=== PATIENT | male | born 1950 | race Caucasian/White ===

== ENCOUNTER → 2020-05-27 08:12 | Outpatient (CLI) | payer MEDICARE, SELFPAY ==
[2020-05-27 09:31] LABS: Coronavirus 19 IgG Antibody Negative (Negative); Coronavirus 19 IgM Antibody Negative (Negative)
== END ==
PROVIDERS: Visit Provider Internal Medicine Gastroenterology
DX: Z01.818 Encounter for other preprocedural examination (principal); Z86.010 Personal history of colon polyps
CPT/HCPCS: 36415; 86328

== ENCOUNTER 2020-05-29 06:46 | Day surgery (SDC) | payer MEDICARE, SELFPAY ==
[2020-05-22 13:15] VITALS: BMI 29.0
[2020-05-29 06:59] VITALS: BP 134/79; PULSE 92; RESP 18; TEMP 36.7; O2SAT 98
[2020-05-29 07:14] LABS: POC Glucose,Bedside 221 (70-110)
[2020-05-29 07:27] VITALS: O2SAT 97
--- NOTE | 2020-05-29 07:31 | P.PN_ITS ---
[facility] Anesthesia Checklist - Patient Identification Patient Identification: Arm Band, Verbal (Name & ) - Structural Data Admitted From: Home Planned Operative Procedure/s: Colonoscopy Consent for Planned Operative Procedure(s) Verified: Yes Verified Documents: Surgical Consent, History and Physical - NPO Status Verified Time NPO: 00:00 - Additional verifications Fingerstick Blood Glucose: 221 Anesthesia Reactions: No - Airway Assessment C-Spine Mobility Assessed: Yes TMJ Mobility Assessed: Yes Dentition: Poor Dentition (missing teeth) - Neurological Assessment Level of Consciousness: Awake, Alert, Appropriate, Follows Commands Hx Seizures: No Numbness or tingling in extremities: No - Anesthesia Plan Anesthesia Risk discussed: Yes Anesthesia Plan: Verified ASA Class: III Anesthesia Type: [facility] History I have reviewed the patient's past medical history: Yes Medical History: Reports:: Atherosclerotic Heart Disease, Coronary Artery Di sease, Cerebrovascular Accident (x2), Diabetes Mellitus Type 2, Gastroesophageal Reflux Disease(GERD), Hyperlipidemia, Hypertension, Kidney Stones, Migraine Denies:: Cancer, Diabetes Mellitus Type 1, Internal Pacemaker, Lung Disease, MRSA, Seizures *Have you ever received a pneumonia vaccine?: No *Have you received a flu vaccine this season?: Yes Other Medical History: Reports: Hypothyroidism, Other (SEFERINO) Anesthesia experience/problems:: No prior complications Laterality Cases: Bilateral: Tonsillectomy Other Surgeries: Yes: Appendectomy, Cardiac Catheterization, Cholecystectomy, Coronary Stent, Hernia Repair. No: Pacemaker Amputation: No Fractures: No - *Social History Last grade of school completed: High school graduate Smoking Status: Former smoker Tobacco Type: cigarettes # Packs/Day (cigarettes): 1 Alcohol Intake: never Substance Use Type: denies use *Occupational Status:: employed Housing: house Household Members: spouse *Travel in the last 8 weeks: None Family Hx:: Other (NA)
--- NOTE | 2020-05-29 07:31 | HMH.PROC ---
[facility] Procedure Note Procedure Note:: Colonoscopy Procedure Report: Colonoscopy with cold snare polypectomy Endoscopist: Neto Lopez II, MD Referring physician: Axel Hamlin MD Date of Procedure: May 29, 2020 Equipment: Olympus 180 variable stiffness pediatric colonoscope Sedation: MAC sedation Indication: Mr. Carrasco is a 69-year-old gentleman who is here for follow-up screening/surveillance colonoscopy secondary to a personal history of colon polyps. His last colonoscopy in August 2017 revealed a single 5 mm polyp (hyperplastic polyp) which was removed (Kevin Escalona MD). The patient reports no abdominal pain, weight loss, change in his bowel habits or rectal bleeding. He does have a history of Valenzuela's esophagus with focal low-grade dysplasia. He has had radiofrequency ablation in January 2019, April 2019 and April 2020. Biopsies of the small amount of remaining Valenzuela's esophagus showed no evidence of dysplasia on his recent EGD. Procedure: Prior to the procedure, a history and physical exam was performed, and patient's medications and allergies were reviewed. The risks, benefits and alternatives of the sedation and procedure were discussed with the patient. All questions were answered and informed consent was obtained. The patient was brought to the procedure room. Patient identification and proposed procedure were verified by the physician and the nurse. The patient was placed in a left lateral decubitus position and the scope was passed under direct vision. Throughout the procedure, the patient's blood pressure, pulse, and oxygen saturations were monitored continuously. The colonoscopy was accomplished without difficulty. The patient tolerated the procedure well. Findings: On digital rectal examination there was normal rectal tone. There were no external hemorrhoids. The prostate was 2-3+, smooth, soft, symmetric without nodules. The colonoscope was introduced through the anal canal to the rectum and advanced to the cecum. The ileocecal valve and appendiceal orifice were identified. The scope was advanced a short distance into the ileum which appeared grossly normal. The scope was then withdrawn into the colon. The cecum, ascending and transverse colon were grossly normal. There were 2 polyps in the descending colon (both 5 mm) and one polyp in the rectum (3 mm) which were removed via cold snare polypectomy. The remainder of the descending, sigmoid and rectum were grossly normal. There were no other mucosal abnormalities identified. Upon retroflexion within the rectum there were grade 1-2 internal hemorrhoids.The preparation was excellent throughout with Billings Preparation Score of 9. The cecal time was 12 minutes. Impression: 1. Colonic polyps x3 2. Grade 1-2 internal hemorrhoids Plan: I will follow up the polyp pathology and recommend repeat colonoscopy again in 5 years based upon the polyp histology. I would encourage fiber supplementation on a long-term daily maintenance basis.
[2020-05-29 07:52] VITALS: BP 73/54; PULSE 73; RESP 10; TEMP 36.2; O2SAT 95
[2020-05-29 08:02] VITALS: BP 88/44; PULSE 64; RESP 12; O2SAT 92
[2020-05-29 08:12] VITALS: BP 99/43; PULSE 71; RESP 16; O2SAT 97
[2020-05-29 08:22] VITALS: BP 123/68; PULSE 75; RESP 16; TEMP 36.2; O2SAT 97
== END 2020-05-29 08:33 | disposition home or self-care (01) ==
LOC: OUTP 06:47
PROVIDERS: PCP Family Medicine; Visit Provider Internal Medicine Gastroenterology
PROC: 0DJD8ZZ Inspection of Lower Intestinal Tract, Via Natural or Artificial Opening Endoscopic (ICD-10-PCS; CPT 45378; principal; 2020-05-29 08:00)
DX: Z12.11 Encounter for screening for malignant neoplasm of colon (principal); Z86.010 Personal history of colon polyps; Z87.19 Personal history of other diseases of the digestive system; K63.5 Polyp of colon; K64.0 First degree hemorrhoids; I25.10 Atherosclerotic heart disease of native coronary artery without angina pectoris; E11.9 Type 2 diabetes mellitus without complications; Z86.73 Personal history of transient ischemic attack (TIA), and cerebral infarction without residual deficits; K21.9 Gastro-esophageal reflux disease without esophagitis; E78.5 Hyperlipidemia, unspecified; I10 Essential (primary) hypertension; G43.909 Migraine, unspecified, not intractable, without status migrainosus
CPT/HCPCS: 45385; 82962; 88305; J2704

== ENCOUNTER → 2022-02-07 08:31 | Outpatient (CLI) | payer MEDICARE, SELFPAY ==
--- NOTE | 2022-02-07 08:36 | US_ITS ---
FINAL REPORT TECHNIQUE: Ultrasound images of the kidneys were obtained. CLINICAL HISTORY: CKD,GFR 15-29 FINDINGS: US RETROPERITONEAL The right kidney measures 10.3 cm in length. It is normal in echogenicity. There is no hydronephrosis. The left kidney measures 11.2 cm in length. It is normal in echogenicity. There is a 1.7 cm cyst in the upper pole. There is no hydronephrosis. Limited images of the liver are unremarkable. IMPRESSION: 1.7 cm left renal cyst. No hydronephrosis. Reviewed, Interpreted and Dictated by Brenton Barahona III, MD Transcribed by Gwendolyn Barron Authenticated by Brenton Barahona III, MD on 02/07/2022 10:08:[address] [facility]
== END ==
PROVIDERS: PCP Nurse Practitioner Family; Visit Provider Nurse Practitioner Family
DX: N18.4 Chronic kidney disease, stage 4 (severe) (principal)
CPT/HCPCS: 76770

== ENCOUNTER → 2022-03-18 14:23 | Outpatient (POV) | payer MEDICARE, SELFPAY | PROVIDERS: Visit Provider Internal Medicine Nephrology | DX: Z00.00 Encounter for general adult medical examination without abnormal findings (principal) ==

== ENCOUNTER → 2022-03-19 10:49 | Outpatient (CLI) | payer MEDICARE, SELFPAY ==
[2022-03-19 12:13] LABS: Albumin Level 3.6 g/dl (3.5-5.0); Anion Gap 12.5 mEq/L (5-15); Blood Urea Nitrogen 23 mg/dl (9-20); Calcium 9.2 mg/dl (8.4-10.2); Carbon Dioxide 26 mmol/L (22.0-30.0); Chloride 100 mmol/L (98-107); Estimated Glomerular Filt Rate 30 ml/min (>60); GFR (African American) 36 ML/MIN (>60); Glucose 294 mg/dl (74-100); Potassium 4.5 mmoL/L (3.5-5.1); Sodium 134 mmol/L (136-145)
[2022-03-19 12:16] LABS: Hematocrit 31.2 % (42.0-52.0); Hemoglobin 10.7 g/dL (14.1-18.0); Mean Corpuscular HGB Conc 34.4 g/dL (31.8-35.4); Mean Corpuscular Hemoglobin 31.7 pg (27.0-31.2); Mean Corpuscular Volume 92.1 fl (80-94); Platelet Count 244 K/mm3 (142-424); Red Blood Count 3.38 M/mm3 (4.60-6.20); Red Cell Distribution Width 14.2 % (11.5-17.5); White Blood Count 6.1 K/mm3 (4.8-10.8)
[2022-03-19 12:27] LABS: Intact Parathyroid Hormone 102.2 pg/mL (7.5-53.5)
[2022-03-19 12:31] LABS: 25-OH Vitamin D, Total 14.2 ng/mL (30-100)
[2022-03-19 13:39] LABS: Microscopic, Urine URINE MICROSCOPIC (MICROSCOPIC)
[2022-03-19 14:05] LABS: Appearance,Urine CLEAR (Clear); Bilirubin,Urine Negative (Negative); Blood, Urine TRACE-I (Negative); Color,Urine YELLOW (Yellow); Glucose,Urine (UA) 3+ (Negative); Ketones,Urine Negative (Negative); Leukocyte Esterase,Urine Negative (Negative); Nitrate,Urine Negative (Negative); Protein,Urine TRACE (Negative); Urobilinogen,Urine 0.2 EU/dl (0.2)
[2022-03-19 14:22] LABS: Bacteria,Urine Trace /lpf; RBC,Urine Occasional #/hpf (0-3); Squamous Epithelial Cell,Urine Occasional #/hpf (0-5); WBC,Urine Occasional #/hpf (0-3)
[2022-03-19 14:32] LABS: Creatinine,Urine Random 92 mg/dL (Not Estab.)
== END ==
PROVIDERS: PCP Nurse Practitioner Family; Visit Provider Internal Medicine Nephrology
DX: N18.4 Chronic kidney disease, stage 4 (severe) (principal)
CPT/HCPCS: 36415; 80069; 81001; 82306; 82570; 83970; 84155; 85014; 85018; 85048; 85049

== ENCOUNTER → 2022-05-13 10:08 | Outpatient (CLI) | payer MEDICARE, SELFPAY ==
[2022-05-13 10:41] LABS: Basophils # 0.1 K/mm3 (0-0.2); Basophils % 0.9 % (0.1-2.0); Eosinophils # 0.1 K/mm3 (0.0-0.4); Eosinophils % 1.1 % (0.1-12.0); Hematocrit 35.3 % (42.0-52.0); Hemoglobin 11.1 g/dL (14.1-18.0); Lymphocytes # 1.1 K/mm3 (0.7-4.5); Lymphocytes % 20.2 % (10-50); Mean Corpuscular HGB Conc 31.5 g/dL (31.8-35.4); Mean Corpuscular Hemoglobin 30.6 pg (27.0-31.2); Mean Corpuscular Volume 97.1 fl (80-94); Mean Platelet Volume 8.9 fl (7.4-10.4); Monocytes # 0.5 K/mm3 (0.1-1.0); Monocytes % 9.5 % (1.7-9.3); Neutrophils # 3.6 K/mm3 (1.8-7.8); Neutrophils % 68.4 % (37.0-80.0); Platelet Count 337 K/mm3 (142-424); Red Blood Count 3.63 M/mm3 (4.60-6.20); Red Cell Distribution Width 15.1 % (11.5-17.5); White Blood Count 5.3 K/mm3 (4.8-10.8)
[2022-05-13 11:41] LABS: Chloride 105 mmol/L (98-107); Potassium 4.5 mmoL/L (3.5-5.1); Sodium 135 mmol/L (136-145)
[2022-05-13 11:42] LABS: Albumin Level 3.9 g/dl (3.5-5.0)
[2022-05-13 11:44] LABS: Anion Gap 10.5 mEq/L (5-15); Blood Urea Nitrogen 26 mg/dl (9-20); Carbon Dioxide 24 mmol/L (22.0-30.0); Estimated Glomerular Filt Rate 30 ml/min (>60); GFR (African American) 36 ML/MIN (>60); Phosphorous 3.6 mg/dl (2.5-4.5)
[2022-05-13 11:45] LABS: Calcium 9.4 mg/dl (8.4-10.2); Glucose 181 mg/dl (74-100)
[2022-05-13 17:26] LABS: Microscopic, Urine URINE MICROSCOPIC (MICROSCOPIC)
[2022-05-13 18:49] LABS: Appearance,Urine CLEAR (Clear); Bilirubin,Urine Negative (Negative); Blood, Urine Negative (Negative); Color,Urine YELLOW (Yellow); Glucose,Urine (UA) 1+ (Negative); Ketones,Urine Negative (Negative); Leukocyte Esterase,Urine 1+ (Negative); Nitrate,Urine Negative (Negative); PH,Urine 5.5 (5.0-8.5); Protein,Urine Negative (Negative); Urobilinogen,Urine 0.2 EU/dl (0.2)
[2022-05-13 19:31] LABS: Creatinine,Urine Random 82 mg/dL (Not Estab.)
[2022-05-13 19:37] LABS: Bacteria,Urine 3+ /lpf
== END ==
PROVIDERS: PCP Nurse Practitioner Family
DX: N28.9 Disorder of kidney and ureter, unspecified (principal); B95.2 Enterococcus as the cause of diseases classified elsewhere
CPT/HCPCS: 36415; 80069; 81001; 82570; 84155; 85025; 87086; 87088; 87186

== ENCOUNTER 2022-05-23 21:35 | Emergency (ER) | payer MEDICARE, SELFPAY ==
[2022-05-23 21:30] VITALS: BP 160/83; PULSE 93; RESP 18; TEMP 38.7; O2SAT 98; BMI 27.6
--- NOTE | 2022-05-23 21:35 | XR_ITS ---
PROCEDURE INFORMATION: Exam: XR Chest Exam date and time: 05/23/2022 10:06 PM Age: 71 years old Clinical indication: Fever TECHNIQUE: Imaging protocol: Radiologic exam of the chest. Views: 1 view. COMPARISON: No relevant prior studies available. FINDINGS: Lungs: No lobar consolidation, pleural effusion or pulmonary edema. Pleural spaces: See Lungs finding. Heart/Mediastinum: Unremarkable. No cardiomegaly. Bones/joints: Median sternotomy IMPRESSION: No lobar consolidation, pleural effusion or pulmonary edema.
--- NOTE | 2022-05-23 21:35 | CT_ITS ---
PROCEDURE INFORMATION: Exam: CT Head Without Contrast Exam date and time: 05/23/2022 9:47 PM Age: 71 years old Clinical indication: Injury or trauma; Fall; Blunt trauma (contusions or hematomas); Additional info: Fall, head injury TECHNIQUE: Imaging protocol: Computed tomography of the head without contrast. Radiation optimization: All CT scans at this facility use at least one of these dose optimization techniques: automated exposure control; mA and/or kV adjustment per patient size (includes targeted exams where dose is matched to clinical indication); or iterative reconstruction. COMPARISON: No relevant prior studies available. FINDINGS: Brain: No intracranial bleed, suspicious mass, or mass effect. Ventricles appear unremarkable. There is low attenuation change in the white matter most consistent with chronic age related small vessel ischemic change. No acute territorial infarction is seen. These can be initially occult on head CT. Cerebral ventricles: See Brain finding. Paranasal sinuses: Visualized sinuses are unremarkable. No fluid levels. Mastoid air cells: Visualized mastoid air cells are well aerated. Bones/joints: Unremarkable. No acute fracture. Soft tissues: Unremarkable. IMPRESSION: 1. No intracranial bleed, suspicious mass, or mass effect. Ventricles appear unremarkable. 2. There is low attenuation change in the white matter most consistent with chronic age related small vessel ischemic change. No acute territorial infarction is seen. These can be initially occult on head CT.
--- NOTE | 2022-05-23 21:53 | HMH.EDGENADL ---
ED Disposition Clinical Impression: COVID-19 Head injury Qualifiers: Encounter type: initial encounter Qualified Code(s): S09.90XA - Unspecified injury of head, initial encounter Fall Qualifiers: Encounter type: initial encounter Qualified Code(s): W19.XXXA - Unspecified fall, initial encounter Disposition: Home, Self-Care Condition on Discharge: Good Instructions: DI for COVID-19 (Suspected or Confirmed ), DI for Closed Head Injury Additional Instructions: You have been evaluated for fall, head injury. Please monitor your symptoms closely. Tylenol for aches and pains. Use care when standing and walking. Your COVID test today is positive. Please follow-up with your primary care doctor for recheck. Return to the emergency department for any new or worsening symptoms, cough, difficulty breathing, shortness of breath or other concerns. Referrals: Marielos Amaral APRN [Primary Care Provider] - Time of Disposition: 00:28 - Critical Care Critical Care Time: No Attestation: On 05/23/22, the high probability of a clinically significant, sudden or life threatening deterioration of the following system(s) required my full and direct attention, intervention and personal management. The time I documented below is in addition to time spent performing reported procedures but includes the following listed in this critical care notation. Medical Decision Making - Medical Records Medical records reviewed: Yes: I reviewed the patient's medical records. - Roderick Inquiry Pt receiving controlled substance: No Vital Signs: 05/23/22 21:30 Temperature 101.7 F H Temperature Source Oral Pulse Rate [Right] 93 H Respiratory Rate 18 Blood Pressure [Right Arm] 160/83 H Blood Pressure Mean [Right Arm] 108 02 Sat by Pulse Oximetry 98 - Lab Data Lab Results 05/23/22 21:49: WBC 5.7, RBC 3.41 L, Hgb 10.5 L, Hct 31.4 L, MCV 92.1, MCH 30.6, MCHC 33.3, RDW 15.0, Plt Count 245, MPV 7.7, Neut % (Auto) 86.1 H, Lymph % (Auto) 5.5 L, Eddy % (Auto) 6.0, Eos % (Auto) 1.6, Baso % (Auto) 0.9, Neut # (Auto) 4.9, Lymph # (Auto) 0.3 L, Eddy # (Auto) 0.3, Eos # (Auto) 0.1, Baso # (Auto) 0.1, Total Counted 100, Neutrophils % (Manual) 89 H, Lymphocytes % (Manual) 8 L, Monocytes % (Manual) 3, Platelet Estimate Normal, RBC Morphology Normal 05/23/22 21:49: Sodium 133 L, Potassium 4.4, Chloride 104, Carbon Dioxide 22, Anion Gap 11.4, BUN 19, Creatinine 2.40 H, Estimated Creat Clear 34, Estimated GFR 27 L, Est GFR ( Amer) 33 L, Glucose 87, Calcium 8.7, Total Bilirubin 0.1 L, AST 51, ALT 40, Alkaline Phosphatase 69, Total Protein 6.4, Albumin 3.5, Globulin 2.9, Albumin/Globulin Ratio 1.2 05/23/22 22:31: Urine Color Yellow, Urine Appearance Clear, Urine pH 6.0, Ur Specific Vail 1.020, Urine Protein 1+, Urine Glucose (UA) Negative, Urine Ketones Negative, Urine Blood Negative, Urine Nitrate Negative, Urine Bilirubin Negative, Urine Urobilinogen 0.2, Ur Leukocyte Esterase Negative, Urine RBC None, Urine WBC 3-5, Ur Squamous Epith Cells 5-10, Urine Bacteria Trace 05/23/22 23:24: SARS-CoV-2 (PCR) Detected A, Influenza A Untype (PCR) Not detected, Influenza Type B (PCR) Not detected Result diagrams: 05/23/22 21:49 05/23/22 21:49 Orders (Tests/Meds): ED MEDICATIONS Discontinued Medications Generic Name Dose Route Start Last Admin Trade Name Alvaroq PRN Reason Stop Dose Admin Ibuprofen 600 mg 05/23/22 22:23 05/23/22 22:28 Ibuprofen 600 Mg Tablet PO 05/23/22 22:24 600 mg ONCE ONE Administration - CT Data CT Scan: Head Time Received: 22:[address] Reviewed: Yes: I have reviewed the patient's CT results, I have viewed the radiologist's interpretation Preliminary Findings: Normal/NAD Findings Narrative: IMPRESSION: 1. No intracranial bleed, suspicious mass, or mass effect. Ventricles appear unremarkable. 2. There is low attenuation change in the white matter most consistent with chronic age related small vessel ischemic
[2022-05-23 21:57] LABS: Basophils # 0.1 K/mm3 (0-0.2); Basophils % 0.9 % (0.1-2.0); Eosinophils # 0.1 K/mm3 (0.0-0.4); Eosinophils % 1.6 % (0.1-12.0); Hematocrit 31.4 % (42.0-52.0); Hemoglobin 10.5 g/dL (14.1-18.0); Lymphocytes # 0.3 K/mm3 (0.7-4.5); Lymphocytes % 5.5 % (10-50); Mean Corpuscular HGB Conc 33.3 g/dL (31.8-35.4); Mean Corpuscular Hemoglobin 30.6 pg (27.0-31.2); Mean Corpuscular Volume 92.1 fl (80-94); Mean Platelet Volume 7.7 fl (7.4-10.4); Monocytes # 0.3 K/mm3 (0.1-1.0); Neutrophils # 4.9 K/mm3 (1.8-7.8); Neutrophils % 86.1 % (37.0-80.0); Platelet Count 245 K/mm3 (142-424); Red Blood Count 3.41 M/mm3 (4.60-6.20); White Blood Count 5.7 K/mm3 (4.8-10.8)
[2022-05-23 22:01] LABS: MANUAL DIFFERENTIAL MANUAL DIFFERENTIAL (MANUAL DIFF)
--- NOTE | 2022-05-23 22:19 | ECG_ITS ---
APPROVED REPORT Exam: Resting ECG HR:92 bpm ECG Measurements Heart Rate 92 AXES IN 187 P 68 QRSd 99 QRS 26 QT 376 T 91 QTc 426 Conclusion SINUS RHYTHM NONSPECIFIC ST & T-WAVE ABNORMALITY ABNORMAL ECG UNCONFIRMED REPORT Electronically signed by : Roc Fajardo MD 05/24/2022 17:01:32
[2022-05-23 22:20] LABS: Alanine Aminotransferase 40 U/L (12-78); Albumin Level 3.5 g/dl (3.5-5.0); Albumin/Globulin Ratio 1.2 (1.1-1.8); Alkaline Phosphatase 69 U/L (38-126); Anion Gap 11.4 mEq/L (5-15); Aspartate Amino Transferase 51 U/L (17-59); Blood Urea Nitrogen 19 mg/dl (9-20); Calcium 8.7 mg/dl (8.4-10.2); Carbon Dioxide 22 mmol/L (22.0-30.0); Chloride 104 mmol/L (98-107); Creatinine Clearance Estimated 34 mL/min (50-200); Estimated Glomerular Filt Rate 27 ml/min (>60); GFR (African American) 33 ML/MIN (>60); Globulin 2.9 g/dL (1.3-3.2); Glucose 87 mg/dl (74-100); Potassium 4.4 mmoL/L (3.5-5.1); Sodium 133 mmol/L (136-145); Total Protein,Serum 6.4 g/dl (6.3-8.2)
[2022-05-23 22:22] LABS: Bilirubin,Total 0.1 mg/dl (0.2-1.3)
[2022-05-23 22:37] LABS: Microscopic, Urine URINE MICROSCOPIC (MICROSCOPIC)
[2022-05-23 22:50] LABS: Appearance,Urine CLEAR (Clear); Bilirubin,Urine Negative (Negative); Blood, Urine Negative (Negative); Color,Urine YELLOW (Yellow); Glucose,Urine (UA) Negative (Negative); Ketones,Urine Negative (Negative); Leukocyte Esterase,Urine Negative (Negative); Nitrate,Urine Negative (Negative); Protein,Urine 1+ (Negative); Urobilinogen,Urine 0.2 EU/dl (0.2)
[2022-05-23 22:58] LABS: Bacteria,Urine Trace /lpf
[2022-05-23 23:26] LABS: Lymphocytes % 8 % (10-50); Monocytes % 3 % (2-9); Neutrophils % 89 % (42-76); Platelet Estimate Normal; RBC Morphology Normal; Total Cells Counted 100
[2022-05-23 23:29] LABS: Influenza A, PCR Not Detected (NotDetected); Influenza B, PCR Not Detected (NotDetected)
[2022-05-23 23:55] LABS: Coronavirus 19, PCR Detected (NotDetected)
[2022-05-24 00:41] VITALS: BP 127/62; PULSE 78; RESP 18; TEMP 36.6; O2SAT 99
== END 2022-05-24 00:43 | disposition home or self-care (01) ==
PROVIDERS: Emergency Provider Emergency Medicine; PCP Nurse Practitioner Family
DX: U07.1 COVID-19 (principal); S09.90XA Unspecified injury of head, initial encounter; R50.9 Fever, unspecified; I10 Essential (primary) hypertension; I25.10 Atherosclerotic heart disease of native coronary artery without angina pectoris; K21.9 Gastro-esophageal reflux disease without esophagitis; E78.5 Hyperlipidemia, unspecified; E11.9 Type 2 diabetes mellitus without complications; E03.9 Hypothyroidism, unspecified; G43.909 Migraine, unspecified, not intractable, without status migrainosus; Z88.0 Allergy status to penicillin; Z88.1 Allergy status to other antibiotic agents; Z88.3 Allergy status to other anti-infective agents; Z86.73 Personal history of transient ischemic attack (TIA), and cerebral infarction without residual deficits; Z87.442 Personal history of urinary calculi; Z87.891 Personal history of nicotine dependence; W06.XXXA Fall from bed, initial encounter
CPT/HCPCS: 70450; 71045; 80053; 81001; 85007; 85025; 93005; 99285; C9803; U0003; U0005

== ENCOUNTER → 2022-08-08 14:08 | Outpatient (CLI) | payer MEDICARE, SELFPAY ==
--- NOTE | 2022-08-08 14:20 | XR_ITS ---
FINAL REPORT CLINICAL HISTORY: SOB COMPARISON: 05/23/2022 FINDINGS: Cardiomegaly is noted. Postoperative changes are seen from median sternotomy. There are new right lung base opacities worrisome for pneumonia. There is no pneumothorax. The bony thorax is intact. IMPRESSION: New right lung base opacities worrisome for pneumonia.. Reviewed, Interpreted and Dictated by Brenton Barahona III, MD Transcribed by Gwendolyn Barron Authenticated and [facility]
[2022-08-08 14:51] LABS: Basophils # 0.1 K/mm3 (0-0.2); Basophils % 0.6 % (0.1-2.0); Eosinophils # 0.1 K/mm3 (0.0-0.4); Eosinophils % 1.9 % (0.1-12.0); Hematocrit 34.2 % (42.0-52.0); Hemoglobin 11.3 g/dL (14.1-18.0); Lymphocytes # 1.1 K/mm3 (0.7-4.5); Lymphocytes % 15.7 % (10-50); Mean Corpuscular Hemoglobin 30.7 pg (27.0-31.2); Mean Platelet Volume 8.8 fl (7.4-10.4); Monocytes # 0.6 K/mm3 (0.1-1.0); Monocytes % 8.7 % (1.7-9.3); Neutrophils # 5.4 K/mm3 (1.8-7.8); Neutrophils % 73.2 % (37.0-80.0); Platelet Count 305 K/mm3 (142-424); Red Blood Count 3.67 M/mm3 (4.60-6.20); Red Cell Distribution Width 15.2 % (11.5-17.5); White Blood Count 7.3 K/mm3 (4.8-10.8)
[2022-08-08 17:42] LABS: Chloride 99 mmol/L (98-107); Potassium 4.6 mmoL/L (3.5-5.1); Sodium 137 mmol/L (136-145)
[2022-08-08 17:45] LABS: Alanine Aminotransferase 40 U/L (12-78); Albumin/Globulin Ratio 1.3 (1.1-1.8); Alkaline Phosphatase 97 U/L (38-126); Anion Gap 17.6 mEq/L (5-15); Aspartate Amino Transferase 40 U/L (17-59); Bilirubin,Total 0.6 mg/dl (0.2-1.3); Blood Urea Nitrogen 26 mg/dl (9-20); Calcium 9.2 mg/dl (8.4-10.2); Carbon Dioxide 25 mmol/L (22.0-30.0); Cholesterol 118 mg/dl (140-200); Estimated Glomerular Filt Rate 33 ml/min (>60); GFR (African American) 40 ML/MIN (>60); Globulin 3.1 g/dL (1.3-3.2); Glucose 149 mg/dl (74-100); Total Protein,Serum 7.1 g/dl (6.3-8.2); Triglycerides 99 mg/dl (30-150); VLDL Cholesterol 20 mg/dL (0-40)
[2022-08-08 17:46] LABS: Chol/HDL Ratio 2.7 (1-3.5); HDL Cholesterol 44 mg/dl (40-60)
[2022-08-08 17:56] LABS: Direct LDL Cholesterol 45.55 mg/dL (100-129)
[2022-08-08 17:59] LABS: Troponin I < 0.01 ng/ml (0.00-0.034)
== END ==
LOC: LAB 14:11
PROVIDERS: PCP Nurse Practitioner Family; Visit Provider Nurse Practitioner Family
DX: R06.02 Shortness of breath (principal); E11.9 Type 2 diabetes mellitus without complications; E03.9 Hypothyroidism, unspecified; Z95.1 Presence of aortocoronary bypass graft; Z79.4 Long term (current) use of insulin
CPT/HCPCS: 36415; 71046; 80053; 80061; 83036; 84443; 84484; 85025

== ENCOUNTER → 2022-08-22 13:20 | Outpatient (CLI) | payer MEDICARE, SELFPAY ==
[2022-08-22 14:21] LABS: Chloride 99 mmol/L (98-107); Potassium 4.2 mmoL/L (3.5-5.1); Sodium 138 mmol/L (136-145)
[2022-08-22 14:24] LABS: Anion Gap 16.2 mEq/L (5-15); Blood Urea Nitrogen 23 mg/dl (9-20); Calcium 9.2 mg/dl (8.4-10.2); Carbon Dioxide 27 mmol/L (22.0-30.0); Estimated Glomerular Filt Rate 37 ml/min (>60); GFR (African American) 45 ML/MIN (>60); Glucose 221 mg/dl (74-100)
== END ==
PROVIDERS: PCP Nurse Practitioner Family; Visit Provider Internal Medicine
DX: E11.22 Type 2 diabetes mellitus with diabetic chronic kidney disease (principal); I48.0 Paroxysmal atrial fibrillation; N18.4 Chronic kidney disease, stage 4 (severe); Z95.1 Presence of aortocoronary bypass graft; Z95.5 Presence of coronary angioplasty implant and graft; I20.8 Other forms of angina pectoris; Z79.4 Long term (current) use of insulin
CPT/HCPCS: 36415; 80048

== ENCOUNTER → 2022-08-23 07:45 | Outpatient (CLI) | payer MEDICARE, SELFPAY ==
--- NOTE | 2022-08-23 07:51 | CT_ITS ---
FINAL REPORT CLINICAL HISTORY: I25.10 - Atherosclerotic heart disease of [place] coronary.... cough, pneumonia, some soa FINDINGS: Axial images were obtained in 1.25 mm slices at 10 mm intervals from the lung apex to the mid abdomen by computed tomography. Coronal reformatted images were obtained. This study was performed with techniques to keep radiation doses as low as reasonably achievable, (ALARA). Individualized dose reduction techniques using automated exposure control or adjustment of mA and/or kV according to the patient's size were employed. There is streak artifact from sternotomy wires and coronary ostial markers. There is no adenopathy. There is dense coronary artery calcification. There is no pericardial or pleural effusion. There is minimal interstitial opacity in the periphery of the lungs that may be due to minimal fibrosis. Images through the upper abdomen demonstrate the gallbladder to be absent. There is a partially calcified Angelchik prosthesis. IMPRESSION: Minimal interstitial opacity in the periphery of the lungs may represent minimal fibrosis. Reviewed, Interpreted and Dictated by Duran Macias MD Transcribed by Galen Figueroa Authenticated and . [facility]
--- NOTE | 2022-08-23 08:13 | CA_ITS ---
FINAL REPORT CLINICAL HISTORY: HTN,HX KIDNEY STONES FINDINGS: Aorta velocity: 90 cm/sec Right kidney: 10.9 cm. No evidence of hydronephrosis or mass. Right intrarenal RI: 0.74 Right renal artery velocity: 112 cm/sec. Right RAR (Renal artery-Aortic Ratio): 1.25 Left Kidney: 11.9 cm. No evidence of hydronephrosis or mass. Left intrarenal RI: 0.69 Left renal artery velocity: 495 cm/sec. Left RAR (Renal Artery-Aortic Ratio): 5.51 IMPRESSION: Less than 60% right renal artery stenosis. High-grade left renal artery stenosis. Recommend correlation with CTA. Reviewed, Interpreted and Dictated by Duran Macias MD Transcribed by Galen Figueroa Authenticated and [facility]
== END ==
LOC: RT 07:46
PROVIDERS: PCP Nurse Practitioner Family; Visit Provider Internal Medicine
DX: E11.22 Type 2 diabetes mellitus with diabetic chronic kidney disease (principal); I48.0 Paroxysmal atrial fibrillation; J84.10 Pulmonary fibrosis, unspecified; N18.4 Chronic kidney disease, stage 4 (severe); Z95.1 Presence of aortocoronary bypass graft; Z95.5 Presence of coronary angioplasty implant and graft; I10 Essential (primary) hypertension; I20.8 Other forms of angina pectoris; Z79.4 Long term (current) use of insulin
CPT/HCPCS: 71250; 93306; 93976

== ENCOUNTER → 2022-09-06 05:58 | Outpatient (CLI) | payer MEDICARE, SELFPAY ==
--- NOTE | 2022-09-06 | CA_ITS ---
APPROVED REPORT Exam: Pharmacologic Technologist: Isis Victoria, Ht: 5 ft 9 in Wt: 188 lbs BSA: 2.01 m2 HR: 67 bpm BP: 174/80 mmHg Rhythm: NSR, INF/STTT ABNORMALITIES Medical History Medical History: Diabetes Medications: Omeprazole,,,,, Levothyroxine,,,,, Amiodarone,,,,, Hydralazine,,,,, Atorvastatin,,,,, Metoprolol Succinate,,,,, TAMSULOSIN,,,,, Apixaban,,,,, Vit D2,,,,, INSULIN GLARGINE,,,,, Vit B-12,,,,, JanOVIA,,,,, Allergies: AMOXICILLIN, PENICILLIN Cardiac Risk Factors: Diabetes Stress Test Details Test: LEXISCAN HR Resting HR: 70 bpm Max Heart Rate (APMHR): 150.049085 bpm Max HR Achieved: 80 bpm Target HR (85% APMHR): 127.461030 bpm % of APMHR: 53.33 Recovery HR: 75 bpm BP Resting BP: 174/80 mmHg Max BP: 174/80 mmHg Recovery BP: 150.0/69.0 mmHg ECG Resting ECG: NSR, INF/STT ABNORMALITIES Clinical Reason for Termination: Completed Protocol Exercise duration: 04:01 min Highest Stage Achieved: Exercise capacity: 1.0 METs Stress ECG Conclusion <1.[address] SEGMENT CHANGES NON-DIAGNOSTIC Test Summary REST 15:05 . . 70 . 174/ 80 . . Stage 1 01:00 . . 76 . . . . Stage 2 01:00 . . 77 . . . . Stage 3 01:00 . . 78 . 142/ 61 . . Stage 4 01:00 . . 75 . 150/ 67 . . Stage 4 01:01 . . 75 . 150/ 67 . Stop exercise at 04:01 RECOVERY 01:00 . . 75 . 150/ 69 . . RECOVERY 02:00 . . 76 . 150/ 69 . . RECOVERY 02:30 . . 72 . 150/ 69 . . Electronically signed by : Jackson Back MD 09/06/2022 10:37:35
--- NOTE | 2022-09-06 06:31 | NM_ITS ---
APPROVED REPORT Exam: Nuclear Stress Test Indication: CAD, CABG, HTN, DM, HYPERLIPIDEMIA, TOB USE, FATIGUE Patient Location: Outpatient Stress Tech: Isis Victoria [place] Tech:Molly VieiraGENA RT(R)(N) Ht: 5 ft 9 in Wt: 188 lbs HR: 67 bpm BP: 174/80 mmHg BSA: 2.01 m2 TID: 1.15 BMI: 27.7 History: CAD, CABG, HTN, DM, HYPERLIPIDEMIA, TOB USE, FATIGUE Procedure: Patient received a 0.4 mg of intravenous Lexiscan, resting heart rate 67 bpm, resting blood pressure 174/80 mmHg, with Lexiscan maximum heart rate achived was 79 bpm which is Less than 85 % of the maximum predicted heart rate and blood pressure was 142/61 mmHg. With Lexiscan, patient denied any complaint of chest pain. Electrocardiogram Resting electrocardiogram shows sinus rhythm, with Lexiscan there is less than 1.[address] segment depression from the baseline EKG. The EKG portion of the Lexiscan is nondiagnostic. Cardiac Stress and Resting SPECT Images: Cardiac Stress and Resting SPECT images were obtained using technetium 99m Myoview 30.8 mCi stress and 10.10 mCi at rest. Gated SPECT for analysis of segmental wall motion and calculation of the ejection fraction also done. Prone images were also obtained. Cardiac stress and rest SPECT images showed reversible ischemia involving the inferior apical and apical wall, computer derived ejection fraction is 38%, left ventricle is globally hypokinetic, right ventricle is mildly enlarged with normal contractility. Conclusion: 1. The EKG portion of the Lexiscan is nondiagnostic. 2. Scintigraphic evidence of reversible ischemia involving the inferior apical and apical wall, ejection fraction 38%, left ventricular global hypokinetic right ventricle is mildly enlarged with normal contractility. 3. Abnormal Lexiscan Myoview study. Electronically signed by : Jackson Back MD 09/06/2022 12:39:31
== END ==
LOC: RAD 05:59
PROVIDERS: PCP Nurse Practitioner Family; Visit Provider Internal Medicine
DX: E11.22 Type 2 diabetes mellitus with diabetic chronic kidney disease (principal); I48.0 Paroxysmal atrial fibrillation; J84.10 Pulmonary fibrosis, unspecified; N18.4 Chronic kidney disease, stage 4 (severe); Z95.1 Presence of aortocoronary bypass graft; Z95.5 Presence of coronary angioplasty implant and graft; I20.8 Other forms of angina pectoris
CPT/HCPCS: 78452; 93017; A9502; J2785

== ENCOUNTER 2022-09-13 08:54 | Day surgery (SDC) | payer MEDICARE, SELFPAY ==
[2022-09-13] VITALS (19 sets, daily range): BP systolic 135–210; BP diastolic 81–114; PULSE 60–79; RESP 16–20; O2SAT 94–99; BMI 27.4
--- NOTE | 2022-09-13 07:19 | IR_ITS ---
APPROVED REPORT Patient Location: Outpatient [employer] Operator: GENA Carias RT (R) PROCEDURES Right heart catheterization Left heart catheterization Left ventriculogram Selective coronary angiogram Selective engagement of the left internal mammary artery to the LAD Selective engagement of the saphenous vein graft to the circumflex artery Select engagement of the saphenous vein graft to the diagonal artery Selective engagement of the saphenous vein graft to the right coronary Bilateral selective renal angiography INDICATION Coronary artery disease, Left ventricular dysfunction ejection fraction 38%, History of coronary bypass surgery, High risk abnormal Myoview, Chronic renal failure creatinine 2.2, Suspected renovascular hypertension with renal artery stenosis Informed consent was obtained prior to the procedure. COMPLICATIONS NONE Estimated Blood Loss: LESS THAN 10 ML TECHNIQUE One percent lidocaine used to anesthetize the right groin. The right femoral artery was accessed via the Seldinger technique and a 5 German sheath was placed in the right femoral artery. A JL 4, JR4 catheter were used to perform left heart catheterization, left ventriculogram selective coronary angiography as well as selective engagement of the 3 vein grafts and the left internal mammary artery. The JR4 catheter was used to selectively intubate each renal artery. 1% lidocaine was used to anesthetize the right groin and the right femoral vein was accessed via the Salinger technique. A 7 German sheath was placed in the right femoral vein. A Lockbourne-Ronda catheter was floated under fluoroscopic and hemodynamic guidance into the pulmonary artery where right heart catheterization hemodynamics evaluation was performed. At the end of the diagnostic angiogram the patient was transferred to the postop holding area in stable condition for sheath removal. ANGIOGRAPHIC RESULTS The left main artery Patent The left anterior descending artery Proximally occluded. It gives rise to a high small to medium sized first diagonal artery which has proximal 50 to 60% stenosis and a mid vessel 50% stenosis. The circumflex artery Is proximally occluded The right coronary artery Is dominant and has proximal calcified 80% stenoses mid vessel 80% stenoses distal 80 to 90% stenoses. Competitive flow was identified in the posterior descending artery. There is inline flow into a moderate-sized posterior lateral branch The KEANE ventriculogram reveals Dilated with ejection fraction of 40% with global hypokinesis The left ventricular end-diastolic pressure 18 mmHg BLOOD graft to LAD is patent Saphenous vein graft to posterior descending arteries patent Saphenous vein graft to circumflex arteries patent Saphenous vein graft to diagonal artery is occluded Right renal artery singular and widely patent Left renal artery singular and widely patent Right atrial pressure 10 mmHg Pulmonary pressure 40/25 mmHg Pulmonary occlusion pressure 20 mmHg Right atrial saturation 79% Pulmonary saturation 77% Aortic saturation 100% Hemoglobin 12.5 Cardiac output 6.5 L/min via Cuong IMPRESSION Coronary artery disease as described above Dilated ventricle with global hypokinesis estimate ejection fraction 40% Mildly elevated left-sided filling pressures as described above Normal renal arteries PLAN 1. Patient likely requires higher diuretics to decrease left-sided filling pressures 2. Continue medical management for coronary artery disease 3. Aggressive risk factor modification 4. Continue medical management for renal disease Electronically signed by : Merritt Martins MD 09/13/2022 11:54:23
[2022-09-13 09:33] LABS: MANUAL DIFFERENTIAL MANUAL DIFFERENTIAL (MANUAL DIFF)
[2022-09-13 09:38] LABS: Chloride 102 mmol/L (98-107); Potassium 3.9 mmoL/L (3.5-5.1); Sodium 138 mmol/L (136-145)
[2022-09-13 09:41] LABS: Anion Gap 12.9 mEq/L (5-15); Blood Urea Nitrogen 21 mg/dl (9-20); Carbon Dioxide 27 mmol/L (22.0-30.0); Creatinine Clearance Estimated 37 mL/min (50-200); Estimated Glomerular Filt Rate 30 ml/min (>60); GFR (African American) 36 ML/MIN (>60)
[2022-09-13 09:42] LABS: Calcium 9.4 mg/dl (8.4-10.2); Glucose 259 mg/dl (74-100)
[2022-09-13 09:44] LABS: Basophils # 0.1 K/mm3 (0-0.2); Basophils % 0.7 % (0.1-2.0); Eosinophils # 0.1 K/mm3 (0.0-0.4); Eosinophils % 1.1 % (0.1-12.0); Hematocrit 38.8 % (42.0-52.0); Hemoglobin 12.5 g/dL (14.1-18.0); Lymphocytes # 1.6 K/mm3 (0.7-4.5); Lymphocytes % 17.6 % (10-50); Mean Corpuscular HGB Conc 32.2 g/dL (31.8-35.4); Mean Corpuscular Hemoglobin 30.1 pg (27.0-31.2); Mean Corpuscular Volume 93.7 fl (80-94); Mean Platelet Volume 8.4 fl (7.4-10.4); Monocytes # 0.5 K/mm3 (0.1-1.0); Monocytes % 5.7 % (1.7-9.3); Neutrophils # 6.8 K/mm3 (1.8-7.8); Platelet Count 265 K/mm3 (142-424); Red Blood Count 4.14 M/mm3 (4.60-6.20); Red Cell Distribution Width 14.8 % (11.5-17.5)
[2022-09-13 09:55] LABS: Lymphocytes % 19 % (10-50); Monocytes % 1 % (2-9); Neutrophils % 80 % (42-76); Total Cells Counted 100
[2022-09-13 09:56] LABS: Platelet Estimate Normal; RBC Morphology Normal
[2022-09-13 12:32] LABS: CATHL Arterial O2 SAT 77.2 % (90-100)
[2022-09-13 12:33] LABS: CATHL Venous O2 SAT 79.1 % (75-80)
== END 2022-09-13 15:14 | disposition home or self-care (01) ==
LOC: CATHLAB 08:55
PROVIDERS: PCP Nurse Practitioner Family; Visit Provider Internal Medicine
DX: E11.22 Type 2 diabetes mellitus with diabetic chronic kidney disease (principal); I25.118 Atherosclerotic heart disease of native coronary artery with other forms of angina pectoris; I27.20 Pulmonary hypertension, unspecified; I48.0 Paroxysmal atrial fibrillation; I70.1 Atherosclerosis of renal artery; N18.4 Chronic kidney disease, stage 4 (severe); R94.30 Abnormal result of cardiovascular function study, unspecified; R94.39 Abnormal result of other cardiovascular function study; Z95.1 Presence of aortocoronary bypass graft; Z95.5 Presence of coronary angioplasty implant and graft; Z79.4 Long term (current) use of insulin; Z79.899 Other long term (current) drug therapy; I12.9 Hypertensive chronic kidney disease with stage 1 through stage 4 chronic kidney disease, or unspecified chronic kidney disease; J84.10 Pulmonary fibrosis, unspecified; I69.351 Hemiplegia and hemiparesis following cerebral infarction affecting right dominant side
CPT/HCPCS: 36252; 80048; 82810; 85007; 85014; 85018; 85048; 85049; 93461; 99152; C1725; C1769; C1894; J1644; Q9967

== ENCOUNTER → 2022-10-02 14:50 | Outpatient (CLI) | payer MEDICARE, SELFPAY ==
[2022-10-02 15:25] LABS: Chloride 102 mmol/L (98-107); Potassium 4.2 mmoL/L (3.5-5.1); Sodium 137 mmol/L (136-145)
[2022-10-02 15:28] LABS: Anion Gap 12.2 mEq/L (5-15); Blood Urea Nitrogen 30 mg/dl (9-20); Carbon Dioxide 27 mmol/L (22.0-30.0); Estimated Glomerular Filt Rate 28 ml/min (>60); GFR (African American) 34 ML/MIN (>60); Glucose 257 mg/dl (74-100)
== END ==
PROVIDERS: PCP Nurse Practitioner Family; Visit Provider Nurse Practitioner
DX: I27.20 Pulmonary hypertension, unspecified (principal); I70.1 Atherosclerosis of renal artery; R94.39 Abnormal result of other cardiovascular function study
CPT/HCPCS: 36415; 80048

== ENCOUNTER → 2022-10-09 11:02 | Outpatient (CLI) | payer MEDICARE, SELFPAY ==
[2022-10-09 11:13] LABS: Microscopic, Urine URINE MICROSCOPIC (MICROSCOPIC)
[2022-10-09 12:10] LABS: Basophils # 0.1 K/mm3 (0-0.2); Basophils % 0.8 % (0.1-2.0); Eosinophils # 0.1 K/mm3 (0.0-0.4); Eosinophils % 0.8 % (0.1-12.0); Hematocrit 36.6 % (42.0-52.0); Hemoglobin 12.3 g/dL (14.1-18.0); Lymphocytes # 0.8 K/mm3 (0.7-4.5); Lymphocytes % 11.3 % (10-50); Mean Corpuscular HGB Conc 33.7 g/dL (31.8-35.4); Mean Corpuscular Hemoglobin 30.4 pg (27.0-31.2); Mean Corpuscular Volume 90.3 fl (80-94); Mean Platelet Volume 8.2 fl (7.4-10.4); Monocytes # 0.5 K/mm3 (0.1-1.0); Monocytes % 6.8 % (1.7-9.3); Neutrophils # 5.9 K/mm3 (1.8-7.8); Neutrophils % 80.3 % (37.0-80.0); Platelet Count 235 K/mm3 (142-424); Red Blood Count 4.05 M/mm3 (4.60-6.20); Red Cell Distribution Width 14.6 % (11.5-17.5); White Blood Count 7.3 K/mm3 (4.8-10.8)
[2022-10-09 12:43] LABS: Appearance,Urine CLEAR (Clear); Bilirubin,Urine Negative (Negative); Blood, Urine Negative (Negative); Color,Urine YELLOW (Yellow); Glucose,Urine (UA) TRACE (Negative); Ketones,Urine Negative (Negative); Leukocyte Esterase,Urine Negative (Negative); Nitrate,Urine Negative (Negative); Protein,Urine TRACE (Negative); Specific Gravity, Urine 1.025 (1.005-1.030); Urobilinogen,Urine 0.2 EU/dl (0.2)
[2022-10-09 12:56] LABS: Albumin Level 4.3 g/dl (3.5-5.0); Chloride 100 mmol/L (98-107); Potassium 4.4 mmoL/L (3.5-5.1); Sodium 136 mmol/L (136-145)
[2022-10-09 12:59] LABS: Anion Gap 14.4 mEq/L (5-15); Blood Urea Nitrogen 37 mg/dl (9-20); Calcium 9.2 mg/dl (8.4-10.2); Carbon Dioxide 26 mmol/L (22.0-30.0); Creatinine,Urine Random 167 mg/dL (Not Estab.); Estimated Glomerular Filt Rate 27 ml/min (>60); GFR (African American) 33 ML/MIN (>60); Glucose 197 mg/dl (74-100); Phosphorous 3.6 mg/dl (2.5-4.5)
[2022-10-09 13:13] LABS: Bacteria,Urine Trace /lpf; RBC,Urine Occasional #/hpf (0-3); Squamous Epithelial Cell,Urine Occasional #/hpf (0-5); WBC,Urine Occasional #/hpf (0-3)
== END ==
PROVIDERS: PCP Nurse Practitioner Family
DX: N28.9 Disorder of kidney and ureter, unspecified (principal)
CPT/HCPCS: 36415; 80069; 81001; 82570; 84155; 85025

== ENCOUNTER → 2022-11-26 14:13 | Outpatient (CLI) | payer MEDICARE, SELFPAY ==
[2022-11-26 15:01] LABS: Anion Gap 5.2 mEq/L (5-15); Blood Urea Nitrogen 27 mg/dl (9-20); Calcium 8.8 mg/dl (8.4-10.2); Carbon Dioxide 27 mmol/L (22.0-30.0); Chloride 104 mmol/L (98-107); Estimated Glomerular Filt Rate 35 ml/min (>60); GFR (African American) 43 ML/MIN (>60); Glucose 267 mg/dl (74-100); Potassium 4.2 mmoL/L (3.5-5.1); Sodium 132 mmol/L (136-145)
== END ==
PROVIDERS: PCP Nurse Practitioner Family; Visit Provider Nurse Practitioner
DX: E11.22 Type 2 diabetes mellitus with diabetic chronic kidney disease (principal); I25.10 Atherosclerotic heart disease of native coronary artery without angina pectoris; I27.20 Pulmonary hypertension, unspecified; I70.1 Atherosclerosis of renal artery; N18.4 Chronic kidney disease, stage 4 (severe); R94.30 Abnormal result of cardiovascular function study, unspecified; Z95.5 Presence of coronary angioplasty implant and graft
CPT/HCPCS: 36415; 80048

== ENCOUNTER → 2022-12-30 08:15 | Outpatient (CLI) | payer MEDICARE, SELFPAY ==
--- NOTE | 2022-12-30 08:16 | CT_ITS ---
FINAL REPORT TECHNIQUE: Thin section axial images were obtained through the abdomen after intravenous contrast. Reconstruction images were obtained from the axial data. Exam was performed using dose reduction techniques. CLINICAL HISTORY: abdominal pain FINDINGS: The lung bases are clear. The liver is homogeneous. The gallbladder is absent. The spleen, adrenal glands, and pancreas are unremarkable. A small left renal cyst is seen. There is bilateral, nonspecific perinephric stranding. There is no hydronephrosis or solid renal mass. Note is made of an Angelchik device. Abdominal GI tract is without acute abnormality. There is no small bowel obstruction. There is no abdominal lymphadenopathy or ascites. There is a very small, fat containing supraumbilical ventral hernia. There is a diverticulum of the posterior right urinary bladder. Prostate is mildly prominent. There is a fat containing left inguinal hernia. The pelvic solid organs are unremarkable. The pelvic portions of the GI tract are without acute abnormality. There is no pelvic lymphadenopathy or ascites. No acute osseous abnormalities identified. IMPRESSION: No CT evidence of acute intra-abdominal or intrapelvic abnormality. Nonspecific, bilateral perinephric stranding. Other chronic findings as above. Reviewed, Interpreted and Dictated by Nilam العلي MD Transcribed by Kirsty Gonzáles Authenticated and [facility]
[2022-12-30 08:55] LABS: Blood Urea Nitrogen 31 mg/dl (9-20); Estimated Glomerular Filt Rate 33 ml/min (>60); GFR (African American) 40 ML/MIN (>60)
== END ==
LOC: RAD 08:16
PROVIDERS: PCP Nurse Practitioner Family; Visit Provider Surgery
DX: R10.9 Unspecified abdominal pain (principal)
CPT/HCPCS: 36415; 74177; 82565; 84520; Q9967

== ENCOUNTER → 2023-04-10 13:31 | Outpatient (POV) | payer MEDICARE, SELFPAY | PROVIDERS: Visit Provider Specialist/Technologist | DX: Z00.00 Encounter for general adult medical examination without abnormal findings (principal) ==

== ENCOUNTER → 2023-05-08 14:58 | Outpatient (CLI) | payer MEDICARE, SELFPAY ==
--- NOTE | 2023-05-08 15:06 | XR_ITS ---
FINAL REPORT CLINICAL HISTORY: RIGHT HIP PAIN FINDINGS: Right hip Three views were obtained. There is no acute fracture or dislocation. There are mild degenerative changes. Vascular calcification is noted. There are postoperative changes in the region of the prostate. IMPRESSION: Mild degenerative changes. Reviewed, Interpreted and Dictated by Brenton Barahona III, MD Transcribed by Cristina Gandara Authenticated and [facility]
== END ==
LOC: RAD 15:01
PROVIDERS: PCP Nurse Practitioner Family; Visit Provider Nurse Practitioner Family
DX: M25.551 Pain in right hip (principal)
CPT/HCPCS: 73502

== ENCOUNTER → 2023-05-30 10:13 | Outpatient (CLI) | payer MEDICARE, SELFPAY | PROVIDERS: PCP Nurse Practitioner Family; Visit Provider Nurse Practitioner Family | DX: M25.551 Pain in right hip (principal) ==

== ENCOUNTER 2023-06-10 17:20 | Emergency (ER) | payer MEDICARE, SELFPAY ==
[2023-06-10 17:18] VITALS: BP 135/87; PULSE 96; RESP 18; TEMP 36.7; O2SAT 97; BMI 27.6
--- NOTE | 2023-06-10 17:32 | PC.NURSE ---
Dr. Duckworth at [facility]
--- NOTE | 2023-06-10 17:47 | HMH.EDGENADL ---
Discharge Plan Disposition Patient Disposition: Home, Self-Care Condition: Good Chief Complaint: Wound/Laceration Prescriptions Prescriptions: No Action vitamin B complex [B Complex-Vitamin B12] Tablet 1 tab PO DAILY hydralazine 100 mg tablet 100 mg PO TID Qty: 90 3RF metoprolol succinate 50 mg tablet extended release 24 hr 50 mg PO DAILY Qty: 90 3RF omeprazole 40 mg capsule,delayed release(DR/EC) 40 mg PO DAILY Patient Comments: TAKE 1 CAPSULE BY MOUTH 30 MINUTES BEFORE BREAKFAST DAILY levothyroxine 75 mcg tablet 75 mcg PO DAILY Patient Comments: TAKE 1 TABLET BY MOUTH ONCE DAILY IN THE MORNING ON AN EMPTY STOMACH insulin glargine [Basaglar KwikPen U-100 Insulin] 100 unit/mL (3 mL) insulin pen 15 unit SQ DAILY Xarelto 15 mg tablet 15 mg PO DAILY Rx Instructions: must administer with evening meal metformin 500 mg tablet extended release 24 hr 1,000 mg PO Patient Comments: TAKE 1 TABLET BY MOUTH ONCE DAILY WITH EVENING MEAL atorvastatin 40 MG tablet 40 mg PO DAILY tamsulosin 0.4 MG capsule 0.4 mg PO HS Referrals Follow up/Referrals: Marielos Amaral APRN [Primary Care Provider] - See instructions Clinical Impressions Clinical Impression: Laceration of lip Instructions Patient Instructions: DI for Laceration Repair, DI for Wound Infection Discharge ED Provider: Karlos Duckworth General Adult HPI General Chief complaint: Wound/Laceration Stated complaint: fall Time Seen by Provider: 06/10/23 17:21 Mode of Arrival: EMS Source of Information: Patient Limitations: No Limitations Description of Symptoms (Recalled from ER Triage Doc. by RN): Patient reports leaving [facility] when he stumbled and fell causing a laceration to his lip. Denies LOC and has no other complaints at this time. History of Present Illness HPI narrative: Patient has a PMHx significant for CVA, CAD status post PCI x3, CABG x4 vessels on Xarelto who presents to the ED with complaints of lip laceration. Patient notes that he was walking out of [facility] when he stumbled and started to trip forwards. Patient notes that he attempted to stumble his way to a car to brace himself, but ended up falling to the ground. Patient notes that he sustained a laceration to his lip, but did not have any direct head trauma to the ground, negative LOC. Patient has no acute complaints at this time, no chest pain, no head neck pain, no pain anywhere. Related Data Home Medications Medication Instructions Recorded Confirmed atorvastatin 40 mg tablet 40 mg PO DAILY Cholesterol 12/03/18 02/24/23 tamsulosin 0.4 mg capsule 0.4 mg PO HS bladder 12/03/18 02/24/23 insulin glargine 100 unit/mL (3 15 unit SQ DAILY Diabetes 08/14/22 02/24/23 mL) subcutaneous pen (Basaglar KwikPen U-100 Insulin) levothyroxine 75 mcg tablet 75 mcg PO DAILY thyroid 08/14/22 02/24/23 omeprazole 40 mg capsule,delayed 40 mg PO DAILY stomach 08/14/22 02/24/23 release rivaroxaban 15 mg tablet (Xarelto) 15 mg PO DAILY 10/02/22 02/24/23 vitamin B complex (B 1 tab PO DAILY 11/26/22 02/24/23 Complex-Vitamin B12 tablet) metformin 500 mg tablet,extended 1,000 mg PO 02/24/23 02/24/23 release 24 hr Previous Rx's Medication Instructions Recorded hydralazine 100 mg tablet 100 mg PO TID #90 tabs 11/26/22 metoprolol succinate 50 mg 50 mg PO DAILY Heart disease #90 02/24/23 tablet,extended release 24 hr tabs Allergies Allergy/AdvReac Type Severity Reaction Status Date / Time amoxicillin Allergy Rash Verified 02/24/23 13:58 Penicillins Allergy Rash Verified 02/24/23 13:58 [facility] Disclaimer: The information contained in this section may have been updated after the patient was seen, as this information can be updated by other users. Medical History CKD stage 4 due to type 2 diabetes mellitus Coronary artery disease PAF (paro
[2023-06-10 17:52] VITALS: BP 160/90; PULSE 92; RESP 20; TEMP 36.7; O2SAT 98
== END 2023-06-10 17:57 | disposition home or self-care (01) ==
PROVIDERS: Emergency Provider Emergency Medicine; PCP Nurse Practitioner Family
DX: S01.511A Laceration without foreign body of lip, initial encounter (principal); I25.118 Atherosclerotic heart disease of native coronary artery with other forms of angina pectoris; I48.0 Paroxysmal atrial fibrillation; E11.22 Type 2 diabetes mellitus with diabetic chronic kidney disease; N18.4 Chronic kidney disease, stage 4 (severe); Z86.73 Personal history of transient ischemic attack (TIA), and cerebral infarction without residual deficits; Z87.891 Personal history of nicotine dependence; Z79.01 Long term (current) use of anticoagulants; W01.0XXA Fall on same level from slipping, tripping and stumbling without subsequent striking against object, initial encounter
CPT/HCPCS: 99282

== ENCOUNTER → 2023-06-16 10:16 | Outpatient (CLI) | payer MEDICARE, SELFPAY ==
--- NOTE | 2023-06-16 10:25 | XR_ITS ---
FINAL REPORT CLINICAL HISTORY: left elbow pain, swelling from fall COMPARISON: None FINDINGS: AP, oblique, and lateral views of the right elbow were obtained. There is no prior exam for comparison. There is a nondisplaced intercondylar fracture identified with associated soft tissue swelling. There is a mild effusion and/or hemarthrosis. Mild degenerative change is identified. Joint space is preserved. IMPRESSION: Nondisplaced intracondylar fracture of the right elbow with associated effusion and/or hemarthrosis. Reviewed, Interpreted and Dictated by Brenton Barahona III, MD Transcribed by Evita Fitzpatrick Authenticated and [facility]
== END ==
LOC: RAD 10:18
PROVIDERS: PCP Nurse Practitioner Family; Visit Provider Nurse Practitioner Family
DX: M25.522 Pain in left elbow (principal); S59.902A Unspecified injury of left elbow, initial encounter; W19.XXXA Unspecified fall, initial encounter; R30.0 Dysuria; B96.1 Klebsiella pneumoniae [K. pneumoniae] as the cause of diseases classified elsewhere
CPT/HCPCS: 73080; 87086; 87088; 87186

== ENCOUNTER → 2023-06-16 12:00 | Outpatient (CLI) | payer MEDICARE, SELFPAY | PROVIDERS: PCP Nurse Practitioner Family; Visit Provider Nurse Practitioner Family | DX: M25.551 Pain in right hip (principal) ==

== ENCOUNTER → 2023-06-26 14:36 | Outpatient (CLI) | payer MEDICARE, SELFPAY ==
--- NOTE | 2023-06-26 15:10 | MR_ITS ---
PROCEDURE INFORMATION: Exam: MR Right Lower Extremity Joint Without Contrast; Hip Exam date and time: 06/26/2023 4:08 PM Age: 72 years old Clinical indication: Pain; Hip; Right; Additional info: Right hip pain TECHNIQUE: Imaging protocol: Magnetic resonance imaging of the right lower extremity joint without contrast. Exam focused on the hip. COMPARISON: 1. CR XR HIP RT 2-3V W/PELVIS 05/08/2023 3:[address] ABDOMEN PELVIS W CON 12/30/2022 9:55 AM FINDINGS: Bones/joints: There is mild joint space narrowing present bilaterally in the hips. Labrum: No displaced labral tear visible. Bursae: Mild trochanteric bursitis. TENDONS: Tendons of iliopsoas group: Unremarkable. No evidence of tear. Tendons of medial compartment of thigh: Unremarkable. No evidence of tear. Tendons of lateral rotators of hip: Unremarkable. No evidence of tear. Tendons of gluteal group: Insertional tendinosis of gluteus minimus and medius. Partial-thickness gluteus minimus tearing. Soft tissues: There is a moderate left fat containing inguinal hernia present which is unchanged. Bladder: There is a right-sided bladder diverticulum measuring 2.7 cm superiorly which is unchanged. The bladder wall is mildly thickened. Reproductive: The prostate gland is enlarged with foci of susceptibility which may be therapy beads. IMPRESSION: 1. 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 2. Trochanteric bursitis with gluteus minimus and medius insertional tendinosis. Partial-thickness gluteus minimus tear. 3. Thickened bladder. Correlate for cystitis.
--- NOTE | 2023-06-26 16:05 | XR_ITS ---
FINAL REPORT CLINICAL HISTORY: RULE OUT METALLIC FOREIGN BODY FOR MRI COMPARISON: None FINDINGS: ORBITS Look up and look down views were obtained. No fracture is identified. The sinuses are clear. No foreign body is identified. IMPRESSION: No acute process. No foreign body identified. Reviewed, Interpreted and Dictated by Duran Macias MD Transcribed by Veronica Wilder Authenticated and [facility]
== END ==
LOC: RAD 14:38
PROVIDERS: PCP Nurse Practitioner Family; Visit Provider Nurse Practitioner Family
DX: M25.551 Pain in right hip (principal); H05.53 Retained (old) foreign body following penetrating wound of bilateral orbits
CPT/HCPCS: 70200; 73721

== ENCOUNTER → 2023-07-30 14:16 | Outpatient (CLI) | payer MEDICARE, SELFPAY | PROVIDERS: PCP Nurse Practitioner Family; Visit Provider Nurse Practitioner Family | DX: R30.9 Painful micturition, unspecified (principal) | CPT/HCPCS: 87086 ==

== ENCOUNTER 2023-08-14 11:00 | Outpatient (RCR) | payer MEDICARE, SELFPAY ==
--- NOTE | 2023-07-04 09:10 | HMH.PTOPEV ---
PT Outpatient Evaluation Rehab PT Outpatient Evaluation Start: 07/04/23 08:21 Freq: Status: Active Protocol: Document 07/04/23 08:21 MARIZA (Rec: 07/04/23 09:09 MARIZA [id number]) E-signed By Rg Hilario, PT Outpatient Therapy Subjective History Subjective History Pt reports h/o chronic right hip pain for ~2 years, and recent MRI has revealed glueus minimus mm tear. Pt reports localized posterio-lateral glut mm pain on right, and reports increased s/s w/ walking and standing. PMH:CVA, current left elbow fx w/cast New diagnosis of cancer in past 12 No months? Chief Complaint Pain,Stiff,Weakness Symptom Type Ache,Dull Symptoms Relieved By Rest/Positioning,Heat Symptoms Aggravated By Standing,Twisting Prior Functional Limitations Housework,Standing,Walking, Balance Current Functional Limitations Housework,Standing,Walking, Balance Symptom Description Constant but Variable Level of pain today (0-10) 2 Pain scale - at its best (0-10) 2 Pain scale - at its worst (0-10) 4 Hip/Knee Eval Gait Observation General Gait Pattern Observation Antalgic Gait,Wide Based Gait Assistive Device Assistive Devices Straight Cane Palpation Tenderness right Knee Palpation Overall Comment 3/4 glut med,max,min Hip Palpation Findings Tenderness MMT Hip Flexion Strength Grade 4 Good Hip Abduction Strength Grade 4- Good- Hip Adduction Strength Grade 4 Good Hip Extension Strength Grade 4- Good- Gluteus Harish Strength Grade 4- Good- Hip External Rotation Strength Grade 4- Good- Hip Internal Rotation Strength Grade 4- Good- Knee Extension Strength Grade 5 Normal Knee Flexion Strength Grade 5 Normal ROM Hip Flexion w/Knee Flexed Passive Range 0-90 of Motion (degrees) Hip Flexion w/Knee Extended Passive 0-40 Range of Motion (degrees) Hip External Rotation Passive Range of 0-30 Motion (degrees) Hip Internal Rotation Passive Range of 0-25 Motion (degrees) Lower Extremity Functional Index Activities Today, do you or would you have any difficulty at all with: a.Any of your usual work, housework or Moderate difficulty school activities b. Your usual hobbies, recreational or Moderate difficulty sporting activities c. Getting into or out of the bath Quite a bit of difficulty d. Walking between rooms Moderate difficulty e. Putting on your shoes or socks No difficulty f. Squatting Moderate difficulty g. Lifting an object, like a bag of A little bit of difficulty groceries from the floor h. Performing light activities around A little bit of difficulty your home i. Performing heavy activities around Quite a bit of difficulty your home j. Getting into or out of a car No difficulty k. Walking 2 blocks A little bit of difficulty l. Walking a mile Extreme difficulty or unable to perform activity m. Going up or down 10 stairs (about 1 Quite a bit of difficulty flight of stairs) n. Standing for 1 hour Extreme difficulty or unable to perform activity o. Sitting for 1 hour No difficulty p. Running on even ground Extreme difficulty or unable to perform activity q. Running on uneven ground Extreme difficulty or unable to perform activity r. Making sharp turns while running fast Extreme difficulty or unable to perform activity s. Hopping Extreme difficulty or unable to perform activity t. Rolling over in bed No difficulty LEFI Score Lower Extremity Functional Index Score 36 Outpatient Therapy Assessment Impairments Problems/Impairmments Palpation Tenderness,Impaired Range of Motion,Impaired Strength,Impaired Gait Pattern ,Impaired Walking,Impaired Standing,Impaired Household Care,Impaired Balance, Subjective C/O Pain,Impaired Self Care/Self Management Prognosis Rehab Potential Good Clinical Impression Consistent with Diagnosis Yes Short Term Goals Number of Weeks 4 Decreased Palpation Tenderness Yes: 1-2/4 right hip mm Increase Range of Motion Yes: 50-75% of WFL RIGHT HIP AROM Increase Strength Yes: 4/5 RIGHT LE Increase Ability to Walk Yes: 30MIN Increase Ability to Stand Yes: 30MIN Improve Ability For Household Care Yes: 30MIN Decrease Subjective C/O Pain Yes: 2/10 W/ABOVE ACTIVITIES Patient to be Ind w/ HEP Yes Longterm Goals Number of Weeks 6-8 Decreased Palpation Tenderness Yes: 0-1/4 RIGHT HIP MM Increase Range of Motion Yes: WFL RIGHT HIP AROM Increase Strength Yes: 4+-5/5 RIGHT LE Improve Gait Pattern without Assistive Yes: WFL ON LEVEL TERRAIN Device Increase Ability to Walk Yes: 60MIN Increase Ability to Stand 60MIN Improve Ability For Household Care Yes: 60MIN Decrease Subjective C/O Pain Yes: 0-1/10 W/ABOVE ACTIVITIES Patient to be Ind w/ Advanced HEP Yes Outpatient Therapy Plan of Care Treatment Plan May Include Therapeutic Exercise Including Home Yes Exercise Program Manual Therapy Techniques Yes Neuromuscular Re-education Yes Therapeutic Activities to Return to Yes Previous Functional/Work Level Gait Training Yes ADL/Self Care Education Yes Dry Needling Yes Thermal Modalities Yes Electrical Stimulation Yes Ultrasound/Phonophoresis Yes Iontophoresis Yes Orthotics/Bracing/Splinting Yes Vasopneumatic Compression Pump Yes Eval/Re-Eval Yes Frequency Times per week 2-3 Duration Number of Weeks 6-8 Addendums This patient is a candidate for social No or vocational rehab? Patient/Guardian verbally acknowledges Yes understanding of treatment program and consents to further treatment? Patient/Guardian verbally acknowledges Yes understanding of diagnosis, prognosis and goals for treatment? Eval Complexity PT Charges 26398 - Low Complexity Shoulder/Elbow Eval Shoulder Objective Measurements Elbow Objective Measurements PHYSICIAN CERTIFICATION: I certify the specified therapy services for Zackary Carrasco are required, authorized, and reviewed every 30 days.
--- NOTE | 2023-08-05 08:36 | HMH.RHREAS ---
Rehab Reassessment Rehab OP Re-assessment Start: 07/04/23 08:21 Freq: Status: Active Protocol: Document 08/05/23 07:58 TORRIELEYDI (Rec: 08/05/23 08:35 MARIZA [id number]) E-signed By Rg Hilario, PT Lower Extremity Functional Index Activities Today, do you or would you have any difficulty at all with: a.Any of your usual work, housework or Moderate difficulty school activities b. Your usual hobbies, recreational or Moderate difficulty sporting activities c. Getting into or out of the bath No difficulty d. Walking between rooms No difficulty e. Putting on your shoes or socks A little bit of difficulty f. Squatting Moderate difficulty g. Lifting an object, like a bag of Moderate difficulty groceries from the floor h. Performing light activities around Moderate difficulty your home i. Performing heavy activities around Moderate difficulty your home j. Getting into or out of a car No difficulty k. Walking 2 blocks A little bit of difficulty l. Walking a mile Moderate difficulty m. Going up or down 10 stairs (about 1 A little bit of difficulty flight of stairs) n. Standing for 1 hour Moderate difficulty o. Sitting for 1 hour No difficulty p. Running on even ground Moderate difficulty q. Running on uneven ground Quite a bit of difficulty r. Making sharp turns while running fast Quite a bit of difficulty s. Hopping Quite a bit of difficulty t. Rolling over in bed No difficulty LEFI Score Lower Extremity Functional Index Score 50 Rehab Re-assessment Subjective Subjective Pt reports 1/10 right hip/glut mm area pain on VAS and reports improved T/F's (sit-to -stand), walking, and standing Objective Objective Notes LEF INDEX 50 VS 36/80 ON IEVAL PROM:RIGHT HIP FLX KNEE EXTD 0 -45,R HIP FLX KNEE FLXD 0-100, R HIP IR 0-35, R HIP ER 0-30 MMT: R HIP FLX 4-4+/5, R HIP IR,ER 4-4+/5, R HIP ABD 4/5, R HIP ADD 4+/5, R HIP EXT 4/5 TTP: R HIP GLUT MAX,MED 2-3/4 Assessment Progress Assessment Progressing as Expected Assessment Notes SIGNIFICANTLY IMPROVED STRENGTH, TTP, ROM, AND LEF INDEX Patient goals met STG'S 04/12 LTG'S 12/12 Goals Not Met STG'S 10/13, LTG'S 03/14 Plan Plan Pt to continue w/skilled P.T. to make further improvements in ROM, strength, and TTP to allow for optimal function Frequency of Therapy 1-2x/wk Duration of therapy 3-5wks Time and Billing Re-Eval Time 12 Re-Eval Billing Units 1 PHYSICIAN CERTIFICATION: I certify the specified therapy services for Zackary Carrasco are required, authorized, and reviewed every 30 days.
== END 2023-08-14 12:00 | disposition home or self-care (01) ==
LOC: PT 11:00
PROVIDERS: PCP Nurse Practitioner Family; Visit Provider Nurse Practitioner Family
DX: M25.551 Pain in right hip (principal)
CPT/HCPCS: 20561; 97110; 97112; 97163; 97164; 97530

== ENCOUNTER → 2023-08-19 15:33 | Outpatient (CLI) | payer MEDICARE, SELFPAY | PROVIDERS: PCP Nurse Practitioner Family; Visit Provider Nurse Practitioner Family | DX: N39.0 Urinary tract infection, site not specified (principal); R31.9 Hematuria, unspecified; B96.89 Other specified bacterial agents as the cause of diseases classified elsewhere | CPT/HCPCS: 87086 ==

== ENCOUNTER → 2023-08-27 13:15 | Outpatient (CLI) | payer MEDICARE, SELFPAY ==
[2023-08-27 12:56] LABS: Basophils # 0.1 K/mm3 (0-0.2); Basophils % 0.5 % (0.1-2.0); Eosinophils # 0.2 K/mm3 (0.0-0.4); Hematocrit 42.1 % (42.0-52.0); Lymphocytes # 1.8 K/mm3 (0.7-4.5); Mean Corpuscular HGB Conc 33.1 g/dL (31.8-35.4); Mean Corpuscular Hemoglobin 31.2 pg (27.0-31.2); Mean Corpuscular Volume 94.3 fl (80-94); Mean Platelet Volume 8.1 fl (7.4-10.4); Monocytes # 0.5 K/mm3 (0.1-1.0); Monocytes % 5.4 % (1.7-9.3); Neutrophils % 73.1 % (37.0-80.0); Platelet Count 311 K/mm3 (142-424); Red Blood Count 4.47 M/mm3 (4.60-6.20); Red Cell Distribution Width 14.1 % (11.5-17.5); White Blood Count 9.6 K/mm3 (4.8-10.8)
[2023-08-27 14:06] LABS: Alanine Aminotransferase 32 U/L (12-78); Albumin Level 4.4 g/dl (3.5-5.0); Albumin/Globulin Ratio 1.5 (1.1-1.8); Alkaline Phosphatase 137 U/L (38-126); Anion Gap 14.2 mEq/L (5-15); Aspartate Amino Transferase 30 U/L (17-59); Bilirubin,Total 0.5 mg/dl (0.2-1.3); Blood Urea Nitrogen 25 mg/dl (9-20); Calcium 9.1 mg/dl (8.4-10.2); Carbon Dioxide 24 mmol/L (22.0-30.0); Chloride 99 mmol/L (98-107); Estimated Glomerular Filt Rate 43 ml/min (>60); GFR (African American) 52 ML/MIN (>60); Glucose 274 mg/dl (74-100); Potassium 4.2 mmoL/L (3.5-5.1); Sodium 133 mmol/L (136-145); Total Protein,Serum 7.4 g/dl (6.3-8.2)
== END ==
PROVIDERS: PCP Nurse Practitioner Family; Visit Provider Nurse Practitioner Family
DX: R30.0 Dysuria (principal); R80.9 Proteinuria, unspecified; B96.89 Other specified bacterial agents as the cause of diseases classified elsewhere; Z79.899 Other long term (current) drug therapy
CPT/HCPCS: 80053; 85025; 87086

== ENCOUNTER → 2023-09-19 23:10 | Outpatient (CLI) | payer MEDICARE, SELFPAY ==
[2023-09-19 17:27] LABS: Basophils # 0.1 K/mm3 (0-0.2); Basophils % 0.7 % (0.1-2.0); Eosinophils # 0.1 K/mm3 (0.0-0.4); Eosinophils % 1.3 % (0.1-12.0); Hematocrit 44.3 % (42.0-52.0); Hemoglobin 14.9 g/dL (14.1-18.0); Lymphocytes # 1.7 K/mm3 (0.7-4.5); Lymphocytes % 23.2 % (10-50); Mean Corpuscular HGB Conc 33.7 g/dL (31.8-35.4); Mean Corpuscular Hemoglobin 31.5 pg (27.0-31.2); Mean Corpuscular Volume 93.4 fl (80-94); Mean Platelet Volume 9.5 fl (7.4-10.4); Monocytes # 0.5 K/mm3 (0.1-1.0); Monocytes % 7.3 % (1.7-9.3); Neutrophils # 4.9 K/mm3 (1.8-7.8); Neutrophils % 67.6 % (37.0-80.0); Platelet Count 335 K/mm3 (142-424); Red Blood Count 4.74 M/mm3 (4.60-6.20); Red Cell Distribution Width 13.7 % (11.5-17.5); White Blood Count 7.3 K/mm3 (4.8-10.8)
[2023-09-19 17:45] LABS: Alanine Aminotransferase 27 U/L (12-78); Albumin Level 5.1 g/dl (3.5-5.0); Albumin/Globulin Ratio 1.4 (1.1-1.8); Alkaline Phosphatase 91 U/L (38-126); Anion Gap 18.2 mEq/L (5-15); Aspartate Amino Transferase 29 U/L (17-59); Bilirubin,Total 0.7 mg/dl (0.2-1.3); Blood Urea Nitrogen 28 mg/dl (9-20); Calcium 9.4 mg/dl (8.4-10.2); Carbon Dioxide 22 mmol/L (22.0-30.0); Chloride 98 mmol/L (98-107); Estimated Glomerular Filt Rate 35 ml/min (>60); GFR (African American) 42 ML/MIN (>60); Globulin 3.6 g/dL (1.3-3.2); Glucose 169 mg/dl (74-100); Potassium 5.2 mmoL/L (3.5-5.1); Sodium 133 mmol/L (136-145); Total Protein,Serum 8.7 g/dl (6.3-8.2)
[2023-09-23 16:18] LABS: Microscopic, Urine URINE MICROSCOPIC (MICROSCOPIC)
[2023-09-23 16:23] LABS: Appearance,Urine CLEAR (Clear); Bilirubin,Urine Negative (Negative); Blood, Urine Negative (Negative); Color,Urine YELLOW (Yellow); Glucose,Urine (UA) Negative (Negative); Ketones,Urine Negative (Negative); Leukocyte Esterase,Urine Negative (Negative); Nitrate,Urine Negative (Negative); PH,Urine 5.5 (5.0-8.5); Protein,Urine TRACE (Negative); Urobilinogen,Urine 0.2 EU/dl (0.2)
[2023-09-23 16:32] LABS: Squamous Epithelial Cell,Urine Occasional #/hpf (0-5); WBC,Urine Occasional #/hpf (0-3)
== END ==
PROVIDERS: PCP Nurse Practitioner Family; Visit Provider Nurse Practitioner Family
DX: E11.22 Type 2 diabetes mellitus with diabetic chronic kidney disease (principal); N18.4 Chronic kidney disease, stage 4 (severe); R30.0 Dysuria; R80.9 Proteinuria, unspecified; Z79.4 Long term (current) use of insulin; Z79.84 Long term (current) use of oral hypoglycemic drugs
CPT/HCPCS: 80053; 81001; 85025

== ENCOUNTER → 2023-10-03 13:31 | Outpatient (CLI) | payer MEDICARE, SELFPAY ==
--- NOTE | 2023-10-03 13:31 | CT_ITS ---
FINAL REPORT TECHNIQUE: Axial CT images were performed from the lung bases through the pubic symphysis. Coronal reformats were submitted and reviewed. This study was performed with techniques to keep radiation doses as low as reasonably achievable (ALARA). Individualized dose reduction techniques using automated exposure control or adjustment of mA and/or kV according to the patient's size were employed. CLINICAL HISTORY: right flank pain, dysuria COMPARISON: 12/30/2022 FINDINGS: Abdomen: The heart size is normal. There are vascular calcifications. Lung bases are clear. There is no pleural or pericardial effusion. The patient is status postcholecystectomy and lap band procedure. The liver parenchyma is homogeneous. The spleen is unremarkable. There are no adrenal masses. There is an air collection between the head of the pancreas and the second portion of the duodenum consistent with a duodenal diverticulum. This appears stable compared to the prior exam. There is no nephrolithiasis. There is no hydronephrosis. Bilateral perirenal stranding is stable compared to the prior exam. Pelvis: There has been interval placement of prostatic seeds. The prostate is normal in size. No inflammation is seen around the prostate. Seminal vesicles are unremarkable. There is a diverticulum in the posterior right urinary bladder which appears stable. The appendix is not visualized but there are no secondary signs of appendicitis. There is diverticulosis. There is mild wall thickening of the proximal ascending colon which is nonspecific and may represent colitis. IMPRESSION: No nephrolithiasis or hydronephrosis. Possible proximal ascending colitis. Diverticulosis. Reviewed, Interpreted and Dictated by Carmencita Barajas MD Transcribed by China Shahid Authenticated and [facility]
== END ==
LOC: RAD 13:31
PROVIDERS: PCP Nurse Practitioner Family; Visit Provider Nurse Practitioner Family
DX: R10.9 Unspecified abdominal pain (principal); R30.0 Dysuria; R80.9 Proteinuria, unspecified
CPT/HCPCS: 74176

== ENCOUNTER 2024-08-23 16:35 | Outpatient (CLI) | payer MEDICARE, SELFPAY ==
[2024-08-23 16:53] LABS: Basophils # 0.1 K/mm3 (0-0.2); Basophils % 0.7 % (0.1-2.0); Eosinophils # 0.3 K/mm3 (0.0-0.4); Eosinophils % 2.8 % (0.1-12.0); Hematocrit 40.8 % (42.0-52.0); Hemoglobin 14.3 g/dL (14.1-18.0); Lymphocytes # 1.4 K/mm3 (0.7-4.5); Lymphocytes % 15.2 % (10-50); Mean Corpuscular Hemoglobin 30.4 pg (27.0-31.2); Mean Platelet Volume 8.7 fl (7.4-10.4); Monocytes # 0.6 K/mm3 (0.1-1.0); Monocytes % 6.1 % (1.7-9.3); Neutrophils # 6.8 K/mm3 (1.8-7.8); Neutrophils % 75.2 % (37.0-80.0); Platelet Count 276 K/mm3 (142-424); Red Blood Count 4.69 M/mm3 (4.60-6.20); Red Cell Distribution Width 14.1 % (11.5-17.5)
[2024-08-23 17:23] LABS: Chloride 99 mmol/L (98-107)
[2024-08-23 17:24] LABS: Albumin Level 4.4 g/dl (3.5-5.0); Potassium 4.1 mmoL/L (3.5-5.1); Sodium 134 mmol/L (136-145)
[2024-08-23 17:26] LABS: Alanine Aminotransferase 33 U/L (12-78); Anion Gap 17.1 mEq/L (5-15); Aspartate Amino Transferase 31 U/L (17-59); Blood Urea Nitrogen 26 mg/dl (9-20); Carbon Dioxide 22 mmol/L (22.0-30.0); Estimated Glomerular Filt Rate 46 ml/min (>60); GFR (African American) 56 ML/MIN (>60)
[2024-08-23 17:27] LABS: Albumin/Globulin Ratio 1.5 (1.1-1.8); Alkaline Phosphatase 92 U/L (38-126); Calcium 9.6 mg/dl (8.4-10.2); Chol/HDL Ratio 3.4 (1-3.5); Cholesterol 161 mg/dl (140-200); Globulin 2.9 g/dL (1.3-3.2); Glucose 259 mg/dl (74-100); HDL Cholesterol 48 mg/dl (40-60); Total Protein,Serum 7.3 g/dl (6.3-8.2); Triglycerides 134 mg/dl (30-150); VLDL Cholesterol 27 mg/dL (0-40)
[2024-08-23 17:38] LABS: Direct LDL Cholesterol 85.92 mg/dL (100-129)
[2024-08-23 17:57] LABS: Thyroid Stimulating Hormone 4.11 uIU/mL (0.465-4.68)
[2024-08-23 18:18] LABS: Creatinine,Urine Random 38 mg/dL (Not Estab.)
[2024-08-23 19:10] LABS: Hemoglobin A1C 10.1 % (4.0-6.0)
[2024-08-23 22:50] LABS: Prostate Specific Ag Screen 3.1 ng/ml (0.0-4.0)
[2024-08-23 23:33] LABS: HIV (1&2) Antibody Rapid NONREACTIVE (NONREACTIVE)
[2024-08-24 08:21] LABS: HCV Ab Non Reactive (Non Reactive)
== END 2024-08-23 23:59 | disposition home or self-care (01) ==
LOC: LAB.DROPOF 16:35
PROVIDERS: PCP Nurse Practitioner Family; Visit Provider Nurse Practitioner Family
DX: Z12.5 Encounter for screening for malignant neoplasm of prostate (principal); E11.9 Type 2 diabetes mellitus without complications; A49.9 Bacterial infection, unspecified; N39.0 Urinary tract infection, site not specified; I48.0 Paroxysmal atrial fibrillation; Z11.4 Encounter for screening for human immunodeficiency virus [HIV]; E11.22 Type 2 diabetes mellitus with diabetic chronic kidney disease; N18.4 Chronic kidney disease, stage 4 (severe); Z11.59 Encounter for screening for other viral diseases
CPT/HCPCS: 80053; 80061; 82043; 82570; 83036; 84443; 85025; 86803; 87086; 87389; G0103

== ENCOUNTER 2024-12-08 16:48 | Outpatient (CLI) | payer MEDICARE, SELFPAY ==
[2024-12-08 12:23] LABS: Microscopic, Urine URINE MICROSCOPIC (MICROSCOPIC)
[2024-12-08 13:58] LABS: Free T4 (Free Thyroxine) 0.85 ng/dl (0.78-2.19)
[2024-12-08 14:47] LABS: Alanine Aminotransferase 36 U/L (12-78); Albumin Level 4.3 g/dl (3.5-5.0); Albumin/Globulin Ratio 1.4 (1.1-1.8); Alkaline Phosphatase 106 U/L (38-126); Anion Gap 13.3 mEq/L (5-15); Aspartate Amino Transferase 25 U/L (17-59); Bilirubin,Total 0.9 mg/dl (0.2-1.3); Blood Urea Nitrogen 35 mg/dl (9-20); Calcium 9.2 mg/dl (8.4-10.2); Carbon Dioxide 21 mmol/L (22.0-30.0); Chloride 102 mmol/L (98-107); Estimated Glomerular Filt Rate 35 ml/min (>60); GFR (African American) 42 ML/MIN (>60); Globulin 3.1 g/dL (1.3-3.2); Glucose 248 mg/dl (74-100); Potassium 4.3 mmoL/L (3.5-5.1); Sodium 132 mmol/L (136-145); Total Protein,Serum 7.4 g/dl (6.3-8.2)
[2024-12-08 14:59] LABS: Creatinine,Urine Random 86 mg/dL (Not Estab.)
[2024-12-08 15:01] LABS: Hemoglobin A1C 9.2 % (4.0-6.0)
[2024-12-08 15:38] LABS: Vitamin B12 289 pg/mL (239-931)
[2024-12-08 15:44] LABS: Bilirubin,Urine Negative (Negative); Blood, Urine 1+ (Negative); Color,Urine YELLOW (Yellow); Glucose,Urine (UA) 2+ (Negative); Ketones,Urine Negative (Negative); Leukocyte Esterase,Urine TRACE (Negative); Nitrate,Urine Negative (Negative); Protein,Urine 2+ (Negative); Specific Gravity, Urine 1.025 (1.005-1.030); Urobilinogen,Urine 0.2 EU/dl (0.2)
[2024-12-08 15:53] LABS: Appearance,Urine Slightly Cloudy (Clear)
[2024-12-09 00:28] LABS: WBC,Urine 20-50 #/hpf (0-3)
[2024-12-09 00:29] LABS: Bacteria,Urine 1+ /lpf; Yeast,Urine 1+ /lpf
[2024-12-09 12:12] LABS: Triiodothyronine (T3) Free 2.4 pg/mL (2.0-4.4)
== END 2024-12-08 23:59 | disposition home or self-care (01) ==
LOC: LAB.DROPOF 16:48
PROVIDERS: PCP Nurse Practitioner Family; Visit Provider Nurse Practitioner Family
DX: E03.9 Hypothyroidism, unspecified (principal); R30.9 Painful micturition, unspecified; E11.22 Type 2 diabetes mellitus with diabetic chronic kidney disease; N18.4 Chronic kidney disease, stage 4 (severe); E53.8 Deficiency of other specified B group vitamins; Z79.4 Long term (current) use of insulin
CPT/HCPCS: 80053; 81001; 82043; 82570; 82607; 83036; 84439; 84443; 84481; 87086

== ENCOUNTER 2024-12-22 15:05 | Outpatient (CLI) | payer MEDICARE, SELFPAY ==
[2024-12-22 15:56] LABS: Basophils % 0.4 % (0.1-2.0); Eosinophils # 0.1 K/mm3 (0.0-0.4); Eosinophils % 0.8 % (0.1-12.0); Hematocrit 42.3 % (42.0-52.0); Hemoglobin 13.9 g/dL (14.1-18.0); Mean Corpuscular HGB Conc 32.9 g/dL (31.8-35.4); Mean Corpuscular Volume 88.1 fl (80-94); Mean Platelet Volume 10.2 fl (7.4-10.4); Monocytes # 0.8 K/mm3 (0.1-1.0); Monocytes % 7.7 % (1.7-9.3); Neutrophils # 8.4 K/mm3 (1.8-7.8); Neutrophils % 80.6 % (37.0-80.0); Platelet Count 309 K/mm3 (142-424); White Blood Count 10.4 K/mm3 (4.8-10.8)
[2024-12-22 16:11] LABS: Chloride 97 mmol/L (98-107)
[2024-12-22 16:12] LABS: Potassium 3.7 mmoL/L (3.5-5.1); Sodium 133 mmol/L (136-145)
[2024-12-22 16:15] LABS: Anion Gap 16.7 mEq/L (5-15); Blood Urea Nitrogen 30 mg/dl (9-20); Calcium 9.7 mg/dl (8.4-10.2); Carbon Dioxide 23 mmol/L (22.0-30.0); Estimated Glomerular Filt Rate 25 ml/min (>60); GFR (African American) 31 ML/MIN (>60)
[2024-12-22 16:19] LABS: Glucose 428 mg/dl (74-100)
[2024-12-22 16:30] LABS: Free T4 (Free Thyroxine) 1.31 ng/dl (0.78-2.19)
[2024-12-22 16:45] LABS: Thyroid Stimulating Hormone 5.19 uIU/mL (0.465-4.68)
== END 2024-12-22 23:59 | disposition home or self-care (01) ==
LOC: RT 15:06
PROVIDERS: PCP Nurse Practitioner Family; Visit Provider Nurse Practitioner
DX: R00.0 Tachycardia, unspecified (principal); R06.09 Other forms of dyspnea; E03.9 Hypothyroidism, unspecified; E11.9 Type 2 diabetes mellitus without complications; R94.39 Abnormal result of other cardiovascular function study; I48.0 Paroxysmal atrial fibrillation; I25.708 Atherosclerosis of coronary artery bypass graft(s), unspecified, with other forms of angina pectoris; Z95.1 Presence of aortocoronary bypass graft
CPT/HCPCS: 36415; 80048; 84439; 84443; 85025; 85378; 93270

== ENCOUNTER 2024-12-22 17:12 | Inpatient (IN) | payer MEDICARE, SELFPAY ==
[2024-12-22] VITALS (8 sets, daily range): BP systolic 146–156; BP diastolic 85–116; PULSE 97–111; RESP 15–20; TEMP 36.4–37.2; O2SAT 96–100; BMI 27.0; BMI 26.1
--- NOTE | 2024-12-22 17:40 | CT_ITS ---
PROCEDURE INFORMATION: Exam: CTA Chest With Contrast Exam date and time: 12/22/2024 6:02 PM Age: 74 years old Clinical indication: Abnormal findings; Abnormal diagnostic tests; Elevated d-dimer; Additional info: Elevated dimer, tachy TECHNIQUE: Imaging protocol: Computed tomographic angiography of the chest with contrast. Exam focused on the arteries. 3D rendering (Not supervised by radiologist): MIP and/or 3D reconstructed images were created by the technologist. Radiation optimization: All CT scans at this facility use at least one of these dose optimization techniques: automated exposure control; mA and/or kV adjustment per patient size (includes targeted exams where dose is matched to clinical indication); or iterative reconstruction. Contrast material: ISOVUE; Contrast volume: 70 ml; Contrast route: INTRAVENOUS (IV); COMPARISON: CT HIGH RESOLUTION CHEST 23/08/2022 09:36 FINDINGS: Pulmonary arteries: No pulmonary emboli. Aorta: The aorta demonstrates severe atherosclerotic disease. Celiac trunk and mesenteric arteries: [id number] stenosis of the proximal SMA. Lungs: Mild interlobular septal thickening in the mid to lower lungs may represent mild pulmonary venous congestion. Pleural spaces: Small pleural effusions. Heart: Unremarkable. No cardiomegaly. No pericardial effusion. Lymph nodes: Unremarkable. No enlarged lymph nodes. Liver: Nonspecific periportal edema. Gallbladder and biliary ducts: Gallbladder is absent. Pancreas: [id number] pancreatic atrophy. Kidneys: Low attenuation renal lesions measuring up to 13 mm in diameter are incompletely characterized, but are likely cysts. No followup imaging is warranted. Nonobstructing right renal calcification could be a calculus. Stomach: Gastric band is noted. There is edema around the gastric antrum of indeterminate significance. Bones/joints: Status post median sternotomy and coronary artery bypass. Soft tissues: Unremarkable. IMPRESSION: 1. No pulmonary emboli. 2. Mild interlobular septal thickening in the mid to lower lungs may represent mild pulmonary venous congestion. 3. There is edema around the gastric antrum of indeterminate significance. Please correlate for evidence of gastritis and possible ulcer disease. 4. Nonspecific periportal edema. Please exclude acute hepatitis clinically. 5. Small pleural effusions. COMMENTS: Consistent with the [employer]'s Incidental Findings Committee white paper (J Am Sohail Radiol 2018): Any incidental renal lesion less than 1 cm or classified as too small to characterize, or any incidental cystic renal lesion characterized as simple-appearing, is likely benign. No follow-up imaging is recommended for these lesions per consensus recommendations based on imaging criteria.
[2024-12-22 17:57] LABS: Basophils % 0.3 % (0.1-2.0); Eosinophils # 0.1 K/mm3 (0.0-0.4); Eosinophils % 0.9 % (0.1-12.0); Hematocrit 39.5 % (42.0-52.0); Hemoglobin 13.1 g/dL (14.1-18.0); Lymphocytes # 1.3 K/mm3 (0.7-4.5); Lymphocytes % 13.2 % (10-50); Mean Corpuscular HGB Conc 33.2 g/dL (31.8-35.4); Mean Corpuscular Hemoglobin 28.9 pg (27.0-31.2); Mean Platelet Volume 10.1 fl (7.4-10.4); Monocytes # 0.8 K/mm3 (0.1-1.0); Monocytes % 7.9 % (1.7-9.3); Neutrophils # 7.4 K/mm3 (1.8-7.8); Neutrophils % 77.3 % (37.0-80.0); Platelet Count 286 K/mm3 (142-424); Red Blood Count 4.54 M/mm3 (4.60-6.20); Red Cell Distribution Width 15.9 % (11.5-17.5); White Blood Count 9.5 K/mm3 (4.8-10.8)
[2024-12-22 17:59] LABS: VBG Base Excess -4.9 mmol/L (-2.4-2.3); VBG HCO3 20.4 mmol/L (23-30); VBG Oxygen Saturation 79.3 % (50-70); VBG PCO2 36.4 mmol/L (35-51); VBG PH 7.37 mmol/L (7.31-7.41); VBG PO2 47.4 mmol/L (28-40); VBG Total CO2 21.5 mmol/L (23-27)
[2024-12-22 18:00] LABS: Albumin Level 4.9 g/dl (3.5-5.0); Chloride 98 mmol/L (98-107); Potassium 3.6 mmoL/L (3.5-5.1); Sodium 133 mmol/L (136-145)
[2024-12-22 18:01] LABS: Lactate Venous 2.2 mmol/L (0.4-2.0)
[2024-12-22 18:03] LABS: Alanine Aminotransferase 32 U/L (12-78); Albumin/Globulin Ratio 1.4 (1.1-1.8); Alkaline Phosphatase 151 U/L (38-126); Anion Gap 15.6 mEq/L (5-15); Aspartate Amino Transferase 34 U/L (17-59); Bilirubin,Total 0.8 mg/dl (0.2-1.3); Blood Urea Nitrogen 32 mg/dl (9-20); Calcium 9.6 mg/dl (8.4-10.2); Carbon Dioxide 23 mmol/L (22.0-30.0); Creatinine Clearance Estimated 32 mL/min (50-200); Estimated Glomerular Filt Rate 27 ml/min (>60); GFR (African American) 32 ML/MIN (>60); Globulin 3.4 g/dL (1.3-3.2); Glucose 359 mg/dl (74-100); Total Protein,Serum 8.3 g/dl (6.3-8.2)
[2024-12-22 18:04] LABS: Magnesium 1.4 mg/dl (1.6-2.3)
[2024-12-22] MEDS: SODIUM CHLORIDE 0.9% 10ML SYR (RAD ONLY) 10 ML IV (18:11)
[2024-12-22] MEDS: 0.9 % SODIUM CHLORIDE 50 ML VIAL IV (18:11)
[2024-12-22] MEDS: IOPAMIDOL-370 (76%);100ML BOTTLE 70 ML IV (18:11)
[2024-12-22 18:14] LABS: NT Pro Brain Natriuretic Pep. 17500 pg/mL (0-125)
[2024-12-22 18:16] LABS: Troponin I 0.09 ng/ml (0.00-0.034)
[2024-12-22] MEDS: LACTATED RINGERS 1000ML 1,000 ML 999 ML IV (18:19)
[2024-12-22 18:20] LABS: Activated Partial Thrombo Time 21.3 seconds (22.8-30.6); INR 1.02 (0.9-1.1); Prothrombin Time 11.4 seconds (10.1-12.5)
[2024-12-22 18:21] LABS: T4 (Thyroxine) 9.9 ug/dl (5.53-11.0)
--- NOTE | 2024-12-22 18:27 | PC.NURSE ---
PT WAS GIVEN A URINAL AT THIS TIME
[2024-12-22 18:34] LABS: Thyroid Stimulating Hormone 5.14 uIU/mL (0.465-4.68)
--- NOTE | 2024-12-22 19:00 | HMH.EDGENADL ---
Discharge Plan Disposition Patient Disposition: Admitted Chief Complaint: Recheck/Abnormal Lab/Rx Clinical Impressions Clinical Impression: CHF (congestive heart failure), New onset of congestive heart failure, Elevated troponin Discharge ED Provider: Bharat Lopez General Adult HPI General Chief complaint: Recheck/Abnormal Lab/Rx Stated complaint: blood issues? Told to come back to ER Time Seen by Provider: 12/22/24 17:40 Mode of Arrival: Ambulatory Source of Information: Patient Description of Symptoms (Recalled from ER Triage Doc. by RN): Pt was called by the er to come in and be seen again due to having an abnormal lab. Pt states he is unsure of what lab it is, but they think I have a clot. History of Present Illness HPI narrative: Please note that above description of symptoms, in this electronic medical record under categorization of recalled from ER triage doctor by RN are reflective of an initial nursing assessment, however, is not reflective of my full history and physical exam that was personally taken and clarified. Consequentially, this preceding description of symptoms, which may include the patient's categorized chief complaint in the EMR, do not reflect my personal clinical impression, and the ultimate description of history of present illness and patient stated complaints should be deferred to this section of the note. Unless stated otherwise or congruent with this section of the note, additional signs, symptoms, or incongruence should be interpreted as inaccurate with my clinical impression. Related Data Home Medications ?Medication ?Instructions ?Recorded ?Confirmed bumetanide 0.5 mg tablet 0.5 mg PO BID 12/22/24 levothyroxine 88 mcg tablet 75 mcg PO DAILY 12/22/24 melatonin 3 mg capsule 3 mg PO HS PRN 12/22/24 12/22/24 Previous Rx's ?Medication ?Instructions ?Recorded aspirin 81 mg tablet,delayed 81 mg PO DAILY #90 tabs 12/08/24 release (Adult Low Dose Aspirin) atorvastatin 40 mg tablet See Rx Instructions .Route 12/08/24 .COMPLEX #90 tabs cholecalciferol (vitamin D3) 1,250 1,250 mcg PO WEEKLY 90 days #13 12/08/24 mcg (50,000 unit) oral wafer wafers clopidogrel 75 mg tablet 75 mg PO DAILY #90 tabs 12/08/24 ferrous sulfate 325 mg (65 mg 325 mg PO DAILY #90 tabs 12/08/24 iron) tablet finasteride 5 mg tablet 5 mg PO DAILY #90 tabs 12/08/24 insulin glargine 100 unit/mL (3 20 unit (0.2 mL) SQ DAILY 90 days 12/08/24 mL) subcutaneous pen #18 mL insulin lispro 100 unit/mL 1 sliding scale dose SQ 12/08/24 subcutaneous pen USEASDIRECTD #15 mL isosorbide dinitrate 10 mg tablet 10 mg PO TID 90 days #270 tabs 12/08/24 omeprazole 40 mg capsule,delayed 40 mg PO DAILY stomach 90 days #90 12/08/24 release caps empagliflozin 10 mg tablet 10 mg PO DAILY #90 tabs 12/14/24 (Jardiance) carvedilol 6.25 mg tablet (Coreg) 6.25 mg PO BID #60 tabs 12/22/24 Allergies Allergy/AdvReac Type Severity Reaction Status Date / Time amoxicillin Allergy Rash Verified 12/22/24 14:37 Penicillins Allergy Rash Verified 12/22/24 14:37 [facility] Disclaimer: The information contained in this section may have been updated after the patient was seen, as this information can be updated by other users. Medical History Foreign body in left ear Hearing loss Tympanosclerosis, right ear Left serous otitis media Acute left otitis media Dizziness Dysuria PAF (paroxysmal atrial fibrillation) CKD stage 4 due to type 2 diabetes mellitus Typical angina Coronary artery disease Stroke Surgical History History of colonoscopy Presence of stent in coronary artery Hx of CABG Family History Other No significant family history Social History Smoking Status: Former smoker tobacco type: cigarettes packs per day: 1 alcohol intake: never substance use type: denies use current occupational status: employed Travel in the last 8 weeks: Inside the [place] household members: spouse housing: house current occupation: [employer] current occupational exposures/hazards: No caffeine: Yes Have you lived/traveled outside [place] in past 30 days?: No Contact w/someone who lives/traveled outside [place] past 30 days?: No Exposure to someone with infectious disease in past 14 days?: No Do you have a fever (greater than 100.4 F or 38 C)?: No Have you tested positive for COVID-19: No Exposed to someone with COVID-19 in past 14 days?: No Do you have a sore throat?: No Do you have a cough?: No Do you have any weakness?: No Do you have any diarrhea?: No Are you experiencing any unusual bleeding?: No Do you have any muscle aches/pain?: No Do you have any abdominal pain?: No Are you experiencing loss of taste or smell?: No Other Medical History Have you received the Flu Vaccine for this season: No Have you received the Pneumonia Vaccine: No ROS Obtained: Yes All systems reviewed & no additional complaints except as documented Physical Exam General General appearance: alert Head Head exam: atraumatic and normocephalic Eye Eye exam: Present normal appearance, PERRL and EOMI Neck Neck exam: Present normal inspection, full ROM and trachea midline Respiratory Respiratory exam: Absent respiratory distress, wheezes, stridor, accessory muscle use or prolonged expiratory phase Cardiovascular Cardiovascular exam: Present normal rhythm, tachycardia and other (Pulses equal symmetric in upper and lower extremities) Abdominal Exam Abdominal exam: Present soft; Absent distention, tenderness or pulsatile mass Extremities Exam Extremities exam: Absent edema Neurological Exam Neurological exam: Present alert, oriented X3 and CN II-XII intact; Absent motor sensory deficit Skin Skin exam: Present warm and dry; Absent diaphoresis or erythema Medical Decision Making Medical Records Medical records reviewed: Yes I reviewed the patient's medical records. Screening: Per USPSTF and CDC recommendations, given the prevalence of disease in our region, it is our hospital?s policy to screen for HIV and viral Hepatitis for all patients aged 18 and over and those with ongoing risk factors. Roderick Inquiry Pt receiving controlled substance: No Roderick was queried for this patient: No Vital Signs: 12/22/24 17:23 12/22/24 17:46 12/22/24 17:55 Temperature 97.9 F 98.7 F Temperature Source Temporal Artery Scan Oral Pulse Rate 103 H 102 H Pulse Rate [Right] 108 H Respiratory Rate 18 15 Blood Pressure 148/91 H 148/91 H Blood Pressure [Right Arm] 156/94 H Blood Pressure Mean Blood Pressure Mean [Right Arm] 114 Blood Pressure Source Automatic Cuff Blood Pressure Source [Right Arm] Automatic Cuff Blood Pressure Position Supine Blood Pressure Position [Right Arm] Sitting 02 Sat by Pulse Oximetry 100 99 98 Oxygen Delivery Method Room Air Room Air Room Air 12/22/24 18:26 12/22/24 18:30 Temperature Temperature Source Pulse Rate 99 H 103 H Pulse Rate [Right] Respiratory Rate Blood Pressure 149/89 H 148/98 H Blood Pressure [Right Arm] Blood Pressure Mean 105 108 Blood Pressure Mean [Right Arm] Blood Pressure Source Blood Pressure Source [Right Arm] Blood Pressure Position Blood Pressure Position [Right Arm] 02 Sat by Pulse Oximetry 97 98 Oxygen Delivery Method Room Air Room Air Lab Data Lab Results 12/22/24 17:41: VBG pH 7.37, VBG pCO2 36.4, VBG pO2 47.4 H, VBG HCO3 20.4 L, VBG Total CO2 21.5 L, VBG O2 Saturation 79.3 H, VBG Base Excess -4.9 L, VBG Lactic Acid 2.2 H 12/22/24 17:46: WBC 9.5, RBC 4.54 L, Hgb 13.1 L, Hct 39.5 L, MCV 87.0, MCH 28.9, MCHC 33.2, RDW 15.9, Plt Count 286, MPV 10.1, Neut % (Auto) 77.3, Lymph % (Auto) 13.2, Rogers % (Auto) 7.9, Eos % (Auto) 0.9, Baso % (Auto) 0.3, Neut # (Auto) 7.4, Lymph # (Auto) 1.3, Rogers # (Auto) 0.8, Eos # (Auto) 0.1, Baso # (Auto) 0.0, PT 11.4, INR 1.02, APTT 21.3 L, Sodium 133 L, Potassium 3.6, Chloride 98, Carbon Dioxide 23, Anion Gap 15.6 H, BUN 32 H, Creatinine 2.40 H, Estimated Creat Clear 32, Estimated GFR 27 L, Est GFR ( Amer) 32 L, Glucose 359 H, Calcium 9.6, Magnesium 1.4 L, Total Bilirubin 0.8, AST 34, ALT 32, Alkaline Phosphatase 151 H, Troponin I 0.09 H, NT-Pro-B Natriuret Pep 68671 H, Total Protein 8.3 H, Albumin 4.9, Globulin 3.4 H, Albumin/Globulin Ratio 1.4, TSH 5.14 H, Thyroxine (T4) 9.9 12/22/24 17:46 12/22/24 17:46 Orders (Tests/Meds): ED MEDICATIONS Generic Name Dose Route Start Last Admin Trade Name Freq PRN Reason Stop Dose Admin Acetaminophen 650 mg 12/22/24 19:32 Acetaminophen 325mg Tab PO 01/21/25 19:31 Q4HP PRN Fever or Mild Pain (1-3) Enoxaparin Sodium 40 mg 12/23/24 09:00 Enoxaparin 40mg/0.4ml Syringe SUBCUT 01/22/25 08:59 DAILY PJ Insulin Human Lispro 0 unit 12/22/24 21:00 Humalog 100 Units/Ml 10ml Vial (Ssi) SUBCUT 01/21/25 20:59 ACHS PJ Protocol Levalbuterol HCl 1.25 mg 12/22/24 20:00 Levalbuterol 1.25mg/3ml Neb IH 01/21/25 19:59 QIDRT PJ Pantoprazole Sodium 40 mg 12/22/24 21:00 Pantoprazole 40mg Tablet PO 01/21/25 20:59 HS PJ Discontinued Medications Generic Name Dose Route Start Last Admin Trade Name Freq PRN Reason Stop Dose Admin Aspirin 324 mg 12/22/24 19:06 12/22/24 19:15 Aspirin 81mg Chewable Tablet PO 12/22/24 19:07 324 mg ONCE ONE Administration Furosemide 60 mg 12/22/24 19:00 12/22/24 19:15 Furosemide 40mg/4ml Vial IV 12/22/24 19:01 60 mg ONCE ONE Administration Lactated Ringer's 1,000 mls @ 999 mls/hr 12/22/24 17:59 12/22/24 18:19 Lactated Ringer's 1000 Ml Bag IV 12/22/24 18:59 999 mls/hr .Q1H1M ONE Administration Magnesium Sulfate 2 gm in 50 mls @ 50 mls/hr 12/22/24 19:00 12/22/24 19:15 Magnesium Sulfate 2gm/50ml Premix IV 12/22/24 19:59 50 mls/hr ONCE ONE Administration Iopamidol 70 ml 12/22/24 18:02 12/22/24 18:11 Iopamidol-370 (76%);100ml Bottle IV 12/22/24 18:03 70 ml ONCE ONE Administration Magnesium Oxide 800 mg 12/22/24 19:00 12/22/24 19:15 Magnesium Oxide 400mg Tablet PO 12/22/24 19:01 800 mg ONCE ONE Administration Sodium Chloride 50 ml 12/22/24 18:02 12/22/24 18:11 0.9 % Sodium Chloride 50 Ml Vial IV 12/22/24 18:03 50 ml ONCE ONE Administration Sodium Chloride 10 ml 12/22/24 18:02 12/22/24 18:11 Sodium Chloride 0.9% 10ml Syr (Rad Only) IV 12/22/24 18:03 10 ml ONCE ONE Administration ORDERS Category Date Time Status CT angio chest PE protocol Stat Cat Scan 12/22/24 17:40 Completed Cardiology Consult [Consult to Cardiology] [CONS] Cons 12/22/24 19:22 Active Routine Complete Blood Count Auto Diff AMLAB Lab 12/23/24 06:00 Ordered Complete Blood Count Auto Diff Stat Lab 12/22/24 17:46 Completed Comprehensive Metabolic Panel AMLAB Lab 12/23/24 06:00 Ordered Comprehensive Metabolic Panel Stat Lab 12/22/24 17:46 Completed Lipid Panel AMLAB Lab 12/23/24 06:00 Ordered Magnesium AMLAB Lab 12/23/24 06:00 Ordered Magnesium Stat Lab 12/22/24 17:46 Completed NT Pro Brain Natriuretic Pep. Stat Lab 12/22/24 17:46 Completed PT INR [Prothrombin Time INR] Stat Lab 12/22/24 17:46 Completed PTT [Activated Partial Thrombo Time] Stat Lab 12/22/24 17:46 Completed T4 (Thyroxine) Stat Lab 12/22/24 17:46 Completed TSH [Thyroid Stimulating Hormone] Stat Lab 12/22/24 17:46 Completed Troponin I Q3H Lab 12/22/24 20:45 Ordered Troponin I Q3H Lab 12/22/24 23:45 Ordered Troponin I Stat Lab 12/22/24 17:46 Completed Blood Culture Stat Micro 12/22/24 18:30 Received Venous Blood Gas Stat RT 12/22/24 17:41 Completed CA echo doppler complete AM Y 12/23/24 07:00 Ordered EKG Request [ECG Request] Stat Y 12/22/24 19:32 Ordered HEART Score History (anamnesis): Slightly suspicious ECG: Normal Age: >65 years Risk factors: 3 or more risk factors Troponin: 1-3x normal limit HEART Score: 5 Medical Decision Narrative: 74-year-old male history of hypertension, hyperlipidemia, CKD 4, paroxysmal A-fib on aspirin and Plavix, CAD status post CABG and stenting, presenting with abnormal labs. Patient completely asymptomatic. Was seen by cardiology today and labs were drawn. In these labs, D-dimer was drawn. Patient received a call that his D-dimer was elevated, needed to go to the emergency department for further evaluation. Patient presents, has no acute complaints. No chest pain, shortness of breath, weakness, nausea, vomiting, or any other concerns. Came in at the behest of cardiology. History was obtained via conversation with patient and son. On arrival, patient hemodynamically stable, alert, oriented x4, appropriate, GCS 15, moving all extremities spontaneously, pupils equal and reactive to light. Full physical exam performed and significant for clinically well-appearing male no acute distress. Speaking full sentences, appropriately interactive and has no complaints. Lungs are clear, no lower extremity edema. Abdomen soft. He is mildly tachycardic, otherwise cardiac exam negative. Differential includes PE, pneumonia, bronchitis, ACS, [place], CHF, among others. Patient placed on continuous cardiac monitoring and continuous pulse ox with initial blood pressure 156/94, heart rate 108, saturation 100%. Independent interpretation of EKG shows sinus tachycardia 104 bpm with no acute ischemic change. Left axis deviation with LVH. AK 180, QRS 102, QTc 394. Patient was given 60 mg IV Lasix For symptomatic management and correction of underlying abnormalities. Workup independently interpreted and significant for nonactionable CBC. Chemistry with mild LIANE on CKD. Appears to be intrarenal. VBG with mild metabolic acidosis with normal pH. pH 7.37, CO2 normal at 36, bicarb low at 20 with lactate 2.2. I feel mildly elevated lactate is due to the fact that VBG not placed on ice prior to laboratory evaluation. Mild hyponatremia, mild hypomagnesemia which was repleted. BNP elevated at 17,000 and troponin elevated 0.09, likely secondary to elevated BNP given nonischemic EKG. On independent interpretation of imaging, no PE, patient does have bilateral pleural effusions consistent with CHF. See radiology read for full review of final results. Heart score 5 On reevaluation, patient resting comfortably, still has no complaints. Given new onset CHF, morning echo was ordered, Lasix ordered. Hospital medicine was contacted and the case was discussed at length for admission for further evaluation. Given patient presentation, workup, history, this most likely represents new onset CHF. Because patient high risk for clinical decompensation, deemed appropriate for inpatient admission. Results were relayed to patient who voiced understanding and patient was agreeable to inpatient admission and management. Patient was admitted to the hospital for further definitive management. Travel Clerk disclaimer Much of this encounter note is an electronic registered dietitian spoken language to printed text. Electronic registered dietitian of the spoken language may permit errors. Although I have reviewed the note, some errors may still exist. Critical Care Critical Care Time Critical Care Time: Yes (cardiac) Attestation: On 12/22/24, the high probability of a clinically significant, sudden or life threatening deterioration of the following system(s) required my full and direct attention, intervention and personal management. The time I documented below is in addition to time spent performing reported procedures but includes the following listed in this critical care notation. Total Time Total Critical Care Time: 35
[2024-12-22] MEDS: MAGNESIUM SULFATE IN WATER 2 GM/50 ML PIGGYBACK IV ×2 (19:15→22:31)
[2024-12-22] MEDS: FUROSEMIDE 40MG/4ML VIAL 60 MG IV (19:15)
[2024-12-22] MEDS: ASPIRIN 81MG CHEWABLE TABLET 324 MG PO (19:15)
[2024-12-22] MEDS: MAGNESIUM OXIDE 400MG TABLET 800 MG PO (19:15)
--- NOTE | 2024-12-22 19:25 | ECG_ITS ---
APPROVED REPORT Exam: Resting ECG HR:104 bpm ECG Measurements Heart Rate 104 AXES [place] 180 P 71 QRSd 102 QRS -42 QT 333 T 104 QTc 394 Conclusion SINUS TACHYCARDIA LEFT AXIS DEVIATION [QRS AXIS < -30] PATTERN CONSISTENT WITH PULMONARY DISEASE NONSPECIFIC ST & T-WAVE ABNORMALITY ABNORMAL ECG UNCONFIRMED REPORT Electronically signed by : Roc Fajardo MD 12/24/2024 08:52:11
--- NOTE | 2024-12-22 19:59 | PC.NURSE ---
Report called to inpatient unit. Pt transported to floor via wheelchair
[2024-12-22] MEDS: LEVALBUTEROL 1.25MG/3ML NEB 1.25 MG IH (20:27)
--- NOTE | 2024-12-22 20:27 | PC.NURSE ---
Patient arrived to floor via wheelchair from ED at 20:25.
[2024-12-22 21:22] LABS: POC Glucose,Bedside 294 (70-110)
[2024-12-22] MEDS: PANTOPRAZOLE 40MG TABLET 40 MG PO (21:31)
[2024-12-22] MEDS: humaLOG 100 UNITS/ML 10ML VIAL (SSI) SUBCUT (21:31)
[2024-12-22 22:00] LABS: Reflex Lactic Add Lactic Reflex
[2024-12-22 22:00] LABS: Troponin I 0.11 ng/ml (0.00-0.034)
[2024-12-22 22:48] LABS: Lactic Acid Follow Up (RFLX 1) 1.4 mmol/L (0.7-2.1)
[2024-12-23] VITALS (11 sets, daily range): BP systolic 107–147; BP diastolic 67–87; PULSE 82–102; RESP 16–19; TEMP 36.2–36.8; O2SAT 92–99; BMI 25.4
[2024-12-23] MEDS: LORazepam 2MG/ML VIAL 1 MG IV (00:45)
[2024-12-23 01:18] LABS: Troponin I 0.11 ng/ml (0.00-0.034)
[2024-12-23 03:58] LABS: Troponin I 0.11 ng/ml (0.00-0.034)
--- NOTE | 2024-12-23 04:05 | P.HP_ITS ---
<Statement entered by Kurt Lagos MD - 12/23/24 23:43> Rounded on patient after nurse practitioner. Personally examined and interviewed patient. Agree with exam findings and care plan as documented. Case discussed with ER physician, request admission for management of CHF exacerbation, medicine agreed to admit for further care. Mr. Carrasco is a 74-year-old male with history of HFrEF, presents with acute exacerbation. BNP elevated at 17,000. Bilateral effusions on chest imaging with shortness of breath with exertion. Previous echo from 3 years ago with EF reduced. Significant diastolic dysfunction. Supposed to take Bumex at home, not having optimal response. Responding to IV diuresis overnight. Awaiting cardiology eval. Continue diuresis. Acute on Chronic HFrEF Volume overload Paroxysmal A-fib HTN - ProBNP 17k with bilateral pleural effusions and shortness of breath with exertion. Cardiology consulted to assist with care. -Received additional Lasix 60 mg admission. Responding well overnight. - Continue aspirin 81 mg daily, Lipitor 80 mg nightly, dapagliflozin 10 mg daily. -Continue metoprolol succinate 25 mg daily -Repeat echo pending CAD s/p CABG 2017 and LUKE 2021 - anginal equivalent RIDDLE here with elevated Trop at 0.09 and 0.11 - ECHO pending -Continue aspirin, metoprolol, statin as above CKD-IV with JODIE - Cr 2.4, appears at baseline. Repeat CBC, CMP, magnesium ordered for the morning. Diabetes - poorly controlled with A1C 9.2. Continue empagliflozin. Continue sliding scale insulin with fingersticks ACHS Full code Lovenox 40 mg daily Diabetic diet History of Present Illness *Admission Date: 12/22/24 *Reason for visit:: Sent by cardiology office due to elevated D-dimer and increased troponin *History of present illness: 74-year-old male with a long history of cardiac disease ejection fraction was 38% in October 2022. Status post CABG status post stenting. Patient presented with abnormal labs increased D-dimer and office wanted him to have more follow- up.. Patient was asymptomatic on arrival to the hospital. Lungs were clear. Patient was noted with bilateral pleural effusions and increased troponin please see note below from emergency room provider Patient placed on continuous cardiac monitoring and continuous pulse ox with initial blood pressure 156/94, heart rate 108, saturation 100%. Independent interpretation of EKG shows sinus tachycardia 104 bpm with no acute ischemic change. Left axis deviation with LVH. TN 180, QRS 102, QTc 394. Patient was given 60 mg IV Lasix For symptomatic management and correction of underlying abnormalities. Workup independently interpreted and significant for nonactionable CBC. Chemistry with mild LIANE on CKD. Appears to be intrarenal. VBG with mild metabolic acidosis with normal pH. pH 7.37, CO2 normal at 36, bicarb low at 20 with lactate 2.2. I feel mildly elevated lactate is due to the fact that VBG not placed on ice prior to laboratory evaluation. Mild hyponatremia, mild hypomagnesemia which was repleted. BNP elevated at 17,000 and troponin elevated 0.09, likely secondary to elevated BNP given nonischemic EKG. On independent interpretation of imaging, no PE, patient does have bilateral pleural effusions consistent with CHF. See radiology read for full review of final results. Heart score 5 . Patient is also noted with elevated blood sugar., Troponin basically stable 0.09 up to 0.11, patient remains asymptomatic but with his past medical history. Will place him on the floor to follow, labs and blood sugar. Consult and cardi ology to evaluate him. Reviewing old records from September 2022. Ejection fraction was 38%, noting that the patient has a long history of renal insufficiency. With creatinine averaging from 1.90 up to 2.4 and most recent labs available in the medical record. Patient does show some signs of congestive heart failure with changing in laboratory values question whether the ejection fraction is decreasing in the heart versus there is decreased perfusion for arterial vessels of the heart. For this reason we will place him and allow the mutuel teller to see him determine the next best step and to evaluate any potential worsening CHF and renal function [facility] Disclaimer: The information contained in this section may have been updated after the patient was seen, as this information can be updated by other users. Medical History Foreign body in left ear Hearing loss Tympanosclerosis, right ear Left serous otitis media Acute left otitis media Dizziness Dysuria PAF (paroxysmal atrial fibrillation) CKD stage 4 due to type 2 diabetes mellitus Typical angina Coronary artery disease Stroke Surgical History History of colonoscopy Presence of stent in coronary artery Hx of CABG Family History Other No significant family history Social History Smoking Status: Former smoker tobacco type: cigarettes packs per day: 1 alcohol intake: never substance use type: denies use current occupational status: employed Travel in the last 8 weeks: Inside the [place] household members: spouse housing: house current occupation: [employer] current occupational exposures/hazards: No caffeine: Yes Have you lived/traveled outside [place] in past 30 days?: No Contact w/someone who lives/traveled outside US past 30 days?: No Exposure to someone with infectious disease in past 14 days?: No Do you have a fever (greater than 100.4 F or 38 C)?: No Have you tested positive for COVID-19: No Exposed to someone with COVID-19 in past 14 days?: No Do you have a sore throat?: No Do you have a cough?: No Do you have any weakness?: No Do you have any diarrhea?: No Are you experiencing any unusual bleeding?: No Do you have any muscle aches/pain?: No Do you have any abdominal pain?: No Are you experiencing loss of taste or smell?: No Other Medical History Have you received the Flu Vaccine for this season: No Have you received the Pneumonia Vaccine: No Review of Systems Review of Systems Review of systems:: pertinent systems reviewed and negative unless documented below Constitutional Constitutional: Reports as per HPI Comments: Patient's present condition has been no significant changes not having chest pain or any significant shortness of breath on normal exertion Eyes Eyes: Reports as per HPI ENT Ears, Nose, Mouth, and Throat: Reports as per HPI *Cardiovascular Cardiovascular: Reports as per HPI *Respiratory Respiratory: Reports as per HPI *Gastrointestinal Gastrointestinal: Reports as per HPI *Genitourinary Genitourinary: Reports as per HPI *Musculoskeletal Musculoskeletal: Reports as per HPI Integumentary/Breasts Skin/Breast: Reports as per HPI *Neurologic Neurologic: Reports as per HPI Psychiatric Psychiatric: Reports as per HPI Endocrine Endocrine: Reports as per HPI Hematologic/Lymphatic Hematologic/Lymphatic: Reports as per HPI Allergic/Immunologic Allergic/Immunologic: Reports as per HPI Meds Home Medications and Allergies Home Medications ?Medication ?Instructions ?Recorded ?Confirmed ?Type aspirin 81 mg tablet,delayed 81 mg PO DAILY #90 tabs 12/08/24 12/22/24 Rx release (Adult Low Dose Aspirin) atorvastatin 40 mg tablet See Rx Instructions .Route 12/08/24 12/22/24 Rx .COMPLEX #90 tabs cholecalciferol (vitamin D3) 1,250 1,250 mcg PO WEEKLY 90 days #13 12/08/24 12/22/24 Rx mcg (50,000 unit) oral wafer wafers ferrous sulfate 325 mg (65 mg 325 mg PO DAILY #90 tabs 12/08/24 12/22/24 Rx iron) tablet finasteride 5 mg tablet 5 mg PO DAILY #90 tabs 12/08/24 12/22/24 Rx insulin glargine 100 unit/mL (3 20 unit (0.2 mL) SQ DAILY 90 days 12/08/24 12/22/24 Rx mL) subcutaneous pen #18 mL insulin lispro 100 unit/mL 1 sliding scale dose SQ 12/08/24 12/22/24 Rx subcutaneous pen USEASDIRECTD #15 mL isosorbide dinitrate 10 mg tablet 10 mg PO TID 90 days #270 tabs 12/08/24 12/22/24 Rx omeprazole 40 mg capsule,delayed 40 mg PO DAILY stomach 90 days #90 12/08/24 12/22/24 Rx release caps empagliflozin 10 mg tablet 10 mg PO DAILY #90 tabs 12/14/24 12/22/24 Rx (Jardiance) bumetanide 0.5 mg tablet 0.5 mg PO BID 12/22/24 12/22/24 History carvedilol 6.25 mg tablet (Coreg) 6.25 mg PO BID #60 tabs 12/22/24 12/22/24 Rx levothyroxine 88 mcg tablet 75 mcg PO DAILY 12/22/24 12/22/24 History melatonin 3 mg capsule 3 mg PO HS PRN Sleep 12/22/24 12/22/24 History New Prescriptions to Start Prescriptions: Allergies Allergy/AdvReac Type Severity Reaction Status Date / Time amoxicillin Allergy Rash Verified 12/22/24 14:37 Penicillins Allergy Rash Verified 12/22/24 14:37 Exam Data for Last 24 hours Vital signs and Labs for Last 24 Hours: Temp Pulse Resp BP Pulse Ox O2 Del Method 98.1 F 97 H 18 147/85 H 96 Room Air 12/23/24 00:00 12/23/24 00:00 12/23/24 00:00 12/23/24 00:00 12/23/24 00:00 12/23/24 01:00 Laboratory Results - last 24 hr 12/22/24 17:41: VBG pH 7.37, VBG pCO2 36.4, VBG pO2 47.4 H, VBG HCO3 20.4 L, VBG Total CO2 21.5 L, VBG O2 Saturation 79.3 H, VBG Base Excess -4.9 L, VBG Lactic Acid 2.2 H 12/22/24 17:46: WBC 9.5, RBC 4.54 L, Hgb 13.1 L, Hct 39.5 L, MCV 87.0, MCH 28.9, MCHC 33.2, RDW 15.9, Plt Count 286, MPV 10.1, Neut % (Auto) 77.3, Lymph % (Auto) 13.2, [place] % (Auto) 7.9, Eos % (Auto) 0.9, Baso % (Auto) 0.3, Neut # (Auto) 7.4, Lymph # (Auto) 1.3, [place] # (Auto) 0.8, Eos # (Auto) 0.1, Baso # (Auto) 0.0, PT 11.4, INR 1.02, APTT 21.3 L, Sodium 133 L, Potassium 3.6, Chloride 98, Carbon Dioxide 23, Anion Gap 15.6 H, BUN 32 H, Creatinine 2.40 H, Estimated Creat Clear 32, Estimated GFR 27 L, Est GFR ( Amer) 32 L, Glucose 359 H, Calcium 9.6, Magnesium 1.4 L, Total Bilirubin 0.8, AST 34, ALT 32, Alkaline Phosphatase 151 H , Troponin I 0.09 H, NT-Pro-B Natriuret Pep 42132 H, Total Protein 8.3 H, A lbumin 4.9, Globulin 3.4 H, Albumin/Globulin Ratio 1.4, TSH 5.14 H, Thyroxine (T4) 9.9 12/22/24 21:12: POC Glucose 294 H 12/22/24 21:29: Troponin I 0.11 H 12/22/24 22:29: Lactate 1.4 12/23/24 00:00: Troponin I 0.11 H I & O for Last 24 hours: Intake & Output 03/17/25 03/18/25 03/19/25 03/20/25 05:59 05:59 05:59 05:59 Intake Total 200 / 200 Output Total 600 / 600 Balance -400 / -400 Weight 176 lb 8 oz Radiology Reports for the Last 24 Hours: 1. No pulmonary emboli. 2. Mild interlobular septal thickening in the mid to lower lungs may represent mild pulmonary venous congestion. 3. There is edema around the gastric antrum of indeterminate significance. Please correlate for evidence of gastritis and possible ulcer disease. 4. Nonspecific periportal edema. Please exclude acute hepatitis clinically. 5. Small pleural effusions. Constitutional Constitutional: no acute distress and cooperative *Routine HEENT Exam Head: Present normocephalic and atraumatic Eye: Present EOMI, PERRL and normal accommodation ENT: Present mucous membranes moist *Routine Neck Exam Neck: Present supple and full ROM Routine Chest/Breast/Axilla Exam Comments: No deficits or pain found *Routine Respiratory Exam Respiratory: Present CTA bilaterally, wheezes (Wheeze right posterior lung at end expiration), normal respiratory effort, able to speak in complete sentences and symmetric chest movement *Routine Cardiovascular Exam Cardiovascular: Present RRR, Normal S1, Normal S2 and tachycardia *Routine Abdominal Exam Abdominal: Present soft, normoactive bowel sounds and obese *Routine Rectal Exam Rectal:: deferred *Routine Genitalia Exam Genitalia:: deferred *Routine Extremities Exam Extremities: Present pulses intact and normal capillary refill Comments: Patient is able to walk well no signs of loss of balance has good range of motion in all extremities Routine Back/Spine/Pelvis Exam Back/Spine: Present full ROM Comments: No signs of back injury or any decreased significant and flexibility. No sign of any significant pain *Routine Skin Exam Skin: Present intact, dry, warm and normal turgor *Routine Neurological Exam Neurological: Present alert, oriented X3, CN II-XII intact, normal reflexes, moving all extremities, normal tone, vision grossly intact and hearing grossly intact Routine Psychiatric Exam Psychiatric: Present normal affect, normal thought process, cooperative, good insight and good judgment H&P: Result Impressions 1. Increased signs of congestive heart failure versus underlying ischemia 2. Chronic kidney insufficiency. Imaging and Cardiology CT scan - chest: Status: image reviewed by me Additional comments: Bilateral pleural effusions Assessment and Plan *Assessment and plan (1) Elevated troponin: Status: Acute Category: Medical Code(s): R79.89 - Other specified abnormal findings of blood chemistry (2) New onset of congestive heart failure: Status: Acute Category: Medical Code(s): I50.9 - Heart failure, unspecified (3) Sinus tachycardia: Status: Acute Category: Medical Code(s): R00.0 - Tachycardia, unspecified (4) DM type 2 (diabetes mellitus, type 2): Status: Acute Qualifiers: Diabetes mellitus manager retail sales insulin use: without mcfp use Diabetes mellitus complication status: with other specified complication Qualified Code(s): E11.69 - Type 2 diabetes mellitus with other specified complication Category: Medical Code(s): E11.9 - Type 2 diabetes mellitus without complications (5) Calf cramp: Status: Acute Category: Medical Code(s): R25.2 - Cramp and spasm Plan 1. CHF new onset. Patient was given Lasix in the ER we have ordered a echo cardiogram., Patient has been transferred to the floor and is stable at this point in time. 2. cramping in calfs: But has started to complain of cramping in the back of both calves. Venous Doppler has been ordered due to having positive Homans' sign.. Had tried some lorazepam but cramping did not stop. Patient has been given 1 dose of Flexeril for the calf cramping. 3 Diabetes mellitus type 2 and electrolyte imbalance. , Adjust medications as we need to keep on diabetic diet., Patient is stable at this time, will await results of cardiology consult
[2024-12-23] MEDS: ACETAMINOPHEN 325MG TAB 650 MG PO (05:14)
[2024-12-23] MEDS: humaLOG 100 UNITS/ML 10ML VIAL (SSI) SUBCUT ×4 (05:19→20:54)
[2024-12-23 05:27] LABS: POC Glucose,Bedside 326 (70-110)
[2024-12-23] MEDS: LEVALBUTEROL 1.25MG/3ML NEB 1.25 MG IH ×4 (06:08→23:47)
[2024-12-23] MEDS: CYCLOBENZAPRINE 10MG TABLET 10 MG PO (06:20)
--- NOTE | 2024-12-23 06:22 | CA_ITS ---
FINAL REPORT CLINICAL HISTORY: LEG CRAMPS,HTN,HLD,DM,PT ON BLOOD THINNER FINDINGS: Multiple transverse and longitudinal scans were performed of the femoral popliteal deep venous system, with augmentation and compression maneuvers. Normal phasic flow was noted in the visualized deep venous system. No intraluminal increased echogenicity is noted to suggest thrombus. There is normal compression and augmentation of the venous structures. No abnormal venous collaterals are seen. IMPRESSION: No evidence of deep venous thrombosis of the bilateral lower extremities. Reviewed, Interpreted and Dictated by Devika Johnson MD Transcribed by Veronica Wilder Authenticated and [facility]
[2024-12-23 06:50] LABS: Basophils % 0.6 % (0.1-2.0); Eosinophils # 0.1 K/mm3 (0.0-0.4); Eosinophils % 1.3 % (0.1-12.0); Hematocrit 37.4 % (42.0-52.0); Hemoglobin 12.6 g/dL (14.1-18.0); Lymphocytes % 14.7 % (10-50); Mean Corpuscular HGB Conc 33.7 g/dL (31.8-35.4); Mean Corpuscular Volume 86.2 fl (80-94); Mean Platelet Volume 10.3 fl (7.4-10.4); Monocytes # 0.5 K/mm3 (0.1-1.0); Monocytes % 7.7 % (1.7-9.3); Neutrophils # 5.1 K/mm3 (1.8-7.8); Neutrophils % 75.3 % (37.0-80.0); Platelet Count 245 K/mm3 (142-424); Red Blood Count 4.34 M/mm3 (4.60-6.20); Red Cell Distribution Width 15.9 % (11.5-17.5); White Blood Count 6.7 K/mm3 (4.8-10.8)
--- NOTE | 2024-12-23 07:00 | CA_ITS ---
APPROVED REPORT EXAM: Comprehensive 2D, Doppler, and color-flow Echocardiogram Padding Gluer: Enriqueta Hunt RDCS Ht: 5 ft 9 in Wt: 183lbs BSA: 1.99 BP: 156/94 mmHg Indications: CAD,PAF,INCREASED TROP,H/O CABG,PAST EF 10/28 38%,STATUS DNI,DNR M-Mode Dimensions RVDd 1.93 cm (0.9-2.6) LA Diam 4.30 cm (1.9-4.0) LVDd 7.51 cm (3.5-5.7) LVDs 6.42 cm (3.5-5.7) IVSd 0.83 cm (0.6-1.1) PWd 0.81 cm (0.6-1.1) EF (Teich) 29.80% FS 14.50% EDV (Teich) 299.20 mL ESV (Teich) 210.00 mL Tricuspid Valve TR P. Velocity 266.00 cm/s RAP Estimate 10.00 mmHg RVSP 38.30 mmHg Left Ventricle The left ventricle is normal size. The left ventricular systolic function is moderately to severely reduced. There is increased LV wall thickness. There is moderate global hypokinesis present. The septal and anteroseptal LV dickson are severely hypokinetic. Diastolic function is indeterminate. LVEF is 30%. Right Ventricle The right ventricle is mildly dilated. Right ventricle is mildly hypokinetic. Atria Left atrium is mildly dilated. Right atrium is mildly dilated. There is no Doppler evidence of interatrial shunt. Aortic Valve The aortic valve is mildly thickened. There is no aortic valvular stenosis. No aortic regurgitation is present. Mitral Valve The mitral valve is normal in structure. No evidence of mitral valve stenosis. Mitral regurgitation. Tricuspid Valve Tricuspid valve is grossly normal in structure and function. Mild tricuspid regurgitation. RVSP is 30 mmHg + RA pressure. Pulmonic Valve The pulmonary valve is normal in structure. Trace pulmonic regurgitation. Great Vessels The aortic root is normal in size. The IVC is not well-visualized. Pericardium There is no pericardial effusion. Other Information Study Quality: Technically Difficult Conclusion Technically difficult study due to poor acoustic windows. Moderate to severe reduction global LV systolic function (LVEF 30%). Severe hypokinesis of the septal and anteroseptal LV dickson. Mild RV dilation with mild reduction in RV function. Biatrial dilation. Mild TR. RVSP 30 mmHg + RA pressure. Electronically signed by : Cornelia Lees MD 12/23/2024 12:13:03
[2024-12-23 07:07] LABS: Alanine Aminotransferase 27 U/L (12-78); Albumin Level 4.2 g/dl (3.5-5.0); Albumin/Globulin Ratio 1.3 (1.1-1.8); Alkaline Phosphatase 87 U/L (38-126); Anion Gap 12.2 mEq/L (5-15); Aspartate Amino Transferase 29 U/L (17-59); Bilirubin,Total 0.9 mg/dl (0.2-1.3); Blood Urea Nitrogen 31 mg/dl (9-20); Calcium 10.1 mg/dl (8.4-10.2); Carbon Dioxide 27 mmol/L (22.0-30.0); Chloride 98 mmol/L (98-107); Chol/HDL Ratio 3.1 (1-3.5); Cholesterol 109 mg/dl (140-200); Creatinine Clearance Estimated 32 mL/min (50-200); Estimated Glomerular Filt Rate 28 ml/min (>60); GFR (African American) 34 ML/MIN (>60); Globulin 3.2 g/dL (1.3-3.2); Glucose 252 mg/dl (74-100); HDL Cholesterol 35 mg/dl (40-60); Magnesium 2.2 mg/dl (1.6-2.3); Potassium 3.2 mmoL/L (3.5-5.1); Sodium 134 mmol/L (136-145); Total Protein,Serum 7.4 g/dl (6.3-8.2); Triglycerides 91 mg/dl (30-150); VLDL Cholesterol 18 mg/dL (0-40)
[2024-12-23 07:17] LABS: Troponin I 0.11 ng/ml (0.00-0.034)
[2024-12-23 07:18] LABS: Direct LDL Cholesterol 47.24 mg/dL (100-129)
[2024-12-23 07:57] LABS: D-Dimer 0.87 ug/mL (0.0-0.5)
[2024-12-23] MEDS: ENOXAPARIN 40MG/0.4ML SYRINGE 40 MG SUBCUT (08:35)
--- NOTE | 2024-12-23 08:42 | ECG_ITS ---
APPROVED REPORT Exam: Resting ECG HR:98 bpm ECG Measurements Heart Rate 98 AXES [place] 175 P 60 QRSd 102 QRS -19 QT 359 T 143 QTc 414 Conclusion SINUS RHYTHM MINIMAL ST DEPRESSION [0.025+ mV ST DEPRESSION] ABNORMAL QRS-T ANGLE [QRS-T AXIS DIFFERENCE > 60] ABNORMAL ECG UNCONFIRMED REPORT Electronically signed by : Roc Fajardo MD 12/24/2024 08:51:21
[2024-12-23] MEDS: POTASSIUM CHLORIDE 20MEQ TAB 40 MEQ PO ×2 (09:51→12:08)
--- NOTE | 2024-12-23 12:05 | EXP.CARD.CON ---
History of Present Illness History of Present Illness Consult date: 12/23/24 Requesting physician: Kurt Lagos Consult reason: shortness of breath Chief complaint: SOA History of present illness: 74-year-old white male admitted through the emergency room yesterday for CHF which is why we are consulted. He was actually seen in our office as a new patient yesterday afternoon for evaluation of A-fib which he states was diagnosed at [facility] in September. He has a history of CAD status post CABG 2016, drug-eluting stents in 2021, HFrEF with a EF 42% and grade 2 diastolic dysfunction in 2021, pulmonary fibrosis. In our office he was short of breath walking flat ground and EKG showed sinus tachycardia at 110 bpm. Stat D-dimer was elevated so he was referred to the emergency room. On arrival to the ER CTA was negative for PE but patient had bilateral pleural effusions proBNP 17,000, creatinine 2.4, A1c 9.2, troponin flat at 0.09 then 0.11 x 3, LDL 47. EKG shows sinus tach with LVH. 2D echo is ordered and pending. Patient was given IV Lasix and admitted overnight for observation. This morning he is lying flat comfortably without shortness of breath and has no peripheral edema. Denies chest pain. He is very drowsy and keeps falling asleep during exam. Will reassess again this afternoon. [facility] Disclaimer: The information contained in this section may have been updated after the patient was seen, as this information can be updated by other users. Medical History Foreign body in left ear Hearing loss Tympanosclerosis, right ear Left serous otitis media Acute left otitis media Dizziness Dysuria PAF (paroxysmal atrial fibrillation) CKD stage 4 due to type 2 diabetes mellitus Typical angina Coronary artery disease Stroke Surgical History History of colonoscopy Presence of stent in coronary artery Hx of CABG Family History Other No significant family history Social History Smoking Status: Former smoker tobacco type: cigarettes packs per day: 1 alcohol intake: never substance use type: denies use current occupational status: employed Travel in the last 8 weeks: Inside the [place] household members: spouse housing: house current occupation: [employer] current occupational exposures/hazards: No caffeine: Yes Have you lived/traveled outside [place] in past 30 days?: No Contact w/someone who lives/traveled outside US past 30 days?: No Exposure to someone with infectious disease in past 14 days?: No Do you have a fever (greater than 100.4 F or 38 C)?: No Have you tested positive for COVID-19: No Exposed to someone with COVID-19 in past 14 days?: No Do you have a sore throat?: No Do you have a cough?: No Do you have any weakness?: No Do you have any diarrhea?: No Are you experiencing any unusual bleeding?: No Do you have any muscle aches/pain?: No Do you have any abdominal pain?: No Are you experiencing loss of taste or smell?: No Review of Systems Constitutional Constitutional: Denies fatigue and Reports weakness Eyes Eyes: Denies loss of vision ENT Ears, Nose, Mouth, and Throat: Denies hearing loss *Cardiovascular Cardiovascular: Denies chest pain and Reports dyspnea *Respiratory Respiratory: Denies cough and Reports dyspnea *Gastrointestinal Gastrointestinal: Denies change in stool character, Denies nausea and Denies vomiting *Genitourinary Genitourinary: Denies difficulty urinating *Musculoskeletal Musculoskeletal: Denies muscle weakness Integumentary/Breasts Skin/Breast: Denies changing lesions *Neurologic Neurologic: Reports as per HPI, Denies loss of vision and Reports weakness Endocrine Endocrine: Denies fatigue Exam Data for Last 24 hours Vital signs and Labs for Last 24 Hours: Temp Pulse Resp BP Pulse Ox O2 Del Method 97.1 F L 87 19 137/76 92 L Room Air 12/23/24 08:00 12/23/24 10:26 12/23/24 08:00 12/23/24 08:00 12/23/24 10:26 12/23/24 10:26 Laboratory Results - last 24 hr 12/22/24 17:41: VBG pH 7.37, VBG pCO2 36.4, VBG pO2 47.4 H, VBG HCO3 20.4 L, VBG Total CO2 21.5 L, VBG O2 Saturation 79.3 H, VBG Base Excess -4.9 L, VBG Lactic Acid 2.2 H 12/22/24 17:46: WBC 9.5, RBC 4.54 L, Hgb 13.1 L, Hct 39.5 L, MCV 87.0, MCH 28.9, MCHC 33.2, RDW 15.9, Plt Count 286, MPV 10.1, Neut % (Auto) 77.3, Lymph % (Auto) 13.2, Lewis % (Auto) 7.9, Eos % (Auto) 0.9, Baso % (Auto) 0.3, Neut # (Auto) 7.4, Lymph # (Auto) 1.3, Lewis # (Auto) 0.8, Eos # (Auto) 0.1, Baso # (Auto) 0.0, PT 11.4, INR 1.02, APTT 21.3 L, Sodium 133 L, Potassium 3.6, Chloride 98, Carbon Dioxide 23, Anion Gap 15.6 H, BUN 32 H, Creatinine 2.40 H, Estimated Creat Clear 32, Estimated GFR 27 L, Est GFR ( Amer) 32 L, Glucose 359 H, Calcium 9.6, Magnesium 1.4 L, Total Bilirubin 0.8, AST 34, ALT 32, Alkaline Phosphatase 151 H, Troponin I 0.09 H, NT-Pro-B Natriuret Pep 19881 H, Total Protein 8.3 H, Albumin 4.9, Globulin 3.4 H, Albumin/Globulin Ratio 1.4, TSH 5.14 H, Thyroxine (T4) 9.9 12/22/24 21:12: POC Glucose 294 H 12/22/24 21:29: Troponin I 0.11 H 12/22/24 22:29: Lactate 1.4 12/23/24 00:00: Troponin I 0.11 H 12/23/24 03:27: Troponin I 0.11 H 12/23/24 05:16: POC Glucose 326 H* 12/23/24 06:10: WBC 6.7 D, RBC 4.34 L, Hgb 12.6 L, Hct 37.4 L, MCV 86.2, MCH 29.0, MCHC 33.7, RDW 15.9, Plt Count 245, MPV 10.3, Neut % (Auto) 75.3, Lymph % (Auto) 14.7, Lewis % (Auto) 7.7, Eos % (Auto) 1.3, Baso % (Auto) 0.6, Neut # (Auto) 5.1, Lymph # (Auto) 1.0, Lewis # (Auto) 0.5, Eos # (Auto) 0.1, Baso # (Auto) 0.0, Sodium 134 L, Potassium 3.2 L, Chloride 98, Carbon Dioxide 27, Anion Gap 12.2, BUN 31 H, Creatinine 2.30 H, Estimated Creat Clear 32, Estimated GFR 28 L, Est GFR ( Amer) 34 L, Glucose 252 H D, Calcium 10.1, Magnesium 2.2 D, Total Bilirubin 0.9, AST 29, ALT 27, Alkaline Phosphatase 87, Troponin I 0.11 H, Total Protein 7.4, Albumin 4.2 D, Globulin 3.2, Albumin/Globulin Ratio 1.3, Triglycerides 91, Cholesterol 109 L, LDL Cholesterol Direct 47.24 L, VLDL Cholesterol 18, HDL Cholesterol 35 L, Cholesterol/HDL Ratio 3.1 12/23/24 06:45: D-Dimer 0.87 H I & O for Last 24 hours: Intake & Output 12/20/24 12/21/24 12/22/24 12/23/24 23:59 23:59 23:59 23:59 Intake Total 560 / 560 Output Total 0 / 0 600 / 600 Balance 0 / 200 -40 / -40 Weight 176 lb 8 oz 172 lb 3.2 oz Constitutional Constitutional: no acute distress and cooperative Comments: responsive, but very drowsy and keeps falling asleep during exam *Routine HEENT Exam Eye: Present PERRL *Routine Respiratory Exam Respiratory: Present CTA bilaterally; Absent accessory muscle use, wheezes or crackles *Routine Cardiovascular Exam Cardiovascular: Present RRR, Normal S1 and Normal S2; Absent murmur, gallop or rubs *Routine Abdominal Exam Abdominal: Present soft; Absent tenderness *Routine Extremities Exam Extremities: Present pulses intact; Absent cyanosis or edema *Routine Skin Exam Skin: Present intact; Absent erythema or wounds *Routine Neurological Exam Neurological: Present alert and oriented X3 Routine Psychiatric Exam Psychiatric: Present cooperative Meds Home Medications and Allergies Home Medications ?Medication ?Instructions ?Recorded ?Confirmed ?Type aspirin 81 mg tablet,delayed 81 mg PO DAILY #90 tabs 12/08/24 12/22/24 Rx release (Adult Low Dose Aspirin) cholecalciferol (vitamin D3) 1,250 1,250 mcg PO WEEKLY 90 days #13 12/08/24 12/22/24 Rx mcg (50,000 unit) oral wafer wafers ferrous sulfate 325 mg (65 mg 325 mg PO DAILY #90 tabs 12/08/24 12/22/24 Rx iron) tablet finasteride 5 mg tablet 5 mg PO DAILY #90 tabs 12/08/24 12/22/24 Rx insulin glargine 100 unit/mL (3 20 unit (0.2 mL) SQ DAILY 90 days 12/08/24 12/22/24 Rx mL) subcutaneous pen #18 mL insulin lispro 100 unit/mL 1 sliding scale dose SQ 12/08/24 12/22/24 Rx subcutaneous pen USEASDIRECTD #15 mL isosorbide dinitrate 10 mg tablet 10 mg PO TID 90 days #270 tabs 12/08/24 12/22/24 Rx empagliflozin 10 mg tablet 10 mg PO DAILY #90 tabs 12/14/24 12/22/24 Rx (Jardiance) bumetanide 0.5 mg tablet 0.5 mg PO BID 12/22/24 12/22/24 History carvedilol 6.25 mg tablet (Coreg) 6.25 mg PO BID #60 tabs 12/22/24 12/22/24 Rx levothyroxine 88 mcg tablet 88 mcg PO DAILY 12/22/24 12/23/24 History melatonin 3 mg capsule 3 mg PO HS PRN Sleep 12/22/24 12/22/24 History atorvastatin 40 mg tablet 40 mg PO HS 12/23/24 12/23/24 History clopidogrel 75 mg tablet 75 mg PO DAILY 12/23/24 12/23/24 History omeprazole 40 mg capsule,delayed 40 mg PO DAILY 12/23/24 12/22/24 History release New Prescriptions to Start Prescriptions: Allergies Allergy/AdvReac Type Severity Reaction Status Date / Time amoxicillin Allergy Rash Verified 12/22/24 14:37 Penicillins Allergy Rash Verified 12/22/24 14:37 Assessment and Plan *Assessment and plan (1) Acute on chronic HFrEF (heart failure with reduced ejection fraction): Status: Acute Category: Medical Code(s): I50.23 - Acute on chronic systolic (congestive) heart failure (2) Hx of CABG: Status: Acute Category: Surgical Code(s): Z95.1 - Presence of aortocoronary bypass graft (3) Renal artery stenosis: Status: Acute Category: Medical Code(s): I70.1 - Atherosclerosis of renal artery (4) DM type 2 (diabetes mellitus, type 2): Status: Acute Qualifiers: Diabetes mellitus long chain quiller tender insulin use: without long chain quiller tender use Diabetes mellitus complication status: with other specified complication Qualified Code(s): E11.69 - Type 2 diabetes mellitus with other specified complication Category: Medical Code(s): E11.9 - Type 2 diabetes mellitus without complications (5) Elevated troponin: Status: Acute Category: Medical Code(s): R79.89 - Other specified abnormal findings of blood chemistry Plan Acute on Chronic HFrEF - ProBNP 17k with bilateral pleural effusions and RIDDLE - ECHO 2021: EF 42% and grade 2 diastolic dysfunction - pt takes Bumex 0.5mg BID at home and was given IV Lasix 60mg in ER last night - start Bumex 1mg BID today and start strict I/O - slow diuresis given CKD-IV - resume BB and SGLT-2 - No ARNI/ARB due to CKD, will use Hydralazine/Imdur - repeat ECHO here - repeat BMP, BNP, CXR tomorrow PAF - per pt report in September at [facility] - here - not on OAC, will need to verify PAF before recommending - resume BB CAD s/p CABG 2017 and LUKE 2021 - anginal equivalent RIDDLE here with elevated Trop at 0.09 and 0.11 - ECHO pending - resume ASA, Statin, BB - consider pre-discharge [facility] CKD-IV with JODIE - Cr 2.4 - Renal Duplex 08/2022 - high grade left JODIE - check daily labs, dose adjust meds, repeat renal artery duplex COPD with Pulm Fibrosis - O2 92% on room air DM-II - poorly controlled with A1C 9.2 and heavy microalbuminuria - cont SGLT-2 - glucose control per primary service HLD - well controlled with LDL 47
[2024-12-23 12:22] LABS: POC Glucose,Bedside 389 (70-110)
--- NOTE | 2024-12-23 12:24 | CA_ITS ---
FINAL REPORT TECHNIQUE: Spectral and color Doppler exam CLINICAL HISTORY: HTN COMPARISON: None FINDINGS: DOPPLER RENAL VESSELS HISTORY: Hypertension . FINDINGS: Intrarenal resistive indices on the right are 0.74-0.89, normal . Intrarenal resistive indices on the left are 0.74-0.89, normal . Renal size is normal and symmetric. Right main renal artery systolic velocity: 84 cm/sec. Aortic-right renal artery flow velocity ratio: 0.94 COMMENT: No evidence of hemodynamically significant renal artery stenosis . Left main renal artery systolic velocity: 181 cm/sec. Aortic-left renal artery flow velocity ratio: 2.3 COMMENT: Findings suggest that there may be greater than 50% left renal artery stenosis, likely moderate. IMPRESSION: No evidence of hemodynamically significant renal artery stenosis in the right renal artery. Findings suggestive of greater than 50% stenosis of the left renal artery, recommend CTA or MRA for further evaluation. Reviewed, Interpreted and Dictated by Devika Johnson MD Transcribed by Evita Fitzpatrick Authenticated and [facility]
[2024-12-23] MEDS: ASPIRIN EC 81MG TABLET 81 MG PO (13:29)
[2024-12-23] MEDS: HYDRALAZINE HCL 25MG TABLET 25 MG PO (13:29)
[2024-12-23] MEDS: METOPROLOL SUCCINATE XL 25MG TABLET 25 MG PO (13:29)
[2024-12-23] MEDS: DAPAGLIFLOZIN PROPANEDIOL 10 MG TABLET PO (13:29)
[2024-12-23] MEDS: ISOSORBIDE DINITRATE 20 MG TABLET PO ×2 (13:29→20:55)
[2024-12-23] MEDS: BUMETANIDE 1MG/4ML VIAL 1 MG IV (13:29)
[2024-12-23 17:24] LABS: POC Glucose,Bedside 256 (70-110)
--- NOTE | 2024-12-23 18:39 | PC.NURSE ---
a&ox4. pt resting supine in bed. ambulates with standby assistance and walker to br. diuretics administered per dec this shift. no complaints of pain. tolerating RA with sats >90%. hyperglycemic at 1100 and 1630 fingersticks. ssi administered per dec. pt has no needs a this time. call light within reach.
--- NOTE | 2024-12-23 19:11 | EXP.ACUTE.PN ---
Subjective *Date: 12/23/24 *Time: 23:33 Interval history: Stable on room air. Feeling better with diuresis. No chest pain. No nausea or vomiting. Denies shortness of breath. Able to lie flat on exam. Medical Exam Vital signs and Labs for Last 24 Hours: Vital Signs Temp Pulse Pulse Resp BP BP Pulse Ox 12/23/24 18:56 12/23/24 18:25 82 12/23/24 18:25 83 12/23/24 18:25 95 12/23/24 17:00 12/23/24 16:00 98.2 F 100 H 19 130/68 99 12/23/24 15:00 12/23/24 13:00 12/23/24 12:00 97.9 F 98 H 19 140/87 98 12/23/24 11:00 12/23/24 10:26 87 12/23/24 10:26 91 H 12/23/24 10:26 92 L 12/23/24 09:00 12/23/24 08:00 12/23/24 08:00 97.1 F L 102 H 19 137/76 97 12/23/24 06:45 12/23/24 06:11 92 H 12/23/24 06:11 95 H 12/23/24 06:11 96 12/23/24 05:00 12/23/24 04:00 97.9 F 87 19 127/67 94 L 12/23/24 03:00 12/23/24 01:00 12/23/24 00:00 98.1 F 97 H 18 147/85 H 96 12/22/24 23:00 12/22/24 21:00 12/22/24 20:27 111 H 12/22/24 20:27 109 H 12/22/24 20:27 12/22/24 20:20 98 F 98 H 20 146/114 H 97 12/22/24 20:20 98.9 F 98 H 20 146/116 H 12/22/24 20:00 98.1 F 97 H 18 147/85 H 96 12/22/24 20:00 97.5 F L 100 H 20 146/115 H 96 12/22/24 19:49 O2 Del Method 12/23/24 18:56 Room Air 12/23/24 18:25 12/23/24 18:25 12/23/24 18:25 Room Air 12/23/24 17:00 Room Air 12/23/24 16:00 Room Air 12/23/24 15:00 Room Air 12/23/24 13:00 Room Air 12/23/24 12:00 Room Air 12/23/24 11:00 Room Air 12/23/24 10:26 12/23/24 10:26 12/23/24 10:26 Room Air 12/23/24 09:00 Room Air 12/23/24 08:00 Room Air 12/23/24 08:00 Room Air 12/23/24 06:45 Room Air 12/23/24 06:11 12/23/24 06:11 12/23/24 06:11 Room Air 12/23/24 05:00 Room Air 12/23/24 04:00 Room Air 12/23/24 03:00 Room Air 12/23/24 01:00 Room Air 12/23/24 00:00 Room Air 12/22/24 23:00 Room Air 12/22/24 21:00 Room Air 12/22/24 20:27 12/22/24 20:27 12/22/24 20:27 Room Air 12/22/24 20:20 Room Air 12/22/24 20:20 Room Air 12/22/24 20:00 Room Air 12/22/24 20:00 Room Air 12/22/24 19:49 Room Air Intake and Output 12/23/24 12/23/24 12/23/24 07:59 15:59 23:59 Intake Total 200 / 1280 720 / 1280 360 / 1280 Output Total 600 / 1050 0 / 1050 450 / 1050 Balance -400 / 230 720 / 230 -90 / 230 Intake: Intake, Oral Amount 200 / 1280 720 / 1280 360 / 1280 Output: Output, Urine Amount 600 / 1050 0 / 1050 450 / 1050 Other: Number of Unmeasured Voids 0 2 1 Weight 78.109 kg Patient Weight 12/23/24 23:59 Weight 78.109 kg Laboratory Results - last 24 hr 12/22/24 21:12: POC Glucose 294 H 12/22/24 21:29: Troponin I 0.11 H 12/22/24 22:29: Lactate 1.4 12/23/24 00:00: Troponin I 0.11 H 12/23/24 03:27: Troponin I 0.11 H 12/23/24 05:16: POC Glucose 326 H* 12/23/24 06:10: WBC 6.7 D, RBC 4.34 L, Hgb 12.6 L, Hct 37.4 L, MCV 86.2, MCH 29.0, MCHC 33.7, RDW 15.9, Plt Count 245, MPV 10.3, Neut % (Auto) 75.3, Lymph % (Auto) 14.7, [place] % (Auto) 7.7, Eos % (Auto) 1.3, Baso % (Auto) 0.6, Neut # (Auto) 5.1, Lymph # (Auto) 1.0, [place] # (Auto) 0.5, Eos # (Auto) 0.1, Baso # (Auto) 0.0, Sodium 134 L, Potassium 3.2 L, Chloride 98, Carbon Dioxide 27, Anion Gap 12.2, BUN 31 H, Creatinine 2.30 H, Estimated Creat Clear 32, Estimated GFR 28 L, Est GFR ( Amer) 34 L, Glucose 252 H D, Calcium 10.1, Magnesium 2.2 D, Total Bilirubin 0.9, AST 29, ALT 27, Alkaline Phosphatase 87, Troponin I 0.11 H, Total Protein 7.4, Albumin 4.2 D, Globulin 3.2, Albumin/Globulin Ratio 1.3, Triglycerides 91, Cholesterol 109 L, LDL Cholesterol Direct 47.24 L, VLDL Cholesterol 18, HDL Cholesterol 35 L, Cholesterol/HDL Ratio 3.1 12/23/24 06:45: D-Dimer 0.87 H 12/23/24 12:00: POC Glucose 389 H* 12/23/24 17:16: POC Glucose 256 H I & O for Labs for Last 24 Hours: Intake & Output 12/20/24 12/21/24 12/22/24 12/23/24 23:59 23:59 23:59 23:59 Intake Total 1280 / 1280 Output Total 0 / 0 1050 / 1050 Balance 0 / 200 230 / 230 Weight 80.059 kg 78.109 kg Microbiology Reports for the Last 24 Hours: Microbiology 12/22/24 18:30 Blood Blood Culture - Preliminary NO GROWTH AFTER 24 HOURS 12/22/24 18:27 Blood Blood Culture - Preliminary NO GROWTH AFTER 24 HOURS Constitutional: Present no acute distress, average body habitus, chronically ill appearing and cooperative Head: Present atraumatic and normocephalic ENT: Present normal exam Respiratory: Present crackles (In dependent portions of lung) and normal respiratory effort; Absent rhonchi or wheezes Cardiac: Present Reg Rate and Rhythm GI: Present soft, distention and normal bowel sounds; Absent tenderness Extremities: Present normal inspection and full ROM; Absent edema Skin: Present intact; Absent erythema Neuro: Present Grossly Intact, alert, awake, oriented x 3 and moves all extremities Assessment and Plan *Assessment and plan (1) Acute on chronic HFrEF (heart failure with reduced ejection fraction): Status: Acute Category: Medical Code(s): I50.23 - Acute on chronic systolic (congestive) heart failure (2) Hx of CABG: Status: Acute Category: Surgical Code(s): Z95.1 - Presence of aortocoronary bypass graft (3) Renal artery stenosis: Status: Acute Category: Medical Code(s): I70.1 - Atherosclerosis of renal artery (4) DM type 2 (diabetes mellitus, type 2): Status: Acute Qualifiers: Diabetes mellitus intermediate frame tender insulin use: without group home use Diabetes mellitus complication status: with other specified complication Qualified Code(s): E11.69 - Type 2 diabetes mellitus with other specified complication Category: Medical Code(s): E11.9 - Type 2 diabetes mellitus without complications (5) Elevated troponin: Status: Acute Category: Medical Code(s): R79.89 - Other specified abnormal findings of blood chemistry (6) Sinus tachycardia: Status: Acute Category: Medical Code(s): R00.0 - Tachycardia, unspecified (7) Calf cramp: Status: Acute Category: Medical Code(s): R25.2 - Cramp and spasm Plan Mr. Carrasco is a 74-year-old male with history of HFrEF, presents with acute exacerbation. BNP elevated at 17,000. Bilateral effusions on chest imaging with shortness of breath with exertion. Previous echo from 3 years ago with EF reduced. Significant diastolic dysfunction. Supposed to take Bumex at home, not having optimal response. Responding to IV diuresis during admission. Showing improvement. Cardiology consulted and assisting with care. Continue to diurese overnight, anticipate discharge tomorrow. Problems addressed as follows: Acute on Chronic HFrEF Volume overload Paroxysmal A-fib HTN - ProBNP 17k with bilateral pleural effusions and shortness of breath with exertion. Cardiology consulted to assist with care. Evaluated today, recommend continuing Bumex 1 mg IV twice daily. - Continue aspirin 81 mg daily, Lipitor 80 mg nightly, dapagliflozin 10 mg daily. -Continue metoprolol succinate 25 mg daily, isosorbide dinitrate 20 mg every 8 hours, and hydralazine 25 mg 3 times a day. Hypertension -Repeat echo pending -Not currently on anticoagulation for A-fib, will consider NOAC prior to discharge CAD s/p CABG 2017 and LUKE 2021 - anginal equivalent RIDDLE here with elevated Trop at 0.09 and 0.11 - ECHO pending -Continue aspirin, metoprolol, statin as above - consider pre-discharge [facility] versus outpatient follow-up per cardiology recommendation CKD-IV with JODIE - Cr 2.3 BUN 31. Appears at baseline. -Repeat CBC, CMP, magnesium ordered for the morning. -Potassium 3.2, replacing per protocol Diabetes - poorly controlled with A1C 9.2. Continue empagliflozin. Continue sliding scale insulin with fingersticks ACHS Full code Lovenox 40 mg daily Diabetic diet
[2024-12-23] MEDS: ATORVASTATIN 40MG TABLET 80 MG PO (20:54)
[2024-12-23] MEDS: PANTOPRAZOLE 40MG TABLET 40 MG PO (20:55)
[2024-12-23] MEDS: SODIUM CHLORIDE NASAL SPRAY 44ML NS (20:55)
[2024-12-24] VITALS (9 sets, daily range): BP systolic 104–155; BP diastolic 62–91; PULSE 83–98; RESP 16–20; TEMP 36.4–36.7; O2SAT 95–100; BMI 25.4
[2024-12-24] MEDS: CYCLOBENZAPRINE 10MG TABLET 10 MG PO ×2 (03:25→18:15)
--- NOTE | 2024-12-24 05:31 | PC.NURSE ---
Pt A&OX4 and has tolerated room air. Lung sounds clear and bowel sounds active. He has ambulated to the bathroom with standby assist. He did complain of cramps in his right leg and was medicated per MAR. No other complaints at this time, call light within reach.
[2024-12-24] MEDS: humaLOG 100 UNITS/ML 10ML VIAL (SSI) SUBCUT ×4 (05:48→20:15)
[2024-12-24] MEDS: ISOSORBIDE DINITRATE 20 MG TABLET PO ×3 (05:48→20:13)
[2024-12-24 06:21] LABS: POC Glucose,Bedside 272 (70-110)
[2024-12-24] MEDS: LEVALBUTEROL 1.25MG/3ML NEB 1.25 MG IH ×4 (06:25→23:44)
[2024-12-24 06:28] LABS: Basophils % 0.4 % (0.1-2.0); Eosinophils # 0.1 K/mm3 (0.0-0.4); Eosinophils % 1.5 % (0.1-12.0); Hematocrit 34.7 % (42.0-52.0); Hemoglobin 11.5 g/dL (14.1-18.0); Lymphocytes # 1.2 K/mm3 (0.7-4.5); Lymphocytes % 17.2 % (10-50); Mean Corpuscular HGB Conc 33.1 g/dL (31.8-35.4); Mean Corpuscular Hemoglobin 28.5 pg (27.0-31.2); Mean Corpuscular Volume 85.9 fl (80-94); Mean Platelet Volume 10.4 fl (7.4-10.4); Monocytes # 0.7 K/mm3 (0.1-1.0); Monocytes % 9.8 % (1.7-9.3); Neutrophils # 5.1 K/mm3 (1.8-7.8); Neutrophils % 70.7 % (37.0-80.0); Platelet Count 229 K/mm3 (142-424); Red Blood Count 4.04 M/mm3 (4.60-6.20); Red Cell Distribution Width 15.8 % (11.5-17.5); White Blood Count 7.2 K/mm3 (4.8-10.8)
[2024-12-24 07:08] LABS: Alanine Aminotransferase 27 U/L (12-78); Albumin Level 3.9 g/dl (3.5-5.0); Albumin/Globulin Ratio 1.3 (1.1-1.8); Alkaline Phosphatase 83 U/L (38-126); Anion Gap 13.8 mEq/L (5-15); Aspartate Amino Transferase 27 U/L (17-59); Bilirubin,Total 0.9 mg/dl (0.2-1.3); Blood Urea Nitrogen 38 mg/dl (9-20); Calcium 9.1 mg/dl (8.4-10.2); Carbon Dioxide 24 mmol/L (22.0-30.0); Chloride 99 mmol/L (98-107); Creatinine Clearance Estimated 27 mL/min (50-200); Estimated Glomerular Filt Rate 23 ml/min (>60); GFR (African American) 28 ML/MIN (>60); Glucose 252 mg/dl (74-100); Magnesium 1.9 mg/dl (1.6-2.3); Potassium 3.8 mmoL/L (3.5-5.1); Sodium 133 mmol/L (136-145); Total Protein,Serum 6.9 g/dl (6.3-8.2)
[2024-12-24 07:13] LABS: NT Pro Brain Natriuretic Pep. 14800 pg/mL (0-125)
--- NOTE | 2024-12-24 07:13 | XR_ITS ---
FINAL REPORT CLINICAL HISTORY: CHF, COPD COMPARISON: 08/08/2022 FINDINGS: No acute pulmonary opacity is present. There is no evidence of effusion or pneumothorax. Patient is status post CABG. There is mild cardiomegaly, stable. IMPRESSION: No acute findings. Reviewed, Interpreted and Dictated by Devika Johnson MD Transcribed by Cristina Gandara Authenticated and [facility]
[2024-12-24] MEDS: ASPIRIN EC 81MG TABLET 81 MG PO (08:45)
[2024-12-24] MEDS: DAPAGLIFLOZIN PROPANEDIOL 10 MG TABLET PO (08:46)
[2024-12-24] MEDS: METOPROLOL SUCCINATE XL 25MG TABLET 25 MG PO (08:46)
[2024-12-24] MEDS: BUMETANIDE 1MG/4ML VIAL 1 MG IV ×2 (08:46→15:26)
[2024-12-24] MEDS: ENOXAPARIN 40MG/0.4ML SYRINGE 40 MG SUBCUT (08:47)
[2024-12-24 11:31] LABS: POC Glucose,Bedside 378 (70-110)
[2024-12-24] MEDS: HYDRALAZINE HCL 25MG TABLET 25 MG PO ×2 (12:27→20:13)
--- NOTE | 2024-12-24 12:27 | EXP.CARD.PN ---
Subjective Subjective Date: 12/24/24 Time: 09:30 Interval history: More alert today, SOA improved, denies LE Edema and CP. Exam Data for Last 24 hours Vital signs and Labs for Last 24 Hours: Temp Pulse Resp BP Pulse Ox O2 Del Method 97.6 F 94 H 16 104/62 L 97 Room Air 12/24/24 08:00 12/24/24 08:00 12/24/24 08:00 12/24/24 08:00 12/24/24 08:00 12/24/24 11:00 Laboratory Results - last 24 hr 12/23/24 17:16: POC Glucose 256 H 12/24/24 05:45: WBC 7.2, RBC 4.04 L, Hgb 11.5 L, Hct 34.7 L, MCV 85.9, MCH 28.5, MCHC 33.1, RDW 15.8, Plt Count 229, MPV 10.4, Neut % (Auto) 70.7, Lymph % (Auto) 17.2, [place] % (Auto) 9.8 H, Eos % (Auto) 1.5, Baso % (Auto) 0.4, Neut # (Auto) 5.1, Lymph # (Auto) 1.2, [place] # (Auto) 0.7, Eos # (Auto) 0.1, Baso # (Auto) 0.0, Sodium 133 L, Potassium 3.8, Chloride 99, Carbon Dioxide 24, Anion Gap 13.8, BUN 38 H, Creatinine 2.70 H, Estimated Creat Clear 27, Estimated GFR 23 L, Est GFR ( Amer) 28 L, Glucose 252 H, Calcium 9.1, Magnesium 1.9 D, Total Bilirubin 0.9, AST 27, ALT 27, Alkaline Phosphatase 83, NT-Pro-B Natriuret Pep 37739 H, Total Protein 6.9, Albumin 3.9, Globulin 3.0, Albumin/Globulin Ratio 1.3 12/24/24 05:47: POC Glucose 272 H 12/24/24 11:24: POC Glucose 378 H* I & O for Last 24 hours: Intake & Output 12/21/24 12/22/24 12/23/24 12/24/24 23:59 23:59 23:59 23:59 Intake Total 1280 / 1520 520 / 520 Output Total 0 / 0 1450 / 1775 1500 / 1500 Balance 0 / 200 -170 / -255 -980 / -980 Weight 176 lb 8 oz 172 lb 3.2 oz 172 lb 2.896 oz Microbiology Reports for the Last 24 Hours: Microbiology 12/22/24 18:30 Blood Blood Culture - Preliminary NO GROWTH AFTER 24 HOURS 12/22/24 18:27 Blood Blood Culture - Preliminary NO GROWTH AFTER 24 HOURS Constitutional Constitutional: no acute distress and cooperative *Routine HEENT Exam Eye: Present PERRL *Routine Respiratory Exam Respiratory: Present CTA bilaterally; Absent accessory muscle use, wheezes or crackles *Routine Cardiovascular Exam Cardiovascular: Present RRR, Normal S1 and Normal S2; Absent murmur, gallop or rubs *Routine Abdominal Exam Abdominal: Present soft; Absent tenderness *Routine Extremities Exam Extremities: Present pulses intact; Absent cyanosis or edema *Routine Skin Exam Skin: Present intact; Absent erythema or wounds *Routine Neurological Exam Neurological: Present alert and oriented X3 Routine Psychiatric Exam Psychiatric: Present cooperative Progress Note: A&P Assessment and plan (1) Acute on chronic HFrEF (heart failure with reduced ejection fraction): Status: Acute (2) Hx of CABG: Status: Acute (3) Renal artery stenosis: Status: Acute (4) DM type 2 (diabetes mellitus, type 2): Status: Acute (5) Elevated troponin: Status: Acute (6) Sinus tachycardia: Status: Acute (7) Calf cramp: Status: Acute Assessment and Plan Assessment and Plan for All Diagnoses:: Acute on Chronic HFrEF - ProBNP 17k with bilateral pleural effusions and RIDDLE - ECHO 2021: EF 42% and grade 2 diastolic dysfunction - pt takes Bumex 0.5mg BID at home and was given IV Lasix 60mg in ER last night - start Bumex 1mg BID today and start strict I/O - slow diuresis given CKD-IV - resume BB and SGLT-2 - No ARNI/ARB due to CKD, will use Hydralazine/Imdur - repeat ECHO here shows EF down to 30% - repeat ProBNP down to 14,800 - pt agreeable to LifeVest PAF - per pt report in September at [facility] - here - not on OAC, will need to verify PAF before recommending - resume BB NSTEMI, CAD s/p CABG 2017 and LUKE 2021 - anginal equivalent RIDDLE here with elevated Trop at 0.09 and 0.11 and reduced EF at 30% with vol overload - resume ASA, Statin, BB - discussed LHC with patient. His Cr is up to 2.7 and will need improvement before we consider LHC. He would like to stay inpatient a few days, try diuresing further and get LHC and LifeVest Friday CKD-IV with JODIE - Cr 2.4 on arrival, up to 2.7 - Renal Duplex 08/2022 - high grade left JODIE - cont daily labs, dose adjust meds, repeat renal artery duplex here suggests >50% stenosis COPD with Pulm Fibrosis - O2 92% on room air DM-II - poorly controlled with A1C 9.2 and heavy microalbuminuria - cont SGLT-2 - glucose control per primary service HLD - well controlled with LDL 47 01/03 CV Summary: Pt presented with HFrEF exacerbation and newly reduced EF down to 30% with elevated Trop. Given his hx of CABG/LUKE he needs LHC to eval for worsening ischemia and is agreeable to do so however his Cr is up to 2.7 and we'd like him closer to baseline prior to LHC with contrast. Since pt presented with vol overload I presume his Cr is from that and not dehydration so will increase Bumex to 2mg qam and 1mg qpm and recheck labs tomorrow and Friday. Will place order for LifeVest now.
--- NOTE | 2024-12-24 13:46 | P.PN_ITS ---
Subjective *Date: 12/24/24 *Time: 13:46 Interval history: Feeling better this morning, stable on room air. Echo returned showing reduced ejection fraction less than 35%. Will need LifeVest prior to discharge home. Cardiology recommending heart cath however given his kidney dysfunction, will need to wait till Friday. Patient would prefer to stay inpatient and then go home and come back as an outpatient due to his kidney dysfunction and acute worsening of his heart failure. Tolerating p.o. intake. Afebrile. Alert and oriented x 3 Medical Exam Vital signs and Labs for Last 24 Hours: Vital Signs Temp Pulse Pulse Resp BP Pulse Ox O2 Del Method 12/24/24 12:44 Room Air 12/24/24 12:00 97.6 F 98 H 20 155/91 H 98 Room Air 12/24/24 11:00 Room Air 12/24/24 09:00 Room Air 12/24/24 08:00 Room Air 12/24/24 08:00 97.6 F 94 H 16 104/62 L 97 Room Air 12/24/24 06:40 Room Air 12/24/24 06:26 90 12/24/24 06:26 90 12/24/24 06:26 96 Room Air 12/24/24 05:00 Room Air 12/24/24 04:00 98.1 F 90 16 140/80 100 Room Air 12/24/24 03:00 Room Air 12/24/24 01:00 Room Air 12/24/24 00:00 97.5 F L 92 H 16 109/63 L 99 Room Air 12/23/24 23:47 93 H 12/23/24 23:47 87 12/23/24 23:47 98 Room Air 12/23/24 23:00 Room Air 12/23/24 21:00 Room Air 12/23/24 20:00 Room Air 12/23/24 20:00 97.8 F 84 16 107/69 L 98 Room Air 12/23/24 18:56 Room Air 12/23/24 18:25 82 12/23/24 18:25 83 12/23/24 18:25 95 Room Air 12/23/24 17:00 Room Air 12/23/24 16:00 98.2 F 100 H 19 130/68 99 Room Air 12/23/24 15:00 Room Air Intake and Output 0312/24/24 12/24/24 23:59 07:59 15:59 Intake Total 360 / 1520 240 / 520 280 / 520 Output Total 850 / 1775 800 / 1500 700 / 1500 Balance -490 / -255 -560 / -980 -420 / -980 Intake: Intake, Oral Amount 360 / 1520 240 / 520 280 / 520 Output: Output, Urine Amount 850 / 1775 800 / 1500 700 / 1500 Other: Number of Unmeasured Voids 1 1 Number of Bowel Movements 1 Weight 78.1 kg Patient Weight 12/24/24 23:59 Weight 78.1 kg Laboratory Results - last 24 hr 12/23/24 17:16: POC Glucose 256 H 12/24/24 05:45: WBC 7.2, RBC 4.04 L, Hgb 11.5 L, Hct 34.7 L, MCV 85.9, MCH 28.5, MCHC 33.1, RDW 15.8, Plt Count 229, MPV 10.4, Neut % (Auto) 70.7, Lymph % (Auto) 17.2, [place] % (Auto) 9.8 H, Eos % (Auto) 1.5, Baso % (Auto) 0.4, Neut # (Auto) 5. 1, Lymph # (Auto) 1.2, [place] # (Auto) 0.7, Eos # (Auto) 0.1, Baso # (Auto) 0.0, Sodium 133 L, Potassium 3.8, Chloride 99, Carbon Dioxide 24, Anion Gap 13.8, BUN 38 H, Creatinine 2.70 H, Estimated Creat Clear 27, Estimated GFR 23 L, Est GFR ( Amer) 28 L, Glucose 252 H, Calcium 9.1, Magnesium 1.9 D, Total Bilirubin 0.9, AST 27, ALT 27, Alkaline Phosphatase 83, NT-Pro-B Natriuret Pep 09953 H, Total Protein 6.9, Albumin 3.9, Globulin 3.0, Albumin/Globulin Ratio 1.3 12/24/24 05:47: POC Glucose 272 H 12/24/24 11:24: POC Glucose 378 H* I & O for Labs for Last 24 Hours: Intake & Output 12/21/24 12/22/24 12/23/24 12/24/24 23:59 23:59 23:59 23:59 Intake Total 1280 / 1520 520 / 520 Output Total 0 / 0 1450 / 1775 1500 / 1500 Balance 0 / 200 -170 / -255 -980 / -980 Weight 80.059 kg 78.109 kg 78.1 kg Microbiology Reports for the Last 24 Hours: Microbiology 12/22/24 18:30 Blood Blood Culture - Preliminary NO GROWTH AFTER 24 HOURS 12/22/24 18:27 Blood Blood Culture - Preliminary NO GROWTH AFTER 24 HOURS Constitutional: Present no acute distress, average body habitus, chronically ill appearing and cooperative Head: Present atraumatic and normocephalic ENT: Present normal exam Respiratory: Present normal respiratory effort; Absent rhonchi, wheezes or crackles Cardiac: Present Reg Rate and Rhythm GI: Present soft, distention and normal bowel sounds; Absent tenderness Extremities: Present normal inspection and full ROM; Absent edema Skin: Present intact; Absent erythema Neuro: Present Grossly Intact, alert, awake, oriented x 3 and moves all extremities Assessment and Plan *Assessment and plan (1) Acute on chronic HFrEF (heart failure with reduced ejection fraction): Status: Acute Category: Medical Code(s): I50.23 - Acute on chronic systolic (congestive) heart failure (2) Hx of CABG: Status: Acute Category: Surgical Code(s): Z95.1 - Presence of aortocoronary bypass graft (3) Renal artery stenosis: Status: Acute Category: Medical Code(s): I70.1 - Atherosclerosis of renal artery (4) DM type 2 (diabetes mellitus, type 2): Status: Acute Qualifiers: Diabetes mellitus 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 Carrasco is a 74-year-old male with history of HFrEF, presents with acute exac erbation. BNP elevated at 17,000. Bilateral effusions on chest imaging with shortness of breath with exertion. Previous echo from 3 years ago with EF reduced. Significant diastolic dysfunction. Supposed to take Bumex at home, not having optimal response. Responding to IV diuresis during admission. Showing improvement. Cardiology consulted and assisting with care. Continue to diurese over the weekend. Heart failure reduced on echo, necessitating LifeVest. Cardiology recommending heart cath but would like to see kidney function improve. Will need to wait till Friday. Necessitating management over the weekend inpatient. Problems addressed as follows: Acute on Chronic HFrEF Volume overload Paroxysmal A-fib HTN - ProBNP 17k with bilateral pleural effusions and shortness of breath with exertion on admission, BNP improved to 14,000 today. Discussed case with cardiology, recommend heart cath on Friday. Kidney function worse today with creatinine 2.7, baseline 2.0-2.2. Would like to be at baseline prior to cath with contrast due to risk for kidney injury. -Echo with EF approximately 30%. Will need LifeVest prior to discharge home. -Negative fluid balance since admission. Stable on room air. continuing Bumex 2mg QAM, 1mg QPM. - Continue aspirin 81 mg daily, Lipitor 80 mg nightly, dapagliflozin 10 mg daily. -Continue metoprolol succinate 25 mg daily, isosorbide dinitrate 20 mg every 8 hours, and hydralazine 25 mg 3 times a day. Hypertension -Not currently on anticoagulation for A-fib, will consider NOAC prior to discharge CAD s/p CABG 2017 and LUKE 2021 - anginal equivalent RIDDLE here with elevated Trop at 0.09 and 0.11 -Continue aspirin, metoprolol, statin as above - consider pre-discharge C versus outpatient follow-up per cardiology recommendation CKD-IV with JODIE -Creatinine worse today at 2.7, BUN increased at 38. Potassium 3.8, magnesium 1.9. Kidney function worsening from baseline. -Repeat CBC, CMP, magnesium ordered for the morning. Diabetes - poorly controlled with A1C 9.2. Continue empagliflozin. Continue sliding scale insulin with fingersticks ACHS. Morning glucose 252, increased to high intensity sliding scale Full code Lovenox 40 mg daily Diabetic diet
[2024-12-24 15:40] LABS: POC Glucose,Bedside 201 (70-110)
--- NOTE | 2024-12-24 16:05 | PC.NURSE ---
PT IS RESTING IN BED. ALERT AND ORIENTED X4. PT HAS TOLERATED AMBULATING IN THE ORTIZ WITH WALKER X2 THIS SHIFT. LUNG SOUNDS DIMINISHED. ABDOMEN SOFT/ROUND/NON TENDER WITH ACTIVE BOWEL SOUNDS. NO SWELLING NOTED TO BLE. WILL CONTINUE TO MONITOR.
--- NOTE | 2024-12-24 18:01 | PC.NURSE ---
care provided by student diego gabriel under my supervision
[2024-12-24] MEDS: ATORVASTATIN 40MG TABLET 80 MG PO (20:13)
[2024-12-24] MEDS: PANTOPRAZOLE 40MG TABLET 40 MG PO (20:13)
[2024-12-24] MEDS: INSULIN GLARGINE 100 UNITS/ML 3ML FLEXPEN 20 UNIT SUBCUT (20:14)
[2024-12-24 20:24] LABS: POC Glucose,Bedside 288 (70-110)
[2024-12-25] VITALS (11 sets, daily range): BP systolic 121–136; BP diastolic 71–81; PULSE 72–101; RESP 16–18; TEMP 36.4–36.7; O2SAT 96–99; BMI 25.4
[2024-12-25] MEDS: CYCLOBENZAPRINE 10MG TABLET 10 MG PO ×3 (00:11→20:12)
[2024-12-25] MEDS: humaLOG 100 UNITS/ML 10ML VIAL (SSI) SUBCUT ×4 (05:46→20:13)
[2024-12-25] MEDS: ISOSORBIDE DINITRATE 20 MG TABLET PO ×3 (05:46→20:13)
[2024-12-25 06:00] LABS: POC Glucose,Bedside 225 (70-110)
--- NOTE | 2024-12-25 06:00 | PC.NURSE ---
Pt is A&Ox4. Pt remains on telemetry with occasional PVCs. Pt denies general pain however c/o cramps in legs and hands, Pt was treated per MAR. Pt has rested well and has had no acute changes to note this shift.
[2024-12-25] MEDS: LEVALBUTEROL 1.25MG/3ML NEB 1.25 MG IH ×3 (06:12→18:45)
[2024-12-25 07:57] LABS: Basophils % 0.7 % (0.1-2.0); Eosinophils # 0.2 K/mm3 (0.0-0.4); Eosinophils % 2.6 % (0.1-12.0); Hematocrit 36.6 % (42.0-52.0); Hemoglobin 11.9 g/dL (14.1-18.0); Lymphocytes # 1.5 K/mm3 (0.7-4.5); Lymphocytes % 24.3 % (10-50); Mean Corpuscular HGB Conc 32.5 g/dL (31.8-35.4); Mean Corpuscular Hemoglobin 28.6 pg (27.0-31.2); Mean Platelet Volume 10.3 fl (7.4-10.4); Monocytes # 0.6 K/mm3 (0.1-1.0); Monocytes % 10.4 % (1.7-9.3); Neutrophils # 3.8 K/mm3 (1.8-7.8); Neutrophils % 61.7 % (37.0-80.0); Platelet Count 254 K/mm3 (142-424); Red Blood Count 4.16 M/mm3 (4.60-6.20); Red Cell Distribution Width 15.9 % (11.5-17.5); White Blood Count 6.1 K/mm3 (4.8-10.8)
[2024-12-25 08:26] LABS: Alanine Aminotransferase 30 U/L (12-78); Albumin Level 4.3 g/dl (3.5-5.0); Albumin/Globulin Ratio 1.4 (1.1-1.8); Alkaline Phosphatase 71 U/L (38-126); Anion Gap 12.5 mEq/L (5-15); Aspartate Amino Transferase 29 U/L (17-59); Blood Urea Nitrogen 38 mg/dl (9-20); Calcium 9.4 mg/dl (8.4-10.2); Carbon Dioxide 28 mmol/L (22.0-30.0); Chloride 98 mmol/L (98-107); Creatinine Clearance Estimated 26 mL/min (50-200); Estimated Glomerular Filt Rate 22 ml/min (>60); GFR (African American) 27 ML/MIN (>60); Globulin 3.1 g/dL (1.3-3.2); Glucose 191 mg/dl (74-100); Potassium 3.5 mmoL/L (3.5-5.1); Sodium 135 mmol/L (136-145); Total Protein,Serum 7.4 g/dl (6.3-8.2)
[2024-12-25 08:29] LABS: Magnesium 1.8 mg/dl (1.6-2.3)
[2024-12-25] MEDS: ASPIRIN EC 81MG TABLET 81 MG PO (09:17)
[2024-12-25] MEDS: DAPAGLIFLOZIN PROPANEDIOL 10 MG TABLET PO (09:17)
[2024-12-25] MEDS: ENOXAPARIN 40MG/0.4ML SYRINGE 40 MG SUBCUT (09:17)
[2024-12-25] MEDS: HYDRALAZINE HCL 25MG TABLET 25 MG PO ×3 (09:17→20:12)
[2024-12-25] MEDS: METOPROLOL SUCCINATE XL 25MG TABLET 25 MG PO (09:17)
[2024-12-25] MEDS: BUMETANIDE 1MG/4ML VIAL 2 MG IV (09:17)
--- NOTE | 2024-12-25 09:40 | EXP.ACUTE.PN ---
Subjective *Date: 12/25/24 *Time: 12:37 Interval history: Patient has no acute complaints today. Stable on room air. Diuresing well. Says he feels better. Awaiting cardiology evaluation Friday Medical Exam Vital signs and Labs for Last 24 Hours: Vital Signs Temp Pulse Pulse Resp BP Pulse Ox O2 Del Method 12/25/24 08:55 Room Air 12/25/24 08:00 Room Air 12/25/24 08:00 97.5 F L 94 H 18 123/81 98 Room Air 12/25/24 06:39 Room Air 12/25/24 06:12 93 H 12/25/24 06:12 94 H 12/25/24 05:00 Room Air 12/25/24 04:00 97.5 F L 72 17 121/71 99 Room Air 12/25/24 03:40 90 12/25/24 02:43 Room Air 12/25/24 01:00 Room Air 12/25/24 00:00 80 12/25/24 00:00 97.9 F 90 16 133/78 99 Room Air 12/24/24 23:45 84 12/24/24 23:45 83 12/24/24 23:45 95 Room Air 12/24/24 23:00 Room Air 12/24/24 21:00 Room Air 12/24/24 20:00 Room Air 12/24/24 20:00 90 12/24/24 19:54 97.9 F 90 16 137/70 95 Room Air 12/24/24 18:19 Room Air 12/24/24 16:53 Room Air 12/24/24 16:00 97.7 F 89 16 145/82 H 98 Room Air 12/24/24 15:00 Room Air 12/24/24 12:44 Room Air 12/24/24 12:00 97.6 F 98 H 20 155/91 H 98 Room Air 12/24/24 11:00 Room Air Intake and Output 12/24/24 12/25/24 12/25/24 23:59 07:59 15:59 Intake Total 480 / 1600 360 / 840 480 / 840 Output Total 500 / 2925 1000 / 1000 Balance -20 / -1325 -640 / -160 480 / -160 Intake: Intake, Oral Amount 480 / 1600 360 / 840 480 / 840 Output: Output, Urine Amount 500 / 2925 1000 / 1000 Other: Number of Voids 1 Number of Unmeasured Voids 0 Weight 78.1 kg Patient Weight 12/25/24 23:59 Weight 78.1 kg Laboratory Results - last 24 hr 12/24/24 11:24: POC Glucose 378 H* 12/24/24 15:27: POC Glucose 201 H 12/24/24 20:04: POC Glucose 288 H 12/25/24 05:45: POC Glucose 225 H 12/25/24 06:58: WBC 6.1, RBC 4.16 L, Hgb 11.9 L, Hct 36.6 L, MCV 88.0, MCH 28.6, MCHC 32.5, RDW 15.9, Plt Count 254, MPV 10.3, Neut % (Auto) 61.7, Lymph % (Auto) 24.3, [place] % (Auto) 10.4 H, Eos % (Auto) 2.6, Baso % (Auto) 0.7, Neut # (Auto) 3.8, Lymph # (Auto) 1.5, [place] # (Auto) 0.6, Eos # (Auto) 0.2, Baso # (Auto) 0.0, Sodium 135 L, Potassium 3.5, Chloride 98, Carbon Dioxide 28, Anion Gap 12.5, BUN 38 H, Creatinine 2.80 H, Estimated Creat Clear 26, Estimated GFR 22 L, Est GFR ( Amer) 27 L, Glucose 191 H, Calcium 9.4, Magnesium 1.8, Total Bilirubin 1.0, AST 29, ALT 30, Alkaline Phosphatase 71, Total Protein 7.4, Albumin 4.3 D, Globulin 3.1, Albumin/Globulin Ratio 1.4 I & O for Labs for Last 24 Hours: Intake & Output 12/22/24 12/23/24 12/24/24 12/25/24 23:59 23:59 23:59 23:59 Intake Total 1280 / 1520 1240 / 1600 840 / 840 Output Total 0 / 0 1450 / 1775 2925 / 2925 1000 / 1000 Balance 0 / 200 -170 / -255 -1685 / -1325 -160 / -160 Weight 80.059 kg 78.109 kg 78.1 kg 78.1 kg Microbiology Reports for the Last 24 Hours: Microbiology 12/22/24 18:30 Blood Blood Culture - Preliminary NO GROWTH AFTER 48 HOURS 12/22/24 18:27 Blood Blood Culture - Preliminary NO GROWTH AFTER 48 HOURS Constitutional: Present no acute distress, average body habitus, chronically ill appearing and cooperative Head: Present atraumatic and normocephalic ENT: Present normal exam Respiratory: Present normal respiratory effort; Absent rhonchi, wheezes or crackles Cardiac: Present Reg Rate and Rhythm GI: Present soft, distention and normal bowel sounds; Absent tenderness Extremities: Present normal inspection and full ROM; Absent edema Skin: Present intact; Absent erythema Neuro: Present Grossly Intact, alert, awake, oriented x 3 and moves all extremities Assessment and Plan *Assessment and plan (1) Acute on chronic HFrEF (heart failure with reduced ejection fraction): Status: Acute Category: Medical Code(s): I50.23 - Acute on chronic systolic (congestive) heart failure (2) Hx of CABG: Status: Acute Category: Surgical Code(s): Z95.1 - Presence of aortocoronary bypass graft (3) Renal artery stenosis: Status: Acute Category: Medical Code(s): I70.1 - Atherosclerosis of renal artery (4) DM type 2 (diabetes mellitus, type 2): Status: Acute Qualifiers: 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 Carrasco is a 74-year-old male with history of HFrEF, presents with acute exacerbation. BNP elevated at 17,000. Bilateral effusions on chest imaging with shortness of breath with exertion. Previous echo from 3 years ago with EF reduced. Significant diastolic dysfunction. Supposed to take Bumex at home, not having optimal response. Responding to IV diuresis during admission. Showing improvement. Cardiology consulted and assisting with care. Continue to diurese over the weekend. Heart failure reduced on echo, necessitating LifeVest. Cardiology recommending heart cath but would like to see kidney function improve. Will need to wait till Friday. Necessitating management over the weekend inpatient. Problems addressed as follows: Acute on Chronic HFrEF Volume overload Paroxysmal A-fib HTN - ProBNP 17k with bilateral pleural effusions and shortness of breath with exertion on admission -BUN 38, creatinine 2.8. Baseline 2.0-2.2. Repeat CBC, CMP, magnesium ordered for the morning. -Echo with EF approximately 30%. Will need LifeVest prior to discharge home. -Negative fluid balance since admission. Stable on room air. continuing Bumex 2mg QAM. - Continue aspirin 81 mg daily, Lipitor 80 mg nightly, dapagliflozin 10 mg daily. -Continue metoprolol succinate 25 mg daily, isosorbide dinitrate 20 mg every 8 hours, and hydralazine 25 mg 3 times a day. Hypertension -Not currently on anticoagulation for A-fib, will consider NOAC prior to discharge CAD s/p CABG 2017 and LUKE 2021 - anginal equivalent RIDDLE here with elevated Trop at 0.09 and 0.11 -Continue aspirin, metoprolol, statin as above - consider pre-discharge LHC versus outpatient follow-up per cardiology recommendation CKD-IV with JODIE -Creatinine today at 2.8, BUN 38. Potassium 3.5, magnesium 1.8. Replace potassium with 40 mEq orally once -Repeat CBC, CMP, magnesium ordered for the morning. Diabetes - poorly controlled with A1C 9.2. Continue empagliflozin. Continue sliding scale insulin with fingersticks ACHS. Morning glucose 191, increased to high intensity sliding scale Full code Lovenox 40 mg daily Diabetic diet
[2024-12-25] MEDS: POTASSIUM CHLORIDE 20MEQ TAB 40 MEQ PO (10:13)
[2024-12-25 10:33] LABS: POC Glucose,Bedside 358 (70-110)
--- NOTE | 2024-12-25 14:18 | PC.NURSE ---
Aox 4, up with assistance times one with walker, fsbg achs, ON RA, needs lifevest at d/c, bed alam active.
[2024-12-25 15:59] LABS: POC Glucose,Bedside 346 (70-110)
[2024-12-25 20:07] LABS: POC Glucose,Bedside 276 (70-110)
[2024-12-25] MEDS: ATORVASTATIN 40MG TABLET 80 MG PO (20:12)
[2024-12-25] MEDS: PANTOPRAZOLE 40MG TABLET 40 MG PO (20:12)
[2024-12-25] MEDS: INSULIN GLARGINE 100 UNITS/ML 3ML FLEXPEN 30 UNIT SUBCUT (20:13)
[2024-12-26] VITALS (9 sets, daily range): BP systolic 118–184; BP diastolic 54–90; PULSE 80–101; RESP 16–18; TEMP 36.4–36.6; O2SAT 96–99; BMI 25.2
[2024-12-26 05:21] LABS: POC Glucose,Bedside 200 (70-110)
[2024-12-26] MEDS: humaLOG 100 UNITS/ML 10ML VIAL (SSI) SUBCUT ×4 (05:22→20:35)
[2024-12-26] MEDS: ISOSORBIDE DINITRATE 20 MG TABLET PO ×3 (05:22→20:35)
--- NOTE | 2024-12-26 05:31 | PC.NURSE ---
patient is alert and oriented x4, ambulates in room with walker and standby assistance, complained of cramps in hands and legs medicated per mar, tolerated RA with O2 sats 96-97%, patient remains NSR on telemetry with PVCs, call button in reach
[2024-12-26] MEDS: LEVALBUTEROL 1.25MG/3ML NEB 1.25 MG IH ×2 (06:29→11:05)
[2024-12-26 07:41] LABS: Basophils # 0.1 K/mm3 (0-0.2); Basophils % 0.8 % (0.1-2.0); Eosinophils # 0.2 K/mm3 (0.0-0.4); Eosinophils % 3.6 % (0.1-12.0); Hematocrit 38.3 % (42.0-52.0); Hemoglobin 12.5 g/dL (14.1-18.0); Lymphocytes # 1.3 K/mm3 (0.7-4.5); Lymphocytes % 20.2 % (10-50); Mean Corpuscular HGB Conc 32.6 g/dL (31.8-35.4); Mean Corpuscular Hemoglobin 28.3 pg (27.0-31.2); Mean Corpuscular Volume 86.8 fl (80-94); Mean Platelet Volume 10.5 fl (7.4-10.4); Monocytes # 0.7 K/mm3 (0.1-1.0); Monocytes % 11.4 % (1.7-9.3); Neutrophils # 4.1 K/mm3 (1.8-7.8); Neutrophils % 63.5 % (37.0-80.0); Platelet Count 274 K/mm3 (142-424); Red Blood Count 4.41 M/mm3 (4.60-6.20); Red Cell Distribution Width 15.9 % (11.5-17.5); White Blood Count 6.4 K/mm3 (4.8-10.8)
[2024-12-26 07:56] LABS: Alanine Aminotransferase 24 U/L (12-78); Albumin Level 4.1 g/dl (3.5-5.0); Albumin/Globulin Ratio 1.3 (1.1-1.8); Alkaline Phosphatase 82 U/L (38-126); Anion Gap 12.3 mEq/L (5-15); Aspartate Amino Transferase 25 U/L (17-59); Bilirubin,Total 1.1 mg/dl (0.2-1.3); Blood Urea Nitrogen 40 mg/dl (9-20); Carbon Dioxide 27 mmol/L (22.0-30.0); Chloride 98 mmol/L (98-107); Creatinine Clearance Estimated 27 mL/min (50-200); Estimated Glomerular Filt Rate 23 ml/min (>60); GFR (African American) 28 ML/MIN (>60); Globulin 3.1 g/dL (1.3-3.2); Glucose 274 mg/dl (74-100); Potassium 4.3 mmoL/L (3.5-5.1); Sodium 133 mmol/L (136-145); Total Protein,Serum 7.2 g/dl (6.3-8.2)
[2024-12-26 07:58] LABS: Magnesium 1.7 mg/dl (1.6-2.3)
[2024-12-26] MEDS: BUMETANIDE 1MG/4ML VIAL 2 MG IV (09:06)
[2024-12-26] MEDS: HYDRALAZINE HCL 25MG TABLET 25 MG PO ×3 (09:06→20:35)
[2024-12-26] MEDS: ENOXAPARIN 30MG/0.3ML SYRINGE 30 MG SUBCUT (09:06)
[2024-12-26] MEDS: METOPROLOL SUCCINATE XL 25MG TABLET 25 MG PO (09:06)
[2024-12-26] MEDS: DAPAGLIFLOZIN PROPANEDIOL 10 MG TABLET PO (09:06)
[2024-12-26] MEDS: ASPIRIN EC 81MG TABLET 81 MG PO (09:06)
[2024-12-26 10:36] LABS: POC Glucose,Bedside 360 (70-110)
--- NOTE | 2024-12-26 12:12 | EXP.ACUTE.PN ---
Subjective *Date: 12/26/24 *Time: 12:12 Interval history: Patient has no acute complaints today. Stable on room air. Diuresing well. Says he feels better. Awaiting cardiology evaluation Friday Medical Exam Vital signs and Labs for Last 24 Hours: Vital Signs Temp Pulse Pulse Resp BP Pulse Ox O2 Del Method 12/26/24 12:02 Room Air 12/26/24 12:00 97.7 F 100 H 18 146/81 H 99 Room Air 12/26/24 11:05 90 12/26/24 11:05 90 12/26/24 11:05 96 Room Air 12/26/24 09:51 Room Air 12/26/24 08:09 Room Air 12/26/24 08:00 Room Air 12/26/24 08:00 97.6 F 101 H 16 118/70 96 Room Air 12/26/24 06:35 Room Air 12/26/24 06:30 91 H 12/26/24 06:30 87 12/26/24 06:30 96 Room Air 12/26/24 05:00 Room Air 12/26/24 04:00 80 12/26/24 04:00 97.8 F 92 H 18 140/90 96 Room Air 12/26/24 03:00 Room Air 12/26/24 01:00 Room Air 12/26/24 00:00 80 12/26/24 00:00 97.6 F 94 H 18 128/70 96 Room Air 12/25/24 23:00 Room Air 12/25/24 21:00 Room Air 12/25/24 20:00 90 12/25/24 20:00 Room Air 12/25/24 19:56 97.7 F 94 H 125/72 97 Room Air 12/25/24 19:06 90 12/25/24 19:05 90 12/25/24 17:53 Room Air 12/25/24 16:00 97.8 F 95 H 18 136/79 97 Room Air 12/25/24 16:00 90 12/25/24 14:07 Room Air Intake and Output 12/25/24 12/26/24 12/26/24 23:59 07:59 15:59 Intake Total 1500 / 2850 240 / 720 480 / 720 Output Total 600 / 1300 700 / 1300 Balance 1500 / -227 -360 / -580 -220 / -580 Intake: Intake, Oral Amount 1500 / 2850 240 / 720 480 / 720 Output: Output, Urine Amount 600 / 1300 700 / 1300 Other: Number of Unmeasured Voids 200 0 Weight 77.337 kg Patient Weight 12/26/24 23:59 Weight 77.337 kg Laboratory Results - last 24 hr 12/25/24 15:51: POC Glucose 346 H* 12/25/24 20:00: POC Glucose 276 H 12/26/24 05:14: POC Glucose 200 H 12/26/24 06:25: WBC 6.4, RBC 4.41 L, Hgb 12.5 L, Hct 38.3 L, MCV 86.8, MCH 28.3, MCHC 32.6, RDW 15.9, Plt Count 274, MPV 10.5 H, Neut % (Auto) 63.5, Lymph % (Auto) 20.2, [place] % (Auto) 11.4 H, Eos % (Auto) 3.6, Baso % (Auto) 0.8, Neut # (Auto) 4.1, Lymph # (Auto) 1.3, [place] # (Auto) 0.7, Eos # (Auto) 0.2, Baso # (Auto) 0.1, Sodium 133 L, Potassium 4.3 D, Chloride 98, Carbon Dioxide 27, Anion Gap 12.3, BUN 40 H, Creatinine 2.70 H, Estimated Creat Clear 27, Estimated GFR 23 L, Est GFR ( Amer) 28 L, Glucose 274 H D, Calcium 10.0, Magnesium 1.7, Total Bilirubin 1.1, AST 25, ALT 24, Alkaline Phosphatase 82, Total Protein 7.2, Albumin 4.1, Globulin 3.1, Albumin/Globulin Ratio 1.3 12/26/24 10:26: POC Glucose 360 H* I & O for Labs for Last 24 Hours: Intake & Output 12/23/24 12/24/24 12/25/24 12/26/24 23:59 23:59 23:59 23:59 Intake Total 1280 / 1520 1240 / 1600 2610 / 2850 720 / 720 Output Total 1450 / 1775 2925 / 2925 2477 / 3077 1300 / 1300 Balance -170 / -255 -1685 / -1325 133 / -227 -580 / -580 Weight 78.109 kg 78.1 kg 78.1 kg 77.337 kg Constitutional: Present no acute distress, average body habitus, chronically ill appearing and cooperative Head: Present atraumatic and normocephalic ENT: Present normal exam Respiratory: Present normal respiratory effort; Absent rhonchi, wheezes or crackles Cardiac: Present Reg Rate and Rhythm GI: Present soft, distention and normal bowel sounds; Absent tenderness Extremities: Present normal inspection and full ROM; Absent edema Skin: Present intact; Absent erythema Neuro: Present Grossly Intact, alert, awake, oriented x 3 and moves all extremities Assessment and Plan *Assessment and plan (1) Acute on chronic HFrEF (heart failure with reduced ejection fraction): Status: Acute Category: Medical Code(s): I50.23 - Acute on chronic systolic (congestive) heart failure (2) Hx of CABG: Status: Acute Category: Surgical Code(s): Z95.1 - Presence of aortocoronary bypass graft (3) Renal artery stenosis: Status: Acute Category: Medical Code(s): I70.1 - Atherosclerosis of renal artery (4) DM type 2 (diabetes mellitus, type 2): Status: Acute Qualifiers: Diabetes mellitus exterminator helper termite insulin use: without exterminator helper termite use Diabetes mellitus complication status: with other specified complication Qualified Code(s): E11.69 - Type 2 diabetes mellitus with other specified complication Category: Medical Code(s): E11.9 - Type 2 diabetes mellitus without complications (5) Elevated troponin: Status: Acute Category: Medical Code(s): R79.89 - Other specified abnormal findings of blood chemistry (6) Sinus tachycardia: Status: Acute Category: Medical Code(s): R00.0 - Tachycardia, unspecified (7) Calf cramp: Status: Acute Category: Medical Code(s): R25.2 - Cramp and spasm Plan Mr. Carrasco is a 74-year-old male with history of HFrEF, presents with acute exacerbation. BNP elevated at 17,000. Bilateral effusions on chest imaging with shortness of breath with exertion. Previous echo from 3 years ago with EF reduced. Significant diastolic dysfunction. Supposed to take Bumex at home, not having optimal response. Responding to IV diuresis during admission. Showing improvement. Cardiology consulted and assisting with care. Continue to diurese over the weekend. Heart failure reduced on echo, necessitating LifeVest. Cardiology recommending heart cath but would like to see kidney function improve. Will need to wait till Friday. Necessitating management over the weekend inpatient. Problems addressed as follows: Acute on Chronic HFrEF Volume overload Paroxysmal A-fib HTN CKD 4 - ProBNP 17k with bilateral pleural effusions and shortness of breath with exertion on admission, repeat ordered for the morning -BUN 40, creatinine 2.7. Baseline 2.0-2.2. Repeat BMP, magnesium ordered for the morning. -Echo with EF approximately 30%. Will need LifeVest prior to discharge home. -Negative fluid balance since admission. Stable on room air. continuing Bumex 2mg QAM. - Continue aspirin 81 mg daily, Lipitor 80 mg nightly, dapagliflozin 10 mg daily. -Continue metoprolol succinate 25 mg daily, isosorbide dinitrate 20 mg every 8 hours, and hydralazine 25 mg 3 times a day. Hypertension -Not currently on anticoagulation for A-fib, will consider NOAC prior to discharge CAD s/p CABG 2017 and LUKE 2021 - anginal equivalent RIDDLE here with elevated Trop at 0.09 and 0.11 -Continue aspirin, metoprolol, statin as above - consider pre-discharge C versus outpatient follow-up per cardiology recommendation Diabetes - poorly controlled with A1C 9.2. Continue empagliflozin. Continue sliding scale insulin with fingersticks ACHS. Morning glucose 274, increase basal insulin to 35 units twice daily, continue high intensity sliding scale. Full code Lovenox 40 mg daily Diabetic diet
[2024-12-26 16:02] LABS: POC Glucose,Bedside 312 (70-110)
[2024-12-26] MEDS: ATORVASTATIN 40MG TABLET 80 MG PO (20:34)
[2024-12-26] MEDS: CYCLOBENZAPRINE 10MG TABLET 10 MG PO (20:34)
[2024-12-26] MEDS: INSULIN GLARGINE 100 UNITS/ML 3ML FLEXPEN 35 UNIT SUBCUT (20:35)
[2024-12-26] MEDS: PANTOPRAZOLE 40MG TABLET 40 MG PO (20:35)
[2024-12-26 20:47] LABS: POC Glucose,Bedside 294 (70-110)
[2024-12-27] VITALS (17 sets, daily range): BP systolic 111–135; BP diastolic 57–90; PULSE 80–102; RESP 14–19; TEMP 36.3–36.8; O2SAT 93–100; BMI 25.2
[2024-12-27 05:24] LABS: POC Glucose,Bedside 172 (70-110)
[2024-12-27] MEDS: ISOSORBIDE DINITRATE 20 MG TABLET PO ×3 (05:29→20:28)
[2024-12-27] MEDS: humaLOG 100 UNITS/ML 10ML VIAL (SSI) SUBCUT ×2 (05:29→20:27)
[2024-12-27] MEDS: LEVALBUTEROL 1.25MG/3ML NEB 1.25 MG IH ×2 (06:30→18:58)
[2024-12-27 06:47] LABS: Anion Gap 13.2 mEq/L (5-15); Blood Urea Nitrogen 44 mg/dl (9-20); Calcium 10.4 mg/dl (8.4-10.2); Carbon Dioxide 29 mmol/L (22.0-30.0); Chloride 95 mmol/L (98-107); Creatinine Clearance Estimated 25 mL/min (50-200); Estimated Glomerular Filt Rate 21 ml/min (>60); GFR (African American) 26 ML/MIN (>60); Glucose 184 mg/dl (74-100); Magnesium 1.7 mg/dl (1.6-2.3); Potassium 4.2 mmoL/L (3.5-5.1); Sodium 133 mmol/L (136-145)
[2024-12-27 07:19] LABS: NT Pro Brain Natriuretic Pep. 9370 pg/mL (0-125)
--- NOTE | 2024-12-27 07:49 | P.DS_ITS ---
General Admission date:: 12/22/24 Discharge date: 12/27/24 HPI HPI HPI: 74-year-old male with a long history of cardiac disease ejection fraction was 38% in October 2022. Status post CABG status post stenting. Patient presented with abnormal labs increased D-dimer and office wanted him to have more follow- up.. Patient was asymptomatic on arrival to the hospital. Lungs were clear. Patient was noted with bilateral pleural effusions and increased troponin please see note below from emergency room provider Patient placed on continuous cardiac monitoring and continuous pulse ox with initial blood pressure 156/94, heart rate 108, saturation 100%. Independent interpretation of EKG shows sinus tachycardia 104 bpm with no acute ischemic change. Left axis deviation with LVH. KY 180, QRS 102, QTc 394. Patient was given 60 mg IV Lasix For symptomatic management and correction of underlying abnormalities. Workup independently interpreted and significant for nonactionable CBC. Chemistry with mild LIANE on CKD. Appears to be intrarenal. VBG with mild metabolic acidosis with normal pH. pH 7.37, CO2 normal at 36, bicarb low at 20 with lactate 2.2. I feel mildly elevated lactate is due to the fact that VBG not placed on ice prior to laboratory evaluation. Mild hyponatremia, mild hypomagnesemia which was repleted. BNP elevated at 17,000 and troponin elevated 0.09, likely secondary to elevated BNP given nonischemic EKG. On independent interpretation of imaging, no PE, patient does have bilateral pleural effusions consistent with CHF. See radiology read for full review of final results. Heart score 5 . Patient is also noted with elevated blood sugar., Troponin basically stable 0.09 up to 0.11, patient remains asymptomatic but with his past medical history. Will place him on the floor to follow, labs and blood sugar. Consult and cardiology to evaluate him. Reviewing old records from September 2022. Ejection fraction was 38%, noting that the patient has a long history of renal insu fficiency. With creatinine averaging from 1.90 up to 2.4 and most recent labs available in the medical record. Patient does show some signs of congestive heart failure with changing in laboratory values question whether the ejection fraction is decreasing in the heart versus there is decreased perfusion for arterial vessels of the heart. For this reason we will place him and allow the desizing machine operator to see him determine the next best step and to evaluate any potential worsening CHF and renal function Exam Data for Last 24 hours Vital signs and Labs for Last 24 Hours: Temp Pulse Resp BP Pulse Ox O2 Del Method 98.1 F 90 16 140/80 96 Room Air 12/24/24 04:00 12/24/24 06:26 12/24/24 04:00 12/24/24 04:00 12/24/24 06:26 12/24/24 06:40 Laboratory Results - last 24 hr 12/23/24 06:45: D-Dimer 0.87 H 12/23/24 12:00: POC Glucose 389 H* 12/23/24 17:16: POC Glucose 256 H 12/24/24 05:45: WBC 7.2, RBC 4.04 L, Hgb 11.5 L, Hct 34.7 L, MCV 85.9, MCH 28.5, MCHC 33.1, RDW 15.8, Plt Count 229, MPV 10.4, Neut % (Auto) 70.7, Lymph % (Auto) 17.2, [place] % (Auto) 9.8 H, Eos % (Auto) 1.5, Baso % (Auto) 0.4, Neut # (Auto) 5.1, Lymph # (Auto) 1.2, [place] # (Auto) 0.7, Eos # (Auto) 0.1, Baso # (Auto) 0.0, Sodium 133 L, Potassium 3.8, Chloride 99, Carbon Dioxide 24, Anion Gap 13.8, BUN 38 H, Creatinine 2.70 H, Estimated Creat Clear 27, Estimated GFR 23 L, Est GFR ( Amer) 28 L, Glucose 252 H, Calcium 9.1, Magnesium 1.9 D, Total Bilir ubin 0.9, AST 27, ALT 27, Alkaline Phosphatase 83, NT-Pro-B Natriuret Pep 23327 H, Total Protein 6.9, Albumin 3.9, Globulin 3.0, Albumin/Globulin Ratio 1.3 12/24/24 05:47: POC Glucose 272 H I & O for Last 24 hours: Intake & Output 12/21/24 12/22/24 12/23/24 12/24/24 23:59 23:59 23:59 23:59 Intake Total 1280 / 1520 240 / 240 Output Total 0 / 0 1450 / 1775 800 / 800 Balance 0 / 200 -170 / -255 -560 / -560 Weight 80.059 kg 78.109 kg 78.1 kg Microbiology Reports for the Last 24 Hours: Microbiology 12/22/24 18:30 Blood Blood Culture - Preliminary NO GROWTH AFTER 24 HOURS 12/22/24 18:27 Blood Blood Culture - Preliminary NO GROWTH AFTER 24 HOURS Results Data Completed and Pending Labs on day of discharge: Labs from last 24 hours 12/24/24 12/24/24 12/23/24 05:47 05:45 17:16 WBC 7.2 RBC 4.04 L Hgb 11.5 L Hct 34.7 L MCV 85.9 MCH 28.5 MCHC 33.1 RDW 15.8 Plt Count 229 MPV 10.4 Neut % (Auto) 70.7 Lymph % (Auto) 17.2 [place] % (Auto) 9.8 H Eos % (Auto) 1.5 Baso % (Auto) 0.4 Neut # (Auto) 5.1 Lymph # (Auto) 1.2 [place] # (Auto) 0.7 Eos # (Auto) 0.1 Baso # (Auto) 0.0 D-Dimer Sodium 133 L Potassium 3.8 Chloride 99 Carbon Dioxide 24 Anion Gap 13.8 BUN 38 H Creatinine 2.70 H Estimated Creat Clear 27 Estimated GFR 23 L Est GFR ( Amer) 28 L Glucose 252 H POC Glucose 272 H 256 H Calcium 9.1 Magnesium 1.9 D Total Bilirubin 0.9 AST 27 ALT 27 Alkaline Phosphatase 83 NT-Pro-B Natriuret Pep 93238 H Total Protein 6.9 Albumin 3.9 Globulin 3.0 Albumin/Globulin Ratio 1.3 12/23/24 12/23/24 12:00 06:45 WBC RBC Hgb Hct MCV MCH MCHC RDW Plt Count MPV Neut % (Auto) Lymph % (Auto) [place] % (Auto) Eos % (Auto) Baso % (Auto) Neut # (Auto) Lymph # (Auto) [place] # (Auto) Eos # (Auto) Baso # (Auto) D-Dimer 0.87 H Sodium Potassium Chloride Carbon Dioxide Anion Gap BUN Creatinine Estimated Creat Clear Estimated GFR Est GFR ( Amer) Glucose POC Glucose 389 H* Calcium Magnesium Total Bilirubin AST ALT Alkaline Phosphatase NT-Pro-B Natriuret Pep Total Protein Albumin Globulin Albumin/Globulin Ratio Preliminary micro results at discharge 12/22/24 18:30 Blood Culture - Preliminary Blood NO GROWTH AFTER 24 HOURS 12/22/24 18:27 Blood Culture - Preliminary Blood NO GROWTH AFTER 24 HOURS DS: Diagnosis Discharge Diagnosis (1) Acute on chronic HFrEF (heart failure with reduced ejection fraction): Status: Acute Code(s): I50.23 - Acute on chronic systolic (congestive) heart failure (2) Hx of CABG: Status: Acute Code(s): Z95.1 - Presence of aortocoronary bypass graft (3) Renal artery stenosis: Status: Acute Code(s): I70.1 - Atherosclerosis of renal artery (4) DM type 2 (diabetes mellitus, type 2): Status: Acute Code(s): E11.9 - Type 2 diabetes mellitus without complications Qualifiers: Diabetes mellitus complication status: with other specified complication Diabetes mellitus [facility] insulin use: without [facility] use Qualified Code(s): E11.69 - Type 2 diabetes mellitus with other specified complication (5) Elevated troponin: Status: Acute Code(s): R79.89 - Other specified abnormal findings of blood chemistry (6) Sinus tachycardia: Status: Acute Code(s): R00.0 - Tachycardia, unspecified (7) Calf cramp: Status: Acute Code(s): R25.2 - Cramp and spasm Meds Home Medications and Allergies Home Medications ?Medication ?Instructions ?Recorded ?Confirmed ?Type aspirin 81 mg tablet,delayed 81 mg PO DAILY #90 tabs 12/08/24 12/22/24 Rx release (Adult Low Dose Aspirin) cholecalciferol (vitamin D3) 1,250 1,250 mcg PO WEEKLY 90 days #13 12/08/24 12/22/24 Rx mcg (50,000 unit) oral wafer wafers ferrous sulfate 325 mg (65 mg 325 mg PO DAILY #90 tabs 12/08/24 12/22/24 Rx iron) tablet finasteride 5 mg tablet 5 mg PO DAILY #90 tabs 12/08/24 12/22/24 Rx insulin glargine 100 unit/mL (3 20 unit (0.2 mL) SQ DAILY 90 days 12/08/24 12/22/24 Rx mL) subcutaneous pen #18 mL insulin lispro 100 unit/mL 1 sliding scale dose SQ 12/08/24 12/22/24 Rx subcutaneous pen USEASDIRECTD #15 mL isosorbide dinitrate 10 mg tablet 10 mg PO TID 90 days #270 tabs 12/08/24 12/22/24 Rx empagliflozin 10 mg tablet 10 mg PO DAILY #90 tabs 12/14/24 12/22/24 Rx (Jardiance) bumetanide 0.5 mg tablet 0.5 mg PO BID 12/22/24 12/22/24 History carvedilol 6.25 mg tablet (Coreg) 6.25 mg PO BID #60 tabs 12/22/24 12/22/24 Rx levothyroxine 88 mcg tablet 88 mcg PO DAILY 12/22/24 12/23/24 History melatonin 3 mg capsule 3 mg PO HS PRN Sleep 12/22/24 12/22/24 History atorvastatin 40 mg tablet 40 mg PO HS 12/23/24 12/23/24 History clopidogrel 75 mg tablet 75 mg PO DAILY 12/23/24 12/23/24 History omeprazole 40 mg capsule,delayed 40 mg PO DAILY 12/23/24 12/22/24 History release New Prescriptions to Start Prescriptions: Allergies Allergy/AdvReac Type Severity Reaction Status Date / Time amoxicillin Allergy Rash Verified 12/22/24 14:37 Penicillins Allergy Rash Verified 12/22/24 14:37 Discharge Plan Follow up Plan Follow up with: Marielos Amaral APRN [Primary Care Provider] - 12/31/24 11:30 am Gregory Worthington PA [Physician Buying Agent] - 01/06/25 10:45 am Merritt Martins MD [Staff Physician] - 01/03/25 9:00 am Prescriptions/Medication Reconciliation: No Action aspirin [Adult Low Dose Aspirin] 81 mg tablet,delayed release (DR/EC) 81 mg PO DAILY Qty: 90 1RF cholecalciferol (vitamin D3) 1,250 mcg (50,000 unit) wafer 1,250 mcg PO WEEKLY 90 Days Qty: 13 2RF ferrous sulfate 325 mg (65 mg iron) tablet 325 mg PO DAILY Qty: 90 0RF finasteride 5 mg tablet 5 mg PO DAILY Qty: 90 2RF insulin glargine 100 unit/mL (3 mL) insulin pen 20 unit SQ DAILY 90 Days Qty: 18 2RF insulin lispro 100 unit/mL insulin pen 1 sliding scale dose SQ USEASDIRECTD Qty: 15 3RF isosorbide dinitrate 10 mg tablet 10 mg PO TID 90 Days Qty: 270 3RF Rx Instructions: allow nitrate-free interval of 12-14 hrs per 24-hr period bumetanide 0.5 mg tablet 0.5 mg PO BID levothyroxine 88 mcg tablet 88 mcg PO DAILY melatonin 3 mg capsule 3 mg PO HS PRN (Reason: Sleep) carvedilol [Coreg] 6.25 mg tablet 6.25 mg PO BID Qty: 60 2RF Rx Instructions: must administer with a meal/food Jardiance 10 mg tablet 10 mg PO DAILY Qty: 90 2RF clopidogrel 75 mg tablet 75 mg PO DAILY atorvastatin 40 mg tablet 40 mg PO HS omeprazole 40 mg capsule,delayed release(DR/EC) 40 mg PO DAILY Patient Discharge Instructions Patient Instructions: DI for Heart Failure, DI for Pleural Effusion Print Language: Cambodian Providers Primary Care Provider: Marielos Amaral Admit Provider: Kurt Lagos Attending Provider: Kurt Lagos
--- NOTE | 2024-12-27 08:24 | EXP.CARD.PN ---
Subjective Subjective Date: 12/27/24 Time: 08:24 Principal diagnosis: CHF, CM Interval history: 74-year-old white male lying in bed watching TV in no acute distress. His breathing is improved and he is feeling better. Discussed plans for cardiac catheterization today both left and right and he is willing to proceed. Creatinine has risen slightly over the weekend to 2.9 with GFR of 21. Exam Data for Last 24 hours Vital signs and Labs for Last 24 Hours: Temp Pulse Resp BP Pulse Ox O2 Del Method 98.0 F 85 14 111/57 L 95 Room Air 12/27/24 04:00 12/27/24 06:31 12/27/24 04:00 12/27/24 04:00 12/27/24 06:31 12/27/24 07:47 Laboratory Results - last 24 hr 12/26/24 10:26: POC Glucose 360 H* 12/26/24 15:53: POC Glucose 312 H* 12/26/24 20:33: POC Glucose 294 H 12/27/24 05:16: POC Glucose 172 H 12/27/24 06:05: Sodium 133 L, Potassium 4.2, Chloride 95 L, Carbon Dioxide 29, Anion Gap 13.2, BUN 44 H, Creatinine 2.90 H, Estimated Creat Clear 25, Estimated GFR 21 L, Est GFR ( Amer) 26 L, Glucose 184 H D, Calcium 10.4 H, Magnesium 1.7, NT-Pro-B Natriuret Pep 9370 H I & O for Last 24 hours: Intake & Output 12/24/24 12/25/24 12/26/24 12/27/24 11:59 11:59 11:59 11:59 Intake Total 1240 / 1240 1560 / 1560 2610 / 2610 1200 / 1200 Output Total 2350 / 2350 2675 / 3125 2327 / 2527 200 / 200 Balance -1110 / -1110 -1115 / -1565 283 / 83 1000 / 1000 Weight 172 lb 2.896 oz 172 lb 2.896 oz 170 lb 8 oz 170 lb 9 oz Microbiology Reports for the Last 24 Hours: Microbiology 12/22/24 18:30 Blood Blood Culture - Preliminary NO GROWTH AFTER 4 DAYS 12/22/24 18:27 Blood Blood Culture - Preliminary NO GROWTH AFTER 4 DAYS *Routine Respiratory Exam Respiratory: Present CTA bilaterally; Absent rhonchi or wheezes *Routine Cardiovascular Exam Cardiovascular: Present RRR; Absent murmur, gallop or rubs Progress Note: A&P Assessment and plan (1) Acute on chronic HFrEF (heart failure with reduced ejection fraction): Status: Acute (2) Hx of CABG: Status: Acute (3) Renal artery stenosis: Status: Acute (4) DM type 2 (diabetes mellitus, type 2): Status: Acute (5) Elevated troponin: Status: Acute Assessment and Plan Assessment and Plan for All Diagnoses:: Acute on Chronic HFrEF - ProBNP 17k with bilateral pleural effusions and RIDDLE on admit, currently down to 9370 today - ECHO 2021: EF 42% and grade 2 diastolic dysfunction - repeat ECHO here shows EF down to 30% - pt takes Bumex 0.5mg BID at home - on Bumex 2 mg daily - slow diuresis given CKD-IV - on BB and SGLT-2 - No ARNI/ARB due to CKD, will use Hydralazine/Imdur - LifeVest in room PAF - per pt report in September at [facility] - here - not on OAC, will need to verify PAF before recommending - resume BB NSTEMI, CAD s/p CABG 2017 and LUKE 2021 - anginal equivalent RIDDLE here with elevated Trop at 0.09 and 0.11 and reduced EF at 30% with vol overload - resume ASA, Statin, BB - discussed RHC and LHC with patient. CKD-IV with JODIE - Cr 2.4 on arrival, up to 2.9 - Renal Duplex 08/2022 - high grade left JODIE but widely patent renals on angiogram 09/13/2022 - cont daily labs, dose adjust meds, repeat renal artery duplex here suggests >50% stenosis -BP improved since back on meds. COPD with Pulm Fibrosis - O2 95% on room air DM-II - poorly controlled with A1C 9.2 and heavy microalbuminuria - cont SGLT-2 - glucose control per primary service HLD - well controlled with LDL 47 Discussed plan for R and LHC today, in light of decreasing LVEF, with need for caution regarding CKD. Pt understands but wants to proceed. Obtain records from [facility] regarding cardiac procedure from . Keep overnight to monitor renal functions. If stable then discharge home with LifeVest. Repeat echo in 6 wks and if not better then consider AICD. Would recommend outpatient workup for amyloidosis due to cardiomyopathy and worsening renal functions.
[2024-12-27] MEDS: ASPIRIN EC 81MG TABLET 81 MG PO (09:12)
[2024-12-27] MEDS: HYDRALAZINE HCL 25MG TABLET 25 MG PO ×3 (09:13→20:27)
[2024-12-27] MEDS: DAPAGLIFLOZIN PROPANEDIOL 10 MG TABLET PO (09:13)
[2024-12-27] MEDS: METOPROLOL SUCCINATE XL 25MG TABLET 25 MG PO (09:14)
--- NOTE | 2024-12-27 09:34 | P.PN_ITS ---
Subjective *Date: 12/27/24 *Time: 17:55 Interval history: Patient has no acute complaints today. Stable on room air. Diuresing well. Says he feels better. Going for heart cath this morning. N.p.o. Medical Exam Vital signs and Labs for Last 24 Hours: Vital Signs Temp Pulse Pulse Resp BP Pulse Ox O2 Del Method 12/27/24 08:00 102 H 12/27/24 08:00 98.1 F 90 19 123/68 98 Room Air 12/27/24 07:47 Room Air 12/27/24 06:46 Room Air 12/27/24 06:31 85 12/27/24 06:31 88 12/27/24 06:31 95 Room Air 12/27/24 05:00 Room Air 12/27/24 04:00 98.0 F 90 14 111/57 L 97 Room Air 12/27/24 04:00 90 12/27/24 03:00 Room Air 12/27/24 01:00 Room Air 12/27/24 00:00 90 12/27/24 00:00 98.3 F 98 H 18 117/66 99 Room Air 12/26/24 23:00 Room Air 12/26/24 21:00 Room Air 12/26/24 20:00 80 12/26/24 20:00 Room Air 12/26/24 19:59 97.7 F 88 18 184/54 H 99 Room Air 12/26/24 17:40 Room Air 12/26/24 16:00 90 12/26/24 16:00 97.8 F 98 H 18 141/84 H 98 Room Air 12/26/24 15:41 Room Air 12/26/24 14:32 Room Air 12/26/24 12:02 Room Air 12/26/24 12:00 100 H 12/26/24 12:00 97.7 F 100 H 18 146/81 H 99 Room Air 12/26/24 11:05 90 12/26/24 11:05 90 12/26/24 11:05 96 Room Air 12/26/24 09:51 Room Air Intake and Output 12/26/24 12/27/24 12/27/24 23:59 07:59 15:59 Intake Total 600 / 2040 240 / 240 Balance 600 / 740 240 / 240 Intake: Intake, Oral Amount 600 / 2040 240 / 240 Other: Weight 77.366 kg Patient Weight 12/27/24 23:59 Weight 77.366 kg Laboratory Results - last 24 hr 12/26/24 10:26: POC Glucose 360 H* 12/26/24 15:53: POC Glucose 312 H* 12/26/24 20:33: POC Glucose 294 H 12/27/24 05:16: POC Glucose 172 H 12/27/24 06:05: Sodium 133 L, Potassium 4.2, Chloride 95 L, Carbon Dioxide 29, Anion Gap 13.2, BUN 44 H, Creatinine 2.90 H, Estimated Creat Clear 25, Estimated GFR 21 L, Est GFR ( Amer) 26 L, Glucose 184 H D, Calcium 10.4 H, Magnesium 1.7, NT-Pro-B Natriuret Pep 9370 H I & O for Labs for Last 24 Hours: Intake & Output 12/24/24 12/25/24 12/26/24 12/27/24 23:59 23:59 23:59 23:59 Intake Total 1240 / 1600 2610 / 2850 1800 / 2040 240 / 240 Output Total 2925 / 2925 2477 / 3077 1300 / 1300 Balance -1685 / -1325 133 / -227 500 / 740 240 / 240 Weight 78.1 kg 78.1 kg 77.337 kg 77.366 kg Microbiology Reports for the Last 24 Hours: Microbiology 12/22/24 18:30 Blood Blood Culture - Preliminary NO GROWTH AFTER 4 DAYS 12/22/24 18:27 Blood Blood Culture - Preliminary NO GROWTH AFTER 4 DAYS Constitutional: Present no acute distress, average body habitus, chronically ill appearing and cooperative Head: Present atraumatic and normocephalic ENT: Present normal exam Respiratory: Present normal respiratory effort; Absent rhonchi, wheezes or crackles Cardiac: Present Reg Rate and Rhythm GI: Present soft, distention and normal bowel sounds; Absent tenderness Extremities: Present normal inspection and full ROM; Absent edema Skin: Present intact; Absent erythema Neuro: Present Grossly Intact, alert, awake, oriented x 3 and moves all extremities Assessment and Plan *Assessment and plan (1) Acute on chronic HFrEF (heart failure with reduced ejection fraction): Status: Acute Category: Medical Code(s): I50.23 - Acute on chronic systolic (congestive) heart failure (2) Hx of CABG: Status: Acute Category: Surgical Code(s): Z95.1 - Presence of aortocoronary bypass graft (3) Renal artery stenosis: Status: Acute Category: Medical Code(s): I70.1 - Atherosclerosis of renal artery (4) DM type 2 (diabetes mellitus, type 2): Status: Acute Qualifiers: Diabetes mellitus complication status: with other specified complication 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 Carrasco is a 74-year-old male with history of HFrEF, presents with acute exacerbation. BNP elevated at 17,000. Bilateral effusions on chest imaging with shortness of breath with exertion. Previous echo from 3 years ago with EF reduced. Significant diastolic dysfunction. Supposed to take Bumex at home, not having optimal response. Responding to IV diuresis during admission. Showing improvement. Cardiology consulted and assisting with care. Diuresed well over the weekend. Going for right heart cath today. Further management pending findings. Problems addressed as follows: Acute on Chronic HFrEF Volume overload Paroxysmal A-fib HTN CKD 4 - ProBNP 17k with bilateral pleural effusions and shortness of breath with exertion on admission, repeat level of 9300 today. BUN 44, creatinine 2.9, still above baseline but stable for the weekend - Discussed case with cardiology, proceed with left heart cath. Patient with no blockages necessitating stents. Continue medical management of CAD. Cardiology defibrillator. Will consider defibrillator in the morning versus as an outpatient follow-up. Would benefit from further workup for his heart failure and kidney dysfunction such as MRI for amyloidosis. Consider inpatient versus close outpatient follow-up. -Repeat CBC, CMP, magnesium ordered for the morning -Echo with EF approximately 30%. Will need LifeVest or AICD prior to discharge home. -Negative fluid balance since admission. Stable on room air. continuing Bumex 2mg QAM. - Continue aspirin 81 mg daily, Lipitor 80 mg nightly, dapagliflozin 10 mg daily. -Continue metoprolol succinate 25 mg daily, isosorbide dinitrate 20 mg every 8 hours, and hydralazine 25 mg 3 times a day. Hypertension -Not currently on anticoagulation for A-fib, will consider NOAC prior to discharge CAD s/p CABG 2017 and LUKE 2021 - anginal equivalent RIDDLE here with elevated Trop at 0.09 and 0.11 -Continue aspirin, metoprolol, statin as above - consider pre-discharge C versus outpatient follow-up per cardiology recommendation Diabetes - poorly controlled with A1C 9.2. Continue empagliflozin. Continue sliding scale insulin with fingersticks ACHS. Morning glucose 184. Continue basal insulin at 35 units twice daily, continue high intensity sliding scale. Full code Lovenox 40 mg daily Diabetic diet
--- NOTE | 2024-12-27 12:49 | IR_ITS ---
APPROVED REPORT Patient Location: Inpatient Tool Builder: Bhanu Chan, RT (R) PROCEDURES Right heart catheterization Left heart catheterization Selective coronary angiogram Selective engagement left internal mammary artery to the LAD Selective engagement of saphenous vein graft to the diagonal artery Selective engagement of saphenous vein graft to the posterior sending artery Bilateral selective renal angiography INDICATION New onset cardiomyopathy ejection fraction 30%, Coronary artery disease, History of coronary bypass surgery, Chronic renal failure creatinine 2.9, Suspected renovascular hypertension with renal artery stenosis Informed consent was obtained prior to the procedure. COMPLICATIONS NONE Estimated Blood Loss: LESS THAN 10 ML TECHNIQUE One percent lidocaine was used to anesthetize the right groin. The right femoral artery was accessed via the Seldinger technique. A 5-Kinyarwanda and 7 sri lankan sheath was placed in the right femoral artery and vein respectfully. A 7 Kinyarwanda sheath was introduced and a [place]onda catheter was floated using hemodynamic waveforms in the pulmonary artery, right ventricle , and right atrium. Saturations were obtained in the pulmonary artery and the right atrium. The JR-4 and JL-4 catheter was also used to perform left heart catheterization and selective coronary angiogram. The JR4 catheter was used to perform bilateral selective renal angiography at the end of the procedure the patient was transferred to the post-op holding area in stable condition for arterial sheath removal. ANGIOGRAPHIC RESULTS The left main artery Patent The left anterior descending artery Has a proximal concentric 90% stenosis and then occluded after the second septal analytical research chemist The circumflex artery Is patent in the proximal segment and gives rise to no significant obtuse marginal arteries; The right coronary artery Proximally occluded The KEANE ventriculogram reveals Not performed The left ventricular end-diastolic pressure 20 mmHg BLOOD to LAD widely patent. Distal to the anastomosis the mid LAD has a 40 to 50% concentric stenosis Saphenous vein graft to the bifurcating first diagonal artery is widely patent however does have diffuse mid vessel 20% atheromatous plaque throughout the graft Saphenous vein graft to the posterior descending artery is widely patent with diffuse 20 and 30% atheromatous plaque Saphenous to circumflex artery ostially occluded Right renal artery singular normal Left renal artery singular normal Right atrial pressure 6 mmHg Right ventricular pressure 35/10 mmHg Pulmonary artery pressure 35/20 mmHg Pulmonary occlusion pressure 20 mmHg Right atrial saturation 66% Pulmonary artery saturation 64% Aortic saturation 99% Hemoglobin 12.5 Cardiac output 4.1 L/min IMPRESSION Coronary disease as described above Mildly elevated left-sided filling pressures Normal renal arteries PLAN 1. Patient should be evaluated for AICD placement due to LV dysfunction 2. Consider evaluation for amyloidosis if clinically suggestive 3. Consider cardiac MRI 4. Medical management for ischemic heart disease 5. Medical management for systolic heart failure Electronically signed by : Merritt Martins MD 12/27/2024 14:59:32
[2024-12-27] MEDS: MIDAZOLAM HCL 1MG/ML 5ML VIAL 1 MG IV (14:31)
[2024-12-27] MEDS: LIDOCAINE 1% 10ML MDV 20 ML IJ (14:31)
[2024-12-27] MEDS: FENTANYL 100MCG/2ML VIAL 50 MCG IV (14:31)
[2024-12-27] MEDS: diphenhydrAMINE 50MG/ML VIAL 50 MG IV (14:31)
[2024-12-27] MEDS: HEPARIN 1,000 UNITS/500ML NS (CATH LAB) 3000 UNIT IV (14:31)
[2024-12-27] MEDS: 0.9 % SODIUM CHLORIDE 500 ML 25 ML IV (14:32)
[2024-12-27] MEDS: IOPAMIDOL-370 (76%);100ML BOTTLE 40 ML IV ×2 (15:10→15:11)
[2024-12-27 15:20] LABS: CATHL Arterial O2 SAT 61.5 % (90-100)
[2024-12-27 16:19] LABS: POC Glucose,Bedside 136 (70-110)
[2024-12-27 16:20] LABS: Basophils # 0.1 K/mm3 (0-0.2); Basophils % 0.9 % (0.1-2.0); Eosinophils # 0.1 K/mm3 (0.0-0.4); Eosinophils % 1.7 % (0.1-12.0); Hematocrit 41.2 % (42.0-52.0); Hemoglobin 13.4 g/dL (14.1-18.0); Lymphocytes # 1.7 K/mm3 (0.7-4.5); Lymphocytes % 21.1 % (10-50); Mean Corpuscular HGB Conc 32.5 g/dL (31.8-35.4); Mean Corpuscular Hemoglobin 28.4 pg (27.0-31.2); Mean Corpuscular Volume 87.3 fl (80-94); Monocytes # 0.9 K/mm3 (0.1-1.0); Monocytes % 11.7 % (1.7-9.3); Neutrophils # 5.2 K/mm3 (1.8-7.8); Neutrophils % 64.2 % (37.0-80.0); Platelet Count 278 K/mm3 (142-424); Red Blood Count 4.72 M/mm3 (4.60-6.20); Red Cell Distribution Width 15.8 % (11.5-17.5)
--- NOTE | 2024-12-27 16:27 | PC.NURSE ---
Patient alert and oriented. VSS. On room air. Denies pain. Right femoral site D&I. Right foot pedal pulse with doppler. Pulse marked on foot. Denies pain. Tolerating oral intake. Currently on bedrest post heart cath.
--- NOTE | 2024-12-27 17:18 | PC.NURSE ---
Patient's magnesium is 1.7. Creatinine clearance 25. Per Dr. Lagos, do not replace magnesium today.
[2024-12-27] MEDS: INSULIN GLARGINE 100 UNITS/ML 3ML FLEXPEN 35 UNIT SUBCUT (20:27)
[2024-12-27] MEDS: ATORVASTATIN 40MG TABLET 80 MG PO (20:27)
[2024-12-27] MEDS: PANTOPRAZOLE 40MG TABLET 40 MG PO (20:28)
[2024-12-27 20:39] LABS: POC Glucose,Bedside 237 (70-110)
[2024-12-28] VITALS: BP 112/61; PULSE 100; PULSE 95; RESP 16; TEMP 36.4; O2SAT 97
[2024-12-28 04:00] VITALS: BP 127/74; PULSE 90; PULSE 92; RESP 16; TEMP 36.4; O2SAT 97; BMI 25.5
[2024-12-28] MEDS: ISOSORBIDE DINITRATE 20 MG TABLET PO ×2 (05:08→12:13)
[2024-12-28] MEDS: humaLOG 100 UNITS/ML 10ML VIAL (SSI) SUBCUT ×2 (05:09→12:13)
[2024-12-28 05:22] LABS: POC Glucose,Bedside 210 (70-110)
--- NOTE | 2024-12-28 05:45 | PC.NURSE ---
Pt A&OX4 and has tolerated room air. Lung sounds clear and bowel sounds active. He has ambulated to the bathroom with a walker. Dressing over right femoral cath site is c/d/i. He has remained sinus rhythm with occasional PVC's on tele. No complaints at this time, call light within reach.
[2024-12-28 06:17] VITALS: PULSE 105; PULSE 107; O2SAT 97
[2024-12-28] MEDS: LEVALBUTEROL 1.25MG/3ML NEB 1.25 MG IH (06:17)
[2024-12-28 06:31] LABS: Basophils # 0.1 K/mm3 (0-0.2); Basophils % 0.8 % (0.1-2.0); Eosinophils # 0.1 K/mm3 (0.0-0.4); Hematocrit 40.4 % (42.0-52.0); Hemoglobin 13.2 g/dL (14.1-18.0); Lymphocytes % 15.6 % (10-50); Mean Corpuscular HGB Conc 32.7 g/dL (31.8-35.4); Mean Corpuscular Hemoglobin 28.4 pg (27.0-31.2); Mean Corpuscular Volume 86.9 fl (80-94); Mean Platelet Volume 10.5 fl (7.4-10.4); Monocytes # 0.7 K/mm3 (0.1-1.0); Monocytes % 10.2 % (1.7-9.3); Neutrophils # 4.5 K/mm3 (1.8-7.8); Neutrophils % 71.1 % (37.0-80.0); Platelet Count 291 K/mm3 (142-424); Red Blood Count 4.65 M/mm3 (4.60-6.20); Red Cell Distribution Width 15.8 % (11.5-17.5); White Blood Count 6.4 K/mm3 (4.8-10.8)
[2024-12-28 06:38] LABS: Alanine Aminotransferase 24 U/L (12-78); Albumin Level 4.3 g/dl (3.5-5.0); Albumin/Globulin Ratio 1.3 (1.1-1.8); Alkaline Phosphatase 68 U/L (38-126); Anion Gap 9.5 mEq/L (5-15); Aspartate Amino Transferase 28 U/L (17-59); Bilirubin,Total 1.3 mg/dl (0.2-1.3); Blood Urea Nitrogen 48 mg/dl (9-20); Calcium 9.9 mg/dl (8.4-10.2); Carbon Dioxide 28 mmol/L (22.0-30.0); Chloride 98 mmol/L (98-107); Creatinine Clearance Estimated 27 mL/min (50-200); Estimated Glomerular Filt Rate 23 ml/min (>60); GFR (African American) 28 ML/MIN (>60); Globulin 3.3 g/dL (1.3-3.2); Glucose 158 mg/dl (74-100); Potassium 4.5 mmoL/L (3.5-5.1); Sodium 131 mmol/L (136-145); Total Protein,Serum 7.6 g/dl (6.3-8.2)
[2024-12-28 08:00] VITALS: BP 141/69; PULSE 100; PULSE 98; RESP 17; TEMP 36.5; O2SAT 99
[2024-12-28] MEDS: ASPIRIN EC 81MG TABLET 81 MG PO (08:44)
[2024-12-28] MEDS: HYDRALAZINE HCL 25MG TABLET 25 MG PO ×2 (08:44→12:13)
[2024-12-28] MEDS: DAPAGLIFLOZIN PROPANEDIOL 10 MG TABLET PO (08:44)
[2024-12-28] MEDS: METOPROLOL SUCCINATE XL 25MG TABLET 25 MG PO (08:44)
[2024-12-28] MEDS: ENOXAPARIN 30MG/0.3ML SYRINGE 30 MG SUBCUT (08:45)
[2024-12-28] MEDS: BUMETANIDE 1MG/4ML VIAL 2 MG IV (08:45)
--- NOTE | 2024-12-28 10:21 | P.PN_ITS ---
Subjective Subjective Date: 12/28/24 Time: 10:21 Principal diagnosis: CHF, CM Interval history: 74-year-old white male in bed in no acute distress. Patient is ready to go home. Results of right and left heart catheterization from yesterday reviewed with the patient. Patent BLOOD to LAD, SVG to PDA and SVG to bifurcating first diagonal with mild to moderate disease of all vessels distal to the anastomosis. SVG to circumflex is ostially occluded. Normal renal arteries Pulmonary artery occlusion pressure is 20 mmHg. Reviewed his records from hospital stay in October 2024 at [facility] in [facility]. He had an echocardiogram on 09/12/2024 showing an EF of 20% with subsequent CLAUDINE on 09/13/2024 showing a EF of 10% with no thrombus and 2+ mitral regurgitation. He had a non-STEMI in 09/28 with subsequent drug-eluting stent placement to his LAD. He had CLAUDINE/DCCV on 09/13/2024. [id number] score of 6 but unable to tolerate DOAC due to recurrent hematuria. Hospitalization 10/2024 for exacerbation of HFrEF. Exam Data for Last 24 hours Vital signs and Labs for Last 24 Hours: Temp Pulse Resp BP Pulse Ox O2 Del Method 97.7 F 98 H 17 141/69 H 99 Room Air 12/28/24 08:00 12/28/24 08:00 12/28/24 08:00 12/28/24 08:00 12/28/24 08:00 12/28/24 09:00 Laboratory Results - last 24 hr 12/27/24 14:45: ABG O2 Sat (Measured) 61.5 L, POC VBG O2 Sat (Joanne) 66.0 L 12/27/24 16:12: WBC 8.0, RBC 4.72, Hgb 13.4 L, Hct 41.2 L, MCV 87.3, MCH 28.4, MCHC 32.5, RDW 15.8, Plt Count 278, MPV 10.0, Neut % (Auto) 64.2, Lymph % (Auto) 21.1, [place] % (Auto) 11.7 H, Eos % (Auto) 1.7, Baso % (Auto) 0.9, Neut # (Auto) 5.2, Lymph # (Auto) 1.7, [place] # (Auto) 0.9, Eos # (Auto) 0.1, Baso # (Auto) 0.1, POC Glucose 136 H 12/27/24 20:24: POC Glucose 237 H 12/28/24 05:09: POC Glucose 210 H 12/28/24 06:00: WBC 6.4, RBC 4.65, Hgb 13.2 L, Hct 40.4 L, MCV 86.9, MCH 28.4, MCHC 32.7, RDW 15.8, Plt Count 291, MPV 10.5 H, Neut % (Auto) 71.1, Lymph % (Auto) 15.6, [place] % (Auto) 10.2 H, Eos % (Auto) 2.0, Baso % (Auto) 0.8, Neut # (Auto) 4.5, Lymph # (Auto) 1.0, [place] # (Auto) 0.7, Eos # (Auto) 0.1, Baso # (Auto) 0.1, Sodium 131 L, Potassium 4.5, Chloride 98, Carbon Dioxide 28, Anion Gap 9.5, BUN 48 H, Creatinine 2.70 H, Estimated Creat Clear 27, Estimated GFR 23 L, Est GFR ( Amer) 28 L, Glucose 158 H, Calcium 9.9, Magnesium 2.0 D, Total Bilirubin 1.3, AST 28, ALT 24, Alkaline Phosphatase 68, Total Protein 7.6, Albumin 4.3, Globulin 3.3 H, Albumin/Globulin Ratio 1.3 I & O for Last 24 hours: Intake & Output 12/25/24 12/26/24 12/27/24 12/28/24 11:59 11:59 11:59 11:59 Intake Total 1560 / 1560 2610 / 2610 1200 / 1200 1100 / 1100 Output Total 2675 / 3125 2327 / 2527 200 / 200 850 / 850 Balance -1115 / -1565 283 / 83 1000 / 1000 250 / 250 Weight 172 lb 2.896 oz 170 lb 8 oz 170 lb 9 oz 172 lb 9.6 oz Microbiology Reports for the Last 24 Hours: Microbiology 12/22/24 18:30 Blood Blood Culture - Final NO GROWTH AFTER 5 DAYS 12/22/24 18:27 Blood Blood Culture - Final NO GROWTH AFTER 5 DAYS Constitutional Constitutional: no acute distress *Routine Respiratory Exam Respiratory: Present CTA bilaterally *Routine Cardiovascular Exam Cardiovascular: Present RRR Progress Note: A&P Assessment and plan (1) Acute on chronic HFrEF (heart failure with reduced ejection fraction): Status: Acute (2) Hx of CABG: Status: Acute (3) Renal artery stenosis: Status: Acute (4) DM type 2 (diabetes mellitus, type 2): Status: Acute (5) Elevated troponin: Status: Acute (6) Sinus tachycardia: Status: Acute (7) Calf cramp: Status: Acute Assessment and Plan Assessment and Plan for All Diagnoses:: 1. Acute on Chronic HFrEF - ProBNP 17k with bilateral pleural effusions and RIDDLE on admit, currently down to 9370 today - ECHO and CLAUDINE 09/2024: EF 10-20% and grade 2 diastolic dysfunction - repeat ECHO here shows EF up to 30% - pt takes Bumex 0.5mg BID at home - on Bumex 2 mg daily - slow diuresis given CKD-IV - on BB and SGLT-2 - No ARNI/ARB due to CKD, will use Hydralazine/Imdur - LifeVest in room 2. PAF - CLAUDINE/DCCV at [facility] in 09/2024. No A/C due to recurrent hematuria. - SR here - resume BB 3. NSTEMI, CAD s/p CABG 2016 and LUKE 2021 and 09/2024 - anginal equivalent RIDDLE here with elevated Trop at 0.09 and 0.11 and reduced EF at 30% with vol overload - resume ASA, Statin, BB - discussed RHC and LHC with patient. 3 of 4 bypass patent. 4. CKD-IV with JODIE - Cr 2.4 on arrival, now 2.7 - renal angiogram 12/2024 at time of RHC/LHC shows normal renals. - BP improved since back on meds. 5. COPD with Pulm Fibrosis - O2 95% on room air 6. DM-II - poorly controlled with A1C 9.2 and heavy microalbuminuria - cont SGLT-2 - glucose control per primary service 7. HLD - well controlled with LDL 47 Stable from Cardiology standpoint for discharge. Follow-up in our office with plans to repeat echo in 4-6 wks and if not better then consider AICD. Would recommend outpatient workup for amyloidosis due to cardiomyopathy and worsening renal functions. Home med recommendations: Aspirin 81 mg daily Clopidogrel 75 mg daily Atorvastatin 80 mg daily Farxiga 10 mg daily Hydralazine 25 mg 3 times daily Isordil 20 mg 3 times daily Metoprolol succinate 25 mg daily Bumex 1 mg daily
[2024-12-28 11:52] LABS: POC Glucose,Bedside 302 (70-110)
[2024-12-28 12:00] VITALS: BP 140/74; PULSE 100; PULSE 97; RESP 17; TEMP 36.4; O2SAT 97
--- NOTE | 2024-12-28 13:21 | P.DS_ITS ---
General Admission date:: 12/22/24 Hospital Course Hospital Course Hospital Course: Zackary Carrasco is a 74-year-old male with a history of HFrEF who presents with shortness of breath, volume overload and was admitted for HFrEF exacerbation. #Acute on chronic HFrEF #CAD s/p CABG 2017, LUKE 2021 #NSTEMI type II #CKD stage IV #Hypertension ? Initial BNP 17,500 with signs of volume overload. Troponin also peaked at 0.11. ? Cardiology consulted, s/p C 12/27/2024 without occlusive disease. No new stents. ? ECHO revealed improved LVEF to 30% with medical management. Cardiology recommends continuing and optimizing medical management prior to considering AICD. ? Clinically improved with IV Bumex diuresis. Renal function stable with CKD stage IV creatinine 2.7, GFR 23. ? Cardiology started hydralazine 25 mg 3 times daily, increase Isordil to 20 mg 3 times daily, discontinue Coreg and started metoprolol succinate 25 mg. Increase Bumex to 1 mg daily. ? Continue aspirin 81 mg, clopidogrel 75 mg, atorvastatin 80 mg. Continue Jardiance 10 mg. ? LifeVest placed. ? Will follow-up with cardiology within 1 week. #Paroxysmal A-fib ? Currently rate controlled in sinus rhythm here. Continue metoprolol succinate. No anticoagulation due to recurrent hematuria. #Type 2 diabetes ? Increased Lantus insulin to 30 units nightly. Continue Jardiance 10 mg. ? Will follow-up with PCP for further management. #BPH ? Continue home finasteride 5 mg. #GERD ? Continue home PPI. Exam Data for Last 24 hours Vital signs and Labs for Last 24 Hours: Temp Pulse Resp BP Pulse Ox O2 Del Method 97.6 F 97 H 17 140/74 97 Room Air 12/28/24 12:00 12/28/24 12:00 12/28/24 12:00 12/28/24 12:00 12/28/24 12:00 12/28/24 13:00 Laboratory Results - last 24 hr 12/27/24 14:45: ABG O2 Sat (Measured) 61.5 L, POC VBG O2 Sat (Joanne) 66.0 L 12/27/24 16:12: WBC 8.0, RBC 4.72, Hgb 13.4 L, Hct 41.2 L, MCV 87.3, MCH 28.4, MCHC 32.5, RDW 15.8, Plt Count 278, MPV 10.0, Neut % (Auto) 64.2, Lymph % (Auto) 21.1, Newton % (Auto) 11.7 H, Eos % (Auto) 1.7, Baso % (Auto) 0.9, Neut # (Auto) 5.2, Lymph # (Auto) 1.7, Newton # (Auto) 0.9, Eos # (Auto) 0.1, Baso # (Auto) 0.1, POC Glucose 136 H 12/27/24 20:24: POC Glucose 237 H 12/28/24 05:09: POC Glucose 210 H 12/28/24 06:00: WBC 6.4, RBC 4.65, Hgb 13.2 L, Hct 40.4 L, MCV 86.9, MCH 28.4, MCHC 32.7, RDW 15.8, Plt Count 291, MPV 10.5 H, Neut % (Auto) 71.1, Lymph % (Auto) 15.6, Newton % (Auto) 10.2 H, Eos % (Auto) 2.0, Baso % (Auto) 0.8, Neut # (Auto) 4.5, Lymph # (Auto) 1.0, Newton # (Auto) 0.7, Eos # (Auto) 0.1, Baso # (Auto) 0.1, Sodium 131 L, Potassium 4.5, Chloride 98, Carbon Dioxide 28, Anion Gap 9.5, BUN 48 H, Creatinine 2.70 H, Estimated Creat Clear 27, Estimated GFR 23 L, Est GFR ( Amer) 28 L, Glucose 158 H, Calcium 9.9, Magnesium 2.0 D, Total Bilirubin 1.3, AST 28, ALT 24, Alkaline Phosphatase 68, Total Protein 7.6, Albumin 4.3, Globulin 3.3 H, Albumin/Globulin Ratio 1.3 12/28/24 11:45: POC Glucose 302 H* I & O for Last 24 hours: Intake & Output 12/25/24 12/26/24 12/27/24 12/28/24 23:59 23:59 23:59 23:59 Intake Total 2610 / 2850 1800 / 2040 840 / 1090 500 / 500 Output Total 2477 / 3077 1300 / 1300 350 / 350 1300 / 1300 Balance 133 / -227 500 / 740 490 / 740 -800 / -800 Weight 78.1 kg 77.337 kg 77.365 kg 78.29 kg Microbiology Reports for the Last 24 Hours: Microbiology 12/22/24 18:30 Blood Blood Culture - Final NO GROWTH AFTER 5 DAYS 12/22/24 18:27 Blood Blood Culture - Final NO GROWTH AFTER 5 DAYS Constitutional Constitutional: no acute distress *Routine HEENT Exam Head: Present normocephalic Eye: Present EOMI and PERRL ENT: Present mucous membranes moist *Routine Neck Exam Neck: Present supple; Absent lymphadenopathy *Routine Respiratory Exam Respiratory: Present CTA bilaterally *Routine Cardiovascular Exam Cardiovascular: Present RRR *Routine Abdominal Exam Abdominal: Present soft and normoactive bowel sounds; Absent tenderness *Routine Extremities Exam Extremities: Absent cyanosis, clubbing or edema *Routine Skin Exam Skin: Present warm; Absent rash *Routine Neurological Exam Neurological: Present alert and oriented X3 Results Data Completed and Pending Labs on day of discharge: Labs from last 24 hours 12/28/24 12/28/24 12/28/24 11:45 06:00 05:09 WBC 6.4 RBC 4.65 Hgb 13.2 L Hct 40.4 L MCV 86.9 MCH 28.4 MCHC 32.7 RDW 15.8 Plt Count 291 MPV 10.5 H Neut % (Auto) 71.1 Lymph % (Auto) 15.6 Newton % (Auto) 10.2 H Eos % (Auto) 2.0 Baso % (Auto) 0.8 Neut # (Auto) 4.5 Lymph # (Auto) 1.0 Newton # (Auto) 0.7 Eos # (Auto) 0.1 Baso # (Auto) 0.1 ABG O2 Sat (Measured) POC VBG O2 Sat (Joanne) Sodium 131 L Potassium 4.5 Chloride 98 Carbon Dioxide 28 Anion Gap 9.5 BUN 48 H Creatinine 2.70 H Estimated Creat Clear 27 Estimated GFR 23 L Est GFR ( Amer) 28 L Glucose 158 H POC Glucose 302 H* 210 H Calcium 9.9 Magnesium 2.0 D Total Bilirubin 1.3 AST 28 ALT 24 Alkaline Phosphatase 68 Total Protein 7.6 Albumin 4.3 Globulin 3.3 H Albumin/Globulin Ratio 1.3 12/27/24 12/27/24 12/27/24 20:24 16:12 14:45 WBC 8.0 RBC 4.72 Hgb 13.4 L Hct 41.2 L MCV 87.3 MCH 28.4 MCHC 32.5 RDW 15.8 Plt Count 278 MPV 10.0 Neut % (Auto) 64.2 Lymph % (Auto) 21.1 Newton % (Auto) 11.7 H Eos % (Auto) 1.7 Baso % (Auto) 0.9 Neut # (Auto) 5.2 Lymph # (Auto) 1.7 Newton # (Auto) 0.9 Eos # (Auto) 0.1 Baso # (Auto) 0.1 ABG O2 Sat (Measured) 61.5 L POC VBG O2 Sat (Joanne) 66.0 L Sodium Potassium Chloride Carbon Dioxide Anion Gap BUN Creatinine Estimated Creat Clear Estimated GFR Est GFR ( Amer) Glucose POC Glucose 237 H 136 H Calcium Magnesium Total Bilirubin AST ALT Alkaline Phosphatase Total Protein Albumin Globulin Albumin/Globulin Ratio DS: Diagnosis Discharge Diagnosis (1) Acute on chronic HFrEF (heart failure with reduced ejection fraction): Status: Acute Code(s): I50.23 - Acute on chronic systolic (congestive) heart failure (2) Hx of CABG: Status: Acute Code(s): Z95.1 - Presence of aortocoronary bypass graft (3) Renal artery stenosis: Status: Acute Code(s): I70.1 - Atherosclerosis of renal artery (4) DM type 2 (diabetes mellitus, type 2): Status: Acute Code(s): E11.9 - Type 2 diabetes mellitus without complications Qualifiers: Diabetes mellitus complication status: with other specified complication Diabetes mellitus chcf insulin use: without terminal make up operator use Qualified Code(s): E11.69 - Type 2 diabetes mellitus with other specified complication (5) Elevated troponin: Status: Acute Code(s): R79.89 - Other specified abnormal findings of blood chemistry (6) Sinus tachycardia: Status: Acute Code(s): R00.0 - Tachycardia, unspecified (7) Calf cramp: Status: Acute Code(s): R25.2 - Cramp and spasm Meds Home Medications and Allergies Home Medications ?Medication ?Instructions ?Recorded ?Confirmed ?Type aspirin 81 mg tablet,delayed 81 mg PO DAILY #90 tabs 12/08/24 12/22/24 Rx release (Adult Low Dose Aspirin) cholecalciferol (vitamin D3) 1,250 1,250 mcg PO WEEKLY 90 days #13 12/08/24 12/22/24 Rx mcg (50,000 unit) oral wafer wafers ferrous sulfate 325 mg (65 mg 325 mg PO DAILY #90 tabs 12/08/24 12/22/24 Rx iron) tablet finasteride 5 mg tablet 5 mg PO DAILY #90 tabs 12/08/24 12/22/24 Rx insulin lispro 100 unit/mL 1 sliding scale dose SQ 12/08/24 12/22/24 Rx subcutaneous pen USEASDIRECTD #15 mL empagliflozin 10 mg tablet 10 mg PO DAILY #90 tabs 12/14/24 12/22/24 Rx (Jardiance) levothyroxine 88 mcg tablet 88 mcg PO DAILY 12/22/24 12/23/24 History melatonin 3 mg capsule 3 mg PO HS PRN Sleep 12/22/24 12/22/24 History atorvastatin 40 mg tablet 40 mg PO HS 12/23/24 12/23/24 History clopidogrel 75 mg tablet 75 mg PO DAILY 12/23/24 12/23/24 History omeprazole 40 mg capsule,delayed 40 mg PO DAILY 12/23/24 12/22/24 History release bumetanide 0.5 mg tablet 1 mg (2 x 0.5 mg) PO DAILY 30 days 12/28/24 12/22/24 Rx #0 tabs hydralazine 25 mg tablet 25 mg PO TID 30 days #90 tabs 12/28/24 Rx insulin glargine 100 unit/mL (3 30 unit (0.3 mL) SQ DAILY 90 days 12/28/24 12/22/24 Rx mL) subcutaneous pen #18 mL isosorbide dinitrate 20 mg tablet 20 mg PO Q8H 30 days #90 tabs 12/28/24 Rx metoprolol succinate 25 mg 25 mg PO DAILY 30 days #30 tabs 12/28/24 Rx tablet,extended release 24 hr New Prescriptions to Start Prescriptions: hydralazine Chloe,Joel isosorbide dinitrate Chloe,Joel metoprolol succinate Joel Corona Allergies Allergy/AdvReac Type Severity Reaction Status Date / Time amoxicillin Allergy Rash Verified 12/22/24 14:37 Penicillins Allergy Rash Verified 12/22/24 14:37 Discharge Plan Disposition Patient Disposition: Home, Self-Care Condition: Fair Discharge Order Discharge Orders: Discharge Order (Routine); Ordered 12/28/24 Ordered By: Joel Corona Follow up Plan Follow up with: Marielos Amaral APRN [Primary Care Provider] - 12/31/24 11:30 am Merritt Martins MD [Staff Physician] - 01/03/25 9:00 am Prescriptions/Medication Reconciliation: New hydralazine 25 mg Tablet 25 mg PO TID 30 Days Qty: 90 0RF isosorbide dinitrate 20 mg Tablet 20 mg PO Q8H 30 Days Qty: 90 0RF metoprolol succinate 25 mg Tablet Extended Release 24 Hr 25 mg PO DAILY 30 Days Qty: 30 0RF Continued aspirin [Adult Low Dose Aspirin] 81 mg tablet,delayed release (DR/EC) 81 mg PO DAILY Qty: 90 1RF cholecalciferol (vitamin D3) 1,250 mcg (50,000 unit) wafer 1,250 mcg PO WEEKLY 90 Days Qty: 13 2RF ferrous sulfate 325 mg (65 mg iron) tablet 325 mg PO DAILY Qty: 90 0RF finasteride 5 mg tablet 5 mg PO DAILY Qty: 90 2RF insulin lispro 100 unit/mL insulin pen 1 sliding scale dose SQ USEASDIRECTD Qty: 15 3RF levothyroxine 88 mcg tablet 88 mcg PO DAILY melatonin 3 mg capsule 3 mg PO HS PRN (Reason: Sleep) Jardiance 10 mg tablet 10 mg PO DAILY Qty: 90 2RF clopidogrel 75 mg tablet 75 mg PO DAILY atorvastatin 40 mg tablet 40 mg PO HS omeprazole 40 mg capsule,delayed release(DR/EC) 40 mg PO DAILY Changed bumetanide 0.5 mg tablet 1 mg PO DAILY 30 Days Qty: 0 0RF insulin glargine 100 unit/mL (3 mL) insulin pen 30 unit SQ DAILY 90 Days Qty: 18 2RF Discontinued isosorbide dinitrate 10 mg tablet 10 mg PO TID 90 Days Qty: 270 3RF Rx Instructions: allow nitrate-free interval of 12-14 hrs per 24-hr period carvedilol [Coreg] 6.25 mg tablet 6.25 mg PO BID Qty: 60 2RF Rx Instructions: must administer with a meal/food Problem Reconciliation Problems Reviewed?: Yes Patient Discharge Instructions Patient Instructions: DI for Heart Failure, DI for Surgical Site Infection, DI for Pleural Effusion Print Language: Nigerian Providers Primary Care Provider: Marielos Amaral Admit Provider: Kurt Lagos Attending Provider: Kurt Lagos
--- NOTE | 2024-12-30 13:05 | SW/DCPLANNER ---
Phoned patient x2. Patient did not answer and left message with call back number and name. Claus Trejo
== END 2024-12-28 17:00 | disposition home or self-care (01) | DRG 682 ==
LOC: ER 17:45 → 2ND 19:52
PROVIDERS: Internal Medicine; Nurse Practitioner Family; Physician Assistant; Admitting Provider Internal Medicine Adolescent Medicine; Emergency Provider Emergency Medicine; PCP Nurse Practitioner Family; Visit Provider Internal Medicine Adolescent Medicine
PROC: 4A023N8 Measurement of Cardiac Sampling and Pressure, Bilateral, Percutaneous Approach (ICD-10-PCS; principal; 2024-12-27 11:25)
DX: I13.10 Hypertensive heart and chronic kidney disease without heart failure, with stage 1 through stage 4 chronic kidney disease, or unspecified chronic kidney disease (principal); I50.23 Acute on chronic systolic (congestive) heart failure; N18.4 Chronic kidney disease, stage 4 (severe); Z95.1 Presence of aortocoronary bypass graft; I70.1 Atherosclerosis of renal artery; E11.69 Type 2 diabetes mellitus with other specified complication; R00.0 Tachycardia, unspecified; R25.2 Cramp and spasm; E11.22 Type 2 diabetes mellitus with diabetic chronic kidney disease; Z79.1 Long term (current) use of non-steroidal anti-inflammatories (NSAID); I48.0 Paroxysmal atrial fibrillation; Z79.01 Long term (current) use of anticoagulants; Z88.0 Allergy status to penicillin; R79.89 Other specified abnormal findings of blood chemistry; Z79.82 Long term (current) use of aspirin; Z79.4 Long term (current) use of insulin; I77.1 Stricture of artery; E78.5 Hyperlipidemia, unspecified; I25.10 Atherosclerotic heart disease of native coronary artery without angina pectoris; Z87.891 Personal history of nicotine dependence
CPT/HCPCS: 36252; 36415; 71045; 71275; 80048; 80053; 80061; 82803; 82810; 82962; 83605; 83735; 83880; 84436; 84443; 84484; 85025; 85378; 85610; 85730; 87040; 93005; 93306; 93461; 93970; 93976; 94640; 99152; 99153; 99291; C1725; C1769; C1894; J1200; J1644; J1650; J1939; J1940; J2060; J2250; J3010; J3475; J7120; J7614; Q9967

== ENCOUNTER 2025-01-24 10:17 | Inpatient (IN) | payer MEDICARE, SELFPAY ==
[2025-01-24] VITALS (30 sets, daily range): BP systolic 70–160; BP diastolic 00–109; PULSE 56–131; RESP 15–26; TEMP 36.4–36.8; O2SAT 73–100; BMI 25.8; BMI 28.2
--- NOTE | 2025-01-24 10:23 | ECG_ITS ---
APPROVED REPORT Exam: Resting ECG HR:131 bpm ECG Measurements Heart Rate 131 AXES QRSd 89 QRS -2 QT 280 T 120 QTc 357 Conclusion ATRIAL FLUTTER/TACHYCARDIA WITH RAPID VENTRICULAR RESPONSE POSSIBLE ANTERIOR MYOCARDIAL INFARCTION , PROBABLY OLD [30 ms Q WAVE IN V3/V4, OR R < 0.2 mV IN V4] INFERIOR MYOCARDIAL INFARCTION , PROBABLY OLD [40+ ms Q WAVE AND/OR ST/T ABNORMALITY IN II/aVF] ST DEPRESSION, CONSIDER SUBENDOCARDIAL INJURY [0.1+ mV ST DEPRESSION] ABNORMAL ECG UNCONFIRMED REPORT Electronically signed by : Kurt Damon, 01/24/2025 15:10:00
--- OUTSIDE RECORDS SUMMARY | 2025-01-24 10:24 | XMS_ITS ---
Author Organization [facility] , [facility] Address [address] [place] [address] Phone Care Team Providers Care Assistant Broker Name Role Phone Ghulam ARIAS, Kristofer Saenz Unavailable [phone] BRII ENRIQUEZ Unavailable [phone] Problems Includes: Active, inactive, and resolved Problems All Visits Onset Date Resolved Date Provider Condition S tatus Left Elbow Joint Pain 06/23/2023 Giuseppe Winkler PA-C Active Last Documented On 3 12:34PM ; [facility] Plan of Treatment Instructions to patient Intervention and counseling on cessation of tobacco use Last Documented On 3 12:43PM ; [facility] Lose weight Last Documented On 3 12:43PM ; [facility] Intervention and counseling on cessation of tobacco use Last Documented On 3 2:39PM ; [facility] Lose weight Last Documented On 3 2:39PM ; [facility] Intervention and counseling on cessation of tobacco use Last Documented On 3 1:51PM ; [facility] Lose weight Last Documented On 3 1:51PM ; [facility] Intervention and counseling on cessation of tobacco use Last Documented On 3 1:03PM ; [facility] Lose weight Last Documented On 3 1:02PM ; [facility] Assessments Includes: Assessments for all patient encounters Findings Encounter Date Overweight Follow Up with Jaz GARCIAC 08/04/2023 Last Documented On 3 12:50PM ; [facility] Overweight Follow Up with Jaz DEVLIN-C 07/14/2023 Last Documented On 3 1:01PM ; [facility] Overweight Follow Up with Jaz bland PA-C 06/30/2023 Last Documented On 3 9:58AM ; [facility] Overweight Physician Specified with Jaz Winkler PA-C 06/23/2023 Last Documented On 3 1:31PM ; [facility], [facility] Instructions Includes: Instructions for all patient encounters Instructions to patient Intervention and counseling on cessation of tobacco use Last Documented On 3 12:43PM ; [facility] Lose weight Last Documented On 3 12:43PM ; [facility] Intervention and counseling on cessation of tobacco use Last Documented On 3 2:39PM ; [facility] Lose weight Last Documented On 3 2:39PM ; [facility] Intervention and counseling on cessation of tobacco use Last Documented On 3 1:51PM ; [facility] Lose weight Last Documented On 3 1:51PM ; [facility] Intervention and counseling on cessation of tobacco use Last Documented On 3 1:03PM ; [facility] Lose weight Last Documented On 3 1:02PM ; [facility] Medical Equipment - Implanted Devices Includes: Current and historical Devices No Medical Equipment Recorded Medications Includes: Current and historical Medications Current Medications (continue as prescribed) Ciprofloxacin HCl 500 MG Oral Tablet 06/18/2023 Prov ider: BRII ENRIQUEZ Diagnosis: Last Documented On 3 12:33PM By Ramona Pastor ; [facility] Insulin Glargine Solostar 10 0 UNIT/ML Subcutaneous Solution Pen-injector 06/17/2023 Provider: OSMAR ENRIQUEZ Diagnosis: Last Documented On 3 12:33PM By Ramona Pastor ; [facility] metFORMIN HCl ER 500 MG Oral Tablet Extended Release 24 Hour 06/17/2023 Provider: BRII ENRIQUEZ Diagnosis: Last Documented On 3 12:33PM By Ramona Pastor ; [facility] Metoprolol Succinate ER 50 M G Oral Tablet Extended Release 24 Hour 06/16/2023 Provider: BRII ENRIQUEZ Diagnosis: Last Documented On 3 12:33PM By Ramona Pastor ; [facility] Gemtesa 75 MG Oral Tablet 05/22/2023 Provider: DIO MORRIS MD Diagnosis: Last Documented On 3 12:33PM By Ramona Pastor ; [facility] Atorvastatin Calcium 40 MG Oral Tablet 05/20/2023 Pr ovider: Molly Loyd NP Diagnosis: Last Documented On 3 12:33PM By Ramona Pastor ; [facility] Omeprazole 40 MG Oral Capsule Delayed Release 05/20/20 Provider: Molly Loyd NP Diagnosis: Last Documented On 3 12:33PM By Ramona Pastor ; [facility] Pantoprazole Sodium 40 MG Or al Tablet Delayed Release 05/20/2023 Provider: BRII ENRIQUEZ Diagnosis: Last Documented On 3 12:33PM By Ramona Pastor ; [facility] Tamsulosin HCl 0.4 MG Oral Capsule 05/20/2023 Provid er: Molly Loyd NP Diagnosis: Last Documented On 3 12:33PM By Ramona Pastor ; [facility] Xarelto 15 MG Oral Tablet 05/20/2023 Provider: MARY JO ENRIQUEZ Diagnosis: Last Documented On 3 12:33PM By Ramona Pastor ; [facility] levoFLOXacin 500 MG Oral Tablet 04/22/2023 Provider: ZACKARY MORRIS MD Diagnosis: Last Documented On 3 12:33PM By Ramona Pastor ; [facility] Metoprolol Succinate ER 50 M G Oral Tablet Extended Release 24 Hour 03/24/2023 Provider: Diagnosis: Last Documented On 3 12:33PM By Ramona Pastor ; [facility] Tobramycin 0.3% Ophthalmic Solution 02/14/2023 Provi katelin: BRII ENRIQUEZ Diagnosis: Last Documented On 3 12:33PM By Ramona Pastor ; [facility] Medications Administered Includes: Administered Medications in patient's chart No Administered Medications Recorded Results Includes: Results from 01/25/2024 through 01/24/2025 No Results Recorded For Specified Dates History of Present Illness History of Present Illness not supported for this document type No History of Present Illness Recorded Social History Description Last Updated Tobacco use 06/23/2023 Last Documented On 3 1:31PM ; [facility] Caffeine use 06/23/2023 Last Documented On 3 1:31PM ; [facility] No recent change in diet 06/23/2023 Last Documented On 3 1:31PM ; [facility] Not exercising regularly 06/23/2023 Last Documented On 3 1:31PM ; [facility] Not using alcohol 06/23/2023 Last Documented On 3 1:31PM ; [facility] Not using drugs 06/23/2023 Last Documented On 3 1:31PM ; [facility] Yes, current smoker. 06/23/2023 Last Documented On 3 1:31PM ; [facility] Smoking Status Unknown Procedures and Surgical History Surgical History Last Updated History of appendectomy 06/23/2023 Last Documented On 3 1:31PM ; [facility] History of heart surgery 06/23/2023 Last Documented On 3 1:31PM ; [facility] History of hernia repair 06/23/2023 Last Documented On 3 1:31PM ; [facility], [facility] Medical History Includes: Medical History in patient's chart Description Last Updated History of arthritis 06/23/2023 Last Documented On 3 1:31PM ; [facility] History of diabetes mellitus 06/23/2023 Last Documented On 3 1:31PM ; [facility] History of Fractures 06/23/2023 Last Documented On 3 1:31PM ; [facility] History of Heart Attack 06/23/2023 Last Documented On 3 1:31PM ; [facility] History of heart disease 06/23/2023 Last Documented On 3 1:31PM ; [facility] History of Heartburn / Acid Reflux 06/23 Last Documented On 3 1:31PM ; [facility] History of History of Gallbladder 2022 Last Documented On 3 1:31PM ; [facility] History of Hypertension 06/23/2023 Last Documented On 3 1:31PM ; [facility] History of Previous Fractures 06/23/2023 Last Documented On 3 1:31PM ; [facility] History of Thyroid Disease 06/23/2023 Last Documented On 3 1:31PM ; [facility], [facility] Family History Includes: Family History in patient's chart Description Last Updated Diabetes mellitus 06/23/2023 Last Documented On 3 1:31PM ; [facility] Family history of cancer 06/23/2023 Last Documented On 3 1:31PM ; [facility], [facility] Review of Systems Review of Systems not supported for this document type No Review of Systems Recorded Mental Status Description No anxiety Functional Status No Functional Status Recorded Physical Exam Physical Exam not supported for this document type No Physical Exam Recorded Allergies Includes: Active, inactive, and resolved Allergies Substance Type Reaction Onset Date Resolved Date Statu s Penicillins Allergy 06/23/2023 Active Last Documented On 3 12:42PM ; [facility], [facility] Insurance Includes: Active Insurance Policies Plan Name Member ID Group # Subscriber Relationship Effect rpasanna Dates 1 - [employer] [place] Medicare [id number] Zackary Toy Self 08/07/2022 - Un known Clinical Notes Includes: Signed Clinical Notes starting from 09/19/2022 No Clinical Notes Recorded
--- OUTSIDE RECORDS SUMMARY | 2025-01-24 10:24 | XMS_ITS ---
Author Organization Unknown TREATMENT PLAN Planned Care Start Date Provider Encounter for Check-up [id number] CRA Wong
--- OUTSIDE RECORDS SUMMARY | 2025-01-24 10:24 | XMS_ITS | Clinical Summary ---
Author Organization [facility] , [facility] Address [address] [place] [address] Phone Care Team Providers Care Latrine Cleaner Name Role Phone Ghulam ARIAS, Kristofer Saenz Unavailable Unavail able BRII ENRIQUEZ Unavailable [phone] Reason for Visit and Chief Complaint The Chief Complaint is: Left elbow pain Problems Includes: Problems addressed during this encounter and other active Problems All Visits Onset Date Resolved Date Provider Condition S tatus Left Elbow Joint Pain 06/23/2023 Giuseppe Winkler PA-C Active Last Documented On 3 12:34PM ; [facility] Plan of Treatment Fall Risk Assessment: This patient has been identified as a fall risk. Balance/gait along with postural blood pressure, vision and home fall hazards have been assessed. Medications have been reviewed, and recommendations made with regard to contributing factors for future falls. Plan of care: Consideration of vitamin D supplementation along with balance and strength training with consideration for formal physical therapy has been discussed with the patient. - Last Documented On 07/21/2023 1:01PM ; [facility] his wound has resolved. Fracture still well aligned would use the sling and gentle range of motion of the loading of the arm. He understands that there may be some stiffness regarding this type of injury. There also is a risk of this this fracture does develop a nonunion. We will see him back as scheduled - Last Documented On 07/21/2023 1:01PM ; [facility] Instructions to patient Intervention and counseling on cessation of tobacco use Last Documented On 3 2:39PM ; [facility] Lose weight Last Documented On 3 2:39PM ; [facility] Assessments Includes: Assessments from this encounter Findings - Overweight - Last Documented On 07/21/2023 1:01PM ; [facility] left distal humerus fracture - Last Documented On 07/21/2023 1:01PM ; [facility] Instructions Includes: Instructions from this encounter Instructions to patient Intervention and counseling on cessation of tobacco use Last Documented On 3 2:39PM ; [facility] Lose weight Last Documented On 3 2:39PM ; [facility] Medical Equipment - Implanted Devices Includes: Current Devices No Medical Equipment Recorded Medications Includes: Medications discussed during this encounter and other current Medications Current Medications (continue as prescribed) Ciprofloxacin HCl 500 MG Oral Tablet 06/18/2023 Prov ider: BRII ENRIQUEZ Diagnosis: Last Documented On 3 12:33PM By Ramona Pastor ; [facility] Insulin Glargine Solostar 10 0 UNIT/ML Subcutaneous Solution Pen-injector 06/17/2023 Provider: OSMAR ENRIQUEZ Diagnosis: Last Documented On 3 12:33PM By Ramona Pastor ; [facility] metFORMIN HCl ER 500 MG Oral Tablet Extended Release 24 Hour 06/17/2023 Provider: BRII ENRIQUEZ Diagnosis: Last Documented On 3 12:33PM By Ramona Pastor ; [facility] Metoprolol Succinate ER 50 M G Oral Tablet Extended Release 24 Hour 06/16/2023 Provider: BRII ENRIQUEZ Diagnosis: Last Documented On 3 12:33PM By Ramona Pastor ; [facility] Gemtesa 75 MG Oral Tablet 05/22/2023 Provider: DIO MORRIS MD Diagnosis: Last Documented On 3 12:33PM By Ramona Pastor ; [facility] Atorvastatin Calcium 40 MG Oral Tablet 05/20/2023 Pr ovider: Molly Loyd [employer] Diagnosis: Last Documented On 3 12:33PM By Ramona Pastor ; [facility] Omeprazole 40 MG Oral Capsule Delayed Release 05/20/20 Provider: Molly Loyd NP Diagnosis: Last Documented On 3 12:33PM By Ramona Pastor ; [facility] Pantoprazole Sodium 40 MG Or al Tablet Delayed Release 05/20/2023 Provider: BRII ENRIQUEZ Diagnosis: Last Documented On 3 12:33PM By Ramona Pastor ; [facility] Tamsulosin HCl 0.4 MG Oral Capsule 05/20/2023 Provid er: Molly Loyd NP Diagnosis: Last Documented On 3 12:33PM By Ramona Pastor ; [facility], [facility] Xarelto 15 MG Oral Tablet 05/20/2023 Provider: MARY JO ENRIQUEZ Diagnosis: Last Documented On 3 12:33PM By Ramona Pastor ; [facility], [facility] levoFLOXacin 500 MG Oral Tablet 04/22/2023 Provider: DEION MORRIS MD Diagnosis: Last Documented On 3 12:33PM By Ramona Pastor ; [facility], [facility] Metoprolol Succinate ER 50 M G Oral Tablet Extended Release 24 Hour 03/24/2023 Provider: Diagnosis: Last Documented On 3 12:33PM By Ramona Pastor ; [facility], [facility] Tobramycin 0.3% Ophthalmic Solution 02/14/2023 Provi katelin: BRII ENRIQUEZ Diagnosis: Last Documented On 3 12:33PM By Ramona Pastor ; [facility], [facility] Medications Administered Includes: Administered Medications from this encounter No Administered Medications Recorded Vital Signs Includes: Vital Signs from this encounter Vital Name 07/14/2023 02:39P Height (in) 69 Weight (lb) 181 Body Mass Index 26.7 Body Surface Area 2 Note: HDV Last Documented: On 07/14/2023 2:39PM ; [facility], [facility] Results Includes: Results discussed during this encounter No Results Recorded For Specified Dates History of Present Illness Includes: History of Present Illness from this encounter HPI Deion Carrasco is a 72 year old male. - Allergy list reviewed - Problem list reviewed - Medication list reviewed - Previous history of new onset pain 06/10/2023 following a fall - Pain is constant (100% of the time) - Patient pain level from 1-10: 5 Nothing makes the pain better or worse - Yes, previous treatment. Social History Description Last Updated Tobacco use 06/23/2023 Last Documented On 3 2:39PM ; [facility], [facility] Caffeine use 06/23/2023 Last Documented On 3 2:39PM ; [facility], [facility] No recent change in diet 06/23/2023 Last Documented On 3 2:39PM ; [facility] Not exercising regularly 06/23/2023 Last Documented On 3 2:39PM ; [facility], [facility] Not using alcohol 06/23/2023 Last Documented On 3 2:39PM ; [facility] Not using drugs 06/23/2023 Last Documented On 3 2:39PM ; [facility], [facility] Yes, current smoker. 06/23/2023 Last Documented On 3 2:39PM ; [facility], [facility] Smoking Status Unknown Procedures and Surgical History Includes: Procedures from this encounter Procedures Code Diagnosis Performing Provider Service L ocation Service Date intervention and counseling on cessation of tobacco use 4000F Last Documented On 3 2:39PM ; [facility], [facility] use of tobacco assessment performed 1000F Last Documented On 3 2:39PM ; [facility], [facility] patient screened for future fall risk: documentation of any fall with injury in past year 1100F Last Documented On 3 2:39PM ; [facility] an X-ray was performed 21565 Last Documented On 3 2:39PM ; [facility] Surgical History Last Updated History of appendectomy 06/23/2023 Last Documented On 3 2:39PM ; [facility] History of heart surgery 06/23/2023 Last Documented On 3 2:39PM ; [facility], [facility] History of hernia repair 06/23/2023 Last Documented On 3 2:39PM ; [facility], [facility] Medical History Includes: Medical History addressed during this encounter Description Last Updated History of arthritis 06/23/2023 Last Documented On 3 2:39PM ; [facility], [facility] History of diabetes mellitus 06/23/2023 Last Documented On 3 2:39PM ; [facility], [facility] History of Fractures 06/23/2023 Last Documented On 3 2:39PM ; [facility], [facility] History of Heart Attack 06/23/2023 Last Documented On 3 2:39PM ; [facility], [facility] History of heart disease 06/23/2023 Last Documented On 3 2:39PM ; [facility], [facility] History of Heartburn / Acid Reflux 06/23 Last Documented On 3 2:39PM ; [facility], [facility] History of History of Gallbladder 2022 Last Documented On 3 2:39PM ; [facility], [facility] History of Hypertension 06/23/2023 Last Documented On 3 2:39PM ; [facility], [facility] History of Previous Fractures 06/23/2023 Last Documented On 3 2:39PM ; [facility] History of Thyroid Disease 06/23/2023 Last Documented On 3 2:39PM ; [facility], [facility] Family History Includes: Family History addressed during this encounter Description Last Updated Diabetes mellitus 06/23/2023 Last Documented On 3 2:39PM ; [facility] Family history of cancer 06/23/2023 Last Documented On 3 2:39PM ; [facility] Review of Systems Includes: Review of Systems from this encounter Systemic: Not feeling tired, no recent weight loss, and no recent weight gain. Head: No headache. Sinus pain. Eyes: No vision problems, no Cataracts, no Glasses/Contacts, and no Glaucoma. Otolaryngeal: Hearing loss. No tinnitus. Cardiovascular: Chest pain or discomfort. No palpitations. Hypertension and High Cholesterol. Pulmonary: No daytime asthma symptoms and no chronic cough. No wheezing. Gastrointestinal: No heartburn and no abdominal pain. No Indigestion. Acid Reflux. No Peptic Ulcer, no GI Stomach Bleed, and no Ulcers. Endocrine: No hot flashes and no muscle weakness. Diabetes. No Hypothyroid. Hyperthyroid. Hematologic: No easy bleeding. A tendency for easy bruising. No Anemia. Musculoskeletal: Arthritis. No lower back pain. No soft tissue swelling and no localized joint pain. Neurological: No dizziness, no convulsions, and no numbness. Psychological: No anxiety, no emotional lability, no depression, and no insomnia. Not crying for no reason. Skin: No dry skin. No Ulcers, no Scars, and no rash. Allergic and Immunologic: No complaint of seasonal allergic reaction. Mental Status Includes: Mental Status from this encounter Description No anxiety Functional Status Includes: Functional Status from this encounter No Functional Status Recorded Physical Exam Includes: Physical Exam from this encounter Allergies Includes: Active Allergies Substance Type Reaction Onset Date Resolved Date Statu s Penicillins Allergy 06/23/2023 Active Last Documented On 3 12:42PM ; [facility] Encounters Encounter Provider Location Date Check-In Time Check-Out Time Diagnosis Follow Up Jaz Winkler PA-C [facility] 3 2:34PM 3:16PM Overweight Insurance Includes: Active Insurance Policies Plan Name Member ID Group # Subscriber Relationship Effect prasanna Dates 1 - [employer] ([place]) Medicare [id number] Deion Carrasco Self 08/07/2022 - Un known Clinical Notes Includes: Clinical Notes from this encounter * Progress note Date Encounter Last Documented by 07/14/2023 Follow Up Last documented on 07/21/2023; 1:01 PM, Jaz Winkler PA-C; [facility] Active Problems & Conditions - Left Elbow Joint Pain Chief Complaint The Chief Complaint is: Left elbow pain. Referred Here Referred by. History of Present Illness Deion Carrasco is a 72 year old male. - Allergy list reviewed - Problem list reviewed - Medication list reviewed - Previous history of new onset pain 06/10/2023 following a fall - Pain is constant (100% of the time) - Patient pain level from 1-10: 5 Nothing makes the pain better or worse - Yes, previous treatment. Current Medication - Atorvastatin Calcium 40 MG Oral Tablet 90 days, 0 refills - Ciprofloxacin HCl 500 MG Oral Tablet 10 days, 0 refills - Gemtesa 75 MG Oral Tablet 30 days, 0 refills - Insulin Glargine Solostar 100 UNIT/ML Subcutaneous Solution Pen-injector 27 days, 0 refills - levoFLOXacin 500 MG Oral Tablet 7 days, 0 refills - metFORMIN HCl ER 500 MG Oral Tablet Extended Release 24 Hour 90 days, 0 refills - Metoprolol Succinate ER 50 MG Oral Tablet Extended Release 24 Hour 90 days, 0 refills - Metoprolol Succinate ER 50 MG Oral Tablet Extended Release 24 Hour 90 days, 0 refills - Omeprazole 40 MG Oral Capsule Delayed Release 90 days, 0 refills - Pantoprazole Sodium 40 MG Oral Tablet Delayed Release 90 days, 0 refills - Tamsulosin HCl 0.4 MG Oral Capsule 90 days, 0 refills - Tobramycin 0.3% Ophthalmic Solution 9 days, 0 refills - Xarelto 15 MG Oral Tablet 30 days, 0 refills Past Medical/Surgical History Reported: History of Fractures and History of Heart Attack. Diagnoses: Heart disease. Heartburn / Acid Reflux Thyroid Disease Hypertension. Diabetes mellitus. Arthritis Surgical: - Heart surgery - Appendectomy - Hernia repair - History of Gallbladder - Previous Fractures Social History Yes, current smoker. Current diet: No recent change in diet. Caffeine use: Caffeine use. Tobacco use: Tobacco use. Alcohol: Not using alcohol. Drug Use: Not using drugs. Habits: Not exercising regularly. Allergies - Penicillins Family History Cancer Diabetes mellitus Review Of Systems Systemic: Not feeling tired, no recent weight loss, and no recent weight gain. Head: No headache. Sinus pain. Eyes: No vision problems, no Cataracts, no Glasses/Contacts, and no Glaucoma. Otolaryngeal: Hearing loss. No tinnitus. Cardiovascular: Chest pain or discomfort. No palpitations. Hypertension and High Cholesterol. Pulmonary: No daytime asthma symptoms and no chronic cough. No wheezing. Gastrointestinal: No heartburn and no abdominal pain. No Indigestion. Acid Reflux. No Peptic Ulcer, no GI Stomach Bleed, and no Ulcers. Endocrine: No hot flashes and no muscle weakness. Diabetes. No Hypothyroid. Hyperthyroid. Hematologic: No easy bleeding. A tendency for easy bruising. No Anemia. Musculoskeletal: Arthritis. No lower back pain. No soft tissue swelling and no localized joint pain. Neurological: No dizziness, no convulsions, and no numbness. Psychological: No anxiety, no emotional lability, no depression, and no insomnia. Not crying for no reason. Skin: No dry skin. No Ulcers, no Scars, and no rash. Allergic and Immunologic: No complaint of seasonal allergic reaction. Physical Findings - Vitals taken 07/14/2023 02:39 pm HDV Height 69 in Weight 181 lbs Body Mass Index 26.7 kg/m2 Body Surface Area 2 m2 General Exam: The patient is awake and alert. No acute distress. Normal mood and affect for age. Well groomed and nourished Neuro: Sensation was intact to light touch over the extremity. Vascular: +2 radial pulses. No edema. Derm: No signs of active infection. No acute skin changes. Musculoskeletal: Normal gait and station. No muscle atrophy. No joint effusion. his wound has resolved. No sign of infection. He has limited motion secondary to pain he still has some mild bony tenderness he has chronic deformity of the forearm from previous injury Tests x-rays 2 view of the left elbow shows maintained alignment distal humerus fracture. Assessment - Overweight left distal humerus fracture Previous Tests Imaging: X-Ray: An X-ray was performed. Therapy - Intervention and counseling on cessation of tobacco use. Counseling/Education - Lose weight Plan Fall Risk Assessment: This patient has been identified as a fall risk. Balance/gait along with postural blood pressure, vision and home fall hazards have been assessed. Medications have been reviewed, and recommendations made with regard to contributing factors for future falls. Plan of care: Consideration of vitamin D supplementation along with balance and strength training with consideration for formal physical therapy has been discussed with the patient. his wound has resolved. Fracture still well aligned would use the sling and gentle range of motion of the loading of the arm. He understands that there may be some stiffness regarding this type of injury. There also is a risk of this this fracture does develop a nonunion. We will see him back as scheduled Notes This dictation was done with voice recognition software and may contain errors and omissions. Practice Management Use of tobacco assessment performed and patient screened for future fall risk documentation of any fall with injury in past year. Care Team - BRII ENRIQUEZ
--- OUTSIDE RECORDS SUMMARY | 2025-01-24 10:24 | XMS_ITS | Data Portability ---
Author Organization [facility] Mongo Address [address] [place] [address] Assessment No assessment recorded. Plan of Treatment Reminders Order Date Submit Date Provider Last Modified By Organization Details Last Modified Time Details Appointments None recorded. Lab urinalysis , dipstick [address], [address], 3 11:41:10 urinalysis , dipstick [address], [address], 3 11:51:05 urinalysis , dipstick [address], [address], 3 21:46:22 Referral None recorded. Procedures bladder scan (PROC) [address], [address], 3 11:41:10 bladder scan (PROC) [address], [address], 11:51:05 bladder scan (PROC) 2022 [email or web address], [address], 21:46:22 Surgeries None recorded. Imaging None recorded. Medication Orders Gemtesa 75 mg tablet 2022 023 [facility] 591, [address], [address], 12:48:35 Patient TargetsNo targets recorded. Patient InstructionsNo instructions recorded. Reason for Referral None Reported. Results Created Date Observation Date Name Description Value Unit Range Abnormal Flag Note LastModifiedBy Organization Detail LastModifiedTime 02/22/2002/21/2023 bladd er scan (PROC ) Calculated Residual Urine: 132 ML Not Available [address], [address], 02/21/2023 11:16:22 02/22/20 23 02/21/2023 urina lysis , dipst ick Leukocytes (reference range) negati ve Not Available [address], [address], 02/21/2023 11:14:55 02/22/20 23 02/21/2023 urina lysis , dipst ick Nitrite (reference range:) negati ve Not Available [address], [address], 02/21/2023 11:14:55 02/22/20 23 02/21/2023 urina lysis , dipst ick Urobilinogen (reference range) 0.2 Not Available [address], [address], 02/21/2023 11:14:55 02/22/20 23 02/21/2023 urina lysis , dipst ick Protein (reference range) 30 Not Available [address], [address], 02/21/2023 11:14:55 02/22/20 23 02/21/2023 urina lysis , dipst ick pH (reference range 5-8.5) 5.5 Not Available [address], [address], 02/21/2023 11:14:55 02/22/20 23 02/21/2023 urina lysis , dipst ick Blood (reference range:) negati ve Not Available [address], [address], 02/21/2023 11:14:55 02/22/20 23 02/21/2023 urina lysis , dipst ick Specific [place] (reference range) 1.020 Not Available [address], [address], 02/21/2023 11:14:55 02/22/2002/21/2023 urina lysis , dipst ick Ketone (reference range) negati ve Not Available [address], [address], 02/21/2023 11:14:55 02/22/20 23 02/21/2023 urina lysis , dipst ick Bilirubin (reference range) negati ve Not Available [address], [address], 02/21/2023 11:14:55 02/22/20 23 02/21/2023 urina lysis , dipst ick Glucose (reference range) negati ve Not Available [address], [address], 02/21/2023 11:14:55 04/04/20 04/04/2023 bladd er scan (PROC ) Calculated Residual Urine: 177 ml Not Available [address], [address], 04/04/2023 11:34:42 04/04/20 23 04/04/2023 urina lysis , dipst ick Leukocytes (reference range) negati ve Not Available [address], [address], 04/04/2023 11:33:50 04/04/20 23 04/04/2023 urina lysis , dipst ick Nitrite (reference range:) negati ve Not Available [address], [address], 04/04/2023 11:33:50 04/04/20 23 04/04/2023 urina lysis , dipst ick Urobilinogen (reference range) 0.2 Not Available [address], [address], 04/04/2023 11:33:50 04/04/20 23 04/04/2023 urina lysis , dipst ick Protein (reference range) 30 Not Available [address], [address], 04/04/2023 11:33:50 04/04/20 23 04/04/2023 urina lysis , dipst ick pH (reference range 5-8.5) 5.0 Not Available [address], [address], 04/04/2023 11:33:50 04/04/20 23 04/04/2023 urina lysis , dipst ick Blood (reference range:) negati ve Not Available [address], [address], 04/04/2023 11:33:50 04/04/20 23 04/04/2023 urina lysis , dipst ick Specific [place] (reference range) 1.010 Not Available [address], [address], 04/04/2023 11:33:50 04/04/20 23 04/04/2023 urina lysis , dipst ick Ketone (reference range) negati ve Not Available [address], [address], 04/04/2023 11:33:50 04/04/20 23 04/04/2023 urina lysis , dipst ick Bilirubin (reference range) negati ve Not Available [address], [address], 04/04/2023 11:33:50 04/04/20 23 04/04/2023 urina lysis , dipst ick Glucose (reference range) negati ve Not Available [address], [address], 04/04/2023 11:33:50 05/28/2005/28/2023 bladd er scan (PROC ) Calculated Residual Urine: 287 ml Not Available [address], [address], 05/28/2023 11:06:32 05/28/2005/28/2023 urina lysis , dipst ick Leukocytes (reference range) negati ve Not Available [address], [address], 05/28/2023 10:58:54 05/28/2005/28/2023 urina lysis , dipst ick Nitrite (reference range:) negati ve Not Available [address], [address], 05/28/2023 10:58:54 05/28/20 23 05/28/2023 urina lysis , dipst ick Urobilinogen (reference range) 0.2 Not Available [address], [address], 05/28/2023 10:58:54 05/28/2005/28/2023 urina lysis , dipst ick Protein (reference range) 100 Not Available [address], [address], 05/28/2023 10:58:54 05/28/2005/28/2023 urina lysis , dipst ick pH (reference range 5-8.5) 5.5 Not Available [address], [address], 05/28/2023 10:58:54 05/28/20 23 05/28/2023 urina lysis , dipst ick Blood (reference range:) small Not Available [address], [address], 05/28/2023 10:58:54 05/28/20 23 05/28/2023 urina lysis , dipst ick Specific [place] (reference range) 1.020 Not Available [address], [address], 05/28/2023 10:58:54 05/28/2005/28/2023 urina lysis , dipst ick Ketone (reference range) negati ve Not Available [address], [address], 05/28/2023 10:58:54 05/28/20 23 05/28/2023 urina lysis , dipst ick Bilirubin (reference range) negati ve Not Available [address], [address], 05/28/2023 10:58:54 05/28/2005/28/2023 urina lysis , dipst ick Glucose (reference range) 1000 Not Available [facility] [address], [place], [address], 05/28/2023 10:58:54 02/22/2012/30/2022 CT, abdom en + pelvi s, w/ contr ast No observ ation record ed. [email or web address] [address] [place], [address], 02/25/2023 09:42:50 Result Notes None recorded. Problems Name Problem SNOMED Code Status Onset Date Resolution Date Notes Provider Name and Address Organization Details Recorded Time Myocardial infarction 32671867 Active 2022 Willie Brennan [place], [place] - [facility] - [facility] & [place] 3 10:24:24 Hypertensiv e disorder 76213799 Active 2022 Willie [place] null, [place] [facility] [place] 3 10:24:30 Acute stroke 0088388832998 04 Active 2022 Willie [place] null, [place] - [facility] - [facility] & [place] 3 10:24:40 Diabetes mellitus 28727629 Active 2022 Willie [place] null, [place] [facility] - [facility] & [place] 3 10:24:44 Environment al allergy 429619911 Active 2022 Willie [place] null, [place] [facility] & [place] 3 10:24:52 Hypercholes terolemia 81667330 Active 2022 Willie Amin null, [place] - [facility] & [place] 3 10:25:09 Sleep apnea 53622414 Active 2022 Willie Amin null, [place] - [facility] & [place] 3 10:25:18 Gastroesoph ageal reflux disease 688167678 Active 2022 Willie tanner, [place] - [facility] - [place] & [place] 3 10:25:23 Kidney disease 91133784 Active 2022 iWllie tanner, [place] - [facility] - [place] & [place] 3 10:25:33 Arthritis 2459428 Active 2022 Willie tanner, [place] - [facility] - [place] & [place] 3 10:25:39 Problem Notes None recorded. Procedures Surgical History Date Name Laterality Status Provider Name and Address Organization Details Recorded Time 04/04/20 Cystoscopy-Male completed Zackary Chandler Jr, MD [address] [place] [address], [address], [place], [address], [place] - [facility] - [place] & [place] 04/04/2023 12:46:16 tonsillectomy completed Willie YAN - [facility] - [place] & [place] 02/21/2023 10:27:07 esophageal hiatus hernia repair completed Willie YAN - [facility] - [place] & [place] 02/21/2023 10:27:23 Appendectomy completed Willie YAN - [facility] - [place] & [place] 02/21/2023 10:27:30 cholecystectomy completed Willie YAN - [facility] - [place] & [place] 02/21/2023 10:27:40 Imaging Results Imaging Date Name Status LastModified by Organiz ation Details LastModified Time 12/30/2022 CT, abdomen + pelvis, w/ contrast completed [email or web address] [address], [place], [address], 02/25/2023 09:42:50 Procedure Notes None recorded. Medical Equipment None Reported. Allergies No known drug allergies Medications Name Sig Start Date Stop Date Status Note LastModified by Organization Details LastModified Time atorvastati n 40 mg tablet TAKE 1 TABLET BY MOUTH ONCE DAILY FOR 90 DAYS active Not Available Not Available No t Available azithromyci n 250 mg tablet TAKE 2 TABLETS BY MOUTH ON DAY 1, AND THEN TAKE 1 TABLET BY MOUTH ONCE A DAY ON DAY 2 THROUGH DAY 5 active Not Available Not Available No t Available ofloxacin 0.3 % eye drops INSTILL 5 DROPS INTO LEFT EAR TWICE DAILY DIRECTED FOR 7 DAYS 02/21 completed Not Available Not Available Not Available amiodarone 200 mg tablet TAKE 1 TABLET BY MOUTH ONCE DAILY 02/21 completed Not Available Not Available Not Available metoprolol succinate ER 50 mg tablet,exte nded release 24 hr TAKE 1 TABLET BY MOUTH ONCE DAILY FOR HEART DISEASE active Not Available Not Available No t Available fluorouraci l 5 % topical cream APPLY TO THE LEFT ELBOW TWICE A DAY FOR 6 WEEKS active Not Available Not Available No t Available hydralazine 25 mg tablet TAKE 3 TABLETS BY MOUTH THREE TIMES DAILY 02/21 completed Not Available Not Available Not Available ciprofloxac in 250 mg tablet active Not Available Not Available Not Available ciprofloxac in 500 mg tablet TAKE 1 TABLET BY MOUTH TWICE DAILY FOR 10 DAYS active Not Available Not Available No t Available sulfamethox azole 800 mg-trimetho prim 160 mg tablet TAKE 1 TABLET BY MOUTH TWICE DAILY FOR 10 DAYS active Not Available Not Available No t Available omeprazole 40 mg capsule,del ayed release TAKE 1 CAPSULE BY MOUTH ONCE DAILY 30 MINUTES BEFORE BREAKFAST active Not Available Not Available No t Available spironolact one 25 mg tablet TAKE 1 TABLET BY MOUTH ONCE DAILY active Not Available Not Available No t Available levothyroxi ne 75 mcg tablet TAKE 1 TABLET BY MOUTH ONCE DAILY IN THE MORNING ON AN EMPTY STOMACH active Not Available Not Available No t Available tamsulosin 0.4 mg capsule TAKE 1 CAPSULE BY MOUTH ONCE DAILY active Not Available Not Available No t Available hydralazine 100 mg tablet TAKE 1 TABLET BY MOUTH THREE TIMES DAILY 02/21 completed Not Available Not Available Not Available pantoprazol e 40 mg tablet,maria fernanda yed release TAKE 1 TABLET BY MOUTH ONCE DAILY FOR 90 DAYS active Not Available Not Available No t Available metformin 1,000 mg tablet Take 1 tablet twice a day by oral route. active Not Available Not Available No t Available tobramycin 0.3 % eye drops INSTILL 1 DROP INTO AFFECTED EYE EVERY 4 HOURS FOR 5 DAYS active Not Available Not Available No t Available bumetanide 1 mg tablet TAKE 1 TABLET BY MOUTH ONCE DAILY 02/21 completed Not Available Not Available Not Available hydralazine 50 mg tablet TAKE 1 TABLET BY MOUTH TWICE DAILY WITH FOOD active Not Available Not Available No t Available mupirocin 2 % topical ointment APPLY OINTMENT TOPICALLY TWICE DAILY FOR 7 DAYS 02/21 completed Not Available Not Available Not Available ergocalcife rol (vitamin D2) 1,250 mcg (50,000 unit) capsule TAKE 1 CAPSULE BY MOUTH ONCE A WEEK FOR 12 WEEKS THEN TAKE 1,000 UNITS DAILY OF VITAMIN D3 02/21 completed Not Available Not Available Not Available levofloxaci n 500 mg tablet TAKE 1 TABLET BY MOUTH ONCE DAILY active Not Available Not Available No t Available methylpredn isolone 4 mg tablets in a dose pack TAKE DIRECTED 02/21 completed Not Available Not Available Not Available albuterol sulfate HFA 90 mcg/actuati on aerosol inhaler INHALE 1 TO 2 PUFFS BY MOUTH EVERY 4 HOURS NEEDED active Not Available Not Available No t Available cefdinir 300 mg capsule active Not Available Not Available Not Available metformin ER 500 mg tablet,exte nded release 24 hr TAKE 2 TABLETS BY MOUTH ONCE DAILY active Not Available Not Available No t Available tobramycin 0.3 %-dexametha sone 0.1 % eye drops,suspe nsion active Not Available Not Available Not Available Vitamin D3 25 mcg (1,000 unit) capsule TAKE 1 CAPSULE BY MOUTH ONCE DAILY active Not Available Not Available No t Available B Complex 100 active Not Available Not Available Not Available Januvia 25 mg tablet TAKE 1 TABLET BY MOUTH ONCE DAILY 02/21 completed Not Available Not Available Not Available Lantus Solostar U-100 Insulin 100 unit/mL (3 mL) subcutaneou s pen INJECT 22 UNITS SUBCUTANE OUSLY ONCE DAILY FOR DIABETES active Not Available Not Available No t Available BD Ultra-Fine Shavon Pen Needle 32 gauge x active Not Available Not Available Not Available Xarelto 15 mg tablet TAKE 1 TABLET BY MOUTH ONCE DAILY WITH FOOD active Not Available Not Available No t Available OneTouch Verio test strips active Not Available Not Available Not Available Eliquis 5 mg tablet TAKE 1 TABLET BY MOUTH EVERY 12 HOURS 02/21 completed Not Available Not Available Not Available Farxiga 10 mg tablet TAKE 1 TABLET BY MOUTH ONCE DAILY FOR 30 DAYS 02/21 completed Not Available Not Available Not Available OneTouch Verio Flex Meter active Not Available Not Available Not Available OneTouch Delica Plus Lancet 33 gauge active Not Available Not Available Not Available Gemtesa 75 mg tablet Take 1 tablet every day by oral route for 28 days. active Not Available Not Available No t Available Vitals Date Recorded Body height Body mass index (BMI) Body weight Body temperature Provider Name and Address Organization Details Last Updated DateTime 02/21/2023 175.26 cm 27.6 kg/m2 78902.77 g 97.7 [degF] Willie YAN [facility] & [place] 02/21/2023 10:28:19 Date Recorded Body height Provider Name an d Address Organization Details Last Updated DateTime 04/04/2023 175.26 cm Vanessa YAN [facility] & [place] 04/04/2023 10:18:22 Date Recorded Body height Body mass index (BMI) Body weight Body temperature Provider Name and Address Organization Details Last Updated DateTime 04/25/2023 175.26 cm 21.4 kg/m2 16161.89 g 97.7 [degF] Vanessa Greer [facility] & [place] 04/25/2023 09:33:55 Date Recorded Body height Body mass index (BMI) Body weight Body temperature Provider Name and Address Organization Details Last Updated DateTime 05/28/2023 175.26 cm 21.6 kg/m2 30806.49 g 97.8 [degF] Ivoneisaiah Ch [facility] & [place] 05/28/2023 09:59:16 Social History Question Answer Notes LastModified by Organizat ion Details LastModified Time Tobacco Smoking Status [facility] [place] 02/21/2023 10:26:57 What Is Your Level Of Alcohol Consumption? Occasional [email or web address] Information not available 02/21/2023 Do You Or Have You Ever Used Smokeless Tobacco? Currently Chews Tobacco [email or web address] Information not available 02/21/2023 Do You Or Have You Ever Used Any Other Forms Of Tobacco Or Nicotine? Yes [email or web address] Information not available 02/21/2023 Sex: Unknown Functional Status None recorded. Mental Status None recorded. Family History Relationship Description Onset Age of this Age Resolved Age Notes LastModified by Organization Details LastModified Time Mother Family history unknown dec [email or web address] Not available 2022 10:26:01 Father Malignant neoplastic disease dec Not available 2022 10:26:31 Medical History No medical history recorded. Past Encounters Encounter ID Performer Location Encounter Start Date Encounter Closed Date Diagnosis/Indication Diagnosis SNOMED-CT Code Diagnosis ICD10 Code Diagnosis Note [id number] Zackary Chandler Jr, MD [facility] [address] [address] 02/21/2023 09:47:32 02/21/2023 11:09:32 Overactive urinary bladder 912574546 N32.81 Patient with urge urinary incontinen ce. He wears pull-ups for protection . We discussed treatment options and he was placed on samples of Gemtesa today. He will return in 6 weeks in follow-up. Inguinal pain 975141875 R10.2 patient with right-side d groin pain. Recent CT scan showed a left inguinal hernia. There is a bladder diverticul um which would not cause any discomfort . There is also some nonspecifi c perinephri c stranding without obstructio n or masses. Examinatio n shows no evidence of epididymit is or orchitis. No treatment necessary. [id number] [facility] Jr[facility] [address] [address] 04/04/2023 10:14:33 04/04/2023 11:33:10 Benign prostatic hyperplasia with outflow obstruction 544740180 N40.1 Patient with history of BPH. His bladder scan is 177 it was a little higher since being placed on the Gemtesa. His urge and urge incontinen ce have improved on the Gemtesa. Cystoscopy today showed bladder outlet obstructio n due to large prostate. We discussed treatment options for which UroLift was favored. He will think about it and let me know. He will continue the gym Itzel. Overactive urinary bladder 580991977 N32.81 Patient with urge urinary incontinen ce. patient was placed on Gemtesa at his last visit. He states that this has improved his nocturia and urge incontinen ce. We will continue. [id number] Zackary Chandler Jr, MD [facility] [address] [address] 04/25/2023 09:27:42 04/25/2023 10:46:16 Incomplete emptying of urinary bladder due to benign prostatic hypertrophy [id number] 98402 N40.1 patient with history of urinary retention. He underwent UroLift 2 days ago. Six implants were placed. A good result was noted. Voiding trial performed today and 125 cc placed in the patient's bladder and the catheter removed. He was able to void 60 cc. We discussed normal postoperat prasanna side effects such as urinary urgency and frequency. He is to push fluids. I will see him back in 1 month with a bladder scan. [id number] Zackary Chandler Jr, MD [facility] [address] [address] 05/28/2023 09:48:54 05/28/2023 10:48:00 Benign prostatic hyperplasia with outflow obstruction 970140853 N40.1 Patient with history of Urinary retention secondary to BPH. Patient underwent a UroLift procedure last month and returns today in routine follow-up. He states he is voiding much better and is very happy with the results. His bladder scan today shows a residual of 287 but he does have a large right-side d bladder diverticul um which is likely responsibl e for most of this. Health Concerns Section Related Observation LastModified by Organization Detai ls LastModified Time None Recorded Concern Status LastModified by Organization Details LastModified Time None Recorded Advance Directives Directive None Recorded Payers Encounter Date Sequence Insurance Name Policy Number Policy Garcia Covered Member ID Garcia Member ID Guarantor Name 02/21/2023 1 [place] [facility] [id number] Zackary Carrasco 04/04/2023 1 [place] [id number] [place]ary Car[place] [id number] Zackary Carrasco 04/25/2023 1 [place] [facility] [id number] Zackary Carrasco 05/28/2023 1 [place] [facility] [id number] Zackary Carrasco Notes Date Note Type Note Provider Name and Address Organization Details Recorded Time 02/21/2023 text/html Patient is a 72-year-old white male referred from Dr. SMITH for reported epididymitis. Patient states that he saw Dr. Le because of some right inguinal discomfort. A CT scan was performed that showed a small left renal cyst, bilateral nonspecific perinephric stranding without hydronephrosis or mass. There was a diverticulum of the posterior right urinary bladder, the prostate is mildly prominent and there is a fat containing left inguinal hernia.Patient is wearing depends and has urinary incontinence. States that the incontinence is associated with a strong urge to void. States he gets up at night 4-5 times an evening as well. He denies any significant caffeine use. Bladder scan today is 132 cc. Patient is on tamsulosin. Zackary Chandler Jr, MD [address] [place] [address], [address], [address], [facility] & [place] 02/21/2023 13:00:48 04/04/2023 text/html patient is a 72-year-old white male with history of urgency, urge incontinence, BPH and nocturia. It is initial visit in February patient was wearing depends for urinary incontinence. He also was getting up at night 4 times an evening. Was placed on samples of Gemtesa at that time. He returns today and states that the medication has helped with his nocturia and he is now getting up at night 3 times. He states his urge and urge incontinence have improved but still has it occasionally. His bladder scan today is 177 which is higher than the previous of 132. He continues on tamsulosin. Zackary Chandler Jr, MD [address] [place] [address], [address], [address], [facility] 04/04/2023 12:48:44 04/25/2023 text/html Patient is a 72-year-old white male with history of urinary retention. He underwent UroLift 2 days ago in 6 implants were placed. On cystoscopy and a lot of whitish debris in his bladder and a large right bladder diverticulum was noted. All the debris was evacuated in the implants were performed successfully. He denies any problems postoperatively. Zackary Chandler Jr, MD [address] [place] [address], [address], [address], [place] [facility] - [place] & [place] 04/25/2023 13:16:30 05/28/2023 text/html patient is a 72-year-old white male with history of Urinary retention secondary to BPH. He underwent a UroLift implant on April 22. He returns today in follow-up and states he is voiding much better in his very happy with his state of urination. Patient was noted to have a large bladder diverticulum on the right side on cystoscopy. There was noted to be a lot of whitish debris in diverticulum at that time. The neck of the diverticulum was large enough to place the scope in it. His bladder scan today shows a residual 287 cc and I think most of that is from the bladder diverticulum. We have previously discussed coude maneuver to help empty the urine out the bladder diverticulum. Zackary Chandler Jr, MD [address] [place] [address], [address], [place], [address], [place] - [facility] & [place] 05/28/2023 13:02:31
--- OUTSIDE RECORDS SUMMARY | 2025-01-24 10:25 | XMS_ITS ---
Care Plan - [facility], [facility] Created on: January 24, 2025 Zackary Carrasco : 1950 Sex: Male Author Organization [facility] Address [address] [place] [phone] Phone Care Team Providers Care Syrup Maker Cook Name Role Phone Ghulam ARIAS, Kristofer Saenz Unavailable [phone] BRII ENRIQUEZ Unavailable [phone]
--- OUTSIDE RECORDS SUMMARY | 2025-01-24 10:25 | XMS_ITS | Clinical Summary ---
Author Organization [facility] Address [address] [place] [address] Phone Care Team Providers Care Train Station Server Name Role Phone Ghulam ARIAS, Kristofer Saenz Unavailable Unavail able BRII ENRIQUEZ Unavailable [phone] Reason for Visit and Chief Complaint The Chief Complaint is: Left elbow pain Problems Includes: Problems addressed during this encounter and other active Problems All Visits Onset Date Resolved Date Provider Condition S tatus Left Elbow Joint Pain 06/23/2023 Giuseppe Winkler PA-C Active Last Documented On 3 12:34PM ; [facility] Plan of Treatment Fall Risk Assessment: This [...] with the patient. - Last Documented On 07/03/2023 9:58AM ; [facility] Radiographically he is still doing well. I think again we can transition him to casting at this point. He understands that this can leave him with stiffness due to the immobilization. We will see him 2 weeks cast off x-ray on arrival - Last Documented On 07/03/2023 9:58AM ; [facility] His wound is well-healing at this point so we will transition him to a long-arm cast. Cast care instructions were given - Last Documented On 07/03/2023 9:58AM ; [facility] Instructions to patient Intervention and counseling on cessation of tobacco use Last Documented On 3 1:51PM ; [facility] Lose weight Last Documented On 3 1:51PM ; [facility] Assessments Includes: Assessments from this encounter Findings - Overweight - Last Documented On 07/03/2023 9:58AM ; [facility] Left distal humerus fracture - Last Documented On 07/03/2023 9:58AM ; [facility] Instructions Includes: Instructions from this encounter Instructions to patient Intervention and counseling on cessation of tobacco use Last Documented On 3 1:51PM ; [facility] Lose weight Last Documented On 3 1:51PM ; [facility] Medical Equipment - Implanted Devices Includes: Current Devices No Medical Equipment Recorded Medications Includes: Medications discussed during this encounter and other current Medications Current Medications (continue as prescribed) Ciprofloxacin HCl 500 MG Oral Tablet 06/18/2023 Prov ider: BRII ENRIQUEZ Diagnosis: Last Documented On 3 12:33PM By Ramona Pastor ; [facility] Insulin Glargine Solostar 10 0 UNIT/ML Subcutaneous Solution Pen-injector 06/17/2023 Provider: OSMAR ENRIQUEZ Diagnosis: Last Documented On 3 12:33PM By Ramona Pastor ; [facility] metFORMIN HCl ER 500 MG Oral Tablet Extended Release 24 Hour 06/17/2023 Provider: BRII ENRIQUEZ Diagnosis: Last Documented On 3 12:33PM By Ramona Pastor ; [facility] Metoprolol Succinate ER 50 M G Oral Tablet Extended Release 24 Hour 06/16/2023 Provider: BRII ENRIQUEZ Diagnosis: Last Documented On 3 12:33PM By Ramona Pastor ; [facility] Gemtesa 75 MG Oral Tablet 05/22/2023 Provider: DIO MORRIS MD Diagnosis: Last Documented On 3 12:33PM By Ramona aPstor ; [facility] Atorvastatin Calcium 40 MG Oral Tablet 05/20/2023 Pr ovider: Molly Loyd NP Diagnosis: Last Documented On 3 12:33PM By Ramona Pastor ; [facility] Omeprazole 40 MG Oral Capsule Delayed Release 05/20/20 Provider: Molly Loyd NP Diagnosis: Last Documented On 3 12:33PM By Ramona Pastor ; [facility] Pantoprazole Sodium 40 MG Or al Tablet Delayed Release 05/20/2023 Provider: BRII ENRIQUEZ Diagnosis: Last Documented On 3 12:33PM By Ramona Pastor ; [facility] Tamsulosin HCl 0.4 MG Oral Capsule 05/20/2023 Provid er: Molly Loyd NP Diagnosis: Last Documented On 3 12:33PM By Ramona Pastor ; [facility] Xarelto 15 MG Oral Tablet 05/20/2023 Provider: MARY JO ENRIQUEZ Diagnosis: Last Documented On 3 12:33PM By Ramona Pastor ; [facility] levoFLOXacin 500 MG Oral Tablet 04/22/2023 Provider: ZACKARY MORRIS MD Diagnosis: Last Documented On 3 12:33PM By Ramona Pastor ; [facility] Metoprolol Succinate ER 50 M G Oral Tablet Extended Release 24 Hour 03/24/2023 Provider: Diagnosis: Last Documented On 3 12:33PM By Ramona Pastor ; [facility] Tobramycin 0.3% Ophthalmic Solution 02/14/2023 Provi katelin: BRII ENRIQUEZ Diagnosis: Last Documented On 3 12:33PM By Ramona Pastor ; [facility] Medications Administered Includes: Administered Medications from this encounter No Administered Medications Recorded Vital Signs Includes: Vital Signs from this encounter Vital Name 06/30/2023 01:52P Height (in) 69 Weight (lb) 181 Body Mass Index 26.7 Body Surface Area 2 Note: hdv Last Documented: On 06/30/2023 1:52PM ; [facility] Results Includes: Results discussed during this encounter No Results Recorded For Specified Dates History of Present Illness Includes: History of Present Illness from this encounter HPI Zackary Carrasco is a 72 year old male. [...] Tobacco use 06/23/2023 Last Documented On 3 1:51PM ; [facility] Caffeine use 06/23/2023 Last Documented On 3 1:51PM ; [facility] No recent change in diet 06/23/2023 Last Documented On 3 1:51PM ; [facility] Not exercising regularly 06/23/2023 Last Documented On 3 1:51PM ; [facility] Not using alcohol 06/23/2023 Last Documented On 3 1:51PM ; [facility] Not using drugs 06/23/2023 Last Documented On 3 1:51PM ; [facility] Yes, current smoker. 06/23/2023 Last Documented On 3 1:51PM ; [facility] Smoking Status Unknown Procedures and Surgical History Includes: Procedures from this encounter Procedures Code Diagnosis Performing Provider Service L ocation Service Date intervention and counseling on cessation of tobacco use 4000F Last Documented On 3 1:51PM ; [facility] use of tobacco assessment performed 1000F Last Documented On 3 1:51PM ; [facility] patient screened for future fall risk: documentation of any fall with injury in past year 1100F Last Documented On 3 1:51PM ; [facility] an X-ray was performed 61050 Last Documented On 3 1:51PM ; [facility] Surgical History Last Updated History of appendectomy 06/23/2023 Last Documented On 3 1:51PM ; [facility] History of heart surgery 06/23/2023 Last Documented On 3 1:51PM ; [facility] History of hernia repair 06/23/2023 Last Documented On 3 1:51PM ; [facility] Medical History Includes: Medical History addressed during this encounter Description Last Updated History of arthritis 06/23/2023 Last Documented On 3 1:51PM ; [facility] History of diabetes mellitus 06/23/2023 Last Documented On 3 1:51PM ; [facility] History of Fractures 06/23/2023 Last Documented On 3 1:51PM ; [facility] History of Heart Attack 06/23/2023 Last Documented On 3 1:51PM ; [facility] History of heart disease 06/23/2023 Last Documented On 3 1:51PM ; [facility] History of Heartburn / Acid Reflux 06/23 Last Documented On 3 1:51PM ; [facility] History of History of Gallbladder 2022 Last Documented On 3 1:51PM ; [facility] History of Hypertension 06/23/2023 Last Documented On 3 1:51PM ; [facility] History of Previous Fractures 06/23/2023 Last Documented On 3 1:51PM ; [facility] History of Thyroid Disease 06/23/2023 Last Documented On 3 1:51PM ; [facility] Family History Includes: Family History addressed during this encounter Description Last Updated Diabetes mellitus 06/23/2023 Last Documented On 3 1:51PM ; [facility] Family history of cancer 06/23/2023 Last Documented On 3 1:51PM ; [facility] Review of Systems Includes: Review of Systems [...] Active Last Documented On 3 12:42PM ; [facility] Encounters Encounter Provider Location Date Check-In Time Check-Out Time Diagnosis Follow Up Jaz Winkler PA-C [facility] B 3 1:41PM 2:12PM Overweight Insurance Includes: Active Insurance Policies Plan Name Member ID Group # Subscriber Relationship Effect prasanna Dates 1 - [employer] [place] Medicare [id number] Zackary Carrasco Self 08/07/2022 - Un known Clinical Notes Includes: Clinical Notes from this encounter * Progress note Date Encounter Last Documented by 06/30/2023 Follow Up Last documented on 07/03/2023; 9:58 AM, Jaz Winkler PA-C; [facility] Active Problems & Conditions - Left Elbow Joint Pain Chief Complaint The Chief Complaint is: Left elbow pain. Referred Here Referred by. History of Present Illness Zackary Carrasco is a 72 year old male. [...] Reflux Thyroid Disease Hypertension. Diabetes mellitus. Arthritis Procedural: - History of Gallbladder - Previous Fractures Surgical: - Heart surgery - Appendectomy - Hernia repair Social History Yes, current smoker. Current diet: [...] allergic reaction. Physical Findings - Vitals taken 06/30/2023 01:52 pm hdv Height 69 in Weight 181 lbs Body Mass Index 26.7 kg/m2 Body Surface Area 2 m2 Patient is awake and alert. Well groomed and nourished. No acute distress. Normal gait and station. Appropriate mood and affect. Incisional wound is well-healed at this point. No sign of infection normal neurovascular status he does have chronic bony deformity to the midshaft forearm Tests X-rays 2 view of the distal humerus show maintained alignment of nondisplaced fracture Assessment - Overweight Left distal humerus fracture Previous Tests Imaging: X-Ray: [...] therapy has been discussed with the patient. Radiographically he is still doing well. I think again we can transition him to casting at this point. He understands that this can leave him with stiffness due to the immobilization. We will see him 2 weeks cast off x-ray on arrival His wound is well-healing at this point so we will transition him to a long-arm cast. Cast care instructions were given Notes This dictation was done with voice recognition software and may contain errors and omissions. Practice Management Use of tobacco assessment performed and patient screened for future fall risk documentation of any fall with injury in past year. Care Team - BRII ENRIQUEZ
--- OUTSIDE RECORDS SUMMARY | 2025-01-24 10:25 | XMS_ITS | Clinical Summary ---
Author Organization [facility] Address [address] [place] [phone] Phone Care Team Providers Care News Producer Name Role Phone Ghulam ARIAS, Kristofer Saenz Unavailable Unavail able BRII ENRIQUEZ Unavailable [phone] Reason for Visit and Chief Complaint The Chief Complaint is: Left elbow pain Problems Includes: Problems addressed during this encounter and other active Problems Current Visit Onset Date Resolved Date Provider Arti felix Status Left Elbow Joint Pain 06/23/2023 Giuseppe Winkler PA-C Active Last Documented On 12:34PM ; [facility] Plan of Treatment Fall Risk Assessment: This [...] with the patient. - Last Documented On 06/24/2023 1:31PM ; [facility] I recommended casting but I think we need to take care of this wound from his dermatologic procedure. Placement of a long-arm posterior splint. We will dress the room wound appropriately we will see him in a week with x-rays will hopefully be able to switch him to a long-arm cast. I did tell him that this injury does sometimes cause permanent extension stiffness and loss. - Last Documented On 06/24/2023 1:31PM ; [facility] Instructions to patient Intervention and counseling on cessation of tobacco use Last Documented On 3 1:03PM ; [facility] Lose weight Last Documented On 3 1:02PM ; [facility] Assessments Includes: Assessments from this encounter Findings - Overweight - Last Documented On 06/24/2023 1:31PM ; [facility] Surgical wound left elbow - Last Documented On 06/24/2023 1:31PM ; [facility] nondisplaced left distal humerus fracture - Last Documented On 06/24/2023 1:31PM ; [facility] Instructions Includes: Instructions from this encounter Instructions to patient Intervention and counseling on cessation of tobacco use Last Documented On 3 1:03PM ; [facility] Lose weight Last Documented On 3 1:02PM ; [facility] Medical Equipment - Implanted Devices Includes: Current Devices No Medical Equipment Recorded Medications Includes: Medications discussed during this encounter and other current Medications Current Medications (continue as prescribed) Ciprofloxacin HCl 500 MG Oral Tablet 06/18/2023 Prov ider: BRII ENRIQUEZ Diagnosis: Last Documented On 3 12:33PM By Ramona Pastor ; [facility] Insulin Glargine Solostar 10 0 UNIT/ML Subcutaneous Solution Pen-injector 06/17/2023 Provider: OSMAR ENRIQUEZ Diagnosis: Last Documented On 3 12:33PM By Ramona Pastor ; [facility] metFORMIN HCl ER 500 MG Oral Tablet Extended Release 24 Hour 06/17/2023 Provider: BRII ENRIQUEZ Diagnosis: Last Documented On 3 12:33PM By Ramona Pastor ; [facility] Metoprolol Succinate ER 50 M G Oral Tablet Extended Release 24 Hour 06/16/2023 Provider: BRII ENRIQUEZ Diagnosis: Last Documented On 3 12:33PM By Ramona Pastor ; [facility] Gemtesa 75 MG Oral Tablet 05/22/2023 Provider: DIO MORRIS MD Diagnosis: Last Documented On 3 12:33PM By Ramona Pastor ; [facility] Atorvastatin Calcium 40 MG Oral Tablet 05/20/2023 Pr ovider: Molly Loyd NP Diagnosis: Last Documented On 3 12:33PM By Ramona Pastor ; [facility] Omeprazole 40 MG Oral Capsule Delayed Release 05/20/20 Provider: Molly Loyd NP Diagnosis: Last Documented On 3 12:33PM By Ramona Pastor ; [facility] Pantoprazole Sodium 40 MG Or al Tablet Delayed Release 05/20/2023 Provider: BRII ENRIQUEZ Diagnosis: Last Documented On 3 12:33PM By Ramona Pastor ; [facility] Tamsulosin HCl 0.4 MG Oral Capsule 05/20/2023 Provid er: Molly Loyd NP Diagnosis: Last Documented On 3 12:33PM By Ramona Pastor ; [facility] Xarelto 15 MG Oral Tablet 05/20/2023 Provider: MARY JO ENRIQUEZ Diagnosis: Last Documented On 3 12:33PM By Ramona Pastor ; [facility] levoFLOXacin 500 MG Oral Tablet 04/22/2023 Provider: DEION MORRIS MD Diagnosis: Last Documented On 3 12:33PM By Ramona Pastor ; [facility] Metoprolol Succinate ER 50 M G Oral Tablet Extended Release 24 Hour 03/24/2023 Provider: Diagnosis: Last Documented On 3 12:33PM By Ramona Pastor ; [facility] Tobramycin 0.3% Ophthalmic Solution 02/14/2023 Provi katelin: BRII ENRIQUEZ Diagnosis: Last Documented On 3 12:33PM By Ramona Pastor ; [facility] Medications Administered Includes: Administered Medications from this encounter No Administered Medications Recorded Vital Signs Includes: Vital Signs from this encounter Vital Name 06/23/2023 01:01P Height (in) 69 Weight (lb) 181 Body Mass Index 26.7 Body Surface Area 2 Note: hdv Last Documented: On 06/23/2023 1:01PM ; [facility] Results Includes: Results discussed during this encounter [...] 06/23/2023 Last Documented On 3 1:31PM ; [facility] Caffeine use 06/23/2023 Last Documented On 3 1:31PM ; [facility] No recent change in diet 06/23/2023 Last Documented On 3 1:31PM ; [facility] Not exercising regularly 06/23/2023 Last Documented On 3 1:31PM ; [facility] Not using alcohol 06/23/2023 Last Documented On 3 1:31PM ; [facility] Not using drugs 06/23/2023 Last Documented On 3 1:31PM ; [facility] Yes, current smoker. 06/23/2023 Last Documented On 3 1:31PM ; [facility] Smoking Status Unknown Procedures and Surgical History Includes: Procedures from this encounter Procedures Code Diagnosis Performing Provider Service L ocation Service Date intervention and counseling on cessation of tobacco use 4000F Last Documented On 3 1:03PM ; [facility] use of tobacco assessment performed 1000F Last Documented On 3 1:02PM ; [facility] patient screened for future fall risk: documentation of any fall with injury in past year 1100F Last Documented On 3 1:02PM ; [facility] an X-ray was performed 52727 Last Documented On 3 1:02PM ; [facility] Surgical History Last Updated History of appendectomy 06/23/2023 Last Documented On 3 1:31PM ; [facility] History of heart surgery 06/23/2023 Last Documented On 3 1:31PM ; [facility] History of hernia repair 06/23/2023 Last Documented On 3 1:31PM ; [facility] Medical History Includes: Medical History addressed during this encounter Description Last Updated History of arthritis 06/23/2023 Last Documented On 3 1:31PM ; [facility] History of diabetes mellitus 06/23/2023 Last Documented On 3 1:31PM ; [facility] History of Fractures 06/23/2023 Last Documented On 3 1:31PM ; [facility] History of Heart Attack 06/23/2023 Last Documented On 3 1:31PM ; [facility] History of heart disease 06/23/2023 Last Documented On 3 1:31PM ; [facility] History of Heartburn / Acid Reflux 06/23 Last Documented On 3 1:31PM ; [facility] History of History of Gallbladder 2022 Last Documented On 3 1:31PM ; [facility] History of Hypertension 06/23/2023 Last Documented On 3 1:31PM ; [facility] History of Previous Fractures 06/23/2023 Last Documented On 3 1:31PM ; [facility] History of Thyroid Disease 06/23/2023 Last Documented On 3 1:31PM ; [facility] Family History Includes: Family History addressed during this encounter Description Last Updated Diabetes mellitus 06/23/2023 Last Documented On 3 1:31PM ; [facility] Family history of cancer 06/23/2023 Last Documented On 3 1:31PM ; [facility] Review of Systems Includes: Review of Systems [...] Active Last Documented On 3 12:42PM ; [facility] Encounters Encounter Provider Location Date Check-In Time Check-Out Time Diagnosis Physician Specified Jaz Winkler PA-C [facility] B 06/23/20 23 12:26PM 12:50PM Overweight Insurance Includes: Active Insurance Policies Plan Name Member ID Group # Subscriber Relationship Effect prasanna Dates 1 - [facility] ([place]) Medicare [id number] Deion Carrasco Self 08/07/2022 - Un known Clinical Notes Includes: Clinical Notes from this encounter * Progress note Date Encounter Last Documented by 06/23/2023 Physician Specified Last yumiko guajardo on 06/24/2023; 1:31 PM, Jaz Winkler PA-C; [facility] Active Problems & Conditions - Left [...] allergic reaction. Physical Findings - Vitals taken 06/23/2023 01:01 pm hdv Height 69 in Weight 181 lbs Body Mass Index 26.7 kg/m2 Body Surface Area 2 m2 general Exam: The patient is awake and alert. No acute distress. Normal mood and affect for age. Well groomed and nourished Neuro: Sensation was intact to light touch over the extremity. Vascular: +2 radial pulses. No edema. Derm: No signs of active infection. no acute skin tears abrasions or injuries from the fall Musculoskeletal: Normal gait and station. No muscle atrophy. No joint effusion. Chronic bony deformity of the forearm. No deformity of the elbow there is a small area of has a wound about the size of a quarter from recent dermatologic procedure. No sign of infection.He cannot complete supination which he says is chronic for him Tests He has a nondisplaced incomplete fracture of the distal humerus and 2 views on left elbow x-rays. The joint is stable Assessment - Overweight Surgical wound left elbow nondisplaced left distal humerus fracture Previous Tests Imaging: [...] therapy has been discussed with the patient. I recommended casting but I think we need to take care of this wound from his dermatologic procedure. Placement of a long-arm posterior splint. We will dress the room wound appropriately we will see him in a week with x-rays will hopefully be able to switch him to a long-arm cast. I did tell him that this injury does sometimes cause permanent extension stiffness and loss. Notes This dictation was done with voice recognition software and may contain errors and omissions. Practice Management Use of tobacco assessment performed and patient screened for future fall risk documentation of any fall with injury in past year. Care Team - BRII ENRIQUEZ
--- OUTSIDE RECORDS SUMMARY | 2025-01-24 10:25 | XMS_ITS ---
Laboratory report Created on: December 12, 2024 DEION ANTOINE : 1950 Sex: Male Author Organization Unknown PROBLEMS Problems List Code Description RESULTS Laboratory Orders Date Order Code Test 2024-12-08 [id number] TRIIODOTHYRONINE (T3), FREE Laboratory Results Date LOINC Test Value Unit Reference Range Interpre tation 2024-12-08 3051-0 TRIIODOTHYRONINE (T3), FREE 2.4 PG/ML 2.0-4.4
--- OUTSIDE RECORDS SUMMARY | 2025-01-24 10:25 | XMS_ITS | Clinical Summary ---
Author Organization [facility] , [facility] Address [address] [place] [phone] Phone Care Team Providers Care Production Dispatcher Name Role Phone Ghulam ARIAS, Kristofer Saenz Unavailable Unavail able BRII ENRIQUEZ Unavailable [phone] Reason for Visit and Chief Complaint The Chief Complaint is: Left elbow pain Problems Includes: Problems addressed during this encounter and other active Problems All Visits Onset Date Resolved Date Provider Condition S tatus Left Elbow Joint Pain 06/23/2023 Giuseppe Winkler PA-C Active Last Documented On 12:34PM ; [facility], [facility] Plan of Treatment Fall Risk [...] with the patient. - Last Documented On 08/04/2023 12:50PM ; [facility] Currently he is doing very well we discussed restrictions over the next 2 weeks. He may have some permanent loss of extension. 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 We will see him back as needed - Last Documented On 08/04/2023 12:50PM ; [facility] Instructions to patient Intervention and counseling on cessation of tobacco use Last Documented On 12:43PM ; [facility], [facility] Lose weight Last Documented On 12:43PM ; [facility], [facility] Assessments Includes: Assessments from this encounter Findings - Overweight - Last Documented On 08/04/2023 12:50PM ; [facility] Left distal humerus fracture - Last Documented On 08/04/2023 12:50PM ; [facility], [facility] Instructions Includes: Instructions from this encounter Instructions to patient Intervention and counseling on cessation of tobacco use Last Documented On 3 12:43PM ; [facility] Lose weight Last Documented On 3 12:43PM ; [facility], [facility] Medical Equipment - Implanted Devices Includes: Current Devices No Medical Equipment Recorded Medications Includes: Medications discussed during this encounter and other current Medications Current Medications (continue as prescribed) Ciprofloxacin HCl 500 MG Oral Tablet 06/18/2023 Prov ider: BRII ENRIQUEZ Diagnosis: Last Documented On 3 12:33PM By Ramona Pastor ; [facility] Insulin Glargine Solostar 10 0 UNIT/ML Subcutaneous Solution Pen-injector 06/17/2023 Provider: OSMAR ENRIQUEZ Diagnosis: Last Documented On 3 12:33PM By Ramona Pastor ; [facility] metFORMIN HCl ER 500 MG Oral Tablet Extended Release 24 Hour 06/17/2023 Provider: BRII ENRIQUEZ Diagnosis: Last Documented On 3 12:33PM By Ramona Pastor ; [facility] Metoprolol Succinate ER 50 M G Oral Tablet Extended Release 24 Hour 06/16/2023 Provider: BRII ENRIQUEZ Diagnosis: Last Documented On 3 12:33PM By Ramona Pastor ; [facility] Gemtesa 75 MG Oral Tablet 05/22/2023 Provider: DIO MORRIS MD Diagnosis: Last Documented On 3 12:33PM By Ramona Pastor ; [facility] Atorvastatin Calcium 40 MG Oral Tablet 05/20/2023 Pr ovider: Molly Loyd [employer]PER[employer] Diagnosis: Last Documented On 3 12:33PM By Ramona Pastor ; [facility] Omeprazole 40 MG Oral Capsule Delayed Release 05/20/20 Provider: Molly Loyd NP Diagnosis: Last Documented On 3 12:33PM By Ramona Pastor ; [facility] Pantoprazole Sodium 40 MG Or al Tablet Delayed Release 05/20/2023 Provider: BRII ENRIQUEZ Diagnosis: Last Documented On 3 12:33PM By Ramona Pastor ; [facility], [facility] Tamsulosin HCl 0.4 MG Oral Capsule 05/20/2023 Provid er: Molly Loyd NP Diagnosis: Last Documented On 3 12:33PM By Ramona Pastor ; [facility] Xarelto 15 MG Oral Tablet 05/20/2023 Provider: MARY JO ENRIQUEZ Diagnosis: Last Documented On 3 12:33PM By Ramona Pastor ; [facility] levoFLOXacin 500 MG Oral Tablet 04/22/2023 Provider: DEION MORRIS MD Diagnosis: Last Documented On 3 12:33PM By Ramona Pastor ; [facility] Metoprolol Succinate ER 50 M G Oral Tablet Extended Release 24 Hour 03/24/2023 Provider: Diagnosis: Last Documented On 3 12:33PM By Ramona Pastor ; [facility], [facility] Tobramycin 0.3% Ophthalmic Solution 02/14/2023 Provi katelin: BRII ZOE Diagnosis: Last Documented On 3 12:33PM By Ramona Pastor ; [facility] Medications Administered Includes: Administered Medications from this encounter No Administered Medications Recorded Vital Signs Includes: Vital Signs from this encounter Vital Name 08/04/2023 12:43P Height (in) 69 Weight (lb) 181 Body Mass Index 26.7 Body Surface Area 2 Note: hdv Last Documented: On 08/04/2023 12:43P M ; [facility], [facility] Results Includes: Results discussed during this encounter No Results Recorded For Specified Dates History of Present Illness Includes: History of Present Illness from this encounter GLEN Carrasco is a 72 year old male. - Allergy list reviewed - Problem list reviewed - Medication list reviewed - Previous history of new onset pain 06/10/2023 following a fall - Pain is constant (100% of the time) - Patient pain level from 1-10: 5 Nothing makes the pain better or worse - Yes, previous treatment. Patient is in today for follow-up on his elbow he says he is feeling better Social History Description Last Updated Tobacco use 06/23/2023 Last Documented On 3 12:43PM ; [facility], [facility] Caffeine use 06/23/2023 Last Documented On 3 12:43PM ; [facility], [facility] No recent change in diet 06/23/2023 Last Documented On 3 12:43PM ; [facility], [facility] Not exercising regularly 06/23/2023 Last Documented On 3 12:43PM ; [facility] Not using alcohol 06/23/2023 Last Documented On 3 12:43PM ; [facility], [facility] Not using drugs 06/23/2023 Last Documented On 3 12:43PM ; [facility], [facility] Yes, current smoker. 06/23/2023 Last Documented On 3 12:43PM ; [facility], [facility] Smoking Status Unknown Procedures and Surgical History Includes: Procedures from this encounter Procedures Code Diagnosis Performing Provider Service L ocation Service Date intervention and counseling on cessation of tobacco use 4000F Last Documented On 3 12:43PM ; [facility], [facility] use of tobacco assessment performed 1000F Last Documented On 3 12:43PM ; [facility], [facility] patient screened for future fall risk: documentation of any fall with injury in past year 1100F Last Documented On 3 12:43PM ; [facility], [facility] an X-ray was performed 02562 Last Documented On 3 12:43PM ; [facility], [facility] Surgical History Last Updated History of appendectomy 06/23/2023 Last Documented On 3 12:43PM ; [facility] History of heart surgery 06/23/2023 Last Documented On 3 12:43PM ; [facility], [facility] History of hernia repair 06/23/2023 Last Documented On 3 12:43PM ; [facility], [facility] Medical History Includes: Medical History addressed during this encounter Description Last Updated History of arthritis 06/23/2023 Last Documented On 3 12:43PM ; [facility] History of diabetes mellitus 06/23/2023 Last Documented On 3 12:43PM ; [facility], [facility] History of Fractures 06/23/2023 Last Documented On 3 12:43PM ; [facility], [facility] History of Heart Attack 06/23/2023 Last Documented On 3 12:43PM ; [facility], [facility] History of heart disease 06/23/2023 Last Documented On 3 12:43PM ; [facility], [facility] History of Heartburn / Acid Reflux 06/23 Last Documented On 3 12:43PM ; [facility], [facility] History of History of Gallbladder 2022 Last Documented On 3 12:43PM ; [facility], [facility] History of Hypertension 06/23/2023 Last Documented On 3 12:43PM ; [facility], [facility] History of Previous Fractures 06/23/2023 Last Documented On 3 12:43PM ; [facility], [facility] History of Thyroid Disease 06/23/2023 Last Documented On 3 12:43PM ; [facility], [facility] Family History Includes: Family History addressed during this encounter Description Last Updated Diabetes mellitus 06/23/2023 Last Documented On 3 12:43PM ; [facility], [facility] Family history of cancer 06/23/2023 Last Documented On 3 12:43PM ; [facility], [facility] Review of Systems Includes: Review [...] Active Last Documented On 3 12:42PM ; [facility], [facility] Encounters Encounter Provider Location Date Check-In Time Check-Out Time Diagnosis Follow Up Jaz iWnkler PA-C [facility] 3 12:30PM 12:52PM Overweight Insurance Includes: Active Insurance Policies Plan Name Member ID Group # Subscriber Relationship Effect prasanna Dates 1 - [employer] [facility] ([place]) Medicare [id number] Deion Carrasco Self 08/07/2022 - Un known Clinical Notes Includes: Clinical Notes from this encounter * Progress note Date Encounter Last Documented by 08/04/2023 Follow Up Last documented on 08/04/2023; 12:50 PM, Jaz Winkler PA-C; [facility] Active Problems & Conditions - Left [...] better or worse - Yes, previous treatment. Patient is in today for follow-up on his elbow he says he is feeling better Current Medication - Atorvastatin Calcium 40 MG [...] allergic reaction. Physical Findings - Vitals taken 08/04/2023 12:43 pm hdv Height 69 in Weight 181 [...] station. No muscle atrophy. No joint effusion. He has chronic deformity in the forearm he has limited extension minus about 20 degrees but he has no pain to palpation or motion. Tests X-rays show maintained alignment distal humerus fracture. There is callus anteriorly Assessment - Overweight Left distal humerus fracture [...] therapy has been discussed with the patient. Currently he is doing very well we discussed restrictions over the next 2 weeks. He may have some permanent loss of extension. 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 We will see him back as needed Notes This dictation was done with voice recognition software and may contain errors and omissions. Practice Management Use of tobacco assessment performed and patient screened for future fall risk documentation of any fall with injury in past year. Care Team - BRII ENRIQUEZ
--- NOTE | 2025-01-24 10:29 | XR_ITS ---
FINAL REPORT CLINICAL HISTORY: Shortness of breath COMPARISON: 12/24/2024 FINDINGS: A portable view of the chest was obtained. The patient is status post median sternotomy. There is stable cardiomegaly. There is no focal infiltrate, pleural effusion, or pneumothorax. IMPRESSION: No significant interval change. Reviewed, Interpreted and Dictated by Nilam العلي MD Transcribed by Sarai Jarquin Authenticated and [facility]
--- NOTE | 2025-01-24 10:31 | ED_ITS ---
Discharge Plan Disposition Patient Disposition: Admitted Condition: Fair Clinical Impressions Clinical Impression: Congestive heart failure, Atrial flutter by electrocardiogram Discharge ED Provider: Walker Damon General Adult HPI <QUITA Lerner - Last Filed: 01/24/25 12:23> General Chief complaint: Shortness of Breath/Dyspnea Stated complaint: soa Time Seen by Provider: 01/24/25 10:19 Mode of Arrival: EMS Source of Information: Patient Limitations: No Limitations History of Present Illness HPI narrative: 74-year-old male presents to the emergency department via EMS for shortness of breath, that for started on Friday, worsened around 8 AM this morning, denies any fever chills cough congestion sore throat, denies any chest pain, denies any abdominal pain, did have an episode of nausea and some phelmgn this morning but no real vomiting episode, diarrhea no constipation, no urinary type symptomatology, patient is a former smoker, has other past medical history consistent with paroxysmal atrial fibrillation on anticoagulant therapy, artery stenosis, pulmonary hypertension, CHF with last echocardiogram revealing an ejection fraction of 30%, in December 2024, CKD, type 2 diabetes, coronary artery disease status post 3-4 stent placements, and x 2 CABG and ablation therapy however this is data deficient, hypothyroidism, presbycusis, patient is on dual antiplatelet therapy with Plavix aspirin, hyperlipidemia. History of vitals notable for tachycardia to 130 bpm, SpO2 within normal limits, BP stable at this time. Also of note, discussing this with the patient's family with the bedside, patient was recently given a LifeVest , per cardiology, he has not been wearing this due to uncomfortable fit. Patient also endorses a 3 to 5 pound weight gain over the last several days. Onset (ago): hour(s) Related Data Home Medications ?Medication ?Instructions ?Recorded ?Confirmed levothyroxine 88 mcg tablet 88 mcg PO DAILY 12/22/24 01/24/25 melatonin 3 mg capsule 3 mg PO HS PRN Sleep 12/22/24 01/24/25 atorvastatin 40 mg tablet 40 mg PO HS 12/23/24 01/24/25 clopidogrel 75 mg tablet 75 mg PO DAILY 12/23/24 01/24/25 omeprazole 40 mg capsule,delayed 40 mg PO DAILY 12/23/24 01/24/25 release bumetanide 0.5 mg tablet 0.5 mg PO DAILY 01/24/25 01/24/25 isosorbide dinitrate 20 mg tablet 20 mg PO TID 01/24/25 01/24/25 metoprolol succinate 25 mg 25 mg PO DAILY 01/24/25 01/24/25 tablet,extended release 24 hr Previous Rx's ?Medication ?Instructions ?Recorded aspirin 81 mg tablet,delayed 81 mg PO DAILY #90 tabs 12/08/24 release (Adult Low Dose Aspirin) cholecalciferol (vitamin D3) 1,250 1,250 mcg PO WEEKLY 90 days #13 12/08/24 mcg (50,000 unit) oral wafer wafers ferrous sulfate 325 mg (65 mg 325 mg PO DAILY #90 tabs 12/08/24 iron) tablet insulin lispro 100 unit/mL 1 sliding scale dose SQ 12/08/24 subcutaneous pen USEASDIRECTD #15 mL empagliflozin 10 mg tablet 10 mg PO DAILY #90 tabs 12/14/24 (Jardiance) hydralazine 25 mg tablet 25 mg PO TID 30 days #90 tabs 12/28/24 Allergies Allergy/AdvReac Type Severity Reaction Status Date / Time amoxicillin Allergy Rash Verified 12/31/24 11:39 Penicillins Allergy Rash Verified 12/31/24 11:39 [facility] <QUITA Lerner - Last Filed: 01/24/25 12:23> [facility] Disclaimer: The information contained in this section may have been updated after the patient was seen, as this information can be updated by other users. Medical History Foreign body in left ear Hearing loss Tympanosclerosis, right ear Left serous otitis media Acute left otitis media Dizziness Dysuria PAF (paroxysmal atrial fibrillation) CKD stage 4 due to type 2 diabetes mellitus Typical angina Coronary artery disease Stroke Surgical History History of colonoscopy Presence of stent in coronary artery Hx of CABG Family History Other No significant family history Social History Smoking Status: Former smoker tobacco type: cigarettes packs per day: 1 alcohol intake: never substance use type: denies use current occupational status: employed Travel in the last 8 weeks: Inside the [place] household members: spouse housing: house current occupation: [employer] current occupational exposures/hazards: No caffeine: Yes Have you lived/traveled outside [place] in past 30 days?: No Contact w/someone who lives/traveled outside [place] past 30 days?: No Exposure to someone with infectious disease in past 14 days?: No Do you have a fever (greater than 100.4 F or 38 C)?: No Have you tested positive for COVID-19: No Exposed to someone with COVID-19 in past 14 days?: No Do you have a sore throat?: No Do you have a cough?: No Do you have any weakness?: No Do you have any diarrhea?: No Are you experiencing any unusual bleeding?: No Do you have any muscle aches/pain?: No Do you have any abdominal pain?: No Are you experiencing loss of taste or smell?: No Other Medical History Have you received the Flu Vaccine for this season: No Have you received the Pneumonia Vaccine: No <QUITA Lerner - Last Filed: 01/24/25 12:23> ROS Obtained: Yes All systems reviewed & no additional complaints except as documented Physical Exam <QUITA Lerner - Last Filed: 01/24/25 12:23> General General appearance: alert and in no apparent distress Head Head exam: atraumatic and normocephalic Eye Eye exam: Present PERRL and EOMI ENT ENT exam: Present mucous membranes moist Neck Neck exam: Present normal inspection Chest Chest inspection: Present normal inspection and symmetric chest wall rise Respiratory Respiratory exam: Present normal lung sounds bilaterally; Absent respiratory distress Cardiovascular Cardiovascular exam: Present tachycardia and irregular rhythm Abdominal Exam Abdominal exam: Present soft; Absent tenderness, guarding, rebound or rigidity Extremities Exam Extremities exam: Present normal inspection Neurological Exam Neurological exam: Present alert and oriented X3 Psychiatric Psychiatric exam: Present normal affect Skin Skin exam: Present warm, dry and other (1-2+ bilateral pitting edema, lower extremities.) Medical Decision Making <QUITA Lerner - Last Filed: 01/24/25 12:23> Medical Records Medical records reviewed: Yes I reviewed the patient's medical records. Screening: Per USPSTF and CDC recommendations, given the prevalence of disease in our region, it is our hospital?s policy to screen for HIV and viral Hepatitis for all patients aged 18 and over and those with ongoing risk factors. Roderick Inquiry Roderick was queried for this patient: No Vital Signs: 01/24/25 10:25 01/24/25 10:27 01/24/25 10:30 Temperature Temperature Source Pulse Rate 127 H 131 H 129 H Pulse Rate [Left Radial] Respiratory Rate 15 17 20 Blood Pressure 155/108 H 158/109 H 153/104 H Blood Pressure [Right Arm] Blood Pressure Mean Blood Pressure Mean [Right Arm] 02 Sat by Pulse Oximetry 99 99 99 Oxygen Delivery Method Room Air Room Air Room Air 01/24/25 10:33 01/24/25 11:00 01/24/25 11:30 Temperature 97.9 F Temperature Source Oral Pulse Rate 129 H 125 H Pulse Rate [Left Radial] 130 H Respiratory Rate 26 H 20 21 Blood Pressure 149/104 H 135/97 H Blood Pressure [Right Arm] 155/108 H Blood Pressure Mean Blood Pressure Mean [Right Arm] 123 02 Sat by Pulse Oximetry 99 98 98 Oxygen Delivery Method Room Air Room Air Room Air 01/24/25 12:01 01/24/25 12:30 01/24/25 13:00 Temperature Temperature Source Pulse Rate 122 H 73 Pulse Rate [Left Radial] Respiratory Rate 21 22 25 H Blood Pressure 160/58 H 130/99 H 134/95 H Blood Pressure [Right Arm] Blood Pressure Mean Blood Pressure Mean [Right Arm] 02 Sat by Pulse Oximetry 99 90 L Oxygen Delivery Method Room Air Room Air 01/24/25 13:30 01/24/25 14:00 Temperature Temperature Source Pulse Rate Pulse Rate [Left Radial] Respiratory Rate 21 23 Blood Pressure 130/96 H 128/96 H Blood Pressure [Right Arm] Blood Pressure Mean 103 Blood Pressure Mean [Right Arm] 02 Sat by Pulse Oximetry Oxygen Delivery Method Lab Data Lab Results 01/24/25 10:25: WBC 9.4, RBC 4.77, Hgb 13.6 L, Hct 42.3, MCV 88.7, MCH 28.5, MCHC 32.2, RDW 16.1, Plt Count 308, MPV 10.2, Neut % (Auto) 72.6, Lymph % (Auto) 15.5, [place] % (Auto) 9.6 H, Eos % (Auto) 1.3, Baso % (Auto) 0.6, Neut # (Auto) 6.8, Lymph # (Auto) 1.5, [place] # (Auto) 0.9, Eos # (Auto) 0.1, Baso # (Auto) 0.1, D-Dimer 1.14 H, Sodium 130 L, Potassium 4.7, Chloride 99, Carbon Dioxide 16 L, A nion Gap 19.7 H, BUN 43 H, Creatinine 2.40 H, Estimated Creat Clear 31, E stimated GFR 27 L, Est GFR ( Amer) 32 L, Glucose 303 H, Calcium 9.5, Magnesium 2.2, Total Bilirubin 1.2, AST 80 H, ALT 111 H, Alkaline Phosphatase 270 H, Troponin I 0.06 H, NT-Pro-B Natriuret Pep 95637 H, Total Protein 8.1, Albumin 4.2, Globulin 3.9 H, Albumin/Globulin Ratio 1.1, TSH 11.80 H, Free T4 1.11 01/24/25 13:29: Troponin I 0.05 H 01/24/25 10:25 01/24/25 10:25 Orders (Tests/Meds): ED MEDICATIONS Generic Name Dose Route Start Last Admin Trade Name Freq PRN Reason Stop Dose Admin Amiodarone HCl 900 mg/ 518 mls @ 34.533 mls/hr 01/24/25 10:45 01/24/25 12:09 Dextrose IV 01/25/25 01:45 1 mg/min .Q15H1M PJ 34.53 mls/hr Administration Protocol 1 MG/MIN Discontinued Medications Generic Name Dose Route Start Last Admin Trade Name Freq PRN Reason Stop Dose Admin Amiodarone HCl 150 mg/ 103 mls @ 618 mls/hr 01/24/25 10:37 01/24/25 10:56 Dextrose IV 01/24/25 10:46 618 mls/hr ONCE ONE Administration Protocol ORDERS Category Date Time Status Cardiology Consult [Consult to Cardiology] [CONS] Cons 01/24/25 11:59 Active Routine POCUS Point of Care (ER Only) Stat Exams 01/24/25 10:50 Completed XR chest portable Stat Exams 01/24/25 10:29 Completed Complete Blood Count Auto Diff Stat Lab 01/24/25 10:25 Completed Comprehensive Metabolic Panel Stat Lab 01/24/25 10:25 Completed D-Dimer Stat Lab 01/24/25 10:25 Completed Free T4 (Free Thyroxine) Stat Lab 01/24/25 10:25 Completed Magnesium Stat Lab 01/24/25 10:25 Completed NT Pro Brain Natriuretic Pep. Stat Lab 01/24/25 10:25 Completed TSH [Thyroid Stimulating Hormone] Stat Lab 01/24/25 10:25 Completed Troponin I Q3H Lab 01/24/25 13:29 Completed Troponin I Q3H Lab 01/24/25 16:30 Ordered Troponin I Stat Lab 01/24/25 10:25 Completed Medical Decision Narrative: 74-year-old male presents the emergency department with shortness of air, started this morning, differential diagnose include but not limited to, cardiac arrhythmia, electrolyte disturbance, PE, ACS, exacerbation, pulmonary edema, pleural effusion, pneumothorax, pneumonia, acute bronchitis among others. I discussed patient case with attending physician Will obtain basic laboratory studies D-dimer troponin proBNP magnesium level TSH with reflex T4, EKG and chest x-ray. CBC unremarkable, no leukocytosis I reviewed and independently interpreted the patient's chest x-ray, no pneumothorax, there is some pulmonary edema,/increased vascularity in the interstitial space, with some widened mediastinum, but cardiac silhouette maintains similar appearance to previous chest x-ray. Because of this we will obtain bedside POCUS ultrasound. Patient's D-dimer is elevated at 1.14, utilizing years criteria, PE is not ruled out, however we have alternative cause at this time due to pulmonary edema and worsening CHF exacerbation, because of the patient's kidney function and GFR being under 30 at 27, will not obtain CTA at this time due to poor kidney function contrast-induced nephropathy. However, this is still in the differential. CMP is notable for mild hyponatremia 130, anion gap is elevated at 19.7, BUN is elevated 43, creatinine is elevated to 2.4 this appears to be somewhat similar to the patient's baseline CKD, AST is minimally elevated 80, ALT is elevated at 111, which is outside patient's baseline, troponin is minimally elevated at 0.06. Attending physician discussed this patient's case via the phone with hospitalist physician at 11:45 PM, , he is agreement with current admission plan/treatment plan for CHF exacerbation and atrial flutter. I discussed need for admission with the patient family bedside patient family agree with current admission plan/treatment plan. I reviewed the patient's chest x-ray along the corresponding radiological report, status post median sternotomy, stable cardiomegaly, no focal infiltrate pleural effusion or pneumothorax. proBNP is elevated at 15,400. TSH is elevated at 11.8. <Walker Damon MD - Last Filed: 01/24/25 15:08> Roderick Inquiry Pt receiving controlled substance: No Vital Signs: 01/24/25 10:25 01/24/25 10:27 01/24/25 10:30 Temperature Temperature Source Pulse Rate 127 H 131 H 129 H Pulse Rate [Left Radial] Respiratory Rate 15 17 20 Blood Pressure 155/108 H 158/109 H 153/104 H Blood Pressure [Right Arm] Blood Pressure Mean Blood Pressure Mean [Right Arm] 02 Sat by Pulse Oximetry 99 99 99 Oxygen Delivery Method Room Air Room Air Room Air 01/24/25 10:33 01/24/25 11:00 01/24/25 11:30 Temperature 97.9 F Temperature Source Oral Pulse Rate 129 H 125 H Pulse Rate [Left Radial] 130 H Respiratory Rate 26 H 20 21 Blood Pressure 149/104 H 135/97 H Blood Pressure [Right Arm] 155/108 H Blood Pressure Mean Blood Pressure Mean [Right Arm] 123 02 Sat by Pulse Oximetry 99 98 98 Oxygen Delivery Method Room Air Room Air Room Air 01/24/25 12:01 01/24/25 12:30 01/24/25 13:00 Temperature Temperature Source Pulse Rate 122 H 73 Pulse Rate [Left Radial] Respiratory Rate 21 22 25 H Blood Pressure 160/58 H 130/99 H 134/95 H Blood Pressure [Right Arm] Blood Pressure Mean Blood Pressure Mean [Right Arm] 02 Sat by Pulse Oximetry 99 90 L Oxygen Delivery Method Room Air Room Air 01/24/25 13:30 01/24/25 14:00 Temperature Temperature Source Pulse Rate Pulse Rate [Left Radial] Respiratory Rate 21 23 Blood Pressure 130/96 H 128/96 H Blood Pressure [Right Arm] Blood Pressure Mean 103 Blood Pressure Mean [Right Arm] 02 Sat by Pulse Oximetry Oxygen Delivery Method Lab Data Lab Results 01/24/25 10:25: WBC 9.4, RBC 4.77, Hgb 13.6 L, Hct 42.3, MCV 88.7, MCH 28.5, MCHC 32.2, RDW 16.1, Plt Count 308, MPV 10.2, Neut % (Auto) 72.6, Lymph % (Auto) 15.5, [place] % (Auto) 9.6 H, Eos % (Auto) 1.3, Baso % (Auto) 0.6, Neut # (Auto) 6.8, Lymph # (Auto) 1.5, [place] # (Auto) 0.9, Eos # (Auto) 0.1, Baso # (Auto) 0.1, D-Dimer 1.14 H, Sodium 130 L, Potassium 4.7, Chloride 99, Carbon Dioxide 16 L, A nion Gap 19.7 H, BUN 43 H, Creatinine 2.40 H, Estimated Creat Clear 31, E stimated GFR 27 L, Est GFR ( Amer) 32 L, Glucose 303 H, Calcium 9.5, Magnesium 2.2, Total Bilirubin 1.2, AST 80 H, ALT 111 H, Alkaline Phosphatase 270 H, Troponin I 0.06 H, NT-Pro-B Natriuret Pep 90296 H, Total Protein 8.1, Albumin 4.2, Globulin 3.9 H, Albumin/Globulin Ratio 1.1, TSH 11.80 H, Free T4 1.11 01/24/25 13:29: Troponin I 0.05 H Orders (Tests/Meds): ED MEDICATIONS Generic Name Dose Route Start Last Admin Trade Name Freq PRN Reason Stop Dose Admin Amiodarone HCl 900 mg/ 518 mls @ 34.533 mls/hr 01/24/25 10:45 01/24/25 12:09 Dextrose IV 01/25/25 01:45 1 mg/min .Q15H1M PJ 34.53 mls/hr Administration Protocol 1 MG/MIN Discontinued Medications Generic Name Dose Route Start Last Admin Trade Name Freq PRN Reason Stop Dose Admin Amiodarone HCl 150 mg/ 103 mls @ 618 mls/hr 01/24/25 10:37 01/24/25 10:56 Dextrose IV 01/24/25 10:46 618 mls/hr ONCE ONE Administration Protocol ORDERS Category Date Time Status Cardiology Consult [Consult to Cardiology] [CONS] Cons 01/24/25 11:59 Active Routine POCUS Point of Care (ER Only) Stat Exams 01/24/25 10:50 Completed XR chest portable Stat Exams 01/24/25 10:29 Completed Complete Blood Count Auto Diff Stat Lab 01/24/25 10:25 Completed Comprehensive Metabolic Panel Stat Lab 01/24/25 10:25 Completed D-Dimer Stat Lab 01/24/25 10:25 Completed Free T4 (Free Thyroxine) Stat Lab 01/24/25 10:25 Completed Magnesium Stat Lab 01/24/25 10:25 Completed NT Pro Brain Natriuretic Pep. Stat Lab 01/24/25 10:25 Completed TSH [Thyroid Stimulating Hormone] Stat Lab 01/24/25 10:25 Completed Troponin I Q3H Lab 01/24/25 13:29 Completed Troponin I Q3H Lab 01/24/25 16:30 Ordered Troponin I Stat Lab 01/24/25 10:25 Completed Procedures <Walker Damon MD - Last Filed: 01/24/25 15:08> Miscellaneous Procedure Procedure Performed: Limited cardiac ultrasound Indication: Dyspnea Identified structures: The heart was visualized in the parasternal long axis, parastenal short axis, apical four chamber and subxyphiod views. The IVC was visualized in the short axis and long axis at its entry into the right atrium. Findings: Severely depressed LVEF no obvious focal regional wall motion abnormalities no pericardial effusion noted IVC unable to be visualized Impression: Severely depressed LVEF no pericardial effusion Images were saved to permanent archive The study was technically adequate CPT: 57884-57 This study was performed by nj, and I personally interpreted all images/videos. Based on my clinical judgement, these images were adequate and did not necessitate further imaging. Limited lung ultrasound A focused ultrasound exam of the pleural spaces was performed to evaluate for pneumothorax, pulmonary edema, pleural effusion and/or consolidation. The ultrasound was performed with the following indications, as noted in the H&P: Dyspnea Identified structures: Right and left thoracic cavities were examined. Findings: Lung sliding present throughout there are B-lines throughout all lung canela no obvious pleural effusions noted Impression: B-lines throughout all lung canela consistent with pulmonary edema Images were saved to permanent archive The study was technically adequate CPT 80352-39 This study was performed by nj, and I personally interpreted all images/videos. Based on my clinical judgement, these images were adequate and did not necessitate further imaging. Critical Care <Walker Damon MD - Last Filed: 01/24/25 15:08> Critical Care Time Critical Care Time: Yes Attestation: On 01/24/25, the high probability of a clinically significant, sudden or life threatening deterioration of the following system(s) required my full and direct attention, intervention and personal management. The time I documented below is in addition to time spent performing reported procedures but includes the following listed in this critical care notation. Total Time Total Critical Care Time: 35
[2025-01-24 10:36] LABS: Basophils # 0.1 K/mm3 (0-0.2); Basophils % 0.6 % (0.1-2.0); Eosinophils # 0.1 Kmm3 (0.0-0.4); Eosinophils % 1.3 % (0.1-12.0); Hematocrit 42.3 % (42.0-52.0); Hemoglobin 13.6 g/dL (14.1-18.0); Lymphocytes # 1.5 K/mm3 (0.7-4.5); Lymphocytes % 15.5 % (10-50); Mean Corpuscular HGB Conc 32.2 g/dL (31.8-35.4); Mean Corpuscular Hemoglobin 28.5 pg (27.0-31.2); Mean Corpuscular Volume 88.7 fl (80-94); Mean Platelet Volume 10.2 fl (7.4-10.4); Monocytes # 0.9 K/mm3 (0.1-1.0); Monocytes % 9.6 % (1.7-9.3); Neutrophils # 6.8 K/mm3 (1.8-7.8); Neutrophils % 72.6 % (37.0-80.0); Nucleated Red Blood Cells # 0 10^3/uL; Nucleated Red Blood Cells % 0 %; Platelet Count 308 K/mm3 (142-424); Red Blood Count 4.77 M/mm3 (4.60-6.20); Red Cell Distribution Width 16.1 % (11.5-17.5); Red Cell Distribution Width-SD 52.8 fL; White Blood Count 9.4 K/mm3 (4.8-10.8)
--- NOTE | 2025-01-24 10:36 | PC.NURSE ---
xray at bedside
[2025-01-24 10:50] LABS: Alanine Aminotransferase 111 U/L (12-78); Albumin Level 4.2 g/dl (3.5-5.0); Albumin/Globulin Ratio 1.1 (1.1-1.8); Alkaline Phosphatase 270 U/L (38-126); Anion Gap 19.7 mEq/L (5-15); Aspartate Amino Transferase 80 U/L (17-59); Bilirubin,Total 1.2 mg/dl (0.2-1.3); Blood Urea Nitrogen 43 mg/dl (9-20); Calcium 9.5 mg/dl (8.4-10.2); Carbon Dioxide 16 mmol/L (22.0-30.0); Chloride 99 mmol/L (98-107); Creatinine Clearance Estimated 31 mL/min (50-200); Estimated Glomerular Filt Rate 27 ml/min (>60); GFR (African American) 32 ML/MIN (>60); Globulin 3.9 g/dL (1.3-3.2); Glucose 303 mg/dl (74-100); Potassium 4.7 mmoL/L (3.5-5.1); Sodium 130 mmol/L (136-145); Total Protein,Serum 8.1 g/dl (6.3-8.2)
[2025-01-24 10:56] LABS: D-Dimer 1.14 ug/mL (0.0-0.5)
[2025-01-24] MEDS: AMIODARONE HCL 150 MG in DEXTROSE 5 % IN WATER 100 ML 618 MG IV (10:56)
[2025-01-24 11:02] LABS: Troponin I 0.06 ng/ml (0.00-0.034)
[2025-01-24 11:41] LABS: Magnesium 2.2 mg/dl (1.6-2.3)
[2025-01-24 11:52] LABS: NT Pro Brain Natriuretic Pep. 15400 pg/mL (0-125)
--- NOTE | 2025-01-24 11:52 | PC.NURSE ---
called house for bed request at this time for patient admission. no beds available. pt will remain in the ED until a bed becomes available
--- NOTE | 2025-01-24 11:59 | P.HP_ITS ---
History of Present Illness *Admission Date: 01/24/25 *Reason for visit:: Shortness of breath *History of present illness: Zcakary Carrasco is a 74-year-old male with a medical history significant for A-fib, HFrEF, CAD/CABG, NSTEMI, CKD stage IV, hypertension, type 2 diabetes, BPH, GERD who presents with progressive shortness of breath, leg swelling. Patient was recently admitted to our facility last month for similar symptoms. He states he has been adherent to his medications. In the ED, patient's heart rate 120s/130s with A-fib. Patient was initiated on amiodarone drip. Workup also consistent with HFrEF exacerbation, BNP 15,400 with gross signs of volume overload. Case discussed with ED provider and decision was made to admit patient for A-fib RVR, HFrEF exacerbation. [facility] Disclaimer: The information contained in this section may have been updated after the patient was seen, as this information can be updated by other users. Medical History Calf cramp Elevated troponin New onset of congestive heart failure CHF (congestive heart failure) Sinus tachycardia Dyspnea B12 deficiency Painful urination Screening for prostate cancer Screening for HIV (human immunodeficiency virus) Encounter for HCV screening test for low risk patient Colon cancer screening Right flank pain Proteinuria Foreign body in left ear Hearing loss LOM (left otitis media) Dermatitis Tympanosclerosis, right ear Left serous otitis media Acute left otitis media Dizziness Otitis media Left elbow fracture Decreased mobility Right hip pain Acute cystitis without hematuria Dysuria Injury of left elbow Injury due to fall Left elbow pain Laceration of lip Inguinal hernia bilateral, non-recurrent Abnormal cardiovascular stress test PAF (paroxysmal atrial fibrillation) CKD stage 4 due to type 2 diabetes mellitus Typical angina Coronary artery disease Stroke Fall Head injury COVID-19 Surgical History (Updated 01/24/25 @ 16:35 by Melissa Vu RN) History of tonsillectomy History of appendectomy Hx of cholecystectomy History of colonoscopy Presence of stent in coronary artery Hx of CABG Family History Other No significant family history Social History (Updated 01/24/25 @ 16:36 by Melissa Vu RN) Smoking Status: Former smoker tobacco type: cigarettes packs per day: 1 alcohol intake: never substance use type: denies use current occupational status: employed Travel in the last 8 weeks: Inside the [place] household members: spouse housing: house current occupation: [employer] current occupational exposures/hazards: No caffeine: Yes Have you lived/traveled outside [place] in past 30 days?: No Contact w/someone who lives/traveled outside US past 30 days?: No Exposure to someone with infectious disease in past 14 days?: No Do you have a fever (greater than 100.4 F or 38 C)?: No Have you tested positive for COVID-19: No Exposed to someone with COVID-19 in past 14 days?: No Do you have a sore throat?: No Do you have a cough?: No Do you have any weakness?: No Are you experiencing any nausea/vomitting?: No Do you have any diarrhea?: No Are you experiencing any unusual bleeding?: No Do you have any muscle aches/pain?: No Do you have any abdominal pain?: No Are you experiencing loss of taste or smell?: No Other Medical History Have you received the Flu Vaccine for this season: No Have you received the Pneumonia Vaccine: No Meds Home Medications and Allergies Home Medications ?Medication ?Instructions ?Recorded ?Confirmed ?Type aspirin 81 mg tablet,delayed 81 mg PO DAILY #90 tabs 12/08/24 01/24/25 Rx release (Adult Low Dose Aspirin) cholecalciferol (vitamin D3) 1,250 1,250 mcg PO WEEKLY 90 days #13 12/08/24 01/24/25 Rx mcg (50,000 unit) oral wafer wafers ferrous sulfate 325 mg (65 mg 325 mg PO DAILY #90 tabs 12/08/24 01/24/25 Rx iron) tablet insulin lispro 100 unit/mL 1 sliding scale dose SQ 12/08/24 01/24/25 Rx subcutaneous pen USEASDIRECTD #15 mL empagliflozin 10 mg tablet 10 mg PO DAILY #90 tabs 12/14/24 01/24/25 Rx (Jardiance) levothyroxine 88 mcg tablet 88 mcg PO DAILY 12/22/24 01/24/25 History melatonin 3 mg capsule 3 mg PO HS PRN Sleep 12/22/24 01/24/25 History atorvastatin 40 mg tablet 40 mg PO HS 12/23/24 01/24/25 History clopidogrel 75 mg tablet 75 mg PO DAILY 12/23/24 01/24/25 History omeprazole 40 mg capsule,delayed 40 mg PO DAILY 12/23/24 01/24/25 History release hydralazine 25 mg tablet 25 mg PO TID 30 days #90 tabs 12/28/24 01/24/25 Rx bumetanide 0.5 mg tablet 0.5 mg PO DAILY 01/24/25 01/24/25 History isosorbide dinitrate 20 mg tablet 20 mg PO TID 01/24/25 01/24/25 History metoprolol succinate 25 mg 25 mg PO DAILY 01/24/25 01/24/25 History tablet,extended release 24 hr New Prescriptions to Start Prescriptions: Allergies Allergy/AdvReac Type Severity Reaction Status Date / Time amoxicillin Allergy Rash Verified 12/31/24 11:39 Penicillins Allergy Rash Verified 12/31/24 11:39 Exam Data for Last 24 hours Vital signs and Labs for Last 24 Hours: Temp Pulse Resp BP Pulse Ox O2 Del Method 97.9 F 125 H 21 135/97 H 98 Room Air 01/24/25 10:33 01/24/25 11:30 01/24/25 11:30 01/24/25 11:30 01/24/25 11:30 01/24/25 11:30 Laboratory Results - last 24 hr 01/24/25 10:25: WBC 9.4, RBC 4.77, Hgb 13.6 L, Hct 42.3, MCV 88.7, MCH 28.5, MCHC 32.2, RDW 16.1, Plt Count 308, MPV 10.2, Neut % (Auto) 72.6, Lymph % (Auto) 15.5, Randall % (Auto) 9.6 H, Eos % (Auto) 1.3, Baso % (Auto) 0.6, Neut # (Auto) 6.8, Lymph # (Auto) 1.5, Randall # (Auto) 0.9, Eos # (Auto) 0.1, Baso # (Auto) 0.1, D-Dimer 1.14 H, Sodium 130 L, Potassium 4.7, Chloride 99, Carbon Dioxide 16 L, Anion Gap 19.7 H, BUN 43 H, Creatinine 2.40 H, Estimated Creat Clear 31, Estimated GFR 27 L, Est GFR ( Amer) 32 L, Glucose 303 H, Calcium 9.5, Total Bilirubin 1.2, AST 80 H, ALT 111 H, Alkaline Phosphatase 270 H, Troponin I 0.06 H, Total Protein 8.1, Albumin 4.2, Globulin 3.9 H, Albumin/Globulin Ratio 1.1 I & O for Last 24 hours: Intake & Output 01/21/25 01/22/25 01/23/25 01/24/25 23:59 23:59 23:59 23:59 Weight 79.379 kg Constitutional Constitutional: no acute distress *Routine HEENT Exam Head: Present normocephalic Eye: Present EOMI and PERRL ENT: Present mucous membranes moist *Routine Neck Exam Neck: Present supple; Absent lymphadenopathy *Routine Respiratory Exam Respiratory: Present CTA bilaterally *Routine Cardiovascular Exam Cardiovascular: Present RRR *Routine Abdominal Exam Abdominal: Present soft, normoactive bowel sounds and tenderness *Routine Rectal Exam Rectal:: deferred *Routine Genitalia Exam Genitalia:: deferred *Routine Extremities Exam Extremities: Present edema; Absent cyanosis or clubbing *Routine Skin Exam Skin: Present warm; Absent rash *Routine Neurological Exam Neurological: Present alert and oriented X3 Assessment and Plan *Assessment and plan (1) Acute on chronic HFrEF (heart failure with reduced ejection fraction): Status: Acute Category: Medical Code(s): I50.23 - Acute on chronic systolic (congestive) heart failure Plan Zackary Carrasco is a 74-year-old male with a medical history significant for A-fib, HFrEF, CAD/CABG, NSTEMI, CKD stage IV, hypertension, type 2 diabetes, BPH, GERD who presents with progressive shortness of breath, leg swelling. Patient was recently admitted to our facility last month for similar symptoms. He states he has been adherent to his medications. In the ED, patient's heart rate 120s/130s with A-fib. Patient was initiated on amiodarone drip. Workup also consistent with HFrEF exacerbation, BNP 15,400 with gross signs of volume overload. Case discussed with ED provider and decision was made to admit patient for A-fib RVR, HFrEF exacerbation. #Acute on chronic HFrEF #A-fib RVR ? Progressive shortness of breath, volume overload. BNP 15,400. Patient states he has been adherent to his medications, though he lives alone and family questions this. ? Given patient has chronic A-fib, transitioned off amiodarone drip per cardiology recommendations. Given IV Lopressor 5 mg but patient went into cardiogenic shock that was reversed by glucagon 2 mg. HR currently 108. ? Started IV Bumex 1 mg twice daily, spironolactone 25 mg. ? Continue home metoprolol succinate 25 mg, Jardiance 10 mg. ? Therapeutic Lovenox. ? Cardiology considering AICD. Patient noncompliant with LifeVest. #CAD s/p CABG 2017, LUKE 2021 #CKD stage IV #Hypertension ? ECHO revealed improved LVEF to 30% with medical management. Cardiology previously recommended continuing and optimizing medical management prior to considering AICD. ? Clinically improved with IV Bumex diuresis. Renal function stable with CKD stage IV creatinine 2.7, GFR 23. ? Continue aspirin 81 mg, clopidogrel 75 mg, atorvastatin 80 mg. 9 #Hypothyroidism ? TSH subtherapeutic 11.8. Questionable adherence to medication. ? Continue home levothyroxine 88 mcg. #Type 2 diabetes ? Lantus insulin to 30 units nightly. Continue Jardiance 10 mg. #BPH ? Continue home finasteride 5 mg. #GERD ? Continue home PPI. DNR/DNI Therapeutic Lovenox
[2025-01-24] MEDS: AMIODARONE HCL 900 MG in DEXTROSE 5 % IN WATER 500 ML 34.53 MG IV (12:09)
--- NOTE | 2025-01-24 13:31 | PC.NURSE ---
second trop sent to lab
[2025-01-24 14:15] LABS: Troponin I 0.05 ng/ml (0.00-0.034)
[2025-01-24 14:19] LABS: Free T4 (Free Thyroxine) 1.11 ng/dl (0.78-2.19)
[2025-01-24] MEDS: ONDANSETRON 4MG/2ML VIAL 4 MG IV ×2 (15:25→18:23)
--- NOTE | 2025-01-24 15:34 | P.CONCA_ITS ---
History of Present Illness History of Present Illness Consult date: 01/24/25 Requesting physician: Joel Corona Consult reason: congestive heart failure Chief complaint: CHF, A. fib with RVR History of present illness: 74-year-old white male presented to the emergency department by EMS for shortness of breath for the last 2 days with increasing orthopnea and lower extremity edema. He maintains compliance with his medications and denies any significant increase in salt intake recently. Patient is known to have a ischemic cardiomyopathy with an ejection fraction in the 20-30% range over the last several months. He did undergo coronary stenting in September 2024 in [facility]. He has a LifeVest due to his cardiomyopathy but is not currently wearing it. He is now 3 months out from his coronary stenting and we will make a decision on defibrillator implantation this visit. BNP this visit is 15,400 the chest x-ray negative for infiltrates, effusions or pneumothorax. Troponins mildly elevated at 0.06 and 0.05 Echo from December 2024 shows EF 30%. Patient has chronic atrial fibrillation with a tachycardic rate at this time. He has been started on amiodarone for rate control in the ER. [facility] Disclaimer: The information contained in this section may have been updated after the patient was seen, as this information can be updated by other users. Medical History Foreign body in left ear Hearing loss Tympanosclerosis, right ear Left serous otitis media Acute left otitis media Dizziness Dysuria PAF (paroxysmal atrial fibrillation) CKD stage 4 due to type 2 diabetes mellitus Typical angina Coronary artery disease Stroke Surgical History History of colonoscopy Presence of stent in coronary artery Hx of CABG Family History Other No significant family history Social History Smoking Status: Former smoker tobacco type: cigarettes packs per day: 1 alcohol intake: never substance use type: denies use current occupational status: employed Travel in the last 8 weeks: [place] the [place] household members: spouse housing: house current occupation: [employer] current occupational exposures/hazards: No caffeine: Yes Have you lived/traveled outside [place] in past 30 days?: No Contact w/someone who lives/traveled outside [place] past 30 days?: No Exposure to someone with infectious disease in past 14 days?: No Do you have a fever (greater than 100.4 F or 38 C)?: No Have you tested positive for COVID-19: No Exposed to someone with COVID-19 in past 14 days?: No Do you have a sore throat?: No Do you have a cough?: No Do you have any weakness?: No Do you have any diarrhea?: No Are you experiencing any unusual bleeding?: No Do you have any muscle aches/pain?: No Do you have any abdominal pain?: No Are you experiencing loss of taste or smell?: No Review of Systems Review of Systems Review of systems:: pertinent systems reviewed and negative unless documented below *Cardiovascular Cardiovascular: Reports dyspnea, Reports leg edema, Reports orthopnea and Reports rapid heart rate *Respiratory Respiratory: Reports dyspnea Exam Data for Last 24 hours Vital signs and Labs for Last 24 Hours: Temp Pulse Resp BP Pulse Ox O2 Del Method 97.9 F 73 23 128/96 H 90 L Room Air 01/24/25 10:33 01/24/25 12:30 01/24/25 14:00 01/24/25 14:00 01/24/25 12:30 01/24/25 12:30 Laboratory Results - last 24 hr 01/24/25 10:25: WBC 9.4, RBC 4.77, Hgb 13.6 L, Hct 42.3, MCV 88.7, MCH 28.5, MCHC 32.2, RDW 16.1, Plt Count 308, MPV 10.2, Neut % (Auto) 72.6, Lymph % (Auto) 15.5, [place] % (Auto) 9.6 H, Eos % (Auto) 1.3, Baso % (Auto) 0.6, Neut # (Auto) 6.8, Lymph # (Auto) 1.5, [place] # (Auto) 0.9, Eos # (Auto) 0.1, Baso # (Auto) 0.1, D-Dimer 1.14 H, Sodium 130 L, Potassium 4.7, Chloride 99, Carbon Dioxide 16 L, Anion Gap 19.7 H, BUN 43 H, Creatinine 2.40 H, Estimated Creat Clear 31, Estimated GFR 27 L, Est GFR ( Amer) 32 L, Glucose 303 H, Calcium 9.5, Magnesium 2.2, Total Bilirubin 1.2, AST 80 H, ALT 111 H, Alkaline Phosphatase 270 H, Troponin I 0.06 H, NT-Pro-B Natriuret Pep 62571 H, Total Protein 8.1, Albumin 4.2, Globulin 3.9 H, Albumin/Globulin Ratio 1.1, TSH 11.80 H, Free T4 1.11 01/24/25 13:29: Troponin I 0.05 H I & O for Last 24 hours: Intake & Output 01/22/25 01/23/25 01/24/25 01/25/25 11:59 11:59 11:59 11:59 Weight 175 lb Constitutional Constitutional: mild distress *Routine Respiratory Exam Respiratory: Present decreased breath sounds and rales; Absent wheezes *Routine Cardiovascular Exam Cardiovascular: Present tachycardia and irregularly irregular *Routine Extremities Exam Extremities: Present edema *Routine Neurological Exam Neurological: Present alert, oriented X3 and CN II-XII intact Meds Home Medications and Allergies Home Medications ?Medication ?Instructions ?Recorded ?Confirmed ?Type aspirin 81 mg tablet,delayed 81 mg PO DAILY #90 tabs 12/08/24 01/24/25 Rx release (Adult Low Dose Aspirin) cholecalciferol (vitamin D3) 1,250 1,250 mcg PO WEEKLY 90 days #13 12/08/24 01/24/25 Rx mcg (50,000 unit) oral wafer wafers ferrous sulfate 325 mg (65 mg 325 mg PO DAILY #90 tabs 12/08/24 01/24/25 Rx iron) tablet insulin lispro 100 unit/mL 1 sliding scale dose SQ 12/08/24 01/24/25 Rx subcutaneous pen USEASDIRECTD #15 mL empagliflozin 10 mg tablet 10 mg PO DAILY #90 tabs 12/14/24 01/24/25 Rx (Jardiance) levothyroxine 88 mcg tablet 88 mcg PO DAILY 12/22/24 01/24/25 History melatonin 3 mg capsule 3 mg PO HS PRN Sleep 12/22/24 01/24/25 History atorvastatin 40 mg tablet 40 mg PO HS 12/23/24 01/24/25 History clopidogrel 75 mg tablet 75 mg PO DAILY 12/23/24 01/24/25 History omeprazole 40 mg capsule,delayed 40 mg PO DAILY 12/23/24 01/24/25 History release hydralazine 25 mg tablet 25 mg PO TID 30 days #90 tabs 12/28/24 01/24/25 Rx bumetanide 0.5 mg tablet 0.5 mg PO DAILY 01/24/25 01/24/25 History isosorbide dinitrate 20 mg tablet 20 mg PO TID 01/24/25 01/24/25 History metoprolol succinate 25 mg 25 mg PO DAILY 01/24/25 01/24/25 History tablet,extended release 24 hr New Prescriptions to Start Prescriptions: Allergies Allergy/AdvReac Type Severity Reaction Status Date / Time amoxicillin Allergy Rash Verified 12/31/24 11:39 Penicillins Allergy Rash Verified 12/31/24 11:39 Assessment and Plan *Assessment and plan (1) Acute on chronic HFrEF (heart failure with reduced ejection fraction): Status: Acute Category: Medical Code(s): I50.23 - Acute on chronic systolic (congestive) heart failure (2) Atrial fibrillation with RVR: Status: Acute Category: Medical Code(s): I48.91 - Unspecified atrial fibrillation (3) Ischemic cardiomyopathy: Status: Acute Category: Medical Code(s): I25.5 - Ischemic cardiomyopathy (4) DM type 2 (diabetes mellitus, type 2): Status: Acute Qualifiers: Diabetes mellitus terminal clerk insulin use: without terminal clerk use Diabetes mellitus complication status: with other specified complication Qualified Code(s): E11.69 - Type 2 diabetes mellitus with other specified complication Category: Medical Code(s): E11.9 - Type 2 diabetes mellitus without complications (5) Coronary artery disease: Status: Acute Qualifiers: Coronary Disease-Associated Artery/Lesion type: bypass graft [place] vs. transplanted heart: in[place]iat heart Associated angina: with other forms of angina Qualified Code(s): I25.708 - Atherosclerosis of coronary artery bypass graft(s), unspecified, with other forms of angina pectoris Category: Medical Code(s): I25.10 - Atherosclerotic heart disease of inupiat coronary artery without angina pectoris (6) Hx of CABG: Status: Acute Category: Surgical Code(s): Z95.1 - Presence of aortocoronary bypass graft (7) Presence of stent in coronary artery: Status: Acute Category: Surgical Code(s): Z95.5 - Presence of coronary angioplasty implant and graft Plan 1. Acute on chronic HFrEF -EF 30% -BNP 15,400 -Start IV diuretics with Bumex 1 mg twice daily -Continue GDMT with Jardiance 10 mg daily, diuretics and beta-cholo ther apy. No DEVI/ARB/Arni due to CKD -Repeat echo this admission when heart rate consistently less than 100 bpm -Consider AICD implantation this admission 2. Chronic atrial fibrillation now with RVR secondary to CHF -No anticoagulation due to history of recurrent hematuria -Prefer rate control versus rhythm control -Recommend discontinuing amiodarone and starting metoprolol tartrate 25 mg BID. Avoid IV diltiazem due to cardiomyopathy. 3. CAD with history of CABG -Most recent drug-eluting stent placed in 09/2024 -Continue aspirin and Plavix along with statin therapy -Left heart catheterization, 12/27/2024, coronary disease stable with patent BLOOD to LAD, SVG to bifurcating first diagonal and SVG to PDA. SVG to circumflex was occluded. Bilateral renals were normal. 4. CKD, stage IV -baseline creatinine around 2.2-2.4 5. Diabetes mellitus type 2 - Per hospitalist 6. Hypothyroidism -with TSH 11.8 7. Hypertension -Continue hydralazine and Isordil along with beta-cholo therapy IV diuresis with Bumex 1 mg twice daily Echocardiogram when heart rate less than 100 bpm consistently Consider AICD implantation this admission Stop amiodarone since we are not trying to convert to sinus rhythm Start oral metoprolol for rate control
--- NOTE | 2025-01-24 15:35 | PC.NURSE ---
report called to yosvany on second floor in ICU
--- OUTSIDE RECORDS SUMMARY | 2025-01-24 16:27 | XMS_ITS | Clinical Summary ---
Author Organization [facility] Address [address] [place] [address] Phone Care Team Providers Care Canvas Cutter Machine Name Role Phone Ghulam ARIAS, Kristofer Saenz Unavailable Unavail able BRII ENRIQUEZ Unavailable [phone] Reason for Visit and Chief Complaint The Chief Complaint is: Left elbow pain Problems Includes: Problems addressed during this encounter and other active Problems All Visits Onset Date Resolved Date Provider Condition S tatus Left Elbow Joint Pain 06/23/2023 Giuseppe Winkler PA-C Active Last Documented On 3 12:34PM ; [facility], [facility] Plan of Treatment Fall Risk Assessment: [...] - Last Documented On 07/21/2023 1:01PM ; [facility] his wound has resolved. Fracture still well [...] Last Documented On 07/21/2023 1:01PM ; [facility] Instructions to patient Intervention and counseling on cessation of tobacco use Last Documented On 3 2:39PM ; [facility], [facility] Lose weight Last Documented On 3 2:39PM ; [facility] Assessments Includes: Assessments from this encounter Findings - Overweight - Last Documented On 07/21/2023 1:01PM ; [facility] left distal humerus fracture - Last Documented On 07/21/2023 1:01PM ; [facility] Instructions Includes: Instructions from this encounter Instructions to patient Intervention and counseling on cessation of tobacco use Last Documented On 3 2:39PM ; [facility] Lose weight Last Documented On 3 2:39PM ; [facility] Medical Equipment - Implanted Devices Includes: Current Devices No Medical Equipment Recorded Medications Includes: Medications discussed during this encounter and other current Medications Current Medications (continue as prescribed) Ciprofloxacin HCl 500 MG Oral Tablet 06/18/2023 Prov ider: BRII ENRIQUEZ Diagnosis: Last Documented On 3 12:33PM By Ramona Pastor ; [facility] Insulin Glargine Solostar 10 0 UNIT/ML Subcutaneous Solution Pen-injector 06/17/2023 Provider: OSMAR ENRIQUEZ Diagnosis: Last Documented On 3 12:33PM By Ramona Pastor ; [facility] metFORMIN HCl ER 500 MG Oral Tablet Extended Release 24 Hour 06/17/2023 Provider: BRII ENRIQUEZ Diagnosis: Last Documented On 3 12:33PM By Ramona Pastor ; [facility] Metoprolol Succinate ER 50 M G Oral Tablet Extended Release 24 Hour 06/16/2023 Provider: BRII ENRIQUEZ Diagnosis: Last Documented On 3 12:33PM By Ramona Pastor ; [facility] Gemtesa 75 MG Oral Tablet 05/22/2023 Provider: DIO MORRIS MD Diagnosis: Last Documented On 3 12:33PM By Ramona Pastor ; [facility] Atorvastatin Calcium 40 MG Oral Tablet 05/20/2023 Pr ovider: Molly Loyd CHARGE AIDE Diagnosis: Last Documented On 3 12:33PM By Ramona Pastor ; [facility] Omeprazole 40 MG Oral Capsule Delayed Release 05/20/20 Provider: Molly Loyd NP Diagnosis: Last Documented On 3 12:33PM By Ramona Pastor ; [facility] Pantoprazole Sodium 40 MG Or al Tablet Delayed Release 05/20/2023 Provider: BRII ENRIQUEZ Diagnosis: Last Documented On 3 12:33PM By Ramona Pastor ; [facility], [facility] Tamsulosin HCl 0.4 MG Oral Capsule 05/20/2023 Provid er: Molly Loyd NP Diagnosis: Last Documented On 3 12:33PM By Ramona Pastor ; [facility], [facility] Xarelto 15 MG Oral Tablet 05/20/2023 Provider: MARY JO ENRIQUEZ Diagnosis: Last Documented On 3 12:33PM By Ramona Pastor ; [facility], [facility] levoFLOXacin 500 MG Oral Tablet 04/22/2023 Provider: DEION MORRIS MD Diagnosis: Last Documented On 3 12:33PM By Ramona Pastor ; [facility], [facility] Metoprolol Succinate ER 50 M G Oral Tablet Extended Release 24 Hour 03/24/2023 Provider: Diagnosis: Last Documented On 3 12:33PM By Ramona Pastor ; [facility], [facility] Tobramycin 0.3% Ophthalmic Solution 02/14/2023 Provi katelin: BRII ENRIQUEZ Diagnosis: Last Documented On 3 12:33PM By Ramona Pastor ; [facility], [facility] Medications Administered Includes: Administered Medications from this encounter No Administered Medications Recorded Vital Signs Includes: Vital Signs from this encounter Vital Name 07/14/2023 02:39P Height (in) 69 Weight (lb) 181 Body Mass Index 26.7 Body Surface Area 2 Note: HDV Last Documented: On 07/14/2023 2:39PM ; [facility], [facility] Results Includes: Results discussed during this [...] Last Documented On 3 2:39PM ; [facility], [facility] Caffeine use 06/23/2023 Last Documented On 3 2:39PM ; [facility], [facility] No recent change in diet 06/23/2023 Last Documented On 3 2:39PM ; [facility], [facility] Not exercising regularly 06/23/2023 Last Documented On 3 2:39PM ; [facility], [facility] Not using alcohol 06/23/2023 Last Documented On 3 2:39PM ; [facility], [facility] Not using drugs 06/23/2023 Last Documented On 3 2:39PM ; [facility], [facility] Yes, current smoker. 06/23/2023 Last Documented On 3 2:39PM ; [facility], [facility] Smoking Status Unknown Procedures and Surgical History Includes: Procedures from this encounter Procedures Code Diagnosis Performing Provider Service L ocation Service Date intervention and counseling on cessation of tobacco use 4000F Last Documented On 3 2:39PM ; [facility], [facility] use of tobacco assessment performed 1000F Last Documented On 3 2:39PM ; [facility], [facility] patient screened for future fall risk: documentation of any fall with injury in past year 1100F Last Documented On 3 2:39PM ; [facility], [facility] an X-ray was performed 04070 Last Documented On 3 2:39PM ; [facility], [facility] Surgical History Last Updated History of appendectomy 06/23/2023 Last Documented On 3 2:39PM ; [facility], [facility] History of heart surgery 06/23/2023 Last Documented On 3 2:39PM ; [facility], [facility] History of hernia repair 06/23/2023 Last Documented On 3 2:39PM ; [facility], [facility] Medical History Includes: Medical History addressed during this encounter Description Last Updated History of arthritis 06/23/2023 Last Documented On 3 2:39PM ; [facility], [facility] History of diabetes mellitus 06/23/2023 Last Documented On 3 2:39PM ; [facility], [facility] History of Fractures 06/23/2023 Last Documented On 3 2:39PM ; [facility], [facility] History of Heart Attack 06/23/2023 Last Documented On 3 2:39PM ; [facility], [facility] History of heart disease 06/23/2023 Last Documented On 3 2:39PM ; [facility], [facility] History of Heartburn / Acid Reflux 06/23 Last Documented On 3 2:39PM ; [facility], [facility] History of History of Gallbladder 2022 Last Documented On 3 2:39PM ; [facility], [facility] History of Hypertension 06/23/2023 Last Documented On 3 2:39PM ; [facility], [facility] History of Previous Fractures 06/23/2023 Last Documented On 3 2:39PM ; [facility], [facility] History of Thyroid Disease 06/23/2023 Last Documented On 3 2:39PM ; [facility], [facility] Family History Includes: Family History addressed during this encounter Description Last Updated Diabetes mellitus 06/23/2023 Last Documented On 3 2:39PM ; [facility], [facility] Family history of cancer 06/23/2023 Last Documented On 3 2:39PM ; [facility], [facility] Review of Systems Includes: Review of [...] Active Last Documented On 3 12:42PM ; [facility], [facility] Encounters Encounter Provider Location Date Check-In Time Check-Out Time Diagnosis Follow Up Jaz Winkler PA-C [facility] B 3 2:34PM 3:16PM Overweight Insurance Includes: Active Insurance Policies Plan Name Member ID Group # Subscriber Relationship Effect prasanna Dates 1 - [employer] ([place]) Medicare [id number] Deion Carrasco Self 08/07/2022 - Un known Clinical Notes Includes: Clinical Notes from this encounter * Progress note Date Encounter Last Documented by 07/14/2023 Follow Up Last documented on 07/21/2023; 1:01 PM, Jaz Winkler PA-C; [facility] Active Problems & Conditions - Left Elbow [...]
--- OUTSIDE RECORDS SUMMARY | 2025-01-24 16:28 | XMS_ITS | Clinical Summary ---
Author Organization [facility] Address [address] [place] [phone] Phone Care Team Providers Care Windows 7 Deployment Lead Name Role Phone Ghulam ARIAS, Kristofer Saenz Unavailable Unavail able BRII ENRIQUEZ Unavailable [phone] Reason for Visit and Chief Complaint The Chief Complaint is: Left elbow pain Problems Includes: Problems addressed during this encounter and other active Problems All Visits Onset Date Resolved Date Provider Condition S tatus Left Elbow Joint Pain 06/23/2023 Giuseppe Winkler PA-C Active Last Documented On 12:34PM ; [facility], [facility] Plan of Treatment Fall Risk Assessment: [...] - Last Documented On 08/04/2023 12:50PM ; [facility] Currently he is doing very well we discussed restrictions over the next 2 weeks. He may have some permanent loss of extension. 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 We will see him back as needed - Last Documented On 08/04/2023 12:50PM ; [facility] Instructions to patient Intervention and counseling on cessation of tobacco use Last Documented On 12:43PM ; [facility], [facility] Lose weight Last Documented On 12:43PM ; [facility], [facility] Assessments Includes: Assessments from this encounter Findings - Overweight - Last Documented On 08/04/2023 12:50PM ; [facility] Left distal humerus fracture - Last Documented On 08/04/2023 12:50PM ; [facility], [facility] Instructions Includes: Instructions from this encounter Instructions to patient Intervention and counseling on cessation of tobacco use Last Documented On 3 12:43PM ; [facility] Lose weight Last Documented On 3 12:43PM ; [facility], [facility] Medical Equipment - Implanted Devices Includes: Current Devices No Medical Equipment Recorded Medications Includes: Medications discussed during this encounter and other current Medications Current Medications (continue as prescribed) Ciprofloxacin HCl 500 MG Oral Tablet 06/18/2023 Prov ider: BRII ENRIQUEZ Diagnosis: Last Documented On 3 12:33PM By Ramona Pastor ; [facility] Insulin Glargine Solostar 10 0 UNIT/ML Subcutaneous Solution Pen-injector 06/17/2023 Provider: OSMAR ENRIQUEZ Diagnosis: Last Documented On 3 12:33PM By Ramona Pastor ; [facility] metFORMIN HCl ER 500 MG Oral Tablet Extended Release 24 Hour 06/17/2023 Provider: BRII ENRIQUEZ Diagnosis: Last Documented On 3 12:33PM By Ramona Pastor ; [facility] Metoprolol Succinate ER 50 M G Oral Tablet Extended Release 24 Hour 06/16/2023 Provider: BRII ENRIQUEZ Diagnosis: Last Documented On 3 12:33PM By Ramona Pastor ; [facility] Gemtesa 75 MG Oral Tablet 05/22/2023 Provider: DIO MORRIS MD Diagnosis: Last Documented On 3 12:33PM By Ramona Pastor ; [facility] Atorvastatin Calcium 40 MG Oral Tablet 05/20/2023 Pr ovider: Molly Loyd BUSINESS OBJECTS CONSULTANT Diagnosis: Last Documented On 3 12:33PM By Ramona Pastor ; [facility] Omeprazole 40 MG Oral Capsule Delayed Release 05/20/20 Provider: Molly Loyd NP Diagnosis: Last Documented On 3 12:33PM By Ramona Pastor ; [facility] Pantoprazole Sodium 40 MG Or al Tablet Delayed Release 05/20/2023 Provider: BRII ENRIQUEZ Diagnosis: Last Documented On 3 12:33PM By Ramona Pastor ; [facility], [facility] Tamsulosin HCl 0.4 MG Oral Capsule 05/20/2023 Provid er: Molly Loyd NP Diagnosis: Last Documented On 3 12:33PM By Ramona Pastor ; [facility] Xarelto 15 MG Oral Tablet 05/20/2023 Provider: MARY JO ENRIQUEZ Diagnosis: Last Documented On 3 12:33PM By Ramona Pastor ; [facility] levoFLOXacin 500 MG Oral Tablet 04/22/2023 Provider: DEION MORRIS MD Diagnosis: Last Documented On 3 12:33PM By Ramona Pastor ; [facility], [facility] Metoprolol Succinate ER 50 M G Oral Tablet Extended Release 24 Hour 03/24/2023 Provider: Diagnosis: Last Documented On 3 12:33PM By Ramona Pastor ; [facility], [facility] Tobramycin 0.3% Ophthalmic Solution 02/14/2023 Provi katelin: BRII ZOE Diagnosis: Last Documented On 3 12:33PM By Ramona Pastor ; [facility], [facility] Medications Administered Includes: Administered Medications from this encounter No Administered Medications Recorded Vital Signs Includes: Vital Signs from this encounter Vital Name 08/04/2023 12:43P Height (in) 69 Weight (lb) 181 Body Mass Index 26.7 Body Surface Area 2 Note: hdv Last Documented: On 08/04/2023 12:43P M ; [facility], [facility] Results Includes: Results discussed during this [...] 06/23/2023 Last Documented On 3 12:43PM ; [facility], [facility] Caffeine use 06/23/2023 Last Documented On 3 12:43PM ; [facility], [facility] No recent change in diet 06/23/2023 Last Documented On 3 12:43PM ; [facility], [facility] Not exercising regularly 06/23/2023 Last Documented On 3 12:43PM ; [facility] Not using alcohol 06/23/2023 Last Documented On 3 12:43PM ; [facility], [facility] Not using drugs 06/23/2023 Last Documented On 3 12:43PM ; [facility], [facility] Yes, current smoker. 06/23/2023 Last Documented On 3 12:43PM ; [facility], [facility] Smoking Status Unknown Procedures and Surgical History Includes: Procedures from this encounter Procedures Code Diagnosis Performing Provider Service L ocation Service Date intervention and counseling on cessation of tobacco use 4000F Last Documented On 3 12:43PM ; [facility], [facility] use of tobacco assessment performed 1000F Last Documented On 3 12:43PM ; [facility], [facility] patient screened for future fall risk: documentation of any fall with injury in past year 1100F Last Documented On 3 12:43PM ; [facility], [facility] an X-ray was performed 35620 Last Documented On 3 12:43PM ; [facility], [facility] Surgical History Last Updated History of appendectomy 06/23/2023 Last Documented On 3 12:43PM ; [facility] History of heart surgery 06/23/2023 Last Documented On 3 12:43PM ; [facility], [facility] History of hernia repair 06/23/2023 Last Documented On 3 12:43PM ; [facility], [facility] Medical History Includes: Medical History addressed during this encounter Description Last Updated History of arthritis 06/23/2023 Last Documented On 3 12:43PM ; [facility] History of diabetes mellitus 06/23/2023 Last Documented On 3 12:43PM ; [facility], [facility] History of Fractures 06/23/2023 Last Documented On 3 12:43PM ; [facility], [facility] History of Heart Attack 06/23/2023 Last Documented On 3 12:43PM ; [facility], [facility] History of heart disease 06/23/2023 Last Documented On 3 12:43PM ; [facility], [facility] History of Heartburn / Acid Reflux 06/23 Last Documented On 3 12:43PM ; [facility], [facility] History of History of Gallbladder 2022 Last Documented On 3 12:43PM ; [facility], [facility] History of Hypertension 06/23/2023 Last Documented On 3 12:43PM ; [facility], [facility] History of Previous Fractures 06/23/2023 Last Documented On 3 12:43PM ; [facility], [facility] History of Thyroid Disease 06/23/2023 Last Documented On 3 12:43PM ; [facility], [facility] Family History Includes: Family History addressed during this encounter Description Last Updated Diabetes mellitus 06/23/2023 Last Documented On 3 12:43PM ; [facility], [facility] Family history of cancer 06/23/2023 Last Documented On 3 12:43PM ; [facility], [facility] Review of Systems Includes: Review of [...] Active Last Documented On 3 12:42PM ; [facility], [facility] Encounters Encounter Provider Location Date Check-In Time Check-Out Time Diagnosis Follow Up Jaz Winkler PA-C [facility] B 3 12:30PM 12:52PM Overweight Insurance Includes: Active Insurance Policies Plan Name Member ID Group # Subscriber Relationship Effect prasanna Dates 1 - [facility] ([place] Medicare [id number] Deion Crarasco Self 08/07/2022 - Un known Clinical Notes Includes: Clinical Notes from this encounter * Progress note Date Encounter Last Documented by 08/04/2023 Follow Up Last documented on 08/04/2023; 12:50 PM, Jaz Winkler PA-C; [facility] Active Problems & Conditions - [...]
--- OUTSIDE RECORDS SUMMARY | 2025-01-24 16:28 | XMS_ITS | Clinical Summary ---
Author Organization [facility] Address [address] [place] [address] Phone Care Team Providers Care Mover Name Role Phone Ghulam ARIAS, Kristofer Saenz Unavailable Unavail able BRII ENRIQUEZ Unavailable [phone] Reason for Visit and Chief Complaint The Chief Complaint is: Left elbow pain Problems Includes: Problems addressed during this encounter and other active Problems All Visits Onset Date Resolved Date Provider Condition S tatus Left Elbow Joint Pain 06/23/2023 Giuseppe Winkler PA-C Active Last Documented On 3 12:34PM ; [facility] Plan of Treatment Fall Risk Assessment: This [...] Documented On 07/03/2023 9:58AM ; [facility] Radiographically he is still doing well. I think again we can transition him to casting at this point. He understands that this can leave him with stiffness due to the immobilization. We will see him 2 weeks cast off x-ray on arrival - Last Documented On 07/03/2023 9:58AM ; [facility] His wound is well-healing at this point so we will transition him to a long-arm cast. Cast care instructions were given - Last Documented On 07/03/2023 9:58AM ; [facility] Instructions to patient Intervention and counseling on cessation of tobacco use Last Documented On 3 1:51PM ; [facility] Lose weight Last Documented On 3 1:51PM ; [facility] Assessments Includes: Assessments from this encounter Findings - Overweight - Last Documented On 07/03/2023 9:58AM ; [facility] Left distal humerus fracture - Last Documented On 07/03/2023 9:58AM ; [facility] Instructions Includes: Instructions from this encounter Instructions to patient Intervention and counseling on cessation of tobacco use Last Documented On 3 1:51PM ; [facility] Lose weight Last Documented On 3 1:51PM ; [facility] Medical Equipment - Implanted Devices Includes: Current Devices No Medical Equipment Recorded Medications Includes: Medications discussed during this encounter and other current Medications Current Medications (continue as prescribed) Ciprofloxacin HCl 500 MG Oral Tablet 06/18/2023 Prov ider: BRII ENRIQUEZ Diagnosis: Last Documented On 3 12:33PM By Ramona Pastor ; [facility] Insulin Glargine Solostar 10 0 UNIT/ML Subcutaneous Solution Pen-injector 06/17/2023 Provider: OSMAR ENRIQUEZ Diagnosis: Last Documented On 3 12:33PM By Ramona Patsor ; [facility] metFORMIN HCl ER 500 MG Oral Tablet Extended Release 24 Hour 06/17/2023 Provider: BRII ENRIQUEZ Diagnosis: Last Documented On 3 12:33PM By Ramona Pastor ; [facility] Metoprolol Succinate ER 50 M G Oral Tablet Extended Release 24 Hour 06/16/2023 Provider: BRII ENRIQUEZ Diagnosis: Last Documented On 3 12:33PM By Ramona Pastor ; [facility] Gemtesa 75 MG Oral Tablet 05/22/2023 Provider: DIO MORRIS MD Diagnosis: Last Documented On 3 12:33PM By Ramona Pastor ; [facility] Atorvastatin Calcium 40 MG Oral Tablet 05/20/2023 Pr ovider: Molly Loyd NP Diagnosis: Last Documented On 3 12:33PM By Ramona Pastor ; [facility] Omeprazole 40 MG Oral Capsule Delayed Release 05/20/20 Provider: Molly Loyd NP Diagnosis: Last Documented On 3 12:33PM By Ramona Pastor ; [facility], [facility] Pantoprazole Sodium 40 MG Or al Tablet Delayed Release 05/20/2023 Provider: BRII ENRIQUEZ Diagnosis: Last Documented On 3 12:33PM By Ramona Pastor ; [facility], [facility] Tamsulosin HCl 0.4 MG Oral Capsule 05/20/2023 Provid er: Molly Loyd NP Diagnosis: Last Documented On 3 12:33PM By Ramona Pastor ; [facility], [facility] Xarelto 15 MG Oral Tablet 05/20/2023 Provider: MARY JO ENRIQUEZ Diagnosis: Last Documented On 3 12:33PM By Ramona Pastor ; [facility], [facility] levoFLOXacin 500 MG Oral Tablet 04/22/2023 Provider: ZACKARY MORRIS MD Diagnosis: Last Documented On 3 12:33PM By Ramona Pastor ; [facility], [facility] Metoprolol Succinate ER 50 M G Oral Tablet Extended Release 24 Hour 03/24/2023 Provider: Diagnosis: Last Documented On 3 12:33PM By Ramona Pastor ; [facility], [facility] Tobramycin 0.3% Ophthalmic Solution 02/14/2023 Provi katelin: BRII ENRIQUEZ Diagnosis: Last Documented On 3 12:33PM By Ramona Pastor ; [facility], [facility] Medications Administered Includes: Administered Medications from this encounter No Administered Medications Recorded Vital Signs Includes: Vital Signs from this encounter Vital Name 06/30/2023 01:52P Height (in) 69 Weight (lb) 181 Body Mass Index 26.7 Body Surface Area 2 Note: hdv Last Documented: On 06/30/2023 1:52PM ; [facility], [facility] Results Includes: Results discussed during this encounter [...] Documented On 3 1:51PM ; [facility] Caffeine use 06/23/2023 Last Documented On 3 1:51PM ; [facility] No recent change in diet 06/23/2023 Last Documented On 3 1:51PM ; [facility] Not exercising regularly 06/23/2023 Last Documented On 3 1:51PM ; [facility] Not using alcohol 06/23/2023 Last Documented On 3 1:51PM ; [facility] Not using drugs 06/23/2023 Last Documented On 3 1:51PM ; [facility] Yes, current smoker. 06/23/2023 Last Documented On 3 1:51PM ; [facility] Smoking Status Unknown Procedures and Surgical History Includes: Procedures from this encounter Procedures Code Diagnosis Performing Provider Service L ocation Service Date intervention and counseling on cessation of tobacco use 4000F Last Documented On 3 1:51PM ; [facility] use of tobacco assessment performed 1000F Last Documented On 3 1:51PM ; [facility] patient screened for future fall risk: documentation of any fall with injury in past year 1100F Last Documented On 3 1:51PM ; [facility] an X-ray was performed [id number] Last Documented On 3 1:51PM ; [facility] Surgical History Last Updated History of appendectomy 06/23/2023 Last Documented On 3 1:51PM ; [facility] History of heart surgery 06/23/2023 Last Documented On 3 1:51PM ; [facility] History of hernia repair 06/23/2023 Last Documented On 3 1:51PM ; [facility] Medical History Includes: Medical History addressed during this encounter Description Last Updated History of arthritis 06/23/2023 Last Documented On 3 1:51PM ; [facility] History of diabetes mellitus 06/23/2023 Last Documented On 3 1:51PM ; [facility], [facility] History of Fractures 06/23/2023 Last Documented On 3 1:51PM ; [facility], [facility] History of Heart Attack 06/23/2023 Last Documented On 3 1:51PM ; [facility], [facility] History of heart disease 06/23/2023 Last Documented On 3 1:51PM ; [facility], [facility] History of Heartburn / Acid Reflux 06/23 Last Documented On 3 1:51PM ; [facility], [facility] History of History of Gallbladder 2022 Last Documented On 3 1:51PM ; [facility], [facility] History of Hypertension 06/23/2023 Last Documented On 3 1:51PM ; [facility], [facility] History of Previous Fractures 06/23/2023 Last Documented On 3 1:51PM ; [facility], [facility] History of Thyroid Disease 06/23/2023 Last Documented On 3 1:51PM ; [facility], [facility] Family History Includes: Family History addressed during this encounter Description Last Updated Diabetes mellitus 06/23/2023 Last Documented On 3 1:51PM ; [facility], [facility] Family history of cancer 06/23/2023 Last Documented On 3 1:51PM ; [facility], [facility] Review of Systems Includes: Review of Systems [...] Active Last Documented On 3 12:42PM ; [facility], [facility] Encounters Encounter Provider Location Date Check-In Time Check-Out Time Diagnosis Follow Up Jaz Winkler PA-C [facility] B 3 1:41PM 2:12PM Overweight Insurance Includes: Active Insurance Policies Plan Name Member ID Group # Subscriber Relationship Effect prasanna Dates 1 - BCBS ([place]) Medicare [id number] Zackary Carrasco Self 08/07/2022 - Un known Clinical Notes Includes: Clinical Notes from this encounter * Progress note Date Encounter Last Documented by 06/30/2023 Follow Up Last documented on 07/03/2023; 9:58 AM, Jaz Winkler PA-C; [facility] Active Problems & Conditions - Left Elbow [...]
--- OUTSIDE RECORDS SUMMARY | 2025-01-24 16:28 | XMS_ITS ---
Care Plan - [facility] Created on: January 24, 2025 Zackary Carrasco : 1950 Sex: Male Author Organization [facility] Address [address] [place] [phone] Phone Care Team Providers Care Funeral Pre Need Consultant Name Role Phone Ghulam ARIAS, Kristofer Saenz Unavailable [phone] BRII ENRIQUEZ Unavailable [phone]
--- OUTSIDE RECORDS SUMMARY | 2025-01-24 16:28 | XMS_ITS ---
Author Organization [facility] Address [address] [place] [address] Phone Care Team Providers Care Route Specialist Name Role Phone Ghulam ARIAS, Kristofer Saenz Unavailable [phone] BRII ENRIQUEZ Unavailable [phone] Problems Includes: Active, inactive, and resolved Problems All Visits Onset Date Resolved Date Provider Condition S tatus Left Elbow Joint Pain 06/23/2023 Giuseppe Winkler PA-C Active Last Documented On 3 12:34PM ; [facility] Plan of Treatment Instructions to patient Intervention and counseling on cessation of tobacco use Last Documented On 3 12:43PM ; [facility] Lose weight Last Documented On 3 12:43PM ; [facility] Intervention and counseling on cessation of tobacco use Last Documented On 3 2:39PM ; [facility] Lose weight Last Documented On 3 2:39PM ; [facility] Intervention and counseling on cessation of tobacco use Last Documented On 3 1:51PM ; [facility] Lose weight Last Documented On 3 1:51PM ; [facility] Intervention and counseling on cessation of tobacco use Last Documented On 3 1:03PM ; [facility] Lose weight Last Documented On 3 1:02PM ; [facility] Assessments Includes: Assessments for all patient encounters Findings Encounter Date Overweight Follow Up with Jaz GARCIAC 08/04/2023 Last Documented On 3 12:50PM ; [facility] Overweight Follow Up with Jaz [facility] 07/14/2023 Last Documented On 3 1:01PM ; [facility] Overweight Follow Up with Jaz bland PA-C 06/30/2023 Last Documented On 3 9:58AM ; [facility] Overweight Physician Specified with Jaz Winkler PA-C 06/23/2023 Last Documented On 3 1:31PM ; [facility] Instructions Includes: Instructions for all patient encounters Instructions to patient Intervention and counseling on cessation of tobacco use Last Documented On 3 12:43PM ; [facility] Lose weight Last Documented On 3 12:43PM ; [facility] Intervention and counseling on cessation of tobacco use Last Documented On 3 2:39PM ; [facility] Lose weight Last Documented On 3 2:39PM ; [facility] Intervention and counseling on cessation of tobacco use Last Documented On 3 1:51PM ; [facility] Lose weight Last Documented On 3 1:51PM ; [facility] Intervention and counseling on cessation of tobacco use Last Documented On 3 1:03PM ; [facility] Lose weight Last Documented On 3 1:02PM ; [facility] Medical Equipment - Implanted Devices Includes: Current and historical Devices No Medical Equipment Recorded Medications Includes: Current and historical Medications Current Medications (continue as prescribed) Ciprofloxacin HCl 500 MG Oral Tablet 06/18/2023 Prov ider: BRII ENRIQUEZ Diagnosis: Last Documented On 3 12:33PM By Ramona Pastor ; [facility] Insulin Glargine Solostar 10 0 UNIT/ML Subcutaneous Solution Pen-injector 06/17/2023 Provider: OSMAR ENRIQUEZ Diagnosis: Last Documented On 3 12:33PM By Ramona Pastor ; [facility] metFORMIN HCl ER 500 [...] On 3 12:33PM By Ramona Pastor ; [facility] Atorvastatin Calcium 40 MG Oral Tablet 05/20/2023 Pr ovider: Molly Loyd NP Diagnosis: Last Documented On 3 12:33PM By Ramona Pastor ; [facility] Omeprazole 40 MG Oral Capsule Delayed Release 05/20/20 Provider: Molly Loyd NP Diagnosis: Last Documented On 3 12:33PM By Ramona Pastor ; [facility] Pantoprazole Sodium 40 MG Or al Tablet Delayed Release 05/20/2023 Provider: BRII ENRIQUEZ Diagnosis: Last Documented On 3 12:33PM By Ramona Pastor ; [facility] Tamsulosin HCl 0.4 MG Oral Capsule 05/20/2023 Provid er: Molly Loyd NP Diagnosis: Last Documented On 3 12:33PM By Ramona Pastor ; [facility] Xarelto 15 MG Oral Tablet 05/20/2023 Provider: MARY JO ENRIQUEZ Diagnosis: Last Documented On 3 12:33PM By Ramona Pastor ; [facility] levoFLOXacin 500 MG Oral Tablet 04/22/2023 Provider: ZACKARY MORRIS MD Diagnosis: Last Documented On 3 12:33PM By Ramona Pastor ; [facility] Metoprolol Succinate ER 50 M G Oral Tablet Extended Release 24 Hour 03/24/2023 Provider: Diagnosis: Last Documented On 3 12:33PM By Ramona Pastor ; [facility] Tobramycin 0.3% Ophthalmic Solution 02/14/2023 Provi katelin: BRII ENRIQUEZ Diagnosis: Last Documented On 3 12:33PM By Ramona Pastor ; [facility] Medications Administered Includes: Administered Medications in patient's [...] 06/23/2023 Last Documented On 3 1:31PM ; [facility] No recent change in diet 06/23/2023 Last Documented On 3 1:31PM ; [facility] Not exercising regularly 06/23/2023 Last Documented On 3 1:31PM ; [facility] Not using alcohol 06/23/2023 Last Documented On 3 1:31PM ; [facility] Not using drugs 06/23/2023 Last Documented On 3 1:31PM ; [facility] Yes, current smoker. 06/23/2023 Last Documented On 3 1:31PM ; [facility] Smoking Status Unknown Procedures and Surgical History Surgical History Last Updated History of appendectomy 06/23/2023 Last Documented On 3 1:31PM ; [facility] History of heart surgery 06/23/2023 Last Documented On 3 1:31PM ; [facility] History of hernia repair 06/23/2023 Last Documented On 3 1:31PM ; [facility] Medical History Includes: Medical History in patient's chart Description Last Updated History of arthritis 06/23/2023 Last Documented On 3 1:31PM ; [facility] History of diabetes mellitus 06/23/2023 Last Documented On 3 1:31PM ; [facility] History of Fractures 06/23/2023 Last Documented On 3 1:31PM ; [facility] History of Heart Attack 06/23/2023 Last Documented On 3 1:31PM ; [facility] History of heart disease 06/23/2023 Last Documented On 3 1:31PM ; [facility] History of Heartburn / Acid Reflux 06/23 Last Documented On 3 1:31PM ; [facility] History of History of Gallbladder 2022 Last Documented On 3 1:31PM ; [facility] History of Hypertension 06/23/2023 Last Documented On 3 1:31PM ; [facility] History of Previous Fractures 06/23/2023 Last Documented On 3 1:31PM ; [facility] History of Thyroid Disease 06/23/2023 Last Documented On 3 1:31PM ; [facility] Family History Includes: Family History in patient's chart Description Last Updated Diabetes mellitus 06/23/2023 Last Documented On 3 1:31PM ; [facility] Family history of cancer 06/23/2023 Last Documented On 3 1:31PM ; [facility] Review of Systems Review of Systems not [...] Active Last Documented On 3 12:42PM ; [facility] Insurance Includes: Active Insurance Policies Plan Name Member ID Group # Subscriber Relationship Effect prasanna Dates 1 - [employer] ([place]) Medicare [id number] Zackary Toy Self 08/07/2022 - Un known Clinical Notes Includes: Signed Clinical Notes starting from 09/19/2022 No Clinical Notes Recorded
--- OUTSIDE RECORDS SUMMARY | 2025-01-24 16:28 | XMS_ITS | Clinical Summary ---
Author Organization [facility] , [facility] Address [address] [place] [phone] Phone Care Team Providers Care Mammalogy Teacher Name Role Phone Ghulam ARIAS, Kristofer Saenz Unavailable Unavail able BRII ENRIQUEZ Unavailable [phone] Reason for Visit and Chief Complaint The Chief Complaint is: Left elbow pain Problems Includes: Problems addressed during this encounter and other active Problems Current Visit Onset Date Resolved Date Provider Arti felix Status Left Elbow Joint Pain 06/23/2023 Giuseppe Winkler PA-C Active Last Documented On 12:34PM ; [facility], [facility] Plan of Treatment Fall Risk Assessment: [...] - Last Documented On 06/24/2023 1:31PM ; [facility], [facility] I recommended casting but I think we [...] - Last Documented On 06/24/2023 1:31PM ; [facility], [facility] Instructions to patient Intervention and counseling on cessation of tobacco use Last Documented On 3 1:03PM ; [facility], [facility] Lose weight Last Documented On 3 1:02PM ; [facility], [facility] Assessments Includes: Assessments from this encounter Findings - Overweight - Last Documented On 06/24/2023 1:31PM ; [facility], [facility] Surgical wound left elbow - Last Documented On 06/24/2023 1:31PM ; [facility] nondisplaced left distal humerus fracture - Last Documented On 06/24/2023 1:31PM ; [facility] Instructions Includes: Instructions from this encounter Instructions to patient Intervention and counseling on cessation of tobacco use Last Documented On 3 1:03PM ; [facility] Lose weight Last Documented On 3 1:02PM ; [facility] Medical Equipment - Implanted Devices Includes: Current Devices No Medical Equipment Recorded Medications Includes: Medications discussed during this encounter and other current Medications Current Medications (continue as prescribed) Ciprofloxacin HCl 500 MG Oral Tablet 06/18/2023 Prov ider: BRII ENRIQUEZ Diagnosis: Last Documented On 3 12:33PM By Ramona Pastor ; [facility] Insulin Glargine Solostar 10 0 UNIT/ML Subcutaneous Solution Pen-injector 06/17/2023 Provider: OSMAR ENRIQUEZ Diagnosis: Last Documented On 3 12:33PM By Ramona Pastor ; [facility] metFORMIN HCl ER 500 MG Oral Tablet Extended Release 24 Hour 06/17/2023 Provider: BRII ENRIQUEZ Diagnosis: Last Documented On 3 12:33PM By Ramona Pastor ; [facility] Metoprolol Succinate ER 50 M G Oral Tablet Extended Release 24 Hour 06/16/2023 Provider: BRII ENRIQUEZ Diagnosis: Last Documented On 3 12:33PM By Ramona Pastor ; [facility] Gemtesa 75 MG Oral Tablet 05/22/2023 Provider: DIO MORRIS MD Diagnosis: Last Documented On 3 12:33PM By Ramona Pastor ; [facility] Atorvastatin Calcium 40 MG Oral Tablet 05/20/2023 Pr ovider: Molly Loyd NP Diagnosis: Last Documented On 3 12:33PM By Ramona Pastor ; [facility] Omeprazole 40 MG Oral Capsule Delayed Release 05/20/20 Provider: Molly Loyd NP Diagnosis: Last Documented On 3 12:33PM By Ramona Pastor ; [facility], [facility] Pantoprazole Sodium 40 MG Or al Tablet Delayed Release 05/20/2023 Provider: BRII ENRIQUEZ Diagnosis: Last Documented On 3 12:33PM By Ramona Pastor ; [facility], [facility] Tamsulosin HCl 0.4 MG Oral Capsule 05/20/2023 Provid er: Molly Loyd NP Diagnosis: Last Documented On 3 12:33PM By Ramona Pastor ; [facility], [facility] Xarelto 15 MG Oral Tablet 05/20/2023 Provider: MARY JO ENRIQUEZ Diagnosis: Last Documented On 3 12:33PM By Ramona Pastor ; [facility], [facility] levoFLOXacin 500 MG Oral Tablet 04/22/2023 Provider: DEION MORRIS MD Diagnosis: Last Documented On 3 12:33PM By Ramona Pastor ; [facility], [facility] Metoprolol Succinate ER 50 M G Oral Tablet Extended Release 24 Hour 03/24/2023 Provider: Diagnosis: Last Documented On 3 12:33PM By Ramona Pastor ; [facility], [facility] Tobramycin 0.3% Ophthalmic Solution 02/14/2023 Provi katelin: BRII ENRIQUEZ Diagnosis: Last Documented On 3 12:33PM By Ramona Pastor ; [facility], [facility] Medications Administered Includes: Administered Medications from this encounter No Administered Medications Recorded Vital Signs Includes: Vital Signs from this encounter Vital Name 06/23/2023 01:01P Height (in) 69 Weight (lb) 181 Body Mass Index 26.7 Body Surface Area 2 Note: hdv Last Documented: On 06/23/2023 1:01PM ; [facility], [facility] Results Includes: Results discussed during this [...] 06/23/2023 Last Documented On 3 1:31PM ; [facility], [facility] Caffeine use 06/23/2023 Last Documented On 3 1:31PM ; [facility], [facility] No recent change in diet 06/23/2023 Last Documented On 3 1:31PM ; [facility], [facility] Not exercising regularly 06/23/2023 Last Documented On 3 1:31PM ; [facility] Not using alcohol 06/23/2023 Last Documented On 3 1:31PM ; [facility], [facility] Not using drugs 06/23/2023 Last Documented On 3 1:31PM ; [facility], [facility] Yes, current smoker. 06/23/2023 Last Documented On 3 1:31PM ; [facility], [facility] Smoking Status Unknown Procedures and Surgical History Includes: Procedures from this encounter Procedures Code Diagnosis Performing Provider Service L ocation Service Date intervention and counseling on cessation of tobacco use 4000F Last Documented On 3 1:03PM ; [facility], [facility] use of tobacco assessment performed 1000F Last Documented On 3 1:02PM ; [facility], [facility] patient screened for future fall risk: documentation of any fall with injury in past year 1100F Last Documented On 3 1:02PM ; [facility], [facility] an X-ray was performed 04666 Last Documented On 3 1:02PM ; [facility], [facility] Surgical History Last Updated History of appendectomy 06/23/2023 Last Documented On 3 1:31PM ; [facility], [facility] History of heart surgery 06/23/2023 Last Documented On 3 1:31PM ; [facility], [facility] History of hernia repair 06/23/2023 Last Documented On 3 1:31PM ; [facility], [facility] Medical History Includes: Medical History addressed during this encounter Description Last Updated History of arthritis 06/23/2023 Last Documented On 3 1:31PM ; [facility], [facility] History of diabetes mellitus 06/23/2023 Last Documented On 3 1:31PM ; [facility] History of Fractures 06/23/2023 Last Documented On 3 1:31PM ; [facility], [facility] History of Heart Attack 06/23/2023 Last Documented On 3 1:31PM ; [facility], [facility] History of heart disease 06/23/2023 Last Documented On 3 1:31PM ; [facility] History of Heartburn / Acid Reflux 06/23 Last Documented On 3 1:31PM ; [facility], [facility] History of History of Gallbladder 2022 Last Documented On 3 1:31PM ; [facility], [facility] History of Hypertension 06/23/2023 Last Documented On 3 1:31PM ; [facility], [facility] History of Previous Fractures 06/23/2023 Last Documented On 3 1:31PM ; [facility], [facility] History of Thyroid Disease 06/23/2023 Last Documented On 3 1:31PM ; [facility], [facility] Family History Includes: Family History addressed during this encounter Description Last Updated Diabetes mellitus 06/23/2023 Last Documented On 3 1:31PM ; [facility], [facility] Family history of cancer 06/23/2023 Last Documented On 3 1:31PM ; [facility], [facility] Review of Systems Includes: Review of [...] Active Last Documented On 3 12:42PM ; [facility] Encounters Encounter Provider Location Date Check-In Time Check-Out Time Diagnosis Physician Specified Jaz Winkler PA-C [facility] 06/23/20 23 12:26PM 12:50PM Overweight Insurance Includes: Active Insurance Policies Plan Name Member ID Group # Subscriber Relationship Effect prasanna Dates 1 - [facility] Medicare [id number] Deion Carrasco Self 08/07/2022 - Un known Clinical Notes Includes: Clinical Notes from this encounter * Progress note Date Encounter Last Documented by 06/23/2023 Physician Specified Last yumiko guajardo on 06/24/2023; 1:31 PM, Jaz Winkler PA-C; [facility] Active Problems & Conditions - Left [...]
--- NOTE | 2025-01-24 16:40 | PC.NURSE ---
arrived to floor by omaira ramos from ED at 16:17
[2025-01-24 17:21] LABS: Troponin I 0.05 ng/ml (0.00-0.034)
[2025-01-24] MEDS: humaLOG 100 UNITS/ML 10ML VIAL (SSI) SUBCUT ×2 (17:43→22:26)
[2025-01-24] MEDS: METOPROLOL TARTRATE 5MG/5ML VIAL 5 MG IV (17:43)
[2025-01-24] MEDS: ENOXAPARIN 80MG/0.8ML SYRINGE 80 MG SUBCUT (17:44)
--- NOTE | 2025-01-24 17:53 | ECG_ITS ---
APPROVED REPORT Exam: Resting ECG HR:117 bpm ECG Measurements Heart Rate 117 AXES QRSd 116 QRS 20 QT 356 T 120 QTc 425 Conclusion Sinus tach with short GA Old ANTERIOR /inferior changes ABNORMAL ECG UNCONFIRMED REPORT Electronically signed by : Roc Fajardo MD 01/25/2025 08:40:56
--- NOTE | 2025-01-24 18:18 | ECG_ITS ---
APPROVED REPORT Exam: Resting ECG HR:106 bpm ECG Measurements Heart Rate 106 AXES QRSd 105 QRS 82 QT 349 T 120 QTc 411 Conclusion Tachycardia with short PA interval - p waves noted Old ant/inf changes ABNORMAL ECG UNCONFIRMED REPORT Electronically signed by : Roc Fajardo MD 01/25/2025 08:39:53
--- NOTE | 2025-01-24 18:23 | XR_ITS ---
PROCEDURE INFORMATION: Exam: XR Chest Exam date and time: 01/24/2025 6:39 PM Age: 74 years old Clinical indication: Other: Change in mental status; Additional info: Change in mental status, rapid response TECHNIQUE: Imaging protocol: Radiologic exam of the chest. Views: 1 view. COMPARISON: CR XR CHEST PORTABLE 01/24/2025 10:34 AM FINDINGS: Lungs: Consolidative opacity in the left lung base, new since chest radiograph performed approximately 8 hours prior. Pleural spaces: Possible small left pleural effusion. No pneumothorax. Heart/Mediastinum: Cardiomediastinal silhouette is unchanged from prior exam. Bones/joints: No evidence of acute osseous abnormality. IMPRESSION: 1. Consolidative opacity in the left lung base, new since chest radiograph performed approximately 8 hours prior. Findings could represent atelectasis or infiltrate. 2. Possible small left pleural effusion.
[2025-01-24 18:37] LABS: ABG Base Excess -21.3 mmol/L (-2.4-2.3); ABG HCO3 8.2 mmhg (22.0-26.0); ABG Oxygen Saturation 100 % (90-100); ABG PCO2 26.2 mmhg (35.0-45.0); Chloride, Arterial 100 mmol/L (98-107); Potassium, Arterial 5.1 mmoL/L (3.5-5.1); Sodium Arterial 131 mmol/L (137-145)
--- NOTE | 2025-01-24 18:38 | CT_ITS ---
PROCEDURE INFORMATION: Exam: CT Abdomen Without Contrast Exam date and time: 01/24/2025 7:40 PM Age: 74 years old Clinical indication: Abdominal pain; Additional info: Abd/back pain rapid response TECHNIQUE: Imaging protocol: Computed tomography of the abdomen without contrast. Radiation optimization: All CT scans at this facility use at least one of these dose optimization techniques: automated exposure control; mA and/or kV adjustment per patient size (includes targeted exams where dose is matched to clinical indication); or iterative reconstruction. COMPARISON: 1. CT ABDOMEN PELVIS WO CON 10/03/2023 1:[address] ANGIO CHEST PE PROTOCOL 12/22/2024 6:02 PM FINDINGS: Limitations: Lack of intravenous contrast material limits sensitivity in detection and/or characterization of intra-abdominal pathology. Tubes, catheters and devices: [place] anti-reflux device in stable position. Pleural spaces: Small bilateral pleural effusions, left greater than right. Impression left. Liver: Unremarkable as visualized. Gallbladder and biliary ducts: Status post cholecystectomy. Pancreas: Unremarkable as visualized. Spleen: Unremarkable. Adrenal glands: Unremarkable. Kidneys: No hydronephrosis. Kidneys are otherwise unremarkable as visualized. Stomach and bowel: Small periampullary duodenal diverticulum, not significantly changed from prior exam. Visualized portion of the gastrointestinal tract is otherwise unremarkable. Intraperitoneal space: Generalized mesenteric fat stranding and trace scattered ascites, new since 12/22/[address] No evidence of pneumoperitoneum. Vasculature: Moderate amount of calcific arterial atherosclerosis throughout the aorta. No abdominal aortic aneurysm. Lymph nodes: Unremarkable. Bones/joints: No evidence of acute osseous abnormality. Soft tissues: Mild anasarca. Periumbilical skin thickening suggestive of dermatitis, incompletely evaluated. IMPRESSION: 1. Generalized mesenteric fat stranding and trace scattered ascites, new since 12/22/[address] 2. Mild anasarca. 3. Periumbilical skin thickening suggestive of dermatitis, incompletely evaluated. Recommend correlation direct visualization.
[2025-01-24 18:39] LABS: ABG PH 7.11 mmol/L (7.35-7.45); Oxygen 100% NRM %
[2025-01-24 18:40] LABS: Calcium, Arterial 4.9 mg/dL (8.5-10.1); Lactate Arterial 7.1 mmol/L (0.4-2.0)
[2025-01-24 18:50] LABS: Basophils # 0.1 K/mm3 (0-0.2); Basophils % 0.6 % (0.1-2.0); Eosinophils # 0.1 Kmm3 (0.0-0.4); Eosinophils % 0.8 % (0.1-12.0); Hematocrit 45.3 % (42.0-52.0); Hemoglobin 13.9 g/dL (14.1-18.0); Lymphocytes # 2.7 K/mm3 (0.7-4.5); Lymphocytes % 24.5 % (10-50); Mean Corpuscular HGB Conc 30.7 g/dL (31.8-35.4); Mean Corpuscular Hemoglobin 28.4 pg (27.0-31.2); Mean Corpuscular Volume 92.4 fl (80-94); Mean Platelet Volume 10.2 fl (7.4-10.4); Monocytes # 1.3 K/mm3 (0.1-1.0); Monocytes % 11.7 % (1.7-9.3); Neutrophils # 6.8 K/mm3 (1.8-7.8); Neutrophils % 61.9 % (37.0-80.0); Nucleated Red Blood Cells # 0 10^3/uL; Nucleated Red Blood Cells % 0 %; Platelet Count 287 K/mm3 (142-424); Red Cell Distribution Width 16.2 % (11.5-17.5); Red Cell Distribution Width-SD 54.3 fL
[2025-01-24 18:58] LABS: Chloride 101 mmol/L (98-107); Sodium 132 mmol/L (136-145)
[2025-01-24 18:59] LABS: Potassium 4.9 mmoL/L (3.5-5.1)
[2025-01-24 19:00] LABS: Troponin I 0.05 ng/ml (0.00-0.034)
[2025-01-24 19:01] LABS: POC Glucose,Bedside 341 (70-110)
[2025-01-24 19:01] LABS: Alanine Aminotransferase 113 U/L (12-78); Albumin/Globulin Ratio 1.2 (1.1-1.8); Alkaline Phosphatase 229 U/L (38-126); Anion Gap 23.9 mEq/L (5-15); Aspartate Amino Transferase 81 U/L (17-59); Bilirubin,Total 1.8 mg/dl (0.2-1.3); Blood Urea Nitrogen 44 mg/dl (9-20); Carbon Dioxide 12 mmol/L (22.0-30.0); Creatinine Clearance Estimated 32 mL/min (50-200); Estimated Glomerular Filt Rate 25 ml/min (>60); GFR (African American) 31 ML/MIN (>60); Globulin 3.4 g/dL (1.3-3.2); Total Protein,Serum 7.4 g/dl (6.3-8.2)
[2025-01-24 19:02] LABS: Glucose 322 mg/dl (74-100)
--- NOTE | 2025-01-24 19:08 | HMH.ITSTN ---
RN to bring pt down to ER CT
--- NOTE | 2025-01-24 19:33 | PC.NURSE ---
Patient left floor with staff for CT at 19:33.
--- NOTE | 2025-01-24 19:46 | PC.NURSE ---
Patient arrived back to floor with staff at 19:46.
--- NOTE | 2025-01-24 19:48 | PC.NURSE ---
metoprolol ivp started at 1750 hr 118, ended at 1755 hr 118. bp 114/72 1803 Spoke face to face with Dr Patricio. notified him that pt HR did not have any response to the metoprolol ivp. during conversation with , pt daughter stepped into [place], yelling that something was wrong with the pt. upon entering the room with md pt was noted to be lying on his back partially to the left side. face was purple, arms curled towards chest. pt was unable to respond in any manner to staff. family stated to RN that pt had just taken a drink of water before noticing pt was in distress. 1805 bp 80/43 hr dropped to 59 EKG ordered per md v/o. placed on 3 lpm. pt o2 sats still noted to be in the 80's, pt able to slightly respond to staff verbally. 1808 pt bp only able to be obtained manually. r arm 70/xx MD requests rapid response be called 1808 pt placed on nrb 1810 rapid response called 181 ordered 500ml fluid bolus 181 ordered glucagon 1mg 181 2nd iv started by TJ 20 l ua 1817 EKG able to be obtained by staff 181 requests pt be placed on cpap at this time. 1820 ABG obtained 182 zofran 4mg ordered r/t pt gagging stating he is going to be sick. Cpap removed 182 Glucagon 1mg iv admin 1824 pt placed NRB 1828 weaned to 3lpm r/t sats 100 1830 bp l arm 120/xx 1832 r am bp with monitor 135/90 1832 per md give pt 40mg of lasix 1839 critical lab values on abg given to dr patricio 1840 sats 99 weaned to 1lpm 1840 notified md that pt corrected labs on abg show CA of 4.9 per RT 184 weaned to ra r/t sats 99 1850 at end of rr pt hr noted to be in the low 100's pt a/o 185 received order for bladder scan. no urine noted at this time.
[2025-01-24] MEDS: MILRINONE LACTATE 20 MG in 0.9 % SODIUM CHLORIDE 80 ML 3.25 MG IV (20:26)
[2025-01-24 21:22] LABS: POC Glucose,Bedside 289 (70-110)
[2025-01-24] MEDS: INSULIN GLARGINE 100 UNITS/ML 10ML VIAL 30 UNIT SUBCUT (22:25)
[2025-01-24 22:39] LABS: Reflex Lactic Add Lactic Reflex
[2025-01-24 23:13] LABS: Lactic Acid Follow Up (RFLX 1) 1.7 mmol/L (0.7-2.1)
[2025-01-25] VITALS (27 sets, daily range): BP systolic 94–149; BP diastolic 55–98; PULSE 65–130; RESP 15–23; TEMP 36.1–37.1; O2SAT 94–100; BMI 28.3
[2025-01-25] MEDS: ACETAMINOPHEN 325MG TAB 650 MG PO ×2 (00:09→22:06)
[2025-01-25] MEDS: ENOXAPARIN 80MG/0.8ML SYRINGE 80 MG SUBCUT (04:30)
[2025-01-25 06:46] LABS: Basophils % 0.4 % (0.1-2.0); Eosinophils # 0.1 Kmm3 (0.0-0.4); Hematocrit 36.6 % (42.0-52.0); Lymphocytes # 1.2 K/mm3 (0.7-4.5); Lymphocytes % 15.6 % (10-50); Mean Corpuscular HGB Conc 32.8 g/dL (31.8-35.4); Mean Corpuscular Hemoglobin 28.3 pg (27.0-31.2); Mean Corpuscular Volume 86.3 fl (80-94); Mean Platelet Volume 10.5 fl (7.4-10.4); Monocytes # 0.9 K/mm3 (0.1-1.0); Neutrophils # 5.6 K/mm3 (1.8-7.8); Neutrophils % 70.6 % (37.0-80.0); Nucleated Red Blood Cells # 0 10^3/uL; Nucleated Red Blood Cells % 0 %; Platelet Count 261 K/mm3 (142-424); Red Blood Count 4.24 M/mm3 (4.60-6.20); Red Cell Distribution Width 15.6 % (11.5-17.5); Red Cell Distribution Width-SD 48.9 fL; White Blood Count 7.9 K/mm3 (4.8-10.8)
[2025-01-25 06:51] LABS: Albumin Level 3.4 g/dl (3.5-5.0); Chloride 105 mmol/L (98-107)
[2025-01-25 06:52] LABS: Sodium 131 mmol/L (136-145)
[2025-01-25 06:54] LABS: Alanine Aminotransferase 105 U/L (12-78); Alkaline Phosphatase 186 U/L (38-126); Aspartate Amino Transferase 68 U/L (17-59); Bilirubin,Total 0.8 mg/dl (0.2-1.3); Blood Urea Nitrogen 49 mg/dl (9-20); Carbon Dioxide 18 mmol/L (22.0-30.0); Creatinine Clearance Estimated 29 mL/min (50-200); Estimated Glomerular Filt Rate 22 ml/min (>60); GFR (African American) 27 ML/MIN (>60)
[2025-01-25 06:55] LABS: Calcium 8.7 mg/dl (8.4-10.2); Globulin 3.3 g/dL (1.3-3.2); Glucose 121 mg/dl (74-100); Magnesium 1.9 mg/dl (1.6-2.3); Total Protein,Serum 6.7 g/dl (6.3-8.2)
[2025-01-25 07:39] LABS: Hemoglobin 12.1 g/dL (14.1-18.0)
--- NOTE | 2025-01-25 08:05 | XR_ITS ---
FINAL REPORT CLINICAL HISTORY: f/u possible aspiration COMPARISON: 01/24/2025 FINDINGS: The heart size is mildly enlarged. Sternotomy wires are present. The lungs are underinflated. Patchy airspace infiltrates in the left upper and lower lobes is probably due to acute pneumonia which is new since the previous exam. There are no pleural effusions. There is no pneumothorax. There is no osseous abnormality. IMPRESSION: No acute pneumonia left upper and lower lobes. Reviewed, Interpreted and Dictated by Duran Macias MD Transcribed by Veronica Wilder Authenticated and [facility]
--- NOTE | 2025-01-25 08:16 | HMH.PHAINT1 ---
Pharmacy Intervention Comments: HOME MEDICATION LIST VERIFIED USING LIST FROM OUTPATIENT PHARMACY
[2025-01-25] MEDS: LEVOTHYROXINE 88MCG (0.088MG) TAB 88 MCG PO (09:09)
[2025-01-25] MEDS: BUMETANIDE 1MG/4ML VIAL 1 MG IV ×2 (09:09→16:33)
[2025-01-25] MEDS: EMPAGLIFLOZIN 10MG TABLET 10 MG PO (09:09)
[2025-01-25] MEDS: CLOPIDOGREL 75MG TAB 75 MG PO (09:09)
[2025-01-25] MEDS: ASPIRIN EC 81MG TABLET 81 MG PO (09:09)
[2025-01-25] MEDS: SPIRONOLACTONE 25MG TABLET 25 MG PO (09:10)
[2025-01-25] MEDS: ISOSORBIDE DINITRATE 20 MG TABLET PO ×3 (09:10→20:34)
[2025-01-25] MEDS: METOPROLOL TARTRATE 25MG TABLET 25 MG PO (09:11)
[2025-01-25 11:18] LABS: POC Glucose,Bedside 200 (70-110)
--- NOTE | 2025-01-25 11:20 | EXP.CARD.PN ---
Subjective Subjective Date: 01/25/25 Time: 11:20 Principal diagnosis: HFrEF Interval history: 74-year-old white male in bed in no acute distress. States his breathing has improved since yesterday. Telemetry shows A. fib with RVR in the 120's bpm. Transient bradycardia with decreased resp effort after IV lopressor which coincided with coughing after drinking water. Treated promptly with resolution. Now on milrinone and IV bumex. Exam Data for Last 24 hours Vital signs and Labs for Last 24 Hours: Temp Pulse Resp BP Pulse Ox O2 Del Method O2 Flow Rate 97.0 F L 122 H 21 96/60 L 94 L Room Air 3 01/25/25 08:00 01/25/25 11:00 01/25/25 11:00 01/25/25 11:00 01/25/25 11:00 01/25/25 11:00 01/24/25 18:40 Laboratory Results - last 24 hr 01/24/25 10:25: Magnesium 2.2, NT-Pro-B Natriuret Pep 68826 H, TSH 11.80 H, Free T4 1.11 01/24/25 13:29: Troponin I 0.05 H 01/24/25 16:35: Troponin I 0.05 H 01/24/25 18:08: POC Glucose 341 H* 01/24/25 18:30: WBC 11.0 H, RBC 4.90, Hgb 13.9 L, Hct 45.3, MCV 92.4, MCH 28.4, MCHC 30.7 L, RDW 16.2, Plt Count 287, MPV 10.2, Neut % (Auto) 61.9, Lymph % (Auto) 24.5, Gilliam % (Auto) 11.7 H, Eos % (Auto) 0.8, Baso % (Auto) 0.6, Neut # (Auto) 6.8, Lymph # (Auto) 2.7, Gilliam # (Auto) 1.3 H, Eos # (Auto) 0.1, Baso # (Auto) 0.1, Sodium 132 L, Potassium 4.9, Chloride 101, Carbon Dioxide 12 L, Anion Gap 23.9 H, BUN 44 H, Creatinine 2.50 H, Estimated Creat Clear 32, Estimated GFR 25 L, Est GFR ( Amer) 31 L, Glucose 322 H, Calcium 9.0, Total Bilirubin 1.8 H, AST 81 H, ALT 113 H, Alkaline Phosphatase 229 H, Troponin I 0.05 H, Total Protein 7.4, Albumin 4.0, Globulin 3.4 H, Albumin/Globulin Ratio 1.2 01/24/25 18:33: O2 % 100% nrm, ABG pH 7.11 L*, ABG pCO2 26.2 L, ABG pO2 418.0 H, ABG HCO3 8.2 L, ABG Total CO2 9.0 L, ABG O2 Saturation 100, ABG Base Excess -21.3 L, ABG Sodium 131 L, ABG Potassium 5.1, ABG Chloride 100, ABG Lactate 7.1 H, Arterial Blood Potassium 5.1, Arterial Blood Chloride 100 01/24/25 21:08: POC Glucose 289 H 01/24/25 22:48: Lactate 1.7 01/25/25 05:15: WBC 7.9 D, RBC 4.24 L, Hgb 12.1 L D, Hct 36.6 L, MCV 86.3, MCH 28.3, MCHC 32.8, RDW 15.6, Plt Count 261, MPV 10.5 H, Neut % (Auto) 70.6, Lymph % (Auto) 15.6, Gilliam % (Auto) 12.0 H, Eos % (Auto) 1.0, Baso % (Auto) 0.4, Neut # (Auto) 5.6, Lymph # (Auto) 1.2, Gilliam # (Auto) 0.9, Eos # (Auto) 0.1, Baso # (Auto) 0.0, Sodium 131 L, Potassium 4.0, Chloride 105, Carbon Dioxide 18 L, Anion Gap 12.0, BUN 49 H, Creatinine 2.80 H, Estimated Creat Clear 29, Estimated GFR 22 L, Est GFR ( Amer) 27 L, Glucose 121 H D, Calcium 8.7, Magnesium 1.9 D, Total Bilirubin 0.8, AST 68 H, ALT 105 H, Alkaline Phosphatase 186 H, Total Protein 6.7, Albumin 3.4 L D, Globulin 3.3 H, Albumin/Globulin Ratio 1.0 L 01/25/25 11:06: POC Glucose 200 H I & O for Last 24 hours: Intake & Output 04/01/23/25 01/24/25 01/25/25 11:59 11:59 11:59 11:59 Intake Total 260 / 260 Output Total 1230 / 1230 Balance -970 / -970 Weight 175 lb 191 lb 9.307 oz Constitutional Constitutional: no acute distress *Routine Respiratory Exam Respiratory: Present crackles; Absent wheezes *Routine Cardiovascular Exam Cardiovascular: Present tachycardia and irregularly irregular *Routine Extremities Exam Extremities: Present edema *Routine Neurological Exam Neurological: Present alert, oriented X3 and CN II-XII intact Progress Note: A&P Assessment and plan (1) Acute on chronic HFrEF (heart failure with reduced ejection fraction): Status: Acute Assessment and Plan Assessment and Plan for All Diagnoses:: 1. Acute on chronic HFrEF -milrinone started 01/24/2025 -EF 30% -BNP 15,400 -Start IV diuretics with Bumex 1 mg twice daily -Continue GDMT with Jardiance 10 mg daily, diuretics. No DEVI/ARB/Arni due to CKD. Stop BB due to possible cardiogenic shock yesterday. -Repeat echo this admission when heart rate consistently less than 100 bpm -Consider AICD implantation this admission. Not a candidate for BiV due to narrow QRS. 2. Chronic atrial fibrillation now with RVR secondary to CHF -No anticoagulation due to history of recurrent hematuria -Prefer rate control versus rhythm control -Recommend metoprolol tartrate 25 mg BID. Avoid IV diltiazem due to cardiomyopathy. 3. CAD with history of CABG -Most recent drug-eluting stent placed in 09/2024 -Continue aspirin and Plavix along with statin therapy -Left heart catheterization, 12/27/2024, coronary disease stable with patent BLOOD to LAD, SVG to bifurcating first diagonal and SVG to PDA. SVG to circumflex was occluded. Bilateral renals were normal. 4. CKD, stage IV -baseline creatinine around 2.2-2.4 -Cr 2.8 5. Diabetes mellitus type 2 - Per hospitalist 6. Hypothyroidism -with TSH 11.8 7. Hypertension -Continue hydralazine and Isordil if needed along with beta-cholo therapy 8. DNR/DNI Stop home dose of metoprolol in light of probable brief cardiogenic shock after IV beta cholo yesterday. Tachycardia is compensatory response to CHF. Will not focus on improving heart rate but rather focus on diuresis first then heart rate should improve. Continue diuresis and milrinone. IF diuresis doesn't improve tomorrow then consider switching to dobutamine. monitor renal functions, LFT's and lactate.
[2025-01-25] MEDS: humaLOG 100 UNITS/ML 10ML VIAL (SSI) SUBCUT ×3 (12:01→20:29)
[2025-01-25] MEDS: MILRINONE LACTATE 20 MG in 0.9 % SODIUM CHLORIDE 80 ML 3.25 MG IV (15:10)
[2025-01-25] MEDS: levoFLOXacin 750 MG TABLET PO (16:34)
[2025-01-25 16:47] LABS: POC Glucose,Bedside 203 (70-110)
[2025-01-25 19:49] LABS: Adenovirus F 40/41, stool Not Detected (NotDetected); Astrovirus Not Detected (NotDetected); Campylobacter Not Detected (NotDetected); Clostridium Difficile A/B, PCR Not Detected (NotDetected); Cryptosporidium Not Detected (NotDetected); Cyclospora Cayetanesis Not Detected (NotDetected); Entamoeba histolytica Not Detected (NotDetected); Enteroaggregative E coli Not Detected (NotDetected); Enteropathogenic E coli Not Detected (NotDetected); Enterotoxigenic E coli Not Detected (NotDetected); Giardia lamblia Not Detected (NotDetected); Norovirus Not Detected (NotDetected); Plesimonas Shigalloides, PCR Not Detected (NotDetected); Rotavirus A Not Detected (NotDetected); Salmonella, PCR Not Detected (NotDetected); Sapovirus Not Detected (NotDetected); Shiga-like toxin E coli Not Detected (NotDetected); Shigella Enterovasive E coli Not Detected (NotDetected); Vibrio Cholerae Not Detected (NotDetected); Vibrio, PCR Not Detected (NotDetected); Yersinia Entercolitica, PCR Not Detected (NotDetected)
[2025-01-25 20:13] LABS: POC Glucose,Bedside 232 (70-110)
[2025-01-25] MEDS: ENOXAPARIN 100MG/ML SYRINGE 85 MG SUBCUT (20:29)
[2025-01-25] MEDS: ATORVASTATIN 40MG TABLET 40 MG PO (20:29)
[2025-01-25] MEDS: INSULIN GLARGINE 100 UNITS/ML 10ML VIAL 30 UNIT SUBCUT (20:30)
--- NOTE | 2025-01-25 22:36 | EXP.PN ---
Subjective *Date: 01/25/25 *Time: 22:36 Interval history: Better today, breathing significantly improved. Heart rate still in the 120s to 30s. Will maximize IV diuresis at this time, HR likely compensatory. Exam Data for Last 24 hours Vital signs and Labs for Last 24 Hours: Temp Pulse Resp BP Pulse Ox O2 Del Method O2 Flow Rate 98.1 F 130 H 22 145/97 H 97 Room Air 3 01/25/25 20:00 01/25/25 22:00 01/25/25 22:00 01/25/25 22:00 01/25/25 22:00 01/25/25 22:00 01/24/25 18:40 Laboratory Results - last 24 hr 01/24/25 22:48: Lactate 1.7 01/25/25 05:15: WBC 7.9 D, RBC 4.24 L, Hgb 12.1 L D, Hct 36.6 L, MCV 86.3, MCH 28.3, MCHC 32.8, RDW 15.6, Plt Count 261, MPV 10.5 H, Neut % (Auto) 70.6, Lymph % (Auto) 15.6, [place] % (Auto) 12.0 H, Eos % (Auto) 1.0, Baso % (Auto) 0.4, Neut # (Auto) 5.6, Lymph # (Auto) 1.2, [place] # (Auto) 0.9, Eos # (Auto) 0.1, Baso # (Auto) 0.0, Sodium 131 L, Potassium 4.0, Chloride 105, Carbon Dioxide 18 L, Anion Gap 12.0, BUN 49 H, Creatinine 2.80 H, Estimated Creat Clear 29, Estimated GFR 22 L, Est GFR ( Amer) 27 L, Glucose 121 H D, Calcium 8.7, Magnesium 1.9 D, Total Bilirubin 0.8, AST 68 H, ALT 105 H, Alkaline Phosphatase 186 H, Total Protein 6.7, Albumin 3.4 L D, Globulin 3.3 H, Albumin/Globulin Ratio 1.0 L 01/25/25 10:50: Stl C. cayetanensis PCR Cancelled 01/25/25 10:50: Stl C. cayetanensis PCR Not detected, Stool Rotavirus (PCR) Cancelled 01/25/25 10:50: Stool Rotavirus (PCR) Not detected, Stl Adenov F 40/41 PCR Cancelled 01/25/25 10:50: Stl Adenov F 40/41 PCR Not detected, Stool Astrovirus (PCR) Cancelled 01/25/25 10:50: Stool Astrovirus (PCR) Not detected, Stool Campylobacter PCR Cancelled 01/25/25 10:50: Stool Campylobacter PCR Not detected, Stl C.difficile Tox PCR Cancelled 01/25/25 10:50: Stl C.difficile Tox PCR Not detected, Stool Cryptosporidium PCR Cancelled 01/25/25 10:50: Stool Cryptosporidium PCR Not detected, Stl E.coli Shiga Tox PCR Cancelled 01/25/25 10:50: Stl E.coli Shiga Tox PCR Not detected, Stool E coli O157 PCR Cancelled 01/25/25 10:50: Stool E coli O157 PCR Not detected, Stl Enterotoxigenic E PCR Cancelled 01/25/25 10:50: Stl Enterotoxigenic E PCR Not detected, Stool EPEC (PCR) Cancelled 01/25/25 10:50: Stool EPEC (PCR) Not detected, Stool EAEC (PCR) Cancelled 01/25/25 10:50: Stool EAEC (PCR) Not detected, Stl E. histolytica PCR Cancelled 01/25/25 10:50: Stl E. histolytica PCR Not detected, Stool Giardia Lamblia PCR Cancelled 01/25/25 10:50: Stool Giardia Lamblia PCR Not detected, Stool Salmonella PCR Cancelled 01/25/25 10:50: Stool Salmonella PCR Not detected, Stool Sapovirus (PCR) Cancelled 01/25/25 10:50: Stool Sapovirus (PCR) Not detected, Stl P. shigelloides PCR Cancelled 01/25/25 10:50: Stl P. shigelloides PCR Not detected, Stl Shigella/EIEC PCR Cancelled 01/25/25 10:50: Stl Shigella/EIEC PCR Not detected, St Y.enterocolitica PCR Cancelled 01/25/25 10:50: St Y.enterocolitica PCR Not detected, Stool Vibrio (PCR) Cancelled 01/25/25 10:50: Stool Vibrio (PCR) Not detected, Stl Vibrio cholerae PCR Cancelled 01/25/25 10:50: Stl Vibrio cholerae PCR Not detected, Stl Norovirus GI/GII PCR Cancelled 01/25/25 10:50: Stl Norovirus GI/GII PCR Not detected 01/25/25 11:06: POC Glucose 200 H 01/25/25 16:33: POC Glucose 203 H 01/25/25 20:00: POC Glucose 232 H I & O for Last 24 hours: Intake & Output 01/22/25 01/23/25 01/24/25 01/25/25 23:59 23:59 23:59 23:59 Intake Total 260 / 260 943.776 / 943.776 Output Total 170 / 220 3315 / 3315 Balance 90 / 40 -2371.224 / -2371.224 Weight 86.6 kg 86.9 kg Constitutional Constitutional: no acute distress *Routine Respiratory Exam Respiratory: Present crackles; Absent wheezes *Routine Cardiovascular Exam Cardiovascular: Present tachycardia and irregularly irregular *Routine Extremities Exam Extremities: Present edema *Routine Neurological Exam Neurological: Present alert, oriented X3 and CN II-XII intact Assessment and Plan *Assessment and plan (1) Acute on chronic HFrEF (heart failure with reduced ejection fraction): Status: Acute Category: Medical Code(s): I50.23 - Acute on chronic systolic (congestive) heart failure Plan Zackary Carrasco is a 74-year-old male with a medical history significant for A-fib, HFrEF, CAD/CABG, NSTEMI, CKD stage IV, hypertension, type 2 diabetes, BPH, GERD who presents with progressive shortness of breath, leg swelling. Patient was recently admitted to our facility last month for similar symptoms. He states he has been adherent to his medications. In the ED, patient's heart rate 120s/130s with A-fib. Patient was initiated on amiodarone drip. Workup also consistent with HFrEF exacerbation, BNP 15,400 with gross signs of volume overload. Case discussed with ED provider and decision was made to admit patient for A-fib RVR, HFrEF exacerbation. #Acute on chronic HFrEF #A-fib RVR ? Presented with progressive shortness of breath, volume overload. BNP 15,400. Patient states he has been adherent to his medications, though he lives alone and family questions this. ? Initially started amiodarone drip for A-fib RVR, but transition off as patient has chronic A-fib. Went into transient cardiogenic shock with IV Lopressor 5, reversed with glucagon. RVR is likely, but still in the setting of decompensation. ? Continuing IV Bumex 1 mg twice daily, spironolactone 25 mg. Net -2.7 L today. ? Continue home Jardiance 10 mg. Hold metoprolol tartrate per cardiology recommendations. ? ECHO previously improved LVEF to 30% with medical management. Repeat ECHO. ? Therapeutic Lovenox. ? Cardiology considering AICD versus referral to advanced heart failure clinic in . Patient nonadherent with LifeVest. #Possible community-acquired pneumonia ? Worsening left lung opacities, though this could be worsening edema from transient cardiogenic shock. ? Started levofloxacin day 10/10. #CAD s/p CABG 2017, LUKE 2021 #CKD stage IV ? Continue aspirin 81 mg, clopidogrel 75 mg, atorvastatin 80 mg. ? Creatinine 2.8, GFR 22. Stable. #Hypothyroidism ? TSH subtherapeutic 11.8. Questionable adherence to medication. ? Continue home levothyroxine 88 mcg. #Type 2 diabetes ? Lantus insulin to 30 units nightly. Continue Jardiance 10 mg. ? ACHS glucose checks, LDSSI. #BPH ? Continue home finasteride 5 mg. #GERD ? Continue home PPI. DNR/DNI Therapeutic Lovenox
[2025-01-26] VITALS (24 sets, daily range): BP systolic 103–171; BP diastolic 52–98; PULSE 120–133; RESP 12–26; TEMP 36.6–36.9; O2SAT 93–98; BMI 28.3
[2025-01-26 06:17] LABS: POC Glucose,Bedside 134 (70-110)
[2025-01-26 06:19] LABS: Basophils % 0.4 % (0.1-2.0); Eosinophils # 0.1 Kmm3 (0.0-0.4); Eosinophils % 1.6 % (0.1-12.0); Hematocrit 34.2 % (42.0-52.0); Hemoglobin 11.4 g/dL (14.1-18.0); Lymphocytes # 1.2 K/mm3 (0.7-4.5); Mean Corpuscular HGB Conc 33.3 g/dL (31.8-35.4); Mean Corpuscular Hemoglobin 28.5 pg (27.0-31.2); Mean Corpuscular Volume 85.5 fl (80-94); Mean Platelet Volume 10.1 fl (7.4-10.4); Monocytes # 0.8 K/mm3 (0.1-1.0); Monocytes % 11.4 % (1.7-9.3); Neutrophils # 4.7 K/mm3 (1.8-7.8); Neutrophils % 69.3 % (37.0-80.0); Nucleated Red Blood Cells # 0 10^3/uL; Nucleated Red Blood Cells % 0 %; Platelet Count 226 K/mm3 (142-424); Red Cell Distribution Width 15.4 % (11.5-17.5); Red Cell Distribution Width-SD 47.8 fL; White Blood Count 6.8 K/mm3 (4.8-10.8)
[2025-01-26 06:22] LABS: Albumin Level 3.3 g/dl (3.5-5.0); Chloride 103 mmol/L (98-107); Potassium 3.7 mmoL/L (3.5-5.1); Sodium 133 mmol/L (136-145)
[2025-01-26 06:25] LABS: Alanine Aminotransferase 82 U/L (12-78); Alkaline Phosphatase 173 U/L (38-126); Anion Gap 13.7 mEq/L (5-15); Aspartate Amino Transferase 41 U/L (17-59); Bilirubin,Total 0.6 mg/dl (0.2-1.3); Blood Urea Nitrogen 45 mg/dl (9-20); Calcium 8.5 mg/dl (8.4-10.2); Carbon Dioxide 20 mmol/L (22.0-30.0); Creatinine Clearance Estimated 27 mL/min (50-200); Estimated Glomerular Filt Rate 21 ml/min (>60); GFR (African American) 25 ML/MIN (>60); Globulin 3.4 g/dL (1.3-3.2); Glucose 149 mg/dl (74-100); Lactic Acid 0.7 mmol/L (0.7-2.1); Magnesium 1.8 mg/dl (1.6-2.3); Total Protein,Serum 6.7 g/dl (6.3-8.2)
[2025-01-26] MEDS: LEVOTHYROXINE 88MCG (0.088MG) TAB 88 MCG PO (06:42)
[2025-01-26 07:09] LABS: Albumin Level 3.2 g/dl (3.5-5.0); Chloride 103 mmol/L (98-107); Sodium 133 mmol/L (136-145)
[2025-01-26 07:10] LABS: Potassium 3.9 mmoL/L (3.5-5.1)
[2025-01-26 07:12] LABS: Alanine Aminotransferase 80 U/L (12-78); Alkaline Phosphatase 171 U/L (38-126); Anion Gap 13.9 mEq/L (5-15); Aspartate Amino Transferase 39 U/L (17-59); Bilirubin,Direct 0.2 mg/dl (0.0-0.4); Bilirubin,Indirect 0.4 mg/dL (0.0-0.9); Bilirubin,Total 0.6 mg/dl (0.2-1.3); Bilirubin,Unconjugated 0.4 mg/dL (0.0-1.1); Blood Urea Nitrogen 46 mg/dl (9-20); Carbon Dioxide 20 mmol/L (22.0-30.0); Creatinine Clearance Estimated 28 mL/min (50-200); Estimated Glomerular Filt Rate 21 ml/min (>60); GFR (African American) 26 ML/MIN (>60); Phosphorous 3.5 mg/dl (2.5-4.5); Total Protein,Serum 6.4 g/dl (6.3-8.2)
[2025-01-26 07:13] LABS: Calcium 8.5 mg/dl (8.4-10.2); Glucose 148 mg/dl (74-100)
[2025-01-26] MEDS: SPIRONOLACTONE 25MG TABLET 25 MG PO (08:28)
[2025-01-26] MEDS: EMPAGLIFLOZIN 10MG TABLET 10 MG PO (08:29)
[2025-01-26] MEDS: ISOSORBIDE DINITRATE 20 MG TABLET PO ×2 (08:29→13:38)
[2025-01-26] MEDS: CLOPIDOGREL 75MG TAB 75 MG PO (08:29)
[2025-01-26] MEDS: ASPIRIN EC 81MG TABLET 81 MG PO (08:29)
[2025-01-26] MEDS: BUMETANIDE 1MG/4ML VIAL 1 MG IV ×2 (08:29→15:14)
[2025-01-26 08:45] LABS: Lactate Dehydrogenase 188 U/L (313-618)
--- NOTE | 2025-01-26 09:05 | EXP.CARD.PN ---
Subjective Subjective Date: 01/26/25 Time: 09:06 Principal diagnosis: HFrEF Interval history: 74 yo WM in bed in NAD. Breathing better this AM. Diuresed 2500 ml overnight Continues on Milrinone Tele shows a.fib at 130 bpm Exam Data for Last 24 hours Vital signs and Labs for Last 24 Hours: Temp Pulse Resp BP Pulse Ox O2 Del Method O2 Flow Rate 97.9 F 130 H 22 143/72 H 96 Room Air 3 01/26/25 08:00 01/26/25 08:00 01/26/25 08:00 01/26/25 08:00 01/26/25 08:00 01/26/25 08:30 01/24/25 18:40 Laboratory Results - last 24 hr 01/25/25 10:50: Stl C. cayetanensis PCR Cancelled 01/25/25 10:50: Stl C. cayetanensis PCR Not detected, Stool Rotavirus (PCR) Cancelled 01/25/25 10:50: Stool Rotavirus (PCR) Not detected, Stl Adenov F 40/41 PCR Cancelled 01/25/25 10:50: Stl Adenov F 40/41 PCR Not detected, Stool Astrovirus (PCR) Cancelled 01/25/25 10:50: Stool Astrovirus (PCR) Not detected, Stool Campylobacter PCR Cancelled 01/25/25 10:50: Stool Campylobacter PCR Not detected, Stl C.difficile Tox PCR Cancelled 01/25/25 10:50: Stl C.difficile Tox PCR Not detected, Stool Cryptosporidium PCR Cancelled 01/25/25 10:50: Stool Cryptosporidium PCR Not detected, Stl E.coli Shiga Tox PCR Cancelled 01/25/25 10:50: Stl E.coli Shiga Tox PCR Not detected, Stool E coli O157 PCR Cancelled 01/25/25 10:50: Stool E coli O157 PCR Not detected, Stl Enterotoxigenic E PCR Cancelled 01/25/25 10:50: Stl Enterotoxigenic E PCR Not detected, Stool EPEC (PCR) Cancelled 01/25/25 10:50: Stool EPEC (PCR) Not detected, Stool EAEC (PCR) Cancelled 01/25/25 10:50: Stool EAEC (PCR) Not detected, Stl E. histolytica PCR Cancelled 01/25/25 10:50: Stl E. histolytica PCR Not detected, Stool Giardia Lamblia PCR Cancelled 01/25/25 10:50: Stool Giardia Lamblia PCR Not detected, Stool Salmonella PCR Cancelled 01/25/25 10:50: Stool Salmonella PCR Not detected, Stool Sapovirus (PCR) Cancelled 01/25/25 10:50: Stool Sapovirus (PCR) Not detected, Stl P. shigelloides PCR Cancelled 01/25/25 10:50: Stl P. shigelloides PCR Not detected, Stl Shigella/EIEC PCR Cancelled 01/25/25 10:50: Stl Shigella/EIEC PCR Not detected, St Y.enterocolitica PCR Cancelled 01/25/25 10:50: St Y.enterocolitica PCR Not detected, Stool Vibrio (PCR) Cancelled 01/25/25 10:50: Stool Vibrio (PCR) Not detected, Stl Vibrio cholerae PCR Cancelled 01/25/25 10:50: Stl Vibrio cholerae PCR Not detected, Stl Norovirus GI/GII PCR Cancelled 01/25/25 10:50: Stl Norovirus GI/GII PCR Not detected 01/25/25 11:06: POC Glucose 200 H 01/25/25 16:33: POC Glucose 203 H 01/25/25 20:00: POC Glucose 232 H 01/26/25 05:26: WBC 6.8, RBC 4.00 L, Hgb 11.4 L, Hct 34.2 L, MCV 85.5, MCH 28.5, MCHC 33.3, RDW 15.4, Plt Count 226, MPV 10.1, Neut % (Auto) 69.3, Lymph % (Auto) 17.0, [place] % (Auto) 11.4 H, Eos % (Auto) 1.6, Baso % (Auto) 0.4, Neut # (Auto) 4.7, Lymph # (Auto) 1.2, [place] # (Auto) 0.8, Eos # (Auto) 0.1, Baso # (Auto) 0.0, Sodium 133 L 01/26/25 05:26: Sodium 133 L, Potassium 3.7 01/26/25 05:26: Potassium 3.9, Chloride 103 01/26/25 05:26: Chloride 103, Carbon Dioxide 20 L 01/26/25 05:26: Carbon Dioxide 20 L, Anion Gap 13.7 01/26/25 05:26: Anion Gap 13.9, BUN 45 H 01/26/25 05:26: BUN 46 H, Creatinine 3.00 H 01/26/25 05:26: Creatinine 2.90 H, Estimated Creat Clear 27 01/26/25 05:26: Estimated Creat Clear 28, Estimated GFR 21 L 01/26/25 05:26: Estimated GFR 21 L, Est GFR ( Amer) 25 L 01/26/25 05:26: Est GFR ( Amer) 26 L, Glucose 149 H 01/26/25 05:26: Glucose 148 H, Lactate 0.7, Calcium 8.5 01/26/25 05:26: Calcium 8.5, Phosphorus 3.5, Magnesium 1.8, Total Bilirubin 0.6 01/26/25 05:26: Total Bilirubin 0.6, Direct Bilirubin 0.2, Conjugated Bilirubin 0.0, Indirect Bilirubin 0.4, Unconjugated Bilirubin 0.4, AST 41 D 01/26/25 05:26: AST 39, ALT 82 H 01/26/25 05:26: ALT 80 H, Alkaline Phosphatase 173 H 01/26/25 05:26: Alkaline Phosphatase 171 H, Lactate Dehydrogenase 188 L, Total Protein 6.7 01/26/25 05:26: Total Protein 6.4, Albumin 3.3 L 01/26/25 05:26: Albumin 3.2 L, Globulin 3.4 H, Albumin/Globulin Ratio 1.0 L 01/26/25 06:06: POC Glucose 134 H I & O for Last 24 hours: Intake & Output 01/23/25 01/24/25 01/25/25 01/26/25 11:59 11:59 11:59 11:59 Intake Total 595 / 595 1605.776 / 1605.776 Output Total 1340 / 1340 4170 / 4170 Balance -745 / -745 -2564.224 / -2564.224 Weight 175 lb 191 lb 9.307 oz 191 lb 2.252 oz Constitutional Constitutional: no acute distress *Routine Respiratory Exam Respiratory: Present crackles; Absent rhonchi or wheezes *Routine Cardiovascular Exam Cardiovascular: Present tachycardia and irregularly irregular *Routine Extremities Exam Extremities: Present edema Progress Note: A&P Assessment and plan (1) Acute on chronic HFrEF (heart failure with reduced ejection fraction): Status: Acute (2) Atrial fibrillation with RVR: Status: Acute (3) Ischemic cardiomyopathy: Status: Acute (4) DM type 2 (diabetes mellitus, type 2): Status: Acute (5) CKD stage 4 due to type 2 diabetes mellitus: Status: Acute Assessment and Plan Assessment and Plan for All Diagnoses:: 1. Acute on chronic HFrEF -diuresed 2500 ml overnight -milrinone started 01/24/2025 -EF 30% -BNP 15,400 -IV diuretics with Bumex 1 mg twice daily -Continue GDMT with Jardiance 10 mg daily, diuretics. No DEVI/ARB/Arni due to CKD. Stopped BB due to possible cardiogenic shock. -Consider AICD implantation this admission. Not a candidate for BiV due to narrow QRS. -LFT's improving with diuresis 2. Chronic atrial fibrillation now with RVR secondary to CHF -No anticoagulation due to history of recurrent hematuria -Prefer rate control versus rhythm control but will address after CHF improved -Recommend metoprolol tartrate 25 mg BID when CHF improved. Avoid IV diltiazem due to cardiomyopathy. 3. CAD with history of CABG -Most recent drug-eluting stent placed in 09/2024 -Continue aspirin and Plavix along with statin therapy -Left heart catheterization, 12/27/2024, coronary disease stable with patent BLOOD to LAD, SVG to bifurcating first diagonal and SVG to PDA. SVG to circumflex was occluded. Bilateral renals were normal. 4. CKD, stage IV -baseline creatinine around 2.2-2.4 -Cr 2.9 5. Diabetes mellitus type 2 - Per hospitalist 6. Hypothyroidism -with TSH 11.8 7. Hypertension -use hydralazine and Isordil if needed along with beta-cholo therapy 8. DNR/DNI Stopped home dose of metoprolol in light of probable brief cardiogenic shock after IV beta cholo. Tachycardia is compensatory response to CHF. Will not focus on improving heart rate but rather focus on diuresis first then heart rate should improve. Continue diuresis and milrinone. Stop Milrinone tonight. Consider restarting beta cholo tomorrow. monitor renal functions, LFT's and lactate.
[2025-01-26] MEDS: SODIUM CHLORIDE NASAL SPRAY 44ML NS ×2 (09:46→13:38)
[2025-01-26 11:10] LABS: POC Glucose,Bedside 336 (70-110)
[2025-01-26] MEDS: humaLOG 100 UNITS/ML 10ML VIAL (SSI) SUBCUT ×3 (11:19→21:01)
--- NOTE | 2025-01-26 11:21 | P.PN_ITS ---
Subjective *Date: 01/26/25 *Time: 11:21 Interval history: Patient feeling better today. -3 L of fluid output overnight. Responding well to diuresis. Denies chest pain, nausea, vomiting. Still has some ankle edema. Tolerating p.o. intake. Medical Exam Vital signs and Labs for Last 24 Hours: Vital Signs Temp Pulse Pulse Pulse Resp BP Pulse Ox 01/26/25 11:00 131 H 12 158/92 H 96 01/26/25 10:55 01/26/25 10:00 131 H 21 163/91 H 97 01/26/25 09:05 01/26/25 09:00 131 H 25 H 149/83 H 96 01/26/25 08:30 01/26/25 08:00 120 H 01/26/25 08:00 97.9 F 130 H 22 143/72 H 96 01/26/25 06:49 130 H 20 147/81 H 98 01/26/25 06:48 01/26/25 06:00 129 H 21 147/81 H 97 01/26/25 05:00 01/26/25 05:00 128 H 23 135/74 96 01/26/25 04:00 98.2 F 129 H 23 153/92 H 96 01/26/25 04:00 126 H 01/26/25 04:00 129 H 98 01/26/25 03:00 129 H 22 103/52 L 93 L 01/26/25 03:00 01/26/25 02:00 131 H 23 149/91 H 97 01/26/25 01:00 01/26/25 01:00 130 H 22 143/84 H 98 01/26/25 00:00 126 H 01/26/25 00:00 129 H 97 01/26/25 00:00 97.8 F 130 H 22 133/76 97 01/25/25 23:00 129 H 16 131/83 96 01/25/25 23:00 129 H 18 131/83 98 01/25/25 23:00 01/25/25 22:00 130 H 22 145/97 H 97 01/25/25 21:00 01/25/25 21:00 130 H 19 149/98 H 99 01/25/25 20:00 129 H 100 01/25/25 20:00 126 H 01/25/25 20:00 98.1 F 130 H 20 141/86 H 99 01/25/25 19:00 129 H 22 128/76 97 01/25/25 18:31 01/25/25 18:00 98.6 F 129 H 18 125/87 100 01/25/25 17:50 128 H 20 129/90 99 01/25/25 16:58 01/25/25 16:00 130 H 01/25/25 16:00 128 H 98 01/25/25 16:00 128 H 18 137/91 H 98 01/25/25 15:40 01/25/25 15:00 128 H 19 108/70 L 99 01/25/25 14:00 125 H 20 112/72 97 01/25/25 13:18 01/25/25 13:00 124 H 20 94/55 L 99 01/25/25 12:30 97.9 F 124 H 20 107/66 L 97 01/25/25 12:10 124 H 99 01/25/25 12:00 120 H 01/25/25 11:30 O2 Del Method 01/26/25 11:00 Room Air 01/26/25 10:55 Room Air 01/26/25 10:00 Room Air 01/26/25 09:05 Room Air 01/26/25 09:00 Room Air 01/26/25 08:30 Room Air 01/26/25 08:00 01/26/25 08:00 Room Air 01/26/25 06:49 Room Air 01/26/25 06:48 Room Air 01/26/25 06:00 Room Air 01/26/25 05:00 Room Air 01/26/25 05:00 Room Air 01/26/25 04:00 Room Air 01/26/25 04:00 01/26/25 04:00 Room Air 01/26/25 03:00 Room Air 01/26/25 03:00 Room Air 01/26/25 02:00 Room Air 01/26/25 01:00 Room Air 01/26/25 01:00 Room Air 01/26/25 00:00 01/26/25 00:00 Room Air 01/26/25 00:00 Room Air 01/25/25 23:00 Room Air 01/25/25 23:00 Room Air 01/25/25 23:00 Room Air 01/25/25 22:00 Room Air 01/25/25 21:00 Room Air 01/25/25 21:00 Room Air 01/25/25 20:00 Room Air 01/25/25 20:00 01/25/25 20:00 Room Air 01/25/25 19:00 Room Air 01/25/25 18:31 Room Air 01/25/25 18:00 Room Air 01/25/25 17:50 Room Air 01/25/25 16:58 Room Air 01/25/25 16:00 01/25/25 16:00 Room Air 01/25/25 16:00 Room Air 01/25/25 15:40 Room Air 01/25/25 15:00 Room Air 01/25/25 14:00 Room Air 01/25/25 13:18 Room Air 01/25/25 13:00 Room Air 01/25/25 12:30 Room Air 01/25/25 12:10 Room Air 01/25/25 12:00 01/25/25 11:30 Room Air Intake and Output 01/25/25 01/26/25 01/26/25 23:59 07:59 15:59 Intake Total 547.892 / 943.776 757 / 997 240 / 997 Output Total 1775 / 4265 1525 / 2975 1450 / 2975 Balance -1227.108 / -3321.224 -768 / -1977 -1209 / Intake: Intake, Oral Amount 535 / 870 720 / 960 240 / 960 Intake, Total IV Amount 12.892 / 73.776 37 / 37 Milrinone Lactate 20 mg In 0.9 37 / 37 % Sodium Chloride 80 ml @ 0.125 MCG/KG/MIN 3.248 mls/hr IV . Q24H [facility] Rx#:[id number] Output: Output, Urine Amount 1775 / 4265 1525 / 2975 1450 / 2975 Other: Number of Voids 0 Number of Unmeasured Voids 0 0 Number of Bowel Movements 1 1 Weight 86.7 kg Patient Weight 01/26/25 23:59 Weight 86.7 kg Laboratory Results - last 24 hr 01/25/25 10:50: Stl C. cayetanensis PCR Cancelled 01/25/25 10:50: Stl C. cayetanensis PCR Not detected, Stool Rotavirus (PCR) Cancelled 01/25/25 10:50: Stool Rotavirus (PCR) Not detected, Stl Adenov F 40/41 PCR Cancelled 01/25/25 10:50: Stl Adenov F 40/41 PCR Not detected, Stool Astrovirus (PCR) Cancelled 01/25/25 10:50: Stool Astrovirus (PCR) Not detected, Stool Campylobacter PCR Cancelled 01/25/25 10:50: Stool Campylobacter PCR Not detected, Stl C.difficile Tox PCR Cancelled 01/25/25 10:50: Stl C.difficile Tox PCR Not detected, Stool Cryptosporidium PCR Cancelled 01/25/25 10:50: Stool Cryptosporidium PCR Not detected, Stl E.coli Shiga Tox PCR Cancelled 01/25/25 10:50: Stl E.coli Shiga Tox PCR Not detected, Stool E coli O157 PCR Cancelled 01/25/25 10:50: Stool E coli O157 PCR Not detected, Stl Enterotoxigenic E PCR Cancelled 01/25/25 10:50: Stl Enterotoxigenic E PCR Not detected, Stool EPEC (PCR) Cancelled 01/25/25 10:50: Stool EPEC (PCR) Not detected, Stool EAEC (PCR) Cancelled 01/25/25 10:50: Stool EAEC (PCR) Not detected, Stl E. histolytica PCR Cancelled 01/25/25 10:50: Stl E. histolytica PCR Not detected, Stool Giardia Lamblia PCR Cancelled 01/25/25 10:50: Stool Giardia [place] PCR Not detected, Stool Salmonella PCR Cancelled 01/25/25 10:50: Stool Salmonella PCR Not detected, Stool Sapovirus (PCR) Cancelled 01/25/25 10:50: Stool Sapovirus (PCR) Not detected, Stl P. shigelloides PCR Cancelled 01/25/25 10:50: Stl P. shigelloides PCR Not detected, Stl Shigella/EIEC PCR Cancelled 01/25/25 10:50: Stl Shigella/EIEC PCR Not detected, St Y.enterocolitica PCR Cancelled 01/25/25 10:50: St Y.enterocolitica PCR Not detected, Stool Vibrio (PCR) Cancelled 01/25/25 10:50: Stool Vibrio (PCR) Not detected, Stl Vibrio cholerae PCR Cancelled 01/25/25 10:50: Stl Vibrio cholerae PCR Not detected, Stl Norovirus GI/GII PCR Cancelled 01/25/25 10:50: Stl Norovirus GI/GII PCR Not detected 01/25/25 16:33: POC Glucose 203 H 01/25/25 20:00: POC Glucose 232 H 01/26/25 05:26: WBC 6.8, RBC 4.00 L, Hgb 11.4 L, Hct 34.2 L, MCV 85.5, MCH 28.5, MCHC 33.3, RDW 15.4, Plt Count 226, MPV 10.1, Neut % (Auto) 69.3, Lymph % (Auto) 17.0, [place] % (Auto) 11.4 H, Eos % (Auto) 1.6, Baso % (Auto) 0.4, Neut # (Auto) 4.7, Lymph # (Auto) 1.2, [place] # (Auto) 0.8, Eos # (Auto) 0.1, Baso # (Auto) 0.0, Sodium 133 L 01/26/25 05:26: Sodium 133 L, Potassium 3.7 01/26/25 05:26: Potassium 3.9, Chloride 103 01/26/25 05:26: Chloride 103, Carbon Dioxide 20 L 01/26/25 05:26: Carbon Dioxide 20 L, Anion Gap 13.7 01/26/25 05:26: Anion Gap 13.9, BUN 45 H 01/26/25 05:26: BUN 46 H, Creatinine 3.00 H 01/26/25 05:26: Creatinine 2.90 H, Estimated Creat Clear 27 01/26/25 05:26: Estimated Creat Clear 28, Estimated GFR 21 L 01/26/25 05:26: Estimated GFR 21 L, Est GFR ( Amer) 25 L 01/26/25 05:26: Est GFR ( Amer) 26 L, Glucose 149 H 01/26/25 05:26: Glucose 148 H, Lactate 0.7, Calcium 8.5 01/26/25 05:26: Calcium 8.5, Phosphorus 3.5, Magnesium 1.8, Total Bilirubin 0.6 01/26/25 05:26: Total Bilirubin 0.6, Direct Bilirubin 0.2, Conjugated Bilirubin 0.0, Indirect Bilirubin 0.4, Unconjugated Bilirubin 0.4, AST 41 D 01/26/25 05:26: AST 39, ALT 82 H 01/26/25 05:26: ALT 80 H, Alkaline Phosphatase 173 H 01/26/25 05:26: Alkaline Phosphatase 171 H, Lactate Dehydrogenase 188 L, Total Protein 6.7 01/26/25 05:26: Total Protein 6.4, Albumin 3.3 L 01/26/25 05:26: Albumin 3.2 L, Globulin 3.4 H, Albumin/Globulin Ratio 1.0 L 01/26/25 06:06: POC Glucose 134 H 01/26/25 11:02: POC Glucose 336 H* I & O for Labs for Last 24 Hours: Intake & Output 01/23/25 01/24/25 01/25/25 01/26/25 23:59 23:59 23:59 23:59 Intake Total 260 / 260 943.776 / 943.776 997 / 997 Output Total 170 / 220 3615 / 4265 2975 / 2975 Balance 90 / 40 -2671.224 / -3321.224 -1977 / Weight 86.6 kg 86.9 kg 86.7 kg Constitutional: Present no acute distress, average body habitus, chronically ill appearing and cooperative Head: Present atraumatic and normocephalic ENT: Present normal exam Respiratory: Present normal respiratory effort; Absent rhonchi, wheezes or crackles Cardiac: Present Tachycardia GI: Present soft, distention and normal bowel sounds; Absent tenderness Extremities: Present normal inspection, full ROM and edema (2+ to mid ferro) Skin: Present intact; Absent erythema Neuro: Present Grossly Intact, alert, awake, oriented x 3 and moves all extremities Assessment and Plan *Assessment and plan (1) Acute on chronic HFrEF (heart failure with reduced ejection fraction): Status: Acute Category: Medical Code(s): I50.23 - Acute on chronic systolic (congestive) heart failure (2) Atrial fibrillation with RVR: Status: Acute Category: Medical Code(s): I48.91 - Unspecified atrial fibrillation (3) Ischemic cardiomyopathy: Status: Acute Category: Medical Code(s): I25.5 - Ischemic cardiomyopathy (4) Hypothyroidism (acquired): Status: Acute Category: Medical Code(s): E03.9 - Hypothyroidism, unspecified (5) DM type 2 (diabetes mellitus, type 2): Status: Acute Qualifiers: Diabetes mellitus long-term insulin use: without long-term use Diabetes mellitus complication status: with other specified complication Qualified Code(s): E11.69 - Type 2 diabetes mellitus with other specified complication Category: Medical Code(s): E11.9 - Type 2 diabetes mellitus without complications (6) Pulmonary HTN: Status: Acute Category: Medical Code(s): I27.20 - Pulmonary hypertension, unspecified (7) CKD stage 4 due to type 2 diabetes mellitus: Status: Acute Category: Medical Code(s): E11.22 - Type 2 diabetes mellitus with diabetic chronic kidney disease; N18.4 - Chronic kidney disease, stage 4 (severe) (8) Coronary artery disease: Status: Acute Qualifiers: Coronary Disease-Associated Artery/Lesion type: bypass graft [place] vs. transplanted heart: [place] heart Associated angina: with other forms of angina Qualified Code(s): I25.708 - Atherosclerosis of coronary artery bypass graft(s), unspecified, with other forms of angina pectoris Category: Medical Code(s): I25.10 - Atherosclerotic heart disease of [place] coronary artery without angina pectoris (9) Presence of stent in coronary artery: Status: Acute Category: Surgical Code(s): Z95.5 - Presence of coronary angioplasty implant and graft (10) Hx of CABG: Status: Acute Category: Surgical Code(s): Z95.1 - Presence of aortocoronary bypass graft Plan Zackary Carrasco is a 74-year-old male with a medical history significant for A-fib, HFrEF, CAD/CABG, NSTEMI, CKD stage IV, hypertension, type 2 diabetes, BPH, GERD who presents with progressive shortness of breath, leg swelling. Patient was recently admitted to our facility last month for similar symptoms. He states he has been adherent to his medications. In the ED, patient's heart rate 120s/130s with A-fib. Patient was initiated on amiodarone drip. Workup also consistent with HFrEF exacerbation, BNP 15,400 with gross signs of volume overload. Case discussed with ED provider and decision was made to admit patient for A-fib RVR, HFrEF exacerbation. Responding to diuretics and milrinone. Continue current course. Cardiology assisting with care. Continues to require inpatient admission. Problems addressed as follows: #Acute on chronic HFrEF #A-fib RVR ? Presented with progressive shortness of breath, volume overload. BNP 15,400. Patient states he has been adherent to his medications, though he lives alone and family questions this. ? Initially started amiodarone drip for A-fib RVR, but transition off as patient has chronic A-fib. Went into transient cardiogenic shock with IV Lopressor 5, reversed with glucagon. RVR is likely, but still in the setting of decompensati on. ? Continuing IV Bumex 1 mg twice daily, spironolactone 25 mg. Net -4-1/2 L since admission. Continues to respond well - Continue milrinone drip. -Holding beta-blockers due to adverse event above. ? Continue home Jardiance 10 mg. - Discussed case with cardiology, recommend continuing diuretics and milrinone. Given clinical improvement in EF of 30% previously on echo, patient has not no emergent need for transfer at this time unless kidney function or heart failure worsens over the next day or 2. ? Therapeutic Lovenox. ? Cardiology considering AICD versus referral to advanced heart failure clinic in . Patient nonadherent with LifeVest. #Possible community-acquired pneumonia ? Worsening left lung opacities, though this could be worsening edema from transient cardiogenic shock. ? Started levofloxacin day 2/5. - White count remains Normal at 6.8. Hemoglobin 11.4. Repeat CBC, CMP, magnesium ordered for the morning. #CAD s/p CABG 2017, LUKE 2021 #CKD stage IV ? Continue aspirin 81 mg, clopidogrel 75 mg, atorvastatin 80 mg. ? Creatinine 2.9, BUN 46, stable. #Hypothyroidism: TSH subtherapeutic 11.8. Questionable adherence to medication. Continue home levothyroxine 88 mcg. #Type 2 diabetes ? Lantus insulin to 30 units nightly. Continue Jardiance 10 mg. ? ACHS glucose checks, LDSSI. - Morning glucose 148. Well-controlled #BPH: Continue home finasteride 5 mg. #GERD: Continue home PPI. DNR/DNI Therapeutic Lovenox diabetic diet
[2025-01-26] MEDS: HYDRALAZINE HCL 25MG TABLET 25 MG PO ×2 (15:14→20:59)
--- NOTE | 2025-01-26 16:16 | PC.NURSE ---
Milrinone drip currently infusing, per gayatri astudillo when bag is empt, stop the drip. VS stable. Heart rate elevated to 130's. Per cardiology will possibly restart beta cholo tomorrow. Lung sounds clear. Patient diuresing well, 2950 ml of urine.
[2025-01-26 16:39] LABS: POC Glucose,Bedside 160 (70-110)
--- NOTE | 2025-01-26 18:19 | PC.NURSE ---
Per Dr. Lagos, ok to change patient status from ICU to stepdown once milrinone drip is off.
[2025-01-26 20:15] LABS: POC Glucose,Bedside 238 (70-110)
[2025-01-26] MEDS: INSULIN GLARGINE 100 UNITS/ML 10ML VIAL 30 UNIT SUBCUT (21:00)
[2025-01-26] MEDS: ATORVASTATIN 40MG TABLET 40 MG PO (21:00)
[2025-01-26] MEDS: ISOSORBIDE DINITRATE 20 MG TABLET 40 MG PO (21:00)
[2025-01-26] MEDS: ENOXAPARIN 100MG/ML SYRINGE 85 MG SUBCUT (21:00)
[2025-01-27] VITALS (10 sets, daily range): BP systolic 119–148; BP diastolic 76–96; PULSE 93–132; RESP 16–24; TEMP 36.6–36.8; O2SAT 96–99; BMI 28.3
[2025-01-27] MEDS: ACETAMINOPHEN 325MG TAB 650 MG PO (00:29)
[2025-01-27] MEDS: ONDANSETRON 4MG/2ML VIAL 4 MG IV (02:27)
[2025-01-27] MEDS: LEVOTHYROXINE 88MCG (0.088MG) TAB 88 MCG PO (06:22)
[2025-01-27 06:35] LABS: Basophils % 0.6 % (0.1-2.0); Eosinophils # 0.1 Kmm3 (0.0-0.4); Eosinophils % 1.4 % (0.1-12.0); Hematocrit 37.3 % (42.0-52.0); Hemoglobin 12.4 g/dL (14.1-18.0); Lymphocytes # 1.6 K/mm3 (0.7-4.5); Lymphocytes % 24.1 % (10-50); Mean Corpuscular HGB Conc 33.2 g/dL (31.8-35.4); Mean Corpuscular Hemoglobin 28.2 pg (27.0-31.2); Mean Platelet Volume 9.6 fl (7.4-10.4); Monocytes # 0.8 K/mm3 (0.1-1.0); Monocytes % 12.6 % (1.7-9.3); Neutrophils % 60.4 % (37.0-80.0); Nucleated Red Blood Cells # 0 10^3/uL; Nucleated Red Blood Cells % 0 %; Platelet Count 241 K/mm3 (142-424); Red Blood Count 4.39 M/mm3 (4.60-6.20); Red Cell Distribution Width 15.5 % (11.5-17.5); Red Cell Distribution Width-SD 47.8 fL; White Blood Count 6.6 K/mm3 (4.8-10.8)
[2025-01-27 06:35] LABS: POC Glucose,Bedside 92 (70-110)
[2025-01-27 06:39] LABS: Albumin Level 3.8 g/dl (3.5-5.0); Chloride 101 mmol/L (98-107); Potassium 3.8 mmoL/L (3.5-5.1); Sodium 136 mmol/L (136-145)
[2025-01-27 06:42] LABS: Alanine Aminotransferase 69 U/L (12-78); Albumin/Globulin Ratio 1.1 (1.1-1.8); Alkaline Phosphatase 154 U/L (38-126); Anion Gap 11.8 mEq/L (5-15); Aspartate Amino Transferase 33 U/L (17-59); Bilirubin,Total 0.6 mg/dl (0.2-1.3); Blood Urea Nitrogen 37 mg/dl (9-20); Carbon Dioxide 27 mmol/L (22.0-30.0); Creatinine Clearance Estimated 29 mL/min (50-200); Estimated Glomerular Filt Rate 22 ml/min (>60); GFR (African American) 27 ML/MIN (>60); Globulin 3.5 g/dL (1.3-3.2); Total Protein,Serum 7.3 g/dl (6.3-8.2)
[2025-01-27 06:43] LABS: Calcium 8.9 mg/dl (8.4-10.2); Glucose 103 mg/dl (74-100); Magnesium 1.7 mg/dl (1.6-2.3)
[2025-01-27] MEDS: EMPAGLIFLOZIN 10MG TABLET 10 MG PO (08:44)
[2025-01-27] MEDS: HYDRALAZINE HCL 25MG TABLET 25 MG PO ×3 (08:44→21:31)
[2025-01-27] MEDS: ISOSORBIDE DINITRATE 20 MG TABLET 40 MG PO ×3 (08:44→21:00)
[2025-01-27] MEDS: ASPIRIN EC 81MG TABLET 81 MG PO (08:44)
[2025-01-27] MEDS: CLOPIDOGREL 75MG TAB 75 MG PO (08:44)
[2025-01-27] MEDS: SPIRONOLACTONE 25MG TABLET 25 MG PO (08:44)
[2025-01-27] MEDS: BUMETANIDE 1MG/4ML VIAL 1 MG IV ×2 (08:44→15:33)
[2025-01-27] MEDS: ARTIFICIAL TEARS SOLN 15ML BOTTLE OP (08:49)
--- NOTE | 2025-01-27 09:30 | EXP.CARD.PN ---
Subjective Subjective Date: 01/27/25 Time: 09:30 Principal diagnosis: HFrEF Interval history: 74 yo WM in bed sleeping. Diuresed over 7 liters this admission Milrinone stopped overnight HR still in the 130 bpm range Tele A. fib Exam Data for Last 24 hours Vital signs and Labs for Last 24 Hours: Temp Pulse Resp BP Pulse Ox O2 Del Method O2 Flow Rate 97.8 F 129 H 24 132/87 99 Room Air 3 01/27/25 08:00 01/27/25 08:00 01/27/25 08:00 01/27/25 08:00 01/27/25 08:00 01/27/25 09:00 01/24/25 18:40 Laboratory Results - last 24 hr 01/26/25 11:02: POC Glucose 336 H* 01/26/25 16:31: POC Glucose 160 H 01/26/25 20:07: POC Glucose 238 H 01/27/25 05:59: POC Glucose 92 01/27/25 06:13: WBC 6.6, RBC 4.39 L, Hgb 12.4 L, Hct 37.3 L, MCV 85.0, MCH 28.2, MCHC 33.2, RDW 15.5, Plt Count 241, MPV 9.6, Neut % (Auto) 60.4, Lymph % (Auto) 24.1, [place] % (Auto) 12.6 H, Eos % (Auto) 1.4, Baso % (Auto) 0.6, Neut # (Auto) 4.0, Lymph # (Auto) 1.6, [place] # (Auto) 0.8, Eos # (Auto) 0.1, Baso # (Auto) 0.0, Sodium 136, Potassium 3.8, Chloride 101, Carbon Dioxide 27, Anion Gap 11.8, BUN 37 H, Creatinine 2.80 H, Estimated Creat Clear 29, Estimated GFR 22 L, Est GFR ( Amer) 27 L, Glucose 103 H, Calcium 8.9, Magnesium 1.7, Total Bilirubin 0.6, AST 33, ALT 69, Alkaline Phosphatase 154 H, Total Protein 7.3, Albumin 3.8 D, Globulin 3.5 H, Albumin/Globulin Ratio 1.1 I & O for Last 24 hours: Intake & Output 01/24/25 01/25/25 01/26/25 01/27/25 11:59 11:59 11:59 11:59 Intake Total 595 / 595 1605.776 / 1361.003 3006 / 1090 Output Total 1340 / 1340 6020 / 6020 3175 / 3175 Balance -745 / -745 -4414.224 / -4414.224 -2084 / -2084 Weight 175 lb 191 lb 9.307 oz 191 lb 2.252 oz 191 lb 2.252 oz Constitutional Constitutional: no acute distress *Routine Respiratory Exam Respiratory: Present decreased breath sounds *Routine Cardiovascular Exam Cardiovascular: Present tachycardia and irregularly irregular Progress Note: A&P Assessment and plan (1) Acute on chronic HFrEF (heart failure with reduced ejection fraction): Status: Acute (2) Atrial fibrillation with RVR: Status: Acute (3) Ischemic cardiomyopathy: Status: Acute (4) DM type 2 (diabetes mellitus, type 2): Status: Acute (5) CKD stage 4 due to type 2 diabetes mellitus: Status: Acute Assessment and Plan Assessment and Plan for All Diagnoses:: 1. Acute on chronic HFrEF -diuresed over 7 liters so far -milrinone started 01/24/2025, stopped 01/26/2025 -EF 30%, stopped wearing LifeVest due to discomfort -BNP 15,400 -IV diuretics with Bumex 1 mg twice daily -Continue GDMT with Jardiance 10 mg daily, diuretics. No DEVI/ARB/Arni due to CKD. Stopped BB due to possible cardiogenic shock. -Will not proceed with AICD at this time since he is not a candidate for BiV due to narrow QRS. He will be referred to [facility] for evaluation. -LFT's improving with diuresis 2. Chronic atrial fibrillation now with RVR secondary to CHF -No anticoagulation due to history of recurrent hematuria -Will restart metoprolol tartrate 25 mg BID when CHF improved. Avoid IV diltiazem due to cardiomyopathy. 3. CAD with history of CABG -Most recent drug-eluting stent placed in 09/2024 -Continue aspirin and Plavix along with statin therapy -Left heart catheterization, 12/27/2024, coronary disease stable with patent BLOOD to LAD, SVG to bifurcating first diagonal and SVG to PDA. SVG to circumflex was occluded. Bilateral renals were normal. 4. CKD, stage IV -baseline creatinine around 2.2-2.4 -Cr 2.8 5. Diabetes mellitus type 2 - Per hospitalist 6. Hypothyroidism -with TSH 11.8 7. Hypertension -use hydralazine and Isordil if needed along with beta-cholo therapy 8. DNR/DNI Restart metoprolol since CHF has improved repeat TSH continue diuresis outpatient referral to heart
[2025-01-27] MEDS: METOPROLOL TARTRATE 25MG TABLET 25 MG PO ×2 (10:20→21:32)
[2025-01-27 10:31] LABS: Thyroid Stimulating Hormone 7.56 uIU/mL (0.465-4.68)
[2025-01-27 11:20] LABS: POC Glucose,Bedside 296 (70-110)
[2025-01-27] MEDS: MAGNESIUM SULFATE IN WATER 2 GM/50 ML PIGGYBACK IV (11:44)
[2025-01-27] MEDS: humaLOG 100 UNITS/ML 10ML VIAL (SSI) SUBCUT ×3 (11:44→21:30)
--- NOTE | 2025-01-27 12:01 | EXP.ACUTE.PN ---
Subjective *Date: 01/27/25 *Time: 21:11 Interval history: Patient feeling better today. -3 L in past 24 hours, -7 since admission. Continues to respond to diuresis well. Off milrinone. Brief episode of nausea after milrinone finished, doing better this morning. Tolerating p.o. intake. Stable on room air. Improving ankle edema. Medical Exam Vital signs and Labs for Last 24 Hours: Vital Signs Temp Pulse Pulse Pulse Resp BP Pulse Ox 01/27/25 11:00 01/27/25 10:00 130 H 24 140/87 98 01/27/25 09:00 01/27/25 08:15 01/27/25 08:00 130 H 01/27/25 08:00 97.8 F 129 H 24 132/87 99 01/27/25 06:33 01/27/25 06:00 93 H 16 96 01/27/25 05:00 01/27/25 04:00 132 H 01/27/25 04:00 98.2 F 130 H 19 119/76 99 01/27/25 03:00 127 H 96 01/27/25 03:00 01/27/25 02:00 130 H 22 141/84 H 98 01/27/25 01:00 01/27/25 00:00 126 H 01/27/25 00:00 97.8 F 132 H 22 148/82 H 98 01/26/25 23:00 132 H 24 147/95 H 96 01/26/25 23:00 01/26/25 22:00 132 H 22 163/94 H 98 01/26/25 21:00 01/26/25 21:00 130 H 12 121/65 97 01/26/25 20:00 132 H 01/26/25 20:00 131 H 98 01/26/25 20:00 98.2 F 133 H 25 H 155/98 H 98 01/26/25 19:00 133 H 22 162/91 H 98 01/26/25 18:40 01/26/25 18:00 130 H 18 171/98 H 96 01/26/25 17:00 133 H 18 166/93 H 96 01/26/25 16:55 01/26/25 16:00 130 H 01/26/25 16:00 01/26/25 16:00 98.3 F 132 H 23 163/86 H 98 01/26/25 15:00 01/26/25 15:00 133 H 22 150/93 H 97 01/26/25 14:00 131 H 24 105/53 L 93 L 01/26/25 13:00 01/26/25 13:00 131 H 22 164/94 H 96 O2 Del Method 01/27/25 11:00 Room Air 01/27/25 10:00 Room Air 01/27/25 09:00 Room Air 01/27/25 08:15 Room Air 01/27/25 08:00 01/27/25 08:00 Room Air 01/27/25 06:33 Room Air 01/27/25 06:00 Room Air 01/27/25 05:00 Room Air 01/27/25 04:00 01/27/25 04:00 Room Air 01/27/25 03:00 Room Air 01/27/25 03:00 Room Air 01/27/25 02:00 Room Air 01/27/25 01:00 Room Air 01/27/25 00:00 01/27/25 00:00 Room Air 01/26/25 23:00 Room Air 01/26/25 23:00 Room Air 01/26/25 22:00 Room Air 01/26/25 21:00 Room Air 01/26/25 21:00 Room Air 01/26/25 20:00 01/26/25 20:00 Room Air 01/26/25 20:00 Room Air 01/26/25 19:00 Room Air 01/26/25 18:40 Room Air 01/26/25 18:00 Room Air 01/26/25 17:00 Room Air 01/26/25 16:55 Room Air 01/26/25 16:00 01/26/25 16:00 Room Air 01/26/25 16:00 Room Air 01/26/25 15:00 Room Air 01/26/25 15:00 Room Air 01/26/25 14:00 Room Air 01/26/25 13:00 Room Air 01/26/25 13:00 Room Air Intake and Output 01/26/25 01/27/25 01/27/25 23:59 07:59 15:59 Intake Total 430 / 1787 300 / 300 Output Total 1150 / 6025 450 / 1115 665 / 1115 Balance -720 / -4238 -450 / -815 -365 / -815 Intake: Intake, Oral Amount 380 / 1700 300 / 300 Intake, Total IV Amount 50 / 87 Milrinone Lactate 20 mg In 0.9 50 / 87 % Sodium Chloride 80 ml @ 0.125 MCG/KG/MIN 3.248 mls/hr IV . Q24H [facility] Rx#:[id number] Output: Output, Urine Amount 1150 / 6025 450 / 1115 665 / 1115 Other: Number of Unmeasured Voids 0 0 Weight 86.7 kg Patient Weight 01/27/25 23:59 Weight 86.7 kg Laboratory Results - last 24 hr 01/26/25 16:31: POC Glucose 160 H 01/26/25 20:07: POC Glucose 238 H 01/27/25 05:59: POC Glucose 92 01/27/25 06:13: WBC 6.6, RBC 4.39 L, Hgb 12.4 L, Hct 37.3 L, MCV 85.0, MCH 28.2, MCHC 33.2, RDW 15.5, Plt Count 241, MPV 9.6, Neut % (Auto) 60.4, Lymph % (Auto) 24.1, [place] % (Auto) 12.6 H, Eos % (Auto) 1.4, Baso % (Auto) 0.6, Neut # (Auto) 4.0, Lymph # (Auto) 1.6, [place] # (Auto) 0.8, Eos # (Auto) 0.1, Baso # (Auto) 0.0, Sodium 136, Potassium 3.8, Chloride 101, Carbon Dioxide 27, Anion Gap 11.8, BUN 37 H, Creatinine 2.80 H, Estimated Creat Clear 29, Estimated GFR 22 L, Est GFR ( Amer) 27 L, Glucose 103 H, Calcium 8.9, Magnesium 1.7, Total Bilirubin 0.6, AST 33, ALT 69, Alkaline Phosphatase 154 H, Total Protein 7.3, Albumin 3.8 D, Globulin 3.5 H, Albumin/Globulin Ratio 1.1, TSH 7.56 H D 01/27/25 11:13: POC Glucose 296 H I & O for Labs for Last 24 Hours: Intake & Output 01/24/25 01/25/25 01/26/25 01/27/25 23:59 23:59 23:59 23:59 Intake Total 260 / 260 943.776 / 679.418 8344 / 1787 300 / 300 Output Total 170 / 220 3615 / 4265 6025 / 6025 1115 / 1115 Balance 90 / 40 -2671.224 / -3321.224 -4238 / -4238 -815 / -815 Weight 86.6 kg 86.9 kg 86.7 kg 86.7 kg Constitutional: Present no acute distress, average body habitus, chronically ill appearing and cooperative Head: Present atraumatic and normocephalic ENT: Present normal exam Respiratory: Present normal respiratory effort; Absent rhonchi, wheezes or crackles Cardiac: Present Tachycardia GI: Present soft, distention and normal bowel sounds; Absent tenderness Extremities: Present normal inspection, full ROM and edema (2+ to mid ferro) Skin: Present intact; Absent erythema Neuro: Present Grossly Intact, alert, awake, oriented x 3 and moves all extremities Assessment and Plan *Assessment and plan (1) Acute on chronic HFrEF (heart failure with reduced ejection fraction): Status: Acute Category: Medical Code(s): I50.23 - Acute on chronic systolic (congestive) heart failure (2) Atrial fibrillation with RVR: Status: Acute Category: Medical Code(s): I48.91 - Unspecified atrial fibrillation (3) Ischemic cardiomyopathy: Status: Acute Category: Medical Code(s): I25.5 - Ischemic cardiomyopathy (4) Hypothyroidism (acquired): Status: Acute Category: Medical Code(s): E03.9 - Hypothyroidism, unspecified (5) DM type 2 (diabetes mellitus, type 2): Status: Acute Qualifiers: Diabetes mellitus mcc insulin use: without mcc use Diabetes mellitus complication status: with other specified complication Qualified Code(s): E11.69 - Type 2 diabetes mellitus with other specified complication Category: Medical Code(s): E11.9 - Type 2 diabetes mellitus without complications (6) Pulmonary HTN: Status: Acute Category: Medical Code(s): I27.20 - Pulmonary hypertension, unspecified (7) CKD stage 4 due to type 2 diabetes mellitus: Status: Acute Category: Medical Code(s): E11.22 - Type 2 diabetes mellitus with diabetic chronic kidney disease; N18.4 - Chronic kidney disease, stage 4 (severe) (8) Coronary artery disease: Status: Acute Qualifiers: Coronary Disease-Associated Artery/Lesion type: bypass graft [place] vs. transplanted heart: [place] heart Associated angina: with other forms of angina Qualified Code(s): I25.708 - Atherosclerosis of coronary artery bypass graft(s), unspecified, with other forms of angina pectoris Category: Medical Code(s): I25.10 - Atherosclerotic heart disease of [place] coronary artery without angina pectoris (9) Presence of stent in coronary artery: Status: Acute Category: Surgical Code(s): Z95.5 - Presence of coronary angioplasty implant and graft (10) Hx of CABG: Status: Acute Category: Surgical Code(s): Z95.1 - Presence of aortocoronary bypass graft Plan Zackary Carrasco is a 74-year-old male with a medical history significant for A-fib, HFrEF, CAD/CABG, NSTEMI, CKD stage IV, hypertension, type 2 diabetes, BPH, GERD who presents with progressive shortness of breath, leg swelling. Patient was recently admitted to our facility last month for similar symptoms. He states he has been adherent to his medications. In the ED, patient's heart rate 120s/130s with A-fib. Patient was initiated on amiodarone drip. Workup also consistent with HFrEF exacerbation, BNP 15,400 with gross signs of volume overload. Case discussed with ED provider and decision was made to admit patient for A-fib RVR, HFrEF exacerbation. Responding to diuretics and milrinone. Continue current course. Cardiology assisting with care. Continues to require inpatient admission. Problems addressed as follows: #Acute on chronic HFrEF #A-fib RVR ? Presented with progressive shortness of breath, volume overload. BNP 15,400. Patient states he has been adherent to his medications, though he lives alone and family questions this. ? Initially started amiodarone drip for A-fib RVR, but transition off as patient has chronic A-fib. Went into transient cardiogenic shock with IV Lopressor 5, reversed with glucagon. RVR is likely, but still in the setting of decompensation. ? Continuing IV Bumex 1 mg twice daily, spironolactone 25 mg. Net -7.5 L since admission. Continues to respond well -Discontinued milrinone; resume metoprolol today cardiology recommendation; monitor for tolerance overnight. Anticipate discharge [place] ? Continue home Jardiance 10 mg. ? Therapeutic Lovenox. ? Cardiology considering AICD versus referral to advanced heart failure clinic in . Patient nonadherent with LifeVest. #Possible community-acquired pneumonia ?Stable on room air ? levofloxacin on day 3/5. - White count remains Normal at 6.6, hemoglobin 12.4. Repeat CBC, CMP, magnesium ordered for the morning. #CAD s/p CABG 2017, [place] 2021 #CKD stage IV ? Continue aspirin 81 mg, clopidogrel 75 mg, atorvastatin 80 mg. ? Kidney function stable BUN 37, creatinine 2.8. #Hypothyroidism: TSH subtherapeutic 11.8. Questionable adherence to medication. Continue home levothyroxine 88 mcg. #Type 2 diabetes ? Lantus insulin 30 units nightly. Continue Jardiance 10 mg. ? ACHS glucose checks, LDSSI. - Morning glucose 103. Well-controlled #BPH: Continue home finasteride 5 mg. #GERD: Continue home PPI. DNR/DNI Therapeutic Lovenox diabetic diet
--- NOTE | 2025-01-27 15:08 | PC.NURSE ---
patient complaining of chest pressure/tightness. bp 133/91 o2 99, hr 127. ekg ordered.
--- NOTE | 2025-01-27 15:10 | ECG_ITS ---
APPROVED REPORT Exam: Resting ECG HR:127 bpm ECG Measurements Heart Rate 127 AXES QRSd 98 QRS -33 QT 311 T 147 QTc 386 Conclusion ATRIAL FLUTTER/TACHYCARDIA WITH RAPID VENTRICULAR RESPONSE POSSIBLE ANTERIOR MYOCARDIAL INFARCTION , PROBABLY OLD [30 ms Q WAVE IN V3/V4, OR R < 0.2 mV IN V4] INFERIOR MYOCARDIAL INFARCTION , PROBABLY OLD [40+ ms Q WAVE AND/OR ST/T ABNORMALITY IN II/aVF] MODERATE T-WAVE ABNORMALITY, CONSIDER LATERAL ISCHEMIA [-0.1+ mV T-WAVE IN I/aVL/V5/V6] ABNORMAL ECG UNCONFIRMED REPORT Electronically signed by : Roc Fajardo MD 01/31/2025 08:29:54
[2025-01-27] MEDS: levoFLOXacin 750 MG TABLET PO (15:33)
--- NOTE | 2025-01-27 15:37 | PC.NURSE ---
VS stable, patient remained on room air. lung sounds clear, a flutter on monitor.
[2025-01-27 16:46] LABS: POC Glucose,Bedside 158 (70-110)
[2025-01-27] MEDS: INSULIN GLARGINE 100 UNITS/ML 10ML VIAL 30 UNIT SUBCUT (21:32)
[2025-01-27] MEDS: ATORVASTATIN 40MG TABLET 40 MG PO (21:32)
[2025-01-27] MEDS: ENOXAPARIN 100MG/ML SYRINGE 85 MG SUBCUT (21:32)
[2025-01-27 21:58] LABS: POC Glucose,Bedside 254 (70-110)
[2025-01-28] VITALS: BP 115/84; PULSE 112; PULSE 120; RESP 18; TEMP 36.6; O2SAT 97
[2025-01-28] MEDS: ONDANSETRON 4MG/2ML VIAL 4 MG IV ×2 (03:33→10:07)
[2025-01-28 04:00] VITALS: BP 108/61; PULSE 115; PULSE 130; RESP 18; TEMP 36.6; O2SAT 98; BMI 26.0
--- NOTE | 2025-01-28 05:22 | PC.NURSE ---
v/s, ox4. blood glucose monitored. No acute events to report. Plan of care ongoing.
[2025-01-28 06:25] LABS: Basophils % 0.4 % (0.1-2.0); Eosinophils # 0.1 Kmm3 (0.0-0.4); Hematocrit 38.3 % (42.0-52.0); Hemoglobin 12.5 g/dL (14.1-18.0); Lymphocytes # 1.8 K/mm3 (0.7-4.5); Lymphocytes % 23.6 % (10-50); Mean Corpuscular HGB Conc 32.6 g/dL (31.8-35.4); Mean Corpuscular Volume 85.7 fl (80-94); Mean Platelet Volume 9.5 fl (7.4-10.4); Monocytes # 0.9 K/mm3 (0.1-1.0); Monocytes % 11.2 % (1.7-9.3); Neutrophils # 4.9 K/mm3 (1.8-7.8); Neutrophils % 63.4 % (37.0-80.0); Nucleated Red Blood Cells # 0 10^3/uL; Nucleated Red Blood Cells % 0 %; Platelet Count 276 K/mm3 (142-424); Red Blood Count 4.47 M/mm3 (4.60-6.20); Red Cell Distribution Width 15.5 % (11.5-17.5); Red Cell Distribution Width-SD 48.3 fL; White Blood Count 7.8 K/mm3 (4.8-10.8)
[2025-01-28 06:31] LABS: Albumin Level 3.9 g/dl (3.5-5.0); Chloride 96 mmol/L (98-107); Sodium 134 mmol/L (136-145)
[2025-01-28 06:31] LABS: POC Glucose,Bedside 86 (70-110)
[2025-01-28 06:32] LABS: Potassium 3.8 mmoL/L (3.5-5.1)
[2025-01-28 06:34] LABS: Alanine Aminotransferase 58 U/L (12-78); Alkaline Phosphatase 142 U/L (38-126); Anion Gap 13.8 mEq/L (5-15); Aspartate Amino Transferase 32 U/L (17-59); Bilirubin,Total 0.6 mg/dl (0.2-1.3); Blood Urea Nitrogen 42 mg/dl (9-20); Calcium 9.2 mg/dl (8.4-10.2); Carbon Dioxide 28 mmol/L (22.0-30.0); Creatinine Clearance Estimated 25 mL/min (50-200); Estimated Glomerular Filt Rate 21 ml/min (>60); GFR (African American) 25 ML/MIN (>60); Globulin 3.8 g/dL (1.3-3.2); Glucose 84 mg/dl (74-100); Total Protein,Serum 7.7 g/dl (6.3-8.2)
--- NOTE | 2025-01-28 07:21 | P.DS_ITS ---
General Admission date:: 01/24/25 Discharge date: 01/28/25 HPI HPI HPI: Zackary Carrasco is a 74-year-old male with a medical history significant for A-fib, HFrEF, CAD/CABG, NSTEMI, CKD stage IV, hypertension, type 2 diabetes, BPH, GERD who presents with progressive shortness of breath, leg swelling. Patient was recently admitted to our facility last month for similar symptoms. He states he has been adherent to his medications. In the ED, patient's heart rate 120s/130s with A-fib. Patient was initiated on amiodarone drip. Workup also consistent with HFrEF exacerbation, BNP 15,400 with gross signs of volume overload. Case discussed with ED provider and decision was made to admit patient for A-fib RVR, HFrEF exacerbation. Exam Data for Last 24 hours Vital signs and Labs for Last 24 Hours: Temp Pulse Resp BP Pulse Ox O2 Del Method O2 Flow Rate 97.8 F 115 H 18 108/61 L 98 Room Air 3 01/28/25 04:00 01/28/25 04:00 01/28/25 04:00 01/28/25 04:00 01/28/25 04:00 01/28/25 06:09 01/24/25 18:40 Laboratory Results - last 24 hr 01/27/25 06:13: TSH 7.56 H D 01/27/25 11:13: POC Glucose 296 H 01/27/25 16:35: POC Glucose 158 H 01/27/25 20:58: POC Glucose 254 H 01/28/25 06:08: POC Glucose 86 01/28/25 06:11: WBC 7.8, RBC 4.47 L, Hgb 12.5 L, Hct 38.3 L, MCV 85.7, MCH 28.0, MCHC 32.6, RDW 15.5, Plt Count 276, MPV 9.5, Neut % (Auto) 63.4, Lymph % (Auto) 23.6, [place] % (Auto) 11.2 H, Eos % (Auto) 1.0, Baso % (Auto) 0.4, Neut # (Auto) 4.9, Lymph # (Auto) 1.8, [place] # (Auto) 0.9, Eos # (Auto) 0.1, Baso # (Auto) 0.0, Sodium 134 L, Potassium 3.8, Chloride 96 L, Carbon Dioxide 28, Anion Gap 13.8, BUN 42 H, Creatinine 3.00 H, Estimated Creat Clear 25, Estimated GFR 21 L, Est GFR ( Amer) 25 L, Glucose 84, Calcium 9.2, Magnesium 2.0 D, Total Bilirubin 0.6, AST 32, ALT 58, Alkaline Phosphatase 142 H, Total Protein 7.7, Albumin 3.9, Globulin 3.8 H, Albumin/Globulin Ratio 1.0 L I & O for Last 24 hours: Intake & Output 01/25/25 01/26/25 01/27/25 01/28/25 23:59 23:59 23:59 23:59 Intake Total 943.776 / 508.660 6376 / 1787 900 / 1140 240 / 240 Output Total 3615 / 4265 6025 / 6025 2670 / 3170 950 / 950 Balance -2671.224 / -3321.224 -4238 / -4238 -1770 / -2030 -710 / -710 Weight 86.9 kg 86.7 kg 86.7 kg 79.7 kg Results Data Completed and Pending Labs on day of discharge: Labs from last 24 hours 01/28/25 01/28/25 01/27/25 06:11 06:08 20:58 WBC 7.8 RBC 4.47 L Hgb 12.5 L Hct 38.3 L MCV 85.7 MCH 28.0 MCHC 32.6 RDW 15.5 Plt Count 276 MPV 9.5 Neut % (Auto) 63.4 Lymph % (Auto) 23.6 [place] % (Auto) 11.2 H Eos % (Auto) 1.0 Baso % (Auto) 0.4 Neut # (Auto) 4.9 Lymph # (Auto) 1.8 [place] # (Auto) 0.9 Eos # (Auto) 0.1 Baso # (Auto) 0.0 Sodium 134 L Potassium 3.8 Chloride 96 L Carbon Dioxide 28 Anion Gap 13.8 BUN 42 H Creatinine 3.00 H Estimated Creat Clear 25 Estimated GFR 21 L Est GFR ( Amer) 25 L Glucose 84 POC Glucose 86 254 H Calcium 9.2 Magnesium 2.0 D Total Bilirubin 0.6 AST 32 ALT 58 Alkaline Phosphatase 142 H Total Protein 7.7 Albumin 3.9 Globulin 3.8 H Albumin/Globulin Ratio 1.0 L TSH 01/27/25 01/27/25 01/27/25 16:35 11:13 06:13 WBC RBC Hgb Hct MCV MCH MCHC RDW Plt Count MPV Neut % (Auto) Lymph % (Auto) [place] % (Auto) Eos % (Auto) Baso % (Auto) Neut # (Auto) Lymph # (Auto) [place] # (Auto) Eos # (Auto) Baso # (Auto) Sodium Potassium Chloride Carbon Dioxide Anion Gap BUN Creatinine Estimated Creat Clear Estimated GFR Est GFR ( Amer) Glucose POC Glucose 158 H 296 H Calcium Magnesium Total Bilirubin AST ALT Alkaline Phosphatase Total Protein Albumin Globulin Albumin/Globulin Ratio TSH 7.56 H D DS: Diagnosis Discharge Diagnosis (1) Acute on chronic HFrEF (heart failure with reduced ejection fraction): Status: Acute Code(s): I50.23 - Acute on chronic systolic (congestive) heart failure (2) Atrial fibrillation with RVR: Status: Acute Code(s): I48.91 - Unspecified atrial fibrillation (3) Ischemic cardiomyopathy: Status: Acute Code(s): I25.5 - Ischemic cardiomyopathy (4) Hypothyroidism (acquired): Status: Acute Code(s): E03.9 - Hypothyroidism, unspecified (5) DM type 2 (diabetes mellitus, type 2): Status: Acute Code(s): E11.9 - Type 2 diabetes mellitus without complications Qualifiers: Diabetes mellitus penitent[place] insulin use: without middle or intermediate school principal use Diabetes mellitus complication status: with other specified complication Qualified Code(s): E11.69 - Type 2 diabetes mellitus with other specified complication (6) Pulmonary HTN: Status: Acute Code(s): I27.20 - Pulmonary hypertension, unspecified (7) CKD stage 4 due to type 2 diabetes mellitus: Status: Acute Code(s): E11.22 - Type 2 diabetes mellitus with diabetic chronic kidney disease; N18.4 - Chronic kidney disease, stage 4 (severe) (8) Coronary artery disease: Status: Acute Code(s): I25.10 - Atherosclerotic heart disease of [place] coronary artery without angina pectoris Qualifiers: Coronary Disease-Associated Artery/Lesion type: bypass graft [place] vs. transplanted heart: [place] heart Associated angina: with other forms of angina Qualified Code(s): I25.708 - Atherosclerosis of coronary artery bypass graft(s), unspecified, with other forms of angina pectoris (9) Presence of stent in coronary artery: Status: Acute Code(s): Z95.5 - Presence of coronary angioplasty implant and graft (10) Hx of CABG: Status: Acute Code(s): Z95.1 - Presence of aortocoronary bypass graft Meds Home Medications and Allergies Home Medications ?Medication ?Instructions ?Recorded ?Confirmed ?Type aspirin 81 mg tablet,delayed 81 mg PO DAILY #90 tabs 12/08/24 01/24/25 Rx release (Adult Low Dose Aspirin) cholecalciferol (vitamin D3) 1,250 1,250 mcg PO WEEKLY 90 days #13 12/08/24 01/24/25 Rx mcg (50,000 unit) oral wafer wafers ferrous sulfate 325 mg (65 mg 325 mg PO DAILY #90 tabs 12/08/24 01/24/25 Rx iron) tablet insulin lispro 100 unit/mL 1 sliding scale dose SQ 12/08/24 01/24/25 Rx subcutaneous pen USEASDIRECTD #15 mL empagliflozin 10 mg tablet 10 mg PO DAILY #90 tabs 12/14/24 01/24/25 Rx (Jardiance) levothyroxine 88 mcg tablet 88 mcg PO DAILY 12/22/24 01/24/25 History melatonin 3 mg capsule 3 mg PO HS PRN Sleep 12/22/24 01/24/25 History atorvastatin 40 mg tablet 40 mg PO HS 12/23/24 01/24/25 History clopidogrel 75 mg tablet 75 mg PO DAILY 12/23/24 01/24/25 History omeprazole 40 mg capsule,delayed 40 mg PO DAILY 12/23/24 01/24/25 History release hydralazine 25 mg tablet 25 mg PO TID 30 days #90 tabs 12/28/24 01/24/25 Rx bumetanide 0.5 mg tablet 0.5 mg PO DAILY 01/24/25 01/24/25 History isosorbide dinitrate 20 mg tablet 20 mg PO TID 01/24/25 01/24/25 History metoprolol succinate 25 mg 25 mg PO DAILY 01/24/25 01/24/25 History tablet,extended release 24 hr New Prescriptions to Start Prescriptions: Allergies Allergy/AdvReac Type Severity Reaction Status Date / Time amoxicillin Allergy Rash Verified 12/31/24 11:39 Penicillins Allergy Rash Verified 12/31/24 11:39 Discharge Plan Disposition Patient Disposition: Home, Self-Care Condition: Fair Follow up Plan Follow up with: Marielos Amaral APRN [Primary Care Provider] - Enter time for follow up Darwin Lees MD [Staff Physician] - Enter time for follow up Prescriptions/Medication Reconciliation: Continued aspirin [Adult Low Dose Aspirin] 81 mg tablet,delayed release (DR/EC) 81 mg PO DAILY Qty: 90 1RF cholecalciferol (vitamin D3) 1,250 mcg (50,000 unit) wafer 1,250 mcg PO WEEKLY 90 Days Qty: 13 2RF ferrous sulfate 325 mg (65 mg iron) tablet 325 mg PO DAILY Qty: 90 0RF insulin lispro 100 unit/mL insulin pen 1 sliding scale dose SQ USEASDIRECTD Qty: 15 3RF levothyroxine 88 mcg tablet 88 mcg PO DAILY melatonin 3 mg capsule 3 mg PO HS PRN (Reason: Sleep) Jardiance 10 mg tablet 10 mg PO DAILY Qty: 90 2RF clopidogrel 75 mg tablet 75 mg PO DAILY atorvastatin 40 mg tablet 40 mg PO HS omeprazole 40 mg capsule,delayed release(DR/EC) 40 mg PO DAILY hydralazine 25 mg Tablet 25 mg PO TID 30 Days Qty: 90 0RF isosorbide dinitrate 20 mg tablet 20 mg PO TID No Action bumetanide 0.5 mg tablet 0.5 mg PO DAILY metoprolol succinate 25 mg tablet extended release 24 hr 25 mg PO DAILY Patient Discharge Instructions Patient Instructions: DI for Atrial Flutter, Stop Light Heart Failure Print Language: [place] Providers Primary Care Provider: Marielos Amaral Admit Provider: Joel Corona Attending Provider: Joel Corona
[2025-01-28 08:00] VITALS: BP 105/56; PULSE 125; RESP 16; TEMP 36.1; O2SAT 98; O2SAT 99
--- NOTE | 2025-01-28 08:02 | EXP.PHA.PN ---
Subjective *Date: 01/28/25 *Time: 08:02 Medical Exam Vital signs and Labs for Last 24 Hours: Vital Signs Temp Pulse Pulse Pulse Resp BP Pulse Ox 01/28/25 06:09 01/28/25 05:00 01/28/25 04:00 97.8 F 115 H 18 108/61 L 98 01/28/25 04:00 130 H 01/28/25 02:13 01/28/25 01:00 01/28/25 00:00 120 H 01/28/25 00:00 97.8 F 112 H 18 115/84 97 01/27/25 23:00 01/27/25 21:00 01/27/25 20:00 01/27/25 20:00 120 H 01/27/25 20:00 97.8 F 102 H 16 126/83 99 01/27/25 17:27 01/27/25 17:00 01/27/25 16:00 130 H 01/27/25 16:00 98.2 F 126 H 24 131/91 H 99 01/27/25 15:00 01/27/25 13:07 01/27/25 12:00 130 H 01/27/25 12:00 98.3 F 126 H 21 143/96 H 99 01/27/25 11:00 01/27/25 10:00 130 H 24 140/87 98 01/27/25 09:00 01/27/25 08:15 O2 Del Method 01/28/25 06:09 Room Air 01/28/25 05:00 Room Air 01/28/25 04:00 Room Air 01/28/25 04:00 01/28/25 02:13 Room Air 01/28/25 01:00 Room Air 01/28/25 00:00 01/28/25 00:00 Room Air 01/27/25 23:00 Room Air 01/27/25 21:00 Room Air 01/27/25 20:00 Room Air 01/27/25 20:00 01/27/25 20:00 Room Air 01/27/25 17:27 Room Air 01/27/25 17:00 Room Air 01/27/25 16:00 01/27/25 16:00 Room Air 01/27/25 15:00 Room Air 01/27/25 13:07 Room Air 01/27/25 12:00 01/27/25 12:00 Room Air 01/27/25 11:00 Room Air 01/27/25 10:00 Room Air 01/27/25 09:00 Room Air 01/27/25 08:15 Room Air Intake and Output 01/27/25 01/28/25 01/28/25 23:59 07:59 15:59 Intake Total 360 / 1140 240 / 240 Output Total 750 / 3170 950 / 950 Balance -390 / -2030 -710 / -710 Intake: Intake, Oral Amount 360 / 1140 240 / 240 Output: Output, Urine Amount 750 / 3170 950 / 950 Other: Weight 79.7 kg Patient Weight 01/28/25 23:59 Weight 79.7 kg Laboratory Results - last 24 hr 01/27/25 06:13: TSH 7.56 H D 01/27/25 11:13: POC Glucose 296 H 01/27/25 16:35: POC Glucose 158 H 01/27/25 20:58: POC Glucose 254 H 01/28/25 06:08: POC Glucose 86 01/28/25 06:11: WBC 7.8, RBC 4.47 L, Hgb 12.5 L, Hct 38.3 L, MCV 85.7, MCH 28.0, MCHC 32.6, RDW 15.5, Plt Count 276, MPV 9.5, Neut % (Auto) 63.4, Lymph % (Auto) 23.6, [place] % (Auto) 11.2 H, Eos % (Auto) 1.0, Baso % (Auto) 0.4, Neut # (Auto) 4.9, Lymph # (Auto) 1.8, [place] # (Auto) 0.9, Eos # (Auto) 0.1, Baso # (Auto) 0.0, Sodium 134 L, Potassium 3.8, Chloride 96 L, Carbon Dioxide 28, Anion Gap 13.8, BUN 42 H, Creatinine 3.00 H, Estimated Creat Clear 25, Estimated GFR 21 L, Est GFR ( Amer) 25 L, Glucose 84, Calcium 9.2, Magnesium 2.0 D, Total Bilirubin 0.6, AST 32, ALT 58, Alkaline Phosphatase 142 H, Total Protein 7.7, Albumin 3.9, Globulin 3.8 H, Albumin/Globulin Ratio 1.0 L I & O for Labs for Last 24 Hours: Intake & Output 01/25/25 01/26/25 01/27/25 01/28/25 23:59 23:59 23:59 23:59 Intake Total 943.776 / 633.409 0323 / 1787 900 / 1140 240 / 240 Output Total 3615 / 4265 6025 / 6025 2670 / 3170 950 / 950 Balance -2671.224 / -3321.224 -4238 / -4238 -177 / / -710 Weight 86.9 kg 86.7 kg 86.7 kg 79.7 kg The patient's infection will respond to the chosen ABx?: Yes Is the patient receiving the right drug, dose, and route?: Yes Could a more targeted ABx be ordered?: No
--- NOTE | 2025-01-28 08:05 | P.PN_ITS ---
Subjective Subjective Date: 01/28/25 Time: 08:05 Principal diagnosis: HFrEF, CKD Interval history: 74 yo WM in bed in NAD. Some recurrent nausea in the last 2 days. Treated with Phenergan. No vomiting or diarrhea. Breathing has continued to improve with diuresing over 9 L this day. Heart rate continues to be tachycardic in the 110-130 range despite restarting beta-cholo therapy yesterday. Telemetry shows atrial fibrillation. Exam Data for Last 24 hours Vital signs and Labs for Last 24 Hours: Temp Pulse Resp BP Pulse Ox O2 Del Method O2 Flow Rate 97.8 F 115 H 18 108/61 L 98 Room Air 3 01/28/25 04:00 01/28/25 04:00 01/28/25 04:00 01/28/25 04:00 01/28/25 04:00 01/28/25 06:09 01/24/25 18:40 Laboratory Results - last 24 hr 01/27/25 06:13: TSH 7.56 H D 01/27/25 11:13: POC Glucose 296 H 01/27/25 16:35: POC Glucose 158 H 01/27/25 20:58: POC Glucose 254 H 01/28/25 06:08: POC Glucose 86 01/28/25 06:11: WBC 7.8, RBC 4.47 L, Hgb 12.5 L, Hct 38.3 L, MCV 85.7, MCH 28.0, MCHC 32.6, RDW 15.5, Plt Count 276, MPV 9.5, Neut % (Auto) 63.4, Lymph % (Auto) 23.6, [place] % (Auto) 11.2 H, Eos % (Auto) 1.0, Baso % (Auto) 0.4, Neut # (Auto) 4.9, Lymph # (Auto) 1.8, [place] # (Auto) 0.9, Eos # (Auto) 0.1, Baso # (Auto) 0.0, Sodium 134 L, Potassium 3.8, Chloride 96 L, Carbon Dioxide 28, Anion Gap 13.8, BUN 42 H, Creatinine 3.00 H, Estimated Creat Clear 25, Estimated GFR 21 L, Est GFR ( Amer) 25 L, Glucose 84, Calcium 9.2, Magnesium 2.0 D, Total Bilirubin 0.6, AST 32, ALT 58, Alkaline Phosphatase 142 H, Total Protein 7.7, Albumin 3.9, Globulin 3.8 H, Albumin/Globulin Ratio 1.0 L I & O for Last 24 hours: Intake & Output 01/25/25 01/26/25 01/27/25 01/28/25 11:59 11:59 11:59 11:59 Intake Total 595 / 595 1605.776 / 7534.012 2369 / 1090 840 / 840 Output Total 1340 / 1340 6020 / 6020 3565 / 3745 2505 / 2505 Balance -745 / -745 -4414.224 / -4414.224 -2475 / -2655 -1665 / -1665 Weight 191 lb 9.307 oz 191 lb 2.252 oz 191 lb 2.252 oz 175 lb 11.335 oz Constitutional Constitutional: no acute distress *Routine Respiratory Exam Respiratory: Present CTA bilaterally *Routine Cardiovascular Exam Cardiovascular: Present tachycardia and irregularly irregular *Routine Extremities Exam Extremities: Present edema Comments: Trace edema today which is significantly improved since admission Progress Note: A&P Assessment and plan (1) Acute on chronic HFrEF (heart failure with reduced ejection fraction): Status: Acute (2) Atrial fibrillation with RVR: Status: Acute (3) Ischemic cardiomyopathy: Status: Acute (4) Hypothyroidism (acquired): Status: Acute (5) DM type 2 (diabetes mellitus, type 2): Status: Acute (6) Pulmonary HTN: Status: Acute (7) CKD stage 4 due to type 2 diabetes mellitus: Status: Acute (8) Coronary artery disease: Status: Acute (9) Presence of stent in coronary artery: Status: Acute (10) Hx of CABG: Status: Acute Assessment and Plan Assessment and Plan for All Diagnoses:: 1. Acute on chronic HFrEF -diuresed over 9 liters so far -milrinone started 01/24/2025, stopped 01/26/2025 -EF 30%, stopped wearing LifeVest due to discomfort -BNP 15,400 on admission - Will stop IV Bumex today and switch to oral diuretics due to increasing creatinine to 3.0 today -Continue GDMT with Jardiance 10 mg daily, diuretics. No DEVI/ARB/Arni due to CKD. Stopped BB due to possible cardiogenic shock. -Will not proceed with AICD at this time since he is not a candidate for BiV due to narrow QRS. He will be referred to [facility] for evaluation for possible AV node ablation with implantation of GEOSPATIAL IMAGERY INTELLIGENCE ANALYST device. -LFT's are returned to normal with diuresis 2. Chronic atrial fibrillation now with RVR secondary to CHF -No anticoagulation due to history of recurrent hematuria - Improved rate on restarting metoprolol 3. CAD with history of CABG -Most recent drug-eluting stent placed in 09/2024 -Continue aspirin and Plavix along with statin therapy -Left heart catheterization, 12/27/2024, coronary disease stable with patent BLOOD to LAD, SVG to bifurcating first diagonal and SVG to PDA. SVG to circumflex was occluded. Bilateral renals were normal. 4. CKD, stage IV -baseline creatinine around 2.2-2.4 -Cr 3.0 today 5. Diabetes mellitus type 2 - Per hospitalist 6. Hypothyroidism -with TSH 11.8 on admission with recheck this admission 7.5 7. Hypertension - On metoprolol, spironolactone, hydralazine and Isordil 8. DNR/DNI Switch IV diuretics to oral and hold today due to elevated creatinine Outpatient referral to [facility] Stable from Cardiac standpoint for discharge home. Home meds: Aspirin 81 mg daily Plavix 75 mg daily Atorvastatin 40 mg daily Jardiance 10 mg daily Hydralazine 25 mg 3 times daily Isordil 20 mg 3 times daily Metoprolol succinate 25 mg twice daily Spironolactone 25 mg daily Bumex 1 mg daily (higher dose than previous) Follow-up in our office next week. BMP and BNP on day of visit
[2025-01-28] MEDS: ASPIRIN EC 81MG TABLET 81 MG PO (08:14)
[2025-01-28] MEDS: METOPROLOL TARTRATE 25MG TABLET 25 MG PO ×2 (08:15→20:34)
[2025-01-28] MEDS: EMPAGLIFLOZIN 10MG TABLET 10 MG PO (08:15)
[2025-01-28] MEDS: ISOSORBIDE DINITRATE 20 MG TABLET 40 MG PO (08:15)
[2025-01-28] MEDS: SPIRONOLACTONE 25MG TABLET 25 MG PO (08:16)
[2025-01-28] MEDS: CLOPIDOGREL 75MG TAB 75 MG PO (08:16)
[2025-01-28] MEDS: LEVOTHYROXINE 88MCG (0.088MG) TAB 88 MCG PO (08:16)
[2025-01-28] MEDS: ISOSORBIDE DINITRATE 20 MG TABLET PO ×3 (08:17→20:34)
[2025-01-28 08:40] LABS: NT Pro Brain Natriuretic Pep. 14300 pg/mL (0-125)
[2025-01-28 10:19] LABS: POC Glucose,Bedside 232 (70-110)
[2025-01-28] MEDS: humaLOG 100 UNITS/ML 10ML VIAL (SSI) SUBCUT ×2 (10:19→20:35)
[2025-01-28 12:00] VITALS: BP 117/86; PULSE 124; RESP 16; TEMP 36.4; O2SAT 97
[2025-01-28] MEDS: PANTOPRAZOLE 40MG VIAL 40 MG IV ×2 (12:11→20:34)
--- NOTE | 2025-01-28 13:57 | HMH.PTEV ---
Physical Therapy Evaluation Rehab PT IP Evaluation Start: 01/28/25 12:36 Freq: ONCE Status: Active Protocol: Document 01/28/25 13:15 KARIS (Rec: 01/28/25 13:57 PHOCLARA [id number]) Subjective/History History History Zackary Carrasco is a 74-year-old male with a medical history significant for A-fib, HFrEF, CAD/CABG, NSTEMI, CKD stage IV , hypertension, type 2 diabetes, BPH, GERD who presents with progressive shortness of breath, leg swelling. Workup also consistent with HFrEF exacerbation, BNP 15,400 with gross signs of volume overload . Pt currently lives at home with his son who is gone much of the day. He uses a rollator walker to ambulate and has 4- 5 steps to enter his house. Subjective Subjective Pt presents resting supine in bed. He is alert and oriented and willing to participate in therapy this pm. Pt reports that he had a stroke and has some residual R sided weakness . Pt returned to sitting at EOB with call light in reach. [facility] How much help from another person do you currently need... Turning from your back to your side None while in a flat bed without using bedrails? Moving from lying on back to sitting on None the side of a flat bed without using bedrails? Moving to and from a bed to a chair ( None including a wheelchair)? Standing up from a chair using your arms None ? (e.g., wheelchair, bedside chair) Walking in hospital room? None Climbing 3-5 steps with a railing? None Mobility Score 24 Mobility Level [facility] Mobility Calculator Mobility 8 Walk 250 feet or more Rehab PT IP Eval Objective Appearance Patient Behavior Appropriate,Cooperative Patient Orientation Person,Place,Time Difficulty following instructions none Speech Pattern Clear,Appropriate,Coherent Ambulation Patient Able to Ambulate Yes Ambulation Observation IP General Gait Pattern Observation Wide Based Gait Ambulation Distance (feet) 150 Ambulation Assistive Device Rolling Walker Ambulation Ability Contact Guard/Hand Hold Balance Ability to Arise Able, uses arms to help Sitting Balance Steady, safe Standing Balance Steady, wide stance Dynamic Sitting Balance Ability Normal Dynamic Standing Balance Ability Normal Transfers Bed Transfer Ability Independent Sit to Stand Bed Transfer Ability Independent Rehab PT IP prob,goals,plan Problems Date of Evaluation: 01/28/25 Discharge Plan PT Discharge Plan Pt is currently most appropriate to return home once medically stable for d/c. Pt was able to ambulate ~150 feet down the hallway with a RW with CGA, which pt confirmed is his baseline. Home health therapy is recommended to improve cardiovascular endurance, strength, and treat residual effects of stroke as needed. Skilled acute therapy is not currently indicated as pt is at his baseline with all mobility. Eval Complexity Eval Charge Codes 04515 - High Complexity PHYSICIAN CERTIFICATION: I certify the specified therapy services for Zackary Carrasco are required, authorized, and reviewed every 30 days.
--- NOTE | 2025-01-28 14:41 | SW/DCPLANNER ---
Addendum entered by [facility] 02/10/25 14:18: Patient will discharge to [facility] level of care today. Addendum entered by [facility] 02/09/25 13:57: Per Ivone w/ End[facility] Henderson patient has been approved SNF level of care starting tomorrow 02/10/25. Addendum entered by [facility] 02/09/25 08:47: Per Ivone w/ Endy Henderson precert will be started today. Addendum entered by [facility] 02/08/25 15:00: Ivone at bedside to evaluate patient. Due to patient's drowsiness she will follow up w/ patient's daughter via phone. Addendum entered by [facility] 02/07/25 15:26: Ivone w/ Endy Henderson will be onsite tomorrow morning to evaluate this patient. Addendum entered by [facility] 02/07/25 11:43: [facility] does not have a male bed at this time. Patient information has been faxed to [facility]. Addendum entered by [facility] 02/07/25 10:30: PT re evaluated patient and placement is now recommended. Patient is agreeable to placement at time of discharge and prefers [facility] or [facility]. Patient information will be faxed to both facilities. Discharge date is unknown at this time. CM will continue to follow up. Addendum entered by Isis Haji 01/28/25 15:21: [facility] is able to accept patient. Claus Trejo Original Note: I spoke w/ patient and his daughter regarding discharge planning. PT evaluated patient and recommended home health services. Patient is agreeable to home health services (no agency preference) at time of discharge. Patient information/order will be faxed to Audrey odonnell/ [facility]. Patient/family did inquire about Assisted Living facilities and will further investigate. I have also asked Najma odonnell/ [facility] to speak w/ patient and daughter regarding Medicaid application. CM will continue to follow up w/ [facility]. Per MD patient will discharge home tomorrow pending no setbacks.
--- NOTE | 2025-01-28 15:29 | P.PN_ITS ---
Subjective *Date: 01/28/25 *Time: 15:44 Interval history: Patient having mild nausea this morning. No emesis. Still eating. Having bowel movements. Stable on room air. Has diuresed well, -9 L since admission. Family at bedside. Denies any chest pain. Medical Exam Vital signs and Labs for Last 24 Hours: Vital Signs Temp Pulse Pulse Pulse Resp BP Pulse Ox 01/28/25 12:03 01/28/25 12:00 97.6 F 124 H 16 117/86 97 01/28/25 10:36 01/28/25 08:33 01/28/25 08:00 125 H 01/28/25 08:00 97.0 F L 125 H 16 105/56 L 99 01/28/25 08:00 98 01/28/25 06:09 01/28/25 05:00 01/28/25 04:00 97.8 F 115 H 18 108/61 L 98 01/28/25 04:00 130 H 01/28/25 02:13 01/28/25 01:00 01/28/25 00:00 120 H 01/28/25 00:00 97.8 F 112 H 18 115/84 97 01/27/25 23:00 01/27/25 21:00 01/27/25 20:00 01/27/25 20:00 120 H 01/27/25 20:00 97.8 F 102 H 16 126/83 99 01/27/25 17:27 01/27/25 17:00 01/27/25 16:00 130 H 01/27/25 16:00 98.2 F 126 H 24 131/91 H 99 O2 Del Method 01/28/25 12:03 Room Air 01/28/25 12:00 Room Air 01/28/25 10:36 Room Air 01/28/25 08:33 Room Air 01/28/25 08:00 01/28/25 08:00 Room Air 01/28/25 08:00 Room Air 01/28/25 06:09 Room Air 01/28/25 05:00 Room Air 01/28/25 04:00 Room Air 01/28/25 04:00 01/28/25 02:13 Room Air 01/28/25 01:00 Room Air 01/28/25 00:00 01/28/25 00:00 Room Air 01/27/25 23:00 Room Air 01/27/25 21:00 Room Air 01/27/25 20:00 Room Air 01/27/25 20:00 01/27/25 20:00 Room Air 01/27/25 17:27 Room Air 01/27/25 17:00 Room Air 01/27/25 16:00 01/27/25 16:00 Room Air Intake and Output 01/27/25 01/28/25 01/28/25 23:59 07:59 15:59 Intake Total 360 / 1140 240 / 1140 900 / 1140 Output Total 750 / 3170 950 / 1075 125 / 1075 Balance -390 / -2030 -710 / 65 775 / 65 Intake: Intake, Oral Amount 360 / 1140 240 / 1140 900 / 1140 Output: Output, Urine Amount 750 / 3170 950 / 1075 125 / 1075 Other: Number of Unmeasured Voids 1 Number of Bowel Movements 1 Weight 79.7 kg Patient Weight 01/28/25 23:59 Weight 79.7 kg Laboratory Results - last 24 hr 01/27/25 16:35: POC Glucose 158 H 01/27/25 20:58: POC Glucose 254 H 01/28/25 06:08: POC Glucose 86 01/28/25 06:11: WBC 7.8, RBC 4.47 L, Hgb 12.5 L, Hct 38.3 L, MCV 85.7, MCH 28.0, MCHC 32.6, RDW 15.5, Plt Count 276, MPV 9.5, Neut % (Auto) 63.4, Lymph % (Auto) 23.6, [place] % (Auto) 11.2 H, Eos % (Auto) 1.0, Baso % (Auto) 0.4, Neut # (Auto) 4.9, Lymph # (Auto) 1.8, [place] # (Auto) 0.9, Eos # (Auto) 0.1, Baso # (Auto) 0.0, Sodium 134 L, Potassium 3.8, Chloride 96 L, Carbon Dioxide 28, Anion Gap 13.8, B UN 42 H, Creatinine 3.00 H, Estimated Creat Clear 25, Estimated GFR 21 L, Est GFR ( Amer) 25 L, Glucose 84, Calcium 9.2, Magnesium 2.0 D, Total Bilirubin 0.6, AST 32, ALT 58, Alkaline Phosphatase 142 H, NT-Pro-B Natriuret Pep 63417 H, Total Protein 7.7, Albumin 3.9, Globulin 3.8 H, Albumin/Globulin Ratio 1.0 L 01/28/25 10:11: POC Glucose 232 H I & O for Labs for Last 24 Hours: Intake & Output 01/25/25 01/26/25 01/27/25 01/28/25 23:59 23:59 23:59 23:59 Intake Total 943.776 / 573.174 0412 / 1787 900 / 1140 1140 / 1140 Output Total 3615 / 4265 6025 / 6025 2670 / 3170 1075 / 1075 Balance -2671.224 / -3321.224 -4238 / -4238 -0 / -2029 65 / 65 Weight 86.9 kg 86.7 kg 86.7 kg 79.7 kg Microbiology Reports for the Last 24 Hours: Microbiology 01/24/25 17:25 Anus CRE Surveillance Culture - Final Constitutional: Present no acute distress, average body habitus, chronically ill appearing and cooperative Head: Present atraumatic and normocephalic ENT: Present normal exam Respiratory: Present normal respiratory effort; Absent rhonchi, wheezes or crackles Cardiac: Present Tachycardia GI: Present soft, distention and normal bowel sounds; Absent tenderness Extremities: Present normal inspection, full ROM and edema (2+ to mid ferro) Skin: Present intact; Absent erythema Neuro: Present Grossly Intact, alert, awake, oriented x 3 and moves all extremities Assessment and Plan *Assessment and plan (1) Acute on chronic HFrEF (heart failure with reduced ejection fraction): Status: Acute Category: Medical Code(s): I50.23 - Acute on chronic systolic (congestive) heart failure (2) Atrial fibrillation with RVR: Status: Acute Category: Medical Code(s): I48.91 - Unspecified atrial fibrillation (3) Ischemic cardiomyopathy: Status: Acute Category: Medical Code(s): I25.5 - Ischemic cardiomyopathy (4) Hypothyroidism (acquired): Status: Acute Category: Medical Code(s): E03.9 - Hypothyroidism, unspecified (5) DM type 2 (diabetes mellitus, type 2): Status: Acute Qualifiers: Diabetes mellitus complication status: with other specified complication Diabetes mellitus nursing home insulin use: without nursing home use Qualified Code(s): E11.69 - Type 2 diabetes mellitus with other specified complication Category: Medical Code(s): E11.9 - Type 2 diabetes mellitus without complications (6) Pulmonary HTN: Status: Acute Category: Medical Code(s): I27.20 - Pulmonary hypertension, unspecified (7) CKD stage 4 due to type 2 diabetes mellitus: Status: Acute Category: Medical Code(s): E11.22 - Type 2 diabetes mellitus with diabetic chronic kidney disease; N18.4 - Chronic kidney disease, stage 4 (severe) (8) Coronary artery disease: Status: Acute Qualifiers: Associated angina: with other forms of angina Coronary Disease- Associated Artery/Lesion type: bypass graft [place] vs. transplanted heart: [place] heart Qualified Code(s): I25.708 - Atherosclerosis of coronary artery bypass graft(s), unspecified, with other forms of angina pectoris Category: Medical Code(s): I25.10 - Atherosclerotic heart disease of [place] coronary artery without angina pectoris (9) Presence of stent in coronary artery: Status: Acute Category: Surgical Code(s): Z95.5 - Presence of coronary angioplasty implant and graft (10) Hx of CABG: Status: Acute Category: Surgical Code(s): Z95.1 - Presence of aortocoronary bypass graft Plan Zackary Carrasco is a 74-year-old male with a medical history significant for A-fib, HFrEF, CAD/CABG, NSTEMI, CKD stage IV, hypertension, type 2 diabetes, BPH, GERD who presents with progressive shortness of breath, leg swelling. Patient was recently admitted to our facility last month for similar symptoms. He states he has been adherent to his medications. In the ED, patient's heart rate 120s/130s with A-fib. Patient was initiated on amiodarone drip. Workup also consistent with HFrEF exacerbation, BNP 15,400 with gross signs of volume overload. Case discussed with ED provider and decision was made to admit patient for A-fib RVR, HFrEF exacerbation. Responding to diuretics, off milrinone for 48 hours. Decreased diuretic dose today. Monitor overnight, if does well by morning with stable labs, will discharge home tomorrow. Problems addressed as follows: #Acute on chronic HFrEF #A-fib RVR ? Presented with progressive shortness of breath, volume overload. BNP 15,400. Patient states he has been adherent to his medications, though he lives alone and family questions this. ? Initially started amiodarone drip for A-fib RVR, but transition off as patient has chronic A-fib. Went into transient cardiogenic shock with IV Lopressor 5, reversed with glucagon. RVR is likely, but still in the setting of decompensation. ? Continue Jardiance 10 mg daily, isosorbide dinitrate 20 mg 3 times a day, metoprolol tartrate 25 mg twice daily, spironolactone 25 mg daily. Break from Bumex today. Resume 1 mg daily in the morning tomorrow ? Therapeutic lovenox during admission, no plan for anticoagulation at discharge due to previous history of hematuria from anticoagulation ? Cardiology considering AICD versus referral to advanced heart failure clinic in . Patient nonadherent with LifeVest. #Possible community-acquired pneumonia ? Stable on room air ? levofloxacin on day 4/5. - White count remains Normal at 7.8, hemoglobin 12.5. Repeat CBC, CMP, magnesium ordered for the morning. #CAD s/p CABG 2017, LU[place] 2021 #CKD stage IV ? Continue aspirin 81 mg, clopidogrel 75 mg, atorvastatin 80 mg. ? Kidney function with slight bump today, BUN 42, creatinine 3.0. Baseline appears to be 2.3-2.5. #Hypothyroidism: TSH subtherapeutic 11.8. Continue home levothyroxine 88 mcg. #Type 2 diabetes ? Lantus decreased to 25 units nightly due to well-controlled morning glucose. Continue Jardiance 10 mg daily. ? ACHS glucose checks, LDSSI. - Morning glucose 84. Well-controlled #BPH: Continue home finasteride 5 mg. #GERD: Continue home PPI. DNR/DNI Therapeutic Lovenox diabetic diet
[2025-01-28 15:38] LABS: POC Glucose,Bedside 140 (70-110)
--- NOTE | 2025-01-28 15:58 | PC.NURSE ---
Aox 4, up with assistance times one, states he uses a walker at home, PT and OT consulted, CM consulted, fsbg achs, 20g l ac sl, urinal in use, pt states he will call out if needing to get up out of bed.
[2025-01-28 16:00] VITALS: BP 133/85; PULSE 127; RESP 18; TEMP 36.6; O2SAT 99
--- NOTE | 2025-01-28 19:17 | PC.NURSE ---
. aware patient states he couldn't breath, pee, and then stated some chest discomfort. 97% on RA, HR: 125, BP: 104/65. Pt. placed back on tele and cpox with vitals every 30 minutes times two.
[2025-01-28] MEDS: ACETAMINOPHEN 325MG TAB 650 MG PO (19:18)
[2025-01-28 20:00] VITALS: BP 123/84; PULSE 110; PULSE 120; RESP 20; TEMP 36.6; O2SAT 97
[2025-01-28] MEDS: ATORVASTATIN 40MG TABLET 40 MG PO (20:34)
[2025-01-28] MEDS: INSULIN GLARGINE 100 UNITS/ML 10ML VIAL 25 UNIT SUBCUT (20:35)
[2025-01-28] MEDS: ENOXAPARIN 100MG/ML SYRINGE 85 MG SUBCUT (20:35)
[2025-01-29] VITALS (12 sets, daily range): BP systolic 87–121; BP diastolic 57–82; PULSE 78–124; RESP 16–18; TEMP 35.8–36.8; O2SAT 93–100; BMI 25.9
[2025-01-29] MEDS: ACETAMINOPHEN 325MG TAB 650 MG PO ×2 (02:27→19:47)
[2025-01-29 05:08] LABS: POC Glucose,Bedside 279 (70-110)
[2025-01-29 05:18] LABS: POC Glucose,Bedside 198 (70-110)
[2025-01-29] MEDS: LEVOTHYROXINE 88MCG (0.088MG) TAB 88 MCG PO (06:15)
[2025-01-29] MEDS: humaLOG 100 UNITS/ML 10ML VIAL (SSI) SUBCUT ×2 (06:16→10:37)
--- NOTE | 2025-01-29 06:34 | PC.NURSE ---
Pt A&OX4 and has tolerated room air. VSS. He did complain of shortness of breath that went away once sitting up for a few minutes. He has ambulated with standby assist. No complaints at this time, call light within reach.
[2025-01-29] MEDS: ASPIRIN EC 81MG TABLET 81 MG PO (07:51)
[2025-01-29] MEDS: CLOPIDOGREL 75MG TAB 75 MG PO (07:52)
[2025-01-29] MEDS: BUMETANIDE 1 MG TABLET PO (07:52)
[2025-01-29] MEDS: ISOSORBIDE DINITRATE 20 MG TABLET PO ×3 (07:52→21:41)
[2025-01-29] MEDS: SPIRONOLACTONE 25MG TABLET 25 MG PO (07:52)
[2025-01-29] MEDS: HYDRALAZINE HCL 25MG TABLET 25 MG PO ×3 (07:52→21:41)
[2025-01-29] MEDS: METOPROLOL TARTRATE 25MG TABLET 25 MG PO ×2 (07:53→21:40)
[2025-01-29] MEDS: EMPAGLIFLOZIN 10MG TABLET 10 MG PO (07:53)
[2025-01-29 08:08] LABS: Basophils % 0.4 % (0.1-2.0); Eosinophils # 0.1 Kmm3 (0.0-0.4); Eosinophils % 0.9 % (0.1-12.0); Lymphocytes # 1.2 K/mm3 (0.7-4.5); Lymphocytes % 16.1 % (10-50); Mean Corpuscular HGB Conc 31.7 g/dL (31.8-35.4); Mean Corpuscular Hemoglobin 27.8 pg (27.0-31.2); Mean Corpuscular Volume 87.6 fl (80-94); Mean Platelet Volume 9.8 fl (7.4-10.4); Monocytes # 0.8 K/mm3 (0.1-1.0); Monocytes % 10.9 % (1.7-9.3); Neutrophils # 5.4 K/mm3 (1.8-7.8); Neutrophils % 71.2 % (37.0-80.0); Nucleated Red Blood Cells # 0 10^3/uL; Nucleated Red Blood Cells % 0 %; Platelet Count 314 K/mm3 (142-424); Red Blood Count 4.68 M/mm3 (4.60-6.20); Red Cell Distribution Width 15.6 % (11.5-17.5); Red Cell Distribution Width-SD 50.2 fL; White Blood Count 7.6 K/mm3 (4.8-10.8)
[2025-01-29 08:22] LABS: Alanine Aminotransferase 63 U/L (12-78); Albumin Level 4.1 g/dl (3.5-5.0); Albumin/Globulin Ratio 1.1 (1.1-1.8); Alkaline Phosphatase 168 U/L (38-126); Anion Gap 14.9 mEq/L (5-15); Aspartate Amino Transferase 47 U/L (17-59); Bilirubin,Total 0.7 mg/dl (0.2-1.3); Blood Urea Nitrogen 53 mg/dl (9-20); Calcium 9.4 mg/dl (8.4-10.2); Carbon Dioxide 27 mmol/L (22.0-30.0); Chloride 96 mmol/L (98-107); Creatinine Clearance Estimated 23 mL/min (50-200); Estimated Glomerular Filt Rate 19 ml/min (>60); GFR (African American) 23 ML/MIN (>60); Globulin 3.6 g/dL (1.3-3.2); Glucose 116 mg/dl (74-100); Magnesium 2.5 mg/dl (1.6-2.3); Potassium 3.9 mmoL/L (3.5-5.1); Sodium 134 mmol/L (136-145); Total Protein,Serum 7.7 g/dl (6.3-8.2)
[2025-01-29] MEDS: levoFLOXacin 750 MG TABLET PO (10:17)
[2025-01-29 10:26] LABS: POC Glucose,Bedside 286 (70-110)
--- NOTE | 2025-01-29 11:58 | ECG_ITS ---
APPROVED REPORT Exam: Resting ECG HR:122 bpm ECG Measurements Heart Rate 122 AXES QRSd 100 QRS -36 QT 308 T 145 QTc 380 Conclusion ATRIAL FLUTTER/TACHYCARDIA WITH RAPID VENTRICULAR RESPONSE WITH ABERRANT CONDUCTION OR VENTRICULAR PREMATURE COMPLEXES PATTERN CONSISTENT WITH PULMONARY DISEASE INFERIOR MYOCARDIAL INFARCTION , PROBABLY OLD [40+ ms Q WAVE AND/OR ST/T ABNORMALITY IN II/aVF] ABNORMAL ECG UNCONFIRMED REPORT Electronically signed by : Roc Fajardo MD 01/31/2025 08:28:51
[2025-01-29] MEDS: METOPROLOL TARTRATE 50MG TABLET 25 MG PO (12:57)
[2025-01-29] MEDS: BELLADONNA ALKALOIDS 60 ML ML PO (15:02)
--- NOTE | 2025-01-29 15:49 | PC.NURSE ---
Pt. called out stating he can't breath after walking to the restroom. Assured him his vitals are good BP: of 112/78 P:116, RR: 18, 96% on RA, no labored breathing noted, family present in room and MD. aware.
--- NOTE | 2025-01-29 16:08 | XR_ITS ---
PROCEDURE INFORMATION: Exam: XR Chest Exam date and time: 01/29/2025 5:13 PM Age: 74 years old Clinical indication: Shortness of breath TECHNIQUE: Imaging protocol: Radiologic exam of the chest. Views: 1 view. COMPARISON: CR XR CHEST PORTABLE 01/25/2025 8:44 AM FINDINGS: Lungs: Mild pulmonary vascular congestion. Pleural spaces: No pleural effusion. No pneumothorax. Heart/Mediastinum: Cardiomegaly. Bones/joints: Median sternotomy. IMPRESSION: Cardiomegaly and mild pulmonary vascular congestion.
[2025-01-29 16:13] LABS: POC Glucose,Bedside 151 (70-110)
--- NOTE | 2025-01-29 16:16 | ECG_ITS ---
APPROVED REPORT Exam: Resting ECG HR:99 bpm ECG Measurements Heart Rate 99 AXES QRSd 102 QRS 211 QT 360 T 20 QTc 416 Conclusion ATRIAL FLUTTER/TACHYCARDIA POSSIBLE RIGHT VENTRICULAR HYPERTROPHY [SOME/ALL OF: PROMINENT R IN V1, LATE TRANSITION, RAD, TERRENCE, SSS] POSSIBLE ANTERIOR MYOCARDIAL INFARCTION , OF INDETERMINATE AGE [30 ms Q WAVE IN V3/V4, OR R < 0.2 mV IN V4] ABNORMAL ECG UNCONFIRMED REPORT Electronically signed by : Roc Fajardo MD 01/31/2025 08:28:10
[2025-01-29 16:35] LABS: Basophils % 0.3 % (0.1-2.0); Eosinophils # 0.1 Kmm3 (0.0-0.4); Eosinophils % 1.5 % (0.1-12.0); Hematocrit 39.7 % (42.0-52.0); Hemoglobin 12.8 g/dL (14.1-18.0); Lymphocytes # 1.7 K/mm3 (0.7-4.5); Lymphocytes % 18.5 % (10-50); Mean Corpuscular HGB Conc 32.2 g/dL (31.8-35.4); Mean Corpuscular Hemoglobin 28.1 pg (27.0-31.2); Mean Corpuscular Volume 87.1 fl (80-94); Mean Platelet Volume 9.6 fl (7.4-10.4); Monocytes % 11.1 % (1.7-9.3); Neutrophils # 6.3 K/mm3 (1.8-7.8); Neutrophils % 68.2 % (37.0-80.0); Nucleated Red Blood Cells # 0 10^3/uL; Nucleated Red Blood Cells % 0 %; Platelet Count 333 K/mm3 (142-424); Red Blood Count 4.56 M/mm3 (4.60-6.20); Red Cell Distribution Width 15.5 % (11.5-17.5); Red Cell Distribution Width-SD 49.2 fL; White Blood Count 9.2 K/mm3 (4.8-10.8)
[2025-01-29 16:36] LABS: Chloride 94 mmol/L (98-107); Sodium 130 mmol/L (136-145)
[2025-01-29 16:39] LABS: Blood Urea Nitrogen 58 mg/dl (9-20); Calcium 9.2 mg/dl (8.4-10.2); Carbon Dioxide 25 mmol/L (22.0-30.0); Creatinine Clearance Estimated 21 mL/min (50-200); Estimated Glomerular Filt Rate 17 ml/min (>60); GFR (African American) 20 ML/MIN (>60); Glucose 156 mg/dl (74-100)
[2025-01-29 16:52] LABS: Troponin I 0.05 ng/ml (0.00-0.034)
--- NOTE | 2025-01-29 16:56 | PC.NURSE ---
assumed care of pt from LUIS Chapin @ [id number]
[2025-01-29] MEDS: 0.9 % SODIUM CHLORIDE 1000ML 500 ML 250 ML IV (17:05)
--- NOTE | 2025-01-29 17:18 | PC.NURSE ---
rounded to introduce myself to the pt and found pt sitting on edge of the bed, diaphoretic and claiming to have chest discomfort. previous RN aware and notified hospitalist. chest x-ray, VBG, troponins and EKG ordered. this RN started fluids per dec. This RN assessed vitals. pt hypotensive and in a flutter with hr ranging 110-120. this has been pt baseline. hospitalist aware of situation.
[2025-01-29 17:42] LABS: NT Pro Brain Natriuretic Pep. 22600 pg/mL (0-125)
[2025-01-29 18:29] LABS: Lactate Venous 2.2 mmol/L (0.4-2.0); VBG HCO3 22.7 mmol/L (23-30); VBG Oxygen Saturation 60.2 % (50-70); VBG PH 7.41 mmol/L (7.31-7.41); VBG PO2 32.2 mmol/L (28-40); VBG Total CO2 23.9 mmol/L (23-27)
--- NOTE | 2025-01-29 21:33 | EXP.PN ---
Subjective *Date: 01/29/25 *Time: 21:33 Interval history: Patient was slightly short of breath, diaphoretic after increasing metoprolol tartrate to 50 mg twice daily today after discussing with cardiology, reduce back to 25 mg. LIANE worsening, holding diuretics and given to 50 cc bolus. Follow-up CMP in the morning. Exam Data for Last 24 hours Vital signs and Labs for Last 24 Hours: Temp Pulse Resp BP Pulse Ox O2 Del Method O2 Flow Rate 96.4 F L 117 H 18 109/74 L 100 Room Air 3 01/29/25 20:00 01/29/25 20:00 01/29/25 20:00 01/29/25 20:00 01/29/25 20:00 01/29/25 20:00 01/24/25 18:40 Laboratory Results - last 24 hr 01/28/25 19:49: POC Glucose 279 H 01/29/25 05:09: POC Glucose 198 H 01/29/25 07:20: WBC 7.6, RBC 4.68, Hgb 13.0 L, Hct 41.0 L, MCV 87.6, MCH 27.8, MCHC 31.7 L, RDW 15.6, Plt Count 314, MPV 9.8, Neut % (Auto) 71.2, Lymph % (Auto) 16.1, [place] % (Auto) 10.9 H, Eos % (Auto) 0.9, Baso % (Auto) 0.4, Neut # (Auto) 5.4, Lymph # (Auto) 1.2, [place] # (Auto) 0.8, Eos # (Auto) 0.1, Baso # (Auto) 0.0, Sodium 134 L, Potassium 3.9, Chloride 96 L, Carbon Dioxide 27, Anion Gap 14.9, BUN 53 H D, Creatinine 3.20 H, Estimated Creat Clear 23, Estimated GFR 19 L*, Est GFR ( Amer) 23 L, Glucose 116 H, Calcium 9.4, Magnesium 2.5 H D, Total Bilirubin 0.7, AST 47 D, ALT 63, Alkaline Phosphatase 168 H, Total Protein 7.7, Albumin 4.1, Globulin 3.6 H, Albumin/Globulin Ratio 1.1 01/29/25 10:19: POC Glucose 286 H 01/29/25 16:04: POC Glucose 151 H 01/29/25 16:07: VBG pH 7.41, VBG pCO2 37.0, VBG pO2 32.2, VBG HCO3 22.7 L, VBG Total CO2 23.9, VBG O2 Saturation 60.2, VBG Base Excess -2.0, VBG Lactic Acid 2.2 H 01/29/25 16:25: WBC 9.2, RBC 4.56 L, Hgb 12.8 L, Hct 39.7 L, MCV 87.1, MCH 28.1, MCHC 32.2, RDW 15.5, Plt Count 333, MPV 9.6, Neut % (Auto) 68.2, Lymph % (Auto) 18.5, [place] % (Auto) 11.1 H, Eos % (Auto) 1.5, Baso % (Auto) 0.3, Neut # (Auto) 6.3, Lymph # (Auto) 1.7, [place] # (Auto) 1.0, Eos # (Auto) 0.1, Baso # (Auto) 0.0, Sodium 130 L, Potassium 5.0 D, Chloride 94 L, Carbon Dioxide 25, Anion Gap 16.0 H, BUN 58 H, Creatinine 3.60 H, Estimated Creat Clear 21, Estimated GFR 17 L*, Est GFR ( Amer) 20 L, Glucose 156 H D, Calcium 9.2, Troponin I 0.05 H, NT-Pro-B Natriuret Pep 96018 H I & O for Last 24 hours: Intake & Output 01/26/25 01/27/25 01/28/25 01/29/25 23:59 23:59 23:59 23:59 Intake Total 1787 / 1787 900 / 1140 1530 / 1780 1000 / 1000 Output Total 6025 / 6025 2670 / 3170 1650 / 1950 700 / 700 Balance -4238 / -4238 -1770 / -2030 -120 / -170 300 / 300 Weight 86.7 kg 86.7 kg 79.7 kg 79.5 kg Constitutional Constitutional: no acute distress *Routine HEENT Exam Head: Present normocephalic Eye: Present EOMI and PERRL ENT: Present mucous membranes moist *Routine Neck Exam Neck: Present supple; Absent lymphadenopathy *Routine Respiratory Exam Respiratory: Present CTA bilaterally *Routine Cardiovascular Exam Cardiovascular: Present tachycardia *Routine Abdominal Exam Abdominal: Present soft and normoactive bowel sounds; Absent tenderness *Routine Extremities Exam Extremities: Absent cyanosis, clubbing or edema *Routine Skin Exam Skin: Present warm; Absent rash *Routine Neurological Exam Neurological: Present alert and oriented X3 Assessment and Plan *Assessment and plan (1) Acute on chronic HFrEF (heart failure with reduced ejection fraction): Status: Acute Category: Medical Code(s): I50.23 - Acute on chronic systolic (congestive) heart failure (2) Atrial fibrillation with RVR: Status: Acute Category: Medical Code(s): I48.91 - Unspecified atrial fibrillation (3) Ischemic cardiomyopathy: Status: Acute Category: Medical Code(s): I25.5 - Ischemic cardiomyopathy (4) Hypothyroidism (acquired): Status: Acute Category: Medical Code(s): E03.9 - Hypothyroidism, unspecified (5) DM type 2 (diabetes mellitus, type 2): Status: Acute Qualifiers: Diabetes mellitus penitentiary insulin use: without termite renewal inspector use Diabetes mellitus complication status: with other specified complication Qualified Code(s): E11.69 - Type 2 diabetes mellitus with other specified complication Category: Medical Code(s): E11.9 - Type 2 diabetes mellitus without complications (6) Pulmonary HTN: Status: Acute Category: Medical Code(s): I27.20 - Pulmonary hypertension, unspecified (7) CKD stage 4 due to type 2 diabetes mellitus: Status: Acute Category: Medical Code(s): E11.22 - Type 2 diabetes mellitus with diabetic chronic kidney disease; N18.4 - Chronic kidney disease, stage 4 (severe) (8) Coronary artery disease: Status: Acute Qualifiers: Coronary Disease-Associated Artery/Lesion type: bypass graft [place] vs. transplanted heart: [place] heart Associated angina: with other forms of angina Qualified Code(s): I25.708 - Atherosclerosis of coronary artery bypass graft(s), unspecified, with other forms of angina pectoris Category: Medical Code(s): I25.10 - Atherosclerotic heart disease of [place] coronary artery without angina pectoris (9) Presence of stent in coronary artery: Status: Acute Category: Surgical Code(s): Z95.5 - Presence of coronary angioplasty implant and graft (10) Hx of CABG: Status: Acute Category: Surgical Code(s): Z95.1 - Presence of aortocoronary bypass graft Plan Zackary Carrasco is a 74-year-old male with a medical history significant for A-fib, HFrEF, CAD/CABG, NSTEMI, CKD stage IV, hypertension, type 2 diabetes, BPH, GERD who presents with progressive shortness of breath, leg swelling. Patient was recently admitted to our facility last month for similar symptoms. He states he has been adherent to his medications. In the ED, patient's heart rate 120s/130s with A-fib. Patient was initiated on amiodarone drip. Workup also consistent with HFrEF exacerbation, BNP 15,400 with gross signs of volume overload. Case discussed with ED provider and decision was made to admit patient for A-fib RVR, HFrEF exacerbation. #Acute on chronic HFrEF #A-fib RVR ? Presented with progressive shortness of breath, volume overload. BNP 15,400. Patient states he has been adherent to his medications, though he lives alone and family questions this. ? Initially started amiodarone drip for A-fib RVR, but transition off as patient has chronic A-fib. Went into transient cardiogenic shock with IV Lopressor 5, reversed with glucagon. RVR is likely, but still in the setting of decompensation. ? Continue Jardiance 10 mg daily, isosorbide dinitrate 20 mg 3 times a day, metoprolol tartrate 25 mg twice daily, spironolactone 25 mg daily. ?Patient's heart rate continue to be in the 120s/130s today, spoke with Dr. Martins and joint decision was made to increase metoprolol tartrate to 50 mg twice daily. Unfortunately, patient did not tolerate this very well, became slightly short of breath and diaphoretic. Improved with 250 cc NS bolus. ? Will monitor overnight, especially in the setting of worsening LIANE and holding diuresis. Anticipate discharge in the morning if renal function improves. ? Therapeutic lovenox during admission, no plan for anticoagulation at discharge due to previous history of hematuria from anticoagulation. ? Cardiology considering AICD versus referral to advanced heart failure clinic in . Patient nonadherent with LifeVest. #LIANE on CKD stage IV ? Creatinine bumped to 3.6 today, baseline 2.5. Given 250 cc NS bolus. Holding diuretics. Likely over diuresed. ? Follow-up CMP in the morning. #Possible community-acquired pneumonia ? Stable on room air ? levofloxacin on day 5/. #CAD s/p CABG 2017, LUKE 2021 #CKD stage IV ? Continue aspirin 81 mg, clopidogrel 75 mg, atorvastatin 80 mg. ? Kidney function with slight bump today, BUN 42, creatinine 3.0. Baseline appears to be 2.3-2.5. #Hypothyroidism: TSH subtherapeutic 11.8. Continue home levothyroxine 88 mcg. #Type 2 diabetes ? Lantus decreased to 25 units nightly due to well-controlled morning glucose. Continue Jardiance 10 mg daily. ? ACHS glucose checks, LDSSI. #BPH: Continue home finasteride 5 mg. #GERD: Continue home PPI. DNR/DNI Therapeutic Lovenox diabetic diet
[2025-01-29] MEDS: ENOXAPARIN 80MG/0.8ML SYRINGE 80 MG SUBCUT (21:39)
[2025-01-29] MEDS: INSULIN GLARGINE 100 UNITS/ML 10ML VIAL 25 UNIT SUBCUT (21:39)
[2025-01-29 21:40] LABS: POC Glucose,Bedside 155 (70-110)
[2025-01-29] MEDS: ATORVASTATIN 40MG TABLET 40 MG PO (21:41)
[2025-01-29] MEDS: PANTOPRAZOLE 40MG TABLET 40 MG PO (21:41)
[2025-01-29] MEDS: OLANZapine 5 MG ODT TABLET SL (21:41)
[2025-01-29 22:30] LABS: Reflex Lactic Add Lactic Reflex
--- NOTE | 2025-01-29 22:54 | XR_ITS ---
PROCEDURE INFORMATION: Exam: XR Chest Exam date and time: 01/29/2025 10:57 PM Age: 74 years old Clinical indication: Shortness of breath TECHNIQUE: Imaging protocol: Radiologic exam of the chest. Views: 1 view. COMPARISON: CR XR CHEST PORTABLE 01/29/2025 5:13 PM FINDINGS: Lungs: Unremarkable. No consolidation. Pleural spaces: Unremarkable. No pleural effusion. No pneumothorax. Heart/Mediastinum: Stable cardiomegaly. Bones/joints: Unremarkable. IMPRESSION: No acute findings.
--- NOTE | 2025-01-29 23:00 | PC.NURSE ---
At 2248 patient called out stating SOB. This RN assessed patient. Patient breathing was stable and regular. Patient slightly tachapenic at 24 breaths per minute. No labored breathing noted. Patient's SPO2 at 98% on RA. HR 177 in A-fib which is baseline for patient. Provider called and notified. Ronnie Rousseau arrived at 2258 to assess patient. He stated that patient did not appear to be in distress but would order chest x-ray to insure no new issues. Continuing to monitor patient on Telemetry and continuous pulsOx.
[2025-01-29 23:14] LABS: Lactic Acid Follow Up (RFLX 1) 1.4 mmol/L (0.7-2.1)
[2025-01-30] VITALS (9 sets, daily range): BP systolic 106–158; BP diastolic 69–95; PULSE 71–130; RESP 16–20; TEMP 35.8–36.6; O2SAT 95–100; BMI 26.8
--- NOTE | 2025-01-30 03:32 | PC.NURSE ---
This RN took over care for this patient @ 1971.
[2025-01-30 05:59] LABS: POC Glucose,Bedside 74 (70-110)
[2025-01-30] MEDS: LEVOTHYROXINE 88MCG (0.088MG) TAB 88 MCG PO (06:54)
[2025-01-30 07:36] LABS: Basophils # 0.1 K/mm3 (0-0.2); Basophils % 0.5 % (0.1-2.0); Eosinophils % 0.4 % (0.1-12.0); Hematocrit 37.4 % (42.0-52.0); Hemoglobin 12.3 g/dL (14.1-18.0); Lymphocytes # 2.2 K/mm3 (0.7-4.5); Lymphocytes % 21.9 % (10-50); Mean Corpuscular HGB Conc 32.9 g/dL (31.8-35.4); Mean Corpuscular Hemoglobin 27.5 pg (27.0-31.2); Mean Corpuscular Volume 83.7 fl (80-94); Mean Platelet Volume 9.7 fl (7.4-10.4); Monocytes # 1.2 K/mm3 (0.1-1.0); Neutrophils # 6.4 K/mm3 (1.8-7.8); Neutrophils % 64.9 % (37.0-80.0); Nucleated Red Blood Cells # 0 10^3/uL; Nucleated Red Blood Cells % 0 %; Platelet Count 325 K/mm3 (142-424); Red Blood Count 4.47 M/mm3 (4.60-6.20); Red Cell Distribution Width 15.1 % (11.5-17.5); Red Cell Distribution Width-SD 45.6 fL; White Blood Count 9.9 K/mm3 (4.8-10.8)
[2025-01-30 07:41] LABS: Albumin Level 3.8 g/dl (3.5-5.0); Chloride 97 mmol/L (98-107); Potassium 4.1 mmoL/L (3.5-5.1); Sodium 130 mmol/L (136-145)
[2025-01-30 07:44] LABS: Alanine Aminotransferase 74 U/L (12-78); Albumin/Globulin Ratio 1.2 (1.1-1.8); Alkaline Phosphatase 178 U/L (38-126); Anion Gap 15.1 mEq/L (5-15); Aspartate Amino Transferase 69 U/L (17-59); Bilirubin,Total 1.2 mg/dl (0.2-1.3); Blood Urea Nitrogen 69 mg/dl (9-20); Carbon Dioxide 22 mmol/L (22.0-30.0); Creatinine Clearance Estimated 20 mL/min (50-200); Estimated Glomerular Filt Rate 16 ml/min (>60); GFR (African American) 19 ML/MIN (>60); Globulin 3.2 g/dL (1.3-3.2)
[2025-01-30 07:45] LABS: Calcium 8.8 mg/dl (8.4-10.2); Glucose 59 mg/dl (74-100); Magnesium 2.1 mg/dl (1.6-2.3)
[2025-01-30] MEDS: CLOPIDOGREL 75MG TAB 75 MG PO (08:35)
[2025-01-30] MEDS: ASPIRIN EC 81MG TABLET 81 MG PO (08:35)
[2025-01-30] MEDS: ISOSORBIDE DINITRATE 20 MG TABLET PO (08:35)
[2025-01-30 11:10] LABS: Creatinine,Urine Random 59 mg/dL (Not Estab.); Urea Nitrogen,Urine Random 363 mg/dl (Not Estab.)
[2025-01-30 11:55] LABS: POC Glucose,Bedside 146 (70-110)
[2025-01-30] MEDS: METOPROLOL SUCCINATE XL 25MG TABLET 25 MG PO (14:10)
[2025-01-30 15:13] LABS: Chloride 93 mmol/L (98-107); Potassium 4.4 mmoL/L (3.5-5.1); Sodium 130 mmol/L (136-145)
[2025-01-30 15:16] LABS: Anion Gap 16.4 mEq/L (5-15); Blood Urea Nitrogen 69 mg/dl (9-20); Calcium 8.7 mg/dl (8.4-10.2); Carbon Dioxide 25 mmol/L (22.0-30.0); Creatinine Clearance Estimated 20 mL/min (50-200); Estimated Glomerular Filt Rate 16 ml/min (>60); GFR (African American) 19 ML/MIN (>60); Glucose 185 mg/dl (74-100)
[2025-01-30 15:22] LABS: POC Glucose,Bedside 184 (70-110)
[2025-01-30] MEDS: humaLOG 100 UNITS/ML 10ML VIAL (SSI) SUBCUT ×2 (15:44→20:22)
[2025-01-30] MEDS: ACETAMINOPHEN 325MG TAB 650 MG PO (16:07)
--- NOTE | 2025-01-30 16:27 | EXP.PN ---
Subjective *Date: 01/30/25 *Time: 16:27 Interval history: Patient feeling better this morning after holding metoprolol tartrate, no shortness of breath. Throughout hospital course, patient has exhibited poor tolerance to beta-blockers for a flutter RVR. Even increasing metoprolol tartrate to 50 mg twice daily yesterday caused shortness of breath, diaphoresis, hypotension which resolved with 250 cc bolus. Patient continues to have intermittent shortness of breath in the setting of A-fib RVR and SOB likely from such. I spoke to Dr. Martins extensively, we will plan for CLAUDINE and cardioversion tomorrow. Patient is not a candidate for amiodarone (chronic A-fib), digoxin (CKD stage IV), diltiazem (HFrEF). Patient patient does have a history of hematuria with anticoagulation, but has been asymptomatic from that regard with therapeutic Lovenox during hospitalization. I do believe that the pros of cardioversion outweigh the cons of possible hematuria that likely needs further evaluation by urology. Continue supportive therapy for ATN. Creatinine plateaued today. Hold diuretics, IV fluids. N.p.o. at midnight, plan for CLAUDINE and cardioversion in the morning. Exam Data for Last 24 hours Vital signs and Labs for Last 24 Hours: Temp Pulse Resp BP Pulse Ox O2 Del Method O2 Flow Rate 97.9 F 121 H 16 120/83 98 Room Air 3 01/30/25 07:51 01/30/25 12:00 01/30/25 12:00 01/30/25 12:00 01/30/25 12:00 01/30/25 15:00 01/24/25 18:40 Laboratory Results - last 24 hr 01/29/25 16:07: VBG pH 7.41, VBG pCO2 37.0, VBG pO2 32.2, VBG HCO3 22.7 L, VBG Total CO2 23.9, VBG O2 Saturation 60.2, VBG Base Excess -2.0, VBG Lactic Acid 2.2 H 01/29/25 16:25: WBC 9.2, RBC 4.56 L, Hgb 12.8 L, Hct 39.7 L, MCV 87.1, MCH 28.1, MCHC 32.2, RDW 15.5, Plt Count 333, MPV 9.6, Neut % (Auto) 68.2, Lymph % (Auto) 18.5, [place] % (Auto) 11.1 H, Eos % (Auto) 1.5, Baso % (Auto) 0.3, Neut # (Auto) 6.3, Lymph # (Auto) 1.7, [place] # (Auto) 1.0, Eos # (Auto) 0.1, Baso # (Auto) 0.0, Sodium 130 L, Potassium 5.0 D, Chloride 94 L, Carbon Dioxide 25, Anion Gap 16.0 H, BUN 58 H, Creatinine 3.60 H, Estimated Creat Clear 21, Estimated GFR 17 L*, Est GFR ( Amer) 20 L, Glucose 156 H D, Calcium 9.2, Troponin I 0.05 H, NT-Pro-B Natriuret Pep 07825 H 01/29/25 21:31: POC Glucose 155 H 01/29/25 22:57: Lactate 1.4 01/30/25 05:51: POC Glucose 74 01/30/25 07:06: WBC 9.9, RBC 4.47 L, Hgb 12.3 L, Hct 37.4 L, MCV 83.7, MCH 27.5, MCHC 32.9, RDW 15.1, Plt Count 325, MPV 9.7, Neut % (Auto) 64.9, Lymph % (Auto) 21.9, [place] % (Auto) 12.0 H, Eos % (Auto) 0.4, Baso % (Auto) 0.5, Neut # (Auto) 6.4, Lymph # (Auto) 2.2, [place] # (Auto) 1.2 H, Eos # (Auto) 0.0, Baso # (Auto) 0.1, Sodium 130 L, Potassium 4.1, Chloride 97 L, Carbon Dioxide 22, Anion Gap 15.1 H, BUN 69 H, Creatinine 3.80 H, Estimated Creat Clear 20, Estimated GFR 16 L*, Est GFR ( Amer) 19 L*, Glucose 59 L D, Calcium 8.8, Magnesium 2.1 D, Total Bilirubin 1.2, AST 69 H D, ALT 74, Alkaline Phosphatase 178 H, Total Protein 7.0, Albumin 3.8, Globulin 3.2, Albumin/Globulin Ratio 1.2 01/30/25 10:47: Ur Random Urea Nitrogn 363, Urine Creatinine 59, Urine Sodium 28.0 L 01/30/25 11:47: POC Glucose 146 H 01/30/25 15:00: Sodium 130 L, Potassium 4.4, Chloride 93 L, Carbon Dioxide 25, Anion Gap 16.4 H, BUN 69 H, Creatinine 3.80 H, Estimated Creat Clear 20, Estimated GFR 16 L*, Est GFR ( Amer) 19 L*, Glucose 185 H D, Calcium 8.7 01/30/25 15:15: POC Glucose 184 H I & O for Last 24 hours: Intake & Output 01/27/25 01/28/25 01/29/25 01/30/25 23:59 23:59 23:59 23:59 Intake Total 900 / 1140 1530 / 1780 1000 / 1400 1615 / 1615 Output Total 2670 / 3170 1650 / 1950 800 / 800 750 / 750 Balance -1770 / -2030 -120 / -170 200 / 600 865 / 865 Weight 86.7 kg 79.7 kg 79.5 kg 82.191 kg Constitutional Constitutional: no acute distress *Routine HEENT Exam Head: Present normocephalic Eye: Present EOMI and PERRL ENT: Present mucous membranes moist *Routine Neck Exam Neck: Present supple; Absent lymphadenopathy *Routine Respiratory Exam Respiratory: Present CTA bilaterally *Routine Cardiovascular Exam Cardiovascular: Present tachycardia *Routine Abdominal Exam Abdominal: Present soft and normoactive bowel sounds; Absent tenderness *Routine Extremities Exam Extremities: Absent cyanosis, clubbing or edema *Routine Skin Exam Skin: Present warm; Absent rash *Routine Neurological Exam Neurological: Present alert and oriented X3 Assessment and Plan *Assessment and plan (1) Acute on chronic HFrEF (heart failure with reduced ejection fraction): Status: Acute Category: Medical Code(s): I50.23 - Acute on chronic systolic (congestive) heart failure (2) Atrial fibrillation with RVR: Status: Acute Category: Medical Code(s): I48.91 - Unspecified atrial fibrillation (3) Ischemic cardiomyopathy: Status: Acute Category: Medical Code(s): I25.5 - Ischemic cardiomyopathy (4) Hypothyroidism (acquired): Status: Acute Category: Medical Code(s): E03.9 - Hypothyroidism, unspecified (5) DM type 2 (diabetes mellitus, type 2): Status: Acute Qualifiers: Diabetes mellitus mycology teacher insulin use: without long-term use Diabetes mellitus complication status: with other specified complication Qualified Code(s): E11.69 - Type 2 diabetes mellitus with other specified complication Category: Medical Code(s): E11.9 - Type 2 diabetes mellitus without complications (6) Pulmonary HTN: Status: Acute Category: Medical Code(s): I27.20 - Pulmonary hypertension, unspecified (7) CKD stage 4 due to type 2 diabetes mellitus: Status: Acute Category: Medical Code(s): E11.22 - Type 2 diabetes mellitus with diabetic chronic kidney disease; N18.4 - Chronic kidney disease, stage 4 (severe) (8) Coronary artery disease: Status: Acute Qualifiers: Coronary Disease-Associated Artery/Lesion type: bypass graft [place] vs. transplanted heart: [place] heart Associated angina: with other forms of angina Qualified Code(s): I25.708 - Atherosclerosis of coronary artery bypass graft(s), unspecified, with other forms of angina pectoris Category: Medical Code(s): I25.10 - Atherosclerotic heart disease of [place] coronary artery without angina pectoris (9) Presence of stent in coronary artery: Status: Acute Category: Surgical Code(s): Z95.5 - Presence of coronary angioplasty implant and graft (10) Hx of CABG: Status: Acute Category: Surgical Code(s): Z95.1 - Presence of aortocoronary bypass graft Plan Zackary Carrasco is a 74-year-old male with a medical history significant for A-fib, HFrEF, CAD/CABG, NSTEMI, CKD stage IV, hypertension, type 2 diabetes, BPH, GERD who presents with progressive shortness of breath, leg swelling. Patient was recently admitted to our facility last month for similar symptoms. He states he has been adherent to his medications. In the ED, patient's heart rate 120s/130s with A-fib. Patient was initiated on amiodarone drip. Workup also consistent with HFrEF exacerbation, BNP 15,400 with gross signs of volume overload. Case discussed with ED provider and decision was made to admit patient for A-fib RVR, HFrEF exacerbation. #Acute on chronic HFrEF # A-flutter RVR ? Presented with progressive shortness of breath, volume overload. BNP 15,400. Patient states he has been adherent to his medications, though he lives alone and family questions this. ? Initially started amiodarone drip for A-fib RVR, but transition off as patient has chronic A-fib. Went into transient cardiogenic shock with IV Lopressor 5, reversed with glucagon. RVR is likely, but still in the setting of decompensation. ? Throughout hospital course, patient has exhibited poor tolerance to beta-blockers for a flutter RVR. Even increasing metoprolol tartrate to 50 mg twice daily yesterday caused shortness of breath, diaphoresis, hypotension which resolved with 250 cc bolus. Patient continues to have intermittent shortness of breath in the setting of A-fib RVR and likely from such. I spoke to Dr. Martins extensively, we will plan for cardioversion tomorrow. Patient is not a candidate for amiodarone (chronic A-fib), digoxin (CKD stage IV), diltiazem (HFrEF). Patient patient does have a history of hematuria with anticoagulation, but has been asymptomatic from that regard with therapeutic Lovenox during hospitalization. I do believe that the pros of cardioversion outweigh the cons of possible hematuria that likely needs further evaluation by urology. ? N.p.o. at midnight, planning for CLAUDINE and cardioversion for A-fib RVR tomorrow. ? Given ATN, holding Jardiance, Imdur, spironolactone, hydralazine. Continue home metoprolol succinate 25 mg. ? Continue therapeutic Lovenox, plan to transition to DOAC if cardioversion successful tomorrow. ? Cardiology considering AICD versus referral to advanced heart failure clinic in . Patient nonadherent with LifeVest due to discomfort. #LIANE on CKD stage IV #ATN ? Creatinine bumped to 3.8 this morning, but stable at 3.8 this afternoon. Baseline around 2.5. Likely from overdiuresis initially. ? Holding diuretics, GDMT as above. Patient tolerating p.o. intake. ? Will allow ATN to self resolve without diuretics or IV fluids. Making urine. ? Follow-up CMP in the morning. #Possible community-acquired pneumonia ? Stable on room air. No leukocytosis, signs of sepsis. Finished 5-day course of levofloxacin. #CAD s/p CABG 2017, LUKE 2021 #CKD stage IV ? Continue aspirin 81 mg, clopidogrel 75 mg, atorvastatin 80 mg. #Hypothyroidism: TSH subtherapeutic 11.8. Continue home levothyroxine 88 mcg. #Type 2 diabetes ? Lantus decreased to 25 units nightly due to well-controlled morning glucose. Continue Jardiance 10 mg daily. ? ACHS glucose checks, LDSSI. #BPH: Continue home finasteride 5 mg. #GERD: Continue home PPI. DNR/DNI Therapeutic Lovenox Diabetic diet
--- NOTE | 2025-01-30 17:23 | PC.NURSE ---
Pt has done well this shift. VSS. Remains on room air. He has been ambulatory in his room with standby assist and a walker. He has c/o shortness of breath x1. notified, no new orders. Pt medicated for back pain x1 per DEC.
[2025-01-30 20:14] LABS: POC Glucose,Bedside 270 (70-110)
[2025-01-30] MEDS: PANTOPRAZOLE 40MG TABLET 40 MG PO (20:22)
[2025-01-30] MEDS: ENOXAPARIN 80MG/0.8ML SYRINGE 80 MG SUBCUT (20:22)
[2025-01-30] MEDS: INSULIN GLARGINE 100 UNITS/ML 10ML VIAL 15 UNIT SUBCUT (20:22)
[2025-01-30] MEDS: ATORVASTATIN 40MG TABLET 40 MG PO (20:22)
[2025-01-30] MEDS: ONDANSETRON 4MG/2ML VIAL 4 MG IV (22:28)
[2025-01-31] VITALS (10 sets, daily range): BP systolic 116–130; BP diastolic 71–92; PULSE 110–123; RESP 16–20; TEMP 36.3–36.9; O2SAT 94–100; BMI 26.4
[2025-01-31] MEDS: ACETAMINOPHEN 325MG TAB 650 MG PO (02:51)
--- NOTE | 2025-01-31 05:33 | PC.NURSE ---
Pt A&OX4. He did complain of shortness of breath once this shift. vitals were taken. He was 99% on room air. Hospitalist notified and pt was placed on 1L nasal cannula for comfort. He has not complained since. He has ambulated to the bathroom with standby assist. He has remained sinus tach on tele. He has remained NPO since midnight. Currently resting in bed with call light within reach.
[2025-01-31] MEDS: LEVOTHYROXINE 88MCG (0.088MG) TAB 88 MCG PO (06:11)
[2025-01-31 06:18] LABS: POC Glucose,Bedside 64 (70-110)
[2025-01-31 06:20] LABS: Basophils # 0.1 K/mm3 (0-0.2); Basophils % 0.7 % (0.1-2.0); Eosinophils # 0.1 Kmm3 (0.0-0.4); Eosinophils % 0.7 % (0.1-12.0); Hemoglobin 12.8 g/dL (14.1-18.0); Lymphocytes # 1.6 K/mm3 (0.7-4.5); Lymphocytes % 19.3 % (10-50); Mean Corpuscular HGB Conc 33.7 g/dL (31.8-35.4); Mean Corpuscular Hemoglobin 28.1 pg (27.0-31.2); Mean Corpuscular Volume 83.3 fl (80-94); Mean Platelet Volume 9.4 fl (7.4-10.4); Monocytes # 0.9 K/mm3 (0.1-1.0); Monocytes % 10.6 % (1.7-9.3); Neutrophils # 5.7 K/mm3 (1.8-7.8); Nucleated Red Blood Cells # 0 10^3/uL; Nucleated Red Blood Cells % 0 %; Platelet Count 314 K/mm3 (142-424); Red Blood Count 4.56 M/mm3 (4.60-6.20); Red Cell Distribution Width 15.1 % (11.5-17.5); Red Cell Distribution Width-SD 45.8 fL; White Blood Count 8.3 K/mm3 (4.8-10.8)
[2025-01-31 06:29] LABS: Albumin Level 3.8 g/dl (3.5-5.0); Chloride 100 mmol/L (98-107); Sodium 132 mmol/L (136-145)
[2025-01-31 06:31] LABS: Alanine Aminotransferase 76 U/L (12-78); Aspartate Amino Transferase 58 U/L (17-59); Bilirubin,Total 0.7 mg/dl (0.2-1.3); Blood Urea Nitrogen 74 mg/dl (9-20); Creatinine Clearance Estimated 21 mL/min (50-200); Estimated Glomerular Filt Rate 17 ml/min (>60); GFR (African American) 20 ML/MIN (>60)
[2025-01-31 06:32] LABS: Albumin/Globulin Ratio 1.2 (1.1-1.8); Alkaline Phosphatase 184 U/L (38-126); Calcium 8.6 mg/dl (8.4-10.2); Carbon Dioxide 24 mmol/L (22.0-30.0); Globulin 3.3 g/dL (1.3-3.2); Glucose 58 mg/dl (74-100); Magnesium 2.4 mg/dl (1.6-2.3); Total Protein,Serum 7.1 g/dl (6.3-8.2)
[2025-01-31 06:38] LABS: Troponin I 0.06 ng/ml (0.00-0.034)
--- NOTE | 2025-01-31 06:59 | PC.NURSE ---
Hospitalist was notified of pt blood glucose of 64 and pt being npo. He was ok with giving apple juice and to recheck sugar.
[2025-01-31 07:00] LABS: POC Glucose,Bedside 60 (70-110)
[2025-01-31 07:36] LABS: NT Pro Brain Natriuretic Pep. 18600 pg/mL (0-125)
[2025-01-31] MEDS: CLOPIDOGREL 75MG TAB 75 MG PO (08:35)
[2025-01-31] MEDS: ASPIRIN EC 81MG TABLET 81 MG PO (08:35)
[2025-01-31] MEDS: METOPROLOL SUCCINATE XL 25MG TABLET 25 MG PO (08:35)
[2025-01-31 08:49] LABS: POC Glucose,Bedside 72 (70-110)
--- NOTE | 2025-01-31 09:06 | ECG_ITS ---
APPROVED REPORT Exam: Resting ECG HR:121 bpm ECG Measurements Heart Rate 121 AXES QRSd 92 QRS 32 QT 307 T 98 QTc 379 Conclusion Tachycardia - flutter is a possiblity, but P waves noted to be one to one. Would recommend adenosine challeng to help diagnosis POSSIBLE ANTERIOR MYOCARDIAL INFARCTION , PROBABLY OLD [30 ms Q WAVE IN V3/V4, OR R < 0.2 mV IN V4] INFERIOR MYOCARDIAL INFARCTION , PROBABLY OLD [40+ ms Q WAVE AND/OR ST/T ABNORMALITY IN II/aVF] ABNORMAL ECG UNCONFIRMED REPORT Electronically signed by : Roc Fajardo MD 01/31/2025 16:21:33
--- NOTE | 2025-01-31 10:10 | EXP.CARD.PN ---
Subjective Subjective Date: 01/31/25 Time: 08:30 Principal diagnosis: HFrEF, CKD Interval history: Questionable A-fib RVR versus sinus tach at a rate of 120 noted on EKG this morning. Patient is maintaining an oxygen saturation of 100% on 2 L nasal cannula. Blood pressure stable at 120/73. Denies chest pain or shortness of breath. Appears dry on exam. Morning labs reviewed. Unable to tolerate increased beta-blockers due to hypotension, diaphoresis and shortness of breath. Exam Data for Last 24 hours Vital signs and Labs for Last 24 Hours: Temp Pulse Resp BP Pulse Ox O2 Del Method O2 Flow Rate 98.3 F 120 H 18 120/73 100 Nasal Cannula 2 01/31/25 07:18 01/31/25 08:00 01/31/25 07:18 01/31/25 07:18 01/31/25 07:18 01/31/25 08:00 01/31/25 08:00 Laboratory Results - last 24 hr 01/30/25 10:47: Ur Random Urea Nitrogn 363, Urine Creatinine 59, Urine Sodium 28.0 L 01/30/25 11:47: POC Glucose 146 H 01/30/25 15:00: Sodium 130 L, Potassium 4.4, Chloride 93 L, Carbon Dioxide 25, Anion Gap 16.4 H, BUN 69 H, Creatinine 3.80 H, Estimated Creat Clear 20, Estimated GFR 16 L*, Est GFR ( Amer) 19 L*, Glucose 185 H D, Calcium 8.7 01/30/25 15:15: POC Glucose 184 H 01/30/25 20:03: POC Glucose 270 H 01/31/25 06:06: WBC 8.3, RBC 4.56 L, Hgb 12.8 L, Hct 38.0 L, MCV 83.3, MCH 28.1, MCHC 33.7, RDW 15.1, Plt Count 314, MPV 9.4, Neut % (Auto) 68.0, Lymph % (Auto) 19.3, [place] % (Auto) 10.6 H, Eos % (Auto) 0.7, Baso % (Auto) 0.7, Neut # (Auto) 5.7, Lymph # (Auto) 1.6, [place] # (Auto) 0.9, Eos # (Auto) 0.1, Baso # (Auto) 0.1, Sodium 132 L, Potassium 4.0, Chloride 100, Carbon Dioxide 24, Anion Gap 12.0, BUN 74 H, Creatinine 3.60 H, Estimated Creat Clear 21, Estimated GFR 17 L*, Est GFR ( Amer) 20 L, Glucose 58 L D, Calcium 8.6, Magnesium 2.4 H D, Total Bilirubin 0.7, AST 58, ALT 76, Alkaline Phosphatase 184 H, Troponin I 0.06 H, NT-Pro-B Natriuret Pep 80089 H, Total Protein 7.1, Albumin 3.8, Globulin 3.3 H, Albumin/Globulin Ratio 1.2 01/31/25 06:10: POC Glucose 64 L 01/31/25 06:49: POC Glucose 60 L 01/31/25 08:38: POC Glucose 72 I & O for Last 24 hours: Intake & Output 01/28/25 01/29/25 01/30/25 01/31/25 23:59 23:59 23:59 23:59 Intake Total 1530 / 1780 1000 / 1400 2135 / 2135 Output Total 1650 / 1950 800 / 800 950 / 950 600 / 600 Balance -120 / -170 200 / 600 1185 / 1185 -600 / -600 Weight 175 lb 11.335 oz 175 lb 4.28 oz 181 lb 3.2 oz 178 lb 1.6 oz Constitutional Constitutional: no acute distress *Routine Respiratory Exam Respiratory: Present CTA bilaterally and symmetric chest movement *Routine Cardiovascular Exam Cardiovascular: Present RRR, Normal S1 and Normal S2 *Routine Abdominal Exam Abdominal: Present soft and normoactive bowel sounds; Absent tenderness *Routine Extremities Exam Extremities: Present full ROM and normal capillary refill; Absent edema *Routine Skin Exam Skin: Present intact, dry and warm Detailed Neck Exam: Thyroids Thyroid: Absent bruit Progress Note: A&P Assessment and plan (1) Acute on chronic HFrEF (heart failure with reduced ejection fraction): Status: Acute (2) Atrial fibrillation with RVR: Status: Acute (3) Ischemic cardiomyopathy: Status: Acute (4) Hypothyroidism (acquired): Status: Acute (5) DM type 2 (diabetes mellitus, type 2): Status: Acute (6) Pulmonary HTN: Status: Acute (7) CKD stage 4 due to type 2 diabetes mellitus: Status: Acute (8) Coronary artery disease: Status: Acute (9) Presence of stent in coronary artery: Status: Acute (10) Hx of CABG: Status: Acute Assessment and Plan Assessment and Plan for All Diagnoses:: History of paroxysmal atrial fibrillation History of A-fib RVR Elevated d-dimer on admission EKG this morning shows sinus tach versus A-fib RVR at a rate of 120 On Toprol 25 mg p.o. daily. Unable to advance due to hypotension and shortness of breath Patient appears dry on exam- will give a 250 normal saline bolus x 1 to see if heart rate improves. History of hematuria on OAC. No Dig due to chronic kidney disease. No amiodarone due to no consistent anticoagulation Continue Lovenox Elevated D-dimer on admission, could not obtain CTA to rule out PE due to kidney function. Will obtain VQ scan to rule out PE Acute on chronic HFrEF Echo shows an EF of 30% Patient was volume overloaded upon presentation to hospital and has diuresed over 10 L Today patient appears euvolemic/dry-dry mucous membranes, no lower extremity edema present, lung sounds clear, no pleural effusions or pericardial effusion noted on chest x-ray 01/29 Continue to hold DEVI/ARB/Arni due to chronic kidney disease. Can continue Toprol 25 mg and Jardiance 10 mg daily. Will restart hydralazine and Imdur when blood pressure can tolerate. Patient was previously in LifeVest but was nonadherent due to discomfort. Patient will need consideration for AICD after 90 days of guideline directed medical therapy Coronary artery disease Status post CABG in 2018 Status post stenting Last drug-eluting stent placed 09/2024 Left heart cath 12/27/2024 showed stable coronary disease. Continue aspirin, Plavix and statin Chronic kidney disease Bilateral renals were normal on cath 12/2024 Baseline creatinine 2.2-2.4. Creatinine climbed to 3.8 with a BUN of 74 after diuresis Continue to hold diuretics CV summary 01/31/2025: Patient remains tachycardic at a rate of 120, normal sinus versus A-fib RVR. On today's exam patient appears euvolemic-dry. Will give 250 normal saline bolus to see if heart rate responds. Will obtain VQ scan to rule out PE in the setting of elevated D-dimer on admission. Keep NPO after midnight for possible CLAUDINE/Cardioversion tomorrow. Cardiac meds: Aspirin 81 mg p.o. daily Atorvastatin 40 mg p.o. daily Plavix 75 mg daily Lovenox 80 mg subcu every 24 hours Toprol 25 mg daily
[2025-01-31] MEDS: 0.9 % SODIUM CHLORIDE 1000ML 250 ML IV (10:11)
--- NOTE | 2025-01-31 10:27 | NM_ITS ---
FINAL REPORT CLINICAL HISTORY: Persistent tachycardia, SOB 2:35 pm 36.2 mci tc DTPA orally inhaled 3:05 pm 8.30 mci tc MAA injected into lt upper arm FINDINGS: NUCLEAR MEDICINE VENTILATION AND PERFUSION IMAGING TECHNIQUE: V/Q scan is performed utilizing 36.2 technetium 99 M DTPA aerosol and IV administration of 8.30 technetium 99 M MAA. Images were obtained in AP, PA, lateral, and oblique projections. FINDINGS There is normal distribution of the radiopharmaceutical. There is no evidence of segmental or subsegmental mismatch perfusion defects. Moderate cardiomegaly is noted. IMPRESSION: Low probability for pulmonary embolus. Reviewed, Interpreted and Dictated by Duran Macias MD Transcribed by China Shahid Authenticated and [facility]
[2025-01-31 11:42] LABS: POC Glucose,Bedside 68 (70-110)
[2025-01-31] MEDS: 0.9 % SODIUM CHLORIDE 1000ML 250 ML 999 ML IV (13:20)
--- NOTE | 2025-01-31 13:38 | XR_ITS ---
FINAL REPORT CLINICAL HISTORY: SOB, eval for edema COMPARISON: 01/29/2025 FINDINGS: A single view of the chest was obtained. The heart is mildly enlarged. Multiple median sternotomy wires are noted. The lungs are clear. There is no pleural effusion. There is no pneumothorax. There is no acute osseous abnormality. IMPRESSION: No acute pulmonary abnormality. Reviewed, Interpreted and Dictated by Duran Macias MD Transcribed by China Shahid Authenticated and [facility]
[2025-01-31] MEDS: ISOTOPE TC MAA;1 DOE (UP TO 45 MCI) 1 DOSE IV (15:10)
[2025-01-31] MEDS: ISOTOPE DTPA(AEROSOL);1 DOSE (UP TO 75 MCI) IV (15:10)
[2025-01-31] MEDS: SODIUM CHLORIDE 0.9% 10ML SYR (RAD ONLY) 10 ML IV (15:10)
[2025-01-31 15:46] LABS: POC Glucose,Bedside 114 (70-110)
[2025-01-31 16:02] LABS: Chloride 99 mmol/L (98-107)
[2025-01-31 16:03] LABS: Potassium 4.6 mmoL/L (3.5-5.1); Sodium 134 mmol/L (136-145)
[2025-01-31 16:05] LABS: Blood Urea Nitrogen 70 mg/dl (9-20); Creatinine Clearance Estimated 21 mL/min (50-200); Estimated Glomerular Filt Rate 17 ml/min (>60); GFR (African American) 20 ML/MIN (>60)
[2025-01-31 16:06] LABS: Anion Gap 14.6 mEq/L (5-15); Calcium 8.9 mg/dl (8.4-10.2); Carbon Dioxide 25 mmol/L (22.0-30.0); Glucose 137 mg/dl (74-100)
--- NOTE | 2025-01-31 16:34 | PC.NURSE ---
Pt has c/o SOA t/o the shift. O2 sats have remained 96%-100% with or without O2. Pt placed back on 2L NC for comfort. Has ambulated to toilet. Tolerated fair with soa on exertion. FSBS have been low with the exception of this afternoon which was 114. NS 0.9% 250 ml x2 boluses administered per Doe Mata order. He is currently resting in bed at this time with afternoon snack of peanut butter and crackers and juice.
[2025-01-31] MEDS: ONDANSETRON 4MG/2ML VIAL 4 MG IV (18:38)
--- NOTE | 2025-01-31 18:59 | EXP.PN ---
Subjective *Date: 01/31/25 *Time: 20:14 Interval history: Patient continues to have intermittent shortness of breath, still in a flutter RVR. CLAUDINE unable to be done today as no availability, plan for CLAUDINE cardioversion tomorrow. N.p.o. at midnight. Exam Data for Last 24 hours Vital signs and Labs for Last 24 Hours: Temp Pulse Resp BP Pulse Ox O2 Del Method O2 Flow Rate 97.9 F 110 H 18 122/92 H 94 L Nasal Cannula 2 01/31/25 16:00 01/31/25 16:00 01/31/25 16:00 01/31/25 16:00 01/31/25 16:00 01/31/25 17:00 01/31/25 17:00 Laboratory Results - last 24 hr 01/30/25 20:03: POC Glucose 270 H 01/31/25 06:06: WBC 8.3, RBC 4.56 L, Hgb 12.8 L, Hct 38.0 L, MCV 83.3, MCH 28.1, MCHC 33.7, RDW 15.1, Plt Count 314, MPV 9.4, Neut % (Auto) 68.0, Lymph % (Auto) 19.3, [place] % (Auto) 10.6 H, Eos % (Auto) 0.7, Baso % (Auto) 0.7, Neut # (Auto) 5.7, Lymph # (Auto) 1.6, [place] # (Auto) 0.9, Eos # (Auto) 0.1, Baso # (Auto) 0.1, Sodium 132 L, Potassium 4.0, Chloride 100, Carbon Dioxide 24, Anion Gap 12.0, BUN 74 H, Creatinine 3.60 H, Estimated Creat Clear 21, Estimated GFR 17 L*, Est GFR ( Amer) 20 L, Glucose 58 L D, Calcium 8.6, Magnesium 2.4 H D, Total Bilirubin 0.7, AST 58, ALT 76, Alkaline Phosphatase 184 H, Troponin I 0.06 H, NT-Pro-B Natriuret Pep 45740 H, Total Protein 7.1, Albumin 3.8, Globulin 3.3 H, Albumin/Globulin Ratio 1.2 01/31/25 06:10: POC Glucose 64 L 01/31/25 06:49: POC Glucose 60 L 01/31/25 08:38: POC Glucose 72 01/31/25 11:17: POC Glucose 68 L 01/31/25 15:24: POC Glucose 114 H 01/31/25 15:48: Sodium 134 L, Potassium 4.6, Chloride 99, Carbon Dioxide 25, Anion Gap 14.6, BUN 70 H, Creatinine 3.60 H, Estimated Creat Clear 21, Estimated GFR 17 L*, Est GFR ( Amer) 20 L, Glucose 137 H D, Calcium 8.9 I & O for Last 24 hours: Intake & Output 01/28/25 01/29/25 01/30/25 01/31/25 23:59 23:59 23:59 23:59 Intake Total 1530 / 1780 1000 / 1400 2135 / 2135 700 / 700 Output Total 1650 / 1950 800 / 800 950 / 950 800 / 800 Balance -120 / -170 200 / 600 1185 / 1185 -100 / -100 Weight 79.7 kg 79.5 kg 82.191 kg 80.785 kg Constitutional Constitutional: no acute distress *Routine HEENT Exam Head: Present normocephalic Eye: Present EOMI and PERRL ENT: Present mucous membranes moist *Routine Neck Exam Neck: Present supple; Absent lymphadenopathy *Routine Respiratory Exam Respiratory: Present CTA bilaterally *Routine Cardiovascular Exam Cardiovascular: Present tachycardia *Routine Abdominal Exam Abdominal: Present soft and normoactive bowel sounds; Absent tenderness *Routine Extremities Exam Extremities: Absent cyanosis, clubbing or edema *Routine Skin Exam Skin: Present warm; Absent rash *Routine Neurological Exam Neurological: Present alert and oriented X3 Assessment and Plan *Assessment and plan (1) Acute on chronic HFrEF (heart failure with reduced ejection fraction): Status: Acute Category: Medical Code(s): I50.23 - Acute on chronic systolic (congestive) heart failure (2) Atrial fibrillation with RVR: Status: Acute Category: Medical Code(s): I48.91 - Unspecified atrial fibrillation (3) Ischemic cardiomyopathy: Status: Acute Category: Medical Code(s): I25.5 - Ischemic cardiomyopathy (4) Hypothyroidism (acquired): Status: Acute Category: Medical Code(s): E03.9 - Hypothyroidism, unspecified (5) DM type 2 (diabetes mellitus, type 2): Status: Acute Qualifiers: Diabetes mellitus complication status: with other specified complication Diabetes mellitus long filler cigar roller machine insulin use: without long filler cigar roller machine use Qualified Code(s): E11.69 - Type 2 diabetes mellitus with other specified complication Category: Medical Code(s): E11.9 - Type 2 diabetes mellitus without complications (6) Pulmonary HTN: Status: Acute Category: Medical Code(s): I27.20 - Pulmonary hypertension, unspecified (7) CKD stage 4 due to type 2 diabetes mellitus: Status: Acute Category: Medical Code(s): E11.22 - Type 2 diabetes mellitus with diabetic chronic kidney disease; N18.4 - Chronic kidney disease, stage 4 (severe) (8) Coronary artery disease: Status: Acute Qualifiers: Associated angina: with other forms of angina Coronary Disease-Associated Artery/Lesion type: bypass graft [place] vs. transplanted heart: [place] heart Qualified Code(s): I25.708 - Atherosclerosis of coronary artery bypass graft(s), unspecified, with other forms of angina pectoris Category: Medical Code(s): I25.10 - Atherosclerotic heart disease of [place] coronary artery without angina pectoris (9) Presence of stent in coronary artery: Status: Acute Category: Surgical Code(s): Z95.5 - Presence of coronary angioplasty implant and graft (10) Hx of CABG: Status: Acute Category: Surgical Code(s): Z95.1 - Presence of aortocoronary bypass graft Plan Zackary Carrasco is a 74-year-old male with a medical history significant for A-fib, HFrEF, CAD/CABG, NSTEMI, CKD stage IV, hypertension, type 2 diabetes, BPH, GERD who presents with progressive shortness of breath, leg swelling. Patient was recently admitted to our facility last month for similar symptoms. He states he has been adherent to his medications. In the ED, patient's heart rate 120s/130s with A-fib. Patient was initiated on amiodarone drip. Workup also consistent with HFrEF exacerbation, BNP 15,400 with gross signs of volume overload. Case discussed with ED provider and decision was made to admit patient for A-fib RVR, HFrEF exacerbation. #Acute on chronic HFrEF # A-flutter RVR ? Presented with progressive shortness of breath, volume overload. BNP 15,400. Patient states he has been adherent to his medications, though he lives alone and family questions this. ? Initially started amiodarone drip for A-fib RVR, but transition off as patient is chronic A-fib. Went into transient cardiogenic shock with IV Lopressor 5, reversed with glucagon. RVR is likely, but still in the setting of decompensation. ? Diuresed well with IV Bumex diuresis. On hold for now due to LIANE. Patient is euvolemic. ? Throughout hospital course, patient has exhibited poor tolerance to beta-blockers for a flutter RVR. Even increasing metoprolol tartrate to 50 mg twice daily caused shortness of breath, diaphoresis, hypotension which resolved with 250 cc bolus. Patient is continues to have intermittent shortness of breath in the setting of A-fib RVR and likely from such. I spoke to Dr. Martins extensively, we will plan for CLAUDINE and cardioversion tomorrow. Could not be done today as no availability for CLAUDINE. Patient is not a is not is not candidate for amiodarone (chronic A-fib), digoxin (CKD stage IV), diltiazem (HFrEF). Patient patient does have a history of hematuria with anticoagulation, but has been asymptomatic from that regard with therapeutic Lovenox during hospitalization. I do believe that the pros of cardioversion outweigh the cons of possible hematuria that likely needs further evaluation by urology. ? Cardiology ordered 250 cc bolus x 2 today with minimal improvement in HR. ? V/Q scan low showed probability for pulmonary embolism. Cannot get CTA due to CKD stage IV. ? N.p.o. at midnight, planning for CLAUDINE and cardioversion for A-fib RVR tomorrow. Could not be done today as no availability for CLAUDINE. ? Given ATN, holding Jardiance, Imdur, spironolactone, hydralazine. Continue home metoprolol succinate 25 mg. ? Continue therapeutic Lovenox, plan to transition to DOAC if cardioversion successful tomorrow. ? Cardiology considering AICD versus referral to advanced heart failure clinic in [place]. Patient nonadherent with LifeVest due to discomfort. #LIANE on CKD stage IV #ATN ? Creatinine improved to 3.6 today from 3.8. Baseline around 2.5. Likely from overdiuresis initially and cardiogenic shock. ? I do suspect persistent A-fib RVR with HFrEF is causing lower perfusion state and mild cardiogenic shock contributing to ATN. Had been doing well with milrinone. Plan for cardioversion tomorrow. ? Holding diuretics, GDMT as above. Patient tolerating p.o. intake. ? Will allow ATN to self resolve without further diuretics or IV fluids. Making urine. ? Follow-up CMP in the morning. #Possible community-acquired pneumonia ? Stable on room air. No leukocytosis, signs of sepsis. Finished 5-day course of levofloxacin. #CAD s/p CABG 2017, LUKE 2021 #CKD stage IV ? Continue aspirin 81 mg, clopidogrel 75 mg, atorvastatin 80 mg. #Hypothyroidism: TSH subtherapeutic 11.8. Continue home levothyroxine 88 mcg. #Type 2 diabetes ? Lantus decreased to 25 units nightly due to well-controlled morning glucose. Holding Jardiance 10 mg daily. ? ACHS glucose checks, LDSSI. #BPH: Continue home finasteride 5 mg. #GERD: Continue home PPI. DNR/DNI Therapeutic Lovenox Diabetic diet
[2025-01-31] MEDS: ENOXAPARIN 80MG/0.8ML SYRINGE 80 MG SUBCUT (20:03)
[2025-01-31] MEDS: ATORVASTATIN 40MG TABLET 40 MG PO (20:03)
[2025-01-31] MEDS: PANTOPRAZOLE 40MG TABLET 40 MG PO (20:03)
[2025-01-31 20:13] LABS: POC Glucose,Bedside 279 (70-110)
[2025-01-31] MEDS: humaLOG 100 UNITS/ML 10ML VIAL (SSI) SUBCUT (20:50)
[2025-01-31] MEDS: INSULIN GLARGINE 100 UNITS/ML 10ML VIAL 15 UNIT SUBCUT (20:50)
[2025-01-31] MEDS: BELLADONNA ALKALOIDS 60 ML ML PO (20:50)
--- NOTE | 2025-01-31 21:45 | PC.NURSE ---
LUIS Byrd received report from LUIS Mariscal and patient was moved to [place].
[2025-01-31] MEDS: MILRINONE LACTATE 20 MG in 0.9 % SODIUM CHLORIDE 80 ML 3.03 MG IV (21:58)
[2025-01-31 22:05] LABS: Lactic Acid 2.1 mmol/L (0.7-2.1)
--- NOTE | 2025-01-31 22:39 | PC.NURSE ---
Addendum entered by Rochelle Jones RN 02/01/25 06:30: patient done well t/o on 1L NC - then weaned to RA at 0630. patient has denied any abd pain, SOA, and hasn't appeared to be in respiratory distress. patient has been ST 110-130 and normotensive t/o night. LS clear. No edema noted. Stated he generally felt better. Hospitalist to bedside several times tonight to check on patient status. NPO since 02/01 0000. Original Note: weaned patient oxygen from 2L NC to 1L NC with sats maintaining >95% and no c/o SOA.
--- NOTE | 2025-01-31 23:59 | EXP.EVENT.NO ---
On my evaluation of patient around 11 PM, he looks uncomfortable and mildly diaphoretic. He also was endorsing new abdominal pain that did not improve with GI cocktail. He continued to endorse shortness of breath. Vital signs stable, normal O2 saturations. Lactic acid normal. However, given these symptoms I was concerned for low perfusion state/cardiogenic shock in the setting of HFrEF and A-flutter RVR. Started milrinone drip at 0.125 mcg. Evaluated patient 1 hour after starting milrinone, he looks a lot more comfortable without abdominal pain or shortness of breath. No diaphoresis. Will continue milrinone until hopeful CLAUDINE and cardioversion in the morning.
[2025-02-01] VITALS (29 sets, daily range): BP systolic 93–143; BP diastolic 55–95; PULSE 69–125; RESP 16–27; TEMP 36.1–36.8; O2SAT 95–100; BMI 26.6
--- NOTE | 2025-02-01 01:26 | PC.NURSE ---
patient made inappropriate comments to this RN stating can you look at my balls? . this RN asked why? . patient stated they're itchy . this RN left the room and got Tahira, SRNA to be witness in the room because the patient was very touchy earlier in the shift. patient was gave powder for his privates and voiced no other needs at this time.
[2025-02-01 05:17] LABS: POC Glucose,Bedside 76 (70-110)
[2025-02-01] MEDS: LEVOTHYROXINE 88MCG (0.088MG) TAB 88 MCG PO (06:22)
[2025-02-01 06:29] LABS: Basophils % 0.6 % (0.1-2.0); Eosinophils # 0.1 Kmm3 (0.0-0.4); Eosinophils % 1.1 % (0.1-12.0); Hemoglobin 12.1 g/dL (14.1-18.0); Lymphocytes % 15.7 % (10-50); Mean Corpuscular HGB Conc 32.7 g/dL (31.8-35.4); Mean Corpuscular Hemoglobin 27.9 pg (27.0-31.2); Mean Corpuscular Volume 85.3 fl (80-94); Monocytes # 0.8 K/mm3 (0.1-1.0); Monocytes % 12.6 % (1.7-9.3); Neutrophils # 4.6 K/mm3 (1.8-7.8); Neutrophils % 69.5 % (37.0-80.0); Nucleated Red Blood Cells # 0 10^3/uL; Nucleated Red Blood Cells % 0 %; Platelet Count 283 K/mm3 (142-424); Red Blood Count 4.34 M/mm3 (4.60-6.20); Red Cell Distribution Width 15.4 % (11.5-17.5); Red Cell Distribution Width-SD 47.9 fL; White Blood Count 6.6 K/mm3 (4.8-10.8)
[2025-02-01 06:33] LABS: Lactic Acid 0.8 mmol/L (0.7-2.1)
[2025-02-01 06:34] LABS: Albumin Level 3.5 g/dl (3.5-5.0); Chloride 101 mmol/L (98-107)
[2025-02-01 06:35] LABS: Potassium 4.3 mmoL/L (3.5-5.1); Sodium 134 mmol/L (136-145)
[2025-02-01 06:37] LABS: Alanine Aminotransferase 76 U/L (12-78); Albumin/Globulin Ratio 1.1 (1.1-1.8); Alkaline Phosphatase 195 U/L (38-126); Anion Gap 12.3 mEq/L (5-15); Aspartate Amino Transferase 54 U/L (17-59); Bilirubin,Total 0.6 mg/dl (0.2-1.3); Blood Urea Nitrogen 69 mg/dl (9-20); Carbon Dioxide 25 mmol/L (22.0-30.0); Creatinine Clearance Estimated 22 mL/min (50-200); Estimated Glomerular Filt Rate 18 ml/min (>60); GFR (African American) 22 ML/MIN (>60); Globulin 3.3 g/dL (1.3-3.2); Total Protein,Serum 6.8 g/dl (6.3-8.2)
[2025-02-01 06:38] LABS: Calcium 8.7 mg/dl (8.4-10.2); Glucose 72 mg/dl (74-100); Magnesium 2.4 mg/dl (1.6-2.3)
[2025-02-01] MEDS: ASPIRIN EC 81MG TABLET 81 MG PO (08:38)
[2025-02-01] MEDS: CLOPIDOGREL 75MG TAB 75 MG PO (08:38)
[2025-02-01] MEDS: METOPROLOL SUCCINATE XL 25MG TABLET 25 MG PO (08:38)
--- NOTE | 2025-02-01 08:41 | CA_ITS ---
APPROVED REPORT EXAM: Comprehensive 2D, Doppler, and color-flow Echocardiogram Hotel Manager: Roxana De La Torre RVT Ht: 5 ft 8 in Wt: 180lbs BSA: 1.95 BP: 132/65 mmHg Indications: A-FIB,CARDIOVERSION,CM,CAD,CABG Echo Enhancing Agent Indication: Rule out thrombus Agent(s) / Amount(s) Used: Definity 2 cc Procedure After obtaining informed consent, patient underwent transesophageal echo in the [facility] Surgery Suite. Type of Sedation : MAC Sedation was administered by Lalito Moss [email or web address] Sedation start time: 11:30 Case end Time: 11:45 Transesophageal probe was inserted and advanced into esophagus without difficulty by Dr. Darwin Lees. Echo enhancement indication: R/O Thrombus. Echo enhancement agent administered: Definity The CLAUDINE was performed without complications. Synchronized Cardioversion acheived with 150 Joules after 1 attempt(s). Rhythm following Synchronized Cardioversion: Normal Sinus Rhythm Throughout the procedure, the blood pressure, pulse oximetry, cardiac rhythm, and rate were monitored. The patient tolerated the procedure without adverse effects. Recovery from conscious sedation was uneventful and vital signs were stable. Left Ventricle The left ventricle is normal size. The left ventricular systolic function is severely reduced. There is increased LV wall thickness. There is severe global hypokinesis present. ??? 50%. Right Ventricle Right ventricle is moderate to severely dilated. Right ventricle is severely hypokinetic. Atria The left atrium is dilated. No thrombus is visualized in the left atrium or appendage. Spontaneous echo contrast is present. Administration of ultrasound enhancing agent demonstrates full opacification of the left atrial appendage with no evidence of filling defects. The right atrium is dilated. Aortic Valve The aortic valve is mildly thickened. The aortic valve is trileaflet. Trace aortic regurgitation. There is no aortic valvular stenosis. Mitral Valve The mitral valve is normal in structure. No evidence of mitral valve stenosis. Mild mitral regurgitation. Tricuspid Valve Tricuspid valve is grossly normal in structure and function. Mild tricuspid regurgitation. RVSP is 50 mmHg plus RA pressure. Pulmonic Valve The pulmonary valve is normal in structure. Trace pulmonic regurgitation. Great Vessels The aortic root is normal in size. The ascending aorta is normal in size. Pericardium There is no pericardial effusion. Other Information Study Quality: Fair Conclusion Severe reduction in LV systolic function (LVEF 10-15%). Moderate to severe RV dilation with severe reduction in RV function. Biatrial dilation. Mild MR, mild TR. No evidence of LA or BIANKA thrombus. Spontaneous echo contrast is present, but administration of ultrasound enhancing agent demonstrates full opacification of the left atrial appendage with no evidence of filling defects. Once CLAUDINE demonstrated no evidence of LA or BIANKA thrombus, the patient underwent DCCV with 150 J, after which he successfully cardioverted from atrial fibrillation to normal sinus rhythm (HR 70s). He was subsequently transferred back in stable condition to the ICU. Electronically signed by : Cornelia Lees MD 02/03/2025 13:14:50
--- NOTE | 2025-02-01 08:56 | EXP.CARD.PN ---
Subjective Subjective Date: 02/01/25 Time: 08:00 Principal diagnosis: HFrEF, CKD Interval history: Patient resting comfortably this morning. Denies chest pain or shortness of breath. Morning labs reviewed and stable. On milrinone drip. Awaiting CLAUDINE cardioversion Exam Data for Last 24 hours Vital signs and Labs for Last 24 Hours: Temp Pulse Resp BP Pulse Ox O2 Del Method O2 Flow Rate 98.2 F 121 H 24 94/57 L 95 Room Air 1 02/01/25 08:00 02/01/25 08:00 02/01/25 08:00 02/01/25 08:00 02/01/25 08:00 02/01/25 08:00 02/01/25 06:20 Laboratory Results - last 24 hr 01/31/25 11:17: POC Glucose 68 L 01/31/25 15:24: POC Glucose 114 H 01/31/25 15:48: Sodium 134 L, Potassium 4.6, Chloride 99, Carbon Dioxide 25, Anion Gap 14.6, BUN 70 H, Creatinine 3.60 H, Estimated Creat Clear 21, Estimated GFR 17 L*, Est GFR ( Amer) 20 L, Glucose 137 H D, Calcium 8.9 01/31/25 20:06: POC Glucose 279 H 01/31/25 21:40: Lactate 2.1 02/01/25 05:09: POC Glucose 76 02/01/25 05:28: WBC 6.6, RBC 4.34 L, Hgb 12.1 L, Hct 37.0 L, MCV 85.3, MCH 27.9, MCHC 32.7, RDW 15.4, Plt Count 283, MPV 10.0, Neut % (Auto) 69.5, Lymph % (Auto) 15.7, [place] % (Auto) 12.6 H, Eos % (Auto) 1.1, Baso % (Auto) 0.6, Neut # (Auto) 4.6, Lymph # (Auto) 1.0, [place] # (Auto) 0.8, Eos # (Auto) 0.1, Baso # (Auto) 0.0, Sodium 134 L, Potassium 4.3, Chloride 101, Carbon Dioxide 25, Anion Gap 12.3, BUN 69 H, Creatinine 3.40 H, Estimated Creat Clear 22, Estimated GFR 18 L*, Est GFR ( Amer) 22 L, Glucose 72 L D, Lactate 0.8, Calcium 8.7, Magnesium 2.4 H, Total Bilirubin 0.6, AST 54, ALT 76, Alkaline Phosphatase 195 H, Total Protein 6.8, Albumin 3.5, Globulin 3.3 H, Albumin/Globulin Ratio 1.1 I & O for Last 24 hours: Intake & Output 01/29/25 01/30/25 01/31/25 02/01/25 23:59 23:59 23:59 23:59 Intake Total 1000 / 1400 2135 / 2135 1180 / 1180 25.553 / 25.553 Output Total 800 / 800 950 / 950 900 / 900 225 / 225 Balance 200 / 600 1185 / 1185 280 / 280 -199.447 / -199.447 Weight 175 lb 4.28 oz 181 lb 3.2 oz 178 lb 1.6 oz 180 lb 3.2 oz Constitutional Constitutional: no acute distress *Routine Respiratory Exam Respiratory: Present CTA bilaterally and symmetric chest movement *Routine Cardiovascular Exam Cardiovascular: Present Normal S1, Normal S2, tachycardia and irregular rhythm *Routine Abdominal Exam Abdominal: Present soft and normoactive bowel sounds; Absent tenderness *Routine Extremities Exam Extremities: Present full ROM and normal capillary refill; Absent edema *Routine Skin Exam Skin: Present intact, dry and warm Detailed Neck Exam: Thyroids Thyroid: Absent bruit Progress Note: A&P Assessment and plan (1) Acute on chronic HFrEF (heart failure with reduced ejection fraction): Status: Acute (2) Atrial fibrillation with RVR: Status: Acute (3) Ischemic cardiomyopathy: Status: Acute (4) Hypothyroidism (acquired): Status: Acute (5) DM type 2 (diabetes mellitus, type 2): Status: Acute (6) Pulmonary HTN: Status: Acute (7) CKD stage 4 due to type 2 diabetes mellitus: Status: Acute (8) Coronary artery disease: Status: Acute (9) Presence of stent in coronary artery: Status: Acute (10) Hx of CABG: Status: Acute Assessment and Plan Assessment and Plan for All Diagnoses:: History of paroxysmal atrial fibrillation History of A-fib RVR Elevated d-dimer on admission EKG this morning shows sinus tach versus A-fib RVR at a rate of 120 On Toprol 25 mg p.o. daily. Unable to advance due to hypotension and shortness of breath Patient given 500 normal saline bolus yesterday without improvement in heart rate History of hematuria on OAC. No Dig due to chronic kidney disease. No amiodarone due to no consistent anticoagulation Continue Lovenox Elevated D-dimer on admission, VQ scan low probability for PE Will proceed with CLAUDINE cardioversion today for A-fib RVR Acute on chronic HFrEF Echo shows an EF of 30% Patient was volume overloaded upon presentation to hospital and has diuresed over 10 L Today patient appears euvolemic/dry-dry mucous membranes, no lower extremity edema present, lung sounds clear, no pleural effusions or pericardial effusion noted on chest x-ray 01/31 Continue to hold DEVI/ARB/Arni due to chronic kidney disease. Can continue Toprol 25 mg and Jardiance 10 mg daily. Will restart hydralazine and Imdur when blood pressure can tolerate. Patient was previously in LifeVest but was nonadherent due to discomfort. Patient will need consideration for AICD after 90 days of guideline directed medical therapy Coronary artery disease Status post CABG in 2018 Status post stenting Last drug-eluting stent placed 09/2024 Left heart cath 12/27/2024 showed stable coronary disease. Continue aspirin, Plavix and statin Chronic kidney disease Bilateral renals were normal on cath 12/2024 Baseline creatinine 2.2-2.4. Creatinine climbed to 3.8 with a BUN of 74 after diuresis Continue to hold diuretics CV summary 02/01/2025: CLAUDINE/cardioversion pending Cardiac meds: Aspirin 81 mg p.o. daily Atorvastatin 40 mg p.o. daily Plavix 75 mg daily Lovenox 80 mg subcu every 24 hours Toprol 25 mg daily
--- NOTE | 2025-02-01 11:01 | ECG_ITS ---
APPROVED REPORT Exam: Resting ECG HR:124 bpm ECG Measurements Heart Rate 124 AXES QRSd 102 QRS 94 QT 304 T 0 QTc 378 Conclusion ATRIAL FLUTTER/TACHYCARDIA WITH RAPID VENTRICULAR RESPONSE BORDERLINE RIGHT AXIS DEVIATION [QRS AXIS > 90] POSSIBLE ANTERIOR MYOCARDIAL INFARCTION , OF INDETERMINATE AGE [30 ms Q WAVE IN V3/V4, OR R < 0.2 mV IN V4] INFERIOR MYOCARDIAL INFARCTION , PROBABLY OLD [40+ ms Q WAVE AND/OR ST/T ABNORMALITY IN II/aVF] ST DEPRESSION, CONSIDER SUBENDOCARDIAL INJURY [0.1+ mV ST DEPRESSION] ABNORMAL ECG UNCONFIRMED REPORT Electronically signed by : Roc Fajardo MD 02/02/2025 07:53:52
[2025-02-01 11:10] LABS: POC Glucose,Bedside 71 (70-110)
--- NOTE | 2025-02-01 11:13 | EXP.ANES.CKL ---
[facility] Disclaimer: The information contained in this section may have been updated after the patient was seen, as this information can be updated by other users. Medical History Calf cramp Elevated troponin New onset of congestive heart failure CHF (congestive heart failure) Sinus tachycardia Dyspnea B12 deficiency Painful urination Screening for prostate cancer Screening for HIV (human immunodeficiency virus) Encounter for HCV screening test for low risk patient Colon cancer screening Right flank pain Proteinuria Foreign body in left ear Hearing loss LOM (left otitis media) Dermatitis Tympanosclerosis, right ear Left serous otitis media Acute left otitis media Dizziness Otitis media Left elbow fracture Decreased mobility Right hip pain Acute cystitis without hematuria Dysuria Injury of left elbow Injury due to fall Left elbow pain Laceration of lip Inguinal hernia bilateral, non-recurrent Abnormal cardiovascular stress test PAF (paroxysmal atrial fibrillation) CKD stage 4 due to type 2 diabetes mellitus Typical angina Coronary artery disease Stroke Fall Head injury COVID-19 Surgical History (Updated 01/24/25 @ 16:35 by Melissa Vu RN) History of tonsillectomy History of appendectomy Hx of cholecystectomy History of colonoscopy Presence of stent in coronary artery Hx of CABG Family History Other No significant family history Social History (Updated 01/24/25 @ 16:36 by Melissa Vu RN) Smoking Status: Former smoker tobacco type: cigarettes packs per day: 1 alcohol intake: never substance use type: denies use current occupational status: employed Travel in the last 8 weeks?: Inside the [place] household members: spouse housing: house current occupation: [employer] current occupational exposures/hazards: No caffeine: Yes [facility] Anesthesia Checklist Patient Identification Patient Identification: Arm Band Structural Data Admitted From: Home Planned Operative Procedure/s: CLAUDINE/Cardioversion Consent for Planned Operative Procedure(s) Verified: Yes Verified Documents: Surgical Consent and History and Physical NPO Status Verified Time NPO: 00:00 Additional verifications Anesthesia Reactions: No Airway Assessment Mallampati Score:: Class II C-Spine Mobility Assessed: Yes TMJ Mobility Assessed: Yes Dentition: Good Dentition Neurological Assessment Level of Consciousness: Awake, Alert and Appropriate Anesthesia Plan Anesthesia Risk discussed: Yes Anesthesia Plan: Verified ASA Class: IV Anesthesia Type: MAC
[2025-02-01] MEDS: DEFINITY US ECHO CONTRAST 2ML INJ 2 MG IV (11:42)
--- NOTE | 2025-02-01 12:07 | ECG_ITS ---
APPROVED REPORT Exam: Resting ECG HR:82 bpm ECG Measurements Heart Rate 82 AXES NE 169 P 60 QRSd 100 QRS -13 QT 377 T 120 QTc 415 Conclusion SINUS RHYTHM Late R wave progresson Old inferior changes ABNORMAL ECG UNCONFIRMED REPORT Electronically signed by : Roc Fajardo MD 02/02/2025 07:53:04
[2025-02-01] MEDS: AMIODARONE HCL 150 MG in DEXTROSE 5 % IN WATER 100 ML 618 MG IV (12:08)
[2025-02-01] MEDS: AMIODARONE HCL 900 MG in DEXTROSE 5 % IN WATER 500 ML 34.53 MG IV (12:21)
[2025-02-01] MEDS: AMIODARONE 200MG TABLET 400 MG PO ×2 (12:21→20:15)
--- NOTE | 2025-02-01 12:41 | EXP.ACUTE.PN ---
Subjective *Date: 02/01/25 *Time: 17:09 Interval history: Patient still symptomatic this morning. Feels weak with intermittent nausea, having intermittent shortness of breath however oxygenation remains good with saturations 95 to 100% on room air. Denies actual vomiting. Denies chest pain. Medical Exam Vital signs and Labs for Last 24 Hours: Vital Signs Temp Pulse Pulse Resp BP Pulse Ox O2 Del Method 02/01/25 12:30 78 16 109/70 L 97 Room Air 02/01/25 12:15 98.2 F 82 16 117/74 99 Room Air 02/01/25 12:04 98.3 F 80 18 120/73 95 Room Air 02/01/25 12:00 98.3 F 83 25 H 120/73 98 Room Air 02/01/25 11:48 75 20 96/60 L 98 Room Air 02/01/25 11:38 97 F L 72 20 99/68 L 97 Room Air 02/01/25 10:57 98.1 F 123 H 16 94/57 L 97 Room Air 02/01/25 10:00 123 H 16 143/95 H 99 Room Air 02/01/25 08:59 Room Air 02/01/25 08:53 98.2 F 123 H 16 94/57 L 98 Room Air 02/01/25 08:00 120 H 02/01/25 08:00 Room Air 02/01/25 08:00 98.2 F 121 H 24 94/57 L 95 Room Air 02/01/25 06:20 Nasal Cannula 02/01/25 06:00 124 H 119/77 02/01/25 05:00 122 H 139/92 H 02/01/25 05:00 Nasal Cannula 02/01/25 04:00 97.9 F 123 H 16 110/66 98 Nasal Cannula 02/01/25 04:00 120 H 02/01/25 03:00 125 H 16 125/63 98 Nasal Cannula 02/01/25 03:00 Nasal Cannula 02/01/25 02:00 100 Nasal Cannula 02/01/25 02:00 124 H 16 137/89 98 Nasal Cannula 02/01/25 01:00 124 H 119/88 02/01/25 00:52 Nasal Cannula 02/01/25 00:00 97.7 F 123 H 16 127/92 H 100 Nasal Cannula 02/01/25 00:00 120 H 02/01/25 00:00 100 Nasal Cannula 01/31/25 23:00 120 H 116/78 01/31/25 22:46 Nasal Cannula 01/31/25 22:30 119 H 16 124/83 100 Nasal Cannula 01/31/25 22:10 118 H 18 119/80 100 Nasal Cannula 01/31/25 21:00 Nasal Cannula 01/31/25 20:00 120 H 01/31/25 20:00 Nasal Cannula 01/31/25 20:00 97.4 F L 123 H 20 116/75 100 Nasal Cannula 01/31/25 19:00 Nasal Cannula 01/31/25 17:00 Nasal Cannula 01/31/25 16:00 120 H 01/31/25 16:00 97.9 F 110 H 18 122/92 H 94 L Nasal Cannula 01/31/25 13:00 Room Air O2 Flow Rate 02/01/25 12:30 02/01/25 12:15 02/01/25 12:04 02/01/25 12:00 02/01/25 11:48 02/01/25 11:38 02/01/25 10:57 02/01/25 10:00 02/01/25 08:59 02/01/25 08:53 02/01/25 08:00 02/01/25 08:00 02/01/25 08:00 02/01/25 06:20 1 02/01/25 06:00 02/01/25 05:00 02/01/25 05:00 1 02/01/25 04:00 1 02/01/25 04:00 02/01/25 03:00 1 02/01/25 03:00 1 02/01/25 02:00 1 02/01/25 02:00 1 02/01/25 01:00 02/01/25 00:52 1 02/01/25 00:00 1 02/01/25 00:00 02/01/25 00:00 1 01/31/25 23:00 01/31/25 22:46 1 01/31/25 22:30 1 01/31/25 22:10 2 01/31/25 21:00 2 01/31/25 20:00 01/31/25 20:00 2 01/31/25 20:00 2 01/31/25 19:00 2 01/31/25 17:00 2 01/31/25 16:00 01/31/25 16:00 2 01/31/25 13:00 Intake and Output 01/31/25 02/01/25 02/01/25 23:59 07:59 15:59 Intake Total 480 / 1180 25.553 / 43.026 17.473 / 43.026 Output Total 100 / 900 150 / 425 275 / 425 Balance 380 / 280 -124.447 / -381.974 -257.527 / -381.974 Intake: Intake, Oral Amount 480 / 680 Intake, Total IV Amount 25.553 / 43.026 17.473 / 43.026 Output: Output, Urine Amount 100 / 900 150 / 425 275 / 425 Other: Number of Unmeasured Voids 1 Weight 81.737 kg Patient Weight 02/01/25 23:59 Weight 81.737 kg Laboratory Results - last 24 hr 01/31/25 15:24: POC Glucose 114 H 01/31/25 15:48: Sodium 134 L, Potassium 4.6, Chloride 99, Carbon Dioxide 25, Anion Gap 14.6, BUN 70 H, Creatinine 3.60 H, Estimated Creat Clear 21, Estimated GFR 17 L*, Est GFR ( Amer) 20 L, Glucose 137 H D, Calcium 8.9 01/31/25 20:06: POC Glucose 279 H 01/31/25 21:40: Lactate 2.1 02/01/25 05:09: POC Glucose 76 02/01/25 05:28: WBC 6.6, RBC 4.34 L, Hgb 12.1 L, Hct 37.0 L, MCV 85.3, MCH 27.9, MCHC 32.7, RDW 15.4, Plt Count 283, MPV 10.0, Neut % (Auto) 69.5, Lymph % (Auto) 15.7, [place] % (Auto) 12.6 H, Eos % (Auto) 1.1, Baso % (Auto) 0.6, Neut # (Auto) 4.6, Lymph # (Auto) 1.0, [place] # (Auto) 0.8, Eos # (Auto) 0.1, Baso # (Auto) 0.0, Sodium 134 L, Potassium 4.3, Chloride 101, Carbon Dioxide 25, Anion Gap 12.3, BUN 69 H, Creatinine 3.40 H, Estimated Creat Clear 22, Estimated GFR 18 L*, Est GFR ( Amer) 22 L, Glucose 72 L D, Lactate 0.8, Calcium 8.7, Magnesium 2.4 H, Total Bilirubin 0.6, AST 54, ALT 76, Alkaline Phosphatase 195 H, Total Protein 6.8, Albumin 3.5, Globulin 3.3 H, Albumin/Globulin Ratio 1.1 02/01/25 11:04: POC Glucose 71 I & O for Labs for Last 24 Hours: Intake & Output 01/29/25 01/30/25 01/31/25 02/01/25 23:59 23:59 23:59 23:59 Intake Total 1000 / 1400 2135 / 2135 1180 / 1180 43.026 / 43.026 Output Total 800 / 800 950 / 950 900 / 900 425 / 425 Balance 200 / 600 1185 / 1185 280 / 280 -381.974 / -381.974 Weight 79.5 kg 82.191 kg 80.785 kg 81.737 kg Constitutional: Present mild distress, average body habitus, chronically ill appearing and cooperative Head: Present atraumatic and normocephalic ENT: Present normal exam Respiratory: Present normal respiratory effort; Absent rhonchi, wheezes or crackles Cardiac: Present Reg Rate and Rhythm GI: Present soft, distention and normal bowel sounds; Absent tenderness Extremities: Present normal inspection, full ROM and edema (2+ to mid ferro) Skin: Present intact; Absent erythema Neuro: Present Grossly Intact, alert, awake, oriented x 3 and moves all extremities Assessment and Plan *Assessment and plan (1) Acute on chronic HFrEF (heart failure with reduced ejection fraction): Status: Acute Category: Medical Code(s): I50.23 - Acute on chronic systolic (congestive) heart failure (2) Atrial fibrillation with RVR: Status: Acute Category: Medical Code(s): I48.91 - Unspecified atrial fibrillation (3) Ischemic cardiomyopathy: Status: Acute Category: Medical Code(s): I25.5 - Ischemic cardiomyopathy (4) Hypothyroidism (acquired): Status: Acute Category: Medical Code(s): E03.9 - Hypothyroidism, unspecified (5) DM type 2 (diabetes mellitus, type 2): Status: Acute Qualifiers: Diabetes mellitus lobsterman insulin use: without long-term use Diabetes mellitus complication status: with other specified complication Qualified Code(s): E11.69 - Type 2 diabetes mellitus with other specified complication Category: Medical Code(s): E11.9 - Type 2 diabetes mellitus without complications (6) Pulmonary HTN: Status: Acute Category: Medical Code(s): I27.20 - Pulmonary hypertension, unspecified (7) CKD stage 4 due to type 2 diabetes mellitus: Status: Acute Category: Medical Code(s): E11.22 - Type 2 diabetes mellitus with diabetic chronic kidney disease; N18.4 - Chronic kidney disease, stage 4 (severe) (8) Coronary artery disease: Status: Acute Qualifiers: Coronary Disease-Associated Artery/Lesion type: bypass graft [place] vs. transplanted heart: [place] heart Associated angina: with other forms of angina Qualified Code(s): I25.708 - Atherosclerosis of coronary artery bypass graft(s), unspecified, with other forms of angina pectoris Category: Medical Code(s): I25.10 - Atherosclerotic heart disease of [place] coronary artery without angina pectoris (9) Presence of stent in coronary artery: Status: Acute Category: Surgical Code(s): Z95.5 - Presence of coronary angioplasty implant and graft (10) Hx of CABG: Status: Acute Category: Surgical Code(s): Z95.1 - Presence of aortocoronary bypass graft Plan Zackary Carrasco is a 74-year-old male with a medical history significant for A-fib, HFrEF, CAD/CABG, NSTEMI, CKD stage IV, hypertension, type 2 diabetes, BPH, GERD who presents with progressive shortness of breath, leg swelling. Patient was recently admitted to our facility last month for similar symptoms. He states he has been adherent to his medications. In the ED, patient's heart rate 120s/130s with A-fib. Version this morning. In sinus rhythm at this time. Initiated on amiodarone drip. Continues to require inpatient management. Problems addressed as follows: #Acute on chronic HFrEF # A-flutter RVR ? Presented with progressive shortness of breath, volume overload. BNP 15,400. Patient states he has been adherent to his medications, though he lives alone and family questions this. ? Initially started amiodarone drip for A-fib RVR, but transition off as patient is chronic A-fib. Went into transient cardiogenic shock with IV Lopressor 5, reversed with glucagon. RVR is likely, but still in the setting of decompensation. ? Diuresed well with IV Bumex diuresis. On hold for now due to LIANE. Patient is euvolemic. -7.5 L since admission ? V/Q scan low showed probability for pulmonary embolism. Cannot get CTA due to CKD stage IV. - Taken for CLAUDINE and cardioversion today, responded well. Currently in sinus rhythm. Initiate amiodarone drip per discussion with cardiology. ? Given ATN, holding Jardiance, Imdur, spironolactone, hydralazine. - Holding metoprolol due to poor tolerance ? Continue therapeutic Lovenox, plan to transition to DOAC if cardioversion successful tomorrow. ? Cardiology considering AICD versus referral to advanced heart failure clinic in . Patient nonadherent with LifeVest due to discomfort. #LIANE on CKD stage IV #ATN ? BUN 69, creatinine 3.4. Slight improvement from yesterday. Potassium 4.3, magnesium 2.4 sodium 134. Repeat CBC, CMP, magnesium ordered for the morning. - Baseline around 2.5. Likely from overdiuresis initially and cardiogenic shock. ? Holding diuretics, GDMT as above. Patient tolerating p.o. intake. ? Will allow ATN to self resolve without further diuretics or IV fluids. Making urine. #Possible community-acquired pneumonia ? Stable on room air. White count 6.6, hemoglobin 12.1. Finished 5-day course of levofloxacin. #CAD s/p CABG 2017, LUKE 2021 #CKD stage IV ? Continue aspirin 81 mg, clopidogrel 75 mg, atorvastatin 80 mg. #Hypothyroidism: TSH subtherapeutic 11.8. Continue home levothyroxine 88 mcg. #Type 2 diabetes: Increase insulin glargine to 20 units tonight. Holding Jardiance. Continue low-dose sliding scale insulin with fingersticks ACHS. #BPH: Continue home finasteride 5 mg. #GERD: Continue home PPI. DNR/DNI Therapeutic Lovenox Diabetic diet
[2025-02-01] MEDS: ONDANSETRON 4MG/2ML VIAL 4 MG IV ×2 (15:30→22:36)
[2025-02-01 16:35] LABS: POC Glucose,Bedside 318 (70-110)
[2025-02-01] MEDS: humaLOG 100 UNITS/ML 10ML VIAL (SSI) SUBCUT ×2 (16:56→20:16)
--- NOTE | 2025-02-01 17:29 | PC.NURSE ---
VS stable, patient complaining of shortness of breath, 2LNC for comfort. Patient remained in NSR with occasional pvc's. Patient complained of nausea after eating, zofran given with no relief. Patient then stated he was starting to have pain in the epigastric area that did not radiate anywhere. MD aware and awaiting orders.
[2025-02-01] MEDS: CALCIUM CARBONATE 500MG CHEWTAB 500 MG PO (17:59)
[2025-02-01] MEDS: MORPHINE 4MG/ML SYRINGE 4 MG IV (18:07)
[2025-02-01] MEDS: ENOXAPARIN 80MG/0.8ML SYRINGE 80 MG SUBCUT (20:15)
[2025-02-01] MEDS: PANTOPRAZOLE 40MG TABLET 40 MG PO (20:15)
[2025-02-01] MEDS: ATORVASTATIN 40MG TABLET 40 MG PO (20:15)
[2025-02-01] MEDS: INSULIN GLARGINE 100 UNITS/ML 10ML VIAL 15 UNIT SUBCUT (20:16)
[2025-02-02] VITALS (36 sets, daily range): BP systolic 74–142; BP diastolic 45–83; PULSE 65–84; RESP 18–26; TEMP 36.6–36.9; O2SAT 68–100; BMI 26.6
--- NOTE | 2025-02-02 | US_ITS ---
FINAL REPORT CLINICAL HISTORY: CABG, CM with severely decreased cardiac output, DM, smoker, HTN, HLD COMPARISON: None FINDINGS: ANKLE-BRACHIAL PRESSURE INDICES Pressure indices are as follows: RIGHT LOWER EXTREMITY: Ankle-brachial pressure index: 1.03 Comments: Normal LEFT LOWER EXTREMITY: Ankle-brachial pressure index: 1.11 Comments: Normal CONCLUSION: No evidence of significant obstructive peripheral vascular disease of the lower extremities Reviewed, Interpreted and Dictated by Duran Macias MD Transcribed by Evita Fitzpatrick Authenticated and [facility]
--- NOTE | 2025-02-02 02:02 | PC.NURSE ---
Pt states he feels like he needs to urinate and is unable to use urinal at this time. Pt bladder scanned and total 181ml. Pt not distended. Will continue to encourage pt to use urinal.
--- NOTE | 2025-02-02 02:59 | XR_ITS ---
PROCEDURE INFORMATION: Exam: XR Chest Exam date and time: 02/02/2025 2:56 AM Age: 74 years old Clinical indication: Shortness of breath; SOB; Additional info: Per provider TECHNIQUE: Imaging protocol: Radiologic exam of the chest. Views: 1 view. COMPARISON: CR XR CHEST PORTABLE 01/31/2025 2:14 PM FINDINGS: Lungs: Unremarkable. No consolidation. Pleural spaces: Unremarkable. No pleural effusion. No pneumothorax. Heart/Mediastinum: Stable cardiomegaly. Bones/joints: Unremarkable. IMPRESSION: No acute findings.
--- NOTE | 2025-02-02 03:00 | ECG_ITS ---
APPROVED REPORT Exam: Resting ECG HR:67 bpm ECG Measurements Heart Rate 67 AXES OR 198 P 66 QRSd 103 QRS 113 QT 409 T 87 QTc 424 Conclusion SINUS RHYTHM POSSIBLE RIGHT VENTRICULAR HYPERTROPHY Late R wave progression Isolated q in iii ABNORMAL ECG UNCONFIRMED REPORT Electronically signed by : Roc Fajardo MD 02/02/2025 07:52:21
[2025-02-02 03:03] LABS: ABG Base Excess -7.5 mmol/L (-2.4-2.3); ABG HCO3 15.1 mmhg (22.0-26.0); ABG Oxygen Saturation 100 % (90-100); ABG PH 7.53 mmol/L (7.35-7.45); ABG TCO2 15.6 mmhg (23-27)
[2025-02-02 03:04] LABS: ABG PCO2 18.3 mmhg (35.0-45.0); Oxygen 100 %
--- NOTE | 2025-02-02 03:16 | EXP.EVENT.NO ---
pt hypotensive, hypoactive encephalopathy. cool periphery. elevated jvd. abg respiratory alkalosis and metabolic acidosis with increasing lactate. decreased uop. ekg nsr, no st dev. hypoperfusion clinically consistent with cardiogenic shock. milrinone resumed at 125. continue amio gtt
[2025-02-02] MEDS: MILRINONE LACTATE 20 MG in 0.9 % SODIUM CHLORIDE 80 ML 3.03 MG IV (03:18)
--- NOTE | 2025-02-02 04:32 | XR_ITS ---
PROCEDURE INFORMATION: Exam: XR Chest Exam date and time: 02/02/2025 4:37 AM Age: 74 years old Clinical indication: Device placement; Other: Central line placement; Additional info: Central line insertion TECHNIQUE: Imaging protocol: Radiologic exam of the chest. Views: 1 view. COMPARISON: CR XR CHEST PORTABLE 02/02/2025 2:56 AM FINDINGS: Tubes, catheters and devices: Venous central line tip projected over right atrium. junction. Lungs: Unremarkable. No consolidation. Pleural spaces: Unremarkable. No pleural effusion. No pneumothorax. Heart/Mediastinum: Unremarkable. No cardiomegaly. Bones/joints: Unremarkable. IMPRESSION: Venous central line tip projected over right atrium.
--- NOTE | 2025-02-02 04:43 | P.PCN_ITS ---
[facility] Procedure Note Date: 02/02/25 Time: 04:23 Procedure Note:: I was asked to bedside by the hospitalist to place a central line on this patient who is admitted for acute on chronic HFrEF. He had lost multiple peripheral IVs and nursing had limited access options available. He is requiring multiple IV medications and frequent labs so the hospitalist asked me to place a central venous catheter for IV access. I examined the patient at bedside. Patient is alert and oriented. He is hypotensive but saturating well on nasal cannula. I discussed the procedure with him. He states he has had CVC before and understands the procedure. We discussed risks including bleeding, pain, infection, damage to surrounding structure, failed procedure, need for repeat procedure, pneumothorax. We also discussed the benefit of having good, secure IV access to continue receiving IV treatments. He provided consent for the procedure though it is also under emergent circumstances. I noted when the patient was laid flat that his vitals became slightly worse and he became borderline hypoxic. I was concerned about not having other IV access while having the patient under sterile drapes and potentially experiencing instability so I placed a ultrasound-guided IV prior to placing the CVC. Ultrasound-guided IV Indication: Need for IV access Emergent situation Procedure details: Appropriate vessel identified with ultrasound. Area cleansed with alcohol which was allowed to dry. Sterile jelly used. 20-gauge IV placed under real-time ultrasound guidance, directly visualized entering the blood vessel with ultrasound. Draws and flushes. Secured with Tegaderm. Post procedure: Tolerated well, no complications, neurovascularly intact. Central line placement Indication: Clinical instability, multiple IV medications, lack of adequate peripheral IV access pre-procedure: Consent provided by patient, emergent situation site selection - Right IJ visualized with ultrasound and appears distended but easily accessible and parallel to the carotid Procedure details: Maximum sterile technique was practiced with sterile gown, gloves, bouffant, and sterile drapes Area cleansed multiple times with chlorhexidine which was allowed to dry between each application Overlying area anesthetized with 5 mL 1% lidocaine without epinephrine 7 Vietnamese triple-lumen 20 cm CVC placed in the right IJ under real-time ultrasound guidance, initial needle entrance into the vessel directly visualized with ultrasound, Seldinger technique for remainder of procedure. CVC sutured in place, Biopatch applied, sterile Tegaderm applied. All ports draw and flush. Post procedure: Bilateral breath sounds present, patient tolerated procedure well, no complications
--- NOTE | 2025-02-02 05:04 | P.EN_ITS ---
02/02/25 I was asked to bedside by the hospitalist to place a central line on this patient who is admitted for acute on chronic HFrEF. He had lost multiple peripheral IVs and nursing had limited access options available. He is requiring multiple IV medications and frequent labs so the hospitalist asked me to place a central venous catheter for IV access. I reviewed labs on this patient to familiarize myself with the case which demonstrate he has kidney dysfunction with elevated creatinine, slightly abnormal troponin, mild anemia but normal platelets. Cardiology note from 02/01/25 demonstrates patient has been on milrinone drip and was awaiting CLAUDINE cardioversion. He had been experiencing A- fib with RVR. Echo showed EF 30%. I examined the patient at bedside. Patient is alert and oriented. He is hypotensive but saturating well on nasal cannula. I discussed the procedure with him. He states he has had CVC before and understands the procedure. We discussed risks including bleeding, pain, infection, damage to surrounding structure, failed procedure, need for repeat procedure, pneumothorax. We also discussed the benefit of having good, secure IV access to continue receiving IV treatments. He provided consent for the procedure though it is also under emergent circumstances. I noted when the patient was laid flat that his vitals became slightly worse and he became borderline hypoxic despite nasal cannula which is consistent with his ongoing pathology. I was concerned about not having other IV access while having the patient under sterile drapes and potentially experiencing hemodynamic instability so I placed a ultrasound-guided IV prior to placing the CVC so there was IV access available if needed for emergent intervention. Ultrasound-guided IV Indication: Need for IV access Emergent situation Procedure details: Appropriate vessel identified with ultrasound. Area cleansed with alcohol which was allowed to dry. Sterile jelly used. 20-gauge IV placed under real-time ultrasound guidance, directly visualized entering the blood vessel with ultrasound. Draws and flushes. Secured with Tegaderm. Post procedure: Tolerated well, no complications, neurovascularly intact. After USGIV placement, I proceeded with the Central line placement Central line placement Indication: Clinical instability, multiple IV medications, lack of adequate peripheral IV access pre-procedure: Consent provided by patient, emergent situation site selection - Right IJ visualized with ultrasound and appears distended but easily accessible and parallel to the carotid Patient position - supine Time out performed. Procedure started at 0424 Procedure details: Maximum sterile technique was practiced with sterile gown, gloves, bouffant, and sterile drapes Area cleansed multiple times with chlorhexidine which was allowed to dry between each application Overlying area anesthetized with 5 mL 1% lidocaine without epinephrine 7 [place]ian triple-lumen 20 cm CVC placed in the right IJ under real-time ultrasound guidance, initial needle entrance into the vessel directly visualized with ultrasound, Seldinger technique for remainder of procedure. CVC sutured in place, Biopatch applied, sterile Tegaderm applied. All ports draw and flush. Post procedure: Bilateral breath sounds present, patient tolerated procedure well, no complications Postprocedural chest x-ray personally interpreted demonstrates CVC may be slightly deep possibly extending into the IVC, however there is no pneumothorax. Patient is not experiencing any ectopy or changes on the monitor. Will not ad just the CVC at this time since he is tolerating it well and it is functioning well. See radiology read for final interpretation of CXR which is pending at this time. On 02/02/25, the high probability of a clinically significant, sudden or life threatening deterioration of the following system(s) (cardiac, respiratory) required my full and direct attention, intervention and personal management. The time I documented (30 minutes) is in addition to time spent performing reported procedures but includes the following listed in this critical care notation.
--- NOTE | 2025-02-02 05:28 | PC.NURSE ---
0214 Pt BP noted to be 76/45 on monitor. Pt immediately assessed and BP cuff repositioned. BP showing 82/43. Manual then BP measured- 78/46. Divina Martins notified. States he will come up to bedside shortly. When further assessing patient, patient noted to have cyanosis to bilat ears, bilat toes. Unable to find bilat pedal pulse. Bilat radial pulse very weak. Pulse ox reading 100% on right index finger. Pulse ox applied to forehead and read 68% with a good pleth. RT called to bedside. Pt titrated up to 6 L nc. Pt continues to sat in low 70s. Pt then placed on NRB. Lakshmi called to bedside at this time- orders EKG and ABG, and chest x ray. Lakshmi states to restart Milrinone @ 0.125mcg/kg/min. Shortly after starting Milrinone, both peripheral IVs stopped working. IV insertion attempted by multiple staff members. [facility] ER MD called by Divina Martins to perform central line insertion to right IJ. Pt tolerated procedure well. Placement verified with chest xray. [facility] also inserted 20g peripheral IV to left upper arm via ultrasound.
[2025-02-02 05:54] LABS: Lactate Venous 3.7 mmol/L (0.4-2.0); VBG Base Excess -8.4 mmol/L (-2.4-2.3); VBG HCO3 17.7 mmol/L (23-30); VBG Oxygen Saturation 90.1 % (50-70); VBG PCO2 35.1 mmol/L (35-51); VBG PH 7.32 mmol/L (7.31-7.41); VBG PO2 65.7 mmol/L (28-40); VBG Total CO2 18.8 mmol/L (23-27)
[2025-02-02 06:20] LABS: Basophils % 0.2 % (0.1-2.0); Hematocrit 38.2 % (42.0-52.0); Hemoglobin 12.3 g/dL (14.1-18.0); Lymphocytes # 1.4 K/mm3 (0.7-4.5); Lymphocytes % 11.5 % (10-50); Mean Corpuscular HGB Conc 32.2 g/dL (31.8-35.4); Mean Corpuscular Hemoglobin 27.6 pg (27.0-31.2); Mean Corpuscular Volume 85.7 fl (80-94); Mean Platelet Volume 10.1 fl (7.4-10.4); Monocytes # 1.7 K/mm3 (0.1-1.0); Monocytes % 14.3 % (1.7-9.3); Neutrophils # 8.8 K/mm3 (1.8-7.8); Neutrophils % 73.1 % (37.0-80.0); Nucleated Red Blood Cells # 0 10^3/uL; Nucleated Red Blood Cells % 0 %; Platelet Count 319 K/mm3 (142-424); Red Blood Count 4.46 M/mm3 (4.60-6.20); Red Cell Distribution Width 15.6 % (11.5-17.5); Red Cell Distribution Width-SD 48.2 fL
[2025-02-02 06:23] LABS: MANUAL DIFFERENTIAL MANUAL DIFFERENTIAL (MANUAL DIFF)
[2025-02-02] MEDS: LEVOTHYROXINE 88MCG (0.088MG) TAB 88 MCG PO (06:32)
[2025-02-02 06:35] LABS: POC Glucose,Bedside 91 (70-110)
[2025-02-02 06:38] LABS: Albumin Level 3.5 g/dl (3.5-5.0); Chloride 99 mmol/L (98-107); Sodium 129 mmol/L (136-145)
[2025-02-02 06:40] LABS: Blood Urea Nitrogen 79 mg/dl (9-20); Creatinine Clearance Estimated 17 mL/min (50-200); Estimated Glomerular Filt Rate 13 ml/min (>60); GFR (African American) 16 ML/MIN (>60)
[2025-02-02 06:41] LABS: Albumin/Globulin Ratio 1.2 (1.1-1.8); Alkaline Phosphatase 274 U/L (38-126); Bilirubin,Total 1.7 mg/dl (0.2-1.3); Calcium 8.6 mg/dl (8.4-10.2); Carbon Dioxide 22 mmol/L (22.0-30.0); Glucose 74 mg/dl (74-100); Magnesium 2.4 mg/dl (1.6-2.3); Total Protein,Serum 6.5 g/dl (6.3-8.2)
--- NOTE | 2025-02-02 06:43 | PC.NURSE ---
Pt much more alert this AM. Pt pedal pulses able to be heard with doppler. Pt remains pallor but skin color much improved. Pt on 3 L nc, tolerating well with sat >90%. Amiodarone gtt running @ 0.5mg/min. Continue infusion past 18hr kay per Divina Martins. Milrinone currently infusing @ 0.125mcg/kg/min. Pt currently sitting up in bed watching tv. States he is ready for breakfast. Call light within reach.
[2025-02-02 06:59] LABS: Alanine Aminotransferase 1129 U/L (12-78); Aspartate Amino Transferase 1458 U/L (17-59)
--- NOTE | 2025-02-02 07:07 | CA_ITS ---
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 Limited echo to assess EF. Echo Enhancing Agent Indication: Endocardial border delineation Agent(s) / Amount(s) Used: Definity 2 cc 2D Dimensions EF AP4 26.70 % GL Strain -4.2 % M-Mode Dimensions RVDd 2.72 cm (0.9-2.6) LVDd 5.94 cm (3.5-5.7) LVDs 5.62 cm (3.5-5.7) IVSd 0.75 cm (0.6-1.1) PWd 0.64 cm (0.6-1.1) EF (Teich) 11.90% FS 5.40% EDV (Teich) 175.90 mL ESV (Teich) 154.90 mL Other Information Study Quality: Adequate Conclusion This is a limited TTE to evaluate for LV systolic function. Limited windows were obtained. Ultrasound enhancing agent is administered. The left ventricle is normal in size. There is increased LV wall thickness. There is severe global hypokinesis present. LVEF is 10-15%. Administration of ultrasound enhancing agent demonstrates no evidence of LV thrombus. Electronically signed by : Cornelia Lees MD 02/02/2025 12:44:37
[2025-02-02 07:20] LABS: Lymphocytes % 20 % (10-50); Monocytes % 8 % (2-9); Neutrophils % 72 % (42-76); Platelet Estimate Normal; RBC Morphology Normal; Total Cells Counted 100
[2025-02-02] MEDS: DEFINITY US ECHO CONTRAST 2ML INJ 2 MG IV (08:11)
--- NOTE | 2025-02-02 08:35 | PC.NURSE ---
no stairs on unit to access stair use
--- NOTE | 2025-02-02 08:41 | PC.NURSE ---
bilateral radial pulses palpable at +2. Left dorsalis pedis not palpable/dopplerable. posterior tibial dopplerable +2. right dorsalis pedis and posterior tibial were dopplerable but very weak. (pulses dopplered by Sunny Lawrence and verified by Joceline hunter)
[2025-02-02] MEDS: ASPIRIN EC 81MG TABLET 81 MG PO (09:04)
[2025-02-02] MEDS: CLOPIDOGREL 75MG TAB 75 MG PO (09:05)
--- NOTE | 2025-02-02 09:42 | P.PN_ITS ---
Subjective Subjective Date: 02/02/25 Time: 08:00 Principal diagnosis: HFrEF, CKD Interval history: Patient was started on milrinone drip last night for cardiogenic shock. Event note states patient became hypotensive with decreased urine output noted. Liver enzymes this morning have increased to greater than 1000 and creatinine has increased to over 4. Patient remains on amiodarone and milrinone drip. This morning he reports he is feeling somewhat better and denies chest pain or shortness of breath. Lung sounds are clear to auscultation. No lower extremity edema present but cool extremities noted. Nurses report decreased pedal pulses on Doppler. Chest x-ray negative for pleural effusions. Exam Data for Last 24 hours Vital signs and Labs for Last 24 Hours: Temp Pulse Resp BP Pulse Ox O2 Del Method O2 Flow Rate 98.2 F 67 22 102/65 L 90 L Nasal Cannula 3 02/02/25 08:00 02/02/25 09:00 02/02/25 09:00 02/02/25 09:00 02/02/25 09:00 02/02/25 09:00 02/02/25 09:00 Laboratory Results - last 24 hr 02/01/25 11:04: POC Glucose 71 02/01/25 16:28: POC Glucose 318 H* 02/02/25 03:01: O2 % 100, ABG pH 7.53 H, ABG pCO2 18.3 L, ABG pO2 205.0 H, ABG HCO3 15.1 L, ABG Total CO2 15.6 L, ABG O2 Saturation 100, ABG Base Excess -7.5 L 02/02/25 05:27: Sodium 129 L, Potassium 6.0 H D, Chloride 99, Carbon Dioxide 22, Anion Gap 14.0, BUN 79 H, Creatinine 4.50 H D, Estimated Creat Clear 17, Estimated GFR 13 L*, Est GFR ( Amer) 16 L* D, Glucose 74, Calcium 8.6, Magnesium 2.4 H, Total Bilirubin 1.7 H, AST 1458 H* D, ALT 1129 H*, Alkaline Phosphatase 274 H, Total Protein 6.5, Albumin 3.5, Globulin 3.0, Albumin/Globulin Ratio 1.2 02/02/25 05:35: VBG pH 7.32, VBG pCO2 35.1, VBG pO2 65.7 H, VBG HCO3 17.7 L, VBG Total CO2 18.8 L, VBG O2 Saturation 90.1 H, VBG Base Excess -8.4 L, VBG Lactic Acid 3.7 H 02/02/25 06:03: POC Glucose 91 02/02/25 06:10: WBC 12.0 H D, RBC 4.46 L, Hgb 12.3 L, Hct 38.2 L, MCV 85.7, MCH 27.6, MCHC 32.2, RDW 15.6, Plt Count 319, MPV 10.1, Neut % (Auto) 73.1, Lymph % (Auto) 11.5, [place] % (Auto) 14.3 H, Eos % (Auto) 0.0 L, Baso % (Auto) 0.2, Neut # (Auto) 8.8 H, Lymph # (Auto) 1.4, [place] # (Auto) 1.7 H, Eos # (Auto) 0.0, Baso # (Auto) 0.0, Total Counted 100, Neutrophils % (Manual) 72, Lymphocytes % (Manual) 20, Monocytes % (Manual) 8, Platelet Estimate Normal, RBC Morphology Normal I & O for Last 24 hours: Intake & Output 01/30/25 01/31/25 02/01/25 02/02/25 23:59 23:59 23:59 23:59 Intake Total 2135 / 2135 1180 / 1180 451.357 / 9706.535 1297.3 / 1432.3 Output Total 950 / 950 900 / 900 735 / 735 0 / 0 Balance 1185 / 1185 280 / 280 -283.643 / 556.475 9546.3 / 1432.3 Weight 181 lb 3.2 oz 178 lb 1.6 oz 180 lb 3.2 oz 180 lb 3.293 oz Constitutional Constitutional: no acute distress *Routine Respiratory Exam Respiratory: Present CTA bilaterally and symmetric chest movement *Routine Cardiovascular Exam Cardiovascular: Present RRR, Normal S1 and Normal S2 *Routine Abdominal Exam Abdominal: Present soft and normoactive bowel sounds; Absent tenderness *Routine Extremities Exam Extremities: Present full ROM and pallor; Absent edema Comments: Bilateral cool extremities noted. Doppler pulses are pending. *Routine Skin Exam Skin: Present intact, dry and warm Detailed Neck Exam: Thyroids Thyroid: Absent bruit Progress Note: A&P Assessment and plan (1) Acute on chronic HFrEF (heart failure with reduced ejection fraction): Status: Acute (2) Atrial fibrillation with RVR: Status: Acute (3) Ischemic cardiomyopathy: Status: Acute (4) Hypothyroidism (acquired): Status: Acute (5) DM type 2 (diabetes mellitus, type 2): Status: Acute (6) Pulmonary HTN: Status: Acute (7) CKD stage 4 due to type 2 diabetes mellitus: Status: Acute (8) Coronary artery disease: Status: Acute (9) Presence of stent in coronary artery: Status: Acute (10) Hx of CABG: Status: Acute Assessment and Plan Assessment and Plan for All Diagnoses:: Patient summary: Patient presented last week in A-fib RVR and acute HFrEF. History of known ejection fraction of 30% noted December 2024. Was unable to treat afib RVR with advancement of beta cholo therapy due to becoming hypotensive and nauseated with increase. Was unable to start amiodarone due to lack of OAC. Patient was started on IV diuretics and responded well diuresing over 10 L but remained tachycardic. Patient has chronic kidney disease with a baseline creatinine of 2.2-2.4. Creatinine got as high as 3.8 over the past weekend while diuresing and diuretics were placed on hold with improvement of creatinine. Patient actually appeared dry on exam on Friday and received gentle fluids of a max of 500 mls normal saline. Chest x-ray was clear. Patient remained stable throughout the day but late Friday evening developed abdominal pain and endorsed soa. Vitals were noted to be normal with an oxygen saturated above 95 on room air. Patient was started on milrinone drip at that time due to concern for low perfusion state/cardiogenic shock per primary service. Patient remained on milrinone drip and underwent CLAUDINE/cardioversion yesterday successfully converting to normal sinus rhythm and revealing an ejection fraction of 15%, official read pending. Patient was started on IV and p.o. amiodarone and return to floor in stable condition. Milrinone was DC'd. A rapid response was called last night due to patient becoming hypotensive with altered mental status and and decreased urine output. Patient was started back on milrinone drip for cardiogenic shock. This morning patient remains stable on milrinone and amiodarone drip. Has decreased urine output noted. Morning labs significant for a sodium of 129, potassium of 6, creatinine 4.5 with a BUN of 79, AST 1458 up from 54 yesterday and an ALT of 1129 up from 76 yesterday. Central line was placed during rapid response. Cardiogenic shock Acute on chronic HFrEF Transaminitis in the setting of cardiogenic shock and amiodarone therapy Likely secondary to low output state after conversion to NSR Liver enzymes are elevated today above 1000, amio might be contributing, patient has decreased urine output noted and a creatinine greater than 4 Patient was started on milrinone drip last night, will continue. If patient becomes hypotensive we will switch to dobutamine. Increase Milrinone drip to 0.25. Lung sounds remain clear bilaterally. No lower extremity edema noted. Chest x-ray today is negative for pleural effusions. JVD is noted. Bumex drip ordered. Increase to 2mg/hr. Preliminary echo shows an estimated EF of 10 to 15% which is down from 30 in December. Official read pending Patient was volume overloaded upon presentation to hospital and has diuresed over 10 L, remains in a negative balance Repeat labs pending History of paroxysmal atrial fibrillation History of A-fib RVR Elevated d-dimer on admission Patient remains in normal sinus rhythm status post CLAUDINE cardioversion yesterday Beta-cholo on hold due to cardiogenic shock History of hematuria on OAC. Continue Lovenox Continue amiodarone 400mg TID. Can stop drip. Elevated D-dimer on admission, VQ scan low probability for PE Coronary artery disease Status post CABG in 2018 Status post stenting Last drug-eluting stent placed 09/2024 Left heart cath 12/27/2024 showed stable coronary disease. Continue aspirin, Plavix and statin Acute on chronic kidney disease Bilateral renals were normal on cath 12/2024 Baseline creatinine 2.2-2.4. Creatinine climbed to 3.8 with a BUN of 74 after diuresis CV summary 02/01/2025: Official echo reads are pending. Can stop amiodarone drip and continue amiodarone 400 mg 3 times daily. Continue milrinone and Bumex drips. Repeat labs pending. Cardiac meds: Aspirin 81 mg p.o. daily Atorvastatin 40 mg p.o. daily Plavix 75 mg daily Lovenox 80 mg subcu every 24 hours Toprol 25 mg day-on hold Milrinone drip Amio drip Bumex drip
[2025-02-02 09:45] LABS: Reflex Lactic Add Lactic Reflex
[2025-02-02] MEDS: BUMETANIDE 10 MG in 0.9 % SODIUM CHLORIDE 60 ML IV (10:05)
[2025-02-02] MEDS: CALCIUM GLUC IN NACL, ISO-OSM 1 GM/50 ML BAG IV (10:06)
[2025-02-02] MEDS: DEXTROSE 50% 50ML SYRINGE (CRASH CART) 50 ML IVP (10:07)
[2025-02-02] MEDS: humaLOG 100 UNITS/ML 10ML VIAL (SSI) 10 UNIT IV (10:13)
[2025-02-02 10:20] LABS: Lactic Acid Follow Up (RFLX 1) 1.6 mmol/L (0.7-2.1)
[2025-02-02] MEDS: humaLOG 100 UNITS/ML 10ML VIAL (SSI) SUBCUT ×3 (11:27→20:04)
[2025-02-02 11:28] LABS: POC Glucose,Bedside 199 (70-110)
--- NOTE | 2025-02-02 12:33 | EXP.ACUTE.PN ---
Subjective *Date: 02/02/25 *Time: 16:13 Interval history: Overnight patient felt more fatigued, felt more short of breath. Was complaining of more abdominal pain. On evaluation he was noted to be more cyanotic, had blue ears. Pale legs. Concern for hypoperfusion. Was initiated on milrinone drip due to concern for cardiogenic shock clinically. This morning he states he is feeling somewhat better. Still requiring 3 oxy and. Denies chest pain, nausea, vomiting today. Resting comfortably lying on his left side. Blood pressure normal at 109/69. Heart rate has remained in sinus rhythm since cardioversion yesterday. Noted to have worsening kidney function on labs and worsening liver function. Still making urine. Medical Exam Vital signs and Labs for Last 24 Hours: Vital Signs Temp Pulse Pulse Pulse Resp BP Pulse Ox 02/02/25 12:00 74 18 139/81 91 L 02/02/25 11:36 70 18 113/67 90 L 02/02/25 11:00 72 18 128/83 100 02/02/25 11:00 02/02/25 10:30 72 18 127/77 94 L 02/02/25 10:00 70 22 123/72 97 02/02/25 09:32 67 18 108/66 L 90 L 02/02/25 09:00 67 22 102/65 L 90 L 02/02/25 09:00 02/02/25 08:30 98.2 F 68 24 103/63 L 90 L 02/02/25 08:00 70 02/02/25 07:50 67 93 L 02/02/25 07:25 71 18 109/69 L 100 02/02/25 07:00 72 18 109/69 L 97 02/02/25 06:40 100 02/02/25 06:40 02/02/25 06:00 71 18 90/60 L 100 02/02/25 05:00 70 26 H 102/58 L 100 02/02/25 05:00 02/02/25 04:00 70 26 H 99/63 L 99 02/02/25 04:00 65 02/02/25 03:20 70 24 109/59 L 97 02/02/25 03:00 02/02/25 02:53 69 26 H 74/45 L 70 L 02/02/25 02:40 72 L 02/02/25 02:35 68 L 02/02/25 02:30 67 68 L 02/02/25 02:25 78/46 L 02/02/25 02:00 68 22 100 02/02/25 01:00 02/02/25 00:00 73 02/02/25 00:00 98.4 F 73 22 94/56 L 94 L 02/01/25 23:00 02/01/25 22:00 71 18 99/55 L 97 02/01/25 20:36 02/01/25 20:00 69 02/01/25 20:00 78 16 99/68 L 100 02/01/25 19:56 97.5 F L 02/01/25 19:45 97 02/01/25 18:48 02/01/25 18:00 73 26 H 117/70 95 02/01/25 17:00 02/01/25 16:00 80 02/01/25 16:00 97.8 F 76 27 H 103/68 L 100 02/01/25 14:59 02/01/25 14:30 81 20 95/64 L 99 02/01/25 14:00 02/01/25 14:00 83 27 H 117/69 100 02/01/25 13:30 79 20 116/70 100 02/01/25 13:00 81 20 93/58 L 100 02/01/25 12:51 02/01/25 12:45 79 18 101/72 L 100 02/01/25 12:34 80 O2 Del Method O2 Flow Rate 02/02/25 12:00 Nasal Cannula 3 02/02/25 11:36 Nasal Cannula 3 02/02/25 11:00 Nasal Cannula 3 02/02/25 11:00 Nasal Cannula 3 02/02/25 10:30 Nasal Cannula 3 02/02/25 10:00 Nasal Cannula 3 02/02/25 09:32 Nasal Cannula 3 02/02/25 09:00 Nasal Cannula 3 02/02/25 09:00 Nasal Cannula 3 02/02/25 08:30 Nasal Cannula 3 02/02/25 08:00 02/02/25 07:50 Nasal Cannula 3 02/02/25 07:25 Nasal Cannula 3 02/02/25 07:00 Nasal Cannula 3 02/02/25 06:40 Nasal Cannula 3 02/02/25 06:40 Nasal Cannula 3 02/02/25 06:00 Nasal Cannula 3 02/02/25 05:00 Nasal Cannula 3 02/02/25 05:00 Nasal Cannula 3 02/02/25 04:00 Nasal Cannula 6 02/02/25 04:00 02/02/25 03:20 Non-Rebreather 02/02/25 03:00 Non-Rebreather 02/02/25 02:53 Nasal Cannula 6 02/02/25 02:40 Nasal Cannula 4 02/02/25 02:35 Nasal Cannula 2 02/02/25 02:30 Nasal Cannula 2 02/02/25 02:25 02/02/25 02:00 Nasal Cannula 2 02/02/25 01:00 Nasal Cannula 2 02/02/25 00:00 02/02/25 00:00 Nasal Cannula 2 02/01/25 23:00 Nasal Cannula 2 02/01/25 22:00 Room Air 02/01/25 20:36 Nasal Cannula 2 02/01/25 20:00 02/01/25 20:00 Nasal Cannula 2 02/01/25 19:56 02/01/25 19:45 Nasal Cannula 2 02/01/25 18:48 Nasal Cannula 2 02/01/25 18:00 Nasal Cannula 2 02/01/25 17:00 Nasal Cannula 2 02/01/25 16:00 02/01/25 16:00 Nasal Cannula 2 02/01/25 14:59 Nasal Cannula 2 02/01/25 14:30 Nasal Cannula 2 02/01/25 14:00 Nasal Cannula 2 02/01/25 14:00 Nasal Cannula 2 02/01/25 13:30 Nasal Cannula 2 02/01/25 13:00 Nasal Cannula 2 02/01/25 12:51 Room Air 02/01/25 12:45 Room Air 02/01/25 12:34 Intake and Output 02/01/25 02/02/25 02/02/25 23:59 07:59 15:59 Intake Total 308.331 / 2550.840 3526 / 1616.833 616.833 / 1616.833 Output Total 210 / 735 0 / 0 Balance 98.331 / 549.945 1475 / 1616.833 616.833 / 1616.833 Intake: Intake, Oral Amount 1000 / 1120 120 / 1120 Intake, Total IV Amount 308.331 / 351.357 496.833 / 496.833 Amiodarone HCl 150 mg In 100 / 100 458 / 458 Dextrose 5 % in Water 100 ml @ 618 mls/hr IV ONCE ONE Rx#: [id number] Output: Output, Urine Amount 210 / 735 0 / 0 Other: Number of Unmeasured Voids 1 Weight 81.74 kg Patient Weight 02/02/25 23:59 Weight 81.74 kg Laboratory Results - last 24 hr 02/01/25 16:28: POC Glucose 318 H* 02/02/25 03:01: O2 % 100, ABG pH 7.53 H, ABG pCO2 18.3 L, ABG pO2 205.0 H, ABG HCO3 15.1 L, ABG Total CO2 15.6 L, ABG O2 Saturation 100, ABG Base Excess -7.5 L 02/02/25 05:27: Sodium 129 L, Potassium 6.0 H D, Chloride 99, Carbon Dioxide 22, Anion Gap 14.0, BUN 79 H, Creatinine 4.50 H D, Estimated Creat Clear 17, Estimated GFR 13 L*, Est GFR ( Amer) 16 L* D, Glucose 74, Calcium 8.6, Magnesium 2.4 H, Total Bilirubin 1.7 H, AST 1458 H* D, ALT 1129 H*, Alkaline Phosphatase 274 H, Total Protein 6.5, Albumin 3.5, Globulin 3.0, Albumin/Globulin Ratio 1.2 02/02/25 05:35: VBG pH 7.32, VBG pCO2 35.1, VBG pO2 65.7 H, VBG HCO3 17.7 L, VBG Total CO2 18.8 L, VBG O2 Saturation 90.1 H, VBG Base Excess -8.4 L, VBG Lactic Acid 3.7 H 02/02/25 06:03: POC Glucose 91 02/02/25 06:10: WBC 12.0 H D, RBC 4.46 L, Hgb 12.3 L, Hct 38.2 L, MCV 85.7, MCH 27.6, MCHC 32.2, RDW 15.6, Plt Count 319, MPV 10.1, Neut % (Auto) 73.1, Lymph % (Auto) 11.5, [place] % (Auto) 14.3 H, Eos % (Auto) 0.0 L, Baso % (Auto) 0.2, Neut # (Auto) 8.8 H, Lymph # (Auto) 1.4, [place] # (Auto) 1.7 H, Eos # (Auto) 0.0, Baso # (Auto) 0.0, Total Counted 100, Neutrophils % (Manual) 72, Lymphocytes % (Manual) 20, Monocytes % (Manual) 8, Platelet Estimate Normal, RBC Morphology Normal 02/02/25 10:02: Lactate 1.6 02/02/25 11:20: POC Glucose 199 H I & O for Labs for Last 24 Hours: Intake & Output 01/30/25 01/31/25 02/01/25 02/02/25 23:59 23:59 23:59 23:59 Intake Total 2135 / 2135 1180 / 1180 451.357 / 4099.213 1455.833 / 1616.833 Output Total 950 / 950 900 / 900 735 / 735 0 / 0 Balance 1185 / 1185 280 / 280 -283.643 / 235.108 1256.833 / 1616.833 Weight 82.191 kg 80.785 kg 81.737 kg 81.74 kg Constitutional: Present mild distress, average body habitus, chronically ill appearing and cooperative Head: Present atraumatic and normocephalic ENT: Present normal exam Respiratory: Present normal respiratory effort; Absent rhonchi, wheezes or crackles Cardiac: Present Reg Rate and Rhythm GI: Present soft, distention, tenderness (Mild right upper quadrant) and normal bowel sounds Extremities: Present normal inspection and full ROM; Absent edema Skin: Present intact and pallor; Absent erythema or mottling Comment:: Pulses weak in extremities Neuro: Present Grossly Intact, alert, awake, oriented x 3 and moves all extremities Assessment and Plan *Assessment and plan (1) Cardiogenic shock: Status: Acute Category: Medical Code(s): R57.0 - Cardiogenic shock (2) Acute on chronic HFrEF (heart failure with reduced ejection fraction): Status: Acute Category: Medical Code(s): I50.23 - Acute on chronic systolic (congestive) heart failure (3) Atrial fibrillation with RVR: Status: Acute Category: Medical Code(s): I48.91 - Unspecified atrial fibrillation (4) Ischemic cardiomyopathy: Status: Acute Category: Medical Code(s): I25.5 - Ischemic cardiomyopathy (5) Hypothyroidism (acquired): Status: Acute Category: Medical Code(s): E03.9 - Hypothyroidism, unspecified (6) DM type 2 (diabetes mellitus, type 2): Status: Acute Qualifiers: Diabetes mellitus complication status: with other specified complication Diabetes mellitus fci insulin use: without fci use Qualified Code(s): E11.69 - Type 2 diabetes mellitus with other specified complication Category: Medical Code(s): E11.9 - Type 2 diabetes mellitus without complications (7) Pulmonary HTN: Status: Acute Category: Medical Code(s): I27.20 - Pulmonary hypertension, unspecified (8) CKD stage 4 due to type 2 diabetes mellitus: Status: Acute Category: Medical Code(s): E11.22 - Type 2 diabetes mellitus with diabetic chronic kidney disease; N18.4 - Chronic kidney disease, stage 4 (severe) (9) Coronary artery disease: Status: Acute Qualifiers: Associated angina: with other forms of angina Coronary Disease-Associated Artery/Lesion type: bypass graft [place] vs. transplanted heart: [place] heart Qualified Code(s): I25.708 - Atherosclerosis of coronary artery bypass graft(s), unspecified, with other forms of angina pectoris Category: Medical Code(s): I25.10 - Atherosclerotic heart disease of [place] coronary artery without angina pectoris (10) Presence of stent in coronary artery: Status: Acute Category: Surgical Code(s): Z95.5 - Presence of coronary angioplasty implant and graft (11) Hx of CABG: Status: Acute Category: Surgical Code(s): Z95.1 - Presence of aortocoronary bypass graft Plan Zackary Carrasco is a 74-year-old male with a medical history significant for A-fib, HFrEF, CAD/CABG, NSTEMI, CKD stage IV, hypertension, type 2 diabetes, BPH, GERD who presents with progressive shortness of breath, leg swelling. Patient was recently admitted to our facility last month for similar symptoms. He states he has been adherent to his medications. In the ED, patient's heart rate 120s/130s with A-fib. Cardioversion performed morning of 02/01. Tolerated well. Developed cardiogenic shock overnight. Started on milrinone drip. Elevated to ICU level care. Cardiology assisting with management today. Patient's condition is critical, prognosis guarded. Having worsening function of liver and kidney today. Problems addressed as follows: # Cardiogenic shock #Acute on chronic HFrEF # A-flutter RVR, status post cardioversion, now in sinus rhythm ? Presented with progressive shortness of breath, volume overload. BNP 15,400. Patient states he has been adherent to his medications, though he lives alone and family questions this. ? Patient initially treated with amiodarone drip for A-fib RVR, was discontinued. Attempts to resume beta-cholo showed clinical signs of cardiogenic shock. Patient was cardioverted on 02/01 with good results. Developed decompensation state over the next 12 hours. - Initiated on amiodarone drip after cardioversion and has maintained sinus rhythm. Will continue p.o. amiodarone for 100 mg 3 times a day - Continue milrinone drip at 250 mcg - Concern for volume overload with JVD on exam, cardiology after discussion today recommends initiating Bumex drip. Patient is negative approximately 6 L since admission. Plan for right heart cath in the morning - Initiate heparin drip - Repeat echocardiogram obtained this morning showing EF of 10 to 15%. Ejection fraction 30% 1 month ago -Given worsening LIANE/ATN, will hold hydralazine, Jardiance, spironolactone Hyperkalemia: -In the setting of LIANE, will treat medically with 10 units insulin and 1 amp of dextrose. Calcium gluconate 1 g IV -Due to concern for gut hypoperfusion, will hold on potassium binder due to risk for ischemia Transaminitis in the setting of cardiogenic shock and amiodarone therapy -Liver enzymes elevated from normal yesterday to bilirubin of 1.7, AST 1400, ALT 1100, alk phos 270. Repeat CMP ordered every 8 hours to trend liver enzymes #LIANE on CKD stage IV - Bilateral renals were normal on cath 12/2024 - Baseline creatinine 2.2-2.4. Creatinine 3.4 yesterday, jumped to 4.5 this morning with BUN of 79, still having urine output. - Repeat levels ordered for this afternoon with initiation of Bumex drip. Sodium 129, magnesium 2.4, potassium 6.0. Treating as above. - Caution with nephrotoxins, renally dose medication - Repeat CBC, CMP, magnesium ordered for the morning, repeat CMP ordered for 2 PM and 10 PM to monitor kidney function, electrolytes, liver function #CAD s/p CABG 2017, LUKE 2021 #CKD stage IV ? Continue aspirin 81 mg, clopidogrel 75 mg, atorvastatin 80 mg. #Hypothyroidism: TSH subtherapeutic 11.8. Continue home levothyroxine 88 mcg. #Type 2 diabetes: Continue insulin glargine decreased to 10 units tonight. Holding Jardiance. Continue low-dose sliding scale insulin with fingersticks ACHS. #BPH: Continue home finasteride 5 mg. #GERD: Continue home PPI. DNR/DNI Heparin drip Diabetic diet ICU/Critical care attestation This patient is critically ill with 35 minutes devoted solely to this patient managing life/organ supporting interventions that required physician assessment. This includes time spent making adjustments in ventilator settings, IV fluid administration, titration of pressors, adjustments of medications, discussion of patient with consultants and other care providers as well as updating patient and/or family (if patient by virtue of his/her condition is unable to participate in decision making). This does not include time spent performing separately billed procedures. Time is not concurrent with that of other providers.
[2025-02-02] MEDS: AMIODARONE 200MG TABLET 400 MG PO ×2 (13:00→20:03)
[2025-02-02] MEDS: BUMETANIDE 1MG/4ML VIAL 2 MG IV (13:01)
[2025-02-02 14:14] LABS: Chloride 96 mmol/L (98-107); Sodium 126 mmol/L (136-145)
[2025-02-02 14:15] LABS: Potassium 5.5 mmoL/L (3.5-5.1)
[2025-02-02 14:17] LABS: Alkaline Phosphatase 249 U/L (38-126); Bilirubin,Total 1.2 mg/dl (0.2-1.3); Creatinine Clearance Estimated 15 mL/min (50-200); Estimated Glomerular Filt Rate 11 ml/min (>60); GFR (African American) 14 ML/MIN (>60); Total Protein,Serum 6.5 g/dl (6.3-8.2)
[2025-02-02 14:18] LABS: Calcium 8.5 mg/dl (8.4-10.2); Glucose 178 mg/dl (74-100)
[2025-02-02 14:20] LABS: Blood Urea Nitrogen 84 mg/dl (9-20)
[2025-02-02 14:49] LABS: Aspartate Amino Transferase 2316 U/L (17-59)
[2025-02-02 14:50] LABS: Alanine Aminotransferase 1778 U/L (12-78)
[2025-02-02 15:09] LABS: Anion Gap 12.5 mEq/L (5-15); Carbon Dioxide 23 mmol/L (22.0-30.0)
[2025-02-02] MEDS: BUMETANIDE 10 MG in 0.9 % SODIUM CHLORIDE 60 ML 20 MG IV ×2 (15:54→20:21)
--- NOTE | 2025-02-02 16:12 | P.CONPHA_ITS ---
[facility] Heparin Dosing Demographic Data Admission date:: 01/24/25 Date: 02/02/25 Time: 16:13 Allergies Allergy/AdvReac Type Severity Reaction Status Date / Time amoxicillin Allergy Rash Verified 12/31/24 11:39 Penicillins Allergy Rash Verified 12/31/24 11:39 Height: 1.75 m Weight: 81.74 kg Indication Medication therapy:: Heparin Current Indications:: ATRIAL FIBRILLATION - MEDIUM DOSE PROTOCOL Current Active Problems (Updated 01/24/25 @ 16:35 by Melissa Vu RN) Shock liver (Acute) Cardiogenic shock (Acute) Ischemic cardiomyopathy (Acute) Acute on chronic HFrEF (heart failure with reduced ejection fraction) (Acute) Atrial fibrillation with RVR (Acute) Atrial flutter by electrocardiogram (Acute) Congestive heart failure (Acute) Hypothyroidism (acquired) (Acute) DM type 2 (diabetes mellitus, type 2) (Acute) Pulmonary HTN (Acute) PAF (paroxysmal atrial fibrillation) (Acute) CKD stage 4 due to type 2 diabetes mellitus (Acute) Coronary artery disease (Acute) Presence of stent in coronary artery (Acute) Hx of CABG (Acute) CVA?: No Bleeding problem?: No Kidney disease?: Yes NE?: Yes Desired PTT range:: 50-75 seconds Comments:: BASELINE PTT: Labs Anticoagulation Lab Results:: 02/02/25 06:10 Hgb 12.3 L Hct 38.2 L Plt Count 319 Monitoring Dose Monitor 1: Date: 02/02/25 Time: 16:00 PTT Result:: BASELINE PTT: 31.9 SECONDS Infusion Rate:: RECOMMEND INITIATING HEPARIN DRIP AT 1000 UNITS/HOUR = 20 ML/HOUR AND BOLUSING 5000 UNITS IV HEPARIN ONCE. Comment:: PLATELET COUNT = 319,000 Dose Monitor 2: Date: 02/02/25 Time: 22:30 PTT Result:: 63.2 [id number] Infusion Rate:: JOHNNA RECOMMEND CONTINUING CURRENT HEPARIN DRIP RATE OF 1000 UNITS/HOUR = 20 ML/HOUR Dose Monitor 3: Date: 02/03/25 Time: 08:09 PTT Result:: 58.9 SECONDS Infusion Rate:: RECOMMEND CONTINUING CURRENT HEPARIN DRIP RATE OF 1000 UNITS/HOUR = 20 ML/HOUR Comment:: PLATELET COUNT: 226,000 Dose Monitor 4: Date: 02/03/25 Time: 14:00 PTT Result:: 55.4 SECONDS Infusion Rate:: RECOMMEND CONTINUING CURRENT HEPARIN DRIP RATE OF 1000 UNITS/HOUR = 20 ML/HOUR Dose Monitor 5: Date: 02/03/25 Time: 22:00 PTT Result:: NOT OBTAINED Infusion Rate:: RATE CONTINUED TO RUN AT CURRENT HEPARIN DRIP RATE OF 1000 UNITS/HOUR = 20 ML/HOUR Comment:: PTT AT 2200 WAS TO BE DRAWN, BUT WAS NOT ORDERED. NOTIFIED ANA MARIA WHO WOULD DISCUSS WITH JOHNNA. Dose Monitor 6: Date: 02/04/25 Time: 07:51 PTT Result:: 42.3 SECONDS Infusion Rate:: RECOMMEND INCREASING HEPARIN DRIP TO 1100 UNITS/HOUR = 22 ML/HOUR AND BOLUSING 3000 UNITS HEPARIN IV ONCE. Comment:: PLATELET COUNT = 240,000 Dose Monitor 7: Date: 02/04/25 Time: 14:30 PTT Result:: 91.0 SECONDS Infusion Rate:: RECOMMEND DECREASING HEPARIN DRIP TO 1000 UNITS/HOUR = 20 ML/HOUR. Dose Monitor 8: Date: 02/04/25 Time: 21:30 PTT Result:: 59.0 SECONDS Infusion Rate:: RECOMMEND CONTINUING HEPARIN DRIP AT 1000 UNITS/HOUR = 20 ML/HOUR. Dose Monitor 9: Date: 02/05/25 Time: 06:30 PTT Result:: 46.7 SECONDS Infusion Rate:: RECOMMEND INCREASING HEPARIN DRIP TO 1100 UNITS/HOUR = 22 ML/HOUR. Comment:: PLATELET COUNT = 262,000 Dose Monitor 10: Date: 02/05/25 Time: 16:00 PTT Result:: 56.2 SECONDS Infusion Rate:: RECOMMEND CONTINUING HEPARIN DRIP AT 1100 UNITS/HOUR = 22 ML/HOUR. Dose Monitor 11: Date: 02/06/25 Time: 00:00 PTT Result:: 200.0 SECONDS Infusion Rate:: JOHNNA RECOMMEND DECREASING HEPARIN DRIP TO 850 UNITS/HOUR = 17 ML/HOUR. Dose Monitor 12: Date: 02/06/25 Time: 08:00 PTT Result:: 193.0 SECONDS Infusion Rate:: RECOMMEND DECREASING HEPARIN DRIP TO 600 UNITS/HOUR = 12 ML/HOUR. Dose Monitor 13: Date: 02/06/25 Time: 16:00 PTT Result:: 68.0 SECONDS Infusion Rate:: RECOMMEND CONTINUING HEPARIN DRIP AT 600 UNITS/HOUR = 12 ML/HOUR. Dose Monitor 14: Date: 02/07/25 Time: 00:00 PTT Result:: 40.3 SECONDS Infusion Rate:: JOHNNA RECOMMENDED INCREASING HEPARIN DRIP TO 750 UNITS/HOUR = 15 ML/HOUR AND BOLUS 3000 UNITS HEPARIN IV ONCE. Dose Monitor 15: Date: 02/07/25 Time: 08:45 PTT Result:: 40.8 SECONDS Infusion Rate:: RECOMMENDED INCREASING HEPARIN DRIP TO 900 UNITS/HOUR = 18 ML/HOUR AND BOLUS 3000 UNITS HEPARIN IV ONCE. Dose Monitor 16: Date: 02/07/25 Time: 15:30 PTT Result:: 55.5 SECONDS Infusion Rate:: RECOMMENDED CONTINUING HEPARIN DRIP AT 900 UNITS/HOUR = 18 ML/HOUR. Comment:: HEPARIN DRIP STOPPED AT 17:44 AND PATIENT TRANSITIONED TO XARELTO 15 MG QPMWITHMEAL. Core Measures Is INR > or = 2 at discharge?: No Most Recent Labs:: Laboratory Results - last 24 hr 02/01/25 16:28: POC Glucose 318 H* 02/02/25 03:01: O2 % 100, ABG pH 7.53 H, ABG pCO2 18.3 L, ABG pO2 205.0 H, ABG HCO3 15.1 L, ABG Total CO2 15.6 L, ABG O2 Saturation 100, ABG Base Excess -7.5 L 02/02/25 05:27: Sodium 129 L, Potassium 6.0 H D, Chloride 99, Carbon Dioxide 22, Anion Gap 14.0, BUN 79 H, Creatinine 4.50 H D, Estimated Creat Clear 17, Estimated GFR 13 L*, Est GFR ( Amer) 16 L* D, Glucose 74, Calcium 8.6, Magnesium 2.4 H, Total Bilirubin 1.7 H, AST 1458 H* D, ALT 1129 H*, Alkaline Phosphatase 274 H, Total Protein 6.5, Albumin 3.5, Globulin 3.0, Albumin/Globulin Ratio 1.2 02/02/25 05:35: VBG pH 7.32, VBG pCO2 35.1, VBG pO2 65.7 H, VBG HCO3 17.7 L, VBG Total CO2 18.8 L, VBG O2 Saturation 90.1 H, VBG Base Excess -8.4 L, VBG Lactic Acid 3.7 H 02/02/25 06:03: POC Glucose 91 02/02/25 06:10: WBC 12.0 H D, RBC 4.46 L, Hgb 12.3 L, Hct 38.2 L, MCV 85.7, MCH 27.6, MCHC 32.2, RDW 15.6, Plt Count 319, MPV 10.1, Neut % (Auto) 73.1, Lymph % (Auto) 11.5, [place] % (Auto) 14.3 H, Eos % (Auto) 0.0 L, Baso % (Auto) 0.2, Neut # (Auto) 8.8 H, Lymph # (Auto) 1.4, [place] # (Auto) 1.7 H, Eos # (Auto) 0.0, Baso # (Auto) 0.0, Total Counted 100, Neutrophils % (Manual) 72, Lymphocytes % (Manual) 20, Monocytes % (Manual) 8, Platelet Estimate Normal, RBC Morphology Normal 02/02/25 10:02: Lactate 1.6 02/02/25 11:20: POC Glucose 199 H 02/02/25 14:00: Sodium 126 L, Potassium 5.5 H, Chloride 96 L, Carbon Dioxide 23, Anion Gap 12.5, BUN 84 H, Creatinine 5.00 H, Estimated Creat Clear 15, Estimated GFR 11 L*, Est GFR ( Amer) 14 L*, Glucose 178 H D, Calcium 8.5, Total Bilirubin 1.2, AST 2316 H* D, ALT 1778 H*, Alkaline Phosphatase 249 H, Total Protein 6.5, Albumin 3.5 If INR was < than 2.0 why was therapy stopped?: SWITCHED TO XARELTO Were Heparin and Warfarin started on the same day?: No If not, why?: STARTED ON XARELTO
[2025-02-02 16:16] LABS: Albumin Level 3.5 g/dl (3.5-5.0); Albumin/Globulin Ratio 1.2 (1.1-1.8)
[2025-02-02 16:53] LABS: POC Glucose,Bedside 162 (70-110)
[2025-02-02 16:57] LABS: PTT Heparin (inpatient only) 31.9 Seconds (50-75)
[2025-02-02] MEDS: HEPARIN SODIUM 5,000 UNIT/ML VIAL 5000 UNIT IV (17:14)
[2025-02-02] MEDS: HEPARIN SODIUM,PORCINE/D5W 500 ML 20 UNIT IV (17:15)
[2025-02-02 17:18] LABS: INR 1.51 (0.9-1.1); Prothrombin Time 16.2 seconds (10.1-12.5)
--- NOTE | 2025-02-02 18:18 | PC.NURSE ---
All patient care and documentation completed by Kristal Meadows, was completed under my direct supervision. Molly Lawrence RN
[2025-02-02] MEDS: ATORVASTATIN 40MG TABLET 40 MG PO (20:01)
[2025-02-02] MEDS: INSULIN GLARGINE 100 UNITS/ML 10ML VIAL 10 UNIT SUBCUT (20:04)
[2025-02-02] MEDS: PANTOPRAZOLE 40MG TABLET 40 MG PO (20:04)
[2025-02-02 20:10] LABS: POC Glucose,Bedside 259 (70-110)
[2025-02-02] MEDS: MILRINONE LACTATE 20 MG in 0.9 % SODIUM CHLORIDE 80 ML 6.06 MG IV (20:23)
[2025-02-02] MEDS: OXYCODONE 10MG EXTENDED RELEASE TAB.ER.12H 10 MG PO (21:51)
[2025-02-02 23:00] LABS: Albumin Level 3.5 g/dl (3.5-5.0); Albumin/Globulin Ratio 1.2 (1.1-1.8); Alkaline Phosphatase 228 U/L (38-126); Anion Gap 11.1 mEq/L (5-15); Calcium 8.6 mg/dl (8.4-10.2); Carbon Dioxide 25 mmol/L (22.0-30.0); Chloride 95 mmol/L (98-107); Creatinine Clearance Estimated 17 mL/min (50-200); Estimated Glomerular Filt Rate 13 ml/min (>60); GFR (African American) 15 ML/MIN (>60); Glucose 180 mg/dl (74-100); Potassium 5.1 mmoL/L (3.5-5.1); Sodium 126 mmol/L (136-145); Total Protein,Serum 6.5 g/dl (6.3-8.2)
[2025-02-02 23:10] LABS: PTT Heparin (inpatient only) 63.2 Seconds (50-75)
[2025-02-02 23:12] LABS: Blood Urea Nitrogen 86 mg/dl (9-20)
[2025-02-02 23:22] LABS: Aspartate Amino Transferase 2104 U/L (17-59)
[2025-02-02 23:23] LABS: Alanine Aminotransferase 1946 U/L (12-78)
[2025-02-03] VITALS (35 sets, daily range): BP systolic 113–164; BP diastolic 49–88; PULSE 66–105; RESP 12–24; TEMP 36.4–36.8; O2SAT 90–100; BMI 27.5
[2025-02-03] MEDS: BUMETANIDE 10 MG in 0.9 % SODIUM CHLORIDE 60 ML 20 MG IV ×4 (02:08→15:23)
[2025-02-03] MEDS: HYDROMORPHONE 2MG/ML SYRINGE 1 MG IV ×2 (05:45→13:35)
[2025-02-03 05:54] LABS: Basophils % 0.3 % (0.1-2.0); Eosinophils % 0.3 % (0.1-12.0); Hematocrit 34.1 % (42.0-52.0); Hemoglobin 11.4 g/dL (14.1-18.0); Lymphocytes # 0.9 K/mm3 (0.7-4.5); Lymphocytes % 10.7 % (10-50); Mean Corpuscular HGB Conc 33.4 g/dL (31.8-35.4); Mean Corpuscular Hemoglobin 27.7 pg (27.0-31.2); Mean Corpuscular Volume 82.8 fl (80-94); Monocytes % 11.6 % (1.7-9.3); Neutrophils # 6.7 K/mm3 (1.8-7.8); Neutrophils % 76.4 % (37.0-80.0); Nucleated Red Blood Cells # 0 10^3/uL; Nucleated Red Blood Cells % 0 %; Platelet Count 226 K/mm3 (142-424); Red Blood Count 4.12 M/mm3 (4.60-6.20); Red Cell Distribution Width-SD 45.3 fL; White Blood Count 8.8 K/mm3 (4.8-10.8)
[2025-02-03 05:59] LABS: INR 1.53 (0.9-1.1); Prothrombin Time 16.4 seconds (10.1-12.5)
[2025-02-03 06:00] LABS: Alkaline Phosphatase 259 U/L (38-126); Bilirubin,Total 1.1 mg/dl (0.2-1.3); Calcium 8.6 mg/dl (8.4-10.2); Chloride 96 mmol/L (98-107); Glucose 140 mg/dl (74-100); Magnesium 2.3 mg/dl (1.6-2.3); Potassium 4.7 mmoL/L (3.5-5.1); Sodium 127 mmol/L (136-145)
[2025-02-03 06:01] LABS: Albumin Level 3.6 g/dl (3.5-5.0); Albumin/Globulin Ratio 1.2 (1.1-1.8); Anion Gap 10.7 mEq/L (5-15); Carbon Dioxide 25 mmol/L (22.0-30.0); Creatinine Clearance Estimated 17 mL/min (50-200); Estimated Glomerular Filt Rate 12 ml/min (>60); GFR (African American) 15 ML/MIN (>60); Globulin 3.1 g/dL (1.3-3.2); Total Protein,Serum 6.7 g/dl (6.3-8.2)
[2025-02-03 06:04] LABS: Blood Urea Nitrogen 84 mg/dl (9-20)
[2025-02-03 06:08] LABS: Alanine Aminotransferase 1999 U/L (12-78)
[2025-02-03 06:37] LABS: Aspartate Amino Transferase 1988 U/L (17-59)
[2025-02-03] MEDS: LEVOTHYROXINE 88MCG (0.088MG) TAB 88 MCG PO (07:05)
--- NOTE | 2025-02-03 08:25 | PC.NURSE ---
unable to assess ability to climb stairs r/t pt condition and no stairs on unit.
--- NOTE | 2025-02-03 08:27 | IR_ITS ---
APPROVED REPORT Patient Location: Inpatient PROCEDURES Right heart catheterization INDICATION Cardiogenic shock, Acute on chronic renal failure, Informed consent was obtained prior to the procedure. COMPLICATIONS NONE Estimated Blood Loss: LESS THAN 10 ML TECHNIQUE One percent lidocaine was used to anesthetize the right groin A cash on delivery clerk needle was used to identify the right femoral vein. Following this a larger cannulation needle was used to cannulate the right femoral vein and a wire was passed into the vein. Prior to the 7 [place] sheath being inserted the wire was confirmed under fluoroscopic guidance to be in the inferior vena cava. A 7 [place] sheath was introduced and a [place] catheter was floated using hemodynamic waveforms in the pulmonary artery, right ventricle , and right atrium. Saturations were obtained in the pulmonary artery and the right atrium. At the end of the procedure the patient was transferred to the postop holding area in stable condition for sheath removal. ANGIOGRAPHIC RESULTS Right atrial pressure 20 mmHg Pulmonary artery pressure 65/30 mmHg Pulmonary artery occlusion pressure 25 mmHg Right atrial saturation 53% Pulmonary artery saturation 51% Aortic saturation 94% Hemoglobin 11.4 Cardiac output 3.8 L/min Cardiac index 1.9 IMPRESSION Low cardiac output Persistent biventricular failure PLAN 1. Continue milrinone 2. Continue diuresis Electronically signed by : Merritt Martins MD 02/03/2025 18:25:17
[2025-02-03 08:34] LABS: PTT Heparin (inpatient only) 58.9 Seconds (50-75)
[2025-02-03] MEDS: AMIODARONE 200MG TABLET 400 MG PO ×3 (09:15→21:23)
[2025-02-03] MEDS: ASPIRIN EC 81MG TABLET 81 MG PO (09:15)
[2025-02-03] MEDS: CLOPIDOGREL 75MG TAB 75 MG PO (09:15)
--- NOTE | 2025-02-03 09:48 | EXP.CARD.PN ---
Subjective Subjective Date: 02/03/25 Time: 08:00 Principal diagnosis: HFrEF, CKD Interval history: Patient reports he is feeling better this morning. Reports shortness of air has not greatly improved. Denies chest pain. Morning labs reviewed. Patient remains on milrinone, Bumex and heparin drips. Exam Data for Last 24 hours Vital signs and Labs for Last 24 Hours: Temp Pulse Resp BP Pulse Ox O2 Del Method O2 Flow Rate 97.6 F 74 16 164/82 H 100 Nasal Cannula 3 02/03/25 08:00 02/03/25 08:00 02/03/25 08:00 02/03/25 08:00 02/03/25 08:00 02/03/25 08:00 02/03/25 08:00 Laboratory Results - last 24 hr 02/02/25 10:02: Lactate 1.6 02/02/25 11:20: POC Glucose 199 H 02/02/25 14:00: Sodium 126 L, Potassium 5.5 H, Chloride 96 L, Carbon Dioxide 23, Anion Gap 12.5, BUN 84 H, Creatinine 5.00 H, Estimated Creat Clear 15, Estimated GFR 11 L*, Est GFR ( Amer) 14 L*, Glucose 178 H D, Calcium 8.5, Total Bilirubin 1.2, AST 2316 H* D, ALT 1778 H*, Alkaline Phosphatase 249 H, Total Protein 6.5, Albumin 3.5, Globulin 3.0, Albumin/Globulin Ratio 1.2 02/02/25 16:13: APTT 31.9 L 02/02/25 16:42: POC Glucose 162 H 02/02/25 16:50: PT 16.2 H, INR 1.51 H 02/02/25 19:31: POC Glucose 259 H 02/02/25 22:44: APTT 63.2, Sodium 126 L, Potassium 5.1, Chloride 95 L, Carbon Dioxide 25, Anion Gap 11.1, BUN 86 H, Creatinine 4.60 H, Estimated Creat Clear 17, Estimated GFR 13 L*, Est GFR ( Amer) 15 L*, Glucose 180 H, Calcium 8.6, Total Bilirubin 1.0, AST 2104 H*, ALT 1946 H*, Alkaline Phosphatase 228 H, Total Protein 6.5, Albumin 3.5, Globulin 3.0, Albumin/Globulin Ratio 1.2 02/03/25 05:41: WBC 8.8 D, RBC 4.12 L, Hgb 11.4 L, Hct 34.1 L, MCV 82.8, MCH 27.7, MCHC 33.4, RDW 15.0, Plt Count 226 D, MPV 10.0, Neut % (Auto) 76.4, Lymph % (Auto) 10.7, [place] % (Auto) 11.6 H, Eos % (Auto) 0.3, Baso % (Auto) 0.3, Neut # (Auto) 6.7, Lymph # (Auto) 0.9, [place] # (Auto) 1.0, Eos # (Auto) 0.0, Baso # (Auto) 0.0, PT 16.4 H, INR 1.53 H, Sodium 127 L, Potassium 4.7, Chloride 96 L, Carbon Dioxide 25, Anion Gap 10.7, BUN 84 H, Creatinine 4.70 H, Estimated Creat Clear 17, Estimated GFR 12 L*, Est GFR ( Amer) 15 L*, Glucose 140 H D, Calcium 8.6, Magnesium 2.3, Total Bilirubin 1.1, AST 1988 H*, ALT 1999 H*, Alkaline Phosphatase 259 H, Total Protein 6.7, Albumin 3.6, Globulin 3.1, Albumin/Globulin Ratio 1.2 02/03/25 08:09: APTT 58.9 I & O for Last 24 hours: Intake & Output 01/31/25 02/01/25 02/02/25 02/03/25 23:59 23:59 23:59 23:59 Intake Total 1180 / 1180 451.357 / 7237.045 8205.060 / 2992.060 958.992 / 958.992 Output Total 900 / 900 735 / 735 2348 / 2348 2075 / 2075 Balance 280 / 280 -283.643 / 716.357 644.060 / 644.060 -1116.008 / -1116.008 Weight 178 lb 1.6 oz 180 lb 3.2 oz 180 lb 3.293 oz 186 lb 1.122 oz Constitutional Constitutional: no acute distress *Routine Respiratory Exam Respiratory: Present symmetric chest movement Comments: Mild crackles noted to right lung base *Routine Cardiovascular Exam Cardiovascular: Present RRR, Normal S1 and Normal S2 *Routine Abdominal Exam Abdominal: Present soft and normoactive bowel sounds; Absent tenderness *Routine Extremities Exam Extremities: Present full ROM and normal capillary refill; Absent edema *Routine Skin Exam Skin: Present intact, dry and warm Detailed Neck Exam: Thyroids Thyroid: Absent bruit Progress Note: A&P Assessment and plan (1) Cardiogenic shock: Status: Acute (2) Acute on chronic HFrEF (heart failure with reduced ejection fraction): Status: Acute (3) Atrial fibrillation with RVR: Status: Acute (4) Ischemic cardiomyopathy: Status: Acute (5) Hypothyroidism (acquired): Status: Acute (6) DM type 2 (diabetes mellitus, type 2): Status: Acute (7) Pulmonary HTN: Status: Acute (8) CKD stage 4 due to type 2 diabetes mellitus: Status: Acute (9) Coronary artery disease: Status: Acute (10) Presence of stent in coronary artery: Status: Acute (11) Hx of CABG: Status: Acute Assessment and Plan Assessment and Plan for All Diagnoses:: Cardiogenic shock Acute on chronic HFrEF Transaminitis in the setting of cardiogenic shock and amiodarone therapy Likely secondary to low output state after conversion to NSR Liver enzymes are elevated today above 1000 but slightly improved, Amio drip was DC'd yesterday. Patient remains on oral amnio Continue milrinone drip Has diuresed over 3 L since 8 AM yesterday. Continue Bumex drip Start Isordil 20 mg p.o. 3 times daily Preliminary echo shows an estimated EF of 10 to 15% which is down from 30 in December. Official read pending Right heart cath pending. Discussed risk versus benefits with patient he is agreeable to proceed History of paroxysmal atrial fibrillation History of A-fib RVR Elevated d-dimer on admission Patient remains in normal sinus rhythm status post CLAUDINE cardioversion yesterday Beta-cholo on hold due to cardiogenic shock History of hematuria on OAC. Lovenox was switched to heparin yesterday due to LIANE Continue amiodarone 400mg TID. Elevated D-dimer on admission, VQ scan low probability for PE Coronary artery disease Status post CABG in 2018 Status post stenting Last drug-eluting stent placed 09/2024 Left heart cath 12/27/2024 showed stable coronary disease. Continue aspirin, Plavix and statin Acute on chronic kidney disease Bilateral renals were normal on cath 12/2024 Baseline creatinine 2.2-2.4. Creatinine 4.7 today CV summary 02/03/2025:: Estimated EF 10 to 15%. Patient remains on milrinone, Bumex and heparin drips. Right heart cath is pending. Patient has diuresed over 3 L since 8 AM yesterday. Cardiac meds: Aspirin 81 mg p.o. daily Atorvastatin 40 mg p.o. daily Plavix 75 mg daily Lovenox 80 mg subcu every 24 hours Toprol 25 mg day-on hold Isordil 20mg po TID Milrinone drip Amio drip Bumex drip
[2025-02-03] MEDS: MILRINONE LACTATE 20 MG in 0.9 % SODIUM CHLORIDE 80 ML 6.06 MG IV (10:01)
[2025-02-03] MEDS: ONDANSETRON 4MG/2ML VIAL 4 MG IV (10:43)
--- NOTE | 2025-02-03 10:58 | EXP.ACUTE.PN ---
Subjective *Date: 02/03/25 *Time: 21:52 Interval history: Eating breakfast on morning rounds, color appears good today, responding to diuresis, -1.5 L overnight. Weaning oxygen, weaned from 3 L to 1-1/2 L on rounds with sats in the high 90s. Continue on milrinone drip and Bumex drip. Awaiting right heart cath today. Family at bedside and updated of plan. Medical Exam Vital signs and Labs for Last 24 Hours: Vital Signs Temp Pulse Pulse Resp BP Pulse Ox O2 Del Method 02/03/25 10:06 75 16 153/77 H 99 Nasal Cannula 02/03/25 10:00 81 19 153/77 H 100 Nasal Cannula 02/03/25 09:38 Nasal Cannula 02/03/25 09:26 81 16 145/69 H 100 Nasal Cannula 02/03/25 08:00 80 02/03/25 08:00 97.6 F 02/03/25 08:00 74 16 164/82 H 100 Nasal Cannula 02/03/25 07:50 75 100 Nasal Cannula 02/03/25 07:40 Nasal Cannula 02/03/25 07:00 73 12 142/70 H 100 Nasal Cannula 02/03/25 06:00 66 22 130/64 96 Nasal Cannula 02/03/25 05:00 72 18 121/63 100 Nasal Cannula 02/03/25 05:00 Nasal Cannula 02/03/25 04:00 78 02/03/25 04:00 97.8 F 77 19 142/81 H 100 Nasal Cannula 02/03/25 04:00 100 Nasal Cannula 02/03/25 03:00 76 20 126/71 100 Nasal Cannula 02/03/25 03:00 Nasal Cannula 02/03/25 02:00 76 24 123/71 100 Nasal Cannula 02/03/25 01:00 Nasal Cannula 02/03/25 01:00 75 18 126/73 100 Nasal Cannula 02/03/25 00:00 70 02/03/25 00:00 98.2 F 75 18 128/73 100 Nasal Cannula 02/03/25 00:00 100 Nasal Cannula 02/02/25 23:00 Room Air 02/02/25 23:00 79 22 129/79 100 Nasal Cannula 02/02/25 22:00 77 22 117/72 100 Nasal Cannula 02/02/25 21:00 Nasal Cannula 02/02/25 21:00 83 21 123/73 92 L Nasal Cannula 02/02/25 20:00 78 02/02/25 20:00 77 100 Nasal Cannula 02/02/25 20:00 97.8 F 84 22 126/78 100 Nasal Cannula 02/02/25 19:01 77 24 138/83 100 Nasal Cannula 02/02/25 18:56 Nasal Cannula 02/02/25 18:00 77 20 134/79 100 Nasal Cannula 02/02/25 17:00 97.8 F 76 22 130/72 100 Nasal Cannula 02/02/25 17:00 Nasal Cannula 02/02/25 16:30 100 Nasal Cannula 02/02/25 16:00 70 02/02/25 16:00 77 18 142/75 H 100 Nasal Cannula 02/02/25 15:00 Nasal Cannula 02/02/25 15:00 73 22 112/66 95 Nasal Cannula 02/02/25 14:00 73 22 122/77 96 Nasal Cannula 02/02/25 13:00 73 20 111/64 100 Nasal Cannula 02/02/25 13:00 Nasal Cannula 02/02/25 12:00 70 02/02/25 12:00 74 18 139/81 91 L Nasal Cannula 02/02/25 12:00 100 Nasal Cannula 02/02/25 11:36 70 18 113/67 90 L Nasal Cannula 02/02/25 11:00 72 18 128/83 100 Nasal Cannula 02/02/25 11:00 Nasal Cannula O2 Flow Rate 02/03/25 10:06 1.5 02/03/25 10:00 1.5 02/03/25 09:38 3 02/03/25 09:26 3 02/03/25 08:00 02/03/25 08:00 02/03/25 08:00 3 02/03/25 07:50 3 02/03/25 07:40 3 02/03/25 07:00 3 02/03/25 06:00 3 02/03/25 05:00 3 02/03/25 05:00 3 02/03/25 04:00 02/03/25 04:00 3 02/03/25 04:00 3 02/03/25 03:00 3 02/03/25 03:00 3 02/03/25 02:00 3 02/03/25 01:00 3 02/03/25 01:00 3 02/03/25 00:00 02/03/25 00:00 3 02/03/25 00:00 3 02/02/25 23:00 3 02/02/25 23:00 3 02/02/25 22:00 3 02/02/25 21:00 3 02/02/25 21:00 3 02/02/25 20:00 02/02/25 20:00 4 02/02/25 20:00 3 02/02/25 19:01 3 02/02/25 18:56 3 02/02/25 18:00 3 02/02/25 17:00 3 02/02/25 17:00 3 02/02/25 16:30 3 02/02/25 16:00 02/02/25 16:00 3 02/02/25 15:00 3 02/02/25 15:00 3 02/02/25 14:00 3 02/02/25 13:00 3 02/02/25 13:00 3 02/02/25 12:00 02/02/25 12:00 3 02/02/25 12:00 3 02/02/25 11:36 3 02/02/25 11:00 3 02/02/25 11:00 3 Intake and Output 02/02/25 02/03/25 02/03/25 23:59 07:59 15:59 Intake Total 866.518 / 2992.060 199 / 961.618 762.618 / 961.618 Output Total 1999 1450 / 2425 975 / 2425 Balance -1133.482 / 644.060 -1251 / -1463.382 -212.382 / -1463.382 Intake: Intake, Oral Amount 720 / 2200 360 / 360 Intake, Total IV Amount 146.518 / 792.060 199 / 601.618 402.618 / 601.618 Heparin Sodium,Porcine/D5w 500 21 / 21 270 / 270 ml @ 1,000 UNITS/HR 20 mls/hr IV .Q25H [facility] Rx#:[id number] Output: Output, Urine Amount 1600 / 1948 1125 / 1775 650 / 1775 Output, Urine Amount (Catheter) 400 / 400 325 / 650 325 / 650 [place] 400 / 400 325 / 650 325 / 650 Other: Number of Unmeasured Voids 0 0 0 Weight 81.74 kg 84.4 kg Patient Weight 02/03/25 23:59 Weight 84.4 kg Laboratory Results - last 24 hr 02/02/25 11:20: POC Glucose 199 H 02/02/25 14:00: Sodium 126 L, Potassium 5.5 H, Chloride 96 L, Carbon Dioxide 23, Anion Gap 12.5, BUN 84 H, Creatinine 5.00 H, Estimated Creat Clear 15, Estimated GFR 11 L*, Est GFR ( Amer) 14 L*, Glucose 178 H D, Calcium 8.5, Total Bilirubin 1.2, AST 2316 H* D, ALT 1778 H*, Alkaline Phosphatase 249 H, Total Protein 6.5, Albumin 3.5, Globulin 3.0, Albumin/Globulin Ratio 1.2 02/02/25 16:13: APTT 31.9 L 02/02/25 16:42: POC Glucose 162 H 02/02/25 16:50: PT 16.2 H, INR 1.51 H 02/02/25 19:31: POC Glucose 259 H 02/02/25 22:44: APTT 63.2, Sodium 126 L, Potassium 5.1, Chloride 95 L, Carbon Dioxide 25, Anion Gap 11.1, BUN 86 H, Creatinine 4.60 H, Estimated Creat Clear 17, Estimated GFR 13 L*, Est GFR ( Amer) 15 L*, Glucose 180 H, Calcium 8.6, Total Bilirubin 1.0, AST 2104 H*, ALT 1946 H*, Alkaline Phosphatase 228 H, Total Protein 6.5, Albumin 3.5, Globulin 3.0, Albumin/Globulin Ratio 1.2 02/03/25 05:41: WBC 8.8 D, RBC 4.12 L, Hgb 11.4 L, Hct 34.1 L, MCV 82.8, MCH 27.7, MCHC 33.4, RDW 15.0, Plt Count 226 D, MPV 10.0, Neut % (Auto) 76.4, Lymph % (Auto) 10.7, [place] % (Auto) 11.6 H, Eos % (Auto) 0.3, Baso % (Auto) 0.3, Neut # (Auto) 6.7, Lymph # (Auto) 0.9, [place] # (Auto) 1.0, Eos # (Auto) 0.0, Baso # (Auto) 0.0, PT 16.4 H, INR 1.53 H, Sodium 127 L, Potassium 4.7, Chloride 96 L, Carbon Dioxide 25, Anion Gap 10.7, BUN 84 H, Creatinine 4.70 H, Estimated Creat Clear 17, Estimated GFR 12 L*, Est GFR ( Amer) 15 L*, Glucose 140 H D, Calcium 8.6, Magnesium 2.3, Total Bilirubin 1.1, AST 1988 H*, ALT 1999 H*, Alkaline Phosphatase 259 H, Total Protein 6.7, Albumin 3.6, Globulin 3.1, Albumin/Globulin Ratio 1.2 02/03/25 08:09: APTT 58.9 I & O for Labs for Last 24 Hours: Intake & Output 01/31/25 02/01/25 02/02/25 02/03/25 23:59 23:59 23:59 23:59 Intake Total 1180 / 1180 451.357 / 0331.271 8865.060 / 2992.060 961.618 / 961.618 Output Total 900 / 900 735 / 735 2348 / 2348 2425 / 2425 Balance 280 / 280 -283.643 / 716.357 644.060 / 644.060 -1463.382 / -1463.382 Weight 80.785 kg 81.737 kg 81.74 kg 84.4 kg Constitutional: Present mild distress, average body habitus, chronically ill appearing and cooperative Head: Present atraumatic and normocephalic ENT: Present normal exam Respiratory: Present normal respiratory effort; Absent rhonchi, wheezes or crackles Cardiac: Present Reg Rate and Rhythm GI: Present soft, distention, tenderness (Mild right upper quadrant) and normal bowel sounds Extremities: Present normal inspection and full ROM; Absent edema Skin: Present intact and pallor; Absent erythema or mottling Comment:: Pulses weak in extremities Neuro: Present Grossly Intact, alert, awake, oriented x 3 and moves all extremities Assessment and Plan *Assessment and plan (1) Cardiogenic shock: Status: Acute Category: Medical Code(s): R57.0 - Cardiogenic shock (2) Acute on chronic HFrEF (heart failure with reduced ejection fraction): Status: Acute Category: Medical Code(s): I50.23 - Acute on chronic systolic (congestive) heart failure (3) Atrial fibrillation with RVR: Status: Acute Category: Medical Code(s): I48.91 - Unspecified atrial fibrillation (4) Ischemic cardiomyopathy: Status: Acute Category: Medical Code(s): I25.5 - Ischemic cardiomyopathy (5) Hypothyroidism (acquired): Status: Acute Category: Medical Code(s): E03.9 - Hypothyroidism, unspecified (6) DM type 2 (diabetes mellitus, type 2): Status: Acute Qualifiers: Diabetes mellitus complication status: with other specified complication Diabetes mellitus retirement insulin use: without technician terminal and repeater use Qualified Code(s): E11.69 - Type 2 diabetes mellitus with other specified complication Category: Medical Code(s): E11.9 - Type 2 diabetes mellitus without complications (7) Pulmonary HTN: Status: Acute Category: Medical Code(s): I27.20 - Pulmonary hypertension, unspecified (8) CKD stage 4 due to type 2 diabetes mellitus: Status: Acute Category: Medical Code(s): E11.22 - Type 2 diabetes mellitus with diabetic chronic kidney disease; N18.4 - Chronic kidney disease, stage 4 (severe) (9) Coronary artery disease: Status: Acute Qualifiers: Associated angina: with other forms of angina Coronary Disease-Associated Artery/Lesion type: bypass graft [place] vs. transplanted heart: [place] heart Qualified Code(s): I25.708 - Atherosclerosis of coronary artery bypass graft(s), unspecified, with other forms of angina pectoris Category: Medical Code(s): I25.10 - Atherosclerotic heart disease of [place] coronary artery without angina pectoris (10) Presence of stent in coronary artery: Status: Acute Category: Surgical Code(s): Z95.5 - Presence of coronary angioplasty implant and graft (11) Hx of CABG: Status: Acute Category: Surgical Code(s): Z95.1 - Presence of aortocoronary bypass graft (12) Shock liver: Status: Acute Category: Medical Code(s): K72.00 - Acute and subacute hepatic failure without coma Plan Zackary Carrasco is a 74-year-old male with a medical history significant for A-fib, HFrEF, CAD/CABG, NSTEMI, CKD stage IV, hypertension, type 2 diabetes, BPH, GERD who presents with progressive shortness of breath, leg swelling. Patient was recently admitted to our facility last month for similar symptoms. He states he has been adherent to his medications. In the ED, patient's heart rate 120s/130s with A-fib. Cardioversion performed morning of 02/01. Tolerated well. Shock improving on milrinone drip with diuresis. Having good response. Continues to require ICU level care, cardiology assisting with care. Patient's condition is critical, prognosis guarded. Kidney and liver function remains abnormal but stable. Problems addressed as follows: # Cardiogenic shock #Acute on chronic HFrEF # A-flutter RVR, status post cardioversion, now in sinus rhythm ? Presented with progressive shortness of breath, volume overload. BNP 15,400. Patient states he has been adherent to his medications, though he lives alone and family questions this. ? Patient initially treated with amiodarone drip for A-fib RVR, was discontinued. Attempts to resume beta-cholo showed clinical signs of cardiogenic shock. Patient was cardioverted on 02/01 with good results. Developed decompensation state over the next 12 hours. - Initiated on amiodarone drip after cardioversion and has maintained sinus rhythm. Will continue p.o. amiodarone 400 mg 3 times a day - Continue milrinone drip at 250 mcg - Taken for right heart cath today, severely elevated pressures. Cardiology recommends initiating dobutamine drip at 5 mcg, initiate nitroprusside drip if systolic blood pressure remains above 135. -Continue aggressive diuresis, has diuresed well through the day. -5 L in the past 24 hours. -Continue heparin drip - Repeat echocardiogram obtained 02/02 showing EF of 10 to 15%. Ejection fraction 30% 1 month ago -Given worsening LIANE/ATN, will hold hydralazine, Jardiance, spironolactone Transaminitis in the setting of cardiogenic shock and amiodarone therapy - Liver enzymes remain elevated but trending down from yesterday, , bilirubin 1.1, AST 1987, ALT 1978, INR elevated at 1.5. Repeat CMP ordered every 12 hours to trend liver enzymes - Hold statin in setting of elevated liver enzymes #LIANE on CKD stage IV #Hyperkalemia - Bilateral renals were normal on cath 12/2024 - Baseline creatinine 2.2-2.4. Creatinine down from 5 yesterday to 4.7, BUN 84, having good urine outpt on bumex gtt - Repeat levels ordered for this afternoon with initiation of Bumex drip. Sodium 127, magnesium 2.3, potassium 4.7 - Caution with nephrotoxins, renally dose medication - Repeat CBC, CMP, magnesium ordered for the morning, repeat CMP ordered for 6PM to monitor kidney function, electrolytes, liver function #CAD s/p CABG 2017, LUKE 2021 #CKD stage IV ? Continue aspirin 81 mg, clopidogrel 75 mg; holding atorvastatin 80 mg. #Hypothyroidism: TSH subtherapeutic 11.8. Continue home levothyroxine 88 mcg. #Type 2 diabetes: Continue insulin glargine decreased to 10 units tonight. Holding Jardiance. Continue low-dose sliding scale insulin with fingersticks ACHS. #BPH: Continue home finasteride 5 mg. #GERD: Continue home PPI. DNR/DNI Heparin drip Diabetic diet ICU/Critical care attestation This patient is critically ill with 35 minutes devoted solely to this patient managing life/organ supporting interventions that required physician assessment. This includes time spent making adjustments in ventilator settings, IV fluid administration, titration of pressors, adjustments of medications, discussion of patient with consultants and other care providers as well as updating patient and/or family (if patient by virtue of his/her condition is unable to participate in decision making). This does not include time spent performing separately billed procedures. Time is not concurrent with that of other providers.
[2025-02-03 11:25] LABS: POC Glucose,Bedside 307 (70-110)
[2025-02-03] MEDS: humaLOG 100 UNITS/ML 10ML VIAL (SSI) SUBCUT ×3 (11:28→21:23)
--- NOTE | 2025-02-03 12:22 | PC.NURSE ---
1020 pt o2 was 100 on 3lpm, dr madison decreased pt o2 to 1.5lpm 1220 pt o2 was 100 on 1.5lpm. pt placed on room air at this time by rosa
[2025-02-03] MEDS: ISOSORBIDE DINITRATE 10 MG TABLET PO (13:40)
[2025-02-03 15:23] LABS: PTT Heparin (inpatient only) 55.4 Seconds (50-75)
[2025-02-03 16:23] LABS: POC Glucose,Bedside 225 (70-110)
[2025-02-03] MEDS: HEPARIN SODIUM,PORCINE/D5W 500 ML 20 UNIT IV (17:06)
--- NOTE | 2025-02-03 17:09 | PC.NURSE ---
pt left the floor via stretcher to animal laboratory technician @[id number]
[2025-02-03 17:24] LABS: Albumin Level 3.8 g/dl (3.5-5.0); Chloride 90 mmol/L (98-107); Potassium 4.4 mmoL/L (3.5-5.1); Sodium 127 mmol/L (136-145)
[2025-02-03 17:26] LABS: Creatinine Clearance Estimated 17 mL/min (50-200); Estimated Glomerular Filt Rate 12 ml/min (>60); GFR (African American) 15 ML/MIN (>60)
[2025-02-03 17:27] LABS: Albumin/Globulin Ratio 1.2 (1.1-1.8); Alkaline Phosphatase 267 U/L (38-126); Anion Gap 12.4 mEq/L (5-15); Bilirubin,Total 1.3 mg/dl (0.2-1.3); Calcium 8.4 mg/dl (8.4-10.2); Carbon Dioxide 29 mmol/L (22.0-30.0); Globulin 3.3 g/dL (1.3-3.2); Glucose 217 mg/dl (74-100); Total Protein,Serum 7.1 g/dl (6.3-8.2)
[2025-02-03 17:35] LABS: Alanine Aminotransferase 1965 U/L (12-78)
[2025-02-03 17:37] LABS: Blood Urea Nitrogen 82 mg/dl (9-20)
[2025-02-03 17:50] LABS: Aspartate Amino Transferase 1538 U/L (17-59)
[2025-02-03] MEDS: diphenhydrAMINE 50MG/ML VIAL 50 MG IV (18:00)
[2025-02-03] MEDS: HEPARIN 1,000 UNITS/500ML NS (CATH LAB) 3000 UNIT IV (18:00)
[2025-02-03] MEDS: FENTANYL 100MCG/2ML VIAL 50 MCG IV (18:01)
[2025-02-03] MEDS: 0.9 % SODIUM CHLORIDE 500 ML 25 ML IV (18:01)
[2025-02-03] MEDS: MIDAZOLAM HCL 1MG/ML 5ML VIAL 1 MG IV (18:01)
[2025-02-03] MEDS: LIDOCAINE 1% 10ML MDV 10 ML IJ (18:03)
[2025-02-03 18:34] LABS: CATHL Arterial O2 SAT 51.3 % (90-100); CATHL Venous O2 SAT 53.1 % (75-80)
--- NOTE | 2025-02-03 18:42 | PC.NURSE ---
pt arrived back to the floor from medical laboratory technicians via stretcher @[phone]
--- NOTE | 2025-02-03 19:06 | ECG_ITS ---
APPROVED REPORT Exam: Resting ECG HR:90 bpm ECG Measurements Heart Rate [address] 191 P 87 QRSd 114 QRS -60 QT 369 T 76 QTc 417 Conclusion SINUS RHYTHM LEFT AXIS DEVIATION [QRS AXIS < -30] POSSIBLE ANTERIOR MYOCARDIAL INFARCTION , OF INDETERMINATE AGE [30 ms Q WAVE IN V3/V4, OR R < 0.2 mV IN V4] ABNORMAL ECG UNCONFIRMED REPORT Electronically signed by : Roc Fajardo MD 02/06/2025 08:06:01
[2025-02-03] MEDS: DOBUTAMINE HCL/D5W 250 ML 12.66 MG IV (19:26)
--- NOTE | 2025-02-03 20:19 | PC.NURSE ---
1844 pt presented to floor from microbiology lab manager. designer/writer rn present as well. when connecting pt to monitor it was noted that pt heart rhythm appeared different than when he left for cath. lead placement was checked. Dr Lagos was notified. EKG was obtained. 1903 results of ekg were given to md over phone and was notified that after adjusting leads on tele monitor that it the rhythm still appeared slightly altered from previous,
--- NOTE | 2025-02-03 20:26 | PC.NURSE ---
1845 lungs sounds are diminished t/o bowels are active in all quads. pt has cath site to r groin, no bleeding or hematoma noted. pt is slightly difficult to arouse, but pt became more easily rousable during the assessment. pt has central line to r neck.
[2025-02-03 20:33] LABS: POC Glucose,Bedside 157 (70-110)
[2025-02-03] MEDS: PANTOPRAZOLE 40MG TABLET 40 MG PO (21:23)
[2025-02-03] MEDS: INSULIN GLARGINE 100 UNITS/ML 10ML VIAL 10 UNIT SUBCUT (21:23)
[2025-02-03] MEDS: ISOSORBIDE DINITRATE 20 MG TABLET PO (21:24)
[2025-02-03] MEDS: BUMETANIDE 10 MG in 0.9 % SODIUM CHLORIDE 60 ML IV (21:48)
[2025-02-04] VITALS (27 sets, daily range): BP systolic 95–152; BP diastolic 40–61; PULSE 80–112; RESP 15–32; TEMP 36.4–36.9; O2SAT 91–100; BMI 26.9
[2025-02-04 00:29] LABS: Chloride 91 mmol/L (98-107)
[2025-02-04 00:30] LABS: Potassium 4.1 mmoL/L (3.5-5.1); Sodium 128 mmol/L (136-145)
[2025-02-04 00:32] LABS: Creatinine Clearance Estimated 18 mL/min (50-200); Estimated Glomerular Filt Rate 13 ml/min (>60); GFR (African American) 16 ML/MIN (>60)
[2025-02-04 00:33] LABS: Anion Gap 12.1 mEq/L (5-15); Calcium 8.4 mg/dl (8.4-10.2); Carbon Dioxide 29 mmol/L (22.0-30.0); Glucose 144 mg/dl (74-100); Magnesium 1.7 mg/dl (1.6-2.3)
[2025-02-04 00:47] LABS: Blood Urea Nitrogen 81 mg/dl (9-20)
--- NOTE | 2025-02-04 00:49 | PC.NURSE ---
Walker Betancourt APRN notified of critical BUN 81 and creatinine 4.40
[2025-02-04] MEDS: BUMETANIDE 10 MG in 0.9 % SODIUM CHLORIDE 60 ML IV ×3 (02:01→16:53)
[2025-02-04] MEDS: OLANZapine 5 MG ODT TABLET SL (02:27)
[2025-02-04] MEDS: MILRINONE LACTATE 20 MG in 0.9 % SODIUM CHLORIDE 80 ML 6.06 MG IV ×2 (02:44→17:11)
[2025-02-04 06:06] LABS: Basophils % 0.4 % (0.1-2.0); Eosinophils % 0.4 % (0.1-12.0); Hematocrit 34.3 % (42.0-52.0); Hemoglobin 11.5 g/dL (14.1-18.0); Lymphocytes # 0.8 K/mm3 (0.7-4.5); Lymphocytes % 9.9 % (10-50); Mean Corpuscular HGB Conc 33.5 g/dL (31.8-35.4); Mean Corpuscular Hemoglobin 27.6 pg (27.0-31.2); Mean Corpuscular Volume 82.3 fl (80-94); Mean Platelet Volume 9.9 fl (7.4-10.4); Monocytes # 1.1 K/mm3 (0.1-1.0); Monocytes % 14.4 % (1.7-9.3); Neutrophils # 5.8 K/mm3 (1.8-7.8); Neutrophils % 74.5 % (37.0-80.0); Nucleated Red Blood Cells # 0 10^3/uL; Nucleated Red Blood Cells % 0 %; Platelet Count 240 K/mm3 (142-424); Red Blood Count 4.17 M/mm3 (4.60-6.20); Red Cell Distribution Width 14.9 % (11.5-17.5); White Blood Count 7.8 K/mm3 (4.8-10.8)
[2025-02-04 06:16] LABS: Albumin Level 3.5 g/dl (3.5-5.0); Chloride 90 mmol/L (98-107); Potassium 4.3 mmoL/L (3.5-5.1); Sodium 127 mmol/L (136-145)
[2025-02-04 06:18] LABS: INR 1.32 (0.9-1.1); Prothrombin Time 14.4 seconds (10.1-12.5)
[2025-02-04 06:19] LABS: Albumin/Globulin Ratio 1.1 (1.1-1.8); Alkaline Phosphatase 245 U/L (38-126); Anion Gap 12.3 mEq/L (5-15); Bilirubin,Total 1.3 mg/dl (0.2-1.3); Calcium 8.4 mg/dl (8.4-10.2); Carbon Dioxide 29 mmol/L (22.0-30.0); Creatinine Clearance Estimated 17 mL/min (50-200); Estimated Glomerular Filt Rate 13 ml/min (>60); GFR (African American) 16 ML/MIN (>60); Globulin 3.3 g/dL (1.3-3.2); Glucose 208 mg/dl (74-100); Magnesium 1.6 mg/dl (1.6-2.3); Total Protein,Serum 6.8 g/dl (6.3-8.2)
[2025-02-04 06:31] LABS: Alanine Aminotransferase 1627 U/L (12-78)
[2025-02-04 06:31] LABS: POC Glucose,Bedside 195 (70-110)
[2025-02-04] MEDS: humaLOG 100 UNITS/ML 10ML VIAL (SSI) SUBCUT ×4 (06:32→21:03)
[2025-02-04] MEDS: LEVOTHYROXINE 88MCG (0.088MG) TAB 88 MCG PO (06:33)
[2025-02-04 07:19] LABS: Aspartate Amino Transferase 923 U/L (17-59)
[2025-02-04 07:21] LABS: Blood Urea Nitrogen 81 mg/dl (9-20)
[2025-02-04 08:15] LABS: PTT Heparin (inpatient only) 42.3 Seconds (50-75)
--- NOTE | 2025-02-04 08:29 | PC.NURSE ---
Per V Adrian (pharm) increase to 1100 units/hr (22 mls/hr). Pharm to put in for 3000 unit bolus as well. RB+V.
--- NOTE | 2025-02-04 08:30 | EXP.ACUTE.PN ---
Subjective *Date: 02/04/25 *Time: 22:25 Interval history: Eating today, color appears good. Denies nausea or vomiting. Significant urine output, -5.6 L in the past 24 hours, -13 L since admission. Blood pressure 116/55 on morning rounds. On room air. Family at bedside and updated of plan. Medical Exam Vital signs and Labs for Last 24 Hours: Vital Signs Temp Pulse Pulse Resp BP Pulse Ox O2 Del Method 02/04/25 08:00 97.9 F 02/04/25 08:00 108 H 22 116/55 L 96 Room Air 02/04/25 07:00 103 H 24 116/52 L 96 Room Air 02/04/25 06:00 106 H 18 105/52 L 92 L Room Air 02/04/25 05:00 112 H 17 95/50 L 91 L Room Air 02/04/25 05:00 Room Air 02/04/25 04:00 108 H 02/04/25 04:00 98.5 F 104 H 19 126/60 98 Room Air 02/04/25 03:00 Room Air 02/04/25 03:00 101 H 19 124/53 L 93 L Room Air 02/04/25 02:00 110 H 32 H 116/52 L 97 Room Air 02/04/25 01:25 106 H 16 113/54 L 97 02/04/25 01:00 103 H 20 114/53 L 96 Room Air 02/04/25 00:25 107 H 21 133/60 97 02/04/25 00:00 105 H 02/04/25 00:00 103 H 02/04/25 00:00 97.8 F 96 H 24 116/56 L 97 Room Air 02/03/25 23:25 102 H 19 121/59 L 95 02/03/25 22:25 101 H 16 125/64 92 L 02/03/25 21:25 105 H 17 123/66 99 02/03/25 21:00 Room Air 02/03/25 21:00 101 H 21 113/59 L 93 L Room Air 02/03/25 20:55 104 H 19 122/49 L 99 Room Air 02/03/25 20:25 97 H 15 116/65 90 L Room Air 02/03/25 20:00 96 H 02/03/25 20:00 97.7 F 95 H 14 146/88 H 94 L Room Air 02/03/25 20:00 Room Air 02/03/25 20:00 96 H 02/03/25 19:25 87 19 146/78 H 99 Room Air 02/03/25 19:15 87 19 141/76 H 100 Room Air 02/03/25 19:10 87 21 141/76 H 100 Room Air 02/03/25 19:00 96 H 16 146/88 H 100 Room Air 02/03/25 19:00 Room Air 02/03/25 19:00 95 H 20 146/88 H 100 Room Air 02/03/25 18:55 95 H 17 159/85 H 100 Room Air 02/03/25 18:45 95 H 22 141/86 H 100 Room Air 02/03/25 18:42 102 H 22 146/86 H 100 Room Air 02/03/25 18:40 95 H 18 146/86 H 100 Room Air 02/03/25 16:40 80 100 Room Air 02/03/25 16:00 80 02/03/25 16:00 97.6 F 80 16 144/71 H 99 Room Air 02/03/25 15:00 79 16 128/63 95 Room Air 02/03/25 15:00 Room Air 02/03/25 14:00 79 20 124/66 94 L Room Air 02/03/25 13:04 Room Air 02/03/25 13:00 84 18 147/83 H 100 Room Air 02/03/25 12:00 97.7 F 02/03/25 12:00 80 100 Nasal Cannula 02/03/25 12:00 80 02/03/25 12:00 81 16 129/70 100 Nasal Cannula 02/03/25 11:41 Nasal Cannula 02/03/25 11:00 77 19 137/58 L 100 Nasal Cannula 02/03/25 10:06 75 16 153/77 H 99 Nasal Cannula 02/03/25 10:00 81 19 153/77 H 100 Nasal Cannula 02/03/25 09:38 Nasal Cannula 02/03/25 09:26 81 16 145/69 H 100 Nasal Cannula O2 Flow Rate 02/04/25 08:00 02/04/25 08:00 02/04/25 07:00 02/04/25 06:00 02/04/25 05:00 02/04/25 05:00 02/04/25 04:00 02/04/25 04:00 02/04/25 03:00 02/04/25 03:00 02/04/25 02:00 02/04/25 01:25 02/04/25 01:00 02/04/25 00:25 02/04/25 00:00 02/04/25 00:00 02/04/25 00:00 02/03/25 23:25 02/03/25 22:25 02/03/25 21:25 02/03/25 21:00 02/03/25 21:00 02/03/25 20:55 02/03/25 20:25 02/03/25 20:00 02/03/25 20:00 02/03/25 20:00 02/03/25 20:00 02/03/25 19:25 02/03/25 19:15 02/03/25 19:10 02/03/25 19:00 02/03/25 19:00 02/03/25 19:00 02/03/25 18:55 02/03/25 18:45 02/03/25 18:42 02/03/25 18:40 02/03/25 16:40 02/03/25 16:00 02/03/25 16:00 02/03/25 15:00 02/03/25 15:00 02/03/25 14:00 02/03/25 13:04 02/03/25 13:00 02/03/25 12:00 02/03/25 12:00 1.5 02/03/25 12:00 02/03/25 12:00 1.5 02/03/25 11:41 1.5 02/03/25 11:00 1.5 02/03/25 10:06 1.5 02/03/25 10:00 1.5 02/03/25 09:38 3 02/03/25 09:26 3 Intake and Output 02/03/25 02/04/25 02/04/25 23:59 07:59 15:59 Intake Total 340.000 / 1754.402 788.750 / 998.750 210 / 998.750 Output Total 2765 / 7940 1560 / 1560 Balance -2425.000 / -6185.598 -771.250 / -561.250 210 / -561.250 Intake: Intake, Oral Amount 240 / 800 440 / 650 210 / 650 Intake, Total IV Amount 100.000 / 954.402 348.750 / 348.750 Heparin Sodium,Porcine/D5w 500 180 / 180 ml @ 1,000 UNITS/HR 20 mls/hr IV .Q25H [facility] Rx#:[id number] Output: Output, Urine Amount 1475 / 6000 600 / 600 Output, Urine Amount (Catheter) 1290 / 1940 960 / 960 [place] 1290 / 1940 960 / 960 Other: Number of Unmeasured Voids 0 0 0 Weight 82.4 kg Patient Weight 02/04/25 23:59 Weight 82.4 kg Laboratory Results - last 24 hr 02/03/25 08:09: APTT 58.9 02/03/25 11:06: POC Glucose 307 H* 02/03/25 14:53: APTT 55.4 02/03/25 16:05: POC Glucose 225 H 02/03/25 17:02: Sodium 127 L, Potassium 4.4, Chloride 90 L, Carbon Dioxide 29, Anion Gap 12.4, BUN 82 H, Creatinine 4.70 H, Estimated Creat Clear 17, Estimated GFR 12 L*, Est GFR ( Amer) 15 L*, Glucose 217 H D, Calcium 8.4, Total Bilirubin 1.3, AST 1538 H*, ALT 1965 H*, Alkaline Phosphatase 267 H, Total Protein 7.1, Albumin 3.8, Globulin 3.3 H, Albumin/Globulin Ratio 1.2 02/03/25 18:11: ABG O2 Sat (Measured) 51.3 L, POC VBG O2 Sat (Joanne) 53.1 L 02/03/25 19:45: POC Glucose 157 H 02/04/25 00:10: Sodium 128 L, Potassium 4.1, Chloride 91 L, Carbon Dioxide 29, Anion Gap 12.1, BUN 81 H, Creatinine 4.40 H, Estimated Creat Clear 18, Estimated GFR 13 L*, Est GFR ( Amer) 16 L*, Glucose 144 H D, Calcium 8.4, Magnesium 1.7 D 02/04/25 05:52: POC Glucose 195 H 02/04/25 05:53: WBC 7.8, RBC 4.17 L, Hgb 11.5 L, Hct 34.3 L, MCV 82.3, MCH 27.6, MCHC 33.5, RDW 14.9, Plt Count 240, MPV 9.9, Neut % (Auto) 74.5, Lymph % (Auto) 9.9 L, [place] % (Auto) 14.4 H, Eos % (Auto) 0.4, Baso % (Auto) 0.4, Neut # (Auto) 5.8, Lymph # (Auto) 0.8, [place] # (Auto) 1.1 H, Eos # (Auto) 0.0, Baso # (Auto) 0.0, PT 14.4 H, INR 1.32 H, Sodium 127 L, Potassium 4.3, Chloride 90 L, Carbon Dioxide 29, Anion Gap 12.3, BUN 81 H, Creatinine 4.50 H, Estimated Creat Clear 17, Estimated GFR 13 L*, Est GFR ( Amer) 16 L*, Glucose 208 H D, Calcium 8.4, Magnesium 1.6, Total Bilirubin 1.3, AST 923 H* D, ALT 1627 H*, Alkaline Phosphatase 245 H, Total Protein 6.8, Albumin 3.5, Globulin 3.3 H, Albumin/Globulin Ratio 1.1 02/04/25 06:00: APTT 42.3 L I & O for Labs for Last 24 Hours: Intake & Output 02/01/25 02/02/25 02/03/25 02/04/25 23:59 23:59 23:59 23:59 Intake Total 451.357 / 1165.887 2852.060 / 2992.060 1554.402 / 1754.402 998.750 / 998.750 Output Total 735 / 735 2348 / 2348 7790 / 7940 1560 / 1560 Balance -283.643 / 716.357 644.060 / 644.060 -6235.598 / -6185.598 -561.250 / -561.250 Weight 81.737 kg 81.74 kg 84.4 kg 82.4 kg Constitutional: Present mild distress, average body habitus, chronically ill appearing and cooperative Head: Present atraumatic and normocephalic ENT: Present normal exam Respiratory: Present normal respiratory effort; Absent rhonchi, wheezes or crackles Cardiac: Present Reg Rate and Rhythm GI: Present soft, distention, tenderness (Mild right upper quadrant) and normal bowel sounds Extremities: Present normal inspection and full ROM; Absent edema Skin: Present intact and pallor; Absent erythema or mottling Comment:: Pulses weak in extremities Neuro: Present Grossly Intact, alert, awake, oriented x 3 and moves all extremities Assessment and Plan *Assessment and plan (1) Cardiogenic shock: Status: Acute Category: Medical Code(s): R57.0 - Cardiogenic shock (2) Acute on chronic HFrEF (heart failure with reduced ejection fraction): Status: Acute Category: Medical Code(s): I50.23 - Acute on chronic systolic (congestive) heart failure (3) Atrial fibrillation with RVR: Status: Acute Category: Medical Code(s): I48.91 - Unspecified atrial fibrillation (4) Ischemic cardiomyopathy: Status: Acute Category: Medical Code(s): I25.5 - Ischemic cardiomyopathy (5) Hypothyroidism (acquired): Status: Acute Category: Medical Code(s): E03.9 - Hypothyroidism, unspecified (6) DM type 2 (diabetes mellitus, type 2): Status: Acute Qualifiers: Diabetes mellitus complication status: with other specified complication Diabetes mellitus call center support consultant insulin use: without call center support consultant use Qualified Code(s): E11.69 - Type 2 diabetes mellitus with other specified complication Category: Medical Code(s): E11.9 - Type 2 diabetes mellitus without complications (7) Pulmonary HTN: Status: Acute Category: Medical Code(s): I27.20 - Pulmonary hypertension, unspecified (8) CKD stage 4 due to type 2 diabetes mellitus: Status: Acute Category: Medical Code(s): E11.22 - Type 2 diabetes mellitus with diabetic chronic kidney disease; N18.4 - Chronic kidney disease, stage 4 (severe) (9) Coronary artery disease: Status: Acute Qualifiers: Associated angina: with other forms of angina Coronary Disease-Associated Artery/Lesion type: bypass graft [place] vs. transplanted heart: [place] heart Qualified Code(s): I25.708 - Atherosclerosis of coronary artery bypass graft(s), unspecified, with other forms of angina pectoris Category: Medical Code(s): I25.10 - Atherosclerotic heart disease of [place] coronary artery without angina pectoris (10) Presence of stent in coronary artery: Status: Acute Category: Surgical Code(s): Z95.5 - Presence of coronary angioplasty implant and graft (11) Hx of CABG: Status: Acute Category: Surgical Code(s): Z95.1 - Presence of aortocoronary bypass graft (12) Shock liver: Status: Acute Category: Medical Code(s): K72.00 - Acute and subacute hepatic failure without coma Plan Zackary Carrasco is a 74-year-old male with a medical history significant for A-fib, HFrEF, CAD/CABG, NSTEMI, CKD stage IV, hypertension, type 2 diabetes, BPH, GERD who presents with progressive shortness of breath, leg swelling. Patient was recently admitted to our facility last month for similar symptoms. He states he has been adherent to his medications. In the ED, patient's heart rate 120s/130s with A-fib. Cardioversion performed morning of 02/01. Tolerated well. Shock appears to with adequate management. Continuing aggressive diuresis. Having good response. Continues to require ICU level care, cardiology assisting with care. Patient's condition is critical, prognosis guarded. Kidney and liver function remains abnormal but stable. Problems addressed as follows: # Cardiogenic shock #Acute on chronic HFrEF # A-flutter RVR, status post cardioversion, now in sinus rhythm ? Presented with progressive shortness of breath, volume overload. BNP 15,400. Patient states he has been adherent to his medications, though he lives alone and family questions this. ? Patient initially treated with amiodarone drip for A-fib RVR, was discontinued. Attempts to resume beta-cholo showed clinical signs of cardiogenic shock. Patient was cardioverted on 02/01 with good results. Developed decompensation state over the next 12 hours. - Continue p.o. amiodarone 400 mg 3 times a day - Continue milrinone drip at 250 mcg, continue dobutamine 5 mcg, initiate nitroprusside. Continue Bumex, decreased to 1 mg/h IV. -Right heart cath yesterday showed severely elevated pressures. Discussed case with cardiology, recommended aggressive diuresis until kidney function bumps. Goal MAP greater than 65. -Continue heparin drip - Repeat echocardiogram obtained 02/02 showing EF of 10 to 15%. Ejection fraction 30% 1 month ago -Given worsening LIANE/ATN, will hold hydralazine, Jardiance, spironolactone Transaminitis in the setting of cardiogenic shock and amiodarone therapy - Liver enzymes remain elevated but trending down; bilirubin 1.3, AST 923, ALT 1627, alk phos 245. INR improving at 1.3. - Repeat CMP ordered every 12 hours to trend liver enzymes - Hold statin in setting of elevated liver enzymes #LIANE on CKD stage IV #Hyperkalemia - Bilateral renals were normal on cath 12/2024 - Baseline creatinine 2.2-2.4. Creatinine showing slight improvement at 4.5, BUN 81. Magnesium 1.6, potassium 4.3 - Caution with nephrotoxins, renally dose medication - Repeat CBC, CMP, magnesium ordered for the morning, repeat CMP ordered for 6PM to monitor kidney function, electrolytes, liver function #CAD s/p CABG 2017, LUKE 2021 #CKD stage IV ? Continue aspirin 81 mg, clopidogrel 75 mg; holding atorvastatin 80 mg. #Hypothyroidism: TSH subtherapeutic 11.8. Continue home levothyroxine 88 mcg. #Type 2 diabetes: Continue insulin glargine decreased to 10 units tonight. Holding Jardiance. Continue low-dose sliding scale insulin with fingersticks ACHS. #BPH: Continue home finasteride 5 mg. #GERD: Continue home PPI. DNR/DNI Heparin drip Diabetic diet ICU/Critical care attestation This patient is critically ill with 35 minutes devoted solely to this patient managing life/organ supporting interventions that required physician assessment. This includes time spent making adjustments in ventilator settings, IV fluid administration, titration of pressors, adjustments of medications, discussion of patient with consultants and other care providers as well as updating patient and/or family (if patient by virtue of his/her condition is unable to participate in decision making). This does not include time spent performing separately billed procedures. Time is not concurrent with that of other providers.
[2025-02-04] MEDS: HEPARIN SODIUM,PORCINE/D5W 500 ML 22 UNIT IV ×2 (08:33→14:03)
[2025-02-04] MEDS: HEPARIN SODIUM 5,000 UNIT/ML VIAL 3000 UNIT IV (09:00)
[2025-02-04] MEDS: ISOSORBIDE DINITRATE 20 MG TABLET PO (09:01)
[2025-02-04] MEDS: AMIODARONE 200MG TABLET 400 MG PO ×3 (09:03→21:04)
[2025-02-04] MEDS: CLOPIDOGREL 75MG TAB 75 MG PO (09:04)
[2025-02-04] MEDS: ASPIRIN EC 81MG TABLET 81 MG PO (09:04)
--- NOTE | 2025-02-04 10:21 | P.CONCA_ITS ---
History of Present Illness History of Present Illness Consult date: 02/04/25 Requesting physician: Kurt Lagos Chief complaint: soa History of present illness: Patient is status post right heart cath see report below. Patient remains on mi lrinone and Bumex drip. Dobutamine added yesterday. Continues to have good urine output diuresing at least 200 mL/h. Morning labs reviewed and stable. Patient denies chest pain reports his shortness of breath is improving. Right heart cath 02/03/2025 ANGIOGRAPHIC RESULTS Right atrial pressure 20 mmHg Pulmonary artery pressure 65/30 mmHg Pulmonary artery occlusion pressure 25 mmHg Right atrial saturation 53% Pulmonary artery saturation 51% Aortic saturation 94% Hemoglobin 11.4 Cardiac output 3.8 L/min Cardiac index 1.9 IMPRESSION Low cardiac output Persistent biventricular failure PLAN 1. Continue milrinone 2. Continue diuresis PFSH PFS Disclaimer: The information contained in this section may have been updated after the patient was seen, as this information can be updated by other users. Medical History (Updated 02/03/25 @ 10:58 by Kurt Lagos MD) Calf cramp Elevated troponin New onset of congestive heart failure CHF (congestive heart failure) Sinus tachycardia Dyspnea B12 deficiency Painful urination Screening for prostate cancer Screening for HIV (human immunodeficiency virus) Encounter for HCV screening test for low risk patient Colon cancer screening Right flank pain Proteinuria Foreign body in left ear Hearing loss LOM (left otitis media) Dermatitis Tympanosclerosis, right ear Left serous otitis media Acute left otitis media Dizziness Otitis media Left elbow fracture Decreased mobility Right hip pain Acute cystitis without hematuria Dysuria Injury of left elbow Injury due to fall Left elbow pain Laceration of lip Inguinal hernia bilateral, non-recurrent Abnormal cardiovascular stress test PAF (paroxysmal atrial fibrillation) CKD stage 4 due to type 2 diabetes mellitus Typical angina Coronary artery disease Stroke Fall Head injury COVID-19 Surgical History (Updated 01/24/25 @ 16:35 by Melissa Vu RN) History of tonsillectomy History of appendectomy Hx of cholecystectomy History of colonoscopy Presence of stent in coronary artery Hx of CABG Family History Other No significant family history Social History (Updated 01/24/25 @ 16:36 by Melissa Vu RN) Smoking Status: Former smoker tobacco type: cigarettes packs per day: 1 alcohol intake: never substance use type: denies use current occupational status: employed Travel in the last 8 weeks?: Inside the [place] household members: spouse housing: house current occupation: [employer] current occupational exposures/hazards: No caffeine: Yes Review of Systems Review of Systems Review of systems:: pertinent systems reviewed and negative unless documented below Exam Data for Last 24 hours Vital signs and Labs for Last 24 Hours: Temp Pulse Resp BP Pulse Ox O2 Del Method O2 Flow Rate 97.9 F 108 H 17 109/40 L 97 Room Air 1.5 02/04/25 08:00 02/04/25 10:20 02/04/25 10:20 02/04/25 10:20 02/04/25 10:20 02/04/25 10:20 02/03/25 12:00 Laboratory Results - last 24 hr 02/03/25 11:06: POC Glucose 307 H* 02/03/25 14:53: APTT 55.4 02/03/25 16:05: POC Glucose 225 H 02/03/25 17:02: Sodium 127 L, Potassium 4.4, Chloride 90 L, Carbon Dioxide 29, Anion Gap 12.4, BUN 82 H, Creatinine 4.70 H, Estimated Creat Clear 17, Estimated GFR 12 L*, Est GFR ( Amer) 15 L*, Glucose 217 H D, Calcium 8.4, Total Bilirubin 1.3, AST 1538 H*, ALT 1965 H*, Alkaline Phosphatase 267 H, Total Protein 7.1, Albumin 3.8, Globulin 3.3 H, Albumin/Globulin Ratio 1.2 02/03/25 18:11: ABG O2 Sat (Measured) 51.3 L, POC VBG O2 Sat (Joanne) 53.1 L 02/03/25 19:45: POC Glucose 157 H 02/04/25 00:10: Sodium 128 L, Potassium 4.1, Chloride 91 L, Carbon Dioxide 29, Anion Gap 12.1, BUN 81 H, Creatinine 4.40 H, Estimated Creat Clear 18, Estimated GFR 13 L*, Est GFR ( Amer) 16 L*, Glucose 144 H D, Calcium 8.4, Magnesium 1.7 D 02/04/25 05:52: POC Glucose 195 H 02/04/25 05:53: WBC 7.8, RBC 4.17 L, Hgb 11.5 L, Hct 34.3 L, MCV 82.3, MCH 27.6, MCHC 33.5, RDW 14.9, Plt Count 240, MPV 9.9, Neut % (Auto) 74.5, Lymph % (Auto) 9.9 L, [place] % (Auto) 14.4 H, Eos % (Auto) 0.4, Baso % (Auto) 0.4, Neut # (Auto) 5.8, Lymph # (Auto) 0.8, [place] # (Auto) 1.1 H, Eos # (Auto) 0.0, Baso # (Auto) 0.0, PT 14.4 H, INR 1.32 H, Sodium 127 L, Potassium 4.3, Chloride 90 L, Carbon Dioxide 29, Anion Gap 12.3, BUN 81 H, Creatinine 4.50 H, Estimated Creat Clear 17, Estimated GFR 13 L*, Est GFR ( Amer) 16 L*, Glucose 208 H D, Calcium 8.4, Magnesium 1.6, Total Bilirubin 1.3, AST 923 H* D, ALT 1627 H*, Alkaline Phosphatase 245 H, Total Protein 6.8, Albumin 3.5, Globulin 3.3 H, Albumin/Globulin Ratio 1.1 02/04/25 06:00: APTT 42.3 L I & O for Last 24 hours: Intake & Output 02/01/25 02/02/25 02/03/25 02/04/25 23:59 23:59 23:59 23:59 Intake Total 451.357 / 7072.797 3082.060 / 2992.060 1554.402 / 1754.402 998.750 / 998.750 Output Total 735 / 735 2348 / 2348 7790 / 7940 1795 / 1795 Balance -283.643 / 716.357 644.060 / 644.060 -6235.598 / -6185.598 -796.250 / - 796.250 Weight 180 lb 3.2 oz 180 lb 3.293 oz 186 lb 1.122 oz 181 lb 10.574 oz Constitutional Constitutional: no acute distress *Routine Respiratory Exam Respiratory: Present CTA bilaterally and symmetric chest movement *Routine Cardiovascular Exam Cardiovascular: Present RRR, Normal S1 and Normal S2 *Routine Abdominal Exam Abdominal: Present soft and normoactive bowel sounds; Absent tenderness *Routine Extremities Exam Extremities: Present full ROM and normal capillary refill; Absent edema *Routine Skin Exam Skin: Present intact, dry and warm Detailed Neck Exam: Thyroids Thyroid: Absent bruit Meds Home Medications and Allergies Home Medications ?Medication ?Instructions ?Recorded ?Confirmed ?Type aspirin 81 mg tablet,delayed 81 mg PO DAILY #90 tabs 12/08/24 01/24/25 Rx release (Adult Low Dose Aspirin) cholecalciferol (vitamin D3) 1,250 1,250 mcg PO WEEKLY 90 days #13 12/08/24 01/24/25 Rx mcg (50,000 unit) oral wafer wafers ferrous sulfate 325 mg (65 mg 325 mg PO DAILY #90 tabs 12/08/24 01/24/25 Rx iron) tablet insulin lispro 100 unit/mL 1 sliding scale dose SQ 12/08/24 01/24/25 Rx subcutaneous pen USEASDIRECTD #15 mL empagliflozin 10 mg tablet 10 mg PO DAILY #90 tabs 12/14/24 01/24/25 Rx (Jardiance) levothyroxine 88 mcg tablet 88 mcg PO DAILY 12/22/24 01/24/25 History melatonin 3 mg capsule 3 mg PO HS PRN Sleep 12/22/24 01/24/25 History atorvastatin 40 mg tablet 40 mg PO HS 12/23/24 01/24/25 History clopidogrel 75 mg tablet 75 mg PO DAILY 12/23/24 01/24/25 History omeprazole 40 mg capsule,delayed 40 mg PO DAILY 12/23/24 01/24/25 History release hydralazine 25 mg tablet 25 mg PO TID 30 days #90 tabs 12/28/24 01/24/25 Rx bumetanide 0.5 mg tablet 0.5 mg PO DAILY 01/24/25 01/24/25 History isosorbide dinitrate 20 mg tablet 20 mg PO TID 01/24/25 01/24/25 History metoprolol succinate 25 mg 25 mg PO DAILY 01/24/25 01/24/25 History tablet,extended release 24 hr New Prescriptions to Start Prescriptions: Allergies Allergy/AdvReac Type Severity Reaction Status Date / Time amoxicillin Allergy Rash Verified 12/31/24 11:39 Penicillins Allergy Rash Verified 12/31/24 11:39 Assessment and Plan *Assessment and plan (1) Shock liver: Status: Acute Category: Medical Code(s): K72.00 - Acute and subacute hepatic failure without coma (2) Cardiogenic shock: Status: Acute Category: Medical Code(s): R57.0 - Cardiogenic shock (3) Ischemic cardiomyopathy: Status: Acute Category: Medical Code(s): I25.5 - Ischemic cardiomyopathy (4) Acute on chronic HFrEF (heart failure with reduced ejection fraction): Status: Acute Category: Medical Code(s): I50.23 - Acute on chronic systolic (congestive) heart failure (5) PAF (paroxysmal atrial fibrillation): Status: Acute Category: Medical Code(s): I48.0 - Paroxysmal atrial fibrillation (6) CKD stage 4 due to type 2 diabetes mellitus: Status: Acute Category: Medical Code(s): E11.22 - Type 2 diabetes mellitus with diabetic chronic kidney disease; N18.4 - Chronic kidney disease, stage 4 (severe) Plan Cardiogenic shock Acute on chronic HFrEF Transaminitis in the setting of cardiogenic shock Likely secondary to low output state after conversion to NSR Liver enzymes continue to improve. Today AST is 923 and ALT 1627 Has diuresed over 5.6L in 24 hours. Continues to diurese at least 200 mL/h Continue Bumex at 1 mg/h until kidney function starts to worsen then can transition to IV dosing twice daily Continue dobutamine drip Start Nipride drip for elevated SVR greater than 2000. Continue nipride drip as long as MAP is above 65. Contact cardiology service prior to stopping Preliminary echo shows an estimated EF of 10 to 15% Status post right heart cath yesterday which shows low cardiac output and persistent biventricular failure, see report above History of paroxysmal atrial fibrillation History of A-fib RVR Elevated d-dimer on admission Patient remains in normal sinus rhythm status post CLAUDINE cardioversion Beta-cholo on hold due to cardiogenic shock History of hematuria on OAC. Continue heparin Continue amiodarone 400mg TID. Elevated D-dimer on admission, VQ scan low probability for PE Coronary artery disease Status post CABG in 2018 Status post stenting Last drug-eluting stent placed 09/2024 Left heart cath 12/27/2024 showed stable coronary disease. Continue aspirin, Plavix. Statin on hold due to elevated liver enzymes Acute on chronic kidney disease Bilateral renals were normal on cath 12/2024 Baseline creatinine 2.2-2.4. Creatinine 4.5 today CV summary 02/04/2025: Patient is status post right heart cath yesterday which shows a low cardiac output state with persistent biventricular failure. EF 10 to 15%. Continue milrinone and Bumex drips over the weekend. Bumex drip should continue until creatinine starts to elevate again. At that time can switch Bumex drip to Bumex IV twice daily. Continue dobutamine drip and Nipride drip as long as MAP remains above 65. Please contact cardiology service prior to stopping any drips. Patient has had an output of 5.6 L in the last 24 hours and continues to diurese 200 mL/h. Cardiac meds: Aspirin 81 mg p.o. daily Atorvastatin 40 mg p.o. daily-on hold due to elevated liver enzymes Plavix 75 mg daily Heparin drip Toprol 25 mg day-on hold due to cardiogenic shock Nipride drip Milrinone drip Dobutamine drip Bumex drip
--- NOTE | 2025-02-04 10:24 | PC.NURSE ---
Recieved call from Macey Gupta (cards) states that Dr. Lees wishes to start pt on Nipride gtt @ 0.3 mcg/kg/min, continue this as long as SBP>65. RB+V.
--- NOTE | 2025-02-04 10:30 | HMH.OTEV ---
OT Inpatient Evaluation Rehab OT IP Evaluation Start: 02/04/25 09:44 Freq: ONCE Status: Active Protocol: Document 02/04/25 10:23 [facility] [place] (Rec: 02/04/25 10:30 [facility] [place] [id number]) Rehab OT IP Assessment Subjective History Pt oriented x 3 on arrival. Pt agreeable to engage in therapy evaluation. Pt admitted on 01/24/25 due to A- flutter and SOB. History and physical: Zackary Carrasco is a 74-year-old male with a medical history significant for A-fib, HFrEF, CAD/CABG, NSTEMI, CKD stage IV , hypertension, type 2 diabetes, BPH, GERD who presents with progressive shortness of breath, leg swelling. Patient was recently admitted to our facility last month for similar symptoms. He states he has been adherent to his medications. In the ED, patient's heart rate 120s/130s with A-fib. Patient was initiated on amiodarone drip. Workup also consistent with HFrEF exacerbation, BNP 15,400 with gross signs of volume overload. Case discussed with ED provider and decision was made to admit patient for A- fib RVR, HFrEF exacerbation. Subjective I was able to do what I needed. Prior to being in the hospital , pt lived with his son. 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 Pt claims usually he is independent with all ADLs and simple IADLs. He uses a rollator to complete functional transfers. Objective Patient Orientation Person,Place,Birthday Right Upper Extremity Gross ROM Min Limitation <25% Left Upper Extremity Gross ROM Min Limitation <25% Shoulder ROM Limitations Muscle Weakness Elbow ROM Limitations Muscle Weakness Wrist Limitations of Range of Motion Muscle Weakness Bed Mobility bed mobility-scooting,bed mobility - supine/sit Assist Level Minimal x 2 (25% assist) Transfer Training Sit/Stand/Step Transfer Assist Level Minimal x 1 (25% assist) Chair Transfer Technique Stand Step Pivot Chair Transfer Assistive Devices Rolling Walker Rehab OT IP prob,goals,plan Problems Date of Evaluation: 02/04/25 OT IP Problems Bed Mobility,Transfers,Balance ,Self care,Safety Rehab Potential Rehab Potential Good Equipment Needs Assistive Devices Rolling / Wheeled Walker Plan OT intervention Plan Bed Mobility,Transfers,Balance ,Self care,Safety,Therapeutic Exercise OT Plan Frequency Daily Duration LOS Discharge Goals Bed Mobility Ability Standby Assistance Sit to Stand Chair Transfer Ability Contact Guard/Hand Hold Chair Transfer Ability Contact Guard/Hand Hold Chair Transfer Technique Sit to/from Ambulatory Chair Transfer Assistive Devices Rolling Walker Lower Body Dressing Ability Minimal Assistance Upper Body Dressing Ability Contact Guard Bathing Ability Minimal Assistance Performing Toilet Hygiene Ability Minimal Assistance Overall Commode/Toilet Transfer Ability Contact Guard,Minimal Assistance Commode/Toilet Transfer Technique Sit to/from Ambulatory Oral Care Assist Contact Guard Decrease in Endurance Yes Discharge Plan OT Discharge Plan Pt will continue to be seen for OT services while at [facility]. At this time, pt is most appropriate for short term rehab at [facility]. Continued skilled therapy is important in order for patient to improve strength, safety, endurance, ADL independence, and functional transfers to reach PLOF. Eval Complexity Eval Charge Codes 33423 - Moderate Complexity PHYSICIAN CERTIFICATION: I certify the specified therapy services for Zackary Carrasco are required, authorized, and reviewed every 30 days.
--- NOTE | 2025-02-04 10:57 | HMH.SLDYSPHA ---
Speech & Language Evaluation Speech/Language Dysphagia Evaluation Start: 02/04/25 10:26 Freq: ONCE Status: Active Protocol: Document 02/04/25 10:26 [facility] ([facility]04[facility]25 10[id number] Dysphagia Assess/Goals/Plan Assessment Date of Evaluation: 02/04/25 Evaluation Type Initial Certification Assessment/Problems concerns for aspiration per MD order Does Patient Qualify for Service No Qualify/Failure Comment Based on clinical observations made throughout clinical bedside swallow evaluation, Mr Rosibel Remy mastication and manipulation of the bolus and swallowing appear to be WFL and no further skilled speech therapy services are warranted at this time. Recommendations PHYSICIAN CERTIFICATION: The specified therapy services are required, authorized, and reviewed every 30 days. Diet Recommendations Normal Liquid Type Recommendations Normal/Thin SL Swallow Guidelines Alt bite w/sip thru meal, Standard Aspiration Prec.,Eat at slow rate,Reflux precautions Dysphagia Swallow Precautions/Strategies Sitting Upright (90 deg),Small Bites and Sips,Alternate Liquids/Solids Plan Pt/Guardian verbally ack understanding Yes of dx/prognosis/goals G -code Required No Education Instructions provided Discussed CSE results, diet recommendations, and reviewed aspiration precautions/ compensatory strategies with pt, nursing, and care management all of which expressed understanding. Pt/Caregiver able to recall information Able to recall/restate Reinforcement needed No Speech & Language HPI History Present Illness Description of Patient Problem RAIL ENGINEER pulled following information from chart review and H&P, 74-year-old male presents to the emergency department via EMS for shortness of breath, that for started on Friday, worsened around 8 AM this morning, denies any fever chills cough congestion sore throat, denies any chest pain, denies any abdominal pain, did have an episode of nausea and some phelmgn this morning but no real vomiting episode, diarrhea no constipation, no urinary type symptomatology, patient is a former smoker, has other past medical history consistent with paroxysmal atrial fibrillation on anticoagulant therapy, artery stenosis, pulmonary hypertension, CHF with last echocardiogram revealing an ejection fraction of 30%, in December 2024, CKD, type 2 diabetes, coronary artery disease status post 3-4 stent placements, and x 2 CABG and ablation therapy however this is data deficient, hypothyroidism, presbycusis, patient is on dual antiplatelet therapy with Plavix aspirin, hyperlipidemia . History of vitals notable for tachycardia to 130 bpm, SpO2 within normal limits, BP stable at this time. Also of note, discussing this with the patient's family with the bedside, patient was recently given a LifeVest , per cardiology, he has not been wearing this due to uncomfortable fit. Patient also endorses a 3 to 5 pound weight gain over the last several days. General Information General Current Food Consistancy Mechanical Soft,Thin Liquids Dentition Good Dentition Patient Orientation Person,Place,Time,Situation Ability to Follow Directions Good Communication Ability No Impairment Dysphagia:Food Presentation Evaluation Food Type Pureed,Mechanical Soft,Regular ,Liquid,Pudding Dysphagia Evaluation Summary Pt was seen sitting upright in the chair this morning following being seen by PT/OT. Nursing, PT and OT were present in room for part of CSE. Pt was A&Ox4 and apologized to rehab team for his mood. He was adminstered a variety of bolus consistencies throughout the bedside swallow evaluation. All trials were given x2-3 to assess for consistency and/or fatigue. The following bolus consistencies were administered: thin liquids ( ice chip, open cup/straw sip, subsequent sips from open cup/ straw), pudding, pureed applesauce, mechanical soft ( nutrigrain bar), and regular ( naida cracker.) No overt s/ sxs of aspiration were observed throughout the CSE. Pt was observed to talk while eating and reports hiccups during and after meals. RAIL ENGINEER provided education on reflux and aspiration precautions, pt expressed understanding. During his admission at [facility], it is recommended pt continue current diet with implementation of discussed precautions/compensatory strategies. No further skilled speech therapy services are warranted at this time. RAIL ENGINEER will f/u as neededd. Stroke Dysphagia Assessment PHYSICIAN CERTIFICATION: I certify the specified therapy services for Zackary Carrasco are required, authorized, and reviewed every 30 days.
--- NOTE | 2025-02-04 11:22 | HMH.IPREAS ---
Rehab IP Re-assessment Rehab IP Re-assessment Start: 02/04/25 10:15 Freq: Status: Active Protocol: Document 02/04/25 09:45 [facility] (Rec: 02/04/25 11:21 [facility] [id number]) E-signed By David Blue PT Subjective Subjective Subjective Zackary Carrasco is a 74-year-old male with a medical history significant for A-fib, HFrEF, CAD/CABG, NSTEMI, CKD stage IV , hypertension, type 2 diabetes, BPH, GERD who presents with progressive shortness of breath, leg swelling. Pt currently requires ICU level care and has medically and physically declined since PT evaluation. Pt currently lives at home with his son who is gone much of the day. At baseline, he uses a rollator walker to ambulate and has 4-5 steps to enter his house. Today, pt presents resting supine in bed and states he is willing to participate with PT/OT this am . Pt transferred to bedside chair with call light in reach . He states that he is starting to have some heel pain/redness, so pillows were placed to offload heel pressure. Rehab IP PT Reassessment Eval Objective Appearance Patient Behavior Appropriate,Cooperative Patient Orientation Person,Place,Time Difficulty following instructions none Speech Pattern Clear,Appropriate Ambulation Patient Able to Ambulate No Balance Ability to Arise Able, uses arms to help Sitting Balance Steady, safe Standing Balance Steady, wide stance Dynamic Sitting Balance Ability Normal Dynamic Standing Balance Ability Good Transfers Bed Transfer Ability Minimal x 1 (25% assist) Sit to Stand Bed Transfer Ability Minimal x 2 (25% assist) Sit to Stand Chair Transfer Ability Minimal x 2 (25% assist) Rehab IP PT Reassessment of problems, goals, plan Problems Date of Evaluation: 02/04/25 PT IP Problems Bed Mobility,Transfers,Gait, Balance,Safety Rehab Potential Rehab Potential Good Equipment Needs Assistive Devices Rolling / Wheeled Walker Plan PT Intervention Plan Bed Mobility,Transfers,Gait, Balance,Safety,Therapeutic Exercise PT Plan Frequency Daily Duration LOS Discharge Goals Bed Transfer Ability Independent Sit to Stand Chair Transfer Ability Contact Guard/Hand Hold Ambulation Assistive Device Rolling Walker Ambulation Distance (feet) 10 Discharge Plan PT Discharge Plan Patient is currently most appropriate for placement in a rehab facility once medically stable for d/c. Pt has shown physical decline and now requires assistance for bed mobility, transfers, and ambulation. Pt demonstrated the ability to sit at EOB ~10 minutes and perform a sit/ stand/step transfer to bedside chair with min assist. Skilled acute therapy is currently indicated to improve LE and trunk strength and endurance to improve transfer and ambulation ability to return to PLOF with all ADLs and walking distances. G -code Required No IP Reassessment Inpatient Rehab Reassessment Performed Yes PHYSICIAN CERTIFICATION: I certify the specified therapy services for Zackary Carrasco are required, authorized, and reviewed every 30 days.
[2025-02-04 11:24] LABS: POC Glucose,Bedside 295 (70-110)
[2025-02-04] MEDS: NITROPRUSSIDE SODIUM 50 MG in DEXTROSE 5 % IN WATER 250 ML 7.48 MG IV (11:35)
[2025-02-04] MEDS: DOBUTAMINE HCL/D5W 250 ML 12.66 MG IV (13:57)
--- NOTE | 2025-02-04 15:31 | PC.NURSE ---
Recieved call from pharmacy ( Minda Campbell) to decrease heparin gtt to 1000 units/hr. RB+V.
[2025-02-04 16:25] LABS: POC Glucose,Bedside 270 (70-110)
[2025-02-04 16:43] LABS: Chloride 91 mmol/L (98-107); Potassium 4.5 mmoL/L (3.5-5.1); Sodium 128 mmol/L (136-145)
[2025-02-04 16:45] LABS: Creatinine Clearance Estimated 18 mL/min (50-200); Estimated Glomerular Filt Rate 14 ml/min (>60); GFR (African American) 16 ML/MIN (>60)
[2025-02-04 16:46] LABS: Alkaline Phosphatase 247 U/L (38-126); Anion Gap 12.5 mEq/L (5-15); Aspartate Amino Transferase 650 U/L (17-59); Bilirubin,Total 1.1 mg/dl (0.2-1.3); Calcium 8.1 mg/dl (8.4-10.2); Carbon Dioxide 29 mmol/L (22.0-30.0); Glucose 267 mg/dl (74-100); Total Protein,Serum 6.7 g/dl (6.3-8.2)
[2025-02-04 16:54] LABS: Alanine Aminotransferase 1321 U/L (12-78)
[2025-02-04 16:58] LABS: Blood Urea Nitrogen 84 mg/dl (9-20)
[2025-02-04 19:41] LABS: Albumin Level 3.5 g/dl (3.5-5.0); Albumin/Globulin Ratio 1.1 (1.1-1.8); Globulin 3.2 g/dL (1.3-3.2)
[2025-02-04] MEDS: INSULIN GLARGINE 100 UNITS/ML 10ML VIAL 10 UNIT SUBCUT (21:03)
[2025-02-04] MEDS: PANTOPRAZOLE 40MG TABLET 40 MG PO (21:04)
[2025-02-05] VITALS (26 sets, daily range): BP systolic 104–134; BP diastolic 46–65; PULSE 97–113; RESP 12–26; TEMP 36.4–36.7; O2SAT 94–100; BMI 27.2
[2025-02-05] MEDS: BUMETANIDE 10 MG in 0.9 % SODIUM CHLORIDE 60 ML IV ×3 (03:03→23:06)
[2025-02-05 06:34] LABS: POC Glucose,Bedside 256 (70-110)
[2025-02-05] MEDS: humaLOG 100 UNITS/ML 10ML VIAL (SSI) SUBCUT ×4 (06:39→21:13)
[2025-02-05] MEDS: LEVOTHYROXINE 88MCG (0.088MG) TAB 88 MCG PO (06:40)
[2025-02-05] MEDS: MILRINONE LACTATE 20 MG in 0.9 % SODIUM CHLORIDE 80 ML 6.06 MG IV ×2 (06:40→23:06)
[2025-02-05 07:56] LABS: Basophils % 0.1 % (0.1-2.0); Eosinophils # 0.1 Kmm3 (0.0-0.4); Eosinophils % 0.6 % (0.1-12.0); Hematocrit 33.8 % (42.0-52.0); Hemoglobin 11.4 g/dL (14.1-18.0); Lymphocytes % 11.8 % (10-50); Mean Corpuscular HGB Conc 33.7 g/dL (31.8-35.4); Mean Corpuscular Hemoglobin 27.8 pg (27.0-31.2); Mean Corpuscular Volume 82.4 fl (80-94); Mean Platelet Volume 10.2 fl (7.4-10.4); Monocytes # 1.3 K/mm3 (0.1-1.0); Monocytes % 15.5 % (1.7-9.3); Neutrophils # 5.9 K/mm3 (1.8-7.8); Neutrophils % 71.5 % (37.0-80.0); Nucleated Red Blood Cells # 0 10^3/uL; Nucleated Red Blood Cells % 0 %; Platelet Count 262 K/mm3 (142-424); Red Cell Distribution Width 15.3 % (11.5-17.5); Red Cell Distribution Width-SD 45.8 fL; White Blood Count 8.2 K/mm3 (4.8-10.8)
[2025-02-05] MEDS: AMIODARONE 200MG TABLET 400 MG PO ×3 (08:18→20:34)
[2025-02-05] MEDS: ASPIRIN EC 81MG TABLET 81 MG PO (08:18)
[2025-02-05] MEDS: CLOPIDOGREL 75MG TAB 75 MG PO (08:19)
[2025-02-05 08:31] LABS: Activated Partial Thrombo Time 46.7 seconds (22.8-30.6); INR 1.18 (0.9-1.1)
[2025-02-05 08:32] LABS: Magnesium 1.5 mg/dl (1.6-2.3); Phosphorous 4.7 mg/dl (2.5-4.5)
[2025-02-05 08:35] LABS: Albumin Level 3.4 g/dl (3.5-5.0); Albumin/Globulin Ratio 0.9 (1.1-1.8); Alkaline Phosphatase 215 U/L (38-126); Aspartate Amino Transferase 454 U/L (17-59); Bilirubin,Total 1.2 mg/dl (0.2-1.3); Blood Urea Nitrogen 77 mg/dl (9-20); Calcium 8.6 mg/dl (8.4-10.2); Carbon Dioxide 31 mmol/L (22.0-30.0); Chloride 90 mmol/L (98-107); Creatinine Clearance Estimated 19 mL/min (50-200); Estimated Glomerular Filt Rate 14 ml/min (>60); GFR (African American) 17 ML/MIN (>60); Globulin 3.9 g/dL (1.3-3.2); Glucose 243 mg/dl (74-100); Sodium 128 mmol/L (136-145); Total Protein,Serum 7.3 g/dl (6.3-8.2)
[2025-02-05 08:45] LABS: Alanine Aminotransferase 1178 U/L (12-78)
[2025-02-05] MEDS: DOBUTAMINE HCL/D5W 250 ML 12.66 MG IV (09:08)
[2025-02-05] MEDS: MAGNESIUM SULFATE IN WATER 2 GM/50 ML PIGGYBACK IV ×2 (09:08→09:50)
--- NOTE | 2025-02-05 09:49 | PC.NURSE ---
spoke with Dimitry in pharmacy regarding Heparin drip. Drip titrated to 22 ml/hr.
[2025-02-05] MEDS: HEPARIN SODIUM,PORCINE/D5W 500 ML 22 UNIT IV (09:51)
[2025-02-05] MEDS: ONDANSETRON 4MG/2ML VIAL 4 MG IV (10:17)
--- NOTE | 2025-02-05 10:41 | EXP.ACUTE.PN ---
Subjective *Date: 02/05/25 *Time: 12:35 Interval history: Stable on room air this morning. Maps in the 70s. Having good urine output, -3 L in the past 24 hours. Tolerating drips well. Tolerating p.o. intake. Medical Exam Vital signs and Labs for Last 24 Hours: Vital Signs Temp Pulse Pulse Resp BP Pulse Ox O2 Del Method 02/05/25 09:57 107 H 18 130/54 L 100 Room Air 02/05/25 08:59 111 H 18 129/59 L 98 Room Air 02/05/25 08:59 Room Air 02/05/25 08:00 97.7 F 02/05/25 07:26 112 H 18 131/65 98 Room Air 02/05/25 07:26 97 Room Air 02/05/25 07:00 108 H 18 117/57 L 99 Room Air 02/05/25 07:00 Room Air 02/05/25 06:00 105 H 19 107/46 L 97 Room Air 02/05/25 05:00 108 H 20 110/53 L 96 Room Air 02/05/25 05:00 113 H 23 110/53 L 95 Room Air 02/05/25 04:00 107 H 02/05/25 04:00 97.6 F 02/05/25 04:00 109 H 21 127/63 97 Room Air 02/05/25 04:00 Room Air 02/05/25 03:00 Room Air 02/05/25 03:00 111 H 26 H 123/64 97 Room Air 02/05/25 02:00 104 H 20 117/50 L 99 Room Air 02/05/25 01:00 104 H 14 134/57 L 98 Room Air 02/05/25 01:00 105 H 16 134/57 L 98 Room Air 02/05/25 00:00 104 H 02/05/25 00:00 97.9 F 99 H 16 124/55 L 96 Room Air 02/05/25 00:00 96 Room Air 02/04/25 23:00 110 H 21 116/53 L 99 Room Air 02/04/25 22:00 99 H 16 123/53 L 99 02/04/25 21:00 80 22 134/53 L 100 Room Air 02/04/25 20:00 Room Air 02/04/25 20:00 100 H 02/04/25 20:00 97.6 F 101 H 17 136/57 L 98 Room Air 02/04/25 19:00 104 H 20 152/57 H 99 Room Air 02/04/25 19:00 Room Air 02/04/25 18:00 103 H 18 117/50 L 100 Room Air 02/04/25 17:00 Room Air 02/04/25 17:00 111 H 19 144/61 H 98 Room Air 02/04/25 16:00 90 02/04/25 16:00 98.1 F 02/04/25 16:00 99 H 97 Room Air 02/04/25 16:00 111 H 20 141/55 H 98 Room Air 02/04/25 15:00 Room Air 02/04/25 15:00 105 H 21 112/49 L 99 Room Air 02/04/25 14:00 107 H 20 118/56 L 95 Room Air 02/04/25 13:00 106 H 18 108/53 L 97 Room Air 02/04/25 13:00 Room Air 02/04/25 12:00 100 H 02/04/25 12:00 98.0 F 02/04/25 12:00 110 H 16 118/47 L 97 Room Air 02/04/25 11:52 105 H 15 97 Room Air 02/04/25 11:00 103 H 15 122/50 L 97 Room Air 02/04/25 11:00 Room Air Intake and Output 02/04/25 02/05/25 02/05/25 23:59 07:59 15:59 Intake Total 418.067 / 1871.238 281.709 / 1021.429 739.720 / 1021.429 Output Total 1650 / 4665 1240 / 2440 1200 / 2440 Balance -1231.933 / -2793.762 -958.291 / -1418.571 -460.280 / -1418.571 Intake: Intake, Oral Amount 240 / 1110 100 / 340 240 / 340 Intake, Total IV Amount 178.067 / 761.238 181.709 / 681.429 499.720 / 681.429 Output: Output, Urine Amount 975 / 2050 825 / 1575 750 / 1575 Output, Urine Amount (Catheter) 675 / 2615 415 / 865 450 / 865 Galvan 675 / 2615 415 / 865 450 / 865 Other: Number of Unmeasured Voids 0 0 0 Weight 83.5 kg Patient Weight 02/05/25 23:59 Weight 83.5 kg Laboratory Results - last 24 hr 02/04/25 11:10: POC Glucose 295 H 02/04/25 14:31: APTT 91.0 H* 02/04/25 16:11: POC Glucose 270 H 02/04/25 16:27: Sodium 128 L, Potassium 4.5, Chloride 91 L, Carbon Dioxide 29, Anion Gap 12.5, BUN 84 H, Creatinine 4.30 H, Estimated Creat Clear 18, Estimated GFR 14 L*, Est GFR ( Amer) 16 L*, Glucose 267 H D, Calcium 8.1 L, Total Bilirubin 1.1, AST 650 H* D, ALT 1321 H*, Alkaline Phosphatase 247 H, Total Protein 6.7, Albumin 3.5, Globulin 3.2, Albumin/Globulin Ratio 1.1 02/04/25 21:30: APTT 59.0 02/05/25 06:25: POC Glucose 256 H 02/05/25 06:30: WBC 8.2, RBC 4.10 L, Hgb 11.4 L, Hct 33.8 L, MCV 82.4, MCH 27.8, MCHC 33.7, RDW 15.3, Plt Count 262, MPV 10.2, Neut % (Auto) 71.5, Lymph % (Auto) 11.8, Br[place]ley % (Auto) 15.5 H, Eos % (Auto) 0.6, Baso % (Auto) 0.1, Neut # (Auto) 5.9, Lymph # (Auto) 1.0, [place] # (Auto) 1.3 H, Eos # (Auto) 0.1, Baso # (Auto) 0.0, PT 13.0 H, INR 1.18 H, APTT 46.7 H, Sodium 128 L, Potassium 4.0, Chloride 90 L, Carbon Dioxide 31 H, Anion Gap 11.0, BUN 77 H, Creatinine 4.20 H, Estimated Creat Clear 19, Estimated GFR 14 L*, Est GFR ( Amer) 17 L*, Glucose 243 H, Calcium 8.6, Phosphorus 4.7 H, Magnesium 1.5 L, Total Bilirubin 1.2, AST 454 H* D, ALT 1178 H*, Alkaline Phosphatase 215 H, Total Protein 7.3, Albumin 3.4 L, Globulin 3.9 H, Albumin/Globulin Ratio 0.9 L I & O for Labs for Last 24 Hours: Intake & Output 02/02/25 02/03/25 02/04/25 02/05/25 23:59 23:59 23:59 23:59 Intake Total 2992.060 / 2992.060 1554.402 / 1027.131 7696.238 / 0308.366 3803.429 / 1021.429 Output Total 2348 / 2348 7790 / 7940 4445 / 4665 2440 / 2440 Balance 644.060 / 644.060 -6235.598 / -6185.598 -2673.762 / -2793.762 -1418.571 / -1418.571 Weight 81.74 kg 84.4 kg 82.4 kg 83.5 kg Constitutional: Present mild distress, average body habitus, chronically ill appearing and cooperative Head: Present atraumatic and normocephalic ENT: Present normal exam Respiratory: Present normal respiratory effort; Absent rhonchi, wheezes or crackles Cardiac: Present Reg Rate and Rhythm GI: Present soft, distention, tenderness (Mild right upper quadrant) and normal bowel sounds Extremities: Present normal inspection and full ROM; Absent edema Skin: Present intact and pallor; Absent erythema or mottling Comment:: Pulses weak in extremities Neuro: Present Grossly Intact, alert, awake, oriented x 3 and moves all extremities Assessment and Plan *Assessment and plan (1) Cardiogenic shock: Status: Acute Category: Medical Code(s): R57.0 - Cardiogenic shock (2) Acute on chronic HFrEF (heart failure with reduced ejection fraction): Status: Acute Category: Medical Code(s): I50.23 - Acute on chronic systolic (congestive) heart failure (3) Atrial fibrillation with RVR: Status: Acute Category: Medical Code(s): I48.91 - Unspecified atrial fibrillation (4) Ischemic cardiomyopathy: Status: Acute Category: Medical Code(s): I25.5 - Ischemic cardiomyopathy (5) Hypothyroidism (acquired): Status: Acute Category: Medical Code(s): E03.9 - Hypothyroidism, unspecified (6) DM type 2 (diabetes mellitus, type 2): Status: Acute Qualifiers: Diabetes mellitus complication status: with other specified complication Diabetes mellitus half-way insulin use: without moth exterminator use Qualified Code(s): E11.69 - Type 2 diabetes mellitus with other specified complication Category: Medical Code(s): E11.9 - Type 2 diabetes mellitus without complications (7) Pulmonary HTN: Status: Acute Category: Medical Code(s): I27.20 - Pulmonary hypertension, unspecified (8) CKD stage 4 due to type 2 diabetes mellitus: Status: Acute Category: Medical Code(s): E11.22 - Type 2 diabetes mellitus with diabetic chronic kidney disease; N18.4 - Chronic kidney disease, stage 4 (severe) (9) Coronary artery disease: Status: Acute Qualifiers: Associated angina: with other forms of angina Coronary Disease-Associated Artery/Lesion type: bypass graft Three [employer] vs. transplanted heart: [place] heart Qualified Code(s): I25.708 - Atherosclerosis of coronary artery bypass graft(s), unspecified, with other forms of angina pectoris Category: Medical Code(s): I25.10 - Atherosclerotic heart disease of [place] coronary artery without angina pectoris (10) Presence of stent in coronary artery: Status: Acute Category: Surgical Code(s): Z95.5 - Presence of coronary angioplasty implant and graft (11) Hx of CABG: Status: Acute Category: Surgical Code(s): Z95.1 - Presence of aortocoronary bypass graft (12) Shock liver: Status: Acute Category: Medical Code(s): K72.00 - Acute and subacute hepatic failure without coma Plan Zackary Carrasco is a 74-year-old male with a medical history significant for A-fib, HFrEF, CAD/CABG, NSTEMI, CKD stage IV, hypertension, type 2 diabetes, BPH, GERD who presents with progressive shortness of breath, leg swelling. Patient was recently admitted to our facility last month for similar symptoms. He states he has been adherent to his medications. In the ED, patient's heart rate 120s/130s with A-fib. Cardioversion performed morning of 02/01. Tolerated well. Shock appears to be stable with adequate management. Continuing aggressive diuresis. Having good response. Continues to require ICU level care, cardiology assisting with care. Patient's condition is critical, prognosis guarded. Kidney and liver function remains abnormal but stable. Problems addressed as follows: # Cardiogenic shock #Acute on chronic HFrEF # A-flutter RVR, status post cardioversion, now in sinus rhythm ? Presented with progressive shortness of breath, volume overload. BNP 15,400. Patient states he has been adherent to his medications, though he lives alone and family questions this. ? Patient initially treated with amiodarone drip for A-fib RVR, was discontinued. Attempts to resume beta-cholo showed clinical signs of cardiogenic shock. Patient was cardioverted on 02/01 with good results. Developed decompensation state over the next 12 hours. - Continue p.o. amiodarone 400 mg 3 times a day - Continue milrinone drip at 250 mcg, continue dobutamine 5 mcg, continue nitroprusside at 0.3. Continue Bumex 1 mg IV drip every hour - -16 and half liters since admission, -3 L in the past 24 hours. - Continue heparin drip - Discontinue Galvan - Repeat echocardiogram obtained 02/02 showing EF of 10 to 15%. Ejection fraction 30% 1 month ago -Given worsening LIANE/ATN, will hold hydralazine, Jardiance, spironolactone Transaminitis in the setting of cardiogenic shock and amiodarone therapy - Liver enzymes showing improvement today, bilirubin 1.2, AST 454, ALT 1178. Mild abdominal pain on exam. INR normal at 1.1. - Repeat CMP ordered every 12 hours to trend liver enzymes - Hold statin in setting of elevated liver enzymes #LIANE on CKD stage IV #Hyperkalemia - Bilateral renals were normal on cath 12/2024 - Baseline creatinine 2.2-2.4. Creatinine showing slight improvement at 4.2, BUN 77. Magnesium 1.5 potassium 4.0. Replacing per protocol. - Caution with nephrotoxins, renally dose medication - Repeat CBC, CMP, magnesium ordered for the morning, repeat CMP ordered for 6PM to monitor kidney function, electrolytes, liver function #CAD s/p CABG 2017, LUKE 2021: Continue aspirin 81 mg, clopidogrel 75 mg; holding atorvastatin 80 mg. #Hypothyroidism: TSH subtherapeutic 11.8. Continue home levothyroxine 88 mcg. #Type 2 diabetes: Continue insulin glargine decreased to 10 units tonight. Holding Jardiance. Continue low-dose sliding scale insulin with fingersticks ACHS. #BPH: Continue home finasteride 5 mg. #GERD: Continue home PPI. DNR/DNI Heparin drip Diabetic diet ICU/Critical care attestation This patient is critically ill with 35 minutes devoted solely to this patient managing life/organ supporting interventions that required physician assessment. This includes time spent making adjustments in ventilator settings, IV fluid administration, titration of pressors, adjustments of medications, discussion of patient with consultants and other care providers as well as updating patient and/or family (if patient by virtue of his/her condition is unable to participate in decision making). This does not include time spent performing separately billed procedures. Time is not concurrent with that of other providers.
[2025-02-05 11:17] LABS: POC Glucose,Bedside 262 (70-110)
[2025-02-05] MEDS: NITROPRUSSIDE SODIUM 50 MG in DEXTROSE 5 % IN WATER 250 ML 7.48 MG IV (14:18)
[2025-02-05 16:29] LABS: PTT Heparin (inpatient only) 56.2 Seconds (50-75)
[2025-02-05 16:54] LABS: POC Glucose,Bedside 261 (70-110)
--- NOTE | 2025-02-05 17:17 | PC.NURSE ---
pt alert and oriented t/o shift. lung sounds diminished t/o. pt on room air. pt NSR-Sinus Tach on the monitor. abdomen soft, nontender, bowel sounds active. pt has RIJ triple lumen in place, drips infusing, see mar. f/c removed this shift and pt voiding per urinal and bsc. pt has slept intermittently since lunch. family did visit today and bring in pt's own rolling walker. pt is up with rolling walker and assistance x2, weakness noted to legs. bed alarm in place and call light.
--- NOTE | 2025-02-05 17:41 | PC.NURSE ---
pt sitting on side of bed eating supper.
[2025-02-05 18:08] LABS: Chloride 88 mmol/L (98-107); Potassium 3.9 mmoL/L (3.5-5.1); Sodium 129 mmol/L (136-145)
[2025-02-05 18:10] LABS: Blood Urea Nitrogen 70 mg/dl (9-20); Creatinine Clearance Estimated 19 mL/min (50-200); Estimated Glomerular Filt Rate 14 ml/min (>60); GFR (African American) 17 ML/MIN (>60)
[2025-02-05 18:11] LABS: Albumin/Globulin Ratio 1.2 (1.1-1.8); Alkaline Phosphatase 211 U/L (38-126); Anion Gap 14.9 mEq/L (5-15); Aspartate Amino Transferase 373 U/L (17-59); Bilirubin,Total 1.2 mg/dl (0.2-1.3); Calcium 8.9 mg/dl (8.4-10.2); Carbon Dioxide 30 mmol/L (22.0-30.0); Globulin 3.4 g/dL (1.3-3.2); Glucose 209 mg/dl (74-100); Total Protein,Serum 7.4 g/dl (6.3-8.2)
[2025-02-05 18:19] LABS: Alanine Aminotransferase 1122 U/L (12-78)
[2025-02-05] MEDS: PANTOPRAZOLE 40MG TABLET 40 MG PO (20:34)
[2025-02-05] MEDS: OXYCODONE 5MG IMMEDIATE RELEASE TABLET 10 MG PO (20:34)
[2025-02-05] MEDS: OLANZapine 5 MG ODT TABLET SL (20:35)
[2025-02-05] MEDS: INSULIN GLARGINE 100 UNITS/ML 10ML VIAL 10 UNIT SUBCUT (21:13)
[2025-02-06] VITALS (23 sets, daily range): BP systolic 99–150; BP diastolic 47–83; PULSE 96–112; RESP 13–24; TEMP 36.6–36.9; O2SAT 94–100; BMI 26.2
[2025-02-06] MEDS: HEPARIN SODIUM,PORCINE/D5W 500 ML 17 UNIT IV (02:01)
[2025-02-06] MEDS: DOBUTAMINE HCL/D5W 250 ML 12.66 MG IV (06:06)
[2025-02-06] MEDS: humaLOG 100 UNITS/ML 10ML VIAL (SSI) SUBCUT ×4 (06:08→21:12)
[2025-02-06] MEDS: LEVOTHYROXINE 88MCG (0.088MG) TAB 88 MCG PO (06:09)
[2025-02-06 08:01] LABS: Basophils % 0.4 % (0.1-2.0); Eosinophils # 0.2 Kmm3 (0.0-0.4); Eosinophils % 2.7 % (0.1-12.0); Hematocrit 32.5 % (42.0-52.0); Hemoglobin 10.7 g/dL (14.1-18.0); Lymphocytes # 1.2 K/mm3 (0.7-4.5); Mean Corpuscular HGB Conc 32.9 g/dL (31.8-35.4); Mean Corpuscular Hemoglobin 27.3 pg (27.0-31.2); Mean Corpuscular Volume 82.9 fl (80-94); Mean Platelet Volume 9.9 fl (7.4-10.4); Monocytes % 12.4 % (1.7-9.3); Neutrophils # 5.5 K/mm3 (1.8-7.8); Neutrophils % 69.1 % (37.0-80.0); Nucleated Red Blood Cells # 0 10^3/uL; Nucleated Red Blood Cells % 0 %; Platelet Count 252 K/mm3 (142-424); Red Blood Count 3.92 M/mm3 (4.60-6.20); Red Cell Distribution Width 15.4 % (11.5-17.5); Red Cell Distribution Width-SD 46.1 fL; White Blood Count 7.9 K/mm3 (4.8-10.8)
[2025-02-06 08:06] LABS: Albumin Level 3.6 g/dl (3.5-5.0); Chloride 86 mmol/L (98-107); Potassium 3.7 mmoL/L (3.5-5.1); Sodium 126 mmol/L (136-145)
[2025-02-06 08:08] LABS: Blood Urea Nitrogen 69 mg/dl (9-20); Creatinine Clearance Estimated 20 mL/min (50-200); Estimated Glomerular Filt Rate 16 ml/min (>60); GFR (African American) 20 ML/MIN (>60)
[2025-02-06 08:09] LABS: Albumin/Globulin Ratio 1.1 (1.1-1.8); Alkaline Phosphatase 188 U/L (38-126); Anion Gap 10.7 mEq/L (5-15); Aspartate Amino Transferase 237 U/L (17-59); Bilirubin,Total 1.2 mg/dl (0.2-1.3); Calcium 8.6 mg/dl (8.4-10.2); Carbon Dioxide 33 mmol/L (22.0-30.0); Globulin 3.3 g/dL (1.3-3.2); Glucose 168 mg/dl (74-100); Total Protein,Serum 6.9 g/dl (6.3-8.2)
[2025-02-06 08:16] LABS: Alanine Aminotransferase 846 U/L (12-78)
[2025-02-06] MEDS: ASPIRIN EC 81MG TABLET 81 MG PO (08:17)
[2025-02-06] MEDS: CLOPIDOGREL 75MG TAB 75 MG PO (08:17)
[2025-02-06] MEDS: AMIODARONE 200MG TABLET 400 MG PO ×3 (08:17→21:12)
[2025-02-06] MEDS: BUMETANIDE 10 MG in 0.9 % SODIUM CHLORIDE 60 ML IV (08:44)
[2025-02-06] MEDS: HEPARIN SODIUM,PORCINE/D5W 500 ML 12 UNIT IV ×2 (10:07→15:26)
--- NOTE | 2025-02-06 10:35 | EXP.ACUTE.PN ---
Subjective *Date: 02/06/25 *Time: 18:40 Interval history: Stable on room air this morning. In better spirits this morning. Having good output. -2 L in the past 24 hours. Tolerating p.o. intake. Afebrile. Family at bedside this afternoon to discuss plan Medical Exam Vital signs and Labs for Last 24 Hours: Vital Signs Temp Pulse Pulse Resp BP Pulse Ox O2 Del Method 02/06/25 10:00 101 H 18 125/55 L 98 Room Air 02/06/25 09:00 106 H 18 116/53 L 97 Room Air 02/06/25 09:00 Room Air 02/06/25 08:00 100 H 02/06/25 08:00 107 H 18 99/59 L 96 Room Air 02/06/25 08:00 97 Room Air 02/06/25 07:00 111 H 18 111/61 99 Room Air 02/06/25 06:47 Room Air 02/06/25 06:00 104 H 14 117/62 96 Room Air 02/06/25 05:00 108 H 21 130/60 96 Room Air 02/06/25 04:00 97.9 F 108 H 15 135/63 98 Room Air 02/06/25 04:00 109 H 02/06/25 04:00 Room Air 02/06/25 03:00 110 H 24 120/49 L 99 Room Air 02/06/25 02:00 98 H 13 115/55 L 98 Room Air 02/06/25 01:00 102 H 14 111/60 98 Room Air 02/06/25 00:00 98 H 02/06/25 00:00 Room Air 02/06/25 00:00 97.8 F 99 H 14 110/47 L 97 Room Air 02/05/25 23:00 97 H 12 108/49 L 100 Room Air 02/05/25 23:00 99 H 14 108/49 L 100 Room Air 02/05/25 22:00 108 H 17 128/65 98 Room Air 02/05/25 21:00 98 H 16 130/63 94 L Room Air 02/05/25 20:00 105 H 02/05/25 20:00 Room Air 02/05/25 20:00 97.7 F 100 H 21 128/60 97 Room Air 02/05/25 18:45 105 H 18 126/61 99 Room Air 02/05/25 18:42 Room Air 02/05/25 18:00 108 H 18 132/62 99 Room Air 02/05/25 17:00 99 H 18 134/64 99 Room Air 02/05/25 16:55 Room Air 02/05/25 16:00 110 H 02/05/25 16:00 98.0 F 02/05/25 16:00 102 H 18 125/60 96 Room Air 02/05/25 16:00 98 Room Air 02/05/25 15:00 105 H 18 118/55 L 97 Room Air 02/05/25 14:43 Room Air 02/05/25 14:00 100 H 18 113/48 L 98 Room Air 02/05/25 13:00 97 H 18 104/50 L 99 Room Air 02/05/25 12:43 Room Air 02/05/25 12:00 110 H 02/05/25 12:00 97.7 F 02/05/25 11:41 105 H 18 131/60 99 Room Air 02/05/25 11:41 100 Room Air 02/05/25 10:56 100 H 18 130/53 L 98 Room Air 02/05/25 10:56 Room Air Intake and Output 02/05/25 02/06/25 02/06/25 23:59 07:59 15:59 Intake Total 891.889 / 2472.064 370.782 / 388.115 17.333 / 388.115 Output Total 1250 / 4790 1375 / 1675 300 / 1675 Balance -358.111 / -2317.936 -1004.218 / -1286.885 -282.667 / -1286.885 Intake: Intake, Oral Amount 570 / 1410 Intake, Total IV Amount 321.889 / 1062.064 370.782 / 388.115 17.333 / 388.115 Output: Output, Urine Amount 1250 / 3500 1375 / 1675 300 / 1675 Other: Number of Unmeasured Voids 0 Weight 80.3 kg Patient Weight 02/06/25 23:59 Weight 80.3 kg Laboratory Results - last 24 hr 02/05/25 11:09: POC Glucose 262 H 02/05/25 16:00: APTT 56.2 02/05/25 16:40: POC Glucose 261 H 02/05/25 17:55: Sodium 129 L, Potassium 3.9, Chloride 88 L, Carbon Dioxide 30, Anion Gap 14.9, BUN 70 H, Creatinine 4.10 H, Estimated Creat Clear 19, Estimated GFR 14 L*, Est GFR ( Amer) 17 L*, Glucose 209 H, Calcium 8.9, Total Bilirubin 1.2, AST 373 H*, ALT 1122 H*, Alkaline Phosphatase 211 H, Total Protein 7.4, Albumin 4.0 D, Globulin 3.4 H, Albumin/Globulin Ratio 1.2 02/06/25 00:53: APTT 200.0 H* 02/06/25 06:45: WBC 7.9, RBC 3.92 L, Hgb 10.7 L, Hct 32.5 L, MCV 82.9, MCH 27.3, MCHC 32.9, RDW 15.4, Plt Count 252, MPV 9.9, Neut % (Auto) 69.1, Lymph % (Auto) 15.0, [place] % (Auto) 12.4 H, Eos % (Auto) 2.7, Baso % (Auto) 0.4, Neut # (Auto) 5.5, Lymph # (Auto) 1.2, [place] # (Auto) 1.0, Eos # (Auto) 0.2, Baso # (Auto) 0.0, Sodium 126 L, Potassium 3.7, Chloride 86 L, Carbon Dioxide 33 H, Anion Gap 10.7, BUN 69 H, Creatinine 3.70 H, Estimated Creat Clear 20, Estimated GFR 16 L*, Est GFR ( Amer) 20 L, Glucose 168 H, Calcium 8.6, Magnesium 2.0 D, Total Bilirubin 1.2, AST 237 H D, ALT 846 H*, Alkaline Phosphatase 188 H, Total Protein 6.9, Albumin 3.6, Globulin 3.3 H, Albumin/Globulin Ratio 1.1 02/06/25 09:00: APTT 193.0 H* I & O for Labs for Last 24 Hours: Intake & Output 02/03/25 02/04/25 02/05/25 02/06/25 23:59 23:59 23:59 23:59 Intake Total 1554.402 / 4578.699 4528.238 / 7316.811 1143.064 / 2472.064 388.115 / 388.115 Output Total 7790 / 7940 4445 / 4665 4565 / 4790 1675 / 1675 Balance -6235.598 / -6185.598 -2673.762 / -2793.762 -2092.936 / -2317.936 -1286.885 / -1286.885 Weight 84.4 kg 82.4 kg 83.5 kg 80.3 kg Constitutional: Present no acute distress, average body habitus, chronically ill appearing and cooperative Head: Present atraumatic and normocephalic ENT: Present normal exam Comment:: right IJ Respiratory: Present normal respiratory effort; Absent rhonchi, wheezes or crackles Cardiac: Present Reg Rate and Rhythm GI: Present soft, distention and normal bowel sounds; Absent tenderness Extremities: Present normal inspection and full ROM; Absent edema Skin: Present intact; Absent erythema, pallor or mottling Comment:: Pulses weak in extremities Neuro: Present Grossly Intact, alert, awake, oriented x 3 and moves all extremities Assessment and Plan *Assessment and plan (1) Cardiogenic shock: Status: Acute Category: Medical Code(s): R57.0 - Cardiogenic shock (2) Acute on chronic HFrEF (heart failure with reduced ejection fraction): Status: Acute Category: Medical Code(s): I50.23 - Acute on chronic systolic (congestive) heart failure (3) Atrial fibrillation with RVR: Status: Acute Category: Medical Code(s): I48.91 - Unspecified atrial fibrillation (4) Ischemic cardiomyopathy: Status: Acute Category: Medical Code(s): I25.5 - Ischemic cardiomyopathy (5) Hypothyroidism (acquired): Status: Acute Category: Medical Code(s): E03.9 - Hypothyroidism, unspecified (6) DM type 2 (diabetes mellitus, type 2): Status: Acute Qualifiers: Diabetes mellitus complication status: with other specified complication Diabetes mellitus 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 insulin use: without 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 use Qualified Code(s): E11.69 - Type 2 diabetes mellitus with other specified complication Category: Medical Code(s): E11.9 - Type 2 diabetes mellitus without complications (7) Pulmonary HTN: Status: Acute Category: Medical Code(s): I27.20 - Pulmonary hypertension, unspecified (8) CKD stage 4 due to type 2 diabetes mellitus: Status: Acute Category: Medical Code(s): E11.22 - Type 2 diabetes mellitus with diabetic chronic kidney disease; N18.4 - Chronic kidney disease, stage 4 (severe) (9) Coronary artery disease: Status: Acute Qualifiers: Associated angina: with other forms of angina Coronary Disease-Associated Artery/Lesion type: bypass graft [place] vs. transplanted heart: [place] heart Qualified Code(s): I25.708 - Atherosclerosis of coronary artery bypass graft(s), unspecified, with other forms of angina pectoris Category: Medical Code(s): I25.10 - Atherosclerotic heart disease of [place] coronary artery without angina pectoris (10) Presence of stent in coronary artery: Status: Acute Category: Surgical Code(s): Z95.5 - Presence of coronary angioplasty implant and graft (11) Hx of CABG: Status: Acute Category: Surgical Code(s): Z95.1 - Presence of aortocoronary bypass graft (12) Shock liver: Status: Acute Category: Medical Code(s): K72.00 - Acute and subacute hepatic failure without coma Plan Zackary Carrasco is a 74-year-old male with a medical history significant for A-fib, HFrEF, CAD/CABG, NSTEMI, CKD stage IV, hypertension, type 2 diabetes, BPH, GERD who presents with progressive shortness of breath, leg swelling. Patient was recently admitted to our facility last month for similar symptoms. He states he has been adherent to his medications. In the ED, patient's heart rate 120s/130s with A-fib. Cardioversion performed morning of 02/01. Tolerated well. Shock appears to be stable with adequate management. Will start to wean diuresis today and his drips. Transition to twice daily Bumex and discontinue dobutamine. Continues to require ICU level care. Patient's condition is critical, prognosis guarded. Kidney and liver function remains abnormal but stable. Problems addressed as follows: # Cardiogenic shock #Acute on chronic HFrEF # A-flutter RVR, status post cardioversion, now in sinus rhythm ? Presented with progressive shortness of breath, volume overload. BNP 15,400. Patient states he has been adherent to his medications, though he lives alone and family questions this. ? Patient initially treated with amiodarone drip for A-fib RVR, was discontinued. Attempts to resume beta-cholo showed clinical signs of cardiogenic shock. Patient was cardioverted on 02/01 with good results. Developed decompensation state over the next 12 hours. - Continue p.o. amiodarone 400 mg 3 times a day - Continue milrinone drip at 250 mcg, continue nitroprusside at 0.3. - decrease Bumex from gtt to 2mg IV BIDL - DC dobutamine - -18.5 liters since admission, -2 L in the past 24 hours. - Continue heparin drip - Repeat echocardiogram obtained 02/02 showing EF of 10 to 15%. Ejection fraction 30% 1 month ago -Given LIANE/ATN, will hold hydralazine, Jardiance, spironolactone Transaminitis in the setting of cardiogenic shock and amiodarone therapy - Liver enzymes showing improvement today, bilirubin 1.2, AST 237, ALT 846. improved abdominal pain on exam. INR normal. - Repeat CMP ordered every 12 hours to trend liver enzymes - Hold statin in setting of elevated liver enzymes #LIANE on CKD stage IV #Hyperkalemia - Bilateral renals were normal on cath 12/2024 - Baseline creatinine 2.2-2.4. Creatinine continues to improve, 3.7 today, BUN 69. Potassium 3.7, magnesium 2.0. Replacing per protocol. - Caution with nephrotoxins, renally dose medication - Repeat CBC, CMP, magnesium ordered for the morning, repeat CMP ordered for 6PM to monitor kidney function, electrolytes, liver function #CAD s/p CABG 2017, LUKE 2021: Continue aspirin 81 mg, clopidogrel 75 mg; holding atorvastatin 80 mg. #Hypothyroidism: TSH subtherapeutic 11.8. Continue home levothyroxine 88 mcg. #Type 2 diabetes: Continue insulin glargine decreased to 10 units tonight. Holding Jardiance. Continue low-dose sliding scale insulin with fingersticks ACHS. #BPH: Continue home finasteride 5 mg. #GERD: Continue home PPI. DNR/DNI Heparin drip Diabetic diet ICU/Critical care attestation This patient is critically ill with 35 minutes devoted solely to this patient managing life/organ supporting interventions that required physician assessment. This includes time spent making adjustments in ventilator settings, IV fluid administration, titration of pressors, adjustments of medications, discussion of patient with consultants and other care providers as well as updating patient and/or family (if patient by virtue of his/her condition is unable to participate in decision making). This does not include time spent performing separately billed procedures. Time is not concurrent with that of other providers.
[2025-02-06] MEDS: OXYCODONE 5MG IMMEDIATE RELEASE TABLET 10 MG PO ×2 (10:55→19:46)
[2025-02-06 11:15] LABS: POC Glucose,Bedside 389 (70-110)
[2025-02-06] MEDS: ONDANSETRON 4MG/2ML VIAL 4 MG IV (12:41)
[2025-02-06] MEDS: MILRINONE LACTATE 20 MG in 0.9 % SODIUM CHLORIDE 80 ML 6.06 MG IV (14:20)
[2025-02-06 16:36] LABS: POC Glucose,Bedside 298 (70-110)
[2025-02-06] MEDS: NITROPRUSSIDE SODIUM 50 MG in DEXTROSE 5 % IN WATER 250 ML 7.48 MG IV (17:56)
[2025-02-06 18:55] LABS: Albumin Level 3.5 g/dl (3.5-5.0); Chloride 87 mmol/L (98-107); Sodium 123 mmol/L (136-145)
[2025-02-06 18:56] LABS: Potassium 4.3 mmoL/L (3.5-5.1)
[2025-02-06 18:58] LABS: Albumin/Globulin Ratio 1.1 (1.1-1.8); Anion Gap 9.3 mEq/L (5-15); Blood Urea Nitrogen 72 mg/dl (9-20); Carbon Dioxide 31 mmol/L (22.0-30.0); Creatinine Clearance Estimated 21 mL/min (50-200); Estimated Glomerular Filt Rate 17 ml/min (>60); GFR (African American) 21 ML/MIN (>60); Globulin 3.2 g/dL (1.3-3.2); Total Protein,Serum 6.7 g/dl (6.3-8.2)
[2025-02-06 18:59] LABS: Alanine Aminotransferase 702 U/L (12-78); Alkaline Phosphatase 186 U/L (38-126); Aspartate Amino Transferase 164 U/L (17-59); Calcium 8.3 mg/dl (8.4-10.2); Glucose 246 mg/dl (74-100); Magnesium 1.9 mg/dl (1.6-2.3)
[2025-02-06 21:10] LABS: POC Glucose,Bedside 261 (70-110)
[2025-02-06 21:10] LABS: POC Glucose,Bedside 278 (70-110)
[2025-02-06 21:10] LABS: POC Glucose,Bedside 210 (70-110)
[2025-02-06] MEDS: PANTOPRAZOLE 40MG TABLET 40 MG PO (21:12)
[2025-02-06] MEDS: INSULIN GLARGINE 100 UNITS/ML 10ML VIAL 10 UNIT SUBCUT (21:12)
[2025-02-07] VITALS (24 sets, daily range): BP systolic 90–151; BP diastolic 47–69; PULSE 15–102; RESP 14–22; TEMP 36.4–36.8; O2SAT 95–100; BMI 26.2
[2025-02-07 02:24] LABS: PTT Heparin (inpatient only) 40.3 Seconds (50-75)
--- NOTE | 2025-02-07 02:45 | PC.NURSE ---
Nightwatch calls with PTT result 40.3. States to give 3000u heparin bolus and titrate drip to 750u/hr. Read back, verified and carried out.
[2025-02-07] MEDS: HEPARIN SODIUM 5,000 UNIT/ML VIAL 3000 UNIT IV ×2 (03:02→10:08)
[2025-02-07 06:15] LABS: POC Glucose,Bedside 241 (70-110)
[2025-02-07] MEDS: humaLOG 100 UNITS/ML 10ML VIAL (SSI) SUBCUT ×4 (06:20→21:04)
[2025-02-07 06:24] LABS: Albumin Level 3.6 g/dl (3.5-5.0); Chloride 88 mmol/L (98-107)
[2025-02-07 06:25] LABS: Potassium 3.9 mmoL/L (3.5-5.1); Sodium 125 mmol/L (136-145)
[2025-02-07 06:27] LABS: Alanine Aminotransferase 600 U/L (12-78); Albumin/Globulin Ratio 1.1 (1.1-1.8); Anion Gap 9.9 mEq/L (5-15); Aspartate Amino Transferase 116 U/L (17-59); Blood Urea Nitrogen 70 mg/dl (9-20); Carbon Dioxide 31 mmol/L (22.0-30.0); Creatinine Clearance Estimated 22 mL/min (50-200); Estimated Glomerular Filt Rate 18 ml/min (>60); GFR (African American) 22 ML/MIN (>60); Globulin 3.3 g/dL (1.3-3.2); Total Protein,Serum 6.9 g/dl (6.3-8.2)
[2025-02-07 06:28] LABS: Alkaline Phosphatase 190 U/L (38-126); Bilirubin,Total 1.1 mg/dl (0.2-1.3); Calcium 8.4 mg/dl (8.4-10.2); Glucose 201 mg/dl (74-100); Magnesium 1.8 mg/dl (1.6-2.3)
[2025-02-07] MEDS: MILRINONE LACTATE 20 MG in 0.9 % SODIUM CHLORIDE 80 ML 6.06 MG IV ×2 (06:29→23:11)
--- NOTE | 2025-02-07 07:00 | PC.NURSE ---
Pt a/o x4. Pt complained of lower back pain 1x during shift requesting PRN pain medication. Pt has not voiced any other complaints to staff. Pt has tolerated RA well with sat >90%. Call light within reach.
[2025-02-07] MEDS: BUMETANIDE 1MG/4ML VIAL 2 MG IV ×2 (08:45→16:31)
[2025-02-07] MEDS: ASPIRIN EC 81MG TABLET 81 MG PO (08:47)
[2025-02-07] MEDS: AMIODARONE 200MG TABLET 400 MG PO ×3 (08:47→21:03)
[2025-02-07] MEDS: CLOPIDOGREL 75MG TAB 75 MG PO (08:48)
[2025-02-07] MEDS: LEVOTHYROXINE 88MCG (0.088MG) TAB 88 MCG PO (08:48)
[2025-02-07] MEDS: NICOTINE 21MG/24HR PATCH 21 MG TD (08:50)
[2025-02-07 09:48] LABS: PTT Heparin (inpatient only) 40.8 Seconds (50-75)
[2025-02-07] MEDS: HEPARIN SODIUM,PORCINE/D5W 500 ML 18 UNIT IV (10:11)
[2025-02-07 11:24] LABS: POC Glucose,Bedside 401 (70-110)
[2025-02-07] MEDS: ONDANSETRON 4MG/2ML VIAL 4 MG IV (11:34)
[2025-02-07] MEDS: MINERAL OIL ENEMA 133ML 133 ML RC (11:36)
[2025-02-07] MEDS: NITROPRUSSIDE SODIUM 50 MG in DEXTROSE 5 % IN WATER 250 ML 12.46 MG IV (11:36)
--- NOTE | 2025-02-07 14:27 | P.PN_ITS ---
Subjective Subjective Date: 02/07/25 Time: 09:30 Principal diagnosis: HFrEF, CKD Interval history: The patient states that he is feeling much better. He still states that he has a little shortness of breath when he is exerting himself but it is nowhere near as bad as it was. He denies any chest pain or pressure. He states his edema has resolved. He denies any fever, chills, nausea, vomiting, diarrhea. He states that he still has a little bit of orthopnea but this is 6 significantly improved as well. He remains on the milrinone and nitroprusside drips this morning. His Bumex drip was stopped yesterday and he is now on IV Bumex. The dobutamine drip has been stopped. Exam Data for Last 24 hours Vital signs and Labs for Last 24 Hours: Temp Pulse Resp BP Pulse Ox O2 Del Method O2 Flow Rate 98.0 F 96 H 17 118/60 100 Room Air 2 02/07/25 12:00 02/07/25 13:00 02/07/25 13:00 02/07/25 13:00 02/07/25 13:00 02/07/25 13:00 02/06/25 22:00 Laboratory Results - last 24 hr 02/05/25 21:07: POC Glucose 278 H 02/06/25 06:02: POC Glucose 210 H 02/06/25 16:17: POC Glucose 298 H 02/06/25 16:29: APTT 68.0 02/06/25 18:30: Sodium 123 L, Potassium 4.3, Chloride 87 L, Carbon Dioxide 31 H, Anion Gap 9.3, BUN 72 H, Creatinine 3.50 H, Estimated Creat Clear 21, Estimated GFR 17 L*, Est GFR ( Amer) 21 L, Glucose 246 H D, Calcium 8.3 L, Magnesium 1.9, Total Bilirubin 1.0, AST 164 H D, ALT 702 H*, Alkaline Phosphatase 186 H, Total Protein 6.7, Albumin 3.5, Globulin 3.2, Albumin/Globulin Ratio 1.1 02/06/25 21:03: POC Glucose 261 H 02/07/25 02:02: APTT 40.3 L 02/07/25 05:40: Sodium 125 L, Potassium 3.9, Chloride 88 L, Carbon Dioxide 31 H, Anion Gap 9.9, BUN 70 H, Creatinine 3.40 H, Estimated Creat Clear 22, Estimated GFR 18 L*, Est GFR ( Amer) 22 L, Glucose 201 H, Calcium 8.4, Magnesium 1.8, Total Bilirubin 1.1, AST 116 H D, ALT 600 H*, Alkaline Phosphatase 190 H, Total Protein 6.9, Albumin 3.6, Globulin 3.3 H, Albumin/Globulin Ratio 1.1 02/07/25 06:06: POC Glucose 241 H 02/07/25 09:04: APTT 40.8 L 02/07/25 10:58: POC Glucose 401 H* I & O for Last 24 hours: Intake & Output 02/04/25 02/05/25 02/06/25 02/07/25 23:59 23:59 23:59 23:59 Intake Total 1771.238 / 9658.959 3686.064 / 2472.064 973.466 / 973.466 942.692 / 942.692 Output Total 4445 / 4665 4565 / 4790 3300 / 3300 975 / 975 Balance -2673.762 / -2793.762 -2092.936 / -2317.936 -2326.534 / -2326.534 - 32.308 / -32.308 Weight 181 lb 10.574 oz 184 lb 1.376 oz 177 lb 0.499 oz 177 lb 0.499 oz Constitutional Constitutional: no acute distress and average body habitus *Routine HEENT Exam Head: Present normocephalic and atraumatic ENT: Present mucous membranes moist *Routine Neck Exam Neck: Present supple, full ROM and normal carotid upstroke; Absent JVD, carotid bruit or lymphadenopathy *Routine Respiratory Exam Respiratory: Present CTA bilaterally, normal respiratory effort, able to speak in complete sentences and symmetric chest movement *Routine Cardiovascular Exam Cardiovascular: Present RRR, Normal S1 and Normal S2; Absent murmur or gallop *Routine Abdominal Exam Abdominal: Present soft and normoactive bowel sounds; Absent tenderness, distended or organomegaly *Routine Extremities Exam Extremities: Present full ROM, pulses intact and normal capillary refill; Absent cyanosis, clubbing or edema *Routine Skin Exam Skin: Present intact and warm; Absent erythema *Routine Neurological Exam Neurological: Present alert, oriented X3 and CN II-XII intact; Absent sensory deficit or motor deficit Routine Psychiatric Exam Psychiatric: Present normal affect Progress Note: A&P Assessment and plan (1) Cardiogenic shock: Status: Acute (2) Acute on chronic HFrEF (heart failure with reduced ejection fraction): Status: Acute (3) Atrial fibrillation with RVR: Status: Acute (4) Ischemic cardiomyopathy: Status: Acute (5) Hypothyroidism (acquired): Status: Acute (6) DM type 2 (diabetes mellitus, type 2): Status: Acute (7) Pulmonary HTN: Status: Acute (8) CKD stage 4 due to type 2 diabetes mellitus: Status: Acute (9) Coronary artery disease: Status: Acute (10) Presence of stent in coronary artery: Status: Acute (11) Hx of CABG: Status: Acute (12) Shock liver: Status: Acute Assessment and Plan Assessment and Plan for All Diagnoses:: Plan: 1. The patient was admitted to the hospital with cardiogenic shock and acute on chronic HFrEF. His EF is 10 to 15%. He remains on a milrinone drip and a nitroprusside drip. His dobutamine was stopped over the weekend. He is doing well today. His Bumex drip was also stopped over the weekend and he was converted to Bumex 2 mg IV twice daily today. Will continue the IV Bumex milrinone and nitroprusside drips today. 2. Start Isordil 20 mg p.o. twice daily for his cardiogenic shock and HFrEF. Once he has had the 2 doses of this today then we can stop his nitroprusside drip tomorrow but we want him to have at least 2 doses of the Isordil today before considering stopping the nitroprusside tomorrow. 3. Will continue the milrinone through today and through tomorrow. 4. The patient is a -20 L since admission. His liver enzymes are also improving. 5. His creatinine is 3.4 which has improved. His baseline creatinine is 2.2- 2.4. Renal function is too high to add spironolactone or DEVI/ARB/Arni. 6. No beta-cholo at this time due to his cardiogenic shock. 7. Will consider Jardiance/Farxiga once he is euvolemic. 8. His blood pressure is acceptable at this time. 9. His LDL goal is less than 55. No statin at this time due to his elevated liver enzymes which are improving. 10. Paroxysmal atrial fibrillation is sinus rhythm. He is on amiodarone. 11. Coronary artery disease is present. This is likely stable. Continue Plavix and aspirin. 12. Continue heparin drip for long-term anticoagulation. He will need to be converted over to Xarelto 15 mg prior to discharge home. Continue heparin drip at this time. 13. Further recommendations will be made pending the patient's response to treatment. Thank you for the opportunity to help participate in the care of this patient. All recommendations and orders are per Dr. Lees.
[2025-02-07] MEDS: ISOSORBIDE DINITRATE 20 MG TABLET PO ×2 (15:04→21:50)
--- NOTE | 2025-02-07 15:25 | DIET.NUTRFU ---
Reviewed with IDT in rounds today, his meal intake has been fair and no BM for 3+ days. Started on senekot and given a mineral oil enema today. Will continue to monitor.
[2025-02-07 15:35] LABS: PTT Heparin (inpatient only) 55.5 Seconds (50-75)
[2025-02-07] MEDS: OXYCODONE 5MG IMMEDIATE RELEASE TABLET 10 MG PO (16:30)
--- NOTE | 2025-02-07 17:18 | PC.NURSE ---
Addendum entered by Kati Larson RN 02/07/25 17:45: states to DC heparin gtt and orders will be placed to transition pt to Xarelto tonight. Original Note: 1700 - Contacted lab about PTT results. States that they are unable to release result d/t QC @ this time. They are hoping to have results in 30 min. notified of this.
[2025-02-07 18:08] LABS: POC Glucose,Bedside 157 (70-110)
[2025-02-07 18:17] LABS: Albumin Level 3.5 g/dl (3.5-5.0); Chloride 88 mmol/L (98-107); Potassium 3.8 mmoL/L (3.5-5.1); Sodium 125 mmol/L (136-145)
[2025-02-07 18:19] LABS: Blood Urea Nitrogen 69 mg/dl (9-20)
[2025-02-07 18:20] LABS: Alanine Aminotransferase 498 U/L (12-78); Albumin/Globulin Ratio 1.1 (1.1-1.8); Alkaline Phosphatase 167 U/L (38-126); Anion Gap 7.8 mEq/L (5-15); Aspartate Amino Transferase 91 U/L (17-59); Bilirubin,Total 1.2 mg/dl (0.2-1.3); Calcium 8.5 mg/dl (8.4-10.2); Carbon Dioxide 33 mmol/L (22.0-30.0); Creatinine Clearance Estimated 21 mL/min (50-200); Estimated Glomerular Filt Rate 17 ml/min (>60); GFR (African American) 21 ML/MIN (>60); Globulin 3.3 g/dL (1.3-3.2); Glucose 139 mg/dl (74-100); Total Protein,Serum 6.8 g/dl (6.3-8.2)
[2025-02-07 18:21] LABS: Magnesium 1.8 mg/dl (1.6-2.3)
--- NOTE | 2025-02-07 19:03 | PC.NURSE ---
No acute events this shift. Remains on room air. Pt worked w/ PT/OT today and ambulated w/ use of his personal rolatorm walker, tolerated well. Up to chair for lunch. Received bed bath and linen change. Medicated for nausea and pain per DEC. No further needs voiced. Daughter has been at bedside @ intervals. Call billy w/in reach. POC ongoing.
--- NOTE | 2025-02-07 19:58 | P.PN_ITS ---
Subjective *Date: 02/07/25 *Time: 23:26 Interval history: Stable on room air this morning. In good spirits this morning. Having good output. -1.5 L in the past 24 hours. Tolerating p.o. intake. Afebrile. Family at bedside this afternoon to discuss plan Medical Exam Vital signs and Labs for Last 24 Hours: Vital Signs Temp Pulse Pulse Pulse Resp BP Pulse Ox 02/07/25 19:00 93 H 18 107/68 L 97 02/07/25 18:57 02/07/25 18:00 95 H 22 114/63 100 02/07/25 17:00 94 H 16 112/63 99 02/07/25 17:00 02/07/25 16:00 95 H 02/07/25 16:00 95 H 99 02/07/25 16:00 97.9 F 94 H 18 113/54 L 99 02/07/25 15:00 96 H 15 L 108/57 L 100 02/07/25 15:00 02/07/25 13:00 96 H 17 118/60 100 02/07/25 13:00 02/07/25 12:00 100 H 02/07/25 12:00 98.0 F 02/07/25 12:00 98 H 17 151/59 H 98 02/07/25 12:00 98 H 16 99 02/07/25 11:00 97 H 16 113/47 L 95 02/07/25 11:00 02/07/25 10:00 97 H 19 119/59 L 98 02/07/25 09:00 02/07/25 09:00 100 H 19 120/66 98 02/07/25 08:00 94 H 02/07/25 08:00 98.0 F 96 H 20 96/56 L 95 02/07/25 07:59 102 H 17 96/56 L 95 02/07/25 07:59 97 02/07/25 07:00 93 H 18 104/58 L 98 02/07/25 06:48 02/07/25 06:00 98 F 91 H 18 109/62 L 98 02/07/25 05:00 94 H 20 101/48 L 96 02/07/25 05:00 02/07/25 04:00 90 02/07/25 04:00 100 02/07/25 04:00 97.6 F 94 H 20 108/61 L 98 02/07/25 03:00 96 H 20 133/69 99 02/07/25 03:00 02/07/25 02:00 95 H 20 127/66 96 02/07/25 01:00 02/07/25 01:00 98.2 F 90 20 105/55 L 02/07/25 00:00 90 02/07/25 00:00 99 02/07/25 00:00 92 H 20 126/63 97 02/06/25 23:00 107 H 16 121/67 99 02/06/25 23:00 02/06/25 22:00 97 H 18 125/83 94 L 02/06/25 21:00 02/06/25 20:00 96 H 02/06/25 20:00 98.4 F 02/06/25 20:00 97 H 20 135/69 99 02/06/25 20:00 100 O2 Del Method O2 Flow Rate 02/07/25 19:00 Room Air 02/07/25 18:57 Room Air 02/07/25 18:00 Room Air 02/07/25 17:00 Room Air 02/07/25 17:00 Room Air 02/07/25 16:00 02/07/25 16:00 Room Air 02/07/25 16:00 Room Air 02/07/25 15:00 Room Air 02/07/25 15:00 Room Air 02/07/25 13:00 Room Air 02/07/25 13:00 Room Air 02/07/25 12:00 02/07/25 12:00 02/07/25 12:00 Room Air 02/07/25 12:00 Room Air 02/07/25 11:00 Room Air 02/07/25 11:00 Room Air 02/07/25 10:00 Room Air 02/07/25 09:00 Room Air 02/07/25 09:00 Room Air 02/07/25 08:00 02/07/25 08:00 Room Air 02/07/25 07:59 Room Air 02/07/25 07:59 Room Air 02/07/25 07:00 Room Air 02/07/25 06:48 Room Air 02/07/25 06:00 Room Air 02/07/25 05:00 Room Air 02/07/25 05:00 Room Air 02/07/25 04:00 02/07/25 04:00 Room Air 02/07/25 04:00 Room Air 02/07/25 03:00 Room Air 02/07/25 03:00 Room Air 02/07/25 02:00 Room Air 02/07/25 01:00 Room Air 02/07/25 01:00 Room Air 02/07/25 00:00 02/07/25 00:00 Room Air 02/07/25 00:00 Room Air 02/06/25 23:00 Room Air 02/06/25 23:00 Room Air 02/06/25 22:00 Nasal Cannula 2 02/06/25 21:00 Room Air 02/06/25 20:00 02/06/25 20:00 02/06/25 20:00 Room Air 02/06/25 20:00 Room Air Intake and Output 02/07/25 02/07/25 02/07/25 07:59 15:59 23:59 Intake Total 97.869 / 1106.094 888.225 / 1106.094 120 / 1106.094 Output Total 575 / 1425 400 / 1425 450 / 1425 Balance -477.131 / -318.906 488.225 / -318.906 -330 / -318.906 Intake: Intake, Oral Amount 660 / 780 120 / 780 Intake, Total IV Amount 97.869 / 326.094 228.225 / 326.094 Output: Output, Urine Amount 575 / 1425 400 / 1425 450 / 1425 Other: Number of Voids 1 Number of Unmeasured Voids 1 Number of Bowel Movements 1 Weight 80.3 kg Patient Weight 02/07/25 23:59 Weight 80.3 kg Laboratory Results - last 24 hr 02/05/25 21:07: POC Glucose 278 H 02/06/25 06:02: POC Glucose 210 H 02/06/25 21:03: POC Glucose 261 H 02/07/25 02:02: APTT 40.3 L 02/07/25 05:40: Sodium 125 L, Potassium 3.9, Chloride 88 L, Carbon Dioxide 31 H, Anion Gap 9.9, BUN 70 H, Creatinine 3.40 H, Estimated Creat Clear 22, Estimated GFR 18 L*, Est GFR ( Amer) 22 L, Glucose 201 H, Calcium 8.4, Magnesium 1.8, Total Bilirubin 1.1, AST 116 H D, ALT 600 H*, Alkaline Phosphatase 190 H, Total Protein 6.9, Albumin 3.6, Globulin 3.3 H, Albumin/Globulin Ratio 1.1 02/07/25 06:06: POC Glucose 241 H 02/07/25 09:04: APTT 40.8 L 02/07/25 10:58: POC Glucose 401 H* 02/07/25 15:15: APTT 55.5 02/07/25 16:42: POC Glucose 157 H 02/07/25 17:58: Sodium 125 L, Potassium 3.8, Chloride 88 L, Carbon Dioxide 33 H, Anion Gap 7.8, BUN 69 H, Creatinine 3.50 H, Estimated Creat Clear 21, Estimated GFR 17 L*, Est GFR ( Amer) 21 L, Glucose 139 H D, Calcium 8.5, Magnesium 1.8, Total Bilirubin 1.2, AST 91 H, ALT 498 H*, Alkaline Phosphatase 167 H, Total Protein 6.8, Albumin 3.5, Globulin 3.3 H, Albumin/Globulin Ratio 1.1 I & O for Labs for Last 24 Hours: Intake & Output 02/04/25 02/05/25 02/06/25 02/07/25 23:59 23:59 23:59 23:59 Intake Total 1771.238 / 1036.028 1579.064 / 2472.064 973.466 / 805.082 2179.094 / 1106.094 Output Total 4445 / 4665 4565 / 4790 3300 / 3300 1425 / 1425 Balance -2673.762 / -2793.762 -2092.936 / -2317.936 -2326.534 / -2326.534 - 318.906 / -318.906 Weight 82.4 kg 83.5 kg 80.3 kg 80.3 kg Constitutional: Present no acute distress, average body habitus, chronically ill appearing and cooperative Head: Present atraumatic and normocephalic ENT: Present normal exam Comment:: right IJ Respiratory: Present normal respiratory effort; Absent rhonchi, 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 or 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 Cardiac: Present Reg Rate and Rhythm GI: Present soft, distention and normal bowel sounds; Absent tenderness Extremities: Present normal inspection and full ROM; Absent edema Skin: Present intact; Absent erythema, pallor or mottling Comment:: Pulses weak in extremities Neuro: Present Grossly Intact, alert, awake, oriented x 3 and moves all extremities Assessment and Plan *Assessment and plan (1) Cardiogenic shock: Status: Acute Category: Medical Code(s): R57.0 - Cardiogenic shock (2) Acute on chronic HFrEF (heart failure with reduced ejection fraction): Status: Acute Category: Medical Code(s): I50.23 - Acute on chronic systolic (congestive) heart failure (3) Atrial fibrillation with RVR: Status: Acute Category: Medical Code(s): I48.91 - Unspecified atrial fibrillation (4) Ischemic cardiomyopathy: Status: Acute Category: Medical Code(s): I25.5 - Ischemic cardiomyopathy (5) Hypothyroidism (acquired): Status: Acute Category: Medical Code(s): E03.9 - Hypothyroidism, unspecified (6) DM type 2 (diabetes mellitus, type 2): Status: Acute Qualifiers: Diabetes mellitus complication status: with other specified complication 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: without detention use Qualified Code(s): E11.69 - Type 2 diabetes mellitus with other specified complication Category: Medical Code(s): E11.9 - Type 2 diabetes mellitus without complications (7) Pulmonary HTN: Status: Acute Category: Medical Code(s): I27.20 - Pulmonary hypertension, unspecified (8) CKD stage 4 due to type 2 diabetes mellitus: Status: Acute Category: Medical Code(s): E11.22 - Type 2 diabetes mellitus with diabetic chronic kidney disease; N18.4 - Chronic kidney disease, stage 4 (severe) (9) Coronary artery disease: Status: Acute Qualifiers: Associated angina: with other forms of angina Coronary Disease- Associated Artery/Lesion type: bypass graft [place] vs. transplanted heart: [place] heart Qualified Code(s): I25.708 - Atherosclerosis of coronary artery bypass graft(s), unspecified, with other forms of angina pectoris Category: Medical Code(s): I25.10 - Atherosclerotic heart disease of [place] coronary artery without angina pectoris (10) Presence of stent in coronary artery: Status: Acute Category: Surgical Code(s): Z95.5 - Presence of coronary angioplasty implant and graft (11) Hx of CABG: Status: Acute Category: Surgical Code(s): Z95.1 - Presence of aortocoronary bypass graft (12) Shock liver: Status: Acute Category: Medical Code(s): K72.00 - Acute and subacute hepatic failure without coma Plan Zackary Carrasco is a 74-year-old male with a medical history significant for A-fib, HFrEF, CAD/CABG, NSTEMI, CKD stage IV, hypertension, type 2 diabetes, BPH, GERD who presents with progressive shortness of breath, leg swelling. Patient was recently admitted to our facility last month for similar symptoms. He states he has been adherent to his medications. In the ED, patient's heart rate 120s/130s with A-fib. Cardioversion performed morning of 02/01. Tolerated well. Shock appears to be stable with adequate management. Off Bumex drip. Continues to require ICU level care. Patient's condition is critical, prognosis guarded. Kidney and liver function remains abnormal but stable. Problems addressed as follows: # Cardiogenic shock #Acute on chronic HFrEF # A-flutter RVR, status post cardioversion, now in sinus rhythm ? Presented with progressive shortness of breath, volume overload. BNP 15,400. Patient states he has been adherent to his medications, though he lives alone and family questions this. ? Patient initially treated with amiodarone drip for A-fib RVR, was discontinued. Attempts to resume beta-cholo showed clinical signs of cardiogenic shock. Patient was cardioverted on 02/01 with good results. Developed decompensation state over the next 12 hours. - Continue p.o. amiodarone 400 mg 3 times a day - Continue milrinone drip at 250 mcg, continue nitroprusside at 0.3. - Bumex IV 2mg BIDL - -20 liters since admission, -1.5 L in the past 24 hours. - Discontinue heparin drip, initiate Xarelto 15 mg to - Repeat echocardiogram obtained 02/02 showing EF of 10 to 15%. Ejection fraction 30% 1 month ago -Given LIANE/ATN, will hold hydralazine, Jardiance, spironolactone Transaminitis in the setting of cardiogenic shock and amiodarone therapy - Liver enzymes showing improvement today, bilirubin 1.1, AST 116, ALT 600, alk phos 190. - Hold statin in setting of elevated liver enzymes #LIANE on CKD stage IV #Hyperkalemia - Bilateral renals were normal on cath 12/2024 - Baseline creatinine 2.2-2.4. Creatinine 3.4, BUN 70. Magnesium 1.8 with potassium 3.9. - Caution with nephrotoxins, renally dose medication - Repeat CBC, CMP, magnesium ordered for the morning #CAD s/p CABG 2017, LUKE 2021: Continue aspirin 81 mg, clopidogrel 75 mg; holding atorvastatin 80 mg. #Hypothyroidism: TSH subtherapeutic 11.8. Continue home levothyroxine 88 mcg. #Type 2 diabetes: Continue insulin glargine decreased to 10 units tonight. Holding Jardiance. Continue low-dose sliding scale insulin with fingersticks ACHS. #BPH: Continue home finasteride 5 mg. #GERD: Continue home PPI. DNR/DNI Xarelto 15 mg daily Diabetic diet ICU/Critical care attestation This patient is critically ill with 35 minutes devoted solely to this patient managing life/organ supporting interventions that required physician assessment. This includes time spent making adjustments in ventilator settings, IV fluid administration, titration of pressors, adjustments of medications, discussion of patient with consultants and other care providers as well as updating patient and/or family (if patient by virtue of his/her condition is unable to participate in decision making). This does not include time spent performing separately billed procedures. Time is not concurrent with that of other providers.
[2025-02-07 20:58] LABS: POC Glucose,Bedside 160 (70-110)
[2025-02-07] MEDS: SENNOSIDES 8.6MG/DOCUSATE 50MG TABLET 1 TAB PO (21:02)
[2025-02-07] MEDS: PANTOPRAZOLE 40MG TABLET 40 MG PO (21:02)
[2025-02-07] MEDS: INSULIN GLARGINE 100 UNITS/ML 10ML VIAL 10 UNIT SUBCUT (21:05)
[2025-02-07] MEDS: ACETAMINOPHEN 325MG TAB 650 MG PO (21:06)
[2025-02-07] MEDS: RIVAROXABAN 15MG TABLET 15 MG PO (21:22)
--- NOTE | 2025-02-07 21:30 | PC.NURSE ---
Pt voiced complaint of burning at tip of penis while urinating and frequent urination. Urine noted in urinal at bedside is dark clement. Walker perry notified-orders to obtain urine sample for analysis. New urinal placed at bedside and pt notified of need for sample.
--- NOTE | 2025-02-07 22:30 | PC.NURSE ---
Pt noted to have multiple low BP results with MAP mid-high 50s. Pt currently on Milrinone and Nitroprusside gtt. Pt states he feels ok at this time and is asymptomatic. Walker Betancourt notified-states to continue to monitor at this time and notify if MAP continues to drop or pt becomes symptomatic.
[2025-02-08] VITALS (26 sets, daily range): BP systolic 86–134; BP diastolic 41–73; PULSE 87–110; RESP 16–20; TEMP 36.5–36.9; O2SAT 95–100; BMI 23.8
[2025-02-08] MEDS: ONDANSETRON 4MG/2ML VIAL 4 MG IV ×2 (02:13→12:18)
--- NOTE | 2025-02-08 02:30 | PC.NURSE ---
Pt states he has started coughing up blood. Cup at bedside noted to have small blood clots with small amount of blood. Pt states this is new to him. Pt also very nauseous and throwing up. Zofran has been administered. Walker Betancourt notified-states to obtain AM labs now and she will order Phenergan 12.5 IV.
[2025-02-08] MEDS: PROMETHAZINE HCL 25MG/ML 1ML VIAL 12.5 MG IV (02:43)
[2025-02-08] MEDS: SODIUM CHLORIDE 0.9% 25ML BAG 25 ML IV (02:44)
[2025-02-08 02:59] LABS: Basophils % 0.3 % (0.1-2.0); Eosinophils # 0.3 Kmm3 (0.0-0.4); Eosinophils % 3.5 % (0.1-12.0); Hematocrit 30.6 % (42.0-52.0); Hemoglobin 10.2 g/dL (14.1-18.0); Lymphocytes # 1.4 K/mm3 (0.7-4.5); Lymphocytes % 14.1 % (10-50); Mean Corpuscular HGB Conc 33.3 g/dL (31.8-35.4); Mean Corpuscular Hemoglobin 27.5 pg (27.0-31.2); Mean Corpuscular Volume 82.5 fl (80-94); Mean Platelet Volume 9.4 fl (7.4-10.4); Monocytes # 1.5 K/mm3 (0.1-1.0); Monocytes % 15.5 % (1.7-9.3); Neutrophils # 6.3 K/mm3 (1.8-7.8); Neutrophils % 66.1 % (37.0-80.0); Nucleated Red Blood Cells # 0 10^3/uL; Nucleated Red Blood Cells % 0 %; Platelet Count 266 K/mm3 (142-424); Red Blood Count 3.71 M/mm3 (4.60-6.20); Red Cell Distribution Width 15.1 % (11.5-17.5); Red Cell Distribution Width-SD 45.5 fL; White Blood Count 9.6 K/mm3 (4.8-10.8)
[2025-02-08 03:00] LABS: Albumin Level 3.5 g/dl (3.5-5.0); Chloride 89 mmol/L (98-107); Sodium 125 mmol/L (136-145)
[2025-02-08 03:01] LABS: Potassium 3.5 mmoL/L (3.5-5.1)
[2025-02-08 03:03] LABS: Alanine Aminotransferase 435 U/L (12-78); Alkaline Phosphatase 170 U/L (38-126); Anion Gap 8.5 mEq/L (5-15); Aspartate Amino Transferase 82 U/L (17-59); Bilirubin,Direct 0.5 mg/dl (0.0-0.4); Bilirubin,Total 1.5 mg/dl (0.2-1.3); Blood Urea Nitrogen 72 mg/dl (9-20); Carbon Dioxide 31 mmol/L (22.0-30.0); Creatinine Clearance Estimated 22 mL/min (50-200); Estimated Glomerular Filt Rate 18 ml/min (>60); GFR (African American) 22 ML/MIN (>60); Total Protein,Serum 6.8 g/dl (6.3-8.2)
[2025-02-08 03:04] LABS: Calcium 8.5 mg/dl (8.4-10.2); Chol/HDL Ratio 2.5 (1-3.5); Cholesterol 121 mg/dl (140-200); Glucose 127 mg/dl (74-100); HDL Cholesterol 49 mg/dl (40-60); Triglycerides 85 mg/dl (30-150); VLDL Cholesterol 17 mg/dL (0-40)
[2025-02-08 03:15] LABS: Direct LDL Cholesterol 45.48 mg/dL (100-129)
[2025-02-08 04:23] LABS: Microscopic, Urine URINE MICROSCOPIC (MICROSCOPIC)
[2025-02-08 04:38] LABS: Appearance,Urine CLOUDY (Clear); Blood, Urine 3+ (Negative); Color,Urine RED (Yellow); Glucose,Urine (UA) Negative (Negative); Ketones,Urine Negative (Negative); Leukocyte Esterase,Urine 2+ (Negative); Nitrate,Urine POSITIVE (Negative); Protein,Urine 2+ (Negative)
[2025-02-08 04:55] LABS: Bilirubin,Urine Negative (Negative)
[2025-02-08 04:56] LABS: Bacteria,Urine 2+ /lpf; RBC,Urine TNTC #/hpf (0-3); WBC,Urine 20-50 #/hpf (0-3)
[2025-02-08] MEDS: MEROPENEM 1 GM in 0.9 % SODIUM CHLORIDE 100 ML IV (05:53)
[2025-02-08] MEDS: humaLOG 100 UNITS/ML 10ML VIAL (SSI) SUBCUT ×4 (06:09→20:48)
[2025-02-08] MEDS: LEVOTHYROXINE 88MCG (0.088MG) TAB 88 MCG PO (06:09)
[2025-02-08 06:12] LABS: POC Glucose,Bedside 166 (70-110)
[2025-02-08] MEDS: ISOSORBIDE DINITRATE 20 MG TABLET PO ×3 (08:39→20:48)
[2025-02-08] MEDS: CEFTRIAXONE 1 GM 1 GM in 0.9 % SODIUM CHLORIDE 50 ML IV (08:39)
[2025-02-08] MEDS: AMIODARONE 200MG TABLET 400 MG PO ×2 (08:39→20:48)
[2025-02-08] MEDS: ASPIRIN EC 81MG TABLET 81 MG PO (08:39)
[2025-02-08] MEDS: BUMETANIDE 1MG/4ML VIAL 2 MG IV ×2 (08:40→16:24)
[2025-02-08] MEDS: CLOPIDOGREL 75MG TAB 75 MG PO (08:40)
[2025-02-08] MEDS: POTASSIUM CHLORIDE 20MEQ TAB 40 MEQ PO (10:00)
--- NOTE | 2025-02-08 10:27 | P.PN_ITS ---
Subjective Subjective Date: 02/08/25 Time: 10:00 Principal diagnosis: HFrEF, CKD Interval history: The patient states that he feels good this morning. He still states that he has a little shortness of breath when he is exerting himself, but overall much better. He denies any chest pain or pressure. He states he may have some mild edema in his lower extremities today. On exam no edema is noted. He denies any fever, chills, nausea, vomiting, diarrhea. He states that he still has a little bit of orthopnea but much better than it was. He remains on the milrinone and nitroprusside drips this morning. Exam Data for Last 24 hours Vital signs and Labs for Last 24 Hours: Temp Pulse Resp BP Pulse Ox O2 Del Method O2 Flow Rate 98.3 F 102 H 18 109/54 L 98 Room Air 2 02/08/25 08:02 02/08/25 10:00 02/08/25 10:00 02/08/25 10:00 02/08/25 10:00 02/08/25 10:00 02/06/25 22:00 Laboratory Results - last 24 hr 02/07/25 10:58: POC Glucose 401 H* 02/07/25 15:15: APTT 55.5 02/07/25 16:42: POC Glucose 157 H 02/07/25 17:58: Sodium 125 L, Potassium 3.8, Chloride 88 L, Carbon Dioxide 33 H, Anion Gap 7.8, BUN 69 H, Creatinine 3.50 H, Estimated Creat Clear 21, Estimated GFR 17 L*, Est GFR ( Amer) 21 L, Glucose 139 H D, Calcium 8.5, Magnesium 1.8, Total Bilirubin 1.2, AST 91 H, ALT 498 H*, Alkaline Phosphatase 167 H, Total Protein 6.8, Albumin 3.5, Globulin 3.3 H, Albumin/Globulin Ratio 1.1 02/07/25 20:50: POC Glucose 160 H 02/08/25 02:42: WBC 9.6, RBC 3.71 L, Hgb 10.2 L, Hct 30.6 L, MCV 82.5, MCH 27.5, MCHC 33.3, RDW 15.1, Plt Count 266, MPV 9.4, Neut % (Auto) 66.1, Lymph % (Auto) 14.1, [place] % (Auto) 15.5 H, Eos % (Auto) 3.5, Baso % (Auto) 0.3, Neut # (Auto) 6.3, Lymph # (Auto) 1.4, [place] # (Auto) 1.5 H, Eos # (Auto) 0.3, Baso # (Auto) 0.0, Sodium 125 L, Potassium 3.5, Chloride 89 L, Carbon Dioxide 31 H, Anion Gap 8.5, BUN 72 H, Creatinine 3.40 H, Estimated Creat Clear 22, Estimated GFR 18 L*, Est GFR ( Amer) 22 L, Glucose 127 H, Calcium 8.5, Total Bilirubin 1.5 H, Direct Bilirubin 0.5 H, Conjugated Bilirubin 0.0, Indirect Bilirubin 1.0 H, Unconjugated Bilirubin 1.0, AST 82 H, ALT 435 H*, Alkaline Phosphatase 170 H, Total Protein 6.8, Albumin 3.5, Triglycerides 85, Cholesterol 121 L, LDL Cholesterol Direct 45.48 L, VLDL Cholesterol 17, HDL Cholesterol 49, Cholesterol/HDL Ratio 2.5 02/08/25 04:16: Urine Color Red, Urine Appearance Cloudy, Urine pH 6.0, Ur Specific [place] 1.010, Urine Protein 2+ A, Urine Glucose (UA) Negative, Urine Ketones Negative, Urine Blood 3+ A, Urine Nitrate Positive A, Urine Bilirubin Negative, Urine Urobilinogen 1.0, Ur Leukocyte Esterase 2+ A, Urine RBC Tntc, Urine WBC 20-50, Ur Squamous Epith Cells 3-5, Urine Bacteria 2+ 02/08/25 05:52: POC Glucose 166 H I & O for Last 24 hours: Intake & Output 02/05/25 02/06/25 02/07/25 02/08/25 23:59 23:59 23:59 23:59 Intake Total 2472.064 / 2472.064 973.466 / 798.127 4460.094 / 1206.094 435 / 435 Output Total 4565 / 4790 3300 / 3300 1725 / 1725 500 / 500 Balance -2092.936 / -2317.936 -2326.534 / -2326.534 -518.906 / -518.906 -65 / - 65 Weight 184 lb 1.376 oz 177 lb 0.499 oz 177 lb 0.499 oz 160 lb 11.472 oz Constitutional Constitutional: no acute distress and average body habitus *Routine HEENT Exam Head: Present normocephalic and atraumatic ENT: Present mucous membranes moist *Routine Neck Exam Neck: Present supple, full ROM and normal carotid upstroke; Absent JVD, carotid bruit or lymphadenopathy *Routine Respiratory Exam Respiratory: Present CTA bilaterally, normal respiratory effort, able to speak in complete sentences and symmetric chest movement *Routine Cardiovascular Exam Cardiovascular: Present RRR, Normal S1 and Normal S2; Absent murmur or gallop *Routine Abdominal Exam Abdominal: Present soft and normoactive bowel sounds; Absent tenderness, distended or organomegaly *Routine Extremities Exam Extremities: Present full ROM, pulses intact and normal capillary refill; Absent cyanosis, clubbing or edema *Routine Skin Exam Skin: Present intact and warm; Absent erythema *Routine Neurological Exam Neurological: Present alert, oriented X3 and CN II-XII intact; Absent sensory deficit or motor deficit Routine Psychiatric Exam Psychiatric: Present normal affect Progress Note: A&P Assessment and plan (1) Cardiogenic shock: Status: Acute (2) Acute on chronic HFrEF (heart failure with reduced ejection fraction): Status: Acute (3) Atrial fibrillation with RVR: Status: Acute (4) Ischemic cardiomyopathy: Status: Acute (5) Coronary artery disease: Status: Acute (6) Hx of CABG: Status: Acute (7) Hypothyroidism (acquired): Status: Acute (8) DM type 2 (diabetes mellitus, type 2): Status: Acute (9) Pulmonary HTN: Status: Acute (10) CKD stage 4 due to type 2 diabetes mellitus: Status: Acute (11) Presence of stent in coronary artery: Status: Acute (12) Shock liver: Status: Acute Assessment and Plan Assessment and Plan for All Diagnoses:: Plan: 1. The patient was admitted to the hospital with cardiogenic shock and acute on chronic HFrEF. His EF is 10 to 15%. He remains on a milrinone drip and a nitroprusside drip. He is also getting Bumex 2 mg IV twice daily. Will continue with diuresis with IV Bumex today and continue the milrinone drip as well. The patient is a -20 L since admission. 2. Stop his nitroprusside drip today. 3. Increase Isordil to 20 mg 3 times daily since nitroprusside drip is being stopped.. 4. If his blood pressure elevates coming off of the nitroprusside drip, then will start him on hydralazine 10 mg 3 times daily. 5. His liver enzymes continue to improve today. 5. His creatinine remains at 3.4 today. His baseline creatinine is 2.2-2.4. Renal function is too high to add spironolactone or DEVI/ARB/Arni. 6. No beta-cholo at this time due to his cardiogenic shock. 7. Will consider Jardiance/Farxiga once he is euvolemic. 8. His blood pressure is acceptable at this time. 9. His LDL goal is less than 55. His LDL is 45. No statin at this time due to his elevated liver enzymes which are improving. 10. Paroxysmal atrial fibrillation is sinus rhythm. He is on amiodarone. Will decrease his amiodarone to 400 mg twice daily. He will need to be on 400 mg twice daily for 2 weeks and then he will decrease down to 200 mg for 2 weeks and then 200 mg daily thereafter. 11. Coronary artery disease is present. This is likely stable. Continue Plavix. 12. His heparin drip has been and stopped and he is now on Xarelto for long- term anticoagulation due to PAFib. 13. Stop Aspirin as the patient does not need to be on triple therapy. 14. Further recommendations will be made pending the patient's response to treatment. Thank you for the opportunity to help participate in the care of this patient. All recommendations and orders are per Dr. Lees.
[2025-02-08 11:11] LABS: POC Glucose,Bedside 302 (70-110)
[2025-02-08] MEDS: OXYCODONE 5MG IMMEDIATE RELEASE TABLET 10 MG PO (13:48)
--- NOTE | 2025-02-08 13:51 | PC.NURSE ---
PT CALLED AT AND ASKED TO SEE HIS NURSE. THIS RN WENT TO THE BEDSIDE AND ASKED PT HOW I COULD HELP HIM. HE WAS VERY FRUSTRATED AND TOLD ME, I AM GOING TO TALK TO YOU CIVILIZED BUT I HAVE BEEN ASKING FOR PAIN MEDICATION SINCE 10 O/CLOCK . THIS RN STATED THAT THIS RN HAD NOT BEEN TOLD THAT HE HAD ASKED OFR PAIN MEDICATION. TECH ALSO STATED THAT HE HAD NOT CALLED OUT OR ASKED FOR PAIN MEDICATION WHILE IN THE PT'S ROOM. THIS RN ASSESSED PT'S PAIN AND PROVIDED PRN PAIN MEDICATION. PT STATED THAT THE MEDICATION WITH THE P NAME DOES NOT HELP HIM. ONLY MEDICATIONS ORDERED WERE OXY 10MG AND TYLENOL 650MG. PT EDUCATED THAT WE WILL TRY THE OXY FIRST AND REASSESS PAIN IN 30 MINUTES.
[2025-02-08] MEDS: MILRINONE LACTATE 20 MG in 0.9 % SODIUM CHLORIDE 80 ML 6.06 MG IV (16:24)
[2025-02-08] MEDS: RIVAROXABAN 15MG TABLET 15 MG PO (16:30)
[2025-02-08] MEDS: LIDOCAINE 5% TRANSDERMAL PATCH 1 EACH TD (16:30)
[2025-02-08 16:43] LABS: POC Glucose,Bedside 241 (70-110)
--- NOTE | 2025-02-08 18:39 | PC.NURSE ---
PT HAS DONE BETTER THIS AFTERNOON. HE HAS BEEN TREATED PER MAR FOR RIGHT LEG PAIN. LUNGS REMAIN CLEAR. REMAINS ON ROOM AIR. VSS. HE HAS HAD 2 EPISODES OF INCONTINENCE THIS SHIFT. URINE IS RED TINGED. MD IS AWARE AND STATED TO GIVE PO DOSE OF XERELTO THIS EVENING AND MONITOR BLOOD COUNTS CLOSELY.
[2025-02-08 20:44] LABS: POC Glucose,Bedside 183 (70-110)
[2025-02-08] MEDS: PANTOPRAZOLE 40MG TABLET 40 MG PO (20:48)
[2025-02-08] MEDS: SENNOSIDES 8.6MG/DOCUSATE 50MG TABLET 1 TAB PO (20:48)
[2025-02-08] MEDS: INSULIN GLARGINE 100 UNITS/ML 10ML VIAL 10 UNIT SUBCUT (20:49)
--- NOTE | 2025-02-08 21:38 | P.PN_ITS ---
Subjective *Date: 02/08/25 *Time: 21:38 Interval history: Patient doing well overall today, having pain at right femoral cath site. Started lidocaine patch. Cardiology weaning medications, including nitroprusside. Tentative plan to transition off milrinone tomorrow. Continue diuresis. Exam Data for Last 24 hours Vital signs and Labs for Last 24 Hours: Temp Pulse Resp BP Pulse Ox O2 Del Method O2 Flow Rate 97.7 F 96 H 20 124/66 96 Room Air 2 02/08/25 20:00 02/08/25 21:00 02/08/25 21:00 02/08/25 21:00 02/08/25 21:00 02/08/25 21:00 02/06/25 22:00 Laboratory Results - last 24 hr 02/08/25 02:42: WBC 9.6, RBC 3.71 L, Hgb 10.2 L, Hct 30.6 L, MCV 82.5, MCH 27.5, MCHC 33.3, RDW 15.1, Plt Count 266, MPV 9.4, Neut % (Auto) 66.1, Lymph % (Auto) 14.1, [place] % (Auto) 15.5 H, Eos % (Auto) 3.5, Baso % (Auto) 0.3, Neut # (Auto) 6.3, Lymph # (Auto) 1.4, [place] # (Auto) 1.5 H, Eos # (Auto) 0.3, Baso # (Auto) 0.0, Sodium 125 L, Potassium 3.5, Chloride 89 L, Carbon Dioxide 31 H, Anion Gap 8.5, BUN 72 H, Creatinine 3.40 H, Estimated Creat Clear 22, Estimated GFR 18 L*, Est GFR ( Amer) 22 L, Glucose 127 H, Calcium 8.5, Total Bilirubin 1.5 H, Direct Bilirubin 0.5 H, Conjugated Bilirubin 0.0, Indirect Bilirubin 1.0 H, Unconjugated Bilirubin 1.0, AST 82 H, ALT 435 H*, Alkaline Phosphatase 170 H, Total Protein 6.8, Albumin 3.5, Triglycerides 85, Cholesterol 121 L, LDL Cholesterol Direct 45.48 L, VLDL Cholesterol 17, HDL Cholesterol 49, Cholesterol/HDL Ratio 2.5 02/08/25 04:16: Urine Color Red, Urine Appearance Cloudy, Urine pH 6.0, Ur Specific [place] 1.010, Urine Protein 2+ A, Urine Glucose (UA) Negative, Urine Ketones Negative, Urine Blood 3+ A, Urine Nitrate Positive A, Urine Bilirubin Negative, Urine Urobilinogen 1.0, Ur Leukocyte Esterase 2+ A, Urine RBC Tntc, Urine WBC 20-50, Ur Squamous Epith Cells 3-5, Urine Bacteria 2+ 02/08/25 05:52: POC Glucose 166 H 02/08/25 11:03: POC Glucose 302 H* 02/08/25 16:28: POC Glucose 241 H 02/08/25 20:38: POC Glucose 183 H I & O for Last 24 hours: Intake & Output 02/05/25 02/06/25 02/07/25 02/08/25 23:59 23:59 23:59 23:59 Intake Total 2472.064 / 2472.064 973.466 / 943.217 2136.094 / 1206.094 745 / 745 Output Total 4565 / 4790 3300 / 3300 1725 / 1725 1275 / 1275 Balance -2092.936 / -2317.936 -2326.534 / -2326.534 -518.906 / -518.906 -530 / - 530 Weight 83.5 kg 80.3 kg 80.3 kg 72.9 kg Constitutional Constitutional: no acute distress and average body habitus *Routine HEENT Exam Head: Present normocephalic and atraumatic ENT: Present mucous membranes moist *Routine Neck Exam Neck: Present supple, full ROM and normal carotid upstroke; Absent JVD, carotid bruit or lymphadenopathy *Routine Respiratory Exam Respiratory: Present CTA bilaterally, normal respiratory effort, able to speak in complete sentences and symmetric chest movement *Routine Cardiovascular Exam Cardiovascular: Present RRR, Normal S1 and Normal S2; Absent murmur or gallop *Routine Abdominal Exam Abdominal: Present soft and normoactive bowel sounds; Absent tenderness, distended or organomegaly *Routine Extremities Exam Extremities: Present full ROM, pulses intact and normal capillary refill; Absent cyanosis, clubbing or edema *Routine Skin Exam Skin: Present intact and warm; Absent erythema *Routine Neurological Exam Neurological: Present alert, oriented X3 and CN II-XII intact; Absent sensory deficit or motor deficit Routine Psychiatric Exam Psychiatric: Present normal affect Assessment and Plan *Assessment and plan (1) Cardiogenic shock: Status: Acute Category: Medical Code(s): R57.0 - Cardiogenic shock (2) Acute on chronic HFrEF (heart failure with reduced ejection fraction): Status: Acute Category: Medical Code(s): I50.23 - Acute on chronic systolic (congestive) heart failure (3) Atrial fibrillation with RVR: Status: Acute Category: Medical Code(s): I48.91 - Unspecified atrial fibrillation (4) Ischemic cardiomyopathy: Status: Acute Category: Medical Code(s): I25.5 - Ischemic cardiomyopathy (5) Hypothyroidism (acquired): Status: Acute Category: Medical Code(s): E03.9 - Hypothyroidism, unspecified (6) DM type 2 (diabetes mellitus, type 2): Status: Acute Qualifiers: Diabetes mellitus retirement insulin use: without lobsterman use Diabetes mellitus complication status: with other specified complication Qualified Code(s): E11.69 - Type 2 diabetes mellitus with other specified complication Category: Medical Code(s): E11.9 - Type 2 diabetes mellitus without complications (7) Pulmonary HTN: Status: Acute Category: Medical Code(s): I27.20 - Pulmonary hypertension, unspecified (8) CKD stage 4 due to type 2 diabetes mellitus: Status: Acute Category: Medical Code(s): E11.22 - Type 2 diabetes mellitus with diabetic chronic kidney disease; N18.4 - Chronic kidney disease, stage 4 (severe) (9) Coronary artery disease: Status: Acute Qualifiers: Coronary Disease-Associated Artery/Lesion type: bypass graft [place] vs. transplanted heart: [place] heart Associated angina: with other forms of angina Qualified Code(s): I25.708 - Atherosclerosis of coronary artery bypass graft(s), unspecified, with other forms of angina pectoris Category: Medical Code(s): I25.10 - Atherosclerotic heart disease of [place] coronary artery without angina pectoris (10) Presence of stent in coronary artery: Status: Acute Category: Surgical Code(s): Z95.5 - Presence of coronary angioplasty implant and graft (11) Hx of CABG: Status: Acute Category: Surgical Code(s): Z95.1 - Presence of aortocoronary bypass graft (12) Shock liver: Status: Acute Category: Medical Code(s): K72.00 - Acute and subacute hepatic failure without coma Plan Zackary Toy is a 74-year-old male with a medical history significant for A-fib, HFrEF, CAD/CABG, NSTEMI, CKD stage IV, hypertension, type 2 diabetes, BPH, GERD who presents with progressive shortness of breath, leg swelling. Patient was recently admitted to our facility last month for similar symptoms. He states he has been adherent to his medications. In the ED, patient's heart rate 120s/130s with A-fib. Cardioversion performed morning of 02/01. Tolerated well. Shock appears to be stable with adequate management. Off Bumex drip. Continues to require ICU level care. Patient's condition is critical, prognosis guarded. Kidney and liver function remains abnormal but stable. Problems addressed as follows: # Cardiogenic shock #Acute on chronic HFrEF # A-flutter RVR, status post cardioversion, now in sinus rhythm ? Presented with progressive shortness of breath, volume overload. BNP 15,400. Patient states he has been adherent to his medications, though he lives alone and family questions this. ? Patient initially treated with amiodarone drip for A-fib RVR, was discontinued. Attempts to resume beta-cholo showed clinical signs of cardiogenic shock. Patient was cardioverted on 02/01 with good results. Developed decompensation state over the next 12 hours. - Continue p.o. amiodarone 400 mg 3 times a day - Continue milrinone drip at 250 mcg, discontinued nitroprusside today. - Bumex IV 2mg BIDL - -20 liters since admission, -1.5 L in the past 24 hours. - Discontinue heparin drip, initiate Xarelto 15 mg. - Repeat echocardiogram obtained 02/02 showing EF of 10 to 15%. Ejection fraction 30% 1 month ago -Given LIANE/ATN, will hold hydralazine, Jardiance, spironolactone Transaminitis in the setting of cardiogenic shock and amiodarone therapy - Liver enzymes showing improvement today, bilirubin 1.1, AST 116, ALT 600, alk phos 190. - Hold statin in setting of elevated liver enzymes #LIANE on CKD stage IV #Hyperkalemia - Bilateral renals were normal on cath 12/2024 - Baseline creatinine 2.2-2.4. Creatinine 3.4, today. - Caution with nephrotoxins, renally dose medication - Repeat CBC, CMP, magnesium ordered for the morning #CAD s/p CABG 2017, LUKE 2021: Continue aspirin 81 mg, clopidogrel 75 mg; holding atorvastatin 80 mg. #Hypothyroidism: TSH subtherapeutic 11.8. Continue home levothyroxine 88 mcg. #Type 2 diabetes: Continue insulin glargine decreased to 10 units tonight. Holding Jardiance. Continue low-dose sliding scale insulin with fingersticks ACHS. #BPH: Continue home finasteride 5 mg. #GERD: Continue home PPI. DNR/DNI Xarelto 15 mg daily Diabetic diet ICU/Critical care attestation This patient is critically ill with 35 minutes devoted solely to this patient managing life/organ supporting interventions that required physician assessment. This includes time spent making adjustments in ventilator settings, IV fluid administration, titration of pressors, adjustments of medications, discussion of patient with consultants and other care providers as well as updating patient and/or family (if patient by virtue of his/her condition is unable to participate in decision making). This does not include time spent performing separately billed procedures. Time is not concurrent with that of other providers.
[2025-02-09] VITALS (22 sets, daily range): BP systolic 99–133; BP diastolic 54–75; PULSE 88–106; RESP 12–28; TEMP 36.4–37.3; O2SAT 93–100; BMI 23.8
--- NOTE | 2025-02-09 04:00 | PC.NURSE ---
Central line dressing is half way off. gathered appropriate supplies including sterile gloves and mask for pt and myself. Old dressing was removed, site was cleaned with chloraprep, agidex applied and then a new tegaderm was placed over the site.
[2025-02-09] MEDS: humaLOG 100 UNITS/ML 10ML VIAL (SSI) SUBCUT ×4 (06:06→20:36)
[2025-02-09 06:15] LABS: POC Glucose,Bedside 254 (70-110)
[2025-02-09] MEDS: CEFTRIAXONE 1 GM 1 GM in 0.9 % SODIUM CHLORIDE 50 ML IV (08:01)
[2025-02-09] MEDS: MILRINONE LACTATE 20 MG in 0.9 % SODIUM CHLORIDE 80 ML 6.06 MG IV (08:01)
[2025-02-09] MEDS: AMIODARONE 200MG TABLET 400 MG PO ×2 (08:02→20:36)
[2025-02-09] MEDS: ISOSORBIDE DINITRATE 20 MG TABLET PO ×3 (08:02→20:36)
[2025-02-09] MEDS: LEVOTHYROXINE 88MCG (0.088MG) TAB 88 MCG PO (08:02)
[2025-02-09] MEDS: CLOPIDOGREL 75MG TAB 75 MG PO (08:02)
[2025-02-09] MEDS: BUMETANIDE 1MG/4ML VIAL 2 MG IV ×2 (08:02→16:37)
[2025-02-09 08:57] LABS: Basophils % 0.3 % (0.1-2.0); Eosinophils # 0.3 Kmm3 (0.0-0.4); Eosinophils % 2.9 % (0.1-12.0); Hematocrit 30.4 % (42.0-52.0); Hemoglobin 9.7 g/dL (14.1-18.0); Immature Granulocytes # 0.06 10^3uL; Immature Granulocytes % 0.5 %; Lymphocytes # 0.9 K/mm3 (0.7-4.5); Lymphocytes % 8.4 % (10-50); Mean Corpuscular HGB Conc 31.9 g/dL (31.8-35.4); Mean Corpuscular Hemoglobin 26.9 pg (27.0-31.2); Mean Corpuscular Volume 84.4 fl (80-94); Mean Platelet Volume 9.3 fl (7.4-10.4); Monocytes # 1.5 K/mm3 (0.1-1.0); Monocytes % 13.8 % (1.7-9.3); Neutrophils # 8.1 K/mm3 (1.8-7.8); Neutrophils % 74.1 % (37.0-80.0); Nucleated Red Blood Cells # 0 10^3/uL; Nucleated Red Blood Cells % 0 %; Platelet Count 266 K/mm3 (142-424); Red Cell Distribution Width 15.3 % (11.5-17.5); Red Cell Distribution Width-SD 46.7 fL
[2025-02-09 09:26] LABS: Alanine Aminotransferase 288 U/L (12-78); Albumin Level 3.5 g/dl (3.5-5.0); Albumin/Globulin Ratio 1.1 (1.1-1.8); Alkaline Phosphatase 125 U/L (38-126); Anion Gap 8.1 mEq/L (5-15); Aspartate Amino Transferase 51 U/L (17-59); Bilirubin,Total 0.8 mg/dl (0.2-1.3); Blood Urea Nitrogen 69 mg/dl (9-20); Calcium 8.6 mg/dl (8.4-10.2); Carbon Dioxide 32 mmol/L (22.0-30.0); Chloride 91 mmol/L (98-107); Creatinine Clearance Estimated 22 mL/min (50-200); Estimated Glomerular Filt Rate 20 ml/min (>60); GFR (African American) 24 ML/MIN (>60); Globulin 3.1 g/dL (1.3-3.2); Glucose 266 mg/dl (74-100); Potassium 4.1 mmoL/L (3.5-5.1); Sodium 127 mmol/L (136-145); Total Protein,Serum 6.6 g/dl (6.3-8.2)
--- NOTE | 2025-02-09 10:22 | PC.NURSE ---
verbal order given per Macey Carrillo APRN to titrate Milirone to 0.125 mcg/kg/min.
[2025-02-09 11:21] LABS: POC Glucose,Bedside 298 (70-110)
--- NOTE | 2025-02-09 11:47 | P.PN_ITS ---
Subjective Subjective Date: 02/09/25 Time: 09:30 Principal diagnosis: HFrEF, CKD Interval history: The patient was admitted for cardiogenic shock. He states that he feels good this morning. He denies any chest pain or pressure this morning. He denies any shortness of breath or edema this morning he states he may have some mild edema in his lower extremities today. His nitroprusside drip was stopped yesterday. He remains on a milrinone drip this morning and is still getting IV Lasix scheduled intermittently. His vital signs are stable. Will continue to try to get him off of all of his IV drips. Exam Data for Last 24 hours Vital signs and Labs for Last 24 Hours: Temp Pulse Resp BP Pulse Ox O2 Del Method O2 Flow Rate 97.6 F 88 18 106/59 L 95 Room Air 2 02/09/25 03:58 02/09/25 11:00 02/09/25 11:00 02/09/25 11:00 02/09/25 11:00 02/09/25 11:00 02/06/25 22:00 Laboratory Results - last 24 hr 02/08/25 16:28: POC Glucose 241 H 02/08/25 20:38: POC Glucose 183 H 02/09/25 06:00: POC Glucose 254 H 02/09/25 08:47: WBC 11.0 H, RBC 3.60 L, Hgb 9.7 L, Hct 30.4 L, MCV 84.4, MCH 26.9 L, MCHC 31.9, RDW 15.3, Plt Count 266, MPV 9.3, Neut % (Auto) 74.1, Lymph % (Auto) 8.4 L, [place] % (Auto) 13.8 H, Eos % (Auto) 2.9, Baso % (Auto) 0.3, Neut # (Auto) 8.1 H, Lymph # (Auto) 0.9, [place] # (Auto) 1.5 H, Eos # (Auto) 0.3, Baso # (Auto) 0.0, Sodium 127 L, Potassium 4.1, Chloride 91 L, Carbon Dioxide 32 H, Anion Gap 8.1, BUN 69 H, Creatinine 3.10 H, Estimated Creat Clear 22, Estimated GFR 20 L, Est GFR ( Amer) 24 L, Glucose 266 H, Calcium 8.6, Magnesium 2.0 D, Total Bilirubin 0.8, AST 51 D, ALT 288 H D, Alkaline Phosphatase 125, Total Protein 6.6, Albumin 3.5, Globulin 3.1, Albumin/Globulin Ratio 1.1 02/09/25 11:11: POC Glucose 298 H I & O for Last 24 hours: Intake & Output 02/06/25 02/07/25 02/08/25 02/09/25 23:59 23:59 23:59 23:59 Intake Total 973.466 / 749.674 9138.094 / 1206.094 745 / 745 348.373 / 348.373 Output Total 3300 / 3300 1725 / 1725 1350 / 1350 475 / 475 Balance -2326.534 / -2326.534 -518.906 / -518.906 -605 / -605 -126.627 / - 126.627 Weight 177 lb 0.499 oz 177 lb 0.499 oz 160 lb 11.472 oz 160 lb 11.472 oz Microbiology Reports for the Last 24 Hours: Microbiology 02/08/25 04:16 Urine,Clean Catch Urine Culture - Preliminary Constitutional Constitutional: no acute distress and average body habitus *Routine HEENT Exam Head: Present normocephalic and atraumatic ENT: Present mucous membranes moist *Routine Neck Exam Neck: Present supple, full ROM and normal carotid upstroke; Absent JVD, carotid bruit or lymphadenopathy *Routine Respiratory Exam Respiratory: Present CTA bilaterally, normal respiratory effort, able to speak in complete sentences and symmetric chest movement *Routine Cardiovascular Exam Cardiovascular: Present RRR, Normal S1, Normal S2 and tachycardia; Absent murmur or gallop *Routine Abdominal Exam Abdominal: Present soft and normoactive bowel sounds; Absent tenderness, dis tended or organomegaly *Routine Extremities Exam Extremities: Present full ROM, pulses intact and normal capillary refill; Absent cyanosis, clubbing or edema *Routine Skin Exam Skin: Present intact and warm; Absent erythema *Routine Neurological Exam Neurological: Present alert, oriented X3 and CN II-XII intact; Absent sensory deficit or motor deficit Routine Psychiatric Exam Psychiatric: Present normal affect Progress Note: A&P Assessment and plan (1) Cardiogenic shock: Status: Acute (2) Acute on chronic HFrEF (heart failure with reduced ejection fraction): Status: Acute (3) Atrial fibrillation with RVR: Status: Acute (4) Ischemic cardiomyopathy: Status: Acute (5) Hypothyroidism (acquired): Status: Acute (6) DM type 2 (diabetes mellitus, type 2): Status: Acute (7) Pulmonary HTN: Status: Acute (8) CKD stage 4 due to type 2 diabetes mellitus: Status: Acute (9) Coronary artery disease: Status: Acute (10) Presence of stent in coronary artery: Status: Acute (11) Hx of CABG: Status: Acute (12) Shock liver: Status: Acute Assessment and Plan Assessment and Plan for All Diagnoses:: Plan: 1. The patient was admitted to the hospital with cardiogenic shock and acute on chronic HFrEF. His EF is 10 to 15%. His nitroprusside drip was stopped yesterday. He remains on a milrinone drip. He is still getting Bumex 2 mg IV twice daily. He is -21 L since admission. Will continue IV Bumex at this time. 2. Decrease the milrinone drip to 0.125 mcg. 3. Continue Isordil. 4. If his blood pressure elevates off of the nitroprusside drip, then will start him on hydralazine 10 mg 3 times daily. 5. His creatinine is 3.1 today and improving. His baseline creatinine is 2.2- 2.4. Renal function is too high to add spironolactone or DEVI/ARB/Arni. 6. No beta-cholo at this time due to his cardiogenic shock. 7. Will consider Jardiance/Farxiga once he is euvolemic. 8. His blood pressure is acceptable at this time. 9. His LDL goal is less than 55. His LDL is 45. No statin at this time due to his elevated liver enzymes which are improving. 10. Paroxysmal atrial fibrillation is sinus rhythm. He is on amiodarone. Will decrease his amiodarone to 400 mg twice daily. He will need to be on 400 mg twice daily for 2 weeks and then he will decrease down to 200 mg for 2 weeks and then 200 mg daily thereafter. 11. He is on Xarelto for long-term anticoagulation due to PAFib. 12. Coronary artery disease is present. This is likely stable. Continue Plavix. 13. Heart rate remains slightly elevated but stable. 14. Further recommendations will be made pending the patient's response to treatment. Thank you for the opportunity to help participate in the care of this patient. All recommendations and orders are per Dr. Lees. Addendum: Nursing staff called around 1142 to report that the patient's urine was very dark brown and they were obtaining a UA because of the urine color change. Will go ahead and stop his milrinone drip at this time as the patient may be getting too dehydrated. Start hydralazine 10 mg p.o. 3 times daily to keep his systolic blood pressure in the 90s. Will continue to monitor.
--- NOTE | 2025-02-09 12:43 | PC.NURSE ---
spoke with Doe Carrillo, [facility] who states to stop pt's Milirone infusion. To give Hydralazine and Imdur. Current BP 115/55, instructed okay to give meds.
[2025-02-09] MEDS: HYDRALAZINE 10MG TABLET 10 MG PO ×2 (12:53→20:36)
--- NOTE | 2025-02-09 13:39 | PC.NURSE ---
physical therapy came to work with patient, pt refused. pt has refused all therapy today or to get up to the chair to sit for meals.
--- NOTE | 2025-02-09 13:42 | PC.NURSE ---
central line dressing change using sterile technique.
--- NOTE | 2025-02-09 14:59 | PC.NURSE ---
Verbal order per Dr. Corona to transfer patient from ICU status to Stepdown.
[2025-02-09 16:45] LABS: POC Glucose,Bedside 233 (70-110)
[2025-02-09] MEDS: RIVAROXABAN 15MG TABLET 15 MG PO (17:04)
--- NOTE | 2025-02-09 17:07 | PC.NURSE ---
pt sitting up in bed. lung sounds clear t/o. NSR to Sinus tach on the monitor. abdomen soft, nontender, bowel sounds active. pt voiding per urinal with urine being blood tinge aware. pt also up to BSC with assist. pt has right IJ triple lumen in place. pt was weaned off Milrinone this shift. pt refused to work with physical therapy or get out of the bed this shift. pt became rude with staff when asking if he would like to get up. call light w/i reach. bed alarm in place.
[2025-02-09 20:35] LABS: POC Glucose,Bedside 281 (70-110)
[2025-02-09] MEDS: SENNOSIDES 8.6MG/DOCUSATE 50MG TABLET 1 TAB PO (20:36)
[2025-02-09] MEDS: PANTOPRAZOLE 40MG TABLET 40 MG PO (20:36)
[2025-02-09] MEDS: INSULIN GLARGINE 100 UNITS/ML 10ML VIAL 10 UNIT SUBCUT (20:37)
--- NOTE | 2025-02-09 21:04 | P.PN_ITS ---
Subjective *Date: 02/09/25 *Time: 21:04 Interval history: Patient looks little weaker today, but has not been moving or ambulating much. Very deconditioned. Discontinue milrinone. Continue treatment of UTI. Exam Data for Last 24 hours Vital signs and Labs for Last 24 Hours: Temp Pulse Resp BP Pulse Ox O2 Del Method O2 Flow Rate 97.7 F 97 H 22 111/61 98 Room Air 2 02/09/25 20:00 02/09/25 20:00 02/09/25 20:00 02/09/25 20:00 02/09/25 20:00 02/09/25 20:42 02/06/25 22:00 Laboratory Results - last 24 hr 02/09/25 06:00: POC Glucose 254 H 02/09/25 08:47: WBC 11.0 H, RBC 3.60 L, Hgb 9.7 L, Hct 30.4 L, MCV 84.4, MCH 26.9 L, MCHC 31.9, RDW 15.3, Plt Count 266, MPV 9.3, Neut % (Auto) 74.1, Lymph % (Auto) 8.4 L, [place] % (Auto) 13.8 H, Eos % (Auto) 2.9, Baso % (Auto) 0.3, Neut # (Auto) 8.1 H, Lymph # (Auto) 0.9, [place] # (Auto) 1.5 H, Eos # (Auto) 0.3, Baso # (Auto) 0.0, Sodium 127 L, Potassium 4.1, Chloride 91 L, Carbon Dioxide 32 H, Anion Gap 8.1, BUN 69 H, Creatinine 3.10 H, Estimated Creat Clear 22, Estimated GFR 20 L, Est GFR ( Amer) 24 L, Glucose 266 H, Calcium 8.6, Magnesium 2.0 D, Total Bilirubin 0.8, AST 51 D, ALT 288 H D, Alkaline Phosphatase 125, Total Protein 6.6, Albumin 3.5, Globulin 3.1, Albumin/Globulin Ratio 1.1 02/09/25 11:11: POC Glucose 298 H 02/09/25 16:37: POC Glucose 233 H 02/09/25 20:10: POC Glucose 281 H I & O for Last 24 hours: Intake & Output 02/06/25 02/07/25 02/08/2502/09/25 23:59 23:59 23:59 23:59 Intake Total 973.466 / 020.041 6573.094 / 1206.094 745 / 745 1075.746 / 1075.746 Output Total 3300 / 3300 1725 / 1725 1350 / 1350 1025 / 1025 Balance -2326.534 / -2326.534 -518.906 / -518.906 -605 / -605 50.746 / 50.746 Weight 80.3 kg 80.3 kg 72.9 kg 72.9 kg Microbiology Reports for the Last 24 Hours: Microbiology 02/08/25 04:16 Urine,Clean Catch Urine Culture - Preliminary Constitutional Constitutional: no acute distress and average body habitus *Routine HEENT Exam Head: Present normocephalic and atraumatic ENT: Present mucous membranes moist *Routine Neck Exam Neck: Present supple, full ROM and normal carotid upstroke; Absent JVD, carotid bruit or lymphadenopathy *Routine Respiratory Exam Respiratory: Present CTA bilaterally, normal respiratory effort, able to speak in complete sentences and symmetric chest movement *Routine Cardiovascular Exam Cardiovascular: Present RRR, Normal S1, Normal S2 and tachycardia; Absent murmur or gallop *Routine Abdominal Exam Abdominal: Present soft and normoactive bowel sounds; Absent tenderness, distended or organomegaly *Routine Extremities Exam Extremities: Present full ROM, pulses intact and normal capillary refill; Absent cyanosis, clubbing or edema *Routine Skin Exam Skin: Present intact and warm; Absent erythema *Routine Neurological Exam Neurological: Present alert, oriented X3 and CN II-XII intact; Absent sensory deficit or motor deficit Routine Psychiatric Exam Psychiatric: Present normal affect Assessment and Plan *Assessment and plan (1) Cardiogenic shock: Status: Acute Category: Medical Code(s): R57.0 - Cardiogenic shock (2) Acute on chronic HFrEF (heart failure with reduced ejection fraction): Status: Acute Category: Medical Code(s): I50.23 - Acute on chronic systolic (congestive) heart failure (3) Atrial fibrillation with RVR: Status: Acute Category: Medical Code(s): I48.91 - Unspecified atrial fibrillation (4) Ischemic cardiomyopathy: Status: Acute Category: Medical Code(s): I25.5 - Ischemic cardiomyopathy (5) Hypothyroidism (acquired): Status: Acute Category: Medical Code(s): E03.9 - Hypothyroidism, unspecified (6) DM type 2 (diabetes mellitus, type 2): Status: Acute Qualifiers: Diabetes mellitus fpc insulin use: without target aircraft technician use Diabetes mellitus complication status: with other specified complication Qualified Code(s): E11.69 - Type 2 diabetes mellitus with other specified complication Category: Medical Code(s): E11.9 - Type 2 diabetes mellitus without complications (7) Pulmonary HTN: Status: Acute Category: Medical Code(s): I27.20 - Pulmonary hypertension, unspecified (8) CKD stage 4 due to type 2 diabetes mellitus: Status: Acute Category: Medical Code(s): E11.22 - Type 2 diabetes mellitus with diabetic chronic kidney disease; N18.4 - Chronic kidney disease, stage 4 (severe) (9) Coronary artery disease: Status: Acute Qualifiers: Coronary Disease-Associated Artery/Lesion type: bypass graft [place] vs. transplanted heart: [place] heart Associated angina: with other forms of angina Qualified Code(s): I25.708 - Atherosclerosis of coronary artery bypass graft(s), unspecified, with other forms of angina pectoris Category: Medical Code(s): I25.10 - Atherosclerotic heart disease of [place] coronary artery without angina pectoris (10) Presence of stent in coronary artery: Status: Acute Category: Surgical Code(s): Z95.5 - Presence of coronary angioplasty implant and graft (11) Hx of CABG: Status: Acute Category: Surgical Code(s): Z95.1 - Presence of aortocoronary bypass graft (12) Shock liver: Status: Acute Category: Medical Code(s): K72.00 - Acute and subacute hepatic failure without coma Plan Zackary Carrasco is a 74-year-old male with a medical history significant for A-fib, HFrEF, CAD/CABG, NSTEMI, CKD stage IV, hypertension, type 2 diabetes, BPH, GERD who presents with progressive shortness of breath, leg swelling. Patient was recently admitted to our facility last month for similar symptoms. He states he has been adherent to his medications. In the ED, patient's heart rate 120s/130s with A-fib. Cardioversion performed morning of 02/01. Tolerated well. Shock appears to be stable with adequate management. # Cardiogenic shock #Acute on chronic HFrEF #A-flutter RVR, status post cardioversion, now in sinus rhythm ? Presented with progressive shortness of breath, volume overload. BNP 15,400. Patient states he has been adherent to his medications, though he lives alone and family questions this. ? Patient initially treated with amiodarone drip for A-fib RVR, was discontinued. Attempts to resume beta-cholo showed clinical signs of cardiogenic shock. Patient was cardioverted on 02/01 with good results. Developed decompensation state over the next 12 hours. - Continue p.o. amiodarone 400 mg 3 times a day - Discontinued milrinone today, had discontinued nitroprusside. - Bumex IV 2mg BIDL - -22 liters since admission, -1.5 L in the past 24 hours. - Discontinue heparin drip, initiate Xarelto 15 mg. - Repeat echocardiogram obtained 02/02 showing EF of 10 to 15%. Ejection fraction 30% 1 month ago -Given LIANE/ATN, will hold hydralazine, Jardiance, spironolactone #UTI #Hematuria ? Continue ceftriaxone. ? Follow-up urine culture. - Hemoglobin 9.7, continue monitor. Transaminitis in the setting of cardiogenic shock and amiodarone therapy - Liver enzymes showing improvement today, bilirubin 1.1, AST 116, ALT 600, alk phos 190. - Hold statin in setting of elevated liver enzymes #LIANE on CKD stage IV #Hyperkalemia - Bilateral renals were normal on cath 12/2024 - Baseline creatinine 2.2-2.4. Creatinine 3.1, today. - Caution with nephrotoxins, renally dose medication - Repeat CBC, CMP, magnesium ordered for the morning #CAD s/p CABG 2017, LUKE 2021: Continue aspirin 81 mg, clopidogrel 75 mg; holding atorvastatin 80 mg. #Hypothyroidism: TSH subtherapeutic 11.8. Continue home levothyroxine 88 mcg. #Type 2 diabetes: Continue insulin glargine decreased to 10 units tonight. Holding Jardiance. Continue low-dose sliding scale insulin with fingersticks ACHS. #BPH: Continue home finasteride 5 mg. #GERD: Continue home PPI. DNR/DNI Xarelto 15 mg daily Diabetic diet ICU/Critical care attestation This patient is critically ill with 35 minutes devoted solely to this patient managing life/organ supporting interventions that required physician assessment. This includes time spent making adjustments in ventilator settings, IV fluid administration, titration of pressors, adjustments of medications, discussion of patient with consultants and other care providers as well as updating patient and/or family (if patient by virtue of his/her condition is unable to participate in decision making). This does not include time spent performing separately billed procedures. Time is not concurrent with that of other providers.
[2025-02-09] MEDS: OXYCODONE 5MG IMMEDIATE RELEASE TABLET 10 MG PO ×2 (21:34)
[2025-02-10] VITALS (8 sets, daily range): BP systolic 98–156; BP diastolic 47–89; PULSE 79–90; RESP 15–25; TEMP 36.5–36.6; O2SAT 91–100; BMI 23.6
[2025-02-10 05:46] LABS: POC Glucose,Bedside 178 (70-110)
[2025-02-10] MEDS: humaLOG 100 UNITS/ML 10ML VIAL (SSI) SUBCUT ×2 (06:27→11:52)
[2025-02-10] MEDS: LEVOTHYROXINE 88MCG (0.088MG) TAB 88 MCG PO (06:28)
--- NOTE | 2025-02-10 06:35 | PC.NURSE ---
urine was already charted under licensed nurse check.
[2025-02-10 08:24] LABS: Basophils % 0.3 % (0.1-2.0); Eosinophils # 0.4 Kmm3 (0.0-0.4); Eosinophils % 3.2 % (0.1-12.0); Hematocrit 30.7 % (42.0-52.0); Immature Granulocytes # 0.06 10^3uL; Immature Granulocytes % 0.5 %; Lymphocytes # 0.9 K/mm3 (0.7-4.5); Lymphocytes % 8.1 % (10-50); Mean Corpuscular HGB Conc 32.6 g/dL (31.8-35.4); Mean Corpuscular Hemoglobin 27.3 pg (27.0-31.2); Mean Corpuscular Volume 83.9 fl (80-94); Mean Platelet Volume 9.3 fl (7.4-10.4); Monocytes # 1.5 K/mm3 (0.1-1.0); Monocytes % 12.6 % (1.7-9.3); Neutrophils # 8.8 K/mm3 (1.8-7.8); Neutrophils % 75.3 % (37.0-80.0); Nucleated Red Blood Cells # 0 10^3/uL; Nucleated Red Blood Cells % 0 %; Platelet Count 267 K/mm3 (142-424); Red Blood Count 3.66 M/mm3 (4.60-6.20); Red Cell Distribution Width 15.4 % (11.5-17.5); Red Cell Distribution Width-SD 46.5 fL; White Blood Count 11.7 K/mm3 (4.8-10.8)
[2025-02-10 08:33] LABS: Alanine Aminotransferase 205 U/L (12-78); Albumin Level 3.5 g/dl (3.5-5.0); Albumin/Globulin Ratio 1.1 (1.1-1.8); Alkaline Phosphatase 114 U/L (38-126); Anion Gap 5.8 mEq/L (5-15); Aspartate Amino Transferase 44 U/L (17-59); Bilirubin,Total 0.9 mg/dl (0.2-1.3); Blood Urea Nitrogen 65 mg/dl (9-20); Calcium 8.9 mg/dl (8.4-10.2); Carbon Dioxide 33 mmol/L (22.0-30.0); Chloride 92 mmol/L (98-107); Creatinine Clearance Estimated 25 mL/min (50-200); Estimated Glomerular Filt Rate 23 ml/min (>60); GFR (African American) 28 ML/MIN (>60); Globulin 3.3 g/dL (1.3-3.2); Glucose 212 mg/dl (74-100); Magnesium 2.1 mg/dl (1.6-2.3); Potassium 3.8 mmoL/L (3.5-5.1); Sodium 127 mmol/L (136-145); Total Protein,Serum 6.8 g/dl (6.3-8.2)
[2025-02-10] MEDS: AMIODARONE 200MG TABLET 400 MG PO (09:09)
[2025-02-10] MEDS: CEFTRIAXONE 1 GM 1 GM in 0.9 % SODIUM CHLORIDE 50 ML IV (09:09)
[2025-02-10] MEDS: CLOPIDOGREL 75MG TAB 75 MG PO (09:09)
[2025-02-10] MEDS: BUMETANIDE 1MG/4ML VIAL 2 MG IV (09:09)
[2025-02-10] MEDS: ISOSORBIDE DINITRATE 20 MG TABLET PO ×2 (09:11→14:06)
[2025-02-10] MEDS: HYDRALAZINE 10MG TABLET 10 MG PO ×2 (09:11→14:06)
--- NOTE | 2025-02-10 10:55 | EXP.CARD.PN ---
Subjective Subjective Date: 02/10/25 Time: 09:30 Principal diagnosis: HFrEF, CKD Interval history: The patient was admitted to the hospital for cardiogenic shock. His ejection fraction is 10 to 15%. He is off all of his drips at this time. He is still getting IV Bumex this morning. He denies any chest pain or pressure. He denies any shortness of breath or edema. He denies any fever, chills, nausea, vomiting or diarrhea. He states that he feels really good. His vital signs are stable. Exam Data for Last 24 hours Vital signs and Labs for Last 24 Hours: Temp Pulse Resp BP Pulse Ox O2 Del Method O2 Flow Rate 97.7 F 88 18 122/73 100 Room Air 2 02/10/25 08:00 02/10/25 10:00 02/10/25 10:00 02/10/25 10:00 02/10/25 10:00 02/10/25 10:00 02/06/25 22:00 Laboratory Results - last 24 hr 02/09/25 11:11: POC Glucose 298 H 02/09/25 16:37: POC Glucose 233 H 02/09/25 20:10: POC Glucose 281 H 02/10/25 05:38: POC Glucose 178 H 02/10/25 08:15: WBC 11.7 H, RBC 3.66 L, Hgb 10.0 L, Hct 30.7 L, MCV 83.9, MCH 27.3, MCHC 32.6, RDW 15.4, Plt Count 267, MPV 9.3, Neut % (Auto) 75.3, Lymph % (Auto) 8.1 L, [place] % (Auto) 12.6 H, Eos % (Auto) 3.2, Baso % (Auto) 0.3, Neut # (Auto) 8.8 H, Lymph # (Auto) 0.9, [place] # (Auto) 1.5 H, Eos # (Auto) 0.4, Baso # (Auto) 0.0, Sodium 127 L, Potassium 3.8, Chloride 92 L, Carbon Dioxide 33 H, Anion Gap 5.8, BUN 65 H, Creatinine 2.70 H, Estimated Creat Clear 25, Estimated GFR 23 L, Est GFR ( Amer) 28 L, Glucose 212 H D, Calcium 8.9, Magnesium 2.1, Total Bilirubin 0.9, AST 44, ALT 205 H D, Alkaline Phosphatase 114, Total Protein 6.8, Albumin 3.5, Globulin 3.3 H, Albumin/Globulin Ratio 1.1 I & O for Last 24 hours: Intake & Output 02/07/25 02/08/25 02/09/25 02/10/25 23:59 23:59 23:59 23:59 Intake Total 1206.094 / 1206.094 745 / 745 1075.746 / 1075.746 270 / 270 Output Total 1725 / 1725 1350 / 1350 1025 / 1025 976 / 976 Balance -518.906 / -518.906 -605 / -605 50.746 / 50.746 -706 / -706 Weight 177 lb 0.499 oz 160 lb 11.472 oz 160 lb 11.472 oz 159 lb 2.78 oz Microbiology Reports for the Last 24 Hours: Microbiology 02/08/25 04:16 Urine,Clean Catch Urine Culture - Preliminary Constitutional Constitutional: no acute distress and average body habitus *Routine HEENT Exam Head: Present normocephalic and atraumatic ENT: Present mucous membranes moist *Routine Neck Exam Neck: Present supple, full ROM and normal carotid upstroke; Absent JVD, carotid bruit or lymphadenopathy *Routine Respiratory Exam Respiratory: Present CTA bilaterally, normal respiratory effort, able to speak in complete sentences and symmetric chest movement *Routine Cardiovascular Exam Cardiovascular: Present RRR, Normal S1, Normal S2 and tachycardia; Absent murmur or gallop *Routine Abdominal Exam Abdominal: Present soft and normoactive bowel sounds; Absent tenderness, distended or organomegaly *Routine Extremities Exam Extremities: Present full ROM, pulses intact and normal capillary refill; Absent cyanosis, clubbing or edema *Routine Skin Exam Skin: Present intact and warm; Absent erythema *Routine Neurological Exam Neurological: Present alert, oriented X3 and CN II-XII intact; Absent sensory deficit or motor deficit Routine Psychiatric Exam Psychiatric: Present normal affect Progress Note: A&P Assessment and plan (1) Cardiogenic shock: Status: Acute (2) Acute on chronic HFrEF (heart failure with reduced ejection fraction): Status: Acute (3) Atrial fibrillation with RVR: Status: Acute (4) Ischemic cardiomyopathy: Status: Acute (5) Coronary artery disease: Status: Acute (6) Hypothyroidism (acquired): Status: Acute (7) DM type 2 (diabetes mellitus, type 2): Status: Acute (8) Pulmonary HTN: Status: Acute (9) CKD stage 4 due to type 2 diabetes mellitus: Status: Acute (10) Presence of stent in coronary artery: Status: Acute (11) Hx of CABG: Status: Acute (12) Shock liver: Status: Acute Assessment and Plan Assessment and Plan for All Diagnoses:: Plan: 1. The patient was admitted to the hospital with cardiogenic shock and acute on chronic HFrEF. His EF is 10 to 15%. The patient's milrinone drip was stopped yesterday. He is now off of all continuous drips. He remains on Bumex 2 mg IV twice daily for diuresis. Will stop IV Bumex and start Bumex 2 mg p.o. twice daily. 2. Continue Isordil. 3. Increase hydralazine to 20 mg p.o. 3 times daily. Hold hydralazine if systolic blood pressure is less than 100. 4. His creatinine is 2.7 today and improving. His baseline creatinine is 2.2-2.4. Renal function is too high to add spironolactone or DEVI/ARB/Arni. 5. No beta-cholo at this time due to his cardiogenic shock. 6. Will consider Jardiance/Farxiga on an outpatient basis. 7. His blood pressure is acceptable at this time. 8. His LDL goal is less than 55. His LDL is 45. No statin at this time due to his elevated liver enzymes which are improving. 9. Paroxysmal atrial fibrillation is sinus rhythm. He is on amiodarone 400 mg twice daily. He will need to be on 400 mg twice daily for 2 weeks and then he will decrease down to 200 mg for 2 weeks and then 200 mg daily thereafter. 10. He is on Xarelto for long-term anticoagulation due to PAFib. 11. Coronary artery disease is present. This is likely stable. Continue Plavix. 12. His heart rate is now normal. 13. No further recommendations at this time from a cardiac standpoint. The patient can be discharged from a cardiac standpoint today. He will need to follow-up next week on Friday with Dr. Locke in outpatient cardiology clinic. 14. The patient will need to be discharged on the following cardiac medications: Bumex 2 mg p.o. twice daily, Plavix 75 mg daily, hydralazine 20 mg 3 times daily (hold for systolic blood pressure less than 100), isosorbide dinitrate 20 mg 3 times daily, Xarelto 15 mg p.o. nightly. 15. The patient does have severe LV dysfunction with an ejection fraction at 10 to 15%. He will need his LifeVest in place prior to discharge home as he is at increased risk for sudden cardiac due to his severe LV dysfunction. Thank you for the opportunity to help participate in the care of this patient. All recommendations and orders are per Dr. Lees.
[2025-02-10 11:26] LABS: POC Glucose,Bedside 374 (70-110)
[2025-02-10] MEDS: ACETAMINOPHEN 325MG TAB 650 MG PO (13:03)
[2025-02-10] MEDS: POLYETHYLENE GLYCOL 3350 17 GM PACKET PO (13:04)
--- NOTE | 2025-02-10 13:09 | EXP.DC.SUM ---
General Admission date:: 01/24/25 Hospital Course Hospital Course Hospital Course: Zackary Carrasco is a 74-year-old male with a medical history significant for A-fib, HFrEF, CAD/CABG, NSTEMI, CKD stage IV, hypertension, type 2 diabetes, BPH, GERD who presents with progressive shortness of breath, leg swelling. Patient was recently admitted to our facility last month for similar symptoms. He states he has been adherent to his medications. In the ED, patient's heart rate 120s/130s with A-fib. Cardioversion performed morning of 02/01. Tolerated well. Shock appears to be stable with adequate management. #Cardiogenic shock #Acute on chronic HFrEF #A-flutter RVR, status post cardioversion, now in sinus rhythm ? Presented with progressive shortness of breath, volume overload. BNP 15,400. Patient states he has been adherent to his medications, though he lives alone and family questions this. - Repeat echocardiogram obtained 02/02 showing EF of 10 to 15%. Ejection fraction 30% 1 month ago. ? Patient initially treated with amiodarone drip for A-fib RVR, was discontinued. Attempts to resume beta-cholo showed clinical signs of cardiogenic shock. Patient was cardioverted on 02/01 with good results. Developed decompensation state over the next day. Discontinued milrinone, nitroprusside drips. - Started amiodarone 400 mg 2 times a day. He will need to be on 400 mg twice daily for 2 weeks and then he will decrease down to 200 mg for 2 weeks and then 200 mg daily thereafter. Patient will follow-up with cardiology for assistance of this. ? Started Bumex 2 mg twice daily, Xarelto 15 mg. - Given LIANE will hold Jardiance, spironolactone. ? Will follow-up with cardiology within 1 week. #UTI ? Urine culture showing yeast. Discharged with fluconazole 200 mg for 3 more days. Transaminitis in the setting of cardiogenic shock and amiodarone therapy - Showing significant improvement, nearly normalized. ? Hold statin until follow-up with cardiology. #LIANE on CKD stage IV #Hyperkalemia - Bilateral renals were normal on cath 12/2024 - Baseline creatinine 2.2-2.4. Creatinine 2.7, today. In the setting of volume overload. #CAD s/p CABG 2017, LUKE 2021: Continue aspirin 81 mg, clopidogrel 75 mg; holding atorvastatin 80 mg. #Hypothyroidism: TSH subtherapeutic 11.8. Continue home levothyroxine 88 mcg. #Type 2 diabetes: Hemoglobin A1c 9.2%. Lantus 20 units daily. #BPH: Continue home finasteride 5 mg. #GERD: Continue home PPI. Total time spent on discharge: 33 minutes on chart review, counseling, documentation, and direct care with patient. Exam Data for Last 24 hours Vital signs and Labs for Last 24 Hours: Temp Pulse Resp BP Pulse Ox O2 Del Method O2 Flow Rate 97.7 F 85 20 125/65 100 Room Air 2 02/10/25 12:00 02/10/25 12:00 02/10/25 12:00 02/10/25 12:00 02/10/25 12:00 02/10/25 12:00 02/06/25 22:00 Laboratory Results - last 24 hr 02/09/25 16:37: POC Glucose 233 H 02/09/25 20:10: POC Glucose 281 H 02/10/25 05:38: POC Glucose 178 H 02/10/25 08:15: WBC 11.7 H, RBC 3.66 L, Hgb 10.0 L, Hct 30.7 L, MCV 83.9, MCH 27.3, MCHC 32.6, RDW 15.4, Plt Count 267, MPV 9.3, Neut % (Auto) 75.3, Lymph % (Auto) 8.1 L, [place] % (Auto) 12.6 H, Eos % (Auto) 3.2, Baso % (Auto) 0.3, Neut # (Auto) 8.8 H, Lymph # (Auto) 0.9, [place] # (Auto) 1.5 H, Eos # (Auto) 0.4, Baso # (Auto) 0.0, Sodium 127 L, Potassium 3.8, Chloride 92 L, Carbon Dioxide 33 H, Anion Gap 5.8, BUN 65 H, Creatinine 2.70 H, Estimated Creat Clear 25, Estimated GFR 23 L, Est GFR ( Amer) 28 L, Glucose 212 H D, Calcium 8.9, Magnesium 2.1, Total Bilirubin 0.9, AST 44, ALT 205 H D, Alkaline Phosphatase 114, Total Protein 6.8, Albumin 3.5, Globulin 3.3 H, Albumin/Globulin Ratio 1.1 02/10/25 11:13: POC Glucose 374 H* I & O for Last 24 hours: Intake & Output 02/07/25 02/08/25 02/09/25 02/10/25 23:59 23:59 23:59 23:59 Intake Total 1206.094 / 1206.094 745 / 745 1075.746 / 1075.746 270 / 270 Output Total 1725 / 1725 1350 / 1350 1025 / 1025 1376 / 1376 Balance -518.906 / -518.906 -605 / -605 50.746 / 50.746 -1106 / -1106 Weight 80.3 kg 72.9 kg 72.9 kg 72.2 kg Microbiology Reports for the Last 24 Hours: Microbiology 02/08/25 04:16 Urine,Clean Catch Urine Culture - Final Yeast Constitutional Constitutional: no acute distress and average body habitus *Routine HEENT Exam Head: Present normocephalic and atraumatic ENT: Present mucous membranes moist *Routine Neck Exam Neck: Present supple, full ROM and normal carotid upstroke; Absent JVD, carotid bruit or lymphadenopathy *Routine Respiratory Exam Respiratory: Present CTA bilaterally, normal respiratory effort, able to speak in complete sentences and symmetric chest movement *Routine Cardiovascular Exam Cardiovascular: Present RRR, Normal S1, Normal S2 and tachycardia; Absent murmur or gallop *Routine Abdominal Exam Abdominal: Present soft and normoactive bowel sounds; Absent tenderness, distended or organomegaly *Routine Extremities Exam Extremities: Present full ROM, pulses intact and normal capillary refill; Absent cyanosis, clubbing or edema *Routine Skin Exam Skin: Present intact and warm; Absent erythema *Routine Neurological Exam Neurological: Present alert, oriented X3 and CN II-XII intact; Absent sensory deficit or motor deficit Routine Psychiatric Exam Psychiatric: Present normal affect Results Data Completed and Pending Labs on day of discharge: Labs from last 24 hours 02/10/25 02/10/25 02/10/25 11:13 08:15 05:38 WBC 11.7 H RBC 3.66 L Hgb 10.0 L Hct 30.7 L MCV 83.9 MCH 27.3 MCHC 32.6 RDW 15.4 Plt Count 267 MPV 9.3 Neut % (Auto) 75.3 Lymph % (Auto) 8.1 L [place] % (Auto) 12.6 H Eos % (Auto) 3.2 Baso % (Auto) 0.3 Neut # (Auto) 8.8 H Lymph # (Auto) 0.9 [place] # (Auto) 1.5 H Eos # (Auto) 0.4 Baso # (Auto) 0.0 Sodium 127 L Potassium 3.8 Chloride 92 L Carbon Dioxide 33 H Anion Gap 5.8 BUN 65 H Creatinine 2.70 H Estimated Creat Clear 25 Estimated GFR 23 L Est GFR ( Amer) 28 L Glucose 212 H D POC Glucose 374 H* 178 H Calcium 8.9 Magnesium 2.1 Total Bilirubin 0.9 AST 44 ALT 205 H D Alkaline Phosphatase 114 Total Protein 6.8 Albumin 3.5 Globulin 3.3 H Albumin/Globulin Ratio 1.1 02/09/25 02/09/25 20:10 16:37 WBC RBC Hgb Hct MCV MCH MCHC RDW Plt Count MPV Neut % (Auto) Lymph % (Auto) [place] % (Auto) Eos % (Auto) Baso % (Auto) Neut # (Auto) Lymph # (Auto) [place] # (Auto) Eos # (Auto) Baso # (Auto) Sodium Potassium Chloride Carbon Dioxide Anion Gap BUN Creatinine Estimated Creat Clear Estimated GFR Est GFR ( Amer) Glucose POC Glucose 281 H 233 H Calcium Magnesium Total Bilirubin AST ALT Alkaline Phosphatase Total Protein Albumin Globulin Albumin/Globulin Ratio DS: Diagnosis Discharge Diagnosis (1) Cardiogenic shock: Status: Acute Code(s): R57.0 - Cardiogenic shock (2) Acute on chronic HFrEF (heart failure with reduced ejection fraction): Status: Acute Code(s): I50.23 - Acute on chronic systolic (congestive) heart failure (3) Atrial fibrillation with RVR: Status: Acute Code(s): I48.91 - Unspecified atrial fibrillation (4) Ischemic cardiomyopathy: Status: Acute Code(s): I25.5 - Ischemic cardiomyopathy (5) Coronary artery disease: Status: Acute Code(s): I25.10 - Atherosclerotic heart disease of robinson coronary artery without angina pectoris Qualifiers: Associated angina: with other forms of angina Coronary Disease-Associated Artery/Lesion type: bypass graft [place] vs. transplanted heart: robinson heart Qualified Code(s): I25.708 - Atherosclerosis of coronary artery bypass graft(s), unspecified, with other forms of angina pectoris (6) Hypothyroidism (acquired): Status: Acute Code(s): E03.9 - Hypothyroidism, unspecified (7) DM type 2 (diabetes mellitus, type 2): Status: Acute Code(s): E11.9 - Type 2 diabetes mellitus without complications Qualifiers: Diabetes mellitus complication status: with other specified complication Diabetes mellitus penitentiary insulin use: without penitentiary use Qualified Code(s): E11.69 - Type 2 diabetes mellitus with other specified complication (8) Pulmonary HTN: Status: Acute Code(s): I27.20 - Pulmonary hypertension, unspecified (9) CKD stage 4 due to type 2 diabetes mellitus: Status: Acute Code(s): E11.22 - Type 2 diabetes mellitus with diabetic chronic kidney disease; N18.4 - Chronic kidney disease, stage 4 (severe) (10) Presence of stent in coronary artery: Status: Acute Code(s): Z95.5 - Presence of coronary angioplasty implant and graft (11) Hx of CABG: Status: Acute Code(s): Z95.1 - Presence of aortocoronary bypass graft (12) Shock liver: Status: Acute Code(s): K72.00 - Acute and subacute hepatic failure without coma Meds Home Medications and Allergies Home Medications ?Medication ?Instructions ?Recorded ?Confirmed ?Type aspirin 81 mg tablet,delayed 81 mg PO DAILY #90 tabs 12/08/24 01/24/25 Rx release (Adult Low Dose Aspirin) cholecalciferol (vitamin D3) 1,250 1,250 mcg PO WEEKLY 90 days #13 12/08/24 01/24/25 Rx mcg (50,000 unit) oral wafer wafers ferrous sulfate 325 mg (65 mg 325 mg PO DAILY #90 tabs 12/08/24 01/24/25 Rx iron) tablet levothyroxine 88 mcg tablet 88 mcg PO DAILY 12/22/24 01/24/25 History melatonin 3 mg capsule 3 mg PO HS PRN Sleep 12/22/24 01/24/25 History atorvastatin 40 mg tablet 40 mg PO HS 12/23/24 01/24/25 History clopidogrel 75 mg tablet 75 mg PO DAILY 12/23/24 01/24/25 History omeprazole 40 mg capsule,delayed 40 mg PO DAILY 12/23/24 01/24/25 History release amiodarone 200 mg tablet 400 mg (2 x 200 mg) PO BID 30 days 02/10/25 Rx #120 tabs bumetanide 2 mg tablet 2 mg PO BID 30 days #60 tabs 02/10/25 Rx fluconazole 200 mg tablet 200 mg PO DAILY 3 days #3 tabs 02/10/25 Rx hydralazine 10 mg tablet 20 mg (2 x 10 mg) PO TID 30 days 02/10/25 Rx #180 tabs insulin glargine 100 unit/mL 20 unit (0.2 mL) SQ HS 30 days #6 02/10/25 Rx subcutaneous solution (Lantus mL U-100 Insulin) isosorbide dinitrate 20 mg tablet 20 mg PO TID 30 days #90 tabs 02/10/25 Rx polyethylene glycol 3350 17 gram 17 g PO DAILY 30 days #30 ea 02/10/25 Rx oral powder packet (HealthyLax) rivaroxaban 15 mg tablet (Xarelto) 15 mg PO QPMWITHMEAL 30 days #30 02/10/25 Rx tabs New Prescriptions to Start Prescriptions: amiodarone Chloe,Joel bumetanide Chloe,Joel fluconazole Chloe,Joel hydralazine Chloe,Joel insulin glargine [Lantus U-100 Insulin] Chloe,Joel isosorbide dinitrate Chloe,Joel polyethylene glycol 3350 [HealthyLax] Chloe,Joel rivaroxaban [Xarelto] Chloe,Joel Allergies Allergy/AdvReac Type Severity Reaction Status Date / Time amoxicillin Allergy Rash Verified 12/31/24 11:39 Penicillins Allergy Rash Verified 12/31/24 11:39 Discharge Plan Disposition Patient Disposition: Xfer SNF Condition: Fair Discharge Order Discharge Orders: Discharge Order (Routine); Ordered 02/10/25 Ordered By: Joel Corona Follow up Plan Follow up with: Marielos Amaral APRN [Primary Care Provider] - 02/17/25 2:30 pm rGegory Worthington PA [Physician Youth Development Professional] - 02/17/25 2:30 pm Prescriptions/Medication Reconciliation: New insulin glargine [Lantus U-100 Insulin] 100 unit/mL Solution 20 unit SQ HS 30 Days Qty: 6 0RF amiodarone 200 mg Tablet 400 mg PO BID 30 Days Qty: 120 0RF polyethylene glycol 3350 [HealthyLax] 17 gram Powder In Packet 17 g PO DAILY 30 Days Qty: 30 0RF isosorbide dinitrate 20 mg Tablet 20 mg PO TID 30 Days Qty: 90 0RF Xarelto 15 mg Tablet 15 mg PO QPMWITHMEAL 30 Days Qty: 30 0RF bumetanide 2 mg tablet 2 mg PO BID 30 Days Qty: 60 0RF hydralazine 10 mg tablet 20 mg PO TID 30 Days Qty: 180 0RF Rx Instructions: Hold if SBP < 100. fluconazole 200 mg tablet 200 mg PO DAILY 3 Days Qty: 3 0RF Continued aspirin [Adult Low Dose Aspirin] 81 mg tablet,delayed release (DR/EC) 81 mg PO DAILY Qty: 90 1RF cholecalciferol (vitamin D3) 1,250 mcg (50,000 unit) wafer 1,250 mcg PO WEEKLY 90 Days Qty: 13 2RF ferrous sulfate 325 mg (65 mg iron) tablet 325 mg PO DAILY Qty: 90 0RF levothyroxine 88 mcg tablet 88 mcg PO DAILY melatonin 3 mg capsule 3 mg PO HS PRN (Reason: Sleep) clopidogrel 75 mg tablet 75 mg PO DAILY atorvastatin 40 mg tablet 40 mg PO HS omeprazole 40 mg capsule,delayed release(DR/EC) 40 mg PO DAILY Discontinued insulin lispro 100 unit/mL insulin pen 1 sliding scale dose SQ USEASDIRECTD Qty: 15 3RF Jardiance 10 mg tablet 10 mg PO DAILY Qty: 90 2RF hydralazine 25 mg Tablet 25 mg PO TID 30 Days Qty: 90 0RF isosorbide dinitrate 20 mg tablet 20 mg PO TID bumetanide 0.5 mg tablet 0.5 mg PO DAILY metoprolol succinate 25 mg tablet extended release 24 hr 25 mg PO DAILY Problem Reconciliation Problems Reviewed?: Yes Patient Discharge Instructions Patient Instructions: Transesophageal Echocardiography, DI for Atrial Flutter, Stop Light Heart Failure Print Language: [place] Providers Primary Care Provider: Marielos Amaral Admit Provider: Joel Corona Attending Provider: Joel Corona
== END 2025-02-10 15:30 | DRG 286 ==
LOC: ER 11:53 → 2ND 13:39
PROVIDERS: Internal Medicine; Internal Medicine Adolescent Medicine; Nurse Practitioner; Nurse Practitioner Acute Care; Nurse Practitioner Family; Physician Assistant; Student in an Organized Health Care Education/Training Program; Admitting Provider Student in an Organized Health Care Education/Training Program; Emergency Provider Student in an Organized Health Care Education/Training Program; PCP Nurse Practitioner Family; Visit Provider Student in an Organized Health Care Education/Training Program
PROC: 5A2204Z Restoration of Cardiac Rhythm, Single (ICD-10-PCS; principal; 2025-02-01 11:00)
PROC: 4A023N6 Measurement of Cardiac Sampling and Pressure, Right Heart, Percutaneous Approach (ICD-10-PCS; CPT 93451; principal; 2025-02-03 15:45)
DX: I13.0 Hypertensive heart and chronic kidney disease with heart failure and stage 1 through stage 4 chronic kidney disease, or unspecified chronic kidney disease (principal); I50.23 Acute on chronic systolic (congestive) heart failure; K72.00 Acute and subacute hepatic failure without coma; R57.0 Cardiogenic shock; N18.4 Chronic kidney disease, stage 4 (severe); I48.20 Chronic atrial fibrillation, unspecified; N17.9 Acute kidney failure, unspecified; N39.0 Urinary tract infection, site not specified; E87.1 Hypo-osmolality and hyponatremia; I48.92 Unspecified atrial flutter; G93.49 Other encephalopathy; E87.3 Alkalosis; E87.20 Acidosis, unspecified; E11.22 Type 2 diabetes mellitus with diabetic chronic kidney disease; I25.5 Ischemic cardiomyopathy; I25.708 Atherosclerosis of coronary artery bypass graft(s), unspecified, with other forms of angina pectoris; Z95.1 Presence of aortocoronary bypass graft; Z95.5 Presence of coronary angioplasty implant and graft; E03.9 Hypothyroidism, unspecified; I27.20 Pulmonary hypertension, unspecified; I48.0 Paroxysmal atrial fibrillation; I25.2 Old myocardial infarction; Z87.891 Personal history of nicotine dependence; N40.0 Benign prostatic hyperplasia without lower urinary tract symptoms; K21.9 Gastro-esophageal reflux disease without esophagitis; E87.6 Hypokalemia; R00.0 Tachycardia, unspecified; H91.10 Presbycusis, unspecified ear; H74.09 Tympanosclerosis, unspecified ear; K40.90 Unilateral inguinal hernia, without obstruction or gangrene, not specified as recurrent; R06.02 Shortness of breath; Z91.198 Patient's noncompliance with other medical treatment and regimen for other reason; R11.0 Nausea; R19.7 Diarrhea, unspecified; E78.5 Hyperlipidemia, unspecified; R79.89 Other specified abnormal findings of blood chemistry; Z90.49 Acquired absence of other specified parts of digestive tract; Z86.73 Personal history of transient ischemic attack (TIA), and cerebral infarction without residual deficits; Z91.81 History of falling; Z66 Do not resuscitate; R74.01 Elevation of levels of liver transaminase levels; R06.01 Orthopnea; R31.9 Hematuria, unspecified; D64.9 Anemia, unspecified; I25.118 Atherosclerotic heart disease of native coronary artery with other forms of angina pectoris; I87.8 Other specified disorders of veins; R94.31 Abnormal electrocardiogram [ECG] [EKG]; Z99.89 Dependence on other enabling machines and devices; Z79.82 Long term (current) use of aspirin; Z79.02 Long term (current) use of antithrombotics/antiplatelets; Z79.890 Hormone replacement therapy; Z79.4 Long term (current) use of insulin; Z79.84 Long term (current) use of oral hypoglycemic drugs; Z79.899 Other long term (current) drug therapy; Z88.1 Allergy status to other antibiotic agents; Z88.0 Allergy status to penicillin
CPT/HCPCS: 36415; 71045; 74150; 78582; 80048; 80051; 80053; 80061; 80069; 80076; 81001; 82570; 82803; 82810; 82962; 83605; 83615; 83735; 83880; 84100; 84439; 84443; 84484; 84540; 85007; 85025; 85378; 85610; 85730; 87081; 87086; 87506; 92610; 92960; 93005; 93270; 93306; 93308; 93312; 93319; 93451; 93923; 97163; 97164; 97166; 97530; 99152; 99291; A9540; A9567; C1751; C1894; J0282; J0696; J1171; J1200; J1250; J1611; J1644; J1650; J1938; J1939; J2185; J2250; J2260; J2270; J2405; J2550; J3010; J3475; J7030; J7060; Q9957

== ENCOUNTER 2025-02-23 12:12 | Outpatient (CLI) | payer MEDICARE, SELFPAY ==
[2025-02-23 12:28] LABS: Basophils % 0.4 % (0.1-2.0); Eosinophils # 0.1 Kmm3 (0.0-0.4); Eosinophils % 1.5 % (0.1-12.0); Hematocrit 36.1 % (42.0-52.0); Hemoglobin 11.6 g/dL (14.1-18.0); Immature Granulocytes # 0.04 10^3uL; Immature Granulocytes % 0.4 %; Lymphocytes # 1.7 K/mm3 (0.7-4.5); Lymphocytes % 17.6 % (10-50); Mean Corpuscular HGB Conc 32.1 g/dL (31.8-35.4); Mean Corpuscular Hemoglobin 27.9 pg (27.0-31.2); Mean Corpuscular Volume 86.8 fl (80-94); Mean Platelet Volume 9.5 fl (7.4-10.4); Monocytes % 10.1 % (1.7-9.3); Neutrophils # 6.7 K/mm3 (1.8-7.8); Nucleated Red Blood Cells # 0 10^3/uL; Nucleated Red Blood Cells % 0 %; Platelet Count 321 K/mm3 (142-424); Red Blood Count 4.16 M/mm3 (4.60-6.20); Red Cell Distribution Width 17.1 % (11.5-17.5); Red Cell Distribution Width-SD 53.1 fL; White Blood Count 9.6 K/mm3 (4.8-10.8)
[2025-02-23 13:47] LABS: Free T4 (Free Thyroxine) 1.66 ng/dl (0.78-2.19)
[2025-02-23 14:21] LABS: Albumin Level 4.1 g/dl (3.5-5.0); Alkaline Phosphatase 182 U/L (38-126); Anion Gap 13.3 mEq/L (5-15); Aspartate Amino Transferase 36 U/L (17-59); Bilirubin,Direct 0.3 mg/dl (0.0-0.4); Bilirubin,Indirect 0.7 mg/dL (0.0-0.9); Bilirubin,Unconjugated 0.7 mg/dL (0.0-1.1); Blood Urea Nitrogen 40 mg/dl (9-20); Calcium 9.3 mg/dl (8.4-10.2); Carbon Dioxide 30 mmol/L (22.0-30.0); Chloride 90 mmol/L (98-107); Chol/HDL Ratio 2.7 (1-3.5); Cholesterol 142 mg/dl (140-200); Estimated Glomerular Filt Rate 23 ml/min (>60); GFR (African American) 28 ML/MIN (>60); Glucose 221 mg/dl (74-100); HDL Cholesterol 53 mg/dl (40-60); Magnesium 2.1 mg/dl (1.6-2.3); Potassium 4.3 mmoL/L (3.5-5.1); Sodium 129 mmol/L (136-145); Total Protein,Serum 7.2 g/dl (6.3-8.2); Triglycerides 134 mg/dl (30-150); VLDL Cholesterol 27 mg/dL (0-40)
[2025-02-23 14:30] LABS: NT Pro Brain Natriuretic Pep. 8170 pg/mL (0-125)
[2025-02-23 14:32] LABS: Direct LDL Cholesterol 54.59 mg/dL (100-129)
[2025-02-23 15:55] LABS: Thyroid Stimulating Hormone 5.48 uIU/mL (0.465-4.68)
[2025-02-23 16:58] LABS: Alanine Aminotransferase 37 U/L (12-78)
== END 2025-02-23 23:59 | disposition home or self-care (01) ==
LOC: LAB 12:12
PROVIDERS: PCP Nurse Practitioner Family; Visit Provider Nurse Practitioner Family
DX: I25.5 Ischemic cardiomyopathy (principal); I25.10 Atherosclerotic heart disease of native coronary artery without angina pectoris
CPT/HCPCS: 36415; 80048; 80061; 80076; 83735; 83880; 84439; 84443; 85025

== ENCOUNTER 2025-03-03 01:33 | Emergency (ER) | payer MEDICARE, SELFPAY ==
[2025-03-03 01:43] VITALS: BP 137/72; PULSE 83; RESP 18; TEMP 37.1; O2SAT 100; BMI 25.7
--- NOTE | 2025-03-03 01:43 | HMH.EDGENADL ---
Discharge Plan Disposition Patient Disposition: Home, Self-Care Prescriptions Prescriptions: No Action amiodarone 200 mg tablet 200 mg PO BID 30 Days Qty: 60 1RF cholecalciferol (vitamin D3) 1,250 mcg (50,000 unit) wafer 1,250 mcg PO WEEKLY 90 Days Qty: 13 2RF ferrous sulfate 325 mg (65 mg iron) tablet 325 mg PO DAILY Qty: 90 0RF levothyroxine 88 mcg tablet 88 mcg PO DAILY melatonin 3 mg capsule 3 mg PO HS PRN (Reason: Sleep) atorvastatin 40 mg tablet 40 mg PO HS Qty: 90 3RF clopidogrel 75 mg tablet 75 mg PO DAILY omeprazole 40 mg capsule,delayed release(DR/EC) 40 mg PO DAILY insulin glargine [Lantus U-100 Insulin] 100 unit/mL Solution 20 unit SQ HS 30 Days Qty: 6 0RF polyethylene glycol 3350 [HealthyLax] 17 gram Powder In Packet 17 g PO DAILY 30 Days Qty: 30 0RF isosorbide dinitrate 20 mg Tablet 20 mg PO TID 30 Days Qty: 90 0RF Xarelto 15 mg Tablet 15 mg PO QPMWITHMEAL 30 Days Qty: 30 0RF bumetanide 2 mg tablet 2 mg PO BID 30 Days Qty: 60 0RF hydralazine 10 mg tablet 20 mg PO TID 30 Days Qty: 180 0RF Rx Instructions: Hold if SBP < 100. fluconazole 200 mg tablet 200 mg PO DAILY 3 Days Qty: 3 0RF Referrals Follow up/Referrals: Marielos Amaral APRN [Primary Care Provider, Medical] - See instructions Activity Restrictions/Add. Instructions Additional Instructions/Restrictions: Please up your bumex dosing over the next couple of days and follow up with your PCP. Return to the ER if you develop any new or worsening symptoms or you become concerned for your health. Clinical Impressions Clinical Impression: Congestive heart failure, Edema Print Language Print Language: [place] Discharge ED Provider: Johny Smith General Adult HPI General Stated complaint: heart failure, retaining fluid Time Seen by Provider: 03/03/25 01:35 History of Present Illness HPI narrative: 74-year-old male history of coronary artery disease status post stents, CABG, diabetes, heart failure, A-fib presents for concern about lower extremity edema. He reports that he was in the hospital for heart failure for several weeks and was recently discharged from his nursing facility stay. He denies any chest pain shortness of breath abdominal pain or any other symptoms. He has been taking his medications including Bumex as prescribed. He is here tonight because he noticed a little bit of edema in the bilateral lower legs a couple of hours ago. He has no other symptoms or concerns. Related Data Home Medications ?Medication ?Instructions ?Recorded ?Confirmed levothyroxine 88 mcg tablet 88 mcg PO DAILY 12/22/24 02/23/25 melatonin 3 mg capsule 3 mg PO HS PRN Sleep 12/22/24 02/23/25 clopidogrel 75 mg tablet 75 mg PO DAILY 12/23/24 02/23/25 omeprazole 40 mg capsule,delayed 40 mg PO DAILY 12/23/24 02/23/25 release Previous Rx's ?Medication ?Instructions ?Recorded cholecalciferol (vitamin D3) 1,250 1,250 mcg PO WEEKLY 90 days #13 12/08/24 mcg (50,000 unit) oral wafer wafers ferrous sulfate 325 mg (65 mg 325 mg PO DAILY #90 tabs 12/08/24 iron) tablet bumetanide 2 mg tablet 2 mg PO BID 30 days #60 tabs 02/10/25 fluconazole 200 mg tablet 200 mg PO DAILY 3 days #3 tabs 02/10/25 hydralazine 10 mg tablet 20 mg (2 x 10 mg) PO TID 30 days 02/10/25 #180 tabs insulin glargine 100 unit/mL 20 unit (0.2 mL) SQ HS 30 days #6 02/10/25 subcutaneous solution (Lantus mL U-100 Insulin) isosorbide dinitrate 20 mg tablet 20 mg PO TID 30 days #90 tabs 02/10/25 polyethylene glycol 3350 17 gram 17 g PO DAILY 30 days #30 ea 02/10/25 oral powder packet (HealthyLax) rivaroxaban 15 mg tablet (Xarelto) 15 mg PO QPMWITHMEAL 30 days #30 02/10/25 tabs atorvastatin 40 mg tablet 40 mg PO HS #90 tabs 02/22/25 amiodarone 200 mg tablet 200 mg PO BID 30 days #60 tabs 02/23/25 Allergies Allergy/AdvReac Type Severity Reaction Status Date / Time amoxicillin Allergy Rash Verified 02/23/25 11:35 Penicillins Allergy Rash Verified 02/23/25 11:35 PFSH PFSH Disclaimer: The information contained in this section may have been updated after the patient was seen, as this information can be updated by other users. Medical History (Updated 03/03/25 @ 01:49 by Johny Smith MD) HFrEF (heart failure with reduced ejection fraction) Chest pain Calf cramp Elevated troponin New onset of congestive heart failure CHF (congestive heart failure) Sinus tachycardia Dyspnea B12 deficiency Painful urination Screening for prostate cancer Screening for HIV (human immunodeficiency virus) Encounter for HCV screening test for low risk patient Colon cancer screening Right flank pain Proteinuria Foreign body in left ear Hearing loss LOM (left otitis media) Dermatitis Tympanosclerosis, right ear Left serous otitis media Acute left otitis media Dizziness Otitis media Left elbow fracture Decreased mobility Right hip pain Acute cystitis without hematuria Dysuria Injury of left elbow Injury due to fall Left elbow pain Laceration of lip Inguinal hernia bilateral, non-recurrent Abnormal cardiovascular stress test PAF (paroxysmal atrial fibrillation) CKD stage 4 due to type 2 diabetes mellitus Typical angina Coronary artery disease Stroke Fall Head injury COVID-19 Surgical History History of tonsillectomy History of appendectomy Hx of cholecystectomy History of colonoscopy Presence of stent in coronary artery Hx of CABG Family History Other No significant family history Social History Smoking Status: Never smoker alcohol intake: never substance use type: denies use current occupational status: employed Travel in the last 8 weeks?: Inside the [place] household members: spouse housing: house current occupation: [employer] current occupational exposures/hazards: No caffeine: Yes Other Medical History Have you received the Flu Vaccine for this season: No Have you received the Pneumonia Vaccine: No ROS Obtained: Yes All systems reviewed & no additional complaints except as documented Physical Exam General General appearance: alert and in no apparent distress Head Head exam: atraumatic and normocephalic Eye Eye exam: Present normal appearance, PERRL and EOMI ENT ENT exam: Present normal oropharynx and normal external ear exam Neck Neck exam: Present normal inspection and full ROM Chest Chest inspection: Present normal inspection and symmetric chest wall rise; Absent tenderness Respiratory Respiratory exam: Present normal lung sounds bilaterally; Absent respiratory distress Cardiovascular Cardiovascular exam: Present regular rate and normal rhythm Abdominal Exam Abdominal exam: Present soft; Absent distention, tenderness or guarding Extremities Exam Extremities exam: Present normal inspection and edema (Minimal nonpitting edema to the ankle); Absent joint swelling Back Exam Back exam: Present normal inspection; Absent tenderness Neurological Exam Neurological exam: Present alert and oriented X3; Absent motor sensory deficit Psychiatric Psychiatric exam: Present normal affect and normal mood Skin Skin exam: Present warm, dry and normal color Lymphatic Lymphatic Findings: no adenopathy Medical Decision Making Medical Records Medical records reviewed: Yes I reviewed the patient's medical records. Screening: Per USPSTF and CDC recommendations, given the prevalence of disease in our region, it is our hospital?s policy to screen for HIV and viral Hepatitis for all patients aged 18 and over and those with ongoing risk factors. Roderick Inquiry Pt receiving controlled substance: No Roderick was queried for this patient: No Lab Data Lab results reviewed: Yes I reviewed the patient's lab results. Medical Decision Narrative: 74-year-old male with history of heart failure, diabetes, CAD presents with isolated nonpitting edema to the bilateral lower extremities that he noticed a couple of hours ago. No chest pain abdominal pain shortness of breath or any other symptoms. History was obtained via interactive discussion with patient. On arrival, patient is [afebrile, hemodynamically stable, satting appropriately, alert, oriented x4, GCS 15], moving all extremities spontaneously. Full physical exam performed and significant for minimal nonpitting edema of the foot and ankle, does not extend proximally. Clear lungs bilaterally. Differential includes but is not limited to heart failure, electrolyte derangement, medication noncompliance. Given completely normal vital signs, benign exam and lack of symptoms, I do not think that labs or imaging are indicated at this time. I encouraged patient to take an additional dose of his Bumex over the next couple of days and to follow-up with his PCP. He was agreeable with plan and discharged in stable condition.. Procedures Risk/Benefits of Procedure(s) Were Explained: Yes Critical Care Critical Care Time Critical Care Time: No
[2025-03-03 01:49] VITALS: BP 137/72; PULSE 83; RESP 16; TEMP 36.3; O2SAT 100
--- OUTSIDE RECORDS SUMMARY | 2025-03-03 01:49 | XMS_ITS ---
Author Organization Unknown Plan of Treatment Description Planned Activity Planned Timing - Telephone encounter Dec 05, 2023 Patient Care team information Name Category Status Period Participants - - Proposed period not known - - - period not known - Insurance Providers Payer name Policy type / Covera ge type Policy ID Covered libertarian ID Policy [place] [employer] [place] [employer]
--- OUTSIDE RECORDS SUMMARY | 2025-03-03 01:49 | XMS_ITS | Data Portability ---
Author Organization [facility] and [facility] Address [address] [place] [address] Assessment No assessment recorded. Plan of Treatment Reminders Order Date Submit Date Provider Last Modified By Organization Details Last Modified Time Details Appointments None recorded. Lab urinalysis , dipstick [address], [address], 3 11:41:10 urinalysis , dipstick [address], [address], 3 11:51:05 urinalysis , dipstick [address], [address], 3 21:46:22 Referral None recorded. Procedures bladder scan (PROC) [address], [address], 3 11:41:10 bladder scan (PROC) [address], [address], 11:51:05 bladder scan (PROC) 2022 [email or web address], [address], 21:46:22 Surgeries None recorded. Imaging None recorded. Medication Orders Gemtesa 75 mg tablet 2022 023 [facility], [address], [address], 12:48:35 Patient TargetsNo targets recorded. Patient InstructionsNo instructions recorded. Reason for Referral None Reported. Results Created Date Observation Date Name Description Value Unit Range Abnormal Flag Note LastModifiedBy Organization Detail LastModifiedTime 02/22/2002/21/2023 bladd er scan (PROC ) Calculated Residual Urine: 132 ML Not Available [address], [address], 02/21/2023 11:16:22 02/22/20 23 02/21/2023 urina lysis , dipst ick Leukocytes (reference range) negati ve Not Available [address], [address], 02/21/2023 11:14:55 02/22/20 23 02/21/2023 urina lysis , dipst ick Nitrite (reference range:) negati ve Not Available [address], [address], 02/21/2023 11:14:55 02/22/20 23 02/21/2023 urina lysis , dipst ick Urobilinogen (reference range) 0.2 Not Available [address], [address], 02/21/2023 11:14:55 02/22/20 23 02/21/2023 urina lysis , dipst ick Protein (reference range) 30 Not Available [address], [address], 02/21/2023 11:14:55 02/22/20 23 02/21/2023 urina lysis , dipst ick pH (reference range 5-8.5) 5.5 Not Available [address], [address], 02/21/2023 11:14:55 02/22/20 23 02/21/2023 urina lysis , dipst ick Blood (reference range:) negati ve Not Available [address], [address], 02/21/2023 11:14:55 02/22/20 23 02/21/2023 urina lysis , dipst ick Specific [place] (reference range) 1.020 Not Available [address], [address], 02/21/2023 11:14:55 02/22/2002/21/2023 urina lysis , dipst ick Ketone (reference range) negati ve Not Available [address], [address], 02/21/2023 11:14:55 02/22/20 23 02/21/2023 urina lysis , dipst ick Bilirubin (reference range) negati ve Not Available [address], [address], 02/21/2023 11:14:55 02/22/20 23 02/21/2023 urina lysis , dipst ick Glucose (reference range) negati ve Not Available [address], [address], 02/21/2023 11:14:55 04/04/20 04/04/2023 bladd er scan (PROC ) Calculated Residual Urine: 177 ml Not Available [address], [address], 04/04/2023 11:34:42 04/04/20 23 04/04/2023 urina lysis , dipst ick Leukocytes (reference range) negati ve Not Available [address], [address], 04/04/2023 11:33:50 04/04/20 23 04/04/2023 urina lysis , dipst ick Nitrite (reference range:) negati ve Not Available [address], [address], 04/04/2023 11:33:50 04/04/20 23 04/04/2023 urina lysis , dipst ick Urobilinogen (reference range) 0.2 Not Available [address], [address], 04/04/2023 11:33:50 04/04/20 23 04/04/2023 urina lysis , dipst ick Protein (reference range) 30 Not Available [address], [address], 04/04/2023 11:33:50 04/04/20 23 04/04/2023 urina lysis , dipst ick pH (reference range 5-8.5) 5.0 Not Available [address], [address], 04/04/2023 11:33:50 04/04/20 23 04/04/2023 urina lysis , dipst ick Blood (reference range:) negati ve Not Available [address], [address], 04/04/2023 11:33:50 04/04/20 23 04/04/2023 urina lysis , dipst ick Specific [place] (reference range) 1.010 Not Available [address], [address], 04/04/2023 11:33:50 04/04/20 23 04/04/2023 urina lysis , dipst ick Ketone (reference range) negati ve Not Available [address], [address], 04/04/2023 11:33:50 04/04/20 23 04/04/2023 urina lysis , dipst ick Bilirubin (reference range) negati ve Not Available [address], [address], 04/04/2023 11:33:50 04/04/20 23 04/04/2023 urina lysis , dipst ick Glucose (reference range) negati ve Not Available [address], [address], 04/04/2023 11:33:50 05/28/2005/28/2023 bladd er scan (PROC ) Calculated Residual Urine: 287 ml Not Available [address], [address], 05/28/2023 11:06:32 05/28/2005/28/2023 urina lysis , dipst ick Leukocytes (reference range) negati ve Not Available [address], [address], 05/28/2023 10:58:54 05/28/2005/28/2023 urina lysis , dipst ick Nitrite (reference range:) negati ve Not Available [address], [address], 05/28/2023 10:58:54 05/28/20 23 05/28/2023 urina lysis , dipst ick Urobilinogen (reference range) 0.2 Not Available [address], [address], 05/28/2023 10:58:54 05/28/2005/28/2023 urina lysis , dipst ick Protein (reference range) 100 Not Available [address], [address], 05/28/2023 10:58:54 05/28/2005/28/2023 urina lysis , dipst ick pH (reference range 5-8.5) 5.5 Not Available [address], [address], 05/28/2023 10:58:54 05/28/20 23 05/28/2023 urina lysis , dipst ick Blood (reference range:) small Not Available [address], [address], 05/28/2023 10:58:54 05/28/20 23 05/28/2023 urina lysis , dipst ick Specific [place] (reference range) 1.020 Not Available [address], [address], 05/28/2023 10:58:54 05/28/2005/28/2023 urina lysis , dipst ick Ketone (reference range) negati ve Not Available [address], [address], 05/28/2023 10:58:54 05/28/20 23 05/28/2023 urina lysis , dipst ick Bilirubin (reference range) negati ve Not Available [address], [address], 05/28/2023 10:58:54 05/28/2005/28/2023 urina lysis , dipst ick Glucose (reference range) 1000 Not Available [facility] [address], [place], [address], 05/28/2023 10:58:54 02/22/2012/30/2022 CT, abdom en + pelvi s, w/ contr ast No observ ation record ed. [email or web address] [address] [place], [address], 02/25/2023 09:42:50 Result Notes None recorded. Problems Name Problem SNOMED Code Status Onset Date Resolution Date Notes Provider Name and Address Organization Details Recorded Time Myocardial infarction 19873628 Active 2022 Willie Brennan [place], [place] - [facility] - [facility] & [place] 3 10:24:24 Hypertensiv e disorder 83245626 Active 2022 Willie Brennan null, [place] [facility] - [facility] & [place] 3 10:24:30 Acute stroke 4673494144380 04 Active 2022 Willie [place], [place] - [facility] & [place] 3 10:24:40 Diabetes mellitus 73152450 Active 2022 Willie [place], [place] - [facility] & [place] 3 10:24:44 Environment al allergy 056969082 Active 2022 Willie [place], [place] [facility] [place] 3 10:24:52 Hypercholes terolemia 25073464 Active 2022 Willie Amin null, [place] - [place] - [facility] & [place] 3 10:25:09 Sleep apnea 99848914 Active 2022 Willie Amin null, [place] [facility] [place] 3 10:25:18 Gastroesoph ageal reflux disease 915257954 Active 2022 Willie tanner, [place] - [facility] - [place] & [place] 3 10:25:23 Kidney disease 12259463 Active 2022 Willie tanner, [place] - [facility] - [place] & [place] 3 10:25:33 Arthritis 0861707 Active 2022 Willie tanner, [place] - [facility] - [place] & [place] 3 10:25:39 Problem Notes None recorded. Procedures Surgical History Date Name Laterality Status Provider Name and Address Organization Details Recorded Time 04/04/20 Cystoscopy-Male completed Zackary Chandler Jr, MD [address] [place] [address], [address], [place], [address], [place] Strong [facility] - [place] & [place] 04/04/2023 12:46:16 tonsillectomy completed Willie Strong [facility]NT [facility] & [place] 02/21/2023 10:27:07 esophageal hiatus hernia repair completed Willie Strong [facility] - [place] & [place] 02/21/2023 10:27:23 Appendectomy completed Willie Strong [facility] - [place] & [place] 02/21/2023 10:27:30 cholecystectomy completed Willie Strong [facility]NT [facility] & [place] 02/21/2023 10:27:40 Imaging Results None recorded. Procedure Notes None recorded. Medical Equipment None [...] Updated DateTime 02/21/2023 175.26 cm 27.6 kg/m2 24413.77 g 97.7 [degF] Willie YAN [facility] & [place] 02/21/2023 10:28:19 Date Recorded Body height Provider Name an d Address Organization Details Last Updated DateTime 04/04/2023 175.26 cm Vanessa YAN [facility] & [place] 04/04/2023 10:18:22 Date Recorded Body height Body mass index (BMI) Body weight Body temperature Provider Name and Address Organization Details Last Updated DateTime 04/25/2023 175.26 cm 21.4 kg/m2 75883.89 g 97.7 [degF] Vanessa YAN [facility] & [place] 04/25/2023 09:33:55 Date Recorded Body height Body mass index (BMI) Body weight Body temperature Provider Name and Address Organization Details Last Updated DateTime 05/28/2023 175.26 cm 21.6 kg/m2 66740.49 g 97.8 [degF] Ivone Ch [facility] & [place] 05/28/2023 09:59:16 Social History None recorded. Functional Status Question Answer Note LastModified by Organizat ion Details LastModified Time Do you or have you ever used any other forms of tobacco or nicotine? Yes [email or web address] Information not available 02/21/2023 What is your level of alcohol consumption? Occasional [email or web address] Information not available 02/21/2023 Do you or have you ever used smokeless tobacco? Currently chews tobacco Information not available 02/21/2023 Mental Status None recorded. Family History Relationship Description Onset Age of this Age Resolved Age Notes LastModified by Organization Details LastModified Time Mother Family history unknown dec [email or web address] Not available 2022 10:26:01 Father Malignant neoplastic disease dec [email or web address] Not available 2022 10:26:31 Medical History No medical history recorded. Past Encounters Encounter ID Performer Location Encounter Start Date Encounter Closed Date Diagnosis/Indication Diagnosis SNOMED-CT Code Diagnosis ICD10 Code Diagnosis Note [id number] Zackary Chandler Jr, MD [facility] [address] [address] 02/21/2023 09:47:32 02/21/2023 11:09:32 Overactive urinary bladder 474268739 N32.81 Patient with urge urinary incontinen ce. He wears pull-ups for protection . We discussed treatment options and he was placed on samples of Gemtesa today. He will return in 6 weeks in follow-up. Inguinal pain 319317098 R10.2 patient with right-side d groin pain. Recent CT scan showed a left inguinal hernia. There is a bladder diverticul um which would not cause any discomfort . There is also some nonspecifi c perinephri c stranding without obstructio n or masses. Examinatio n shows no evidence of epididymit is or orchitis. No treatment necessary. [id number] Zackary Chandler Jr, MD [facility] [address] [address] 04/04/2023 10:14:33 04/04/2023 11:33:10 Benign prostatic hyperplasia with outflow obstruction 764320893 N40.1 Patient with history of BPH. His [...] continue the gym Itzel. Overactive urinary bladder 794023682 N32.81 Patient with urge urinary incontinen ce. patient was placed on Gemtesa at his last visit. He states that this has improved his nocturia and urge incontinen ce. We will continue. [id number] Zackary Chandler Jr, MD [facility] [address] [address] 04/25/2023 09:27:42 04/25/2023 10:46:16 Incomplete emptying of urinary bladder due to benign prostatic hypertrophy 3259145249 61956 N40.1 patient with history of urinary retention. [...] in 1 month with a bladder scan. [id number] Zackary Chandler Jr, MD [facility] [address] [address] 05/28/2023 09:48:54 05/28/2023 10:48:00 Benign prostatic hyperplasia with outflow obstruction [id number] N40.1 Patient with history of Urinary retention [...] Recorded Advance Directives Directive None Recorded Payers Insurance Date Sequence Insurance Name Policy Number Policy Garcia Covered Member ID Garcia Member ID Guarantor Name 11/30/2023 1 [place] BC[facility] OF [facility] [employer]IMore[employer] PLUS (MEDICARE REPLACEMENT HMO) [id number] Zackary Carrasco [id number] Zackary Carrasco 02/21/2023 1 [facility] [id number] Zackary Carrasco [id number] Zackary Carrasco Notes Date Note Type Note [...] is on tamsulosin. Zackary Chandler Jr, MD [address] [place] [address], [address], [place], [address], [place] - [place] [facility] 02/21/2023 13:00:48 04/04/2023 text/html patient is a [...] continues on tamsulosin. Zackary Chandler Jr, MD [address] [place] [address], [address], [place], [address], [facility] & [place] 04/04/2023 12:48:44 04/25/2023 text/html Patient is a [...] any problems postoperatively. Zackary Chandler Jr, MD [address] [facility], [address], [place], [address], [facility] & [place] 04/25/2023 13:16:30 05/28/2023 text/html patient is a [...] the bladder diverticulum. Zackary Chandler Jr, MD [address] [facility], [address], [place], [address], [facility] & [place] 05/28/2023 13:02:31
[2025-03-03 01:57] VITALS: BP 110/78; PULSE 68; RESP 14; TEMP 37.1; O2SAT 100
== END 2025-03-03 01:57 | disposition home or self-care (01) ==
PROVIDERS: Emergency Provider Emergency Medicine; PCP Nurse Practitioner Family
DX: I50.20 Unspecified systolic (congestive) heart failure (principal); R60.9 Edema, unspecified; E11.00 Type 2 diabetes mellitus with hyperosmolarity without nonketotic hyperglycemic-hyperosmolar coma (NKHHC); I71.10 Thoracic aortic aneurysm, ruptured, unspecified
CPT/HCPCS: 99282

== ENCOUNTER 2025-04-06 14:43 | Outpatient (CLI) | payer MEDICARE, SELFPAY ==
--- OUTSIDE RECORDS SUMMARY | 2025-04-06 14:44 | XMS_ITS ---
Author Name Auto Generated, Auto Generated Organization [facility] ator Address [address] [place] [address] Phone [phone] Care Team Providers Care Automatic Profile Sander Operator Name Role Phone Eduar Velasco Unavailable [phone] Functional Status No Results Mental Status No Results Allergies and Intolerances Name Onset Date Reaction Severity penicillin (Allergy) FriFebruary 11 08:38:00 EDT 202 5 amoxicillin (Allergy) FriFebruary 11 08:38:00 EDT 20 25 Encounters Program Name Primary Diagnosis Admission Date/Time Dis charge Date/Time null FriFebruary 09 20:00 :00 EDT 2024February 26 19:59:59 EDT 2024 Problems No Known Problems Social History Social History Observation Description Date Smoking Status Former smoker FriFebruary 10 00:00 :00 EDT 2024 Sex Male Sun Dec 19 00:00 :00 EST 1950 Reason for Referral
--- OUTSIDE RECORDS SUMMARY | 2025-04-06 14:44 | XMS_ITS ---
Author Name Auto Generated, Auto Generated Organization [facility] at[facility] Address [address] [place] [address] Phone [phone] Care Team Providers Care Animation Director Name Role Phone Eduar Velasco Unavailable [phone] Functional Status No Results Mental Status No [...]
--- OUTSIDE RECORDS SUMMARY | 2025-04-06 14:46 | XMS_ITS | Encounter Summary ---
Author Organization [facility] Address [address] [address] Care Team Providers Care Tank Maker Wood Name Role Phone Marielos Amaral APRN Primary Care Provider [phone] Encounter Details Date Type Department Care Team (Late st Contact Info) Description 02/02/2025 Orders Only External Location [address] [place] [address] Provider, External Social History Tobacco Use Types Packs/Day Years Used Date Smoking Tobacco: Former Cigarettes Smokeless Tobacco: Never Alcohol Use Standard Drinks/Week Comments Yes 0 (1 standard drink = 0.6 oz pur e alcohol) Sex and Gender Information Value Date Recorded Sex Assigned at Not on file Legal Sex Male 12:24 PM EDT Gender Identity Not on file Sexual Orientation Not on file documented as of this encounter Plan of Treatment Not on file documented as of this encounter Procedures Procedure Name Priority Date/Time Associated Diagnosis Comments US OUTSIDE IMAGES 02/02/2025 9:25 AM EDT documented in this encounter Results * US OUTSIDE IMAGES (02/02/2025 9:25 AM EDT) Anatomical Region Laterality Modality Ultrasound 02/02/2025 9:25 AM EDT us External Provider IMG US PROCEDURES Final Result documented in this encounter Visit Diagnoses Not on filedocumented in this encounter Care Teams Tank Maker Wood Relationship Specialty Start Date End Date Marielos Amaral APRN [address] [place] [phone] PCP - General 03/26/22 documented as of this encounter
--- OUTSIDE RECORDS SUMMARY | 2025-04-06 14:46 | XMS_ITS | Encounter Summary ---
Author Organization [facility] Address [address] [id number] Care Team Providers Care Diplomatic Courier Name Role Phone Marielos Amaral APRN Primary Care Provider [phone] Encounter Details Date Type Department Care Team (Late st Contact Info) Description 02/02/2025 Orders Only External Location [address] [place] [address] Provider, External Social History Tobacco Use Types [...] Procedure Name Priority Date/Time Associated Diagnosis Comments XR OUTSIDE IMAGES 02/02/2025 2:56 AM EDT documented in this encounter Results * XR OUTSIDE IMAGES (02/02/2025 2:56 AM EDT) Anatomical Region Laterality Modality Radiographic Tessy ging 02/02/2025 2:56 AM EDT us External Provider IMG XR PROCEDURES Final Result documented in this encounter Visit Diagnoses Not on filedocumented in this encounter Care Teams Diplomatic Courier Relationship Specialty Start Date End Date Marielos Amaral APRN [address] [place] [id number] PCP - General 03/26/22 documented as of this encounter
--- OUTSIDE RECORDS SUMMARY | 2025-04-06 14:46 | XMS_ITS | Encounter Summary ---
Author Organization [facility] Address [address] [id number] Care Team Providers Care Vp Security Name Role Phone Marielos Amaral APRN Primary Care Provider [phone]- [phone] Encounter Details Date Type Department Care Team (Late st Contact Info) Description 02/02/2025 Orders Only External Location [address] [place] [address] Provider, External Social History Tobacco Use Types [...] Associated Diagnosis Comments US OUTSIDE IMAGES 02/02/2025 7:37 AM EDT documented in this encounter Results * US OUTSIDE IMAGES (02/02/2025 7:37 AM EDT) Anatomical Region Laterality Modality Ultrasound 02/02/2025 7:37 AM EDT us External Provider IMG US PROCEDURES Final Result documented in this encounter Visit Diagnoses Not on filedocumented in this encounter Care Teams Vp Security Relationship Specialty Start Date End Date Marielos Amaral APRN [address] [place] [phone] PCP - General 03/26/22 documented as of this encounter
--- OUTSIDE RECORDS SUMMARY | 2025-04-06 14:46 | XMS_ITS | Encounter Summary ---
Author Organization Address [address] [id number] Care Team Providers Care Secretary Of Police Name Role Phone Marielos Amaral APRN Primary Care Provider [phone]- [phone] Encounter Details Date Type Department Care Team (Late st Contact Info) Description 02/02/2025 Orders Only External Location [address] [place] [address] Provider, External Social History Tobacco Use Types [...] Associated Diagnosis Comments XR OUTSIDE IMAGES 02/02/2025 4:37 AM EDT documented in this encounter Results * XR OUTSIDE IMAGES (02/02/2025 4:37 AM EDT) Anatomical Region Laterality Modality Radiographic Tessy ging 02/02/2025 4:37 AM EDT us External Provider IMG XR PROCEDURES Final Result documented in this encounter Visit Diagnoses Not on filedocumented in this encounter Care Teams Secretary Of Police Relationship Specialty Start Date End Date Marielos Amaral APRN [address] [place] [phone] PCP - General 03/26/22 documented as of this encounter
--- OUTSIDE RECORDS SUMMARY | 2025-04-06 14:46 | XMS_ITS | Clinical Summary ---
Author Organization [facility] Address [address] [place] [address] Care Team Providers Care Design Editor Name Role Phone Marielos Amaral KAYE Primary Care Provider [phone]- [phone] Allergies No known active allergies Medications hydrALAZINE (Apresoline) 50 MG tabletIndications :Essential hypertension Take 1.5 tablets (75 mg total) by mouth 3 (three) times a day. 135 tablet 3 2 Active ergocalciferol (Drisdol) 1.25 MG (82296 UT) capsuleIndication s:Vitamin D deficiency 50,000 units weekly for 12 weeks then take 1,000 units daily of vitamin d3 12 capsule 2 Active pantoprazole (Protonix) 40 MG EC tablet TAKE 1 TABLET BY MOUTH ONCE DAILY FOR 90 DAYS 2 Active levothyroxine (Synthroid, Levoxyl) 75 MCG tablet 2 Active Lantus SoloStar 100 UNIT/ML injection pen 2 Active amiodarone (Pacerone) 200 MG tablet Take by mouth 1 (one) time each day. Active apixaban (Eliquis) 5 MG tablet Take 5 mg by mouth 1 (one) time each day. Active atorvastatin (Lipitor) 40 MG tablet Take 40 mg by mouth 1 (one) time each day. Active bumetanide (Bumex) 1 MG tablet Take by mouth 1 (one) time each day. Active lisinopril 40 MG tablet Take 40 mg by mouth 1 (one) time each day. Active metFORMIN (Glucophage) 1000 MG tablet Take 1,000 mg by mouth 1 (one) time each day. Active SITagliptin (Januvia) 100 MG tablet Take 100 mg by mouth 1 (one) time each day. Active spironolactone (Aldactone) 25 MG tablet Take 25 mg by mouth 1 (one) time each day. Active tamsulosin (Flomax) 0.4 MG 24 hr capsule Take 0.4 mg by mouth 1 (one) time each day. Active metoprolol succinate XL (Toprol-XL) 50 MG 24 hr tablet Take 50 mg by mouth 1 (one) time each day. Do not crush or chew. 03/27/20 22 Discontinu ed(Contact Move - Error) Active Problems Problem Noted Date Diagnosed Date CKD (chronic kidney disease) stage 4, GFR 15-29 ml/min 05/14/2022 Diabetes mellitus type 2 05/14/2022 Overview (07/08/2022): Regulatory Update July 2022 Hypertension 05/14/2022 Encounters Date Type Department Care Team Description 02/02/2025 Orders Only External Location [address] [place] [address] Provider, External 02/02/2025 Orders Only External Location [address] [place] [address] Provider, External 02/02/2025 Orders Only External Location [address] [place] [address] Provider, External 02/02/2025 Orders Only External Location [address] [place] [address] Provider, External 02/01/2025 Orders Only External Location [address] [place] [address] Ayanna Mata, KAYE 01/31/2025 Orders Only External Location [address] [place] [address] Provider, External 01/31/2025 Orders Only External Location [address] [place] [address] Provider, External 01/29/2025 Orders Only External Location [address] [place] [address] Provider, External 01/29/2025 Orders Only External Location [address] [place] [address] Provider, External from Last 3 Months Immunizations Immunization Administration Dates Next Due Influenza, high-dose, quadrivalent 08/22/2021,,08/05/2019 Pneumococcal Polysaccharide PPV23 02/16/2017 Tdap 09/22/2018 Social History Tobacco Use Types Packs/Day Years Used Date Smoking Tobacco: Former Cigarettes Smokeless Tobacco: Never Tobacco Cessation:Counseling Given: Not Answered Alcohol Use Standard Drinks/Week Comments Yes 0 (1 standard drink = 0.6 oz pur e alcohol) Sex and Gender Information Value Date Recorded Sex Assigned at Not on file Legal Sex Male 12:24 PM EDT Gender Identity Not on file Sexual Orientation Not on file Last Filed Vital Signs Vital Sign Reading Time Taken Comments Blood Pressure 112/66 02/02/2025 4:32 PM EDT Pulse 73 02/02/2025 4:32 PM EDT Temperature - - Respiratory Rate 16 02/02/2025 4:32 PM EDT Oxygen Saturation 95% 02/02/2025 4:32 PM EDT 3 L NC Inhaled Oxygen Concentration - - Weight 86.2 kg (190 lb) 03/18/2022 2:50 PM EDT Height - - Body Mass Index - - Plan of Treatment Health Maintenance Due Date Last Done Comments [facility]-Depression Screening 1950 [facility]-Infant/Child/Adol SDOH Screenings 1950 [facility]- SDOH Screenings 12/19/1969 [facility]-Adult SDOH Screenings 12/19/1969 CT Colonography 12/19/1996 Colonoscopy 12/19/1996 FIT-DNA 12/19/1996 FIT 12/19/1996 FOBT 12/19/1996 Sigmoidoscopy 12/19/1996 [facility]-Colorectal Cancer Screening 12/19/1996 [facility]-Zoster Vaccines (1 of 2) 12/19/2001 [facility]-Pneumococcal Vaccine: 50+ Years (2 of 2 - PCV) 02/16/2018 02/16/2017 [id number] Vaccine ( season) 2024 08/13/2022, 02/02/2021, 01/02/2021 [facility]-Influenza Vaccine (Season Ended) 2025 08/13/2022, 08/22/2021, 07/11/2020, Additional history exists [facility]-RSV Vaccine: 60+ Years or (1 - 1-dose 75+ series) 12/19/2026 [facility]-DTaP,Tdap,and Td Vaccines (2 - Td or Tdap) 09/22/2028 09/22/2018 HPV Vaccines Aged Out No longer eligi ble based on patient's age to complete this topic [facility]-HIB Vaccines Aged Out No longer e ligible based on patient's age to complete this topic [facility]-Hepatitis A Vaccines Aged Out No longer eligible based on patient's age to complete this topic [facility]-IPV Vaccines Aged Out No longer e ligible based on patient's age to complete this topic [facility]-Rotavirus Vaccines Aged Out No lo nger eligible based on patient's age to complete this topic Procedures Procedure Name Priority Date/Time Associated Diagnosis Comments US OUTSIDE IMAGES 02/02/2025 9:25 AM EDT US OUTSIDE IMAGES 02/02/2025 7:37 AM EDT XR OUTSIDE IMAGES 02/02/2025 4:37 AM EDT XR OUTSIDE IMAGES 02/02/2025 2:56 AM EDT US OUTSIDE IMAGES 02/01/2025 11:08 AM EDT NM OUTSIDE IMAGES 01/31/2025 2:34 PM EDT XR OUTSIDE IMAGES 01/31/2025 2:14 PM EDT XR OUTSIDE IMAGES 01/29/2025 10:57 PM EDT XR OUTSIDE IMAGES 01/29/2025 5:13 PM EDT from Last 3 Months Results * US OUTSIDE IMAGES (02/02/2025 9:25 AM EDT) Only the most recent of3 resultswithin the time period is included. Anatomical Region Laterality Modality Ultrasound 02/02/2025 9:25 AM EDT us External Provider IMG US PROCEDURES Final Result * XR OUTSIDE IMAGES (02/02/2025 4:37 AM EDT) Only the most recent of5 resultswithin the time period is included. Anatomical Region Laterality Modality Radiographic Tessy ging 02/02/2025 4:37 AM EDT us External Provider IMG XR PROCEDURES Final Result * NM OUTSIDE IMAGES (01/31/2025 2:34 PM EDT) Anatomical Region Laterality Modality Nuclear Medicine 01/31/2025 2:34 PM EDT External Provider IMG NM PROCEDURES Final Result from Last 3 Months Insurance [employer] MEDICARE Care Teams Design Editor Relationship Specialty Start Date End Date Marielos Amaral APRN [address] [place] [address] PCP - General 03/26/22
--- OUTSIDE RECORDS SUMMARY | 2025-04-06 14:46 | XMS_ITS | Encounter Summary ---
Author Organization [facility] Address [address] [place] [address] Care Team Providers Care Head Track Coach Name Role Phone Marielos Amaral APRN Primary Care Provider [phone]- [phone] Encounter Details Date Type Department Care Team (Late st Contact Info) Description 02/01/2025 Orders Only External Location [address] [place] [address] Ayanna Mata APRN [address] [facility] [address] [facility] [address] [place], [place] [id number] Social History Tobacco Use Types Packs/Day Years [...] Date/Time Associated Diagnosis Comments US OUTSIDE IMAGES 02/01/2025 11:08 AM EDT documented in this encounter Results * US OUTSIDE IMAGES (02/01/2025 11:08 AM EDT) Anatomical Region Laterality Modality Ultrasound 02/01/2025 11:0 8 AM EDT us Ayanna Mata APRN IMG US PROCEDURES Muna l Result documented in this encounter Visit Diagnoses Not on filedocumented in this encounter Care Teams Head Track Coach Relationship Specialty Start Date End Date Marielos Amaral APRN [address] [place] [address] PCP - General 03/26/22 documented as of this encounter
[2025-04-06 15:21] LABS: Hematocrit 39.2 % (42.0-52.0); Hemoglobin 13.1 g/dL (14.1-18.0); Immature Granulocytes % 0.6 %; Mean Corpuscular HGB Conc 33.4 g/dL (31.8-35.4); Mean Corpuscular Hemoglobin 28.4 pg (27.0-31.2); Mean Corpuscular Volume 85.0 fl (80-94); Nucleated Red Blood Cells % 0 %; Platelet Count 255 K/mm3 (142-424); Red Blood Count 4.61 M/mm3 (4.60-6.20); Red Cell Distribution Width-SD 47.9 fL; White Blood Count 8.1 K/mm3 (4.8-10.8)
[2025-04-06 15:58] LABS: Hemoglobin A1C 12.5 % (4.0-6.0)
[2025-04-06 16:12] LABS: Anion Gap 15.0 mEq/L (5-15); Blood Urea Nitrogen 58 mg/dl (9-20); Calcium 10.0 mg/dl (8.4-10.2); Carbon Dioxide 29 mmol/L (22.0-30.0); Chloride 91 mmol/L (98-107); Creatinine,Serum 2.50 mg/dl (0.66-1.25); Estimated Glomerular Filt Rate 25 ml/min (>60); GFR (African American) 31 ML/MIN (>60); Glucose 339 mg/dl (74-100); Potassium 4.0 mmoL/L (3.5-5.1); Sodium 131 mmol/L (136-145)
[2025-04-06 16:28] LABS: Free T4 (Free Thyroxine) 1.27 ng/dl (0.78-2.19)
[2025-04-06 16:42] LABS: Thyroid Stimulating Hormone 18.10 uIU/mL (0.465-4.68)
--- OUTSIDE RECORDS SUMMARY | 2025-04-30 20:00 | XMS_ITS | Clinical Summary ---
Author Organization Unknown Care Team Providers Care Eyeglass Frames Inspector Name Role Phone SOFÍA ARIAS, MADELAINE Unavailable Unavailable KATHI PT, SREEDHAR Unavailable Unavailable ZULAY DRIVEWAY ATTENDANT, KAYLIN Unavailable Unavailable LUCY OT, LUCY Unavailable Unavailable Payers Payer Name Policy Type Policy Number Effective Date Expira tion Date PORFIRIOAUTH [id number] Problems Condition Name Condition Details Condition Category Status Onset Date Resolution Date Last Treatment Date Treating Clinician Comments HEART FAILURE, UNSPECIFIED Active 02-10 00:00: 00 ATHSCL HEART DISEASE OF [place] CORONARY ARTERY W/O ANG PCTRS Active 02-10 [...] 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 OF 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 Active 02-10 00:00: 00 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 Active 02-10 [...] 2023-10 00:00: 00 03-03 00:00 :00 No [id number] DIURETIC 1 tablet NEEDED 1 tablet NEEDED (route: oral) Med Classific ation: Cardiovas cular Therapy Agents Adult Low Dose Aspirin 81 mg tablet,maria fernanda yed release 03-08 00:00: 00 03-03 00:00 :00 No [id number] BLOOD THINNER 1 tablet DAILY 1 tablet DAILY (route: oral) Med Classific ation: Hematolog ical Agents atorvastati n 20 mg tablet 04-05 00:00: 00 03-03 00:00 :00 No [id number] HYPERLIPIDE CHARLIE 1 tablet BEDTIME 1 tablet BEDTIME (route: oral) Med Classific ation: Cardiovas cular Therapy Agents ferrous sulfate 324 mg (65 mg iron) tablet,maria fernanda yed release 04-05 00:00: 00 Yes [id number] SUPPLEMENT 1 tablet DAILY 1 tablet DAILY (route: oral) Med Classific ation: Electroly te Balance-N utritiona l Products finasteride 5 mg tablet 04-05 00:00: 00 03-03 00:00 :00 No [id number] BPH 1 tablet DAILY 1 tablet DAILY (route: oral) Med Classific ation: Genitouri nary Therapy hydralazine 50 mg tablet 04-05 00:00: 00 11-05 00:00 :00 No [id number] HYPERTENSIO N 1 tablet EVERY 8 HOURS 1 tablet EVERY 8 HOURS (route: oral) Med Classific ation: Cardiovas cular Therapy Agents insulin lispro (U-100) 100 unit/mL subcutaneou s pen 04-05 00:00: 00 03-03 00:00 :00 No [id number] DIABETES 1 unit 3 TIMES DAILY 1 unit 3 TIMES DAILY (route: [facility]) Med Classific ation: Endocrine isosorbide dinitrate 10 mg tablet 04-05 00:00: 00 03-03 00:00 :00 No [id number] HYPERTENSIO N 1 tablet EVERY 8 HOURS 1 tablet EVERY 8 HOURS (route: oral) Med Classific ation: Cardiovas cular Therapy Agents Lantus Solostar U-100 Insulin 100 unit/mL (3 mL) [facility] pen 04-05 00:00: 00 Yes [id number] DIABETES 27 unit BEDTIME 27 unit BEDTIME (route: [facility]) Med Classific ation: Endocrine levothyroxi ne 75 mcg tablet 04-05 00:00: 00 03-03 00:00 :00 No [id number] HYPOTHYROID 1 tablet DAILY 1 tablet DAILY (route: oral) Med Classific ation: Endocrine melatonin 3 mg tablet 04-05 00:00: 00 Yes [id number] INSOMNIA 1 tablet BEDTIME 1 tablet BEDTIME (route: oral) Med Classific ation: Central Nervous System Agents Arthritis Pain Relief (acetaminop hen) ER 650 mg tablet,exte nd release 11-03 00:00: 03-03 00:00 :00 No [id number] PAIN 1 tablet EVERY 8 HOURS 1 tablet EVERY 8 HOURS (route: oral) Med Classific ation: Analgesic , Anti-infl ammatory or Antipyret ic carvedilol 3.125 mg tablet 11-03 00:00: 00 03-03 00:00 :00 No [id number] CHF 1 tablet 2 TIMES DAILY 1 tablet 2 TIMES DAILY (route: oral) Med Classific ation: Cardiovas cular Therapy Agents cholecalcif vaibhav (vitamin D3) 1,250 mcg (50,000 unit) tablet 11-03 00:00: 00 Yes [id number] SUPPLEMENT 1 tablet DAILY 1 tablet DAILY (route: oral) Med Classific ation: Electroly te Balance-N utritiona l Products clopidogrel 75 mg tablet 11-03 00:00: 00 Yes [id number] BLOOD THINNER 1 tablet DAILY 1 tablet DAILY (route: oral) Med Classific ation: Hematolog ical Agents Jardiance 10 mg tablet 11-03 00:00: 00 03-03 00:00 :00 No [id number] DIABETES 1 tablet DAILY 1 tablet DAILY (route: oral) Med Classific ation: Endocrine omeprazole 40 mg capsule,del ayed release 11-03 00:00: 00 Yes [id number] GI 1 capsule DAILY 1 capsule DAILY (route: oral) Med Classific ation: Gastroint estinal Therapy Agents atorvastati n 40 mg tablet 02-22 00:00: 00 Yes [id number] CHOLESTEROL 1 tablet BEDTIME 1 tablet BEDTIME (route: oral) Med Classific ation: Cardiovas cular Therapy Agents acetaminoph en 500 mg tablet 03-03 00:00: 00 Yes [id number] PAIN 1 tablet EVERY 6 HOURS 1 tablet EVERY 6 HOURS (route: oral) Med Classific ation: Analgesic , Anti-infl ammatory or Antipyret ic amiodarone 200 mg tablet 03-03 00:00: 00 Yes [id number] BLOOD PRESSURE 1 tablet 2 TIMES DAILY 1 tablet 2 TIMES DAILY (route: oral) Med Classific ation: Cardiovas cular Therapy Agents bumetanide 2 mg tablet 03-03 00:00: 00 Yes [id number] CHF 1 tablet 2 TIMES DAILY 1 tablet 2 TIMES DAILY (route: oral) Med Classific ation: Cardiovas cular Therapy Agents Humalog KwikPen (U-100) Insulin 100 unit/mL subcutaneou s 03-03 00:00: 00 Yes [id number] T2DM 5 unit 2 TIMES DAILY 5 unit 2 TIMES DAILY (route: [facility]) Med Classific ation: Endocrine hydralazine 10 mg tablet 03-03 00:00: 00 Yes [id number] BLOOD PRESSURE 2 tablet 3 TIMES DAILY 2 tablet 3 TIMES DAILY (route: oral) Med Classific ation: Cardiovas cular Therapy Agents isosorbide dinitrate 20 mg tablet 03-03 00:00: 00 Yes [id number] BLOOD PRESSURE 1 tablet 3 TIMES DAILY 1 tablet 3 TIMES DAILY (route: oral) Med Classific ation: Cardiovas cular Therapy Agents levothyroxi ne 88 mcg tablet 03-03 00:00: 00 Yes [id number] THYROID 1 tablet DAILY 1 tablet DAILY (route: oral) Med Classific ation: Endocrine Xarelto 15 mg tablet 03-03 00:00: 00 Yes [id number] BLOOD THINNER 1 tablet DAILY 1 tablet DAILY (route: oral) Med Classific ation: Hematolog ical Agents Vital Signs Vital Name Observation Time Observation Value Commen ts Temperature 2025-03-29 16:38:00.000 98.2 [degF] Temperature 2025-03-23 15:35:00.000 98.3 [degF] Temperature 2025-03-18 11:10:00.000 97.3 [degF] Temperature 2025-03-03 13:43:00.000 98.2 [degF] BMI (%) 2025-03-03 13:40:36.000 25 kg/m2 Height 2025-03-03 13:40:31.000 69 [in_us] Pulse 2025-03-29 16:38:00.000 88 /min Pulse 2025-03-23 15:35:00.000 75 /min Pulse 2025-03-18 11:10:00.000 63 /min Pulse 2025-03-03 13:43:00.000 88 /min O2 Saturation (%) 2025-03-29 16:38:00.000 98 % O2 Saturation (%) 2025-03-23 15:38:00.000 98 % O2 Saturation (%) 2025-03-18 11:10:00.000 98 % O2 Saturation (%) 2025-03-03 13:43:00.000 98 % Respirations 2025-03-29 16:38:00.000 18 /min Respirations 2025-03-23 15:35:00.000 18 /min Respirations 2025-03-18 11:10:00.000 18 /min Respirations 2025-03-03 13:43:00.000 18 /min Weight (lbs) 2025-03-23 15:37:00.000 164.6 [lb_av] Weight (lbs) 2025-03-18 11:36:00.000 170 [lb_av] Weight (lbs) 2025-03-03 13:40:36.000 174 [lb_av] Systolic Blood Pressure 2025-03-29 16:38:00.000 142 mm [Hg] Systolic Blood Pressure 2025-03-23 15:35:00.000 107 mm [Hg] Systolic Blood Pressure 2025-03-18 11:10:00.000 130 mm [Hg] Systolic Blood Pressure 2025-03-03 13:43:00.000 148 mm [Hg] Diastolic Blood Pressure 2025-03-29 16:38:00.000 [...] TO EVALUATE, OBSERVE / ASSESS, AND MONITOR, DRIVEWAY ATTENDANT TO OBSERVE AND MONITOR, PROVIDE SKILLED THERAPEUTIC INTERVENTION, ACTIVITY, EDUCATION, AND TRAINING TO ADDRESS; [code = AGENCY MAY PERFORM A RESUMPTION OF CARE VISIT FOLLOWING ANY HOSPITAL ADMISSION. PT TO EVALUATE, OBSERVE / ASSESS, AND MONITOR, DRIVEWAY ATTENDANT TO OBSERVE AND MONITOR, PROVIDE SKILLED THERAPEUTIC INTERVENTION, ACTIVITY, EDUCATION, AND TRAINING TO ADDRESS;] Future Scheduled Test THERAPEUTI C EXERCISES AND ESTABLISHING A HOME EXERCISE PROGRAM (PT/DRIVEWAY ATTENDANT) [code = THERAPEUTIC EXERCISES AND ESTABLISHING A HOME EXERCISE PROGRAM (PT/DRIVEWAY ATTENDANT)] Future Scheduled Test NEUROMUSCU LAR RE-EDUCATION / BALANCE / POSTURAL CONTROL (PT) [code = NEUROMUSCULAR RE-EDUCATION / BALANCE / POSTURAL CONTROL (PT)] Future Scheduled Test PT/DRIVEWAY ATTENDANT TO PROVIDE GAIT TRAINING FOR IMPROVED MOBILITY AND /OR TO NORMALIZE GAIT PATTERN [code = PT/DRIVEWAY ATTENDANT TO PROVIDE GAIT TRAINING FOR IMPROVED MOBILITY AND /OR TO NORMALIZE GAIT PATTERN] Future Scheduled Test SIT TO/FRO M STAND TRANSFERS (PT/DRIVEWAY ATTENDANT) [code = SIT TO/FROM STAND TRANSFERS (PT/DRIVEWAY ATTENDANT)] Future Scheduled Test PT/DRIVEWAY ATTENDANT TO IDENTIFY FALL RISK FACTORS; EDUCATE THE PATIENT/CAREGIVER ON WAYS TO REDUCE FALL RISK FACTORS AND ESTABLISH HOME EXERCISE PROGRAM TO MINIMIZE FALL RISK. MAY TEACH THE PATIENT FLOOR RECOVERY WHEN CLINICALLY APPROPRIATE [code = PT/DRIVEWAY ATTENDANT TO IDENTIFY FALL RISK FACTORS; EDUCATE THE PATIENT/CAREGIVER ON WAYS TO REDUCE FALL RISK FACTORS AND ESTABLISH HOME EXERCISE PROGRAM TO MINIMIZE FALL RISK. MAY TEACH THE PATIENT FLOOR RECOVERY WHEN CLINICALLY APPROPRIATE] Future Scheduled Test PT / DRIVEWAY ATTENDANT T O INSTRUCT PATIENT/CAREGIVER ON RISK FOR HOSPITALIZATION/EMERGENCY ROOM VISITS, TEACH SIGNS AND SYMPTOMS THAT PUT PATIENT AT RISK, WHEN TO NOTIFY NURSE/PHYSICIAN OF COMPLICATIONS/DECLINE, AND WHEN TO CALL 911. [code = PT / DRIVEWAY ATTENDANT TO INSTRUCT PATIENT/CAREGIVER ON RISK FOR HOSPITALIZATION/EMERGENCY ROOM VISITS, TEACH SIGNS AND SYMPTOMS THAT PUT PATIENT AT RISK, WHEN TO NOTIFY NURSE/PHYSICIAN OF COMPLICATIONS/DECLINE, AND WHEN TO CALL 911.] Future Scheduled Test PT TO ASSE SS / DRIVEWAY ATTENDANT TO MONITOR CARDIO/RESPIRATORY SYSTEM; AND NOTIFY THE PHYSICIAN AND/OR THE RN CLINICAL AIRLINE ATTENDANT FOR PHYSICIAN NOTIFICATION FOR EARLY SIGNS AND SYMPTOMS OF EXACERBATION OR DETERIORATION. [code = PT TO ASSESS / DRIVEWAY ATTENDANT TO MONITOR CARDIO/RESPIRATORY SYSTEM; AND NOTIFY THE PHYSICIAN AND/OR THE RN CLINICAL AIRLINE ATTENDANT FOR PHYSICIAN NOTIFICATION FOR EARLY SIGNS AND SYMPTOMS OF EXACERBATION OR DETERIORATION.] Future Scheduled Test PT / DRIVEWAY ATTENDANT T O MONITOR AND EDUCATE ON OXYGEN SATURATION DURING ADLS/IADLS, NOTIFY PHYSICIAN AND/OR THE RN CLINICAL AIRLINE ATTENDANT FOR PHYSICIAN NOTIFICATION AND IF O2 SATS BELOW PHYSICIAN ORDERED PARAMETERS AFTER 10 MIN OF REST [code = PT / DRIVEWAY ATTENDANT TO MONITOR AND EDUCATE ON OXYGEN SATURATION DURING ADLS/IADLS, NOTIFY PHYSICIAN AND/OR THE RN CLINICAL AIRLINE ATTENDANT FOR PHYSICIAN NOTIFICATION AND IF O2 SATS BELOW PHYSICIAN ORDERED PARAMETERS AFTER 10 MIN OF REST] Future Scheduled Test SKILLED NU RSING TO EVALUATE FOR PATHOLOGY MANAGEMENT [code = FCI TO EVALUATE FOR PATHOLOGY MANAGEMENT ] Goal Patient Goal - I NDEPENDENCE WITH FUNCTIONAL [...] EPISODE OF CARE. Goal Provider Goal - Encounters Start Date/Time End Date/Time Encounter Type Admission Type Attending [facility] Care Department Encounter ID Discharge Date Discharge Status Discharge Condition Discharge Reason Percent Goals Met 2025-03-03 00:00:00 2025-05-01 00:00:00 Outpatient SREEDHAR ANAND [facility] [id number] 71.43
--- OUTSIDE RECORDS SUMMARY | 2025-04-30 20:00 | XMS_ITS | Clinical Summary ---
Author Organization Unknown Care Team Providers Care Client Support Coordinator Name Role Phone SOFÍA ARIAS, MADELAINE Unavailable Unavailable KATHI PT, SREEDHAR Unavailable Unavailable ZULAY COMPLIANCE LEAD, KAYLIN Unavailable Unavailable LUCY OT, LUCY Unavailable Unavailable Payers Payer Name Policy Type Policy Number Effective Date Expira tion Date PORFIRIOAUTH [id number] Problems Condition Name Condition Details Condition Category Status Onset Date Resolution Date Last Treatment Date Treating Clinician Comments HEART FAILURE, UNSPECIFIED Active 02-10 00:00: 00 ATHSCL HEART DISEASE OF [place] CORONARY ARTERY W/O ANG PCTRS Active 02-10 [...] Y BYPASS GRAFT Active 10-06 00:00: 00 [facility] (CURRENT) USE OF INSULIN Active 02-10 00:00: 00 [facility] (CURRENT) USE OF ANTICOAGULAN TS Active 02-10 [...] 2023-10 00:00: 00 03-03 00:00 :00 No [id number] DIURETIC 1 tablet NEEDED 1 tablet NEEDED (route: oral) Med Classific ation: Cardiovas cular Therapy Agents Adult Low Dose Aspirin 81 mg tablet,maria fernanda yed release 03-08 00:00: 00 03-03 00:00 :00 No [id number] BLOOD THINNER 1 tablet DAILY 1 tablet DAILY (route: oral) Med Classific ation: Hematolog ical Agents atorvastati n 20 mg tablet 04-05 00:00: 00 03-03 00:00 :00 No [id number] HYPERLIPIDE CHARLIE 1 tablet BEDTIME 1 tablet BEDTIME (route: oral) Med Classific ation: Cardiovas cular Therapy Agents ferrous sulfate 324 mg (65 mg iron) tablet,maria fernanda yed release 04-05 00:00: 00 Yes [id number] SUPPLEMENT 1 tablet DAILY 1 tablet DAILY (route: oral) Med Classific ation: Electroly te Balance-N utritiona l Products finasteride 5 mg tablet 04-05 00:00: 00 03-03 00:00 :00 No [id number] BPH 1 tablet DAILY 1 tablet DAILY (route: oral) Med Classific ation: Genitouri nary Therapy hydralazine 50 mg tablet 04-05 00:00: 00 11-05 00:00 :00 No [id number] HYPERTENSIO N 1 tablet EVERY 8 HOURS 1 tablet EVERY 8 HOURS (route: oral) Med Classific ation: Cardiovas cular Therapy Agents insulin lispro (U-100) 100 unit/mL subcutaneou s pen 04-05 00:00: 00 03-03 00:00 :00 No [id number] DIABETES 1 unit 3 TIMES DAILY 1 unit 3 TIMES DAILY (route: [facility]) Med Classific ation: Endocrine isosorbide dinitrate 10 mg tablet 04-05 00:00: 00 03-03 00:00 :00 No [id number] HYPERTENSIO N 1 tablet EVERY 8 HOURS 1 tablet EVERY 8 HOURS (route: oral) Med Classific ation: Cardiovas cular Therapy Agents Lantus Solostar U-100 Insulin 100 unit/mL (3 mL[facility] 04-05 00:00: 00 Yes [id number] DIABETES 27 unit BEDTIME 27 unit BEDTIME (route: [facility]) Med Classific ation: Endocrine levothyroxi ne 75 mcg tablet 04-05 00:00: 00 03-03 00:00 :00 No [id number] HYPOTHYROID 1 tablet DAILY 1 tablet DAILY (route: oral) Med Classific ation: Endocrine melatonin 3 mg tablet 04-05 00:00: 00 Yes [id number] INSOMNIA 1 tablet BEDTIME 1 tablet BEDTIME (route: oral) Med Classific ation: Central Nervous System Agents Arthritis Pain Relief (acetaminop hen) ER 650 mg tablet,exte nd release 11-03 00:00: 03-03 00:00 :00 No [id number] PAIN 1 tablet EVERY 8 HOURS 1 tablet EVERY 8 HOURS (route: oral) Med Classific ation: Analgesic , Anti-infl ammatory or Antipyret ic carvedilol 3.125 mg tablet 11-03 00:00: 00 03-03 00:00 :00 No [id number] CHF 1 tablet 2 TIMES DAILY 1 tablet 2 TIMES DAILY (route: oral) Med Classific ation: Cardiovas cular Therapy Agents cholecalcif vaibhav (vitamin D3) 1,250 mcg (50,000 unit) tablet 11-03 00:00: 00 Yes [id number] SUPPLEMENT 1 tablet DAILY 1 tablet DAILY (route: oral) Med Classific ation: Electroly te Balance-N utritiona l Products clopidogrel 75 mg tablet 11-03 00:00: 00 Yes [id number] BLOOD THINNER 1 tablet DAILY 1 tablet DAILY (route: oral) Med Classific ation: Hematolog ical Agents Jardiance 10 mg tablet 11-03 00:00: 00 03-03 00:00 :00 No [id number] DIABETES 1 tablet DAILY 1 tablet DAILY (route: oral) Med Classific ation: Endocrine omeprazole 40 mg capsule,del ayed release 11-03 00:00: 00 Yes [id number] GI 1 capsule DAILY 1 capsule DAILY (route: oral) Med Classific ation: Gastroint estinal Therapy Agents atorvastati n 40 mg tablet 02-22 00:00: 00 Yes [id number] CHOLESTEROL 1 tablet BEDTIME 1 tablet BEDTIME (route: oral) Med Classific ation: Cardiovas cular Therapy Agents acetaminoph en 500 mg tablet 03-03 00:00: 00 Yes [id number] PAIN 1 tablet EVERY 6 HOURS 1 tablet EVERY 6 HOURS (route: oral) Med Classific ation: Analgesic , Anti-infl ammatory or Antipyret ic amiodarone 200 mg tablet 03-03 00:00: 00 Yes [id number] BLOOD PRESSURE 1 tablet 2 TIMES DAILY 1 tablet 2 TIMES DAILY (route: oral) Med Classific ation: Cardiovas cular Therapy Agents bumetanide 2 mg tablet 03-03 00:00: 00 Yes [id number] CHF 1 tablet 2 TIMES DAILY 1 tablet 2 TIMES DAILY (route: oral) Med Classific ation: Cardiovas cular Therapy Agents Humalog KwikPen (U-100) Insulin 100 unit/mL subcutaneou s 03-03 00:00: 00 Yes [id number] T2DM 5 unit 2 TIMES DAILY 5 unit 2 TIMES DAILY (route: subcutaneo us) Med Classific ation: Endocrine hydralazine 10 mg tablet 03-03 00:00: 00 Yes [id number] BLOOD PRESSURE 2 tablet 3 TIMES DAILY 2 tablet 3 TIMES DAILY (route: oral) Med Classific ation: Cardiovas cular Therapy Agents isosorbide dinitrate 20 mg tablet 03-03 00:00: 00 Yes [id number] BLOOD PRESSURE 1 tablet 3 TIMES DAILY 1 tablet 3 TIMES DAILY (route: oral) Med Classific ation: Cardiovas cular Therapy Agents levothyroxi ne 88 mcg tablet 03-03 00:00: 00 Yes [id number] THYROID 1 tablet DAILY 1 tablet DAILY (route: oral) Med Classific ation: Endocrine Xarelto 15 mg tablet 03-03 00:00: 00 Yes [id number] BLOOD THINNER 1 tablet DAILY 1 tablet [...] TO EVALUATE, OBSERVE / ASSESS, AND MONITOR, COMPLIANCE LEAD TO OBSERVE AND MONITOR, PROVIDE SKILLED THERAPEUTIC INTERVENTION, ACTIVITY, EDUCATION, AND TRAINING TO ADDRESS; [code = AGENCY MAY PERFORM A RESUMPTION OF CARE VISIT FOLLOWING ANY HOSPITAL ADMISSION. PT TO EVALUATE, OBSERVE / ASSESS, AND MONITOR, COMPLIANCE LEAD TO OBSERVE AND MONITOR, PROVIDE SKILLED THERAPEUTIC INTERVENTION, ACTIVITY, EDUCATION, AND TRAINING TO ADDRESS;] Future Scheduled Test THERAPEUTI C EXERCISES AND ESTABLISHING A HOME EXERCISE PROGRAM (PT/COMPLIANCE LEAD) [code = THERAPEUTIC EXERCISES AND ESTABLISHING A HOME EXERCISE PROGRAM (PT/COMPLIANCE LEAD)] Future Scheduled Test NEUROMUSCU LAR RE-EDUCATION / BALANCE / POSTURAL CONTROL (PT) [code = NEUROMUSCULAR RE-EDUCATION / BALANCE / POSTURAL CONTROL (PT)] Future Scheduled Test PT/COMPLIANCE LEAD TO PROVIDE GAIT TRAINING FOR IMPROVED MOBILITY AND /OR TO NORMALIZE GAIT PATTERN [code = PT/COMPLIANCE LEAD TO PROVIDE GAIT TRAINING FOR IMPROVED MOBILITY AND /OR TO NORMALIZE GAIT PATTERN] Future Scheduled Test SIT TO/FRO M STAND TRANSFERS (PT/COMPLIANCE LEAD) [code = SIT TO/FROM STAND TRANSFERS (PT/COMPLIANCE LEAD)] Future Scheduled Test PT/COMPLIANCE LEAD TO IDENTIFY FALL RISK FACTORS; EDUCATE THE PATIENT/CAREGIVER ON WAYS TO REDUCE FALL RISK FACTORS AND ESTABLISH HOME EXERCISE PROGRAM TO MINIMIZE FALL RISK. MAY TEACH THE PATIENT FLOOR RECOVERY WHEN CLINICALLY APPROPRIATE [code = PT/COMPLIANCE LEAD TO IDENTIFY FALL RISK FACTORS; EDUCATE THE PATIENT/CAREGIVER ON WAYS TO REDUCE FALL RISK FACTORS AND ESTABLISH HOME EXERCISE PROGRAM TO MINIMIZE FALL RISK. MAY TEACH THE PATIENT FLOOR RECOVERY WHEN CLINICALLY APPROPRIATE] Future Scheduled Test PT / COMPLIANCE LEAD T O INSTRUCT PATIENT/CAREGIVER ON RISK FOR HOSPITALIZATION/EMERGENCY ROOM VISITS, TEACH SIGNS AND SYMPTOMS THAT PUT PATIENT AT RISK, WHEN TO NOTIFY NURSE/PHYSICIAN OF COMPLICATIONS/DECLINE, AND WHEN TO CALL 911. [code = PT / COMPLIANCE LEAD TO INSTRUCT PATIENT/CAREGIVER ON RISK FOR HOSPITALIZATION/EMERGENCY ROOM VISITS, TEACH SIGNS AND SYMPTOMS THAT PUT PATIENT AT RISK, WHEN TO NOTIFY NURSE/PHYSICIAN OF COMPLICATIONS/DECLINE, AND WHEN TO CALL 911.] Future Scheduled Test PT TO ASSE SS / COMPLIANCE LEAD TO MONITOR CARDIO/RESPIRATORY SYSTEM; AND NOTIFY THE PHYSICIAN AND/OR THE RN CLINICAL SALES CLERK FOOD FOR PHYSICIAN NOTIFICATION FOR EARLY SIGNS AND SYMPTOMS OF EXACERBATION OR DETERIORATION. [code = PT TO ASSESS / COMPLIANCE LEAD TO MONITOR CARDIO/RESPIRATORY SYSTEM; AND NOTIFY THE PHYSICIAN AND/OR THE RN CLINICAL SALES CLERK FOOD FOR PHYSICIAN NOTIFICATION FOR EARLY SIGNS AND SYMPTOMS OF EXACERBATION OR DETERIORATION.] Future Scheduled Test PT / COMPLIANCE LEAD T O MONITOR AND EDUCATE ON OXYGEN SATURATION DURING ADLS/IADLS, NOTIFY PHYSICIAN AND/OR THE RN CLINICAL SALES CLERK FOOD FOR PHYSICIAN NOTIFICATION AND IF O2 SATS BELOW PHYSICIAN ORDERED PARAMETERS AFTER 10 MIN OF REST [code = PT / COMPLIANCE LEAD TO MONITOR AND EDUCATE ON OXYGEN SATURATION DURING ADLS/IADLS, NOTIFY PHYSICIAN AND/OR THE RN CLINICAL SALES CLERK FOOD FOR PHYSICIAN NOTIFICATION AND IF O2 SATS BELOW PHYSICIAN ORDERED PARAMETERS AFTER 10 MIN OF REST] Future Scheduled Test SKILLED NU RSING TO EVALUATE FOR PATHOLOGY MANAGEMENT [code = USP TO EVALUATE FOR PATHOLOGY MANAGEMENT ] Goal [...] End Date/Time Encounter Type Admission Type Attending [facility] Care Department Encounter ID Discharge Date Discharge Status Discharge Condition Discharge Reason Percent Goals Met 2025-03-03 00:00:00 2025-05-01 00:00:00 Outpatient SREEDHAR ANAND [facility] [id number] 71.43
== END 2025-04-06 23:59 | disposition home or self-care (01) ==
LOC: LAB 14:44
PROVIDERS: PCP Nurse Practitioner Family; Visit Provider Internal Medicine
DX: I25.708 Atherosclerosis of coronary artery bypass graft(s), unspecified, with other forms of angina pectoris (principal); I27.20 Pulmonary hypertension, unspecified
CPT/HCPCS: 36415; 80048; 83036; 84439; 84443; 85025

== ENCOUNTER 2025-05-13 10:58 | Outpatient (CLI) | payer MEDICARE, SELFPAY ==
--- OUTSIDE RECORDS SUMMARY | 2025-04-14 20:00 | XMS_ITS | Clinical Summary ---
Author Organization Unknown Care Team Providers Care Policy Specialist Name Role Phone SOFÍA ARIAS, MADELAINE Unavailable Unavailable KATHI PT, SREEDHAR Unavailable Unavailable ZULAY VPK TEACHER, KAYLIN Unavailable Unavailable LUCY OT, LUCY Unavailable Unavailable Payers Payer Name Policy Type Policy Number Effective Date Expira tion Date PORFIRIOAUTH [id number] Problems Condition Name Condition Details Condition Category Status Onset Date Resolution Date Last Treatment Date Treating Clinician Comments HEART FAILURE, UNSPECIFIED Active 02-10 00:00: 00 ATHSCL HEART DISEASE OF [place] CORONARY ARTERY W/O ANG PCTRS Active 02-10 00:00: 00 ACUTE KIDNEY FAILURE, UNSPECIFIED Active 02-10 00:00: 00 TYPE 2 DIABETES MELLITUS W DIABETIC CHRONIC KIDNEY DISEASE Active 02-10 00:00: 00 CHRONIC KIDNEY DISEASE, STAGE 4 (SEVERE) Active 02-10 00:00: 00 UNSPECIFIED ATRIAL FIBRILLATION Active 02-10 00:00: 00 DIAPHRAGMATI C HERNIA WITH OBSTRUCTION, WITHOUT GANGRENE Active 02-10 00:00: 00 HYPERKALEMIA Active 02-10 00:00: 00 HYPOTHYROIDI SM, UNSPECIFIED Active 10-06 00:00: 00 GASTRO-ESOPH AGEAL REFLUX DISEASE WITHOUT ESOPHAGITIS Active 10-06 00:00: 00 BENIGN PROSTATIC HYPERPLASIA WITHOUT LOWER URINRY TRACT SYMP Active 10-06 00:00: 00 PRESENCE OF AORTOCORONAR Y BYPASS GRAFT Active 10-06 00:00: 00 SNF (CURRENT) USE OF INSULIN Active 02-10 00:00: 00 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 Ordering Clinician Indication Dosage Frequency Signature (SIG) Comments Components bumetanide 0.5 mg tablet 2023-10 00:00: 00 03-03 00:00 :00 No [id number] DIURETIC 1 tablet NEEDED 1 tablet NEEDED (route: oral) Med Classific ation: Cardiovas cular Therapy Agents Adult Low Dose Aspirin 81 mg tablet,maria fernanda yed release 03-08 00:00: 00 03-03 00:00 :00 No [id number] BLOOD THINNER 1 tablet DAILY 1 tablet DAILY (route: oral) Med Classific ation: Hematolog ical Agents atorvastati n 20 mg tablet 04-05 00:00: 00 03-03 00:00 :00 No [id number] HYPERLIPIDE CHARLIE 1 tablet BEDTIME 1 tablet BEDTIME (route: oral) Med Classific ation: Cardiovas cular Therapy Agents ferrous sulfate 324 mg (65 mg iron) tablet,maria fernanda yed release 04-05 00:00: 00 Yes [id number] SUPPLEMENT 1 tablet DAILY 1 tablet DAILY (route: oral) Med Classific ation: Electroly te Balance-N utritiona l Products finasteride 5 mg tablet 04-05 00:00: 00 03-03 00:00 :00 No [id number] BPH 1 tablet DAILY 1 tablet DAILY (route: oral) Med Classific ation: Genitouri nary Therapy hydralazine 50 mg tablet 04-05 00:00: 00 11-05 00:00 :00 No [id number] HYPERTENSIO N 1 tablet EVERY 8 HOURS 1 tablet EVERY 8 HOURS (route: oral) Med Classific ation: Cardiovas cular Therapy Agents insulin lispro (U-100) 100 unit/mL subcutaneou s pen 04-05 00:00: 00 03-03 00:00 :00 No [id number] DIABETES 1 unit 3 TIMES DAILY 1 unit 3 TIMES DAILY (route: [facility]) Med Classific ation: Endocrine isosorbide dinitrate 10 mg tablet 04-05 00:00: 00 03-03 00:00 :00 No [id number] HYPERTENSIO N 1 tablet EVERY 8 HOURS 1 tablet EVERY 8 HOURS (route: oral) Med Classific ation: Cardiovas cular Therapy Agents Lantus Solostar U-100 Insulin 100 unit/mL (3 mL) subcsaint [facility] s pen 04-05 00:00: 00 Yes [id number] DIABETES 27 unit BEDTIME 27 unit BEDTIME (route: [facility]) Med Classific ation: Endocrine levothyroxi ne 75 mcg tablet 04-05 00:00: 00 03-03 00:00 :00 No [id number] HYPOTHYROID 1 tablet DAILY 1 tablet DAILY (route: oral) Med Classific ation: Endocrine melatonin 3 mg tablet 04-05 00:00: 00 Yes [id number] INSOMNIA 1 tablet BEDTIME 1 tablet BEDTIME (route: oral) Med Classific ation: Central Nervous System Agents Arthritis Pain Relief (acetaminop hen) ER 650 mg tablet,exte nd release 11-03 00:00: 03-03 00:00 :00 No [id number] PAIN 1 tablet EVERY 8 HOURS 1 tablet EVERY 8 HOURS (route: oral) Med Classific ation: Analgesic , Anti-infl ammatory or Antipyret ic carvedilol 3.125 mg tablet 11-03 00:00: 00 03-03 00:00 :00 No [id number] CHF 1 tablet 2 TIMES DAILY 1 tablet 2 TIMES DAILY (route: oral) Med Classific ation: Cardiovas cular Therapy Agents cholecalcif vaibhav (vitamin D3) 1,250 mcg (50,000 unit) tablet 11-03 00:00: 00 Yes [id number] SUPPLEMENT 1 tablet DAILY 1 tablet DAILY (route: oral) Med Classific ation: Electroly te Balance-N utritiona l Products clopidogrel 75 mg tablet 11-03 00:00: 00 Yes [id number] BLOOD THINNER 1 tablet DAILY 1 tablet DAILY (route: oral) Med Classific ation: Hematolog ical Agents Jardiance 10 mg tablet 11-03 00:00: 00 03-03 00:00 :00 No [id number] DIABETES 1 tablet DAILY 1 tablet DAILY (route: oral) Med Classific ation: Endocrine omeprazole 40 mg capsule,del ayed release 11-03 00:00: 00 Yes [id number] GI 1 capsule DAILY 1 capsule DAILY (route: oral) Med Classific ation: Gastroint estinal Therapy Agents atorvastati n 40 mg tablet 02-22 00:00: 00 Yes [id number] CHOLESTEROL 1 tablet BEDTIME 1 tablet BEDTIME (route: oral) Med Classific ation: Cardiovas cular Therapy Agents acetaminoph en 500 mg tablet 03-03 00:00: 00 Yes [id number] PAIN 1 tablet EVERY 6 HOURS 1 tablet EVERY 6 HOURS (route: oral) Med Classific ation: Analgesic , Anti-infl ammatory or Antipyret ic amiodarone 200 mg tablet 03-03 00:00: 00 Yes [id number] BLOOD PRESSURE 1 tablet 2 TIMES DAILY 1 tablet 2 TIMES DAILY (route: oral) Med Classific ation: Cardiovas cular Therapy Agents bumetanide 2 mg tablet 03-03 00:00: 00 Yes [id number] CHF 1 tablet 2 TIMES DAILY 1 tablet 2 TIMES DAILY (route: oral) Med Classific ation: Cardiovas cular Therapy Agents Humalog KwikPen (U-100) Insulin 100 unit/mL subcutaneou s 03-03 00:00: 00 Yes [id number] T2DM 5 unit 2 TIMES DAILY 5 unit 2 TIMES DAILY (route: subcutaneo us) Med Classific ation: Endocrine hydralazine 10 mg tablet 03-03 00:00: 00 Yes [id number] BLOOD PRESSURE 2 tablet 3 TIMES DAILY 2 tablet 3 TIMES DAILY (route: oral) Med Classific ation: Cardiovas cular Therapy Agents isosorbide dinitrate 20 mg tablet 03-03 00:00: 00 Yes [id number] BLOOD PRESSURE 1 tablet 3 TIMES DAILY 1 tablet 3 TIMES DAILY (route: oral) Med Classific ation: Cardiovas cular Therapy Agents levothyroxi ne 88 mcg tablet 03-03 00:00: 00 Yes [id number] THYROID 1 tablet DAILY 1 tablet DAILY (route: oral) Med Classific ation: Endocrine Xarelto 15 mg tablet 03-03 00:00: 00 Yes [id number] BLOOD THINNER 1 tablet DAILY 1 tablet DAILY (route: oral) Med Classific ation: Hematolog ical Agents Vital Signs Vital Name Observation Time Observation Value Commen ts Temperature 2025-04-15 16:14:00.000 97.1 [degF] Temperature 2025-03-29 16:38:00.000 98.2 [degF] Temperature 2025-03-23 15:35:00.000 98.3 [degF] Temperature 2025-03-18 11:10:00.000 97.3 [degF] Temperature 2025-03-03 13:43:00.000 98.2 [degF] BMI (%) 2025-03-03 13:40:36.000 25 kg/m2 Height 2025-03-03 13:40:31.000 69 [in_us] Pulse 2025-04-15 16:14:00.000 76 /min Pulse 2025-04-06 10:35:00.000 84 /min Pulse 2025-03-29 16:38:00.000 88 /min Pulse 2025-03-23 15:35:00.000 75 /min Pulse 2025-03-18 11:10:00.000 63 /min Pulse 2025-03-03 13:43:00.000 88 /min O2 Saturation (%) 2025-04-06 10:35:00.000 99 % O2 Saturation (%) 2025-03-29 16:38:00.000 98 % O2 Saturation (%) 2025-03-23 15:38:00.000 98 % O2 Saturation (%) 2025-03-18 11:10:00.000 98 % O2 Saturation (%) 2025-03-03 13:43:00.000 98 % Respirations 2025-04-15 16:14:00.000 16 /min Respirations 2025-04-06 10:35:00.000 18 /min Respirations 2025-03-29 16:38:00.000 18 /min Respirations 2025-03-23 15:35:00.000 18 /min Respirations 2025-03-18 11:10:00.000 18 /min Respirations 2025-03-03 13:43:00.000 18 /min Weight (lbs) 2025-03-23 15:37:00.000 164.6 [lb_av] Weight (lbs) 2025-03-18 11:36:00.000 170 [lb_av] Weight (lbs) 2025-03-03 13:40:36.000 174 [lb_av] Systolic Blood Pressure 2025-04-15 16:14:00.000 122 mm [Hg] Systolic Blood Pressure 2025-04-06 10:35:00.000 120 mm [Hg] Systolic Blood Pressure 2025-03-29 16:38:00.000 142 mm [Hg] Systolic Blood Pressure 2025-03-23 15:35:00.000 107 mm [Hg] Systolic Blood Pressure 2025-03-18 11:10:00.000 130 mm [Hg] Systolic Blood Pressure 2025-03-03 13:43:00.000 148 mm [Hg] Diastolic Blood Pressure 2025-04-15 16:14:00.000 76 mm [Hg] Diastolic Blood Pressure 2025-04-06 10:35:00.000 62 mm [Hg] Diastolic Blood Pressure 2025-03-29 16:38:00.000 82 mm [Hg] Diastolic Blood Pressure 2025-03-23 15:35:00.000 69 mm [Hg] Diastolic Blood Pressure 2025-03-18 11:10:00.000 76 mm [Hg] Diastolic Blood Pressure 2025-03-03 13:43:00.000 66 mm [Hg] Plan of Treatment Planned Activity Planned Date Details Comments Future Scheduled Test AGENCY MAY PERFORM A RESUMPTION OF CARE VISIT FOLLOWING ANY HOSPITAL ADMISSION. PT TO EVALUATE, OBSERVE / ASSESS, AND MONITOR, VPK TEACHER TO OBSERVE AND MONITOR, PROVIDE SKILLED THERAPEUTIC INTERVENTION, ACTIVITY, EDUCATION, AND TRAINING TO ADDRESS; [code = AGENCY MAY PERFORM A RESUMPTION OF CARE VISIT FOLLOWING ANY HOSPITAL ADMISSION. PT TO EVALUATE, OBSERVE / ASSESS, AND MONITOR, VPK TEACHER TO OBSERVE AND MONITOR, PROVIDE SKILLED THERAPEUTIC INTERVENTION, ACTIVITY, EDUCATION, AND TRAINING TO ADDRESS;] Future Scheduled Test THERAPEUTI C EXERCISES AND ESTABLISHING A HOME EXERCISE PROGRAM (PT/VPK TEACHER) [code = THERAPEUTIC EXERCISES AND ESTABLISHING A HOME EXERCISE PROGRAM (PT/VPK TEACHER)] Future Scheduled Test NEUROMUSCU LAR RE-EDUCATION / BALANCE / POSTURAL CONTROL (PT) [code = NEUROMUSCULAR RE-EDUCATION / BALANCE / POSTURAL CONTROL (PT)] Future Scheduled Test PT/VPK TEACHER TO PROVIDE GAIT TRAINING FOR IMPROVED MOBILITY AND /OR TO NORMALIZE GAIT PATTERN [code = PT/VPK TEACHER TO PROVIDE GAIT TRAINING FOR IMPROVED MOBILITY AND /OR TO NORMALIZE GAIT PATTERN] Future Scheduled Test SIT TO/FRO M STAND TRANSFERS (PT/VPK TEACHER) [code = SIT TO/FROM STAND TRANSFERS (PT/VPK TEACHER)] Future Scheduled Test PT/VPK TEACHER TO IDENTIFY FALL RISK FACTORS; EDUCATE THE PATIENT/CAREGIVER ON WAYS TO REDUCE FALL RISK FACTORS AND ESTABLISH HOME EXERCISE PROGRAM TO MINIMIZE FALL RISK. MAY TEACH THE PATIENT FLOOR RECOVERY WHEN CLINICALLY APPROPRIATE [code = PT/VPK TEACHER TO IDENTIFY FALL RISK FACTORS; EDUCATE THE PATIENT/CAREGIVER ON WAYS TO REDUCE FALL RISK FACTORS AND ESTABLISH HOME EXERCISE PROGRAM TO MINIMIZE FALL RISK. MAY TEACH THE PATIENT FLOOR RECOVERY WHEN CLINICALLY APPROPRIATE] Future Scheduled Test PT / VPK TEACHER T O INSTRUCT PATIENT/CAREGIVER ON RISK FOR HOSPITALIZATION/EMERGENCY ROOM VISITS, TEACH SIGNS AND SYMPTOMS THAT PUT PATIENT AT RISK, WHEN TO NOTIFY NURSE/PHYSICIAN OF COMPLICATIONS/DECLINE, AND WHEN TO CALL 911. [code = PT / VPK TEACHER TO INSTRUCT PATIENT/CAREGIVER ON RISK FOR HOSPITALIZATION/EMERGENCY ROOM VISITS, TEACH SIGNS AND SYMPTOMS THAT PUT PATIENT AT RISK, WHEN TO NOTIFY NURSE/PHYSICIAN OF COMPLICATIONS/DECLINE, AND WHEN TO CALL 911.] Future Scheduled Test PT TO ASSE SS / VPK TEACHER TO MONITOR CARDIO/RESPIRATORY SYSTEM; AND NOTIFY THE PHYSICIAN AND/OR THE RN CLINICAL CUSTOMER PROJECT MANAGER FOR PHYSICIAN NOTIFICATION FOR EARLY SIGNS AND SYMPTOMS OF EXACERBATION OR DETERIORATION. [code = PT TO ASSESS / VPK TEACHER TO MONITOR CARDIO/RESPIRATORY SYSTEM; AND NOTIFY THE PHYSICIAN AND/OR THE RN CLINICAL CUSTOMER PROJECT MANAGER FOR PHYSICIAN NOTIFICATION FOR EARLY SIGNS AND SYMPTOMS OF EXACERBATION OR DETERIORATION.] Future Scheduled Test PT / VPK TEACHER T O MONITOR AND EDUCATE ON OXYGEN SATURATION DURING ADLS/IADLS, NOTIFY PHYSICIAN AND/OR THE RN CLINICAL CUSTOMER PROJECT MANAGER FOR PHYSICIAN NOTIFICATION AND IF O2 SATS BELOW PHYSICIAN ORDERED PARAMETERS AFTER 10 MIN OF REST [code = PT / VPK TEACHER TO MONITOR AND EDUCATE ON OXYGEN SATURATION DURING ADLS/IADLS, NOTIFY PHYSICIAN AND/OR THE RN CLINICAL CUSTOMER PROJECT MANAGER FOR PHYSICIAN NOTIFICATION AND IF O2 SATS BELOW PHYSICIAN ORDERED PARAMETERS AFTER 10 MIN OF REST] Future Scheduled Test SKILLED NU RSING TO EVALUATE FOR PATHOLOGY MANAGEMENT [code = CUSTODIAL TO EVALUATE FOR PATHOLOGY MANAGEMENT ] Goal 2025-04-15 Patient Goal - I NDEPENDENCE WITH FUNCTIONAL ACTIVITIES WITHIN HOME Goal Provider Goal - Goal Provider Goal - PT STG: PATIENT WILL DEMONSTRATE IMPROVED FUNCTIONAL STRENGTH EVIDENCED BY FIVE TIMES SIT TO STAND TEST (CUT SCORE >12 SECONDS INDICATES AN INCREASED FALL RISK) IMPROVING FROM 38 SECONDS TO LESS THAN OR EQUAL TO 32 SECONDS WITHIN 4 WEEKS IN ORDER TO DECREASE FALL RISK PT LTG: PATIENT WILL DEMONSTRATE IMPROVED FUNCTIONAL STRENGTH EVIDENCED BY FIVE TIMES SIT TO STAND TEST (CUT SCORE >12 SECONDS INDICATES AN INCREASED FALL RISK) IMPROVING FROM 38 SECONDS TO LESS THAN OR EQUAL TO 12 SECONDS WITHIN 8 WEEKS IN ORDER TO DECREASE FALL RISK PT LTG: PATIENT WILL DEMONSTRATE INDEPENDENCE AND COMPLIANCE WITH HEP WITHIN 4 WEEKS Goal Provider Goal - PT STG: PATIENT WILL DEMONSTRATE REDUCED FALL RISK EVIDENCED BY TUG TEST (CUT SCORE >11 SECONDS INDICATES INCREASED FALL RISK) IMPROVING FROM 36 SECONDS TO LESS THAN OR EQUAL TO 30 SECONDS WITHIN 4 WEEKS PT LTG: PATIENT WILL DEMONSTRATE REDUCED FALL RISK EVIDENCED BY TUG TEST (CUT SCORE >11 SECONDS INDICATES INCREASED FALL RISK) IMPROVING FROM 36 SECONDS TO LESS THAN OR EQUAL TO 20 SECONDS WITHIN 8 WEEKS Goal Provider Goal - PT STG: PATIENT WILL DEMONSTRATE IMPROVED 6 MINUTE WALK TEST AMBULATION FROM 75 FT CGA TO 150 FT SBA WITH APPROPRIATE AD WITHIN 4 WEEKS. PT LTG: PATIENT WILL DEMONSTRATE IMPROVED 6 MINUTE WALK TEST AMBULATION FROM 75 FT CGA TO 300 FT IND WITH APPROPRIATE AD WITHIN 8 WEEKS. Goal Provider Goal - PT LTG: PATIENT WILL DEMONSTRATE IMPROVED ABILITY TO PERFORM SIT TO/FROM STAND TRANSFERS TO REDUCE THE RISK OF SKIN BREAKDOWN AND REDUCE FALL RISK FROM CGA TO IND WITHIN 8 WEEKS Goal Provider Goal - PT LTG: PATIENT/CAREGIVER WILL DEMONSTRATE ADHERENCE TO FALL REDUCTION SELF-MANAGEMENT AND REDUCING FALL RISK FACTORS TO MINIMIZE FALL RISK BY END OF EPISODE. Goal Provider Goal - PT GOAL: PATIENT/CAREGIVER WILL VERBALIZE UNDERSTANDING OF SIGNS AND SYMPTOMS THAT PUT THE PATIENT AT RISK FOR HOSPITALIZATION /EMERGENCY ROOM VISITS, WHEN TO NOTIFY NURSE/PHYSICIAN OF COMPLICATIONS/DECLINE AND WHEN TO CALL 911. Goal Provider Goal - PT LTG: PATIENT WILL NOT EXPERIENCE CARDIAC OR RESPIRATORY COMPLICATIONS THROUGHOUT THE EPISODE OF CARE. Goal Provider Goal - PT LTG: PATIENT WILL MAINTAIN OXYGEN SATURATION WITHIN PHYSICIAN ORDERED PARAMETERS THROUGHOUT EPISODE OF CARE. Goal Provider Goal - Reason for Visit INDEPENDENT WITH USE OF ASSISTIVE DEVICE Encounters Start Date/Time End Date/Time Encounter Type Admission Type Attending [facility] Care Department Encounter ID Discharge Date Discharge Status Discharge Condition Discharge Reason Percent Goals Met 2025-03-03 00:00:00 2025-04-15 00:00:00 Outpatient SREEDHAR ANAND [facility] [id number] 2025-04-15 00:00:00 DISCHARGE TO HOME OR SELF CARE INDEPENDEN T WITH USE OF ASSISTIVE DEVICE HH - OTHER (PROVIDE DETAILS IN COORD NOTE) 100.00
--- OUTSIDE RECORDS SUMMARY | 2025-04-14 20:00 | XMS_ITS | Clinical Summary ---
Author Organization Unknown Care Team Providers Care Paper Cleaner Name Role Phone SOFÍA ARIAS, MADELAINE Unavailable Unavailable KATHI PT, SREEDHAR Unavailable Unavailable ZULAY COMPLEX CARE NURSE PRACTITIONER, KAYLIN Unavailable Unavailable LUCY OT, LUCY Unavailable Unavailable Payers Payer Name Policy Type Policy Number Effective Date Expira tion Date PORFIRIOAUTH [id number] Problems Condition Name Condition Details Condition Category Status Onset Date Resolution Date Last Treatment Date Treating Clinician Comments HEART FAILURE, UNSPECIFIED Active 02-10 00:00: 00 ATHSCL HEART DISEASE OF [place] CORONARY ARTERY W/O ANG PCTRS Active 02-10 [...] Y BYPASS GRAFT Active 10-06 00:00: 00 GROUP 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 (CURRENT) USE OF INSULIN Active 02-10 00:00: 00 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 Active 02-10 [...] 2023-10 00:00: 00 03-03 00:00 :00 No [id number] DIURETIC 1 tablet NEEDED 1 tablet NEEDED (route: oral) Med Classific ation: Cardiovas cular Therapy Agents Adult Low Dose Aspirin 81 mg tablet,maria fernanda yed release 03-08 00:00: 00 03-03 00:00 :00 No [id number] BLOOD THINNER 1 tablet DAILY 1 tablet DAILY (route: oral) Med Classific ation: Hematolog ical Agents atorvastati n 20 mg tablet 04-05 00:00: 00 03-03 00:00 :00 No [id number] HYPERLIPIDE CHARLIE 1 tablet BEDTIME 1 tablet BEDTIME (route: oral) Med Classific ation: Cardiovas cular Therapy Agents ferrous sulfate 324 mg (65 mg iron) tablet,maria fernanda yed release 04-05 00:00: 00 Yes [id number] SUPPLEMENT 1 tablet DAILY 1 tablet DAILY (route: oral) Med Classific ation: Electroly te Balance-N utritiona l Products finasteride 5 mg tablet 04-05 00:00: 00 03-03 00:00 :00 No [id number] BPH 1 tablet DAILY 1 tablet DAILY (route: oral) Med Classific ation: Genitouri nary Therapy hydralazine 50 mg tablet 04-05 00:00: 00 11-05 00:00 :00 No [id number] HYPERTENSIO N 1 tablet EVERY 8 HOURS 1 tablet EVERY 8 HOURS (route: oral) Med Classific ation: Cardiovas cular Therapy Agents insulin lispro (U-100) 100 unit/mL subcutaneou s pen 04-05 00:00: 00 03-03 00:00 :00 No [id number] DIABETES 1 unit 3 TIMES DAILY 1 unit 3 TIMES DAILY (route: [facility]) Med Classific ation: Endocrine isosorbide dinitrate 10 mg tablet 04-05 00:00: 00 03-03 00:00 :00 No [id number] HYPERTENSIO N 1 tablet EVERY 8 HOURS 1 tablet EVERY 8 HOURS (route: oral) Med Classific ation: Cardiovas cular Therapy Agents Lantus Solostar U-100 Insulin 100 unit/mL (3 mL) [facility] 04-05 00:00: 00 Yes [id number] DIABETES 27 unit BEDTIME 27 unit BEDTIME (route: [facility]) Med Classific ation: Endocrine levothyroxi ne 75 mcg tablet 04-05 00:00: 00 03-03 00:00 :00 No [id number] HYPOTHYROID 1 tablet DAILY 1 tablet DAILY (route: oral) Med Classific ation: Endocrine melatonin 3 mg tablet 04-05 00:00: 00 Yes [id number] INSOMNIA 1 tablet BEDTIME 1 tablet BEDTIME (route: oral) Med Classific ation: Central Nervous System Agents Arthritis Pain Relief (acetaminop hen) ER 650 mg tablet,exte nd release 11-03 00:00: 03-03 00:00 :00 No [id number] PAIN 1 tablet EVERY 8 HOURS 1 tablet EVERY 8 HOURS (route: oral) Med Classific ation: Analgesic , Anti-infl ammatory or Antipyret ic carvedilol 3.125 mg tablet 11-03 00:00: 00 03-03 00:00 :00 No [id number] CHF 1 tablet 2 TIMES DAILY 1 tablet 2 TIMES DAILY (route: oral) Med Classific ation: Cardiovas cular Therapy Agents cholecalcif vaibhav (vitamin D3) 1,250 mcg (50,000 unit) tablet 11-03 00:00: 00 Yes [id number] SUPPLEMENT 1 tablet DAILY 1 tablet DAILY (route: oral) Med Classific ation: Electroly te Balance-N utritiona l Products clopidogrel 75 mg tablet 11-03 00:00: 00 Yes [id number] BLOOD THINNER 1 tablet DAILY 1 tablet DAILY (route: oral) Med Classific ation: Hematolog ical Agents Jardiance 10 mg tablet 11-03 00:00: 00 03-03 00:00 :00 No [id number] DIABETES 1 tablet DAILY 1 tablet DAILY (route: oral) Med Classific ation: Endocrine omeprazole 40 mg capsule,del ayed release 11-03 00:00: 00 Yes [id number] GI 1 capsule DAILY 1 capsule DAILY (route: oral) Med Classific ation: Gastroint estinal Therapy Agents atorvastati n 40 mg tablet 02-22 00:00: 00 Yes [id number] CHOLESTEROL 1 tablet BEDTIME 1 tablet BEDTIME (route: oral) Med Classific ation: Cardiovas cular Therapy Agents acetaminoph en 500 mg tablet 03-03 00:00: 00 Yes [id number] PAIN 1 tablet EVERY 6 HOURS 1 tablet EVERY 6 HOURS (route: oral) Med Classific ation: Analgesic , Anti-infl ammatory or Antipyret ic amiodarone 200 mg tablet 03-03 00:00: 00 Yes [id number] BLOOD PRESSURE 1 tablet 2 TIMES DAILY 1 tablet 2 TIMES DAILY (route: oral) Med Classific ation: Cardiovas cular Therapy Agents bumetanide 2 mg tablet 03-03 00:00: 00 Yes [id number] CHF 1 tablet 2 TIMES DAILY 1 tablet 2 TIMES DAILY (route: oral) Med Classific ation: Cardiovas cular Therapy Agents Humalog KwikPen (U-100) Insulin 100 unit/mL subcutaneou s 03-03 00:00: 00 Yes [id number] T2DM 5 unit 2 TIMES DAILY 5 unit 2 TIMES DAILY (route: [facility]) Med Classific ation: Endocrine hydralazine 10 mg tablet 03-03 00:00: 00 Yes [id number] BLOOD PRESSURE 2 tablet 3 TIMES DAILY 2 tablet 3 TIMES DAILY (route: oral) Med Classific ation: Cardiovas cular Therapy Agents isosorbide dinitrate 20 mg tablet 03-03 00:00: 00 Yes [id number] BLOOD PRESSURE 1 tablet 3 TIMES DAILY 1 tablet 3 TIMES DAILY (route: oral) Med Classific ation: Cardiovas cular Therapy Agents levothyroxi ne 88 mcg tablet 03-03 00:00: 00 Yes [id number] THYROID 1 tablet DAILY 1 tablet DAILY (route: oral) Med Classific ation: Endocrine Xarelto 15 mg tablet 03-03 00:00: 00 Yes [id number] BLOOD THINNER 1 tablet DAILY 1 tablet [...] TO EVALUATE, OBSERVE / ASSESS, AND MONITOR, COMPLEX CARE NURSE PRACTITIONER TO OBSERVE AND MONITOR, PROVIDE SKILLED THERAPEUTIC INTERVENTION, ACTIVITY, EDUCATION, AND TRAINING TO ADDRESS; [code = AGENCY MAY PERFORM A RESUMPTION OF CARE VISIT FOLLOWING ANY HOSPITAL ADMISSION. PT TO EVALUATE, OBSERVE / ASSESS, AND MONITOR, COMPLEX CARE NURSE PRACTITIONER TO OBSERVE AND MONITOR, PROVIDE SKILLED THERAPEUTIC INTERVENTION, ACTIVITY, EDUCATION, AND TRAINING TO ADDRESS;] Future Scheduled Test THERAPEUTI C EXERCISES AND ESTABLISHING A HOME EXERCISE PROGRAM (PT/COMPLEX CARE NURSE PRACTITIONER) [code = THERAPEUTIC EXERCISES AND ESTABLISHING A HOME EXERCISE PROGRAM (PT/COMPLEX CARE NURSE PRACTITIONER)] Future Scheduled Test NEUROMUSCU LAR RE-EDUCATION / BALANCE / POSTURAL CONTROL (PT) [code = NEUROMUSCULAR RE-EDUCATION / BALANCE / POSTURAL CONTROL (PT)] Future Scheduled Test PT/COMPLEX CARE NURSE PRACTITIONER TO PROVIDE GAIT TRAINING FOR IMPROVED MOBILITY AND /OR TO NORMALIZE GAIT PATTERN [code = PT/COMPLEX CARE NURSE PRACTITIONER TO PROVIDE GAIT TRAINING FOR IMPROVED MOBILITY AND /OR TO NORMALIZE GAIT PATTERN] Future Scheduled Test SIT TO/FRO M STAND TRANSFERS (PT/COMPLEX CARE NURSE PRACTITIONER) [code = SIT TO/FROM STAND TRANSFERS (PT/COMPLEX CARE NURSE PRACTITIONER)] Future Scheduled Test PT/COMPLEX CARE NURSE PRACTITIONER TO IDENTIFY FALL RISK FACTORS; EDUCATE THE PATIENT/CAREGIVER ON WAYS TO REDUCE FALL RISK FACTORS AND ESTABLISH HOME EXERCISE PROGRAM TO MINIMIZE FALL RISK. MAY TEACH THE PATIENT FLOOR RECOVERY WHEN CLINICALLY APPROPRIATE [code = PT/COMPLEX CARE NURSE PRACTITIONER TO IDENTIFY FALL RISK FACTORS; EDUCATE THE PATIENT/CAREGIVER ON WAYS TO REDUCE FALL RISK FACTORS AND ESTABLISH HOME EXERCISE PROGRAM TO MINIMIZE FALL RISK. MAY TEACH THE PATIENT FLOOR RECOVERY WHEN CLINICALLY APPROPRIATE] Future Scheduled Test PT / COMPLEX CARE NURSE PRACTITIONER T O INSTRUCT PATIENT/CAREGIVER ON RISK FOR HOSPITALIZATION/EMERGENCY ROOM VISITS, TEACH SIGNS AND SYMPTOMS THAT PUT PATIENT AT RISK, WHEN TO NOTIFY NURSE/PHYSICIAN OF COMPLICATIONS/DECLINE, AND WHEN TO CALL 911. [code = PT / COMPLEX CARE NURSE PRACTITIONER TO INSTRUCT PATIENT/CAREGIVER ON RISK FOR HOSPITALIZATION/EMERGENCY ROOM VISITS, TEACH SIGNS AND SYMPTOMS THAT PUT PATIENT AT RISK, WHEN TO NOTIFY NURSE/PHYSICIAN OF COMPLICATIONS/DECLINE, AND WHEN TO CALL 911.] Future Scheduled Test PT TO ASSE SS / COMPLEX CARE NURSE PRACTITIONER TO MONITOR CARDIO/RESPIRATORY SYSTEM; AND NOTIFY THE PHYSICIAN AND/OR THE RN CLINICAL SWITCHBOARD MECHANIC FOR PHYSICIAN NOTIFICATION FOR EARLY SIGNS AND SYMPTOMS OF EXACERBATION OR DETERIORATION. [code = PT TO ASSESS / COMPLEX CARE NURSE PRACTITIONER TO MONITOR CARDIO/RESPIRATORY SYSTEM; AND NOTIFY THE PHYSICIAN AND/OR THE RN CLINICAL SWITCHBOARD MECHANIC FOR PHYSICIAN NOTIFICATION FOR EARLY SIGNS AND SYMPTOMS OF EXACERBATION OR DETERIORATION.] Future Scheduled Test PT / COMPLEX CARE NURSE PRACTITIONER T O MONITOR AND EDUCATE ON OXYGEN SATURATION DURING ADLS/IADLS, NOTIFY PHYSICIAN AND/OR THE RN CLINICAL SWITCHBOARD MECHANIC FOR PHYSICIAN NOTIFICATION AND IF O2 SATS BELOW PHYSICIAN ORDERED PARAMETERS AFTER 10 MIN OF REST [code = PT / COMPLEX CARE NURSE PRACTITIONER TO MONITOR AND EDUCATE ON OXYGEN SATURATION DURING ADLS/IADLS, NOTIFY PHYSICIAN AND/OR THE RN CLINICAL SWITCHBOARD MECHANIC FOR PHYSICIAN NOTIFICATION AND IF O2 SATS BELOW PHYSICIAN ORDERED PARAMETERS AFTER 10 MIN OF REST] Future Scheduled Test SKILLED NU RSING TO EVALUATE FOR PATHOLOGY MANAGEMENT [code = ASSISTED TO EVALUATE FOR PATHOLOGY MANAGEMENT ] Goal [...] End Date/Time Encounter Type Admission Type Attending [facility] Care Department Encounter ID Discharge Date Discharge Status Discharge Condition Discharge Reason Percent Goals Met 2025-03-03 00:00:00 2025-04-15 00:00:00 Outpatient SREEDHAR ANAND [facility] [id number] 2025-04-15 00:00:00 DISCHARGE TO HOME OR SELF CARE INDEPENDEN T WITH USE OF ASSISTIVE DEVICE HH - OTHER (PROVIDE DETAILS IN COORD NOTE) 100.00
[2025-05-13 18:39] LABS: Alanine Aminotransferase 53 U/L (12-78); Albumin Level 4.2 g/dl (3.5-5.0); Albumin/Globulin Ratio 1.4 (1.1-1.8); Alkaline Phosphatase 368 U/L (38-126); Anion Gap 14.0 mEq/L (5-15); Aspartate Amino Transferase 44 U/L (17-59); Bilirubin,Total 0.4 mg/dl (0.2-1.3); Blood Urea Nitrogen 59 mg/dl (9-20); Calcium 9.5 mg/dl (8.4-10.2); Carbon Dioxide 28 mmol/L (22.0-30.0); Chloride 90 mmol/L (98-107); Creatinine,Serum 2.70 mg/dl (0.66-1.25); Estimated Glomerular Filt Rate 23 ml/min (>60); GFR (African American) 28 ML/MIN (>60); Globulin 3.1 g/dL (1.3-3.2); Potassium 5.0 mmoL/L (3.5-5.1); Sodium 127 mmol/L (136-145); Total Protein,Serum 7.3 g/dl (6.3-8.2)
[2025-05-13 18:47] LABS: Glucose 545 mg/dl (74-100)
[2025-05-13 19:07] LABS: Thyroid Stimulating Hormone 19.10 uIU/mL (0.465-4.68)
[2025-05-15 08:10] LABS: Triiodothyronine (T3) Free 1.7 pg/mL (2.0-4.4)
--- OUTSIDE RECORDS SUMMARY | 2025-05-16 11:00 | XMS_ITS ---
Author Name Auto Generated, Auto Generated Organization [facility] at[facility] Address [address] [place] [address] Phone [phone] Care Team Providers Care Double Bass Player Name Role Phone Eduar Velasco Unavailable [phone] Functional Status No Results Mental Status No [...]
--- OUTSIDE RECORDS SUMMARY | 2025-05-16 11:00 | XMS_ITS ---
Author Name Auto Generated, Auto Generated Organization [facility] Address [address] [place] [address] Phone [phone] Care Team Providers Care Hose Seamer Name Role Phone Eduar Velasco Unavailable [phone] Functional Status No Results Mental Status No [...]
--- OUTSIDE RECORDS SUMMARY | 2025-05-16 11:07 | XMS_ITS | Encounter Summary ---
Author Organization [employer] ([place], [place], [place], [place]) Address [address] [place] [address] Care Team Providers Care Convention Services Manager Name Role Phone Marielos Amaral KAYE Primary Care Provider Encounter Details Date Type Department Care Team (Late st Contact Info) Description 10/15/2019 Transcribed Document [facility] [place] [address] [place] [address] ProviderHaroldo MD [address] [place] [address] Social History Tobacco Use Types Packs/Day Years Used Date Smoking Tobacco: Never Assessed Sex and Gender Information Value Date Recorded Sex Assigned at Not on file Legal Sex Male 3:45 PM CDT Gender Identity Not on file Sexual Orientation Not on file documented as of this encounter Miscellaneous Notes * [employer] Conversion Note - Haroldo ProviderMD - 10/15/2019 2:00 AM WATER METER INSTALLER [employer] Windows Engineer Details Entered On: 10/15/2019 2:47 EST Performed On: 10/15/2019 2:00 EST by Kristofer Barr Rn Order Details Order Detail : N/A IV Order Detail : 1 Oxygen Order Detail : 0 Nurse Collect Order Detail : 1 Central Line Order Detail : No Arterial Line : No Kristofer Barr Rn - 10/15/2019 2:47 EST Electronically signed by Brittany [facility] Conversion Medical Assistant Per Diem Cerner at 01/24/2023 10:21 AM CDT documented in this encounter Plan of Treatment Not on file documented as of this encounter Visit Diagnoses Not on filedocumented in this encounter Care Teams Convention Services Manager Relationship Specialty Start Date End Date Marielos Amaral, CLERK ENTRY LEVEL [address] [place] [address] PCP - General Nurse Practitioner 08/18/23 documented as of this encounter
--- OUTSIDE RECORDS SUMMARY | 2025-05-16 11:07 | XMS_ITS | Encounter Summary ---
Author Organization [employer] ([place], [place], [place], [place]) Address [address] [place] [address] Care Team Providers Care Finish Machine Tender Name Role Phone Marielos Amaral KAYE Primary Care Provider Encounter Details Date Type Department Care Team (Late st Contact Info) Description 10/15/2019 Transcribed Document [facility] [place] [address] [place] [address] ProviderHaroldo MD [address] [place] [address] Social History Tobacco Use Types Packs/Day Years Used Date Smoking Tobacco: Never Assessed Sex and Gender Information Value Date Recorded Sex Assigned at Not on file Legal Sex Male 3:45 PM CDT Gender Identity Not on file Sexual Orientation Not on file documented as of this encounter Miscellaneous Notes * Cerner Conversion Note - Haroldo ProviderMD - 10/15/2019 3:30 PM COMPLIANCE TESTER On Going Discharge Planning Entered On: 10/15/2019 15:31 EST Performed On: 10/15/2019 15:30 EST by HARITHA BARRIOS Rn-Box FeederLead Consultant Progress Note Discharge Arrangements : Patient Post-Acute [...] Meeting Medical Necessity : Yes HARITHA BARRIOS Rn-Box Feeder - 10/15/2019 15:30 EST Narrative Progress Note Narrative Progress Note : Ongoing d/c planning, anticipate d/c home with spouse Enriqueta [phone]; [phone]. HARITHA BARRIOS Rn-Box Feeder - 10/15/2019 15:30 EST Electronically signed by Brittany [facility] Conversion Security Consultant Cerner at 01/24/2023 10:29 AM CDT documented in this encounter Plan of Treatment Not on file documented as of this encounter Visit Diagnoses Not on filedocumented in this encounter Care Teams Finish Machine Tender Relationship Specialty Start Date End Date Marielos Amaral, KAYE [address] [address] PCP - General Nurse Practitioner 08/18/23 documented as of this encounter
--- OUTSIDE RECORDS SUMMARY | 2025-05-16 11:07 | XMS_ITS | Encounter Summary ---
Author Organization [employer] ([place], [place], [place], [place]) Address [address] [place] [address] Care Team Providers Care Loader Helper Name Role Phone Marielos Amaral KAYE Primary Care Provider Encounter Details Date Type Department Care Team (Late st Contact Info) Description 10/15/2019 Transcribed Document [facility] [place] [address] [place] [address] ProviderHaroldo MD [address] [place] [address] Social History Tobacco Use Types Packs/Day Years Used Date Smoking Tobacco: Never Assessed Sex and Gender Information Value Date Recorded Sex Assigned at Not on file Legal Sex Male 3:45 PM CDT Gender Identity Not on file Sexual Orientation Not on file documented as of this encounter Miscellaneous Notes * Cerner Conversion Note - Haroldo ProviderMD - 10/15/2019 12:13 PM NURSE TRANSPLANT Treatment Intervention, PT Entered On: 10/17/2019 11:02 [...] ZACKARY HENDERSON, PT - 10/17/2019 10:56 EST Group Home Goals Ambulation LTG Grid Goal #1 Device [...] ZACKARY HENDERSON PT - 10/17/2019 10:56 EST [place] PT Charges PT Therap. Exercise 15 min : 1 ZACKARY HENDERSON PT - 10/17/2019 10:56 EST documented in this encounter Plan of Treatment Not on file documented as of this encounter Visit Diagnoses Not on filedocumented in this encounter Care Teams Loader Helper Relationship Specialty Start Date End Date Marielos Amaral APRN [address] [phone] PCP - General Nurse Practitioner 08/18/23 documented as of this encounter
--- OUTSIDE RECORDS SUMMARY | 2025-05-16 11:07 | XMS_ITS | Encounter Summary ---
Author Organization [employer] ([place], [place], [place], [place]) Address [address] [place] [address] Care Team Providers Care Banquet Captain Name Role Phone Munir Marielos RESTREPO Primary Care Provider Encounter Details Date Type Department Care Team (Late st Contact Info) Description 04/23/2022 Transcribed Document [facility] [place] [address] [place] [address] ProviderHaroldo MD [address] [place] [address] Social History Tobacco Use Types [...] Do you speak a language other than [place] at [facility]? Yes 10/30/2024 Do you [...] Health Plan: [employer] MEDICARE REPL Policy Number: [id number] Authorization Number: Insurance Primary Name : [employer] MEDICARE REPL Policy Number: [id number] Authorized Service Begin Date-Primary : 04/22/2022 EDT Historical Authorization Comments-Primary : No Authorization Comments Found KRISTINA GÓMEZ, LUIS - 04/23/2022 18:43 EDT Electronically signed by Brittany [facility] Conversion Heart Doctor Cerner at 01/24/2023 10:30 AM CDT documented in this encounter Plan of Treatment Not on file documented as of this encounter Visit Diagnoses Not on filedocumented in this encounter Care Teams Banquet Captain Relationship Specialty Start Date End Date Marielos Amaral WEASAND TRIMMER [address] [address] PCP - General Nurse Practitioner 08/18/23 documented as of this encounter
--- OUTSIDE RECORDS SUMMARY | 2025-05-16 11:07 | XMS_ITS | Encounter Summary ---
Author Organization [employer] ([place], [place], [place], [place]) Address [address] [place] [address] Care Team Providers Care Cleat Thrower Name Role Phone Marielos Amaral EXECUTIVE COACH Primary Care Provider Encounter Details Date Type Department Care Team (Late st Contact Info) Description 10/15/2019 Transcribed Document [facility] [place] [address] [place] [address] ProviderHaroldo MD [address] [place] [address] Social History Tobacco Use Types Packs/Day Years Used Date Smoking Tobacco: Never Assessed Sex and Gender Information Value Date Recorded Sex Assigned at Not on file Legal Sex Male 3:45 PM CDT Gender Identity Not on file Sexual Orientation Not on file documented as of this encounter Miscellaneous Notes * Cerner Conversion Note - Haroldo ProviderMD - 10/15/2019 12:18 PM BLEACH BOILER PACKER Patient: ZACKARY ANTOINE Age: 68 years Sex: [...] 5 mg oral tablet: 1 Tab, Oral, N36MYml, 60 Tab, 0 Refill(s) Toprol-XL 25 mg [...] tablet 5 mg = 1 Tab, Oral, [id number] Eliquis 5 mg oral tablet 5 mg [...] History of obstructive sleep apnea / [id number] [id number] / Confirmed, Active Problems (13) Angina Coronary [...] (OCT 14) Radiology Results (Last 48 hours) [id number] -- 10/14/2019 17:19 CR Chest 1 Vw [...] on filedocumented in this encounter Care Teams Cleat Thrower Relationship Specialty Start Date End Date Marielos Amaral, EXECUTIVE COACH [address] [address] PCP - General Nurse Practitioner 08/18/23 documented as of this encounter
--- OUTSIDE RECORDS SUMMARY | 2025-05-16 11:08 | XMS_ITS | Encounter Summary ---
Author Organization [employer] ([place], [place], [place], [place]) Address [address] [place] [address] Care Team Providers Care Cord Cutter Name Role Phone Munir Marielos RESTREPO Primary Care Provider Encounter Details Date Type Department Care Team (Late st Contact Info) Description 04/23/2022 Transcribed Document [facility] [place] [address] [place] [address] ProviderHaroldo MD [address] [place] [address] Social History Tobacco Use Types [...] Do you speak a language other than Surinamese at [facility]? Yes [...] - 04/23/2022 9:[address] [place] SCRAP WORKER Charges Entered On: 04/23/2022 9:26 EDT Performed On: 04/23/2022 9:21 EDT by STACIA BROWN, RAMONA Ricks SCRAP WORKER Charges Screen For Speech Therapy : 1 STACIA BROWN SLP - 04/23/2022 9:21 EDT documented in this encounter Plan of Treatment Not on file documented as of this encounter Visit Diagnoses Not on filedocumented in this encounter Care Teams Cord Cutter Relationship Specialty Start Date End Date Marielos Amaral, IMMIGRATION ASSOCIATE [address] [phone] PCP - General Nurse Practitioner 08/18/23 documented as of this encounter
--- OUTSIDE RECORDS SUMMARY | 2025-05-16 11:08 | XMS_ITS | Encounter Summary ---
Author Organization [employer] ([place], [place], [place], [place]) Address [address] [place] [address] Care Team Providers Care Silk Printer Name Role Phone Munir Marielos RESTREPO Primary Care Provider Encounter Details Date Type Department Care Team (Late st Contact Info) Description 04/23/2022 Transcribed Document [facility] [place] [address] [place] [address] ProviderHaroldo MD [address] [place] [address] Social History Tobacco Use Types [...] Do you speak a language other than Tunisian at [facility]? Yes 10/30/2024 Do you want [...] On: 04/23/2022 23:32 EDT by TYSHAWN RIGGINS, RN-Inside Sales Account Executive ED Care Management Progress Note Discharge Arrangements : Patient Post-Acute Information Patient Name: ZACKARY ANTOINE Gender: Male : [birth year] Age: 71 Years No Post-Acute Placement(s) Listed No Post-Acute Service(s) Listed No [place] Referral(s) Listed TYSHAWN RIGGINS, RN-Inside Sales Account Executive ED - 04/23/2022 23:32 EDT Narrative Progress Note Narrative Progress Note : Dx: a/c renal failure poa with metabolic acidosis, UTI, hyponatremia HPI: presents to [facility] with d/o weakness, sliding from bed [...] eval, lives home with , 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 CM attempted to meet with pt this evening for CM eval, but pt sleeping soundly. CM will need to f/u with pt for full CM eval and send referrals as appropriate, as pt will likely benefit from HH vs inpt rehab. TYSHAWN RIGGINS, RN-Inside Sales Account Executive ED - 04/23/2022 23:32 EDT documented in this encounter Plan of Treatment Not on file documented as of this encounter Visit Diagnoses Not on filedocumented in this encounter Care Teams Silk Printer Relationship Specialty Start Date End Date Marielos Amaral, SCIENTIST IMMUNOLOGY [address] [phone] PCP - General Nurse Practitioner 08/18/23 documented as of this encounter
--- OUTSIDE RECORDS SUMMARY | 2025-05-16 11:08 | XMS_ITS | Encounter Summary ---
Author Organization [employer] ([place], [place], [place], [place]) Address [address] [place] [address] Care Team Providers Care Hepatology Physician Name Role Phone Marielos Amaral KAYE Primary Care Provider Encounter Details Date Type Department Care Team (Late st Contact Info) Description 02/12/2019 Transcribed Document [facility] [place] [address] [place] [address] ProviderHaroldo MD [address] [place] [address] Social History Tobacco Use Types Packs/Day Years [...] on filedocumented in this encounter Care Teams Hepatology Physician Relationship Specialty Start Date End Date Marielos Amaral, FLOOR REFINISHER [address] [place] [address] PCP - General Nurse Practitioner 08/18/23 documented as of this encounter
--- OUTSIDE RECORDS SUMMARY | 2025-05-16 11:08 | XMS_ITS | Encounter Summary ---
Author Organization [employer] ([place], [place], [place], [place]) Address [address] [place] [address] Care Team Providers Care Adult And Pediatric Neurologist Name Role Phone Marielos Amaral BASKET MACHINE OPERATOR Primary Care Provider Encounter Details Date Type Department Care Team (Late st Contact Info) Description 04/14/2019 Transcribed Document [facility] [place] Family Medicine [address] [place] [address] ProviderHaroldo MD [address] [place] [address] Social History Tobacco Use Types Packs/Day Years Used Date Smoking Tobacco: Never Assessed Sex and Gender Information Value Date Recorded Sex Assigned at Not on file Legal Sex Male 3:45 PM CDT Gender Identity Not on file Sexual Orientation Not on file documented as of this encounter Miscellaneous Notes * Cerner Conversion Note - Haroldo ProviderMD - 04/14/2019 5:07 PM CDT [address] [address] ELINA ZACKARY COOK :1950 Visit Time:04/14/2019 What to do next Your Diagnosis Valenzueal's esophagus with dysplasia, unspecified, Valenzuela's esophagus with [...] DOCKERY MD-GAE When Within As needed Where: [address] [place] [address] Medications What How Much When Instructions Next [...] Assistance with quitting is available by contacting 6-224-VRLHNOW. This is a free resource providing counseling, support, and referral. Or you may contact your personal physician. [place] Suicide Prevention Lifeline: The National Suicide Prevention [...] was given the opportunity to ask questions. Patient/Leather Heel Breaster Name: Patient/Leather Heel Breaster Signature: Relationship to Patient: Clinician/Hospital Leather Heel Breaster Signature: Date: Electronically signed by Brittany, [facility] Conversion Medical Record Coder [employer] at 01/24/2023 10:19 AM CDT documented in this encounter Plan of Treatment Not on file documented as of this encounter Visit Diagnoses Not on filedocumented in this encounter Care Teams Adult And Pediatric Neurologist Relationship Specialty Start Date End Date Marielos Amaral APRN [address] [address] PCP - General Nurse Practitioner 08/18/23 documented as of this encounter
--- OUTSIDE RECORDS SUMMARY | 2025-05-16 11:08 | XMS_ITS | Encounter Summary ---
Author Organization [employer] ([place], [place], [place], [place]) Address [address] [place] [address] Care Team Providers Care Staffing Recruiter Name Role Phone Marielos Amaral KAYE Primary Care Provider Encounter Details Date Type Department Care Team (Late st Contact Info) Description 10/14/2019 Transcribed Document [facility] [place] Family Medicine [address] [place] [address] ProviderHaroldo MD [address] [place] [address] Social History Tobacco Use Types Packs/Day Years Used Date Smoking Tobacco: Never Assessed Sex and Gender Information Value Date Recorded Sex Assigned at Not on file Legal Sex Male 3:45 PM CDT Gender Identity Not on file Sexual Orientation Not on file documented as of this encounter Miscellaneous Notes * Cerner Conversion Note - Haroldo ProviderMD - 10/14/2019 1:50 PM MEATCUTTER [place] Suicide Severity Rating Scale (C-SSRS) Entered On: 10/14/2019 15:40 EST Performed On: 10/14/2019 14:00 EST by Ivone Damon RN [place] Suicide Severity Rating Scale (C-SSRS) CSSRS Past Month Wish to be : No CSSRS Past Month Suicidal Thoughts : No CSSRS Lifetime Suicide Behavior : No Suicide Severity Rating Score : 0 Suicide Severity Rating : No Additional Care Required at this time Ivone Damon RN - 10/14/2019 15:38 EST Electronically signed by Brittany [facility] Conversion Blunger Loader Cerner at 01/24/2023 10:18 AM CDT documented in this encounter Plan of Treatment Not on file documented as of this encounter Visit Diagnoses Not on filedocumented in this encounter Care Teams Staffing Recruiter Relationship Specialty Start Date End Date Marielos Amaral, LABORATORY ASSISTANT [address] [address] PCP - General Nurse Practitioner 08/18/23 documented as of this encounter
--- OUTSIDE RECORDS SUMMARY | 2025-05-16 11:08 | XMS_ITS | Encounter Summary ---
Author Organization [employer] ([place], [place], [place], [place]) Address [address] [place] [address] Care Team Providers Care Profiler Hand Name Role Phone Munir Marielos RESTREPO Primary Care Provider [phone] Encounter Details Date Type Department Care Team (Late st Contact Info) Description 04/23/2022 Transcribed Document [facility] [place] [address] [place] [address] ProviderHaroldo MD [address] [place] [address] Social History Tobacco Use [...] Do you speak a language other than Irish at [facility]? Yes 10/30/2024 Do you want [...] FANY FREEMAN, PT - 04/25/2022 11:53 EDT Technology Instructor Goals Mobility/Bed Mobility LTG PT Grid Goal [...] FANY FREEMAN PT - 04/25/2022 11:58 EDT documented in this encounter Plan of Treatment Not on file documented as of this encounter Visit Diagnoses Not on filedocumented in this encounter Care Teams Profiler Hand Relationship Specialty Start Date End Date Marielos Amaral, KAYE [address] [address] PCP - General Nurse Practitioner 08/18/23 documented as of this encounter
--- OUTSIDE RECORDS SUMMARY | 2025-05-16 11:08 | XMS_ITS | Encounter Summary ---
Author Organization [employer] ([place], [place], [place], [place]) Address [address] [place] [address] Care Team Providers Care Senior Quality Assurance Specialist Name Role Phone Munir Marielos RESTREPO Primary Care Provider Encounter Details Date Type Department Care Team (Late st Contact Info) Description 04/22/2022 Transcribed Document [facility] [place] Family Medicine [address] [place] [address] ProviderHaroldo MD [address] [place] [address] Social History Tobacco Use Types [...] speak a language other than [place] at [facility]? Yes 10/30/2024 [...] edema. No cyanosis. Peripheral pulses are palpable. LOCKSTITCH CUP SETTER: No focal deficit noted grossly. Cranial nerves [...] We will follow along with other physicians. /[id number] Sarika Umana MD MA/JEAN PAUL / MA / MODL /[id number] Electronically signed by Brittany, [facility] Conversion Beach Patrol Lieutenant Cerner at 01/24/2023 10:41 AM CDT documented in this encounter Plan of Treatment Not on file documented as of this encounter Visit Diagnoses Not on filedocumented in this encounter Care Teams Senior Quality Assurance Specialist Relationship Specialty Start Date End Date Marielos Amaral, LICENSING ENGINEER [address] [address] PCP - General Nurse Practitioner 08/18/23 documented as of this encounter
--- OUTSIDE RECORDS SUMMARY | 2025-05-16 11:08 | XMS_ITS | Encounter Summary ---
Author Organization [employer] ([place], [place], [place], [place]) Address [address] [place] [address] Care Team Providers Care Geological Engineering Teacher Name Role Phone Marielos Amaral KAYE Primary Care Provider [phone] Encounter Details Date Type Department Care Team (Late st Contact Info) Description 10/14/2019 Transcribed Document [facility] [place] [address] [place] [address] ProviderHaroldo MD [address] [place] [address] Social History Tobacco Use Types Packs/Day Years Used Date Smoking Tobacco: Never Assessed Sex and Gender Information Value Date Recorded Sex Assigned at Not on file Legal Sex Male 3:45 PM CDT Gender Identity Not on file Sexual Orientation Not on file documented as of this encounter Miscellaneous Notes * Cerner Conversion Note - Haroldo ProviderMD - 10/14/2019 4:59 PM RADIOLOGY TEACHER Evaluation, Physical Therapy Entered On: 10/15/2019 11:08 [...] EST Lower Extremity RLE Active ROM : [facility] LLE Active ROM : [facility] EHSAN CONTRERAS, PT 10/15/2019 12:02 EST [...] EHSAN CONTRERAS, PT - 10/15/2019 12:02 EST Nursing Home Goals Ambulation LTG Grid Goal #1 [...] EHSAN CONTRERAS, PT - 10/15/2019 12:02 EST Diamond PT Charges PT Eval Moderate Complexity : 1 EHSAN CONTRERAS, PT - 10/15/2019 12:02 EST documented in this encounter Plan of Treatment Not on file documented as of this encounter Visit Diagnoses Not on filedocumented in this encounter Care Teams Geological Engineering Teacher Relationship Specialty Start Date End Date Marielos Amaral, KAYE [address] [address] PCP - General Nurse Practitioner 08/18/23 documented as of this encounter
--- OUTSIDE RECORDS SUMMARY | 2025-05-16 11:08 | XMS_ITS | Encounter Summary ---
Author Organization [employer] ([place], [place], [place], [place]) Address [address] [place] [address] Care Team Providers Care Online Health And Fitness Coach Name Role Phone Marielos Amaral APRN Primary Care Provider Encounter Details Date Type Department Care Team (Late st Contact Info) Description 04/14/2019 Transcribed Document [facility] [place] Family Medicine [address] [place] [address] ProviderHaroldo MD [address] [place] [address] Social History Tobacco Use Types Packs/Day Years [...] ELINAZACKARY /Sex: 1950 Male Med Rec #: [id number] Physician: PRINCESS DOCKERY MD-GAE Financial #: [id number] Pt. Type: O Room/Bed: Admit/Disch: 04/14/19 14:02:00 - Institution: [facility] PACU Case Times Entry 1 In PACU I 04/14/19 16:45:00 Ready for PACU 04/14/19 17:09:00 Discharge Discharge from PACU 04/14/19 17:10:00 I [facility] PACU Case Times Audit 04/14/19 17:10:08 Director Of Physical Therapy: ZAC Modifier: BICKNEA <+> 1 Ready for PACU Discharge <+> 1 Discharge from PACU I Finalized By: Ivone Humphreys, RN Document Signatures Signed By: Ivone Humphreys, LUIS 04/14/19 17:19 documented in this encounter Plan of Treatment Not on file documented as of this encounter Visit Diagnoses Not on filedocumented in this encounter Care Teams Online Health And Fitness Coach Relationship Specialty Start Date End Date Marielos Amaral, HIMS CLERK [address] [phone] PCP - General Nurse Practitioner 08/18/23 documented as of this encounter
--- OUTSIDE RECORDS SUMMARY | 2025-05-16 11:08 | XMS_ITS | Encounter Summary ---
Author Organization [employer] ([place], [place], [place], [place]) Address [address] [place] [address] Care Team Providers Care Climatology Professor Name Role Phone Munir Marielos RESTREPO Primary Care Provider Encounter Details Date Type Department Care Team (Late st Contact Info) Description 04/23/2022 Transcribed Document [facility] [place] Family Medicine [address] [place] [address] ProviderHaroldo MD [address] [place] [address] Social History Tobacco Use Types [...] Do you speak a language other than [place] at [facility]? Yes 10/30/2024 Do you want help [...] Yes LAURAPAULO, GUNNAR/Melvin - 04/24/2022 15:57 EDT [facility] Goals, OT Grooming LTG Grid Goal #1 [...] Plan for Treatment : See OT goals. PAULO LAURA OTR/Melvin - 04/24/2022 15:57 EDT Pain [...] PAULO LAURA OTR/Melvin - 04/24/2022 15:57 EDT [place] OT Charges OT Ther Activities Ea 15 Min : 1 PAULO LAURA OTR/Melvin - 04/24/2022 15:57 EDT Electronically signed by Brittany [facility] Conversion Senior Sales Director Cerner at 01/24/2023 10:39 AM CDT documented in this encounter Plan of Treatment Not on file documented as of this encounter Visit Diagnoses Not on filedocumented in this encounter Care Teams Climatology Professor Relationship Specialty Start Date End Date Marielos Amaral, KAYE [address] [place] [address] PCP - General Nurse Practitioner 08/18/23 documented as of this encounter
--- OUTSIDE RECORDS SUMMARY | 2025-05-16 11:08 | XMS_ITS | Encounter Summary ---
Author Organization [employer] ([place], [place], [place], [place]) Address [address] [place] [address] Care Team Providers Care Lamp Shades Supervisor Name Role Phone Marielos Amaral KAYE Primary Care Provider Encounter Details Date Type Department Care Team (Late st Contact Info) Description 04/14/2019 Transcribed Document [facility] [place] [address] [place] [address] ProviderHaroldo MD [address] [place] [address] Social History Tobacco Use Types Packs/Day Years [...] Source : Stated Height Entry Format : [place] Height, Feet : 5 ft(Converted to: 152 cm, 60 Inch) Height, Inches : 9 Inch(Converted to: 0 ft 9 Inch, 22.86 cm) Clinical Height : 175.26 cm Weight Source : Standing scale Weight Entry Format : [place] Clinical Dosing Weight : 79.66 kg Weight, Pounds : 175 lb Weight, Ounces : 4 oz Body Surface Area (BSA) : 1.95 m2 Body Mass Index : 25.9 kg/m2 (HI) [place] Body Weight : 70 kg MIKO GALLAGHER [...] Daughter Legal Guardian : No Support Person/Patient Client Manager : Yes Support Person/Pt Rep Name : Enriqueta - Contact Password : peanut Support Person/Pt Rep Contact Information : [phone] Want Family/Rep/Phys Notified of Admit : Yes [...] Obtained From : Patient Primary Language : Maldivian Communication Barrier : None Objects to Sharing [...] Scale Risk Level : 0-24 Low Risk [place] Fall Interventions : Adequate lighting, Bed in [...] of the form. Electronically signed by Brittany [facility] Conversion Senior Hr Business Partner Cerner at 01/24/2023 10:19 AM CDT documented in this encounter Plan of Treatment Not on file documented as of this encounter Visit Diagnoses Not on filedocumented in this encounter Care Teams Lamp Shades Supervisor Relationship Specialty Start Date End Date Marielos Amaral, ADVERTISING AGENCY MANAGER [address] [place] [address] PCP - General Nurse Practitioner 08/18/23 documented as of this encounter
--- OUTSIDE RECORDS SUMMARY | 2025-05-16 11:08 | XMS_ITS | Referral Summary ---
Author Organization [employer] ([place], [place], [place], [place]) Address [address] [place] [address] Care Team Providers Care Tax Consultant Name Role Phone AmaralMarielos roque KAYE Primary Care Provider Allergies Active Allergy Reactions Criticality Noted Date [...] Immunizations Name Administration Dates Next Due INFLUENZA(FLUCELVAX)_0.5 mL(6MOS+)TRI(YQB501) Social History Tobacco Use Types Packs/Day Years [...] Do you speak a language other than Afghan at [facility]? Yes [...] 2:53 PM EST 09/15/2024 3:10 PM EST [facility] LABORATORY - 09/15/2024 4:51 PM EST [...] [facility]OR[facility]ORY [address] [place] [address], [facility] [phone] from Last 3 Months or Most Recently Relevant to Health Maintenance Insurance [facility] Advance Directives For more information, please contact: [phone] * Full Code (Latest Code Status on [...] Enriqueta Danilo Spouse Healthcare Decision-Maker Care Teams Tax Consultant Relationship Specialty Start Date End Date Marielos Amaral, CARE ADMINISTRATIVE TECH [address] [place] [address] PCP - General Nurse Practitioner 08/18/23
--- OUTSIDE RECORDS SUMMARY | 2025-05-16 11:08 | XMS_ITS | Encounter Summary ---
Author Organization [employer] ([place], [place], [place], [place]) Address [address] [place] [address] Care Team Providers Care Paper Steamer Name Role Phone MunirMarlyMarielos KAYE Primary Care Provider Encounter Details Date Type Department Care Team (Late st Contact Info) Description 10/14/2019 Transcribed Document [facility] [place] Family Medicine [address] [place] [address] ProviderHaroldo MD [address] [place] [address] Social History Tobacco Use Types Packs/Day Years Used Date Smoking Tobacco: Never Assessed Sex and Gender Information Value Date Recorded Sex Assigned at Not on file Legal Sex Male 3:45 PM CDT Gender Identity Not on file Sexual Orientation Not on file documented as of this encounter Miscellaneous Notes * [employer]ner Conversion Note - Historical ProviderMD - 10/14/2019 8:26 PM STUDY ASSISTANT Consult Phone Call Documentation Entered On: 10/15/2019 8:29 EST Performed On: 10/14/2019 20:26 EST by ДМИТРИЙ JACK Phone Call for Consults Consult Phone Call/Page Attempt : First call Physician Requested for Consult : HERI LESLIE APRN Provider Service Notified Name : Cardiology ДМИТРИЙ JACK - 10/15/2019 8:28 EST Electronically signed by Brittany [facility] Conversion Statistical Machine Mechanic Cerner at 01/24/2023 10:46 AM CDT documented in this encounter Plan of Treatment Not on file documented as of this encounter Visit Diagnoses Not on filedocumented in this encounter Care Teams Paper Steamer Relationship Specialty Start Date End Date Marielos Amaral, REGULATORY LEAD [address] [place] [address] PCP - General Nurse Practitioner 08/18/23 documented as of this encounter
--- OUTSIDE RECORDS SUMMARY | 2025-05-16 11:08 | XMS_ITS | Encounter Summary ---
Author Organization [employer] ([place], [place], [place], [place]) Address [address] [place] [address] Care Team Providers Care Watershed Tender Name Role Phone AmaralMarielos roque KAYE Primary Care Provider Encounter Details Date Type Department Care Team (Late st Contact Info) Description 10/14/2019 Transcribed Document [facility] Family Medicine [address] [place] [address] ProviderHaroldo MD [address] [place] [address] Social History Tobacco Use Types Packs/Day Years Used Date Smoking Tobacco: Never Assessed Sex and Gender Information Value Date Recorded Sex Assigned at Not on file Legal Sex Male 3:45 PM CDT Gender Identity Not on file Sexual Orientation Not on file documented as of this encounter Miscellaneous Notes * [employer]ner Conversion Note - Haroldo ProviderMD - 10/14/2019 5:17 PM LOCAL AREA NETWORK ADMINISTRATOR Admission History, Adult Entered On: 10/14/2019 18:33 [...] Spouse Legal Guardian : No Support Person/Patient Shear Scrapman : Yes Support Person/Pt Rep Name : Enriqueta - Contact Password : peanut Support Person/Pt Rep Contact Information : [phone] Want Family/Rep/Phys Notified of Admit : No [...] From : Patient, Spouse Primary Language : Cypriot Preferred Communication Mode : Verbal Communication Barrier [...] Scale Risk Level : 25-45 Medium Risk [place] Fall Interventions : Adequate lighting, Assistive devices [...] Source : Stated Height Entry Format : [place] Height, Feet : 5 ft(Converted to: 152 cm, 60 Inch) Height, Inches : 9 Inch(Converted to: 0 ft 9 Inch, 22.86 cm) Clinical Height : 175.26 cm Weight Source : Bed scale Weight Entry Format : [place] Clinical Dosing Weight : 86.36 kg Weight, Pounds : 190 lb Body Surface Area (BSA) : 2.02 m2 Body Mass Index : 28.1 kg/m2 (HI) [place] Body Weight : 70 kg LAZARA Hoang [...] at risk LAZARA Hoang 10/14/2019 18:28 EST [place] Suicide Severity Rating Scale (C-SSRS) CSSRS Past [...] on filedocumented in this encounter Care Teams Watershed Tender Relationship Specialty Start Date End Date Marielos Amaral, KAYE [address] [phone] PCP - General Nurse Practitioner 08/18/23 documented as of this encounter
--- OUTSIDE RECORDS SUMMARY | 2025-05-16 11:08 | XMS_ITS | Encounter Summary ---
Author Organization [employer] ([place], [place], [place], [place]) Address [address] [place] [address] Care Team Providers Care Egg Worker Name Role Phone Munir Marielos RESTREPO Primary Care Provider [phone] Encounter Details Date Type Department Care Team (Late st Contact Info) Description 04/23/2022 Transcribed Document [facility] [place] [address] [place] [address] ProviderHaroldo MD [address] [place] [address] Social History Tobacco Use Types [...] Do you speak a language other than [place]ian at [facility]? Yes 10/30/2024 Do you want help [...] Health Plan: [employer] MED[employer] REPL Policy Number: [id number] Authorization Number: Insurance Primary Name : [employer] MEDICARE REPL Policy Number: [id number] Reference Number-Primary : [id number] Authorized Service Begin Date-Primary : 04/22/2022 EDT Authorization Comments-Primary : [facility] inpt auth [facility] Ref# [id number] received;clinicals attached. Historical Authorization Comments-Primary : No Authorization Comments Found KRISTINA GÓMEZ RN - 04/23/2022 18:56 EDT documented in this encounter Plan of Treatment Not on file documented as of this encounter Visit Diagnoses Not on filedocumented in this encounter Care Teams Egg Worker Relationship Specialty Start Date End Date Marielos Amaral, EDGE CUTTING MACHINE OPERATOR [address] [phone] PCP - General Nurse Practitioner 08/18/23 documented as of this encounter
--- OUTSIDE RECORDS SUMMARY | 2025-05-16 11:08 | XMS_ITS | Encounter Summary ---
Author Organization [employer] ([place], [place], [place], [place]) Address [address] [place] [address] Care Team Providers Care Photographic Machine Operator Name Role Phone Marielos Amaral KAYE Primary Care Provider Encounter Details Date Type Department Care Team (Late st Contact Info) Description 10/15/2019 Transcribed Document [facility] [place] [address] [place] [address] ProviderHaroldo MD [address] [place] [address] Social History Tobacco Use Types Packs/Day Years Used Date Smoking Tobacco: Never Assessed Sex and Gender Information Value Date Recorded Sex Assigned at Not on file Legal Sex Male 3:45 PM CDT Gender Identity Not on file Sexual Orientation Not on file documented as of this encounter Miscellaneous Notes * Cerner Conversion Note - Haroldo ProviderMD - 10/15/2019 5:00 AM SLUBBER HAND Chart Check - Review Order Profile Entered On: 10/15/2019 5:49 EST Performed On: 10/15/2019 5:00 EST by Kristofer Barr Rn Chart Check Powerplans Initiated/Discontinued as Appropriate : Yes All Active Orders Reviewed : Yes Kristofer Barr Rn - 10/15/2019 5:49 EST Electronically signed by Brittany [facility] Conversion Warehouse Production Worker Cerner at 01/24/2023 10:21 AM CDT documented in this encounter Plan of Treatment Not on file documented as of this encounter Visit Diagnoses Not on filedocumented in this encounter Care Teams Photographic Machine Operator Relationship Specialty Start Date End Date Marielos Amaral, RETURNS SUPERVISOR [address] [place] [address] PCP - General Nurse Practitioner 08/18/23 documented as of this encounter
--- OUTSIDE RECORDS SUMMARY | 2025-05-16 11:08 | XMS_ITS | Encounter Summary ---
Author Organization [employer] ([place], [place], [place], [place]) Address [address] [place] [address] Care Team Providers Care Computer Network Support Specialist Name Role Phone Marielos Amaral KAYE Primary Care Provider Encounter Details Date Type Department Care Team (Late st Contact Info) Description 10/14/2019 Transcribed Document [facility] [place] [address] [place] [address] ProviderHaroldo MD [address] [place] [address] Social History Tobacco Use Types Packs/Day Years Used Date Smoking Tobacco: Never Assessed Sex and Gender Information Value Date Recorded Sex Assigned at Not on file Legal Sex Male 3:45 PM CDT Gender Identity Not on file Sexual Orientation Not on file documented as of this encounter Miscellaneous Notes * Cerner Conversion Note - Haroldo ProviderMD - 10/14/2019 8:22 PM PARK INTERPRETIVE RANGER Patient: ZACKARY ANTOINE Age: 68 Years Sex: Male : 1950 Chief Complaint c/o L sided, non-radiating dull chest pressure constant in nature onset approx 2 weeks ago, reproduceable with movement of arm or laying on side. Primary Care Provider KATELYN MCKEON MD-[facility] Vital Signs T: 36.8 ??C TMIN: [...] tablet 5 mg = 1 Tab, Oral, K48ODhe Eliquis 5 mg oral tablet 5 mg [...] Lymph # 1.49 K/uL 10/14/2019 14:46 EST [place] % 8.9 % 10/14/2019 14:46 EST [place] # 0.69 K/uL 10/14/2019 14:46 EST Eos [...] Order on Record Electronically signed by Brittany, [facility] Conversion Shell Molder Cerner at 01/24/2023 10:28 AM CDT documented in this encounter Plan of Treatment Not on file documented as of this encounter Visit Diagnoses Not on filedocumented in this encounter Care Teams Computer Network Support Specialist Relationship Specialty Start Date End Date Marielos Amaral, WHOLESALE ACCOUNT EXECUTIVE [address] [id number] PCP - General Nurse Practitioner 08/18/23 documented as of this encounter
--- OUTSIDE RECORDS SUMMARY | 2025-05-16 11:08 | XMS_ITS | Encounter Summary ---
Author Organization [employer] ([place], [place], [place], [place]) Address [address] [place] [address] Care Team Providers Care Methods Analyst Data Processing Name Role Phone AmaralMarielos KAYE Primary Care Provider [phone] Encounter Details Date Type Department Care Team (Late st Contact Info) Description 04/14/2019 Transcribed Document [facility] [place] [address] [place] [address] ProviderHaroldo MD [address] [place] [address] Social History Tobacco Use Types Packs/Day Years [...] filedocumented in this encounter Care Teams Methods Analyst Data Processing Relationship Specialty Start Date End Date Marielos Amaral, KAYE [address] [phone] PCP - General Nurse Practitioner 08/18/23 documented as of this encounter
--- OUTSIDE RECORDS SUMMARY | 2025-05-16 11:08 | XMS_ITS | Encounter Summary ---
Author Organization [employer] ([place], [place], [place], [place]) Address [address] [place] [address] Care Team Providers Care Bush And Vine Farmer Fruit Crops Name Role Phone Marielos Amaral KAYE Primary Care Provider Encounter Details Date Type Department Care Team (Late st Contact Info) Description 10/14/2019 Transcribed Document [facility] [place] [address] [place] [address] ProviderHaroldo MD [address] [place] [address] Social History Tobacco Use Types Packs/Day Years Used Date Smoking Tobacco: Never Assessed Sex and Gender Information Value Date Recorded Sex Assigned at Not on file Legal Sex Male 3:45 PM CDT Gender Identity Not on file Sexual Orientation Not on file documented as of this encounter Miscellaneous Notes * Cerner Conversion Note - Haroldo ProviderMD - 10/14/2019 2:14 PM DEVOPS DEVELOPER Pain Assessment Entered On: 10/14/2019 15:44 EST [...] on filedocumented in this encounter Care Teams Bush And Vine Farmer Fruit Crops Relationship Specialty Start Date End Date Marielos Amaral, HAM STRIPPER [address] [phone] PCP - General Nurse Practitioner 08/18/23 documented as of this encounter
--- OUTSIDE RECORDS SUMMARY | 2025-05-16 11:08 | XMS_ITS | Encounter Summary ---
Author Organization [employer] ([place], [place], [place], [place]) Address [address] [place] [address] Care Team Providers Care Infection Prevention Coordinator Name Role Phone Munir Marielos RESTREPO Primary Care Provider Encounter Details Date Type Department Care Team (Late st Contact Info) Description 04/22/2022 Transcribed Document [facility] [place] [address] [place] [address] ProviderHaroldo MD [address] [place] [address] Social History Tobacco Use Types [...] Do you speak a language other than Latvian at [facility]? Yes 10/30/2024 Do you want help with [...] On: 04/22/2022 22:23 EDT by Almas Gómez, Asp Net Developer Cert Lead Meds to Bed Enrollment Patient Enrollment Decision: : Yes/enroll in meds to bed program Almas Gómez Asp Net Developer Cert Lead - 04/23/2022 10:39 EDT documented in this encounter Plan of Treatment Not on file documented as of this encounter Visit Diagnoses Not on filedocumented in this encounter Care Teams Infection Prevention Coordinator Relationship Specialty Start Date End Date Marielos Amaral, COOK PICKLED MEAT [address] [phone] PCP - General Nurse Practitioner 08/18/23 documented as of this encounter
--- OUTSIDE RECORDS SUMMARY | 2025-05-16 11:08 | XMS_ITS | Encounter Summary ---
Author Organization [employer] ([place], [place], [place], [place]) Address [address] [place] [address] Care Team Providers Care Cardiac Technologist Name Role Phone Marielos Amaral KAYE Primary Care Provider Encounter Details Date Type Department Care Team (Late st Contact Info) Description 10/14/2019 Transcribed Document [facility] [place] [address] [place] [address] ProviderHaroldo MD [address] [place] [address] Social History Tobacco Use Types Packs/Day Years Used Date Smoking Tobacco: Never Assessed Sex and Gender Information Value Date Recorded Sex Assigned at Not on file Legal Sex Male 3:45 PM CDT Gender Identity Not on file Sexual Orientation Not on file documented as of this encounter Miscellaneous Notes * Cerner Conversion Note - Haroldo ProviderMD - 10/14/2019 4:59 PM SAFETY PATROL OFFICER Nutrition Assessment Entered On: 10/15/2019 8:33 EST Performed On: 10/15/2019 8:33 EST by Almaz Chaudhari Dietitian Nutrition Assessment Current Nutrition Regimen Comment : 10/15: Rec'd consult for stroke pt. CT of head showed no acute abnormalities. LAB SUPPORT SERVICE TECH eval; pt passed and on diabetic diet. Intakes establishing. Meds/labs reviewed. No skin breakdown. LBM captain of guards. RD will rescreen in 2-3 days to monitor po intake and provide ONS prn. Almaz Chaudhari Dietitian - 10/15/2019 10:53 EST Nutrition Assessment Reason : Automatic referral Almaz Chaudhari Dietitian - 10/15/2019 8:32 EST Electronically signed by Brittany [facility] Conversion Insole Filler Cerner at 01/24/2023 10:36 AM CDT documented in this encounter Plan of Treatment Not on file documented as of this encounter Visit Diagnoses Not on filedocumented in this encounter Care Teams Cardiac Technologist Relationship Specialty Start Date End Date Marielos Amaral, LIFELINE REPRESENTATIVES [address] [place] [address] PCP - General Nurse Practitioner 08/18/23 documented as of this encounter
--- OUTSIDE RECORDS SUMMARY | 2025-05-16 11:08 | XMS_ITS | Encounter Summary ---
Author Organization [employer] ([place], [place], [place], [place]) Address [address] [place] [address] Care Team Providers Care Sales Recruiting Coordinator Name Role Phone Marielos Amaral KAYE Primary Care Provider [phone] Encounter Details Date Type Department Care Team (Late st Contact Info) Description 10/14/2019 Transcribed Document [facility] [place] [address] [place] [address] ProviderHaroldo MD [address] [place] [address] Social History Tobacco Use Types Packs/Day Years Used Date Smoking Tobacco: Never Assessed Sex and Gender Information Value Date Recorded Sex Assigned at Not on file Legal Sex Male 3:45 PM CDT Gender Identity Not on file Sexual Orientation Not on file documented as of this encounter Miscellaneous Notes * Cerner Conversion Note - Haroldo ProviderMD - 10/14/2019 8:18 PM WATER TRAINER Spiritual Care Assessment Entered On: 10/14/2019 20:20 EST Performed On: 10/14/2019 20:18 EST by LUCY SANDERS Chaplain General Information Initial Visit : Yes Referred by : Code Referral Reason Comment : code stroke Ministry Provided to : Family/Significant other Evangelical Preference : No confucianist LUCY SANDERS Chaplain - 10/14/2019 20:18 EST Spiritual Assessment Spiritual Assessment Comment/Summary Points : responded to code stroke page @ 16:00. supportive presence and conversation with patient's , Enriqueta. 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 Spirital Assessment Comment/Summary Report : SPIRITUAL ASSESSMENT COMMENT/SUMMARY No qualifying data available. LUCY SANDERS, - 10/14/2019 20:18 EST Electronically signed by [facility] Conversion Cyber Ops Planner Cerner at 01/24/2023 10:40 AM CDT documented in this encounter Plan of Treatment Not on file documented as of this encounter Visit Diagnoses Not on filedocumented in this encounter Care Teams Sales Recruiting Coordinator Relationship Specialty Start Date End Date Marielos Amaral, KAYE [address] [phone] PCP - General Nurse Practitioner 08/18/23 documented as of this encounter
--- OUTSIDE RECORDS SUMMARY | 2025-05-16 11:08 | XMS_ITS | Encounter Summary ---
Author Organization [employer] ([place], [place], [place], [place]) Address [address] [place] [address] Care Team Providers Care Sheriff Officer Name Role Phone Marielos Amaral KAYE Primary Care Provider Encounter Details Date Type Department Care Team (Late st Contact Info) Description 10/14/2019 Transcribed Document [facility] [place] [facility] [place] [address] ProviderHaroldo MD [address] [place] [address] Social History Tobacco Use Types Packs/Day Years Used Date Smoking Tobacco: Never Assessed Sex and Gender Information Value Date Recorded Sex Assigned at Not on file Legal Sex Male 3:45 PM CDT Gender Identity Not on file Sexual Orientation Not on file documented as of this encounter Miscellaneous Notes * Cerner Conversion Note - Haroldo ProviderMD - 10/14/2019 6:15 PM HUMAN RESOURCES COORDINATOR ED Discharge Entered On: 10/14/2019 19:02 EST Performed On: 10/14/2019 18:15 EST by Ivone Damon coroner's juror Process Patient Disposition : Admit/Observe Personal Belongings With Patient : Yes Patient Education Completed : Yes Teaching Evaluation : Verbalizes understanding IV Discontinued : No Nursing Documentation Completed : Yes Ivone Damon, RN - 10/14/2019 19:01 EST Admission, ED Nurse Report Accepted By : LOG RAFTER Nurse Report Acceptance Time : 10/14/2019 18:15 EST `Nurse Report (Hand Off) : Called Accompanied By, Discharge : Spouse, Other: RN; monitor Mode Of Departure : Ivone Back RN - 10/14/2019 19:01 EST documented in this encounter Plan of Treatment Not on file documented as of this encounter Visit Diagnoses Not on filedocumented in this encounter Care Teams Sheriff Officer Relationship Specialty Start Date End Date Marielos Amaral, KAYE [address] [place] [address] PCP - General Nurse Practitioner 08/18/23 documented as of this encounter
--- OUTSIDE RECORDS SUMMARY | 2025-05-16 11:08 | XMS_ITS | Encounter Summary ---
Author Organization [employer] ([place], [place], [place], [place]) Address [address] [place] [address] Care Team Providers Care Tattooer Name Role Phone Munir Marielos RESTREPO Primary Care Provider Encounter Details Date Type Department Care Team (Late st Contact Info) Description 04/22/2022 Transcribed Document [facility] [place] [address] [place] [address] ProviderHaroldo MD [address] [place] [address] Social History Tobacco Use Types [...] Do you speak a language other than Panamanian at [facility]? Yes 10/30/2024 Do you want help [...] on filedocumented in this encounter Care Teams Tattooer Relationship Specialty Start Date End Date Marielos Amaral, KAYE [address] [place] [address] PCP - General Nurse Practitioner 08/18/23 documented as of this encounter
--- OUTSIDE RECORDS SUMMARY | 2025-05-16 11:08 | XMS_ITS | Encounter Summary ---
Author Organization [employer] ([place], [place], [place], [place]) Address [address] [place] [address] Care Team Providers Care Rn Staffing Name Role Phone AmaralMarielos roque KAYE Primary Care Provider Encounter Details Date Type Department Care Team (Late st Contact Info) Description 10/14/2019 Transcribed Document [facility] [place] Family Medicine [address] [place] [address] ProviderHaroldo MD [address] [place] [address] Social History Tobacco Use Types Packs/Day Years Used Date Smoking Tobacco: Never Assessed Sex and Gender Information Value Date Recorded Sex Assigned at Not on file Legal Sex Male 3:45 PM CDT Gender Identity Not on file Sexual Orientation Not on file documented as of this encounter Miscellaneous Notes * Cerner Conversion Note - Haroldo ProviderMD - 10/14/2019 8:22 PM SALES AGENT CASUALTY INSURANCE DATE OF ADMISSION: 10/14/2019 CHIEF COMPLAINT: Chest [...] He was taken off aspirin by his social work instructor at [employer]. The remaining medications of preliminary ones include: [...] his chest pain, the patient assessment for [place] with repeat troponin. The patient received aspirin [...] and they are aware of the plan. /[id number] Brennan Lopes MD GG/AQ / GG / MODL CC: Dr. Head Electronically signed by [facility] Conversion Field Services Director Cerner at 01/24/2023 10:21 AM CDT documented in this encounter Plan of Treatment Not on file documented as of this encounter Visit Diagnoses Not on filedocumented in this encounter Care Teams Rn Staffing Relationship Specialty Start Date End Date Munir KAYE Arceo [address] [address] PCP - General Nurse Practitioner 08/18/23 documented as of this encounter
--- OUTSIDE RECORDS SUMMARY | 2025-05-16 11:08 | XMS_ITS | Encounter Summary ---
Author Organization [employer] ([place], [place], [place], [place]) Address [address] [place] [address] Care Team Providers Care Computerized Table Cutter Name Role Phone Munir Marielos RESTREPO Primary Care Provider Encounter Details Date Type Department Care Team (Late st Contact Info) Description 04/23/2022 Transcribed Document [facility] Family Medicine [address] [place] [address] ProviderHaroldo MD [address] [place] [address] Social History Tobacco Use Types [...] Do you speak a language other than Norwegian at [facility]? Yes 10/30/2024 Do you want help with [...] Historical Provider, - 04/23/2022 9:21 AM CDT AIR SEALING TECHNICIAN Therapy Screen Entered On: 04/23/2022 9:26 EDT Performed On: 04/23/2022 9:21 EDT by STACIA BROWN SLP Therapy Screen Medical Chart Reviewed, AIR SEALING TECHNICIAN : Yes Therapy Screen Completed, AIR SEALING TECHNICIAN : Yes Recommendations for Evaluation AIR SEALING TECHNICIAN : None Therapy Screen Comment, AIR SEALING TECHNICIAN : Neuro is currently not consulted, CVA does not appear to be in differential per hospitalist PA note. No communication deficits noted during bedside yesterday. Will defer communication eval. STACIA BROWN, AIR SEALING TECHNICIAN - 04/23/2022 9:21 EDT Electronically signed by Brittany [facility] Conversion Dobby Loom Fixer Cerner at 01/24/2023 10:22 AM CDT documented in this encounter Plan of Treatment Not on file documented as of this encounter Visit Diagnoses Not on filedocumented in this encounter Care Teams Computerized Table Cutter Relationship Specialty Start Date End Date Marielos Amaral APRN [address] [phone] PCP - General Nurse Practitioner 08/18/23 documented as of this encounter
--- OUTSIDE RECORDS SUMMARY | 2025-05-16 11:08 | XMS_ITS | Encounter Summary ---
Author Organization [employer] ([place], [place], [place], [place]) Address [address] [place] [address] Care Team Providers Care Electrician Assistant Name Role Phone Marielos Amaral APRN Primary Care Provider Encounter Details Date Type Department Care Team (Late st Contact Info) Description 10/14/2019 Transcribed Document [facility] [place] Family Medicine [address] [place] [address] ProviderHaroldo MD [address] [place] [address] Social History Tobacco Use Types Packs/Day Years Used Date Smoking Tobacco: Never Assessed Sex and Gender Information Value Date Recorded Sex Assigned at Not on file Legal Sex Male 3:45 PM CDT Gender Identity Not on file Sexual Orientation Not on file documented as of this encounter Miscellaneous Notes * Cerner Conversion Note - Historical ProviderMD - 10/14/2019 5:11 PM CAKE PUNCHER CR Chest 1 Vw Portable Ordered: 10/14/2019 Modified Reason for Exam: Chest Pain 10/14/2019 15:41 10/14/2019 17:11 (MARILYN TOM APRN) Reviewed by Provider, No further action required x1 documented in this encounter Plan of Treatment Not on file documented as of this encounter Visit Diagnoses Not on filedocumented in this encounter Care Teams Electrician Assistant Relationship Specialty Start Date End Date Marielos Amaral APRN [address] [address] PCP - General Nurse Practitioner 08/18/23 documented as of this encounter
--- OUTSIDE RECORDS SUMMARY | 2025-05-16 11:08 | XMS_ITS | Encounter Summary ---
Author Organization [employer] ([place], [place], [place], [place]) Address [address] [place] [address] Care Team Providers Care Import/Export Specialist Name Role Phone Marielos Amaral KAYE Primary Care Provider Encounter Details Date Type Department Care Team (Late st Contact Info) Description 10/15/2019 Transcribed Document [facility] [place] [address] [place] [address] ProviderHaroldo MD [address] [place] [address] Social History Tobacco Use Types Packs/Day Years Used Date Smoking Tobacco: Never Assessed Sex and Gender Information Value Date Recorded Sex Assigned at Not on file Legal Sex Male 3:45 PM CDT Gender Identity Not on file Sexual Orientation Not on file documented as of this encounter Miscellaneous Notes * Cerner Conversion Note - Historical ProviderMD - 10/15/2019 5:58 AM MATE SHIP Height and Weight, Routine Entered On: 10/15/2019 5:58 EST Performed On: 10/15/2019 5:58 EST by Emily Rich [facility] Height and Weight, Routine Routine Weight Source : Bed scale Routine Weight Entry Format : Metric Routine Weight, Kilograms : 87.5 kg(Converted to: 192 lb 14 oz) Routine Weight Calculation : 87.5 kg Height Source : Stated Height Entry Format : Kaufman Height, Feet : 5 ft Height, Inches [...] on filedocumented in this encounter Care Teams Import/Export Specialist Relationship Specialty Start Date End Date Marielos Amaral, CAD ENGINEER [address] [phone] PCP - General Nurse Practitioner 08/18/23 documented as of this encounter
--- OUTSIDE RECORDS SUMMARY | 2025-05-16 11:08 | XMS_ITS | Encounter Summary ---
Author Organization [employer] ([place], [place], [place], [place]) Address [address] [place] [address] Care Team Providers Care Land Leases And Rentals Manager Name Role Phone Munir Marielos RESTREPO Primary Care Provider Encounter Details Date Type Department Care Team (Late st Contact Info) Description 04/22/2022 Transcribed Document [facility] [place] Family Medicine [address] [place] [address] ProviderHaroldo MD [address] [place] [address] Social History Tobacco Use Types [...] Do you speak a language other than [place] Verdean at [facility]? [...] Historical Provider, - 04/22/2022 1:51 PM CDT DEPUTY GENERAL COUNSEL Attempt to Treat Entered On: 04/22/2022 13:51 EDT Performed On: 04/22/2022 13:51 EDT by TOVA LOPEZ SLP Attempt to Treat Unable to Treat Due To : Patient Unavailable Inability to Treat Comment : Pt leaving for CT. DEPUTY GENERAL COUNSEL will check back as schedule allows. Notification : TOVA MACIAS, RAMONA - 04/22/2022 13:51 EDT Electronically signed by Brittany [facility] Conversion Nurse Esthetician Cerner at 01/24/2023 10:39 AM CDT documented in this encounter Plan of Treatment Not on file documented as of this encounter Visit Diagnoses Not on filedocumented in this encounter Care Teams Land Leases And Rentals Manager Relationship Specialty Start Date End Date Marielos Amaral, CAMP ATTENDANT [address] [place] [address] PCP - General Nurse Practitioner 08/18/23 documented as of this encounter
--- OUTSIDE RECORDS SUMMARY | 2025-05-16 11:08 | XMS_ITS | Encounter Summary ---
Author Organization [employer] ([place], [place], [place], [place]) Address [address] [place] [address] Care Team Providers Care Passenger Car Conductor Name Role Phone Marielos Amaral APRN Primary Care Provider Encounter Details Date Type Department Care Team (Late st Contact Info) Description 04/14/2019 Transcribed Document [facility] [place] Family Medicine [address] [place] [address] ProviderHaroldo MD [address] [place] [address] Social History Tobacco Use Types Packs/Day Years [...] ELINADEION /Sex: 1950 Male Med Rec #: [id number] Physician: PRINCESS DOCKERY MD-GAE Financial #: [id number] Pt. Type: O Room/Bed: Admit/Disch: 04/14/19 14:02:00 - Institution: [facility] Endo - Case Attendance Entry 1 Entry 2 Entry 3 Case Attendee PRINCESS DOCKERY Bicknell, Ashley, RN OCTAVIA NORRIS MD MD-GAE Role Performed Surgeon/Proceduralist, Branch Chief, First Anesthesiologist First Time In 04/14/19 16:31:00 [...] Modified By: Ivone Humphreys RN 04/14/19 16:38:58 [facility] Endo - Case Attendance Audit 04/14/19 16:38:58 Hook And Eye Machine Operator: BICKNEA Modifier: BICKNEA 1 <+> Time Out 1 <*> Procedure Esophageal Biopsy, EGD w Radiofrequency Ablation 2 <+> Time Out 2 <*> Procedure Esophageal Biopsy, EGD w Radiofrequency Ablation 3 <+> Time Out 3 <*> Procedure Esophageal Biopsy, EGD w Radiofrequency Ablation 4 <+> Time Out 4 <*> Procedure Esophageal Biopsy, EGD w Radiofrequency Ablation 04/14/19 16:36:43 Hook And Eye Machine Operator: BICKNEA Modifier: BICKNEA 1 <*> Procedure Esophageal Biopsy 2 <*> Procedure Esophageal Biopsy 3 <*> Procedure Esophageal Biopsy 4 <*> Procedure Esophageal Biopsy 04/14/19 16:36:34 Hook And Eye Machine Operator: BICKNEA Modifier: BICKNEA 1 <*> Procedure Esophagogastroduodenoscopy, Esophageal Biopsy 2 <*> Procedure Esophagogastroduodenoscopy, Esophageal Biopsy 3 <*> Procedure Esophagogastroduodenoscopy, Esophageal Biopsy 4 <*> Procedure Esophagogastroduodenoscopy, Esophageal Biopsy 04/14/19 16:33:43 Hook And Eye Machine Operator: CHASKNEA Modifier: BICKNEA 1 <*> Procedure Esophagogastroduodenoscopy 2 <*> Procedure Esophagogastroduodenoscopy 3 <*> Procedure Esophagogastroduodenoscopy 4 <*> Procedure Esophagogastroduodenoscopy 04/14/19 16:31:13 Hook And Eye Machine Operator: BICKNEA Modifier: BICKNEA 1 <*> Time In 04/14/19 16:26:00 1 <*> Procedure Esophagogastroduodenoscopy 04/14/19 16:27:03 Hook And Eye Machine Operator: BICKNEA Modifier: BICKNEA <+> 1 Procedure 2 [...] Endo - Case Times Audit 04/14/19 16:38:53 Hook And Eye Machine Operator: BOOGIEEA Modifier: BICKNEA <+> 1 Out Room Time <+> 1 Stop Time <+> 1 Stop Time 04/14/19 16:33:07 Hook And Eye Machine Operator: CHASKNEA Modifier: BICKNEA <+> 1 Start Time [...] Ablation Last Modified By: Ivone Humphreys RN 04/14/19 16:27:00 [facility] Endo - Fire Risk Assessment Entry 1 [...] 04/14/19 16:27:07 [place] [facility] - General Case Table Games Dealer 1 Case Information OR Endo 02 [facility] Case Level 1 Room Verified Yes Wound Class II - Clean-Contaminated Specialty SN Gastroenterology Anesthesia Type MAC ASA 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 Last Modified By: Ivone Humphreys RN 04/14/19 16:39:42 [facility] Endo - General Case Data Audit 04/14/19 16:39:42 Hook And Eye Machine Operator: BICKNEA Modifier: BICKNEA <+> 1 Postop Diagnosis 04/14/19 16:32:15 Hook And Eye Machine Operator: BOOGIEEA Modifier: BICKNEA 1 <+> Postop Same As Preop 1 <*> Preop Diagnosis K22.719 [facility] Endo - Intraoperative Assessment Entry 1 Valid [...] Endo - Patient Positioning Audit 04/14/19 16:36:45 Hook And Eye Machine Operator: BICKNEA Modifier: BICKNEA 1 <*> Procedure Esophageal Biopsy 04/14/19 16:36:34 Hook And Eye Machine Operator: BICKNEA Modifier: BICKNEA 1 <*> Procedure Esophagogastroduodenoscopy, Esophageal Biopsy 04/14/19 16:33:45 Hook And Eye Machine Operator: BICKNEA Modifier: BICKNEA 1 <*> Procedure Esophagogastroduodenoscopy [...] Endo - Surgical Procedures Audit 04/14/19 16:39:00 Hook And Eye Machine Operator: BICKNEA Modifier: BICKNEA <+> 1 Stop <+> 2 Stop 04/14/19 16:36:40 Hook And Eye Machine Operator: CHASKNEA Modifier: BICKNEA 1 <*> Procedure Esophagogastroduodenoscopy 04/14/19 16:33:38 Hook And Eye Machine Operator: BICKNEA Modifier: BICKNEA <+> 1 Start <+> 2 Procedure <+> 2 Primary Procedure <+> 2 Primary Surgeon <+> 2 Specialty <+> 2 Start <+> 2 Wound Class <+> 2 Anesthesia Type 04/14/19 16:28:17 Hook And Eye Machine Operator: BOOGIEEA Modifier: BICKNEA 1 <*> Procedure Esophagogastroduodenoscopy 1 <+> Specialty [facility] Endo - Time Out Entry 1 Procedure [...] Endo - Time Out Audit 04/14/19 16:36:45 Hook And Eye Machine Operator: ZAC Modifier: ZAC 1 <*> Procedure to be Performed Esophageal Biopsy 04/14/19 16:36:35 Hook And Eye Machine Operator: ZAC Modifier: CHASKNEA 1 <*> Procedure to be Performed Esophagogastroduodenoscopy, Esophageal Biopsy 04/14/19 16:33:46 Hook And Eye Machine Operator: ZAC Modifier: BICKNEA 1 <*> Procedure to be Performed Esophagogastroduodenoscopy Case Comments <None> Finalized By: Ivone Humphreys RN Document Signatures Signed By: Ivone Humphreys RN 04/14/19 16:39 documented in this encounter Plan of Treatment Not on file documented as of this encounter Visit Diagnoses Not on filedocumented in this encounter Care Teams Passenger Car Conductor Relationship Specialty Start Date End Date Marielos Amaral, STAINED GLASS JOINER [address] [address] PCP - General Nurse Practitioner 08/18/23 documented as of this encounter
--- OUTSIDE RECORDS SUMMARY | 2025-05-16 11:08 | XMS_ITS | Encounter Summary ---
Author Organization [employer] ([place], [place], [place], [place]) Address [address] [place] [address] Care Team Providers Care Solar Installer Pv Name Role Phone Marielos Amaral KAYE Primary Care Provider Encounter Details Date Type Department Care Team (Late st Contact Info) Description 10/14/2019 Transcribed Document [facility] [place] [address] [place] [id number] ProviderHaroldo MD [address] [place] [address] Social History Tobacco Use Types Packs/Day Years Used Date Smoking Tobacco: Never Assessed Sex and Gender Information Value Date Recorded Sex Assigned at Not on file Legal Sex Male 3:45 PM CDT Gender Identity Not on file Sexual Orientation Not on file documented as of this encounter Miscellaneous Notes * [employer]ner Conversion Note - Haroldo Warren MD - 10/14/2019 5:07 PM CARTOGRAPHIC ENGINEER DATE OF CONSULTATION: 10/14/2019 NEUROLOGY CONSULTATION REASON [...] left. Otherwise, sensation intact, not ataxic with [id number]. Deep tendon reflexes were not assessed in [...] been spent in evaluation of this patient. /[id number] MD NABEEL Mcdermott/JEAN PAUL / NABEEL / MOHSEN /[id number] Electronically signed by Brittany, [facility] Conversion Communication Analyst Cerner at 01/24/2023 10:43 AM CDT documented in this encounter Plan of Treatment Not on file documented as of this encounter Visit Diagnoses Not on filedocumented in this encounter Care Teams Solar Installer Pv Relationship Specialty Start Date End Date Marielos Amaral APRN [address] [phone] PCP - General Nurse Practitioner 08/18/23 documented as of this encounter
--- OUTSIDE RECORDS SUMMARY | 2025-05-16 11:08 | XMS_ITS | Encounter Summary ---
Author Organization [employer] ([place], [place], [place], [place]) Address [address] [place] [address] Care Team Providers Care Counterintelligence Agent Name Role Phone Munir Marielos RESTREPO Primary Care Provider Encounter Details Date Type Department Care Team (Late st Contact Info) Description 04/22/2022 Transcribed Document [facility] [place] [address] [place] [address] ProviderHaroldo MD [address] [place] [address] Social History Tobacco Use Types [...] Do you speak a language other than Tristanian at [facility]? Yes 10/30/2024 [...] 17:33 EDT by Casi Evans, Emergency Room Telephone Directory Deliverer ED Event Note ED Event Date/Time : 04/22/2022 17:33 EDT ED Description of Event : food tray ordered Casi Evans, Emergency Room Telephone Directory Deliverer - 04/22/2022 17:33 EDT Electronically signed by Brittany [facility] Conversion Identity Management Consultant Cerner at 01/24/2023 10:42 AM CDT documented in this encounter Plan of Treatment Not on file documented as of this encounter Visit Diagnoses Not on filedocumented in this encounter Care Teams Counterintelligence Agent Relationship Specialty Start Date End Date Marielos Amaral, KAYE [address] [place] [address] PCP - General Nurse Practitioner 08/18/23 documented as of this encounter
--- OUTSIDE RECORDS SUMMARY | 2025-05-16 11:08 | XMS_ITS | Encounter Summary ---
Author Organization [employer] ([place], [place], [place], [place]) Address [address] [place] [address] Care Team Providers Care Installment Loan Collector Name Role Phone Marielos Amaral APRN Primary Care Provider Encounter Details Date Type Department Care Team (Late st Contact Info) Description 10/14/2019 Transcribed Document [facility] [place] [address] [place] [address] ProviderHaroldo MD [address] [place] [address] Social History Tobacco Use Types Packs/Day Years Used Date Smoking Tobacco: Never Assessed Sex and Gender Information Value Date Recorded Sex Assigned at Not on file Legal Sex Male 3:45 PM CDT Gender Identity Not on file Sexual Orientation Not on file documented as of this encounter Miscellaneous Notes * Cerner Conversion Note - Historical ProviderMD - 10/14/2019 2:15 PM SALES ENABLEMENT LEAD Patient: ZACKARY ANTOINE Age: 68 years [...] 5 mg oral tablet: 1 Tab, Oral, [id number], 60 Tab, 0 Refill(s) Toprol-XL 25 mg [...] history: Cardiac catheterization. hernia repair. Tonsillectomy. Cholecystectomy; (88930). Appendectomy. left arm surgery. Coronary stents., Reviewed [...] EST Height Source Stated Height Entry Format [place] Height/Length, [place]IZ[place] (ft) 5 ft Height/Length [place] 9 Inch CLINICALHEIGHT 175.26 cm [place] Body Weight 69.73 kg Weight Source, ED Critical estimated dosing weight Weight Entry Format [place] Weight Mong[place]ian lb 190 lb CLINICALWEIGHT 86.36 kg Body [...] 82, normal sinus rhythm, no ectopy, normal HI & QRS intervals, EP Interp, ns st [...] 19.2 % LOW Lymph # 1.49 K/uL [place] % 8.9 % [place] # 0.69 K/uL Eos % 1.4 % Eos # 0.11 Baso % 0.3 % Baso # 0.02 Slide Review No . Chest X-Ray: Time reported 10/14/2019 17:04:00, no acute disease process, interpretation by Emergency Physician. Radiology results: Radiology Results (Last 48 hours) [id number] -- 10/14/2019 13:50 CR Chest 1 Vw [...] on filedocumented in this encounter Care Teams Installment Loan Collector Relationship Specialty Start Date End Date Amaral, Marielos, GENERATING PLANT SUPERINTENDENT [address] [phone] PCP - General Nurse Practitioner 08/18/23 documented as of this encounter
--- OUTSIDE RECORDS SUMMARY | 2025-05-16 11:08 | XMS_ITS | Encounter Summary ---
Author Organization [employer] ([place], [place], [place], [place]) Address [address] [place] [address] Care Team Providers Care Chief Clinical Officer Name Role Phone Munir Marielos RESTREPO Primary Care Provider [phone] Encounter Details Date Type Department Care Team (Late st Contact Info) Description 04/23/2022 Transcribed Document [facility] [place] [address] [place] [address] ProviderHaroldo MD [address] [place] [address] Social History Tobacco Use Types [...] speak a language other than Andorran at [facility]? Yes 10/30/2024 [...] Other (See Comment) Eliquis: 2.5 mg, Oral, D22ERpc Rocephin: 1 Gram, 100 mL/Hr, IV Piggyback, D00EXox Tylenol: 650 mg, Oral, Q4H, PRN: Pain [...] mg tab 2.5 mg 1 Tab, Oral, [id number] atorvastatin 40 mg tab 40 mg 1 Tab, Oral, At Bedtime cefTRIAXone 1 Gram, IV Piggyback, R21ZCws insulin glargine 1 unit/0.01 mL inj 5 [...] list: Medical Atrial fibrillation / SNOMED CT 40580435 / Confirmed CAD - Coronary artery disease / SNOMED CT 2085843134 / Confirmed Cardiomyopathy / SNOMED CT 028476361 / Confirmed Acute cerebrovascular accident (CVA) / SNOMED CT 925656667 / Confirmed History of obstructive sleep apnea / IMO 13753256 / Confirmed HLD - Hyperlipidemia / SNOMED CT 217101437 / Confirmed HTN - Hypertension / SNOMED CT 1412958562 / Confirmed Type 2 diabetes mellitus / SNOMED CT 088769688 / Confirmed, Active Problems (20) Acute cerebrovascular [...] EDT Height Source Stated Height Entry Format [place] Height/Length, [place] (ft) 5 ft Height/Length [place] 9 Inch CLINICALHEIGHT 175.26 cm [place] Body Weight 70 kg Weight Source Bed scale Weight Entry Format [place] Weight [place] lb 187 lb CLINICALWEIGHT 85 kg Body Surface Area (BSA) 2.01 m2 Body Mass Index 27.7 kg/m2 HI 04/22/2022 9:15 EDT Height Source Stated Height Entry Format [place] Height/Length, [place] (ft) 5 ft Height/Length [place] 9 Inch CLINICALHEIGHT 175.26 cm [place] Body Weight 69.73 kg Weight Source, ED Critical estimated dosing weight Weight Entry Format [place] Weight [place] lb 187 lb CLINICALWEIGHT 85 kg Body [...] Gastrointestinal: Soft, Non-tender, Non-distended. Integumentary: Warm, Dry, [place]. Neurologic: Alert, Oriented, No focal deficits. Psychiatric: [...] renal diet. - No emergent need of REGULATORY SUBMISSIONS SPECIALIST. Will follow. documented in this encounter Plan of Treatment Not on file documented as of this encounter Visit Diagnoses Not on filedocumented in this encounter Care Teams Chief Clinical Officer Relationship Specialty Start Date End Date Marielos Amaral APRN [address] [address] PCP - General Nurse Practitioner 08/18/23 documented as of this encounter
--- OUTSIDE RECORDS SUMMARY | 2025-05-16 11:08 | XMS_ITS | Encounter Summary ---
Author Organization [employer] ([place], [place], [place], [place]) Address [address] [place] [address] Care Team Providers Care Stenocaptioner Name Role Phone AmaralMarielos roque KAYE Primary Care Provider [phone] Encounter Details Date Type Department Care Team (Late st Contact Info) Description 10/14/2019 Transcribed Document [facility] [place] [address] [place] [address] ProviderHaroldo MD [address] [place] [address] Social History Tobacco Use Types Packs/Day Years Used Date Smoking Tobacco: Never Assessed Sex and Gender Information Value Date Recorded Sex Assigned at Not on file Legal Sex Male 3:45 PM CDT Gender Identity Not on file Sexual Orientation Not on file documented as of this encounter Miscellaneous Notes * Cerner Conversion Note - Haroldo ProviderMD - 10/14/2019 8:26 PM POTATO PANCAKE FRIER Pain Assessment Entered On: 10/15/2019 13:43 EST Performed On: 10/15/2019 10:44 EST by Deysi Valdes RN Intervention Information: acetaminophen Performed by RISA STRANGE on 10/15/2019 09:44:00 EST acetaminophen,650mg Oral,Pain (Mild 1-3) Pain Assessment Pain Assessment : Follow-up assessment Pain Scale Goal : 2 Pain Improved by Intervention : Yes Deysi Valdes RN - 10/15/2019 13:43 EST Electronically signed by Interface, [facility] Conversion Bedspread Inspector Cerner at 01/24/2023 10:30 AM CDT documented in this encounter Plan of Treatment Not on file documented as of this encounter Visit Diagnoses Not on filedocumented in this encounter Care Teams Stenocaptioner Relationship Specialty Start Date End Date Marielos Amaral, KAYE [address] [phone] PCP - General Nurse Practitioner 08/18/23 documented as of this encounter
--- OUTSIDE RECORDS SUMMARY | 2025-05-16 11:08 | XMS_ITS | Encounter Summary ---
Author Organization [employer] ([place], [place], [place], [place]) Address [address] [place] [address] Care Team Providers Care Adult Crossing Guard Name Role Phone Munir Marielos RESTREPO Primary Care Provider Encounter Details Date Type Department Care Team (Late st Contact Info) Description 04/22/2022 Transcribed Document [facility] [place] [address] [place] [address] ProviderHaroldo MD [address] [place] [address] Social History Tobacco Use Types [...] Do you speak a language other than Niuean at [facility]? Yes 10/30/2024 Do [...] and within reach RN/PCT Informed Comment : ULIS Shah was informed Treatment End Time : [...] USHA REICH, PT - 04/23/2022 13:50 EDT Operator/Assistant Foreman Goals Mobility/Bed Mobility LTG PT Grid Goal [...] USHA REICH PT - 04/23/2022 15:19 EDT [place] PT Charges PT Ther Activities Ea 15 Min : 1 PT Eval Low Complexity : 1 USHA REICH PT - 04/23/2022 15:19 EDT Electronically signed by Brittany [facility] Conversion Furnace Worker Cerner at 01/24/2023 10:41 AM CDT documented in this encounter Plan of Treatment Not on file documented as of this encounter Visit Diagnoses Not on filedocumented in this encounter Care Teams Adult Crossing Guard Relationship Specialty Start Date End Date Marielos Amaral APRN [address] [address] PCP - General Nurse Practitioner 08/18/23 documented as of this encounter
--- OUTSIDE RECORDS SUMMARY | 2025-05-16 11:08 | XMS_ITS | Encounter Summary ---
Author Organization [employer] ([place], [place], [place], [place]) Address [address] [place] [address] Care Team Providers Care Superintendent Concrete Mixing Plant Name Role Phone Marielos Amaral KAYE Primary Care Provider [phone] Encounter Details Date Type Department Care Team (Late st Contact Info) Description 10/15/2019 Transcribed Document [facility] Family Medicine [address] [place] [address] ProviderHaroldo MD [address] [place] [address] Social History Tobacco Use Types Packs/Day Years Used Date Smoking Tobacco: Never Assessed Sex and Gender Information Value Date Recorded Sex Assigned at Not on file Legal Sex Male 3:45 PM CDT Gender Identity Not on file Sexual Orientation Not on file documented as of this encounter Miscellaneous Notes * Cerner Conversion Note - Haroldo ProviderMD - 10/15/2019 4:08 AM INTERMEDIATE DESIGNER Spiritual Care Short Form Entered On: 10/15/2019 7:22 EST Performed On: 10/15/2019 4:08 EST by REJI STERLING Chaplain General Information, Spiritual Care Spiritual Care Referred by : Screed Operator follow-up Reason for Visit : Follow Up Ministry Provided to : Patient, Family/Significant other Intervention/Comment/Summary Points : Met with Enriqueta (Gisselle) surg. waiting area charging her phone. Enriqueta notes patient spiritual journey as involved various Saqib centered denominations but Hindu best describes pt's current belief system. Chap. prov. prayer with Enriqueta focusing on pt. recovery and effectiveness of TPA. Episcopal Preference : No mormonism REJI STERLING Chaplain - 10/15/2019 7:19 EST Electronically signed by Brittany, [facility] Conversion Stores [employer]ner at 01/24/2023 10:18 AM CDT documented in this encounter Plan of Treatment Not on file documented as of this encounter Visit Diagnoses Not on filedocumented in this encounter Care Teams Superintendent Concrete Mixing Plant Relationship Specialty Start Date End Date Marielos Amaral, KAYE [address] [place] [address] PCP - General Nurse Practitioner 08/18/23 documented as of this encounter
--- OUTSIDE RECORDS SUMMARY | 2025-05-16 11:08 | XMS_ITS | Encounter Summary ---
Author Organization [employer] ([place], [place], [place], [place]) Address [address] [place] [address] Care Team Providers Care Blast Setter Name Role Phone Marielos Amaral KAYE Primary Care Provider Encounter Details Date Type Department Care Team (Late st Contact Info) Description 10/14/2019 Transcribed Document [facility] [place] Family Medicine [address] [place] [address] ProviderHaroldo MD [address] [place] [address] Social History Tobacco Use Types Packs/Day Years Used Date Smoking Tobacco: Never Assessed Sex and Gender Information Value Date Recorded Sex Assigned at Not on file Legal Sex Male 3:45 PM CDT Gender Identity Not on file Sexual Orientation Not on file documented as of this encounter Miscellaneous Notes * Cerner Conversion Note - Haroldo ProviderMD - 10/14/2019 1:50 PM SUPERVISOR COMMERCIAL FISH HATCHERY ED Triage Entered On: 10/14/2019 14:07 EST [...] : 2 - Emergent Tracking Group : [facility] ED ASHLEY ZUÑIGA - 10/14/2019 14:04 [...] 10/14/2019 14:07:48 EST) Problems(Active) Angina (SNOMED CT :359292237 ) Name of Problem: Angina ; Recorder: RAVEN REILLY RN; Confirmation: Confirmed ; Classification: Patient Stated ; Code: [id number] ; Contributor System: Manas Informatic ; Last Updated: 07/20/2014 9:33 EDT ; Life Cycle Date: 07/20/2014 ; Life Cycle Status: Active ; Vocabulary: SNOMED CT Coronary artery disease (SNOMED CT :0748303408 ) Name of Problem: Coronary artery disease ; Recorder: RAVEN REILLY RN; Confirmation: Confirmed ; Classification: Patient Stated ; Code: [id number] ; Contributor System: Innovative Sports StrategiesChart ; Last Updated: 07/20/2014 9:33 EDT ; Life Cycle Date: 07/20/2014 ; Life Cycle Status: Active ; Vocabulary: SNOMED CT Diabetes mellitus type II (SNOMED CT :43609633 ) Name of Problem: Diabetes mellitus type II ; Recorder: RAVEN REILLY RN; Confirmation: Confirmed ; Classification: Patient Stated ; Code: 78068480 ; Contributor System: PowerChart ; Last Updated: 07/20/2014 9:35 EDT ; Life Cycle Date: 07/20/2014 ; Life Cycle Status: Active ; Vocabulary: SNOMED CT Enlarged prostate (SNOMED CT :339995029 ) Name of Problem: Enlarged prostate ; Recorder: RAVEN REILLY RN; Confirmation: Confirmed ; Classification: Patient Stated ; Code: 525573227 ; Contributor System: PowerChart ; Last Updated: 07/20/2014 9:34 EDT ; Life Cycle Date: 07/20/2014 ; Life Cycle Status: Active ; Vocabulary: SNOMED CT GERD - Gastro-esophageal reflux disease (SNOMED CT :4100044873 ) Name of Problem: GERD - Gastro-esophageal reflux disease ; Recorder: RAVEN REILLY RN; Confirmation: Confirmed ; Classification: Patient Stated ; Code: [id number] ; Contributor System: PowerChart ; Last Updated: 07/20/2014 9:34 EDT ; Life Cycle Date: 07/20/2014 ; Life Cycle Status: Active ; Vocabulary: SNOMED CT Heart failure (SNOMED CT :588337187 ) Name of Problem: Heart failure ; Recorder: RAVEN REILLY RN; Confirmation: Confirmed ; Classification: Patient Stated ; Code: 254001379 ; Contributor System: Innovative Sports StrategiesChart ; Last Updated: 07/20/2014 9:33 EDT ; Life Cycle Date: 07/20/2014 ; Life Cycle Status: Active ; Vocabulary: SNOMED CT Heart murmur (SNOMED CT :494311872 ) Name of Problem: Heart murmur ; Recorder: RAVEN REILLY RN; Confirmation: Confirmed ; Classification: Patient Stated ; Code: 752637503 ; Contributor System: PowerChart ; Last Updated: 07/20/2014 9:33 EDT ; Life Cycle Date: 07/20/2014 ; Life Cycle Status: Active ; Vocabulary: SNOMED CT History of obstructive sleep apnea (IMO :68485665 ) Name of Problem: History of obstructive sleep apnea ; Recorder: SYSTEM, SYSTEM; Confirmation: Confirmed ; Classification: Medical ; Code: 51191943 ; Last Updated: 01/20/2019 12:39 EDT ; Life Cycle Date: 01/20/2019 ; Life Cycle Status: Active ; Vocabulary: IMO Hyperlipidemia (SNOMED CT :36066616 ) Name of Problem: Hyperlipidemia ; Recorder: RAVEN REILLY RN; Confirmation: Confirmed ; Classification: Patient Stated ; Code: 15121367 ; Contributor System: Innovative Sports StrategiesChart ; Last Updated: 09/03/2017 13:38 EST ; Life Cycle Date: 07/20/2014 ; Life Cycle Status: Active ; Vocabulary: SNOMED CT Hypertension (SNOMED CT :64928103 ) Name of Problem: Hypertension ; Recorder: RAVEN REILLY RN; Confirmation: Confirmed ; Classification: Patient Stated ; Code: 18020521 ; Contributor System: PowerChart ; Last Updated: 07/20/2014 9:33 EDT ; Life Cycle Date: 07/20/2014 ; Life Cycle Status: Active ; Vocabulary: SNOMED CT Impaired vision (SNOMED CT :60502308 ) Name of Problem: Impaired vision ; Recorder: RAVEN REILLY RN; Confirmation: Confirmed ; Classification: Patient Stated ; Code: 35060161 ; Contributor System: PowerChart ; Last Updated: 07/20/2014 9:32 EDT ; Life Cycle Date: 07/20/2014 ; Life Cycle Status: Active ; Vocabulary: SNOMED CT Migraine (SNOMED CT :34383584 ) Name of Problem: Migraine ; Recorder: RAVEN REILLY RN; Confirmation: Confirmed ; Classification: Patient Stated ; Code: 26769287 ; Contributor System: PowerChart ; Last Updated: 07/20/2014 9:35 EDT ; Life Cycle Date: 07/20/2014 ; Life Cycle Status: Active ; Vocabulary: SNOMED CT Stented coronary artery (SNOMED CT :9409649636 ) Name of Problem: Stented coronary artery ; Recorder: RAVEN REILLY RN; Confirmation: Confirmed ; Classification: Patient Stated ; Code: 7273017217 ; Contributor System: Manas Informatic ; Last Updated: 07/20/2014 9:33 EDT ; Life Cycle Date: 07/20/2014 ; Life Cycle Status: Active ; Vocabulary: SNOMED CT Diagnoses(Active) Chest pain Date: 10/14/2019 ; Diagnosis Type: Reason For Visit ; Confirmation: Complaint of ; Clinical Dx: Chest pain ; Classification: Medical ; Clinical Service: Emergency medicine ; Code: PNED ; Probability: 0 ; Diagnosis Code: [id number] ED Height and Weight Height Source : Stated Height Entry Format : [place] Height, Feet : 5 ft(Converted to: 152 cm, 60 Inch) Height, Inches : 9 Inch(Converted to: 0 ft 9 Inch, 22.86 cm) Clinical Height : 175.26 cm Weight Source, ED : Critical estimated dosing weight Weight Entry Format : [place] Weight, Pounds : 190 lb Clinical Dosing Weight : 86.36 kg Body Surface Area (BSA) : 2.02 m2 Body Mass Index : 28.1 kg/m2 (HI) [place] Body Weight (IBW) : 69.73 kg ASHLEY ZUÑIGA - 10/14/2019 14:04 EST documented in this encounter Plan of Treatment Not on file documented as of this encounter Visit Diagnoses Not on filedocumented in this encounter Care Teams Blast Setter Relationship Specialty Start Date End Date Marielos Amaral APRN [address] [address] PCP - General Nurse Practitioner 08/18/23 documented as of this encounter
--- OUTSIDE RECORDS SUMMARY | 2025-05-16 11:08 | XMS_ITS | Encounter Summary ---
Author Organization [employer] ([place], [place], [place], [place]) Address [address] [place] [address] Care Team Providers Care Land Inspector Name Role Phone Munir Marielos RESTREPO Primary Care Provider Encounter Details Date Type Department Care Team (Late st Contact Info) Description 04/22/2022 Transcribed Document [facility] [place] [address] [place] [address] ProviderHaroldo MD [address] [place] [address] Social History Tobacco Use Types [...] Do you speak a language other than Burmese at [facility]? Yes 10/30/2024 Do you want help [...] Historical Provider, - 04/22/2022 9:14 AM CDT [place] Suicide Severity Rating Scale (C-SSRS) Entered On: 04/22/2022 10:04 EDT Performed On: 04/22/2022 10:02 EDT by Shala Cole RN [place] Suicide Severity Rating Scale (C-SSRS) CSSRS Past Month Wish to be : No CSSRS Past Month Suicidal Thoughts : No CSSRS Lifetime Suicide Behavior : No Suicide Severity Rating Score : 0 Suicide Severity Rating : No Additional Care Required at this time Shala Cole RN - 04/22/2022 10:02 EDT Electronically signed by Brittany [facility] Conversion Combat Control Manager Cerner at 01/24/2023 10:42 AM CDT documented in this encounter Plan of Treatment Not on file documented as of this encounter Visit Diagnoses Not on filedocumented in this encounter Care Teams Land Inspector Relationship Specialty Start Date End Date Marielos Amaral APRN [address] [address] PCP - General Nurse Practitioner 08/18/23 documented as of this encounter
--- OUTSIDE RECORDS SUMMARY | 2025-05-16 11:08 | XMS_ITS | Encounter Summary ---
Author Organization [employer] ([place], [place], [place], [place]) Address [address] [place] [address] Care Team Providers Care Grab Setter Name Role Phone Marielos Amaral KAYE Primary Care Provider Encounter Details Date Type Department Care Team (Late st Contact Info) Description 02/09/2019 Transcribed Document [facility] [place] [address] [place] [address] ProviderHaroldo MD [address] [place] [address] Social History Tobacco Use Types Packs/Day Years [...] 02/09/2019 4:00 EDT by Jessica Diez [facility] Unit Coord Height and Weight, Routine Routine Weight Source : Bed scale Routine Weight Entry Format : [place] Routine Weight, Pounds : 173 lb Routine Weight, Ounces : 8 oz Routine Weight Calculation : 78.86 kg Height Source : Stated Height Entry Format : [place] Height, Feet : 5 ft Height, Inches : 9 Inch Clinical Height : 175.26 cm Body Surface Area (BSA), Routine : 1.95 m2 Body Mass Index (BMI), Routine : 25.67 kg/m2 Jessica [facility] - 02/09/2019 7:21 EDT Electronically signed by Brittany [facility] Conversion Silk Screener Cerner at 01/24/2023 10:44 AM CDT documented in this encounter Plan of Treatment Not on file documented as of this encounter Visit Diagnoses Not on filedocumented in this encounter Care Teams Grab Setter Relationship Specialty Start Date End Date Marielos Amaral, KAYE [address] [address] PCP - General Nurse Practitioner 08/18/23 documented as of this encounter
--- OUTSIDE RECORDS SUMMARY | 2025-05-16 11:08 | XMS_ITS | Encounter Summary ---
Author Organization [employer] ([place], [place], [place], [place]) Address [address] [place] [address] Care Team Providers Care City Council Member Name Role Phone Marielos Amaral KAYE Primary Care Provider Encounter Details Date Type Department Care Team (Late st Contact Info) Description 10/14/2019 Transcribed Document [facility] [place] [address] [place] [address] ProviderHaroldo MD [address] [place] [address] Social History Tobacco Use Types Packs/Day Years Used Date Smoking Tobacco: Never Assessed Sex and Gender Information Value Date Recorded Sex Assigned at Not on file Legal Sex Male 3:45 PM CDT Gender Identity Not on file Sexual Orientation Not on file documented as of this encounter Miscellaneous Notes * Cerner Conversion Note - Haroldo ProviderMD - 10/14/2019 1:50 PM DUPLICATION SPECIALIST ED Assessment Entered On: 10/14/2019 15:40 EST Performed On: 10/14/2019 14:00 EST by Ivone Damon, DISTRIBUTED ENERGY SYSTEMS CONSULTANT Quick Look Assessment Level of Consciousness : Alert, Awake Affect/Behavior : Appropriate, Calm, Cooperative Orientation : Oriented x 4 Skin Temperature : Warm Skin Description : Normal for ethnicity Ivone Damon, RN - 10/14/2019 15:38 EST ED General-Functional Assess Information Obtained From : Patient, Spouse Preferred Communication Mode : Verbal Communication Barrier : None Primary Language : Malawian Any Spiritual/Cultural Needs or Requests : No [...] - 10/14/2019 15:38 EST Electronically signed by [facility], [facility] Conversion Infectious Diseases Physician Cerner at 01/24/2023 10:31 AM CDT documented in this encounter Plan of Treatment Not on file documented as of this encounter Visit Diagnoses Not on filedocumented in this encounter Care Teams City Council Member Relationship Specialty Start Date End Date Marielos Amaral, KAYE [address] [id number] PCP - General Nurse Practitioner 08/18/23 documented as of this encounter
--- OUTSIDE RECORDS SUMMARY | 2025-05-16 11:08 | XMS_ITS | Encounter Summary ---
Author Organization [employer] ([place], [place], [place], [place]) Address [address] [place] [address] Care Team Providers Care Message Clerk Name Role Phone Marielos Amaral KAYE Primary Care Provider Encounter Details Date Type Department Care Team (Late st Contact Info) Description 10/15/2019 Transcribed Document [facility] [place] [address] [place] [address] ProviderHaroldo MD [address] [place] [address] Social History Tobacco Use Types Packs/Day Years Used Date Smoking Tobacco: Never Assessed Sex and Gender Information Value Date Recorded Sex Assigned at Not on file Legal Sex Male 3:45 PM CDT Gender Identity Not on file Sexual Orientation Not on file documented as of this encounter Miscellaneous Notes * Cerner Conversion Note - Haroldo ProviderMD - 10/15/2019 3:24 PM MASS COMMUNICATIONS INSTRUCTOR Initial Discharge Planning Entered On: 10/15/2019 15:26 EST Performed On: 10/15/2019 15:24 EST by HARITHA BARRIOS Rn-Audio Visual Technician Initial Assessment I Previously Documented Living Environment : No qualifying data available. HARITHA BARRIOS Rn-Audio Visual Technician - 10/15/2019 15:26 EST Living Situation : [...] Listed? : Yes Medical Durable Power of Show Operations Supervisor Name : None on file Legal Guardian : No Is Guardianship Needed : No HARITHA BARRIOS Rn-Audio Visual Technician - 10/15/2019 15:24 EST Initial Assessment II Sensory and Motor Deficits : None Current Home Treatments and Equipment : Bedside commode, Blood glucose monitor, Cane, CPAP, Shower chair, Walker HARITHA BARRIOS Rn-Audio Visual Technician - 10/15/2019 15:24 EST Discharge Needs I Anticipated Discharge Date : 10/16/2019 EST Anticipated Discharge To, CM : Home with family care Current Home Treatment/Equipment : Current Home Treatment/Equipment No qualifying data available. Post Acute/Home Treatments : Blood glucose monitor, CPAP, Shower chair, Walker Documentation Status Complete : Yes HARITHA BARRIOS Rn-Audio Visual Technician - 10/15/2019 15:24 EST Discharge Needs II Professional Skilled Services : Professional Skilled Services No qualifying data available. Needs Assistance with Transportation : No Discharge Options Discussed with Patient : Discharge transportation, DME, Home Health HARITHA BARRIOS Rn-Audio Visual Technician - 10/15/2019 15:24 EST Narrative Note Narrative [...] over the weekend. IM completed. HARITHA BARRIOS Rn-Audio Visual Technician - 10/15/2019 15:26 EST documented in this encounter Plan of Treatment Not on file documented as of this encounter Visit Diagnoses Not on filedocumented in this encounter Care Teams Message Clerk Relationship Specialty Start Date End Date Marielos Aamral APRN [address] [address] PCP - General Nurse Practitioner 08/18/23 documented as of this encounter
--- OUTSIDE RECORDS SUMMARY | 2025-05-16 11:08 | XMS_ITS | Encounter Summary ---
Author Organization [employer] ([place], [place], [place], [place]) Address [address] [place] [address] Care Team Providers Care Gas Meter Installer Name Role Phone Marielos Amaral AUTOMOTIVE HEAVY MECHANIC Primary Care Provider [phone] Encounter Details Date Type Department Care Team (Late st Contact Info) Description 03/23/2019 Transcribed Document [address] [address] Camilo Steven MD [address] [place] [address] Social History Tobacco Use Types Packs/Day Years [...] ] Cardiac monitoring 02/06 Orders: Cardiac Monitoring Wheel Blocker Signature: Nahomy Nieves CCS Phone #: [phone] Date/Time: 03/23/2019 / 13:25 CT This is a permanent part of the Medical Record documented in this encounter Plan of Treatment Not on file documented as of this encounter Visit Diagnoses Not on filedocumented in this encounter Care Teams Gas Meter Installer Relationship Specialty Start Date End Date Marielos Amaral, AUTOMOTIVE HEAVY MECHANIC [address] [place] [address] PCP - General Nurse Practitioner 08/18/23 documented as of this encounter
--- OUTSIDE RECORDS SUMMARY | 2025-05-16 11:08 | XMS_ITS | Encounter Summary ---
Author Organization [employer] ([place], [place], [place], [place]) Address [address] [place] [address] Care Team Providers Care Facility Environmental Technician Name Role Phone Marielos Amaral KAYE Primary Care Provider Encounter Details Date Type Department Care Team (Late st Contact Info) Description 10/14/2019 Transcribed Document [facility] [place] [address] [place] [address] ProviderHaroldo MD [address] [place] [address] Social History Tobacco Use Types Packs/Day Years Used Date Smoking Tobacco: Never Assessed Sex and Gender Information Value Date Recorded Sex Assigned at Not on file Legal Sex Male 3:45 PM CDT Gender Identity Not on file Sexual Orientation Not on file documented as of this encounter Miscellaneous Notes * Cerner Conversion Note - Haroldo ProviderMD - 10/14/2019 4:59 PM SHIPPING COORDINATOR Evaluation, Occupational Therapy Entered On: 10/15/2019 15:56 [...] FOSTER OTR/Melvin - 10/15/2019 15:51 EST Hand Combat Control Test : Bilateral card seller strength WFL ARABELLA FOSTER OTR/Melvin 10/15/2019 15:51 [...] ARABELLA FOSTER OTR/Melvin - 10/15/2019 15:51 EST [place] OT Charges OT Eval Moderate Complexity : 1 ARABELLA FOSTER OTR/Melvin - 10/15/2019 15:51 EST Electronically signed by [facility], [facility] Conversion Tassel Making Machine Operator Cerner at 01/24/2023 10:31 AM CDT documented in this encounter Plan of Treatment Not on file documented as of this encounter Visit Diagnoses Not on filedocumented in this encounter Care Teams Facility Environmental Technician Relationship Specialty Start Date End Date Marielos Amaral, KNOCKUP WORKER [address] [address] PCP - General Nurse Practitioner 08/18/23 documented as of this encounter
--- OUTSIDE RECORDS SUMMARY | 2025-05-16 11:08 | XMS_ITS | Encounter Summary ---
Author Organization [employer] ([place], [place], [place], [place]) Address [address] [place] [address] Care Team Providers Care Certified Vehicle Fire Investigator Name Role Phone AmaralMarielos KAYE Primary Care Provider Encounter Details Date Type Department Care Team (Late st Contact Info) Description 10/14/2019 Transcribed Document [facility] [place] Family Medicine [address] [place] [address] ProviderHaroldo MD [address] [place] [address] Social History Tobacco Use Types Packs/Day Years Used Date Smoking Tobacco: Never Assessed Sex and Gender Information Value Date Recorded Sex Assigned at Not on file Legal Sex Male 3:45 PM CDT Gender Identity Not on file Sexual Orientation Not on file documented as of this encounter Miscellaneous Notes * Cerner Conversion Note - Haroldo ProviderMD - 10/14/2019 6:48 PM HIMS CLERK Event Note Entered On: 10/14/2019 18:49 EST Performed On: 10/14/2019 18:48 EST by LAZARA Hoang Event Note Event Date/Time : 10/14/2019 6:30 EST Event Location : Assigned room Event Details : Nursing assessment additional narrative Description of Event : Patient arrived via stretcher from ED. No acute distress. LAZARA Hoang - 10/14/2019 18:48 EST Electronically signed by Brittany [facility] Conversion Irrigation System Installer [employer] at 01/24/2023 10:44 AM CDT documented in this encounter Plan of Treatment Not on file documented as of this encounter Visit Diagnoses Not on filedocumented in this encounter Care Teams Certified Vehicle Fire Investigator Relationship Specialty Start Date End Date Marielos Amaral, BIOLOGICAL SCIENTIST [address] [phone] PCP - General Nurse Practitioner 08/18/23 documented as of this encounter
--- OUTSIDE RECORDS SUMMARY | 2025-05-16 11:08 | XMS_ITS | Encounter Summary ---
Author Organization [employer] ([place], [place], [place], [place]) Address [address] [place] [address] Care Team Providers Care Montessori Preschool Teacher Name Role Phone Marielos Amaral WAD BLANKING PRESS ADJUSTER Primary Care Provider [phone] Encounter Details Date Type Department Care Team (Late st Contact Info) Description 10/14/2019 Transcribed Document [facility] [place] [address] [place] [address] ProviderHaroldo MD [address] [place] [address] Social History Tobacco Use Types Packs/Day Years Used Date Smoking Tobacco: Never Assessed Sex and Gender Information Value Date Recorded Sex Assigned at Not on file Legal Sex Male 3:45 PM CDT Gender Identity Not on file Sexual Orientation Not on file documented as of this encounter Miscellaneous Notes * Cerner Conversion Note - Haroldo Warren MD - 10/14/2019 4:59 PM BITUMASTIC APPLIER Swallow Evaluation Entered On: 10/15/2019 9:46 EST Performed On: 10/15/2019 9:41 EST by BIPIN LEE SLP General Information Visit Type, ADULT PAROLE OFFICER : Initial evaluation Patient Orders : Speech Language Pathology Swallow Evaluation and Treatment -111 Start: 10/14/19 16:59:00 EST, Routine, For Swallow Eval and Treat, stroke - TYSHAWN BRANDT MD-SIN Admission Date : Admission Date/Time: 10/14/19 17:19:00 Medical Chart Reviewed, ADULT PAROLE OFFICER : Yes Personal Devices : Personal Devices No Devices Recorded Assistive Devices : Assistive Devices No Devices Recorded Active Diagnoses : 10/14/2019 12:00 Cerebral infarction, unspecified 10/14/2019 12:00 Chest pain 10/14/2019 12:00 Chest pain, unspecified 10/14/2019 12:00 Hypertensive emergency 10/14/2019 12:00 Hypertensive urgency 10/14/2019 12:00 Other symptoms and signs involving the musculoskeletal system Therapy Diagnosis, ADULT PAROLE OFFICER : normal swallow function Previous Speech/Language Evaluations : normal last admission with CVA Previous Swallow Precautions : 02/06/19 regular diet recommended Previous Cognitive Evaluations : normal on last admission with CVA Diet/Intake Prior to Current Admission : regular Diet/Intake During Current Admission : regular Intubation Comment, ADULT PAROLE OFFICER : landen Vital Signs RTF : Vitals [...] 9:41 EST General Status Patient Received Status, ADULT PAROLE OFFICER : Long sitting in bed Patient Left Status, ADULT PAROLE OFFICER : Long sitting in bed RN/PCT Informed Comment, ADULT PAROLE OFFICER : discussed with BIPIN HURLEY SLP - [...] evidence of dysphagia present Further Evaluation Required, ADULT PAROLE OFFICER : none indciated at this time Swallowing [...] - 10/15/2019 9:41 EST Therapy Indication Assessment ADULT PAROLE OFFICER Indicated : No ADULT PAROLE OFFICER Not Indicated : At prior level of function ADULT PAROLE OFFICER Interdisciplinary Consultation Needs : No Potential Barriers to ADULT PAROLE OFFICER : None evident ADULT PAROLE OFFICER Rehabilitation Potential : At prior level of function BIPIN LEE SLP - 10/15/2019 9:41 EST Swallow Plan/Goals Treatment Frequency, ADULT PAROLE OFFICER : Other: no follow up needed BIPIN LEE SLP - 10/15/2019 9:41 EST Education Barriers To Learning : None evident Individuals Taught : Patient Readiness to Learn : Cooperative Baseline Knowledge of Topic : None Readiness to Learn : Explanation Learning Style Preferences Patient : None BIPIN LEE SLP - 10/15/2019 9:41 EST ADULT PAROLE OFFICER Education Assessment Grid 1 Aspiration : Verbalizes understanding Diet Recommendation : Verbalizes understanding Evaluation Results : Verbalizes understanding BIPIN LEE SLP - 10/15/2019 9:[address] [facility] Charges Evaluation Swallowing Function : 1 BIPIN LEE SLP - 10/15/2019 9:41 EST Electronically signed by [facility], [facility] Conversion Load Dispatcher Local Cerner at 01/24/2023 10:30 AM CDT documented in this encounter Plan of Treatment Not on file documented as of this encounter Visit Diagnoses Not on filedocumented in this encounter Care Teams Montessori Preschool Teacher Relationship Specialty Start Date End Date Marielos Amaral, KAYE [address] [place] [address] PCP - General Nurse Practitioner 08/18/23 documented as of this encounter
--- OUTSIDE RECORDS SUMMARY | 2025-05-16 11:08 | XMS_ITS | Encounter Summary ---
Author Organization [employer] ([place], [place], [place], [place]) Address [address] [place] [address] Care Team Providers Care Gaming Worker Name Role Phone Marielos Amaral KAYE Primary Care Provider Encounter Details Date Type Department Care Team (Late st Contact Info) Description 10/14/2019 Transcribed Document [facility] [place] [address] [place] [address] ProviderHaroldo MD [address] [place] [address] Social History Tobacco Use Types Packs/Day Years Used Date Smoking Tobacco: Never Assessed Sex and Gender Information Value Date Recorded Sex Assigned at Not on file Legal Sex Male 3:45 PM CDT Gender Identity Not on file Sexual Orientation Not on file documented as of this encounter Miscellaneous Notes * Cerner Conversion Note - Haroldo ProviderMD - 10/14/2019 8:20 PM MOBILE EQUIPMENT OPERATOR Spiritual Care Assessment Entered On: 10/14/2019 20:22 EST Performed On: 10/14/2019 20:20 EST by LUCY SANDERS Chaplain General Information Initial Visit : No Referred by : follow-up Ministry Provided to : Family/Significant other Mormonism Preference : No restorationist LUCY SANDERS Chaplain - 10/14/2019 20:20 EST Spiritual Assessment Spiritual Assessment Comment/Summary Points : follow up visit with Enriqueta, providing and enjoying conversation about her previous family members who were in [facility]. She has been here many times with several family members being patients down through many years. Spirital Assessment Comment/Summary Report : SPIRITUAL ASSESSMENT COMMENT/SUMMARY Spiritual Assessment Comment/Summary 10/14/19 20:18:00 responded to code stroke page @ 16:00. supportive presence and conversation with patient's , Enriqueta. 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 Signed By: LUCY SANDERS Chaplain ELGIN, DAVID L, Chaplain - 10/14/2019 20:20 EST documented in this encounter Plan of Treatment Not on file documented as of this encounter Visit Diagnoses Not on filedocumented in this encounter Care Teams Gaming Worker Relationship Specialty Start Date End Date Marielos Amaral APRN [address] [address] PCP - General Nurse Practitioner 08/18/23 documented as of this encounter
--- OUTSIDE RECORDS SUMMARY | 2025-05-16 11:08 | XMS_ITS | Encounter Summary ---
Author Organization [employer] ([place], [place], [place], [place]) Address [address] [place] [address] Care Team Providers Care Convention Manager Name Role Phone Marielos Amaarl APRN Primary Care Provider Encounter Details Date Type Department Care Team (Late st Contact Info) Description 04/14/2019 Transcribed Document [facility] [place] [address] [place] [address] ProviderHaroldo MD [address] [place] [address] Social History Tobacco Use Types Packs/Day Years [...] ELINAZACKARY /Sex: 1950 Male Med Rec #: [id number] Physician: PRINCESS DOCKERY MD-GAE Financial #: [id number] Pt. Type: O Room/Bed: Admit/Disch: 04/14/19 14:02:00 [...] filedocumented in this encounter Care Teams Convention Manager Relationship Specialty Start Date End Date Marielos Amaral, PRIVATE CHEF [address] [id number] PCP - General Nurse Practitioner 08/18/23 documented as of this encounter
--- OUTSIDE RECORDS SUMMARY | 2025-05-16 11:08 | XMS_ITS | Encounter Summary ---
Author Organization [employer] ([place], [place], [place], [place]) Address [address] [place] [address] Care Team Providers Care Manager Payment Name Role Phone Marielos Amaral KAYE Primary Care Provider Encounter Details Date Type Department Care Team (Late st Contact Info) Description 10/14/2019 Transcribed Document [facility] [place] [address] [place] [address] ProviderHaroldo MD [address] [place] [address] Social History Tobacco Use Types Packs/Day Years Used Date Smoking Tobacco: Never Assessed Sex and Gender Information Value Date Recorded Sex Assigned at Not on file Legal Sex Male 3:45 PM CDT Gender Identity Not on file Sexual Orientation Not on file documented as of this encounter Miscellaneous Notes * Cerner Conversion Note - Haroldo ProviderMD - 10/14/2019 6:06 PM VELOCITY SHOOTER Rapid Response Team Documentation Entered On: 10/14/2019 [...] : Transfer to critical care Rapid Response Manager Payment #1 : MAYLIN TOMLIN RN EGLESTON, JEREMY W, RN - 10/14/2019 18:06 EST Rapid Response Systems Assessment Oxygen Therapy Mode : Room air Angioedema Present : No Homer Best Motor Response : Obey commands Homer Best Verbal Response : Oriented Uvaldo Eye Opening Response : Spontaneous Homer Coma Score : 15 Level of Consciousness [...] (7) : Absent NIH Sensory (8) : Voca-nu-wtluttbk sensory loss NIH Best Language (9) : [...] MAYLIN TOMLIN RN - 10/14/2019 18:06 EST Electronically signed by Renetta Soto Conversion Ethylene Oxide Panelboard Operator Cerner at 01/24/2023 10:23 AM CDT documented in this encounter Plan of Treatment Not on file documented as of this encounter Visit Diagnoses Not on filedocumented in this encounter Care Teams Manager Payment Relationship Specialty Start Date End Date Marielos Amaral APRN [address] [address] PCP - General Nurse Practitioner 08/18/23 documented as of this encounter
--- OUTSIDE RECORDS SUMMARY | 2025-05-16 11:08 | XMS_ITS | Encounter Summary ---
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 Initially biopsies did show [...] on filedocumented in this encounter Care Teams Casting And Locker Room Servicer Relationship Specialty Start Date End Date Marielos Amaral APRN [address] [address] PCP - General Nurse Practitioner 08/18/23 documented as of this encounter
--- OUTSIDE RECORDS SUMMARY | 2025-05-16 11:08 | XMS_ITS | Encounter Summary ---
Author Organization [employer] ([place], [place], [place], [place]) Address [address] [place] [address] Care Team Providers Care Edge Trimming Machine Operator Name Role Phone Marielos Amaral KAYE Primary Care Provider Encounter Details Date Type Department Care Team (Late st Contact Info) Description 10/14/2019 Transcribed Document [facility] [place] [address] [place] [address] ProviderHaroldo MD [address] [place] [address] Social History Tobacco Use Types Packs/Day Years Used Date Smoking Tobacco: Never Assessed Sex and Gender Information Value Date Recorded Sex Assigned at Not on file Legal Sex Male 3:45 PM CDT Gender Identity Not on file Sexual Orientation Not on file documented as of this encounter Miscellaneous Notes * Cerner Conversion Note - Haroldo ProviderMD - 10/14/2019 4:59 PM FRUIT FARMER Spiritual Care Assessment Entered On: 10/15/2019 10:42 EST Performed On: 10/15/2019 10:35 EST by JORDYN HART General Information Referred by : Physician Referral Reason Comment : Code Stroke Ministry Provided to : Patient, Family/Significant other Islam Preference : No anglican JORDYN HART - 10/15/2019 10:37 EST Spiritual [...] her previous family members who were in [facility]. She has been here many times with several family members being patients down through many years. Signed By: LUCY SANDERS Chaplain Spiritual Assessment Comment/Summary 10/14/19 20:18:00 responded to code stroke page @ 16:00. supportive presence and conversation with patient's , Enriqueta. 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 Signed By: LUCY SANDERS Chaplain [facility] - 10/15/2019 10:37 EST Electronically signed by Brittany [facility] Conversion Forming Roll Operator Heavy Duty Cerner at 01/24/2023 10:37 AM CDT documented in this encounter Plan of Treatment Not on file documented as of this encounter Visit Diagnoses Not on filedocumented in this encounter Care Teams Edge Trimming Machine Operator Relationship Specialty Start Date End Date Marielos Amaral APRN [address] [place] [address] PCP - General Nurse Practitioner 08/18/23 documented as of this encounter
--- OUTSIDE RECORDS SUMMARY | 2025-05-16 11:08 | XMS_ITS | Encounter Summary ---
Author Organization [facility] ([place], [place], [place], [place]) Address [address] [place] [address] Care Team Providers Care Drafter Apprentice Name Role Phone Munir Marielos RESTREPO Primary Care Provider Encounter Details Date Type Department Care Team (Late st Contact Info) Description 04/22/2022 Transcribed Document [facility] [place] [address] [place] [address] ProviderHaroldo MD [address] [place] [address] Social History Tobacco Use Types [...] living situation today? I [facility] a [facility] [place] to live 10/30/2024 Think about the [...] Do you speak a language other than Algerian at [facility]? Yes 10/30/2024 [...] AGGIE LOREDO OTR/Melvin Strong 04/23/2022 13:39 EDT Nursing Home Goals, OT Grooming LTG Grid Goal #1 [...] EDT Goal Status : Initial goal AGGIE LOREOD OTR/Melvin Strong 04/23/2022 13:39 EDT Toilet Transfer [...] AGGIE LOREDO OTR/L - 04/23/2022 13:39 EDT Cross Timbers OT Charges OT Ther Activities Ea 15 Min : 1 OT Eval Low Complexity : 1 AGGIE LOREDO OTR/L - 04/23/2022 13:39 EDT Electronically signed by Brittany [facility] Conversion Luggage Repairer Cerner at 01/24/2023 10:36 AM CDT documented in this encounter Plan of Treatment Not on file documented as of this encounter Visit Diagnoses Not on filedocumented in this encounter Care Teams Drafter Apprentice Relationship Specialty Start Date End Date Mraielos Amaral, COUNSELOR AT LAW [address] [place] [address] PCP - General Nurse Practitioner 08/18/23 documented as of this encounter
--- OUTSIDE RECORDS SUMMARY | 2025-05-16 11:08 | XMS_ITS | Encounter Summary ---
Author Organization [employer] ([place], [place], [place], [place]) Address [address] [place] [address] Care Team Providers Care Party Plan Sales Consultant Name Role Phone Marielos Amaral KAYE Primary Care Provider Encounter Details Date Type Department Care Team (Late st Contact Info) Description 04/23/2022 Transcribed Document [facility] Radiology [address] [place], [place] [id number] Saba Neal MD [address] [place] [address] [address] [place] [address] Social History Tobacco Use Types Packs/Day Years [...] Do you speak a language other than Singaporean at [facility]? Yes 10/30/2024 Do you want help with [...] Other (See Comment) Eliquis: 2.5 mg, Oral, [id number] Rocephin: 1 Gram, 100 mL/Hr, IV Piggyback, D35VShv Tylenol: 650 mg, Oral, Q4H, PRN: Pain [...] mg tab 2.5 mg 1 Tab, Oral, S87SHyy atorvastatin 40 mg tab 40 mg 1 Tab, Oral, At Bedtime cefTRIAXone 1 Gram, IV Piggyback, I92MDmf insulin glargine 1 unit/0.01 mL inj 5 [...] list: Medical Atrial fibrillation / SNOMED CT 50788992 / Confirmed CAD - Coronary artery disease / SNOMED CT 0614352203 / Confirmed Cardiomyopathy / SNOMED CT 932006511 / Confirmed Acute cerebrovascular accident (CVA) / SNOMED CT 080587532 / Confirmed History of obstructive sleep apnea / IMO 65945877 / Confirmed HLD - Hyperlipidemia / SNOMED CT 754241097 / Confirmed HTN - Hypertension / SNOMED CT 5549777295 / Confirmed Type 2 diabetes mellitus / SNOMED CT 327631675 / Confirmed, Active Problems (20) Acute cerebrovascular [...] 28.0 \ Radiology Results (Last 48 hours) [id number] -- 04/22/2022 12:30 CR Chest 1 Vw [...] 04/23/22 9:00:00 EDT, 04/23/22 9:00:00 EDT ASHLEY GALARZA PA apixaban (Eliquis) 2.5 mg, Oral, Tab, M84RDhi, Routine, Start 04/22/22 21:00:00 EDT, 04/22/22 21:00:00 EDT ASHLEY GALARZA PA atorvastatin 40 mg, Oral, Tab, At Bedtime, Routine, Start 04/22/22 21:00:00 EDT, 04/22/22 13:48:00 EDT ASHLEY GALARZA PA cefTRIAXone (Rocephin) 1 Gram, IV Piggyback, Inj, N18PAny, infuse over 30 Minute(s), Routine, Start 04/22/22 [...] (See Comment), Routine, Start 04/22/22 13:51:00 EDT ASHLEY GALARZA PA glucose (glucose 40% oral gel) [...] on filedocumented in this encounter Care Teams Party Plan Sales Consultant Relationship Specialty Start Date End Date Marielos Amaral APRN [address] [address] PCP - General Nurse Practitioner 08/18/23 documented as of this encounter
--- OUTSIDE RECORDS SUMMARY | 2025-05-16 11:09 | XMS_ITS | Encounter Summary ---
Author Organization [employer] ([place], [place], [place], [place]) Address [address] [place] [address] Care Team Providers Care Auto Service Writer Name Role Phone Marielos Amaral KAYE Primary Care Provider Encounter Details Date Type Department Care Team (Late st Contact Info) Description 02/08/2019 Transcribed Document [facility] [place] [address] [place] [address] ProviderHaroldo MD [address] [place] [address] Social History Tobacco Use Types Packs/Day Years [...] 02/08/2019 5:31 EDT Electronically signed by Brittany [facility] Conversion Sign Painter Apprentice Cerner at 01/24/2023 10:20 AM CDT documented in this encounter Plan of Treatment Not on file documented as of this encounter Visit Diagnoses Not on filedocumented in this encounter Care Teams Auto Service Writer Relationship Specialty Start Date End Date Rosette Amarale, CHIEF CLERK [address] [place] [address] PCP - General Nurse Practitioner 08/18/23 documented as of this encounter
--- OUTSIDE RECORDS SUMMARY | 2025-05-16 11:09 | XMS_ITS | Encounter Summary ---
Author Organization [employer] ([place], [place], [place], [place]) Address [address] [place] [address] Care Team Providers Care Cotton Grower Name Role Phone Munir Marielos RESTREPO Primary Care Provider Encounter Details Date Type Department Care Team (Late st Contact Info) Description 04/22/2022 Transcribed Document [facility] [place] [address] [place] [address] ProviderHaroldo MD [address] [place] [address] Social History Tobacco Use Types [...] Do you speak a language other than Armenian at [facility]? Yes 10/30/2024 Do you want [...] On: 04/22/2022 9:15 EDT by ASHLEY DING TAMPING MACHINE OPERATOR ROAD FORMS Triage Across the Room Chief Complaint : Pt presents via EMS following a syncopal episode. Reprots weakness. Hypotensive upon ED arrival. BP upon arrival was 60 systolic. Received 500mls NS. Hx of CABG and stents. Takes Eliquis. Denies head, neck, ot back pain. Jose M, synthetic cloth binding cutter. Triage Date/Time : 04/22/2022 9:15 EDT ASHLEY DING RN - 04/22/2022 9:15 EDT DCP GENERIC CODE Tracking Acuity : 2 - Emergent Tracking Group : [facility] ED ASHLEY DING RN - 04/22/2022 9:15 EDT Mode of Arrival : Stretcher Transported to ED by : Ambulance/ALS EMS Service : [facility] To Room Via : Stretcher Accompanied By [...] Patient Vaccinated for COVID-19 : Fully vaccinated ASHLEY DING RN - 04/22/2022 9:15 EDT [...] Problems(Active) Acute cerebrovascular accident (CVA) (SNOMED CT :196830756 ) Name of Problem: Acute cerebrovascular accident (CVA) ; Recorder: Roxana Brady RN; Confirmation: Confirmed ; Classification: Medical ; Code: [id number] ; Contributor System: Partly MarketplaceChart ; Last Updated: 04/12/2020 7:03 EDT ; Life Cycle Date: 04/12/2020 ; Life Cycle Status: Active ; Vocabulary: SNOMED CT Angina (SNOMED CT :562371490 ) Name of Problem: Angina ; Recorder: RAVEN REILLY RN; Confirmation: Confirmed ; Classification: Patient Stated ; Code: 442754607 ; Contributor System: PowerChart ; Last Updated: 07/20/2014 9:33 EDT ; Life Cycle Date: 07/20/2014 ; Life Cycle Status: Active ; Vocabulary: SNOMED CT Atrial fibrillation (SNOMED CT :16234765 ) Name of Problem: Atrial fibrillation ; Recorder: MARIO SRIVASTAVA RN; Confirmation: Confirmed ; Classification: Medical ; Code: 88831158 ; Contributor System: PowerChart ; Last Updated: 12/11/2020 13:21 EST ; Life Cycle Status: Active ; Vocabulary: SNOMED CT CAD - Coronary artery disease (SNOMED CT :4949397334 ) Name of Problem: CAD - Coronary artery disease ; Recorder: MARIO SRIVASTAVA RN; Confirmation: Confirmed ; Classification: Medical ; Code: 2895731750 ; Contributor System: PowerChart ; Last Updated: 12/11/2020 13:20 EST ; Life Cycle Status: Active ; Vocabulary: SNOMED CT Cardiomyopathy (SNOMED CT :610073104 ) Name of Problem: Cardiomyopathy ; Recorder: MARIO SRIVASTAVA RN; Confirmation: Confirmed ; Classification: Medical ; Code: 847278942 ; Contributor System: PowerChart ; Last Updated: 12/11/2020 13:20 EST ; Life Cycle Status: Active ; Vocabulary: SNOMED CT Coronary artery disease (SNOMED CT :0322861262 ) Name of Problem: Coronary artery disease ; Recorder: RAVEN REILLY RN; Confirmation: Confirmed ; Classification: Patient Stated ; Code: 5751946053 ; Contributor System: PowerChart ; Last Updated: 07/20/2014 9:33 EDT ; Life Cycle Date: 07/20/2014 ; Life Cycle Status: Active ; Vocabulary: SNOMED CT Diabetes mellitus type II (SNOMED CT :14773455 ) Name of Problem: Diabetes mellitus type II ; Recorder: RAVEN REILLY RN; Confirmation: Confirmed ; Classification: Patient Stated ; Code: 09414001 ; Contributor System: PowerChart ; Last Updated: 07/20/2014 9:35 EDT ; Life Cycle Date: 07/20/2014 ; Life Cycle Status: Active ; Vocabulary: SNOMED CT Enlarged prostate (SNOMED CT :620798704 ) Name of Problem: Enlarged prostate ; Recorder: RAVEN REILLY RN; Confirmation: Confirmed ; Classification: Patient Stated ; Code: 769420262 ; Contributor System: PowerChart ; Last Updated: 07/20/2014 9:34 EDT ; Life Cycle Date: 07/20/2014 ; Life Cycle Status: Active ; Vocabulary: SNOMED CT GERD - Gastro-esophageal reflux disease (SNOMED CT :1314208139 ) Name of Problem: GERD - Gastro-esophageal reflux disease ; Recorder: RAVEN REILLY RN; Confirmation: Confirmed ; Classification: Patient Stated ; Code: 7181149414 ; Contributor System: PowerChart ; Last Updated: 07/20/2014 9:34 EDT ; Life Cycle Date: 07/20/2014 ; Life Cycle Status: Active ; Vocabulary: SNOMED CT Heart failure (SNOMED CT :122562359 ) Name of Problem: Heart failure ; Recorder: RAVEN REILLY RN; Confirmation: Confirmed ; Classification: Patient Stated ; Code: 053506516 ; Contributor System: PowerChart ; Last Updated: 07/20/2014 9:33 EDT ; Life Cycle Date: 07/20/2014 ; Life Cycle Status: Active ; Vocabulary: SNOMED CT Heart murmur (SNOMED CT :031681971 ) Name of Problem: Heart murmur ; Recorder: RAVEN REILLY RN; Confirmation: Confirmed ; Classification: Patient Stated ; Code: 072475287 ; Contributor System: PowerChart ; Last Updated: 07/20/2014 9:33 EDT ; Life Cycle Date: 07/20/2014 ; Life Cycle Status: Active ; Vocabulary: SNOMED CT History of obstructive sleep apnea (IMO :51816899 ) Name of Problem: History of obstructive sleep apnea ; Recorder: SYSTEM, SYSTEM; Confirmation: Confirmed ; Classification: Medical ; Code: 38822661 ; Last Updated: 01/20/2019 12:39 EDT ; Life Cycle Date: 01/20/2019 ; Life Cycle Status: Active ; Vocabulary: IMO HLD - Hyperlipidemia (SNOMED CT :688035597 ) Name of Problem: HLD - Hyperlipidemia ; Recorder: MARIO SRIVASTAVA RN; Confirmation: Confirmed ; Classification: Medical ; Code: 728604584 ; Contributor System: PowerChart ; Last Updated: 12/11/2020 13:20 EST ; Life Cycle Status: Active ; Vocabulary: SNOMED CT HTN - Hypertension (SNOMED CT :0177757159 ) Name of Problem: HTN - Hypertension ; Recorder: MARIO SRIVASTAVA RN; Confirmation: Confirmed ; Classification: Medical ; Code: 5066653265 ; Contributor System: PowerChart ; Last Updated: 12/11/2020 13:20 EST ; Life Cycle Status: Active ; Vocabulary: SNOMED CT Hyperlipidemia (SNOMED CT :96960892 ) Name of Problem: Hyperlipidemia ; Recorder: RAVEN REILLY RN; Confirmation: Confirmed ; Classification: Patient Stated ; Code: 22939283 ; Contributor System: PowerChart ; Last Updated: 09/03/2017 13:38 EST ; Life Cycle Date: 07/20/2014 ; Life Cycle Status: Active ; Vocabulary: SNOMED CT Hypertension (SNOMED CT :97862689 ) Name of Problem: Hypertension ; Recorder: RAVEN REILLY RN; Confirmation: Confirmed ; Classification: Patient Stated ; Code: 88601984 ; Contributor System: PowerChart ; Last Updated: 07/20/2014 9:33 EDT ; Life Cycle Date: 07/20/2014 ; Life Cycle Status: Active ; Vocabulary: SNOMED CT Impaired vision (SNOMED CT :43402158 ) Name of Problem: Impaired vision ; Recorder: RAVEN REILLY RN; Confirmation: Confirmed ; Classification: Patient Stated ; Code: 67053817 ; Contributor System: Partly MarketplaceChart ; Last Updated: 07/20/2014 9:32 EDT ; Life Cycle Date: 07/20/2014 ; Life Cycle Status: Active ; Vocabulary: SNOMED CT Migraine (SNOMED CT :54857602 ) Name of Problem: Migraine ; Recorder: RAVEN REILLY RN; Confirmation: Confirmed ; Classification: Patient Stated ; Code: 24026848 ; Contributor System: PowerChart ; Last Updated: 07/20/2014 9:35 EDT ; Life Cycle Date: 07/20/2014 ; Life Cycle Status: Active ; Vocabulary: SNOMED CT Stented coronary artery (SNOMED CT :4504433133 ) Name of Problem: Stented coronary artery ; Recorder: RAVEN REILLY RN; Confirmation: Confirmed ; Classification: Patient Stated ; Code: 4512574696 ; Contributor System: advisorCONNECT ; Last Updated: 07/20/2014 9:33 EDT ; Life Cycle Date: 07/20/2014 ; Life Cycle Status: Active ; Vocabulary: SNOMED CT Type 2 diabetes mellitus (SNOMED CT :617554451 ) Name of Problem: Type 2 diabetes mellitus ; Recorder: MARIO SRIVASTAVA RN; Confirmation: Confirmed ; Classification: Medical ; Code: 770527674 ; Contributor System: PowerChart ; Last Updated: 12/11/2020 13:20 EST ; Life Cycle Status: Active ; Vocabulary: SNOMED CT Diagnoses(Active) Syncope/Near syncope Date: 04/22/2022 ; Diagnosis Type: Reason For Visit ; Confirmation: Complaint of ; Clinical Dx: Syncope/Near syncope ; Classification: Medical ; Clinical Service: Emergency medicine ; Code: PNED ; Probability: 0 ; Diagnosis Code: [id number] ED Height and Weight Height Source : Stated Height Entry Format : Colbert Height, Feet : 5 ft(Converted to: 152 cm, 60 Inch) Height, Inches : 9 Inch(Converted to: 0 ft 9 Inch, 22.86 cm) Clinical Height : 175.26 cm Weight Source, ED : Critical estimated dosing weight Weight Entry Format : Colbert Weight, Pounds : 187 lb Clinical Dosing Weight : 85 kg Body Surface Area (BSA) : 2.01 m2 Body Mass Index : 27.7 kg/m2 ([place]) [place] Body Weight (IBW) : 69.73 kg ASHLEY DING RN - 04/22/2022 9:15 EDT documented in this encounter Plan of Treatment Not on file documented as of this encounter Visit Diagnoses Not on filedocumented in this encounter Care Teams Cotton Grower Relationship Specialty Start Date End Date Marielos Amaral APRN [address] [address] PCP - General Nurse Practitioner 08/18/23 documented as of this encounter
--- OUTSIDE RECORDS SUMMARY | 2025-05-16 11:09 | XMS_ITS | Encounter Summary ---
Author Organization [employer] ([place], [place], [place], [place]) Address [address] [place] [address] Care Team Providers Care Rental Representative Name Role Phone Marielos Amaral KAYE Primary Care Provider Encounter Details Date Type Department Care Team (Late st Contact Info) Description 02/09/2019 Transcribed Document [facility] [place] [address] [place] [address] ProviderHaroldo MD [address] [place] [address] Social History Tobacco Use Types Packs/Day Years [...] Plan: HUMANA GOLD PLUS HMO Policy Number: [id number] Authorization Number: PENDING IP Insurance Primary Name : Humana Choice Authorization Status-Primary : Notification only Auth/Referral Contact Name-Primary : Wenceslao Curran Authorization Number-Primary : [id number] Authorized Service Begin Date-Primary : 02/05/2019 EDT Observation Authorization Nbr-Primary : [id number] submitted for inpatient Historical Authorization Comments-Primary : Comment 1: inpt auth is pending per availity trans id# [id number] (DIONE REY, Quad Stayer 02/08/2019 09:43) Comment 2: setup case for [...] on filedocumented in this encounter Care Teams Rental Representative Relationship Specialty Start Date End Date Marielos Amaral, IDENTITY MANAGEMENT DEVELOPER [address] [id number] PCP - General Nurse Practitioner 08/18/23 documented as of this encounter
--- OUTSIDE RECORDS SUMMARY | 2025-05-16 11:09 | XMS_ITS | Encounter Summary ---
Author Organization [employer] ([place], [place], [place], [place]) Address [address] [place] [address] Care Team Providers Care Sheet Metal Technician Name Role Phone Munir Marielos RESTREPO Primary Care Provider Encounter Details Date Type Department Care Team (Late st Contact Info) Description 04/22/2022 Transcribed Document [facility] [place] Medicine [address] [place] [address] ProviderHaroldo MD [address] [place] [address] Social History Tobacco Use Types [...] Do you speak a language other than Malagasy at [facility]? Yes 10/30/2024 Do [...] on filedocumented in this encounter Care Teams Sheet Metal Technician Relationship Specialty Start Date End Date Marielos Amaral, KAYE [address] [place] [address] PCP - General Nurse Practitioner 08/18/23 documented as of this encounter
--- OUTSIDE RECORDS SUMMARY | 2025-05-16 11:09 | XMS_ITS | Encounter Summary ---
Author Organization [employer] ([place], [place], [place], [place]) Address [address] [place] [address] Care Team Providers Care Comparator Operator Name Role Phone Marielos Amaral APRN Primary Care Provider Encounter Details Date Type Department Care Team (Late st Contact Info) Description 02/09/2019 Transcribed Document [facility] Radiology [address] [id number] Fidencio Tolliver MD [address] [place] [address] [address] [place] [address] Social History Tobacco Use Types Packs/Day Years [...] risk factors. CODE STATUS: Full code CONSULTS: [place] [facility] cardiology WORKUP / PROCEDURES: CT Head WO [...] approximately 50% stenosis of theproximal basilar artery. health safety instructor show mild stenosis proximally. IMPRESSION: 1. 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 Anterior circulation intact.3. Mild bilateral DRIVERS' CASH CLERK disease. This study was performed using dose [...] with the patient, and nursing staff and caseworker today. Health Status Allergies: Allergic Reactions (Selected) Severity Not Documented Amoxicillin- No reactions were documented. Mucinex- No reactions were documented. Current medications: (Selected) Inpatient Medications Ordered Colace: 100 mg, Oral, BID Eliquis: 5 mg, Oral, [id number] Flomax: 0.4 mg, Oral, Daily MiraLax: 17 [...] tablet 5 mg = 1 Tab, Oral, [id number] - new per cardiology and neurology. Flomax [...] on filedocumented in this encounter Care Teams Comparator Operator Relationship Specialty Start Date End Date Marielos Amaral APRN [address] [address] PCP - General Nurse Practitioner 08/18/23 documented as of this encounter
--- OUTSIDE RECORDS SUMMARY | 2025-05-16 11:09 | XMS_ITS | Encounter Summary ---
Author Organization [employer] ([place], [place], [place], [place]) Address [address] [place] [address] Care Team Providers Care Mortgage Closing Clerk Name Role Phone Munir Marielos RESTREPO Primary Care Provider [phone] Encounter Details Date Type Department Care Team (Late st Contact Info) Description 04/22/2022 Transcribed Document [facility] [place] [address] [place] [address] ProviderHaroldo MD [address] [place] [address] Social History Tobacco Use Types [...] Do you speak a language other than Israeli at [facility]? Yes 10/30/2024 Do [...] Renal ultrasound - No emergent need of PATIENT NAVIGATOR. Will follow. Thank you very much for the consult. Will follow along. [id number] Electronically signed by Brittany [facility] Conversion Ground Support Equipment Mechanic Pennyner at 01/24/2023 10:25 AM CDT documented in this encounter Plan of Treatment Not on file documented as of this encounter Visit Diagnoses Not on filedocumented in this encounter Care Teams Mortgage Closing Clerk Relationship Specialty Start Date End Date Marielos Amaral, FIBERGLASS ROLLER [address] [address] PCP - General Nurse Practitioner 08/18/23 documented as of this encounter
--- OUTSIDE RECORDS SUMMARY | 2025-05-16 11:09 | XMS_ITS | Encounter Summary ---
Author Organization [employer] ([place], [place], [place], [place]) Address [address] [place] [address] Care Team Providers Care Front Elevator Operator Name Role Phone Munir Marielos RESTREPO Primary Care Provider Encounter Details Date Type Department Care Team (Late st Contact Info) Description 04/22/2022 Transcribed Document [facility] [place] [address] [place] [address] ProviderHaroldo MD [address] [place] [address] Social History Tobacco Use Types [...] Do you speak a language other than Ghanaian at [facility]? Yes 10/30/2024 Do you want help [...] Unaccompanied Legal Guardian : No Support Person/Patient Tube Fitter : Yes Support Person/Pt Rep Name : Enriqueta - Contact Password : peanut Support Person/Pt Rep Contact Information : [phone], cell Want Family/Rep/Phys Notified of Admit : [...] head, neck, ot back pain. Jose M earth science faculty member. Information Obtained From : Patient Primary Language : Ghanaian Preferred Communication Mode : Verbal Communication Barrier : None Order Taker Needed : No Umer John Rn Flex [...] Level : 46 or > High Risk [place] Fall Interventions : Adequate lighting, Assistive devices [...] Source : Stated Height Entry Format : [place] Height, Feet : 5 ft(Converted to: 152 cm, 60 Inch) Height, Inches : 9 Inch(Converted to: 0 ft 9 Inch, 22.86 cm) Clinical Height : 175.26 cm Weight Source : Bed scale Weight Entry Format : [place] Clinical Dosing Weight : 85 kg Weight, Pounds : 187 lb Body Surface Area (BSA) : 2.01 m2 Body Mass Index : 27.7 kg/m2 (HI) [place] Body Weight : 70 kg Umer John [...] available. Pneumonia Immunization Received : Yes Umer John Rn Flex - 04/22/2022 22:36 EDT Order [...] John Rn Flex - 04/22/2022 22:36 EDT [place] Suicide Severity Rating Scale (C-SSRS) CSSRS Past [...] on filedocumented in this encounter Care Teams Front Elevator Operator Relationship Specialty Start Date End Date Marielos Amaral APRN [address] [phone] PCP - General Nurse Practitioner 08/18/23 documented as of this encounter
--- OUTSIDE RECORDS SUMMARY | 2025-05-16 11:09 | XMS_ITS | Encounter Summary ---
Author Organization [employer] ([place], [place], [place], [place]) Address [address] [place] [address] Care Team Providers Care Electric Lineman Name Role Phone Marielos Amaral KAYE Primary Care Provider Encounter Details Date Type Department Care Team (Late st Contact Info) Description 02/09/2019 Transcribed Document [facility] [place] [address] [place] [address] ProviderHaroldo MD [address] [place] [address] Social History Tobacco Use Types Packs/Day Years Used Date Smoking Tobacco: Never Assessed Sex and Gender Information Value Date Recorded Sex Assigned at Not on file Legal Sex Male 3:45 PM CDT Gender Identity Not on file Sexual Orientation Not on file documented as of this encounter Miscellaneous Notes * [employer]ner Conversion Note - Haroldo ProviderMD - 02/09/2019 2:00 AM CDT Curator Of Education Details Entered On: 02/09/2019 3:10 EDT Performed [...] on filedocumented in this encounter Care Teams Electric Lineman Relationship Specialty Start Date End Date Marielos Amaral, BARTENDERS [address] [phone] PCP - General Nurse Practitioner 08/18/23 documented as of this encounter
--- OUTSIDE RECORDS SUMMARY | 2025-05-16 11:09 | XMS_ITS | Encounter Summary ---
Author Organization [employer] ([place], [place], [place], [place]) Address [address] [place] [address] Care Team Providers Care Skin Tanner Name Role Phone Munir Marielos RESTREPO Primary Care Provider Encounter Details Date Type Department Care Team (Late st Contact Info) Description 04/29/2022 Transcribed Document [facility] [place] [address] [place] [address] ProviderHaroldo MD [address] [place] [address] Social History Tobacco Use Types [...] speak a language other than Montserratian at [facility]? Yes 10/30/2024 Do you want [...] On: 04/29/2022 14:17 EDT by Kari Chaudhary, Wind Turbine Installer Primary Insurance Authorization Authorization and Policy Numbers : Insurance 1 Health Plan: AN[employer]M MEDICARE REPL Policy Number: [id number] Authorization Number: Insurance Primary Name : AN[employer]M MEDICARE REPL Policy Number: [id number] Authorization Status-Primary : Awaiting callback Auth/Referral Contact Name-Primary : DC Reference Number-Primary : [id number] Authorized Service Begin Date-Primary : 04/22/2022 EDT Authorization Comments-Primary : Discharge summary as well as continued stay clinical 04/24 - discharge faxed. Historical Authorization Comments-Primary : Comment 1: Request for inpt auth submitted via [facility] Ref# [id number] received;clinicals attached. (Radha Dillon RN 04/23/2022 18:56) Kari Chaudhary, Wind Turbine Installer - 04/29/2022 14:17 EDT Electronically signed by Brittany [facility] Conversion Recruitment And Outreach Assistant Cerner at 01/24/2023 10:26 AM CDT documented in this encounter Plan of Treatment Not on file documented as of this encounter Visit Diagnoses Not on filedocumented in this encounter Care Teams Skin Tanner Relationship Specialty Start Date End Date Marielos Amaral, DIRECTOR DANCE [address] [place] [address] PCP - General Nurse Practitioner 08/18/23 documented as of this encounter
--- OUTSIDE RECORDS SUMMARY | 2025-05-16 11:09 | XMS_ITS | Encounter Summary ---
Author Organization [employer] ([place], [place], [place], [place]) Address [address] [place] [address] Care Team Providers Care Electric Appliance Installer Name Role Phone Marielos Amaral KAYE Primary Care Provider Encounter Details Date Type Department Care Team (Late st Contact Info) Description 02/09/2019 Transcribed Document [facility] [place] [address] [place] [address] ProviderHaroldo MD [address] [place] [address] Social History Tobacco Use Types Packs/Day Years [...] Plan: HUMANA GOLD PLUS HMO Policy Number: [id number] Authorization Number: PENDING IP Insurance Primary Name : Humana Choice Authorization Status-Primary : Notification only Auth/Referral Contact Name-Primary : Wenceslao Curran Authorization Number-Primary : [id number] Authorized Service Begin Date-Primary : 02/05/2019 EDT Observation Authorization Nbr-Primary : [id number] Historical Authorization Comments-Primary : Comment 1: inpt auth is pending per availity trans id# [id number] (DIONE REY, Liquefied Natural Gas Operator 02/08/2019 09:43) Comment 2: setup case for IP on availity. faxed clinicals via [employer]ner. (GEGE JUÁREZ RN 02/07/2019 11:56) Comment 3: setup on availity obs approved. (GEGE JUÁREZ RN 02/06/2019 08:52) Mary Haynes Rn-Utilization Review - 02/09/2019 9:06 EDT Electronically signed by Brittany [facility] Conversion Hse Advisor Cerner at 01/24/2023 10:44 AM CDT documented in this encounter Plan of Treatment Not on file documented as of this encounter Visit Diagnoses Not on filedocumented in this encounter Care Teams Electric Appliance Installer Relationship Specialty Start Date End Date Marielos Amaral, ETL ANALYST DEVELOPER [address] [phone] PCP - General Nurse Practitioner 08/18/23 documented as of this encounter
--- OUTSIDE RECORDS SUMMARY | 2025-05-16 11:09 | XMS_ITS | Encounter Summary ---
Author Organization [employer] ([place], [place], [place], [place]) Address [address] [place] [address] Care Team Providers Care District Court Justice Name Role Phone Marielos Amaral KAYE Primary Care Provider Encounter Details Date Type Department Care Team (Late st Contact Info) Description 02/09/2019 Transcribed Document [facility] [place] [address] [place] [address] ProviderHaroldo MD [address] [place] [address] Social History Tobacco Use Types Packs/Day Years [...] Chaudhary, Sharri-Flex Team - 02/09/2019 9:48 EDT Electronically signed by Renetta Soto Conversion Retail Merchandising Coordinator Pennyner at 01/24/2023 10:34 AM CDT documented in this encounter Plan of Treatment Not on file documented as of this encounter Visit Diagnoses Not on filedocumented in this encounter Care Teams District Court Justice Relationship Specialty Start Date End Date Marielos Amaral, LUMBER TRIPPER [address] [place] [address] PCP - General Nurse Practitioner 08/18/23 documented as of this encounter
--- OUTSIDE RECORDS SUMMARY | 2025-05-16 11:09 | XMS_ITS | Encounter Summary ---
Author Organization [employer] ([place], [place], [place], [place]) Address [address] [place] [address] Care Team Providers Care Junior Linux Administrator Name Role Phone AmaralMarielos KAYE Primary Care Provider Encounter Details Date Type Department Care Team (Late st Contact Info) Description 11/01/2020 Transcribed Document [facility] [place] [address] [place] [address] ProviderHaroldo MD [address] [place], [place] [address] Social History Tobacco Use Types Packs/Day Years Used Date Smoking Tobacco: Never Assessed Sex and Gender Information Value Date Recorded Sex Assigned at Not on file Legal Sex Male 3:45 PM CDT Gender Identity Not on file Sexual Orientation Not on file documented as of this encounter Miscellaneous Notes * [employer]ner Conversion Note - Historical ProviderMD - 11/01/2020 8:30 PM SOOT BLOWER CR Chest 1 Vw Portable Ordered: 10/31/2020 Modified Reason for Exam: SOA 11/01/2020 08:09 11/01/2020 20:30 (ANABELA FRENCH PA) Reviewed by Provider, No further action required X1 - Noted/treated 11/01/2020 11:31 (ANISA CRAVEN) Provider Review Required documented in this encounter Plan of Treatment Not on file documented as of this encounter Visit Diagnoses Not on filedocumented in this encounter Care Teams Junior Linux Administrator Relationship Specialty Start Date End Date Marielos Amaral, HANDLING TECH [address] [place] [address] PCP - General Nurse Practitioner 08/18/23 documented as of this encounter
--- OUTSIDE RECORDS SUMMARY | 2025-05-16 11:09 | XMS_ITS | Encounter Summary ---
Author Organization [employer] ([place], [place], [place], [place]) Address [address] [place] [address] Care Team Providers Care Air Press Operator Name Role Phone Munir Marielos RESTREPO Primary Care Provider [phone] Encounter Details Date Type Department Care Team (Late st Contact Info) Description 04/22/2022 Transcribed Document [facility] [place] [address] [place] [address] ProviderHaroldo MD [address] [place] [address] Social History Tobacco Use Types [...] Do you speak a language other than German at [facility]? Yes 10/30/2024 Do you want help with [...] 04/22/2022 11:13 EDT Electronically signed by Brittany [facility] Conversion Data Analyst Etl Developer Cerner at 01/24/2023 10:31 AM CDT documented in this encounter Plan of Treatment Not on file documented as of this encounter Visit Diagnoses Not on filedocumented in this encounter Care Teams Air Press Operator Relationship Specialty Start Date End Date Marielos Amaral, REPORTING CONSULTANT [address] [address] PCP - General Nurse Practitioner 08/18/23 documented as of this encounter
--- OUTSIDE RECORDS SUMMARY | 2025-05-16 11:09 | XMS_ITS | Encounter Summary ---
Author Organization [employer] ([place], [place], [place], [place]) Address [address] [place] [address] Care Team Providers Care Wallcovering Hanger Name Role Phone Marielos Amaral KAYE Primary Care Provider Encounter Details Date Type Department Care Team (Late st Contact Info) Description 12/12/2020 Transcribed Document [facility] Family Medicine [address] [place] [address] ProviderHaroldo MD [address] [place] [address] Social History Tobacco Use Types Packs/Day Years Used Date Smoking Tobacco: Never Assessed Sex and Gender Information Value Date Recorded Sex Assigned at Not on file Legal Sex Male 3:45 PM CDT Gender Identity Not on file Sexual Orientation Not on file documented as of this encounter Miscellaneous Notes * [employer]ner Conversion Note - Historical ProviderMD - 12/12/2020 9:16 AM HAND PASTER Pre Procedure Adult Entered On: 12/12/2020 9:22 EST Performed On: 12/12/2020 9:16 EST by Marielle Ward RN Height and Weight, Clinical Dosing Height Source : Stated Height Entry Format : [place] Height, Feet : 5 ft(Converted to: 152 cm, 60 Inch) Height, Inches : 9 Inch(Converted to: 0 ft 9 Inch, 22.86 cm) Clinical Height : 175.26 cm Weight Source : Standing scale Weight Entry Format : [place] Clinical Dosing Weight : 89.55 kg Weight, Pounds : 197 lb Body Surface Area (BSA) : 2.05 m2 Body Mass Index : 29.2 kg/m2 (HI) [place] Body Weight : 70 kg Marielle Ward [...] Home Treatments : Blood glucose monitoring Marielle Wrad RN - 12/12/2020 9:16 EST [place] Suicide Severity Rating Scale (C-SSRS) CSSRS Past [...] Clint Legal Guardian : No Support Person/Patient Golf Course Laborer : Yes Support Person/Pt Rep Name : Enriqueta - Contact Password : melanie Support Person/Pt Rep Contact Information : [phone], cell Want Family/Rep/Phys Notified of Admit : No Emergency Contact #1 : na Emergency Contact #1 Phone Number : nan Emergency Contact #1 Relationship : na Emergency Contact #2 : na Emergency Contact #2 Phone Number : na Emergency Contact #2 Relationship : na Primary Language : Cameroonian Preferred Communication Mode : Verbal Communication Barrier : None [employer] Solutions Teammate Needed : No Marielle Ward RN - [...] Scale Risk Level : 0-24 Low Risk [place] Fall Interventions : Adequate lighting, Assistive devices [...] on filedocumented in this encounter Care Teams Wallcovering Hanger Relationship Specialty Start Date End Date Marielos Amaral, INBOUND SALES MANAGER [address] [place] [address] PCP - General Nurse Practitioner 08/18/23 documented as of this encounter
--- OUTSIDE RECORDS SUMMARY | 2025-05-16 11:09 | XMS_ITS | Encounter Summary ---
Author Organization [employer] ([place], [place], [place], [place]) Address [address] [place] [address] Care Team Providers Care Direct Care Staffer Name Role Phone Marielos Amaral KAYE Primary Care Provider [phone] Encounter Details Date Type Department Care Team (Late st Contact Info) Description 02/09/2019 Transcribed Document [facility] [place] [address] [place] [address] ProviderHaroldo MD [address] [place] [address] Social History Tobacco Use Types Packs/Day Years [...] On: 02/09/2019 15:14 EDT by Melany Velasquez Hide Washer Discharge Summary Discharge Summary Provider Notified : Nursing, Physical Therapy Reason for Discharge : Discharge order Discharged to, Therapy : Outpatient rehabilitation Melany Velasquez Hide Washer - 02/09/2019 15:14 EDT Discharge Summary Comment, PT : pt has discharge orders in from hospital to home with outpatient rehab, per last PTx - pt compeletely independent for bed mobility and transfers, pt ambulated 100' x 2 with supervision and no AD, pt ascended/descended 10 stairs with supervision. PT has reviewed and agrees with note. JACQUELYN KIM, PT - 02/09/2019 15:48 EDT Net C Developer Goals Mobility/Bed Mobility LTG PT Grid Goal #1 Goal #2 Activity : Supine to sit Sit to stand Assist : Independent, complete Independent, complete Date to Meet : 02/20/2019 EDT 02/20/2019 EDT Goal Status : Goal met Goal met Date Met : 02/07/2019 EDT 02/07/2019 EDT Comment : HOB flat Melany Velasquez Hide Washer - 02/09/2019 15:14 EDT Melany Velasquez Hide Washer - 02/09/2019 15:14 EDT Ambulation LTG Grid Goal #1 Device : Other: no AD vs SPC Distance : 300 ft Assist : Independent, modified Date to Meet : 02/20/2019 EDT Goal Status : Goal met Date Met : 10/06/2018 EST Melany Velasquez Hide Washer - 02/09/2019 15:14 EDT Stairs LTG Grid Goal #1 Device : None Number of Steps : 4 Handrail(s) : One handrail Assist : Independent, modified Date to Meet : 02/21/2019 EDT Goal Status : Not met Melany Velasquez Hide Washer - 02/09/2019 15:14 EDT documented in this encounter Plan of Treatment Not on file documented as of this encounter Visit Diagnoses Not on filedocumented in this encounter Care Teams Direct Care Staffer Relationship Specialty Start Date End Date Marielos Amaral, KAYE [address] [address] PCP - General Nurse Practitioner 08/18/23 documented as of this encounter
--- OUTSIDE RECORDS SUMMARY | 2025-05-16 11:09 | XMS_ITS | Encounter Summary ---
Author Organization [employer] ([place], [place], [place], [place]) Address [address] [place] [address] Care Team Providers Care Animal Nurse Name Role Phone Marielos Amaral KAYE Primary Care Provider Encounter Details Date Type Department Care Team (Late st Contact Info) Description 02/09/2019 Transcribed Document [facility] [place] [facility] [place] [address] ProviderHaroldo MD [address] [place] [address] Social History Tobacco Use Types Packs/Day Years [...] these instructions at home: Medicines ??? Take uzvv-[id number]-onbnrja and prescription medicines only as told by [...] 09/22/2006 Document Revised: 03/04/2017 Document Reviewed: 12/18/2016 [employer] Interactive Patient Education ? 2017 [employer] Weakness Weakness is a lack of [...] 09/04/2009 Document Revised: 03/23/2013 Document Reviewed: 07/12/2016 [employer] Interactive Patient Education ? 2017 [employer] documented in this encounter Plan of Treatment Not on file documented as of this encounter Visit Diagnoses Not on filedocumented in this encounter Care Teams Animal Nurse Relationship Specialty Start Date End Date Marielos Amaral, KAYE [address] [address] PCP - General Nurse Practitioner 08/18/23 documented as of this encounter
--- OUTSIDE RECORDS SUMMARY | 2025-05-16 11:09 | XMS_ITS | Encounter Summary ---
Author Organization [employer] ([place], [place], [place], [place]) Address [address] [place] [address] Care Team Providers Care Instructor Correspondence School Name Role Phone Marielos Amaral KAYE Primary Care Provider Encounter Details Date Type Department Care Team (Late st Contact Info) Description 02/09/[address] [facility] [place] [address] [place] [address] ProviderHaroldo MD [address] [place] [address] Social History Tobacco Use Types Packs/Day Years [...] 02/09/2019 14:15 EDT Electronically signed by Brittany [facility] Conversion Senior Clinician Cerner at 01/24/2023 10:39 AM CDT documented in this encounter Plan of Treatment Not on file documented as of this encounter Visit Diagnoses Not on filedocumented in this encounter Care Teams Instructor Correspondence School Relationship Specialty Start Date End Date Marielos Amaral, WAITER/WAITRESS CABIN CLASS [address] [place] [address] PCP - General Nurse Practitioner 08/18/23 documented as of this encounter
--- OUTSIDE RECORDS SUMMARY | 2025-05-16 11:09 | XMS_ITS | Encounter Summary ---
Author Organization [employer] ([place], [place], [place], [place]) Address [address] [place] [address] Care Team Providers Care Internal Grinder Name Role Phone Marielos Amaral KAYE Primary Care Provider Encounter Details Date Type Department Care Team (Late st Contact Info) Description 10/31/2020 Transcribed Document [facility] [place] [address] [place] [address] ProviderHaroldo MD [address] [place], [place] [address] Social History Tobacco Use Types Packs/Day Years Used Date Smoking Tobacco: Never Assessed Sex and Gender Information Value Date Recorded Sex Assigned at Not on file Legal Sex Male 3:45 PM CDT Gender Identity Not on file Sexual Orientation Not on file documented as of this encounter Miscellaneous Notes * [employer]ner Conversion Note - Historical ProviderMD - 10/31/2020 11:42 PM TELE GROUT SEWER LINE REPAIRER Broset Violence Assessment Entered On: 11/01/2020 1:33 EST Performed On: 11/01/2020 1:32 EST by Cara Butler Rn Broset Violence Assessment Broset Violence Checklist of Symptoms : None Broset Violence Symptoms Subtotal : 0 Broset Violence Symptoms Indicator : Low risk (0) Cara Butler Rn - 11/01/2020 1:32 EST Electronically signed by Brittany [facility] Conversion Reel Fed Printer [employer] at 01/24/2023 10:37 AM CDT documented in this encounter Plan of Treatment Not on file documented as of this encounter Visit Diagnoses Not on filedocumented in this encounter Care Teams Internal Grinder Relationship Specialty Start Date End Date Marielos Amaral, KAYE [address] [place] [address] PCP - General Nurse Practitioner 08/18/23 documented as of this encounter
--- OUTSIDE RECORDS SUMMARY | 2025-05-16 11:09 | XMS_ITS | Encounter Summary ---
Author Organization [employer] ([place], [place], [place], [place]) Address [address] [place] [address] Care Team Providers Care Catalyst Operator Name Role Phone AmaralMarielos roque KAYE Primary Care Provider [phone] Encounter Details Date Type Department Care Team (Late st Contact Info) Description 12/12/2020 Transcribed Document [facility] [place] [facility] [place] [address] ProviderHaroldo MD [address] [place], [place] [address] Social History Tobacco Use Types Packs/Day Years Used Date Smoking Tobacco: Never Assessed Sex and Gender Information Value Date Recorded Sex Assigned at Not on file Legal Sex Male 3:45 PM CDT Gender Identity Not on file Sexual Orientation Not on file documented as of this encounter Miscellaneous Notes * Cerner Conversion Note - Haroldo ProviderMD - 12/12/2020 3:20 PM BLEACHER SULFITE PULP Patient Education Materials Follows: Groin Site Care [...] Document Reviewed: 10/25/2011 ExitCare? Patient Information ?2013 [employer]. Heart-Healthy Eating Plan Heart-healthy meal planning includes: [...] Fats and oils Meat fat, or shortening. [place] butter, hydrogenated oils, palm oil, coconut oil, [...] 03/23/2013 Document Revised: 11/26/2018 Document Reviewed: 10/30/2018 [employer] Patient Education ? 2020 [employer] Moderate Conscious Sedation, Adult, Care After [...] you are awake and alert. ??? Take iakj-lkz-qkzpkua and prescription medicines only as told by [...] 07/13/2014 Document Revised: 09/04/2018 Document Reviewed: 01/11/2017 [employer] Patient Education ? 2020 [employer]. FAQ - Patient COVID-19 testing Why do [...] through the local health department and the [place] Department for Public Health. Those organizations are [...] and need to call 911, notify the irrigating pump operator that you have, or think you [...] clean your hands with an alcohol-based hand bindery production manager that contains at least 60% alcohol. Clean your hands often. ??? Wash hands: Wash your hands often with soap and water for at least 20 seconds when visibly dirty. This is especially important after blowing your nose, coughing or sneezing, and going to the bathroom, and before eating or preparing food. ??? Hand bindery production manager: Use an alcohol-based hand bindery production manager with at least 60% alcohol, covering all [...] and water or put them in the bandoleer straightener stamper. Clean all high-touch surfaces every day. Clean [...] or body fluids on them. ??? Household log peeler and disinfectants: Clean the area or item [...] list of disinfectants can be found here: https://www.epa.gov/pesticide-registration/lyly-w-muzgjusxiaewy-bkd-ilerjud-ec rs-cov-2 Radiology Coronary Angiogram A coronary angiogram [...] including vitamins, herbs, eye drops, creams, and azpl-pwt-quhevhv medicines. ??? Any problems you or family [...] 03/28/2004 Document Revised: 09/04/2018 Document Reviewed: 07/04/2017 [employer] Patient Education ? 2020 [employer]. documented in this encounter Plan of Treatment Not on file documented as of this encounter Visit Diagnoses Not on filedocumented in this encounter Care Teams Catalyst Operator Relationship Specialty Start Date End Date Marielos Amaral APRN [address] [address] PCP - General Nurse Practitioner 08/18/23 documented as of this encounter
--- OUTSIDE RECORDS SUMMARY | 2025-05-16 11:09 | XMS_ITS | Encounter Summary ---
Author Organization [employer] ([place], [place], [place], [place]) Address [address] [place] [address] Care Team Providers Care Clinical Administrator Name Role Phone AmaralMarielos KAYE Primary Care Provider Encounter Details Date Type Department Care Team (Late st Contact Info) Description 11/01/2020 Transcribed Document [facility] [place] [address] [place] [address] ProviderHaroldo MD [address] [place] [address] Social History Tobacco Use Types Packs/Day Years Used Date Smoking Tobacco: Never Assessed Sex and Gender Information Value Date Recorded Sex Assigned at Not on file Legal Sex Male 3:45 PM CDT Gender Identity Not on file Sexual Orientation Not on file documented as of this encounter Miscellaneous Notes * Cerner Conversion Note - Haroldo ProviderMD - 11/01/2020 1:58 AM APPLICATIONS DEVELOPER [facility] [place] [address] ZACKARY ANTOINE JOYCE :1950 Visit Time:10/31/2020 [...] Within 2 to 3 days Where: [address] [facility] [address] [place] [address] Business (1) Follow Up with KATELYN MCKEON When Within 2 to 3 days Where: [address] [place] [address] [facility] (1) Allergies Mucinex amoxicillin Immunizations This Visit No Immunizations Found Medications What How Much When Instructions Next Dose bumetanide (bumetanide 1 mg oral tablet) 1 Tablet(s) Oral Every Day Duration: 7 Day(s) Pickup at [facility] 493 acetaminophen (Tylenol 325 mg oral tablet) [...] 1 Capsule(s) Oral Every Day Pharmacy Information [facility] 493: [phone] [phone] The home medications listed are only as [...] range between ( 0.0 and 7.0 ) [place] #: 0.92 K/uL -- Normal range between ( 0.16 and 1.00 ) [place] #: 0.21 x10(3)/uL -- Normal range between ( 0.00 and 0.80 ) [place] %: 9.7 % -- Normal range between [...] these instructions at home: Medicines ??? Take cgjg-fdo-yigqmaf and prescription medicines only as told by your health care provider. ??? Do not stop taking your medicines or change the amount you take. If you are having problems or side effects from your medicines, talk to your health care provider. ??? If you are having difficulty paying for your medicines, contact a social media marketing analyst or your clinic. There are many programs [...] Assistance with quitting is available by contacting 5-608-WOSENOW. This is a free resource providing counseling, support, and referral. Or you may contact your personal physician. [employer] Suicide Prevention Lifeline: The National Suicide Prevention [...] was given the opportunity to ask questions. Patient/Welder Name: Patient/Welder Signature: Relationship to Patient: Clinician/Hospital Welder Signature: Please Provide a Telephone Number Where You Can Be Reached: Is it Permissible To Leave a Message? Date: documented in this encounter Plan of Treatment Not on file documented as of this encounter Visit Diagnoses Not on filedocumented in this encounter Care Teams Clinical Administrator Relationship Specialty Start Date End Date Marielos Amaral APRN [address] [address] PCP - General Nurse Practitioner 08/18/23 documented as of this encounter
--- OUTSIDE RECORDS SUMMARY | 2025-05-16 11:09 | XMS_ITS | Encounter Summary ---
Author Organization [employer] ([place], [place], [place], [place]) Address [address] [place] [address] Care Team Providers Care Clinical Education Consultant Name Role Phone Marielos Amaral KAYE Primary Care Provider Encounter Details Date Type Department Care Team (Late st Contact Info) Description 02/08/2019 Transcribed Document [facility] [place] Medicine [address] [place] [address] ProviderHaroldo MD [address] [place] [address] Social History Tobacco Use Types Packs/Day Years Used Date Smoking Tobacco: Never Assessed Sex and Gender Information Value Date Recorded Sex Assigned at Not on file Legal Sex Male 3:45 PM CDT Gender Identity Not on file Sexual Orientation Not on file documented as of this encounter Miscellaneous Notes * [employer] Conversion Note - Haroldo ProviderMD - 02/08/2019 2:00 AM CDT [place] Details Entered On: 02/08/2019 3:35 EDT Performed [...] filedocumented in this encounter Care Teams Clinical Education Consultant Relationship Specialty Start Date End Date Marielos Amaral, FIELD CROP FARMWORKER [address] [address] PCP - General Nurse Practitioner 08/18/23 documented as of this encounter
--- OUTSIDE RECORDS SUMMARY | 2025-05-16 11:09 | XMS_ITS | Encounter Summary ---
Author Organization [email or web address] ([place], [place], [place], [place]) Address [address] [place] [address] Care Team Providers Care Manager Water Name Role Phone Marielos Amaral KAYE Primary Care Provider [phone] Encounter Details Date Type Department Care Team (Late st Contact Info) Description 12/12/2020 Transcribed Document [facility] [place] [facility] [place] [address] ProviderHaroldo MD [address] [place], [place] [address] Social History Tobacco Use Types Packs/Day Years Used Date Smoking Tobacco: Never Assessed Sex and Gender Information Value Date Recorded Sex Assigned at Not on file Legal Sex Male 3:45 PM CDT Gender Identity Not on file Sexual Orientation Not on file documented as of this encounter Miscellaneous Notes * Cerner Conversion Note - Historical ProviderMD - 12/12/2020 4:42 PM BARN AND PROPERTY MANAGER Nursing Discharge Summary Entered On: 12/12/2020 16:43 [...] - 12/12/2020 16:42 EST Electronically signed by [facility] Conversion Electric Spot Welder Cerner at 01/24/2023 10:20 AM CDT documented in this encounter Plan of Treatment Not on file documented as of this encounter Visit Diagnoses Not on filedocumented in this encounter Care Teams Manager Water Relationship Specialty Start Date End Date Marielos Amaral, CLINICAL RESEARCH ANALYST [address] [place] [address] PCP - General Nurse Practitioner 08/18/23 documented as of this encounter
--- OUTSIDE RECORDS SUMMARY | 2025-05-16 11:09 | XMS_ITS | Encounter Summary ---
Author Organization [employer] ([place], [place], [place], [place]) Address [address] [place] [address] Care Team Providers Care Commercial Floor Covering Installer Name Role Phone Marielos Amaral APRN Primary Care Provider Encounter Details Date Type Department Care Team (Late st Contact Info) Description 12/12/2020 Transcribed Document [facility] Cardiology [address] [place] [address] [place] [address] [place] [address] [address] [place] [address] Social History Tobacco Use Types Packs/Day Years [...] None Author: MARIAM SALGUERO MD-CAR Basic Information Software Licensing Specialist: Mariam Salguero Chief Complaint Abnormal stress History [...] Refill(s) Problem list: All Problems Angina / [id number] / Confirmed Acute cerebrovascular accident (CVA) / 483169669 / Confirmed Coronary artery disease / 2343401372 / Confirmed Diabetes mellitus type II / 16637972 / Confirmed GERD - Gastro-esophageal reflux disease / 3948167002 / Confirmed Heart failure / 091565343 / Confirmed Heart murmur / 238200854 / Confirmed History of obstructive sleep apnea / 34737574 / Confirmed Hyperlipidemia / 37227346 / Confirmed Hypertension / 23382762 / Confirmed Impaired vision / 28392612 / Confirmed Enlarged prostate / 111981154 / Confirmed Migraine / 23161473 / Confirmed Stented coronary artery / 5450833183 / Confirmed Histories No education data available. [...] 0.5 Past Medical History: Active Atrial fibrillation (70460029) CAD - Coronary artery disease (2674674439) Cardiomyopathy (703947317) HLD - Hyperlipidemia (406609170) HTN - Hypertension (6408428935) Type 2 diabetes mellitus (208643072) Family History: Patient was adopted. No family history items have been selected or recorded. Procedure history: Cardiac catheterization. hernia repair. Tonsillectomy. Cholecystectomy; (69326). Appendectomy. left arm surgery. Coronary stents. EGD - Esophagogastroduodenoscopy ([id number]). Comments: 04/12/2020 7:04 EDT - Roxana Brady, RN with radio frequency ablation CABG x 4 - Coronary artery bypass grafts x 4 ([id number]). Physical Examination VS/Measurements No qualifying data available [...] Normal strength, No deformity. Integumentary: Warm, Dry, Marked Tree, No rash. Neurologic: Alert, Oriented, No focal [...] consent will be obtained. Further recommendations pending [facility] results. documented in this encounter Plan of Treatment Not on file documented as of this encounter Visit Diagnoses Not on filedocumented in this encounter Care Teams Commercial Floor Covering Installer Relationship Specialty Start Date End Date Marielos Amaral, KAYE [address] [place] [address] PCP - General Nurse Practitioner 08/18/23 documented as of this encounter
--- OUTSIDE RECORDS SUMMARY | 2025-05-16 11:09 | XMS_ITS | Encounter Summary ---
Author Organization [employer] ([place], [place], [place], [place]) Address [address] [place] [address] Care Team Providers Care Sanitor Name Role Phone Munir Marielos RESTREPO Primary Care Provider [phone] Encounter Details Date Type Department Care Team (Late st Contact Info) Description 04/22/2022 Transcribed Document [facility] [place] Family Medicine [address] [place] [address] ProviderHaroldo MD [address] [place] [address] Social History Tobacco Use Types [...] speak a language other than Malagasy at [facility]? Yes 10/30/2024 Do you want [...] On: 04/22/2022 21:30 EDT by Cara Butler Chef Broiler Or Fry Process Patient Disposition : Admit/Observe Personal Belongings With Patient : Yes IV Discontinued : No Cara Butler Rn - 04/23/2022 0:58 EDT Admission, ED Nurse Report Accepted By : LUIS Owusu `Nurse Report (Hand Off) : Called Fluids/Drips Continued on Admission : Yes Mode Of Departure : Stretcher Cara Butler Rn - 04/23/2022 0:58 EDT Electronically signed by Brittany [facility] Conversion Learning Support Services Director Cerner at 01/24/2023 10:24 AM CDT documented in this encounter Plan of Treatment Not on file documented as of this encounter Visit Diagnoses Not on filedocumented in this encounter Care Teams Sanitor Relationship Specialty Start Date End Date Marielos Amaral, EQUITY ANALYST [address] [address] PCP - General Nurse Practitioner 08/18/23 documented as of this encounter
--- OUTSIDE RECORDS SUMMARY | 2025-05-16 11:09 | XMS_ITS | Encounter Summary ---
Author Organization [employer] ([place], [place], [place], [place]) Address [address] [place] [address] Care Team Providers Care Development Representative Name Role Phone Munir Marielos RESTREPO Primary Care Provider Encounter Details Date Type Department Care Team (Late st Contact Info) Description 04/22/2022 Transcribed Document [facility] [place] [address] [place] [address] ProviderHaroldo MD [address] [place] [address] Social History Tobacco Use Types [...] Do you speak a language other than Rwandan at [facility]? Yes 10/30/2024 Do you want [...] CARE BEDSIDE NON-EXEMPT - 04/22/2022 21:49 EDT Electronically signed by Donato Soto Conversion Horticultural Specialty Grower Inside Cerner at 01/24/2023 10:24 AM CDT documented in this encounter Plan of Treatment Not on file documented as of this encounter Visit Diagnoses Not on filedocumented in this encounter Care Teams Development Representative Relationship Specialty Start Date End Date Marielos Amaral, REMEDIATION PROJECT ENGINEER [address] [place] [address] PCP - General Nurse Practitioner 08/18/23 documented as of this encounter
--- OUTSIDE RECORDS SUMMARY | 2025-05-16 11:09 | XMS_ITS | Encounter Summary ---
Author Organization [employer] ([place], [place], [place], [place]) Address [address] [place] [address] Care Team Providers Care Outreach Counselor Name Role Phone Munir Marielos RESTREPO Primary Care Provider Encounter Details Date Type Department Care Team (Late st Contact Info) Description 04/22/2022 Transcribed Document [facility] [place] [address] [place] [address] ProviderHaroldo MD [address] [place] [address] Social History Tobacco Use Types [...] speak a language other than [facility]? Yes 10/30/2024 Do you want [...] Communication Barrier : None Primary Language : Stateless Any Spiritual/Cultural Needs or Requests : No [...] - 04/22/2022 10:02 EDT Electronically signed by [facility] Conversion Gear Shaper Cerner at 01/24/2023 10:25 AM CDT documented in this encounter Plan of Treatment Not on file documented as of this encounter Visit Diagnoses Not on filedocumented in this encounter Care Teams Outreach Counselor Relationship Specialty Start Date End Date Marielos Amaral, MAT MAKER [address] [place] [address] PCP - General Nurse Practitioner 08/18/23 documented as of this encounter
--- OUTSIDE RECORDS SUMMARY | 2025-05-16 11:09 | XMS_ITS | Encounter Summary ---
Author Organization [employer] ([place], [place], [place], [place]) Address [address] [place] [address] Care Team Providers Care Social Media Project Manager Name Role Phone Marielos Amaral KAYE Primary Care Provider Encounter Details Date Type Department Care Team (Late st Contact Info) Description 02/08/2019 Transcribed Document [facility] [place] Family Medicine [address] [place] [address] ProviderHaroldo MD [address] [place] [address] Social History Tobacco Use Types Packs/Day Years [...] on filedocumented in this encounter Care Teams Social Media Project Manager Relationship Specialty Start Date End Date Marielos Amaral APRN [address] [address] PCP - General Nurse Practitioner 08/18/23 documented as of this encounter
--- OUTSIDE RECORDS SUMMARY | 2025-05-16 11:09 | XMS_ITS | Clinical Summary ---
Author Organization [employer] ([place], [place], [place], [place]) Address [address] [place] [address] Care Team Providers Care Load Manager Name Role Phone AmaralMarielos roque KAYE [...] Immunizations Name Administration Dates Next Due INFLUENZA(FLUCELVAX)_0.5 mL(6MOS+)TRI(TMQ886) Social History Tobacco Use Types Packs/Day Years [...] Do you speak a language other than Azerbaijani at [facility]? Yes [...] Nonreactive Nonreactive, Equivocal 09/15/2024 4:51 PM EST [facility] Hep B C IgM Nonreactive Nonreactive 09/15/2024 4:51 PM EST [facility] Hepatitis B surface antigen Nonreactive Nonreactive, Equivocal 09/15/2024 4:51 PM EST [facility] Hepatitis C Ab Nonreactive Nonreactive, Equivocal 09/15/2024 4:51 PM EST [facility] Blood Venipuncture / Unknown 09/15/2024 2:53 PM EST 09/15/2024 3:10 PM EST [facility] - 09/15/2024 4:51 PM EST Hepatitis [...] MD LAB BLOOD ORDERABLES Final Re sult [facility] [address] [id number] [phone] from Last 3 Months or Most Recently Relevant to Health Maintenance Insurance [facility] [employer] ACCESS O MAP Advance Directives For more information, please contact: [phone] * Full Code (Latest Code Status on [...] Enriqueta Toy Spouse Healthcare Decision-Maker Care Teams Load Manager Relationship Specialty Start Date End Date AmaralMarielos, CONTENT EDITOR [address] [place] [address] PCP - General Nurse Practitioner 08/18/23
--- OUTSIDE RECORDS SUMMARY | 2025-05-16 11:09 | XMS_ITS | Encounter Summary ---
Author Organization [employer] ([place], [place], [place], [place]) Address [address] [place] [address] Care Team Providers Care Guest Service Manager Name Role Phone Munir Marielos RESTREPO Primary Care Provider Encounter Details Date Type Department Care Team (Late st Contact Info) Description 04/22/2022 Transcribed Document [facility] [place] Family Medicine [address] [place] [address] ProviderHaroldo MD [address] [place] [address] Social History Tobacco Use Types [...] speak a language other than Greek at [facility]? Yes 10/30/2024 Do you want help [...] on filedocumented in this encounter Care Teams Guest Service Manager Relationship Specialty Start Date End Date Marielos Amaral, SOFTWARE RELIABILITY ENGINEER [address] [address] PCP - General Nurse Practitioner 08/18/23 documented as of this encounter
--- OUTSIDE RECORDS SUMMARY | 2025-05-16 11:09 | XMS_ITS | Encounter Summary ---
Author Organization [employer] ([place], [place], [place], [place]) Address [address] [place] [address] Care Team Providers Care Lead Sewage Plant Operator Name Role Phone Munir Marielos RESTREPO Primary Care Provider Encounter Details Date Type Department Care Team (Late st Contact Info) Description 04/22/2022 Transcribed Document [facility] [place] [address] [place] [address] ProviderHaroldo MD [address] [place] [address] Social History Tobacco Use Types [...] speak a language other than Micronesian at [facility]? Yes 10/30/2024 Do you [...] head, neck, ot back pain. Jose M, childrens club attendant. . History of Present Illness The patient [...] - Coronary artery bypass grafts x 4 ([id number]) on 02/10/2017 at 66 Years. Cardiac catheterization. hernia repair. Tonsillectomy. Cholecystectomy; (62661). Appendectomy. left arm surgery. Coronary stents. EGD - Esophagogastroduodenoscopy ([id number]). Comments: 04/12/2020 7:04 Roxana Grover RN with [...] EDT Height Source Stated Height Entry Format [place] Height/Length, LIBYAN (ft) 5 ft Height/Length LIBYAN 9 Inch CLINICALHEIGHT 175.26 cm [place] Body Weight 69.73 kg Weight Source, ED Critical estimated dosing weight Weight Entry Format [place] Weight Micronesian lb 187 lb CLINICALWEIGHT 85 kg Body [...] % LOW Lymph # 0.74 x10(3)/uL LOW [place] % 10.0 % HI [place] # 0.76 K/uL Eos % 0.3 % Eos # 0.02 x10(3)/uL Baso % 0.3 % Baso # 0.02 x10(3)/uL Slide Review No IG# 0.07 x10(3)/uL HI IG% 0.90 % HI . Radiology results: Radiology Results (Last 48 hours) [id number] -- 04/22/2022 09:14 CR Chest 1 Vw [...] both correctly = 0. Open and close eyes/mill work release hand: Obeys both correctly = 0. [...] nephrology. - 04/22/2022 12:27:00 , KAYLIN ARANGO [facility], paged Dr. Arango. 1230: Dr Arango is not customer relations advisor. Call Dr. Umana. - 04/22/2022 12:32:00 , PARAM UMANA MD, phone call, Dong paged.. Plan Condition: Stable. Disposition: Admit Consults: Consult to Physician (Order): Start: 04/22/2022 12:28 EDT, Routine, Consult to: PARAM UMANA MD, For ARF, Physician Advisor Notified by Physician, Group/Instructions: Pt being admitted [...] plan.. Notes: I certify that the physician assistant in nursing performed the services as delegated. This note has been prepared with the use of voice recognition software and may contain sound alike errors and omissions.. documented in this encounter Plan of Treatment Not on file documented as of this encounter Visit Diagnoses Not on filedocumented in this encounter Care Teams Lead Sewage Plant Operator Relationship Specialty Start Date End Date Marielos Amaral, COPY MANAGER [address] [id number] PCP - General Nurse Practitioner 08/18/23 documented as of this encounter
--- OUTSIDE RECORDS SUMMARY | 2025-05-16 11:09 | XMS_ITS | Encounter Summary ---
Author Organization [employer] ([place], [place], [place], [place]) Address [address] [place] [address] Care Team Providers Care Spiral Winder Name Role Phone Marielos Amaral APRN Primary Care Provider Encounter Details Date Type Department Care Team (Late st Contact Info) Description 11/30/2020 Transcribed Document [facility] Cardiology [address] [place], [place] [id number] [place] [address] [place] [address] [address] [place] [address] Social History Tobacco Use Types Packs/Day Years [...] however, no clear reversibility to suggest ischemia. /[id number] John Salguero MD NMF/AQ / NMF / MODL /[id number] documented in this encounter Plan of Treatment Not on file documented as of this encounter Visit Diagnoses Not on filedocumented in this encounter Care Teams Spiral Winder Relationship Specialty Start Date End Date Marielos Amaral APRN [address] [place] [address] PCP - General Nurse Practitioner 08/18/23 documented as of this encounter
--- OUTSIDE RECORDS SUMMARY | 2025-05-16 11:09 | XMS_ITS | Encounter Summary ---
Author Organization [employer] ([place], [place], [place], [place]) Address [address] [place] [address] Care Team Providers Care Box Lining Machine Feeder Name Role Phone Marielos Amaral HOSPITAL MORTICIAN Primary Care Provider Encounter Details Date Type Department Care Team (Late st Contact Info) Description 10/31/2020 Transcribed Document [facility] [place] [address] [place] [address] ProviderHaroldo MD [address] [place], [place] [address] Social History Tobacco Use Types Packs/Day Years Used Date Smoking Tobacco: Never Assessed Sex and Gender Information Value Date Recorded Sex Assigned at Not on file Legal Sex Male 3:45 PM CDT Gender Identity Not on file Sexual Orientation Not on file documented as of this encounter Miscellaneous Notes * Cerner Conversion Note - Historical ProviderMD - 10/31/2020 11:54 PM MONEY MARKET DEALER Patient: ZACKARY ANTOINE Age: 69 years Sex: [...] Cardiac catheterization. hernia repair. Tonsillectomy. Cholecystectomy; (CPT4 [id number]). Appendectomy. left arm surgery. Coronary stents. EGD - Esophagogastroduodenoscopy (SNOMED CT [id number]). Comments: 04/12/2020 7:04 AIMEET - Roxana Brady RN with radio frequency ablation CABG x 4 - Coronary artery bypass grafts x 4 (SNOMED CT [id number])., Reviewed as documented in chart. Family history: [...] EST Height Source Stated Height Entry Format [place] Height/Length, ITALIAN (ft) 5 ft Height/Length ITALIAN 9 Inch CLINICALHEIGHT 175.26 cm [place] Body Weight 69.73 kg Weight Source, ED Critical estimated dosing weight Weight Entry Format [place] Weight Luxembourgish lb 197 lb CLINICALWEIGHT 89.55 kg Body [...] rhythm, No ST changes, no ectopy, normal OH & QRS intervals, EP Interp. Results review: [...] 16.3 % LOW Lymph # 1.55 x10(3)/uL [place] % 9.7 % HI [place] # 0.92 K/uL Eos % 2.2 % [...] 1:58 EST, Discharge to: Home. Prescriptions: Prescription [facility]: bumetanide 1 mg oral tablet (Prescribe): [...] on filedocumented in this encounter Care Teams Box Lining Machine Feeder Relationship Specialty Start Date End Date Marielos Amaral APRN [address] [address] PCP - General Nurse Practitioner 08/18/23 documented as of this encounter
--- OUTSIDE RECORDS SUMMARY | 2025-05-16 11:09 | XMS_ITS | Encounter Summary ---
Author Organization [employer] ([place], [place], [place], [place]) Address [address] [place] [address] Care Team Providers Care Scutcher Tender Name Role Phone Marielos Amaral APRN Primary Care Provider Encounter Details Date Type Department Care Team (Late st Contact Info) Description 02/08/[address] [facility] Radiology [address] [phone] Fidencio Tolliver MD [address] [place] [address] [address] [place] [address] Social History Tobacco Use Types Packs/Day Years [...] risk factors. CODE STATUS: Full code CONSULTS: [facility] cardiology WORKUP / PROCEDURES: CT [...] approximately 50% stenosis of theproximal basilar artery. inspector government property show mild stenosis proximally. IMPRESSION: 1. 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 Anterior circulation intact.3. Mild bilateral MEDICAID ANALYST disease. This study was performed using dose [...] mg, Oral, BID Eliquis: 5 mg, Oral, [id number] Flomax: 0.4 mg, Oral, Daily MiraLax: 17 [...] Results Review Radiology Results (Last 48 hours) [id number] -- 02/07/2019 11:53 MRI Brain WO (02/06/2019 [...] initiated. DC planning discussed with patient and embedded case manager, he shouldn't is looking for possible rehabilitation placement. documented in this encounter Plan of Treatment Not on file documented as of this encounter Visit Diagnoses Not on filedocumented in this encounter Care Teams Scutcher Tender Relationship Specialty Start Date End Date Marielos Amaral, KAYE [address] [place] [address] PCP - General Nurse Practitioner 08/18/23 documented as of this encounter
--- OUTSIDE RECORDS SUMMARY | 2025-05-16 11:09 | XMS_ITS | Encounter Summary ---
Author Organization [employer] ([place], [place], [place], [place]) Address [address] [place] [address] Care Team Providers Care Relocation Director Name Role Phone Munir Marielos RESTREPO Primary Care Provider [phone] Encounter Details Date Type Department Care Team (Late st Contact Info) Description 04/22/2022 Transcribed Document [facility] [place] [address] [place] [address] ProviderHaroldo MD [address] [place] [address] Social History Tobacco Use Types [...] Do you speak a language other than Swedish at [facility]? Yes 10/30/2024 Do [...] TOVA LOPEZ, RAMONA General Information Visit Type, HEATING UNIT INSTALLER : Initial evaluation Patient Orders : Speech Language Pathology Evaluation and Treatment -111 Start: 04/22/22 14:23:00 EDT, Routine, For Speech Language Cognitive Eval and Treat - ASHLEY GALARZA PA Speech Language Pathology Swallow Evaluation and Treatment - Start: 04/22/22 13:17:00 EDT, Routine, For Swallow Eval and Treat -111 ASHLEY GALARZA PA Admission Date : Admission Date/Time: 04/22/22 12:30:00 Medical Chart Reviewed, HEATING UNIT INSTALLER : Yes Personal Devices : Personal Devices [...] collapse 04/22/2022 12:00 Syncope/Near syncope Therapy Diagnosis, HEATING UNIT INSTALLER : Pt presents without overt oropharyngeal patterns. [...] During Current Admission : NPO Intubation Comment, HEATING UNIT INSTALLER : n/a Vital Signs RTF : Vitals [...] 14:25 EDT General Status Patient Received Status, HEATING UNIT INSTALLER : Supine in bed Treatment Start Time, HEATING UNIT INSTALLER : 04/22/2022 14:12 EDT Patient Left Status, HEATING UNIT INSTALLER : Long sitting in bed RN/PCT Informed Comment, HEATING UNIT INSTALLER : [id number] (5 minutes) Treatment End Time, HEATING UNIT INSTALLER : 04/22/2022 14:25 EDT Treatment Time, HEATING UNIT INSTALLER : 13 Minute(s) TOVA LOPEZ SLP - [...] Oral Mechanism for Daily Living : Intact HEATING UNIT INSTALLER Cough : Strong Facial Appearance: : Symmetrical [...] Afib, DM, GERD, SEFERINO, HLD, and HTN. HEATING UNIT INSTALLER consulted for bedside dysphagia evaluation. Today, pt [...] this time. Diet orders have been placed. HEATING UNIT INSTALLER will follow up w/ a definitive neuro [...] - 04/22/2022 14:25 EDT Therapy Indication Assessment HEATING UNIT INSTALLER Indicated : No HEATING UNIT INSTALLER Not Indicated : At prior level of function HEATING UNIT INSTALLER Interdisciplinary Consultation Needs : No HEATING UNIT INSTALLER Rehabilitation Potential : At prior level of function TOVA LOPEZ SLP - 04/22/2022 14:25 EDT Education Barriers To Learning : None evident Individuals Taught : Patient, Spouse Readiness to Learn : Cooperative Readiness to Learn : Explanation Education Comment : n/a TOVA LOPEZ SLP - 04/22/2022 14:25 EDT HEATING UNIT INSTALLER Education Assessment Grid 1 Diet Recommendation : Verbalizes understanding Evaluation Results : Verbalizes understanding TOVA LOPEZ SLP - 04/22/2022 14:[address] [facility] [place] HEATING UNIT INSTALLER Charges Evaluation Swallowing Function : 1 TOVA LOPEZ SLP - 04/22/2022 14:25 EDT Anticipated Discharge Needs, HEATING UNIT INSTALLER Anticipated Discharge to : Home, independently Recommend Continued Therapy at Discharge : No TOVA LOPEZ SLP - 04/22/2022 14:25 EDT Electronically signed by Brittany [facility] Conversion Rn Behavioral Health Cerner at 01/24/2023 10:34 AM CDT documented in this encounter Plan of Treatment Not on file documented as of this encounter Visit Diagnoses Not on filedocumented in this encounter Care Teams Relocation Director Relationship Specialty Start Date End Date Marielos Amaral, KAYE [address] [phone] PCP - General Nurse Practitioner 08/18/23 documented as of this encounter
--- OUTSIDE RECORDS SUMMARY | 2025-05-16 11:09 | XMS_ITS | Encounter Summary ---
Author Organization [employer] ([place], [place], [place], [place]) Address [address] [place] [address] Care Team Providers Care Floor Sweeper Name Role Phone Munir Marielos RESTREPO Primary Care Provider Encounter Details Date Type Department Care Team (Late st Contact Info) Description 04/22/2022 Transcribed Document [facility] [place] [address] [place] [address] ProviderHaroldo MD [address] [place] [address] Social History Tobacco Use Types [...] Do you speak a language other than Filipino at [facility]? Yes 10/30/2024 Do you want [...] head, neck, ot back pain. Jose M, electro tech. Primary Care Provider KATELYN MCKEON MD-[facility] History of Present Illness Mr. Antoine is [...] alert, and oriented, CN I-XII intact, equal graphic editor and arm strength bilaterally without unilateral weakness [...] Diagnostic Results Radiology Results (Last 48 hours) [id number] -- 04/22/2022 12:30 CR Chest 1 Vw [...] # 0.74 x10(3)/uL (Low) 04/22/2022 09:19 EDT [place] % 10.0 % (High) 04/22/2022 09:19 EDT [place] # 0.76 K/uL 04/22/2022 09:19 EDT Eos [...] on filedocumented in this encounter Care Teams Floor Sweeper Relationship Specialty Start Date End Date Marielos Amaral, STRUCTURAL STEEL DETAILER [address] [address] PCP - General Nurse Practitioner 08/18/23 documented as of this encounter
--- OUTSIDE RECORDS SUMMARY | 2025-05-16 11:09 | XMS_ITS | Encounter Summary ---
Author Organization [employer] ([place], [place], [place], [place]) Address [address] [place] [address] Care Team Providers Care Directory Carrier Name Role Phone Marielos Amaral APRN Primary Care Provider [phone] Encounter Details Date Type Department Care Team (Late st Contact Info) Description 02/09/2019 Transcribed Document [facility] [place] [address] [place] [address] ProviderHaroldo MD [address] [place] [address] Social History Tobacco Use Types Packs/Day Years Used Date Smoking Tobacco: Never Assessed Sex and Gender Information Value Date Recorded Sex Assigned at Not on file Legal Sex Male 3:45 PM CDT Gender Identity Not on file Sexual Orientation Not on file documented as of this encounter Miscellaneous Notes * Cerner Conversion Note - Haroldo ProviderMD - 02/09/2019 2:17 PM CDT [facility] [address] [place] [id number] DEION ANTOINE :1950 Visit Time:02/07/2019 Your Visit [...] Team Community Services: Outpatient physical therapy at [facility] phone [phone] Discharge Follow Up Instructions: Follow-Up Appointments Follow Up with YANICK WHEELER When Within 2 to 3 days Where: [address] [place], [place] [id number] [facility] (1) Medications What How Much When [...] these instructions at home: Medicines ??? Take bybh-xow-jbrtkpi and prescription medicines only as told by [...] 09/22/2006 Document Revised: 03/04/2017 Document Reviewed: 12/18/2016 [employer] Interactive Patient Education ?? 2017 [employer] Weakness Weakness is a lack of [...] 09/04/2009 Document Revised: 03/23/2013 Document Reviewed: 07/12/2016 [employer] Interactive Patient Education ?? 2017 [employer]. amiodarone (oral) (A mi [place] john sen) [...] products. Avoid taking an herbal supplement containing Allen's wort. Amiodarone could make you sunburn more [...] may report side effects to FDA at 0-249-YCQ-7709. What other drugs will affect amiodarone? Sometimes [...] can affect amiodarone. This includes prescription and kplx-yej-rzrrobj medicines, vitamins, and herbal products. Not all [...] to ensure that the information provided by [employer]. ('[employer]') is accurate, up-to-date, and complete, but no guarantee is made to that effect. Drug information contained herein may be time sensitive. [employer] information has been compiled for use by healthcare practitioners and consumers in the [place] and therefore [employer] does not warrant that uses outside of the [place] are appropriate, unless specifically indicated otherwise. [employer] drug information does not endorse drugs, diagnose patients or recommend therapy. [employer] drug information is an informational resource designed [...] effective or appropriate for any given patient. [employer] does not assume any responsibility for any aspect of healthcare administered with the aid of information [facility] provides. The information contained herein is not intended to cover all possible uses, directions, precautions, warnings, drug interactions, allergic reactions, or adverse effects. If you have questions about the drugs you are taking, check with your doctor, nurse or pharmacist. Copyright 3096-2748 [employer]. Version: 7.01. Revision Date: 08/11/2018.apixaban (a PIX [...] may report side effects to FDA at 4-356-JAO-5926. What other drugs will affect apixaban? Sometimes it is not safe to use certain medications at the same time. Some drugs can affect your blood levels of other drugs you take, which may increase side effects or make the medications less effective. Many other drugs (including some dxel-kqn-lbhhblz medicines) can increase your risk of bleeding [...] ?? an NSAID (nonsteroidal anti-inflammatory drug) used emt intermediate. This list is not complete and many other drugs may affect apixaban. This includes prescription and jnmk-ors-bdxgcms medicines, vitamins, and herbal products. Not all [...] to ensure that the information provided by [employer] ('[employer]') is accurate, up-to-date, and complete, but no guarantee is made to that effect. Drug information contained herein may be time sensitive. [employer] information has been compiled for use by healthcare practitioners and consumers in the [place] and therefore [employer] does not warrant that uses outside of the [place] are appropriate, unless specifically indicated otherwise. [employer] drug information does not endorse drugs, diagnose patients or recommend therapy. [employer] drug information is an informational resource designed [...] effective or appropriate for any given patient. [employer] does not assume any responsibility for any aspect of healthcare administered with the aid of information [employer] provides. The information contained herein is not intended to cover all possible uses, directions, precautions, warnings, drug interactions, allergic reactions, or adverse effects. If you have questions about the drugs you are taking, check with your doctor, nurse or pharmacist. Copyright 0670-3041 [employer] Version: 3.01. Revision Date: 02/11/2018. Emergency Awareness [...] Assistance with quitting is available by contacting 9-628-UXNONOW. This is a free resource providing counseling, [...] Be sure to sign up for the [facility] patient portal, which gives you 28/04 access to your medical information ??? including these discharge instructions ??? using your computer, smartphone, or tablet. Just go to [employer] to get started. Questions? Call . Test [...] ANC #: 5 K/uL Toxic Granulation: 1+ Lewis Percent Man: 8 % -- Normal range [...] range between ( 0.0 and 7.0 ) Lewis #: 0.99 K/uL -- Normal range between ( 0.16 and 1.00 ) Eos #: 0.12 x10(3)/uL -- Normal range between ( 0.00 and 0.80 ) Lewis %: 8.7 % -- Normal range between [...] ) Urine Bilirubin Dipstick: Negative Urine Specific [place]: 1.016 -- Normal range between ( 1.005 [...] was given the opportunity to ask questions. Patient/Fabrication And Assembly Supervisor Name: Patient/Fabrication And Assembly Supervisor Signature: Relationship to Patient: Clinician/Hospital Fabrication And Assembly Supervisor Signature: Date: Electronically signed by Brittany, [facility] Conversion Assisted Living Nursing Director Cerner at 01/24/2023 10:27 AM CDT documented in this encounter Plan of Treatment Not on file documented as of this encounter Visit Diagnoses Not on filedocumented in this encounter Care Teams Directory Carrier Relationship Specialty Start Date End Date Marielos Amaral, WOOD PRODUCTS MANUFACTURER [address] [phone] PCP - General Nurse Practitioner 08/18/23 documented as of this encounter
--- OUTSIDE RECORDS SUMMARY | 2025-05-16 11:09 | XMS_ITS | Encounter Summary ---
Author Organization [employer] ([place], [place], [place], [place]) Address [address] [place] [address] Care Team Providers Care Traffic Representative Name Role Phone Marielos Amaral KAYE Primary Care Provider Encounter Details Date Type Department Care Team (Late st Contact Info) Description 02/09/2019 Transcribed Document [facility] [place] [address] [place] [address] ProviderHaroldo MD [address] [place] [address] Social History Tobacco Use Types Packs/Day Years [...] Cara Chaudhary, RN - 02/09/2019 4:50 EDT documented in this encounter Plan of Treatment Not on file documented as of this encounter Visit Diagnoses Not on filedocumented in this encounter Care Teams Traffic Representative Relationship Specialty Start Date End Date Rosette Amarale, CABLE MECHANIC [address] [place] [address] PCP - General Nurse Practitioner 08/18/23 documented as of this encounter
--- OUTSIDE RECORDS SUMMARY | 2025-05-16 11:09 | XMS_ITS | Clinical Summary ---
Author Organization [facility] Address [address] [place] [address] Care Team Providers Care Tie In Machine Operator Name Role Phone Marielos Amaral KAYE Primary Care Provider [phone] Allergies No known active allergies Medications hydrALAZINE (Apresoline) 50 MG tabletIndications :Essential hypertension Take 1.5 tablets (75 mg total) by mouth 3 (three) times a day. 135 tablet 3 2 Active ergocalciferol (Drisdol) 1.25 MG (33741 UT) capsuleIndication s:Vitamin D deficiency 50,000 units [...] (2 of 2 - PCV) 02/16/2018 02/16/2017 [id number] Vaccine ( season) 2024 08/13/2022, 02/02/2021, 01/02/2021 [...] patient's age to complete this topic Insurance [facility] MEDICARE Care Teams Tie In Machine Operator Relationship Specialty Start Date End Date Marielos Amaral, KAYE [address] [place] [address] PCP - General 03/26/22
--- OUTSIDE RECORDS SUMMARY | 2025-05-16 11:09 | XMS_ITS | Encounter Summary ---
Author Organization [employer] ([place], [place], [place], [place]) Address [address] [place] [address] Care Team Providers Care Machine Set Up Operator Paper Goods Name Role Phone Munir Marielos RESTREPO Primary Care Provider [phone] Encounter Details Date Type Department Care Team (Late st Contact Info) Description 04/22/2022 Transcribed Document [facility] [place] [address] [place] [address] ProviderHaroldo MD [address] [place], [place] [...] Do you speak a language other than [place] Islander at [facility]? Yes 10/30/2024 Do you want help with [...] 04/22/2022 10:02 EDT Electronically signed by Brittany [facility] Conversion Shell Reprint Operator Cerner at 01/24/2023 10:30 AM CDT documented in this encounter Plan of Treatment Not on file documented as of this encounter Visit Diagnoses Not on filedocumented in this encounter Care Teams Machine Set Up Operator Paper Goods Relationship Specialty Start Date End Date Marielos Amaral, KAYE [address] [place] [address] PCP - General Nurse Practitioner 08/18/23 documented as of this encounter
--- OUTSIDE RECORDS SUMMARY | 2025-05-16 11:09 | XMS_ITS | Encounter Summary ---
Author Organization [employer] ([place], [place], [place], [place]) Address [address] [place] [address] Care Team Providers Care Sfdc Consultant Name Role Phone Marielos Amaral KAYE Primary Care Provider Encounter Details Date Type Department Care Team (Late st Contact Info) Description 02/08/2019 Transcribed Document [facility] [place] Family Medicine [address] [place] [address] ProviderHaroldo MD [address] [place] [address] Social History Tobacco Use Types Packs/Day Years [...] On: 02/08/2019 9:43 EDT by DIONE REY, Fruit Grading Supervisor Primary Insurance Authorization Authorization and Policy Numbers : Insurance 1 Health Plan: [employer] GOLD PLUS HMO Policy Number: [id number] Authorization Number: PENDING IP Insurance Primary Name : Hum[employer] Choice Authorization Status-Primary : Awaiting callback Authorized Service Begin Date-Primary : 02/05/2019 EDT Authorization Comments-Primary : inpt auth is pending per availity trans id# [id number] Historical Authorization Comments-Primary : Comment 1: setup case for IP on availity. faxed clinicals via cerner. (GEGE JUÁREZ RN 02/07/2019 11:56) Comment 2: setup on availity obs approved. (GEGE JUÁREZ RN 02/06/2019 08:52) DIONE REY, Fruit Grading Supervisor - 02/08/2019 9:43 EDT Electronically signed by Brittany [facility] Conversion Air Quality Consultant Cerner at 01/24/2023 10:31 AM CDT documented in this encounter Plan of Treatment Not on file documented as of this encounter Visit Diagnoses Not on filedocumented in this encounter Care Teams Sfdc Consultant Relationship Specialty Start Date End Date Marielos Amaral, DIRECTOR SOCIAL SERVICE [address] [id number] PCP - General Nurse Practitioner 08/18/23 documented as of this encounter
--- OUTSIDE RECORDS SUMMARY | 2025-05-16 11:09 | XMS_ITS | Encounter Summary ---
Author Organization [employer] ([place], [place], [place], [place]) Address [address] [place] [address] Care Team Providers Care Intelligence Officer Basic Name Role Phone Munir Marielos RESTREPO Primary Care Provider Encounter Details Date Type Department Care Team (Late st Contact Info) Description 04/22/[address] [facility] [place] Family Medicine [address] [place] [address] ProviderHaroldo MD [address] [place] [address] Social History Tobacco Use Types [...] Do you speak a language other than Paraguayan at [facility]? Yes [...] 04/22/2022 17:19 EDT Electronically signed by Brittany [facility] Conversion Senior Java Software Developer Cerner at 01/24/2023 10:28 AM CDT documented in this encounter Plan of Treatment Not on file documented as of this encounter Visit Diagnoses Not on filedocumented in this encounter Care Teams Intelligence Officer Basic Relationship Specialty Start Date End Date Marielos Amaral, KAYE [address] [phone] PCP - General Nurse Practitioner 08/18/23 documented as of this encounter
--- OUTSIDE RECORDS SUMMARY | 2025-05-16 11:09 | XMS_ITS | Encounter Summary ---
Author Organization [employer] ([place], [place], [place]) Address [address] [place] [address] Care Team Providers Care Perinatal Technician Name Role Phone Marielos Amaral KAYE Primary Care Provider Encounter Details Date Type Department Care Team (Late st Contact Info) Description 02/09/2019 Transcribed Document [facility] [place] [facility] [place] [address] ProviderHaroldo MD [address] [place] [address] Social History Tobacco Use Types Packs/Day Years [...] On: 02/09/2019 13:20 EDT by GERALDINE BROWN, RN-Snack Stewardess Final Discharge Planning Discharge Arrangements : Patient Post-Acute Information Patient Name: ZACKARY ANTOINE Gender: Male : [birth year] Age: 68 Years No Post-Acute Placement(s) Listed No Post-Acute Service(s) Listed No Curaspan Referral(s) Listed GERALDINE BROWN, RN-Snack Stewardess - 02/09/2019 13:20 EDT Accts Placement Outside [facility] Account #1 Service : Outpatient physical therapy Organization : [facility] Business Address : [address] [address] Comment (Comment: wanted them to call her to arrange her first appointment [GERALDINE BROWN, RN-Snack Stewardess - 02/09/2019 13:20 EDT] ) GERALDINE BROWN, RN-Snack Stewardess - 02/09/2019 13:20 EDT Transportation Needs : Car Discharge Transportation Arrangement Cmt : Follow Up Appointment Scheduled : Yes Is Patient High/Moderate Readmission Risk? : No Patient/Family Notified of Plan : Yes Patient/Family Notified : patient and his Discharge To Care Management : Home/Residential/Shelter or Self Care -01 GERALDINE BROWN, RN-Snack Stewardess - 02/09/2019 13:20 EDT Final Narrative Note Final Narrative Note : Pt's requests outpatient physical therapy at [facility] in [place] (phone [phone] / fax [phone]). She wants them to contact her to schedule pt's first appointment. Attented to call [facility] but no answer. Orders faxed. GERALDINE BROWN, RN-Snack Stewardess - 02/09/2019 13:20 EDT documented in this encounter Plan of Treatment Not on file documented as of this encounter Visit Diagnoses Not on filedocumented in this encounter Care Teams Perinatal Technician Relationship Specialty Start Date End Date Marielos Amaral, KAYE [address] [address] PCP - General Nurse Practitioner 08/18/23 documented as of this encounter
--- OUTSIDE RECORDS SUMMARY | 2025-05-16 11:09 | XMS_ITS | Encounter Summary ---
Author Organization [employer] ([place], [place], [place], [place]) Address [address] [place] [address] Care Team Providers Care Geotechnical Intern Name Role Phone Marielos Amaral APRN Primary Care Provider Encounter Details Date Type Department Care Team (Late st Contact Info) Description 11/01/2020 Transcribed Document [facility] [place] Family Medicine [address] [place] [address] ProviderHaroldo MD [address] [place], [place] [address] Social History Tobacco Use Types Packs/Day Years Used Date Smoking Tobacco: Never Assessed Sex and Gender Information Value Date Recorded Sex Assigned at Not on file Legal Sex Male 3:45 PM CDT Gender Identity Not on file Sexual Orientation Not on file documented as of this encounter Miscellaneous Notes * Cerjude Conversion Note - Historical ProviderMD - 11/01/2020 1:57 AM REAL ESTATE ADMINISTRATOR Electronically signed by [facility] Conversion Gifted Teacher Cerner at 01/24/2023 10:19 AM CDT documented in this encounter Plan of Treatment Not on file documented as of this encounter Visit Diagnoses Not on filedocumented in this encounter Care Teams Geotechnical Intern Relationship Specialty Start Date End Date Marielos Amaral APRN [address] [address] PCP - General Nurse Practitioner 08/18/23 documented as of this encounter
--- OUTSIDE RECORDS SUMMARY | 2025-05-16 11:09 | XMS_ITS | Encounter Summary ---
Author Organization [employer] ([place], [place], [place], [place]) Address [address] [place] [address] Care Team Providers Care Toggle Press Folder And Feeder Name Role Phone Marielos Amaral KAYE Primary Care Provider Encounter Details Date Type Department Care Team (Late st Contact Info) Description 12/12/2020 Transcribed Document [facility] [place] Family Medicine [address] [place] [address] ProviderHaroldo MD [address] [place] [address] Social History Tobacco Use Types Packs/Day Years Used Date Smoking Tobacco: Never Assessed Sex and Gender Information Value Date Recorded Sex Assigned at Not on file Legal Sex Male 3:45 PM CDT Gender Identity Not on file Sexual Orientation Not on file documented as of this encounter Miscellaneous Notes * Cerner Conversion Note - Haroldo ProviderMD - 12/12/2020 4:43 PM BADGER DISTILLER OPERATOR [facility] [address] [place] [id number] ZACKARY ANTOINE :1950 Visit Time:12/12/2020 Your Visit Summary Your Care Team Admitting Physician - MARIAM CHATMAN MD-CAR Attending Physician - MARIAM CHATMAN MD-CAR Primary Care Physician - KATELNY MCKEON MD-[facility] Referring Physician - FALLUJI, NEZAR M, MD-CAR Your Diagnosis Atherosclerotic heart disease of [place] coronary artery without angina pectoris, Atherosclerotic heart disease of [place] coronary artery without angina pectoris Discharge Vitals [...] EDT Comments Appointment has been made Where: [address] [place] [address] [place] [address]- Business (1) Medications What How Much When [...] 10/25/2011 Document Revised: 12/14/2012 Document Reviewed: 10/25/2011 [facility] Patient Information ??2014 [employer]. Coronary Angiogram A coronary angiogram is an [...] including vitamins, herbs, eye drops, creams, and irvi-owz-fbnaknc medicines. ??? Any problems you or family [...] Reviewed: 07/04/2017 Elsevier Patient Education ?? 2020 [employer]. Heart-Healthy Eating Plan Heart-healthy meal planning includes: [...] Fats and oils Meat fat, or shortening. Aurora butter, hydrogenated oils, palm oil, coconut oil, [...] 03/23/2013 Document Revised: 11/26/2018 Document Reviewed: 10/30/2018 [employer] Patient Education ?? 2020 [employer]. Moderate Conscious Sedation, Adult, Care After These [...] you are awake and alert. ??? Take uuws-ifl-ipivwkk and prescription medicines only as told by [...] 07/13/2014 Document Revised: 09/04/2018 Document Reviewed: 01/11/2017 [employer] Patient Education ?? 2020 [employer]. FAQ ??? Patient COVID-19 testing Why do [...] through the local health department and the [place] Department for Public Health. Those organizations are [...] and need to call 911, notify the batch plant operator that you have, or think you [...] clean your hands with an alcohol-based hand cleaning handyman that contains at least 60% alcohol. Clean your hands often. ??? Wash hands: Wash your hands often with soap and water for at least 20 seconds when visibly dirty. This is especially important after blowing your nose, coughing or sneezing, and going to the bathroom, and before eating or preparing food. ??? Hand cleaning handyman: Use an alcohol-based hand cleaning handyman with at least 60% alcohol, covering all [...] and water or put them in the garment worker. Clean all high-touch surfaces every day. Clean [...] or body fluids on them. ??? Household community living specialist and disinfectants: Clean the area or item [...] list of disinfectants can be found here: https://www.epa.gov/pesticide-registration/coxe-o-gyyopsntgwihr-kyz-etpnlpj-sx rs-cov-2 Emergency Awareness and Preventative Care STROKE [...] Assistance with quitting is available by contacting 3-307-SAHQ-NOW. This is a free resource providing counseling, [...] was given the opportunity to ask questions. Patient/Sewing Teacher Name: Patient/Sewing Teacher Signature: Relationship to Patient: Clinician/Hospital Sewing Teacher Signature: Date: Electronically signed by Brittany, [facility] Conversion Supervisor Fireworks Assembly Cerner at 01/24/2023 10:30 AM CDT documented in this encounter Plan of Treatment Not on file documented as of this encounter Visit Diagnoses Not on filedocumented in this encounter Care Teams Toggle Press Folder And Feeder Relationship Specialty Start Date End Date Marielos Amaral, MANPOWER DEVELOPMENT SPECIALIST [address] [place] [address] PCP - General Nurse Practitioner 08/18/23 documented as of this encounter
--- OUTSIDE RECORDS SUMMARY | 2025-05-16 11:09 | XMS_ITS | Encounter Summary ---
Author Organization [employer] ([place], [place], [place], [place]) Address [address] [place] [address] Care Team Providers Care Hydrogen Plant Operator Name Role Phone Marielos Amaral KAYE Primary Care Provider Encounter Details Date Type Department Care Team (Late st Contact Info) Description 11/01/2020 Transcribed Document [facility] [place] Family Medicine [facility] [address] ProviderHaroldo MD [address] [place] [address] Social History Tobacco Use Types Packs/Day Years Used Date Smoking Tobacco: Never Assessed Sex and Gender Information Value Date Recorded Sex Assigned at Not on file Legal Sex Male 3:45 PM CDT Gender Identity Not on file Sexual Orientation Not on file documented as of this encounter Miscellaneous Notes * Cerner Conversion Note - Haroldo ProviderMD - 11/01/2020 2:07 AM HEALTH AND SAFETY DIRECTOR ED Discharge Entered On: 11/01/2020 2:07 EST [...] - 11/01/2020 2:07 EST Electronically signed by [facility], [facility] Conversion Photography Intern Cerner at 01/24/2023 10:25 AM CDT documented in this encounter Plan of Treatment Not on file documented as of this encounter Visit Diagnoses Not on filedocumented in this encounter Care Teams Hydrogen Plant Operator Relationship Specialty Start Date End Date Marielos Amaral, UPHOLSTERY PARTS SORTER [address] [place] [address] PCP - General Nurse Practitioner 08/18/23 documented as of this encounter
--- OUTSIDE RECORDS SUMMARY | 2025-05-16 11:09 | XMS_ITS | Encounter Summary ---
Author Organization [employer] ([place], [place], [place], [place]) Address [address] [place] [address] Care Team Providers Care Explosive Operator Name Role Phone Marielos Amaral KAYE Primary Care Provider Encounter Details Date Type Department Care Team (Late st Contact Info) Description 02/09/2019 Transcribed Document [facility] [place] Family Medicine [address] [place] [address] ProviderHaroldo MD [address] [place] [address] Social History Tobacco Use Types Packs/Day Years [...] Chaudhary Rn-Flex Team - 02/09/2019 14:14 EDT Electronically signed by Renetta Soto Conversion Electronics Engineering Technician Cerner at 01/24/2023 10:45 AM CDT documented in this encounter Plan of Treatment Not on file documented as of this encounter Visit Diagnoses Not on filedocumented in this encounter Care Teams Explosive Operator Relationship Specialty Start Date End Date Marielos Amaral, KAYE [address] [place] [address] PCP - General Nurse Practitioner 08/18/23 documented as of this encounter
--- OUTSIDE RECORDS SUMMARY | 2025-05-16 11:10 | XMS_ITS | Encounter Summary ---
Author Organization [employer] ([place], [place], [place], [place]) Address [address] [place] [address] Care Team Providers Care Body Shop Estimator Name Role Phone Munir Marielos RESTREPO Primary Care Provider [phone] Encounter Details Date Type Department Care Team (Late st Contact Info) Description 04/27/2022 Transcribed Document [facility] [place] Family Medicine [address] [place] [address] ProviderHaroldo MD [address] [place] [address] Social History Tobacco Use Types [...] Do you speak a language other than Lebanese at [facility]? Yes 10/30/2024 [...] FANY FREEMAN, PT - 04/27/2022 8:39 EDT Automotive Fleet Supervisor Goals Mobility/Bed Mobility LTG PT Grid [...] 8:39 EDT Electronically signed by Brittany [facility] Conversion Technical Translator Cerner at 01/24/2023 10:33 AM CDT documented in this encounter Plan of Treatment Not on file documented as of this encounter Visit Diagnoses Not on filedocumented in this encounter Care Teams Body Shop Estimator Relationship Specialty Start Date End Date Marielos Amaral, PHARMACY PICKING TECHNICIAN [address] [id number] PCP - General Nurse Practitioner 08/18/23 documented as of this encounter
--- OUTSIDE RECORDS SUMMARY | 2025-05-16 11:10 | XMS_ITS | Encounter Summary ---
Author Organization [employer] ([place], [place], [place], [place]) Address [address] [place] [address] Care Team Providers Care Coloring Checker Name Role Phone Munir Marielos RESTREPO Primary Care Provider Encounter Details Date Type Department Care Team (Late st Contact Info) Description 04/29/2022 Transcribed Document [facility] [place] Family Medicine [address] [place] [address] ProviderHaroldo MD [address] [place] [address] Social History Tobacco Use Types [...] Do you speak a language other than Jordanian at [facility]? Yes 10/30/2024 Do you want help with [...] Health Plan: [employer] MEDICARE REPL Policy Number: [id number] Authorization Number: Insurance Primary Name : [employer]M MEDICARE REPL Policy Number: [id number] Authorization Status-Primary : Awaiting callback Auth/Referral Contact Name-Primary : [place] Reference Number-Primary : [id number] Authorized Service Begin Date-Primary : 04/22/2022 EDT Authorization Comments-Primary : Remains pending per Availity. Historical Authorization Comments-Primary : Comment 1: Discharge summary as well as continued stay clinical 04/24 - discharge faxed. (Kari Chaudhary, Pulmonology Technician 04/29/2022 14:17) Comment 2: Request for inpt auth submitted via [employer]RaySat Ref# [id number] received;clinicals attached. (Radha Dillon RN 04/23/2022 18:56) Vanessa Pimentel SUPV-QUALITY - 04/29/2022 14:55 EDT documented in this encounter Plan of Treatment Not on file documented as of this encounter Visit Diagnoses Not on filedocumented in this encounter Care Teams Coloring Checker Relationship Specialty Start Date End Date Marielos Amaral, HEALTH OCCUPATIONS TEACHER [address] [address] PCP - General Nurse Practitioner 08/18/23 documented as of this encounter
--- OUTSIDE RECORDS SUMMARY | 2025-05-16 11:10 | XMS_ITS | Encounter Summary ---
Author Organization [employer] ([place], [place], [place], [place]) Address [address] [place] [address] Care Team Providers Care Supervisor Major Appliance Assembly Name Role Phone Munir Brii RESTREPO Primary Care Provider Encounter Details Date Type Department Care Team (Late st Contact Info) Description 04/26/[address] [facility] [place] Family Medicine [address] [place] [address] ProviderHaroldo MD [address] [place] [address] Social History Tobacco Use Types [...] Do you speak a language other than American at [facility]? Yes 10/30/2024 Do you want [...] Encounter/Past 24 Hours) Creatinine Level 2.50 mg/dL AR 04/26/2022 07:49 eGFR 31 mL/min/1.73m2 LOW 04/26/2022 07:49 Bun/Creatinine 14.8 04/26/2022 07:49 eGFR NonAfrican 26 mL/min/1.73m2 LOW 04/26/2022 07:49 Sodium Level 134 mmol/L LOW 04/26/2022 07:49 Potassium Level 4.9 mmol/L 04/26/2022 07:49 Chloride Level 106 mmol/L 04/26/2022 07:49 Carbon Dioxide Level 22 mmol/L 04/26/2022 07:49 Anion Gap 11 04/26/2022 07:49 Blood Urea Nitrogen 37 mg/dL AR 04/26/2022 07:49 Glucose Level 180 mg/dL AR 04/26/2022 07:49 Calcium Level 8.9 mg/dL 04/26/2022 [...] with right sided weakness who presented to [facility] on 04/22 for evaluation of weakness. In [...] on filedocumented in this encounter Care Teams Supervisor Major Appliance Assembly Relationship Specialty Start Date End Date Brii Amaral, POWDER BLENDER AND POURER [address] [place] [address] PCP - General Nurse Practitioner 08/18/23 documented as of this encounter
--- OUTSIDE RECORDS SUMMARY | 2025-05-16 11:10 | XMS_ITS | Encounter Summary ---
Author Organization [employer] ([place], [place], [place], [place]) Address [address] [place] [address] Care Team Providers Care Pipe Organ Builder Name Role Phone Munir Brii RESTREPO Primary Care Provider Encounter Details Date Type Department Care Team (Late st Contact Info) Description 04/26/2022 Transcribed Document [facility] [place] [address] [place] [address] ProviderHaroldo MD [address] [place] [address] Social History Tobacco Use Types [...] language other than Citizen Of [place] at [facility]? Yes 10/30/2024 [...] on filedocumented in this encounter Care Teams Pipe Organ Builder Relationship Specialty Start Date End Date Brii Amaral APRN [address] [phone] PCP - General Nurse Practitioner 08/18/23 documented as of this encounter
--- OUTSIDE RECORDS SUMMARY | 2025-05-16 11:10 | XMS_ITS | Encounter Summary ---
Author Organization [employer] ([place], [place], [place], [place]) Address [address] [place] [address] Care Team Providers Care Thermal Molder Name Role Phone Munir Marielos RESTREPO Primary Care Provider [phone] Encounter Details Date Type Department Care Team (Late st Contact Info) Description 04/26/2022 Transcribed Document [facility] [place] [address] [place] [address] ProviderHaroldo MD [address] [place] [address] Social History Tobacco Use Types [...] language other than Citizen Of [place] at [facility]? Yes 10/30/2024 Do you [...] On: 04/26/2022 14:23 EDT by LEXX LOWRY, RN-Farm Equipment Maintenance SupervisorChairman And Ceo Progress Note Discharge Arrangements : Patient Post-Acute Information Patient Name: ZACKARY ANTOINE Gender: Male : [birth year] Age: 71 Years No Post-Acute Placement(s) Listed No Post-Acute Service(s) Listed No Curaspan Referral(s) Listed Discharge Options Discussed with Patient : DME, Home Health Barriers to Discharge Identified : None identified Barriers to Discharge Unresolved : All resolved Patient Discharge Goal : Home [facility] Quality Web Info Shared w Pt/Fam : No Does the Patient have a Floor to SNF Benefit? : No Is the Patient Meeting Medical Necessity : Yes Physician Agreeable to Move Forward with D/C Plan? : No Did you Attend Multidisciplinary Rounds? : Yes LEXX LOWRY RN-Farm Equipment Maintenance Supervisor - 04/26/2022 14:23 EDT Narrative Progress Note Narrative Progress Note : Met with pt and . Do not have home health preference. Per [facility], do not serve area at this time and will assist in establishing a home health for [facility]. Deny need for equipment. States glucometer is old . Order for new one sent to pharmacy per Dr. Gross. nursing educator to see prior to dc. 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 CM attempted to meet with pt this evening for CM eval, but pt sleeping soundly. CM will need to f/u with pt for full CM eval and send referrals as appropriate, as pt will likely benefit from HH vs inpt rehab. TYSHAWN RIGGINS, RN-Farm Equipment Maintenance Supervisor ED - 04/23/22 23:38:53 LEXX LOWRY, RN-Farm Equipment Maintenance Supervisor - 04/26/2022 14:23 EDT documented in this encounter Plan of Treatment Not on file documented as of this encounter Visit Diagnoses Not on filedocumented in this encounter Care Teams Thermal Molder Relationship Specialty Start Date End Date Marielos Amaral APRN [address] [address] PCP - General Nurse Practitioner 08/18/23 documented as of this encounter
--- OUTSIDE RECORDS SUMMARY | 2025-05-16 11:10 | XMS_ITS | Encounter Summary ---
Author Organization [employer] ([place], [place], [place], [place]) Address [address] [place] [address] Care Team Providers Care Homicide Squad Sergeant Name Role Phone Munir Marielos RESTREPO Primary Care Provider Encounter Details Date Type Department Care Team (Late st Contact Info) Description 05/01/2022 Transcribed Document [facility] [place] [address] [place] [address] ProviderHaroldo MD [address] [place] [address] Social History Tobacco Use Types [...] Do you speak a language other than Luxembourger at [facility]? Yes 10/30/2024 Do you want [...] On: 05/01/2022 8:48 EDT by Kari Chaudhary, Analysis Consultant Primary Insurance Authorization Authorization and Policy Numbers : Insurance 1 Health Plan: [employer] MEDICARE REPL Policy Number: [id number] Authorization Number: Insurance Primary Name : [employer] MEDICARE REPL Policy Number: [id number] Authorization Status-Primary : Drg approved Auth/Referral Contact Name-Primary : DC Reference Number-Primary : [id number] Authorization Number-Primary : [id number] Number of Days Authorized-Primary : 3 Day(s) Authorized Service Begin Date-Primary : 04/22/2022 EDT Authorized Service End Date-Primary : 04/25/2022 EDT Authorization Comments-Primary : Authorized per fax 04/30/22 @ 1008. Approved DRG admission 04/22 - 04/25. Historical Authorization Comments-Primary : Comment 1: Remains pending per Availity. (Vanessa Pimentel, SUPV-QUALITY 04/29/2022 14:55) Comment 2: Discharge summary as well as continued stay clinical 04/24 - discharge faxed. (Kari Chaudhary, Analysis Consultant 04/29/2022 14:17) Comment 3: Request for inpt auth submitted via [employer] Ref# [id number] received;clinicals attached. (Radha Dillon RN 04/23/2022 18:56) Kari Chaudhary, Analysis Consultant - 05/01/2022 8:48 EDT documented in this encounter Plan of Treatment Not on file documented as of this encounter Visit Diagnoses Not on filedocumented in this encounter Care Teams Homicide Squad Sergeant Relationship Specialty Start Date End Date Marielos Amaral, DEPUTY COUNTY COUNSEL [address] [id number] PCP - General Nurse Practitioner 08/18/23 documented as of this encounter
--- OUTSIDE RECORDS SUMMARY | 2025-05-16 11:10 | XMS_ITS | Encounter Summary ---
Author Organization [employer] ([place], [place], [place], [place]) Address [address] [place] [address] Care Team Providers Care Employee Relations Specialist Name Role Phone Munir Marielos RESTREPO Primary Care Provider [phone] Encounter Details Date Type Department Care Team (Late st Contact Info) Description 04/26/2022 Transcribed Document [facility] [place] [address] [place] [address] ProviderHaroldo MD [address] [place] [address] Social History Tobacco Use Types [...] speak a language other than Surinamese at [facility]? Yes [...] Other (See Comment) Eliquis: 2.5 mg, Oral, [id number] Flomax: 0.4 mg, Oral, Daily Metoprolol Succinate ER: 50 mg, Oral, Daily Normal Saline 1,000 mL: 100 mL/Hr, IntraVENous Rocephin: 1 Gram, 100 mL/Hr, IV Piggyback, [id number] Tylenol: 650 mg, Oral, Q4H, PRN: Pain [...] mg tab 2.5 mg 1 Tab, Oral, [id number] atorvastatin 40 mg tab 40 mg 1 Tab, Oral, At Bedtime cefTRIAXone 1 Gram, IV Piggyback, C32LUii cholecalciferol 1,000 unit tab 1,000 Units 1 [...] list: Medical Atrial fibrillation / SNOMED CT 38321422 / Confirmed CAD - Coronary artery disease / SNOMED CT 9787690520 / Confirmed Cardiomyopathy / SNOMED CT 647278753 / Confirmed Acute cerebrovascular accident (CVA) / SNOMED CT 653259547 / Confirmed History of obstructive sleep apnea / IMO [id number] / Confirmed HLD - Hyperlipidemia / SNOMED CT 732245214 / Confirmed HTN - Hypertension / SNOMED CT 9651292086 / Confirmed Type 2 diabetes mellitus / SNOMED CT 267215090 / Confirmed, Active Problems (20) Acute cerebrovascular [...] Gastrointestinal: Soft, Non-tender, Non-distended. Integumentary: Warm, Dry, Medon. Neurologic: Alert, Oriented, No focal deficits. Psychiatric: [...] renal diet. - No emergent need of SUBWAY OPERATOR. Will follow. Can be discharged today. Follow up with NAL in 2 weeks @ [facility] with renal function panel and UA. Electronically signed by Brittany, [facility] Conversion Comber Setter Cerner at 01/24/2023 10:39 AM CDT documented in this encounter Plan of Treatment Not on file documented as of this encounter Visit Diagnoses Not on filedocumented in this encounter Care Teams Employee Relations Specialist Relationship Specialty Start Date End Date Amaral Marielos, SURG RN [address] [address] PCP - General Nurse Practitioner 08/18/23 documented as of this encounter
--- OUTSIDE RECORDS SUMMARY | 2025-05-16 11:10 | XMS_ITS | Encounter Summary ---
Author Organization [employer] ([place], [place], [place], [place]) Address [address] [place] [address] Care Team Providers Care Classifications Officer Cc/Cm Name Role Phone Munir Brii RESTREPO Primary Care Provider Encounter Details Date Type Department Care Team (Late st Contact Info) Description 04/26/2022 Transcribed Document [facility] [place] Family Medicine [address] [place] [address] ProviderHaroldo MD [address] [place] [address] Social History Tobacco Use Types [...] Do you speak a language other than Ugandan at [facility]? Yes 10/30/2024 Do you want help with [...] on filedocumented in this encounter Care Teams Classifications Officer Cc/Cm Relationship Specialty Start Date End Date Brii Amaral APRN [address] [address] PCP - General Nurse Practitioner 08/18/23 documented as of this encounter
--- OUTSIDE RECORDS SUMMARY | 2025-05-16 11:10 | XMS_ITS | Encounter Summary ---
Author Organization [employer] ([place], [place], [place], [place]) Address [address] [place] [address] Care Team Providers Care Pre Press Manager Name Role Phone Marielos Amaral KAYE Primary Care Provider [phone] Encounter Details Date Type Department Care Team (Late st Contact Info) Description 10/31/2020 Transcribed Document [facility] [place] Family Medicine [address] [place] [address] ProviderHaroldo MD [address] [place], [place] [address] Social History Tobacco Use Types Packs/Day Years Used Date Smoking Tobacco: Never Assessed Sex and Gender Information Value Date Recorded Sex Assigned at Not on file Legal Sex Male 3:45 PM CDT Gender Identity Not on file Sexual Orientation Not on file documented as of this encounter Miscellaneous Notes * Cerner Conversion Note - Historical ProviderMD - 10/31/2020 11:42 PM [facility] ED Triage Entered On: 10/31/2020 23:49 EST [...] : 3 - Urgent Tracking Group : [facility] ED Lina John RN - 10/31/2020 23:44 EST Mode of Arrival : Ambulatory Transported to ED by : Private vehicle To Room Via : Ambulate Accompanied By : Unaccompanied ED Vital Signs : Document Height & Weight : Document ED Allergies : Document ED Reason for Visit : Document Tetanus Immunization : Greater than 5 years Boom Conveyor Operator Needed : No Lina John RN - [...] Problems(Active) Acute cerebrovascular accident (CVA) (SNOMED CT :705119120 ) Name of Problem: Acute cerebrovascular accident (CVA) ; Recorder: Roxana Brady RN; Confirmation: Confirmed ; Classification: Medical ; Code: 199761271 ; Contributor System: PowerChart ; Last Updated: 04/12/2020 7:03 EDT ; Life Cycle Date: 04/12/2020 ; Life Cycle Status: Active ; Vocabulary: SNOMED CT Angina (SNOMED CT :291112414 ) Name of Problem: Angina ; Recorder: RAVEN REILLY RN; Confirmation: Confirmed ; Classification: Patient Stated ; Code: 796165990 ; Contributor System: PowerChart ; Last Updated: 07/20/2014 9:33 EDT ; Life Cycle Date: 07/20/2014 ; Life Cycle Status: Active ; Vocabulary: SNOMED CT Coronary artery disease (SNOMED CT :7308310635 ) Name of Problem: Coronary artery disease ; Recorder: RAVEN REILLY RN; Confirmation: Confirmed ; Classification: Patient Stated ; Code: 1178367031 ; Contributor System: PowerChart ; Last Updated: 07/20/2014 9:33 EDT ; Life Cycle Date: 07/20/2014 ; Life Cycle Status: Active ; Vocabulary: SNOMED CT Diabetes mellitus type II (SNOMED CT :97795217 ) Name of Problem: Diabetes mellitus type II ; Recorder: RAVEN REILLY RN; Confirmation: Confirmed ; Classification: Patient Stated ; Code: 34248953 ; Contributor System: PowerChart ; Last Updated: 07/20/2014 9:35 EDT ; Life Cycle Date: 07/20/2014 ; Life Cycle Status: Active ; Vocabulary: SNOMED CT Enlarged prostate (SNOMED CT :602204655 ) Name of Problem: Enlarged prostate ; Recorder: RAVEN REILLY RN; Confirmation: Confirmed ; Classification: Patient Stated ; Code: 998169656 ; Contributor System: PowerChart ; Last Updated: 07/20/2014 9:34 EDT ; Life Cycle Date: 07/20/2014 ; Life Cycle Status: Active ; Vocabulary: SNOMED CT GERD - Gastro-esophageal reflux disease (SNOMED CT :8927752233 ) Name of Problem: GERD - Gastro-esophageal reflux disease ; Recorder: RAVEN REILLY RN; Confirmation: Confirmed ; Classification: Patient Stated ; Code: 3618153393 ; Contributor System: PowerChart ; Last Updated: 07/20/2014 9:34 EDT ; Life Cycle Date: 07/20/2014 ; Life Cycle Status: Active ; Vocabulary: SNOMED CT Heart failure (SNOMED CT :979575630 ) Name of Problem: Heart failure ; Recorder: RAVEN REILLY RN; Confirmation: Confirmed ; Classification: Patient Stated ; Code: 650545188 ; Contributor System: 3dplusmeChart ; Last Updated: 07/20/2014 9:33 EDT ; Life Cycle Date: 07/20/2014 ; Life Cycle Status: Active ; Vocabulary: SNOMED CT Heart murmur (SNOMED CT :846435381 ) Name of Problem: Heart murmur ; Recorder: RAVEN REILLY RN; Confirmation: Confirmed ; Classification: Patient Stated ; Code: 365352428 ; Contributor System: PowerChart ; Last Updated: 07/20/2014 9:33 EDT ; Life Cycle Date: 07/20/2014 ; Life Cycle Status: Active ; Vocabulary: SNOMED CT History of obstructive sleep apnea (IMO :82183806 ) Name of Problem: History of obstructive sleep apnea ; Recorder: SYSTEM, SYSTEM; Confirmation: Confirmed ; Classification: Medical ; Code: 50361990 ; Last Updated: 01/20/2019 12:39 EDT ; Life Cycle Date: 01/20/2019 ; Life Cycle Status: Active ; Vocabulary: IMO Hyperlipidemia (SNOMED CT :86529737 ) Name of Problem: Hyperlipidemia ; Recorder: RAVEN REILLY RN; Confirmation: Confirmed ; Classification: Patient Stated ; Code: 22457828 ; Contributor System: PowerChart ; Last Updated: 09/03/2017 13:38 EST ; Life Cycle Date: 07/20/2014 ; Life Cycle Status: Active ; Vocabulary: SNOMED CT Hypertension (SNOMED CT :21287422 ) Name of Problem: Hypertension ; Recorder: RAVEN REILLY RN; Confirmation: Confirmed ; Classification: Patient Stated ; Code: 63152612 ; Contributor System: PowerChart ; Last Updated: 07/20/2014 9:33 EDT ; Life Cycle Date: 07/20/2014 ; Life Cycle Status: Active ; Vocabulary: SNOMED CT Impaired vision (SNOMED CT :95761716 ) Name of Problem: Impaired vision ; Recorder: RAVEN REILLY RN; Confirmation: Confirmed ; Classification: Patient Stated ; Code: 01687208 ; Contributor System: PowerChart ; Last Updated: 07/20/2014 9:32 EDT ; Life Cycle Date: 07/20/2014 ; Life Cycle Status: Active ; Vocabulary: SNOMED CT Migraine (SNOMED CT :62601116 ) Name of Problem: Migraine ; Recorder: RAVEN REILLY RN; Confirmation: Confirmed ; Classification: Patient Stated ; Code: 10042818 ; Contributor System: PowerChart ; Last Updated: 07/20/2014 9:35 EDT ; Life Cycle Date: 07/20/2014 ; Life Cycle Status: Active ; Vocabulary: SNOMED CT Stented coronary artery (SNOMED CT :8627705315 ) Name of Problem: Stented coronary artery ; Recorder: RAVEN REILLY RN; Confirmation: Confirmed ; Classification: Patient Stated ; Code: 5323801010 ; Contributor System: 3dplusmeChart ; Last Updated: 07/20/2014 9:33 EDT ; Life Cycle Date: 07/20/2014 ; Life Cycle Status: Active ; Vocabulary: SNOMED CT Diagnoses(Active) SOA - Shortness of Air Date: 10/31/2020 ; Diagnosis Type: Reason For Visit ; Confirmation: Complaint of ; Clinical Dx: SOA - Shortness of Air ; Classification: Medical ; Clinical Service: Non-Specified ; Code: PNED ; Probability: 0 ; Diagnosis Code: [id number] ED Height and Weight Height Source : Stated Height Entry Format : [place] Height, Feet : 5 ft(Converted to: 152 cm, 60 Inch) Height, Inches : 9 Inch(Converted to: 0 ft 9 Inch, 22.86 cm) Clinical Height : 175.26 cm Weight Source, ED : Critical estimated dosing weight Weight Entry Format : [place] Weight, Pounds : 197 lb Clinical Dosing Weight : 89.55 kg Body Surface Area (BSA) : 2.05 m2 Body Mass Index : 29.2 kg/m2 ([place]) Cannon Body Weight (IBW) : 69.73 kg Lina [...] on filedocumented in this encounter Care Teams Pre Press Manager Relationship Specialty Start Date End Date Marielos Amaral, BRAZER ASSEMBLER [address] [place] [address] PCP - General Nurse Practitioner 08/18/23 documented as of this encounter
--- OUTSIDE RECORDS SUMMARY | 2025-05-16 11:10 | XMS_ITS | Encounter Summary ---
Author Organization [employer] ([place], [place], [place], [place]) Address [address] [place] [address] Care Team Providers Care Spike Machine Feeder Name Role Phone Munir Marielos RESTREPO Primary Care Provider Encounter Details Date Type Department Care Team (Late st Contact Info) Description 04/26/2022 Transcribed Document [facility] [place] [address] [place] [address] ProviderHaroldo MD [address] [place] [address] Social History Tobacco Use Types [...] Do you speak a language other than Dutch at [facility]? Yes 10/30/2024 Do you want help with [...] these instructions at home: Medicines ??? Take ygag-tzd-pnncofi and prescription medicines only as told by [...] important. Where to find more information ??? [place] Association of Kidney Patients: www.aakp.org ??? National Kidney Foundation: www.kidney.org ??? [place] Kidney Fund: www.akfinc.org ??? Life Options Rehabilitation [...] provider. Document Revised: 08/01/2020 Document Reviewed: 08/01/2020 [employer] Patient Education ? 2020 [employer]. documented in this encounter Plan of Treatment Not on file documented as of this encounter Visit Diagnoses Not on filedocumented in this encounter Care Teams Spike Machine Feeder Relationship Specialty Start Date End Date Marielos Amaral, KAYE [address] [place] [address] PCP - General Nurse Practitioner 08/18/23 documented as of this encounter
--- OUTSIDE RECORDS SUMMARY | 2025-05-16 11:10 | XMS_ITS | Encounter Summary ---
Author Organization [employer] ([place], [place], [place], [place]) Address [address] [place] [address] Care Team Providers Care Silverlight Developer Name Role Phone Munir Brii RESTREPO Primary Care Provider Encounter Details Date Type Department Care Team (Late st Contact Info) Description 04/26/2022 Transcribed Document [facility] [place] [address] [place] [address] ProviderHaroldo MD [address], [place] [...] Never 10/30/2024 How often does anyone, zehra hravey family and friends, threaten you with harm? [...] Do you speak a language other than Fijian at [facility]? Yes 10/30/2024 Do you want help [...] Haroldo Provider, - 04/26/2022 1:19 PM CDT [facility] [address] [id number] DEION ANTOINE :1950 Visit Time:04/22/2022 Your Visit Summary Your Care Team Admitting Physician - NITA WHEELER DO-INT Attending Physician - BARRETT PAK DO Primary Care Physician - KATELYN MCKEON MD-[facility] Referring Physician - HERMES, SELF REFERRED [...] Within 1 week Where: [address] [address]- Business (1) Follow Up with PARAM WEBBER When Within 2 weeks Comments Follow up with LAMBERTO in 2 weeks @ [facility] with renal function panel and UA. Where: [address] [facility] [address] [place] [address]- Business (1) Medications What How Much When Instructions Next Dose Durable Medical Equipment (Glucometer Lancets) 1 Each Miscellaneous See Comment Glucometer Lancets. to check blood sugar TID. disp # 100. no refills. Pickup at [facility] (Glucometer Test Strips) 1 Each Miscellaneous See Comment Glucometer Test Strips. to check blood sugar TID. disp # 100. no refills. Pickup at [facility] Equipment (Glucometer) 1 Each Miscellaneous See Comment Glucometer Pickup at [facility] insulin glargine (Basaglar KwikPen 100 units/ mL subcutaneous solution) 15 Unit(s) SubCutaneous Once a day (at bedtime) Pickup at [facility] levothyroxine (levothyroxine 75 mcg (0.075 mg) oral tablet) 1 Tablet(s) Oral Every Day Pickup at [facility] amiodarone (amiodarone 200 mg oral tablet) [...] 1 Capsule(s) Oral Every Day Pharmacy Information [facility] [place]: [id number] [place], [place] [phone] Take your medications faithfully. Do NOT skip [...] these instructions at home: Medicines ??? Take yjma-fon-uuxvtwa and prescription medicines only as told by [...] important. Where to find more information ??? [place] Association of Kidney Patients: www.aakp.org ??? National Kidney Foundation: www.kidney.org ??? [place] Kidney Fund: www.akfinc.org ??? Life Options Rehabilitation [...] provider. Document Revised: 08/01/2020 Document Reviewed: 08/01/2020 [employer] Patient Education ?? 2020 [employer]. Emergency Awareness and Preventative Care STROKE is [...] Assistance with quitting is available by contacting 0-515-DLWM-NOW. This is a free resource providing counseling, [...] range between ( 0.0 and 7.0 ) Door #: 0.48 K/uL -- Normal range between ( 0.16 and 1.00 ) Eos #: 0.11 x10(3)/uL -- Normal range between ( 0.00 and 0.80 ) Door %: 9.8 % -- Normal range between [...] /LPF Urine Bilirubin Dipstick: Negative Urine Specific Rice: 1.010 -- Normal range between ( 1.005 [...] ( 50 and 1400 ) Sodium Ur Eckerman: 85 mMole/Liter Protein Ur Eckerman: 20 mg/dL General Chemistry 04/26/2022 1:12 PM [...] was given the opportunity to ask questions. Patient/Watch Electrician Name: Patient/Watch Electrician Signature: Relationship to Patient: Clinician/Hospital Watch Electrician Signature: Date: documented in this encounter Plan of Treatment Not on file documented as of this encounter Visit Diagnoses Not on filedocumented in this encounter Care Teams Silverlight Developer Relationship Specialty Start Date End Date Brii Amaral APRN [address] [place] [address] PCP - General Nurse Practitioner 08/18/23 documented as of this encounter
--- OUTSIDE RECORDS SUMMARY | 2025-05-16 11:10 | XMS_ITS | Clinical Summary ---
Author Organization [facility] Address [address] [place] [address] Phone Care Team Providers Care [id number] Tank Crewman Name Role Phone Unavailable Unavailable Conditions or Problems No information available. Medications No information available. Medications Administered No information available. Allergies, Adverse Reactions, Alerts No information available. Results No information available. Plan of Care No information available. Procedures No information available. Vital Signs No information available. Immunizations No information available. Advance Directives No information available.
--- OUTSIDE RECORDS SUMMARY | 2025-05-16 11:10 | XMS_ITS | Encounter Summary ---
Author Organization [employer] ([place], [place], [place], [place]) Address [address] [place] [address] Care Team Providers Care Animal Science Professor Name Role Phone Munir Marielos RESTREPO Primary Care Provider [phone] Encounter Details Date Type Department Care Team (Late st Contact Info) Description 04/26/2022 Transcribed Document [facility] [place] Family Medicine [address] [place] [address] ProviderHaroldo MD [address] [place] [address] Social History Tobacco Use Types [...] speak a language other than Citizen Of [place] at [facility]? Yes 10/30/2024 Do you want help [...] On: 04/26/2022 12:07 EDT by Zuly Gandara Rn-Skip Locator Final Discharge Planning Discharge Arrangements : Patient Post-Acute Information Patient Name: ZACKARY ANTOINE Gender: Male : [birth year] Age: 71 Years No Post-Acute Placement(s) Listed No Post-Acute Service(s) Listed No Curaspan Referral(s) Listed Discharge To Care Management : Home/Residential/Prison or Self Care - Zuly Gandara Rn-Skip Locator - 05/01/2022 12:07 EDT Final Narrative Note Final Narrative Note : DISPOSITION: Home without home health due to lack of coverage in patient's area. CM utilized [facility] Health's resources/assistance in attempting to place patient, and ultimately all possible agencies declined and the patient was not able to receive services. Agencies who declined include : [facility], [place], [facility], [facility], [facility], [facility], [facility] and Nurse On-Call. Zuly Gandara Rn-Skip Locator - 05/01/2022 12:07 EDT documented in this encounter Plan of Treatment Not on file documented as of this encounter Visit Diagnoses Not on filedocumented in this encounter Care Teams Animal Science Professor Relationship Specialty Start Date End Date Marielos Amaral APRN [address] [id number] PCP - General Nurse Practitioner 08/18/23 documented as of this encounter
--- OUTSIDE RECORDS SUMMARY | 2025-05-16 11:10 | XMS_ITS | Encounter Summary ---
Author Organization [employer] ([place], [place], [place], [place]) Address [address] [place] [address] Care Team Providers Care Surface Mount Technology Operator Name Role Phone Munir Marielos RESTREPO Primary Care Provider [phone] Encounter Details Date Type Department Care Team (Late st Contact Info) Description 04/25/2022 Transcribed Document [facility] [place] Family Medicine [address] [place] [address] ProviderHaroldo MD [address] [place] [address] Social History Tobacco Use Types [...] Do you speak a language other than Bangladeshi at [facility]? Yes 10/30/2024 Do you want help [...] On: 04/25/2022 16:15 EDT by LEXX LOWRY, RN-Returned Item ClerkConcrete Curer Progress Note Discharge Arrangements : Patient Post-Acute Information Patient Name: ZACKARY ANTOINE Gender: Male : [birth year] Age: 71 Years No Post-Acute Placement(s) Listed No Post-Acute Service(s) Listed No Curaspan Referral(s) Listed Barriers to Discharge Identified : Clinical Condition of Patient Barriers to Discharge Unresolved : Clinical Condition of Patient Patient Discharge Goal : Home [facility] Quality Web Info Shared w Pt/Fam : No Does the Patient have a Floor to SNF Benefit? : No Is the Patient Meeting Medical Necessity : Yes Physician Agreeable to Move Forward with D/C Plan? : Yes Did you Attend Multidisciplinary Rounds? 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 CM attempted to meet with pt this evening for CM eval, but pt sleeping soundly. CM will need to f/u with pt for full CM eval and send referrals as appropriate, as pt will likely benefit from HH vs inpt rehab. TYSHAWN RIGGINS, RN-Returned Item Clerk ED - 04/23/22 23:38:53 LEXX LOWRY, RN-Returned Item Clerk - 04/25/2022 16:15 EDT documented in this encounter Plan of Treatment Not on file documented as of this encounter Visit Diagnoses Not on filedocumented in this encounter Care Teams Surface Mount Technology Operator Relationship Specialty Start Date End Date Marielos Amaral APRN [address] [address] PCP - General Nurse Practitioner 08/18/23 documented as of this encounter
--- OUTSIDE RECORDS SUMMARY | 2025-05-16 11:10 | XMS_ITS | Encounter Summary ---
Author Organization [employer] ([place], [place], [place], [place]) Address [address] [place] [address] Care Team Providers Care Encapsulator Name Role Phone Munir Marielos RESTREPO Primary Care Provider [phone] Encounter Details Date Type Department Care Team (Late st Contact Info) Description 04/25/2022 Transcribed Document [facility] [place] Family Medicine [address] [place] [address] ProviderHaroldo MD [address] [place] [address] Social History Tobacco Use Types [...] Do you speak a language other than [place]arag[place] at [facility]? Yes 10/30/2024 Do you want help [...] Other (See Comment) Eliquis: 2.5 mg, Oral, [id number] Flomax: 0.4 mg, Oral, Daily Lokelma: 15 Gram, Oral, 1-Time Metoprolol Succinate ER: 50 mg, Oral, Daily Normal Saline 1,000 mL: 100 mL/Hr, IntraVENous Rocephin: 1 Gram, 100 mL/Hr, IV Piggyback, [id number] Tylenol: 650 mg, Oral, Q4H, PRN: Pain [...] mg tab 2.5 mg 1 Tab, Oral, [id number] atorvastatin 40 mg tab 40 mg 1 Tab, Oral, At Bedtime cefTRIAXone 1 Gram, IV Piggyback, F54BRdn cholecalciferol 1,000 unit tab 1,000 Units 1 [...] list: Medical Atrial fibrillation / SNOMED CT 70281646 / Confirmed CAD - Coronary artery disease / SNOMED CT 3802719707 / Confirmed Cardiomyopathy / SNOMED CT 309188656 / Confirmed Acute cerebrovascular accident (CVA) / SNOMED CT 030695844 / Confirmed History of obstructive sleep apnea / IMO 28333820 / Confirmed HLD - Hyperlipidemia / SNOMED CT 571032145 / Confirmed HTN - Hypertension / SNOMED CT 3690226597 / Confirmed Type 2 diabetes mellitus / SNOMED CT 458565195 / Confirmed, Active Problems (20) Acute cerebrovascular [...] Gastrointestinal: Soft, Non-tender, Non-distended. Integumentary: Warm, Dry, [place]. Neurologic: Alert, Oriented, No focal deficits. Psychiatric: [...] renal diet. - No emergent need of DIRECTOR ENTERPRISE DATA ARCHITECTURE. Will follow. If renal function continues to improve tomorrow with K within normal limits - Can be discharge. Follow up with LAMBERTO in 2 weeks @ [facility] with renal function panel and UA. documented in this encounter Plan of Treatment Not on file documented as of this encounter Visit Diagnoses Not on filedocumented in this encounter Care Teams Encapsulator Relationship Specialty Start Date End Date Marielos Amaral, MARINE PHOTOGRAPHER [address] [address] PCP - General Nurse Practitioner 08/18/23 documented as of this encounter
--- OUTSIDE RECORDS SUMMARY | 2025-05-16 11:10 | XMS_ITS | Encounter Summary ---
Author Organization [employer] ([place], [place], [place], [place]) Address [address] [place] [address] Care Team Providers Care Coating Machine Feeder Name Role Phone Marielos Amaral KAYE Primary Care Provider Encounter Details Date Type Department Care Team (Late st Contact Info) Description 10/31/2020 Transcribed Document [facility] [place] Family Medicine [address] [place] [address] ProviderHaroldo MD [address] [place], [place] [address] Social History Tobacco Use Types Packs/Day Years Used Date Smoking Tobacco: Never Assessed Sex and Gender Information Value Date Recorded Sex Assigned at Not on file Legal Sex Male 3:45 PM CDT Gender Identity Not on file Sexual Orientation Not on file documented as of this encounter Miscellaneous Notes * Cerner Conversion Note - Historical ProviderMD - 10/31/2020 11:42 PM MALTER OPERATOR ED Assessment Entered On: 11/01/2020 1:33 EST Performed On: 11/01/2020 1:32 EST by Cara Butler, fire extinguisher repairer inspector Quick Look Assessment Level of Consciousness : Alert, Awake Affect/Behavior : Appropriate, Calm, Cooperative Orientation : Oriented x 4 Skin Temperature : Warm Skin Description : Normal for ethnicity Cara Butler Rn - 11/01/2020 1:32 EST ED General-Functional Assess Information Obtained From : Patient Preferred Communication Mode : Verbal Communication Barrier : None Primary Language : Faroese Any Spiritual/Cultural Needs or Requests : No [...] ASMT, ED Neurologic Assessment WDL : WDL aCra Butelr Rn - 11/01/2020 1:32 EST Electronically signed by [facility], [facility] Conversion Stock Associate Cerner at 01/24/2023 10:42 AM CDT documented in this encounter Plan of Treatment Not on file documented as of this encounter Visit Diagnoses Not on filedocumented in this encounter Care Teams Coating Machine Feeder Relationship Specialty Start Date End Date Marielos Amaral, APNS [address] [place] [address] PCP - General Nurse Practitioner 08/18/23 documented as of this encounter
--- OUTSIDE RECORDS SUMMARY | 2025-05-16 11:10 | XMS_ITS | Encounter Summary ---
Author Organization [employer] ([place], [place], [place], [place]) Address [address] [place] [address] Care Team Providers Care Group Home Manager Name Role Phone AmaralMarielos KAYE Primary Care Provider Encounter Details Date Type Department Care Team (Late st Contact Info) Description 10/31/2020 Transcribed Document [facility] [place] Family Medicine [address] [place] [address] ProviderHaroldo MD [address] [place], [place] [address] Social History Tobacco Use Types Packs/Day Years Used Date Smoking Tobacco: Never Assessed Sex and Gender Information Value Date Recorded Sex Assigned at Not on file Legal Sex Male 3:45 PM CDT Gender Identity Not on file Sexual Orientation Not on file documented as of this encounter Miscellaneous Notes * Cerner Conversion Note - Historical ProviderMD - 10/31/2020 11:42 PM ROOF BOLTER OPERATOR [place] Suicide Severity Rating Scale (C-SSRS) Entered On: 11/01/2020 1:33 EST Performed On: 11/01/2020 1:32 EST by Cara Butler Rn [place] Suicide Severity Rating Scale (C-SSRS) CSSRS Past Month Wish to be : No CSSRS Past Month Suicidal Thoughts : No CSSRS Lifetime Suicide Behavior : No Suicide Severity Rating Score : 0 Suicide Severity Rating : No Additional Care Required at this time Cara Butler Rn - 11/01/2020 1:32 EST Electronically signed by Brittany, [facility] Conversion Shipping Inspector Cerner at 01/24/2023 10:39 AM CDT documented in this encounter Plan of Treatment Not on file documented as of this encounter Visit Diagnoses Not on filedocumented in this encounter Care Teams Group Home Manager Relationship Specialty Start Date End Date Marielos Amaral, KAYE [address] [place] [address] PCP - General Nurse Practitioner 08/18/23 documented as of this encounter
--- OUTSIDE RECORDS SUMMARY | 2025-05-16 11:11 | XMS_ITS | Encounter Summary ---
Author Organization [employer] ([place], [place], [place], [place]) Address [address] [place] [address] Care Team Providers Care Pit Manager Name Role Phone Marielos Amaral APRN Primary Care Provider Encounter Details Date Type Department Care Team (Late st Contact Info) Description 04/12/2020 Transcribed Document [facility] [place] [address] [place] [address] ProviderHaroldo MD [address] [place] [address] Social History Tobacco Use Types Packs/Day Years [...] JOYCE BrittB./Sex: 1950 Male Med Rec #: [id number] Physician: PRINCESS DOCKERY MD-GAE Financial #: [id number] Pt. Type: E Room/Bed: [facility]/ Admit/Disch: 04/12/20 06:32:00 - Institution: [facility] [place] Endo - Case Attendance Entry 1 Entry 2 Entry 3 Case Attendee PRINCESS DOCKERY BRISCOE, ANTHONY W. Thayer, Dena, RN -GAE Role Performed Surgeon/Proceduralist, Scrub, First Lookback Coordinator, First First Time In 04/12/20 07:32:00 04/12/20 [...] Case Attendee TOVA MOELLER STIGERS, DAVID, MD-ANS COMMERCIAL LOAN COLLECTION OFFICER-ANS Role Performed COMMERCIAL LOAN COLLECTION OFFICER/Nurse Electronics Warfare Technician Anesthesiologist of Record Time In 04/12/20 07:32:00 04/12/20 07:32:00 Time Out 04/12/20 07:51:00 04/12/20 07:51:00 Procedure Esophagogastroduodenosco Esophagogastroduodenosco py, EGD w py, EGD w Radiofrequency Radiofrequency Ablation, Esophageal Ablation, Esophageal Biopsy Biopsy Other Attendee Superficial Wound Closed By: Last Modified By: Roxana Brady RN Thayer, Dena, RN 04/12/20 07:48:42 04/12/20 07:48:42 [facility] [place] Endo - Case Attendance Audit 04/12/20 07:48:42 Work Car Operator: [id number] Modifier: [id number] <+> Time Out 1 <*> Procedure [...] w Radiofrequency Ablation, Esophageal Biopsy 04/12/20 07:40:20 Work Car Operator: [id number] Modifier: [id number] 1 <*> Procedure Esophagogastroduodenoscopy, EGD w Radiofrequency Ablation 2 <*> Procedure Esophagogastroduodenoscopy, EGD w Radiofrequency Ablation 3 <*> Procedure Esophagogastroduodenoscopy, EGD w Radiofrequency Ablation 4 <*> Procedure Esophagogastroduodenoscopy, EGD w Radiofrequency Ablation 5 <*> Procedure Esophagogastroduodenoscopy, EGD w Radiofrequency Ablation 04/12/20 07:37:28 Work Car Operator: [id number] Modifier: [id number] <+> 1 Procedure <+> 2 Time In <+> 2 Procedure <+> 3 Time In <+> 3 Procedure <+> 4 Time In <+> 4 Procedure <+> 5 Time In <+> 5 Procedure [facility] [place] Endo - Case Times Entry 1 Patient In Room Time 04/12/20 07:32:00 Out Room Time 04/12/20 07:51:00 Anesthesia Start Time 04/12/20 07:32:00 Stop Time 04/12/20 07:48:00 Surgery / Procedure Times Start Time 04/12/20 07:37:00 Stop Time 04/12/20 07:48:00 Last Modified By: Roxana Brady RN 04/12/20 07:48:40 [facility] [place] Endo - Case Times Audit 04/12/20 07:48:40 Work Car Operator: [id number] Modifier: [id number] <+> 1 Out Room Time <+> 1 Stop Time <+> 1 Stop Time 04/12/20 07:37:43 Work Car Operator: [id number] Modifier: [id number] <+> 1 Start Time [facility] [place] Endo - Cautery Entry 1 ESU Identification Cautery Type Other Cautery Type 90 degree RFA Comments ID Number [id number] ID Type Serial Number Cautery Settings ESU [...] - Fire Risk Assessment Audit 04/12/20 07:35:37 Work Car Operator: [id number] Modifier: [id number] <+> 1 Fire Risk Assessment Complete E Endo - General Case Line Welder 1 Case Information OR Endo 01 SJE [...] Entry 1 Medication/Irrigant Mucomyst 200mg/1ml 10ml - [id number] Route of Esophageal Wash Administration Dose Dose [...] Endo - Patient Positioning Audit 04/12/20 07:40:20 Work Car Operator: [id number] Modifier: [id number] 1 <*> Procedure Esophagogastroduodenoscopy, EGD w Radiofrequency [...] Endo - Sign Out Audit 04/12/20 07:50:57 Work Car Operator: [id number] Modifier: [id number] <+> 1 RN Sign Out Signature Date/Time [...] Endo - Surgical Procedures Audit 04/12/20 07:48:56 Work Car Operator: [id number] Modifier: [id number] 1 <*> Procedure Esophagogastroduodenoscopy 1 <+> Stop 2 <*> Procedure EGD w Radiofrequency Ablation 2 <+> Stop 3 <*> Procedure Esophageal Biopsy 3 <+> Stop 04/12/20 07:48:27 Work Car Operator: [id number] Modifier: [id number] 1 <*> Procedure Esophagogastroduodenoscopy 2 <*> Procedure EGD w Radiofrequency Ablation 3 <*> Procedure Esophageal Biopsy 04/12/20 07:40:16 Work Car Operator: [id number] Modifier: [id number] <+> 3 Procedure <+> 3 Primary Procedure <+> 3 Primary Surgeon <+> 3 Specialty <+> 3 Start <+> 3 Wound Class <+> 3 Anesthesia Type 04/12/20 07:38:44 Work Car Operator: [id number] Modifier: [id number] 2 <*> Procedure EGD w Radiofrequency Ablation [...] Endo - Time Out Audit 04/12/20 07:40:21 Work Car Operator: [id number] Modifier: [id number] 1 <*> Procedure to be Performed Esophagogastroduodenoscopy, EGD w Radiofrequency Ablation 04/12/20 07:39:25 Work Car Operator: [id number] Modifier: [id number] 1 <*> Procedure to be Performed Esophagogastroduodenoscopy, EGD w Radiofrequency Ablation Case Comments <None> Finalized By: Roxana Brady RN Document Signatures Signed By: Roxana Brady RN 04/12/20 07:51 documented in this encounter Plan of Treatment Not on file documented as of this encounter Visit Diagnoses Not on filedocumented in this encounter Care Teams Pit Manager Relationship Specialty Start Date End Date Marielos Amaral, [facility] [address] [address] PCP - General Nurse Practitioner 08/18/23 documented as of this encounter
--- OUTSIDE RECORDS SUMMARY | 2025-05-16 11:11 | XMS_ITS | Encounter Summary ---
Author Organization [employer] ([place], [place], [place], [place]) Address [address] [place] [address] Care Team Providers Care Extracting Machine Operator Name Role Phone Marielos Amaral KAYE Primary Care Provider Encounter Details Date Type Department Care Team (Late st Contact Info) Description 02/07/[address] [facility] [place] Family Medicine [address] [place] [address] ProviderHaroldo MD [address] [place] [address] Social History Tobacco Use Types Packs/Day Years [...] on filedocumented in this encounter Care Teams Extracting Machine Operator Relationship Specialty Start Date End Date Amaral, Marielos, SCIENTIST IMMUNOLOGY [address] [place] [address] PCP - General Nurse Practitioner 08/18/23 documented as of this encounter
--- OUTSIDE RECORDS SUMMARY | 2025-05-16 11:11 | XMS_ITS | Encounter Summary ---
Author Organization [employer] ([place], [place], [place], [place]) Address [address] [place] [address] Care Team Providers Care Administrative Services Manager Name Role Phone Marielos Amaral KAYE Primary Care Provider [phone] Encounter Details Date Type Department Care Team (Late st Contact Info) Description 02/06/2019 Transcribed Document [facility] [place] Family Medicine [facility] [place] [address] ProviderHaroldo MD [address] [place] [address] Social History Tobacco Use Types Packs/Day Years [...] Ambulatory Legal Guardian : Unaccompanied Support Person/Patient Hot Worker : Yes Support Person/Pt Rep Name : Enriqueta - Contact Password : peanut Support Person/Pt Rep Contact Information : [phone] Want Family/Rep/Phys Notified of Admit : No Emergency Contact #1 : Enriqueta Carrasco Emergency Contact #1 Emergency Contact #1 Relationship : Emergency Contact #2 : January Jet Emergency Contact #2 Emergency Contact #2 Relationship : daughter Chief Complaint : pt here c/o right shoulder pain and weakness to right arm and loss of balance technical data analyst strength equal bilaterally decreased sensation to right arm and right leg no facial droop or slurred speech equal bilateral lower extremities Information Obtained From : Patient Primary Language : Yoruba Communication Barrier : None Lina Chaudhary Rn-Flex [...] Scale Risk Level : 25-45 Medium Risk [place] Fall Interventions : Adequate lighting, Assistive devices [...] Source : Stated Height Entry Format : Nabb Height, Feet : 5 ft(Converted to: 152 cm, 60 Inch) Height, Inches : 9 Inch(Converted to: 0 ft 9 Inch, 22.86 cm) Clinical Height : 175.26 cm Weight Source : Standing scale Weight Entry Format : Nabb Clinical Dosing Weight : 79.55 kg Weight, Pounds : 175 lb Body Surface Area (BSA) : 1.95 m2 Body Mass Index : 25.9 kg/m2 (HI) [place] Body Weight : 70 kg Lina Chaudhary [...] filedocumented in this encounter Care Teams Administrative Services Manager Relationship Specialty Start Date End Date Marielos Amaral, BLOCK OPERATOR [address] [place] [address] PCP - General Nurse Practitioner 08/18/23 documented as of this encounter
--- OUTSIDE RECORDS SUMMARY | 2025-05-16 11:11 | XMS_ITS | Encounter Summary ---
Author Organization [employer] ([place], [place], [place], [place]) Address [address] [place] [address] Care Team Providers Care Belt Dresser Name Role Phone Marielos Amaral APRN Primary Care Provider Encounter Details Date Type Department Care Team (Late st Contact Info) Description 02/06/2019 Transcribed Document [facility] Radiology [address] [phone] Fidencio Tolliver MD [address] [place] [address] [address] [place] [address] Social History Tobacco Use Types Packs/Day Years [...] risk factors. CODE STATUS: Full code CONSULTS: [facility] WORKUP / PROCEDURES: HOSPITAL FOLLOWUP: 02/06 [...] Results Review Radiology Results (Last 48 hours) [id number] -- 02/05/2019 23:59 CT Head WO (02/05/2019 [...] approximately 50% stenosis of theproximal basilar artery. replanter show mild stenosis proximally. IMPRESSION: 1. 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 Anterior circulation intact.3. Mild bilateral WATER SYSTEMS ENGINEER disease. This study was performed using dose [...] on filedocumented in this encounter Care Teams Belt Dresser Relationship Specialty Start Date End Date Marielos Amaral, KAYE [address] [place] [address] PCP - General Nurse Practitioner 08/18/23 documented as of this encounter
--- OUTSIDE RECORDS SUMMARY | 2025-05-16 11:11 | XMS_ITS | Encounter Summary ---
Author Organization [employer] ([place], [place], [place], [place]) Address [address] [place] [address] Care Team Providers Care Bulb Grader Name Role Phone Marielos Amaral APRN Primary Care Provider Encounter Details Date Type Department Care Team (Late st Contact Info) Description 02/06/2019 Transcribed Document [facility] [place] [address] [place] [address] ProviderHaroldo MD [address] [place] [address] Social History Tobacco Use Types Packs/Day Years [...] Plan: [employer] GOLD PLUS HMO Policy Number: [id number] Authorization Number: Insurance Primary Name : [employer] Choice Authorization Status-Primary : Opo status approv Authorized Service Begin Date-Primary : 02/05/2019 EDT Authorization Comments-Primary : setup on availity obs approved. Historical Authorization Comments-Primary : No Authorization Comments Found GEGE JUÁREZ RN - 02/06/2019 8:52 EDT Electronically signed by Renetta Soto Conversion Low Emission Automobile Designer Cerner at 01/24/2023 10:26 AM CDT documented in this encounter Plan of Treatment Not on file documented as of this encounter Visit Diagnoses Not on filedocumented in this encounter Care Teams Bulb Grader Relationship Specialty Start Date End Date Marielos Amaral, LICENSING REPRESENTATIVE [address] [place] [address] PCP - General Nurse Practitioner 08/18/23 documented as of this encounter
--- OUTSIDE RECORDS SUMMARY | 2025-05-16 11:11 | XMS_ITS | Encounter Summary ---
Author Organization [employer] ([place], [place], [place], [place]) Address [address] [place] [address] Care Team Providers Care Vp Integrity Name Role Phone Marielos Amaral KAYE Primary Care Provider Encounter Details Date Type Department Care Team (Late st Contact Info) Description 02/06/2019 Transcribed Document [facility] [place] Family Medicine [facility] [address] ProviderHaroldo MD [address] [place] [address] Social History Tobacco Use Types Packs/Day Years [...] were negative according to endorsement from physician medical research assistant ER. Patient was _seen in _ coordination [...] report available, but per endorsement from physician medical research assistant, they were all negative without any obstructive [...] Brennan Lopes M.D. Electronically signed by Brittany, [facility] Conversion Dry Heat Cabinet Attendant Cerner at 01/24/2023 10:41 AM CDT documented in this encounter Plan of Treatment Not on file documented as of this encounter Visit Diagnoses Not on filedocumented in this encounter Care Teams Vp Integrity Relationship Specialty Start Date End Date Marielos Amaral, KAYE [address] [place] [id number] PCP - General Nurse Practitioner 08/18/23 documented as of this encounter
--- OUTSIDE RECORDS SUMMARY | 2025-05-16 11:11 | XMS_ITS | Encounter Summary ---
Author Organization [employer] ([place], [place], [place], [place]) Address [address] [place] [address] Care Team Providers Care C.O.D. Audit Clerk Name Role Phone Marielos Amaral KAYE Primary Care Provider Encounter Details Date Type Department Care Team (Late st Contact Info) Description 02/06/2019 Transcribed Document [facility] [place] [facility] [address] ProviderHaroldo MD [address] [place] [address] Social History Tobacco Use Types Packs/Day Years [...] to right arm and loss of balance boot and saddle repair person strength equal bilaterally decreased sensation to right [...] Physician Consult to Spiritual Care Consult to Paediatric Thoracic Physician CRP C-Reactive Protein Diet, Adult Do Not [...] Lymph # 2.34 x10(3)/uL 02/05/2019 21:52 EDT [place] % 8.7 % 02/05/2019 21:52 EDT [place] # 0.99 K/uL 02/05/2019 21:52 EDT Eos [...] Appearance CLEAR2 02/05/2019 23:59 EDT Urine Specific [place] 1.016 02/05/2019 23:59 EDT Urine pH Dipstick [...] Code, Continuous Order Electronically signed by Brittany [facility] Conversion Coin Box Inspector Cerner at 01/24/2023 10:25 AM CDT documented in this encounter Plan of Treatment Not on file documented as of this encounter Visit Diagnoses Not on filedocumented in this encounter Care Teams C.O.D. Audit Clerk Relationship Specialty Start Date End Date Marielos Amaral, HORSE RACER [address] [phone] PCP - General Nurse Practitioner 08/18/23 documented as of this encounter
--- OUTSIDE RECORDS SUMMARY | 2025-05-16 11:11 | XMS_ITS | Encounter Summary ---
Author Organization [employer] ([place], [place], [place], [place]) Address [address] [place] [address] Care Team Providers Care Sheet Hanger Name Role Phone Marielos Amaral KAYE Primary Care Provider [phone] Encounter Details Date Type Department Care Team (Late st Contact Info) Description 02/06/2019 Transcribed Document [facility] [place] Family Medicine [address] [place] [address] ProviderHaroldo MD [address] [place] [address] Social History Tobacco Use Types Packs/Day Years [...] JEANNETTE BROWER, RAMONA General Information Visit Type, AOC OPERATIONS INTELLIGENCE OFFICER : Initial evaluation Patient Orders : Speech Language Pathology Evaluation and Treatment -111 Start: 02/06/19 0:17:00 EDT, Routine, For Speech Language Cognitive Eval and Treat - FIORELLA OWENS MD-INT Admission Date : Admission Date/Time: 02/05/19 23:59:00 Medical Chart Reviewed, AOC OPERATIONS INTELLIGENCE OFFICER : Yes Personal Devices : Personal Devices No Devices Recorded Assistive Devices : Assistive Devices No Devices Recorded Active Diagnoses : 02/05/2019 00:00 Ataxia, unspecified 02/05/2019 00:00 Weakness Therapy Diagnosis, AOC OPERATIONS INTELLIGENCE OFFICER : Cognition WNL Previous Speech/Language Evaluations : N/A Previous Swallow Precautions : Bedside this admit, recs for reg/thin Previous Cognitive Evaluations : N/A Diet/Intake Prior to Current Admission : Regular/thin Diet/Intake During Current Admission : Regular/thin Intubation Comment, AOC OPERATIONS INTELLIGENCE OFFICER : No intubation on this admit Vital [...] 11:51 EDT General Status Patient Received Status, AOC OPERATIONS INTELLIGENCE OFFICER : Long sitting in bed Patient Left Status, AOC OPERATIONS INTELLIGENCE OFFICER : Long sitting in bed JENANETTE BROWER SLP - 02/07/2019 11:51 EDT Pain [...] 11:51 EDT Evaluation Methods Types of Evaluation, AOC OPERATIONS INTELLIGENCE OFFICER : Informal JEANNETTE BROWER SLP - 02/07/2019 11:51 EDT [facility] Impressions Impressions, Speech/Lang/Cog : No evidence of speech/language or cognitive impairment present [facility] Overall Impressions : 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 Informal cognitive linguistic evaluation completed this date. The pt presents with no overt deficits and reports no concerns at this time. No further f/u indicated. JEANNETTE BROWER SLP - 02/07/2019 11:51 EDT Therapy Indication Assessment AOC OPERATIONS INTELLIGENCE OFFICER Indicated : No AOC OPERATIONS INTELLIGENCE OFFICER Not Indicated : At prior level of function, No skilled services indicated AOC OPERATIONS INTELLIGENCE OFFICER Interdisciplinary Consultation Needs : No JEANNETTE BROWER SLP - 02/07/2019 11:51 EDT Education Barriers To Learning : None evident Individuals Taught : Patient Readiness to Learn : Cooperative Learning Style Preferences Patient : None JEANNETTE BROWER SLP - 02/07/2019 11:51 EDT AOC OPERATIONS INTELLIGENCE OFFICER Education Assessment Grid 2 Review Results of Evaluations : Verbalizes understanding JEANNETTE BROWER SLP - 02/07/2019 11:[address] [facility] AOC OPERATIONS INTELLIGENCE OFFICER Charges Evaluation of Speech Production & Language : 1 JEANNETTE BROWER SLP - 02/07/2019 11:51 EDT documented in this encounter Plan of Treatment Not on file documented as of this encounter Visit Diagnoses Not on filedocumented in this encounter Care Teams Sheet Hanger Relationship Specialty Start Date End Date Marielos Amaral, LIEUTENANT SHIFT SUPERVISOR [address] [place] [address] PCP - General Nurse Practitioner 08/18/23 documented as of this encounter
--- OUTSIDE RECORDS SUMMARY | 2025-05-16 11:11 | XMS_ITS | Encounter Summary ---
Author Organization [employer] ([place], [place], [place]) Address [address] [place] [address] Care Team Providers Care Ethnic Origins Teacher Name Role Phone Marielos Amaral KAYE Primary Care Provider Encounter Details Date Type Department Care Team (Late st Contact Info) Description 02/06/2019 Transcribed Document [facility] [place] [address] [place] [address] ProviderHaroldo MD [address] [place] [address] Social History Tobacco Use Types Packs/Day Years [...] on filedocumented in this encounter Care Teams Ethnic Origins Teacher Relationship Specialty Start Date End Date Amaral, Marielos, DEVICE REPAIR TECHNICIAN [address] [place] [address] PCP - General Nurse Practitioner 08/18/23 documented as of this encounter
--- OUTSIDE RECORDS SUMMARY | 2025-05-16 11:11 | XMS_ITS | Encounter Summary ---
Author Organization [employer] ([place], [place], [place], [place]) Address [address] [place] [address] Care Team Providers Care Warper Creeler Name Role Phone AmaralMarielos roque KAYE Primary Care Provider [phone] Encounter Details Date Type Department Care Team (Late st Contact Info) Description 02/06/2019 Transcribed Document [facility] Family Medicine [address] [place] [address] ProviderHaroldo MD [address] [place] [address] Social History Tobacco Use Types Packs/Day Years [...] 02/06/2019 RAINE FERNANDO - 02/06/2019 9:53 EDT documented in this encounter Plan of Treatment Not on file documented as of this encounter Visit Diagnoses Not on filedocumented in this encounter Care Teams Warper Creeler Relationship Specialty Start Date End Date Marielos Amaral, STATE ARCHIVIST [address] [place] [address] PCP - General Nurse Practitioner 08/18/23 documented as of this encounter
--- OUTSIDE RECORDS SUMMARY | 2025-05-16 11:11 | XMS_ITS | Encounter Summary ---
Author Organization [employer] ([place], [place], [place], [place]) Address [address] [place] [address] Care Team Providers Care Hyperbaric Nurse Name Role Phone Marielos Amaral KAYE Primary Care Provider Encounter Details Date Type Department Care Team (Late st Contact Info) Description 02/06/2019 Transcribed Document [facility] [place] Family Medicine [address] [place] [address] ProviderHaroldo MD [address] [place] [address] Social History Tobacco Use Types Packs/Day Years [...] PT - 02/06/2019 15:13 EDT] ) ARYAN GOSS PT - 02/06/2019 15:13 EDT Supine to Sit Device : Rails Sit to Stand Device : None, Belt, gait, Other: PHYSICAL THERAPIST AIDE of 1 Stand to Sit Device : None, Belt, gait, Other: PHYSICAL THERAPIST AIDE of 1 Sit to Supine Devices : [...] Walking Distance : 180 ft with min PHYSICAL THERAPIST AIDE due to min ataxia. pt with 2-3 occasions of LOB and 1 episode of R toe drag during R swing phase. Verbal cues to slow janna to reduce ataxia. and improve dynamic balance. Ambulatory Devices : Gait belt, Other: PHYSICAL THERAPIST AIDE of 1 Gait Deviations : Yes Left [...] ARYAN GOSS, PT - 02/06/2019 15:13 EDT Geophysics Teacher Goals Mobility/Bed Mobility LTG PT Grid Goal [...] ARYAN GOSS, PT - 02/06/2019 15:13 EDT [facility] PT Charges PT Eval Low Complexity : 1 ARYAN GOSS PT - 02/06/2019 15:13 EDT Electronically signed by Brittany [facility] Conversion Public Relations Studies Director Cerner at 01/24/2023 10:26 AM CDT documented in this encounter Plan of Treatment Not on file documented as of this encounter Visit Diagnoses Not on filedocumented in this encounter Care Teams Hyperbaric Nurse Relationship Specialty Start Date End Date Marielos Amaral, KAYE [address] [address] PCP - General Nurse Practitioner 08/18/23 documented as of this encounter
--- OUTSIDE RECORDS SUMMARY | 2025-05-16 11:11 | XMS_ITS | Encounter Summary ---
Author Organization [employer] ([place], [place], [place], [place]) Address [address] [place] [address] Care Team Providers Care Operations Administrator Name Role Phone Marielos Amaral KAYE Primary Care Provider Encounter Details Date Type Department Care Team (Late st Contact Info) Description 02/08/[address] [facility] [place] Family Medicine [address] [place] [address] ProviderHaroldo MD [address] [place] [address] Social History Tobacco Use Types Packs/Day Years [...] on filedocumented in this encounter Care Teams Operations Administrator Relationship Specialty Start Date End Date Amaral, Marielos, MEDICAL PHOTOGRAPHER [address] [place] [address] PCP - General Nurse Practitioner 08/18/23 documented as of this encounter
--- OUTSIDE RECORDS SUMMARY | 2025-05-16 11:11 | XMS_ITS | Encounter Summary ---
Author Organization [employer] ([place], [place], [place], [place]) Address [address] [place] [address] Care Team Providers Care Parking Enforcer Name Role Phone Marielos Amaral KAYE Primary Care Provider Encounter Details Date Type Department Care Team (Late st Contact Info) Description 02/06/2019 Transcribed Document [facility] [place] [address] [place] [address] ProviderHaroldo MD [address] [place] [address] Social History Tobacco Use Types Packs/Day Years [...] 02/06/2019 8:02 EDT Electronically signed by Brittany [facility] Conversion Em Physician Kodak at 01/24/2023 10:45 AM CDT documented in this encounter Plan of Treatment Not on file documented as of this encounter Visit Diagnoses Not on filedocumented in this encounter Care Teams Parking Enforcer Relationship Specialty Start Date End Date Marielos Amaral, BAT CARRIER [address] [place] [address] PCP - General Nurse Practitioner 08/18/23 documented as of this encounter
--- OUTSIDE RECORDS SUMMARY | 2025-05-16 11:11 | XMS_ITS | Encounter Summary ---
Author Organization [employer] ([place], [place], [place], [place]) Address [address] [place] [address] Care Team Providers Care Photo Editor Name Role Phone Marielos Amaral KAYE Primary Care Provider Encounter Details Date Type Department Care Team (Late st Contact Info) Description 02/06/[address] [facility] [place] [facility] [place] [address] ProviderHaroldo MD [address] [place] [address] Social History Tobacco Use Types Packs/Day Years [...] to right arm and loss of balance digital producer strength equal bilaterally decreased sensation to right [...] cerebellar signs. Radiology Results (Last 48 hours) [id number] -- 02/05/2019 23:59 CT Head WO (02/05/2019 [...] approximately 50% stenosis of theproximal basilar artery. press tender short goods show mild stenosis proximally. IMPRESSION: 1. 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 Anterior circulation intact.3. Mild bilateral BUFFING AND SUEDING MACHINE OPERATOR disease. 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 at [facility] main Recommendations: (i) Cardiology input [...] Lymph # 2.34 x10(3)/uL 02/05/2019 21:52 EDT [place] % 8.7 % 02/05/2019 21:52 EDT [place] # 0.99 K/uL 02/05/2019 21:52 EDT Eos [...] Appearance CLEAR2 02/05/2019 23:59 EDT Urine Specific Fletcher 1.016 02/05/2019 23:59 EDT Urine pH Dipstick [...] 02/05/2019 21:52 EDT Electronically signed by Brittany [facility] Conversion Academic Affairs Director Cerner at 01/24/2023 10:30 AM CDT documented in this encounter Plan of Treatment Not on file documented as of this encounter Visit Diagnoses Not on filedocumented in this encounter Care Teams Photo Editor Relationship Specialty Start Date End Date Amaral Marielos, STRAND BUNCHER FINE WIRE [address] [address] PCP - General Nurse Practitioner 08/18/23 documented as of this encounter
--- OUTSIDE RECORDS SUMMARY | 2025-05-16 11:11 | XMS_ITS | Encounter Summary ---
Author Organization [employer] ([place], [place], [place], [place]) Address [address] [place] [address] Care Team Providers Care Saturator Tender Name Role Phone Marielos Amaral KAYE Primary Care Provider Encounter Details Date Type Department Care Team (Late st Contact Info) Description 02/08/2019 Transcribed Document [facility] [place] Family Medicine [address] [place] [address] ProviderHaroldo MD [address] [place] [address] Social History Tobacco Use Types Packs/Day Years [...] On: 02/08/2019 11:45 EDT by GERALDINE BROWN, RN-Automotive Service Technician Initial Assessment I Previously Documented Living [...] Listed? : Yes Medical Durable Power of Rustic Terrazzo Setter Name : No Legal Guardian : No Is Guardianship Needed : No GERALDINE BROWN RN-Automotive Service Technician - 02/08/2019 11:45 EDT Initial Assessment II Sensory and Motor Deficits : None Current Home Treatments and Equipment : Bedside commode, Cane, CPAP, Shower chair, Walker Does the Patient have a Floor to SNF Benefit? : Yes GERALDINE BROWN RN-Automotive Service Technician - 02/08/2019 11:45 EDT Discharge Needs I Anticipated Discharge Date : 02/09/2019 EDT Anticipated Discharge To, CM : Other: outpatient physical therapy at [facility] Current Home Treatment/Equipment : Current Home Treatment/Equipment No qualifying data available. Post Acute/Home Treatments : None GERALDINE BROWN RN-Automotive Service Technician - 02/08/2019 11:45 EDT Discharge Needs II Professional Skilled Services : Professional Skilled Services No qualifying data available. Services and Community Resources : Physical Therapy Needs Assistance with Transportation : No Discharge Options Discussed with Patient : Outpatient services, Short term rehabilitation GERALDINE BROWN RN-Automotive Service Technician - 02/08/2019 11:45 EDT Narrative Note Narrative Note : Met with pt and his . Pt states that he lives with his . He states that he has lots of equipement at home but does not use it currently. He states that he has a CPAP but is not currently wearing it due to a place on his head. He states that the Intern is trying different masks to find one that will work. Discussed discharge plan with pt and his . Pt and request outpatient PT at [facility] PT in [place]. Pt's states that is where she currently goes and she would like pt to go as well. She wants to schedule pt's first appointment. Pt and deny any other discharge needs at this time. GERALDINE BROWN RN-Automotive Service Technician - 02/08/2019 11:45 EDT documented in this encounter Plan of Treatment Not on file documented as of this encounter Visit Diagnoses Not on filedocumented in this encounter Care Teams Saturator Tender Relationship Specialty Start Date End Date Marielos Amaral APRN [address] [address] PCP - General Nurse Practitioner 08/18/23 documented as of this encounter
--- OUTSIDE RECORDS SUMMARY | 2025-05-16 11:11 | XMS_ITS | Encounter Summary ---
Author Organization [employer] ([place], [place], [place], [place]) Address [address] [place] [address] Care Team Providers Care Silk Washing Machine Operator Name Role Phone Marielos Amaral APRN Primary Care Provider Encounter Details Date Type Department Care Team (Late st Contact Info) Description 02/06/2019 Transcribed Document [facility] Radiology [address] [place] [id number] Camilo Steven MD [address] [place] [address] Social History Tobacco Use Types Packs/Day Years [...] yrs ago), HTN, HLD that presented to [facility] ED at almost midnight last nite (02/05/19) due to right shoulder pain and weakness to right arm, with loss of balance, with bilateral supervisor sintering plant strength reduced and sensation to right arm/leg, but no facial droop or slurred speech. Patient has been on Amiodarone, Metoprolol and Aspirin for PAF but no OAC. Patient is followedby Dr. Sarai Peterson in [place]. Cardiology consulted for further evaluation and medical [...] All Problems Impaired vision / SNOMED CT 56493690 / Confirmed Stented coronary artery / SNOMED CT 6400344982 / Confirmed Angina / SNOMED CT 008282456 / Confirmed Coronary artery disease / SNOMED CT 9904837252 / Confirmed Hyperlipidemia / SNOMED CT 57801985 / Confirmed Hypertension / SNOMED CT 68907332 / Confirmed Heart failure / SNOMED CT 417581521 / Confirmed Heart murmur / SNOMED CT 473871012 / Confirmed Enlarged prostate / SNOMED CT 733226773 / Confirmed GERD - Gastro-esophageal reflux disease / SNOMED CT 4566398921 / Confirmed Diabetes mellitus type II / SNOMED CT 91897308 / Confirmed Migraine / SNOMED CT 95118105 / Confirmed History of obstructive sleep apnea / IMO 95222990 / Confirmed, Active Problems (13) Angina Coronary [...] cardiac catheterization. hernia repair. tonsillectomy. Cholecystectomy; (CPT4 [id number]). appendectomy. left arm surgery. coronary stents. Social [...] 24 Hours) Radiology Results (Last 48 hours) [id number] -- 02/05/2019 23:59 CT Head WO (02/05/2019 [...] approximately 50% stenosis of theproximal basilar artery. ciaio lumite injector show mild stenosis proximally. IMPRESSION: 1. 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 Anterior circulation intact.3. Mild bilateral EXECUTIVE PILOT disease. This study was performed using dose [...] filedocumented in this encounter Care Teams Silk Washing Machine Operator Relationship Specialty Start Date End Date Marielos Amaral, KAYE [address] [place] [address] PCP - General Nurse Practitioner 08/18/23 documented as of this encounter
--- OUTSIDE RECORDS SUMMARY | 2025-05-16 11:11 | XMS_ITS | Encounter Summary ---
Author Organization [employer] ([place], [place], [place], [place]) Address [address] [place] [address] Care Team Providers Care Technology Instructor Name Role Phone Marielos Amaral KAYE Primary Care Provider Encounter Details Date Type Department Care Team (Late st Contact Info) Description 02/06/2019 Transcribed Document [facility] [place] Family Medicine [address] [place] [address] ProviderHaroldo MD [address] [place] [address] Social History Tobacco Use Types Packs/Day Years [...] 02/06/2019 11:33 EDT Electronically signed by Brittany [facility] Conversion Machine Staker Cerner at 01/24/2023 10:45 AM CDT documented in this encounter Plan of Treatment Not on file documented as of this encounter Visit Diagnoses Not on filedocumented in this encounter Care Teams Technology Instructor Relationship Specialty Start Date End Date Marielos Amaral, KAYE [address] [place] [id number] PCP - General Nurse Practitioner 08/18/23 documented as of this encounter
--- OUTSIDE RECORDS SUMMARY | 2025-05-16 11:11 | XMS_ITS | Encounter Summary ---
Author Organization [employer] ([place], [place], [place], [place]) Address [address] [place] [address] Care Team Providers Care Director Of Critical Care Name Role Phone AmaralMarielos roque KYAE Primary Care Provider Encounter Details Date Type Department Care Team (Late st Contact Info) Description 02/06/2019 Transcribed Document [facility] [place] [address] [place] [address] ProviderHaroldo MD [address] [place] [address] Social History Tobacco Use Types Packs/Day Years [...] on filedocumented in this encounter Care Teams Director Of Critical Care Relationship Specialty Start Date End Date Marielos Amaral, ORE SAMPLER [address] [place] [address] PCP - General Nurse Practitioner 08/18/23 documented as of this encounter
--- OUTSIDE RECORDS SUMMARY | 2025-05-16 11:11 | XMS_ITS | Encounter Summary ---
Author Organization [employer] ([place], [place], [place], [place]) Address [address] [place] [address] Care Team Providers Care Talent Development Analyst Name Role Phone Marielos Amaral KAYE Primary Care Provider Encounter Details Date Type Department Care Team (Late st Contact Info) Description 02/06/2019 Transcribed Document [facility] [place] [address] [place] [address] ProviderHaroldo MD [address] [place] [address] Social History Tobacco Use Types Packs/Day Years [...] on filedocumented in this encounter Care Teams Talent Development Analyst Relationship Specialty Start Date End Date Marielos Amaral, FURNACE ROOM SUPERVISOR [address] [address] PCP - General Nurse Practitioner 08/18/23 documented as of this encounter
--- OUTSIDE RECORDS SUMMARY | 2025-05-16 11:11 | XMS_ITS | Encounter Summary ---
Author Organization [employer] ([place], [place], [place], [place]) Address [address] [place] [address] Care Team Providers Care Kiln Cleaner Name Role Phone Marielos Amaral KAYE Primary Care Provider Encounter Details Date Type Department Care Team (Late st Contact Info) Description 02/06/2019 Transcribed Document [facility] [address] [place] [address] ProviderHaroldo MD [address] [place] [address] Social History Tobacco Use Types Packs/Day Years [...] version of the form. Electronically signed by Renetta Soto Conversion Health And Human Performance Professor Cerner at 01/24/2023 10:43 AM CDT documented in this encounter Plan of Treatment Not on file documented as of this encounter Visit Diagnoses Not on filedocumented in this encounter Care Teams Kiln Cleaner Relationship Specialty Start Date End Date Marielos Amaral, DIRECTOR MEDICAL SURGICAL [address] [place] [address] PCP - General Nurse Practitioner 08/18/23 documented as of this encounter
--- OUTSIDE RECORDS SUMMARY | 2025-05-16 11:11 | XMS_ITS | Encounter Summary ---
Author Organization [employer] ([place], [place], [place], [place]) Address [address] [place] [address] Care Team Providers Care Dupligraph Operator Name Role Phone Marielos Amaral KAYE Primary Care Provider Encounter Details Date Type Department Care Team (Late st Contact Info) Description 02/06/2019 Transcribed Document [facility] [place] [address] [place] [address] ProviderHaroldo MD [address] [place] [address] Social History Tobacco Use Types Packs/Day Years [...] Meds: Colace, Pepcid, Humalog, Metformin GI: LBM SPINNING MACHINE OPERATOR Skin: WNLs Ht: 69 Wt: 175# wt [...] BHATT RD, MAGDI - 02/08/2019 14:35 EDT Electronically signed by Renetta Soto Conversion Injection Molding Machine Tender [employer]ner at 01/24/2023 10:27 AM CDT documented in this encounter Plan of Treatment Not on file documented as of this encounter Visit Diagnoses Not on filedocumented in this encounter Care Teams Dupligraph Operator Relationship Specialty Start Date End Date Marielos Amaral APRN [address] [address] PCP - General Nurse Practitioner 08/18/23 documented as of this encounter
--- OUTSIDE RECORDS SUMMARY | 2025-05-16 11:11 | XMS_ITS | Encounter Summary ---
Author Organization [employer] ([place], [place], [place], [place]) Address [address] [place] [address] Care Team Providers Care Clinical Laboratory Aides Teacher Name Role Phone Marielos Amaral KAYE Primary Care Provider [phone] Encounter Details Date Type Department Care Team (Late st Contact Info) Description 02/06/2019 Transcribed Document [facility] [place] Family Medicine [address] [place] [address] ProviderHaroldo MD [address] [place] [address] Social History Tobacco Use Types Packs/Day Years [...] On: 02/06/2019 12:27 EDT by KELLY CROUCH, FACTORY LABORER General Information Visit Type, FACTORY LABORER : Initial evaluation Patient Orders : Speech [...] Admission Date/Time: 02/05/19 23:59:00 Medical Chart Reviewed, FACTORY LABORER : Yes Personal Devices : Personal Devices No Devices Recorded Assistive Devices : Assistive Devices No Devices Recorded Active Diagnoses : 02/05/2019 00:00 Ataxia, unspecified 02/05/2019 00:00 Weakness Therapy Diagnosis, FACTORY LABORER : oropharyngeal swallow seemingly within functional limits Previous Speech/Language Evaluations : N/A Previous Swallow Precautions : N/A Previous Cognitive Evaluations : N/A Diet/Intake Prior to Current Admission : Regular/thin Diet/Intake During Current Admission : Regular/thin Intubation Comment, FACTORY LABORER : No intubation on this admit Vital [...] 12:27 EDT General Status Patient Received Status, FACTORY LABORER : Sitting edge of bed Patient Left Status, FACTORY LABORER : Sitting edge of bed KELLY CROUCH [...] Oral Mechanism for Daily Living : Intact FACTORY LABORER Cough : Strong Facial Appearance: : Symmetrical [...] with thin. No further dysphagia services warranted, FACTORY LABORER will sign off. KELLY CROUCH FACTORY LABORER - 02/06/2019 12:27 EDT Swallow Recommendations Recommended Diet Type, SwRec : Regular Recommended Liquid Diet, SwRec : Thin Feeding Presentation Style, SwRec : No restrictions Swallow Position, SwRec : Upright 90 degrees Supervision Level w/Meals, SwRec : Independent, complete Recommended Med Present, SwRec : Whole, With thin liquid KELLY CROUCH FACTORY LABORER - 02/06/2019 12:27 EDT Therapy Indication Assessment FACTORY LABORER Indicated : No FACTORY LABORER Not Indicated : At prior level of function, No skilled services indicated KELLY CROUCH FACTORY LABORER - 02/06/2019 12:27 EDT Education Barriers To Learning : None evident Individuals Taught : Patient, Spouse Readiness to Learn : Cooperative Readiness to Learn : Explanation KELLY CROUCH SLP - 02/06/2019 12:27 EDT FACTORY LABORER Education Assessment Grid 1 Diet Recommendation : Verbalizes understanding Evaluation Results : Verbalizes understanding KELLY CROUCH, FACTORY LABORER - 02/06/2019 12:[address] Charg[facility] Evaluation Swallowing Function : 1 KELLY CROUCH, FACTORY LABORER - 02/06/2019 12:27 EDT Electronically signed by [facility], [facility] Conversion Tanyard Worker Cerner at 01/24/2023 10:42 AM CDT documented in this encounter Plan of Treatment Not on file documented as of this encounter Visit Diagnoses Not on filedocumented in this encounter Care Teams Clinical Laboratory Aides Teacher Relationship Specialty Start Date End Date Marielos Amaral, SINGE WINDER [address] [place] [address] PCP - General Nurse Practitioner 08/18/23 documented as of this encounter
--- OUTSIDE RECORDS SUMMARY | 2025-05-16 11:11 | XMS_ITS | Encounter Summary ---
Author Organization [employer] ([place], [place], [place], [place]) Address [address] [place] [address] Care Team Providers Care Onsite Case Manager Name Role Phone Marielos Amaral KAYE Primary Care Provider Encounter Details Date Type Department Care Team (Late st Contact Info) Description 02/06/2019 Transcribed Document [facility] [place] Family Medicine [address] [place] [address] ProviderHaroldo MD [address] [place] [address] Social History Tobacco Use Types Packs/Day Years [...] : Yes Outside Railing Position : Bilateral SANDI SERRANO OTR/Melvin Strong 02/08/2019 14:53 EDT Prior [...] SANDI SERRANO OTR/Melvin - 02/08/2019 14:53 EDT Emergency Medical Service Manager Goals, OT Grooming LTG Grid Goal #1 [...] SANDI SERRANO OTR/L - 02/08/2019 14:53 EDT [place] OT Charges OT Ther Activities Ea 15 Min : 1 OT Eval Low Complexity : 1 SANDI SERRANO OTR/L - 02/08/2019 14:53 EDT documented in this encounter Plan of Treatment Not on file documented as of this encounter Visit Diagnoses Not on filedocumented in this encounter Care Teams Onsite Case Manager Relationship Specialty Start Date End Date Marielos Amaral, VP CONSTRUCTION [address] [address] PCP - General Nurse Practitioner 08/18/23 documented as of this encounter
--- OUTSIDE RECORDS SUMMARY | 2025-05-16 11:11 | XMS_ITS | Encounter Summary ---
Author Organization [employer] ([place], [place], [place], [place]) Address [address] [place] [address] Care Team Providers Care Burner Shaft Name Role Phone Marielos Amaral APRN Primary Care Provider Encounter Details Date Type Department Care Team (Late st Contact Info) Description 02/07/2019 Transcribed Document [facility] Family Medicine [address] [place] [address] ProviderHaroldo MD [address] [place] [address] Social History Tobacco Use Types Packs/Day Years [...] Plan: [employer] G[employer]US HMO Policy Number: [id number] Authorization Number: PENDING IP Insurance Primary Name : [employer] Choice Authorization Status-Primary : Awaiting callback Authorized Service Begin Date-Primary : 02/05/2019 EDT Authorization Comments-Primary : setup case for IP on availity. faxed clinicals via Collections. Historical Authorization Comments-Primary : Comment 1: setup on availity obs approved. (GEGE JUÁREZ RN 02/06/2019 08:52) GEGE JUÁREZ RN - 02/07/2019 11:56 EDT Electronically signed by [facility] Conversion Digital Analytics Manager Cerner at 01/24/2023 10:27 AM CDT documented in this encounter Plan of Treatment Not on file documented as of this encounter Visit Diagnoses Not on filedocumented in this encounter Care Teams Burner Shaft Relationship Specialty Start Date End Date Marielos Amaral, PERSONAL INJURY LITIGATION PARALEGAL [address] [phone] PCP - General Nurse Practitioner 08/18/23 documented as of this encounter
--- OUTSIDE RECORDS SUMMARY | 2025-05-16 11:11 | XMS_ITS | Encounter Summary ---
Author Organization [employer] ([place], [place], [place], [place]) Address [address] [place] [address] Care Team Providers Care Sales Support Associate Name Role Phone Marielos Amaral APRN Primary Care Provider [phone] Encounter Details Date Type Department Care Team (Late st Contact Info) Description 02/07/2019 Transcribed Document [facility] Radiology [address] [phone] Fidencio Tolliver MD [address] [place] [address] [address] [place] [address] Social History Tobacco Use Types Packs/Day Years [...] risk factors. CODE STATUS: Full code CONSULTS: [facility] WORKUP / PROCEDURES: CT Head WO [...] approximately 50% stenosis of theproximal basilar artery. analytics leader show mild stenosis proximally. IMPRESSION: 1. 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 Anterior circulation intact.3. Mild bilateral STRATIGRAPHY TEACHER disease. This study was performed using dose [...] mg, Oral, BID Eliquis: 5 mg, Oral, [id number] Flomax: 0.4 mg, Oral, Daily MiraLax: 17 [...] Results Review Radiology Results (Last 48 hours) [id number] -- 02/05/2019 23:59 CT Head WO (02/05/2019 [...] approximately 50% stenosis of theproximal basilar artery. analytics leader show mild stenosis proximally. IMPRESSION: 1. 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 Anterior circulation intact.3. Mild bilateral STRATIGRAPHY TEACHER disease. This study was performed using dose [...] looking for possible rehabilitation placement will consult case specialist. Follow with neurology and cardiology recommendations. documented in this encounter Plan of Treatment Not on file documented as of this encounter Visit Diagnoses Not on filedocumented in this encounter Care Teams Sales Support Associate Relationship Specialty Start Date End Date Marielos Amaral, DRAFTER STRUCTURAL [address] [address] PCP - General Nurse Practitioner 08/18/23 documented as of this encounter
--- OUTSIDE RECORDS SUMMARY | 2025-05-16 11:12 | XMS_ITS | Encounter Summary ---
Author Organization [facility] ([place], [place], [place], [place]) Address [address] [place] [address] Care Team Providers Care Priest Name Role Phone Marielos Amaral APRN Primary Care Provider [phone] Encounter Details Date Type Department Care Team (Late st Contact Info) Description 01/20/2019 Transcribed Document [facility] Family Medicine [address] [place] [address] ProviderHaroldo MD [address] [place] [address] Social History Tobacco Use Types Packs/Day Years [...] ELINADEION /Sex: 1950 Male Med Rec #: [id number] Physician: PRINCESS DOCKERY MD-GAE Financial #: [id number] Pt. Type: O Room/Bed: N/18 Admit/Disch: 01/20/19 12:15:00 - Institution: [facility] [place] - Case Attendance Entry 1 Entry 2 Entry 3 Case Attendee PRINCESS DOCKERY, Ivone Humphreys, BRYANT BRADY, BYPRODUCTS SUPERVISOR KRIS Role Performed Surgeon/Proceduralist, Stencil Cutter Machine, First [employer]PRODUCTS SUPERVISOR/Nurse Case Investigator First Time In 01/20/19 14:08:00 01/20/19 14:08:00 [...] Ivone Sanders, LUIS 01/20/19 14:24:59 01/20/19 14:24:59 [facility] - Case Attendance Audit 01/20/19 14:24:59 Hand Bootmaker: [email or web address] Modifier: BICKNEA 1 <+> Time Out 1 <*> Procedure EGD w Radiofrequency Ablation 2 <+> Time Out 2 <*> Procedure EGD w Radiofrequency Ablation 3 <+> Time Out 3 <*> Procedure EGD w Radiofrequency Ablation 4 <+> Time Out 4 <*> Procedure EGD w Radiofrequency Ablation 5 <+> Time Out 5 <*> Procedure EGD w Radiofrequency Ablation 01/20/19 14:09:48 Hand Bootmaker: BICKNEA Modifier: BICKNEA <+> 1 Procedure 2 [...] Endo - Case Times Audit 01/20/19 14:24:56 Hand Bootmaker: BICKNEA Modifier: BICKNEA <+> 1 Out Room Time <+> 1 Stop Time 01/20/19 14:24:49 Hand Bootmaker: BICKNEA Modifier: BICKNEA <+> 1 Stop Time 01/20/19 14:13:29 Hand Bootmaker: BICKNEA Modifier: BICKNEA <+> 1 Start Time <+> 1 Anesthesia Ready [facility] - Cautery Entry 1 ESU Identification Cautery Type Other Cautery Type halo flex Comments ID Number [id number] ID Type Hospital Number Cautery Settings ESU Grounding Pad Last Modified By: Ivone Humphreys RN 01/20/19 14:27:00 [facility] - Cautery Audit 01/20/19 14:27:00 Hand Bootmaker: BICKNEA Modifier: BICKNEA <+> 1 ID Number [facility] - Delays Entry 1 Delay Reason Other Duration 0 Minute(s) Comment NO DELAY Last Modified By: Ivone Humphreys RN 01/20/19 14:09:30 [facility] - Departure from OR Entry 1 Integumentary Assessment Integumentary WDL Assessment WDL Transfer/Handoff Transfer to PACU Phase I Handoff Reported to EZEKIEL CARMICHAEL RN Post-op Transport Stretcher/Gurney Via Patient Transport Ivone Humphreys, LUIS, Accompanied by BRYANT FLOWERS CRNA Last Modified By: Ivnoe Humphreys RN 01/20/19 14:09:39 [facility] - [...] Yes Safety Precautions Followed Last Modified By: vIone Humphreys RN 01/20/19 14:09:52 E Endo - General Case Drinking Water Technician 1 Case Information OR Endo 03 E Case Level 1 Room Verified Yes Wound Class II - Clean-Contaminated Specialty SN Gastroenterology Anesthesia Type MAC ASA Class 3 Diagnosis Preop Diagnosis K22.719 BARRETTS ESOPHAGUS W/DYSPLASIA Postop Diagnosis hiatal hernia and barretts Last Modified By: Ivone Humphreys RN 01/20/19 14:16:45 [facility] - General Case Data Audit 01/20/19 14:16:45 Hand Bootmaker: [email or web address] Modifier: BICKNEA <+> 1 Postop Diagnosis [...] Entry 1 Medication/Irrigant Mucomyst 200mg/1ml 10ml - [id number] Time Administered 01/20/19 14:14:00 Route of Esophageal Wash Administration Dose Dose 10 Unit of Measure ml Volume mixed in 57ml of water Administered By PRINCESS DOCKERY MD-GAE Procedure Irrigation Last Modified By: Ivone Humphreys RN 01/20/19 14:24:46 [facility] - Medication Admin Audit 01/20/19 14:24:46 Hand Bootmaker: ZAC Modifier: BICKNEA 1 <*> Medication/Irrigant Mucomyst 200mg/1ml 10ml - [id number] 1 <*> Dose 5 [facility] - [...] Endo - Surgical Procedures Audit 01/20/19 14:25:03 Hand Bootmaker: BICKNEA Modifier: BICKNEA <+> 1 Stop 01/20/19 14:13:35 Hand Bootmaker: BICKNEA Modifier: BICKNEA <+> 1 Start 01/20/19 14:11:53 Hand Bootmaker: BICKNEA Modifier: BICKNEA 1 <*> Procedure EGD w Radiofrequency Ablation 1 <+> Specialty [facility] - Time Out Entry 1 Procedure [...] Signed By: Ivone Humphreys RN 01/20/19 14:27 documented in this encounter Plan of Treatment Not on file documented as of this encounter Visit Diagnoses Not on filedocumented in this encounter Care Teams Priest Relationship Specialty Start Date End Date Marielos Amaral APRN [address] [address] PCP - General Nurse Practitioner 08/18/23 documented as of this encounter
--- OUTSIDE RECORDS SUMMARY | 2025-05-16 11:12 | XMS_ITS | Encounter Summary ---
Author Organization [employer] ([place], [place], [place], [place]) Address [address] [place] [address] Care Team Providers Care Physician Asst Name Role Phone Marielos Amaral KAYE Primary Care Provider Encounter Details Date Type Department Care Team (Late st Contact Info) Description 10/16/2019 Transcribed Document [facility] Family Medicine [address] [place] [address] ProviderHaroldo MD [address] [place] [address] Social History Tobacco Use Types Packs/Day Years Used Date Smoking Tobacco: Never Assessed Sex and Gender Information Value Date Recorded Sex Assigned at Not on file Legal Sex Male 3:45 PM CDT Gender Identity Not on file Sexual Orientation Not on file documented as of this encounter Miscellaneous Notes * Cerjude Conversion Note - Haroldo ProviderMD - 10/16/2019 5:00 PM MANUFACTURING INDUSTRIAL ENGINEER Chart Check - Review Order Profile Entered On: 10/16/2019 17:15 EST Performed On: 10/16/2019 17:00 EST by Deysi Valdes RN Chart Check Powerplans Initiated/Discontinued as Appropriate : Yes All Active Orders Reviewed : Yes Deysi Valdes RN - 10/16/2019 17:15 EST Electronically signed by Brittany [facility] Conversion Enterprise Business Architect Cerner at 01/24/2023 10:45 AM CDT documented in this encounter Plan of Treatment Not on file documented as of this encounter Visit Diagnoses Not on filedocumented in this encounter Care Teams Physician Asst Relationship Specialty Start Date End Date Marielos Amaral, MASTER AT [employer] [address] [place] [address] PCP - General Nurse Practitioner 08/18/23 documented as of this encounter
--- OUTSIDE RECORDS SUMMARY | 2025-05-16 11:12 | XMS_ITS | Encounter Summary ---
Author Organization [employer] ([place], [place], [place], [place]) Address [address] [place] [address] Care Team Providers Care Director Of Psychology Name Role Phone Marielos Amaral KAYE Primary Care Provider [phone] Encounter Details Date Type Department Care Team (Late st Contact Info) Description 04/12/2020 Transcribed Document [facility] [place] [address] [place] [address] ProviderHaroldo MD [address] [place] [address] Social History Tobacco Use Types Packs/Day Years [...] Tomatoes and foods made with tomatoes. ? [place] or spicy foods. ? Chocolate and peppermint. ??? Do not drink alcohol. General instructions ??? Take tuki-ucz-owvhoom and prescription medicines only as told by [...] 12/12/2004 Document Revised: 01/18/2019 Document Reviewed: 01/18/2019 [employer] Interactive Patient Education ? 2020 [employer]. General Anesthesia, Adult, Care After This [...] activities are safe for you. ??? Take mjmd-wok-rmkojgk and prescription medicines only as told by [...] 12/29/2001 Document Revised: 05/08/2018 Document Reviewed: 05/08/2018 [employer] Interactive Patient Education ? 2020 [employer]. ESOPHAGOGASTRODUODENOSCOPY Care After Read the instructions outlined [...] in this encounter Care Teams Director Of Psychology Relationship Specialty Start Date End Date Marielos Amaral APRN [address] [address] PCP - General Nurse Practitioner 08/18/23 documented as of this encounter
--- OUTSIDE RECORDS SUMMARY | 2025-05-16 11:12 | XMS_ITS | Encounter Summary ---
Author Organization [employer] ([place], [place], [place], [place]) Address [address] [place] [address] Care Team Providers Care Lead Infrastructure Architect Name Role Phone Marielos Amaral APRN Primary Care Provider Encounter Details Date Type Department Care Team (Late st Contact Info) Description 10/17/2019 Transcribed Document [facility] Radiology [address] [place] [id number] Camilo Steven MD [address] [place] [address] Social History Tobacco Use Types Packs/Day Years [...] Shortness of Breath Eliquis: 5 mg, Oral, [id number] Flomax: 0.4 mg, Oral, Daily Metoprolol Succinate [...] 5 mg oral tablet: 1 Tab, Oral, N15FXwm, 60 Tab, 0 Refill(s) Toprol-XL 25 mg [...] tablet 5 mg = 1 Tab, Oral, K93EMim Eliquis 5 mg oral tablet 5 mg [...] mg tab 5 mg 1 Tab, Oral, H78ZDxs atorvastatin 40 mg tab 40 mg 1 [...] list: All Problems Angina / SNOMED CT 778035044 / Confirmed Coronary artery disease / SNOMED CT 9694384381 / Confirmed Diabetes mellitus type II / SNOMED CT 48765139 / Confirmed GERD - Gastro-esophageal reflux disease / SNOMED CT 0280242014 / Confirmed Heart failure / SNOMED CT 791254340 / Confirmed Heart murmur / SNOMED CT 176248065 / Confirmed History of obstructive sleep apnea / IMO 57048083 / Confirmed Hyperlipidemia / SNOMED CT 53466961 / Confirmed Hypertension / SNOMED CT 87526621 / Confirmed Impaired vision / SNOMED CT 39020299 / Confirmed Enlarged prostate / SNOMED CT 515870409 / Confirmed Migraine / SNOMED CT 14066428 / Confirmed Stented coronary artery / SNOMED CT 2094018245 / Confirmed, Active Problems (13) Angina Coronary [...] Normal strength, No deformity. Integumentary: Warm, Dry, [place], No rash. Neurologic: Alert, Oriented, No focal deficits. Psychiatric: Cooperative, Appropriate mood & affect. Results Review No qualifying data available Cardiac Markers (Current Encounter/Past 24 Hours) No Cardiac Marker Results Found (Past 24 Hours) Radiology Results (Last 48 hours) [id number] -- 10/14/2019 17:19 MRI Brain WO (10/15/2019 [...] and SVG to PDA) 02/10/[address] Kign LVEF-40% with moderate LV systolic dysfunction / [...] filedocumented in this encounter Care Teams Lead Infrastructure Architect Relationship Specialty Start Date End Date Marielos Amaral, ENGLISH LANGUAGE ARTS TEACHER [address] [place] [address] PCP - General Nurse Practitioner 08/18/23 documented as of this encounter
--- OUTSIDE RECORDS SUMMARY | 2025-05-16 11:12 | XMS_ITS | Encounter Summary ---
Author Organization [employer] ([place], [place], [place], [place]) Address [address] [place] [address] Care Team Providers Care Motors And Generators Inspector Name Role Phone Marielos Amaral APRN Primary Care Provider [phone] Encounter Details Date Type Department Care Team (Late st Contact Info) Description 10/17/2019 Transcribed Document [facility] Family Medicine [address] [place] [address] ProviderHaroldo MD [address] [place] [address] Social History Tobacco Use Types Packs/Day Years Used Date Smoking Tobacco: Never Assessed Sex and Gender Information Value Date Recorded Sex Assigned at Not on file Legal Sex Male 3:45 PM CDT Gender Identity Not on file Sexual Orientation Not on file documented as of this encounter Miscellaneous Notes * Cerner Conversion Note - Haroldo ProviderMD - 10/17/2019 1:30 PM PEELER OPERATOR [facility] [address] [place] [id number] DEION ANTOINE :1950 Visit Time:10/14/2019 Your Visit Summary Your Care Team Admitting Physician - PETRA TORRES MD-INT PHY, UNKNOWN FANY MCCRACKEN MD Attending Physician - PETRA TORRES MD-INT FANY MCCRACKEN MD Primary Care Physician - KATELYN MCKEON MD-[facility] Referring Physician - FANY MCCRACKEN MD Your [...] (carb controlled) Follow-Up Appointments Follow Up with [facility] Cardiology When Within 1 to 2 weeks Comments for stress test Follow Up with Follow up with primary care provider When Within 2 weeks Comments check TSH Follow Up with ALBERTO RIZVI When Within 6 weeks Comments Patient should call for a follow up appointment with [facility] Neurology. Where: [address] [place] [address] [facility] (1) Warfarin Instructions Notify Provider of [...] 12/26/2017 Document Revised: 12/26/2017 Document Reviewed: 12/26/2017 [employer]Page Interactive Patient Education ?? 2019 [employer]Page Inc. Stroke Prevention Some medical conditions and [...] lot or have excessive sleepiness. ??? Take jkpo-kfv-yirhjku and prescription medicines only as told by [...] more information For more information, visit: ??? [place] Stroke Association: www.strokeassociation.org ??? National Stroke Association: [...] 10/30/2005 Document Revised: 10/28/2017 Document Reviewed: 10/28/2017 [employer]Page Interactive Patient Education ?? 2019 [employer]Switch. nitroglycerin (oral/sublingual) ([place] troe GLI ser in [...] may report side effects to FDA at 2-423-AQZ-6742. What other drugs will affect nitroglycerin? Tell your doctor about all your current medicines, especially: ?? aspirin, heparin; ?? medicine used to treat blood clots; ?? blood pressure medication; or ?? ergot medicine--dihydroergotamine, ergotamine, ergonovine, methylergonovine. This list is not complete and many other drugs may affect nitroglycerin. This includes prescription and dann-vsb-llmforn medicines, vitamins, and herbal products. Not all [...] to ensure that the information provided by [employer]. ('[employer]') is accurate, up-to-date, and complete, but no guarantee is made to that effect. Drug information contained herein may be time sensitive. [employer] information has been compiled for use by healthcare practitioners and consumers in the [place] and therefore [employer] does not warrant that uses outside of the [place] are appropriate, unless specifically indicated otherwise. IMAGINATE - [employer] drug information does not endorse drugs, diagnose patients or recommend therapy. [employer] drug information is an informational resource designed [...] effective or appropriate for any given patient. [employer] does not assume any responsibility for any aspect of healthcare administered with the aid of information [employer] provides. The information contained herein is not intended to cover all possible uses, directions, precautions, warnings, drug interactions, allergic reactions, or adverse effects. If you have questions about the drugs you are taking, check with your doctor, nurse or pharmacist. Copyright 4639-4224 [employer]. Version: 15.01. Revision Date: 08/12/2019. levothyroxine (oral/injection) [...] may report side effects to FDA at 6-116-YVQ-1426. What other drugs will affect levothyroxine? Many [...] can affect levothyroxine. This includes prescription and ybar-vfs-cnptcsr medicines, vitamins, and herbal products. Not all [...] to ensure that the information provided by [employer] ('[employer]') is accurate, up-to-date, and complete, but no guarantee is made to that effect. Drug information contained herein may be time sensitive. [employer] information has been compiled for use by healthcare practitioners and consumers in the [place] and therefore [employer] does not warrant that uses outside of the [place] are appropriate, unless specifically indicated otherwise. IMAGINATE - [employer] drug information does not endorse drugs, diagnose patients or recommend therapy. IMAGINATE - [employer] drug information is an informational resource designed [...] effective or appropriate for any given patient. [employer] does not assume any responsibility for any aspect of healthcare administered with the aid of information [employer] provides. The information contained herein is not intended to cover all possible uses, directions, precautions, warnings, drug interactions, allergic reactions, or adverse effects. If you have questions about the drugs you are taking, check with your doctor, nurse or pharmacist. Copyright 0787-0139 [employer] Version: 13.04. Revision Date: 05/05/2019. Emergency Awareness [...] Assistance with quitting is available by contacting 0-760-YPLQ-NOW. This is a free resource providing counseling, [...] range between ( 0.0 and 7.0 ) Menard #: 0.73 K/uL -- Normal range between ( 0.16 and 1.00 ) Eos #: 0.12 x10(3)/uL -- Normal range between ( 0.00 and 0.80 ) Menard %: 8.7 % -- Normal range between [...] was given the opportunity to ask questions. Patient/Road Mechanic Name: Patient/Road Mechanic Signature: Relationship to Patient: Clinician/Hospital Road Mechanic Signature: Date: Electronically signed by Brittany, [facility] Conversion Door Frame Assembler Machine Cerner at 01/24/2023 10:35 AM CDT documented in this encounter Plan of Treatment Not on file documented as of this encounter Visit Diagnoses Not on filedocumented in this encounter Care Teams Motors And Generators Inspector Relationship Specialty Start Date End Date Marielos Amaral, PACKAGING DESIGNER [address] [place] [address] PCP - General Nurse Practitioner 08/18/23 documented as of this encounter
--- OUTSIDE RECORDS SUMMARY | 2025-05-16 11:12 | XMS_ITS | Encounter Summary ---
Author Organization [employer] ([place], [place], [place], [place]) Address [address] [place] [address] Care Team Providers Care Emergency Department Clinician Name Role Phone Marielos Amaral APRN Primary Care Provider Encounter Details Date Type Department Care Team (Late st Contact Info) Description 02/05/2019 Transcribed Document [facility] Family Medicine [facility] [place] [address] ProviderHaroldo MD [address] [place] [address] Social History Tobacco Use Types Packs/Day Years [...] to right arm and loss of balance mountain bike guide strength equal bilaterally decreased sensation to right [...] history: cardiac catheterization. hernia repair. tonsillectomy. Cholecystectomy; (55613). appendectomy. left arm surgery. coronary stents.. Family [...] EDT Height Source Stated Height Entry Format [place] Height/Length, MACEDONIAN (ft) 5 ft Height/Length MACEDONIAN 9 Inch CLINICALHEIGHT 175.26 cm [place] Body Weight 69.73 kg Weight Source, ED Critical estimated dosing weight Weight Entry Format [place] Weight Thai lb 175 lb CLINICALWEIGHT 79.55 kg Body [...] have the patient admitted to hospitalist. Neurology financial operations clerk was contacted who recommended CTA brain perfusion [...] ED Adult Triage: ED Clinical Reconciliation: ED community board member: Lipase Level: Peripheral IV Insertion: Troponin I Ultra: . Electrocardiogram: Time 02/05/2019 21:53:00, rate 79, normal sinus rhythm, No ST changes, no ectopy, normal DE & QRS intervals, EP Interp, Normal sinus [...] % 20.5 % Lymph # 2.34 x10(3)/uL Mower % 8.7 % Mower # 0.99 K/uL Eos % 1.0 % Eos # 0.12 x10(3)/uL Baso % 0.4 % Baso # 0.05 x10(3)/uL Slide Review No IG# 0.09 x10(3)/uL HI IG% 0.80 % HI Alcohol <3 mg/dL NA %Alcohol <.00 NA . Radiology results: Radiology Results (Last 48 hours) [id number] -- 02/05/2019 23:59 CT Head WO (02/05/2019 [...] instructions. Notes: I certify that the Physician Air Conditioning Installer Supervisor performed the services as delegated. I agree with the assessment, treatment plan and disposition of the patient as recorded by the Physician Air Conditioning Installer Supervisor, Dr. Kaur. Electronically signed by Renetta Soto Conversion Lens And Frames Prescription Clerk [employer] at 01/24/2023 10:36 AM CDT documented in this encounter Plan of Treatment Not on file documented as of this encounter Visit Diagnoses Not on filedocumented in this encounter Care Teams Emergency Department Clinician Relationship Specialty Start Date End Date Marielos Amaral, NECK PINNER [address] [place] [address] PCP - General Nurse Practitioner 08/18/23 documented as of this encounter
--- OUTSIDE RECORDS SUMMARY | 2025-05-16 11:12 | XMS_ITS | Encounter Summary ---
Author Organization [employer] ([place], [place], [place], [place]) Address [address] [place] [address] Care Team Providers Care Elevator Dispatcher Name Role Phone Marielos Amaral MIXING PLACE SUPERVISOR Primary Care Provider Encounter Details Date Type Department Care Team (Late st Contact Info) Description 01/20/2019 Transcribed Document [facility] Family Medicine [address] [place] [address] ProviderHaroldo MD [address] [place] [address] Social History Tobacco Use Types Packs/Day Years Used Date Smoking Tobacco: Never Assessed Sex and Gender Information Value Date Recorded Sex Assigned at Not on file Legal Sex Male 3:45 PM CDT Gender Identity Not on file Sexual Orientation Not on file documented as of this encounter Miscellaneous Notes * Cerner Conversion Note - Haroldo ProviderMD - 01/20/2019 2:38 PM CDT [address] [address] ELINA ZACKARY COOK :1950 Visit [...] up with Dr Lopez as needed Where: [address] [place] [address]- Medications What How Much When Instructions Next [...] Document Reviewed: 12/01/2012 ExitCare?? Patient Information ??2015 Vend. This information is not intended to replace [...] including vitamins, herbs, eye drops, creams, and azjg-cqy-oimvvsq medicines. ???Previous problems you or members of [...] Document Reviewed: 08/25/2013 ExitCare?? Patient Information ??2015 Vend. This information is not intended to replace [...] including vitamins, herbs, eye drops, creams, and wbmy-tml-xpnsqsf medicines. ??? Previous problems you or members [...] 07/13/2014 Document Revised: 10/13/2015 Document Reviewed: 07/13/2014 [employer] Interactive Patient Education ?? 2017 [employer]. Emergency Awareness and Preventative Care STROKE is [...] Assistance with quitting is available by contacting 4-369-ITBH-NOW. This is a free resource providing counseling, [...] Be sure to sign up for the [facility] patient portal, which gives you 28/04 access to your medical information ??? including these discharge instructions ??? using your computer, smartphone, or tablet. Just go to [employer] to get started. Questions? Call . Test Results Laboratory or Other Results This Visit (last charted value for your 01/20/2019 visit) General Chemistry 01/20/19 12:42:00 Glucose POC2: 182 mg/dL -- Normal range between ( 70 and 110 ) Patient Name:ZACKARY ANTOINE I have received this information and was given the opportunity to ask questions. Patient/Ad Clerk Name: Patient/Ad Clerk Signature: Relationship to Patient: Clinician/Hospital Ad Clerk Signature: Date: Electronically signed by Brittany, Renetta Conversion Teacher Education Director [employer]ak at 01/24/2023 10:28 AM CDT documented in this encounter Plan of Treatment Not on file documented as of this encounter Visit Diagnoses Not on filedocumented in this encounter Care Teams Elevator Dispatcher Relationship Specialty Start Date End Date Marielos Amaral, MIXING PLACE SUPERVISOR [address] [place] [id number] PCP - General Nurse Practitioner 08/18/23 documented as of this encounter
--- OUTSIDE RECORDS SUMMARY | 2025-05-16 11:12 | XMS_ITS | Encounter Summary ---
Author Organization [employer] ([place], [place], [place], [place]) Address [address] [place] [address] Care Team Providers Care Assistant Professor Of Philosophy Name Role Phone Marielos Amaral KAYE Primary Care Provider [phone] Encounter Details Date Type Department Care Team (Late st Contact Info) Description 10/17/[address] [facility] [place] [address] [place] [address] ProviderHaroldo MD [address] [place] [address] Social History Tobacco Use Types Packs/Day Years Used Date Smoking Tobacco: Never Assessed Sex and Gender Information Value Date Recorded Sex Assigned at Not on file Legal Sex Male 3:45 PM CDT Gender Identity Not on file Sexual Orientation Not on file documented as of this encounter Miscellaneous Notes * Cerner Conversion Note - Haroldo ProviderMD - 10/17/2019 5:00 AM SPINNERET PERSON Chart Check - Review Order Profile Entered On: 10/17/2019 4:54 EST Performed On: 10/17/2019 5:00 EST by Vanessa Blake RN Chart Check Powerplans Initiated/Discontinued as Appropriate : Yes All Active Orders Reviewed : Yes Vanessa Blake RN - 10/17/2019 4:54 EST Electronically signed by Brittany [facility] Conversion Gallery Intern Cerner at 01/24/2023 10:33 AM CDT documented in this encounter Plan of Treatment Not on file documented as of this encounter Visit Diagnoses Not on filedocumented in this encounter Care Teams Assistant Professor Of Philosophy Relationship Specialty Start Date End Date Marielos Amaral, COOKING INSTRUCTOR [address] [place] [address] PCP - General Nurse Practitioner 08/18/23 documented as of this encounter
--- OUTSIDE RECORDS SUMMARY | 2025-05-16 11:12 | XMS_ITS | Encounter Summary ---
Author Organization [employer] ([place], [place], [place], [place]) Address [address] [place] [address] Care Team Providers Care Car Construction Superintendent Name Role Phone Marielos Amaral APRN Primary Care Provider Encounter Details Date Type Department Care Team (Late st Contact Info) Description 10/17/2019 Transcribed Document [facility] Family Medicine [address] [place] [address] ProviderHaroldo MD [address] [place] [address] Social History Tobacco Use Types Packs/Day Years Used Date Smoking Tobacco: Never Assessed Sex and Gender Information Value Date Recorded Sex Assigned at Not on file Legal Sex Male 3:45 PM CDT Gender Identity Not on file Sexual Orientation Not on file documented as of this encounter Miscellaneous Notes * Cerner Conversion Note - Haroldo ProviderMD - 10/17/2019 3:39 PM FLOATLIGHT POWDER MIXER Patient: ZACKARY ANTOINE Age: 68 years Sex: Male : 1950 Associated Diagnoses: None Author: MAGED FORD MD-INT Subjective ADMIT DATE: 10/14/2018 DISCHARGE DATE: 10/17/2018 PCP: dr. Boubacar Ball ADMIT MD: dr. Lopes CONSULT TEAMS: [facility] Cardiology [facility] Neurology REASON FOR ADMIT: 68-year-old male with [...] (OCT 14) Radiology Results (Last 48 hours) [id number] -- 10/14/2019 17:19 CT Head WO (10/15/2019 [...] Daily FOLLOW UP: pcp in 2 weeks [facility] Cardiology in 1-[address] Krish Bose in 6 weeks I spent over 30 min today CC1: dr. Boubacar Ball CC2: [facility] Cardiology CC3: dr. Rutherford Electronically signed by Brittany [facility] Conversion Comb Tender Kodak at 01/24/2023 10:35 AM CDT documented in this encounter Plan of Treatment Not on file documented as of this encounter Visit Diagnoses Not on filedocumented in this encounter Care Teams Car Construction Superintendent Relationship Specialty Start Date End Date Marielos Amaral, MIXOLOGIST [address] [place] [address] PCP - General Nurse Practitioner 08/18/23 documented as of this encounter
--- OUTSIDE RECORDS SUMMARY | 2025-05-16 11:12 | XMS_ITS | Encounter Summary ---
Author Organization [employer] ([place], [place], [place], [place]) Address [address] [place] [address] Care Team Providers Care Focusing Machine Operator Name Role Phone Marielos Amaral KAYE Primary Care Provider [phone] Encounter Details Date Type Department Care Team (Late st Contact Info) Description 10/18/2019 Transcribed Document [facility] [place] [address] [place] [address] ProviderHaroldo MD [address] [place] [address] Social History Tobacco Use Types Packs/Day Years Used Date Smoking Tobacco: Never Assessed Sex and Gender Information Value Date Recorded Sex Assigned at Not on file Legal Sex Male 3:45 PM CDT Gender Identity Not on file Sexual Orientation Not on file documented as of this encounter Miscellaneous Notes * Cerner Conversion Note - Haroldo ProviderMD - 10/18/2019 8:56 AM PRESSURIZER Discharge Summary, PT Entered On: 10/18/2019 8:57 EST Performed On: 10/18/2019 8:56 EST by JACQUELYN KIM, PT Discharge Summary Reason for Discharge : Discharged from hospital Discharged to, Therapy : Home, with family care Discharge Summary Comment, PT : As of 10/17/2019: Patient was modified independent itrvth-jxe-iozxu and ambulated 300' no AD with supervision [...] JACQUELYN KIM, PT - 10/18/2019 8:56 EST Therapist'S Assistant Goals Ambulation LTG Grid Goal #1 Device : None Distance : 400' Assist : Independent, complete Date to Meet : 10/29/2019 EST Goal Status : Not met JACQUELYN KIM, PT - 10/18/2019 8:56 EST Electronically signed by [facility], [facility] Conversion Manager Respiratory Care Cerner at 01/24/2023 10:41 AM CDT documented in this encounter Plan of Treatment Not on file documented as of this encounter Visit Diagnoses Not on filedocumented in this encounter Care Teams Focusing Machine Operator Relationship Specialty Start Date End Date Marielos Amaral APRN [address] [address] PCP - General Nurse Practitioner 08/18/23 documented as of this encounter
--- OUTSIDE RECORDS SUMMARY | 2025-05-16 11:12 | XMS_ITS | Encounter Summary ---
Author Organization [email or web address] ([place], [place], [place], [place]) Address [address] [place] [address] Care Team Providers Care Turntable Worker Name Role Phone Marielos Amaral KAYE Primary Care Provider Encounter Details Date Type Department Care Team (Late st Contact Info) Description 02/06/2019 Transcribed Document [facility] Family Medicine [address] [place] [address] ProviderHaroldo MD [address] [place] [address] Social History Tobacco Use Types Packs/Day Years [...] Framework : Not integrated, provides little strength/resource Uatsdin Preference : No protestant JORDYN HART - 02/06/2019 14:15 EDT Spiritual Assessment Patient's Community/Relationship : Strength in patient's life Supportive/Healthy Relationships : Yes Supportive Uatsdin Community : No Spiritual Assessment Comment/Summary Points [...] 02/06/2019 14:15 EDT Electronically signed by Brittany [facility] Conversion Security Chief Museum Cerner at 01/24/2023 10:19 AM CDT documented in this encounter Plan of Treatment Not on file documented as of this encounter Visit Diagnoses Not on filedocumented in this encounter Care Teams Turntable Worker Relationship Specialty Start Date End Date Marielos Amaral, KAYE [address] [place] [address] PCP - General Nurse Practitioner 08/18/23 documented as of this encounter
--- OUTSIDE RECORDS SUMMARY | 2025-05-16 11:12 | XMS_ITS | Encounter Summary ---
Author Organization [employer] ([place], [place], [place], [place]) Address [address] [place] [address] Care Team Providers Care Fish Grader Name Role Phone Marielos Amaral APRN Primary Care Provider [phone] Encounter Details Date Type Department Care Team (Late st Contact Info) Description 04/12/2020 Transcribed Document [facility] Family Medicine [address] [place] [address] ProviderHaroldo MD [address] [place] [address] Social History Tobacco Use Types Packs/Day Years [...] JOYCE BrittB./Sex: 1950 Male Med Rec #: [id number] Physician: PRINCESS DOCKERY MD-GAE Financial #: [id number] Pt. Type: E Room/Bed: [facility] Admit/Disch: 04/12/20 06:32:00 - Institution: [facility] PACU Case Times Entry 1 In PACU I 04/12/20 07:53:00 Ready for PACU 04/12/20 08:26:00 Discharge Discharge from PACU 04/12/20 08:29:00 I [facility] PACU Case Times Audit 04/12/20 08:30:01 Bump Grader Operator: [id number] Modifier: [id number] <+> 1 Ready for PACU Discharge <+> 1 Discharge from PACU I Finalized By: Roxana Brady, RN Document Signatures Signed By: Roxana Brady, LUIS 04/12/20 08:30 documented in this encounter Plan of Treatment Not on file documented as of this encounter Visit Diagnoses Not on filedocumented in this encounter Care Teams Fish Grader Relationship Specialty Start Date End Date Marielos Amaral, DESIGNATED BROKER [address] [place] [phone] PCP - General Nurse Practitioner 08/18/23 documented as of this encounter
--- OUTSIDE RECORDS SUMMARY | 2025-05-16 11:12 | XMS_ITS | Encounter Summary ---
Author Organization [employer] ([place], [place], [place], [place]) Address [address] [place] [address] Care Team Providers Care Marketing Community Liaison Name Role Phone Marielos Amaral KAYE Primary Care Provider Encounter Details Date Type Department Care Team (Late st Contact Info) Description 10/17/2019 Transcribed Document [facility] Family Medicine [address] [place] [address] ProviderHaroldo MD [address] [place] [address] Social History Tobacco Use Types Packs/Day Years Used Date Smoking Tobacco: Never Assessed Sex and Gender Information Value Date Recorded Sex Assigned at Not on file Legal Sex Male 3:45 PM CDT Gender Identity Not on file Sexual Orientation Not on file documented as of this encounter Miscellaneous Notes * Cerner Conversion Note - Historical ProviderMD - 10/17/2019 6:15 AM HERBARIUM CURATOR Height and Weight, Routine Entered On: 10/17/2019 6:15 EST Performed On: 10/17/2019 6:15 EST by Emily Rich [facility] Height and Weight, Routine Routine Weight Source : Bed scale Routine Weight Entry Format : Metric Routine Weight, Kilograms : 85.1 kg(Converted to: 187 lb 10 oz) Routine Weight Calculation : 85.1 kg Height Source : Stated Height Entry Format : [place] Height, Feet : 5 ft Height, Inches [...] on filedocumented in this encounter Care Teams Marketing Community Liaison Relationship Specialty Start Date End Date Marielos Amaral, IRRIGATION FLUME LAYER [address] [place] [phone] PCP - General Nurse Practitioner 08/18/23 documented as of this encounter
--- OUTSIDE RECORDS SUMMARY | 2025-05-16 11:12 | XMS_ITS | Encounter Summary ---
Author Organization [employer] ([place], [place], [place], [place]) Address [address] [place] [address] Care Team Providers Care Conveyor Tender Concrete Mixing Plant Name Role Phone Marielos Amaral APRN Primary Care Provider [phone] Encounter Details Date Type Department Care Team (Late st Contact Info) Description 04/12/2020 Transcribed Document [facility] [place] Medicine [address] [place] [address] ProviderHaroldo MD [address] [place] [address] Social History Tobacco Use Types Packs/Day Years [...] MD-GAE Finalized Date/Time: 04/12/20 07:32:11 Pt. Name: ELINA DEION JOYCE BrittB./Sex: 1950 Male Med Rec #: [id number] Physician: PRINCESS DOCKERY MD-GAE Financial #: [id number] Pt. Type: E Room/Bed: [facility]/ Admit/Disch: 04/12/20 06:32:00 - Institution: [facility] PreOp Case Times Entry 1 In Preop 04/12/20 06:53:00 Ready for Holding n/a Room Patient Ready for n/a Surgery Patient Out of Preop 04/12/20 07:20:00 Patient Out of n/a Holding Room [facility] PreOp Case Times Audit 04/12/20 07:32:09 Technology Instructor: [id number] Modifier: [id number] <+> 1 Patient Out of Preop Finalized By: Roxana Brady, RN Document Signatures Signed By: Roxana Brady, LUIS 04/12/20 07:32 documented in this encounter Plan of Treatment Not on file documented as of this encounter Visit Diagnoses Not on filedocumented in this encounter Care Teams Conveyor Tender Concrete Mixing Plant Relationship Specialty Start Date End Date Amaral Marielos, REGIONAL OPERATIONS DIRECTOR [address] [address] PCP - General Nurse Practitioner 08/18/23 documented as of this encounter
--- OUTSIDE RECORDS SUMMARY | 2025-05-16 11:12 | XMS_ITS | Encounter Summary ---
Author Organization [employer] ([place], [place], [place], [place]) Address [address] [place] [address] Care Team Providers Care Family Specialist Name Role Phone Marielos Amaral KAYE Primary Care Provider Encounter Details Date Type Department Care Team (Late st Contact Info) Description 10/16/2019 Transcribed Document [facility] Family Medicine [address] [place] [address] ProviderHaroldo MD [address] [place] [address] Social History Tobacco Use Types Packs/Day Years Used Date Smoking Tobacco: Never Assessed Sex and Gender Information Value Date Recorded Sex Assigned at Not on file Legal Sex Male 3:45 PM CDT Gender Identity Not on file Sexual Orientation Not on file documented as of this encounter Miscellaneous Notes * Cerner Conversion Note - Haroldo ProviderMD - 10/16/2019 5:00 AM WATER RESOURCES PROGRAM DIRECTOR Chart Check - Review Order Profile Entered On: 10/16/2019 5:38 EST Performed On: 10/16/2019 5:00 EST by Vanessa Blake RN Chart Check Powerplans Initiated/Discontinued as Appropriate : Yes All Active Orders Reviewed : Yes Vanessa Blake RN - 10/16/2019 5:38 EST Electronically signed by Brittany [facility] Conversion Technology Resource Teacher Cerner at 01/24/2023 10:29 AM CDT documented in this encounter Plan of Treatment Not on file documented as of this encounter Visit Diagnoses Not on filedocumented in this encounter Care Teams Family Specialist Relationship Specialty Start Date End Date Marielos Amaral, BEEHIVE KILN SUPERVISOR [address] [place] [address] PCP - General Nurse Practitioner 08/18/23 documented as of this encounter
--- OUTSIDE RECORDS SUMMARY | 2025-05-16 11:12 | XMS_ITS | Encounter Summary ---
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 Biopsies at that time [...] Dr. Axel Hamlin Electronically signed by Brittany [facility] Conversion Blending Supervisor Cerner at 01/24/2023 10:38 AM CDT documented in this encounter Plan of Treatment Not on file documented as of this encounter Visit Diagnoses Not on filedocumented in this encounter Care Teams Inventory Control Analyst Relationship Specialty Start Date End Date Marielos Amaral APRN [address] [address] PCP - General Nurse Practitioner 08/18/23 documented as of this encounter
--- OUTSIDE RECORDS SUMMARY | 2025-05-16 11:12 | XMS_ITS | Encounter Summary ---
Author Organization [employer] ([place], [place], [place], [place]) Address [address] [place] [address] Care Team Providers Care Director Of Infection Control Name Role Phone Marielos Amaral KAYE Primary Care Provider [phone] Encounter Details Date Type Department Care Team (Late st Contact Info) Description 01/20/2019 Transcribed Document [facility] Family Medicine [address] [place] [address] ProviderHaroldo MD [address] [place] [address] Social History Tobacco Use Types Packs/Day Years [...] Source : Stated Height Entry Format : [place] Height, Feet : 5 ft(Converted to: 152 cm, 60 Inch) Height, Inches : 9 Inch(Converted to: 0 ft 9 Inch, 22.86 cm) Clinical Height : 175.26 cm Weight Source : Standing scale Weight Entry Format : [place] Clinical Dosing Weight : 78.86 kg Weight, Pounds : 173 lb Weight, Ounces : 8 oz Body Surface Area (BSA) : 1.95 m2 Body Mass Index : 25.7 kg/m2 (HI) [place] Body Weight : 70 kg CORRINA QUINTANA [...] Info Preferred Name : Clint Support Person/Patient Medical Affairs Leader : Yes Support Person/Pt Rep Name : Enriqueta - Contact Password : peanut Support Person/Pt Rep Contact Information : [phone] Want Family/Rep/Phys Notified of Admit : No Emergency Contact #1 : Enriqueta Emergency Contact #1 Emergency Contact #1 Relationship : spouse Emergency Contact #2 : none Emergency Contact #2 Phone Number : none Emergency Contact #2 Relationship : none Chief Complaint : GERD Information Obtained From : Patient Primary Language : Maldivian Communication Barrier : None CORRINA QUINTANA RN [...] Scale Risk Level : 0-24 Low Risk [place] Fall Interventions : Adequate lighting, Assistive devices [...] : Common streetwear Clothing Disposition : Bedside CRORINA QUINTANA RN - 01/20/2019 12:33 EDT documented in this encounter Plan of Treatment Not on file documented as of this encounter Visit Diagnoses Not on filedocumented in this encounter Care Teams Director Of Infection Control Relationship Specialty Start Date End Date Marielos Amaral, KAYE [address] [place] [address] PCP - General Nurse Practitioner 08/18/23 documented as of this encounter
--- OUTSIDE RECORDS SUMMARY | 2025-05-16 11:12 | XMS_ITS | Encounter Summary ---
Author Organization [employer] ([place], [place], [place], [place]) Address [address] [place] [address] Care Team Providers Care Senior Software Engineering Manager Name Role Phone Marielos Amaral KAYE Primary Care Provider [phone] Encounter Details Date Type Department Care Team (Late st Contact Info) Description 10/17/2019 Transcribed Document [facility] Family Medicine [address] [place] [address] ProviderHaroldo MD [address] [place] [address] Social History Tobacco Use Types Packs/Day Years Used Date Smoking Tobacco: Never Assessed Sex and Gender Information Value Date Recorded Sex Assigned at Not on file Legal Sex Male 3:45 PM CDT Gender Identity Not on file Sexual Orientation Not on file documented as of this encounter Miscellaneous Notes * Cerner Conversion Note - Haroldo ProviderMD - 10/17/2019 12:15 PM CLASS C DRIVER Patient Education Materials Follows: Hospital Discharge After [...] 12/26/2017 Document Revised: 12/26/2017 Document Reviewed: 12/26/2017 [employer] Interactive Patient Education ? 2019 [employer] Stroke Prevention Some medical conditions and [...] lot or have excessive sleepiness. ??? Take eyiu-emb-ogqddlo and prescription medicines only as told by [...] more information For more information, visit: ??? [place] Stroke Association: www.strokeassociation.org ??? National Stroke Association: [...] 10/28/2017 Elsevier Interactive Patient Education ? 2019 [employer] documented in this encounter Plan of Treatment Not on file documented as of this encounter Visit Diagnoses Not on filedocumented in this encounter Care Teams Senior Software Engineering Manager Relationship Specialty Start Date End Date Marielos Amaral APRN [address] [address] PCP - General Nurse Practitioner 08/18/23 documented as of this encounter
--- OUTSIDE RECORDS SUMMARY | 2025-05-16 11:12 | XMS_ITS | Encounter Summary ---
Author Organization [employer] ([place], [place], [place], [place]) Address [address] [place] [address] Care Team Providers Care Casing Man Name Role Phone Marielos Amaral KAYE Primary Care Provider Encounter Details Date Type Department Care Team (Late st Contact Info) Description 10/17/2019 Transcribed Document [facility] Family Medicine [address] [place] [address] ProviderHaroldo MD [address] [place] [address] Social History Tobacco Use Types Packs/Day Years Used Date Smoking Tobacco: Never Assessed Sex and Gender Information Value Date Recorded Sex Assigned at Not on file Legal Sex Male 3:45 PM CDT Gender Identity Not on file Sexual Orientation Not on file documented as of this encounter Miscellaneous Notes * Cerner Conversion Note - Haroldo ProviderMD - 10/17/2019 2:00 AM EQUIPMENT MAINTENANCE SUPERINTENDENT Chief Revenue Officer Details Entered On: 10/17/2019 4:54 EST Performed [...] 10/17/2019 4:53 EST Electronically signed by Brittany [facility] Conversion Expedition Supervisor Cerner at 01/24/2023 10:28 AM CDT documented in this encounter Plan of Treatment Not on file documented as of this encounter Visit Diagnoses Not on filedocumented in this encounter Care Teams Casing Man Relationship Specialty Start Date End Date Marielos Amaral, KAYE [address] [place] [phone] PCP - General Nurse Practitioner 08/18/23 documented as of this encounter
--- OUTSIDE RECORDS SUMMARY | 2025-05-16 11:12 | XMS_ITS | Encounter Summary ---
Author Organization [employer] ([place], [place], [place], [place]) Address [address] [place] [address] Care Team Providers Care Academic Associate Name Role Phone AmaralMarielos roque KAYE Primary Care Provider [phone] Encounter Details Date Type Department Care Team (Late st Contact Info) Description 10/16/2019 Transcribed Document [facility] Family Medicine [address] [place] [address] ProviderHaroldo MD [address] [place] [address] Social History Tobacco Use Types Packs/Day Years Used Date Smoking Tobacco: Never Assessed Sex and Gender Information Value Date Recorded Sex Assigned at Not on file Legal Sex Male 3:45 PM CDT Gender Identity Not on file Sexual Orientation Not on file documented as of this encounter Miscellaneous Notes * Cerner Conversion Note - Haroldo Warren MD - 10/16/2019 12:58 PM WATCH TRAIN INSPECTOR Discharge Instructions Entered On: 10/16/2019 12:59 EST [...] on filedocumented in this encounter Care Teams Academic Associate Relationship Specialty Start Date End Date Marielos Amaral APRN [address] [address] PCP - General Nurse Practitioner 08/18/23 documented as of this encounter
--- OUTSIDE RECORDS SUMMARY | 2025-05-16 11:12 | XMS_ITS | Encounter Summary ---
Author Organization [employer] ([place], [place], [place], [place]) Address [address] [place] [address] Care Team Providers Care Graphite Disk Assembler Name Role Phone Marielos Amaral APRN Primary Care Provider Encounter Details Date Type Department Care Team (Late st Contact Info) Description 10/17/2019 Transcribed Document [facility] Family Medicine [address] [place] [address] ProviderHaroldo MD [address] [place] [address] Social History Tobacco Use Types Packs/Day Years Used Date Smoking Tobacco: Never Assessed Sex and Gender Information Value Date Recorded Sex Assigned at Not on file Legal Sex Male 3:45 PM CDT Gender Identity Not on file Sexual Orientation Not on file documented as of this encounter Miscellaneous Notes * Cerner Conversion Note - Haroldo ProviderMD - 10/17/2019 1:46 PM PHOTOVOLTAIC TECHNICIAN [facility] [address] [place] [id number] DEION ANTOINE :1950 Visit Time:10/14/2019 Your Visit Summary Your Care Team Admitting Physician - PETRA TORRES MD-INT PHY, UNKNOWN FANY MCCRACKEN MD Attending Physician - PETRA TORRES MD-INT FANY MCCRACKEN MD Primary Care Physician - [facility] Referring Physician - FANY MCCRACKEN MD [...] (carb controlled) Follow-Up Appointments Follow Up with [facility] Cardiology When Within 1 to 2 weeks Comments for stress test Follow Up with Follow up with primary care provider When Within 2 weeks Comments check TSH Follow Up with ALBERTO RIZVI When Within 6 weeks Comments Patient should call for a follow up appointment with [facility] Neurology. Where: [email or web address] [place] [phone] [facility] (1) Warfarin Instructions Indication for Warfarin Anticoagulation: [...] 12/26/2017 Document Revised: 12/26/2017 Document Reviewed: 12/26/2017 [employer] Interactive Patient Education ?? 2019 [employer]. Stroke Prevention Some medical conditions and [...] lot or have excessive sleepiness. ??? Take xooi-lvk-gwthejh and prescription medicines only as told by [...] more information For more information, visit: ??? [place] Stroke Association: www.strokeassociation.org ??? National Stroke Association: [...] 10/30/2005 Document Revised: 10/28/2017 Document Reviewed: 10/28/2017 [employer] Patient Education ?? 2019 Xi3. nitroglycerin (oral/sublingual) ([place] troe GLI ser in [...] may report side effects to FDA at 3-012-VJB-8871. What other drugs will affect nitroglycerin? Tell your doctor about all your current medicines, especially: ?? aspirin, heparin; ?? medicine used to treat blood clots; ?? blood pressure medication; or ?? ergot medicine--dihydroergotamine, ergotamine, ergonovine, methylergonovine. This list is not complete and many other drugs may affect nitroglycerin. This includes prescription and jtdl-epz-mhmenes medicines, vitamins, and herbal products. Not all [...] to ensure that the information provided by [employer]. ('Multum') is accurate, up-to-date, and complete, but no guarantee is made to that effect. Drug information contained herein may be time sensitive. [employer] information has been compiled for use by healthcare practitioners and consumers in the [place] and therefore [employer] does not warrant that uses outside of the [place] are appropriate, unless specifically indicated otherwise. [employer]'s drug information does not endorse drugs, diagnose patients or recommend therapy. [employer] drug information is an informational resource designed [...] effective or appropriate for any given patient. [employer] does not assume any responsibility for any aspect of healthcare administered with the aid of information [employer] provides. The information contained herein is not intended to cover all possible uses, directions, precautions, warnings, drug interactions, allergic reactions, or adverse effects. If you have questions about the drugs you are taking, check with your doctor, nurse or pharmacist. Copyright 7878-3668 [employer]. Version: 15.01. Revision Date: 08/12/2019. levothyroxine (oral/injection) [...] may report side effects to FDA at 9-894-WGA-4073. What other drugs will affect levothyroxine? Many [...] can affect levothyroxine. This includes prescription and hgus-bfv-vxesjwn medicines, vitamins, and herbal products. Not all [...] to ensure that the information provided by [employer]. ('ZenDayum') is accurate, up-to-date, and complete, but no guarantee is made to that effect. Drug information contained herein may be time sensitive. Gr[employer]per information has been compiled for use by healthcare practitioners and consumers in the [place] and therefore [employer] does not warrant that uses outside of the [place] are appropriate, unless specifically indicated otherwise. [employer] drug information does not endorse drugs, diagnose patients or recommend therapy. [employer] drug information is an informational resource designed [...] effective or appropriate for any given patient. [employer] does not assume any responsibility for any aspect of healthcare administered with the aid of information [employer] provides. The information contained herein is not intended to cover all possible uses, directions, precautions, warnings, drug interactions, allergic reactions, or adverse effects. If you have questions about the drugs you are taking, check with your doctor, nurse or pharmacist. Copyright 7943-5783 [employer]. Version: 13.04. Revision Date: 05/05/2019. Emergency Awareness [...] Assistance with quitting is available by contacting 3-231-UWJINOW. This is a free resource providing counseling, support, and referral. Or you may contact your personal physician. [employer] Suicide Prevention Lifeline: The National Suicide Prevention [...] range between ( 0.0 and 7.0 ) Haralson #: 0.73 K/uL -- Normal range between ( 0.16 and 1.00 ) Eos #: 0.12 x10(3)/uL -- Normal range between ( 0.00 and 0.80 ) Haralson %: 8.7 % -- Normal range between [...] was given the opportunity to ask questions. Patient/Document Management Technician Name: Patient/Document Management Technician Signature: Relationship to Patient: Clinician/Hospital Document Management Technician Signature: Date: Electronically signed by Brittany [facility] Conversion Packager Head [employer] at 01/24/2023 10:19 AM CDT documented in this encounter Plan of Treatment Not on file documented as of this encounter Visit Diagnoses Not on filedocumented in this encounter Care Teams Graphite Disk Assembler Relationship Specialty Start Date End Date Marielos Amaral APRN [address] [address] PCP - General Nurse Practitioner 08/18/23 documented as of this encounter
--- OUTSIDE RECORDS SUMMARY | 2025-05-16 11:12 | XMS_ITS | Encounter Summary ---
Author Organization [employer] ([place], [place], [place], [place]) Address [address] [place] [address] Care Team Providers Care Special Education Tutor Name Role Phone Marielos Amaral EDUCATION REP Primary Care Provider Encounter Details Date Type Department Care Team (Late st Contact Info) Description 01/20/2019 Transcribed Document [facility] [place] Family Medicine [address] [place] [address] ProviderHaroldo MD [address] [place] [address] Social History Tobacco Use Types Packs/Day Years Used Date Smoking Tobacco: Never Assessed Sex and Gender Information Value Date Recorded Sex Assigned at Not on file Legal Sex Male 3:45 PM CDT Gender Identity Not on file Sexual Orientation Not on file documented as of this encounter Miscellaneous Notes * Cerner Conversion Note - Haroldo ProviderMD - 01/20/2019 2:38 PM CDT [address] [address] ELINA ZACKARY COOK :1950 Visit [...] up with Dr Lopez as needed Where: [address] [place] [address]- Medications What How Much When Instructions Next [...] Document Reviewed: 12/01/2012 ExitCare?? Patient Information ??2015 [employer]. This information is not intended to replace [...] including vitamins, herbs, eye drops, creams, and nzbs-bli-ieablzt medicines. ???Previous problems you or members of [...] Document Reviewed: 08/25/2013 ExitCare?? Patient Information ??2015 [employer]. This information is not intended to replace [...] including vitamins, herbs, eye drops, creams, and hkha-kaa-jkavlrk medicines. ??? Previous problems you or members [...] 07/13/2014 Document Revised: 10/13/2015 Document Reviewed: 07/13/2014 [employer] Interactive Patient Education ?? 2017 [employer]. Emergency Awareness and Preventative Care STROKE is [...] Assistance with quitting is available by contacting 0-208-VING-NOW. This is a free resource providing counseling, [...] Be sure to sign up for the [facility] patient portal, which gives you 28/04 access to your medical information ??? including these discharge instructions ??? using your computer, smartphone, or tablet. Just go to [employer] to get started. Questions? Call . Test Results Laboratory or Other Results This Visit (last charted value for your 01/20/2019 visit) General Chemistry 01/20/19 12:42:00 Glucose POC2: 182 mg/dL -- Normal range between ( 70 and 110 ) Patient Name:ZACKARY ANTOINE I have received this information and was given the opportunity to ask questions. Patient/Progressive Care Manager Name: Patient/Progressive Care Manager Signature: Relationship to Patient: Clinician/Hospital Progressive Care Manager Signature: Date: documented in this encounter Plan of Treatment Not on file documented as of this encounter Visit Diagnoses Not on filedocumented in this encounter Care Teams Special Education Tutor Relationship Specialty Start Date End Date Marielos Amaral, EDUCATION REP [address] [phone] PCP - General Nurse Practitioner 08/18/23 documented as of this encounter
--- OUTSIDE RECORDS SUMMARY | 2025-05-16 11:12 | XMS_ITS | Encounter Summary ---
Author Organization [employer] ([place], [place], [place], [place]) Address [address] [place] [address] Care Team Providers Care Drying And Winding Supervisor Name Role Phone Marielos Amaral APRN Primary Care Provider Encounter Details Date Type Department Care Team (Late st Contact Info) Description 01/20/2019 Transcribed Document [facility] [place] [address] [place] [address] ProviderHaroldo MD [address] [place] [address] Social History Tobacco Use Types Packs/Day Years [...] ELINAZACKARY /Sex: 1950 Male Med Rec #: [id number] Physician: PRINCESS DOCKERY MD-GAE Financial #: [id number] Pt. Type: O Room/Bed: N/18 Admit/Disch: 01/20/19 12:15:00 - Institution: [facility] PreOp Case Times Entry 1 In Preop 01/20/19 12:28:00 Ready for Holding n/a Room Patient Ready for 01/20/19 12:48:00 Surgery Patient Out of Preop 01/20/19 12:50:00 Patient Out of n/a Holding Room [facility] Pre[facility] Case Times Audit 01/20/19 12:48:25 Commercial Subcontractor: MILLERSH Modifier: MILLERSH <+> 1 Patient Out of Preop <+> 1 Patient Ready for Surgery Finalized By: CORRINA QUINTANA, RN Document Signatures Signed By: CORRINA QUINTANA RN 01/20/19 12:53 documented in this encounter Plan of Treatment Not on file documented as of this encounter Visit Diagnoses Not on filedocumented in this encounter Care Teams Drying And Winding Supervisor Relationship Specialty Start Date End Date Marielos Amaral, KAYE [address] [phone] PCP - General Nurse Practitioner 08/18/23 documented as of this encounter
--- OUTSIDE RECORDS SUMMARY | 2025-05-16 11:12 | XMS_ITS | Encounter Summary ---
Author Organization [employer] ([place], [place], [place], [place]) Address [address] [place] [address] Care Team Providers Care Leakage Tester Name Role Phone Munir Marielos RESTREPO Primary Care Provider Encounter Details Date Type Department Care Team (Late st Contact Info) Description 04/25/2022 Transcribed Document [facility] [place] Family Medicine [address] [place] [address] ProviderHaroldo MD [address] [place] [address] Social History Tobacco Use [...] Do you speak a language other than Bermudian at [facility]? Yes 10/30/2024 Do you [...] On: 04/25/2022 16:19 EDT by LEXX LOWRY RN-Support Services Specialist Initial Assessment I Previously Documented Living Environment : No qualifying data available. Living Situation : Home Patient Lives With : Spouse Emergency Contact #1 : Kar Carrasco Emergency Contact #1 Emergency Contact #1 Relationship : Emergency Contact #2 : January [place] Emergency Contact #2 Emergency Contact #2 Relationship : daughter Identified Medical Decision Maker : self 2nd Ident. Medical Decision Maker : Kar Carrasco 2nd Ident. Medical Decision Maker Secondary Number of People in Class : 1 2nd Ident. Medical Decision Maker Class : Medical Durable Power of Photogrammetric Engineer Name : None on file Legal Guardian : No Is Guardianship Needed : No LEXX LOWRY RN-Support Services Specialist - 04/25/2022 16:19 EDT Initial Assessment II Sensory and Motor Deficits : None Current Home Treatments and Equipment : Bedside commode, Blood glucose monitor, Cane, CPAP, Shower chair, Walker Does the Patient have a Floor to SNF Benefit? : No LEXX LOWRY RN-Support Services Specialist - 04/25/2022 16:19 EDT Discharge Needs I Anticipated Discharge Date : 04/27/2022 EDT Anticipated Discharge To, CM : Home with family care Current Home Treatment/Equipment : Current Home Treatment/Equipment No qualifying data available. Post Acute/Home Treatments : None Documentation Status Complete : Yes LEXX LOWRY RN-Support Services Specialist - 04/25/2022 16:19 EDT Discharge Needs II Professional Skilled Services : Professional Skilled Services No qualifying data available. Needs Assistance with Transportation : No Discharge Options Discussed with Patient : DME, Home Health Patient Discharge Goal : Home LEXX LOWRY, RN-Support Services Specialist - 04/25/2022 16:19 EDT documented in this encounter Plan of Treatment Not on file documented as of this encounter Visit Diagnoses Not on filedocumented in this encounter Care Teams Leakage Tester Relationship Specialty Start Date End Date Marielos Amaral, ENVIRONMENTAL SERVICES ASSOCIATE [address] [place] [address] PCP - General Nurse Practitioner 08/18/23 documented as of this encounter
--- OUTSIDE RECORDS SUMMARY | 2025-05-16 11:12 | XMS_ITS | Encounter Summary ---
Author Organization [employer] ([place], [place], [place], [place]) Address [address] [place] [address] Care Team Providers Care Traditional Maori Health Practitioner Name Role Phone Marielos Amaral APRN Primary Care Provider [phone] Encounter Details Date Type Department Care Team (Late st Contact Info) Description 04/12/2020 Transcribed Document [facility] [place] Family Medicine [address] [place] [address] ProviderHaroldo MD [address] [place] [address] Social History Tobacco Use Types Packs/Day Years [...] 1950 Associated Diagnoses: None Author: PRINCESS LOPEZ MD-[facility] Procedure: Esophagogastroduodenoscopy with with cold biopsies and radiofrequency ablation Endoscopist: Princess Lopez II, M.D. Referring Physician: Axel Hamlin M.D. Date of Procedure: April 12, 2020 Equipment: Olympus GIF-190 standard gastroscope Method of Sedation: MAC sedation Indication: Mr. Antoine is a 69-year-old gentleman who is here for follow-up surveillance upper endoscopy with possible radiofrequency ablation. 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 Initial biopsies did show intestinal [...] on filedocumented in this encounter Care Teams Traditional Maori Health Practitioner Relationship Specialty Start Date End Date Marielos Amaral, KAYE [address] [phone] PCP - General Nurse Practitioner 08/18/23 documented as of this encounter
--- OUTSIDE RECORDS SUMMARY | 2025-05-16 11:12 | XMS_ITS | Encounter Summary ---
Author Organization [employer] ([place], [place], [place], [place]) Address [address] [place] [address] Care Team Providers Care Sales Order Coordinator Name Role Phone AmaralMarielos roque KAYE Primary Care Provider Encounter Details Date Type Department Care Team (Late st Contact Info) Description 10/17/2019 Transcribed Document [facility] [place] Family Medicine [address] [place] [address] ProviderHaroldo MD [address] [place] [address] Social History Tobacco Use Types Packs/Day Years Used Date Smoking Tobacco: Never Assessed Sex and Gender Information Value Date Recorded Sex Assigned at Not on file Legal Sex Male 3:45 PM CDT Gender Identity Not on file Sexual Orientation Not on file documented as of this encounter Miscellaneous Notes * Cerner Conversion Note - Haroldo ProviderMD - 10/17/2019 12:17 PM FIELD TECHNICAL SPECIALIST Stroke/Warfarin Instructions Entered On: 10/17/2019 12:18 EST [...] filedocumented in this encounter Care Teams Sales Order Coordinator Relationship Specialty Start Date End Date Marielos Amaral APRN [address] [address] PCP - General Nurse Practitioner 08/18/23 documented as of this encounter
--- OUTSIDE RECORDS SUMMARY | 2025-05-16 11:12 | XMS_ITS | Encounter Summary ---
Author Organization [employer] ([place], [place], [place], [place]) Address [address] [place] [address] Care Team Providers Care Keeper Helper Name Role Phone Marielos Amaral KAYE Primary Care Provider Encounter Details Date Type Department Care Team (Late st Contact Info) Description 10/17/2019 Transcribed Document [facility] [place] Family Medicine [address] [place] [address] ProviderHaroldo MD [address] [place] [address] Social History Tobacco Use Types Packs/Day Years Used Date Smoking Tobacco: Never Assessed Sex and Gender Information Value Date Recorded Sex Assigned at Not on file Legal Sex Male 3:45 PM CDT Gender Identity Not on file Sexual Orientation Not on file documented as of this encounter Miscellaneous Notes * Cerner Conversion Note - Haroldo ProviderMD - 10/17/2019 11:41 AM REMITTANCE CLERK Final Discharge Planning Entered On: 10/17/2019 11:42 EST Performed On: 10/17/2019 11:41 EST by HARITHA BARRIOS Rn-General Passenger Agent Final Discharge Planning Discharge Arrangements : Patient Post-Acute Information Patient Name: ZACKARY ANTOINE Gender: Male : [birth year] Age: 68 Years No Post-Acute Placement(s) Listed No Post-Acute Service(s) Listed No [place] Referral(s) Listed Important Medicare Message Reviewed With : Patient Important Medicare Message Reviewed D/T : 10/17/2019 11:40 EST Follow Up Appointment Scheduled : No Discharge To Care Management : Home/Residential/Assisted or Self Care - HARITHA BARRIOS Rn-General Passenger Agent - 10/17/2019 11:41 EST Final Narrative Note Final Narrative Note : Transport home with spouse; unable to make f/u appt on weekend; pt verbalized he will contact his PCP to make appt. HARITHA BARRIOS Rn-General Passenger Agent - 10/17/2019 11:41 EST documented in this encounter Plan of Treatment Not on file documented as of this encounter Visit Diagnoses Not on filedocumented in this encounter Care Teams Keeper Helper Relationship Specialty Start Date End Date Marielos Amaral APRN [address] [address] PCP - General Nurse Practitioner 08/18/23 documented as of this encounter
--- OUTSIDE RECORDS SUMMARY | 2025-05-16 11:12 | XMS_ITS | Encounter Summary ---
Author Organization [employer] ([place], [place], [place], [place]) Address [address] [place] [address] Care Team Providers Care Hot Knife Cutter Name Role Phone Marielos Amaral KAYE Primary Care Provider Encounter Details Date Type Department Care Team (Late st Contact Info) Description 10/18/2019 Transcribed Document [facility] [place] [address] [place] [address] ProviderHaroldo MD [address] [place] [address] Social History Tobacco Use Types Packs/Day Years Used Date Smoking Tobacco: Never Assessed Sex and Gender Information Value Date Recorded Sex Assigned at Not on file Legal Sex Male 3:45 PM CDT Gender Identity Not on file Sexual Orientation Not on file documented as of this encounter Miscellaneous Notes * Cerner Conversion Note - Haroldo ProviderMD - 10/18/2019 8:04 AM RETAIL FIELD SUPERVISOR UM Authorization Entered On: 10/18/2019 8:04 EST Performed On: 10/18/2019 8:04 EST by DIONE REY Bilingual Social Worker Primary Insurance Authorization Authorization and Policy Numbers : Insurance 1 Health Plan: [employer] [place] [employer] PLUS HMO Policy Number: [id number] Authorization Number: Insurance Primary Name : [employer] GOLD PLUS HMO Policy Number: [id number] Authorization Status-Primary : Notification only Auth/Referral Contact Name-Primary : Wenceslao R Authorization Number-Primary : [id number] Authorized Service Begin Date-Primary : 10/14/2019 EST Authorization Comments-Primary : inpt approved per email from Wenceslao Schmidt with [employer] auth# [id number] Historical Authorization Comments-Primary : Comment 1: ref# per star notes (Mary Haynes, Rn-Utilization Review 10/15/2019 08:57) Comment 2: clinical faxed per [employer] for ip auth (Mary Haynes, Rn-Utilization Review 10/15/2019 08:55) DIONE REY, Bilingual Social Worker - 10/18/2019 8:04 EST Electronically signed by Brittany [facility] Conversion Director Home Cerner at 01/24/2023 10:23 AM CDT documented in this encounter Plan of Treatment Not on file documented as of this encounter Visit Diagnoses Not on filedocumented in this encounter Care Teams Hot Knife Cutter Relationship Specialty Start Date End Date AmaralRosettee, INSTALLATION SUPERINTENDENT [address] [address] PCP - General Nurse Practitioner 08/18/23 documented as of this encounter
--- OUTSIDE RECORDS SUMMARY | 2025-05-16 11:12 | XMS_ITS | Encounter Summary ---
Author Organization [employer] ([place], [place], [place], [place]) Address [address] [place] [address] Care Team Providers Care Air Dispatcher Name Role Phone Marielos Amaral KAYE Primary Care Provider Encounter Details Date Type Department Care Team (Late st Contact Info) Description 02/05/2019 Transcribed Document [facility] [place] [address] [place] [address] ProviderHaroldo MD [address] [place] [address] Social History Tobacco Use Types Packs/Day Years [...] to right arm and loss of balance tearer strength equal bilaterally decreased sensation to right arm and right leg no facial droop or slurred speech equal bilateral lower extremities Merritt Guzman RN - 02/05/2019 18:55 EDT DCP GENERIC CODE Tracking Acuity : 2 - Emergent Tracking Group : [facility] ED Merritt Guzman RN - 02/05/2019 18:55 [...] 02/05/2019 19:01:21 EDT) Problems(Active) Angina (SNOMED CT :608835604 ) Name of Problem: Angina ; Recorder: RAVEN REILLY RN; Confirmation: Confirmed ; Classification: Patient Stated ; Code: [id number] ; Contributor System: PowerChart ; Last Updated: 07/20/2014 9:33 EDT ; Life Cycle Date: 07/20/2014 ; Life Cycle Status: Active ; Vocabulary: SNOMED CT Coronary artery disease (SNOMED CT :4990903414 ) Name of Problem: Coronary artery disease ; Recorder: RAVEN REILLY RN; Confirmation: Confirmed ; Classification: Patient Stated ; Code: 2250056616 ; Contributor System: PowerChart ; Last Updated: 07/20/2014 9:33 EDT ; Life Cycle Date: 07/20/2014 ; Life Cycle Status: Active ; Vocabulary: SNOMED CT Diabetes mellitus type II (SNOMED CT :37925474 ) Name of Problem: Diabetes mellitus type II ; Recorder: RAVNE REILLY RN; Confirmation: Confirmed ; Classification: Patient Stated ; Code: 67984550 ; Contributor System: 8020selectChart ; Last Updated: 07/20/2014 9:35 EDT ; Life Cycle Date: 07/20/2014 ; Life Cycle Status: Active ; Vocabulary: SNOMED CT Enlarged prostate (SNOMED CT :746914010 ) Name of Problem: Enlarged prostate ; Recorder: RAVEN REILLY RN; Confirmation: Confirmed ; Classification: Patient Stated ; Code: 939769044 ; Contributor System: PowerChart ; Last Updated: 07/20/2014 9:34 EDT ; Life Cycle Date: 07/20/2014 ; Life Cycle Status: Active ; Vocabulary: SNOMED CT GERD - Gastro-esophageal reflux disease (SNOMED CT :2002824269 ) Name of Problem: GERD - Gastro-esophageal reflux disease ; Recorder: RAVEN REILLY RN; Confirmation: Confirmed ; Classification: Patient Stated ; Code: 0072785789 ; Contributor System: PowerChart ; Last Updated: 07/20/2014 9:34 EDT ; Life Cycle Date: 07/20/2014 ; Life Cycle Status: Active ; Vocabulary: SNOMED CT Heart failure (SNOMED CT :318260601 ) Name of Problem: Heart failure ; Recorder: RAVEN REILLY RN; Confirmation: Confirmed ; Classification: Patient Stated ; Code: 989375174 ; Contributor System: PowerChart ; Last Updated: 07/20/2014 9:33 EDT ; Life Cycle Date: 07/20/2014 ; Life Cycle Status: Active ; Vocabulary: SNOMED CT Heart murmur (SNOMED CT :333582571 ) Name of Problem: Heart murmur ; Recorder: RAVEN REILLY RN; Confirmation: Confirmed ; Classification: Patient Stated ; Code: 477471613 ; Contributor System: PowerChart ; Last Updated: 07/20/2014 9:33 EDT ; Life Cycle Date: 07/20/2014 ; Life Cycle Status: Active ; Vocabulary: SNOMED CT History of obstructive sleep apnea (IMO :34131193 ) Name of Problem: History of obstructive sleep apnea ; Recorder: SYSTEM, SYSTEM; Confirmation: Confirmed ; Classification: Medical ; Code: 65734323 ; Last Updated: 01/20/2019 12:39 EDT ; Life Cycle Date: 01/20/2019 ; Life Cycle Status: Active ; Vocabulary: IMO Hyperlipidemia (SNOMED CT :93963406 ) Name of Problem: Hyperlipidemia ; Recorder: RAVEN REILLY RN; Confirmation: Confirmed ; Classification: Patient Stated ; Code: 50000857 ; Contributor System: PowerChart ; Last Updated: 09/03/2017 13:38 EST ; Life Cycle Date: 07/20/2014 ; Life Cycle Status: Active ; Vocabulary: SNOMED CT Hypertension (SNOMED CT :32795375 ) Name of Problem: Hypertension ; Recorder: RAVEN REILLY RN; Confirmation: Confirmed ; Classification: Patient Stated ; Code: 62891941 ; Contributor System: PowerChart ; Last Updated: 07/20/2014 9:33 EDT ; Life Cycle Date: 07/20/2014 ; Life Cycle Status: Active ; Vocabulary: SNOMED CT Impaired vision (SNOMED CT :79656937 ) Name of Problem: Impaired vision ; Recorder: RAVEN REILLY RN; Confirmation: Confirmed ; Classification: Patient Stated ; Code: 19482054 ; Contributor System: PowerChart ; Last Updated: 07/20/2014 9:32 EDT ; Life Cycle Date: 07/20/2014 ; Life Cycle Status: Active ; Vocabulary: SNOMED CT Migraine (SNOMED CT :39520645 ) Name of Problem: Migraine ; Recorder: RAVEN REILLY RN; Confirmation: Confirmed ; Classification: Patient Stated ; Code: 03877358 ; Contributor System: PowerChart ; Last Updated: 07/20/2014 9:35 EDT ; Life Cycle Date: 07/20/2014 ; Life Cycle Status: Active ; Vocabulary: SNOMED CT Stented coronary artery (SNOMED CT :5925352754 ) Name of Problem: Stented coronary artery ; Recorder: RAVEN REILLY RN; Confirmation: Confirmed ; Classification: Patient Stated ; Code: 7159371737 ; Contributor System: Meuugame ; Last Updated: 07/20/2014 9:33 EDT ; Life Cycle Date: 07/20/2014 ; Life Cycle Status: Active ; Vocabulary: SNOMED CT Diagnoses(Active) Weakness Date: 02/05/2019 ; Diagnosis Type: Reason For Visit ; Confirmation: Complaint of ; Clinical Dx: Weakness ; Classification: Medical ; Clinical Service: Emergency medicine ; Code: PNED ; Probability: 0 ; Diagnosis Code: [id number] ED Height and Weight Height Source : Stated Height Entry Format : [place] Height, Feet : 5 ft(Converted to: 152 cm, 60 Inch) Height, Inches : 9 Inch(Converted to: 0 ft 9 Inch, 22.86 cm) Clinical Height : 175.26 cm Weight Source, ED : Critical estimated dosing weight Weight Entry Format : [place] Weight, Pounds : 175 lb Clinical Dosing Weight : 79.55 kg Body Surface Area (BSA) : 1.95 m2 Body Mass Index : 25.9 kg/m2 ([place]) [place] Body Weight (IBW) : 69.73 kg Merritt Guzman, LUIS - 02/05/2019 18:55 EDT documented in this encounter Plan of Treatment Not on file documented as of this encounter Visit Diagnoses Not on filedocumented in this encounter Care Teams Air Dispatcher Relationship Specialty Start Date End Date Marielos Amaral, PROPERTY INSURANCE AGENT [address] [address] PCP - General Nurse Practitioner 08/18/23 documented as of this encounter
--- OUTSIDE RECORDS SUMMARY | 2025-05-16 11:12 | XMS_ITS | Encounter Summary ---
Author Organization [email or web address] ([place], [place], [place], [place]) Address [address] [place] [address] Care Team Providers Care Branch Specialist Name Role Phone Marielos Amaral KAYE Primary Care Provider Encounter Details Date Type Department Care Team (Late st Contact Info) Description 04/24/2022 Transcribed Document [facility] [address] [place], [place] [id number] Saba Neal MD [address] [place] [address] [address] [place] [address] Social History Tobacco Use Types Packs/Day Years [...] harm? Never 10/30/2024 How often does anyone, ezhra harvey family and friends, scream or curse [...] Do you speak a language other than Japanese at [facility]? Yes 10/30/2024 [...] Associated Diagnoses: None Author: SABA NEAL MD-[facility] Purpose of [...] on filedocumented in this encounter Care Teams Branch Specialist Relationship Specialty Start Date End Date Marielos Amaral, CELLAR SUPERVISOR [address] [phone] PCP - General Nurse Practitioner 08/18/23 documented as of this encounter
--- OUTSIDE RECORDS SUMMARY | 2025-05-16 11:12 | XMS_ITS | Encounter Summary ---
Author Organization [employer] ([place], [place], [place], [place]) Address [address] [place] [address] Care Team Providers Care Welder Name Role Phone Marielos Amaral KAYE Primary Care Provider Encounter Details Date Type Department Care Team (Late st Contact Info) Description 04/12/2020 Transcribed Document [facility] [address] [place] [address] ProviderHaroldo MD [address] [place] [address] Social History Tobacco Use Types Packs/Day Years Used Date Smoking Tobacco: Never Assessed Sex and Gender Information Value Date Recorded Sex Assigned at Not on file Legal Sex Male 3:45 PM CDT Gender Identity Not on file Sexual Orientation Not on file documented as of this encounter Miscellaneous Notes * Cerner Conversion Note - Haroldo ProviderMD - 04/12/2020 7:58 AM CDT [address] [address] ELINA ZACKARY COOK :1950 Visit [...] needed Comments follow up as directed Where: [address] [id number]- Medications What How Much When Instructions Next [...] Tomatoes and foods made with tomatoes. ? [place] or spicy foods. ? Chocolate and peppermint. ??? Do not drink alcohol. General instructions ??? Take isyc-aok-kenudqp and prescription medicines only as told by [...] 12/12/2004 Document Revised: 01/18/2019 Document Reviewed: 01/18/2019 [employer] Interactive Patient Education ?? 2020 [employer]. General Anesthesia, Adult, Care After This sheet [...] activities are safe for you. ??? Take hngs-izs-wgqhuli and prescription medicines only as told by [...] 12/29/2001 Document Revised: 05/08/2018 Document Reviewed: 05/08/2018 [employer] Interactive Patient Education ?? 2020 Elsevier Inc. [...] Assistance with quitting is available by contacting 0-544-XBTO-NOW. This is a free resource providing counseling, [...] was given the opportunity to ask questions. Patient/Branch Office Administrator Name: Patient/Branch Office Administrator Signature: Relationship to Patient: Clinician/Hospital Branch Office Administrator Signature: Date: documented in this encounter Plan of Treatment Not on file documented as of this encounter Visit Diagnoses Not on filedocumented in this encounter Care Teams Welder Relationship Specialty Start Date End Date Marielos Amaral, HALAL MEAT PACKER [address] [place] [address] PCP - General Nurse Practitioner 08/18/23 documented as of this encounter
--- OUTSIDE RECORDS SUMMARY | 2025-05-16 11:12 | XMS_ITS | Encounter Summary ---
Author Organization [employer] ([place], [place], [place], [place]) Address [address] [place] [address] Care Team Providers Care Hunting Sales Associate Name Role Phone Marielos Amaral DUMPER Primary Care Provider Encounter Details Date Type Department Care Team (Late st Contact Info) Description 10/17/2019 Transcribed Document [facility] [place] [address] [place] [address] ProviderHaroldo MD [address] [place] [address] Social History Tobacco Use Types Packs/Day Years Used Date Smoking Tobacco: Never Assessed Sex and Gender Information Value Date Recorded Sex Assigned at Not on file Legal Sex Male 3:45 PM CDT Gender Identity Not on file Sexual Orientation Not on file documented as of this encounter Miscellaneous Notes * Cerner Conversion Note - Historical ProviderMD - 10/17/2019 11:43 AM DAYLIGHT DRILLER Patient: ZACKARY ANTOINE Age: 68 Years Sex: [...] PRN Eliquis, 5 mg= 1 Tab, Oral, [id number] Flomax, 0.4 mg= 1 Cap, Oral, Daily [...] Push, Q4H, PRN Electronically signed by Brittany [facility] Conversion Vessel Welder [employer] at 01/24/2023 10:40 AM CDT documented in this encounter Plan of Treatment Not on file documented as of this encounter Visit Diagnoses Not on filedocumented in this encounter Care Teams Hunting Sales Associate Relationship Specialty Start Date End Date Marielos Amaral, DUMPER [address] [phone] PCP - General Nurse Practitioner 08/18/23 documented as of this encounter
--- OUTSIDE RECORDS SUMMARY | 2025-05-16 11:12 | XMS_ITS | Encounter Summary ---
Author Organization [employer] ([place], [place], [place], [place]) Address [address] [place] [address] Care Team Providers Care Weigh Tank Operator Name Role Phone Marielos Amaral KAYE Primary Care Provider Encounter Details Date Type Department Care Team (Late st Contact Info) Description 02/06/2019 Transcribed Document [facility] [place] Medicine [address] [place] [address] ProviderHaroldo MD [address] [place] [address] Social History Tobacco Use Types Packs/Day Years [...] 02/06/2019 8:54 EDT Electronically signed by Brittany [facility] Conversion Guide Domestic Tour Cerner at 01/24/2023 10:20 AM CDT documented in this encounter Plan of Treatment Not on file documented as of this encounter Visit Diagnoses Not on filedocumented in this encounter Care Teams Weigh Tank Operator Relationship Specialty Start Date End Date Marielos Amaral, CHAMPION OF SUSTAINABLE DESIGN [address] [phone] PCP - General Nurse Practitioner 08/18/23 documented as of this encounter
--- OUTSIDE RECORDS SUMMARY | 2025-05-16 11:12 | XMS_ITS | Encounter Summary ---
Author Organization [employer] ([place], [place], [place], [place]) Address [address] [place] [address] Care Team Providers Care Low Raw Sugar Cutter Name Role Phone Marielos Amaral LIFE CLAIMS EXAMINER Primary Care Provider Encounter Details Date Type Department Care Team (Late st Contact Info) Description 02/06/2019 Transcribed Document [facility] [place] Medicine [address] [place] [address] ProviderHaroldo MD [address] [place] [address] Social History Tobacco Use Types Packs/Day Years [...] 02/06/2019 9:37 EDT Electronically signed by Brittany [facility] Conversion Maintenance And Operations Supervisor Cerner at 01/24/2023 10:23 AM CDT documented in this encounter Plan of Treatment Not on file documented as of this encounter Visit Diagnoses Not on filedocumented in this encounter Care Teams Low Raw Sugar Cutter Relationship Specialty Start Date End Date Marielos Amaral, KAYE [address] [phone] PCP - General Nurse Practitioner 08/18/23 documented as of this encounter
--- OUTSIDE RECORDS SUMMARY | 2025-05-16 11:12 | XMS_ITS | Encounter Summary ---
Author Organization ? ([place], [place], [place], [place]) Address [address] [place] [address] Care Team Providers Care Integration Manager Name Role Phone Marielos Amaral KAYE Primary Care Provider Encounter Details Date Type Department Care Team (Late st Contact Info) Description 10/17/2019 Transcribed Document [facility] [place] Medicine [address] [place] [address] ProviderHaroldo MD [address] [place] [address] Social History Tobacco Use Types Packs/Day Years Used Date Smoking Tobacco: Never Assessed Sex and Gender Information Value Date Recorded Sex Assigned at Not on file Legal Sex Male 3:45 PM CDT Gender Identity Not on file Sexual Orientation Not on file documented as of this encounter Miscellaneous Notes * Cerner Conversion Note - Haroldo ProviderMD - 10/17/2019 2:11 PM STUDENT Nursing Discharge Summary Entered On: 10/17/2019 14:13 [...] - 10/17/2019 14:11 EST Electronically signed by [facility] Conversion Community Engagement Coordinator Cerner at 01/24/2023 10:34 AM CDT documented in this encounter Plan of Treatment Not on file documented as of this encounter Visit Diagnoses Not on filedocumented in this encounter Care Teams Integration Manager Relationship Specialty Start Date End Date Marielos Amaral, NAILHEAD SETTER [address] [place] [address] PCP - General Nurse Practitioner 08/18/23 documented as of this encounter
--- OUTSIDE RECORDS SUMMARY | 2025-05-16 11:12 | XMS_ITS | Encounter Summary ---
Author Organization [employer] ([place], [place], [place], [place]) Address [address] [place] [address] Care Team Providers Care Conference Center Coordinator Name Role Phone Marielos Amaral DIRECTOR OF LAND ACQUISITION Primary Care Provider [phone] Encounter Details Date Type Department Care Team (Late st Contact Info) Description 10/16/2019 Transcribed Document [facility] [place] [address] [place] [address] ProviderHaroldo MD [address] [place] [address] Social History Tobacco Use Types Packs/Day Years Used Date Smoking Tobacco: Never Assessed Sex and Gender Information Value Date Recorded Sex Assigned at Not on file Legal Sex Male 3:45 PM CDT Gender Identity Not on file Sexual Orientation Not on file documented as of this encounter Miscellaneous Notes * Cerner Conversion Note - Haroldo ProviderMD - 10/16/2019 3:33 PM TURNING AND BEADING MACHINE OPERATOR Patient: ZACKARY ANTOINE Age: 68 years Sex: [...] Shortness of Breath Eliquis: 5 mg, Oral, [id number] Flomax: 0.4 mg, Oral, Daily Metoprolol Succinate [...] 5 mg oral tablet: 1 Tab, Oral, [id number], 60 Tab, 0 Refill(s) Toprol-XL 25 mg [...] tablet 5 mg = 1 Tab, Oral, Z11XIfe Eliquis 5 mg oral tablet 5 mg [...] mg tab 5 mg 1 Tab, Oral, W62FZqx atorvastatin 40 mg tab 40 mg 1 [...] History of obstructive sleep apnea / IMO [id number] / Confirmed, Active Problems (13) Angina Coronary [...] (OCT 14) Radiology Results (Last 48 hours) [id number] -- 10/14/2019 17:19 CT Head WO Code [...] on filedocumented in this encounter Care Teams Conference Center Coordinator Relationship Specialty Start Date End Date Marielos Amaral, DIRECTOR OF LAND ACQUISITION [address] [place] [address] PCP - General Nurse Practitioner 08/18/23 documented as of this encounter
--- OUTSIDE RECORDS SUMMARY | 2025-05-16 11:12 | XMS_ITS | Encounter Summary ---
Author Organization [employer] ([place], [place], [place], [place]) Address [address] [place] [address] Care Team Providers Care Plumber Cub Name Role Phone Marielos Amaral KAYE Primary Care Provider Encounter Details Date Type Department Care Team (Late st Contact Info) Description 02/06/2019 Transcribed Document [facility] [place] [address] [place] [address] ProviderHaroldo MD [address] [place] [address] Social History Tobacco Use Types Packs/Day Years [...] 02/06/2019 8:04 EDT by OFELIA ROY Patient Cushion Stuffer Phone Call for Consults Consult Phone Call/Page Attempt : First call Physician Requesting Consult : SAYDA TORRES RES-SYDNI Physician Requested for Consult : PRIYA JIANG MD-NEU Provider Service Notified Name : Neurology Physician Covering for Consult : PRIYA JIANG MD-NEU Date and Time Call Returned : 02/06/2019 8:02 EDT OFELIA ROY, Patient Cushion Stuffer - 02/06/2019 8:04 EDT documented in this encounter Plan of Treatment Not on file documented as of this encounter Visit Diagnoses Not on filedocumented in this encounter Care Teams Plumber Cub Relationship Specialty Start Date End Date Marielos Amaral, WANT AD SUPERVISOR [address] [phone] PCP - General Nurse Practitioner 08/18/23 documented as of this encounter
--- OUTSIDE RECORDS SUMMARY | 2025-05-16 11:12 | XMS_ITS | Encounter Summary ---
Author Organization [employer] ([place], [place], [place], [place]) Address [address] [place] [address] Care Team Providers Care Protector Plate Attacher Name Role Phone Munir Marielos RESTREPO Primary Care Provider Encounter Details Date Type Department Care Team (Late st Contact Info) Description 04/24/2022 Transcribed Document [facility] [place] [address] [place] [address] ProviderHaroldo MD [address] [place] [address] Social History Tobacco Use Types [...] Do you speak a language other than Thai at [facility]? Yes 10/30/2024 Do you want help with [...] Other (See Comment) Eliquis: 2.5 mg, Oral, A67LBcm Flomax: 0.4 mg, Oral, Daily Metoprolol Succinate ER: 50 mg, Oral, Daily Normal Saline 1,000 mL: 100 mL/Hr, IntraVENous Rocephin: 1 Gram, 100 mL/Hr, IV Piggyback, M54HKnp Tylenol: 650 mg, Oral, Q4H, PRN: Pain [...] mg tab 2.5 mg 1 Tab, Oral, N75NAwd atorvastatin 40 mg tab 40 mg 1 Tab, Oral, At Bedtime cefTRIAXone 1 Gram, IV Piggyback, S86NKpl cholecalciferol 1,000 unit tab 1,000 Units 1 [...] list: Medical Atrial fibrillation / SNOMED CT 63777543 / Confirmed CAD - Coronary artery disease / SNOMED CT 1827183108 / Confirmed Cardiomyopathy / SNOMED CT 648402656 / Confirmed Acute cerebrovascular accident (CVA) / SNOMED CT 459905611 / Confirmed History of obstructive sleep apnea / IMO [id number] / Confirmed HLD - Hyperlipidemia / SNOMED CT 404817442 / Confirmed HTN - Hypertension / SNOMED CT 9476627443 / Confirmed Type 2 diabetes mellitus / SNOMED CT 499668924 / Confirmed, Active Problems (20) Acute cerebrovascular [...] Gastrointestinal: Soft, Non-tender, Non-distended. Integumentary: Warm, Dry, [place]. Neurologic: Alert, Oriented, No focal deficits. Psychiatric: [...] renal diet. - No emergent need of FLATWORK IRONER. Will follow. documented in this encounter Plan of Treatment Not on file documented as of this encounter Visit Diagnoses Not on filedocumented in this encounter Care Teams Protector Plate Attacher Relationship Specialty Start Date End Date Marielos Amaral, GENERAL PRODUCTION MANAGER [address] [address] PCP - General Nurse Practitioner 08/18/23 documented as of this encounter
--- OUTSIDE RECORDS SUMMARY | 2025-05-16 11:12 | XMS_ITS | Encounter Summary ---
Author Organization [employer] ([place], [place], [place], [place]) Address [address] [place] [address] Care Team Providers Care Aquatic Laborer Name Role Phone Marielos Amaral KAYE Primary Care Provider Encounter Details Date Type Department Care Team (Late st Contact Info) Description 02/05/[address] [facility] [place] [address] [place] [address] ProviderHaroldo MD [address] [place] [address] Social History Tobacco Use Types Packs/Day Years [...] Communication Barrier : None Primary Language : Lithuanian Any Spiritual/Cultural Needs or Requests : No [...] Grid All Lobes Breath Sounds : Diminished Mikalya Roberto Rn - 02/05/2019 23:14 EDT Respiratory Pattern Description : Regular Mikayla Rboerto Rn - 02/05/2019 23:14 EDT Gastrointestinal ED [...] Mikayla Roberto Rn - 02/05/2019 23:14 EDT [place] Coma [place] Best Motor Response : Obey commands [place] Best Verbal Response : Oriented [place] Eye Opening Response : Spontaneous Uvaldo Coma Score : 15 Mikayla Roberto Rn - 02/05/2019 23:14 EDT Electronically signed by Brittany [facility] Conversion Polysomnographic Technician Cerner at 01/24/2023 10:25 AM CDT documented in this encounter Plan of Treatment Not on file documented as of this encounter Visit Diagnoses Not on filedocumented in this encounter Care Teams Aquatic Laborer Relationship Specialty Start Date End Date Marielos Amaral, KAYE [address] [address] PCP - General Nurse Practitioner 08/18/23 documented as of this encounter
--- OUTSIDE RECORDS SUMMARY | 2025-05-16 11:12 | XMS_ITS | Encounter Summary ---
Author Organization [employer] ([place], [place], [place], [place]) Address [address] [place] [address] Care Team Providers Care Welfare Analyst Name Role Phone Marielos Amaral KAYE Primary Care Provider Encounter Details Date Type Department Care Team (Late st Contact Info) Description 01/20/2019 Transcribed Document [facility] [place] Family Medicine [address] [place] [address] ProviderHaroldo MD [address] [place] [address] Social History Tobacco Use Types Packs/Day Years [...] Document Reviewed: 12/01/2012 ExitCare? Patient Information ?2014 niiu. This information is not intended to replace [...] including vitamins, herbs, eye drops, creams, and qlwh-vuw-famvyoq medicines. ? Previous problems you or members [...] Document Reviewed: 08/25/2013 ExitCare? Patient Information ?2014 niiu. This information is not intended to replace [...] including vitamins, herbs, eye drops, creams, and obvn-xqf-lyvrbth medicines. ??? Previous problems you or members [...] 07/13/2014 Document Revised: 10/13/2015 Document Reviewed: 07/13/2014 [employer] Interactive Patient Education ? 2017 [employer]. documented in this encounter Plan of Treatment Not on file documented as of this encounter Visit Diagnoses Not on filedocumented in this encounter Care Teams Welfare Analyst Relationship Specialty Start Date End Date Marielos Amaral APRN [address] [address] PCP - General Nurse Practitioner 08/18/23 documented as of this encounter
--- OUTSIDE RECORDS SUMMARY | 2025-05-16 11:12 | XMS_ITS | Encounter Summary ---
Author Organization [employer] ([place], [place], [place], [place]) Address [address] [place] [address] Care Team Providers Care Door Person Name Role Phone Marielos Amaral APRN Primary Care Provider Encounter Details Date Type Department Care Team (Late st Contact Info) Description 10/17/2019 Transcribed Document [facility] [place] Family Medicine [address] [place] [address] ProviderHaroldo MD [address] [place] [address] Social History Tobacco Use Types Packs/Day Years Used Date Smoking Tobacco: Never Assessed Sex and Gender Information Value Date Recorded Sex Assigned at Not on file Legal Sex Male 3:45 PM CDT Gender Identity Not on file Sexual Orientation Not on file documented as of this encounter Miscellaneous Notes * [employer]ner Conversion Note - Haroldo ProviderMD - 10/17/2019 1:38 PM SENIOR RESEARCH MANAGER [facility] [address] [place] [place] [id number] DEION ANTOINE :1950 Visit Time:10/14/2019 Your Visit Summary Your Care Team Admitting Physician - PETRA TORRES MD-INT PHY, UNKNOWN FANY MCCRACKEN MD Attending Physician - PETRA TORRES MD-INT F[place] MCCRACKEN MD Primary Care Physician - KATELYN MCKEON MD-[facility] Referring Physician - FANY MCCRACKEN MD [...] (carb controlled) Follow-Up Appointments Follow Up with [facility] Cardiology When Within 1 to 2 weeks Comments for stress test Follow Up with Follow up with primary care provider When Within 2 weeks Comments check TSH Follow Up with ALBERTO RIZVI When Within 6 weeks Comments Patient should call for a follow up appointment with [facility] Neurology. Where: [address] [place] [address] [employer] (1) Warfarin Instructions Indication for Warfarin Anticoagulation: [...] 12/26/2017 Document Revised: 12/26/2017 Document Reviewed: 12/26/2017 [employer] Interactive Patient Education ?? 2019 [employer] Stroke Prevention Some medical conditions and [...] lot or have excessive sleepiness. ??? Take ofzx-kgv-wenowui and prescription medicines only as told by [...] more information For more information, visit: ??? [place] Stroke Association: www.strokeassociation.org ??? National Stroke Association: [...] 10/30/2005 Document Revised: 10/28/2017 Document Reviewed: 10/28/2017 [employer] Interactive Patient Education ?? 2019 [employer]. nitroglycerin (oral/sublingual) ([place] troe GLI ser in [...] may report side effects to FDA at 1-062-CZF-4443. What other drugs will affect nitroglycerin? Tell your doctor about all your current medicines, especially: ?? aspirin, heparin; ?? medicine used to treat blood clots; ?? blood pressure medication; or ?? ergot medicine--dihydroergotamine, ergotamine, ergonovine, methylergonovine. This list is not complete and many other drugs may affect nitroglycerin. This includes prescription and lrci-fex-wqugcve medicines, vitamins, and herbal products. Not all [...] to ensure that the information provided by [employer] ('[employer]') is accurate, up-to-date, and complete, but no guarantee is made to that effect. Drug information contained herein may be time sensitive. ERN information has been compiled for use by healthcare practitioners and consumers in the [place] and therefore ERN does not warrant that uses outside of the [place] are appropriate, unless specifically indicated otherwise. [employer] drug information does not endorse drugs, diagnose patients or recommend therapy. [employer] drug information is an informational resource designed [...] effective or appropriate for any given patient. ERN does not assume any responsibility for any aspect of healthcare administered with the aid of information ERN provides. The information contained herein is not intended to cover all possible uses, directions, precautions, warnings, drug interactions, allergic reactions, or adverse effects. If you have questions about the drugs you are taking, check with your doctor, nurse or pharmacist. Copyright 7164-1729 [employer] Version: 15.01. Revision Date: 08/12/2019. levothyroxine (oral/injection) [...] may report side effects to FDA at 4-495-UPY-8265. What other drugs will affect levothyroxine? Many [...] can affect levothyroxine. This includes prescription and urmj-tap-jzwueee medicines, vitamins, and herbal products. Not all [...] to ensure that the information provided by [employer] ('[employer]') is accurate, up-to-date, and complete, but no guarantee is made to that effect. Drug information contained herein may be time sensitive. ERN information has been compiled for use by healthcare practitioners and consumers in the [place] and therefore ERN does not warrant that uses outside of the [place] are appropriate, unless specifically indicated otherwise. [employer] drug information does not endorse drugs, diagnose patients or recommend therapy. [employer] drug information is an informational resource designed [...] effective or appropriate for any given patient. ERN does not assume any responsibility for any aspect of healthcare administered with the aid of information ERN provides. The information contained herein is not intended to cover all possible uses, directions, precautions, warnings, drug interactions, allergic reactions, or adverse effects. If you have questions about the drugs you are taking, check with your doctor, nurse or pharmacist. Copyright 5697-5063 [employer] Version: 13.04. Revision Date: 05/05/2019. Emergency Awareness [...] Assistance with quitting is available by contacting 2-540-MXPH-NOW. This is a free resource providing counseling, support, and referral. Or you may contact your personal physician. [employer] Suicide Prevention Lifeline: The National Suicide Prevention [...] range between ( 0.0 and 7.0 ) Russell #: 0.73 K/uL -- Normal range between ( 0.16 and 1.00 ) Eos #: 0.12 x10(3)/uL -- Normal range between ( 0.00 and 0.80 ) Russell %: 8.7 % -- Normal range between [...] was given the opportunity to ask questions. Patient/Film Composer Name: Patient/Film Composer Signature: Relationship to Patient: Clinician/Hospital Film Composer Signature: Date: documented in this encounter Plan of Treatment Not on file documented as of this encounter Visit Diagnoses Not on filedocumented in this encounter Care Teams Door Person Relationship Specialty Start Date End Date Marielos Amaral APRN [address] [address] PCP - General Nurse Practitioner 08/18/23 documented as of this encounter
--- OUTSIDE RECORDS SUMMARY | 2025-05-16 11:12 | XMS_ITS | Encounter Summary ---
Author Organization [employer] ([place], [place], [place], [place]) Address [address] [place] [address] Care Team Providers Care Radiation Control Technician Name Role Phone Marielos Amaral APRN Primary Care Provider Encounter Details Date Type Department Care Team (Late st Contact Info) Description 10/16/2019 Transcribed Document [facility] Radiology [address] [place] [id number] Camilo Steven MD [address] [place] [address] Social History Tobacco Use Types Packs/Day Years [...] flowsheet : Measurements 10/15/2019 5:58 EST Height/Length, KOREAN (ft) 5 ft Height/Length KOREAN 9 Inch Routine Weight, Kilograms 87.5 kg [...] Normal strength, No deformity. Integumentary: Warm, Dry, [place], No rash. Neurologic: Alert, Oriented, No focal deficits. Psychiatric: Cooperative, Appropriate mood & affect. Results Review OCT 16 04:19 138 109 15 / H 134 3.8 24 1.30 \ Cardiac Markers (Current Encounter/Past 24 Hours) CK MB 1.20 ng/mL 10/15/2019 16:28 CK 101 Units/Liter 10/15/2019 04:57 Radiology Results (Last 48 hours) [id number] -- 10/14/2019 17:19 CR Chest 1 Vw [...] on filedocumented in this encounter Care Teams Radiation Control Technician Relationship Specialty Start Date End Date Marielos Amaral, KAYE [address] [place] [address] PCP - General Nurse Practitioner 11/13/23 documented as of this encounter
--- OUTSIDE RECORDS SUMMARY | 2025-05-16 11:12 | XMS_ITS | Encounter Summary ---
Author Organization [employer] ([place], [place], [place], [place]) Address [address] [place] [address] Care Team Providers Care Clock Mechanic Name Role Phone Marielos Amaral APRN Primary Care Provider Encounter Details Date Type Department Care Team (Late st Contact Info) Description 01/20/2019 Transcribed Document [facility] [place] [address] [place] [address] ProviderHaroldo MD [address] [place] [address] Social History Tobacco Use Types Packs/Day Years [...] JOYCE /Sex: 1950 Male Med Rec #: [id number] Physician: PRINCESS DOCKERY MD-GAE Financial #: [id number] Pt. Type: O Room/Bed: N/18 Admit/Disch: 01/20/19 12:15:00 - Institution: [facility] PACU Case Times Entry 1 In PACU I 01/20/19 14:28:00 Ready for PACU 01/20/19 15:04:00 Discharge Discharge from PACU 01/20/19 15:04:00 I [facility] PACU Case Times Audit 01/20/19 15:04:37 Instructional Resource Teacher: KELVIN Modifier: KELVIN <+> 1 Ready for PACU Discharge <+> 1 Discharge from PACU I Finalized By: EZEKIEL CARMICHAEL, RN Document Signatures Signed By: EZEKIEL CARMICHAEL, RN 01/20/19 15:04 Electronically signed by Brittany [facility] Conversion Mortgage Loan Officer Originator Cerner at 01/24/2023 10:31 AM CDT documented in this encounter Plan of Treatment Not on file documented as of this encounter Visit Diagnoses Not on filedocumented in this encounter Care Teams Clock Mechanic Relationship Specialty Start Date End Date Marielos Amaral, EMERGENCY MEDCL EMT [address] [phone] PCP - General Nurse Practitioner 08/18/23 documented as of this encounter
--- OUTSIDE RECORDS SUMMARY | 2025-05-16 11:12 | XMS_ITS | Encounter Summary ---
Author Organization [employer] ([place], [place], [place], [place]) Address [address] [place] [address] Care Team Providers Care Wheel Polisher Name Role Phone Marielos Amaral KAYE Primary Care Provider Encounter Details Date Type Department Care Team (Late st Contact Info) Description 04/12/2020 Transcribed Document [facility] [place] [address] [place] [address] ProviderHaroldo MD [address] [place] [address] Social History Tobacco Use Types Packs/Day Years [...] Source : Stated Height Entry Format : Travis Height, Feet : 5 ft(Converted to: 152 cm, 60 Inch) Height, Inches : 10 Inch(Converted to: 0 ft 10 Inch, 25.40 cm) Clinical Height : 177.8 cm Weight Source : Standing scale Weight Entry Format : Travis Clinical Dosing Weight : 88.64 kg Weight, Pounds : 195 lb Body Surface Area (BSA) : 2.07 m2 Body Mass Index : 28 kg/m2 (HI) [place] Body Weight : 72 kg Roxana Brady [...] Roxana Brady RN - 04/12/2020 7:05 EDT [place] Suicide Severity Rating Scale (C-SSRS) CSSRS Past [...] Copy Advance Directive Verified/on Chart : No Roxana Brady RN - 04/12/2020 7:05 EDT General Info Preferred Name : Clint Legal Guardian : No Support Person/Patient Breast Splitter : Yes Support Person/Pt Rep Name : Enriqueta - Contact Password : melanie Support Person/Pt Rep Contact Information : [phone] Want Family/Rep/Phys Notified of Admit : Yes Name/Contact Info Fam/Rep Notified Adm : na Name/Contact Info Physician Notified Adm : Axel Hamlin Emergency Contact #1 : Enriqueta Carrasco Emergency Contact #1 Emergency Contact #1 Relationship : spouse Emergency Contact #2 : na Emergency Contact #2 Phone Number : na Emergency Contact #2 Relationship : na Primary Language : Moldovan Preferred Communication Mode : Verbal Communication Barrier : None Correctional Sergeant Needed : No Roxana Brady RN - [...] Scale Risk Level : 0-24 Low Risk [place] Fall Interventions : Call device within reach, [...] on filedocumented in this encounter Care Teams Wheel Polisher Relationship Specialty Start Date End Date Marielos Amaral APRN [address] [address] PCP - General Nurse Practitioner 08/18/23 documented as of this encounter
--- OUTSIDE RECORDS SUMMARY | 2025-05-16 11:12 | XMS_ITS | Encounter Summary ---
Author Organization [employer] ([place], [place], [place], [place]) Address [address] [place] [address] Care Team Providers Care Chief Learning Officer Name Role Phone Marielos Amaral KAYE Primary Care Provider [phone] Encounter Details Date Type Department Care Team (Late st Contact Info) Description 04/25/2022 Transcribed Document [facility] Radiology [address] [place], [place] [phone] Saba Neal MD [address] [place] [address] [address] [place] [address] Social History Tobacco Use Types Packs/Day Years [...] speak a language other than Guinean at [facility]? Yes 10/30/2024 [...] Other (See Comment) Eliquis: 2.5 mg, Oral, [id number] Flomax: 0.4 mg, Oral, Daily Lokelma: 15 Gram, Oral, 1-Time Metoprolol Succinate ER: 50 mg, Oral, Daily Normal Saline 1,000 mL: 100 mL/Hr, IntraVENous Rocephin: 1 Gram, 100 mL/Hr, IV Piggyback, [id number] Tylenol: 650 mg, Oral, Q4H, PRN: Pain [...] mg tab 2.5 mg 1 Tab, Oral, [id number] atorvastatin 40 mg tab 40 mg 1 Tab, Oral, At Bedtime cefTRIAXone 1 Gram, IV Piggyback, G06RCqu cholecalciferol 1,000 unit tab 1,000 Units 1 [...] list: Medical Atrial fibrillation / SNOMED CT 39856799 / Confirmed CAD - Coronary artery disease / SNOMED CT 5341498224 / Confirmed Cardiomyopathy / SNOMED CT 439730832 / Confirmed Acute cerebrovascular accident (CVA) / SNOMED CT 691112360 / Confirmed History of obstructive sleep apnea / IMO 26574409 / Confirmed HLD - Hyperlipidemia / SNOMED CT 699174391 / Confirmed HTN - Hypertension / SNOMED CT 4416584153 / Confirmed Type 2 diabetes mellitus / SNOMED CT 765165856 / Confirmed, Active Problems (20) Acute cerebrovascular [...] 27.6 \ Radiology Results (Last 48 hours) [id number] -- 04/22/2022 12:30 US Renal Comp (04/23/2022 [...] filedocumented in this encounter Care Teams Chief Learning Officer Relationship Specialty Start Date End Date Marielos Amaral, OIL REFINER [address] [place] [address] PCP - General Nurse Practitioner 08/18/23 documented as of this encounter
--- OUTSIDE RECORDS SUMMARY | 2025-05-16 11:12 | XMS_ITS | Encounter Summary ---
Author Organization [employer] ([place], [place], [place], [place]) Address [address] [place] [address] Care Team Providers Care Director Of Respiratory Therapy Name Role Phone Marielos Amaral KAYE Primary Care Provider Encounter Details Date Type Department Care Team (Late st Contact Info) Description 02/06/2019 Transcribed Document [facility] [place] [address] [place] [address] ProviderHaroldo MD [address] [place] [address] Social History Tobacco Use Types Packs/Day Years [...] : 02/05/2019 23:59 Assisted by, PT : visitor services technician/aide Personal Devices : Personal Devices No [...] FANY FREEMAN, PT - 02/07/2019 9:03 EDT [facility] Goals Stairs LTG Grid Goal #1 Device [...] in this encounter Care Teams Director Of Respiratory Therapy Relationship Specialty Start Date End Date Marielos Amaral APRN [address] [address] PCP - General Nurse Practitioner 08/18/23 documented as of this encounter
--- OUTSIDE RECORDS SUMMARY | 2025-05-16 11:12 | XMS_ITS | Encounter Summary ---
Author Organization [employer] ([place], [place], [place], [place]) Address [address] [place] [address] Care Team Providers Care Cone Classifier Tender Name Role Phone Marielos Amaral PHERESIS NURSE Primary Care Provider Encounter Details Date Type Department Care Team (Late st Contact Info) Description 01/20/[address] [facility] [place] [address] [place] [address] ProviderHaroldo MD [address] [place] [address] Social History Tobacco Use Types Packs/Day Years Used Date Smoking Tobacco: Never Assessed Sex and Gender Information Value Date Recorded Sex Assigned at Not on file Legal Sex Male 3:45 PM CDT Gender Identity Not on file Sexual Orientation Not on file documented as of this encounter Miscellaneous Notes * [employer] Conversion Note - Haroldo ProviderMD - 01/20/2019 2:37 PM CDT [address] [address] ELINA ZACKARY COOK :1950 [...] up with Dr Lopez as needed Where: [address] [place] [address]- Medications What How Much When Instructions Next [...] Document Reviewed: 12/01/2012 ExitCare?? Patient Information ??2015 Glad to Have You. This information is not intended to replace [...] including vitamins, herbs, eye drops, creams, and nkdo-pfw-brpvezs medicines. ???Previous problems you or members of [...] Document Reviewed: 08/25/2013 ExitCare?? Patient Information ??2015 Glad to Have You. This information is not intended to replace [...] including vitamins, herbs, eye drops, creams, and pxjm-vuv-xyrqrxk medicines. ??? Previous problems you or members [...] 07/13/2014 Document Revised: 10/13/2015 Document Reviewed: 07/13/2014 [employer] Interactive Patient Education ?? 2017 Your Last Chance. Emergency Awareness and Preventative Care STROKE is [...] Assistance with quitting is available by contacting 6-062-GAND-NOW. This is a free resource providing counseling, [...] Be sure to sign up for the [facility] patient portal, which gives you 28/04 access to your medical information ??? including these discharge instructions ??? using your computer, smartphone, or tablet. Just go to [place] to get started. Questions? Call . Test Results Laboratory or Other Results This Visit (last charted value for your 01/20/2019 visit) General Chemistry 01/20/19 12:42:00 Glucose POC2: 182 mg/dL -- Normal range between ( 70 and 110 ) Patient Name:ZACKARY ANTOINE I have received this information and was given the opportunity to ask questions. Patient/Urologist Physician Name: Patient/Urologist Physician Signature: Relationship to Patient: Clinician/Hospital Urologist Physician Signature: Date: documented in this encounter Plan of Treatment Not on file documented as of this encounter Visit Diagnoses Not on filedocumented in this encounter Care Teams Cone Classifier Tender Relationship Specialty Start Date End Date Marielos Amaral, PHERESIS NURSE [address] [phone] PCP - General Nurse Practitioner 08/18/23 documented as of this encounter
--- OUTSIDE RECORDS SUMMARY | 2025-05-16 11:13 | XMS_ITS | Encounter Summary ---
Author Organization [employer] ([place], [place], [place], [place]) Address [address] [place] [address] Care Team Providers Care Research Hydrologist Name Role Phone Marielos Amaral KAYE Primary Care Provider Encounter Details Date Type Department Care Team (Late st Contact Info) Description 10/16/2019 Transcribed Document [facility] [place] Medicine [address] [place] [address] ProviderHaroldo MD [address] [place] [address] Social History Tobacco Use Types Packs/Day Years Used Date Smoking Tobacco: Never Assessed Sex and Gender Information Value Date Recorded Sex Assigned at Not on file Legal Sex Male 3:45 PM CDT Gender Identity Not on file Sexual Orientation Not on file documented as of this encounter Miscellaneous Notes * [employer] Conversion Note - Haroldo ProviderMD - 10/16/2019 2:00 AM THEATRE DIRECTOR Appointment Specialist Details Entered On: 10/16/2019 0:45 EST Performed [...] 10/16/2019 0:45 EST Electronically signed by Brittany [facility] Conversion Laboratory Phlebotomist Cerner at 01/24/2023 10:21 AM CDT documented in this encounter Plan of Treatment Not on file documented as of this encounter Visit Diagnoses Not on filedocumented in this encounter Care Teams Research Hydrologist Relationship Specialty Start Date End Date Marielos Amaral, KAYE [address] [phone] PCP - General Nurse Practitioner 08/18/23 documented as of this encounter
--- OUTSIDE RECORDS SUMMARY | 2025-05-16 11:13 | XMS_ITS | Encounter Summary ---
Author Organization [employer] ([place], [place], [place], [place]) Address [address] [place] [address] Care Team Providers Care Lap Polisher Name Role Phone Marielos Amaral KAYE Primary Care Provider [phone] Encounter Details Date Type Department Care Team (Late st Contact Info) Description 10/15/2019 Transcribed Document [facility] [place] [address] [place] [address] ProviderHaroldo MD [address] [place] [address] Social History Tobacco Use Types Packs/Day Years Used Date Smoking Tobacco: Never Assessed Sex and Gender Information Value Date Recorded Sex Assigned at Not on file Legal Sex Male 3:45 PM CDT Gender Identity Not on file Sexual Orientation Not on file documented as of this encounter Miscellaneous Notes * [employer] Conversion Note - Haroldo ProviderMD - 10/15/2019 8:55 AM VENEER REPAIRER MACHINE UM Authorization Entered On: 10/15/2019 8:56 EST Performed On: 10/15/2019 8:55 EST by Mary Haynes Rn-Utilization Review Primary Insurance Authorization Authorization and Policy Numbers : Insurance 1 Health Plan: [employer] Policy Number: [id number] Authorization Number: Insurance Primary Name : [employer] Policy Number: [id number] Authorization Status-Primary : Awaiting callback Reference Number-Primary : [id number] Authorized Service Begin Date-Primary : 10/14/2019 EST Authorization Comments-Primary : clinical faxed per norma for ip auth Historical Authorization Comments-Primary : No Authorization Comments Found Mary Haynes Rn-Utilization Review - 10/15/2019 8:55 EST documented in this encounter Plan of Treatment Not on file documented as of this encounter Visit Diagnoses Not on filedocumented in this encounter Care Teams Lap Polisher Relationship Specialty Start Date End Date Marielos Amaral, BLOW MOLDER [address] [place] [address] PCP - General Nurse Practitioner 08/18/23 documented as of this encounter
--- OUTSIDE RECORDS SUMMARY | 2025-05-16 11:13 | XMS_ITS | Encounter Summary ---
Author Organization [employer] ([place], [place], [place], [place]) Address [address] [place] [address] Care Team Providers Care Ticker Maintainer Name Role Phone AmaralMarlyMarielosgrace RESTREPO Primary Care Provider Encounter Details Date Type Department Care Team (Late st Contact Info) Description 10/15/2019 Transcribed Document [facility] [place] [address] [place] [address] ProviderHaroldo MD [address] [place] [address] Social History Tobacco Use Types Packs/Day Years Used Date Smoking Tobacco: Never Assessed Sex and Gender Information Value Date Recorded Sex Assigned at Not on file Legal Sex Male 3:45 PM CDT Gender Identity Not on file Sexual Orientation Not on file documented as of this encounter Miscellaneous Notes * [employer] Conversion Note - Historical ProviderMD - 10/15/2019 8:30 AM COLD STRIP ROLLER Attempt to Treat Entered On: 10/15/2019 8:38 EST Performed On: 10/15/2019 8:30 EST by JORDYN HART Attempt to Treat Unable to Treat Due To : Patient Unavailable Inability to Treat Comment : Getting a bedside ECHO JORDYN HART - 10/15/2019 8:34 EST Electronically signed by Brittany [facility] Conversion Drum Plater Cerner at 01/24/2023 10:39 AM CDT documented in this encounter Plan of Treatment Not on file documented as of this encounter Visit Diagnoses Not on filedocumented in this encounter Care Teams Ticker Maintainer Relationship Specialty Start Date End Date AmaralMarielos, MOVING PICTURE PRODUCER [address] [place] [address] PCP - General Nurse Practitioner 08/18/23 documented as of this encounter
--- OUTSIDE RECORDS SUMMARY | 2025-05-16 11:13 | XMS_ITS | Encounter Summary ---
Author Organization [employer] ([place], [place], [place], [place]) Address [address] [place] [address] Care Team Providers Care Link Trainer Maintenance Man Name Role Phone Marielos Amaral KAYE Primary Care Provider Encounter Details Date Type Department Care Team (Late st Contact Info) Description 10/15/2019 Transcribed Document [facility] [place] Medicine [address] [place] [address] ProviderHaroldo MD [address] [place] [address] Social History Tobacco Use Types Packs/Day Years Used Date Smoking Tobacco: Never Assessed Sex and Gender Information Value Date Recorded Sex Assigned at Not on file Legal Sex Male 3:45 PM CDT Gender Identity Not on file Sexual Orientation Not on file documented as of this encounter Miscellaneous Notes * [employer]ner Conversion Note - Haroldo ProviderMD - 10/15/2019 8:58 AM FLIGHT CONTROL MANAGER FLOOR LAYER TILE Attempt to Treat Entered On: 10/15/2019 8:58 EST Performed On: 10/15/2019 8:58 EST by BIPIN LEE SLP Attempt to Treat Unable to Treat Due To : Patient Unavailable Inability to Treat Comment : Patient is off unit for test, will follow up later in day. Notification : BIPIN HURLEY, RAMONA - 10/15/2019 8:58 EST Electronically signed by Brittany [facility] Conversion Count Team Clerk Cerner at 01/24/2023 10:45 AM CDT documented in this encounter Plan of Treatment Not on file documented as of this encounter Visit Diagnoses Not on filedocumented in this encounter Care Teams Link Trainer Maintenance Man Relationship Specialty Start Date End Date Marielos Amaral, AUDITOR IN CHARGE [address] [place] [address] PCP - General Nurse Practitioner 08/18/23 documented as of this encounter
--- OUTSIDE RECORDS SUMMARY | 2025-05-16 11:13 | XMS_ITS | Encounter Summary ---
Author Organization [employer] ([place], [place], [place], [place]) Address [address] [place] [address] Care Team Providers Care Dean Of Admissions Name Role Phone Marielos Amaral KAYE Primary Care Provider Encounter Details Date Type Department Care Team (Late st Contact Info) Description 10/15/2019 Transcribed Document [facility] [place] [address] [place] [address] ProviderHaroldo MD [address] [place] [address] Social History Tobacco Use Types Packs/Day Years Used Date Smoking Tobacco: Never Assessed Sex and Gender Information Value Date Recorded Sex Assigned at Not on file Legal Sex Male 3:45 PM CDT Gender Identity Not on file Sexual Orientation Not on file documented as of this encounter Miscellaneous Notes * [employer] Conversion Note - Historical ProviderMD - 10/15/2019 3:40 AM LINUX SYSTEMS ENGINEER Attempt to Treat Entered On: 10/15/2019 7:18 EST Performed On: 10/15/2019 3:40 EST by REJI STERLING Chaplain Attempt to Treat Unable to Treat Due To : Other: Indisposed Inability to Treat Comment : Staff working with [facility] Norberto plan to Follow up later REJI STERLING Chaplain - 10/15/2019 7:16 EST Electronically signed by Brittany [facility] Conversion Poacher Operator Cerner at 01/24/2023 10:32 AM CDT documented in this encounter Plan of Treatment Not on file documented as of this encounter Visit Diagnoses Not on filedocumented in this encounter Care Teams Dean Of Admissions Relationship Specialty Start Date End Date Marielos Amaral, FARMWORKER DAIRY [address] [phone] PCP - General Nurse Practitioner 08/18/23 documented as of this encounter
--- OUTSIDE RECORDS SUMMARY | 2025-05-16 11:13 | XMS_ITS | Encounter Summary ---
Author Organization [employer] ([place], [place], [place], [place]) Address [address] [place] [address] Care Team Providers Care Mult Au Matic Operator Name Role Phone Marieols Amaral APRN Primary Care Provider [phone] Encounter Details Date Type Department Care Team (Late st Contact Info) Description 10/15/2019 Transcribed Document [facility] [place] [address] [place] [address] ProviderHaroldo MD [address] [place] [address] Social History Tobacco Use Types Packs/Day Years Used Date Smoking Tobacco: Never Assessed Sex and Gender Information Value Date Recorded Sex Assigned at Not on file Legal Sex Male 3:45 PM CDT Gender Identity Not on file Sexual Orientation Not on file documented as of this encounter Miscellaneous Notes * [employer]ner Conversion Note - Haroldo ProviderMD - 10/15/2019 6:50 PM CONSTRUCTION ADMINISTRATOR Patient: DEION ANTOINE Age: 68 years Sex: Male : 1950 Associated Diagnoses: None Author: MANUELA MELENDEZ MD-CAR Basic Information PCP: Dr. Axel Hamlin MD Primary Vp Analytics: Dr. Tahira Peterson MD / Dr. Bhanu [...] tablet 5 mg = 1 Tab, Oral, [id number] Eliquis 5 mg oral tablet 5 mg [...] Shortness of Breath Eliquis: 5 mg, Oral, [id number] Flomax: 0.4 mg, Oral, Daily Metoprolol Succinate [...] 5 mg oral tablet: 1 Tab, Oral, [id number], 60 Tab, 0 Refill(s) Toprol-XL 25 mg [...] mg tab 5 mg 1 Tab, Oral, E73LOxv atorvastatin 40 mg tab 40 mg 1 [...] list: All Problems Angina / SNOMED CT 643836152 / Confirmed Coronary artery disease / SNOMED CT 5575502447 / Confirmed Diabetes mellitus type II / SNOMED CT 06227044 / Confirmed GERD - Gastro-esophageal reflux disease / SNOMED CT 3960045554 / Confirmed Heart failure / SNOMED CT 595589744 / Confirmed Heart murmur / SNOMED CT 788793509 / Confirmed History of obstructive sleep apnea / IMO 34951482 / Confirmed Hyperlipidemia / SNOMED CT 31158913 / Confirmed Hypertension / SNOMED CT 95812012 / Confirmed Impaired vision / SNOMED CT 07742990 / Confirmed Enlarged prostate / SNOMED CT 345484103 / Confirmed Migraine / SNOMED CT 62804786 / Confirmed Stented coronary artery / SNOMED CT 3631055042 / Confirmed, Active Problems (13) Angina Coronary [...] Cardiac catheterization. hernia repair. Tonsillectomy. Cholecystectomy; (CPT4 26260). Appendectomy. left arm surgery. Coronary stents. Social [...] flowsheet : Measurements 10/15/2019 5:58 EST Height/Length, TAIWANESE (ft) 5 ft Height/Length TAIWANESE 9 Inch Routine Weight, Kilograms 87.5 kg [...] Normal strength, No deformity. Integumentary: Warm, Dry, [place], Intact, No rash. Neurologic: Alert, Oriented, No [...] 24 Hours) Radiology Results (Last 48 hours) [id number] -- 10/14/2019 17:19 CR Chest 1 Vw [...] from cardiac standpoint. Electronically signed by Brittany, [facility] Conversion Beef Farmer [employer] at 01/24/2023 10:45 AM CDT documented in this encounter Plan of Treatment Not on file documented as of this encounter Visit Diagnoses Not on filedocumented in this encounter Care Teams Mult Au Matic Operator Relationship Specialty Start Date End Date Marielos Amaral, KAYE [address] [phone] PCP - General Nurse Practitioner 08/18/23 documented as of this encounter
--- OUTSIDE RECORDS SUMMARY | 2025-05-16 11:13 | XMS_ITS | Encounter Summary ---
Author Organization [employer] ([place], [place], [place], [place]) Address [address] [address] Care Team Providers Care Public Relations Supervisor Name Role Phone Marielos Amaral KAYE Primary Care Provider Encounter Details Date Type Department Care Team (Late st Contact Info) Description 10/15/2019 Transcribed Document [facility] [place] Family Medicine [address] [place] [address] ProviderHaroldo MD [address] [place] [address] Social History Tobacco Use Types Packs/Day Years Used Date Smoking Tobacco: Never Assessed Sex and Gender Information Value Date Recorded Sex Assigned at Not on file Legal Sex Male 3:45 PM CDT Gender Identity Not on file Sexual Orientation Not on file documented as of this encounter Miscellaneous Notes * Cerner Conversion Note - Haroldo ProviderMD - 10/15/2019 3:31 PM INFLATED PAD BUFFER Final Discharge Planning Entered On: 10/15/2019 15:31 EST Performed On: 10/15/2019 15:31 EST by HARITHA BARRIOS Rn-Insecticide Maker Final Discharge Planning Discharge Arrangements : Patient Post-Acute Information Patient Name: ZACKARY ANTOINE Gender: Male : 52 Age: 68 Years No Post-Acute Placement(s) Listed No Post-Acute Service(s) Listed No [place] Referral(s) Listed Important Medicare Message Reviewed With : Patient Important Medicare Message Reviewed D/T : 10/15/2019 15:20 EST HARITHA BARRIOS, Rn-Insecticide Maker - 10/15/2019 15:31 EST Electronically signed by Brittany [facility] Conversion Student Development Advisor Cerner at 01/24/2023 10:37 AM CDT documented in this encounter Plan of Treatment Not on file documented as of this encounter Visit Diagnoses Not on filedocumented in this encounter Care Teams Public Relations Supervisor Relationship Specialty Start Date End Date Marielos Amaral, INFORMATICS CONSULTANT [address] [place] [address] PCP - General Nurse Practitioner 08/18/23 documented as of this encounter
--- OUTSIDE RECORDS SUMMARY | 2025-05-16 11:13 | XMS_ITS | Encounter Summary ---
Author Organization [employer] ([place], [place], [place], [place]) Address [address] [place] [address] Care Team Providers Care Room Inspector Name Role Phone Marielos Amaral KAYE Primary Care Provider Encounter Details Date Type Department Care Team (Late st Contact Info) Description 10/15/2019 Transcribed Document [facility] [place] [address] [place] [address] ProviderHaroldo MD [address] [place] [address] Social History Tobacco Use Types Packs/Day Years Used Date Smoking Tobacco: Never Assessed Sex and Gender Information Value Date Recorded Sex Assigned at Not on file Legal Sex Male 3:45 PM CDT Gender Identity Not on file Sexual Orientation Not on file documented as of this encounter Miscellaneous Notes * Cerner Conversion Note - Haroldo ProviderMD - 10/15/2019 8:57 AM ECOLOGICAL MODELER UM Authorization Entered On: 10/15/2019 8:57 EST Performed On: 10/15/2019 8:57 EST by Mary Haynes Rn-Utilization Review Primary Insurance Authorization Authorization and Policy Numbers : Insurance 1 Health Plan: [employer] Policy Number: [id number] Authorization Number: Insurance Primary Name : [employer] Policy Number: [id number] Authorization Status-Primary : Awaiting callback Reference Number-Primary : [id number] Authorized Service Begin Date-Primary : 10/14/2019 EST Authorization Comments-Primary : ref# per star notes Historical Authorization Comments-Primary : Comment 1: clinical faxed per norma for ip auth (Mary Haynes, Rn-Utilization Review 10/15/2019 08:55) Mary Haynes, Rn-Utilization Review - 10/15/2019 8:57 EST Electronically signed by [facility], [facility] Conversion Plastic Die Maker Apprentice Cerner at 01/24/2023 10:43 AM CDT documented in this encounter Plan of Treatment Not on file documented as of this encounter Visit Diagnoses Not on filedocumented in this encounter Care Teams Room Inspector Relationship Specialty Start Date End Date Marielos Amaral, IP LITIGATION ASSOCIATE [address] [place] [address] PCP - General Nurse Practitioner 08/18/23 documented as of this encounter
--- OUTSIDE RECORDS SUMMARY | 2025-05-16 11:13 | XMS_ITS | Encounter Summary ---
Author Organization [employer] ([place], [place], [place], [place]) Address [address] [place] [address] Care Team Providers Care Steel Crane Operator Name Role Phone Marielos Amaral KAYE Primary Care Provider Encounter Details Date Type Department Care Team (Late st Contact Info) Description 10/15/2019 Transcribed Document [facility] [place] [address] [place] [address] ProviderHaroldo MD [address] [place] [address] Social History Tobacco Use Types Packs/Day Years Used Date Smoking Tobacco: Never Assessed Sex and Gender Information Value Date Recorded Sex Assigned at Not on file Legal Sex Male 3:45 PM CDT Gender Identity Not on file Sexual Orientation Not on file documented as of this encounter Miscellaneous Notes * Cerner Conversion Note - Haroldo ProviderMD - 10/15/2019 9:32 AM LEG MAN Patient: ZACKARY ANTOINE Age: 68 years Sex: [...] filedocumented in this encounter Care Teams Steel Crane Operator Relationship Specialty Start Date End Date Marielos Amaral APRN [address] [address] PCP - General Nurse Practitioner 08/18/23 documented as of this encounter
--- OUTSIDE RECORDS SUMMARY | 2025-05-16 11:13 | XMS_ITS | Encounter Summary ---
Author Organization [employer] ([place], [place], [place], [place]) Address [address] [place] [address] Care Team Providers Care Senior Procurement Manager Name Role Phone Munir Marielos RESTREPO Primary Care Provider Encounter Details Date Type Department Care Team (Late st Contact Info) Description 04/24/2022 Transcribed Document [facility] [place] Family Medicine [address] [place] [address] ProviderHaroldo MD [address] [place] [address] Social History Tobacco Use Types [...] speak a language other than Nicaraguan at [facility]? Yes 10/30/2024 Do [...] 04/24/2022 13:02 EDT Electronically signed by Brittany [facility] Conversion Digital Operations Analyst Cerner at 01/24/2023 10:35 AM CDT documented in this encounter Plan of Treatment Not on file documented as of this encounter Visit Diagnoses Not on filedocumented in this encounter Care Teams Senior Procurement Manager Relationship Specialty Start Date End Date Marielos Amaral, PROPERTY ECONOMIST [address] [place] [address] PCP - General Nurse Practitioner 08/18/23 documented as of this encounter
--- OUTSIDE RECORDS SUMMARY | 2025-05-16 11:13 | XMS_ITS | Encounter Summary ---
Author Organization [employer] ([place], [place], [place], [place]) Address [address] [place] [address] Care Team Providers Care Sister Superior Name Role Phone Marielos Amaral KAYE Primary Care Provider Encounter Details Date Type Department Care Team (Late st Contact Info) Description 10/15/2019 Transcribed Document [facility] [place] Medicine [address] [place] [address] ProviderHaroldo MD [address] [place] [address] Social History Tobacco Use Types Packs/Day Years Used Date Smoking Tobacco: Never Assessed Sex and Gender Information Value Date Recorded Sex Assigned at Not on file Legal Sex Male 3:45 PM CDT Gender Identity Not on file Sexual Orientation Not on file documented as of this encounter Miscellaneous Notes * [employer] Conversion Note - Haroldo ProviderMD - 10/15/2019 5:00 PM PRECINCT CAPTAIN Chart Check - Review Order Profile Entered On: 10/15/2019 16:17 EST Performed On: 10/15/2019 17:00 EST by Deysi Valdes RN Chart Check Powerplans Initiated/Discontinued as Appropriate : Yes All Active Orders Reviewed : Yes Deysi Valdes RN - 10/15/2019 16:17 EST Electronically signed by Brittany [facility] Conversion Hand Tube Winder Cerner at 01/24/2023 10:39 AM CDT documented in this encounter Plan of Treatment Not on file documented as of this encounter Visit Diagnoses Not on filedocumented in this encounter Care Teams Sister Superior Relationship Specialty Start Date End Date Marielos Amaral, CARE ADVOCATE [address] [place] [address] PCP - General Nurse Practitioner 08/18/23 documented as of this encounter
--- OUTSIDE RECORDS SUMMARY | 2025-05-16 11:13 | XMS_ITS | Encounter Summary ---
Author Organization [employer] ([place], [place], [place], [place]) Address [address] [place] [address] Care Team Providers Care Low Pressure Boiler Tender Name Role Phone Marielos Amaral KAYE Primary Care Provider Encounter Details Date Type Department Care Team (Late st Contact Info) Description 04/24/2022 Transcribed Document [facility] Radiology [address] [place], [place] [id number] Saba Neal MD [address] [place] [address] [address] [place] [address] Social History Tobacco Use Types Packs/Day Years [...] Do you speak a language other than Iranian at [facility]? Yes 10/30/2024 Do you [...] Other (See Comment) Eliquis: 2.5 mg, Oral, [id number] Normal Saline 1,000 mL: 100 mL/Hr, IntraVENous Rocephin: 1 Gram, 100 mL/Hr, IV Piggyback, S71EWuv Tylenol: 650 mg, Oral, Q4H, PRN: Pain [...] mg tab 2.5 mg 1 Tab, Oral, L75USlv atorvastatin 40 mg tab 40 mg 1 Tab, Oral, At Bedtime cefTRIAXone 1 Gram, IV Piggyback, I51MXxv cholecalciferol 1,000 unit tab 1,000 Units 1 [...] list: Medical Atrial fibrillation / SNOMED CT 48241471 / Confirmed CAD - Coronary artery disease / SNOMED CT 5615698343 / Confirmed Cardiomyopathy / SNOMED CT 095402672 / Confirmed Acute cerebrovascular accident (CVA) / SNOMED CT 858730275 / Confirmed History of obstructive sleep apnea / IMO 85302971 / Confirmed HLD - Hyperlipidemia / SNOMED CT 886261455 / Confirmed HTN - Hypertension / SNOMED CT 3449260748 / Confirmed Type 2 diabetes mellitus / SNOMED CT 794825917 / Confirmed, Active Problems (20) Acute cerebrovascular [...] data available Radiology Results (Last 48 hours) [id number] -- 04/22/2022 12:30 CT Head WO (04/22/2022 [...] Start 04/23/22 12:05:00 EDT, 04/23/22 12:05:00 EDT SABA NEAL MD-INT Sodium Chloride 0.9% intravenous solution [...] filedocumented in this encounter Care Teams Low Pressure Boiler Tender Relationship Specialty Start Date End Date Marielos Amaral, COFFEE BREWER [address] [phone] PCP - General Nurse Practitioner 08/18/23 documented as of this encounter
== END 2025-05-13 23:59 | disposition home or self-care (01) ==
LOC: LAB.DROPOF 05-16 10:58
PROVIDERS: PCP Nurse Practitioner Family; Visit Provider Nurse Practitioner Family
DX: E11.69 Type 2 diabetes mellitus with other specified complication (principal); E03.9 Hypothyroidism, unspecified
CPT/HCPCS: 80053; 84443; 84481

== ENCOUNTER 2025-05-14 20:21 | Observation (INO) | payer MEDICARE, SELFPAY ==
--- OUTSIDE RECORDS SUMMARY | 2025-04-14 20:00 | XMS_ITS | Clinical Summary ---
Author Organization Unknown Care Team Providers Care Pin Puller Name Role Phone SOFÍA ARIAS, MADELAINE Unavailable Unavailable KATHI PT, SREEDHAR Unavailable Unavailable ZULAY MOTION PICTURE PROJECTIONIST, KAYLIN Unavailable Unavailable LUCY OT, LUCY Unavailable Unavailable Payers Payer Name Policy Type Policy Number Effective Date Expira tion Date PORFIRIOAUTH [id number] Problems Condition Name Condition Details Condition Category Status Onset Date Resolution Date Last Treatment Date Treating Clinician Comments HEART FAILURE, UNSPECIFIED Active 02-10 00:00: 00 ATHSCL HEART DISEASE OF [place] CORONARY ARTERY W/O ANG PCTRS Active 02-10 [...] Y BYPASS GRAFT Active 10-06 00:00: 00 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 Active 02-10 00:00: 00 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 TS Active 02-10 [...] 2023-10 00:00: 00 03-03 00:00 :00 No [id number] DIURETIC 1 tablet NEEDED 1 tablet NEEDED (route: oral) Med Classific ation: Cardiovas cular Therapy Agents Adult Low Dose Aspirin 81 mg tablet,maria fernanda yed release 03-08 00:00: 00 03-03 00:00 :00 No [id number] BLOOD THINNER 1 tablet DAILY 1 tablet DAILY (route: oral) Med Classific ation: Hematolog ical Agents atorvastati n 20 mg tablet 04-05 00:00: 00 03-03 00:00 :00 No [id number] HYPERLIPIDE CHARLIE 1 tablet BEDTIME 1 tablet BEDTIME (route: oral) Med Classific ation: Cardiovas cular Therapy Agents ferrous sulfate 324 mg (65 mg iron) tablet,maria fernanda yed release 04-05 00:00: 00 Yes [id number] SUPPLEMENT 1 tablet DAILY 1 tablet DAILY (route: oral) Med Classific ation: Electroly te Balance-N utritiona l Products finasteride 5 mg tablet 04-05 00:00: 00 03-03 00:00 :00 No [id number] BPH 1 tablet DAILY 1 tablet DAILY (route: oral) Med Classific ation: Genitouri nary Therapy hydralazine 50 mg tablet 04-05 00:00: 00 11-05 00:00 :00 No [id number] HYPERTENSIO N 1 tablet EVERY 8 HOURS 1 tablet EVERY 8 HOURS (route: oral) Med Classific ation: Cardiovas cular Therapy Agents insulin lispro (U-100) 100 unit/mL subcutaneou s pen 04-05 00:00: 00 03-03 00:00 :00 No [id number] DIABETES 1 unit 3 TIMES DAILY 1 unit 3 TIMES DAILY (route: [facility]) Med Classific ation: Endocrine isosorbide dinitrate 10 mg tablet 04-05 00:00: 00 03-03 00:00 :00 No [id number] HYPERTENSIO N 1 tablet EVERY 8 HOURS 1 tablet EVERY 8 HOURS (route: oral) Med Classific ation: Cardiovas cular Therapy Agents Lantus Solostar U-100 Insulin 100 unit/mL (3 mL[facility] 00:00: 00 Yes [id number] DIABETES 27 unit BEDTIME 27 unit BEDTIME (route: [facility]) Med Classific ation: Endocrine levothyroxi ne 75 mcg tablet 04-05 00:00: 00 03-03 00:00 :00 No [id number] HYPOTHYROID 1 tablet DAILY 1 tablet DAILY (route: oral) Med Classific ation: Endocrine melatonin 3 mg tablet 04-05 00:00: 00 Yes [id number] INSOMNIA 1 tablet BEDTIME 1 tablet BEDTIME (route: oral) Med Classific ation: Central Nervous System Agents Arthritis Pain Relief (acetaminop hen) ER 650 mg tablet,exte nd release 11-03 00:00: 03-03 00:00 :00 No [id number] PAIN 1 tablet EVERY 8 HOURS 1 tablet EVERY 8 HOURS (route: oral) Med Classific ation: Analgesic , Anti-infl ammatory or Antipyret ic carvedilol 3.125 mg tablet 11-03 00:00: 00 03-03 00:00 :00 No [id number] CHF 1 tablet 2 TIMES DAILY 1 tablet 2 TIMES DAILY (route: oral) Med Classific ation: Cardiovas cular Therapy Agents cholecalcif vaibhav (vitamin D3) 1,250 mcg (50,000 unit) tablet 11-03 00:00: 00 Yes [id number] SUPPLEMENT 1 tablet DAILY 1 tablet DAILY (route: oral) Med Classific ation: Electroly te Balance-N utritiona l Products clopidogrel 75 mg tablet 11-03 00:00: 00 Yes [id number] BLOOD THINNER 1 tablet DAILY 1 tablet DAILY (route: oral) Med Classific ation: Hematolog ical Agents Jardiance 10 mg tablet 11-03 00:00: 00 03-03 00:00 :00 No [id number] DIABETES 1 tablet DAILY 1 tablet DAILY (route: oral) Med Classific ation: Endocrine omeprazole 40 mg capsule,del ayed release 11-03 00:00: 00 Yes [id number] GI 1 capsule DAILY 1 capsule DAILY (route: oral) Med Classific ation: Gastroint estinal Therapy Agents atorvastati n 40 mg tablet 02-22 00:00: 00 Yes [id number] CHOLESTEROL 1 tablet BEDTIME 1 tablet BEDTIME (route: oral) Med Classific ation: Cardiovas cular Therapy Agents acetaminoph en 500 mg tablet 03-03 00:00: 00 Yes [id number] PAIN 1 tablet EVERY 6 HOURS 1 tablet EVERY 6 HOURS (route: oral) Med Classific ation: Analgesic , Anti-infl ammatory or Antipyret ic amiodarone 200 mg tablet 03-03 00:00: 00 Yes [id number] BLOOD PRESSURE 1 tablet 2 TIMES DAILY 1 tablet 2 TIMES DAILY (route: oral) Med Classific ation: Cardiovas cular Therapy Agents bumetanide 2 mg tablet 03-03 00:00: 00 Yes [id number] CHF 1 tablet 2 TIMES DAILY 1 tablet 2 TIMES DAILY (route: oral) Med Classific ation: Cardiovas cular Therapy Agents Humalog KwikPen (U-100) Insulin 100 unit/mL subcutaneou s 03-03 00:00: 00 Yes [id number] T2DM 5 unit 2 TIMES DAILY 5 unit 2 TIMES DAILY (route: [facility]) Med Classific ation: Endocrine hydralazine 10 mg tablet 03-03 00:00: 00 Yes [id number] BLOOD PRESSURE 2 tablet 3 TIMES DAILY 2 tablet 3 TIMES DAILY (route: oral) Med Classific ation: Cardiovas cular Therapy Agents isosorbide dinitrate 20 mg tablet 03-03 00:00: 00 Yes [id number] BLOOD PRESSURE 1 tablet 3 TIMES DAILY 1 tablet 3 TIMES DAILY (route: oral) Med Classific ation: Cardiovas cular Therapy Agents levothyroxi ne 88 mcg tablet 03-03 00:00: 00 Yes [id number] THYROID 1 tablet DAILY 1 tablet DAILY (route: oral) Med Classific ation: Endocrine Xarelto 15 mg tablet 03-03 00:00: 00 Yes [id number] BLOOD THINNER 1 tablet DAILY 1 tablet [...] TO EVALUATE, OBSERVE / ASSESS, AND MONITOR, MOTION PICTURE PROJECTIONIST TO OBSERVE AND MONITOR, PROVIDE SKILLED THERAPEUTIC INTERVENTION, ACTIVITY, EDUCATION, AND TRAINING TO ADDRESS; [code = AGENCY MAY PERFORM A RESUMPTION OF CARE VISIT FOLLOWING ANY HOSPITAL ADMISSION. PT TO EVALUATE, OBSERVE / ASSESS, AND MONITOR, MOTION PICTURE PROJECTIONIST TO OBSERVE AND MONITOR, PROVIDE SKILLED THERAPEUTIC INTERVENTION, ACTIVITY, EDUCATION, AND TRAINING TO ADDRESS;] Future Scheduled Test THERAPEUTI C EXERCISES AND ESTABLISHING A HOME EXERCISE PROGRAM (PT/MOTION PICTURE PROJECTIONIST) [code = THERAPEUTIC EXERCISES AND ESTABLISHING A HOME EXERCISE PROGRAM (PT/MOTION PICTURE PROJECTIONIST)] Future Scheduled Test NEUROMUSCU LAR RE-EDUCATION / BALANCE / POSTURAL CONTROL (PT) [code = NEUROMUSCULAR RE-EDUCATION / BALANCE / POSTURAL CONTROL (PT)] Future Scheduled Test PT/MOTION PICTURE PROJECTIONIST TO PROVIDE GAIT TRAINING FOR IMPROVED MOBILITY AND /OR TO NORMALIZE GAIT PATTERN [code = PT/MOTION PICTURE PROJECTIONIST TO PROVIDE GAIT TRAINING FOR IMPROVED MOBILITY AND /OR TO NORMALIZE GAIT PATTERN] Future Scheduled Test SIT TO/FRO M STAND TRANSFERS (PT/MOTION PICTURE PROJECTIONIST) [code = SIT TO/FROM STAND TRANSFERS (PT/MOTION PICTURE PROJECTIONIST)] Future Scheduled Test PT/MOTION PICTURE PROJECTIONIST TO IDENTIFY FALL RISK FACTORS; EDUCATE THE PATIENT/CAREGIVER ON WAYS TO REDUCE FALL RISK FACTORS AND ESTABLISH HOME EXERCISE PROGRAM TO MINIMIZE FALL RISK. MAY TEACH THE PATIENT FLOOR RECOVERY WHEN CLINICALLY APPROPRIATE [code = PT/MOTION PICTURE PROJECTIONIST TO IDENTIFY FALL RISK FACTORS; EDUCATE THE PATIENT/CAREGIVER ON WAYS TO REDUCE FALL RISK FACTORS AND ESTABLISH HOME EXERCISE PROGRAM TO MINIMIZE FALL RISK. MAY TEACH THE PATIENT FLOOR RECOVERY WHEN CLINICALLY APPROPRIATE] Future Scheduled Test PT / MOTION PICTURE PROJECTIONIST T O INSTRUCT PATIENT/CAREGIVER ON RISK FOR HOSPITALIZATION/EMERGENCY ROOM VISITS, TEACH SIGNS AND SYMPTOMS THAT PUT PATIENT AT RISK, WHEN TO NOTIFY NURSE/PHYSICIAN OF COMPLICATIONS/DECLINE, AND WHEN TO CALL 911. [code = PT / MOTION PICTURE PROJECTIONIST TO INSTRUCT PATIENT/CAREGIVER ON RISK FOR HOSPITALIZATION/EMERGENCY ROOM VISITS, TEACH SIGNS AND SYMPTOMS THAT PUT PATIENT AT RISK, WHEN TO NOTIFY NURSE/PHYSICIAN OF COMPLICATIONS/DECLINE, AND WHEN TO CALL 911.] Future Scheduled Test PT TO ASSE SS / MOTION PICTURE PROJECTIONIST TO MONITOR CARDIO/RESPIRATORY SYSTEM; AND NOTIFY THE PHYSICIAN AND/OR THE RN CLINICAL BRIDGE GANG WORKER FOR PHYSICIAN NOTIFICATION FOR EARLY SIGNS AND SYMPTOMS OF EXACERBATION OR DETERIORATION. [code = PT TO ASSESS / MOTION PICTURE PROJECTIONIST TO MONITOR CARDIO/RESPIRATORY SYSTEM; AND NOTIFY THE PHYSICIAN AND/OR THE RN CLINICAL BRIDGE GANG WORKER FOR PHYSICIAN NOTIFICATION FOR EARLY SIGNS AND SYMPTOMS OF EXACERBATION OR DETERIORATION.] Future Scheduled Test PT / MOTION PICTURE PROJECTIONIST T O MONITOR AND EDUCATE ON OXYGEN SATURATION DURING ADLS/IADLS, NOTIFY PHYSICIAN AND/OR THE RN CLINICAL BRIDGE GANG WORKER FOR PHYSICIAN NOTIFICATION AND IF O2 SATS BELOW PHYSICIAN ORDERED PARAMETERS AFTER 10 MIN OF REST [code = PT / MOTION PICTURE PROJECTIONIST TO MONITOR AND EDUCATE ON OXYGEN SATURATION DURING ADLS/IADLS, NOTIFY PHYSICIAN AND/OR THE RN CLINICAL BRIDGE GANG WORKER FOR PHYSICIAN NOTIFICATION AND IF O2 SATS BELOW PHYSICIAN ORDERED PARAMETERS AFTER 10 MIN OF REST] Future Scheduled Test SKILLED NU RSING TO EVALUATE FOR PATHOLOGY MANAGEMENT [code = CORRECTION TO EVALUATE FOR PATHOLOGY MANAGEMENT ] Goal [...] End Date/Time Encounter Type Admission Type Attending [facility] Care Department Encounter ID Discharge Date Discharge Status Discharge Condition Discharge Reason Percent Goals Met 2025-03-03 00:00:00 2025-04-15 00:00:00 Outpatient SREEDHAR ANAND [facility] [id number] 2025-04-15 00:00:00 DISCHARGE TO HOME OR SELF CARE INDEPENDEN T WITH USE OF ASSISTIVE DEVICE HH - OTHER (PROVIDE DETAILS IN COORD NOTE) 100.00
--- OUTSIDE RECORDS SUMMARY | 2025-04-14 20:00 | XMS_ITS | Clinical Summary ---
Author Organization Unknown Care Team Providers Care Rn Delivery Name Role Phone SOFÍA ARIAS, MADELAINE Unavailable Unavailable KATHI PT, SREEDHAR Unavailable Unavailable ZULAY SKATES OPERATOR, KAYLIN Unavailable Unavailable LUCY OT, LUCY Unavailable Unavailable Payers Payer Name Policy Type Policy Number Effective Date Expira tion Date PORFIRIOAUTH [id number] Problems Condition Name Condition Details Condition Category Status Onset Date Resolution Date Last Treatment Date Treating Clinician Comments HEART FAILURE, UNSPECIFIED Active 02-10 00:00: 00 ATHSCL HEART DISEASE OF [place] CORONARY ARTERY W/O ANG PCTRS Active 02-10 [...] Y BYPASS GRAFT Active 10-06 00:00: 00 FDC (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) 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 OF 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 Active 02-10 00:00: 00 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 Active 02-10 [...] 2023-10 00:00: 00 03-03 00:00 :00 No [id number] DIURETIC 1 tablet NEEDED 1 tablet NEEDED (route: oral) Med Classific ation: Cardiovas cular Therapy Agents Adult Low Dose Aspirin 81 mg tablet,maria fernanda yed release 03-08 00:00: 00 03-03 00:00 :00 No [id number] BLOOD THINNER 1 tablet DAILY 1 tablet DAILY (route: oral) Med Classific ation: Hematolog ical Agents atorvastati n 20 mg tablet 04-05 00:00: 00 03-03 00:00 :00 No [id number] HYPERLIPIDE CHARLIE 1 tablet BEDTIME 1 tablet BEDTIME (route: oral) Med Classific ation: Cardiovas cular Therapy Agents ferrous sulfate 324 mg (65 mg iron) tablet,marai fernanda yed release 04-05 00:00: 00 Yes [id number] SUPPLEMENT 1 tablet DAILY 1 tablet DAILY (route: oral) Med Classific ation: Electroly te Balance-N utritiona l Products finasteride 5 mg tablet 04-05 00:00: 00 03-03 00:00 :00 No [id number] BPH 1 tablet DAILY 1 tablet DAILY (route: oral) Med Classific ation: Genitouri nary Therapy hydralazine 50 mg tablet 04-05 00:00: 00 11-05 00:00 :00 No [id number] HYPERTENSIO N 1 tablet EVERY 8 HOURS 1 tablet EVERY 8 HOURS (route: oral) Med Classific ation: Cardiovas cular Therapy Agents insulin lispro (U-100) 100 unit/mL subcutaneou s pen 04-05 00:00: 00 03-03 00:00 :00 No [id number] DIABETES 1 unit 3 TIMES DAILY 1 unit 3 TIMES DAILY (route: [facility]) Med Classific ation: Endocrine isosorbide dinitrate 10 mg tablet 04-05 00:00: 00 03-03 00:00 :00 No [id number] HYPERTENSIO N 1 tablet EVERY 8 HOURS 1 tablet EVERY 8 HOURS (route: oral) Med Classific ation: Cardiovas cular Therapy Agents Lantus Solostar U-100 Insulin 100 unit[facility]mL (3 mL[facility] 04-[facility] 00:00: 00 Yes [id number] DIABETES 27 unit BEDTIME 27 unit BEDTIME (route: [facility]) Med Classific ation: Endocrine levothyroxi ne 75 mcg tablet 04-05 00:00: 00 03-03 00:00 :00 No [id number] HYPOTHYROID 1 tablet DAILY 1 tablet DAILY (route: oral) Med Classific ation: Endocrine melatonin 3 mg tablet 04-05 00:00: 00 Yes [id number] INSOMNIA 1 tablet BEDTIME 1 tablet BEDTIME (route: oral) Med Classific ation: Central Nervous System Agents Arthritis Pain Relief (acetaminop hen) ER 650 mg tablet,exte nd release 11-03 00:00: 03-03 00:00 :00 No [id number] PAIN 1 tablet EVERY 8 HOURS 1 tablet EVERY 8 HOURS (route: oral) Med Classific ation: Analgesic , Anti-infl ammatory or Antipyret ic carvedilol 3.125 mg tablet 11-03 00:00: 00 03-03 00:00 :00 No [id number] CHF 1 tablet 2 TIMES DAILY 1 tablet 2 TIMES DAILY (route: oral) Med Classific ation: Cardiovas cular Therapy Agents cholecalcif vaibhav (vitamin D3) 1,250 mcg (50,000 unit) tablet 11-03 00:00: 00 Yes [id number] SUPPLEMENT 1 tablet DAILY 1 tablet DAILY (route: oral) Med Classific ation: Electroly te Balance-N utritiona l Products clopidogrel 75 mg tablet 11-03 00:00: 00 Yes [id number] BLOOD THINNER 1 tablet DAILY 1 tablet DAILY (route: oral) Med Classific ation: Hematolog ical Agents Jardiance 10 mg tablet 11-03 00:00: 00 03-03 00:00 :00 No [id number] DIABETES 1 tablet DAILY 1 tablet DAILY (route: oral) Med Classific ation: Endocrine omeprazole 40 mg capsule,del ayed release 11-03 00:00: 00 Yes [id number] GI 1 capsule DAILY 1 capsule DAILY (route: oral) Med Classific ation: Gastroint estinal Therapy Agents atorvastati n 40 mg tablet 02-22 00:00: 00 Yes [id number] CHOLESTEROL 1 tablet BEDTIME 1 tablet BEDTIME (route: oral) Med Classific ation: Cardiovas cular Therapy Agents acetaminoph en 500 mg tablet 03-03 00:00: 00 Yes [id number] PAIN 1 tablet EVERY 6 HOURS 1 tablet EVERY 6 HOURS (route: oral) Med Classific ation: Analgesic , Anti-infl ammatory or Antipyret ic amiodarone 200 mg tablet 03-03 00:00: 00 Yes [id number] BLOOD PRESSURE 1 tablet 2 TIMES DAILY 1 tablet 2 TIMES DAILY (route: oral) Med Classific ation: Cardiovas cular Therapy Agents bumetanide 2 mg tablet 03-03 00:00: 00 Yes [id number] CHF 1 tablet 2 TIMES DAILY 1 tablet 2 TIMES DAILY (route: oral) Med Classific ation: Cardiovas cular Therapy Agents Humalog KwikPen (U-100) Insulin 100 unit/mL subcutaneou s 03-03 00:00: 00 Yes [id number] T2DM 5 unit 2 TIMES DAILY 5 unit 2 TIMES DAILY (route: [facility]) Med Classific ation: Endocrine hydralazine 10 mg tablet 03-03 00:00: 00 Yes [id number] BLOOD PRESSURE 2 tablet 3 TIMES DAILY 2 tablet 3 TIMES DAILY (route: oral) Med Classific ation: Cardiovas cular Therapy Agents isosorbide dinitrate 20 mg tablet 03-03 00:00: 00 Yes [id number] BLOOD PRESSURE 1 tablet 3 TIMES DAILY 1 tablet 3 TIMES DAILY (route: oral) Med Classific ation: Cardiovas cular Therapy Agents levothyroxi ne 88 mcg tablet 03-03 00:00: 00 Yes [id number] THYROID 1 tablet DAILY 1 tablet DAILY (route: oral) Med Classific ation: Endocrine Xarelto 15 mg tablet 03-03 00:00: 00 Yes [id number] BLOOD THINNER 1 tablet DAILY 1 tablet [...] TO EVALUATE, OBSERVE / ASSESS, AND MONITOR, SKATES OPERATOR TO OBSERVE AND MONITOR, PROVIDE SKILLED THERAPEUTIC INTERVENTION, ACTIVITY, EDUCATION, AND TRAINING TO ADDRESS; [code = AGENCY MAY PERFORM A RESUMPTION OF CARE VISIT FOLLOWING ANY HOSPITAL ADMISSION. PT TO EVALUATE, OBSERVE / ASSESS, AND MONITOR, SKATES OPERATOR TO OBSERVE AND MONITOR, PROVIDE SKILLED THERAPEUTIC INTERVENTION, ACTIVITY, EDUCATION, AND TRAINING TO ADDRESS;] Future Scheduled Test THERAPEUTI C EXERCISES AND ESTABLISHING A HOME EXERCISE PROGRAM (PT/SKATES OPERATOR) [code = THERAPEUTIC EXERCISES AND ESTABLISHING A HOME EXERCISE PROGRAM (PT/SKATES OPERATOR)] Future Scheduled Test NEUROMUSCU LAR RE-EDUCATION / BALANCE / POSTURAL CONTROL (PT) [code = NEUROMUSCULAR RE-EDUCATION / BALANCE / POSTURAL CONTROL (PT)] Future Scheduled Test PT/SKATES OPERATOR TO PROVIDE GAIT TRAINING FOR IMPROVED MOBILITY AND /OR TO NORMALIZE GAIT PATTERN [code = PT/SKATES OPERATOR TO PROVIDE GAIT TRAINING FOR IMPROVED MOBILITY AND /OR TO NORMALIZE GAIT PATTERN] Future Scheduled Test SIT TO/FRO M STAND TRANSFERS (PT/SKATES OPERATOR) [code = SIT TO/FROM STAND TRANSFERS (PT/SKATES OPERATOR)] Future Scheduled Test PT/SKATES OPERATOR TO IDENTIFY FALL RISK FACTORS; EDUCATE THE PATIENT/CAREGIVER ON WAYS TO REDUCE FALL RISK FACTORS AND ESTABLISH HOME EXERCISE PROGRAM TO MINIMIZE FALL RISK. MAY TEACH THE PATIENT FLOOR RECOVERY WHEN CLINICALLY APPROPRIATE [code = PT/SKATES OPERATOR TO IDENTIFY FALL RISK FACTORS; EDUCATE THE PATIENT/CAREGIVER ON WAYS TO REDUCE FALL RISK FACTORS AND ESTABLISH HOME EXERCISE PROGRAM TO MINIMIZE FALL RISK. MAY TEACH THE PATIENT FLOOR RECOVERY WHEN CLINICALLY APPROPRIATE] Future Scheduled Test PT / SKATES OPERATOR T O INSTRUCT PATIENT/CAREGIVER ON RISK FOR HOSPITALIZATION/EMERGENCY ROOM VISITS, TEACH SIGNS AND SYMPTOMS THAT PUT PATIENT AT RISK, WHEN TO NOTIFY NURSE/PHYSICIAN OF COMPLICATIONS/DECLINE, AND WHEN TO CALL 911. [code = PT / SKATES OPERATOR TO INSTRUCT PATIENT/CAREGIVER ON RISK FOR HOSPITALIZATION/EMERGENCY ROOM VISITS, TEACH SIGNS AND SYMPTOMS THAT PUT PATIENT AT RISK, WHEN TO NOTIFY NURSE/PHYSICIAN OF COMPLICATIONS/DECLINE, AND WHEN TO CALL 911.] Future Scheduled Test PT TO ASSE SS / SKATES OPERATOR TO MONITOR CARDIO/RESPIRATORY SYSTEM; AND NOTIFY THE PHYSICIAN AND/OR THE RN CLINICAL MILK RECEIVER FOR PHYSICIAN NOTIFICATION FOR EARLY SIGNS AND SYMPTOMS OF EXACERBATION OR DETERIORATION. [code = PT TO ASSESS / SKATES OPERATOR TO MONITOR CARDIO/RESPIRATORY SYSTEM; AND NOTIFY THE PHYSICIAN AND/OR THE RN CLINICAL MILK RECEIVER FOR PHYSICIAN NOTIFICATION FOR EARLY SIGNS AND SYMPTOMS OF EXACERBATION OR DETERIORATION.] Future Scheduled Test PT / SKATES OPERATOR T O MONITOR AND EDUCATE ON OXYGEN SATURATION DURING ADLS/IADLS, NOTIFY PHYSICIAN AND/OR THE RN CLINICAL MILK RECEIVER FOR PHYSICIAN NOTIFICATION AND IF O2 SATS BELOW PHYSICIAN ORDERED PARAMETERS AFTER 10 MIN OF REST [code = PT / SKATES OPERATOR TO MONITOR AND EDUCATE ON OXYGEN SATURATION DURING ADLS/IADLS, NOTIFY PHYSICIAN AND/OR THE RN CLINICAL MILK RECEIVER FOR PHYSICIAN NOTIFICATION AND IF O2 SATS BELOW PHYSICIAN ORDERED PARAMETERS AFTER 10 MIN OF REST] Future Scheduled Test SKILLED NU RSING TO EVALUATE FOR PATHOLOGY MANAGEMENT [code = PRISON TO EVALUATE FOR PATHOLOGY MANAGEMENT ] Goal [...] End Date/Time Encounter Type Admission Type Attending [facility] Care Department Encounter ID Discharge Date Discharge Status Discharge Condition Discharge Reason Percent Goals Met 2025-03-03 00:00:00 2025-04-15 00:00:00 Outpatient SREEDHAR ANAND [facility] [id number] 2025-04-15 00:00:00 DISCHARGE TO HOME OR SELF CARE INDEPENDEN T WITH USE OF ASSISTIVE DEVICE HH - OTHER (PROVIDE DETAILS IN COORD NOTE) 100.00
--- NOTE | 2025-05-14 20:30 | PC.NURSE ---
Checked pt's glucose read high, Charge nurse and MD Hahn notified
[2025-05-14 20:31] VITALS: BP 156/84; PULSE 80; RESP 18; TEMP 36.6; O2SAT 100; BMI 26.2
--- OUTSIDE RECORDS SUMMARY | 2025-05-14 20:31 | XMS_ITS | Encounter Summary ---
Author Organization [employer] ([place], [place], [place], [place]) Address [address] [place] [address] Care Team Providers Care Art Conservator Name Role Phone Munir Marielos RESTREPO Primary Care Provider Encounter Details Date Type Department Care Team (Late st Contact Info) Description 04/23/2022 Transcribed Document [facility] [place] [address] [place] [address] ProviderHaroldo MD [address] [place] [address] Social History Tobacco Use Types Packs/Day Years Used Date Smoking Tobacco: Never Assessed Utilities Answer Date Recorded In the past 12 months, has t he electric, gas, oil, or water company threatened to shut off services in your home? No 10/30/2024 Interpersonal Safety Answer Date Record ed How often does anyone, zehra harvey family and friends, physically hurt you? Never 10/30/2024 How often does anyone, zehra harvey family and friends, insult or talk down to you? Never 10/30/2024 How often does anyone, zehra harvey family and friends, threaten you with harm? Never 10/30/2024 How often does anyone, zehra harvey family and friends, scream or curse at you? Never 10/30/2024 Housing Stability Answer Date Recorded What is your living situation today? I have a [address] [place] place to live 10/30/[address] you li ve. Do you have problems with any of the following? None of the above 10/30/2024 Food Insecurity Answer Date Recorded Within the past 12 months, y ou worried that your food would run out before you got money to buy more. Never true 10/30/2024 Within the past 12 months, t he food you bought just didn't last and you didn't have money to get more. Never true 10/30/2024 Transportation Needs Answer Date Record ed In the past 12 months, has l ack of reliable transportation kept you from medical appointments, meetings, work or from getting things needed for daily living? No 10/30/2024 Financial Resource Strain Answer Date R ecorded How hard is it for you to pa y for the very basics like food, housing, medical care, and heating? Would you say it is: Not hard at all 10/30/2024 Employment Answer Date Recorded Do you want help finding or keeping work or a job? I do not need or want help 10/30/2024 Family and Community Support Answer Efraín e Recorded If for any reason you need h elp with day-to-day activities such as bathing, preparing meals, shopping, managing finances, etc., do you get the help you need? I don't need any help 10/30/2024 Feeling Lonely or Isolated 0 10/30 Educational Attainment Answer Date Angel Luis rded Do you speak a language other than Guamanian at [facility]? Yes 10/30/2024 Do you want help with school or training? For example, starting or completing job training or getting a high school diploma, GED or equivalent. No 10/30/2024 Physical Activity Answer Date Recorded Number of minutes of exercise per week 60 10/30/2024 Self Management Answer Date Recorded Because of a physical, menta l, or emotional condition, do you have serious difficulty concentrating, remembering, or making decisions? (5 years or older) No 10/30/2024 Because of a physical, menta l, or emotional condition, do you have difficulty doing errands alone such as visiting a doctor's office or shopping? (15 years or older) No 10/30/2024 Substance Use Answer Date Recorded How many times in the past y ear have you used prescription drugs for non-medical reasons? Never 10/30/2024 How many times in the past year have you used [place] legal drugs? Never 10/30/2024 Mental Health Answer Date Recorded Calculation of above two rows 0 Sex and Gender Information Value Date Recorded Sex Assigned at Not on file Legal Sex Male 3:45 PM CDT Gender Identity Not on file Sexual Orientation Not on file documented as of this encounter Miscellaneous Notes * Cerner Conversion Note - Historical Provider, - 04/23/2022 6:43 PM CDT UM Authorization Entered On: 04/23/2022 18:43 EDT Performed On: 04/23/2022 18:43 EDT by KRISTINA GÓMEZ, LUIS Primary Insurance Authorization Authorization and Policy Numbers : Insurance 1 Health Plan: [employer] MEDICARE REPL Policy Number: [id number] Authorization Number: Insurance Primary Name : [employer] MEDICARE REPL Policy Number: [id number] Authorized Service Begin Date-Primary : 04/22/2022 EDT Historical Authorization Comments-Primary : No Authorization Comments Found KRISTINA GÓMEZ, LUIS - 04/23/2022 18:43 EDT documented in this encounter Plan of Treatment Not on file documented as of this encounter Visit Diagnoses Not on filedocumented in this encounter Care Teams Art Conservator Relationship Specialty Start Date End Date Marielos Amaral TEACHER PRIVATE [address] [address] PCP - General Nurse Practitioner 08/18/23 documented as of this encounter
--- OUTSIDE RECORDS SUMMARY | 2025-05-14 20:31 | XMS_ITS | Encounter Summary ---
Author Organization [employer] ([place], [place], [place], [place]) Address [address] [place] [address] Care Team Providers Care Concrete Craftsman Name Role Phone Marielos Amaral KAYE Primary Care Provider Encounter Details Date Type Department Care Team (Late st Contact Info) Description 10/15/2019 Transcribed Document [facility] [place] Family Medicine [address] [place] [address] ProviderHaroldo MD [address] [place] [address] Social History Tobacco Use Types Packs/Day Years Used Date Smoking Tobacco: Never Assessed Sex and Gender Information Value Date Recorded Sex Assigned at Not on file Legal Sex Male 3:45 PM CDT Gender Identity Not on file Sexual Orientation Not on file documented as of this encounter Miscellaneous Notes * Cerner Conversion Note - Haroldo ProviderMD - 10/15/2019 5:00 AM VMWARE ENGINEER Chart Check - Review Order Profile Entered On: 10/15/2019 5:49 EST Performed On: 10/15/2019 5:00 EST by Kristofer Barr Rn Chart Check Powerplans Initiated/Discontinued as Appropriate : Yes All Active Orders Reviewed : Yes Kristofer Barr Rn - 10/15/2019 5:49 EST Electronically signed by Brittany [facility] Conversion Grinder Hand Cerner at 01/24/2023 10:21 AM CDT documented in this encounter Plan of Treatment Not on file documented as of this encounter Visit Diagnoses Not on filedocumented in this encounter Care Teams Concrete Craftsman Relationship Specialty Start Date End Date Marielos Amaral, BOOKS SALESPERSON [address] [place] [address] PCP - General Nurse Practitioner 08/18/23 documented as of this encounter
--- OUTSIDE RECORDS SUMMARY | 2025-05-14 20:31 | XMS_ITS | Encounter Summary ---
Author Organization [employer] ([place], [place], [place], [place]) Address [address] [place] [address] Care Team Providers Care Cook Manager Name Role Phone Munir Marielos RESTREPO Primary Care Provider Encounter Details Date Type Department Care Team (Late st Contact Info) Description 04/23/2022 Transcribed Document [facility] [place] Family Medicine [address] [place] [address] ProviderHaroldo MD [address] [place] [address] Social History Tobacco Use Types [...] Do you speak a language other than Guinean at [facility]? Yes 10/30/2024 Do you want help with [...] Conversion Note - Historical Provider, - 04/23/2022 6:56 PM CDT UM Authorization Entered On: 04/23/2022 18:58 EDT Performed On: 04/23/2022 18:56 EDT by KRISTINA GÓMEZ RN Primary Insurance Authorization Authorization and Policy Numbers : Insurance 1 Health Plan: [employer] MEDIC[employer] REPL Policy Number: [id number] Authorization Number: Insurance Primary Name : [employer] MED[employer] REPL Policy Number: [id number] Reference Number-Primary : [id number] Authorized Service Begin Date-Primary : 04/22/2022 EDT Authorization Comments-Primary : [facility] Ref# [id number] received;clinicals attached. Historical Authorization Comments-Primary : No Authorization Comments Found KRISTINA GÓMEZ RN - 04/23/2022 18:56 EDT documented in this encounter Plan of Treatment Not on file documented as of this encounter Visit Diagnoses Not on filedocumented in this encounter Care Teams Cook Manager Relationship Specialty Start Date End Date Marielos Amaral, TOLL BRIDGE ATTENDANT [address] [id number] PCP - General Nurse Practitioner 08/18/23 documented as of this encounter
--- OUTSIDE RECORDS SUMMARY | 2025-05-14 20:31 | XMS_ITS | Encounter Summary ---
Author Organization [employer] ([place], [place], [place], [place]) Address [address] [place] [address] Care Team Providers Care Vaccine Specialist Name Role Phone Marielos Amaral KAYE Primary Care Provider [phone] Encounter Details Date Type Department Care Team (Late st Contact Info) Description 10/15/[address] [facility] [place] Family Medicine [address] [place] [address] ProviderHaroldo MD [address] [place] [address] Social History Tobacco Use Types Packs/Day Years Used Date Smoking Tobacco: Never Assessed Sex and Gender Information Value Date Recorded Sex Assigned at Not on file Legal Sex Male 3:45 PM CDT Gender Identity Not on file Sexual Orientation Not on file documented as of this encounter Miscellaneous Notes * Cerner Conversion Note - Haroldo ProviderMD - 10/15/2019 3:30 PM LEHR TENDER On Going Discharge Planning Entered On: 10/15/2019 15:31 EST Performed On: 10/15/2019 15:30 EST by HARITHA BARRIOS Rn-Agriculture ProfessorCollections Associate Progress Note Discharge Arrangements : Patient Post-Acute Information Patient Name: ZACKARY ANTOINE Gender: Male : [birth year] Age: 68 Years No Post-Acute Placement(s) Listed No Post-Acute Service(s) Listed No [place] Referral(s) Listed Discharge Options Discussed with Patient : Discharge transportation, DME, Home Health Barriers to Discharge Identified : Clinical Condition of Patient Barriers to Discharge Unresolved : Clinical Condition of Patient Is the Patient Meeting Medical Necessity : Yes HARITHA BARRIOS Rn-Agriculture Professor - 10/15/2019 15:30 EST Narrative Progress Note Narrative Progress Note : Ongoing d/c planning, anticipate d/c home with spouse Enriqueta [phone]; [phone]. HARITHA BARRIOS Rn-Agriculture Professor - 10/15/2019 15:30 EST Electronically signed by Brittany [facility] Conversion Faculty Criminal Justice Cerner at 01/24/2023 10:29 AM CDT documented in this encounter Plan of Treatment Not on file documented as of this encounter Visit Diagnoses Not on filedocumented in this encounter Care Teams Vaccine Specialist Relationship Specialty Start Date End Date Marielos Amaral, KAYE [address] [address] PCP - General Nurse Practitioner 08/18/23 documented as of this encounter
--- OUTSIDE RECORDS SUMMARY | 2025-05-14 20:31 | XMS_ITS | Encounter Summary ---
Author Organization [facility] ([place], [place], [place], [place]) Address [address] [place] [address] Care Team Providers Care Thermite Bomb Loader Name Role Phone Marielos Amaral KAYE Primary Care Provider [phone] Encounter Details Date Type Department Care Team (Late st Contact Info) Description 10/15/2019 Transcribed Document [facility] [place] [address] [place] [address] ProviderHaroldo MD [address] [place] [address] Social History Tobacco Use Types Packs/Day Years Used Date Smoking Tobacco: Never Assessed Sex and Gender Information Value Date Recorded Sex Assigned at Not on file Legal Sex Male 3:45 PM CDT Gender Identity Not on file Sexual Orientation Not on file documented as of this encounter Miscellaneous Notes * Cerner Conversion Note - Haroldo ProviderMD - 10/15/2019 12:13 PM CUTTING MACHINE TENDER Treatment Intervention, PT Entered On: 10/17/2019 11:02 EST Performed On: 10/17/2019 10:56 EST by ZACKARY HENDERSON, PT General Information, PT Visit Type, PT : Treatment Note Patient Orders : Order Date Order Ordering 10/14/2019 16:59 PT Evaluation and Treatment Ordered By: TYSHAWN BRANDT MD-SIN 10/15/2019 12:13 PT Additional Treatment Ordered By: EHSAN CONTRERAS, PT Active Diagnoses : 10/14/2019 12:00 Cerebral infarction, unspecified 10/14/2019 12:00 Chest pain 10/14/2019 12:00 Chest pain, unspecified 10/14/2019 12:00 Hypertensive emergency 10/14/2019 12:00 Hypertensive urgency 10/14/2019 12:00 Other symptoms and signs involving the musculoskeletal system Therapy Diagnosis, PT : Impaired gt Admission Date : 10/14/2019 17:19 Personal Devices : Personal Devices No Devices Recorded Assistive Devices : Assistive Devices No Devices Recorded ZACKARY HENDERSON, PT - 10/17/2019 10:56 EST General Status Patient Received Status : Supine in bed Treatment Start Time : 10/17/2019 10:21 EST Patient Left Status : Up in chair, Communication board completed, All needs met and within reach RN/PCT Informed Comment : RN OK'd PTx. Treatment End Time : 10/17/2019 10:34 EST Treatment Time : 13 Minute(s) ZACKARY HENDERSON, PT - 10/17/2019 10:56 EST Intervention Summary Heart Rate/Pulse Pre-intervention : 69 bpm O2 Pre-Intervention : RA SpO2 Pre-Intervention : 96 % Heart Rate/Pulse Post-intervention : 70 bpm O2 Post-Intervention : RA SpO2 Post-Intervention : 95 % ZACKARY HENDERSON, PT - 10/17/2019 10:56 EST Functional Mobility Mobility Grid Bed Roll Left : Rehab Modified independence Supine to Sit : Rehab Modified independence Sit to Stand : Rehab Modified independence Stand to Sit : Rehab Modified independence ZACKARY HENDERSON, PT - 10/17/2019 10:56 EST Bed Mobility Scooting Device : Rails Supine to Sit Device : Rails Sit to Stand Device : Belt, gait Stand to Sit Device : Belt, gait ZACKARY HENDERSON, PT - 10/17/2019 10:56 EST Gait Training/Assessment, PT Weight Bearing Status : Full Gait Assistance Level : Supervision Walking Distance : 300' Ambulatory Devices : None, Gait belt Gait Training Comment : Pt a little unsteady with sharp turns but was able to maintain balance ZACKARY HENDERSON, PT - 10/17/2019 10:56 EST Cognitive Treatment, PT Orientation : Oriented x 4 Follows Basic Command Findings, PT : Pt able to follow commands appropriately. ZACKARY HENDERSON, PT - 10/17/2019 10:56 EST Edu Topics Physical Therapy Education Grid Role of Physical Therapy : Verbalizes understanding Therapeutic Exercises : Returns demonstration ZACKARY HENDERSON, PT - 10/17/2019 10:56 EST Indication Assesessment, PT Physical Therapy Indicated : Yes ZACKARY HENDERSON, PT - 10/17/2019 10:56 EST Plan of Care, PT PT Tx Plan/Goals Established w Patient : Yes ZACKARY HENDERSON, PT - 10/17/2019 10:56 EST Short Term Goals Ambulation STG Grid Goal #1 Device : None Distance : 400' Assist : Supervision or set-up Date to Meet : 10/22/2019 EST Goal Status : Progressing, continue ZACKARY HENDERSON, PT - 10/17/2019 10:56 EST [facility] Goals Ambulation LTG Grid Goal #1 Device : None Distance : 400' Assist : Independent, complete Date to Meet : 10/29/2019 EST Goal Status : Progressing, continue ZACKARY HENDERSON, PT - 10/17/2019 10:56 EST Treatment Note Subjective Comment : Pt agreed to PTx. Pt feels that he will be discharged home today or tomorrow. Assessment : Pt was able to perform all bed mobility and transfers modified independent with assistance from the bed rails. The pt ambulated 300' with supervision of PT and was slightly unsteady only with making turns. Plan for Treatment : Continue with PTx and POC. ZACKARY HENDERSON, PT - 10/17/2019 10:56 EST Pain Assessment Pain Scaled Used : 0-10 Pain scale Pain Score Pre-Intervention : 0 ZACKARY HENDERSON PT - 10/17/2019 10:56 EST Image 1 - Images currently included in the form version of this document have not been included in the text rendition version of the form. Anticipated Discharge Needs, OT/PT Anticipated Discharge to : Home, independently Recommend Continued Therapy at Discharge : No ZACKARY HENDERSON PT - 10/17/2019 10:56 EST [facility] PT Therap. Exercise 15 min : 1 ZACKARY HENDERSON PT - 10/17/2019 10:56 EST documented in this encounter Plan of Treatment Not on file documented as of this encounter Visit Diagnoses Not on filedocumented in this encounter Care Teams Thermite Bomb Loader Relationship Specialty Start Date End Date Marielos Amaral APRN [address] [phone] PCP - General Nurse Practitioner 08/18/23 documented as of this encounter
--- OUTSIDE RECORDS SUMMARY | 2025-05-14 20:31 | XMS_ITS | Encounter Summary ---
Author Organization [facility] ([place], [place], [place], [place]) Address [address] [place] [address] Care Team Providers Care Healthcare Insurance Sales Agent Name Role Phone Marielos Amaral KAYE Primary Care Provider Encounter Details Date Type Department Care Team (Late st Contact Info) Description 10/15/2019 Transcribed Document [facility] [place] [address] [place] [address] ProviderHaroldo MD [address] [place] [address] Social History Tobacco Use Types Packs/Day Years Used Date Smoking Tobacco: Never Assessed Sex and Gender Information Value Date Recorded Sex Assigned at Not on file Legal Sex Male 3:45 PM CDT Gender Identity Not on file Sexual Orientation Not on file documented as of this encounter Miscellaneous Notes * Cerner Conversion Note - Historical ProviderMD - 10/15/2019 5:58 AM HEAD BANQUET WAITER/WAITRESS Height and Weight, Routine Entered On: 10/15/2019 5:58 EST Performed On: 10/15/2019 5:58 EST by Emily Rich [facility] Height and Weight, Routine Routine Weight Source : Bed scale Routine Weight Entry Format : Metric Routine Weight, Kilograms : 87.5 kg(Converted to: 192 lb 14 oz) Routine Weight Calculation : 87.5 kg Height Source : Stated Height Entry Format : [place] Height, Feet : 5 ft Height, Inches : 9 Inch Clinical Height : 175.26 cm Body Surface Area (BSA), Routine : 2.03 m2 Body Mass Index (BMI), Routine : 28.49 kg/m2 Emily Rich [facility] - 10/15/2019 5:58 EST documented in this encounter Plan of Treatment Not on file documented as of this encounter Visit Diagnoses Not on filedocumented in this encounter Care Teams Healthcare Insurance Sales Agent Relationship Specialty Start Date End Date Marielos Amaral, BUCKSHOT SWAGE OPERATOR [address] [phone] PCP - General Nurse Practitioner 08/18/23 documented as of this encounter
--- OUTSIDE RECORDS SUMMARY | 2025-05-14 20:31 | XMS_ITS | Encounter Summary ---
Author Organization [facility] ([place], [place], [place], [place]) Address [address] [place] [address] Care Team Providers Care Vice President Of Finance Name Role Phone Marielos Amaral KAYE Primary Care Provider Encounter Details Date Type Department Care Team (Late st Contact Info) Description 10/15/2019 Transcribed Document [facility] [place] [address] [place] [address] ProviderHaroldo MD [address] [place] [address] Social History Tobacco Use Types Packs/Day Years Used Date Smoking Tobacco: Never Assessed Sex and Gender Information Value Date Recorded Sex Assigned at Not on file Legal Sex Male 3:45 PM CDT Gender Identity Not on file Sexual Orientation Not on file documented as of this encounter Miscellaneous Notes * Cerner Conversion Note - Haroldo ProviderMD - 10/15/2019 2:00 AM FLOOR RUNNER Chute Worker Details Entered On: 10/15/2019 2:47 EST Performed On: 10/15/2019 2:00 EST by Kristofer Barr Rn Order Details Order Detail : N/A IV Order Detail : 1 Oxygen Order Detail : 0 Nurse Collect Order Detail : 1 Central Line Order Detail : No Arterial Line : No Kristofer Barr Rn - 10/15/2019 2:47 EST Electronically signed by [facility] Conversion Image Consultant Cerner at 01/24/2023 10:21 AM CDT documented in this encounter Plan of Treatment Not on file documented as of this encounter Visit Diagnoses Not on filedocumented in this encounter Care Teams Vice President Of Finance Relationship Specialty Start Date End Date Marielos Amaral, INTERVENTION ANALYST [address] [place] [address] PCP - General Nurse Practitioner 08/18/23 documented as of this encounter
--- OUTSIDE RECORDS SUMMARY | 2025-05-14 20:31 | XMS_ITS | Encounter Summary ---
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 Primary Care Provider Encounter Details Date Type Department Care Team (Late st Contact Info) Description 10/15/2019 Transcribed Document [facility] [place] Family Medicine [address] [place] [address] ProviderHaroldo MD [address] [place] [address] Social History Tobacco Use Types Packs/Day Years Used Date Smoking Tobacco: Never Assessed Sex and Gender Information Value Date Recorded Sex Assigned at Not on file Legal Sex Male 3:45 PM CDT Gender Identity Not on file Sexual Orientation Not on file documented as of this encounter Miscellaneous Notes * Cerner Conversion Note - Haroldo ProviderMD - 10/15/2019 12:18 PM 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 No specific relieving or precipitating factors. He continues to smoke a pack a day. He had concerns about his chest pain and came to the ER for evaluation, where he had EKG that showed no ST elevation or other abnormalities and negative initial troponin, but he developed right leg weakness and tingling. He said the tingling is new, but there was some weakness on the right side from previous stroke and worse last night and s/p tpa last night saw him today in am and d/w family he has no chest pain now, right leg weakness also better mild anxiety , eat better per report, MRI done today ROS: no fever, had cp, no sob, has anxiety PAST MEDICAL HISTORY: Includes DM2, hypertension, dyslipidemia, CAD, history of cardiac stent, CABG 3 years ago, possible chronic kidney disease, tobacco dependence, history of GERD and Valenzuela's esophagus, congestive heart failure, obstructive sleep apnea, dyslipidemia, visual impairment, migraine, BPH. Health Status Allergies: Allergic Reactions (Selected) Severity Not Documented Amoxicillin- No reactions were documented. Mucinex- No reactions were documented., Allergies (2) Active Reaction amoxicillin None Documented Mucinex None Documented Current medications: (Selected) Inpatient Medications Ordered Colace: 100 mg, Oral, BID DuoNeb 0.5 mg-2.5 mg/3 mL inhalation solution: 3 mL, Nebulized Inhalation, RT_Q6H, PRN: Shortness of Breath Flomax: 0.4 mg, Oral, Daily Metoprolol Succinate ER: 50 mg, Oral, Daily MiraLax: 17 Gram, Oral, Daily, PRN: Constipation Protonix: 40 mg, Oral, Daily Sodium Chloride 0.9% intravenous solution 1,000 mL: 50 mL/Hr, IntraVENous Tylenol: 650 mg, Oral, Q4H, PRN: Pain (Mild 1-3) Zofran: 4 mg, IV Push, Q4H, PRN: Nausea amiodarone: 200 mg, Oral, Daily atorvastatin: 40 mg, Oral, At Bedtime hydrALAZINE: 10 mg, IV Push, Q6H, PRN: Other (See Comment) insulin lispro sliding scale: Scale A:, SubCutaneous, AC and at Bedtime niCARdipine injection 25 mg + NaCl 0.9% for drip 250 mL: TITRATE, IntraVENous nitroglycerin: 0.4 mg, SubLINgual, 1-Time, PRN: Chest Pain Prescriptions Prescribed Eliquis 5 mg oral tablet: 1 Tab, Oral, [id number], 60 Tab, 0 Refill(s) Toprol-XL 25 mg oral tablet, extended release: 1 Tab, Oral, Daily, for 30 Day(s), 30 Tab, 0 Refill(s) amiodarone 200 mg oral tablet: 1 Tab, Oral, Daily, 30 Tab, 0 Refill(s) Documented Medications Documented Eliquis 5 mg oral tablet: 1 Tab, Oral, BID, 60 Tab, 0 Refill(s) Flomax 0.4 mg oral capsule: 1 Cap, Oral, Daily, 0 Refill(s) Januvia 100 mg oral tablet: 1 Tab, Oral, Daily, 0 Refill(s) Metoprolol Succinate ER 50 mg oral tablet, extended release: 1 Tab, Oral, Daily, 0 Refill(s) Vitamin B12 1000 mcg oral tablet: 1 Tab, Oral, Daily, 30 Tab, 0 Refill(s) Vitamin D3 1000 intl units oral tablet: 1 Tab, Oral, Daily, 30 Tab, 0 Refill(s) amiodarone 200 mg oral tablet: 1 Tab, Oral, Daily, 30 Tab, 0 Refill(s) atorvastatin 40 mg oral tablet: 1 Tab, Oral, At Bedtime, 0 Refill(s) glimepiride 4 mg oral tablet: 1 Tab, Oral, BID, 0 Refill(s) lisinopril 40 mg oral tablet: 1 Tab, Oral, Daily, 0 Refill(s) metFORMIN 1000 mg oral tablet: 1 Tab, Oral, BID, 60 Tab, 0 Refill(s) omeprazole 40 mg oral delayed release capsule: 1 Cap, Oral, Daily, before a meal, 30 Cap, 0 Refill(s), Home Medications (15) Active amiodarone 200 mg oral tablet 200 mg = 1 Tab, Oral, Daily amiodarone 200 mg oral tablet 200 mg = 1 Tab, Oral, Daily atorvastatin 40 mg oral tablet 40 mg = 1 Tab, Oral, At Bedtime Eliquis 5 mg oral tablet 5 mg = 1 Tab, Oral, [id number] Eliquis 5 mg oral tablet 5 mg = 1 Tab, Oral, BID Flomax 0.4 mg oral capsule 0.4 mg = 1 Cap, Oral, Daily glimepiride 4 mg oral tablet 4 mg = 1 Tab, Oral, BID Januvia 100 mg oral tablet 100 mg = 1 Tab, Oral, Daily lisinopril 40 mg oral tablet 40 mg = 1 Tab, Oral, Daily metFORMIN 1000 mg oral tablet 1,000 mg = 1 Tab, Oral, BID Metoprolol Succinate ER 50 mg oral tablet, extended release 50 mg = 1 Tab, Oral, Daily omeprazole 40 mg oral delayed release capsule 40 mg = 1 Cap, Oral, Daily Toprol-XL 25 mg oral tablet, extended release 25 mg = 1 Tab, Oral, Daily Vitamin B12 1000 mcg oral tablet 1,000 mcg = 1 Tab, Oral, Daily Vitamin D3 1000 intl units oral tablet 1,000 Int Units = 1 Tab, Oral, Daily , Medications (15) Active Scheduled: (7) amiodarone 200 mg tab 200 mg 1 Tab, Oral, Daily atorvastatin 40 mg tab 40 mg 1 Tab, Oral, At Bedtime docusate sodium 100 mg cap 100 mg 1 Cap, Oral, BID insulin lispro 1 unit/0.01 mL inj Scale A:, SubCutaneous, AC and at Bedtime metoprolol succinate XL 50 mg tab 50 mg 1 Tab, Oral, Daily pantoprazole EC 40 mg tab 40 mg 1 Tab, Oral, Daily tamsulosin CR 0.4 mg cap 0.4 mg 1 Cap, Oral, Daily Continuous: (2) NaCl 0.9% 1,000 mL 1,000 mL, IntraVENous, 50 mL/Hr niCARdipine 25 mg + NaCl 0.9% T ITRATE 250 mL 250 mL, IntraVENous PRN: (6) acetaminophen 325 mg tab 650 mg 2 Tab, Oral, Q4H albuterol-ipratropium inh 3 mL 3 mL, Nebulized Inhalation, RT_Q6H hydrALAZINE 20 mg/1 mL inj 10 mg 0.5 mL, IV Push, Q6H nitroglycerin 0.4 mg tab # 25 btl 0.4 mg 1 Tab, SubLINgual, 1-Time ondansetron 4 mg/2 mL inj 4 mg 2 mL, IV Push, Q4H polyethylene glycol 3350 pwd 17 g pkt 17 Gram 1 Packet, Oral, Daily Problem list: Medical History of obstructive sleep apnea / IMO [id number] / Confirmed, Active Problems (13) Angina Coronary artery disease Diabetes mellitus type II Enlarged prostate GERD - Gastro-esophageal reflux disease Heart failure Heart murmur History of obstructive sleep apnea Hyperlipidemia Hypertension Impaired vision Migraine Stented coronary artery Objective VS/Measurements Vitals Signs (last 24 hrs) Last Charted Minimum Maximum Temp 98.2 (OCT 15 08:00) 97.9 (OCT 14 13:50) 98.3 (OCT 14 18:00) Apical HR 75 (OCT 15 07:55) 75 (OCT 15 07:55) 85 (OCT 14 16:56) Mon HR 73 (OCT 15 10:00) 67 (OCT 15 07:00) 90 (OCT 14 17:27) Periph HR 80 (OCT 14 13:50) 80 (OCT 14 13:50) 80 (OCT 14 13:50) Resp Rate H 21 (OCT 15 10:00) 16 (OCT 14 17:50) H 40 (OCT 15 00:00) SBP 134 (OCT 15:00) 109 (OCT 15 01:00) H 228 (OCT 14 16:42) DBP 73 (OCT 15 10:00) L 51 (OCT 15 01:00) H 116 (OCT 14 17:12) MAP 115 (OCT 15 09:30) 74 (OCT 15 01:00) 146 (OCT 14 16:42) SpO2 98 (OCT 15 10:00) L 90 (OCT 15 07:00) 98 (OCT 14 13:50) General: Alert and oriented, Mild distress. HENT: Normocephalic. Neck: Supple, Non-tender, No jugular venous distention. Respiratory: Respirations are non-labored, Breath sounds are equal, Symmetrical chest wall expansion, No chest wall tenderness. Cardiovascular: Normal rate, No murmur, No gallop. Gastrointestinal: Soft, Non-tender, Normal bowel sounds. Musculoskeletal: No tenderness, No deformity. Integumentary: Warm, Intact, No pallor. Neurologic: Alert, Oriented, right leg mild weaker . Psychiatric: Cooperative, anxiety, Not appropriate mood & affect. Results Review Lab and test: Labs (Last four charted values) WBC 8.4 (OCT 15) 7.8 (OCT 14) HB L 12.0 (OCT 15) L 12.6 (OCT 14) HCT L 34.9 (OCT 15) L 37.5 (OCT 14) Plt 215 (OCT 15) 244 (OCT 14) Na 138 (OCT 15) 138 (OCT 14) K L 3.3 (OCT 15) 4.1 (OCT 14) Cl 108 (OCT 15) 106 (OCT 14) CO2 24 (OCT 15) 25 (OCT 14) BUN 19 (OCT 15) 20 (OCT 14) Cr 1.30 (OCT 15) H 1.70 (OCT 14) Glu R 79 (OCT 15) H 172 (OCT 14) Ca 8.4 (OCT 15) 8.6 (OCT 14) PT 10.3 (OCT 14) INR 1.0 (OCT 14) PTT L 23.0 (OCT 14) AST 13 (OCT 15) 16 (OCT 14) ALT 26 (OCT 15) 30 (OCT 14) ALK P 59 (OCT 15) 87 (OCT 14) T Bili 0.5 (OCT 15) 0.4 (OCT 14) PTN 6.4 (OCT 15) 7.3 (OCT 14) ALB L 3.3 (OCT 15) 3.6 (OCT 14) Troponin 0.020 (OCT 14) <0.015 (OCT 14) Radiology Results (Last 48 hours) [id number] -- 10/14/2019 17:19 CR Chest 1 Vw Portable (10/14/2019 14:21) Result: PORTABLE CHEST 10/14/2019 1:14 PMHISTORY: Left-sided chest painCOMPARISON: September 2017FINDINGS: Cardiac electrodes overlie the chest wall. The patient isstatus post sternotomy for CABG. The cardiac silhouette is normal insize. The mediastinal and hilar contours are unremarkable. The lungsare underinflated. There is no pneumothorax. The visualized osseousstructures demonstrate no acute abnormalities.IMPRESSION: Underinflated with no acute cardiopulmonary process. Images reviewed, interpreted, and dictated by Dr. Chris Stoddard.Transcribed by Lisa Holliday (R).I have personally viewed, interpreted and dictated the examination. Ihave read and agree with the above final transcribed report. CT Head WO Code Stroke (10/14/2019 16:14) Result: HEAD CTHISTORY: Chest pain. Focal neurological deficit. Stroke protocol.TECHNIQUE: Multiple axial CT images were performed from the foramenmagnum to the vertex without contrast. This study was performed withtechniques to keep radiation doses as low as reasonably achievable,(ALARA). Individualized dose reduction techniques using automatedexposure control or adjustment of mA and/or kV according to the patientsize were employed.COMPARISON: None.FINDINGS: The ventricles are dilated, but proportionate to the degree ofgeneralized atrophy. Periventricular and deep white matter lowattenuation areas are consistent with small vessel ischemia. There is nomass or shift midline structures. There is no intracranial hemorrhage.There is ectasia of the left vertebral and basilar artery. Nosignificant sinus or osseous abnormality seen.IMPRESSION: No acute intracranial abnormality.ER was called and notified of these findings at the time of dictation. CT Brain Perfusion (10/14/2019 16:18) Result: CT ANGIOGRAM OF THE CHESTHISTORY: Chest pain. Focal neurological deficit. Stroke protocol.COMPARISON: None.TECHNIQUE: Thin-section axial images were obtained through the chestduring the arterial phase of IV contrast administration. Coronal 3D MIPreconstructed images were also provided. This study was performed withtechniques to keep radiation doses as low as reasonably achievable,(ALARA). Individualized dose reduction techniques using automatedexposure control or adjustment of mA and/or kV according to the patientsize were employed.FINDINGS: The pulmonary arteries are well opacified and there is nofilling defect to indicate pulmonary embolism. The thoracic aorta isnormal except for postoperative changes from CABG.. The lungs are clearand there is no pleural disease, adenopathy or significant osseousabnormality. And Angelchik prosthesis is appropriately positioned aroundthe gastric cardia.IMPRESSION: No acute disease.HEAD CT WITH AND WITHOUT SCANHISTORY: As aboveCOMPARISON: None.TECHNIQUE: Multiple axial CT sections were performed from the foramenmagnum to the vertex pre and post contrast injection. The post contrastimages were performed utilizing 2 separate boluses and extensivepostprocessing was performed to provide maps of regional blood flow andvolume according to the perfusion protocol.FINDINGS: The noncontrast examination again shows no acute intracranialabnormality. Perfusion imaging is unremarkable.IMPRESSION: No perfusion abnormality or other acute intracranialabnormality.CT NECK ANGIO, WITHOUT AND WITH CONTRASTHISTORY: As aboveTECHNIQUE: Thin-section axial CT with IV contrast supplemented withmultiplanar reconstruction. This study was performed with techniques tokeep radiation doses as low as reasonably achievable, (ALARA).Individualized dose reduction techniques using automated exposurecontrol or adjustment of mA and/or kV according to the patient size wereemployed.COMPARISON: None.FINDINGS:Aortic arch: No significant abnormality.Right carotid: No significant abnormality.Left carotid: Minimal stenosis involving the proximal ICA. Nosignificant abnormality.Vertebrals: No significant abnormality.IMPRESSION: No significant abnormality.CTA HEADHISTORY: As aboveTECHNIQUE: Thin-section axial CT with contrast with multiplanarreconstruction. This study was performed with techniques to keepradiation doses as low as reasonably achievable, (ALARA). Individualizeddose reduction techniques using automated exposure control or adjustmentof mA and/or kV according to the patient size were employed.FINDINGS: The intracranial portions of the internal carotid arteriesare calcified, but there is no significant stenosis. The anterior andmiddle cerebral arteries are unremarkable. There is diffuse milddilation of the left vertebral artery and the basilar artery, probablyof no significance. The intracranial right vertebral artery. 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 Otherwise, unremarkable except foratherosclerotic calcification.The ER was called and notified of these findings at the time ofdictation. CTA Chest Dissection (10/14/2019 16:18) Result: CT ANGIOGRAM OF THE CHESTHISTORY: Chest pain. Focal neurological deficit. Stroke protocol.COMPARISON: None.TECHNIQUE: Thin-section axial images were obtained through the chestduring the arterial phase of IV contrast administration. Coronal 3D MIPreconstructed images were also provided. This study was performed withtechniques to keep radiation doses as low as reasonably achievable,(ALARA). Individualized dose reduction techniques using automatedexposure control or adjustment of mA and/or kV according to the patientsize were employed.FINDINGS: The pulmonary arteries are well opacified and there is nofilling defect to indicate pulmonary embolism. The thoracic aorta isnormal except for postoperative changes from CABG.. The lungs are clearand there is no pleural disease, adenopathy or significant osseousabnormality. And Angelchik prosthesis is appropriately positioned aroundthe gastric cardia.IMPRESSION: No acute disease.HEAD CT WITH AND WITHOUT SCANHISTORY: As aboveCOMPARISON: None.TECHNIQUE: Multiple axial CT sections were performed from the foramenmagnum to the vertex pre and post contrast injection. The post contrastimages were performed utilizing 2 separate boluses and extensivepostprocessing was performed to provide maps of regional blood flow andvolume according to the perfusion protocol.FINDINGS: The noncontrast examination again shows no acute intracranialabnormality. Perfusion imaging is unremarkable.IMPRESSION: No perfusion abnormality or other acute intracranialabnormality.CT NECK ANGIO, WITHOUT AND WITH CONTRASTHISTORY: As aboveTECHNIQUE: Thin-section axial CT with IV contrast supplemented withmultiplanar reconstruction. This study was performed with techniques tokeep radiation doses as low as reasonably achievable, (ALARA).Individualized dose reduction techniques using automated exposurecontrol or adjustment of mA and/or kV according to the patient size wereemployed.COMPARISON: None.FINDINGS:Aortic arch: No significant abnormality.Right carotid: No significant abnormality.Left carotid: Minimal stenosis involving the proximal ICA. Nosignificant abnormality.Vertebrals: No significant abnormality.IMPRESSION: No significant abnormality.CTA HEADHISTORY: As aboveTECHNIQUE: Thin-section axial CT with contrast with multiplanarreconstruction. This study was performed with techniques to keepradiation doses as low as reasonably achievable, (ALARA). Individualizeddose reduction techniques using automated exposure control or adjustmentof mA and/or kV according to the patient size were employed.FINDINGS: The intracranial portions of the internal carotid arteriesare calcified, but there is no significant stenosis. The anterior andmiddle cerebral arteries are unremarkable. There is diffuse milddilation of the left vertebral artery and the basilar artery, probablyof no significance. The intracranial right vertebral artery. 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 Otherwise, unremarkable except foratherosclerotic calcification.The ER was called and notified of these findings at the time ofdictation. CTA Head Code Stroke (10/14/2019 16:18) Result: CT ANGIOGRAM OF THE CHESTHISTORY: Chest pain. Focal neurological deficit. Stroke protocol.COMPARISON: None.TECHNIQUE: Thin-section axial images were obtained through the chestduring the arterial phase of IV contrast administration. Coronal 3D MIPreconstructed images were also provided. This study was performed withtechniques to keep radiation doses as low as reasonably achievable,(ALARA). Individualized dose reduction techniques using automatedexposure control or adjustment of mA and/or kV according to the patientsize were employed.FINDINGS: The pulmonary arteries are well opacified and there is nofilling defect to indicate pulmonary embolism. The thoracic aorta isnormal except for postoperative changes from CABG.. The lungs are clearand there is no pleural disease, adenopathy or significant osseousabnormality. And Angelchik prosthesis is appropriately positioned aroundthe gastric cardia.IMPRESSION: No acute disease.HEAD CT WITH AND WITHOUT SCANHISTORY: As aboveCOMPARISON: None.TECHNIQUE: Multiple axial CT sections were performed from the foramenmagnum to the vertex pre and post contrast injection. The post contrastimages were performed utilizing 2 separate boluses and extensivepostprocessing was performed to provide maps of regional blood flow andvolume according to the perfusion protocol.FINDINGS: The noncontrast examination again shows no acute intracranialabnormality. Perfusion imaging is unremarkable.IMPRESSION: No perfusion abnormality or other acute intracranialabnormality.CT NECK ANGIO, WITHOUT AND WITH CONTRASTHISTORY: As aboveTECHNIQUE: Thin-section axial CT with IV contrast supplemented withmultiplanar reconstruction. This study was performed with techniques tokeep radiation doses as low as reasonably achievable, (ALARA).Individualized dose reduction techniques using automated exposurecontrol or adjustment of mA and/or kV according to the patient size wereemployed.COMPARISON: None.FINDINGS:Aortic arch: No significant abnormality.Right carotid: No significant abnormality.Left carotid: Minimal stenosis involving the proximal ICA. Nosignificant abnormality.Vertebrals: No significant abnormality.IMPRESSION: No significant abnormality.CTA HEADHISTORY: As aboveTECHNIQUE: Thin-section axial CT with contrast with multiplanarreconstruction. This study was performed with techniques to keepradiation doses as low as reasonably achievable, (ALARA). Individualizeddose reduction techniques using automated exposure control or adjustmentof mA and/or kV according to the patient size were employed.FINDINGS: The intracranial portions of the internal carotid arteriesare calcified, but there is no significant stenosis. The anterior andmiddle cerebral arteries are unremarkable. There is diffuse milddilation of the left vertebral artery and the basilar artery, probablyof no significance. The intracranial right vertebral artery. 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 Otherwise, unremarkable except foratherosclerotic calcification.The ER was called and notified of these findings at the time ofdictation. CTA Neck Code Stroke (10/14/2019 16:18) Result: CT ANGIOGRAM OF THE CHESTHISTORY: Chest pain. Focal neurological deficit. Stroke protocol.COMPARISON: None.TECHNIQUE: Thin-section axial images were obtained through the chestduring the arterial phase of IV contrast administration. Coronal 3D MIPreconstructed images were also provided. This study was performed withtechniques to keep radiation doses as low as reasonably achievable,(ALARA). Individualized dose reduction techniques using automatedexposure control or adjustment of mA and/or kV according to the patientsize were employed.FINDINGS: The pulmonary arteries are well opacified and there is nofilling defect to indicate pulmonary embolism. The thoracic aorta isnormal except for postoperative changes from CABG.. The lungs are clearand there is no pleural disease, adenopathy or significant osseousabnormality. And Angelchik prosthesis is appropriately positioned aroundthe gastric cardia.IMPRESSION: No acute disease.HEAD CT WITH AND WITHOUT SCANHISTORY: As aboveCOMPARISON: None.TECHNIQUE: Multiple axial CT sections were performed from the foramenmagnum to the vertex pre and post contrast injection. The post contrastimages were performed utilizing 2 separate boluses and extensivepostprocessing was performed to provide maps of regional blood flow andvolume according to the perfusion protocol.FINDINGS: The noncontrast examination again shows no acute intracranialabnormality. Perfusion imaging is unremarkable.IMPRESSION: No perfusion abnormality or other acute intracranialabnormality.CT NECK ANGIO, WITHOUT AND WITH CONTRASTHISTORY: As aboveTECHNIQUE: Thin-section axial CT with IV contrast supplemented withmultiplanar reconstruction. This study was performed with techniques tokeep radiation doses as low as reasonably achievable, (ALARA).Individualized dose reduction techniques using automated exposurecontrol or adjustment of mA and/or kV according to the patient size wereemployed.COMPARISON: None.FINDINGS:Aortic arch: No significant abnormality.Right carotid: No significant abnormality.Left carotid: Minimal stenosis involving the proximal ICA. Nosignificant abnormality.Vertebrals: No significant abnormality.IMPRESSION: No significant abnormality.CTA HEADHISTORY: As aboveTECHNIQUE: Thin-section axial CT with contrast with multiplanarreconstruction. This study was performed with techniques to keepradiation doses as low as reasonably achievable, (ALARA). Individualizeddose reduction techniques using automated exposure control or adjustmentof mA and/or kV according to the patient size were employed.FINDINGS: The intracranial portions of the internal carotid arteriesare calcified, but there is no significant stenosis. The anterior andmiddle cerebral arteries are unremarkable. There is diffuse milddilation of the left vertebral artery and the basilar artery, probablyof no significance. The intracranial right vertebral artery. 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 Otherwise, unremarkable except foratherosclerotic calcification.The ER was called and notified of these findings at the time ofdictation. Diagnosis / problem 1. Possible ischemic stroke with right-sided weakness - s/p tPA. 2. Chest pain on admit 3. Hypertension. 4. Dyslipidemia. 5. Diabetes. 6. Benign prostatic hyperplasia. 7. Tobacco dependence. 8. Possible chronic kidney disease. 9. h/o CAD CABG and stent 10. h/o CVA 11. h/o a-fib 12.high TSH Plan: 1. see above medication list for treatment. 2. MRI today 3. ct of brain 24h post tpa 4. f/u neurology 5. cardiology consult also, resume amiodarone also 6. PT/OT, start eliquis if ct no bleeding 7. d/w pat and family 8. repeat TSH and T4 in am documented in this encounter Plan of Treatment Not on file documented as of this encounter Visit Diagnoses Not on filedocumented in this encounter Care Teams As400 Analyst Relationship Specialty Start Date End Date Marielos Amaral, ELECTROMEDICAL EQUIPMENT REPAIRER [address] [address] PCP - General Nurse Practitioner 08/18/23 documented as of this encounter
--- OUTSIDE RECORDS SUMMARY | 2025-05-14 20:31 | XMS_ITS | Encounter Summary ---
Author Organization [employer] ([place], [place], [place], [place]) Address [address] [place] [address] Care Team Providers Care Respooler Name Role Phone Munir Marielos RESTREPO Primary Care Provider Encounter Details Date Type Department Care Team (Late st Contact Info) Description 04/23/2022 Transcribed Document [facility] [place] [address] [place] [address] ProviderHaroldo MD [address] [place] [address] Social History Tobacco Use Types [...] speak a language other than Guinean at [facility]? Yes 10/30/2024 Do you want help [...] Conversion Note - Historical Provider, - 04/23/2022 10:20 AM CDT Patient: ZACKARY ANTOINE Age: 71 years Sex: Male : 1950 Associated Diagnoses: None Author: PARAM WEBBER MD Basic Information No acute events overnight . No new complaints Review of Systems Constitutional: Weakness. Respiratory: No shortness of breath, No cough. Cardiovascular: No chest pain, No peripheral edema. Neurologic: Alert and oriented X4. Health Status Allergies: Allergic Reactions (All) Severity Not Documented Amoxicillin- No reactions were documented. Mucinex- No reactions were documented. Penicillin- No reactions were documented., Allergies (3) Active Reaction amoxicillin None Documented Mucinex None Documented penicillin None Documented Current medications: (Selected) Inpatient Medications Ordered Dextrose 50% injection: 12.5 Gram, IV Push, Q15Min, PRN: Other (See Comment) Dextrose 50% injection: 25 Gram, IV Push, Q15Min, PRN: Other (See Comment) Dextrose 50% injection: 25 Gram, IV Push, Q15Min, PRN: Other (See Comment) Dextrose 50% injection: 25 Gram, IV Push, Q15Min, PRN: Other (See Comment) Eliquis: 2.5 mg, Oral, [id number] Rocephin: 1 Gram, 100 mL/Hr, IV Piggyback, [id number] Tylenol: 650 mg, Oral, Q4H, PRN: Pain (Mild 1-3) Zofran: 4 mg, IV Push, Q4H, PRN: Nausea amiodarone: 200 mg, Oral, Daily atorvastatin: 40 mg, Oral, At Bedtime glucagon: 1 mg, IntraMuscular, Q15Min, PRN: Other (See Comment) glucose 4 g oral tablet, chewable: 16 Gram, 4 Tab, Chew, Q15Min, PRN: Other (See Comment) glucose 40% oral gel: 15 Gram, 37.5 mL, Oral, Q15Min, PRN: Other (See Comment) insulin glargine: 5 Units, SubCutaneous, Daily insulin lispro sliding scale: Scale A:, SubCutaneous, AC and at Bedtime levothyroxine: 100 mcg, Oral, Daily pantoprazole: 40 mg, Oral, Daily sodium bicarbonate injection 150 mEq + Dextrose 5% in Water intravenous solution 1,000 mL: 75 mL/Hr, IntraVENous Documented Medications Documented Bumex: 1 mg, Oral, Daily, 0 Refill(s) Eliquis 5 mg oral tablet: 1 Tab, Oral, BID, 60 Tab, 0 Refill(s) Flomax 0.4 mg oral capsule: 1 Cap, Oral, Daily, 0 Refill(s) Januvia 100 mg oral tablet: 1 Tab, Oral, BID, 0 Refill(s) Metoprolol Succinate ER 50 mg oral tablet, extended release: 1 Tab, Oral, Daily, 0 Refill(s) Synthroid 100 mcg (0.1 mg) oral tablet: 1 Tab, Oral, Daily, 60 Tab, 0 Refill(s) Tylenol 325 mg oral tablet: 2 Tab, Oral, Q4H, PRN: Pain (Mild 1-3), 0 Refill(s) Vitamin B12 1000 mcg oral tablet: 1 Tab, Oral, Daily, 30 Tab, 0 Refill(s) Vitamin D3 1000 intl units oral tablet: 1 Tab, Oral, Daily, 30 Tab, 0 Refill(s) amiodarone 200 mg oral tablet: 1 Tab, Oral, Daily, 30 Tab, 0 Refill(s) atorvastatin 40 mg oral tablet: 1 Tab, Oral, At Bedtime, 0 Refill(s) lisinopril 40 mg oral tablet: 1 Tab, Oral, Daily, 0 Refill(s) nitroglycerin: 0 Refill(s) omeprazole 40 mg oral delayed release capsule: 1 Cap, Oral, Daily, before a meal, 30 Cap, 0 Refill(s) spironolactone 25 mg oral tablet: 1 Tab, Oral, BID, 180 Tab, 0 Refill(s), Medications (18) Active Scheduled: (8) amiodarone 200 mg tab 200 mg 1 Tab, Oral, Daily apixaban 2.5 mg tab 2.5 mg 1 Tab, Oral, [id number] atorvastatin 40 mg tab 40 mg 1 Tab, Oral, At Bedtime cefTRIAXone 1 Gram, IV Piggyback, [id number] insulin glargine 1 unit/0.01 mL inj 5 Units 0.05 mL, SubCutaneous, Daily insulin lispro 1 unit/0.01 mL inj Scale A:, SubCutaneous, AC and at Bedtime levothyroxine 100 mcg tab 100 mcg 1 Tab, Oral, Daily pantoprazole EC 40 mg tab 40 mg 1 Tab, Oral, Daily Continuous: (1) sodium bicarbonate 150 mEq + Dextrose 5% in Water 1,000 mL 1,000 mL, IntraVENous, 75 mL/Hr PRN: (9) acetaminophen 325 mg tab 650 mg 2 Tab, Oral, Q4H dextrose 50% 25 g/50 mL inj syr 25 Gram 50 mL, IV Push, Q15Min dextrose 50% 25 g/50 mL inj syr 25 Gram 50 mL, IV Push, Q15Min dextrose 50% 25 g/50 mL inj syr 25 Gram 50 mL, IV Push, Q15Min dextrose 50% 25 g/50 mL inj syr 12.5 Gram 25 mL, IV Push, Q15Min glucagon 1 mg/1 mL inj 1 mg 1 mL, IntraMuscular, Q15Min glucose 4 g tab 16 Gram 4 Tab, Chew, Q15Min glucose 40% gel 15 g 15 Gram 37.5 mL, Oral, Q15Min ondansetron 4 mg/2 mL inj 4 mg 2 mL, IV Push, Q4H Problem list: Medical Atrial fibrillation / SNOMED CT 59812900 / Confirmed CAD - Coronary artery disease / SNOMED CT 0904510421 / Confirmed Cardiomyopathy / SNOMED CT 568430607 / Confirmed Acute cerebrovascular accident (CVA) / SNOMED CT 624794319 / Confirmed History of obstructive sleep apnea / IMO 18366474 / Confirmed HLD - Hyperlipidemia / SNOMED CT 151448782 / Confirmed HTN - Hypertension / SNOMED CT 1857687137 / Confirmed Type 2 diabetes mellitus / SNOMED CT 571932961 / Confirmed, Active Problems (20) Acute cerebrovascular accident (CVA) Angina Atrial fibrillation CAD - Coronary artery disease Cardiomyopathy Coronary artery disease Diabetes mellitus type II Enlarged prostate GERD - Gastro-esophageal reflux disease Heart failure Heart murmur History of obstructive sleep apnea HLD - Hyperlipidemia HTN - Hypertension Hyperlipidemia Hypertension Impaired vision Migraine Stented coronary artery Type 2 diabetes mellitus Physical Examination VS/Measurements Vitals Signs (last 24 hrs) Last Charted Minimum Maximum Temp 98.1 (APR 23 08:30) 98 (APR 22 22:43) 98 (APR 22 22:43) Apical HR 68 (APR 23 08:36) 68 (APR 23 08:36) 68 (APR 23 08:36) Mon HR 67 (APR 23 08:30) 60 (APR 22 20:00) 72 (APR 22 17:30) Resp Rate 19 (APR 23 08:30) 15 (APR 22 20:00) H 27 (APR 22 23:00) SBP 105 (APR 23 08:30) L 76 (APR 22:30) 105 (APR 23 08:30) DBP L 59 (APR 23 08:30) L 44 (APR 22 22:43) 60 (APR 22 21:27) MAP 74 (APR 23 08:30) 60 (APR 22 19:30) 75 (APR 22 17:30) SpO2 97 (APR 23 08:30) L 90 (APR 22 18:47) 100 (APR 22 11:00) , Measurements from flowsheet : Measurements 04/22/2022 22:36 EDT Height Source Stated Height Entry Format [place] Height/Length, SUDANESE (ft) 5 ft Height/Length SUDANESE 9 Inch CLINICALHEIGHT 175.26 cm [place] Body Weight 70 kg Weight Source Bed scale Weight Entry Format [place] Weight [place] lb 187 lb CLINICALWEIGHT 85 kg Body Surface Area (BSA) 2.01 m2 Body Mass Index 27.7 kg/m2 HI 04/22/2022 9:15 EDT Height Source Stated Height Entry Format [place] Height/Length, SUDANESE (ft) 5 ft Height/Length SUDANESE 9 Inch CLINICALHEIGHT 175.26 cm [place] Body Weight 69.73 kg Weight Source, ED Critical estimated dosing weight Weight Entry Format [place] Weight [place] lb 187 lb CLINICALWEIGHT 85 kg Body Surface Area (BSA) 2.01 m2 Body Mass Index 27.7 kg/m2 HI General: Alert and oriented, No acute distress. Eye: Extraocular movements are intact, Normal conjunctiva. HENT: Normocephalic, Normal hearing. Neck: Supple, No jugular venous distention, No thyromegaly. Respiratory: Lungs are clear to auscultation, Respirations are non-labored, Symmetrical chest wall expansion. Cardiovascular: Normal rate, No edema. Gastrointestinal: Soft, Non-tender, Non-distended. Integumentary: Warm, Dry, [place]. Neurologic: Alert, Oriented, No focal deficits. Psychiatric: Cooperative, Appropriate mood & affect. Review / Management Results review: Labs (Last four charted values) WBC 5.2 (APR 23) 5.1 (APR 23) 7.6 (APR 22) HB L 9.6 (APR 23) L 9.6 (APR 23) L 10.3 (APR 22) HCT L 28.0 (APR 23) L 27.9 (APR 23) L 30.2 (APR 22) Plt 230 (APR 23) 239 (APR 23) 246 (APR 22) Na L 129 (APR 23) L 130 (APR 22) L 128 (APR 22) L 124 (APR 22) K 4.4 (APR 23) 4.7 (APR 22) 4.7 (APR 22) 5.0 (APR 22) Cl L 98 (APR 23) 102 (APR 22) L 100 (APR 22) L 96 (APR 22) CO2 21 (APR 23) L 19 (APR 22) L 16 (APR 22) L 15 (APR 22) BUN C 91 (APR 23) C 97 (APR 22) C 95 (APR 22) C 94 (APR 22) Cr H 7.40 (APR 23) H 7.80 (APR 22) H 7.70 (APR 22) H 7.80 (APR 22) Glu R H 244 (APR 23) H 160 (APR 22) H 262 (APR 22) H 265 (APR 22) Ca 8.4 (APR 23) 8.5 (APR 22) 8.4 (APR 22) 9.2 (APR 22) AST 28 (APR 22) ALT 56 (APR 22) ALK P 82 (APR 22) T Bili 0.6 (APR 22) PTN 7.3 (APR 22) ALB 3.4 (APR 22) . APR 23 07:07 L 129 L 98 C 91 / H 244 4.4 21 H 7.40 \ APR 23 07:07 \ L 9.6 / 5.2 230 / L 28.0 \ FINDINGS: Limited images of the liver parenchyma demonstrate normal echogenicity. The right kidney measures 11 cm in length . It is normal echogenicity. There is no hydronephrosis. The left kidney measures 11 cm in length . It is normal echogenicity. There is no hydronephrosis. IMPRESSION: Normal renal ultrasound. Impression and Plan Dx and Plan 1- LIANE - Oliguric - Baseline Scr 1.3 in past. UA bland in past. On Lisinopril, Bumex and Aldactone at home. improving. CT Abdomen- no hydronephrosis/stone. FeUrea 30% suggestive of pre-renal disease. UPCR 0.31.UA + protein + Blood RBC 11-20. WBC 6-10. 2- Metabolic acidosis - improved. 3- Hyponatremia - pseudohyponatremia from hyperglycemia -corrected 132 4- CAD s/p CABG 5- DM 6- HTN 7- Generalized weakness. Plan: - Continue with IV hydration. Will increase rate - Albumin infusion - Hold lisinopril, Diuretics and Aldactone for now. - Monitor I/O strictly - Avoid nephrotoxic agents. - renal diet. - No emergent need of CAPTION WRITER. Will follow. Electronically signed by Brittany, [facility] Conversion Nuclear Fuels Reclamation Engineer Cerner at 01/24/2023 10:46 AM CDT documented in this encounter Plan of Treatment Not on file documented as of this encounter Visit Diagnoses Not on filedocumented in this encounter Care Teams Respooler Relationship Specialty Start Date End Date Marielos Amaral APRN [address] [address] PCP - General Nurse Practitioner 08/18/23 documented as of this encounter
--- OUTSIDE RECORDS SUMMARY | 2025-05-14 20:32 | XMS_ITS | Encounter Summary ---
Author Organization [employer] ([place], [place], [place], [place]) Address [address] [place] [address] Care Team Providers Care Buckle Strap Puncher Name Role Phone Marielos Amaral KAYE Primary Care Provider Encounter Details Date Type Department Care Team (Late st Contact Info) Description 10/15/2019 Transcribed Document [facility] [place] [address] [place] [address] ProviderHaroldo MD [address] [place] [address] Social History Tobacco Use Types Packs/Day Years Used Date Smoking Tobacco: Never Assessed Sex and Gender Information Value Date Recorded Sex Assigned at Not on file Legal Sex Male 3:45 PM CDT Gender Identity Not on file Sexual Orientation Not on file documented as of this encounter Miscellaneous Notes * Cerner Conversion Note - Haroldo ProviderMD - 10/15/2019 4:08 AM CONSTRUCTION COST ESTIMATOR Spiritual Care Short Form Entered On: 10/15/2019 7:22 EST Performed On: 10/15/2019 4:08 EST by REJI STERLING Chaplain General Information, Spiritual Care Spiritual Care Referred by : Evaluation Analyst follow-up Reason for Visit : Follow Up Ministry Provided to : Patient, Family/Significant other Intervention/Comment/Summary Points : Met with Enriqueta (Gisselle) surg. waiting area charging her phone. Enriqueta notes patient spiritual journey as involved various Saqib centered denominations but Zoroastrian best describes pt's current belief system. Chap. prov. prayer with Enriqueta focusing on pt. recovery and effectiveness of TPA. Taoist Preference : No voodoo REJI STERLING Chaplain - 10/15/2019 7:19 EST Electronically signed by Brittany, [facility] Conversion Laser Beam Cutter Cerner at 01/24/2023 10:18 AM CDT documented in this encounter Plan of Treatment Not on file documented as of this encounter Visit Diagnoses Not on filedocumented in this encounter Care Teams Buckle Strap Puncher Relationship Specialty Start Date End Date Marielos Amaral, KAYE [address] [place] [address] PCP - General Nurse Practitioner 08/18/23 documented as of this encounter
--- OUTSIDE RECORDS SUMMARY | 2025-05-14 20:32 | XMS_ITS | Encounter Summary ---
Author Organization [employer] ([place], [place], [place], [place]) Address [address] [place] [address] Care Team Providers Care Test And Balance Engineer Name Role Phone Marielos Amaral KAYE Primary Care Provider [phone] Encounter Details Date Type Department Care Team (Late st Contact Info) Description 10/14/2019 Transcribed Document [facility] [place] [address] [place] [address] ProviderHaroldo MD [address] [place] [address] Social History Tobacco Use Types Packs/Day Years Used Date Smoking Tobacco: Never Assessed Sex and Gender Information Value Date Recorded Sex Assigned at Not on file Legal Sex Male 3:45 PM CDT Gender Identity Not on file Sexual Orientation Not on file documented as of this encounter Miscellaneous Notes * Cerner Conversion Note - Haroldo ProviderMD - 10/14/2019 2:14 PM CORONER TRANSPORT TECHNICIAN Pain Assessment Entered On: 10/14/2019 15:44 EST Performed On: 10/14/2019 15:42 EST by Ivone Damon RN Intervention Information: nitroglycerin Performed by Ivone Damon RN on 10/14/2019 14:44:00 EST nitroglycerin,0.4mg SubLINgual,Chest Pain Pain Assessment Pain Assessment : Follow-up assessment Ivone Damon RN - 10/14/2019 15:42 EST documented in this encounter Plan of Treatment Not on file documented as of this encounter Visit Diagnoses Not on filedocumented in this encounter Care Teams Test And Balance Engineer Relationship Specialty Start Date End Date Marielos Amaral, INSURANCE PROCESSING CLERK [address] [id number] PCP - General Nurse Practitioner 08/18/23 documented as of this encounter
--- OUTSIDE RECORDS SUMMARY | 2025-05-14 20:32 | XMS_ITS | Encounter Summary ---
Author Organization [employer] ([place], [place], [place], [place]) Address [address] [place] [address] Care Team Providers Care Margarine Churn Operator Name Role Phone Marielos Amaral KAYE Primary Care Provider [phone] Encounter Details Date Type Department Care Team (Late st Contact Info) Description 10/14/2019 Transcribed Document [facility] [place] [address] [place] [address] ProviderHaroldo MD [address] [place] [address] Social History Tobacco Use Types Packs/Day Years Used Date Smoking Tobacco: Never Assessed Sex and Gender Information Value Date Recorded Sex Assigned at Not on file Legal Sex Male 3:45 PM CDT Gender Identity Not on file Sexual Orientation Not on file documented as of this encounter Miscellaneous Notes * Cerner Conversion Note - Haroldo ProviderMD - 10/14/2019 8:18 PM SUPPLIER MANAGER Spiritual Care Assessment Entered On: 10/14/2019 20:20 EST Performed On: 10/14/2019 20:18 EST by LUCY SANDERS Chaplain General Information Initial Visit : Yes Referred by : Code Referral Reason Comment : code stroke Ministry Provided to : Family/Significant other Yazidi Preference : No taoist LUCY SANDERS Chaplain - 10/14/2019 20:18 EST Spiritual Assessment Spiritual Assessment Comment/Summary Points : responded to code stroke page @ 16:00. supportive presence and conversation with patient's , Enriqueta. 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 wood setter care provided in ED during assessment of stroke. Spirital Assessment Comment/Summary Report : SPIRITUAL ASSESSMENT COMMENT/SUMMARY No qualifying data available. LUCY SANDERS, - 10/14/2019 20:18 EST Electronically signed by [facility], [facility] Conversion Edge Setter Cerner at 01/24/2023 10:40 AM CDT documented in this encounter Plan of Treatment Not on file documented as of this encounter Visit Diagnoses Not on filedocumented in this encounter Care Teams Margarine Churn Operator Relationship Specialty Start Date End Date Marielos Amaral, KAYE [address] [phone] PCP - General Nurse Practitioner 08/18/23 documented as of this encounter
--- OUTSIDE RECORDS SUMMARY | 2025-05-14 20:32 | XMS_ITS | Encounter Summary ---
Author Organization [employer] ([place], [place], [place], [place]) Address [address] [place] [address] Care Team Providers Care Application Assistant Name Role Phone Marielos Amaral QUALITY CONTROL CLERK Primary Care Provider Encounter Details Date Type Department Care Team (Late st Contact Info) Description 10/14/2019 Transcribed Document [facility] [place] [address] [place] [address] ProviderHaroldo MD [address] [place] [address] Social History Tobacco Use Types Packs/Day Years Used Date Smoking Tobacco: Never Assessed Sex and Gender Information Value Date Recorded Sex Assigned at Not on file Legal Sex Male 3:45 PM CDT Gender Identity Not on file Sexual Orientation Not on file documented as of this encounter Miscellaneous Notes * Cerner Conversion Note - Haroldo Warren MD - 10/14/2019 4:59 PM INSURANCE EXAMINER Swallow Evaluation Entered On: 10/15/2019 9:46 EST Performed On: 10/15/2019 9:41 EST by BIPIN LEE SLP General Information Visit Type, POLYGRAPH EXAMINER : Initial evaluation Patient Orders : Speech Language Pathology Swallow Evaluation and Treatment -111 Start: 10/14/19 16:59:00 EST, Routine, For Swallow Eval and Treat, stroke - TYSHAWN BRANDT MD-SIN Admission Date : Admission Date/Time: 10/14/19 17:19:00 Medical Chart Reviewed, POLYGRAPH EXAMINER : Yes Personal Devices : Personal Devices No Devices Recorded Assistive Devices : Assistive Devices No Devices Recorded Active Diagnoses : 10/14/2019 12:00 Cerebral infarction, unspecified 10/14/2019 12:00 Chest pain 10/14/2019 12:00 Chest pain, unspecified 10/14/2019 12:00 Hypertensive emergency 10/14/2019 12:00 Hypertensive urgency 10/14/2019 12:00 Other symptoms and signs involving the musculoskeletal system Therapy Diagnosis, POLYGRAPH EXAMINER : normal swallow function Previous Speech/Language Evaluations : normal last admission with CVA Previous Swallow Precautions : 02/06/19 regular diet recommended Previous Cognitive Evaluations : normal on last admission with CVA Diet/Intake Prior to Current Admission : regular Diet/Intake During Current Admission : regular Intubation Comment, POLYGRAPH EXAMINER : landen Vital Signs RTF : Vitals Temp BP Pulse RR SpO2 FIO2 Date Wt(kg) Wt(lb) 10/15 08:30 ---- 141/74 --- 23 94 --- 10/14 86.4 190 10/15 08:00 ---- 142/71 --- 25 95 --- 10/14 86.4 190 10/15 07:55 ---- ----- 77 -- --- --- 10/15 07:30 ---- 121/58 --- 21 93 --- 10/15 07:00 ---- 122/59 --- 19 90 --- 24 Hr Tmax: No Data Available 36 Hr Tmax: No Data Available Vital Signs are the last 5 in the past 48 hours. Weights display the last 5 within 7 days. Initial Wt: 10/14 86.4 kg 190 lb BIPIN LEE SLP - 10/15/2019 9:41 EST General Status Patient Received Status, POLYGRAPH EXAMINER : Long sitting in bed Patient Left Status, POLYGRAPH EXAMINER : Long sitting in bed RN/PCT Informed Comment, POLYGRAPH EXAMINER : discussed with BIPIN HURLEY SLP - 10/15/2019 9:41 EST Pain Assessment Pain Scaled Used : 0-10 Pain scale Pain Score Pre-Intervention : 0 BIPIN LEE SLP - 10/15/2019 9:41 EST Image 1 - Images currently included in the form version of this document have not been included in the text rendition version of the form. Oral Mechanism Dysarthria : No Resonance Types : Appropriate Oral Mechanism for Daily Living : Intact Facial Appearance: : Symmetrical Labial Appearance : Symmetrical Labial Function : All function intact Dental/Orthodontia : Teeth, own Condition of Dentition : Teeth, broken Lingual Appearance : Symmetrical Lingual Function : All function intact Soft Palate (Velum) Appearance : Symmetrical Soft Palate Function : Function intact Hard Palate Appearance/ Structure : Structure intact Mandible Appearance/Structure : Intact Mandibular Function : All function intact BIPIN LEE SLP - 10/15/2019 9:41 EST Bedside Swallow Swallow Outcome BS Swallow : Intact Head Control BS Swallow : Neutral head position Presentation Style BS Swallow : Self Swallow Position BS Swallow : Upright 90 degrees Trunk Control BS Swallow : Upright centered position Consistencies Trialed BS Swallow : Ice chips, Thin by cup, Pureed, Regular solids BIPIN LEE SLP - 10/15/2019 9:41 EST Swallow Impressions Impressions, BS Swallow : No evidence of dysphagia present Further Evaluation Required, POLYGRAPH EXAMINER : none indciated at this time Swallowing Outcome Measures : Functional Oral Intake Scale (FOIS) Functional Oral Intake Scale (FOIS) : Level VII Bedside Swallow Overall Impressions : The patient was seen bedside for a swallow eval on the stroke order protocol. He is alert, oriented and able to follow all commands, speech is clear and fluent with no evidence of aphasia, apraxia, dysarthria or cognitive deficits. Swallow with judged to be normal for all consistencies with no evidence of dysphagia or aspiration. Recommend regular diet with thin liquid to continue. BIPIN LEE SLP - 10/15/2019 9:41 EST Swallow Recommendations Recommended Diet Type, SwRec : Regular Recommended Liquid Diet, SwRec : Thin Feeding Presentation Style, SwRec : No restrictions Supervision Level w/Meals, SwRec : Independent, complete Recommended Med Present, SwRec : Other: per patient preference Swallow Recommendation Comment : no follow up needed unless status declines BIPIN LEE SLP - 10/15/2019 9:41 EST Therapy Indication Assessment POLYGRAPH EXAMINER Indicated : No POLYGRAPH EXAMINER Not Indicated : At prior level of function POLYGRAPH EXAMINER Interdisciplinary Consultation Needs : No Potential Barriers to POLYGRAPH EXAMINER : None evident POLYGRAPH EXAMINER Rehabilitation Potential : At prior level of function BIPIN LEE SLP - 10/15/2019 9:41 EST Swallow Plan/Goals Treatment Frequency, POLYGRAPH EXAMINER : Other: no follow up needed BIPIN LEE SLP - 10/15/2019 9:41 EST Education Barriers To Learning : None evident Individuals Taught : Patient Readiness to Learn : Cooperative Baseline Knowledge of Topic : None Readiness to Learn : Explanation Learning Style Preferences Patient : None BIPIN LEE SLP - 10/15/2019 9:41 EST POLYGRAPH EXAMINER Education Assessment Grid 1 Aspiration : Verbalizes understanding Diet Recommendation : Verbalizes understanding Evaluation Results : Verbalizes understanding BIPIN LEE SLP - 10/15/2019 9:[address] [facility] Charges Evaluation Swallowing Function : 1 BIPIN LEE SLP - 10/15/2019 9:41 EST Electronically signed by [facility], [facility] Conversion Replenishment Analyst Cerner at 01/24/2023 10:30 AM CDT documented in this encounter Plan of Treatment Not on file documented as of this encounter Visit Diagnoses Not on filedocumented in this encounter Care Teams Application Assistant Relationship Specialty Start Date End Date Marielos Amaral, KAYE [address] [place] [address] PCP - General Nurse Practitioner 08/18/23 documented as of this encounter
--- OUTSIDE RECORDS SUMMARY | 2025-05-14 20:32 | XMS_ITS | Encounter Summary ---
Author Organization [employer] ([place], [place], [place], [place]) Address [address] [place] [address] Care Team Providers Care Nuclear Equipment Research Engineer Name Role Phone Marielos Amaral KAYE Primary Care Provider Encounter Details Date Type Department Care Team (Late st Contact Info) Description 10/14/2019 Transcribed Document [facility] [place] [address] [place] [address] ProviderHaroldo MD [address] [place] [address] Social History Tobacco Use Types Packs/Day Years Used Date Smoking Tobacco: Never Assessed Sex and Gender Information Value Date Recorded Sex Assigned at Not on file Legal Sex Male 3:45 PM CDT Gender Identity Not on file Sexual Orientation Not on file documented as of this encounter Miscellaneous Notes * Cerner Conversion Note - Haroldo ProviderMD - 10/14/2019 1:50 PM ASSISTANT MANAGER PT ED Triage Entered On: 10/14/2019 14:07 EST Performed On: 10/14/2019 13:50 EST by ASHLEY ZUÑIGA ED Triage Across the Room Chief Complaint : c/o L sided, non-radiating dull chest pressure constant in nature onset approx 2 weeks ago, reproduceable with movement of arm or laying on side. Triage Date/Time : 10/14/2019 13:50 EST ASHLEY ZUÑIGA - 10/14/2019 14:04 EST DCP GENERIC CODE Tracking Acuity : 2 - Emergent Tracking Group : [facility] ED ASHLEY ZUÑIGA - 10/14/2019 14:04 EST Mode of Arrival : Ambulatory Transported to ED by : Private vehicle To Room Via : Wheelchair Accompanied By : Spouse ED Vital Signs : Document Height & Weight : Document ED Allergies : Document ED Reason for Visit : Document Tetanus Immunization : Greater than 5 years ASHLEY ZUÑIGA - 10/14/2019 14:04 EST Infectious Disease History Infectious Disease History : Chicken pox/Shingles, Influenza, Measles, Mumps, Rubella Isolation Needed : Standard Fever/Chills Last 48 Hours : No Travel To Regions with Travel Advisories : No Travel Outside [place] Within Last 30 Days : No Contact With Traveler to Advisory Region : No Tuberculosis Symptoms : None ASHLEY ZUÑIGA - 10/14/2019 14:04 EST Vital Signs ED Temperature Source : Oral Temperature Mode : Fahrenheit Temperature, Fahrenheit : 97.9 Deg F Clinical Temperature, C : 36.6 Deg C Oxygen Therapy Mode : Room air Peripheral Pulse Rate : 80 bpm Respiratory Rate : 20 Breaths/Min Systolic Blood Pressure : 198 mmHg (HI) Diastolic Blood Pressure : 102 mmHg (HI) Oxygen Saturation : 98 % ASHLEY ZUÑIGA - 10/14/2019 14:04 EST Allergy (As Of: 10/14/2019 14:07:48 EST) Allergies (Active) amoxicillin Estimated Onset Date: Unspecified ; Created By: RAVEN REILLY RN; Reaction Status: Active ; Category: Drug ; Substance: amoxicillin ; Type: Allergy ; Updated By: RAVEN REILLY RN; Reviewed Date: 10/14/2019 14:05 EST Mucinex Estimated Onset Date: Unspecified ; Created By: RAVEN REILLY RN; Reaction Status: Active ; Category: Drug ; Substance: Mucinex ; Type: Allergy ; Updated By: RAVEN REILLY RN; Reviewed Date: 10/14/2019 14:05 EST Diagnosis Control ED (As Of: 10/14/2019 14:07:48 EST) Problems(Active) Angina (SNOMED CT :393541115 ) Name of Problem: Angina ; Recorder: RAVEN REILLY RN; Confirmation: Confirmed ; Classification: Patient Stated ; Code: [id number] ; Contributor System: ROKT ; Last Updated: 07/20/2014 9:33 EDT ; Life Cycle Date: 07/20/2014 ; Life Cycle Status: Active ; Vocabulary: SNOMED CT Coronary artery disease (SNOMED CT :2974127237 ) Name of Problem: Coronary artery disease ; Recorder: RAVEN REILLY RN; Confirmation: Confirmed ; Classification: Patient Stated ; Code: [id number] ; Contributor System: [employer] BroadbandChart ; Last Updated: 07/20/2014 9:33 EDT ; Life Cycle Date: 07/20/2014 ; Life Cycle Status: Active ; Vocabulary: SNOMED CT Diabetes mellitus type II (SNOMED CT :42784339 ) Name of Problem: Diabetes mellitus type II ; Recorder: RAVEN REILLY RN; Confirmation: Confirmed ; Classification: Patient Stated ; Code: 59918300 ; Contributor System: PowerChart ; Last Updated: 07/20/2014 9:35 EDT ; Life Cycle Date: 07/20/2014 ; Life Cycle Status: Active ; Vocabulary: SNOMED CT Enlarged prostate (SNOMED CT :296390291 ) Name of Problem: Enlarged prostate ; Recorder: RAVEN REILLY RN; Confirmation: Confirmed ; Classification: Patient Stated ; Code: [id number] ; Contributor System: PowerChart ; Last Updated: 07/20/2014 9:34 EDT ; Life Cycle Date: 07/20/2014 ; Life Cycle Status: Active ; Vocabulary: SNOMED CT GERD - Gastro-esophageal reflux disease (SNOMED CT :1424930339 ) Name of Problem: GERD - Gastro-esophageal reflux disease ; Recorder: RAVEN REILLY RN; Confirmation: Confirmed ; Classification: Patient Stated ; Code: [id number] ; Contributor System: PowerChart ; Last Updated: 07/20/2014 9:34 EDT ; Life Cycle Date: 07/20/2014 ; Life Cycle Status: Active ; Vocabulary: SNOMED CT Heart failure (SNOMED CT :808177271 ) Name of Problem: Heart failure ; Recorder: RAVEN REILLY RN; Confirmation: Confirmed ; Classification: Patient Stated ; Code: 390247585 ; Contributor System: [employer]Chart ; Last Updated: 07/20/2014 9:33 EDT ; Life Cycle Date: 07/20/2014 ; Life Cycle Status: Active ; Vocabulary: SNOMED CT Heart murmur (SNOMED CT :320953520 ) Name of Problem: Heart murmur ; Recorder: RAVEN REILLY RN; Confirmation: Confirmed ; Classification: Patient Stated ; Code: 602940714 ; Contributor System: PowerChart ; Last Updated: 07/20/2014 9:33 EDT ; Life Cycle Date: 07/20/2014 ; Life Cycle Status: Active ; Vocabulary: SNOMED CT History of obstructive sleep apnea (IMO :10525818 ) Name of Problem: History of obstructive sleep apnea ; Recorder: SYSTEM, SYSTEM; Confirmation: Confirmed ; Classification: Medical ; Code: 21350629 ; Last Updated: 01/20/2019 12:39 EDT ; Life Cycle Date: 01/20/2019 ; Life Cycle Status: Active ; Vocabulary: IMO Hyperlipidemia (SNOMED CT :42655840 ) Name of Problem: Hyperlipidemia ; Recorder: RAVEN REILLY RN; Confirmation: Confirmed ; Classification: Patient Stated ; Code: 53044291 ; Contributor System: [employer]bandChart ; Last Updated: 09/03/2017 13:38 EST ; Life Cycle Date: 07/20/2014 ; Life Cycle Status: Active ; Vocabulary: SNOMED CT Hypertension (SNOMED CT :37930638 ) Name of Problem: Hypertension ; Recorder: RAVEN REILLY RN; Confirmation: Confirmed ; Classification: Patient Stated ; Code: 68009494 ; Contributor System: PowerChart ; Last Updated: 07/20/2014 9:33 EDT ; Life Cycle Date: 07/20/2014 ; Life Cycle Status: Active ; Vocabulary: SNOMED CT Impaired vision (SNOMED CT :20544305 ) Name of Problem: Impaired vision ; Recorder: RAVEN REILLY RN; Confirmation: Confirmed ; Classification: Patient Stated ; Code: 91046550 ; Contributor System: PowerChart ; Last Updated: 07/20/2014 9:32 EDT ; Life Cycle Date: 07/20/2014 ; Life Cycle Status: Active ; Vocabulary: SNOMED CT Migraine (SNOMED CT :54082001 ) Name of Problem: Migraine ; Recorder: RAVEN REILLY RN; Confirmation: Confirmed ; Classification: Patient Stated ; Code: 75184086 ; Contributor System: PowerChart ; Last Updated: 07/20/2014 9:35 EDT ; Life Cycle Date: 07/20/2014 ; Life Cycle Status: Active ; Vocabulary: SNOMED CT Stented coronary artery (SNOMED CT :2818311878 ) Name of Problem: Stented coronary artery ; Recorder: RAVEN REILLY RN; Confirmation: Confirmed ; Classification: Patient Stated ; Code: [id number] ; Contributor System: ROKT ; Last Updated: 07/20/2014 9:33 EDT ; Life Cycle Date: 07/20/2014 ; Life Cycle Status: Active ; Vocabulary: SNOMED CT Diagnoses(Active) Chest pain Date: 10/14/2019 ; Diagnosis Type: Reason For Visit ; Confirmation: Complaint of ; Clinical Dx: Chest pain ; Classification: Medical ; Clinical Service: Emergency medicine ; Code: PNED ; Probability: 0 ; Diagnosis Code: [id number] ED Height and Weight Height Source : Stated Height Entry Format : [place] Height, Feet : 5 ft(Converted to: 152 cm, 60 Inch) Height, Inches : 9 Inch(Converted to: 0 ft 9 Inch, 22.86 cm) Clinical Height : 175.26 cm Weight Source, ED : Critical estimated dosing weight Weight Entry Format : [place] Weight, Pounds : 190 lb Clinical Dosing Weight : 86.36 kg Body Surface Area (BSA) : 2.02 m2 Body Mass Index : 28.1 kg/m2 (HI) [place] Body Weight (IBW) : 69.73 kg ASHLEY ZUÑIGA - 10/14/2019 14:04 EST documented in this encounter Plan of Treatment Not on file documented as of this encounter Visit Diagnoses Not on filedocumented in this encounter Care Teams Nuclear Equipment Research Engineer Relationship Specialty Start Date End Date Marielos Amaral APRN [address] [address] PCP - General Nurse Practitioner 08/18/23 documented as of this encounter
--- OUTSIDE RECORDS SUMMARY | 2025-05-14 20:32 | XMS_ITS | Encounter Summary ---
Author Organization [employer] ([place], [place], [place], [place]) Address [address] [place] [address] Care Team Providers Care Fraud Manager Name Role Phone Munir Marielos RESTREPO Primary Care Provider Encounter Details Date Type Department Care Team (Late st Contact Info) Description 04/23/2022 Transcribed Document [facility] [place] Medicine [address] [place] [address] ProviderHaroldo MD [address] [place] [address] Social History Tobacco Use Types [...] Do you speak a language other than [place] at [facility]? Yes 10/30/2024 Do you want help [...] Conversion Note - Historical Provider, - 04/23/2022 3:25 PM CDT Treatment Intervention, PT Entered On: 04/25/2022 11:58 EDT Performed On: 04/25/2022 12:01 EDT by FANY FREEMAN, PT General Information, PT Visit Type, PT : Treatment Note Patient Orders : Order Date Order Ordering 04/22/2022 13:38 PT Evaluation and Treatment Ordered By: ASHLEY GALARZA PA 04/23/2022 15:25 PT Additional Treatment Ordered By: USHA REICH, JEAN Active Diagnoses : 04/22/2022 12:00 Acute kidney failure, unspecified 04/22/2022 12:00 Cervicalgia 04/22/2022 12:00 Hypotension, unspecified 04/22/2022 12:00 Other symptoms and signs involving the musculoskeletal system 04/22/2022 12:00 Pain in right shoulder 04/22/2022 12:00 Paresthesia of skin 04/22/2022 12:00 Potential stroke 04/22/2022 12:00 Syncope and collapse 04/22/2022 12:00 Syncope/Near syncope Therapy Diagnosis, PT : decreased endurance Admission Date : 04/22/2022 12:30 Personal Devices : Personal Devices No Devices Recorded Assistive Devices : Assistive Devices No Devices Recorded Precautions in Place : Fall prevention measures FANY FREEMAN, PT - 04/25/2022 11:53 EDT General Status Treatment End Time : 04/25/2022 12:01 EDT Treatment Time : 32 Minute(s) Actual Treatment Time : 28 Minute(s) FANY FREEMAN PT - 04/25/2022 11:58 EDT Patient Received Status : Supine in bed Treatment Start Time : 04/25/2022 11:29 EDT Patient Left Status : Up in chair, RN/PCT informed, Family/Visitors at bedside, All needs met and within reach FANY FREEMAN, PT - 04/25/2022 11:53 EDT Functional Mobility Mobility Grid Supine to Sit : Rehab Complete independence Sit to Stand : Rehab Modified independence Stand to Sit : Rehab Modified independence FANY FREEMAN, PT - 04/25/2022 11:53 EDT Gait Training/Assessment, PT Weight Bearing Status : Full Gait Assistance Level : Supervision Walking Distance : 210' Ambulatory Devices : Gait belt, Walker, front wheel Gait Deviations : No Gait Training Comment : slight continued evidence of 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 FANY FREEMAN, PT - 04/25/2022 11:53 EDT Edu Topics Physical Therapy Education Grid Bed Mobility Training : Returns demonstration Gait Training : Returns demonstration Transfer Training : Returns demonstration Use of Assistive Device : Returns demonstration FANY FREEMAN, PT - 04/25/2022 11:53 EDT Plan of Care, PT PT Tx Plan/Goals Established w Patient : Yes FANY FREEMAN, PT - 04/25/2022 11:53 EDT Surgical Supervisor Goals Mobility/Bed Mobility LTG PT Grid Goal #1 Goal #2 Activity : Supine to sit Sit to stand Assist : Independent, modified Independent, modified Equipment : Belt, gait, Walker, front wheel Date to Meet : 05/07/2022 EDT 05/07/2022 EDT Goal Status : Goal met Goal met Date Met : 04/24/2022 EDT 04/25/2022 EDT FANY FREEMAN, PT - 04/25/2022 11:53 EDT FANY FREEMAN, PT - 04/25/2022 11:53 EDT Transfer LTG Grid Goal #1 Destination : Chair, with arms Type : Other: step-to Assist : Independent, modified Equipment : Belt, gait, Walker, front wheel Date to Meet : 05/07/2022 EDT Goal Status : Goal met FANY FREEMAN PT - 04/25/2022 11:53 EDT Ambulation LTG Grid Goal #1 Device : Walker, front wheel Distance : 150' Assist : Independent, modified Date to Meet : 05/07/2022 EDT Goal Status : Progressing, continue FANY FREEMAN, PT - 04/25/2022 11:53 EDT Treatment Note Additional Objective Information : The patient anticipates discharge home tomorrow. Assessment : The patient appears capable of safe home level mobility based ont today's perfromance. If he feels the need for further rehab outpatient is likley to be the most appropriate. Plan for Treatment : cont poc FANY FREEMAN, PT - 04/25/2022 11:58 EDT Subjective Comment : The patient reports that he has no concerns about his ability to ascend/descend this 4 step entry at home. FANY FREEMAN, PT - 04/25/2022 11:53 EDT Pain Assessment Pain Scaled Used : 0-10 Pain scale Pain Score Pre-Intervention : 0 Pain Score During-Intervention : 0 Pain Score Post-Intervention. : 0 FANY FREEMAN, PT - 04/25/2022 11:58 EDT Image 1 - Images currently included in the form version of this document have not been included in the text rendition version of the form. Anticipated Discharge Needs, OT/PT Anticipated Discharge to : Home, with family care FANY FREEMAN, PT - 04/25/2022 11:[address] [facility] PT Charges PT Therap. Exercise 15 min : 1 PT Ther Activities Ea 15 Min : 1 FANY FREEMAN PT - 04/25/2022 11:58 EDT Electronically signed by Renetta Soto Conversion Sustainability Executive Director Cerner at 01/24/2023 10:41 AM CDT documented in this encounter Plan of Treatment Not on file documented as of this encounter Visit Diagnoses Not on filedocumented in this encounter Care Teams Fraud Manager Relationship Specialty Start Date End Date Marielos Amaral, KAYE [address] [address] PCP - General Nurse Practitioner 08/18/23 documented as of this encounter
--- OUTSIDE RECORDS SUMMARY | 2025-05-14 20:32 | XMS_ITS | Encounter Summary ---
Author Organization [employer] ([place], [place], [place], [place]) Address [address] [place] [address] Care Team Providers Care Steam Heating Installer Name Role Phone Marielos Amaral APRN Primary Care Provider [phone] Encounter Details Date Type Department Care Team (Late st Contact Info) Description 10/14/2019 Transcribed Document [facility] [place] Family Medicine [address] [place] [address] ProviderHaroldo MD [address] [place] [address] Social History Tobacco Use Types Packs/Day Years Used Date Smoking Tobacco: Never Assessed Sex and Gender Information Value Date Recorded Sex Assigned at Not on file Legal Sex Male 3:45 PM CDT Gender Identity Not on file Sexual Orientation Not on file documented as of this encounter Miscellaneous Notes * Cerner Conversion Note - Historical ProviderMD - 10/14/2019 2:15 PM CONCRETE TECHNICIAN Patient: ZACKARY ANTOINE Age: 68 years Sex: Male : 1950 Associated Diagnoses: Stroke; Right leg weakness; Chest pain; Hypertensive emergency Author: ADAM LOPEZ DO Basic Information Time seen: Date 10/14/2019, Immediately upon arrival. History source: Patient, significant other. Arrival mode: Private vehicle. History limitation: None. Additional information: Chief Complaint from Nursing Triage Note : Chief Complaint 10/14/2019 13:50 EST Chief Complaint c/o L sided, non-radiating dull chest pressure constant in nature onset approx 2 weeks ago, reproduceable with movement of arm or laying on side. . History of Present Illness The patient presents with chest pain. The onset was 2 weeks ago. The course/duration of symptoms is constant. Location: Left lateral chest. Radiating pain: none. The character of symptoms is dull and burning. The degree at onset was minimal. The degree at maximum was minimal. The degree at present is minimal. The exacerbating factor is movement. The relieving factor is none. Risk factors consist of coronary artery disease, hypertension, diabetes mellitus and hyperlipidemia. Prior episodes: coronary artery disease. Associated symptoms: none. Zackary Antoine is a 68-year-old male with past medical history of coronary artery disease with 2 prior stents followed by CABG 3 years ago, history of hypertension, hyperlipidemia, type 2 diabetes mellitus, paroxysmal atrial fibrillation, stroke in February 2019 with right arm and sided weakness who presents today with a dull left-sided chest pain for 2 weeks that he says has been constant. He states it is worse when he lifts his left arm and lays on his left side. He denies any exertional symptoms. He denies any associated symptoms S says shortness of breath nausea jaw pain shoulder pain or radiation of his pain. He denies any abdominal pain nausea vomiting cough or fever. He states it feels different than the chest pain he had when he had his coronary disease and stents.. Review of Systems Additional review of systems information: All other systems reviewed and otherwise negative. Health Status Allergies: Allergic Reactions (Selected) Severity Not Documented Amoxicillin- No reactions were documented. Mucinex- No reactions were documented.. Medications: (Selected) Inpatient Medications Ordered Normal Saline Flush: 10 mL, IV Push, See Comment aspirin: 324 mg, Chew, 1-Time nitroglycerin: 0.4 mg, SubLINgual, 1-Time, PRN: Chest Pain Prescriptions Prescribed Eliquis 5 mg oral tablet: 1 Tab, Oral, [id number], 60 Tab, 0 Refill(s) Toprol-XL 25 mg oral tablet, extended release: 1 Tab, Oral, Daily, for 30 Day(s), 30 Tab, 0 Refill(s) amiodarone 200 mg oral tablet: 1 Tab, Oral, Daily, 30 Tab, 0 Refill(s) lisinopril 10 mg oral tablet: 1 Tab, Oral, Daily, for 30 Day(s), 30 Tab, 0 Refill(s) Documented Medications Documented Eliquis 5 mg oral tablet: 1 Tab, Oral, BID, 60 Tab, 0 Refill(s) Flomax 0.4 mg oral capsule: 1 Cap, Oral, Daily, 0 Refill(s) Januvia 100 mg oral tablet: 1 Tab, Oral, Daily, 0 Refill(s) Toprol-XL 25 mg oral tablet, extended release: Tab, Oral, Daily, 0 Refill(s) Vitamin B12 1000 mcg oral tablet: 1 Tab, Oral, Daily, 30 Tab, 0 Refill(s) Vitamin D3 1000 intl units oral tablet: 1 Tab, Oral, Daily, 30 Tab, 0 Refill(s) amiodarone 200 mg oral tablet: 1 Tab, Oral, Daily, 30 Tab, 0 Refill(s) aspirin 81 mg oral delayed release tablet: 1 Tab, Oral, Daily, 0 Refill(s) atorvastatin 40 mg oral tablet: 1 Tab, Oral, At Bedtime, 0 Refill(s) glimepiride 4 mg oral tablet: 1 Tab, Oral, BID, 0 Refill(s) lisinopril 10 mg oral tablet: Tab, Oral, Daily, 0 Refill(s) metFORMIN 1000 mg oral tablet: 1 Tab, Oral, BID, 60 Tab, 0 Refill(s) omeprazole 40 mg oral delayed release capsule: 1 Cap, Oral, Daily, before a meal, 30 Cap, 0 Refill(s). Past Medical/ Family/ Social History Medical history Reviewed as documented in chart. Surgical history: Cardiac catheterization. hernia repair. Tonsillectomy. Cholecystectomy; ([id number]). Appendectomy. left arm surgery. Coronary stents., Reviewed as documented in chart. Family history: No family history items have been selected or recorded., Reviewed as documented in chart. Social history: Social & Psychosocial Habits Alcohol 04/14/2019 Alcohol Use History, Social Habits Yes Date/Time of Last Drink Quit in 2008 Alcohol Use in Last Twelve Months No Nutrition/Health 04/14/2019 Type of diet: Diabetic Caffeine intake amount: 2 cups a day. Substance Abuse 01/20/2019 Recreational Drug Use History No Recreational Drug Use Last 12 Months No Tobacco 07/20/2014 Tobacco Use Within Last Twelve Months Cigarettes Smoking Status Current every day smoker Years of Tobacco Use 46 Packs/Tins Daily .5 02/07/2017 Smoking Status Current every day smoker Smoking Frequency Within Last 30 Days Five or more cigarettes p Tobacco Use Within Last Twelve Months No Years of Tobacco Use 50 Packs/Tins Daily 1 Month Tobacco Last Used 02/2017 Second Hand Smoke Exposure Yes Smokeless Tobacco Use in Last 30 Days Yes Smokeless Tobacco Use History None 04/14/2019 Smoking Status Former smoker, quit more Smokeless Tobacco Status Smokeless tobacco user wi Smokeless Tobacco Use History Snuff/Dip Years of Tobacco Use 43 Packs/Tins Daily 0.5 , Reviewed as documented in chart. Problem list: Active Problems (13) Angina Coronary artery disease Diabetes mellitus type II Enlarged prostate GERD - Gastro-esophageal reflux disease Heart failure Heart murmur History of obstructive sleep apnea Hyperlipidemia Hypertension Impaired vision Migraine Stented coronary artery , per nurse's notes. Physical Examination Vital Signs Time: 10/14/2019 14:16:00. Vital Signs/Vital Measures 10/14/2019 13:50 EST Systolic Blood Pressure 198 mmHg HI Diastolic Blood Pressure 102 mmHg HI Temperature Source Oral Temperature Mode Fahrenheit Temperature, Fahrenheit 97.9 Deg F Clinical Temperature, C 36.6 Deg C Peripheral Pulse Rate 80 bpm Respiratory Rate 20 Breaths/Min Oxygen Saturation 98 % Oxygen Therapy Mode Room air . Measurements 10/14/2019 13:50 EST Height Source Stated Height Entry Format [place] Height/Length, PALAUAN (ft) 5 ft Height/Length PALAUAN 9 Inch CLINICALHEIGHT 175.26 cm [place] Body Weight 69.73 kg Weight Source, ED Critical estimated dosing weight Weight Entry Format [place] Weight Colombian lb 190 lb CLINICALWEIGHT 86.36 kg Body Surface Area (BSA) 2.02 m2 Body Mass Index 28.1 kg/m2 HI . Oxygen Saturation 10/14/2019 13:50 EST Oxygen Saturation 98 % . General: Alert, no acute distress. Skin: Warm, dry, pink, intact, no pallor, no rash, normal for ethnicity. Head: Normocephalic, atraumatic. Neck: Supple, trachea midline, no tenderness, no JVD, no carotid bruit. Eye: Pupils are equal, round and reactive to light, extraocular movements are intact, normal conjunctiva, vision unchanged. Ears, nose, mouth and throat: Tympanic membranes clear, oral mucosa moist, no pharyngeal erythema or exudate. Cardiovascular: Regular rate and rhythm, No murmur, Normal peripheral perfusion, No edema. Respiratory: Lungs are clear to auscultation, respirations are non-labored, breath sounds are equal, Symmetrical chest wall expansion. Chest wall: No tenderness, No deformity. Back: Nontender, Normal range of motion, Normal alignment, no step-offs. Musculoskeletal: Normal ROM, normal strength, no tenderness, no swelling, no deformity. Gastrointestinal: Soft, Nontender, Non distended, Normal bowel sounds, No organomegaly. Genitourinary: No tenderness. Neurological: Alert and oriented to person, place, time, and situation, No focal neurological deficit observed, CN II-XII intact, normal sensory observed, normal motor observed, normal speech observed, normal coordination observed. Lymphatics: No lymphadenopathy. Psychiatric: Cooperative, appropriate mood & affect, normal judgment, non-suicidal. Medical Decision Making Differential Diagnosis: Unstable angina, angina, atypical chest pain, gastroesophageal reflux disease, costochondritis, pleurisy, chest wall pain. Documents reviewed: Emergency department nurses' notes, emergency department records, prior records. Electrocardiogram: Time 10/14/2019 14:04:00, rate 82, normal sinus rhythm, no ectopy, normal CO & QRS intervals, EP Interp, ns st and tw abnormality. Results review: Lab results : Lab Results 10/14/2019 16:06 EST PT 10.3 Second(s) INR 1.0 PTT 23.0 Second(s) LOW 10/14/2019 14:46 EST Sodium Level 138 mmol/L Potassium Level 4.1 mmol/L Chloride Level 106 mmol/L Carbon Dioxide Level 25 mmol/L Anion Gap 11 Glucose Level 172 mg/dL HI Blood Urea Nitrogen 20 mg/dL Creatinine Level 1.70 mg/dL HI eGFR 49 mL/min/1.73m2 LOW eGFR NonAfrican 40 mL/min/1.73m2 LOW Bun/Creatinine 11.8 Calcium Level 8.6 mg/dL Protein Total 7.3 Gram/dL Albumin Level 3.6 Gram/dL Globulin 3.7 Gram/dL A/G Ratio 1.0 LOW Bilirubin Total 0.4 mg/dL Alk Phos 87 Units/Liter AST 16 Units/Liter ALT 30 Units/Liter Troponin I Ultra <0.015 ng/mL WBC 7.8 K/uL RBC 4.07 Million/uL LOW Hgb 12.6 g/dL LOW Hct 37.5 % LOW MCV 92.1 fL MCH 31.0 pg MCHC 33.6 Gram/dL Platelet Count 244 K/uL MPV 10.4 fL RDW 13.9 % Neut % 70.2 % Neut # 5.44 K/uL Lymph % 19.2 % LOW Lymph # 1.49 K/uL [place] % 8.9 % [place] # 0.69 K/uL Eos % 1.4 % Eos # 0.11 Baso % 0.3 % Baso # 0.02 Slide Review No . Chest X-Ray: Time reported 10/14/2019 17:04:00, no acute disease process, interpretation by Emergency Physician. Radiology results: Radiology Results (Last 48 hours) [id number] -- 10/14/2019 13:50 CR Chest 1 Vw Portable (10/14/2019 14:21) [...] these findings at the time of dictation. . Impression and Plan Diagnosis Stroke - Discharge, Emergency medicine, Medical Right leg weakness - Discharge, Emergency medicine, Medical Chest pain - Discharge, Emergency medicine, Medical Hypertensive emergency - Discharge, Emergency medicine, Medical Plan Condition: Critical. Disposition: Admit Admit/Transfer/Discharge: Admit to Inpatient (Order): Start: 10/14/2019 17:06 EST, Admit reason: stroke s/p tpa/cp, Estimated length of stay 2 Midnights or LONGER, Level of Care: Critical Care Adult, Admitting: PETRA TORRES MD-INT. Counseled: Patient, Family. Notes: Emergency Department course, an EKG was performed showing nonspecific findings. The patient's heart score is moderate to high risk given his history of prior coronary disease his age and multiple risk factors. His initial troponin is negative. Chest x-ray was normal. His chest pain improved slightly with nitroglycerin. While in the emergency department at approximately 3:55 PM he developed onset of right leg weakness. There is no associated arm weakness change in vision or speech or facial droop. Immediately a stroke alert was called neurology was counseled that and the patient was given TPA after his initial CT head was negative. CT chest to rule out dissection was also performed prior to TPA and was negative. Consideration for TPA was given the patient did not have any contraindications risks and benefits described to the patient and the patient elected to receive TPA for his right leg weakness and stroke symptoms. After his TPA he is tolerating this well with mild improvement of his symptoms currently. He is also on a Cardene drip for hypertension as his blood pressure has been elevated. Patient does take Eliquis however he has not had any since last Friday, over a week ago. Patient is no longer having any chest pain. He'll be admitted to the ICU and medical condition status post receiving TPA for stroke and right leg weakness. He'll also be evaluated for his chest pain as well. Total Time Total time: 45 min, Separate from teaching time, Exclusive of procedure time. documented in this encounter Plan of Treatment Not on file documented as of this encounter Visit Diagnoses Not on filedocumented in this encounter Care Teams Steam Heating Installer Relationship Specialty Start Date End Date Amaral, Marielos, CLUTCH OPERATOR [address] [phone] PCP - General Nurse Practitioner 08/18/23 documented as of this encounter
--- OUTSIDE RECORDS SUMMARY | 2025-05-14 20:32 | XMS_ITS | Encounter Summary ---
Author Organization [employer] ([place], [place], [place], [place]) Address [address] [place] [address] Care Team Providers Care Mobile Web Application Developer Name Role Phone Marielos Amaral KAYE Primary Care Provider Encounter Details Date Type Department Care Team (Late st Contact Info) Description 10/14/2019 Transcribed Document [facility] [place] Family Medicine [address] [place] [address] ProviderHaroldo MD [address] [place] [address] Social History Tobacco Use Types Packs/Day Years Used Date Smoking Tobacco: Never Assessed Sex and Gender Information Value Date Recorded Sex Assigned at Not on file Legal Sex Male 3:45 PM CDT Gender Identity Not on file Sexual Orientation Not on file documented as of this encounter Miscellaneous Notes * Cerner Conversion Note - Haroldo ProviderMD - 10/14/2019 1:50 PM AUTOMATIC GLUING MACHINE OPERATOR [place] Suicide Severity Rating Scale (C-SSRS) Entered On: 10/14/2019 15:40 EST Performed On: 10/14/2019 14:00 EST by Ivone Damon RN [place] Suicide Severity Rating Scale (C-SSRS) CSSRS Past Month Wish to be : No CSSRS Past Month Suicidal Thoughts : No CSSRS Lifetime Suicide Behavior : No Suicide Severity Rating Score : 0 Suicide Severity Rating : No Additional Care Required at this time Ivone Damon RN - 10/14/2019 15:38 EST Electronically signed by Brittany [facility] Conversion Infection Control Nurse Cerner at 01/24/2023 10:18 AM CDT documented in this encounter Plan of Treatment Not on file documented as of this encounter Visit Diagnoses Not on filedocumented in this encounter Care Teams Mobile Web Application Developer Relationship Specialty Start Date End Date Marielos Amaral, SOAP WORKER [address] [address] PCP - General Nurse Practitioner 08/18/23 documented as of this encounter
--- OUTSIDE RECORDS SUMMARY | 2025-05-14 20:32 | XMS_ITS | Encounter Summary ---
Author Organization [employer] ([place], [place], [place], [place]) Address [address] [place] [address] Care Team Providers Care Plant Physiologist Name Role Phone Marielos Amaral KAYE Primary Care Provider Encounter Details Date Type Department Care Team (Late st Contact Info) Description 10/14/2019 Transcribed Document [facility] [place] Family Medicine [address] [place] [address] ProviderHaroldo MD [address] [place] [address] Social History Tobacco Use Types Packs/Day Years Used Date Smoking Tobacco: Never Assessed Sex and Gender Information Value Date Recorded Sex Assigned at Not on file Legal Sex Male 3:45 PM CDT Gender Identity Not on file Sexual Orientation Not on file documented as of this encounter Miscellaneous Notes * Cerner Conversion Note - Haroldo ProviderMD - 10/14/2019 4:59 PM ASSOCIATE PROFESSOR OF BIOSTATISTICS Evaluation, Occupational Therapy Entered On: 10/15/2019 15:56 EST Performed On: 10/15/2019 11:07 EST by ARABELLA FOSTER OTR/Melvin General Information, OT Visit Type, OT : Initial evaluation Patient Orders : Order Date Order Ordering 10/14/2019 16:59 OT Evaluation and Treatment Ordered By: TYSHAWN BRANDT MD-SIN Active Diagnoses : 10/14/2019 12:00 Cerebral infarction, unspecified 10/14/2019 12:00 Chest pain 10/14/2019 12:00 Chest pain, unspecified 10/14/2019 12:00 Hypertensive emergency 10/14/2019 12:00 Hypertensive urgency 10/14/2019 12:00 Other symptoms and signs involving the musculoskeletal system Admission Date : 10/14/2019 17:19 Co-treated by, OT : Physical Therapist Personal Devices : Personal Devices No Devices Recorded Assistive Devices : Assistive Devices No Devices Recorded General Information Comment, OT : Dx: Stroke, Chest Pain Hx of CAD, DM2, Angina, GERD, HLD, HTN, Migraines, Enlarged Prostate, Heart Failure ARABELLA FOSTER OTR/Melvin - 10/15/2019 15:51 EST General Status Patient Received Status : Supine in bed Treatment Start Time : 10/15/2019 10:53 EST Patient Left Status : Up in chair, RN/PCT informed, Family/Visitors at bedside, All needs met and within reach RN/PCT Informed Comment : Per Dr. Sonido Roper approved pt to particpate in OT/PT post tPa Treatment End Time : 10/15/2019 11:07 EST Treatment Time : 14 Minute(s) ARABELLA FOSTER OTR/L - 10/15/2019 15:51 EST History and Environment, OT Living Situation, Therapy : Home Patient Lives With : Spouse Persons Assisting Patient at Home : Spouse Persons Providing Information : Patient, Spouse Home Equipment, Therapy : None Home Setup : Basement Bedroom Location : Main level Bathroom #1 Location : Main level Stairs : Yes Stair Location(s) : Inside, Outside Stairs Inside Comment : Doesn't use basement Outside Stairs, Number of Steps : 4 Railing Outside : Yes Outside Railing Position : Bilateral ARABELLA FOSTER OTR/Melvin - 10/15/2019 15:51 EST Prior LOF Bathing, OT : Independent Prior LOF Bed Mobility : Independent Prior LOF Upper Body Dressing, OT : Independent Prior LOF Lower Body Dressing, OT : Independent Prior LOF Toileting : Independent Prior LOF Transfer : Independent Prior LOF Grooming, OT : Independent Prior LOF for IADLs, OT : Independent ARABELLA FOSTER OTR/Melvin - 10/15/2019 15:51 EST Upper Extremity Right UE Active ROM : WFL Left UE Active ROM : WFL ARABELLA FOSTER OTR/Melvin - 10/15/2019 15:51 EST Right Upper Extremity MMT Shoulder Flexion 0-180 : 4/good Shoulder Extension 0-60 : 4/good Shoulder Abduction 0-180 : 4/good Shoulder Adduction 0-180 : 4/good Shoulder Internal Rotation 0-90 : 4/good Shoulder External Rotation 0-90 : 4/good Elbow Flexion 0-150 : 4/good Elbow Extension 0-0 : 4/good Wrist Flexion 0-80 : 4/good Wrist Extension 0-70 : 4/good Forearm Pronation 0-70 : 4/good Forearm Supination 0-85 : 4/good Ulnar Deviation 0-45 : 4/good RadialDeviation 0-20 : 4/good ARABELLA FOSTER OTR/Melvin - 10/15/2019 15:51 EST Left Upper Extremity MMT Shoulder Flexion 0-180 : 4/good Shoulder Extension 0-60 : 4/good Shoulder Abduction 0-180 : 4/good Shoulder Adduction 0-180 : 4/good Shoulder Internal Rotation 0-90 : 4/good Shoulder External Rotation 0-90 : 4/good Elbow Flexion 0-150 : 4/good Elbow Extension 0-0 : 4/good Wrist Flexion 0-80 : 4/good Wrist Extension 0-70 : 4/good Forearm Pronation 0-70 : 4/good Forearm Supination 0-85 : 4/good Ulnar Deviation 0-45 : 4/good RadialDeviation 0-20 : 4/good ARABELLA FOSTER OTR/Melvin - 10/15/2019 15:51 EST Hand Barrel Centerer Test : Bilateral life sciences manager strength WFL ARABELLA FOSTER OTR/Melvin 10/15/2019 15:51 EST Self Care/Home Management, OT Self Feeding Assist Level, OT : Independent, modified Grooming Assist Level, OT : Independent, modified Bathing Assist Level, OT : Independent, modified Upper Body Dressing Assist Level, OT : Independent, modified Lower Body Dressing Assist Level, OT : Independent, modified Toileting Assist Level : Independent, modified Toilet Transfer Assist Level : Independent, modified ARABELLA FOSTER OTR/Melvin - 10/15/2019 15:51 EST Functional Mobility Mobility Grid Supine to Sit : Rehab Modified independence Sit to Stand : Rehab Modified independence Bed to Chair : Rehab Modified independence Stand to Sit : Rehab Modified independence ARABELLA FOSTER OTR/Melvin - 10/15/2019 15:51 EST Cognition Assessment, OT Orientation : Oriented x 4 ARABELLA FOSTER OTR/Melvin 10/15/2019 15:51 EST Indication Assessment, OT Occupational Therapy Indicated : No Occupational Therapy Not Indicated : At prior level of function, No skilled services indicated ARABELLA FOSTER OTR/Melvin - 10/15/2019 15:51 EST Plan of Care, OT OT Tx Plan/Goals Established w Patient : No Reason OT Treatment/Plan Not Established : Pt is at prior level of fx and is mod I with all ADLs. eval only ARABELLA FOSTER OTR/Melvin - 10/15/2019 15:51 EST Treatment Note Subjective Comment : Pt was agreeable Patient's Response to Treatment : Pt tolerated eval well Additional Objective Information : Pt was found lying supine in bed. Pt was mod I for supine to sit, donning socks, sit to stand, ambulation, and stand to sit. Pt was left sitting up in chair with all needs met, family members bedside, and RN notified, and call light within in reach Assessment : Pt is at prior level of fx and is mod I with all ADLs. eval only Plan for Treatment : eval only ARABELLA FOSTER OTR/Melvin - 10/15/2019 15:51 EST Anticipated Discharge Needs, OT/PT Anticipated Discharge to : Home, with family care ARABELLA FOSTER OTR/Melvin - 10/15/2019 15:51 EST [place] OT Charges OT Eval Moderate Complexity : 1 ARABELLA FOSTER OTR/Melvin - 10/15/2019 15:51 EST Electronically signed by [facility] Conversion Power Reactor Supervisor Cerner at 01/24/2023 10:31 AM CDT documented in this encounter Plan of Treatment Not on file documented as of this encounter Visit Diagnoses Not on filedocumented in this encounter Care Teams Plant Physiologist Relationship Specialty Start Date End Date Marielos Amaral, COMIC ARTIST [address] [address] PCP - General Nurse Practitioner 08/18/23 documented as of this encounter
--- OUTSIDE RECORDS SUMMARY | 2025-05-14 20:32 | XMS_ITS | Encounter Summary ---
Author Organization [employer] ([place], [place], [place], [place]) Address [address] [place] [address] Care Team Providers Care Financial Coach Name Role Phone Marielos Amaral KAYE Primary Care Provider Encounter Details Date Type Department Care Team (Late st Contact Info) Description 04/23/2022 Transcribed Document [facility] Radiology [address] [place], [place] [id number] Saba Neal MD [address] [place] [address] [address] [place] [address] Social History Tobacco Use Types Packs/Day Years [...] Do you speak a language other than [place] at [facility]? Yes 10/30/2024 Do you want help [...] Miscellaneous Notes * Cerner Conversion Note - Saba Neal MD - 04/23/2022 12:29 PM EDT Patient: DEION ANTOINE Age: 71 years Sex: Male : 1950 Associated Diagnoses: None Author: SABA NEAL MD-INT Subjective Patient was seen and examined today 04/23/2022. Complaining of Urinary frequency. Discussed with his daughter and his at the bedside. Review of Systems Constitutional: Weakness, Fatigue, No fever, No chills. Eye: Negative. Ear/Nose/Mouth/Throat: Negative. Respiratory: Negative. Cardiovascular: No chest pain. Gastrointestinal: No nausea, No vomiting, No diarrhea. Genitourinary: No dysuria. Hematology/Lymphatics: Negative. Endocrine: Negative. Immunologic: No recurrent fevers. Musculoskeletal: No back pain. Integumentary: No rash. Neurologic: Negative. Psychiatric: Negative. Health Status Allergies: Allergic Reactions (Selected) Severity [...] Other (See Comment) Eliquis: 2.5 mg, Oral, [id number] Rocephin: 1 Gram, 100 mL/Hr, IV Piggyback, [id number] Tylenol: 650 mg, Oral, Q4H, PRN: Pain [...] mg tab 2.5 mg 1 Tab, Oral, [id number] atorvastatin 40 mg tab 40 mg 1 Tab, Oral, At Bedtime cefTRIAXone 1 Gram, IV Piggyback, [id number] insulin glargine 1 unit/0.01 mL inj 5 [...] list: Medical Atrial fibrillation / SNOMED CT [id number] / Confirmed CAD - Coronary artery disease / SNOMED CT 4045963569 / Confirmed Cardiomyopathy / SNOMED CT 813091897 / Confirmed Acute cerebrovascular accident (CVA) / SNOMED CT 145748600 / Confirmed History of obstructive sleep apnea / IMO [id number] / Confirmed HLD - Hyperlipidemia / SNOMED CT 090251697 / Confirmed HTN - Hypertension / SNOMED CT 8954718293 / Confirmed Type 2 diabetes mellitus / SNOMED CT 362676892 / Confirmed, Active Problems (20) Acute cerebrovascular accident (CVA) Angina Atrial fibrillation CAD - Coronary artery disease Cardiomyopathy Coronary artery disease Diabetes mellitus type II Enlarged prostate GERD - Gastro-esophageal reflux disease Heart failure Heart murmur History of obstructive sleep apnea HLD - Hyperlipidemia HTN - Hypertension Hyperlipidemia Hypertension Impaired vision Migraine Stented coronary artery Type 2 diabetes mellitus Objective VS/Measurements Vitals Signs (last 24 hrs) Last Charted Minimum Maximum Temp 98.1 (APR 23 08:30) 98 (APR 22 22:43) 98 (APR 22 22:43) Apical HR 68 (APR 23 08:36) 68 (APR 23 08:36) 68 (APR 23 08:36) Mon HR 75 (APR 23 10:00) 60 (APR 22 20:00) 75 (APR 23 10:00) Resp Rate 19 (APR 23 08:30) 15 (APR 22 20:00) H 27 (APR 22 23:00) SBP L 82 (APR 23 10:00) L 76 (APR 22 19:30) 105 (APR 23 08:30) DBP L 45 (APR 23 10:00) L 44 (APR 22 22:43) 60 (APR 22 21:27) MAP 56 (APR 23 10:00) 56 (APR 23 10:00) 75 (APR 22 17:30) SpO2 97 (APR 23 08:30) L 90 (APR 22 18:47) 99 (APR 22 14:00) General: Alert and oriented, No acute distress. Eye: Pupils are equal, round and reactive to light, Extraocular movements are intact, Normal conjunctiva. HENT: Normocephalic. Neck: Supple, Non-tender. Respiratory: Lungs are clear to auscultation, Breath sounds are equal. Cardiovascular: Normal rate, Regular rhythm, No murmur, Good pulses equal in all extremities. Gastrointestinal: Soft, Non-distended, Normal bowel sounds. Musculoskeletal: Normal range of motion, No tenderness. Integumentary: Warm, No rash. Neurologic: Alert, Oriented, No focal deficits. Psychiatric: Cooperative, Appropriate mood & affect. Review / Management APR 23 07:07 L 129 L 98 C 91 / H 244 4.4 21 H 7.40 \ APR 23 07:07 \ L 9.6 / 5.2 230 / L 28.0 \ Radiology Results (Last 48 hours) [id number] -- 04/22/2022 12:30 CR Chest 1 Vw Portable (04/22/2022 09:48) Result: PORTABLE CHEST; HISTORY: Syncope.COMPARISON: October 2020.FINDINGS: The heart is normal in size. The mediastinum is unremarkable. The lungs are well aerated. There is no evidence of acute infiltrateor effusion. There is no pneumothorax. The patient is status postmedian sternotomy for prior CABG.IMPRESSION: No acute process.Images reviewed, interpreted, and dictated by Dr. Artem Mcdermott.Transcribed by Caroline Gunderson PA-C.I have personally viewed, interpreted and dictated the examination. Ihave read and agree with the above final transcribed report. CT Head WO (04/22/2022 10:49) Result: HEAD CT 04/22/2022 10:16 AM HISTORY: Acute headacheCOMPARISON: October 2019.TECHNIQUE: Multiple axial CT images were performed from the foramenmagnum to the vertex. This study was performed with techniques to keepradiation doses as low as reasonably achievable, (ALARA). Individualizeddose reduction techniques using automated exposure control or adjustmentof mA and/or kV according to the patient size were employed. FINDINGS: The ventricles are enlarged. There is mild atrophy . Thereis extensive periventricular white matter change likely related to smallvessel disease . There is no evidence of hemorrhage . No masses areidentified . No extra-axial fluid is seen . The sinuses are normal .Atherosclerosis is noted.IMPRESSION: Chronic appearing changes without acute hemorrhage.CT CERVICAL SPINE 04/22/2022 10:16 AM HISTORY: Status post syncope with acute neck pain.COMPARISON: None.PROCEDURE: Axial images were obtained from the skull base to thethoracic inlet by computed tomography. 3 D reconstruction images wereperformed. This study was performed with techniques to keep radiationdoses as low as reasonably achievable, (ALARA). Individualized dosereduction techniques using automated exposure control or adjustment ofmA and/or kV according to the patient size were employed.FINDINGS: There is no acute fracture . There is no subluxation . Thereis loss of the disc space at C5-C6 with a mild posterior osteophyte.There is no central bony canal stenosis. The soft tissues areunremarkable . Limited images of the lung apices are unremarkable . There is atherosclerosis.IMPRESSION: No acute fracture . Consider an MRI if clinicallywarranted.Images reviewed, interpreted, and dictated by Dr. Artem Mcdermott.Transcribed by Lisa Holliday (R).I have personally viewed, interpreted and dictated the examination. Ihave read and agree with the above final transcribed report. CT Spine Cervical WO (04/22/2022 10:49) Result: HEAD CT 04/22/2022 10:16 AM HISTORY: Acute headacheCOMPARISON: October 2019.TECHNIQUE: Multiple axial CT images were performed from the foramenmagnum to the vertex. This study was performed with techniques to keepradiation doses as low as reasonably achievable, (ALARA). Individualizeddose reduction techniques using automated exposure control or adjustmentof mA and/or kV according to the patient size were employed. FINDINGS: The ventricles are enlarged. There is mild atrophy . Thereis extensive periventricular white matter change likely related to smallvessel disease . There is no evidence of hemorrhage . No masses areidentified . No extra-axial fluid is seen . The sinuses are normal .Atherosclerosis is noted.IMPRESSION: Chronic appearing changes without acute hemorrhage.CT CERVICAL SPINE 04/22/2022 10:16 AM HISTORY: Status post syncope with acute neck pain.COMPARISON: None.PROCEDURE: Axial images were obtained from the skull base to thethoracic inlet by computed tomography. 3 D reconstruction images wereperformed. This study was performed with techniques to keep radiationdoses as low as reasonably achievable, (ALARA). Individualized dosereduction techniques using automated exposure control or adjustment ofmA and/or kV according to the patient size were employed.FINDINGS: There is no acute fracture . There is no subluxation . Thereis loss of the disc space at C5-C6 with a mild posterior osteophyte.There is no central bony canal stenosis. The soft tissues areunremarkable . Limited images of the lung apices are unremarkable . There is atherosclerosis.IMPRESSION: No acute fracture . Consider an MRI if clinicallywarranted.Images reviewed, interpreted, and dictated by Dr. Artem Mcdermott.Transcribed by Lisa Holliday (R).I have personally viewed, interpreted and dictated the examination. Gabino read and agree with the above final transcribed report. CT Abdomen Pelvis WO (04/22/2022 13:47) Result: CT SCAN OF THE ABDOMEN AND PELVIS WITHOUT CONTRAST 04/22/2022 12:06PM HISTORY: Generalized abdominal painCOMPARISON: None.PROCEDURE: Axial images were obtained from the lung bases to the pubicsymphysis by computed tomography. This study was performed withtechniques to keep radiation doses as low as reasonably achievable,(ALARA). Individualized dose reduction techniques using automatedexposure control or adjustment of mA and/or kV according to the patientsize were employed.FINDINGS: ABDOMEN: The lung bases are clear. The heart size is normal. There is asurgical device at the GE junction. The limited noncontrast images ofthe liver are normal. Patient is status post cholecystectomy. The spleenis normal. No adrenal masses are seen. The aorta is normal in caliber.There is no significant free fluid or adenopathy. There is bilateralperinephric stranding. There is no nephrolithiasis. There is nohydronephrosis.PELVIS: The appendix is not identified. The urinary bladder isdistended. There is a Hutch diverticulum on the right. There is a leftinguinal hernia containing omental fat. There is no significant fluid oradenopathy.IMPRESSION: No hydronephrosis or nephrolithiasis.Images reviewed, interpreted, and dictated by Dr. Doe Herbert.Transcribed by Faustina Meraz PA-C.I have personally viewed, interpreted and dictated the examination. Ihmax read and agree with the above final transcribed report. Results review: Labs (Last four charted values) [...] (APR 22) ALB 3.4 (APR 22) . Medication Changes from Previous Midnight to Current New Medications: acetaminophen (Tylenol) 650 mg, Oral, Tab, Q4H, PRN for Pain (Mild 1-3), Routine, Start 04/22/22 14:08:00 EDT, 04/22/22 14:08:00 EDT ASHLEY GALARZA PA amiodarone 200 mg, Oral, Tab, Daily, Routine, Start 04/23/22 9:00:00 EDT, 04/23/22 9:00:00 EDT ASHLEY GALRAZA PA apixaban (Eliquis) 2.5 mg, Oral, Tab, [id number], Routine, Start 04/22/22 21:00:00 EDT, 04/22/22 21:00:00 EDT ASHLEY GALARZA PA atorvastatin 40 mg, Oral, Tab, At Bedtime, Routine, Start 04/22/22 21:00:00 EDT, 04/22/22 13:48:00 EDT ASHLEY GALARZA PA cefTRIAXone (Rocephin) 1 Gram, IV Piggyback, Inj, [id number], infuse over 30 Minute(s), Routine, Start 04/22/22 19:00:00 EDT, 100 mL/Hr, Indication: Urinary Tract Infection ASHLEY GALARZA PA glucagon 1 mg, IntraMuscular, Inj, Q15Min, PRN for Other (See Comment), Routine, Start 04/22/22 13:51:00 EDT, 04/22/22 13:51:00 EDT ASHLEY GALARZA PA glucose (Dextrose 50% injection) 25 Gram, IV Push, Inj, Q15Min, PRN for Other (See Comment), Routine, Start 04/22/22 13:51:00 EDT, 04/22/22 13:51:00 EDT ASHLEY GALARZA PA glucose (Dextrose 50% injection) 25 Gram, IV Push, Inj, Q15Min, PRN for Other (See Comment), Routine, Start 04/22/22 13:51:00 EDT, 04/22/22 13:51:00 EDT ASHLEY GALARZA PA glucose (Dextrose 50% injection) 25 Gram, IV Push, Inj, Q15Min, PRN for Other (See Comment), Routine, Start 04/22/22 13:51:00 EDT, 04/22/22 13:51:00 EDT ASHLEY GALARZA PA glucose (Dextrose 50% injection) 12.5 Gram, IV Push, Inj, Q15Min, PRN for Other (See Comment), Routine, Start 04/22/22 13:51:00 EDT, 04/22/22 13:51:00 EDT ASHLEY GALARZA PA glucose (glucose 4 g oral tablet, chewable) 16 Gram, 4 Tab, Chew, Tab, Q15Min, PRN for Other (See Comment), Routine, Start 04/22/22 13:51:00 EDT ASLHEY GALARZA PA glucose (glucose 40% oral gel) 15 Gram 37.5 mL, Oral, Gel, Q15Min, PRN for Other (See Comment), Routine, Start 04/22/22 13:51:00 EDT, 04/22/22 13:51:00 EDT ASHLEY GALARZA PA insulin glargine 5 Units, SubCutaneous, Inj, Daily, Routine, Start 04/22/22 14:09:00 EDT, 04/22/22 14:09:00 EDT ASHLEY GALARZA PA insulin lispro (insulin lispro sliding scale) Scale A:, SubCutaneous, Inj, AC and at Bedtime, Routine, Start 04/22/22 16:00:00 EDT, At HS give only if FSBG > 180 mg/dL ASHLEY GALARZA PA levothyroxine 100 mcg, Oral, Tab, Daily, Routine, Start 04/23/22 6:30:00 EDT, 04/22/22 13:47:00 EDT ASHLEY GALARZA PA ondansetron (Zofran) 4 mg, IV Push, Inj, Q4H, PRN for Nausea, Routine, Start 04/22/22 14:08:00 EDT, 04/22/22 14:08:00 EDT ASHLEY GALARZA PA pantoprazole 40 mg, Oral, EC Tab, Daily, Routine, Start 04/22/22 13:46:00 EDT, 04/22/22 13:46:00 EDT ASHLEY GALARZA PA sodium bicarbonate 150 mEq + Dextrose 5% in Water intravenous solution 1,000 mL (sodium bicarbonate injection 150 mEq + Dextrose 5% in Water intravenous solution 1,000 mL) 1,000 mL, Bag Volume (mL) = 1,150, IntraVENous, Rate = 75 mL/Hr, start date 04/22/22 13:35:00 EDT, Routine, 2.03, m2 PARAM WEBBER MD Discontinued Medications: No Qualifying Discontinued Meds Impression and Plan Acute on chronic kidney failure with metabolic acidosis. -Renal vs prerenal -Continue IV fluid. - Continue IV sodium bicarbonate drip. -renal ultrasound pending -Hold all nephrotoxic meds including Bumex, Aldactone and lisinopril -Follow electrolytes and renal function closely until to baseline. -Nephroloy consult Urinary tract infection. Urinalysis noted. Urine culture pending. Continue broad-spectrum IV antibiotics. Diabetes mellitus. Uncontrolled. Hemoglobin A1c 12.3. Initiate basal bolus insulin. Hyponatremia. Likely pseudohyponatremia. Monitor closely. History of multiple CVAs with residual right-sided weakness. CT scan of brain without IV contrast noted. Physical therapy evaluation. Dilated cardiomyopathy. Last ECHO note History of coronary artery disease status post CABG. Hold Bumex, Aldactone and DEVI inhibitor due to acute renal failure. Continue telemetry monitoring. Atrial fibrillation. Currently normal sinus rhythm. Telemetry monitoring. Hold beta-cholo due to hypotension. Continue Eliquis. Hypothyroidism. Resume Synthroid. CODE STATUS. DNR/DNI. GI and DVT prophylaxis. Disposition. Acute on chronic renal failure. With metabolic acidosis continue requiring sodium bicarbonate drip. Monitor kidney function closely. Likely discharge home in 2 to 3 days documented in this encounter Plan of Treatment Not on file documented as of this encounter Visit Diagnoses Not on filedocumented in this encounter Care Teams Financial Coach Relationship Specialty Start Date End Date Marielos Amaral APRN [address] [address] PCP - General Nurse Practitioner 08/18/23 documented as of this encounter
--- OUTSIDE RECORDS SUMMARY | 2025-05-14 20:32 | XMS_ITS | Encounter Summary ---
Author Organization [employer] ([place], [place], [place], [place]) Address [address] [place] [address] Care Team Providers Care Supply Room Clerk Name Role Phone Marielos Amaral KAYE Primary Care Provider Encounter Details Date Type Department Care Team (Late st Contact Info) Description 10/14/2019 Transcribed Document [facility] [place] Family Medicine [address] [place] [address] ProviderHaroldo MD [address] [place] [address] Social History Tobacco Use Types Packs/Day Years Used Date Smoking Tobacco: Never Assessed Sex and Gender Information Value Date Recorded Sex Assigned at Not on file Legal Sex Male 3:45 PM CDT Gender Identity Not on file Sexual Orientation Not on file documented as of this encounter Miscellaneous Notes * Cerner Conversion Note - Haroldo ProviderMD - 10/14/2019 6:06 PM [employer] Rapid Response Team Documentation Entered On: 10/14/2019 18:15 EST Performed On: 10/14/2019 18:06 EST by MAYLIN TOMLIN RN Rapid Response Event Time Rapid Response Team Called : 10/14/2019 16:03 EST Rapid Response Team Arrival Time : 10/14/2019 16:05 EST Rapid Response Team Event End Time : 10/14/2019 17:17 EST Rapid Response Event Intiated By : Hospital Staff Rapid Response Team Initiation Reason : Code stroke Rapid Response Event Location Type : Emergency department Rapid Response Admission Diagnosis : Cerebral infarction, unspecified Chest pain Chest pain, unspecified Hypertensive emergency Hypertensive urgency Other symptoms and signs involving the musculoskeletal system Rapid Response Medical Background : Angina (Patient Stated) Coronary artery disease (Patient Stated) Diabetes mellitus type II (Patient Stated) Enlarged prostate (Patient Stated) GERD - Gastro-esophageal reflux disease (Patient Stated) Heart failure (Patient Stated) Heart murmur (Patient Stated) History of obstructive sleep apnea (Medical) Hyperlipidemia (Patient Stated) Hypertension (Patient Stated) Impaired vision (Patient Stated) Migraine (Patient Stated) Stented coronary artery (Patient Stated) Rapid Response Allergies : Substance Category Reactions Severity amoxicillin Drug Mucinex Drug Rapid Response Recent Vital Signs : 10/14/2019 17:48 Systolic Blood Pressure 136 10/14/2019 17:48 Diastolic Blood Pressure 72 10/14/2019 17:48 Heart Rate Monitored 84 10/14/2019 16:56 Heart Rate, Apical 85 10/14/2019 17:48 Respiratory Rate 24 10/14/2019 13:50 Temperature, Fahrenheit 97.9 10/14/2019 17:48 Oxygen Saturation 95 Rapid Response Recent Lab Results : 10/14/2019 14:46 Sodium Level 138 (136-146) 10/14/2019 14:46 Potassium Level 4.1 (3.5-5.1) 10/14/2019 14:46 Calcium Level 8.6 (8.4-10.1) 10/14/2019 14:46 Chloride Level 106 (102-112) 10/14/2019 14:46 Carbon Dioxide Level 25 (21-32) 10/14/2019 14:46 Blood Urea Nitrogen 20 (7-22) 10/14/2019 14:46 Creatinine Level HI 1.70 (0.70-1.30) 10/14/2019 16:06 PT 10.3 (9.6-12.0) 10/14/2019 16:06 INR 1.0 (0.9-1.1) 10/14/2019 16:06 PTT LOW 23.0 (24.0-34.0) 10/14/2019 14:46 Hgb LOW 12.6 (13.7-17.5) 10/14/2019 14:46 Hct LOW 37.5 (40.1-51.0) 10/14/2019 14:46 RBC LOW 4.07 (4.20-5.70) 10/14/2019 14:46 WBC 7.8 (3.6-9.5) 10/14/2019 14:46 Platelet Count 244 (163-369) 10/14/2019 14:46 Troponin I Ultra <0.015 (0.015-0.045) Weight/BMI : Clinical Weight/BMI CLINICALWEIGHT: 86.36 kg (10/14/19 13:50:00) Body Mass Index: 28.1 kg/m2 High (10/14/19 13:50:00) Code Status Pre Event : Full Code Code Status Post Event : Full Code Rapid Response Team Recommendation/Response : Pt resented to the ER with chest pain and devoleped right lower extermity weakness and changes in sensation while in ER. NIHSS was a 2. Last known normal was 15:55. Dr Head wanted a CTA of the chest ordered also to rule out possible disection prior to administration of TPA. After results from CT scan recieved and administration of hydralyzine to lower BP TPA bolus was administered at 16:51 and infusion was started at 16:54. Patient Condition at End of Event : S/S Acute Distress Patient Disposition Post Event : Transfer to critical care Rapid Response Supply Room Clerk #1 : MAYLIN TOMLIN RN EGLESTON, JEREMY W, RN - 10/14/2019 18:06 EST Rapid Response Systems Assessment Oxygen Therapy Mode : Room air Angioedema Present : No [place] Best Motor Response : Obey commands Uvaldo Best Verbal Response : Oriented [place] Eye Opening Response : Spontaneous [place]do Coma Score : 15 Level of Consciousness : Alert, Awake Orientation : Oriented x 4 Affect/Behavior : Appropriate, Calm, Cooperative Last Known Well Actual Date/Time : 10/14/2019 15:55 EST Last Known Well Details *Q : Last known well actual date/time MAYLIN TOMLIN RN - 10/14/2019 18:06 EST NIH Stroke Scale *Q NIH Assessment Interval : Baseline Time of Assessment : 10/14/2019 16:07 EST NIH Clinician Administering Scale : MAYLIN TOMLIN RN NIH Level of Consciousness (1A) : Alert NIH LOC Questions (1B) : Answers both questions correctly NIH LOC Commands (1C) : Performs both tasks correctly NIH Best Gaze (2) : Normal NIH Visual (3) : No visual loss NIH Facial Palsy (4) : Normal symmetrical movements NIH Motor Arm, Left (5A) : No drift NIH Motor Arm, Right (5B) : No drift NIH Motor Leg, Left (6A) : No drift NIH Motor Leg, Right (6B) : Drift NIH Limb Ataxia (7) : Absent NIH Sensory (8) : Cibi-xw-rhkmlmth sensory loss NIH Best Language (9) : No aphasia NIH Dysarthria (10) : Normal Extinction and Inattention (11) : No abnormality NIH Scale Score : 2 MAYLIN TOMLIN RN - 10/14/2019 18:06 EST Modified Martin Bedside Swallowing 2 Exhibits Slurred or Garbled Speech : No 3 Trouble Speaking/Understanding Words : No 1 Alert (Follows Commands) : Yes 4 Exhibits Drooling : No 5 Wet-sounding Voice : No 6 Coughs After 1 tsp Water : No 7 Voice Sounds Gurgly After 1 tsp Water : No 8 Dribbles From Mouth After 1 tsp Water : No 9 Coughs After 60 mL of Water : No 10 Voice Gurgly After 60 mL Water : No 11 Dribbles from Mouth After 60 mL Water : No Modified Martin Bedside Swallow Comment : passed at 17:04 MAYLIN TOMLIN RN - 10/14/2019 18:06 EST documented in this encounter Plan of Treatment Not on file documented as of this encounter Visit Diagnoses Not on filedocumented in this encounter Care Teams Supply Room Clerk Relationship Specialty Start Date End Date Marielos Aamral APRN [address] [address] PCP - General Nurse Practitioner 08/18/23 documented as of this encounter
--- OUTSIDE RECORDS SUMMARY | 2025-05-14 20:32 | XMS_ITS | Encounter Summary ---
Author Organization [employer] ([place], [place], [place], [place]) Address [address] [place] [address] Care Team Providers Care Meter Attendant Name Role Phone Marileos Amaral KAYE Primary Care Provider Encounter Details Date Type Department Care Team (Late st Contact Info) Description 10/14/2019 Transcribed Document [facility] [place] Family Medicine [address] [place] [address] ProviderHaroldo MD [address] [place] [address] Social History Tobacco Use Types Packs/Day Years Used Date Smoking Tobacco: Never Assessed Sex and Gender Information Value Date Recorded Sex Assigned at Not on file Legal Sex Male 3:45 PM CDT Gender Identity Not on file Sexual Orientation Not on file documented as of this encounter Miscellaneous Notes * Cerner Conversion Note - Haroldo ProviderMD - 10/14/2019 4:59 PM TRUST CLERK Spiritual Care Assessment Entered On: 10/15/2019 10:42 EST Performed On: 10/15/2019 10:35 EST by JORDYN HART General Information Referred by : Physician Referral Reason Comment : Code Stroke Ministry Provided to : Patient, Family/Significant other Restoration Preference : No evangelical JORDYN HART - 10/15/2019 10:37 EST Spiritual Assessment Spiritual Assessment Comment/Summary Points : Code Stroke assessment: Swati is not a resource; Mr. Carrasco finds amarilys in family; Discussed former hobby of hunting and fishing; Family is providing emotional support; is at bedside; Mr. Carrasco has 3 children and 4 grandchildren; Expressed gratitude for visit; Expressed no needs at this time; POC: Will follow PRN Spirital Assessment Comment/Summary Report : SPIRITUAL ASSESSMENT COMMENT/SUMMARY Spiritual Assessment Comment/Summary 10/14/19 20:20:00 follow up visit with Enriqueta, providing and enjoying conversation about her previous family members who were in [facility]. She has been here many times with several family members being patients down through many years. Signed By: LUCY SANDERS Chaplain Spiritual Assessment Comment/Summary 10/14/19 20:18:00 responded to code stroke page @ 16:00. supportive presence and conversation with patient's , Enriqueta. 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 Signed By: LUCY SANDERS Chaplain [facility] [place] - 10/15/2019 10:37 EST Electronically signed by Brittany [facility] Conversion Steel Pourer Helper Cerner at 01/24/2023 10:37 AM CDT documented in this encounter Plan of Treatment Not on file documented as of this encounter Visit Diagnoses Not on filedocumented in this encounter Care Teams Meter Attendant Relationship Specialty Start Date End Date Marielos Amaral APRN [address] [place] [address] PCP - General Nurse Practitioner 08/18/23 documented as of this encounter
--- OUTSIDE RECORDS SUMMARY | 2025-05-14 20:32 | XMS_ITS | Encounter Summary ---
Author Organization [employer] ([place], [place], [place], [place]) Address [address] [place] [address] Care Team Providers Care Precinct Police Captain Name Role Phone AmaralMarielos roque KAYE Primary Care Provider Encounter Details Date Type Department Care Team (Late st Contact Info) Description 10/14/2019 Transcribed Document [facility] [place] Family Medicine [address] [place] [id number] ProviderHaroldo MD [address] [place] [address] Social History Tobacco Use Types Packs/Day Years Used Date Smoking Tobacco: Never Assessed Sex and Gender Information Value Date Recorded Sex Assigned at Not on file Legal Sex Male 3:45 PM CDT Gender Identity Not on file Sexual Orientation Not on file documented as of this encounter Miscellaneous Notes * Cerner Conversion Note - Haroldo ProviderMD - 10/14/2019 8:22 PM LIVING SUPERVISOR DATE OF ADMISSION: 10/14/2019 CHIEF COMPLAINT: Chest pain. HISTORY OF PRESENT ILLNESS: A 68-year-old male with history of CAD, CABG, cardiac stents, and a history of atrial fibrillation and CVA in April 2019, presenting with left-sided chest pain in parasternal [...] weakness on the right side from previous stroke. According to his , it was said that he was pulling every now and then. He had been evaluated in the ER by Dr. Redman and also by the neurologist on-call, and the patient was a candidate apparently for tPA which he received and now he is post tPA, in Neurologic ICU-1. The patient was initially endorsed to Dr. Tolliver, who endorsed me about the case. Now, the patient is denying any chest pain. He has right tingling on his leg from just above the knee involving the whole leg, but he denies any back pain or urinary symptoms. He denies any symptoms on the left side. He denies any trauma to the back. He denies any improvement since he had the tPA. He had multiple imaging studies in the ER including a CT angiogram of the chest that showed no evidence of pulmonary embolism and there is [place] prosthesis in the position around the gastric cardia. He had CTA of the head and neck that showed no significant abnormalities except some ectasia of the left vertebral artery and basilar artery probably of no significance per report. Atherosclerotic calcification also noted and there are no major occlusive abnormalities in the major vessels. There was minimal stenosis involving the proximal ICA without significant abnormality otherwise. The patient also had CT perfusion study of the brain without perfusion abnormalities noted on the CT scan. PAST MEDICAL HISTORY: Includes DM2, hypertension, dyslipidemia, CAD, history of cardiac stent, CABG 3 years ago, possible chronic kidney disease, tobacco dependence, history of GERD and Valenzuela's esophagus, congestive heart failure, obstructive sleep apnea, dyslipidemia, visual impairment, migraine, BPH. SURGICAL HISTORY: Cardiac catheterization, stent placement and CABG, cholecystectomy, tonsillectomy, hernia repair, appendectomy, arm surgery, coronary stents. SOCIAL HISTORY: Smokes about a pack a day. Quit drinking in 2008. FAMILY HISTORY: Reviewed and noncontributory. MEDICATIONS: Pending reconciliation, but he was supposed to be on Eliquis. He had been out of it for about 5 days, but he is not on aspirin. 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 The remaining medications of preliminary ones include: 1. Flomax. 2. Januvia. 3. Toprol-XL. 4. Vitamin B12. 5. Vitamin D3. 6. Amiodarone. 7. Atorvastatin. 8. Lipitor. 9. Glimepiride. 10. Metformin. 11. Omeprazole. ALLERGIES: He is allergic to amoxicillin and Mucinex. PHYSICAL EXAMINATION: GENERAL: Alert and oriented x3. No acute distress. HEENT: Extraocular movements intact. No icterus. No pallor. Mucous membranes moist without JVD. No lymphadenopathy. Multiple carious teeth. Some missing teeth and no tongue deviation. Normocephalic, atraumatic. NECK: No thyromegaly. No JVD. CARDIOVASCULAR: S1, S2 heard. No extra sounds or murmurs. RESPIRATORY: Diminished air entry bilaterally. No adventitious sounds. GI: Nontender. No organomegaly. MUSCULOSKELETAL: There is no edema. No clubbing. Hypoesthesia in the right leg involving the knee, from the knee below on the right side. There is mild if any drift noted on the right side, upper extremities and face. Cranial nerves intact otherwise. NEUROPSYCH: Cooperative, alert and oriented x3. No new signs or symptoms of an anxiety. VITAL SIGNS: Blood pressure is 151/72, respirations 20, heart rate is 80, temperature is 98.6, saturation 98% on room air. DIAGNOSTIC TESTS: The patient had a previously mentioned CT head and CT angiogram of the head and neck, CT perfusion studies, and CTA chest that were old without any significant abnormalities. His chemistry was normal except creatinine 1.7, glucose 172 and no recent comparison available for his creatinine. His liver enzymes are normal. His troponin is less than 0.01. His CBC is essentially normal except for the hemoglobin 12.6. His INR is 1 and his PTT is 23.0. ASSESSMENT: 1. Possible ischemic stroke with right-sided weakness that is still persistent by tPA. 2. Chest pain with negative initial assessment for ST elevation and negative initial troponin with negative CT angiogram of the chest, but could be related to withdrawal from Eliquis secondary to patient running out of medications. 3. Hypertension. 4. Dyslipidemia. 5. Diabetes. 6. Benign prostatic hyperplasia. 7. Tobacco dependence. 8. Possible chronic kidney disease. PLAN: 1. The patient received tPA and is going to be in the ICU post tPA, and the patient will continue on the Cardene drip for blood pressure control. 2. Regarding his chest pain, the patient assessment for ID with repeat troponin. The patient received aspirin as well. We will hold off on aspirin, antiplatelets, and anticoagulants given he had received tPA. 3. Repeat CT scan of the head in the morning. 4. We will repeat troponin level. 5. Consult Cardiology service for assessment of chest pain and possible need for intervention or testing with a stress test. 6. The patient was advised to stop smoking. 7. The patient will continue on statin and blood pressure control with preferably DEVI inhibitors or ARBs. If no contraindication, we will monitor renal function closely. Maintain gentle hydration. The patient is aware of the plan and continue PPI for his GERD and Valenzuela esophagus. The patient is DNR per his request. Discussed with the patient and family, and they are aware of the plan. /[id number] Brennan Lopes MD GG/AQ / GG / MODL CC: Dr. Head Electronically signed by [facility] Conversion Helicopter Repairer Cerner at 01/24/2023 10:21 AM CDT documented in this encounter Plan of Treatment Not on file documented as of this encounter Visit Diagnoses Not on filedocumented in this encounter Care Teams Precinct Police Captain Relationship Specialty Start Date End Date Munir KAYE Arceo [address] [address] PCP - General Nurse Practitioner 08/18/23 documented as of this encounter
--- OUTSIDE RECORDS SUMMARY | 2025-05-14 20:32 | XMS_ITS | Encounter Summary ---
Author Organization [employer] ([place], [place], [place], [place]) Address [address] [place] [address] Care Team Providers Care Rn Mds Name Role Phone MunirMarlyMarielos KAYE Primary Care Provider Encounter Details Date Type Department Care Team (Late st Contact Info) Description 10/14/2019 Transcribed Document [facility] [place] Family Medicine [address] [place] [address] ProviderHaroldo MD [address] [place] [address] Social History Tobacco Use Types Packs/Day Years Used Date Smoking Tobacco: Never Assessed Sex and Gender Information Value Date Recorded Sex Assigned at Not on file Legal Sex Male 3:45 PM CDT Gender Identity Not on file Sexual Orientation Not on file documented as of this encounter Miscellaneous Notes * Cerner Conversion Note - Historical ProviderMD - 10/14/2019 8:26 PM TANK CAR MECHANIC Consult Phone Call Documentation Entered On: 10/15/2019 8:29 EST Performed On: 10/14/2019 20:26 EST by ДМИТРИЙ JACK Phone Call for Consults Consult Phone Call/Page Attempt : First call Physician Requested for Consult : HERI LESLIE APRN Provider Service Notified Name : Cardiology ДМИТРИЙ JACK - 10/15/2019 8:28 EST Electronically signed by Brittany [facility] Conversion Scoring Machine Operator Cerner at 01/24/2023 10:46 AM CDT documented in this encounter Plan of Treatment Not on file documented as of this encounter Visit Diagnoses Not on filedocumented in this encounter Care Teams Rn Mds Relationship Specialty Start Date End Date Marielos Amaral, HTML WEB DEVELOPER [address] [place] [address] PCP - General Nurse Practitioner 08/18/23 documented as of this encounter
--- OUTSIDE RECORDS SUMMARY | 2025-05-14 20:32 | XMS_ITS | Encounter Summary ---
Author Organization [employer] ([place], [place], [place], [place]) Address [address] [place] [address] Care Team Providers Care Clinical Project Leader Name Role Phone AmaralMarielos KAYE Primary Care Provider Encounter Details Date Type Department Care Team (Late st Contact Info) Description 10/14/2019 Transcribed Document [facility] [place] Family Medicine [address] [place] [address] ProviderHaroldo MD [address] [place] [address] Social History Tobacco Use Types Packs/Day Years Used Date Smoking Tobacco: Never Assessed Sex and Gender Information Value Date Recorded Sex Assigned at Not on file Legal Sex Male 3:45 PM CDT Gender Identity Not on file Sexual Orientation Not on file documented as of this encounter Miscellaneous Notes * Cerner Conversion Note - Haroldo ProviderMD - 10/14/2019 6:48 PM MEDICAL COLLECTIONS SPECIALIST Event Note Entered On: 10/14/2019 18:49 EST Performed On: 10/14/2019 18:48 EST by LAZARA Hoang Event Note Event Date/Time : 10/14/2019 6:30 EST Event Location : Assigned room Event Details : Nursing assessment additional narrative Description of Event : Patient arrived via stretcher from ED. No acute distress. LAZARA Hoang - 10/14/2019 18:48 EST Electronically signed by Brittany [facility] Conversion Yard Person [employer] at 01/24/2023 10:44 AM CDT documented in this encounter Plan of Treatment Not on file documented as of this encounter Visit Diagnoses Not on filedocumented in this encounter Care Teams Clinical Project Leader Relationship Specialty Start Date End Date Marielos Amaral, FEED MILL MANAGER [address] [phone] PCP - General Nurse Practitioner 08/18/23 documented as of this encounter
--- OUTSIDE RECORDS SUMMARY | 2025-05-14 20:32 | XMS_ITS | Encounter Summary ---
Author Organization [employer] ([place], [place], [place], [place]) Address [address] [place] [address] Care Team Providers Care Labor Relations Or Personnel Negotiator Name Role Phone Marielos Amaral KAYE Primary Care Provider Encounter Details Date Type Department Care Team (Late st Contact Info) Description 10/14/2019 Transcribed Document [facility] [place] [address] [place] [address] ProviderHaroldo MD [address] [place] [address] Social History Tobacco Use Types Packs/Day Years Used Date Smoking Tobacco: Never Assessed Sex and Gender Information Value Date Recorded Sex Assigned at Not on file Legal Sex Male 3:45 PM CDT Gender Identity Not on file Sexual Orientation Not on file documented as of this encounter Miscellaneous Notes * Cerner Conversion Note - Haroldo ProviderMD - 10/14/2019 4:59 PM ENGINEER THIRD ASSISTANT Evaluation, Physical Therapy Entered On: 10/15/2019 11:08 EST Performed On: 10/15/2019 11:08 EST by EHSAN CONTRERAS, PT General Information, PT Therapy Diagnosis, PT : Impaired gt Co-treated by, PT : Occupational Therapist General Information Comment, PT : Admitted with Stroke, Chest Pain Hx of CAD, DM2, Angina, GERD, HLD, HTN, Migraines, Enlarged Prostate, Heart Failure S/P TPA but Dr Brandt told Deysi SMITH that we can go ahead and amb pt EHSAN CONTRERAS, PT - 10/15/2019 12:02 EST Visit Type, PT : Initial evaluation EHSAN CONTRERAS, PT - 10/15/2019 11:08 EST Patient Orders : Order Date Order Ordering MD 10/14/2019 16:59 PT Evaluation and Treatment Ordered By: TYSHAWN BRANDT MD-NEU Active Diagnoses : 10/14/2019 12:00 Cerebral infarction, unspecified 10/14/2019 12:00 Chest pain 10/14/2019 12:00 Chest pain, unspecified 10/14/2019 12:00 Hypertensive emergency 10/14/2019 12:00 Hypertensive urgency 10/14/2019 12:00 Other symptoms and signs involving the musculoskeletal system Admission Date : 10/14/2019 17:19 Personal Devices : Personal Devices No Devices Recorded Assistive Devices : Assistive Devices No Devices Recorded EHSAN CONTRERAS, PT - 10/15/2019 12:02 EST General Status Patient Received Status : Supine in bed Treatment Start Time : 10/15/2019 10:52 EST Patient Left Status : Up in chair, RN/PCT informed, Family/Visitors at bedside, Communication board completed, All needs met and within reach RN/PCT Informed Comment : OK to see per RN and Dr Brandt Treatment End Time : 10/15/2019 11:08 EST Treatment Time : 16 Minute(s) EHSAN CONTRERAS, PT - 10/15/2019 12:02 EST History and Environment Living Situation, Therapy : Home Patient Lives With : Spouse Persons Assisting Patient at Home : Spouse Persons Providing Information : Patient, Spouse Home Equipment Therapy, PT : None Home Setup : Basement Bedroom Location : Main level Bathroom #1 Location : Main level Stairs : Yes Stair Location(s) : Inside, Outside Stairs Inside Comment : Doesn't use basement Outside Stairs, Number of Steps : 4 Railing Outside : Yes Outside Railing Position : Bilateral EHSAN CONTRERAS, PT - 10/15/2019 12:02 EST Prior Level of Function PT GRID Prior LOF Ambulation, Household : Independent Prior LOF Ambulation, Community : Independent Prior LOF Bed Mobility : Independent Prior LOF Toileting : Independent Prior LOF Transfer : Independent EHSAN CONTRERAS, PT - 10/15/2019 12:02 EST Intervention Summary Heart Rate/Pulse Pre-intervention : 80 bpm BP Systolic Pre-intervention : 154 mmHg BP Diastolic Pre-intervention : 73 mmHg O2 Pre-Intervention : Room Air SpO2 Pre-Intervention : 99 % Heart Rate/Pulse Post-intervention : 94 bpm BP Systolic Post-intervention : 152 mmHg BP Diastolic Post-intervention : 70 mmHg O2 Post-Intervention : Room Air SpO2 Post-Intervention : 99 % EHSAN CONTRERAS, PT - 10/15/2019 12:02 EST Upper Extremity Upper Extremity Dominance : Right Right UE Active ROM : WFL Left UE Active ROM : L EHSAN CONTRERAS, PT 10/15/2019 12:02 EST Right Upper Extremity MMT Shoulder Flexion 0-180 : 4/good Elbow Flexion 0-150 : 4/good Elbow Extension 0-0 : 4/good EHSAN CONTRERAS, PT 10/15/2019 12:02 EST Left Upper Extremity MMT Shoulder Flexion 0-180 : 4/good Elbow Flexion 0-150 : 4/good Elbow Extension 0-0 : 4/good EHSAN CONTRERAS, PT 10/15/2019 12:02 EST Lower Extremity RLE Active ROM : [facility] LLE Active ROM : [facility] EHSAN CONTRERAS, PT 10/15/2019 12:02 EST Right Lower Extremity MMT Hip Flexion (0-125) : 5/normal Hip Abduction (0-45) : 5/normal Hip Adduction (0-20) : 5/normal Knee Flexion (0-140) : 5/normal Knee Extension (0-0) : 5/normal Ankle Dorsiflexion (0-20) : 5/normal EHSAN CONTRERAS, PT - 10/15/2019 12:02 EST Left Lower Extremity MMT Hip Flexion (0-125) : 5/normal Hip Abduction (0-45) : 5/normal Hip Adduction (0-20) : 5/normal Knee Flexion (0-140) : 5/normal Knee Extension (0-0) : 5/normal Ankle Dorsiflexion (0-20) : 5/normal EHSAN CONTRERAS, PT 10/15/2019 12:02 EST Functional Mobility Mobility Grid Bed Roll Left : Rehab Complete independence Bed Scooting : Rehab Complete independence Supine to Sit : Rehab Complete independence Sit to Stand : Supervision/set-up Bed to Chair : Supervision/set-up Stand to Sit : Supervision/set-up EHSAN CONTRERAS, PT - 10/15/2019 12:02 EST Sit to Stand Device : Belt, gait Bed to Chair Device : Belt, gait Stand to Sit Device : Belt, gait EHSAN CONTRERAS, PT - 10/15/2019 12:02 EST Gait Training/Assessment, PT Weight Bearing Status Maintained : Yes Weight Bearing Status : Full Gait Assistance Level : Assist, minimal Walking Distance : Amb 170' with contact for safety Ambulatory Devices : None, Gait belt Gait Deviations : Yes Gait Training Comment : Slight decrease in balance especially with turns EHSAN CONTRERAS, PT - 10/15/2019 12:02 EST Cognition Assessment, PT Orientation : Oriented x 4 Follows Basic Command Assessment : Yes EHSAN CONTRERAS, PT - 10/15/2019 12:02 EST Edu Topics Physical Therapy Education Grid Balance Training : Needs further teaching Bed Mobility Training : Returns demonstration Gait Training : Needs further teaching Transfer Training : Returns demonstration EHSAN CONTRERAS, PT - 10/15/2019 12:02 EST Indication Assesessment, PT Physical Therapy Indicated : Yes PT Problem List : Impaired, endurance tolerance, Impaired, gait Potential Barriers To Therapy : None evident Rehabilitation Potential : Good EHSAN CONTRERAS, PT - 10/15/2019 12:02 EST Plan of Care, PT PT Tx Plan/Goals Established w Patient : Yes PT Frequency Rehab : Daily PT Duration Rehab : Fourteen days PT Treatments Planned : Balance training, Gait training, Therapeutic exercises, Transfer training EHSAN CONTRERAS, PT - 10/15/2019 12:02 EST Short Term Goals Ambulation STG Grid Goal #1 Device : None Distance : 400' Assist : Supervision or set-up Date to Meet : 10/22/2019 EST Goal Status : Intial Goal EHSAN CONTRERAS, PT - 10/15/2019 12:02 EST Flour Worker Goals Ambulation LTG Grid Goal #1 Device : None Distance : 400' Assist : Independent, complete Date to Meet : 10/29/2019 EST Goal Status : Intial Goal EHSAN CONTRERAS, PT - 10/15/2019 12:02 EST Treatment Note Subjective Comment : His goal is to get up and walk Patient's Response to Treatment : Slight decrease in balance with amb especially with turns Additional Objective Information : Amb 170' with contact for safety Assessment : Needs work on balance with amb until able to amb ind with no loss of balance Plan for Treatment : Gt Ex EHSAN CONTRERAS, PT - 10/15/2019 12:02 EST Pain Assessment Pain Scaled Used : 0-10 Pain scale Pain Score Pre-Intervention : 0 EHSAN CONTRERAS, PT - 10/15/2019 12:02 EST Image 1 - Images currently included in the form version of this document have not been included in the text rendition version of the form. Anticipated Discharge Needs, OT/PT Anticipated Discharge to : Home, with family care EHSAN CONTRERAS, PT - 10/15/2019 12:02 EST [place] PT Charges PT Eval Moderate Complexity : 1 EHSAN CONTRERAS, PT - 10/15/2019 12:02 EST documented in this encounter Plan of Treatment Not on file documented as of this encounter Visit Diagnoses Not on filedocumented in this encounter Care Teams Labor Relations Or Personnel Negotiator Relationship Specialty Start Date End Date Marielos Amaral, KAYE [address] [address] PCP - General Nurse Practitioner 08/18/23 documented as of this encounter
--- OUTSIDE RECORDS SUMMARY | 2025-05-14 20:32 | XMS_ITS | Encounter Summary ---
Author Organization [employer] ([place], [place], [place], [place]) Address [address] [place] [address] Care Team Providers Care Tool Crib Manager Name Role Phone Marielos Amaral KAYE Primary Care Provider Encounter Details Date Type Department Care Team (Late st Contact Info) Description 10/14/2019 Transcribed Document [facility] Family Medicine [address] [place] [address] ProviderHaroldo MD [address] [place] [address] Social History Tobacco Use Types Packs/Day Years Used Date Smoking Tobacco: Never Assessed Sex and Gender Information Value Date Recorded Sex Assigned at Not on file Legal Sex Male 3:45 PM CDT Gender Identity Not on file Sexual Orientation Not on file documented as of this encounter Miscellaneous Notes * Cerner Conversion Note - Haroldo ProviderMD - 10/14/2019 8:22 PM FUR OPERATOR Patient: ZACKARY ANTOINE Age: 68 Years Sex: Male : 1950 Chief Complaint c/o L sided, non-radiating dull chest pressure constant in nature onset approx 2 weeks ago, reproduceable with movement of arm or laying on side. Primary Care Provider KATELYN MCKEON MD-[facility] Vital Signs T: 36.8 ??C TMIN: 36.6 ??C TMAX: 36.8 ??C HR: 81(Monitored) RR: 23 BP: 118/72 SpO2: 96% HT: 175.26 cm WT: 86.36 kg BMI: 28.1 Oxygen Settings (Last) Oxygen Therapy Mode: Room air (10/14/19 18:10:00) Assessment/Plan h and p dictated Cerebral infarction, unspecified, Cerebral infarction, unspecified, Stroke Chest pain Chest pain Hypertensive emergency Hypertensive urgency Right leg weakness VTE Prophylaxis - Medical Sequential Compression Device Start: 10/14/19 16:59:00 EST, Bilateral, Length: Knee High, While patient is in bed, Continuous Order (TYSHAWN BRANDT) Problem List/Past Medical History Ongoing Angina Coronary artery disease Diabetes mellitus type II Enlarged prostate GERD - Gastro-esophageal reflux disease Heart failure Heart murmur History of obstructive sleep apnea Hyperlipidemia Hypertension Impaired vision Migraine Stented coronary artery Historical No qualifying data Procedure/Surgical History 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), 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), DESTRUCTION OF ESOPHAGOGASTRIC JUNCTION, ENDO (01/20/2019), INTRODUCTION OF SERUM/TOX/VACCINE INTO MUSCLE, PERC APPROACH (02/16/2017), BYPASS 1 COR ART FROM L INT MAMMARY W AUTOL ART, OPEN (02/10/2017), BYPASS 3 COR ART FROM AORTA WITH AUTOL VN, OPEN APPROACH (02/10/2017), EXCISION OF LEFT GREATER SAPHENOUS VEIN, PERC ENDO APPROACH (02/10/2017), EXCISION OF RIGHT GREATER SAPHENOUS VEIN, PERC ENDO APPROACH (02/10/2017), FLUOROSCOPY OF LEFT HEART USING LOW OSMOLAR CONTRAST (02/07/2017), FLUOROSCOPY OF MULT COR ART USING L OSM CONTRAST (02/07/2017), MEASURE OF CARDIAC SAMPL & PRESSURE, L HEART, PERC APPROACH (02/07/2017), Appendectomy, Cardiac catheterization, Cholecystectomy;., Coronary stents, hernia repair, left arm surgery, Tonsillectomy. Home Medications (15) Active amiodarone 200 mg oral tablet 200 mg = 1 Tab, Oral, Daily amiodarone 200 mg oral tablet 200 mg = 1 Tab, Oral, Daily atorvastatin 40 mg oral tablet 40 mg = 1 Tab, Oral, At Bedtime Eliquis 5 mg oral tablet 5 mg = 1 Tab, Oral, [id number] Eliquis 5 mg oral tablet 5 mg [...] Int Units = 1 Tab, Oral, Daily Allergies Mucinex amoxicillin Social History Alcohol Alcohol Use History Yes. Date/Time of Last Drink: Quit in 2008. Use in Last 12 Months: No. Nutrition/Health Diabetic, Caffeine intake amount: 2 cups a day.. Substance Abuse Drug Use Hx: No. Use in Last 12 Months: No. Tobacco Former smoker, quit more than 30 days ago Smoking Status. Smokeless tobacco user within last 30 days Smokeless Tobacco Status. Snuff/Dip Smokeless Tobacco Use History. Years of Use: 43. Packs/Tins Daily: 0.5. Smoking Status Current every day smoker. Five or more cigarettes per day Smoking Frequency Within Last 30 Days. Use in Last 12 Months: No. Years of Use: 50. Packs/Tins Daily: 1. Last Used: 02/2017. Second Hand Smoke Exposure: Yes. Yes Smokeless Tobacco Use in Last 30 Days. None Smokeless Tobacco Use History. Use in Last 12 Months: Cigarettes. Smoking Status Current every day smoker. Years of Use: 46. Packs/Tins Daily: .5. Lab Results Test Name Test Result Date/Time Sodium Level 138 mmol/L 10/14/2019 14:46 EST Potassium Level 4.1 mmol/L 10/14/2019 14:46 EST Chloride Level 106 mmol/L 10/14/2019 14:46 EST Carbon Dioxide Level 25 mmol/L 10/14/2019 14:46 EST Anion Gap 11 10/14/2019 14:46 EST Glucose Level 172 mg/dL (High) 10/14/2019 14:46 EST Blood Urea Nitrogen 20 mg/dL 10/14/2019 14:46 EST Creatinine Level 1.70 mg/dL (High) 10/14/2019 14:46 EST eGFR 49 mL/min/1.73m2 (Low) 10/14/2019 14:46 EST eGFR NonAfrican 40 mL/min/1.73m2 (Low) 10/14/2019 14:46 EST Bun/Creatinine 11.8 10/14/2019 14:46 EST Calcium Level 8.6 mg/dL 10/14/2019 14:46 EST Protein Total 7.3 Gram/dL 10/14/2019 14:46 EST Albumin Level 3.6 Gram/dL 10/14/2019 14:46 EST Globulin 3.7 Gram/dL 10/14/2019 14:46 EST A/G Ratio 1.0 (Low) 10/14/2019 14:46 EST Bilirubin Total 0.4 mg/dL 10/14/2019 14:46 EST Alk Phos 87 Units/Liter 10/14/2019 14:46 EST AST 16 Units/Liter 10/14/2019 14:46 EST ALT 30 Units/Liter 10/14/2019 14:46 EST Troponin I Ultra <0.015 ng/mL 10/14/2019 14:46 EST WBC 7.8 K/uL 10/14/2019 14:46 EST RBC 4.07 Million/uL (Low) 10/14/2019 14:46 EST Hgb 12.6 g/dL (Low) 10/14/2019 14:46 EST Hct 37.5 % (Low) 10/14/2019 14:46 EST MCV 92.1 fL 10/14/2019 14:46 EST MCH 31.0 pg 10/14/2019 14:46 EST MCHC 33.6 Gram/dL 10/14/2019 14:46 EST Platelet Count 244 K/uL 10/14/2019 14:46 EST MPV 10.4 fL 10/14/2019 14:46 EST RDW 13.9 % 10/14/2019 14:46 EST Neut % 70.2 % 10/14/2019 14:46 EST Neut # 5.44 K/uL 10/14/2019 14:46 EST Lymph % 19.2 % (Low) 10/14/2019 14:46 EST Lymph # 1.49 K/uL 10/14/2019 14:46 EST Lincoln % 8.9 % 10/14/2019 14:46 EST Lincoln # 0.69 K/uL 10/14/2019 14:46 EST Eos % 1.4 % 10/14/2019 14:46 EST Eos # 0.11 10/14/2019 14:46 EST Baso % 0.3 % 10/14/2019 14:46 EST Baso # 0.02 10/14/2019 14:46 EST Slide Review No 10/14/2019 14:46 EST PT 10.3 Second(s) 10/14/2019 16:06 EST INR 1.0 10/14/2019 16:06 EST PTT 23.0 Second(s) (Low) 10/14/2019 16:06 EST Additional Documentation Code Status No Code Status Order on Record Electronically signed by Brittany, [facility] Conversion Golf Manager Cerner at 01/24/2023 10:28 AM CDT documented in this encounter Plan of Treatment Not on file documented as of this encounter Visit Diagnoses Not on filedocumented in this encounter Care Teams Tool Crib Manager Relationship Specialty Start Date End Date Marielos Amaral, ARTS AND CRAFTS INSTRUCTOR [address] [phone] PCP - General Nurse Practitioner 08/18/23 documented as of this encounter
--- OUTSIDE RECORDS SUMMARY | 2025-05-14 20:32 | XMS_ITS | Encounter Summary ---
Author Organization [employer] ([place], [place], [place], [place]) Address [address] [place] [address] Care Team Providers Care Tapeman Name Role Phone Munir Marielos RESTREPO Primary Care Provider Encounter Details Date Type Department Care Team (Late st Contact Info) Description 04/23/2022 Transcribed Document [facility] Family Medicine [address] [place] [address] ProviderHaroldo MD [address] [place] [address] Social History Tobacco Use Types [...] speak a language other than Cymro at [facility]? Yes 10/30/2024 Do you want help with [...] Conversion Note - Historical Provider, - 04/23/2022 1:50 PM CDT Treatment Intervention, OT Entered On: 04/24/2022 16:00 EDT Performed On: 04/24/2022 14:33 EDT by PAULO LAURA OTR/Melvin General Information, OT Visit Type, OT : Treatment Note Patient Orders : Order Date Order Ordering 04/22/2022 13:38 OT Evaluation and Treatment Ordered By: ASHLEY GALARZA PA 04/23/2022 13:50 Occupational Therapy Additional Tx Ordered By: Active Diagnoses : 04/22/2022 12:00 Acute kidney failure, unspecified 04/22/2022 12:00 Cervicalgia 04/22/2022 12:00 Hypotension, unspecified 04/22/2022 12:00 Other symptoms and signs involving the musculoskeletal system 04/22/2022 12:00 Pain in right shoulder 04/22/2022 12:00 Paresthesia of skin 04/22/2022 12:00 Potential stroke 04/22/2022 12:00 Syncope and collapse 04/22/2022 12:00 Syncope/Near syncope Therapy Diagnosis, OT : Decreased I with ADLs due to weakness Admission Date : 04/22/2022 12:30 Co-treated by, OT : Physical Therapist Personal Devices : Personal Devices No Devices Recorded Assistive Devices : Assistive Devices No Devices Recorded Precautions in Place : Fall prevention measures PAULO LAURA OTR/Melvin - 04/24/2022 15:57 EDT General Status Patient Received Status : Supine in bed Treatment Start Time : 04/24/2022 14:16 EDT Patient Left Status : Up in chair, RN/PCT informed, All needs met and within reach RN/PCT Informed Comment : LUIS sandy'ed tx. Treatment End Time : 04/24/2022 14:33 EDT Treatment Time : 17 Minute(s) PAULO LAURA OTR/Melvin - 04/24/2022 15:57 EDT Functional Mobility Mobility Grid Supine to Sit : Supervision/set-up Sit to Stand : Supervision/set-up Bed to Chair : Supervision/set-up Stand to Sit : Supervision/set-up LAURAPAULO OTR/Melvin - 04/24/2022 15:57 EDT Plan of Care, OT OT Tx Plan/Goals Established w Patient : Yes LAURAPAULO, GUNNAR/Melvin - 04/24/2022 15:57 EDT Retirement Goals, OT Grooming LTG Grid Goal #1 Activity : Grooming Assist : Independent, modified Date to Meet : 05/07/2022 EDT Goal Status : Initial goal Comment : standing at sink PAULO LAURA OTR/Melvin - 04/24/2022 15:57 EDT Dressing, Lower Body LTG Grid Goal #1 Activity : Dressing, Lower Body Assist : Independent, modified Date to Meet : 05/07/2022 EDT Goal Status : Initial goal PAULO LAURA OTR/Melvin - 04/24/2022 15:57 EDT Toilet Transfer LTG Grid Goal #1 Activity : Toilet Transfer, Ambulatory Assist : Independent, modified Date to Meet : 05/07/2022 EDT Goal Status : Progressing, continue PAULO LAURA OTR/Melvin - 04/24/2022 15:57 EDT Treatment Note Subjective Comment : Pt was agreeable, states he has been up ambulating in the room with a RWx, no difficulties. Patient's Response to Treatment : Pt tolerated tx well- BP stable throughout. Additional Objective Information : Pt was found supine upon arrival. Pt came to the EOB with supervision. Pt donned socks independently. Pt stood and ambulated 250' using a RWx with supervision. Pt deferred participation in ADLs this date. Pt returned to the room, was left up in a chair with all needs met and CL in reach. Assessment : Pt with good participation and progress in tx. Pt will benefit from x1-2 additional treatments to increase safety and independence in ADLs and functional mobility. Pt is nearing functional baseline. Plan for Treatment : See OT goals. PAUOL LAURA OTR/Melvin - 04/24/2022 15:57 EDT Pain Assessment Pain Comment : Pt with no complaints of pain. PAULO LAURA OTR/Melvin - 04/24/2022 15:57 EDT Image 1 - Images currently included in the form version of this document have not been included in the text rendition version of the form. Anticipated Discharge Needs, OT/PT Anticipated Discharge to : Home, with family care, Home, with home health PAULO LAURA OTR/Melvin - 04/24/2022 15:57 EDT Murdo OT Charges OT Ther Activities Ea 15 Min : 1 PAULO LAURA OTR/Melvin - 04/24/2022 15:57 EDT Electronically signed by Brittany [facility] Conversion Industrial Engineering Director Cerner at 01/24/2023 10:39 AM CDT documented in this encounter Plan of Treatment Not on file documented as of this encounter Visit Diagnoses Not on filedocumented in this encounter Care Teams Tapeman Relationship Specialty Start Date End Date Marielos Amaral, KAYE [address] [place] [address] PCP - General Nurse Practitioner 08/18/23 documented as of this encounter
--- OUTSIDE RECORDS SUMMARY | 2025-05-14 20:32 | XMS_ITS | Encounter Summary ---
Author Organization [employer] ([place], [place], [place], [place]) Address [address] [place] [address] Care Team Providers Care Carton Lettering Machine Operator Name Role Phone Munir Marielos RESTREPO Primary Care Provider Encounter Details Date Type Department Care Team (Late st Contact Info) Description 04/23/2022 Transcribed Document [facility] Family Medicine [address] [place] [address] ProviderHaroldo MD [address] [place] [address] Social History Tobacco Use Types [...] Do you speak a language other than Brazilian at [facility]? Yes 10/30/2024 Do you want help [...] Conversion Note - Historical Provider, - 04/23/2022 11:32 PM CDT On Going Discharge Planning Entered On: 04/23/2022 23:38 EDT Performed On: 04/23/2022 23:32 EDT by TYSHAWN RIGGINS, RN-Marketing Editor ED Care Management Progress Note Discharge Arrangements : Patient Post-Acute Information Patient Name: ZACKARY ANTOINE Gender: Male : [birth year] Age: 71 Years No Post-Acute Placement(s) Listed No Post-Acute Service(s) Listed No [place] Referral(s) Listed TYSHAWN RIGGINS, RN-Marketing Editor ED - 04/23/2022 23:32 EDT Narrative Progress Note Narrative Progress Note : Dx: a/c renal failure poa with metabolic acidosis, UTI, hyponatremia HPI: presents to [facility] with d/o weakness, sliding from bed this am, and not being strong enough to get up. Pt with hx of multiple strokes with residual right sides weakness, but worse over last 4 mths or so. Na 129. B/Cr 91/7.40. RA. BP 82/45. albumin iv x1. Rocephin iv. s/p 1L NS bolus in ED. nephro following. 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 CM attempted to meet with pt this evening for CM eval, but pt sleeping soundly. CM will need to f/u with pt for full CM eval and send referrals as appropriate, as pt will likely benefit from HH vs inpt rehab. TYSHAWN RIGGISN, RN-Marketing Editor ED - 04/23/2022 23:32 EDT documented in this encounter Plan of Treatment Not on file documented as of this encounter Visit Diagnoses Not on filedocumented in this encounter Care Teams Carton Lettering Machine Operator Relationship Specialty Start Date End Date Marielos Amaral, COPIER REPAIR TECHNICIAN [address] [phone] PCP - General Nurse Practitioner 08/18/23 documented as of this encounter
--- OUTSIDE RECORDS SUMMARY | 2025-05-14 20:32 | XMS_ITS | Encounter Summary ---
Author Organization [employer] ([place], [place], [place], [place]) Address [address] [place] [address] Care Team Providers Care Instrument Engineer Name Role Phone Munir Marielos RESTREPO Primary Care Provider Encounter Details Date Type Department Care Team (Late st Contact Info) Description 04/23/[address] [facility] Family Medicine [address] [place] [address] ProviderHaroldo MD [address] [place] [address] Social History Tobacco Use Types [...] Do you speak a language other than Mexican at [facility]? Yes 10/30/2024 Do you want help [...] Conversion Note - Historical Provider, - 04/23/2022 9:21 AM CDT PERFECT BIND MACHINE OPERATOR Therapy Screen Entered On: 04/23/2022 9:26 EDT Performed On: 04/23/2022 9:21 EDT by STACIA BROWN SLP Therapy Screen Medical Chart Reviewed, PERFECT BIND MACHINE OPERATOR : Yes Therapy Screen Completed, PERFECT BIND MACHINE OPERATOR : Yes Recommendations for Evaluation PERFECT BIND MACHINE OPERATOR : None Therapy Screen Comment, PERFECT BIND MACHINE OPERATOR : Neuro is currently not consulted, CVA does not appear to be in differential per hospitalist PA note. No communication deficits noted during bedside yesterday. Will defer communication eval. STACIA BROWN, PERFECT BIND MACHINE OPERATOR - 04/23/2022 9:21 EDT Electronically signed by Brittany [facility] Conversion Dramatic Critic Cerner at 01/24/2023 10:22 AM CDT documented in this encounter Plan of Treatment Not on file documented as of this encounter Visit Diagnoses Not on filedocumented in this encounter Care Teams Instrument Engineer Relationship Specialty Start Date End Date Marielos Amaral APRN [address] [phone] PCP - General Nurse Practitioner 08/18/23 documented as of this encounter
--- OUTSIDE RECORDS SUMMARY | 2025-05-14 20:32 | XMS_ITS | Encounter Summary ---
Author Organization [employer] ([place], [place], [place], [place]) Address [address] [place] [address] Care Team Providers Care Methods Engineer Name Role Phone Marielos Amaral APRN Primary Care Provider Encounter Details Date Type Department Care Team (Late st Contact Info) Description 04/14/2019 Transcribed Document [facility] [place] [address] [place] [address] ProviderHaroldo MD [address] [place] [address] Social History Tobacco Use Types Packs/Day Years Used Date Smoking Tobacco: Never Assessed Sex and Gender Information Value Date Recorded Sex Assigned at Not on file Legal Sex Male 3:45 PM CDT Gender Identity Not on file Sexual Orientation Not on file documented as of this encounter Miscellaneous Notes * Cerner Conversion Note - Haroldo ProviderMD - 04/14/2019 4:33 PM CDT [facility] IntraOp Summary Primary Physician: PRINCESS DOCKERY MD-GAE Finalized Date/Time: 04/14/19 16:39:43 Pt. Name: ELINADEION /Sex: 1950 Male Med Rec #: [id number] Physician: PRINCESS DOCKERY MD-GAE Financial #: [id number] Pt. Type: O Room/Bed: Admit/Disch: 04/14/19 14:02:00 - [place] [facility] - Case Attendance Entry 1 Entry 2 Entry 3 Case Attendee PRINCESS DOCKERY Bicknell, Ashley, RN OCTAVIA NORRIS MD MD-GAE Role Performed Surgeon/Proceduralist, Melangeur Operator, First Anesthesiologist First Time In 04/14/19 16:31:00 04/14/19 16:26:00 04/14/19 16:26:00 Time Out 04/14/19 16:40:00 04/14/19 16:40:00 04/14/19 16:40:00 Procedure Esophageal Biopsy, EGD Esophageal Biopsy, EGD Esophageal Biopsy, EGD w Radiofrequency w Radiofrequency w Radiofrequency Ablation Ablation Ablation Other Attendee Superficial Wound Closed By: Last Modified By: Ivone Humphreys, Ivone Sanders, Ivone Sanders RN 04/14/19 16:38:58 04/14/19 16:38:58 04/14/19 16:38:58 Entry 4 Case Attendee GISSELLE ESPINOZA Role Performed Scrub, First Time In 04/14/19 16:26:00 Time Out 04/14/19 16:40:00 Procedure Esophageal Biopsy, EGD w Radiofrequency Ablation Other Attendee Superficial Wound Closed By: Last Modified By: Ivone Humphreys RN 04/14/19 16:38:58 [facility] [place] Case Attendance Audit 04/14/19 16:38:58 Manager Play: BICKNEA Modifier: BICKNEA 1 <+> Time Out 1 <*> Procedure Esophageal Biopsy, EGD w Radiofrequency Ablation 2 <+> Time Out 2 <*> Procedure Esophageal Biopsy, EGD w Radiofrequency Ablation 3 <+> Time Out 3 <*> Procedure Esophageal Biopsy, EGD w Radiofrequency Ablation 4 <+> Time Out 4 <*> Procedure Esophageal Biopsy, EGD w Radiofrequency Ablation 04/14/19 16:36:43 Manager Play: BICKNEA Modifier: BICKNEA 1 <*> Procedure Esophageal Biopsy 2 <*> Procedure Esophageal Biopsy 3 <*> Procedure Esophageal Biopsy 4 <*> Procedure Esophageal Biopsy 04/14/19 16:36:34 Manager Play: BICKNEA Modifier: BICKNEA 1 <*> Procedure Esophagogastroduodenoscopy, Esophageal Biopsy 2 <*> Procedure Esophagogastroduodenoscopy, Esophageal Biopsy 3 <*> Procedure Esophagogastroduodenoscopy, Esophageal Biopsy 4 <*> Procedure Esophagogastroduodenoscopy, Esophageal Biopsy 04/14/19 16:33:43 Manager Play: CHASKNEA Modifier: BICKNEA 1 <*> Procedure Esophagogastroduodenoscopy 2 <*> Procedure Esophagogastroduodenoscopy 3 <*> Procedure Esophagogastroduodenoscopy 4 <*> Procedure Esophagogastroduodenoscopy 04/14/19 16:31:13 Manager Play: BICKNEA Modifier: BICKNEA 1 <*> Time In 04/14/19 16:26:00 1 <*> Procedure Esophagogastroduodenoscopy 04/14/19 16:27:03 Manager Play: BICKNEA Modifier: BICKNEA <+> 1 Procedure 2 <*> Procedure Esophagogastroduodenoscopy 3 <*> Procedure Esophagogastroduodenoscopy 4 <*> Procedure Esophagogastroduodenoscopy [facility] - Case Times Entry 1 Patient In Room Time 04/14/19 16:26:00 Out Room Time 04/14/19 16:40:00 Anesthesia Start Time 04/14/19 16:26:00 Stop Time 04/14/19 16:38:00 Anesthesia Ready 04/14/19 16:26:00 Surgery / Procedure Times Start Time 04/14/19 16:33:00 Stop Time 04/14/19 16:38:00 Last Modified By: Ivone Humphreys RN 04/14/19 16:38:53 [facility] - Case Times Audit 04/14/19 16:38:53 Manager Play: [email or web address] Modifier: BICKNEA <+> 1 Out Room Time <+> 1 Stop Time <+> 1 Stop Time 04/14/19 16:33:07 Manager Play: CHASKNEA Modifier: BICKNEA <+> 1 Start Time [facility] - Cultures and Spec Summary Entry 1 Cultrures and Specimens Specimen Ordered: Yes Test(s) Routine/Path-Lab Requested/Final Disposition Last Modified By: Ivone Humphreys RN 04/14/19 16:35:33 General Comments: distal esophagus biopsy [facility] - Delays Entry 1 Delay Reason Other Duration 0 Minute(s) Comment NO DELAY Last Modified By: Ivone Humphreys RN 04/14/19 16:26:37 [facility] - Departure from OR Entry 1 Integumentary Assessment Integumentary WDL Assessment WDL Transfer/Handoff Transfer to PACU Phase I Handoff Reported to Ivone Humphreys RN Post-op Transport Stretcher/Gurney Via Patient Transport Ivone Humphreys RN, Accompanied by OCTAVIA NORRIS MD Last Modified By: Ivone Humphreys RN 04/14/19 16:26:52 [facility] - Endoscopy Details Entry 1 Abdomen Procedure Soft, Non-Tender Assessment Procedure Abdomen 04/14/19 16:26:00 Assessment D/T Radio Frequency Ablation Last Modified By: Ivone uHmphreys RN 04/14/19 16:27:00 [facility] - Fire Risk Assessment Entry 1 Fire Info Surgical Site or 1- Yes Incision Above the Xyphoid Open O2 Source 1- Yes (Mask or Cannula) Available Ignition 1- Yes (ESU, Laser, Light Source) Fire Risk 3 Assessment Score Fire Score Fire Risk Yes Assessment Complete Fire Risk Ivone Humphreys RN Assessment Verified By Fire Risk 04/14/19 16:27:00 Assessment Verified Date/Time Fire Risk High Risk Protocol Yes Implemented Standard Fire Yes Safety Precautions Followed Last Modified By: Ivone Humphreys RN 04/14/19 16:27:07 [facility] - General Case Regulatory Process Manager 1 Case Information [place] [facility] 02 [facility] [place] Level 1 Room Verified Yes Wound Class II - Clean-Contaminated Specialty SN Gastroenterology Anesthesia Type MAC ASA 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 Last Modified By: Ivone Humphreys RN 04/14/19 16:39:42 [facility] - General Case Data Audit 04/14/19 16:39:42 Manager Play: BICKNEA Modifier: BICKNEA <+> 1 Postop Diagnosis 04/14/19 16:32:15 Manager Play: BOOGIEEA Modifier: BICKNEA 1 <+> Postop Same As Preop 1 <*> Preop Diagnosis K22.719 [facility] - Intraoperative Assessment Entry 1 Valid History / Yes Physical in Chart Preoperative Yes Checklist Reviewed/Evaluated Allergies Reviewed Yes Patient is Latex No Sensitive Level of WDL Consciousness (WDL = Alert, Oriented to Person, Place, and Time) Present Upon IVs, ECG monitored Arrival to OR Last Modified By: Ivone Humphreys RN 04/14/19 16:27:24 [facility] - Intraoperative Equipment Entry 1 Type Scope Equipment Intraop Monitoring Electrocardiogram Three lead placement (ECG) Electrode Placement Blood Pressure Arm, left upper Location Pulse Oximeter Hand, right Probe Site Antiembolic Devices Scopes Flexible Endoscopes Gastroscope Used Scope Serial 2466 Number/Identificatio n Number Photo/Video Documentation Photo Yes Video No Last Modified By: Ivone Humphreys RN 04/14/19 16:27:37 [facility] - Patient Positioning Entry 1 Procedure Esophageal Biopsy, EGD w Radiofrequency Ablation Body Position Lateral, right side up Left Arm Position Resting at side Right Arm Position Resting at side Left Leg Position Other Right Leg Position Other Position Comments Right leg over left leg uncrossed Feet Uncrossed Yes Pressure Points Yes Checked Positioned By Ivone Humphreys RN, OCTAVIA NORRIS MD Position Verified Positioning Yes Verified by Anesthesia Positioning Yes Verified by Surgeon Last Modified By: Ivone Humphreys RN 04/14/19 16:36:45 [facility] - Patient Positioning Audit 04/14/19 16:36:45 Manager Play: BICKNEA Modifier: BICKNEA 1 <*> Procedure Esophageal Biopsy 04/14/19 16:36:34 Manager Play: BICKNEA Modifier: BICKNEA 1 <*> Procedure Esophagogastroduodenoscopy, Esophageal Biopsy 04/14/19 16:33:45 Manager Play: BICKNEA Modifier: BICKNEA 1 <*> Procedure Esophagogastroduodenoscopy [facility] - Sign In Entry 1 Patient, Site, Yes Procedure Identified Surgical Consent Yes Confirmed Relevant Surgical Yes Documents Available Surgical Site N/A Marked by person performing procedure Allergies Yes Airway Hypothermia Risk No Warming Measures No Taken Last Modified By: Ivone Humphreys RN 04/14/19 16:27:59 [facility] - Sign Out Entry 1 RN Confirmation Surgical Yes Procedure(s) Identified Instrument, Sponge N/A and Sharps Counts Correct/Documented Equipment Problems N/A Documented Specimen Labeled Yes Correctly Urinary Catheter N/A Documented in IView Safety Checklist Yes Elements Complete? RN Sign Out Ivone Humphreys, LUIS Signature RN Sign Out 04/14/19 16:40:00 Signature Date/Time Plan of Care Outcome - Fire Risk OUTCOME STATEMENT: Goal met Patient is free from injury related to surgical fire Plan of Care Outcome - Pt Positioning OUTCOME STATEMENT: Goal met Absence of signs and symptoms of positioning injury. Plan of Care Outcome - Skin Prep OUTCOME STATEMENT: Goal met Intraoperative care is consistent with measures to prevent infection Plan of Care Outcome - Xray/Images OUTCOME STATEMENT: N/A Absence of observable signs or symptoms of radiation injury Plan of Care Outcome - Counts OUTCOME STATEMENT: N/A Absence of signs and symptoms of injury related to extraneous objects Last Modified By: Ivone Humphreys RN 04/14/19 16:39:14 [facility] - Surgical Procedures Entry 1 Entry 2 Procedure EGD w Radiofrequency Esophageal Biopsy Ablation Modifiers Additional Procedure Description Primary Procedure Yes No Primary Surgeon PRINCESS DOCKERY, PRINCESS DOCKERY MD-GAE MD-GAE Start 04/14/19 16:33:00 04/14/19 16:33:00 Stop 04/14/19 16:38:00 04/14/19 16:38:00 Physician States Cecum Reached Anesthesia Type MAC MAC Specialty SN Gastroenterology SN Gastroenterology Wound Class II - Clean-Contaminated II - Clean-Contaminated Last Modified By: Ivone Humphreys, Ivone Sanders RN 04/14/19 16:39:00 04/14/19 16:39:00 [facility] - Surgical Procedures Audit 04/14/19 16:39:00 Manager Play: BICKNEA Modifier: BICKNEA <+> 1 Stop <+> 2 Stop 04/14/19 16:36:40 Manager Play: CHASKNEA Modifier: BICKNEA 1 <*> Procedure Esophagogastroduodenoscopy 04/14/19 16:33:38 Manager Play: BICKNEA Modifier: BICKNEA <+> 1 Start <+> 2 Procedure <+> 2 Primary Procedure <+> 2 Primary Surgeon <+> 2 Specialty <+> 2 Start <+> 2 Wound Class <+> 2 Anesthesia Type 04/14/19 16:28:17 Manager Play: BOOGIEEA Modifier: BICKNEA 1 <*> Procedure Esophagogastroduodenoscopy 1 <+> Specialty [facility] - Time Out Entry 1 Procedure to be Esophageal Biopsy, EGD Performed w Radiofrequency Ablation Time Out Time Out Pause Time 04/14/19 16:31:00 All activity Yes suspended (unless life threatening emergency) Team Verbally Correct patient Confirms Information identity, Correct side and site are marked, Consent form is present and accurate, Agreement on the procedure to be done, Correct patient position, Relevant images/results properly labeled/appropriately displayed Antibiotic N/A Prophylaxis Administered Or In Progress Within the Last 60 Minutes Beta Frank N/A Administered Venous N/A Thromboembolism Prophylaxis Required Anticipated Critical Events Surgeon None expected Last Modified By: Ivone Humphreys RN 04/14/19 16:36:45 [facility] - Time Out Audit 04/14/19 16:36:45 Manager Play: ZAC Modifier: ZAC 1 <*> Procedure to be Performed Esophageal Biopsy 04/14/19 16:36:35 Manager Play: ZAC Modifier: CHASKNEA 1 <*> Procedure to be Performed Esophagogastroduodenoscopy, Esophageal Biopsy 04/14/19 16:33:46 Manager Play: ZAC Modifier: BICKNEA 1 <*> Procedure to be Performed Esophagogastroduodenoscopy Case Comments <None> Finalized By: Ivone Humphreys RN Document Signatures Signed By: Ivone Humphreys RN 04/14/19 16:39 documented in this encounter Plan of Treatment Not on file documented as of this encounter Visit Diagnoses Not on filedocumented in this encounter Care Teams Methods Engineer Relationship Specialty Start Date End Date Marielos Amaral, LIBERAL ARTS TEACHER [address] [address] PCP - General Nurse Practitioner 08/18/23 documented as of this encounter
--- OUTSIDE RECORDS SUMMARY | 2025-05-14 20:32 | XMS_ITS | Encounter Summary ---
Author Organization [employer] ([place], [place], [place], [place]) Address [address] [place] [address] Care Team Providers Care Naturalization Examiner Name Role Phone Munir Marielos RESTREPO Primary Care Provider [phone] Encounter Details Date Type Department Care Team (Late st Contact Info) Description 04/23/2022 Transcribed Document [facility] [place] [address] [place] [address] ProviderHaroldo MD [address] [place] [address] Social History Tobacco Use Types [...] Never 10/30/2024 How often does anyone, zehra havrey family and friends, insult or talk down [...] Do you speak a language other than Belgian at [facility]? Yes 10/30/2024 Do you want help with [...] Historical Provider, - 04/23/2022 9:[address] [facility] [place] OPTICAL ENGINEER Charges Entered On: 04/23/2022 9:26 EDT Performed On: 04/23/2022 9:21 EDT by STACIA BROWN, RAMONA Ricks OPTICAL ENGINEER Charges Screen For Speech Therapy : 1 STACIA BROWN SLP - 04/23/2022 9:21 EDT documented in this encounter Plan of Treatment Not on file documented as of this encounter Visit Diagnoses Not on filedocumented in this encounter Care Teams Naturalization Examiner Relationship Specialty Start Date End Date Marielos Amaral, AFFILIATE MARKETING COORDINATOR [address] [phone] PCP - General Nurse Practitioner 08/18/23 documented as of this encounter
--- OUTSIDE RECORDS SUMMARY | 2025-05-14 20:32 | XMS_ITS | Encounter Summary ---
Author Organization [employer] ([place], [place], [place], [place]) Address [address] [place] [address] Care Team Providers Care Regional Economist Name Role Phone Marielos Amaral KAYE Primary Care Provider Encounter Details Date Type Department Care Team (Late st Contact Info) Description 10/14/2019 Transcribed Document [facility] [place] [address] [place] [id number] ProviderHaroldo MD [address] [place] [address] Social History Tobacco Use Types Packs/Day Years Used Date Smoking Tobacco: Never Assessed Sex and Gender Information Value Date Recorded Sex Assigned at Not on file Legal Sex Male 3:45 PM CDT Gender Identity Not on file Sexual Orientation Not on file documented as of this encounter Miscellaneous Notes * Cerner Conversion Note - Haroldo Warren MD - 10/14/2019 5:07 PM ELECTRONIC GAMING DEVICE SUPERVISOR DATE OF CONSULTATION: 10/14/2019 NEUROLOGY CONSULTATION REASON FOR CONSULT: Acute stroke. HISTORY OF PRESENT ILLNESS: This is a 68-year-old male with a history of prior stroke, coronary artery disease, diabetes, hypertension, hyperlipidemia, atrial fibrillation, who presented to the emergency room today initially with complaints of chest pain. While he was being evaluated for the chest pain, he developed right leg weakness and numbness at about 3:55 p.m. This was witnessed by the emergency room physician who immediately called a code stroke. I did evaluate the patient emergently, where he did have ongoing right leg weakness and numbness, but no involvement in other extremities and denies any changes to speech or vision. Due to the chest pain and unilateral leg weakness, he was also evaluated for the possibility of aortic dissection prior to receiving thrombolytics, which did cause a delay in his receiving thrombolytics, but ultimately the bolus was started at 4:51 p.m. The patient does have a history of prior stroke in February of 2019, also with right-sided weakness, although symptoms had resolved. He is supposed to be taking Eliquis, but ran out of that medication last week and his last dose was last Friday. He reports compliance with his other medications, but has not been on any type of antiplatelet or anticoagulant agents for over a week till date. Discussion was done with the patient regarding risks and benefits of thrombolytics, and he did elect to proceed with tPA for his ongoing stroke symptoms. Again, as noted above, aortic dissection was evaluated for and not seen on a CT of the chest before thrombolytics were given. The patient does have some mild renal failure, but in the course of his workup, the benefits of contrasted studies were felt to outweigh the risks of worsening renal failure. PAST MEDICAL HISTORY: Stroke, coronary artery disease, hypertension, hyperlipidemia, diabetes, atrial fibrillation. HOME MEDICATIONS: 1. Tamsulosin. 2. Omeprazole. 3. Atorvastatin. 4. Glimepiride. 5. Metoprolol. 6. Eliquis. 7. Metformin. 8. Amiodarone. 9. Lisinopril. 10. Cholecalciferol. 11. Cyanocobalamin. 12. Januvia. 13. Lisinopril. SOCIAL HISTORY: He lives at home with family. He smokes about a half pack to a pack of cigarettes per day. He has denied use of alcohol or illicit drugs. FAMILY HISTORY: Noncontributory at this time. REVIEW OF SYSTEMS: As per HPI. No significant headaches. No fevers or chills. Ongoing right leg weakness and numbness. No change in speech or vision. No arm involvement. Chest pain is mild and improving but ongoing. No shortness of breath. No nausea or vomiting. No bowel or bladder complaints. No recent falls or trauma. Otherwise, complete review of systems is negative. PHYSICAL EXAMINATION: GENERAL: He is awake, alert, well oriented, in no acute distress. Remote and recent memory are grossly intact, although assessment is limited in the critical setting. VITAL SIGNS: Initial blood pressure 190s/90s; just before he received tPA, his blood pressure was 184/93. Heart rate 82, temperature 97.9. CARDIAC: Normal sinus rhythm. LUNGS: Clear to auscultation. EXTREMITIES: No clubbing, cyanosis, or edema. NEUROLOGIC: Speech is fluent with intact comprehension. He is not dysarthric. Cranial nerves II through XII are intact. Visual canela were full. Funduscopic exam deferred in the critical setting. Motor strength is 5/5 in both upper extremities, 3/5 in the right lower extremity with drift, 5/5 in the left lower extremity. Muscle bulk and tone are normal. No abnormal movements. He has decreased sensation in the right leg as compared to the left. Otherwise, sensation intact, not ataxic with [id number]. Deep tendon reflexes were not assessed in the critical care setting, and I did not attempt to ambulate the patient. Currently, NIH Stroke Scale is 2 for right leg weakness and numbness. DIAGNOSTIC STUDIES: IMAGING STUDIES: His initial head CT was unremarkable. I reviewed these images and confirmed with Radiology. He had a CTA of the head and neck, CTA of the chest, CT perfusion. Per preliminary report, he may have some left carotid stenosis, but there was no evidence for large vessel occlusion, no evidence for aortic dissection. I did review all of these images personally and with the radiologist. LABORATORY RESULTS: Blood work here notable for a creatinine of 1.7. His hemoglobin is 12, platelets 244. PT and PTT all within normal limits. Of note, workup in the past including an MRI did show small infarcts in the left frontal vertex and motor strip. Carotid imaging at that time was unremarkable. ASSESSMENT AND PLAN: A 68-year-old male with history of prior stroke, atrial fibrillation, usually on anticoagulation, admitted initially with chest pain, who ultimately developed right leg weakness and numbness concerning for acute stroke. He had no absolute contraindications to thrombolytics and once an aortic dissection was ruled out, he received tPA just under 60 minutes from symptom onset. He will be admitted for further workup, and I have entered the stroke protocol. We will follow his renal function closely. Plan to restart his Eliquis when appropriate and likely continue with the cardiac workup as well. Speech, Physical, and Occupational Therapy will be consulted and any further recommendations will be based on the patient's clinical course. Plan was discussed at length with the patient and his significant other, and questions were answered. At the time of this dictation, 60 minutes of critical care time has been spent in evaluation of this patient. /[id number] MD NABEEL Mcdermott/JEAN PAUL / NABEEL / MOHSEN /[id number] Electronically signed by Brittany, [facility] Conversion Harvest Worker Fruit Cerner at 01/24/2023 10:43 AM CDT documented in this encounter Plan of Treatment Not on file documented as of this encounter Visit Diagnoses Not on filedocumented in this encounter Care Teams Regional Economist Relationship Specialty Start Date End Date Marielos Amaral APRN [address] [phone] PCP - General Nurse Practitioner 08/18/23 documented as of this encounter
--- OUTSIDE RECORDS SUMMARY | 2025-05-14 20:32 | XMS_ITS | Encounter Summary ---
Author Organization [employer] ([place], [place], [place], [place]) Address [address] [place] [address] Care Team Providers Care Office Workforce Planner Name Role Phone Munir Marielos RESTREPO Primary Care Provider [phone] Encounter Details Date Type Department Care Team (Late st Contact Info) Description 04/22/2022 Transcribed Document [facility] [place] Family Medicine [address] [place] [address] ProviderHaroldo MD [address] [place] [address] Social History Tobacco Use Types [...] Do you speak a language other than Serbian at [facility]? Yes 10/30/2024 Do you want [...] Cerner Conversion Note - Historical Provider, - 04/22/2022 11:31 AM CDT CR Chest 1 Vw Portable Ordered: 04/22/2022 Auth (Verified) Reason for Exam: syncope 04/22/2022 11:03 04/22/2022 11:31 (ANISA CRAVEN) No further action required documented in this encounter Plan of Treatment Not on file documented as of this encounter Visit Diagnoses Not on filedocumented in this encounter Care Teams Office Workforce Planner Relationship Specialty Start Date End Date Marielos Amaral, KAYE [address] [place] [address] PCP - General Nurse Practitioner 08/18/23 documented as of this encounter
--- OUTSIDE RECORDS SUMMARY | 2025-05-14 20:32 | XMS_ITS | Encounter Summary ---
Author Organization [employer] ([place], [place], [place], [place]) Address [address] [place] [address] Care Team Providers Care Manager Fire Name Role Phone AmaralMarielos KAYE Primary Care Provider Encounter Details Date Type Department Care Team (Late st Contact Info) Description 04/14/2019 Transcribed Document [facility] [place] [address] [place] [address] ProviderHaroldo MD [address] [place] [address] Social History Tobacco Use Types Packs/Day Years Used Date Smoking Tobacco: Never Assessed Sex and Gender Information Value Date Recorded Sex Assigned at Not on file Legal Sex Male 3:45 PM CDT Gender Identity Not on file Sexual Orientation Not on file documented as of this encounter Miscellaneous Notes * Cerner Conversion Note - Haroldo Warren MD - 04/14/2019 5:05 PM CDT Patient Education Materials Follows: Instructions for after EGD with Biopsy 1. Try sips of water first. If tolerated, resume your regular diet or one recommended by your physician. 2. Do not drive, operate machinery, make critical decisions, drink alcoholic beverages, or do activities that require coordination or balance for 24 hours. 3. You may experience a sore throat for 24 to 48 hours. You may use throat lozenges or gargle with warm salt water to relieve the discomfort. 4. Because air was put into your stomach during the procedure, you may experience some belching. 5. Go directly to the emergency room if you notice any of the following: Chills and/or fever over 101 Persistent vomiting or vomiting with blood/nasal regurgitation Severe abdominal pain, other than gas cramps Severe chest pain Black, tarry stools Please see Discharge paperwork for additional instructions from your physician. If you have any questions on the above instructions, call the GI Lab and ask for an endoscopy nurse. Friday-Friday 7:00 am to 3:00 pm at documented in this encounter Plan of Treatment Not on file documented as of this encounter Visit Diagnoses Not on filedocumented in this encounter Care Teams Manager Fire Relationship Specialty Start Date End Date Marielos Amaral, KAYE [address] [phone] PCP - General Nurse Practitioner 08/18/23 documented as of this encounter
--- OUTSIDE RECORDS SUMMARY | 2025-05-14 20:32 | XMS_ITS | Encounter Summary ---
Author Organization [employer] ([place], [place], [place], [place]) Address [address] [place] [address] Care Team Providers Care Roofing Tile Sorter Name Role Phone Marielos Amaral KAYE Primary Care Provider Encounter Details Date Type Department Care Team (Late st Contact Info) Description 04/14/2019 Transcribed Document [facility] [place] [address] [place] [id number] ProviderHaroldo MD [address] [place] [id number] Social History Tobacco Use Types Packs/Day Years Used Date Smoking Tobacco: Never Assessed Sex and Gender Information Value Date Recorded Sex Assigned at Not on file Legal Sex Male 3:45 PM CDT Gender Identity Not on file Sexual Orientation Not on file documented as of this encounter Miscellaneous Notes * Cerner Conversion Note - Haroldo ProviderMD - 04/14/2019 4:40 PM CDT DATE OF PROCEDURE: 04/14/2019 PREOPERATIVE DIAGNOSIS(ES): POSTOPERATIVE DIAGNOSIS(ES): PROCEDURE: Esophagogastroduodenoscopy with cold biopsies and radiofrequency ablation. SURGEON: Endoscopist: Neto Lopez M.D. REFERRING PHYSICIAN: Axel Hamlin M.D. EQUIPMENT: Olympus GIF-190 gastroscope. MEDICATION: MAC sedation. INDICATION: Mr. 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 He did undergo initial radiofrequency ablation in January 2019. The patient did well with this. He returns today for re-evaluation and reassessment with biopsies and possible repeat ablation. Cardiac and lung assessment prior to the examination was stable. FINDINGS: The scope was passed directly into the upper esophagus and advanced to the third portion of the duodenum. The postbulbar duodenum and duodenal bulb were normal. There was mild lymphoid stasis. The scope was withdrawn through a normal pylorus in the stomach. There was some retained solid food content suggestive of gastric dysmotility. The remainder of the stomach was normal except for some mild gastropathy. The scope was then withdrawn into the esophagus. There was marked improvement of the Valenzuela's esophagus. There was a short amount of remaining Valenzuela's identified and this would comprise may be less than 1-2 cm of Valenzuela's. Narrow band imaging was utilized to take some selected biopsies of the Valenzuela's. Subsequently, the remaining Valenzuela's was cauterized using the radiofrequency ablation. There was no evidence of reflux esophagitis. IMPRESSION: Much improved Valenzuela's esophagus with a couple of tongues of Valenzuela's (less than 1-2 cm) remaining. Status post selected biopsies and radiofrequency ablation. PLAN: I will discuss the findings with the patient and family. I will likely bring him back in one year for repeat EGD and reassessment. I would continue PPI therapy. Neto Lopez M.D. Dict: 04/14/2019 16:40:59 Trans: 04/14/2019 21:34:53 CC1: Neto Lopez M.D. CC2: Axel Hamlin M.D. documented in this encounter Plan of Treatment Not on file documented as of this encounter Visit Diagnoses Not on filedocumented in this encounter Care Teams Roofing Tile Sorter Relationship Specialty Start Date End Date Marielos Amaral APRN [address] [address] PCP - General Nurse Practitioner 08/18/23 documented as of this encounter
--- OUTSIDE RECORDS SUMMARY | 2025-05-14 20:32 | XMS_ITS | Encounter Summary ---
Author Organization [employer] ([place], [place], [place], [place]) Address [address] [place] [address] Care Team Providers Care Nurse Prn Name Role Phone Marielos Amaral KAYE Primary Care Provider Encounter Details Date Type Department Care Team (Late st Contact Info) Description 10/14/2019 Transcribed Document [facility] [place] [address] [place] [address] ProviderHaroldo MD [address] [place] [address] Social History Tobacco Use Types Packs/Day Years Used Date Smoking Tobacco: Never Assessed Sex and Gender Information Value Date Recorded Sex Assigned at Not on file Legal Sex Male 3:45 PM CDT Gender Identity Not on file Sexual Orientation Not on file documented as of this encounter Miscellaneous Notes * Cerner Conversion Note - Haroldo ProviderMD - 10/14/2019 8:20 PM HOOP MAKER HELPER MACHINE Spiritual Care Assessment Entered On: 10/14/2019 20:22 EST Performed On: 10/14/2019 20:20 EST by LUCY SANDERS Chaplain General Information Initial Visit : No Referred by : follow-up Ministry Provided to : Family/Significant other Worship Preference : No caodaism LUCY SANDERS Chaplain - 10/14/2019 20:20 EST Spiritual Assessment Spiritual Assessment Comment/Summary Points : follow up visit with Enriqueta, providing and enjoying conversation about her previous family members who were in [facility]. She has been here many times with several family members being patients down through many years. Spirital Assessment Comment/Summary Report : SPIRITUAL ASSESSMENT COMMENT/SUMMARY Spiritual Assessment Comment/Summary 10/14/19 20:18:00 responded to code stroke page @ 16:00. supportive presence and conversation with patient's , Enriqueta. 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 kaiawhina kohanga reo care provided in ED during assessment of stroke. Signed By: LUCY SANDERS Chaplain ELGIN, DAVID L, Chaplain - 10/14/2019 20:20 EST documented in this encounter Plan of Treatment Not on file documented as of this encounter Visit Diagnoses Not on filedocumented in this encounter Care Teams Nurse Prn Relationship Specialty Start Date End Date Marielos Amaral APRN [address] [address] PCP - General Nurse Practitioner 08/18/23 documented as of this encounter
--- OUTSIDE RECORDS SUMMARY | 2025-05-14 20:32 | XMS_ITS | Encounter Summary ---
Author Organization [employer] ([place], [place], [place], [place]) Address [address] [place] [address] Care Team Providers Care Classifier Name Role Phone Marielos Amaral KAYE Primary Care Provider Encounter Details Date Type Department Care Team (Late st Contact Info) Description 10/15/2019 Transcribed Document [facility] [place] [address] [place] [address] ProviderHaroldo MD [address] [place] [address] Social History Tobacco Use Types Packs/Day Years Used Date Smoking Tobacco: Never Assessed Sex and Gender Information Value Date Recorded Sex Assigned at Not on file Legal Sex Male 3:45 PM CDT Gender Identity Not on file Sexual Orientation Not on file documented as of this encounter Miscellaneous Notes * Cerner Conversion Note - Haroldo ProviderMD - 10/15/2019 3:24 PM VEGETABLE FARMER Initial Discharge Planning Entered On: 10/15/2019 15:26 EST Performed On: 10/15/2019 15:24 EST by HARITHA BARRIOS Rn-Director Of Assessment Initial Assessment I Previously Documented Living Environment : No qualifying data available. HARITHA BARRIOS Rn-Director Of Assessment - 10/15/2019 15:26 EST Living Situation : Home Patient Lives With : Spouse Is the Patient a Caregiver at Home? : No Emergency Contact #1 : Enriqueta Emergency Contact #1 Emergency Contact #1 Relationship : Spouse Emergency Contact #2 : January Emergency Contact #2 Emergency Contact #2 Relationship : daughter Enter Doctors Name : Axel Hamlin Does Patient have PCP Listed? : Yes Medical Durable Power of College Recruiter Name : None on file Legal Guardian : No Is Guardianship Needed : No HARITHA BARRIOS Rn-Director Of Assessment - 10/15/2019 15:24 EST Initial Assessment II Sensory and Motor Deficits : None Current Home Treatments and Equipment : Bedside commode, Blood glucose monitor, Cane, CPAP, Shower chair, Walker HARITHA BARRIOS Rn-Director Of Assessment - 10/15/2019 15:24 EST Discharge Needs I Anticipated Discharge Date : 10/16/2019 EST Anticipated Discharge To, CM : Home with family care Current Home Treatment/Equipment : Current Home Treatment/Equipment No qualifying data available. Post Acute/Home Treatments : Blood glucose monitor, CPAP, Shower chair, Walker Documentation Status Complete : Yes HARITHA BARRIOS Rn-Director Of Assessment - 10/15/2019 15:24 EST Discharge Needs II Professional Skilled Services : Professional Skilled Services No qualifying data available. Needs Assistance with Transportation : No Discharge Options Discussed with Patient : Discharge transportation, DME, Home Health HARITHA BARRIOS Rn-Director Of Assessment - 10/15/2019 15:24 EST Narrative Note Narrative Note : Day 1 - CVA on TPA to end late today with f/u CT scan at 17:00. Hx CVA ; CAD; CABG with stents, A-fib (home Eliquis), DM Low Readmission Risk Pt alert/awake in bed/spouse @ bedside. PLOF independent, drives, DME listed. Pt has mail order Eliquis and was out and he missed a few days dosing. No AD on file; spouse Enriqueta states he has one somewhere but unable to provide at this time. Anticipate pt will d/c home without needs over the weekend. IM completed. HARITHA BARRIOS Rn-Director Of Assessment - 10/15/2019 15:26 EST documented in this encounter Plan of Treatment Not on file documented as of this encounter Visit Diagnoses Not on filedocumented in this encounter Care Teams Classifier Relationship Specialty Start Date End Date Marielos Amaral APRN [address] [address] PCP - General Nurse Practitioner 08/18/23 documented as of this encounter
--- OUTSIDE RECORDS SUMMARY | 2025-05-14 20:32 | XMS_ITS | Encounter Summary ---
Author Organization [employer] ([place], [place], [place], [place]) Address [address] [place] [address] Care Team Providers Care Full Time Name Role Phone AmaralMarielos roque KAYE Primary Care Provider [phone] Encounter Details Date Type Department Care Team (Late st Contact Info) Description 10/14/2019 Transcribed Document [facility] [place] [address] [place] [address] ProviderHaroldo MD [address] [place] [address] Social History Tobacco Use Types Packs/Day Years Used Date Smoking Tobacco: Never Assessed Sex and Gender Information Value Date Recorded Sex Assigned at Not on file Legal Sex Male 3:45 PM CDT Gender Identity Not on file Sexual Orientation Not on file documented as of this encounter Miscellaneous Notes * Cerner Conversion Note - Haroldo ProviderMD - 10/14/2019 8:26 PM ADJUNCT PSYCHOLOGY PROFESSOR Pain Assessment Entered On: 10/15/2019 13:43 EST Performed On: 10/15/2019 10:44 EST by Deysi Valdes RN Intervention Information: acetaminophen Performed by RISA STRANGE on 10/15/2019 09:44:00 EST acetaminophen,650mg Oral,Pain (Mild 1-3) Pain Assessment Pain Assessment : Follow-up assessment Pain Scale Goal : 2 Pain Improved by Intervention : Yes Deysi Valdes RN - 10/15/2019 13:43 EST Electronically signed by Interface, [facility] Conversion Director Pres[employer]ner at 01/24/2023 10:30 AM CDT documented in this encounter Plan of Treatment Not on file documented as of this encounter Visit Diagnoses Not on filedocumented in this encounter Care Teams Full Time Relationship Specialty Start Date End Date Marielos Amaral, KAYE [address] [phone] PCP - General Nurse Practitioner 08/18/23 documented as of this encounter
--- OUTSIDE RECORDS SUMMARY | 2025-05-14 20:32 | XMS_ITS | Encounter Summary ---
Author Organization [employer] ([place], [place], [place], [place]) Address [address] [place] [address] Care Team Providers Care Digital Imager Name Role Phone AmaralMarielos roque KAYE Primary Care Provider Encounter Details Date Type Department Care Team (Late st Contact Info) Description 10/14/2019 Transcribed Document [facility] [place] [address] [place] [address] ProviderHaroldo MD [address] [place] [address] Social History Tobacco Use Types Packs/Day Years Used Date Smoking Tobacco: Never Assessed Sex and Gender Information Value Date Recorded Sex Assigned at Not on file Legal Sex Male 3:45 PM CDT Gender Identity Not on file Sexual Orientation Not on file documented as of this encounter Miscellaneous Notes * Cerner Conversion Note - Haroldo ProviderMD - 10/14/2019 5:17 PM MOHS SURGEON/GENERAL DERMATOLOGIST Admission History, Adult Entered On: 10/14/2019 18:33 EST Performed On: 10/14/2019 17:17 EST by LAZARA Hoang Advance Directive Patient has Advance Directive *Q : Yes, Advance Directive not with the patient Advance Directive Type : Living will Copy Advance Directive Verified/on Chart : No LAZARA Hoang - 10/14/2019 18:28 EST Anesthesia/Transfusion History Family History of Anesthesia Reaction : No prior transfusion(s) Transfusion History : Prior anesthesia without reaction Family History of Anesthesia Reaction : None Intubation History : Unknown LAZARA Hoang - 10/14/2019 18:28 EST Functional Assessment Living Situation : Home Current Daily Living Assistance : None Sensory Deficits : None Mobility Assistance Prior to Admission : Independent STARK Hx Falls Immediate/Within 3 Months : No Current Home Treatments : CPAP LAZARA Hoang - 10/14/2019 18:28 EST General Info Preferred Name : Clint Mode of Arrival on Unit : Ambulatory Legal Guardian : Spouse Legal Guardian : No Support Person/Patient Software Implementation Specialist : Yes Support Person/Pt Rep Name : Enriqueta - Contact Password : peanut Support Person/Pt Rep Contact Information : [phone] Want Family/Rep/Phys Notified of Admit : No Emergency Contact #1 : Enriqueta Emergency Contact #1 Emergency Contact #1 Relationship : Spouse Emergency Contact #2 : January Emergency Contact #2 Emergency Contact #2 Relationship : daughter Chief Complaint : c/o L sided, non-radiating dull chest pressure constant in nature onset approx 2 weeks ago, reproduceable with movement of arm or laying on side. Information Obtained From : Patient, Spouse Primary Language : Luxembourger Preferred Communication Mode : Verbal Communication Barrier : None LAZARA Hoang - 10/14/2019 18:28 EST Fall Risk Scales ABCs Fall Injury Risk Identification : Coagulation ABC Fall Injury Risk : Moderate to high injury risk Injury Moderate to High Risk Interventions : Bed alarm on, Chair alarm on, Fall mat, Fall contract/letter per facility policy, High Risk for Fall Injury sign in place per policy, Hip protectors, Patient room close to nurses station, Personal alarm on, Specialty low bed, Supervise toileting as indicated, Toileting schedule, Transport methods appropriate to patient, Video observation in place, Visual cues in place, Wrist band (fall risk) on per policy, Fall Injury Intervention Refused STARK Hx Falls Immediate/Within 3 Months : No Stark Secondary Diagnosis : Yes STARK Use of Ambulatory Aid : Bed rest/Nurse assist STARK IV Therapy or IV Access : Yes Stark Gait/Transferring : Normal, bedrest, immobile Stark Mental Status : Oriented to own ability Stark Fall Risk Score : 35 STARK Fall Scale Risk Level : 25-45 Medium Risk [place] Fall Interventions : Adequate lighting, Assistive devices within reach, Bed in low position, Call device within reach, Fall prevention handout/education per facility policy, Frequent orientation to call device, Frequent orientation to surroundings, Hourly comfort/safety rounds, Non-slip footwear, Personal items within reach, Reinforced to call for assistance before getting out of bed, Room free of clutter/spills, Upper side-rails up, Wheels locked, Wires/Cords secured Fall Risk Scale Calc Temp : 2 LAZARA Hoang - 10/14/2019 18:28 EST Health Histories Smoking Status : 10 or more cigarettes (1/2 pack or more)/day in last 30 days Smokeless Tobacco Status : Never Desires Tobacco Cessation Medication : No Reason for No Tobacco Cessation Medication : Refuses FDA approved medications LAZARA Hoang - 10/14/2019 18:28 EST Social History (As Of: 10/14/2019 18:33:40 EST) Tobacco: Use in Last 12 Months: Cigarettes. Smoking Status Current every day smoker. Years of Use: 46. Packs/Tins Daily: .5. (Last Updated: 07/20/2014 09:37:44 EDT by RAVEN REILLY, RN) Smoking Status Current every day smoker. Five or more cigarettes per day Smoking Frequency Within Last 30 Days. Use in Last 12 Months: No. Years of Use: 50. Packs/Tins Daily: 1. Last Used: 02/2017. Second Hand Smoke Exposure: Yes. Yes Smokeless Tobacco Use in Last 30 Days. None Smokeless Tobacco Use History. (Last Updated: 02/07/2017 12:26:55 EDT by Jack Aldana, LUIS) Former smoker, quit more than 30 days ago Smoking Status. Smokeless tobacco user within last 30 days Smokeless Tobacco Status. Snuff/Dip Smokeless Tobacco Use History. Years of Use: 43. Packs/Tins Daily: 0.5. (Last Updated: 04/14/2019 14:21:23 EDT by MIKO GALLAGHER, RN) Alcohol: Alcohol Use History Yes. Date/Time of Last Drink: Quit in 2008. Use in Last 12 Months: No. (Last Updated: 04/14/2019 14:21:58 EDT by MIKO GALLAGHER, RN) Substance Abuse: Drug Use Hx: No. Use in Last 12 Months: No. (Last Updated: 01/20/2019 12:43:06 EDT by CORRINA QUINTANA, RN) Nutrition/Health: Diabetic, Caffeine intake amount: 2 cups a day.. (Last Updated: 04/14/2019 14:22:28 EDT by MIKO GALLAGHER RN) Height and Weight, Clinical Dosing Height Source : Stated Height Entry Format : Todd Height, Feet : 5 ft(Converted to: 152 cm, 60 Inch) Height, Inches : 9 Inch(Converted to: 0 ft 9 Inch, 22.86 cm) Clinical Height : 175.26 cm Weight Source : Bed scale Weight Entry Format : Todd Clinical Dosing Weight : 86.36 kg Weight, Pounds : 190 lb Body Surface Area (BSA) : 2.02 m2 Body Mass Index : 28.1 kg/m2 (HI) [place] Body Weight : 70 kg LAZARA Hoang 10/14/2019 18:28 EST Infectious Disease History Infectious Disease History : Chicken pox/Shingles, Influenza, Measles, Mumps, Rubella Isolation Needed : Standard Fever/Chills Last 48 Hours : No Travel To Regions with Travel Advisories : No Travel Outside [place] Within Last 30 Days : No Contact With Traveler to Advisory Region : No Tuberculosis Symptoms : None LAZARA Hoang - 10/14/2019 18:28 EST Tetanus Immunization Status Previous Tetanus Immunizations : No qualifying data available. Tetanus Immunization : Greater than 5 years LAZARA Hoang 10/14/2019 18:28 EST Influenza Vaccine Asmt, Adult Previous Vaccines from Immunization Schedule : Previous Vaccines and Immunizations pneumococcal 23-polyvalent vaccine: 0.5 mL (02/16/17 11:14:00) Influenza Immunization, Current Season : Yes LAZARA Hoang 10/14/2019 18:28 EST Pneumococcal Vaccine Previous Vaccines from Immunization Schedule : Previous Vaccines and Immunizations pneumococcal 23-polyvalent vaccine: 0.5 mL (02/16/17 11:14:00) Pneumonia Immunization Received : Yes LAZARA Hoang 10/14/2019 18:28 EST Order Details Order Detail : N/A LAZARA Hoang 10/14/2019 18:28 EST Nutrition History Adaptive Feeding Equipment : Regular Oral Medication Administration : By mouth Eating Poorly Due to Decreased Appetite : No Unplanned Weight Loss in Past 3-6 Months : No Malnutrition Screening Tool Total(mal) : 0 Malnutrition Screening Tool Risk Level : Patient not at risk LAZARA Hoang 10/14/2019 18:28 EST [place] Suicide Severity Rating Scale (C-SSRS) CSSRS Past Month Wish to be : No CSSRS Past Month Suicidal Thoughts : No CSSRS Lifetime Suicide Behavior : No Suicide Severity Rating Score : 0 Suicide Severity Rating : No Additional Care Required at this time LAZARA Hoang [address] 10/14/2019 18:28 EST Psychosocial History Chronic/Terminal Illness w/Freq Visits : No Do You Have a History of the Following? : Patient denies history Currently in Unsafe Situation : No LAZARA Hoang Melvin - 10/14/2019 18:28 EST Sleep Apnea Risk Assmt BiPAP/CPAP Ordered for Home Use : Yes Hx of Obstructive Sleep Apnea Diagnosis : Yes BiPAP/CPAP Used at Home : Yes Age over 50 Years Old : Yes Gender Male : Yes LAZARA Hoang [address] 10/14/2019 18:28 EST Spiritual/Cultural Needs Any Spiritual/Cultural Needs or Requests : No LAZARA Hoang [address] 10/14/2019 18:28 EST Valuables and Belongings Valuables and Belongings : No clothing, No comfort items, No jewelry, No personal devices, No personal items, No assistive devices, No respiratory devices, No medications LAZARA Hoang [address] 10/14/2019 18:28 EST documented in this encounter Plan of Treatment Not on file documented as of this encounter Visit Diagnoses Not on filedocumented in this encounter Care Teams Digital Imager Relationship Specialty Start Date End Date Marielos Amaral, KAYE [address] [phone] PCP - General Nurse Practitioner 08/18/23 documented as of this encounter
--- OUTSIDE RECORDS SUMMARY | 2025-05-14 20:32 | XMS_ITS | Encounter Summary ---
Author Organization [employer] ([place], [place], [place], [place]) Address [address] [place] [address] Care Team Providers Care Weasand Trimmer Name Role Phone Marielos Amaral KAYE Primary Care Provider [phone] Encounter Details Date Type Department Care Team (Late st Contact Info) Description 10/14/2019 Transcribed Document [facility] [place] Family Medicine [address] [place] [address] ProviderHaroldo MD [address] [place] [address] Social History Tobacco Use Types Packs/Day Years Used Date Smoking Tobacco: Never Assessed Sex and Gender Information Value Date Recorded Sex Assigned at Not on file Legal Sex Male 3:45 PM CDT Gender Identity Not on file Sexual Orientation Not on file documented as of this encounter Miscellaneous Notes * Cerner Conversion Note - Haroldo ProviderMD - 10/14/2019 4:59 PM ELECTRIC REFRIGERATOR SERVICER Nutrition Assessment Entered On: 10/15/2019 8:33 EST Performed On: 10/15/2019 8:33 EST by Almaz Chaudhari Dietitian Nutrition Assessment Current Nutrition Regimen Comment : 10/15: Rec'd consult for stroke pt. CT of head showed no acute abnormalities. HUMAN RESOURCE STATISTICIAN eval; pt passed and on diabetic diet. Intakes establishing. Meds/labs reviewed. No skin breakdown. LBM fishing captain. RD will rescreen in 2-3 days to monitor po intake and provide ONS prn. Almaz Chaudhari Dietitian - 10/15/2019 10:53 EST Nutrition Assessment Reason : Automatic referral Almaz Chaudhari Dietitian - 10/15/2019 8:32 EST Electronically signed by Brittany [facility] Conversion Manager Recovery Cerner at 01/24/2023 10:36 AM CDT documented in this encounter Plan of Treatment Not on file documented as of this encounter Visit Diagnoses Not on filedocumented in this encounter Care Teams Weasand Trimmer Relationship Specialty Start Date End Date Marielos Amaral, SUPERINTENDENT MARINE [address] [place] [address] PCP - General Nurse Practitioner 08/18/23 documented as of this encounter
--- OUTSIDE RECORDS SUMMARY | 2025-05-14 20:32 | XMS_ITS | Encounter Summary ---
Author Organization [employer] ([place], [place], [place], [place]) Address [address] [place] [address] Care Team Providers Care Anthropological Linguist Name Role Phone Marielos Amaral APRN Primary Care Provider Encounter Details Date Type Department Care Team (Late st Contact Info) Description 10/14/2019 Transcribed Document [facility] [place] Family Medicine [address] [place] [address] ProviderHaroldo MD [address] [place] [id number] Social History Tobacco Use Types Packs/Day Years Used Date Smoking Tobacco: Never Assessed Sex and Gender Information Value Date Recorded Sex Assigned at Not on file Legal Sex Male 3:45 PM CDT Gender Identity Not on file Sexual Orientation Not on file documented as of this encounter Miscellaneous Notes * Cerner Conversion Note - Historical ProviderMD - 10/14/2019 5:11 PM AMMUNITION ASSEMBLY LABORER CR Chest 1 Vw Portable Ordered: 10/14/2019 Modified Reason for Exam: Chest Pain 10/14/2019 15:41 10/14/2019 17:11 (MARILYN TOM APRN) Reviewed by Provider, No further action required x1 documented in this encounter Plan of Treatment Not on file documented as of this encounter Visit Diagnoses Not on filedocumented in this encounter Care Teams Anthropological Linguist Relationship Specialty Start Date End Date Marielos Amaral APRN [address] [address] PCP - General Nurse Practitioner 08/18/23 documented as of this encounter
--- OUTSIDE RECORDS SUMMARY | 2025-05-14 20:32 | XMS_ITS | Referral Summary ---
Author Organization [employer] ([place], [place], [place], [place]) Address [address] [place] [address] Care Team Providers Care Stallion Manager Name Role Phone AmaralMarielos roque KAYE Primary Care Provider [phone] Allergies Active Allergy Reactions Criticality Noted Date Comments Amoxicillin Hives High 08/18/2023 Penicillins Rash Low 08/18/2023 Medications omeprazole (PriLOSEC) 40 MG capsule Take 1 capsule (40 mg total) by mouth daily. 2 Active levothyroxine (SYNTHROID) 75 MCG tablet Take 1 tablet (75 mcg total) by mouth daily. Active acetaminophen (TYLENOL) 650 MG CR tablet Take 1 tablet (650 mg total) by mouth every 8 (eight) hours as needed for pain. Active aspirin 81 MG EC tablet Take 1 tablet (81 mg total) by mouth daily. Active atorvastatin (LIPITOR) 20 MG tablet Take 1 tablet (20 mg total) by mouth nightly. Active clopidogreL (PLAVIX) 75 mg tablet Take 1 tablet (75 mg total) by mouth daily. Active bumetanide (BUMEX) 0.5 MG tablet Take 1 tablet (0.5 mg total) by mouth daily. Active bumetanide (BUMEX) 0.5 MG tablet Take 1 tablet (0.5 mg total) by mouth daily as needed (any weight gain) *May take this in addition to the scheduled dose*. Active ferrous sulfate 325 (65 FE) MG EC tablet Take 1 tablet (325 mg total) by mouth daily with breakfast. Active finasteride (PROSCAR) 5 mg tablet Take 1 tablet (5 mg total) by mouth daily. Active isosorbide dinitrate (ISORDIL) 10 MG tablet Take 1 tablet (10 mg total) by mouth 3 (three) times daily. Active insulin glargine (LANTUS, SEMGLEE) 100 unit/mL injection Inject 20 Units subcutaneously nightly. Active melatonin 3 mg tablet Take 2 tablets (6 mg total) by mouth nightly. Active insulin lispro (HUMALOG, ADMELOG) 100 unit/mL injection Inject subcutaneously 4 (four) times daily before meals and nightly Sliding scale insulin . Active cholecalcifero l, vitamin D3, 1,250 mcg (50,000 unit) tab Take 1 tablet (50,000 Units total) by mouth once a week. Active Active Problems Problem Noted Date Diagnosed Date Weak 10/30/2024 Atrial fibrillation with RVR 09/12/2024 Immunizations Name Administration Dates Next Due INFLUENZA(FLUCELVAX)_0.5 mL(6MOS+)TRI([id number]) Social History Tobacco Use Types Packs/Day Years Used Date Smoking Tobacco: Never Smokeless Tobacco: Never Tobacco Cessation:Counseling Given: Not Answered Alcohol Use Standard Drinks/Week Comments Never 0 (1 standard drink = 0.6 oz pur e alcohol) Utilities Answer Date Recorded In the past [...] Do you speak a language other than Luxembourgish at [facility]? Yes 10/30/2024 Do you want help [...] Sign Reading Time Taken Comments Blood Pressure 145/81 11/03/2024 12:30 PM EST Pulse 98 11/03/2024 12:30 PM EST Temperature 36.3 C (97.3 F) 11/03/2024 12:30 PM EST Respiratory Rate 16 10/31/2024 1:20 PM EST Oxygen Saturation 98% 11/03/2024 12:30 PM EST Inhaled Oxygen Concentration - - Weight 74.2 kg (163 lb 9.3 oz) 11/03/2024 6:00 A M EST Height 175.3 cm (5' 9 ) 10/30/2024 2:50 AM EST Body Mass Index 24.16 10/30/2024 2:50 AM EST Plan of Treatment Not on file Procedures Procedure Name Priority Date/Time Associated Diagnosis Comments HEPATITIS PANEL, ACUTE STAT 09/15/2024 2:53 PM EST from Last 3 Months or Most Recently Relevant to Health Maintenance Results * Hepatitis panel, acute (09/15/2024 2:53 PM EST) Hep A IgM Nonreactive Nonreactive, Equivocal 09/15/2024 4:51 PM EST [facility] Hep B C IgM Nonreactive Nonreactive 09/15/2024 4:51 PM EST [facility] Hepatitis B surface antigen Nonreactive Nonreactive, Equivocal 09/15/2024 4:51 PM EST [facility] Hepatitis C Ab Nonreactive Nonreactive, Equivocal 09/15/2024 4:51 PM EST [facility] Blood Venipuncture / Unknown 09/15/2024 2:53 PM EST 09/15/2024 3:10 PM EST [facility] - 09/15/2024 4:51 PM EST Hepatitis A Antibody IgM: (a) A negative test result does not exclude the possibility of exposure to the hepatitis A virus. (b) This test can be used to determine if a patient has or recently had an acute or asymptomatic hepatitis A infection. (c) A reactive result does not exclude co-infection by another hepatitis virus. Biotin supplements can cause clinically significant incorrect lab results. The FDA has seen an increase in the number of adverse events related to biotin interference with lab tests. Hepatitis B Core Antibody IgM: A reactive anti-HBc IgM result does not exclude co-infection by another hepatitis virus. Biotin supplements can cause clinically significant incorrect lab results. The FDA has seen an increase in the number of adverse events related to biotin interference with lab tests. Hepatitis B Surface Antibody Qual: This test does not differentiate between a vaccine induced immune response and an immune response induced by infection with HBV. Individuals that have received blood component therapies, (e.g. whole blood, plasma, immunoglobulin) administered during the previous 3 to 6 months may have a false reactive anti HBs due to passive transfer of anti HBs. A positive anti HBs result does not exclude co infection by another hepatitis virus. Biotin supplements can cause clinically significant incorrect lab results. The FDA has seen an increase in the number of adverse events related to biotin interference with lab tests. Hepatitis B Surface Antigen: This test may not detect all HBV mutants. If acute or chronic HBV infection is suspected and this test is non-reactive other HBV markers should be tested. Biotin supplements can cause clinically significant incorrect lab results. The FDA has seen an increase in the number of adverse events related to biotin interference with lab tests. Hepatitis C Antibody: A negative test result does not exclude the possibility of exposure to the hepatitis C virus and a reactive result does not exclude co-infection by another hepatitis virus. Biotin supplements can cause clinically significant incorrect lab results. The FDA has seen an increase in the number of adverse events related to biotin interference with lab tests. Wilson Goode MD LAB BLOOD ORDERABLES Final Re sult [facility] [address] [place] [address], [facility] [phone] from Last 3 Months or Most Recently Relevant to Health Maintenance Insurance [facility] Advance Directives For more information, please contact: [phone] * Full Code (Latest Code Status on File) Date Activated Date Inactivated Comments 10/30/2024 6:02 AM 11/03/2024 2:46 PM * DNR - Limited Additional Intervention Date Activated Date Inactivated Comments 09/13/2024 7:54 PM 09/24/2024 2:07 PM * Full Code Date Activated Date Inactivated Comments 09/13/2024 2:54 PM 09/13/2024 7:54 PM * Full Code Date Activated Date Inactivated Comments 09/13/2024 2:54 PM 09/13/2024 2:54 PM * Full Code Date Activated Date Inactivated Comments 09/12/2024 10:30 AM 09/13/2024 2:54 PM Healthcare Agents on File Name Relationship Healthcare Agent Relationshi p Communication Enriqueta Danilo Spouse Healthcare Decision-Maker Care Teams Stallion Manager Relationship Specialty Start Date End Date Marielos Amaral, BEDSPREAD SEAMER [address] [place] [id number] PCP - General Nurse Practitioner 08/18/23
--- OUTSIDE RECORDS SUMMARY | 2025-05-14 20:32 | XMS_ITS | Encounter Summary ---
Author Organization [employer] ([place], [place], [place], [place]) Address [address] [place] [address] Care Team Providers Care Sandfill Operator Name Role Phone Marielos Amaral KAYE Primary Care Provider Encounter Details Date Type Department Care Team (Late st Contact Info) Description 10/14/2019 Transcribed Document [facility] [place] [address] [place] [address] ProviderHaroldo MD [address] [place] [address] Social History Tobacco Use Types Packs/Day Years Used Date Smoking Tobacco: Never Assessed Sex and Gender Information Value Date Recorded Sex Assigned at Not on file Legal Sex Male 3:45 PM CDT Gender Identity Not on file Sexual Orientation Not on file documented as of this encounter Miscellaneous Notes * Cerner Conversion Note - Haroldo ProviderMD - 10/14/2019 1:50 PM STATE'S ATTORNEY ED Assessment Entered On: 10/14/2019 15:40 EST Performed On: 10/14/2019 14:00 EST by Ivone Damon, WELL TREATMENT OFFSIDER Quick Look Assessment Level of Consciousness : Alert, Awake Affect/Behavior : Appropriate, Calm, Cooperative Orientation : Oriented x 4 Skin Temperature : Warm Skin Description : Normal for ethnicity Ivone Damon, RN - 10/14/2019 15:38 EST ED General-Functional Assess Information Obtained From : Patient, Spouse Preferred Communication Mode : Verbal Communication Barrier : None Primary Language : Liberian Any Spiritual/Cultural Needs or Requests : No Currently in Unsafe Situation : No Ivone Damon RN - 10/14/2019 15:38 EST Social Habits Smoking Status : 10 or more cigarettes (1/2 pack or more)/day in last 30 days Smokeless Tobacco Status : Never Desires Tobacco Cessation Medication : No Reason for No Tobacco Cessation Medication : ED/procedural patient only Desires Tobacco Cessation Calc : 1 Ivone Damon RN - 10/14/2019 15:38 EST Social History (As Of: 10/14/2019 15:40:42 EST) Tobacco: Use in Last 12 Months: [...] Updated: 02/07/2017 12:26:55 EDT by Jack Aldana, RN) Former smoker, quit more than 30 days [...] (Last Updated: 01/20/2019 12:43:06 EDT by CORRINA QUINTANA RN) Nutrition/Health: Diabetic, Caffeine intake amount: 2 cups a day.. (Last Updated: 04/14/2019 14:22:28 EDT by MIKO GALLAGHER, RN) Cardiovascular ASMT, ED Cardiovascular Assessment WDL : WDL with exceptions Cardiovascular Symptoms : Pressure at rest, Pressure with activity Heart Rhythm : Regular Ivone Damon RN - 10/14/2019 15:38 EST Respiratory Breath Sounds Auscultated : Posterior, Anterior Respiratory Assessment WDL : JEREMIE Cough : None Ivone Damon RN - 10/14/2019 15:38 EST Breath Sounds Assessment Grid All Lobes Breath Sounds : Clear Ivone Damon RN - 10/14/2019 15:38 EST Respiratory Pattern Description : Regular Sputum Amount : None Ivone Damon RN - 10/14/2019 15:38 EST Gastrointestinal ED Gastrointestinal Assessment WDL : Ivone Hudson RN - 10/14/2019 15:38 EST Genitourinary Assessment, ED Genitourinary Assessment WDL : Ivone Hudson RN - 10/14/2019 15:38 EST Neurologic ASMT, ED Neurologic Assessment WDL : Ivone Hudson RN - 10/14/2019 15:38 EST Electronically signed by [facility] Conversion Professor Sculpture Cerner at 01/24/2023 10:31 AM CDT documented in this encounter Plan of Treatment Not on file documented as of this encounter Visit Diagnoses Not on filedocumented in this encounter Care Teams Sandfill Operator Relationship Specialty Start Date End Date Marielos Amaral, KAYE [address] [id number] PCP - General Nurse Practitioner 08/18/23 documented as of this encounter
--- OUTSIDE RECORDS SUMMARY | 2025-05-14 20:32 | XMS_ITS | Encounter Summary ---
Author Organization [employer] ([place], [place], [place], [place]) Address [address] [place] [address] Care Team Providers Care Metal Miner Name Role Phone Marielos Amaral KAYE Primary Care Provider Encounter Details Date Type Department Care Team (Late st Contact Info) Description 10/14/2019 Transcribed Document [facility] [place] [facility] [place] [address] ProviderHaroldo MD [address] [place] [address] Social History Tobacco Use Types Packs/Day Years Used Date Smoking Tobacco: Never Assessed Sex and Gender Information Value Date Recorded Sex Assigned at Not on file Legal Sex Male 3:45 PM CDT Gender Identity Not on file Sexual Orientation Not on file documented as of this encounter Miscellaneous Notes * Cerner Conversion Note - Haroldo ProviderMD - 10/14/2019 6:15 PM SLIVER HANDLER ED Discharge Entered On: 10/14/2019 19:02 EST Performed On: 10/14/2019 18:15 EST by Ivone Damon power hammer operator Process Patient Disposition : Admit/Observe Personal Belongings With Patient : Yes Patient Education Completed : Yes Teaching Evaluation : Verbalizes understanding IV Discontinued : No Nursing Documentation Completed : Yes Ivone Damon, RN - 10/14/2019 19:01 EST Admission, ED Nurse Report Accepted By : RIG SITE ENGINEER Nurse Report Acceptance Time : 10/14/2019 18:15 EST `Nurse Report (Hand Off) : Called Accompanied By, Discharge : Spouse, Other: RN; monitor Mode Of Departure : Ivone Back RN - 10/14/2019 19:01 EST documented in this encounter Plan of Treatment Not on file documented as of this encounter Visit Diagnoses Not on filedocumented in this encounter Care Teams Metal Miner Relationship Specialty Start Date End Date Marielos Amaral, KAYE [address] [place] [address] PCP - General Nurse Practitioner 08/18/23 documented as of this encounter
--- OUTSIDE RECORDS SUMMARY | 2025-05-14 20:33 | XMS_ITS | Encounter Summary ---
Author Organization [email or web address] ([place], [place], [place], [place]) Address [address] [place] [address] Care Team Providers Care Material Flow Analyst Name Role Phone Marielos Amaral KAYE Primary Care Provider Encounter Details Date Type Department Care Team (Late st Contact Info) Description 02/08/2019 Transcribed Document [facility] [place] [address] [place] [address] ProviderHaroldo MD [address] [place] [address] Social History Tobacco Use Types Packs/Day Years Used Date Smoking Tobacco: Never Assessed Sex and Gender Information Value Date Recorded Sex Assigned at Not on file Legal Sex Male 3:45 PM CDT Gender Identity Not on file Sexual Orientation Not on file documented as of this encounter Miscellaneous Notes * Cerner Conversion Note - Haroldo ProviderMD - 02/08/2019 9:00 PM CDT NIH Stroke Scale *Q Entered On: 02/09/2019 6:04 EDT Performed On: 02/08/2019 21:00 EDT by Cara Chaudhary RN NIH Stroke Scale *Q NIH Assessment Interval : Other: shift Time of Assessment : 02/08/2019 21:00 EDT NIH Clinician Administering Scale : Cara Chaudhary RN NIH Level of Consciousness (1A) : [...] drift NIH Motor Leg, Right (6B) : No drift NIH Limb Ataxia (7) : Present in one limb NIH Sensory (8) : Normal NIH Best Language (9) : No aphasia NIH Dysarthria (10) : Normal Extinction and Inattention (11) : No abnormality NIH Scale Score : 1 Cara Chaudhary RN - 02/09/2019 6:04 EDT documented in this encounter Plan of Treatment Not on file documented as of this encounter Visit Diagnoses Not on filedocumented in this encounter Care Teams Material Flow Analyst Relationship Specialty Start Date End Date Marielos Amaral APRN [address] [address] PCP - General Nurse Practitioner 08/18/23 documented as of this encounter
--- OUTSIDE RECORDS SUMMARY | 2025-05-14 20:33 | XMS_ITS | Encounter Summary ---
Author Organization [employer] ([place], [place], [place], [place]) Address [address] [place] [address] Care Team Providers Care Telegraph Repeater Mechanic Name Role Phone Munir Marielos RESTREPO Primary Care Provider Encounter Details Date Type Department Care Team (Late st Contact Info) Description 04/22/2022 Transcribed Document [facility] [place] [address] [place] [address] ProviderHaroldo MD [address] [place] [address] Social History Tobacco Use Types [...] Do you speak a language other than Spanish at [facility]? Yes 10/30/2024 Do you want help [...] Conversion Note - Historical Provider, - 04/22/2022 10:53 AM CDT CR Chest 1 Vw Portable Ordered: 04/22/2022 Auth (Verified) Reason for Exam: syncope 04/22/2022 10:30 04/22/2022 10:53 (ANISA CRAVEN) No further action required documented in this encounter Plan of Treatment Not on file documented as of this encounter Visit Diagnoses Not on filedocumented in this encounter Care Teams Telegraph Repeater Mechanic Relationship Specialty Start Date End Date Marielos Amaral, KAYE [address] [place] [address] PCP - General Nurse Practitioner 08/18/23 documented as of this encounter
--- OUTSIDE RECORDS SUMMARY | 2025-05-14 20:33 | XMS_ITS | Encounter Summary ---
Author Organization [employer] ([place], [place], [place], [place]) Address [address] [place] [address] Care Team Providers Care Truck Unloader Name Role Phone Munir Marielos RESTREPO Primary Care Provider [phone] Encounter Details Date Type Department Care Team (Late st Contact Info) Description 04/22/2022 Transcribed Document [facility] [place] Family Medicine [address] [place] [address] ProviderHaroldo MD [address] [place] [address] Social History Tobacco Use Types [...] Do you speak a language other than Micronesian at [facility]? Yes 10/30/2024 Do you [...] Conversion Note - Historical Provider, - 04/22/2022 1:17 PM CDT Swallow Evaluation Entered On: 04/22/2022 14:34 EDT Performed On: 04/22/2022 14:25 EDT by TOVA LOPEZ, RAMONA General Information Visit Type, WAFFLE MACHINE OPERATOR : Initial evaluation Patient Orders : Speech Language Pathology Evaluation and Treatment -111 Start: 04/22/22 14:23:00 EDT, Routine, For Speech Language Cognitive Eval and Treat - ASHLEY GALARZA PA Speech Language Pathology Swallow Evaluation and Treatment - Start: 04/22/22 13:17:00 EDT, Routine, For Swallow Eval and Treat -111 ASHLEY GALARZA PA Admission Date : Admission Date/Time: 04/22/22 12:30:00 Medical Chart Reviewed, WAFFLE MACHINE OPERATOR : Yes Personal Devices : Personal Devices No Devices Recorded Assistive Devices : Assistive Devices No Devices Recorded Active Diagnoses : 04/22/2022 12:00 Acute kidney failure, unspecified 04/22/2022 12:00 Cervicalgia 04/22/2022 12:00 Hypotension, unspecified 04/22/2022 12:00 Other symptoms and signs involving the musculoskeletal system 04/22/2022 12:00 Pain in right shoulder 04/22/2022 12:00 Paresthesia of skin 04/22/2022 12:00 Potential stroke 04/22/2022 12:00 Syncope and collapse 04/22/2022 12:00 Syncope/Near syncope Therapy Diagnosis, WAFFLE MACHINE OPERATOR : Pt presents without overt oropharyngeal patterns. Recommendations: 1. Regular/thin 2. Medication per RN 3. No further evaluation/tx for oropharyngeal dysphagia Previous Speech/Language Evaluations : 02/07/19- Communication evaluation s/p L frontal CVA- Intact speech/language skills Previous Swallow Precautions : 02/06/19- Bedside w/ recommendations for regular/thin 10/15/19- Bedside w/ recommendations for regular/thin Diet/Intake Prior to Current Admission : Regular/thin Diet/Intake During Current Admission : NPO Intubation Comment, WAFFLE MACHINE OPERATOR : n/a Vital Signs RTF : Vitals Temp BP Pulse RR SpO2 FIO2 Date Wt(kg) Wt(lb) 04/22 09:15 ---- 102/52 70 18 100 --- 04/22 85.0 187 24 Hr Tmax: No Data Available 36 Hr Tmax: No Data Available Vital Signs are the last 5 in the past 48 hours. Weights display the last 5 within 7 days. Initial Wt: 04/22 85.0 kg 187 lb Respiratory Assessment Comment : Room air TOVA LOPEZ SLP - 04/22/2022 14:25 EDT General Status Patient Received Status, WAFFLE MACHINE OPERATOR : Supine in bed Treatment Start Time, WAFFLE MACHINE OPERATOR : 04/22/2022 14:12 EDT Patient Left Status, WAFFLE MACHINE OPERATOR : Long sitting in bed RN/PCT Informed Comment, WAFFLE MACHINE OPERATOR : [id number] (5 minutes) Treatment End Time, WAFFLE MACHINE OPERATOR : 04/22/2022 14:25 EDT Treatment Time, WAFFLE MACHINE OPERATOR : 13 Minute(s) TOVA LOPEZ SLP - 04/22/2022 14:25 EDT Pain Assessment Pain Scaled Used : 0-10 Pain scale Pain Score Pre-Intervention : 0 TOVA LOPEZ SLP - 04/22/2022 14:25 EDT Image 1 - Images currently included in the form version of this document have not been included in the text rendition version of the form. Oral Mechanism Dysarthria : No Resonance Types : Appropriate Oral Mechanism for Daily Living : Intact WAFFLE MACHINE OPERATOR Cough : Strong Facial Appearance: : Symmetrical Labial Appearance : Symmetrical Labial Function : All function intact Dental/Orthodontia : Teeth, own Lingual Appearance : Symmetrical Lingual Function : All function intact TOVA LOPEZ SLP - 04/22/2022 14:25 EDT Bedside Swallow Swallow Outcome BS Swallow : Intact Head Control BS Swallow : Neutral head position Presentation Style BS Swallow : Self Swallow Position BS Swallow : Upright 90 degrees Trunk Control BS Swallow : Upright centered position Consistencies Trialed BS Swallow : Thin by straw, Pudding, Regular solids TOVA LOPEZ SLP - 04/22/2022 14:25 EDT Swallow Impressions Impressions, BS Swallow : No evidence of dysphagia present Swallowing Outcome Measures : Functional Oral Intake Scale (FOIS) Functional Oral Intake Scale (FOIS) : Level VII Bedside Swallow Overall Impressions : Pt admitted w/ c/o RUE and RLE weakness and syncope. Per pt report, extremity weakness has been happening for 2-3 weeks. PMHx is signficant for CAD s/p CABG x4, CVA, Afib, DM, GERD, SEFERINO, HLD, and HTN. WAFFLE MACHINE OPERATOR consulted for bedside dysphagia evaluation. Today, pt is alert and oriented x4. He denies difficulty w/ speech and swallowing. No overt speech/language deficits. Oral skills appear functional for swallowing. No overt pharyngeal patterns appreciated with any trialed consistency. Pt appears safe for a regular diet and thin liquids. Medication per RN. No further evaluation/tx for oropharyngeal dysphagia is indicated at this time. Diet orders have been placed. WAFFLE MACHINE OPERATOR will follow up w/ a definitive neuro dx warranting further communication evaluation. TOVA LOPEZ SLP - 04/22/2022 14:25 EDT Swallow Recommendations Recommended Diet Type, SwRec : Regular Recommended Liquid Diet, SwRec : Thin Feeding Presentation Style, SwRec : No restrictions Swallow Position, SwRec : Upright 90 degrees Comp Strategies/Sw Precautions, SwRec : Upright for meals Supervision Level w/Meals, SwRec : Independent, complete Recommended Med Present, SwRec : As per nursing TOVA LOPEZ SLP - 04/22/2022 14:25 EDT Therapy Indication Assessment WAFFLE MACHINE OPERATOR Indicated : No WAFFLE MACHINE OPERATOR Not Indicated : At prior level of function WAFFLE MACHINE OPERATOR Interdisciplinary Consultation Needs : No WAFFLE MACHINE OPERATOR Rehabilitation Potential : At prior level of function TOVA LOPEZ SLP - 04/22/2022 14:25 EDT Education Barriers To Learning : None evident Individuals Taught : Patient, Spouse Readiness to Learn : Cooperative Readiness to Learn : Explanation Education Comment : n/a TOVA LOPEZ SLP - 04/22/2022 14:25 EDT WAFFLE MACHINE OPERATOR Education Assessment Grid 1 Diet Recommendation : Verbalizes understanding Evaluation Results : Verbalizes understanding TOVA LOPEZ SLP - 04/22/2022 14:[address] [place] WAFFLE MACHINE OPERATOR Charges Evaluation Swallowing Function : 1 TOVA LOPEZ SLP - 04/22/2022 14:25 EDT Anticipated Discharge Needs, WAFFLE MACHINE OPERATOR Anticipated Discharge to : Home, independently Recommend Continued Therapy at Discharge : No TOVA LOPEZ SLP - 04/22/2022 14:25 EDT Electronically signed by [facility] Conversion Drying Machine Operator Cerner at 01/24/2023 10:34 AM CDT documented in this encounter Plan of Treatment Not on file documented as of this encounter Visit Diagnoses Not on filedocumented in this encounter Care Teams Truck Unloader Relationship Specialty Start Date End Date Marielos Amaral, KAYE [address] [phone] PCP - General Nurse Practitioner 08/18/23 documented as of this encounter
--- OUTSIDE RECORDS SUMMARY | 2025-05-14 20:33 | XMS_ITS | Encounter Summary ---
Author Organization [employer] ([place], [place], [place], [place]) Address [address] [place] [address] Care Team Providers Care Certified Phlebotomy Technician Name Role Phone Marielos Amaral APRN Primary Care Provider Encounter Details Date Type Department Care Team (Late st Contact Info) Description 02/09/2019 Transcribed Document [facility] Radiology [address] [id number] Fidencio Tolliver MD [address] [place] [address] [address] [place] [address] Social History Tobacco Use Types Packs/Day Years Used Date Smoking Tobacco: Never Assessed Sex and Gender Information Value Date Recorded Sex Assigned at Not on file Legal Sex Male 3:45 PM CDT Gender Identity Not on file Sexual Orientation Not on file documented as of this encounter Miscellaneous Notes * Cerner Conversion Note - Fidencio Tolliver MD - 02/09/2019 12:23 PM EDT Patient: ZACKARY ANTOINE Age: 68 years Sex: Male : 1950 Associated Diagnoses: None Author: FIDENCIO TOLLIVER MD-INT Subjective PCP: Dr. Axel Hamlin DOA: 02/05/2019 DOD: 02/09/2019 HPI: Admitted with right sided weakness and uncontrolled movements with with a known history of coronary artery disease and multiple risk factors. CODE STATUS: Full code CONSULTS: [facility] cardiology WORKUP / PROCEDURES: CT Head WO (02/05/2019 20:29) Result: STUDY: CT Head without contrast.CLINICAL HISTORY: Loss of balanceFINDINGS: Multiple contiguous transaxial slices through the head wereobtained without the intravenous administration of contrast with coronalreformatted images. This study was performed with techniques to keepradiation doses as low as reasonably achievable, (ALARA). Individualizeddose reduction techniques using automated exposure control or adjustmentof mA and/or kV according to the patient size were employed.There is age appropriate cortical atrophy with associated ventricularenlargement without acute infarct, hemorrhage or mass effect. Periventricular white matter small vessel disease is present. Intracranial vessels are calcified and ectatic. There is mucosalthickening of the maxillary sinuses with a right maxillary air-fluidlevel. The calvarium is intact.IMPRESSION: 1. No acute intracranial abnormality. If concern persists, recommendMRI.2. Atrophy with chronic microvascular ischemia3. Sinusitis CT Brain Perfusion (02/05/2019 23:22) Result: CT BRAIN PERFUSIONHISTORY: Symptoms of CVA, unsteady gait. Right arm weakness.Technique: Axial CT of the head, without and with IV contrastadministration under CT perfusion protocol. Numerous post perfusionbrain mapping images were demonstrated to assess various perfusionparameters.FINDINGS: Blood flow mapping shows no perfusion abnormalities.Specifically there is no evidence of acute large vessel occlusiveischemic-related findings.IMPRESSION: No evidence of acute ischemia. This study was performed using dose reduction techniques to achieveradiation exposure as low as reasonably achievable (ALARA) CTA Head (02/05/2019 23:22) Result: CTA HEADHISTORY: Altered gait, symptoms of CVA.COMPARISON: NoneTECHNIQUE: Thin section axial CT with IV contrast supplemented withmultiplanar reconstruction under CT Angiogram protocol. 3 Dreconstructions were performed on a separate workstation.FINDINGS: Moderate calcified plaque disease is seen of the cavernousICAs. The central ACAs and MCAs are widely patent.Dolichoectasia is seen of the basilar artery without evidence ofsignificant stenosis. There is approximately 50% stenosis of theproximal basilar artery. building appraiser show mild stenosis proximally. IMPRESSION: 1. 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 Anterior circulation intact.3. 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 This study was performed using dose reduction techniques to achieveradiation exposure as low as reasonably achievable (ALARA) CTA Neck (02/05/2019 23:22) Result: CTA CAROTIDHISTORY: Symptoms of CVA, ; Altered Gait COMPARISON: NoneTECHNIQUE: Thin section axial CT with IV contrast supplemented withmultiplanar reconstruction under CT Angiogram protocol. 3 Dreconstructions were performed on a separate workstation.NASCET criteria and technique was utilized during interpretation.FINDINGS:Aortic arch: Arch shows no significant narrowing. Great vessel originsare widely patent. Right carotid: Mild plaque disease is present. There is no significantstenosis.Left carotid: Moderate calcified plaque disease is seen at the carotidbifurcation extending into the right ICA origin. This causes stenosis upto 20-30%, not considered hemodynamically significant.Vertebrals: Left vertebral artery is dominant. No significant stenosisis present. IMPRESSION: No evidence of cervical carotid dissection or significantstenosis. This study was performed using dose reduction techniques to achieveradiation exposure as low as reasonably achievable (ALARA) MRI Brain WO (02/06/2019 12:11) Result: MR BRAIN, WITHOUT AND WITH CONTRASTHISTORY: Symptoms of CVA. Right arm weakness.TECHNIQUE: Multiplanar imaging was performed of the brain with andwithout Gadolinium infusion.FINDINGS: Diffusion sequences show multifocal small areas of restricteddiffusion in the left frontal vertex near the motor cortex involvingcortex and subcortical white matter. Appearance is compatible with acutenonhemorrhagic infarct.Periventricular white matter signal changes are present. These arelikely due to advanced chronic microvascular change. Moderate atrophy isnoted. There is no evidence of mass or hemorrhage. No extra-axialabnormal findings are identified. The ventricles and cisterns appearnormal. No abnormal enhancing lesions are identified on the post infusionimages.IMPRESSION: 1. Small areas of infarct involving left frontal vertex cortex and whitematter near the motor strip.2. No hemorrhage.3. Advanced chronic microvascular changes. 2-D-ECHO: Normal sized left ventricle. Moderate left ventricular hypertrophy. Visually estimated ejection fraction 40% +/- 5%. Moderate left ventricular systolic dysfunction. Abnormal diastolic function. No hemodynamically significant valvular heart disease. No masses or thrombi are seen. ECHO WITH BUBBLE STUDY: Impression: Limited study to perform Bubble Study. - Negative for intracardiac shunt. CAROTID DOPPLER: RIGHT: < 20% stenosis of the prox ICA. Normal antegrade vertebral flow. No evidence of subclavian steal. LEFT: < 50% (non flow restricting) stenosis of the internal carotid artery. Normal antegrade vertebral flow. No evidence of subclavian steal. HOSPITAL FOLLOWUP: 02/06 Patient is awake and alert, seen and examined, chart reviewed, discussed with nursing staff. Patient complaining of some numbness of right upper extremity. His speech seems to be intact. No dyspnea, no fever, no chest pain. 02/07 Patient is resting in bed, no chest pain, no resting dyspnea. Afebrile. His speech is normal but still complaining of right upper extremity weakness and difficulty in walking with some gait disturbances. Neurology and cardiology input noted. 02/08 No new complaints, ambulating and drooling but feeling wobbly. No chest pain and no shortness of breath, afebrile. 02/09 Patient is doing much better, no new complaints. Afebrile. Weakness improving. Cleared by cardiology and neurology for discharge. Discussed with the patient, and nursing staff and transplant case manager today. Health Status Allergies: Allergic Reactions (Selected) Severity Not Documented Amoxicillin- No reactions were documented. Mucinex- No reactions were documented. Current medications: (Selected) Inpatient Medications Ordered Colace: 100 mg, Oral, BID Eliquis: 5 mg, Oral, [id number] Flomax: 0.4 mg, Oral, Daily MiraLax: 17 Gram, Oral, Daily, PRN: Constipation Normal Saline Flush: 10 mL, IV Push, Q12H Normal Saline Flush: 10 mL, IV Push, See Comment, PRN: IV Use Pepcid: 20 mg, IV Push, BID Sodium Chloride 0.9% intravenous solution 1,000 mL: 75 mL/Hr, IntraVENous Toprol-XL: 25 mg, Oral, Daily Tylenol: 650 mg, Oral, Q4H, PRN: Pain (Mild 1-3) Zofran: 4 mg, IV Push, Q4H, PRN: Nausea alogliptin: 25 mg, Oral, Daily amiodarone: 200 mg, Oral, Daily aspirin: 325 mg, Oral, Daily atorvastatin: 40 mg, Oral, At Bedtime insulin lispro sliding scale: Scale B:, SubCutaneous, AC and at Bedtime lisinopril: 10 mg, Oral, Daily metFORMIN: 1,000 mg, Oral, BID Documented Medications Documented Align 4 mg oral capsule: 1 Cap, Oral, Daily, 28 Cap, 0 Refill(s) Flomax 0.4 mg oral capsule: [...] meal, 30 Cap, 0 Refill(s), Home Medications (12) Active Align 4 mg oral capsule 4 mg = 1 Cap, Oral, Daily aspirin 81 mg oral delayed release tablet 81 mg = 1 Tab, Oral, Daily atorvastatin 40 mg oral tablet 40 mg = 1 Tab, Oral, At Bedtime Flomax 0.4 mg oral capsule 0.4 mg [...] 40 mg = 1 Cap, Oral, Daily Vitamin B12 1000 mcg oral tablet 1,000 mcg = 1 Tab, Oral, Daily Vitamin D3 1000 intl units oral tablet 1,000 Int Units = 1 Tab, Oral, Daily Problem list: Active Problems (13) Angina Coronary artery disease Diabetes mellitus type II Enlarged prostate GERD - Gastro-esophageal reflux disease Heart failure Heart murmur History of obstructive sleep apnea Hyperlipidemia Hypertension Impaired vision Migraine Stented coronary artery Objective VS/Measurements Vitals Signs (last 24 hrs) Last Charted Minimum Maximum Temp 97.8 (FEBRUARY 09 08:22) 97.8 (FEBRUARY 09 08:22) 98.2 (FEBRUARY 08 12:00) Apical HR 73 (FEBRUARY 09 08:26) 73 (FEBRUARY 09 08:26) 73 (FEBRUARY 09 08:26) Mon HR 73 (FEBRUARY 09 08:22) 73 (FEBRUARY 09 08:22) 84 (FEBRUARY 08 22:48) Resp Rate 14 (FEBRUARY 09 08:22) 14 (FEBRUARY 09 08:22) 16 (FEBRUARY 08 12:00) SBP H 145 (FEBRUARY 09 08:22) 130 (FEBRUARY 08 22:48) H 153 (FEBRUARY 08 12:00) DBP 74 (FEBRUARY 09 08:22) 72 (FEBRUARY 08 22:48) H 95 (FEBRUARY 08 15:32) MAP 94 (FEBRUARY 09 08:22) 87 (FEBRUARY 08 22:48) 120 (FEBRUARY 08 15:32) SpO2 97 (FEBRUARY 09 08:22) 96 (FEBRUARY 08 15:32) 97 (FEBRUARY 08 12:00) General: Alert and oriented, No acute distress. Eye: Normal conjunctiva. HENT: Oral mucosa is moist. Respiratory: Lungs are clear to auscultation, Respirations are non-labored. Cardiovascular: Normal rate, Regular rhythm. Gastrointestinal: Soft, Non-tender, Normal bowel sounds. Musculoskeletal: Normal range of motion. Integumentary: Warm. Neurologic: Alert, Oriented, Right upper extremity numbness and weakness - improving. Psychiatric: Cooperative. Results Review No Radiology Results FoundNo qualifying data available Impression and Plan Assessment and Plan: Diagnosis. DISCHARGE DIAGNOSIS: Acute left frontal CVA with right upper extremity numbness and weakness. - Clinically improving. Ongoing PT and OT. Paroxysmal atrial fibrillation currently controlled rate in sinus rhythm. Evaluated by cardiology. Started on anticoagulation and amiodarone.. Coronary artery disease with this history of CABG and previous coronary stents Type 2 diabetes, uncontrolled continue with current treatment and follow with PCP closely. Essential hypertension / Hyperlipidemia / Hypothyroid BPH / migraine DC INSTRUCTIONS: 1- DC home today. 2- Outpatient PT and OT arrangements. 3- Follow with neurology and cardiology instructions. 4- Follow with PCP in 1 week or as needed. Discharge Medications (13) Active amiodarone 200 mg oral tablet 200 mg = 1 Tab, Oral, Daily - new per cardiology. aspirin 81 mg oral delayed release tablet 81 mg = 1 Tab, Oral, Daily atorvastatin 40 mg oral tablet 40 mg = 1 Tab, Oral, At Bedtime Eliquis 5 mg oral tablet 5 mg = 1 Tab, Oral, [id number] - new per cardiology and neurology. Flomax 0.4 mg oral capsule 0.4 mg = 1 Cap, Oral, Daily glimepiride 4 mg oral tablet 4 mg = 1 Tab, Oral, BID Januvia 100 mg oral tablet 100 mg = 1 Tab, Oral, Daily lisinopril 10 mg oral tablet 10 mg = 1 Tab, Oral, Daily - new dose. metFORMIN 1000 mg oral tablet 1,000 mg = 1 Tab, Oral, BID omeprazole 40 mg oral delayed release capsule 40 mg = 1 Cap, Oral, Daily Toprol-XL 25 mg oral tablet, extended release 25 mg = 1 Tab, Oral, Daily - new dose. Vitamin B12 1000 mcg oral tablet 1,000 mcg = 1 Tab, Oral, Daily Vitamin D3 1000 intl units oral tablet 1,000 Int Units = 1 Tab, Oral, Daily DC time: 40 minutes. documented in this encounter Plan of Treatment Not on file documented as of this encounter Visit Diagnoses Not on filedocumented in this encounter Care Teams Certified Phlebotomy Technician Relationship Specialty Start Date End Date Marielos Amaral APRN [address] [address] PCP - General Nurse Practitioner 08/18/23 documented as of this encounter
--- OUTSIDE RECORDS SUMMARY | 2025-05-14 20:33 | XMS_ITS | Encounter Summary ---
Author Organization [employer] ([place], [place], [place], [place]) Address [address] [place] [address] Care Team Providers Care Building Contractor Name Role Phone Marielos Amaral KAYE Primary Care Provider Encounter Details Date Type Department Care Team (Late st Contact Info) Description 02/09/2019 Transcribed Document [facility] [place] Family Medicine [address] [place] [address] ProviderHaroldo MD [address] [place] [address] Social History Tobacco Use Types Packs/Day Years Used Date Smoking Tobacco: Never Assessed Sex and Gender Information Value Date Recorded Sex Assigned at Not on file Legal Sex Male 3:45 PM CDT Gender Identity Not on file Sexual Orientation Not on file documented as of this encounter Miscellaneous Notes * [employer]ner Conversion Note - Haroldo ProviderMD - 02/09/2019 9:09 AM CDT UM Authorization Entered On: 02/09/2019 9:10 EDT Performed On: 02/09/2019 9:09 EDT by Mary Haynes Rn-Utilization Review Primary Insurance Authorization Authorization and Policy Numbers : Insurance 1 Health Plan: [employer] Policy Number: [id number] Authorization Number: PENDING IP Insurance Primary Name : [employer] Choice Authorization Status-Primary : Notification only Auth/Referral Contact Name-Primary : Wenceslao Curran Authorization Number-Primary : [id number] Authorized Service Begin Date-Primary : 02/05/2019 EDT Observation Authorization Nbr-Primary : [id number] submitted for inpatient Historical Authorization Comments-Primary : Comment 1: inpt auth is pending per [employer] trans id# [id number] (DIONE REY, Filter Tank Tender 02/08/2019 09:43) Comment 2: setup case for IP on [employer]ity. faxed clinicals via cerner. (GEGE JUÁREZ RN 02/07/2019 11:56) Comment 3: setup on [employer]ity obs approved. (GEGE JUÁREZ RN 02/06/2019 08:52) Mary Haynes Rn-Utilization Review - 02/09/2019 9:09 EDT documented in this encounter Plan of Treatment Not on file documented as of this encounter Visit Diagnoses Not on filedocumented in this encounter Care Teams Building Contractor Relationship Specialty Start Date End Date Marielos Amaral, SOCIAL WORKER MASTERS [address] [phone] PCP - General Nurse Practitioner 08/18/23 documented as of this encounter
--- OUTSIDE RECORDS SUMMARY | 2025-05-14 20:33 | XMS_ITS | Encounter Summary ---
Author Organization [employer] ([place], [place], [place], [place]) Address [address] [place] [address] Care Team Providers Care Tongue Stitcher Name Role Phone Munir Marielos RESTREPO Primary Care Provider Encounter Details Date Type Department Care Team (Late st Contact Info) Description 04/22/2022 Transcribed Document [facility] [place] Family Medicine [address] [place] [address] ProviderHaroldo MD [address] [place] [address] Social History Tobacco Use Types [...] Do you speak a language other than Cuban at [facility]? Yes 10/30/2024 Do you want help [...] Conversion Note - Historical Provider, - 04/22/2022 2:08 PM CDT Pain Assessment Entered On: 04/25/2022 5:06 EDT Performed On: 04/24/2022 23:05 EDT by Lucille Garner RN-PATIENT CARE BEDSIDE NON-EXEMPT 2 Intervention Information: acetaminophen Performed by Lucille Garner RN-PATIENT CARE BEDSIDE NON-EXEMPT 2 on 04/24/2022 22:05:00 EDT acetaminophen,650mg Oral,Pain (Mild 1-3) Pain Assessment Pain Assessment : Follow-up assessment Pain Scale Goal : 3 Pain Scl Goal Comment : sleeping Lucille Garner RN-PATIENT CARE BEDSIDE NON-EXEMPT 2 - 04/25/2022 5:06 EDT documented in this encounter Plan of Treatment Not on file documented as of this encounter Visit Diagnoses Not on filedocumented in this encounter Care Teams Tongue Stitcher Relationship Specialty Start Date End Date Marielos Amaral, STRUCTURAL DRAFTSMAN [address] [address] PCP - General Nurse Practitioner 08/18/23 documented as of this encounter
--- OUTSIDE RECORDS SUMMARY | 2025-05-14 20:33 | XMS_ITS | Encounter Summary ---
Author Organization [employer] ([place], [place], [place], [place]) Address [address] [place] [address] Care Team Providers Care Brand Marketing Coordinator Name Role Phone Munir Marielos RESTREPO Primary Care Provider Encounter Details Date Type Department Care Team (Late st Contact Info) Description 04/22/2022 Transcribed Document [facility] [place] [address] [place] [address] ProviderHaroldo MD [address] [place] [address] Social History Tobacco Use Types [...] Do you speak a language other than Malaysian at [facility]? Yes 10/30/2024 Do you want help [...] Conversion Note - Historical Provider, - 04/22/2022 9:49 PM CDT ED Event Note Entered On: 04/22/2022 21:49 EDT Performed On: 04/22/2022 21:49 EDT by Tyrel Herbert RN-PATIENT CARE BEDSIDE NON-EXEMPT ED Event Note ED Event Date/Time : 04/22/2022 21:49 EDT ED Description of Event : report given to LUIS Owusu in 5A Tyrel Herbert RN-PATIENT CARE BEDSIDE NON-EXEMPT - 04/22/2022 21:49 EDT documented in this encounter Plan of Treatment Not on file documented as of this encounter Visit Diagnoses Not on filedocumented in this encounter Care Teams Brand Marketing Coordinator Relationship Specialty Start Date End Date Marielos Amaral, CLARK DRIVER [address] [place] [address] PCP - General Nurse Practitioner 08/18/23 documented as of this encounter
--- OUTSIDE RECORDS SUMMARY | 2025-05-14 20:33 | XMS_ITS | Encounter Summary ---
Author Organization [employer] ([place], [place], [place], [place]) Address [address] [place] [address] Care Team Providers Care Psychologist Personnel Name Role Phone Munir Marielos RESTREPO Primary Care Provider [phone] Encounter Details Date Type Department Care Team (Late st Contact Info) Description 04/22/2022 Transcribed Document [facility] [place] [address] [place] [address] ProviderHaroldo MD [address] [place] [address] Social History Tobacco Use Types [...] Do you speak a language other than [place] at [facility]? Yes 10/30/2024 Do you want help with [...] Conversion Note - Historical Provider, - 04/22/2022 1:38 PM CDT Evaluation, Physical Therapy Entered On: 04/23/2022 13:58 EDT Performed On: 04/23/2022 10:00 EDT by USHA REICH, PT General Information, PT Visit Type, PT : Initial evaluation Patient Orders : Order Date Order Ordering 04/22/2022 13:38 PT Evaluation and Treatment Ordered By: ASHLEY GALARZA PA Active Diagnoses : 04/22/2022 12:00 Acute kidney failure, unspecified 04/22/2022 12:00 Cervicalgia 04/22/2022 12:00 Hypotension, unspecified 04/22/2022 12:00 Other symptoms and signs involving the musculoskeletal system 04/22/2022 12:00 Pain in right shoulder 04/22/2022 12:00 Paresthesia of skin 04/22/2022 12:00 Potential stroke 04/22/2022 12:00 Syncope and collapse 04/22/2022 12:00 Syncope/Near syncope Therapy Diagnosis, PT : decreased endurance Onset of Problem, PT : 04/22/2022 EDT Admission Date : 04/22/2022 12:30 Co-treated by, PT : Occupational Therapist Personal Devices : Personal Devices No Devices Recorded Assistive Devices : Assistive Devices No Devices Recorded Precautions in Place : Fall prevention measures General Information Comment, PT : dx: syncopal episode, hypotensive, acute kidney injury hx: CABG & stents, afib, diabetes USHA REICH, PT - 04/23/2022 13:50 EDT General Status Patient Received Status : Supine in bed Treatment Start Time : 04/23/2022 9:40 EDT Patient Left Status : Up in chair, RN/PCT informed, Family/Visitors at bedside, All needs met and within reach RN/PCT Informed Comment : LUIS Shah was informed Treatment End Time : 04/23/2022 10:00 EDT Treatment Time : 20 Minute(s) (Comment: time spent chart reviewing, collaborating with nsg, and clinical reasoning [USHA REICH PT - 04/23/2022 13:50 EDT] ) Actual Treatment Time : 25 Minute(s) USHA REICH PT - 04/23/2022 13:50 EDT History and Environment Living Situation, Therapy : Home Patient Lives With : Spouse Persons Assisting Patient at Home : Spouse Persons Providing Information : Patient Home Equipment Therapy, PT : Cane, Shower Equipment, Walker Home Setup : Basement, One story Bedroom Location : Main level Bathroom #1 Location : Main level Stairs : Yes Stair Location(s) : Outside Outside Stairs, Number of Steps : 4 Railing Outside : Yes Outside Railing Position : Bilateral USHA REICH PT - 04/23/2022 13:50 EDT Prior Level of Function PT GRID Prior LOF Ambulation, Household : Independent Prior LOF Ambulation, Community : Independent Prior LOF Bed Mobility : Independent Prior LOF Toileting : Independent Prior LOF Transfer : Independent USHA REICH PT - 04/23/2022 13:50 EDT Prior LOF Assist with ADL Comment : Pt reports being independent and amb with a cane USHA REICH PT - 04/23/2022 13:50 EDT Intervention Summary Therapist Assessment During Intervention : Pt's BP was 90/51 while sitting EOB and 82/45 while standing USHA REICH PT - 04/23/2022 13:50 EDT Functional Mobility Mobility Grid Supine to Sit : Rehab Minimal assistance Sit to Stand : Supervision/set-up Bed to Chair : Rehab Minimal assistance USHA REICH PT - 04/23/2022 13:50 EDT Sit to Stand Device : Belt, gait, Walker, front wheel Bed to Chair Device : Belt, gait, Walker, front wheel USHA REICH PT - 04/23/2022 13:50 EDT Gait Training/Assessment, PT Weight Bearing Status Maintained : Yes Weight Bearing Status : Full Gait Assistance Level : Assist, minimal Walking Distance : 20' Ambulatory Devices : Gait belt, Walker, front wheel USHA REICH PT - 04/23/2022 13:50 EDT Cognition Assessment, PT Orientation : Oriented x 4 Safety/Judgment Comment : good Follows Basic Command Assessment : yes Attention Assessment : Present USHA REICH PT - 04/23/2022 13:50 EDT Edu Topics Physical Therapy Education Grid Balance Training : Needs further teaching Bed Mobility Training : Needs further teaching Gait Training : Needs further teaching Role of Physical Therapy : Verbalizes understanding Therapeutic Exercises : Needs further teaching Transfer Training : Needs further teaching USHA REICH PT - 04/23/2022 13:50 EDT Indication Assesessment, PT Physical Therapy Indicated : Yes PT Problem List : Impaired, activities daily living, Impaired, endurance tolerance, Impaired, gait, Impaired, standing balance, Impaired, strength, Impaired, transfers Potential Barriers To Therapy : None evident Rehabilitation Potential : Good USHA REICH, PT - 04/23/2022 13:50 EDT Plan of Care, PT PT Tx Plan/Goals Established w Patient : Yes PT Frequency Rehab : Five days per week PT Duration Rehab : Fourteen days PT Treatments Planned : Balance training, Bed mobility training, Gait training, Safety education, Stair training, Therapeutic exercises, Transfer training USHA REICH, PT - 04/23/2022 13:50 EDT Jail Goals Mobility/Bed Mobility LTG PT Grid Goal #1 Goal #2 Activity : Supine to sit Sit to stand Assist : Independent, modified Independent, modified Equipment : Belt, gait, Walker, front wheel Date to Meet : 05/07/2022 EDT 05/07/2022 EDT Goal Status : Intial Goal Intial Goal USHA REICH, PT - 04/23/2022 13:50 EDT USHA REICH, PT - 04/23/2022 13:50 EDT Transfer LTG Grid Goal #1 Destination : Chair, with arms Type : Stand Pivot Sit Assist : Independent, modified Equipment : Belt, gait, Walker, front wheel Date to Meet : 05/07/2022 EDT Goal Status : Intial Goal USHA REICH, PT - 04/23/2022 13:50 EDT Ambulation LTG Grid Goal #1 Device : Walker, front wheel Distance : 150' Assist : Independent, modified Date to Meet : 05/07/2022 EDT Goal Status : Intial Goal USHA REICH PT - 04/23/2022 13:50 EDT Treatment Note Subjective Comment : Pt agreed to therapy and sitting up in chair Patient's Response to Treatment : Pt's blood pressure was taken when pt was sitting EOB. Pt's blood pressure was 90/51. Pt's blood pressure was taken again once standing. Pt's blood pressure was 82/45 Additional Objective Information : Pt was supine in bed when therapy arrived. Pt sat EOB with Luis Manuel. Pt stood and amb to the door and back to the chair with rwx and Luis Manuel. Pt was left up in chair with all needs met and within reach. Assessment : Did not amb further with pt due to blood pressure. Nsg was notified of pt's BP. Pt had no LOB while amb but required navigating small room with rwx. Plan for Treatment : Continue therapy to improve endurance and strength USHA REICH, PT - 04/23/2022 15:19 EDT Pain Assessment Pain Scaled Used : 0-10 Pain scale Pain Score Pre-Intervention : 0 Pain Score Post-Intervention. : 0 USHA REICH PT - 04/23/2022 15:19 EDT Image 1 - Images currently included in the form version of this document have not been included in the text rendition version of the form. Anticipated Discharge Needs, OT/PT Anticipated Discharge to : Unable to assess at this time USHA REICH PT - 04/23/2022 15:19 EDT [place] PT Charges PT Ther Activities Ea 15 Min : 1 PT Eval Low Complexity : 1 USHA REICH PT - 04/23/2022 15:19 EDT Electronically signed by Brittany [facility] Conversion Conference Assistant Cerner at 01/24/2023 10:41 AM CDT documented in this encounter Plan of Treatment Not on file documented as of this encounter Visit Diagnoses Not on filedocumented in this encounter Care Teams Psychologist Personnel Relationship Specialty Start Date End Date Marielos Amaral APRN [address] [address] PCP - General Nurse Practitioner 08/18/23 documented as of this encounter
--- OUTSIDE RECORDS SUMMARY | 2025-05-14 20:33 | XMS_ITS | Encounter Summary ---
Author Organization [employer] ([place], [place], [place], [place]) Address [address] [place] [address] Care Team Providers Care Illustrator Set Name Role Phone Marielos Amaral KAYE Primary Care Provider Encounter Details Date Type Department Care Team (Late st Contact Info) Description 02/09/2019 Transcribed Document [facility] [place] Medicine [address] [place] [address] ProviderHaroldo MD [address] [place] [address] Social History Tobacco Use Types Packs/Day Years Used Date Smoking Tobacco: Never Assessed Sex and Gender Information Value Date Recorded Sex Assigned at Not on file Legal Sex Male 3:45 PM CDT Gender Identity Not on file Sexual Orientation Not on file documented as of this encounter Miscellaneous Notes * [employer] Conversion Note - Haroldo ProviderMD - 02/09/2019 9:06 AM CDT UM Authorization Entered On: 02/09/2019 9:08 EDT Performed On: 02/09/2019 9:06 EDT by Mary Haynes Rn-Utilization Review Primary Insurance Authorization Authorization and Policy Numbers : Insurance 1 Health Plan: [employer] H[employer] Policy Number: [id number] Authorization Number: PENDING IP Insurance Primary Name : [employer] Choice Authorization Status-Primary : Notification only Auth/Referral Contact Name-Primary : Wenceslao Curran Authorization Number-Primary : [id number] Authorized Service Begin Date-Primary : 02/05/2019 EDT Observation Authorization Nbr-Primary : [id number] Historical Authorization Comments-Primary : Comment 1: inpt auth is pending per [employer]ity trans id# [id number] (DIONE REY, Dietary Assistant 02/08/2019 09:43) Comment 2: setup case for IP on [employer]ity. faxed clinicals via [employer]ner. (GEGE JUÁREZ RN 02/07/2019 11:56) Comment 3: setup on availity obs approved. (GEGE JUÁREZ RN 02/06/2019 08:52) Mary Haynes Rn-Utilization Review - 02/09/2019 9:06 EDT Electronically signed by Brittany [facility] Conversion Account Advisor Cerner at 01/24/2023 10:44 AM CDT documented in this encounter Plan of Treatment Not on file documented as of this encounter Visit Diagnoses Not on filedocumented in this encounter Care Teams Illustrator Set Relationship Specialty Start Date End Date Marielos Amaral, SERVICE PARTS DRIVER [address] [phone] PCP - General Nurse Practitioner 08/18/23 documented as of this encounter
--- OUTSIDE RECORDS SUMMARY | 2025-05-14 20:33 | XMS_ITS | Encounter Summary ---
Author Organization [employer] ([place], [place], [place], [place]) Address [address] [place] [address] Care Team Providers Care Stencil Maker Name Role Phone Munir Marielos RESTREPO Primary Care Provider Encounter Details Date Type Department Care Team (Late st Contact Info) Description 04/22/2022 Transcribed Document [facility] [place] [address] [place] [address] ProviderHaroldo MD [address] [place] [address] Social History Tobacco Use Types [...] Do you speak a language other than Russian at [facility]? Yes 10/30/2024 Do you [...] Conversion Note - Historical Provider, - 04/22/2022 11:07 AM CDT Pain Assessment Entered On: 04/22/2022 17:19 EDT Performed On: 04/22/2022 17:19 EDT by Shala Cole RN Intervention Information: morphine Performed by Shala Cole RN on 04/22/2022 11:29:00 EDT morphine,4mg IV Push,Peripheral Line 1 Pain Assessment Pain Assessment : Follow-up assessment Shala Cole RN - 04/22/2022 17:19 EDT Electronically signed by Brittany [facility] Conversion Test Deck Supervisor Cerner at 01/24/2023 10:28 AM CDT documented in this encounter Plan of Treatment Not on file documented as of this encounter Visit Diagnoses Not on filedocumented in this encounter Care Teams Stencil Maker Relationship Specialty Start Date End Date Marielos Amaral, KAYE [address] [phone] PCP - General Nurse Practitioner 08/18/23 documented as of this encounter
--- OUTSIDE RECORDS SUMMARY | 2025-05-14 20:33 | XMS_ITS | Encounter Summary ---
Author Organization [employer] ([place], [place], [place], [place]) Address [address] [place] [address] Care Team Providers Care Lean Specialist Name Role Phone Marielos Amaral KAYE Primary Care Provider Encounter Details Date Type Department Care Team (Late st Contact Info) Description 02/09/2019 Transcribed Document [facility] [place] [address] [place] [address] ProviderHaroldo MD [address] [place] [address] Social History Tobacco Use Types Packs/Day Years Used Date Smoking Tobacco: Never Assessed Sex and Gender Information Value Date Recorded Sex Assigned at Not on file Legal Sex Male 3:45 PM CDT Gender Identity Not on file Sexual Orientation Not on file documented as of this encounter Miscellaneous Notes * [employer] Conversion Note - Historical ProviderMD - 02/09/2019 4:00 AM CDT Height and Weight, Routine Entered On: 02/09/2019 7:22 EDT Performed On: 02/09/2019 4:00 EDT by Jessica Diez Care [facility] Unit Coord Height and Weight, Routine Routine Weight Source : Bed scale Routine Weight Entry Format : [place] Routine Weight, Pounds : 173 lb Routine Weight, Ounces : 8 oz Routine Weight Calculation : 78.86 kg Height Source : Stated Height Entry Format : [place] Height, Feet : 5 ft Height, Inches : 9 Inch Clinical Height : 175.26 cm Body Surface Area (BSA), Routine : 1.95 m2 Body Mass Index (BMI), Routine : 25.67 kg/m2 [facility] - 02/09/2019 7:21 EDT documented in this encounter Plan of Treatment Not on file documented as of this encounter Visit Diagnoses Not on filedocumented in this encounter Care Teams Lean Specialist Relationship Specialty Start Date End Date Marielos Amaral, KAYE [address] [address] PCP - General Nurse Practitioner 08/18/23 documented as of this encounter
--- OUTSIDE RECORDS SUMMARY | 2025-05-14 20:33 | XMS_ITS | Encounter Summary ---
Author Organization [employer] ([place], [place], [place], [place]) Address [address] [place] [address] Care Team Providers Care Curriculum And Assessment Director Name Role Phone Marielos Amaral APRN Primary Care Provider [phone] Encounter Details Date Type Department Care Team (Late st Contact Info) Description 04/14/2019 Transcribed Document [facility] [place] [address] [place] [address] ProviderHaroldo MD [address] [place] [address] Social History Tobacco Use Types Packs/Day Years Used Date Smoking Tobacco: Never Assessed Sex and Gender Information Value Date Recorded Sex Assigned at Not on file Legal Sex Male 3:45 PM CDT Gender Identity Not on file Sexual Orientation Not on file documented as of this encounter Miscellaneous Notes * [employer] Conversion Note - Haroldo ProviderMD - 04/14/2019 3:30 PM CDT [facility] PreOp Summary Primary Physician: PRINCESS DOCKERY MD-GAE Finalized Date/Time: 04/14/19 14:35:08 Pt. Name: ELINAZACKARY /Sex: 1950 Male Med Rec #: [id number] Physician: PRINCESS DOCKERY MD-GAE Financial #: [id number] Pt. Type: O Room/Bed: Admit/Disch: 04/14/19 14:02:00 - Institution: [facility] PreOp Case Times Entry 1 In Preop 04/14/19 14:14:00 Ready for Holding n/a Room Patient Ready for 04/14/19 14:34:00 Surgery Patient Out of Preop 04/14/19 14:34:00 Patient Out of n/a Holding Room Finalized By: MIKO GALLAGHER, RN Document Signatures Signed By: MIKO GALLAGHER RN 04/14/19 14:35 documented in this encounter Plan of Treatment Not on file documented as of this encounter Visit Diagnoses Not on filedocumented in this encounter Care Teams Curriculum And Assessment Director Relationship Specialty Start Date End Date Marielos Amaral, OUTREACH SPECIALIST [address] [phone] PCP - General Nurse Practitioner 08/18/23 documented as of this encounter
--- OUTSIDE RECORDS SUMMARY | 2025-05-14 20:33 | XMS_ITS | Encounter Summary ---
Author Organization [employer] ([place], [place], [place], [place]) Address [address] [place] [address] Care Team Providers Care Program Production Specialist Name Role Phone Marielos Amaral KAYE Primary Care Provider [phone] Encounter Details Date Type Department Care Team (Late st Contact Info) Description 02/09/2019 Transcribed Document [facility] [place] [address] [place] [address] ProviderHaroldo MD [address] [place] [address] Social History Tobacco Use Types Packs/Day Years Used Date Smoking Tobacco: Never Assessed Sex and Gender Information Value Date Recorded Sex Assigned at Not on file Legal Sex Male 3:45 PM CDT Gender Identity Not on file Sexual Orientation Not on file documented as of this encounter Miscellaneous Notes * [employer] Conversion Note - Haroldo ProviderMD - 02/09/2019 5:00 AM CDT Chart Check - Review Order Profile Entered On: 02/09/2019 4:50 EDT Performed On: 02/09/2019 5:00 EDT by Cara Chaudhary, RN Chart Check Powerplans Initiated/Discontinued as Appropriate : Yes All Active Orders Reviewed : Yes Cara Chaudhary, RN - 02/09/2019 4:50 EDT Electronically signed by Brittany [facility] Conversion Awning Hanger Cerner at 01/24/2023 10:29 AM CDT documented in this encounter Plan of Treatment Not on file documented as of this encounter Visit Diagnoses Not on filedocumented in this encounter Care Teams Program Production Specialist Relationship Specialty Start Date End Date Rosette Amarale, TAKER AWAY [address] [place] [address] PCP - General Nurse Practitioner 08/18/23 documented as of this encounter
--- OUTSIDE RECORDS SUMMARY | 2025-05-14 20:33 | XMS_ITS | Encounter Summary ---
Author Organization [employer] ([place], [place], [place], [place]) Address [address] [place] [address] Care Team Providers Care Stocking Inspector Name Role Phone Marielos Amaral KAYE Primary Care Provider [phone] Encounter Details Date Type Department Care Team (Late st Contact Info) Description 02/09/2019 Transcribed Document [facility] [place] [facility] [place] [address] ProviderHaroldo MD [address] [place] [address] Social History Tobacco Use Types Packs/Day Years Used Date Smoking Tobacco: Never Assessed Sex and Gender Information Value Date Recorded Sex Assigned at Not on file Legal Sex Male 3:45 PM CDT Gender Identity Not on file Sexual Orientation Not on file documented as of this encounter Miscellaneous Notes * [employer]ner Conversion Note - Haroldo ProviderMD - 02/09/2019 2:16 PM CDT Patient Education Materials Follows: Ischemic Stroke An ischemic stroke (cerebrovascular accident, or CVA) is the sudden of brain tissue that occurs when an area of the brain does not get enough oxygen. It is a medical emergency that must be treated right away. An ischemic stroke can cause permanent loss of brain function. This can cause problems with how different parts of your body function. What are the causes? This condition is caused by a decrease of oxygen supply to an area of the brain, which may be the result of: ??? A small blood clot (embolus) or a buildup of plaque in the blood vessels (atherosclerosis) that blocks blood flow in the brain. ??? An abnormal heart rhythm (atrial fibrillation). ??? A blocked or damaged artery in the head or neck. What increases the risk? Certain factors may make you more likely to develop this condition. Some of these factors are things that you can change, such as: ??? Obesity. ??? Smoking cigarettes. ??? Taking oral control, especially if you also use tobacco. ??? Physical inactivity. ??? Excessive alcohol use. ??? Use of illegal drugs, especially cocaine and methamphetamine. Other risk factors include: ??? High blood pressure (hypertension). ??? High cholesterol. ??? Diabetes mellitus. ??? Heart disease. ??? Being , , , or . ??? Being over age 60. ??? Family history of stroke. ??? Previous history of blood clots, stroke, or transient ischemic attack (TIA). ??? Sickle cell disease. ??? Being a woman with a history of preeclampsia. ??? Migraine headache. ??? Sleep apnea. ??? Irregular heartbeats, such as atrial fibrillation. ??? Chronic inflammatory diseases, such as rheumatoid arthritis or lupus. ??? Blood clotting disorders (hypercoagulable state). What are the signs or symptoms? Symptoms of this condition usually develop suddenly, or you may notice them after waking up from sleep. Symptoms may include sudden: ??? Weakness or numbness in your face, arm, or leg, especially on one side of your body. ??? Trouble walking or difficulty moving your arms or legs. ??? Loss of balance or coordination. ??? Confusion. ??? Slurred speech (dysarthria). ??? Trouble speaking, understanding speech, or both (aphasia). ??? Vision changes?such as double vision, blurred vision, or loss of vision?in?one or both eyes. ??? Dizziness. ??? Nausea and vomiting. ??? Severe headache with no known cause. The headache is often described as the worst headache ever experienced. If possible, make note of the exact time that you last felt like your normal self and what time your symptoms started. Tell your health care provider. If symptoms come and go, this could be a sign of a warning stroke, or TIA. Get help right away, even if you feel better. How is this diagnosed? This condition may be diagnosed based on: ??? Your symptoms, your medical history, and a physical exam. ??? CT scan of the brain. ??? MRI. ??? CT angiogram. This test uses a computer to take X-rays of your arteries. A dye may be injected into your blood to show the inside of your blood vessels more clearly. ??? MRI angiogram. This is a type of MRI that is used to evaluate the blood vessels. ??? Cerebral angiogram. This test uses X-rays and a dye to show the blood vessels in the brain and neck. You may need to see a health care provider who specializes in stroke care. A stroke specialist can be seen in person or through communication using telephone or television technology (telemedicine). Other tests may also be done to find the cause of the stroke, such as: ??? Electrocardiogram (ECG). ??? Continuous heart monitoring. ??? Echocardiogram. ??? Carotid ultrasound. ??? A scan of the brain circulation. ??? Blood tests. ??? Sleep study to check for sleep apnea. How is this treated? Treatment for this condition will depend on the duration, severity, and cause of your symptoms and on the area of the brain affected. It is very important to get treatment at the first sign of stroke symptoms. Some treatments work better if they are done within 3?6 hours of the onset of stroke symptoms. These initial treatments may include: ??? Aspirin. ??? Medicines to control blood pressure. ??? Medicine given by injection to dissolve the blood clot (thrombolytic). ??? Treatments given directly to the affected artery to remove or dissolve the blood clot. Other treatment options may include: ??? Oxygen. ??? IV fluids. ??? Medicines to thin the blood (anticoagulants orantiplatelets). ??? Procedures to increase blood flow. Medicines and changes to your diet may be used to help treat and manage risk factors for stroke, such as diabetes, high cholesterol, and high blood pressure. After a stroke, you may work with physical, speech, mental health, or occupational therapists to help you recover. Follow these instructions at home: Medicines ??? Take [id number] and prescription medicines only as told by your health care provider. ??? If you were told to take a medicine to thin your blood, such as aspirin or an anticoagulant, take it exactly as told by your health care provider. ? Taking too much blood-thinning medicine can cause bleeding. ? If you do not take enough blood-thinning medicine, you will not have the protection that you need against another stroke and other problems. ??? Understand the side effects of taking anticoagulant medicine. When taking this type of medicine, make sure you: ? Hold pressure over any cuts for longer than usual. ? Tell your dentist and other health care providers that you are taking anticoagulants before you have any procedures that may cause bleeding. ? Avoid activities that may cause trauma or injury. Eating and drinking ??? Follow instructions from your health care provider about diet. ??? Eat healthy foods. ??? If your ability to swallow was affected by the stroke, you may need to take steps to avoid choking, such as: ? Taking small bites when eating. ? Eating foods that are soft or pureed. Safety ??? Follow instructions from your health care team about physical activity. ??? Use a walker or cane as told by your health care provider. ??? Take steps to create a safe home environment in order to reduce the risk of falls. This may include: ? Having your home looked at by specialists. ? Installing grab bars in the bedroom and bathroom. ? Using safety equipment, such as raised toilets and a seat in the shower. General instructions ??? Do notuse any tobacco products, such as cigarettes, chewing tobacco, and e-cigarettes. If you need help quitting, ask your health care provider. ??? Limit alcohol intake to no more than 1 drink a day for non women and 2 drinks a day for men. One drink equals 12 oz of beer, 5 oz of wine, or 1? oz of hard liquor. ??? If you need help to stop using drugs or alcohol, ask your health care provider about a referral to a program or specialist. ??? Maintain an active and healthy lifestyle. Get regular exercise as told by your health care provider. ??? Keep all follow-up visits as told by your health care provider, including visits with all specialists on your health care team. This is important. How is this prevented? Your risk of another stroke can be decreased by managing high blood pressure, high cholesterol, diabetes, heart disease, sleep apnea, and obesity. It can also be decreased by quitting smoking, limiting alcohol, and staying physically active. Your health care provider will continue to work with you on measures to prevent short-term and long-term complications of stroke. Get help right away if: You have: ??? Sudden weakness or numbness in your face, arm, or leg, especially on one side of your body. ??? Sudden confusion. ??? Sudden trouble speaking, understanding, or both (aphasia). ??? Sudden trouble seeing with one or both eyes. ??? Sudden trouble walking or difficulty moving your arms or legs. ??? Sudden dizziness. ??? Sudden loss of balance or coordination. ??? Sudden, severe headache with no known cause. ??? A partial or total loss of consciousness. ??? A seizure. Any of these symptoms may represent a serious problem that is an emergency. Do not wait to see if the symptoms will go away. Get medical help right away. Call your local emergency services (911 in [place] Do not drive yourself to the hospital. This information is not intended to replace advice given to you by your health care provider. Make sure you discuss any questions you have with your health care provider. Document Released: 09/22/2006 Document Revised: 03/04/2017 Document Reviewed: 12/18/2016 [employer] Patient Education ? 2017 [employer] Weakness Weakness is a lack of strength. You may feel weak all over your body or just in one part of your body. Weakness can be serious. In some cases, you may need more medical tests. HOME CARE ??? Rest. ??? Eat a well-balanced diet. ??? Try to exercise every day. ??? Only take medicines as told by your doctor. GET HELP RIGHT AWAY IF: ??? You cannot do your normal daily activities. ??? You cannot walk up and down stairs, or you feel very tired when you do so. ??? You have shortness of breath or chest pain. ??? You have trouble moving parts of your body. ??? You have weakness in only one body part or on only one side of the body. ??? You have a fever. ??? You have trouble speaking or swallowing. ??? You cannot control when you pee (urinate) or poop (bowel movement). ??? You have black or bloody throw up (vomit) or poop. ??? Your weakness gets worse or spreads to other body parts. ??? You have new aches or pains. MAKE SURE YOU: ??? Understand these instructions. ??? Will watch your condition. ??? Will get help right away if you are not doing well or get worse. This information is not intended to replace advice given to you by your health care provider. Make sure you discuss any questions you have with your health care provider. Document Released: 09/04/2009 Document Revised: 03/23/2013 Document Reviewed: 07/12/2016 [employer] Interactive Patient Education ? 2017 [employer] documented in this encounter Plan of Treatment Not on file documented as of this encounter Visit Diagnoses Not on filedocumented in this encounter Care Teams Stocking Inspector Relationship Specialty Start Date End Date Marielos Amaral, KAYE [address] [address] PCP - General Nurse Practitioner 08/18/23 documented as of this encounter
--- OUTSIDE RECORDS SUMMARY | 2025-05-14 20:33 | XMS_ITS | Encounter Summary ---
Author Organization [employer] ([place], [place], [place], [place]) Address [address] [place] [address] Care Team Providers Care Assignment Desk Editor Name Role Phone Munir Marielos RESTREPO Primary Care Provider Encounter Details Date Type Department Care Team (Late st Contact Info) Description 04/22/2022 Transcribed Document [facility] [place] [address] [place] [address] ProviderHaroldo MD [address] [place] [address] Social History Tobacco Use Types [...] Do you speak a language other than Greek at [facility]? Yes 10/30/2024 Do [...] Conversion Note - Historical Provider, - 04/22/2022 9:14 AM CDT Broset Violence Assessment Entered On: 04/22/2022 10:03 EDT Performed On: 04/22/2022 10:02 EDT by Shala Cole RN Broset Violence Assessment Broset Violence Checklist of Symptoms : None Broset Violence Symptoms Subtotal : 0 Broset Violence Symptoms Indicator : Low risk (0) Shala Cole RN - 04/22/2022 10:02 EDT Electronically signed by Brittany [facility] Conversion Grinder Operator [employer] at 01/24/2023 10:30 AM CDT documented in this encounter Plan of Treatment Not on file documented as of this encounter Visit Diagnoses Not on filedocumented in this encounter Care Teams Assignment Desk Editor Relationship Specialty Start Date End Date Marielos Amaral, KAYE [address] [place] [address] PCP - General Nurse Practitioner 08/18/23 documented as of this encounter
--- OUTSIDE RECORDS SUMMARY | 2025-05-14 20:33 | XMS_ITS | Encounter Summary ---
Author Organization [employer] ([place], [place], [place], [place]) Address [address] [place] [address] Care Team Providers Care Rabbet Operator Name Role Phone Marielos Amaral SALES VICE PRESIDENT Primary Care Provider Encounter Details Date Type Department Care Team (Late st Contact Info) Description 04/14/2019 Transcribed Document [facility] [place] [address] [place] [address] ProviderHaroldo MD [address] [place] [address] Social History Tobacco Use Types Packs/Day Years Used Date Smoking Tobacco: Never Assessed Sex and Gender Information Value Date Recorded Sex Assigned at Not on file Legal Sex Male 3:45 PM CDT Gender Identity Not on file Sexual Orientation Not on file documented as of this encounter Miscellaneous Notes * Cerner Conversion Note - Haroldo ProviderMD - 04/14/2019 5:07 PM CDT [address] [address] ELINA ZACKARY COOK :1950 Visit Time:04/14/2019 What to do next Your Diagnosis Valenzuela's esophagus with dysplasia, unspecified, Valenzuela's esophagus with dysplasia, unspecified Instructions From Your Care Team Diet after Discharge: _, _, _ Fluid Restriction after Discharge: _ Activity after Discharge: As tolerated, Rest and relax today, No strenuous activity Lifting Restrictions: _ Weight Bearing: _ Bedrest: _ Driving after Discharge: Do not drive May Return to Work/School: Showering/Bathing: _, _ Notify Provider of: Wound/Incision Care after Discharge: _, _ Medical Equipment for Home Use: Home Health Services: Community Services: Follow-Up Appointments Follow Up with PRINCESS DOCKERY MD-GAE When Within As needed Where: [address] [place] [address] Medications What How Much When Instructions Next Dose amiodarone (amiodarone 200 mg oral tablet) 1 Tablet(s) Oral Every Day amiodarone (amiodarone 200 mg oral tablet) 1 Tablet(s) Oral Every Day apixaban (Eliquis 5 mg oral tablet) 1 Tablet(s) Oral Interval Every 12 Hours apixaban (Eliquis 5 mg oral tablet) 1 Tablet(s) Oral Two Times A Day aspirin (aspirin 81 mg oral delayed release tablet) 1 Tablet(s) Oral Every Day atorvastatin (atorvastatin 40 mg oral tablet) 1 Tablet(s) Oral At Bedtime cholecalciferol (Vitamin D3 1000 intl units oral tablet) 1 Tablet(s) Oral Every Day cyanocobalamin (Vitamin B12 1000 mcg oral tablet) 1 Tablet(s) Oral Every Day glimepiride (glimepiride 4 mg oral tablet) 1 Tablet(s) Oral Two Times A Day lisinopril (lisinopril 10 mg oral tablet) Oral Every Day lisinopril (lisinopril 10 mg oral tablet) 1 Tablet(s) Oral Every Day Duration: 30 Day(s) metFORMIN (metFORMIN 1000 mg oral tablet) 1 Tablet(s) Oral Two Times A Day metoprolol (Toprol-XL 25 mg oral tablet, extended release) 1 Tablet(s) Oral Every Day Duration: 30 Day(s) metoprolol (Toprol-XL 25 mg oral tablet, extended release) Oral Every Day omeprazole (omeprazole 40 mg oral delayed release capsule) 1 Capsule(s) Oral Every Day before a meal SITagliptin (Januvia 100 mg oral tablet) 1 Tablet(s) Oral Every Day tamsulosin (Flomax 0.4 mg oral capsule) 1 Capsule(s) Oral Every Day Take your medications faithfully. Do NOT skip medication. Do NOT stop taking medications without the direction of a physician. Carry a list of your medications with you at all times, and take this medication list with you to your first follow up visit. Report any side effects. Avoid herbal remedies unless discussed with your physician. As part of your treatment plan, your physician may have prescribed a limited course of a controlled substance. This medication may be given to help people with moderate or severe pain or for other medical conditions, but there are risks involved with treatment. Common side effects may include nausea, constipation, drowsiness, sweating, itching, dry mouth, and rash. More serious side effects may include cognitive and motor impairment, like problems with thinking, concentrating, alertness, and movement (e.g. slowed reflexes), and driving and operating heavy machinery can be dangerous. It is important for you to talk to your physician if you have these side effects or questions. These controlled substances can produce physical dependence and be habit-forming if taken for an extended period of time, which means that the body has gotten used to them and may experience withdrawal symptoms if they are abruptly stopped. Withdrawal symptoms can include runny nose, sweating, goose bumps, diarrhea, abdominal cramping, rapid heartbeat, difficulty sleeping, and nervousness. Please dispose of unused and medications per pharmacy guidance. Education Materials Instructions for after EGD with Biopsy 1. [...] Friday-Friday 7:00 am to 3:00 pm at [facility] STROKE is an EMERGENCY Every Minute Counts Act FAST and Check for these signs: FACE Does the face look uneven? ARM Does one arm drift down? SPEECH Does their speech sound strange? TIME Call at any sign of stroke Stroke Risk Factors Atrial Fibrillation (irregular heartbeat) Diabetes Family history of stroke Heart Disease Heavy alcohol use High Blood Pressure High Cholesterol Physical inactivity and obesity Smoking Cigarette Smoking The facts are clear, cigarette smoking will shorten your life. Smoking can cause many illnesses along the way. As a healthcare provider, we recommend that you stop smoking. Assistance with quitting is available by contacting 9-075-MXPDNOW. This is a free resource providing counseling, support, and referral. Or you may contact your personal physician. [employer] Suicide Prevention Lifeline: The National Suicide Prevention Lifeline is a national network of local crisis centers that provides free and confidential emotional support to people in suicidal crisis or emotional distress 24 hours a day, 7 days a week. Don't Wait! Stop a Heart Attack Before it Starts What is a heart attack? A heart attack is damage or to a part of the heart from severely decreased or lack of blood flow to the heart. Over time, arteries can become narrow from the buildup of fat and cholesterol, which is called plaque. The plaque can rupture causing a blood clot to form. When the blood clot forms, the artery can become severely narrowed or completely blocked, causing a heart attack. Heart attack is the leading cause of in the [place]. 85% of muscle damage occurs within the first 2 hours. Delay in the recognition of heart attack symptoms increases the chances of . Know the early symptoms of a heart attack: Nausea Feeling of fullness in chest Jaw Pain Pain that travels down one or both arms Fatigue/being tired Anxiety Back Pain Chest pressure, squeezing, or discomfort Shortness of breath Sweating, or a cold sweat Feeling of impending doom There are unusual signs of a heart attack, too! Women, the elderly, and diabetics may present with atypical symptoms: Fainting/dizziness Weakness Confusion Risk Factors for a Heart Attack Some heart disease risk factors, such as age and family history, cannot be changed. Others, like smoking and lack of exercise, can be changed. Smoking High Cholesterol High Blood Pressure Family History Obesity Age Gender (Males are at higher risk) Lack of Exercise Diabetes Diet Stress Excessive Alcohol Intake If you or someone you know is experiencing the signs and symptoms of a heart attack, DON???T DELAY. Call immediately and seek help. If someone collapses, perform CPR! Do not attempt to drive if you are having symptoms of heart attack. Hands-Only CPR Why Hands-Only CPR? Hands-Only CPR has been shown to be as effective as conventional CPR for cardiac arrests that occur outside of a hospital. Survival depends on immediately receiving CPR from someone nearby. How do you perform Hands-Only CPR? There are two easy steps: Call if you see a teen or adult collapse Push hard and fast in the center of the chest at a beat of 100 beats per minute. Save a life! 4 WAYS TO GET AHEAD OF SEPSIS SEPSIS is a MEDICAL EMERGENCY. Time matters! Infections put you and your family at risk for a life-threatening condition called sepsis. Sepsis is the body's extreme response to an infection. It is life-threatening, and without timely treatment, sepsis can rapidly lead to tissue damage, organ failure, and . Sepsis happens when an infection you already have-in your skin, lungs, urinary tract or somewhere else-triggers a chain reaction throughout your body. 1 PREVENT INFECTIONS Take good care of chronic conditions. Talk to your doctor about getting the recommended vaccines. 2 PRACTICE GOOD HYGIENE Wash your hands frequently. Keep cuts or open sores clean and covered until they are healed. 3 KNOW THE SYMPTOMS Confusion or disorientation Shortness of breath High heart rate Fever, shivering, or feeling very cold Extreme pain or discomfort Clammy or sweaty skin 4 ACT FAST Get medical care IMMEDIATELY if you suspect sepsis or if you have an infection that is not getting better or is getting worse. To learn more about sepsis and how to prevent infections, visit www.cdc.gov/sepsis. Test Results Laboratory or Other Results This Visit (last charted value for your 04/14/2019 visit) General Chemistry 04/14/19 16:48:00 Glucose POC2: 146 mg/dL -- Normal range between ( 70 and 110 ) Patient Name:ZACKARY ANTOINE I have received this information and was given the opportunity to ask questions. Patient/Innersole Fitter Name: Patient/Innersole Fitter Signature: Relationship to Patient: Clinician/Hospital Innersole Fitter Signature: Date: Electronically signed by Brittany, [facility] Conversion Paymaster Of [employer] at 01/24/2023 10:19 AM CDT documented in this encounter Plan of Treatment Not on file documented as of this encounter Visit Diagnoses Not on filedocumented in this encounter Care Teams Rabbet Operator Relationship Specialty Start Date End Date Marielos Amaral APRN [address] [address] PCP - General Nurse Practitioner 08/18/23 documented as of this encounter
--- OUTSIDE RECORDS SUMMARY | 2025-05-14 20:33 | XMS_ITS | Encounter Summary ---
Author Organization [employer] ([place], [place], [place], [place]) Address [address] [place] [address] Care Team Providers Care Expense Analyst Name Role Phone Marielos Amaral APRN Primary Care Provider Encounter Details Date Type Department Care Team (Late st Contact Info) Description 04/14/2019 Transcribed Document [facility] [place] Family Medicine [address] [place] [address] ProviderHaroldo MD [address] [place] [address] Social History Tobacco Use Types Packs/Day Years Used Date Smoking Tobacco: Never Assessed Sex and Gender Information Value Date Recorded Sex Assigned at Not on file Legal Sex Male 3:45 PM CDT Gender Identity Not on file Sexual Orientation Not on file documented as of this encounter Miscellaneous Notes * Cerner Conversion Note - Haroldo ProviderMD - 04/14/2019 4:33 PM CDT [facility] PACU Summary Primary Physician: PRINCESS DOCKERY MD-GAE Finalized Date/Time: 04/14/19 17:19:38 Pt. Name: ELINAZACKARY /Sex: 1950 Male Med Rec #: [id number] Physician: PRINCESS DOCKERY MD-GAE Financial #: [id number] Pt. Type: O Room/Bed: Admit/Disch: 04/14/19 14:02:00 - Institution: [facility] PACU Case Times Entry 1 In PACU I 04/14/19 16:45:00 Ready for PACU 04/14/19 17:09:00 Discharge Discharge from PACU 04/14/19 17:10:00 I [facility] PACU Case Times Audit 04/14/19 17:10:08 Social And Human Services Assistant: ZAC Modifier: BICKNEA <+> 1 Ready for PACU Discharge <+> 1 Discharge from PACU I Finalized By: Ivone Humphreys, RN Document Signatures Signed By: Ivone Humphreys, LUIS 04/14/19 17:19 Electronically signed by Donato Soto Conversion Business Development Representative Cerner at 01/24/2023 10:43 AM CDT documented in this encounter Plan of Treatment Not on file documented as of this encounter Visit Diagnoses Not on filedocumented in this encounter Care Teams Expense Analyst Relationship Specialty Start Date End Date Marielos Amaral, LABOR LAW PROFESSOR [address] [id number] PCP - General Nurse Practitioner 08/18/23 documented as of this encounter
--- OUTSIDE RECORDS SUMMARY | 2025-05-14 20:33 | XMS_ITS | Encounter Summary ---
Author Organization [employer] ([place], [place], [place], [place]) Address [address] [place] [address] Care Team Providers Care Sales And Marketing Executive Name Role Phone Munir Marielos RESTREPO Primary Care Provider Encounter Details Date Type Department Care Team (Late st Contact Info) Description 04/22/2022 Transcribed Document [facility] [address] [place] [address] ProviderHaroldo MD [address] [place] [address] Social History Tobacco Use Types [...] Do you speak a language other than [place] at [facility]? Yes 10/30/2024 Do you want [...] Historical Provider, - 04/22/2022 9:14 AM CDT ED Triage Entered On: 04/22/2022 9:21 EDT Performed On: 04/22/2022 9:15 EDT by ASHLEY DING MAT SEWER Triage Across the Room Chief Complaint : Pt presents via EMS following a syncopal episode. Reprots weakness. Hypotensive upon ED arrival. BP upon arrival was 60 systolic. Received 500mls NS. Hx of CABG and stents. Takes Eliquis. Denies head, neck, ot back pain. Jose M, group care worker. Triage Date/Time : 04/22/2022 9:15 EDT ASHLEY DING RN - 04/22/2022 9:15 EDT DCP GENERIC CODE Tracking Acuity : 2 - Emergent Tracking Group : [facility] ED ASHLEY DING RN - 04/22/2022 9:15 EDT Mode of Arrival : Stretcher Transported to ED by : Ambulance/ALS EMS Service : [facility] To Room Via : Stretcher Accompanied By : Unaccompanied ED Vital Signs : Document Height & Weight : Document ED Allergies : Document ED Reason for Visit : Document Tetanus Immunization : Greater than 5 years ASHLEY DING RN - 04/22/2022 9:15 EDT Infectious Disease History Does patient have symptoms of COVID-19? : No Tested for COVID19 in the past 14 days : No, Patient stated Does the Patient state known exposure to a COVID-19 positive case in the last 14 days? : No Patient Vaccinated for COVID-19 : Fully vaccinated ASHLYE DING RN - 04/22/2022 9:15 EDT Infectious Disease Risk Screening Grid Cough < 2 wks of unknown origin : NO Cough > 2 weeks : NO Blood in Sputum : NO Fever or self-reported Fever : NO Rash of unknown origin : NO Headache : NO Stiff neck : NO Night Sweats : NO Unexplained Weight Loss : NO Diarrhea (3 episode per day) : NO ASHLEY DING RN - 04/22/2022 9:15 EDT Physical contact outside [place] in the last 30 days : No Hospitalized in Foreign Country : No Infectious Disease History : Chicken pox/Shingles, Influenza, Measles, Mumps, Rubella INF Disease TB Screening Calc : 0 INF Disease Recent Travel Calc : 0 ASHLEY DING RN - 04/22/2022 9:15 EDT Vital Signs ED Temperature Source : Oral Temperature Mode : Fahrenheit Temperature, Fahrenheit : 97.8 Deg F Clinical Temperature, C : 36.6 Deg C Oxygen Therapy Mode : Room air Peripheral Pulse Rate : 70 bpm Respiratory Rate : 18 Breaths/Min Oxygen Saturation : 100 % ASHLEY DING RN - 04/22/2022 9:15 EDT Allergy (As Of: 04/22/2022 09:21:11 EDT) Allergies (Active) amoxicillin Estimated Onset Date: Unspecified ; Created By: RAVEN REILLY RN; Reaction Status: Active ; Category: Drug ; Substance: amoxicillin ; Type: Allergy ; Updated By: RAVEN REILLY RN; Reviewed Date: 04/22/2022 9:17 EDT Mucinex Estimated Onset Date: Unspecified ; Created By: RAVEN REILLY RN; Reaction Status: Active ; Category: Drug ; Substance: Mucinex ; Type: Allergy ; Updated By: RAVEN REILLY RN; Reviewed Date: 04/22/2022 9:17 EDT penicillin Estimated Onset Date: Unspecified ; Created By: Marielle Ward RN; Reaction Status: Active ; Category: Drug ; Substance: penicillin ; Type: Allergy ; Updated By: Marielle Ward RN; Reviewed Date: 04/22/2022 9:17 EDT Diagnosis Control ED (As Of: 04/22/2022 09:21:11 EDT) Problems(Active) Acute cerebrovascular accident (CVA) (SNOMED CT :332091068 ) Name of Problem: Acute cerebrovascular accident (CVA) ; Recorder: Roxana Brady RN; Confirmation: Confirmed ; Classification: Medical ; Code: [id number] ; Contributor System: GarpunChart ; Last Updated: 04/12/2020 7:03 EDT ; Life Cycle Date: 04/12/2020 ; Life Cycle Status: Active ; Vocabulary: SNOMED CT Angina (SNOMED CT :354844415 ) Name of Problem: Angina ; Recorder: RAVEN REILLY RN; Confirmation: Confirmed ; Classification: Patient Stated ; Code: 744683059 ; Contributor System: PowerChart ; Last Updated: 07/20/2014 9:33 EDT ; Life Cycle Date: 07/20/2014 ; Life Cycle Status: Active ; Vocabulary: SNOMED CT Atrial fibrillation (SNOMED CT :10007537 ) Name of Problem: Atrial fibrillation ; Recorder: MARIO SRIVASTAVA RN; Confirmation: Confirmed ; Classification: Medical ; Code: 43971564 ; Contributor System: PowerChart ; Last Updated: 12/11/2020 13:21 EST ; Life Cycle Status: Active ; Vocabulary: SNOMED CT CAD - Coronary artery disease (SNOMED CT :3351506679 ) Name of Problem: CAD - Coronary artery disease ; Recorder: MARIO SRIVASTAVA RN; Confirmation: Confirmed ; Classification: Medical ; Code: 4709836265 ; Contributor System: PowerChart ; Last Updated: 12/11/2020 13:20 EST ; Life Cycle Status: Active ; Vocabulary: SNOMED CT Cardiomyopathy (SNOMED CT :124028262 ) Name of Problem: Cardiomyopathy ; Recorder: MARIO SRIVASATVA RN; Confirmation: Confirmed ; Classification: Medical ; Code: 240720741 ; Contributor System: PowerChart ; Last Updated: 12/11/2020 13:20 EST ; Life Cycle Status: Active ; Vocabulary: SNOMED CT Coronary artery disease (SNOMED CT :4682780920 ) Name of Problem: Coronary artery disease ; Recorder: RAVEN REILLY RN; Confirmation: Confirmed ; Classification: Patient Stated ; Code: 2178774849 ; Contributor System: PowerChart ; Last Updated: 07/20/2014 9:33 EDT ; Life Cycle Date: 07/20/2014 ; Life Cycle Status: Active ; Vocabulary: SNOMED CT Diabetes mellitus type II (SNOMED CT :07104277 ) Name of Problem: Diabetes mellitus type II ; Recorder: RAVEN REILLY RN; Confirmation: Confirmed ; Classification: Patient Stated ; Code: 74157203 ; Contributor System: PowerChart ; Last Updated: 07/20/2014 9:35 EDT ; Life Cycle Date: 07/20/2014 ; Life Cycle Status: Active ; Vocabulary: SNOMED CT Enlarged prostate (SNOMED CT :687475269 ) Name of Problem: Enlarged prostate ; Recorder: RAVEN REILLY RN; Confirmation: Confirmed ; Classification: Patient Stated ; Code: 772868092 ; Contributor System: PowerChart ; Last Updated: 07/20/2014 9:34 EDT ; Life Cycle Date: 07/20/2014 ; Life Cycle Status: Active ; Vocabulary: SNOMED CT GERD - Gastro-esophageal reflux disease (SNOMED CT :2908946048 ) Name of Problem: GERD - Gastro-esophageal reflux disease ; Recorder: RAVEN REILLY RN; Confirmation: Confirmed ; Classification: Patient Stated ; Code: 5479192272 ; Contributor System: PowerChart ; Last Updated: 07/20/2014 9:34 EDT ; Life Cycle Date: 07/20/2014 ; Life Cycle Status: Active ; Vocabulary: SNOMED CT Heart failure (SNOMED CT :814450187 ) Name of Problem: Heart failure ; Recorder: RAVEN REILLY RN; Confirmation: Confirmed ; Classification: Patient Stated ; Code: 693078129 ; Contributor System: PowerChart ; Last Updated: 07/20/2014 9:33 EDT ; Life Cycle Date: 07/20/2014 ; Life Cycle Status: Active ; Vocabulary: SNOMED CT Heart murmur (SNOMED CT :796435570 ) Name of Problem: Heart murmur ; Recorder: RAVEN REILLY RN; Confirmation: Confirmed ; Classification: Patient Stated ; Code: 907063444 ; Contributor System: PowerChart ; Last Updated: 07/20/2014 9:33 EDT ; Life Cycle Date: 07/20/2014 ; Life Cycle Status: Active ; Vocabulary: SNOMED CT History of obstructive sleep apnea (IMO :94179306 ) Name of Problem: History of obstructive sleep apnea ; Recorder: SYSTEM, SYSTEM; Confirmation: Confirmed ; Classification: Medical ; Code: 79590631 ; Last Updated: 01/20/2019 12:39 EDT ; Life Cycle Date: 01/20/2019 ; Life Cycle Status: Active ; Vocabulary: IMO HLD - Hyperlipidemia (SNOMED CT :884928759 ) Name of Problem: HLD - Hyperlipidemia ; Recorder: MARIO SRIVASTAVA RN; Confirmation: Confirmed ; Classification: Medical ; Code: 254858575 ; Contributor System: PowerChart ; Last Updated: 12/11/2020 13:20 EST ; Life Cycle Status: Active ; Vocabulary: SNOMED CT HTN - Hypertension (SNOMED CT :4309510166 ) Name of Problem: HTN - Hypertension ; Recorder: MARIO SRIVASTAVA RN; Confirmation: Confirmed ; Classification: Medical ; Code: 1774285202 ; Contributor System: PowerChart ; Last Updated: 12/11/2020 13:20 EST ; Life Cycle Status: Active ; Vocabulary: SNOMED CT Hyperlipidemia (SNOMED CT :36944411 ) Name of Problem: Hyperlipidemia ; Recorder: RAVEN REILLY RN; Confirmation: Confirmed ; Classification: Patient Stated ; Code: 37433337 ; Contributor System: PowerChart ; Last Updated: 09/03/2017 13:38 EST ; Life Cycle Date: 07/20/2014 ; Life Cycle Status: Active ; Vocabulary: SNOMED CT Hypertension (SNOMED CT :13218144 ) Name of Problem: Hypertension ; Recorder: RAVEN REILLY RN; Confirmation: Confirmed ; Classification: Patient Stated ; Code: 23881177 ; Contributor System: PowerChart ; Last Updated: 07/20/2014 9:33 EDT ; Life Cycle Date: 07/20/2014 ; Life Cycle Status: Active ; Vocabulary: SNOMED CT Impaired vision (SNOMED CT :58011631 ) Name of Problem: Impaired vision ; Recorder: RAVEN REILLY RN; Confirmation: Confirmed ; Classification: Patient Stated ; Code: 33065324 ; Contributor System: GarpunChart ; Last Updated: 07/20/2014 9:32 EDT ; Life Cycle Date: 07/20/2014 ; Life Cycle Status: Active ; Vocabulary: SNOMED CT Migraine (SNOMED CT :31722126 ) Name of Problem: Migraine ; Recorder: RAVEN REILLY RN; Confirmation: Confirmed ; Classification: Patient Stated ; Code: 18138678 ; Contributor System: PowerChart ; Last Updated: 07/20/2014 9:35 EDT ; Life Cycle Date: 07/20/2014 ; Life Cycle Status: Active ; Vocabulary: SNOMED CT Stented coronary artery (SNOMED CT :0286722484 ) Name of Problem: Stented coronary artery ; Recorder: RAVEN REILLY RN; Confirmation: Confirmed ; Classification: Patient Stated ; Code: 0910994963 ; Contributor System: Herzio ; Last Updated: 07/20/2014 9:33 EDT ; Life Cycle Date: 07/20/2014 ; Life Cycle Status: Active ; Vocabulary: SNOMED CT Type 2 diabetes mellitus (SNOMED CT :213127208 ) Name of Problem: Type 2 diabetes mellitus ; Recorder: MARIO SRIVASTAVA RN; Confirmation: Confirmed ; Classification: Medical ; Code: 900696993 ; Contributor System: PowerChart ; Last Updated: 12/11/2020 13:20 EST ; Life Cycle Status: Active ; Vocabulary: SNOMED CT Diagnoses(Active) Syncope/Near syncope Date: 04/22/2022 ; Diagnosis Type: Reason For Visit ; Confirmation: Complaint of ; Clinical Dx: Syncope/Near syncope ; Classification: Medical ; Clinical Service: Emergency medicine ; Code: PNED ; Probability: 0 ; Diagnosis Code: [id number] ED Height and Weight Height Source : Stated Height Entry Format : [place] Height, Feet : 5 ft(Converted to: 152 cm, 60 Inch) Height, Inches : 9 Inch(Converted to: 0 ft 9 Inch, 22.86 cm) Clinical Height : 175.26 cm Weight Source, ED : Critical estimated dosing weight Weight Entry Format : [place] Weight, Pounds : 187 lb Clinical Dosing Weight : 85 kg Body Surface Area (BSA) : 2.01 m2 Body Mass Index : 27.7 kg/m2 (HI) [place] Body Weight (IBW) : 69.73 kg ASHLEY DING RN - 04/22/2022 9:15 EDT Electronically signed by Renetta Soto Conversion Suction Dredge Dumping Supervisor Cerner at 01/24/2023 10:26 AM CDT documented in this encounter Plan of Treatment Not on file documented as of this encounter Visit Diagnoses Not on filedocumented in this encounter Care Teams Sales And Marketing Executive Relationship Specialty Start Date End Date Marielos Amaral APRN [address] [address] PCP - General Nurse Practitioner 08/18/23 documented as of this encounter
--- OUTSIDE RECORDS SUMMARY | 2025-05-14 20:33 | XMS_ITS | Encounter Summary ---
Author Organization [employer] ([place], [place], [place], [place]) Address [address] [place] [address] Care Team Providers Care Copying Machine Repairer Name Role Phone Marielos Amaral KAYE Primary Care Provider Encounter Details Date Type Department Care Team (Late st Contact Info) Description 02/09/2019 Transcribed Document [facility] [place] [address] [place] [address] ProviderHaroldo MD [address] [place] [address] Social History Tobacco Use Types Packs/Day Years Used Date Smoking Tobacco: Never Assessed Sex and Gender Information Value Date Recorded Sex Assigned at Not on file Legal Sex Male 3:45 PM CDT Gender Identity Not on file Sexual Orientation Not on file documented as of this encounter Miscellaneous Notes * Cerner Conversion Note - Haroldo ProviderMD - 02/09/2019 3:14 PM CDT Discharge Summary, PT Entered On: 02/09/2019 15:16 EDT Performed On: 02/09/2019 15:14 EDT by Melany Velasquez Hoop Expander Discharge Summary Discharge Summary Provider Notified : Nursing, Physical Therapy Reason for Discharge : Discharge order Discharged to, Therapy : Outpatient rehabilitation Melany Velasquez Hoop Expander - 02/09/2019 15:14 EDT Discharge Summary Comment, PT : pt has discharge orders in from hospital to home with outpatient rehab, per last PTx - pt compeletely independent for bed mobility and transfers, pt ambulated 100' x 2 with supervision and no AD, pt ascended/descended 10 stairs with supervision. PT has reviewed and agrees with note. JACQUELYN KIM, PT - 02/09/2019 15:48 EDT Director Of Marketing Google Performance Ads Goals Mobility/Bed Mobility LTG PT Grid Goal #1 Goal #2 Activity : Supine to sit Sit to stand Assist : Independent, complete Independent, complete Date to Meet : 02/20/2019 EDT 02/20/2019 EDT Goal Status : Goal met Goal met Date Met : 02/07/2019 EDT 02/07/2019 EDT Comment : HOB flat Melany Velasquez Hoop Expander - 02/09/2019 15:14 EDT Melany Velasquez Hoop Expander - 02/09/2019 15:14 EDT Ambulation LTG Grid Goal #1 Device : Other: no AD vs SPC Distance : 300 ft Assist : Independent, modified Date to Meet : 02/20/2019 EDT Goal Status : Goal met Date Met : 10/06/2018 EST Melany Velasquez Hoop Expander - 02/09/2019 15:14 EDT Stairs LTG Grid Goal #1 Device : None Number of Steps : 4 Handrail(s) : One handrail Assist : Independent, modified Date to Meet : 02/21/2019 EDT Goal Status : Not met Melany Velasquez Hoop Expander - 02/09/2019 15:14 EDT documented in this encounter Plan of Treatment Not on file documented as of this encounter Visit Diagnoses Not on filedocumented in this encounter Care Teams Copying Machine Repairer Relationship Specialty Start Date End Date Marielos Amaral, KAYE [address] [id number] PCP - General Nurse Practitioner 08/18/23 documented as of this encounter
--- OUTSIDE RECORDS SUMMARY | 2025-05-14 20:33 | XMS_ITS | Encounter Summary ---
Author Organization [employer] ([place], [place], [place], [place]) Address [address] [place] [address] Care Team Providers Care Service Clerk Name Role Phone Marielos Amaral KAYE Primary Care Provider Encounter Details Date Type Department Care Team (Late st Contact Info) Description 02/09/2019 Transcribed Document [facility] [place] Family Medicine [address] [place] [address] ProviderHaroldo MD [address] [place] [address] Social History Tobacco Use Types Packs/Day Years Used Date Smoking Tobacco: Never Assessed Sex and Gender Information Value Date Recorded Sex Assigned at Not on file Legal Sex Male 3:45 PM CDT Gender Identity Not on file Sexual Orientation Not on file documented as of this encounter Miscellaneous Notes * Cerner Conversion Note - Haroldo ProviderMD - 02/09/2019 2:14 PM CDT Stroke/Warfarin Instructions Entered On: 02/09/2019 14:15 EDT Performed On: 02/09/2019 14:14 EDT by Lina Chaudhary Rn-Flex Team Stroke/Warfarin Instructions Stroke/TIA Discharge Ins : Open Warfarin Discharge Ins : N/A Lina Chaudhary Rn-Flex Team - 02/09/2019 14:14 EDT Stroke/TIA Discharge Instructions Individualized Stroke Risk Factors *Q : Atrial fibrillation, Coronary artery disease, Diabetes, Heart disease, High cholesterol Stroke Education Handouts Given *Q : Yes Lina Chaudhary Rn-Flex Team - 02/09/2019 14:14 EDT Stroke Education Materials Given-Grid Activation of EMS *Q : Verbalizes understanding Follow-up Care After Discharge *Q : Verbalizes understanding Medications prescribed at DC *Q : Verbalizes understanding Risk Factors for Stroke *Q : Verbalizes understanding Warning S&S of Stroke *Q : Verbalizes understanding Lina Chaudhary Rn-Flex Team - 02/09/2019 14:14 EDT Stroke/TIA Signs/Symptoms to Report Immediately : Sudden onset difficulty speaking, Sudden onset difficulty understanding speech, Sudden onset change in vision, Sudden onset weakness particulary on one side of the body, Sudden onset numbness/tingling, Sudden severe headache, Sudden dizziness or trouble with gait, Call 06-06-: EMS activation is crucial My LDL Level: : LDL Level Cholesterol LDL Calculation: 68.8 mg/dL (02/07/19 06:59:00) Lina Chaudhary Rn-Flex Team - 02/09/2019 14:14 EDT documented in this encounter Plan of Treatment Not on file documented as of this encounter Visit Diagnoses Not on filedocumented in this encounter Care Teams Service Clerk Relationship Specialty Start Date End Date Marielos Amaral, KAYE [address] [place] [address] PCP - General Nurse Practitioner 08/18/23 documented as of this encounter
--- OUTSIDE RECORDS SUMMARY | 2025-05-14 20:33 | XMS_ITS | Encounter Summary ---
Author Organization [employer] ([place], [place], [place], [place]) Address [address] [place] [address] Care Team Providers Care Crystal Grinder Name Role Phone Marielos Amaral APRN Primary Care Provider Encounter Details Date Type Department Care Team (Late st Contact Info) Description 02/09/2019 Transcribed Document [facility] Family Medicine [address] [place] [address] ProviderHaroldo MD [address] [place] [address] Social History Tobacco Use Types Packs/Day Years Used Date Smoking Tobacco: Never Assessed Sex and Gender Information Value Date Recorded Sex Assigned at Not on file Legal Sex Male 3:45 PM CDT Gender Identity Not on file Sexual Orientation Not on file documented as of this encounter Miscellaneous Notes * Cerner Conversion Note - Haroldo ProviderMD - 02/09/2019 2:17 PM CDT [facility] [address] [place] [id number] DEION ANTOINE :1950 Visit Time:02/07/2019 Your Visit Summary Your Care Team Admitting Physician - PETRA TORRES MD-INT Attending Physician - RODNEY KAUR MD Primary Care Physician - KATELYN MCKEON (REF)MD-FAM Referring Physician - JAIR HOOD MD Your Diagnosis Ataxia, Ataxia, unspecified, Ataxia, unspecified Weakness Weakness Discharge Vitals Temperature 36.6 ??C Heart Rate (Monitored) 81 Respiratory Rate 14 Blood Pressure 150/72 What to do next Instructions From Your Care Team Community Services: Outpatient physical therapy at [facility] phone [phone] Discharge Follow Up Instructions: Follow-Up Appointments Follow Up with YANICK WHEELER When Within 2 to 3 days Where: [address] [place], [place] [id number] [facility] (1) Medications What How Much When Instructions Next Dose amiodarone (amiodarone 200 mg oral tablet) 1 Tablet(s) Oral Every Day NEW Printed Prescription apixaban (Eliquis 5 mg oral tablet) 1 Tablet(s) Oral Interval Every 12 Hours NEW Printed Prescription SITagliptin (Januvia 100 mg oral tablet) 1 Tablet(s) Oral Every Day lisinopril (lisinopril 10 mg oral tablet) 1 Tablet(s) Oral Every Day Duration: 30 Day(s) Please note: new dose. This is a dose decrease. Printed Prescription metoprolol (Toprol-XL 25 mg oral tablet, extended release) 1 Tablet(s) Oral Every Day Duration: 30 Day(s) Please note: new dose. This is a dose decrease. Printed Prescription aspirin (aspirin 81 mg oral delayed release tablet) 1 Tablet(s) Oral Every Day atorvastatin (atorvastatin 40 mg oral tablet) 1 Tablet(s) Oral At Bedtime cholecalciferol (Vitamin D3 1000 intl units oral tablet) 1 Tablet(s) Oral Every Day cyanocobalamin (Vitamin B12 1000 mcg oral tablet) 1 Tablet(s) Oral Every Day glimepiride (glimepiride 4 mg oral tablet) 1 Tablet(s) Oral Two Times A Day metFORMIN (metFORMIN 1000 mg oral tablet) 1 Tablet(s) Oral Two Times A Day omeprazole (omeprazole 40 mg oral delayed release capsule) 1 Capsule(s) Oral Every Day before a meal tamsulosin (Flomax 0.4 mg oral capsule) 1 [...] Please dispose of unused and medications per your retail pharmacy guidance. Allergies Mucinex amoxicillin Immunizations This Visit No Immunizations Found Stroke/TIA Instructions Individualized Stroke Risk Factors Individualized Stroke Risk Factors *Q: Atrial fibrillation, Coronary artery disease, Diabetes, Heart disease, High cholesterol Stroke/TIA Signs/Symptoms to Report Immediately: Sudden onset difficulty speaking, Sudden onset difficulty understanding speech, Sudden onset change in vision, Sudden onset weakness particulary on one side of the body, Sudden onset numbness/tingling, Sudden severe headache, Sudden dizziness or trouble with gait, Call : EMS activation is crucial Mutually Agreed Upon Goals My LDL Level: My LDL Level: Education [employer] Ischemic Stroke An ischemic stroke (cerebrovascular accident, [...] understanding speech, or both (aphasia). ??? Vision changes???such as double vision, blurred vision, or loss of vision???in one or both eyes. ??? Dizziness. ??? Nausea [...] work better if they are done within 3???6 hours of the onset of stroke symptoms. [...] these instructions at home: Medicines ??? Take zbmm-spi-ugfyemx and prescription medicines only as told by [...] of beer, 5 oz of wine, or 1?? oz of hard liquor. ??? If you [...] 09/22/2006 Document Revised: 03/04/2017 Document Reviewed: 12/18/2016 [employer] Patient Education ?? 2017 [employer] Weakness Weakness is a lack of [...] 09/04/2009 Document Revised: 03/23/2013 Document Reviewed: 07/12/2016 [employer] Patient Education ?? 2017 [employer]. amiodarone (oral) (A mi [place] john sen) Pacerone What is the most important information I should know about amiodarone? Amiodarone is for use only in treating life-threatening heart rhythm disorders. You should not take this medicine if you are allergic to amiodarone or iodine, or if you have heart block, a history of slow heartbeats that have caused you to faint, or if your heart cannot pump blood properly. Amiodarone can cause dangerous side effects on your heart, liver, lungs, or vision. Call your doctor or get medical help at once if you have: chest pain, fast or pounding heartbeats, trouble breathing, vision problems, upper stomach pain, vomiting, dark urine, jaundice (yellowing of the skin or eyes), or if you cough up blood. What is amiodarone? Amiodarone affects the rhythm of your heartbeats. Amiodarone is used to help keep the heart beating normally in people with life-threatening heart rhythm disorders of the ventricles (the lower chambers of the heart that allow blood to flow out of the heart). Amiodarone is used to treat ventricular tachycardia or ventricular fibrillation. Amiodarone is for use only in treating life-threatening heart rhythm disorders. Amiodarone may also be used for purposes not listed in this medication guide. What should I discuss with my healthcare provider before taking amiodarone? You should not use this medicine if you are allergic to amiodarone or iodine, or if you have: ? a serious heart condition called 'AV block' (2nd or 3rd degree), unless you have a pacemaker; ?? a history of slow heartbeats that have caused you to faint; or ?? if your heart cannot pump blood properly. Amiodarone can cause dangerous side effects on your heart, liver, lungs, or thyroid. Tell your doctor if you have ever had: ? asthma or another lung disorder; ?? liver disease; ?? a thyroid disorder; ?? vision problems; ?? high or low blood pressure; ?? an electrolyte imbalance (such as low levels of potassium or magnesium in your blood); or ?? if you have a pacemaker or defibrillator implanted in your chest. Taking amiodarone during may harm an unborn baby, or cause thyroid problems or abnormal heartbeats in the baby after it is born. Amiodarone may also affect the child's growth or development (speech, movement, academic skills) later in life. Tell your doctor if you are or if you become . You should not breast-feed while taking amiodarone, and for several months after stopping. Amiodarone takes a long time to clear from your body. Talk to your doctor about the best way to feed your baby during this time. How should I take amiodarone? Follow all directions on your prescription label and read all medication guides or instruction sheets. Your doctor may occasionally change your dose. Use the medicine exactly as directed. You will receive your first few doses in a hospital setting, where your heart rhythm can be monitored. If you have been taking another heart rhythm medicine, you may need to gradually stop taking it when you start using amiodarone. Follow your doctor's dosing instructions very carefully. You may take amiodarone with or without food, but take it the same way each time. It may take up to 3 weeks before your heart rhythm improves. Keep using the medicine as directed even if you feel well. Amiodarone can have long lasting effects on your body. You may need frequent medical tests while using this medicine and for several months after your last dose. If you need surgery (including laser eye surgery), tell the surgeon ahead of time that you are using amiodarone. This medicine can affect the results of certain medical tests. Tell any doctor who treats you that you are using amiodarone. Store at room temperature away from moisture, heat, and light. What happens if I miss a dose? Skip the missed dose and use your next dose at the regular time. Do not use two doses at one time. What happens if I overdose? Seek emergency medical attention or call the Poison Help line at . An overdose of amiodarone can be fatal. Overdose symptoms may include weakness, slow heart rate, feeling light-headed, or loss of consciousness. What should I avoid while taking amiodarone? Avoid driving or hazardous activity until you know how this medicine will affect you. Your reactions could be impaired. Grapefruit may interact with amiodarone and lead to unwanted side effects. Avoid the use of grapefruit products. Avoid taking an herbal supplement containing Kenyon's wort. Amiodarone could make you sunburn more easily. Avoid sunlight or tanning beds. Wear protective clothing and use sunscreen (SPF 30 or higher) when you are outdoors. What are the possible side effects of amiodarone? Get emergency medical help if you have signs of an allergic reaction: hives; difficulty breathing; swelling of your face, lips, tongue, or throat. Amiodarone takes a long time to completely clear from your body. You may continue to have side effects from amiodarone after you stop using it. Call your doctor at once if you have any of these side effects, even if they occur up to several months after you stop using amiodarone: ? wheezing, cough, chest pain, cough with bloody mucus, fever; ?? a new or a worsening irregular heartbeat pattern (fast, slow, or pounding heartbeats); ?? a light-headed feeling, like you might pass out; ?? blurred vision, seeing halos around lights (your eyes may be more sensitive to light); ?? liver problems--nausea, vomiting, stomach pain (upper right side), tiredness, dark urine, jaundice (yellowing of the skin or eyes); ?? nerve problems--loss of coordination, muscle weakness, uncontrolled muscle movement, or a prickly feeling in your hands or lower legs; ?? signs of overactive thyroid--weight loss, thinning hair, feeling hot, increased sweating, tremors, feeling nervous or irritable, irregular menstrual periods, swelling in your neck (goiter); or ?? signs of underactive thyroid--weight gain, tiredness, depression, trouble concentrating, feeling cold. Common side effects may include: ? nausea, vomiting, loss of appetite; or ?? constipation. This is not a complete list of side effects and others may occur. Call your doctor for medical advice about side effects. You may report side effects to FDA at 3-445-GRP-9465. What other drugs will affect amiodarone? Sometimes it is not safe to use certain medications at the same time. Some drugs can affect your blood levels of other drugs you take, which may increase side effects or make the medications less effective. Amiodarone takes a long time to completely clear from your body. Drug interactions are possible for up to several months after you stop using amiodarone. Talk to your doctor before taking any medication during this time. Keep track of how long it has been since your last dose of amiodarone. Many drugs can affect amiodarone. This includes prescription and hfxm-ywt-ugdhwsi medicines, vitamins, and herbal products. Not all possible interactions are listed here. Tell your doctor about all your current medicines and any medicine you start or stop using. Where can I get more information? Your doctor or pharmacist can provide more information about amiodarone. Remember, keep this and all other medicines out of the reach of children, never share your medicines with others, and use this medication only for the indication prescribed. Every effort has been made to ensure that the information provided by [employer]. [employer]') is accurate, up-to-date, and complete, but no guarantee is made to that effect. Drug information contained herein may be time sensitive. [employer] information has been compiled for use by healthcare practitioners and consumers in the [place] and therefore [employer] does not warrant that uses outside of the [place] are appropriate, unless specifically indicated otherwise. [employer] drug information does not endorse drugs, diagnose patients or recommend therapy. [employer] drug information is an informational resource designed to assist licensed healthcare practitioners in caring for their patients and/or to serve consumers viewing this service as a supplement to, and not a substitute for, the expertise, skill, knowledge and judgment of healthcare practitioners. The absence of a warning for a given drug or drug combination in no way should be construed to indicate that the drug or drug combination is safe, effective or appropriate for any given patient. [employer] does not assume any responsibility for any aspect of healthcare administered with the aid of information [facility] provides. The information contained herein is not intended to cover all possible uses, directions, precautions, warnings, drug interactions, allergic reactions, or adverse effects. If you have questions about the drugs you are taking, check with your doctor, nurse or pharmacist. Copyright 6123-4655 [employer]. Version: 7.01. Revision Date: 08/11/2018.apixaban (a PIX a ban) Jesse What is the most important information I should know about apixaban? You should not take apixaban if you have an artificial heart valve, or if you have any active bleeding from a surgery, injury, or other cause. Apixaban can cause a very serious blood clot around your spinal cord if you undergo a spinal tap or receive spinal anesthesia (epidural), especially if you have a genetic spinal defect, if you have a spinal catheter in place, if you have a history of spinal surgery or repeated spinal taps, or if you are also using other drugs that can affect blood clotting. This type of blood clot can lead to long-term or permanent paralysis. Get emergency medical help if you have symptoms of a spinal cord blood clot such as back pain, numbness or muscle weakness in your lower body, or loss of bladder or bowel control. Do not stop taking apixaban unless your doctor tells you to. Stopping suddenly can increase your risk of blood clot or stroke. What is apixaban? Apixaban blocks the activity of certain clotting substances in the blood. Apixaban is used to lower the risk of stroke caused by a blood clot in people with a heart rhythm disorder called atrial fibrillation. Apixaban is also used after hip or knee replacement surgery to prevent a type of blood clot called deep vein thrombosis (DVT), which can lead to blood clots in the lungs (pulmonary embolism). Apixaban is also used to treat DVT or pulmonary embolism (PE), and to lower your risk of having a repeat DVT or PE. Apixaban may also be used for purposes not listed in this medication guide. What should I discuss with my healthcare provider before taking apixaban? You should not take apixaban if you are allergic to it, or if you have: ? an artificial heart valve; or ?? active bleeding from a surgery, injury, or other cause. Apixaban may cause you to bleed more easily, especially if you have a bleeding disorder that is inherited or caused by disease. Tell your doctor if you have ever had: ? kidney disease (or if you are on dialysis); ?? liver disease; ?? if you are older than 80; or ?? if you weigh less than 132 pounds. Apixaban can cause a very serious blood clot around your spinal cord if you undergo a spinal tap or receive spinal anesthesia (epidural). This type of blood clot could cause long-term paralysis, and may be more likely to occur if: ? you have a spinal catheter in place or if a catheter has been recently removed; ?? you have a history of spinal surgery or repeated spinal taps; ?? you have recently had a spinal tap or epidural anesthesia; ?? you are taking an NSAID (nonsteroidal anti-inflammatory drug)--ibuprofen (Advil, Motrin), naproxen (Aleve), diclofenac, indomethacin, meloxicam, and others; or ?? you are using other medicines to treat or prevent blood clots. Taking apixaban during may increase the risk of bleeding while you are or during your delivery. Tell your doctor if you are or plan to become . You should not breast-feed while using this medicine. How should I take apixaban? Follow all directions on your prescription label and read all medication guides or instruction sheets. Your doctor may occasionally change your dose. Use the medicine exactly as directed. You may take apixaban with or without food. If you cannot swallow a tablet whole, crush and mix it with water, apple juice, or a spoonful of applesauce. Swallow the mixture right away without chewing. Do not save it for later use. A crushed tablet mixture may also be given through a nasogastric (NG) feeding tube. Read and carefully follow any Instructions for Use provided with your medicine. Ask your doctor or pharmacist if you do not understand these instructions. Apixaban can make it easier for you to bleed, even from a minor injury. Seek medical attention if you have bleeding that will not stop. If you need surgery or dental work, tell the doctor or dentist ahead of time if you have taken apixaban within the past 24 hours. You may need to stop taking apixaban for a short time. Do not stop taking apixaban unless your doctor tells you to. Stopping suddenly can increase your risk of blood clot or stroke. If you stop taking apixaban for any reason, your doctor may prescribe another medication to prevent blood clots until you start taking apixaban again. Store at room temperature away from moisture and heat. What happens if I miss a dose? Take the missed dose on the same day you remember it. Take your next dose at the regular time and stay on your twice-daily schedule. Do not take two doses at one time. Get your prescription refilled before you run out of medicine completely. What happens if I overdose? Seek emergency medical attention or call the Poison Help line at . What should I avoid while taking apixaban? Avoid activities that may increase your risk of bleeding or injury. Use extra care to prevent bleeding while shaving or brushing your teeth. What are the possible side effects of apixaban? Get emergency medical help if you have signs of an allergic reaction: hives; difficult breathing; swelling of your face, lips, tongue, or throat. Also seek emergency medical attention if you have symptoms of a spinal blood clot: back pain, numbness or muscle weakness in your lower body, or loss of bladder or bowel control. Call your doctor at once if you have: ? easy bruising, unusual bleeding (nose, mouth, vagina, or rectum), bleeding from wounds or needle injections, any bleeding that will not stop; ?? heavy menstrual periods; ?? headache, dizziness, weakness, feeling like you might pass out; ?? urine that looks red, pink, or brown; or ?? black or bloody stools, coughing up blood or vomit that looks like coffee grounds. This is not a complete list of side effects and others may occur. Call your doctor for medical advice about side effects. You may report side effects to FDA at 4-403-BGK-7312. What other drugs will affect apixaban? Sometimes it is not safe to use certain medications at the same time. Some drugs can affect your blood levels of other drugs you take, which may increase side effects or make the medications less effective. Many other drugs (including some hcbe-cew-krnfccu medicines) can increase your risk of bleeding or blood clots, or your risk of developing blood clots around the brain or spinal cord during a spinal tap or epidural. It is very important to tell your doctor about all medicines you have recently used, especially: ? any other medicines to treat or prevent blood clots; ?? a blood thinner such as heparin or warfarin (Coumadin, Jantoven); ?? an antidepressant; or ?? an NSAID (nonsteroidal anti-inflammatory drug) used fpc. This list is not complete and many other drugs may affect apixaban. This includes prescription and mgzb-ozw-fmcuxig medicines, vitamins, and herbal products. Not all possible drug interactions are listed here. Where can I get more information? Your pharmacist can provide more information about apixaban. Remember, keep this and all other medicines out of the reach of children, never share your medicines with others, and use this medication only for the indication prescribed. Every effort has been made to ensure that the information provided by [employer] is accurate, up-to-date, and complete, but no guarantee is made to that effect. Drug information contained herein may be time sensitive. [employer] information has been compiled for use by healthcare practitioners and consumers in the [place] and therefore [employer] does not warrant that uses outside of the [place] are appropriate, unless specifically indicated otherwise. [employer]'s drug information does not endorse drugs, diagnose patients or recommend therapy. [employer] drug information is an informational resource designed to assist licensed healthcare practitioners in caring for their patients and/or to serve consumers viewing this service as a supplement to, and not a substitute for, the expertise, skill, knowledge and judgment of healthcare practitioners. The absence of a warning for a given drug or drug combination in no way should be construed to indicate that the drug or drug combination is safe, effective or appropriate for any given patient. [employer] does not assume any responsibility for any aspect of healthcare administered with the aid of information [employer] provides. The information contained herein is not intended to cover all possible uses, directions, precautions, warnings, drug interactions, allergic reactions, or adverse effects. If you have questions about the drugs you are taking, check with your doctor, nurse or pharmacist. Copyright 4961-0653 [employer]. Version: 3.01. Revision Date: 02/11/2018. Emergency Awareness and Preventative Care STROKE is [...] Assistance with quitting is available by contacting 7-955-JUNYNOW. This is a free resource providing counseling, support, and referral. Or you may contact your personal physician. National Suicide Prevention Lifeline: The National Suicide Prevention [...] and how to prevent infections, visit www.cdc.gov/sepsis. Patient Portal Reminder: Be sure to sign up for the [facility] patient portal, which gives you 28/04 access to your medical information ??? including these discharge instructions ??? using your computer, smartphone, or tablet. Just go to [employer] to get started. Questions? Call . Test Results Laboratory or Other Results This Visit (last charted value for your 02/07/2019 visit) Hematology 02/07/19 06:59:00 WBC: 8.5 K/uL -- Normal range between ( 3.6 and 9.5 ) RBC: 4.75 Million/uL -- Normal range between ( 4.20 and 5.70 ) Hct: 41.9 % -- Normal range between ( 40.1 and 51.0 ) Hgb: 14.2 g/dL -- Normal range between ( 13.5 and 17.3 ) Platelet Count: 281 K/uL -- Normal range between ( 163 and 369 ) MCH: 29.9 pg -- Normal range between ( 25.6 and 32.2 ) MCHC: 33.9 Gram/dL -- Normal range between ( 32.2 and 36.5 ) MCV: 88.2 fL -- Normal range between ( 79.0 and 94.8 ) Sed Rate Auto: 5 mm/Hr -- Normal range between ( 0 and 20 ) ALYC #: 2 K/uL RBC Morphology: Normal RDW: 12.9 % -- Normal range between ( 11.7 and 14.9 ) ANC #: 5 K/uL Toxic Granulation: 1+ [place] Percent Man: 8 % -- Normal range between ( 4 and 5 ) Baso Percent Man: 1 % -- Normal range between ( 0 and 1 ) Neutrophil Percent Man: 64 % -- Normal range between ( 50 and 65 ) Eos Percent Man: 1 % -- Normal range between ( 0 and 3 ) Platelet Ct Estimate: Adequate MPV: 10.1 fL -- Normal range between ( 9.4 and 12.4 ) Lymph Percent Man: 26 % -- Normal range between ( 24 and 44 ) 02/05/19 21:52:00 Slide Review: No Eos %: 1.0 % -- Normal range between ( 0.0 and 7.0 ) [place] #: 0.99 K/uL -- Normal range between ( 0.16 and 1.00 ) Eos #: 0.12 x10(3)/uL -- Normal range between ( 0.00 and 0.80 ) [place] %: 8.7 % -- Normal range between ( 3.0 and 9.0 ) Baso %: 0.4 % -- Normal range between ( 0.0 and 1.5 ) Baso #: 0.05 x10(3)/uL -- Normal range between ( 0.00 and 0.20 ) Neut %: 68.6 % -- Normal range between ( 34.0 and 71.0 ) Neut #: 7.85 K/uL -- Normal range between ( 1.56 and 6.13 ) Lymph %: 20.5 % -- Normal range between ( 19.3 and 53.1 ) Lymph #: 2.34 x10(3)/uL -- Normal range between ( 1.00 and 3.90 ) IG#: 0.09 x10(3)/uL -- Normal range between ( 0.00 and 0.05 ) IG%: 0.80 % -- Normal range between ( 0.00 and 0.60 ) Urinalysis 02/05/19 23:59:00 Urine Nitrite: Negative Urine Leukocyte Esterase: Negative Urine Appearance: Clear Urine Glucose Dipstick: Negative Urine Blood Dipstick: Negative Urine Type: U CleanCatch Urine Urobilinogen Dipstick: 1.0 EU/dL Urine Protein Dipstick: Negative Urine Color: Yellow Urine Ketones Dipstick: Negative Urine pH Dipstick: 5.5 -- Normal range between ( 6.0 and 8.0 ) Urine Bilirubin Dipstick: Negative Urine Specific [place]: 1.016 -- Normal range between ( 1.005 and 1.030 ) General Chemistry 02/09/19 12:05:00 Glucose POC2: 233 mg/dL -- Normal range between ( 70 and 110 ) Device Comment 1: Device Comment 1 02/07/19 06:59:00 Creatinine Level: 1.10 mg/dL -- Normal range between ( 0.70 and 1.30 ) Sodium Level: 137 mmol/L -- Normal range between ( 136 and 146 ) Potassium Level: 3.7 mmol/L -- Normal range between ( 3.5 and 5.1 ) Chloride Level: 103 mmol/L -- Normal range between ( 102 and 112 ) Carbon Dioxide Level: 28 mmol/L -- Normal range between ( 21 and 32 ) Anion Gap: 10 -- Normal range between ( 9 and 20 ) Bilirubin Total: 0.8 mg/dL -- Normal range between ( 0.2 and 1.2 ) Hgb A1C: 8.20 % -- Normal range between ( 4.20 and 6.30 ) A/G Ratio: 1.0 -- Normal range between ( 1.1 and 2.5 ) ALT: 26 Units/Liter -- Normal range between ( 16 and 61 ) AST: 12 Units/Liter -- Normal range between ( 5 and 37 ) Globulin: 3.6 Gram/dL -- Normal range between ( 1.5 and 4.5 ) Alk Phos: 81 Units/Liter -- Normal range between ( 27 and 136 ) eAVG Glucose: 189 mg/dL Bun/Creatinine: 11.8 -- Normal range between ( 8.0 and 20.0 ) Calcium Level: 9.2 mg/dL -- Normal range between ( 8.4 and 10.1 ) CRP: <0.3 mg/dL -- Normal range between ( 0.0 and 0.9 ) eGFR : >60 mL/min/1.73m2 eGFR NonAfrican: >60 mL/min/1.73m2 Glucose Level: 140 mg/dL -- Normal range between ( 74 and 106 ) Blood Urea Nitrogen: 13 mg/dL -- Normal range between ( 7 and 22 ) Protein Total: 7.3 Gram/dL -- Normal range between ( 6.4 and 8.2 ) Albumin Level: 3.7 Gram/dL -- Normal range between ( 3.4 and 5.0 ) 02/05/19 21:52:00 Lipase Level: 111 Units/Liter -- Normal range between ( 73 and 393 ) Cardiac Specific Markers 02/05/19 21:52:00 Troponin I Ultra: <0.015 ng/mL -- Normal range between ( 0.015 and 0.045 ) Lipid Studies 02/07/19 06:59:00 Cholesterol Tot: 135 mg/dL -- Normal range between ( 0 and 199 ) Cholesterol HDL: 48.0 mg/dL Cholesterol LDL Calculation: 68.8 mg/dL -- Normal range between ( 0.0 and 99.0 ) Cholesterol VLDL Calculation: 18.2 mg/dL -- Normal range between ( 5.0 and 40.0 ) Cholesterol/HDL Ratio: 2.8 -- Normal range between ( 0.0 and 3.2 ) Triglyceride: 91 mg/dL -- Normal range between ( 0 and 249 ) LDL/HDL Ratio: 1.4 -- Normal range between ( 0.0 and 3.6 ) Endocrinology 02/07/19 06:59:00 TSH: 2.470 mcInt Units/mL -- Normal range between ( 0.358 and 3.740 ) Toxicology 02/05/19 21:52:00 %Alcohol: <.00 Alcohol: <3 mg/dL Immuno Serology 02/07/19 06:59:00 RPR: Non Reactive Vitamin Chemistry 02/07/19 06:59:00 Folate Level: >20.0 ng/mL -- Normal range between ( 3.10 and 17.50 ) Vitamin B12 Level: 803 pg/mL -- Normal range between ( 193 and 986 ) Computed Tomography 02/05/19 23:22:26 CT Brain Perfusion: CT Brain Perfusion CTA Head: CTA Head CTA Neck: CTA Neck 02/05/19 20:29:50 CT Head WO: CT Head WO Magnetic Resonance Imaging 02/06/19 12:11:06 MRI Brain WO: MRI Brain WO Echo 02/08/19 08:32:33 EC 2D Echo LTD / Follow Up: EC 2D Echo LTD / Follow Up 02/06/19 07:56:56 EC 2D Echo Complete W Bubble Study: EC 2D Echo Complete W Bubble Study Vascular Ultrasound 02/07/19 09:00:16 VL Carotid Duplex BILAT: VL Carotid Duplex BILAT Patient Name:ELINADEION I have received and understand this information and was given the opportunity to ask questions. Patient/Post Office Clerk Name: Patient/Post Office Clerk Signature: Relationship to Patient: Clinician/Hospital Post Office Clerk Signature: Date: Electronically signed by Brittany, [facility] Conversion Revenue Settlements Administrator Cerner at 01/24/2023 10:27 AM CDT documented in this encounter Plan of Treatment Not on file documented as of this encounter Visit Diagnoses Not on filedocumented in this encounter Care Teams Crystal Grinder Relationship Specialty Start Date End Date Marielos Amaral, EXTRACT PULLER [address] [id number] PCP - General Nurse Practitioner 08/18/23 documented as of this encounter
--- OUTSIDE RECORDS SUMMARY | 2025-05-14 20:33 | XMS_ITS | Encounter Summary ---
Author Organization [facility] ([place], [place], [place], [place]) Address [address] [place] [address] Care Team Providers Care Mobile Pet Groomer Name Role Phone Marielos Amaral KAYE Primary Care Provider Encounter Details Date Type Department Care Team (Late st Contact Info) Description 04/14/2019 Transcribed Document [facility] [place] Family Medicine [address] [place] [address] ProviderHaroldo MD [address] [place] [address] Social History Tobacco Use Types Packs/Day Years Used Date Smoking Tobacco: Never Assessed Sex and Gender Information Value Date Recorded Sex Assigned at Not on file Legal Sex Male 3:45 PM CDT Gender Identity Not on file Sexual Orientation Not on file documented as of this encounter Miscellaneous Notes * Cerner Conversion Note - Haroldo ProviderMD - 04/14/2019 2:22 PM CDT Pre Procedure Adult Entered On: 04/14/2019 14:29 EDT Performed On: 04/14/2019 14:22 EDT by MIKO GALLAGHER RN Height and Weight, Clinical Dosing Height Source : Stated Height Entry Format : [place] Height, Feet : 5 ft(Converted to: 152 cm, 60 Inch) Height, Inches : 9 Inch(Converted to: 0 ft 9 Inch, 22.86 cm) Clinical Height : 175.26 cm Weight Source : Standing scale Weight Entry Format : [place] Clinical Dosing Weight : 79.66 kg Weight, Pounds : 175 lb Weight, Ounces : 4 oz Body Surface Area (BSA) : 1.95 m2 Body Mass Index : 25.9 kg/m2 (HI) [place] Body Weight : 70 kg MIKO GALLAGHER RN - 04/14/2019 14:22 EDT Health Histories Smoking Status : Former smoker, quit more than 30 days ago Smokeless Tobacco Status : Smokeless tobacco user within last 30 days Desires Tobacco Cessation Medication : No Reason for No Tobacco Cessation Medication : Other: Patient has already discussed this issue with primary care physician. MIKO GALLAGHER RN - 04/14/2019 14:22 EDT Social History (As Of: 04/14/2019 14:29:21 EDT) Tobacco: Use in Last 12 Months: Cigarettes. [...] 04/14/2019 14:22:28 EDT by MIKO GALLAGHER RN) Infectious Disease History Infectious Disease History : Chicken pox/Shingles, Influenza, Measles, Mumps, Rubella Isolation Needed : Standard Fever/Chills Last 48 Hours : No Travel To Regions with Travel Advisories : No Travel Outside [place] Within Last 30 Days : No Contact With Traveler to Advisory Region : No Tuberculosis Symptoms : None MIKO GALLAGHER RN - 04/14/2019 14:22 EDT Anesthesia/Transfusion History Family History of Anesthesia Reaction : No prior transfusion(s) Transfusion History : Prior anesthesia without reaction Family History of Anesthesia Reaction : None Intubation History : Unknown MIKO GALLAGHER RN - 04/14/2019 14:22 EDT Functional Assessment Living Situation : Home Patient Lives With : Spouse Current Home Treatments : Blood glucose monitoring, CPAP MIKO GALLAGHER RN - 04/14/2019 14:22 EDT Psychosocial History Chronic/Terminal Illness w/Freq Visits : No Do You Have a History of the Following? : Patient denies history Currently in Unsafe Situation : No Tried to Harm Yourself in the Past? : No Thoughts of Harming/Killing Yourself : No MIKO GALLAGHER RN - 04/14/2019 14:22 EDT Advance Directive Patient has Advance Directive *Q : Yes, Advance Directive not with the patient Advance Directive Type : Living will Copy Advance Directive Verified/on Chart : MIKO Putnam RN - 04/14/2019 14:22 EDT Teaching/Learning Assessment Barriers To Learning : None evident Individuals Taught : Patient Readiness to Learn : Cooperative Highest Level of Education : High school Baseline Knowledge of Topic : Good Readiness to Learn : Explanation Learning Style Preferences Patient : Verbal explanation Learning Style Preferences Family : Verbal explanation MIKO GALLAGHER RN - 04/14/2019 14:22 EDT General Info Preferred Name : Clint Arrived From : Home Mode of Arrival on Unit : Ambulatory Legal Guardian : Daughter Legal Guardian : No Support Person/Patient Jet Pilot : Yes Support Person/Pt Rep Name : Enriqueta - Contact Password : peanut Support Person/Pt Rep Contact Information : [phone] Want Family/Rep/Phys Notified of Admit : Yes Name/Contact Info Fam/Rep Notified Adm : Carla Chaudhary Name/Contact Info Physician Notified Adm : Axel Hamlin Emergency Contact #1 : Carla Chaudhary Emergency Contact #1 Emergency Contact #1 Relationship : Daughter Emergency Contact #2 : None Emergency Contact #2 Phone Number : None Emergency Contact #2 Relationship : None Information Obtained From : Patient Primary Language : Austrian Communication Barrier : None Objects to Sharing Info w Family : No MIKO GALLAGHER RN - 04/14/2019 14:22 EDT Sleep Apnea Risk Assmt BiPAP/CPAP Ordered for Home Use : Yes Hx of Obstructive Sleep Apnea Diagnosis : Yes BiPAP/CPAP Used at Home : Yes Age over 50 Years Old : Yes Gender Male : Yes MIKO GALLAGHER RN - 04/14/2019 14:22 EDT Unruly Scale Unruly Sensory Perception : No impairment Unruly Moisture : Rarely moist Unruly Activity : Walks frequently Unruly Mobility : No limitation Unruly Nutrition : Adequate Unruly Friction and Shear : No apparent problem Unruly Score : 22 MIKO GALLAGHER RN - 04/14/2019 14:22 EDT Pain Assessment Pain Assessment : Initial assessment Pain Scale Goal : 2 Pain Scale Used : 0-10 Scale MIKO GALLAGHER RN - 04/14/2019 14:22 EDT Fall Risk Scales ABCs Fall Injury Risk Identification : None STARK Hx Falls Immediate/Within 3 Months : No Stark Secondary Diagnosis : No STARK Use of Ambulatory Aid : None STARK IV Therapy or IV Access : Yes Stark Gait/Transferring : Normal, bedrest, immobile Stark Mental Status : Oriented to own ability Stark Fall Risk Score : 20 STARK Fall Scale Risk Level : 0-24 Low Risk [place] Fall Interventions : Adequate lighting, Bed in low position, Call device within reach, Frequent orientation to call device, Frequent orientation to surroundings, Personal items within reach, Reinforced to call for assistance before getting out of bed, Room free of clutter/spills, Upper side-rails up, Wheels locked MIKO GALLAGHER RN - 04/14/2019 14:22 EDT Valuables and Belongings Valuables and Belongings : Clothing, Jewelry, Personal devices Clothing : Common streetwear Clothing Disposition : Bedside, With family, With patient Personal Device Disposition : Bedside, With family, With patient Jewelry : Necklace, Ring Jewelry Disposition : Bedside, With family, With patient Personal Devices : Glasses MIKO GALLAGHER RN - 04/14/2019 14:22 EDT Pain Scale Intensity : 0 MIKO GALLAGHER RN - 04/14/2019 14:22 EDT Image 4 - Images currently included in the form version of this document have not been included in the text rendition version of the form. Electronically signed by Brittany [facility] Conversion Weed Control Inspector Cerner at 01/24/2023 10:19 AM CDT documented in this encounter Plan of Treatment Not on file documented as of this encounter Visit Diagnoses Not on filedocumented in this encounter Care Teams Mobile Pet Groomer Relationship Specialty Start Date End Date Marielos Amaral, SURVEY SUPERVISOR [address] [place] [address] PCP - General Nurse Practitioner 08/18/23 documented as of this encounter
--- OUTSIDE RECORDS SUMMARY | 2025-05-14 20:33 | XMS_ITS | Encounter Summary ---
Author Organization [employer] ([place], [place], [place]) Address [address] [place] [address] Care Team Providers Care Medical Investigator Name Role Phone Munir Marielos RESTREPO Primary Care Provider Encounter Details Date Type Department Care Team (Late st Contact Info) Description 04/22/2022 Transcribed Document [facility] [place] Family Medicine [address] [place] [address] ProviderHaroldo MD [address] [place] [address] Social History Tobacco Use Types [...] Do you speak a language other than [place] Islander at [facility]? Yes 10/30/2024 Do you want help with [...] Cerner Conversion Note - Historical ProviderMD - 04/22/2022 1:36 PM CDT Patient: DEION ANTOINE Age: 71 Years Sex: Male : 1950 Chief Complaint Pt presents via EMS following a syncopal episode. Reprots weakness. Hypotensive upon ED arrival. BP upon arrival was 60 systolic. Received 500mls NS. Hx of CABG and stents. Takes Eliquis. Denies head, neck, ot back pain. 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 Primary Care Provider KATELYN MCKEON [facility] History of Present Illness Mr. 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 Patient's and daughter are at the bedside. Patient and family report he has chronic right-sided weakness, though this is gotten progressively worse over the last 4 months or so. Otherwise, patient feels well though endorses weakness. Patient denies having fever/chills, SOA, cough, chest pain, palpitations, n/v/d, abdominal pain, and dysuria. Discussed patient's elevated kidney function and they endorse that his PCP Dr. Melody Amaral also told him that his kidney function was worse recently, though they cannot remember exactly what his creatinine was at that time. Patient reports he is urinating frequently, without dysuria. Upon arrival to our facility patient is hemodynamically stable with orthostatic vital signs consistently 80s/60s and unchanged with positional changes. Significant labs show sodium 124 (when corrected for glucose Na 128), CO2 15, creatinine 7.8, glucose 325 to 252, hemoglobin 10.3. Urinalysis pending. CT head unremarkable for acute findings, chronic small vessel disease noted. CT C-spine unremarkable for acute findings, There is loss of the disc space at C5-C6 with a mild posterior osteophyte. In the ED patient was given pain meds, antiemetics, and 1L NS. Patient is being admitted for acute renal failure/metabolic acidosis likely due to dehydration and overdiuresis. Nephrology has been consulted. Urinalysis, renal ultrasound, CT abdomen pelvis pending. Of note, patient states he has a living will with his as POA in the event he cannot make his own medical decisions and he desires to be DNR full treat. at bedside agrees these are patient's wishes as they have discussed this previously. Review of Systems Constitutional: [No fevers, chills, sweats] Eye: [No recent visual problems, eye discharge, eye pain, redness] HEENT: [No ear pain, nasal congestion, sore throat, voice changes] Respiratory: [No shortness of breath, cough, pain on breathing, sputum production] Cardiovascular: [No Chest pain, palpitations, syncope, shortness of breath while laying flat] Gastrointestinal: [No nausea, vomiting, diarrhea, constipation] Genitourinary: [No hematuria, dysuria, incontinence] Rober/Lymph: [Negative for bruising tendency, swollen lymph glands, nosebleeds, history of anticoagulation] Endocrine: [Negative for excessive thirst, excessive hunger, excessive urination, heat or cold intolerance] Musculoskeletal: [No back pain, neck pain, joint pain, muscle pain, decreased range of motion] Integumentary: [No rash, pruritus, abrasions] Neurologic: [No weakness, numbness, frequent headaches, tremors, blackouts] Psychiatric: [No anxiety, depression, mood changes, hallucinations] Vital Signs T: 36.6 ??C HR: 70(Peripheral) RR: 18 BP: 102/52 BP: 89/569(Sitting) BP: 82/48(Standing) BP: 83/46(Supine) SpO2: 100% HT: 175.26 cm WT: 85 kg BMI: 27.7 Oxygen Settings (Last) Oxygen Therapy Mode: Room air (04/22/22 09:15:00) Physical Exam General: [Alert and oriented, well nourished, no acute distress]. Neurologic: [Awake, alert, and oriented, CN I-XII intact, equal youth coordinator and arm strength bilaterally without unilateral weakness appreciated, right leg weaker compared to left]. Eye: [Normal conjunctiva]. HENT: [Normocephalic, normal hearing, moist oral mucosa, no scleral icterus]. Neck: [Supple, no JVD]. Lungs: [Clear to auscultation, non-labored respiration]. Heart: [Normal rate, regular rhythm, no murmur, or edema]. Abdomen: [Soft, non-tender, non-distended, normal bowel sounds]. Musculoskeletal: [Patient laying in bed without ROM tested]. Skin: [Skin is warm, dry and pink, no rashes]. Psychiatric: [Cooperative, appropriate mood and affect]. Assessment/Plan Acute on chronic renal failure, POA Metabolic acidosis due to renal failure -Renal failure likely due to dehydration and overdiuresis -Hold home lisinopril, Bumex, and spironolactone -Received 1 L IVF in ED -CT abdomen pelvis pending -Renal ultrasound pending -Urine studies pending -Repeat BMP pending -Nephrology consulted, appreciate recommendations, started bicarb drip UTI -UA noted, UA pending -Will give Rocephin for now while awaiting culture results (allergy of hives to penicillin) Hyponatremia -Element of pseudohyponatremia, when corrected for glucose sodium 128 on admission, trend BMP for next 24 hours -IVF per nephrology -Nephrology following, appreciate recommendations History of multiple CVAs, residual right-sided weakness -CT head unremarkable for acute findings, chronic small vessel disease noted. Chronic right neck pain -CT C-spine unremarkable for acute findings, There is loss of the disc space at C5-C6 with a mild posterior osteophyte. -Follow-up outpatient Dilated cardiomyopathy EF 37% CAD status post CABG x4 many years ago -Lexiscan myocardial perfusion study November 2020 reviewed History of dilated cardiomyopathy, with an ejection fraction of 37%, of note, however, no clear reversibility to suggest ischemia. -Holding Aldactone, Bumex, and lisinopril with current LIANE as above -Continue beta-cholo if blood pressure tolerates History of atrial fibrillation -Currently NSR, continue home metoprolol, amiodarone, and Eliquis (renal dosing) -Monitor on telemetry Hypothyroidism -TSH pending, continue home levothyroxine Type 2 diabetes with hyperglycemia -Hold home Tinopemaroyce, patient states PCP stopped metformin sometime ago, agree patient should never be on metformin -HA1C pending -Glucose 325 on arrival, proving to 250s -We will start Lantus 5 units daily, sliding scale insulin, diabetic diet, titrate as needed DVT prophylaxis: Jesse DNR full treat, patient has living will, is POA in the event he cannot make his own medical decisions Dispo: Anticipate greater than 48 hours inpatient stay with acute renal failure. Appreciate nephrology recommendations. Hope to discharge back home with once medically ready. Time spent: 60 minutes. IChristiane PA-C, personally evaluated the patient forming the plan of care above. Dr. Bell available to answer patient plan of care questions and evaluate the patient if needed. Problem List/Past Medical History Ongoing Acute cerebrovascular accident (CVA) Angina Atrial fibrillation CAD - Coronary artery disease Cardiomyopathy Coronary artery disease Diabetes mellitus type II Enlarged prostate GERD - Gastro-esophageal reflux disease Heart failure Heart murmur History of obstructive sleep apnea HLD - Hyperlipidemia HTN - Hypertension Hyperlipidemia Hypertension Impaired vision Migraine Stented coronary artery Type 2 diabetes mellitus Procedure/Surgical History ULTRASONOGRAPHY OF HEART WITH AORTA (10/15/2019), INTRODUCE OTH THROMBOLYTIC IN PERIPH VEIN, PERC (10/14/2019), 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), 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), DESTRUCTION OF ESOPHAGOGASTRIC JUNCTION, ENDO (01/20/2019), INTRODUCTION OF SERUM/TOX/VACCINE INTO MUSCLE, PERC APPROACH (02/16/2017), BYPASS 1 COR ART FROM L INT MAMMARY W AUTOL ART, OPEN (02/10/2017), BYPASS 3 COR ART FROM AORTA WITH AUTOL VN, OPEN APPROACH (02/10/2017), CABG x 4 - Coronary artery bypass grafts x 4 (02/10/2017), EXCISION OF LEFT GREATER SAPHENOUS VEIN, PERC ENDO APPROACH (02/10/2017), EXCISION OF RIGHT GREATER SAPHENOUS VEIN, PERC ENDO APPROACH (02/10/2017), FLUOROSCOPY OF LEFT HEART USING LOW OSMOLAR CONTRAST (02/07/2017), FLUOROSCOPY OF MULT COR ART USING L OSM CONTRAST (02/07/2017), MEASURE OF CARDIAC SAMPL & PRESSURE, L HEART, PERC APPROACH (02/07/2017), Appendectomy, Cardiac catheterization, Cholecystectomy;., Coronary stents, EGD - Esophagogastroduodenoscopy, hernia repair, left arm surgery, Tonsillectomy. Home Medications (16) Active amiodarone 200 mg oral tablet 200 mg = 1 Tab, Oral, Daily atorvastatin 40 mg oral tablet 40 mg = 1 Tab, Oral, At Bedtime Bumex 1 mg, Oral, Daily Eliquis 5 mg oral tablet 5 mg = 1 Tab, Oral, BID Flomax 0.4 mg oral capsule 0.4 mg = 1 Cap, Oral, Daily glimepiride 4 mg oral tablet 4 mg = 1 Tab, Oral, BID Januvia 100 mg oral tablet 100 mg = 1 Tab, Oral, BID lisinopril 40 mg oral tablet 40 mg = 1 Tab, Oral, Daily metFORMIN 1000 mg oral tablet 1,000 mg = 1 Tab, Oral, BID Metoprolol Succinate ER 50 mg oral tablet, extended release 50 mg = 1 Tab, Oral, Daily nitroglycerin omeprazole 40 mg oral delayed release capsule 40 mg = 1 Cap, Oral, Daily Synthroid 100 mcg (0.1 mg) oral tablet 100 mcg = 1 Tab, Oral, Daily Tylenol 325 mg oral tablet 650 mg = 2 Tab, PRN, Oral, Q4H Vitamin B12 1000 mcg oral tablet 1,000 mcg = 1 Tab, Oral, Daily Vitamin D3 1000 intl units oral tablet 1,000 Int Units = 1 Tab, Oral, Daily Allergies Mucinex amoxicillin penicillin Social History Alcohol Alcohol Use History No. Date/Time of Last Drink: former. Alcohol Use History Yes. Date/Time of Last Drink: Quit in 2008. Use in Last 12 Months: No. Nutrition/Health Diabetic, Caffeine intake amount: 2 cups a day.. Substance Abuse Drug Use Hx: No. Drug Use Hx: No. Use in Last 12 Months: No. Tobacco Former smoker, quit more than 30 days ago Smoking Status. Smokeless tobacco user within last 30 days Smokeless Tobacco Status. Snuff/Dip Smokeless Tobacco Use History. Packs/Tins Daily: .25. Last Used: quit cigarettes. Former smoker, quit more than 30 days [...] Years of Use: 46. Packs/Tins Daily: .5. Family History Patient was adopted Diagnostic Results Radiology Results (Last 48 hours) [id number] -- 04/22/2022 12:30 CR Chest 1 Vw [...] and dictated by Dr. Artem Mcdermott.Transcribed by Carolnie Gunderson PA-C.I have personally viewed, interpreted and [...] by Dr. Doe Herbert.Transcribed by Faustina Meraz PA-C. Lab Results Test Name Test Result Date/Time Sodium Level 124 mmol/L (Low) 04/22/2022 09:19 EDT Potassium Level 5.0 mmol/L 04/22/2022 09:19 EDT Chloride Level 96 mmol/L (Low) 04/22/2022 09:19 EDT Carbon Dioxide Level 15 mmol/L (Low) 04/22/2022 09:19 EDT Anion Gap 18 04/22/2022 09:19 EDT Glucose Level 325 mg/dL (High) 04/22/2022 09:19 EDT Blood Urea Nitrogen 94 mg/dL (Critical) 04/22/2022 09:19 EDT Creatinine Level 7.80 mg/dL (High) 04/22/2022 09:19 EDT eGFR 8 mL/min/1.73m2 (Low) 04/22/2022 09:19 EDT eGFR NonAfrican 7 mL/min/1.73m2 (Low) 04/22/2022 09:19 EDT Bun/Creatinine 12.1 04/22/2022 09:19 EDT Calcium Level 9.2 mg/dL 04/22/2022 09:19 EDT Device Comment 1 Notified Nurse RBV 04/22/2022 13:25 EDT Glucose POC2 252 mg/dL (High) 04/22/2022 13:25 EDT WBC 7.6 K/uL 04/22/2022 09:19 EDT RBC 3.38 Million/uL (Low) 04/22/2022 09:19 EDT Hgb 10.3 g/dL (Low) 04/22/2022 09:19 EDT Hct 30.2 % (Low) 04/22/2022 09:19 EDT MCV 89.3 fL 04/22/2022 09:19 EDT MCH 30.5 pg 04/22/2022 09:19 EDT MCHC 34.1 Gram/dL 04/22/2022 09:19 EDT Platelet Count 246 K/uL 04/22/2022 09:19 EDT MPV 10.9 fL 04/22/2022 09:19 EDT RDW 12.9 % 04/22/2022 09:19 EDT Neut % 78.7 % (High) 04/22/2022 09:19 EDT Neut # 5.97 K/uL 04/22/2022 09:19 EDT Lymph % 9.8 % (Low) 04/22/2022 09:19 EDT Lymph # 0.74 x10(3)/uL (Low) 04/22/2022 09:19 EDT Clinch % 10.0 % (High) 04/22/2022 09:19 EDT Clinch # 0.76 K/uL 04/22/2022 09:19 EDT Eos % 0.3 % 04/22/2022 09:19 EDT Eos # 0.02 x10(3)/uL 04/22/2022 09:19 EDT Baso % 0.3 % 04/22/2022 09:19 EDT Baso # 0.02 x10(3)/uL 04/22/2022 09:19 EDT Slide Review No 04/22/2022 09:19 EDT IG# 0.07 x10(3)/uL (High) 04/22/2022 09:19 EDT IG% 0.90 % (High) 04/22/2022 09:19 EDT Additional Documentation Code Status No Code Status Order on Record documented in this encounter Plan of Treatment Not on file documented as of this encounter Visit Diagnoses Not on filedocumented in this encounter Care Teams Medical Investigator Relationship Specialty Start Date End Date Marielos Amaral, CARDIAC REHABILITATION SPECIALIST [address] [address] PCP - General Nurse Practitioner 08/18/23 documented as of this encounter
--- OUTSIDE RECORDS SUMMARY | 2025-05-14 20:33 | XMS_ITS | Encounter Summary ---
Author Organization [employer] ([place], [place], [place], [place]) Address [address] [place] [address] Care Team Providers Care Vegetable Grader Name Role Phone Munir Marielos RESTREOP Primary Care Provider Encounter Details Date Type Department Care Team (Late st Contact Info) Description 04/22/2022 Transcribed Document [facility] Family Medicine [address] [place] [address] ProviderHaroldo MD [address] [place] [address] Social History Tobacco Use Types [...] Do you speak a language other than [place]itian at [facility]? Yes 10/30/2024 Do you want [...] Conversion Note - Historical Provider, - 04/22/2022 12:36 PM CDT Patient: ZACKARY ANTOINE Age: 71 years Sex: Male : 1950 Associated Diagnoses: None Author: PARAM WEBBER MD 1- LIANE - Oliguric - Baseline Scr 1.3 in past. UA bland in past. On Lisinopril, Bumex and Aldactone at home. 2- Metabolic acidosis 3- Hyponatremia - pseudohyponatremia from hyperglycemia 4- CAD s/p CABG 5- DM 6- HTN 7- Generalized weakness. Plan: - Bicarb drip - Hold lisinopril, Diuretics and Aldactone for now. - Monitor I/O - Avoid nephrotoxic agents. - renal diet. - Urine lytes - Urine and serum osmolality - Uric acid level. - UA - UPCR - Renal ultrasound - No emergent need of CABLE FERRY OPERATOR. Will follow. Thank you very much for the consult. Will follow along. [id number] Electronically signed by Brittany [facility] Conversion Manufacturing Director Pennyner at 01/24/2023 10:25 AM CDT documented in this encounter Plan of Treatment Not on file documented as of this encounter Visit Diagnoses Not on filedocumented in this encounter Care Teams Vegetable Grader Relationship Specialty Start Date End Date Marielos Amaral, RECREATION SPECIALIST [address] [address] PCP - General Nurse Practitioner 08/18/23 documented as of this encounter
--- OUTSIDE RECORDS SUMMARY | 2025-05-14 20:33 | XMS_ITS | Encounter Summary ---
Author Organization [employer] ([place], [place], [place], [place]) Address [address] [place] [address] Care Team Providers Care Latin American Studies Director Name Role Phone Munir Marielos RESTREPO Primary Care Provider Encounter Details Date Type Department Care Team (Late st Contact Info) Description 04/22/2022 Transcribed Document [facility] [place] [address] [place] [address] ProviderHaroldo MD [address] [place] [address] Social History Tobacco Use Types [...] Do you speak a language other than [place] at [facility]? Yes 10/30/2024 Do you want [...] Provider, - 04/22/2022 1:38 PM CDT Evaluation, Occupational Therapy Entered On: 04/23/2022 13:50 EDT Performed On: 04/23/2022 10:00 EDT by AGGIE LOREDO OTR/Melvin General Information, OT Visit Type, OT [...] Decreased I with ADLs due to weakness Onset of Problem, OT : 04/23/2022 EDT Admission Date : 04/22/2022 12:30 Co-treated by, OT : Physical Therapist Personal Devices : Personal Devices No Devices Recorded Assistive Devices : Assistive Devices No Devices Recorded General Information Comment, OT : Pt is a 71 yo M, admitted due to syncopal episode, acute on chronic renal failure, and UTI. H/o: multiple CVAs with residual R sided weakness, chronic R neck and shoulder pain AGGIE LOREDO OTR/L - 04/23/2022 13:39 EDT General Status Patient Received Status : Supine in bed Treatment Start Time : 04/23/2022 9:40 EDT Patient Left Status : Up in chair, RN/PCT informed, Family/Visitors at bedside, Communication board completed, All needs met and within reach RN/PCT Informed Comment : LUIS moreno tx Treatment End Time : 04/23/2022 10:00 EDT Treatment Time : 20 Minute(s) Actual Treatment Time : 25 Minute(s) (Comment: Time includes chart review, collaboration with RN and clinical reasoning. [AGGIE LOREDO OTR/L - 04/23/2022 13:39 EDT] ) AGGIE LOREDO OTR/L - 04/23/2022 13:39 EDT History and Environment, OT Living Situation, Therapy : Home Patient Lives With : Spouse Persons Assisting Patient at Home : Alone Persons Providing Information : Patient Home Equipment, Therapy : Cane, Shower Equipment, Walker Home Setup : Basement, One story Bedroom Location : Main level Stairs : Yes Stair Location(s) : Outside Outside Stairs, Number of Steps : 4 Railing Outside : Yes Outside Railing Position : Bilateral AGGIE LOREDO OTR/L - 04/23/2022 13:39 EDT Prior LOF Bathing, OT : Independent Prior LOF Bed Mobility : Independent Prior LOF Upper Body Dressing, OT : Independent Prior LOF Lower Body Dressing, OT : Independent Prior LOF Toileting : Independent Prior LOF Transfer : Independent Prior LOF Grooming, OT : Independent Prior LOF for IADLs, OT : Independent AGGIE LOREDO OTR/Melvin - 04/23/2022 13:39 EDT Prior LOF Assist with ADL Comment : Pt states he ambulates with a cane. AGGIE LOREDO OTR/L - 04/23/2022 13:39 EDT Upper Extremity Upper Extremity Dominance : Right Right UE Active ROM : WFL Right UE Strength : WFL Left UE Active ROM : WFL Left UE Strength : WFL AGGIE LOREDO OTR/Melvin - 04/23/2022 13:39 EDT Self Care/Home Management, OT Self Feeding Assist Level, OT : Independent, modified Grooming Assist Level, OT : Supervision or set-up Bathing Assist Level, OT : Assist, moderate Upper Body Dressing Assist Level, OT : Assist, minimal Lower Body Dressing Assist Level, OT : Assist, maximal Toileting Assist Level : Assist, moderate Toilet Transfer Assist Level : Assist, minimal AGGIE LOREDO OTR/Melvin [place] 04/23/2022 13:39 EDT Functional Mobility Mobility Grid Supine to Sit : Rehab Minimal assistance Sit to Stand : Supervision/set-up Bed to Chair : Rehab Minimal assistance Stand to Sit : Rehab Minimal assistance AGGIE LOREDO OTR/Melvin - 04/23/2022 13:39 EDT Cognition Assessment, OT Orientation : Oriented x 4 AGGIE LOREDO OTR/Melvin [place] 04/23/2022 13:39 EDT Education OT Occupational Therapy Education Grid Activity of Daily Living Training : Needs further teaching Functional Mobility Training : Needs further teaching Role of Occupational Therapy : Verbalizes understanding AGGIE LOREDO OTR/Melvin [place] 04/23/2022 13:39 EDT Indication Assessment, OT Occupational Therapy Indicated : Yes Problem List, OT : Impaired, bed mobility, Impaired, activities daily living, Impaired, endurance tolerance, Impaired functional mobility, Impaired, strength, Impaired, transfers AGGIE LOREDO OTR/Melvin [place] 04/23/2022 13:39 EDT Plan of Care, OT OT Tx Plan/Goals Established w Patient : Yes OT Frequency Rehab : Five days per week OT Duration Rehab : Fourteen days OT Treatments Planned : Activities of daily living, Functional mobility training, Safety education, Therapeutic activities, Therapeutic exercises AGGIE LOREDO OTR/Melvin [place] 04/23/2022 13:39 EDT Marketing Services Coordinator Goals, OT Grooming LTG Grid Goal #1 Activity : Grooming Assist : Independent, modified Date to Meet : 05/07/2022 EDT Goal Status : Initial goal Comment : standing at sink AGGIE LOREDO OTR/Melvin [place] 04/23/2022 13:39 EDT Dressing, Lower Body LTG Grid Goal #1 Activity : Dressing, Lower Body Assist : Independent, modified Date to Meet : 05/07/2022 EDT Goal Status : Initial goal AGGIE LOREDO OTR/Melvin [place] 04/23/2022 13:39 EDT Toilet Transfer LTG Grid Goal #1 Activity : Toilet Transfer, Ambulatory Assist : Independent, modified Date to Meet : 05/07/2022 EDT Goal Status : Initial goal AGGIE LOREDO OTR/Melvin [place] 04/23/2022 13:39 EDT Treatment Note Subjective Comment : Pt agreeable to therapy evaluation. Patient's Response to Treatment : Fair. Pts BP seated EOB: 90/51 BP in standin/45 RN notified of pts BP. Additional Objective Information : Pt A&O x4. Able to transfer supine to sit EOB with min A. BP low during session but pt did not report dizziness or feeling light headed EOB or in standing. B UE AROM and strength WFL. Pt required max A to don socks. Stood with S. Ambulated to doorway and back to chair using RW with min A. Transferred to chair with min A. Pt left up in chair, call light within reach. Assessment : Patient would benefit from skilled OT during hospital stay to increase independence and safety with ADLs and functional mobility. Plan for Treatment : See goals. AGGIE LOREDO OTR/L - 04/23/2022 13:39 EDT Pain Assessment Pain Scaled Used : 0-10 Pain scale Pain Score Pre-Intervention : 0 AGGIE LOREDO OTR/L - 04/23/2022 13:39 EDT Image 1 - Images currently included in the form version of this document have not been included in the text rendition version of the form. Anticipated Discharge Needs, OT/PT Anticipated Discharge to : Home, with family care AGGIE LOREDO OTR/L - 04/23/2022 13:39 EDT [facility] OT Charges OT Ther Activities Ea 15 Min : 1 OT Eval Low Complexity : 1 AGGIE LOREDO OTR/L - 04/23/2022 13:39 EDT Electronically signed by Brittany [facility] Conversion Occupational Therapist Aide Cerner at 01/24/2023 10:36 AM CDT documented in this encounter Plan of Treatment Not on file documented as of this encounter Visit Diagnoses Not on filedocumented in this encounter Care Teams Latin American Studies Director Relationship Specialty Start Date End Date Marielos Amaral, SENIOR UI DESIGNER [address] [place] [address] PCP - General Nurse Practitioner 08/18/23 documented as of this encounter
--- OUTSIDE RECORDS SUMMARY | 2025-05-14 20:33 | XMS_ITS | Encounter Summary ---
Author Organization [employer] ([place], [place], [place], [place]) Address [address] [place] [address] Care Team Providers Care Energy Advisor Name Role Phone Marielos Amaral APRN Primary Care Provider Encounter Details Date Type Department Care Team (Late st Contact Info) Description 02/08/[address] [facility] [address] [id number] Fidencio Tolliver MD [address] [place] [address] [address] [place] [address] Social History Tobacco Use Types Packs/Day Years Used Date Smoking Tobacco: Never Assessed Sex and Gender Information Value Date Recorded Sex Assigned at Not on file Legal Sex Male 3:45 PM CDT Gender Identity Not on file Sexual Orientation Not on file documented as of this encounter Miscellaneous Notes * Cerner Conversion Note - Fidencio Tolliver MD - 02/08/2019 12:55 PM EDT Patient: ZACKARY ANTOINE Age: 68 years Sex: Male : 1950 Associated Diagnoses: None Author: FIDENCIO TOLLIVER MD-INT Subjective PCP: Dr. Axel Hamlin DOA: 02/05/2019 DOD: HPI: Admitted with right sided weakness and uncontrolled movements with with a known history of coronary artery disease and multiple risk factors. CODE STATUS: Full code CONSULTS: [facility] cardiology WORKUP / PROCEDURES: CT [...] approximately 50% stenosis of theproximal basilar artery. refund specialist show mild stenosis proximally. IMPRESSION: 1. 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 Anterior circulation intact.3. Mild bilateral ARCHEOLOGIST CLASSICAL disease. This study was performed using dose [...] disease. No masses or thrombi are seen. HOSPITAL FOLLOWUP: 02/06 Patient is awake and [...] pain and no shortness of breath, afebrile. Health Status Allergies: Allergic Reactions (Selected) Severity Not Documented Amoxicillin- No reactions were documented. Mucinex- No reactions were documented. Current medications: (Selected) Inpatient Medications Ordered Colace: 100 mg, Oral, BID Eliquis: 5 mg, Oral, [id number] Flomax: 0.4 mg, Oral, Daily MiraLax: 17 [...] PRN: Nausea amiodarone: 200 mg, Oral, Daily aspirin: 325 mg, Oral, Daily atorvastatin: 40 mg, Oral, At Bedtime insulin lispro sliding scale: Scale A:, SubCutaneous, AC and at Bedtime lisinopril: 10 mg, Oral, Daily Documented Medications Documented Flomax 0.4 mg oral capsule: 1 Cap, Oral, Daily, 0 Refill(s) Januvia 100 mg oral tablet: 100 mg, Oral, Daily, 0 Refill(s) amiodarone 200 mg oral tablet: 1 Tab, Oral, Daily, 30 Tab, 0 Refill(s) aspirin 81 mg oral delayed release tablet: 1 Tab, Oral, Daily, 0 Refill(s) atorvastatin 40 mg oral tablet: 1 Tab, Oral, At Bedtime, 0 Refill(s) glimepiride 2 mg oral tablet: 2 Tab, Oral, BID, 0 Refill(s) lisinopril 10 mg oral tablet: 1 Tab, Oral, Daily, 0 Refill(s) metFORMIN 1000 mg oral tablet: 1 Tab, Oral, BID, 60 Tab, 0 Refill(s) metoprolol succinate 25 mg oral capsule, extended release: 1 Cap, Oral, Daily, 0 Refill(s) omeprazole 40 mg oral delayed release capsule: 1 Cap, Oral, Daily, before a meal, 30 Cap, 0 Refill(s), Home Medications (10) Active amiodarone 200 mg oral tablet 200 mg = 1 Tab, Oral, Daily aspirin 81 mg oral delayed release tablet 81 mg = 1 Tab, Oral, Daily atorvastatin 40 mg oral tablet 40 mg = 1 Tab, Oral, At Bedtime Flomax 0.4 mg oral capsule 0.4 mg = 1 Cap, Oral, Daily glimepiride 2 mg oral tablet 4 mg = 2 Tab, Oral, BID Januvia 100 mg oral tablet 100 mg, Oral, Daily lisinopril 10 mg oral tablet 10 mg = 1 Tab, Oral, Daily metFORMIN 1000 mg oral tablet 1,000 mg = 1 Tab, Oral, BID metoprolol succinate 25 mg oral capsule, extended release 25 mg = 1 Cap, Oral, Daily omeprazole 40 mg oral delayed release capsule 40 mg = 1 Cap, Oral, Daily Problem list: Active Problems (13) Angina Coronary artery disease Diabetes mellitus type II Enlarged prostate GERD - Gastro-esophageal reflux disease Heart failure Heart murmur History of obstructive sleep apnea Hyperlipidemia Hypertension Impaired vision Migraine Stented coronary artery Objective VS/Measurements Vitals Signs (last 24 hrs) Last Charted Minimum Maximum Temp 98.4 (FEBRUARY 08 10:32) 97.4 (FEBRUARY 08 06:00) 98.1 (FEBRUARY 07 14:59) Apical HR 85 (FEBRUARY 08 10:33) 85 (FEBRUARY 08 10:33) 85 (FEBRUARY 08 10:33) Mon HR 85 (FEBRUARY 08 10:32) 70 (FEBRUARY 07 18:14) 85 (FEBRUARY 08 03:50) Resp Rate 14 (FEBRUARY 08 10:32) 14 (FEBRUARY 07 14:59) 18 (FEBRUARY 07 23:30) SBP H 147 (FEBRUARY 08 10:32) 122 (FEBRUARY 08 06:00) H 160 (FEBRUARY 07 14:59) DBP 85 (FEBRUARY 08 10:32) 66 (FEBRUARY 08 06:00) 89 (FEBRUARY 08 03:50) MAP 110 (FEBRUARY 08 10:32) 89 (FEBRUARY 08 06:00) 110 (FEBRUARY 08 10:32) SpO2 96 (FEBRUARY 08:00) 96 (FEBRUARY 08 06:00) 98 (FEBRUARY 07:59) General: Alert and oriented, No acute distress. Eye: Normal conjunctiva. HENT: Oral mucosa is moist. Respiratory: Lungs are clear to auscultation, Respirations are non-labored. Cardiovascular: Normal rate, Regular rhythm. Gastrointestinal: Soft, Non-tender, Normal bowel sounds. Musculoskeletal: Normal range of motion. Integumentary: Warm. Neurologic: Alert, Oriented, Right upper extremity numbness and weakness. Psychiatric: Cooperative. Results Review Radiology Results (Last 48 hours) [id number] -- 02/07/2019 11:53 MRI Brain WO (02/06/2019 12:11) Result: MR [...] strip.2. No hemorrhage.3. Advanced chronic microvascular changes. No qualifying data available Impression and Plan Assessment and Plan: Diagnosis. 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 Paroxysmal atrial fibrillation currently controlled rate in sinus rhythm. Coronary artery disease with this history of CABG and previous coronary stents Type 2 diabetes Essential hypertension Hyperlipidemia Hypothyroid BPH / migraine PLAN He shouldn't had a bubble study echocardiogram today pending report. Patient is placed on oral anticoagulation as per cardiology and neurology recommendations. Monitor blood glucose, continue home medicines and covered with sliding scale insulin. Monitor labs and Follow electrolytes and replace as needed. PT OT initiated. DC planning discussed with patient and home health care case manager, he shouldn't is looking for possible rehabilitation placement. documented in this encounter Plan of Treatment Not on file documented as of this encounter Visit Diagnoses Not on filedocumented in this encounter Care Teams Energy Advisor Relationship Specialty Start Date End Date Marielos Amaral, KAYE [address] [place] [address] PCP - General Nurse Practitioner 08/18/23 documented as of this encounter
--- OUTSIDE RECORDS SUMMARY | 2025-05-14 20:33 | XMS_ITS | Encounter Summary ---
Author Organization [employer] ([place], [place], [place], [place]) Address [address] [place] [address] Care Team Providers Care Net Washer Name Role Phone Munir Marielos RESTREPO Primary Care Provider Encounter Details Date Type Department Care Team (Late st Contact Info) Description 04/22/2022 Transcribed Document [facility] Family Medicine [address] [place] [address] ProviderHaroldo MD [address] [place] [address] Social History Tobacco Use Types [...] Do you speak a language other than [place] at [facility]? Yes 10/30/2024 Do you want help [...] Conversion Note - Historical Provider, - 04/22/2022 11:03 AM CDT Patient: DEION ANTOINE Age: 71 years Sex: Male : 1950 Associated Diagnoses: Paresthesias; Weakness of right leg; Shoulder pain, right; Neck pain, acute; Syncope; ARF (acute renal failure); Hypotension; Syncope/Near syncope; Potential stroke Author: ANABELA FRENCH PA Basic Information Time seen: Date & time 04/22/2022 09:44:00. History source: Patient, spouse, daughter. Arrival mode: Private vehicle. History limitation: None. Additional information: Chief Complaint from Nursing Triage Note : Chief Complaint 04/22/2022 9:15 EDT Chief Complaint Pt presents via EMS following a syncopal episode. Reprots weakness. Hypotensive upon ED arrival. BP upon arrival was 60 systolic. Received 500mls NS. Hx of CABG and stents. Takes Eliquis. Denies head, neck, ot back pain. 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 . History of Present Illness The patient presents with right, lower extremity, weakness and Patient is a very pleasant 71-year-old white male who presents via EMS after they were called for syncope. His chief complaint to me is I think I had a stroke. He reports that his right leg and right shoulder have been numb off and on for the past 3 weeks, but worse today. He also complains of right shoulder and neck pain. On exam he has significant right leg weakness and denies it is due to pain. He is unsure of the onset of the right leg weakness but states that he began using a cane about 2 weeks ago due to this. He has had a CVA in the past but reports there were no residual effects. There has been no fever or chills. No headaches. No difficulty speaking or swallowing. No chest pain or difficulty breathing. No nausea, vomiting or diarrhea. No abdominal pain. No dysuria, urgency, frequency or hematuria. Patient has a history of atrial fibrillation and is on Eliquis.. Review of Systems Constitutional symptoms: No fever, no chills. Skin symptoms: No rash, Eye symptoms: Vision unchanged. ENMT symptoms: No ear pain, no sore throat, no nasal congestion. Respiratory symptoms: No shortness of breath, no cough. Cardiovascular symptoms: Syncope, No chest pain, Gastrointestinal symptoms: No abdominal pain, no nausea, no vomiting. Genitourinary symptoms: No dysuria, no hematuria. Musculoskeletal symptoms: Negative except as documented in HPI. Neurologic symptoms: Negative except as documented in HPI, Intermittent right arm and leg paresthesias; right leg weakness., no headache, no dizziness. Health Status Allergies: Allergic Reactions (Selected) Severity Not Documented Amoxicillin- No reactions were documented. Mucinex- No reactions were documented. Penicillin- No reactions were documented.. Medications: Per nurse's notes. Past Medical/ Family/ Social History Surgical history: CABG x 4 - Coronary artery bypass grafts x 4 ([id number]) on 02/10/2017 at 66 Years. Cardiac catheterization. hernia repair. Tonsillectomy. Cholecystectomy; ([id number]). Appendectomy. left arm surgery. Coronary stents. EGD - Esophagogastroduodenoscopy ([id number]). Comments: 04/12/2020 7:04 Roxana Grover RN with radio frequency ablation. Family history: Patient was adopted. . Social history: Social & Psychosocial Habits Alcohol 04/14/2019 Alcohol Use History, Social Habits Yes Date/Time of Last Drink Quit in 2008 Alcohol Use in Last Twelve Months No 12/12/2020 Alcohol Use History, Social Habits No Date/Time of Last Drink former Nutrition/Health 04/14/2019 Type of diet: Diabetic Caffeine intake amount: 2 cups a day. Substance Abuse 01/20/2019 Recreational Drug Use History No Recreational Drug Use Last 12 Months No 12/12/2020 Recreational Drug Use History No Tobacco 07/20/2014 Tobacco Use Within Last [...] of Tobacco Use 43 Packs/Tins Daily 0.5 12/12/2020 Smoking Status Former smoker, quit more Smokeless Tobacco Status Smokeless tobacco user wi Smokeless Tobacco Use History Snuff/Dip Packs/Tins Daily .25 Month Tobacco Last Used quit cigarettes . Problem list: Active Problems (20) Acute cerebrovascular accident (CVA) Angina Atrial fibrillation CAD - Coronary artery disease Cardiomyopathy Coronary artery disease Diabetes mellitus type II Enlarged prostate GERD - Gastro-esophageal reflux disease Heart failure Heart murmur History of obstructive sleep apnea HLD - Hyperlipidemia HTN - Hypertension Hyperlipidemia Hypertension Impaired vision Migraine Stented coronary artery Type 2 diabetes mellitus . Physical Examination Vital Signs Vital Signs/Vital Measures 04/22/2022 9:15 EDT Systolic Blood Pressure 102 mmHg Diastolic Blood Pressure 52 mmHg LOW Mean Arterial Pressure (MAP)-BMDI 71 Temperature Source Oral Temperature Mode Fahrenheit Temperature, Fahrenheit 97.8 Deg F Clinical Temperature, C 36.6 Deg C Peripheral Pulse Rate 70 bpm Respiratory Rate 18 Breaths/Min Oxygen Saturation 100 % Oxygen Therapy Mode Room air . Measurements 04/22/2022 9:15 EDT Height Source Stated Height Entry Format [place] Height/Length, PANAMANIAN (ft) 5 ft Height/Length PANAMANIAN 9 Inch CLINICALHEIGHT 175.26 cm [place] Body Weight 69.73 kg Weight Source, ED Critical estimated dosing weight Weight Entry Format [place] Weight Canadian lb 187 lb CLINICALWEIGHT 85 kg Body Surface Area (BSA) 2.01 m2 Body Mass Index 27.7 kg/m2 HI . Oxygen Saturation 04/22/2022 9:15 EDT Oxygen Saturation 100 % . General: Alert, no acute distress. Skin: Warm, dry, pink. Head: Normocephalic, atraumatic. Neck: Supple, Pain and right shoulder pain without frequent tenderness.. Eye: Extraocular movements are intact, normal conjunctiva. Ears, nose, mouth and throat: Oral mucosa moist. Cardiovascular: Regular rate and rhythm, No murmur. Respiratory: Lungs are clear to auscultation, respirations are non-labored. Gastrointestinal: Soft, Nontender, Non distended. Back: No costovertebral angle tenderness, Musculoskeletal: No significant long bone or joint pain, tenderness, swelling or erythema except for the right shoulder which patient describes as having severe pain. Limited range of motion. No significant tenderness. He reports on and off paresthesias for 3 weeks. No focal weakness. Normal pulses, motor function and sensation (currently).. Neurological: Alert and oriented to person, place, time, and situation, CN II-XII intact, normal sensory observed, normal speech observed, Motor strength: Right leg weakness; unable to lift off the bed more than about 2 inches, for about 1 second. No drift of either arm. Unable to perform coordination test with the right leg.. Psychiatric: Cooperative, appropriate mood & affect. Medical Decision Making Differential Diagnosis: Non-hemorrhagic cerebral vascular accident, hemorrhagic cerebral vascular accident, transient ischemic attack, paresthesia, intracranial hemorrhage, peripheral neuropathy, central nervous system tumor, radiculopathy. Documents reviewed: Emergency department nurses' notes. Orders Include Previous Orders (Selected) Inpatient Orders Ordered Bladder Scan: Blood Pressure: Cardiac Monitoring: EKG: Normal Saline Bolus: 1,000 mL, 1,000 mL/Hr, IV Piggyback, 1-Time Ordered (Dispatched) Urinalysis UA Rflx Microscopic Cult if Ind: Ordered (Exam Ordered) CT Abdomen Pelvis WO: Completed BMP Basic Metabolic Panel: CBC w/ Auto Diff: CR Chest 1 Vw Portable: CT Head WO: CT Spine Cervical WO: Orthostatic Vital Signs: Saline Lock Insert: Zofran: 4 mg, IV Push, 1-Time morphine: 4 mg, IV Push, 1-Time. Electrocardiogram: Time 04/22/2022 09:19:00, rate 70, normal sinus rhythm. Results review: Lab results : Lab Results 04/22/2022 9:19 EDT Sodium Level 124 mmol/L LOW Potassium Level 5.0 mmol/L Chloride Level 96 mmol/L LOW Carbon Dioxide Level 15 mmol/L LOW Anion Gap 18 Glucose Level 325 mg/dL HI Blood Urea Nitrogen 94 mg/dL CRIT Creatinine Level 7.80 mg/dL HI eGFR 8 mL/min/1.73m2 LOW eGFR NonAfrican 7 mL/min/1.73m2 LOW Bun/Creatinine 12.1 Calcium Level 9.2 mg/dL WBC 7.6 K/uL RBC 3.38 Million/uL LOW Hgb 10.3 g/dL LOW Hct 30.2 % LOW MCV 89.3 fL MCH 30.5 pg MCHC 34.1 Gram/dL Platelet Count 246 K/uL MPV 10.9 fL RDW 12.9 % Neut % 78.7 % HI Neut # 5.97 K/uL Lymph % 9.8 % LOW Lymph # 0.74 x10(3)/uL LOW Gregory % 10.0 % HI Gregory # 0.76 K/uL Eos % 0.3 % Eos # 0.02 x10(3)/uL Baso % 0.3 % Baso # 0.02 x10(3)/uL Slide Review No IG# 0.07 x10(3)/uL HI IG% 0.90 % HI . Radiology results: Radiology Results (Last 48 hours) [id number] -- 04/22/2022 09:14 CR Chest 1 Vw Portable (04/22/2022 09:48) Result: PORTABLE CHEST; HISTORY: Syncope.COMPARISON: October 2020.FINDINGS: The heart is normal in size. The mediastinum is unremarkable. The lungs are well aerated. There is no evidence of acute infiltrateor effusion. There is no pneumothorax. The patient is status postmedian sternotomy for prior CABG.IMPRESSION: No acute process.Images reviewed, interpreted, and dictated by Dr. Artem Mcdermott.Transcribed by Caroline Gunedrson PA-C.I have personally viewed, interpreted and dictated [...] is noted.IMPRESSION: Chronic appearing changes without acute hemorrhage. CT Spine Cervical WO (04/22/2022 10:49) CT CERVICAL SPINE 04/22/2022 10:16 AM HISTORY: Status [...] agree with the above final transcribed report. . Procedure NIH Stroke Scale Level of consciousness: Alert = 0. Current month and age: Answers both correctly = 0. Open and close eyes/saturation diver release hand: Obeys both correctly = 0. Best gaze: Normal = 0. Visual field testing: No visual field loss = 0. Facial paresis: Normal symmetric movement = 0. Motor function left arm: Normal = 0. Motor function right arm: Normal = 0. Motor function left leg: Normal = 0. Motor function right leg: Drift = 1. Limb ataxia: Present in one limb = 1. Sensory: Normal = 0. Best language: No aphasia = 0. Dysarthria: Normal articulation = 0. Extinction and inattention: Normal = 0. Total score: 2 . Impression and Plan Diagnosis Paresthesias - Discharge, Emergency medicine, Medical Weakness of right leg - Discharge, Emergency medicine, Medical Shoulder pain, right - Discharge, Emergency medicine, Medical Neck pain, acute - Discharge, Emergency medicine, Medical Syncope - Discharge, Emergency medicine, Medical ARF (acute renal failure) - Discharge, Emergency medicine, Medical Hypotension - Discharge, Emergency medicine, Medical Complaint of Syncope/Near syncope - Reason For Visit, Emergency medicine, Medical Potential stroke - Reason For Visit, Emergency medicine, Medical Calls-Consults - 04/22/2022 12:05:00 , NITA WHEELER DO-INT, phone call, recommends admission to med-surg w tele;consult nephrology. - 04/22/2022 12:27:00 , KAYLIN ARANGO MD-[facility], paged Dr. Arango. 1230: Dr Arango is not credit verification clerk. Call Dr. Umana. - 04/22/2022 12:32:00 , PARAM UMANA MD, phone call, Dong paged.. Plan Condition: Stable. Disposition: Admit Consults: Consult to Physician (Order): Start: 04/22/2022 12:28 EDT, Routine, Consult to: PARAM UMANA MD, For ARF, Group Home Supervisor Notified by Physician, Group/Instructions: Pt being admitted to sound Admit/Transfer/Discharge: Admit to Inpatient (Order): Start: 04/22/2022 12:30 EDT, Admit reason: ARF/R leg weakness/paresthesias, Estimated length of stay 2 Midnights or LONGER, Level of Care: Med-Surg with telemetry, Admitting: NITA WHEELER DO-INT. Counseled: Patient, Family, Regarding diagnosis, Regarding diagnostic results, Regarding treatment plan, Patient indicated understanding of instructions, Discussed need for admission and pt/family is amenable to this plan.. Notes: I certify that the physician accounting assistant performed the services as delegated. This note has been prepared with the use of voice recognition software and may contain sound alike errors and omissions.. Electronically signed by Renetta Soto Conversion Supervisor Intelligence Analyst Cerner at 01/24/2023 10:27 AM CDT documented in this encounter Plan of Treatment Not on file documented as of this encounter Visit Diagnoses Not on filedocumented in this encounter Care Teams Net Washer Relationship Specialty Start Date End Date Marielos Amaral, FEATHER MIXER [address] [phone] PCP - General Nurse Practitioner 08/18/23 documented as of this encounter
--- OUTSIDE RECORDS SUMMARY | 2025-05-14 20:33 | XMS_ITS | Encounter Summary ---
Author Organization [employer] ([place], [place], [place], [place]) Address [address] [place] [address] Care Team Providers Care Proposal Review Analyst Name Role Phone Marielos mAaral KAYE Primary Care Provider Encounter Details Date Type Department Care Team (Late st Contact Info) Description 02/09/2019 Transcribed Document [facility] Family Medicine [address] [place] [address] ProviderHaroldo MD [address] [place] [address] Social History Tobacco Use Types Packs/Day Years Used Date Smoking Tobacco: Never Assessed Sex and Gender Information Value Date Recorded Sex Assigned at Not on file Legal Sex Male 3:45 PM CDT Gender Identity Not on file Sexual Orientation Not on file documented as of this encounter Miscellaneous Notes * Cerner Conversion Note - Haroldo ProviderMD - 02/09/2019 2:15 PM CDT Nursing Discharge Summary Entered On: 02/09/2019 14:16 EDT Performed On: 02/09/2019 14:15 EDT by Lina Chaudhary Rn-Flex Team Discharge Documentation Discharge Date/Time : 02/09/2019 14:35 EDT Patient Disposition, General : Discharge Discharge To : Home with ambulatory/outpatient follow-up Mode Of Departure, General Discharge : Private vehicle Accompanied By, Discharge : Spouse Personal Belongings With Patient : Yes Prescriptions Given to Patient : Yes Discharge Instructions Reviewed With, Opportunity For Questions Given : Patient, Spouse Patient Education Completed : Yes Number of Prescriptions Given : 4 Teaching Method : Explanation Teaching Evaluation : Verbalizes understanding Education Comment : Pt unavailable but family members educated and will pass information and doc to patient. Lina Chaudhary, Rn-Flex Team - 02/09/2019 14:15 EDT Electronically signed by Brittany [facility] Conversion Tree Thinner Cerner at 01/24/2023 10:39 AM CDT documented in this encounter Plan of Treatment Not on file documented as of this encounter Visit Diagnoses Not on filedocumented in this encounter Care Teams Proposal Review Analyst Relationship Specialty Start Date End Date Marielos Amaral, ELECTRICITY TRADER [address] [place] [address] PCP - General Nurse Practitioner 08/18/23 documented as of this encounter
--- OUTSIDE RECORDS SUMMARY | 2025-05-14 20:33 | XMS_ITS | Encounter Summary ---
Author Organization [employer] ([place], [place], [place]) Address [address] [place] [address] Care Team Providers Care Cocktail Lounge Manager Name Role Phone Marielos Amaral FIELD SERVICES DIRECTOR Primary Care Provider Encounter Details Date Type Department Care Team (Late st Contact Info) Description 03/23/2019 Transcribed Document [address] [address] Camilo Steven MD [address] [place] [address] Social History Tobacco Use Types Packs/Day Years Used Date Smoking Tobacco: Never Assessed Sex and Gender Information Value Date Recorded Sex Assigned at Not on file Legal Sex Male 3:45 PM CDT Gender Identity Not on file Sexual Orientation Not on file documented as of this encounter Miscellaneous Notes * Cerner Conversion Note - Camilo Steven MD - 03/23/2019 3:15 PM EDT PLEASE MODIFY BEFORE SIGNING CLINICAL DOCUMENTATION CLARIFICATION FORM: Dear : CAMILO STEVEN Date / Time: 03/23/2019 / 13:15 CT Please exercise your independent, professional judgment in responding to the clarification form. Clinical indicators are provided on the bottom of this form for your review Please check appropriate box(s): HEART FAILURE: A. TYPE: [x ] Systolic / HFrEF [ ] Diastolic / HFpEF B. ACUITY [ ] Acute [ x ] Chronic [ ] Other diagnosis [ ] Unable to determine Physician Signature: Date/Time: For continuity of documentation, please document condition throughout progress notes and discharge summary. Thank You. To be completed by CDI/Coding staff for physician review: Present Clinical Indicators - Signs / Symptoms / Labs Results and Location in Medical Record [ X ] Ejection Fraction = 40% +/- 5% 02/07 Echo: Visually estimated ejection fraction: 40% +/- 5% [ X ] Heart Failure 02/05 H&P: Heart Failure [ X ] Arrhythmia 02/06 Cardiology Consult, Camilo Carcamo: Paroxysmal atrial fib Present Risk Factors Results andLocation in Medical Record [ X ] History of CAD, Hypertension 02/05 H&P: CAD with history of CABG, hypertension [ X ] Tobacco use 02/05 H&P: current smoker, half pack per day Present Treatments Results and Location in Medical Record [ X ] Administration of DEVI / BB Home Meds: Lopressor 50mg, Lisinopril 10mg [ X ] Cardiac monitoring 02/06 Orders: Cardiac Monitoring Pararescue Manager Signature: Nahomy Nieves CCS Phone #: [phone] Date/Time: 03/23/2019 / 13:25 CT This is a permanent part of the Medical Record documented in this encounter Plan of Treatment Not on file documented as of this encounter Visit Diagnoses Not on filedocumented in this encounter Care Teams Cocktail Lounge Manager Relationship Specialty Start Date End Date Marielos Amaral, FIELD SERVICES DIRECTOR [address] [place] [address] PCP - General Nurse Practitioner 08/18/23 documented as of this encounter
--- OUTSIDE RECORDS SUMMARY | 2025-05-14 20:33 | XMS_ITS | Encounter Summary ---
Author Organization [employer] ([place], [place], [place], [place]) Address [address] [place] [address] Care Team Providers Care Form Block Maker Name Role Phone Marielos Amaral KAYE Primary Care Provider Encounter Details Date Type Department Care Team (Late st Contact Info) Description 02/09/2019 Transcribed Document [facility] [place] [address] [place] [address] ProviderHaroldo MD [address] [place] [address] Social History Tobacco Use Types Packs/Day Years Used Date Smoking Tobacco: Never Assessed Sex and Gender Information Value Date Recorded Sex Assigned at Not on file Legal Sex Male 3:45 PM CDT Gender Identity Not on file Sexual Orientation Not on file documented as of this encounter Miscellaneous Notes * Cerner Conversion Note - Haroldo ProviderMD - 02/09/2019 2:00 AM CDT Hop Grower Details Entered On: 02/09/2019 3:10 EDT Performed On: 02/09/2019 2:00 EDT by Cara Chaudhary RN Order Details Transport Mode Order Detail : Wheelchair Isolation Precautions Order Detail : Standard Precautions Order Detail : N/A IV Order Detail : 1 Lift/Transfer : Minimal Central Line Order Detail : No Room Service : Appropriate Arterial Line : No Cara Chaudhary RN - 02/09/2019 3:10 EDT documented in this encounter Plan of Treatment Not on file documented as of this encounter Visit Diagnoses Not on filedocumented in this encounter Care Teams Form Block Maker Relationship Specialty Start Date End Date Marielos Amaral, FOREST AND CONSERVATION WORKER [address] [id number] PCP - General Nurse Practitioner 08/18/23 documented as of this encounter
--- OUTSIDE RECORDS SUMMARY | 2025-05-14 20:33 | XMS_ITS | Encounter Summary ---
Author Organization [email or web address] ([place], [place], [place], [place]) Address [address] [place] [address] Care Team Providers Care Software Quality Automation Engineer Name Role Phone Munir Marielos RESTREPO Primary Care Provider Encounter Details Date Type Department Care Team (Late st Contact Info) Description 04/22/2022 Transcribed Document [facility] [place] [address] [place] [address] ProviderHaroldo MD [address] [place] [address] Social History Tobacco Use Types [...] Do you speak a language other than Argentine at [facility]? Yes 10/30/2024 Do you [...] Conversion Note - Historical Provider, - 04/22/2022 1:51 PM CDT STOCK COUNTER Attempt to Treat Entered On: 04/22/2022 13:51 EDT Performed On: 04/22/2022 13:51 EDT by TOVA LOPEZ SLP Attempt to Treat Unable to Treat Due To : Patient Unavailable Inability to Treat Comment : Pt leaving for CT. STOCK COUNTER will check back as schedule allows. Notification : TOVA MACIAS, RAMONA - 04/22/2022 13:51 EDT Electronically signed by Brittany [facility] Conversion Personal Banking Officer Cerner at 01/24/2023 10:39 AM CDT documented in this encounter Plan of Treatment Not on file documented as of this encounter Visit Diagnoses Not on filedocumented in this encounter Care Teams Software Quality Automation Engineer Relationship Specialty Start Date End Date Marielos Amaral, SHOE CLEANER [address] [place] [address] PCP - General Nurse Practitioner 08/18/23 documented as of this encounter
--- OUTSIDE RECORDS SUMMARY | 2025-05-14 20:33 | XMS_ITS | Encounter Summary ---
Author Organization [employer] ([place], [place], [place], [place]) Address [address] [place] [address] Care Team Providers Care Maths Tutor Name Role Phone Marielos Amaral KAYE Primary Care Provider Encounter Details Date Type Department Care Team (Late st Contact Info) Description 02/09/2019 Transcribed Document [facility] [place] [address] [place] [address] ProviderHaroldo MD [address] [place] [address] Social History Tobacco Use Types Packs/Day Years Used Date Smoking Tobacco: Never Assessed Sex and Gender Information Value Date Recorded Sex Assigned at Not on file Legal Sex Male 3:45 PM CDT Gender Identity Not on file Sexual Orientation Not on file documented as of this encounter Miscellaneous Notes * Cerner Conversion Note - Haroldo ProviderMD - 02/09/2019 9:48 AM CDT Event Note Entered On: 02/09/2019 9:52 EDT Performed On: 02/09/2019 9:48 EDT by Lina Chaudhary Rn-Flex Team Event Note Event Date/Time : 02/09/2019 9:48 EDT Event Location : Assigned room Event Details : Nursing assessment additional narrative Description of Event : Spoke to Guy - caden ramirez with Dr Benton for [facility] at Dr Tolliver's request concerning Amiodarone. Pt has been on Amiodarone while in hospital, but was not actually taking as home medication according to pharmacist. Guy recommends pt continue taking Amiodarone until follows up with outpatient MD Tahira Peterson. Lina Chaudhary, Sharri-Flex Team - 02/09/2019 9:48 EDT documented in this encounter Plan of Treatment Not on file documented as of this encounter Visit Diagnoses Not on filedocumented in this encounter Care Teams Maths Tutor Relationship Specialty Start Date End Date Marielos Amaral, HELICOPTER TECHNICIAN [address] [place] [address] PCP - General Nurse Practitioner 08/18/23 documented as of this encounter
--- OUTSIDE RECORDS SUMMARY | 2025-05-14 20:33 | XMS_ITS | Encounter Summary ---
Author Organization [employer] ([place], [place], [place], [place]) Address [address] [place] [address] Care Team Providers Care Software Packaging Engineer Name Role Phone Munir Marielos RESTREPO Primary Care Provider [phone] Encounter Details Date Type Department Care Team (Late st Contact Info) Description 04/22/2022 Transcribed Document [facility] [place] [address] [place] [address] ProviderHaroldo MD [address] [place] [address] Social History Tobacco Use Types [...] Do you speak a language other than [place] Islander at [facility]? Yes 10/30/2024 Do you want help [...] Conversion Note - Historical Provider, - 04/22/2022 5:33 PM CDT ED Event Note Entered On: 04/22/2022 17:34 EDT Performed On: 04/22/2022 17:33 EDT by Casi Evans, Emergency Room Airport Maintenance Laborer ED Event Note ED Event Date/Time : 04/22/2022 17:33 EDT ED Description of Event : food tray ordered Casi Evans, Emergency Room Airport Maintenance Laborer - 04/22/2022 17:33 EDT Electronically signed by Brittany [facility] Conversion Conditioning Machine Operator Cerner at 01/24/2023 10:42 AM CDT documented in this encounter Plan of Treatment Not on file documented as of this encounter Visit Diagnoses Not on filedocumented in this encounter Care Teams Software Packaging Engineer Relationship Specialty Start Date End Date Marielos Amaral, KAYE [address] [place] [address] PCP - General Nurse Practitioner 08/18/23 documented as of this encounter
--- OUTSIDE RECORDS SUMMARY | 2025-05-14 20:33 | XMS_ITS | Encounter Summary ---
Author Organization [employer] ([place], [place], [place], [place]) Address [address] [place] [address] Care Team Providers Care Circulation Man Name Role Phone Munir Marielos RESTREPO Primary Care Provider Encounter Details Date Type Department Care Team (Late st Contact Info) Description 04/22/2022 Transcribed Document [facility] [place] [address] [place] [address] ProviderHaroldo MD [address] [place] [address] Social History Tobacco Use Types [...] Do you speak a language other than Ukrainian at [facility]? Yes 10/30/2024 Do you want [...] Conversion Note - Historical Provider, - 04/22/2022 9:19 AM CDT Vital Signs ED Entered On: 04/22/2022 11:14 EDT Performed On: 04/22/2022 11:13 EDT by Shala Cole RN Vital Signs ED Temperature Mode : Fahrenheit Systolic Blood Pressure, Supine : 83 mmHg Diastolic Blood Pressure, Supine : 46 mmHg Pulse Supine : 67 bpm Systolic B/P, Sitting : 89 mmHg Diastolic B/P, Sitting : 569 mmHg Pulse Sitting : 69 bpm Systolic Blood Pressure, Standing : 82 mmHg Diastolic Blood Pressure, Standing : 48 mmHg Pulse Standing : 75 bpm Shala Cole RN - 04/22/2022 11:13 EDT Electronically signed by Brittany [facility] Conversion Java Development Team Lead Cerner at 01/24/2023 10:31 AM CDT documented in this encounter Plan of Treatment Not on file documented as of this encounter Visit Diagnoses Not on filedocumented in this encounter Care Teams Circulation Man Relationship Specialty Start Date End Date Marielos Amaral, FOREIGN FOOD COOK SPECIALTY [address] [address] PCP - General Nurse Practitioner 08/18/23 documented as of this encounter
--- OUTSIDE RECORDS SUMMARY | 2025-05-14 20:33 | XMS_ITS | Encounter Summary ---
Author Organization [employer] ([place], [place], [place], [place]) Address [address] [place] [address] Care Team Providers Care Auto Parts Salesperson Name Role Phone Marielos Amaral KAYE Primary Care Provider Encounter Details Date Type Department Care Team (Late st Contact Info) Description 02/12/2019 Transcribed Document [facility] [place] [address] [place] [address] ProviderHaroldo MD [address] [place] [address] Social History Tobacco Use Types Packs/Day Years Used Date Smoking Tobacco: Never Assessed Sex and Gender Information Value Date Recorded Sex Assigned at Not on file Legal Sex Male 3:45 PM CDT Gender Identity Not on file Sexual Orientation Not on file documented as of this encounter Miscellaneous Notes * Cerner Conversion Note - Haroldo ProviderMD - 02/12/2019 12:06 PM CDT Post Visit Phone Call Entered On: 02/12/2019 12:08 EDT Performed On: 02/12/2019 12:06 EDT by BONNIE GORDON, RN Post Visit Phone Call Post Visit Phone Call History : First call, Left message BONNIE GORDON, RN - 02/12/2019 12:06 EDT documented in this encounter Plan of Treatment Not on file documented as of this encounter Visit Diagnoses Not on filedocumented in this encounter Care Teams Auto Parts Salesperson Relationship Specialty Start Date End Date Marielos Amaral, RESEARCH ASSOCIATE PROFESSOR [address] [place] [address] PCP - General Nurse Practitioner 08/18/23 documented as of this encounter
--- OUTSIDE RECORDS SUMMARY | 2025-05-14 20:33 | XMS_ITS | Encounter Summary ---
Author Organization [employer] ([place], [place], [place], [place]) Address [address] [place] [address] Care Team Providers Care Medical Anthropologist Name Role Phone Marielos Amaral KAYE Primary Care Provider Encounter Details Date Type Department Care Team (Late st Contact Info) Description 02/09/2019 Transcribed Document [facility] [place] [facility] [place] [address] ProviderHaroldo MD [address] [place] [address] Social History Tobacco Use Types Packs/Day Years Used Date Smoking Tobacco: Never Assessed Sex and Gender Information Value Date Recorded Sex Assigned at Not on file Legal Sex Male 3:45 PM CDT Gender Identity Not on file Sexual Orientation Not on file documented as of this encounter Miscellaneous Notes * Cerner Conversion Note - Haroldo ProviderMD - 02/09/2019 1:20 PM CDT Final Discharge Planning Entered On: 02/09/2019 13:23 EDT Performed On: 02/09/2019 13:20 EDT by GERALDINE BROWN, RN-Credit And Loan Collections Supervisor Final Discharge Planning Discharge Arrangements : Patient Post-Acute Information Patient Name: ZACKARY ANTOINE Gender: Male : 52 Age: 68 Years No Post-Acute Placement(s) Listed No Post-Acute Service(s) Listed No [place] Referral(s) Listed GERALDINE BROWN, RN-Credit And Loan Collections Supervisor - 02/09/2019 13:20 EDT Accts Placement Outside [facility] Account #1 Service : Outpatient physical therapy Organization : [facility] Business Address : [address] [address] Comment (Comment: wanted them to call her to arrange her first appointment [GERALDINE BROWN, RN-Credit And Loan Collections Supervisor - 02/09/2019 13:20 EDT] ) GERALDINE BROWN, RN-Credit And Loan Collections Supervisor - 02/09/2019 13:20 EDT Transportation Needs : Car Discharge Transportation Arrangement Cmt : Follow Up Appointment Scheduled : Yes Is Patient High/Moderate Readmission Risk? : No Patient/Family Notified of Plan : Yes Patient/Family Notified : patient and his Discharge To Care Management : Home/Residential/Fpc or Self Care -01 GERALDINE BROWN, RN-Credit And Loan Collections Supervisor - 02/09/2019 13:20 EDT Final Narrative Note Final Narrative Note : Pt's requests outpatient physical therapy at [facility] in [place] (phone [phone] / fax [phone]). She wants them to contact her to schedule pt's first appointment. Attented to call [facility] but no answer. Orders faxed. GERALDINE BROWN, RN-Credit And Loan Collections Supervisor - 02/09/2019 13:20 EDT documented in this encounter Plan of Treatment Not on file documented as of this encounter Visit Diagnoses Not on filedocumented in this encounter Care Teams Medical Anthropologist Relationship Specialty Start Date End Date Marielos Amaral, KAYE [address] [address] PCP - General Nurse Practitioner 08/18/23 documented as of this encounter
--- OUTSIDE RECORDS SUMMARY | 2025-05-14 20:33 | XMS_ITS | Encounter Summary ---
Author Organization [employer] ([place], [place], [place], [place]) Address [address] [place] [address] Care Team Providers Care Agriculture Department Chair Name Role Phone Munir Marielos RESTREPO Primary Care Provider Encounter Details Date Type Department Care Team (Late st Contact Info) Description 04/22/2022 Transcribed Document [facility] [place] [address] [place] [address] ProviderHaroldo MD [address] [place] [address] Social History Tobacco Use Types [...] Do you speak a language other than Haitian at [facility]? Yes 10/30/2024 Do you want [...] Conversion Note - Historical Provider, - 04/22/2022 9:30 PM CDT ED Discharge Entered On: 04/23/2022 0:58 EDT Performed On: 04/22/2022 21:30 EDT by Cara Butler Processing Archivist Process Patient Disposition : Admit/Observe Personal Belongings With Patient : Yes IV Discontinued : No Cara Butler Rn - 04/23/2022 0:58 EDT Admission, ED Nurse Report Accepted By : LUIS Owusu `Nurse Report (Hand Off) : Called Fluids/Drips Continued on Admission : Yes Mode Of Departure : Stretcher Cara Butler Rn - 04/23/2022 0:58 EDT Electronically signed by Brittany [facility] Conversion Certified Welding Inspector Cerner at 01/24/2023 10:24 AM CDT documented in this encounter Plan of Treatment Not on file documented as of this encounter Visit Diagnoses Not on filedocumented in this encounter Care Teams Agriculture Department Chair Relationship Specialty Start Date End Date Marielos Amaral, TOURS CAPTAIN [address] [address] PCP - General Nurse Practitioner 08/18/23 documented as of this encounter
--- OUTSIDE RECORDS SUMMARY | 2025-05-14 20:33 | XMS_ITS | Encounter Summary ---
Author Organization [employer] ([place], [place], [place], [place]) Address [address] [place] [address] Care Team Providers Care Wastewater Treatment Supervisor Name Role Phone Munir Marielos RESTREPO Primary Care Provider Encounter Details Date Type Department Care Team (Late st Contact Info) Description 04/22/2022 Transcribed Document [facility] [place] [address] [place] [address] ProviderHaroldo MD [address] [place] [address] Social History Tobacco Use Types [...] Do you speak a language other than Libyan at [facility]? Yes 10/30/2024 Do you want help [...] Provider, - 04/22/2022 9:14 AM CDT ED Assessment Entered On: 04/22/2022 10:03 EDT Performed On: 04/22/2022 10:02 EDT by Shala Cole RN ED Quick Look Assessment Level of Consciousness : Alert, Awake Affect/Behavior : Appropriate, Calm Orientation : Oriented x 4 Skin Temperature : Warm Skin Description : Normal for ethnicity Shala Cole RN - 04/22/2022 10:02 EDT ED General-Functional Assess Information Obtained From : Patient Preferred Communication Mode : Verbal Communication Barrier : None Primary Language : Libyan Any Spiritual/Cultural Needs or Requests : No Currently in Unsafe Situation : No Shala Cole RN - 04/22/2022 10:02 EDT Social Habits Smoking Status : 5-9 cigarettes (between 1/4 to 1/2 pack)/day in last 30 days Smokeless Tobacco Status : Never Desires Tobacco Cessation Medication : No Reason for No Tobacco Cessation Medication : ED/procedural patient only Desires Tobacco Cessation Calc : 1 Shala Cole RN - 04/22/2022 10:02 EDT Social History (As Of: 04/22/2022 10:03:56 EDT) Tobacco: Use in Last 12 Months: [...] (Last Updated: 02/07/2017 12:26:55 EDT by Jack Aldana RN) Former smoker, quit more than 30 days ago Smoking Status. Smokeless tobacco user within last 30 days Smokeless Tobacco Status. Snuff/Dip Smokeless Tobacco Use History. Years of Use: 43. Packs/Tins Daily: 0.5. (Last Updated: 04/14/2019 14:21:23 EDT by MIKO GALLAGHER, LUIS) Former smoker, quit more than 30 days ago Smoking Status. Smokeless tobacco user within last 30 days Smokeless Tobacco Status. Snuff/Dip Smokeless Tobacco Use History. Packs/Tins Daily: .25. Last Used: quit cigarettes. (Last Updated: 12/12/2020 09:18:23 EST by Marielle Ward RN) Alcohol: Alcohol Use History Yes. Date/Time of Last Drink: Quit in 2008. Use in Last 12 Months: No. (Last Updated: 04/14/2019 14:21:58 EDT by MIKO GALLAGHER, LUIS) Alcohol Use History No. Date/Time of Last Drink: former. (Last Updated: 12/12/2020 09:18:23 EST by Marielle Ward, LUIS) Substance Abuse: Drug Use Hx: No. Use in Last 12 Months: No. (Last Updated: 01/20/2019 12:43:06 EDT by CORRINA QUINTANA RN) Drug Use Hx: No. (Last Updated: 12/12/2020 09:18:23 EST by Marielle Ward, LUIS) Nutrition/Health: Diabetic, Caffeine intake amount: 2 cups a day.. (Last Updated: 04/14/2019 14:22:28 EDT by MIKO GALLAGHER, LUIS) Cardiovascular ASMT, ED Cardiovascular Assessment WDL : WDL with exceptions (Comment: pt c/o syncope episode and intermittent weakness today. pt states he has hx of bypass surgery. pt denies chest pain, sob. currently taking eliquis. [Shala Cole RN - 04/22/2022 10:02 EDT] ) Cardiovascular Symptoms : Syncope/Fainting at rest, Syncope/Fainting with activity Shala Cole RN - 04/22/2022 10:02 EDT Respiratory Respiratory Assessment WDL : WDL Shala Cole RN - 04/22/2022 10:02 EDT Gastrointestinal ED Gastrointestinal Assessment WDL : Shala Maloney RN - 04/22/2022 10:02 EDT Neurologic ASMT, ED Neurologic Assessment WDL : Shala Maloney RN - 04/22/2022 10:02 EDT Electronically signed by [facility] Conversion Physician Allergist Immunologist Cerner at 01/24/2023 10:25 AM CDT documented in this encounter Plan of Treatment Not on file documented as of this encounter Visit Diagnoses Not on filedocumented in this encounter Care Teams Wastewater Treatment Supervisor Relationship Specialty Start Date End Date Marielos Amaral, MOTORIZED SQUAD CAPTAIN [address] [place] [address] PCP - General Nurse Practitioner 08/18/23 documented as of this encounter
--- OUTSIDE RECORDS SUMMARY | 2025-05-14 20:33 | XMS_ITS | Encounter Summary ---
Author Organization [email or web address] ([place], [place], [place], [place]) Address [address] [place] [address] Care Team Providers Care Boiling House Hand Name Role Phone Munir Marielos RESTREPO Primary Care Provider Encounter Details Date Type Department Care Team (Late st Contact Info) Description 04/22/2022 Transcribed Document [facility] Family Medicine [address] [place] [address] ProviderHaroldo MD [address] [place] [address] Social History Tobacco Use Types [...] Do you speak a language other than [place] at [facility]? Yes 10/30/2024 Do you want help [...] Conversion Note - Historical Provider, - 04/22/2022 10:36 PM CDT Admission History, Adult Entered On: 04/22/2022 22:43 EDT Performed On: 04/22/2022 22:36 EDT by Umer John Rn Flex II Advance Directive Patient has Advance Directive *Q : Yes, Advance Directive on file Advance Directive Type : Living will Copy Advance Directive Verified/on Chart : Yes Umer John Rn Flex II - 04/22/2022 22:36 EDT Anesthesia/Transfusion History Family History of Anesthesia Reaction : No prior transfusion(s) Transfusion History : Prior anesthesia without reaction Family History of Anesthesia Reaction : None Intubation History : Unknown Umer John Rn Flex II - 04/22/2022 22:36 EDT Anticipated Discharge Needs Discharge To, Anticipated : Home, Rehabilitation unit/facility Umer John Rn Flex II - 04/22/2022 22:36 EDT Education Topics, Admission Orientation DCP GENERIC CODE Advance Directives : Verbalizes understanding Assessment/Vital Signs : Verbalizes understanding Bed Control : Verbalizes understanding Call Light : Verbalizes understanding Confidentiality : Verbalizes understanding Diet/Room Service : Verbalizes understanding Fall Prevention : Verbalizes understanding Hand Hygiene : Verbalizes understanding Healthcare Provider Visit : Verbalizes understanding ID Band Applied : Verbalizes understanding Isolation Precautions : Verbalizes understanding Orientation to Room/Bathroom : Verbalizes understanding Patient Bill of Rights : Verbalizes understanding Patient Rights/Responsibilities : Verbalizes understanding Patient Safety : Verbalizes understanding Personal Privacy Code : Verbalizes understanding Rapid Response Initiated by Patient/Family : Verbalizes understanding Rounding : Verbalizes understanding Siderails use/risks : Verbalizes understanding Skin Precautions : Verbalizes understanding Smoking Policy : Verbalizes understanding Telemetry Monitoring : Verbalizes understanding Television/Phone : Verbalizes understanding Visiting Policy : Verbalizes understanding Umer John Rn Flex II - 04/22/2022 22:36 EDT Functional Assessment Living Situation : Home Current Home Treatments : Blood glucose monitoring, Other: walker and cane Home Equipment : Cane, Walker Umer John Rn Flex II - 04/22/2022 22:36 EDT General Info Preferred Name : Clint Mode of Arrival on Unit : Stretcher Legal Guardian : Unaccompanied Legal Guardian : No Support Person/Patient Bolt Cutter : Yes Support Person/Pt Rep Name : Enriqueta - Contact Password : peanut Support Person/Pt Rep Contact Information : [phone], cell Want Family/Rep/Phys Notified of Admit : No Emergency Contact #1 : Kar Carrasco Emergency Contact #1 Emergency Contact #1 Relationship : Emergency Contact #2 : January Bernardino Emergency Contact #2 Emergency Contact #2 Relationship : daughter Chief Complaint : Pt presents via EMS following a syncopal episode. Reprots weakness. Hypotensive upon ED arrival. BP upon arrival was 60 systolic. Received 500mls NS. Hx of CABG and stents. Takes Eliquis. Denies head, neck, ot back pain. 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 Information Obtained From : Patient Primary Language : Citizen [place] Preferred Communication Mode : Verbal Communication Barrier : None Currency Machine Operator Needed : No Umer John Rn Flex II - 04/22/2022 22:36 EDT Fall Risk Scales ABCs Fall Injury Risk Identification : Age, Coagulation ABC Fall Injury Risk : Moderate to high injury risk STARK Hx Falls Immediate/Within 3 Months : Yes Stark Secondary Diagnosis : Yes STARK Use of Ambulatory Aid : Bed rest/Nurse assist STARK IV Therapy or IV Access : Yes Stark Gait/Transferring : Weak Stark Mental Status : Oriented to own ability Stark Fall Risk Score : 70 STARK Fall Scale Risk Level : 46 or > High Risk Arvin Fall Interventions : Adequate lighting, Assistive devices within reach, Bed in low position, Call device within reach, Hourly comfort/safety rounds, Non-slip footwear, Personal items within reach, Reinforced to call for assistance before getting out of bed, Room free of clutter/spills, Upper side-rails up, Wheels locked, Wires/Cords secured Barriers to Learning : None evident Umer John Rn Flex II - 04/22/2022 22:36 EDT Health Histories Smoking Status : Never (less than 100 in lifetime; none in last 30 days) Smokeless Tobacco Status : Never Umer John Rn Flex II - 04/22/2022 22:36 EDT Social History (As Of: 04/22/2022 22:43:05 EDT) Tobacco: Use in Last 12 Months: [...] 12/12/2020 09:18:23 EST by Marielle Ward, LUIS) Alcohol: Alcohol Use History Yes. Date/Time of [...] 12/12/2020 09:18:23 EST by Marielle Ward RN) Nutrition/Health: Diabetic, Caffeine intake amount: 2 cups a day.. (Last Updated: 04/14/2019 14:22:28 EDT by MIKO GALLAGHER RN) Height and Weight, Clinical Dosing Height Source : Stated Height Entry Format : [place]entry Height, Feet : 5 ft(Converted to: 152 cm, 60 Inch) Height, Inches : 9 Inch(Converted to: 0 ft 9 Inch, 22.86 cm) Clinical Height : 175.26 cm Weight Source : Bed scale Weight Entry Format : Gentry Clinical Dosing Weight : 85 kg Weight, Pounds : 187 lb Body Surface Area (BSA) : 2.01 m2 Body Mass Index : 27.7 kg/m2 ([place]) [place] Body Weight : 70 kg Umer John Rn Flex II - 04/22/2022 22:36 EDT Infectious Disease History Does patient have symptoms of COVID-19? : No Tested for COVID19 in the past 14 days : No, Patient stated Does the Patient state known exposure to a COVID-19 positive case in the last 14 days? : No Patient Vaccinated for COVID-19 : Fully vaccinated Umer John Rn Flex II - 04/22/2022 22:36 EDT Infectious Disease Risk Screening Grid Cough < 2 wks of unknown origin : NO Cough > 2 weeks : NO Blood in Sputum : NO Fever or self-reported Fever : NO Rash of unknown origin : NO Headache : NO Stiff neck : NO Night Sweats : NO Unexplained Weight Loss : NO Diarrhea (3 episode per day) : NO Umer John Rn Flex II - 04/22/2022 22:36 EDT Physical contact outside [place] in the last 30 days : No Hospitalized in Foreign Country : No Infectious Disease History : Chicken pox/Shingles, Influenza, Measles, Mumps, Rubella INF Disease TB Screening Calc : 0 INF Disease Recent Travel Calc : 0 Umer John Rn Flex II - 04/22/2022 22:36 EDT Tetanus Immunization Status Previous Tetanus Immunizations : No qualifying data available. Tetanus Immunization : Greater than 5 years Umer John Rn Flex II - 04/22/2022 22:36 EDT Influenza Vaccine Asmt, Adult Previous Vaccines from Immunization Schedule : No qualifying data available. Influenza Immunization, Current Season : Outside of influenza season Umer John Rn Flex II - 04/22/2022 22:36 EDT Pneumococcal Vaccine Previous Vaccines from Immunization Schedule : No qualifying data available. Pneumonia Immunization Received : Yes Umer Jonh Rn Flex - 04/22/2022 22:36 EDT Order Details Order Detail : N/A Patient Needs Meds Crushed/Liquid : No Umer John Rn Flex - 04/22/2022 22:36 EDT Nutrition History Adaptive Feeding Equipment : Regular Oral Medication Administration : By mouth Eating Poorly Due to Decreased Appetite : No Unplanned Weight Loss in Past 3-6 Months : No Malnutrition Screening Tool Total(mal) : 0 Malnutrition Screening Tool Risk Level : Patient not at risk Umer John Rn Flex - 04/22/2022 22:36 EDT [place] Suicide Severity Rating Scale (C-SSRS) CSSRS Past Month Wish to be : No CSSRS Past Month Suicidal Thoughts : No CSSRS Lifetime Suicide Behavior : No Suicide Severity Rating Score : 0 Suicide Severity Rating : No Additional Care Required at this time Umer John Rn Flex - 04/22/2022 22:36 EDT Psychosocial History Chronic/Terminal Illness w/Freq Visits : No Do You Have a History of the Following? : Patient denies history Currently in Unsafe Situation : No Umer John Rn Flex - 04/22/2022 22:36 EDT Sleep Apnea Risk Assmt BiPAP/CPAP Ordered for Home Use : No Hx of Obstructive Sleep Apnea Diagnosis : Yes Age over 50 Years Old : Yes Gender Male : Yes Umer John Rn Flex - 04/22/2022 22:36 EDT Spiritual/Cultural Needs Any Spiritual/Cultural Needs or Requests : No Umer John Rn Flex - 04/22/2022 22:36 EDT Valuables and Belongings Valuables and Belongings : Clothing Clothing : Common streetwear Clothing Disposition : Bedside Umer John Rn Flex - 04/22/2022 22:36 EDT documented in this encounter Plan of Treatment Not on file documented as of this encounter Visit Diagnoses Not on filedocumented in this encounter Care Teams Boiling House Hand Relationship Specialty Start Date End Date Marielos Amaral APRN [address] [phone] PCP - General Nurse Practitioner 08/18/23 documented as of this encounter
--- OUTSIDE RECORDS SUMMARY | 2025-05-14 20:33 | XMS_ITS | Encounter Summary ---
Author Organization [employer] ([place], [place], [place], [place]) Address [address] [place] [address] Care Team Providers Care Clay Maker Name Role Phone Munir Marielos RESTREPO Primary Care Provider Encounter Details Date Type Department Care Team (Late st Contact Info) Description 04/22/2022 Transcribed Document [facility] Family Medicine [address] [place] [address] ProviderHaroldo MD [address] [place] [address] Social History Tobacco Use Types [...] Do you speak a language other than [place] at [facility]? Yes 10/30/2024 Do you want help [...] Conversion Note - Historical Provider, - 04/22/2022 1:14 PM CDT DATE OF CONSULTATION: 04/22/2022 NEPHROLOGY CONSULT NOTE CONSULTING PHYSICIAN: Dr. Mita Jefferson. REASON FOR CONSULT: Acute kidney injury, hyponatremia, and metabolic acidosis. CHIEF COMPLAINT: Generalized weakness. HISTORY OF PRESENTING ILLNESS: This is a 71-year-old male with a past medical history significant for coronary artery disease status post CABG, hypertension, diabetes, and hyperlipidemia, who presented to the ED with a complaint of generalized weakness. The whole episode was noted by the family member. He was getting ready to go to his medical appointment with doctor and his went on to get some chores to be done before that, then she heard him calling her for help and she found her him on the floor, alert, never loss of consciousness and very weak. She held him to the bed and then called EMS. EMS arrived and he was brought to the office to the ED for further evaluation and treatment. At the time of the presentation, his blood pressure was 102/52, heart rate of 70, respirations of 18, and saturating 100% on room air. Nephrology Service has been consulted because of electrolyte abnormalities, which were sodium of 124, creatinine of 7.8 with bicarb of 15. The patient has a history of kidney stones. His last kidney stone was 8 years back. Denies any NSAID use. No family history of kidney disease and the patient was adopted, so he is unable to give any relevant family history. REVIEW OF SYSTEMS: Comprehensive review of 14 systems was done, found to be negative except as noted in HPI. PAST MEDICAL HISTORY: 1. Coronary artery disease, status post CABG. 2. Diabetes. 3. Hypertension. 4. Hyperlipidemia. SURGICAL HISTORY: CABG done. HOME MEDICATIONS: 1. Amiodarone. 2. Atorvastatin. 3. Bumex. 4. Aldactone. 5. Januvia. 6. Lisinopril. 7. Metoprolol. 8. Synthroid. 9. Tylenol. ALLERGIES: The patient is allergic to amoxicillin, Mucinex, and penicillin. FAMILY HISTORY: The patient is adopted. Limited family history. No family history of kidney disease per the patient and the family members. SOCIAL HISTORY: Former smoker. Denies any alcohol or illicit drug use. PHYSICAL EXAMINATION: VITAL SIGNS: Blood pressure 102/52, heart rate of about 70, respiratory rate of 18, saturating 100% on room air, and temperature 97.8. GENERAL: The patient is alert and oriented x3. Little bit weak, in no acute distress. HEENT: Head is normocephalic and atraumatic. Eyes: Extraocular movements intact. Pupils equal and reactive to light and accommodating. NECK: Supple. No JVD. No carotid bruit. LUNGS: Clear to auscultation bilaterally. No labored respirations. CVS: S1 and S2 audible. Regular rate and rhythm. Positive murmur. ABDOMEN: Soft, nontender, nondistended. Bowel sounds present. EXTREMITIES: No pedal edema. No cyanosis. Peripheral pulses are palpable. PRODUCTION PLANNING MANAGER: No focal deficit noted grossly. Cranial nerves II through XII intact. PSYCHIATRIC: Appropriate mood and affect and cooperative. SKIN: Warm, dry, pink and intact. DIAGNOSTIC STUDIES: LABORATORY RESULTS: Sodium 124, potassium 5.0, chloride 96, bicarb 15, glucose of 335, BUN of 94, creatinine of 7.80. WBC 7.6, hemoglobin of 10.3, hematocrit 30.2, and platelet count of 246. ASSESSMENT: 1. Acute kidney injury, oliguric. Baseline creatinine 1.3 in the past. UA bland in the past. On lisinopril, Bumex, Aldactone at home. No history of NSAID use. No history of nausea, vomiting, diarrhea, fever, or no recent antibiotic use. 2. Metabolic acidosis. 3. Pseudohyponatremia from hyperglycemia, corrected sodium is 129. 4. Coronary artery disease, status post coronary artery bypass grafting. 5. Diabetes. 6. Hypertension. 7. Generalized weakness. PLAN: 1. Bicarb drip. 2. Hold lisinopril, diuretics and Aldactone for now. 3. Monitor input and output. 4. Avoid nephrotoxic agent. 5. Renal diet. 6. We will send urine lytes. 7. We will get urine and serum osmolality. 8. Uric acid level. 9. UA. 10. TSH level. 11. Urine protein to creatinine ratio. 12. Renal ultrasound. 13. No emergent need of renal replacement therapy. We will follow. Thank you very much for the consult. We will follow along with other physicians. /[id number] Sarika Umana MD MA/JEAN PAUL / MA / MODL /[id number] Electronically signed by Brittany, [facility] Conversion Photography Spotter Cerner at 01/24/2023 10:41 AM CDT documented in this encounter Plan of Treatment Not on file documented as of this encounter Visit Diagnoses Not on filedocumented in this encounter Care Teams Clay Maker Relationship Specialty Start Date End Date Marielos Amaral, AMBULANCE DRIVER PARAMEDIC [address] [address] PCP - General Nurse Practitioner 08/18/23 documented as of this encounter
--- OUTSIDE RECORDS SUMMARY | 2025-05-14 20:33 | XMS_ITS | Encounter Summary ---
Author Organization [employer] ([place], [place], [place], [place]) Address [address] [place] [address] Care Team Providers Care Developer Programmer Analyst Name Role Phone Munir Marielos RESTREPO Primary Care Provider [phone] Encounter Details Date Type Department Care Team (Late st Contact Info) Description 04/22/2022 Transcribed Document [facility] [address] [place] [address] ProviderHaroldo MD [address] [place] [address] Social History Tobacco Use Types [...] Do you speak a language other than Stateless at [facility]? Yes 10/30/2024 Do you want [...] Conversion Note - Historical Provider, - 04/22/2022 10:23 PM CDT Meds to Bed Enrollment Entered On: 04/23/2022 10:39 EDT Performed On: 04/22/2022 22:23 EDT by Almas Gómez, Screwdown Operator Cert Lead Meds to Bed Enrollment Patient Enrollment Decision: : Yes/enroll in meds to bed program Almas Gómez Screwdown Operator Cert Lead - 04/23/2022 10:39 EDT documented in this encounter Plan of Treatment Not on file documented as of this encounter Visit Diagnoses Not on filedocumented in this encounter Care Teams Developer Programmer Analyst Relationship Specialty Start Date End Date Marielos Amaral, CHAIRMAN & CEO [address] [phone] PCP - General Nurse Practitioner 08/18/23 documented as of this encounter
--- OUTSIDE RECORDS SUMMARY | 2025-05-14 20:33 | XMS_ITS | Encounter Summary ---
Author Organization [employer] ([place], [place], [place], [place]) Address [address] [place] [address] Care Team Providers Care Undercover Cop Name Role Phone Munir Marielos RESTREPO Primary Care Provider Encounter Details Date Type Department Care Team (Late st Contact Info) Description 04/22/[address] [facility] [place] Family Medicine [address] [place] [address] ProviderHaroldo MD [address] [place] [address] Social History Tobacco Use Types [...] Do you speak a language other than [place] at [facility]? Yes 10/30/2024 Do you want help with [...] Historical Provider, - 04/22/2022 9:14 AM CDT [facility] Suicide Severity Rating Scale (C-SSRS) Entered On: 04/22/2022 10:04 EDT Performed On: 04/22/2022 10:02 EDT by Shala Cole RN [facility] Suicide Severity Rating Scale (C-SSRS) CSSRS Past Month Wish to be : No CSSRS Past Month Suicidal Thoughts : No CSSRS Lifetime Suicide Behavior : No Suicide Severity Rating Score : 0 Suicide Severity Rating : No Additional Care Required at this time Shala Cole RN - 04/22/2022 10:02 EDT Electronically signed by Brittany [facility] Conversion Robotics Technologist Cerner at 01/24/2023 10:42 AM CDT documented in this encounter Plan of Treatment Not on file documented as of this encounter Visit Diagnoses Not on filedocumented in this encounter Care Teams Undercover Cop Relationship Specialty Start Date End Date Marielos Amaral APRN [address] [id number] PCP - General Nurse Practitioner 08/18/23 documented as of this encounter
--- OUTSIDE RECORDS SUMMARY | 2025-05-14 20:34 | XMS_ITS | Encounter Summary ---
Author Organization [employer] ([place], [place], [place], [place]) Address [address] [place] [address] Care Team Providers Care Lopper Name Role Phone Marielos Amaral KAYE Primary Care Provider Encounter Details Date Type Department Care Team (Late st Contact Info) Description 02/07/2019 Transcribed Document [facility] [address] [place] [address] ProviderHaroldo MD [address] [place] [address] Social History Tobacco Use Types Packs/Day Years Used Date Smoking Tobacco: Never Assessed Sex and Gender Information Value Date Recorded Sex Assigned at Not on file Legal Sex Male 3:45 PM CDT Gender Identity Not on file Sexual Orientation Not on file documented as of this encounter Miscellaneous Notes * Cerner Conversion Note - Haroldo ProviderMD - 02/07/2019 5:00 PM CDT Chart Check - Review Order Profile Entered On: 02/07/2019 17:07 EDT Performed On: 02/07/2019 17:00 EDT by Lina Chaudhary Rn-Flex Team Chart Check Powerplans Initiated/Discontinued as Appropriate : Yes All Active Orders Reviewed : Yes Lina Chaudhary Rn-Flex Team - 02/07/2019 17:07 EDT documented in this encounter Plan of Treatment Not on file documented as of this encounter Visit Diagnoses Not on filedocumented in this encounter Care Teams Lopper Relationship Specialty Start Date End Date Amaral, Marielos, PUBLIC RELATIONS SALES MARKETING [address] [place] [address] PCP - General Nurse Practitioner 08/18/23 documented as of this encounter
--- OUTSIDE RECORDS SUMMARY | 2025-05-14 20:34 | XMS_ITS | Encounter Summary ---
Author Organization [employer] ([place], [place], [place], [place]) Address [address] [place] [address] Care Team Providers Care Sack Lifter Name Role Phone AmaralMarielos roque KAYE Primary Care Provider Encounter Details Date Type Department Care Team (Late st Contact Info) Description 12/12/2020 Transcribed Document [facility] [place] [facility] [place] [address] ProviderHaroldo MD [address] [place], [place] [id number] Social History Tobacco Use Types Packs/Day Years Used Date Smoking Tobacco: Never Assessed Sex and Gender Information Value Date Recorded Sex Assigned at Not on file Legal Sex Male 3:45 PM CDT Gender Identity Not on file Sexual Orientation Not on file documented as of this encounter Miscellaneous Notes * Cerner Conversion Note - Haroldo ProviderMD - 12/12/2020 3:20 PM POURER BUGGY [facility]ADLE Patient Education Materials Follows: Groin Site Care Refer to this sheet in the next few weeks. These instructions provide you with information on caring for yourself after your procedure. Your caregiver may also give you more specific instructions. Your treatment has been planned according to current medical practices, but problems sometimes occur. Call your caregiver if you have any problems or questions after your procedure. HOME CARE INSTRUCTIONS ? You may shower 24 hours after the procedure. Remove the bandage (dressing ) and gently wash the site with plain soap and water. Gently pat the site dry. ? Do not apply powder or lotion to the site. ? Do not sit in a bathtub, swimming pool, or whirlpool for 5 to 7 days. ? No bending, squatting, or lifting anything over 10 pounds (4.5 kg) as directed by your caregiver. ? Inspect the site at least twice daily. ? Do not drive home if you are discharged the same day of the procedure. Have someone else drive you. ? You may drive 24 hours after the procedure unless otherwise instructed by your caregiver. What to expect: ? Any bruising will usually fade within 1 to 2 weeks. ? Blood that collects in the tissue (hematoma ) may be painful to the touch. It should usually decrease in size and tenderness within 1 to 2 weeks. SEEK IMMEDIATE MEDICAL CARE IF: ? You have unusual pain at the groin site or down the affected leg. ? You have redness, warmth, swelling, or pain at the groin site. ? You have drainage (other than a small amount of blood on the dressing). ? You have chills. ? You have a fever or persistent symptoms for more than 72 hours. ? You have a fever and your symptoms suddenly get worse. ? Your leg becomes pale, cool, tingly, or numb. ? You have heavy bleeding from the site. Hold pressure on the site. Document Released: 10/25/2011 Document Revised: 12/14/2012 Document Reviewed: 10/25/2011 ExitCare? Patient Information ?2013 [employer]. Heart-Healthy Eating Plan Heart-healthy meal planning includes: ??? Eating less unhealthy fats. ??? Eating more healthy fats. ??? Making other changes in your diet. Talk with your doctor or a diet specialist (dietitian) to create an eating plan that is right for you. What is my plan? Your doctor may recommend an eating plan that includes: ??? Total fat: % or less of total calories a day. ??? Saturated fat: % or less of total calories a day. ??? Cholesterol: less than mg a day. What are tips for following this plan? Cooking Avoid frying your food. Try to bake, boil, grill, or broil it instead. You can also reduce fat by: ??? Removing the skin from poultry. ??? Removing all visible fats from meats. ??? Steaming vegetables in water or broth. Meal planning ??? At meals, divide your plate into four equal parts: ? Fill one-half of your plate with vegetables and green salads. ? Fill one-fourth of your plate with whole grains. ? Fill one-fourth of your plate with lean protein foods. ??? Eat 4?5 servings of vegetables per day. A serving of vegetables is: ? 1 cup of raw or cooked vegetables. ? 2 cups of raw leafy greens. ??? Eat 4?5 servings of fruit per day. A serving of fruit is: ? 1 medium whole fruit. ? ? cup of dried fruit. ? ? cup of fresh, frozen, or canned fruit. ? ? cup of 100% fruit juice. ??? Eat more foods that have soluble fiber. These are apples, broccoli, carrots, beans, peas, and barley. Try to get 20?30 g of fiber per day. ??? Eat 4?5 servings of nuts, legumes, and seeds per week: ? 1 serving of dried beans or legumes equals ? cup after being cooked. ? 1 serving of nuts is ? cup. ? 1 serving of seeds equals 1 tablespoon. General information ??? Eat more home-cooked food. Eat less restaurant, buffet, and fast food. ??? Limit or avoid alcohol. ??? Limit foods that are high in starch and sugar. ??? Avoid fried foods. ??? Lose weight if you are overweight. ??? Keep track of how much salt (sodium) you eat. This is important if you have high blood pressure. Ask your doctor to tell you more about this. ??? Try to add vegetarian meals each week. Fats ??? Choose healthy fats. These include olive oil and canola oil, flaxseeds, walnuts, almonds, and seeds. ??? Eat more omega-3 fats. These include salmon, mackerel, sardines, tuna, flaxseed oil, and ground flaxseeds. Try to eat fish at least 2 times each week. ??? Check food labels. Avoid foods with trans fats or high amounts of saturated fat. ??? Limit saturated fats. ? These are often found in animal products, such as meats, butter, and cream. ? These are also found in plant foods, such as palm oil, palm kernel oil, and coconut oil. ??? Avoid foods with partially hydrogenated oils in them. These have trans fats. Examples are stick margarine, some tub margarines, cookies, crackers, and other baked goods. What foods can I eat? Fruits All fresh, canned (in natural juice), or frozen fruits. Vegetables Fresh or frozen vegetables (raw, steamed, roasted, or grilled). Green salads. Grains Most grains. Choose whole wheat and whole grains most of the time. Rice and pasta, including brown rice and pastas made with whole wheat. Meats and other proteins Lean, well-trimmed beef, veal, pork, and david. Chicken and turkey without skin. All fish and shellfish. Wild duck, rabbit, pheasant, and venison. Egg whites or low-cholesterol egg substitutes. Dried beans, peas, lentils, and tofu. Seeds and most nuts. Dairy Low-fat or nonfat cheeses, including ricotta and mozzarella. Skim or 1% milk that is liquid, powdered, or evaporated. Buttermilk that is made with low-fat milk. Nonfat or low-fat yogurt. Fats and oils Non-hydrogenated (trans-free) margarines. Vegetable oils, including soybean, sesame, sunflower, olive, peanut, safflower, corn, canola, and cottonseed. Salad dressings or mayonnaise made with a vegetable oil. Beverages Mineral water. Coffee and tea. Diet carbonated beverages. Sweets and desserts Sherbet, gelatin, and fruit ice. Small amounts of dark chocolate. Limit all sweets and desserts. Seasonings and condiments All seasonings and condiments. The items listed above may not be a complete list of foods and drinks you can eat. Contact a dietitian for more options. What foods should I avoid? Fruits Canned fruit in heavy syrup. Fruit in cream or butter sauce. Fried fruit. Limit coconut. Vegetables Vegetables cooked in cheese, cream, or butter sauce. Fried vegetables. Grains Breads that are made with saturated or trans fats, oils, or whole milk. Croissants. Sweet rolls. Donuts. High-fat crackers, such as cheese crackers. Meats and other proteins Fatty meats, such as hot dogs, ribs, sausage, serna, rib-eye roast or steak. High-fat deli meats, such as salami and bologna. Caviar. Domestic duck and goose. Organ meats, such as liver. Dairy Cream, sour cream, cream cheese, and creamed cottage cheese. Whole-milk cheeses. Whole or 2% milk that is liquid, evaporated, or condensed. Whole buttermilk. Cream sauce or high-fat cheese sauce. Yogurt that is made from whole milk. Fats and oils Meat fat, or shortening. Sweet Grass butter, hydrogenated oils, palm oil, coconut oil, palm kernel oil. Solid fats and shortenings, including serna fat, salt pork, lard, and butter. Nondairy cream substitutes. Salad dressings with cheese or sour cream. Beverages Regular sodas and juice drinks with added sugar. Sweets and desserts Frosting. Pudding. Cookies. Cakes. Pies. Milk chocolate or white chocolate. Buttered syrups. Full-fat ice cream or ice cream drinks. The items listed above may not be a complete list of foods and drinks to avoid. Contact a dietitian for more information. Summary ??? Heart-healthy meal planning includes eating less unhealthy fats, eating more healthy fats, and making other changes in your diet. ??? Eat a balanced diet. This includes fruits and vegetables, low-fat or nonfat dairy, lean protein, nuts and legumes, whole grains, and heart-healthy oils and fats. This information is not intended to replace advice given to you by your health care provider. Make sure you discuss any questions you have with your health care provider. Document Released: 03/23/2013 Document Revised: 11/26/2018 Document Reviewed: 10/30/2018 [employer] Patient Education ? 2020 [employer] Moderate Conscious Sedation, Adult, Care After These instructions provide you with information about caring for yourself after your procedure. Your health care provider may also give you more specific instructions. Your treatment has been planned according to current medical practices, but problems sometimes occur. Call your health care provider if you have any problems or questions after your procedure. What can I expect after the procedure? After your procedure, it is common: ??? To feel sleepy for several hours. ??? To feel clumsy and have poor balance for several hours. ??? To have poor judgment for several hours. ??? To vomit if you eat too soon. Follow these instructions at home: For at least 24 hours after the procedure: ??? Do not: ? Participate in activities where you could fall or become injured. ? Drive. ? Use heavy machinery. ? Drink alcohol. ? Take sleeping pills or medicines that cause drowsiness. ? Make important decisions or sign legal documents. ? Take care of children on your own. ??? Rest. Eating and drinking ??? Follow the diet recommended by your health care provider. ??? If you vomit: ? Drink water, juice, or soup when you can drink without vomiting. ? Make sure you have little or no nausea before eating solid foods. General instructions ??? Have a responsible adult stay with you until you are awake and alert. ??? Take [id number] and prescription medicines only as told by your health care provider. ??? If you smoke, do not smoke without supervision. ??? Keep all follow-up visits as told by your health care provider. This is important. Contact a health care provider if: ??? You keep feeling nauseous or you keep vomiting. ??? You feel light-headed. ??? You develop a rash. ??? You have a fever. Get help right away if: ??? You have trouble breathing. This information is not intended to replace advice given to you by your health care provider. Make sure you discuss any questions you have with your health care provider. Document Released: 07/13/2014 Document Revised: 09/04/2018 Document Reviewed: 01/11/2017 [employer] Patient Education ? 2020 [employer]. FAQ - Patient COVID-19 testing Why do I need a COVID-19 test in the hospital? We are testing patients as part of an overall effort to ensure the safety of our patients, staff and providers, and to limit the spread of the novel coronavirus throughout our community. What happens if I test positive for COVID-19? Any scheduled elective procedure will be postponed and treatment for the coronavirus will follow the protocol that is currently in place. If you are admitted to the hospital, we will use droplet precautions for patients who test positive for COVID-19. If I'm a patient, should I wear a mask? Yes. When you are in your room alone, you may remove your mask. When anyone enters your room, you should put your mask back on. Will I be allowed to have visitors if I am admitted to the hospital with COVID-19? As part of the standard care for COVID-19 patients, visitors will not be allowed to protect them from potential exposure to the novel coronavirus. If you have a health care support person with you during a pending test and the test comes back positive, your visitor will be asked to leave and follow up with their primary care provider. Public health may reach out to them to complete contact tracing. Will my status as COVID-19 positive be reported? Because COVID-19 is a public health threat, all positive cases are reported through the local health department and the [place] Department for Public Health. Those organizations are responsible for monitoring public health threats. What is contact tracing? The public health departments at the state and local levels use contact tracing to prevent the spread of infectious disease. They will work to identify people who have COVID-19 and their contacts who may have been exposed. What does contact tracing involve? Typically, a contact tracer will interview patients with COVID-19 to identify everyone with whom they have had close contact during the time they may have been infectious and then notify those contacts of potential exposure and refer them for testing. They may monitor the contacts for symptoms of COVID-19 and connect the contacts with services they may need during a recommended self-quarantine period. The patient's name is not revealed to anyone during the contact tracing interviews, even if a contact asks. Who would be considered a close contact ? According to the CDC, a close contact is defined as someone who was within 6 feet of an infected person for at least 15 minutes, starting from 48 hours before the person began feeling sick until the time the patient was isolated. What can a close contact expect during this process? A contact tracer from the health department will contact that person to inform them they have been exposed to COVID-19. If that happens, the contact should self-quarantine for 14 days, starting from the last date of possible exposure, monitor their health, wear a face covering and maintain social distancing - at least 6 feet from others at all times. Should a close contact seek medical care? Close contacts should take their temperature twice a day, watch for COVID-19 symptoms and notify the health department if they develop symptoms. They should also notify people with whom they have had recent close contact if they become ill. They should seek medical care if symptoms worsen or become severe, including trouble breathing, persistent pain or pressure in the chest, confusion, inability to wait or stay awake, or bluish lips or face. Steps to Help Prevent the Spread of COVID-19 if You Are Sick In all cases, follow the guidance of your health care provider and local health department. Your local health department determines the length of time for quarantine and will notify you with detailed information. Monitor your symptoms. Common symptoms of COVID-19 include fever, fatigue, diarrhea/vomiting, loss of taste and smell, and cough. Trouble breathing is a more serious symptom that means you should get medical attention. If you develop emergency warning signs for COVID-19 get medical attention immediately. Emergency warning signs include*: ??? Trouble breathing ??? Persistent pain or pressure in the chest ??? New confusion or inability to arouse ??? Bluish lips or face *This list is not all inclusive. Please consult your medical provider for any other symptoms that are severe or concerning. Call 911 if you have a medical emergency. If you have a medical emergency and need to call 911, notify the explosives mixer operator that you have, or think you might have, COVID-19. If possible, put on a facemask before medical help arrives. Stay home except to get medical care. ??? Stay home: Most people with COVID-19 have mild illness and can recover at home without medical care. Do not leave your home, except to get medical care. Do not visit public areas. ??? Stay in touch with your doctor. Call before you get medical care. Be sure to get care if you have trouble breathing, or have any other emergency warning signs, or if you think it is an emergency. Separate yourself from other people in your home; this is known as home isolation. ??? Stay away from others: As much as possible, stay away from others. You should stay in a specific sick room if possible, and away from other people in your home. Use a separate bathroom, if available. Call ahead before visiting your doctor. ??? Call ahead: Many medical visits for routine care are being postponed or done by phone or telemedicine. If you have a medical appointment that cannot be postponed, call your doctor's office, and tell them you have or may have COVID-19. This will help the office protect themselves and other patients. If you are sick, wear a facemask in the following situations, if available. ??? If you are sick: You should wear a facemask, if available, when you are around other people (including before you enter a health care provider's office). ??? If you are caring for others: If the person who is sick is not able to wear a facemask (for example, because it causes trouble breathing), then as their caregiver, you should wear a facemask when in the same room with them. Visitors, other than caregivers, are not recommended. Cover your coughs and sneezes. ??? Cover: Cover your mouth and nose with a tissue when you cough or sneeze. ??? Dispose: Throw used tissues into a lined trash can. ??? Wash hands: Immediately wash your hands with soap and water for at least 20 seconds. If soap and water are not available, clean your hands with an alcohol-based hand pantry goods maker that contains at least 60% alcohol. Clean your hands often. ??? Wash hands: Wash your hands often with soap and water for at least 20 seconds when visibly dirty. This is especially important after blowing your nose, coughing or sneezing, and going to the bathroom, and before eating or preparing food. ??? Hand pantry goods maker: Use an alcohol-based hand pantry goods maker with at least 60% alcohol, covering all surfaces of your hands and rubbing them together until they feel dry. ??? Avoid touching: Avoid touching your eyes, nose and mouth with unwashed hands. Avoid sharing personal household items. ??? Do not share: Do not share dishes, drinking glasses, cups, eating utensils, towels or bedding with other people in your home. ??? Wash thoroughly after use: After using these items, wash them thoroughly with soap and water or put them in the summer sessions director. Clean all high-touch surfaces every day. Clean high-touch surfaces in your isolation area ( sick room and bathroom) every day; let a caregiver clean and disinfect high-touch surfaces in other areas of the home. ??? Clean and disinfect: Routinely clean high-touch surfaces in your sick room and bathroom. Let someone else clean and disinfect surfaces in common areas, but not your bedroom and bathroom. ? If a caregiver or other person needs to clean and disinfect a sick person's bedroom or bathroom, they should do so on an as-needed basis. The caregiver/other person should wear a mask and wait as long as possible after the sick person has used the bathroom. ? High-touch surfaces include phones, remote controls, counters, tabletops, doorknobs, bathroom fixtures, toilets, keyboards, tablets and bedside tables. ??? Clean and disinfect areas that may have blood, stool, or body fluids on them. ??? Household fabricator special items and disinfectants: Clean the area or item with soap and water or another detergent if it is dirty. Then, use a household disinfectant. ?? Be sure to follow the instructions on the label to ensure safe and effective use of the product. Many products recommend keeping the surface wet for several minutes to ensure germs are killed. Many also recommend precautions such as wearing gloves and making sure you have good ventilation during use of the product. ?? Most EPA-registered household disinfectants should be effective. A full list of disinfectants can be found here: https://www.epa.gov/pesticide-registration/kksf-w-kditsimkqkvhz-ufo-xxsctjz-hm rs-cov-2 Radiology Coronary Angiogram A coronary angiogram is an X-ray procedure that is used to examine the arteries in the heart. In this procedure, a dye (contrast dye) is injected through a long, thin tube (catheter). The catheter is inserted through the groin, wrist, or arm. The dye is injected into each artery, then X-rays are taken to show if there is a blockage in the arteries of the heart. This procedure can also show if you have valve disease or a disease of the aorta, and it can be used to check the overall function of your heart muscle. You may have a coronary angiogram if: ??? You are having chest pain, or other symptoms of angina, and you are at risk for heart disease. ??? You have an abnormal electrocardiogram (ECG) or stress test. ??? You have chest pain and heart failure. ??? You are having irregular heart rhythms. ??? You and your health care provider determine that the benefits of the test information outweigh the risks of the procedure. Let your health care provider know about: ??? Any allergies you have, including allergies to contrast dye. ??? All medicines you are taking, including vitamins, herbs, eye drops, creams, and kvcc-khm-stqfiur medicines. ??? Any problems you or family members have had with anesthetic medicines. ??? Any blood disorders you have. ??? Any surgeries you have had. ??? History of kidney problems or kidney failure. ??? Any medical conditions you have. ??? Whether you are or may be . What are the risks? Generally, this is a safe procedure. However, problems may occur, including: ??? Infection. ??? Allergic reaction to medicines or dyes that are used. ??? Bleeding from the access site or other locations. ??? Kidney injury, especially in people with impaired kidney function. ??? Stroke (rare). ??? Heart attack (rare). ??? Damage to other structures or organs. What happens before the procedure? Staying hydrated Follow instructions from your health care provider about hydration, which may include: ??? Up to 2 hours before the procedure ? you may continue to drink clear liquids, such as water, clear fruit juice, black coffee, and plain tea. Eating and drinking restrictions Follow instructions from your health care provider about eating and drinking, which may include: ??? 8 hours before the procedure ? stop eating heavy meals or foods such as meat, fried foods, or fatty foods. ??? 6 hours before the procedure ? stop eating light meals or foods, such as toast or cereal. ??? 2 hours before the procedure ? stop drinking clear liquids. General instructions ??? Ask your health care provider about: ? Changing or stopping your regular medicines. This is especially important if you are taking diabetes medicines or blood thinners. ? Taking medicines such as ibuprofen. These medicines can thin your blood. Do not take these medicines before your procedure if your health care provider instructs you not to, though aspirin may be recommended prior to coronary angiograms. ??? Plan to have someone take you home from the hospital or clinic. ??? You may need to have blood tests or X-rays done. What happens during the procedure? An IV tube will be inserted into one of your veins. ??? You will be given one or more of the following: ? A medicine to help you relax (sedative). ? A medicine to numb the area where the catheter will be inserted into an artery (local anesthetic). ??? To reduce your risk of infection: ? Your health care team will wash or sanitize their hands. ? Your skin will be washed with soap. ? Hair may be removed from the area where the catheter will be inserted. ??? You will be connected to a continuous ECG monitor. ??? The catheter will be inserted into an artery. The location may be in your groin, in your wrist, or in the fold of your arm (near your elbow). ??? A type of X-ray (fluoroscopy) will be used to help guide the catheter to the opening of the blood vessel that is being examined. ??? A dye will be injected into the catheter, and X-rays will be taken. The dye will help to show where any narrowing or blockages are located in the heart arteries. ??? Tell your health care provider if you have any chest pain or trouble breathing during the procedure. ??? If blockages are found, your health care provider may perform another procedure, such as inserting a coronary stent. The procedure may vary among health care providers and hospitals. What happens after the procedure? After the procedure, you will need to keep the area still for a few hours, or for as long as told by your health care provider. If the procedure is done through the groin, you will be instructed to not bend and not cross your legs. ??? The insertion site will be checked frequently. ??? The pulse in your foot or wrist will be checked frequently. ??? You may have additional blood tests, X-rays, and a test that records the electrical activity of your heart (ECG). ??? Do not drive for 24 hours if you were given a sedative. Summary ??? A coronary angiogram is an X-ray procedure that is used to look into the arteries in the heart. ??? During the procedure, a dye (contrast dye) is injected through a long, thin tube (catheter). The catheter is inserted through the groin, wrist, or arm. ??? Tell your health care provider about any allergies you have, including allergies to contrast dye. ??? After the procedure, you will need to keep the area still for a few hours, or for as long as told by your health care provider. This information is not intended to replace advice given to you by your health care provider. Make sure you discuss any questions you have with your health care provider. Document Released: 03/28/2004 Document Revised: 09/04/2018 Document Reviewed: 07/04/2017 [employer] Patient Education ? 2020 [employer]. documented in this encounter Plan of Treatment Not on file documented as of this encounter Visit Diagnoses Not on filedocumented in this encounter Care Teams Sack Lifter Relationship Specialty Start Date End Date Marielos Amaral APRN [address] [address] PCP - General Nurse Practitioner 08/18/23 documented as of this encounter
--- OUTSIDE RECORDS SUMMARY | 2025-05-14 20:34 | XMS_ITS | Encounter Summary ---
Author Organization [employer] ([place], [place], [place], [place]) Address [address] [place] [address] Care Team Providers Care Security Advisor Name Role Phone Munir Marielos RESTREPO Primary Care Provider Encounter Details Date Type Department Care Team (Late st Contact Info) Description 04/25/2022 Transcribed Document [facility] [place] Family Medicine [address] [place] [address] ProviderHaroldo MD [address] [place] [address] Social History Tobacco Use Types [...] Do you speak a language other than Scottish at [facility]? Yes 10/30/2024 Do you want [...] Cerner Conversion Note - Historical Provider, - 04/25/2022 4:15 PM CDT On Going Discharge Planning Entered On: 04/25/2022 16:17 EDT Performed On: 04/25/2022 16:15 EDT by LEXX LOWRY, RN-Telegraph And Teletype OperatorCattle And Wheat Farmer Progress Note Discharge Arrangements : Patient Post-Acute Information Patient Name: ZACKARY ANTOINE Gender: Male : 52 Age: 71 Years No Post-Acute Placement(s) Listed No Post-Acute Service(s) Listed No Cur[place]pan Referral(s) Listed Barriers to Discharge Identified : Clinical Condition of Patient Barriers to Discharge Unresolved : Clinical Condition of Patient Patient Discharge Goal : Home [facility] Quality Web Info Shared w Pt/Fam : No Does the Patient have a Floor to SNF Benefit? : No Is the Patient Meeting Medical Necessity : Yes Physician Agreeable to Move Forward with D/C Plan? : Yes Did you Attend Multidisciplinary Rounds? 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 CM attempted to meet with pt this evening for CM eval, but pt sleeping soundly. CM will need to f/u with pt for full CM eval and send referrals as appropriate, as pt will likely benefit from HH vs inpt rehab. TYSHAWN RIGGINS, RN-Telegraph And Teletype Operator ED - 04/23/22 23:38:53 LEXX LOWRY, RN-Telegraph And Teletype Operator - 04/25/2022 16:15 EDT documented in this encounter Plan of Treatment Not on file documented as of this encounter Visit Diagnoses Not on filedocumented in this encounter Care Teams Security Advisor Relationship Specialty Start Date End Date Marielos Amaral APRN [address] [address] PCP - General Nurse Practitioner 08/18/23 documented as of this encounter
--- OUTSIDE RECORDS SUMMARY | 2025-05-14 20:34 | XMS_ITS | Encounter Summary ---
Author Organization [employer] ([place], [place], [place], [place]) Address [address] [place] [address] Care Team Providers Care Lace Mender Name Role Phone Munir Brii RESTREPO Primary Care Provider [phone] Encounter Details Date Type Department Care Team (Late st Contact Info) Description 04/26/2022 Transcribed Document [facility] [place] [address] [place] [address] ProviderHaroldo MD [address] [place] [address] Social History Tobacco Use Types [...] Do you speak a language other than Croatian at [facility]? Yes 10/30/2024 Do you [...] Cerner Conversion Note - Historical Provider, - 04/26/2022 12:33 PM CDT Stroke/Warfarin Instructions Entered On: 04/26/2022 12:33 EDT Performed On: 04/26/2022 12:33 EDT by BRII KAUR RN-PATIENT CARE BEDSIDE NON-EXEMPT Stroke/Warfarin Instructions Stroke/TIA Discharge Ins : N/A Warfarin Discharge Ins : N/A BRII KAUR RN-PATIENT CARE BEDSIDE NON-EXEMPT - 04/26/2022 12:33 EDT Education Topics: Anticoagulant Education Anticoagulant : Anticoagulant other than warfarin Compliance Issues *Q : Verbalizes understanding Diet *Q : Verbalizes understanding Adverse drug reactions/interactions *Q : Verbalizes understanding Action/Interaction with Other Drugs : Verbalizes understanding Follow-up care/monitoring *Q : Verbalizes understanding Follow-up Care Details : Physician's office/clinic BRII KAUR RN-PATIENT CARE BEDSIDE NON-EXEMPT - 04/26/2022 12:33 EDT documented in this encounter Plan of Treatment Not on file documented as of this encounter Visit Diagnoses Not on filedocumented in this encounter Care Teams Lace Mender Relationship Specialty Start Date End Date Brii Amaral APRN [address] [address] PCP - General Nurse Practitioner 08/18/23 documented as of this encounter
--- OUTSIDE RECORDS SUMMARY | 2025-05-14 20:34 | XMS_ITS | Clinical Summary ---
Author Organization [facility] Address [address] [place] [address] Care Team Providers Care Lodge Attendant Name Role Phone Marielos Amaral KAYE Primary Care Provider [phone] Allergies No known active allergies Medications hydrALAZINE (Apresoline) 50 MG tabletIndications :Essential hypertension Take 1.5 tablets (75 mg total) by mouth 3 (three) times a day. 135 tablet 3 2 Active ergocalciferol (Drisdol) 1.25 MG (58617 UT) capsuleIndication s:Vitamin D deficiency 50,000 units [...] (07/08/2022): Regulatory Update July 2022 Hypertension 05/14/2022 Immunizations Immunization Administration Dates Next Due Influenza, [...] Date Last Done Comments [facility]-Depression Screening 1950 [facility]-/Child/Adol SDOH Screenings 1950 [facility]- SDOH Screenings 12/19/1969 [facility]-Adult SDOH Screenings 12/19/1969 CT Colonography 12/19/1996 Colonoscopy 12/19/1996 FIT-DNA 12/19/1996 FIT 12/19/1996 FOBT 12/19/1996 Sigmoidoscopy 12/19/1996 [facility]-Colorectal Cancer Screening 12/19/1996 [facility]-Zoster Vaccines (1 of 2) 12/19/2001 [facility]-Pneumococcal Vaccine: 50+ Years (2 of 2 - PCV) 02/16/2018 02/16/2017 HPS-HOBGU-32 Vaccine ( season) 2024 08/13/2022, 02/02/2021, 01/02/2021 [facility]-Influenza Vaccine (#1) 06/06/202508/13, 08/22/2021, 07/11/2020, Additional history exists [facility]-RSV Vaccine: [...] on patient's age to complete this topic Insurance [facility] MEDICARE Care Teams Lodge Attendant Relationship Specialty Start Date End Date Marielos Amaral, KAYE [address] [place] [address] PCP - General 03/26/22
--- OUTSIDE RECORDS SUMMARY | 2025-05-14 20:34 | XMS_ITS | Encounter Summary ---
Author Organization [employer] ([place], [place], [place], [place]) Address [address] [place] [address] Care Team Providers Care Senior Project Architect Name Role Phone AmaralMarielos KAYE Primary Care Provider Encounter Details Date Type Department Care Team (Late st Contact Info) Description 11/01/2020 Transcribed Document [facility] [place] Family Medicine [address] [place] [address] ProviderHaroldo MD [address] [place], [place] [address] Social History Tobacco Use Types Packs/Day Years Used Date Smoking Tobacco: Never Assessed Sex and Gender Information Value Date Recorded Sex Assigned at Not on file Legal Sex Male 3:45 PM CDT Gender Identity Not on file Sexual Orientation Not on file documented as of this encounter Miscellaneous Notes * Cerner Conversion Note - Historical ProviderMD - 11/01/2020 8:30 PM IDENTIFICATION AND RECORDS COMMANDER CR Chest 1 Vw Portable Ordered: 10/31/2020 Modified Reason for Exam: SOA 11/01/2020 08:09 11/01/2020 20:30 (ANABELA FRENCH PA) Reviewed by Provider, No further action required X1 - Noted/treated 11/01/2020 11:31 (ANISA CRAVEN) Provider Review Required documented in this encounter Plan of Treatment Not on file documented as of this encounter Visit Diagnoses Not on filedocumented in this encounter Care Teams Senior Project Architect Relationship Specialty Start Date End Date Marielos Amaral, CLOTH SHEARER [address] [place] [address] PCP - General Nurse Practitioner 08/18/23 documented as of this encounter
--- OUTSIDE RECORDS SUMMARY | 2025-05-14 20:34 | XMS_ITS | Encounter Summary ---
Author Organization [employer] ([place], [place], [place], [place]) Address [address] [place] [address] Care Team Providers Care Smoke Jumper Supervisor Name Role Phone Munir Marielos RESTREPO Primary Care Provider Encounter Details Date Type Department Care Team (Late st Contact Info) Description 04/25/2022 Transcribed Document [facility] [place] Family Medicine [address] [place] [address] ProviderHaroldo MD [address] [place] [address] Social History Tobacco Use Types [...] Do you speak a language other than Welsh at [facility]? Yes 10/30/2024 Do you want help [...] Conversion Note - Historical Provider, - 04/25/2022 9:29 AM CDT Patient: ZACKARY ANTOINE Age: 71 [...] Other (See Comment) Eliquis: 2.5 mg, Oral, [id number] Flomax: 0.4 mg, Oral, Daily Lokelma: 15 Gram, Oral, 1-Time Metoprolol Succinate ER: 50 mg, Oral, Daily Normal Saline 1,000 mL: 100 mL/Hr, IntraVENous Rocephin: 1 Gram, 100 mL/Hr, IV Piggyback, [id number] Tylenol: 650 mg, Oral, Q4H, PRN: Pain (Mild 1-3) Vitamin D3: 1,000 Units, Oral, Daily Zofran: 4 mg, IV Push, Q4H, PRN: Nausea amiodarone: 200 mg, Oral, Daily atorvastatin: 40 mg, Oral, At Bedtime cyanocobalamin: 1,000 mcg, Oral, Daily glucagon: 1 mg, IntraMuscular, Q15Min, PRN: Other (See Comment) glucose 4 g oral tablet, chewable: 16 Gram, 4 Tab, Chew, Q15Min, PRN: Other (See Comment) glucose 40% oral gel: 15 Gram, 37.5 mL, Oral, Q15Min, PRN: Other (See Comment) hydrALAZINE: 50 mg, Oral, BID insulin glargine: 15 Units, SubCutaneous, Daily insulin lispro sliding scale: Scale A:, SubCutaneous, AC and at Bedtime levothyroxine: 100 mcg, Oral, Daily pantoprazole: 40 mg, Oral, Daily Documented Medications Documented Eliquis 5 mg oral tablet: 1 Tab, Oral, BID, 60 Tab, 0 Refill(s) Flomax 0.4 mg oral capsule: 1 Cap, Oral, Daily, 0 Refill(s) Januvia 25 mg oral tablet: 1 Tab, Oral, Daily, 30 Tab, 0 Refill(s) Metoprolol Succinate ER 50 mg oral tablet, extended release: 1 Tab, Oral, Daily, 0 Refill(s) Synthroid 100 mcg (0.1 mg) oral tablet: 1 Tab, Oral, Daily, 60 Tab, 0 Refill(s) Vitamin B12 1000 mcg oral tablet: 1 Tab, Oral, Daily, 30 Tab, 0 Refill(s) amiodarone 200 mg oral tablet: 1 Tab, Oral, Daily, 30 Tab, 0 Refill(s) atorvastatin 40 mg oral tablet: 1 Tab, Oral, At Bedtime, 0 Refill(s) bumetanide 1 mg oral tablet: 1 Tab, Oral, Daily, 0 Refill(s) ergocalciferol 1.25 mg (50,000 intl units) oral capsule: 1 Cap, Oral, Weekly, 0 Refill(s) hydrALAZINE 50 mg oral tablet: 1 Tab, Oral, BID, 60 Tab, 0 Refill(s) lisinopril 40 mg oral tablet: 1 Tab, Oral, Daily, 0 Refill(s) omeprazole 40 mg oral delayed release capsule: 1 Cap, Oral, Daily, before a meal, 30 Cap, 0 Refill(s) spironolactone 25 mg oral tablet: 1 Tab, Oral, Daily, 180 Tab, 0 Refill(s), Medications (24) Active Scheduled: (14) amiodarone 200 mg tab 200 mg 1 Tab, Oral, Daily apixaban 2.5 mg tab 2.5 mg 1 Tab, Oral, [id number] atorvastatin 40 mg tab 40 mg 1 Tab, Oral, At Bedtime cefTRIAXone 1 Gram, IV Piggyback, [id number] cholecalciferol 1,000 unit tab 1,000 Units 1 Tab, Oral, Daily cyanocobalamin 1,000 mcg tab 1,000 mcg 1 Tab, Oral, Daily hydrALAZINE 50 mg tab 50 mg 1 Tab, Oral, BID insulin glargine 1 unit/0.01 mL inj 15 Units 0.15 mL, SubCutaneous, Daily insulin lispro 1 unit/0.01 mL inj Scale A:, SubCutaneous, AC and at Bedtime levothyroxine 100 mcg tab 100 mcg 1 Tab, Oral, Daily metoprolol succinate XL 50 mg tab 50 mg 1 Tab, Oral, Daily pantoprazole EC 40 mg tab 40 mg 1 Tab, Oral, Daily sodium zirconium cyclosilicate 5 g pwd 15 Gram 3 Packet, Oral, 1-Time tamsulosin CR 0.4 mg cap 0.4 mg 1 Cap, Oral, Daily Continuous: (1) NaCl 0.9% 1,000 mL 1,000 mL, IntraVENous, 100 mL/Hr PRN: (9) acetaminophen 325 mg tab [...] list: Medical Atrial fibrillation / SNOMED CT 39714448 / Confirmed CAD - Coronary artery disease / SNOMED CT 7919425210 / Confirmed Cardiomyopathy / SNOMED CT 414781837 / Confirmed Acute cerebrovascular accident (CVA) / SNOMED CT 760502726 / Confirmed History of obstructive sleep apnea / IMO 39198861 / Confirmed HLD - Hyperlipidemia / SNOMED CT 647296853 / Confirmed HTN - Hypertension / SNOMED CT 7705707551 / Confirmed Type 2 diabetes mellitus / SNOMED CT 385049427 / Confirmed, Active Problems (20) Acute cerebrovascular [...] 24 hrs) Last Charted Minimum Maximum Temp 97.7 (APR 24:32) 97.7 (APR 24:32) 98 (APR 24:06) Apical HR 74 (APR 24 22:01) 72 (APR 24 15:41) 75 (APR 24 12:44) Mon HR 72 (APR 24 23:32) 72 (APR 24 14:05) 75 (APR 24 10:06) Resp Rate 18 (APR 24 18:52) 18 (APR 24 10:06) 18 (APR 24 10:06) SBP 101 (APR 24 23:32) 101 (APR 24 23:32) H 160 (APR 24 15:41) DBP L 47 (APR 24 23:32) L 47 (APR 24 23:32) 77 (APR 24 14:05) MAP 72 (APR 24 23:32) 72 (APR 24 23:32) 113 (APR 24 15:41) SpO2 98 (APR 24 23:32) 95 (APR 24 14:05) 100 (APR 24 18:52) General: Alert and oriented, No acute distress. Eye: Extraocular movements are intact, Normal conjunctiva. HENT: Normocephalic, Normal hearing. Neck: Supple, No jugular venous distention, No thyromegaly. Respiratory: Lungs are clear to auscultation, Respirations are non-labored, Symmetrical chest wall expansion. Cardiovascular: Normal rate, No edema. Gastrointestinal: Soft, Non-tender, Non-distended. Integumentary: Warm, Dry, [place]. Neurologic: Alert, Oriented, No focal deficits. Psychiatric: Cooperative, Appropriate mood & affect. Review / Management Results review: Labs (Last four charted values) WBC 6.1 (APR 25) 5.1 (APR 23) 5.2 (APR 23) 7.6 (APR 22) HB L 9.2 (APR 25) L 9.6 (APR 23) L 9.6 (APR 23) L 10.3 (APR 22) HCT L 27.6 (APR 25) L 28.0 (APR 23) L 27.9 (APR 23) L 30.2 (APR 22) Plt 236 (APR 25) 239 (APR 23) 230 (APR 23) 246 (APR 22) Na L 134 (APR 25) L 134 (APR 24) L 129 (APR 23) L 130 (APR 22) K H 5.4 (APR 25) 5.1 (APR 24) 4.4 (APR 23) 4.7 (APR 22) Cl 106 (APR 25) 104 (APR 24) L 98 (APR 23) 102 (APR 22) CO2 23 (APR 25) 23 (APR 24) 21 (APR 23) L 19 (APR 22) BUN H 50 (APR 25) H 72 (APR 24) C 91 (APR 23) C 97 (APR 22) Cr H 3.30 (APR 25) H 4.70 (APR 24) H 7.40 (APR 23) H 7.80 (APR 22) Glu R H 174 (APR 25) H 203 (APR 24) H 244 (APR 23) H 160 (APR 22) Ca 8.9 (APR 25) 9.0 (APR 24) 8.4 (APR 23) 8.5 (APR 22) AST 28 (APR 22) ALT 56 (APR 22) ALK P 82 (APR 22) T Bili 0.6 (APR 22) PTN 7.3 (APR 22) ALB L 3.0 (APR 24) 3.4 (APR 22) . APR 25 06:55 L 134 106 H 50 / H 174 H 5.4 23 H 3.30 \ APR 25 06:55 \ L 9.2 / 6.1 236 / L 27.6 \ FINDINGS: Limited images of the liver [...] protein + Blood RBC 11-20. WBC 6-10. Improving. 2- Metabolic acidosis - improved. 3- Hyponatremia - pseudohyponatremia from hyperglycemia -corrected 132- Improving. 4- CAD s/p CABG 5- DM 6- HTN 7- Generalized weakness. Plan: - Dose of Lokelma - Hyperkalemia - Low K diet. - Continue with IV hydration. UOP excellent. - Hold lisinopril, Diuretics and Aldactone for now. - Monitor I/O strictly - Avoid nephrotoxic agents. - renal diet. - No emergent need of HUMAN CAPITAL CONSULTANT. Will follow. If renal function continues to improve tomorrow with K within normal limits - Can be discharge. Follow up with LAMBERTO in 2 weeks @ [facility] with renal function panel and UA. documented in this encounter Plan of Treatment Not on file documented as of this encounter Visit Diagnoses Not on filedocumented in this encounter Care Teams Smoke Jumper Supervisor Relationship Specialty Start Date End Date Marielos Amaral, LABORATORY MECHANIC HELPER [address] [address] PCP - General Nurse Practitioner 08/18/23 documented as of this encounter
--- OUTSIDE RECORDS SUMMARY | 2025-05-14 20:34 | XMS_ITS | Encounter Summary ---
Author Organization [employer] ([place], [place], [place], [place]) Address [address] [place] [address] Care Team Providers Care Clinical Aide Name Role Phone Munir Brii RESTREPO Primary Care Provider Encounter Details Date Type Department Care Team (Late st Contact Info) Description 04/26/2022 Transcribed Document [facility] [place] Family Medicine [address] [place] [address] ProviderHaroldo MD [address] [place] [address] Social History Tobacco Use Types [...] Do you speak a language other than Portuguese at [facility]? Yes 10/30/2024 [...] Conversion Note - Historical Provider, - 04/26/2022 12:34 PM CDT Nursing Discharge Summary Entered On: 04/26/2022 12:36 EDT Performed On: 04/26/2022 12:34 EDT by BRII KAUR RN-PATIENT CARE BEDSIDE NON-EXEMPT Discharge Documentation Discharge Date/Time : 04/26/2022 13:30 EDT Transporter Signature : BRII KAUR RN-PATIENT CARE BEDSIDE NON-EXEMPT Patient Disposition, General : Discharge Discharge To : Home with ambulatory/outpatient follow-up Mode Of Departure, General Discharge : Wheelchair Accompanied By, Discharge : Spouse IV Discontinued : Yes Personal Belongings With Patient : Yes Pt's Own Supply of Medications Returned : No patient supply of medications to return Prescriptions Given to Patient : No Medications Given to Patient : Yes Discharge Instructions Reviewed With, Opportunity For Questions Given : Spouse Patient Education Completed : Yes Number of Medications Given : 2 Teaching Method : Explanation, Printed materials Teaching Evaluation : Returns demonstration, Verbalizes understanding Education Comment : n/a Worker's Compensation Paperwork Completed : No BRII KAUR RN-PATIENT CARE BEDSIDE NON-EXEMPT - 04/26/2022 12:34 EDT documented in this encounter Plan of Treatment Not on file documented as of this encounter Visit Diagnoses Not on filedocumented in this encounter Care Teams Clinical Aide Relationship Specialty Start Date End Date Brii Amaral APRN [address] [phone] PCP - General Nurse Practitioner 08/18/23 documented as of this encounter
--- OUTSIDE RECORDS SUMMARY | 2025-05-14 20:34 | XMS_ITS | Encounter Summary ---
Author Organization [employer] ([place], [place], [place], [place]) Address [address] [place] [address] Care Team Providers Care Lead Sustainability Specialist Name Role Phone Marielos Amaral KAYE Primary Care Provider Encounter Details Date Type Department Care Team (Late st Contact Info) Description 10/31/2020 Transcribed Document [facility] [place] Family Medicine [address] [place] [address] ProviderHaroldo MD [address] [place], [place] [address] Social History Tobacco Use Types Packs/Day Years Used Date Smoking Tobacco: Never Assessed Sex and Gender Information Value Date Recorded Sex Assigned at Not on file Legal Sex Male 3:45 PM CDT Gender Identity Not on file Sexual Orientation Not on file documented as of this encounter Miscellaneous Notes * Cerner Conversion Note - Historical ProviderMD - 10/31/2020 11:42 PM SENIOR SUPPLY CHAIN ANALYST Broset Violence Assessment Entered On: 11/01/2020 1:33 EST Performed On: 11/01/2020 1:32 EST by Cara Butler Rn Broset Violence Assessment Broset Violence Checklist of Symptoms : None Broset Violence Symptoms Subtotal : 0 Broset Violence Symptoms Indicator : Low risk (0) Cara Butler Rn - 11/01/2020 1:32 EST Electronically signed by Brittany [facility] Conversion Focus Puller [employer] at 01/24/2023 10:37 AM CDT documented in this encounter Plan of Treatment Not on file documented as of this encounter Visit Diagnoses Not on filedocumented in this encounter Care Teams Lead Sustainability Specialist Relationship Specialty Start Date End Date Marielos Amaral, KAYE [address] [place] [address] PCP - General Nurse Practitioner 08/18/23 documented as of this encounter
--- OUTSIDE RECORDS SUMMARY | 2025-05-14 20:34 | XMS_ITS | Encounter Summary ---
Author Organization [employer] ([place], [place], [place], [place]) Address [address] [place] [address] Care Team Providers Care Chief Engineering Division Name Role Phone Munir Marielos RESTREPO Primary Care Provider Encounter Details Date Type Department Care Team (Late st Contact Info) Description 05/01/2022 Transcribed Document [facility] Family Medicine [address] [place] [address] ProviderHaroldo MD [address] [place] [address] Social History Tobacco Use Types [...] living situation today? I have a [facility] place to live 10/30/2024 Think about the [...] Do you speak a language other than [place] Konger at [facility]? Yes 10/30/2024 Do you want [...] Cerner Conversion Note - Historical Provider, - 05/01/2022 8:48 AM CDT UM Authorization Entered On: 05/01/2022 8:49 EDT Performed On: 05/01/2022 8:48 EDT by Kari Chaudhary, Rejoiner Primary Insurance Authorization Authorization and Policy Numbers : Insurance 1 Health Plan: [employer] MEDICARE REPL Policy Number: [id number] Authorization Number: Insurance Primary Name : [id number] REPL Policy Number: [id number] Authorization Status-Primary : Drg approved Auth/Referral Contact Name-Primary : [place] Reference Number-Primary : [id number] Authorization Number-Primary : [id number] Number of Days Authorized-Primary : 3 Day(s) Authorized Service Begin Date-Primary : 04/22/2022 EDT Authorized Service End Date-Primary : 04/25/2022 EDT Authorization Comments-Primary : Authorized per fax 04/30/22 @ 5629. Approved DRG admission 04/22 - 04/25. Historical Authorization Comments-Primary : Comment 1: Remains pending per [employer]aility. (Vanessa Pimentel, SUPV-QUALITY 04/29/2022 14:55) Comment 2: Discharge summary as well as continued stay clinical 04/24 - discharge faxed. (Kari Chaudhary, Rejoiner 04/29/2022 14:17) Comment 3: Request for inpt auth submitted via [employer] Ref# [id number] received;clinicals attached. (Radha Dillon RN 04/23/2022 18:56) Kari Chaudhary, Rejoiner - 05/01/2022 8:48 EDT documented in this encounter Plan of Treatment Not on file documented as of this encounter Visit Diagnoses Not on filedocumented in this encounter Care Teams Chief Engineering Division Relationship Specialty Start Date End Date Marielos Amaral, HOMOEOPATH [address] [phone] PCP - General Nurse Practitioner 08/18/23 documented as of this encounter
--- OUTSIDE RECORDS SUMMARY | 2025-05-14 20:34 | XMS_ITS | Encounter Summary ---
Author Organization [employer] ([place], [place], [place], [place]) Address [address] [place] [address] Care Team Providers Care Bleach Plant Operator Name Role Phone Marielos Amaral KAYE Primary Care Provider Encounter Details Date Type Department Care Team (Late st Contact Info) Description 02/06/2019 Transcribed Document [facility] [place] [address] [place] [address] ProviderHaroldo MD [address] [place] [address] Social History Tobacco Use Types Packs/Day Years Used Date Smoking Tobacco: Never Assessed Sex and Gender Information Value Date Recorded Sex Assigned at Not on file Legal Sex Male 3:45 PM CDT Gender Identity Not on file Sexual Orientation Not on file documented as of this encounter Miscellaneous Notes * Cerner Conversion Note - Haroldo ProviderMD - 02/06/2019 8:02 AM CDT ED Event Note Entered On: 02/06/2019 8:02 EDT Performed On: 02/06/2019 8:02 EDT by ANABELA WHEELER RN ED Event Note ED Event Date/Time : 02/06/2019 8:02 EDT ED Event Location : Assigned room ED Description of Event : Echo being done at bedside. ANABELA WHEELER RN - 02/06/2019 8:02 EDT Electronically signed by Brittany [facility] Conversion Recruitment Officer [employer] at 01/24/2023 10:45 AM CDT documented in this encounter Plan of Treatment Not on file documented as of this encounter Visit Diagnoses Not on filedocumented in this encounter Care Teams Bleach Plant Operator Relationship Specialty Start Date End Date Marielos Amaral, PRODUCT DEVELOPMENT DIRECTOR [address] [place] [address] PCP - General Nurse Practitioner 08/18/23 documented as of this encounter
--- OUTSIDE RECORDS SUMMARY | 2025-05-14 20:34 | XMS_ITS | Encounter Summary ---
Author Organization [employer] ([place], [place]) Address [address] [place] [address] Care Team Providers Care Solar Electric/Photovoltaic Installer Name Role Phone AmaralMarielos KAYE Primary Care Provider Encounter Details Date Type Department Care Team (Late st Contact Info) Description 11/01/2020 Transcribed Document [facility] [place] [address] [place] [address] ProviderHaroldo MD [address] [place] [address] Social History Tobacco Use Types Packs/Day Years Used Date Smoking Tobacco: Never Assessed Sex and Gender Information Value Date Recorded Sex Assigned at Not on file Legal Sex Male 3:45 PM CDT Gender Identity Not on file Sexual Orientation Not on file documented as of this encounter Miscellaneous Notes * Cerner Conversion Note - Haroldo ProviderMD - 11/01/2020 1:58 AM GAMING CASHIER [facility] [place] [address] ZACKARY ANTOINE JOYCE :1950 Visit Time:10/31/2020 Your Visit Summary Your Care Team Primary Provider: FANY MCCRACKEN Secondary Provider: Your Diagnosis Acute exacerbation of CHF (congestive heart failure) Shortness of breath SOA - Shortness of Air Medical Information You may obtain a copy of your Emergency Department visit from Medical Records by calling the hospital phone number listed above and asking to be directed to the Medical Records Department. If you had special tests, such as EKG???s or X-rays, the interpretation of your tests given to you by the Emergency Department Physician is a preliminary report. Some fractures and illnesses fail to show up on preliminary tests. These will be reviewed again and we will call you if there are any new suggestions. If your symptoms continue notify your physician. After you leave, you should follow the instructions provided. What to do next Follow-Up Appointments Follow Up with MARIAM CHATMAN When Within 2 to 3 days Where: [address] [facility] [address] [place] [address] Business (1) Follow Up with KATELYN MCKEON When Within 2 to 3 days Where: [address] [place] [address] [facility] (1) Allergies Mucinex amoxicillin Immunizations This Visit No Immunizations Found Medications What How Much When Instructions Next Dose bumetanide (bumetanide 1 mg oral tablet) 1 Tablet(s) Oral Every Day Duration: 7 Day(s) Pickup at [facility] 493 acetaminophen (Tylenol 325 mg oral tablet) 2 Tablet(s) Oral Every 4 Hours as needed for Pain (Mild 1-3) amiodarone (amiodarone 200 mg oral tablet) 1 Tablet(s) Oral Every Day apixaban (Eliquis 5 mg oral tablet) 1 Tablet(s) Oral Two Times A Day atorvastatin (atorvastatin 40 mg oral tablet) 1 Tablet(s) Oral At Bedtime cholecalciferol (Vitamin D3 1000 intl units oral tablet) 1 Tablet(s) Oral Every Day cyanocobalamin (Vitamin B12 1000 mcg oral tablet) 1 Tablet(s) Oral Every Day glimepiride (glimepiride 4 mg oral tablet) 1 Tablet(s) Oral Two Times A Day levothyroxine (Synthroid 100 mcg (0.1 mg) oral tablet) 1 Tablet(s) Oral Every Day lisinopril (lisinopril 40 mg oral tablet) 1 Tablet(s) Oral Every Day metFORMIN (metFORMIN 1000 mg oral tablet) 1 Tablet(s) Oral Two Times A Day metoprolol (Metoprolol Succinate ER 50 mg oral tablet, extended release) 1 Tablet(s) Oral Every Day nitroglycerin omeprazole (omeprazole 40 mg oral delayed release capsule) 1 Capsule(s) Oral Every Day before a meal SITagliptin (Januvia 100 mg oral tablet) 1 Tablet(s) Oral Every Day tamsulosin (Flomax 0.4 mg oral capsule) 1 Capsule(s) Oral Every Day Pharmacy Information [phone] [phone] The home medications listed are only as accurate as the information you provided. Please continue taking all of your medications prescribed by your Primary Care Provider unless specifically told to change or discontinue the medication. Please direct any questions regarding your home medications to your Primary Care Provider. Take your medications faithfully. Do NOT skip [...] of unused and medications per pharmacy guidance. Test Results Laboratory or Other Results This Visit (last charted value for your 10/31/2020 visit) Hematology 11/01/2020 0:01 AM WBC: 9.5 K/uL -- Normal range between ( 3.6 and 9.5 ) RBC: 3.82 Million/uL -- Normal range between ( 4.20 and 5.70 ) Hct: 35.8 % -- Normal range between ( 40.1 and 51.0 ) Hgb: 11.6 g/dL -- Normal range between ( 13.5 and 17.3 ) Platelet Count: 262 K/uL -- Normal range between ( 163 and 369 ) MCH: 30.4 pg -- Normal range between ( 25.6 and 32.2 ) MCHC: 32.4 Gram/dL -- Normal range between ( 32.2 and 36.5 ) MCV: 93.7 fL -- Normal range between ( 79.0 and 94.8 ) Slide Review: No Eos %: 2.2 % -- Normal range between ( 0.0 and 7.0 ) [place] #: 0.92 K/uL -- Normal range between ( 0.16 and 1.00 ) Eos #: 0.21 x10(3)/uL -- Normal range between ( 0.00 and 0.80 ) [place] %: 9.7 % -- Normal range between ( 3.0 and 9.0 ) Baso %: 0.6 % -- Normal range between ( 0.0 and 1.5 ) Baso #: 0.06 x10(3)/uL -- Normal range between ( 0.00 and 0.20 ) RDW: 13.6 % -- Normal range between ( 11.7 and 14.9 ) Neut %: 70.5 % -- Normal range between ( 34.0 and 71.0 ) Neut #: 6.69 K/uL -- Normal range between ( 1.56 and 6.13 ) Lymph %: 16.3 % -- Normal range between ( 19.3 and 53.1 ) Lymph #: 1.55 x10(3)/uL -- Normal range between ( 1.00 and 3.90 ) MPV: 10.3 fL -- Normal range between ( 9.4 and 12.4 ) IG#: 0.07 x10(3)/uL -- Normal range between ( 0.00 and 0.05 ) IG%: 0.70 % -- Normal range between ( 0.00 and 0.60 ) Microbiology 11/01/2020 0:01 AM SARS-CoV-2 (COVID19 PCR): Negative General Chemistry 11/01/2020 0:01 AM Creatinine Level: 1.80 mg/dL -- Normal range between ( 0.70 and 1.30 ) Sodium Level: 136 mmol/L -- Normal range between ( 136 and 146 ) Potassium Level: 4.6 mmol/L -- Normal range between ( 3.5 and 5.1 ) Chloride Level: 104 mmol/L -- Normal range between ( 102 and 112 ) Carbon Dioxide Level: 24 mmol/L -- Normal range between ( 21 and 32 ) Anion Gap: 13 -- Normal range between ( 9 and 20 ) Bilirubin Total: 0.6 mg/dL -- Normal range between ( 0.2 and 1.2 ) A/G Ratio: 1.1 -- Normal range between ( 1.1 and 2.5 ) ALT: 28 Units/Liter -- Normal range between ( 16 and 61 ) AST: 12 Units/Liter -- Normal range between ( 5 and 37 ) Globulin: 3.4 Gram/dL -- Normal range between ( 1.5 and 4.5 ) Alk Phos: 109 Units/Liter -- Normal range between ( 27 and 136 ) Bun/Creatinine: 15.0 -- Normal range between ( 8.0 and 20.0 ) Calcium Level: 9.5 mg/dL -- Normal range between ( 8.4 and 10.1 ) eGFR : 46 mL/min/1.73m2 eGFR NonAfrican: 38 mL/min/1.73m2 Glucose Level: 321 mg/dL -- Normal range between ( 74 and 106 ) Blood Urea Nitrogen: 27 mg/dL -- Normal range between ( 7 and 22 ) Protein Total: 7.3 Gram/dL -- Normal range between ( 6.4 and 8.2 ) Albumin Level: 3.9 Gram/dL -- Normal range between ( 3.4 and 5.0 ) Cardiac Specific Markers 11/01/2020 0:01 AM Troponin I Ultra: <0.015 ng/mL -- Normal range between ( 0.015 and 0.045 ) ProBNP: 3897 pg/mL -- Normal range between ( 0 and 125 ) Education Materials Heart Failure Exacerbation Heart failure is a condition in which the heart does not fill up with enough blood, and therefore does not pump enough blood and oxygen to the body. When this happens, parts of the body do not get the blood and oxygen they need to function properly. This can cause symptoms such as breathing problems, fatigue, swelling, and confusion. Heart failure exacerbation refers to heart failure symptoms that get worse. The symptoms may get worse suddenly or develop slowly over time. Heart failure exacerbation is a serious medical problem that should be treated right away. What are the causes? A heart failure exacerbation can be triggered by: ??? Not taking your heart failure medicines correctly. ??? Infections. ??? Eating an unhealthy diet or a diet that is high in salt (sodium). ??? Drinking too much fluid. ??? Drinking alcohol. ??? Taking illegal drugs, such as cocaine or methamphetamine. ??? Not exercising. Other causes include: ??? Other heart conditions such as an irregular heartbeat (arrhythmia). ??? Anemia. ??? Other medical problems, such as kidney failure. Sometimes the cause of the exacerbation is not known. What are the signs or symptoms? When heart failure symptoms suddenly or slowly get worse, this may be a sign of heart failure exacerbation. Symptoms of heart failure include: ??? Breathing problems or shortness of breath. ??? Chronic coughing or wheezing. ??? Fatigue. ??? Nausea or lack of appetite. ??? Feeling light-headed. ??? Confusion or memory loss. ??? Increased heart rate or irregular heartbeat. ??? Buildup of fluid in the legs, ankles, feet, or abdomen. ??? Difficulty breathing when lying down. How is this diagnosed? This condition is diagnosed based on: ??? Your symptoms and medical history. ??? A physical exam. You may also have tests, including: ??? Electrocardiogram (ECG). This test measures the electrical activity of your heart. ??? Echocardiogram. This test uses sound waves to take a picture of your heart to see how well it works. ??? Blood tests. ??? Imaging tests, such as: ? Chest X-ray. ? MRI. ? Ultrasound. ??? Stress test. This test examines how well your heart functions when you exercise. Your heart is monitored while you exercise on a treadmill or exercise bike. If you cannot exercise, medicines may be used to increase your heartbeat in place of exercise. ??? Cardiac catheterization. During this test, a thin, flexible tube (catheter) is inserted into a blood vessel and threaded up to your heart. This test allows your health care provider to check the arteries that lead to your heart (coronary arteries). ??? Right heart catheterization. During this test, the pressure in your heart is measured. How is this treated? This condition may be treated by: ??? Adjusting your heart medicines. ??? Maintaining a healthy lifestyle. This includes: ? Eating a heart-healthy diet that is low in sodium. ? Not using any products that contain nicotine or tobacco, such as cigarettes and e-cigarettes. ? Regular exercise. ? Monitoring your fluid intake. ? Monitoring your weight and reporting changes to your health care provider. ??? Treating sleep apnea, if you have this condition. ??? Surgery. This may include: ? Implanting a device that helps both sides of your heart contract at the same time (cardiac resynchronization therapy device). This can help with heart function and relieve heart failure symptoms. ? Implanting a device that can correct heart rhythm problems (implantable cardioverter defibrillator). ? Connecting a device to your heart to help it pump blood (ventricular assist device). ? Heart transplant. Follow these instructions at home: Medicines ??? Take atue-uxt-zxqdcxn and prescription medicines only as told by your health care provider. ??? Do not stop taking your medicines or change the amount you take. If you are having problems or side effects from your medicines, talk to your health care provider. ??? If you are having difficulty paying for your medicines, contact a social work program coordinator or your clinic. There are many programs to assist with medicine costs. ??? Talk to your health care provider before starting any new medicines or supplements. ??? Make sure your health care provider and pharmacist have a list of all the medicines you are taking. Eating and drinking ??? Avoid drinking alcohol. ??? Eat a heart-healthy diet as told by your health care provider. This includes: ? Plenty of fruits and vegetables. ? Lean proteins. ? Low-fat dairy. ? Whole grains. ? Foods that are low in sodium. Activity ??? Exercise regularly as told by your health care provider. Balance exercise with rest. ??? Ask your health care provider what activities are safe for you. This includes sexual activity, exercise, and daily tasks at home or work. Lifestyle ??? Do not use any products that contain nicotine or tobacco, such as cigarettes and e-cigarettes. If you need help quitting, ask your health care provider. ??? Maintain a healthy weight. Ask your health care provider what weight is healthy for you. ??? Consider joining a patient support group. This can help with emotional problems you may have, such as stress and anxiety. General instructions ??? Talk to your health care provider about flu and pneumonia vaccines. ??? Keep a list of medicines that you are taking. This may help in emergency situations. ??? Keep all follow-up visits as told by your health care provider. This is important. Contact a health care provider if: ??? You have questions about your medicines or you miss a dose. ??? You feel anxious, depressed, or stressed. ??? You have swelling in your feet, ankles, legs, or abdomen. ??? You have shortness of breath during activity or exercise. ??? You have a cough. ??? You have a fever. ??? You have trouble sleeping. ??? You gain 2???3 lb (1???1.4 kg) in 24 hours or 5 lb (2.3 kg) in a week. Get help right away if: ??? You have chest pain. ??? You have shortness of breath while resting. ??? You have severe fatigue. ??? You are confused. ??? You have severe dizziness. ??? You have a rapid or irregular heartbeat. ??? You have nausea or you vomit. ??? You have a cough that is worse at night or you cannot lie flat. ??? You have a cough that will not go away. ??? You have severe depression or sadness. Summary ??? When heart failure symptoms get worse, it is called heart failure exacerbation. ??? Common causes of this condition include taking medicines incorrectly, infections, and drinking alcohol. ??? This condition may be treated by adjusting medicines, maintaining a healthy lifestyle, or surgery. ??? Do not stop taking your medicines or change the amount you take. If you are having problems or side effects from your medicines, talk to your health care provider. This information is not intended to replace advice given to you by your health care provider. Make sure you discuss any questions you have with your health care provider. Document Released: 02/03/2018 Document Revised: 09/04/2018 Document Reviewed: 02/03/2018 Elsevier Patient Education ?? 2020 Elsevier Inc. Emergency Awareness and Preventative Care STROKE is [...] Assistance with quitting is available by contacting 3-926-NLSZNOW. This is a free resource providing counseling, support, and referral. Or you may contact your personal physician. [employer] Suicide Prevention Lifeline: The National Suicide Prevention [...] and how to prevent infections, visit www.cdc.gov/sepsis. The examination and treatment you have received in the Emergency Department has been done to provide an appropriate evaluation and stabilizing treatment on an emergency basis only. Given the limited resources, it is not meant to be a substitute for complete medical care. The follow-up doctor you named will receive a copy of your records and all test reports. IT IS IMPORTANT THAT YOU SCHEDULE A FOLLOW-UP APPOINTMENT AND ARE RE-EVALUATED. You should report any new complaints, symptoms, or remaining problems at that time. IT IS IMPOSSIBLE FOR THE EMERGENCY DEPARTMENT TO RECOGNIZE AND TREAT ALL ELEMENTS OF INJURY OR ILLNESS IN A SINGLE VISIT. If you have been referred to a specialist physician, it means that we believe you may have a condition that requires the expertise of a specialist. These physicians work in partnership with the hospital and have agreed to see referred patients in their office for further evaluation. KEEP IN MIND THAT THE SPECIALIST HAS HIS/HER OWN OFFICE POLICIES WHICH MAY REQUIRE PROPER INSURANCE OR PAYMENT UP FRONT BEFORE THE SPECIALIST WILL SEE YOU. It is your responsibility to call the specialist physician to make an appointment. We do not have the ability to refer patients to specialists/physicians that work with specific insurance companies. Please be advised that all financial charges or billing practices are determined by that practice, not the hospital. If your insurance company requires that you see a specialist from their approved list, it is your responsibility to contact your insurance company to make those arrangements. It is also your responsibility to follow any other requirements of your insurance company necessary to obtain coverage for claims submitted. We will bill your insurance; however, you are responsible today for any co-pay amounts. You will receive a separate bill for any services you may have received including: emergency, radiology, or pathology physicians. Patient Name:ZACKARY ANTOINE I have received this information and was given the opportunity to ask questions. Patient/Elevator Constructor Hydraulic Name: Patient/Elevator Constructor Hydraulic Signature: Relationship to Patient: Clinician/Hospital Elevator Constructor Hydraulic Signature: Please Provide a Telephone Number Where You Can Be Reached: Is it Permissible To Leave a Message? Date: documented in this encounter Plan of Treatment Not on file documented as of this encounter Visit Diagnoses Not on filedocumented in this encounter Care Teams Solar Electric/Photovoltaic Installer Relationship Specialty Start Date End Date Marielos Amaral APRN [address] [address] PCP - General Nurse Practitioner 08/18/23 documented as of this encounter
--- OUTSIDE RECORDS SUMMARY | 2025-05-14 20:34 | XMS_ITS | Encounter Summary ---
Author Organization [employer] ([place], [place], [place], [place]) Address [address] [place] [address] Care Team Providers Care Manager Restaurant Name Role Phone AmaralMarielos KAYE Primary Care Provider Encounter Details Date Type Department Care Team (Late st Contact Info) Description 10/31/2020 Transcribed Document [facility] [place] [address] [place] [address] ProviderHaroldo MD [address] [place], [place] [id number] Social History Tobacco Use Types Packs/Day Years Used Date Smoking Tobacco: Never Assessed Sex and Gender Information Value Date Recorded Sex Assigned at Not on file Legal Sex Male 3:45 PM CDT Gender Identity Not on file Sexual Orientation Not on file documented as of this encounter Miscellaneous Notes * Cerner Conversion Note - Historical ProviderMD - 10/31/2020 11:42 PM STUMP SHOOTER [place] Suicide Severity Rating Scale (C-SSRS) Entered On: 11/01/2020 1:33 EST Performed On: 11/01/2020 1:32 EST by Cara Butler Rn [place] Suicide Severity Rating Scale (C-SSRS) CSSRS Past Month Wish to be : No CSSRS Past Month Suicidal Thoughts : No CSSRS Lifetime Suicide Behavior : No Suicide Severity Rating Score : 0 Suicide Severity Rating : No Additional Care Required at this time Cara Butler Rn - 11/01/2020 1:32 EST Electronically signed by Brittany, [facility] Conversion Aircraft Mechanic Structures Cerner at 01/24/2023 10:39 AM CDT documented in this encounter Plan of Treatment Not on file documented as of this encounter Visit Diagnoses Not on filedocumented in this encounter Care Teams Manager Restaurant Relationship Specialty Start Date End Date Marielos mAaral, KAYE [address] [place] [address] PCP - General Nurse Practitioner 08/18/23 documented as of this encounter
--- OUTSIDE RECORDS SUMMARY | 2025-05-14 20:34 | XMS_ITS | Encounter Summary ---
Author Organization [employer] ([place], [place], [place], [place]) Address [address] [place] [address] Care Team Providers Care Immigration Paralegal Name Role Phone Munir Marielos RESTREPO Primary Care Provider [phone] Encounter Details Date Type Department Care Team (Late st Contact Info) Description 04/29/2022 Transcribed Document [facility] [place] [address] [place] [address] ProviderHaroldo MD [address] [place] [address] Social History Tobacco Use Types [...] Never 10/30/2024 How often does anyone, zehra ahrvey family and friends, threaten you with harm? [...] Do you speak a language other than [place]ese at [facility]? Yes 10/30/2024 Do you want help [...] Cerner Conversion Note - Historical Provider, - 04/29/2022 2:17 PM CDT UM Authorization Entered On: 04/29/2022 14:18 EDT Performed On: 04/29/2022 14:17 EDT by Kari Chaudhary, Jukebox Route Driver Primary Insurance Authorization Authorization and Policy Numbers : Insurance 1 Health Plan: [employer] REPL Policy Number: [id number] Authorization Number: Insurance Primary Name : [employer] REPL Policy Number: [id number] Authorization Status-Primary : Awaiting callback Auth/Referral Contact Name-Primary : DC Reference Number-Primary : [id number] Authorized Service Begin Date-Primary : 04/22/2022 EDT Authorization Comments-Primary : Discharge summary as well as continued stay clinical 04/24 - discharge faxed. Historical Authorization Comments-Primary : Comment 1: Request for inpt auth submitted via [facility] Ref# [id number] received;clinicals attached. (Radha Dillon RN 04/23/2022 18:56) Kari Chaudhary, Jukebox Route Driver - 04/29/2022 14:17 EDT Electronically signed by Brittany [facility] Conversion Catering Assistant Cerner at 01/24/2023 10:26 AM CDT documented in this encounter Plan of Treatment Not on file documented as of this encounter Visit Diagnoses Not on filedocumented in this encounter Care Teams Immigration Paralegal Relationship Specialty Start Date End Date Marielos Amaral, CAMOUFLAGE SPECIALIST [address] [place] [address] PCP - General Nurse Practitioner 08/18/23 documented as of this encounter
--- OUTSIDE RECORDS SUMMARY | 2025-05-14 20:34 | XMS_ITS | Encounter Summary ---
Author Organization [employer] ([place], [place], [place], [place]) Address [address] [place] [address] Care Team Providers Care Donor Floor Technician Name Role Phone Marielos Amaral APRN Primary Care Provider Encounter Details Date Type Department Care Team (Late st Contact Info) Description 11/30/2020 Transcribed Document [facility] Cardiology [address] [place], [place] [id number] [place] [address] [place] [address] [address] [place] [address] Social History Tobacco Use Types Packs/Day Years Used Date Smoking Tobacco: Never Assessed Sex and Gender Information Value Date Recorded Sex Assigned at Not on file Legal Sex Male 3:45 PM CDT Gender Identity Not on file Sexual Orientation Not on file documented as of this encounter Miscellaneous Notes * Cerner Conversion Note - John Salguero MD - 11/30/2020 12:52 PM EST DATE OF SERVICE: Patient underwent a Lexiscan myocardial perfusion study; the EKG portion of which was unremarkable. NUCLEAR SCAN: There appears to be a dilated left ventricle, no clear reversibility to suggest ischemia. However, the ejection fraction is impaired, estimated at 37%. IMPRESSION: Abnormal myocardial perfusion study with evidence of a dilated cardiomyopathy with an ejection fraction of 37%, of note, however, no clear reversibility to suggest ischemia. /[id number] John Salguero MD NMF/AQ / NMF / MODL /[id number] documented in this encounter Plan of Treatment Not on file documented as of this encounter Visit Diagnoses Not on filedocumented in this encounter Care Teams Donor Floor Technician Relationship Specialty Start Date End Date Marielos Amaral APRN [address] [place] [address] PCP - General Nurse Practitioner 08/18/23 documented as of this encounter
--- OUTSIDE RECORDS SUMMARY | 2025-05-14 20:34 | XMS_ITS | Encounter Summary ---
Author Organization [employer] ([place], [place], [place]) Address [address] [place] [address] Care Team Providers Care Silk Screen Painter Name Role Phone Munir Marielos RESTREPO Primary Care Provider Encounter Details Date Type Department Care Team (Late st Contact Info) Description 04/27/2022 Transcribed Document [facility] [place] [address] [place] [address] ProviderHaroldo MD [address] [place] [address] Social History Tobacco Use Types [...] Do you speak a language other than Senegalese at [facility]? Yes 10/30/2024 Do you want help [...] Cerner Conversion Note - Historical Provider, - 04/27/2022 8:39 AM CDT Discharge Summary, PT Entered On: 04/27/2022 8:41 EDT Performed On: 04/27/2022 8:39 EDT by FANY FREEMAN, PT Discharge Summary Reason for Discharge : Discharged from hospital Discharged to, Therapy : Home, with home health Discharge Equipment, PT : None Discharge Summary Comment, PT : When last seen by PT the patient was indepedent sup>sit and mod independent sit><stand. He was able to walk 210' with a rolling walker and supervision. He discharged home with a home health referral. FANY FREEMAN, PT - 04/27/2022 8:39 EDT Front End Loader Operator Goals Mobility/Bed Mobility LTG PT Grid Goal #1 Goal #2 Activity : Supine to sit Sit to stand Assist : Independent, modified Independent, modified Equipment : Belt, gait, Walker, front wheel Date to Meet : 05/07/2022 EDT 05/07/2022 EDT Goal Status : Goal met Goal met Date Met : 04/24/2022 EDT 04/25/2022 EDT FANY FREEMAN, PT - 04/27/2022 8:39 EDT FANY FREEMAN, PT - 04/27/2022 8:39 EDT Transfer LTG Grid Goal #1 Destination : Chair, with arms Type : Other: step-to Assist : Independent, modified Equipment : Belt, gait, Walker, front wheel Date to Meet : 05/07/2022 EDT Goal Status : Goal met FANY FREEMAN PT - 04/27/2022 8:39 EDT Ambulation LTG Grid Goal #1 Device : Walker, front wheel Distance : 150' Assist : Independent, modified Date to Meet : 05/07/2022 EDT Goal Status : Not met FANY FREEMAN, PT - 04/27/2022 8:39 EDT Electronically signed by Brittany [facility] Conversion Slab Lifting Supervisor Cerner at 01/24/2023 10:33 AM CDT documented in this encounter Plan of Treatment Not on file documented as of this encounter Visit Diagnoses Not on filedocumented in this encounter Care Teams Silk Screen Painter Relationship Specialty Start Date End Date Marielos Amaral, LICENSED PESTICIDE APPLICATOR [address] [id number] PCP - General Nurse Practitioner 08/18/23 documented as of this encounter
--- OUTSIDE RECORDS SUMMARY | 2025-05-14 20:34 | XMS_ITS | Encounter Summary ---
Author Organization [employer] ([place], [place]) Address [address] [place] [address] Care Team Providers Care Garden Implement Mechanic Name Role Phone Munir Marielos RESTREPO Primary Care Provider Encounter Details Date Type Department Care Team (Late st Contact Info) Description 04/26/2022 Transcribed Document [facility] [place] Family Medicine [address] [place] [address] ProviderHaroldo MD [address] [place] [address] Social History Tobacco Use Types [...] Do you speak a language other than Andorran at [facility]? Yes 10/30/2024 Do [...] Conversion Note - Historical Provider, - 04/26/2022 2:23 PM CDT On Going Discharge Planning Entered On: 04/26/2022 14:25 EDT Performed On: 04/26/2022 14:23 EDT by LEXX LOWRY, RN-Certified Medical BillerAccounts Clerk Progress Note Discharge Arrangements : Patient Post-Acute Information Patient Name: ZACKARY ANTOINE Gender: Male : 52 Age: 71 Years No Post-Acute Placement(s) Listed No Post-Acute Service(s) Listed No Curaspan Referral(s) Listed Discharge Options Discussed with Patient : DME, Home Health Barriers to Discharge Identified : None identified Barriers to Discharge Unresolved : All resolved Patient Discharge Goal : Home [facility] Quality Web Info Shared w Pt/Fam : No Does the Patient have a Floor to SNF Benefit? : No Is the Patient Meeting Medical Necessity : Yes Physician Agreeable to Move Forward with D/C Plan? : No Did you Attend Multidisciplinary Rounds? : Yes LEXX LOWRY RN-Certified Medical Biller - 04/26/2022 14:23 EDT Narrative Progress Note Narrative Progress Note : Met with pt and . Do not have home health preference. Per [facility], do not serve area at this time and will assist in establishing a home health for pt in [facility]. Deny need for equipment. States glucometer is old . Order for new one sent to pharmacy per Dr. Gross. limb driver to see prior to dc. 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 CM attempted to meet with pt this evening for CM eval, but pt sleeping soundly. CM will need to f/u with pt for full CM eval and send referrals as appropriate, as pt will likely benefit from HH vs inpt rehab. TYSHAWN RIGGINS, RN-Certified Medical Biller ED - 04/23/22 23:38:53 LEXX LOWRY, RN-Certified Medical Biller - 04/26/2022 14:23 EDT documented in this encounter Plan of Treatment Not on file documented as of this encounter Visit Diagnoses Not on filedocumented in this encounter Care Teams Garden Implement Mechanic Relationship Specialty Start Date End Date Marielos Amaral APRN [address] [address] PCP - General Nurse Practitioner 08/18/23 documented as of this encounter
--- OUTSIDE RECORDS SUMMARY | 2025-05-14 20:34 | XMS_ITS | Encounter Summary ---
Author Organization [employer] ([place], [place], [place], [place]) Address [address] [place] [address] Care Team Providers Care Flash Welding Machine Operator Name Role Phone Marielos Amaral KAYE Primary Care Provider [phone] Encounter Details Date Type Department Care Team (Late st Contact Info) Description 12/12/2020 Transcribed Document [facility] Family Medicine [address] [place] [address] ProviderHaroldo MD [address] [place] [address] Social History Tobacco Use Types Packs/Day Years Used Date Smoking Tobacco: Never Assessed Sex and Gender Information Value Date Recorded Sex Assigned at Not on file Legal Sex Male 3:45 PM CDT Gender Identity Not on file Sexual Orientation Not on file documented as of this encounter Miscellaneous Notes * Cerner Conversion Note - Historical ProviderMD - 12/12/2020 9:16 AM PARTS ANALYST Pre Procedure Adult Entered On: 12/12/2020 9:22 EST Performed On: 12/12/2020 9:16 EST by Marielle Ward RN Height and Weight, Clinical Dosing Height Source : Stated Height Entry Format : Gilchrist Height, Feet : 5 ft(Converted to: 152 cm, 60 Inch) Height, Inches : 9 Inch(Converted to: 0 ft 9 Inch, 22.86 cm) Clinical Height : 175.26 cm Weight Source : Standing scale Weight Entry Format : Gilchrist Clinical Dosing Weight : 89.55 kg Weight, Pounds : 197 lb Body Surface Area (BSA) : 2.05 m2 Body Mass Index : 29.2 kg/m2 (HI) Oxford Body Weight : 70 kg Marielle Ward RN - 12/12/2020 9:16 EST Health Histories Smoking Status : Former smoker, quit more than 30 days ago Smokeless Tobacco Status : Smokeless tobacco user within last 30 days Desires Tobacco Cessation Medication : No Reason for No Tobacco Cessation Medication : Refuses FDA approved medications Marielle Ward RN - 12/12/2020 9:16 EST Social History (As Of: 12/12/2020 09:22:54 EST) Tobacco: Use in Last 12 Months: [...] 04/14/2019 14:21:58 EDT by MIKO GALLAGHER, RN) Alcohol Use History No. Date/Time of Last [...] by MIKO GALLAGHER RN) Infectious Disease History Has the patient ever been tested for COVID-19? : Yes, Patient stated results Negative Where are the test results? : Paper Copy on chart Date of COVID-19 test known? : Yes Date of COVID-19 Test : 12/11/2020 EST Does patient have symptoms of COVID-19? : No COVID19 Screening : No Experiencing Infectious Disease Symptoms : No symptoms Physical contact outside US in the last 30 days : No Infectious Disease History : Chicken pox/Shingles, Influenza, Measles, Mumps, Rubella Tuberculosis Symptoms : None Marielle Ward RN - 12/12/2020 9:16 EST COVID19 PreProcedure Screening Is this an Emergent or Add on Procedure? : No Date PreProcedure COVID-19 test known? : Yes Date of PreProcedure COVID-19 : 12/11/2020 EST Has patient been isolated since the test : Yes Exposed to COVID19 symptoms since test? : Yes Marielle Ward RN - 12/12/2020 9:16 EST Anesthesia/Transfusion History Family History of Anesthesia Reaction : No prior transfusion(s) Transfusion History : Prior anesthesia without reaction Family History of Anesthesia Reaction : None Intubation History : Unknown Marielle Ward RN - 12/12/2020 9:16 EST Functional Assessment Living Situation : Home Patient Lives With : Spouse Persons Assisting Patient at Home : Spouse Current Daily Living Assistance : None Sensory Deficits : None Current Home Treatments : Blood glucose monitoring Marielle Ward RN - 12/12/2020 9:16 EST Martin Suicide Severity Rating Scale (C-SSRS) CSSRS Past Month Wish to be : No CSSRS Past Month Suicidal Thoughts : No CSSRS Lifetime Suicide Behavior : No Suicide Severity Rating Score : 0 Suicide Severity Rating : No Additional Care Required at this time Marielle Ward RN - 12/12/2020 9:16 EST Psychosocial History Chronic/Terminal Illness w/Freq Visits : No Do You Have a History of the Following? : Patient denies history Currently in Unsafe Situation : No Marielle Ward RN - 12/12/2020 9:16 EST Advance Directive Patient has Advance Directive *Q : Yes, Advance Directive not with the patient Advance Directive Type : Living will Copy Advance Directive Verified/on Chart : No Marielle Ward RN - 12/12/2020 9:16 EST Teaching/Learning Assessment Barriers To Learning : None evident Individuals Taught : Patient Readiness to Learn : Cooperative Readiness to Learn : Explanation Learning Style Preferences Patient : Verbal explanation Learning Style Preferences Family : Verbal explanation Marielle Ward RN - 12/12/2020 9:16 EST Education Topics, Periop Preadmission Perioperative Education Grid IV's : Verbalizes understanding NPO Status/Directions : Verbalizes understanding Preprocedure Preparations : Verbalizes understanding Preprocedure Tests/Labs : Verbalizes understanding Marielle Ward RN - 12/12/2020 9:16 EST General Info Preferred Name : Clint Legal Guardian : No Support Person/Patient Block Mason : Yes Support Person/Pt Rep Name : Enriqueta - Contact Password : melanie Support Person/Pt Rep Contact Information : [phone], cell Want Family/Rep/Phys Notified of Admit : No Emergency Contact #1 : na Emergency Contact #1 Phone Number : nan Emergency Contact #1 Relationship : na Emergency Contact #2 : na Emergency Contact #2 Phone Number : na Emergency Contact #2 Relationship : na Primary Language : Honduran Preferred Communication Mode : Verbal Communication Barrier : None Surface Plate Inspector Needed : No Marielle Ward RN - 12/12/2020 9:16 EST Vital Measurements Temperature Mode : Fahrenheit Temperature, Fahrenheit : 97.2 Deg F Clinical Temperature, C : 36.2 Deg C Heart Rate, Apical : 81 bpm Systolic Blood Pressure : 139 mmHg Diastolic Blood Pressure : 67 mmHg Oxygen Saturation : 96 % Oxygen Therapy Mode : Room air Marielle Ward RN - 12/12/2020 9:16 EST Sleep Apnea Risk Assmt BiPAP/CPAP Ordered for Home Use : Yes Hx of Obstructive Sleep Apnea Diagnosis : Yes BiPAP/CPAP Used at Home : No Reason BiPAP/CPAP Not Used at Home : says he does not need Age over 50 Years Old : Yes Gender Male : Yes Marielle Ward RN - 12/12/2020 9:16 EST Unruly Scale Unruly Sensory Perception : No impairment Unruly Moisture : Rarely moist Unruly Activity : Walks frequently Unruly Mobility : No limitation Unruly Nutrition : Excellent Unruly Friction and Shear : No apparent problem Unruly Score : 23 Marielle Ward RN - 12/12/2020 9:16 EST Oxygen Therapy Oxygen Therapy Mode : Room air Marielle Ward RN - 12/12/2020 9:16 EST Pain Assessment Pain Assessment : Initial assessment Pain Scale Used : 0-10 Scale Marielle Ward RN - 12/12/2020 9:16 EST Fall Risk Scales ABCs Fall Injury [...] Scale Risk Level : 0-24 Low Risk Colts Neck Fall Interventions : Adequate lighting, Assistive devices within reach, Bed in low position, Call device within reach, Frequent orientation to call device, Frequent orientation to surroundings, Hourly comfort/safety rounds, Non-slip footwear, Personal items within reach, Room free of clutter/spills, Wheels locked, Wires/Cords secured Marielle Ward RN - 12/12/2020 9:16 EST Valuables and Belongings Valuables and Belongings : Clothing, Personal items Clothing : Common streetwear Clothing Disposition : Bedside, Declines to send to security/safe Personal Items : Wallet Personal Items Disposition : Bedside, Declines to send to security/safe Marielle Ward RN - 12/12/2020 9:16 EST Pain Scale Intensity : 0 Marielle Ward RN - 12/12/2020 9:16 EST Image 4 - Images currently included in the form version of this document have not been included in the text rendition version of the form. documented in this encounter Plan of Treatment Not on file documented as of this encounter Visit Diagnoses Not on filedocumented in this encounter Care Teams Flash Welding Machine Operator Relationship Specialty Start Date End Date Marielos Amaral, LICENSE CLERK [address] [place] [address] PCP - General Nurse Practitioner 08/18/23 documented as of this encounter
--- OUTSIDE RECORDS SUMMARY | 2025-05-14 20:34 | XMS_ITS | Clinical Summary ---
Author Organization [employer] ([place], [place], [place], [place]) Address [address] [place] [address] Care Team Providers Care Molder Name Role Phone AmaralMarielos roque KAYE Primary Care Provider [phone] Allergies Active Allergy Reactions Criticality Noted Date [...] Immunizations Name Administration Dates Next Due INFLUENZA(FLUCELVAX)_0.5 mL(6MOS+)TRI(SGN100) Social History Tobacco Use Types Packs/Day Years [...] Do you speak a language other than Yi at [facility]? Yes 10/30/2024 [...] 10/30/2024 2:50 AM EST Plan of Treatment Health Maintenance Due Date Last Done Comments CT Colonography 1951 Colonoscopy 1950 Colorectal Cancer Screening 1950 FOBT/FIT 1951 Fit-DNA (Cologuard) 1950 Sigmoidoscopy 1951 Depression Screening (12+) 1963 Shingles Vaccine (Zoster) (1 of 2) 12/19/2001 Respiratory Syncytial Virus (RSV) Adult or (1 - Risk 60-74 years 1-dose series) 2011 Pneumococcal 50+ years (2 of 2 - PCV) 02/16/2018 02/16/2017 Medicare Initial AWV G0438 10/07/2022 COVID-19 VACCINE (4 - 2023-2 5 season) 2024 08/13/2022, 02/02/2021, 01/02/2021 Falls Risk Screening 10/06/2024 Influenza Vaccine (#1) 2025 , 07/29/2023, 08/13/2022, Additional history exists Tobacco Cessation Counseling and Screening (12+) 10/30/2025 10/30/2024 DTAP/TDAP/TD VACCINES (2 - T d or Tdap) 09/22/2028 09/22/2018 Hepatitis C Screening Completed 09/15/2024 Procedures Procedure Name Priority Date/Time Associated Diagnosis Comments HEPATITIS PANEL, ACUTE STAT 09/15/2024 2:53 PM EST from Last 3 Months or Most Recently Relevant to Health Maintenance Results * Hepatitis panel, acute (09/15/2024 2:53 PM EST) Hep A IgM Nonreactive Nonreactive, Equivocal 09/15/2024 4:51 PM EST [facility] Hep B C IgM Nonreactive Nonreactive 09/15/2024 4:51 PM EST [facility] Hepatitis B surface antigen Nonreactive Nonreactive, Equivocal 09/15/2024 4:51 PM EST [facility] Hepatitis C Ab Nonreactive Nonreactive, Equivocal 09/15/2024 4:51 PM EST [facility] Blood Venipuncture / Unknown 09/15/2024 2:53 PM EST 09/15/2024 3:10 PM EST [facility] - 09/15/2024 4:51 PM EST [...] related to biotin interference with lab tests. us Wilson Goode MD LAB BLOOD ORDERABLES Final Re sult [facility] [address] [id number] [phone] from Last 3 Months or Most Recently Relevant to Health Maintenance Insurance [facility] [place] [employer] ACCESS O MAP Advance Directives For more information, please contact: [phone] * Full Code (Latest Code Status on [...] Relationship Healthcare Agent Relationshi p Communication Enriqueta Toy Spouse Healthcare Decision-Maker Care Teams Molder Relationship Specialty Start Date End Date AmaralMarielos, SISTER SUPERIOR [address] [place] [address] PCP - General Nurse Practitioner 08/18/23
--- OUTSIDE RECORDS SUMMARY | 2025-05-14 20:34 | XMS_ITS | Encounter Summary ---
Author Organization [employer] ([place], [place], [place], [place]) Address [address] [place] [address] Care Team Providers Care Starting Sheet Tank Operator Name Role Phone Marielos Amaral APRN Primary Care Provider Encounter Details Date Type Department Care Team (Late st Contact Info) Description 11/01/[address] [facility] [place] Family Medicine [address] [place] [address] ProviderHaroldo MD [address] [place], [place] [address] Social History Tobacco Use Types Packs/Day Years Used Date Smoking Tobacco: Never Assessed Sex and Gender Information Value Date Recorded Sex Assigned at Not on file Legal Sex Male 3:45 PM CDT Gender Identity Not on file Sexual Orientation Not on file documented as of this encounter Miscellaneous Notes * [employer] Conversion Note - Historical ProviderMD - 11/01/2020 1:57 AM CERTIFIED OPHTHALMIC TECHNICIAN Electronically signed by [facility] Conversion Meat Cutting Block Repairer Cerner at 01/24/2023 10:19 AM CDT documented in this encounter Plan of Treatment Not on file documented as of this encounter Visit Diagnoses Not on filedocumented in this encounter Care Teams Starting Sheet Tank Operator Relationship Specialty Start Date End Date Marielos Amaral APRN [address] [address] PCP - General Nurse Practitioner 08/18/23 documented as of this encounter
--- OUTSIDE RECORDS SUMMARY | 2025-05-14 20:34 | XMS_ITS | Encounter Summary ---
Author Organization [employer] ([place], [place], [place], [place]) Address [address] [place] [address] Care Team Providers Care Medical Assistant Secretary Name Role Phone Munir Marielos RESTREPO Primary Care Provider [phone] Encounter Details Date Type Department Care Team (Late st Contact Info) Description 04/26/2022 Transcribed Document [facility] Family Medicine [address] [place] [address] ProviderHaroldo MD [address] [place] [address] Social History Tobacco Use Types [...] Do you speak a language other than Setswana at [facility]? Yes 10/30/2024 Do you want help with [...] Conversion Note - Historical Provider, - 04/26/2022 12:07 PM CDT Final Discharge Planning Entered On: 05/01/2022 12:09 EDT Performed On: 04/26/2022 12:07 EDT by Zuly Gandara Rn-Fructose Loader Final Discharge Planning Discharge Arrangements : Patient Post-Acute Information Patient Name: ZACKARY ANTOINE Gender: Male : [birth year] Age: 71 Years No Post-Acute Placement(s) Listed No Post-Acute Service(s) Listed No Curaspan Referral(s) Listed Discharge To Care Management : Home/Residential/Snf or Self Care - Zuly Gandara Rn-Fructose Loader - 05/01/2022 12:07 EDT Final Narrative Note Final Narrative Note : DISPOSITION: Home without home health due to lack of coverage in patient's area. CM utilized [facility] Home Health's resources/assistance in attempting to place patient, and ultimately all possible agencies declined and the patient was not able to receive services. Agencies who declined include : [facility], [facility], [facility], [facility], [facility], [facility], [facility] and [facility]. Zuly Gandara Rn-Fructose Loader - 05/01/2022 12:07 EDT Electronically signed by Renetta Soto Conversion Regional Owner Operator Truck Driver Cerner at 01/24/2023 10:18 AM CDT documented in this encounter Plan of Treatment Not on file documented as of this encounter Visit Diagnoses Not on filedocumented in this encounter Care Teams Medical Assistant Secretary Relationship Specialty Start Date End Date Marielos Amaral APRN [address] [id number] PCP - General Nurse Practitioner 08/18/23 documented as of this encounter
--- OUTSIDE RECORDS SUMMARY | 2025-05-14 20:34 | XMS_ITS | Encounter Summary ---
Author Organization [employer] ([place], [place], [place], [place]) Address [address] [place] [address] Care Team Providers Care Machine Tool Technology Instructor Name Role Phone Munir Marielos RESTREPO Primary Care Provider Encounter Details Date Type Department Care Team (Late st Contact Info) Description 04/29/2022 Transcribed Document [facility] [place] Medicine [address] [place] [address] ProviderHaroldo MD [address] [place] [address] Social History Tobacco Use Types [...] speak a language other than Citizen Of [place] at [facility]? Yes 10/30/2024 Do [...] Conversion Note - Historical Provider, - 04/29/2022 2:55 PM CDT UM Authorization Entered On: 04/29/2022 14:56 EDT Performed On: 04/29/2022 14:55 EDT by Vanessa Pimentel [employer] Primary Insurance Authorization Authorization and Policy Numbers : Insurance 1 Health Plan: [employer] REPL Policy Number: [id number] Authorization Number: Insurance Primary Name : [employer] Policy Number: [id number] Authorization Status-Primary : Awaiting callback Auth/Referral Contact Name-Primary : DC Reference Number-Primary : [id number] Authorized Service Begin Date-Primary : 04/22/2022 EDT Authorization Comments-Primary : Remains pending per [employer]. Historical Authorization Comments-Primary : Comment 1: Discharge summary as well as continued stay clinical 04/24 - discharge faxed. (Kari Chaudhary, Oracle Brm Developer 04/29/2022 14:17) Comment 2: Request for inpt auth submitted via [employer] Ref# [id number] received;clinicals attached. (Radha iDllon RN 04/23/2022 18:56) Vanessa Pimentel [employer] - 04/29/2022 14:55 EDT Electronically signed by Donato Soto Conversion Motor Vehicle Operator Road Supervisor Cerner at 01/24/2023 10:44 AM CDT documented in this encounter Plan of Treatment Not on file documented as of this encounter Visit Diagnoses Not on filedocumented in this encounter Care Teams Machine Tool Technology Instructor Relationship Specialty Start Date End Date Marielos Amaral, CORPORATE REAL ESTATE MANAGER [address] [address] PCP - General Nurse Practitioner 08/18/23 documented as of this encounter
--- OUTSIDE RECORDS SUMMARY | 2025-05-14 20:34 | XMS_ITS | Encounter Summary ---
Author Organization [employer] ([place], [place], [place], [place]) Address [address] [place] [address] Care Team Providers Care Emergency Medicine Specialist Name Role Phone Marielos Amaral KAYE Primary Care Provider Encounter Details Date Type Department Care Team (Late st Contact Info) Description 11/01/2020 Transcribed Document [facility] [place] [address] ProviderHaroldo MD [address] [place] [address] Social History Tobacco Use Types Packs/Day Years Used Date Smoking Tobacco: Never Assessed Sex and Gender Information Value Date Recorded Sex Assigned at Not on file Legal Sex Male 3:45 PM CDT Gender Identity Not on file Sexual Orientation Not on file documented as of this encounter Miscellaneous Notes * Cerner Conversion Note - Haroldo ProviderMD - 11/01/2020 2:07 AM BUILDING ADMIN ED Discharge Entered On: 11/01/2020 2:07 EST Performed On: 11/01/2020 2:07 EST by SEAN BHANDARI RN Discharge Process Patient Disposition : Discharge Personal Belongings With Patient : Yes Patient Education Completed : Yes Teaching Evaluation : Verbalizes understanding IV Discontinued : Yes Nursing Documentation Completed : Yes SEAN BHANDARI RN - 11/01/2020 2:07 EST ED Discharge Discharge To : Home with ambulatory/outpatient follow-up Accompanied By : Unaccompanied Discharge Instructions Reviewed With, Opportunity For Questions Given : Patient Prescriptions Given to Patient : Yes Number of Prescriptions Given : 1 Medications Given to Patient : No Number of Medications Given : 0 SEAN BHANDARI RN - 11/01/2020 2:07 EST Electronically signed by [facility], [facility] Conversion Junior Php Developer Cerner at 01/24/2023 10:25 AM CDT documented in this encounter Plan of Treatment Not on file documented as of this encounter Visit Diagnoses Not on filedocumented in this encounter Care Teams Emergency Medicine Specialist Relationship Specialty Start Date End Date Marielos Amaral, TOOLROOM KEEPER [address] [place] [address] PCP - General Nurse Practitioner 08/18/23 documented as of this encounter
--- OUTSIDE RECORDS SUMMARY | 2025-05-14 20:34 | XMS_ITS | Encounter Summary ---
Author Organization [employer] ([place], [place], [place], [place]) Address [address] [place] [address] Care Team Providers Care Sr. Consultant Name Role Phone Marielos Amaral KAYE Primary Care Provider [phone] Encounter Details Date Type Department Care Team (Late st Contact Info) Description 10/31/2020 Transcribed Document [facility] [place] [address] [place] [address] ProviderHaroldo MD [address] [place], [place] [id number] Social History Tobacco Use Types Packs/Day Years Used Date Smoking Tobacco: Never Assessed Sex and Gender Information Value Date Recorded Sex Assigned at Not on file Legal Sex Male 3:45 PM CDT Gender Identity Not on file Sexual Orientation Not on file documented as of this encounter Miscellaneous Notes * Cerner Conversion Note - Haroldo ProviderMD - 10/31/2020 11:42 PM SIGNAL WORKER ED Assessment Entered On: 11/01/2020 1:33 EST Performed On: 11/01/2020 1:32 EST by Cara Butler, chaser helper Quick Look Assessment Level of Consciousness : Alert, Awake Affect/Behavior : Appropriate, Calm, Cooperative Orientation : Oriented x 4 Skin Temperature : Warm Skin Description : Normal for ethnicity Cara Butler Rn - 11/01/2020 1:32 EST ED General-Functional Assess Information Obtained From : Patient Preferred Communication Mode : Verbal Communication Barrier : None Primary Language : Barbadian Any Spiritual/Cultural Needs or Requests : No Currently in Unsafe Situation : No Cara Butler Rn - 11/01/2020 1:32 EST Social Habits Smoking Status : 5-9 cigarettes (between 1/4 to 1/2 pack)/day in last 30 days Smokeless Tobacco Status : Never Desires Tobacco Cessation Medication : No Reason for No Tobacco Cessation Medication : ED/procedural patient only Desires Tobacco Cessation Calc : 1 Cara Butler Rn - 11/01/2020 1:32 EST Social History (As Of: 11/01/2020 01:33:45 EST) Tobacco: Use in Last 12 Months: [...] 04/14/2019 14:21:58 EDT by MIKO GALLAGHER, LUIS) Substance Abuse: Drug Use Hx: No. Use in Last 12 Months: No. (Last Updated: 01/20/2019 12:43:06 EDT by CORRINA QUINTANA RN) Nutrition/Health: Diabetic, Caffeine intake amount: 2 cups a day.. (Last Updated: 04/14/2019 14:22:28 EDT by MIKO GALLAGHER, RN) Cardiovascular ASMT, ED Cardiovascular Assessment WDL : WDL with exceptions (Comment: pt c/o chest pain and soa, worse w/ lying down x 1 wk. [Cara Butler Rn - 11/01/2020 1:32 EST] ) Cara Butler Rn - 11/01/2020 1:32 EST Respiratory Respiratory Assessment WDL : WDL with exceptions (Comment: pt c/o chest pain and soa, worse w/ lying down x 1 wk. pt ambulatory to room. [Cara Butler Rn - 11/01/2020 1:32 EST] ) Cara Butler Rn - 11/01/2020 1:32 EST Neurologic ASMT, ED Neurologic Assessment WDL : WDL Cara Butler Rn - 11/01/2020 1:32 EST Electronically signed by [facility], [facility] Conversion Anthropology Professor Cerner at 01/24/2023 10:42 AM CDT documented in this encounter Plan of Treatment Not on file documented as of this encounter Visit Diagnoses Not on filedocumented in this encounter Care Teams Sr. Consultant Relationship Specialty Start Date End Date Marielos Amaral, PRESIDENT [employer]UTION [address] [place] [address] PCP - General Nurse Practitioner 08/18/23 documented as of this encounter
--- OUTSIDE RECORDS SUMMARY | 2025-05-14 20:34 | XMS_ITS | Encounter Summary ---
Author Organization [employer] ([place], [place], [place], [place]) Address [address] [place] [address] Care Team Providers Care Microphone Boom Operator Name Role Phone Munir Brii RESTREPO Primary Care Provider Encounter Details Date Type Department Care Team (Late st Contact Info) Description 04/26/2022 Transcribed Document [facility] [place] Family Medicine [address] [place] [address] ProviderHaroldo MD [address] [place] [address] Social History Tobacco Use Types [...] Do you speak a language other than [place] at [facility]? Yes 10/30/2024 [...] Notes * Cerner Conversion Note - Haroldo Provider, - 04/26/2022 1:19 PM CDT [facility] [place] [id number] DEION ANTOINE :1950 Visit Time:04/22/2022 Your Visit Summary Your Care Team Admitting Physician - NITA WHEELER DO-INT Attending Physician - BARRETT PAK DO Primary Care Physician - KATELYN MCKEON MD-[facility] Referring Physician - HERMES, SELF REFERRED Your Diagnosis ARF (acute renal failure) Hypotension Neck pain, acute Paresthesias Potential stroke Shoulder pain, right Syncope Syncope/Near syncope Weakness of right leg These Are Your Goals Patient Discharge Goal Patient Discharge Goal: Home Discharge Vitals Temperature 36.8 ??C Heart Rate (Monitored) 69 Respiratory Rate 20 Blood Pressure 154/69 What to do next Instructions From Your Care Team Please STOP taking these home medications: 1. Bumex (Bumetanide) 2. Lisinopril 3. Spironolactone Please NOTE: Your Levothyroxine dose has been reduced to 75 mcg oral daily. New prescription provided. Discharge Activity: Discharge Activity: Activity as tolerated Diet: Discharge Diet: Diabetic diet (carb controlled) Follow-Up Appointments Follow Up with BRII AMARAL When Within 1 week Where: [address] [address]- Business (1) Follow Up with [facility] When Within 2 weeks Comments Follow up with LAMBERTO in 2 weeks @ [facility] with renal function panel and UA. Where: [address] [facility] [address] [place] [address]- Business (1) Medications What How Much When Instructions Next Dose Durable Medical Equipment (Glucometer Lancets) 1 Each Miscellaneous See Comment Glucometer Lancets. to check blood sugar TID. disp # 100. no refills. Pickup at [facility] Durable [facility] Equipment (Glucometer Test Strips) 1 Each Miscellaneous See Comment Glucometer Test Strips. to check blood sugar TID. disp # 100. no refills. Pickup at [facility] Equipment (Glucometer) 1 Each Miscellaneous See Comment Glucometer Pickup at [facility] insulin glargine (Basaglar KwikPen 100 units/ mL subcutaneous solution) 15 Unit(s) SubCutaneous Once a day (at bedtime) Pickup at [facility] levothyroxine (levothyroxine 75 mcg (0.075 mg) oral tablet) 1 Tablet(s) Oral Every Day Pickup at [facility] amiodarone (amiodarone 200 mg oral tablet) 1 Tablet(s) Oral Every Day apixaban (Eliquis 5 mg oral tablet) 1 Tablet(s) Oral Two Times A Day atorvastatin (atorvastatin 40 mg oral tablet) 1 Tablet(s) Oral At Bedtime cyanocobalamin (Vitamin B12 1000 mcg oral tablet) 1 Tablet(s) Oral Every Day ergocalciferol (ergocalciferol 1.25 mg (50,000 intl units) oral capsule) 1 Capsule(s) Oral Weekly hydrALAZINE (hydrALAZINE 50 mg oral tablet) 1 Tablet(s) Oral Two Times A Day metoprolol (Metoprolol Succinate ER 50 mg oral tablet, extended release) 1 Tablet(s) Oral Every Day omeprazole (omeprazole 40 mg oral delayed release capsule) 1 Capsule(s) Oral Every Day before a meal SITagliptin (Januvia 25 mg oral tablet) 1 Tablet(s) Oral Every Day tamsulosin (Flomax 0.4 mg oral capsule) 1 Capsule(s) Oral Every Day Pharmacy Information [facility] [place]: [id number] [place], [place] [id number] [phone] Take your medications faithfully. Do NOT skip [...] your retail pharmacy guidance. Allergies Mucinex amoxicillin penicillin Immunizations This Visit No Immunizations Found Education Materials Acute Kidney Injury, Adult Acute kidney injury is a sudden worsening of kidney function. The kidneys are organs that have several jobs. They filter the blood to remove waste products and extra fluid. They also maintain a healthy balance of minerals and hormones in the body, which helps control blood pressure and keep bones strong. With this condition, your kidneys do not do their jobs as well as they should. This condition ranges from mild to severe. Over time, it may develop into long-lasting (chronic) kidney disease. Early detection and treatment may prevent acute kidney injury from developing into a chronic condition. What are the causes? Common causes of this condition include: ??? A problem with blood flow to the kidneys. This may be caused by: ? Low blood pressure (hypotension) or shock. ? Blood loss. ? Heart and blood vessel (cardiovascular) disease. ? Severe griggs. ? Liver disease. ??? Direct damage to the kidneys. This may be caused by: ? Certain medicines. ? A kidney infection. ? Poisoning. ? Being around or in contact with toxic substances. ? A surgical wound. ? A hard, direct hit to the kidney area. ??? A sudden blockage of urine flow. This may be caused by: ? Cancer. ? Kidney stones. ? An enlarged prostate in males. What increases the risk? You are more likely to develop this condition if you: ??? Are older than age 65. ??? Are female. ??? Are hospitalized, especially if you are in critical condition. ??? Have certain conditions, such as: ? Chronic kidney disease. ? Diabetes. ? Coronary artery disease and heart failure. ? Pulmonary disease. ? Chronic liver disease. What are the signs or symptoms? Symptoms of this condition may not be obvious until the condition becomes severe. Symptoms of this condition can include: ??? Tiredness (lethargy) or difficulty staying awake. ??? Nausea or vomiting. ??? Swelling (edema) of the face, legs, ankles, or feet. ??? Problems with urination, such as: ? Pain in the abdomen, or pain along the side of your stomach (flank). ? Producing little or no urine. ? Passing urine with a weak flow. ??? Muscle twitches and cramps, especially in the legs. ??? Confusion or trouble concentrating. ??? Loss of appetite. ??? Fever. How is this diagnosed? Your health care provider can diagnose this condition based on your symptoms, medical history, and a physical exam. You may also have other tests, such as: ??? Blood tests. ??? Urine tests. ??? Imaging tests. ??? A test in which a sample of tissue is removed from the kidneys to be examined under a microscope (kidney biopsy). How is this treated? Treatment for this condition depends on the cause and how severe the condition is. In mild cases, treatment may not be needed. The kidneys may heal on their own. In more severe cases, treatment will involve: ??? Treating the cause of the kidney injury. This may involve changing any medicines you are taking or adjusting your dosage. ??? Fluids. You may need specialized IV fluids to balance your body's needs. ??? Having a catheter placed to drain urine and prevent blockages. ??? Preventing problems from occurring. This may mean avoiding certain medicines or procedures that can cause further injury to the kidneys. In some cases, treatment may also require: ??? A procedure to remove toxic wastes from the body (dialysis or continuous renal replacement therapy, CRRT). ??? Surgery. This may be done to repair a torn kidney or to remove the blockage from the urinary system. Follow these instructions at home: Medicines ??? Take [id number] and prescription medicines only as told by your health care provider. ??? Do not take any new medicines without your health care provider's approval. Many medicines can worsen your kidney damage. ??? Do not take any vitamin and mineral supplements without your health care provider's approval. Many nutritional supplements can worsen your kidney damage. Lifestyle ??? If your health care provider prescribed changes to your diet, follow them. You may need to decrease the amount of protein you eat. ??? Achieve and maintain a healthy weight. If you need help with this, ask your health care provider. ??? Start or continue an exercise plan. Try to exercise at least 30 minutes a day, 5 days a week. ??? Do not use any products that contain nicotine or tobacco, such as cigarettes, e-cigarettes, and chewing tobacco. If you need help quitting, ask your health care provider. General instructions ??? Keep track of your blood pressure. Report changes in your blood pressure as told by your health care provider. ??? Stay up to date with your vaccines. Ask your health care provider which vaccines you need. ??? Keep all follow-up visits as told by your health care provider. This is important. Where to find more information ??? [place] Association of Kidney Patients: www.aakp.org ??? National Kidney Foundation: www.kidney.org ??? [place] Kidney Fund: www.akfinc.org ??? Life Options Rehabilitation Program: ? www.lifeoptions.org ? www.kidneyschool.org Contact a health care provider if: ??? Your symptoms get worse. ??? You develop new symptoms. Get help right away if: ??? You develop symptoms of worsening kidney disease, which include: ? Headaches. ? Abnormally dark or light skin. ? Easy bruising. ? Frequent hiccups. ? Chest pain. ? Shortness of breath. ? End of menstruation in women. ? Seizures. ? Confusion or altered mental status. ? Abdominal or back pain. ? Itchiness. ??? You have a fever. ??? Your body is producing less urine. ??? You have pain or bleeding when you urinate. Summary ??? Acute kidney injury is a sudden worsening of kidney function. ??? Acute kidney injury can be caused by problems with blood flow to the kidneys, direct damage to the kidneys, and sudden blockage of urine flow. ??? Symptoms of this condition may not be obvious until it becomes severe. Symptoms may include edema, lethargy, confusion, nausea or vomiting, and problems passing urine. ??? This condition can be diagnosed with blood tests, urine tests, and imaging tests. Sometimes a kidney biopsy is done to diagnose this condition. ??? Treatment for this condition often involves treating the underlying cause. It is treated with fluids, medicines, diet changes, dialysis, or surgery. This information is not intended to replace advice given to you by your health care provider. Make sure you discuss any questions you have with your health care provider. Document Revised: 08/01/2020 Document Reviewed: 08/01/2020 [employer] Patient Education ?? 2020 [employer]. Emergency Awareness and Preventative Care STROKE is [...] Assistance with quitting is available by contacting 4-692-QKXO-NOW. This is a free resource providing counseling, [...] This Visit (last charted value for your 04/22/2022 visit) Hematology 04/26/2022 7:12 AM WBC: 4.9 K/uL -- Normal range between ( 3.6 and 9.5 ) RBC: 2.98 Million/uL -- Normal range between ( 4.20 and 5.70 ) Hct: 26.9 % -- Normal range between ( 40.1 and 51.0 ) Hgb: 9.0 g/dL -- Normal range between ( 13.5 and 17.3 ) Platelet Count: 208 K/uL -- Normal range between ( 163 and 369 ) MCH: 30.2 pg -- Normal range between ( 25.6 and 32.2 ) MCHC: 33.5 Gram/dL -- Normal range between ( 32.2 and 36.5 ) MCV: 90.3 fL -- Normal range between ( 79.0 and 94.8 ) Slide Review: No Eos %: 2.2 % -- Normal range between ( 0.0 and 7.0 ) [place] #: 0.48 K/uL -- Normal range between ( 0.16 and 1.00 ) Eos #: 0.11 x10(3)/uL -- Normal range between ( 0.00 and 0.80 ) [place] %: 9.8 % -- Normal range between ( 3.0 and 9.0 ) Baso %: 0.6 % -- Normal range between ( 0.0 and 1.5 ) Baso #: 0.03 x10(3)/uL -- Normal range between ( 0.00 and 0.20 ) RDW: 12.4 % -- Normal range between ( 11.7 and 14.9 ) Neut %: 65.3 % -- Normal range between ( 34.0 and 71.0 ) Neut #: 3.21 K/uL -- Normal range between ( 1.56 and 6.13 ) Lymph %: 21.5 % -- Normal range between ( 19.3 and 53.1 ) Lymph #: 1.06 x10(3)/uL -- Normal range between ( 1.00 and 3.90 ) MPV: 10.4 fL -- Normal range between ( 9.4 and 12.4 ) IG#: 0.03 x10(3)/uL -- Normal range between ( 0.00 and 0.05 ) IG%: 0.60 % -- Normal range between ( 0.00 and 0.60 ) 04/22/2022 12:[address] Oth: 0 % -- Normal range between ( 0 and 5 ) Urinalysis 04/22/2022 9:19 AM Ur RBC: 11-20 /HPF Urine Nitrite: Negative Urine Leukocyte Esterase: 25 Urine Appearance: Clear Urine Glucose Dipstick: 1+ Urine Blood Dipstick: Trace Urine Urobilinogen Dipstick: Normal EU/dL Urine Protein Dipstick: Negative Ur Bacteria: 1+ Ur Squamous Epithelial Cells: 3-5 /HPF Urine Color: Light-Yellow Ur WBC: 6-10 /HPF Urine Ketones Dipstick: Negative Ur Mucous: 1+ Urine pH Dipstick: 5.0 -- Normal range between ( 6.0 and 8.0 ) Ur Hyaline Casts: 11-20 /LPF Urine Bilirubin Dipstick: Negative Urine Specific [place]: 1.010 -- Normal range between ( 1.005 and 1.030 ) Urine Type.: U CleanCatch Urine Culture if Indicated: Not Indicated Microbiology 04/22/2022 7:20 PM Urine Culture: POS 04/22/2022 1:34 PM SARS-CoV-2 (COVID19 PCR): Negative Urine Chemistry 04/22/2022 12:50 PM Creatinine Urine Random: 63 mg/dL Urea Nitrogen Urine Random: 235 mg/dL Osmolality Urine: 326 mOsm/kg -- Normal range between ( 50 and 1400 ) Sodium Ur [place]: 85 mMole/Liter Protein Ur [place]: 20 mg/dL General Chemistry 04/26/2022 1:12 PM Glucose POC2: 187 mg/dL -- Normal range between ( 70 and 110 ) Device Comment 2: Device Comment 2 Device Comment 1: Device Comment 1 04/26/2022 7:12 AM Creatinine Level: 2.50 mg/dL -- Normal range between ( 0.70 and 1.30 ) Sodium Level: 134 mmol/L -- Normal range between ( 136 and 146 ) Potassium Level: 4.9 mmol/L -- Normal range between ( 3.5 and 5.1 ) Chloride Level: 106 mmol/L -- Normal range between ( 102 and 112 ) Carbon Dioxide Level: 22 mmol/L -- Normal range between ( 21 and 32 ) Anion Gap: 11 -- Normal range between ( 9 and 20 ) Bun/Creatinine: 14.8 -- Normal range between ( 8.0 and 20.0 ) Calcium Level: 8.9 mg/dL -- Normal range between ( 8.4 and 10.1 ) eGFR : 31 mL/min/1.73m2 eGFR NonAfrican: 26 mL/min/1.73m2 Glucose Level: 180 mg/dL -- Normal range between ( 74 and 106 ) Blood Urea Nitrogen: 37 mg/dL -- Normal range between ( 7 and 22 ) 04/25/2022 6:55 AM Magnesium Level: 1.7 mg/dL -- Normal range between ( 1.5 and 2.4 ) 04/24/2022 10:11 AM Phosphorus: 4.0 mg/dL -- Normal range between ( 2.5 and 4.9 ) Albumin Level: 3.0 Gram/dL -- Normal range between ( 3.4 and 5.0 ) 04/22/2022 1:34 PM Uric Acid: 11.6 mg/dL -- Normal range between ( 3.5 and 7.2 ) Osmolality Serum: 309 mOsm/kg -- Normal range between ( 275 and 295 ) 04/22/2022 8:09 AM Bilirubin Total: 0.6 mg/dL -- Normal range between ( 0.2 and 1.2 ) Hgb A1C: 12.3 % A/G Ratio: 0.9 -- Normal range between ( 1.1 and 2.5 ) ALT: 56 Units/Liter -- Normal range between ( 16 and 61 ) AST: 28 Units/Liter -- Normal range between ( 5 and 37 ) Globulin: 3.9 Gram/dL -- Normal range between ( 1.5 and 4.5 ) Alk Phos: 82 Units/Liter -- Normal range between ( 27 and 136 ) eAVG Glucose: 306 mg/dL Bilirubin Direct: 0.4 mg/dL -- Normal range between ( 0.0 and 0.2 ) Protein Total: 7.3 Gram/dL -- Normal range between ( 6.4 and 8.2 ) Endocrinology 04/22/2022 6:16 PM FT4: 1.98 ng/dL -- Normal range between ( 0.76 and 1.46 ) 04/22/2022 1:34 PM TSH: 0.088 mcInt Units/mL -- Normal range between ( 0.358 and 3.740 ) Computed Tomography 04/22/2022 1:[address] Abdomen Pelvis WO: CT Abdomen Pelvis WO 04/22/2022 10:[address] Head WO: CT Head WO CT Spine Cervical WO: CT Spine Cervical WO Diagnostic Radiology 04/22/2022 9:48 AM CR Chest 1 Vw Portable: CR Chest 1 Vw Portable Ultrasound 04/23/2022 11:40 AM US Renal Comp: US Renal Comp Patient Name:DEION ANTOINE I have received and understand this information and was given the opportunity to ask questions. Patient/Senior Data Developer Name: Patient/Senior Data Developer Signature: Relationship to Patient: Clinician/Hospital Senior Data Developer Signature: Date: documented in this encounter Plan of Treatment Not on file documented as of this encounter Visit Diagnoses Not on filedocumented in this encounter Care Teams Microphone Boom Operator Relationship Specialty Start Date End Date Brii Amaral APRN [address] [place] [address] PCP - General Nurse Practitioner 08/18/23 documented as of this encounter
--- OUTSIDE RECORDS SUMMARY | 2025-05-14 20:34 | XMS_ITS | Encounter Summary ---
Author Organization [employer] ([place], [place], [place], [place]) Address [address] [place] [address] Care Team Providers Care Claim Rep Name Role Phone Munir Marielos RESTREPO Primary Care Provider Encounter Details Date Type Department Care Team (Late st Contact Info) Description 04/26/2022 Transcribed Document [facility] [place] [address] [place] [address] ProviderHaroldo MD [address] [place] [address] Social History Tobacco Use Types [...] speak a language other than Citizen Of [place] at [facility]? Yes 10/30/2024 Do you [...] Conversion Note - Historical Provider, - 04/26/2022 12:32 PM CDT Patient Education Materials Follows: Acute Kidney Injury, Adult Acute kidney injury [...] these instructions at home: Medicines ??? Take wlux-jfw-qujxzzl and prescription medicines only as told by [...] important. Where to find more information ??? [employer] Association of Kidney Patients: www.aakp.org ??? National Kidney Foundation: www.kidney.org ??? [employer] Kidney Fund: www.akfinc.org ??? Life Options Rehabilitation [...] provider. Document Revised: 08/01/2020 Document Reviewed: 08/01/2020 [employer] Patient Education ? 2020 [employer]. Electronically signed by Renetta Soto Conversion [employer] Supervisor Cerner at 01/24/2023 10:32 AM CDT documented in this encounter Plan of Treatment Not on file documented as of this encounter Visit Diagnoses Not on filedocumented in this encounter Care Teams Claim Rep Relationship Specialty Start Date End Date Marielos Amaral, KAYE [address] [place] [address] PCP - General Nurse Practitioner 08/18/23 documented as of this encounter
--- OUTSIDE RECORDS SUMMARY | 2025-05-14 20:34 | XMS_ITS | Encounter Summary ---
Author Organization [employer] ([place], [place], [place]) Address [address] [place] [address] Care Team Providers Care Haul Truck Driver Name Role Phone Marielos Amaral APRN Primary Care Provider Encounter Details Date Type Department Care Team (Late st Contact Info) Description 12/12/2020 Transcribed Document [facility] Cardiology [address] [place] [address] [place] [address] [place] [address] [address] [place] [address] Social History Tobacco Use Types Packs/Day Years Used Date Smoking Tobacco: Never Assessed Sex and Gender Information Value Date Recorded Sex Assigned at Not on file Legal Sex Male 3:45 PM CDT Gender Identity Not on file Sexual Orientation Not on file documented as of this encounter Miscellaneous Notes * Cerner Conversion Note - Mariam Salguero MD - 12/12/2020 8:30 AM EST Patient: ZACKARY ANTOINE Age: 69 years Sex: Male : 1950 Associated Diagnoses: None Author: MARIAM SALGUERO MD-CAR Basic Information Electromagnet Crane Operator: Mariam Salguero Chief Complaint Abnormal stress History of Present Illness 69 year old male with a history of ICM with EF 40% per last ECHOs, paroxysmal atrial fibrillation on chronic Eliquis, CAD s/p CABG x4 (2017), DM, HTN, and HLD and ongoing tobacco abuse who had a recent ER visit on 10/31/20 for FVO and uncontrolled HTN. He was given Lebatolol for HTN and discharged home on bumex. He was seen in the office on Nov 06 and stated he was feeling better, but he is still having symptoms of PND and orthopnea. He also stated he has BLE edema, more during the evening than during the day. He denies chest pain, shortness of air during the day, palpitations, dizziness, syncope, or claudication. The patient remains compliant with his medications. He underwent outpatient Lexiscan on 11/24/20 with evidence of a dilated cardiomyopathy with an EF of 37%, however no clear reversibility to suggest ischemia. He presents today for elective LHC with Dr. Salguero. Patient is agreeable and is willing to proceed. Review of Systems Constitutional: Negative except as documented in history of present illness. Eye: Negative except as documented in history of present illness. Ear/Nose/Mouth/Throat: Negative except as documented in history of present illness. Respiratory: Negative except as documented in history of present illness. Cardiovascular: Negative except as documented in history of present illness. Gastrointestinal: Negative except as documented in history of present illness. Genitourinary: Negative except as documented in history of present illness. Hematology/Lymphatics: Negative except as documented in history of present illness. Endocrine: Negative except as documented in history of present illness. Immunologic: Negative except as documented in history of present illness. Musculoskeletal: Negative except as documented in history of present illness. Integumentary: Negative except as documented in history of present illness. Neurologic: Alert and oriented X4. Psychiatric: Negative except as documented in history of present illness. Health Status Allergies (2) Active Reaction amoxicillin None Documented Mucinex None Documented Home Medications (16) Active amiodarone 200 mg oral tablet 200 mg = 1 Tab, Oral, Daily atorvastatin 40 mg oral tablet 40 mg = 1 Tab, Oral, At Bedtime bumetanide 1 mg oral tablet 1 mg = 1 Tab, Oral, Daily Eliquis 5 mg oral tablet [...] Int Units = 1 Tab, Oral, Daily Allergies: Allergic Reactions (Selected) Severity Not Documented Amoxicillin- No reactions were documented. Mucinex- No reactions were documented. Current medications: (Selected) Prescriptions Prescribed bumetanide 1 mg oral tablet: 1 Tab, Oral, Daily, for 7 Day(s), 7 Tab, 0 Refill(s) Documented Medications Documented Eliquis [...] Tab, Oral, BID, 60 Tab, 0 Refill(s) nitroglycerin: 0 Refill(s) omeprazole 40 mg oral delayed release capsule: 1 Cap, Oral, Daily, before a meal, 30 Cap, 0 Refill(s) Problem list: All Problems Angina / 201121505 / Confirmed Acute cerebrovascular accident (CVA) / 696114996 / Confirmed Coronary artery disease / 9836485083 / Confirmed Diabetes mellitus type II / 90610926 / Confirmed GERD - Gastro-esophageal reflux disease / 2294834174 / Confirmed Heart failure / 815166726 / Confirmed Heart murmur / 489390943 / Confirmed History of obstructive sleep apnea / 33333310 / Confirmed Hyperlipidemia / 88255462 / Confirmed Hypertension / 76258089 / Confirmed Impaired vision / 02093697 / Confirmed Enlarged prostate / 587262477 / Confirmed Migraine / 99068855 / Confirmed Stented coronary artery / 8701925007 / Confirmed Histories No education data available. Social & Psychosocial Habits Alcohol 04/14/2019 Alcohol [...] of Tobacco Use 43 Packs/Tins Daily 0.5 Past Medical History: Active Atrial fibrillation (41583183) CAD - Coronary artery disease (9749372833) Cardiomyopathy (448600903) HLD - Hyperlipidemia (306437582) HTN - Hypertension (3882705712) Type 2 diabetes mellitus (805354569) Family History: Patient was adopted. No family history items have been selected or recorded. Procedure history: Cardiac catheterization. hernia repair. Tonsillectomy. Cholecystectomy; (08376). Appendectomy. left arm surgery. Coronary stents. EGD - Esophagogastroduodenoscopy ([id number]). Comments: 04/12/2020 7:04 EDT - Roxana Brady, RN with radio frequency ablation CABG x 4 - Coronary artery bypass grafts x 4 ([id number]). Physical Examination VS/Measurements No qualifying data available General: Alert and oriented, No acute distress. Eye: Pupils are equal, round and reactive to light, Normal conjunctiva, Vision unchanged. HENT: Normocephalic, Oral mucosa is moist. Neck: Supple, Non-tender, No jugular venous distention. Respiratory: Lungs are clear to auscultation, Respirations are non-labored, Breath sounds are equal, Symmetrical chest wall expansion. Cardiovascular: Normal rate, Regular rhythm, No murmur, Normal peripheral perfusion. Gastrointestinal: Soft, Non-distended. Genitourinary: Exam deferred. Musculoskeletal: Normal range of motion, Normal strength, No deformity. Integumentary: Warm, Dry, Lutz, No rash. Neurologic: Alert, Oriented, No focal deficits. Psychiatric: Cooperative, Appropriate mood & affect. Review / Management Lexiscan 11/30/2020 Patient underwent a Lexiscan myocardial perfusion study; [...] however, no clear reversibility to suggest ischemia. Results review: No qualifying data available. Impression and Plan IMPRESSION: Abnormal Lexiscan CAD h.o CABG x4 (2016) ICM EV 40% per ECHO 2018, had improved to 55% Nov 2019 Paroxysmal Atrial fibrillation chronic Eliquis HTN HLD IDDM Previous stroke (2019) PLAN: Left Heart Catheterization via right radial artery. Risks, benefits, and alternatives discussed. Patient verbalized understanding and wishes to proceed. Written consent will be obtained. Further recommendations pending [facility] results. documented in this encounter Plan of Treatment Not on file documented as of this encounter Visit Diagnoses Not on filedocumented in this encounter Care Teams Haul Truck Driver Relationship Specialty Start Date End Date Marielos Amaral, KAYE [address] [place] [address] PCP - General Nurse Practitioner 08/18/23 documented as of this encounter
--- OUTSIDE RECORDS SUMMARY | 2025-05-14 20:34 | XMS_ITS | Encounter Summary ---
Author Organization [employer] ([place], [place], [place]) Address [address] [place] [address] Care Team Providers Care Last Model Maker Name Role Phone Marielos Amaral KAYE Primary Care Provider [phone] Encounter Details Date Type Department Care Team (Late st Contact Info) Description 02/08/2019 Transcribed Document [facility] [place] Family Medicine [address] [place] [address] ProviderHaroldo MD [address] [place] [address] Social History Tobacco Use Types Packs/Day Years Used Date Smoking Tobacco: Never Assessed Sex and Gender Information Value Date Recorded Sex Assigned at Not on file Legal Sex Male 3:45 PM CDT Gender Identity Not on file Sexual Orientation Not on file documented as of this encounter Miscellaneous Notes * Cerner Conversion Note - Haroldo ProviderMD - 02/08/2019 9:43 AM CDT UM Authorization Entered On: 02/08/2019 9:43 EDT Performed On: 02/08/2019 9:43 EDT by DIONE REY, Ehr Trainer Primary Insurance Authorization Authorization and Policy Numbers : Insurance 1 Health Plan: [employer] Policy Number: [id number] Authorization Number: PENDING IP Insurance Primary Name : [employer] Choice Authorization Status-Primary : Awaiting callback Authorized Service Begin Date-Primary : 02/05/2019 EDT Authorization Comments-Primary : inpt auth is pending per [employer]ity trans id# [id number] Historical Authorization Comments-Primary : Comment 1: setup case for IP on availity. faxed clinicals via cerner. (GEGE JUÁREZ RN 02/07/2019 11:56) Comment 2: setup on availity obs approved. (GEGE JUÁREZ RN 02/06/2019 08:52) DIONE REY, Ehr Trainer - 02/08/2019 9:43 EDT Electronically signed by Brittany [facility] Conversion Outdoor Advertising Leasing Agent Cerner at 01/24/2023 10:31 AM CDT documented in this encounter Plan of Treatment Not on file documented as of this encounter Visit Diagnoses Not on filedocumented in this encounter Care Teams Last Model Maker Relationship Specialty Start Date End Date Marielos Amaral, OUTSIDE SALES ACCOUNT REPRESENTATIVE [address] [id number] PCP - General Nurse Practitioner 08/18/23 documented as of this encounter
--- OUTSIDE RECORDS SUMMARY | 2025-05-14 20:34 | XMS_ITS | Encounter Summary ---
Author Organization [employer] ([place], [place], [place]) Address [address] [place] [address] Care Team Providers Care Strategy Intern Name Role Phone Marielos Amaral KAYE Primary Care Provider Encounter Details Date Type Department Care Team (Late st Contact Info) Description 02/08/2019 Transcribed Document [facility] [place] Family Medicine [address] [place] [address] ProviderHaroldo MD [address] [place] [address] Social History Tobacco Use Types Packs/Day Years Used Date Smoking Tobacco: Never Assessed Sex and Gender Information Value Date Recorded Sex Assigned at Not on file Legal Sex Male 3:45 PM CDT Gender Identity Not on file Sexual Orientation Not on file documented as of this encounter Miscellaneous Notes * Cerner Conversion Note - Haroldo ProviderMD - 02/08/2019 5:00 PM CDT Chart Check - Review Order Profile Entered On: 02/08/2019 18:51 EDT Performed On: 02/08/2019 17:00 EDT by Lina Chaudhary Rn-Flex Team Chart Check Powerplans Initiated/Discontinued as Appropriate : Yes All Active Orders Reviewed : Yes Lina Chaudhary Rn-Flex Team - 02/08/2019 18:51 EDT documented in this encounter Plan of Treatment Not on file documented as of this encounter Visit Diagnoses Not on filedocumented in this encounter Care Teams Strategy Intern Relationship Specialty Start Date End Date Amaral, Marielos, INFORMATION DELIVERY ANALYST [address] [place] [address] PCP - General Nurse Practitioner 08/18/23 documented as of this encounter
--- OUTSIDE RECORDS SUMMARY | 2025-05-14 20:34 | XMS_ITS | Encounter Summary ---
Author Organization [email or web address] ([place], [place], [place], [place]) Address [address] [place] [address] Care Team Providers Care Content Architect Name Role Phone Marielos Amaral KAYE Primary Care Provider [phone] Encounter Details Date Type Department Care Team (Late st Contact Info) Description 12/12/2020 Transcribed Document [facility] [place] Family Medicine [address] [place] [address] ProviderHaroldo MD [address] [place] [address] Social History Tobacco Use Types Packs/Day Years Used Date Smoking Tobacco: Never Assessed Sex and Gender Information Value Date Recorded Sex Assigned at Not on file Legal Sex Male 3:45 PM CDT Gender Identity Not on file Sexual Orientation Not on file documented as of this encounter Miscellaneous Notes * Cerner Conversion Note - Haroldo ProviderMD - 12/12/2020 4:43 PM RACING BOARD MARKER [facility] [address] [place] [id number] ZACKARY ANTOINE :1950 Visit Time:12/12/2020 Your Visit Summary Your Care Team Admitting Physician - MARIAM CHATMAN MD-CAR Attending Physician - MARIAM CHATMAN MD-CAR Primary Care Physician - KATELYN MCKEON MD-[facility] Referring Physician - FALLUJI, NEZAR M, MD-CAR Your Diagnosis Atherosclerotic heart disease of [place] coronary artery without angina pectoris, Atherosclerotic heart disease of [place] coronary artery without angina pectoris Discharge Vitals Heart Rate (Monitored) 72 Respiratory Rate 17 Blood Pressure 180/84 What to do next Instructions From Your Care Team Diet after Discharge: Heart healthy diet, _, _ Activity after Discharge: _, Rest and relax today, No strenuous activity Driving after Discharge: Do not drive for 24 hours Showering/Bathing: May shower tomorrow, No tub bathing, soaking or swimming for 3 to 5 days. Notify Provider of: Monitor site for bleeding, if bleeding should occur, apply pressure and call 911. . Follow-Up Appointments Follow Up with MARIAM CHATMAN When 01/15/2021 01:00 PM EDT Comments Appointment has been made Where: [address] [place] [address] [place] [address]- Business (1) Medications What How Much When Instructions Next Dose bumetanide (Bumex) 1 Milligram(s) Oral Every Day acetaminophen (Tylenol 325 mg oral tablet) 2 [...] 100 mg oral tablet) 1 Tablet(s) Oral Two Times A Day tamsulosin (Flomax 0.4 mg oral capsule) [...] This Visit No Immunizations Found Education Materials Groin Site Care Refer to this sheet [...] questions after your procedure. HOME CARE INSTRUCTIONS ??? You may shower 24 hours after the procedure. Remove the bandage (dressing ) and gently wash the site with plain soap and water. Gently pat the site dry. ??? Do not apply powder or lotion to the site. ??? Do not sit in a bathtub, swimming pool, or whirlpool for 5 to 7 days. ??? No bending, squatting, or lifting anything over 10 pounds (4.5 kg) as directed by your caregiver. ??? Inspect the site at least twice daily. ??? Do not drive home if you are discharged the same day of the procedure. Have someone else drive you. ??? You may drive 24 hours after the procedure unless otherwise instructed by your caregiver. What to expect: ??? Any bruising will usually fade within 1 to 2 weeks. ??? Blood that collects in the tissue (hematoma ) may be painful to the touch. It should usually decrease in size and tenderness within 1 to 2 weeks. SEEK IMMEDIATE MEDICAL CARE IF: ??? You have unusual pain at the groin site or down the affected leg. ??? You have redness, warmth, swelling, or pain at the groin site. ??? You have drainage (other than a small amount of blood on the dressing). ??? You have chills. ??? You have a fever or persistent symptoms for more than 72 hours. ??? You have a fever and your symptoms suddenly get worse. ??? Your leg becomes pale, cool, tingly, or numb. ??? You have heavy bleeding from the site. Hold pressure on the site. Document Released: 10/25/2011 Document Revised: 12/14/2012 Document Reviewed: 10/25/2011 [facility] Patient Information ??2014 [employer]. Coronary Angiogram A coronary angiogram is an [...] including vitamins, herbs, eye drops, creams, and juck-bii-biwpjgj medicines. ??? Any problems you or family [...] Up to 2 hours before the procedure ??? you may continue to drink clear liquids, such as water, clear fruit juice, black coffee, and plain tea. Eating and drinking restrictions Follow instructions from your health care provider about eating and drinking, which may include: ??? 8 hours before the procedure ??? stop eating heavy meals or foods such as meat, fried foods, or fatty foods. ??? 6 hours before the procedure ??? stop eating light meals or foods, such as toast or cereal. ??? 2 hours before the procedure ??? stop drinking clear liquids. General instructions ??? [...] 03/28/2004 Document Revised: 09/04/2018 Document Reviewed: 07/04/2017 Elsevier Patient Education ?? 2020 [employer]. Heart-Healthy Eating Plan Heart-healthy meal planning includes: [...] plate with lean protein foods. ??? Eat 4???5 servings of vegetables per day. A serving of vegetables is: ? 1 cup of raw or cooked vegetables. ? 2 cups of raw leafy greens. ??? Eat 4???5 servings of fruit per day. A serving of fruit is: ? 1 medium whole fruit. ? ?? cup of dried fruit. ? ?? cup of fresh, frozen, or canned fruit. ? ?? cup of 100% fruit juice. ??? Eat more foods that have soluble fiber. These are apples, broccoli, carrots, beans, peas, and barley. Try to get 20???30 g of fiber per day. ??? Eat 4???5 servings of nuts, legumes, and seeds per week: ? 1 serving of dried beans or legumes equals ?? cup after being cooked. ? 1 serving of nuts is ?? cup. ? 1 serving of seeds equals [...] Fats and oils Meat fat, or shortening. [place] butter, hydrogenated oils, palm oil, coconut oil, [...] 03/23/2013 Document Revised: 11/26/2018 Document Reviewed: 10/30/2018 [employer] Patient Education ?? 2020 [employer]. Moderate Conscious Sedation, Adult, Care After These [...] you are awake and alert. ??? Take urei-bqt-zrxlqoh and prescription medicines only as told by [...] 07/13/2014 Document Revised: 09/04/2018 Document Reviewed: 01/11/2017 [employer] Patient Education ?? 2020 [employer]. FAQ ??? Patient COVID-19 testing Why do I need [...] patients who test positive for COVID-19. If I???m a patient, should I wear a mask? [...] through the local health department and the [place] Department for Public Health. Those organizations are [...] need during a recommended self-quarantine period. The patient???s name is not revealed to anyone during the contact tracing interviews, even if a contact asks. Who would be considered a ???close contact?? ? According to the CDC, a close [...] a face covering and maintain social distancing ??? at least 6 feet from others at [...] and need to call 911, notify the blunger machine operator that you have, or think you [...] others. You should stay in a specific ???sick room?? if possible, and away from other people [...] (including before you enter a health care provider???s office). ??? If you are caring for [...] clean your hands with an alcohol-based hand hazardous substances scientist that contains at least 60% alcohol. Clean your hands often. ??? Wash hands: Wash your hands often with soap and water for at least 20 seconds when visibly dirty. This is especially important after blowing your nose, coughing or sneezing, and going to the bathroom, and before eating or preparing food. ??? Hand hazardous substances scientist: Use an alcohol-based hand hazardous substances scientist with at least 60% alcohol, covering all [...] and water or put them in the rate clerk. Clean all high-touch surfaces every day. Clean high-touch surfaces in your isolation area (???sick room?? and bathroom) every day; let a caregiver clean and disinfect high-touch surfaces in other areas of the home. ??? Clean and disinfect: Routinely clean high-touch surfaces in your ???sick room?? and bathroom. Let someone else clean and disinfect surfaces in common areas, but not your bedroom and bathroom. ? If a caregiver or other person needs to clean and disinfect a sick person???s bedroom or bathroom, they should do so [...] or body fluids on them. ??? Household gwot ia/ilo intelligence support and disinfectants: Clean the area or item with soap and water or another detergent if it is dirty. Then, use a household disinfectant. ??? Be sure to follow the instructions on the label to ensure safe and effective use of the product. Many products recommend keeping the surface wet for several minutes to ensure germs are killed. Many also recommend precautions such as wearing gloves and making sure you have good ventilation during use of the product. ??? Most EPA-registered household disinfectants should be effective. A full list of disinfectants can be found here: https://www.epa.gov/pesticide-registration/tkml-d-bywzlfqbsnlhi-kio-mfwwvkl-ow rs-cov-2 Emergency Awareness and Preventative Care STROKE is [...] Assistance with quitting is available by contacting 6-486-NEXE-NOW. This is a free resource providing counseling, [...] This Visit (last charted value for your 12/12/2020 visit) Hematology 12/12/2020 9:10 AM Platelet Count: 208 K/uL -- Normal range between ( 163 and 369 ) Microbiology 12/08/2020 11:00 AM SARS-CoV-2 (COVID19 PCR): Negative Vascular Ultrasound 12/12/2020 12:52 PM VL Vascular Access: VL Vascular Access Patient Name:ZACKARY ANTOINE I have received and understand this information and was given the opportunity to ask questions. Patient/Production Expert Name: Patient/Production Expert Signature: Relationship to Patient: Clinician/Hospital Production Expert Signature: Date: Electronically signed by Brittany, [facility] Conversion Slurry Mixer Cerner at 01/24/2023 10:30 AM CDT documented in this encounter Plan of Treatment Not on file documented as of this encounter Visit Diagnoses Not on filedocumented in this encounter Care Teams Content Architect Relationship Specialty Start Date End Date Marielos Amaral, BRIM SETTER [address] [place] [address] PCP - General Nurse Practitioner 08/18/23 documented as of this encounter
--- OUTSIDE RECORDS SUMMARY | 2025-05-14 20:34 | XMS_ITS | Encounter Summary ---
Author Organization [employer] ([place], [place], [place], [place]) Address [address] [place] [address] Care Team Providers Care Edge Drummer Name Role Phone Marielos Amaral KAYE Primary Care Provider Encounter Details Date Type Department Care Team (Late st Contact Info) Description 02/08/2019 Transcribed Document [facility] [place] [address] [place] [address] ProviderHaroldo MD [address] [place] [address] Social History Tobacco Use Types Packs/Day Years Used Date Smoking Tobacco: Never Assessed Sex and Gender Information Value Date Recorded Sex Assigned at Not on file Legal Sex Male 3:45 PM CDT Gender Identity Not on file Sexual Orientation Not on file documented as of this encounter Miscellaneous Notes * [employer] Conversion Note - Haroldo ProviderMD - 02/08/2019 2:00 AM CDT Frame Table Operator Helper Details Entered On: 02/08/2019 3:35 EDT Performed On: 02/08/2019 2:00 EDT by Kemi Berger RN Order Details Transport Mode Order Detail : Wheelchair Isolation Precautions Order Detail : Standard Precautions Order Detail : N/A IV Order Detail : 1 Oxygen Order Detail : 0 Nurse Collect Order Detail : 0 Lift/Transfer : Minimal Central Line Order Detail : No Room Service : Appropriate Arterial Line : No Kemi Berger RN - 02/08/2019 3:34 EDT documented in this encounter Plan of Treatment Not on file documented as of this encounter Visit Diagnoses Not on filedocumented in this encounter Care Teams Edge Drummer Relationship Specialty Start Date End Date Marielos Amaral, MEAT APPRENTICE [address] [address] PCP - General Nurse Practitioner 08/18/23 documented as of this encounter
--- OUTSIDE RECORDS SUMMARY | 2025-05-14 20:34 | XMS_ITS | Encounter Summary ---
Author Organization [employer] ([place], [place], [place], [place]) Address [address] [place] [address] Care Team Providers Care Steel Sampler Name Role Phone Marielos Amaral SYSTEMS ACCOUNTANT Primary Care Provider Encounter Details Date Type Department Care Team (Late st Contact Info) Description 10/31/2020 Transcribed Document [facility] [place] [address] [place] [address] ProviderHaroldo MD [address] [place], [place] [id number] Social History Tobacco Use Types Packs/Day Years Used Date Smoking Tobacco: Never Assessed Sex and Gender Information Value Date Recorded Sex Assigned at Not on file Legal Sex Male 3:45 PM CDT Gender Identity Not on file Sexual Orientation Not on file documented as of this encounter Miscellaneous Notes * Cerner Conversion Note - Historical ProviderMD - 10/31/2020 11:54 PM CORD SPLICER Patient: ZACKARY ANTOINE Age: 69 years Sex: Male : 1950 Associated Diagnoses: Acute exacerbation of CHF (congestive heart failure) Author: FANY MCCRACKEN MD Basic Information Additional information: Chief Complaint from Nursing Triage Note : Chief Complaint 10/31/2020 23:42 EST Chief Complaint pt request delay of triage to use the bathroom NAD noted, ambulatory to BR. reports for 1 wk when laying down develops upper bilat CP with SOA. . History of Present Illness The patient presents with difficulty breathing. The onset was 1 weeks ago. The course/duration of symptoms is worsening. Degree at onset mild. Degree at present moderate. There are Exacerbating factorss including exertion and lying flat. There are Relieving factorss including rest and sitting upright. Risk factors consist of coronary artery disease, congestive heart failure, diabetes mellitus, hypertension, not pulmonary embolism, not deep vein thrombosis, not chronic obstructive pulmonary disease and not asthma. Associated symptoms: denies chest pain, denies fever, denies chills, denies cough, denies nausea, denies vomiting and denies abdominal pain. Review of Systems Constitutional symptoms: No fever, no chills, no sweats, no weakness, no fatigue. Skin symptoms: No rash, Eye symptoms: Vision unchanged, no pain, no discharge, no blurred vision. ENMT symptoms: No ear pain, no sore throat, no nasal congestion. Respiratory symptoms: Shortness of breath, No cough, Cardiovascular symptoms: No chest pain, no palpitations, no syncope. Gastrointestinal symptoms: No abdominal pain, no nausea, no vomiting, no diarrhea. Genitourinary symptoms: No dysuria, no hematuria. Musculoskeletal symptoms: No back pain, no Joint pain. Neurologic symptoms: No headache, no dizziness, no numbness, no weakness. Health Status Allergies: Allergic Reactions (Selected) Severity Not Documented Amoxicillin- No reactions were documented. Mucinex- No reactions were documented.. Medications: (Selected) Inpatient Medications Ordered Normal Saline Flush: 10 mL, IV Push, See Comment aspirin: 324 mg, Chew, 1-Time Documented Medications Documented Eliquis 5 mg oral [...] 0 Refill(s). Past Medical/ Family/ Social History Surgical history: Cardiac catheterization. hernia repair. Tonsillectomy. Cholecystectomy; (CPT4 62965). Appendectomy. left arm surgery. Coronary stents. EGD - Esophagogastroduodenoscopy (SNOMED CT [id number]). Comments: 04/12/2020 7:04 AIMEET - Roxana Brady RN with radio frequency ablation CABG x 4 - Coronary artery bypass grafts x 4 (SNOMED CT [id number])., Reviewed as documented in chart. Family history: [...] documented in chart. Problem list: Active Problems (14) Acute cerebrovascular accident (CVA) Angina Coronary artery disease Diabetes mellitus type II Enlarged prostate GERD - Gastro-esophageal reflux disease Heart failure Heart murmur History of obstructive sleep apnea Hyperlipidemia Hypertension Impaired vision Migraine Stented coronary artery , per nurse's notes. Physical Examination Vital Signs Vital Signs/Vital Measures 10/31/2020 23:42 EST Systolic Blood Pressure 232 mmHg HI Diastolic Blood Pressure 110 mmHg HI Temperature Source Skin Temperature Mode Fahrenheit Temperature, Fahrenheit 98 Deg F Clinical Temperature, C 36.7 Deg C Peripheral Pulse Rate 107 bpm HI Respiratory Rate 16 Breaths/Min Oxygen Saturation 97 % Oxygen Therapy Mode Room air . Measurements 10/31/2020 23:42 EST Height Source Stated Height Entry Format [place] Height/Length, RUSSIAN (ft) 5 ft Height/Length RUSSIAN 9 Inch CLINICALHEIGHT 175.26 cm [place] Body Weight 69.73 kg Weight Source, ED Critical estimated dosing weight Weight Entry Format [place] Weight [place] lb 197 lb CLINICALWEIGHT 89.55 kg Body Surface Area (BSA) 2.05 m2 Body Mass Index 29.2 kg/m2 HI . Oxygen Saturation 10/31/2020 23:42 EST Oxygen Saturation 97 % . General: Alert, no acute distress. Skin: Warm. Head: Normocephalic. Neck: Supple. Eye: Sclera: not icteric. Ears, nose, mouth and throat: Oral mucosa moist. Cardiovascular: Regular rate and rhythm, No murmur, Normal peripheral perfusion, No edema, Tachycardia. Respiratory: Breath sounds are equal, Respirations: Tachypneic, Breath sounds: Bilateral, diminished. Chest wall: No tenderness. Back: Nontender. Gastrointestinal: Soft, Nontender, Non distended, Normal bowel sounds. Neurological: No focal neurological deficit observed. Lymphatics: No lymphadenopathy. Psychiatric: Cooperative. Medical Decision Making Documents reviewed: Emergency department nurses' notes. Electrocardiogram: Time 11/01/2020 01:56:00, rate 81, normal sinus rhythm, No ST changes, no ectopy, normal GA & QRS intervals, EP Interp. Results review: Lab results : Lab Results 11/01/2020 0:01 EST Sodium Level 136 mmol/L Potassium Level 4.6 mmol/L Chloride Level 104 mmol/L Carbon Dioxide Level 24 mmol/L Anion Gap 13 Glucose Level 321 mg/dL HI Blood Urea Nitrogen 27 mg/dL HI Creatinine Level 1.80 mg/dL HI eGFR 46 mL/min/1.73m2 LOW eGFR NonAfrican 38 mL/min/1.73m2 LOW Bun/Creatinine 15.0 Calcium Level 9.5 mg/dL Protein Total 7.3 Gram/dL Albumin Level 3.9 Gram/dL Globulin 3.4 Gram/dL A/G Ratio 1.1 Bilirubin Total 0.6 mg/dL Alk Phos 109 Units/Liter AST 12 Units/Liter ALT 28 Units/Liter Troponin I Ultra <0.015 ng/mL ProBNP 3,897 pg/mL HI WBC 9.5 K/uL RBC 3.82 Million/uL LOW Hgb 11.6 g/dL LOW Hct 35.8 % LOW MCV 93.7 fL MCH 30.4 pg MCHC 32.4 Gram/dL Platelet Count 262 K/uL MPV 10.3 fL RDW 13.6 % Neut % 70.5 % Neut # 6.69 K/uL HI Lymph % 16.3 % LOW Lymph # 1.55 x10(3)/uL Jackson % 9.7 % HI Jackson # 0.92 K/uL Eos % 2.2 % Eos # 0.21 x10(3)/uL Baso % 0.6 % Baso # 0.06 x10(3)/uL Slide Review No IG# 0.07 x10(3)/uL HI IG% 0.70 % HI SARS-CoV-2 (COVID19 PCR) Negative . Chest X-Ray: Interpretation by Emergency Physician, pulmonary edema. Impression and Plan Diagnosis Acute exacerbation of CHF (congestive heart failure) - Discharge, Medical Plan Condition: Improved, Stable. Disposition: Discharged Admit/Transfer/Discharge: Discharge (Order): Start: 11/01/2020 1:58 EST, Discharge to: Home. Prescriptions: Prescription Service Desk Manager Pharmacy: bumetanide 1 mg oral tablet (Prescribe): 1 Tab, Oral, Daily, for 7 Day(s), 7 Tab, 0 Refill(s). Patient was given the following educational materials: Heart Failure Exacerbation. Follow up with: KATELYN MCKEON Within 2 to 3 days; MARIAM CHATMAN Within 2 to 3 days. Counseled: Patient, Regarding diagnosis, Regarding diagnostic results, Regarding treatment plan, Regarding prescription, Patient indicated understanding of instructions. Notes: Patient presented with shortness of breath. Has a history of coronary disease and CHF. He is not on Lasix. Found to have pulmonary vascular congestion without any hypoxia or respiratory distress. Patient significantly improved after blood pressure controlled with labetalol and diuresis in the ED with IV Bumex. Discharged home with close cardiology follow-up and prescription for Bumex daily x7 days. Given clear return precautions.. documented in this encounter Plan of Treatment Not on file documented as of this encounter Visit Diagnoses Not on filedocumented in this encounter Care Teams Steel Sampler Relationship Specialty Start Date End Date Marielos Amaral APRN [address] [address] PCP - General Nurse Practitioner 08/18/23 documented as of this encounter
--- OUTSIDE RECORDS SUMMARY | 2025-05-14 20:34 | XMS_ITS | Encounter Summary ---
Author Organization [employer] ([place], [place], [place], [place]) Address [address] [place] [address] Care Team Providers Care Armed Custom Protection Officer Name Role Phone Marielos Amaral APRN Primary Care Provider Encounter Details Date Type Department Care Team (Late st Contact Info) Description 02/07/2019 Transcribed Document [facility] [place] Medicine [address] [place] [address] ProviderHaroldo MD [address] [place] [address] Social History Tobacco Use Types Packs/Day Years Used Date Smoking Tobacco: Never Assessed Sex and Gender Information Value Date Recorded Sex Assigned at Not on file Legal Sex Male 3:45 PM CDT Gender Identity Not on file Sexual Orientation Not on file documented as of this encounter Miscellaneous Notes * Cerner Conversion Note - Haroldo ProviderMD - 02/07/2019 11:56 AM CDT UM Authorization Entered On: 02/07/2019 11:57 EDT Performed On: 02/07/2019 11:56 EDT by GEGE JUÁREZ RN Primary Insurance Authorization Authorization and Policy Numbers : Insurance 1 Health Plan: [employer]US H[employer] Policy Number: [id number] Authorization Number: PENDING IP Insurance Primary Name : [employer] Choice Authorization Status-Primary : Awaiting callback Authorized Service Begin Date-Primary : 02/05/2019 EDT Authorization Comments-Primary : setup case for IP on availity. faxed clinicals via [employer]. Historical Authorization Comments-Primary : Comment 1: setup on [employer] obs approved. (GEGE JUÁREZ RN 02/06/2019 08:52) GEGE JUÁREZ RN - 02/07/2019 11:56 EDT Electronically signed by Brittany [facility] Conversion Market Consultant Cerner at 01/24/2023 10:27 AM CDT documented in this encounter Plan of Treatment Not on file documented as of this encounter Visit Diagnoses Not on filedocumented in this encounter Care Teams Armed Custom Protection Officer Relationship Specialty Start Date End Date Marielos Amaral, RUBBER AND POUNDER [address] [id number] PCP - General Nurse Practitioner 08/18/23 documented as of this encounter
--- OUTSIDE RECORDS SUMMARY | 2025-05-14 20:34 | XMS_ITS | Encounter Summary ---
Author Organization [employer] ([place], [place], [place], [place]) Address [address] [place] [address] Care Team Providers Care Basketball Assembler Name Role Phone Marielos Amaral KAYE Primary Care Provider Encounter Details Date Type Department Care Team (Late st Contact Info) Description 02/06/2019 Transcribed Document [facility] [place] [address] [place] [address] ProviderHaroldo MD [address] [place] [address] Social History Tobacco Use Types Packs/Day Years Used Date Smoking Tobacco: Never Assessed Sex and Gender Information Value Date Recorded Sex Assigned at Not on file Legal Sex Male 3:45 PM CDT Gender Identity Not on file Sexual Orientation Not on file documented as of this encounter Miscellaneous Notes * Cerner Conversion Note - Haroldo ProviderMD - 02/06/2019 12:19 AM CDT Pain Assessment Entered On: 02/08/2019 0:16 EDT Performed On: 02/07/2019 21:46 EDT by Kemi Berger RN Intervention Information: acetaminophen Performed by Kemi Berger RN on 02/07/2019 20:46:00 EDT acetaminophen,650mg Oral,Pain (Mild 1-3) Pain Assessment Pain Assessment : Follow-up assessment Pain Scale Goal : 0 Pain Scale Used : FACES Kemi Berger RN - 02/08/2019 0:16 EDT Pain Scale Intensity : 0 Kemi Berger, RN - 02/08/2019 0:16 EDT Image 4 - Images currently included in the form version of this document have not been included in the text rendition version of the form. documented in this encounter Plan of Treatment Not on file documented as of this encounter Visit Diagnoses Not on filedocumented in this encounter Care Teams Basketball Assembler Relationship Specialty Start Date End Date Marielos Amaral, CLAY WASHER [address] [place] [address] PCP - General Nurse Practitioner 08/18/23 documented as of this encounter
--- OUTSIDE RECORDS SUMMARY | 2025-05-14 20:34 | XMS_ITS | Clinical Summary ---
Author Organization [facility] Address [address] [address] [place] [address] Phone Care Team Providers Care Chief Engineer Drilling And Recovery Name Role Phone Unavailable Unavailable Conditions or Problems No information available. Medications No information available. Medications Administered No information available. Allergies, Adverse Reactions, Alerts No information available. Results No information available. Plan of Care No information available. Procedures No information available. Vital Signs No information available. Immunizations No information available. Advance Directives No information available.
--- OUTSIDE RECORDS SUMMARY | 2025-05-14 20:34 | XMS_ITS | Encounter Summary ---
Author Organization [email or web address] ([place], [place], [place], [place]) Address [address] [place] [address] Care Team Providers Care Sandblasting Supervisor Name Role Phone Marielos Amaral KAYE Primary Care Provider Encounter Details Date Type Department Care Team (Late st Contact Info) Description 02/08/2019 Transcribed Document [facility] [place] Medicine [address] [place] [address] ProviderHaroldo MD [address] [place] [address] Social History Tobacco Use Types Packs/Day Years Used Date Smoking Tobacco: Never Assessed Sex and Gender Information Value Date Recorded Sex Assigned at Not on file Legal Sex Male 3:45 PM CDT Gender Identity Not on file Sexual Orientation Not on file documented as of this encounter Miscellaneous Notes * Cerner Conversion Note - Haroldo ProviderMD - 02/08/2019 5:00 AM CDT Chart Check - Review Order Profile Entered On: 02/08/2019 5:31 EDT Performed On: 02/08/2019 5:00 EDT by Kemi Berger RN Chart Check Powerplans Initiated/Discontinued as Appropriate : Yes All Active Orders Reviewed : Yes Kemi Berger RN - 02/08/2019 5:31 EDT Electronically signed by Brittany [facility] Conversion Marble Cleaner Cerner at 01/24/2023 10:20 AM CDT documented in this encounter Plan of Treatment Not on file documented as of this encounter Visit Diagnoses Not on filedocumented in this encounter Care Teams Sandblasting Supervisor Relationship Specialty Start Date End Date Rosette Amarale, ENDOSCOPY SUPPORT SPECIALIST [address] [place] [address] PCP - General Nurse Practitioner 08/18/23 documented as of this encounter
--- OUTSIDE RECORDS SUMMARY | 2025-05-14 20:34 | XMS_ITS | Encounter Summary ---
Author Organization [email or web address] ([place], [place], [place], [place]) Address [address] [place] [address] Care Team Providers Care Melter Supervisor Oxygen Furnace Name Role Phone Marielos Amaral KAYE Primary Care Provider Encounter Details Date Type Department Care Team (Late st Contact Info) Description 02/06/2019 Transcribed Document [facility] [place] [address] [place] [address] ProviderHaroldo MD [address] [place] [address] Social History Tobacco Use Types Packs/Day Years Used Date Smoking Tobacco: Never Assessed Sex and Gender Information Value Date Recorded Sex Assigned at Not on file Legal Sex Male 3:45 PM CDT Gender Identity Not on file Sexual Orientation Not on file documented as of this encounter Miscellaneous Notes * Cerner Conversion Note - Haroldo Warren MD - 02/06/2019 12:27 PM CDT Swallow Evaluation Entered On: 02/06/2019 12:31 EDT Performed On: 02/06/2019 12:27 EDT by KELLY CROUCH, BOTANY TEACHER General Information Visit Type, BOTANY TEACHER : Initial evaluation Patient Orders : Speech Language Pathology Swallow Evaluation and Treatment -111 Start: 02/06/19 12:27:00 EDT, Routine, For Swallow Eval and Treat - RODNEY KAUR MD Speech Language Pathology Evaluation and Treatment - Start: 02/06/19 0:17:00 EDT, Routine, For Speech Language Cognitive Eval and Treat -111 FIORELLA OWENS MD-INT Ordering Provider : RODNEY KAUR MD Admission Date : Admission Date/Time: 02/05/19 23:59:00 Medical Chart Reviewed, BOTANY TEACHER : Yes Personal Devices : Personal Devices No Devices Recorded Assistive Devices : Assistive Devices No Devices Recorded Active Diagnoses : 02/05/2019 00:00 Ataxia, unspecified 02/05/2019 00:00 Weakness Therapy Diagnosis, BOTANY TEACHER : oropharyngeal swallow seemingly within functional limits Previous Speech/Language Evaluations : N/A Previous Swallow Precautions : N/A Previous Cognitive Evaluations : N/A Diet/Intake Prior to Current Admission : Regular/thin Diet/Intake During Current Admission : Regular/thin Intubation Comment, BOTANY TEACHER : No intubation on this admit Vital Signs RTF : Vitals Temp BP Pulse RR SpO2 FIO2 Date Wt(kg) Wt(lb) 02/06 09:28 ---- 173/92 --- 20 99 --- 02/06 79.5 175 02/06 09:00 ---- ----- --- 23 97 --- 02/05 79.5 175 02/06 08:00 ---- 157/79 --- 24 96 --- 02/06 07:30 ---- 153/78 --- 22 97 --- 02/06 07:00 ---- 174/85 --- 22 98 --- 24 Hr Tmax: No Data Available 36 Hr Tmax: No Data Available Vital Signs are the last 5 in the past 48 hours. Weights display the last 5 within 7 days. Initial Wt: 02/05 79.5 kg 175 lb Respiratory Assessment Comment : Room air KELLY CROUCH SLP - 02/06/2019 12:27 EDT General Status Patient Received Status, BOTANY TEACHER : Sitting edge of bed Patient Left Status, BOTANY TEACHER : Sitting edge of bed KELLY CROUCH SLP - 02/06/2019 12:27 EDT Pain Assessment Pain Scaled Used : FACES Duration : 0 KELLY CROUCH SLP - 02/06/2019 12:27 EDT Image 1 - Images currently included in the form version of this document have not been included in the text rendition version of the form. Oral Mechanism Dysarthria : No Resonance Types : Appropriate Oral Mechanism for Daily Living : Intact BOTANY TEACHER Cough : Strong Facial Appearance: : Symmetrical Labial Appearance : Symmetrical Labial Function : All function intact Dental/Orthodontia : Teeth, own Condition of Dentition : Intact Lingual Appearance : Symmetrical Lingual Function : All function intact Soft Palate (Velum) Appearance : Symmetrical Soft Palate Function : Function intact Hard Palate Appearance/ Structure : Structure intact Mandible Appearance/Structure : Intact Mandibular Function : All function intact KELLY CROUCH SLP - 02/06/2019 12:27 EDT Bedside Swallow Swallow Outcome BS Swallow : Intact Head Control BS Swallow : Neutral head position Presentation Style BS Swallow : Self Swallow Position BS Swallow : Upright 90 degrees Trunk Control BS Swallow : Upright centered position Consistencies Trialed BS Swallow : Thin by cup, Thin by straw, Pureed, Regular solids KELLY CROUCH, RAMONA - 02/06/2019 12:27 EDT Swallow Impressions Impressions, BS Swallow : No evidence of dysphagia present Swallowing Outcome Measures : Functional Oral Intake Scale (FOIS) Functional Oral Intake Scale (FOIS) : Level VII Bedside Swallow Overall Impressions : Patient is a 68 year old male admitted with reduced senstation in right arm and leg; neuro work up pending. No overt communication deficits noted at bedside. No overt signs or symptoms of aspiration noted with thin, puree or solid. Patient completed 3 oz water test without difficulty. Oral phase was timely, no oral residue noted. Recommend regular diet and thin liquids, meds whole as able with thin. No further dysphagia services warranted, BOTANY TEACHER will sign off. KELLY CROUCH BOTANY TEACHER - 02/06/2019 12:27 EDT Swallow Recommendations Recommended Diet Type, SwRec : Regular Recommended Liquid Diet, SwRec : Thin Feeding Presentation Style, SwRec : No restrictions Swallow Position, SwRec : Upright 90 degrees Supervision Level w/Meals, SwRec : Independent, complete Recommended Med Present, SwRec : Whole, With thin liquid KELLY CROUCH BOTANY TEACHER - 02/06/2019 12:27 EDT Therapy Indication Assessment BOTANY TEACHER Indicated : No BOTANY TEACHER Not Indicated : At prior level of function, No skilled services indicated KELLY CROUCH BOTANY TEACHER - 02/06/2019 12:27 EDT Education Barriers To Learning : None evident Individuals Taught : Patient, Spouse Readiness to Learn : Cooperative Readiness to Learn : Explanation KELLY CROUCH SLP - 02/06/2019 12:27 EDT BOTANY TEACHER Education Assessment Grid 1 Diet Recommendation : Verbalizes understanding Evaluation Results : Verbalizes understanding KELLY CROUCH, BOTANY TEACHER - 02/06/2019 12:[address] [facility] Charges Evaluation Swallowing Function : 1 KELLY CROUCH, BOTANY TEACHER - 02/06/2019 12:27 EDT Electronically signed by [facility] Conversion X Ray Control Equipment Repairer Cerner at 01/24/2023 10:42 AM CDT documented in this encounter Plan of Treatment Not on file documented as of this encounter Visit Diagnoses Not on filedocumented in this encounter Care Teams Melter Supervisor Oxygen Furnace Relationship Specialty Start Date End Date Marielos Amaral, CUTTING TABLE OPERATOR FIRST [address] [place] [address] PCP - General Nurse Practitioner 08/18/23 documented as of this encounter
--- OUTSIDE RECORDS SUMMARY | 2025-05-14 20:34 | XMS_ITS | Encounter Summary ---
Author Organization [employer] ([place], [place], [place], [place]) Address [address] [place] [address] Care Team Providers Care Compound Filler Name Role Phone Marielos Amaral KAYE Primary Care Provider Encounter Details Date Type Department Care Team (Late st Contact Info) Description 02/08/2019 Transcribed Document [facility] Family Medicine [address] [place] [address] ProviderHaroldo MD [address] [place] [address] Social History Tobacco Use Types Packs/Day Years Used Date Smoking Tobacco: Never Assessed Sex and Gender Information Value Date Recorded Sex Assigned at Not on file Legal Sex Male 3:45 PM CDT Gender Identity Not on file Sexual Orientation Not on file documented as of this encounter Miscellaneous Notes * Cerner Conversion Note - Haroldo ProviderMD - 02/08/2019 11:45 AM CDT Initial Discharge Planning Entered On: 02/08/2019 11:50 EDT Performed On: 02/08/2019 11:45 EDT by GERALDINE BROWN, RN-Auto Care Center Manager Initial Assessment I Previously Documented Living Environment : No qualifying data available. Living Situation : Home Patient Lives With : Spouse Is the Patient a Caregiver at Home? : No Emergency Contact #1 : Enriqueta Toy Emergency Contact #1 Emergency Contact #1 Relationship : Emergency Contact #2 : Carla Chaudhary Emergency Contact #2 Emergency Contact #2 Relationship : daughter Enter Doctors Name : Axel Hamlin Does Patient have PCP Listed? : Yes Medical Durable Power of [employer] Service Captain Name : No Legal Guardian : No Is Guardianship Needed : No GERALDINE BROWN RN-Auto Care Center Manager - 02/08/2019 11:45 EDT Initial Assessment II Sensory and Motor Deficits : None Current Home Treatments and Equipment : Bedside commode, Cane, CPAP, Shower chair, Walker Does the Patient have a Floor to SNF Benefit? : Yes GERALDINE BROWN RN-Auto Care Center Manager - 02/08/2019 11:45 EDT Discharge Needs I Anticipated Discharge Date : 02/09/2019 EDT Anticipated Discharge To, CM : Other: outpatient physical therapy at [facility] Current Home Treatment/Equipment : Current Home Treatment/Equipment No qualifying data available. Post Acute/Home Treatments : None GERALDINE BROWN RN-Auto Care Center Manager - 02/08/2019 11:45 EDT Discharge Needs II Professional Skilled Services : Professional Skilled Services No qualifying data available. Services and Community Resources : Physical Therapy Needs Assistance with Transportation : No Discharge Options Discussed with Patient : Outpatient services, Short term rehabilitation GERALDINE BROWN RN-Auto Care Center Manager - 02/08/2019 11:45 EDT Narrative Note Narrative Note : Met with pt and his . Pt states that he lives with his . He states that he has lots of equipement at home but does not use it currently. He states that he has a CPAP but is not currently wearing it due to a place on his head. He states that the [employer] is trying different masks to find one that will work. Discussed discharge plan with pt and his . Pt and request outpatient PT at [facility] PT in [place]. Pt's states that is where she currently goes and she would like pt to go as well. She wants to schedule pt's first appointment. Pt and deny any other discharge needs at this time. GERALDINE BROWN RN-Auto Care Center Manager - 02/08/2019 11:45 EDT documented in this encounter Plan of Treatment Not on file documented as of this encounter Visit Diagnoses Not on filedocumented in this encounter Care Teams Compound Filler Relationship Specialty Start Date End Date Marielos Amaral APRN [address] [address] PCP - General Nurse Practitioner 08/18/23 documented as of this encounter
--- OUTSIDE RECORDS SUMMARY | 2025-05-14 20:34 | XMS_ITS | Encounter Summary ---
Author Organization [employer] ([place], [place], [place], [place]) Address [address] [place] [address] Care Team Providers Care Molder Name Role Phone Munir Brii RESTREPO Primary Care Provider Encounter Details Date Type Department Care Team (Late st Contact Info) Description 04/26/2022 Transcribed Document [facility] [place] [address] [place] [address] ProviderHaroldo MD [address] [place] [address] Social History Tobacco Use Types [...] Do you speak a language other than [place] at [facility]? Yes 10/30/2024 Do you want [...] Conversion Note - Historical Provider, - 04/26/2022 9:42 AM CDT Patient: DEION ANTOINE Age: 71 years Sex: Male : 1950 Associated Diagnoses: None Author: SEEMA PAK, Results Review Admission Date: Admit Date 04/22/2022 12:30 Discharge Date: 04/26/2022 Discharge Information discharge to home with home health. Physical Examination VS/Measurements Vitals Signs (last 24 hrs) Last Charted Minimum Maximum Temp 97.7 (APR 26 02:35) 97.7 (APR 26 02:35) 98.3 (APR 25 10:05) Apical HR 72 (APR 26 08:49) L 7 (APR 26 08:49) 75 (APR 25 10:05) Mon HR 68 (APR 26 02:35) 66 (APR 25 17:20) 73 (APR 25 14:40) Resp Rate 16 (APR 26 02:35) 16 (APR 25 14:40) 18 (APR 25 10:00) SBP 129 (APR 26 02:35) 103 (APR 25 10:05) H 165 (APR 25 21:40) DBP L 57 (APR 26 02:35) L 57 (APR 26 02:35) 81 (APR 25 17:20) MAP 90 (APR 26 02:35) 74 (APR 25 10:05) 122 (APR 25 17:20) SpO2 99 (APR 26 02:35) 98 (APR 25 10:05) 99 (APR 26 02:35) patient seen by me on 04/26, he is awake, alert and pleasant, at bedside. heart RRR, lungs CTA, abd soft, no le edema. Hospital Course Significant labs/imaging: No Radiology Results Found CBC Results (Current Encounter/Past 24 Hours) WBC 4.9 K/uL 04/26/2022 07:56 Hct 26.9 % LOW 04/26/2022 07:56 Hgb 9.0 g/dL LOW 04/26/2022 07:56 Platelet Count 208 K/uL 04/26/2022 07:56 CMP Results (Current Encounter/Past 24 Hours) Creatinine Level 2.50 mg/dL VA 04/26/2022 07:49 eGFR 31 mL/min/1.73m2 LOW 04/26/2022 07:49 Bun/Creatinine 14.8 04/26/2022 07:49 eGFR NonAfrican 26 mL/min/1.73m2 LOW 04/26/2022 07:49 Sodium Level 134 mmol/L LOW 04/26/2022 07:49 Potassium Level 4.9 mmol/L 04/26/2022 07:49 Chloride Level 106 mmol/L 04/26/2022 07:49 Carbon Dioxide Level 22 mmol/L 04/26/2022 07:49 Anion Gap 11 04/26/2022 07:49 Blood Urea Nitrogen 37 mg/dL VA 04/26/2022 07:49 Glucose Level 180 mg/dL VA 04/26/2022 07:49 Calcium Level 8.9 mg/dL 04/26/2022 07:49 Magnesium Level 1.7 mg/dL 04/25/2022 07:52 Consultants: nephrology associates- dr cristobal Procedures: none Problem List: 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 -Renal vs prerenal -Hold all nephrotoxic meds including Bumex, Aldactone and lisinopril -Creatinine 7.8----> 3.3-- > 2.5 on day of dc. -Nephroloy consult appreciated, ok to dc and follow up in 2 weeks. Urinary tract infection. Urine culture showed mixed growth, was on rocephin x 4 days will not DC on antibiotics. Diabetes mellitus with hyperglycemia Uncontrolled. Hemoglobin A1c 12.3. will dc on lantus daily. Hyponatremia. Likely pseudohyponatremia. Monitor closely. History of multiple CVAs with residual right-sided weakness. CT scan of brain without IV contrast noted. Physical therapy evaluation. Dilated cardiomyopathy. Last ECHO note History of coronary artery disease status post CABG. Hold Bumex, Aldactone and DEVI inhibitor due to acute renal failure. Resume hydralazine Continue telemetry monitoring. Atrial fibrillation. Currently normal sinus rhythm. Telemetry monitoring. Resume Lopressor Continue Eliquis. Hypothyroidism. tsh low, levothyroxine dose decreased here. Urinary retention. History of benign prostate hypertrophy. Resume Flomax hospital course: Mr. Antoine is a 71 year old male with history of stroke, afib on eliquis, hypothyroidism, CVA with right sided weakness who presented to [facility] on 04/22 for evaluation of weakness. In ER he was hypotensive with creatinine of 7.8 and BUN of 94 and sodium of 124. CT abd showed no acute process. He was started on aggressive IVF and admitted and was seen by nephrology. His home lisinopril, spironolactone and bumex were held. His renal function slowly improved. His a1c here was 12.3 and he was started on lantus. He completed 4 days of rocephin for uti here, his urine culture showed mixed growth < 100,000 CFU. He will not be discharged on antibiotics. His TSH was low here, his levothyroxine was decreased to 75 mcg. On 04/26 his creatinine improved to 2.5 and he was felt stable for discharge with appointment with nephrology in 2 weeks. He is being discharged on lantus. Discharge Follow Up BRII AMARAL - Within 1 week PARAM CRISTOBAL - Within 2 weeks Discharge Activity Activity as tolerated Discharge Plan Discharge Summary Plan Discharge Status: improved. Discharge instructions given: to patient. Prescriptions: Home Medications (12) Active amiodarone 200 mg oral tablet 200 mg = 1 Tab, Oral, Daily atorvastatin 40 mg oral tablet 40 mg = 1 Tab, Oral, At Bedtime Basaglar KwikPen 100 units/mL subcutaneous solution 15 Units, SubCutaneous, Once a day (at bedtime) Eliquis 5 mg oral tablet 5 mg = 1 Tab, Oral, BID ergocalciferol 1.25 mg (50,000 intl units) oral capsule 50,000 Int Units = 1 Cap, Oral, Weekly Flomax 0.4 mg oral capsule 0.4 mg = 1 Cap, Oral, Daily hydrALAZINE 50 mg oral tablet 50 mg = 1 Tab, Oral, BID Januvia 25 mg oral tablet 25 mg = 1 Tab, Oral, Daily levothyroxine 75 mcg (0.075 mg) oral tablet 75 mcg = 1 Tab, Oral, Daily Metoprolol Succinate ER 50 mg oral tablet, extended release 50 mg = 1 Tab, Oral, Daily omeprazole 40 mg oral delayed release capsule 40 mg = 1 Cap, Oral, Daily Vitamin B12 1000 mcg oral tablet 1,000 mcg = 1 Tab, Oral, Daily . Time spent on discharge: 35 min Seema Betancourt Hospitalist documented in this encounter Plan of Treatment Not on file documented as of this encounter Visit Diagnoses Not on filedocumented in this encounter Care Teams Molder Relationship Specialty Start Date End Date Brii Amaral, HATCHERY MAN [address] [place] [address] PCP - General Nurse Practitioner 08/18/23 documented as of this encounter
--- OUTSIDE RECORDS SUMMARY | 2025-05-14 20:34 | XMS_ITS | Encounter Summary ---
Author Organization [employer] ([place], [place], [place], [place]) Address [address] [place] [address] Care Team Providers Care Cryptanalyst Name Role Phone Marielos Amaral APRN Primary Care Provider Encounter Details Date Type Department Care Team (Late st Contact Info) Description 02/07/2019 Transcribed Document [facility] Radiology [address] [id number] Fidencio Tolliver MD [address] [place] [address] [address] [place] [address] Social History Tobacco Use Types Packs/Day Years Used Date Smoking Tobacco: Never Assessed Sex and Gender Information Value Date Recorded Sex Assigned at Not on file Legal Sex Male 3:45 PM CDT Gender Identity Not on file Sexual Orientation Not on file documented as of this encounter Miscellaneous Notes * Cerner Conversion Note - Fidencio Tolliver MD - 02/07/2019 11:13 AM EDT Patient: ZACKARY ANTOINE Age: 68 years Sex: Male : 1950 Associated Diagnoses: None Author: FIDENCIO TOLLIVER MD-INT Subjective PCP: Dr. Axel Hamlin DOA: 02/05/2019 DOD: HPI: Admitted with right sided weakness and uncontrolled movements with with a known history of coronary artery disease and multiple risk factors. CODE STATUS: Full code CONSULTS: [facility] WORKUP / PROCEDURES: CT Head WO (02/05/2019 [...] approximately 50% stenosis of theproximal basilar artery. associate broker show mild stenosis proximally. IMPRESSION: 1. 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 Anterior circulation intact.3. Mild bilateral LINE CONSTRUCTION SUPERINTENDENT disease. This study was performed using dose [...] gait disturbances. Neurology and cardiology input noted. Health Status Allergies: Allergic Reactions (Selected) Severity Not Documented Amoxicillin- No reactions were documented. Mucinex- No reactions were documented. Current medications: (Selected) Inpatient Medications Ordered Colace: 100 mg, Oral, BID Eliquis: 5 mg, Oral, [id number] Flomax: 0.4 mg, Oral, Daily MiraLax: 17 [...] 24 hrs) Last Charted Minimum Maximum Temp 97.9 (FEBRUARY 07 09:00) 97.9 (FEBRUARY 07 09:00) 98 (FEBRUARY 06 22:05) Apical HR 77 (FEBRUARY 07 09:37) 77 (FEBRUARY 07 09:37) 84 (FEBRUARY 06 12:27) Mon HR 77 (FEBRUARY 07 09:00) 62 (FEBRUARY 07 03:00) 89 (FEBRUARY 06 15:11) Resp Rate 16 (FEBRUARY 07 06:11) 14 (FEBRUARY 06 15:11) 18 (FEBRUARY 06 19:59) SBP H 156 (FEBRUARY 07 09:00) 129 (FEBRUARY 07 03:00) H 176 (FEBRUARY 06 12:28) DBP 78 (FEBRUARY 07 09:00) 62 (FEBRUARY 07 03:00) H 99 (FEBRUARY 06 12:28) MAP 111 (FEBRUARY 07 09:00) 78 (FEBRUARY 07 03:00) 140 (FEBRUARY 06 12:28) SpO2 98 (FEBRUARY 07 09:00) 97 (FEBRUARY 06 15:11) 98 (FEBRUARY 06 19:59) General: Alert and oriented, No acute distress. Eye: Normal conjunctiva. HENT: Oral mucosa is moist. Respiratory: Lungs are clear to auscultation, Respirations are non-labored. Cardiovascular: Normal rate, Regular rhythm. Gastrointestinal: Soft, Non-tender, Normal bowel sounds. Musculoskeletal: Normal range of motion. Integumentary: Warm. Neurologic: Alert, Oriented, Right upper extremity numbness and weakness. Psychiatric: Cooperative. Results Review Radiology Results (Last 48 hours) [id number] -- 02/05/2019 23:59 CT Head WO (02/05/2019 20:29) Result: STUDY: [...] approximately 50% stenosis of theproximal basilar artery. associate broker show mild stenosis proximally. IMPRESSION: 1. 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 Anterior circulation intact.3. Mild bilateral LINE CONSTRUCTION SUPERINTENDENT disease. This study was performed using dose [...] strip.2. No hemorrhage.3. Advanced chronic microvascular changes. FEBRUARY 07 06:59 137 103 13 / H 140 3.7 28 1.10 \ FEBRUARY 07 06:59 \ 14.2 / 8.5 281 / 41.9 \ Impression and Plan Assessment and Plan: Diagnosis. 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 Paroxysmal atrial fibrillation currently controlled rate in sinus rhythm. Coronary artery disease with this history of CABG and previous coronary stents Type 2 diabetes Essential hypertension Hyperlipidemia Hypothyroid BPH / migraine PLAN Patient is placed on oral anticoagulation as per cardiology and neurology recommendations. Monitor blood glucose, continue home medicines and covered with sliding scale insulin. Monitor labs and Follow electrolytes and replace as needed. PT OT initiated. DC planning discussed with patient, he is looking for possible rehabilitation placement will consult clinical case manager. Follow with neurology and cardiology recommendations. documented in this encounter Plan of Treatment Not on file documented as of this encounter Visit Diagnoses Not on filedocumented in this encounter Care Teams Cryptanalyst Relationship Specialty Start Date End Date Marielos Amaral, BAR TACKER [address] [address] PCP - General Nurse Practitioner 08/18/23 documented as of this encounter
--- OUTSIDE RECORDS SUMMARY | 2025-05-14 20:34 | XMS_ITS | Encounter Summary ---
Author Organization [employer] ([place], [place], [place], [place]) Address [address] [place] [address] Care Team Providers Care Instrument Tester Name Role Phone Marielos Amaral KAYE Primary Care Provider Encounter Details Date Type Department Care Team (Late st Contact Info) Description 12/12/2020 Transcribed Document [facility] Family Medicine [facility] [place] [address] ProviderHaroldo MD [address] [place], [place] [address] Social History Tobacco Use Types Packs/Day Years Used Date Smoking Tobacco: Never Assessed Sex and Gender Information Value Date Recorded Sex Assigned at Not on file Legal Sex Male 3:45 PM CDT Gender Identity Not on file Sexual Orientation Not on file documented as of this encounter Miscellaneous Notes * Cerner Conversion Note - Historical ProviderMD - 12/12/2020 4:42 PM AUTOMOTIVE PRODUCT SPECIALIST Nursing Discharge Summary Entered On: 12/12/2020 16:43 EST Performed On: 12/12/2020 16:42 EST by Marielle Ward RN Discharge Documentation Discharge Date/Time : 12/12/2020 17:07 EST Transporter Signature : Marielle Ward, RN Marielle Ward, LUIS - 12/12/2020 17:10 EST Patient Disposition, General : Discharge Discharge To : Home with ambulatory/outpatient follow-up Mode Of Departure, General Discharge : Private vehicle Accompanied By, Discharge : Daughter IV Discontinued : Yes Personal Belongings With Patient : Yes Pt's Own Supply of Medications Returned : No patient supply of medications to return Discharge Instructions Reviewed With, Opportunity For Questions Given : Patient, Daughter Patient Education Completed : Yes Teaching Method : Explanation, Printed materials Teaching Evaluation : Returns demonstration, Verbalizes understanding Marielle Ward, RN - 12/12/2020 16:42 EST Electronically signed by [facility] Conversion Supervisor Pastry Cerner at 01/24/2023 10:20 AM CDT documented in this encounter Plan of Treatment Not on file documented as of this encounter Visit Diagnoses Not on filedocumented in this encounter Care Teams Instrument Tester Relationship Specialty Start Date End Date Marielos Amaral, STOCK CLIPPER [address] [place] [address] PCP - General Nurse Practitioner 08/18/23 documented as of this encounter
--- OUTSIDE RECORDS SUMMARY | 2025-05-14 20:34 | XMS_ITS | Encounter Summary ---
Author Organization [employer] ([place], [place], [place], [place]) Address [address] [place] [address] Care Team Providers Care Hog Tender Name Role Phone Marielos Amaral KAYE Primary Care Provider Encounter Details Date Type Department Care Team (Late st Contact Info) Description 10/31/2020 Transcribed Document [facility] [place] Family Medicine [address] [place] [address] ProviderHaroldo MD [address], [place] [id number] Social History Tobacco Use Types Packs/Day Years Used Date Smoking Tobacco: Never Assessed Sex and Gender Information Value Date Recorded Sex Assigned at Not on file Legal Sex Male 3:45 PM CDT Gender Identity Not on file Sexual Orientation Not on file documented as of this encounter Miscellaneous Notes * Cerner Conversion Note - Historical ProviderMD - 10/31/2020 11:42 PM HOISTING PILE DRIVING ENGINEER ED Triage Entered On: 10/31/2020 23:49 EST Performed On: 10/31/2020 23:42 EST by Lina John RN ED Triage Across the Room Chief Complaint : pt request delay of triage to use the bathroom NAD noted, ambulatory to BR. reports for 1 wk when laying down develops upper bilat CP with SOA. Triage Date/Time : 10/31/2020 23:44 EST Lina John RN - 10/31/2020 23:44 EST DCP GENERIC CODE Tracking Acuity : 3 - Urgent Tracking Group : [facility] ED Lina John RN - 10/31/2020 23:44 EST Mode of Arrival : Ambulatory Transported to ED by : Private vehicle To Room Via : Ambulate Accompanied By : Unaccompanied ED Vital Signs : Document Height & Weight : Document ED Allergies : Document ED Reason for Visit : Document Tetanus Immunization : Greater than 5 years Sand Conditioner Needed : No Lina John RN - 10/31/2020 23:44 EST Infectious Disease History Has the patient ever been tested for COVID-19? : Yes, Patient stated results Negative Date of COVID-19 test known? : No Does patient have symptoms of COVID-19? : No COVID19 Screening : No Experiencing Infectious Disease Symptoms : No symptoms Physical contact outside [place] in the last 30 days : No Infectious Disease History : Chicken pox/Shingles, Influenza, Measles, Mumps, Rubella Tuberculosis Symptoms : None Lina John RN - 10/31/2020 23:44 EST Vital Signs ED Temperature Source : Skin Temperature Mode : Fahrenheit Temperature, Fahrenheit : 98 Deg F ED Pain : Yes Clinical Temperature, C : 36.7 Deg C Oxygen Therapy Mode : Room air Peripheral Pulse Rate : 107 bpm (HI) Respiratory Rate : 16 Breaths/Min Systolic Blood Pressure : 232 mmHg (HI) Diastolic Blood Pressure : 110 mmHg (HI) Oxygen Saturation : 97 % Lina John RN - 10/31/2020 23:44 EST Allergy (As Of: 10/31/2020 23:49:04 EST) Allergies (Active) amoxicillin Estimated Onset Date: Unspecified ; Created By: RAVEN REILLY RN; Reaction Status: Active ; Category: Drug ; Substance: amoxicillin ; Type: Allergy ; Updated By: RAVEN REILLY RN; Reviewed Date: 10/31/2020 23:45 EST Mucinex Estimated Onset Date: Unspecified ; Created By: RAVEN REILLY RN; Reaction Status: Active ; Category: Drug ; Substance: Mucinex ; Type: Allergy ; Updated By: RAVEN REILLY RN; Reviewed Date: 10/31/2020 23:45 EST Diagnosis Control ED (As Of: 10/31/2020 23:49:04 EST) Problems(Active) Acute cerebrovascular accident (CVA) (SNOMED CT :024389201 ) Name of Problem: Acute cerebrovascular accident (CVA) ; Recorder: Roxana Brady RN; Confirmation: Confirmed ; Classification: Medical ; Code: [id number] ; Contributor System: PowerChart ; Last Updated: 04/12/2020 7:03 EDT ; Life Cycle Date: 04/12/2020 ; Life Cycle Status: Active ; Vocabulary: SNOMED CT Angina (SNOMED CT :883712098 ) Name of Problem: Angina ; Recorder: RAVEN REILLY RN; Confirmation: Confirmed ; Classification: Patient Stated ; Code: [id number] ; Contributor System: PowerChart ; Last Updated: 07/20/2014 9:33 EDT ; Life Cycle Date: 07/20/2014 ; Life Cycle Status: Active ; Vocabulary: SNOMED CT Coronary artery disease (SNOMED CT :0900818205 ) Name of Problem: Coronary artery disease ; Recorder: RAVEN REILLY RN; Confirmation: Confirmed ; Classification: Patient Stated ; Code: [id number] ; Contributor System: PowerChart ; Last Updated: 07/20/2014 9:33 EDT ; Life Cycle Date: 07/20/2014 ; Life Cycle Status: Active ; Vocabulary: SNOMED CT Diabetes mellitus type II (SNOMED CT :31133052 ) Name of Problem: Diabetes mellitus type II ; Recorder: RAVEN REILLY RN; Confirmation: Confirmed ; Classification: Patient Stated ; Code: [id number] ; Contributor System: PowerChart ; Last Updated: 07/20/2014 9:35 EDT ; Life Cycle Date: 07/20/2014 ; Life Cycle Status: Active ; Vocabulary: SNOMED CT Enlarged prostate (SNOMED CT :448556453 ) Name of Problem: Enlarged prostate ; Recorder: RAVEN REILLY RN; Confirmation: Confirmed ; Classification: Patient Stated ; Code: 896008140 ; Contributor System: PowerChart ; Last Updated: 07/20/2014 9:34 EDT ; Life Cycle Date: 07/20/2014 ; Life Cycle Status: Active ; Vocabulary: SNOMED CT GERD - Gastro-esophageal reflux disease (SNOMED CT :7106835682 ) Name of Problem: GERD - Gastro-esophageal reflux disease ; Recorder: RAVEN REILLY RN; Confirmation: Confirmed ; Classification: Patient Stated ; Code: [id number] ; Contributor System: PowerChart ; Last Updated: 07/20/2014 9:34 EDT ; Life Cycle Date: 07/20/2014 ; Life Cycle Status: Active ; Vocabulary: SNOMED CT Heart failure (SNOMED CT :907633224 ) Name of Problem: Heart failure ; Recorder: RAVEN REILLY RN; Confirmation: Confirmed ; Classification: Patient Stated ; Code: 171916770 ; Contributor System: SHARKMARXChart ; Last Updated: 07/20/2014 9:33 EDT ; Life Cycle Date: 07/20/2014 ; Life Cycle Status: Active ; Vocabulary: SNOMED CT Heart murmur (SNOMED CT :353995156 ) Name of Problem: Heart murmur ; Recorder: RAVEN REILLY RN; Confirmation: Confirmed ; Classification: Patient Stated ; Code: 268670431 ; Contributor System: PowerChart ; Last Updated: 07/20/2014 9:33 EDT ; Life Cycle Date: 07/20/2014 ; Life Cycle Status: Active ; Vocabulary: SNOMED CT History of obstructive sleep apnea (IMO :71232161 ) Name of Problem: History of obstructive sleep apnea ; Recorder: SYSTEM, SYSTEM; Confirmation: Confirmed ; Classification: Medical ; Code: 77871356 ; Last Updated: 01/20/2019 12:39 EDT ; Life Cycle Date: 01/20/2019 ; Life Cycle Status: Active ; Vocabulary: IMO Hyperlipidemia (SNOMED CT :83102233 ) Name of Problem: Hyperlipidemia ; Recorder: RAVEN REILLY RN; Confirmation: Confirmed ; Classification: Patient Stated ; Code: 86355682 ; Contributor System: PowerChart ; Last Updated: 09/03/2017 13:38 EST ; Life Cycle Date: 07/20/2014 ; Life Cycle Status: Active ; Vocabulary: SNOMED CT Hypertension (SNOMED CT :00360751 ) Name of Problem: Hypertension ; Recorder: RAVEN REILLY RN; Confirmation: Confirmed ; Classification: Patient Stated ; Code: 79508796 ; Contributor System: PowerChart ; Last Updated: 07/20/2014 9:33 EDT ; Life Cycle Date: 07/20/2014 ; Life Cycle Status: Active ; Vocabulary: SNOMED CT Impaired vision (SNOMED CT :21831185 ) Name of Problem: Impaired vision ; Recorder: RAVEN REILLY RN; Confirmation: Confirmed ; Classification: Patient Stated ; Code: 31116763 ; Contributor System: PowerChart ; Last Updated: 07/20/2014 9:32 EDT ; Life Cycle Date: 07/20/2014 ; Life Cycle Status: Active ; Vocabulary: SNOMED CT Migraine (SNOMED CT :02658745 ) Name of Problem: Migraine ; Recorder: RAVEN REILLY RN; Confirmation: Confirmed ; Classification: Patient Stated ; Code: 11026537 ; Contributor System: PowerChart ; Last Updated: 07/20/2014 9:35 EDT ; Life Cycle Date: 07/20/2014 ; Life Cycle Status: Active ; Vocabulary: SNOMED CT Stented coronary artery (SNOMED CT :0876613165 ) Name of Problem: Stented coronary artery ; Recorder: RAVEN REILLY RN; Confirmation: Confirmed ; Classification: Patient Stated ; Code: 0638675687 ; Contributor System: SHARKMARXChart ; Last Updated: 07/20/2014 9:33 EDT ; Life Cycle Date: 07/20/2014 ; Life Cycle Status: Active ; Vocabulary: SNOMED CT Diagnoses(Active) SOA - Shortness of Air Date: 10/31/2020 ; Diagnosis Type: Reason For Visit ; Confirmation: Complaint of ; Clinical Dx: SOA - Shortness of Air ; Classification: Medical ; Clinical Service: Non-Specified ; Code: PNED ; Probability: 0 ; Diagnosis Code: [id number] ED Height and Weight Height Source : Stated Height Entry Format : [place] Height, Feet : 5 ft(Converted to: 152 cm, 60 Inch) Height, Inches : 9 Inch(Converted to: 0 ft 9 Inch, 22.86 cm) Clinical Height : 175.26 cm Weight Source, ED : Critical estimated dosing weight Weight Entry Format : [place] Weight, Pounds : 197 lb Clinical Dosing Weight : 89.55 kg Body Surface Area (BSA) : 2.05 m2 Body Mass Index : 29.2 kg/m2 (HI) [place] Body Weight (IBW) : 69.73 kg Lina John RN - 10/31/2020 23:44 EST Pain Assessment Pain Assessment : Initial assessment Pain Scale Used : 0-10 Scale Lina John RN - 10/31/2020 23:44 EST Pain Scale Intensity : 2 Lina John RN - 10/31/2020 23:44 EST Image 4 - Images currently included in the form version of this document have not been included in the text rendition version of the form. documented in this encounter Plan of Treatment Not on file documented as of this encounter Visit Diagnoses Not on filedocumented in this encounter Care Teams Hog Tender Relationship Specialty Start Date End Date Marielos Amaral, CSW [address] [place] [address] PCP - General Nurse Practitioner 08/18/23 documented as of this encounter
--- OUTSIDE RECORDS SUMMARY | 2025-05-14 20:34 | XMS_ITS | Encounter Summary ---
Author Organization [employer] ([place], [place], [place], [place]) Address [address] [place] [address] Care Team Providers Care Ointment Mill Tender Name Role Phone Munir Marielos RESTREPO Primary Care Provider Encounter Details Date Type Department Care Team (Late st Contact Info) Description 04/26/2022 Transcribed Document [facility] [place] Family Medicine [address] [place] [address] ProviderHaroldo MD [address] [place] [address] Social History Tobacco Use [...] speak a language other than [place] at [facility]? Yes 10/30/2024 Do you [...] Conversion Note - Historical Provider, - 04/26/2022 9:10 AM CDT Patient: ZACKARY ANTOINE Age: 71 [...] Other (See Comment) Eliquis: 2.5 mg, Oral, [id number] Flomax: 0.4 mg, Oral, Daily Metoprolol Succinate ER: 50 mg, Oral, Daily Normal Saline 1,000 mL: 100 mL/Hr, IntraVENous Rocephin: 1 Gram, 100 mL/Hr, IV Piggyback, [id number] Tylenol: 650 mg, Oral, Q4H, PRN: Pain [...] A:, SubCutaneous, AC and at Bedtime levothyroxine: 75 mcg, Oral, Daily pantoprazole: 40 mg, Oral, [...] Oral, Daily, 180 Tab, 0 Refill(s), Medications (23) Active Scheduled: (13) amiodarone 200 mg tab 200 mg 1 Tab, Oral, Daily apixaban 2.5 mg tab 2.5 mg 1 Tab, Oral, [id number] atorvastatin 40 mg tab 40 mg 1 Tab, Oral, At Bedtime cefTRIAXone 1 Gram, IV Piggyback, [id number] cholecalciferol 1,000 unit tab 1,000 Units 1 Tab, Oral, Daily cyanocobalamin 1,000 mcg tab 1,000 mcg 1 Tab, Oral, Daily hydrALAZINE 50 mg tab 50 mg 1 Tab, Oral, BID insulin glargine 1 unit/0.01 mL inj 15 Units 0.15 mL, SubCutaneous, Daily insulin lispro 1 unit/0.01 mL inj Scale A:, SubCutaneous, AC and at Bedtime levothyroxine 75 mcg tab 75 mcg 1 Tab, Oral, Daily metoprolol succinate [...] list: Medical Atrial fibrillation / SNOMED CT 87020040 / Confirmed CAD - Coronary artery disease / SNOMED CT 7216320359 / Confirmed Cardiomyopathy / SNOMED CT 959520589 / Confirmed Acute cerebrovascular accident (CVA) / SNOMED CT 125389315 / Confirmed History of obstructive sleep apnea / IMO 35717060 / Confirmed HLD - Hyperlipidemia / SNOMED CT 609789316 / Confirmed HTN - Hypertension / SNOMED CT 3134120512 / Confirmed Type 2 diabetes mellitus / SNOMED CT 157526986 / Confirmed, Active Problems (20) Acute cerebrovascular [...] L 57 (APR 26 02:35) 81 (APR 25:20) MAP 90 (APR 26 02:35) 74 (APR 25 10:05) 122 (APR 25:20) SpO2 99 (APR 26 02:35) 98 (APR 25 10:05) 99 (APR 26 02:35) General: Alert and oriented, No acute distress. Eye: Extraocular movements are intact, Normal conjunctiva. HENT: Normocephalic, Normal hearing. Neck: Supple, No jugular venous distention, No thyromegaly. Respiratory: Lungs are clear to auscultation, Respirations are non-labored, Symmetrical chest wall expansion. Cardiovascular: Normal rate, No edema. Gastrointestinal: Soft, Non-tender, Non-distended. Integumentary: Warm, Dry, Shaw. Neurologic: Alert, Oriented, No focal deficits. Psychiatric: Cooperative, Appropriate mood & affect. Review / Management Results review: Labs (Last four charted values) WBC 4.9 (APR 26) 6.1 (APR 25) 5.2 (APR 23) 5.1 (APR 23) HB L 9.0 (APR 26) L 9.2 (APR 25) L 9.6 (APR 23) L 9.6 (APR 23) HCT L 26.9 (APR 26) L 27.6 (APR 25) L 28.0 (APR 23) L 27.9 (APR 23) Plt 208 (APR 26) 236 (APR 25) 239 (APR 23) 230 (APR 23) Na L 134 (APR 26) L 134 (APR 25) L 134 (APR 24) L 129 (APR 23) K 4.9 (APR 26) H 5.4 (APR 25) 5.1 (APR 24) 4.4 (APR 23) Cl 106 (APR 26) 106 (APR 25) 104 (APR 24) L 98 (APR 23) CO2 22 (APR 26) 23 (APR 25) 23 (APR 24) 21 (APR 23) BUN H 37 (APR 26) H 50 (APR 25) H 72 (APR 24) C 91 (APR 23) Cr H 2.50 (APR 26) H 3.30 (APR 25) H 4.70 (APR 24) H 7.40 (APR 23) Glu R H 180 (APR 26) H 174 (APR 25) H 203 (APR 24) H 244 (APR 23) Ca 8.9 (APR 26) 8.9 (APR 25) 9.0 (APR 24) 8.4 (APR 23) AST 28 (APR 22) ALT 56 (APR 22) ALK P 82 (APR 22) T Bili 0.6 (APR 22) PTN 7.3 (APR 22) ALB L 3.0 (APR 24) 3.4 (APR 22) . APR 26 07:12 L 134 106 H 37 / H 180 4.9 22 H 2.50 \ APR 26 07:12 \ L 9.0 / 4.9 208 / L 26.9 \ FINDINGS: Limited images of the liver [...] 6- HTN 7- Generalized weakness. Plan: - Low K diet. - Increase fluid intake. UOP excellent. - Hold lisinopril, and Aldactone for hyperkalemia/K above 4.8. - Monitor I/O strictly - Avoid nephrotoxic agents. - renal diet. - No emergent need of LABORATORY ASST. Will follow. Can be discharged today. Follow up with [facility] in 2 weeks @ [facility] with renal function panel and UA. Electronically signed by Brittany, [facility] Conversion [employer] Professor Cerner at 01/24/2023 10:39 AM CDT documented in this encounter Plan of Treatment Not on file documented as of this encounter Visit Diagnoses Not on filedocumented in this encounter Care Teams Ointment Mill Tender Relationship Specialty Start Date End Date Amaral Marielos, PHYSICAL TESTING SUPERVISOR [address] [address] PCP - General Nurse Practitioner 08/18/23 documented as of this encounter
--- OUTSIDE RECORDS SUMMARY | 2025-05-14 20:34 | XMS_ITS | Encounter Summary ---
Author Organization [employer] ([place], [place], [place], [place]) Address [address] [place] [address] Care Team Providers Care Rivet Catcher Name Role Phone Marielos Amaral KAYE Primary Care Provider [phone] Encounter Details Date Type Department Care Team (Late st Contact Info) Description 02/06/2019 Transcribed Document [facility] [place] Family Medicine [address] [place] [address] ProviderHaroldo MD [address] [place] [address] Social History Tobacco Use Types Packs/Day Years Used Date Smoking Tobacco: Never Assessed Sex and Gender Information Value Date Recorded Sex Assigned at Not on file Legal Sex Male 3:45 PM CDT Gender Identity Not on file Sexual Orientation Not on file documented as of this encounter Miscellaneous Notes * [employer] Conversion Note - Haroldo ProviderMD - 02/06/2019 10:34 AM CDT Education-Diabetes Topics Entered On: 02/06/2019 11:34 EDT Performed On: 02/06/2019 10:34 EDT by Lina Chaudhary Rn-Flex Team Teaching/Learning Assessment Barriers To Learning : None evident Individuals Taught : Patient Readiness to Learn : Cooperative Lina Chaudhary Rn-Flex Team - 02/06/2019 11:33 EDT Education, Diabetes Diabetes Education Grid Symptom Identification & Action Plan *Q : Verbalizes understanding Lina Chaudhary Rn-Flex Team - 02/06/2019 11:33 EDT Electronically signed by Brittany [facility] Conversion [employer]eral Limousine Driver Cerner at 01/24/2023 10:45 AM CDT documented in this encounter Plan of Treatment Not on file documented as of this encounter Visit Diagnoses Not on filedocumented in this encounter Care Teams Rivet Catcher Relationship Specialty Start Date End Date Marielos Amaral, KAYE [address] [id number] PCP - General Nurse Practitioner 08/18/23 documented as of this encounter
--- OUTSIDE RECORDS SUMMARY | 2025-05-14 20:35 | XMS_ITS | Encounter Summary ---
Author Organization [employer] ([place], [place], [place], [place]) Address [address] [place] [address] Care Team Providers Care Automatic Pinsetter Adjuster Name Role Phone Marielos Amaral APRN Primary Care Provider Encounter Details Date Type Department Care Team (Late st Contact Info) Description 04/12/2020 Transcribed Document [facility] [place] [address] [place] [address] ProviderHaroldo MD [address] [place] [address] Social History Tobacco Use Types Packs/Day Years Used Date Smoking Tobacco: Never Assessed Sex and Gender Information Value Date Recorded Sex Assigned at Not on file Legal Sex Male 3:45 PM CDT Gender Identity Not on file Sexual Orientation Not on file documented as of this encounter Miscellaneous Notes * Cerner Conversion Note - Haroldo ProviderMD - 04/12/2020 3:16 PM CDT Patient: ZACKARY ANTOINE Age: 69 years Sex: Male : 1950 Associated Diagnoses: None Author: PRINCESS LOPEZ [facility] Procedure: Esophagogastroduodenoscopy with with cold biopsies and radiofrequency ablation Endoscopist: Princess Lopez II, M.D. Referring Physician: Axel Hamlin M.D. Date of Procedure: April 12, 2020 Equipment: Olympus GIF-190 standard gastroscope Method of Sedation: MAC sedation Indication: Mr. Antoine is a 69-year-old gentleman who is here for follow-up surveillance upper endoscopy with possible radiofrequency ablation. 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 The patient did have radiofrequency ablation initially in January 2019 and his last radiofrequency ablation was in April 2019. There was much improvement with 1 or 2 cm remaining of Valenzuela's esophagus at the time of his last examination. The patient does take omeprazole to control his symptoms of heartburn and reflux. He reports no dysphagia. Cardiac and long assessment prior to the examination was stable Findings: The endoscope was introduced directly into the posterior pharynx and upper esophagus and advanced to the third portion of the duodenum. Upon withdrawal of the endoscope the small bowel conniventes and mucosal pattern were normal. The scope was withdrawn through a normal bulb and pylorus into the stomach. There was minimal reactive gastropathy of the antrum. The remainder of the antrum, body and fundus of the stomach were otherwise essentially normal. Upon retroflexion there was a very small 1-2 cm hiatal hernia. The endoscope was then withdrawn into the esophagus. There was marked improvement of the Valenzuela's esophagus and there were 2 small islands of Valenzuela's with salmon-colored mucosa (4 and 8 mm in diameter) and 1 short tongue. The narrow band imaging was used to focally identify any site that may have dysplasia and 2 biopsies were obtained to confirm Valenzuela's and rule out dysplasia. The 90?? irregular 2 cm ablation probe was placed on the endoscope. Each segment at the GE junction and the 2 islands were ablated twice (12 ablations) at which point the coagulative debris was removed and cleared. Each of these areas was again ablated twice (12 total ablations again) for a total number of ablations of 24. All of the identified Valenzuela's was ablated. Impression: 1. Minimally remaining Valenzuela's (2 small islands of Valenzuela's) status post radiofrequency ablation Plan: I will follow-up the biopsies. As long as the type see showed no evidence of dysplasia, I am going to recommend repeat upper endoscopy in 2 years. I would continue omeprazole for complicated GERD on a long-term daily maintenance basis. documented in this encounter Plan of Treatment Not on file documented as of this encounter Visit Diagnoses Not on filedocumented in this encounter Care Teams Automatic Pinsetter Adjuster Relationship Specialty Start Date End Date Marielos Amaral, KAYE [address] [phone] PCP - General Nurse Practitioner 08/18/23 documented as of this encounter
--- OUTSIDE RECORDS SUMMARY | 2025-05-14 20:35 | XMS_ITS | Encounter Summary ---
Author Organization [employer] ([place], [place], [place], [place]) Address [address] [place] [address] Care Team Providers Care New Media Strategist Name Role Phone Marielos Amaral APRN Primary Care Provider Encounter Details Date Type Department Care Team (Late st Contact Info) Description 02/06/2019 Transcribed Document [facility] Radiology [address] [phone] Fidencio Tolliver MD [address] [place] [address] [address] [place] [address] Social History Tobacco Use Types Packs/Day Years Used Date Smoking Tobacco: Never Assessed Sex and Gender Information Value Date Recorded Sex Assigned at Not on file Legal Sex Male 3:45 PM CDT Gender Identity Not on file Sexual Orientation Not on file documented as of this encounter Miscellaneous Notes * Cerner Conversion Note - Fidencio Tolliver MD - 02/06/2019 12:55 PM EDT Patient: ZACKARY ANTOINE Age: 68 years Sex: Male : 1950 Associated Diagnoses: None Author: FIDENCIO TOLLIVER MD-INT Subjective PCP: Dr. Axel Hamlin DOA: 02/05/2019 DOD: HPI: Admitted with right sided weakness and uncontrolled movements with with a known history of coronary artery disease and multiple risk factors. CODE STATUS: Full code CONSULTS: [facility] WORKUP / PROCEDURES: HOSPITAL FOLLOWUP: 02/06 Patient is awake and alert, seen and examined, chart reviewed, discussed with nursing staff. Patient complaining of some numbness of right upper extremity. His speech seems to be intact. No dyspnea, no fever, no chest pain. Health Status Allergies: Allergic Reactions (Selected) Severity Not Documented Amoxicillin- No reactions were documented. Mucinex- No reactions were documented. Current medications: (Selected) Inpatient Medications Ordered Colace: 100 mg, Oral, BID Flomax: 0.4 mg, Oral, Daily Lovenox: 40 mg, SubCutaneous, Daily MiraLax: 17 Gram, Oral, Daily, PRN: [...] 24 hrs) Last Charted Minimum Maximum Temp 98.3 (FEBRUARY 06 09:28) 98.3 (FEBRUARY 06 09:28) 98.7 (FEBRUARY 05 18:55) Mon HR 76 (FEBRUARY 06 09:28) 66 (FEBRUARY 06 05:30) 86 (FEBRUARY 06 01:35) Periph HR 84 (FEBRUARY 05 18:55) 84 (FEBRUARY 05 18:55) 84 (FEBRUARY 05 18:55) Resp Rate 20 (FEBRUARY 06 09:28) 14 (FEBRUARY 05 20:00) H 24 (FEBRUARY 06 02:00) SBP H 173 (FEBRUARY 06 09:28) 108 (FEBRUARY 06 04:00) H 174 (FEBRUARY 06 07:00) DBP H 92 (FEBRUARY 06 09:28) L 59 (FEBRUARY 06 04:00) H 92 (FEBRUARY 05 18:55) MAP 127 (FEBRUARY 06 09:28) 78 (FEBRUARY 06 04:00) 127 (FEBRUARY 06 09:28) SpO2 99 (FEBRUARY 06 09:28) 94 (FEBRUARY 06 04:00) 99 (FEBRUARY 05 22:00) General: Alert and oriented, Mild distress. Eye: Pupils are equal, round and reactive to light, Normal conjunctiva. HENT: Normocephalic, Oral mucosa is moist. Neck: Supple, Non-tender, No carotid bruit. Respiratory: Lungs are clear to auscultation, Respirations are non-labored, Breath sounds are equal. Cardiovascular: Normal rate, Regular rhythm. Gastrointestinal: Soft, Non-tender, Normal bowel sounds. Musculoskeletal: Normal range of motion. Integumentary: Warm. Neurologic: Alert, Oriented, Right upper extremity numbness and weakness. Psychiatric: Cooperative. Results Review Radiology Results (Last 48 hours) [id number] -- 02/05/2019 23:59 CT Head WO (02/05/2019 [...] approximately 50% stenosis of theproximal basilar artery. change person show mild stenosis proximally. IMPRESSION: 1. 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 Anterior circulation intact.3. 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 This study was performed using dose [...] exposure as low as reasonably achievable (ALARA) FEBRUARY 05 21:52 137 105 16 / 97 4.6 23 0.90 \ FEBRUARY 05 21:52 \ 14.7 / H 11.4 325 / 42.8 \ Impression and Plan Assessment and Plan: Diagnosis. DIAGNOSIS: Acute CVA versus TIA, presented with right upper extremity numbness. Coronary artery disease with this history of CABG and previous coronary stents Type 2 diabetes Essential hypertension Hyperlipidemia Paroxysmal atrial fibrillation Hypothyroid BPH / migraine PLAN Stroke and TIA workup initiated, neurology consulted, follow instructions. Monitor blood glucose, continue home medicines and covered with sliding scale insulin. Check TSH, monitor blood pressure and adjust medications as needed. Follow electrolytes and replace as needed. PT OT initiated. documented in this encounter Plan of Treatment Not on file documented as of this encounter Visit Diagnoses Not on filedocumented in this encounter Care Teams New Media Strategist Relationship Specialty Start Date End Date Marielos Amaral, KAYE [address] [place] [address] PCP - General Nurse Practitioner 08/18/23 documented as of this encounter
--- OUTSIDE RECORDS SUMMARY | 2025-05-14 20:35 | XMS_ITS | Encounter Summary ---
Author Organization [employer] ([place], [place], [place], [place]) Address [address] [place] [address] Care Team Providers Care Special Event Assistant Name Role Phone Marielos Amaral KAYE Primary Care Provider [phone] Encounter Details Date Type Department Care Team (Late st Contact Info) Description 04/12/2020 Transcribed Document [facility] Family Medicine [address] [place] [id number] ProviderHaroldo MD [address] [place] [address] Social History Tobacco Use Types Packs/Day Years Used Date Smoking Tobacco: Never Assessed Sex and Gender Information Value Date Recorded Sex Assigned at Not on file Legal Sex Male 3:45 PM CDT Gender Identity Not on file Sexual Orientation Not on file documented as of this encounter Miscellaneous Notes * Cerner Conversion Note - Haroldo Warren MD - 04/12/2020 7:57 AM CDT Patient Education Materials Follows: Valenzuela's Esophagus Valenzuela's esophagus occurs when the tissue that lines the esophagus changes or becomes damaged. The esophagus is the tube that carries food from the throat to the stomach. With Valenzuela's esophagus, the cells that line the esophagus are replaced by cells that are similar to the lining of the intestines (intestinal metaplasia). Valenzuela's esophagus itself may not cause any symptoms. However, many people who have Valenzuela's esophagus also have gastroesophageal reflux disease (GERD), which may cause symptoms such as heartburn. Over time, a few people with this condition may develop cancer of the esophagus. Treatment may include medicines, procedures to destroy the abnormal cells, or surgery. What are the causes? The exact cause of this condition is not known. In some cases, the condition develops from damage to the lining of the esophagus caused by GERD. GERD occurs when stomach acids flow up from the stomach into the esophagus. Frequent symptoms of GERD may cause intestinal metaplasia or cause cell changes (dysplasia). What increases the risk? You are more likely to develop this condition if you: ??? Have GERD. ??? Are male. ??? Are . ??? Are obese. ??? Are older than 50. ??? Have a hiatal hernia. This is a condition in which part of your stomach bulges into your chest. ??? Smoke. What are the signs or symptoms? People with Valenzuela's esophagus often have no symptoms. However, many people with this condition also have GERD. Symptoms of GERD may include: ??? Heartburn. ??? Difficulty swallowing. ??? Dry cough. How is this diagnosed? This condition may be diagnosed based on: ??? Results of an upper gastrointestinal endoscopy. For this exam, a thin, flexible tube with a light and a camera on the end (endoscope) is passed down your esophagus. Your health care provider can view the inside of your esophagus during this procedure. ??? Results of a biopsy. For this procedure, several tissue samples are removed (biopsy) from your esophagus. They are then checked for intestinal metaplasia or dysplasia. How is this treated? Treatment for this condition may include: ??? Medicines (proton pump inhibitors, or PPIs) to decrease or stop GERD. ??? Periodic endoscopic exams to make sure that cancer is not developing. ??? A procedure or surgery for dysplasia. This may include: ? Removal or destruction of abnormal cells. ? Removal of part of the esophagus (esophagectomy). Follow these instructions at home: Eating and drinking ??? Eat more fruits and vegetables. ??? Avoid fatty foods. ??? Eat small, frequent meals instead of large meals. ??? Avoid foods that cause heartburn. These foods include: ? Coffee and alcoholic drinks. ? Tomatoes and foods made with tomatoes. ? [place]quero or spicy foods. ? Chocolate and peppermint. ??? Do not drink alcohol. General instructions ??? Take uprz-aif-ddvlwiw and prescription medicines only as told by your health care provider. ??? Do not use any products that contain nicotine or tobacco, such as cigarettes and e-cigarettes. If you need help quitting, ask your health care provider. ??? If you are being treated for GERD, make sure you take medicines and follow all instructions as told by your health care provider. ??? Keep all follow-up visits as told by your health care provider. This is important. Contact a health care provider if: ??? You have heartburn or GERD symptoms. ??? You have difficulty swallowing. Get help right away if: ??? You have chest pain. ??? You are unable to swallow. ??? You vomit blood or material that looks like coffee grounds. ??? Your stool (feces) is bright red or dark. Summary ??? Valenzuela's esophagus occurs when the tissue that lines the esophagus changes or becomes damaged. ??? Valenzuela's esophagus may be diagnosed with an upper gastrointestinal endoscopy and a biopsy. ??? Treatment may include medicines, procedures to remove abnormal cells, or surgery. ??? Follow your health care provider's instructions about what to eat and drink, what medicines to take, and when to call for help. This information is not intended to replace advice given to you by your health care provider. Make sure you discuss any questions you have with your health care provider. Document Released: 12/12/2004 Document Revised: 01/18/2019 Document Reviewed: 01/18/2019 [employer] Interactive Patient Education ? 2020 [employer] General Anesthesia, Adult, Care After This sheet gives you information about how to care for yourself after your procedure. Your health care provider may also give you more specific instructions. If you have problems or questions, contact your health care provider. What can I expect after the procedure? After the procedure, the following side effects are common: ??? Pain or discomfort at the IV site. ??? Nausea. ??? Vomiting. ??? Sore throat. ??? Trouble concentrating. ??? Feeling cold or chills. ??? Weak or tired. ??? Sleepiness and fatigue. ??? Soreness and body aches. These side effects can affect parts of the body that were not involved in surgery. Follow these instructions at home: For at least 24 hours after the procedure: ??? Have a responsible adult stay with you. It is important to have someone help care for you until you are awake and alert. ??? Rest as needed. ??? Do not: ? Participate in activities in which you could fall or become injured. ? Drive. ? Use heavy machinery. ? Drink alcohol. ? Take sleeping pills or medicines that cause drowsiness. ? Make important decisions or sign legal documents. ? Take care of children on your own. Eating and drinking ??? Follow any instructions from your health care provider about eating or drinking restrictions. ??? When you feel hungry, start by eating small amounts of foods that are soft and easy to digest (bland), such as toast. Gradually return to your regular diet. ??? Drink enough fluid to keep your urine pale yellow. ??? If you vomit, rehydrate by drinking water, juice, or clear broth. General instructions ??? If you have sleep apnea, surgery and certain medicines can increase your risk for breathing problems. Follow instructions from your health care provider about wearing your sleep device: ? Anytime you are sleeping, including during daytime naps. ? While taking prescription pain medicines, sleeping medicines, or medicines that make you drowsy. ??? Return to your normal activities as told by your health care provider. Ask your health care provider what activities are safe for you. ??? Take rsig-cqs-dmyjsdq and prescription medicines only as told by your health care provider. ??? If you smoke, do not smoke without supervision. ??? Keep all follow-up visits as told by your health care provider. This is important. Contact a health care provider if: ??? You have nausea or vomiting that does not get better with medicine. ??? You cannot eat or drink without vomiting. ??? You have pain that does not get better with medicine. ??? You are unable to pass urine. ??? You develop a skin rash. ??? You have a fever. ??? You have redness around your IV site that gets worse. Get help right away if: ??? You have difficulty breathing. ??? You have chest pain. ??? You have blood in your urine or stool, or you vomit blood. Summary ??? After the procedure, it is common to have a sore throat or nausea. It is also common to feel tired. ??? Have a responsible adult stay with you for the first 24 hours after general anesthesia. It is important to have someone help care for you until you are awake and alert. ??? When you feel hungry, start by eating small amounts of foods that are soft and easy to digest (bland), such as toast. Gradually return to your regular diet. ??? Drink enough fluid to keep your urine pale yellow. ??? Return to your normal activities as told by your health care provider. Ask your health care provider what activities are safe for you. This information is not intended to replace advice given to you by your health care provider. Make sure you discuss any questions you have with your health care provider. Document Released: 12/29/2001 Document Revised: 05/08/2018 Document Reviewed: 05/08/2018 [employer] Interactive Patient Education ? 2020 [employer]. ESOPHAGOGASTRODUODENOSCOPY Care After Read the instructions outlined below and refer to this sheet over the next few days. These discharge instructions provide you with general information on caring for yourself after you leave the hospital. Your doctor may also give you specific instructions. While your treatment has been planned according to the most current medical practices available, unavoidable complications occasionally occur. If you have any problems or questions after discharge, call your doctor. HOME CARE INSTRUCTIONS: ACTIVITY: ?? You may resume your regular activity tomorrow, but move at a slower pace for the next 24 hours. ?? Take frequent rest periods for the next 24 hours. ?? Walking will help get rid of the air and reduce the bloated feeling in your belly (abdomen). ?? No driving for 24 hours because of the medication (sedation) used during the test. ?? You may shower. ?? Do not sign any important legal documents or operate any machinery for 24 hours (because of the sedation used during the test). NUTRITION: ?? Drink plenty of fluids. ?? You may resume your normal diet or as instructed by your doctor ?? Begin with a light meal and progress to your normal diet. Heavy or fried foods are harder to digest and may make you feel sick to your stomach (nauseated). ?? Avoid alcoholic beverages for 24 hours or as instructed. MEDICATIONS: ?? You may resume your normal medications unless your doctor tells you otherwise. WHAT TO EXPECT TODAY: ?? Some feelings of bloating in the abdomen. ?? Excessive burping today and passage of more gas than usual. ?? A sore throat can be normal. Use throat lozenges or gargle with warm salt water and drink plenty of fluids. FINDING OUT THE RESULTS OF YOUR TEST: ?? Not all test results are available during your visit. If you had biopsies or other tests done during your procedure, you can make an appointment with your doctor to get the results. Sometimes you may be instructed to call the doctor's office for your results. It is important for you to follow up on all of your test results. SEEK IMMEDIATE MEDICAL CARE IF: ?? You cannot eat or drink. ?? You have worsening throat or chest pain. ?? You have dizziness, lightheadedness, or you faint. ?? You have severe nausea or vomiting. ?? You have a fever greater than 101. ?? You have chills. ?? You have severe abdominal pain or discomfort that gets worse throughout the day. ?? You have black, tarry, or bloody stools. documented in this encounter Plan of Treatment Not on file documented as of this encounter Visit Diagnoses Not on filedocumented in this encounter Care Teams Special Event Assistant Relationship Specialty Start Date End Date Marielos Amaral APRN [address] [address] PCP - General Nurse Practitioner 08/18/23 documented as of this encounter
--- OUTSIDE RECORDS SUMMARY | 2025-05-14 20:35 | XMS_ITS | Encounter Summary ---
Author Organization [employer] ([place], [place], [place], [place]) Address [address] [place] [address] Care Team Providers Care Teletypist Name Role Phone Marielos Amaral KAYE Primary Care Provider Encounter Details Date Type Department Care Team (Late st Contact Info) Description 04/25/2022 Transcribed Document [facility] Radiology [address] [place], [place] [id number] Saba Neal MD [address] [place] [address] [address] [place] [address] Social History Tobacco Use Types Packs/Day Years [...] Do you speak a language other than [place] at [facility]? Yes 10/30/2024 Do you want [...] Conversion Note - Saba Neal MD - 04/25/2022 11:12 AM EDT Patient: DEION ANTOINE Age: 71 years Sex: Male : 1950 Associated Diagnoses: None Author: SABA NEAL MD-INT Subjective Patient feeling better today. Review of Systems Constitutional: Weakness, Fatigue, No [...] Other (See Comment) Eliquis: 2.5 mg, Oral, [id number] Flomax: 0.4 mg, Oral, Daily Lokelma: 15 Gram, Oral, 1-Time Metoprolol Succinate ER: 50 mg, Oral, Daily Normal Saline 1,000 mL: 100 mL/Hr, IntraVENous Rocephin: 1 Gram, 100 mL/Hr, IV Piggyback, [id number] Tylenol: 650 mg, Oral, Q4H, PRN: Pain [...] mg tab 2.5 mg 1 Tab, Oral, [id number] atorvastatin 40 mg tab 40 mg 1 Tab, Oral, At Bedtime [id number] 1 Gram, IV Piggyback, [id number] cholecalciferol 1,000 unit tab 1,000 Units 1 [...] list: Medical Atrial fibrillation / SNOMED CT 69687176 / Confirmed CAD - Coronary artery disease / SNOMED CT 7357259851 / Confirmed Cardiomyopathy / SNOMED CT 942074965 / Confirmed Acute cerebrovascular accident (CVA) / SNOMED CT 523087241 / Confirmed History of obstructive sleep apnea / IMO [id number] / Confirmed HLD - Hyperlipidemia / SNOMED CT 114655470 / Confirmed HTN - Hypertension / SNOMED CT 6617871871 / Confirmed Type 2 diabetes mellitus / SNOMED CT 171753991 / Confirmed, Active Problems (20) Acute cerebrovascular [...] Temp 97.7 (APR 24:32) 97.7 (APR 24:32) 97.8 (APR 24 14:05) Apical HR 75 (APR 25 10:05) 72 (APR 24 15:41) 75 (APR 24 12:44) Mon HR 72 (APR 24 23:32) 72 (APR 24 14:05) 73 (APR 24 18:52) Resp Rate 18 (APR 24 18:52) 18 (APR 24 14:05) 18 (APR 24 14:05) SBP 101 (APR 24:32) 101 (APR 24:32) H 160 (APR 24 15:41) DBP L 47 (APR 24:32) L 47 (APR 24 23:32) 77 (APR 24 14:05) MAP 72 (APR 24:32) 72 (APR 24 23:32) 113 (APR 24 15:41) SpO2 98 (APR 24:32) 95 (APR 24 14:05) 100 (APR 24 18:52) General: Alert and oriented, No acute distress. Eye: Pupils are equal, round and reactive to light, Extraocular movements are intact, Normal conjunctiva. HENT: Normocephalic. Neck: Supple, Non-tender. Respiratory: Lungs are clear to auscultation, Breath sounds are equal. Cardiovascular: Normal rate, Regular rhythm, No murmur. Gastrointestinal: Soft, Non-distended, Normal bowel sounds. Genitourinary: Galvan catheter in place. Musculoskeletal: Normal range of motion, No tenderness. Integumentary: Warm, No rash. Neurologic: Alert, Oriented, No focal deficits. Psychiatric: Cooperative, Appropriate mood & affect. Review / Management APR 25 06:55 L 134 106 H 50 / H 174 H 5.4 23 H 3.30 \ APR 25 06:55 \ L 9.2 / 6.1 236 / L 27.6 \ Radiology Results (Last 48 hours) [id number] -- 04/22/2022 12:30 US Renal Comp (04/23/2022 11:40) Result: RENAL ULTRASOUNDHISTORY: Renal failure.PROCEDURE: Ultrasound images of the kidneys were obtained.FINDINGS: Limited images of the liver parenchyma demonstrate normal echogenicity. The right kidney measures 11 cm in length . It is normal echogenicity. There is no hydronephrosis.The left kidney measures 11 cm in length . It is normal echogenicity. There is no hydronephrosis.IMPRESSION: Normal renal ultrasound.Images reviewed, interpreted, and dictated by Dr. Doe Herbert.Transcribed by Caroline Gunderson PA-C.I have personally viewed, [...] 3.0 (APR 24) 3.4 (APR 22) . Medication Changes from Previous Midnight to Current New Medications: hydrALAZINE 50 mg, Oral, Tab, BID, Routine, Start 04/24/22 10:56:00 EDT, 04/24/22 10:56:00 EDT SABA NEAL MD-INT levothyroxine 75 mcg, Oral, Tab, Daily, Routine, Start 04/25/22 10:41:00 EDT, 04/25/22 10:41:00 EDT SABA NEAL MD-INT metoprolol (Metoprolol Succinate ER) 50 mg, Oral, XL Tab, Daily, Routine, Start 04/24/22 10:58:00 EDT, 04/24/22 10:58:00 EDT SABA NEAL MD-INT sodium zirconium cyclosilicate (Lokelma) 15 Gram, Oral, Powder, 1-Time, Routine, Start 04/25/22 10:00:00 EDT, Stop 04/25/22 10:00:00 EDT, 04/25/22 9:59:00 EDT PARAM WEBBER MD tamsulosin (Flomax) 0.4 mg, Oral, CR Cap, Daily, Routine, Start 04/24/22 10:56:00 EDT, 04/24/22 10:56:00 EDT SABA NEAL MD-INT Discontinued Medications: levothyroxine 100 mcg, Oral, Tab, Daily, Routine, Start 04/23/22 6:30:00 EDT, 04/22/22 13:47:00 EDT SABA NEAL MD-INT Impression and Plan 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 -Renal vs prerenal -Continue IV fluid. - IV sodium bicarbonate drip discontinued. -renal ultrasound noted -Hold all nephrotoxic meds including Bumex, Aldactone and lisinopril -Follow electrolytes and renal function closely until to baseline. -Creatinine 7.8----> 3.3 -Nephroloy following Urinary tract infection. Urinalysis noted. Urine culture [...] Telemetry monitoring. Resume Lopressor Continue Eliquis. Hypothyroidism. Resume Synthroid. Urinary retention. History of benign prostate hypertrophy. Catheter training and discontinue Galvan catheter. Resume Flomax CODE STATUS. DNR/DNI. GI and DVT prophylaxis. Disposition. Acute on chronic renal failure. With metabolic acidosis Monitor kidney function closely. Likely discharge home in 1-2 days documented in this encounter Plan of Treatment Not on file documented as of this encounter Visit Diagnoses Not on filedocumented in this encounter Care Teams Teletypist Relationship Specialty Start Date End Date Marielos Amaral, JOB DEVELOPER [address] [place] [address] PCP - General Nurse Practitioner 08/18/23 documented as of this encounter
--- OUTSIDE RECORDS SUMMARY | 2025-05-14 20:35 | XMS_ITS | Encounter Summary ---
Author Organization [employer] ([place], [place], [place], [place]) Address [address] [place] [address] Care Team Providers Care Streetcar Repairer Name Role Phone Marielos Amaral KAYE Primary Care Provider Encounter Details Date Type Department Care Team (Late st Contact Info) Description 10/17/2019 Transcribed Document [facility] [place] [address] [place] [address] ProviderHaroldo MD [address] [place] [address] Social History Tobacco Use Types Packs/Day Years Used Date Smoking Tobacco: Never Assessed Sex and Gender Information Value Date Recorded Sex Assigned at Not on file Legal Sex Male 3:45 PM CDT Gender Identity Not on file Sexual Orientation Not on file documented as of this encounter Miscellaneous Notes * Cerner Conversion Note - Haroldo ProviderMD - 10/17/2019 12:15 PM FISHING CAPTAIN Patient Education Materials Follows: Hospital Discharge After a Stroke Being discharged from the hospital after a stroke can feel overwhelming. Many things may be different, and it is normal to feel scared or anxious. Some stroke survivors may be able to return to their homes, and others may need more specialized care on a temporary or permanent basis. Your stroke care team will work with you to develop a discharge plan that is best for you. Ask questions if you do not understand something. Invite a friend or family member to participate in discharge planning. Understanding and following your discharge plan can help to prevent another stroke or other problems. Understanding your medicines After a stroke, your health care provider may prescribe one or more types of medicine. It is important to take medicines exactly as told by your health care provider. Serious harm, such as another stroke, can happen if you are unable to take your medicine exactly as prescribed. Make sure you understand: ??? What medicine to take. ??? Why you are taking the medicine. ??? How and when to take it. ??? If it can be taken with your other medicines and herbal supplements. ??? Possible side effects. ??? When to call your health care provider if you have any side effects. ??? How you will get and pay for your medicines. Medical assistance programs may be able to help you pay for prescription medicines if you cannot afford them. If you are taking an anticoagulant, be sure to take it exactly as told by your health care provider. This type of medicine can increase the risk of bleeding because it works to prevent blood from clotting. You may need to take certain precautions to prevent bleeding. You should contact your health care provider if you have: ??? Bleeding or bruising. ??? A fall or other injury to your head. ??? Blood in your urine or stool (feces). Planning for home safety Take steps to prevent falls, such as installing grab bars or using a shower chair. Ask a friend or family member to get needed things in place before you go home if possible. A therapist can come to your home to make recommendations for safety equipment. Ask your health care provider if you would benefit from this service or from home care. Getting needed equipment Ask your health care provider for a list of any medical equipment and supplies you will need at home. These may include items such as: ??? Walkers. ??? Canes. ??? Wheelchairs. ??? Hand-strengthening devices. ??? Special eating utensils. Medical equipment can be rented or purchased, depending on your insurance coverage. Check with your insurance company about what is covered. Keeping follow-up visits After a stroke, you will need to follow up regularly with a health care provider. You may also need rehabilitation, which can include physical therapy, occupational therapy, or speech-language therapy. Keeping these appointments is very important to your recovery after a stroke. Be sure to bring your medicine list and discharge papers with you to your appointments. If you need help to keep track of your schedule, use a calendar or appointment reminder. Preventing another stroke Having a stroke puts you at risk for another stroke in the future. Ask your health care provider what actions you can take to lower the risk. These may include: ??? Increasing how much you exercise. ??? Making a healthy eating plan. ??? Quitting smoking. ??? Managing other health conditions, such as high blood pressure, high cholesterol, or diabetes. ??? Limiting alcohol use. Knowing the warning signs of a stroke Make sure you understand the signs of a stroke. Before you leave the hospital, you will receive information outlining the stroke warning signs. Share these with your friends and family members. BE FAST is an easy way to remember the main warning signs of a stroke: ??? B - Balance. Signs are dizziness, sudden trouble walking, or loss of balance. ??? E - Eyes. Signs are trouble seeing or a sudden change in vision. ??? F - Face. Signs are sudden weakness or numbness of the face, or the face or eyelid drooping on one side. ??? A - Arms. Signs are weakness or numbness in an arm. This happens suddenly and usually on one side of the body. ??? S - Speech. Signs are sudden trouble speaking, slurred speech, or trouble understanding what people say. ??? T - Time. Time to call emergency services. Write down what time symptoms started. Other signs of stroke may include: ??? A sudden, severe headache with no known cause. ??? Nausea or vomiting. ??? Seizure. These symptoms may represent a serious problem that is an emergency. Do not wait to see if the symptoms will go away. Get medical help right away. Call your local emergency services (911 in the [place] Do not drive yourself to the hospital. Make note of the time that you had your first symptoms. Your emergency responders or emergency room staff will need to know this information. Summary ??? Being discharged from the hospital after a stroke can feel overwhelming. It is normal to feel scared or anxious. ??? Make sure you take medicines exactly as told by your health care provider. ??? Know the warning signs of a stroke, and get help right way if you have any of these symptoms. BE FAST is an easy way to remember the main warning signs of a stroke. This information is not intended to replace advice given to you by your health care provider. Make sure you discuss any questions you have with your health care provider. Document Released: 12/26/2017 Document Revised: 12/26/2017 Document Reviewed: 12/26/2017 [employer] Interactive Patient Education ? 2019 [employer] Inc[employer] Stroke Prevention Some medical conditions and behaviors are associated with a higher chance of having a stroke. You can help prevent a stroke by making nutrition, lifestyle, and other changes, including managing any medical conditions you may have. What nutrition changes can be made? Eat healthy foods. You can do this by: ? Choosing foods high in fiber, such as fresh fruits and vegetables and whole grains. ? Eating at least 5 or more servings of fruits and vegetables a day. Try to fill half of your plate at each meal with fruits and vegetables. ? Choosing lean protein foods, such as lean cuts of meat, poultry without skin, fish, tofu, beans, and nuts. ? Eating low-fat dairy products. ? Avoiding foods that are high in salt (sodium). This can help lower blood pressure. ? Avoiding foods that have saturated fat, trans fat, and cholesterol. This can help prevent high cholesterol. ? Avoiding processed and premade foods. ??? Follow your health care provider's specific guidelines for losing weight, controlling high blood pressure (hypertension), lowering high cholesterol, and managing diabetes. These may include: ? Reducing your daily calorie intake. ? Limiting your daily sodium intake to 1,500 milligrams (mg). ? Using only healthy fats for cooking, such as olive oil, canola oil, or sunflower oil. ? Counting your daily carbohydrate intake. What lifestyle changes can be made? Maintain a healthy weight. Talk to your health care provider about your ideal weight. ??? Get at least 30 minutes of moderate physical activity at least 5 days a week. Moderate activity includes brisk walking, biking, and swimming. ??? Do not use any products that contain nicotine or tobacco, such as cigarettes and e-cigarettes. If you need help quitting, ask your health care provider. It may also be helpful to avoid exposure to secondhand smoke. ??? Limit alcohol intake to no more than 1 drink a day for non women and 2 drinks a day for men. One drink equals 12 oz of beer, 5 oz of wine, or 1? oz of hard liquor. ??? Stop any illegal drug use. ??? Avoid taking control pills. Talk to your health care provider about the risks of taking control pills if: ? You are over 35 years old. ? You smoke. ? You get migraines. ? You have ever had a blood clot. What other changes can be made? Manage your cholesterol levels. ? Eating a healthy diet is important for preventing high cholesterol. If cholesterol cannot be managed through diet alone, you may also need to take medicines. ? Take any prescribed medicines to control your cholesterol as told by your health care provider. ??? Manage your diabetes. ? Eating a healthy diet and exercising regularly are important parts of managing your blood sugar. If your blood sugar cannot be managed through diet and exercise, you may need to take medicines. ? Take any prescribed medicines to control your diabetes as told by your health care provider. ??? Control your hypertension. ? To reduce your risk of stroke, try to keep your blood pressure below 130/80. ? Eating a healthy diet and exercising regularly are an important part of controlling your blood pressure. If your blood pressure cannot be managed through diet and exercise, you may need to take medicines. ? Take any prescribed medicines to control hypertension as told by your health care provider. ? Ask your health care provider if you should monitor your blood pressure at home. ? Have your blood pressure checked every year, even if your blood pressure is normal. Blood pressure increases with age and some medical conditions. ??? Get evaluated for sleep disorders (sleep apnea). Talk to your health care provider about getting a sleep evaluation if you snore a lot or have excessive sleepiness. ??? Take toda-its-spzfwej and prescription medicines only as told by your health care provider. Aspirin or blood thinners (antiplatelets or anticoagulants) may be recommended to reduce your risk of forming blood clots that can lead to stroke. ??? Make sure that any other medical conditions you have, such as atrial fibrillation or atherosclerosis, are managed. What are the warning signs of a stroke? The warning signs of a stroke can be easily remembered as BEFAST. ??? B is for balance. Signs include: ? Dizziness. ? Loss of balance or coordination. ? Sudden trouble walking. ??? E is for eyes. Signs include: ? A sudden change in vision. ? Trouble seeing. ??? F is for face. Signs include: ? Sudden weakness or numbness of the face. ? The face or eyelid drooping to one side. ??? A is for arms. Signs include: ? Sudden weakness or numbness of the arm, usually on one side of the body. ??? S is for speech. Signs include: ? Trouble speaking (aphasia). ? Trouble understanding. ??? T is for time. ? These symptoms may represent a serious problem that is an emergency. Do not wait to see if the symptoms will go away. Get medical help right away. Call your local emergency services (911 in the [place] Do not drive yourself to the hospital. ??? Other signs of stroke may include: ? A sudden, severe headache with no known cause. ? Nausea or vomiting. ? Seizure. Where to find more information For more information, visit: ??? [place] Stroke Association: www.strokeassociation.org ??? National Stroke Association: www.stroke.org Summary ??? You can prevent a stroke by eating healthy, exercising, not smoking, limiting alcohol intake, and managing any medical conditions you may have. ??? Do not use any products that contain nicotine or tobacco, such as cigarettes and e-cigarettes. If you need help quitting, ask your health care provider. It may also be helpful to avoid exposure to secondhand smoke. ??? Remember BEFAST for warning signs of stroke. Get help right away if you or a loved one has any of these signs. This information is not intended to replace advice given to you by your health care provider. Make sure you discuss any questions you have with your health care provider. Document Released: 10/30/2005 Document Revised: 10/28/2017 Document Reviewed: 10/28/2017 [employer] Interactive Patient Education ? 2019 [employer] Inc[employer] documented in this encounter Plan of Treatment Not on file documented as of this encounter Visit Diagnoses Not on filedocumented in this encounter Care Teams Streetcar Repairer Relationship Specialty Start Date End Date Marielos Amaral APRN [address] [address] PCP - General Nurse Practitioner 08/18/23 documented as of this encounter
--- OUTSIDE RECORDS SUMMARY | 2025-05-14 20:35 | XMS_ITS | Encounter Summary ---
Author Organization [employer] ([place], [place], [place], [place]) Address [address] [place] [address] Care Team Providers Care Assistant Engineer Name Role Phone Marielos Amaral KAYE Primary Care Provider [phone] Encounter Details Date Type Department Care Team (Late st Contact Info) Description 02/05/2019 Transcribed Document [facility] [place] [address] [place] [address] ProviderHaroldo MD [address] [place] [address] Social History Tobacco Use Types Packs/Day Years Used Date Smoking Tobacco: Never Assessed Sex and Gender Information Value Date Recorded Sex Assigned at Not on file Legal Sex Male 3:45 PM CDT Gender Identity Not on file Sexual Orientation Not on file documented as of this encounter Miscellaneous Notes * Cerner Conversion Note - Haroldo ProviderMD - 02/05/2019 6:46 PM CDT ED Triage Entered On: 02/05/2019 19:01 EDT Performed On: 02/05/2019 18:55 EDT by Merritt Guzman RN ED Triage Across the Room Triage Date/Time : 02/05/2019 18:55 EDT Chief Complaint : pt here c/o right shoulder pain and weakness to right arm and loss of balance 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 strength equal bilaterally decreased sensation to right arm and right leg no facial droop or slurred speech equal bilateral lower extremities Merritt Guzman RN - 02/05/2019 18:55 EDT DCP GENERIC CODE Tracking Acuity : 2 - Emergent Tracking Group : [facility] ED Merritt Guzman RN - 02/05/2019 18:55 EDT Mode of Arrival : Ambulatory Transported to ED by : Walk in To Room Via : Wheelchair Accompanied By : Unaccompanied ED Vital Signs : Document Height & Weight : Document ED Allergies : Document ED Reason for Visit : Document Tetanus Immunization : Greater than 5 years Merritt Guzman RN - 02/05/2019 18:55 EDT Infectious Disease History Infectious Disease History : Chicken pox/Shingles, Influenza, Measles, Mumps, Rubella Isolation Needed : Standard Fever/Chills Last 48 Hours : No Travel To Regions with Travel Advisories : No Travel Outside [place] Within Last 30 Days : No Contact With Traveler to Advisory Region : No Tuberculosis Symptoms : None Merritt Guzman RN - 02/05/2019 18:55 EDT Vital Signs ED Temperature Source : Oral Temperature Mode : Fahrenheit Temperature, Fahrenheit : 98.7 Deg F Clinical Temperature, C : 37.1 Deg C Oxygen Therapy Mode : Room air Peripheral Pulse Rate : 84 bpm Respiratory Rate : 16 Breaths/Min Systolic Blood Pressure : 168 mmHg (HI) Diastolic Blood Pressure : 92 mmHg (HI) Oxygen Saturation : 98 % Merritt Guzman RN - 02/05/2019 18:55 EDT Allergy (As Of: 02/05/2019 19:01:21 EDT) Allergies (Active) amoxicillin Estimated Onset Date: Unspecified ; Created By: RAVEN REILLY RN; Reaction Status: Active ; Category: Drug ; Substance: amoxicillin ; Type: Allergy ; Updated By: RAVEN REILLY RN; Reviewed Date: 02/05/2019 18:56 EDT Mucinex Estimated Onset Date: Unspecified ; Created By: RAVEN REILLY RN; Reaction Status: Active ; Category: Drug ; Substance: Mucinex ; Type: Allergy ; Updated By: RAVEN REILLY RN; Reviewed Date: 02/05/2019 18:56 EDT Diagnosis Control ED (As Of: 02/05/2019 19:01:21 EDT) Problems(Active) Angina (SNOMED CT :926002580 ) Name of Problem: Angina ; Recorder: RAVEN REILLY RN; Confirmation: Confirmed ; Classification: Patient Stated ; Code: [id number] ; Contributor System: PowerChart ; Last Updated: 07/20/2014 9:33 EDT ; Life Cycle Date: 07/20/2014 ; Life Cycle Status: Active ; Vocabulary: SNOMED CT Coronary artery disease (SNOMED CT :1229710621 ) Name of Problem: Coronary artery disease ; Recorder: RAVEN REILLY RN; Confirmation: Confirmed ; Classification: Patient Stated ; Code: [id number] ; Contributor System: PowerChart ; Last Updated: 07/20/2014 9:33 EDT ; Life Cycle Date: 07/20/2014 ; Life Cycle Status: Active ; Vocabulary: SNOMED CT Diabetes mellitus type II (SNOMED CT :34997446 ) Name of Problem: Diabetes mellitus type II ; Recorder: RAVEN REILLY RN; Confirmation: Confirmed ; Classification: Patient Stated ; Code: [id number] ; Contributor System: MobileSpanChart ; Last Updated: 07/20/2014 9:35 EDT ; Life Cycle Date: 07/20/2014 ; Life Cycle Status: Active ; Vocabulary: SNOMED CT Enlarged prostate (SNOMED CT :583893225 ) Name of Problem: Enlarged prostate ; Recorder: RAVEN REILLY RN; Confirmation: Confirmed ; Classification: Patient Stated ; Code: [id number] ; Contributor System: PowerChart ; Last Updated: 07/20/2014 9:34 EDT ; Life Cycle Date: 07/20/2014 ; Life Cycle Status: Active ; Vocabulary: SNOMED CT GERD - Gastro-esophageal reflux disease (SNOMED CT :4157242789 ) Name of Problem: GERD - Gastro-esophageal reflux disease ; Recorder: RAVEN REILLY RN; Confirmation: Confirmed ; Classification: Patient Stated ; Code: [id number] ; Contributor System: PowerChart ; Last Updated: 07/20/2014 9:34 EDT ; Life Cycle Date: 07/20/2014 ; Life Cycle Status: Active ; Vocabulary: SNOMED CT Heart failure (SNOMED CT :637505232 ) Name of Problem: Heart failure ; Recorder: RAVEN REILLY RN; Confirmation: Confirmed ; Classification: Patient Stated ; Code: 719820985 ; Contributor System: PowerChart ; Last Updated: 07/20/2014 9:33 EDT ; Life Cycle Date: 07/20/2014 ; Life Cycle Status: Active ; Vocabulary: SNOMED CT Heart murmur (SNOMED CT :434206772 ) Name of Problem: Heart murmur ; Recorder: RAVEN REILLY RN; Confirmation: Confirmed ; Classification: Patient Stated ; Code: [id number] ; Contributor System: PowerChart ; Last Updated: 07/20/2014 9:33 EDT ; Life Cycle Date: 07/20/2014 ; Life Cycle Status: Active ; Vocabulary: SNOMED CT History of obstructive sleep apnea (IMO :92114623 ) Name of Problem: History of obstructive sleep apnea ; Recorder: SYSTEM, SYSTEM; Confirmation: Confirmed ; Classification: Medical ; Code: [id number] ; Last Updated: 01/20/2019 12:39 EDT ; Life Cycle Date: 01/20/2019 ; Life Cycle Status: Active ; Vocabulary: IMO Hyperlipidemia (SNOMED CT :45418583 ) Name of Problem: Hyperlipidemia ; Recorder: RAVEN REILLY RN; Confirmation: Confirmed ; Classification: Patient Stated ; Code: 98321402 ; Contributor System: PowerChart ; Last Updated: 09/03/2017 13:38 EST ; Life Cycle Date: 07/20/2014 ; Life Cycle Status: Active ; Vocabulary: SNOMED CT Hypertension (SNOMED CT :08318745 ) Name of Problem: Hypertension ; Recorder: RAVEN REILLY RN; Confirmation: Confirmed ; Classification: Patient Stated ; Code: 76707272 ; Contributor System: PowerChart ; Last Updated: 07/20/2014 9:33 EDT ; Life Cycle Date: 07/20/2014 ; Life Cycle Status: Active ; Vocabulary: SNOMED CT Impaired vision (SNOMED CT :45011821 ) Name of Problem: Impaired vision ; Recorder: RAVEN REILLY RN; Confirmation: Confirmed ; Classification: Patient Stated ; Code: 36809126 ; Contributor System: PowerChart ; Last Updated: 07/20/2014 9:32 EDT ; Life Cycle Date: 07/20/2014 ; Life Cycle Status: Active ; Vocabulary: SNOMED CT Migraine (SNOMED CT :89915533 ) Name of Problem: Migraine ; Recorder: RAVEN REILLY RN; Confirmation: Confirmed ; Classification: Patient Stated ; Code: 84133221 ; Contributor System: PowerChart ; Last Updated: 07/20/2014 9:35 EDT ; Life Cycle Date: 07/20/2014 ; Life Cycle Status: Active ; Vocabulary: SNOMED CT Stented coronary artery (SNOMED CT :1668531593 ) Name of Problem: Stented coronary artery ; Recorder: RAVEN REILLY RN; Confirmation: Confirmed ; Classification: Patient Stated ; Code: [id number] ; Contributor System: [employer] ; Last Updated: 07/20/2014 9:33 EDT ; Life Cycle Date: 07/20/2014 ; Life Cycle Status: Active ; Vocabulary: SNOMED CT Diagnoses(Active) Weakness Date: 02/05/2019 ; Diagnosis Type: Reason For Visit ; Confirmation: Complaint of ; Clinical Dx: Weakness ; Classification: Medical ; Clinical Service: Emergency medicine ; Code: PNED ; Probability: 0 ; Diagnosis Code: [id number] ED Height and Weight Height Source : Stated Height Entry Format : [place] Height, Feet : 5 ft(Converted to: 152 cm, 60 Inch) Height, Inches : 9 Inch(Converted to: 0 ft 9 Inch, 22.86 cm) Clinical Height : 175.26 cm Weight Source, ED : Critical estimated dosing weight Weight Entry Format : [place] Weight, Pounds : 175 lb Clinical Dosing Weight : 79.55 kg Body Surface Area (BSA) : 1.95 m2 Body Mass Index : 25.9 kg/m2 (HI) [place] Body Weight (IBW) : 69.73 kg Merritt Guzman, LUIS - 02/05/2019 18:55 EDT documented in this encounter Plan of Treatment Not on file documented as of this encounter Visit Diagnoses Not on filedocumented in this encounter Care Teams Assistant Engineer Relationship Specialty Start Date End Date Marielos Amaral, BOAT WASHER [address] [address] PCP - General Nurse Practitioner 08/18/23 documented as of this encounter
--- OUTSIDE RECORDS SUMMARY | 2025-05-14 20:35 | XMS_ITS | Encounter Summary ---
Author Organization [employer] ([place], [place], [place], [place]) Address [address] [place] [address] Care Team Providers Care Cut Off Worker Name Role Phone Marielos Amaral KAYE Primary Care Provider Encounter Details Date Type Department Care Team (Late st Contact Info) Description 02/06/2019 Transcribed Document [facility] [place] [address] [place] [address] ProviderHaroldo MD [address] [place] [id number] Social History Tobacco Use Types Packs/Day Years Used Date Smoking Tobacco: Never Assessed Sex and Gender Information Value Date Recorded Sex Assigned at Not on file Legal Sex Male 3:45 PM CDT Gender Identity Not on file Sexual Orientation Not on file documented as of this encounter Miscellaneous Notes * [employer]ner Conversion Note - Historical ProviderMD - 02/06/2019 12:07 AM CDT DATE OF ADMISSION: 02/05/2019 CHIEF COMPLAINT: Right-sided balance and poor control right side starting at 5 o'clock. HISTORY OF PRESENT ILLNESS: This is a 68-year-old male with history of hypertension, CAD, CABG two years ago, tobacco dependence, presenting with full control of his right side that started at 5 p.m., presented to the ER at 6 according to his . The patient had CTA and CT head and CT perfusion of the head and all were negative according to endorsement from physician head start assistant teacher ER. Patient was _seen in _ coordination with neurologist on-call, Dr. Matta, who did not recommend any tPA at this time. He denies any chest pain, shortness of breath. He tries tingling or numbness. Denies any headaches. Denies any fever or chills. REVIEW OF SYSTEMS: All systems reviewed and negative except as above. PAST MEDICAL/SURGICAL HISTORY: 1. Hypertension. 2. CAD with history of CABG. 3. Tonsillectomy. 4. Cholecystectomy. 5. Appendectomy. 6. Hernia repair. 7. Stent placement. 8. Left arm surgery. SOCIAL HISTORY: Patient is a current smoker, half pack per day. Denies alcohol or drugs. He used to drink in the past. Denies drugs. FAMILY HISTORY: Reviewed and noncontributory. MEDICATIONS: Pending reconciliation. OTHER MEDICAL HISTORY: Include diabetes mellitus type 2, BPH, GERD, cardiac murmur, migraine. PHYSICAL EXAMINATION: VITAL SIGNS: Blood pressure is 168/92, respirations 16, heart rate is 84, temperature is 98.7, saturation 98% room air. HEENT: Extraocular movements intact. No icterus. No pallor. Mucous membranes moist. NECK: Without JVD. No lymphadenopathy. CARDIOVASCULAR: S1, S2 heard. No extra sounds or murmurs. RESPIRATORY: Diminished air entry, but no adventitious sounds. GI: Abdomen is soft, nontender. No organomegaly. MUSCULOSKELETAL: No edema or clubbing. NEUROLOGICAL: Patient has diminished sensation of right upper and lower extremities and right face. In addition, he has poor coordination and abnormal right finger to nose testing and also left lower extremity seems to have abnormal findings requiring coordination testing. Gait is deferred. Strength is diminished on the right handgrip, but does not seem to be affected bilateral extremities. There is no nystagmus on examination. No facial droop. Cranial nerves intact 2 through 12. DIAGNOSTICS: Patient had EKG that showed normal sinus rhythm, no ectopy, no ST or T-wave abnormalities; they were reviewed by Dr. Phipps. His chemistry was reviewed and showed no abnormalities. His liver enzymes were normal. His lipase was normal. His troponin was negative. White count was slightly elevated at 11.4, otherwise CBC within normal. His urinalysis was essentially normal as well. His alcohol less than 3. CT scans not formally reviewed, except the CT head that was negative for acute abnormality, except for sinusitis. CT of the head and perfusion studies were done, but no report available, but per endorsement from physician head start assistant teacher, they were all negative without any obstructive lesions or abnormalities. The full report to follow. PLAN: 1. Admit for further evaluation of status and MRI of the brain and neurologic consultation. 2. Continue aspirin as patient was not taking aspirin as he stopped that taking for a while. Continue statin. Blood pressure control. 3. Stroke workup per protocol. 4. Monitor neurologic status closely. Brennan Lopes M.D. Dict: 02/06/2019 00:07:50 Trans: 02/06/2019 01:39:53 CC1: Brennan Lopes M.D. Electronically signed by Brittany, [facility] Office Supervisor Cerner at 01/24/2023 10:41 AM CDT documented in this encounter Plan of Treatment Not on file documented as of this encounter Visit Diagnoses Not on filedocumented in this encounter Care Teams Cut Off Worker Relationship Specialty Start Date End Date Marieols Amaral, KAYE [address] [phone] PCP - General Nurse Practitioner 08/18/23 documented as of this encounter
--- OUTSIDE RECORDS SUMMARY | 2025-05-14 20:35 | XMS_ITS | Encounter Summary ---
Author Organization [employer] ([place], [place], [place], [place]) Address [address] [place] [address] Care Team Providers Care Microarray Specialist Name Role Phone Marielos Amaral KAYE Primary Care Provider Encounter Details Date Type Department Care Team (Late st Contact Info) Description 10/18/2019 Transcribed Document [facility] [place] [address] [place] [address] ProviderHaroldo MD [address] [place] [address] Social History Tobacco Use Types Packs/Day Years Used Date Smoking Tobacco: Never Assessed Sex and Gender Information Value Date Recorded Sex Assigned at Not on file Legal Sex Male 3:45 PM CDT Gender Identity Not on file Sexual Orientation Not on file documented as of this encounter Miscellaneous Notes * Cerner Conversion Note - Haroldo ProviderMD - 10/18/2019 8:56 AM SANDER AND BUFFER Discharge Summary, PT Entered On: 10/18/2019 8:57 EST Performed On: 10/18/2019 8:56 EST by JACQUELYN KIM, PT Discharge Summary Reason for Discharge : Discharged from hospital Discharged to, Therapy : Home, with family care Discharge Summary Comment, PT : As of 10/17/2019: Patient was modified independent [id number] and ambulated 300' no AD with supervision secondary to patient being unsteady with turns. 1STG and 1LTG not met due to patient not ambulating 400' and still requiring assistance with mobility. JACQUELYN KIM, PT - 10/18/2019 8:56 EST Short Term Goals Ambulation STG Grid Goal #1 Device : None Distance : 400' Assist : Supervision or set-up Date to Meet : 10/22/2019 EST Goal Status : Not met JACQUELYN KIM, PT - 10/18/2019 8:56 EST Track Laying Machine Operator Goals Ambulation LTG Grid Goal #1 Device : None Distance : 400' Assist : Independent, complete Date to Meet : 10/29/2019 EST Goal Status : Not met JACQUELYN KIM, PT - 10/18/2019 8:56 EST Electronically signed by [facility], [facility] Conversion Psychologist Counseling Cerner at 01/24/2023 10:41 AM CDT documented in this encounter Plan of Treatment Not on file documented as of this encounter Visit Diagnoses Not on filedocumented in this encounter Care Teams Microarray Specialist Relationship Specialty Start Date End Date Marielos Amaral APRN [address] [address] PCP - General Nurse Practitioner 08/18/23 documented as of this encounter
--- OUTSIDE RECORDS SUMMARY | 2025-05-14 20:35 | XMS_ITS | Encounter Summary ---
Author Organization [employer] ([place], [place], [place], [place]) Address [address] [place] [address] Care Team Providers Care Creative Engagement Director Name Role Phone Marielos Amaral KAYE Primary Care Provider Encounter Details Date Type Department Care Team (Late st Contact Info) Description 02/06/2019 Transcribed Document [facility] [place] [address] [place] [address] ProviderHaroldo MD [address] [place] [phone] Social History Tobacco Use Types Packs/Day Years Used Date Smoking Tobacco: Never Assessed Sex and Gender Information Value Date Recorded Sex Assigned at Not on file Legal Sex Male 3:45 PM CDT Gender Identity Not on file Sexual Orientation Not on file documented as of this encounter Miscellaneous Notes * Cerner Conversion Note - Haroldo ProviderMD - 02/06/2019 8:04 AM CDT Consult Phone Call Documentation Entered On: 02/06/2019 8:05 EDT Performed On: 02/06/2019 8:04 EDT by OFELIA ROY Patient Driver/Sales Workers Phone Call for Consults Consult Phone Call/Page Attempt : First call Physician Requesting Consult : SAYDA TORRES RES-SYDNI Physician Requested for Consult : PRIYA JIANG MD-NEU Provider Service Notified Name : Neurology Physician Covering for Consult : PRIYA JIANG MD-NEU Date and Time Call Returned : 02/06/2019 8:02 EDT OFELIA ROY, Patient Driver/Sales Workers - 02/06/2019 8:04 EDT documented in this encounter Plan of Treatment Not on file documented as of this encounter Visit Diagnoses Not on filedocumented in this encounter Care Teams Creative Engagement Director Relationship Specialty Start Date End Date Marielos Amaral, DATA SCIENCE AND IOT MANAGER [address] [phone] PCP - General Nurse Practitioner 08/18/23 documented as of this encounter
--- OUTSIDE RECORDS SUMMARY | 2025-05-14 20:35 | XMS_ITS | Encounter Summary ---
Author Organization [employer] ([place], [place], [place], [place]) Address [address] [place] [address] Care Team Providers Care Business Development Specialist Name Role Phone Marielos Amaral KAYE Primary Care Provider Encounter Details Date Type Department Care Team (Late st Contact Info) Description 01/20/2019 Transcribed Document [facility] [place] [address] [place] [address] ProviderHaroldo MD [address] [place] [address] Social History Tobacco Use Types Packs/Day Years Used Date Smoking Tobacco: Never Assessed Sex and Gender Information Value Date Recorded Sex Assigned at Not on file Legal Sex Male 3:45 PM CDT Gender Identity Not on file Sexual Orientation Not on file documented as of this encounter Miscellaneous Notes * [employer]ner Conversion Note - Haroldo ProviderMD - 01/20/2019 2:33 PM CDT Patient Education Materials Follows: Valenzuela's Esophagus Valenzuela's esophagus occurs when the lining of the esophagus is damaged. The esophagus is the tube that carries food from the mouth to the stomach. With Valenzuela's esophagus, the lining of the esophagus gets replaced by material that is similar to the lining in the intestines. This process is called intestinal metaplasia. A small number of people with Valenzuela's esophagus develop esophageal cancer. CAUSES The exact cause of Valenzuela's esophagus is unknown. SYMPTOMS Most people with Valenzuela's esophagus do not have symptoms. However, many patients also have gastroesophageal reflux disease (GERD). GERD can cause heartburn, trouble swallowing, and a dry cough. DIAGNOSIS Valenzuela's esophagus is diagnosed by an exam called upper gastrointestinal endoscopy. A thin, flexible tube (endoscope) is passed down the esophagus. The endoscope has a light and camera on the end. Your caregiver uses the endoscope to view the inside of the esophagus. A tissue sample may also be taken and examined under a microscope (biopsy). If cancer cells are found during the biopsy, this condition is called dysplasia. TREATMENT If you have no dysplasia or low-grade dysplasia, your caregiver may recommend no treatment or only taking medicines to treat GERD. Sometimes, taking acid-blocking drugs to treat GERD helps improve the tissue affected by Valenzuela's esophagus. Your caregiver may also recommend periodic esophageal exams. If you have high-grade dysplasia, treatment may include removing the damaged parts of the esophagus. This can be done by heating, freezing, or surgically removing the tissue. In some cases, surgery may be done to remove most of the esophagus. The stomach is then attached to the remaining portion of the esophagus. HOME CARE INSTRUCTIONS ? Take acid-blocking drugs for GERD if recommended by your caregiver. ? Keep all follow-up appointments as directed by your caregiver. You may need periodic esophageal exams. SEEK IMMEDIATE MEDICAL CARE IF: ? You have chest pain. ? You have trouble swallowing. ? You vomit blood or material that looks like coffee grounds. ? Your stools are bright red or dark. Document Released: 12/12/2004 Document Revised: 03/23/2013 Document Reviewed: 12/01/2012 ExitCare? Patient Information ?2014 [employer]. This information is not intended to replace advice given to you by your health care provider. Make sure you discuss any questions you have with your health care provider. Esophagogastroduodenoscopy Esophagogastroduodenoscopy (EGD) is a procedure that is used to examine the lining of the esophagus, stomach, and first part of the small intestine (duodenum). A long, flexible, lighted tube with a camera attached (endoscope) is inserted down the throat to view these organs. This procedure is done to detect problems or abnormalities, such as inflammation, bleeding, ulcers, or growths, in order to treat them. The procedure lasts 5?20 minutes. It is usually an outpatient procedure, but it may need to be performed in a hospital in emergency cases. LET YOUR HEALTH CARE PROVIDER KNOW ABOUT: ? Any allergies you have. ? All medicines you are taking, including vitamins, herbs, eye drops, creams, and qriu-jur-nnztiiw medicines. ? Previous problems you or members of your family have had with the use of anesthetics. ? Any blood disorders you have. ? Previous surgeries you have had. ? Medical conditions you have. RISKS AND COMPLICATIONS Generally, this is a safe procedure. However, problems can occur and include: ? Infection. ? Bleeding. ? Tearing (perforation) of the esophagus, stomach, or duodenum. ? Difficulty breathing or not being able to breathe. ? Excessive sweating. ? Spasms of the larynx. ? Slowed heartbeat. ? Low blood pressure. BEFORE THE PROCEDURE ? Do not eat or drink anything after midnight on the night before the procedure or as directed by your health care provider. ? Do not take your regular medicines before the procedure if your health care provider asks you not to. Ask your health care provider about changing or stopping those medicines. ? If you wear dentures, be prepared to remove them before the procedure. ? Arrange for someone to drive you home after the procedure. PROCEDURE ? A numbing medicine (local anesthetic) may be sprayed in your throat for comfort and to stop you from gagging or coughing. ? You will have an IV tube inserted in a vein in your hand or arm. You will receive medicines and fluids through this tube. ? You will be given a medicine to relax you (sedative). ? A pain reliever will be given through the IV tube. ? A mouth guard may be placed in your mouth to protect your teeth and to keep you from biting on the endoscope. ? You will be asked to lie on your left side. ? The endoscope will be inserted down your throat and into your esophagus, stomach, and duodenum. ? Air will be put through the endoscope to allow your health care provider to clearly view the lining of your esophagus. ? The lining of your esophagus, stomach, and duodenum will be examined. During the exam, your health care provider may: ? Remove tissue to be examined under a microscope (biopsy) for inflammation, infection, or other medical problems. ? Remove growths. ? Remove objects (foreign bodies) that are stuck. ? Treat any bleeding with medicines or other devices that stop tissues from bleeding (hot cautery, clipping devices). ? Widen (dilate) or stretch narrowed areas of your esophagus and stomach. ? The endoscope will be withdrawn. AFTER THE PROCEDURE ? You will be taken to a recovery area for observation. Your blood pressure, heart rate, breathing rate, and blood oxygen level will be monitored often until the medicines you were given have worn off. ? Do not eat or drink anything until the numbing medicine has worn off and your gag reflex has returned. You may choke. ? Your health care provider should be able to discuss his or her findings with you. It will take longer to discuss the test results if any biopsies were taken. Document Released: 01/23/2006 Document Revised: 05/26/2015 Document Reviewed: 08/25/2013 ExitCare? Patient Information ?2014 [place]. This information is not intended to replace advice given to you by your health care provider. Make sure you discuss any questions you have with your health care provider. Radiology Radiofrequency Ablation for Valenzuela Esophagus Radiofrequency ablation for Valenzuela esophagus is a treatment that will help destroy and remove diseased tissue from the esophagus with radio wave energy. This will help to prevent further complications from Valenzuela esophagus. It may need to be performed up to three times before all of the diseased tissue is destroyed. LET YOUR HEALTH CARE PROVIDER KNOW ABOUT: ??? Any allergies you have. ??? All medicines you are taking, including vitamins, herbs, eye drops, creams, and pbra-ugu-zkowbiq medicines. ??? Previous problems you or members of your family have had with the use of anesthetics. ??? Any blood disorders you have. ??? Previous surgeries you have had. ??? Medical conditions you have. RISKS AND COMPLICATIONS Generally, this is a safe procedure. However, as with any procedure, problems can occur. Possible problems include: ??? Reaction to anesthesia or sedation. ??? Damage to surrounding nerves, tissues, or structures. ??? Infection. ??? Blood clot. ??? Residual diseased tissue (rare). ??? Narrowing of the esophagus (stricture) (rare). BEFORE THE PROCEDURE Follow instructions before your procedure to avoid problems. Steps before your procedure may include: ??? Physical exam and medical history. ??? Endoscopic ultrasonography of your esophagus. You may be asked to: ??? Take specific medicines to reduce acid in your stomach for several days before and after the procedure. ??? Stop taking certain medicines, such as blood thinners (including aspirin), for 1 week before your procedure. ??? Stop eating and drinking after midnight the night before the procedure. ??? Quit smoking if you smoke. ??? Arrange for a ride home after the surgery. ??? Arrange for someone to help you at home during your recovery. PROCEDURE ??? You will be given a medicine to relax you (sedative) or medicine to make you sleep (general anesthetic). ??? Your surgeon will insert a thin, tiny, tube-like device called an endoscope into your esophagus. ??? The endoscope will have a balloon catheter attached to it. The balloon will be inflated to the size of your esophagus near the diseased tissue. This will help your surgeon find out the diameter of your esophagus near the area to be treated. ??? An ablation catheter will be inserted into your esophagus. ??? The catheter will carefully and quickly deliver heat energy to areas of diseased tissue. It takes just seconds to destroy a thin layer of tissue. ??? The process will be repeated for more than one area of diseased tissue. The entire procedure takes about 30 minutes. AFTER THE PROCEDURE ??? You will be taken to the recovery area. ??? You will be frequently monitored until you are awake and breathing normally. ??? You will be given pain medicine as needed. ??? Once your vital signs are normal, you will be allowed to go home. This information is not intended to replace advice given to you by your health care provider. Make sure you discuss any questions you have with your health care provider. Document Released: 07/13/2014 Document Revised: 10/13/2015 Document Reviewed: 07/13/2014 [employer] Patient Education ? 2017 [employer]. documented in this encounter Plan of Treatment Not on file documented as of this encounter Visit Diagnoses Not on filedocumented in this encounter Care Teams Business Development Specialist Relationship Specialty Start Date End Date Marielos Amaral APRN [address] [id number] PCP - General Nurse Practitioner 08/18/23 documented as of this encounter
--- OUTSIDE RECORDS SUMMARY | 2025-05-14 20:35 | XMS_ITS | Encounter Summary ---
Author Organization [employer] ([place], [place], [place], [place]) Address [address] [place] [address] Care Team Providers Care Software Firmware Engineer Name Role Phone Marielos Amaral ACQUISITIONS EDITOR Primary Care Provider [phone] Encounter Details Date Type Department Care Team (Late st Contact Info) Description 01/20/2019 Transcribed Document [facility] [place] Family Medicine [address] [place] [address] ProviderHaroldo MD [address] [place] [address] Social History Tobacco Use Types Packs/Day Years Used Date Smoking Tobacco: Never Assessed Sex and Gender Information Value Date Recorded Sex Assigned at Not on file Legal Sex Male 3:45 PM CDT Gender Identity Not on file Sexual Orientation Not on file documented as of this encounter Miscellaneous Notes * Cerner Conversion Note - Haroldo ProviderMD - 01/20/2019 2:37 PM CDT [address] [address] ELINA ZACKARY COOK :1950 Visit Time:01/20/2019 What to do next Instructions From Your Care Team Diet after Discharge: Full liquid diet, _, _ Fluid Restriction after Discharge: _ Activity after Discharge: As tolerated, _, _ Lifting Restrictions: _ Weight Bearing: _ Bedrest: _ Driving after Discharge: Do not drive for 24 hours May Return to Work/School: Showering/Bathing: May shower, _ Notify Provider of: Any problems or concerns. Wound/Incision Care after Discharge: _, _ Medical Equipment for Home Use: Home Health Services: Community Services: Follow-Up Appointments Follow Up with PRINCESS LOPEZ MD-[facility] When Only if needed Comments Office to call with appoint/instructionsFollow up with Dr Lopez as needed Where: [address] [place] [address]- Medications What How Much When Instructions Next Dose Unchanged amiodarone (amiodarone 200 mg oral tablet) See instructions 1 Tab by mouth twice daily for 14 days then 1 tab by mouth daily Unchanged aspirin (aspirin 81 mg oral delayed release tablet) 1 Tablet(s) Oral Every Day Unchanged atorvastatin (Lipitor 40 mg oral tablet) 1 Tablet(s) Oral At Bedtime Unchanged docusate (Colace 100 mg oral capsule) 1 Capsule(s) Oral Two Times A Day Unchanged glimepiride (glimepiride 2 mg oral tablet) 1 Tablet(s) Oral Two Times A Day Unchanged lisinopril (lisinopril 10 mg oral tablet) 1 Tablet(s) Oral Every Day Unchanged metFORMIN (metFORMIN 1000 mg oral tablet) 1 Tablet(s) Oral Two Times A Day Unchanged metoprolol (Lopressor 50 mg oral tablet) 0.5 Tablet(s) Oral Every 12 hours Unchanged ranitidine (Zantac 300 oral tablet) 1 Tablet(s) Oral Two Times A Day Unchanged tamsulosin (Flomax 0.4 mg oral capsule) 1 Capsule(s) Oral Every Day What How Much When Comments Stop Taking warfarin (Coumadin 4 mg oral tablet) 1 Tablet(s) Oral Every Day Take your medications faithfully. [...] and medications per pharmacy guidance. Education Materials Valenzuela's Esophagus Valenzuela's esophagus occurs when the [...] esophageal cancer. CAUSES The exact cause of Valenuzela's esophagus is unknown. SYMPTOMS Most people with [...] portion of the esophagus. HOME CARE INSTRUCTIONS ???Take acid-blocking drugs for GERD if recommended by your caregiver. ???Keep all follow-up appointments as directed by your caregiver. You may need periodic esophageal exams. SEEK IMMEDIATE MEDICAL CARE IF: ???You have chest pain. ???You have trouble swallowing. ???You vomit blood or material that looks like coffee grounds. ???Your stools are bright red or dark. Document Released: 12/12/2004 Document Revised: 03/23/2013 Document Reviewed: 12/01/2012 ExitCare?? Patient Information ??2015 [employer]. This information is not intended to replace [...] order to treat them. The procedure lasts 5???20 minutes. It is usually an outpatient procedure, but it may need to be performed in a hospital in emergency cases. LET YOUR HEALTH CARE PROVIDER KNOW ABOUT: ???Any allergies you have. ???All medicines you are taking, including vitamins, herbs, eye drops, creams, and ecsb-amz-ndetjxr medicines. ???Previous problems you or members of your family have had with the use of anesthetics. ???Any blood disorders you have. ???Previous surgeries you have had. ???Medical conditions you have. RISKS AND COMPLICATIONS Generally, this is a safe procedure. However, problems can occur and include: ???Infection. ???Bleeding. ???Tearing (perforation) of the esophagus, stomach, or duodenum. ???Difficulty breathing or not being able to breathe. ???Excessive sweating. ???Spasms of the larynx. ???Slowed heartbeat. ???Low blood pressure. BEFORE THE PROCEDURE ???Do not eat or drink anything after midnight on the night before the procedure or as directed by your health care provider. ???Do not take your regular medicines before the procedure if your health care provider asks you not to. Ask your health care provider about changing or stopping those medicines. ???If you wear dentures, be prepared to remove them before the procedure. ???Arrange for someone to drive you home after the procedure. PROCEDURE ???A numbing medicine (local anesthetic) may be sprayed in your throat for comfort and to stop you from gagging or coughing. ???You will have an IV tube inserted in a vein in your hand or arm. You will receive medicines and fluids through this tube. ???You will be given a medicine to relax you (sedative). ???A pain reliever will be given through the IV tube. ???A mouth guard may be placed in your mouth to protect your teeth and to keep you from biting on the endoscope. ???You will be asked to lie on your left side. ???The endoscope will be inserted down your throat and into your esophagus, stomach, and duodenum. ???Air will be put through the endoscope to allow your health care provider to clearly view the lining of your esophagus. ???The lining of your esophagus, stomach, and duodenum will be examined. During the exam, your health care provider may: ?Remove tissue to be examined under a microscope (biopsy) for inflammation, infection, or other medical problems. ?Remove growths. ?Remove objects (foreign bodies) that are stuck. ?Treat any bleeding with medicines or other devices that stop tissues from bleeding (hot cautery, clipping devices). ?Widen (dilate) or stretch narrowed areas of your esophagus and stomach. ???The endoscope will be withdrawn. AFTER THE PROCEDURE ???You will be taken to a recovery area for observation. Your blood pressure, heart rate, breathing rate, and blood oxygen level will be monitored often until the medicines you were given have worn off. ???Do not eat or drink anything until the numbing medicine has worn off and your gag reflex has returned. You may choke. ???Your health care provider should be able to discuss his or her findings with you. It will take longer to discuss the test results if any biopsies were taken. Document Released: 01/23/2006 Document Revised: 05/26/2015 Document Reviewed: 08/25/2013 ExitCare?? Patient Information ??2015 [employer]. This information is not intended to replace advice given to you by your health care provider. Make sure you discuss any questions you have with your health care provider. Radiofrequency Ablation for Valenzuela Esophagus Radiofrequency ablation [...] including vitamins, herbs, eye drops, creams, and qidd-wbb-ogvxnnj medicines. ??? Previous problems you or members [...] 07/13/2014 Document Revised: 10/13/2015 Document Reviewed: 07/13/2014 [employer] Interactive Patient Education ?? 2017 [employer]. Emergency Awareness and Preventative Care STROKE is [...] Assistance with quitting is available by contacting 3-234-PFGB-NOW. This is a free resource providing counseling, [...] Be sure to sign up for the [facility] patient portal, which gives you 28/04 access to your medical information ??? including these discharge instructions ??? using your computer, smartphone, or tablet. Just go to [employer] to get started. Questions? Call . Test Results Laboratory or Other Results This Visit (last charted value for your 01/20/2019 visit) General Chemistry 01/20/19 12:42:00 Glucose POC2: 182 mg/dL -- Normal range between ( 70 and 110 ) Patient Name:ZACKARY ANTOINE I have received this information and was given the opportunity to ask questions. Patient/Electronics Lead Name: Patient/Electronics Lead Signature: Relationship to Patient: Clinician/Hospital Electronics Lead Signature: Date: documented in this encounter Plan of Treatment Not on file documented as of this encounter Visit Diagnoses Not on filedocumented in this encounter Care Teams Software Firmware Engineer Relationship Specialty Start Date End Date Marielos Amaral, ACQUISITIONS EDITOR [address] [phone] PCP - General Nurse Practitioner 08/18/23 documented as of this encounter
--- OUTSIDE RECORDS SUMMARY | 2025-05-14 20:35 | XMS_ITS | Encounter Summary ---
Author Organization [employer] ([place], [place], [place], [place]) Address [address] [place] [address] Care Team Providers Care Site Promotion Agent Name Role Phone Marielos Amaral KAYE Primary Care Provider Encounter Details Date Type Department Care Team (Late st Contact Info) Description 02/06/2019 Transcribed Document [facility] [place] Family Medicine [address] [place] [address] ProviderHaroldo MD [address] [place] [address] Social History Tobacco Use Types Packs/Day Years Used Date Smoking Tobacco: Never Assessed Sex and Gender Information Value Date Recorded Sex Assigned at Not on file Legal Sex Male 3:45 PM CDT Gender Identity Not on file Sexual Orientation Not on file documented as of this encounter Miscellaneous Notes * Cerner Conversion Note - Haroldo ProviderMD - 02/06/2019 10:33 AM CDT Education-Diabetes Topics Entered On: 02/06/2019 11:34 EDT Performed On: 02/06/2019 10:33 EDT by Lina Chaudhary Rn-Flex Team Teaching/Learning Assessment Barriers To Learning : None evident Individuals Taught : Patient Readiness to Learn : Lina March Rn-Flex Team - 02/06/2019 11:33 EDT Education, Diabetes Diabetes Education Grid Symptom Identification & Action Plan *Q : Verbalizes understanding Acute Complications : Verbalizes understanding Blood Glucose Monitoring : Verbalizes understanding Chronic Complications : Verbalizes understanding Community Resources : Verbalizes understanding Compliance Strategies : Verbalizes understanding Coping/Care Regimen : Verbalizes understanding Cost Issues : Verbalizes understanding Disease Process : Verbalizes understanding DKA Signs and Symptoms : Verbalizes understanding Follow-up Care : Verbalizes understanding Foot Care : Verbalizes understanding Gestational Management : Verbalizes understanding Infection Control : Verbalizes understanding Insulin Administration : Verbalizes understanding Insulin Types/Onset/Duration : Verbalizes understanding Medical Alert Band : Verbalizes understanding Medication Storage : Verbalizes understanding Medication Dosage/Route : Verbalizes understanding Medication Generic/Brand : Verbalizes understanding Medication Precautions : Verbalizes understanding Medication Special Administration : Verbalizes understanding Medication, Preadministration : Verbalizes understanding Monitoring Results : Verbalizes understanding Nutritional Management/Exercise : Verbalizes understanding Oral Agents : Verbalizes understanding Physical Activity : Verbalizes understanding Post-Contrast Instructions : Verbalizes understanding Lina Chaudhary Rn-Flex Team - 02/06/2019 11:33 EDT documented in this encounter Plan of Treatment Not on file documented as of this encounter Visit Diagnoses Not on filedocumented in this encounter Care Teams Site Promotion Agent Relationship Specialty Start Date End Date Marielos Amaral, RESPIRATORY THERAPY TECHNICIAN [address] [address] PCP - General Nurse Practitioner 08/18/23 documented as of this encounter
--- OUTSIDE RECORDS SUMMARY | 2025-05-14 20:35 | XMS_ITS | Encounter Summary ---
Author Organization [employer] ([place], [place], [place], [place]) Address [address] [place] [address] Care Team Providers Care Product Grader Name Role Phone Marielos Amaral APRN Primary Care Provider Encounter Details Date Type Department Care Team (Late st Contact Info) Description 01/20/2019 Transcribed Document [facility] [place] Family Medicine [address] [place] [address] ProviderHaroldo MD [address] [place] [address] Social History Tobacco Use Types Packs/Day Years Used Date Smoking Tobacco: Never Assessed Sex and Gender Information Value Date Recorded Sex Assigned at Not on file Legal Sex Male 3:45 PM CDT Gender Identity Not on file Sexual Orientation Not on file documented as of this encounter Miscellaneous Notes * Cerner Conversion Note - Haroldo ProviderMD - 01/20/2019 3:00 PM CDT [facility] PreOp Summary Primary Physician: PRINCESS DOCKERY MD-[facility] Finalized Date/Time: 01/20/19 12:53:13 Pt. Name: ELINAZACKARY /Sex: 1950 Male Med Rec #: [id number] Physician: PRINCESS DOCKERY MD-[facility] Financial #: [id number] Pt. Type: O Room/Bed: N/18 Admit/Disch: 01/20/19 12:15:00 - Institution: [facility] PreOp Case Times Entry 1 In Preop 01/20/19 12:28:00 Ready for Holding n/a Room Patient Ready for 01/20/19 12:48:00 Surgery Patient Out of Preop 01/20/19 12:50:00 Patient Out of n/a Holding Room [facility] PreOp Case Times Audit 01/20/19 12:48:25 Review Manager: MILLERSH Modifier: MILLERSH <+> 1 Patient Out of Preop <+> 1 Patient Ready for Surgery Finalized By: CORRINA QUINTANA, RN Document Signatures Signed By: CORRINA QUINTANA RN 01/20/19 12:53 documented in this encounter Plan of Treatment Not on file documented as of this encounter Visit Diagnoses Not on filedocumented in this encounter Care Teams Product Grader Relationship Specialty Start Date End Date Marielos Amaral, KAYE [address] [phone] PCP - General Nurse Practitioner 08/18/23 documented as of this encounter
--- OUTSIDE RECORDS SUMMARY | 2025-05-14 20:35 | XMS_ITS | Encounter Summary ---
Author Organization [employer] ([place], [place], [place], [place]) Address [address] [place] [address] Care Team Providers Care Chicken Hatchery Helper Name Role Phone Marielos Amaral KAYE Primary Care Provider [phone] Encounter Details Date Type Department Care Team (Late st Contact Info) Description 10/17/2019 Transcribed Document [facility] [place] Family Medicine [address] [place] [address] ProviderHaroldo MD [address] [place] [address] Social History Tobacco Use Types Packs/Day Years Used Date Smoking Tobacco: Never Assessed Sex and Gender Information Value Date Recorded Sex Assigned at Not on file Legal Sex Male 3:45 PM CDT Gender Identity Not on file Sexual Orientation Not on file documented as of this encounter Miscellaneous Notes * Cerner Conversion Note - Haroldo ProviderMD - 10/17/2019 2:00 AM DIRECTOR OF COLLECTIONS Copper Tapper Details Entered On: 10/17/2019 4:54 EST Performed On: 10/17/2019 2:00 EST by Vanessa Blake RN Order Details Transport Mode Order Detail : Wheelchair Isolation Precautions Order Detail : Standard Precautions Order Detail : N/A IV Order Detail : 1 Oxygen Order Detail : 0 Nurse Collect Order Detail : 1 Lift/Transfer : Independent Central Line Order Detail : No Room Service : Appropriate Arterial Line : No Vanessa Blake RN - 10/17/2019 4:53 EST Electronically signed by Brittany [facility] Conversion Transition Social Worker Cerner at 01/24/2023 10:28 AM CDT documented in this encounter Plan of Treatment Not on file documented as of this encounter Visit Diagnoses Not on filedocumented in this encounter Care Teams Chicken Hatchery Helper Relationship Specialty Start Date End Date Marielos Amaral, KAYE [address] [phone] PCP - General Nurse Practitioner 08/18/23 documented as of this encounter
--- OUTSIDE RECORDS SUMMARY | 2025-05-14 20:35 | XMS_ITS | Encounter Summary ---
Author Organization [employer] ([place], [place], [place], [place]) Address [address] [place] [address] Care Team Providers Care Metal Spinner Name Role Phone Marielos Amaral APRN Primary Care Provider Encounter Details Date Type Department Care Team (Late st Contact Info) Description 04/12/2020 Transcribed Document [facility] [place] Family Medicine [address] [place] [address] ProviderHaroldo MD [address] [place] [address] Social History Tobacco Use Types Packs/Day Years Used Date Smoking Tobacco: Never Assessed Sex and Gender Information Value Date Recorded Sex Assigned at Not on file Legal Sex Male 3:45 PM CDT Gender Identity Not on file Sexual Orientation Not on file documented as of this encounter Miscellaneous Notes * Cerner Conversion Note - Haroldo ProviderMD - 04/12/2020 7:30 AM CDT [facility] PreOp Summary Primary Physician: PRINCESS DOCKERY MD-[facility] Finalized Date/Time: 04/12/20 07:32:11 Pt. Name: ELINADEION JOYCE BrittB./Sex: 1950 Male Med Rec #: [id number] Physician: PRINCESS DOCKERY MD-[facility] Financial #: [id number] Pt. Type: E Room/Bed: [facility] [place]/ Admit/Disch: 04/12/20 06:32:00 - Institution: [facility] PreOp Case Times Entry 1 In Preop 04/12/20 06:53:00 Ready for Holding n/a Room Patient Ready for n/a Surgery Patient Out of Preop 04/12/20 07:20:00 Patient Out of n/a Holding Room [facility] PreOp Case Times Audit 04/12/20 07:32:09 Sweatband Shaper: [id number] Modifier: [id number] <+> 1 Patient Out of Preop Finalized By: Roxana Brady, RN Document Signatures Signed By: Roxana Brady, LUIS 04/12/20 07:32 documented in this encounter Plan of Treatment Not on file documented as of this encounter Visit Diagnoses Not on filedocumented in this encounter Care Teams Metal Spinner Relationship Specialty Start Date End Date Amaral Marielos, SCHOOL YEAR NANNY [address] [address] PCP - General Nurse Practitioner 08/18/23 documented as of this encounter
--- OUTSIDE RECORDS SUMMARY | 2025-05-14 20:35 | XMS_ITS | Encounter Summary ---
Author Organization [employer] ([place], [place], [place], [place]) Address [address] [place] [address] Care Team Providers Care Tree Trimming Supervisor Name Role Phone Marielos Amaral KAYE Primary Care Provider Encounter Details Date Type Department Care Team (Late st Contact Info) Description 02/06/2019 Transcribed Document [facility] [place] Family Medicine [facility] [place] [address] ProviderHaroldo MD [address] [place] [address] Social History Tobacco Use Types Packs/Day Years Used Date Smoking Tobacco: Never Assessed Sex and Gender Information Value Date Recorded Sex Assigned at Not on file Legal Sex Male 3:45 PM CDT Gender Identity Not on file Sexual Orientation Not on file documented as of this encounter Miscellaneous Notes * Cerner Conversion Note - Haroldo ProviderMD - 02/06/2019 12:12 AM CDT Admission History, Adult Entered On: 02/06/2019 10:06 EDT Performed On: 02/06/2019 0:12 EDT by Lina Chaudhary Rn-Flex Team Advance Directive Patient has Advance Directive *Q : No, patient refuses Advance Directive information Lina Chaudhary Rn-Flex Team - 02/06/2019 9:58 EDT Anesthesia/Transfusion History Family History of Anesthesia Reaction : Unknown Transfusion History : No prior anesthesia Family History of Anesthesia Reaction : None, Unknown Intubation History : Unknown Lina Chaudhary Rn-Flex Team - 02/06/2019 9:58 EDT Functional Assessment Living Situation : Home Current Home Treatments : CPAP Lina Chaudhary Rn-Flex Team - 02/06/2019 9:58 EDT General Info Preferred Name : Clint Mode of Arrival on Unit : Ambulatory Legal Guardian : Unaccompanied Support Person/Patient Cash Management Clerk : Yes Support Person/Pt Rep Name : Enriqueta - Contact Password : peanut Support Person/Pt Rep Contact Information : [phone] Want Family/Rep/Phys Notified of Admit : No Emergency Contact #1 : Enriqueta Carrasco Emergency Contact #1 Emergency Contact #1 Relationship : Emergency Contact #2 : January Jet Emergency Contact #2 Emergency Contact #2 Relationship : daughter Chief Complaint : pt here c/o right shoulder pain and weakness to right arm and loss of balance card table attendant strength equal bilaterally decreased sensation to right arm and right leg no facial droop or slurred speech equal bilateral lower extremities Information Obtained From : Patient Primary Language : Belizean Communication Barrier : None Lina Chaudhary Rn-Flex Team - 02/06/2019 9:58 EDT Fall Risk Scales ABCs Fall Injury Risk Identification : None STARK Hx Falls Immediate/Within 3 Months : No Stark Secondary Diagnosis : Yes STARK Use of Ambulatory Aid : Bed rest/Nurse assist STARK IV Therapy or IV Access : Yes Madai Gait/Transferring : Normal, bedrest, immobile Stark Mental Status : Oriented to own ability Stark Fall Risk Score : 35 STARK Fall Scale Risk Level : 25-45 Medium Risk [place] Fall Interventions : Adequate lighting, Assistive devices within reach, Bed in low position, Call device within reach, Fall prevention handout/education per facility policy, Frequent orientation to call device, Frequent orientation to surroundings, Hourly comfort/safety rounds, Non-slip footwear, Personal items within reach, Reinforced to call for assistance before getting out of bed, Room free of clutter/spills, Upper side-rails up, Wheels locked, Wires/Cords secured Lina Chaudhary Rn-Flex Team - 02/06/2019 9:58 EDT Health Histories Smoking Status : 10 or more cigarettes (1/2 pack or more)/day in last 30 days Smokeless Tobacco Status : Never Desires Tobacco Cessation Medication : No Reason for No Tobacco Cessation Medication : Refuses FDA approved medications Lina Chaudhary Rn-Flex Team - 02/06/2019 9:58 EDT Social History (As Of: 02/06/2019 10:06:38 EDT) Tobacco: Use in Last 12 Months: Cigarettes. Smoking Status Current every day smoker. Years of Use: 46. Packs/Tins Daily: .5. (Last Updated: 07/20/2014 09:37:44 EDT by RAVEN REILLY RN) Smoking Status Current every day smoker. Five or more cigarettes per day Smoking Frequency Within Last 30 Days. Use in Last 12 Months: No. Years of Use: 50. Packs/Tins Daily: 1. Last Used: 02/2017. Second Hand Smoke Exposure: Yes. Yes Smokeless Tobacco Use in Last 30 Days. None Smokeless Tobacco Use History. (Last Updated: 02/07/2017 12:26:55 EDT by Jack Aldana RN) Alcohol: Alcohol Use History No. Use in Last 12 Months: No. (Last Updated: 01/20/2019 12:42:05 EDT by CORRINA QUINTANA RN) Substance Abuse: Drug Use Hx: No. Use in Last 12 Months: No. (Last Updated: 01/20/2019 12:43:06 EDT by CORRINA QUINTANA RN) Nutrition/Health: Regular, Diabetic, Wants to lose weight: No. Sleeping concerns: No. Feels highly stressed: No. (Last Updated: 01/20/2019 12:42:45 EDT by CORRINA QUINTANA RN) Height and Weight, Clinical Dosing Height Source : Stated Height Entry Format : [place] Height, Feet : 5 ft(Converted to: 152 cm, 60 Inch) Height, Inches : 9 Inch(Converted to: 0 ft 9 Inch, 22.86 cm) Clinical Height : 175.26 cm Weight Source : Standing scale Weight Entry Format : [place] Clinical Dosing Weight : 79.55 kg Weight, Pounds : 175 lb Body Surface Area (BSA) : 1.95 m2 Body Mass Index : 25.9 kg/m2 (HI) [place] Body Weight : 70 kg Lina Chaudhary Rn-Flex Team - 02/06/2019 9:58 EDT Infectious Disease History Infectious Disease History : Chicken pox/Shingles, Influenza, Measles, Mumps, Rubella Isolation Needed : Standard Fever/Chills Last 48 Hours : No Travel To Regions with Travel Advisories : No Travel Outside [place].S. Within Last 30 Days : No Contact With Traveler to Advisory Region : No Tuberculosis Symptoms : None Lina Chaudhary Rn-Flex Team - 02/06/2019 9:58 EDT Influenza Vaccine Asmt, Adult Previous Vaccines from Immunization Schedule : Previous Vaccines and Immunizations pneumococcal 23-polyvalent vaccine: 0.5 mL (02/16/17 11:14:00) Influenza Immunization, Current Season : Yes Lina Chaudhary Rn-Flex Team - 02/06/2019 9:58 EDT Pneumococcal Vaccine Previous Vaccines from Immunization Schedule : Previous Vaccines and Immunizations pneumococcal 23-polyvalent vaccine: 0.5 mL (02/16/17 11:14:00) Pneumonia Immunization Received : Yes Pneumonia Immunization Date : 07/06/2017 EDT Lina Chaudhary Rn-Flex Team - 02/06/2019 9:58 EDT Nutrition History Adaptive Feeding Equipment : Regular Oral Medication Administration : By mouth Eating Poorly Due to Decreased Appetite : No Unplanned Weight Loss in Past 3-6 Months : No Malnutrition Screening Tool Total(mal) : 0 Malnutrition Screening Tool Risk Level : Patient not at risk Lina Chaudhary Rn-Flex Team - 02/06/2019 9:58 EDT Psychosocial History Does Someone Depend on You for Care? : No Chronic/Terminal Illness w/Freq Visits : No Do You Have a History of the Following? : Patient denies history Currently in Unsafe Situation : No Tried to Harm Yourself in the Past? : No Thoughts of Harming/Killing Yourself : No Lina Chaudhary Rn-Flex Team - 02/06/2019 9:58 EDT Sleep Apnea Risk Assmt BiPAP/CPAP Ordered for Home Use : Yes Hx of Obstructive Sleep Apnea Diagnosis : Yes BiPAP/CPAP Used at Home : Yes Age over 50 Years Old : Yes Gender Male : Yes Lina Chaudhary Rn-Flex Team - 02/06/2019 9:58 EDT Valuables and Belongings Valuables and Belongings : Clothing Clothing : Common streetwear Clothing Disposition : Bedside Lina Chaudhary Rn-Flex Team - 02/06/2019 9:58 EDT documented in this encounter Plan of Treatment Not on file documented as of this encounter Visit Diagnoses Not on filedocumented in this encounter Care Teams Tree Trimming Supervisor Relationship Specialty Start Date End Date Marielos Amaral, MATHEMATICS IMPROVEMENT TEACHER [address] [place] [address] PCP - General Nurse Practitioner 08/18/23 documented as of this encounter
--- OUTSIDE RECORDS SUMMARY | 2025-05-14 20:35 | XMS_ITS | Encounter Summary ---
Author Organization [employer] ([place], [place], [place], [place]) Address [address] [place] [address] Care Team Providers Care Aircraft Hydraulic Equipment Mechanic Name Role Phone Marielos Amaral KAYE Primary Care Provider Encounter Details Date Type Department Care Team (Late st Contact Info) Description 10/17/2019 Transcribed Document [facility] [place] Family Medicine [address] [place] [address] ProviderHaroldo MD [address] [place] [address] Social History Tobacco Use Types Packs/Day Years Used Date Smoking Tobacco: Never Assessed Sex and Gender Information Value Date Recorded Sex Assigned at Not on file Legal Sex Male 3:45 PM CDT Gender Identity Not on file Sexual Orientation Not on file documented as of this encounter Miscellaneous Notes * Cerner Conversion Note - Haroldo ProviderMD - 10/17/2019 5:00 AM GAS PUMPING STATION SUPERVISOR Chart Check - Review Order Profile Entered On: 10/17/2019 4:54 EST Performed On: 10/17/2019 5:00 EST by Vanessa Blake RN Chart Check Powerplans Initiated/Discontinued as Appropriate : Yes All Active Orders Reviewed : Yes Vanessa Blake RN - 10/17/2019 4:54 EST Electronically signed by Brittany [facility] Conversion [employer] Cerner at 01/24/2023 10:33 AM CDT documented in this encounter Plan of Treatment Not on file documented as of this encounter Visit Diagnoses Not on filedocumented in this encounter Care Teams Aircraft Hydraulic Equipment Mechanic Relationship Specialty Start Date End Date Marielos Amaral, LOADERS [address] [place] [address] PCP - General Nurse Practitioner 08/18/23 documented as of this encounter
--- OUTSIDE RECORDS SUMMARY | 2025-05-14 20:35 | XMS_ITS | Encounter Summary ---
Author Organization [employer] ([place], [place], [place], [place]) Address [address] [place] [address] Care Team Providers Care Oven Dumper Name Role Phone Marielos Amaral KAYE Primary Care Provider Encounter Details Date Type Department Care Team (Late st Contact Info) Description 10/17/2019 Transcribed Document [facility] [place] Family Medicine [address] [place] [address] ProviderHaroldo MD [address] [place] [address] Social History Tobacco Use Types Packs/Day Years Used Date Smoking Tobacco: Never Assessed Sex and Gender Information Value Date Recorded Sex Assigned at Not on file Legal Sex Male 3:45 PM CDT Gender Identity Not on file Sexual Orientation Not on file documented as of this encounter Miscellaneous Notes * Cerner Conversion Note - Haroldo ProviderMD - 10/17/2019 11:41 AM CUSTOMER SALES REPRESENTATIVE Final Discharge Planning Entered On: 10/17/2019 11:42 EST Performed On: 10/17/2019 11:41 EST by HARITHA BARRIOS Rn-Barrel Loader And Cleaner Final Discharge Planning Discharge Arrangements : Patient Post-Acute Information Patient Name: ZACKARY ANTOINE Gender: Male : [birth year] Age: 68 Years No Post-Acute Placement(s) Listed No Post-Acute Service(s) Listed No [place] Referral(s) Listed Important Medicare Message Reviewed With : Patient Important Medicare Message Reviewed D/T : 10/17/2019 11:40 EST Follow Up Appointment Scheduled : No Discharge To Care Management : Home/Residential/Senior Care or Self Care - HARITHA BARRIOS Rn-Barrel Loader And Cleaner - 10/17/2019 11:41 EST Final Narrative Note Final Narrative Note : Transport home with spouse; unable to make f/u appt on weekend; pt verbalized he will contact his PCP to make appt. HARITHA BARRIOS Rn-Barrel Loader And Cleaner - 10/17/2019 11:41 EST documented in this encounter Plan of Treatment Not on file documented as of this encounter Visit Diagnoses Not on filedocumented in this encounter Care Teams Oven Dumper Relationship Specialty Start Date End Date Marielos Amaral APRN [address] [address] PCP - General Nurse Practitioner 08/18/23 documented as of this encounter
--- OUTSIDE RECORDS SUMMARY | 2025-05-14 20:35 | XMS_ITS | Encounter Summary ---
Author Organization [employer] ([place], [place], [place], [place]) Address [address] [place] [address] Care Team Providers Care Hydro Plant Operator Name Role Phone Marielos Amaral APRN Primary Care Provider [phone] Encounter Details Date Type Department Care Team (Late st Contact Info) Description 01/20/2019 Transcribed Document [facility] [place] Family Medicine [address] [place] [address] ProviderHaroldo MD [address] [place] [address] Social History Tobacco Use Types Packs/Day Years Used Date Smoking Tobacco: Never Assessed Sex and Gender Information Value Date Recorded Sex Assigned at Not on file Legal Sex Male 3:45 PM CDT Gender Identity Not on file Sexual Orientation Not on file documented as of this encounter Miscellaneous Notes * Cerner Conversion Note - Haroldo ProviderMD - 01/20/2019 2:12 PM CDT [facility] IntraOp Summary Primary Physician: PRINCESS DOCKERY MD-GAE Finalized Date/Time: 01/20/19 14:27:04 Pt. Name: ELINADEION /Sex: 1950 Male Med Rec #: [id number] Physician: PRINCESS DOCKERY MD-GAE Financial #: [id number] Pt. Type: O Room/Bed: N/18 Admit/Disch: 01/20/19 12:15:00 - Institution: [facility] [place] Endo - Case Attendance Entry 1 Entry 2 Entry 3 Case Attendee PRINCESS DOCKERY, Ivone Humphreys, BRYANT BRADY, BERRY PLANTER KRIS Role Performed Surgeon/Proceduralist, Ship Ceiler, First BERRY PLANTER/Nurse Motor Block Mechanic First Time In 01/20/19 14:08:00 01/20/19 14:08:00 01/20/19 14:08:00 Time Out 01/20/19 14:28:00 01/20/19 14:28:00 01/20/19 14:28:00 Procedure EGD w Radiofrequency EGD w Radiofrequency EGD w Radiofrequency Ablation Ablation Ablation Other Attendee Superficial Wound Closed By: Last Modified By: Ivone Humphreys, Ivone Sanders, Ivone Sanders, LUIS 01/20/19 14:24:59 01/20/19 14:24:59 01/20/19 14:24:59 Entry 4 Entry 5 Case Attendee GISSELLE ESPINOZA, ATTENDEE Role Performed Scrub, First Other Time In 01/20/19 14:08:00 01/20/19 14:09:00 Time Out 01/20/19 14:28:00 01/20/19 14:28:00 Procedure EGD w Radiofrequency EGD w Radiofrequency Ablation Ablation Other Attendee Superficial Wound Closed By: Last Modified By: Ivone Humphreys, Ivone Sanders, LUIS 01/20/19 14:24:59 01/20/19 14:24:59 [facility] Endo - Case Attendance Audit 01/20/19 14:24:59 Dental Assisting Instructor: CHASKNEA Modifier: BICKNEA 1 <+> Time Out 1 <*> Procedure EGD w Radiofrequency Ablation 2 <+> Time Out 2 <*> Procedure EGD w Radiofrequency Ablation 3 <+> Time Out 3 <*> Procedure EGD w Radiofrequency Ablation 4 <+> Time Out 4 <*> Procedure EGD w Radiofrequency Ablation 5 <+> Time Out 5 <*> Procedure EGD w Radiofrequency Ablation 01/20/19 14:09:48 Dental Assisting Instructor: BICKNEA Modifier: BICKNEA <+> 1 Procedure 2 <*> Procedure EGD w Radiofrequency Ablation 3 <*> Procedure EGD w Radiofrequency Ablation 4 <*> Procedure EGD w Radiofrequency Ablation 5 <*> Procedure EGD w Radiofrequency Ablation [facility] - Case Times Entry 1 Patient In Room Time 01/20/19 14:08:00 Out Room Time 01/20/19 14:28:00 Anesthesia Start Time 01/20/19 14:08:00 Stop Time 01/20/19 14:24:00 Anesthesia Ready 01/20/19 14:12:00 Surgery / Procedure Times Start Time 01/20/19 14:12:00 Stop Time 01/20/19 14:24:00 Last Modified By: Ivone Humphreys RN 01/20/19 14:24:56 [facility] - Case Times Audit 01/20/19 14:24:56 Dental Assisting Instructor: BICKNEA Modifier: BICKNEA <+> 1 Out Room Time <+> 1 Stop Time 01/20/19 14:24:49 Dental Assisting Instructor: BICKNEA Modifier: BICKNEA <+> 1 Stop Time 01/20/19 14:13:29 Dental Assisting Instructor: BICKNEA Modifier: BICKNEA <+> 1 Start Time <+> 1 Anesthesia Ready [facility] - Cautery Entry 1 ESU Identification Cautery Type Other Cautery Type halo flex Comments ID Number [id number] ID Type Hospital Number Cautery Settings ESU Grounding Pad Last Modified By: Ivone Humphreys RN 01/20/19 14:27:00 [facility] - Cautery Audit 01/20/19 14:27:00 Dental Assisting Instructor: BICKNEA Modifier: BICKNEA <+> 1 ID Number [facility] - Delays Entry 1 Delay Reason Other Duration 0 Minute(s) Comment NO DELAY Last Modified By: Ivone Humphreys RN 01/20/19 14:09:30 [facility] - Departure from OR Entry 1 Integumentary Assessment Integumentary WDL Assessment WDL Transfer/Handoff Transfer to PACU Phase I Handoff Reported to EZEKIEL CARIMCHAEL RN Post-op Transport Stretcher/Gurney Via Patient Transport Ivone Humphreys, LUIS, Accompanied by BRYANT FLOWERS CRNA Last Modified By: Ivone Humphreys RN 01/20/19 14:09:39 [facility] - Endoscopy Details Entry 1 Abdomen Procedure Soft, Non-Tender Assessment Procedure Abdomen 01/20/19 14:09:00 Assessment D/T Radio Frequency Ablation Last Modified By: Ivone Humphreys RN 01/20/19 14:09:46 [facility] Endo - Fire Risk Assessment Entry 1 Fire Info Surgical Site or 1- Yes Incision Above the Xyphoid Open O2 Source 1- Yes (Mask or Cannula) Available Ignition 1- Yes (ESU, Laser, Light Source) Fire Risk 3 Assessment Score Fire Score Fire Risk Yes Assessment Complete Fire Risk Ivone Humphreys RN Assessment Verified By Fire Risk 01/20/19 14:09:00 Assessment Verified Date/Time Fire Risk High Risk Protocol Yes Implemented Standard Fire Yes Safety Precautions Followed Last Modified By: Ivone Humphreys RN 01/20/19 14:09:52 E Endo - General Case Embroidery Finisher 1 Case Information OR Endo 03 E Case Level 1 Room Verified Yes Wound Class II - Clean-Contaminated Specialty SN Gastroenterology Anesthesia Type MAC ASA Class 3 Diagnosis Preop Diagnosis K22.719 BARRETTS ESOPHAGUS W/DYSPLASIA Postop Diagnosis hiatal hernia and barretts Last Modified By: Ivone Humphreys RN 01/20/19 14:16:45 [facility] Endo - General Case Data Audit 01/20/19 14:16:45 Dental Assisting Instructor: BICLAWANDAEA Modifier: BICKNEA <+> 1 Postop Diagnosis [facility] - Intraoperative Assessment Entry 1 Valid History / Yes Physical in Chart Preoperative Yes Checklist Reviewed/Evaluated Allergies Reviewed Yes Patient is Latex No Sensitive Level of WDL Consciousness (WDL = Alert, Oriented to Person, Place, and Time) Present Upon IVs, ECG monitored Arrival to OR Last Modified By: Ivone Humphreys RN 01/20/19 14:10:11 [facility] - Intraoperative Equipment Entry 1 Type Scope Equipment Intraop Monitoring Electrocardiogram Three lead placement (ECG) Electrode Placement Blood Pressure Arm, left upper Location Pulse Oximeter Hand, right Probe Site Antiembolic Devices Scopes Flexible Endoscopes Gastroscope Used Scope Serial [id number] Number/Identificatio n Number Photo/Video Documentation Photo Yes Video No Last Modified By: Ivone Humphreys RN 01/20/19 14:10:27 [facility] - Medication Admin Entry 1 Medication/Irrigant Mucomyst 200mg/1ml 10ml - [id number] Time Administered 01/20/19 14:14:00 Route of Esophageal Wash Administration Dose Dose 10 Unit of Measure ml Volume mixed in 57ml of water Administered By PRINCESS DOCKERY MD-GAE Procedure Irrigation Last Modified By: Ivone Humphreys RN 01/20/19 14:24:46 [facility] - Medication Admin Audit 01/20/19 14:24:46 Dental Assisting Instructor: ZAC Modifier: BICKNEA 1 <*> Medication/Irrigant Mucomyst 200mg/1ml 10ml - [id number] 1 <*> Dose 5 [facility] - Patient Positioning Entry 1 Procedure EGD w Radiofrequency Ablation Body Position Lateral, right side up Left Arm Position Resting at side Right Arm Position Resting at side Left Leg Position Other Right Leg Position Other Position Comments Right leg over left leg uncrossed Feet Uncrossed Yes Pressure Points Yes Checked Positioned By Ivone Humphreys RN, BRYANT FLOWERS CRNA Position Verified Positioning Yes Verified by Anesthesia Positioning Yes Verified by Surgeon Last Modified By: Ivone Humphreys RN 01/20/19 14:10:54 [facility] - Sign In Entry 1 Patient, Site, Yes Procedure Identified Surgical Consent Yes Confirmed Relevant Surgical Yes Documents Available Surgical Site N/A Marked by person performing procedure Allergies Yes Airway Hypothermia Risk No Warming Measures No Taken Last Modified By: Ivone Humphreys RN 01/20/19 14:11:04 [facility] - Sign Out Entry 1 RN Confirmation Surgical Yes Procedure(s) Identified Instrument, Sponge N/A and Sharps Counts Correct/Documented Equipment Problems N/A Documented Specimen Labeled N/A Correctly Urinary Catheter N/A Documented in IView Safety Checklist Yes Elements Complete? RN Sign Out Ivone Humphreys, LUIS Signature RN Sign Out 01/20/19 14:27:00 Signature Date/Time Plan of Care Outcome - [...] objects Last Modified By: Ivone Humphreys RN 01/20/19 14:26:11 [facility] - Surgical Procedures Entry 1 Procedure EGD w Radiofrequency Ablation Primary Procedure Yes Primary Surgeon PRINCESS DOCKERY MD-GAE Start 01/20/19 14:12:00 Stop 01/20/19 14:24:00 Anesthesia Type MAC Specialty SN Gastroenterology Wound Class II - Clean-Contaminated Last Modified By: Ivone Humphreys RN 01/20/19 14:25:03 [facility] - Surgical Procedures Audit 01/20/19 14:25:03 Dental Assisting Instructor: BICKNEA Modifier: BICKNEA <+> 1 Stop 01/20/19 14:13:35 Dental Assisting Instructor: BICKNEA Modifier: BICKNEA <+> 1 Start 01/20/19 14:11:53 Dental Assisting Instructor: BICKNEA Modifier: BICKNEA 1 <*> Procedure EGD w Radiofrequency Ablation 1 <+> Specialty [facility] Endo - Time Out Entry 1 Procedure to be EGD w Radiofrequency Performed Ablation Time Out Time Out Pause Time 01/20/19 14:12:00 All activity Yes suspended (unless life threatening [...] expected Last Modified By: Ivone Humphreys RN 01/20/19 14:12:29 Case Comments <None> Finalized By: Ivone Humphreys RN Document Signatures Signed By: Ivone Humphreys RN 01/20/19 14:27 Electronically signed by Brittany [facility] Conversion [employer]ner at 01/24/2023 10:26 AM CDT documented in this encounter Plan of Treatment Not on file documented as of this encounter Visit Diagnoses Not on filedocumented in this encounter Care Teams Hydro Plant Operator Relationship Specialty Start Date End Date Marielos Amaral APRN [address] [address] PCP - General Nurse Practitioner 08/18/23 documented as of this encounter
--- OUTSIDE RECORDS SUMMARY | 2025-05-14 20:35 | XMS_ITS | Encounter Summary ---
Author Organization [employer] ([place], [place], [place], [place]) Address [address] [place] [address] Care Team Providers Care Appellate Court Clerk Name Role Phone Marielos Amaral KAYE Primary Care Provider Encounter Details Date Type Department Care Team (Late st Contact Info) Description 02/06/2019 Transcribed Document [facility] [place] Family Medicine [address] [place] [address] ProviderHaroldo MD [address] [place] [address] Social History Tobacco Use Types Packs/Day Years Used Date Smoking Tobacco: Never Assessed Sex and Gender Information Value Date Recorded Sex Assigned at Not on file Legal Sex Male 3:45 PM CDT Gender Identity Not on file Sexual Orientation Not on file documented as of this encounter Miscellaneous Notes * Cerner Conversion Note - Haroldo ProviderMD - 02/06/2019 8:54 AM CDT ED Event Note Entered On: 02/06/2019 8:55 EDT Performed On: 02/06/2019 8:54 EDT by ANABELA WHEELER RN ED Event Note ED Event Date/Time : 02/06/2019 8:54 EDT ED Event Location : Assigned room ED Description of Event : Report called to 5 A and pt to room 549. ANABELA WHEELER RN - 02/06/2019 8:54 EDT Electronically signed by Brittany [facility] Conversion [employer] Assistant Cerner at 01/24/2023 10:20 AM CDT documented in this encounter Plan of Treatment Not on file documented as of this encounter Visit Diagnoses Not on filedocumented in this encounter Care Teams Appellate Court Clerk Relationship Specialty Start Date End Date Marielos Amaral, COMPUTATOR [address] [id number] PCP - General Nurse Practitioner 08/18/23 documented as of this encounter
--- OUTSIDE RECORDS SUMMARY | 2025-05-14 20:35 | XMS_ITS | Encounter Summary ---
Author Organization [employer] ([place], [place], [place], [place]) Address [address] [place] [address] Care Team Providers Care Marine Technician Name Role Phone AmaralMarielos roque KAYE Primary Care Provider [phone] Encounter Details Date Type Department Care Team (Late st Contact Info) Description 02/06/2019 Transcribed Document [facility] [place] Family Medicine [address] [place] [address] ProviderHaroldo MD [address] [place] [address] Social History Tobacco Use Types Packs/Day Years Used Date Smoking Tobacco: Never Assessed Sex and Gender Information Value Date Recorded Sex Assigned at Not on file Legal Sex Male 3:45 PM CDT Gender Identity Not on file Sexual Orientation Not on file documented as of this encounter Miscellaneous Notes * Cerner Conversion Note - Haroldo ProviderMD - 02/06/2019 12:01 PM CDT Consult Phone Call Documentation Entered On: 02/06/2019 13:47 EDT Performed On: 02/06/2019 12:01 EDT by RAINE FERNANDO Phone Call for Consults Consult, Additional Information : called [facility] on 02/06/2019 RAINE FERNANDO - 02/06/2019 13:45 EDT documented in this encounter Plan of Treatment Not on file documented as of this encounter Visit Diagnoses Not on filedocumented in this encounter Care Teams Marine Technician Relationship Specialty Start Date End Date Marielos Amaral, [employer] PLANT CONSTRUCTION WORKER [address] [place] [address] PCP - General Nurse Practitioner 08/18/23 documented as of this encounter
--- OUTSIDE RECORDS SUMMARY | 2025-05-14 20:35 | XMS_ITS | Encounter Summary ---
Author Organization [employer] ([place], [place], [place], [place]) Address [address] [place] [address] Care Team Providers Care Welfare Case Worker Name Role Phone AmaralMarielos roque KAYE Primary Care Provider Encounter Details Date Type Department Care Team (Late st Contact Info) Description 02/06/2019 Transcribed Document [facility] [place] [address] [place] [address] ProviderHaroldo MD [address] [place] [address] Social History Tobacco Use Types Packs/Day Years Used Date Smoking Tobacco: Never Assessed Sex and Gender Information Value Date Recorded Sex Assigned at Not on file Legal Sex Male 3:45 PM CDT Gender Identity Not on file Sexual Orientation Not on file documented as of this encounter Miscellaneous Notes * Cerner Conversion Note - Haroldo ProviderMD - 02/06/2019 12:17 AM CDT Consult Phone Call Documentation Entered On: 02/06/2019 9:54 EDT Performed On: 02/06/2019 0:17 EDT by RAINE FERNANDO Phone Call for Consults Consult, Additional Information : called Dr. Matta on 02/06/2019 RAINE FERNANDO - 02/06/2019 9:53 EDT Electronically signed by Renetta Soto Conversion Setter Induction Heating Equipment Cerner at 01/24/2023 10:28 AM CDT documented in this encounter Plan of Treatment Not on file documented as of this encounter Visit Diagnoses Not on filedocumented in this encounter Care Teams Welfare Case Worker Relationship Specialty Start Date End Date Marielos Amaral, [employer] ASSEMBLY MACHINE TENDER [address] [place] [address] PCP - General Nurse Practitioner 08/18/23 documented as of this encounter
--- OUTSIDE RECORDS SUMMARY | 2025-05-14 20:35 | XMS_ITS | Encounter Summary ---
Author Organization [employer] ([place], [place], [place], [place]) Address [address] [place] [address] Care Team Providers Care Night Warehouse Manager Name Role Phone Marielos Amaral KAYE Primary Care Provider Encounter Details Date Type Department Care Team (Late st Contact Info) Description 02/06/2019 Transcribed Document [facility] [place] [facility] [place] [address] ProviderHaroldo MD [address] [place] [address] Social History Tobacco Use Types Packs/Day Years Used Date Smoking Tobacco: Never Assessed Sex and Gender Information Value Date Recorded Sex Assigned at Not on file Legal Sex Male 3:45 PM CDT Gender Identity Not on file Sexual Orientation Not on file documented as of this encounter Miscellaneous Notes * Cerner Conversion Note - Haroldo ProviderMD - 02/06/2019 12:20 AM CDT Patient: ZACKARY ANTOINE Age: 68 Years Sex: Male : 1950 Chief Complaint pt here c/o right shoulder pain and weakness to right arm and loss of balance 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 strength equal bilaterally decreased sensation to right arm and right leg no facial droop or slurred speech equal bilateral lower extremities Primary Care Provider KATELYN MCKEON (REF) Vital Signs Vitals Signs (last 24 hrs) Last Charted Minimum Maximum Temp 98.7 (FEBRUARY 05 18:55) 98.7 (FEBRUARY 05 18:55) 98.7 (FEBRUARY 05 18:55) Periph HR 84 (FEBRUARY 05 18:55) 84 (FEBRUARY 05 18:55) 84 (FEBRUARY 05 18:55) Resp Rate 16 (FEBRUARY 05 18:55) 16 (FEBRUARY 05 18:55) 16 (FEBRUARY 05 18:55) SBP H 168 (FEBRUARY 05 18:55) H 168 (FEBRUARY 05 18:55) H 168 (FEBRUARY 05 18:55) DBP H 92 (FEBRUARY 05 18:55) H 92 (FEBRUARY 05 18:55) H 92 (FEBRUARY 05 18:55) SpO2 98 (FEBRUARY 05 18:55) 98 (FEBRUARY 05 18:55) 98 (FEBRUARY 05 18:55) Oxygen Settings (Last) Oxygen Therapy Mode: Room air (02/05/19 18:55:00 EDT) Assessment/Plan Ataxia Weakness Weakness Orders: acetaminophen, 650 mg, Oral, Tab, Q4H, PRN for Pain (Mild 1-3), Routine, Start 02/06/19 0:19:00 EDT aspirin, 325 mg, Oral, Tab, Daily, Routine, Start 02/06/19 9:00:00 EDT docusate, 100 mg, Oral, Cap, BID, Routine, Start 02/06/19 0:19:00 EDT enoxaparin, 40 mg, SubCutaneous, Inj, Daily, Routine, Start 02/06/19 9:00:00 EDT ondansetron, 4 mg, IV Push, Inj, Q4H, PRN for Nausea, Routine, Start 02/06/19 0:19:00 EDT pantoprazole, 40 mg, IV Push, Inj, Daily, Routine, Start 02/06/19 9:00:00 EDT polyethylene glycol 3350, 17 Gram, Oral, Powder, Daily, PRN for Constipation, Routine, Start 02/06/19 0:19:00 EDT rosuvastatin, 10 mg, Oral, Tab, At Bedtime, Routine, Start 02/06/19 0:17:00 EDT sodium chloride, 10 mL, IV Push, Inj, Q12H, Routine, Start 02/06/19 0:17:00 EDT sodium chloride, 10 mL, IV Push, Inj, See Comment, PRN for IV Use, Routine, Start 02/06/19 0:17:00 EDT Sodium Chloride 0.9% intravenous solution 1,000 mL, 1,000 mL, Bag Volume (mL) = 1,000, Rate = 75 mL/Hr, IntraVENous, start date 02/06/19 0:19:00 EDT, Routine Airway Suction Aspiration Precautions Aspiration Precautions Bedrest Blood Pressure Cardiac Monitoring CBC w/ Manual Diff CMP Comprehensive Metabolic Panel Consult to Case Management Consult to Dietitian Consult to Physician Consult to Spiritual Care Consult to Project Controls Scheduler CRP C-Reactive Protein Diet, Adult Do Not Use Extremity For DVT VTE Prophylaxis Education DVT VTE Prophylaxis Education EC 2D Echo Complete W Bubble Study ESR Sedimentation Rate Auto Fall Risk/Fall Prevention Protocol Folate Level Hemoglobin A1C Intake and Output Lipid Panel Modified Martin Bedside Swallow Screen MRI Brain WO Neurological Assessment Neurological Assessment Neurological Assessment NIH Stroke Scale Assessment NIH Stroke Scale Assessment NIH Stroke Scale Assessment Notify Provider Notify Provider of Change in Patient Condition Notify Provider of Change in Patient Condition Notify Provider Stroke Blood Pressure Notify Provider Vital Signs Notify Provider Vital Signs OT Evaluation and Treatment Oxygen Therapy Oxygen Therapy Peripheral IV Insertion Peripheral IV Management Place in Observation POC Glucose PT Evaluation and Treatment Pulse Oximetry Spot Check (Nursing) Resuscitation Status RPR Rapid Plasma Reagin Sequential Compression Device Sequential Compression Device Sequential Compression Device Smoking Cessation Education (Nursing) Speech Language Pathology Evaluation and Treatment Stroke Education (By Discharge) Stroke Education (General) Stroke Quality Measures TSH Thyroid Stimulating Hormone Vital Signs Vital Signs Vital Signs Vital Signs Vitamin B12 Level Weight (Routine) VTE Prophylaxis - Medical Enoxaparin 40 mg, SubCutaneous, Inj, Daily, Routine, Start 02/06/19 9:00:00 EDT (FIORELLA OWENS) Sequential Compression Device Start: 02/06/19 0:19:00 EDT, Bilateral, Length: Knee High, While patient is in bed, Continuous Order (FIORELLA OWENS) Sequential Compression Device Start: 02/06/19 0:19:00 EDT, Bilateral, Continuous Order (FIORELLA OWENS) Sequential Compression Device Start: 02/06/19 0:17:00 EDT, Bilateral, Length: Knee High, While patient is in bed, Continuous Order (FIORELLA OWENS) Please refer to dictation for details Of note patient came in as a walk-in in the ER. He was outside the window by the time he was seen by provider according to QUITA Romo in the ER. Problem List/Past Medical History Ongoing Angina Coronary artery disease Diabetes mellitus type II Enlarged prostate GERD - Gastro-esophageal reflux disease Heart failure Heart murmur History of obstructive sleep apnea Hyperlipidemia Hypertension Impaired vision Migraine Stented coronary artery Historical No qualifying data Procedure/Surgical History DESTRUCTION OF ESOPHAGOGASTRIC JUNCTION, ENDO (01/20/2019), INTRODUCTION [...] & PRESSURE, L HEART, PERC APPROACH (02/07/2017), appendectomy, cardiac catheterization, Cholecystectomy;., coronary stents, hernia repair, left arm surgery, tonsillectomy. Home Medications (10) Active amiodarone 200 mg oral tablet See Instructions aspirin 81 mg oral delayed release tablet 81 mg = 1 Tab, Oral, Daily Colace 100 mg oral capsule 100 mg = 1 Cap, Oral, BID Flomax 0.4 mg oral capsule 0.4 mg = 1 Cap, Oral, Daily glimepiride 2 mg oral tablet 2 mg = 1 Tab, Oral, BID Lipitor 40 mg oral tablet 40 mg = 1 Tab, Oral, At Bedtime lisinopril 10 mg oral tablet 10 mg = 1 Tab, Oral, Daily Lopressor 50 mg oral tablet 25 mg = 0.5 Tab, Oral, Q12H metFORMIN 1000 mg oral tablet 1,000 mg = 1 Tab, Oral, BID Zantac 300 oral tablet 300 mg = 1 Tab, Oral, BID Allergies Mucinex amoxicillin Social History Alcohol Alcohol Use History No. Use in Last 12 Months: No. Nutrition/Health Regular, Diabetic, Wants to lose weight: No. Sleeping concerns: No. Feels highly stressed: No. Substance Abuse Drug Use Hx: No. Use in Last 12 Months: No. Tobacco Smoking Status Current every day smoker. Five [...] Test Name Test Result Date/Time Sodium Level 137 mmol/L 02/05/2019 21:52 EDT Potassium Level 4.6 mmol/L 02/05/2019 21:52 EDT Chloride Level 105 mmol/L 02/05/2019 21:52 EDT Carbon Dioxide Level 23 mmol/L 02/05/2019 21:52 EDT Anion Gap 14 02/05/2019 21:52 EDT Glucose Level 97 mg/dL 02/05/2019 21:52 EDT Blood Urea Nitrogen 16 mg/dL 02/05/2019 21:52 EDT Creatinine Level 0.90 mg/dL 02/05/2019 21:52 EDT eGFR >60 mL/min/1.73m2 02/05/2019 21:52 EDT eGFR NonAfrican >60 mL/min/1.73m2 02/05/2019 21:52 EDT Bun/Creatinine 17.8 02/05/2019 21:52 EDT Calcium Level 9.4 mg/dL 02/05/2019 21:52 EDT Protein Total 7.5 Gram/dL 02/05/2019 21:52 EDT Albumin Level 3.8 Gram/dL 02/05/2019 21:52 EDT Globulin 3.7 Gram/dL 02/05/2019 21:52 EDT A/G Ratio 1.0 (Low) 02/05/2019 21:52 EDT Bilirubin Total 0.6 mg/dL 02/05/2019 21:52 EDT Alk Phos 71 Units/Liter 02/05/2019 21:52 EDT AST 15 Units/Liter 02/05/2019 21:52 EDT ALT 26 Units/Liter 02/05/2019 21:52 EDT Lipase Level 111 Units/Liter 02/05/2019 21:52 EDT Troponin I Ultra <0.015 ng/mL 02/05/2019 21:52 EDT WBC 11.4 K/uL (High) 02/05/2019 21:52 EDT RBC 4.87 Million/uL 02/05/2019 21:52 EDT Hgb 14.7 g/dL 02/05/2019 21:52 EDT Hct 42.8 % 02/05/2019 21:52 EDT MCV 87.9 fL 02/05/2019 21:52 EDT MCH 30.2 pg 02/05/2019 21:52 EDT MCHC 34.3 Gram/dL 02/05/2019 21:52 EDT Platelet Count 325 K/uL 02/05/2019 21:52 EDT MPV 9.8 fL 02/05/2019 21:52 EDT RDW 12.7 % 02/05/2019 21:52 EDT Neut % 68.6 % 02/05/2019 21:52 EDT Neut # 7.85 K/uL (High) 02/05/2019 21:52 EDT Lymph % 20.5 % 02/05/2019 21:52 EDT Lymph # 2.34 x10(3)/uL 02/05/2019 21:52 EDT Craven % 8.7 % 02/05/2019 21:52 EDT Craven # 0.99 K/uL 02/05/2019 21:52 EDT Eos % 1.0 % 02/05/2019 21:52 EDT Eos # 0.12 x10(3)/uL 02/05/2019 21:52 EDT Baso % 0.4 % 02/05/2019 21:52 EDT Baso # 0.05 x10(3)/uL 02/05/2019 21:52 EDT Slide Review No 02/05/2019 21:52 EDT IG# 0.09 x10(3)/uL (High) 02/05/2019 21:52 EDT IG% 0.80 % (High) 02/05/2019 21:52 EDT Urine Type U CleanCatch 02/05/2019 23:59 EDT Urine Color YELLOW2 02/05/2019 23:59 EDT Urine Appearance CLEAR2 02/05/2019 23:59 EDT Urine Specific Shirley 1.016 02/05/2019 23:59 EDT Urine pH Dipstick 5.5 (Low) 02/05/2019 23:59 EDT Urine Leukocyte Esterase NEGATIVE2 02/05/2019 23:59 EDT Urine Nitrite NEGATIVE2 02/05/2019 23:59 EDT Urine Protein Dipstick NEGATIVE2 02/05/2019 23:59 EDT Urine Glucose Dipstick NEGATIVE2 02/05/2019 23:59 EDT Urine Ketones Dipstick NEGATIVE2 02/05/2019 23:59 EDT Urine Urobilinogen Dipstick 1.0 (Abnormal) 02/05/2019 23:59 EDT Urine Bilirubin Dipstick NEGATIVE2 02/05/2019 23:59 EDT Urine Blood Dipstick NEGATIVE2 02/05/2019 23:59 EDT Alcohol <3 mg/dL 02/05/2019 21:52 EDT %Alcohol <0.00 02/05/2019 21:52 EDT Additional Documentation Code Status Start: 02/06/19 0:17:00 EDT, Full Code, Continuous Order Electronically signed by Brittany [facility] Conversion Wide Area Network Administrator Cerner at 01/24/2023 10:25 AM CDT documented in this encounter Plan of Treatment Not on file documented as of this encounter Visit Diagnoses Not on filedocumented in this encounter Care Teams Night Warehouse Manager Relationship Specialty Start Date End Date Marielos Amaral, TOWER OBSERVER [address] [phone] PCP - General Nurse Practitioner 08/18/23 documented as of this encounter
--- OUTSIDE RECORDS SUMMARY | 2025-05-14 20:35 | XMS_ITS | Encounter Summary ---
Author Organization [employer] ([place], [place], [place], [place]) Address [address] [place] [address] Care Team Providers Care Global Sales Manager Name Role Phone Marielos Amaral APRN Primary Care Provider Encounter Details Date Type Department Care Team (Late st Contact Info) Description 10/17/2019 Transcribed Document [facility] [place] [facility] [address] [place] [address] ProviderHaroldo MD [address] [place] [address] Social History Tobacco Use Types Packs/Day Years Used Date Smoking Tobacco: Never Assessed Sex and Gender Information Value Date Recorded Sex Assigned at Not on file Legal Sex Male 3:45 PM CDT Gender Identity Not on file Sexual Orientation Not on file documented as of this encounter Miscellaneous Notes * Cerner Conversion Note - Haroldo ProviderMD - 10/17/2019 1:38 PM 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 [place] [id number] DEION ANTOINE :1950 Visit Time:10/14/2019 Your Visit Summary Your Care Team Admitting Physician - PETRA TORRES MD-INT PH[facility], UNKNOWN FANY MCCRACKEN MD Attending Physician - PETRA TORRES MD-INT FANY MCCRACKEN MD Primary Care Physician - KATELYN MCKEON MD-[facility] Referring Physician - FANY MCCRACKEN MD Your Diagnosis Cerebral infarction, unspecified, Cerebral infarction, unspecified, Stroke Chest pain Chest pain Hypertensive emergency Hypertensive urgency Right leg weakness Discharge Vitals Temperature 36.4 ??C Heart Rate (Monitored) 64 Respiratory Rate 20 Blood Pressure 127/58 What to do next Instructions From Your Care Team Discharge Activity: follow neurology instruction, Discharge Activity: Other (use Special Instructions) Diet: Discharge Diet: Diabetic diet (carb controlled) Follow-Up Appointments Follow Up with [facility] Cardiology When Within 1 to 2 weeks Comments for stress test Follow Up with Follow up with primary care provider When Within 2 weeks Comments check TSH Follow Up with ALBERTO RIZVI When Within 6 weeks Comments Patient should call for a follow up appointment with [facility] Neurology. Where: [address] [place] [address] [employer] (1) Warfarin Instructions Indication for Warfarin Anticoagulation: Atrial fibrillation, Ischemic stroke Notify Provider of Signs/Symptoms of: Significant bleeding, Clot Notify Provider of Signs/Symptoms of: Significant bleeding, Clot Medications What How Much When Instructions Next Dose acetaminophen (Tylenol 325 mg oral tablet) 2 Tablet(s) Oral Every 4 Hours as needed for Pain (Mild 1-3) levothyroxine (Synthroid 100 mcg (0.1 mg) oral tablet) 1 Tablet(s) Oral Every Day Printed Prescription nitroglycerin (Nitrostat 0.6 mg sublingual tablet) 1 Tablet(s) SubLINgual Every 5 minutes as needed for as needed for chest pain Printed Prescription amiodarone (amiodarone 200 mg oral tablet) 1 Tablet(s) Oral Every Day apixaban (Eliquis 5 mg oral tablet) 1 Tablet(s) Oral Two Times A Day Printed Prescription lisinopril (lisinopril 40 mg oral tablet) 1 Tablet(s) Oral Every Day metoprolol (Metoprolol Succinate ER 50 mg oral tablet, extended release) 1 Tablet(s) Oral Every Day atorvastatin (atorvastatin [...] fibrillation, Coronary artery disease, Diabetes, Heart disease, Hypertension/High blood pressure, Previous stroke Stroke/TIA Signs/Symptoms to Report Immediately: Sudden onset difficulty speaking, Sudden onset difficulty understanding speech, Sudden onset change in vision, Sudden onset weakness particulary on one side of the body, Sudden onset numbness/tingling, Sudden severe headache, Sudden dizziness or trouble with gait, Call : EMS activation is crucial Mutually Agreed Upon Goals Blood Pressure Management: I will ask my physician about my blood pressure goal Blood Pressure Management: I will ask my physician about my blood pressure goal Blood Pressure Management: (Cont): I will not change or stop any meds w/o instruction from MD Blood Pressure Management: (Cont): I will not change or stop any meds w/o instruction from MD My LDL Level: My LDL Level: My LDL Level: My LDL Level: Reduce Cholesterol/Diet: I will take cholesterol reducing medications as prescribed Anticoagulant/Anti-Platelet/Medications: I will not stop taking my meds unless instructed by MD Anticoagulant/Anti-Platelet/Medications: I will keep a current list of my meds with me and at home Increase Activity/Exercise/Weight Loss: I will exercise regularly Sugar Control for Diabetics/Sleep Apnea: I will record my blood sugar and bring log to MD appts Sugar control for diabetics/SA (cont): I will take insulin/diabetic meds as prescribed [facility] Discharge After a Stroke Being discharged [...] 12/26/2017 Document Revised: 12/26/2017 Document Reviewed: 12/26/2017 [employer] Patient Education ?? 2019 [employer] Stroke Prevention Some medical conditions and [...] or 1?? oz of hard liquor. ??? Stop any [...] lot or have excessive sleepiness. ??? Take tzkq-pwq-kshtaov and prescription medicines only as told by [...] more information For more information, visit: ??? [place] Stroke Association: www.strokeassociation.org ??? National Stroke Association: [...] 10/30/2005 Document Revised: 10/28/2017 Document Reviewed: 10/28/2017 [employer] Patient Education ?? 2019 [employer]. nitroglycerin (oral/sublingual) (ANTONIETTA troe GLI ser in (OR al/sub NORA gwal)) GoNitro, Nitrolingual, Nitromist, Nitrostat, Nitro-Time What is the most important information I should know about nitroglycerin? You should not use this medicine if you are also using medicine to treat pulmonary arterial hypertension or erectile dysfunction. You should not use sublingual nitroglycerin if you have severe anemia, increased pressure inside your skull, circulation problems, chest pain that spreads to your jaw or shoulder, or signs of shock (pale skin, suddenly feeling light-headed). What is nitroglycerin? Nitroglycerin is used to treat or prevent attacks of chest pain (angina). Nitroglycerin may also be used for purposes not listed in this medication guide. What should I discuss with my healthcare provider before taking nitroglycerin? You should not use nitroglycerin if you are allergic to it, or if you are using medicine to treat pulmonary arterial hypertension, such as riociguat (Adempas). Do not take erectile dysfunction medicine (Viagra, Cialis, Levitra, Stendra, Staxyn, sildenafil, avanafil, tadalafil, vardenafil). Using erectile dysfunction medicine with nitroglycerin can cause a sudden and serious decrease in blood pressure. You should not use sublingual nitroglycerin if you have: ?? severe anemia (low red blood cells); ?? increased pressure inside the skull; ?? circulation problems or shock (pale skin, cold sweat, fast or irregular heartbeats, sudden weakness or feeling like you might pass out); or ?? heart attack symptoms--chest pain or pressure, pain spreading to your jaw or shoulder, nausea, sweating. Tell your doctor if you have ever had: ?? a heart attack or other heart problems; ?? a stroke or head injury; ?? low blood pressure; or ?? headaches. Tell your doctor if you are or . Nitroglycerin (oral/sublingual) is not approved for use by anyone younger than 18 years old. How should I take nitroglycerin? Follow all directions on your prescription label and read all medication guides or instruction sheets. Use the medicine exactly as directed. If you use too much nitroglycerin, it might not work as well in controlling your symptoms. Nitroglycerin is usually taken at the first sign of chest pain. You may use nitroglycerin sublingual within 5 to 10 minutes before an activity you think might cause chest pain. Try to rest or stay seated when you take nitroglycerin (may cause dizziness or fainting). Do not rinse or spit nitroglycerin powder for 5 minutes after using the medicine. Read and carefully follow any Instructions for Use provided with your medicine. Ask your doctor or pharmacist if you do not understand these instructions. Seek emergency medical attention if your chest pain gets worse or lasts more than 5 minutes, especially if you have trouble breathing or feel weak, dizzy, or nauseated, or lightheaded. You may feel a slight burning or stinging in your mouth when you use this medicine. This is not a sign of how well the medicine is working. Do not use more just because you do not feel a burning or stinging. This medicine can affect the results of certain medical tests. Tell any doctor who treats you that you are using nitroglycerin. If you take nitroglycerin on a regular schedule to prevent angina, do not stop taking it suddenly or you could have a severe attack of angina. Keep this medicine on hand at all times. Get your prescription refilled before you run out of medicine completely. Store nitroglycerin at room temperature away from moisture and heat. Keep the spray away from open flame or high heat, such as in a car on a hot day. The canister may explode if it gets too hot. What happens if I miss a dose? Since nitroglycerin is used when needed, you may not be on a dosing schedule. If you are on a schedule, the medicine as soon as you can, but skip the missed dose if your next dose is due in less than 2 hours. Do not use two doses at one time. What happens if I overdose? Seek emergency medical attention or call the Poison Help line at . An overdose of nitroglycerin can be fatal. Overdose symptoms may include a severe throbbing headache, confusion, fever, fast or pounding heartbeats, dizziness, vision problems, vomiting, bloody diarrhea, trouble breathing, cold or clammy skin, fainting, and seizures. What should I avoid while taking nitroglycerin? Avoid getting up too fast from a sitting or lying position, or you may feel dizzy. Drinking alcohol can increase certain side effects such as dizziness, drowsiness, feeling light-headed, or fainting. What are the possible side effects of nitroglycerin? Get emergency medical help if you have signs of an allergic reaction: hives; difficult breathing; swelling of your face, lips, tongue, or throat. Call your doctor at once if you have: ?? severe or throbbing headaches that do not become less severe with continued use of nitroglycerin; ?? pounding heartbeats or fluttering in your chest; ?? slow heart rate; ?? a light-headed feeling, like you might pass out; ?? blurred vision or dry mouth; or ?? heart attack symptoms--chest pain or pressure, pain spreading to your jaw or shoulder, nausea, sweating. Nitroglycerin can cause severe headaches. These headaches may gradually become less severe as you continue to use nitroglycerin. Do not stop taking this medicine. Ask your doctor before using any headache pain medication. Common side effects may include: ?? headache, dizziness; or ?? numbness, tingling, burning pain. This is not a complete list of side effects and others may occur. Call your doctor for medical advice about side effects. You may report side effects to FDA at 5-967-YQT-9416. What other drugs will affect nitroglycerin? Tell your doctor about all your current medicines, especially: ?? aspirin, heparin; ?? medicine used to treat blood clots; ?? blood pressure medication; or ?? ergot medicine--dihydroergotamine, ergotamine, ergonovine, methylergonovine. This list is not complete and many other drugs may affect nitroglycerin. This includes prescription and dmxi-fdw-qvxoryu medicines, vitamins, and herbal products. Not all possible drug interactions are listed here. Where can I get more information? Your pharmacist can provide more information about nitroglycerin. Remember, keep this and all other medicines out of the reach of children, never share your medicines with others, and use this medication only for the indication prescribed. Every effort has been made to ensure that the information provided by [employer] is accurate, up-to-date, and complete, but no guarantee is made to that effect. Drug information contained herein may be time sensitive. [employer] information has been compiled for use by healthcare practitioners and consumers in the [place] and therefore [employer] does not warrant that uses outside of the [place] are appropriate, unless specifically indicated otherwise. [employer] drug information does not endorse drugs, diagnose patients or recommend therapy. [employer] drug information is an informational resource designed [...] effective or appropriate for any given patient. [employer] does not assume any responsibility for any aspect of healthcare administered with the aid of information [employer] provides. The information contained herein is not intended to cover all possible uses, directions, precautions, warnings, drug interactions, allergic reactions, or adverse effects. If you have questions about the drugs you are taking, check with your doctor, nurse or pharmacist. Copyright 6087-9878 [employer]. Version: 15.01. Revision Date: 08/12/2019. levothyroxine (oral/injection) (VERA voe thye ASHLY een) Levoxyl, Synthroid, Tirosint, Unithroid What is the most important information I should know about levothyroxine? You may not be able to take levothyroxine if you have certain medical conditions. Tell your doctor if you have an untreated or uncontrolled adrenal gland disorder, a thyroid disorder called thyrotoxicosis, or if you have any recent or current symptoms of a heart attack. Levothyroxine should not be used to treat obesity or weight problems. What is levothyroxine? Levothyroxine is used to treat hypothyroidism (low thyroid hormone). Levothyroxine is given when your thyroid does not produce enough of this hormone on its own. Levothyroxine is also used to treat or prevent goiter (enlarged thyroid gland), which can be caused by hormone imbalances, radiation treatment, surgery, or cancer. There are many brands and forms of levothyroxine available. Not all brands are listed on this leaflet. Levothyroxine may also be used for purposes not listed in this medication guide. What should I discuss with my healthcare provider before taking levothyroxine? Levothyroxine should not be used to treat obesity or weight problems. Dangerous side effects or can occur from the misuse of levothyroxine, especially if you are taking any other weight-loss medications or appetite suppressants. Since thyroid hormone occurs naturally in the body, almost anyone can take levothyroxine. However, you may not be able to take this medicine if you have certain medical conditions. Tell your doctor if you have: ?? an untreated or uncontrolled adrenal gland disorder; ?? a thyroid disorder called thyrotoxicosis; or ?? symptoms of a heart attack (chest pain or heavy feeling, pain spreading to the jaw or shoulder, nausea, sweating, general ill feeling). Tell your doctor if you have ever had: ?? a thyroid nodule; ?? heart disease, a blood clot, or a blood-clotting disorder; ?? diabetes (insulin or oral diabetes medication doses may need to be changed when you start taking levothyroxine); ?? kidney disease; ?? anemia (lack of red blood cells); ?? osteoporosis, or low bone mineral density; ?? problems with your pituitary gland; or ?? any food or drug allergies. Tell your doctor if you have recently received radiation therapy with iodine (such as I-131). If you become while taking levothyroxine, do not stop taking the medicine without your doctor's advice. Having low thyroid hormone levels during could harm both mother and baby. Your dose needs may be different during . Tell your doctor if you are breast-feeding. Your dose needs may be different while you are nursing. Do not give this medicine to a child without medical advice. Tirosint is not approved for use by anyone younger than 6 years old. How should I take levothyroxine? Follow all directions on your prescription label and read all medication guides or instruction sheets. Your doctor may occasionally change your dose. Use the medicine exactly as directed. Levothyroxine oral is taken by mouth. Levothyroxine injection is given as an infusion into a vein. Levothyroxine is usually given by injection only if you are unable to take the medicine by mouth. Levothyroxine oral works best if you take it on an empty stomach, 30 to 60 minutes before breakfast. Follow your doctor's dosing instructions and try to take the medicine at the same time each day. Swallow the tablet or capsule whole, with a full glass (8 ounces) of water. The levothyroxine tablet may dissolve very quickly and could swell in your throat. Measure liquid medicine carefully. Use the dosing syringe provided, or use a medicine dose-measuring device (not a kitchen spoon). Levothyroxine doses are based on weight in children. Your child's dose needs may change if the child gains or loses weight. It may take several weeks before your body starts to respond to levothyroxine. Keep using this medicine even if you feel well. You may need to use levothyroxine for the rest of your life. You may need frequent medical tests. Tell any doctor, dentist, or surgeon who treats you that you are using levothyroxine. Store at room temperature away from moisture and heat. Do not share this medicine with another person, even if they have the same symptoms you have. What happens if I miss a dose? Take the medicine as soon as you can, but skip the missed dose if it is almost time for your next dose. Do not take two doses at one time. What happens if I overdose? Seek emergency medical attention or call the Poison Help line at . Overdose symptoms may include headache, leg cramps, tremors, feeling nervous or irritable, chest pain, shortness of breath, and fast or pounding heartbeats. What should I avoid while taking levothyroxine? Avoid the following food products, which can make your body absorb less levothyroxine: grapefruit juice, infant soy formula, soybean flour, cotton seed meal, walnuts, and high-fiber foods. What are the possible side effects of levothyroxine? Get emergency medical help if you have signs of an allergic reaction: hives; difficult breathing; swelling of your face, lips, tongue, or throat. Call your doctor at once if you have: ?? fast or irregular heartbeats; ?? chest pain, shortness of breath; ?? fever, hot flashes, sweating; ?? tremors, or if you feel unusually cold; ?? weakness, tiredness, sleep problems (insomnia); ?? memory problems, feeling depressed or irritable; ?? headache, leg cramps, muscle aches; ?? feeling nervous or irritable; ?? dryness of your skin or hair, hair loss; ?? changes in your menstrual periods; or ?? vomiting, diarrhea, appetite changes, weight changes. Certain side effects may be more likely in older adults. Common side effects may include: ?? muscle weakness; ?? headache, leg cramps; ?? nervousness, trouble sleeping; ?? diarrhea; or ?? skin rash, partial hair loss. This is not a complete list of side effects and others may occur. Call your doctor for medical advice about side effects. You may report side effects to FDA at 3-801-LOM-3295. What other drugs will affect levothyroxine? Many other medicines can be affected by your thyroid hormone levels. Certain other medicines may also increase or decrease the effects of levothyroxine. Certain medicines can make levothyroxine less effective if taken at the same time. If you use any of the following drugs, avoid taking them within 4 hours before or 4 hours after you take levothyroxine: ?? calcium carbonate (Marlen-Mints, Caltrate, Os-Alejandro, Oyster Shell Calcium, Rolaids Soft Chew, Tums, and others); ?? cholestyramine, colesevelam, colestipol; ?? ferrous sulfate iron supplement; ?? sucralfate; ?? sodium polystyrene sulfonate (Kalexate, Kayexalate, Kionex); ?? stomach acid reducers--esomeprazole, lansoprazole, omeprazole, rabeprazole, Nexium, Prilosec, Prevacid, Protonix, Zegerid, and others; or ?? antacids that contain aluminum or magnesium--Gaviscon, Maalox, Milk of Magnesia, Mintox, Mylanta, Pepcid Complete, and others. Many drugs can affect levothyroxine. This includes prescription and fpny-mlr-nlthnsj medicines, vitamins, and herbal products. Not all possible interactions are listed here. Tell your doctor about all your current medicines and any medicine you start or stop using. Where can I get more information? Your doctor or pharmacist can provide more information about levothyroxine. Remember, keep this and all other medicines out of the reach of children, never share your medicines with others, and use this medication only for the indication prescribed. Every effort has been made to ensure that the information provided by [employer] is accurate, up-to-date, and complete, but no guarantee is made to that effect. Drug information contained herein may be time sensitive. [employer] information has been compiled for use by healthcare practitioners and consumers in the [place] and therefore [employer] does not warrant that uses outside of the [place] are appropriate, unless specifically indicated otherwise. [employer] drug information does not endorse drugs, diagnose patients or recommend therapy. [employer] drug information is an informational resource designed [...] effective or appropriate for any given patient. [employer] does not assume any responsibility for any aspect of healthcare administered with the aid of information [employer] provides. The information contained herein is not intended to cover all possible uses, directions, precautions, warnings, drug interactions, allergic reactions, or adverse effects. If you have questions about the drugs you are taking, check with your doctor, nurse or pharmacist. Copyright 1002-0016 [employer]. Version: 13.04. Revision Date: 05/05/2019. Emergency Awareness and Preventative Care STROKE is [...] Assistance with quitting is available by contacting 7-923-DEVQ-NOW. This is a free resource providing counseling, support, and referral. Or you may contact your personal physician. [place] Suicide Prevention Lifeline: The National Suicide Prevention [...] This Visit (last charted value for your 10/14/2019 visit) Hematology 10/15/2019 4:34 AM WBC: 8.4 K/uL -- Normal range between ( 3.6 and 9.5 ) RBC: 3.80 Million/uL -- Normal range between ( 4.20 and 5.70 ) Hct: 34.9 % -- Normal range between ( 40.1 and 51.0 ) Hgb: 12.0 g/dL -- Normal range between ( 13.5 and 17.3 ) Platelet Count: 215 K/uL -- Normal range between ( 163 and 369 ) MCH: 31.6 pg -- Normal range between ( 25.6 and 32.2 ) MCHC: 34.4 Gram/dL -- Normal range between ( 32.2 and 36.5 ) MCV: 91.8 fL -- Normal range between ( 79.0 and 94.8 ) Slide Review: No Eos %: 1.4 % -- Normal range between ( 0.0 and 7.0 ) Gonzales #: 0.73 K/uL -- Normal range between ( 0.16 and 1.00 ) Eos #: 0.12 x10(3)/uL -- Normal range between ( 0.00 and 0.80 ) Gonzales %: 8.7 % -- Normal range between ( 3.0 and 9.0 ) Baso %: 0.2 % -- Normal range between ( 0.0 and 1.5 ) Baso #: 0.02 x10(3)/uL -- Normal range between ( 0.00 and 0.20 ) RDW: 13.6 % -- Normal range between ( 11.7 and 14.9 ) Neut %: 69.0 % -- Normal range between ( 34.0 and 71.0 ) Neut #: 5.81 K/uL -- Normal range between ( 1.56 and 6.13 ) Lymph %: 20.1 % -- Normal range between ( 19.3 and 53.1 ) Lymph #: 1.69 x10(3)/uL -- Normal range between ( 1.00 and 3.90 ) MPV: 9.8 fL -- Normal range between ( 9.4 and 12.4 ) IG#: 0.05 x10(3)/uL -- Normal range between ( 0.00 and 0.05 ) IG%: 0.60 % -- Normal range between ( 0.00 and 0.60 ) 10/14/2019 8:26 PM Sed Rate Auto: 4 mm/Hr -- Normal range between ( 0 and 20 ) General Chemistry 10/17/2019 11:10 AM Glucose POC2: 271 mg/dL -- Normal range between ( 70 and 110 ) Device Comment 1: Device Comment 1 10/16/2019 4:19 AM Creatinine Level: 1.30 mg/dL -- Normal range between ( 0.70 and 1.30 ) Sodium Level: 138 mmol/L -- Normal range between ( 136 and 146 ) Potassium Level: 3.8 mmol/L -- Normal range between ( 3.5 and 5.1 ) Chloride Level: 109 mmol/L -- Normal range between ( 102 and 112 ) Carbon Dioxide Level: 24 mmol/L -- Normal range between ( 21 and 32 ) Anion Gap: 9 -- Normal range between ( 9 and 20 ) Bun/Creatinine: 11.5 -- Normal range between ( 8.0 and 20.0 ) Calcium Level: 9.1 mg/dL -- Normal range between ( 8.4 and 10.1 ) eGFR : >60 mL/min/1.73m2 eGFR NonAfrican: 55 mL/min/1.73m2 Glucose Level: 134 mg/dL -- Normal range between ( 74 and 106 ) Blood Urea Nitrogen: 15 mg/dL -- Normal range between ( 7 and 22 ) 10/15/2019 4:48 AM Bilirubin Total: 0.5 mg/dL -- Normal range between ( 0.2 and 1.2 ) A/G Ratio: 1.1 -- Normal range between ( 1.1 and 2.5 ) ALT: 26 Units/Liter -- Normal range between ( 16 and 61 ) AST: 13 Units/Liter -- Normal range between ( 5 and 37 ) Globulin: 3.1 Gram/dL -- Normal range between ( 1.5 and 4.5 ) Alk Phos: 59 Units/Liter -- Normal range between ( 27 and 136 ) Protein Total: 6.4 Gram/dL -- Normal range between ( 6.4 and 8.2 ) Albumin Level: 3.3 Gram/dL -- Normal range between ( 3.4 and 5.0 ) 10/15/2019 4:34 AM Hgb A1C: 7.7 % eAVG Glucose: 174 mg/dL Cardiac Specific Markers 10/15/2019 3:52 PM CKMB: CKMB CK MB: 1.20 ng/mL -- Normal range between ( 0.50 and 3.60 ) Troponin I Ultra: <0.015 ng/mL -- Normal range between ( 0.015 and 0.045 ) 10/15/2019 4:42 AM CK: 101 Units/Liter -- Normal range between ( 39 and 308 ) Coagulation 10/14/2019 4:06 PM INR: 1.0 -- Normal range between ( 0.9 and 1.1 ) PTT: 23.0 Second(s) -- Normal range between ( 24.0 and 34.0 ) PT: 10.3 Second(s) -- Normal range between ( 9.6 and 12.0 ) Lipid Studies 10/15/2019 4:48 AM Cholesterol Tot: 114 mg/dL -- Normal range between ( 0 and 199 ) Cholesterol HDL: 44.0 mg/dL Cholesterol LDL Calculation: 48.0 mg/dL -- Normal range between ( 0.0 and 99.0 ) Cholesterol VLDL Calculation: 22.0 mg/dL -- Normal range between ( 5.0 and 40.0 ) Cholesterol/HDL Ratio: 2.6 -- Normal range between ( 0.0 and 3.2 ) Triglyceride: 110 mg/dL -- Normal range between ( 0 and 249 ) LDL/HDL Ratio: 1.1 -- Normal range between ( 0.0 and 3.6 ) Endocrinology 10/16/2019 4:12 AM TSH: 22.600 mcInt Units/mL -- Normal range between ( 0.358 and 3.740 ) T4 Total: 6.6 mcg/mL -- Normal range between ( 4.5 and 12.1 ) FT4: 0.62 ng/dL -- Normal range between ( 0.76 and 1.46 ) Computed Tomography 10/15/2019 5:[address] Head WO: CT Head WO 10/14/2019 4:[address] Brain Perfusion: CT Brain Perfusion CTA Head Code Stroke: CTA Head Code Stroke CTA Neck Code Stroke: CTA Neck Code Stroke CTA Chest Dissection: CTA Chest Dissection 10/14/2019 4:[address] Head WO Code Stroke: CT Head WO Code Stroke Diagnostic Radiology 10/16/2019 7:18 AM CR Chest 1 Vw Portable: CR Chest 1 Vw Portable Magnetic Resonance Imaging 10/15/2019 9:30 AM MRI Brain WO: MRI Brain WO Echo 10/15/2019 8:16 AM EC 2D Echo Complete W Bubble Study: EC 2D Echo Complete W Bubble Study Patient Name:DEION ANTOINE Chelsi have received and understand this information and was given the opportunity to ask questions. Patient/Mailroom Personnel Name: Patient/Mailroom Personnel Signature: Relationship to Patient: Clinician/Hospital Mailroom Personnel Signature: Date: documented in this encounter Plan of Treatment Not on file documented as of this encounter Visit Diagnoses Not on filedocumented in this encounter Care Teams Global Sales Manager Relationship Specialty Start Date End Date Marielos Amaral APRN [address] [address] PCP - General Nurse Practitioner 08/18/23 documented as of this encounter
--- OUTSIDE RECORDS SUMMARY | 2025-05-14 20:35 | XMS_ITS | Encounter Summary ---
Author Organization [employer] ([place], [place], [place], [place]) Address [address] [place] [address] Care Team Providers Care Cogeneration Operator Name Role Phone Marielos Amaral KAYE Primary Care Provider Encounter Details Date Type Department Care Team (Late st Contact Info) Description 02/05/2019 Transcribed Document [facility] [place] Family Medicine [address] [place] [address] ProviderHaroldo MD [address] [place] [address] Social History Tobacco Use Types Packs/Day Years Used Date Smoking Tobacco: Never Assessed Sex and Gender Information Value Date Recorded Sex Assigned at Not on file Legal Sex Male 3:45 PM CDT Gender Identity Not on file Sexual Orientation Not on file documented as of this encounter Miscellaneous Notes * Cerner Conversion Note - Haroldo ProviderMD - 02/05/2019 6:46 PM CDT ED Assessment Entered On: 02/05/2019 23:16 EDT Performed On: 02/05/2019 22:55 EDT by Mikayla Roberto Rn ED Quick Look Assessment Level of Consciousness : Alert, Awake Affect/Behavior : Appropriate, Calm, Cooperative Orientation : Oriented x 4 Skin Temperature : Warm Skin Description : Normal for ethnicity Mikayla Roberto Rn - 02/05/2019 23:14 EDT ED General-Functional Assess Information Obtained From : Patient Communication Barrier : None Primary Language : Guamanian Any Spiritual/Cultural Needs or Requests : No Currently in Unsafe Situation : No Budke, Tayonna, Rn - 02/05/2019 23:14 EDT Social Habits Smoking Status : Never (less than 100 in lifetime; none in last 30 days), Smoker, current status unknown Smokeless Tobacco Status : Never Desires Tobacco Cessation Medication : No Reason for No Tobacco Cessation Medication : ED/procedural patient only Desires Tobacco Cessation Calc : 1 Mikayla Roberto Rn - 02/05/2019 23:14 EDT Social History (As Of: 02/05/2019 23:16:46 EDT) Tobacco: Use in Last 12 Months: [...] 01/20/2019 12:42:45 EDT by CORRINA QUINTANA RN) Respiratory Respiratory Assessment WDL : WDL Cough : Loose Mikayla Roberto Rn - 02/05/2019 23:14 EDT Breath Sounds Assessment Grid All Lobes Breath Sounds : Diminished Mikayla Roberto Rn - 02/05/2019 23:14 EDT Respiratory Pattern Description : Regular Mikayla Roberto Rn - 02/05/2019 23:14 EDT Gastrointestinal ED Gastrointestinal Assessment WDL : WDL Budke, Tayonna, Rn - 02/05/2019 23:14 EDT Bowel Sounds Bowel Sounds All Quadrants : Active Mikayla Roberto Rn - 02/05/2019 23:14 EDT Neurologic ASMT, ED Neurologic Assessment WDL : WDL with exceptions Neurological Symptoms : Weakness Level of Consciousness : Alert, Awake Affect/Behavior : Appropriate, Calm, Cooperative Orientation : Oriented x 4 Facial Symmetry : Symmetric Uvaldo Coma Scale Link : Open GCS Neurological Assessment Comment : Weaker on the right side with both extremeties. Right side is usually dominant per patient. Mikayla Roberto Rn - 02/05/2019 23:14 EDT [place] Coma [place] Best Motor Response : Obey commands [place] Best Verbal Response : Oriented Uvaldo Eye Opening Response : Spontaneous Uvaldo Coma Score : 15 Mikayla Roberto Rn - 02/05/2019 23:14 EDT Electronically signed by Brittany [facility] Conversion Powder Coater Cerner at 01/24/2023 10:25 AM CDT documented in this encounter Plan of Treatment Not on file documented as of this encounter Visit Diagnoses Not on filedocumented in this encounter Care Teams Cogeneration Operator Relationship Specialty Start Date End Date Marielos Amaral, KAYE [address] [address] PCP - General Nurse Practitioner 08/18/23 documented as of this encounter
--- OUTSIDE RECORDS SUMMARY | 2025-05-14 20:35 | XMS_ITS | Encounter Summary ---
Author Organization [employer] ([place], [place], [place], [place]) Address [address] [place] [address] Care Team Providers Care Stop Attacher Name Role Phone Marielos Amaral KAYE Primary Care Provider Encounter Details Date Type Department Care Team (Late st Contact Info) Description 10/17/2019 Transcribed Document [facility] Family Medicine [address] [place] [address] ProviderHaroldo MD [address] [place] [address] Social History Tobacco Use Types Packs/Day Years Used Date Smoking Tobacco: Never Assessed Sex and Gender Information Value Date Recorded Sex Assigned at Not on file Legal Sex Male 3:45 PM CDT Gender Identity Not on file Sexual Orientation Not on file documented as of this encounter Miscellaneous Notes * Cerner Conversion Note - Historical ProviderMD - 10/17/2019 6:15 AM FURNACE SETTER Height and Weight, Routine Entered On: 10/17/2019 6:15 EST Performed On: 10/17/2019 6:15 EST by Emily Rich [facility] Height and Weight, Routine Routine Weight Source : Bed scale Routine Weight Entry Format : Metric Routine Weight, Kilograms : 85.1 kg(Converted to: 187 lb 10 oz) Routine Weight Calculation : 85.1 kg Height Source : Stated Height Entry Format : [place] Height, Feet : 5 ft Height, Inches : 9 Inch Clinical Height : 175.26 cm Body Surface Area (BSA), Routine : 2.01 m2 Body Mass Index (BMI), Routine : 27.71 kg/m2 Emily Rich [facility] - 10/17/2019 6:15 EST documented in this encounter Plan of Treatment Not on file documented as of this encounter Visit Diagnoses Not on filedocumented in this encounter Care Teams Stop Attacher Relationship Specialty Start Date End Date Marielos Amaral, DIGITAL STRATEGIST SENIOR MANAGER [address] [phone] PCP - General Nurse Practitioner 08/18/23 documented as of this encounter
--- OUTSIDE RECORDS SUMMARY | 2025-05-14 20:35 | XMS_ITS | Encounter Summary ---
Author Organization [email or web address] ([place], [place], [place], [place]) Address [address] [place] [address] Care Team Providers Care Stationary Engineer Name Role Phone Marielos Amaral KAYE Primary Care Provider Encounter Details Date Type Department Care Team (Late st Contact Info) Description 10/17/2019 Transcribed Document [facility] [place] Family Medicine [address] [place] [address] ProviderHaroldo MD [address] [place] [address] Social History Tobacco Use Types Packs/Day Years Used Date Smoking Tobacco: Never Assessed Sex and Gender Information Value Date Recorded Sex Assigned at Not on file Legal Sex Male 3:45 PM CDT Gender Identity Not on file Sexual Orientation Not on file documented as of this encounter Miscellaneous Notes * Cerner Conversion Note - Haroldo ProviderMD - 10/17/2019 2:11 PM GLOBAL POSITION SYSTEM TECHNICIAN Nursing Discharge Summary Entered On: 10/17/2019 14:13 EST Performed On: 10/17/2019 14:11 EST by Deysi Valdes RN Discharge Documentation Discharge Date/Time : 10/17/2019 14:30 EST Deysi Valdes RN - 11/08/2019 16:12 EST Patient Disposition, General : Discharge Discharge To : Home without planned follow-up Mode Of Departure, General Discharge : Wheelchair Accompanied By, Discharge : Spouse IV Discontinued : Yes Medications Given to Patient : No Personal Belongings With Patient : Yes Pt's Own Supply of Medications Returned : No Prescriptions Given to Patient : Yes Discharge Instructions Reviewed With, Opportunity For Questions Given : Patient Patient Education Completed : Yes Number of Prescriptions Given : 3 Teaching Method : Explanation Teaching Evaluation : Verbalizes understanding Deysi Valdes RN - 10/17/2019 14:11 EST Electronically signed by [facility], [facility] Conversion Can Runner Cerner at 01/24/2023 10:34 AM CDT documented in this encounter Plan of Treatment Not on file documented as of this encounter Visit Diagnoses Not on filedocumented in this encounter Care Teams Stationary Engineer Relationship Specialty Start Date End Date Marielos Amaral, JOB COACH [address] [place] [address] PCP - General Nurse Practitioner 08/18/23 documented as of this encounter
--- OUTSIDE RECORDS SUMMARY | 2025-05-14 20:35 | XMS_ITS | Encounter Summary ---
Author Organization [email or web address] ([place], [place], [place], [place]) Address [address] [place] [address] Care Team Providers Care Housekeeping Director Name Role Phone Marielos Amaral APRN Primary Care Provider Encounter Details Date Type Department Care Team (Late st Contact Info) Description 04/12/2020 Transcribed Document [facility] [place] Family Medicine [address] [place] [address] ProviderHaroldo MD [address] [place] [address] Social History Tobacco Use Types Packs/Day Years Used Date Smoking Tobacco: Never Assessed Sex and Gender Information Value Date Recorded Sex Assigned at Not on file Legal Sex Male 3:45 PM CDT Gender Identity Not on file Sexual Orientation Not on file documented as of this encounter Miscellaneous Notes * Cerner Conversion Note - Haroldo ProviderMD - 04/12/2020 7:37 AM CDT [facility] IntraOp Summary Primary Physician: PRINCESS DOCKERY MD-GAE Finalized Date/Time: 04/12/20 07:51:06 Pt. Name: ELINA DEION JOYCE BrittB./Sex: 1950 Male Med Rec #: [id number] Physician: PRINCESS DOCKERY MD-GAE Financial #: [id number] Pt. Type: E Room/Bed: [facility]/ Admit/Disch: 04/12/20 06:32:00 - Institution: [facility] [place] Endo - Case Attendance Entry 1 Entry 2 Entry 3 Case Attendee PRINCESS DOCKERY BRISCOE, ANTHONY W. Thayer, Dena, RN -GAE Role Performed Surgeon/Proceduralist, Scrub, First Industrial Sociologist, First First Time In 04/12/20 07:32:00 04/12/20 07:32:00 04/12/20 07:32:00 Time Out 04/12/20 07:51:00 04/12/20 07:51:00 04/12/20 07:51:00 Procedure Esophagogastroduodenosco Esophagogastroduodenosco Esophagogastroduodenosco py, EGD w py, EGD w py, EGD w Radiofrequency Radiofrequency Radiofrequency Ablation, Esophageal Ablation, Esophageal Ablation, Esophageal Biopsy Biopsy Biopsy Other Attendee Superficial Wound Closed By: Last Modified By: Roxana Brady RN Thayer, Dena, Roxana Johnson RN 04/12/20 07:48:42 04/12/20 07:48:42 04/12/20 07:48:42 Entry 4 Entry 5 Case Attendee TOVA MOELLER STIGERS, DAVID, MD-ANS PAINT STOCK CLERK-ANS Role Performed PAINT STOCK CLERK/Nurse Product Development Worker Anesthesiologist of Record Time In 04/12/20 07:32:00 04/12/20 07:32:00 Time Out 04/12/20 07:51:00 04/12/20 07:51:00 Procedure Esophagogastroduodenosco Esophagogastroduodenosco py, EGD w py, EGD w Radiofrequency Radiofrequency Ablation, Esophageal Ablation, Esophageal Biopsy Biopsy Other Attendee Superficial Wound Closed By: Last Modified By: Roxana Brady RN Thayer, Dena, RN 04/12/20 07:48:42 04/12/20 07:48:42 [facility] [place] Endo - Case Attendance Audit 04/12/20 07:48:42 Timber Grader: [id number] Modifier: [id number] 1 <+> Time Out 1 <*> Procedure Esophagogastroduodenoscopy, EGD w Radiofrequency Ablation, Esophageal Biopsy 2 <+> Time Out 2 <*> Procedure Esophagogastroduodenoscopy, EGD w Radiofrequency Ablation, Esophageal Biopsy 3 <+> Time Out 3 <*> Procedure Esophagogastroduodenoscopy, EGD w Radiofrequency Ablation, Esophageal Biopsy 4 <+> Time Out 4 <*> Procedure Esophagogastroduodenoscopy, EGD w Radiofrequency Ablation, Esophageal Biopsy 5 <+> Time Out 5 <*> Procedure Esophagogastroduodenoscopy, EGD w Radiofrequency Ablation, Esophageal Biopsy 04/12/20 07:40:20 Timber Grader: [id number] Modifier: [id number] 1 <*> Procedure Esophagogastroduodenoscopy, EGD w Radiofrequency Ablation 2 <*> Procedure Esophagogastroduodenoscopy, EGD w Radiofrequency Ablation 3 <*> Procedure Esophagogastroduodenoscopy, EGD w Radiofrequency Ablation 4 <*> Procedure Esophagogastroduodenoscopy, EGD w Radiofrequency Ablation 5 <*> Procedure Esophagogastroduodenoscopy, EGD w Radiofrequency Ablation 04/12/20 07:37:28 Timber Grader: [id number] Modifier: [id number] <+> 1 Procedure <+> 2 Time In <+> 2 Procedure <+> 3 Time In <+> 3 Procedure <+> 4 Time In <+> 4 Procedure <+> 5 Time In <+> 5 Procedure [facility] [place] Endo - Case Times Entry 1 Patient In Room Time 04/12/20 07:32:00 Out Room Time 04/12/20 07:51:00 Anesthesia Start Time 04/12/20 07:32:00 Stop Time 04/12/20 07:48:00 Surgery / Procedure Times Start Time 04/12/20 07:37:00 Stop Time 04/12/20 07:48:00 Last Modified By: Roxana Brady RN 04/12/20 07:48:40 [facility] [place] Endo - Case Times Audit 04/12/20 07:48:40 Timber Grader: [id number] Modifier: [id number] <+> 1 Out Room Time <+> 1 Stop Time <+> 1 Stop Time 04/12/20 07:37:43 Timber Grader: [id number] Modifier: [id number] <+> 1 Start Time [facility] [place] Endo - Cautery Entry 1 ESU Identification Cautery Type Other Cautery Type 90 degree RFA Comments ID Number [id number] ID Type Serial Number Cautery Settings ESU Grounding Pad Last Modified By: Roxana Brady RN 04/12/20 07:46:43 [facility] - Cultures and Spec Summary Entry 1 Cultrures and Specimens Specimen Ordered: Yes Last Modified By: Roxana Brady RN 04/12/20 07:40:59 [facility] - Delays Entry 1 Delay Reason Other Duration 0 Minute(s) Comment NO DELAY Last Modified By: Roxana Brady RN 04/12/20 07:33:50 [facility] - Departure from OR Entry 1 Integumentary Assessment Integumentary WDL Assessment WDL Transfer/Handoff Transfer to PACU Phase I Post-op Transport Stretcher/Gurney Via Patient Transport Roxana Brady, LUIS, Accompanied by TOVA MOELLER CRNA-DEX Last Modified By: Roxana Brady RN 04/12/20 07:33:54 [facility] - Endoscopy Details Entry 1 Abdomen Procedure Soft, Non-Tender Assessment Procedure Abdomen 04/12/20 07:33:00 Assessment D/T Radio Frequency Ablation Abdominal Pressure Last Modified By: Roxana Brady RN 04/12/20 07:34:07 [facility] - Fire Risk Assessment Entry 1 Fire Info Surgical Site or 1- Yes Incision Above the Xyphoid Open O2 Source 1- Yes (Mask or Cannula) Available Ignition 1- Yes (ESU, Laser, Light Source) Fire Risk 3 Assessment Score Fire Score Fire Risk Yes Assessment Complete Fire Risk Roxana Brady RN Assessment Verified By Fire Risk 04/12/20 07:34:00 Assessment Verified Date/Time Fire Risk High Risk Protocol Yes Implemented Standard Fire Yes Safety Precautions Followed Last Modified By: Roxana Brady RN 04/12/20 07:35:37 E Endo - Fire Risk Assessment Audit 04/12/20 07:35:37 Timber Grader: [id number] Modifier: [id number] <+> 1 Fire Risk Assessment Complete E Endo - General Case Building And Grounds Supervisor 1 Case Information OR Endo 01 [facility] Case Level 1 Room Verified Yes Wound Class II - Clean-Contaminated Specialty SN Gastroenterology Anesthesia Type General ASA Class 3 Diagnosis Preop Diagnosis Gerd, barretts esophagus Postop Same As Preop Yes Postop Diagnosis Gerd, barretts esophagus Last Modified By: Roxana Brady RN 04/12/20 07:35:02 [facility] - Intraoperative Assessment Entry 1 Valid History / Yes Physical in Chart Preoperative Yes Checklist Reviewed/Evaluated Patient is Latex No Sensitive Level of WDL Consciousness (WDL = Alert, Oriented to Person, Place, and Time) Present Upon ECG monitored Arrival to OR Last Modified By: Roxana Brady RN 04/12/20 07:35:23 [facility] - Intraoperative Equipment Entry 1 Equipment Intraop Monitoring Electrocardiogram Three lead placement (ECG) Electrode Placement Blood Pressure Arm, left upper Location Pulse Oximeter Hand, right Probe Site Antiembolic Devices Scopes Flexible Endoscopes Gastroscope Used Scope Serial [id number] Number/Identificatio n Number Photo/Video Documentation Photo Yes Video No Last Modified By: Roxana Brady RN 04/12/20 07:36:07 [facility] - Medication Admin Entry 1 Medication/Irrigant Mucomyst 200mg/1ml 10ml - [id number] Route of Esophageal Wash Administration Dose Dose 3 Unit of Measure ml Volume mixed in 57ml of water Administered By PRINCESS DOCKERY MD-GAE Procedure Irrigation Last Modified By: Roxana Brady RN 04/12/20 07:36:17 [facility] - Patient Positioning Entry 1 Procedure Esophagogastroduodenosco py, EGD w Radiofrequency Ablation, Esophageal Biopsy Body Position Lateral, right side up Left Arm Position Resting at side Right Arm Position Resting at side Left Leg Position Other Right Leg Position Other Position Comments Right leg over left leg uncrossed Feet Uncrossed Yes Pressure Points Yes Checked Positioned By Roxana Brady RN, TOVA MOELLER, FELICE-ANS Position Verified Positioning Yes Verified by Surgeon Last Modified By: Roxana Brady RN 04/12/20 07:40:20 [facility] - Patient Positioning Audit 04/12/20 07:40:20 Timber Grader: [id number] Modifier: [id number] 1 <*> Procedure Esophagogastroduodenoscopy, EGD w Radiofrequency Ablation [facility] - Sign In Entry 1 Patient, Site, Yes Procedure Identified Surgical Consent Yes Confirmed Surgical Site No, unable to assess - Marked by person Emergent case performing procedure Airway Hypothermia Risk No Warming Measures No Taken Last Modified By: Roxana Brady RN 04/12/20 07:37:02 [facility] - Sign Out Entry 1 RN Confirmation Surgical Yes Procedure(s) Identified Instrument, Sponge N/A and Sharps Counts Correct/Documented Equipment Problems N/A Documented Specimen Labeled Yes Correctly Urinary Catheter N/A Documented in IView Safety Checklist Yes Elements Complete? RN Sign Out Roxana Brady, RN Signature RN Sign Out 04/12/20 07:50:00 Signature Date/Time Plan of Care Outcome - [...] related to extraneous objects Last Modified By: Roxana Brady RN 04/12/20 07:50:57 [facility] - Sign Out Audit 04/12/20 07:50:57 Timber Grader: [id number] Modifier: [id number] <+> 1 RN Sign Out Signature Date/Time [facility] - Surgical Procedures Entry 1 Entry 2 Entry 3 Procedure Esophagogastroduodenosco EGD w Radiofrequency Esophageal Biopsy py Ablation Modifiers Additional Procedure Description Primary Procedure Yes No No Primary Surgeon PRINCESS DOCKERY, PRINCESS DOCKERY, PRINCESS DOCKERY MD-GAE MD-GAE MD-GAE Start 04/12/20 07:37:00 04/12/20 07:37:00 04/12/20 07:37:00 Stop 04/12/20 07:48:00 04/12/20 07:48:00 04/12/20 07:48:00 Physician States Cecum Reached Anesthesia Type MAC MAC MAC Specialty SN Gastroenterology SN Gastroenterology SN Gastroenterology Wound Class II - Clean-Contaminated II - Clean-Contaminated II - Clean-Contaminated Last Modified By: Roxana Brady, Roxana Johnson, RN Roxana Brady, LUIS 04/12/20 07:48:56 04/12/20 07:48:56 04/12/20 07:48:56 E Endo - Surgical Procedures Audit 04/12/20 07:48:56 Timber Grader: [id number] Modifier: [id number] 1 <*> Procedure Esophagogastroduodenoscopy 1 <+> Stop 2 <*> Procedure EGD w Radiofrequency Ablation 2 <+> Stop 3 <*> Procedure Esophageal Biopsy 3 <+> Stop 04/12/20 07:48:27 Timber Grader: [id number] Modifier: [id number] 1 <*> Procedure Esophagogastroduodenoscopy 2 <*> Procedure EGD w Radiofrequency Ablation 3 <*> Procedure Esophageal Biopsy 04/12/20 07:40:16 Timber Grader: [id number] Modifier: [id number] <+> 3 Procedure <+> 3 Primary Procedure <+> 3 Primary Surgeon <+> 3 Specialty <+> 3 Start <+> 3 Wound Class <+> 3 Anesthesia Type 04/12/20 07:38:44 Timber Grader: [id number] Modifier: [id number] 2 <*> Procedure EGD w Radiofrequency Ablation 2 <+> Specialty 2 <+> Start [facility] - Time Out Entry 1 Procedure to be Esophagogastroduodenosco Performed py, EGD w Radiofrequency Ablation, Esophageal Biopsy Time Out Time Out Pause Time 04/12/20 07:35:00 All activity Yes suspended (unless life threatening emergency) Team Verbally Correct patient Confirms Information identity, Consent form is present and accurate, Agreement on the procedure to be done, Correct patient position, Relevant images/results properly labeled/appropriately displayed, Reconcile problems if responses among team members differ Antibiotic N/A Prophylaxis Administered Or In Progress Within the Last 60 Minutes Beta Frank N/A Administered Venous N/A Thromboembolism Prophylaxis Required Anticipated Critical Events Surgeon None expected Last Modified By: Roxana Brady RN 04/12/20 07:40:21 [facility] - Time Out Audit 04/12/20 07:40:21 Timber Grader: [id number] Modifier: [id number] 1 <*> Procedure to be Performed Esophagogastroduodenoscopy, EGD w Radiofrequency Ablation 04/12/20 07:39:25 Timber Grader: [id number] Modifier: [id number] 1 <*> Procedure to be Performed Esophagogastroduodenoscopy, EGD w Radiofrequency Ablation Case Comments <None> Finalized By: Roxana Brady RN Document Signatures Signed By: Roxana Brady RN 04/12/20 07:51 documented in this encounter Plan of Treatment Not on file documented as of this encounter Visit Diagnoses Not on filedocumented in this encounter Care Teams Housekeeping Director Relationship Specialty Start Date End Date Marielos Amaral, CITY SUPERINTENDENT [address] [address] PCP - General Nurse Practitioner 08/18/23 documented as of this encounter
--- OUTSIDE RECORDS SUMMARY | 2025-05-14 20:35 | XMS_ITS | Encounter Summary ---
Author Organization [employer] ([place], [place], [place], [place]) Address [address] [place] [address] Care Team Providers Care Milling Supervisor Name Role Phone Marielos Amaral KAYE Primary Care Provider Encounter Details Date Type Department Care Team (Late st Contact Info) Description 02/06/2019 Transcribed Document [facility] [place] Family Medicine [address] [place] [id number] ProviderHaroldo MD [address] [place] [id number] Social History Tobacco Use Types Packs/Day Years Used Date Smoking Tobacco: Never Assessed Sex and Gender Information Value Date Recorded Sex Assigned at Not on file Legal Sex Male 3:45 PM CDT Gender Identity Not on file Sexual Orientation Not on file documented as of this encounter Miscellaneous Notes * Cerner Conversion Note - Haroldo ProviderMD - 02/06/2019 12:17 AM CDT Evaluation, Physical Therapy Entered On: 02/06/2019 15:28 EDT Performed On: 02/06/2019 15:13 EDT by ARYAN GOSS, PT General Information, PT Visit Type, PT : Initial evaluation Patient Orders : Order Date Order Ordering 02/06/2019 00:17 PT Evaluation and Treatment Ordered By: FIORELLA OWENS MD-INT Active Diagnoses : 02/05/2019 00:00 Ataxia, unspecified 02/05/2019 00:00 Weakness Therapy Diagnosis, PT : imparied mobility due to CVA. Onset of Problem, PT : 02/05/2019 EDT Admission Date : 02/05/2019 23:59 Personal Devices : Personal Devices No Devices Recorded Assistive Devices : Assistive Devices No Devices Recorded General Information Comment, PT : Pt adm with RUE/LE weakness and ataxia. Dx with CVA. PMH of A fib, HTN and CABG x 2 years ago. ARYAN GOSS, PT - 02/06/2019 15:13 EDT General Status Patient Received Status : Supine in bed Treatment Start Time : 02/06/2019 14:43 EDT Patient Left Status : Supine in bed, RN/PCT informed, Family/Visitors at bedside, All needs met and within reach Treatment End Time : 02/06/2019 15:05 EDT Treatment Time : 22 Minute(s) ARYAN GOSS, PT - 02/06/2019 15:13 EDT History and Environment Living Situation, Therapy : Home Patient Lives With : Spouse Persons Assisting Patient at Home : Alone Professional Skilled Services : None Persons Providing Information : Patient, Spouse Home Equipment Therapy, PT : Cane, Commode, Shower Equipment, Walker Cane : Cane, single point Commode : Commode, bedside Shower Equipment : Shower Chair, with back Walker : Walker, front wheel Home Setup : Basement, One story Bedroom Location : Main level Bathroom #1 Location : Main level Bathroom #1 Features : Toilet, Tub/Shower Stairs : Yes Stair Location(s) : Inside, Outside Inside Stairs, Number of Steps : 12 Stairs Inside Comment : to basement Outside Stairs, Number of Steps : 4 Railing Inside : Yes Railing Outside : Yes Outside Railing Position : Bilateral ARYAN GOSS, PT - 02/06/2019 15:13 EDT Prior Level of Function PT GRID Prior LOF Ambulation, Household : Independent Prior LOF Ambulation, Community : Independent Prior LOF Bed Mobility : Independent Prior LOF Toileting : Independent Prior LOF Transfer : Independent Prior LOF Wheel Chair Mobility : na ARYAN GOSS, PT - 02/06/2019 15:13 EDT Prior LOF Assist with ADL Comment : Indep all ADL and still driving prior to CVA. ARYAN GOSS, PT - 02/06/2019 15:13 EDT Upper Extremity Right UE Active Assist ROM : WFL Left UE Active ROM : WFL Left UE Strength : WFL Upper Extremity Comment : Pt actively moving RUE through 90% of available ROM with flex/extensor synergy influence and ataxia. ARYAN GOSS PT - 02/06/2019 15:13 EDT Lower Extremity RLE Active ROM : WFL LLE Active ROM : WFL Left LE Strength : WFL Lower Extremity Comment : Strength RLE grossly 01/08 with ataxia present during active movement. ARYAN GOSS, PT - 02/06/2019 15:13 EDT Functional Mobility Mobility Grid Supine to Sit : Rehab Modified independence (Comment: HOB at 40 degrees. [ARYAN GOSS, PT - 02/06/2019 15:13 EDT] ) Sit to Stand : Rehab Minimal assistance (Comment: min/S [ARYAN GOSS PT - 02/06/2019 15:13 EDT] ) Stand to Sit : Supervision/set-up (Comment: close supervision [ARYAN GOSS PT - 02/06/2019 15:13 EDT] ) Sit to Supine : Rehab Modified independence (Comment: HOB at 30 degrees. [ARYAN GOSS, PT - 02/06/2019 15:13 EDT] ) ARYAN GSOS PT - 02/06/2019 15:13 EDT Supine to Sit Device : Rails Sit to Stand Device : None, Belt, gait, Other: [employer] INS[employer] SALES of 1 Stand to Sit Device : None, Belt, gait, Other: [employer] of 1 Sit to Supine Devices : Rails Functional MobilityComment : Pt impulsive with mobilitty and movement of RUE/LE ataxic. Verbal cues to slow movement in order to improve safety. Pt sitting EOB indep in midline when static. When moving BUE or LE pt tends to lean to L and posteriorly to improve stability. ARYAN GOSS PT - 02/06/2019 15:13 EDT Gait Training/Assessment, PT Weight Bearing Status Maintained : Yes Weight Bearing Status : Full Gait Assistance Level : Assist, minimal Walking Distance : 180 ft with min LIFE INSURANCE SALES due to min ataxia. pt with 2-3 occasions of LOB and 1 episode of R toe drag during R swing phase. Verbal cues to slow janna to reduce ataxia. and improve dynamic balance. Ambulatory Devices : Gait belt, Other: [employer] SAL[employer] of 1 Gait Deviations : Yes Left Lower Gait Deviation : Janna, decreased, Step length, decreased Right Lower Gait Deviation : Ataxia, Janna, decreased, Stance time, decreased, Swing phase, toe drag, Weight bearing, decreased ARYAN GOSS, PT - 02/06/2019 15:13 EDT Cognition Assessment, PT Orientation : Oriented x 4 ARYAN GOSS, PT - 02/06/2019 15:13 EDT Edu Topics Physical Therapy Education Grid Bed Mobility Training : Returns demonstration, Needs further teaching Gait Training : Returns demonstration, Needs further teaching, Needs reinforcement Role of Physical Therapy : Verbalizes understanding Safety : Returns demonstration, Needs further teaching Physical Therapy, Other : Verbalizes understanding (Comment: Pt and educated regarding POC. [ARYAN GOSS, PT - 02/06/2019 15:13 EDT] ) Indication Assesessment, PT Physical Therapy Indicated : Yes PT Problem List : Impaired, bed mobility, Impaired, coordination/proprioception, Impaired, endurance tolerance, Impaired, gait, Impaired, sitting balance, Impaired, standing balance, Impaired, strength, Impaired, transfers Potential Barriers To Therapy : None evident Rehabilitation Potential : At prior level of function ARYAN GOSS, PT - 02/06/2019 15:13 EDT Plan of Care, PT PT Tx Plan/Goals Established w Patient : Yes PT Frequency Rehab : Daily PT Duration Rehab : Fourteen days PT Treatments Planned : Bed mobility training, Gait training, Safety education, Therapeutic exercises, Transfer training ARYAN GOSS, PT - 02/06/2019 15:13 EDT Computer Applications Developer Goals Mobility/Bed Mobility LTG PT Grid Goal #1 Goal #2 Activity : Supine to sit Sit to stand Assist : Independent, complete Independent, complete Date to Meet : 02/20/2019 EDT 02/20/2019 EDT Goal Status : Intial Goal Intial Goal Comment : HOB flat ARYAN GOSS, PT - 02/06/2019 15:13 EDT ARYAN GOSS, PT - 02/06/2019 15:13 EDT Ambulation LTG Grid Goal #1 Device : Other: no AD vs SPC Distance : 300 ft Assist : Independent, modified Date to Meet : 02/20/2019 EDT Goal Status : Intial Goal ARYAN GOSS PT - 02/06/2019 15:13 EDT Treatment Note Subjective Comment : Pt agreeable to treatment. Assessment : Pt adm with RUE/LE weakness and ataxic gait due to CVA. He requires skilled PT to return to his indep PLOF. Pt may need outpatient PT upon discharge. Plan for Treatment : See POC. ARYAN GOSS, PT - 02/06/2019 15:13 EDT Pain Assessment Pain Scaled Used : 0-10 Pain scale Pain Score During-Intervention : 0 ARYAN GOSS PT - 02/06/2019 15:13 EDT Image 1 - Images currently included in the form version of this document have not been included in the text rendition version of the form. Anticipated Discharge Needs, OT/PT Anticipated Discharge to : Outpatient rehabilitation ARYAN GOSS, PT - 02/06/2019 15:13 EDT [facility] Charges PT Eval Low Complexity : 1 ARYAN GOSS PT - 02/06/2019 15:13 EDT Electronically signed by Brittany [facility] Conversion Airworthiness Inspector Cerner at 01/24/2023 10:26 AM CDT documented in this encounter Plan of Treatment Not on file documented as of this encounter Visit Diagnoses Not on filedocumented in this encounter Care Teams Milling Supervisor Relationship Specialty Start Date End Date Marielos Amaral, ELEVATOR INSPECTOR [address] [id number] PCP - General Nurse Practitioner 08/18/23 documented as of this encounter
--- OUTSIDE RECORDS SUMMARY | 2025-05-14 20:35 | XMS_ITS | Encounter Summary ---
Author Organization [employer] ([place], [place], [place], [place]) Address [address] [place] [address] Care Team Providers Care Finish Painter Name Role Phone Marielos Amaral APRN Primary Care Provider Encounter Details Date Type Department Care Team (Late st Contact Info) Description 04/12/2020 Transcribed Document [facility] Family Medicine [address] [place] [address] ProviderHaroldo MD [address] [place] [address] Social History Tobacco Use Types Packs/Day Years Used Date Smoking Tobacco: Never Assessed Sex and Gender Information Value Date Recorded Sex Assigned at Not on file Legal Sex Male 3:45 PM CDT Gender Identity Not on file Sexual Orientation Not on file documented as of this encounter Miscellaneous Notes * Cerner Conversion Note - Haroldo ProviderMD - 04/12/2020 7:37 AM CDT [facility] PACU Summary Primary Physician: PRINCESS DOCKERY MD-GAE Finalized Date/Time: 04/12/20 08:30:45 Pt. Name: ELINA DEION JOYCE BrittB./Sex: 1950 Male Med Rec #: [id number] Physician: PRINCESS DOCKERY MD-GAE Financial #: [id number] Pt. Type: E [place] [facility] [place] Admit/Disch: 04/12/20 06:32:00 - Institution: [facility] PACU Case Times Entry 1 In PACU I 04/12/20 07:53:00 Ready for PACU 04/12/20 08:26:00 Discharge Discharge from PACU 04/12/20 08:29:00 I [facility] PACU Case Times Audit 04/12/20 08:30:01 Inspector Tester Sorter: [id number] Modifier: [id number] <+> 1 Ready for PACU Discharge <+> 1 Discharge from PACU I Finalized By: Roxana Brady, RN Document Signatures Signed By: Roxana Brady, LUIS 04/12/20 08:30 documented in this encounter Plan of Treatment Not on file documented as of this encounter Visit Diagnoses Not on filedocumented in this encounter Care Teams Finish Painter Relationship Specialty Start Date End Date Marielos Amaral, SPARE FIXER [address] [phone] PCP - General Nurse Practitioner 08/18/23 documented as of this encounter
--- OUTSIDE RECORDS SUMMARY | 2025-05-14 20:35 | XMS_ITS | Encounter Summary ---
Author Organization [employer] ([place], [place], [place], [place]) Address [address] [place] [address] Care Team Providers Care Steam Finisher Name Role Phone Marielos Amaral STRETCHER DRIER OPERATOR Primary Care Provider Encounter Details Date Type Department Care Team (Late st Contact Info) Description 01/20/2019 Transcribed Document [facility] [place] Family Medicine [address] [place] [address] ProviderHaroldo MD [address] [place] [address] Social History Tobacco Use Types Packs/Day Years Used Date Smoking Tobacco: Never Assessed Sex and Gender Information Value Date Recorded Sex Assigned at Not on file Legal Sex Male 3:45 PM CDT Gender Identity Not on file Sexual Orientation Not on file documented as of this encounter Miscellaneous Notes * Cerner Conversion Note - Haroldo ProviderMD - 01/20/2019 2:38 PM CDT [address] [address] ELINA ZACKARY COOK :1950 Visit [...] up with Dr Lopez as needed Where: [address] [place] [address]- Medications What How Much When Instructions Next [...] Document Reviewed: 12/01/2012 ExitCare?? Patient Information ??2015 [employer] This information is not intended to replace [...] including vitamins, herbs, eye drops, creams, and clan-opb-lzmglso medicines. ???Previous problems you or members of [...] Document Reviewed: 08/25/2013 ExitCare?? Patient Information ??2015 [employer]. This information is not intended to replace [...] including vitamins, herbs, eye drops, creams, and pczm-jtw-vggtzrj medicines. ??? Previous problems you or members [...] 07/13/2014 Document Revised: 10/13/2015 Document Reviewed: 07/13/2014 [employer] Interactive Patient Education ?? 2017 [employer]. Emergency Awareness and Preventative Care STROKE is [...] Assistance with quitting is available by contacting 0-569-BHLC-NOW. This is a free resource providing counseling, [...] Be sure to sign up for the [facility] patient portal, which gives you 28/04 access to your medical information ??? including these discharge instructions ??? using your computer, smartphone, or tablet. Just go to Playviews to get started. Questions? Call . Test Results Laboratory or Other Results This Visit (last charted value for your 01/20/2019 visit) General Chemistry 01/20/19 12:42:00 Glucose POC2: 182 mg/dL -- Normal range between ( 70 and 110 ) Patient Name:ZACKARY ANTOINE I have received this information and was given the opportunity to ask questions. Patient/Route Sales Specialist Name: Patient/Route Sales Specialist Signature: Relationship to Patient: Clinician/Hospital Route Sales Specialist Signature: Date: Electronically signed by Brittany, Renetta Conversion Internet Marketing Manager [employer] at 01/24/2023 10:28 AM CDT documented in this encounter Plan of Treatment Not on file documented as of this encounter Visit Diagnoses Not on filedocumented in this encounter Care Teams Steam Finisher Relationship Specialty Start Date End Date Marielos Amaral, STRETCHER DRIER OPERATOR [address] [phone] PCP - General Nurse Practitioner 08/18/23 documented as of this encounter
--- OUTSIDE RECORDS SUMMARY | 2025-05-14 20:35 | XMS_ITS | Encounter Summary ---
Author Organization [employer] ([place], [place], [place], [place]) Address [address] [place] [address] Care Team Providers Care Hat Lining Blocker Name Role Phone Marielos Amaral MILIEU COORDINATOR Primary Care Provider Encounter Details Date Type Department Care Team (Late st Contact Info) Description 02/06/2019 Transcribed Document [facility] [place] Family Medicine [address] [place] [address] ProviderHaroldo MD [address] [place] [address] Social History Tobacco Use Types Packs/Day Years Used Date Smoking Tobacco: Never Assessed Sex and Gender Information Value Date Recorded Sex Assigned at Not on file Legal Sex Male 3:45 PM CDT Gender Identity Not on file Sexual Orientation Not on file documented as of this encounter Miscellaneous Notes * Cerner Conversion Note - Haroldo ProviderMD - 02/06/2019 9:37 AM CDT ED Discharge Entered On: 02/06/2019 9:37 EDT Performed On: 02/06/2019 9:37 EDT by ANABELA WHEELER RN Discharge Process Patient Disposition : Admit/Observe Personal Belongings With Patient : Yes Patient Education Completed : Yes Teaching Evaluation : Verbalizes understanding Link to Valuables and Belongings form : No IV Discontinued : No Nursing Documentation Completed : Yes ANABELA WHEELER RN - 02/06/2019 9:37 EDT Electronically signed by Brittany [facility] Conversion Automobile Engine Assembler Cerner at 01/24/2023 10:23 AM CDT documented in this encounter Plan of Treatment Not on file documented as of this encounter Visit Diagnoses Not on filedocumented in this encounter Care Teams Hat Lining Blocker Relationship Specialty Start Date End Date Marielos Amaral, KAYE [address] [place] [phone] PCP - General Nurse Practitioner 08/18/23 documented as of this encounter
--- OUTSIDE RECORDS SUMMARY | 2025-05-14 20:35 | XMS_ITS | Encounter Summary ---
Author Organization [email or web address] ([place], [place], [place], [place]) Address [address] [place] [address] Care Team Providers Care Wire Stripper Name Role Phone Marielos Amaral APRN Primary Care Provider Encounter Details Date Type Department Care Team (Late st Contact Info) Description 10/17/2019 Transcribed Document [facility] [place] Family Medicine [address] [place] [address] ProviderHaroldo MD [address] [place] [address] Social History Tobacco Use Types Packs/Day Years Used Date Smoking Tobacco: Never Assessed Sex and Gender Information Value Date Recorded Sex Assigned at Not on file Legal Sex Male 3:45 PM CDT Gender Identity Not on file Sexual Orientation Not on file documented as of this encounter Miscellaneous Notes * Cerner Conversion Note - Haroldo ProviderMD - 10/17/2019 1:30 PM CHILD WELFARE COUNSELOR [facility] [address] [place] [id number] DEION ANTOINE :1950 Visit Time:10/14/2019 Your Visit Summary Your Care Team Admitting Physician - PETRA TORRES MD-INT PHY, UNKNOWN FANY MCCRACKEN MD Attending Physician - PETRA TORRES MD-INT FANY MCCRACKEN MD Primary Care Physician - KATELYN MCKEON MD-[facility] Referring Physician - FANY MCCRACKEN MD Your [...] (carb controlled) Follow-Up Appointments Follow Up with [facility] Cardiology When Within 1 to 2 weeks Comments for stress test Follow Up with Follow up with primary care provider When Within 2 weeks Comments check TSH Follow Up with ALBERTO RIZVI When Within 6 weeks Comments Patient should call for a follow up appointment with [facility]. Where: [address] [place] [address] [facility] (1) Warfarin Instructions Notify Provider of Signs/Symptoms of: Significant bleeding, [...] MD My LDL Level: My LDL Level: Anticoagulant/Anti-Platelet/Medications: I will not stop taking my meds unless instructed by [facility] Discharge After a Stroke [...] 12/26/2017 Document Revised: 12/26/2017 Document Reviewed: 12/26/2017 [employer] Interactive Patient Education ?? 2019 [employer] Stroke Prevention Some medical conditions and [...] lot or have excessive sleepiness. ??? Take xklb-xqu-uonopao and prescription medicines only as told by [...] more information For more information, visit: ??? [place] Stroke Association: www.strokeassociation.org ??? National Stroke Association: [...] 10/30/2005 Document Revised: 10/28/2017 Document Reviewed: 10/28/2017 [employer] Interactive Patient Education ?? 2019 [employer]. nitroglycerin (oral/sublingual) (ANTONIETTA troe GLI ser in [...] may report side effects to FDA at 8-337-VKW-5789. What other drugs will affect nitroglycerin? Tell your doctor about all your current medicines, especially: ?? aspirin, heparin; ?? medicine used to treat blood clots; ?? blood pressure medication; or ?? ergot medicine--dihydroergotamine, ergotamine, ergonovine, methylergonovine. This list is not complete and many other drugs may affect nitroglycerin. This includes prescription and lhgp-tkx-ngklhix medicines, vitamins, and herbal products. Not all [...] to ensure that the information provided by [employer]. ('[employer]') is accurate, up-to-date, and complete, but no guarantee is made to that effect. Drug information contained herein may be time sensitive. [employer] information has been compiled for use by healthcare practitioners and consumers in the [place] and therefore [employer] does not warrant that uses outside of the [place] are appropriate, unless specifically indicated otherwise. [employer] drug information does not endorse drugs, diagnose patients or recommend therapy. [employer] drug information is an informational resource designed [...] effective or appropriate for any given patient. [employer] does not assume any responsibility for any aspect of healthcare administered with the aid of information [employer] provides. The information contained herein is not intended to cover all possible uses, directions, precautions, warnings, drug interactions, allergic reactions, or adverse effects. If you have questions about the drugs you are taking, check with your doctor, nurse or pharmacist. Copyright 8112-5414 [employer]. Version: 15.01. Revision Date: 08/12/2019. levothyroxine (oral/injection) (VERA duncane esperanza ASHLY een) Levoxyl, Synthroid, Tirosint, Unithroid What [...] may report side effects to FDA at 5-306-HMD-1259. What other drugs will affect levothyroxine? Many [...] can affect levothyroxine. This includes prescription and wian-roe-vmylmpv medicines, vitamins, and herbal products. Not all [...] to ensure that the information provided by [employer]. ('[employer]') is accurate, up-to-date, and complete, but no guarantee is made to that effect. Drug information contained herein may be time sensitive. [employer] information has been compiled for use by healthcare practitioners and consumers in the [place] and therefore [employer] does not warrant that uses outside of the [place] are appropriate, unless specifically indicated otherwise. [employer] drug information does not endorse drugs, diagnose patients or recommend therapy. [employer] drug information is an informational resource designed [...] effective or appropriate for any given patient. [employer] does not assume any responsibility for any aspect of healthcare administered with the aid of information [employer] provides. The information contained herein is not intended to cover all possible uses, directions, precautions, warnings, drug interactions, allergic reactions, or adverse effects. If you have questions about the drugs you are taking, check with your doctor, nurse or pharmacist. Copyright 9732-3111 [employer]. Version: 13.04. Revision Date: 05/05/2019. Emergency Awareness [...] Assistance with quitting is available by contacting 2-082-PWLU-NOW. This is a free resource providing counseling, [...] range between ( 0.0 and 7.0 ) [place] #: 0.73 K/uL -- Normal range between ( 0.16 and 1.00 ) [place] #: 0.12 x10(3)/uL -- Normal range between ( 0.00 and 0.80 ) [place] %: 8.7 % -- Normal range between [...] Complete W Bubble Study Patient Name:DEION ANTOINE I have received and understand this information and was given the opportunity to ask questions. Patient/Mutuel Teller Name: Patient/Mutuel Teller Signature: Relationship to Patient: Clinician/Hospital Mutuel Teller Signature: Date: Electronically signed by Brittany, [facility] Conversion Hand Rounder Cerner at 01/24/2023 10:35 AM CDT documented in this encounter Plan of Treatment Not on file documented as of this encounter Visit Diagnoses Not on filedocumented in this encounter Care Teams Wire Stripper Relationship Specialty Start Date End Date Marielos Amaral, ANTHROPOLOGY AND ARCHEOLOGY INSTRUCTOR [address] [place] [address] PCP - General Nurse Practitioner 08/18/23 documented as of this encounter
--- OUTSIDE RECORDS SUMMARY | 2025-05-14 20:35 | XMS_ITS | Encounter Summary ---
Author Organization [employer] ([place], [place], [place], [place]) Address [address] [place] [address] Care Team Providers Care Display Fabrication Supervisor Name Role Phone Marielos Amaral KAYE Primary Care Provider [phone] Encounter Details Date Type Department Care Team (Late st Contact Info) Description 02/06/2019 Transcribed Document [facility] [place] [address] [place] [address] ProviderHaroldo MD [address] [place] [id number] Social History Tobacco Use Types Packs/Day Years Used Date Smoking Tobacco: Never Assessed Sex and Gender Information Value Date Recorded Sex Assigned at Not on file Legal Sex Male 3:45 PM CDT Gender Identity Not on file Sexual Orientation Not on file documented as of this encounter Miscellaneous Notes * Cerner Conversion Note - Haroldo ProviderMD - 02/06/2019 3:28 PM CDT Treatment Intervention, PT Entered On: 02/07/2019 9:08 EDT Performed On: 02/07/2019 9:03 EDT by FANY FREEMAN PT General Information, PT Visit Type, PT : Treatment Note Patient Orders : Order Date Order Ordering 02/06/2019 00:17 PT Evaluation and Treatment Ordered By: FIORELLA OWENS MD-INT 02/06/2019 15:28 PT Additional Treatment Ordered By: ARYAN GOSS, JEAN Active Diagnoses : 02/05/2019 00:00 Ataxia, unspecified 02/05/2019 00:00 Weakness Admission Date : 02/05/2019 23:59 Assisted by, PT : orthodontic technician/aide Personal Devices : Personal Devices No Devices Recorded Assistive Devices : Assistive Devices No Devices Recorded FANY FREEMAN PT - 02/07/2019 9:03 EDT General Status Patient Received Status : Other: up in bathroom Treatment Start Time : 02/07/2019 8:47 EDT Patient Left Status : Supine in bed, RN/PCT informed, All needs met and within reach Treatment End Time : 02/07/2019 9:03 EDT Treatment Time : 16 Minute(s) Actual Treatment Time : 16 Minute(s) FANY FREEMAN, PT - 02/07/2019 9:03 EDT Functional Mobility Mobility Grid Stand to Sit : Rehab Complete independence Sit to Supine : Rehab Complete independence FANY FREEMAN, PT - 02/07/2019 9:03 EDT Gait Training/Assessment, PT Weight Bearing Status : Full Gait Assistance Level : Supervision Walking Distance : 275' Ambulatory Devices : None, Gait belt Gait Deviations : No Left Lower Gait Deviation : Wide base of support Right Lower Gait Deviation : Wide base of support Gait Training Comment : modestly increased width douglas and decreased rught arm swing. Patient able negotiate a tight 3 object sloslam without loss of balance or striking object FANY FREEMAN, PT - 02/07/2019 9:03 EDT Edu Topics Physical Therapy Education Grid Bed Mobility Training : Returns demonstration Gait Training : Returns demonstration Transfer Training : Returns demonstration FANY FREEMAN, PT - 02/07/2019 9:03 EDT Plan of Care, PT PT Tx Plan/Goals Established w Patient : Yes FANY FREEMAN, PT - 02/07/2019 9:03 EDT [place] Goals Stairs LTG Grid Goal #1 Device : None Number of Steps : 4 Handrail(s) : One handrail Assist : Independent, modified Date to Meet : 02/21/2019 EDT FANY FREEMAN, PT - 02/07/2019 12:21 EDT Mobility/Bed Mobility LTG PT Grid Goal #1 Goal #2 Activity : Supine to sit Sit to stand Assist : Independent, complete Independent, complete Date to Meet : 02/20/2019 EDT 02/20/2019 EDT Goal Status : Goal met Goal met Date Met : 02/07/2019 EDT 02/07/2019 EDT Comment : HOB flat FANY FREEMAN, PT - 02/07/2019 12:18 EDT FANY FREEMAN, PT - 02/07/2019 12:18 EDT Ambulation LTG Grid Goal #1 Device : Other: no AD vs SPC Distance : 300 ft Assist : Independent, modified Date to Meet : 02/20/2019 EDT Goal Status : Goal met Date Met : 10/06/2018 EST FANY FREEMAN, PT - 02/07/2019 12:18 EDT Treatment Note Subjective Comment : agreed to PT, feeling better Assessment : The patient still show minor gait deficits related to his CVA but is fuctional for home level function and most community level mobility. His remaining deficits would most appropraitely be addressed on an outpaient basis. Plan for Treatment : cont poc FANY FREEMAN, PT - 02/07/2019 12:21 EDT Pain Assessment Pain Scaled Used : 0-10 Pain scale Pain Score Pre-Intervention : 0 Pain Score During-Intervention : 0 Pain Score Post-Intervention. : 0 FANY FREEMAN, PT - 02/07/2019 12:21 EDT Image 1 - Images currently included in the form version of this document have not been included in the text rendition version of the form. Anticipated Discharge Needs, OT/PT Anticipated Discharge to : Outpatient rehabilitation Anticipated Home Equipment : None FANY FREEMAN, PT - 02/07/2019 12:[address] [facility] PT Charges Gait Training Each 15 Min : 1 FANY FREEMAN PT - 02/07/2019 9:03 EDT documented in this encounter Plan of Treatment Not on file documented as of this encounter Visit Diagnoses Not on filedocumented in this encounter Care Teams Display Fabrication Supervisor Relationship Specialty Start Date End Date Marielos Amaral APRN [address] [address] PCP - General Nurse Practitioner 08/18/23 documented as of this encounter
--- OUTSIDE RECORDS SUMMARY | 2025-05-14 20:35 | XMS_ITS | Encounter Summary ---
Author Organization [employer] ([place], [place], [place], [place]) Address [address] [place] [address] Care Team Providers Care Sweatband Decorating Machine Operator Name Role Phone Marielos Amaral APRN Primary Care Provider Encounter Details Date Type Department Care Team (Late st Contact Info) Description 10/17/2019 Transcribed Document [facility] [place] [address] [place] [address] ProviderHaroldo MD [address] [place] [address] Social History Tobacco Use Types Packs/Day Years Used Date Smoking Tobacco: Never Assessed Sex and Gender Information Value Date Recorded Sex Assigned at Not on file Legal Sex Male 3:45 PM CDT Gender Identity Not on file Sexual Orientation Not on file documented as of this encounter Miscellaneous Notes * Cerner Conversion Note - Haroldo ProviderMD - 10/17/2019 1:46 PM BALANCE BRIDGE INSPECTOR [facility] [address] [place] [id number] DEION ANTOINE :1950 Visit Time:10/14/2019 Your Visit Summary Your Care Team Admitting Physician - PETRA TORRES MD-INT PHY, UNKNOWN FANY MCCRACKEN MD Attending Physician - PETRA TORRES MD-INT FANY MCCRACKEN MD Primary Care Physician - KATELYN MCKEON MD-[facility] Referring Physician - FANY MCCRACKEN MD Your Diagnosis Cerebral infarction, unspecified, Cerebral infarction, unspecified, Stroke Chest pain Chest pain Hypertensive emergency Hypertensive urgency Right leg weakness Discharge Vitals Temperature 36.4 ??C Heart Rate (Monitored) 64 Respiratory Rate 20 Blood Pressure 127/58 What to do next Instructions From Your Care Team Do not drive or operate heavy equipment until released by physician Discharge Activity: follow neurology instruction, Discharge Activity: Other (use Special Instructions) Diet: Discharge Diet: Diabetic diet (carb controlled) Follow-Up Appointments Follow Up with [facility] Cardiology When Within 1 to 2 weeks Comments for stress test Follow Up with Follow up with primary care provider When Within 2 weeks Comments check TSH Follow Up with ALBERTO RIZVI When Within 6 weeks Comments Patient should call for a follow up appointment with [facility] Neurology. Where: [address] [place] [id number] [facility] (1) Warfarin Instructions Indication for Warfarin Anticoagulation: [...] Sudden dizziness or trouble with gait, Call 9-1-1: EMS activation is crucial Mutually Agreed Upon [...] 12/26/2017 Document Revised: 12/26/2017 Document Reviewed: 12/26/2017 [employer] Interactive Patient Education ?? 2019 [employer] Stroke Prevention Some medical conditions and [...] lot or have excessive sleepiness. ??? Take fobv-uue-mnvngto and prescription medicines only as told by [...] more information For more information, visit: ??? [place] Stroke Association: www.strokeassociation.org ??? National Stroke Association: [...] 10/30/2005 Document Revised: 10/28/2017 Document Reviewed: 10/28/2017 [employer] Interactive Patient Education ?? 2019 [employer]. nitroglycerin (oral/sublingual) ([place] troe GLI ser in [...] may report side effects to FDA at 0-819-ITB-6561. What other drugs will affect nitroglycerin? Tell your doctor about all your current medicines, especially: ?? aspirin, heparin; ?? medicine used to treat blood clots; ?? blood pressure medication; or ?? ergot medicine--dihydroergotamine, ergotamine, ergonovine, methylergonovine. This list is not complete and many other drugs may affect nitroglycerin. This includes prescription and xurl-pbn-lfhtgtx medicines, vitamins, and herbal products. Not all [...] to ensure that the information provided by [employer]. ('[employer]') is accurate, up-to-date, and complete, but no guarantee is made to that effect. Drug information contained herein may be time sensitive. [employer] information has been compiled for use by healthcare practitioners and consumers in the [place] and therefore [employer] does not warrant that uses outside of the [place] are appropriate, unless specifically indicated otherwise. [employer]'s drug information does not endorse drugs, diagnose patients or recommend therapy. [employer] drug information is an informational resource designed [...] effective or appropriate for any given patient. [employer] does not assume any responsibility for any aspect of healthcare administered with the aid of information Be[employer] provides. The information contained herein is not intended to cover all possible uses, directions, precautions, warnings, drug interactions, allergic reactions, or adverse effects. If you have questions about the drugs you are taking, check with your doctor, nurse or pharmacist. Copyright 3418-4871 [employer]. Version: 15.01. Revision Date: 08/12/2019. levothyroxine (oral/injection) [...] your body absorb less levothyroxine: grapefruit juice, soy formula, soybean flour, cotton seed meal, [...] may report side effects to FDA at 5-354-ISO-6782. What other drugs will affect levothyroxine? Many [...] can affect levothyroxine. This includes prescription and toqh-gjh-ojasxlx medicines, vitamins, and herbal products. Not all [...] to ensure that the information provided by [employer]. ('[employer]') is accurate, up-to-date, and complete, but no guarantee is made to that effect. Drug information contained herein may be time sensitive. Be[employer] information has been compiled for use by healthcare practitioners and consumers in the [place] and therefore [employer] does not warrant that uses outside of the [place] are appropriate, unless specifically indicated otherwise. [employer] drug information does not endorse drugs, diagnose patients or recommend therapy. [employer] drug information is an informational resource designed [...] effective or appropriate for any given patient. [employer] does not assume any responsibility for any aspect of healthcare administered with the aid of information Be[employer] provides. The information contained herein is not intended to cover all possible uses, directions, precautions, warnings, drug interactions, allergic reactions, or adverse effects. If you have questions about the drugs you are taking, check with your doctor, nurse or pharmacist. Copyright 5934-3792 [employer]. Version: 13.04. Revision Date: 05/05/2019. Emergency Awareness [...] Assistance with quitting is available by contacting 7-696-PYLONOW. This is a free resource providing counseling, support, and referral. Or you may contact your personal physician. [employer] Suicide Prevention Lifeline: The National Suicide Prevention [...] range between ( 0.0 and 7.0 ) [place] #: 0.73 K/uL -- Normal range between ( 0.16 and 1.00 ) Eos #: 0.12 x10(3)/uL -- Normal range between ( 0.00 and 0.80 ) [place] %: 8.7 % -- Normal range between [...] was given the opportunity to ask questions. Patient/Textile Slitting Machine Operator Name: Patient/Textile Slitting Machine Operator Signature: Relationship to Patient: Clinician/Hospital Textile Slitting Machine Operator Signature: Date: Electronically signed by Brittany [facility] Conversion Agency Director [employer] at 01/24/2023 10:19 AM CDT documented in this encounter Plan of Treatment Not on file documented as of this encounter Visit Diagnoses Not on filedocumented in this encounter Care Teams Sweatband Decorating Machine Operator Relationship Specialty Start Date End Date Marielos Amaral APRN [address] [address] PCP - General Nurse Practitioner 08/18/23 documented as of this encounter
--- OUTSIDE RECORDS SUMMARY | 2025-05-14 20:35 | XMS_ITS | Encounter Summary ---
Author Organization [employer] ([place], [place], [place], [place]) Address [address] [place] [address] Care Team Providers Care Trimmer Sorter Name Role Phone Marielos Amaral KAYE Primary Care Provider Encounter Details Date Type Department Care Team (Late st Contact Info) Description 02/06/2019 Transcribed Document [facility] [place] [facility] [place] [address] ProviderHaroldo MD [address] [place] [address] Social History Tobacco Use Types Packs/Day Years Used Date Smoking Tobacco: Never Assessed Sex and Gender Information Value Date Recorded Sex Assigned at Not on file Legal Sex Male 3:45 PM CDT Gender Identity Not on file Sexual Orientation Not on file documented as of this encounter Miscellaneous Notes * Cerner Conversion Note - Haroldo ProviderMD - 02/06/2019 5:23 PM CDT Patient: ZACKARY ANTOINE Age: 68 Years Sex: Male : 1950 Chief Complaint pt here c/o right shoulder pain and weakness to right arm and loss of balance media relations intern strength equal bilaterally decreased sensation to right arm and right leg no facial droop or slurred speech equal bilateral lower extremities Reason for Consultation Ischemic stroke History of Present Illness The patient is a 68-year-old male with history of hypertension, CAD, CABG two years ago, tobacco dependence, who presented to the ER yesterday with complaints of waking up with pain in his right shoulder, weakness in his right arm and loss of balance. Patient states that when he woke up this morning he was stiff in his right shoulder and that it continued to bother him throughout the day today. Patient reports that approximately 5:00 PM this evening he lost his balance and was staggering like a drunk man . He denies any specific aggravating or alleviating factors with these symptoms and reports no additional associated symptoms. Patient presented with loss of control of his right side to the ER and he underwent CTA and CT head and CT perfusion of the head and all were negative . Patient was found to be not a candidate for IV t-PA since he woke up with right sided weakness and loss of balance . He denied any chest pain, shortness of breath. He tries tingling or numbness. Denies any headaches. Denies any fever or chills. Vital Signs Vitals Signs (last 24 hrs) Last Charted Minimum Maximum Temp 97.6 (FEBRUARY 06:) 97.6 (FEBRUARY 06:) 98.7 (FEBRUARY 05 18:55) Apical HR 84 (FEBRUARY 06:27) 84 (FEBRUARY 06:27) 84 (FEBRUARY 06:27) Mon HR 89 (FEBRUARY 06:) 66 (FEBRUARY 06 05:30) 89 (FEBRUARY 06:) Periph HR 84 (FEBRUARY 05 18:55) 84 (FEBRUARY 05 18:55) 84 (FEBRUARY 05 18:55) Resp Rate 14 (FEBRUARY 06:) 14 (FEBRUARY 05 20:00) H 24 (FEBRUARY 06:00) SBP H 151 (FEBRUARY 06:) 108 (FEBRUARY 06:) H 176 (FEBRUARY 06:28) DBP 85 (FEBRUARY 06:) L 59 (FEBRUARY 06 04:00) H 99 (FEBRUARY 06:28) MAP 101 (FEBRUARY 06:) 78 (FEBRUARY 06:00) 140 (FEBRUARY 06:) SpO2 97 (FEBRUARY 06:) 94 (FEBRUARY 06 04:00) 99 (FEBRUARY 05 22:00) Oxygen Settings (Last) Oxygen Therapy Mode: Room air (02/06/19 15:11:00 EDT) Physical Exam Patient is alert and is fully oriented . Speech and memory are intact. PERRL, EOM intact, has mild right central facial paresis. Sensory :intact to pin prick bilaterally. Motor: Has a right pronator drift with a power of 5-/5 in right UL and right LL. Dtrs are symmetrical and toes are downgoing. No cerebellar signs. Radiology Results (Last 48 hours) [id number] -- 02/05/2019 23:59 CT Head WO (02/05/2019 [...] approximately 50% stenosis of theproximal basilar artery. environmental monitoring technician show mild stenosis proximally. IMPRESSION: 1. 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 Anterior circulation intact.3. Mild bilateral SKEIN DRIER disease. This study was performed using dose [...] strip.2. No hemorrhage.3. Advanced chronic microvascular changes. 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 main Recommendations: (i) Cardiology input for considering anticoagulation with NOACs ( Eg.Eliquis) (ii)Continue low dose EC aspirin 81 mg po daily. Thank you for referral. Provider Information Primary Care Physician - KATELYN MCKEON (REF) Attending Physician - RODNEY KAUR MD Admitting Physician - RODNEY KAUR MD Consulting Physician - PRIYA JIANG MD-SIN Consulting Physician - MEHRAN STEVEN MD-CAR Referring Physician - JAIR HOOD MD Problem List/Past Medical History Ongoing Angina Coronary [...] stents, hernia repair, left arm surgery, tonsillectomy. Medications Inpatient amiodarone, 200 mg= 1 Tab, Oral, Daily aspirin, 325 mg= 1 Tab, Oral, Daily atorvastatin, 40 mg= 1 Tab, Oral, At Bedtime Colace, 100 mg= 1 Cap, Oral, BID Flomax, 0.4 mg= 1 Cap, Oral, Daily insulin lispro sliding scale, Scale A:, SubCutaneous, AC and at Bedtime lisinopril, 10 mg= 1 Tab, Oral, Daily Lovenox, 40 mg= 0.4 mL, SubCutaneous, Daily MiraLax, 17 Gram= 1 Packet, Oral, Daily, PRN Normal Saline Flush, 10 mL, IV Push, See Comment, PRN Normal Saline Flush, 10 mL, IV Push, Q12H Pepcid, 20 mg= 2 mL, IV Push, BID Sodium Chloride 0.9% intravenous solution 1,000 mL, 1000 mL, IntraVENous Toprol-XL, 25 mg= 1 Tab, Oral, Daily Tylenol, 650 mg= 2 Tab, Oral, Q4H, PRN Zofran, 4 mg= 2 mL, IV Push, Q4H, PRN Home amiodarone 200 mg oral tablet, 200 mg= 1 Tab, Oral, Daily aspirin 81 mg oral delayed release tablet, 81 mg= 1 Tab, Oral, Daily atorvastatin 40 mg oral tablet, 40 mg= 1 Tab, Oral, At Bedtime Flomax 0.4 mg oral capsule, 0.4 mg= 1 Cap, Oral, Daily glimepiride 2 mg oral tablet, 4 mg= 2 Tab, Oral, BID Januvia 100 mg oral tablet, 100 mg, Oral, Daily lisinopril 10 mg oral tablet, 10 mg= 1 Tab, Oral, Daily metFORMIN 1000 mg oral tablet, 1000 mg= 1 Tab, Oral, BID metoprolol succinate 25 mg oral capsule, extended release, 25 mg= 1 Cap, Oral, Daily omeprazole 40 mg oral delayed release capsule, 40 mg= 1 Cap, Oral, Daily Allergies Mucinex amoxicillin Social History [...] EDT ALT 26 Units/Liter 02/05/2019 21:52 EDT Device Comment 1 Protocols Followed 02/06/2019 16:32 EDT Device Comment 1 Protocols Followed 02/06/2019 12:24 EDT Glucose POC2 232 mg/dL (High) 02/06/2019 16:32 EDT Glucose POC2 201 mg/dL (High) 02/06/2019 12:24 EDT Lipase Level 111 Units/Liter 02/05/2019 21:52 [...] Lymph # 2.34 x10(3)/uL 02/05/2019 21:52 EDT [place] % 8.7 % 02/05/2019 21:52 EDT [place] # 0.99 K/uL 02/05/2019 21:52 EDT Eos [...] Appearance CLEAR2 02/05/2019 23:59 EDT Urine Specific [place] 1.016 02/05/2019 23:59 EDT Urine pH Dipstick [...] Urine Blood Dipstick NEGATIVE2 02/05/2019 23:59 EDT TSH 1.960 mcInt Units/mL 02/06/2019 10:47 EDT Alcohol <3 mg/dL 02/05/2019 21:52 EDT %Alcohol <0.00 02/05/2019 21:52 EDT Electronically signed by Brittany [facility] Conversion Cytogenetics Technologist Cerner at 01/24/2023 10:30 AM CDT documented in this encounter Plan of Treatment Not on file documented as of this encounter Visit Diagnoses Not on filedocumented in this encounter Care Teams Trimmer Sorter Relationship Specialty Start Date End Date Amaral Marielos, FUEL DISTRIBUTION SYSTEM OPERATOR [address] [address] PCP - General Nurse Practitioner 08/18/23 documented as of this encounter
--- OUTSIDE RECORDS SUMMARY | 2025-05-14 20:35 | XMS_ITS | Encounter Summary ---
Author Organization [email or web address] ([place], [place], [place], [place]) Address [address] [place] [address] Care Team Providers Care Field Support Rep Name Role Phone Marielos Amaral APRN Primary Care Provider Encounter Details Date Type Department Care Team (Late st Contact Info) Description 02/06/2019 Transcribed Document [facility] [place] [address] [place] [address] ProviderHaroldo MD [address] [place] [address] Social History Tobacco Use Types Packs/Day Years Used Date Smoking Tobacco: Never Assessed Sex and Gender Information Value Date Recorded Sex Assigned at Not on file Legal Sex Male 3:45 PM CDT Gender Identity Not on file Sexual Orientation Not on file documented as of this encounter Miscellaneous Notes * Cerner Conversion Note - Haroldo ProviderMD - 02/06/2019 8:52 AM CDT UM Authorization Entered On: 02/06/2019 8:53 EDT Performed On: 02/06/2019 8:52 EDT by GEGE JUÁREZ RN Primary Insurance Authorization Authorization and Policy Numbers : Insurance 1 Health Plan: [employer] H[employer] Policy Number: [id number] Authorization Number: Insurance Primary Name : [employer] Choice Authorization Status-Primary : Opo status approv Authorized Service Begin Date-Primary : 02/05/2019 EDT Authorization Comments-Primary : setup on availity obs approved. Historical Authorization Comments-Primary : No Authorization Comments Found GEGE JUÁREZ RN - 02/06/2019 8:52 EDT documented in this encounter Plan of Treatment Not on file documented as of this encounter Visit Diagnoses Not on filedocumented in this encounter Care Teams Field Support Rep Relationship Specialty Start Date End Date Marielos Amaral, CRANBERRY SORTER [address] [place] [address] PCP - General Nurse Practitioner 08/18/23 documented as of this encounter
--- OUTSIDE RECORDS SUMMARY | 2025-05-14 20:35 | XMS_ITS | Encounter Summary ---
Author Organization [employer] ([place], [place], [place], [place]) Address [address] [place] [address] Care Team Providers Care Bread Supervisor Name Role Phone Marielos Amaral KAYE Primary Care Provider Encounter Details Date Type Department Care Team (Late st Contact Info) Description 01/20/2019 Transcribed Document [facility] [place] Family Medicine [address] [place] [id number] ProviderHaroldo MD [address] [place] [id number] Social History Tobacco Use Types Packs/Day Years Used Date Smoking Tobacco: Never Assessed Sex and Gender Information Value Date Recorded Sex Assigned at Not on file Legal Sex Male 3:45 PM CDT Gender Identity Not on file Sexual Orientation Not on file documented as of this encounter Miscellaneous Notes * Cerner Conversion Note - Haroldo ProviderMD - 01/20/2019 2:27 PM CDT DATE OF PROCEDURE: 01/20/2019 PROCEDURE: Esophagogastroduodenoscopy with radiofrequency ablation. SURGEON: Endoscopist, Neto Lopez MD REFERRING PHYSICIAN: Axel Hamlin EQUIPMENT: Olympus GIF-190 gastroscope. PREOPERATIVE DIAGNOSIS(ES): POSTOPERATIVE DIAGNOSIS(ES): MEDICATION: MAC sedation. INDICATION: Mr. Carrasco is a 68-year-old gentleman, who underwent diagnostic endoscopy on December 04, 2018 for chronic GERD. 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 Biopsies at that time did show a focal low-grade mucosal dysplasia and Valenzuela's esophagus. He returns today for radiofrequency ablation of the low-grade Valenzuela's esophagus. He has no dysphagia or change in symptoms. Cardiac and lung assessment prior to the examination was stable. FINDINGS: The scope was passed directly into the upper esophagus and advanced to the third portion of the duodenum. The duodenum and gastric mucosa were unchanged. There was mild chronic gastritis. There was a small recurrent hiatal hernia with mostly intact fundoplication. Narrow band imaging was utilized and there were no obvious areas of dysplasia. The 40 mm ablation 90 degree catheter was utilized and the ablation was performed on each segment of Valenzuela's twice and then the coagulative debris was removed. The areas again reablated twice and after the fourth ablation to each site, the procedure was ended. All of the seen Valenzuela's was ablated. There was no evidence of reflux esophagitis. 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 PLAN: We will have the patient return in three months with repeat endoscopy with possible further ablation of any remaining Valenzuela's esophagus. Neto Lopez M.D. Dict: 01/20/2019 14:27:40 Trans: 01/20/2019 16:21:18 CC1: Neto Lopez M.D. CC2: Dr. Axel Hamlin Electronically signed by Brittany [facility] Conversion Mail Teller Cerner at 01/24/2023 10:38 AM CDT documented in this encounter Plan of Treatment Not on file documented as of this encounter Visit Diagnoses Not on filedocumented in this encounter Care Teams Bread Supervisor Relationship Specialty Start Date End Date Marielos Amaral APRN [address] [address] PCP - General Nurse Practitioner 08/18/23 documented as of this encounter
--- OUTSIDE RECORDS SUMMARY | 2025-05-14 20:35 | XMS_ITS | Encounter Summary ---
Author Organization [employer] ([place], [place], [place], [place]) Address [address] [place] [address] Care Team Providers Care Development Disability Specialist Name Role Phone Marielos Amaral APRN Primary Care Provider Encounter Details Date Type Department Care Team (Late st Contact Info) Description 10/17/[address] [facility] Radiology [address] [place] [id number] Camilo Steven MD [address] [place] [address] Social History Tobacco Use Types Packs/Day Years Used Date Smoking Tobacco: Never Assessed Sex and Gender Information Value Date Recorded Sex Assigned at Not on file Legal Sex Male 3:45 PM CDT Gender Identity Not on file Sexual Orientation Not on file documented as of this encounter Miscellaneous Notes * Cerner Conversion Note - Camilo Steven MD - 10/17/2019 9:19 AM EST Patient: ZACKARY ANTOINE Age: 68 years Sex: Male : 1950 Associated Diagnoses: None Author: CAMILO STEVEN MD-CAR Subjective NAD Patient seen and examined at the bedside. Awake alert oriented ??3 not visible to pain. No events overnight. Patient in sinus rhythm. On amiodarone and anticoagulated. Health Status Allergies: Allergic Reactions (Selected) Severity Not Documented Amoxicillin- No reactions were documented. Mucinex- No reactions were documented., Allergies (2) Active Reaction amoxicillin None Documented Mucinex None Documented Current medications: (Selected) Inpatient Medications Ordered Colace: 100 mg, Oral, BID DuoNeb 0.5 mg-2.5 mg/3 mL inhalation solution: 3 mL, Nebulized Inhalation, RT_Q6H, PRN: Shortness of Breath Eliquis: 5 mg, Oral, [id number] Flomax: 0.4 mg, Oral, Daily Metoprolol Succinate ER: 50 mg, Oral, Daily MiraLax: 17 Gram, Oral, Daily, PRN: Constipation Protonix: 40 mg, Oral, Daily Synthroid: 100 mcg, Oral, Daily Tylenol: 650 mg, Oral, Q4H, PRN: Pain (Mild 1-3) Zofran: 4 mg, IV Push, Q4H, PRN: Nausea amiodarone: 200 mg, Oral, Daily atorvastatin: 40 mg, Oral, At Bedtime hydrALAZINE: 10 mg, IV Push, Q6H, PRN: Other (See Comment) insulin lispro sliding scale: Scale A:, SubCutaneous, AC and at Bedtime lisinopril: 20 mg, Oral, Daily niCARdipine injection 25 mg + NaCl 0.9% for drip 250 mL: TITRATE, IntraVENous nitroglycerin: 0.4 mg, SubLINgual, 1-Time, PRN: Chest Pain Prescriptions Prescribed Eliquis 5 mg oral tablet: 1 Tab, Oral, [id number], 60 Tab, 0 Refill(s) Toprol-XL 25 mg [...] tablet 5 mg = 1 Tab, Oral, [id number] Eliquis 5 mg oral tablet 5 mg [...] = 1 Tab, Oral, Daily , Medications (17) Active Scheduled: (10) amiodarone 200 mg tab 200 mg 1 Tab, Oral, Daily apixaban 5 mg tab 5 mg 1 Tab, Oral, [id number] atorvastatin 40 mg tab 40 mg 1 Tab, Oral, At Bedtime docusate sodium 100 mg cap 100 mg 1 Cap, Oral, BID insulin lispro 1 unit/0.01 mL inj Scale A:, SubCutaneous, AC and at Bedtime levothyroxine 100 mcg tab 100 mcg 1 Tab, Oral, Daily lisinopril 20 mg tab 20 mg 1 Tab, Oral, Daily metoprolol succinate XL 50 mg tab 50 mg 1 Tab, Oral, Daily pantoprazole EC 40 mg tab 40 mg 1 Tab, Oral, Daily tamsulosin CR 0.4 mg cap 0.4 mg 1 Cap, Oral, Daily Continuous: (1) niCARdipine 25 mg + NaCl 0.9% T [...] Gram 1 Packet, Oral, Daily Problem list: All Problems Angina / SNOMED CT 850802110 / Confirmed Coronary artery disease / SNOMED CT 9350006851 / Confirmed Diabetes mellitus type II / SNOMED CT 50858274 / Confirmed GERD - Gastro-esophageal reflux disease / SNOMED CT 2249482149 / Confirmed Heart failure / SNOMED CT 552872515 / Confirmed Heart murmur / SNOMED CT 505261564 / Confirmed History of obstructive sleep apnea / IMO 35145060 / Confirmed Hyperlipidemia / SNOMED CT 24042088 / Confirmed Hypertension / SNOMED CT 83220209 / Confirmed Impaired vision / SNOMED CT 84736375 / Confirmed Enlarged prostate / SNOMED CT 525972209 / Confirmed Migraine / SNOMED CT 83698666 / Confirmed Stented coronary artery / SNOMED CT 7357987688 / Confirmed, Active Problems (13) Angina Coronary artery disease Diabetes mellitus type II Enlarged prostate GERD - Gastro-esophageal reflux disease Heart failure Heart murmur History of obstructive sleep apnea Hyperlipidemia Hypertension Impaired vision Migraine Stented coronary artery Objective VS/Measurements Vitals Signs (last 24 hrs) Last Charted Minimum Maximum Temp 97.7 (OCT 16 20:00) 97.7 (OCT 16 20:00) 97.7 (OCT 16:00) Apical HR 65 (OCT 17 08:09) 65 (OCT 17 08:09) 74 (OCT 16 09:05) Mon HR 65 (OCT 17 06:00) 56 (OCT 17 04:00) 78 (OCT 16:00) Resp Rate 19 (OCT 17:00) 17 (OCT 17 05:00) H 47 (OCT 16:) SBP H 160 (OCT 17 06:00) 103 (OCT 16 21:00) H 177 (OCT 16 19:30) DBP 72 (OCT 17:00) L 58 (OCT 16:00) 86 (OCT 16:) MAP 104 (OCT 17:00) 75 (OCT 16:00) 123 (OCT 16:00) SpO2 96 (OCT 17:00) L 93 (OCT 17 05:00) 98 (OCT 16 09:00) General: Alert and oriented, No acute distress. Eye: Pupils are equal, round and reactive to light, Extraocular movements are intact, Vision unchanged. HENT: Normocephalic, Oral mucosa is moist. Neck: Supple, Non-tender, No carotid bruit, No jugular venous distention. Respiratory: Lungs are clear to auscultation, Respirations are non-labored, Breath sounds are equal, Symmetrical chest wall expansion. Cardiovascular: Normal rate, Regular rhythm, No murmur, No gallop, Good pulses equal in all extremities, Normal peripheral perfusion, No edema. Gastrointestinal: Soft, Non-tender, Non-distended, Normal bowel sounds. Genitourinary: Exam deferred. Musculoskeletal: Normal range of motion, Normal strength, No deformity. Integumentary: Warm, Dry, Barnard, No rash. Neurologic: Alert, Oriented, No focal deficits. Psychiatric: Cooperative, Appropriate mood & affect. Results Review No qualifying data available Cardiac Markers (Current Encounter/Past 24 Hours) No Cardiac Marker Results Found (Past 24 Hours) Radiology Results (Last 48 hours) [id number] -- 10/14/2019 17:19 MRI Brain WO (10/15/2019 09:30) Result: MRI OF THE BRAIN HISTORY: Acute CVA, recent TPA.COMPARISON: February 2019.PROCEDURE: Multiplanar MR imaging of the brain was performed in multipleMR sequences.FINDINGS: Limited images the proximal cord are unremarkable. Theventricles are enlarged. There is diffuse atrophy. There is severeperiventricular and deep white matter change likely related to smallvessel disease. There is no extra-axial fluid or midline shift. There isno evidence of acute hemorrhage. Flow-voids are appropriate.Diffusion-weighted images demonstrate no evidence of acute CVA. Limitedimages of the paranasal sinuses are unremarkable. There is minimalfluid in the left mastoids.IMPRESSION: Atrophy and white matter change without acute process. CT Head WO (10/15/2019 17:24) Result: HEAD CTHISTORY: 24 hours post TPA.TECHNIQUE: Multiple axial CT images were performed from [...] shift midline structures. There is no intracranial hemorrhage.No significant sinus or osseous abnormality seen.IMPRESSION: No change and no acute intracranial abnormality. CR Chest 1 Vw Portable (10/16/2019 07:18) Result: PORTABLE CHEST 10/16/2019 5:00 AM HISTORY: Precordial chest pain .COMPARISON: October 14, 2019.FINDINGS: The heart is enlarged. The patient is status post mediansternotomy. The lungs are clear . There is no pneumothorax . Theosseous structures demonstrate no acute abnormality.IMPRESSION: No acute cardiopulmonary process .Images reviewed, interpreted, and dictated by Dr. Brenton Barahona.Transcribed by Johana Coker PA-C.I have personally viewed, interpreted and dictated the examination. Ihave read and agree with the above final transcribed report. ECHO with Bubble Study 10/15/2019: Impression: Negative bubble study. Normal sized left ventricle. Mild left ventricular hypertrophy. Visually estimated ejection fraction 60- 65%. Normal left ventricular systolic function. No hemodynamically significant valvular dysfunction. No masses or thrombi are seen. Impression and Plan IMPRESSION: Acute CVA s/p TPA (10-14-2019) in setting of atypical chest pain, NSR. Resolved R LE motor deficit, residual R LE paresthesia. Left Chest Wall Pain that has been ongoing for 4+ Weeks / Worse with deep breathing and lying on his left side Troponin Level Negative X3 Hx of PCI / POBA / Stents. Hx of Off Pump CABG X4 (BLOOD to LAD, SVG to D1, SVG to LCX Marginal, and SVG to PDA) 02/10/[address] King LVEF-40% with moderate LV systolic dysfunction / diastolic dysfunction and LVH per ECHO 02/10/2019 Hx Paroxsymal AFIB. On OAC with Eliquis 5mg BID (had ran out 5 days prior to this admission) Hx of CVA April 2019 (no significant residual) On Amiodarone 200mg Daily and Toprol XL 50mg Daily at home HTN Not well controlled on admission / SBP remains 130's-150's On Toprol XL 50mg Daily at home HLD On Atorvastatin 40mg QHS at home DM-II GERD with Valenzuela's Esophagus On PPI Renal Insufficiency SCr 1.30 on admission PLAN: 10/17/2019 for Lexiscan nuclear stress test as outpatient. Follow-up with Dr. Steven as outpatient in one week. 10/16/2019 status post chest pain. Cardiac enzymes are negative multiple sets. 2-D echo normal systolic function. Sinus rhythm on the telemetry no EKG changes suggestive ischemia. Recommend stress test as outpatient. Continue beta cholo DEVI inhibitor statin .History of paroxysmal atrial fibrillation. Currently in sinus rhythm. On amiodarone and Eliquis front coagulation. Continue Eliquis if cleared by neurology. 10/15/2019 Resume Lisinopril at lower dose (20 mg) in AM. Continue other current CV meds. ECHO. Eventual Lexiscan myoview next week/outpt. OK to telemetry from cardiac standpoint. documented in this encounter Plan of Treatment Not on file documented as of this encounter Visit Diagnoses Not on filedocumented in this encounter Care Teams Development Disability Specialist Relationship Specialty Start Date End Date Marielos Amaral, CONCRETE GUN OPERATOR [address] [place] [address] PCP - General Nurse Practitioner 08/18/23 documented as of this encounter
--- OUTSIDE RECORDS SUMMARY | 2025-05-14 20:35 | XMS_ITS | Encounter Summary ---
Author Organization [employer] ([place], [place], [place], [place]) Address [address] [place] [address] Care Team Providers Care Biomechanical Engineer Name Role Phone Marielos Amaral APRN Primary Care Provider [phone] Encounter Details Date Type Department Care Team (Late st Contact Info) Description 02/05/2019 Transcribed Document [facility] [place] [facility] [place] [address] ProviderHaroldo MD [address] [place] [address] Social History Tobacco Use Types Packs/Day Years Used Date Smoking Tobacco: Never Assessed Sex and Gender Information Value Date Recorded Sex Assigned at Not on file Legal Sex Male 3:45 PM CDT Gender Identity Not on file Sexual Orientation Not on file documented as of this encounter Miscellaneous Notes * Cerner Conversion Note - Haroldo ProviderMD - 02/05/2019 10:30 PM CDT Patient: ZACKARY ANTOINE Age: 68 years Sex: Male : 1950 Associated Diagnoses: Ataxia; Weakness Author: JOE MCWILLIAMS PA Basic Information Additional information: Patient's physician(s): KATELYN MCKEON (REF), Chief Complaint from Nursing Triage Note : Chief Complaint 02/05/2019 18:55 EDT Chief Complaint pt here c/o right shoulder pain and weakness to right arm and loss of balance manufacturer representative strength equal bilaterally decreased sensation to right arm and right leg no facial droop or slurred speech equal bilateral lower extremities . History of Present Illness Patient is a 68-year-old male who presents emergency room today with complaints of waking up with pain in his right shoulder, weakness in his right arm and loss of balance. Patient states that when he woke up this morning he was stiff in his right shoulder and that it continued to bother him throughout the day today. Patient reports that approximately 5:00 PM this evening he lost his balance and is staggering like a drunk man . He denies any specific aggravating or alleviating factors with these symptoms and reports no additional associated symptoms. Review of Systems Constitutional symptoms: No fever, no chills. Eye symptoms: Vision unchanged. Respiratory symptoms: No shortness of breath, Cardiovascular symptoms: No chest pain, Gastrointestinal symptoms: No abdominal pain, no nausea, no vomiting. Musculoskeletal symptoms: Reports: Right, shoulder, stiffness. Neurologic symptoms: Weakness, altered coordination. Additional review of systems information: All other systems reviewed and otherwise negative. Health Status Allergies: Allergic Reactions (Selected) Severity Not Documented Amoxicillin- No reactions were documented. Mucinex- No reactions were documented.. Past Medical/ Family/ Social History Surgical history: cardiac catheterization. hernia repair. tonsillectomy. Cholecystectomy; (81088). appendectomy. left arm surgery. coronary stents.. Family history: No family history items have been selected or recorded.. Social history: Social & Psychosocial Habits Alcohol 01/20/2019 Alcohol Use History, Social Habits No Alcohol Use in Last Twelve Months No Nutrition/Health 01/20/2019 Type of diet: Diabetic, Regular Wants to lose weight: No Sleeping concerns: No Feels highly stressed: No Substance Abuse 01/20/2019 Recreational Drug Use History [...] Days Yes Smokeless Tobacco Use History None . Problem list: Active Problems (13) Angina Coronary artery disease Diabetes mellitus type II Enlarged prostate GERD - Gastro-esophageal reflux disease Heart failure Heart murmur History of obstructive sleep apnea Hyperlipidemia Hypertension Impaired vision Migraine Stented coronary artery . Physical Examination Vital Signs Vital Signs/Vital Measures 02/05/2019 18:55 EDT Temperature Source Oral Temperature Mode Fahrenheit Temperature, Fahrenheit 98.7 Deg F Clinical Temperature, C 37.1 Deg C Peripheral Pulse Rate 84 bpm Respiratory Rate 16 Breaths/Min Systolic Blood Pressure 168 mmHg HI Diastolic Blood Pressure 92 mmHg HI Oxygen Saturation 98 % Oxygen Therapy Mode Room air . Measurements 02/05/2019 18:55 EDT Height Source Stated Height Entry Format [place] Height/Length, YI (ft) 5 ft Height/Length YI 9 Inch CLINICALHEIGHT 175.26 cm [place] Body Weight 69.73 kg Weight Source, ED Critical estimated dosing weight Weight Entry Format [place] Weight Faroese lb 175 lb CLINICALWEIGHT 79.55 kg Body Surface Area (BSA) 1.95 m2 Body Mass Index 25.9 kg/m2 HI . Oxygen Saturation 02/05/2019 18:55 EDT Oxygen Saturation 98 % . General: Alert, no acute distress. Skin: Warm, dry. Head: Normocephalic, atraumatic. Neck: Supple. Eye: Extraocular movements are intact, normal conjunctiva. Ears, nose, mouth and throat: Oral mucosa moist. Cardiovascular: Regular rate and rhythm. Respiratory: Lungs are clear to auscultation, respirations are non-labored. Gastrointestinal: Non distended. Musculoskeletal: Normal ROM, normal strength, no tenderness, no swelling, no deformity. Neurological: Alert and oriented to person, place, time, and situation, normal sensory observed, normal speech observed, Motor strength: Equal bilaterally, Gait: Off-balance, Ataxic. Psychiatric: Cooperative. Medical Decision Making Differential Diagnosis: Weakness, dizziness, cerebral vascular accident, transient ischemic attack. Rationale: Patient presents to the emergency room with complaints of ataxic gait that started approximately 5 PM today. At the time of my interview and exam patient was outside of the window of tPA. No acute findings on labs or initial CT of the head ordered at the time of triage. Post interview and exam patient discussed with Dr. Kaur who recommended CTA of head and neck, contact neurology and have the patient admitted to hospitalist. Neurology patient transportation driver was contacted who recommended CTA brain perfusion in addition to ordered studies and was agreeable to consult patient on admission. CT of head and neck and brain perfusion scan were negative. Hospitalist was consulted for admission and was agreeable to except patient to his service for observation and additional neurologic workup.. Documents reviewed: Emergency department nurses' notes, emergency department records, prior records. Orders Include Previous Orders (Selected) Inpatient Orders Ordered ED Isolation Documented: EKG: Ordered (Dispatched) Drug Screen Urine 2: Urinalysis w Microscopic if Indicated: Ordered (Exam Completed) CT Brain Perfusion: CTA Head: CTA Neck: Completed .Automated Differential: Alcohol Level: CBC w/ Auto Diff: CMP Comprehensive Metabolic Panel: CT Head WO: ED Adult Fall Risk Assessment: ED Adult Triage: ED Clinical Reconciliation: ED locomotive electrician: Lipase Level: Peripheral IV Insertion: Troponin I Ultra: . Electrocardiogram: Time 02/05/2019 21:53:00, rate 79, normal sinus rhythm, No ST changes, no ectopy, normal MI & QRS intervals, EP Interp, Normal sinus rhythm without acute ST elevations reviewed by Dr. Kaur. Results review: Lab results : Lab Results 02/05/2019 21:52 EDT Sodium Level 137 mmol/L Potassium Level 4.6 mmol/L Chloride Level 105 mmol/L Carbon Dioxide Level 23 mmol/L Anion Gap 14 Glucose Level 97 mg/dL Blood Urea Nitrogen 16 mg/dL CREATININE 0.90 mg/dL eGFR >60 mL/min/1.73m2 eGFR NonAfrican >60 mL/min/1.73m2 Bun/Creatinine 17.8 Calcium Level 9.4 mg/dL Protein Total 7.5 Gram/dL Albumin Level 3.8 Gram/dL Globulin 3.7 Gram/dL A/G Ratio 1.0 LOW Bilirubin Total 0.6 mg/dL Alk Phos 71 Units/Liter AST 15 Units/Liter ALT 26 Units/Liter Lipase Level 111 Units/Liter Troponin I Ultra <0.015 ng/mL WBC 11.4 K/uL HI RBC 4.87 Million/uL Hgb 14.7 g/dL Hct 42.8 % MCV 87.9 fL MCH 30.2 pg MCHC 34.3 Gram/dL Platelet Count 325 K/uL MPV 9.8 fL RDW 12.7 % Neut % 68.6 % Neut # 7.85 K/uL HI Lymph % 20.5 % Lymph # 2.34 x10(3)/uL [place] % 8.7 % [place] # 0.99 K/uL Eos % 1.0 % Eos # 0.12 x10(3)/uL Baso % 0.4 % Baso # 0.05 x10(3)/uL Slide Review No IG# 0.09 x10(3)/uL HI IG% 0.80 % HI Alcohol <3 mg/dL NA %Alcohol <.00 NA . Radiology results: Radiology Results (Last 48 hours) [id number] -- 02/05/2019 23:59 CT Head WO (02/05/2019 [...] recommendMRI.2. Atrophy with chronic microvascular ischemia3. Sinusitis . Impression and Plan Diagnosis Ataxia - Discharge, Medical Weakness - Discharge, Medical Calls-Consults - 02/05/2019 22:45:00 , PRIYA JIANG MD-SIN, Neurology, phone call, recommends CTA Head and Neck and CT brain perfusion; will see and evaluate patient on consult. - 02/06/2019 00:00:00 , FIORELLA OWENS MD-INT, Hospital Medicine, phone call, recommends Will see and admit patient to telemetry for observation. Plan Condition: Stable. Disposition: Admit Admit/Transfer/Discharge: Place in Observation (Order): Start: 02/05/2019 23:59 EDT, Observation Reason: Ataxia, Unit type: Telemetry unit, Location preference: Neuro Tele, Admitting: FIORELLA OWENS MD-INT, Attending: RODNEY KAUR MD. Counseled: Patient, Family, Regarding diagnosis, Regarding diagnostic results, Regarding treatment plan, Patient indicated understanding of instructions. Notes: I certify that the Physician Right Of Way Man performed the services as delegated. I agree with the assessment, treatment plan and disposition of the patient as recorded by the Physician Right Of Way Man, Dr. Kaur. documented in this encounter Plan of Treatment Not on file documented as of this encounter Visit Diagnoses Not on filedocumented in this encounter Care Teams Biomechanical Engineer Relationship Specialty Start Date End Date Marielos Amaral, ASSOCIATE FIELD SERVICE ENGINEER [address] [place] [address] PCP - General Nurse Practitioner 08/18/23 documented as of this encounter
--- OUTSIDE RECORDS SUMMARY | 2025-05-14 20:35 | XMS_ITS | Encounter Summary ---
Author Organization [employer] ([place], [place], [place], [place]) Address [address] [place] [address] Care Team Providers Care Administrative Manager Name Role Phone Marielos Amaral KAYE Primary Care Provider Encounter Details Date Type Department Care Team (Late st Contact Info) Description 02/06/2019 Transcribed Document [facility] [place] Family Medicine [address] [place] [address] ProviderHaroldo MD [address] [place] [address] Social History Tobacco Use Types Packs/Day Years Used Date Smoking Tobacco: Never Assessed Sex and Gender Information Value Date Recorded Sex Assigned at Not on file Legal Sex Male 3:45 PM CDT Gender Identity Not on file Sexual Orientation Not on file documented as of this encounter Miscellaneous Notes * Cerner Conversion Note - Haroldo Warren MD - 02/06/2019 12:17 AM CDT Language/Communication/Cognition Eval Entered On: 02/07/2019 11:55 EDT Performed On: 02/07/2019 11:51 EDT by JEANNETTE BROWER, RAMONA General Information Visit Type, ROPE SILICA MACHINE OPERATOR : Initial evaluation Patient Orders : Speech Language Pathology Evaluation and Treatment -111 Start: 02/06/19 0:17:00 EDT, Routine, For Speech Language Cognitive Eval and Treat - FIORELLA OWENS MD-INT Admission Date : Admission Date/Time: 02/05/19 23:59:00 Medical Chart Reviewed, ROPE SILICA MACHINE OPERATOR : Yes Personal Devices : Personal Devices No Devices Recorded Assistive Devices : Assistive Devices No Devices Recorded Active Diagnoses : 02/05/2019 00:00 Ataxia, unspecified 02/05/2019 00:00 Weakness Therapy Diagnosis, ROPE SILICA MACHINE OPERATOR : Cognition WNL Previous Speech/Language Evaluations : N/A Previous Swallow Precautions : Bedside this admit, recs for reg/thin Previous Cognitive Evaluations : N/A Diet/Intake Prior to Current Admission : Regular/thin Diet/Intake During Current Admission : Regular/thin Intubation Comment, ROPE SILICA MACHINE OPERATOR : No intubation on this admit Vital [...] kg 175 lb Respiratory Assessment Comment : pt seen on room air JEANNETTE BROWER SLP - 02/07/2019 11:51 EDT General Status Patient Received Status, ROPE SILICA MACHINE OPERATOR : Long sitting in bed Patient Left Status, ROPE SILICA MACHINE OPERATOR : Long sitting in bed JEANNETTE BROWER SLP - 02/07/2019 11:51 EDT Pain Assessment Pain Scaled Used : 0-10 Pain scale Pain Score Pre-Intervention : 0 JEANNETTE BROWER SLP - 02/07/2019 11:51 EDT Image 1 - Images currently included in the form version of this document have not been included in the text rendition version of the form. Oral Mechanism Dysarthria : No Resonance Types : Appropriate Oral Mechanism for Daily Living : Intact (Comment: See bedside for full oral mech [JEANNETTE BROWER SLP - 02/07/2019 11:51 EDT] ) JEANNETTE BROWER SLP - 02/07/2019 11:51 EDT Motor Speech Intelligible Speech for Daily Living, Motor Sp : Intact JEANNETTE BROWER SLP - 02/07/2019 11:51 EDT Auditory Comprehension Auditory Comp for Daily Living : JEANNETTE Nathan SLP - 02/07/2019 11:51 EDT Verbal Expression Verbal Expression for Daily Living : JEANNETTE Nathan SLP - 02/07/2019 11:51 EDT Attention Attention for Daily Living : JEANNETTE Nathan SLP - 02/07/2019 11:51 EDT Memory Memory for Daily Living : JEANNETTE Nathan SLP - 02/07/2019 11:51 EDT Problem Solving Problem Solving for Daily Living : JEANNETTE Nathan SLP - 02/07/2019 11:51 EDT Evaluation Methods Types of Evaluation, ROPE SILICA MACHINE OPERATOR : Informal JEANNETTE BROWER SLP - 02/07/2019 11:51 EDT [facility] Impressions Impressions, Speech/Lang/Cog : No evidence of speech/language or cognitive impairment present [facility] Overall Impressions : 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 Informal cognitive linguistic evaluation completed this date. The pt presents with no overt deficits and reports no concerns at this time. No further f/u indicated. JEANNETTE BROWER SLP - 02/07/2019 11:51 EDT Therapy Indication Assessment ROPE SILICA MACHINE OPERATOR Indicated : No ROPE SILICA MACHINE OPERATOR Not Indicated : At prior level of function, No skilled services indicated ROPE SILICA MACHINE OPERATOR Interdisciplinary Consultation Needs : No JEANNETTE BROWER SLP - 02/07/2019 11:51 EDT Education Barriers To Learning : None evident Individuals Taught : Patient Readiness to Learn : Cooperative Learning Style Preferences Patient : None JEANNETTE BROWER SLP - 02/07/2019 11:51 EDT ROPE SILICA MACHINE OPERATOR Education Assessment Grid 2 Review Results of Evaluations : Verbalizes understanding JEANNETTE BROWER SLP - 02/07/2019 11:[address] [facility] [place] ROPE SILICA MACHINE OPERATOR Charges Evaluation of Speech Production & Language : 1 JEANNETTE BROWER SLP - 02/07/2019 11:51 EDT documented in this encounter Plan of Treatment Not on file documented as of this encounter Visit Diagnoses Not on filedocumented in this encounter Care Teams Administrative Manager Relationship Specialty Start Date End Date Marielos Amaral, AUTHORIZATION MANAGER [address] [place] [address] PCP - General Nurse Practitioner 08/18/23 documented as of this encounter
--- OUTSIDE RECORDS SUMMARY | 2025-05-14 20:35 | XMS_ITS | Encounter Summary ---
Author Organization [employer] ([place], [place], [place], [place]) Address [address] [place] [address] Care Team Providers Care Hospital Insurance Clerk Name Role Phone Marielos Amaral APRN Primary Care Provider Encounter Details Date Type Department Care Team (Late st Contact Info) Description 01/20/2019 Transcribed Document [facility] [place] Family Medicine [address] [place] [address] ProviderHaroldo MD [address] [place] [address] Social History Tobacco Use Types Packs/Day Years Used Date Smoking Tobacco: Never Assessed Sex and Gender Information Value Date Recorded Sex Assigned at Not on file Legal Sex Male 3:45 PM CDT Gender Identity Not on file Sexual Orientation Not on file documented as of this encounter Miscellaneous Notes * Cerner Conversion Note - Haroldo ProviderMD - 01/20/2019 2:12 PM CDT [facility] PACU Summary Primary Physician: PRINCESS DOCKERY MD-GAE Finalized Date/Time: 01/20/19 15:04:39 Pt. Name: ELINA DEION JOYCE /Sex: 1950 Male Med Rec #: [id number] Physician: PRINCESS DOCKERY MD-GAE Financial #: [id number] Pt. Type: O Room/Bed: N/18 Admit/Disch: 01/20/19 12:15:00 - Institution: [facility] PACU Case Times Entry 1 In PACU I 01/20/19 14:28:00 Ready for PACU 01/20/19 15:04:00 Discharge Discharge from PACU 01/20/19 15:04:00 I [facility] PACU Case Times Audit 01/20/19 15:04:37 Manager Room: KELVIN Modifier: KELVIN <+> 1 Ready for PACU Discharge <+> 1 Discharge from PACU I Finalized By: EZEKIEL CARMICHAEL, RN Document Signatures Signed By: EZEKIEL CARMICHAEL, RN 01/20/19 15:04 Electronically signed by Brittany [facility] Conversion Slitter Service And Setter Cerner at 01/24/2023 10:31 AM CDT documented in this encounter Plan of Treatment Not on file documented as of this encounter Visit Diagnoses Not on filedocumented in this encounter Care Teams Hospital Insurance Clerk Relationship Specialty Start Date End Date Marielos Amaral, CONTRACTING EXECUTIVE [address] [phone] PCP - General Nurse Practitioner 08/18/23 documented as of this encounter
--- OUTSIDE RECORDS SUMMARY | 2025-05-14 20:35 | XMS_ITS | Encounter Summary ---
Author Organization [employer] ([place], [place], [place], [place]) Address [address] [place] [address] Care Team Providers Care Medical Recruiter Name Role Phone Marielos Amaral MARKETING REGIONAL CONSULTANT Primary Care Provider Encounter Details Date Type Department Care Team (Late st Contact Info) Description 01/20/2019 Transcribed Document [facility] [place] [address] [place] [address] ProviderHaroldo MD [address] [place] [address] Social History Tobacco Use Types Packs/Day Years Used Date Smoking Tobacco: Never Assessed Sex and Gender Information Value Date Recorded Sex Assigned at Not on file Legal Sex Male 3:45 PM CDT Gender Identity Not on file Sexual Orientation Not on file documented as of this encounter Miscellaneous Notes * Cerner Conversion Note - Haroldo ProviderMD - 01/20/2019 2:38 PM CDT [address] [address] ELINA ZACKARY COOK :1950 Visit [...] to call with appoint/instructionsFollow up with Dr Lpoez as needed Where: [address] [place] [address]- Medications What How Much When Instructions Next [...] Document Reviewed: 12/01/2012 ExitCare?? Patient Information ??2015 [employer]. This information is not intended to replace [...] including vitamins, herbs, eye drops, creams, and qbce-xoi-[id number] medicines. ???Previous problems you or members of [...] Document Reviewed: 08/25/2013 ExitCare?? Patient Information ??2015 [employer]. This information is not intended to replace [...] including vitamins, herbs, eye drops, creams, and zzcb-aas-apcpnwm medicines. ??? Previous problems you or members [...] 07/13/2014 Document Revised: 10/13/2015 Document Reviewed: 07/13/2014 [employer] Interactive Patient Education ?? 2017 [employer]. Emergency Awareness and Preventative Care STROKE is [...] Assistance with quitting is available by contacting 0-836-LDBI-NOW. This is a free resource providing counseling, [...] computer, smartphone, or tablet. Just go to [employer] to get started. Questions? Call . Test Results Laboratory or Other Results This Visit (last charted value for your 01/20/2019 visit) General Chemistry 01/20/19 12:42:00 Glucose POC2: 182 mg/dL -- Normal range between ( 70 and 110 ) Patient Name:ZACKARY ANTOINE I have received this information and was given the opportunity to ask questions. Patient/Calender Roll Press Operator Name: Patient/Calender Roll Press Operator Signature: Relationship to Patient: Clinician/Hospital Calender Roll Press Operator Signature: Date: documented in this encounter Plan of Treatment Not on file documented as of this encounter Visit Diagnoses Not on filedocumented in this encounter Care Teams Medical Recruiter Relationship Specialty Start Date End Date Marielos Amaral, MARKETING REGIONAL CONSULTANT [address] [phone] PCP - General Nurse Practitioner 08/18/23 documented as of this encounter
--- OUTSIDE RECORDS SUMMARY | 2025-05-14 20:35 | XMS_ITS | Encounter Summary ---
Author Organization [employer] ([place], [place], [place], [place]) Address [address] [place] [address] Care Team Providers Care Process Control Specialist Name Role Phone Marielos Amaral KAYE Primary Care Provider Encounter Details Date Type Department Care Team (Late st Contact Info) Description 01/20/2019 Transcribed Document [facility] [place] [address] [place] [address] ProviderHaroldo MD [address] [place] [address] Social History Tobacco Use Types Packs/Day Years Used Date Smoking Tobacco: Never Assessed Sex and Gender Information Value Date Recorded Sex Assigned at Not on file Legal Sex Male 3:45 PM CDT Gender Identity Not on file Sexual Orientation Not on file documented as of this encounter Miscellaneous Notes * Cerner Conversion Note - Haroldo ProviderMD - 01/20/2019 12:33 PM CDT Pre Procedure Adult Entered On: 01/20/2019 12:39 EDT Performed On: 01/20/2019 12:33 EDT by CORRINA QUINTANA RN Height and Weight, Clinical Dosing Height Source : Stated Height Entry Format : [place] Height, Feet : 5 ft(Converted to: 152 cm, 60 Inch) Height, Inches : 9 Inch(Converted to: 0 ft 9 Inch, 22.86 cm) Clinical Height : 175.26 cm Weight Source : Standing scale Weight Entry Format : [place] Clinical Dosing Weight : 78.86 kg Weight, Pounds : 173 lb Weight, Ounces : 8 oz Body Surface Area (BSA) : 1.95 m2 Body Mass Index : 25.7 kg/m2 (HI) [place] Body Weight : 70 kg CORRINA QUINTANA RN - 01/20/2019 12:33 EDT Health Histories Smoking Status : 10 or more cigarettes (1/2 pack or more)/day in last 30 days Smokeless Tobacco Status : Never Desires Tobacco Cessation Medication : No Reason for No Tobacco Cessation Medication : Refuses FDA approved medications CORRINA QUINTANA RN - 01/20/2019 12:33 EDT Social History (As Of: 01/20/2019 12:39:50 EDT) Tobacco: Use in Last 12 Months: [...] 02/07/2017 12:26:55 EDT by Jack Aldana, RN) Infectious Disease History Infectious Disease History : Chicken pox/Shingles, Influenza, Measles, Mumps, Rubella Isolation Needed : Standard Fever/Chills Last 48 Hours : No Travel To Regions with Travel Advisories : No Travel Outside [place] Within Last 30 Days : No Contact With Traveler to Advisory Region : No Tuberculosis Symptoms : None CORRINA QUINTANA RN - 01/20/2019 12:33 EDT Anesthesia/Transfusion History Family History of Anesthesia Reaction : Unknown Transfusion History : No prior anesthesia Family History of Anesthesia Reaction : None, Unknown Intubation History : Unknown CORRINA QUINTANA RN - 01/20/2019 12:33 EDT Functional Assessment Living Situation : Home Current Home Treatments : CPAP CORRINA QUINTANA RN - 01/20/2019 12:33 EDT Psychosocial History Chronic/Terminal Illness w/Freq Visits : No Do You Have a History of the Following? : Patient denies history Currently in Unsafe Situation : No Tried to Harm Yourself in the Past? : No Thoughts of Harming/Killing Yourself : No CORRINA QUINTANA RN - 01/20/2019 12:33 EDT Advance Directive Patient has Advance Directive *Q : No, patient refuses Advance Directive information CORRINA QUINTANA RN - 01/20/2019 12:33 EDT General Info Preferred Name : Clint Support Person/Patient Assembler Wire Mesh Gate : Yes Support Person/Pt Rep Name : Enriqueta - Contact Password : peanut Support Person/Pt Rep Contact Information : [phone] Want Family/Rep/Phys Notified of Admit : No Emergency Contact #1 : Enriqueta Emergency Contact #1 Emergency Contact #1 Relationship : spouse Emergency Contact #2 : none Emergency Contact #2 Phone Number : none Emergency Contact #2 Relationship : none Chief Complaint : GERD Information Obtained From : Patient Primary Language : Lebanese Communication Barrier : None CORRINA QUINTANA RN - 01/20/2019 12:33 EDT Vital Measurements Temperature Source : Oral Temperature Mode : Fahrenheit Temperature, Fahrenheit : 98.1 Deg F Clinical Temperature, C : 36.7 Deg C Pulse Method : Non-Invasive BP Device Peripheral Pulse Rate : 83 bpm Pulse Rhythm : Regular Respiratory Rate : 19 Breaths/Min Blood Pressure Source : Non-Invasive BP Device Systolic Blood Pressure : 143 mmHg (HI) Diastolic Blood Pressure : 72 mmHg Oxygen Saturation : 98 % Oxygen Therapy Mode : Room air CORRINA QUINTANA RN - 01/20/2019 12:33 EDT Sleep Apnea Risk Assmt BiPAP/CPAP Ordered for Home Use : Yes Hx of Obstructive Sleep Apnea Diagnosis : Yes BiPAP/CPAP Used at Home : Yes Age over 50 Years Old : Yes Gender Male : Yes CORRINA QUINTANA RN - 01/20/2019 12:33 EDT Unruly Scale Unruly Sensory Perception : No impairment Unruly Moisture : Rarely moist Unruly Activity : Walks frequently Unruly Mobility : No limitation Unruly Nutrition : Excellent Unruly Friction and Shear : No apparent problem Unruly Score : 23 CORRINA QUINTANA RN - 01/20/2019 12:33 EDT Fall Risk Scales ABCs Fall Injury [...] Scale Risk Level : 0-24 Low Risk [place] Fall Interventions : Adequate lighting, Assistive devices within reach, Bed in low position, Call device within reach, Fall prevention handout/education per facility policy, Frequent orientation to call device, Frequent orientation to surroundings, Hourly comfort/safety rounds, Personal items within reach, Reinforced to call for assistance before getting out of bed, Room free of clutter/spills, Upper side-rails up, Wheels locked, Wires/Cords secured CORRINA QUINTANA RN - 01/20/2019 12:33 EDT Valuables and Belongings Valuables and Belongings : Clothing Clothing : Common streetwear Clothing Disposition : Bedside CORRINA QUINTANA RN - 01/20/2019 12:33 EDT documented in this encounter Plan of Treatment Not on file documented as of this encounter Visit Diagnoses Not on filedocumented in this encounter Care Teams Process Control Specialist Relationship Specialty Start Date End Date Marielos Amaral, KAYE [address] [place] [address] PCP - General Nurse Practitioner 08/18/23 documented as of this encounter
--- OUTSIDE RECORDS SUMMARY | 2025-05-14 20:35 | XMS_ITS | Encounter Summary ---
Author Organization [employer] ([place], [place], [place], [place]) Address [address] [place] [address] Care Team Providers Care Waste Hand Name Role Phone Marielos Amaral KAYE Primary Care Provider Encounter Details Date Type Department Care Team (Late st Contact Info) Description 10/18/[address] [facility] [place] [address] [place] [address] ProviderHaroldo MD [address] [place] [address] Social History Tobacco Use Types Packs/Day Years Used Date Smoking Tobacco: Never Assessed Sex and Gender Information Value Date Recorded Sex Assigned at Not on file Legal Sex Male 3:45 PM CDT Gender Identity Not on file Sexual Orientation Not on file documented as of this encounter Miscellaneous Notes * Cerner Conversion Note - Haroldo ProviderMD - 10/18/2019 8:04 AM COMPOUND MIXER UM Authorization Entered On: 10/18/2019 8:04 EST Performed On: 10/18/2019 8:04 EST by DIONE REY Communications Tower Technician Primary Insurance Authorization Authorization and Policy Numbers : Insurance 1 Health Plan: [employer] [place] Policy Number: [id number] Authorization Number: Insurance Primary Name : [employer] HMO Policy Number: [id number] Authorization Status-Primary : Notification only Auth/Referral Contact Name-Primary : Wenceslao R Authorization Number-Primary : [id number] Authorized Service Begin Date-Primary : 10/14/2019 EST Authorization Comments-Primary : inpt approved per email from Wenceslao Schmidt with [employer] auth# [id number] Historical Authorization Comments-Primary : Comment 1: ref# per star notes (Mary Haynes, Rn-Utilization Review 10/15/2019 08:57) Comment 2: clinical faxed per [employer] for ip auth (Mary Haynes, Rn-Utilization Review 10/15/2019 08:55) DIONE REY, Communications Tower Technician - 10/18/2019 8:04 EST Electronically signed by Brittany [facility] Conversion Restaurant Shift Supervisor Cerner at 01/24/2023 10:23 AM CDT documented in this encounter Plan of Treatment Not on file documented as of this encounter Visit Diagnoses Not on filedocumented in this encounter Care Teams Waste Hand Relationship Specialty Start Date End Date AmaralRosettee, DIGITAL ADVISOR [address] [address] PCP - General Nurse Practitioner 08/18/23 documented as of this encounter
--- OUTSIDE RECORDS SUMMARY | 2025-05-14 20:35 | XMS_ITS | Encounter Summary ---
Author Organization [employer] ([place], [place], [place], [place]) Address [address] [place] [address] Care Team Providers Care Single Stayer Operator Name Role Phone Marielos Amaral KAYE Primary Care Provider Encounter Details Date Type Department Care Team (Late st Contact Info) Description 04/12/2020 Transcribed Document [facility] [place] [address] [place] [address] ProviderHaroldo MD [address] [place] [address] Social History Tobacco Use Types Packs/Day Years Used Date Smoking Tobacco: Never Assessed Sex and Gender Information Value Date Recorded Sex Assigned at Not on file Legal Sex Male 3:45 PM CDT Gender Identity Not on file Sexual Orientation Not on file documented as of this encounter Miscellaneous Notes * Cerner Conversion Note - Haroldo ProviderMD - 04/12/2020 7:58 AM CDT [address] [address] ELINA ZACKARY COOK :1950 Visit Time:04/12/2020 What to do next Instructions From Your Care Team Diet after Discharge: Do not drink any alcoholic beverages, Drink at least 8-10 glasses of water per day Activity after Discharge: As tolerated, Rest and relax today, No strenuous activity Driving after Discharge: Do not drive for 24 hours May Return to Work/School: [employer] Notify Provider of: Questions or Problems For follow up, Await Biopsy results from Dr Lopez Follow-Up Appointments Follow Up with PRINCESS LOPEZ MD-GAE When Only if needed Comments follow up as directed Where: [address] [id number]- Medications What How Much When Instructions Next Dose apixaban (Eliquis 5 mg oral tablet) 1 Tablet(s) Oral Two Times A Day levothyroxine (Synthroid 100 mcg (0.1 mg) oral tablet) 1 Tablet(s) Oral Every Day nitroglycerin acetaminophen (Tylenol 325 mg oral tablet) 2 Tablet(s) Oral Every 4 Hours as needed for Pain (Mild 1-3) amiodarone (amiodarone 200 mg oral tablet) 1 Tablet(s) Oral Every Day atorvastatin (atorvastatin 40 mg oral tablet) 1 Tablet(s) Oral At Bedtime cholecalciferol (Vitamin D3 1000 intl units oral tablet) 1 Tablet(s) Oral Every Day cyanocobalamin (Vitamin B12 1000 mcg oral tablet) 1 Tablet(s) Oral Every Day glimepiride (glimepiride 4 mg oral tablet) 1 Tablet(s) Oral Two Times A Day lisinopril (lisinopril 40 mg oral tablet) [...] Tomatoes and foods made with tomatoes. ? [place] or spicy foods. ? Chocolate and peppermint. ??? Do not drink alcohol. General instructions ??? Take selq-avb-ovtsnyi and prescription medicines only as told by [...] 12/12/2004 Document Revised: 01/18/2019 Document Reviewed: 01/18/2019 [employer] Interactive Patient Education ?? 2020 [employer]. General Anesthesia, Adult, Care After This sheet [...] activities are safe for you. ??? Take dirc-awq-msuvehk and prescription medicines only as told by [...] 12/29/2001 Document Revised: 05/08/2018 Document Reviewed: 05/08/2018 [employer] Interactive Patient Education ?? 2020 [employer] ESOPHAGOGASTRODUODENOSCOPY Care After Read the instructions outlined [...] call your doctor. HOME CARE INSTRUCTIONS: ACTIVITY: ??? You may resume your regular activity tomorrow, but move at a slower pace for the next 24 hours. ??? Take frequent rest periods for the next 24 hours. ??? Walking will help get rid of the air and reduce the bloated feeling in your belly (abdomen). ??? No driving for 24 hours because of the medication (sedation) used during the test. ??? You may shower. ??? Do not sign any important legal documents or operate any machinery for 24 hours (because of the sedation used during the test). NUTRITION: ??? Drink plenty of fluids. ??? You may resume your normal diet or as instructed by your doctor ??? Begin with a light meal and progress to your normal diet. Heavy or fried foods are harder to digest and may make you feel sick to your stomach (nauseated). ??? Avoid alcoholic beverages for 24 hours or as instructed. MEDICATIONS: ??? You may resume your normal medications unless your doctor tells you otherwise. WHAT TO EXPECT TODAY: ??? Some feelings of bloating in the abdomen. ??? Excessive burping today and passage of more gas than usual. ??? A sore throat can be normal. Use throat lozenges or gargle with warm salt water and drink plenty of fluids. FINDING OUT THE RESULTS OF YOUR TEST: ??? Not all test results are available during your visit. If you had biopsies or other tests done during your procedure, you can make an appointment with your doctor to get the results. Sometimes you may be instructed to call the doctor???s office for your results. It is important for you to follow up on all of your test results. SEEK IMMEDIATE MEDICAL CARE IF: ??? You cannot eat or drink. ??? You have worsening throat or chest pain. ??? You have dizziness, lightheadedness, or you faint. ??? You have severe nausea or vomiting. ??? You have a fever greater than 101. ??? You have chills. ??? You have severe abdominal pain or discomfort that gets worse throughout the day. ??? You have black, tarry, or bloody stools. Emergency Awareness and Preventative Care STROKE is [...] Assistance with quitting is available by contacting 4-274-CCOZ-NOW. This is a free resource providing counseling, [...] This Visit (last charted value for your 04/12/2020 visit) Microbiology 04/10/2020 10:56 AM Novel Coronavirus 2019: Not Detected General Chemistry 04/12/2020 7:09 AM Glucose POC2: 88 mg/dL -- Normal range between ( 70 and 110 ) Patient Name:ZACKARY ANTOINE I have received this information and was given the opportunity to ask questions. Patient/Bakeshop Cleaner Name: Patient/Bakeshop Cleaner Signature: Relationship to Patient: Clinician/Hospital Bakeshop Cleaner Signature: Date: documented in this encounter Plan of Treatment Not on file documented as of this encounter Visit Diagnoses Not on filedocumented in this encounter Care Teams Single Stayer Operator Relationship Specialty Start Date End Date Marielos Amaral, SWISS TYPE SCREW MACHINE OPERATOR [address] [place] [address] PCP - General Nurse Practitioner 08/18/23 documented as of this encounter
--- OUTSIDE RECORDS SUMMARY | 2025-05-14 20:35 | XMS_ITS | Encounter Summary ---
Author Organization [employer] ([place], [place], [place], [place]) Address [address] [place] [address] Care Team Providers Care Jacquard Card Cutter Name Role Phone Marielos Amaral PALEONTOLOGY TEACHER Primary Care Provider Encounter Details Date Type Department Care Team (Late st Contact Info) Description 10/17/2019 Transcribed Document [facility] [place] Medicine [address] [place] [address] ProviderHaroldo MD [address] [place] [address] Social History Tobacco Use Types Packs/Day Years Used Date Smoking Tobacco: Never Assessed Sex and Gender Information Value Date Recorded Sex Assigned at Not on file Legal Sex Male 3:45 PM CDT Gender Identity Not on file Sexual Orientation Not on file documented as of this encounter Miscellaneous Notes * Cerner Conversion Note - Historical ProviderMD - 10/17/2019 11:43 AM [facility] Patient: ZACKARY ANTOINE Age: 68 Years Sex: Male : 1950 Subjective Patient walked 200 feet with supervision in PT yesterday. He states that his right leg feels normal now. Review of Systems Cardiac - no chest pain today. Objective Vitals & Measurements T: 36.4 ??C HR: 70(Monitored) RR: 22 BP: 137/62 SpO2: 97% HT: 175.26 cm WT: 85.1 kg BMI: 27.71 Physical Exam EOMI Speech - fluent Motor - 5/5 in both legs. Assessment/Plan 68 year old male with atrial fibrillation and previous stroke in 2019 who received IV tPA on October 14 for acute onset of right leg weakness occurring in the setting of having missed his Eliquis dose for several days. His cranial imaging studies show no acute process and he feels back to normal . I feel that the most likely cause of his symptoms is a stroke aborted by tPA. At this time , I would recommend the following : 1) Resume Eliquis and I have reminded him not to miss doses in the future. 2) I agree with resuming his home statin. 3) At discharge, I have instructed patient not to drive or operate heavy machinery until released by a physician. 4) At discharge , he should follow up with an outpatient neurologist. 5) I agree with treating hypothyroidism. Medications Inpatient amiodarone, 200 mg= 1 Tab, Oral, Daily atorvastatin, 40 mg= 1 Tab, Oral, At Bedtime Colace, 100 mg= 1 Cap, Oral, BID DuoNeb 0.5 mg-2.5 mg/3 mL inhalation solution, 3 mL, Nebulized Inhalation , RT_Q6H, PRN Eliquis, 5 mg= 1 Tab, Oral, [id number] Flomax, 0.4 mg= 1 Cap, Oral, Daily glimepiride, 4 mg= 1 Tab, Oral, BID hydrALAZINE, 10 mg= 0.5 mL, IV Push, Q6H, PRN insulin lispro sliding scale, Scale A:, SubCutaneous, AC and at Bedtime lisinopril, 20 mg= 1 Tab, Oral, Daily Metoprolol Succinate ER, 50 mg= 1 Tab, Oral, Daily MiraLax, 17 Gram= 1 Packet, Oral, Daily, PRN niCARdipine injection 25 mg + NaCl 0.9% for drip 250 mL nitroglycerin, 0.4 mg= 1 Tab, SubLINgual, 1-Time, PRN Protonix, 40 mg= 1 Tab, Oral, Daily Synthroid, 100 mcg= 1 Tab, Oral, Daily Tylenol, 650 mg= 2 Tab, Oral, Q4H, PRN Zofran, 4 mg= 2 mL, IV Push, Q4H, PRN Electronically signed by Brittany [facility] Conversion Energy Operations Vice President [employer] at 01/24/2023 10:40 AM CDT documented in this encounter Plan of Treatment Not on file documented as of this encounter Visit Diagnoses Not on filedocumented in this encounter Care Teams Jacquard Card Cutter Relationship Specialty Start Date End Date Marielos Amaral, PALEONTOLOGY TEACHER [address] [id number] PCP - General Nurse Practitioner 08/18/23 documented as of this encounter
--- OUTSIDE RECORDS SUMMARY | 2025-05-14 20:35 | XMS_ITS | Encounter Summary ---
Author Organization [employer] ([place], [place], [place], [place]) Address [address] [place] [address] Care Team Providers Care Bindery Operator Name Role Phone Marielos Amaral KAYE Primary Care Provider [phone] Encounter Details Date Type Department Care Team (Late st Contact Info) Description 02/06/2019 Transcribed Document [facility] [place] [address] [place] [address] ProviderHaroldo MD [address] [place] [address] Social History Tobacco Use Types Packs/Day Years Used Date Smoking Tobacco: Never Assessed Sex and Gender Information Value Date Recorded Sex Assigned at Not on file Legal Sex Male 3:45 PM CDT Gender Identity Not on file Sexual Orientation Not on file documented as of this encounter Miscellaneous Notes * Cerner Conversion Note - Haroldo ProviderMD - 02/06/2019 12:17 AM CDT Nutrition Assessment Entered On: 02/08/2019 10:44 EDT Performed On: 02/08/2019 14:42 EDT by TONI BHATT, WOLF, LD Nutrition Assessment Current Nutrition Regimen Comment : 02/08: Automatic referral rec'd for stroke protocol. Spoke with pt, reports that his appetite is good. States he has had a 20# wt loss x 3 months. UBW is 195#, this is indicative of a 10%, significant wt loss. Pt reports some wt loss may be 2/2 diet changes after removal of lesions from esophagus. Pt agreeable to try Glucerna. No physical signs of malnutrition observed. Pt denied any questions about therapeutic diet at this time. 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 Skin: WNLs Ht: 69 Wt: 175# wt hx: 173# (01/20) BMI: 25.8 IBW: 160#/109% TONI BHATT RD, MAGDI - 02/08/2019 14:35 EDT Nutrition Assessment Reason : Automatic referral TONI BHATT RD, MAGDI - 02/08/2019 10:44 EDT Nutrition Diagnoses Weight : Unintended weight loss Weight Related to : clinical condition Weight As Evidenced by : pt reported 20#/10% wt loss x 3 months Weight Status : Active TONI BHATT RD, MAGDI - 02/08/2019 14:35 EDT Nutrition Interventions Meals and Snacks : Carbohydrate-modified diet Nutrition Supplement Therapy : Commercial beverage TONI BHATT RD, MAGDI - 02/08/2019 14:35 EDT Monitoring/Evaluation Energy Intake : Total energy intake Food Intake : Amount of food Protein Intake : Total protein Weight Status : Weight gain, Weight loss Gastrointestinal Function : Bowel Function TONI BHATT RD, MAGDI - 02/08/2019 14:35 EDT Nutrition Recommendations Dietitian Recommendations : 1. Continue current diet regimen as tolerated; Will add Glucerna BID. Goal: >50% intake 2. Adjust insulin regimen PRN Goal: BG WNLs 3. Obtain weight 1-2x/wk Goal: no unintentional changes High Risk Nutrition Care Level : High TONI BHATT RD, MAGDI - 02/08/2019 14:35 EDT documented in this encounter Plan of Treatment Not on file documented as of this encounter Visit Diagnoses Not on filedocumented in this encounter Care Teams Bindery Operator Relationship Specialty Start Date End Date Marielos Amaral APRN [address] [address] PCP - General Nurse Practitioner 08/18/23 documented as of this encounter
--- OUTSIDE RECORDS SUMMARY | 2025-05-14 20:35 | XMS_ITS | Encounter Summary ---
Author Organization [employer] ([place], [place], [place], [place]) Address [address] [place] [address] Care Team Providers Care Apprentice Funeral Director Name Role Phone Marielos Amaral KAYE Primary Care Provider Encounter Details Date Type Department Care Team (Late st Contact Info) Description 04/12/2020 Transcribed Document [facility] [place] [address] [place] [address] ProviderHaroldo MD [address] [place] [address] Social History Tobacco Use Types Packs/Day Years Used Date Smoking Tobacco: Never Assessed Sex and Gender Information Value Date Recorded Sex Assigned at Not on file Legal Sex Male 3:45 PM CDT Gender Identity Not on file Sexual Orientation Not on file documented as of this encounter Miscellaneous Notes * Cerner Conversion Note - Haroldo ProviderMD - 04/12/2020 7:05 AM CDT Pre Procedure Adult Entered On: 04/12/2020 7:10 EDT Performed On: 04/12/2020 7:05 EDT by Roxana Brady RN Height and Weight, Clinical Dosing Height Source : Stated Height Entry Format : [place] Height, Feet : 5 ft(Converted to: 152 cm, 60 Inch) Height, Inches : 10 Inch(Converted to: 0 ft 10 Inch, 25.40 cm) Clinical Height : 177.8 cm Weight Source : Standing scale Weight Entry Format : [place] Clinical Dosing Weight : 88.64 kg Weight, Pounds : 195 lb Body Surface Area (BSA) : 2.07 m2 Body Mass Index : 28 kg/m2 (HI) [place] Body Weight : 72 kg Roxana Brady RN - 04/12/2020 7:05 EDT Health Histories Smoking Status : Smoker, current status unknown Smokeless Tobacco Status : Never Desires Tobacco Cessation Medication : No Reason for No Tobacco Cessation Medication : ED/procedural patient only Roxana Brady RN - 04/12/2020 7:05 EDT Social History (As Of: 04/12/2020 07:10:29 EDT) Tobacco: Use in Last 12 Months: [...] 04/14/2019 14:21:23 EDT by MIKO GALLAGHER, LUIS) Alcohol: Alcohol Use History Yes. Date/Time [...] 04/14/2019 14:22:28 EDT by MIKO GALLAGHER, LUIS) Infectious Disease History Has the patient ever been tested for COVID-19? : Yes, Patient stated results Negative COVID19 Screening : No Experiencing Infectious Disease Symptoms : No symptoms Physical contact outside [place] in the last 30 days : No Infectious Disease Symptoms Score : 0 Infectious Disease History : Chicken pox/Shingles, Influenza, Measles, Mumps, Rubella Tuberculosis Symptoms : None Roxana Brady RN - 04/12/2020 7:05 EDT COVID19 PreProcedure Screening Is this an Emergent or Add on Procedure? : No Has patient been isolated since the test : Yes Exposed to COVID19 symptoms since test? : No Roxana Brady RN - 04/12/2020 7:05 EDT Anesthesia/Transfusion History Family History of Anesthesia Reaction : No prior transfusion(s) Transfusion History : Prior anesthesia without reaction Family History of Anesthesia Reaction : None Intubation History : Unknown Roxana Brady RN - 04/12/2020 7:05 EDT Functional Assessment Living Situation : Home Patient Lives With : Spouse Current Home Treatments : Blood glucose monitoring, CPAP Roxana Brady RN - 04/12/2020 7:05 EDT [place] Suicide Severity Rating Scale (C-SSRS) CSSRS Past Month Wish to be : No CSSRS Past Month Suicidal Thoughts : No CSSRS Lifetime Suicide Behavior : No Suicide Severity Rating Score : 0 Suicide Severity Rating : No Additional Care Required at this time Roxana Brady RN - 04/12/2020 7:05 EDT Psychosocial History Chronic/Terminal Illness w/Freq Visits : No Do You Have a History of the Following? : Patient denies history Currently in Unsafe Situation : No Roxana Brady RN - 04/12/2020 7:05 EDT Advance Directive Patient has Advance Directive *Q : Yes, Advance Directive on file Advance Directive Type : Living will Copy Advance Directive Verified/on Chart : No Roxaan Brady RN - 04/12/2020 7:05 EDT General Info Preferred Name : Clint Legal Guardian : No Support Person/Patient Branch Manager : Yes Support Person/Pt Rep Name : Enriqueta - Contact Password : melanie Support Person/Pt Rep Contact Information : [phone] Want Family/Rep/Phys Notified of Admit : Yes Name/Contact Info Fam/Rep Notified Adm : na Name/Contact Info Physician Notified Adm : Axel Hamlin Emergency Contact #1 : Enriqueta Carrasco Emergency Contact #1 Emergency Contact #1 Relationship : spouse Emergency Contact #2 : na Emergency Contact #2 Phone Number : na Emergency Contact #2 Relationship : na Primary Language : Armenian Preferred Communication Mode : Verbal Communication Barrier : None Animal Herder Needed : No Roxana Brady RN - 04/12/2020 7:05 EDT Sleep Apnea Risk Assmt BiPAP/CPAP Ordered for Home Use : Yes Hx of Obstructive Sleep Apnea Diagnosis : Yes BiPAP/CPAP Used at Home : No Reason BiPAP/CPAP Not Used at Home : hurts back of head Age over 50 Years Old : Yes Gender Male : Yes Roxana Brady RN - 04/12/2020 7:05 EDT Unruly Scale Unruly Sensory Perception : No impairment Unruly Moisture : Rarely moist Unruly Activity : Walks frequently Unruly Mobility : No limitation Unruly Nutrition : Excellent Unruly Friction and Shear : No apparent problem Unruly Score : 23 Roxana Brady RN - 04/12/2020 7:05 EDT Fall Risk Scales ABCs Fall Injury [...] Scale Risk Level : 0-24 Low Risk [place] Fall Interventions : Call device within reach, Wheels locked Roxana Brady RN - 04/12/2020 7:05 EDT Valuables and Belongings Valuables and Belongings : Clothing Clothing : Common streetwear Clothing Disposition : Bedside Roxana Brady RN - 04/12/2020 7:05 EDT documented in this encounter Plan of Treatment Not on file documented as of this encounter Visit Diagnoses Not on filedocumented in this encounter Care Teams Apprentice Funeral Director Relationship Specialty Start Date End Date Marielos Amaral APRN [address] [address] PCP - General Nurse Practitioner 08/18/23 documented as of this encounter
--- OUTSIDE RECORDS SUMMARY | 2025-05-14 20:35 | XMS_ITS | Encounter Summary ---
Author Organization [employer] ([place], [place], [place], [place]) Address [address] [place] [address] Care Team Providers Care Executive Marketing Assistant Name Role Phone Marielos Amaral KAYE Primary Care Provider Encounter Details Date Type Department Care Team (Late st Contact Info) Description 02/06/2019 Transcribed Document [facility] [place] Family Medicine [address] [place] [address] ProviderHaroldo MD [address] [place] [address] Social History Tobacco Use Types Packs/Day Years Used Date Smoking Tobacco: Never Assessed Sex and Gender Information Value Date Recorded Sex Assigned at Not on file Legal Sex Male 3:45 PM CDT Gender Identity Not on file Sexual Orientation Not on file documented as of this encounter Miscellaneous Notes * Cerner Conversion Note - Haroldo ProviderMD - 02/06/2019 12:17 AM CDT Spiritual Care Assessment Entered On: 02/06/2019 14:20 EDT Performed On: 02/06/2019 14:05 EDT by JORDYN HART General Information Referred by : Physician Referral Reason Comment : Code Stroke assessment Ministry Provided to : Patient, Family/Significant other Spiritual Framework : Not integrated, provides little strength/resource Advent Preference : No moravian JORDYN HART - 02/06/2019 14:15 EDT Spiritual Assessment Patient's Community/Relationship : Strength in patient's life Supportive/Healthy Relationships : Yes Supportive Advent Community : No Spiritual Assessment Comment/Summary Points : Provided reflective listening as Mr. Carrasco processed his swati, family, and this current hospitalization; Swati is not a resource for Mr. Carrasco; Family is providing emotional support; is at bedside; Expressed gratitude for visit; Expressed no needs at this time; Will follow PRN Spirital Assessment Comment/Summary Report : SPIRITUAL ASSESSMENT COMMENT/SUMMARY No qualifying data available. HEAD, JORDYN - 02/06/2019 14:15 EDT Electronically signed by Brittany [facility] Conversion Paint Mixer Hand Cerner at 01/24/2023 10:19 AM CDT documented in this encounter Plan of Treatment Not on file documented as of this encounter Visit Diagnoses Not on filedocumented in this encounter Care Teams Executive Marketing Assistant Relationship Specialty Start Date End Date Marielos Amaral, KAYE [address] [place] [address] PCP - General Nurse Practitioner 08/18/23 documented as of this encounter
--- OUTSIDE RECORDS SUMMARY | 2025-05-14 20:35 | XMS_ITS | Encounter Summary ---
Author Organization [employer] ([place], [place], [place], [place]) Address [address] [place] [address] Care Team Providers Care Video Control Operator Name Role Phone Marielos Amaral APRN Primary Care Provider Encounter Details Date Type Department Care Team (Late st Contact Info) Description 10/17/2019 Transcribed Document [facility] [place] Family Medicine [address] [place] [address] ProviderHaroldo MD [address] [place] [address] Social History Tobacco Use Types Packs/Day Years Used Date Smoking Tobacco: Never Assessed Sex and Gender Information Value Date Recorded Sex Assigned at Not on file Legal Sex Male 3:45 PM CDT Gender Identity Not on file Sexual Orientation Not on file documented as of this encounter Miscellaneous Notes * Cerner Conversion Note - Haroldo ProviderMD - 10/17/2019 3:39 PM TESTING LEAD Patient: ZACKARY ANTOINE Age: 68 years Sex: Male : 1950 Associated Diagnoses: None Author: MAGED FORD MD-INT Subjective ADMIT DATE: 10/14/2018 DISCHARGE DATE: 10/17/2018 PCP: dr. Boubacar Ball ADMIT MD: dr. Lopes CONSULT TEAMS: [facility] Cardiology [facility] Neurology REASON FOR ADMIT: 68-year-old male with history of CAD, CABG, [...] on the right side from previous stroke. he was given tpa for possible acute CVA HOSPITAL COURSE: he was transferred to icu after tpa and he feel better gradually his right leg numbness and weak also better repeat CT showed no bleeding MRI of brain showed no acute CVA cardiology also consulted and he has no chest pain and he decided outpatient stress test as outpatient he also was found hypothyroid and synthroid started and need to follow up PCP to adjust dose saw him today and he much better and walk around and right leg back to his baseline. no chest pain and sob, no MORA discussed again his new diagnosis hypothyroid and need f/u his pcp and he understood. Objective VS/Measurements Vitals Signs (last 24 hrs) Last Charted Minimum Maximum Temp 98.3 (OCT 17:00) 97.6 (OCT 17 08:00) 98.3 (OCT 17:00) Apical HR 65 (OCT 17 08:09) 65 (OCT 17 08:09) 65 (OCT 17 08:09) Mon HR 69 (OCT 17:00) 56 (OCT 17 04:00) 77 (OCT 16 22:00) Resp Rate H 22 (OCT 17:00) 17 (OCT 17 05:00) H 37 (OCT 16 19:00) SBP H 162 (OCT 17 14:00) 103 (OCT 16 21:00) H 177 (OCT 16 19:30) DBP 72 (OCT 17 14:00) L 58 (OCT 16 21:00) H 91 (OCT 17 08:00) MAP 104 (OCT 17 14:00) 75 (OCT 16 21:00) 123 (OCT 16 17:00) SpO2 97 (OCT 17 14:00) L 93 (OCT 17 05:00) 98 (OCT 16 16:00) General: Alert and oriented, No acute distress. Neck: Supple, Non-tender, No jugular venous distention. [...] 15) 244 (OCT 14) Na 138 (OCT 16) 138 (OCT 15) 138 (OCT 14) K 3.8 (OCT 16) L 3.3 (OCT 15) 4.1 (OCT 14) Cl 109 (OCT 16) 108 (OCT 15) 106 (OCT 14) CO2 24 (OCT 16) 24 (OCT 15) 25 (OCT 14) BUN 15 (OCT 16) 19 (OCT 15) 20 (OCT 14) Cr 1.30 (OCT 16) 1.30 (OCT 15) H 1.70 (OCT 14) Glu R H 134 (OCT 16) 79 (OCT 15) H 172 (OCT 14) Ca 9.1 (OCT 16) 8.4 (OCT 15) 8.6 (OCT 14) PT [...] 3.3 (OCT 15) 3.6 (OCT 14) Troponin <0.015 (OCT 15) 0.020 (OCT 14) <0.015 (OCT 14) Radiology Results (Last 48 hours) [id number] -- 10/14/2019 17:19 CT Head WO (10/15/2019 17:24) Result: HEAD [...] agree with the above final transcribed report. echo Impression: Negative bubble study. Normal sized left ventricle. Mild left ventricular hypertrophy. Visually estimated ejection fraction 60- 65%. Normal left ventricular systolic function. No hemodynamically significant valvular dysfunction. No masses or thrombi are seen. Diagnosis / problem 1. Possible TIA or mini ischemic stroke with right-sided weakness - s/p tPA. 2. Chest pain on admit 3. Hypertension. 4. Dyslipidemia. 5. Diabetes. 6. Benign prostatic hyperplasia. 7. Tobacco dependence. 8. Possible LIANE on admit- resolved 9. h/o CAD CABG and stent 10. h/o CVA 11. h/o a-fib 12. new diagnosis- hypothyroid Discharge Medications (15) Active amiodarone 200 mg oral [...] 50 mg = 1 Tab, Oral, Daily Nitrostat 0.6 mg sublingual tablet 0.6 mg = 1 Tab, PRN, SubLINgual, Q5Min omeprazole 40 mg oral delayed release capsule [...] Int Units = 1 Tab, Oral, Daily FOLLOW UP: pcp in 2 weeks [facility] Cardiology in 1-[address] Krish Bose in 6 weeks I spent over 30 min today CC1: dr. Boubacar Ball CC2: [facility] Cardiology CC3: dr. Rutherford Electronically signed by Brittany [facility] Conversion Director [employer] at 01/24/2023 10:35 AM CDT documented in this encounter Plan of Treatment Not on file documented as of this encounter Visit Diagnoses Not on filedocumented in this encounter Care Teams Video Control Operator Relationship Specialty Start Date End Date Marielos Amaral, INSPECTOR RECEIVING [address] [place] [address] PCP - General Nurse Practitioner 08/18/23 documented as of this encounter
--- OUTSIDE RECORDS SUMMARY | 2025-05-14 20:35 | XMS_ITS | Encounter Summary ---
Author Organization [employer] ([place], [place], [place], [place]) Address [address] [place] [address] Care Team Providers Care Tobacco Grader Name Role Phone Marielos Amaral KAYE Primary Care Provider Encounter Details Date Type Department Care Team (Late st Contact Info) Description 02/06/2019 Transcribed Document [facility] [place] [address] [place] [address] ProviderHaroldo MD [address] [place] [address] Social History Tobacco Use Types Packs/Day Years Used Date Smoking Tobacco: Never Assessed Sex and Gender Information Value Date Recorded Sex Assigned at Not on file Legal Sex Male 3:45 PM CDT Gender Identity Not on file Sexual Orientation Not on file documented as of this encounter Miscellaneous Notes * Cerner Conversion Note - Haroldo ProviderMD - 02/06/2019 5:00 PM CDT Chart Check - Review Order Profile Entered On: 02/06/2019 17:07 EDT Performed On: 02/06/2019 17:00 EDT by Lina Chaudhary Rn-Flex Team Chart Check [employer] Initiated/Discontinued as Appropriate : Yes All Active Orders Reviewed : Yes Lina Chaudhary Rn-Flex Team - 02/06/2019 17:07 EDT documented in this encounter Plan of Treatment Not on file documented as of this encounter Visit Diagnoses Not on filedocumented in this encounter Care Teams Tobacco Grader Relationship Specialty Start Date End Date Amaral, Marielos, TALENT ACQUISITION LEAD [address] [place] [address] PCP - General Nurse Practitioner 08/18/23 documented as of this encounter
--- OUTSIDE RECORDS SUMMARY | 2025-05-14 20:35 | XMS_ITS | Encounter Summary ---
Author Organization [employer] ([place], [place], [place], [place]) Address [address] [place] [address] Care Team Providers Care Marble Coper Name Role Phone Marielos Amaral KAYE Primary Care Provider Encounter Details Date Type Department Care Team (Late st Contact Info) Description 02/06/[address] [facility] [place] Family Medicine [address] [place] [address] ProviderHaroldo MD [address] [place] [address] Social History Tobacco Use Types Packs/Day Years Used Date Smoking Tobacco: Never Assessed Sex and Gender Information Value Date Recorded Sex Assigned at Not on file Legal Sex Male 3:45 PM CDT Gender Identity Not on file Sexual Orientation Not on file documented as of this encounter Miscellaneous Notes * Cerner Conversion Note - Haroldo ProviderMD - 02/06/2019 12:17 AM CDT Evaluation, Occupational Therapy Entered On: 02/08/2019 14:53 EDT Performed On: 02/08/2019 11:08 EDT by SANDI SERRANO OTR/L General Information, OT Therapy Diagnosis, OT : Decreased ind in ADL and functional mobility Onset of Problem, OT : 02/08/2019 EDT General Information Comment, OT : CVA Rweakness. Ataxia. Hx CABG SANDI SERRANO OTR/L - 02/08/2019 14:53 EDT Visit Type, OT : Initial evaluation Patient Orders : Order Date Order Ordering 02/06/2019 00:17 OT Evaluation and Treatment Ordered By: FIORELLA OWENS MD-INT Active Diagnoses : 02/05/2019 00:00 Ataxia, unspecified 02/05/2019 00:00 Weakness Admission Date : 02/07/2019 11:53 Co-treated by, OT : Physical Therapist Personal Devices : Personal Devices No Devices Recorded Assistive Devices : Assistive Devices No Devices Recorded SANDI SERRANO OTR/Melvin - 02/08/2019 14:52 EDT General Status Patient Received Status : Supine in bed Treatment Start Time : 02/08/2019 10:50 EDT Patient Left Status : Supine in bed, RN/PCT informed, Family/Visitors at bedside, All needs met and within reach Treatment End Time : 02/08/2019 11:09 EDT Treatment Time : 19 Minute(s) SANDI SERRANO OTR/L - 02/08/2019 14:53 EDT History and Environment, OT Living Situation, Therapy : Home Patient Lives With : Spouse Persons Assisting Patient at Home : Alone Professional Skilled Services : None Persons Providing Information : Patient, Spouse Home Setup : Basement, One story Bedroom [...] : Yes Outside Railing Position : Bilateral ASNDI SERRANO OTR/Melvin Strong 02/08/2019 14:53 EDT Prior LOF Bathing, OT : Independent Prior LOF Bed Mobility : Independent Prior LOF Upper Body Dressing, OT : Independent Prior LOF Lower Body Dressing, OT : Independent Prior LOF Toileting : Independent Prior LOF Transfer : Independent Prior LOF Grooming, OT : Independent Prior LOF for IADLs, OT : Independent SANDI SERRANO OTR/Melvin Strong 02/08/2019 14:53 EDT Upper Extremity Upper Extremity Dominance : Right Right UE Active ROM : WFL Right UE Strength : WFL Left UE Active ROM : WFL Left UE Strength : WFL SANDI SERRANO OTR/L - 02/08/2019 14:53 EDT Self Care/Home Management, OT Self Feeding Assist Level, OT : Supervision or set-up Grooming Assist Level, OT : Supervision or set-up Bathing Assist Level, OT : Independent, complete Upper Body Dressing Assist Level, OT : Independent, complete Lower Body Dressing Assist Level, OT : Independent, complete Toileting Assist Level : Independent, complete Toilet Transfer Assist Level : Independent, complete SANDI SERRANO OTR/Melvin - 02/08/2019 14:53 EDT Functional Mobility Mobility Grid Bed Roll Left : Rehab Modified independence Bed Roll Right : Rehab Modified independence Bed Scooting : Rehab Modified independence Supine to Sit : Rehab Modified independence Sit to Stand : Rehab Modified independence Bed to Chair : Supervision/set-up Chair to Bed : Supervision/set-up Stand to Sit : Rehab Modified independence Sit to Supine : Rehab Modified independence SANDI SERRANO OTR/Melvin - 02/08/2019 14:53 EDT Cognition Assessment, OT Orientation : Oriented x 4 SANDI SERRANO OTR/Melvin Strong 02/08/2019 14:53 EDT Indication Assessment, OT Occupational Therapy Indicated : Yes Problem List, OT : Impaired, activities daily living, Impaired, coordination/proprioception, Impaired, strength Potential Barriers, OT : Acuity of illness Rehabilitation Potential, OT : Good SANDI SERRANO OTR/Melvin Strong 02/08/2019 14:53 EDT Plan of Care, OT OT Tx Plan/Goals Established w Patient : Yes OT Frequency Rehab : Five days per week OT Duration Rehab : Fourteen days OT Treatments Planned : Activities of daily living, Balance training, Cognitive/perceptual, Functional mobility training, Safety education, Therapeutic activities SANDI SERRANO OTR/Melvin - 02/08/2019 14:53 EDT Certified Nutritionist Goals, OT Grooming LTG Grid Goal #1 Activity : Grooming Assist : Independent, complete Date to Meet : 02/22/2019 EDT Goal Status : Initial goal SANDI SERRANO OTR/Melvin Strong 02/08/2019 14:53 EDT Other LTG Grid Goal #1 Goal #2 Goal : Pt will demonstrate good coordination with ADL tasks without need for correction Pt will demonstrate equal speed for 9 hole peg test for BUE Date to Meet : 02/22/2019 EDT 02/22/2019 EDT Goal Status : Initial goal Initial goal SANDI SERRANO OTR/Melvin Strong 02/08/2019 14:53 EDT SANDI SERRANO OTR/L - 02/08/2019 14:53 EDT Treatment Note Subjective Comment : Per RN Lina - ok to evaluate pt. Pt agreeable. Patient's Response to Treatment : Pt tolerated well. Additional Objective Information : Pt supine in bed and transfered to EOB. pt ambulated out in hallway and demonstrated supervision. pt coordination tested and pt limited in RUE. Pt given sheet of tasks for fine motor and gross motor coordination. Pt also given sheet of theraputty exercises and theraputty. Assessment : Pt will benefit from continued skilled oT services due to coordination of RUE. Plan for Treatment : See LTG SANDI SERRANO OTR/L - 02/08/2019 14:53 EDT Pain Assessment Pain Scaled Used : 0-10 Pain scale Pain Score Pre-Intervention : 0 SANDI SERRANO OTR/L - 02/08/2019 14:53 EDT Image 1 - Images currently included in the form version of this document have not been included in the text rendition version of the form. Anticipated Discharge Needs, OT/PT Anticipated Discharge to : Outpatient rehabilitation SANDI SERRANO OTR/L - 02/08/2019 14:53 EDT [place] OT Charges OT Ther Activities Ea 15 Min : 1 OT Eval Low Complexity : 1 SANDI SERRANO OTR/L - 02/08/2019 14:53 EDT documented in this encounter Plan of Treatment Not on file documented as of this encounter Visit Diagnoses Not on filedocumented in this encounter Care Teams Marble Coper Relationship Specialty Start Date End Date Marielos Amaral, JEWELRY REPAIRER [address] [address] PCP - General Nurse Practitioner 08/18/23 documented as of this encounter
--- OUTSIDE RECORDS SUMMARY | 2025-05-14 20:35 | XMS_ITS | Encounter Summary ---
Author Organization [employer] ([place], [place], [place], [place]) Address [address] [place] [address] Care Team Providers Care Timber Framer Helper Name Role Phone Marielos Amaral APRN Primary Care Provider [phone] Encounter Details Date Type Department Care Team (Late st Contact Info) Description 02/06/2019 Transcribed Document [facility] Radiology [address] [place] [phone] Camilo Steven MD [address] [place] [address] Social History Tobacco Use Types Packs/Day Years Used Date Smoking Tobacco: Never Assessed Sex and Gender Information Value Date Recorded Sex Assigned at Not on file Legal Sex Male 3:45 PM CDT Gender Identity Not on file Sexual Orientation Not on file documented as of this encounter Miscellaneous Notes * Cerner Conversion Note - Camilo Steven MD - 02/06/2019 4:03 PM EDT Patient: ZACKARY ANTOINE Age: 68 years Sex: Male : 1950 Associated Diagnoses: None Author: CAMILO STEVEN MD-CAR Basic Information PCP: KATELYN MCKEON (REF)- MD Chief Complaint Paroxysmal Atrial Fibrillation ( OAC consult) in setting of possible TIA History of Present Illness Patient is a 68 year old male with PMH of PAF, CAD s/p CABG (2 yrs ago), HTN, HLD that presented to [facility] ED at almost midnight last nite (02/05/19) due to right shoulder pain and weakness to right arm, with loss of balance, with bilateral roller engraver strength reduced and sensation to right arm/leg, but no facial droop or slurred speech. Patient has been on Amiodarone, Metoprolol and Aspirin for PAF but no OAC. Patient is followedby Dr. Sarai Peterson in [place]. Cardiology consulted for further evaluation and medical management. patient denied any chest pain resting or exertional. Denied any cardiac events since the CABG 2 years ago.He has been on amiodarone for his paroxysmal atrial fibrillation since after the surgery. He denied palpitation dizziness falling down or passing out. No orthopnea PND or leg swelling. He is physically active.He denied bleeding anywhere. There is no contraindication to anticoagulate the patient before. His MRI showed acute small infarct. We will plan for anticoagulation once cleared by the neurology to startOAC. Discussed the anticoagulation plan with the patient. And the patient agrees. His was with him in the room. Review of Systems Constitutional: [No fevers, chills, sweats] Eye: [No recent visual problems, eye discharge, eye pain, redness] HEENT: [No ear pain, nasal congestion, sore throat, voice changes] Respiratory: [No shortness of breath, cough, pain on breathing, sputum production] Cardiovascular: [No Chest pain, palpitations, syncope, shortness of breath while laying flat] Gastrointestinal: [No nausea, vomiting, diarrhea, constipation] Genitourinary: [No hematuria, dysuria, incontinence, lesions on genitalia] Rober/Lymph: [Negative for bruising tendency, swollen lymph glands, nosebleeds, history of anticoagulation] Endocrine: [Negative for excessive thirst, excessive hunger, excessive urination, heat or cold intolerance] Musculoskeletal: [No back pain, neck pain, joint pain, muscle pain, decreased range of motion] Integumentary: [No rash, pruritus, abrasions, lesions] Neurologic: [No weakness, numbness, frequent headaches, tremors, blackouts ] Psychiatric: [No anxiety, depression, mood changes, hallucinations] Constitutional: No fever, No chills, No sweats, No weakness, No fatigue. Eye: No recent visual problem, No blurring, No double vision. Ear/Nose/Mouth/Throat: No decreased hearing, No sore throat. Respiratory: No shortness of breath, No cough, No sputum production, No hemoptysis, No wheezing, No cyanosis. Cardiovascular: No chest pain, No palpitations, No tachycardia, No peripheral edema, No syncope. Gastrointestinal: No nausea, No vomiting, No diarrhea, No constipation, No heartburn, No hematemesis. Genitourinary: No dysuria, No hematuria. Hematology/Lymphatics: Bruising tendency, No bleeding tendency, No swollen lymph glands. Endocrine: No excessive thirst, No polyuria, No cold intolerance, No heat intolerance. Immunologic: Not immunocompromised, No recurrent fevers, No recurrent infections. Musculoskeletal: Back pain, Joint pain, No neck pain, No muscle pain, No claudication. Integumentary: No rash, No pruritus, No abrasions. Neurologic: Alert and oriented X4, No confusion. Psychiatric: No anxiety, No depression. Health Status Allergies (2) Active Reaction amoxicillin None Documented Mucinex None Documented Home Medications (10) Active amiodarone 200 mg [...] 40 mg = 1 Cap, Oral, Daily Allergies: Allergic Reactions (All) Severity Not Documented [...] before a meal, 30 Cap, 0 Refill(s), Medications (16) Active Scheduled: (11) #NaCl 0.9% *FLUSH* inj 10 mL 10 mL, IV Push, Q12H amiodarone 200 mg tab 200 mg 1 Tab, Oral, Daily aspirin 325 mg tab 325 mg 1 Tab, Oral, Daily atorvastatin 40 mg tab 40 mg 1 Tab, Oral, At Bedtime docusate sodium 100 mg cap 100 mg 1 Cap, Oral, BID enoxaparin 40 mg/0.4 mL inj 40 mg 0.4 mL, SubCutaneous, Daily famotidine 20 mg/2 mL inj 20 mg 2 mL, IV Push, BID insulin lispro 1 unit/0.01 mL inj Scale A:, SubCutaneous, AC and at Bedtime lisinopril 10 mg tab 10 mg 1 Tab, Oral, Daily metoprolol succinate XL 25 mg tab 25 mg 1 Tab, Oral, Daily tamsulosin CR 0.4 mg cap 0.4 mg 1 Cap, Oral, Daily Continuous: (1) NaCl 0.9% 1,000 mL 1,000 mL, IntraVENous, 75 mL/Hr PRN: (4) #NaCl 0.9% *FLUSH* inj 10 mL 10 mL, IV Push, See Comment acetaminophen 325 mg tab 650 mg 2 Tab, Oral, Q4H ondansetron 4 mg/2 mL inj 4 mg 2 mL, IV Push, Q4H polyethylene glycol 3350 pwd 17 g pkt 17 Gram 1 Packet, Oral, Daily Problem list: All Problems Impaired vision / SNOMED CT 46611711 / Confirmed Stented coronary artery / SNOMED CT 5913420720 / Confirmed Angina / SNOMED CT 371077655 / Confirmed Coronary artery disease / SNOMED CT 2055672458 / Confirmed Hyperlipidemia / SNOMED CT 76688486 / Confirmed Hypertension / SNOMED CT 13655552 / Confirmed Heart failure / SNOMED CT 240677353 / Confirmed Heart murmur / SNOMED CT 525351511 / Confirmed Enlarged prostate / SNOMED CT 641616401 / Confirmed GERD - Gastro-esophageal reflux disease / SNOMED CT 8091763858 / Confirmed Diabetes mellitus type II / SNOMED CT 69521943 / Confirmed Migraine / SNOMED CT 03807168 / Confirmed History of obstructive sleep apnea / IMO 90643243 / Confirmed, Active Problems (13) Angina Coronary artery disease Diabetes mellitus type II Enlarged prostate GERD - Gastro-esophageal reflux disease Heart failure Heart murmur History of obstructive sleep apnea Hyperlipidemia Hypertension Impaired vision Migraine Stented coronary artery Histories No education data available. Social & Psychosocial Habits Alcohol 01/20/2019 Alcohol [...] Days Yes Smokeless Tobacco Use History None Past Medical History: No active or resolved past medical history items have been selected or recorded. Family History: No family history items have been selected or recorded. Procedure history: cardiac catheterization. hernia repair. tonsillectomy. Cholecystectomy; (CPT4 80490). appendectomy. left arm surgery. coronary stents. Social History Social & Psychosocial Habits Alcohol 01/20/2019 Alcohol [...] Yes Smokeless Tobacco Use History None . Physical Examination VS/Measurements Vitals Signs (last 24 hrs) Last Charted Minimum Maximum Temp 98.3 (FEBRUARY 06 09:28) 98.3 (FEBRUARY 06 09:28) 98.7 (FEBRUARY 05 18:55) Apical HR 84 (FEBRUARY 06 12:27) 84 (FEBRUARY 06 12:27) 84 (FEBRUARY 06 12:27) Mon HR 84 (FEBRUARY 06 12:28) 66 (FEBRUARY 06 05:30) 86 (FEBRUARY 06 01:35) Periph HR 84 (FEBRUARY 05 18:55) 84 (FEBRUARY 05 18:55) 84 (FEBRUARY 05 18:55) Resp Rate 20 (FEBRUARY 06 09:28) 14 (FEBRUARY 05 20:00) H 24 (FEBRUARY 06 02:00) SBP H 176 (FEBRUARY 06 12:28) 108 (FEBRUARY 06 04:00) H 176 (FEBRUARY 06 12:28) DBP H 99 (FEBRUARY 06 12:28) L 59 (FEBRUARY 06 04:00) H 99 (FEBRUARY 06:) MAP 140 (FEBRUARY 06:) 78 (FEBRUARY 06 04:00) 140 (FEBRUARY 06 12:28) SpO2 99 (FEBRUARY 06 09:28) 94 (FEBRUARY 06 04:00) 99 (FEBRUARY 05 22:00) General: [Alert, oriented, well nourished, no acute distress]. Eye: [PERRL, normal conjunctiva]. HENT: [Normocephalic, normal hearing, moist oral mucosa, no scleral icterus, no sinus tenderness]. Neck: [Supple, non-tender, no carotid bruits, no JVD, no lymphadenopathy]. Lungs: [CTA-B, non-labored respiration]. Heart: [Normal rate, regular rhythm, systolic murmur, no gallop or rub.no edema. Abdomen: [Soft, non-tender, non-distended, normal bowel sounds, no masses]. Musculoskeletal: [Normal range of motion and strength, no tenderness or swelling]. Skin: [Warm, dry, pink, no rashes or lesions]. Neurologic: [Awake, alert, and oriented X3, CN II-XII intact].patient moves all the 4 limbs power 5 over 5 in all 4 limbs but it feels its weaker on the right side. Psychiatric: [Cooperative, appropriate mood and affect]. Review / Management FEBRUARY 05 21:52 137 105 16 / 97 4.6 23 0.90 \ FEBRUARY 05 21:52 \ 14.7 / H 11.4 325 / 42.8 \ Cardiac Markers (Current Encounter/Past 24 Hours) No Cardiac Marker Results Found (Past 24 Hours) Blood Gases (Current Encounter/Past 24 Hours) No Blood Gas Results Found (Past 24 Hours) Radiology Results (Last 48 hours) [id number] -- 02/05/2019 23:59 CT Head WO (02/05/2019 [...] approximately 50% stenosis of theproximal basilar artery. export freight specialist show mild stenosis proximally. IMPRESSION: 1. 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 Anterior circulation intact.3. Mild bilateral PUTTY PATCHER disease. This study was performed using dose [...] strip.2. No hemorrhage.3. Advanced chronic microvascular changes. Results review: Labs (Last four charted values) WBC H 11.4 (FEBRUARY 05) HB 14.7 (FEBRUARY 05) HCT 42.8 (FEBRUARY 05) Plt 325 (FEBRUARY 05) Na 137 (FEBRUARY 05) K 4.6 (FEBRUARY 05) Cl 105 (FEBRUARY 05) CO2 23 (FEBRUARY 05) BUN 16 (FEBRUARY 05) Cr 0.90 (FEBRUARY 05) Glu R 97 (FEBRUARY 05) Ca 9.4 (FEBRUARY 05) AST 15 (FEBRUARY 05) ALT 26 (FEBRUARY 05) ALK P 71 (FEBRUARY 05) T Bili 0.6 (FEBRUARY 05) PTN 7.5 (FEBRUARY 05) ALB 3.8 (FEBRUARY 05) Lipase 111 (FEBRUARY 05) Troponin <0.015 (FEBRUARY 05) . Impression and Plan MRI BRAIN 02/06/19 MPRESSION: 1. Small areas of infarct involving left frontal vertex cortex and white matter near the motor strip. 2. No hemorrhage. 3. Advanced chronic microvascular changes. 02/06/19 CTA Neck Aortic arch: Arch shows no significant narrowing. Great vessel origins are widely patent. Right carotid: Mild plaque disease is present. There is no significant stenosis. Left carotid: Moderate calcified plaque disease is seen at the carotid bifurcation extending into the right ICA origin. This causes stenosis up to 20-30%, not considered hemodynamically significant. Vertebrals: Left vertebral artery is dominant. No significant stenosis is present. IMPRESSION: No evidence of cervical carotid dissection or significant stenosis. IMPRESSION: Paroxysmal Atrial Fibrillation - history of: being on Amiodarone, BB, ASA Transient Ischemic Attack - CVA ruled out by radiologic studies. HTN DMT2 HLD PLAN: status post smallacute infarct on the MRI. Right-sided weakness. Neurology following. Patient on Plavix and Lipitor started. CTA neck was done no significant carotid stenosis. follow up Echo. Paroxysmal atrial fibrillation currently in sinus rhythm. On rhythm control patient has been on amiodarone for 2 years. Not on anticoagulation the indication of anticoagulation in the past. we'll start the patient on eliquis once cleared by neurology 2 start anticoagulation. history of cabg ??3 two years ago.no chest pain physically active. continue optimizing medical treatment. documented in this encounter Plan of Treatment Not on file documented as of this encounter Visit Diagnoses Not on filedocumented in this encounter Care Teams Timber Framer Helper Relationship Specialty Start Date End Date Marielos Amaral, KAYE [address] [place] [address] PCP - General Nurse Practitioner 08/18/23 documented as of this encounter
--- NOTE | 2025-05-14 20:36 | XR_ITS ---
PROCEDURE INFORMATION: Exam: XR Chest Exam date and time: 05/14/2025 8:56 PM Age: 74 years old Clinical indication: Other: High blood sugar, eval for infection TECHNIQUE: Imaging protocol: Radiologic exam of the chest. Views: 1 view. COMPARISON: CR XR CHEST PORTABLE 02/02/2025 4:37 AM FINDINGS: Lungs: Unremarkable. No consolidation. Pleural spaces: Unremarkable. No pleural effusion. No pneumothorax. Heart/Mediastinum: Mild cardiomegaly. Bones/joints: Sternotomy wires. IMPRESSION: No acute findings.
--- OUTSIDE RECORDS SUMMARY | 2025-05-14 20:36 | XMS_ITS | Encounter Summary ---
Author Organization [employer] ([place], [place], [place], [place]) Address [address] [place] [address] Care Team Providers Care Fur Drummer Name Role Phone AmaralMarlyMarielosgrace RESTREPO Primary Care Provider Encounter Details Date Type Department Care Team (Late st Contact Info) Description 10/15/2019 Transcribed Document [facility] Family Medicine [address] [place] [address] ProviderHaroldo MD [address] [place] [address] Social History Tobacco Use Types Packs/Day Years Used Date Smoking Tobacco: Never Assessed Sex and Gender Information Value Date Recorded Sex Assigned at Not on file Legal Sex Male 3:45 PM CDT Gender Identity Not on file Sexual Orientation Not on file documented as of this encounter Miscellaneous Notes * Cerner Conversion Note - Historical ProviderMD - 10/15/2019 8:30 AM CONTROLLER REPAIRER AND TESTER Attempt to Treat Entered On: 10/15/2019 8:38 EST Performed On: 10/15/2019 8:30 EST by JORDYN HART Attempt to Treat Unable to Treat Due To : Patient Unavailable Inability to Treat Comment : Getting a bedside ECHO JORDYN HART - 10/15/2019 8:34 EST Electronically signed by Brittany [facility] Conversion Management Scientist Cerner at 01/24/2023 10:39 AM CDT documented in this encounter Plan of Treatment Not on file documented as of this encounter Visit Diagnoses Not on filedocumented in this encounter Care Teams Fur Drummer Relationship Specialty Start Date End Date AmaralMarielos, TECHNICAL SOURCING RECRUITER [address] [place] [address] PCP - General Nurse Practitioner 08/18/23 documented as of this encounter
--- OUTSIDE RECORDS SUMMARY | 2025-05-14 20:36 | XMS_ITS | Encounter Summary ---
Author Organization [employer] ([place], [place], [place], [place]) Address [address] [place] [address] Care Team Providers Care Machine Operator Hop Worker Name Role Phone Marielos Amaral KAYE Primary Care Provider [phone] Encounter Details Date Type Department Care Team (Late st Contact Info) Description 04/24/2022 Transcribed Document [facility] Radiology [address] [place], [place] [id number] Saba Neal MD [address] [place] [address] [address] [place] [address] Social History Tobacco Use Types Packs/Day Years [...] Do you speak a language other than [place] at [facility]? Yes 10/30/2024 Do you [...] Conversion Note - Saba Neal MD - 04/24/2022 11:25 AM EDT Patient: DEION ANTOINE Age: 71 years Sex: Male : 1950 Associated Diagnoses: None Author: SABA NEAL MD-INT Subjective Patient was seen and examined today 04/24/2022. Alert oriented x3. Galvan catheter placed last night. Ambulate to the door and back. Discussed with his at the bedside Review of Systems Constitutional: Weakness, Fatigue, No [...] Other (See Comment) Eliquis: 2.5 mg, Oral, [id number] Normal Saline 1,000 mL: 100 mL/Hr, IntraVENous Rocephin: 1 Gram, 100 mL/Hr, IV Piggyback, [id number] Tylenol: 650 mg, Oral, Q4H, PRN: Pain [...] Q15Min, PRN: Other (See Comment) insulin glargine: 15 Units, SubCutaneous, Daily insulin [...] Oral, Daily, 180 Tab, 0 Refill(s), Medications (20) Active Scheduled: (10) amiodarone 200 mg tab 200 mg 1 Tab, Oral, Daily apixaban 2.5 mg tab 2.5 mg 1 Tab, Oral, [id number] atorvastatin 40 mg tab 40 mg 1 Tab, Oral, At Bedtime cefTRIAXone 1 Gram, IV Piggyback, [id number] cholecalciferol 1,000 unit tab 1,000 Units 1 Tab, Oral, Daily cyanocobalamin 1,000 mcg tab 1,000 mcg 1 Tab, Oral, Daily insulin glargine 1 unit/0.01 mL inj 15 Units 0.15 mL, SubCutaneous, Daily insulin lispro 1 unit/0.01 mL inj Scale A:, SubCutaneous, AC and at Bedtime levothyroxine 100 mcg tab 100 mcg 1 Tab, Oral, Daily pantoprazole EC 40 mg tab 40 mg 1 Tab, Oral, Daily Continuous: (1) NaCl 0.9% 1,000 [...] list: Medical Atrial fibrillation / SNOMED CT 59129372 / Confirmed CAD - Coronary artery disease / SNOMED CT 9233826881 / Confirmed Cardiomyopathy / SNOMED CT 811846795 / Confirmed Acute cerebrovascular accident (CVA) / SNOMED CT 015716534 / Confirmed History of obstructive sleep apnea / IMO [id number] / Confirmed HLD - Hyperlipidemia / SNOMED CT 876618541 / Confirmed HTN - Hypertension / SNOMED CT 9520849287 / Confirmed Type 2 diabetes mellitus / SNOMED CT 461513763 / Confirmed, Active Problems (20) Acute cerebrovascular [...] 24 hrs) Last Charted Minimum Maximum Temp 98 (APR 24 06:43) 97.8 (APR 23 16:36) 98.1 (APR 23:45) Apical HR 75 (APR 24 09:04) 75 (APR 24 09:04) 75 (APR 24 09:04) Mon HR 76 (APR 24 06:43) 68 (APR 23:30) 81 (APR 24:15) Resp Rate 18 (APR 24 06:43) 16 (APR 23:45) 18 (APR 23 14:28) SBP H 149 (APR 24 06:43) 106 (APR 23:30) H 149 (APR 24 06:43) DBP 76 (APR 24 06:43) L 47 (APR 23:30) 76 (APR 24 06:43) MAP 90 (APR 24 06:43) 57 (APR 23:30) 112 (APR 24:15) SpO2 94 (APR 24:15) 94 (APR 23:45) 98 (APR 23 14:28) General: Alert and oriented, No acute distress. [...] Appropriate mood & affect. Review / Management No qualifying data available Radiology Results (Last 48 hours) [id number] -- 04/22/2022 12:30 CT Head WO (04/22/2022 10:49) Result: HEAD [...] by Dr. Artem Mcdermott.Transcribed by Lisa Holliday (Ruthie).I have personally viewed, interpreted and dictated the [...] agree with the above final transcribed report. US Renal Comp (04/23/2022 11:40) Result: RENAL [...] from Previous Midnight to Current New Medications: cholecalciferol (Vitamin D3) 1,000 Units, Oral, Tab, Daily, Start 04/23/22 11:39:00 EDT SABA NEAL MD-INT cyanocobalamin 1,000 mcg, Oral, Tab, Daily, Routine, Start 04/23/22 12:02:00 EDT, 04/23/22 12:02:00 EDT SABA NEAL MD-INT insulin glargine 15 Units, SubCutaneous, Inj, Daily, Routine, Start 04/23/22 12:05:00 EDT, 04/23/22 12:05:00 EDT SAAB NEAL MD-INT Sodium Chloride 0.9% intravenous solution 1,000 mL (Normal Saline 1,000 mL) 1,000 mL, Bag Volume (mL) = 1,000, IntraVENous, Rate = 100 mL/Hr, start date 04/23/22 13:04:00 EDT, Routine, 2.03, m2 AKBAR, VIRGEN, MD Discontinued Medications: insulin glargine 5 Units, SubCutaneous, Inj, Daily, Routine, Start 04/22/22 14:09:00 EDT, 04/22/22 14:09:00 EDT SABA NEAL MD-INT sodium bicarbonate 150 mEq + Dextrose 5% in Water intravenous solution 1,000 mL (sodium bicarbonate injection 150 mEq + Dextrose 5% in Water intravenous solution 1,000 mL) 1,000 mL, Bag Volume (mL) = 1,150, IntraVENous, Rate = 75 mL/Hr, start date 04/22/22 13:35:00 EDT, Routine, 2.03, m2 PARAM WEBBER MD Impression and Plan Acute on chronic kidney failure with metabolic acidosis. -Renal vs prerenal -Continue IV fluid. - IV sodium bicarbonate drip discontinued. -renal ultrasound pending -Hold all nephrotoxic meds including Bumex, Aldactone and lisinopril -Follow electrolytes and renal function closely until to baseline. -Nephroloy following Urinary tract infection. Urinalysis noted. [...] filedocumented in this encounter Care Teams Machine Operator Hop Worker Relationship Specialty Start Date End Date Marielos Amaral, BEER RUNNER [address] [phone] PCP - General Nurse Practitioner 08/18/23 documented as of this encounter
--- OUTSIDE RECORDS SUMMARY | 2025-05-14 20:36 | XMS_ITS | Encounter Summary ---
Author Organization [employer] ([place], [place], [place], [place]) Address [address] [place] [address] Care Team Providers Care Server Support Technician Name Role Phone Marielos Amaral KAYE Primary Care Provider Encounter Details Date Type Department Care Team (Late st Contact Info) Description 10/15/2019 Transcribed Document [facility] Family Medicine [address] [place] [address] ProviderHaroldo MD [address] [place] [address] Social History Tobacco Use Types Packs/Day Years Used Date Smoking Tobacco: Never Assessed Sex and Gender Information Value Date Recorded Sex Assigned at Not on file Legal Sex Male 3:45 PM CDT Gender Identity Not on file Sexual Orientation Not on file documented as of this encounter Miscellaneous Notes * [employer]ner Conversion Note - Haroldo ProviderMD - 10/15/2019 8:58 AM SAUSAGE CUTTER ENGRAVING PRESS OPERATOR Attempt to Treat Entered On: 10/15/2019 8:58 EST Performed On: 10/15/2019 8:58 EST by BIPIN LEE SLP Attempt to Treat Unable to Treat Due To : Patient Unavailable Inability to Treat Comment : Patient is off unit for test, will follow up later in day. Notification : BIPIN HURLEY, RAMONA - 10/15/2019 8:58 EST Electronically signed by Brittany [facility] Conversion Industrial Property Appraiser Cerner at 01/24/2023 10:45 AM CDT documented in this encounter Plan of Treatment Not on file documented as of this encounter Visit Diagnoses Not on filedocumented in this encounter Care Teams Server Support Technician Relationship Specialty Start Date End Date Marielos Amaral, TANNING SOLUTION MAKER [address] [place] [address] PCP - General Nurse Practitioner 08/18/23 documented as of this encounter
--- OUTSIDE RECORDS SUMMARY | 2025-05-14 20:36 | XMS_ITS | Encounter Summary ---
Author Organization [employer] ([place], [place], [place], [place]) Address [address] [place] [address] Care Team Providers Care Slubber Operator Name Role Phone Marielos Amaral KAYE Primary Care Provider Encounter Details Date Type Department Care Team (Late st Contact Info) Description 10/16/2019 Transcribed Document [facility] [place] [address] [place] [address] ProviderHaroldo MD [address] [place] [address] Social History Tobacco Use Types Packs/Day Years Used Date Smoking Tobacco: Never Assessed Sex and Gender Information Value Date Recorded Sex Assigned at Not on file Legal Sex Male 3:45 PM CDT Gender Identity Not on file Sexual Orientation Not on file documented as of this encounter Miscellaneous Notes * [employer]ner Conversion Note - Haroldo ProviderMD - 10/16/2019 2:00 AM CURATOR OF MANUSCRIPTS Laborer Demolition Details Entered On: 10/16/2019 0:45 EST Performed On: 10/16/2019 2:00 EST by Vanessa Blake RN Order Details Transport Mode Order Detail : Wheelchair Isolation Precautions Order Detail : Standard Precautions Order Detail : N/A IV Order Detail : 1 Oxygen Order Detail : 0 Nurse Collect Order Detail : 1 Lift/Transfer : Independent Central Line Order Detail : No Room Service : Appropriate Arterial Line : No Vanessa Blake RN - 10/16/2019 0:45 EST Electronically signed by Brittany [facility] Conversion Nursing Director Cerner at 01/24/2023 10:21 AM CDT documented in this encounter Plan of Treatment Not on file documented as of this encounter Visit Diagnoses Not on filedocumented in this encounter Care Teams Slubber Operator Relationship Specialty Start Date End Date Marielos Amaral, KAYE [address] [phone] PCP - General Nurse Practitioner 08/18/23 documented as of this encounter
--- OUTSIDE RECORDS SUMMARY | 2025-05-14 20:36 | XMS_ITS | Encounter Summary ---
Author Organization [employer] ([place], [place], [place], [place]) Address [address] [place] [address] Care Team Providers Care Employment Counselor Name Role Phone AmaralMarielos roque KAYE Primary Care Provider [phone] Encounter Details Date Type Department Care Team (Late st Contact Info) Description 10/17/2019 Transcribed Document [facility] [place] Family Medicine [address] [place] [address] ProviderHaroldo MD [address] [place] [address] Social History Tobacco Use Types Packs/Day Years Used Date Smoking Tobacco: Never Assessed Sex and Gender Information Value Date Recorded Sex Assigned at Not on file Legal Sex Male 3:45 PM CDT Gender Identity Not on file Sexual Orientation Not on file documented as of this encounter Miscellaneous Notes * Cerner Conversion Note - Haroldo ProviderMD - 10/17/2019 12:17 PM POT RELINER Stroke/Warfarin Instructions Entered On: 10/17/2019 12:18 EST Performed On: 10/17/2019 12:17 EST by Deysi Valdes RN Stroke/Warfarin Instructions Stroke/TIA Discharge Ins : Open Warfarin Discharge Ins : Open Deysi Valdes RN - 10/17/2019 12:17 EST Stroke/TIA Discharge Instructions Individualized Stroke Risk Factors *Q : Atrial fibrillation, Coronary artery disease, Diabetes, Heart disease, Hypertension/High blood pressure, Previous stroke Stroke Education Handouts Given *Q : Yes Deysi Valdes RN - 10/17/2019 12:17 EST Stroke Education Materials Given-Grid Activation of EMS *Q : Verbalizes understanding Follow-up Care After Discharge *Q : Verbalizes understanding Medications prescribed at DC *Q : Verbalizes understanding Risk Factors for Stroke *Q : Verbalizes understanding Warning S&S of Stroke *Q : Verbalizes understanding Deysi Valdes RN - 10/17/2019 12:17 EST Stroke/TIA Signs/Symptoms to Report Immediately : Sudden onset difficulty speaking, Sudden onset difficulty understanding speech, Sudden onset change in vision, Sudden onset weakness particulary on one side of the body, Sudden onset numbness/tingling, Sudden severe headache, Sudden dizziness or trouble with gait, Call : EMS activation is crucial Blood Pressure Management: : I will ask my physician about my blood pressure goal Blood Pressure Management: (Cont) : I will not change or stop any meds w/o instruction from MD My LDL Level: : LDL Level Cholesterol LDL Calculation: 48 mg/dL (10/15/19 04:48:00) Cholesterol LDL Calculation: 54.6 mg/dL (10/14/19 20:26:00) Anticoagulant/Anti-Platelet/Medications: : I will not stop taking my meds unless instructed by Deysi Mendiola RN - 10/17/2019 12:17 EST Warfarin Discharge Instructions Last INR Result : INR: 1.0 (Normal), Reference Range: (0.9 - 1.1), 10/14/2019 16:06 PM DIAGNOSIS THERAPEUTIC RANGE a) Primary and secondary prevention of 2.0-3.0 venous thrombosis b) Active venous thrombosis, pulmonary 2.0-4.0 embolism and prevention of recurrent venous thrombosis c) Prevention of arterial thromboembolism 3.0-4.5 including patients with mechanical heart valves Notify Provider of Signs/Symptoms of : Significant bleeding, Clot Deysi Valdes RN - 10/17/2019 12:17 EST documented in this encounter Plan of Treatment Not on file documented as of this encounter Visit Diagnoses Not on filedocumented in this encounter Care Teams Employment Counselor Relationship Specialty Start Date End Date Marielos Amaral APRN [address] [address] PCP - General Nurse Practitioner 08/18/23 documented as of this encounter
--- OUTSIDE RECORDS SUMMARY | 2025-05-14 20:36 | XMS_ITS | Encounter Summary ---
Author Organization [employer] ([place], [place], [place], [place]) Address [address] [place] [address] Care Team Providers Care Yardage Control Operator Forming Name Role Phone Munir Marielos RESTREPO Primary Care Provider Encounter Details Date Type Department Care Team (Late st Contact Info) Description 04/24/2022 Transcribed Document [facility] [place] Family Medicine [address] [place] [address] ProviderHaroldo MD [address] [place] [address] Social History Tobacco Use Types [...] Do you speak a language other than Macedonian at [facility]? Yes 10/30/2024 Do you want help [...] Cerner Conversion Note - Historical Provider, - 04/24/2022 8:48 AM CDT Patient: ZACKARY ANTOINE Age: 71 [...] Other (See Comment) Eliquis: 2.5 mg, Oral, [id number] Flomax: 0.4 mg, Oral, Daily Metoprolol Succinate ER: 50 mg, Oral, Daily Normal Saline 1,000 mL: 100 mL/Hr, IntraVENous Rocephin: 1 Gram, 100 mL/Hr, IV Piggyback, [id number] Tylenol: 650 mg, Oral, Q4H, PRN: Pain [...] mg tab 2.5 mg 1 Tab, Oral, [id number] atorvastatin 40 mg tab 40 mg 1 Tab, Oral, At Bedtime cefTRIAXone 1 Gram, IV Piggyback, [id number] cholecalciferol 1,000 unit tab 1,000 Units 1 [...] list: Medical Atrial fibrillation / SNOMED CT 64678250 / Confirmed CAD - Coronary artery disease / SNOMED CT 9386430560 / Confirmed Cardiomyopathy / SNOMED CT 685107611 / Confirmed Acute cerebrovascular accident (CVA) / SNOMED CT 326434759 / Confirmed History of obstructive sleep apnea / IMO 53650399 / Confirmed HLD - Hyperlipidemia / SNOMED CT 756343615 / Confirmed HTN - Hypertension / SNOMED CT 4515353031 / Confirmed Type 2 diabetes mellitus / SNOMED CT 777484962 / Confirmed, Active Problems (20) Acute cerebrovascular [...] Charted Minimum Maximum Temp 98 (APR 24 10:06) 97.8 (APR 23 16:36) 98.1 (APR 23:45) Apical HR 75 (APR 24 12:44) 75 (APR 24 09:04) 75 (APR 24 09:04) Mon HR 75 (APR 24 10:06) 68 (APR 23:30) 81 (APR 24:15) Resp Rate 18 (APR 24 10:06) 16 (APR 23:45) 18 (APR 23 14:28) SBP H 148 (APR 24 10:06) 106 (APR 23:30) H 149 (APR 24 06:43) DBP 68 (APR 24 10:06) L 47 (APR 23:30) 76 (APR 24 06:43) MAP 91 (APR 24 10:06) 57 (APR 23:30) 112 (APR 24:15) SpO2 94 (APR 24:15) 94 (APR 23 21:45) 98 (APR 23 14:28) General: Alert and oriented, No acute distress. Eye: Extraocular movements are intact, Normal conjunctiva. HENT: Normocephalic, Normal hearing. Neck: Supple, No jugular venous distention, No thyromegaly. Respiratory: Lungs are clear to auscultation, Respirations are non-labored, Symmetrical chest wall expansion. Cardiovascular: Normal rate, No edema. Gastrointestinal: Soft, Non-tender, Non-distended. Integumentary: Warm, Dry, [place]man. Neurologic: Alert, Oriented, No focal deficits. Psychiatric: Cooperative, Appropriate mood & affect. Review / Management Results review: Labs (Last four charted values) WBC 5.2 (APR 23) 5.1 (APR 23) 7.6 (APR 22) HB L 9.6 (APR 23) L 9.6 (APR 23) L 10.3 (APR 22) HCT L 28.0 (APR 23) L 27.9 (APR 23) L 30.2 (APR 22) Plt 239 (APR 23) 230 (APR 23) 246 (APR 22) Na L 134 (APR 24) L 129 (APR 23) L 130 (APR 22) L 128 (APR 22) K 5.1 (APR 24) 4.4 (APR 23) 4.7 (APR 22) 4.7 (APR 22) Cl 104 (APR 24) L 98 (APR 23) 102 (APR 22) L 100 (APR 22) CO2 23 (APR 24) 21 (APR 23) L 19 (APR 22) L 16 (APR 22) BUN H 72 (APR 24) C 91 (APR 23) C 97 (APR 22) C 95 (APR 22) Cr H 4.70 (APR 24) H 7.40 (APR 23) H 7.80 (APR 22) H 7.70 (APR 22) Glu R H 203 (APR 24) H 244 (APR 23) H 160 (APR 22) H 262 (APR 22) Ca 9.0 (APR 24) 8.4 (APR 23) 8.5 (APR 22) 8.4 (APR 22) AST 28 (APR 22) ALT 56 (APR 22) ALK P 82 (APR 22) T Bili 0.6 (APR 22) PTN 7.3 (APR 22) ALB L 3.0 (APR 24) 3.4 (APR 22) . APR 24 10:11 L 134 104 H 72 / H 203 5.1 23 H 4.70 \ FINDINGS: Limited images of the liver [...] weakness. Plan: - Continue with IV hydration. UOP excellent. - Albumin infusion - Hold lisinopril, Diuretics and Aldactone for now. - Monitor I/O strictly - Avoid nephrotoxic agents. - renal diet. - No emergent need of SPORTS BETTING MANAGER. Will follow. documented in this encounter Plan of Treatment Not on file documented as of this encounter Visit Diagnoses Not on filedocumented in this encounter Care Teams Yardage Control Operator Forming Relationship Specialty Start Date End Date Marielos Amaral, MANAGER TRANSPLANT [address] [address] PCP - General Nurse Practitioner 08/18/23 documented as of this encounter
--- OUTSIDE RECORDS SUMMARY | 2025-05-14 20:36 | XMS_ITS | Encounter Summary ---
Author Organization [employer] ([place], [place], [place], [place]) Address [address] [place] [address] Care Team Providers Care Willow Machine Operator Name Role Phone Marielos Amaral KAYE Primary Care Provider Encounter Details Date Type Department Care Team (Late st Contact Info) Description 10/15/2019 Transcribed Document [facility] [place] Family Medicine [address] [place] [address] ProviderHaroldo MD [address] [place] [address] Social History Tobacco Use Types Packs/Day Years Used Date Smoking Tobacco: Never Assessed Sex and Gender Information Value Date Recorded Sex Assigned at Not on file Legal Sex Male 3:45 PM CDT Gender Identity Not on file Sexual Orientation Not on file documented as of this encounter Miscellaneous Notes * Cerner Conversion Note - Haroldo ProviderMD - 10/15/2019 3:31 PM SHADER AND TONER Final Discharge Planning Entered On: 10/15/2019 15:31 EST Performed On: 10/15/2019 15:31 EST by HARITHA BARRIOS Rn-Fluoroscope Operator Final Discharge Planning Discharge Arrangements : Patient Post-Acute Information Patient Name: ZACKARY ANTOINE Gender: Male : [birth year] Age: 68 Years No Post-Acute Placement(s) Listed No Post-Acute Service(s) Listed No [place] Referral(s) Listed Important Medicare Message Reviewed With : Patient Important Medicare Message Reviewed D/T : 10/15/2019 15:20 EST HARITHA BARRIOS, Rn-Fluoroscope Operator - 10/15/2019 15:31 EST Electronically signed by Brittany [facility] Conversion Hearing Aid Repairer Cerner at 01/24/2023 10:37 AM CDT documented in this encounter Plan of Treatment Not on file documented as of this encounter Visit Diagnoses Not on filedocumented in this encounter Care Teams Willow Machine Operator Relationship Specialty Start Date End Date Marielos Amaral, OAK TANNER [address] [place] [address] PCP - General Nurse Practitioner 08/18/23 documented as of this encounter
--- OUTSIDE RECORDS SUMMARY | 2025-05-14 20:36 | XMS_ITS | Encounter Summary ---
Author Organization [employer] ([place], [place], [place], [place]) Address [address] [place] [address] Care Team Providers Care Camp Dining Room Attendant Name Role Phone Marielos Amaral KAYE Primary Care Provider Encounter Details Date Type Department Care Team (Late st Contact Info) Description 10/15/2019 Transcribed Document [facility] [place] [address] [place] [address] ProviderHaroldo MD [address] [place] [address] Social History Tobacco Use Types Packs/Day Years Used Date Smoking Tobacco: Never Assessed Sex and Gender Information Value Date Recorded Sex Assigned at Not on file Legal Sex Male 3:45 PM CDT Gender Identity Not on file Sexual Orientation Not on file documented as of this encounter Miscellaneous Notes * Cerner Conversion Note - Haroldo ProviderMD - 10/15/2019 8:57 AM PAGINATOR UM Authorization Entered On: 10/15/2019 8:57 EST Performed On: 10/15/2019 8:57 EST by Mary Haynes Rn-Utilization Review Primary Insurance Authorization Authorization and Policy Numbers : Insurance 1 Health Plan: [employer] Policy Number: [id number] Authorization Number: Insurance Primary Name : [employer] Policy Number: [id number] Authorization Status-Primary : Awaiting callback Reference Number-Primary : [id number] Authorized Service Begin Date-Primary : 10/14/2019 EST Authorization Comments-Primary : ref# per star notes Historical Authorization Comments-Primary : Comment 1: clinical faxed per [facility] for ip auth (Mary Haynes, Rn-Utilization Review 10/15/2019 08:55) Mary Haynes, Rn-Utilization Review - 10/15/2019 8:57 EST Electronically signed by [facility] Conversion Project Manager Industrial Cerner at 01/24/2023 10:43 AM CDT documented in this encounter Plan of Treatment Not on file documented as of this encounter Visit Diagnoses Not on filedocumented in this encounter Care Teams Camp Dining Room Attendant Relationship Specialty Start Date End Date Marielos Amaral, MOTEL MAID [address] [place] [address] PCP - General Nurse Practitioner 08/18/23 documented as of this encounter
--- OUTSIDE RECORDS SUMMARY | 2025-05-14 20:36 | XMS_ITS | Encounter Summary ---
Author Organization [employer] ([place], [place], [place], [place]) Address [address] [place] [address] Care Team Providers Care Art History Instructor Name Role Phone Marielos Amaral KAYE Primary Care Provider Encounter Details Date Type Department Care Team (Late st Contact Info) Description 10/15/2019 Transcribed Document [facility] [place] [address] [place] [address] ProviderHaroldo MD [address] [place] [address] Social History Tobacco Use Types Packs/Day Years Used Date Smoking Tobacco: Never Assessed Sex and Gender Information Value Date Recorded Sex Assigned at Not on file Legal Sex Male 3:45 PM CDT Gender Identity Not on file Sexual Orientation Not on file documented as of this encounter Miscellaneous Notes * Cerner Conversion Note - Haroldo ProviderMD - 10/15/2019 9:32 AM KNOT PICKER CLOTH Patient: ZACKARY ANTOINE Age: 68 years Sex: Male : 1950 Associated Diagnoses: None Author: TYSHAWN BRANDT MD-SIN Subjective Pt is doing better this AM; still feels right leg is heavier than usual but weakness is improving Objective VS/Measurements Vital Signs/Vital Measures 10/15/2019 8:30 EST Systolic Blood Pressure 141 mmHg HI Diastolic Blood Pressure 74 mmHg Heart Rate Monitored 74 bpm 10/15/2019 8:00 EST Temperature, Fahrenheit 98.2 Deg F General: awake and alert, in no distress; speech is fluent with no dysarthria. Eye: Pupils are equal, round and reactive to light, Extraocular movements are intact. Respiratory: Respirations are non-labored. Cardiovascular: Normal rate, Regular rhythm. Neurologic: CN grossly intact; 5/5 strength in BUE, very slight weakness in right leg as compared to left but suspect this is very close to baseline. Decreased sensation in right leg as compared to left. Gait not yet assessed. Psychiatric: Cooperative, Appropriate mood & affect. Results Review MRI brain (my review)- chronic microvascular changes with no acute ischemia noted; radiologic interpretation pending CTA head/neck/chest and perfusion scan- all unremarkable for any acute findings Labs reviewed; Cr 1.3 today. Total cholesterol 114, LDL 48 TSH 18 (no known thyroid issues) Echo pending Impression and Plan 68yo M with h/o afib, prior stroke, CAD, HTN, HL, DM admitted initially with chest pain; while being evaluated in ED he developed acute right leg weakness and numbness and code stroke was called. He did receive tPA after aortic dissection was ruled out by CTA; he had been off his Eliquis since last week after running out of medication. Symptoms are improved today and I suspect he is near his baseline which does include some right leg weakness from old stroke; MRI brain does not show any new ischemia from my review, will f/u radiologic interpretation. Plan for repeat CT head this evening 24hrs after tPA, if unremarkable will restart Eliquis 5mg bid tonight. Continue other home medications; will check TSH/T4 tomorrow AM, he may need treatment for hypothyroidism. PT/OT evaluations today; possibly could discharge home over the weekend if he continues to do well. Neurology will follow. documented in this encounter Plan of Treatment Not on file documented as of this encounter Visit Diagnoses Not on filedocumented in this encounter Care Teams Art History Instructor Relationship Specialty Start Date End Date Marielos Amaral APRN [address] [address] PCP - General Nurse Practitioner 08/18/23 documented as of this encounter
--- OUTSIDE RECORDS SUMMARY | 2025-05-14 20:36 | XMS_ITS | Encounter Summary ---
Author Organization [employer] ([place], [place], [place], [place]) Address [address] [place] [address] Care Team Providers Care Motor Vehicle License Clerk Name Role Phone Marielos Amaral RANGE FEEDER Primary Care Provider Encounter Details Date Type Department Care Team (Late st Contact Info) Description 10/16/2019 Transcribed Document [facility] [place] [address] [place] [address] ProviderHaroldo MD [address] [place] [address] Social History Tobacco Use Types Packs/Day Years Used Date Smoking Tobacco: Never Assessed Sex and Gender Information Value Date Recorded Sex Assigned at Not on file Legal Sex Male 3:45 PM CDT Gender Identity Not on file Sexual Orientation Not on file documented as of this encounter Miscellaneous Notes * Cerner Conversion Note - Haroldo ProviderMD - 10/16/2019 3:33 PM BOX TENDER Patient: ZACKARY ANTOINE Age: 68 years Sex: Male : 1950 Associated Diagnoses: None Author: MAGED FORD MD-INT Subjective A 68-year-old male presenting with left-sided chest pain in parasternal region in the form of heaviness starting about 2 weeks ago, increasingly worse. No specific relieving or precipitating factors. He continues to smoke a pack a day. but he developed right leg weakness and tingling. He said the tingling is new, but there was some weakness on the right side from previous stroke and worse and s/p tpa saw him today in am and d/w nurse he has no chest pain now, right leg weakness also better mild anxiety , ct of head no bleeding, walk better he also found hypothyroid ROS: no fever, had cp, no sob, has anxiety Health Status Allergies: Allergic Reactions (Selected) Severity Not Documented Amoxicillin- No reactions were documented. Mucinex- No reactions were documented., Allergies (2) Active Reaction amoxicillin None Documented Mucinex None Documented Current medications: (Selected) Inpatient Medications Ordered Colace: 100 mg, Oral, BID DuoNeb 0.5 mg-2.5 mg/3 mL inhalation solution: 3 mL, Nebulized Inhalation, RT_Q6H, PRN: Shortness of Breath Eliquis: 5 mg, Oral, [id number] Flomax: 0.4 mg, Oral, Daily Metoprolol Succinate [...] 5 mg oral tablet: 1 Tab, Oral, B99BTdw, 60 Tab, 0 Refill(s) Toprol-XL 25 mg [...] tablet 5 mg = 1 Tab, Oral, S17WLwi Eliquis 5 mg oral tablet 5 mg [...] mg tab 5 mg 1 Tab, Oral, [id number] atorvastatin 40 mg tab 40 mg 1 [...] History of obstructive sleep apnea / IMO [id number] / Confirmed, Active Problems (13) Angina Coronary artery disease Diabetes mellitus type II Enlarged prostate GERD - Gastro-esophageal reflux disease Heart failure Heart murmur History of obstructive sleep apnea Hyperlipidemia Hypertension Impaired vision Migraine Stented coronary artery Objective VS/Measurements Vitals Signs (last 24 hrs) Last Charted Minimum Maximum Temp 98.4 (OCT 16 08:00) 97.7 (OCT 15 20:00) 98.5 (OCT 16 00:00) Apical HR 74 (OCT 16 09:05) 74 (OCT 16 09:05) 74 (OCT 16 09:05) Mon HR 68 (OCT 16 15:00) 60 (OCT 16 03:00) 104 (OCT 15 17:00) Resp Rate 20 (OCT 16:00) L 9 (OCT 16 02:00) H 47 (OCT 16 13:00) SBP H 157 (OCT 16:00) 135 (OCT 16 06:00) H 168 (OCT 16 05:00) DBP 77 (OCT 16:) 65 (OCT 15 23:00) H 93 (OCT 16 08:00) MAP 110 (OCT 16:00) 93 (OCT 15 23:00) 120 (OCT 16 08:00) SpO2 98 (OCT 16:) L 92 (OCT 16 02:00) 98 (OCT 15:00) General: Alert and oriented, No acute distress. [...] (OCT 14) Radiology Results (Last 48 hours) [id number] -- 10/14/2019 17:19 CT Head WO Code Stroke (10/14/2019 16:14) [...] reconstruction. This study was performed with techniques winniep radiation doses as low as reasonably achievable, [...] of these findings at the time ofdictation. MRI Brain WO (10/15/2019 09:30) Result: MRI [...] agree with the above final transcribed report. Diagnosis / problem 1. Possible ischemic stroke with right-sided weakness - s/p tPA. 2. Chest pain on admit 3. Hypertension. 4. Dyslipidemia. 5. Diabetes. 6. Benign prostatic hyperplasia. 7. Tobacco dependence. 8. Possible chronic kidney disease. 9. h/o CAD CABG and stent 10. h/o CVA 11. h/o a-fib 12. new diagnosis- hypothyroid Plan: 1. see above medication list for treatment. 2. start synthroid 100 ug 3. pt/ot 4. f/u neurology 5. cardiology consult also, resume amiodarone also 6. PT/OT, start eliquis 7. d/w pat and nurse, transfer to tele documented in this encounter Plan of Treatment Not on file documented as of this encounter Visit Diagnoses Not on filedocumented in this encounter Care Teams Motor Vehicle License Clerk Relationship Specialty Start Date End Date Marielos Amaral, RANGE FEEDER [address] [place] [address] PCP - General Nurse Practitioner 08/18/23 documented as of this encounter
--- OUTSIDE RECORDS SUMMARY | 2025-05-14 20:36 | XMS_ITS | Encounter Summary ---
Author Organization [employer] ([place], [place], [place], [place]) Address [address] [place] [address] Care Team Providers Care Pot Annealer Name Role Phone Marielos Amaral KAYE Primary Care Provider Encounter Details Date Type Department Care Team (Late st Contact Info) Description 10/16/2019 Transcribed Document [facility] [place] Family Medicine [address] [place] [address] ProviderHaroldo MD [address] [place] [address] Social History Tobacco Use Types Packs/Day Years Used Date Smoking Tobacco: Never Assessed Sex and Gender Information Value Date Recorded Sex Assigned at Not on file Legal Sex Male 3:45 PM CDT Gender Identity Not on file Sexual Orientation Not on file documented as of this encounter Miscellaneous Notes * Cerner Conversion Note - Haroldo ProviderMD - 10/16/2019 5:00 AM DIRECTOR ORGANIZATIONAL Chart Check - Review Order Profile Entered On: 10/16/2019 5:38 EST Performed On: 10/16/2019 5:00 EST by Vanessa Blake RN Chart Check Power[employer]ans Initiated/Discontinued as Appropriate : Yes All Active Orders Reviewed : Yes Vanessa Blake RN - 10/16/2019 5:38 EST Electronically signed by Brittany [facility] Conversion Business Office Technician Cerner at 01/24/2023 10:29 AM CDT documented in this encounter Plan of Treatment Not on file documented as of this encounter Visit Diagnoses Not on filedocumented in this encounter Care Teams Pot Annealer Relationship Specialty Start Date End Date Marielos Amaral, DIGITAL MEDIA BUYER [address] [place] [address] PCP - General Nurse Practitioner 08/18/23 documented as of this encounter
--- OUTSIDE RECORDS SUMMARY | 2025-05-14 20:36 | XMS_ITS | Encounter Summary ---
Author Organization [employer] ([place], [place], [place], [place]) Address [address] [place] [address] Care Team Providers Care Clearing Supervisor Name Role Phone Munir Marielos RESTREPO Primary Care Provider Encounter Details Date Type Department Care Team (Late st Contact Info) Description 04/24/2022 Transcribed Document [facility] [place] [address] [place] [address] ProviderHaroldo MD [address] [place] [address] Social History Tobacco Use Types [...] Do you speak a language other than Swazi at [facility]? Yes 10/30/2024 Do [...] Conversion Note - Historical Provider, - 04/24/2022 1:02 PM CDT Attempt to Treat, PT Entered On: 04/24/2022 13:02 EDT Performed On: 04/24/2022 13:02 EDT by CONNOR ROSE, PT Attempt to Treat Unable to Treat Due To : Patient Unavailable Inability to Treat Comment : PT/OT initiated evaluation but were interrupted by person from benefits office - will return later in pm if time allows. CONNOR ROSE, PT - 04/24/2022 13:02 EDT Electronically signed by Brittany [facility] Conversion Director Of Technology Cerner at 01/24/2023 10:35 AM CDT documented in this encounter Plan of Treatment Not on file documented as of this encounter Visit Diagnoses Not on filedocumented in this encounter Care Teams Clearing Supervisor Relationship Specialty Start Date End Date Marielos Amaral, EDGE BURNISHER [address] [place] [address] PCP - General Nurse Practitioner 08/18/23 documented as of this encounter
--- OUTSIDE RECORDS SUMMARY | 2025-05-14 20:36 | XMS_ITS | Encounter Summary ---
Author Organization [employer] ([place], [place], [place], [place]) Address [address] [place] [address] Care Team Providers Care Tension Machine Operator Name Role Phone AmaralMraielos roque KAYE Primary Care Provider Encounter Details Date Type Department Care Team (Late st Contact Info) Description 10/16/2019 Transcribed Document [facility] [address] [place] [address] ProviderHaroldo MD [address] [place] [address] Social History Tobacco Use Types Packs/Day Years Used Date Smoking Tobacco: Never Assessed Sex and Gender Information Value Date Recorded Sex Assigned at Not on file Legal Sex Male 3:45 PM CDT Gender Identity Not on file Sexual Orientation Not on file documented as of this encounter Miscellaneous Notes * Cerner Conversion Note - Haroldo Warren MD - 10/16/2019 12:58 PM PEDIATRIC NEUROPSYCHOLOGIST Discharge Instructions Entered On: 10/16/2019 12:59 EST Performed On: 10/16/2019 12:58 EST by ZACKARY CLEMENT MD-NEU DC Instructions HWD Stroke/TIA Discharge Ins : Open Heart Failure Discharge Ins : Open Warfarin Discharge Ins : Open Activity After Discharge : As tolerated Deysi Valdes, RN - 10/17/2019 13:36 EST Driving After Discharge : Do not drive, Other: No driving or operating heavy machinery until released by a physician. ZACKARY CLEMENT MD-NEU - 10/16/2019 12:58 EST Heart Failure Discharge Instructions Daily Weight : Weigh yourself daily at the same time and record, Contact doctor if you gain 3 pounds overnight or 5 pounds in 1 week, Take weight log to doctor visits Heart Failure Activity : It is important to keep as active as you can and pace yourself with rest periods Smoking /Tobacco Use : Do not smoke, Smoking cessation phone number When to Call the Doctor : Increased weight of 3 pounds or more in 1 day or 5 pounds in 1 week, Increased cough, extreme tiredness, Increased shortness of breath, Having to prop yourself up in bed with pillows to breathe easier, Chest pain, Feeling bloated, full or nauseated or a decrease in appetite, New or increased swelling in ankles, lower legs or belly, Dizziness, like you might pass out Deysi Valdes RN - 10/17/2019 13:36 EST Stroke/TIA Discharge Instructions Individualized Stroke Risk Factors *Q : Atrial fibrillation, Coronary artery disease, Diabetes, Heart disease, Hypertension/High blood pressure, Previous stroke Stroke Education Handouts Given *Q : Yes Deysi Valdes RN - 10/17/2019 13:36 EST Stroke Education Materials Given-Grid Activation of EMS *Q : Verbalizes understanding Follow-up Care After Discharge *Q : Verbalizes understanding Medications prescribed at DC *Q : Verbalizes understanding Risk Factors for Stroke *Q : Verbalizes understanding Warning S&S of Stroke *Q : Verbalizes understanding Deysi Valdes RN - 10/17/2019 13:36 EST Stroke/TIA Signs/Symptoms to Report Immediately : [...] Cholesterol LDL Calculation: 54.6 mg/dL (10/14/19 20:26:00) Reduce Cholesterol/Diet: : I will take cholesterol reducing medications as prescribed Anticoagulant/Anti-Platelet/Medications: : I will keep a current list of my meds with me and at home Increase Activity/Exercise/Weight Loss: : I will exercise regularly Sugar Control for Diabetics/Sleep Apnea : I will record my blood sugar and bring log to MD appts Sugar control for diabetics/SA (cont) : I will take insulin/diabetic meds as prescribed Deysi Valdes RN - 10/17/2019 13:36 EST Warfarin Discharge Instructions Indication for Warfarin Anticoagulation : Atrial fibrillation, Ischemic stroke Last INR Result : INR: 1.0 (Normal), [...] bleeding, Clot Deysi Valdes RN - 10/17/2019 13:36 EST documented in this encounter Plan of Treatment Not on file documented as of this encounter Visit Diagnoses Not on filedocumented in this encounter Care Teams Tension Machine Operator Relationship Specialty Start Date End Date Marielos Amaral APRN [address] [address] PCP - General Nurse Practitioner 08/18/23 documented as of this encounter
--- OUTSIDE RECORDS SUMMARY | 2025-05-14 20:36 | XMS_ITS | Encounter Summary ---
Author Organization [employer] ([place], [place], [place], [place]) Address [address] [place] [address] Care Team Providers Care Compliance Consultant Name Role Phone Marielos Amaral KAYE Primary Care Provider Encounter Details Date Type Department Care Team (Late st Contact Info) Description 10/15/2019 Transcribed Document [facility] [place] [address] [place] [address] ProviderHaroldo MD [address] [place] [address] Social History Tobacco Use Types Packs/Day Years Used Date Smoking Tobacco: Never Assessed Sex and Gender Information Value Date Recorded Sex Assigned at Not on file Legal Sex Male 3:45 PM CDT Gender Identity Not on file Sexual Orientation Not on file documented as of this encounter Miscellaneous Notes * Cerjude Conversion Note - Haroldo ProviderMD - 10/15/2019 5:00 PM CLIN APPLICATION SPECIALIST Chart Check - Review Order Profile Entered On: 10/15/2019 16:17 EST Performed On: 10/15/2019 17:00 EST by Deysi Valdes RN Chart Check Powerplans Initiated/Discontinued as Appropriate : Yes All Active Orders Reviewed : Yes Deysi Valdes RN - 10/15/2019 16:17 EST Electronically signed by Brittany [facility] Conversion Psychologist Social Cerner at 01/24/2023 10:39 AM CDT documented in this encounter Plan of Treatment Not on file documented as of this encounter Visit Diagnoses Not on filedocumented in this encounter Care Teams Compliance Consultant Relationship Specialty Start Date End Date Marielos Amaral, HOT BOX SPOTTER [address] [place] [address] PCP - General Nurse Practitioner 08/18/23 documented as of this encounter
--- OUTSIDE RECORDS SUMMARY | 2025-05-14 20:36 | XMS_ITS | Encounter Summary ---
Author Organization [employer] ([place], [place], [place], [place]) Address [address] [place] [address] Care Team Providers Care Casing Splitter Name Role Phone Marielos Amaral APRN Primary Care Provider Encounter Details Date Type Department Care Team (Late st Contact Info) Description 10/16/2019 Transcribed Document [facility] Radiology [address] [place] [id number] Camilo Steven MD [address] [place] [address] Social History Tobacco Use Types Packs/Day Years Used Date Smoking Tobacco: Never Assessed Sex and Gender Information Value Date Recorded Sex Assigned at Not on file Legal Sex Male 3:45 PM CDT Gender Identity Not on file Sexual Orientation Not on file documented as of this encounter Miscellaneous Notes * Cerner Conversion Note - Camilo Steven MD - 10/16/2019 8:33 AM EST Patient: ZACKARY ANTOINE Age: 68 years Sex: Male : 1950 Associated Diagnoses: None Author: CAMILO STEVEN MD-CAR Subjective NAD patient seen and examined at the bedside. Awake alert oriented ??3 not dyspneic not in pain. No events overnight. In sinus rhythm over the telemetry. Blood pressure controlled. No residual weakness. Discussed with him the results of his 2-D echo which His troponin multiple sets were negative. Plan for stress test as outpatient from the cardiology standpoint. Patient agreed to the management plan. Health Status Problem list: Active Problems (13) Angina Coronary artery disease Diabetes mellitus type II Enlarged prostate GERD - Gastro-esophageal reflux disease Heart failure Heart murmur History of obstructive sleep apnea Hyperlipidemia Hypertension Impaired vision Migraine Stented coronary artery Objective VS/Measurements Measurements from flowsheet : Measurements 10/15/2019 5:58 EST Height/Length, YEMENI (ft) 5 ft Height/Length YEMENI 9 Inch Routine Weight, Kilograms 87.5 kg Body Mass Index (BMI), Routine 28.49 kg/m2 Body Surface Area (BSA), Routine 2.03 m2 , Vitals Signs (last 24 hrs) Last Charted Minimum Maximum Temp 98.5 (OCT 16 00:00) 97.7 (OCT 15 20:00) 98.2 (OCT 15 08:00) Apical HR 75 (OCT 15 07:55) 75 (OCT 15 07:55) 77 (OCT 15 07:55) Mon HR 63 (OCT 16 06:00) 60 (OCT 16 03:00) 104 (OCT 15 17:00) Resp Rate 18 (OCT 16 06:00) L 9 (OCT 16 02:00) H 31 (OCT 15 14:00) SBP 135 (OCT 16 06:00) 117 (OCT 15 12:00) H 168 (OCT 15 09:30) DBP 66 (OCT 16 06:00) 60 (OCT 15 12:30) 84 (OCT 15 16:00) MAP 94 (OCT 16 06:00) 84 (OCT 15 12:00) 115 (OCT 15 09:30) SpO2 94 (OCT 16 06:00) L 92 (OCT 16 02:00) 100 (OCT 15 11:) General: Alert and oriented, No acute distress. [...] Normal strength, No deformity. Integumentary: Warm, Dry, [place], No rash. Neurologic: Alert, Oriented, No focal deficits. Psychiatric: Cooperative, Appropriate mood & affect. Results Review OCT 16 04:19 138 109 15 / H 134 3.8 24 1.30 \ Cardiac Markers (Current Encounter/Past 24 Hours) CK MB 1.20 ng/mL 10/15/2019 16:28 CK 101 Units/Liter 10/15/2019 04:57 Radiology Results (Last 48 hours) [id number] -- 10/14/2019 17:19 CR Chest 1 Vw [...] No change and no acute intracranial abnormality. ECHO with Bubble Study 10/15/2019: Impression: Negative [...] Renal Insufficiency SCr 1.30 on admission PLAN: 10/16/2019 status post chest pain. Cardiac enzymes [...] on filedocumented in this encounter Care Teams Casing Splitter Relationship Specialty Start Date End Date Marielos Amaral, KAYE [address] [place] [address] PCP - General Nurse Practitioner 11/13/23 documented as of this encounter
--- OUTSIDE RECORDS SUMMARY | 2025-05-14 20:36 | XMS_ITS | Encounter Summary ---
Author Organization [employer] ([place], [place], [place], [place]) Address [address] [place] [address] Care Team Providers Care Overnight Stocker Name Role Phone Marielos Amaral KAYE Primary Care Provider Encounter Details Date Type Department Care Team (Late st Contact Info) Description 10/15/2019 Transcribed Document [facility] [place] [address] [place] [address] ProviderHaroldo MD [address] [place] [address] Social History Tobacco Use Types Packs/Day Years Used Date Smoking Tobacco: Never Assessed Sex and Gender Information Value Date Recorded Sex Assigned at Not on file Legal Sex Male 3:45 PM CDT Gender Identity Not on file Sexual Orientation Not on file documented as of this encounter Miscellaneous Notes * Cerner Conversion Note - Haroldo ProviderMD - 10/15/2019 8:55 AM ELECTRICAL LINEMAN UM Authorization Entered On: 10/15/2019 8:56 EST Performed On: 10/15/2019 8:55 EST by Mary Haynes Rn-Utilization Review Primary Insurance Authorization Authorization and Policy Numbers : Insurance 1 Health Plan: [employer] Policy Number: [id number] Authorization Number: Insurance Primary Name : [employer] Policy Number: [id number] Authorization Status-Primary : Awaiting callback Reference Number-Primary : [id number] Authorized Service Begin Date-Primary : 10/14/2019 EST Authorization Comments-Primary : clinical faxed per norma for ip auth Historical Authorization Comments-Primary : No Authorization Comments Found Mary Haynes Rn-Utilization Review - 10/15/2019 8:55 EST documented in this encounter Plan of Treatment Not on file documented as of this encounter Visit Diagnoses Not on filedocumented in this encounter Care Teams Overnight Stocker Relationship Specialty Start Date End Date Marielos Amaral, WASTEWATER TREATMENT ENGINEER [address] [place] [address] PCP - General Nurse Practitioner 08/18/23 documented as of this encounter
--- OUTSIDE RECORDS SUMMARY | 2025-05-14 20:36 | XMS_ITS | Encounter Summary ---
Author Organization [employer] ([place], [place], [place], [place]) Address [address] [place] [address] Care Team Providers Care Licensed Loan Officer Name Role Phone Marielos Amaral KAYE Primary Care Provider [phone] Encounter Details Date Type Department Care Team (Late st Contact Info) Description 10/15/2019 Transcribed Document [facility] [place] [address] [place] [address] ProviderHaroldo MD [address] [place] [address] Social History Tobacco Use Types Packs/Day Years Used Date Smoking Tobacco: Never Assessed Sex and Gender Information Value Date Recorded Sex Assigned at Not on file Legal Sex Male 3:45 PM CDT Gender Identity Not on file Sexual Orientation Not on file documented as of this encounter Miscellaneous Notes * Cerner Conversion Note - Historical ProviderMD - 10/15/2019 3:40 AM JOGGLE PRESS OPERATOR Attempt to Treat Entered On: 10/15/2019 7:18 EST Performed On: 10/15/2019 3:40 EST by REJI STERLING Chaplain Attempt to Treat Unable to Treat Due To : Other: Indisposed Inability to Treat Comment : Staff working with [facility]. Norberto plan to Follow up later REJI STERLING Chaplain - 10/15/2019 7:16 EST Electronically signed by Brittany [facility] Conversion Senior Clinical Study Manager Cerner at 01/24/2023 10:32 AM CDT documented in this encounter Plan of Treatment Not on file documented as of this encounter Visit Diagnoses Not on filedocumented in this encounter Care Teams Licensed Loan Officer Relationship Specialty Start Date End Date Marielos Amaral, RECYCLER [address] [id number] PCP - General Nurse Practitioner 08/18/23 documented as of this encounter
--- OUTSIDE RECORDS SUMMARY | 2025-05-14 20:36 | XMS_ITS | Encounter Summary ---
Author Organization [employer] ([place], [place], [place], [place]) Address [address] [place] [address] Care Team Providers Care Aromatherapist Name Role Phone Marielos Amaral APRN Primary Care Provider Encounter Details Date Type Department Care Team (Late st Contact Info) Description 10/15/2019 Transcribed Document [facility] [place] [address] [place] [address] ProviderHaroldo MD [address] [place] [address] Social History Tobacco Use Types Packs/Day Years Used Date Smoking Tobacco: Never Assessed Sex and Gender Information Value Date Recorded Sex Assigned at Not on file Legal Sex Male 3:45 PM CDT Gender Identity Not on file Sexual Orientation Not on file documented as of this encounter Miscellaneous Notes * Cerner Conversion Note - Haroldo ProviderMD - 10/15/2019 6:50 PM AIRCRAFT DISPATCHER Patient: DEION ANTOINE Age: 68 years Sex: Male : 1950 Associated Diagnoses: None Author: MANUELA MELENDEZ MD-CAR Basic Information PCP: Dr. Axel Hamlin MD Primary Restaurant Area Manager: Dr. Tahira Peterson MD / Dr. Bhanu Barrientos MD for LHC's and PCI's prior to CABG Chief Complaint 10/14/2019 17:17 EST c/o L sided, non-radiating dull chest pressure constant in nature onset approx 2 weeks ago, reproduceable with movement of arm or laying on side. History of Present Illness Per Admission H&P HPI: :A 68-year-old male with history of CAD, CABG, [...] perfusion abnormalities noted on the CT scan. Cardiology consult requested for complaints of chest pain that have been ongoing on and off for the last month. Patient with significant history of CAD with prior PCI's (POBA and Stents), S/P OP-CABG X4 02/10/2017 per [facility] with CVA 04/2019, On chronic OAC with Eliquis, HTN, HLD, and ongoing tobacco abuse. He presented to the ED initially with complaints of chest pain but had neurologic changes as described above which prompted a code stroke in which the work-up has been unremarkable thus far. ECHO has been obtained but official reading is pending. He had ECHO 02/2019 which showed LVEF-40% with moderately decreased systolic function with LVH, and diastolic dysfunction. Review of Systems Constitutional: Negative except as documented in history of present illness. Eye: Negative. Ear/Nose/Mouth/Throat: Negative. Respiratory: Negative except as documented in history of present illness. Cardiovascular: Negative except as documented in history of present illness. Gastrointestinal: Negative. Genitourinary: Negative. Hematology/Lymphatics: Negative. Endocrine: Negative. Immunologic: Negative. Musculoskeletal: Negative except as documented in history of present illness. Integumentary: Negative. Neurologic: Negative except as documented in history of present illness. Psychiatric: Negative. All other systems are negative Health Status Allergies (2) Active Reaction amoxicillin None Documented Mucinex None Documented Home Medications (15) Active amiodarone 200 mg oral tablet 200 mg = 1 Tab, Oral, Daily amiodarone 200 mg oral tablet 200 mg = 1 Tab, Oral, Daily atorvastatin 40 mg oral tablet 40 mg = 1 Tab, Oral, At Bedtime Eliquis 5 mg oral tablet 5 mg = 1 Tab, Oral, [id number] Eliquis 5 mg oral tablet 5 mg [...] Shortness of Breath Eliquis: 5 mg, Oral, [id number] Flomax: 0.4 mg, Oral, Daily Metoprolol Succinate ER: 50 mg, Oral, Daily MiraLax: 17 Gram, Oral, Daily, PRN: Constipation Protonix: 40 mg, Oral, Daily Tylenol: 650 mg, Oral, [...] 5 mg oral tablet: 1 Tab, Oral, [id number], 60 Tab, 0 Refill(s) Toprol-XL 25 mg [...] a meal, 30 Cap, 0 Refill(s), Medications (15) Active Scheduled: (8) amiodarone 200 mg tab 200 mg 1 Tab, Oral, Daily apixaban 5 mg tab 5 mg 1 Tab, Oral, [id number] atorvastatin 40 mg tab 40 mg 1 [...] list: All Problems Angina / SNOMED CT 677684630 / Confirmed Coronary artery disease / SNOMED CT 8127568003 / Confirmed Diabetes mellitus type II / SNOMED CT 08256159 / Confirmed GERD - Gastro-esophageal reflux disease / SNOMED CT 4840814790 / Confirmed Heart failure / SNOMED CT 402220625 / Confirmed Heart murmur / SNOMED CT 611423158 / Confirmed History of obstructive sleep apnea / IMO 95170370 / Confirmed Hyperlipidemia / SNOMED CT 65648775 / Confirmed Hypertension / SNOMED CT 90303236 / Confirmed Impaired vision / SNOMED CT 20921474 / Confirmed Enlarged prostate / SNOMED CT 759940942 / Confirmed Migraine / SNOMED CT 52807755 / Confirmed Stented coronary artery / SNOMED CT 3668572080 / Confirmed, Active Problems (13) Angina Coronary [...] 43 Packs/Tins Daily 0.5 Past Medical History: No active or resolved past medical history items have been selected or recorded. Family History: No family history items have been selected or recorded. Procedure history: Cardiac catheterization. hernia repair. Tonsillectomy. Cholecystectomy; (CPT4 31243). Appendectomy. left arm surgery. Coronary stents. Social History Social & Psychosocial Habits Alcohol 04/14/2019 Alcohol [...] of Tobacco Use 43 Packs/Tins Daily 0.5 . Physical Examination VS/Measurements Measurements from flowsheet : Measurements 10/15/2019 5:58 EST Height/Length, GHANAIAN (ft) 5 ft Height/Length GHANAIAN 9 Inch Routine Weight, Kilograms 87.5 kg Body Mass Index (BMI), Routine 28.49 kg/m2 Body Surface Area (BSA), Routine 2.03 m2 , Vitals Signs (last 24 hrs) Last Charted Minimum Maximum Temp 97.8 (OCT 15 16:00) 97.8 (OCT 15 16:00) 98.5 (OCT 14 20:00) Apical HR 75 (OCT 15 07:55) 75 (OCT 15 07:55) 77 (OCT 15 07:55) Mon HR 69 (OCT 15 18:00) 67 (OCT 15 07:00) 104 (OCT 15 17:00) Resp Rate H 22 (OCT 15 18:00) 17 (OCT 15 09:00) H 40 (OCT 15 00:00) SBP H 158 (OCT 15 18:00) 109 (OCT 15 01:00) H 168 (OCT 15 09:30) DBP 73 (OCT 15 18:00) L 51 (OCT 15 01:00) 84 (OCT 15 16:00) MAP 105 (OCT 15 18:00) 74 (OCT 15 01:00) 115 (OCT 15 09:30) SpO2 98 (OCT 15 18:00) L 90 (OCT 15 07:00) 100 (OCT 15 11:00) General: Alert and oriented, No acute distress. Eye: Pupils are equal, round and reactive to light, Extraocular movements are intact, Normal conjunctiva. HENT: Normocephalic, Oral mucosa is [...] Normal strength, No deformity. Integumentary: Warm, Dry, [place], Intact, No rash. Neurologic: Alert, Oriented, No focal deficits. Psychiatric: Cooperative, Appropriate mood & affect. Review / Management OCT 15 04:48 138 108 19 / 79 L 3.3 24 1.30 \ OCT 15 04:48 \ L 12.0 / 8.4 215 / L 34.9 \ Cardiac Markers (Current Encounter/Past 24 Hours) CK MB 1.20 ng/mL 10/15/2019 16:28 CK 101 Units/Liter 10/15/2019 04:57 Blood Gases (Current Encounter/Past 24 Hours) No Blood Gas Results Found (Past 24 Hours) Radiology Results (Last 48 hours) [id number] -- 10/14/2019 17:19 CR Chest 1 Vw [...] No change and no acute intracranial abnormality. Results review: Labs (Last four charted values) WBC 8.4 [...] 15) 0.020 (OCT 14) <0.015 (OCT 14) . ECHO 02/06/2019: Impression: Normal sized left ventricle. Moderate left ventricular hypertrophy. Visually estimated ejection fraction 40% +/- 5%. Moderate left ventricular systolic dysfunction. Abnormal diastolic function. No hemodynamically significant valvular heart disease. No masses or thrombi are seen. Impression and Plan IMPRESSION: Acute CVA s/p TPA (10-14-2019) in setting of atypical chest pain, NSR. Resolved R LE motor deficit, residual R LE paresthesia. Troponin Level Negative X3 Left Chest Wall Pain that has been ongoing for 4+ Weeks / Worse with deep breathing and lying on his left side Hx of PCI / POBA / Stents. [...] Renal Insufficiency SCr 1.30 on admission PLAN: Resume Lisinopril at lower dose (20 mg) in AM. Continue other current CV meds. ECHO. Eventual Lexiscan myoview next week/outpt. OK to telemetry from cardiac standpoint. Electronically signed by Brittany, [facility] Conversion Property Loss Insurance Claim Adjuster [employer] at 01/24/2023 10:45 AM CDT documented in this encounter Plan of Treatment Not on file documented as of this encounter Visit Diagnoses Not on filedocumented in this encounter Care Teams Aromatherapist Relationship Specialty Start Date End Date Marielos Amaral, AKYE [address] [id number] PCP - General Nurse Practitioner 08/18/23 documented as of this encounter
--- OUTSIDE RECORDS SUMMARY | 2025-05-14 20:36 | XMS_ITS | Encounter Summary ---
Author Organization [employer] ([place], [place], [place], [place]) Address [address] [place] [address] Care Team Providers Care Intelligence Officer Name Role Phone Marielos Amaral KAYE Primary Care Provider Encounter Details Date Type Department Care Team (Late st Contact Info) Description 10/16/2019 Transcribed Document [facility] [place] [address] [place] [address] ProviderHaroldo MD [address] [place] [address] Social History Tobacco Use Types Packs/Day Years Used Date Smoking Tobacco: Never Assessed Sex and Gender Information Value Date Recorded Sex Assigned at Not on file Legal Sex Male 3:45 PM CDT Gender Identity Not on file Sexual Orientation Not on file documented as of this encounter Miscellaneous Notes * [employer] Conversion Note - Haroldo ProviderMD - 10/16/2019 5:00 PM BILINGUAL TEACHER ASSISTANT Chart Check - Review Order Profile Entered On: 10/16/2019 17:15 EST Performed On: 10/16/2019 17:00 EST by Deysi Valdes RN Chart Check Powerplans Initiated/Discontinued as Appropriate : Yes All Active Orders Reviewed : Yes Deysi Valdes RN - 10/16/2019 17:15 EST Electronically signed by Brittany [facility] Conversion Muffler Hand Cerner at 01/24/2023 10:45 AM CDT documented in this encounter Plan of Treatment Not on file documented as of this encounter Visit Diagnoses Not on filedocumented in this encounter Care Teams Intelligence Officer Relationship Specialty Start Date End Date Marielos Amaral, ACUTE CARE CERTIFIED NURSING ASSISTANT [address] [place] [address] PCP - General Nurse Practitioner 08/18/23 documented as of this encounter
--- OUTSIDE RECORDS SUMMARY | 2025-05-14 20:36 | XMS_ITS | Encounter Summary ---
Author Organization [employer] ([place], [place], [place], [place]) Address [address] [place] [address] Care Team Providers Care Christian Counselor Name Role Phone Marielos Amaral KAYE Primary Care Provider [phone] Encounter Details Date Type Department Care Team (Late st Contact Info) Description 04/24/2022 Transcribed Document [facility] Radiology [address] [place], [place] [id number] Saba Neal MD [address] [place] [address] [address] [place] [address] Social History Tobacco Use Types Packs/Day Years [...] Do you speak a language other than Jamaican at [facility]? Yes 10/30/2024 Do you want help [...] Note - Saba Neal MD - 04/24/2022 11:21 AM EDT Patient: ZACKARY ANTOINE Age: 71 years Sex: Male : 1950 Associated Diagnoses: None Author: ASBA NEAL MD-[facility] Purpose of Encounter: Advanced care planning in light of [acute on chronic renal failure with metabolic acidosis. Parties in attendance: Patient, Provider, [Family] Decisional Capacity: [Yes] Diagnoses: Acute on chronic kidney failure with metabolic acidosis. Urinary tract infection. Diabetes mellitus. Hyponatremia. History of multiple CVAs with residual right-sided weakness. . Dilated cardiomyopathy. Atrial fibrillation. Hypothyroidism. Patients Medical Story: [71-year-old white male with history of dilated cardiomyopathy and atrial fibrillation. Came in with generalized weakness fatigue and numbness. Found to have acute on chronic renal failure with metabolic acidosis. Nephrology consulted. Started on sodium bicarbonate drip. Kidney function improving slowly.] Goals of Care Determinations: Patient wishes to focus on [DNR/DNI] Plan: Will notify of change in care plan. Will look at further interventions as needed. Code Status: At this time patient wishes to be DNR/DNI Code Status Start: 04/22/22 13:38:00 EDT, DNR Full Treatment-No Intubation/No ACLS, Continuous Order Time Spent with Patient: [18 ] minutes documented in this encounter Plan of Treatment Not on file documented as of this encounter Visit Diagnoses Not on filedocumented in this encounter Care Teams Christian Counselor Relationship Specialty Start Date End Date Marielos Amaral, DIRECTOR OF CONVENTION SERVICES [address] [phone] PCP - General Nurse Practitioner 08/18/23 documented as of this encounter
--- OUTSIDE RECORDS SUMMARY | 2025-05-14 20:36 | XMS_ITS | Encounter Summary ---
Author Organization [email or web address] ([place], [place], [place], [place]) Address [address] [place] [address] Care Team Providers Care Financial Project Manager Name Role Phone Munir Marielos RESTREPO Primary Care Provider [phone] Encounter Details Date Type Department Care Team (Late st Contact Info) Description 04/25/[address] [facility] Family Medicine [address] [place] [address] ProviderHaroldo MD [address] [place] [address] Social History Tobacco Use Types [...] a language other than Central African at [facility]? Yes 10/30/2024 Do you want [...] Conversion Note - Historical Provider, - 04/25/2022 4:19 PM CDT Initial Discharge Planning Entered On: 04/25/2022 16:20 EDT Performed On: 04/25/2022 16:19 EDT by LEXX LOWRY RN-Ecommerce Marketing Specialist Initial Assessment I Previously Documented Living Environment : No qualifying data available. Living Situation : Home Patient Lives With : Spouse Emergency Contact #1 : Kar Carrasco Emergency Contact #1 Emergency Contact #1 Relationship : Emergency Contact #2 : January [place] Emergency Contact #2 Emergency Contact #2 Relationship : daughter Identified Medical Decision Maker : self 2nd Ident. Medical Decision Maker : Kar Carrasco 2nd Ident. Medical Decision Maker Secondary Number of People in Class : 1 2nd Ident. Medical Decision Maker Class : Medical Durable Power of Nurse Office Name : None on file Legal Guardian : No Is Guardianship Needed : No LEXX LOWRY RN-Ecommerce Marketing Specialist - 04/25/2022 16:19 EDT Initial Assessment II Sensory and Motor Deficits : None Current Home Treatments and Equipment : Bedside commode, Blood glucose monitor, Cane, CPAP, Shower chair, Walker Does the Patient have a Floor to SNF Benefit? : No LEXX LOWRY RN-Ecommerce Marketing Specialist - 04/25/2022 16:19 EDT Discharge Needs I Anticipated Discharge Date : 04/27/2022 EDT Anticipated Discharge To, CM : Home with family care Current Home Treatment/Equipment : Current Home Treatment/Equipment No qualifying data available. Post Acute/Home Treatments : None Documentation Status Complete : Yes LEXX LOWRY RN-Ecommerce Marketing Specialist - 04/25/2022 16:19 EDT Discharge Needs II Professional Skilled Services : Professional Skilled Services No qualifying data available. Needs Assistance with Transportation : No Discharge Options Discussed with Patient : DME, Home Health Patient Discharge Goal : Home LEXX LOWRY, RN-Ecommerce Marketing Specialist - 04/25/2022 16:19 EDT documented in this encounter Plan of Treatment Not on file documented as of this encounter Visit Diagnoses Not on filedocumented in this encounter Care Teams Financial Project Manager Relationship Specialty Start Date End Date Marielos Amaral, LEGAL SECRETARY RECEPTIONIST [address] [place] [address] PCP - General Nurse Practitioner 08/18/23 documented as of this encounter
--- NOTE | 2025-05-14 20:38 | ECG_ITS ---
APPROVED REPORT Exam: Resting ECG HR:71 bpm ECG Measurements Heart Rate 71 AXES OK 174 P -3 QRSd 118 QRS 29 QT 430 T 159 QTc 453 Conclusion Normal sinus rhythm at 71 bpm with diffuse T wave inversions in I to aVL, V4 V5 V6 which are new from prior EKG, no acute ST or T wave changes concerning for ischemia Electronically signed by : Dolly Hahn, 05/15/2025 00:36:27
[2025-05-14 20:45] LABS: Lactate Venous 2.6 mmol/L (0.4-2.0); VBG HCO3 26.7 mmol/L (23-30); VBG PCO2 41.7 mmol/L (35-51); VBG PH 7.42 mmol/L (7.31-7.41); VBG PO2 53.1 mmol/L (28-40)
[2025-05-14 20:45] LABS: Hematocrit 35.9 % (42.0-52.0); Hemoglobin 12.1 g/dL (14.1-18.0); Immature Granulocytes % 0.9 %; Mean Corpuscular HGB Conc 33.7 g/dL (31.8-35.4); Mean Corpuscular Hemoglobin 29.3 pg (27.0-31.2); Mean Corpuscular Volume 86.9 fl (80-94); Nucleated Red Blood Cells % 0 %; Platelet Count 242 K/mm3 (142-424); Red Blood Count 4.13 M/mm3 (4.60-6.20); Red Cell Distribution Width-SD 48.5 fL; White Blood Count 8.7 K/mm3 (4.8-10.8)
--- NOTE | 2025-05-14 20:49 | HMH.EDGENADL ---
Discharge Plan Disposition Patient Disposition: Admitted Condition: Fair Clinical Impressions Clinical Impression: Hyperglycemia Discharge ED Provider: Dolly Hahn Adult HPI General Chief complaint: Recheck/Abnormal Lab/Rx Stated complaint: blood sugar is high Time Seen by Provider: 05/14/25 20:24 Mode of Arrival: Ambulatory Source of Information: Patient and Relative Description of Symptoms (Recalled from ER Triage Doc. by RN): Pt presents for evaluation of high blood sugar. Pt states his BGL at home was 595. Denies any other complaints History of Present Illness HPI narrative: 74-year-old gentleman with past medical history of diabetes significant to the emergency department with high blood sugar at home. Patient states that he is a type I diabetic patient uses insulin. Patient states that he was recently seen by his primary care provider and his insulin regimen was changed. Patient was previously on 1 insulin shot today. Patient states that he was recently changed to 4 shots of insulin a day with meals and long-acting at night. Patient states that he took his long-acting insulin at night but his blood sugar at home was 7 patient denies any other recent infectious symptoms including fevers, chills runny nose. Patient denies abdominal pain nausea vomiting or diarrhea. Patient denies any chest pain or shortness of breath. Related Data Home Medications ?Medication ?Instructions ?Recorded ?Confirmed acetaminophen 500 mg tablet 500 mg PO Q6HP PRN Mild Pain 03/08/25 05/15/25 (Scale Score 1-4) insulin lispro 100 unit/mL 40 unit SQ TID 05/15/25 05/15/25 subcutaneous pen (Humalog KwikPen (U-100) Insulin) rivaroxaban 15 mg tablet (Xarelto) 15 mg PO QPMWITHMEAL 05/15/25 05/15/25 Previous Rx's ?Medication ?Instructions ?Recorded atorvastatin 40 mg tablet 40 mg PO HS #90 tabs 03/14/25 clopidogrel 75 mg tablet 75 mg PO DAILY #90 tabs 03/14/25 omeprazole 40 mg capsule,delayed 40 mg PO DAILY #90 caps 03/14/25 release bumetanide 2 mg tablet 2 mg PO BID 30 days #60 tabs 04/05/25 ferrous sulfate 325 mg (65 mg 325 mg PO DAILY #90 tabs 04/05/25 iron) tablet isosorbide dinitrate 20 mg tablet 20 mg PO TID 30 days #90 tabs 04/05/25 dapagliflozin propanediol 10 mg 10 mg PO DAILY #30 tabs 04/06/25 tablet (Farxiga) metoprolol succinate 25 mg 25 mg PO DAILY #30 tabs 04/06/25 tablet,extended release 24 hr hydralazine 10 mg tablet 20 mg (2 x 10 mg) PO TID 30 days 04/22/25 #180 tabs levothyroxine 100 mcg tablet 100 mcg PO DAILY #90 tabs 04/22/25 amiodarone 200 mg tablet 200 mg PO DAILY 30 days #30 tabs 05/12/25 blood-glucose sensor (Dexcom G6 #9 ea 05/14/25 Sensor device) blood-glucose transmitter (Dexcom #1 ea 05/14/25 G6 Transmitter device) blood-glucose,qa automation engineer,cont #1 ea 05/14/25 (Dexcom G6 Flyer Maker) insulin glargine 100 unit/mL 35 unit (0.35 mL) SQ HS 30 days #0 05/16/25 subcutaneous solution (Lantus mL U-100 Insulin) Allergies Allergy/AdvReac Type Severity Reaction Status Date / Time amoxicillin Allergy Rash Verified 05/13/25 14:58 Penicillins Allergy Rash Verified 05/13/25 14:58 [facility] Disclaimer: The information contained in this section may have been updated after the patient was seen, as this information can be updated by other users. Medical History (Updated 05/17/25 @ 00:00 by Background Daemon) HFrEF (heart failure with reduced ejection fraction) Chest pain Calf cramp Elevated troponin New onset of congestive heart failure CHF (congestive heart failure) Sinus tachycardia Dyspnea B12 deficiency Painful urination Screening for prostate cancer Screening for HIV (human immunodeficiency virus) Encounter for HCV screening test for low risk patient Colon cancer screening Right flank pain Proteinuria Foreign body in left ear Hearing loss LOM (left otitis media) Dermatitis Tympanosclerosis, right ear Left serous otitis media Acute left otitis media Dizziness Otitis media Left elbow fracture Decreased mobility Right hip pain Acute cystitis without hematuria Dysuria Injury of left elbow Injury due to fall Left elbow pain Laceration of lip Inguinal hernia bilateral, non-recurrent Abnormal cardiovascular stress test PAF (paroxysmal atrial fibrillation) CKD stage 4 due to type 2 diabetes mellitus (~05/14/25) Typical angina Coronary artery disease Stroke Fall Head injury COVID-19 Surgical History (Updated 05/17/25 @ 00:00 by Background Daemon) History of tonsillectomy History of appendectomy Hx of cholecystectomy History of colonoscopy Presence of stent in coronary artery Hx of CABG Family History Other No significant family history Social History (Updated 05/15/25 @ 00:24 by Jazmin Brunson RN) Smoking Status: Former smoker tobacco type: cigarettes packs per day: 1 smoking status stop date: 10 years ago alcohol intake: never substance use type: denies use current occupational status: retired Travel in the last 8 weeks?: [place] household members: children housing: house marital status: legally current occupation: [employer] current occupational exposures/hazards: No caffeine: Yes Other Medical History Have you received the Flu Vaccine for this season: No Have you received the Pneumonia Vaccine: No ROS Obtained: Yes All systems reviewed & no additional complaints except as documented and Yes Systems reviewed as appropriate & no additional complaints except as documented Physical Exam General General appearance: alert and in no apparent distress Head Head exam: atraumatic, normocephalic and normal inspection Eye Eye exam: Present normal appearance, PERRL and EOMI; Absent scleral icterus ENT ENT exam: Present normal exam and normal external ear exam Neck Neck exam: Present normal inspection and full ROM Chest Chest inspection: Present normal inspection and symmetric chest wall rise Respiratory Respiratory exam: Present normal lung sounds bilaterally; Absent respiratory distress or wheezes Cardiovascular Cardiovascular exam: Present regular rate, normal rhythm and normal heart sounds Abdominal Exam Abdominal exam: Present soft and distention; Absent tenderness, guarding or rebound Extremities Exam Extremities exam: Present normal inspection and full ROM Back Exam Back exam: Present normal inspection and full ROM Neurological Exam Neurological exam: Present alert and oriented X3 Psychiatric Psychiatric exam: Present normal affect and normal mood Skin Skin exam: Present warm and dry Medical Decision Making Medical Records Screening: Per USPSTF and CDC recommendations, given the prevalence of disease in our region, it is our hospital?s policy to screen for HIV and viral Hepatitis for all patients aged 18 and over and those with ongoing risk factors. Roderick Inquiry Pt receiving controlled substance: No Vital Signs: 05/14/25 20:31 05/14/25 22:54 05/14/25 23:18 Temperature 98 F 98 F Temperature Source Oral Oral Pulse Rate 63 Pulse Rate [Right] 80 Respiratory Rate 18 17 Blood Pressure 129/69 Blood Pressure [Right Arm] 156/84 H Blood Pressure Mean [Right Arm] 108 Blood Pressure Source [Right Arm] Automatic Cuff Blood Pressure Position Sitting Blood Pressure Position [Right Arm] Sitting 02 Sat by Pulse Oximetry 100 Oxygen Delivery Method Room Air Room Air Room Air Lab Data Lab results reviewed: Yes I reviewed the patient's lab results. Lab Results 05/14/25 20:34: WBC 8.7, RBC 4.13 L, Hgb 12.1 L, Hct 35.9 L, MCV 86.9, MCH 29.3, MCHC 33.7, RDW 15.4, Plt Count 242, MPV 10.0, Neut % (Auto) 69.5, Lymph % (Auto) 18.4, Cowley % (Auto) 9.3, Eos % (Auto) 1.6, Baso % (Auto) 0.3, Neut # (Auto) 6.1, Lymph # (Auto) 1.6, Cowley # (Auto) 0.8, Eos # (Auto) 0.1, Baso # (Auto) 0.0, Sodium 123 L, Potassium 4.4, Chloride 87 L, Carbon Dioxide 26, Anion Gap 14.4, BUN 53 H, Creatinine 2.60 H, Estimated Creat Clear 29, Estimated GFR 24 L, Est GFR ( Amer) 29 L, Glucose 597 H*, Serum Osmolality 309 H, Calcium 8.7, Phosphorus 4.3, Magnesium 2.1, Total Bilirubin 0.6, AST 36, ALT 48, Alkaline Phosphatase 401 H, Total Protein 7.2, Albumin 4.1, Globulin 3.1, Albumin/Globulin Ratio 1.3 05/14/25 20:36: Hemoglobin A1c 11.3 H, Troponin I 0.05 H 05/14/25 20:39: VBG pH 7.42 H, VBG pCO2 41.7, VBG pO2 53.1 H, VBG HCO3 26.7, VBG Total CO2 28.0 H, VBG O2 Saturation 87.3 H, VBG Base Excess 2.3, VBG Lactic Acid 2.6 H 05/14/25 21:35: Urine Color Yellow, Urine Appearance Clear, Urine pH 6.0, Ur Specific [place] <= 1.005, Urine Protein Negative, Urine Glucose (UA) 3+, Urine Ketones Negative, Urine Blood Negative, Urine Nitrate Negative, Urine Bilirubin Negative, Urine Urobilinogen 0.2, Ur Leukocyte Esterase Negative, Urine RBC None, Urine WBC None, Ur Squamous Epith Cells Occasional, Urine Bacteria None 05/16/25 06:47 05/16/25 06:47 Orders (Tests/Meds): ED MEDICATIONS Discontinued Medications Generic Name Dose Route Start Last Admin Trade Name Freq PRN Reason Stop Dose Admin Albuterol/Ipratropium 3 ml 05/14/25 23:00 Ipratropium/Albuterol 3 Ml Neb IH 06/13/25 22:59 Q6HP PRN Shortness Of Breath Amiodarone HCl 200 mg 05/16/25 09:00 05/16/25 08:28 Amiodarone 200mg Tablet PO 06/15/25 08:59 200 mg DAILY PJ Administration Atorvastatin Calcium 40 mg 05/15/25 21:00 05/15/25 20:39 Atorvastatin 40mg Tablet PO 06/14/25 20:59 40 mg HS PJ Administration Bumetanide 2 mg 05/15/25 09:45 05/16/25 08:28 Bumetanide 1 Mg Tablet PO 06/14/25 09:44 2 mg BIDL PJ Administration Clopidogrel Bisulfate 75 mg 05/15/25 09:30 05/16/25 08:29 Clopidogrel 75mg Tab PO 06/14/25 09:29 75 mg DAILY PJ Administration Dapagliflozin 10 mg 05/15/25 09:30 05/16/25 08:29 Dapagliflozin Propanediol 10 Mg Tablet PO 06/14/25 09:29 10 mg DAILY PJ Administration Famotidine 20 mg 05/15/25 09:00 05/15/25 08:58 Famotidine 20mg/2ml Vial IV 06/14/25 08:59 20 mg BID PJ Administration Famotidine 20 mg 05/16/25 09:00 05/16/25 08:29 Famotidine 20mg/2ml Vial IV 06/15/25 08:59 20 mg DAILY PJ Administration Famotidine 10 mg 05/16/25 09:00 Famotidine 20mg/2ml Vial IV 06/15/25 08:59 DAILY PJ Famotidine 10 mg 05/17/25 09:00 Famotidine 20mg/2ml Vial IV 06/16/25 08:59 DAILY PJ Hydralazine HCl 20 mg 05/15/25 13:00 05/16/25 13:31 Hydralazine 10mg Tablet PO 06/14/25 12:59 20 mg TID PJ Administration Insulin Glargine 30 unit 05/15/25 21:00 05/15/25 20:39 Insulin Glargine 100 Units/Ml 3ml Flexpen SUBCUT 06/14/25 20:59 30 units HS PJ Administration Insulin Glargine 35 unit 05/16/25 21:00 Insulin Glargine 100 Units/Ml 3ml Flexpen SUBCUT 06/15/25 20:59 HS PJ Insulin Human Lispro 10 unit 05/14/25 21:34 05/14/25 21:42 Humalog 100 Units/Ml 10ml Vial (Ssi) SUBCUT 05/14/25 21:35 10 unit ONCE ONE Administration Insulin Human Lispro 0 unit 05/14/25 23:00 05/15/25 04:49 Humalog 100 Units/Ml 10ml Vial (Ssi) SUBCUT 06/13/25 22:59 Not Given Q2H PJ Protocol Insulin Human Lispro 0 unit 05/15/25 08:00 05/15/25 08:58 Humalog 100 Units/Ml 10ml Vial (Ssi) SUBCUT 06/14/25 07:59 7 unit Q4HP PRN Administration Blood Sugar - High Protocol Insulin Human Lispro 0 unit 05/15/25 09:29 05/15/25 11:54 Humalog 100 Units/Ml 10ml Vial (Ssi) SUBCUT 06/14/25 07:59 7 unit ACHS PRN Administration Blood Sugar - High Protocol Insulin Human Lispro 0 unit 05/15/25 21:00 05/16/25 11:40 Humalog 100 Units/Ml 10ml Vial (Ssi) SUBCUT 06/14/25 20:59 7 unit ACHS PJ Administration Protocol Isosorbide Dinitrate 20 mg 05/15/25 13:00 05/16/25 13:35 Isosorbide Dinitrate 20 Mg Tablet PO 06/14/25 12:59 20 mg TID PJ Administration Levothyroxine Sodium 100 mcg 05/15/25 09:30 05/16/25 06:04 Levothyroxine 100mcg (0.1mg) Tab PO 06/14/25 09:29 100 mcg DAILYDM PJ Administration Metoprolol Succinate 25 mg 05/16/25 09:00 05/16/25 08:29 Metoprolol Succinate Xl 25mg Tablet PO 06/15/25 08:59 25 mg DAILY PJ Administration Ondansetron HCl 4 mg 05/14/25 23:00 05/16/25 01:56 Ondansetron 4mg/2ml Vial IV 06/13/25 22:59 4 mg Q6HP PRN Administration Nausea Oxymetazoline HCl 2 ml 05/15/25 20:00 05/15/25 20:38 Oxymetazoline Nasal [place] 0.05% 15ml NS 06/14/25 19:59 2 ml BIDP PRN Administration Nasal Congestion Rivaroxaban 15 mg 05/15/25 17:30 05/15/25 16:29 Rivaroxaban 15mg Tablet PO 06/14/25 17:29 15 mg QPMWITHMEAL PJ Administration Sodium Chloride 8 ml 05/14/25 23:00 05/16/25 08:29 Sodium Chloride 0.9% 10ml Vial IV 06/13/25 22:59 8 ml NEEDED PRN Administration dilute famotidine ORDERS Category Date Time Status CXR --portable [XR chest portable] Stat Exams 05/14/25 20:36 Completed B-Hydroxybutyrate Stat Lab 05/14/25 20:34 Results CBC w/Auto Diff [Complete Blood Count Auto Diff] Stat Lab 05/14/25 20:34 Completed CMP [Comprehensive Metabolic Panel] Stat Lab 05/14/25 20:34 Completed Hemoglobin A1C Stat Lab 05/14/25 20:36 Completed MAG [Magnesium] Stat Lab 05/14/25 20:34 Completed Osmolality Stat Lab 05/14/25 20:34 Results PHOS [Phosphorous] Stat Lab 05/14/25 20:34 Completed Trop I [Troponin I] Stat Lab 05/14/25 20:36 Completed Troponin I Q3H Lab 05/15/25 00:41 Completed Troponin I Q3H Lab 05/15/25 05:11 Completed UA [Urinalysis and Microscopic] Stat Lab 05/14/25 21:35 Completed Blood Culture Stat Micro 05/14/25 21:26 Results Urine Culture Stat Micro 05/14/25 21:35 Completed VBG [Venous Blood Gas] Stat RT 05/14/25 20:39 Completed Medical Decision Narrative: Patient is a 74-year-old male with past medical history of diabetes who presents to the emergency department with high blood sugar at home. On arrival, patient is hemodynamically stable, vital signs. Differential includes but not limited to: Hyperglycemia, dehydration, UTI, pneumonia, electrolyte abnormalities, DKA, amongst others. Patient's EKG shows diffuse new T wave inversions and 1 to, aVL, V4 V5 V6 which is new in comparison to previous EKG. No acute ST or T wave changes concerning for ischemia at this time. Patient's labs were reviewed and interpreted by myself: CBC showed no leukocytosis, hemoglobin is stable. CMP shows pseudohyponatremia otherwise unremarkable. Patient's glucose was 597. No anion gap acidosis. Patient's initial troponin was elevated at 0.05. Patient chest x-ray reviewed and interpreted by myself and showed no acute focal infarction, pneumothorax, pleural effusion or other acute cardiopulmonary process. Given patient's significant hyperglycemia after already taking his long-acting insulin tonight felt that patient warranted admission for further evaluation of his hyperglycemia as well as his elevated troponin in the setting of new T wave versions. Hospital medicine was consulted patient was ultimately admitted to their service for further evaluation and workup. Critical Care Critical Care Time Critical Care Time: No
--- NOTE | 2025-05-14 20:53 | PC.NURSE ---
xray at the bedside.
[2025-05-14 20:56] LABS: Alanine Aminotransferase 48 U/L (12-78); Albumin Level 4.1 g/dl (3.5-5.0); Albumin/Globulin Ratio 1.3 (1.1-1.8); Alkaline Phosphatase 401 U/L (38-126); Anion Gap 14.4 mEq/L (5-15); Aspartate Amino Transferase 36 U/L (17-59); Bilirubin,Total 0.6 mg/dl (0.2-1.3); Blood Urea Nitrogen 53 mg/dl (9-20); Calcium 8.7 mg/dl (8.4-10.2); Carbon Dioxide 26 mmol/L (22.0-30.0); Chloride 87 mmol/L (98-107); Creatinine Clearance Estimated 29 mL/min (50-200); Creatinine,Serum 2.60 mg/dl (0.66-1.25); Estimated Glomerular Filt Rate 24 ml/min (>60); GFR (African American) 29 ML/MIN (>60); Globulin 3.1 g/dL (1.3-3.2); Magnesium 2.1 mg/dl (1.6-2.3); Phosphorous 4.3 mg/dl (2.5-4.5); Potassium 4.4 mmoL/L (3.5-5.1); Sodium 123 mmol/L (136-145); Total Protein,Serum 7.2 g/dl (6.3-8.2)
[2025-05-14 20:59] LABS: Glucose 597 mg/dl (74-100)
--- NOTE | 2025-05-14 21:00 | PC.NURSE ---
attending not at the nurses stationAidee (mid level) provider made aware of critical value
--- NOTE | 2025-05-14 21:07 | PC.NURSE ---
Dr Hahn back at the desk, made aware of BG reading per lab
--- NOTE | 2025-05-14 21:32 | ECG_ITS ---
APPROVED REPORT Exam: Resting ECG HR:74 bpm ECG Measurements Heart Rate 74 AXES TN 182 P 12 QRSd 121 QRS 27 QT 426 T 170 QTc 453 Conclusion Normal sinus rhythm at 74 per minute with some T wave flattening and inversions in [address] or T wave changes concerning for ischemia Electronically signed by : Dolly Hahn, 05/26/2025 00:17:20
[2025-05-14] MEDS: humaLOG 100 UNITS/ML 10ML VIAL (SSI) 10 UNIT SUBCUT (21:42)
[2025-05-14 21:43] LABS: Microscopic, Urine URINE MICROSCOPIC (MICROSCOPIC)
[2025-05-14 21:48] LABS: Bilirubin,Urine Negative (Negative); Color,Urine YELLOW (Yellow); Glucose,Urine (UA) 3+ (Negative); Ketones,Urine Negative (Negative); Leukocyte Esterase,Urine Negative (Negative); PH,Urine 6.0 (5.0-8.5); Protein,Urine Negative (Negative); Specific Gravity, Urine <= 1.005 (1.005-1.030); Urobilinogen,Urine 0.2 EU/dl (0.2)
[2025-05-14 21:56] LABS: Squamous Epithelial Cell,Urine Occasional #/hpf (0-5)
[2025-05-14 22:13] LABS: Troponin I 0.05 ng/ml (0.00-0.034)
[2025-05-14 22:26] LABS: Hemoglobin A1C 11.3 % (4.0-6.0)
--- NOTE | 2025-05-14 22:43 | PC.NURSE ---
Called house moving supervisor for a bed
--- NOTE | 2025-05-14 23:11 | PC.NURSE ---
Report given to Zofia RN in the ICU
[2025-05-14 23:18] VITALS: BP 129/69; PULSE 63; RESP 17; TEMP 36.6; O2SAT 96
--- NOTE | 2025-05-14 23:25 | PC.NURSE ---
pt to unit via stretcher at 1232
[2025-05-14 23:36] VITALS: BMI 26.8
[2025-05-14 23:38] VITALS: BP 124/67; PULSE 70; RESP 13; TEMP 36.4; O2SAT 99
[2025-05-15] VITALS (15 sets, daily range): BP systolic 99–144; BP diastolic 44–72; PULSE 61–82; RESP 11–22; TEMP 36.4–37; O2SAT 95–99; BMI 26.8
[2025-05-15 00:06] LABS: POC Glucose,Bedside 302 (70-110)
--- NOTE | 2025-05-15 00:41 | P.HP_ITS ---
<Statement entered by Kurt Lagos MD - 05/15/25 12:58> Rounded on patient after nurse practitioner. Personally examined and interviewed patient. Agree with exam findings and care plan as documented. History of Present Illness *Admission Date: 05/14/25 *Reason for visit:: Congestive heart failure, hyperglycemia with electrolyte disturbance, T wav *History of present illness: Mr. Carrasco tells me that he does not feel very well at this time.. That there is not anything specific that he does know his blood sugar has just kept increasing. Also he recently was increased on his thyroid medicine as his TSH is close to 20. Labs have now showed he has fairly significant hyponatremia with low chloride with renal insufficiency and blood sugars greater than 500. Troponin slightly elevated TSH around 20. Patient is noted is having a cardiomegaly on top of this. My notes I found an ejection fraction of 35% but patient tells me his last evaluation his ejection fraction is 10%. He is post CABG and his last scan showed mild ascites in the abdomen. After talking with the ER doctor feel go ahead and place him into the unit. Radiology consult, try to slowly bring his blood sugar back down to a normal level continue his home meds hoping that his thyroid medication will return him to a normal TSH. I have talked to the patient he wants to be a DNR DNI. Noting his chest x-ray basically besides a mildly to moderate cardiac enlargement of the left ventricle lungs were clear., Blood sugar has been over 500 at 1 time. Will continue to try to get this down to an acceptable level and keep it there. [facility] Disclaimer: The information contained in this section may have been updated after the patient was seen, as this information can be updated by other users. Medical History (Updated 05/15/25 @ 12:45 by Kurt Lagos MD) HFrEF (heart failure with reduced ejection fraction) Chest pain Calf cramp Elevated troponin New onset of congestive heart failure CHF (congestive heart failure) Sinus tachycardia Dyspnea B12 deficiency Painful urination Screening for prostate cancer Screening for HIV (human immunodeficiency virus) Encounter for HCV screening test for low risk patient Colon cancer screening Right flank pain Proteinuria Foreign body in left ear Hearing loss LOM (left otitis media) Dermatitis Tympanosclerosis, right ear Left serous otitis media Acute left otitis media Dizziness Otitis media Left elbow fracture Decreased mobility Right hip pain Acute cystitis without hematuria Dysuria Injury of left elbow Injury due to fall Left elbow pain Laceration of lip Inguinal hernia bilateral, non-recurrent Abnormal cardiovascular stress test PAF (paroxysmal atrial fibrillation) CKD stage 4 due to type 2 diabetes mellitus (~05/14/25) Typical angina Coronary artery disease Stroke Fall Head injury COVID-19 Surgical History History of tonsillectomy History of appendectomy Hx of cholecystectomy History of colonoscopy Presence of stent in coronary artery Hx of CABG Family History Other No significant family history Social History (Updated 05/15/25 @ 00:24 by Jazmin Brunson RN) Smoking Status: Former smoker tobacco type: cigarettes packs per day: 1 smoking status stop date: 10 years ago alcohol intake: never substance use type: denies use current occupational status: retired Travel in the last 8 weeks?: Inside the [place] household members: children housing: house marital status: legally current occupation: [employer] current occupational exposures/hazards: No caffeine: Yes Have you lived/traveled outside [place] in past 30 days?: No Contact w/someone who lives/traveled outside US past 30 days?: No Exposure to someone with infectious disease in past 14 days?: No Do you have a fever (greater than 100.4 F or 38 C)?: No Have you tested positive for COVID-19?: No Exposed to someone with COVID-19 in past 14 days?: No Do you have a sore throat?: No Do you have a cough?: No Do you have any weakness?: No Do you have any diarrhea?: No Are you experiencing any unusual bleeding?: No Do you have any muscle aches/pain?: No Do you have any abdominal pain?: No Are you experiencing loss of taste or smell?: No Other Medical History Have you received the Flu Vaccine for this season: Yes Have you received the Pneumonia Vaccine: No Review of Systems Review of Systems Review of systems:: pertinent systems reviewed and negative unless documented below Constitutional Constitutional: Reports as per HPI Eyes Eyes: Reports as per HPI ENT Ears, Nose, Mouth, and Throat: Reports as per HPI *Cardiovascular Cardiovascular: Reports as per HPI *Respiratory Respiratory: Reports as per HPI *Gastrointestinal Gastrointestinal: Reports as per HPI *Genitourinary Genitourinary: Reports as per HPI *Musculoskeletal Musculoskeletal: Reports as per HPI Integumentary/Breasts Skin/Breast: Reports as per HPI *Neurologic Neurologic: Reports as per HPI Psychiatric Psychiatric: Reports as per HPI Endocrine Endocrine: Reports as per HPI Hematologic/Lymphatic Hematologic/Lymphatic: Reports as per HPI Allergic/Immunologic Allergic/Immunologic: Reports as per HPI Meds Home Medications and Allergies Home Medications ?Medication ?Instructions ?Recorded ?Confirmed ?Type acetaminophen 500 mg tablet 500 mg PO Q6HP PRN Mild Pa in 03/08/25 05/15/25 History (Scale Score 1-4) atorvastatin 40 mg tablet 40 mg PO HS #90 tabs 5 05/15/25 Rx clopidogrel 75 mg tablet 75 mg PO DAILY #90 tabs 06/3005/15/25 Rx omeprazole 40 mg capsule,delayed 40 mg PO DAILY #90 ca ps 03/14/25 05/15/25 Rx release bumetanide 2 mg tablet 2 mg PO BID 30 days #60 tabs 04/05/25 05/15/25 Rx ferrous sulfate 325 mg (65 mg 325 mg PO DAILY #90 tabs 04/05/25 05/15/25 Rx iron) tablet isosorbide dinitrate 20 mg tablet 20 mg PO TID 30 days #90 tabs 04/05/25 05/15/25 Rx dapagliflozin propanediol 10 mg 10 mg PO DAILY #30 tab s 04/06/25 05/15/25 Rx tablet (Farxiga) metoprolol succinate 25 mg 25 mg PO DAILY #30 tabs 11/3005/15/25 Rx tablet,extended release 24 hr hydralazine 10 mg tablet 20 mg (2 x 10 mg) PO TID 30 days 04/22/25 05/15/25 Rx #180 tabs levothyroxine 100 mcg tablet 100 mcg PO DAILY #90 tabs 04/22/25 05/15/25 Rx amiodarone 200 mg tablet 200 mg PO DAILY 30 days #30 tabs 05/12/25 05/15/25 Rx blood-glucose sensor (Dexcom G6 #9 ea 05/14/25 5 Rx Sensor device) blood-glucose transmitter (Dexcom #1 ea 05/14/2505/14 Rx G6 Transmitter device) blood-glucose,assessment technician,cont #1 ea 05/14/25 05/14/25 Rx (Dexcom G6 [place]) insulin glargine 100 unit/mL 32 unit SQ HS 05/15/25 History subcutaneous solution (Lantus U-100 Insulin) insulin lispro 100 unit/mL 40 unit SQ TID 05/15/2507/30 History subcutaneous pen (Humalog KwikPen (U-100) Insulin) rivaroxaban 15 mg tablet (Xarelto) 15 mg PO QPMWITHMEA L 05/15/25 05/15/25 History New Prescriptions to Start Prescriptions: Allergies Allergy/AdvReac Type Severity Reaction Status Date / Time amoxicillin Allergy Rash Verified 05/13/25 14:58 Penicillins Allergy Rash Verified 05/13/25 14:58 Exam Data for Last 24 hours Vital signs and Labs for Last 24 Hours: Temp Pulse Resp BP Pulse Ox O2 Del Method 98.3 F 63 17 99/72 L 98 Room Air 05/15/25 00:00 05/15/25 00:00 05/15/25 00:00 05/15/25 00:00 05/15/25 00:00 05/15/25 00:00 Laboratory Results - last 24 hr 05/14/25 20:34: WBC 8.7, RBC 4.13 L, Hgb 12.1 L, Hct 35.9 L, MCV 86.9, MCH 29.3, MCHC 33.7, RDW 15.4, Plt Count 242, MPV 10.0, Neut % (Auto) 69.5, Lymph % (Auto) 18.4, [place] % (Auto) 9.3, Eos % (Auto) 1.6, Baso % (Auto) 0.3, Neut # (Auto) 6.1, Lymph # (Auto) 1.6, [place] # (Auto) 0.8, Eos # (Auto) 0.1, Baso # (Auto) 0.0, Sodium 123 L, Potassium 4.4, Chloride 87 L, Carbon Dioxide 26, Anion Gap 14.4, BUN 53 H, Creatinine 2.60 H, Estimated Creat Clear 29, Estimated GFR 24 L, Est GFR ( Amer) 29 L, Glucose 597 H*, Calcium 8.7, Phosphorus 4.3, Magnesium 2.1, Total Bilirubin 0.6, AST 36, ALT 48, Alkaline Phosphatase 401 H, Total Protein 7.2, Albumin 4.1, Globulin 3.1, Albumin/Globulin Ratio 1.3 05/14/25 20:36: Hemoglobin A1c 11.3 H, Troponin I 0.05 H 05/14/25 20:39: VBG pH 7.42 H, VBG pCO2 41.7, VBG pO2 53.1 H, VBG HCO3 26.7, VBG Total CO2 28.0 H, VBG O2 Saturation 87.3 H, VBG Base Excess 2.3, VBG Lactic Acid 2.6 H 05/14/25 21:35: Urine Color Yellow, Urine Appearance Clear, Urine pH 6.0, Ur Specific [place] <= 1.005, Urine Protein Negative, Urine Glucose (UA) 3+, Urine Ketones Negative, Urine Blood Negative, Urine Nitrate Negative, Urine Bilirubin Negative, Urine Urobilinogen 0.2, Ur Leukocyte Esterase Negative, Urine RBC None, Urine WBC None, Ur Squamous Epith Cells Occasional, Urine Bacteria None 05/14/25 23:54: POC Glucose 302 H* I & O for Last 24 hours: Intake & Output 05/12/25 05/13/25 05/14/25 05/15/25 05:59 05:59 05:59 05:59 Output Total 900 / 900 Balance -900 / -900 Weight 180 lb 15.992 oz Radiology Reports for the Last 24 Hours: Lungs: Unremarkable. No consolidation. Pleural spaces: Unremarkable. No pleural effusion. No pneumothorax. Heart/Mediastinum: Mild cardiomegaly. Bones/joints: Sternotomy wires. Constitutional Constitutional: mild distress *Routine HEENT Exam Head: Present normocephalic and atraumatic Eye: Present EOMI and PERRL ENT: Present mucous membranes moist *Routine Neck Exam Neck: Present supple and full ROM *Routine Respiratory Exam Respiratory: Present CTA bilaterally, diminished air movement and able to speak in complete sentences *Routine Cardiovascular Exam Cardiovascular: Present RRR, Normal S1, Normal S2 and bradycardia *Routine Abdominal Exam Abdominal: Present soft and normoactive bowel sounds *Routine Rectal Exam Rectal:: deferred *Routine Genitalia Exam Genitalia:: deferred *Routine Extremities Exam Extremities: Present pulses intact Comments: Did not stand patient but there is no significant edema in the lower extremity moves all extremities well is able to turn in the bed move his covers without any help. *Routine Skin Exam Skin: Present intact and normal turgor Comments: Patient kind of pale but no jaundice, no areas of skin breakdown found *Routine Neurological Exam Neurological: Present alert, oriented X3, CN II-XII intact, vision grossly intact, hearing grossly intact and normal speech Comments: Patient was able to give me a good history, easy to converse showed no signs of any acute neurologic deficit H&P: Result Impressions 1. Uncontrolled blood sugar 2. Renal insufficiency with electrolyte disturbance 3. Elevated troponin, with new T wave inversion, and mild to moderate cardiomegaly ejection fraction 10% per patient 4. Hypothyroidism with recent increase in medication dose 5. Weakness with failure to thrive Imaging and Cardiology Chest x-ray: Additional comments: Slightly enlarged left ventricle no other acute finding Assessment and Plan *Assessment and plan (1) Hyperglycemia: Status: Acute Category: Medical Code(s): R73.9 - Hyperglycemia, unspecified (2) Uncontrolled type 2 diabetes mellitus: Status: Acute Qualifiers: Glycemic state: with hyperglycemia Qualified Code(s): E11.65 - Type 2 diabetes mellitus with hyperglycemia Category: Medical (3) Ischemic cardiomyopathy: Status: Acute Category: Medical Code(s): I25.5 - Ischemic cardiomyopathy (4) Hyponatremia: Status: Acute Category: Medical Code(s): E87.1 - Hypo-osmolality and hyponatremia (5) HFrEF (heart failure with reduced ejection fraction): Status: Chronic Category: Medical Code(s): I50.20 - Unspecified systolic (congestive) heart failure (6) Hypothyroidism (acquired): Status: Chronic Category: Medical Code(s): E03.9 - Hypothyroidism, unspecified (7) CKD stage 4 due to type 2 diabetes mellitus: Status: Chronic Category: Medical Code(s): E11.22 - Type 2 diabetes mellitus with diabetic chronic kidney disease; N18.4 - Chronic kidney disease, stage 4 (severe) (8) Coronary artery disease: Status: Chronic Qualifiers: Associated angina: with other forms of angina Coronary Disease- Associated Artery/Lesion type: bypass graft [place] vs. transplanted heart: [place] heart Qualified Code(s): I25.708 - Atherosclerosis of coronary artery bypass graft(s), unspecified, with other forms of angina pectoris Category: Medical Code(s): I25.10 - Atherosclerotic heart disease of [place] coronary artery without angina pectoris Plan Zackary Carrasco is a 74-year-old male with a medical history significant for A-fib, HFrEF, CAD/CABG, NSTEMI, CKD stage IV, hypertension, type 2 diabetes, BPH, GERD who presents with uncontrolled diabetes. Ran out of his insulin. Discussed case with ER physician, request admission for hyperglycemia, electrolyte disturbances, in the setting of a patient with severe heart failure and weakness. Medicine agreed to admit for further management and resumption of insulin. Problems addressed as follows: Hyperglycemia Type 2 diabetes - Glucose elevated on admission. Ordered A1c for the morning. - Received 10 units short acting insulin. Resume basal insulin glargine 30 units nightly. Continue sliding scale high intensity. Fingersticks ACHS. - Monitor for short acting needs. Concern that patient is not complying with his regimen given the worsening A1c over the past 4 months. - Repeat CBC, CMP, magnesium ordered for the morning - Sodium low at 123, glucose elevated at 597. Chloride 87. Potassium 4.4 #chronic HFrEF Hypertension CAD status post CABG 2017, LUKE 2021. ? Shortness of breath stable, BNP improving from last admission at 8000. - Resume home regimen of amiodarone 200 mg daily, Bumex 2 mg twice daily, Lipitor 40 mg nightly, Plavix 75 mg daily, dapagliflozin 10 mg daily, hydralazine 20 mg 3 times a day, isosorbide 20 mg 3x today, metoprolol succinate 25mg daily - Does not appear in exacerbation at this time - echocardiogram obtained 02/02 showing EF of 10 to 15% #CKD stage IV #Hyperkalemia - Bilateral renals were normal on cath 12/2024 - Baseline creatinine 2.2-2.4. Creatinine 2.7. More or less his baseline #Hypothyroidism: TSH increased at 20 on 05/13. Levothyroxine increased to 100 mcg daily; question patient's compliance with medication #BPH: Continue home finasteride 5 mg. #GERD: Continue home PPI. DNR/DNI Diabetic diet Xarelto
[2025-05-15 00:45] LABS: Reflex Lactic Add Lactic Reflex
[2025-05-15 00:49] LABS: POC Glucose,Bedside 182 (70-110)
[2025-05-15 01:20] LABS: Lactic Acid Follow Up (RFLX 1) 1.0 mmol/L (0.7-2.1)
[2025-05-15 01:33] LABS: Troponin I 0.05 ng/ml (0.00-0.034)
[2025-05-15 04:38] LABS: POC Glucose,Bedside 111 (70-110)
[2025-05-15 05:34] LABS: Hematocrit 34.3 % (42.0-52.0); Hemoglobin 12.2 g/dL (14.1-18.0); Immature Granulocytes % 1.1 %; Mean Corpuscular HGB Conc 35.6 g/dL (31.8-35.4); Mean Corpuscular Hemoglobin 30.5 pg (27.0-31.2); Mean Corpuscular Volume 85.8 fl (80-94); Nucleated Red Blood Cells % 0 %; Platelet Count 210 K/mm3 (142-424); Red Blood Count 4.00 M/mm3 (4.60-6.20); Red Cell Distribution Width-SD 47.6 fL; White Blood Count 9.3 K/mm3 (4.8-10.8)
[2025-05-15 06:06] LABS: Troponin I 0.05 ng/ml (0.00-0.034)
[2025-05-15 06:07] LABS: Albumin Level 3.6 g/dl (3.5-5.0)
[2025-05-15 06:08] LABS: Chloride 91 mmol/L (98-107); Potassium 3.9 mmoL/L (3.5-5.1); Sodium 127 mmol/L (136-145)
[2025-05-15 06:10] LABS: Alanine Aminotransferase 42 U/L (12-78); Aspartate Amino Transferase 31 U/L (17-59); Blood Urea Nitrogen 54 mg/dl (9-20); Creatinine Clearance Estimated 31 mL/min (50-200); Creatinine,Serum 2.50 mg/dl (0.66-1.25); Estimated Glomerular Filt Rate 25 ml/min (>60); GFR (African American) 31 ML/MIN (>60)
[2025-05-15 06:11] LABS: Albumin/Globulin Ratio 1.2 (1.1-1.8); Alkaline Phosphatase 165 U/L (38-126); Anion Gap 10.9 mEq/L (5-15); Bilirubin,Total 0.5 mg/dl (0.2-1.3); Calcium 9.0 mg/dl (8.4-10.2); Carbon Dioxide 29 mmol/L (22.0-30.0); Globulin 2.9 g/dL (1.3-3.2); Glucose 113 mg/dl (74-100); Magnesium 2.3 mg/dl (1.6-2.3); Phosphorous 4.4 mg/dl (2.5-4.5); Total Protein,Serum 6.5 g/dl (6.3-8.2)
--- NOTE | 2025-05-15 06:39 | ECG_ITS ---
APPROVED REPORT Exam: Resting ECG HR:66 bpm ECG Measurements Heart Rate 66 AXES NV 133 P -8 QRSd 107 QRS 62 QT 460 T 185 QTc 473 Conclusion SINUS RHYTHM ANTERIOR MYOCARDIAL INFARCTION , PROBABLY RECENT [40+ ms Q WAVE AND/OR ST/T ABNORMALITY IN V3/V4] INFERIOR MYOCARDIAL INFARCTION , OF INDETERMINATE AGE [40+ ms Q WAVE AND/OR ST/T ABNORMALITY IN II/aVF] ACUTE WA UNCONFIRMED REPORT Electronically signed by : Roc Fajardo MD 05/16/2025 08:55:20
[2025-05-15 06:54] LABS: Lactate Venous 1.8 mmol/L (0.4-2.0); VBG HCO3 28.0 mmol/L (23-30); VBG PCO2 34.4 mmol/L (35-51); VBG PH 7.53 mmol/L (7.31-7.41); VBG PO2 70.8 mmol/L (28-40)
[2025-05-15 08:25] LABS: POC Glucose,Bedside 216 (70-110)
[2025-05-15] MEDS: humaLOG 100 UNITS/ML 10ML VIAL (SSI) SUBCUT ×4 (08:58→20:40)
[2025-05-15] MEDS: FAMOTIDINE 20MG/2ML VIAL 20 MG IV (08:58)
--- NOTE | 2025-05-15 09:00 | PC.NURSE ---
Per , Cardiology can be consulted tomorrow. Continuation of care plan.
--- NOTE | 2025-05-15 09:10 | P.PN_ITS ---
Subjective *Date: 05/15/25 *Time: 12:54 Interval history: Feels well this morning. Denies chest pain or shortness of breath. No nausea or vomiting. No edema. Good color on exam. Afebrile Medical Exam Vital signs and Labs for Last 24 Hours: Vital Signs Temp Pulse Pulse Resp BP BP Pulse Ox 05/15/25 08:00 67 17 129/62 97 05/15/25 08:00 65 05/15/25 07:38 97 05/15/25 07:00 65 16 119/63 98 05/15/25 06:50 05/15/25 06:00 64 19 104/44 L 96 05/15/25 05:00 61 18 107/67 L 95 05/15/25 05:00 05/15/25 05:00 61 19 107/67 L 96 05/15/25 04:00 66 05/15/25 04:00 62 16 106/46 L 96 05/15/25 04:00 97 05/15/25 04:00 98.1 F 64 16 106/46 L 97 05/15/25 03:00 66 12 99/44 L 98 05/15/25 03:00 05/15/25 03:00 66 12 99/44 L 98 05/15/25 02:00 63 12 123/63 05/15/25 01:00 05/15/25 01:00 67 12 107/53 L 97 05/15/25 00:00 72 14 99/72 L 99 05/15/25 00:00 63 98 05/15/25 00:00 98 05/15/25 00:00 98.3 F 63 17 99/72 L 98 05/15/25 00:00 70 05/14/25 23:38 97.6 F 70 13 124/67 99 05/14/25 23:18 98 F 63 17 129/69 05/14/25 22:54 05/14/25 20:31 98 F 80 18 156/84 H 100 O2 Del Method O2 Flow Rate 05/15/25 08:00 05/15/25 08:00 05/15/25 07:38 Room Air 05/15/25 07:00 Room Air 05/15/25 06:50 Room Air 05/15/25 06:00 Room Air 05/15/25 05:00 05/15/25 05:00 Room Air 05/15/25 05:00 Room Air 05/15/25 04:00 05/15/25 04:00 Room Air 05/15/25 04:00 Room Air 05/15/25 04:00 Room Air 05/15/25 03:00 05/15/25 03:00 Room Air 05/15/25 03:00 Room Air 05/15/25 02:00 Room Air 98 05/15/25 01:00 Room Air 05/15/25 01:00 Room Air 05/15/25 00:00 05/15/25 00:00 Room Air 05/15/25 00:00 Room Air 05/15/25 00:00 Room Air 05/15/25 00:00 05/14/25 23:38 Room Air 05/14/25 23:18 Room Air 05/14/25 22:54 Room Air 05/14/25 20:31 Room Air Intake and Output 05/14/25 05/15/25 05/15/25 23:59 07:59 15:59 Intake Total 120 / 120 Output Total 300 / 900 900 / 900 0 / 900 Balance -300 / -900 -780 / -780 0 / -780 Intake: Intake, Oral Amount 120 / 120 Output: Output, Urine Amount 300 / 900 900 / 900 0 / 900 Other: Number of Unmeasured Voids 2 Number of Bowel Movements 2 Weight 82.1 kg 82.1 kg Patient Weight 05/15/25 23:59 Weight 82.1 kg Laboratory Results - last 24 hr 05/14/25 20:34: WBC 8.7, RBC 4.13 L, Hgb 12.1 L, Hct 35.9 L, MCV 86.9, MCH 29.3, MCHC 33.7, RDW 15.4, Plt Count 242, MPV 10.0, Neut % (Auto) 69.5, Lymph % (Auto) 18.4, [place] % (Auto) 9.3, Eos % (Auto) 1.6, Baso % (Auto) 0.3, Neut # (Auto) 6.1, Lymph # (Auto) 1.6, [place] # (Auto) 0.8, Eos # (Auto) 0.1, Baso # (Auto) 0.0, Sodium 123 L, Potassium 4.4, Chloride 87 L, Carbon Dioxide 26, Anion Gap 14.4, BUN 53 H, Creatinine 2.60 H, Estimated Creat Clear 29, Estimated GFR 24 L, Est GFR ( Amer) 29 L, Glucose 597 H*, Calcium 8.7, Phosphorus 4.3, Magnesium 2.1, Total Bilirubin 0.6, AST 36, ALT 48, Alkaline Phosphatase 401 H, Total Protein 7.2, Albumin 4.1, Globulin 3.1, Albumin/Globulin Ratio 1.3 05/14/25 20:36: Hemoglobin A1c 11.3 H, Troponin I 0.05 H 05/14/25 20:39: VBG pH 7.42 H, VBG pCO2 41.7, VBG pO2 53.1 H, VBG HCO3 26.7, VBG Total CO2 28.0 H, VBG O2 Saturation 87.3 H, VBG Base Excess 2.3, VBG Lactic Acid 2.6 H 05/14/25 21:35: Urine Color Yellow, Urine Appearance Clear, Urine pH 6.0, Ur Specific [place] <= 1.005, Urine Protein Negative, Urine Glucose (UA) 3+, Urine Ketones Negative, Urine Blood Negative, Urine Nitrate Negative, Urine Bilirubin Negative, Urine Urobilinogen 0.2, Ur Leukocyte Esterase Negative, Urine RBC None, Urine WBC None, Ur Squamous Epith Cells Occasional, Urine Bacteria None 05/14/25 23:54: POC Glucose 302 H* 05/15/25 00:41: POC Glucose 182 H, Lactate 1.0, Troponin I 0.05 H 05/15/25 04:32: POC Glucose 111 H 05/15/25 05:11: WBC 9.3, RBC 4.00 L, Hgb 12.2 L, Hct 34.3 L, MCV 85.8, MCH 30.5, MCHC 35.6 H, RDW 15.2, Plt Count 210, MPV 9.7, Neut % (Auto) 66.9, Lymph % (Auto) 18.2, [place] % (Auto) 10.9 H, Eos % (Auto) 2.4, Baso % (Auto) 0.5, Neut # (Auto) 6.2, Lymph # (Auto) 1.7, [place] # (Auto) 1.0, Eos # (Auto) 0.2, Baso # (Auto) 0.1, Sodium 127 L, Potassium 3.9, Chloride 91 L, Carbon Dioxide 29, Anion Gap 10.9, BUN 54 H, Creatinine 2.50 H, Estimated Creat Clear 31, Estimated GFR 25 L, Est GFR ( Amer) 31 L, Glucose 113 H D, Calcium 9.0, Phosphorus 4.4, Magnesium 2.3, Total Bilirubin 0.5, AST 31, ALT 42, Alkaline Phosphatase 165 H, Troponin I 0.05 H, Total Protein 6.5, Albumin 3.6 D, Globulin 2.9, Albumin/Globulin Ratio 1.2 05/15/25 06:55: VBG pH 7.53 H, VBG pCO2 34.4 L, VBG pO2 70.8 H, VBG HCO3 28.0, VBG Total CO2 29.0 H, VBG O2 Saturation 94.6 H, VBG Base Excess 5.2 H, VBG Lactic Acid 1.8 05/15/25 08:13: POC Glucose 216 H I & O for Labs for Last 24 Hours: Intake & Output 05/12/25 05/13/25 05/14/25 05/15/25 23:59 23:59 23:59 23:59 Intake Total 120 / 120 Output Total 300 / 900 900 / 900 Balance -300 / -900 -780 / -780 Weight 82.1 kg 82.1 kg Constitutional: Present no acute distress, average body habitus, chronically ill appearing and cooperative Head: Present atraumatic and normocephalic ENT: Present normal exam Respiratory: Present normal respiratory effort; Absent rhonchi, wheezes or crackles Cardiac: Present Reg Rate and Rhythm GI: Present soft, distention and normal bowel sounds; Absent tenderness Extremities: Present normal inspection and full ROM; Absent edema Skin: Present intact; Absent erythema, pallor or mottling Neuro: Present Grossly Intact, alert, awake, oriented x 3 and moves all extremi ties Assessment and Plan *Assessment and plan (1) Hyperglycemia: Status: Acute Category: Medical Code(s): R73.9 - Hyperglycemia, unspecified (2) Uncontrolled type 2 diabetes mellitus: Status: Acute Qualifiers: Glycemic state: with hyperglycemia Qualified Code(s): E11.65 - Type 2 diabetes mellitus with hyperglycemia Category: Medical (3) Ischemic cardiomyopathy: Status: Acute Category: Medical Code(s): I25.5 - Ischemic cardiomyopathy (4) Hyponatremia: Status: Acute Category: Medical Code(s): E87.1 - Hypo-osmolality and hyponatremia (5) HFrEF (heart failure with reduced ejection fraction): Status: Chronic Category: Medical Code(s): I50.20 - Unspecified systolic (congestive) heart failure (6) Hypothyroidism (acquired): Status: Chronic Category: Medical Code(s): E03.9 - Hypothyroidism, unspecified (7) CKD stage 4 due to type 2 diabetes mellitus: Status: Chronic Category: Medical Code(s): E11.22 - Type 2 diabetes mellitus with diabetic chronic kidney disease; N18.4 - Chronic kidney disease, stage 4 (severe) (8) Coronary artery disease: Status: Chronic Qualifiers: Coronary Disease-Associated Artery/Lesion type: bypass graft [place] vs. transplanted heart: [place] heart Associated angina: with other forms of angina Qualified Code(s): I25.708 - Atherosclerosis of coronary artery bypass graft(s), unspecified, with other forms of angina pectoris Category: Medical Code(s): I25.10 - Atherosclerotic heart disease of [place] coronary artery without angina pectoris Plan Zackary Carrasco is a 74-year-old male with a medical history significant for A-fib, HFrEF, CAD/CABG, NSTEMI, CKD stage IV, hypertension, type 2 diabetes, BPH, GERD who presents with uncontrolled diabetes. Ran out of his insulin. Discussed case with ER physician, request admission for hyperglycemia, electrolyte disturbances, in the setting of a patient with severe heart failure and weakness. Medicine agreed to admit for further management and resumption of insulin. Problems addressed as follows: Hyperglycemia Type 2 diabetes -A1c obtained, worsening at 11.3. - Resume basal insulin glargine 30 units nightly. Continue sliding scale high intensity. Fingersticks ACHS. - Monitor for short acting needs. Concern that patient is not complying with his regimen given the worsening A1c over the past 4 months. - Morning glucose 113 #chronic HFrEF Hypertension CAD status post CABG 2017, LUKE 2021. ? Shortness of breath stable, BNP improving from last admission at 8000. - Resume home regimen of amiodarone 200 mg daily, Bumex 2 mg twice daily, Lipitor 40 mg nightly, Plavix 75 mg daily, dapagliflozin 10 mg daily, hydralazine 20 mg 3 times a day, isosorbide 20 mg 3x today, metoprolol succinate 25mg daily - Does not appear in exacerbation at this time - echocardiogram obtained 02/02 showing EF of 10 to 15% #CKD stage IV #Hyperkalemia - Bilateral renals were normal on cath 12/2024 - Baseline creatinine 2.2-2.4. Creatinine 2.5, BUN 54. More or less his baseline. Magnesium 2.3 and potassium 3.9. Renally dose medications. Repeat CBC, CMP, magnesium ordered for the morning #Hypothyroidism: TSH increased at 20 on 05/13. Levothyroxine increased to 100 mcg daily; question patient's compliance with medication #BPH: Continue home finasteride 5 mg. #GERD: Continue home PPI. DNR/DNI Diabetic diet
--- NOTE | 2025-05-15 09:33 | PC.NURSE ---
Report called to LUIS Chapin on Medical Surgical floor.
--- NOTE | 2025-05-15 09:44 | PC.NURSE ---
Patient transferred to Medical Surgical room 200 by ICU staff at this time.
--- NOTE | 2025-05-15 09:50 | PC.NURSE ---
Pt. to the floor and given a urinal, bed alarm active.
--- NOTE | 2025-05-15 10:12 | [facility].PHAINT1 ---
Pharmacy Intervention Comments: MEDICATION RECONCILIATION COMPLETED ON PATIENT USING EXTERNAL FILL HISTORY FROM PHARMACY AND LIST FROM CARDIOLOGY/PCP OFFICES. -LAMAR HERMAND
[2025-05-15] MEDS: CLOPIDOGREL 75MG TAB 75 MG PO (10:14)
[2025-05-15] MEDS: LEVOTHYROXINE 100MCG (0.1MG) TAB 100 MCG PO (10:14)
[2025-05-15] MEDS: DAPAGLIFLOZIN PROPANEDIOL 10 MG TABLET PO (10:14)
[2025-05-15] MEDS: BUMETANIDE 1 MG TABLET 2 MG PO ×2 (10:14→16:29)
[2025-05-15 11:09] LABS: POC Glucose,Bedside 239 (70-110)
[2025-05-15] MEDS: HYDRALAZINE 10MG TABLET 20 MG PO ×2 (12:00→20:39)
[2025-05-15] MEDS: ISOSORBIDE DINITRATE 20 MG TABLET PO ×2 (13:43→20:39)
[2025-05-15 14:39] LABS: Troponin I 0.04 ng/ml (0.00-0.034)
--- NOTE | 2025-05-15 15:05 | PC.NURSE ---
Aox4, up with assistance times one with walker, using urinal, bed alarm active, on tele, CPOX 98% on RA, DNR/DNI, EKG NSR, on plavix, 20g R ac sl, Diabetic diet, consult to cardiology, fsbg achs.
[2025-05-15 16:37] LABS: POC Glucose,Bedside 282 (70-110)
[2025-05-15 17:01] LABS: Troponin I 0.04 ng/ml (0.00-0.034)
[2025-05-15] MEDS: OXYMETAZOLINE NASAL SPRAY 0.05% 15ML 2 ML NS (20:38)
[2025-05-15] MEDS: INSULIN GLARGINE 100 UNITS/ML 3ML FLEXPEN 30 UNIT SUBCUT (20:39)
[2025-05-15] MEDS: ATORVASTATIN 40MG TABLET 40 MG PO (20:39)
[2025-05-16] VITALS: BP 110/55; PULSE 77; PULSE 80; RESP 16; TEMP 36.7; O2SAT 98
[2025-05-16] MEDS: ONDANSETRON 4MG/2ML VIAL 4 MG IV (01:56)
--- NOTE | 2025-05-16 03:48 | PC.NURSE ---
Pt A&OX4 and has tolerated room air. Lung sounds clear and bowel sounds active. He has complained of nausea once this shift and was medicated per MAR. He has remained in a first degree block on tele. He has voided per urinal. He is currently resting in bed with call light within reach.
[2025-05-16 04:00] VITALS: BP 99/47; PULSE 68; PULSE 70; RESP 16; TEMP 36.6; O2SAT 97; BMI 25.8
[2025-05-16] MEDS: LEVOTHYROXINE 100MCG (0.1MG) TAB 100 MCG PO (06:04)
[2025-05-16 06:18] LABS: POC Glucose,Bedside 355 (70-110)
[2025-05-16 06:18] LABS: POC Glucose,Bedside 103 (70-110)
[2025-05-16 07:11] LABS: Hematocrit 37.0 % (42.0-52.0); Hemoglobin 12.8 g/dL (14.1-18.0); Immature Granulocytes % 0.8 %; Mean Corpuscular HGB Conc 34.6 g/dL (31.8-35.4); Mean Corpuscular Hemoglobin 30.0 pg (27.0-31.2); Mean Corpuscular Volume 86.7 fl (80-94); Nucleated Red Blood Cells % 0 %; Platelet Count 227 K/mm3 (142-424); Red Blood Count 4.27 M/mm3 (4.60-6.20); Red Cell Distribution Width-SD 48.2 fL; White Blood Count 9.2 K/mm3 (4.8-10.8)
[2025-05-16 07:28] VITALS: BP 109/57; PULSE 76; RESP 20; TEMP 36.8; O2SAT 96
--- NOTE | 2025-05-16 07:31 | EXP.DC.SUM ---
General Admission date:: 05/14/25 Discharge date: 05/16/25 HPI HPI HPI: Mr. Carrasco tells me that he does not feel very well at this time.. That there is not anything specific that he does know his blood sugar has just kept increasing. Also he recently was increased on his thyroid medicine as his TSH is close to 20. Labs have now showed he has fairly significant hyponatremia with low chloride with renal insufficiency and blood sugars greater than 500. Troponin slightly elevated TSH around 20. Patient is noted is having a cardiomegaly on top of this. My notes I found an ejection fraction of 35% but patient tells me his last evaluation his ejection fraction is 10%. He is post CABG and his last scan showed mild ascites in the abdomen. After talking with the ER doctor feel go ahead and place him into the unit. Radiology consult, try to slowly bring his blood sugar back down to a normal level continue his home meds hoping that his thyroid medication will return him to a normal TSH. I have talked to the patient he wants to be a DNR DNI. Noting his chest x-ray basically besides a mildly to moderate cardiac enlargement of the left ventricle lungs were clear., Blood sugar has been over 500 at 1 time. Will continue to try to get this down to an acceptable level and keep it there. Hospital Course Hospital Course Hospital Course: Zackary Carrasco is a 74-year-old male with a medical history significant for A-fib, HFrEF, CAD/CABG, NSTEMI, CKD stage IV, hypertension, type 2 diabetes, BPH, GERD who presents with uncontrolled diabetes. Ran out of his insulin. Discussed case with ER physician, request admission for hyperglycemia, electrolyte disturbances, in the setting of a patient with severe heart failure and weakness. Medicine agreed to admit for further management and resumption of insulin. Romance better after improvement in glucose. CHF stable with no exacerbation. Stable to [place] home with outpt follow-up. Problems addressed as follows: Hyperglycemia Type 2 diabetes -A1c obtained, worsening at 11.3. Resume basal insulin glargine 30 units nightly. Continue sliding scale high intensity. Fingersticks ACHS during admission. Blood sugar better during admission. Will increase basal to 35 units daily with resumption of lispro 40units BID. Morning glucose of 113 on morning of discharge. needs repeat A1C in 3 months. #chronic HFrEF Hypertension CAD status post CABG 2017, LUKE 2021. ? Shortness of breath stable, BNP improving from last admission at 8000. Resumed home regimen of amiodarone 200 mg daily, Bumex 2 mg twice daily, Lipitor 40 mg nightly, Plavix 75 mg daily, dapagliflozin 10 mg daily, hydralazine 20 mg 3 times a day, isosorbide 20 mg 3x today, metoprolol succinate 25mg daily. Does not appear in exacerbation at this time. Cardiology evaluated to ooptimize meds. No changes at this time. Echocardiogram obtained 02/02 showing EF of 10 to 15% #CKD stage IV #Hyperkalemia - Bilateral renals were normal on cath 12/2024. Baseline creatinine 2.2-2.4. Creatinine 2.5, BUN 54 during admission. More or less his baseline. Magnesium 2.3 and potassium 3.9. Renally dosed medications. #Hypothyroidism: TSH increased at 20 on 05/13. Levothyroxine increased to 100 mcg daily; question patient's compliance with medication #BPH: Continue home finasteride 5 mg. #GERD: Continue home PPI. Total time spent on discharge 34 minutes in counseling, documentation, chart review, and direct care with patient. Exam Data for Last 24 hours Vital signs and Labs for Last 24 Hours: Temp Pulse Resp BP Pulse Ox O2 Del Method O2 Flow Rate 98.2 F 76 20 109/57 L 96 Room Air 98 05/16/25 07:28 05/16/25 07:28 05/16/25 07:28 05/16/25 07:28 05/16/25 07:28 05/16/25 07:28 05/15/25 02:00 Laboratory Results - last 24 hr 05/15/25 08:13: POC Glucose 216 H 05/15/25 10:53: POC Glucose 239 H 05/15/25 13:55: Troponin I 0.04 H 05/15/25 16:10: Troponin I 0.04 H 05/15/25 16:31: POC Glucose 282 H 05/15/25 20:37: POC Glucose 355 H* 05/16/25 06:03: POC Glucose 103 05/16/25 06:47: WBC 9.2, RBC 4.27 L, Hgb 12.8 L, Hct 37.0 L, MCV 86.7, MCH 30.0, MCHC 34.6, RDW 15.3, Plt Count 227, MPV 9.8, Neut % (Auto) 70.3, Lymph % (Auto) 16.4, [place] % (Auto) 10.5 H, Eos % (Auto) 1.6, Baso % (Auto) 0.4, Neut # (Auto) 6.5, Lymph # (Auto) 1.5, [place] # (Auto) 1.0, Eos # (Auto) 0.2, Baso # (Auto) 0.0 I & O for Last 24 hours: Intake & Output 05/13/25 05/14/25 05/15/25 05/16/25 23:59 23:59 23:59 23:59 Intake Total 1090 / 1090 Output Total 300 / 900 2950 / 3250 900 / 900 Balance -300 / -900 -1860 / -2160 -900 / -900 Weight 82.1 kg 82.1 kg 79.067 kg Microbiology Reports for the Last 24 Hours: Microbiology 05/14/25 21:26 Blood Blood Culture - Preliminary NO GROWTH AFTER 24 HOURS 05/14/25 20:33 Blood Blood Culture - Preliminary NO GROWTH AFTER 24 HOURS Constitutional Constitutional: no acute distress, average body habitus, chronically ill appearing and cooperative *Routine HEENT Exam Head: Present normocephalic and atraumatic ENT: Present mucous membranes moist *Routine Neck Exam Neck: Present supple, full ROM and normal carotid upstroke; Absent JVD, carotid bruit or lymphadenopathy *Routine Respiratory Exam Respiratory: Present CTA bilaterally, normal respiratory effort, able to speak in complete sentences and symmetric chest movement; Absent rhonchi *Routine Cardiovascular Exam Cardiovascular: Present RRR, Normal S1, Normal S2 and tachycardia; Absent murmur or gallop *Routine Abdominal Exam Abdominal: Present soft and normoactive bowel sounds; Absent tenderness, distended or organomegaly *Routine Rectal Exam Patient deferred: visual exam *Routine Exam Patient deferred: penile exam *Routine Extremities Exam Extremities: Present full ROM, pulses intact and normal capillary refill; Absent cyanosis, clubbing or edema *Routine Skin Exam Skin: Present intact and warm; Absent erythema *Routine Neurological Exam Neurological: Present alert, oriented X3, CN II-XII intact and moving all extremities; Absent sensory deficit, motor deficit or altered mental status Routine Psychiatric Exam Psychiatric: Present normal affect Results Data Completed and Pending Labs on day of discharge: Labs from last 24 hours 05/16/25 05/16/25 05/15/25 06:47 06:03 20:37 WBC 9.2 RBC 4.27 L Hgb 12.8 L Hct 37.0 L MCV 86.7 MCH 30.0 MCHC 34.6 RDW 15.3 Plt Count 227 MPV 9.8 Neut % (Auto) 70.3 Lymph % (Auto) 16.4 [place] % (Auto) 10.5 H Eos % (Auto) 1.6 Baso % (Auto) 0.4 Neut # (Auto) 6.5 Lymph # (Auto) 1.5 [place] # (Auto) 1.0 Eos # (Auto) 0.2 Baso # (Auto) 0.0 POC Glucose 103 355 H* Troponin I 05/15/25 05/15/25 05/15/25 16:31 16:10 13:55 WBC RBC Hgb Hct MCV MCH MCHC RDW Plt Count MPV Neut % (Auto) Lymph % (Auto) [place] % (Auto) Eos % (Auto) Baso % (Auto) Neut # (Auto) Lymph # (Auto) [place] # (Auto) Eos # (Auto) Baso # (Auto) POC Glucose 282 H Troponin I 0.04 H 0.04 H 05/15/25 05/15/25 10:53 08:13 WBC RBC Hgb Hct MCV MCH MCHC RDW Plt Count MPV Neut % (Auto) Lymph % (Auto) [place] % (Auto) Eos % (Auto) Baso % (Auto) Neut # (Auto) Lymph # (Auto) [place] # (Auto) Eos # (Auto) Baso # (Auto) POC Glucose 239 H 216 H Troponin I Preliminary micro results at discharge 05/14/25 21:26 Blood Culture - Preliminary Blood NO GROWTH AFTER 24 HOURS 05/14/25 20:33 Blood Culture - Preliminary Blood NO GROWTH AFTER 24 HOURS DS: Diagnosis Discharge Diagnosis (1) Hyperglycemia: Status: Acute Code(s): R73.9 - Hyperglycemia, unspecified (2) Uncontrolled type 2 diabetes mellitus: Status: Acute Qualifiers: Glycemic state: with hyperglycemia Qualified Code(s): E11.65 - Type 2 diabetes mellitus with hyperglycemia (3) Ischemic cardiomyopathy: Status: Acute Code(s): I25.5 - Ischemic cardiomyopathy (4) Hyponatremia: Status: Acute Code(s): E87.1 - Hypo-osmolality and hyponatremia (5) HFrEF (heart failure with reduced ejection fraction): Status: Chronic Code(s): I50.20 - Unspecified systolic (congestive) heart failure (6) Hypothyroidism (acquired): Status: Chronic Code(s): E03.9 - Hypothyroidism, unspecified (7) CKD stage 4 due to type 2 diabetes mellitus: Status: Chronic Code(s): E11.22 - Type 2 diabetes mellitus with diabetic chronic kidney disease; N18.4 - Chronic kidney disease, stage 4 (severe) (8) Coronary artery disease: Status: Chronic Code(s): I25.10 - Atherosclerotic heart disease of [place] coronary artery without angina pectoris Qualifiers: Associated angina: with other forms of angina Coronary Disease-Associated Artery/Lesion type: bypass graft [place] vs. transplanted heart: [place] heart Qualified Code(s): I25.708 - Atherosclerosis of coronary artery bypass graft(s), unspecified, with other forms of angina pectoris Meds Home Medications and Allergies Home Medications ?Medication ?Instructions ?Recorded ?Confirmed ?Type acetaminophen 500 mg tablet 500 mg PO Q6HP PRN Mild Pain 03/08/25 05/19/25 History (Scale Score 1-4) atorvastatin 40 mg tablet 40 mg PO HS #90 tabs 03/14/25 05/19/25 Rx clopidogrel 75 mg tablet 75 mg PO DAILY #90 tabs 03/14/25 05/19/25 Rx omeprazole 40 mg capsule,delayed 40 mg PO DAILY #90 caps 03/14/25 05/19/25 Rx release bumetanide 2 mg tablet 2 mg PO BID 30 days #60 tabs 04/05/25 05/19/25 Rx ferrous sulfate 325 mg (65 mg 325 mg PO DAILY #90 tabs 04/05/25 05/19/25 Rx iron) tablet isosorbide dinitrate 20 mg tablet 20 mg PO TID 30 days #90 tabs 04/05/25 05/19/25 Rx dapagliflozin propanediol 10 mg 10 mg PO DAILY #30 tabs 04/06/25 05/19/25 Rx tablet (Farxiga) metoprolol succinate 25 mg 25 mg PO DAILY #30 tabs 04/06/25 05/19/25 Rx tablet,extended release 24 hr hydralazine 10 mg tablet 20 mg (2 x 10 mg) PO TID 30 days 04/22/25 05/19/25 Rx #180 tabs levothyroxine 100 mcg tablet 100 mcg PO DAILY #90 tabs 04/22/25 05/19/25 Rx amiodarone 200 mg tablet 200 mg PO DAILY 30 days #30 tabs 05/12/25 05/19/25 Rx blood-glucose sensor (Dexcom G6 #9 ea 05/14/25 05/19/25 Rx Sensor device) blood-glucose transmitter (Dexcom #1 ea 05/14/25 05/19/25 Rx G6 Transmitter device) blood-glucose,ocean export account manager,cont #1 ea 05/14/25 05/19/25 Rx (Dexcom G6 Property Technician) insulin lispro 100 unit/mL 40 unit SQ TID 05/15/25 05/19/25 History subcutaneous pen (Humalog KwikPen (U-100) Insulin) rivaroxaban 15 mg tablet (Xarelto) 15 mg PO QPMWITHMEAL 05/15/25 05/19/25 History insulin glargine 100 unit/mL 35 unit (0.35 mL) SQ HS 30 days #0 05/16/25 05/19/25 Rx subcutaneous solution (Lantus mL U-100 Insulin) New Prescriptions to Start Prescriptions: Allergies Allergy/AdvReac Type Severity Reaction Status Date / Time amoxicillin Allergy Rash Verified 05/13/25 14:58 Penicillins Allergy Rash Verified 05/13/25 14:58 Discharge Plan Disposition Patient Disposition: Home, Self-Care Condition: Fair Follow up Plan Follow up with: Marielos Amaral APRN [Primary Care Provider, Medical] - 05/23/25 1:30 pm Gregory Worthington PA [Physician Pin Pusher, Cardiology] - 05/31/25 2:30 pm Prescriptions/Medication Reconciliation: Continued levothyroxine 100 mcg tablet 100 mcg PO DAILY Qty: 90 2RF metoprolol succinate 25 mg tablet extended release 24 hr 25 mg PO DAILY Qty: 30 2RF dapagliflozin propanediol [Farxiga] 10 mg tablet 10 mg PO DAILY Qty: 30 2RF acetaminophen 500 mg tablet 500 mg PO Q6HP PRN (Reason: Mild Pain (Scale Score 1-4)) atorvastatin 40 mg tablet 40 mg PO HS Qty: 90 3RF clopidogrel 75 mg tablet 75 mg PO DAILY Qty: 90 1RF omeprazole 40 mg capsule,delayed release(DR/EC) 40 mg PO DAILY Qty: 90 1RF (DME) Dexcom G6 Sensor Device See Rx Instructions .Route Qty: 9 3RF Rx Instructions: As directed (DME) Dexcom G6 Property Technician Misc See Rx Instructions .Route Qty: 1 0RF Rx Instructions: As directed (DME) Dexcom G6 Transmitter Device See Rx Instructions .Route Qty: 1 0RF Rx Instructions: As directed bumetanide 2 mg tablet 2 mg PO BID 30 Days Qty: 60 0RF ferrous sulfate 325 mg (65 mg iron) tablet 325 mg PO DAILY Qty: 90 0RF isosorbide dinitrate 20 mg tablet 20 mg PO TID 30 Days Qty: 90 0RF hydralazine 10 mg tablet 20 mg PO TID 30 Days Qty: 180 0RF Rx Instructions: Hold if SBP < 100. amiodarone 200 mg tablet 200 mg PO DAILY 30 Days Qty: 30 5RF insulin lispro [Humalog KwikPen Insulin] 100 unit/mL insulin pen 40 unit SQ TID Xarelto 15 mg tablet 15 mg PO QPMWITHMEAL Patient Comments: TAKE 1 TABLET BY MOUTH ONCE A DAY with evening meal Changed insulin glargine [Lantus U-100 Insulin] 100 unit/mL solution 35 unit SQ HS 30 Days Qty: 0 0RF Problem Reconciliation Problems Reviewed?: Yes Patient Discharge Instructions ACTIVITY: Continue current activity DIET: continue same diet Print Language: Kyrgyz Providers Primary Care Provider: Marielos Amaral Admit Provider: Kurt Lagos Attending Provider: Kurt Lagos
[2025-05-16 07:33] LABS: Albumin Level 4.0 g/dl (3.5-5.0); Chloride 93 mmol/L (98-107); Sodium 133 mmol/L (136-145)
[2025-05-16 07:34] LABS: Potassium 3.8 mmoL/L (3.5-5.1)
[2025-05-16 07:36] LABS: Alanine Aminotransferase 42 U/L (12-78); Albumin/Globulin Ratio 1.2 (1.1-1.8); Alkaline Phosphatase 114 U/L (38-126); Anion Gap 12.8 mEq/L (5-15); Aspartate Amino Transferase 34 U/L (17-59); Bilirubin,Total 0.5 mg/dl (0.2-1.3); Blood Urea Nitrogen 56 mg/dl (9-20); Calcium 9.0 mg/dl (8.4-10.2); Carbon Dioxide 31 mmol/L (22.0-30.0); Creatinine Clearance Estimated 25 mL/min (50-200); Creatinine,Serum 3.00 mg/dl (0.66-1.25); Estimated Glomerular Filt Rate 21 ml/min (>60); GFR (African American) 25 ML/MIN (>60); Globulin 3.3 g/dL (1.3-3.2); Glucose 104 mg/dl (74-100); Total Protein,Serum 7.3 g/dl (6.3-8.2)
[2025-05-16 07:37] LABS: Magnesium 2.2 mg/dl (1.6-2.3)
[2025-05-16] MEDS: AMIODARONE 200MG TABLET 200 MG PO (08:28)
[2025-05-16] MEDS: BUMETANIDE 1 MG TABLET 2 MG PO (08:28)
[2025-05-16] MEDS: HYDRALAZINE 10MG TABLET 20 MG PO ×2 (08:29→13:31)
[2025-05-16] MEDS: METOPROLOL SUCCINATE XL 25MG TABLET 25 MG PO (08:29)
[2025-05-16] MEDS: ISOSORBIDE DINITRATE 20 MG TABLET PO ×2 (08:29→13:35)
[2025-05-16] MEDS: DAPAGLIFLOZIN PROPANEDIOL 10 MG TABLET PO (08:29)
[2025-05-16] MEDS: SODIUM CHLORIDE 0.9% 10ML VIAL 8 ML IV (08:29)
[2025-05-16] MEDS: CLOPIDOGREL 75MG TAB 75 MG PO (08:29)
[2025-05-16] MEDS: FAMOTIDINE 20MG/2ML VIAL 20 MG IV (08:29)
--- NOTE | 2025-05-16 11:11 | EXP.CARD.CON ---
History of Present Illness History of Present Illness Consult date: 05/16/25 Requesting physician: Kurt Lagos Consult reason: known to you Chief complaint: Uncontrolled diabetes Additional Medical History:: 1. CAD is present and likely stable. Medical management 12/2024 Medical mgt (09/2022) Hx of LUKE Hx of CABG (2016) On plavix 2. HTN- -limited Echo, 01/2025, EF 10-15%, no LV thrombus with definity contrast 3. HLD-on statin. LDL 54.59 (02/2025). On statin therapy 4. HFrEF is present. EF 10-15% (02/02/2025). On Bumex, Isordil and hydralazine. no DEVI, ARB, Arni or spironolactone due to renal function. Patient is not wearing the life vest, he is aware of the possibility of sudden cardiac Discussed defibrillator 5. CKD, stage 4 Cr 3.0, GFR 21, 05/2025 Renal angiogram patent bilateral renal arteries (sep 2022) 6. PAFib is NSR today On amiodarone on Xarelto for a/c. Hx of CVA History of present illness: 74-year-old white male well-known to us was admitted through the ER for increasing blood sugars with home reading of 795. Patient relates he was not feeling well and came to the ER for further evaluation. Ultimately he was admitted and started on appropriate diabetes medications with improvement in his blood sugars. He is feeling much better today and is ready to go home. Cardiology was consulted due to mildly elevated troponins which have just been on a plateau without rising or dropping. These had been persistently mildly elevated without increase or decrease since December of this year. He did undergo left heart catheterization in December with patent BLOOD to LAD, SVG to first diagonal, SVG to PDA with occluded SVG to circumflex. Renal arteries were normal with mildly elevated left filling pressure noted with pulmonary artery occlusion pressure noted to be 20 mmHg. Right heart cardiac cath in February of this year which showed low cardiac output and persistent biventricular failure. Patient has been seeing Dr. Locke with consideration of AICD implantation. Patient is clinically stable at this time from a cardiac standpoint and okay for discharge [facility] Disclaimer: The information contained in this section may have been updated after the patient was seen, as this information can be updated by other users. Medical History (Updated 05/15/25 @ 12:45 by Kurt Lagos MD) HFrEF (heart failure with reduced ejection fraction) Chest pain Calf cramp Elevated troponin New onset of congestive heart failure CHF (congestive heart failure) Sinus tachycardia Dyspnea B12 deficiency Painful urination Screening for prostate cancer Screening for HIV (human immunodeficiency virus) Encounter for HCV screening test for low risk patient Colon cancer screening Right flank pain Proteinuria Foreign body in left ear Hearing loss LOM (left otitis media) Dermatitis Tympanosclerosis, right ear Left serous otitis media Acute left otitis media Dizziness Otitis media Left elbow fracture Decreased mobility Right hip pain Acute cystitis without hematuria Dysuria Injury of left elbow Injury due to fall Left elbow pain Laceration of lip Inguinal hernia bilateral, non-recurrent Abnormal cardiovascular stress test PAF (paroxysmal atrial fibrillation) CKD stage 4 due to type 2 diabetes mellitus (~05/14/25) Typical angina Coronary artery disease Stroke Fall Head injury COVID-19 Surgical History History of tonsillectomy History of appendectomy Hx of cholecystectomy History of colonoscopy Presence of stent in coronary artery Hx of CABG Family History Other No significant family history Social History (Updated 05/15/25 @ 00:24 by Jazmin Brunson RN) Smoking Status: Former smoker tobacco type: cigarettes packs per day: 1 smoking status stop date: 10 years ago alcohol intake: never substance use type: denies use current occupational status: retired Travel in the last 8 weeks?: Inside the [place] household members: children housing: house marital status: legally current occupation: [employer] current occupational exposures/hazards: No caffeine: Yes Review of Systems Review of Systems Review of systems:: pertinent systems reviewed and negative unless documented below *Cardiovascular Cardiovascular: Denies chest pain, Reports dyspnea on exertion and Denies leg edema *Respiratory Respiratory: Denies cough and Reports dyspnea on exertion *Neurologic Neurologic: Reports as per HPI Exam Data for Last 24 hours Vital signs and Labs for Last 24 Hours: Temp Pulse Resp BP Pulse Ox O2 Del Method O2 Flow Rate 98.2 F 76 20 109/57 L 96 Room Air 98 05/16/25 07:28 05/16/25 07:28 05/16/25 07:28 05/16/25 07:28 05/16/25 07:28 05/16/25 09:00 05/15/25 02:00 Laboratory Results - last 24 hr 05/15/25 13:55: Troponin I 0.04 H 05/15/25 16:10: Troponin I 0.04 H 05/15/25 16:31: POC Glucose 282 H 05/15/25 20:37: POC Glucose 355 H* 05/16/25 06:03: POC Glucose 103 05/16/25 06:47: WBC 9.2, RBC 4.27 L, Hgb 12.8 L, Hct 37.0 L, MCV 86.7, MCH 30.0, MCHC 34.6, RDW 15.3, Plt Count 227, MPV 9.8, Neut % (Auto) 70.3, Lymph % (Auto) 16.4, [place] % (Auto) 10.5 H, Eos % (Auto) 1.6, Baso % (Auto) 0.4, Neut # (Auto) 6.5, Lymph # (Auto) 1.5, [place] # (Auto) 1.0, Eos # (Auto) 0.2, Baso # (Auto) 0.0, Sodium 133 L, Potassium 3.8, Chloride 93 L, Carbon Dioxide 31 H, Anion Gap 12.8, BUN 56 H, Creatinine 3.00 H, Estimated Creat Clear 25, Estimated GFR 21 L, Est GFR ( Amer) 25 L, Glucose 104 H, Calcium 9.0, Magnesium 2.2, Total Bilirubin 0.5, AST 34, ALT 42, Alkaline Phosphatase 114, Total Protein 7.3, Albumin 4.0 D, Globulin 3.3 H, Albumin/Globulin Ratio 1.2 I & O for Last 24 hours: Intake & Output 05/13/25 05/14/25 05/15/25 05/16/25 11:59 11:59 11:59 11:59 Intake Total 460 / 460 630 / 630 Output Total 1475 / 1675 2675 / 2675 Balance -1015 / -1215 -2044 / -2044 Weight 180 lb 15.992 oz 174 lb 5 oz Microbiology Reports for the Last 24 Hours: Microbiology 05/14/25 21:35 Urine,Clean Catch Urine Culture - Final No growth. 05/14/25 21:26 Blood Blood Culture - Preliminary NO GROWTH AFTER 24 HOURS 05/14/25 20:33 Blood Blood Culture - Preliminary NO GROWTH AFTER 24 HOURS Constitutional Constitutional: no acute distress *Routine Respiratory Exam Respiratory: Present CTA bilaterally *Routine Cardiovascular Exam Cardiovascular: Present RRR; Absent gallop or rubs *Routine Abdominal Exam Abdominal: Present normoactive bowel sounds *Routine Extremities Exam Extremities: Absent edema Meds Home Medications and Allergies Home Medications ?Medication ?Instructions ?Recorded ?Confirmed ?Type acetaminophen 500 mg tablet 500 mg PO Q6HP PRN Mild Pain 03/08/25 05/15/25 History (Scale Score 1-4) atorvastatin 40 mg tablet 40 mg PO HS #90 tabs 03/14/25 05/15/25 Rx clopidogrel 75 mg tablet 75 mg PO DAILY #90 tabs 03/14/25 05/15/25 Rx omeprazole 40 mg capsule,delayed 40 mg PO DAILY #90 caps 03/14/25 05/15/25 Rx release bumetanide 2 mg tablet 2 mg PO BID 30 days #60 tabs 04/05/25 05/15/25 Rx ferrous sulfate 325 mg (65 mg 325 mg PO DAILY #90 tabs 04/05/25 05/15/25 Rx iron) tablet isosorbide dinitrate 20 mg tablet 20 mg PO TID 30 days #90 tabs 04/05/25 05/15/25 Rx dapagliflozin propanediol 10 mg 10 mg PO DAILY #30 tabs 04/06/25 05/15/25 Rx tablet (Farxiga) metoprolol succinate 25 mg 25 mg PO DAILY #30 tabs 04/06/25 05/15/25 Rx tablet,extended release 24 hr hydralazine 10 mg tablet 20 mg (2 x 10 mg) PO TID 30 days 04/22/25 05/15/25 Rx #180 tabs levothyroxine 100 mcg tablet 100 mcg PO DAILY #90 tabs 04/22/25 05/15/25 Rx amiodarone 200 mg tablet 200 mg PO DAILY 30 days #30 tabs 05/12/25 05/15/25 Rx blood-glucose sensor (Dexcom G6 #9 ea 05/14/25 05/14/25 Rx Sensor device) blood-glucose transmitter (Dexcom #1 ea 05/14/25 05/14/25 Rx G6 Transmitter device) blood-glucose,image editor,cont #1 ea 05/14/25 05/14/25 Rx (Dexcom G6 Buffet Server) insulin lispro 100 unit/mL 40 unit SQ TID 05/15/25 05/15/25 History subcutaneous pen (Humalog KwikPen (U-100) Insulin) rivaroxaban 15 mg tablet (Xarelto) 15 mg PO QPMWITHMEAL 05/15/25 05/15/25 History insulin glargine 100 unit/mL 35 unit (0.35 mL) SQ HS 30 days #0 05/16/25 05/15/25 Rx subcutaneous solution (Lantus mL U-100 Insulin) New Prescriptions to Start Prescriptions: Allergies Allergy/AdvReac Type Severity Reaction Status Date / Time amoxicillin Allergy Rash Verified 05/13/25 14:58 Penicillins Allergy Rash Verified 05/13/25 14:58 Assessment and Plan *Assessment and plan (1) Uncontrolled type 2 diabetes mellitus: Status: Acute Qualifiers: Glycemic state: with hyperglycemia Qualified Code(s): E11.65 - Type 2 diabetes mellitus with hyperglycemia Category: Medical (2) Hyperglycemia: Status: Acute Category: Medical Code(s): R73.9 - Hyperglycemia, unspecified (3) Hyponatremia: Status: Acute Category: Medical Code(s): E87.1 - Hypo-osmolality and hyponatremia (4) Renal insufficiency: Status: Acute Category: Medical Code(s): N28.9 - Disorder of kidney and ureter, unspecified (5) HFrEF (heart failure with reduced ejection fraction): Status: Chronic Category: Medical Code(s): I50.20 - Unspecified systolic (congestive) heart failure (6) Ischemic cardiomyopathy: Status: Acute Category: Medical Code(s): I25.5 - Ischemic cardiomyopathy (7) CKD stage 4 due to type 2 diabetes mellitus: Status: Chronic Category: Medical Code(s): E11.22 - Type 2 diabetes mellitus with diabetic chronic kidney disease; N18.4 - Chronic kidney disease, stage 4 (severe) (8) Coronary artery disease: Status: Chronic Qualifiers: Associated angina: with other forms of angina Coronary Disease-Associated Artery/Lesion type: bypass graft [place] vs. transplanted heart: [place] heart Qualified Code(s): I25.708 - Atherosclerosis of coronary artery bypass graft(s), unspecified, with other forms of angina pectoris Category: Medical Code(s): I25.10 - Atherosclerotic heart disease of [place] coronary artery without angina pectoris (9) Hx of CABG: Status: Acute Category: Surgical Code(s): Z95.1 - Presence of aortocoronary bypass graft Plan 1. Type 2 diabetes mellitus with uncontrolled blood sugars on admission now controlled with resumption of insulin. -Hemoglobin A1c 11.3 this admission -On insulin, Farxiga 2. Hyponatremia, improved -Improved from 127-133 3. Chronic renal insufficiency/CKD stage IV -Creatinine 3 with GFR of 21 4. Chronic HFrEF/EF 10-15% -On Bumex, Farxiga, Isordil, Toprol and hydralazine -No DEVI/ARB/Arni due to CKD 5. History of A-fib, back in sinus rhythm on amiodarone therapy -On Xarelto therapy 6. CAD/history of CABG -[facility], 12/2024, 3 of 4 grafts patent -On statin and Plavix therapy Stable from a cardiac standpoint for discharge home. Follow-up next week with to discuss AICD implantation. Home medications: Amiodarone 200 mg daily Atorvastatin 40 mg daily Bumex 2 mg twice daily Plavix 75 mg daily Farxiga 10 mg daily Isordil 20 mg 3 times daily Metoprolol succinate 25 mg daily Xarelto 15 mg daily Hydralazine 20 mg 3 times daily
[2025-05-16] MEDS: humaLOG 100 UNITS/ML 10ML VIAL (SSI) SUBCUT (11:40)
[2025-05-16 11:52] LABS: POC Glucose,Bedside 219 (70-110)
--- NOTE | 2025-05-18 10:47 | SW/DCPLANNER ---
Phoned patient x2. Left message with call back name and number each time. Claus Trejo
== END 2025-05-16 13:45 | disposition home or self-care (01) ==
LOC: ER 20:44 → 2ND 22:46 → ICU 22:53 → 2ND 05-15 09:14
PROVIDERS: Nurse Practitioner Family; Admitting Provider Internal Medicine Adolescent Medicine; Emergency Provider Student in an Organized Health Care Education/Training Program; PCP Nurse Practitioner Family; Visit Provider Internal Medicine Adolescent Medicine
DX: E11.65 Type 2 diabetes mellitus with hyperglycemia (principal); I13.0 Hypertensive heart and chronic kidney disease with heart failure and stage 1 through stage 4 chronic kidney disease, or unspecified chronic kidney disease; E11.22 Type 2 diabetes mellitus with diabetic chronic kidney disease; I50.22 Chronic systolic (congestive) heart failure; I25.5 Ischemic cardiomyopathy; E87.1 Hypo-osmolality and hyponatremia; E03.9 Hypothyroidism, unspecified; N18.4 Chronic kidney disease, stage 4 (severe); I25.708 Atherosclerosis of coronary artery bypass graft(s), unspecified, with other forms of angina pectoris; I25.2 Old myocardial infarction; N40.0 Benign prostatic hyperplasia without lower urinary tract symptoms; K21.9 Gastro-esophageal reflux disease without esophagitis; E78.5 Hyperlipidemia, unspecified; I48.0 Paroxysmal atrial fibrillation; E87.5 Hyperkalemia; Z88.0 Allergy status to penicillin; Z87.891 Personal history of nicotine dependence; Z95.5 Presence of coronary angioplasty implant and graft; Z86.73 Personal history of transient ischemic attack (TIA), and cerebral infarction without residual deficits; Z79.4 Long term (current) use of insulin; Z95.1 Presence of aortocoronary bypass graft; Z79.890 Hormone replacement therapy; Z79.02 Long term (current) use of antithrombotics/antiplatelets; Z79.01 Long term (current) use of anticoagulants; Z79.899 Other long term (current) drug therapy
CPT/HCPCS: 36415; 71045; 80053; 81001; 82010; 82803; 82962; 83036; 83605; 83735; 83930; 84100; 84484; 85025; 87040; 87086; 93005; 96374; 99285; G0378; J2405

== ENCOUNTER 2025-05-19 12:12 | Inpatient (IN) | payer MEDICARE, SELFPAY ==
--- OUTSIDE RECORDS SUMMARY | 2025-04-14 20:00 | XMS_ITS | Clinical Summary ---
Author Organization Unknown Care Team Providers Care Piano Assembler Name Role Phone SOFÍA ARIAS, MADELAINE Unavailable Unavailable KATHI PT, SREEDHAR Unavailable Unavailable ZULAY SALES MARKETING MANAGER, KAYLIN Unavailable Unavailable LUCY OT, LUCY Unavailable Unavailable Payers Payer Name Policy Type Policy Number Effective Date Expira tion Date PORFIRIOAUTH [id number] Problems Condition Name Condition Details Condition Category Status Onset Date Resolution Date Last Treatment Date Treating Clinician Comments HEART FAILURE, UNSPECIFIED Active 02-10 00:00: 00 ATHSCL HEART DISEASE OF [place] CORONARY ARTERY W/O ANG PCTRS Active 02-10 [...] USE OF INSULIN Active 02-10 00:00: 00 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 Active 02-10 [...] 2023-10 00:00: 00 03-03 00:00 :00 No [id number] DIURETIC 1 tablet NEEDED 1 tablet NEEDED (route: oral) Med Classific ation: Cardiovas cular Therapy Agents Adult Low Dose Aspirin 81 mg tablet,maria fernanda yed release 03-08 00:00: 00 03-03 00:00 :00 No [id number] BLOOD THINNER 1 tablet DAILY 1 tablet DAILY (route: oral) Med Classific ation: Hematolog ical Agents atorvastati n 20 mg tablet 04-05 00:00: 00 03-03 00:00 :00 No [id number] HYPERLIPIDE CHARLIE 1 tablet BEDTIME 1 tablet BEDTIME (route: oral) Med Classific ation: Cardiovas cular Therapy Agents ferrous sulfate 324 mg (65 mg iron) tablet,maria fernanda yed release 04-05 00:00: 00 Yes [id number] SUPPLEMENT 1 tablet DAILY 1 tablet DAILY (route: oral) Med Classific ation: Electroly te Balance-N utritiona l Products finasteride 5 mg tablet 04-05 00:00: 00 03-03 00:00 :00 No [id number] BPH 1 tablet DAILY 1 tablet DAILY (route: oral) Med Classific ation: Genitouri nary Therapy hydralazine 50 mg tablet 04-05 00:00: 00 11-05 00:00 :00 No [id number] HYPERTENSIO N 1 tablet EVERY 8 HOURS 1 tablet EVERY 8 HOURS (route: oral) Med Classific ation: Cardiovas cular Therapy Agents insulin lispro (U-100) 100 unit/mL subcutaneou s pen 04-05 00:00: 00 03-03 00:00 :00 No [id number] DIABETES 1 unit 3 TIMES DAILY 1 unit 3 TIMES DAILY (route: [facility]) Med Classific ation: Endocrine isosorbide dinitrate 10 mg tablet 04-05 00:00: 00 03-03 00:00 :00 No [id number] HYPERTENSIO N 1 tablet EVERY 8 HOURS 1 tablet EVERY 8 HOURS (route: oral) Med Classific ation: Cardiovas cular Therapy Agents Lantus Solostar U-100 Insulin 100 unit/mL [facility]3 mL[facility] 04-05 00:00: 00 Yes [id number] DIABETES 27 unit BEDTIME 27 unit BEDTIME (route: [facility]) Med Classific ation: Endocrine levothyroxi ne 75 mcg tablet 04-05 00:00: 00 03-03 00:00 :00 No [id number] HYPOTHYROID 1 tablet DAILY 1 tablet DAILY (route: oral) Med Classific ation: Endocrine melatonin 3 mg tablet 04-05 00:00: 00 Yes [id number] INSOMNIA 1 tablet BEDTIME 1 tablet BEDTIME (route: oral) Med Classific ation: Central Nervous System Agents Arthritis Pain Relief (acetaminop hen) ER 650 mg tablet,exte nd release 11-03 00:00: 03-03 00:00 :00 No [id number] PAIN 1 tablet EVERY 8 HOURS 1 tablet EVERY 8 HOURS (route: oral) Med Classific ation: Analgesic , Anti-infl ammatory or Antipyret ic carvedilol 3.125 mg tablet 11-03 00:00: 00 03-03 00:00 :00 No [id number] CHF 1 tablet 2 TIMES DAILY 1 tablet 2 TIMES DAILY (route: oral) Med Classific ation: Cardiovas cular Therapy Agents cholecalcif vaibhav (vitamin D3) 1,250 mcg (50,000 unit) tablet 11-03 00:00: 00 Yes [id number] SUPPLEMENT 1 tablet DAILY 1 tablet DAILY (route: oral) Med Classific ation: Electroly te Balance-N utritiona l Products clopidogrel 75 mg tablet 11-03 00:00: 00 Yes [id number] BLOOD THINNER 1 tablet DAILY 1 tablet DAILY (route: oral) Med Classific ation: Hematolog ical Agents Jardiance 10 mg tablet 11-03 00:00: 00 03-03 00:00 :00 No [id number] DIABETES 1 tablet DAILY 1 tablet DAILY (route: oral) Med Classific ation: Endocrine omeprazole 40 mg capsule,del ayed release 11-03 00:00: 00 Yes [id number] GI 1 capsule DAILY 1 capsule DAILY (route: oral) Med Classific ation: Gastroint estinal Therapy Agents atorvastati n 40 mg tablet 02-22 00:00: 00 Yes [id number] CHOLESTEROL 1 tablet BEDTIME 1 tablet BEDTIME (route: oral) Med Classific ation: Cardiovas cular Therapy Agents acetaminoph en 500 mg tablet 03-03 00:00: 00 Yes [id number] PAIN 1 tablet EVERY 6 HOURS 1 tablet EVERY 6 HOURS (route: oral) Med Classific ation: Analgesic , Anti-infl ammatory or Antipyret ic amiodarone 200 mg tablet 03-03 00:00: 00 Yes [id number] BLOOD PRESSURE 1 tablet 2 TIMES DAILY 1 tablet 2 TIMES DAILY (route: oral) Med Classific ation: Cardiovas cular Therapy Agents bumetanide 2 mg tablet 03-03 00:00: 00 Yes [id number] CHF 1 tablet 2 TIMES DAILY 1 tablet 2 TIMES DAILY (route: oral) Med Classific ation: Cardiovas cular Therapy Agents Humalog KwikPen (U-100) Insulin 100 unit/mL subcutaneou s 03-03 00:00: 00 Yes [id number] T2DM 5 unit 2 TIMES DAILY 5 unit 2 TIMES DAILY (route: [facility]) Med Classific ation: Endocrine hydralazine 10 mg tablet 03-03 00:00: 00 Yes [id number] BLOOD PRESSURE 2 tablet 3 TIMES DAILY 2 tablet 3 TIMES DAILY (route: oral) Med Classific ation: Cardiovas cular Therapy Agents isosorbide dinitrate 20 mg tablet 03-03 00:00: 00 Yes [id number] BLOOD PRESSURE 1 tablet 3 TIMES DAILY 1 tablet 3 TIMES DAILY (route: oral) Med Classific ation: Cardiovas cular Therapy Agents levothyroxi ne 88 mcg tablet 03-03 00:00: 00 Yes [id number] THYROID 1 tablet DAILY 1 tablet DAILY (route: oral) Med Classific ation: Endocrine Xarelto 15 mg tablet 03-03 00:00: 00 Yes [id number] BLOOD THINNER 1 tablet DAILY 1 tablet [...] TO EVALUATE, OBSERVE / ASSESS, AND MONITOR, SALES MARKETING MANAGER TO OBSERVE AND MONITOR, PROVIDE SKILLED THERAPEUTIC INTERVENTION, ACTIVITY, EDUCATION, AND TRAINING TO ADDRESS; [code = AGENCY MAY PERFORM A RESUMPTION OF CARE VISIT FOLLOWING ANY HOSPITAL ADMISSION. PT TO EVALUATE, OBSERVE / ASSESS, AND MONITOR, SALES MARKETING MANAGER TO OBSERVE AND MONITOR, PROVIDE SKILLED THERAPEUTIC INTERVENTION, ACTIVITY, EDUCATION, AND TRAINING TO ADDRESS;] Future Scheduled Test THERAPEUTI C EXERCISES AND ESTABLISHING A HOME EXERCISE PROGRAM (PT/SALES MARKETING MANAGER) [code = THERAPEUTIC EXERCISES AND ESTABLISHING A HOME EXERCISE PROGRAM (PT/SALES MARKETING MANAGER)] Future Scheduled Test NEUROMUSCU LAR RE-EDUCATION / BALANCE / POSTURAL CONTROL (PT) [code = NEUROMUSCULAR RE-EDUCATION / BALANCE / POSTURAL CONTROL (PT)] Future Scheduled Test PT/SALES MARKETING MANAGER TO PROVIDE GAIT TRAINING FOR IMPROVED MOBILITY AND /OR TO NORMALIZE GAIT PATTERN [code = PT/SALES MARKETING MANAGER TO PROVIDE GAIT TRAINING FOR IMPROVED MOBILITY AND /OR TO NORMALIZE GAIT PATTERN] Future Scheduled Test SIT TO/FRO M STAND TRANSFERS (PT/SALES MARKETING MANAGER) [code = SIT TO/FROM STAND TRANSFERS (PT/SALES MARKETING MANAGER)] Future Scheduled Test PT/SALES MARKETING MANAGER TO IDENTIFY FALL RISK FACTORS; EDUCATE THE PATIENT/CAREGIVER ON WAYS TO REDUCE FALL RISK FACTORS AND ESTABLISH HOME EXERCISE PROGRAM TO MINIMIZE FALL RISK. MAY TEACH THE PATIENT FLOOR RECOVERY WHEN CLINICALLY APPROPRIATE [code = PT/SALES MARKETING MANAGER TO IDENTIFY FALL RISK FACTORS; EDUCATE THE PATIENT/CAREGIVER ON WAYS TO REDUCE FALL RISK FACTORS AND ESTABLISH HOME EXERCISE PROGRAM TO MINIMIZE FALL RISK. MAY TEACH THE PATIENT FLOOR RECOVERY WHEN CLINICALLY APPROPRIATE] Future Scheduled Test PT / SALES MARKETING MANAGER T O INSTRUCT PATIENT/CAREGIVER ON RISK FOR HOSPITALIZATION/EMERGENCY ROOM VISITS, TEACH SIGNS AND SYMPTOMS THAT PUT PATIENT AT RISK, WHEN TO NOTIFY NURSE/PHYSICIAN OF COMPLICATIONS/DECLINE, AND WHEN TO CALL 911. [code = PT / SALES MARKETING MANAGER TO INSTRUCT PATIENT/CAREGIVER ON RISK FOR HOSPITALIZATION/EMERGENCY ROOM VISITS, TEACH SIGNS AND SYMPTOMS THAT PUT PATIENT AT RISK, WHEN TO NOTIFY NURSE/PHYSICIAN OF COMPLICATIONS/DECLINE, AND WHEN TO CALL 911.] Future Scheduled Test PT TO ASSE SS / SALES MARKETING MANAGER TO MONITOR CARDIO/RESPIRATORY SYSTEM; AND NOTIFY THE PHYSICIAN AND/OR THE RN CLINICAL CUSTOMER ACCOUNT MANAGER FOR PHYSICIAN NOTIFICATION FOR EARLY SIGNS AND SYMPTOMS OF EXACERBATION OR DETERIORATION. [code = PT TO ASSESS / SALES MARKETING MANAGER TO MONITOR CARDIO/RESPIRATORY SYSTEM; AND NOTIFY THE PHYSICIAN AND/OR THE RN CLINICAL CUSTOMER ACCOUNT MANAGER FOR PHYSICIAN NOTIFICATION FOR EARLY SIGNS AND SYMPTOMS OF EXACERBATION OR DETERIORATION.] Future Scheduled Test PT / SALES MARKETING MANAGER T O MONITOR AND EDUCATE ON OXYGEN SATURATION DURING ADLS/IADLS, NOTIFY PHYSICIAN AND/OR THE RN CLINICAL CUSTOMER ACCOUNT MANAGER FOR PHYSICIAN NOTIFICATION AND IF O2 SATS BELOW PHYSICIAN ORDERED PARAMETERS AFTER 10 MIN OF REST [code = PT / SALES MARKETING MANAGER TO MONITOR AND EDUCATE ON OXYGEN SATURATION DURING ADLS/IADLS, NOTIFY PHYSICIAN AND/OR THE RN CLINICAL CUSTOMER ACCOUNT MANAGER FOR PHYSICIAN NOTIFICATION AND IF O2 SATS BELOW PHYSICIAN ORDERED PARAMETERS AFTER 10 MIN OF REST] Future Scheduled Test SKILLED NU RSING TO EVALUATE FOR PATHOLOGY MANAGEMENT [code = INTERMEDIATE TO EVALUATE FOR PATHOLOGY MANAGEMENT ] Goal [...] End Date/Time Encounter Type Admission Type Attending [facility] Care Department Encounter ID Discharge Date Discharge Status Discharge Condition Discharge Reason Percent Goals Met 2025-03-03 00:00:00 2025-04-15 00:00:00 Outpatient SREEDHAR ANAND [facility] [id number] 2025-04-15 00:00:00 DISCHARGE TO HOME OR SELF CARE INDEPENDEN T WITH USE OF ASSISTIVE DEVICE HH - OTHER (PROVIDE DETAILS IN COORD NOTE) 100.00
--- OUTSIDE RECORDS SUMMARY | 2025-04-14 20:00 | XMS_ITS | Clinical Summary ---
Author Organization Unknown Care Team Providers Care Manager Research Name Role Phone SOFÍA ARIAS, MADELAINE Unavailable Unavailable KATHI PT, SREEDHAR Unavailable Unavailable ZULAY MINE EXPERT, KAYLIN Unavailable Unavailable LUCY OT, LUCY Unavailable Unavailable Payers Payer Name Policy Type Policy Number Effective Date Expira tion Date PORFIRIOAUTH [id number] Problems Condition Name Condition Details Condition Category Status Onset Date Resolution Date Last Treatment Date Treating Clinician Comments HEART FAILURE, UNSPECIFIED Active 02-10 00:00: 00 ATHSCL HEART DISEASE OF [place] CORONARY ARTERY W/O ANG PCTRS Active 02-10 [...] Y BYPASS GRAFT Active 10-06 00:00: 00 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 Active 02-10 00:00: 00 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 Active 02-10 [...] 2023-10 00:00: 00 03-03 00:00 :00 No [id number] DIURETIC 1 tablet NEEDED 1 tablet NEEDED (route: oral) Med Classific ation: Cardiovas cular Therapy Agents Adult Low Dose Aspirin 81 mg tablet,maria fernanda yed release 03-08 00:00: 00 03-03 00:00 :00 No [id number] BLOOD THINNER 1 tablet DAILY 1 tablet DAILY (route: oral) Med Classific ation: Hematolog ical Agents atorvastati n 20 mg tablet 04-05 00:00: 00 03-03 00:00 :00 No [id number] HYPERLIPIDE CHARLIE 1 tablet BEDTIME 1 tablet BEDTIME (route: oral) Med Classific ation: Cardiovas cular Therapy Agents ferrous sulfate 324 mg (65 mg iron) tablet,maria fernanda yed release 04-05 00:00: 00 Yes [id number] SUPPLEMENT 1 tablet DAILY 1 tablet DAILY (route: oral) Med Classific ation: Electroly te Balance-N utritiona l Products finasteride 5 mg tablet 04-05 00:00: 00 03-03 00:00 :00 No [id number] BPH 1 tablet DAILY 1 tablet DAILY (route: oral) Med Classific ation: Genitouri nary Therapy hydralazine 50 mg tablet 04-05 00:00: 00 11-05 00:00 :00 No [id number] HYPERTENSIO N 1 tablet EVERY 8 HOURS 1 tablet EVERY 8 HOURS (route: oral) Med Classific ation: Cardiovas cular Therapy Agents insulin lispro (U-100) 100 unit/mL subcutaneou s pen 04-05 00:00: 00 03-03 00:00 :00 No [id number] DIABETES 1 unit 3 TIMES DAILY 1 unit 3 TIMES DAILY (route: [facility]) Med Classific ation: Endocrine isosorbide dinitrate 10 mg tablet 04-05 00:00: 00 03-03 00:00 :00 No [id number] HYPERTENSIO N 1 tablet EVERY 8 HOURS 1 tablet EVERY 8 HOURS (route: oral) Med Classific ation: Cardiovas cular Therapy Agents Lantus Solostar U-100 [facility]ulin 100 unit[facility]mL [facility]3 [facility] 04-05 00:00: 00 Yes [id number] DIABETES 27 unit BEDTIME 27 unit BEDTIME (route: [facility]) Med Classific ation: Endocrine levothyroxi ne 75 mcg tablet 04-05 00:00: 00 03-03 00:00 :00 No [id number] HYPOTHYROID 1 tablet DAILY 1 tablet DAILY (route: oral) Med Classific ation: Endocrine melatonin 3 mg tablet 04-05 00:00: 00 Yes [id number] INSOMNIA 1 tablet BEDTIME 1 tablet BEDTIME (route: oral) Med Classific ation: Central Nervous System Agents Arthritis Pain Relief (acetaminop hen) ER 650 mg tablet,exte nd release 11-03 00:00: 03-03 00:00 :00 No [id number] PAIN 1 tablet EVERY 8 HOURS 1 tablet EVERY 8 HOURS (route: oral) Med Classific ation: Analgesic , Anti-infl ammatory or Antipyret ic carvedilol 3.125 mg tablet 11-03 00:00: 00 03-03 00:00 :00 No [id number] CHF 1 tablet 2 TIMES DAILY 1 tablet 2 TIMES DAILY (route: oral) Med Classific ation: Cardiovas cular Therapy Agents cholecalcif vaibhav (vitamin D3) 1,250 mcg (50,000 unit) tablet 11-03 00:00: 00 Yes [id number] SUPPLEMENT 1 tablet DAILY 1 tablet DAILY (route: oral) Med Classific ation: Electroly te Balance-N utritiona l Products clopidogrel 75 mg tablet 11-03 00:00: 00 Yes [id number] BLOOD THINNER 1 tablet DAILY 1 tablet DAILY (route: oral) Med Classific ation: Hematolog ical Agents Jardiance 10 mg tablet 11-03 00:00: 00 03-03 00:00 :00 No [id number] DIABETES 1 tablet DAILY 1 tablet DAILY (route: oral) Med Classific ation: Endocrine omeprazole 40 mg capsule,del ayed release 11-03 00:00: 00 Yes [id number] GI 1 capsule DAILY 1 capsule DAILY (route: oral) Med Classific ation: Gastroint estinal Therapy Agents atorvastati n 40 mg tablet 02-22 00:00: 00 Yes [id number] CHOLESTEROL 1 tablet BEDTIME 1 tablet BEDTIME (route: oral) Med Classific ation: Cardiovas cular Therapy Agents acetaminoph en 500 mg tablet 03-03 00:00: 00 Yes [id number] PAIN 1 tablet EVERY 6 HOURS 1 tablet EVERY 6 HOURS (route: oral) Med Classific ation: Analgesic , Anti-infl ammatory or Antipyret ic amiodarone 200 mg tablet 03-03 00:00: 00 Yes [id number] BLOOD PRESSURE 1 tablet 2 TIMES DAILY 1 tablet 2 TIMES DAILY (route: oral) Med Classific ation: Cardiovas cular Therapy Agents bumetanide 2 mg tablet 03-03 00:00: 00 Yes [id number] CHF 1 tablet 2 TIMES DAILY 1 tablet 2 TIMES DAILY (route: oral) Med Classific ation: Cardiovas cular Therapy Agents Humalog KwikPen (U-100) Insulin 100 unit/mL subcutaneou s 03-03 00:00: 00 Yes [id number] T2DM 5 unit 2 TIMES DAILY 5 unit 2 TIMES DAILY (route: [facility]) Med Classific ation: Endocrine hydralazine 10 mg tablet 03-03 00:00: 00 Yes [id number] BLOOD PRESSURE 2 tablet 3 TIMES DAILY 2 tablet 3 TIMES DAILY (route: oral) Med Classific ation: Cardiovas cular Therapy Agents isosorbide dinitrate 20 mg tablet 03-03 00:00: 00 Yes [id number] BLOOD PRESSURE 1 tablet 3 TIMES DAILY 1 tablet 3 TIMES DAILY (route: oral) Med Classific ation: Cardiovas cular Therapy Agents levothyroxi ne 88 mcg tablet 03-03 00:00: 00 Yes [id number] THYROID 1 tablet DAILY 1 tablet DAILY (route: oral) Med Classific ation: Endocrine Xarelto 15 mg tablet 03-03 00:00: 00 Yes [id number] BLOOD THINNER 1 tablet DAILY 1 tablet [...] TO EVALUATE, OBSERVE / ASSESS, AND MONITOR, MINE EXPERT TO OBSERVE AND MONITOR, PROVIDE SKILLED THERAPEUTIC INTERVENTION, ACTIVITY, EDUCATION, AND TRAINING TO ADDRESS; [code = AGENCY MAY PERFORM A RESUMPTION OF CARE VISIT FOLLOWING ANY HOSPITAL ADMISSION. PT TO EVALUATE, OBSERVE / ASSESS, AND MONITOR, MINE EXPERT TO OBSERVE AND MONITOR, PROVIDE SKILLED THERAPEUTIC INTERVENTION, ACTIVITY, EDUCATION, AND TRAINING TO ADDRESS;] Future Scheduled Test THERAPEUTI C EXERCISES AND ESTABLISHING A HOME EXERCISE PROGRAM (PT/MINE EXPERT) [code = THERAPEUTIC EXERCISES AND ESTABLISHING A HOME EXERCISE PROGRAM (PT/MINE EXPERT)] Future Scheduled Test NEUROMUSCU LAR RE-EDUCATION / BALANCE / POSTURAL CONTROL (PT) [code = NEUROMUSCULAR RE-EDUCATION / BALANCE / POSTURAL CONTROL (PT)] Future Scheduled Test PT/MINE EXPERT TO PROVIDE GAIT TRAINING FOR IMPROVED MOBILITY AND /OR TO NORMALIZE GAIT PATTERN [code = PT/MINE EXPERT TO PROVIDE GAIT TRAINING FOR IMPROVED MOBILITY AND /OR TO NORMALIZE GAIT PATTERN] Future Scheduled Test SIT TO/FRO M STAND TRANSFERS (PT/MINE EXPERT) [code = SIT TO/FROM STAND TRANSFERS (PT/MINE EXPERT)] Future Scheduled Test PT/MINE EXPERT TO IDENTIFY FALL RISK FACTORS; EDUCATE THE PATIENT/CAREGIVER ON WAYS TO REDUCE FALL RISK FACTORS AND ESTABLISH HOME EXERCISE PROGRAM TO MINIMIZE FALL RISK. MAY TEACH THE PATIENT FLOOR RECOVERY WHEN CLINICALLY APPROPRIATE [code = PT/MINE EXPERT TO IDENTIFY FALL RISK FACTORS; EDUCATE THE PATIENT/CAREGIVER ON WAYS TO REDUCE FALL RISK FACTORS AND ESTABLISH HOME EXERCISE PROGRAM TO MINIMIZE FALL RISK. MAY TEACH THE PATIENT FLOOR RECOVERY WHEN CLINICALLY APPROPRIATE] Future Scheduled Test PT / MINE EXPERT T O INSTRUCT PATIENT/CAREGIVER ON RISK FOR HOSPITALIZATION/EMERGENCY ROOM VISITS, TEACH SIGNS AND SYMPTOMS THAT PUT PATIENT AT RISK, WHEN TO NOTIFY NURSE/PHYSICIAN OF COMPLICATIONS/DECLINE, AND WHEN TO CALL 911. [code = PT / MINE EXPERT TO INSTRUCT PATIENT/CAREGIVER ON RISK FOR HOSPITALIZATION/EMERGENCY ROOM VISITS, TEACH SIGNS AND SYMPTOMS THAT PUT PATIENT AT RISK, WHEN TO NOTIFY NURSE/PHYSICIAN OF COMPLICATIONS/DECLINE, AND WHEN TO CALL 911.] Future Scheduled Test PT TO ASSE SS / MINE EXPERT TO MONITOR CARDIO/RESPIRATORY SYSTEM; AND NOTIFY THE PHYSICIAN AND/OR THE RN CLINICAL NURSING TECHNICIAN FOR PHYSICIAN NOTIFICATION FOR EARLY SIGNS AND SYMPTOMS OF EXACERBATION OR DETERIORATION. [code = PT TO ASSESS / MINE EXPERT TO MONITOR CARDIO/RESPIRATORY SYSTEM; AND NOTIFY THE PHYSICIAN AND/OR THE RN CLINICAL NURSING TECHNICIAN FOR PHYSICIAN NOTIFICATION FOR EARLY SIGNS AND SYMPTOMS OF EXACERBATION OR DETERIORATION.] Future Scheduled Test PT / MINE EXPERT T O MONITOR AND EDUCATE ON OXYGEN SATURATION DURING ADLS/IADLS, NOTIFY PHYSICIAN AND/OR THE RN CLINICAL NURSING TECHNICIAN FOR PHYSICIAN NOTIFICATION AND IF O2 SATS BELOW PHYSICIAN ORDERED PARAMETERS AFTER 10 MIN OF REST [code = PT / MINE EXPERT TO MONITOR AND EDUCATE ON OXYGEN SATURATION DURING ADLS/IADLS, NOTIFY PHYSICIAN AND/OR THE RN CLINICAL NURSING TECHNICIAN FOR PHYSICIAN NOTIFICATION AND IF O2 SATS BELOW PHYSICIAN ORDERED PARAMETERS AFTER 10 MIN OF REST] Future Scheduled Test SKILLED NU RSING TO EVALUATE FOR PATHOLOGY MANAGEMENT [code = FDC TO EVALUATE FOR PATHOLOGY MANAGEMENT ] Goal [...] End Date/Time Encounter Type Admission Type Attending [facility] Care Department Encounter ID Discharge Date Discharge Status Discharge Condition Discharge Reason Percent Goals Met 2025-03-03 00:00:00 2025-04-15 00:00:00 Outpatient SREEDHAR ANAND [facility] [id number] 2025-04-15 00:00:00 DISCHARGE TO HOME OR SELF CARE INDEPENDEN T WITH USE OF ASSISTIVE DEVICE HH - OTHER (PROVIDE DETAILS IN COORD NOTE) 100.00
[2025-05-19] VITALS (9 sets, daily range): BP systolic 114–165; BP diastolic 64–81; PULSE 64–79; RESP 9–20; TEMP 36.5–36.8; O2SAT 97–100; BMI 26.2; BMI 25.4
--- NOTE | 2025-05-19 12:12 | ECG_ITS ---
APPROVED REPORT Exam: Resting ECG HR:70 bpm ECG Measurements Heart Rate [address] 188 P 61 QRSd 114 QRS 20 QT 438 T 114 QTc 458 Conclusion SINUS RHYTHM WITH FREQUENT VENTRICULAR PREMATURE COMPLEXES INFERIOR MYOCARDIAL INFARCTION , PROBABLY OLD [40+ ms Q WAVE AND/OR ST/T ABNORMALITY IN II/aVF] MODERATE T-WAVE ABNORMALITY, CONSIDER LATERAL ISCHEMIA [-0.1+ mV T-WAVE IN I/aVL/V5/V6] ABNORMAL ECG UNCONFIRMED REPORT Electronically signed by : KYLE JOHNSON, 05/20/2025 00:36:38
--- NOTE | 2025-05-19 12:20 | XR_ITS ---
FINAL REPORT CLINICAL HISTORY: Nonspecific chest pain COMPARISON: 05/13/2025 FINDINGS: A portable view of the chest was obtained. Prior median sternotomy. The heart is normal in size.. There is no focal infiltrate. There is no pleural effusion or pneumothorax. IMPRESSION: No acute process on this portable exam. Reviewed, Interpreted and Dictated by Nilam العلي MD Transcribed by Veronica Wilder Authenticated and [facility]
--- OUTSIDE RECORDS SUMMARY | 2025-05-19 12:22 | XMS_ITS ---
Author Name Auto Generated, Auto Generated Organization [facility] at[facility] Address [address] [place] [address] Phone [phone] Care Team Providers Care Claims Counsel Name Role Phone Eduar Velasco Unavailable [phone] Functional Status No Results Mental Status No [...]
--- OUTSIDE RECORDS SUMMARY | 2025-05-19 12:22 | XMS_ITS ---
Author Name Auto Generated, Auto Generated Organization [facility] Address [address] [place] [address] Phone [phone] Care Team Providers Care Hospitality Team Member Name Role Phone Eduar Velasco Unavailable [phone] Functional Status No Results Mental Status No [...]
--- OUTSIDE RECORDS SUMMARY | 2025-05-19 12:23 | XMS_ITS | Encounter Summary ---
Author Organization [employer] ([place], [place], [place], [place]) Address [address] [place] [address] Care Team Providers Care Metal Engraver Name Role Phone Marielos Amaral KAYE Primary Care Provider Encounter Details Date Type Department Care Team (Late st Contact Info) Description 10/15/2019 Transcribed Document [facility] [place] Medicine [address] [place] [address] ProviderHaroldo MD [address] [place] [address] Social History Tobacco Use Types Packs/Day Years Used Date Smoking Tobacco: Never Assessed Sex and Gender Information Value Date Recorded Sex Assigned at Not on file Legal Sex Male 3:45 PM CDT Gender Identity Not on file Sexual Orientation Not on file documented as of this encounter Miscellaneous Notes * Cerner Conversion Note - Haroldo ProviderMD - 10/15/2019 3:30 PM SCUBA INSTRUCTOR On Going Discharge Planning Entered On: 10/15/2019 15:31 EST Performed On: 10/15/2019 15:30 EST by HARITHA BARRIOS Rn-Senior Office AssistantField Reporter Progress Note Discharge Arrangements : Patient Post-Acute [...] Meeting Medical Necessity : Yes HARITHA BARRIOS Rn-Senior Office Assistant - 10/15/2019 15:30 EST Narrative Progress Note Narrative Progress Note : Ongoing d/c planning, anticipate d/c home with spouse Enriqueta [phone]; [phone]. HARITHA BARRIOS Rn-Senior Office Assistant - 10/15/2019 15:30 EST Electronically signed by Brittany [facility] Conversion Icing Maker Cerner at 01/24/2023 10:29 AM CDT documented in this encounter Plan of Treatment Not on file documented as of this encounter Visit Diagnoses Not on filedocumented in this encounter Care Teams Metal Engraver Relationship Specialty Start Date End Date Marielos Amaral, KAYE [address] [address] PCP - General Nurse Practitioner 08/18/23 documented as of this encounter
--- OUTSIDE RECORDS SUMMARY | 2025-05-19 12:24 | XMS_ITS | Encounter Summary ---
Author Organization [employer] ([place], [place], [place], [place]) Address [address] [place] [address] Care Team Providers Care Newspaper Photo Editor Name Role Phone Marielos Amaral LOG PEELER Primary Care Provider Encounter Details Date Type Department Care Team (Late st Contact Info) Description 10/15/2019 Transcribed Document [facility] [place] Family Medicine [address] [place] [address] ProviderHaroldo MD [address] [place] [address] Social History Tobacco Use Types Packs/Day Years Used Date Smoking Tobacco: Never Assessed Sex and Gender Information Value Date Recorded Sex Assigned at Not on file Legal Sex Male 3:45 PM CDT Gender Identity Not on file Sexual Orientation Not on file documented as of this encounter Miscellaneous Notes * Cerner Conversion Note - Haorldo ProviderMD - 10/15/2019 12:18 PM CHAINSTITCH ELASTIC ATTACHER Patient: ZACKARY ANTOINE Age: 68 years Sex: [...] 5 mg oral tablet: 1 Tab, Oral, V72RHhr, 60 Tab, 0 Refill(s) Toprol-XL 25 mg [...] tablet 5 mg = 1 Tab, Oral, G09XMmv Eliquis 5 mg oral tablet 5 mg [...] History of obstructive sleep apnea / IMO 98665687 / Confirmed, Active Problems (13) Angina Coronary [...] (OCT 14) Radiology Results (Last 48 hours) [id number] -- 10/14/2019 17:19 CR Chest 1 Vw [...] on filedocumented in this encounter Care Teams Newspaper Photo Editor Relationship Specialty Start Date End Date Marielos Amaral, LOG PEELER [address] [address] PCP - General Nurse Practitioner 08/18/23 documented as of this encounter
--- OUTSIDE RECORDS SUMMARY | 2025-05-19 12:24 | XMS_ITS | Encounter Summary ---
Author Organization [employer] ([place], [place], [place], [place]) Address [address] [place] [address] Care Team Providers Care Regulatory Product Manager Name Role Phone AmaralMarielos KAYE Primary Care Provider Encounter Details Date Type Department Care Team (Late st Contact Info) Description 10/14/2019 Transcribed Document [facility] [place] [address] [place] [address] ProviderHaroldo MD [address] [place] [address] Social History Tobacco Use Types Packs/Day Years Used Date Smoking Tobacco: Never Assessed Sex and Gender Information Value Date Recorded Sex Assigned at Not on file Legal Sex Male 3:45 PM CDT Gender Identity Not on file Sexual Orientation Not on file documented as of this encounter Miscellaneous Notes * Cerner Conversion Note - Haroldo ProviderMD - 10/14/2019 6:48 PM PROCUREMENT ENGINEER Event Note Entered On: 10/14/2019 18:49 EST Performed On: 10/14/2019 18:48 EST by LAZARA Hoang Event Note Event Date/Time : 10/14/2019 6:30 EST Event Location : Assigned room Event Details : Nursing assessment additional narrative Description of Event : Patient arrived via stretcher from ED. No acute distress. LAZARA Hoang - 10/14/2019 18:48 EST Electronically signed by Brittany [facility] Conversion Logging Superintendent [employer] at 01/24/2023 10:44 AM CDT documented in this encounter Plan of Treatment Not on file documented as of this encounter Visit Diagnoses Not on filedocumented in this encounter Care Teams Regulatory Product Manager Relationship Specialty Start Date End Date Marielos Amaral, GRINDER SET UP OPERATOR THREAD TOOL [address] [phone] PCP - General Nurse Practitioner 08/18/23 documented as of this encounter
--- OUTSIDE RECORDS SUMMARY | 2025-05-19 12:24 | XMS_ITS | Encounter Summary ---
Author Organization [employer] ([place], [place], [place], [place]) Address [address] [place] [address] Care Team Providers Care Pinion Sorter Name Role Phone Marielos Amaral KAYE Primary Care Provider Encounter Details Date Type Department Care Team (Late st Contact Info) Description 10/14/2019 Transcribed Document [facility] [place] [address] [place] [address] ProviderHaroldo MD [address] [place] [address] Social History Tobacco Use Types Packs/Day Years Used Date Smoking Tobacco: Never Assessed Sex and Gender Information Value Date Recorded Sex Assigned at Not on file Legal Sex Male 3:45 PM CDT Gender Identity Not on file Sexual Orientation Not on file documented as of this encounter Miscellaneous Notes * Cerner Conversion Note - Haroldo ProviderMD - 10/14/2019 2:14 PM FOOD INSPECTOR Pain Assessment Entered On: 10/14/2019 15:44 EST [...] on filedocumented in this encounter Care Teams Pinion Sorter Relationship Specialty Start Date End Date Marielos Amaral, REFINERY OPERATOR VAPOR RECOVERY UNIT [address] [phone] PCP - General Nurse Practitioner 08/18/23 documented as of this encounter
--- OUTSIDE RECORDS SUMMARY | 2025-05-19 12:24 | XMS_ITS | Encounter Summary ---
Author Organization [employer] ([place], [place], [place], [place]) Address [address] [place] [address] Care Team Providers Care Lead Athlete Name Role Phone Marielos Amaral KAYE Primary Care Provider Encounter Details Date Type Department Care Team (Late st Contact Info) Description 10/15/2019 Transcribed Document [facility] [place] [address] [place] [address] ProviderHaroldo MD [address] [place] [address] Social History Tobacco Use Types Packs/Day Years Used Date Smoking Tobacco: Never Assessed Sex and Gender Information Value Date Recorded Sex Assigned at Not on file Legal Sex Male 3:45 PM CDT Gender Identity Not on file Sexual Orientation Not on file documented as of this encounter Miscellaneous Notes * [employer]ner Conversion Note - Historical ProviderMD - 10/15/2019 5:58 AM CANVAS WORKER APPRENTICE Height and Weight, Routine Entered On: 10/15/2019 5:58 EST Performed On: 10/15/2019 5:58 EST by Emily Rich [facility] Height and Weight, Routine Routine Weight Source : Bed scale Routine Weight Entry Format : Metric Routine Weight, Kilograms : 87.5 kg(Converted to: 192 lb 14 oz) Routine Weight Calculation : 87.5 kg Height Source : Stated Height Entry Format : [place] Height, Feet : 5 ft Height, Inches [...] filedocumented in this encounter Care Teams Lead Athlete Relationship Specialty Start Date End Date Marielos Amaral, HEARSE DRIVER [address] [phone] PCP - General Nurse Practitioner 08/18/23 documented as of this encounter
--- OUTSIDE RECORDS SUMMARY | 2025-05-19 12:24 | XMS_ITS | Encounter Summary ---
Author Organization [employer] ([place], [place], [place], [place]) Address [address] [place] [address] Care Team Providers Care Manager Event Name Role Phone Munir Marielos RESTREPO Primary Care Provider Encounter Details Date Type Department Care Team (Late st Contact Info) Description 04/23/2022 Transcribed Document [facility] [place] [address] [place] [address] ProviderHaroldo MD [address] [place] [address] Social History Tobacco Use Types [...] speak a language other than Niuean at [facility]? Yes 10/30/2024 Do [...] FANY FREEMAN, PT - 04/25/2022 11:53 EDT Track Template Maker Goals Mobility/Bed Mobility LTG PT Grid Goal [...] filedocumented in this encounter Care Teams Manager Event Relationship Specialty Start Date End Date Marielos Amaral, KAYE [address] [address] PCP - General Nurse Practitioner 08/18/23 documented as of this encounter
--- OUTSIDE RECORDS SUMMARY | 2025-05-19 12:24 | XMS_ITS | Encounter Summary ---
Author Organization [employer] ([place], [place], [place], [place]) Address [address] [place] [address] Care Team Providers Care Embossing Tool Setter Name Role Phone Munir Marielos RESTREPO Primary Care Provider Encounter Details Date Type Department Care Team (Late st Contact Info) Description 04/23/2022 Transcribed Document [facility] [place] Family Medicine [address] [place] [address] ProviderHaroldo MD [address] [place] [address] Social History Tobacco Use Types [...] speak a language other than Micronesian at [facility]? Yes 10/30/2024 Do you [...] Historical Provider, - 04/23/2022 9:21 AM CDT PROGRAM SUPERVISOR Therapy Screen Entered On: 04/23/2022 9:26 EDT Performed On: 04/23/2022 9:21 EDT by STACIA BROWN SLP Therapy Screen Medical Chart Reviewed, PROGRAM SUPERVISOR : Yes Therapy Screen Completed, PROGRAM SUPERVISOR : Yes Recommendations for Evaluation PROGRAM SUPERVISOR : None Therapy Screen Comment, PROGRAM SUPERVISOR : Neuro is currently not consulted, CVA does not appear to be in differential per hospitalist PA note. No communication deficits noted during bedside yesterday. Will defer communication eval. STACIA BROWN, PROGRAM SUPERVISOR - 04/23/2022 9:21 EDT Electronically signed by Brittany [facility] Conversion Profile Trimmer Cerner at 01/24/2023 10:22 AM CDT documented in this encounter Plan of Treatment Not on file documented as of this encounter Visit Diagnoses Not on filedocumented in this encounter Care Teams Embossing Tool Setter Relationship Specialty Start Date End Date Marielos Amaral APRN [address] [phone] PCP - General Nurse Practitioner 08/18/23 documented as of this encounter
--- OUTSIDE RECORDS SUMMARY | 2025-05-19 12:24 | XMS_ITS | Encounter Summary ---
Author Organization [employer] ([place], [place], [place], [place]) Address [address] [place] [address] Care Team Providers Care Oyster Shucker Name Role Phone Marielos Amaral KAYE Primary Care Provider [phone] Encounter Details Date Type Department Care Team (Late st Contact Info) Description 10/15/2019 Transcribed Document [facility] [place] Family Medicine [address] [place] [address] ProviderHaroldo MD [address] [place] [address] Social History Tobacco Use Types Packs/Day Years Used Date Smoking Tobacco: Never Assessed Sex and Gender Information Value Date Recorded Sex Assigned at Not on file Legal Sex Male 3:45 PM CDT Gender Identity Not on file Sexual Orientation Not on file documented as of this encounter Miscellaneous Notes * Cerner Conversion Note - Haroldo ProviderMD - 10/15/2019 4:08 AM SUPERVISOR VACUUM METALIZING Spiritual Care Short Form Entered On: 10/15/2019 7:22 EST Performed On: 10/15/2019 4:08 EST by REJI STERLING Chaplain General Information, Spiritual Care Spiritual Care Referred by : Coffee Host follow-up Reason for Visit : Follow Up Ministry Provided to : Patient, Family/Significant other Intervention/Comment/Summary Points : Met with Enriqueta (Gisselle) surg. waiting area charging her phone. Enriqueta notes patient spiritual journey as involved various Saqib centered denominations but Yarsani best describes pt's current belief system. Chap. prov. prayer with Enriqueta focusing on pt. recovery and effectiveness of TPA. Baptism Preference : No sikhism REJI STERLING Chaplain - 10/15/2019 7:19 EST Electronically signed by Brittany, [facility] Conversion Nurse Care Manager Cerner at 01/24/2023 10:18 AM CDT documented in this encounter Plan of Treatment Not on file documented as of this encounter Visit Diagnoses Not on filedocumented in this encounter Care Teams Oyster Shucker Relationship Specialty Start Date End Date Marielos Amaral, KAYE [address] [place] [address] PCP - General Nurse Practitioner 08/18/23 documented as of this encounter
--- OUTSIDE RECORDS SUMMARY | 2025-05-19 12:24 | XMS_ITS | Encounter Summary ---
Author Organization [employer] ([place], [place], [place], [place]) Address [address] [place] [address] Care Team Providers Care Emergency Man Name Role Phone Marielos Amaral KAYE Primary Care Provider Encounter Details Date Type Department Care Team (Late st Contact Info) Description 10/14/2019 Transcribed Document [facility] [place] Family Medicine [address] [place] [address] ProviderHaroldo MD [address] [place] [address] Social History Tobacco Use Types Packs/Day Years Used Date Smoking Tobacco: Never Assessed Sex and Gender Information Value Date Recorded Sex Assigned at Not on file Legal Sex Male 3:45 PM CDT Gender Identity Not on file Sexual Orientation Not on file documented as of this encounter Miscellaneous Notes * Cerner Conversion Note - Haroldo ProviderMD - 10/14/2019 4:59 PM MEDICAID BUSINESS ANALYST Evaluation, Occupational Therapy Entered On: 10/15/2019 15:56 [...] FOSTER OTR/Melvin - 10/15/2019 15:51 EST Hand Rolling Up Machine Operator Test : Bilateral hook and eye sewing machine operator strength WFL ARABELLA FOSTER OTR/Melvin 10/15/2019 15:51 [...] ARABELLA FOSTER OTR/Melvin - 10/15/2019 15:51 EST [place] OT Charges OT Eval Moderate Complexity : 1 ARABELLA FOSTER OTR/Melvin - 10/15/2019 15:51 EST Electronically signed by [facility], [facility] Conversion Bridge Tender Cerner at 01/24/2023 10:31 AM CDT documented in this encounter Plan of Treatment Not on file documented as of this encounter Visit Diagnoses Not on filedocumented in this encounter Care Teams Emergency Man Relationship Specialty Start Date End Date Marielos Amaral, SUPERVISOR PAINTING [address] [address] PCP - General Nurse Practitioner 08/18/23 documented as of this encounter
--- OUTSIDE RECORDS SUMMARY | 2025-05-19 12:24 | XMS_ITS | Encounter Summary ---
Author Organization [employer] ([place], [place], [place], [place]) Address [address] [place] [address] Care Team Providers Care Environmental Conservation Officer Name Role Phone Munir Marielos RESTREPO Primary Care Provider Encounter Details Date Type Department Care Team (Late st Contact Info) Description 04/23/2022 Transcribed Document [facility] [place] [address] [place] [address] ProviderHaroldo MD [address] [place] [address] Social History Tobacco Use Types [...] Do you speak a language other than Kazakh at [facility]? Yes 10/30/2024 Do you want help [...] Health Plan: AN[employer]M MEDICARE REPL Policy Number: [id number] Authorization Number: Insurance Primary Name : [employer] MEDICARE REPL Policy Number: [id number] Authorized Service Begin Date-Primary : 04/22/2022 EDT Historical Authorization Comments-Primary : No Authorization Comments Found KRISTINA GÓMEZ, LUIS - 04/23/2022 18:43 EDT Electronically signed by Brittany [facility] Conversion Animation Director Cerner at 01/24/2023 10:30 AM CDT documented in this encounter Plan of Treatment Not on file documented as of this encounter Visit Diagnoses Not on filedocumented in this encounter Care Teams Environmental Conservation Officer Relationship Specialty Start Date End Date Marielos Amaral [employer] [address] [address] PCP - General Nurse Practitioner 08/18/23 documented as of this encounter
--- OUTSIDE RECORDS SUMMARY | 2025-05-19 12:24 | XMS_ITS | Encounter Summary ---
Author Organization [employer] ([place], [place], [place], [place]) Address [address] [place] [address] Care Team Providers Care Social Services Director Name Role Phone Munir Marielos RESTREPO Primary Care Provider Encounter Details Date Type Department Care Team (Late st Contact Info) Description 04/23/2022 Transcribed Document [facility] [place] [address] [place] [address] ProviderHaroldo MD [address] [place] [address] Social History Tobacco Use Types [...] speak a language other than Argentine at [facility] [...] Health Plan: ANTHEM MEDICARE REPL Policy Number: [id number] Authorization Number: Insurance Primary Name : AN[employer]M MEDICARE REPL Policy Number: [id number] Reference Number-Primary : [id number] Authorized Service Begin Date-Primary : 04/22/2022 EDT Authorization Comments-Primary : Request for inpt auth [facility] Ref# [id number] received;clinicals attached. Historical Authorization Comments-Primary : No Authorization Comments Found KRISTINA GÓMEZ RN - 04/23/2022 18:56 EDT documented in this encounter Plan of Treatment Not on file documented as of this encounter Visit Diagnoses Not on filedocumented in this encounter Care Teams Social Services Director Relationship Specialty Start Date End Date Marielos Amaral, HAM MARKER [address] [place] [phone] PCP - General Nurse Practitioner 08/18/23 documented as of this encounter
--- OUTSIDE RECORDS SUMMARY | 2025-05-19 12:24 | XMS_ITS | Encounter Summary ---
Author Organization [employer] ([place], [place], [place], [place]) Address [address] [place] [address] Care Team Providers Care Bakery Decorator Name Role Phone Marielos Amaral KAYE Primary Care Provider Encounter Details Date Type Department Care Team (Late st Contact Info) Description 04/23/2022 Transcribed Document [facility] Radiology [address] [place], [place] [id number] Saba Neal MD [address] [place] [address] [address] [place] [address] Social History Tobacco Use Types Packs/Day Years [...] Do you speak a language other than Samoan at [facility]? Yes 10/30/2024 [...] Other (See Comment) Eliquis: 2.5 mg, Oral, [id number] Rocephin: 1 Gram, 100 mL/Hr, IV Piggyback, [id number] Tylenol: 650 mg, Oral, Q4H, PRN: Pain [...] mg tab 2.5 mg 1 Tab, Oral, [id number] atorvastatin 40 mg tab 40 mg 1 Tab, Oral, At Bedtime cefTRIAXone 1 Gram, IV Piggyback, G56PCbs insulin glargine 1 unit/0.01 mL inj 5 [...] list: Medical Atrial fibrillation / SNOMED CT 05269114 / Confirmed CAD - Coronary artery disease / SNOMED CT 0390181989 / Confirmed Cardiomyopathy / SNOMED CT 513078236 / Confirmed Acute cerebrovascular accident (CVA) / SNOMED CT 011384153 / Confirmed History of obstructive sleep apnea / IMO 70506332 / Confirmed HLD - Hyperlipidemia / SNOMED CT 097911610 / Confirmed HTN - Hypertension / SNOMED CT 1272093555 / Confirmed Type 2 diabetes mellitus / SNOMED CT 752919449 / Confirmed, Active Problems (20) Acute cerebrovascular [...] 28.0 \ Radiology Results (Last 48 hours) [id number] -- 04/22/2022 12:30 CR Chest 1 Vw [...] PA apixaban (Eliquis) 2.5 mg, Oral, Tab, [id number], Routine, Start 04/22/22 21:00:00 EDT, 04/22/22 21:00:00 EDT ASHLEY GALARZA PA atorvastatin 40 mg, Oral, Tab, At Bedtime, Routine, Start 04/22/22 21:00:00 EDT, 04/22/22 13:48:00 EDT ASHLEY GALARZA PA cefTRIAXone (Rocephin) 1 Gram, IV Piggyback, Inj, [id number], infuse over 30 Minute(s), Routine, Start 04/22/22 [...] on filedocumented in this encounter Care Teams Bakery Decorator Relationship Specialty Start Date End Date Marielos Amaral APRN [address] [address] PCP - General Nurse Practitioner 08/18/23 documented as of this encounter
--- OUTSIDE RECORDS SUMMARY | 2025-05-19 12:24 | XMS_ITS | Encounter Summary ---
Author Organization [employer] ([place], [place], [place], [place]) Address [address] [place] [address] Care Team Providers Care Second Operator Name Role Phone Marielos Amaral KAYE Primary Care Provider Encounter Details Date Type Department Care Team (Late st Contact Info) Description 10/14/2019 Transcribed Document [facility] [place] Family Medicine [address] [place] [address] ProviderHaroldo MD [address] [place] [address] Social History Tobacco Use Types Packs/Day Years Used Date Smoking Tobacco: Never Assessed Sex and Gender Information Value Date Recorded Sex Assigned at Not on file Legal Sex Male 3:45 PM CDT Gender Identity Not on file Sexual Orientation Not on file documented as of this encounter Miscellaneous Notes * Cerner Conversion Note - Haroldo ProviderMD - 10/14/2019 8:18 PM VENTURE CAPITAL ANALYST Spiritual Care Assessment Entered On: 10/14/2019 20:20 EST Performed On: 10/14/2019 20:18 EST by LUCY SANDERS Chaplain General Information Initial Visit : Yes Referred by : Code Referral Reason Comment : code stroke Ministry Provided to : Family/Significant other Mandaeism Preference : No baptism LUCY SANDERS Chaplain - 10/14/2019 20:18 EST Spiritual Assessment Spiritual Assessment Comment/Summary Points : responded to code stroke page @ 16:00. supportive presence and conversation with patient's , Enriqueta. 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 Spirital Assessment Comment/Summary Report : SPIRITUAL ASSESSMENT COMMENT/SUMMARY No qualifying data available. LUCY SANDERS, - 10/14/2019 20:18 EST Electronically signed by [facility], [facility] Conversion Process Checker Cerner at 01/24/2023 10:40 AM CDT documented in this encounter Plan of Treatment Not on file documented as of this encounter Visit Diagnoses Not on filedocumented in this encounter Care Teams Second Operator Relationship Specialty Start Date End Date Marielos Amaral, KAYE [address] [place] [phone] PCP - General Nurse Practitioner 08/18/23 documented as of this encounter
--- OUTSIDE RECORDS SUMMARY | 2025-05-19 12:24 | XMS_ITS | Encounter Summary ---
Author Organization [employer] ([place], [place], [place], [place]) Address [address] [place] [address] Care Team Providers Care Job Hand Name Role Phone Marielos Amaral KAYE Primary Care Provider Encounter Details Date Type Department Care Team (Late st Contact Info) Description 10/15/2019 Transcribed Document [facility] [place] Family Medicine [address] [place] [address] ProviderHaroldo MD [address] [place] [address] Social History Tobacco Use Types Packs/Day Years Used Date Smoking Tobacco: Never Assessed Sex and Gender Information Value Date Recorded Sex Assigned at Not on file Legal Sex Male 3:45 PM CDT Gender Identity Not on file Sexual Orientation Not on file documented as of this encounter Miscellaneous Notes * Cerner Conversion Note - Haroldo ProviderMD - 10/15/2019 2:00 AM LEGAL ADMINISTRATIVE ASSISTANT Cardiograph Operator Details Entered On: 10/15/2019 2:47 EST Performed On: 10/15/2019 2:00 EST by Kristofer Barr Rn Order Details Order Detail : N/A IV Order Detail : 1 Oxygen Order Detail : 0 Nurse Collect Order Detail : 1 Central Line Order Detail : No Arterial Line : No Kristofer Barr Rn - 10/15/2019 2:47 EST Electronically signed by Brittany [facility] Conversion Bus And Sys Integration Senior Manager Cerner at 01/24/2023 10:21 AM CDT documented in this encounter Plan of Treatment Not on file documented as of this encounter Visit Diagnoses Not on filedocumented in this encounter Care Teams Job Hand Relationship Specialty Start Date End Date Marielos Amaral, GYNECOLOGY TEACHER [address] [place] [address] PCP - General Nurse Practitioner 08/18/23 documented as of this encounter
--- OUTSIDE RECORDS SUMMARY | 2025-05-19 12:24 | XMS_ITS | Encounter Summary ---
Author Organization [employer] ([place], [place], [place], [place]) Address [address] [place] [address] Care Team Providers Care Reliner Name Role Phone Marielos Amaral KAYE Primary Care Provider Encounter Details Date Type Department Care Team (Late st Contact Info) Description 10/14/2019 Transcribed Document [facility] [place] Family Medicine [address] [place] [address] ProviderHaroldo MD [address] [place] [address] Social History Tobacco Use Types Packs/Day Years Used Date Smoking Tobacco: Never Assessed Sex and Gender Information Value Date Recorded Sex Assigned at Not on file Legal Sex Male 3:45 PM CDT Gender Identity Not on file Sexual Orientation Not on file documented as of this encounter Miscellaneous Notes * Cerner Conversion Note - Haroldo ProviderMD - 10/14/2019 8:20 PM WEBLOGIC DEVELOPER Spiritual Care Assessment Entered On: 10/14/2019 20:22 EST Performed On: 10/14/2019 20:20 EST by LUCY SANDERS Chaplain General Information Initial Visit : No Referred by : follow-up Ministry Provided to : Family/Significant other Latter-Day Preference : No baptism LUCY SANDERS Chaplain - 10/14/2019 20:20 EST Spiritual Assessment Spiritual Assessment Comment/Summary Points : follow up visit with Enriqueta, providing and enjoying conversation about her previous family members who were in [facility]. She has been here many times with several family members being patients down through many years. Spirital Assessment Comment/Summary Report : SPIRITUAL ASSESSMENT COMMENT/SUMMARY Spiritual Assessment Comment/Summary 10/14/19 20:18:00 responded to code stroke page @ 16:00. supportive presence and conversation with patient's , Enriqueta. 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 Signed By: LUCY SANDERS Chaplain ELGIN, DAVID L, Chaplain - 10/14/2019 20:20 EST documented in this encounter Plan of Treatment Not on file documented as of this encounter Visit Diagnoses Not on filedocumented in this encounter Care Teams Reliner Relationship Specialty Start Date End Date Marielos Amaral APRN [address] [address] PCP - General Nurse Practitioner 08/18/23 documented as of this encounter
--- OUTSIDE RECORDS SUMMARY | 2025-05-19 12:24 | XMS_ITS | Encounter Summary ---
Author Organization [employer] ([place], [place], [place], [place]) Address [address] [place] [address] Care Team Providers Care Security Screener Name Role Phone Munir Marielos RESTREPO Primary Care Provider Encounter Details Date Type Department Care Team (Late st Contact Info) Description 04/23/2022 Transcribed Document [facility] [place] [address] [place] [address] ProviderHaroldo MD [address] [place] [address] Social History Tobacco Use Types [...] Do you speak a language other than Mauritian at [facility]? Yes 10/30/2024 [...] - 04/23/2022 9:[address] [place] MATERIAL HANDLER 1ST SHIFT Charges Entered On: 04/23/2022 9:26 EDT Performed On: 04/23/2022 9:21 EDT by STACIA BROWN, RAMONA Ricks MATERIAL HANDLER 1ST SHIFT Charges Screen For Speech Therapy : 1 STACIA BROWN SLP - 04/23/2022 9:21 EDT documented in this encounter Plan of Treatment Not on file documented as of this encounter Visit Diagnoses Not on filedocumented in this encounter Care Teams Security Screener Relationship Specialty Start Date End Date Marielos Amaral, ADULT NURSE PRACTITIONER [address] [phone] PCP - General Nurse Practitioner 08/18/23 documented as of this encounter
--- OUTSIDE RECORDS SUMMARY | 2025-05-19 12:24 | XMS_ITS | Encounter Summary ---
Author Organization [employer] ([place], [place], [place], [place]) Address [address] [place] [address] Care Team Providers Care Disability Insurance Claim Examiner Name Role Phone Marielos Amaral KAYE Primary Care Provider Encounter Details Date Type Department Care Team (Late st Contact Info) Description 10/14/2019 Transcribed Document [facility] [place] [address] [place] [address] ProviderHaroldo MD [address] [place] [address] Social History Tobacco Use Types Packs/Day Years Used Date Smoking Tobacco: Never Assessed Sex and Gender Information Value Date Recorded Sex Assigned at Not on file Legal Sex Male 3:45 PM CDT Gender Identity Not on file Sexual Orientation Not on file documented as of this encounter Miscellaneous Notes * Cerner Conversion Note - Haroldo ProviderMD - 10/14/2019 4:59 PM DISINTEGRATOR Nutrition Assessment Entered On: 10/15/2019 8:33 EST Performed On: 10/15/2019 8:33 EST by Almaz Chaudhari Dietitian Nutrition Assessment Current Nutrition Regimen Comment : 10/15: Rec'd consult for stroke pt. CT of head showed no acute abnormalities. OPEN SOAPER TENDER eval; pt passed and on diabetic diet. Intakes establishing. Meds/labs reviewed. No skin breakdown. LBM correctional captain. RD will rescreen in 2-3 days to monitor po intake and provide ONS prn. Almaz Chaudhari Dietitian - 10/15/2019 10:53 EST Nutrition Assessment Reason : Automatic referral Almaz Chaudhari Dietitian - 10/15/2019 8:32 EST Electronically signed by Brittany [facility] Conversion Dairy Farm Supervisor Cerner at 01/24/2023 10:36 AM CDT documented in this encounter Plan of Treatment Not on file documented as of this encounter Visit Diagnoses Not on filedocumented in this encounter Care Teams Disability Insurance Claim Examiner Relationship Specialty Start Date End Date Marielos Amaral, AMUSEMENT CENTRE MANAGER [address] [place] [address] PCP - General Nurse Practitioner 08/18/23 documented as of this encounter
--- OUTSIDE RECORDS SUMMARY | 2025-05-19 12:24 | XMS_ITS | Encounter Summary ---
Author Organization [employer] ([place], [place], [place], [place]) Address [address] [place] [address] Care Team Providers Care Power Ballast Machine Operator Name Role Phone Munir Marielos RESTREPO Primary Care Provider Encounter Details Date Type Department Care Team (Late st Contact Info) Description 04/23/2022 Transcribed Document [facility] [place] Family Medicine [address] [place] [address] ProviderHaroldo MD [address] [place] [address] Social History Tobacco Use Types [...] Do you speak a language other than Bahraini at [facility]? Yes 10/30/2024 Do you want [...] Other (See Comment) Eliquis: 2.5 mg, Oral, [id number] Rocephin: 1 Gram, 100 mL/Hr, IV Piggyback, X86TMgh Tylenol: 650 mg, Oral, Q4H, PRN: Pain [...] mg tab 2.5 mg 1 Tab, Oral, [id number] atorvastatin 40 mg tab 40 mg 1 Tab, Oral, At Bedtime cefTRIAXone 1 Gram, IV Piggyback, [id number] insulin glargine 1 unit/0.01 mL inj 5 [...] list: Medical Atrial fibrillation / SNOMED CT 98015667 / Confirmed CAD - Coronary artery disease / SNOMED CT 2770046366 / Confirmed Cardiomyopathy / SNOMED CT 957634124 / Confirmed Acute cerebrovascular accident (CVA) / SNOMED CT 478856876 / Confirmed History of obstructive sleep apnea / IMO 22807341 / Confirmed HLD - Hyperlipidemia / SNOMED CT 915649772 / Confirmed HTN - Hypertension / SNOMED CT 6524824870 / Confirmed Type 2 diabetes mellitus / SNOMED CT 964132048 / Confirmed, Active Problems (20) Acute cerebrovascular [...] EDT Height Source Stated Height Entry Format [place] Height/Length, ESTONIAN (ft) 5 ft Height/Length ESTONIAN 9 Inch CLINICALHEIGHT 175.26 cm [place] Body Weight 70 kg Weight Source Bed scale Weight Entry Format [place] Weight Bahraini lb 187 lb CLINICALWEIGHT 85 kg Body Surface Area (BSA) 2.01 m2 Body Mass Index 27.7 kg/m2 HI 04/22/2022 9:15 EDT Height Source Stated Height Entry Format [place] Height/Length, ESTONIAN (ft) 5 ft Height/Length ESTONIAN 9 Inch CLINICALHEIGHT 175.26 cm [place] Body Weight 69.73 kg Weight Source, ED Critical estimated dosing weight Weight Entry Format [place] Weight [place]i lb 187 lb CLINICALWEIGHT 85 kg Body [...] Gastrointestinal: Soft, Non-tender, Non-distended. Integumentary: Warm, Dry, [place]. Neurologic: Alert, Oriented, No focal deficits. Psychiatric: [...] renal diet. - No emergent need of BOOK SHELVER. Will follow. Electronically signed by Brittany, [facility] Conversion Heading Repairer Cerner at 01/24/2023 10:46 AM CDT documented in this encounter Plan of Treatment Not on file documented as of this encounter Visit Diagnoses Not on filedocumented in this encounter Care Teams Power Ballast Machine Operator Relationship Specialty Start Date End Date Marielos Amaral APRN [address] [address] PCP - General Nurse Practitioner 08/18/23 documented as of this encounter
--- OUTSIDE RECORDS SUMMARY | 2025-05-19 12:24 | XMS_ITS | Encounter Summary ---
Author Organization [employer] ([place], [place], [place], [place]) Address [address] [place] [address] Care Team Providers Care Associate Financial Planner Name Role Phone Marielos Amaral KAYE Primary Care Provider Encounter Details Date Type Department Care Team (Late st Contact Info) Description 10/15/2019 Transcribed Document [facility] [place] Family Medicine [address] [place] [address] ProviderHaroldo MD [address] [place] [address] Social History Tobacco Use Types Packs/Day Years Used Date Smoking Tobacco: Never Assessed Sex and Gender Information Value Date Recorded Sex Assigned at Not on file Legal Sex Male 3:45 PM CDT Gender Identity Not on file Sexual Orientation Not on file documented as of this encounter Miscellaneous Notes * Cerner Conversion Note - Haroldo ProviderMD - 10/15/2019 12:13 PM ECOLOGY TEACHER Treatment Intervention, PT Entered On: 10/17/2019 11:02 [...] ZACKARY HENDERSON, PT - 10/17/2019 10:56 EST [facility] Goals Ambulation LTG Grid Goal #1 Device [...] ZACKARY HENDERSON PT - 10/17/2019 10:56 EST [place] PT Charges PT Therap. Exercise 15 min : 1 ZACKARY HENDERSON PT - 10/17/2019 10:56 EST Electronically signed by Renetta Soto Conversion Adjunct Political Science Instructor [employer] at 01/24/2023 10:24 AM CDT documented in this encounter Plan of Treatment Not on file documented as of this encounter Visit Diagnoses Not on filedocumented in this encounter Care Teams Associate Financial Planner Relationship Specialty Start Date End Date Marielos Amaral APRN [address] [place] [address] [phone] PCP - General Nurse Practitioner 08/18/23 documented as of this encounter
--- OUTSIDE RECORDS SUMMARY | 2025-05-19 12:24 | XMS_ITS | Encounter Summary ---
Author Organization [employer] ([place], [place], [place], [place]) Address [address] [place] [address] Care Team Providers Care Book Retailer Name Role Phone Marielos Amaral KAYE Primary Care Provider [phone] Encounter Details Date Type Department Care Team (Late st Contact Info) Description 10/14/2019 Transcribed Document [facility] [place] Family Medicine [address] [place] [address] ProviderHaroldo MD [address] [place] [address] Social History Tobacco Use Types Packs/Day Years Used Date Smoking Tobacco: Never Assessed Sex and Gender Information Value Date Recorded Sex Assigned at Not on file Legal Sex Male 3:45 PM CDT Gender Identity Not on file Sexual Orientation Not on file documented as of this encounter Miscellaneous Notes * Cerner Conversion Note - Haroldo Warren MD - 10/14/2019 5:07 PM BALL WARPER TENDER DATE OF CONSULTATION: 10/14/2019 NEUROLOGY CONSULTATION REASON [...] left. Otherwise, sensation intact, not ataxic with [id number]. Deep tendon reflexes were not assessed in [...] been spent in evaluation of this patient. /[id number] MD NABEEL Mcdermott/JEAN PAUL / NABEEL / MOHSEN /[id number] Electronically signed by Brittany, [facility] Conversion Hairspring Staker Cerner at 01/24/2023 10:43 AM CDT documented in this encounter Plan of Treatment Not on file documented as of this encounter Visit Diagnoses Not on filedocumented in this encounter Care Teams Book Retailer Relationship Specialty Start Date End Date Marielos Amaral APRN [address] [id number] PCP - General Nurse Practitioner 08/18/23 documented as of this encounter
--- OUTSIDE RECORDS SUMMARY | 2025-05-19 12:24 | XMS_ITS | Encounter Summary ---
Author Organization [employer] ([place], [place], [place], [place]) Address [address] [place] [address] Care Team Providers Care Crate Repairer Name Role Phone Marielos Amaral KAYE Primary Care Provider Encounter Details Date Type Department Care Team (Late st Contact Info) Description 10/15/2019 Transcribed Document [facility] [place] Family Medicine [address] [place] [address] ProviderHaroldo MD [address] [place] [address] Social History Tobacco Use Types Packs/Day Years Used Date Smoking Tobacco: Never Assessed Sex and Gender Information Value Date Recorded Sex Assigned at Not on file Legal Sex Male 3:45 PM CDT Gender Identity Not on file Sexual Orientation Not on file documented as of this encounter Miscellaneous Notes * Cerner Conversion Note - Haroldo ProviderMD - 10/15/2019 3:24 PM MACHINE WELT BUTTER Initial Discharge Planning Entered On: 10/15/2019 15:26 EST Performed On: 10/15/2019 15:24 EST by HARITHA BARRIOS Rn-Gear Repair Supervisor Initial Assessment I Previously Documented Living Environment : No qualifying data available. HARITHA BARRIOS Rn-Gear Repair Supervisor - 10/15/2019 15:26 EST Living Situation : [...] Listed? : Yes Medical Durable Power of Mrp Controller Name : None on file Legal Guardian : No Is Guardianship Needed : No HARITHA BARRIOS Rn-Gear Repair Supervisor - 10/15/2019 15:24 EST Initial Assessment II Sensory and Motor Deficits : None Current Home Treatments and Equipment : Bedside commode, Blood glucose monitor, Cane, CPAP, Shower chair, Walker HARITHA BARRIOS Rn-Gear Repair Supervisor - 10/15/2019 15:24 EST Discharge Needs I Anticipated Discharge Date : 10/16/2019 EST Anticipated Discharge To, CM : Home with family care Current Home Treatment/Equipment : Current Home Treatment/Equipment No qualifying data available. Post Acute/Home Treatments : Blood glucose monitor, CPAP, Shower chair, Walker Documentation Status Complete : Yes HARITHA BARRIOS Rn-Gear Repair Supervisor - 10/15/2019 15:24 EST Discharge Needs II Professional Skilled Services : Professional Skilled Services No qualifying data available. Needs Assistance with Transportation : No Discharge Options Discussed with Patient : Discharge transportation, DME, Home Health HARITHA BARRIOS Rn-Gear Repair Supervisor - 10/15/2019 15:24 EST Narrative Note Narrative [...] over the weekend. IM completed. HARITHA BARRIOS Rn-Gear Repair Supervisor - 10/15/2019 15:26 EST documented in this encounter Plan of Treatment Not on file documented as of this encounter Visit Diagnoses Not on filedocumented in this encounter Care Teams Crate Repairer Relationship Specialty Start Date End Date Marielos Amaral APRN [address] [address] PCP - General Nurse Practitioner 08/18/23 documented as of this encounter
--- OUTSIDE RECORDS SUMMARY | 2025-05-19 12:24 | XMS_ITS | Encounter Summary ---
Author Organization [employer] ([place], [place], [place], [place]) Address [address] [place] [address] Care Team Providers Care Gas Engine Mechanic Name Role Phone Marielos Amaral KAYE Primary Care Provider Encounter Details Date Type Department Care Team (Late st Contact Info) Description 10/14/2019 Transcribed Document [facility] [place] [address] [place] [address] ProviderHaroldo MD [address] [place] [address] Social History Tobacco Use Types Packs/Day Years Used Date Smoking Tobacco: Never Assessed Sex and Gender Information Value Date Recorded Sex Assigned at Not on file Legal Sex Male 3:45 PM CDT Gender Identity Not on file Sexual Orientation Not on file documented as of this encounter Miscellaneous Notes * Cerner Conversion Note - Haroldo ProviderMD - 10/14/2019 4:59 PM EDGE BASTER Spiritual Care Assessment Entered On: 10/15/2019 10:42 EST Performed On: 10/15/2019 10:35 EST by JORDYN HART General Information Referred by : Physician Referral Reason Comment : Code Stroke Ministry Provided to : Patient, Family/Significant other Bahai Preference : No advent JORDYN HART - 10/15/2019 10:37 EST Spiritual [...] previous family members who were in [facility]. She has been here many times with several family members being patients down through many years. Signed By: LUCY SANDERS Chaplain Spiritual Assessment Comment/Summary 10/14/19 20:18:00 responded to code stroke page @ 16:00. supportive presence and conversation with patient's , Enriqueta. 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 Signed By: LUCY SANDERS Chaplain [facility], WOODMAN - 10/15/2019 10:37 EST Electronically signed by Brittany [facility] Conversion Director Semiconductor Cerner at 01/24/2023 10:37 AM CDT documented in this encounter Plan of Treatment Not on file documented as of this encounter Visit Diagnoses Not on filedocumented in this encounter Care Teams Gas Engine Mechanic Relationship Specialty Start Date End Date Marielos Amaral APRN [address] [place] [address] PCP - General Nurse Practitioner 08/18/23 documented as of this encounter
--- OUTSIDE RECORDS SUMMARY | 2025-05-19 12:24 | XMS_ITS | Encounter Summary ---
Author Organization [employer] ([place], [place], [place], [place]) Address [address] [place] [address] Care Team Providers Care Outreach Consultant Name Role Phone Marielos Amaral KAYE Primary Care Provider Encounter Details Date Type Department Care Team (Late st Contact Info) Description 10/15/2019 Transcribed Document [facility] [place] Family Medicine [address] [place] [address] ProviderHaroldo MD [address] [place] [address] Social History Tobacco Use Types Packs/Day Years Used Date Smoking Tobacco: Never Assessed Sex and Gender Information Value Date Recorded Sex Assigned at Not on file Legal Sex Male 3:45 PM CDT Gender Identity Not on file Sexual Orientation Not on file documented as of this encounter Miscellaneous Notes * Cerner Conversion Note - Haroldo ProviderMD - 10/15/2019 5:00 AM EXPERIMENTAL WORKER Chart Check - Review Order Profile Entered On: 10/15/2019 5:49 EST Performed On: 10/15/2019 5:00 EST by Kristofer Barr Rn Chart Check Powerplans Initiated/Discontinued as Appropriate : Yes All Active Orders Reviewed : Yes Kristofer Barr Rn - 10/15/2019 5:49 EST Electronically signed by Brittany [facility] Conversion Laminate Floor Installer Cerner at 01/24/2023 10:21 AM CDT documented in this encounter Plan of Treatment Not on file documented as of this encounter Visit Diagnoses Not on filedocumented in this encounter Care Teams Outreach Consultant Relationship Specialty Start Date End Date Marielos Amaral, PLASTIC CNC MACHINE OPERATOR [address] [place] [address] PCP - General Nurse Practitioner 08/18/23 documented as of this encounter
--- OUTSIDE RECORDS SUMMARY | 2025-05-19 12:24 | XMS_ITS | Encounter Summary ---
Author Organization [employer] ([place], [place], [place], [place]) Address [address] [place] [address] Care Team Providers Care On Site Services Specialist Name Role Phone Munir Marielos RESTREPO Primary Care Provider Encounter Details Date Type Department Care Team (Late st Contact Info) Description 04/23/2022 Transcribed Document [facility] [place] Family Medicine [address] [place] [address] ProviderHaroldo MD [address] [place] [address] Social History Tobacco Use Types [...] Do you speak a language other than Chilean at [facility]? Yes 10/30/2024 Do you [...] On: 04/23/2022 23:32 EDT by TYSHAWN RIGGINS, RN-Ticket Collector Or Usher ED Care Management Progress Note Discharge Arrangements : Patient Post-Acute Information Patient Name: ZACKARY ANTOINE Gender: Male : 52 Age: 71 Years No Post-Acute Placement(s) Listed No Post-Acute Service(s) Listed No Cur[place] Referral(s) Listed TYSHAWN RIGGINS, RN-Ticket Collector Or Usher ED - 04/23/2022 23:32 EDT Narrative Progress Note Narrative Progress Note : Dx: a/c renal failure poa with metabolic acidosis, UTI, hyponatremia HPI: presents to [facility] with d/o weakness, sliding from [...] eval, lives home with , 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 CM attempted to meet with pt this evening for CM eval, but pt sleeping soundly. CM will need to f/u with pt for full CM eval and send referrals as appropriate, as pt will likely benefit from HH vs inpt rehab. TYSHAWN RIGGINS, RN-Ticket Collector Or Usher ED - 04/23/2022 23:32 EDT documented in this encounter Plan of Treatment Not on file documented as of this encounter Visit Diagnoses Not on filedocumented in this encounter Care Teams On Site Services Specialist Relationship Specialty Start Date End Date Marielos Amaral, BUSINESS TECHNOLOGY TEACHER [address] [phone] PCP - General Nurse Practitioner 08/18/23 documented as of this encounter
--- OUTSIDE RECORDS SUMMARY | 2025-05-19 12:24 | XMS_ITS | Encounter Summary ---
Author Organization [employer] ([place], [place], [place], [place]) Address [address] [place] [address] Care Team Providers Care Receiving And Processing Supervisor Name Role Phone Munir Marielos RESTREPO Primary Care Provider Encounter Details Date Type Department Care Team (Late st Contact Info) Description 04/23/2022 Transcribed Document [facility] [place] [address] [place] [address] ProviderHaroldo MD [address] [place] [address] Social History Tobacco Use Types [...] Do you speak a language other than [place] at [facility]? Yes 10/30/2024 Do you want help with [...] Yes LAURAPAULO, GUNNAR/Melvin - 04/24/2022 15:57 EDT Residential Goals, OT Grooming LTG Grid Goal #1 [...] PAULO LAURA OTR/Melvin - 04/24/2022 15:57 EDT [place] OT Charges OT Ther Activities Ea 15 Min : 1 PAULO LAURA OTR/Melvin - 04/24/2022 15:57 EDT Electronically signed by Brittany [facility] Conversion Pediatric Sports Medicine Specialist Cerner at 01/24/2023 10:39 AM CDT documented in this encounter Plan of Treatment Not on file documented as of this encounter Visit Diagnoses Not on filedocumented in this encounter Care Teams Receiving And Processing Supervisor Relationship Specialty Start Date End Date Marielos Amaral, KAYE [address] [place] [address] PCP - General Nurse Practitioner 08/18/23 documented as of this encounter
--- OUTSIDE RECORDS SUMMARY | 2025-05-19 12:24 | XMS_ITS | Encounter Summary ---
Author Organization [employer] ([place], [place], [place], [place]) Address [address] [place] [address] Care Team Providers Care Assistant Technician Name Role Phone MunirMarlyMarielos KAYE Primary Care Provider Encounter Details Date Type Department Care Team (Late st Contact Info) Description 10/14/2019 Transcribed Document [facility] [place] Family Medicine [address] [place] [address] ProviderHaroldo MD [address] [place] [address] Social History Tobacco Use Types Packs/Day Years Used Date Smoking Tobacco: Never Assessed Sex and Gender Information Value Date Recorded Sex Assigned at Not on file Legal Sex Male 3:45 PM CDT Gender Identity Not on file Sexual Orientation Not on file documented as of this encounter Miscellaneous Notes * Cerner Conversion Note - Historical ProviderMD - 10/14/2019 8:26 PM AUTOBODY TECHNICIAN Consult Phone Call Documentation Entered On: 10/15/2019 8:29 EST Performed On: 10/14/2019 20:26 EST by ДМИТРИЙ JACK Phone Call for Consults Consult Phone Call/Page Attempt : First call Physician Requested for Consult : HERI LESLIE APRN Provider Service Notified Name : Cardiology ДМИТРИЙ JACK - 10/15/2019 8:28 EST Electronically signed by Brittany [facility] Conversion Footwear Sales Associate Cerner at 01/24/2023 10:46 AM CDT documented in this encounter Plan of Treatment Not on file documented as of this encounter Visit Diagnoses Not on filedocumented in this encounter Care Teams Assistant Technician Relationship Specialty Start Date End Date Marielos Amaral, TRANSPLANT NURSE [address] [place] [address] PCP - General Nurse Practitioner 08/18/23 documented as of this encounter
--- OUTSIDE RECORDS SUMMARY | 2025-05-19 12:25 | XMS_ITS | Encounter Summary ---
Author Organization [facility] ([place], [place], [place], [place]) Address [address] [place] [address] Care Team Providers Care Style Advisor Name Role Phone Marielos Amaral KAYE Primary Care Provider Encounter Details Date Type Department Care Team (Late st Contact Info) Description 02/09/2019 Transcribed Document [facility] [place] [address] [place] [address] ProviderHaroldo MD [address] [place] [address] Social History Tobacco Use Types Packs/Day Years [...] Plan: [employer] GOLD PLUS HMO Policy Number: [id number] Authorization Number: PENDING IP Insurance Primary Name : [employer] Choice Authorization Status-Primary : Notification only Auth/Referral Contact Name-Primary : Wenceslao Curran Authorization Number-Primary : [id number] Authorized Service Begin Date-Primary : 02/05/2019 EDT Observation Authorization Nbr-Primary : [id number] submitted for inpatient Historical Authorization Comments-Primary : Comment 1: inpt auth is pending per [employer]ity trans id# [id number] (DIONE REY, Bus Driver 02/08/2019 09:43) Comment 2: setup case for IP on availity. faxed clinicals via cerner. (GEGE JUÁREZ RN 02/07/2019 11:56) Comment 3: setup on availity obs approved. (GEGE JUÁREZ RN 02/06/2019 08:52) Mary Haynes Rn-Utilization Review - 02/09/2019 9:09 EDT Electronically signed by Renetta Soto Conversion Manufacturing Plant Controller Cerner at 01/24/2023 10:34 AM CDT documented in this encounter Plan of Treatment Not on file documented as of this encounter Visit Diagnoses Not on filedocumented in this encounter Care Teams Style Advisor Relationship Specialty Start Date End Date Marielos Amaral, CUSHION ASSEMBLER [address] [phone] PCP - General Nurse Practitioner 08/18/23 documented as of this encounter
--- OUTSIDE RECORDS SUMMARY | 2025-05-19 12:25 | XMS_ITS | Encounter Summary ---
Author Organization [employer] ([place], [place], [place], [place]) Address [address] [place] [address] Care Team Providers Care Aluminum Siding Mechanic Name Role Phone Marielos Amaral KAYE Primary Care Provider [phone] Encounter Details Date Type Department Care Team (Late st Contact Info) Description 04/14/2019 Transcribed Document [facility] [place] [address] [place] [address] ProviderHaroldo MD [address] [place] [address] Social History Tobacco Use Types Packs/Day Years [...] Source : Stated Height Entry Format : Waka Height, Feet : 5 ft(Converted to: 152 cm, 60 Inch) Height, Inches : 9 Inch(Converted to: 0 ft 9 Inch, 22.86 cm) Clinical Height : 175.26 cm Weight Source : Standing scale Weight Entry Format : Waka Clinical Dosing Weight : 79.66 kg Weight, Pounds : 175 lb Weight, Ounces : 4 oz Body Surface Area (BSA) : 1.95 m2 Body Mass Index : 25.9 kg/m2 (HI) [place] Body Weight : 70 kg MIKO GALLAGHER [...] Daughter Legal Guardian : No Support Person/Patient Enterprise Systems Engineer : Yes Support Person/Pt Rep Name : Enriqueta - Contact Password : peanut Support Person/Pt Rep Contact Information : [phone] Want Family/Rep/Phys Notified of Admit : Yes [...] Obtained From : Patient Primary Language : Wallisian Communication Barrier : None Objects to Sharing [...] Scale Risk Level : 0-24 Low Risk [place] Fall Interventions : Adequate lighting, Bed [...] of the form. Electronically signed by Brittany [facility] Conversion College Associate Cerner at 01/24/2023 10:19 AM CDT documented in this encounter Plan of Treatment Not on file documented as of this encounter Visit Diagnoses Not on filedocumented in this encounter Care Teams Aluminum Siding Mechanic Relationship Specialty Start Date End Date Marielos Amaral, PERLITE GRINDER [address] [place] [address] PCP - General Nurse Practitioner 08/18/23 documented as of this encounter
--- OUTSIDE RECORDS SUMMARY | 2025-05-19 12:25 | XMS_ITS | Encounter Summary ---
Author Organization [employer] ([place], [place], [place], [place]) Address [address] [place] [address] Care Team Providers Care Surveillance Camera Technician Name Role Phone Marielos Amaral AMERICAN STUDIES PROFESSOR Primary Care Provider Encounter Details Date Type Department Care Team (Late st Contact Info) Description 03/23/2019 Transcribed Document [address] [address] Camilo Steven MD [address] [place] [address] Social History Tobacco Use Types Packs/Day Years [...] ] Cardiac monitoring 02/06 Orders: Cardiac Monitoring Graphics Coordinator Signature: Nahomy Nieves CCS Phone #: [phone] Date/Time: 03/23/2019 / 13:25 CT This is a permanent part of the Medical Record documented in this encounter Plan of Treatment Not on file documented as of this encounter Visit Diagnoses Not on filedocumented in this encounter Care Teams Surveillance Camera Technician Relationship Specialty Start Date End Date Marielos Amaral, AMERICAN STUDIES PROFESSOR [address] [place] [address] PCP - General Nurse Practitioner 08/18/23 documented as of this encounter
--- OUTSIDE RECORDS SUMMARY | 2025-05-19 12:25 | XMS_ITS | Encounter Summary ---
Author Organization [employer] ([place], [place], [place], [place]) Address [address] [place] [address] Care Team Providers Care Domestic Cleaner Name Role Phone Munir Marielos RESTREPO Primary Care Provider Encounter Details Date Type Department Care Team (Late st Contact Info) Description 04/22/2022 Transcribed Document [facility] [place] [address] [place] [address] ProviderHaroldo MD [address] [place] [address] Social History Tobacco Use Types [...] Do you speak a language other than Mosotho at [facility]? Yes 10/30/2024 Do you want help [...] USHA REICH, PT - 04/23/2022 13:50 EDT Monitor Worker Goals Mobility/Bed Mobility LTG PT Grid Goal [...] USHA REICH PT - 04/23/2022 15:19 EDT [place] PT Charges PT Ther Activities Ea 15 Min : 1 PT Eval Low Complexity : 1 USHA REICH PT - 04/23/2022 15:19 EDT documented in this encounter Plan of Treatment Not on file documented as of this encounter Visit Diagnoses Not on filedocumented in this encounter Care Teams Domestic Cleaner Relationship Specialty Start Date End Date Marielos Amaral APRN [address] [address] PCP - General Nurse Practitioner 08/18/23 documented as of this encounter
--- OUTSIDE RECORDS SUMMARY | 2025-05-19 12:25 | XMS_ITS | Referral Summary ---
Author Organization [employer] ([place], [place], [place], [place]) Address [address] [place] [address] Care Team Providers Care Addiction Social Worker Name Role Phone AmaralMarielos roque KAYE [...] Immunizations Name Administration Dates Next Due INFLUENZA(FLUCELVAX)_0.5 mL(6MOS+)TRI(QIJ306) Social History Tobacco Use Types Packs/Day Years [...] speak a language other than Filipino at [facility]? [...] Nonreactive Nonreactive, Equivocal 09/15/2024 4:51 PM EST [facility] Hep B C IgM Nonreactive Nonreactive 09/15/2024 4:51 PM EST [facility] Hepatitis B surface antigen Nonreactive Nonreactive, Equivocal 09/15/2024 4:51 PM EST [facility] Hepatitis C Ab Nonreactive Nonreactive, Equivocal 09/15/2024 4:51 PM EST [facility] Blood Venipuncture / Unknown 09/15/2024 2:53 PM EST 09/15/2024 3:10 PM EST [facility] - 09/15/2024 4:51 PM EST [...] MD LAB BLOOD ORDERABLES Final Re sult [facility] [address] [place] [address], [facility] [phone] from Last 3 Months or Most Recently Relevant to Health Maintenance [facility] Advance Directives For more information, please contact: [phone] * Full Code (Latest Code Status on [...] Enriqueta Danilo Spouse Healthcare Decision-Maker Care Teams Addiction Social Worker Relationship Specialty Start Date End Date Marielos Amaral, RETAIL SHIFT LEADER [address] [place] [address] PCP - General Nurse Practitioner 08/18/23
--- OUTSIDE RECORDS SUMMARY | 2025-05-19 12:25 | XMS_ITS | Encounter Summary ---
Author Organization [employer] ([place], [place], [place], [place]) Address [address] [place] [address] Care Team Providers Care Quality Assurance Supervisor Body Name Role Phone Marielos Amaral KAYE Primary Care Provider [phone] Encounter Details Date Type Department Care Team (Late st Contact Info) Description 10/14/2019 Transcribed Document [facility] [place] [facility] [place] [address] ProviderHaroldo MD [address] [place] [address] Social History Tobacco Use Types Packs/Day Years Used Date Smoking Tobacco: Never Assessed Sex and Gender Information Value Date Recorded Sex Assigned at Not on file Legal Sex Male 3:45 PM CDT Gender Identity Not on file Sexual Orientation Not on file documented as of this encounter Miscellaneous Notes * Cerner Conversion Note - Haroldo ProviderMD - 10/14/2019 6:15 PM REAL ESTATE LEGAL SECRETARY ED Discharge Entered On: 10/14/2019 19:02 EST Performed On: 10/14/2019 18:15 EST by Ivone Damon music specialist Process Patient Disposition : Admit/Observe Personal Belongings With Patient : Yes Patient Education Completed : Yes Teaching Evaluation : Verbalizes understanding IV Discontinued : No Nursing Documentation Completed : Yes Ivone Damon, RN - 10/14/2019 19:01 EST Admission, ED Nurse Report Accepted By : VP CONSTRUCTION Nurse Report Acceptance Time : 10/14/2019 18:15 EST `Nurse Report (Hand Off) : Called Accompanied By, Discharge : Spouse, Other: RN; monitor Mode Of Departure : Ivone Back RN - 10/14/2019 19:01 EST documented in this encounter Plan of Treatment Not on file documented as of this encounter Visit Diagnoses Not on filedocumented in this encounter Care Teams Quality Assurance Supervisor Body Relationship Specialty Start Date End Date Marielos Amaral, KAYE [address] [place] [address] PCP - General Nurse Practitioner 08/18/23 documented as of this encounter
--- OUTSIDE RECORDS SUMMARY | 2025-05-19 12:25 | XMS_ITS | Encounter Summary ---
Author Organization [employer] ([place], [place], [place], [place]) Address [address] [place] [address] Care Team Providers Care Sausage Grinder Name Role Phone AmaralMarielos roque KAYE Primary Care Provider Encounter Details Date Type Department Care Team (Late st Contact Info) Description 10/14/2019 Transcribed Document [facility] [place] Family Medicine [address] [place] [address] ProviderHaroldo MD [address] [place] [address] Social History Tobacco Use Types Packs/Day Years Used Date Smoking Tobacco: Never Assessed Sex and Gender Information Value Date Recorded Sex Assigned at Not on file Legal Sex Male 3:45 PM CDT Gender Identity Not on file Sexual Orientation Not on file documented as of this encounter Miscellaneous Notes * Cerner Conversion Note - Haroldo ProviderMD - 10/14/2019 8:26 PM COMMERCIAL PRINT SALESMAN Pain Assessment Entered On: 10/15/2019 13:43 EST Performed On: 10/15/2019 10:44 EST by Deysi Valdes RN Intervention Information: acetaminophen Performed by RISA STRANGE on 10/15/2019 09:44:00 EST acetaminophen,650mg Oral,Pain (Mild 1-3) Pain Assessment Pain Assessment : Follow-up assessment Pain Scale Goal : 2 Pain Improved by Intervention : Yes Deysi Valdes RN - 10/15/2019 13:43 EST Electronically signed by Interface, [facility] Conversion Emt Driver Cerner at 01/24/2023 10:30 AM CDT documented in this encounter Plan of Treatment Not on file documented as of this encounter Visit Diagnoses Not on filedocumented in this encounter Care Teams Sausage Grinder Relationship Specialty Start Date End Date Marielos Amaral, KAYE [address] [phone] PCP - General Nurse Practitioner 08/18/23 documented as of this encounter
--- OUTSIDE RECORDS SUMMARY | 2025-05-19 12:25 | XMS_ITS | Encounter Summary ---
Author Organization [employer] ([place], [place], [place], [place]) Address [address] [place] [address] Care Team Providers Care Yard Goods Salesperson Name Role Phone AmaralMarielos KAYE Primary Care Provider Encounter Details Date Type Department Care Team (Late st Contact Info) Description 04/14/2019 Transcribed Document [facility] [place] [address] [place] [address] ProviderHaroldo MD [address] [place] [address] Social History Tobacco Use Types Packs/Day Years [...] on filedocumented in this encounter Care Teams Yard Goods Salesperson Relationship Specialty Start Date End Date Marielos Amaral, KAYE [address] [phone] PCP - General Nurse Practitioner 08/18/23 documented as of this encounter
--- OUTSIDE RECORDS SUMMARY | 2025-05-19 12:25 | XMS_ITS | Encounter Summary ---
Author Organization [employer] ([place], [place], [place], [place]) Address [address] [place] [address] Care Team Providers Care Stretcher Drier Operator Name Role Phone Marielos Amaral KAYE Primary Care Provider Encounter Details Date Type Department Care Team (Late st Contact Info) Description 02/09/[address] [facility] [place] Family Medicine [address] [place] [address] ProviderHaroldo MD [address] [place] [address] Social History Tobacco Use Types Packs/Day Years [...] on filedocumented in this encounter Care Teams Stretcher Drier Operator Relationship Specialty Start Date End Date Marielos Amaral, CREATIVE INTERN [address] [place] [address] PCP - General Nurse Practitioner 08/18/23 documented as of this encounter
--- OUTSIDE RECORDS SUMMARY | 2025-05-19 12:25 | XMS_ITS | Encounter Summary ---
Author Organization [employer] ([place], [place], [place], [place]) Address [address] [place] [address] Care Team Providers Care Print Binding And Finishing Worker Name Role Phone Munir Marielos RESTREPO Primary Care Provider Encounter Details Date Type Department Care Team (Late st Contact Info) Description 04/22/2022 Transcribed Document [facility] [place] Family Medicine [address] [place] [address] ProviderHaroldo MD [address] [place] [address] Social History Tobacco Use Types [...] speak a language other than Portuguese at [facility]? Yes 10/30/2024 Do you [...] On: 04/22/2022 9:15 EDT by ASHLEY DING STABLEHAND Triage Across the Room Chief Complaint : Pt presents via EMS following a syncopal episode. Reprots weakness. Hypotensive upon ED arrival. BP upon arrival was 60 systolic. Received 500mls NS. Hx of CABG and stents. Takes Eliquis. Denies head, neck, ot back pain. 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 Triage Date/Time : 04/22/2022 9:15 EDT ASHLEY DING RN - 04/22/2022 9:15 EDT DCP GENERIC CODE Tracking Acuity : 2 - Emergent Tracking Group : [facility] ED ASHLEY DING RN - 04/22/2022 9:15 EDT Mode of Arrival : Stretcher Transported to ED by : Ambulance/ALS EMS Service : [facility] To Room Via : Stretcher Accompanied By [...] Problems(Active) Acute cerebrovascular accident (CVA) (SNOMED CT :752848838 ) Name of Problem: Acute cerebrovascular accident (CVA) ; Recorder: Roxana Brady RN; Confirmation: Confirmed ; Classification: Medical ; Code: [id number] ; Contributor System: Assay DepotChart ; Last Updated: 04/12/2020 7:03 EDT ; Life Cycle Date: 04/12/2020 ; Life Cycle Status: Active ; Vocabulary: SNOMED CT Angina (SNOMED CT :235289706 ) Name of Problem: Angina ; Recorder: RAVEN REILLY RN; Confirmation: Confirmed ; Classification: Patient Stated ; Code: 723285423 ; Contributor System: PowerChart ; Last Updated: 07/20/2014 9:33 EDT ; Life Cycle Date: 07/20/2014 ; Life Cycle Status: Active ; Vocabulary: SNOMED CT Atrial fibrillation (SNOMED CT :73209533 ) Name of Problem: Atrial fibrillation ; Recorder: MARIO SRIVASTAVA RN; Confirmation: Confirmed ; Classification: Medical ; Code: 41266100 ; Contributor System: PowerChart ; Last Updated: 12/11/2020 13:21 EST ; Life Cycle Status: Active ; Vocabulary: SNOMED CT CAD - Coronary artery disease (SNOMED CT :8703298028 ) Name of Problem: CAD - Coronary artery disease ; Recorder: MARIO SRIVASTAVA RN; Confirmation: Confirmed ; Classification: Medical ; Code: 8963428900 ; Contributor System: PowerChart ; Last Updated: 12/11/2020 13:20 EST ; Life Cycle Status: Active ; Vocabulary: SNOMED CT Cardiomyopathy (SNOMED CT :997533899 ) Name of Problem: Cardiomyopathy ; Recorder: MARIO SRIVASTAVA RN; Confirmation: Confirmed ; Classification: Medical ; Code: 143810096 ; Contributor System: PowerChart ; Last Updated: 12/11/2020 13:20 EST ; Life Cycle Status: Active ; Vocabulary: SNOMED CT Coronary artery disease (SNOMED CT :1617676082 ) Name of Problem: Coronary artery disease ; Recorder: RAVEN REILLY RN; Confirmation: Confirmed ; Classification: Patient Stated ; Code: 3156182166 ; Contributor System: PowerChart ; Last Updated: 07/20/2014 9:33 EDT ; Life Cycle Date: 07/20/2014 ; Life Cycle Status: Active ; Vocabulary: SNOMED CT Diabetes mellitus type II (SNOMED CT :96151962 ) Name of Problem: Diabetes mellitus type II ; Recorder: RAVEN REILLY RN; Confirmation: Confirmed ; Classification: Patient Stated ; Code: 65964204 ; Contributor System: PowerChart ; Last Updated: 07/20/2014 9:35 EDT ; Life Cycle Date: 07/20/2014 ; Life Cycle Status: Active ; Vocabulary: SNOMED CT Enlarged prostate (SNOMED CT :340537087 ) Name of Problem: Enlarged prostate ; Recorder: RAVEN REILLY RN; Confirmation: Confirmed ; Classification: Patient Stated ; Code: 051242495 ; Contributor System: PowerChart ; Last Updated: 07/20/2014 9:34 EDT ; Life Cycle Date: 07/20/2014 ; Life Cycle Status: Active ; Vocabulary: SNOMED CT GERD - Gastro-esophageal reflux disease (SNOMED CT :0532440286 ) Name of Problem: GERD - Gastro-esophageal reflux disease ; Recorder: RAVEN REILLY RN; Confirmation: Confirmed ; Classification: Patient Stated ; Code: 6367295999 ; Contributor System: PowerChart ; Last Updated: 07/20/2014 9:34 EDT ; Life Cycle Date: 07/20/2014 ; Life Cycle Status: Active ; Vocabulary: SNOMED CT Heart failure (SNOMED CT :878872915 ) Name of Problem: Heart failure ; Recorder: RAVEN REILLY RN; Confirmation: Confirmed ; Classification: Patient Stated ; Code: 113278972 ; Contributor System: PowerChart ; Last Updated: 07/20/2014 9:33 EDT ; Life Cycle Date: 07/20/2014 ; Life Cycle Status: Active ; Vocabulary: SNOMED CT Heart murmur (SNOMED CT :085435297 ) Name of Problem: Heart murmur ; Recorder: RAVEN REILLY RN; Confirmation: Confirmed ; Classification: Patient Stated ; Code: 561710663 ; Contributor System: PowerChart ; Last Updated: 07/20/2014 9:33 EDT ; Life Cycle Date: 07/20/2014 ; Life Cycle Status: Active ; Vocabulary: SNOMED CT History of obstructive sleep apnea (IMO :05170404 ) Name of Problem: History of obstructive sleep apnea ; Recorder: SYSTEM, SYSTEM; Confirmation: Confirmed ; Classification: Medical ; Code: 87892427 ; Last Updated: 01/20/2019 12:39 EDT ; Life Cycle Date: 01/20/2019 ; Life Cycle Status: Active ; Vocabulary: IMO HLD - Hyperlipidemia (SNOMED CT :407610211 ) Name of Problem: HLD - Hyperlipidemia ; Recorder: MARIO SRIVASTAVA RN; Confirmation: Confirmed ; Classification: Medical ; Code: 595522646 ; Contributor System: PowerChart ; Last Updated: 12/11/2020 13:20 EST ; Life Cycle Status: Active ; Vocabulary: SNOMED CT HTN - Hypertension (SNOMED CT :3200840086 ) Name of Problem: HTN - Hypertension ; Recorder: MARIO SRIVASTAVA RN; Confirmation: Confirmed ; Classification: Medical ; Code: 6892201697 ; Contributor System: PowerChart ; Last Updated: 12/11/2020 13:20 EST ; Life Cycle Status: Active ; Vocabulary: SNOMED CT Hyperlipidemia (SNOMED CT :53394521 ) Name of Problem: Hyperlipidemia ; Recorder: RAVEN REILLY RN; Confirmation: Confirmed ; Classification: Patient Stated ; Code: 91611183 ; Contributor System: PowerChart ; Last Updated: 09/03/2017 13:38 EST ; Life Cycle Date: 07/20/2014 ; Life Cycle Status: Active ; Vocabulary: SNOMED CT Hypertension (SNOMED CT :96607013 ) Name of Problem: Hypertension ; Recorder: RAVEN REILLY RN; Confirmation: Confirmed ; Classification: Patient Stated ; Code: 78014511 ; Contributor System: PowerChart ; Last Updated: 07/20/2014 9:33 EDT ; Life Cycle Date: 07/20/2014 ; Life Cycle Status: Active ; Vocabulary: SNOMED CT Impaired vision (SNOMED CT :84612040 ) Name of Problem: Impaired vision ; Recorder: RAVEN REILLY RN; Confirmation: Confirmed ; Classification: Patient Stated ; Code: 07294514 ; Contributor System: Assay DepotChart ; Last Updated: 07/20/2014 9:32 EDT ; Life Cycle Date: 07/20/2014 ; Life Cycle Status: Active ; Vocabulary: SNOMED CT Migraine (SNOMED CT :29132065 ) Name of Problem: Migraine ; Recorder: RAVEN REILLY RN; Confirmation: Confirmed ; Classification: Patient Stated ; Code: 94732960 ; Contributor System: PowerChart ; Last Updated: 07/20/2014 9:35 EDT ; Life Cycle Date: 07/20/2014 ; Life Cycle Status: Active ; Vocabulary: SNOMED CT Stented coronary artery (SNOMED CT :2515874218 ) Name of Problem: Stented coronary artery ; Recorder: RAVEN REILLY RN; Confirmation: Confirmed ; Classification: Patient Stated ; Code: 2363463102 ; Contributor System: mNectar ; Last Updated: 07/20/2014 9:33 EDT ; Life Cycle Date: 07/20/2014 ; Life Cycle Status: Active ; Vocabulary: SNOMED CT Type 2 diabetes mellitus (SNOMED CT :687945112 ) Name of Problem: Type 2 diabetes mellitus ; Recorder: MARIO SRIVASTAVA RN; Confirmation: Confirmed ; Classification: Medical ; Code: 695916656 ; Contributor System: PowerChart ; Last Updated: 12/11/2020 13:20 EST ; Life Cycle Status: Active ; Vocabulary: SNOMED CT Diagnoses(Active) Syncope/Near syncope Date: 04/22/2022 ; Diagnosis Type: Reason For Visit ; Confirmation: Complaint of ; Clinical Dx: Syncope/Near syncope ; Classification: Medical ; Clinical Service: Emergency medicine ; Code: PNED ; Probability: 0 ; Diagnosis Code: [id number] ED Height and Weight Height Source : Stated Height Entry Format : [place] Height, Feet : 5 ft(Converted to: 152 cm, 60 Inch) Height, Inches : 9 Inch(Converted to: 0 ft 9 Inch, 22.86 cm) Clinical Height : 175.26 cm Weight Source, ED : Critical estimated dosing weight Weight Entry Format : [place] Weight, Pounds : 187 lb Clinical Dosing Weight : 85 kg Body Surface Area (BSA) : 2.01 m2 Body Mass Index : 27.7 kg/m2 (HI) [place] Body Weight (IBW) : 69.73 kg ASHLEY DING RN - 04/22/2022 9:15 EDT documented in this encounter Plan of Treatment Not on file documented as of this encounter Visit Diagnoses Not on filedocumented in this encounter Care Teams Print Binding And Finishing Worker Relationship Specialty Start Date End Date Marielos Amaral APRN [address] [address] PCP - General Nurse Practitioner 08/18/23 documented as of this encounter
--- OUTSIDE RECORDS SUMMARY | 2025-05-19 12:25 | XMS_ITS | Encounter Summary ---
Author Organization [employer] ([place], [place], [place], [place]) Address [address] [place] [address] Care Team Providers Care Goldsmith Apprentice Name Role Phone Marielos Amaral KAYE Primary Care Provider Encounter Details Date Type Department Care Team (Late st Contact Info) Description 10/14/2019 Transcribed Document [facility] [place] Family Medicine [address] [place] [address] ProviderHaroldo MD [address] [place] [address] Social History Tobacco Use Types Packs/Day Years Used Date Smoking Tobacco: Never Assessed Sex and Gender Information Value Date Recorded Sex Assigned at Not on file Legal Sex Male 3:45 PM CDT Gender Identity Not on file Sexual Orientation Not on file documented as of this encounter Miscellaneous Notes * Cerner Conversion Note - Haroldo ProviderMD - 10/14/2019 4:59 PM SERVOMECHANISM DESIGNER Evaluation, Physical Therapy Entered On: 10/15/2019 11:08 [...] EST Lower Extremity RLE Active ROM : [facility] LLE Active ROM : [facility] EHSAN CONTRERAS, PT 10/15/2019 12:02 EST [...] EHSAN CONTRERAS, PT - 10/15/2019 12:02 EST Intermediate Goals Ambulation LTG Grid Goal #1 Device [...] EHSAN CONTRERAS, PT - 10/15/2019 12:02 EST [place] PT Charges PT Eval Moderate Complexity : 1 EHSAN CONTRERAS, PT - 10/15/2019 12:02 EST documented in this encounter Plan of Treatment Not on file documented as of this encounter Visit Diagnoses Not on filedocumented in this encounter Care Teams Goldsmith Apprentice Relationship Specialty Start Date End Date Marielos Amaral, KAYE [address] [address] PCP - General Nurse Practitioner 08/18/23 documented as of this encounter
--- OUTSIDE RECORDS SUMMARY | 2025-05-19 12:25 | XMS_ITS | Encounter Summary ---
Author Organization [employer] ([place], [place], [place], [place]) Address [address] [place] [address] Care Team Providers Care Application Packaging Consultant Name Role Phone Marielos Amaral KAYE Primary Care Provider Encounter Details Date Type Department Care Team (Late st Contact Info) Description 02/09/2019 Transcribed Document [facility] [place] Family Medicine [address] [place] [address] ProviderHaroldo MD [address] [place] [address] Social History Tobacco Use Types Packs/Day Years [...] 02/09/2019 14:15 EDT Electronically signed by Brittany [facility] Conversion Compliance Director Cerner at 01/24/2023 10:39 AM CDT documented in this encounter Plan of Treatment Not on file documented as of this encounter Visit Diagnoses Not on filedocumented in this encounter Care Teams Application Packaging Consultant Relationship Specialty Start Date End Date Marielos Amaral, ARCHIVES DIRECTOR [address] [place] [address] PCP - General Nurse Practitioner 08/18/23 documented as of this encounter
--- OUTSIDE RECORDS SUMMARY | 2025-05-19 12:25 | XMS_ITS | Encounter Summary ---
Author Organization [employer] ([place], [place], [place], [place]) Address [address] [address] Care Team Providers Care Vp Client Services Name Role Phone Marielos Amaral KAYE Primary Care Provider [phone] Encounter Details Date Type Department Care Team (Late st Contact Info) Description 10/14/[address] [facility] [place] Family Medicine [address] [place] [address] ProviderHaroldo MD [address] [place] [address] Social History Tobacco Use Types Packs/Day Years Used Date Smoking Tobacco: Never Assessed Sex and Gender Information Value Date Recorded Sex Assigned at Not on file Legal Sex Male 3:45 PM CDT Gender Identity Not on file Sexual Orientation Not on file documented as of this encounter Miscellaneous Notes * Cerner Conversion Note - Haroldo ProviderMD - 10/14/2019 6:06 PM ADMITTING MANAGER Rapid Response Team Documentation Entered On: 10/14/2019 [...] : Transfer to critical care Rapid Response Vp Client Services #1 : MAYLIN TOMLIN RN EGLESTON, JEREMY W, RN - 10/14/2019 18:06 EST Rapid Response Systems Assessment Oxygen Therapy Mode : Room air Angioedema Present : No [place] Best Motor Response : Obey commands [place] Best Verbal Response : Oriented [place] Eye Opening Response : Spontaneous [place] Coma Score : 15 Level of Consciousness [...] (7) : Absent NIH Sensory (8) : [id number] sensory loss NIH Best Language (9) : [...] filedocumented in this encounter Care Teams Vp Client Services Relationship Specialty Start Date End Date Marielos Amaral APRN [address] [address] PCP - General Nurse Practitioner 08/18/23 documented as of this encounter
--- OUTSIDE RECORDS SUMMARY | 2025-05-19 12:25 | XMS_ITS | Encounter Summary ---
Author Organization [employer] ([place], [place], [place], [place]) Address [address] [place] [address] Care Team Providers Care Incident Response Coordinator Name Role Phone Marielos Amaral APRN Primary Care Provider Encounter Details Date Type Department Care Team (Late st Contact Info) Description 04/14/2019 Transcribed Document [facility] [place] [address] [place] [address] ProviderHaroldo MD [address] [place] [address] Social History Tobacco Use Types Packs/Day Years [...] ELINADEION /Sex: 1950 Male Med Rec #: [id number] Physician: PRINCESS DOCKERY MD-GAE Financial #: [id number] Pt. Type: O Room/Bed: Admit/Disch: 04/14/19 14:02:00 - Institution: [facility] Endo - Case Attendance Entry 1 Entry 2 Entry 3 Case Attendee PRINCESS DOCKERY Bicknell, Ashley, RN OCTAVIA NORRIS MD MD-GAE Role Performed Surgeon/Proceduralist, Coordinating Producer, First Anesthesiologist First Time In 04/14/19 16:31:00 [...] Modified By: Ivone Humphreys RN 04/14/19 16:38:58 [facility] Endo - Case Attendance Audit 04/14/19 16:38:58 Clay Transporter: BICKNEA Modifier: BICKNEA 1 <+> Time Out 1 <*> Procedure Esophageal Biopsy, EGD w Radiofrequency Ablation 2 <+> Time Out 2 <*> Procedure Esophageal Biopsy, EGD w Radiofrequency Ablation 3 <+> Time Out 3 <*> Procedure Esophageal Biopsy, EGD w Radiofrequency Ablation 4 <+> Time Out 4 <*> Procedure Esophageal Biopsy, EGD w Radiofrequency Ablation 04/14/19 16:36:43 Clay Transporter: BICKNEA Modifier: BICKNEA 1 <*> Procedure Esophageal Biopsy 2 <*> Procedure Esophageal Biopsy 3 <*> Procedure Esophageal Biopsy 4 <*> Procedure Esophageal Biopsy 04/14/19 16:36:34 Clay Transporter: BICKNEA Modifier: BICKNEA 1 <*> Procedure Esophagogastroduodenoscopy, Esophageal Biopsy 2 <*> Procedure Esophagogastroduodenoscopy, Esophageal Biopsy 3 <*> Procedure Esophagogastroduodenoscopy, Esophageal Biopsy 4 <*> Procedure Esophagogastroduodenoscopy, Esophageal Biopsy 04/14/19 16:33:43 Clay Transporter: CHASKNEA Modifier: BICKNEA 1 <*> Procedure Esophagogastroduodenoscopy 2 <*> Procedure Esophagogastroduodenoscopy 3 <*> Procedure Esophagogastroduodenoscopy 4 <*> Procedure Esophagogastroduodenoscopy 04/14/19 16:31:13 Clay Transporter: BICKNEA Modifier: BICKNEA 1 <*> Time In 04/14/19 16:26:00 1 <*> Procedure Esophagogastroduodenoscopy 04/14/19 16:27:03 Clay Transporter: BICKNEA Modifier: BICKNEA <+> 1 Procedure 2 [...] Endo - Case Times Audit 04/14/19 16:38:53 Clay Transporter: BOOGIEEA Modifier: BICKNEA <+> 1 Out Room Time <+> 1 Stop Time <+> 1 Stop Time 04/14/19 16:33:07 Clay Transporter: CHASKNEA Modifier: BICKNEA <+> 1 Start Time [...] Modified By: Ivone Humphreys RN 04/14/19 16:27:00 [facility] Endo - Fire Risk Assessment Entry 1 [...] 04/14/19 16:27:07 [place] Endo - General Case Entry Level Paralegal 1 Case Information OR Endo 02 [facility] Case Level 1 Room Verified Yes Wound Class II - Clean-Contaminated Specialty SN Gastroenterology Anesthesia Type MAC ASA 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 Last Modified By: Ivone Humphreys RN 04/14/19 16:39:42 [facility] Endo - General Case Data Audit 04/14/19 16:39:42 Clay Transporter: BICKNEA Modifier: BICKNEA <+> 1 Postop Diagnosis 04/14/19 16:32:15 Clay Transporter: BOOGIEEA Modifier: BICKNEA 1 <+> Postop Same As Preop 1 <*> Preop Diagnosis K22.719 [facility] Endo - Intraoperative Assessment Entry 1 Valid [...] Endo - Patient Positioning Audit 04/14/19 16:36:45 Clay Transporter: BICKNEA Modifier: BICKNEA 1 <*> Procedure Esophageal Biopsy 04/14/19 16:36:34 Clay Transporter: BICKNEA Modifier: BICKNEA 1 <*> Procedure Esophagogastroduodenoscopy, Esophageal Biopsy 04/14/19 16:33:45 Clay Transporter: BICKNEA Modifier: BICKNEA 1 <*> Procedure Esophagogastroduodenoscopy [...] Endo - Surgical Procedures Audit 04/14/19 16:39:00 Clay Transporter: BICKNEA Modifier: BICKNEA <+> 1 Stop <+> 2 Stop 04/14/19 16:36:40 Clay Transporter: CHASKNEA Modifier: BICKNEA 1 <*> Procedure Esophagogastroduodenoscopy 04/14/19 16:33:38 Clay Transporter: BICKNEA Modifier: BICKNEA <+> 1 Start <+> 2 Procedure <+> 2 Primary Procedure <+> 2 Primary Surgeon <+> 2 Specialty <+> 2 Start <+> 2 Wound Class <+> 2 Anesthesia Type 04/14/19 16:28:17 Clay Transporter: BOOGIEEA Modifier: BICKNEA 1 <*> Procedure Esophagogastroduodenoscopy 1 <+> Specialty [facility] Endo - Time Out Entry 1 Procedure [...] Endo - Time Out Audit 04/14/19 16:36:45 Clay Transporter: ZAC Modifier: ZAC 1 <*> Procedure to be Performed Esophageal Biopsy 04/14/19 16:36:35 Clay Transporter: ZAC Modifier: CHASKNEA 1 <*> Procedure to be Performed Esophagogastroduodenoscopy, Esophageal Biopsy 04/14/19 16:33:46 Clay Transporter: ZAC Modifier: BICKNEA 1 <*> Procedure to be Performed Esophagogastroduodenoscopy Case Comments <None> Finalized By: Ivone Humphreys RN Document Signatures Signed By: Ivone Humphreys RN 04/14/19 16:39 documented in this encounter Plan of Treatment Not on file documented as of this encounter Visit Diagnoses Not on filedocumented in this encounter Care Teams Incident Response Coordinator Relationship Specialty Start Date End Date Marielos Amaral, HELP DESK TEAM LEADER [address] [address] PCP - General Nurse Practitioner 08/18/23 documented as of this encounter
--- OUTSIDE RECORDS SUMMARY | 2025-05-19 12:25 | XMS_ITS | Encounter Summary ---
Author Organization [employer] ([place], [place], [place], [place]) Address [address] [place] [address] Care Team Providers Care Tubing Machine Operator Name Role Phone Munir Marielos RESTREPO Primary Care Provider Encounter Details Date Type Department Care Team (Late st Contact Info) Description 04/22/2022 Transcribed Document [facility] [place] [address] [place] [address] ProviderHaroldo MD [address] [place] [address] Social History Tobacco Use Types [...] Do you speak a language other than Bahamian at [facility]? Yes 10/30/2024 Do [...] Historical Provider, - 04/22/2022 9:14 AM CDT [place] Suicide Severity Rating Scale (C-SSRS) Entered On: 04/22/2022 10:04 EDT Performed On: 04/22/2022 10:02 EDT by Shala Cole RN [place] Suicide Severity Rating Scale (C-SSRS) CSSRS Past Month Wish to be : No CSSRS Past Month Suicidal Thoughts : No CSSRS Lifetime Suicide Behavior : No Suicide Severity Rating Score : 0 Suicide Severity Rating : No Additional Care Required at this time Shala Cole RN - 04/22/2022 10:02 EDT Electronically signed by Brittany [place] Conversion Assistant District Attorney Cerner at 01/24/2023 10:42 AM CDT documented in this encounter Plan of Treatment Not on file documented as of this encounter Visit Diagnoses Not on filedocumented in this encounter Care Teams Tubing Machine Operator Relationship Specialty Start Date End Date Marielos Amaral APRN [address] [address] PCP - General Nurse Practitioner 08/18/23 documented as of this encounter
--- OUTSIDE RECORDS SUMMARY | 2025-05-19 12:25 | XMS_ITS | Encounter Summary ---
Author Organization [employer] ([place], [place], [place], [place]) Address [address] [place] [address] Care Team Providers Care Fitter Type Bar And Segment Name Role Phone Munir Marielos RESTREPO Primary Care Provider Encounter Details Date Type Department Care Team (Late st Contact Info) Description 04/22/2022 Transcribed Document [facility] [place] [address] [place] [address] ProviderHaroldo MD [address] [place] [address] Social History Tobacco Use Types [...] Do you speak a language other than [place] at [facility]? Yes 10/30/2024 Do you want help with [...] On: 04/22/2022 22:23 EDT by Almas Gómez, Rail Gang Supervisor Cert Lead Meds to Bed Enrollment Patient Enrollment Decision: : Yes/enroll in meds to bed program Almas Gómez Rail Gang Supervisor Cert Lead - 04/23/2022 10:39 EDT documented in this encounter Plan of Treatment Not on file documented as of this encounter Visit Diagnoses Not on filedocumented in this encounter Care Teams Fitter Type Bar And Segment Relationship Specialty Start Date End Date Marielos Amaral, FOOD TECHNOLOGY TEACHER [address] [phone] PCP - General Nurse Practitioner 08/18/23 documented as of this encounter
--- OUTSIDE RECORDS SUMMARY | 2025-05-19 12:25 | XMS_ITS | Encounter Summary ---
Author Organization [employer] ([place], [place], [place], [place]) Address [address] [place] [address] Care Team Providers Care Certified Nurses' Aide Name Role Phone Marielos Amaral KAYE Primary Care Provider Encounter Details Date Type Department Care Team (Late st Contact Info) Description 10/14/2019 Transcribed Document [facility] [place] Family Medicine [address] [place] [address] ProviderHaroldo MD [address] [place] [address] Social History Tobacco Use Types Packs/Day Years Used Date Smoking Tobacco: Never Assessed Sex and Gender Information Value Date Recorded Sex Assigned at Not on file Legal Sex Male 3:45 PM CDT Gender Identity Not on file Sexual Orientation Not on file documented as of this encounter Miscellaneous Notes * Cerner Conversion Note - Haroldo ProviderMD - 10/14/2019 1:50 PM CORPORATE BUYER ED Triage Entered On: 10/14/2019 14:07 EST [...] : 2 - Emergent Tracking Group : [facility] ED ASHLEY ZUÑIGA - 10/14/2019 [...] 10/14/2019 14:07:48 EST) Problems(Active) Angina (SNOMED CT :897613786 ) Name of Problem: Angina ; Recorder: RAVEN REILLY RN; Confirmation: Confirmed ; Classification: Patient Stated ; Code: 137138171 ; Contributor System: [employer] ; Last Updated: 07/20/2014 9:33 EDT ; Life Cycle Date: 07/20/2014 ; Life Cycle Status: Active ; Vocabulary: SNOMED CT Coronary artery disease (SNOMED CT :3195037553 ) Name of Problem: Coronary artery disease ; Recorder: RAVEN REILLY RN; Confirmation: Confirmed ; Classification: Patient Stated ; Code: [id number] ; Contributor System: [employer] ; Last Updated: 07/20/2014 9:33 EDT ; Life Cycle Date: 07/20/2014 ; Life Cycle Status: Active ; Vocabulary: SNOMED CT Diabetes mellitus type II (SNOMED CT :86982398 ) Name of Problem: Diabetes mellitus type II ; Recorder: RAVEN REILLY RN; Confirmation: Confirmed ; Classification: Patient Stated ; Code: 70034529 ; Contributor System: [employer] ; Last Updated: 07/20/2014 9:35 EDT ; Life Cycle Date: 07/20/2014 ; Life Cycle Status: Active ; Vocabulary: SNOMED CT Enlarged prostate (SNOMED CT :903870586 ) Name of Problem: Enlarged prostate ; Recorder: RAVEN REILLY RN; Confirmation: Confirmed ; Classification: Patient Stated ; Code: 169247157 ; Contributor System: [employer] ; Last Updated: 07/20/2014 9:34 EDT ; Life Cycle Date: 07/20/2014 ; Life Cycle Status: Active ; Vocabulary: SNOMED CT GERD - Gastro-esophageal reflux disease (SNOMED CT :2990929414 ) Name of Problem: GERD - Gastro-esophageal reflux disease ; Recorder: RAVEN REILLY RN; Confirmation: Confirmed ; Classification: Patient Stated ; Code: 6565011059 ; Contributor System: [employer] ; Last Updated: 07/20/2014 9:34 EDT ; Life Cycle Date: 07/20/2014 ; Life Cycle Status: Active ; Vocabulary: SNOMED CT Heart failure (SNOMED CT :660700139 ) Name of Problem: Heart failure ; Recorder: RAVEN REILLY RN; Confirmation: Confirmed ; Classification: Patient Stated ; Code: 776166046 ; Contributor System: [employer] ; Last Updated: 07/20/2014 9:33 EDT ; Life Cycle Date: 07/20/2014 ; Life Cycle Status: Active ; Vocabulary: SNOMED CT Heart murmur (SNOMED CT :662964062 ) Name of Problem: Heart murmur ; Recorder: RAVEN REILLY RN; Confirmation: Confirmed ; Classification: Patient Stated ; Code: 609249656 ; Contributor System: [employer] ; Last Updated: 07/20/2014 9:33 EDT ; Life Cycle Date: 07/20/2014 ; Life Cycle Status: Active ; Vocabulary: SNOMED CT History of obstructive sleep apnea (IMO :11606742 ) Name of Problem: History of obstructive sleep apnea ; Recorder: SYSTEM, SYSTEM; Confirmation: Confirmed ; Classification: Medical ; Code: 19535867 ; Last Updated: 01/20/2019 12:39 EDT ; Life Cycle Date: 01/20/2019 ; Life Cycle Status: Active ; Vocabulary: IMO Hyperlipidemia (SNOMED CT :67455940 ) Name of Problem: Hyperlipidemia ; Recorder: RAVEN REILLY RN; Confirmation: Confirmed ; Classification: Patient Stated ; Code: 33482500 ; Contributor System: [employer] ; Last Updated: 09/03/2017 13:38 EST ; Life Cycle Date: 07/20/2014 ; Life Cycle Status: Active ; Vocabulary: SNOMED CT Hypertension (SNOMED CT :78470776 ) Name of Problem: Hypertension ; Recorder: RAVEN REILLY RN; Confirmation: Confirmed ; Classification: Patient Stated ; Code: 40939012 ; Contributor System: [employer] ; Last Updated: 07/20/2014 9:33 EDT ; Life Cycle Date: 07/20/2014 ; Life Cycle Status: Active ; Vocabulary: SNOMED CT Impaired vision (SNOMED CT :05568907 ) Name of Problem: Impaired vision ; Recorder: RAVEN REILLY RN; Confirmation: Confirmed ; Classification: Patient Stated ; Code: 73068314 ; Contributor System: Power[employer] ; Last Updated: 07/20/2014 9:32 EDT ; Life Cycle Date: 07/20/2014 ; Life Cycle Status: Active ; Vocabulary: SNOMED CT Migraine (SNOMED CT :45061303 ) Name of Problem: Migraine ; Recorder: RAVEN REILLY RN; Confirmation: Confirmed ; Classification: Patient Stated ; Code: 98249672 ; Contributor System: [employer] ; Last Updated: 07/20/2014 9:35 EDT ; Life Cycle Date: 07/20/2014 ; Life Cycle Status: Active ; Vocabulary: SNOMED CT Stented coronary artery (SNOMED CT :5344478433 ) Name of Problem: Stented coronary artery ; Recorder: RAVEN REILLY RN; Confirmation: Confirmed ; Classification: Patient Stated ; Code: 7412160009 ; Contributor System: [employer] ; Last Updated: 07/20/2014 9:33 EDT ; Life Cycle Date: 07/20/2014 ; Life Cycle Status: Active ; Vocabulary: SNOMED CT Diagnoses(Active) Chest pain Date: 10/14/2019 ; Diagnosis Type: Reason For Visit ; Confirmation: Complaint of ; Clinical Dx: Chest pain ; Classification: Medical ; Clinical Service: Emergency medicine ; Code: PNED ; Probability: 0 ; Diagnosis Code: [id number] ED Height and Weight Height Source : Stated Height Entry Format : Glenn Height, Feet : 5 ft(Converted to: 152 cm, 60 Inch) Height, Inches : 9 Inch(Converted to: 0 ft 9 Inch, 22.86 cm) Clinical Height : 175.26 cm Weight Source, ED : Critical estimated dosing weight Weight Entry Format : Glenn Weight, Pounds : 190 lb Clinical Dosing Weight : 86.36 kg Body Surface Area (BSA) : 2.02 m2 Body Mass Index : 28.1 kg/m2 (HI) [place] Body Weight (IBW) : 69.73 kg ASHLEY ZUÑIGA - 10/14/2019 14:04 EST Electronically signed by Renetta Soto Conversion Pediatric Licensed Practical Nurse Cerner at 01/24/2023 10:35 AM CDT documented in this encounter Plan of Treatment Not on file documented as of this encounter Visit Diagnoses Not on filedocumented in this encounter Care Teams Certified Nurses' Aide Relationship Specialty Start Date End Date Marielos Amaral APRN [address] [address] PCP - General Nurse Practitioner 08/18/23 documented as of this encounter
--- OUTSIDE RECORDS SUMMARY | 2025-05-19 12:25 | XMS_ITS | Encounter Summary ---
Author Organization [employer] ([place], [place], [place], [place]) Address [address] [place] [address] Care Team Providers Care Senior It Engineer Name Role Phone Munir Marielos RESTREPO Primary Care Provider Encounter Details Date Type Department Care Team (Late st Contact Info) Description 04/22/2022 Transcribed Document [facility] [place] Family Medicine [address] [place] [address] ProviderHaroldo MD [address] [place], [place] [...] you? Never 10/30/2024 How often does anyone, ezhra harvey family and friends, threaten you with [...] speak a language other than Guamanian at [facility]? Yes 10/30/2024 Do [...] AGGIE LOREDO OTR/Melvin Strong 04/23/2022 13:39 EDT Half-Way Goals, OT Grooming LTG Grid Goal #1 [...] AGGIE LOREDO OTR/L - 04/23/2022 13:39 EDT [place] OT Charges OT Ther Activities Ea 15 Min : 1 OT Eval Low Complexity : 1 AGGIE LOREDO OTR/L - 04/23/2022 13:39 EDT Electronically signed by Brittany [facility] Conversion Warehouse Examiner Cerner at 01/24/2023 10:36 AM CDT documented in this encounter Plan of Treatment Not on file documented as of this encounter Visit Diagnoses Not on filedocumented in this encounter Care Teams Senior It Engineer Relationship Specialty Start Date End Date Marielos Amaral, VP BUSINESS DEVELOPMENT [address] [place] [address] PCP - General Nurse Practitioner 08/18/23 documented as of this encounter
--- OUTSIDE RECORDS SUMMARY | 2025-05-19 12:25 | XMS_ITS | Encounter Summary ---
Author Organization [employer] ([place], [place], [place], [place]) Address [address] [place] [address] Care Team Providers Care Director Of Graduate Admissions Name Role Phone Marielos Amaral KAYE Primary Care Provider Encounter Details Date Type Department Care Team (Late st Contact Info) Description 02/09/2019 Transcribed Document [facility] [place] [address] [place] [address] ProviderHaroldo MD [address] [place] [address] Social History Tobacco Use Types Packs/Day Years [...] Plan: [employer] GOLD PLUS HMO Policy Number: [id number] Authorization Number: PENDING IP Insurance Primary Name : [employer] Choice Authorization Status-Primary : Notification only Auth/Referral Contact Name-Primary : Wenceslao Curran Authorization Number-Primary : [id number] Authorized Service Begin Date-Primary : 02/05/2019 EDT Observation Authorization Nbr-Primary : [id number] Historical Authorization Comments-Primary : Comment 1: inpt auth is pending per availity trans id# [id number] (DIONE REY, Border Patrol Agent 02/08/2019 09:43) Comment 2: setup case for IP on availity. faxed clinicals via cerner. (GEGE JUÁREZ RN 02/07/2019 11:56) Comment 3: setup on availity obs approved. (GEGE JUÁREZ RN 02/06/2019 08:52) Mary Haynes Rn-Utilization Review - 02/09/2019 9:06 EDT Electronically signed by Brittany [facility] Conversion Community Program Assistant Cerner at 01/24/2023 10:44 AM CDT documented in this encounter Plan of Treatment Not on file documented as of this encounter Visit Diagnoses Not on filedocumented in this encounter Care Teams Director Of Graduate Admissions Relationship Specialty Start Date End Date Marielos Amaral, CARBON ACCOUNTANT [address] [phone] PCP - General Nurse Practitioner 08/18/23 documented as of this encounter
--- OUTSIDE RECORDS SUMMARY | 2025-05-19 12:25 | XMS_ITS | Encounter Summary ---
Author Organization [employer] ([place], [place], [place], [place]) Address [address] [place] [address] Care Team Providers Care Boat Driver Name Role Phone Munir Marielos RESTREPO Primary Care Provider Encounter Details Date Type Department Care Team (Late st Contact Info) Description 04/22/2022 Transcribed Document [facility] [place] Family Medicine [address] [place] [address] ProviderHaroldo MD [address] [place] [address] Social History Tobacco Use Types [...] speak a language other than Chilean at [facility]? Yes 10/30/2024 Do you want help [...] on filedocumented in this encounter Care Teams Boat Driver Relationship Specialty Start Date End Date Marielos Amaral, KAYE [address] [place] [address] PCP - General Nurse Practitioner 08/18/23 documented as of this encounter
--- OUTSIDE RECORDS SUMMARY | 2025-05-19 12:25 | XMS_ITS | Encounter Summary ---
Author Organization [employer] ([place], [place], [place], [place]) Address [address] [place] [address] Care Team Providers Care Infrastructure Manager Name Role Phone Munir Marielos RESTREPO Primary Care Provider Encounter Details Date Type Department Care Team (Late st Contact Info) Description 04/22/2022 Transcribed Document [facility] [place] [address] [place] [address] ProviderHaroldo MD [address] [place] [address] Social History Tobacco Use Types [...] speak a language other than Croatian at [facility]? Yes 10/30/2024 Do [...] 17:33 EDT by Casi Evans, Emergency Room Phlebotomy Coordinator ED Event Note ED Event Date/Time : 04/22/2022 17:33 EDT ED Description of Event : food tray ordered Casi Evans, Emergency Room Phlebotomy Coordinator - 04/22/2022 17:33 EDT Electronically signed by Brittany [facility] Conversion Rehab Aide Cerner at 01/24/2023 10:42 AM CDT documented in this encounter Plan of Treatment Not on file documented as of this encounter Visit Diagnoses Not on filedocumented in this encounter Care Teams Infrastructure Manager Relationship Specialty Start Date End Date Marielos Amaral, KAYE [address] [place] [address] PCP - General Nurse Practitioner 08/18/23 documented as of this encounter
--- OUTSIDE RECORDS SUMMARY | 2025-05-19 12:25 | XMS_ITS | Encounter Summary ---
Author Organization [employer] ([place], [place], [place], [place]) Address [address] [place] [address] Care Team Providers Care Wine Blender Name Role Phone Marielos Amaral KAYE Primary Care Provider Encounter Details Date Type Department Care Team (Late st Contact Info) Description 02/09/2019 Transcribed Document [facility] [place] Family Medicine [address] [place] [address] ProviderHaroldo MD [address] [place] [address] Social History Tobacco Use Types Packs/Day Years [...] on filedocumented in this encounter Care Teams Wine Blender Relationship Specialty Start Date End Date Marielos Amaral, KAYE [address] [place] [address] PCP - General Nurse Practitioner 08/18/23 documented as of this encounter
--- OUTSIDE RECORDS SUMMARY | 2025-05-19 12:25 | XMS_ITS | Encounter Summary ---
Author Organization [employer] ([place], [place], [place], [place]) Address [address] [place] [address] Care Team Providers Care Robotics Specialist Name Role Phone Marielos Amaral APRN Primary Care Provider Encounter Details Date Type Department Care Team (Late st Contact Info) Description 04/14/2019 Transcribed Document [facility] [place] Medicine [address] [place] [address] ProviderHaroldo MD [address] [place] [address] Social History Tobacco Use Types Packs/Day Years [...] ELINAZACKARY /Sex: 1950 Male Med Rec #: [id number] Physician: PRINCESS DOCKERY MD-GAE Financial #: [id number] Pt. Type: O Room/Bed: Admit/Disch: 04/14/19 14:02:00 [...] on filedocumented in this encounter Care Teams Robotics Specialist Relationship Specialty Start Date End Date Marielos Amaral, SAW OPERATOR [address] [phone] PCP - General Nurse Practitioner 08/18/23 documented as of this encounter
--- OUTSIDE RECORDS SUMMARY | 2025-05-19 12:25 | XMS_ITS | Encounter Summary ---
Author Organization [employer] ([place], [place], [place], [place]) Address [address] [place] [address] Care Team Providers Care Community Artist Name Role Phone Munir Marielos RESTREPO Primary Care Provider Encounter Details Date Type Department Care Team (Late st Contact Info) Description 04/22/2022 Transcribed Document [facility] [place] [address] [place] [address] ProviderHaroldo MD [address] [place] [address] Social History Tobacco Use Types [...] Do you speak a language other than Qatari at [facility]? Yes 10/30/2024 Do you want [...] 11:31 (ANISA CRAVEN) No further action required Electronically signed by Renetta Soto Conversion Supervisor Electronics Assembly Cerner at 01/24/2023 10:42 AM CDT documented in this encounter Plan of Treatment Not on file documented as of this encounter Visit Diagnoses Not on filedocumented in this encounter Care Teams Community Artist Relationship Specialty Start Date End Date Marielos Amaral, KAYE [address] [place] [address] PCP - General Nurse Practitioner 08/18/23 documented as of this encounter
--- OUTSIDE RECORDS SUMMARY | 2025-05-19 12:25 | XMS_ITS | Encounter Summary ---
Author Organization [employer] ([place], [place], [place], [place]) Address [address] [place] [address] Care Team Providers Care Oyster Unloader Name Role Phone AmaralMarielos roque KAYE Primary Care Provider Encounter Details Date Type Department Care Team (Late st Contact Info) Description 10/14/2019 Transcribed Document [facility] [place] Family [place] [address] [place] [address] ProviderHaroldo MD [address] [place] [address] Social History Tobacco Use Types Packs/Day Years Used Date Smoking Tobacco: Never Assessed Sex and Gender Information Value Date Recorded Sex Assigned at Not on file Legal Sex Male 3:45 PM CDT Gender Identity Not on file Sexual Orientation Not on file documented as of this encounter Miscellaneous Notes * [employer]ner Conversion Note - Haroldo ProviderMD - 10/14/2019 5:17 PM NETWORK ADMIN Admission History, Adult Entered On: 10/14/2019 18:33 [...] Spouse Legal Guardian : No Support Person/Patient Radiotelephone Technical Operator : Yes Support Person/Pt Rep Name : Enriqueta - Contact Password : peanut Support Person/Pt Rep Contact Information : [phone] Want Family/Rep/Phys Notified of Admit : No [...] From : Patient, Spouse Primary Language : Sammarinese Preferred Communication Mode : Verbal Communication Barrier [...] Scale Risk Level : 25-45 Medium Risk [place] Fall Interventions : Adequate lighting, Assistive devices [...] Source : Stated Height Entry Format : Ray Height, Feet : 5 ft(Converted to: 152 cm, 60 Inch) Height, Inches : 9 Inch(Converted to: 0 ft 9 Inch, 22.86 cm) Clinical Height : 175.26 cm Weight Source : Bed scale Weight Entry Format : Ray Clinical Dosing Weight : 86.36 kg Weight, Pounds : 190 lb Body Surface Area (BSA) : 2.02 m2 Body Mass Index : 28.1 kg/m2 (HI) [place] Body Weight : 70 kg LAZARA Hoang [...] at risk LAZARA Hoang 10/14/2019 18:28 EST [place] Suicide Severity Rating Scale (C-SSRS) CSSRS Past [...] filedocumented in this encounter Care Teams Oyster Unloader Relationship Specialty Start Date End Date Marielos Amaral, KAYE [address] [phone] PCP - General Nurse Practitioner 08/18/23 documented as of this encounter
--- OUTSIDE RECORDS SUMMARY | 2025-05-19 12:25 | XMS_ITS | Encounter Summary ---
Author Organization [employer] ([place], [place], [place], [place]) Address [address] [place] [address] Care Team Providers Care Photographic Editor Name Role Phone Marielos Amaral APRN Primary Care Provider Encounter Details Date Type Department Care Team (Late st Contact Info) Description 10/14/2019 Transcribed Document [facility] [place] [address] [place] [address] ProviderHaroldo MD [address] [place] [address] Social History Tobacco Use Types Packs/Day Years Used Date Smoking Tobacco: Never Assessed Sex and Gender Information Value Date Recorded Sex Assigned at Not on file Legal Sex Male 3:45 PM CDT Gender Identity Not on file Sexual Orientation Not on file documented as of this encounter Miscellaneous Notes * [employer]ner Conversion Note - Historical ProviderMD - 10/14/2019 5:11 PM SUPERVISOR TUMBLING AND ROLLING CR Chest 1 Vw Portable Ordered: 10/14/2019 Modified Reason for Exam: Chest Pain 10/14/2019 15:41 10/14/2019 17:11 (MARILYN TOM APRN) Reviewed by Provider, No further action required x1 documented in this encounter Plan of Treatment Not on file documented as of this encounter Visit Diagnoses Not on filedocumented in this encounter Care Teams Photographic Editor Relationship Specialty Start Date End Date Marielos Amaral APRN [address] [address] PCP - General Nurse Practitioner 08/18/23 documented as of this encounter
--- OUTSIDE RECORDS SUMMARY | 2025-05-19 12:25 | XMS_ITS | Encounter Summary ---
Author Organization [employer] ([place], [place], [place], [place]) Address [address] [place] [address] Care Team Providers Care Ply Bander Name Role Phone Munir Marielos RESTREPO Primary Care Provider Encounter Details Date Type Department Care Team (Late st Contact Info) Description 04/22/2022 Transcribed Document [facility] [place] Family Medicine [address] [place] [address] ProviderHaroldo MD [address] [place] [address] Social History Tobacco Use [...] Never 10/30/2024 How often does anyone, zehra harevy family and friends, insult or talk down [...] Do you speak a language other than Moroccan at [facility]? Yes 10/30/2024 Do you want [...] Historical Provider, - 04/22/2022 1:51 PM CDT LOG GRADER Attempt to Treat Entered On: 04/22/2022 13:51 EDT Performed On: 04/22/2022 13:51 EDT by TOVA LOPEZ SLP Attempt to Treat Unable to Treat Due To : Patient Unavailable Inability to Treat Comment : Pt leaving for CT. LOG GRADER will check back as schedule allows. Notification : TOVA MACIAS, RAMONA - 04/22/2022 13:51 EDT Electronically signed by Brittany [facility] Conversion Client Strategist Cerner at 01/24/2023 10:39 AM CDT documented in this encounter Plan of Treatment Not on file documented as of this encounter Visit Diagnoses Not on filedocumented in this encounter Care Teams Ply Bander Relationship Specialty Start Date End Date Marielos Amaral, FAMILY LIFE EDUCATOR [address] [place] [address] PCP - General Nurse Practitioner 08/18/23 documented as of this encounter
--- OUTSIDE RECORDS SUMMARY | 2025-05-19 12:25 | XMS_ITS | Encounter Summary ---
Author Organization [employer] ([place], [place], [place], [place]) Address [address] [place] [address] Care Team Providers Care Eligibility Specialist Name Role Phone Marielos Amaral KAYE Primary Care Provider Encounter Details Date Type Department Care Team (Late st Contact Info) Description 02/12/2019 Transcribed Document [facility] [place] Family Medicine [address] [place] [address] ProviderHaroldo MD [address] [place] [address] Social History Tobacco Use Types Packs/Day Years [...] on filedocumented in this encounter Care Teams Eligibility Specialist Relationship Specialty Start Date End Date Marielos Amaral, JUVENILE JUSTICE SPECIALIST [address] [place] [address] PCP - General Nurse Practitioner 08/18/23 documented as of this encounter
--- OUTSIDE RECORDS SUMMARY | 2025-05-19 12:25 | XMS_ITS | Encounter Summary ---
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 Initially biopsies did show [...] filedocumented in this encounter Care Teams Security Coordinator Relationship Specialty Start Date End Date Marielos Amaral APRN [address] [address] PCP - General Nurse Practitioner 08/18/23 documented as of this encounter
--- OUTSIDE RECORDS SUMMARY | 2025-05-19 12:25 | XMS_ITS | Encounter Summary ---
Author Organization [employer] ([place], [place], [place], [place]) Address [address] [place] [address] Care Team Providers Care Pipe Fitter Supervisor Maintenance Name Role Phone Munir Marielos RESTREPO Primary Care Provider Encounter Details Date Type Department Care Team (Late st Contact Info) Description 04/22/2022 Transcribed Document [facility] [place] [address] [place] [address] ProviderHaroldo MD [address] [place] [address] Social History Tobacco Use Types [...] Do you speak a language other than Indian at [facility]? Yes 10/30/2024 Do you [...] edema. No cyanosis. Peripheral pulses are palpable. CHIEF SUSTAINABILITY OFFICER: No focal deficit noted grossly. Cranial nerves [...] We will follow along with other physicians. /[id number] Sarika Umana MD MA/JEAN PAUL / MA / MODL /[id number] Electronically signed by Brittany, [facility] Conversion Workday Director Cerner at 01/24/2023 10:41 AM CDT documented in this encounter Plan of Treatment Not on file documented as of this encounter Visit Diagnoses Not on filedocumented in this encounter Care Teams Pipe Fitter Supervisor Maintenance Relationship Specialty Start Date End Date Marielos Amaral, PORTFOLIO MGR [address] [address] PCP - General Nurse Practitioner 08/18/23 documented as of this encounter
--- OUTSIDE RECORDS SUMMARY | 2025-05-19 12:25 | XMS_ITS | Encounter Summary ---
Author Organization [employer] ([place], [place], [place], [place]) Address [address] [place] [address] Care Team Providers Care Pmo Project Manager Name Role Phone Marielos Amaral APRN Primary Care Provider Encounter Details Date Type Department Care Team (Late st Contact Info) Description 04/14/2019 Transcribed Document [facility] [place] Family Medicine [address] [place] [address] ProviderHaroldo MD [address] [place] [address] Social History Tobacco Use Types Packs/Day Years [...] ELINAZACKARY /Sex: 1950 Male Med Rec #: [id number] Physician: PRINCESS DOCKERY MD-GAE Financial #: [id number] Pt. Type: O Room/Bed: Admit/Disch: 04/14/19 14:02:00 - Institution: [facility] PACU Case Times Entry 1 In PACU I 04/14/19 16:45:00 Ready for PACU 04/14/19 17:09:00 Discharge Discharge from PACU 04/14/19 17:10:00 I [facility] PACU Case Times Audit 04/14/19 17:10:08 Brazing Machine Operator Helper: ZAC Modifier: BICKNEA <+> 1 Ready for PACU Discharge <+> 1 Discharge from PACU I Finalized By: Ivone Humphreys, RN Document Signatures Signed By: Ivone Humphreys, LUIS 04/14/19 17:19 documented in this encounter Plan of Treatment Not on file documented as of this encounter Visit Diagnoses Not on filedocumented in this encounter Care Teams Pmo Project Manager Relationship Specialty Start Date End Date Marielos Amaral, AERIAL SPRAYER [address] [phone] PCP - General Nurse Practitioner 08/18/23 documented as of this encounter
--- OUTSIDE RECORDS SUMMARY | 2025-05-19 12:25 | XMS_ITS | Encounter Summary ---
Author Organization [employer] ([place], [place], [place], [place]) Address [address] [place] [address] Care Team Providers Care Watch Dial Maker Name Role Phone Munir Marielos RESTREPO Primary Care Provider Encounter Details Date Type Department Care Team (Late st Contact Info) Description 04/22/2022 Transcribed Document [facility] [place] Family Medicine [address] [place] [address] ProviderHaroldo MD [address] [place] [address] Social History Tobacco Use Types [...] speak a language other than [place] at [facility]? Yes 10/30/2024 Do you want help [...] TOVA LOPEZ, RAMONA General Information Visit Type, DISPENSING OPTICIAN : Initial evaluation Patient Orders : Speech Language Pathology Evaluation and Treatment -111 Start: 04/22/22 14:23:00 EDT, Routine, For Speech Language Cognitive Eval and Treat - ASHLEY GALARZA PA Speech Language Pathology Swallow Evaluation and Treatment - Start: 04/22/22 13:17:00 EDT, Routine, For Swallow Eval and Treat -111 ASHLEY GALARZA PA Admission Date : Admission Date/Time: 04/22/22 12:30:00 Medical Chart Reviewed, DISPENSING OPTICIAN : Yes Personal Devices : Personal Devices [...] collapse 04/22/2022 12:00 Syncope/Near syncope Therapy Diagnosis, DISPENSING OPTICIAN : Pt presents without overt oropharyngeal patterns. [...] During Current Admission : NPO Intubation Comment, DISPENSING OPTICIAN : n/a Vital Signs RTF : Vitals [...] 14:25 EDT General Status Patient Received Status, DISPENSING OPTICIAN : Supine in bed Treatment Start Time, DISPENSING OPTICIAN : 04/22/2022 14:12 EDT Patient Left Status, DISPENSING OPTICIAN : Long sitting in bed RN/PCT Informed Comment, DISPENSING OPTICIAN : [id number] (5 minutes) Treatment End Time, DISPENSING OPTICIAN : 04/22/2022 14:25 EDT Treatment Time, DISPENSING OPTICIAN : 13 Minute(s) TOVA LOPEZ SLP - [...] Oral Mechanism for Daily Living : Intact DISPENSING OPTICIAN Cough : Strong Facial Appearance: : Symmetrical [...] Afib, DM, GERD, SEFERINO, HLD, and HTN. DISPENSING OPTICIAN consulted for bedside dysphagia evaluation. Today, pt [...] this time. Diet orders have been placed. DISPENSING OPTICIAN will follow up w/ a definitive neuro [...] - 04/22/2022 14:25 EDT Therapy Indication Assessment DISPENSING OPTICIAN Indicated : No DISPENSING OPTICIAN Not Indicated : At prior level of function DISPENSING OPTICIAN Interdisciplinary Consultation Needs : No DISPENSING OPTICIAN Rehabilitation Potential : At prior level of function TOVA LOPEZ SLP - 04/22/2022 14:25 EDT Education Barriers To Learning : None evident Individuals Taught : Patient, Spouse Readiness to Learn : Cooperative Readiness to Learn : Explanation Education Comment : n/a TOVA LOPEZ SLP - 04/22/2022 14:25 EDT DISPENSING OPTICIAN Education Assessment Grid 1 Diet Recommendation : Verbalizes understanding Evaluation Results : Verbalizes understanding TOVA LOPEZ SLP - 04/22/2022 14:[address] [facility] [place] DISPENSING OPTICIAN Charges Evaluation Swallowing Function : 1 TOVA LOPEZ SLP - 04/22/2022 14:25 EDT Anticipated Discharge Needs, DISPENSING OPTICIAN Anticipated Discharge to : Home, independently Recommend Continued Therapy at Discharge : No TOVA LOPEZ SLP - 04/22/2022 14:25 EDT Electronically signed by Brittany [facility] Conversion Sonography Technologist Cerner at 01/24/2023 10:34 AM CDT documented in this encounter Plan of Treatment Not on file documented as of this encounter Visit Diagnoses Not on filedocumented in this encounter Care Teams Watch Dial Maker Relationship Specialty Start Date End Date Marielos Amaral, KAYE [address] [phone] PCP - General Nurse Practitioner 08/18/23 documented as of this encounter
--- OUTSIDE RECORDS SUMMARY | 2025-05-19 12:25 | XMS_ITS | Encounter Summary ---
Author Organization [employer] ([place], [place], [place], [place]) Address [address] [place] [address] Care Team Providers Care Forestry Support Specialist Name Role Phone Marielos Amaral KAYE Primary Care Provider [phone] Encounter Details Date Type Department Care Team (Late st Contact Info) Description 02/09/2019 Transcribed Document [facility] [place] [address] [place] [address] ProviderHaroldo MD [address] [place] [address] Social History Tobacco Use Types Packs/Day Years [...] 02/09/2019 4:00 EDT by Jessica Diez Care [facility] Unit Coord Height and Weight, Routine Routine Weight Source : Bed scale Routine Weight Entry Format : [place] Routine Weight, Pounds : 173 lb Routine Weight, Ounces : 8 oz Routine Weight Calculation : 78.86 kg Height Source : Stated Height Entry Format : [place] Height, Feet : 5 ft Height, Inches : 9 Inch Clinical Height : 175.26 cm Body Surface Area (BSA), Routine : 1.95 m2 Body Mass Index (BMI), Routine : 25.67 kg/m2 Jessica Diez [facility] - 02/09/2019 7:21 EDT Electronically signed by Brittany [facility] Conversion Artificial Glass Eye Maker Cerner at 01/24/2023 10:44 AM CDT documented in this encounter Plan of Treatment Not on file documented as of this encounter Visit Diagnoses Not on filedocumented in this encounter Care Teams Forestry Support Specialist Relationship Specialty Start Date End Date Marielos Amaral, KAYE [address] [address] PCP - General Nurse Practitioner 08/18/23 documented as of this encounter
--- OUTSIDE RECORDS SUMMARY | 2025-05-19 12:25 | XMS_ITS | Encounter Summary ---
Author Organization [employer] ([place], [place], [place], [place]) Address [address] [place] [address] Care Team Providers Care Mutual Fund Analyst Name Role Phone Marielos Amaral KAYE Primary Care Provider Encounter Details Date Type Department Care Team (Late st Contact Info) Description 10/14/2019 Transcribed Document [facility] [place] [address] [place] [address] ProviderHaroldo MD [address] [place] [address] Social History Tobacco Use Types Packs/Day Years Used Date Smoking Tobacco: Never Assessed Sex and Gender Information Value Date Recorded Sex Assigned at Not on file Legal Sex Male 3:45 PM CDT Gender Identity Not on file Sexual Orientation Not on file documented as of this encounter Miscellaneous Notes * [employer]ner Conversion Note - Haroldo ProviderMD - 10/14/2019 8:22 PM GRANULAR OPERATOR Patient: ZACKARY ANTOINE Age: 68 Years Sex: Male : 1950 Chief Complaint c/o L sided, non-radiating dull chest pressure constant in nature onset approx 2 weeks ago, reproduceable with movement of arm or laying on side. Primary Care Provider [facility]AT[facility]N [facility]ON [facility] Vital Signs T: 36.8 ??C TMIN: [...] tablet 5 mg = 1 Tab, Oral, [id number] Eliquis 5 mg oral tablet 5 mg [...] Lymph # 1.49 K/uL 10/14/2019 14:46 EST [place] % 8.9 % 10/14/2019 14:46 EST [place] # 0.69 K/uL 10/14/2019 14:46 EST Eos [...] on Record Electronically signed by Brittany, [facility] Conversion Cnc Lathe Programmer Cerner at 01/24/2023 10:28 AM CDT documented in this encounter Plan of Treatment Not on file documented as of this encounter Visit Diagnoses Not on filedocumented in this encounter Care Teams Mutual Fund Analyst Relationship Specialty Start Date End Date Marielos Amaral, MEDICAID ELIGIBILITY SPECIALIST [address] [phone] PCP - General Nurse Practitioner 08/18/23 documented as of this encounter
--- OUTSIDE RECORDS SUMMARY | 2025-05-19 12:25 | XMS_ITS | Encounter Summary ---
Author Organization [employer] ([place], [place], [place], [place]) Address [address] [place] [address] Care Team Providers Care Timing Machine Operator Name Role Phone Marielos Amaral KAYE Primary Care Provider [phone] Encounter Details Date Type Department Care Team (Late st Contact Info) Description 10/14/2019 Transcribed Document [facility] [place] [address] [place] [address] ProviderHaroldo MD [address] [place] [address] Social History Tobacco Use Types Packs/Day Years Used Date Smoking Tobacco: Never Assessed Sex and Gender Information Value Date Recorded Sex Assigned at Not on file Legal Sex Male 3:45 PM CDT Gender Identity Not on file Sexual Orientation Not on file documented as of this encounter Miscellaneous Notes * Cerner Conversion Note - Haroldo ProviderMD - 10/14/2019 1:50 PM DEFENCE FORCE MEMBER OTHER RANKS Brown Suicide Severity Rating Scale (C-SSRS) Entered On: 10/14/2019 15:40 EST Performed On: 10/14/2019 14:00 EST by Ivone Damon RN Brown Suicide Severity Rating Scale (C-SSRS) CSSRS Past Month Wish to be : No CSSRS Past Month Suicidal Thoughts : No CSSRS Lifetime Suicide Behavior : No Suicide Severity Rating Score : 0 Suicide Severity Rating : No Additional Care Required at this time Ivone Damon RN - 10/14/2019 15:38 EST Electronically signed by Brittany [facility] Conversion Deburring Technician Cerner at 01/24/2023 10:18 AM CDT documented in this encounter Plan of Treatment Not on file documented as of this encounter Visit Diagnoses Not on filedocumented in this encounter Care Teams Timing Machine Operator Relationship Specialty Start Date End Date Marielos Amaral, AEROSPACE PHYSIOLOGICAL TECHNICIAN [address] [address] PCP - General Nurse Practitioner 08/18/23 documented as of this encounter
--- OUTSIDE RECORDS SUMMARY | 2025-05-19 12:25 | XMS_ITS | Encounter Summary ---
Author Organization [employer] ([place], [place], [place], [place]) Address [address] [place] [address] Care Team Providers Care Capital Equipment Specialist Name Role Phone Marielos Amaral APRN Primary Care Provider Encounter Details Date Type Department Care Team (Late st Contact Info) Description 10/14/2019 Transcribed Document [facility] [place] Family Medicine [address] [place] [address] ProviderHaroldo MD [address] [place] [address] Social History Tobacco Use Types Packs/Day Years Used Date Smoking Tobacco: Never Assessed Sex and Gender Information Value Date Recorded Sex Assigned at Not on file Legal Sex Male 3:45 PM CDT Gender Identity Not on file Sexual Orientation Not on file documented as of this encounter Miscellaneous Notes * Cerner Conversion Note - Historical ProviderMD - 10/14/2019 2:15 PM EMAIL SPECIALIST Patient: ZACKARY ANTOINE Age: 68 years Sex: [...] 5 mg oral tablet: 1 Tab, Oral, [id number], 60 Tab, 0 Refill(s) Toprol-XL 25 mg [...] history: Cardiac catheterization. hernia repair. Tonsillectomy. Cholecystectomy; (75564). Appendectomy. left arm surgery. Coronary stents., Reviewed [...] EST Height Source Stated Height Entry Format [place] Height/Length, PERUVIAN (ft) 5 ft Height/Length PERUVIAN 9 Inch CLINICALHEIGHT 175.26 cm [place] Body Weight 69.73 kg Weight Source, ED Critical estimated dosing weight Weight Entry Format [place] Weight Khmer lb 190 lb CLINICALWEIGHT 86.36 kg Body [...] 82, normal sinus rhythm, no ectopy, normal MN & QRS intervals, EP Interp, ns st [...] 19.2 % LOW Lymph # 1.49 K/uL [place] % 8.9 % [place] # 0.69 K/uL Eos % 1.4 % Eos # 0.11 Baso % 0.3 % Baso # 0.02 Slide Review No . Chest X-Ray: Time reported 10/14/2019 17:04:00, no acute disease process, interpretation by Emergency Physician. Radiology results: Radiology Results (Last 48 hours) [id number] -- 10/14/2019 13:50 CR Chest 1 Vw [...] on filedocumented in this encounter Care Teams Capital Equipment Specialist Relationship Specialty Start Date End Date Amaral, Marielos, CELLULAR EQUIPMENT INSTALLER [address] [phone] PCP - General Nurse Practitioner 08/18/23 documented as of this encounter
--- OUTSIDE RECORDS SUMMARY | 2025-05-19 12:25 | XMS_ITS | Encounter Summary ---
Author Organization [employer] ([place], [place], [place], [place]) Address [address] [place] [address] Care Team Providers Care Field Artillery Radar Operator Name Role Phone Marielos Amaral KAYE Primary Care Provider [phone] Encounter Details Date Type Department Care Team (Late st Contact Info) Description 10/14/2019 Transcribed Document [facility] [place] Family Medicine [address] [place] [address] ProviderHaroldo MD [address] [place] [address] Social History Tobacco Use Types Packs/Day Years Used Date Smoking Tobacco: Never Assessed Sex and Gender Information Value Date Recorded Sex Assigned at Not on file Legal Sex Male 3:45 PM CDT Gender Identity Not on file Sexual Orientation Not on file documented as of this encounter Miscellaneous Notes * Cerner Conversion Note - Haroldo ProviderMD - 10/14/2019 1:50 PM COMPUTER ENGINEER ED Assessment Entered On: 10/14/2019 15:40 EST Performed On: 10/14/2019 14:00 EST by Ivone Damon, INDUSTRIAL SALES ENGINEER Quick Look Assessment Level of Consciousness : Alert, Awake Affect/Behavior : Appropriate, Calm, Cooperative Orientation : Oriented x 4 Skin Temperature : Warm Skin Description : Normal for ethnicity Ivone Damon, RN - 10/14/2019 15:38 EST ED General-Functional Assess Information Obtained From : Patient, Spouse Preferred Communication Mode : Verbal Communication Barrier : None Primary Language : Malagasy Any Spiritual/Cultural Needs or Requests : No [...] - 10/14/2019 15:38 EST Electronically signed by [facility], [facility] Conversion Treasury Assistant Cerner at 01/24/2023 10:31 AM CDT documented in this encounter Plan of Treatment Not on file documented as of this encounter Visit Diagnoses Not on filedocumented in this encounter Care Teams Field Artillery Radar Operator Relationship Specialty Start Date End Date Marielos Amaral, KAYE [address] [phone] PCP - General Nurse Practitioner 08/18/23 documented as of this encounter
--- OUTSIDE RECORDS SUMMARY | 2025-05-19 12:25 | XMS_ITS | Encounter Summary ---
Author Organization [employer] ([place], [place], [place], [place]) Address [address] [place] [address] Care Team Providers Care Retort Condenser Attendant Name Role Phone Munir Marielos RESTREPO Primary Care Provider Encounter Details Date Type Department Care Team (Late st Contact Info) Description 04/22/2022 Transcribed Document [facility] [place] [address] [place] [address] ProviderHaroldo MD [address] [place] [address] Social History Tobacco Use [...] does anyone, zehra hravey family and friends, scream or curse at [...] speak a language other than [place] at [facility]? Yes 10/30/2024 Do [...] 04/22/2022 11:13 EDT Electronically signed by Brittany [facility] Conversion Foot And Ankle Surgeon Cerner at 01/24/2023 10:31 AM CDT documented in this encounter Plan of Treatment Not on file documented as of this encounter Visit Diagnoses Not on filedocumented in this encounter Care Teams Retort Condenser Attendant Relationship Specialty Start Date End Date Marielos Amaral, SIGNAL OPERATOR [address] [address] PCP - General Nurse Practitioner 08/18/23 documented as of this encounter
--- OUTSIDE RECORDS SUMMARY | 2025-05-19 12:25 | XMS_ITS | Encounter Summary ---
Author Organization [employer] ([place], [place], [place], [place]) Address [address] [place] [address] Care Team Providers Care Labor Custodian Name Role Phone Marielos Amaral ROD AND TUBE STRAIGHTENER Primary Care Provider Encounter Details Date Type Department Care Team (Late st Contact Info) Description 10/14/2019 Transcribed Document [facility] [place] Family [place] [address] [place] [address] ProviderHaroldo MD [address] [place] [address] Social History Tobacco Use Types Packs/Day Years Used Date Smoking Tobacco: Never Assessed Sex and Gender Information Value Date Recorded Sex Assigned at Not on file Legal Sex Male 3:45 PM CDT Gender Identity Not on file Sexual Orientation Not on file documented as of this encounter Miscellaneous Notes * Cerner Conversion Note - Haroldo Warren MD - 10/14/2019 4:59 PM ASPHALT SPREADER OPERATOR Swallow Evaluation Entered On: 10/15/2019 9:46 EST Performed On: 10/15/2019 9:41 EST by BIPIN LEE SLP General Information Visit Type, SECURITY SOLUTIONS ARCHITECT : Initial evaluation Patient Orders : Speech Language Pathology Swallow Evaluation and Treatment -111 Start: 10/14/19 16:59:00 EST, Routine, For Swallow Eval and Treat, stroke - TYSHAWN BRANDT MD-[facility] Admission Date : Admission Date/Time: 10/14/19 17:19:00 Medical Chart Reviewed, SECURITY SOLUTIONS ARCHITECT : Yes Personal Devices : Personal Devices No Devices Recorded Assistive Devices : Assistive Devices No Devices Recorded Active Diagnoses : 10/14/2019 12:00 Cerebral infarction, unspecified 10/14/2019 12:00 Chest pain 10/14/2019 12:00 Chest pain, unspecified 10/14/2019 12:00 Hypertensive emergency 10/14/2019 12:00 Hypertensive urgency 10/14/2019 12:00 Other symptoms and signs involving the musculoskeletal system Therapy Diagnosis, SECURITY SOLUTIONS ARCHITECT : normal swallow function Previous Speech/Language Evaluations : normal last admission with CVA Previous Swallow Precautions : 02/06/19 regular diet recommended Previous Cognitive Evaluations : normal on last admission with CVA Diet/Intake Prior to Current Admission : regular Diet/Intake During Current Admission : regular Intubation Comment, SECURITY SOLUTIONS ARCHITECT : [place] Vital Signs RTF : Vitals [...] 9:41 EST General Status Patient Received Status, SECURITY SOLUTIONS ARCHITECT : Long sitting in bed Patient Left Status, SECURITY SOLUTIONS ARCHITECT : Long sitting in bed RN/PCT Informed Comment, SECURITY SOLUTIONS ARCHITECT : discussed with BIPIN HURLEY SLP - [...] evidence of dysphagia present Further Evaluation Required, SECURITY SOLUTIONS ARCHITECT : none indciated at this time Swallowing [...] - 10/15/2019 9:41 EST Therapy Indication Assessment SECURITY SOLUTIONS ARCHITECT Indicated : No SECURITY SOLUTIONS ARCHITECT Not Indicated : At prior level of function SECURITY SOLUTIONS ARCHITECT Interdisciplinary Consultation Needs : No Potential Barriers to SECURITY SOLUTIONS ARCHITECT : None evident SECURITY SOLUTIONS ARCHITECT Rehabilitation Potential : At prior level of function BIPIN LEE SLP - 10/15/2019 9:41 EST Swallow Plan/Goals Treatment Frequency, SECURITY SOLUTIONS ARCHITECT : Other: no follow up needed BIPIN LEE SLP - 10/15/2019 9:41 EST Education Barriers To Learning : None evident Individuals Taught : Patient Readiness to Learn : Cooperative Baseline Knowledge of Topic : None Readiness to Learn : Explanation Learning Style Preferences Patient : None BIPIN LEE SLP - 10/15/2019 9:41 EST SECURITY SOLUTIONS ARCHITECT Education Assessment Grid 1 Aspiration : Verbalizes understanding Diet Recommendation : Verbalizes understanding Evaluation Results : Verbalizes understanding BIPIN LEE SLP - 10/15/2019 9:[address] [facility] Charges Evaluation Swallowing Function : 1 BIPIN LEE SLP - 10/15/2019 9:41 EST Electronically signed by [facility], [facility] Conversion Surgical Services Manager Cerner at 01/24/2023 10:30 AM CDT documented in this encounter Plan of Treatment Not on file documented as of this encounter Visit Diagnoses Not on filedocumented in this encounter Care Teams Labor Custodian Relationship Specialty Start Date End Date Marielos Amaral, KAYE [address] [place] [address] PCP - General Nurse Practitioner 08/18/23 documented as of this encounter
--- OUTSIDE RECORDS SUMMARY | 2025-05-19 12:25 | XMS_ITS | Encounter Summary ---
Author Organization [employer] ([place], [place], [place], [place]) Address [address] [place] [address] Care Team Providers Care Reservations Sales Supervisor Name Role Phone AmaralMarielos roque KAYE Primary Care Provider Encounter Details Date Type Department Care Team (Late st Contact Info) Description 10/14/2019 Transcribed Document [facility] [place] Family Medicine [address] [place] [address] ProviderHaroldo MD [address] [place] [address] Social History Tobacco Use Types Packs/Day Years Used Date Smoking Tobacco: Never Assessed Sex and Gender Information Value Date Recorded Sex Assigned at Not on file Legal Sex Male 3:45 PM CDT Gender Identity Not on file Sexual Orientation Not on file documented as of this encounter Miscellaneous Notes * Cerner Conversion Note - Haroldo ProviderMD - 10/14/2019 8:22 PM STERILE SUPPLY TECHNICIAN DATE OF ADMISSION: 10/14/2019 CHIEF COMPLAINT: Chest [...] He was taken off aspirin by his tarper at [facility]. The remaining medications of preliminary ones include: [...] his chest pain, the patient assessment for [place] with repeat troponin. The patient received aspirin [...] and they are aware of the plan. /[id number] Brennan Lopes MD GG/AQ / GG / MODL CC: Dr. Head Electronically signed by [facility] Conversion Flight Teacher Cerner at 01/24/2023 10:21 AM CDT documented in this encounter Plan of Treatment Not on file documented as of this encounter Visit Diagnoses Not on filedocumented in this encounter Care Teams Reservations Sales Supervisor Relationship Specialty Start Date End Date Munir KAYE Arceo [address] [address] PCP - General Nurse Practitioner 08/18/23 documented as of this encounter
--- OUTSIDE RECORDS SUMMARY | 2025-05-19 12:25 | XMS_ITS | Encounter Summary ---
Author Organization [employer] ([place], [place], [place], [place]) Address [address] [place] [address] Care Team Providers Care Motorcycle Police Officer Name Role Phone Munir Marielos RESTREPO Primary Care Provider [phone] Encounter Details Date Type Department Care Team (Late st Contact Info) Description 04/22/2022 Transcribed Document [facility] [address] [place] [address] ProviderHaroldo MD [address] [place] [address] Social History Tobacco Use Types [...] Do you speak a language other than Faroese at [facility]? Yes [...] 04/22/2022 10:02 EDT Electronically signed by Brittany [facility] Conversion Mate Chief Cerner at 01/24/2023 10:30 AM CDT documented in this encounter Plan of Treatment Not on file documented as of this encounter Visit Diagnoses Not on filedocumented in this encounter Care Teams Motorcycle Police Officer Relationship Specialty Start Date End Date Marielos Amaral, KAYE [address] [place] [address] PCP - General Nurse Practitioner 08/18/23 documented as of this encounter
--- OUTSIDE RECORDS SUMMARY | 2025-05-19 12:25 | XMS_ITS | Encounter Summary ---
Author Organization [employer] ([place], [place], [place], [place]) Address [address] [place] [address] Care Team Providers Care Teacher Visually Impaired Name Role Phone Marielos Amaral COUNTY JUDGE Primary Care Provider Encounter Details Date Type Department Care Team (Late st Contact Info) Description 04/14/2019 Transcribed Document [facility] [place] Family Medicine [address] [place] [address] ProviderHaroldo MD [address] [place] [address] Social History Tobacco Use Types Packs/Day Years Used Date Smoking Tobacco: Never Assessed Sex and Gender Information Value Date Recorded Sex Assigned at Not on file Legal Sex Male 3:45 PM CDT Gender Identity Not on file Sexual Orientation Not on file documented as of this encounter Miscellaneous Notes * Cerner Conversion Note - Haroldo ProviderMD - 04/14/2019 5:07 PM CDT [address] [address] ELINA ZACKARY COOK :1950 Visit [...] DOCKERY MD-GAE When Within As needed Where: [address] [place] [address] Medications What How Much When Instructions Next [...] Assistance with quitting is available by contacting 6-339-GMYONOW. This is a free resource providing counseling, support, and referral. Or you may contact your personal physician. [employer] Suicide Prevention Lifeline: The National Suicide Prevention [...] was given the opportunity to ask questions. Patient/Doctor Chiropractic Name: Patient/Doctor Chiropractic Signature: Relationship to Patient: Clinician/Hospital Doctor Chiropractic Signature: Date: Electronically signed by Brittany, [facility] Conversion Electrician Machine [employer] at 01/24/2023 10:19 AM CDT documented in this encounter Plan of Treatment Not on file documented as of this encounter Visit Diagnoses Not on filedocumented in this encounter Care Teams Teacher Visually Impaired Relationship Specialty Start Date End Date Marielos Amaral APRN [address] [address] PCP - General Nurse Practitioner 08/18/23 documented as of this encounter
--- OUTSIDE RECORDS SUMMARY | 2025-05-19 12:26 | XMS_ITS | Encounter Summary ---
Author Organization [employer] ([place], [place], [place], [place]) Address [address] [place] [address] Care Team Providers Care Plastic Duplicator Name Role Phone Marielos Amaral APRN Primary Care Provider Encounter Details Date Type Department Care Team (Late st Contact Info) Description 02/08/2019 Transcribed Document [facility] Radiology [address] [id number] Fidencio Tolliver MD [address] [place] [address] [address] [place] [address] Social History Tobacco Use Types Packs/Day Years [...] risk factors. CODE STATUS: Full code CONSULTS: [facility] cardiology WORKUP / PROCEDURES: CT [...] approximately 50% stenosis of theproximal basilar artery. machine tester show mild stenosis proximally. IMPRESSION: 1. 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 Anterior circulation intact.3. Mild bilateral STAFF SONOGRAPHER disease. This study was performed using dose [...] mg, Oral, BID Eliquis: 5 mg, Oral, [id number] Flomax: 0.4 mg, Oral, Daily MiraLax: 17 [...] Results Review Radiology Results (Last 48 hours) [id number] -- 02/07/2019 11:53 MRI Brain WO (02/06/2019 [...] initiated. DC planning discussed with patient and rn case mgr, he shouldn't is looking for possible rehabilitation placement. documented in this encounter Plan of Treatment Not on file documented as of this encounter Visit Diagnoses Not on filedocumented in this encounter Care Teams Plastic Duplicator Relationship Specialty Start Date End Date Marielos Amaral, KAYE [address] [place] [address] PCP - General Nurse Practitioner 08/18/23 documented as of this encounter
--- OUTSIDE RECORDS SUMMARY | 2025-05-19 12:26 | XMS_ITS | Encounter Summary ---
Author Organization [employer] ([place], [place], [place], [place]) Address [address] [place] [address] Care Team Providers Care Gis Instructor Name Role Phone Munir Marielos RESTREPO Primary Care Provider [phone] Encounter Details Date Type Department Care Team (Late st Contact Info) Description 04/22/2022 Transcribed Document [facility] [place] [address] [place] [address] ProviderHaroldo MD [address] [place] [address] Social History Tobacco Use Types [...] speak a language other than Uruguayan at [facility]? Yes 10/30/2024 [...] Shala Cole RN - 04/22/2022 17:19 EDT documented in this encounter Plan of Treatment Not on file documented as of this encounter Visit Diagnoses Not on filedocumented in this encounter Care Teams Gis Instructor Relationship Specialty Start Date End Date Marielos Amaral, KAYE [address] [id number] PCP - General Nurse Practitioner 08/18/23 documented as of this encounter
--- OUTSIDE RECORDS SUMMARY | 2025-05-19 12:26 | XMS_ITS | Encounter Summary ---
Author Organization [employer] ([place], [place], [place], [place]) Address [address] [place] [address] Care Team Providers Care Athletics Teacher Name Role Phone Marielos Amaarl KAYE Primary Care Provider Encounter Details Date Type Department Care Team (Late st Contact Info) Description 02/08/2019 Transcribed Document [facility] [place] Family Medicine [address] [place] [address] ProviderHaroldo MD [address] [place] [address] Social History Tobacco Use Types Packs/Day Years [...] On: 02/08/2019 9:43 EDT by DIONE REY, Stencil Maker Primary Insurance Authorization Authorization and Policy Numbers : Insurance 1 Health Plan: [employer] GOLD PLUS HMO Policy Number: [id number] Authorization Number: PENDING IP Insurance Primary Name : [employer] Choice Authorization Status-Primary : Awaiting callback Authorized Service Begin Date-Primary : 02/05/2019 EDT Authorization Comments-Primary : inpt auth is pending per availity trans id# [id number] Historical Authorization Comments-Primary : Comment 1: setup case for IP on availity. faxed clinicals via cerner. (GEGE JUÁREZ RN 02/07/2019 11:56) Comment 2: setup on availity obs approved. (GEGE JUÁREZ RN 02/06/2019 08:52) DIONE REY, Stencil Maker - 02/08/2019 9:43 EDT Electronically signed by Brittany [facility] Conversion Tank Calibrator Cerner at 01/24/2023 10:31 AM CDT documented in this encounter Plan of Treatment Not on file documented as of this encounter Visit Diagnoses Not on filedocumented in this encounter Care Teams Athletics Teacher Relationship Specialty Start Date End Date Marielos Amaral, SACK LIFTER [address] [phone] PCP - General Nurse Practitioner 08/18/23 documented as of this encounter
--- OUTSIDE RECORDS SUMMARY | 2025-05-19 12:26 | XMS_ITS | Encounter Summary ---
Author Organization [employer] ([place], [place], [place], [place]) Address [address] [place] [address] Care Team Providers Care Aircraft Instrument Mechanic Name Role Phone Marielos Amaral KAYE Primary Care Provider Encounter Details Date Type Department Care Team (Late st Contact Info) Description 12/12/2020 Transcribed Document [facility] [place] [address] [place] [address] ProviderHaroldo MD [address] [place] [address] Social History Tobacco Use Types Packs/Day Years Used Date Smoking Tobacco: Never Assessed Sex and Gender Information Value Date Recorded Sex Assigned at Not on file Legal Sex Male 3:45 PM CDT Gender Identity Not on file Sexual Orientation Not on file documented as of this encounter Miscellaneous Notes * Cerner Conversion Note - Haroldo ProviderMD - 12/12/2020 4:43 PM STRATEGIC PARTNER DEVELOPMENT MANAGER [facility] [address] [place] [id number] ZCAKARY ANTOINE :1950 Visit Time:12/12/2020 Your Visit Summary Your Care Team Admitting Physician - MARIAM CHATMAN MD-CAR Attending Physician - MARIAM CHATMAN MD-CAR Primary Care Physician - KATELYN MCKEON MD-[facility] Referring Physician - FALLUJI, NEZAR M, MD-CAR Your Diagnosis Atherosclerotic heart disease of [place] coronary artery without angina pectoris, Atherosclerotic heart disease of [place] coronary artery without angina pectoris Discharge Vitals [...] EDT Comments Appointment has been made Where: [address] [place] [address] [place] [address]- Business (1) Medications What How Much When [...] 10/25/2011 Document Revised: 12/14/2012 Document Reviewed: 10/25/2011 [facility] Patient Information ??2014 Xormis. Coronary Angiogram A coronary angiogram is an [...] including vitamins, herbs, eye drops, creams, and achs-qiy-uyrhiqd medicines. ??? Any problems you or family [...] Reviewed: 07/04/2017 Elsevier Patient Education ?? 2020 YOUnite. Heart-Healthy Eating Plan Heart-healthy meal planning includes: [...] Fats and oils Meat fat, or shortening. [place] butter, hydrogenated oils, palm oil, coconut oil, [...] 03/23/2013 Document Revised: 11/26/2018 Document Reviewed: 10/30/2018 [employer] Patient Education ?? 2020 YOUnite. Moderate Conscious Sedation, Adult, Care After These [...] you are awake and alert. ??? Take bbjk-zoe-qtjpncr and prescription medicines only as told by [...] 07/13/2014 Document Revised: 09/04/2018 Document Reviewed: 01/11/2017 [employer] Patient Education ?? 2020 YOUnite. FAQ ??? Patient COVID-19 testing Why do [...] through the local health department and the [place] Department for Public Health. Those organizations are [...] and need to call 911, notify the reel and rewinder operator that you have, or think you [...] clean your hands with an alcohol-based hand esl instructor that contains at least 60% alcohol. Clean your hands often. ??? Wash hands: Wash your hands often with soap and water for at least 20 seconds when visibly dirty. This is especially important after blowing your nose, coughing or sneezing, and going to the bathroom, and before eating or preparing food. ??? Hand esl instructor: Use an alcohol-based hand esl instructor with at least 60% alcohol, covering all [...] and water or put them in the machine tool operator. Clean all high-touch surfaces every day. Clean [...] or body fluids on them. ??? Household mult au matic operator and disinfectants: Clean the area or item [...] list of disinfectants can be found here: https://www.epa.gov/pesticide-registration/ceoa-n-emkkkxywyzqaz-ykr-eutabkp-hk rs-cov-2 Emergency Awareness and Preventative Care STROKE [...] Assistance with quitting is available by contacting 0-814-QTEV-NOW. This is a free resource providing counseling, [...] was given the opportunity to ask questions. Patient/Cadd Operator Name: Patient/Cadd Operator Signature: Relationship to Patient: Clinician/Hospital Cadd Operator Signature: Date: Electronically signed by Brittany, [facility] Conversion Aws Solution Architect Cerner at 01/24/2023 10:30 AM CDT documented in this encounter Plan of Treatment Not on file documented as of this encounter Visit Diagnoses Not on filedocumented in this encounter Care Teams Aircraft Instrument Mechanic Relationship Specialty Start Date End Date Marielos Amaral, MYSTERY SHOPPER [address] [place] [address] PCP - General Nurse Practitioner 08/18/23 documented as of this encounter
--- OUTSIDE RECORDS SUMMARY | 2025-05-19 12:26 | XMS_ITS | Encounter Summary ---
Author Organization [employer] ([place], [place], [place], [place]) Address [address] [place] [address] Care Team Providers Care Conditioning Room Worker Name Role Phone Munir Marielos RESTREPO Primary Care Provider Encounter Details Date Type Department Care Team (Late st Contact Info) Description 04/22/2022 Transcribed Document [facility] [place] [address] [place] [address] ProviderHaroldo MD [address] [place] [address] Social History Tobacco Use Types [...] speak a language other than Filipino at [facility]? Yes 10/30/2024 Do [...] on filedocumented in this encounter Care Teams Conditioning Room Worker Relationship Specialty Start Date End Date Marielos Amaral, TREE TAPPING LABORER [address] [address] PCP - General Nurse Practitioner 08/18/23 documented as of this encounter
--- OUTSIDE RECORDS SUMMARY | 2025-05-19 12:26 | XMS_ITS | Encounter Summary ---
Author Organization [facility] ([place], [place], [place], [place]) Address [address] [place] [address] Care Team Providers Care Health Information Provider Name Role Phone Munir Marielos RESTREPO Primary Care Provider Encounter Details Date Type Department Care Team (Late st Contact Info) Description 04/22/2022 Transcribed Document [facility] [place] Family Medicine [address] [place] [address] ProviderHaroldo MD [address] [place] [address] Social History Tobacco Use Types [...] speak a language other than Norwegian at [facility]? Yes 10/30/2024 Do you want [...] Communication Barrier : None Primary Language : Norwegian Any Spiritual/Cultural Needs or Requests : No [...] Updated: 04/14/2019 14:21:58 EDT by MIKO GALLAGHER, LIUS) Alcohol Use History No. Date/Time of Last [...] - 04/22/2022 10:02 EDT Electronically signed by [facility] Conversion Public Transportation Inspector Cerner at 01/24/2023 10:25 AM CDT documented in this encounter Plan of Treatment Not on file documented as of this encounter Visit Diagnoses Not on filedocumented in this encounter Care Teams Health Information Provider Relationship Specialty Start Date End Date Marielos Amaral, PLATE CLEANER [address] [place] [address] PCP - General Nurse Practitioner 08/18/23 documented as of this encounter
--- OUTSIDE RECORDS SUMMARY | 2025-05-19 12:26 | XMS_ITS | Encounter Summary ---
Author Organization [employer] ([place], [place], [place], [place]) Address [address] [place] [address] Care Team Providers Care Interventionist Name Role Phone Marielos Amaral KAYE Primary Care Provider [phone] Encounter Details Date Type Department Care Team (Late st Contact Info) Description 02/09/2019 Transcribed Document [facility] [place] [facility] [place] [address] ProviderHaroldo MD [address] [place] [address] Social History Tobacco Use Types Packs/Day Years [...] On: 02/09/2019 13:20 EDT by GERALDINE BROWN, RN-Research Technician Final Discharge Planning Discharge Arrangements : Patient Post-Acute Information Patient Name: ZACKARY ANTOINE Gender: Male : [birth year] Age: 68 Years No Post-Acute Placement(s) Listed No Post-Acute Service(s) Listed No [place] Referral(s) Listed GERALDINE BROWN, RN-Research Technician - 02/09/2019 13:20 EDT Accts Placement Outside [facility] Account #1 Service : Outpatient physical therapy Organization : [facility] Business Address : [address] [address] Comment (Comment: wanted them to call her to arrange her first appointment [GERALDINE BROWN, RN-Research Technician - 02/09/2019 13:20 EDT] ) GERALDINE BROWN, RN-Research Technician - 02/09/2019 13:20 EDT Transportation Needs : Car Discharge Transportation Arrangement Cmt : Follow Up Appointment Scheduled : Yes Is Patient High/Moderate Readmission Risk? : No Patient/Family Notified of Plan : Yes Patient/Family Notified : patient and his Discharge To Care Management : Home/Residential/Fpc or Self Care -01 GERALDINE BROWN, RN-Research Technician - 02/09/2019 13:20 EDT Final Narrative Note Final Narrative Note : Pt's requests outpatient physical therapy at [facility] in [place] (phone [phone] / fax [phone]). She wants them to contact her to schedule pt's first appointment. Attented to call [facility] but no answer. Orders faxed. GERALDINE BROWN, RN-Research Technician - 02/09/2019 13:20 EDT documented in this encounter Plan of Treatment Not on file documented as of this encounter Visit Diagnoses Not on filedocumented in this encounter Care Teams Interventionist Relationship Specialty Start Date End Date Marielos Amaral, KAYE [address] [address] PCP - General Nurse Practitioner 08/18/23 documented as of this encounter
--- OUTSIDE RECORDS SUMMARY | 2025-05-19 12:26 | XMS_ITS | Encounter Summary ---
Author Organization [employer] ([place], [place], [place], [place]) Address [address] [place] [address] Care Team Providers Care Qa Lead Name Role Phone Marielos Amaral KAYE Primary Care Provider Encounter Details Date Type Department Care Team (Late st Contact Info) Description 02/09/2019 Transcribed Document [facility] [place] [address] [place] [address] ProviderHaroldo MD [address] [place] [address] Social History Tobacco Use Types Packs/Day Years Used Date Smoking Tobacco: Never Assessed Sex and Gender Information Value Date Recorded Sex Assigned at Not on file Legal Sex Male 3:45 PM CDT Gender Identity Not on file Sexual Orientation Not on file documented as of this encounter Miscellaneous Notes * Cerner Conversion Note - Haroldo ProviderMD - 02/09/2019 2:00 AM CDT Cafeteria Server Details Entered On: 02/09/2019 3:10 EDT Performed On: 02/09/2019 2:00 EDT by Cara Chaudhary RN Order Details Transport Mode Order Detail : Wheelchair Isolation Precautions Order Detail : Standard Precautions Order Detail : N/A IV Order Detail : 1 Lift/Transfer : Minimal Central Line Order Detail : No Room Service : Appropriate Arterial Line : No Cara Chaudhary RN - 02/09/2019 3:10 EDT Electronically signed by Renetta Soto Conversion Information Systems Technician Cerner at 01/24/2023 10:36 AM CDT documented in this encounter Plan of Treatment Not on file documented as of this encounter Visit Diagnoses Not on filedocumented in this encounter Care Teams Qa Lead Relationship Specialty Start Date End Date Marielos Amaral, CODING COORDINATOR [address] [phone] PCP - General Nurse Practitioner 08/18/23 documented as of this encounter
--- OUTSIDE RECORDS SUMMARY | 2025-05-19 12:26 | XMS_ITS | Encounter Summary ---
Author Organization [employer] ([place], [place], [place], [place]) Address [address] [place] [address] Care Team Providers Care Armature Straightener Name Role Phone Marielos Amaral APRN Primary Care Provider Encounter Details Date Type Department Care Team (Late st Contact Info) Description 12/12/2020 Transcribed Document [facility] Cardiology [address] [place] [address] [place] [address] [place] [address] [address] [place] [address] Social History Tobacco Use Types Packs/Day Years [...] None Author: MARIAM SALGUERO MD-CAR Basic Information Practice Manager: Mariam Salguero Chief Complaint Abnormal stress History [...] Refill(s) Problem list: All Problems Angina / 924590116 / Confirmed Acute cerebrovascular accident (CVA) / 767914284 / Confirmed Coronary artery disease / 9489907668 / Confirmed Diabetes mellitus type II / 08688588 / Confirmed GERD - Gastro-esophageal reflux disease / 2199889366 / Confirmed Heart failure / 744820858 / Confirmed Heart murmur / 046407833 / Confirmed History of obstructive sleep apnea / 27460881 / Confirmed Hyperlipidemia / 70289247 / Confirmed Hypertension / 64497915 / Confirmed Impaired vision / 81177000 / Confirmed Enlarged prostate / 571720113 / Confirmed Migraine / 75824197 / Confirmed Stented coronary artery / 0863526591 / Confirmed Histories No education data available. [...] 0.5 Past Medical History: Active Atrial fibrillation (70753607) CAD - Coronary artery disease (1275722544) Cardiomyopathy (572170394) HLD - Hyperlipidemia (510232895) HTN - Hypertension (1907111588) Type 2 diabetes mellitus (879440775) Family History: Patient was adopted. No family history items have been selected or recorded. Procedure history: Cardiac catheterization. hernia repair. Tonsillectomy. Cholecystectomy; (92454). Appendectomy. left arm surgery. Coronary stents. EGD - Esophagogastroduodenoscopy (3268100665). Comments: 04/12/2020 7:04 EDT - Roxana Brady, RN with radio frequency ablation CABG x 4 - Coronary artery bypass grafts x 4 ([id number]). Physical Examination VS/Measurements No qualifying data available [...] Normal strength, No deformity. Integumentary: Warm, Dry, [place], No rash. Neurologic: Alert, Oriented, No focal [...] consent will be obtained. Further recommendations pending [facility] results. documented in this encounter Plan of Treatment Not on file documented as of this encounter Visit Diagnoses Not on filedocumented in this encounter Care Teams Armature Straightener Relationship Specialty Start Date End Date Marielos Amaral, KAYE [address] [place] [address] PCP - General Nurse Practitioner 08/18/23 documented as of this encounter
--- OUTSIDE RECORDS SUMMARY | 2025-05-19 12:26 | XMS_ITS | Encounter Summary ---
Author Organization [employer] ([place], [place], [place], [place]) Address [address] [place] [address] Care Team Providers Care Sustainability Engineer Name Role Phone Marielos Amaral KAYE Primary Care Provider Encounter Details Date Type Department Care Team (Late st Contact Info) Description 02/09/2019 Transcribed Document [facility] [place] Family Medicine [address] [place] [address] ProviderHaroldo MD [address] [place] [address] Social History Tobacco Use Types Packs/Day Years [...] On: 02/09/2019 15:14 EDT by Melany Velasquez Head Start Teacher Discharge Summary Discharge Summary Provider Notified : Nursing, Physical Therapy Reason for Discharge : Discharge order Discharged to, Therapy : Outpatient rehabilitation Melany Velasquez Head Start Teacher - 02/09/2019 15:14 EDT Discharge Summary Comment, PT : pt has discharge orders in from hospital to home with outpatient rehab, per last PTx - pt compeletely independent for bed mobility and transfers, pt ambulated 100' x 2 with supervision and no AD, pt ascended/descended 10 stairs with supervision. PT has reviewed and agrees with note. JACQUELYN KIM, PT - 02/09/2019 15:48 EDT Pin Ticket Machine Operator Goals Mobility/Bed Mobility LTG PT Grid Goal #1 Goal #2 Activity : Supine to sit Sit to stand Assist : Independent, complete Independent, complete Date to Meet : 02/20/2019 EDT 02/20/2019 EDT Goal Status : Goal met Goal met Date Met : 02/07/2019 EDT 02/07/2019 EDT Comment : HOB flat Melany Velasquez Head Start Teacher - 02/09/2019 15:14 EDT Melany Velasquez Head Start Teacher - 02/09/2019 15:14 EDT Ambulation LTG Grid Goal #1 Device : Other: no AD vs SPC Distance : 300 ft Assist : Independent, modified Date to Meet : 02/20/2019 EDT Goal Status : Goal met Date Met : 10/06/2018 EST Melany Velasquez Head Start Teacher - 02/09/2019 15:14 EDT Stairs LTG Grid Goal #1 Device : None Number of Steps : 4 Handrail(s) : One handrail Assist : Independent, modified Date to Meet : 02/21/2019 EDT Goal Status : Not met Melany Velasquez Head Start Teacher - 02/09/2019 15:14 EDT documented in this encounter Plan of Treatment Not on file documented as of this encounter Visit Diagnoses Not on filedocumented in this encounter Care Teams Sustainability Engineer Relationship Specialty Start Date End Date Marielos Amaral, KAYE [address] [address] PCP - General Nurse Practitioner 08/18/23 documented as of this encounter
--- OUTSIDE RECORDS SUMMARY | 2025-05-19 12:26 | XMS_ITS | Encounter Summary ---
Author Organization [employer] ([place], [place], [place], [place]) Address [address] [place] [address] Care Team Providers Care Theology Professor Name Role Phone Munir Marielos RESTREPO Primary Care Provider Encounter Details Date Type Department Care Team (Late st Contact Info) Description 04/22/2022 Transcribed Document [facility] [place] Family Medicine [address] [place] [address] ProviderHaroldo MD [address] [place], [place] [...] speak a language other than [place]guillan at [facility]? Yes 10/30/2024 Do you want help with [...] head, neck, ot back pain. Jose M, mix maker. Primary Care Provider KATELYN MCKEON MD-[facility] History of Present Illness Mr. Antoine [...] alert, and oriented, CN I-XII intact, equal warehouse handler and arm strength bilaterally without unilateral weakness [...] Diagnostic Results Radiology Results (Last 48 hours) [id number] -- 04/22/2022 12:30 CR Chest 1 Vw [...] # 0.74 x10(3)/uL (Low) 04/22/2022 09:19 EDT Hendricks % 10.0 % (High) 04/22/2022 09:19 EDT Hendricks # 0.76 K/uL 04/22/2022 09:19 EDT Eos [...] on filedocumented in this encounter Care Teams Theology Professor Relationship Specialty Start Date End Date Marielos Amaral, BILL CLERK [address] [address] PCP - General Nurse Practitioner 08/18/23 documented as of this encounter
--- OUTSIDE RECORDS SUMMARY | 2025-05-19 12:26 | XMS_ITS | Encounter Summary ---
Author Organization [employer] ([place], [place], [place], [place]) Address [address] [place] [address] Care Team Providers Care Lubrication Equipment Servicer Name Role Phone Marielos Amaral KAYE Primary Care Provider Encounter Details Date Type Department Care Team (Late st Contact Info) Description 12/12/2020 Transcribed Document [facility] [place] Family Medicine [facility] [address] ProviderHaroldo MD [address] [place], [place] [address] Social History Tobacco Use Types Packs/Day Years Used Date Smoking Tobacco: Never Assessed Sex and Gender Information Value Date Recorded Sex Assigned at Not on file Legal Sex Male 3:45 PM CDT Gender Identity Not on file Sexual Orientation Not on file documented as of this encounter Miscellaneous Notes * Cerner Conversion Note - Historical ProviderMD - 12/12/2020 4:42 PM PROSTHETIC ASSISTANT Nursing Discharge Summary Entered On: 12/12/2020 16:43 [...] - 12/12/2020 16:42 EST Electronically signed by [facility], [facility] Conversion Certified Coder Cerner at 01/24/2023 10:20 AM CDT documented in this encounter Plan of Treatment Not on file documented as of this encounter Visit Diagnoses Not on filedocumented in this encounter Care Teams Lubrication Equipment Servicer Relationship Specialty Start Date End Date Marielos Amaral, PIECE MARKER SMALL ARMS [address] [place] [address] PCP - General Nurse Practitioner 08/18/23 documented as of this encounter
--- OUTSIDE RECORDS SUMMARY | 2025-05-19 12:26 | XMS_ITS | Encounter Summary ---
Author Organization [employer] ([place], [place], [place], [place]) Address [address] [place] [address] Care Team Providers Care Oil Dispatcher Name Role Phone Marielos Amaral KAYE Primary Care Provider Encounter Details Date Type Department Care Team (Late st Contact Info) Description 02/08/2019 Transcribed Document [facility] [place] Family Medicine [address] [place] [address] ProviderHaroldo MD [address] [place] [address] Social History Tobacco Use Types Packs/Day Years Used Date Smoking Tobacco: Never Assessed Sex and Gender Information Value Date Recorded Sex Assigned at Not on file Legal Sex Male 3:45 PM CDT Gender Identity Not on file Sexual Orientation Not on file documented as of this encounter Miscellaneous Notes * [employer]ak Conversion Note - Haroldo ProviderMD - 02/08/2019 2:00 AM CDT Sixth Grade Teacher Details Entered On: 02/08/2019 3:35 EDT Performed [...] on filedocumented in this encounter Care Teams Oil Dispatcher Relationship Specialty Start Date End Date Marielos Amaral, HORSE RACE TIMER [address] [address] PCP - General Nurse Practitioner 08/18/23 documented as of this encounter
--- OUTSIDE RECORDS SUMMARY | 2025-05-19 12:26 | XMS_ITS | Encounter Summary ---
Author Organization [employer] ([place], [place], [place], [place]) Address [address] [place] [address] Care Team Providers Care Director Music Name Role Phone Marielos Amaral KAYE Primary Care Provider Encounter Details Date Type Department Care Team (Late st Contact Info) Description 02/09/2019 Transcribed Document [facility] [place] [address] [place] [address] ProviderHaroldo MD [address] [place] [address] Social History Tobacco Use Types Packs/Day Years [...] 02/09/2019 4:50 EDT Electronically signed by Brittany [facility] Conversion Senior Mortgage Underwriter Cerner at 01/24/2023 10:29 AM CDT documented in this encounter Plan of Treatment Not on file documented as of this encounter Visit Diagnoses Not on filedocumented in this encounter Care Teams Director Music Relationship Specialty Start Date End Date Rosette Amarale, ETIQUETTE COACH [address] [place] [address] PCP - General Nurse Practitioner 08/18/23 documented as of this encounter
--- OUTSIDE RECORDS SUMMARY | 2025-05-19 12:26 | XMS_ITS | Encounter Summary ---
Author Organization [employer] ([place], [place], [place], [place]) Address [address] [place] [address] Care Team Providers Care Agriculture Extension Specialist Name Role Phone AmaralMarielos roque KAYE Primary Care Provider [phone] Encounter Details Date Type Department Care Team (Late st Contact Info) Description 12/12/2020 Transcribed Document [facility] [place] [facility] [place] [address] ProviderHaroldo MD [address] [place], [place] [address] Social History Tobacco Use Types Packs/Day Years Used Date Smoking Tobacco: Never Assessed Sex and Gender Information Value Date Recorded Sex Assigned at Not on file Legal Sex Male 3:45 PM CDT Gender Identity Not on file Sexual Orientation Not on file documented as of this encounter Miscellaneous Notes * Cerner Conversion Note - Haroldo ProviderMD - 12/12/2020 3:20 PM STRAW HAT PLUNGER OPERATOR Patient Education Materials Follows: Groin Site Care [...] Document Reviewed: 10/25/2011 ExitCare? Patient Information ?2013 [employer]. Heart-Healthy Eating Plan Heart-healthy meal planning includes: [...] Fats and oils Meat fat, or shortening. Hegins butter, hydrogenated oils, palm oil, coconut oil, [...] 03/23/2013 Document Revised: 11/26/2018 Document Reviewed: 10/30/2018 [employer] Patient Education ? 2020 [employer] Moderate Conscious Sedation, Adult, Care After [...] you are awake and alert. ??? Take rcto-tgo-ovztrqa and prescription medicines only as told by [...] 07/13/2014 Document Revised: 09/04/2018 Document Reviewed: 01/11/2017 [employer] Patient Education ? 2020 [employer]. FAQ - Patient COVID-19 testing Why do [...] through the local health department and the [place] Department for Public Health. Those organizations are [...] and need to call 911, notify the unhairing machine operator that you have, or think [...] clean your hands with an alcohol-based hand cyber intel planner that contains at least 60% alcohol. Clean your hands often. ??? Wash hands: Wash your hands often with soap and water for at least 20 seconds when visibly dirty. This is especially important after blowing your nose, coughing or sneezing, and going to the bathroom, and before eating or preparing food. ??? Hand cyber intel planner: Use an alcohol-based hand cyber intel planner with at least 60% alcohol, covering all [...] and water or put them in the school treasurer. Clean all high-touch surfaces every day. Clean [...] or body fluids on them. ??? Household ad operations intern and disinfectants: Clean the area or item [...] list of disinfectants can be found here: https://www.epa.gov/pesticide-registration/bqtr-i-lcyarnwkunbfa-hhb-pbnqkej-ul rs-cov-2 Radiology Coronary Angiogram A coronary angiogram [...] including vitamins, herbs, eye drops, creams, and hpna-fht-pyrwszf medicines. ??? Any problems you or family [...] 03/28/2004 Document Revised: 09/04/2018 Document Reviewed: 07/04/2017 ElseThat{img} Patient Education ? 2020 [employer]. documented in this encounter Plan of Treatment Not on file documented as of this encounter Visit Diagnoses Not on filedocumented in this encounter Care Teams Agriculture Extension Specialist Relationship Specialty Start Date End Date Marielos Amaral APRN [address] [address] PCP - General Nurse Practitioner 08/18/23 documented as of this encounter
--- OUTSIDE RECORDS SUMMARY | 2025-05-19 12:26 | XMS_ITS | Encounter Summary ---
Author Organization [employer] ([place], [place], [place], [place]) Address [address] [place] [address] Care Team Providers Care Veneer Joiner Name Role Phone Munir Marielos RESTREPO Primary Care Provider [phone] Encounter Details Date Type Department Care Team (Late st Contact Info) Description 04/22/2022 Transcribed Document [facility] [place] [address] [place] [address] ProviderHaroldo MD [address] [place] [address] Social History Tobacco Use Types [...] speak a language other than Burmese at [facility]? Yes 10/30/2024 Do you want help with [...] On: 04/22/2022 21:30 EDT by Cara Butler Piano Case And Bench Assembler Process Patient Disposition : Admit/Observe Personal Belongings With Patient : Yes IV Discontinued : No Cara Butler Rn - 04/23/2022 0:58 EDT Admission, ED Nurse Report Accepted By : LUIS Owusu `Nurse Report (Hand Off) : Called Fluids/Drips Continued on Admission : Yes Mode Of Departure : Stretcher Cara Butler Rn - 04/23/2022 0:58 EDT documented in this encounter Plan of Treatment Not on file documented as of this encounter Visit Diagnoses Not on filedocumented in this encounter Care Teams Veneer Joiner Relationship Specialty Start Date End Date Marielos Amaral, MERCHANDISE PROCESSOR [address] [address] PCP - General Nurse Practitioner 08/18/23 documented as of this encounter
--- OUTSIDE RECORDS SUMMARY | 2025-05-19 12:26 | XMS_ITS | Encounter Summary ---
Author Organization [employer] ([place], [place], [place], [place]) Address [address] [place] [address] Care Team Providers Care Credit Risk Analytics Manager Name Role Phone Munir Marielos RESTREPO Primary Care Provider Encounter Details Date Type Department Care Team (Late st Contact Info) Description 04/22/2022 Transcribed Document [facility] [place] Family Medicine [address] [place] [address] ProviderHaroldo MD [address] [place], [place] [...] speak a language other than Fijian at [facility]? Yes 10/30/2024 Do you want [...] Unaccompanied Legal Guardian : No Support Person/Patient Used Car Salesperson : Yes Support Person/Pt Rep Name : Enriqueta - Contact Password : peanut Support Person/Pt Rep Contact Information : [phone], cell Want Family/Rep/Phys Notified of Admit : [...] head, neck, ot back pain. Jose M metal products fabricator assembler. Information Obtained From : Patient Primary Language : Fijian Preferred Communication Mode : Verbal Communication Barrier : None Unit Nurse Needed : No Umer John Rn Flex [...] Level : 46 or > High Risk Randolph Fall Interventions : Adequate lighting, Assistive devices [...] Source : Stated Height Entry Format : [place] Height, Feet : 5 ft(Converted to: 152 cm, 60 Inch) Height, Inches : 9 Inch(Converted to: 0 ft 9 Inch, 22.86 cm) Clinical Height : 175.26 cm Weight Source : Bed scale Weight Entry Format : [place] Clinical Dosing Weight : 85 kg Weight, Pounds : 187 lb Body Surface Area (BSA) : 2.01 m2 Body Mass Index : 27.7 kg/m2 (HI) [place] Body Weight : 70 kg Umer John [...] John Rn Flex - 04/22/2022 22:36 EDT [place] Suicide Severity Rating Scale (C-SSRS) CSSRS Past [...] on filedocumented in this encounter Care Teams Credit Risk Analytics Manager Relationship Specialty Start Date End Date Marielos Amaral APRN [address] [place] [id number] PCP - General Nurse Practitioner 08/18/23 documented as of this encounter
--- OUTSIDE RECORDS SUMMARY | 2025-05-19 12:26 | XMS_ITS | Encounter Summary ---
Author Organization [employer] ([place], [place], [place], [place]) Address [address] [place] [address] Care Team Providers Care Print Manager Name Role Phone Marielos Amaral APRN Primary Care Provider Encounter Details Date Type Department Care Team (Late st Contact Info) Description 02/09/[address] [facility] [place] Family Medicine [address] [place] [address] ProviderHaroldo MD [address] [place] [address] Social History Tobacco Use Types Packs/Day Years Used Date Smoking Tobacco: Never Assessed Sex and Gender Information Value Date Recorded Sex Assigned at Not on file Legal Sex Male 3:45 PM CDT Gender Identity Not on file Sexual Orientation Not on file documented as of this encounter Miscellaneous Notes * Cerner Conversion Note - Haroldo ProviderMD - 02/09/2019 2:17 PM CDT [facility] [address] [place] [id number] DEION ANTOINE :1950 Visit Time:02/07/2019 Your Visit [...] Team Community Services: Outpatient physical therapy at [facility] phone [phone] Discharge Follow Up Instructions: Follow-Up Appointments Follow Up with YANICK WHEELER When Within 2 to 3 days Where: [address] [place], [place] [id number] [facility] (1) Medications What How Much When Instructions [...] these instructions at home: Medicines ??? Take uhed-jsi-hmuaxxx and prescription medicines only as told by [...] 09/22/2006 Document Revised: 03/04/2017 Document Reviewed: 12/18/2016 [employer] Patient Education ?? 2017 [employer] Weakness Weakness is a lack of [...] 09/04/2009 Document Revised: 03/23/2013 Document Reviewed: 07/12/2016 [employer] Patient Education ?? 2017 [employer]. amiodarone (oral) (A mi [place] john sen) [...] may report side effects to FDA at 4-961-TMA-2961. What other drugs will affect amiodarone? Sometimes [...] can affect amiodarone. This includes prescription and acpx-svf-dllxbby medicines, vitamins, and herbal products. Not all [...] to ensure that the information provided by [employer]. ('[employer]') is accurate, up-to-date, and complete, but no guarantee is made to that effect. Drug information contained herein may be time sensitive. [employer] information has been compiled for use by healthcare practitioners and consumers in the [place] and therefore [employer] does not warrant that uses outside of the [place] are appropriate, unless specifically indicated otherwise. [employer] drug information does not endorse drugs, diagnose patients or recommend therapy. [employer] drug information is an informational resource designed [...] effective or appropriate for any given patient. [employer] does not assume any responsibility for any aspect of healthcare administered with the aid of information [facility] provides. The information contained herein is not intended to cover all possible uses, directions, precautions, warnings, drug interactions, allergic reactions, or adverse effects. If you have questions about the drugs you are taking, check with your doctor, nurse or pharmacist. Copyright 0210-7537 [employer]. Version: 7.01. Revision Date: 08/11/2018.apixaban (a PIX [...] may report side effects to FDA at 9-275-KJT-1824. What other drugs will affect apixaban? Sometimes it is not safe to use certain medications at the same time. Some drugs can affect your blood levels of other drugs you take, which may increase side effects or make the medications less effective. Many other drugs (including some txbr-rgg-nycxkwf medicines) can increase your risk of bleeding [...] ?? an NSAID (nonsteroidal anti-inflammatory drug) used long wall mining machine tender. This list is not complete and many other drugs may affect apixaban. This includes prescription and kaxw-zsl-maagrjz medicines, vitamins, and herbal products. Not all [...] to ensure that the information provided by [employer]. ('[employer]') is accurate, up-to-date, and complete, but no guarantee is made to that effect. Drug information contained herein may be time sensitive. [employer] information has been compiled for use by healthcare practitioners and consumers in the [place] and therefore [employer] does not warrant that uses outside of the [place] are appropriate, unless specifically indicated otherwise. [employer]'s drug information does not endorse drugs, diagnose patients or recommend therapy. [employer] drug information is an informational resource designed [...] effective or appropriate for any given patient. [employer] does not assume any responsibility for any aspect of healthcare administered with the aid of information [employer] provides. The information contained herein is not intended to cover all possible uses, directions, precautions, warnings, drug interactions, allergic reactions, or adverse effects. If you have questions about the drugs you are taking, check with your doctor, nurse or pharmacist. Copyright 4947-7947 [employer]. Version: 3.01. Revision Date: 02/11/2018. Emergency Awareness [...] Assistance with quitting is available by contacting 6-684-HFNGNOW. This is a free resource providing counseling, [...] Be sure to sign up for the [facility] patient portal, which gives you 28/04 access to your medical information ??? including these discharge instructions ??? using your computer, smartphone, or tablet. Just go to [employer] to get started. Questions? Call . Test [...] ANC #: 5 K/uL Toxic Granulation: 1+ Vernon Percent Man: 8 % -- Normal range [...] range between ( 0.0 and 7.0 ) [place] #: 0.99 K/uL -- Normal range between ( 0.16 and 1.00 ) Eos #: 0.12 x10(3)/uL -- Normal range between ( 0.00 and 0.80 ) [place] %: 8.7 % -- Normal range between [...] ) Urine Bilirubin Dipstick: Negative Urine Specific [place]: 1.016 -- Normal range between ( 1.005 [...] was given the opportunity to ask questions. Patient/Independent Insurance Adjuster Name: Patient/Independent Insurance Adjuster Signature: Relationship to Patient: Clinician/Hospital Independent Insurance Adjuster Signature: Date: Electronically signed by Brittany, [facility] Conversion Transportation Modeler Cerner at 01/24/2023 10:27 AM CDT documented in this encounter Plan of Treatment Not on file documented as of this encounter Visit Diagnoses Not on filedocumented in this encounter Care Teams Print Manager Relationship Specialty Start Date End Date Marielos Amaral, ADDRESSER [address] [phone] PCP - General Nurse Practitioner 08/18/23 documented as of this encounter
--- OUTSIDE RECORDS SUMMARY | 2025-05-19 12:26 | XMS_ITS | Encounter Summary ---
Author Organization [employer] ([place], [place], [place], [place]) Address [address] [place] [address] Care Team Providers Care Turning Sander Operator Name Role Phone Marielos Amaral KAYE Primary Care Provider Encounter Details Date Type Department Care Team (Late st Contact Info) Description 02/08/2019 Transcribed Document [facility] [place] [address] [place] [address] ProviderHaroldo MD [address] [place] [address] Social History Tobacco Use Types Packs/Day Years [...] Cara Chaudhary RN - 02/09/2019 6:04 EDT Electronically signed by Donato Soto Conversion Outboard Motors Experimental Mechanic Cerner at 01/24/2023 10:38 AM CDT documented in this encounter Plan of Treatment Not on file documented as of this encounter Visit Diagnoses Not on filedocumented in this encounter Care Teams Turning Sander Operator Relationship Specialty Start Date End Date Marielos Amaral APRN [address] [address] PCP - General Nurse Practitioner 08/18/23 documented as of this encounter
--- OUTSIDE RECORDS SUMMARY | 2025-05-19 12:26 | XMS_ITS | Encounter Summary ---
Author Organization [employer] ([place], [place], [place], [place]) Address [address] [place] [address] Care Team Providers Care Exploration Driller Name Role Phone Marielos Amaral APRN Primary Care Provider Encounter Details Date Type Department Care Team (Late st Contact Info) Description 11/30/2020 Transcribed Document [facility] Cardiology [address] [place], [place] [id number] [place] [address] [place] [address] [address] [place] [address] Social History Tobacco Use Types Packs/Day Years [...] however, no clear reversibility to suggest ischemia. /[id number] John Salguero MD NMF/AQ / NMF / MODL /[id number] documented in this encounter Plan of Treatment Not on file documented as of this encounter Visit Diagnoses Not on filedocumented in this encounter Care Teams Exploration Driller Relationship Specialty Start Date End Date Marielos Amaral APRN [address] [place] [address] PCP - General Nurse Practitioner 08/18/23 documented as of this encounter
--- OUTSIDE RECORDS SUMMARY | 2025-05-19 12:26 | XMS_ITS | Encounter Summary ---
Author Organization [employer] ([place], [place], [place], [place]) Address [address] [place] [address] Care Team Providers Care Central Supply Aide Name Role Phone Marielos Amaral KAYE Primary Care Provider Encounter Details Date Type Department Care Team (Late st Contact Info) Description 02/08/2019 Transcribed Document [facility] [place] [address] [place] [address] ProviderHaroldo MD [address] [place] [address] Social History Tobacco Use Types Packs/Day Years [...] 02/08/2019 5:31 EDT Electronically signed by Brittany [facility] Conversion Play Leader Cerner at 01/24/2023 10:20 AM CDT documented in this encounter Plan of Treatment Not on file documented as of this encounter Visit Diagnoses Not on filedocumented in this encounter Care Teams Central Supply Aide Relationship Specialty Start Date End Date Rosette Amarale, ER MEDICAL TECHNICIAN [address] [place] [address] PCP - General Nurse Practitioner 08/18/23 documented as of this encounter
--- OUTSIDE RECORDS SUMMARY | 2025-05-19 12:26 | XMS_ITS | Encounter Summary ---
Author Organization [employer] ([place], [place], [place], [place]) Address [address] [place] [address] Care Team Providers Care Registered Nurse Hh Case Manager Name Role Phone Marielos Amaral APRN Primary Care Provider Encounter Details Date Type Department Care Team (Late st Contact Info) Description 02/09/2019 Transcribed Document [facility] Radiology [address] [id number] Fidencio Tolliver MD [address] [place] [address] [address] [place] [address] Social History Tobacco Use Types Packs/Day Years [...] risk factors. CODE STATUS: Full code CONSULTS: [place] [facility] cardiology WORKUP / PROCEDURES: CT Head WO [...] approximately 50% stenosis of theproximal basilar artery. hospitality job titles show mild stenosis proximally. IMPRESSION: 1. 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 Anterior circulation intact.3. 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 This study was performed using dose [...] with the patient, and nursing staff and onsite case manager today. Health Status Allergies: Allergic Reactions (Selected) Severity Not Documented Amoxicillin- No reactions were documented. Mucinex- No reactions were documented. Current medications: (Selected) Inpatient Medications Ordered Colace: 100 mg, Oral, BID Eliquis: 5 mg, Oral, [id number] Flomax: 0.4 mg, Oral, Daily MiraLax: 17 [...] tablet 5 mg = 1 Tab, Oral, [id number] - new per cardiology and neurology. Flomax [...] on filedocumented in this encounter Care Teams Registered Nurse Hh Case Manager Relationship Specialty Start Date End Date Marielos Amaral APRN [address] [address] PCP - General Nurse Practitioner 08/18/23 documented as of this encounter
--- OUTSIDE RECORDS SUMMARY | 2025-05-19 12:26 | XMS_ITS | Clinical Summary ---
Author Organization [facility] Address [address] [place] [address] Care Team Providers Care Process Consultant Name Role Phone Marielos Amaral KAYE Primary Care Provider [phone] Allergies No known active allergies Medications hydrALAZINE (Apresoline) 50 MG tabletIndications :Essential hypertension Take 1.5 tablets (75 mg total) by mouth 3 (three) times a day. 135 tablet 3 2 Active ergocalciferol (Drisdol) 1.25 MG (27371 UT) capsuleIndication s:Vitamin D deficiency 50,000 units [...] (2 of 2 - PCV) 02/16/2018 02/16/2017 [id number] Vaccine ( season) 2024 08/13/2022, 02/02/2021, 01/02/2021 [...] patient's age to complete this topic Insurance [facility] MEDICARE Care Teams Process Consultant Relationship Specialty Start Date End Date Marielos Amaral, KAYE [address] [place] [address] PCP - General 03/26/22
--- OUTSIDE RECORDS SUMMARY | 2025-05-19 12:26 | XMS_ITS | Encounter Summary ---
Author Organization [employer] ([place], [place], [place], [place]) Address [address] [place] [address] Care Team Providers Care Powder Compounder Name Role Phone Munir Marielos RESTREPO Primary Care Provider Encounter Details Date Type Department Care Team (Late st Contact Info) Description 04/22/2022 Transcribed Document [facility] [place] [address] [place] [address] ProviderHaroldo MD [address] [place] [address] Social History Tobacco Use Types [...] speak a language other than Mauritian at [facility]? Yes 10/30/2024 Do you want [...] head, neck, ot back pain. Jose M, portable power tool repairer. . History of Present Illness The patient [...] - Coronary artery bypass grafts x 4 ([id number]) on 02/10/2017 at 66 Years. Cardiac catheterization. hernia repair. Tonsillectomy. Cholecystectomy; (69655). Appendectomy. left arm surgery. Coronary stents. EGD - Esophagogastroduodenoscopy ([id number]). Comments: 04/12/2020 7:04 Roxana Grover RN with [...] EDT Height Source Stated Height Entry Format [place] Height/Length, BRITISH (ft) 5 ft Height/Length BRITISH 9 Inch CLINICALHEIGHT 175.26 cm [place] Body Weight 69.73 kg Weight Source, ED Critical estimated dosing weight Weight Entry Format [place] Weight Mauritian lb 187 lb CLINICALWEIGHT 85 kg Body [...] % LOW Lymph # 0.74 x10(3)/uL LOW [place]atte % 10.0 % HI [place] # 0.76 K/uL Eos % 0.3 % Eos # 0.02 x10(3)/uL Baso % 0.3 % Baso # 0.02 x10(3)/uL Slide Review No IG# 0.07 x10(3)/uL HI IG% 0.90 % HI . Radiology results: Radiology Results (Last 48 hours) [id number] -- 04/22/2022 09:14 CR Chest 1 Vw [...] both correctly = 0. Open and close eyes/jewelry model maker release hand: Obeys both correctly = 0. [...] 12:27:00 , KAYLIN ARANGO MD-[facility], paged Dr. Arango. 1230: Dr Arango is not weatherization field technician. Call Dr. Umana. - 04/22/2022 12:32:00 , PARAM UMANA MD, phone call, Dong paged.. Plan Condition: Stable. Disposition: Admit Consults: Consult to Physician (Order): Start: 04/22/2022 12:28 EDT, Routine, Consult to: PARAM UMANA MD, For ARF, Visitor Services Coordinator Notified by Physician, Group/Instructions: Pt being admitted [...] plan.. Notes: I certify that the physician housekeeper and laundry assistant performed the services as delegated. This note has been prepared with the use of voice recognition software and may contain sound alike errors and omissions.. documented in this encounter Plan of Treatment Not on file documented as of this encounter Visit Diagnoses Not on filedocumented in this encounter Care Teams Powder Compounder Relationship Specialty Start Date End Date Marielos Amaral, FLUX PLANT OPERATOR [address] [id number] PCP - General Nurse Practitioner 08/18/23 documented as of this encounter
--- OUTSIDE RECORDS SUMMARY | 2025-05-19 12:26 | XMS_ITS | Encounter Summary ---
Author Organization [employer] ([place], [place], [place], [place]) Address [address] [place] [address] Care Team Providers Care Wood Grainer Name Role Phone Marielos Amaral KAYE Primary Care Provider [phone] Encounter Details Date Type Department Care Team (Late st Contact Info) Description 02/09/2019 Transcribed Document [facility] [place] [address] ProviderHaroldo MD [address] [place] [address] Social History Tobacco Use Types Packs/Day Years [...] these instructions at home: Medicines ??? Take nwwy-scy-chbioxm and prescription medicines only as told by [...] 09/22/2006 Document Revised: 03/04/2017 Document Reviewed: 12/18/2016 [facility] Interactive Patient Education ? 2017 [facility] [employer] Weakness Weakness is a lack of [...] 09/04/2009 Document Revised: 03/23/2013 Document Reviewed: 07/12/2016 [employer] Interactive Patient Education ? 2017 [facility] documented in this encounter Plan of Treatment Not on file documented as of this encounter Visit Diagnoses Not on filedocumented in this encounter Care Teams Wood Grainer Relationship Specialty Start Date End Date Marielos Amaral, KAYE [address] [address] PCP - General Nurse Practitioner 08/18/23 documented as of this encounter
--- OUTSIDE RECORDS SUMMARY | 2025-05-19 12:26 | XMS_ITS | Encounter Summary ---
Author Organization [employer] ([place], [place], [place], [place]) Address [address] [place] [address] Care Team Providers Care Boiler Inspector Name Role Phone Munir Marielos RESTREPO Primary Care Provider Encounter Details Date Type Department Care Team (Late st Contact Info) Description 04/22/2022 Transcribed Document [facility] [place] [facility] [place] [address] [place] [address] ProviderHaroldo MD [address] [place] [address] Social History Tobacco Use Types [...] speak a language other than Swazi at [facility]? Yes 10/30/2024 Do you [...] Renal ultrasound - No emergent need of CARD HAND. Will follow. Thank you very much for the consult. Will follow along. [id number] Electronically signed by Brittany [facility] Conversion Lunch Truck Driver Pennyner at 01/24/2023 10:25 AM CDT documented in this encounter Plan of Treatment Not on file documented as of this encounter Visit Diagnoses Not on filedocumented in this encounter Care Teams Boiler Inspector Relationship Specialty Start Date End Date Marielos Amaral, SWAGE TOOLSETTER [address] [address] PCP - General Nurse Practitioner 08/18/23 documented as of this encounter
--- OUTSIDE RECORDS SUMMARY | 2025-05-19 12:26 | XMS_ITS | Encounter Summary ---
Author Organization [employer] ([place], [place], [place], [place]) Address [address] [place] [address] Care Team Providers Care Galley Boy Name Role Phone Marielos Amaral KAYE Primary Care Provider Encounter Details Date Type Department Care Team (Late st Contact Info) Description 12/12/2020 Transcribed Document [facility] [place] [address] [place] [address] ProviderHaroldo MD [address] [place] [address] Social History Tobacco Use Types Packs/Day Years Used Date Smoking Tobacco: Never Assessed Sex and Gender Information Value Date Recorded Sex Assigned at Not on file Legal Sex Male 3:45 PM CDT Gender Identity Not on file Sexual Orientation Not on file documented as of this encounter Miscellaneous Notes * [employer]ner Conversion Note - Historical ProviderMD - 12/12/2020 9:16 AM MACHINE FINISHER Pre Procedure Adult Entered On: 12/12/2020 9:22 EST Performed On: 12/12/2020 9:16 EST by Marielle Ward RN Height and Weight, Clinical Dosing Height Source : Stated Height Entry Format : [place] Height, Feet : 5 ft(Converted to: 152 cm, 60 Inch) Height, Inches : 9 Inch(Converted to: 0 ft 9 Inch, 22.86 cm) Clinical Height : 175.26 cm Weight Source : Standing scale Weight Entry Format : [place] Clinical Dosing Weight : 89.55 kg Weight, Pounds : 197 lb Body Surface Area (BSA) : 2.05 m2 Body Mass Index : 29.2 kg/m2 ([place]) [place] Body Weight : 70 kg Marielle Ward [...] Marielle Ward RN - 12/12/2020 9:16 EST [place] Suicide Severity Rating Scale (C-SSRS) CSSRS Past [...] Clint Legal Guardian : No Support Person/Patient Supervisor Paste Mixing : Yes Support Person/Pt Rep Name : Enriqueta - Contact Password : melanie Support Person/Pt Rep Contact Information : [phone], cell Want Family/Rep/Phys Notified of Admit : No Emergency Contact #1 : na Emergency Contact #1 Phone Number : nan Emergency Contact #1 Relationship : na Emergency Contact #2 : na Emergency Contact #2 Phone Number : na Emergency Contact #2 Relationship : na Primary Language : Northern Irish Preferred Communication Mode : Verbal Communication Barrier : None Supervisor Production Managing Needed : No Marielle Ward RN - [...] Scale Risk Level : 0-24 Low Risk [place] Fall Interventions : Adequate lighting, Assistive devices [...] on filedocumented in this encounter Care Teams Galley Boy Relationship Specialty Start Date End Date Marielos Amaral, INJURY PREVENTION COORDINATOR [address] [place] [address] PCP - General Nurse Practitioner 08/18/23 documented as of this encounter
--- OUTSIDE RECORDS SUMMARY | 2025-05-19 12:26 | XMS_ITS | Encounter Summary ---
Author Organization [employer] ([place], [place], [place], [place]) Address [address] [place] [address] Care Team Providers Care Web Operations Specialist Name Role Phone Munir Marielos RESTREPO Primary Care Provider Encounter Details Date Type Department Care Team (Late st Contact Info) Description 04/22/2022 Transcribed Document [facility] [place] Family Medicine [address] [place] [address] ProviderHaroldo MD [address] [place] [address] Social History Tobacco Use Types [...] Do you speak a language other than Ethiopian at [facility]? Yes 10/30/2024 Do you want help [...] on filedocumented in this encounter Care Teams Web Operations Specialist Relationship Specialty Start Date End Date Marielos Amaral, COMMUNICATIONS COORDINATOR [address] [place] [address] PCP - General Nurse Practitioner 08/18/23 documented as of this encounter
--- OUTSIDE RECORDS SUMMARY | 2025-05-19 12:27 | XMS_ITS | Encounter Summary ---
Author Organization [employer] ([place], [place], [place], [place]) Address [address] [place] [address] Care Team Providers Care Android Framework Developer Name Role Phone Munir Marielos RESTREPO Primary Care Provider Encounter Details Date Type Department Care Team (Late st Contact Info) Description 04/29/2022 Transcribed Document [facility] [place] [address] [place] [address] ProviderHaroldo MD [address] [place] [address] Social History Tobacco Use Types [...] Do you speak a language other than Guatemalan at [facility]? Yes 10/30/2024 Do [...] Health Plan: [employer] MEDICARE REPL Policy Number: [id number] Authorization Number: Insurance Primary Name : [employer] MEDICARE REPL Policy Number: [id number] Authorization Status-Primary : Awaiting callback Auth/Referral Contact Name-Primary : DC Reference Number-Primary : [id number] Authorized Service Begin Date-Primary : 04/22/2022 EDT Authorization Comments-Primary : Remains pending per [employer]. Historical Authorization Comments-Primary : Comment 1: Discharge summary as well as continued stay clinical 04/24 - discharge faxed. (Kari Chaudhary, Sanitary Inspector 04/29/2022 14:17) Comment 2: Request for inpt auth submitted via [email or web address] Ref# [id number] received;clinicals attached. (Radha Dillon RN 04/23/2022 18:56) Vanessa Pimentel SUPV-QUALITY - 04/29/2022 14:55 EDT documented in this encounter Plan of Treatment Not on file documented as of this encounter Visit Diagnoses Not on filedocumented in this encounter Care Teams Android Framework Developer Relationship Specialty Start Date End Date Marielos Amaral, APPLICATIONS SYSTEM ANALYST [address] [address] PCP - General Nurse Practitioner 08/18/23 documented as of this encounter
--- OUTSIDE RECORDS SUMMARY | 2025-05-19 12:27 | XMS_ITS | Encounter Summary ---
Author Organization [employer] ([place], [place], [place], [place]) Address [address] [place] [address] Care Team Providers Care Mophead Trimmer And Wrapper Name Role Phone Marielos Amaral KAYE Primary Care Provider Encounter Details Date Type Department Care Team (Late st Contact Info) Description 02/08/2019 Transcribed Document [facility] [place] Family Medicine [address] [place] [address] ProviderHaroldo MD [address] [place] [address] Social History Tobacco Use Types Packs/Day Years [...] On: 02/08/2019 11:45 EDT by GERALDINE BROWN, RN-Vp Informatics Initial Assessment I Previously Documented Living Environment [...] Listed? : Yes Medical Durable Power of Associate Application Developer Name : No Legal Guardian : No Is Guardianship Needed : No GERALDINE BROWN RN-Vp Informatics - 02/08/2019 11:45 EDT Initial Assessment II Sensory and Motor Deficits : None Current Home Treatments and Equipment : Bedside commode, Cane, CPAP, Shower chair, Walker Does the Patient have a Floor to SNF Benefit? : Yes GERALDINE BROWN RN-Vp Informatics - 02/08/2019 11:45 EDT Discharge Needs I Anticipated Discharge Date : 02/09/2019 EDT Anticipated Discharge To, CM : Other: outpatient physical therapy at [facility] Current Home Treatment/Equipment : Current Home Treatment/Equipment No qualifying data available. Post Acute/Home Treatments : None GERALDINE BROWN RN-Vp Informatics - 02/08/2019 11:45 EDT Discharge Needs II Professional Skilled Services : Professional Skilled Services No qualifying data available. Services and Community Resources : Physical Therapy Needs Assistance with Transportation : No Discharge Options Discussed with Patient : Outpatient services, Short term rehabilitation GERALDINE BROWN RN-Vp Informatics - 02/08/2019 11:45 EDT Narrative Note Narrative Note : Met with pt and his . Pt states that he lives with his . He states that he has lots of equipement at home but does not use it currently. He states that he has a CPAP but is not currently wearing it due to a place on his head. He states that the [employer] is trying different masks to find one that will work. Discussed discharge plan with pt and his . Pt and request outpatient PT at [facility] in [place]. Pt's states that is where she currently goes and she would like pt to go as well. She wants to schedule pt's first appointment. Pt and deny any other discharge needs at this time. GERALDINE BROWN RN-Vp Informatics - 02/08/2019 11:45 EDT documented in this encounter Plan of Treatment Not on file documented as of this encounter Visit Diagnoses Not on filedocumented in this encounter Care Teams Mophead Trimmer And Wrapper Relationship Specialty Start Date End Date Marielos Amaral APRN [address] [address] PCP - General Nurse Practitioner 08/18/23 documented as of this encounter
--- OUTSIDE RECORDS SUMMARY | 2025-05-19 12:27 | XMS_ITS | Clinical Summary ---
Author Organization [employer] ([place], [place], [place], [place]) Address [address] [place] [address] Care Team Providers Care Director Of Assessment Name Role Phone AmaralMarielos roque KAYE Primary [...] Immunizations Name Administration Dates Next Due INFLUENZA(FLUCELVAX)_0.5 mL(6MOS+)TRI([id number]) Social History Tobacco Use Types Packs/Day Years [...] Do you speak a language other than Gabonese at [facility]? Yes 10/30/2024 [...] Nonreactive Nonreactive, Equivocal 09/15/2024 4:51 PM EST [facility] Hep B C IgM Nonreactive Nonreactive 09/15/2024 4:51 PM EST [facility] Hepatitis B surface antigen Nonreactive Nonreactive, Equivocal 09/15/2024 4:51 PM EST [facility] Hepatitis C Ab Nonreactive Nonreactive, Equivocal 09/15/2024 4:51 PM EST [facility] Blood Venipuncture / Unknown 09/15/2024 2:53 PM EST 09/15/2024 3:10 PM EST [facility] - 09/15/2024 4:51 PM EST [...] MD LAB BLOOD ORDERABLES Final Re sult [facility] [address] [id number] [phone] from Last 3 Months or Most Recently Relevant to Health Maintenance Insurance [employer] ACCESS O MAP Advance Directives For more information, please contact: [phone] * Full Code (Latest Code Status on [...] Enriqueta Toy Spouse Healthcare Decision-Maker Care Teams Director Of Assessment Relationship Specialty Start Date End Date AmaralMarielos, CIGARETTE FILTER INSPECTOR [address] [place] [address] PCP - General Nurse Practitioner 08/18/23
--- OUTSIDE RECORDS SUMMARY | 2025-05-19 12:27 | XMS_ITS | Encounter Summary ---
Author Organization [employer] ([place], [place], [place], [place]) Address [address] [place] [address] Care Team Providers Care Manager Transfusion Name Role Phone Marielos Amaral KAYE Primary Care Provider Encounter Details Date Type Department Care Team (Late st Contact Info) Description 02/06/2019 Transcribed Document [facility] [place] Family Medicine [address] [place] [address] ProviderHaroldo MD [address] [place] [address] Social History Tobacco Use Types Packs/Day Years [...] filedocumented in this encounter Care Teams Manager Transfusion Relationship Specialty Start Date End Date Amaral, Marielos, MAINTENANCE REPAIRMAN [address] [place] [address] PCP - General Nurse Practitioner 08/18/23 documented as of this encounter
--- OUTSIDE RECORDS SUMMARY | 2025-05-19 12:27 | XMS_ITS | Encounter Summary ---
Author Organization [employer] ([place], [place], [place], [place]) Address [address] [place] [address] Care Team Providers Care Bonus Clerk Name Role Phone Marielos Amaral APRN Primary Care Provider Encounter Details Date Type Department Care Team (Late st Contact Info) Description 02/07/2019 Transcribed Document [facility] [place] Family Medicine [address] [place] [address] ProviderHaroldo MD [address] [place] [address] Social History Tobacco Use Types Packs/Day Years [...] Plan: [employer] GOLD PLUS HMO Policy Number: [id number] Authorization Number: PENDING IP Insurance Primary Name : [employer] Choice Authorization Status-Primary : Awaiting callback Authorized Service Begin Date-Primary : 02/05/2019 EDT Authorization Comments-Primary : setup case for IP on [employer]. faxed clinicals via [employer]. Historical Authorization Comments-Primary : Comment 1: setup on [employer]ity obs approved. (GEGE JUÁREZ RN 02/06/2019 08:52) GEGE JUÁREZ RN - 02/07/2019 11:56 EDT Electronically signed by Brittany [facility] Conversion Card Services Specialist Cerner at 01/24/2023 10:27 AM CDT documented in this encounter Plan of Treatment Not on file documented as of this encounter Visit Diagnoses Not on filedocumented in this encounter Care Teams Bonus Clerk Relationship Specialty Start Date End Date Marielos Amaral, TRAINING DEVELOPMENT SPECIALIST [address] [id number] PCP - General Nurse Practitioner 08/18/23 documented as of this encounter
--- OUTSIDE RECORDS SUMMARY | 2025-05-19 12:27 | XMS_ITS | Encounter Summary ---
Author Organization [employer] ([place], [place], [place], [place]) Address [address] [place] [address] Care Team Providers Care Cooler Room Worker Name Role Phone AmaralMarielos KAYE Primary Care Provider [phone] Encounter Details Date Type Department Care Team (Late st Contact Info) Description 11/01/2020 Transcribed Document [facility] [place] Medicine [address] [place] [address] ProviderHaroldo MD [address] [place], [place] [address] Social History Tobacco Use Types Packs/Day Years Used Date Smoking Tobacco: Never Assessed Sex and Gender Information Value Date Recorded Sex Assigned at Not on file Legal Sex Male 3:45 PM CDT Gender Identity Not on file Sexual Orientation Not on file documented as of this encounter Miscellaneous Notes * [employer]ner Conversion Note - Historical ProviderMD - 11/01/2020 8:30 PM BOOK JACKET COVER MACHINE OPERATOR CR Chest 1 Vw Portable Ordered: 10/31/2020 Modified Reason for Exam: SOA 11/01/2020 08:09 11/01/2020 20:30 (ANABELA FRENCH PA) Reviewed by Provider, No further action required X1 - Noted/treated 11/01/2020 11:31 (ANISA CRAVEN) Provider Review Required documented in this encounter Plan of Treatment Not on file documented as of this encounter Visit Diagnoses Not on filedocumented in this encounter Care Teams Cooler Room Worker Relationship Specialty Start Date End Date Marielos Amaral, WHEEL ROLLER [address] [place] [address] PCP - General Nurse Practitioner 08/18/23 documented as of this encounter
--- OUTSIDE RECORDS SUMMARY | 2025-05-19 12:27 | XMS_ITS | Encounter Summary ---
Author Organization [employer] ([place], [place], [place], [place]) Address [address] [place] [address] Care Team Providers Care Ladle Repairman Name Role Phone Munir Marielos RESTREPO Primary Care Provider Encounter Details Date Type Department Care Team (Late st Contact Info) Description 04/26/2022 Transcribed Document [facility] [place] Family Medicine [address] [place] [address] ProviderHaroldo MD [address] [place] [address] Social History Tobacco Use Types [...] harm? Never 10/30/2024 How often does anyone, zehar harvey family and friends, scream or curse [...] Do you speak a language other than Guyanese at [facility]? Yes 10/30/2024 Do [...] On: 04/26/2022 12:07 EDT by Zuly Gandara Rn-Edge Brusher Final Discharge Planning Discharge Arrangements : Patient Post-Acute Information Patient Name: ZACKARY ANTOINE Gender: Male : [birth year] Age: 71 Years No Post-Acute Placement(s) Listed No Post-Acute Service(s) Listed No Curaspan Referral(s) Listed Discharge To Care Management : Home/Residential/Half-Way or Self Care - Zuly Gandara Rn-Edge Brusher - 05/01/2022 12:07 EDT Final Narrative Note Final Narrative Note : DISPOSITION: Home without home health due to lack of coverage in patient's area. CM utilized [facility] Home Health's resources/assistance in attempting to place patient, and ultimately all possible agencies declined and the patient was not able to receive services. Agencies who declined include : [facility], [place], [facility], [facility], [facility], [facility], [facility] and Nurse On-Call. Zuly Gandara Rn-Edge Brusher - 05/01/2022 12:07 EDT Electronically signed by Renetta Soto Conversion Blow Moulding Machine Operator Cerner at 01/24/2023 10:18 AM CDT documented in this encounter Plan of Treatment Not on file documented as of this encounter Visit Diagnoses Not on filedocumented in this encounter Care Teams Ladle Repairman Relationship Specialty Start Date End Date Marielos Amaral APRN [address] [phone] PCP - General Nurse Practitioner 08/18/23 documented as of this encounter
--- OUTSIDE RECORDS SUMMARY | 2025-05-19 12:27 | XMS_ITS | Encounter Summary ---
Author Organization [employer] ([place], [place], [place], [place]) Address [address] [place] [address] Care Team Providers Care Other Sales Support Worker Name Role Phone Marielos Amaral APRN Primary Care Provider Encounter Details Date Type Department Care Team (Late st Contact Info) Description 02/07/2019 Transcribed Document [facility] Radiology [address] [id number] Fidencio Tolliver MD [address] [place] [address] [address] [place] [address] Social History Tobacco Use Types Packs/Day [...] risk factors. CODE STATUS: Full code CONSULTS: [place] [facility] WORKUP / PROCEDURES: CT Head WO [...] approximately 50% stenosis of theproximal basilar artery. data reporting analyst show mild stenosis proximally. IMPRESSION: 1. 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 Anterior circulation intact.3. 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 This study was performed using [...] mg, Oral, BID Eliquis: 5 mg, Oral, [id number] Flomax: 0.4 mg, Oral, Daily MiraLax: 17 [...] Results Review Radiology Results (Last 48 hours) [id number] -- 02/05/2019 23:59 CT Head WO (02/05/2019 [...] approximately 50% stenosis of theproximal basilar artery. data reporting analyst show mild stenosis proximally. IMPRESSION: 1. 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 Anterior circulation intact.3. 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 This study was performed using [...] looking for possible rehabilitation placement will consult child support case officer. Follow with neurology and cardiology recommendations. documented in this encounter Plan of Treatment Not on file documented as of this encounter Visit Diagnoses Not on filedocumented in this encounter Care Teams Other Sales Support Worker Relationship Specialty Start Date End Date Marielos Amaral, SUGARCANE PLANTER [address] [address] PCP - General Nurse Practitioner 08/18/23 documented as of this encounter
--- OUTSIDE RECORDS SUMMARY | 2025-05-19 12:27 | XMS_ITS | Encounter Summary ---
Author Organization [employer] ([place], [place], [place], [place]) Address [address] [place] [address] Care Team Providers Care Primary School Teacher Librarian Name Role Phone Marielos Amaral KAYE Primary Care Provider Encounter Details Date Type Department Care Team (Late st Contact Info) Description 02/06/2019 Transcribed Document [facility] [place] Family Medicine [address] [place] [address] ProviderHaroldo MD [address] [place] [address] Social History Tobacco Use Types Packs/Day Years [...] SANDI SERRANO OTR/Melvin - 02/08/2019 14:53 EDT Plastics Engineering Teacher Goals, OT Grooming LTG Grid Goal #1 [...] SANDI SERRANO OTR/L - 02/08/2019 14:53 EDT Literberry OT Charges OT Ther Activities Ea 15 Min : 1 OT Eval Low Complexity : 1 SANDI SERRANO OTR/L - 02/08/2019 14:53 EDT documented in this encounter Plan of Treatment Not on file documented as of this encounter Visit Diagnoses Not on filedocumented in this encounter Care Teams Primary School Teacher Librarian Relationship Specialty Start Date End Date Marielos Amaral, MANAGER PRIMARY [address] [address] PCP - General Nurse Practitioner 08/18/23 documented as of this encounter
--- OUTSIDE RECORDS SUMMARY | 2025-05-19 12:27 | XMS_ITS | Encounter Summary ---
Author Organization [employer] ([place], [place], [place], [place]) Address [address] [place] [address] Care Team Providers Care Receptionist/Telephone Operator Name Role Phone Marielos Amaral KAYE Primary Care Provider Encounter Details Date Type Department Care Team (Late st Contact Info) Description 02/06/2019 Transcribed Document [facility] [place] [address] [place] [address] ProviderHaroldo MD [address] [place] [address] Social History Tobacco Use Types Packs/Day Years [...] on filedocumented in this encounter Care Teams Receptionist/Telephone Operator Relationship Specialty Start Date End Date Marielos Amaral, GLASSWARE VERIFIER [address] [address] PCP - General Nurse Practitioner 08/18/23 documented as of this encounter
--- OUTSIDE RECORDS SUMMARY | 2025-05-19 12:27 | XMS_ITS | Encounter Summary ---
Author Organization [employer] ([place], [place], [place], [place]) Address [address] [place] [address] Care Team Providers Care Commissions Analyst Name Role Phone Munir Marielos RESTREPO Primary Care Provider Encounter Details Date Type Department Care Team (Late st Contact Info) Description 04/26/2022 Transcribed Document [facility] [address] [place] [address] ProviderHaroldo MD [address] [place] [address] Social History Tobacco Use Types [...] a language other than [place] Konger at [facility]? Yes 10/30/2024 [...] On: 04/26/2022 14:23 EDT by LEXX LOWRY, RN-Special Warfare Boat OperatorCounty Program Technician Progress Note Discharge Arrangements : Patient Post-Acute Information Patient Name: ZACKARY ANTOINE Gender: Male : [birth year] Age: 71 Years No Post-Acute Placement(s) Listed No Post-Acute Service(s) Listed No Curaspan Referral(s) Listed Discharge Options Discussed with Patient : DME, Home Health Barriers to Discharge Identified : None identified Barriers to Discharge Unresolved : All resolved Patient Discharge Goal : Home [facility] Quality Web Info Shared w Pt/Fam : No Does the Patient have a Floor to SNF Benefit? : No Is the Patient Meeting Medical Necessity : Yes Physician Agreeable to Move Forward with D/C Plan? : No Did you Attend Multidisciplinary Rounds? : Yes LEXX LOWRY RN-Special Warfare Boat Operator - 04/26/2022 14:23 EDT Narrative Progress Note Narrative Progress Note : Met with pt and . Do not have home health preference. Per [facility], do not serve area at this time and will assist in establishing a home health for pt in [facility]. Deny need for equipment. States glucometer is old . Order for new one sent to pharmacy per Dr. Gross. manager of security to see prior to dc. 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 CM attempted to meet with pt this evening for CM eval, but pt sleeping soundly. CM will need to f/u with pt for full CM eval and send referrals as appropriate, as pt will likely benefit from HH vs inpt rehab. TYSHAWN RIGGINS, RN-Special Warfare Boat Operator ED - 04/23/22 23:38:53 LEXX LOWRY, RN-Special Warfare Boat Operator - 04/26/2022 14:23 EDT documented in this encounter Plan of Treatment Not on file documented as of this encounter Visit Diagnoses Not on filedocumented in this encounter Care Teams Commissions Analyst Relationship Specialty Start Date End Date Marielos Amaral APRN [address] [address] PCP - General Nurse Practitioner 08/18/23 documented as of this encounter
--- OUTSIDE RECORDS SUMMARY | 2025-05-19 12:27 | XMS_ITS | Encounter Summary ---
Author Organization [employer] ([place], [place], [place], [place]) Address [address] [place] [address] Care Team Providers Care Line Patroller Name Role Phone AmaralMarielos KAYE Primary Care Provider [phone] Encounter Details Date Type Department Care Team (Late st Contact Info) Description 11/01/2020 Transcribed Document [facility] [place] Family Medicine [address] [place] [address] ProviderHaroldo MD [address] [place] [address] Social History Tobacco Use Types Packs/Day Years Used Date Smoking Tobacco: Never Assessed Sex and Gender Information Value Date Recorded Sex Assigned at Not on file Legal Sex Male 3:45 PM CDT Gender Identity Not on file Sexual Orientation Not on file documented as of this encounter Miscellaneous Notes * Cerner Conversion Note - Haroldo ProviderMD - 11/01/2020 1:58 AM SEPHORA OPERATIONS CONSULTANT [facility] [place] [address] ZACKARY ANTOINE JOYCE :1950 Visit Time:10/31/2020 [...] Within 2 to 3 days Where: [address] [facility] [address] [place] [address] Business (1) Follow Up with KATELYN MCKEON When Within 2 to 3 days Where: [address] [place] [address] [facility] (1) Allergies Mucinex amoxicillin Immunizations This Visit No Immunizations Found Medications What How Much When Instructions Next Dose bumetanide (bumetanide 1 mg oral tablet) 1 Tablet(s) Oral Every Day Duration: 7 Day(s) Pickup at Count Includes [facility] 493 acetaminophen (Tylenol 325 mg oral [...] 1 Capsule(s) Oral Every Day Pharmacy Information [facility] 493: [phone] [phone] The home medications listed are only as [...] range between ( 0.0 and 7.0 ) [place] #: 0.92 K/uL -- Normal range between ( 0.16 and 1.00 ) Eos #: 0.21 x10(3)/uL -- Normal range between ( 0.00 and 0.80 ) [place] %: 9.7 % -- Normal range between [...] these instructions at home: Medicines ??? Take bskj-dbu-vemvidm and prescription medicines only as told by your health care provider. ??? Do not stop taking your medicines or change the amount you take. If you are having problems or side effects from your medicines, talk to your health care provider. ??? If you are having difficulty paying for your medicines, contact a social psychologist or your clinic. There are many programs [...] Assistance with quitting is available by contacting 0-923-CKAYNOW. This is a free resource providing counseling, support, and referral. Or you may contact your personal physician. [employer] Suicide Prevention Lifeline: The National Suicide Prevention [...] was given the opportunity to ask questions. Patient/Ic Designer Custom Name: Patient/Ic Designer Custom Signature: Relationship to Patient: Clinician/Hospital Ic Designer Custom Signature: Please Provide a Telephone Number Where You Can Be Reached: Is it Permissible To Leave a Message? Date: documented in this encounter Plan of Treatment Not on file documented as of this encounter Visit Diagnoses Not on filedocumented in this encounter Care Teams Line Patroller Relationship Specialty Start Date End Date Marielos Amaral APRN [address] [address] PCP - General Nurse Practitioner 08/18/23 documented as of this encounter
--- OUTSIDE RECORDS SUMMARY | 2025-05-19 12:27 | XMS_ITS | Encounter Summary ---
Author Organization [employer] ([place], [place], [place], [place]) Address [address] [place] [address] Care Team Providers Care Speech Correction Consultant Name Role Phone Marielos Amaral KAYE Primary Care Provider Encounter Details Date Type Department Care Team (Late st Contact Info) Description 02/07/2019 Transcribed Document [facility] [place] [address] [place] [address] ProviderHaroldo MD [address] [place] [address] Social History Tobacco Use Types Packs/Day Years [...] on filedocumented in this encounter Care Teams Speech Correction Consultant Relationship Specialty Start Date End Date Amaral, Marielos, OYSTER UNLOADER [address] [place] [address] PCP - General Nurse Practitioner 08/18/23 documented as of this encounter
--- OUTSIDE RECORDS SUMMARY | 2025-05-19 12:27 | XMS_ITS | Encounter Summary ---
Author Organization [employer] ([place], [place], [place], [place]) Address [address] [place] [address] Care Team Providers Care Table Games Dual Rate Supervisor Name Role Phone Marielos Amaral KAYE Primary Care Provider [phone] Encounter Details Date Type Department Care Team (Late st Contact Info) Description 02/06/2019 Transcribed Document [facility] [place] [facility] [place] [address] ProviderHaroldo MD [address] [place] [address] Social History Tobacco Use Types Packs/Day Years [...] to right arm and loss of balance sea captain strength equal bilaterally decreased sensation to right [...] cerebellar signs. Radiology Results (Last 48 hours) [id number] -- 02/05/2019 23:59 CT Head WO (02/05/2019 [...] approximately 50% stenosis of theproximal basilar artery. installation and service technician show mild stenosis proximally. IMPRESSION: 1. 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 Anterior circulation intact.3. Mild bilateral PATIENT SERVICES MANAGER disease. 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 at [facility] main Recommendations: (i) Cardiology input for considering [...] Lymph # 2.34 x10(3)/uL 02/05/2019 21:52 EDT [place] % 8.7 % 02/05/2019 21:52 EDT [place] # 0.99 K/uL 02/05/2019 21:52 EDT Eos [...] Appearance CLEAR2 02/05/2019 23:59 EDT Urine Specific [place] 1.016 02/05/2019 23:59 EDT Urine pH Dipstick [...] 02/05/2019 21:52 EDT Electronically signed by Brittany [facility] Conversion Hook And Eye Machine Operator Cerner at 01/24/2023 10:30 AM CDT documented in this encounter Plan of Treatment Not on file documented as of this encounter Visit Diagnoses Not on filedocumented in this encounter Care Teams Table Games Dual Rate Supervisor Relationship Specialty Start Date End Date Amaral Marielos, MANAGER METROLOGY [address] [address] PCP - General Nurse Practitioner 08/18/23 documented as of this encounter
--- OUTSIDE RECORDS SUMMARY | 2025-05-19 12:27 | XMS_ITS | Encounter Summary ---
Author Organization [employer] ([place], [place], [place], [place]) Address [address] [place] [address] Care Team Providers Care Senior Sql Dba Name Role Phone Munir Brii RESTREPO Primary Care Provider Encounter Details Date Type Department Care Team (Late st Contact Info) Description 04/26/2022 Transcribed Document [facility] [place] Family Medicine [address] [place] [address] ProviderHaroldo MD [address] [place] [address] Social History Tobacco Use Types [...] Do you speak a language other than Bolivian at [facility]? Yes 10/30/2024 Do you want help with [...] filedocumented in this encounter Care Teams Senior Sql Dba Relationship Specialty Start Date End Date Brii Amaral APRN [address] [address] PCP - General Nurse Practitioner 08/18/23 documented as of this encounter
--- OUTSIDE RECORDS SUMMARY | 2025-05-19 12:27 | XMS_ITS | Encounter Summary ---
Author Organization [employer] ([place], [place], [place], [place]) Address [address] [place] [address] Care Team Providers Care Sales Director Name Role Phone Marielos Amaral KAYE Primary Care Provider Encounter Details Date Type Department Care Team (Late st Contact Info) Description 02/08/2019 Transcribed Document [facility] [place] Family Medicine [address] [place] [address] ProviderHaroldo MD [address] [place] [address] Social History Tobacco Use Types Packs/Day Years [...] filedocumented in this encounter Care Teams Sales Director Relationship Specialty Start Date End Date Amaral, Marielos, WHEEL LOADER OPERATOR [address] [place] [address] PCP - General Nurse Practitioner 08/18/23 documented as of this encounter
--- OUTSIDE RECORDS SUMMARY | 2025-05-19 12:27 | XMS_ITS | Encounter Summary ---
Author Organization [employer] ([place], [place], [place], [place]) Address [address] [place] [address] Care Team Providers Care Supervisor Transferring And Boxing Name Role Phone Marielos Amaral KAYE Primary Care Provider Encounter Details Date Type Department Care Team (Late st Contact Info) Description 02/06/2019 Transcribed Document [facility] [place] Family Medicine [address] [place] [address] ProviderHaroldo MD [address] [place] [address] Social History Tobacco Use Types Packs/Day Years [...] 02/06/2019 8:02 EDT Electronically signed by Brittany [facility] Conversion Glove Boarder Kodak at 01/24/2023 10:45 AM CDT documented in this encounter Plan of Treatment Not on file documented as of this encounter Visit Diagnoses Not on filedocumented in this encounter Care Teams Supervisor Transferring And Boxing Relationship Specialty Start Date End Date Marielos Amaral, RECORDS AND INFORMATION MANAGER [address] [place] [address] PCP - General Nurse Practitioner 08/18/23 documented as of this encounter
--- OUTSIDE RECORDS SUMMARY | 2025-05-19 12:27 | XMS_ITS ---
Laboratory report Created on: May 17, 2025 DEION ANTOINE : 1950 Sex: Male Author Organization Unknown PROBLEMS Problems List Code Description RESULTS Laboratory Orders Date Order Code Test 2025-05-13 350916 TRIIODOTHYRONINE (T3), FREE Laboratory Results Date LOINC Test Value Unit Reference Range Interpre tation 2025-05-13 3051-0 TRIIODOTHYRONINE (T3), FREE 1.7 PG/ML 2.0-4.4 L
--- OUTSIDE RECORDS SUMMARY | 2025-05-19 12:27 | XMS_ITS | Encounter Summary ---
Author Organization [employer] ([place], [place], [place], [place]) Address [address] [place] [address] Care Team Providers Care Video Production Coordinator Name Role Phone Munir Brii RESTREPO Primary Care Provider Encounter Details Date Type Department Care Team (Late st Contact Info) Description 04/26/[address] [facility] [place] [address] [place] [address] ProviderHaroldo MD [address] [place] [address] Social History Tobacco Use Types [...] Do you speak a language other than [place]ian at [facility]? Yes 10/30/2024 [...] filedocumented in this encounter Care Teams Video Production Coordinator Relationship Specialty Start Date End Date Brii Amaral APRN [address] [id number] PCP - General Nurse Practitioner 08/18/23 documented as of this encounter
--- OUTSIDE RECORDS SUMMARY | 2025-05-19 12:27 | XMS_ITS | Encounter Summary ---
Author Organization [employer] ([place], [place], [place], [place]) Address [address] [place] [address] Care Team Providers Care Tobacco Wetter Name Role Phone Marielos Amaral APRN Primary Care Provider Encounter Details Date Type Department Care Team (Late st Contact Info) Description 02/06/2019 Transcribed Document [facility] Radiology [address] [place] [phone] Camilo Steven MD [address] [place] [address] Social History Tobacco Use Types Packs/Day Years [...] yrs ago), HTN, HLD that presented to [facility] ED at almost midnight last nite (02/05/19) due to right shoulder pain and weakness to right arm, with loss of balance, with bilateral waist fitter strength reduced and sensation to right arm/leg, but no facial droop or slurred speech. Patient has been on Amiodarone, Metoprolol and Aspirin for PAF but no OAC. Patient is followedby Dr. Sarai Peterson in [place]. Cardiology consulted for further evaluation and medical [...] All Problems Impaired vision / SNOMED CT 00732502 / Confirmed Stented coronary artery / SNOMED CT 8331632857 / Confirmed Angina / SNOMED CT 761622812 / Confirmed Coronary artery disease / SNOMED CT 2977619266 / Confirmed Hyperlipidemia / SNOMED CT 41363232 / Confirmed Hypertension / SNOMED CT 63904388 / Confirmed Heart failure / SNOMED CT 080324468 / Confirmed Heart murmur / SNOMED CT 585391455 / Confirmed Enlarged prostate / SNOMED CT 300492014 / Confirmed GERD - Gastro-esophageal reflux disease / SNOMED CT 6830305752 / Confirmed Diabetes mellitus type II / SNOMED CT 53462762 / Confirmed Migraine / SNOMED CT 43166117 / Confirmed History of obstructive sleep apnea / IMO [id number] / Confirmed, Active Problems (13) Angina Coronary [...] cardiac catheterization. hernia repair. tonsillectomy. Cholecystectomy; (CPT4 94005). appendectomy. left arm surgery. coronary stents. Social [...] 24 Hours) Radiology Results (Last 48 hours) [id number] -- 02/05/2019 23:59 CT Head WO (02/05/2019 [...] approximately 50% stenosis of theproximal basilar artery. nut orchardist show mild stenosis proximally. IMPRESSION: 1. 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 Anterior circulation intact.3. Mild bilateral CAR UNLOADER disease. This study was performed using dose [...] filedocumented in this encounter Care Teams Tobacco Wetter Relationship Specialty Start Date End Date Marielos Amaral, KAYE [address] [place] [address] PCP - General Nurse Practitioner 08/18/23 documented as of this encounter
--- OUTSIDE RECORDS SUMMARY | 2025-05-19 12:27 | XMS_ITS | Encounter Summary ---
Author Organization [employer] ([place], [place], [place], [place]) Address [address] [place] [address] Care Team Providers Care Information Systems Security Analyst Name Role Phone Marielos Amaral KAYE Primary Care Provider Encounter Details Date Type Department Care Team (Late st Contact Info) Description 10/31/2020 Transcribed Document [facility] [place] [address] [place] [address] ProviderHaroldo MD [address] [place], [place] [address] Social History Tobacco Use Types Packs/Day Years Used Date Smoking Tobacco: Never Assessed Sex and Gender Information Value Date Recorded Sex Assigned at Not on file Legal Sex Male 3:45 PM CDT Gender Identity Not on file Sexual Orientation Not on file documented as of this encounter Miscellaneous Notes * Cerner Conversion Note - Historical ProviderMD - 10/31/2020 11:42 PM FIREMAN ED Triage Entered On: 10/31/2020 23:49 EST [...] : 3 - Urgent Tracking Group : [facility] ED Lina John RN - 10/31/2020 23:44 EST Mode of Arrival : Ambulatory Transported to ED by : Private vehicle To Room Via : Ambulate Accompanied By : Unaccompanied ED Vital Signs : Document Height & Weight : Document ED Allergies : Document ED Reason for Visit : Document Tetanus Immunization : Greater than 5 years Sole Trimmer Needed : No Lina John RN - [...] Problems(Active) Acute cerebrovascular accident (CVA) (SNOMED CT :151917698 ) Name of Problem: Acute cerebrovascular accident (CVA) ; Recorder: Roxana Brady RN; Confirmation: Confirmed ; Classification: Medical ; Code: [id number] ; Contributor System: PowerChart ; Last Updated: 04/12/2020 7:03 EDT ; Life Cycle Date: 04/12/2020 ; Life Cycle Status: Active ; Vocabulary: SNOMED CT Angina (SNOMED CT :432964824 ) Name of Problem: Angina ; Recorder: RAVEN REILLY RN; Confirmation: Confirmed ; Classification: Patient Stated ; Code: 670582489 ; Contributor System: PowerChart ; Last Updated: 07/20/2014 9:33 EDT ; Life Cycle Date: 07/20/2014 ; Life Cycle Status: Active ; Vocabulary: SNOMED CT Coronary artery disease (SNOMED CT :7246760260 ) Name of Problem: Coronary artery disease ; Recorder: RAVEN REILLY RN; Confirmation: Confirmed ; Classification: Patient Stated ; Code: 1423317788 ; Contributor System: PowerChart ; Last Updated: 07/20/2014 9:33 EDT ; Life Cycle Date: 07/20/2014 ; Life Cycle Status: Active ; Vocabulary: SNOMED CT Diabetes mellitus type II (SNOMED CT :87007149 ) Name of Problem: Diabetes mellitus type II ; Recorder: RAVEN REILLY RN; Confirmation: Confirmed ; Classification: Patient Stated ; Code: 80741043 ; Contributor System: PowerChart ; Last Updated: 07/20/2014 9:35 EDT ; Life Cycle Date: 07/20/2014 ; Life Cycle Status: Active ; Vocabulary: SNOMED CT Enlarged prostate (SNOMED CT :594346719 ) Name of Problem: Enlarged prostate ; Recorder: RAVEN REILLY RN; Confirmation: Confirmed ; Classification: Patient Stated ; Code: 916380836 ; Contributor System: PowerChart ; Last Updated: 07/20/2014 9:34 EDT ; Life Cycle Date: 07/20/2014 ; Life Cycle Status: Active ; Vocabulary: SNOMED CT GERD - Gastro-esophageal reflux disease (SNOMED CT :8144076777 ) Name of Problem: GERD - Gastro-esophageal reflux disease ; Recorder: RAVEN REILLY RN; Confirmation: Confirmed ; Classification: Patient Stated ; Code: 4485813085 ; Contributor System: PowerChart ; Last Updated: 07/20/2014 9:34 EDT ; Life Cycle Date: 07/20/2014 ; Life Cycle Status: Active ; Vocabulary: SNOMED CT Heart failure (SNOMED CT :449412974 ) Name of Problem: Heart failure ; Recorder: RAVEN REILLY RN; Confirmation: Confirmed ; Classification: Patient Stated ; Code: 463331507 ; Contributor System: NovaPlannerChart ; Last Updated: 07/20/2014 9:33 EDT ; Life Cycle Date: 07/20/2014 ; Life Cycle Status: Active ; Vocabulary: SNOMED CT Heart murmur (SNOMED CT :824400407 ) Name of Problem: Heart murmur ; Recorder: RAVEN REILLY RN; Confirmation: Confirmed ; Classification: Patient Stated ; Code: 035765056 ; Contributor System: PowerChart ; Last Updated: 07/20/2014 9:33 EDT ; Life Cycle Date: 07/20/2014 ; Life Cycle Status: Active ; Vocabulary: SNOMED CT History of obstructive sleep apnea (IMO :93505312 ) Name of Problem: History of obstructive sleep apnea ; Recorder: SYSTEM, SYSTEM; Confirmation: Confirmed ; Classification: Medical ; Code: 86263044 ; Last Updated: 01/20/2019 12:39 EDT ; Life Cycle Date: 01/20/2019 ; Life Cycle Status: Active ; Vocabulary: IMO Hyperlipidemia (SNOMED CT :89071917 ) Name of Problem: Hyperlipidemia ; Recorder: RAVEN REILLY RN; Confirmation: Confirmed ; Classification: Patient Stated ; Code: 51270589 ; Contributor System: PowerChart ; Last Updated: 09/03/2017 13:38 EST ; Life Cycle Date: 07/20/2014 ; Life Cycle Status: Active ; Vocabulary: SNOMED CT Hypertension (SNOMED CT :76207693 ) Name of Problem: Hypertension ; Recorder: RAVEN REILLY RN; Confirmation: Confirmed ; Classification: Patient Stated ; Code: 67789487 ; Contributor System: PowerChart ; Last Updated: 07/20/2014 9:33 EDT ; Life Cycle Date: 07/20/2014 ; Life Cycle Status: Active ; Vocabulary: SNOMED CT Impaired vision (SNOMED CT :96964873 ) Name of Problem: Impaired vision ; Recorder: RAVEN REILLY RN; Confirmation: Confirmed ; Classification: Patient Stated ; Code: 96441209 ; Contributor System: PowerChart ; Last Updated: 07/20/2014 9:32 EDT ; Life Cycle Date: 07/20/2014 ; Life Cycle Status: Active ; Vocabulary: SNOMED CT Migraine (SNOMED CT :46910787 ) Name of Problem: Migraine ; Recorder: RAVEN REILLY RN; Confirmation: Confirmed ; Classification: Patient Stated ; Code: 35029600 ; Contributor System: PowerChart ; Last Updated: 07/20/2014 9:35 EDT ; Life Cycle Date: 07/20/2014 ; Life Cycle Status: Active ; Vocabulary: SNOMED CT Stented coronary artery (SNOMED CT :6894805451 ) Name of Problem: Stented coronary artery ; Recorder: RAVEN REILLY RN; Confirmation: Confirmed ; Classification: Patient Stated ; Code: 9117437092 ; Contributor System: NovaPlannerChart ; Last Updated: 07/20/2014 9:33 EDT ; Life Cycle Date: 07/20/2014 ; Life Cycle Status: Active ; Vocabulary: SNOMED CT Diagnoses(Active) SOA - Shortness of Air Date: 10/31/2020 ; Diagnosis Type: Reason For Visit ; Confirmation: Complaint of ; Clinical Dx: SOA - Shortness of Air ; Classification: Medical ; Clinical Service: Non-Specified ; Code: PNED ; Probability: 0 ; Diagnosis Code: [id number] ED Height and Weight Height Source : Stated Height Entry Format : [place] Height, Feet : 5 ft(Converted to: 152 cm, 60 Inch) Height, Inches : 9 Inch(Converted to: 0 ft 9 Inch, 22.86 cm) Clinical Height : 175.26 cm Weight Source, ED : Critical estimated dosing weight Weight Entry Format : [place] Weight, Pounds : 197 lb Clinical Dosing Weight : 89.55 kg Body Surface Area (BSA) : 2.05 m2 Body Mass Index : 29.2 kg/m2 (HI) [place] Body Weight (IBW) : 69.73 kg Lina [...] on filedocumented in this encounter Care Teams Information Systems Security Analyst Relationship Specialty Start Date End Date Marielos Amaral, BANK BOSS [address] [place] [address] PCP - General Nurse Practitioner 08/18/23 documented as of this encounter
--- OUTSIDE RECORDS SUMMARY | 2025-05-19 12:27 | XMS_ITS | Encounter Summary ---
Author Organization [employer] ([place], [place], [place], [place]) Address [address] [place] [address] Care Team Providers Care Preschool Aide Name Role Phone Marielos Amaral APRN Primary Care Provider Encounter Details Date Type Department Care Team (Late st Contact Info) Description 02/06/2019 Transcribed Document [facility] [address] [id number] Fidencio Tolliver MD [address] [place] [address] [address] [place] [address] Social History Tobacco Use Types Packs/Day Years [...] risk factors. CODE STATUS: Full code CONSULTS: [facility] WORKUP / PROCEDURES: HOSPITAL FOLLOWUP: 02/06 [...] Results Review Radiology Results (Last 48 hours) [id number] -- 02/05/2019 23:59 CT Head WO (02/05/2019 [...] approximately 50% stenosis of theproximal basilar artery. deicer inspector pneumatic show mild stenosis proximally. IMPRESSION: 1. 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 Anterior circulation intact.3. Mild bilateral DEMOGRAPHER disease. This study was performed using dose [...] on filedocumented in this encounter Care Teams Preschool Aide Relationship Specialty Start Date End Date Marielos Amaral, KAYE [address] [place] [address] PCP - General Nurse Practitioner 08/18/23 documented as of this encounter
--- OUTSIDE RECORDS SUMMARY | 2025-05-19 12:27 | XMS_ITS | Encounter Summary ---
Author Organization [facility] ([place], [place], [place], [place]) Address [address] [place] [address] Care Team Providers Care Journal Box Inspector Name Role Phone Munir Marielos RESTREPO Primary Care Provider [phone] Encounter Details Date Type Department Care Team (Late st Contact Info) Description 04/26/2022 Transcribed Document [facility] [place] [address] [place] [address] ProviderHaroldo MD [address] [place] [address] Social History Tobacco Use Types [...] speak a language other than [place] at [facility]? Yes 10/30/2024 Do you want [...] Other (See Comment) Eliquis: 2.5 mg, Oral, I91KXek Flomax: 0.4 mg, Oral, Daily Metoprolol Succinate ER: 50 mg, Oral, Daily Normal Saline 1,000 mL: 100 mL/Hr, IntraVENous Rocephin: 1 Gram, 100 mL/Hr, IV Piggyback, I31KUbf Tylenol: 650 mg, Oral, Q4H, PRN: Pain [...] mg tab 2.5 mg 1 Tab, Oral, S11BDxe atorvastatin 40 mg tab 40 mg 1 Tab, Oral, At Bedtime cefTRIAXone 1 Gram, IV Piggyback, K37IZsw cholecalciferol 1,000 unit tab 1,000 Units 1 [...] list: Medical Atrial fibrillation / SNOMED CT 04664769 / Confirmed CAD - Coronary artery disease / SNOMED CT 7409105510 / Confirmed Cardiomyopathy / SNOMED CT 848898558 / Confirmed Acute cerebrovascular accident (CVA) / SNOMED CT 709412288 / Confirmed History of obstructive sleep apnea / IMO 16650542 / Confirmed HLD - Hyperlipidemia / SNOMED CT 321580146 / Confirmed HTN - Hypertension / SNOMED CT 9100124553 / Confirmed Type 2 diabetes mellitus / SNOMED CT 406554366 / Confirmed, Active Problems (20) Acute cerebrovascular [...] Gastrointestinal: Soft, Non-tender, Non-distended. Integumentary: Warm, Dry, [place]. Neurologic: Alert, Oriented, No focal deficits. Psychiatric: [...] renal diet. - No emergent need of INSIDE SALES ACCOUNT REPRESENTATIVE. Will follow. Can be discharged today. Follow up with [facility] in 2 weeks @ [facility] with renal function panel and UA. Electronically signed by Brittany, [facility] Conversion Worship Leader Cerner at 01/24/2023 10:39 AM CDT documented in this encounter Plan of Treatment Not on file documented as of this encounter Visit Diagnoses Not on filedocumented in this encounter Care Teams Journal Box Inspector Relationship Specialty Start Date End Date Amaral Marielos, CAFETERIA MANAGER [address] [address] PCP - General Nurse Practitioner 08/18/23 documented as of this encounter
--- OUTSIDE RECORDS SUMMARY | 2025-05-19 12:27 | XMS_ITS | Encounter Summary ---
Author Organization [employer] ([place], [place], [place], [place]) Address [address] [place] [address] Care Team Providers Care Associate Programmer Name Role Phone AmaralMarielos roque KAYE Primary Care Provider Encounter Details Date Type Department Care Team (Late st Contact Info) Description 02/06/2019 Transcribed Document [facility] [place] Family Medicine [address] [place] [address] ProviderHaroldo MD [address] [place] [address] Social History Tobacco Use Types Packs/Day Years [...] filedocumented in this encounter Care Teams Associate Programmer Relationship Specialty Start Date End Date Marielos Amaral, OIL WELL CABLE TOOL DRILLER [address] [place] [address] PCP - General Nurse Practitioner 08/18/23 documented as of this encounter
--- OUTSIDE RECORDS SUMMARY | 2025-05-19 12:27 | XMS_ITS | Encounter Summary ---
Author Organization [email or web address] ([place], [place], [place], [place]) Address [address] [place] [address] Care Team Providers Care Reiki Practitioner Name Role Phone Munir Marielos RESTREPO Primary Care Provider Encounter Details Date Type Department Care Team (Late st Contact Info) Description 04/25/2022 Transcribed Document [facility] [place] [address] [place] [address] ProviderHaroldo MD [address] [place] [address] Social History Tobacco Use Types [...] speak a language other than Mauritian at [facility]? Yes 10/30/2024 Do [...] On: 04/25/2022 16:15 EDT by LEXX LOWRY, RN-Remote Broadcast TechnicianPiping Designer Progress Note Discharge Arrangements : Patient Post-Acute Information Patient Name: ZACKARY ANTOINE Gender: Male : 52 Age: 71 Years No Post-Acute Placement(s) Listed No Post-Acute Service(s) Listed No Curaspan Referral(s) Listed Barriers to Discharge Identified : Clinical Condition of Patient Barriers to Discharge Unresolved : Clinical Condition of Patient Patient Discharge Goal : Home [facility] Quality Web Info Shared w Pt/Fam : No Does the Patient have a Floor to SNF Benefit? : No Is the Patient Meeting Medical Necessity : Yes Physician Agreeable to Move Forward with D/C Plan? : Yes Did you Attend Multidisciplinary Rounds? 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 CM attempted to meet with pt this evening for CM eval, but pt sleeping soundly. CM will need to f/u with pt for full CM eval and send referrals as appropriate, as pt will likely benefit from HH vs inpt rehab. TYSHAWN RIGGINS, RN-Remote Broadcast Technician ED - 04/23/22 23:38:53 LEXX LOWRY, RN-Remote Broadcast Technician - 04/25/2022 16:15 EDT documented in this encounter Plan of Treatment Not on file documented as of this encounter Visit Diagnoses Not on filedocumented in this encounter Care Teams Reiki Practitioner Relationship Specialty Start Date End Date Marielos Amaral APRN [address] [address] PCP - General Nurse Practitioner 08/18/23 documented as of this encounter
--- OUTSIDE RECORDS SUMMARY | 2025-05-19 12:27 | XMS_ITS | Encounter Summary ---
Author Organization [employer] ([place], [place], [place], [place]) Address [address] [place] [address] Care Team Providers Care Mechanical Expert Name Role Phone Marielos Amaral KAYE Primary Care Provider Encounter Details Date Type Department Care Team (Late st Contact Info) Description 02/06/2019 Transcribed Document [facility] [place] [address] [place] [address] ProviderHaroldo MD [address] [place] [address] Social History Tobacco Use Types Packs/Day Years [...] Meds: Colace, Pepcid, Humalog, Metformin GI: LBM ACTIVITIES DIRECTOR Skin: WNLs Ht: 69 Wt: 175# wt [...] EDT Electronically signed by Renetta Soto Conversion Electronic Health Records Specialist Pennyner at 01/24/2023 10:27 AM CDT documented in this encounter Plan of Treatment Not on file documented as of this encounter Visit Diagnoses Not on filedocumented in this encounter Care Teams Mechanical Expert Relationship Specialty Start Date End Date Marielos Amaral APRN [address] [address] PCP - General Nurse Practitioner 08/18/23 documented as of this encounter
--- OUTSIDE RECORDS SUMMARY | 2025-05-19 12:27 | XMS_ITS | Encounter Summary ---
Author Organization [employer] ([place], [place], [place], [place]) Address [address] [place] [address] Care Team Providers Care Oven Dumper Name Role Phone Marielos Amaral SIDE HEMMER Primary Care Provider Encounter Details Date Type Department Care Team (Late st Contact Info) Description 10/31/2020 Transcribed Document [facility] [place] [address] [place] [address] ProviderHaroldo MD [address] [place], [place] [address] Social History Tobacco Use Types Packs/Day Years Used Date Smoking Tobacco: Never Assessed Sex and Gender Information Value Date Recorded Sex Assigned at Not on file Legal Sex Male 3:45 PM CDT Gender Identity Not on file Sexual Orientation Not on file documented as of this encounter Miscellaneous Notes * Cerner Conversion Note - Historical ProviderMD - 10/31/2020 11:54 PM GRAIN PICKER Patient: ZACKARY ANTOINE Age: 69 years Sex: [...] Cardiac catheterization. hernia repair. Tonsillectomy. Cholecystectomy; (CPT4 [id number]). Appendectomy. left arm surgery. Coronary stents. EGD - Esophagogastroduodenoscopy (SNOMED CT 3600702447). Comments: 04/12/2020 7:04 AIMEET - Roxana Brady RN with radio frequency ablation CABG x 4 - Coronary artery bypass grafts x 4 (SNOMED CT 908273734)., Reviewed as documented in chart. Family history: [...] EST Height Source Stated Height Entry Format [place] Height/Length, SWISS (ft) 5 ft Height/Length SWISS 9 Inch CLINICALHEIGHT 175.26 cm [place] Body Weight 69.73 kg Weight Source, ED Critical estimated dosing weight Weight Entry Format [place] Weight [place] lb 197 lb CLINICALWEIGHT 89.55 kg Body [...] rhythm, No ST changes, no ectopy, normal DC & QRS intervals, EP Interp. Results review: [...] 16.3 % LOW Lymph # 1.55 x10(3)/uL [place] % 9.7 % [place] # 0.92 K/uL Eos % 2.2 % [...] 1:58 EST, Discharge to: Home. Prescriptions: Prescription [facility]: bumetanide 1 mg oral tablet (Prescribe): [...] Date End Date Marielos Amaral APRN [address] [address] PCP - General Nurse Practitioner 08/18/23 documented as of this encounter
--- OUTSIDE RECORDS SUMMARY | 2025-05-19 12:27 | XMS_ITS | Encounter Summary ---
Author Organization [employer] ([place], [place], [place], [place]) Address [address] [place] [address] Care Team Providers Care Labor Custodian Name Role Phone Munir Marielos RESTREPO Primary Care Provider Encounter Details Date Type Department Care Team (Late st Contact Info) Description 05/01/2022 Transcribed Document [facility] [place] [address] [place] [address] ProviderHaroldo MD [address] [place] [address] Social History Tobacco Use Types [...] speak a language other than Argentine at [facility]? Yes 10/30/2024 Do you want [...] On: 05/01/2022 8:48 EDT by Kari Chaudhary, Train Crew Member Primary Insurance Authorization Authorization and Policy Numbers : Insurance 1 Health Plan: [employer] MEDICARE REPL Policy Number: [id number] Authorization Number: Insurance Primary Name : [employer] MEDIC[employer] REPL Policy Number: [id number] Authorization Status-Primary : Drg approved Auth/Referral Contact Name-Primary : DC Reference Number-Primary : [id number] Authorization Number-Primary : [id number] Number of Days Authorized-Primary : 3 Day(s) Authorized Service Begin Date-Primary : 04/22/2022 EDT Authorized Service End Date-Primary : 04/25/2022 EDT Authorization Comments-Primary : Authorized per fax 04/30/22 @ 6433. Approved DRG admission 04/22 - 04/25. Historical Authorization Comments-Primary : Comment 1: Remains pending per [employer]. (Vanessa Pimentel, [employer]-QUALITY 04/29/2022 14:55) Comment 2: Discharge summary as well as continued stay clinical 04/24 - discharge faxed. (Kari Chaudhary, Train Crew Member 04/29/2022 14:17) Comment 3: Request for inpt auth submitted via [employer] Ref# [id number] received;clinicals attached. (Radha Dillon RN 04/23/2022 18:56) Kari Chaudhary, Train Crew Member - 05/01/2022 8:48 EDT documented in this encounter Plan of Treatment Not on file documented as of this encounter Visit Diagnoses Not on filedocumented in this encounter Care Teams Labor Custodian Relationship Specialty Start Date End Date Marielos Amaral, RETAIL ACCOUNT REPRESENTATIVE [address] [id number] PCP - General Nurse Practitioner 08/18/23 documented as of this encounter
--- OUTSIDE RECORDS SUMMARY | 2025-05-19 12:27 | XMS_ITS | Encounter Summary ---
Author Organization [employer] ([place], [place], [place], [place]) Address [address] [place] [address] Care Team Providers Care Commutator Presser Name Role Phone Marielos Amaral KAYE Primary Care Provider Encounter Details Date Type Department Care Team (Late st Contact Info) Description 02/06/2019 Transcribed Document [facility] [place] Medicine [address] [place] [address] ProviderHaroldo MD [address] [place] [address] Social History Tobacco Use Types Packs/Day Years [...] JEANNETTE BROWER, RAMONA General Information Visit Type, INTERNAL AUDIT CONSULTANT : Initial evaluation Patient Orders : Speech Language Pathology Evaluation and Treatment -111 Start: 02/06/19 0:17:00 EDT, Routine, For Speech Language Cognitive Eval and Treat - FIORELLA OWENS MD-INT Admission Date : Admission Date/Time: 02/05/19 23:59:00 Medical Chart Reviewed, INTERNAL AUDIT CONSULTANT : Yes Personal Devices : Personal Devices No Devices Recorded Assistive Devices : Assistive Devices No Devices Recorded Active Diagnoses : 02/05/2019 00:00 Ataxia, unspecified 02/05/2019 00:00 Weakness Therapy Diagnosis, INTERNAL AUDIT CONSULTANT : Cognition WNL Previous Speech/Language Evaluations : N/A Previous Swallow Precautions : Bedside this admit, recs for reg/thin Previous Cognitive Evaluations : N/A Diet/Intake Prior to Current Admission : Regular/thin Diet/Intake During Current Admission : Regular/thin Intubation Comment, INTERNAL AUDIT CONSULTANT : No intubation on this admit Vital [...] 11:51 EDT General Status Patient Received Status, INTERNAL AUDIT CONSULTANT : Long sitting in bed Patient Left Status, INTERNAL AUDIT CONSULTANT : Long sitting in bed JEANNETTE BROWER [...] 11:51 EDT Evaluation Methods Types of Evaluation, INTERNAL AUDIT CONSULTANT : Informal JEANNETTE BROWER SLP - 02/07/2019 11:51 EDT [facility] Impressions Impressions, Speech/Lang/Cog : No evidence of speech/language or cognitive impairment present [facility] Overall Impressions : 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 Informal cognitive linguistic evaluation completed this date. The pt presents with no overt deficits and reports no concerns at this time. No further f/u indicated. JEANNETTE BROWER SLP - 02/07/2019 11:51 EDT Therapy Indication Assessment INTERNAL AUDIT CONSULTANT Indicated : No INTERNAL AUDIT CONSULTANT Not Indicated : At prior level of function, No skilled services indicated INTERNAL AUDIT CONSULTANT Interdisciplinary Consultation Needs : No JEANNETTE BROWER SLP - 02/07/2019 11:51 EDT Education Barriers To Learning : None evident Individuals Taught : Patient Readiness to Learn : Cooperative Learning Style Preferences Patient : None JEANNETTE BROWER SLP - 02/07/2019 11:51 EDT INTERNAL AUDIT CONSULTANT Education Assessment Grid 2 Review Results of Evaluations : Verbalizes understanding JEANNETTE BROWER SLP - 02/07/2019 11:[address] [facility] [place] INTERNAL AUDIT CONSULTANT Charges Evaluation of Speech Production & Language : 1 JEANNETTE BROWER SLP - 02/07/2019 11:51 EDT documented in this encounter Plan of Treatment Not on file documented as of this encounter Visit Diagnoses Not on filedocumented in this encounter Care Teams Commutator Presser Relationship Specialty Start Date End Date Marielos Amaral, WELD TECHNICIAN [address] [place] [address] PCP - General Nurse Practitioner 08/18/23 documented as of this encounter
--- OUTSIDE RECORDS SUMMARY | 2025-05-19 12:27 | XMS_ITS | Encounter Summary ---
Author Organization [employer] ([place], [place], [place], [place]) Address [address] [place] [address] Care Team Providers Care Parcel Post Order Clerk Name Role Phone Munir Marielos RESTREPO Primary Care Provider Encounter Details Date Type Department Care Team (Late st Contact Info) Description 04/29/2022 Transcribed Document [facility] [place] [address] [place] [address] ProviderHaroldo MD [address] [place], [place] [...] Do you speak a language other than [place] Sudanese at [facility]? [...] On: 04/29/2022 14:17 EDT by Kari Chaudhary, Senior Director Of Strategy Primary Insurance Authorization Authorization and Policy Numbers : Insurance 1 Health Plan: ANTHEM MEDICARE REPL Policy Number: [id number] Authorization Number: Insurance Primary Name : ANTHEM MEDICARE REPL Policy Number: [id number] Authorization Status-Primary : Awaiting callback Auth/Referral Contact Name-Primary : DC Reference Number-Primary : [id number] Authorized Service Begin Date-Primary : 04/22/2022 EDT Authorization Comments-Primary : Discharge summary as well as continued stay clinical 04/24 - discharge faxed. Historical Authorization Comments-Primary : Comment 1: Request for inpt auth submitted via [facility] Ref# [id number] received;clinicals attached. (Radha Dillon RN 04/23/2022 18:56) Kari Chaudhary, Senior Director Of Strategy - 04/29/2022 14:17 EDT Electronically signed by Brittany [facility] Conversion Chief Of Production Cerner at 01/24/2023 10:26 AM CDT documented in this encounter Plan of Treatment Not on file documented as of this encounter Visit Diagnoses Not on filedocumented in this encounter Care Teams Parcel Post Order Clerk Relationship Specialty Start Date End Date Marielos Amaral, KEY ACCOUNT MANAGER [address] [place] [address] PCP - General Nurse Practitioner 08/18/23 documented as of this encounter
--- OUTSIDE RECORDS SUMMARY | 2025-05-19 12:27 | XMS_ITS | Encounter Summary ---
Author Organization [employer] ([place], [place], [place], [place]) Address [address] [place] [address] Care Team Providers Care Hub Associate Name Role Phone Marielos Amaral APRN Primary Care Provider Encounter Details Date Type Department Care Team (Late st Contact Info) Description 11/01/2020 Transcribed Document [facility] [place] [address] [place] [address] ProviderHaroldo MD [address] [place], [place] [address] Social History Tobacco Use Types Packs/Day Years Used Date Smoking Tobacco: Never Assessed Sex and Gender Information Value Date Recorded Sex Assigned at Not on file Legal Sex Male 3:45 PM CDT Gender Identity Not on file Sexual Orientation Not on file documented as of this encounter Miscellaneous Notes * [employer] Conversion Note - Historical ProviderMD - 11/01/2020 1:57 AM AUCTIONEER TOBACCO Electronically signed by [facility] Conversion Fundraising Coordinator Cerner at 01/24/2023 10:19 AM CDT documented in this encounter Plan of Treatment Not on file documented as of this encounter Visit Diagnoses Not on filedocumented in this encounter Care Teams Hub Associate Relationship Specialty Start Date End Date Marielos Amaral APRN [address] [address] PCP - General Nurse Practitioner 08/18/23 documented as of this encounter
--- OUTSIDE RECORDS SUMMARY | 2025-05-19 12:27 | XMS_ITS | Encounter Summary ---
Author Organization [employer] ([place], [place], [place], [place]) Address [address] [place] [address] Care Team Providers Care Trial Consultant Name Role Phone Marielos Amaral KAYE Primary Care Provider Encounter Details Date Type Department Care Team (Late st Contact Info) Description 10/31/2020 Transcribed Document [facility] [place] Family Medicine [address] [place] [address] ProviderHaroldo MD [address] [place], [place] [address] Social History Tobacco Use Types Packs/Day Years Used Date Smoking Tobacco: Never Assessed Sex and Gender Information Value Date Recorded Sex Assigned at Not on file Legal Sex Male 3:45 PM CDT Gender Identity Not on file Sexual Orientation Not on file documented as of this encounter Miscellaneous Notes * Cerner Conversion Note - Historical ProviderMD - 10/31/2020 11:42 PM FASHION ILLUSTRATOR Broset Violence Assessment Entered On: 11/01/2020 1:33 EST Performed On: 11/01/2020 1:32 EST by Cara Butler Rn Broset Violence Assessment Broset Violence Checklist of Symptoms : None Broset Violence Symptoms Subtotal : 0 Broset Violence Symptoms Indicator : Low risk (0) Cara Butler Rn - 11/01/2020 1:32 EST documented in this encounter Plan of Treatment Not on file documented as of this encounter Visit Diagnoses Not on filedocumented in this encounter Care Teams Trial Consultant Relationship Specialty Start Date End Date Marielos Amaral, KAYE [address] [place] [address] PCP - General Nurse Practitioner 08/18/23 documented as of this encounter
--- OUTSIDE RECORDS SUMMARY | 2025-05-19 12:27 | XMS_ITS | Encounter Summary ---
Author Organization [employer] ([place], [place], [place], [place]) Address [address] [place] [address] Care Team Providers Care Truck Driver Supervisor Name Role Phone Marielos Amaral KAYE Primary Care Provider [phone] Encounter Details Date Type Department Care Team (Late st Contact Info) Description 02/06/2019 Transcribed Document [facility] [place] Family Medicine Replaced by [facility] [place] [address] ProviderHaroldo MD [address] [place] [address] Social History Tobacco Use Types Packs/Day Years [...] to right arm and loss of balance mechanic field service strength equal bilaterally decreased sensation to right [...] Physician Consult to Spiritual Care Consult to Farmworker General CRP C-Reactive Protein Diet, Adult Do Not [...] Lymph # 2.34 x10(3)/uL 02/05/2019 21:52 EDT Barton % 8.7 % 02/05/2019 21:52 EDT Barton # 0.99 K/uL 02/05/2019 21:52 EDT Eos [...] Appearance CLEAR2 02/05/2019 23:59 EDT Urine Specific [place] 1.016 02/05/2019 23:59 EDT Urine pH Dipstick [...] Code, Continuous Order Electronically signed by Brittany [facility] Conversion Roll Handler Cerner at 01/24/2023 10:25 AM CDT documented in this encounter Plan of Treatment Not on file documented as of this encounter Visit Diagnoses Not on filedocumented in this encounter Care Teams Truck Driver Supervisor Relationship Specialty Start Date End Date Marielos Amaral, ROOF CEMENT AND PAINT MAKER HELPER [address] [id number] PCP - General Nurse Practitioner 08/18/23 documented as of this encounter
--- OUTSIDE RECORDS SUMMARY | 2025-05-19 12:27 | XMS_ITS | Encounter Summary ---
Author Organization [employer] ([place], [place], [place], [place]) Address [address] [place] [address] Care Team Providers Care Technician'S Helper Name Role Phone AmaralMarielos roque KAYE Primary Care Provider Encounter Details Date Type Department Care Team (Late st Contact Info) Description 02/06/2019 Transcribed Document [facility] [place] Family Medicine [address] [place] [address] ProviderHaorldo MD [address] [place] [address] Social History Tobacco Use Types Packs/Day Years [...] on filedocumented in this encounter Care Teams Technician'S Helper Relationship Specialty Start Date End Date Marielos Amaral, PROTECTIVE SERVICES OFFICER [address] [place] [address] PCP - General Nurse Practitioner 08/18/23 documented as of this encounter
--- OUTSIDE RECORDS SUMMARY | 2025-05-19 12:27 | XMS_ITS | Encounter Summary ---
Author Organization [employer] ([place], [place], [place], [place]) Address [address] [place] [address] Care Team Providers Care Urogynecology Physician Name Role Phone Marielos Amaral KAYE Primary Care Provider Encounter Details Date Type Department Care Team (Late st Contact Info) Description 02/06/2019 Transcribed Document [facility] [place] [facility] [place] [address] ProviderHaroldo MD [address] [place] [address] Social History Tobacco Use Types Packs/Day Years [...] were negative according to endorsement from physician tourist information assistant ER. Patient was _seen in _ [...] report available, but per endorsement from physician tourist information assistant, they were all negative without any [...] Brennan Lopes M.D. Electronically signed by Brittany, [facility] Conversion Air Pollution Analyst Cerner at 01/24/2023 10:41 AM CDT documented in this encounter Plan of Treatment Not on file documented as of this encounter Visit Diagnoses Not on filedocumented in this encounter Care Teams Urogynecology Physician Relationship Specialty Start Date End Date Marielos Amaral, KAYE [address] [place] [phone] PCP - General Nurse Practitioner 08/18/23 documented as of this encounter
--- OUTSIDE RECORDS SUMMARY | 2025-05-19 12:27 | XMS_ITS | Encounter Summary ---
Author Organization [employer] ([place], [place], [place], [place]) Address [address] [place] [address] Care Team Providers Care Sterilizer Operator Name Role Phone Munir Marielos RESTREPO Primary Care Provider Encounter Details Date Type Department Care Team (Late st Contact Info) Description 04/26/2022 Transcribed Document [facility] [place] Family Medicine [address] [place] [address] ProviderHaroldo MD [address] [place] [address] Social History Tobacco Use [...] speak a language other than Kittitian at [facility]? Yes 10/30/2024 Do you [...] these instructions at home: Medicines ??? Take gvpv-uvj-wcgbzgo and prescription medicines only as told by [...] important. Where to find more information ??? Haitian Association of Kidney Patients: www.aakp.org ??? National Kidney Foundation: www.kidney.org ??? Haitian Kidney Fund: www.akfinc.org ??? Life Options Rehabilitation [...] provider. Document Revised: 08/01/2020 Document Reviewed: 08/01/2020 ElseParsimotion Patient Education ? 2020 [employer]. documented in this encounter Plan of Treatment Not on file documented as of this encounter Visit Diagnoses Not on filedocumented in this encounter Care Teams Sterilizer Operator Relationship Specialty Start Date End Date Mraielos Amaral, KAYE [address] [place] [address] PCP - General Nurse Practitioner 08/18/23 documented as of this encounter
--- OUTSIDE RECORDS SUMMARY | 2025-05-19 12:27 | XMS_ITS | Encounter Summary ---
Author Organization [employer] ([place], [place], [place], [place]) Address [address] [place] [address] Care Team Providers Care Freelance Photographer Name Role Phone Marielos Amaral KAYE Primary Care Provider [phone] Encounter Details Date Type Department Care Team (Late st Contact Info) Description 02/06/2019 Transcribed Document [facility] [place] Family Medicine [address] [place] [address] ProviderHaroldo MD [address] [place] [address] Social History Tobacco Use Types Packs/Day Years [...] On: 02/06/2019 12:27 EDT by KELLY CROUCH, MENDER HAND General Information Visit Type, MENDER HAND : Initial evaluation Patient Orders : Speech Language Pathology Swallow Evaluation and Treatment -111 Start: 02/06/19 12:27:00 EDT, Routine, For Swallow Eval and Treat - RODNEY KAUR MD Speech Language Pathology Evaluation and Treatment - Start: 02/06/19 0:17:00 EDT, Routine, For Speech Language Cognitive Eval and Treat -111 FIORELLA OWENS MD-INT Ordering Provider : ORDNEY KAUR MD Admission Date : Admission Date/Time: 02/05/19 23:59:00 Medical Chart Reviewed, MENDER HAND : Yes Personal Devices : Personal Devices No Devices Recorded Assistive Devices : Assistive Devices No Devices Recorded Active Diagnoses : 02/05/2019 00:00 Ataxia, unspecified 02/05/2019 00:00 Weakness Therapy Diagnosis, MENDER HAND : oropharyngeal swallow seemingly within functional limits Previous Speech/Language Evaluations : N/A Previous Swallow Precautions : N/A Previous Cognitive Evaluations : N/A Diet/Intake Prior to Current Admission : Regular/thin Diet/Intake During Current Admission : Regular/thin Intubation Comment, MENDER HAND : No intubation on this admit Vital [...] 12:27 EDT General Status Patient Received Status, MENDER HAND : Sitting edge of bed Patient Left Status, MENDER HAND : Sitting edge of bed KELLY CROUCH [...] Oral Mechanism for Daily Living : Intact MENDER HAND Cough : Strong Facial Appearance: : Symmetrical [...] with thin. No further dysphagia services warranted, MENDER HAND will sign off. KELLY CROUCH MENDER HAND - 02/06/2019 12:27 EDT Swallow Recommendations Recommended Diet Type, SwRec : Regular Recommended Liquid Diet, SwRec : Thin Feeding Presentation Style, SwRec : No restrictions Swallow Position, SwRec : Upright 90 degrees Supervision Level w/Meals, SwRec : Independent, complete Recommended Med Present, SwRec : Whole, With thin liquid KELLY CROUCH MENDER HAND - 02/06/2019 12:27 EDT Therapy Indication Assessment MENDER HAND Indicated : No MENDER HAND Not Indicated : At prior level of function, No skilled services indicated KELLY CROUCH MENDER HAND - 02/06/2019 12:27 EDT Education Barriers To Learning : None evident Individuals Taught : Patient, Spouse Readiness to Learn : Cooperative Readiness to Learn : Explanation KELLY CROUCH SLP - 02/06/2019 12:27 EDT MENDER HAND Education Assessment Grid 1 Diet Recommendation : Verbalizes understanding Evaluation Results : Verbalizes understanding KELLY CROUCH, MENDER HAND - 02/06/2019 12:[address] [facility] Evaluation Swallowing Function : 1 KELLY CROUCH, MENDER HAND - 02/06/2019 12:27 EDT Electronically signed by [facility], [facility] Conversion Traffic Line Painter Cerner at 01/24/2023 10:42 AM CDT documented in this encounter Plan of Treatment Not on file documented as of this encounter Visit Diagnoses Not on filedocumented in this encounter Care Teams Freelance Photographer Relationship Specialty Start Date End Date Marielos Amaral, STEWARD/STEWARDESS ROOM [address] [place] [address] PCP - General Nurse Practitioner 08/18/23 documented as of this encounter
--- OUTSIDE RECORDS SUMMARY | 2025-05-19 12:27 | XMS_ITS | Encounter Summary ---
Author Organization [employer] ([place], [place], [place], [place]) Address [address] [place] [address] Care Team Providers Care Complaint Inspector Name Role Phone Marielos Amaral KAYE Primary Care Provider Encounter Details Date Type Department Care Team (Late st Contact Info) Description 02/06/2019 Transcribed Document [facility] [place] Family Medicine [address] [place] [address] ProviderHaroldo MD [address] [place] [address] Social History Tobacco Use Types Packs/Day Years [...] 02/06/2019 11:33 EDT Electronically signed by Brittany [facility] Conversion Oil Distributor Cerner at 01/24/2023 10:45 AM CDT documented in this encounter Plan of Treatment Not on file documented as of this encounter Visit Diagnoses Not on filedocumented in this encounter Care Teams Complaint Inspector Relationship Specialty Start Date End Date Marielos Amaral, KAYE [address] [place] [phone] PCP - General Nurse Practitioner 08/18/23 documented as of this encounter
--- OUTSIDE RECORDS SUMMARY | 2025-05-19 12:27 | XMS_ITS | Encounter Summary ---
Author Organization [employer] ([place], [place], [place], [place]) Address [address] [place] [address] Care Team Providers Care Sheet Metal Layout Worker Name Role Phone Munir Brii RESTREPO Primary Care Provider Encounter Details Date Type Department Care Team (Late st Contact Info) Description 04/26/2022 Transcribed Document [facility] [place] Family Medicine [address] [place] [address] ProviderHaroldo MD [address] [place] [address] Social History Tobacco Use Types [...] speak a language other than Swazi at [facility]? Yes 10/30/2024 Do you want help [...] Haroldo Provider, - 04/26/2022 1:19 PM CDT [facility] [place] [id number] DEION ANTOINE :1950 Visit Time:04/22/2022 Your Visit Summary Your Care Team Admitting Physician - NITA WHEELER DO-INT Attending Physician - BARRETT PAK DO Primary Care Physician - KATELYN MCKEON MD-[facility] Referring Physician - HERMES, SELF REFERRED [...] Within 1 week Where: [address] [address]- Business (1) Follow Up with PARAM WEBBER When Within 2 weeks Comments Follow up with LAMBERTO in 2 weeks @ [facility] with renal function panel and UA. Where: [address] [address] [place] [address]- Business (1) Medications What How Much When Instructions Next Dose Durable Medical Equipment (Glucometer Lancets) 1 Each Miscellaneous See Comment Glucometer Lancets. to check blood sugar TID. disp # 100. no refills. Pickup at [facility] Durable [facility] Equipment (Glucometer Test Strips) 1 Each Miscellaneous See Comment Glucometer Test Strips. to check blood sugar TID. disp # 100. no refills. Pickup at [facility] Equipment (Glucometer) 1 Each Miscellaneous See Comment Glucometer Pickup at [facility] insulin glargine (Basaglar KwikPen 100 units/ mL subcutaneous solution) 15 Unit(s) SubCutaneous Once a day (at bedtime) Pickup at [facility] levothyroxine (levothyroxine 75 mcg (0.075 mg) oral tablet) 1 Tablet(s) Oral Every Day Pickup at [facility] amiodarone (amiodarone 200 mg oral tablet) [...] 1 Capsule(s) Oral Every Day Pharmacy Information [facility] [place]: [address] [id number] [place], [place] [id number] [phone] Take your medications faithfully. Do NOT skip [...] these instructions at home: Medicines ??? Take rcse-bgo-zedwsqv and prescription medicines only as told by [...] important. Where to find more information ??? Congolese Association of Kidney Patients: www.aakp.org ??? National Kidney Foundation: www.kidney.org ??? Congolese Kidney Fund: www.akfinc.org ??? Life Options Rehabilitation [...] provider. Document Revised: 08/01/2020 Document Reviewed: 08/01/2020 ElseReliOn Patient Education ?? 2020 [employer]. Emergency Awareness and Preventative Care STROKE is [...] Assistance with quitting is available by contacting 1-811-YDKM-NOW. This is a free resource providing counseling, [...] range between ( 0.0 and 7.0 ) Spink #: 0.48 K/uL -- Normal range between ( 0.16 and 1.00 ) Eos #: 0.11 x10(3)/uL -- Normal range between ( 0.00 and 0.80 ) Spink %: 9.8 % -- Normal range between [...] /LPF Urine Bilirubin Dipstick: Negative Urine Specific [place]: 1.010 -- Normal range between ( 1.005 [...] ( 50 and 1400 ) Sodium Ur [place]: 85 mMole/Liter Protein Ur [place]: 20 mg/dL General Chemistry 04/26/2022 1:12 PM [...] was given the opportunity to ask questions. Patient/Event Sales Representative Name: Patient/Event Sales Representative Signature: Relationship to Patient: Clinician/Hospital Event Sales Representative Signature: Date: documented in this encounter Plan of Treatment Not on file documented as of this encounter Visit Diagnoses Not on filedocumented in this encounter Care Teams Sheet Metal Layout Worker Relationship Specialty Start Date End Date Brii Amaral APRN [address] [place] [address] PCP - General Nurse Practitioner 08/18/23 documented as of this encounter
--- OUTSIDE RECORDS SUMMARY | 2025-05-19 12:27 | XMS_ITS | Encounter Summary ---
Author Organization [employer] ([place], [place], [place], [place]) Address [address] [place] [address] Care Team Providers Care Time Study Statistician Name Role Phone Munir Marielos RESTREPO Primary Care Provider [phone] Encounter Details Date Type Department Care Team (Late st Contact Info) Description 04/27/2022 Transcribed Document [facility] [place] Family Medicine [address] [place] [address] ProviderHaroldo MD [address] [place] [address] Social History Tobacco Use Types [...] Do you speak a language other than Martiniquais at [facility]? Yes 10/30/2024 Do you want help with [...] FANY FREEMAN, PT - 04/27/2022 8:39 EDT Ski Patrol Officer Goals Mobility/Bed Mobility LTG PT Grid Goal [...] 04/27/2022 8:39 EDT Electronically signed by Brittany [facility] Conversion Straightening Machine Operator Cerner at 01/24/2023 10:33 AM CDT documented in this encounter Plan of Treatment Not on file documented as of this encounter Visit Diagnoses Not on filedocumented in this encounter Care Teams Time Study Statistician Relationship Specialty Start Date End Date Marielos Amaral, BOTTOM SAW OPERATOR [address] [place] [place] [phone] PCP - General Nurse Practitioner 08/18/23 documented as of this encounter
--- OUTSIDE RECORDS SUMMARY | 2025-05-19 12:27 | XMS_ITS | Clinical Summary ---
Author Organization [facility] Address [address] [place] [address] Phone Care Team Providers Care Head Of Marketing Analytics Name Role Phone Unavailable Unavailable Conditions or Problems No information available. Medications No information available. Medications Administered No information available. Allergies, Adverse Reactions, Alerts No information available. Results No information available. Plan of Care No information available. Procedures No information available. Vital Signs No information available. Immunizations No information available. Advance Directives No information available.
--- OUTSIDE RECORDS SUMMARY | 2025-05-19 12:27 | XMS_ITS | Encounter Summary ---
Author Organization [employer] ([place], [place], [place], [place]) Address [address] [place] [address] Care Team Providers Care Shooter Helper Name Role Phone AmaralMarielos KAYE Primary Care Provider Encounter Details Date Type Department Care Team (Late st Contact Info) Description 10/31/2020 Transcribed Document [facility] [place] Family Medicine [address] [place] [address] ProviderHaroldo MD [address] [place], [place] [address] Social History Tobacco Use Types Packs/Day Years Used Date Smoking Tobacco: Never Assessed Sex and Gender Information Value Date Recorded Sex Assigned at Not on file Legal Sex Male 3:45 PM CDT Gender Identity Not on file Sexual Orientation Not on file documented as of this encounter Miscellaneous Notes * [employer] Conversion Note - Historical ProviderMD - 10/31/2020 11:42 PM PRIMER AND POWDER CANNING LEADER [place] Suicide Severity Rating Scale (C-SSRS) Entered On: 11/01/2020 1:33 EST Performed On: 11/01/2020 1:32 EST by Cara Butler Rn [place] Suicide Severity Rating Scale (C-SSRS) CSSRS Past Month Wish to be : No CSSRS Past Month Suicidal Thoughts : No CSSRS Lifetime Suicide Behavior : No Suicide Severity Rating Score : 0 Suicide Severity Rating : No Additional Care Required at this time Cara Butler Rn - 11/01/2020 1:32 EST Electronically signed by Brittany, [facility] Conversion Irrigation District Manager Cerner at 01/24/2023 10:39 AM CDT documented in this encounter Plan of Treatment Not on file documented as of this encounter Visit Diagnoses Not on filedocumented in this encounter Care Teams Shooter Helper Relationship Specialty Start Date End Date Marielos Amaral, KAYE [address] [place] [address] PCP - General Nurse Practitioner 08/18/23 documented as of this encounter
--- OUTSIDE RECORDS SUMMARY | 2025-05-19 12:27 | XMS_ITS | Encounter Summary ---
Author Organization [employer] ([place], [place], [place], [place]) Address [address] [place] [address] Care Team Providers Care Shipwright Name Role Phone Marielos Amaral KAYE Primary Care Provider Encounter Details Date Type Department Care Team (Late st Contact Info) Description 10/31/2020 Transcribed Document [facility] [place] [address] [place] [address] ProviderHaroldo MD [address] [place], [place] [address] Social History Tobacco Use Types Packs/Day Years Used Date Smoking Tobacco: Never Assessed Sex and Gender Information Value Date Recorded Sex Assigned at Not on file Legal Sex Male 3:45 PM CDT Gender Identity Not on file Sexual Orientation Not on file documented as of this encounter Miscellaneous Notes * Cerner Conversion Note - Haroldo ProviderMD - 10/31/2020 11:42 PM TOP DYEING MACHINE LOADER ED Assessment Entered On: 11/01/2020 1:33 EST Performed On: 11/01/2020 1:32 EST by Cara Butler, plant protection superintendent Quick Look Assessment Level of Consciousness : Alert, Awake Affect/Behavior : Appropriate, Calm, Cooperative Orientation : Oriented x 4 Skin Temperature : Warm Skin Description : Normal for ethnicity Cara Butler Rn - 11/01/2020 1:32 EST ED General-Functional Assess Information Obtained From : Patient Preferred Communication Mode : Verbal Communication Barrier : None Primary Language : Greek Any Spiritual/Cultural Needs or Requests : No [...] - 11/01/2020 1:32 EST Electronically signed by [facility], [facility] Conversion Coil Placer Cerner at 01/24/2023 10:42 AM CDT documented in this encounter Plan of Treatment Not on file documented as of this encounter Visit Diagnoses Not on filedocumented in this encounter Care Teams Shipwright Relationship Specialty Start Date End Date Marielos Amaral, BANQUET LINE COOK [address] [place] [address] PCP - General Nurse Practitioner 08/18/23 documented as of this encounter
--- OUTSIDE RECORDS SUMMARY | 2025-05-19 12:27 | XMS_ITS | Encounter Summary ---
Author Organization [email or web address] ([place], [place], [place], [place]) Address [address] [place] [address] Care Team Providers Care Product Accountant Name Role Phone Munir Brii RESTREPO Primary Care Provider [phone] Encounter Details Date Type Department Care Team (Late st Contact Info) Description 04/26/2022 Transcribed Document [facility] [place] Family Medicine [address] [place] [address] ProviderHaroldo MD [address] [place] [address] Social History Tobacco Use Types [...] speak a language other than Martiniquais at [facility]? Yes 10/30/2024 Do you want [...] Encounter/Past 24 Hours) Creatinine Level 2.50 mg/dL CA 04/26/2022 07:49 eGFR 31 mL/min/1.73m2 LOW 04/26/2022 07:49 Bun/Creatinine 14.8 04/26/2022 07:49 eGFR NonAfrican 26 mL/min/1.73m2 LOW 04/26/2022 07:49 Sodium Level 134 mmol/L LOW 04/26/2022 07:49 Potassium Level 4.9 mmol/L 04/26/2022 07:49 Chloride Level 106 mmol/L 04/26/2022 07:49 Carbon Dioxide Level 22 mmol/L 04/26/2022 07:49 Anion Gap 11 04/26/2022 07:49 Blood Urea Nitrogen 37 mg/dL CA 04/26/2022 07:49 Glucose Level 180 mg/dL CA 04/26/2022 07:49 Calcium Level 8.9 mg/dL 04/26/2022 [...] with right sided weakness who presented to [facility] on 04/22 for evaluation of weakness. [...] filedocumented in this encounter Care Teams Product Accountant Relationship Specialty Start Date End Date Brii Amaral, ALTERATION TAILOR APPRENTICE [address] [place] [address] PCP - General Nurse Practitioner 08/18/23 documented as of this encounter
--- OUTSIDE RECORDS SUMMARY | 2025-05-19 12:27 | XMS_ITS | Encounter Summary ---
Author Organization [employer] ([place], [place], [place], [place]) Address [address] [place] [address] Care Team Providers Care Bell Clerk Name Role Phone Marielos Amaral APRN Primary Care Provider Encounter Details Date Type Department Care Team (Late st Contact Info) Description 02/06/2019 Transcribed Document [facility] [place] [place] [address] [place] [address] ProviderHaroldo MD [address] [place] [address] Social History Tobacco Use Types Packs/Day Years [...] Plan: [employer] GOLD PLUS HMO Policy Number: [id number] Authorization Number: Insurance Primary Name : Humana [...] on filedocumented in this encounter Care Teams Bell Clerk Relationship Specialty Start Date End Date Marielos Amaral, PAPER STRIPPER [address] [place] [address] PCP - General Nurse Practitioner 08/18/23 documented as of this encounter
--- OUTSIDE RECORDS SUMMARY | 2025-05-19 12:27 | XMS_ITS | Encounter Summary ---
Author Organization [employer] ([place], [place], [place], [place]) Address [address] [place] [address] Care Team Providers Care Forensic Manager Name Role Phone Marielos Amaral KAYE Primary Care Provider Encounter Details Date Type Department Care Team (Late st Contact Info) Description 02/06/2019 Transcribed Document [facility] [place] Family Medicine [address] [place] [address] ProviderHaroldo MD [address] [place] [address] Social History Tobacco Use Types Packs/Day Years [...] on filedocumented in this encounter Care Teams Forensic Manager Relationship Specialty Start Date End Date Marielos Amaral, SLURRY CONTROL TENDER [address] [place] [address] PCP - General Nurse Practitioner 08/18/23 documented as of this encounter
--- OUTSIDE RECORDS SUMMARY | 2025-05-19 12:27 | XMS_ITS | Encounter Summary ---
Author Organization [employer] ([place], [place], [place], [place]) Address [address] [place] [address] Care Team Providers Care Door To Door Lead Generation Name Role Phone Marielos Amaral KAYE Primary Care Provider Encounter Details Date Type Department Care Team (Late st Contact Info) Description 11/01/2020 Transcribed Document [facility] [place] Family Medicine [facility] [place] [address] ProviderHaroldo MD [address] [place] [address] Social History Tobacco Use Types Packs/Day Years Used Date Smoking Tobacco: Never Assessed Sex and Gender Information Value Date Recorded Sex Assigned at Not on file Legal Sex Male 3:45 PM CDT Gender Identity Not on file Sexual Orientation Not on file documented as of this encounter Miscellaneous Notes * Cerner Conversion Note - Haroldo ProviderMD - 11/01/2020 2:07 AM WOUND CARE RN ED Discharge Entered On: 11/01/2020 2:07 EST [...] - 11/01/2020 2:07 EST Electronically signed by [facility], [facility] Conversion Deputy Sheriff/Investigator Cerner at 01/24/2023 10:25 AM CDT documented in this encounter Plan of Treatment Not on file documented as of this encounter Visit Diagnoses Not on filedocumented in this encounter Care Teams Door To Door Lead Generation Relationship Specialty Start Date End Date Marielos Amaral, WORKFORCE ADVISOR [address] [place] [address] PCP - General Nurse Practitioner 08/18/23 documented as of this encounter
--- OUTSIDE RECORDS SUMMARY | 2025-05-19 12:27 | XMS_ITS | Encounter Summary ---
Author Organization [employer] ([place], [place], [place], [place]) Address [address] [place] [address] Care Team Providers Care Principal Cloud Architect Name Role Phone Munir Marielos RESTREPO Primary Care Provider Encounter Details Date Type Department Care Team (Late st Contact Info) Description 04/25/2022 Transcribed Document [facility] [place] Family Medicine [address] [place] [address] ProviderHaroldo MD [address] [place], [place] [...] language other than Citizen Of [place] at [facility]? Yes 10/30/2024 [...] Other (See Comment) Eliquis: 2.5 mg, Oral, [id number] Flomax: 0.4 mg, Oral, Daily Lokelma: 15 Gram, Oral, 1-Time Metoprolol Succinate ER: 50 mg, Oral, Daily Normal Saline 1,000 mL: 100 mL/Hr, IntraVENous Rocephin: 1 Gram, 100 mL/Hr, IV Piggyback, [id number] Tylenol: 650 mg, Oral, Q4H, PRN: Pain [...] mg tab 2.5 mg 1 Tab, Oral, [id number] atorvastatin 40 mg tab 40 mg 1 Tab, Oral, At Bedtime cefTRIAXone 1 Gram, IV Piggyback, [id number] cholecalciferol 1,000 unit tab 1,000 Units 1 [...] list: Medical Atrial fibrillation / SNOMED CT 47325582 / Confirmed CAD - Coronary artery disease / SNOMED CT 1513393893 / Confirmed Cardiomyopathy / SNOMED CT 331161555 / Confirmed Acute cerebrovascular accident (CVA) / SNOMED CT 952483088 / Confirmed History of obstructive sleep apnea / IMO [id number] / Confirmed HLD - Hyperlipidemia / SNOMED CT 740654396 / Confirmed HTN - Hypertension / SNOMED CT 3853970262 / Confirmed Type 2 diabetes mellitus / SNOMED CT 296809388 / Confirmed, Active Problems (20) Acute cerebrovascular [...] Gastrointestinal: Soft, Non-tender, Non-distended. Integumentary: Warm, Dry, [place]ink[place]. Neurologic: Alert, Oriented, No focal deficits. Psychiatric: [...] renal diet. - No emergent need of DATA INTEGRATION ANALYST. Will follow. If renal function continues to improve tomorrow with K within normal limits - Can be discharge. Follow up with LAMBERTO in 2 weeks @ [facility] with renal function panel and UA. documented in this encounter Plan of Treatment Not on file documented as of this encounter Visit Diagnoses Not on filedocumented in this encounter Care Teams Principal Cloud Architect Relationship Specialty Start Date End Date Marielos Amaral, POLYMER SCIENTIST [address] [address] PCP - General Nurse Practitioner 08/18/23 documented as of this encounter
--- OUTSIDE RECORDS SUMMARY | 2025-05-19 12:28 | XMS_ITS | Encounter Summary ---
Author Organization [employer] ([place], [place], [place], [place]) Address [address] [place] [address] Care Team Providers Care Rehabilitation Program Manager Name Role Phone Marielos Amaral APRN Primary Care Provider Encounter Details Date Type Department Care Team (Late st Contact Info) Description 04/12/2020 Transcribed Document [facility] Family Medicine [address] [place] [address] ProviderHaroldo MD [address] [place] [address] Social History Tobacco Use Types Packs/Day Years [...] JOYCE BrittB./Sex: 1950 Male Med Rec #: [id number] Physician: PRINCESS DOCKERY MD-GAE Financial #: [id number] Pt. Type: E Room/Bed: [facility] [place]/ Admit/Disch: 04/12/20 06:32:00 - Institution: [facility] PreOp Case Times Entry 1 In Preop 04/12/20 06:53:00 Ready for Holding n/a Room Patient Ready for n/a Surgery Patient Out of Preop 04/12/20 07:20:00 Patient Out of n/a Holding Room [facility] PreOp Case Times Audit 04/12/20 07:32:09 Pen Or Pencil Assembly Machine Operator: [id number] Modifier: [id number] <+> 1 Patient Out of Preop Finalized By: Roxana Brady, RN Document Signatures Signed By: Roxana Brady, LUIS 04/12/20 07:32 documented in this encounter Plan of Treatment Not on file documented as of this encounter Visit Diagnoses Not on filedocumented in this encounter Care Teams Rehabilitation Program Manager Relationship Specialty Start Date End Date Amaral Marielos, MACHINE DEBURRER [address] [address] PCP - General Nurse Practitioner 08/18/23 documented as of this encounter
--- OUTSIDE RECORDS SUMMARY | 2025-05-19 12:28 | XMS_ITS | Encounter Summary ---
Author Organization [employer] ([place], [place], [place], [place]) Address [address] [place] [address] Care Team Providers Care Golf Club Facer Name Role Phone Marielos Amaral KAYE Primary Care Provider Encounter Details Date Type Department Care Team (Late st Contact Info) Description 04/12/2020 Transcribed Document [facility] [place] [address] [place] [address] ProviderHaroldo MD [address] [place] [address] Social History Tobacco Use Types Packs/Day Years Used Date Smoking Tobacco: Never Assessed Sex and Gender Information Value Date Recorded Sex Assigned at Not on file Legal Sex Male 3:45 PM CDT Gender Identity Not on file Sexual Orientation Not on file documented as of this encounter Miscellaneous Notes * Cerner Conversion Note - Haroldo ProviderMD - 04/12/2020 7:58 AM CDT [address] [address] ELINA ZACKARY COOK :1950 Visit [...] needed Comments follow up as directed Where: [address] [id number]- Medications What How Much When Instructions Next [...] Tomatoes and foods made with tomatoes. ? [place] or spicy foods. ? Chocolate and peppermint. ??? Do not drink alcohol. General instructions ??? Take ruub-iwf-dnphnvl and prescription medicines only as told by [...] 12/12/2004 Document Revised: 01/18/2019 Document Reviewed: 01/18/2019 [employer] Interactive Patient Education ?? 2020 [employer]. General Anesthesia, Adult, Care After This sheet [...] activities are safe for you. ??? Take trhp-xwb-jrvutzn and prescription medicines only as told by [...] 12/29/2001 Document Revised: 05/08/2018 Document Reviewed: 05/08/2018 [employer]er Interactive Patient Education ?? 2020 Elsevier Inc. [...] Assistance with quitting is available by contacting 6-847-LSJJ-NOW. This is a free resource providing counseling, [...] was given the opportunity to ask questions. Patient/Certified Nutritionist Name: Patient/Certified Nutritionist Signature: Relationship to Patient: Clinician/Hospital Certified Nutritionist Signature: Date: documented in this encounter Plan of Treatment Not on file documented as of this encounter Visit Diagnoses Not on filedocumented in this encounter Care Teams Golf Club Facer Relationship Specialty Start Date End Date Marielos Amaral, BILLER [address] [place] [address] PCP - General Nurse Practitioner 08/18/23 documented as of this encounter
--- OUTSIDE RECORDS SUMMARY | 2025-05-19 12:28 | XMS_ITS | Encounter Summary ---
Author Organization [employer] ([place], [place], [place], [place]) Address [address] [place] [address] Care Team Providers Care Muck Boss Name Role Phone Marielos Amaral APRN Primary Care Provider [phone] Encounter Details Date Type Department Care Team (Late st Contact Info) Description 04/12/2020 Transcribed Document [facility] [place] Family Medicine [address] [place] [address] ProviderHaroldo MD [address] [place] [address] Social History Tobacco Use Types Packs/Day Years [...] JOYCE BrittB./Sex: 1950 Male Med Rec #: [id number] Physician: PRINCESS DOCKERY MD-GAE Financial #: [id number] Pt. Type: E Room/Bed: [facility] [place]/ Admit/Disch: 04/12/20 06:32:00 - Institution: [facility] Endo - Case Attendance Entry 1 Entry 2 Entry 3 Case Attendee PRINCESS DOCKERY BRISCOE, ANTHONY W. Thayer, Dena, RN -GAE Role Performed Surgeon/Proceduralist, Scrub, First Shear Operator Helper, First First Time In 04/12/20 07:32:00 04/12/20 [...] Case Attendee TOVA MOELLER STIGERS, DAVID, MD-ANS [employer]-ANS Role Performed [employer]/Nurse Director Report Anesthesiologist of Record Time In 04/12/20 07:32:00 04/12/20 07:32:00 Time Out 04/12/20 07:51:00 04/12/20 07:51:00 Procedure Esophagogastroduodenosco Esophagogastroduodenosco py, EGD w py, EGD w Radiofrequency Radiofrequency Ablation, Esophageal Ablation, Esophageal Biopsy Biopsy Other Attendee Superficial Wound Closed By: Last Modified By: Roxana Brady RN Thayer, Dena, RN 04/12/20 07:48:42 04/12/20 07:48:42 [facility] [place] [place] Endo - Case Attendance Audit 04/12/20 07:48:42 Associate Director Of Biostatistics: [id number] Modifier: [id number] 1 <+> Time Out 1 <*> Procedure [...] w Radiofrequency Ablation, Esophageal Biopsy 04/12/20 07:40:20 Associate Director Of Biostatistics: [id number] Modifier: [id number] 1 <*> Procedure Esophagogastroduodenoscopy, EGD w Radiofrequency Ablation 2 <*> Procedure Esophagogastroduodenoscopy, EGD w Radiofrequency Ablation 3 <*> Procedure Esophagogastroduodenoscopy, EGD w Radiofrequency Ablation 4 <*> Procedure Esophagogastroduodenoscopy, EGD w Radiofrequency Ablation 5 <*> Procedure Esophagogastroduodenoscopy, EGD w Radiofrequency Ablation 04/12/20 07:37:28 Associate Director Of Biostatistics: [id number] Modifier: [id number] <+> 1 Procedure <+> 2 Time In <+> 2 Procedure <+> 3 Time In <+> 3 Procedure <+> 4 Time In <+> 4 Procedure <+> 5 Time In <+> 5 Procedure [facility] Endo - Case Times Entry 1 Patient In Room Time 04/12/20 07:32:00 Out Room Time 04/12/20 07:51:00 Anesthesia Start Time 04/12/20 07:32:00 Stop Time 04/12/20 07:48:00 Surgery / Procedure Times Start Time 04/12/20 07:37:00 Stop Time 04/12/20 07:48:00 Last Modified By: Roxana Brady RN 04/12/20 07:48:40 [facility] Endo - Case Times Audit 04/12/20 07:48:40 Associate Director Of Biostatistics: [id number] Modifier: [id number] <+> 1 Out Room Time <+> 1 Stop Time <+> 1 Stop Time 04/12/20 07:37:43 Associate Director Of Biostatistics: [id number] Modifier: [id number] <+> 1 Start Time [facility] Endo - Cautery Entry 1 ESU Identification Cautery Type Other Cautery Type 90 degree RFA Comments ID Number [id number] ID Type Serial Number Cautery Settings ESU [...] - Fire Risk Assessment Audit 04/12/20 07:35:37 Associate Director Of Biostatistics: [id number] Modifier: [id number] <+> 1 Fire Risk Assessment Complete E Endo - General Case Bow Maker Production 1 Case Information OR Endo 01 [facility] [...] Entry 1 Medication/Irrigant Mucomyst 200mg/1ml 10ml - [id number] Route of Esophageal Wash Administration Dose Dose [...] Endo - Patient Positioning Audit 04/12/20 07:40:20 Associate Director Of Biostatistics: [id number] Modifier: [id number] 1 <*> Procedure Esophagogastroduodenoscopy, EGD w Radiofrequency [...] Endo - Sign Out Audit 04/12/20 07:50:57 Associate Director Of Biostatistics: [id number] Modifier: [id number] <+> 1 RN Sign Out Signature Date/Time [...] Endo - Surgical Procedures Audit 04/12/20 07:48:56 Associate Director Of Biostatistics: [id number] Modifier: [id number] 1 <*> Procedure Esophagogastroduodenoscopy 1 <+> Stop 2 <*> Procedure EGD w Radiofrequency Ablation 2 <+> Stop 3 <*> Procedure Esophageal Biopsy 3 <+> Stop 04/12/20 07:48:27 Associate Director Of Biostatistics: [id number] Modifier: [id number] 1 <*> Procedure Esophagogastroduodenoscopy 2 <*> Procedure EGD w Radiofrequency Ablation 3 <*> Procedure Esophageal Biopsy 04/12/20 07:40:16 Associate Director Of Biostatistics: [id number] Modifier: [id number] <+> 3 Procedure <+> 3 Primary Procedure <+> 3 Primary Surgeon <+> 3 Specialty <+> 3 Start <+> 3 Wound Class <+> 3 Anesthesia Type 04/12/20 07:38:44 Associate Director Of Biostatistics: [id number] Modifier: [id number] 2 <*> Procedure EGD w Radiofrequency Ablation [...] Endo - Time Out Audit 04/12/20 07:40:21 Associate Director Of Biostatistics: [id number] Modifier: [id number] 1 <*> Procedure to be Performed Esophagogastroduodenoscopy, EGD w Radiofrequency Ablation 04/12/20 07:39:25 Associate Director Of Biostatistics: [id number] Modifier: [id number] 1 <*> Procedure to be Performed Esophagogastroduodenoscopy, EGD w Radiofrequency Ablation Case Comments <None> Finalized By: Roxana Brady RN Document Signatures Signed By: Roxana Brady RN 04/12/20 07:51 documented in this encounter Plan of Treatment Not on file documented as of this encounter Visit Diagnoses Not on filedocumented in this encounter Care Teams Muck Boss Relationship Specialty Start Date End Date Marielos Amaral, MOLASSES COLORING OPERATOR [address] [address] PCP - General Nurse Practitioner 08/18/23 documented as of this encounter
--- OUTSIDE RECORDS SUMMARY | 2025-05-19 12:28 | XMS_ITS | Encounter Summary ---
Author Organization [employer] ([place], [place], [place], [place]) Address [address] [place] [address] Care Team Providers Care Senior Application Software Engineer Name Role Phone Marielos Amaral KAYE Primary Care Provider Encounter Details Date Type Department Care Team (Late st Contact Info) Description 01/20/2019 Transcribed Document [facility] [place] [address] [place] [address] ProviderHaroldo MD [address] [place] [address] Social History Tobacco Use Types Packs/Day Years [...] Document Reviewed: 12/01/2012 ExitCare? Patient Information ?2014 [address]. This information is not intended to replace [...] including vitamins, herbs, eye drops, creams, and gjwy-zll-xotygvv medicines. ? Previous problems you or members [...] Document Reviewed: 08/25/2013 ExitCare? Patient Information ?2014 [address]. This information is not intended to replace [...] including vitamins, herbs, eye drops, creams, and womg-uki-yuryrsm medicines. ??? Previous problems you or members [...] 07/13/2014 Document Revised: 10/13/2015 Document Reviewed: 07/13/2014 [employer] Interactive Patient Education ? 2017 [employer]+. documented in this encounter Plan of Treatment Not on file documented as of this encounter Visit Diagnoses Not on filedocumented in this encounter Care Teams Senior Application Software Engineer Relationship Specialty Start Date End Date Marielos Amaral APRN [address] [address] PCP - General Nurse Practitioner 08/18/23 documented as of this encounter
--- OUTSIDE RECORDS SUMMARY | 2025-05-19 12:28 | XMS_ITS | Encounter Summary ---
Author Organization [employer] ([place], [place], [place], [place]) Address [address] [place] [address] Care Team Providers Care Cut Out Marker Name Role Phone Marielos Amaral KAYE Primary Care Provider Encounter Details Date Type Department Care Team (Late st Contact Info) Description 10/17/2019 Transcribed Document [facility] Family Medicine [address] [place] [address] ProviderHaroldo MD [address] [place] [address] Social History Tobacco Use Types Packs/Day Years Used Date Smoking Tobacco: Never Assessed Sex and Gender Information Value Date Recorded Sex Assigned at Not on file Legal Sex Male 3:45 PM CDT Gender Identity Not on file Sexual Orientation Not on file documented as of this encounter Miscellaneous Notes * Cerner Conversion Note - Historical ProviderMD - 10/17/2019 6:15 AM FIXED WING AIRCRAFT CREW CHIEF Height and Weight, Routine Entered On: 10/17/2019 6:15 EST Performed On: 10/17/2019 6:15 EST by Emily Rich [facility] COORD Height and Weight, Routine Routine Weight Source : Bed scale Routine Weight Entry Format : Metric Routine Weight, Kilograms : 85.1 kg(Converted to: 187 lb 10 oz) Routine Weight Calculation : 85.1 kg Height Source : Stated Height Entry Format : Harris Height, Feet : 5 ft Height, Inches [...] filedocumented in this encounter Care Teams Cut Out Marker Relationship Specialty Start Date End Date Marielos Amaral, CHIEF OF HARBOR PATROL [address] [phone] PCP - General Nurse Practitioner 08/18/23 documented as of this encounter
--- OUTSIDE RECORDS SUMMARY | 2025-05-19 12:28 | XMS_ITS | Encounter Summary ---
Author Organization [employer] ([place], [place], [place], [place]) Address [address] [place] [address] Care Team Providers Care Msws Name Role Phone Marielos Amaral KAYE Primary Care Provider Encounter Details Date Type Department Care Team (Late st Contact Info) Description 10/18/2019 Transcribed Document [facility] [place] [address] [place] [address] ProviderHaroldo MD [address] [place] [address] Social History Tobacco Use Types Packs/Day Years Used Date Smoking Tobacco: Never Assessed Sex and Gender Information Value Date Recorded Sex Assigned at Not on file Legal Sex Male 3:45 PM CDT Gender Identity Not on file Sexual Orientation Not on file documented as of this encounter Miscellaneous Notes * Cerner Conversion Note - Haroldo ProviderMD - 10/18/2019 8:04 AM LITHOSTRIPPER UM Authorization Entered On: 10/18/2019 8:04 EST Performed On: 10/18/2019 8:04 EST by DIONE REY Composing Machine Operator Primary Insurance Authorization Authorization and Policy Numbers : Insurance 1 Health Plan: [employer] [place] PL[employer] HMO Policy Number: [id number] Authorization Number: Insurance Primary Name : [employer] GOLD PLUS HMO Policy Number: [id number] Authorization Status-Primary : Notification only Auth/Referral Contact Name-Primary : Wenceslao R Authorization Number-Primary : [id number] Authorized Service Begin Date-Primary : 10/14/2019 EST Authorization Comments-Primary : inpt approved per email from Wenceslao Schmidt with [employer] auth# [id number] Historical Authorization Comments-Primary : Comment 1: ref# per star notes (Mary Haynes, Rn-Utilization Review 10/15/2019 08:57) Comment 2: clinical faxed per norma for ip auth (Mary Haynes, Rn-Utilization Review 10/15/2019 08:55) DIONE REY, Composing Machine Operator - 10/18/2019 8:04 EST Electronically signed by Brittany [facility] Conversion Gold Leaf Laborer Cerner at 01/24/2023 10:23 AM CDT documented in this encounter Plan of Treatment Not on file documented as of this encounter Visit Diagnoses Not on filedocumented in this encounter Care Teams Msws Relationship Specialty Start Date End Date AmaralRosettee, POWER GENERATION PLANT OPERATOR [address] [address] PCP - General Nurse Practitioner 08/18/23 documented as of this encounter
--- OUTSIDE RECORDS SUMMARY | 2025-05-19 12:28 | XMS_ITS | Encounter Summary ---
Author Organization [employer] ([place], [place], [place], [place]) Address [address] [place] [address] Care Team Providers Care Gang Drill Operator Name Role Phone Marielos Amaral APRN Primary Care Provider [phone] Encounter Details Date Type Department Care Team (Late st Contact Info) Description 10/17/2019 Transcribed Document [facility] [place] Medicine [address] [place] [address] ProviderHaroldo MD [address] [place] [address] Social History Tobacco Use Types Packs/Day Years Used Date Smoking Tobacco: Never Assessed Sex and Gender Information Value Date Recorded Sex Assigned at Not on file Legal Sex Male 3:45 PM CDT Gender Identity Not on file Sexual Orientation Not on file documented as of this encounter Miscellaneous Notes * Cerner Conversion Note - Haroldo ProviderMD - 10/17/2019 1:30 PM FREEZER TUNNEL OPERATOR [facility] [address] [place] [id number] DEION ANTOINE :1950 Visit Time:10/14/2019 Your Visit Summary Your Care Team Admitting Physician - PETRA TORRES MD-INT PHY, UNKNOWN FANY MCCRACKEN MD Attending Physician - PETRA TORRES MD-INT FANY MCCRACKEN MD Primary Care Physician - KATELYN MKCEON MD-[facility] Referring Physician - FANY MCCRACKEN MD [...] (carb controlled) Follow-Up Appointments Follow Up with [facility] Cardiology When Within 1 to 2 weeks Comments for stress test Follow Up with Follow up with primary care provider When Within 2 weeks Comments check TSH Follow Up with ALBERTO RIZVI When Within 6 weeks Comments Patient should call for a follow up appointment with [facility] Neurology. Where: [address] [place] [address] [facility] (1) Warfarin Instructions Notify Provider of Signs/Symptoms [...] 12/26/2017 Document Revised: 12/26/2017 Document Reviewed: 12/26/2017 [employer] Patient Education ?? 2019 [employer] Stroke Prevention Some medical conditions and [...] lot or have excessive sleepiness. ??? Take jlnc-ski-ucgxvis and prescription medicines only as told by [...] more information For more information, visit: ??? [place] Stroke Association: www.strokeassociation.org ??? National Stroke Association: [...] 10/30/2005 Document Revised: 10/28/2017 Document Reviewed: 10/28/2017 [employer] Interactive Patient Education ?? 2019 [employer]. nitroglycerin (oral/sublingual) ([place] troe GLI ser in [...] may report side effects to FDA at 5-975-LTG-6853. What other drugs will affect nitroglycerin? Tell your doctor about all your current medicines, especially: ?? aspirin, heparin; ?? medicine used to treat blood clots; ?? blood pressure medication; or ?? ergot medicine--dihydroergotamine, ergotamine, ergonovine, methylergonovine. This list is not complete and many other drugs may affect nitroglycerin. This includes prescription and ftoj-zkm-ekmxmrw medicines, vitamins, and herbal products. Not all [...] to ensure that the information provided by [employer] ('[employer]') is accurate, up-to-date, and complete, but no guarantee is made to that effect. Drug information contained herein may be time sensitive. [employer] information has been compiled for use by healthcare practitioners and consumers in the [place] and therefore [employer] does not warrant that uses outside of the [place] are appropriate, unless specifically indicated otherwise. [employer] drug information does not endorse drugs, diagnose patients or recommend therapy. [place] drug information is an informational resource designed [...] effective or appropriate for any given patient. [employer] does not assume any responsibility for any aspect of healthcare administered with the aid of information [employer] provides. The information contained herein is not intended to cover all possible uses, directions, precautions, warnings, drug interactions, allergic reactions, or adverse effects. If you have questions about the drugs you are taking, check with your doctor, nurse or pharmacist. Copyright 3138-0739 [employer] Version: 15.01. Revision Date: 08/12/2019. levothyroxine (oral/injection) (VERA dunacne esperanza ASHLY een) Levoxyl, Synthroid, Tirosint, Unithroid [...] may report side effects to FDA at 2-128-LGJ-8898. What other drugs will affect levothyroxine? Many [...] can affect levothyroxine. This includes prescription and iayz-gsm-unmijrj medicines, vitamins, and herbal products. Not all [...] to ensure that the information provided by [employer] ('[employer]') is accurate, up-to-date, and complete, but no guarantee is made to that effect. Drug information contained herein may be time sensitive. [employer] information has been compiled for use by healthcare practitioners and consumers in the [place] and therefore [employer] does not warrant that uses outside of the [place] are appropriate, unless specifically indicated otherwise. [employer] drug information does not endorse drugs, diagnose patients or recommend therapy. [employer] drug information is an informational resource designed [...] effective or appropriate for any given patient. [employer] does not assume any responsibility for any aspect of healthcare administered with the aid of information [employer] provides. The information contained herein is not intended to cover all possible uses, directions, precautions, warnings, drug interactions, allergic reactions, or adverse effects. If you have questions about the drugs you are taking, check with your doctor, nurse or pharmacist. Copyright 8620-8762 [employer] Version: 13.04. Revision Date: 05/05/2019. Emergency Awareness [...] Assistance with quitting is available by contacting 7-908-NUGB-NOW. This is a free resource providing counseling, [...] range between ( 0.0 and 7.0 ) [place] #: 0.73 K/uL -- Normal range between ( 0.16 and 1.00 ) [place] #: 0.12 x10(3)/uL -- Normal range between ( 0.00 and 0.80 ) [place] %: 8.7 % -- Normal range between [...] was given the opportunity to ask questions. Patient/Petroleum Laboratory Technician Name: Patient/Petroleum Laboratory Technician Signature: Relationship to Patient: Clinician/Hospital Petroleum Laboratory Technician Signature: Date: Electronically signed by Brittany, [facility] Conversion Sawmill Supervisor Cerner at 01/24/2023 10:35 AM CDT documented in this encounter Plan of Treatment Not on file documented as of this encounter Visit Diagnoses Not on filedocumented in this encounter Care Teams Gang Drill Operator Relationship Specialty Start Date End Date Marielos Amaral, MILK ROUTE SUPERVISOR [address] [place] [address] PCP - General Nurse Practitioner 08/18/23 documented as of this encounter
--- OUTSIDE RECORDS SUMMARY | 2025-05-19 12:28 | XMS_ITS | Encounter Summary ---
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 Biopsies at that time [...] Dr. Axel Hamlin Electronically signed by Brittany [facility] Conversion Second Crusher Cerner at 01/24/2023 10:38 AM CDT documented in this encounter Plan of Treatment Not on file documented as of this encounter Visit Diagnoses Not on filedocumented in this encounter Care Teams Meat Washer Relationship Specialty Start Date End Date Marielos Amaral APRN [address] [address] PCP - General Nurse Practitioner 08/18/23 documented as of this encounter
--- OUTSIDE RECORDS SUMMARY | 2025-05-19 12:28 | XMS_ITS | Encounter Summary ---
Author Organization [employer] ([place], [place], [place], [place]) Address [address] [place] [address] Care Team Providers Care Real Estate Listing Consultant Name Role Phone Marielos Amaral KAYE Primary Care Provider [phone] Encounter Details Date Type Department Care Team (Late st Contact Info) Description 04/12/2020 Transcribed Document [facility] [place] [address] [place] [address] ProviderHaroldo MD [address] [place] [address] Social History Tobacco Use Types Packs/Day Years [...] Source : Stated Height Entry Format : [place] Height, Feet : 5 ft(Converted to: 152 cm, 60 Inch) Height, Inches : 10 Inch(Converted to: 0 ft 10 Inch, 25.40 cm) Clinical Height : 177.8 cm Weight Source : Standing scale Weight Entry Format : [place] Clinical Dosing Weight : 88.64 kg Weight, Pounds : 195 lb Body Surface Area (BSA) : 2.07 m2 Body Mass Index : 28 kg/m2 (HI) [place] Body Weight : 72 kg Roxana Brady [...] Roxana Brady RN - 04/12/2020 7:05 EDT [place] Suicide Severity Rating Scale (C-SSRS) CSSRS Past [...] Clint Legal Guardian : No Support Person/Patient Aircraft Cleaning Supervisor : Yes Support Person/Pt Rep Name : Enriqueta - Contact Password : melanie Support Person/Pt Rep Contact Information : [phone] Want Family/Rep/Phys Notified of Admit : Yes Name/Contact Info Fam/Rep Notified Adm : na Name/Contact Info Physician Notified Adm : Axel Hamlin Emergency Contact #1 : Enriqueta Carrasco Emergency Contact #1 Emergency Contact #1 Relationship : spouse Emergency Contact #2 : na Emergency Contact #2 Phone Number : na Emergency Contact #2 Relationship : na Primary Language : [place] Preferred Communication Mode : Verbal Communication Barrier : None Ic Design Manager Needed : No Roxana Brady RN - [...] ABCs Fall Injury Risk Identification : None TSARK Hx Falls Immediate/Within 3 Months : No Stark Secondary Diagnosis : No STARK Use of Ambulatory Aid : None STARK IV Therapy or IV Access : Yes Stark Gait/Transferring : Normal, bedrest, immobile Stark Mental Status : Oriented to own ability Stark Fall Risk Score : 20 STARK Fall Scale Risk Level : 0-24 Low Risk Minor Hill Fall Interventions : Call device within reach, [...] on filedocumented in this encounter Care Teams Real Estate Listing Consultant Relationship Specialty Start Date End Date Marielos Amaral APRN [address] [address] PCP - General Nurse Practitioner 08/18/23 documented as of this encounter
--- OUTSIDE RECORDS SUMMARY | 2025-05-19 12:28 | XMS_ITS | Encounter Summary ---
Author Organization [employer] ([place], [place], [place], [place]) Address [address] [place] [address] Care Team Providers Care Security System Installer Name Role Phone Marielos Amaral KAYE Primary Care Provider Encounter Details Date Type Department Care Team (Late st Contact Info) Description 02/06/2019 Transcribed Document [facility] Family Medicine [address] [place] [address] ProviderHaroldo MD [address] [place] [address] Social History Tobacco Use Types Packs/Day Years [...] 02/06/2019 8:04 EDT by OFELIA ROY Patient Band Saw Operator Cake Cutting Phone Call for Consults Consult Phone Call/Page Attempt : First call Physician Requesting Consult : SAYDA TORRES RES-SYDNI Physician Requested for Consult : PRIYA JIANG MD-NEU Provider Service Notified Name : Neurology Physician Covering for Consult : PRIYA JIANG MD-NEU Date and Time Call Returned : 02/06/2019 8:02 EDT OFELIA ROY, Patient Band Saw Operator Cake Cutting - 02/06/2019 8:04 EDT documented in this encounter Plan of Treatment Not on file documented as of this encounter Visit Diagnoses Not on filedocumented in this encounter Care Teams Security System Installer Relationship Specialty Start Date End Date Marielos Amaral, HOT STONE SETTER [address] [phone] PCP - General Nurse Practitioner 08/18/23 documented as of this encounter
--- OUTSIDE RECORDS SUMMARY | 2025-05-19 12:28 | XMS_ITS | Encounter Summary ---
Author Organization [employer] ([place], [place], [place], [place]) Address [address] [place] [address] Care Team Providers Care Clinical Trial Assistant Name Role Phone Marielos Amaral KAYE Primary Care Provider Encounter Details Date Type Department Care Team (Late st Contact Info) Description 02/06/2019 Transcribed Document [facility] [place] [address] [place] [address] ProviderHaroldo MD [address] [place] [address] Social History Tobacco Use Types Packs/Day Years [...] 15:28 PT Additional Treatment Ordered By: ARYAN GSOS, JEAN Active Diagnoses : 02/05/2019 00:00 Ataxia, unspecified 02/05/2019 00:00 Weakness Admission Date : 02/05/2019 23:59 Assisted by, PT : tool repair technician/aide Personal Devices : Personal Devices No Devices Recorded Assistive Devices : Assistive Devices No Devices Recorded FAYN FREEMAN PT - 02/07/2019 9:03 EDT General [...] FANY FREEMAN, PT - 02/07/2019 9:03 EDT Retirement Goals Stairs LTG Grid Goal #1 Device [...] filedocumented in this encounter Care Teams Clinical Trial Assistant Relationship Specialty Start Date End Date Marielos Amaral APRN [address] [address] PCP - General Nurse Practitioner 08/18/23 documented as of this encounter
--- OUTSIDE RECORDS SUMMARY | 2025-05-19 12:28 | XMS_ITS | Encounter Summary ---
Author Organization [employer] ([place], [place], [place], [place]) Address [address] [place] [address] Care Team Providers Care Audit Intern Name Role Phone Marielos Amaral APRN Primary Care Provider Encounter Details Date Type Department Care Team (Late st Contact Info) Description 04/12/2020 Transcribed Document [facility] [place] [address] [place] [address] ProviderHaroldo MD [address] [place] [address] Social History Tobacco Use Types Packs/Day Years [...] JOYCE BrittB./Sex: 1950 Male Med Rec #: [id number] Physician: PRINCESS DOCKERY MD-GAE Financial #: [id number] Pt. Type: E [facility] [facility] Admit/Disch: 04/12/20 06:32:00 - Institution: [facility] PACU Case Times Entry 1 In PACU I 04/12/20 07:53:00 Ready for PACU 04/12/20 08:26:00 Discharge Discharge from PACU 04/12/20 08:29:00 I [facility] PACU Case Times Audit 04/12/20 08:30:01 Manager Property: [id number] Modifier: [id number] <+> 1 Ready for PACU Discharge <+> 1 Discharge from PACU I Finalized By: Roxana Brady, RN Document Signatures Signed By: Roxana Brady, LUIS 04/12/20 08:30 Electronically signed by Donato Soto Conversion Airflight Attendants Supervisor Cerner at 01/24/2023 10:22 AM CDT documented in this encounter Plan of Treatment Not on file documented as of this encounter Visit Diagnoses Not on filedocumented in this encounter Care Teams Audit Intern Relationship Specialty Start Date End Date Marielos Amaral, CHEESE PRODUCTION SUPERVISOR [address] [phone] PCP - General Nurse Practitioner 08/18/23 documented as of this encounter
--- OUTSIDE RECORDS SUMMARY | 2025-05-19 12:28 | XMS_ITS | Encounter Summary ---
Author Organization [employer] ([place], [place], [place], [place]) Address [address] [place] [address] Care Team Providers Care Ball Mill Mixer Name Role Phone Marielos Amaral APRN Primary Care Provider Encounter Details Date Type Department Care Team (Late st Contact Info) Description 01/20/2019 Transcribed Document [facility] [place] Family Medicine [address] [place] [address] ProviderHaroldo MD [address] [place] [address] Social History Tobacco Use Types Packs/Day Years [...] JOYCE /Sex: 1950 Male Med Rec #: [id number] Physician: PRINCESS DOCKERY MD-GAE Financial #: [id number] Pt. Type: O Room/Bed: N/18 Admit/Disch: 01/20/19 12:15:00 - Institution: [facility] PACU Case Times Entry 1 In PACU I 01/20/19 14:28:00 Ready for PACU 01/20/19 15:04:00 Discharge Discharge from PACU 01/20/19 15:04:00 I [facility] PACU Case Times Audit 01/20/19 15:04:37 Display And Banner Designer: KELVIN Modifier: KELVIN <+> 1 Ready for PACU Discharge <+> 1 Discharge from PACU I Finalized By: EZEKIEL CARMICHAEL, RN Document Signatures Signed By: EZEKIEL CARMICHAEL, RN 01/20/19 15:04 Electronically signed by Brittany [facility] Conversion Associate Director Of Sales Cerner at 01/24/2023 10:31 AM CDT documented in this encounter Plan of Treatment Not on file documented as of this encounter Visit Diagnoses Not on filedocumented in this encounter Care Teams Ball Mill Mixer Relationship Specialty Start Date End Date Marielos Amaral, AUTOMOTIVE PORTER [address] [phone] PCP - General Nurse Practitioner 08/18/23 documented as of this encounter
--- OUTSIDE RECORDS SUMMARY | 2025-05-19 12:28 | XMS_ITS | Encounter Summary ---
Author Organization [employer] ([place], [place], [place], [place]) Address [address] [place] [address] Care Team Providers Care Caponizer Name Role Phone Marielos Amaral KAYE Primary Care Provider Encounter Details Date Type Department Care Team (Late st Contact Info) Description 10/17/2019 Transcribed Document [facility] [place] Family Medicine [address] [place] [address] ProviderHaroldo MD [address] [place] [address] Social History Tobacco Use Types Packs/Day Years Used Date Smoking Tobacco: Never Assessed Sex and Gender Information Value Date Recorded Sex Assigned at Not on file Legal Sex Male 3:45 PM CDT Gender Identity Not on file Sexual Orientation Not on file documented as of this encounter Miscellaneous Notes * Cerner Conversion Note - Haroldo ProviderMD - 10/17/2019 2:11 PM LEAD ASSISTANT MANAGER Nursing Discharge Summary Entered On: 10/17/2019 14:13 [...] - 10/17/2019 14:11 EST Electronically signed by Maria [facility] Conversion Children'S Author Cerner at 01/24/2023 10:34 AM CDT documented in this encounter Plan of Treatment Not on file documented as of this encounter Visit Diagnoses Not on filedocumented in this encounter Care Teams Caponizer Relationship Specialty Start Date End Date Marielos Amaral, MANAGER MBA [address] [place] [address] PCP - General Nurse Practitioner 08/18/23 documented as of this encounter
--- OUTSIDE RECORDS SUMMARY | 2025-05-19 12:28 | XMS_ITS | Encounter Summary ---
Author Organization [employer] ([place], [place], [place], [place]) Address [address] [place] [address] Care Team Providers Care Afloat Cryptologic Manager Name Role Phone Marielos Amaral KAYE Primary Care Provider [phone] Encounter Details Date Type Department Care Team (Late st Contact Info) Description 04/12/2020 Transcribed Document [facility] [place] Family Medicine [address] [place] [address] ProviderHaroldo MD [address] [place] [address] Social History Tobacco Use Types Packs/Day Years [...] Tomatoes and foods made with tomatoes. ? Camano or spicy foods. ? Chocolate and peppermint. ??? Do not drink alcohol. General instructions ??? Take fsdl-yvb-bqjldac and prescription medicines only as told by [...] 12/12/2004 Document Revised: 01/18/2019 Document Reviewed: 01/18/2019 [employer] Interactive Patient Education ? 2020 [employer] General Anesthesia, Adult, Care After This [...] activities are safe for you. ??? Take dwfw-tru-latnris and prescription medicines only as told by [...] 12/29/2001 Document Revised: 05/08/2018 Document Reviewed: 05/08/2018 [employer] Interactive Patient Education ? 2020 [employer]. ESOPHAGOGASTRODUODENOSCOPY Care After Read the instructions outlined [...] on filedocumented in this encounter Care Teams Afloat Cryptologic Manager Relationship Specialty Start Date End Date Marielos Amaral APRN [address] [address] PCP - General Nurse Practitioner 08/18/23 documented as of this encounter
--- OUTSIDE RECORDS SUMMARY | 2025-05-19 12:28 | XMS_ITS | Encounter Summary ---
Author Organization [employer] ([place], [place], [place], [place]) Address [address] [place] [address] Care Team Providers Care Water Supervisor Name Role Phone Marielos Amaral KAYE Primary Care Provider [phone] Encounter Details Date Type Department Care Team (Late st Contact Info) Description 02/05/2019 Transcribed Document [facility] [place] [address] [place] [address] ProviderHaroldo MD [address] [place] [address] Social History Tobacco Use Types Packs/Day Years [...] to right arm and loss of balance property coordinator strength equal bilaterally decreased sensation to right arm and right leg no facial droop or slurred speech equal bilateral lower extremities Merritt Guzman RN - 02/05/2019 18:55 EDT DCP GENERIC CODE Tracking Acuity : 2 - Emergent Tracking Group : [facility] ED Merritt Guzman RN - 02/05/2019 18:55 [...] 02/05/2019 19:01:21 EDT) Problems(Active) Angina (SNOMED CT :773264831 ) Name of Problem: Angina ; Recorder: RAVEN REILLY RN; Confirmation: Confirmed ; Classification: Patient Stated ; Code: [id number] ; Contributor System: PowerChart ; Last Updated: 07/20/2014 9:33 EDT ; Life Cycle Date: 07/20/2014 ; Life Cycle Status: Active ; Vocabulary: SNOMED CT Coronary artery disease (SNOMED CT :1033256064 ) Name of Problem: Coronary artery disease ; Recorder: RAVEN REILLY RN; Confirmation: Confirmed ; Classification: Patient Stated ; Code: [id number] ; Contributor System: PowerChart ; Last Updated: 07/20/2014 9:33 EDT ; Life Cycle Date: 07/20/2014 ; Life Cycle Status: Active ; Vocabulary: SNOMED CT Diabetes mellitus type II (SNOMED CT :21636601 ) Name of Problem: Diabetes mellitus type II ; Recorder: RAVEN REILLY RN; Confirmation: Confirmed ; Classification: Patient Stated ; Code: 80206095 ; Contributor System: MarkerlyChart ; Last Updated: 07/20/2014 9:35 EDT ; Life Cycle Date: 07/20/2014 ; Life Cycle Status: Active ; Vocabulary: SNOMED CT Enlarged prostate (SNOMED CT :070335257 ) Name of Problem: Enlarged prostate ; Recorder: RAVEN REILLY RN; Confirmation: Confirmed ; Classification: Patient Stated ; Code: 735418263 ; Contributor System: PowerChart ; Last Updated: 07/20/2014 9:34 EDT ; Life Cycle Date: 07/20/2014 ; Life Cycle Status: Active ; Vocabulary: SNOMED CT GERD - Gastro-esophageal reflux disease (SNOMED CT :2147455580 ) Name of Problem: GERD - Gastro-esophageal reflux disease ; Recorder: RAVEN REILLY RN; Confirmation: Confirmed ; Classification: Patient Stated ; Code: 5411670414 ; Contributor System: PowerChart ; Last Updated: 07/20/2014 9:34 EDT ; Life Cycle Date: 07/20/2014 ; Life Cycle Status: Active ; Vocabulary: SNOMED CT Heart failure (SNOMED CT :583491566 ) Name of Problem: Heart failure ; Recorder: RAVEN REILLY RN; Confirmation: Confirmed ; Classification: Patient Stated ; Code: 418792876 ; Contributor System: PowerChart ; Last Updated: 07/20/2014 9:33 EDT ; Life Cycle Date: 07/20/2014 ; Life Cycle Status: Active ; Vocabulary: SNOMED CT Heart murmur (SNOMED CT :396893868 ) Name of Problem: Heart murmur ; Recorder: RAVEN REILLY RN; Confirmation: Confirmed ; Classification: Patient Stated ; Code: 789045749 ; Contributor System: PowerChart ; Last Updated: 07/20/2014 9:33 EDT ; Life Cycle Date: 07/20/2014 ; Life Cycle Status: Active ; Vocabulary: SNOMED CT History of obstructive sleep apnea (IMO :11920032 ) Name of Problem: History of obstructive sleep apnea ; Recorder: SYSTEM, SYSTEM; Confirmation: Confirmed ; Classification: Medical ; Code: 13708399 ; Last Updated: 01/20/2019 12:39 EDT ; Life Cycle Date: 01/20/2019 ; Life Cycle Status: Active ; Vocabulary: IMO Hyperlipidemia (SNOMED CT :58521939 ) Name of Problem: Hyperlipidemia ; Recorder: RAVEN REILLY RN; Confirmation: Confirmed ; Classification: Patient Stated ; Code: 79602786 ; Contributor System: PowerChart ; Last Updated: 09/03/2017 13:38 EST ; Life Cycle Date: 07/20/2014 ; Life Cycle Status: Active ; Vocabulary: SNOMED CT Hypertension (SNOMED CT :73752785 ) Name of Problem: Hypertension ; Recorder: RAVEN REILLY RN; Confirmation: Confirmed ; Classification: Patient Stated ; Code: 15270345 ; Contributor System: PowerChart ; Last Updated: 07/20/2014 9:33 EDT ; Life Cycle Date: 07/20/2014 ; Life Cycle Status: Active ; Vocabulary: SNOMED CT Impaired vision (SNOMED CT :19237123 ) Name of Problem: Impaired vision ; Recorder: RAVEN REILLY RN; Confirmation: Confirmed ; Classification: Patient Stated ; Code: 69602826 ; Contributor System: PowerChart ; Last Updated: 07/20/2014 9:32 EDT ; Life Cycle Date: 07/20/2014 ; Life Cycle Status: Active ; Vocabulary: SNOMED CT Migraine (SNOMED CT :76638468 ) Name of Problem: Migraine ; Recorder: RAVEN REILLY RN; Confirmation: Confirmed ; Classification: Patient Stated ; Code: 25692011 ; Contributor System: PowerChart ; Last Updated: 07/20/2014 9:35 EDT ; Life Cycle Date: 07/20/2014 ; Life Cycle Status: Active ; Vocabulary: SNOMED CT Stented coronary artery (SNOMED CT :4182718244 ) Name of Problem: Stented coronary artery ; Recorder: RAVEN REILLY RN; Confirmation: Confirmed ; Classification: Patient Stated ; Code: 1993129624 ; Contributor System: Markerly ; Last Updated: 07/20/2014 9:33 EDT ; Life Cycle Date: 07/20/2014 ; Life Cycle Status: Active ; Vocabulary: SNOMED CT Diagnoses(Active) Weakness Date: 02/05/2019 ; Diagnosis Type: Reason For Visit ; Confirmation: Complaint of ; Clinical Dx: Weakness ; Classification: Medical ; Clinical Service: Emergency medicine ; Code: PNED ; Probability: 0 ; Diagnosis Code: [id number] ED Height and Weight Height Source : Stated Height Entry Format : [place] Height, Feet : 5 ft(Converted to: 152 cm, 60 Inch) Height, Inches : 9 Inch(Converted to: 0 ft 9 Inch, 22.86 cm) Clinical Height : 175.26 cm Weight Source, ED : Critical estimated dosing weight Weight Entry Format : [place] Weight, Pounds : 175 lb Clinical Dosing Weight : 79.55 kg Body Surface Area (BSA) : 1.95 m2 Body Mass Index : 25.9 kg/m2 (HI) [place] Body Weight (IBW) : 69.73 kg Merritt Guzman, LUIS - 02/05/2019 18:55 EDT documented in this encounter Plan of Treatment Not on file documented as of this encounter Visit Diagnoses Not on filedocumented in this encounter Care Teams Water Supervisor Relationship Specialty Start Date End Date Marielos Amaral, DIRECTOR CORPORATE SECURITY [address] [address] PCP - General Nurse Practitioner 08/18/23 documented as of this encounter
--- OUTSIDE RECORDS SUMMARY | 2025-05-19 12:28 | XMS_ITS | Encounter Summary ---
Author Organization [employer] ([place], [place], [place], [place]) Address [address] [place] [address] Care Team Providers Care Anthropology Lecturer Name Role Phone Marielos Amaral MEDICAL INFORMATION SPECIALIST Primary Care Provider Encounter Details Date Type Department Care Team (Late st Contact Info) Description 02/06/2019 Transcribed Document [facility] [place] [address] [place] [address] ProviderHaroldo MD [address] [place] [address] Social History Tobacco Use Types Packs/Day Years [...] 02/06/2019 9:37 EDT Electronically signed by Brittany [facility] Conversion Weapons Specialist Cerner at 01/24/2023 10:23 AM CDT documented in this encounter Plan of Treatment Not on file documented as of this encounter Visit Diagnoses Not on filedocumented in this encounter Care Teams Anthropology Lecturer Relationship Specialty Start Date End Date Marielos Amaral, KAYE [address] [phone] PCP - General Nurse Practitioner 08/18/23 documented as of this encounter
--- OUTSIDE RECORDS SUMMARY | 2025-05-19 12:28 | XMS_ITS | Encounter Summary ---
Author Organization [employer] ([place], [place], [place], [place]) Address [address] [place] [address] Care Team Providers Care Compounder Flavorings Name Role Phone Marielos Amaral KAYE Primary Care Provider Encounter Details Date Type Department Care Team (Late st Contact Info) Description 10/18/2019 Transcribed Document [facility] [place] [address] [place] [address] ProviderHaroldo MD [address] [place] [address] Social History Tobacco Use Types Packs/Day Years Used Date Smoking Tobacco: Never Assessed Sex and Gender Information Value Date Recorded Sex Assigned at Not on file Legal Sex Male 3:45 PM CDT Gender Identity Not on file Sexual Orientation Not on file documented as of this encounter Miscellaneous Notes * Cerner Conversion Note - Haroldo ProviderMD - 10/18/2019 8:56 AM HOME VISITOR Discharge Summary, PT Entered On: 10/18/2019 8:57 EST Performed On: 10/18/2019 8:56 EST by JACQUELYN KIM, PT Discharge Summary Reason for Discharge : Discharged from hospital Discharged to, Therapy : Home, with family care Discharge Summary Comment, PT : As of 10/17/2019: Patient was modified independent [id number] and ambulated 300' no AD with supervision [...] JACQUELYN KIM, PT - 10/18/2019 8:56 EST Clinical Applications Manager Goals Ambulation LTG Grid Goal #1 Device : None Distance : 400' Assist : Independent, complete Date to Meet : 10/29/2019 EST Goal Status : Not met JACQUELYN KIM, PT - 10/18/2019 8:56 EST Electronically signed by [facility] Conversion See Wheeler Cerner at 01/24/2023 10:41 AM CDT documented in this encounter Plan of Treatment Not on file documented as of this encounter Visit Diagnoses Not on filedocumented in this encounter Care Teams Compounder Flavorings Relationship Specialty Start Date End Date Marielos Amaral APRN [address] [address] PCP - General Nurse Practitioner 08/18/23 documented as of this encounter
--- OUTSIDE RECORDS SUMMARY | 2025-05-19 12:28 | XMS_ITS | Encounter Summary ---
Author Organization [employer] ([place], [place], [place], [place]) Address [address] [place] [address] Care Team Providers Care Rubber Roller Grinder Name Role Phone Marielos Amaral KAYE Primary Care Provider Encounter Details Date Type Department Care Team (Late st Contact Info) Description 02/05/2019 Transcribed Document [facility] [place] [address] [place] [address] ProviderHaroldo MD [address] [place] [address] Social History Tobacco Use Types Packs/Day Years [...] Communication Barrier : None Primary Language : Vincentian Any Spiritual/Cultural Needs or Requests : No [...] Mikayla Roberto Rn - 02/05/2019 23:14 EDT [place] Coma [place] Best Motor Response : Obey commands [place] Best Verbal Response : Oriented [place] Eye Opening Response : Spontaneous [place] Coma Score : 15 Mikayla Roberto Rn - 02/05/2019 23:14 EDT Electronically signed by Brittany [facility] Conversion Dixonac Operator Cerner at 01/24/2023 10:25 AM CDT documented in this encounter Plan of Treatment Not on file documented as of this encounter Visit Diagnoses Not on filedocumented in this encounter Care Teams Rubber Roller Grinder Relationship Specialty Start Date End Date Marielos Amaral, KAYE [address] [address] PCP - General Nurse Practitioner 08/18/23 documented as of this encounter
--- OUTSIDE RECORDS SUMMARY | 2025-05-19 12:28 | XMS_ITS | Encounter Summary ---
Author Organization [employer] ([place], [place], [place], [place]) Address [address] [place] [address] Care Team Providers Care Facility Maintenance Mechanic Name Role Phone Marielos Amaral KAYE Primary Care Provider Encounter Details Date Type Department Care Team (Late st Contact Info) Description 02/06/2019 Transcribed Document [facility] [place] [address] [place] [address] ProviderHaroldo MD [address] [place] [address] Social History Tobacco Use Types Packs/Day Years [...] Stand Device : None, Belt, gait, Other: INSIDE ACCOUNT EXECUTIVE of 1 Stand to Sit Device : None, Belt, gait, Other: INSIDE ACCOUNT EXECUTIVE of 1 Sit to Supine Devices : [...] Walking Distance : 180 ft with min INSIDE ACCOUNT EXECUTIVE due to min ataxia. pt with 2-3 occasions of LOB and 1 episode of R toe drag during R swing phase. Verbal cues to slow janna to reduce ataxia. and improve dynamic balance. Ambulatory Devices : Gait belt, Other: INSIDE ACCOUNT EXECUTIVE of 1 Gait Deviations : Yes Left [...] ARYAN GOSS, PT - 02/06/2019 15:13 EDT Cashier General Goals Mobility/Bed Mobility LTG PT Grid Goal [...] ARYAN GOSS, PT - 02/06/2019 15:13 EDT Corn PT Charges PT Eval Low Complexity : 1 ARYAN GOSS PT - 02/06/2019 15:13 EDT Electronically signed by Brittany [facility] Conversion Membership Sales Representative Cerner at 01/24/2023 10:26 AM CDT documented in this encounter Plan of Treatment Not on file documented as of this encounter Visit Diagnoses Not on filedocumented in this encounter Care Teams Facility Maintenance Mechanic Relationship Specialty Start Date End Date Marielos Amaral, KAYE [address] [address] PCP - General Nurse Practitioner 08/18/23 documented as of this encounter
--- OUTSIDE RECORDS SUMMARY | 2025-05-19 12:28 | XMS_ITS | Encounter Summary ---
Author Organization [employer] ([place], [place], [place], [place]) Address [address] [place] [address] Care Team Providers Care Asphalt Tamper Name Role Phone Marielos Amaral APRN Primary Care Provider Encounter Details Date Type Department Care Team (Late st Contact Info) Description 04/12/2020 Transcribed Document [facility] [place] [address] [place] [address] ProviderHaroldo MD [address] [place] [address] Social History Tobacco Use Types Packs/Day Years [...] 1950 Associated Diagnoses: None Author: [facility] Procedure: Esophagogastroduodenoscopy with with cold biopsies and radiofrequency ablation Endoscopist: Princess Lopez II, M.D. Referring Physician: Axel Hamlin M.D. Date of Procedure: April 12, 2020 Equipment: Olympus GIF-190 standard gastroscope Method of Sedation: MAC sedation Indication: Mr. Antoine is a 69-year-old gentleman who is here for follow-up surveillance upper endoscopy with possible radiofrequency ablation. 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 Initial biopsies did show intestinal [...] on filedocumented in this encounter Care Teams Asphalt Tamper Relationship Specialty Start Date End Date Marielos Amaral, KAYE [address] [phone] PCP - General Nurse Practitioner 08/18/23 documented as of this encounter
--- OUTSIDE RECORDS SUMMARY | 2025-05-19 12:28 | XMS_ITS | Encounter Summary ---
Author Organization [employer] ([place], [place], [place], [place]) Address [address] [place] [address] Care Team Providers Care Liquefaction Supervisor Name Role Phone Marielos Amaral KAYE Primary Care Provider Encounter Details Date Type Department Care Team (Late st Contact Info) Description 02/06/2019 Transcribed Document [facility] [facility] [place] [address] ProviderHaroldo MD [address] [place] [address] Social History Tobacco Use Types Packs/Day Years [...] Ambulatory Legal Guardian : Unaccompanied Support Person/Patient Final Inspector Movement Assembly : Yes Support Person/Pt Rep Name : Enriqueta - Contact Password : peanut Support Person/Pt Rep Contact Information : [phone] Want Family/Rep/Phys Notified of Admit : No Emergency Contact #1 : Enriqueta Carrasco Emergency Contact #1 Emergency Contact #1 Relationship : Emergency Contact #2 : January Jet Emergency Contact #2 Emergency Contact #2 Relationship : daughter Chief Complaint : pt here c/o right shoulder pain and weakness to right arm and loss of balance port surveyor strength equal bilaterally decreased sensation to right arm and right leg no facial droop or slurred speech equal bilateral lower extremities Information Obtained From : Patient Primary Language : Faroese Communication Barrier : None Lina Chaudhary Rn-Flex [...] Scale Risk Level : 25-45 Medium Risk [place] Fall Interventions : Adequate lighting, Assistive devices [...] Source : Stated Height Entry Format : [place] Height, Feet : 5 ft(Converted to: 152 cm, 60 Inch) Height, Inches : 9 Inch(Converted to: 0 ft 9 Inch, 22.86 cm) Clinical Height : 175.26 cm Weight Source : Standing scale Weight Entry Format : [place] Clinical Dosing Weight : 79.55 kg Weight, Pounds : 175 lb Body Surface Area (BSA) : 1.95 m2 Body Mass Index : 25.9 kg/m2 (HI) [place] Body Weight : 70 kg Lina Chaudhary [...] on filedocumented in this encounter Care Teams Liquefaction Supervisor Relationship Specialty Start Date End Date Marielos Amaral, FACULTY INSTRUCTOR [address] [place] [address] PCP - General Nurse Practitioner 08/18/23 documented as of this encounter
--- OUTSIDE RECORDS SUMMARY | 2025-05-19 12:28 | XMS_ITS | Encounter Summary ---
Author Organization [employer] ([place], [place], [place], [place]) Address [address] [place] [address] Care Team Providers Care Speech Pathology Assistant Name Role Phone Marielos Amaral KAYE Primary Care Provider Encounter Details Date Type Department Care Team (Late st Contact Info) Description 02/06/2019 Transcribed Document [facility] [place] [address] [place] [address] ProviderHaroldo MD [address] [place] [address] Social History Tobacco Use Types Packs/Day Years [...] 02/06/2019 8:54 EDT Electronically signed by Brittany [facility] Conversion Clinical Faculty Cerner at 01/24/2023 10:20 AM CDT documented in this encounter Plan of Treatment Not on file documented as of this encounter Visit Diagnoses Not on filedocumented in this encounter Care Teams Speech Pathology Assistant Relationship Specialty Start Date End Date Marielos Amaral, SUPERVISOR CUSTOMER COMPLAINT SERVICE [address] [phone] PCP - General Nurse Practitioner 08/18/23 documented as of this encounter
--- OUTSIDE RECORDS SUMMARY | 2025-05-19 12:28 | XMS_ITS | Encounter Summary ---
Author Organization [employer] ([place], [place], [place], [place]) Address [address] [place] [address] Care Team Providers Care Pigment Grinder Name Role Phone Marielos Amaral APRN Primary Care Provider Encounter Details Date Type Department Care Team (Late st Contact Info) Description 02/05/2019 Transcribed Document [facility] [place] [facility] [place] [address] ProviderHaroldo MD [address] [place] [address] Social History Tobacco Use Types Packs/Day Years [...] to right arm and loss of balance industrial relations counselor strength equal bilaterally decreased sensation to right [...] history: cardiac catheterization. hernia repair. tonsillectomy. Cholecystectomy; (00608). appendectomy. left arm surgery. coronary stents.. Family [...] EDT Height Source Stated Height Entry Format [place] Height/Length, DIVEHI (ft) 5 ft Height/Length DIVEHI 9 Inch CLINICALHEIGHT 175.26 cm [place] Body Weight 69.73 kg Weight Source, ED Critical estimated dosing weight Weight Entry Format [place] Weight Polish lb 175 lb CLINICALWEIGHT 79.55 kg Body [...] have the patient admitted to hospitalist. Neurology regulatory consultant was contacted who recommended CTA brain perfusion [...] ED Adult Triage: ED Clinical Reconciliation: ED straw baler: Lipase Level: Peripheral IV Insertion: Troponin I Ultra: . Electrocardiogram: Time 02/05/2019 21:53:00, rate 79, normal sinus rhythm, No ST changes, no ectopy, normal ID & QRS intervals, EP Interp, Normal sinus [...] % 20.5 % Lymph # 2.34 x10(3)/uL [place] % 8.7 % [place] # 0.99 K/uL Eos % 1.0 % Eos # 0.12 x10(3)/uL Baso % 0.4 % Baso # 0.05 x10(3)/uL Slide Review No IG# 0.09 x10(3)/uL HI IG% 0.80 % HI Alcohol <3 mg/dL NA %Alcohol <.00 NA . Radiology results: Radiology Results (Last 48 hours) [id number] -- 02/05/2019 23:59 CT Head WO (02/05/2019 [...] instructions. Notes: I certify that the Physician Investment Sales Assistant performed the services as delegated. I agree with the assessment, treatment plan and disposition of the patient as recorded by the Physician Investment Sales Assistant, Dr. Kaur. documented in this encounter Plan of Treatment Not on file documented as of this encounter Visit Diagnoses Not on filedocumented in this encounter Care Teams Pigment Grinder Relationship Specialty Start Date End Date Marielos Amaral, FIELD SERVICE TECHNICIAN POULTRY [address] [place] [address] PCP - General Nurse Practitioner 08/18/23 documented as of this encounter
--- OUTSIDE RECORDS SUMMARY | 2025-05-19 12:28 | XMS_ITS | Encounter Summary ---
Author Organization [employer] ([place], [place], [place], [place]) Address [address] [place] [address] Care Team Providers Care Tailor Helper Name Role Phone Marielos Amaral CLINICAL DOCUMENTATION CONSULTANT Primary Care Provider [phone] Encounter Details Date Type Department Care Team (Late st Contact Info) Description 10/17/2019 Transcribed Document [facility] [place] [address] [place] [address] ProviderHaroldo MD [address] [place] [address] Social History Tobacco Use Types Packs/Day Years Used Date Smoking Tobacco: Never Assessed Sex and Gender Information Value Date Recorded Sex Assigned at Not on file Legal Sex Male 3:45 PM CDT Gender Identity Not on file Sexual Orientation Not on file documented as of this encounter Miscellaneous Notes * Cerner Conversion Note - Historical ProviderMD - 10/17/2019 11:43 AM ACADEMIC SERVICES PROFESSIONAL Patient: ZACKARY ANTOINE Age: 68 Years Sex: [...] PRN Eliquis, 5 mg= 1 Tab, Oral, [id number] Flomax, 0.4 mg= 1 Cap, Oral, Daily [...] Push, Q4H, PRN Electronically signed by Brittany [facility] Conversion Emergency Room Clinician [employer] at 01/24/2023 10:40 AM CDT documented in this encounter Plan of Treatment Not on file documented as of this encounter Visit Diagnoses Not on filedocumented in this encounter Care Teams Tailor Helper Relationship Specialty Start Date End Date Marielos Amaral, CLINICAL DOCUMENTATION CONSULTANT [address] [phone] PCP - General Nurse Practitioner 08/18/23 documented as of this encounter
--- OUTSIDE RECORDS SUMMARY | 2025-05-19 12:28 | XMS_ITS | Encounter Summary ---
Author Organization [employer] ([place], [place], [place], [place]) Address [address] [place] [address] Care Team Providers Care Head Custodian Name Role Phone Marielos Amaral KAYE Primary Care Provider Encounter Details Date Type Department Care Team (Late st Contact Info) Description 02/06/2019 Transcribed Document [facility] [address] [place] [address] ProviderHaroldo MD [address] [place] [address] Social History Tobacco Use Types Packs/Day Years [...] Framework : Not integrated, provides little strength/resource Spiritism Preference : No baptist JORDYN HART - 02/06/2019 14:15 EDT Spiritual Assessment Patient's Community/Relationship : Strength in patient's life Supportive/Healthy Relationships : Yes Supportive Spiritism Community : No Spiritual Assessment Comment/Summary Points [...] 02/06/2019 14:15 EDT Electronically signed by Brittany [facility] Conversion Principal Programmer Cerner at 01/24/2023 10:19 AM CDT documented in this encounter Plan of Treatment Not on file documented as of this encounter Visit Diagnoses Not on filedocumented in this encounter Care Teams Head Custodian Relationship Specialty Start Date End Date Marielos Amaral, KAYE [address] [place] [address] PCP - General Nurse Practitioner 08/18/23 documented as of this encounter
--- OUTSIDE RECORDS SUMMARY | 2025-05-19 12:29 | XMS_ITS | Encounter Summary ---
Author Organization [employer] ([place], [place], [place], [place]) Address [address] [place] [address] Care Team Providers Care Fun House Operator Name Role Phone Marielos Amaral MACHINE MAINTENANCE SERVICER Primary Care Provider Encounter Details Date Type Department Care Team (Late st Contact Info) Description 01/20/[address] [facility] [place] Family Medicine [address] [place] [address] ProviderHaroldo MD [address] [place] [address] Social History Tobacco Use Types Packs/Day Years Used Date Smoking Tobacco: Never Assessed Sex and Gender Information Value Date Recorded Sex Assigned at Not on file Legal Sex Male 3:45 PM CDT Gender Identity Not on file Sexual Orientation Not on file documented as of this encounter Miscellaneous Notes * Cerner Conversion Note - Haroldo ProviderMD - 01/20/2019 2:37 PM CDT [address] [address] LEINA ZACKARY COOK :1950 Visit Time:01/20/2019 What to [...] up with Dr Lopez as needed Where: [address] [place] [address]- Medications What How Much When Instructions Next [...] Document Reviewed: 12/01/2012 ExitCare?? Patient Information ??2015 [employer]. This information is not intended to replace [...] including vitamins, herbs, eye drops, creams, and ibvv-zxw-jyfxtmm medicines. ???Previous problems you or members of [...] Document Reviewed: 08/25/2013 ExitCare?? Patient Information ??2015 [employer]. This information is not intended to replace [...] including vitamins, herbs, eye drops, creams, and rjlc-gsp-gufueup medicines. ??? Previous problems you or members [...] 07/13/2014 Document Revised: 10/13/2015 Document Reviewed: 07/13/2014 [employer] Patient Education ?? 2017 Publicfast. Emergency Awareness and Preventative Care STROKE is [...] Assistance with quitting is available by contacting 1-096-OMOB-NOW. This is a free resource providing counseling, [...] Be sure to sign up for the [facility] patient portal, which gives you 28/04 access to your medical information ??? including these discharge instructions ??? using your computer, smartphone, or tablet. Just go to [employer] to get started. Questions? Call . Test Results Laboratory or Other Results This Visit (last charted value for your 01/20/2019 visit) General Chemistry 01/20/19 12:42:00 Glucose POC2: 182 mg/dL -- Normal range between ( 70 and 110 ) Patient Name:ZACKARY ANTOINE I have received this information and was given the opportunity to ask questions. Patient/Vehicle Check In Clerk Name: Patient/Vehicle Check In Clerk Signature: Relationship to Patient: Clinician/Hospital Vehicle Check In Clerk Signature: Date: documented in this encounter Plan of Treatment Not on file documented as of this encounter Visit Diagnoses Not on filedocumented in this encounter Care Teams Fun House Operator Relationship Specialty Start Date End Date Marielos Amaral, MACHINE MAINTENANCE SERVICER [address] [phone] PCP - General Nurse Practitioner 08/18/23 documented as of this encounter
--- OUTSIDE RECORDS SUMMARY | 2025-05-19 12:29 | XMS_ITS | Encounter Summary ---
Author Organization [employer] ([place], [place], [place], [place]) Address [address] [place] [address] Care Team Providers Care Power Transformer Repair Supervisor Name Role Phone AmaralMarielos roque KAYE Primary Care Provider Encounter Details Date Type Department Care Team (Late st Contact Info) Description 10/16/[address] [facility] [place] Family Medicine [address] [place] [address] ProviderHaroldo MD [address] [place] [address] Social History Tobacco Use Types Packs/Day Years Used Date Smoking Tobacco: Never Assessed Sex and Gender Information Value Date Recorded Sex Assigned at Not on file Legal Sex Male 3:45 PM CDT Gender Identity Not on file Sexual Orientation Not on file documented as of this encounter Miscellaneous Notes * Cerner Conversion Note - Haroldo Warren MD - 10/16/2019 12:58 PM POLYMERIZATION SUPERVISOR Discharge Instructions Entered On: 10/16/2019 12:59 EST [...] filedocumented in this encounter Care Teams Power Transformer Repair Supervisor Relationship Specialty Start Date End Date Marielos Amaral APRN [address] [address] PCP - General Nurse Practitioner 08/18/23 documented as of this encounter
--- OUTSIDE RECORDS SUMMARY | 2025-05-19 12:29 | XMS_ITS | Encounter Summary ---
Author Organization [employer] ([place], [place], [place], [place]) Address [address] [place] [address] Care Team Providers Care Other Wood Processing Machine Operator Name Role Phone Marielos Amaral KAYE Primary Care Provider Encounter Details Date Type Department Care Team (Late st Contact Info) Description 10/17/2019 Transcribed Document [facility] [place] [address] [place] [address] ProviderHaroldo MD [address] [place] [address] Social History Tobacco Use Types Packs/Day Years Used Date Smoking Tobacco: Never Assessed Sex and Gender Information Value Date Recorded Sex Assigned at Not on file Legal Sex Male 3:45 PM CDT Gender Identity Not on file Sexual Orientation Not on file documented as of this encounter Miscellaneous Notes * Cerner Conversion Note - Haroldo ProviderMD - 10/17/2019 2:00 AM SILK BRUSHER Jig Boring Machine Set Up Operator Details Entered On: 10/17/2019 4:54 EST Performed [...] 10/17/2019 4:53 EST Electronically signed by Brittany [facility] Conversion Potter Or Ceramic Artist Cerner at 01/24/2023 10:28 AM CDT documented in this encounter Plan of Treatment Not on file documented as of this encounter Visit Diagnoses Not on filedocumented in this encounter Care Teams Other Wood Processing Machine Operator Relationship Specialty Start Date End Date Marielos Amaral, KAYE [address] [phone] PCP - General Nurse Practitioner 08/18/23 documented as of this encounter
--- OUTSIDE RECORDS SUMMARY | 2025-05-19 12:29 | XMS_ITS | Encounter Summary ---
Author Organization [employer] ([place], [place], [place], [place]) Address [address] [place] [address] Care Team Providers Care Sap Bobj Developer Name Role Phone Marielos Amaral KAYE Primary Care Provider [phone] Encounter Details Date Type Department Care Team (Late st Contact Info) Description 10/15/2019 Transcribed Document [facility] [place] Family Medicine [address] [place] [address] ProviderHaroldo MD [address] [place] [address] Social History Tobacco Use Types Packs/Day Years Used Date Smoking Tobacco: Never Assessed Sex and Gender Information Value Date Recorded Sex Assigned at Not on file Legal Sex Male 3:45 PM CDT Gender Identity Not on file Sexual Orientation Not on file documented as of this encounter Miscellaneous Notes * Cerner Conversion Note - Historical ProviderMD - 10/15/2019 3:40 AM DIE CASTING MACHINE SETTER Attempt to Treat Entered On: 10/15/2019 7:18 EST Performed On: 10/15/2019 3:40 EST by REJI STERLING Chaplain Attempt to Treat Unable to Treat Due To : Other: Indisposed Inability to Treat Comment : Staff working with [facility]. Norberto plan to Follow up later REJI STERLING Chaplain - 10/15/2019 7:16 EST Electronically signed by Brittany [facility] Conversion Fire Fighters Dispatcher Cerner at 01/24/2023 10:32 AM CDT documented in this encounter Plan of Treatment Not on file documented as of this encounter Visit Diagnoses Not on filedocumented in this encounter Care Teams Sap Bobj Developer Relationship Specialty Start Date End Date Marielos Amaral, VOICE DATA COMMUNICATIONS ENGINEER [address] [phone] PCP - General Nurse Practitioner 08/18/23 documented as of this encounter
--- OUTSIDE RECORDS SUMMARY | 2025-05-19 12:29 | XMS_ITS | Encounter Summary ---
Author Organization [employer] ([place], [place], [place], [place]) Address [address] [place] [address] Care Team Providers Care Wigs Salesperson Name Role Phone Marielos Amaral KAYE Primary Care Provider [phone] Encounter Details Date Type Department Care Team (Late st Contact Info) Description 10/16/2019 Transcribed Document [facility] [place] [address] [place] [address] ProviderHaroldo MD [address] [place] [address] Social History Tobacco Use Types Packs/Day Years Used Date Smoking Tobacco: Never Assessed Sex and Gender Information Value Date Recorded Sex Assigned at Not on file Legal Sex Male 3:45 PM CDT Gender Identity Not on file Sexual Orientation Not on file documented as of this encounter Miscellaneous Notes * Cerner Conversion Note - Haroldo ProviderMD - 10/16/2019 2:00 AM GEOGRAPHY PROFESSOR Applications Support Lead Details Entered On: 10/16/2019 0:45 EST Performed [...] - 10/16/2019 0:45 EST Electronically signed by Britatny [facility] Conversion Pst Specialist Cerner at 01/24/2023 10:21 AM CDT documented in this encounter Plan of Treatment Not on file documented as of this encounter Visit Diagnoses Not on filedocumented in this encounter Care Teams Wigs Salesperson Relationship Specialty Start Date End Date Marielos Amaral, KAYE [address] [phone] PCP - General Nurse Practitioner 08/18/23 documented as of this encounter
--- OUTSIDE RECORDS SUMMARY | 2025-05-19 12:29 | XMS_ITS | Encounter Summary ---
Author Organization [employer] ([place], [place], [place], [place]) Address [address] [place] [address] Care Team Providers Care Computer Specialist Name Role Phone Marielos Amaral KAYE Primary Care Provider Encounter Details Date Type Department Care Team (Late st Contact Info) Description 04/24/2022 Transcribed Document [facility] Radiology [address] [place], [place] [phone] Saba Neal MD [address] [place] [address] [address] [place] [address] Social History Tobacco Use Types Packs/Day Years [...] speak a language other than Panamanian at [facility]? Yes 10/30/2024 [...] Other (See Comment) Eliquis: 2.5 mg, Oral, [id number] Normal Saline 1,000 mL: 100 mL/Hr, IntraVENous Rocephin: 1 Gram, 100 mL/Hr, IV Piggyback, I45NGaz Tylenol: 650 mg, Oral, Q4H, PRN: Pain [...] mg tab 2.5 mg 1 Tab, Oral, [id number] atorvastatin 40 mg tab 40 mg 1 Tab, Oral, At Bedtime cefTRIAXone 1 Gram, IV Piggyback, I09SRnf cholecalciferol 1,000 unit tab 1,000 Units 1 [...] list: Medical Atrial fibrillation / SNOMED CT 58344985 / Confirmed CAD - Coronary artery disease / SNOMED CT 0846911890 / Confirmed Cardiomyopathy / SNOMED CT 406698521 / Confirmed Acute cerebrovascular accident (CVA) / SNOMED CT 596393495 / Confirmed History of obstructive sleep apnea / IMO 68569564 / Confirmed HLD - Hyperlipidemia / SNOMED CT 535881951 / Confirmed HTN - Hypertension / SNOMED CT 2054411478 / Confirmed Type 2 diabetes mellitus / SNOMED CT 662392869 / Confirmed, Active Problems (20) Acute cerebrovascular [...] data available Radiology Results (Last 48 hours) [id number] -- 04/22/2022 12:30 CT Head WO (04/22/2022 [...] dictated by Dr. Artem Mcdermott.Transcribed by Lisa Hloliday (Rtuhie).I have personally viewed, interpreted and dictated the [...] 04/23/22 12:02:00 EDT, 04/23/22 12:02:00 EDT SABA ENAL MD-INT insulin glargine 15 Units, SubCutaneous, Inj, [...] filedocumented in this encounter Care Teams Computer Specialist Relationship Specialty Start Date End Date Marielos Amaral, PALS NURSE [address] [phone] PCP - General Nurse Practitioner 08/18/23 documented as of this encounter
--- OUTSIDE RECORDS SUMMARY | 2025-05-19 12:29 | XMS_ITS | Encounter Summary ---
Author Organization [employer] ([place], [place], [place], [place]) Address [address] [place] [address] Care Team Providers Care Veneer Slicing Machine Operator Name Role Phone AmaralMarielos roque KAYE Primary Care Provider Encounter Details Date Type Department Care Team (Late st Contact Info) Description 10/17/[address] [facility] [place] Family Medicine [address] [place] [address] ProviderHaroldo MD [address] [place] [address] Social History Tobacco Use Types Packs/Day Years Used Date Smoking Tobacco: Never Assessed Sex and Gender Information Value Date Recorded Sex Assigned at Not on file Legal Sex Male 3:45 PM CDT Gender Identity Not on file Sexual Orientation Not on file documented as of this encounter Miscellaneous Notes * Cerner Conversion Note - Haroldo ProviderMD - 10/17/2019 12:17 PM PORCELAIN ENAMEL INSTALLER Stroke/Warfarin Instructions Entered On: 10/17/2019 12:18 EST [...] filedocumented in this encounter Care Teams Veneer Slicing Machine Operator Relationship Specialty Start Date End Date Marielos Amaral APRN [address] [address] PCP - General Nurse Practitioner 08/18/23 documented as of this encounter
--- OUTSIDE RECORDS SUMMARY | 2025-05-19 12:29 | XMS_ITS | Encounter Summary ---
Author Organization [employer] ([place], [place], [place], [place]) Address [address] [place] [address] Care Team Providers Care Hair Sample Matcher Name Role Phone Marielos Amaral APRN Primary Care Provider Encounter Details Date Type Department Care Team (Late st Contact Info) Description 01/20/2019 Transcribed Document [facility] [place] [address] [place] [address] ProviderHaroldo MD [address] [place] [address] Social History Tobacco Use Types Packs/Day Years [...] ELINADEION /Sex: 1950 Male Med Rec #: [id number] Physician: PRINCESS DOCKERY MD-GAE Financial #: [id number] Pt. Type: O Room/Bed: N/18 Admit/Disch: 01/20/19 12:15:00 - Institution: [facility] Endo - Case Attendance Entry 1 Entry 2 Entry 3 Case Attendee PRINCESS DOCKERY, Ivone Humphreys, BRYANT BRADY, MATLAB DEVELOPER KRIS Role Performed Surgeon/Proceduralist, Medication Aide, First MATLAB DEVELOPER/Nurse Electrical Drafter First Time In 01/20/19 14:08:00 01/20/19 14:08:00 [...] Ivone Sanders, LUIS 01/20/19 14:24:59 01/20/19 14:24:59 [facility] Endo - Case Attendance Audit 01/20/19 14:24:59 Veterinary Epidemiologist: CHASKNEA Modifier: BICKNEA 1 <+> Time Out 1 <*> Procedure EGD w Radiofrequency Ablation 2 <+> Time Out 2 <*> Procedure EGD w Radiofrequency Ablation 3 <+> Time Out 3 <*> Procedure EGD w Radiofrequency Ablation 4 <+> Time Out 4 <*> Procedure EGD w Radiofrequency Ablation 5 <+> Time Out 5 <*> Procedure EGD w Radiofrequency Ablation 01/20/19 14:09:48 Veterinary Epidemiologist: BICKNEA Modifier: BICKNEA <+> 1 Procedure 2 [...] Endo - Case Times Audit 01/20/19 14:24:56 Veterinary Epidemiologist: BICKNEA Modifier: BICKNEA <+> 1 Out Room Time <+> 1 Stop Time 01/20/19 14:24:49 Veterinary Epidemiologist: BICKNEA Modifier: BICKNEA <+> 1 Stop Time 01/20/19 14:13:29 Veterinary Epidemiologist: BICKNEA Modifier: BICKNEA <+> 1 Start Time <+> 1 Anesthesia Ready [facility] - Cautery Entry 1 ESU Identification Cautery Type Other Cautery Type halo flex Comments ID Number [id number] ID Type Hospital Number Cautery Settings ESU Grounding Pad Last Modified By: Ivone Humphreys RN 01/20/19 14:27:00 [facility] - Cautery Audit 01/20/19 14:27:00 Veterinary Epidemiologist: BICKNEA Modifier: BICKNEA <+> 1 ID Number [...] 01/20/19 14:09:52 E Endo - General Case Missile Mechanic 1 Case Information [facility] Endo 03 E Case Level 1 Room Verified Yes Wound Class II - Clean-Contaminated Specialty SN Gastroenterology Anesthesia Type MAC ASA Class 3 Diagnosis Preop Diagnosis K22.719 BARRETTS ESOPHAGUS W/DYSPLASIA Postop Diagnosis hiatal hernia and barretts Last Modified By: Ivone Humphreys RN 01/20/19 14:16:45 [facility] Endo - General Case Data Audit 01/20/19 14:16:45 Veterinary Epidemiologist: BICLAWANDAEA Modifier: BICKNEA <+> 1 Postop Diagnosis [...] Entry 1 Medication/Irrigant Mucomyst 200mg/1ml 10ml - [id number] Time Administered 01/20/19 14:14:00 Route of Esophageal Wash Administration Dose Dose 10 Unit of Measure ml Volume mixed in 57ml of water Administered By PRINCESS DOCKERY MD-GAE Procedure Irrigation Last Modified By: Ivone Humphreys RN 01/20/19 14:24:46 [facility] - Medication Admin Audit 01/20/19 14:24:46 Veterinary Epidemiologist: ZAC Modifier: BICKNEA 1 <*> Medication/Irrigant Mucomyst 200mg/1ml 10ml - [id number] 1 <*> Dose 5 [facility] - [...] Endo - Surgical Procedures Audit 01/20/19 14:25:03 Veterinary Epidemiologist: BICKNEA Modifier: BICKNEA <+> 1 Stop 01/20/19 14:13:35 Veterinary Epidemiologist: BICKNEA Modifier: BICKNEA <+> 1 Start 01/20/19 14:11:53 Veterinary Epidemiologist: BICKNEA Modifier: BICKNEA 1 <*> Procedure EGD w Radiofrequency Ablation 1 <+> Specialty [facility] Endo - Time Out Entry 1 Procedure [...] RN 01/20/19 14:27 Electronically signed by Brittany [facility] Conversion Slice Cutting Machine Operator Cerner at 01/24/2023 10:26 AM CDT documented in this encounter Plan of Treatment Not on file documented as of this encounter Visit Diagnoses Not on filedocumented in this encounter Care Teams Hair Sample Matcher Relationship Specialty Start Date End Date Marielos Amaral APRN [address] [address] PCP - General Nurse Practitioner 08/18/23 documented as of this encounter
--- OUTSIDE RECORDS SUMMARY | 2025-05-19 12:29 | XMS_ITS | Encounter Summary ---
Author Organization [employer] ([place], [place], [place], [place]) Address [address] [place] [address] Care Team Providers Care Sterile Processing Manager Name Role Phone Marielos Amaral APRN Primary Care Provider Encounter Details Date Type Department Care Team (Late st Contact Info) Description 10/15/2019 Transcribed Document [facility] [place] [address] [place] [address] ProviderHaroldo MD [address] [place] [address] Social History Tobacco Use Types Packs/Day Years Used Date Smoking Tobacco: Never Assessed Sex and Gender Information Value Date Recorded Sex Assigned at Not on file Legal Sex Male 3:45 PM CDT Gender Identity Not on file Sexual Orientation Not on file documented as of this encounter Miscellaneous Notes * Cerner Conversion Note - Haroldo ProviderMD - 10/15/2019 6:50 PM HOUSING MANAGEMENT OFFICER Patient: DEION ANTOINE Age: 68 years Sex: Male : 1950 Associated Diagnoses: None Author: MANUELA MELENDEZ MD-CAR Basic Information PCP: Dr. Axel Hamlin MD Primary Advertising Coordinator: Dr. Tahira Peterson MD / Dr. Bhanu [...] tablet 5 mg = 1 Tab, Oral, [id number] Eliquis 5 mg oral tablet 5 mg [...] Shortness of Breath Eliquis: 5 mg, Oral, U70HLvd Flomax: 0.4 mg, Oral, Daily Metoprolol Succinate [...] 5 mg oral tablet: 1 Tab, Oral, W99XGry, 60 Tab, 0 Refill(s) Toprol-XL 25 mg [...] mg tab 5 mg 1 Tab, Oral, J22PTjb atorvastatin 40 mg tab 40 mg 1 [...] list: All Problems Angina / SNOMED CT 804068074 / Confirmed Coronary artery disease / SNOMED CT 5600616230 / Confirmed Diabetes mellitus type II / SNOMED CT 33178032 / Confirmed GERD - Gastro-esophageal reflux disease / SNOMED CT 9403201676 / Confirmed Heart failure / SNOMED CT 085154919 / Confirmed Heart murmur / SNOMED CT 367364482 / Confirmed History of obstructive sleep apnea / IMO 23907513 / Confirmed Hyperlipidemia / SNOMED CT 23960390 / Confirmed Hypertension / SNOMED CT 35162838 / Confirmed Impaired vision / SNOMED CT 93344277 / Confirmed Enlarged prostate / SNOMED CT 292086928 / Confirmed Migraine / SNOMED CT 87492274 / Confirmed Stented coronary artery / SNOMED CT 5457188595 / Confirmed, Active Problems (13) Angina Coronary [...] Cardiac catheterization. hernia repair. Tonsillectomy. Cholecystectomy; (CPT4 06612). Appendectomy. left arm surgery. Coronary stents. Social [...] flowsheet : Measurements 10/15/2019 5:58 EST Height/Length, HAITIAN (ft) 5 ft Height/Length HAITIAN 9 Inch Routine Weight, Kilograms 87.5 kg [...] Normal strength, No deformity. Integumentary: Warm, Dry, [place], Intact, No rash. Neurologic: Alert, Oriented, No [...] 24 Hours) Radiology Results (Last 48 hours) [id number] -- 10/14/2019 17:19 CR Chest 1 Vw [...] from cardiac standpoint. Electronically signed by Brittany, [facility] Conversion Agricultural Economics Teacher [employer] at 01/24/2023 10:45 AM CDT documented in this encounter Plan of Treatment Not on file documented as of this encounter Visit Diagnoses Not on filedocumented in this encounter Care Teams Sterile Processing Manager Relationship Specialty Start Date End Date Marielos Amaral, KAYE [address] [phone] PCP - General Nurse Practitioner 08/18/23 documented as of this encounter
--- OUTSIDE RECORDS SUMMARY | 2025-05-19 12:29 | XMS_ITS | Encounter Summary ---
Author Organization [employer] ([place], [place], [place], [place]) Address [address] [place] [address] Care Team Providers Care Nipple Machine Operator Name Role Phone Marielos Amaral KAYE Primary Care Provider Encounter Details Date Type Department Care Team (Late st Contact Info) Description 10/15/2019 Transcribed Document [facility] [place] Family Medicine [address] [place] [address] ProviderHaroldo MD [address] [place] [address] Social History Tobacco Use Types Packs/Day Years Used Date Smoking Tobacco: Never Assessed Sex and Gender Information Value Date Recorded Sex Assigned at Not on file Legal Sex Male 3:45 PM CDT Gender Identity Not on file Sexual Orientation Not on file documented as of this encounter Miscellaneous Notes * [employer]ner Conversion Note - Haroldo ProviderMD - 10/15/2019 5:00 PM CEMETERY MANAGER Chart Check - Review Order Profile Entered On: 10/15/2019 16:17 EST Performed On: 10/15/2019 17:00 EST by Deysi Valdes RN Chart Check Powerplans Initiated/Discontinued as Appropriate : Yes All Active Orders Reviewed : Yes Deysi Valdes RN - 10/15/2019 16:17 EST Electronically signed by Brittany [facility] Conversion Database Management Specialist Cerner at 01/24/2023 10:39 AM CDT documented in this encounter Plan of Treatment Not on file documented as of this encounter Visit Diagnoses Not on filedocumented in this encounter Care Teams Nipple Machine Operator Relationship Specialty Start Date End Date Marielos Amaral, VIRTUAL REALITY SPECIALIST [address] [place] [address] PCP - General Nurse Practitioner 08/18/23 documented as of this encounter
--- OUTSIDE RECORDS SUMMARY | 2025-05-19 12:29 | XMS_ITS | Encounter Summary ---
Author Organization [employer] ([place], [place], [place], [place]) Address [address] [place] [address] Care Team Providers Care Fitter Hand Name Role Phone Marielos Amaral APRN Primary Care Provider Encounter Details Date Type Department Care Team (Late st Contact Info) Description 10/17/2019 Transcribed Document [facility] Radiology [address] [place] [phone] Camilo Steven MD [address] [place] [address] Social History Tobacco Use Types Packs/Day Years [...] Shortness of Breath Eliquis: 5 mg, Oral, [id number] Flomax: 0.4 mg, Oral, Daily Metoprolol Succinate [...] 5 mg oral tablet: 1 Tab, Oral, [id number], 60 Tab, 0 Refill(s) Toprol-XL 25 mg [...] tablet 5 mg = 1 Tab, Oral, M66INfd Eliquis 5 mg oral tablet 5 mg [...] mg tab 5 mg 1 Tab, Oral, [id number] atorvastatin 40 mg tab 40 mg 1 [...] list: All Problems Angina / SNOMED CT 551799626 / Confirmed Coronary artery disease / SNOMED CT 8159765690 / Confirmed Diabetes mellitus type II / SNOMED CT 17712318 / Confirmed GERD - Gastro-esophageal reflux disease / SNOMED CT 8838362896 / Confirmed Heart failure / SNOMED CT 978901999 / Confirmed Heart murmur / SNOMED CT 112074467 / Confirmed History of obstructive sleep apnea / IMO 85811821 / Confirmed Hyperlipidemia / SNOMED CT 42029917 / Confirmed Hypertension / SNOMED CT 51084254 / Confirmed Impaired vision / SNOMED CT 93969676 / Confirmed Enlarged prostate / SNOMED CT 691405575 / Confirmed Migraine / SNOMED CT 57425970 / Confirmed Stented coronary artery / SNOMED CT 8678782432 / Confirmed, Active Problems (13) Angina Coronary [...] Normal strength, No deformity. Integumentary: Warm, Dry, [place], No rash. Neurologic: Alert, Oriented, No focal deficits. Psychiatric: Cooperative, Appropriate mood & affect. Results Review No qualifying data available Cardiac Markers (Current Encounter/Past 24 Hours) No Cardiac Marker Results Found (Past 24 Hours) Radiology Results (Last 48 hours) [id number] -- 10/14/2019 17:19 MRI Brain WO (10/15/2019 [...] filedocumented in this encounter Care Teams Fitter Hand Relationship Specialty Start Date End Date Marielos Amaral, ORACLE APPLICATIONS ANALYST [address] [place] [address] PCP - General Nurse Practitioner 08/18/23 documented as of this encounter
--- OUTSIDE RECORDS SUMMARY | 2025-05-19 12:29 | XMS_ITS | Encounter Summary ---
Author Organization [employer] ([place], [place], [place], [place]) Address [address] [place] [address] Care Team Providers Care Embedded Developer Name Role Phone Marielos Amaral KAYE Primary Care Provider Encounter Details Date Type Department Care Team (Late st Contact Info) Description 01/20/2019 Transcribed Document [facility] Family Medicine [address] [place] [address] ProviderHaroldo MD [address] [place] [address] Social History Tobacco Use Types Packs/Day Years [...] Source : Stated Height Entry Format : Steele Height, Feet : 5 ft(Converted to: 152 cm, 60 Inch) Height, Inches : 9 Inch(Converted to: 0 ft 9 Inch, 22.86 cm) Clinical Height : 175.26 cm Weight Source : Standing scale Weight Entry Format : Steele Clinical Dosing Weight : 78.86 kg Weight, Pounds : 173 lb Weight, Ounces : 8 oz Body Surface Area (BSA) : 1.95 m2 Body Mass Index : 25.7 kg/m2 ([place]) [place] Body Weight : 70 kg CORRINA QUINTANA [...] None, Unknown Intubation History : Unknown CORRINA QUNITANA RN - 01/20/2019 12:33 EDT Functional Assessment [...] Info Preferred Name : Clint Support Person/Patient Rail Car Welder : Yes Support Person/Pt Rep Name : Enriqueta - Contact Password : peanut Support Person/Pt Rep Contact Information : [phone] Want Family/Rep/Phys Notified of Admit : No Emergency Contact #1 : Enriqueta Emergency Contact #1 Emergency Contact #1 Relationship : spouse Emergency Contact #2 : none Emergency Contact #2 Phone Number : none Emergency Contact #2 Relationship : none Chief Complaint : GERD Information Obtained From : Patient Primary Language : Ivorian Communication Barrier : None CORRINA QUINTANA RN [...] Scale Risk Level : 0-24 Low Risk [place] Fall Interventions : Adequate lighting, Assistive devices [...] on filedocumented in this encounter Care Teams Embedded Developer Relationship Specialty Start Date End Date Marielos Amaral, KAYE [address] [place] [address] PCP - General Nurse Practitioner 08/18/23 documented as of this encounter
--- OUTSIDE RECORDS SUMMARY | 2025-05-19 12:29 | XMS_ITS | Encounter Summary ---
Author Organization [employer] ([place], [place], [place], [place]) Address [address] [place] [address] Care Team Providers Care Apprentice Cosmetologist Name Role Phone Marielos Amaral APRN Primary Care Provider [phone] Encounter Details Date Type Department Care Team (Late st Contact Info) Description 01/20/2019 Transcribed Document [facility] [place] [address] [place] [address] ProviderHaroldo MD [address] [place] [address] Social History Tobacco Use Types Packs/Day Years [...] ELINAZACKARY /Sex: 1950 Male Med Rec #: [id number] Physician: PRINCESS DOCKERY MD-GAE Financial #: [id number] Pt. Type: O Room/Bed: N/18 Admit/Disch: 01/20/19 12:15:00 - Institution: [facility] PreOp Case Times Entry 1 In Preop 01/20/19 12:28:00 Ready for Holding n/a Room Patient Ready for 01/20/19 12:48:00 Surgery Patient Out of Preop 01/20/19 12:50:00 Patient Out of n/a Holding Room [facility] PreOp Case Times Audit 01/20/19 12:48:25 Senior Loan Processor: MILLERSH Modifier: MILLERSH <+> 1 Patient Out of Preop <+> 1 Patient Ready for Surgery Finalized By: CORRINA QUINTANA, RN Document Signatures Signed By: CORRINA QUINTANA RN 01/20/19 12:53 documented in this encounter Plan of Treatment Not on file documented as of this encounter Visit Diagnoses Not on filedocumented in this encounter Care Teams Apprentice Cosmetologist Relationship Specialty Start Date End Date Marielos Amaral, KAYE [address] [place] [id number] PCP - General Nurse Practitioner 08/18/23 documented as of this encounter
--- OUTSIDE RECORDS SUMMARY | 2025-05-19 12:29 | XMS_ITS | Encounter Summary ---
Author Organization [employer] ([place], [place], [place], [place]) Address [address] [place] [address] Care Team Providers Care Gas Meter Prover Name Role Phone Marielos Amaral KAYE Primary Care Provider [phone] Encounter Details Date Type Department Care Team (Late st Contact Info) Description 10/15/2019 Transcribed Document [facility] [place] [address] [place] [address] ProviderHaroldo MD [address] [place] [address] Social History Tobacco Use Types Packs/Day Years Used Date Smoking Tobacco: Never Assessed Sex and Gender Information Value Date Recorded Sex Assigned at Not on file Legal Sex Male 3:45 PM CDT Gender Identity Not on file Sexual Orientation Not on file documented as of this encounter Miscellaneous Notes * Cerner Conversion Note - Haroldo ProviderMD - 10/15/2019 8:57 AM ENVIRONMENTAL TEST TECHNICIAN UM Authorization Entered On: 10/15/2019 8:57 EST Performed On: 10/15/2019 8:57 EST by Mary Haynes Rn-Utilization Review Primary Insurance Authorization Authorization and Policy Numbers : Insurance 1 Health Plan: [employer] Policy Number: [id number] Authorization Number: Insurance Primary Name : [employer] Policy Number: [id number] Authorization Status-Primary : Awaiting callback Reference Number-Primary : [id number] Authorized Service Begin Date-Primary : 10/14/2019 EST Authorization Comments-Primary : ref# per star notes Historical Authorization Comments-Primary : Comment 1: clinical faxed per norma for ip auth (Mary Haynes, Rn-Utilization Review 10/15/2019 08:55) Mary Haynes, Rn-Utilization Review - 10/15/2019 8:57 EST Electronically signed by [facility] Conversion Driver Salesman Cerner at 01/24/2023 10:43 AM CDT documented in this encounter Plan of Treatment Not on file documented as of this encounter Visit Diagnoses Not on filedocumented in this encounter Care Teams Gas Meter Prover Relationship Specialty Start Date End Date Marielos Amaral, HYDROELECTRIC PLANT STRUCTURAL ENGINEER [address] [place] [address] PCP - General Nurse Practitioner 08/18/23 documented as of this encounter
--- OUTSIDE RECORDS SUMMARY | 2025-05-19 12:29 | XMS_ITS | Encounter Summary ---
Author Organization [employer] ([place], [place], [place], [place]) Address [address] [place] [address] Care Team Providers Care Agency Trainer Name Role Phone Munir Marielos RESTREPO Primary Care Provider Encounter Details Date Type Department Care Team (Late st Contact Info) Description 04/24/2022 Transcribed Document [facility] Family Medicine [address] [place] [address] ProviderHaroldo MD [address] [place] [address] Social History Tobacco Use Types [...] Do you speak a language other than Ivorian at [facility]? Yes 10/30/2024 [...] Other (See Comment) Eliquis: 2.5 mg, Oral, W53CSbn Flomax: 0.4 mg, Oral, Daily Metoprolol Succinate ER: 50 mg, Oral, Daily Normal Saline 1,000 mL: 100 mL/Hr, IntraVENous Rocephin: 1 Gram, 100 mL/Hr, IV Piggyback, P73EAkf Tylenol: 650 mg, Oral, Q4H, PRN: Pain [...] mg tab 2.5 mg 1 Tab, Oral, A40FCns atorvastatin 40 mg tab 40 mg 1 Tab, Oral, At Bedtime cefTRIAXone 1 Gram, IV Piggyback, R28KOfc cholecalciferol 1,000 unit tab 1,000 Units 1 [...] list: Medical Atrial fibrillation / SNOMED CT 23238016 / Confirmed CAD - Coronary artery disease / SNOMED CT 5387036545 / Confirmed Cardiomyopathy / SNOMED CT 260910120 / Confirmed Acute cerebrovascular accident (CVA) / SNOMED CT 565232813 / Confirmed History of obstructive sleep apnea / IMO 66264861 / Confirmed HLD - Hyperlipidemia / SNOMED CT 332853173 / Confirmed HTN - Hypertension / SNOMED CT 1581599694 / Confirmed Type 2 diabetes mellitus / SNOMED CT 826295050 / Confirmed, Active Problems (20) Acute cerebrovascular [...] Gastrointestinal: Soft, Non-tender, Non-distended. Integumentary: Warm, Dry, [place]. Neurologic: Alert, Oriented, No focal deficits. Psychiatric: [...] renal diet. - No emergent need of INSPECTOR FLOOR SUB ASSEMBLY. Will follow. documented in this encounter Plan of Treatment Not on file documented as of this encounter Visit Diagnoses Not on filedocumented in this encounter Care Teams Agency Trainer Relationship Specialty Start Date End Date Marielos Amaral, MILLING PLANER OPERATOR [address] [address] PCP - General Nurse Practitioner 08/18/23 documented as of this encounter
--- OUTSIDE RECORDS SUMMARY | 2025-05-19 12:29 | XMS_ITS | Encounter Summary ---
Author Organization [employer] ([place], [place], [place], [place]) Address [address] [place] [address] Care Team Providers Care Application Engineer Name Role Phone Marielos Amaral KAYE Primary Care Provider Encounter Details Date Type Department Care Team (Late st Contact Info) Description 10/15/2019 Transcribed Document [facility] [place] [place] [address] [place] [address] ProviderHaroldo MD [address] [place] [address] Social History Tobacco Use Types Packs/Day Years Used Date Smoking Tobacco: Never Assessed Sex and Gender Information Value Date Recorded Sex Assigned at Not on file Legal Sex Male 3:45 PM CDT Gender Identity Not on file Sexual Orientation Not on file documented as of this encounter Miscellaneous Notes * Cerner Conversion Note - Haroldo ProviderMD - 10/15/2019 8:58 AM SCIENTIFIC AFFAIRS MANAGER FIELD SALES AGENT Attempt to Treat Entered On: 10/15/2019 8:58 EST Performed On: 10/15/2019 8:58 EST by BIPIN LEE SLP Attempt to Treat Unable to Treat Due To : Patient Unavailable Inability to Treat Comment : Patient is off unit for test, will follow up later in day. Notification : BIPIN HURLEY, RAMONA - 10/15/2019 8:58 EST Electronically signed by Brittany [facility] Conversion Roll Up Guider Operator Cerner at 01/24/2023 10:45 AM CDT documented in this encounter Plan of Treatment Not on file documented as of this encounter Visit Diagnoses Not on filedocumented in this encounter Care Teams Application Engineer Relationship Specialty Start Date End Date Marielos Amaral, TELESCOPE REPAIRER [address] [place] [address] PCP - General Nurse Practitioner 08/18/23 documented as of this encounter
--- OUTSIDE RECORDS SUMMARY | 2025-05-19 12:29 | XMS_ITS | Encounter Summary ---
Author Organization [employer] ([place], [place], [place], [place]) Address [address] [place] [address] Care Team Providers Care Medical Office Asst Name Role Phone Marielos Amaral APRN Primary Care Provider [phone] Encounter Details Date Type Department Care Team (Late st Contact Info) Description 10/17/2019 Transcribed Document [facility] Family Medicine [address] [place] [address] ProviderHaroldo MD [address] [place] [address] Social History Tobacco Use Types Packs/Day Years Used Date Smoking Tobacco: Never Assessed Sex and Gender Information Value Date Recorded Sex Assigned at Not on file Legal Sex Male 3:45 PM CDT Gender Identity Not on file Sexual Orientation Not on file documented as of this encounter Miscellaneous Notes * Cerner Conversion Note - Haroldo ProviderMD - 10/17/2019 1:46 PM RADIATION CONTROL SPECIALIST [facility] [address] [place] [place] [id number] DEION ANTOINE :1950 Visit Time:10/14/2019 Your Visit Summary Your Care Team Admitting Physician - PETRA TORRES MD-INT PHY, UNKNOWN FANY MCCRACKEN MD Attending Physician - PETRA TORRES MD-INT FANY MCCRACKEN MD Primary Care Physician - KATELYN MCKEON MD-[facility] Referring Physician - FANY MCCRACKEN MD [...] call for a follow up appointment with [facility] Neurology. Where: [address] [place] [id number] [facility] (1) Warfarin Instructions Indication for Warfarin [...] 12/26/2017 Document Revised: 12/26/2017 Document Reviewed: 12/26/2017 Britely Interactive Patient Education ?? 2019 [employer] Inc. Stroke Prevention Some medical conditions and [...] lot or have excessive sleepiness. ??? Take amtj-lqb-kxbbzug and prescription medicines only as told by [...] more information For more information, visit: ??? [place] Stroke Association: www.strokeassociation.org ??? National Stroke Association: [...] 10/30/2005 Document Revised: 10/28/2017 Document Reviewed: 10/28/2017 [employer] Interactive Patient Education ?? 2019 [employer]. nitroglycerin (oral/sublingual) ([place] troe GLI ser in [...] may report side effects to FDA at 0-687-OXS-2734. What other drugs will affect nitroglycerin? Tell your doctor about all your current medicines, especially: ?? aspirin, heparin; ?? medicine used to treat blood clots; ?? blood pressure medication; or ?? ergot medicine--dihydroergotamine, ergotamine, ergonovine, methylergonovine. This list is not complete and many other drugs may affect nitroglycerin. This includes prescription and kzkt-znq-hkdgcvk medicines, vitamins, and herbal products. Not all [...] to ensure that the information provided by [employer]. ('Multum') is accurate, up-to-date, and complete, but no guarantee is made to that effect. Drug information contained herein may be time sensitive. [employer] information has been compiled for use by healthcare practitioners and consumers in the [place] and therefore [employer] does not warrant that uses outside of the [place] are appropriate, unless specifically indicated otherwise. [employer]'s drug information does not endorse drugs, diagnose patients or recommend therapy. FiF[employer]s drug information is an informational resource designed [...] effective or appropriate for any given patient. [employer] does not assume any responsibility for any aspect of healthcare administered with the aid of information [employer] provides. The information contained herein is not intended to cover all possible uses, directions, precautions, warnings, drug interactions, allergic reactions, or adverse effects. If you have questions about the drugs you are taking, check with your doctor, nurse or pharmacist. Copyright 7522-4467 [employer]. Version: 15.01. Revision Date: 08/12/2019. levothyroxine (oral/injection) [...] may report side effects to FDA at 4-552-SWL-0262. What other drugs will affect levothyroxine? Many [...] can affect levothyroxine. This includes prescription and xcps-hhr-etmtltk medicines, vitamins, and herbal products. Not all [...] to ensure that the information provided by [employer]. ('Rennoviaum') is accurate, up-to-date, and complete, but no guarantee is made to that effect. Drug information contained herein may be time sensitive. [employer] information has been compiled for use by healthcare practitioners and consumers in the [place] and therefore [employer] does not warrant that uses outside of the [place] are appropriate, unless specifically indicated otherwise. [employer] drug information does not endorse drugs, diagnose patients or recommend therapy. [employer]s drug information is an informational resource designed [...] effective or appropriate for any given patient. [employer] does not assume any responsibility for any aspect of healthcare administered with the aid of information [employer] provides. The information contained herein is not intended to cover all possible uses, directions, precautions, warnings, drug interactions, allergic reactions, or adverse effects. If you have questions about the drugs you are taking, check with your doctor, nurse or pharmacist. Copyright 7128-4319 [employer]. Version: 13.04. Revision Date: 05/05/2019. Emergency Awareness [...] Assistance with quitting is available by contacting 3-814-WUCUNOW. This is a free resource providing counseling, support, and referral. Or you may contact your personal physician. [employer] Suicide Prevention Lifeline: The National Suicide Prevention [...] range between ( 0.0 and 7.0 ) [place] #: 0.73 K/uL -- Normal range between ( 0.16 and 1.00 ) Eos #: 0.12 x10(3)/uL -- Normal range between ( 0.00 and 0.80 ) [place] %: 8.7 % -- Normal range between [...] was given the opportunity to ask questions. Patient/Cane Piler Name: Patient/Cane Piler Signature: Relationship to Patient: Clinician/Hospital Cane Piler Signature: Date: Electronically signed by Brittany [facility] Conversion Finger Lift Operator [employer]ak at 01/24/2023 10:19 AM CDT documented in this encounter Plan of Treatment Not on file documented as of this encounter Visit Diagnoses Not on filedocumented in this encounter Care Teams Medical Office Asst Relationship Specialty Start Date End Date Marielos Amaral APRN [address] [address] PCP - General Nurse Practitioner 08/18/23 documented as of this encounter
--- OUTSIDE RECORDS SUMMARY | 2025-05-19 12:29 | XMS_ITS | Encounter Summary ---
Author Organization [employer] ([place], [place], [place], [place]) Address [address] [place] [address] Care Team Providers Care Painter Apprentice Name Role Phone Marielos Amaral KAYE Primary Care Provider Encounter Details Date Type Department Care Team (Late st Contact Info) Description 10/17/2019 Transcribed Document [facility] [place] Family Medicine [address] [place] [address] ProviderHaroldo MD [address] [place] [address] Social History Tobacco Use Types Packs/Day Years Used Date Smoking Tobacco: Never Assessed Sex and Gender Information Value Date Recorded Sex Assigned at Not on file Legal Sex Male 3:45 PM CDT Gender Identity Not on file Sexual Orientation Not on file documented as of this encounter Miscellaneous Notes * Cerner Conversion Note - Haroldo ProviderMD - 10/17/2019 12:15 PM CUSTOMER SERVICE ADVISOR Patient Education Materials Follows: Hospital Discharge After [...] 12/26/2017 Document Revised: 12/26/2017 Document Reviewed: 12/26/2017 maniaTV Interactive Patient Education ? 2019 [employer]iaTV Inc. Stroke Prevention Some medical conditions and [...] lot or have excessive sleepiness. ??? Take eozj-etq-pgevqxg and prescription medicines only as told by [...] For more information, visit: ??? Citizen Of [place] Stroke Association: www.strokeassociation.org ??? National Stroke Association: [...] 10/28/2017 Elsevier Interactive Patient Education ? 2019 maniaTV Inc. documented in this encounter Plan of Treatment Not on file documented as of this encounter Visit Diagnoses Not on filedocumented in this encounter Care Teams Painter Apprentice Relationship Specialty Start Date End Date Marielos Amaral APRN [address] [address] PCP - General Nurse Practitioner 08/18/23 documented as of this encounter
--- OUTSIDE RECORDS SUMMARY | 2025-05-19 12:29 | XMS_ITS | Encounter Summary ---
Author Organization [employer] ([place], [place], [place], [place]) Address [address] [place] [address] Care Team Providers Care Tie Bucker Name Role Phone Marielos Amaral APRN Primary Care Provider Encounter Details Date Type Department Care Team (Late st Contact Info) Description 10/17/2019 Transcribed Document [facility] [place] [address] [place] [address] ProviderHaroldo MD [address] [place] [address] Social History Tobacco Use Types Packs/Day Years Used Date Smoking Tobacco: Never Assessed Sex and Gender Information Value Date Recorded Sex Assigned at Not on file Legal Sex Male 3:45 PM CDT Gender Identity Not on file Sexual Orientation Not on file documented as of this encounter Miscellaneous Notes * Cerner Conversion Note - Haroldo ProviderMD - 10/17/2019 3:39 PM HOSPITALITY RECRUITER Patient: ZACKARY ANTOINE Age: 68 years Sex: Male : 1950 Associated Diagnoses: None Author: MAGED FORD MD-INT Subjective ADMIT DATE: 10/14/2018 DISCHARGE DATE: 10/17/2018 PCP: dr. Boubacar Ball ADMIT MD: dr. Lopes CONSULT TEAMS: [facility] Cardiology [facility] Neurology REASON FOR ADMIT: 68-year-old [...] (OCT 14) Radiology Results (Last 48 hours) [id number] -- 10/14/2019 17:19 CT Head WO (10/15/2019 [...] Daily FOLLOW UP: pcp in 2 weeks [facility] Cardiology in 1-[address] Krish Bose in 6 weeks I spent over 30 min today CC1: dr. Boubacar Ball CC2: [facility] Cardiology CC3: dr. Rutherford Electronically signed by Brittany [facility] Conversion Burrito Maker Kodak at 01/24/2023 10:35 AM CDT documented in this encounter Plan of Treatment Not on file documented as of this encounter Visit Diagnoses Not on filedocumented in this encounter Care Teams Tie Bucker Relationship Specialty Start Date End Date Marielos Amaral, RECRUITING SCHEDULER [address] [place] [address] PCP - General Nurse Practitioner 08/18/23 documented as of this encounter
--- OUTSIDE RECORDS SUMMARY | 2025-05-19 12:29 | XMS_ITS | Encounter Summary ---
Author Organization [employer] ([place], [place], [place], [place]) Address [address] [place] [address] Care Team Providers Care Operations Chief Name Role Phone Marielos Amaral APRN Primary Care Provider Encounter Details Date Type Department Care Team (Late st Contact Info) Description 10/16/2019 Transcribed Document [facility] Radiology [address] [place] [phone] Camilo Steven MD [address] [place] [address] Social History Tobacco Use Types Packs/Day Years [...] flowsheet : Measurements 10/15/2019 5:58 EST Height/Length, CROATIAN (ft) 5 ft Height/Length CROATIAN 9 Inch Routine Weight, Kilograms 87.5 kg [...] Normal strength, No deformity. Integumentary: Warm, Dry, [place], No rash. Neurologic: Alert, Oriented, No focal deficits. Psychiatric: Cooperative, Appropriate mood & affect. Results Review OCT 16 04:19 138 109 15 / H 134 3.8 24 1.30 \ Cardiac Markers (Current Encounter/Past 24 Hours) CK MB 1.20 ng/mL 10/15/2019 16:28 CK 101 Units/Liter 10/15/2019 04:57 Radiology Results (Last 48 hours) [id number] -- 10/14/2019 17:19 CR Chest 1 Vw [...] filedocumented in this encounter Care Teams Operations Chief Relationship Specialty Start Date End Date Marielos Amaral, KAYE [address] [place] [address] PCP - General Nurse Practitioner 11/13/23 documented as of this encounter
--- OUTSIDE RECORDS SUMMARY | 2025-05-19 12:29 | XMS_ITS | Encounter Summary ---
Author Organization [employer] ([place], [place], [place], [place]) Address [address] [place] [address] Care Team Providers Care Audioprosthologist Name Role Phone Marielos Amaral KAYE Primary Care Provider Encounter Details Date Type Department Care Team (Late st Contact Info) Description 10/17/2019 Transcribed Document [facility] [place] [address] [place] [address] ProviderHaroldo MD [address] [place] [address] Social History Tobacco Use Types Packs/Day Years Used Date Smoking Tobacco: Never Assessed Sex and Gender Information Value Date Recorded Sex Assigned at Not on file Legal Sex Male 3:45 PM CDT Gender Identity Not on file Sexual Orientation Not on file documented as of this encounter Miscellaneous Notes * Cerner Conversion Note - Haroldo ProviderMD - 10/17/2019 5:00 AM EARTHMOVING PLANT OPERATOR Chart Check - Review Order Profile Entered On: 10/17/2019 4:54 EST Performed On: 10/17/2019 5:00 EST by Vanessa Blake RN Chart Check Powerplans Initiated/Discontinued as Appropriate : Yes All Active Orders Reviewed : Yes Vanessa Blake RN - 10/17/2019 4:54 EST Electronically signed by Brittany [facility] Conversion Alley Tender Cerner at 01/24/2023 10:33 AM CDT documented in this encounter Plan of Treatment Not on file documented as of this encounter Visit Diagnoses Not on filedocumented in this encounter Care Teams Audioprosthologist Relationship Specialty Start Date End Date Marielos Amaral, HEAVY DUTY TRUCK MECHANIC [address] [place] [address] PCP - General Nurse Practitioner 08/18/23 documented as of this encounter
--- OUTSIDE RECORDS SUMMARY | 2025-05-19 12:29 | XMS_ITS | Encounter Summary ---
Author Organization [employer] ([place], [place], [place], [place]) Address [address] [place] [address] Care Team Providers Care Junior Technical Writer Name Role Phone Marielos Amaral KAYE Primary Care Provider Encounter Details Date Type Department Care Team (Late st Contact Info) Description 10/17/2019 Transcribed Document [facility] [place] [address] [place] [address] ProviderHaroldo MD [address] [place] [address] Social History Tobacco Use Types Packs/Day Years Used Date Smoking Tobacco: Never Assessed Sex and Gender Information Value Date Recorded Sex Assigned at Not on file Legal Sex Male 3:45 PM CDT Gender Identity Not on file Sexual Orientation Not on file documented as of this encounter Miscellaneous Notes * Cerner Conversion Note - Haroldo ProviderMD - 10/17/2019 11:41 AM PATIENT CARE ASSOCIATE Final Discharge Planning Entered On: 10/17/2019 11:42 EST Performed On: 10/17/2019 11:41 EST by HARITHA BARRIOS Rn-Junior Estimator Final Discharge Planning Discharge Arrangements : Patient Post-Acute Information Patient Name: ZACKARY ANTOINE Gender: Male : [birth year] Age: 68 Years No Post-Acute Placement(s) Listed No Post-Acute Service(s) Listed No Curaspan Referral(s) Listed Important Medicare Message Reviewed With : Patient Important Medicare Message Reviewed D/T : 10/17/2019 11:40 EST Follow Up Appointment Scheduled : No Discharge To Care Management : Home/Residential/Half-Way or Self Care - HARITHA BARRIOS Rn-Junior Estimator - 10/17/2019 11:41 EST Final Narrative Note Final Narrative Note : Transport home with spouse; unable to make f/u appt on weekend; pt verbalized he will contact his PCP to make appt. HARITHA BARRIOS Rn-Junior Estimator - 10/17/2019 11:41 EST documented in this encounter Plan of Treatment Not on file documented as of this encounter Visit Diagnoses Not on filedocumented in this encounter Care Teams Junior Technical Writer Relationship Specialty Start Date End Date Marielos Amaral APRN [address] [phone] PCP - General Nurse Practitioner 08/18/23 documented as of this encounter
--- OUTSIDE RECORDS SUMMARY | 2025-05-19 12:29 | XMS_ITS | Encounter Summary ---
Author Organization [employer] ([place], [place], [place], [place]) Address [address] [place] [address] Care Team Providers Care Compliance Director Name Role Phone Munir Marielos RESTREPO Primary Care Provider Encounter Details Date Type Department Care Team (Late st Contact Info) Description 04/25/2022 Transcribed Document [facility] [place] [address] [place] [address] ProviderHaroldo MD [address] [place] [address] Social History Tobacco Use Types [...] does anyone, zehra havrey family and friends, scream or curse at [...] speak a language other than Spanish at [facility]? Yes 10/30/2024 Do [...] On: 04/25/2022 16:19 EDT by LEXX LOWRY RN-Train Brake Operator Initial Assessment I Previously Documented Living Environment : No qualifying data available. Living Situation : Home Patient Lives With : Spouse Emergency Contact #1 : Kar Carrasco Emergency Contact #1 Emergency Contact #1 Relationship : Emergency Contact #2 : January Billings Emergency Contact #2 Emergency Contact #2 Relationship : daughter Identified Medical Decision Maker : self 2nd Ident. Medical Decision Maker : Kar Carrasco 2nd Ident. Medical Decision Maker Secondary Number of People in Class : 1 2nd Ident. Medical Decision Maker Class : Medical Durable Power of Cigarette Making Machine Hopper Feeder Name : None on file Legal Guardian : No Is Guardianship Needed : No LEXX LOWRY RN-Train Brake Operator - 04/25/2022 16:19 EDT Initial Assessment II Sensory and Motor Deficits : None Current Home Treatments and Equipment : Bedside commode, Blood glucose monitor, Cane, CPAP, Shower chair, Walker Does the Patient have a Floor to SNF Benefit? : No LEXX LOWRY RN-Train Brake Operator - 04/25/2022 16:19 EDT Discharge Needs I Anticipated Discharge Date : 04/27/2022 EDT Anticipated Discharge To, CM : Home with family care Current Home Treatment/Equipment : Current Home Treatment/Equipment No qualifying data available. Post Acute/Home Treatments : None Documentation Status Complete : Yes LEXX LOWRY RN-Train Brake Operator - 04/25/2022 16:19 EDT Discharge Needs II Professional Skilled Services : Professional Skilled Services No qualifying data available. Needs Assistance with Transportation : No Discharge Options Discussed with Patient : DME, Home Health Patient Discharge Goal : Home LEXX LOWRY, RN-Train Brake Operator - 04/25/2022 16:19 EDT documented in this encounter Plan of Treatment Not on file documented as of this encounter Visit Diagnoses Not on filedocumented in this encounter Care Teams Compliance Director Relationship Specialty Start Date End Date Marielos Amaral, DIVISION LEADER [address] [place] [address] PCP - General Nurse Practitioner 08/18/23 documented as of this encounter
--- OUTSIDE RECORDS SUMMARY | 2025-05-19 12:29 | XMS_ITS | Encounter Summary ---
Author Organization [employer] ([place], [place], [place], [place]) Address [address] [place] [address] Care Team Providers Care Striper Name Role Phone Marielos Amaral KAYE Primary Care Provider Encounter Details Date Type Department Care Team (Late st Contact Info) Description 04/25/2022 Transcribed Document [facility] Radiology [address] [place], [place] [id number] Saba Neal MD [address] [place] [address] [address] [place] [address] Social History Tobacco Use Types [...] Do you speak a language other than Turkish at [facility]? Yes 10/30/2024 [...] Other (See Comment) Eliquis: 2.5 mg, Oral, [id number] Flomax: 0.4 mg, Oral, Daily Lokelma: 15 Gram, Oral, 1-Time Metoprolol Succinate ER: 50 mg, Oral, Daily Normal Saline 1,000 mL: 100 mL/Hr, IntraVENous Rocephin: 1 Gram, 100 mL/Hr, IV Piggyback, [id number] Tylenol: 650 mg, Oral, Q4H, PRN: Pain [...] mg tab 2.5 mg 1 Tab, Oral, [id number] atorvastatin 40 mg tab 40 mg 1 Tab, Oral, At Bedtime cefTRIAXone 1 Gram, IV Piggyback, L52GWsw cholecalciferol 1,000 unit tab 1,000 Units 1 [...] list: Medical Atrial fibrillation / SNOMED CT 68102343 / Confirmed CAD - Coronary artery disease / SNOMED CT 8969718965 / Confirmed Cardiomyopathy / SNOMED CT 978031748 / Confirmed Acute cerebrovascular accident (CVA) / SNOMED CT 960726285 / Confirmed History of obstructive sleep apnea / IMO [id number] / Confirmed HLD - Hyperlipidemia / SNOMED CT 828015597 / Confirmed HTN - Hypertension / SNOMED CT 5183080142 / Confirmed Type 2 diabetes mellitus / SNOMED CT 138079279 / Confirmed, Active Problems (20) Acute cerebrovascular [...] 27.6 \ Radiology Results (Last 48 hours) [id number] -- 04/22/2022 12:30 US Renal Comp (04/23/2022 [...] on filedocumented in this encounter Care Teams Striper Relationship Specialty Start Date End Date Marielos Amaral, PANTRY GOODS MAKER [address] [place] [address] PCP - General Nurse Practitioner 08/18/23 documented as of this encounter
--- OUTSIDE RECORDS SUMMARY | 2025-05-19 12:29 | XMS_ITS | Encounter Summary ---
Author Organization [employer] ([place], [place], [place], [place]) Address [address] [place] [address] Care Team Providers Care Tank Shop Supervisor Name Role Phone Marielos Amaral KAYE Primary Care Provider Encounter Details Date Type Department Care Team (Late st Contact Info) Description 10/16/2019 Transcribed Document [facility] [place] Medicine [address] [place] [address] ProviderHaroldo MD [address] [place] [address] Social History Tobacco Use Types Packs/Day Years Used Date Smoking Tobacco: Never Assessed Sex and Gender Information Value Date Recorded Sex Assigned at Not on file Legal Sex Male 3:45 PM CDT Gender Identity Not on file Sexual Orientation Not on file documented as of this encounter Miscellaneous Notes * Cer[employer]ude Conversion Note - Haroldo ProviderMD - 10/16/2019 5:00 PM CUSTOM MARINE CANVAS FABRICATOR Chart Check - Review Order Profile Entered On: 10/16/2019 17:15 EST Performed On: 10/16/2019 17:00 EST by Deysi Valdes RN Chart Check Powerplans Initiated/Discontinued as Appropriate : Yes All Active Orders Reviewed : Yes Deysi Valdes RN - 10/16/2019 17:15 EST Electronically signed by Brittany [facility] Conversion Knurling Machine Operator Cerner at 01/24/2023 10:45 AM CDT documented in this encounter Plan of Treatment Not on file documented as of this encounter Visit Diagnoses Not on filedocumented in this encounter Care Teams Tank Shop Supervisor Relationship Specialty Start Date End Date Marielos Amaral, PORT TRAFFIC MANAGER [address] [place] [address] PCP - General Nurse Practitioner 08/18/23 documented as of this encounter
--- OUTSIDE RECORDS SUMMARY | 2025-05-19 12:29 | XMS_ITS | Encounter Summary ---
Author Organization [employer] ([place], [place], [place], [place]) Address [address] [place] [address] Care Team Providers Care Light Cleaner Name Role Phone Marielos Amaral KAYE Primary Care Provider Encounter Details Date Type Department Care Team (Late st Contact Info) Description 10/15/2019 Transcribed Document [facility] [place] [address] [place] [address] ProviderHaroldo MD [address] [place] [address] Social History Tobacco Use Types Packs/Day Years Used Date Smoking Tobacco: Never Assessed Sex and Gender Information Value Date Recorded Sex Assigned at Not on file Legal Sex Male 3:45 PM CDT Gender Identity Not on file Sexual Orientation Not on file documented as of this encounter Miscellaneous Notes * Cerner Conversion Note - Haroldo ProviderMD - 10/15/2019 3:31 PM KNOWLEDGE MANAGEMENT ADVISOR Final Discharge Planning Entered On: 10/15/2019 15:31 EST Performed On: 10/15/2019 15:31 EST by HARITHA BARRIOS Rn-Help Desk Administrator Final Discharge Planning Discharge Arrangements : Patient Post-Acute Information Patient Name: ZACKARY ANTOINE Gender: Male : [birth year] Age: 68 Years No Post-Acute Placement(s) Listed No Post-Acute Service(s) Listed No Curaspan Referral(s) Listed Important Medicare Message Reviewed With : Patient Important Medicare Message Reviewed D/T : 10/15/2019 15:20 EST HARITHA BARRIOS, Rn-Help Desk Administrator - 10/15/2019 15:31 EST Electronically signed by Brittany [facility] Conversion Backing In Machine Tender Cerner at 01/24/2023 10:37 AM CDT documented in this encounter Plan of Treatment Not on file documented as of this encounter Visit Diagnoses Not on filedocumented in this encounter Care Teams Light Cleaner Relationship Specialty Start Date End Date Marielos Amaral, WOOD FURNITURE ASSEMBLER [address] [place] [address] PCP - General Nurse Practitioner 08/18/23 documented as of this encounter
--- OUTSIDE RECORDS SUMMARY | 2025-05-19 12:29 | XMS_ITS | Encounter Summary ---
Author Organization [employer] ([place], [place], [place], [place]) Address [address] [place] [address] Care Team Providers Care Payroll And Benefits Manager Name Role Phone Marielos Amaral KAYE Primary Care Provider Encounter Details Date Type Department Care Team (Late st Contact Info) Description 04/24/2022 Transcribed Document [facility] Radiology [address] [place], [place] [phone] Saba Neal MD [address] [place] [address] [address] [place] [address] Social History Tobacco Use Types Packs/Day Years [...] Do you speak a language other than Hungarian at [facility]? Yes 10/30/2024 [...] on filedocumented in this encounter Care Teams Payroll And Benefits Manager Relationship Specialty Start Date End Date Marielos Amaral, WIRE SPLICER [address] [place] [id number] PCP - General Nurse Practitioner 08/18/23 documented as of this encounter
--- OUTSIDE RECORDS SUMMARY | 2025-05-19 12:29 | XMS_ITS | Encounter Summary ---
Author Organization [email or web address] ([place], [place], [place], [place]) Address [address] [place] [address] Care Team Providers Care Disk And Tape Machine Tender Name Role Phone Marielos Amaral THERMOSTATIC CONTROLS SUPERVISOR Primary Care Provider Encounter Details Date Type Department Care Team (Late st Contact Info) Description 10/16/2019 Transcribed Document [facility] [place] Family Medicine [address] [place] [address] ProviderHaroldo MD [address] [place] [address] Social History Tobacco Use Types Packs/Day Years Used Date Smoking Tobacco: Never Assessed Sex and Gender Information Value Date Recorded Sex Assigned at Not on file Legal Sex Male 3:45 PM CDT Gender Identity Not on file Sexual Orientation Not on file documented as of this encounter Miscellaneous Notes * Cerner Conversion Note - Haroldo ProviderMD - 10/16/2019 3:33 PM TUNNEL ELASTIC OPERATOR CHAINSTITCH Patient: ZACKARY ANTOINE Age: 68 years Sex: [...] Shortness of Breath Eliquis: 5 mg, Oral, V41XTdd Flomax: 0.4 mg, Oral, Daily Metoprolol Succinate [...] 5 mg oral tablet: 1 Tab, Oral, O61QWmh, 60 Tab, 0 Refill(s) Toprol-XL 25 mg [...] tablet 5 mg = 1 Tab, Oral, R78GJxy Eliquis 5 mg oral tablet 5 mg [...] mg tab 5 mg 1 Tab, Oral, B44CPfp atorvastatin 40 mg tab 40 mg 1 [...] History of obstructive sleep apnea / IMO [id number] / Confirmed, Active Problems (13) Angina Coronary [...] (OCT 14) Radiology Results (Last 48 hours) [id number] -- 10/14/2019 17:19 CT Head WO Code [...] on filedocumented in this encounter Care Teams Disk And Tape Machine Tender Relationship Specialty Start Date End Date Marielos Amaral, THERMOSTATIC CONTROLS SUPERVISOR [address] [place] [address] PCP - General Nurse Practitioner 08/18/23 documented as of this encounter
--- OUTSIDE RECORDS SUMMARY | 2025-05-19 12:29 | XMS_ITS | Encounter Summary ---
Author Organization [employer] ([place], [place], [place], [place]) Address [address] [place] [address] Care Team Providers Care Concrete Technician Name Role Phone Marielos Amaral KAYE Primary Care Provider Encounter Details Date Type Department Care Team (Late st Contact Info) Description 10/15/2019 Transcribed Document [facility] [place] [address] [place] [address] ProviderHaroldo MD [address] [place] [address] Social History Tobacco Use Types Packs/Day Years Used Date Smoking Tobacco: Never Assessed Sex and Gender Information Value Date Recorded Sex Assigned at Not on file Legal Sex Male 3:45 PM CDT Gender Identity Not on file Sexual Orientation Not on file documented as of this encounter Miscellaneous Notes * Cerner Conversion Note - Haroldo ProviderMD - 10/15/2019 8:55 AM OPERATIONS MANAGEMENT PROFESSIONALS UM Authorization Entered On: 10/15/2019 8:56 EST Performed On: 10/15/2019 8:55 EST by Mary Haynes Rn-Utilization Review Primary Insurance Authorization Authorization and Policy Numbers : Insurance 1 Health Plan: [employer] Policy Number: [id number] Authorization Number: Insurance Primary Name : [employer] Policy Number: [id number] Authorization Status-Primary : Awaiting callback Reference Number-Primary : [id number] Authorized Service Begin Date-Primary : 10/14/2019 EST Authorization Comments-Primary : clinical faxed per norma for ip auth Historical Authorization Comments-Primary : No Authorization Comments Found Mary Haynes Rn-Utilization Review - 10/15/2019 8:55 EST documented in this encounter Plan of Treatment Not on file documented as of this encounter Visit Diagnoses Not on filedocumented in this encounter Care Teams Concrete Technician Relationship Specialty Start Date End Date Marielos Amaral, CREPE MACHINE OPERATOR [address] [place] [address] PCP - General Nurse Practitioner 08/18/23 documented as of this encounter
--- OUTSIDE RECORDS SUMMARY | 2025-05-19 12:29 | XMS_ITS | Encounter Summary ---
Author Organization [employer] ([place], [place], [place], [place]) Address [address] [place] [address] Care Team Providers Care Linen Room Houseperson Name Role Phone Marielos Amaral SUPERVISOR STAGE CARPENTRY Primary Care Provider Encounter Details Date Type Department Care Team (Late st Contact Info) Description 01/20/2019 Transcribed Document [facility] [place] [address] [place] [address] ProviderHaroldo MD [address] [place] [address] Social History Tobacco Use Types Packs/Day Years Used Date Smoking Tobacco: Never Assessed Sex and Gender Information Value Date Recorded Sex Assigned at Not on file Legal Sex Male 3:45 PM CDT Gender Identity Not on file Sexual Orientation Not on file documented as of this encounter Miscellaneous Notes * Cerner Conversion Note - Haroldo ProviderMD - 01/20/2019 2:38 PM CDT [address] [address] ELINA ZACKARY COOK :1950 Visit [...] up with Dr Lopez as needed Where: [address] [place] [address]- Medications What How Much When Instructions Next [...] Document Reviewed: 12/01/2012 ExitCare?? Patient Information ??2015 [employer]. This information is not intended to replace [...] including vitamins, herbs, eye drops, creams, and yutb-qep-jwxegyj medicines. ???Previous problems you or members of [...] Document Reviewed: 08/25/2013 ExitCare?? Patient Information ??2015 [employer]. This information is not intended to replace [...] including vitamins, herbs, eye drops, creams, and ljlr-gjy-fqdfern medicines. ??? Previous problems you or members [...] 07/13/2014 Document Revised: 10/13/2015 Document Reviewed: 07/13/2014 [employer] Interactive Patient Education ?? 2017 [employer]. Emergency Awareness and Preventative Care STROKE is [...] Assistance with quitting is available by contacting 5-762-ALOB-NOW. This is a free resource providing counseling, [...] Be sure to sign up for the [facility] patient portal, which gives you 28/04 access to your medical information ??? including these discharge instructions ??? using your computer, smartphone, or tablet. Just go to [employer] to get started. Questions? Call . Test Results Laboratory or Other Results This Visit (last charted value for your 01/20/2019 visit) General Chemistry 01/20/19 12:42:00 Glucose POC2: 182 mg/dL -- Normal range between ( 70 and 110 ) Patient Name:ZACKARY ANTOINE I have received this information and was given the opportunity to ask questions. Patient/Explosives Handler Name: Patient/Explosives Handler Signature: Relationship to Patient: Clinician/Hospital Explosives Handler Signature: Date: documented in this encounter Plan of Treatment Not on file documented as of this encounter Visit Diagnoses Not on filedocumented in this encounter Care Teams Linen Room Houseperson Relationship Specialty Start Date End Date Marielos Amaral, SUPERVISOR STAGE CARPENTRY [address] [place] [phone] PCP - General Nurse Practitioner 08/18/23 documented as of this encounter
--- OUTSIDE RECORDS SUMMARY | 2025-05-19 12:29 | XMS_ITS | Encounter Summary ---
Author Organization [employer] ([place], [place], [place], [place]) Address [address] [place] [address] Care Team Providers Care Seismology Technical Officer Name Role Phone Marielos Amaral KAYE Primary Care Provider [phone] Encounter Details Date Type Department Care Team (Late st Contact Info) Description 10/16/2019 Transcribed Document [facility] [place] [address] [place] [address] ProviderHaroldo MD [address] [place] [address] Social History Tobacco Use Types Packs/Day Years Used Date Smoking Tobacco: Never Assessed Sex and Gender Information Value Date Recorded Sex Assigned at Not on file Legal Sex Male 3:45 PM CDT Gender Identity Not on file Sexual Orientation Not on file documented as of this encounter Miscellaneous Notes * Cerner Conversion Note - Haroldo ProviderMD - 10/16/2019 5:00 AM CONTRACTOR FIELD HAULING Chart Check - Review Order Profile Entered On: 10/16/2019 5:38 EST Performed On: 10/16/2019 5:00 EST by Vanessa Blake RN Chart Check Powerplans Initiated/Discontinued as Appropriate : Yes All Active Orders Reviewed : Yes Vanessa Blake RN - 10/16/2019 5:38 EST Electronically signed by Brittany [facility] Conversion Neonatal Critical Care Nurse Cerner at 01/24/2023 10:29 AM CDT documented in this encounter Plan of Treatment Not on file documented as of this encounter Visit Diagnoses Not on filedocumented in this encounter Care Teams Seismology Technical Officer Relationship Specialty Start Date End Date Marielos Amaral, CONSULTING SOLUTION MANAGER [address] [place] [address] PCP - General Nurse Practitioner 08/18/23 documented as of this encounter
--- OUTSIDE RECORDS SUMMARY | 2025-05-19 12:29 | XMS_ITS | Encounter Summary ---
Author Organization [employer] ([place], [place], [place], [place]) Address [address] [place] [address] Care Team Providers Care Laser Engineer Name Role Phone Marielos Amaral KAYE Primary Care Provider [phone] Encounter Details Date Type Department Care Team (Late st Contact Info) Description 10/15/2019 Transcribed Document [facility] [place] [address] [place] [address] ProviderHaroldo MD [address] [place] [address] Social History Tobacco Use Types Packs/Day Years Used Date Smoking Tobacco: Never Assessed Sex and Gender Information Value Date Recorded Sex Assigned at Not on file Legal Sex Male 3:45 PM CDT Gender Identity Not on file Sexual Orientation Not on file documented as of this encounter Miscellaneous Notes * Cerner Conversion Note - Haroldo ProviderMD - 10/15/2019 9:32 AM PECAN SHELLER Patient: ZACKARY ANTOINE Age: 68 years Sex: [...] on filedocumented in this encounter Care Teams Laser Engineer Relationship Specialty Start Date End Date Marielos Amaral APRN [address] [address] PCP - General Nurse Practitioner 08/18/23 documented as of this encounter
--- OUTSIDE RECORDS SUMMARY | 2025-05-19 12:29 | XMS_ITS | Encounter Summary ---
Author Organization [employer] ([place], [place], [place], [place]) Address [address] [place] [address] Care Team Providers Care Tailor Fitter Name Role Phone Marielos Amaral APRN Primary Care Provider [phone] Encounter Details Date Type Department Care Team (Late st Contact Info) Description 10/17/2019 Transcribed Document [facility] Family Medicine [address] [place] [address] ProviderHaroldo MD [address] [place] [address] Social History Tobacco Use Types Packs/Day Years Used Date Smoking Tobacco: Never Assessed Sex and Gender Information Value Date Recorded Sex Assigned at Not on file Legal Sex Male 3:45 PM CDT Gender Identity Not on file Sexual Orientation Not on file documented as of this encounter Miscellaneous Notes * Cerner Conversion Note - Haroldo ProviderMD - 10/17/2019 1:38 PM HIGH LIFT MULE OPERATOR [facility] [address] [place] [id number] DEION ANTOINE :1950 Visit Time:10/14/2019 Your Visit Summary Your Care Team Admitting Physician - PETRA TORRES MD-INT PH[facility], UNKNOWN FANY MCCRACKEN MD Attending Physician - PETRA TORRES MD-INT FANY MCCRACKEN MD Primary Care Physician - [facility] Referring Physician - FANY MCCRACKEN [...] controlled) Follow-Up Appointments Follow Up with [facility] Cardiology When Within 1 to 2 weeks Comments for stress test Follow Up with Follow up with primary care provider When Within 2 weeks Comments check TSH Follow Up with ALBERTO RIZVI When Within 6 weeks Comments Patient should call for a follow up appointment with [facility] Neurology. Where: [address] [place] [address] [place] (1) Warfarin Instructions Indication for Warfarin Anticoagulation: [...] 12/26/2017 Document Revised: 12/26/2017 Document Reviewed: 12/26/2017 [employer] Interactive Patient Education ?? 2019 [employer] Stroke Prevention Some medical conditions and [...] lot or have excessive sleepiness. ??? Take mcpm-vcu-gswmsdi and prescription medicines only as told by [...] more information For more information, visit: ??? [place] Stroke Association: www.strokeassociation.org ??? National Stroke Association: [...] 10/30/2005 Document Revised: 10/28/2017 Document Reviewed: 10/28/2017 [employer] Interactive Patient Education ?? 2019 Postling. nitroglycerin (oral/sublingual) ([place] troe GLI ser in [...] may report side effects to FDA at 6-343-NFV-1707. What other drugs will affect nitroglycerin? Tell your doctor about all your current medicines, especially: ?? aspirin, heparin; ?? medicine used to treat blood clots; ?? blood pressure medication; or ?? ergot medicine--dihydroergotamine, ergotamine, ergonovine, methylergonovine. This list is not complete and many other drugs may affect nitroglycerin. This includes prescription and qvzp-ovd-gzlifpj medicines, vitamins, and herbal products. Not all [...] to ensure that the information provided by [employer]. ('[employer]') is accurate, up-to-date, and complete, but no guarantee is made to that effect. Drug information contained herein may be time sensitive. [employer] information has been compiled for use by healthcare practitioners and consumers in the [place] and therefore [employer] does not warrant that uses outside of the [place] are appropriate, unless specifically indicated otherwise. [employer] drug information does not endorse drugs, diagnose patients or recommend therapy. [employer] drug information is an informational resource designed [...] effective or appropriate for any given patient. [employer] does not assume any responsibility for any aspect of healthcare administered with the aid of information [employer] provides. The information contained herein is not intended to cover all possible uses, directions, precautions, warnings, drug interactions, allergic reactions, or adverse effects. If you have questions about the drugs you are taking, check with your doctor, nurse or pharmacist. Copyright 2350-8254 [employer]. Version: 15.01. Revision Date: 08/12/2019. levothyroxine (oral/injection) [...] may report side effects to FDA at 9-484-UQX-4308. What other drugs will affect levothyroxine? Many [...] can affect levothyroxine. This includes prescription and tbrk-hyo-vpmpwkd medicines, vitamins, and herbal products. Not all [...] to ensure that the information provided by [employer]') is accurate, up-to-date, and complete, but no guarantee is made to that effect. Drug information contained herein may be time sensitive. [employer] information has been compiled for use by healthcare practitioners and consumers in the [place] and therefore [employer] does not warrant that uses outside of the [place] are appropriate, unless specifically indicated otherwise. [employer] drug information does not endorse drugs, diagnose patients or recommend therapy. [employer] drug information is an informational resource designed [...] effective or appropriate for any given patient. [employer] does not assume any responsibility for any aspect of healthcare administered with the aid of information [employer] provides. The information contained herein is not intended to cover all possible uses, directions, precautions, warnings, drug interactions, allergic reactions, or adverse effects. If you have questions about the drugs you are taking, check with your doctor, nurse or pharmacist. Copyright 8702-1867 [employer]. Version: 13.04. Revision Date: 05/05/2019. Emergency Awareness [...] Assistance with quitting is available by contacting 1-132-MREB-NOW. This is a free resource providing counseling, support, and referral. Or you may contact your personal physician. [employer] Suicide Prevention Lifeline: The National Suicide Prevention [...] range between ( 0.0 and 7.0 ) [place] #: 0.73 K/uL -- Normal range between ( 0.16 and 1.00 ) [place] #: 0.12 x10(3)/uL -- Normal range between ( 0.00 and 0.80 ) [place] %: 8.7 % -- Normal range between [...] was given the opportunity to ask questions. Patient/Drive In Theater Attendant Name: Patient/Drive In Theater Attendant Signature: Relationship to Patient: Clinician/Hospital Drive In Theater Attendant Signature: Date: Electronically signed by Renetta Soto Conversion Shell Mold Bonding Machine Operator [employer] at 01/24/2023 10:31 AM CDT documented in this encounter Plan of Treatment Not on file documented as of this encounter Visit Diagnoses Not on filedocumented in this encounter Care Teams Tailor Fitter Relationship Specialty Start Date End Date Marielos Amaral APRN [address] [address] PCP - General Nurse Practitioner 08/18/23 documented as of this encounter
--- OUTSIDE RECORDS SUMMARY | 2025-05-19 12:29 | XMS_ITS | Encounter Summary ---
Author Organization [employer] ([place], [place], [place], [place]) Address [address] [place] [address] Care Team Providers Care Supervisor Shipfitters Name Role Phone Munir Marielos RESTREPO Primary Care Provider Encounter Details Date Type Department Care Team (Late st Contact Info) Description 04/24/2022 Transcribed Document [facility] [place] [address] [place] [address] ProviderHaroldo MD [address] [place] [address] Social History Tobacco Use [...] Do you speak a language other than Congolese at [facility]? Yes 10/30/2024 Do you want help with [...] 04/24/2022 13:02 EDT Electronically signed by Brittany [facility] Conversion Motion Picture Actor Cerner at 01/24/2023 10:35 AM CDT documented in this encounter Plan of Treatment Not on file documented as of this encounter Visit Diagnoses Not on filedocumented in this encounter Care Teams Supervisor Shipfitters Relationship Specialty Start Date End Date Marileos Amaral, GARBAGE TRUCK DISPATCHER [address] [place] [address] PCP - General Nurse Practitioner 08/18/23 documented as of this encounter
--- OUTSIDE RECORDS SUMMARY | 2025-05-19 12:29 | XMS_ITS | Encounter Summary ---
Author Organization [employer] ([place], [place], [place], [place]) Address [address] [place] [address] Care Team Providers Care Monotype Operator Name Role Phone Marielos Amaral EVISCERATOR Primary Care Provider Encounter Details Date Type Department Care Team (Late st Contact Info) Description 01/20/2019 Transcribed Document [facility] [place] [address] [place] [address] ProviderHaroldo MD [address] [place] [address] Social History Tobacco Use Types Packs/Day Years Used Date Smoking Tobacco: Never Assessed Sex and Gender Information Value Date Recorded Sex Assigned at Not on file Legal Sex Male 3:45 PM CDT Gender Identity Not on file Sexual Orientation Not on file documented as of this encounter Miscellaneous Notes * Cerner Conversion Note - Haroldo ProviderMD - 01/20/2019 2:38 PM CDT [address] [address] ELINA ZACKARY COOK :1950 Visit [...] up with Dr Lopez as needed Where: [address] [place] [address]- Medications What How Much When Instructions Next [...] Document Reviewed: 12/01/2012 ExitCare?? Patient Information ??2015 [employer]. This information is not intended to replace [...] including vitamins, herbs, eye drops, creams, and vjgw-ucy-rnvowom medicines. ???Previous problems you or members of [...] Document Reviewed: 08/25/2013 ExitCare?? Patient Information ??2015 [employer]. This information is not intended to replace [...] including vitamins, herbs, eye drops, creams, and jjke-zly-gcxidag medicines. ??? Previous problems you or members [...] 07/13/2014 Document Revised: 10/13/2015 Document Reviewed: 07/13/2014 [employer] Interactive Patient Education ?? 2017 [employer]. Emergency Awareness and Preventative Care STROKE is [...] Assistance with quitting is available by contacting 8-719-KJZO-NOW. This is a free resource providing counseling, [...] Be sure to sign up for the [facility] patient portal, which gives you 28/04 access to your medical information ??? including these discharge instructions ??? using your computer, smartphone, or tablet. Just go to [employer] to get started. Questions? Call . Test Results Laboratory or Other Results This Visit (last charted value for your 01/20/2019 visit) General Chemistry 01/20/19 12:42:00 Glucose POC2: 182 mg/dL -- Normal range between ( 70 and 110 ) Patient Name:ZACKARY ANTOINE I have received this information and was given the opportunity to ask questions. Patient/Oracle Fusion Middleware Architect Name: Patient/Oracle Fusion Middleware Architect Signature: Relationship to Patient: Clinician/Hospital Oracle Fusion Middleware Architect Signature: Date: Electronically signed by Brittany, Renetta Conversion Avionics Integration Engineer [employer] at 01/24/2023 10:26 AM CDT documented in this encounter Plan of Treatment Not on file documented as of this encounter Visit Diagnoses Not on filedocumented in this encounter Care Teams Monotype Operator Relationship Specialty Start Date End Date Marielos Amaral, EVISCERATOR [address] [id number] PCP - General Nurse Practitioner 08/18/23 documented as of this encounter
--- OUTSIDE RECORDS SUMMARY | 2025-05-19 12:29 | XMS_ITS | Encounter Summary ---
Author Organization [employer] ([place], [place], [place], [place]) Address [address] [place] [address] Care Team Providers Care Extension Service Specialist Name Role Phone AmaralMarlyMarielosgrace RESTREPO Primary Care Provider Encounter Details Date Type Department Care Team (Late st Contact Info) Description 10/15/2019 Transcribed Document [facility] Family Medicine [address] [place] [address] ProviderHaroldo MD [address] [place] [address] Social History Tobacco Use Types Packs/Day Years Used Date Smoking Tobacco: Never Assessed Sex and Gender Information Value Date Recorded Sex Assigned at Not on file Legal Sex Male 3:45 PM CDT Gender Identity Not on file Sexual Orientation Not on file documented as of this encounter Miscellaneous Notes * Cerner Conversion Note - Historical ProviderMD - 10/15/2019 8:30 AM INFORMATION SYSTEMS PLANNER Attempt to Treat Entered On: 10/15/2019 8:38 EST Performed On: 10/15/2019 8:30 EST by JORDYN HART Attempt to Treat Unable to Treat Due To : Patient Unavailable Inability to Treat Comment : Getting a bedside ECHO JORDYN HART - 10/15/2019 8:34 EST Electronically signed by Brittany [facility] Conversion Legal Recovery Specialist Cerner at 01/24/2023 10:39 AM CDT documented in this encounter Plan of Treatment Not on file documented as of this encounter Visit Diagnoses Not on filedocumented in this encounter Care Teams Extension Service Specialist Relationship Specialty Start Date End Date AmaralMarielos, IMMIGRATION OFFICER [address] [place] [address] PCP - General Nurse Practitioner 08/18/23 documented as of this encounter
[2025-05-19 12:32] LABS: Hematocrit 38.1 % (42.0-52.0); Hemoglobin 13.0 g/dL (14.1-18.0); Immature Granulocytes % 0.7 %; Mean Corpuscular HGB Conc 34.1 g/dL (31.8-35.4); Mean Corpuscular Hemoglobin 30.1 pg (27.0-31.2); Mean Corpuscular Volume 88.2 fl (80-94); Nucleated Red Blood Cells % 0 %; Platelet Count 286 K/mm3 (142-424); Red Blood Count 4.32 M/mm3 (4.60-6.20); Red Cell Distribution Width-SD 48.8 fL; White Blood Count 14.5 K/mm3 (4.8-10.8)
[2025-05-19 12:53] LABS: Alanine Aminotransferase 43 U/L (12-78); Albumin Level 4.3 g/dl (3.5-5.0); Albumin/Globulin Ratio 1.2 (1.1-1.8); Alkaline Phosphatase 125 U/L (38-126); Anion Gap 12.6 mEq/L (5-15); Aspartate Amino Transferase 43 U/L (17-59); Bilirubin,Total 0.6 mg/dl (0.2-1.3); Blood Urea Nitrogen 62 mg/dl (9-20); Calcium 8.9 mg/dl (8.4-10.2); Carbon Dioxide 29 mmol/L (22.0-30.0); Chloride 95 mmol/L (98-107); Creatinine Clearance Estimated 20 mL/min (50-200); Creatinine,Serum 3.70 mg/dl (0.66-1.25); Estimated Glomerular Filt Rate 16 ml/min (>60); GFR (African American) 20 ML/MIN (>60); Globulin 3.5 g/dL (1.3-3.2); Potassium 3.6 mmoL/L (3.5-5.1); Sodium 133 mmol/L (136-145); Total Protein,Serum 7.8 g/dl (6.3-8.2)
[2025-05-19 13:00] LABS: Glucose 48 mg/dl (74-100)
[2025-05-19 13:06] LABS: Troponin I 0.05 ng/ml (0.00-0.034)
--- NOTE | 2025-05-19 14:10 | PC.NURSE ---
DR FAROOQ SPEAKING WITH DR BECERRA
--- NOTE | 2025-05-19 14:14 | HMH.EDCP ---
Discharge Plan Disposition Patient Disposition: Home, Self-Care Clinical Impressions Clinical Impression: Chest pain, Ventricular ectopy, Acute heart failure with reduced ejection fraction (HFrEF) Discharge ED Provider: Walker Damon General Chief Complaint: Chest Pain Stated Complaint: chest pain Time Seen by Provider: 05/19/25 13:58 Mode of Arrival: EMS Source of Information: Patient and EMS Description of Symptoms (Recalled from ER Triage Doc. by RN): pt presents per [facility]. pt states he started experiencing chest pain around 10 this date. pt states pt was located on left side of his chest, denies radiation. pt states he was recently discharged from the hospital. pt denies pain at this time, states pain was relieved after 2 nitro. History of Present Illness HPI narrative: Patient is a 74-year-old male presents today with chest pain. Has a known history of heart failure with reduced ejection fraction most recently with an EF of 10 to 15% in December or January of earlier this year. Was recently hospitalized primarily for hyperglycemia and for electrolyte abnormalities in the setting of CKD. Has been evaluated outpatient for possible AICD but no decision has yet been made for that. And is described as a dullness in the left side of the chest no radiation or diaphoresis associated with this. Did have some nitroglycerin which improved his symptoms. Known coronary disease. Related Data Home Medications ?Medication ?Instructions ?Recorded ?Confirmed acetaminophen 500 mg tablet 500 mg PO Q6HP PRN Mild Pain 03/08/25 05/15/25 (Scale Score 1-4) insulin lispro 100 unit/mL 40 unit SQ TID 05/15/25 05/15/25 subcutaneous pen (Humalog KwikPen (U-100) Insulin) rivaroxaban 15 mg tablet (Xarelto) 15 mg PO QPMWITHMEAL 05/15/25 05/15/25 Previous Rx's ?Medication ?Instructions ?Recorded atorvastatin 40 mg tablet 40 mg PO HS #90 tabs 03/14/25 clopidogrel 75 mg tablet 75 mg PO DAILY #90 tabs 03/14/25 omeprazole 40 mg capsule,delayed 40 mg PO DAILY #90 caps 03/14/25 release bumetanide 2 mg tablet 2 mg PO BID 30 days #60 tabs 04/05/25 ferrous sulfate 325 mg (65 mg 325 mg PO DAILY #90 tabs 04/05/25 iron) tablet isosorbide dinitrate 20 mg tablet 20 mg PO TID 30 days #90 tabs 04/05/25 dapagliflozin propanediol 10 mg 10 mg PO DAILY #30 tabs 04/06/25 tablet (Farxiga) metoprolol succinate 25 mg 25 mg PO DAILY #30 tabs 04/06/25 tablet,extended release 24 hr hydralazine 10 mg tablet 20 mg (2 x 10 mg) PO TID 30 days 04/22/25 #180 tabs levothyroxine 100 mcg tablet 100 mcg PO DAILY #90 tabs 04/22/25 amiodarone 200 mg tablet 200 mg PO DAILY 30 days #30 tabs 05/12/25 blood-glucose sensor (Dexcom G6 #9 ea 05/14/25 Sensor device) blood-glucose transmitter (Dexcom #1 ea 05/14/25 G6 Transmitter device) blood-glucose,lpn or medical assistant,cont #1 ea 05/14/25 (Dexcom G6 Ice Cream Van Vendor) insulin glargine 100 unit/mL 35 unit (0.35 mL) SQ HS 30 days #0 05/16/25 subcutaneous solution (Lantus mL U-100 Insulin) Allergies Allergy/AdvReac Type Severity Reaction Status Date / Time amoxicillin Allergy Rash Verified 05/13/25 14:58 Penicillins Allergy Rash Verified 05/13/25 14:58 PFSH PFS Disclaimer: The information contained in this section may have been updated after the patient was seen, as this information can be updated by other users. Medical History (Updated 05/19/25 @ 14:47 by Walker Damon MD) HFrEF (heart failure with reduced ejection fraction) Chest pain Calf cramp Elevated troponin New onset of congestive heart failure CHF (congestive heart failure) Sinus tachycardia Dyspnea B12 deficiency Painful urination Screening for prostate cancer Screening for HIV (human immunodeficiency virus) Encounter for HCV screening test for low risk patient Colon cancer screening Right flank pain Proteinuria Foreign body in left ear Hearing loss LOM (left otitis media) Dermatitis Tympanosclerosis, right ear Left serous otitis media Acute left otitis media Dizziness Otitis media Left elbow fracture Decreased mobility Right hip pain Acute cystitis without hematuria Dysuria Injury of left elbow Injury due to fall Left elbow pain Laceration of lip Inguinal hernia bilateral, non-recurrent Abnormal cardiovascular stress test PAF (paroxysmal atrial fibrillation) CKD stage 4 due to type 2 diabetes mellitus (~05/14/25) Typical angina Coronary artery disease Stroke Fall Head injury COVID-19 Surgical History (Updated 05/17/25 @ 00:00 by Ruperto Membreno) History of tonsillectomy History of appendectomy Hx of cholecystectomy History of colonoscopy Presence of stent in coronary artery Hx of CABG Family History Other No significant family history Social History (Updated 05/15/25 @ 00:24 by Jazmin Brunson RN) Smoking Status: Former smoker tobacco type: cigarettes packs per day: 1 smoking status stop date: 10 years ago alcohol intake: never substance use type: denies use current occupational status: retired Travel in the last 8 weeks?: Inside the [place] household members: children housing: house marital status: legally current occupation: [employer] current occupational exposures/hazards: No caffeine: Yes Have you lived/traveled outside US in past 30 days?: No Contact w/someone who lives/traveled outside US past 30 days?: No Exposure to someone with infectious disease in past 14 days?: No Do you have a fever (greater than 100.4 F or 38 C)?: No Have you tested positive for COVID-19?: No Exposed to someone with COVID-19 in past 14 days?: No Do you have a sore throat?: No Do you have a cough?: No Do you have any weakness?: No Do you have any diarrhea?: No Are you experiencing any unusual bleeding?: No Do you have any muscle aches/pain?: No Do you have any abdominal pain?: No Are you experiencing loss of taste or smell?: No Other Medical History Have you received the Flu Vaccine for this season: No Have you received the Pneumonia Vaccine: No ROS Obtained: Yes All systems reviewed & no additional complaints except as documented Physical Exam General General appearance: alert and in no apparent distress Respiratory Respiratory exam: Present normal lung sounds bilaterally Cardiovascular Cardiovascular exam: Present regular rate; Absent normal rhythm Abdominal Exam Abdominal exam: Present soft; Absent distention Neurological Exam Neurological exam: Present alert and oriented X3 HEART Score HEART Score HEART Score assessment performed?: Yes History (anamnesis): Slightly suspicious ECG: Significant ST-deviation Age: >65 years Risk factors: Atherosclerosis history Troponin: 1-3x normal limit HEART Score: 7 Critical Care Critical Care Time Critical Care Time: No Medical Decision Making Roderick Inquiry Pt receiving controlled substance: No Vital Signs Vital Signs: 05/19/25 12:15 05/19/25 12:30 05/19/25 13:00 Temperature 97.7 F Temperature Source Oral Pulse Rate 66 66 Pulse Rate [Right Radial] 68 Respiratory Rate 18 9 L 13 Blood Pressure 137/66 142/70 H Blood Pressure [Right Arm] 143/73 H Blood Pressure Mean [Right Arm] 96 Blood Pressure Source [Right Arm] Automatic Cuff Blood Pressure Position [Right Arm] Sitting 02 Sat by Pulse Oximetry 98 99 100 Oxygen Delivery Method Nasal Cannula Oxygen Flow Rate (LPM) 2 05/19/25 13:30 05/19/25 14:00 Temperature Temperature Source Pulse Rate 64 64 Pulse Rate [Right Radial] Respiratory Rate 14 15 Blood Pressure 151/77 H 127/64 Blood Pressure [Right Arm] Blood Pressure Mean [Right Arm] Blood Pressure Source [Right Arm] Blood Pressure Position [Right Arm] 02 Sat by Pulse Oximetry 100 100 Oxygen Delivery Method Oxygen Flow Rate (LPM) Lab Data Lab results reviewed: Yes I reviewed the patient's lab results. Labs: Lab Results 05/19/25 12:26: WBC 14.5 H, RBC 4.32 L, Hgb 13.0 L, Hct 38.1 L, MCV 88.2, MCH 30.1, MCHC 34.1, RDW 15.2, Plt Count 286 D, MPV 9.8, Neut % (Auto) 78.4, Lymph % (Auto) 11.0, [place] % (Auto) 9.0, Eos % (Auto) 0.5, Baso % (Auto) 0.4, Neut # (Auto) 11.4 H, Lymph # (Auto) 1.6, [place] # (Auto) 1.3 H, Eos # (Auto) 0.1, Baso # (Auto) 0.1, Sodium 133 L, Potassium 3.6, Chloride 95 L, Carbon Dioxide 29, Anion Gap 12.6, BUN 62 H, Creatinine 3.70 H, Estimated Creat Clear 20, Estimated GFR 16 L*, Est GFR ( Amer) 20 L, Glucose 48 L*, Calcium 8.9, Total Bilirubin 0.6, AST 43, ALT 43, Alkaline Phosphatase 125, Troponin I 0.05 H, Total Protein 7.8, Albumin 4.3, Globulin 3.5 H, Albumin/Globulin Ratio 1.2 05/19/25 12:26 05/19/25 12:26 Response Orders (Tests/Meds): ORDERS Category Date Time Status XR chest portable Stat Exams 05/19/25 12:20 Completed Complete Blood Count Auto Diff Stat Lab 05/19/25 12:26 Completed Comprehensive Metabolic Panel Stat Lab 05/19/25 12:26 Completed Troponin I Q3H Lab 05/19/25 15:30 Ordered Troponin I Q3H Lab 05/19/25 18:30 Ordered Troponin I Stat Lab 05/19/25 12:26 Completed ECG Data Tracing #1: Attestation: I reviewed this ECG and interpreted as documented below: ECG Narrative: Ventricular rate of 70 sinus rhythm with frequent PVCs no acute ST changes no significant conduction abnormalities aside from the frequent ventricular ectopy normal axis otherwise MDM Narrative Medical Decision Narrative: 74-year-old with extensive past medical history including heart failure with reduced ejection fraction and CKD presenting today with chest pain has been ongoing since this morning. Troponin is 0.05 which is at his baseline without any significant delta from recent hospitalization this is not consistent with acute myocardial infarction or injury. He does have chronic troponin leak likely secondary to multiple causes such as heart failure and renal insufficiency. Patient does however have frequent ventricular ectopic beats on his EKG and has known ejection fraction of 10 to 15%. I discussed the case with Dr. Martins given the fact that he is having this arrhythmia he is very high risk for this to decompensate into V. tach. Will discuss the case further with him and make a hospitalization decision based on the possibility of doing a AICD placement. After discussing the case with Dr. Martins he would like to admit the patient for further intervention. Family is agreeable to this plan.
--- NOTE | 2025-05-19 14:37 | PC.NURSE ---
Contacted for bed assignment on this patient.
--- NOTE | 2025-05-19 15:01 | PC.NURSE ---
report called to rosa cortez
--- NOTE | 2025-05-19 15:38 | EXP.CARD.CON ---
History of Present Illness History of Present Illness Consult date: 05/19/25 Requesting physician: Joel Corona Consult reason: chest pain Chief complaint: weakness, chest pain Additional Medical History:: 1. CAD is present and likely stable. -Medical management 12/2024 -Medical mgt (09/2022) -Hx of LUKE -Hx of CABG (2016) -On plavix 2. HTN- -limited Echo, 01/2025, EF 10-15%, no LV thrombus with definity contrast 3. HLD-on statin. -LDL 54.59 (02/2025). On statin therapy 4. HFrEF is present. EF 10-15% (02/02/2025). -On Bumex, Isordil and hydralazine. -no DEVI, ARB, Arni or spironolactone due to renal function. -Patient is not wearing the life vest, he is aware of the possibility of sudden cardiac -Discussed defibrillator 5. CKD, stage 4 -Cr 3.0, GFR 21, 05/2025 -Renal angiogram patent bilateral renal arteries (sep 2022) 6. PAFib is NSR today -On amiodarone -on Xarelto for a/c. -Hx of CVA History of present illness: 74 yo WM admitted through the ED for onset of chest pain/tightness with associated weakness that started this AM while cutting his hair. He was able to sit down and finish haircut but due to symptoms, he decided to come for evaluation. Patient has chronic HFrEF with recent worsening of his cardiomyopathy to 10 to 15%. He is also known to have frequent ventricular ectopy which is again displayed on telemetry today. Recently hospitalized earlier this week due to uncontrolled diabetes. States his blood sugars have been better since he was at home. Troponin is at baseline (chronic mildly elevated) with EKG showing sinus rhythm with ventricular pacing and frequent PVCs. Admitted for observation and consideration of AICD implantation tomorrow. I discussed the recommendation for AICD, the procedure, risk and benefits and patient wishes to proceed. We will hold his Xarelto this evening and plan to implant a dual-chamber AICD tomorrow. [facility] Disclaimer: The information contained in this section may have been updated after the patient was seen, as this information can be updated by other users. Medical History (Updated 05/19/25 @ 15:59 by QUITA Quezada) HFrEF (heart failure with reduced ejection fraction) Chest pain Calf cramp Elevated troponin New onset of congestive heart failure CHF (congestive heart failure) Sinus tachycardia Dyspnea B12 deficiency Painful urination Screening for prostate cancer Screening for HIV (human immunodeficiency virus) Encounter for HCV screening test for low risk patient Colon cancer screening Right flank pain Proteinuria Foreign body in left ear Hearing loss LOM (left otitis media) Dermatitis Tympanosclerosis, right ear Left serous otitis media Acute left otitis media Dizziness Otitis media Left elbow fracture Decreased mobility Right hip pain Acute cystitis without hematuria Dysuria Injury of left elbow Injury due to fall Left elbow pain Laceration of lip Inguinal hernia bilateral, non-recurrent Abnormal cardiovascular stress test PAF (paroxysmal atrial fibrillation) CKD stage 4 due to type 2 diabetes mellitus (~05/14/25) Typical angina Coronary artery disease Stroke Fall Head injury COVID-19 Surgical History History of tonsillectomy History of appendectomy Hx of cholecystectomy History of colonoscopy Presence of stent in coronary artery Hx of CABG Family History Other No significant family history Social History (Updated 05/19/25 @ 15:15 by Melissa Vu RN) Smoking Status: Former smoker tobacco type: cigarettes packs per day: 1 smoking status stop date: 10 years ago alcohol intake: never substance use type: denies use current occupational status: retired Travel in the last 8 weeks?: Inside the [place] household members: children housing: house marital status: legally current occupation: [employer] current occupational exposures/hazards: No caffeine: Yes Have you lived/traveled outside US in past 30 days?: No Contact w/someone who lives/traveled outside US past 30 days?: No Exposure to someone with infectious disease in past 14 days?: No Do you have a fever (greater than 100.4 F or 38 C)?: No Have you tested positive for COVID-19?: No Exposed to someone with COVID-19 in past 14 days?: No Do you have a sore throat?: No Do you have a cough?: No Do you have any weakness?: No Are you experiencing any nausea/vomitting?: No Do you have any diarrhea?: No Are you experiencing any unusual bleeding?: No Do you have any muscle aches/pain?: No Do you have any abdominal pain?: No Are you experiencing loss of taste or smell?: No Review of Systems Review of Systems Review of systems:: pertinent systems reviewed and negative unless documented below Constitutional Constitutional: Reports weakness *Cardiovascular Cardiovascular: Reports chest pain and Reports dyspnea on exertion *Respiratory Respiratory: Denies cough, Reports dyspnea on exertion and Denies wheezing *Neurologic Neurologic: Reports weakness Allergic/Immunologic Allergic/Immunologic: Denies wheezing Exam Data for Last 24 hours Vital signs and Labs for Last 24 Hours: Temp Pulse Resp BP Pulse Ox O2 Del Method O2 Flow Rate 98.3 F 73 20 150/81 H 99 Nasal Cannula 2 05/19/25 15:15 05/19/25 15:15 05/19/25 15:15 05/19/25 15:15 05/19/25 15:01 05/19/25 15:15 05/19/25 12:15 Laboratory Results - last 24 hr 05/19/25 12:26: WBC 14.5 H, RBC 4.32 L, Hgb 13.0 L, Hct 38.1 L, MCV 88.2, MCH 30.1, MCHC 34.1, RDW 15.2, Plt Count 286 D, MPV 9.8, Neut % (Auto) 78.4, Lymph % (Auto) 11.0, [place] % (Auto) 9.0, Eos % (Auto) 0.5, Baso % (Auto) 0.4, Neut # (Auto) 11.4 H, Lymph # (Auto) 1.6, [place] # (Auto) 1.3 H, Eos # (Auto) 0.1, Baso # (Auto) 0.1, Sodium 133 L, Potassium 3.6, Chloride 95 L, Carbon Dioxide 29, Anion Gap 12.6, BUN 62 H, Creatinine 3.70 H, Estimated Creat Clear 20, Estimated GFR 16 L*, Est GFR ( Amer) 20 L, Glucose 48 L*, Calcium 8.9, Total Bilirubin 0.6, AST 43, ALT 43, Alkaline Phosphatase 125, Troponin I 0.05 H, Total Protein 7.8, Albumin 4.3, Globulin 3.5 H, Albumin/Globulin Ratio 1.2 I & O for Last 24 hours: Intake & Output 05/17/25 05/18/25 05/19/25 05/20/25 11:59 11:59 11:59 11:59 Weight 178 lb Constitutional Constitutional: no acute distress *Routine Respiratory Exam Respiratory: Present decreased breath sounds and CTA bilaterally; Absent rales or rhonchi *Routine Cardiovascular Exam Cardiovascular: Present RRR; Absent murmur, gallop or rubs *Routine Extremities Exam Extremities: Present edema *Routine Neurological Exam Neurological: Present alert, oriented X3 and CN II-XII intact Meds Home Medications and Allergies Home Medications ?Medication ?Instructions ?Recorded ?Confirmed ?Type acetaminophen 500 mg tablet 500 mg PO Q6HP PRN Mild Pain 03/08/25 05/19/25 History (Scale Score 1-4) atorvastatin 40 mg tablet 40 mg PO HS #90 tabs 03/14/25 05/19/25 Rx clopidogrel 75 mg tablet 75 mg PO DAILY #90 tabs 03/14/25 05/19/25 Rx omeprazole 40 mg capsule,delayed 40 mg PO DAILY #90 caps 03/14/25 05/19/25 Rx release bumetanide 2 mg tablet 2 mg PO BID 30 days #60 tabs 04/05/25 05/19/25 Rx ferrous sulfate 325 mg (65 mg 325 mg PO DAILY #90 tabs 04/05/25 05/19/25 Rx iron) tablet isosorbide dinitrate 20 mg tablet 20 mg PO TID 30 days #90 tabs 04/05/25 05/19/25 Rx dapagliflozin propanediol 10 mg 10 mg PO DAILY #30 tabs 04/06/25 05/19/25 Rx tablet (Farxiga) metoprolol succinate 25 mg 25 mg PO DAILY #30 tabs 04/06/25 05/19/25 Rx tablet,extended release 24 hr hydralazine 10 mg tablet 20 mg (2 x 10 mg) PO TID 30 days 04/22/25 05/19/25 Rx #180 tabs levothyroxine 100 mcg tablet 100 mcg PO DAILY #90 tabs 04/22/25 05/19/25 Rx amiodarone 200 mg tablet 200 mg PO DAILY 30 days #30 tabs 05/12/25 05/19/25 Rx blood-glucose sensor (Dexcom G6 #9 ea 05/14/25 05/19/25 Rx Sensor device) blood-glucose transmitter (Dexcom #1 ea 05/14/25 05/19/25 Rx G6 Transmitter device) blood-glucose,records management technician,cont #1 ea 05/14/25 05/19/25 Rx (Dexcom G6 Acrylic Fabricator) insulin lispro 100 unit/mL 40 unit SQ TID 05/15/25 05/19/25 History subcutaneous pen (Humalog KwikPen (U-100) Insulin) rivaroxaban 15 mg tablet (Xarelto) 15 mg PO QPMWITHMEAL 05/15/25 05/19/25 History insulin glargine 100 unit/mL 35 unit (0.35 mL) SQ HS 30 days #0 05/16/25 05/19/25 Rx subcutaneous solution (Lantus mL U-100 Insulin) New Prescriptions to Start Prescriptions: Allergies Allergy/AdvReac Type Severity Reaction Status Date / Time amoxicillin Allergy Rash Verified 05/13/25 14:58 Penicillins Allergy Rash Verified 05/13/25 14:58 Assessment and Plan *Assessment and plan (1) Chest pain: Status: Acute Qualifiers: Chest pain type: chest pain due to myocardial ischemia Ischemic chest pain type: stable angina pectoris Qualified Code(s): I20.89 - Other forms of angina pectoris Category: Medical Code(s): R07.9 - Chest pain, unspecified (2) Ventricular ectopy: Status: Acute Category: Medical Code(s): I49.3 - Ventricular premature depolarization (3) Ischemic cardiomyopathy: Status: Acute Category: Medical Code(s): I25.5 - Ischemic cardiomyopathy (4) HFrEF (heart failure with reduced ejection fraction): Status: Chronic Category: Medical Code(s): I50.20 - Unspecified systolic (congestive) heart failure (5) PAF (paroxysmal atrial fibrillation): Status: Acute Category: Medical Code(s): I48.0 - Paroxysmal atrial fibrillation Plan 1. Chest pain/stable angina with known coronary artery disease -Chronic mildly elevated troponin -Continue atorvastatin, clopidogrel, metoprolol and isosorbide dinitrate 2. Ventricular ectopy with severe ischemic cardiomyopathy, EF 10-15% -Narrow QRS complex -Increased risk for sudden cardiac -Plan for dual-chamber ICD implantation tomorrow 3. HFrEF -Clinically stable on GDMT of metoprolol, Bumex, hydralazine, Isordil. No DEVI/ARB/Arni due to CKD -Chest x-ray this admission unremarkable 4. Paroxysmal atrial fibrillation -Maintaining sinus rhythm on amiodarone therapy -Will hold Xarelto therapy for implantation of ICD tomorrow 5. CKD, stage IV with chronic anemia -Baseline creatinine 2.5-2.7 -Current creatinine 3.7 with GFR 16 -Hemoglobin stable at 13 Monitor on telemetry overnight, consider IV amiodarone if patient develops sustained V. tach Continue current medications with the exception of holding his Xarelto Plan for dual-chamber AICD tomorrow
--- NOTE | 2025-05-19 15:44 | HMH.PHAINT1 ---
Pharmacy Intervention Comments: MEDICATION RECONCILIATION COMPLETED ON PATIENT USING EXTERNAL FILL HISTORY FROM PHARMACY AND DISCHARGE SUMMARY FROM PREVIOUS ADMISSION. -ANDREA SHAFER, LAMARD
[2025-05-19 15:46] LABS: POC Glucose,Bedside 243 (70-110)
--- NOTE | 2025-05-19 15:47 | P.HP_ITS ---
<Statement entered by Joel Corona MD - 05/24/25 11:45> Personally evaluated patient and agree with the plan of care as outlined by the [employer] TEAM MEMBER. History of Present Illness *Admission Date: 05/19/25 *Reason for visit:: Chest pain, ventricular ectopy, HFrEF *History of present illness: Mr. Carrasco is a 74-year-old male who presented to the emergency department today with chest pain. He was recently discharged from the hospital on 05/16/2025. He has a known heart failure with reduced ejection fraction, EF 10 to 15%. Recent hospitalization was due to hyperglycemia (700s) and electrolyte abnormalities in the setting of his chronic kidney disease. He has a known medical history of insulin-dependent diabetes, hypothyroidism, HFrEF, hypertension, atrial fibrillation, CAD, CABG, and GERD. Workup was done in the emergency department was significant for troponin of 0.05 (patient baseline), ventricular ectopic beats on his EKG, creatinine 3.7, WBC 14.5. The ED physician discussed the case with Dr. Martins and recommendation was made for the patient to be admitted to the hospital due to high risk of arrhythmia decompensating into ventricular tachycardia. Hospital medicine was consulted for admission and management of patient care. [facility] Disclaimer: The information contained in this section may have been updated after the patient was seen, as this information can be updated by other users. Medical History (Updated 05/19/25 @ 15:59 by QUITA Quezada) HFrEF (heart failure with reduced ejection fraction) Chest pain Calf cramp Elevated troponin New onset of congestive heart failure CHF (congestive heart failure) Sinus tachycardia Dyspnea B12 deficiency Painful urination Screening for prostate cancer Screening for HIV (human immunodeficiency virus) Encounter for HCV screening test for low risk patient Colon cancer screening Right flank pain Proteinuria Foreign body in left ear Hearing loss LOM (left otitis media) Dermatitis Tympanosclerosis, right ear Left serous otitis media Acute left otitis media Dizziness Otitis media Left elbow fracture Decreased mobility Right hip pain Acute cystitis without hematuria Dysuria Injury of left elbow Injury due to fall Left elbow pain Laceration of lip Inguinal hernia bilateral, non-recurrent Abnormal cardiovascular stress test PAF (paroxysmal atrial fibrillation) CKD stage 4 due to type 2 diabetes mellitus (~05/14/25) Typical angina Coronary artery disease Stroke Fall Head injury COVID-19 Surgical History History of tonsillectomy History of appendectomy Hx of cholecystectomy History of colonoscopy Presence of stent in coronary artery Hx of CABG Family History Other No significant family history Social History (Updated 05/19/25 @ 15:15 by Melissa Vu RN) Smoking Status: Former smoker tobacco type: cigarettes packs per day: 1 smoking status stop date: 10 years ago alcohol intake: never substance use type: denies use current occupational status: retired Travel in the last 8 weeks?: [place] the [place] household members: children housing: house marital status: legally current occupation: [employer] current occupational exposures/hazards: No caffeine: Yes Have you lived/traveled outside US in past 30 days?: No Contact w/someone who lives/traveled outside US past 30 days?: No Exposure to someone with infectious disease in past 14 days?: No Do you have a fever (greater than 100.4 F or 38 C)?: No Have you tested positive for COVID-19?: No Exposed to someone with COVID-19 in past 14 days?: No Do you have a sore throat?: No Do you have a cough?: No Do you have any weakness?: No Are you experiencing any nausea/vomitting?: No Do you have any diarrhea?: No Are you experiencing any unusual bleeding?: No Do you have any muscle aches/pain?: No Do you have any abdominal pain?: No Are you experiencing loss of taste or smell?: No Other Medical History Have you received the Flu Vaccine for this season: Yes Have you received the Pneumonia Vaccine: Yes Review of Systems Constitutional Constitutional: Denies fever(s) *Cardiovascular Cardiovascular: Reports chest pain, Reports chest pain at rest, Denies dyspnea and Reports palpitations *Respiratory Respiratory: Denies cough, Denies dyspnea and Denies wheezing *Gastrointestinal Gastrointestinal: Denies abdominal pain, Denies change in bowel habits and Denies nausea Endocrine Endocrine: Reports palpitations Allergic/Immunologic Allergic/Immunologic: Denies wheezing Meds Home Medications and Allergies Home Medications ?Medication ?Instructions ?Recorded ?Confirmed ?Type acetaminophen 500 mg tablet 500 mg PO Q6HP PRN Mild Pa in 06/03/25 08/14/25 H istory (Scale Score 1-4) atorvastatin 40 mg tablet 40 mg PO HS #90 tabs 5 05/19/25 Rx clopidogrel 75 mg tablet 75 mg PO DAILY #90 tabs 06/3005/19/25 Rx omeprazole 40 mg capsule,delayed 40 mg PO DAILY #90 ca ps 03/14/25 05/19/25 Rx release bumetanide 2 mg tablet 2 mg PO BID 30 days #60 tabs 04/05/25 05/19/25 Rx ferrous sulfate 325 mg (65 mg 325 mg PO DAILY #90 tabs 04/05/25 05/19/25 Rx iron) tablet isosorbide dinitrate 20 mg tablet 20 mg PO TID 30 days #90 tabs 04/05/25 05/19/25 Rx dapagliflozin propanediol 10 mg 10 mg PO DAILY #30 tab s 04/06/25 05/19/25 Rx tablet (Farxiga) metoprolol succinate 25 mg 25 mg PO DAILY #30 tabs 11/3005/19/25 Rx tablet,extended release 24 hr hydralazine 10 mg tablet 20 mg (2 x 10 mg) PO TID 30 days 04/22/25 05/19/25 Rx #180 tabs levothyroxine 100 mcg tablet 100 mcg PO DAILY #90 tabs 04/22/25 05/19/25 Rx amiodarone 200 mg tablet 200 mg PO DAILY 30 days #30 tabs 05/12/25 05/19/25 Rx blood-glucose sensor (Dexcom G6 #9 ea 05/14/25 5 Rx Sensor device) blood-glucose transmitter (Dexcom #1 ea 05/14/2505/19 Rx G6 Transmitter device) blood-glucose,program developer,cont #1 ea 05/14/25 05/19/25 Rx (Dexcom G6 Forge Utility Worker) insulin lispro 100 unit/mL 40 unit SQ TID 05/15/25 History subcutaneous pen (Humalog KwikPen (U-100) Insulin) rivaroxaban 15 mg tablet (Xarelto) 15 mg PO QPMWITHMEA L 05/15/25 05/19/25 History insulin glargine 100 unit/mL 35 unit (0.35 mL) SQ HS 3 0 days #0 05/16/25 05/19/25 Rx subcutaneous solution (Lantus mL U-100 Insulin) New Prescriptions to Start Prescriptions: Allergies Allergy/AdvReac Type Severity Reaction Status Date / Time amoxicillin Allergy Rash Verified 05/13/25 14:58 Penicillins Allergy Rash Verified 05/13/25 14:58 Exam Data for Last 24 hours Vital signs and Labs for Last 24 Hours: Temp Pulse Resp BP Pulse Ox O2 Del Method O2 Flow Rate 98.3 F 73 20 150/81 H 99 Nasal Cannula 2 05/19/25 15:15 05/19/25 15:15 05/19/25 15:15 05/19/25 15:15 05/19/25 15:01 05/19/25 15:15 05/19/25 12:15 Laboratory Results - last 24 hr 05/19/25 12:26: WBC 14.5 H, RBC 4.32 L, Hgb 13.0 L, Hct 38.1 L, MCV 88.2, MCH 30.1, MCHC 34.1, RDW 15.2, Plt Count 286 D, MPV 9.8, Neut % (Auto) 78.4, Lymph % (Auto) 11.0, [place] % (Auto) 9.0, Eos % (Auto) 0.5, Baso % (Auto) 0.4, Neut # (Auto) 11.4 H, Lymph # (Auto) 1.6, [place] # (Auto) 1.3 H, Eos # (Auto) 0.1, Baso # (Auto) 0.1, Sodium 133 L, Potassium 3.6, Chloride 95 L, Carbon Dioxide 29, Anion Gap 12.6, BUN 62 H, Creatinine 3.70 H, Estimated Creat Clear 20, Estimated GFR 16 L*, Est GFR ( Amer) 20 L, Glucose 48 L*, Calcium 8.9, Total Bilirubin 0.6, AST 43, ALT 43, Alkaline Phosphatase 125, Troponin I 0.05 H, Total Protein 7.8, Albumin 4.3, Globulin 3.5 H, Albumin/Globulin Ratio 1.2 05/19/25 15:39: POC Glucose 243 H I & O for Last 24 hours: Intake & Output 05/16/25 05/17/25 05/18/25 05/19/25 23:59 23:59 23:59 23:59 Weight 80.739 kg Constitutional Constitutional: no acute distress, chronically ill appearing and cooperative *Routine HEENT Exam Head: Present normocephalic Eye: Present EOMI ENT: Absent dentition normal Comments: Poor dentition *Routine Neck Exam Neck: Present supple *Routine Respiratory Exam Respiratory: Present CTA bilaterally, able to speak in complete sentences and symmetric chest movement; Absent stridor or wheezes *Routine Cardiovascular Exam Cardiovascular: Present irregular rhythm; Absent murmur *Routine Abdominal Exam Abdominal: Present soft and normoactive bowel sounds; Absent tenderness or distended *Routine Rectal Exam Rectal:: deferred *Routine Genitalia Exam Genitalia:: deferred *Routine Extremities Exam Extremities: Present pulses intact; Absent cyanosis or edema *Routine Skin Exam Skin: Present intact and dry; Absent erythema *Routine Neurological Exam Neurological: Present alert, oriented X3 and normal speech Assessment and Plan *Assessment and plan (1) Chest pain: Status: Acute Qualifiers: Chest pain type: chest pain due to myocardial ischemia Ischemic chest pain type: stable angina pectoris Qualified Code(s): I20.89 - Other forms of angina pectoris Category: Medical Code(s): R07.9 - Chest pain, unspecified (2) Ventricular ectopy: Status: Acute Category: Medical Code(s): I49.3 - Ventricular premature depolarization (3) Ischemic cardiomyopathy: Status: Acute Category: Medical Code(s): I25.5 - Ischemic cardiomyopathy (4) HFrEF (heart failure with reduced ejection fraction): Status: Chronic Category: Medical Code(s): I50.20 - Unspecified systolic (congestive) heart failure (5) PAF (paroxysmal atrial fibrillation): Status: Acute Category: Medical Code(s): I48.0 - Paroxysmal atrial fibrillation (6) Uncontrolled type 2 diabetes mellitus: Status: Acute Qualifiers: Glycemic state: with hyperglycemia Qualified Code(s): E11.65 - Type 2 diabetes mellitus with hyperglycemia Category: Medical (7) CKD stage 4 due to type 2 diabetes mellitus: Status: Chronic Category: Medical Code(s): E11.22 - Type 2 diabetes mellitus with diabetic chronic kidney disease; N18.4 - Chronic kidney disease, stage 4 (severe) (8) Coronary artery disease: Status: Chronic Qualifiers: Associated angina: with other forms of angina Coronary Disease- Associated Artery/Lesion type: bypass graft [place] vs. transplanted heart: [place] heart Qualified Code(s): I25.708 - Atherosclerosis of coronary artery bypass graft(s), unspecified, with other forms of angina pectoris Category: Medical Code(s): I25.10 - Atherosclerotic heart disease of [place] coronary artery without angina pectoris (9) Hypothyroidism (acquired): Status: Chronic Category: Medical Code(s): E03.9 - Hypothyroidism, unspecified Plan Mr. Carrasco is a 74-year-old male who presented to the emergency department today with chest pain. He was recently discharged from the hospital on 05/16/2025. He has a known heart failure with reduced ejection fraction, EF 10 to 15%. Recent hospitalization was due to hyperglycemia (700s) and electrolyte abnormalities in the setting of his chronic kidney disease. He has a known medical history of insulin-dependent diabetes, hypothyroidism, HFrEF, hypertension, atrial fibrillation, CAD, CABG, and GERD. Workup was done in the emergency department was significant for troponin of 0.05 (patient baseline), ventricular ectopic beats on his EKG, creatinine 3.7, WBC 14.5. The ED physician discussed the case with Dr. Martins and recommendation was made for the patient to be admitted to the hospital due to high risk of arrhythmia decompensating into ventricular tachycardia. Hospital medicine was consulted for admission and management of patient care. I agreed to admit the patient, plan of care as follows: #Chest pain #Ventricular ectopy ?Patient complains of intermittent chest tightness/pain, improved after 2 sublingual nitro prior to coming to the ED. Troponin was found to be 0.05, chronically elevated due to heart failure. ? Continue Plavix 75 mg daily, atorvastatin 40 mg at bedtime, metoprolol 25 mg daily, and isosorbide 20 mg 3 times daily. ? EKG showed ventricular ectopy, narrow QRS complex. After consultation with cardiology plans for dual-chamber ICD implantation tomorrow. ? Patient placed on continuous cardiac telemetry. #HFrEF ? Patient appears euvolemic. No edema, lungs CTA. Denies shortness of breath, cough. ? Continue Bumex 2 mg twice daily and hydralazine 20 mg 3 times daily. #Paroxysmal A-fib ? Patient on amiodarone 200 mg daily, maintaining NSR rate of 73 currently. ? Patient on OAC, Xarelto 15 mg daily, holding in anticipation of defibrillator. #CKD, stage IV: Patient creatinine on admission 3.7. Baseline between 2.5-3. Patient making urine appropriately at this time. #Diabetes, insulin-dependent ? ACHS glucose checks, SSI ? Continue Lantus 35 units at bedtime #Hypothyroidism: Continue levothyroxine 100 mcg daily. TSH 05/13/2025 -19.10 #GERD: Continue omeprazole 40 mg daily Diabetic diet, n.p.o. at midnight VTE?SCDs Ambulate as tolerated Continuous cardiac telemetry
[2025-05-19] MEDS: BUMETANIDE 1 MG TABLET 2 MG PO (16:15)
[2025-05-19] MEDS: humaLOG 100 UNITS/ML 10ML VIAL (SSI) SUBCUT ×2 (16:15→20:34)
[2025-05-19 16:29] LABS: Troponin I 0.05 ng/ml (0.00-0.034)
--- NOTE | 2025-05-19 17:22 | PC.NURSE ---
AOX4, NOT REQUIRING O2 SUPPORT, URINAL FOR ELIMINATION. NO COMPLAINTS SINCE ARRIVAL TO FLOOR.
[2025-05-19 19:08] LABS: Troponin I 0.04 ng/ml (0.00-0.034)
--- NOTE | 2025-05-19 20:27 | PC.NURSE ---
SCD's placed on patient at this time
[2025-05-19] MEDS: PANTOPRAZOLE 40MG TABLET 40 MG PO (20:35)
[2025-05-19] MEDS: INSULIN GLARGINE 100 UNITS/ML 3ML FLEXPEN 35 UNIT SUBCUT (20:35)
[2025-05-19] MEDS: ATORVASTATIN 40MG TABLET 40 MG PO (20:35)
[2025-05-19 20:45] LABS: POC Glucose,Bedside 424 (70-110)
[2025-05-19] MEDS: HYDRALAZINE 10MG TABLET 20 MG PO (20:51)
[2025-05-19] MEDS: ISOSORBIDE DINITRATE 20 MG TABLET PO (20:51)
[2025-05-20] VITALS (15 sets, daily range): BP systolic 95–133; BP diastolic 49–72; PULSE 66–88; RESP 16–22; TEMP 36.1–37.1; O2SAT 93–99; BMI 26.6
[2025-05-20 05:52] LABS: POC Glucose,Bedside 127 (70-110)
[2025-05-20 06:20] LABS: Hematocrit 35.8 % (42.0-52.0); Hemoglobin 12.0 g/dL (14.1-18.0); Immature Granulocytes % 0.5 %; Mean Corpuscular HGB Conc 33.5 g/dL (31.8-35.4); Mean Corpuscular Hemoglobin 29.5 pg (27.0-31.2); Mean Corpuscular Volume 88.0 fl (80-94); Nucleated Red Blood Cells % 0 %; Platelet Count 208 K/mm3 (142-424); Red Blood Count 4.07 M/mm3 (4.60-6.20); Red Cell Distribution Width-SD 49.0 fL; White Blood Count 8.1 K/mm3 (4.8-10.8)
[2025-05-20 06:26] LABS: Albumin Level 4.1 g/dl (3.5-5.0); Chloride 95 mmol/L (98-107)
[2025-05-20 06:27] LABS: Potassium 4.5 mmoL/L (3.5-5.1); Sodium 133 mmol/L (136-145)
[2025-05-20 06:29] LABS: Alanine Aminotransferase 36 U/L (12-78); Aspartate Amino Transferase 36 U/L (17-59); Blood Urea Nitrogen 63 mg/dl (9-20); Creatinine Clearance Estimated 21 mL/min (50-200); Creatinine,Serum 3.70 mg/dl (0.66-1.25); Estimated Glomerular Filt Rate 16 ml/min (>60); GFR (African American) 20 ML/MIN (>60)
[2025-05-20 06:30] LABS: Albumin/Globulin Ratio 1.3 (1.1-1.8); Alkaline Phosphatase 108 U/L (38-126); Anion Gap 10.5 mEq/L (5-15); Bilirubin,Total 0.5 mg/dl (0.2-1.3); Calcium 9.1 mg/dl (8.4-10.2); Carbon Dioxide 32 mmol/L (22.0-30.0); Globulin 3.2 g/dL (1.3-3.2); Glucose 125 mg/dl (74-100); Magnesium 2.5 mg/dl (1.6-2.3); Total Protein,Serum 7.3 g/dl (6.3-8.2)
[2025-05-20] MEDS: LEVOTHYROXINE 100MCG (0.1MG) TAB 100 MCG PO (06:35)
--- NOTE | 2025-05-20 06:38 | PC.NURSE ---
consent signed for cardiology procedure
--- NOTE | 2025-05-20 08:06 | IR_ITS ---
APPROVED REPORT Patient Location: Inpatient Rn Iv Therapy: nicolás PROCEDURES 1. Pocket formation for Permanent Pacemaker Placement. 2. Placement of an atrial sensing and pacing coil into the right atrial appendage. 3. Placement of a ventricular sensing and pacing coil in the right ventricular apex. 4. Permanent Pacemaker Placement. INDICATION Systolic Congestive Heart Failure, ejection < 35%, [place] [facility] Assoication Class 3 Congestive Heart Failure Informed consent was obtained prior to the procedure. COMPLICATIONS none Estimated Blood Loss: less than 10ml TECHNIQUE 1% Lidocaine with epinephrine used to anesthetized the left anterior aspect of the chest. Scalpel was used to make the initial cutaneous incision while electrocautery was used to dissect down tinto the fascia. The fascia was lifted off the pectoralis muscle and digitally manipulated creating a pocket for the defibrillator. The patient was then placed in Trendelenburg position and the subclavian vein was accessed 2 times via the Selinger technique. A 8 Somali sheath was placed under fluoroscopic guidance into the subclavian vein. The dilator was removed from the sheath. Using fluoroscopic guidance, the ventricular lead was placed into the right ventricular apex, screwed and secured into place. Electronic interrogation proved acceptable thresholds and voltage within the lead. Using 3-0 silk, the ventricular lead was then secured into place and sheath peeled away. A 6 Somali fresh sheath and dilator was placed over the existing wire. Using fluoroscopic guidance, the atrial lead was then placed into the right atrial appendage and screwed and secured in place. Electrical interrogation demonstrated acceptable thresholds and voltage number. The atrial lead was then secured into place using 3-0 silk and sheath peeled away. 1 gram of Ancef was used to flush the pocket. All 3 leads were connected to generator and tested via computer. The defibrillator then secured to the fascia. Monocryl was used to close the subcutaneous layers while elder were used to close the cutaneous layer. A pressure dressing was placed and the patient was transferred to the postop holding area in stable condition for postoperative care. INTERROGATION Generator Model number: [id number] Generator Serial number: [id number] Atrial lead model number: [id number] Atrial lead serial number: [id number] P-wave: 3.0mV Impedance: 450ohms Threshold: 1.5V@0.5ms Right Ventricular lead model number: [id number] Right Ventricular lead serial number: [id number] R-wave: >12mV Impedance: 640ohms Threshold: 1.0V@0.5ms Pacing Parameters: Mode: DDDR Base/Max Track:60 ppm / 130 ppm No diaphragmatic stimulation at 10 volts. IMPRESSION 1. Successful pocket formation for Permanent Pacemaker Placement. 2. Successful placement of an atrial sensing and pacing coil into the right atrial appendage. 3. Successful placement of a ventricular sensing and pacing coil in the right ventricular apex. 4. Successful permanent Pacemaker Placement. PLAN 1. Post op wound care Electronically signed by : Merritt Martins MD 05/23/2025 15:49:11
--- NOTE | 2025-05-20 08:24 | P.PN_ITS ---
Subjective *Date: 05/20/25 *Time: 11:46 Interval history: Patient states he feels well this morning, sitting up in bed. States he got some rest last night. Denies any chest pain, shortness of breath. Does endorse chest fullness/tightness . He states this is baseline for him. Patient appears euvolemic, no edema, lungs CTA. Plans for defibrillator placement later this afternoon. Medical Exam Vital signs and Labs for Last 24 Hours: Vital Signs Temp Pulse Pulse Resp BP BP Pulse Ox 05/20/25 06:37 05/20/25 05:00 05/20/25 04:00 80 05/20/25 04:00 98.7 F 71 20 98/49 L 96 05/20/25 03:00 05/20/25 01:00 05/20/25 00:00 70 05/20/25 00:00 98.1 F 81 16 102/54 L 98 05/19/25 22:58 05/19/25 21:00 05/19/25 20:00 70 05/19/25 20:00 05/19/25 20:00 97.8 F 72 16 114/68 97 05/19/25 18:23 05/19/25 16:55 05/19/25 15:15 97.9 F 74 13 150/81 H 98 05/19/25 15:15 98.3 F 73 20 150/81 H 05/19/25 15:01 79 18 165/80 H 99 05/19/25 15:00 05/19/25 14:58 05/19/25 14:30 74 20 152/78 H 100 05/19/25 14:00 64 15 127/64 100 05/19/25 13:30 64 14 151/77 H 100 05/19/25 13:00 66 13 142/70 H 100 05/19/25 12:30 66 9 L 137/66 99 05/19/25 12:15 97.7 F 68 18 143/73 H 98 O2 Del Method O2 Flow Rate 05/20/25 06:37 Room Air 05/20/25 05:00 Room Air 05/20/25 04:00 05/20/25 04:00 Room Air 05/20/25 03:00 Room Air 05/20/25 01:00 Room Air 05/20/25 00:00 05/20/25 00:00 Room Air 05/19/25 22:58 Room Air 05/19/25 21:00 Room Air 05/19/25 20:00 05/19/25 20:00 Room Air 05/19/25 20:00 Room Air 05/19/25 18:23 Room Air 05/19/25 16:55 Room Air 05/19/25 15:15 Room Air 05/19/25 15:15 Nasal Cannula 05/19/25 15:01 05/19/25 15:00 Room Air 05/19/25 14:58 Room Air 05/19/25 14:30 05/19/25 14:00 05/19/25 13:30 05/19/25 13:00 05/19/25 12:30 05/19/25 12:15 Nasal Cannula 2 Intake and Output 05/19/25 05/20/25 05/20/25 23:59 07:59 15:59 Intake Total 1090 / 1090 Output Total 1100 / 1100 575 / 575 Balance -10 / -10 -575 / -575 Intake: Intake, Oral Amount 1080 / 1080 Intake, Other Amount 10 10 Output: Output, Urine Amount 1100 / 1100 575 / 575 Other: Intake, Other Source Saline Solution Number of Unmeasured Voids 0 1 Weight 81.737 kg Patient Weight 05/20/25 23:59 Weight 81.737 kg Laboratory Results - last 24 hr 05/19/25 12:26: WBC 14.5 H, RBC 4.32 L, Hgb 13.0 L, Hct 38.1 L, MCV 88.2, MCH 30.1, MCHC 34.1, RDW 15.2, Plt Count 286 D, MPV 9.8, Neut % (Auto) 78.4, Lymph % (Auto) 11.0, [place] % (Auto) 9.0, Eos % (Auto) 0.5, Baso % (Auto) 0.4, Neut # (Auto) 11.4 H, Lymph # (Auto) 1.6, [place] # (Auto) 1.3 H, Eos # (Auto) 0.1, Baso # (Auto) 0.1, Sodium 133 L, Potassium 3.6, Chloride 95 L, Carbon Dioxide 29, Anion Gap 12.6, BUN 62 H, Creatinine 3.70 H, Estimated Creat Clear 20, Estimated GFR 16 L*, Est GFR ( Amer) 20 L, Glucose 48 L*, Calcium 8.9, Total Bilirubin 0.6, AST 43, ALT 43, Alkaline Phosphatase 125, Troponin I 0.05 H, Total Protein 7.8, Albumin 4.3, Globulin 3.5 H, Albumin/Globulin Ratio 1.2 05/19/25 15:39: POC Glucose 243 H 05/19/25 15:40: Troponin I 0.05 H 05/19/25 18:32: Troponin I 0.04 H 05/19/25 20:32: POC Glucose 424 H* 05/20/25 05:43: POC Glucose 127 H 05/20/25 05:44: WBC 8.1 D, RBC 4.07 L, Hgb 12.0 L, Hct 35.8 L, MCV 88.0, MCH 29.5, MCHC 33.5, RDW 15.4, Plt Count 208 D, MPV 9.9, Neut % (Auto) 62.9, Lymph % (Auto) 24.0, [place] % (Auto) 10.5 H, Eos % (Auto) 1.7, Baso % (Auto) 0.4, Neut # (Auto) 5.1, Lymph # (Auto) 2.0, [place] # (Auto) 0.9, Eos # (Auto) 0.1, Baso # (Auto) 0.0, Sodium 133 L, Potassium 4.5 D, Chloride 95 L, Carbon Dioxide 32 H, Anion Gap 10.5, BUN 63 H, Creatinine 3.70 H, Estimated Creat Clear 21, Estimated GFR 16 L*, Est GFR ( Amer) 20 L, Glucose 125 H D, Calcium 9.1, Magnesium 2.5 H, Total Bilirubin 0.5, AST 36, ALT 36, Alkaline Phosphatase 108, Total Protein 7.3, Albumin 4.1, Globulin 3.2, Albumin/Globulin Ratio 1.3 I & O for Labs for Last 24 Hours: Intake & Output 05/17/25 05/18/25 05/19/25 05/20/25 23:59 23:59 23:59 23:59 Intake Total 1090 / 1090 Output Total 1100 / 1100 575 / 575 Balance -10 / -10 -575 / -575 Weight 80.739 kg 81.737 kg Constitutional: Present no acute distress, average body habitus, chronically ill appearing and cooperative Head: Present atraumatic and normocephalic ENT: Present normal exam Neck: Present normal inspection Respiratory: Present normal respiratory effort; Absent rhonchi, wheezes or crackles Cardiac: Present Reg Rate and Rhythm GI: Present soft, distention and normal bowel sounds; Absent tenderness Rectal (male): Present deferred (male): Present deferred Extremities: Present normal inspection and full ROM; Absent edema Skin: Present intact; Absent erythema, pallor or mottling Neuro: Present Grossly Intact, alert, awake, oriented x 3 and moves all extremities Assessment and Plan *Assessment and plan (1) Chest pain: Status: Acute Qualifiers: Chest pain type: chest pain due to myocardial ischemia Ischemic chest pain type: stable angina pectoris Qualified Code(s): I20.89 - Other forms of angina pectoris Category: Medical Code(s): R07.9 - Chest pain, unspecified (2) Ventricular ectopy: Status: Acute Category: Medical Code(s): I49.3 - Ventricular premature depolarization (3) Ischemic cardiomyopathy: Status: Acute Category: Medical Code(s): I25.5 - Ischemic cardiomyopathy (4) HFrEF (heart failure with reduced ejection fraction): Status: Chronic Category: Medical Code(s): I50.20 - Unspecified systolic (congestive) heart failure (5) PAF (paroxysmal atrial fibrillation): Status: Acute Category: Medical Code(s): I48.0 - Paroxysmal atrial fibrillation (6) Uncontrolled type 2 diabetes mellitus: Status: Acute Qualifiers: Glycemic state: with hyperglycemia Qualified Code(s): E11.65 - Type 2 diabetes mellitus with hyperglycemia Category: Medical (7) CKD stage 4 due to type 2 diabetes mellitus: Status: Chronic Category: Medical Code(s): E11.22 - Type 2 diabetes mellitus with diabetic chronic kidney disease; N18.4 - Chronic kidney disease, stage 4 (severe) (8) Coronary artery disease: Status: Chronic Qualifiers: Associated angina: with other forms of angina Coronary Disease-Assoc iated Artery/Lesion type: bypass graft [place] vs. transplanted heart: [place] heart Qualified Code(s): I25.708 - Atherosclerosis of coronary artery bypass graft(s), unspecified, with other forms of angina pectoris Category: Medical Code(s): I25.10 - Atherosclerotic heart disease of [place] coronary artery without angina pectoris (9) Hypothyroidism (acquired): Status: Chronic Category: Medical Code(s): E03.9 - Hypothyroidism, unspecified Plan Mr. Carrasco is a 74-year-old male who presented to the emergency department with chest pain. He was recently discharged from the hospital on 05/16/2025. He has a known heart failure with reduced ejection fraction, EF 10 to 15%. Recent hospitalization was due to hyperglycemia (700s) and electrolyte abnormalities in the setting of his chronic kidney disease. He has a known medical history of insulin-dependent diabetes, hypothyroidism, HFrEF, hypertension, atrial fibrillation, CAD, CABG, and GERD. Workup was done in the emergency department was significant for troponin of 0.05 (patient baseline), ventricular ectopic beats on his EKG, creatinine 3.7, WBC 14.5. The ED physician discussed the case with Dr. Martins and recommendation was made for the patient to be admitted to the hospital due to high risk of arrhythmia decompensating into ventricular tachycardia. Hospital medicine was consulted for admission and management of patient care. I agreed to admit the patient, plan of care as follows: #Chest pain #Ventricular ectopy ? Patient denies chest pain, does state that he there is some intermittent chest tightness, he does also state that this is baseline for him. Troponin at patient baseline 0.05 trending to 0.04. ? Continue Plavix 75 mg daily, atorvastatin 40 mg at bedtime, metoprolol 25 mg daily, and isosorbide 20 mg 3 times daily. ? EKG showed ventricular ectopy, narrow QRS complex. After consultation with cardiology plans for dual-chamber ICD implantation today. ? Patient placed on continuous cardiac telemetry. #HFrEF ? Patient appears euvolemic. No edema, lungs CTA. Denies shortness of breath, cough. ? Continue Bumex 2 mg twice daily and hydralazine 20 mg 3 times daily. #Paroxysmal A-fib ? Patient on amiodarone 200 mg daily, maintaining NSR. ? Patient on OAC, Xarelto 15 mg daily, holding in anticipation of defibrillator. #CKD, stage IV: Patient creatinine on admission 3.7. Baseline between 2.5-3. Repeat creatinine today 3.3. Continue to monitor. #Diabetes, insulin-dependent ? ACHS glucose checks, SSI ? Continue Lantus 35 units at bedtime #Hypothyroidism: Continue levothyroxine 100 mcg daily. TSH 05/13/2025 -19.10, repeat TSH this admission 7.94. #GERD: Continue omeprazole 40 mg daily N.p.o. for defibrillator placement. VTE?SCDs Ambulate as tolerated Continuous cardiac telemetry
[2025-05-20] MEDS: AMIODARONE 200MG TABLET 200 MG PO (08:42)
[2025-05-20] MEDS: BUMETANIDE 1 MG TABLET 2 MG PO ×2 (08:42→15:37)
[2025-05-20] MEDS: CLOPIDOGREL 75MG TAB 75 MG PO (08:42)
[2025-05-20] MEDS: DAPAGLIFLOZIN PROPANEDIOL 10 MG TABLET PO (08:42)
[2025-05-20] MEDS: ISOSORBIDE DINITRATE 20 MG TABLET PO ×3 (08:42→20:32)
[2025-05-20] MEDS: METOPROLOL SUCCINATE XL 25MG TABLET 25 MG PO (08:42)
[2025-05-20] MEDS: HYDRALAZINE 10MG TABLET 20 MG PO ×3 (08:44→20:32)
[2025-05-20 09:17] LABS: Anion Gap 10.7 mEq/L (5-15); Blood Urea Nitrogen 59 mg/dl (9-20); Calcium 8.9 mg/dl (8.4-10.2); Carbon Dioxide 28 mmol/L (22.0-30.0); Chloride 96 mmol/L (98-107); Creatine Kinase 106 U/L (55-170); Creatinine Clearance Estimated 23 mL/min (50-200); Creatinine,Serum 3.30 mg/dl (0.66-1.25); Estimated Glomerular Filt Rate 18 ml/min (>60); GFR (African American) 22 ML/MIN (>60); Glucose 138 mg/dl (74-100); Potassium 3.7 mmoL/L (3.5-5.1); Sodium 131 mmol/L (136-145)
[2025-05-20 09:35] LABS: Free T4 (Free Thyroxine) 1.27 ng/dl (0.78-2.19)
--- NOTE | 2025-05-20 09:36 | PC.NURSE ---
specimen preparation assistant aware and patient aware we need a urine sample.
[2025-05-20 09:48] LABS: Thyroid Stimulating Hormone 7.94 uIU/mL (0.465-4.68)
[2025-05-20 10:00] LABS: POC Glucose,Bedside 177 (70-110)
--- NOTE | 2025-05-20 11:27 | P.PNANES_ITS ---
[facility] Disclaimer: The information contained in this section may have been updated after the patient was seen, as this information can be updated by other users. Medical History (Updated 05/20/25 @ 00:00 by Background Daemon) Acute on chronic HFrEF (heart failure with reduced ejection fraction) HFrEF (heart failure with reduced ejection fraction) Chest pain Calf cramp Elevated troponin New onset of congestive heart failure CHF (congestive heart failure) Sinus tachycardia Dyspnea B12 deficiency Painful urination Screening for prostate cancer Screening for HIV (human immunodeficiency virus) Encounter for HCV screening test for low risk patient Colon cancer screening Right flank pain Proteinuria Foreign body in left ear Hearing loss LOM (left otitis media) Dermatitis Tympanosclerosis, right ear Left serous otitis media Acute left otitis media Dizziness Otitis media Left elbow fracture Decreased mobility Right hip pain Acute cystitis without hematuria Dysuria Injury of left elbow Injury due to fall Left elbow pain Laceration of lip Inguinal hernia bilateral, non-recurrent Abnormal cardiovascular stress test PAF (paroxysmal atrial fibrillation) CKD stage 4 due to type 2 diabetes mellitus (~05/14/25) Typical angina Coronary artery disease Stroke Fall Head injury COVID-19 Surgical History (Updated 05/20/25 @ 00:00 by Background Daemon) History of tonsillectomy History of appendectomy Hx of cholecystectomy History of colonoscopy Presence of stent in coronary artery Hx of CABG Family History Other No significant family history Social History (Updated 05/19/25 @ 15:15 by Melissa Vu RN) Smoking Status: Former smoker tobacco type: cigarettes packs per day: 1 smoking status stop date: 10 years ago alcohol intake: never substance use type: denies use current occupational status: retired Travel in the last 8 weeks?: [place] the [place] household members: children housing: house marital status: legally current occupation: [employer] current occupational exposures/hazards: No caffeine: Yes [facility] Anesthesia Checklist Patient Identification Patient Identification: Arm Band Structural Data Admitted From: Inpatient Planned Operative Procedure/s: Dual Chamber AICD Consent for Planned Operative Procedure(s) Verified: Yes Verified Documents: Surgical Consent and History and Physical NPO Status Verified Time NPO: 00:00 Additional verifications Anesthesia Reactions: No Airway Assessment Mallampati Score:: Class II C-Spine Mobility Assessed: Yes TMJ Mobility Assessed: Yes Dentition: Good Dentition Neurological Assessment Level of Consciousness: Awake, Alert and Appropriate Anesthesia Plan Anesthesia Risk discussed: Yes Anesthesia Plan: Verified ASA Class: IV Anesthesia Type: MAC
[2025-05-20 11:29] LABS: Sodium,Urine Random 34.0 mmol/L (30-90)
--- OUTSIDE RECORDS SUMMARY | 2025-05-20 11:51 | XMS_ITS | Encounter Summary ---
Author Organization [employer] ([place], [place], [place], [place]) Address [address] [place] [address] Care Team Providers Care Maintenance Trainer Name Role Phone Marielos Amaral DUST MIXER Primary Care Provider [phone] Encounter Details Date Type Department Care Team (Late st Contact Info) Description 10/15/2019 Transcribed Document [facility] [place] Medicine [address] [place] [address] ProviderHaroldo MD [address] [place] [address] Social History Tobacco Use Types Packs/Day Years Used Date Smoking Tobacco: Never Assessed Sex and Gender Information Value Date Recorded Sex Assigned at Not on file Legal Sex Male 3:45 PM CDT Gender Identity Not on file Sexual Orientation Not on file documented as of this encounter Miscellaneous Notes * Cerner Conversion Note - Haroldo ProviderMD - 10/15/2019 12:18 PM BARTENDER HELPER Patient: ZACKARY ANTOINE Age: 68 years Sex: [...] 5 mg oral tablet: 1 Tab, Oral, [id number], 60 Tab, 0 Refill(s) Toprol-XL 25 mg [...] tablet 5 mg = 1 Tab, Oral, [id number] Eliquis 5 mg oral tablet 5 mg [...] History of obstructive sleep apnea / IMO [id number] / Confirmed, Active Problems (13) Angina Coronary [...] (OCT 14) Radiology Results (Last 48 hours) [id number] -- 10/14/2019 17:19 CR Chest 1 Vw [...] on filedocumented in this encounter Care Teams Maintenance Trainer Relationship Specialty Start Date End Date Marielos Amaral, DUST MIXER [address] [address] PCP - General Nurse Practitioner 08/18/23 documented as of this encounter
--- OUTSIDE RECORDS SUMMARY | 2025-05-20 11:51 | XMS_ITS | Encounter Summary ---
Author Organization [employer] ([place], [place], [place], [place]) Address [address] [place] [address] Care Team Providers Care Agricultural Chemicals Inspector Name Role Phone Munir Marielos RESTREPO Primary Care Provider Encounter Details Date Type Department Care Team (Late st Contact Info) Description 04/23/2022 Transcribed Document [facility] [place] [address] [place] [address] ProviderHaroldo MD [address], [place] [...] speak a language other than [facility]? Yes 10/30/2024 Do [...] Health Plan: [employer] MEDICARE REPL Policy Number: [id number] Authorization Number: Insurance Primary Name : [employer] MEDICARE REPL Policy Number: [id number] Authorized Service Begin Date-Primary : 04/22/2022 EDT Historical Authorization Comments-Primary : No Authorization Comments Found KRISTINA GÓMEZ, LUIS - 04/23/2022 18:43 EDT Electronically signed by Brittany [facility] Conversion Uptwister Tender Cerner at 01/24/2023 10:30 AM CDT documented in this encounter Plan of Treatment Not on file documented as of this encounter Visit Diagnoses Not on filedocumented in this encounter Care Teams Agricultural Chemicals Inspector Relationship Specialty Start Date End Date Marielos Amaral COMMERCIAL OCEAN CLAMMER [address] [address] PCP - General Nurse Practitioner 08/18/23 documented as of this encounter
--- OUTSIDE RECORDS SUMMARY | 2025-05-20 11:51 | XMS_ITS | Encounter Summary ---
Author Organization [employer] ([place], [place], [place], [place]) Address [address] [place] [address] Care Team Providers Care Community Service Specialist Name Role Phone Marielos Amaral KAYE Primary Care Provider Encounter Details Date Type Department Care Team (Late st Contact Info) Description 10/15/2019 Transcribed Document [facility] [place] [address] [place] [address] ProviderHaroldo MD [address] [place] [address] Social History Tobacco Use Types Packs/Day Years Used Date Smoking Tobacco: Never Assessed Sex and Gender Information Value Date Recorded Sex Assigned at Not on file Legal Sex Male 3:45 PM CDT Gender Identity Not on file Sexual Orientation Not on file documented as of this encounter Miscellaneous Notes * Cerner Conversion Note - Haroldo ProviderMD - 10/15/2019 2:00 AM INVAS TECH Supervisor Lump Room Details Entered On: 10/15/2019 2:47 EST Performed On: 10/15/2019 2:00 EST by Kristofer Barr Rn Order Details Order Detail : N/A IV Order Detail : 1 Oxygen Order Detail : 0 Nurse Collect Order Detail : 1 Central Line Order Detail : No Arterial Line : No Kristofer Barr Rn - 10/15/2019 2:47 EST Electronically signed by Brittany [facility] Conversion Soda Fountain Manager Cerner at 01/24/2023 10:21 AM CDT documented in this encounter Plan of Treatment Not on file documented as of this encounter Visit Diagnoses Not on filedocumented in this encounter Care Teams Community Service Specialist Relationship Specialty Start Date End Date Marielos Amaral, WOODS BOSS [address] [place] [address] PCP - General Nurse Practitioner 08/18/23 documented as of this encounter
--- OUTSIDE RECORDS SUMMARY | 2025-05-20 11:51 | XMS_ITS | Encounter Summary ---
Author Organization [employer] ([place], [place], [place], [place]) Address [address] [place] [address] Care Team Providers Care Eligibility Clerk Name Role Phone Marielos Amaral KAYE Primary Care Provider Encounter Details Date Type Department Care Team (Late st Contact Info) Description 10/15/2019 Transcribed Document [facility] [place] [address] [place] [address] ProviderHaroldo MD [address] [place] [address] Social History Tobacco Use Types Packs/Day Years Used Date Smoking Tobacco: Never Assessed Sex and Gender Information Value Date Recorded Sex Assigned at Not on file Legal Sex Male 3:45 PM CDT Gender Identity Not on file Sexual Orientation Not on file documented as of this encounter Miscellaneous Notes * Cerner Conversion Note - Haroldo ProviderMD - 10/15/2019 3:30 PM FLASK MAKER On Going Discharge Planning Entered On: 10/15/2019 15:31 EST Performed On: 10/15/2019 15:30 EST by HARITHA BARRIOS Rn-Title InvestigatorDried Yeast Supervisor Progress Note Discharge Arrangements : Patient Post-Acute [...] Meeting Medical Necessity : Yes HARITHA BARRIOS Rn-Title Investigator - 10/15/2019 15:30 EST Narrative Progress Note Narrative Progress Note : Ongoing d/c planning, anticipate d/c home with spouse Enriqueta [phone]; [phone]. HARITHA BARRIOS Rn-Title Investigator - 10/15/2019 15:30 EST Electronically signed by Brittany [facility] Conversion Valve Liner Rubber Cerner at 01/24/2023 10:29 AM CDT documented in this encounter Plan of Treatment Not on file documented as of this encounter Visit Diagnoses Not on filedocumented in this encounter Care Teams Eligibility Clerk Relationship Specialty Start Date End Date Marielos Amaral, KAYE [address] [address] PCP - General Nurse Practitioner 08/18/23 documented as of this encounter
--- OUTSIDE RECORDS SUMMARY | 2025-05-20 11:51 | XMS_ITS | Encounter Summary ---
Author Organization [employer] ([place], [place], [place], [place]) Address [address] [place] [address] Care Team Providers Care Pricing Clerk Name Role Phone Marielos Amaral KAYE Primary Care Provider Encounter Details Date Type Department Care Team (Late st Contact Info) Description 10/15/2019 Transcribed Document [facility] [place] [address] [place] [address] ProviderHaroldo MD [address] [place] [address] Social History Tobacco Use Types Packs/Day Years Used Date Smoking Tobacco: Never Assessed Sex and Gender Information Value Date Recorded Sex Assigned at Not on file Legal Sex Male 3:45 PM CDT Gender Identity Not on file Sexual Orientation Not on file documented as of this encounter Miscellaneous Notes * Cerner Conversion Note - Haroldo ProviderMD - 10/15/2019 12:13 PM MOTOR MECHANIC Treatment Intervention, PT Entered On: 10/17/2019 11:02 [...] ZACKARY HENDERSON, PT - 10/17/2019 10:56 EST Correction Goals Ambulation LTG Grid Goal #1 Device [...] ZACKARY HENDERSON PT - 10/17/2019 10:[address] [place] PT Charges PT Therap. Exercise 15 min : 1 ZACKARY HENDERSON PT - 10/17/2019 10:56 EST documented in this encounter Plan of Treatment Not on file documented as of this encounter Visit Diagnoses Not on filedocumented in this encounter Care Teams Pricing Clerk Relationship Specialty Start Date End Date Marielos Amaral APRN [address] [phone] PCP - General Nurse Practitioner 08/18/23 documented as of this encounter
--- OUTSIDE RECORDS SUMMARY | 2025-05-20 11:52 | XMS_ITS | Encounter Summary ---
Author Organization [employer] ([place], [place], [place], [place]) Address [address] [place] [address] Care Team Providers Care 4Th Grade Math Teacher Name Role Phone Munir Marielos RESTREPO Primary Care Provider [phone] Encounter Details Date Type Department Care Team (Late st Contact Info) Description 04/23/2022 Transcribed Document [facility] [place] [address] [place] [address] ProviderHaroldo MD [address] [place] [address] Social History Tobacco Use Types [...] speak a language other than Samoan at [facility]? Yes 10/30/2024 [...] Other (See Comment) Eliquis: 2.5 mg, Oral, [id number] Rocephin: 1 Gram, 100 mL/Hr, IV Piggyback, [id number] Tylenol: 650 mg, Oral, Q4H, PRN: Pain [...] mg tab 2.5 mg 1 Tab, Oral, [id number] atorvastatin 40 mg tab 40 mg 1 Tab, Oral, At Bedtime cefTRIAXone 1 Gram, IV Piggyback, [id number] insulin glargine 1 unit/0.01 mL inj 5 [...] list: Medical Atrial fibrillation / SNOMED CT 56170248 / Confirmed CAD - Coronary artery disease / SNOMED CT 9011539290 / Confirmed Cardiomyopathy / SNOMED CT 728479262 / Confirmed Acute cerebrovascular accident (CVA) / SNOMED CT 692631362 / Confirmed History of obstructive sleep apnea / IMO 33898240 / Confirmed HLD - Hyperlipidemia / SNOMED CT 786572513 / Confirmed HTN - Hypertension / SNOMED CT 4681550356 / Confirmed Type 2 diabetes mellitus / SNOMED CT 807611849 / Confirmed, Active Problems (20) Acute cerebrovascular [...] EDT Height Source Stated Height Entry Format [place] Height/Length, ANGUILLAN (ft) 5 ft Height/Length ANGUILLAN 9 Inch CLINICALHEIGHT 175.26 cm Vega Body Weight 70 kg Weight Source Bed scale Weight Entry Format [place] Weight Samoan lb 187 lb CLINICALWEIGHT 85 kg Body Surface Area (BSA) 2.01 m2 Body Mass Index 27.7 kg/m2 HI 04/22/2022 9:15 EDT Height Source Stated Height Entry Format [place] Height/Length, ANGUILLAN (ft) 5 ft Height/Length ANGUILLAN 9 Inch CLINICALHEIGHT 175.26 cm Vega Body Weight 69.73 kg Weight Source, ED Critical estimated dosing weight Weight Entry Format [place] Weight Samoan lb 187 lb CLINICALWEIGHT 85 kg Body [...] Gastrointestinal: Soft, Non-tender, Non-distended. Integumentary: Warm, Dry, Day. Neurologic: Alert, Oriented, No focal deficits. Psychiatric: [...] renal diet. - No emergent need of INSTRUCTOR APPAREL MANUFACTURE. Will follow. Electronically signed by Brittany, [facility] Conversion Motor Scooter Repairer Cerner at 01/24/2023 10:46 AM CDT documented in this encounter Plan of Treatment Not on file documented as of this encounter Visit Diagnoses Not on filedocumented in this encounter Care Teams 4Th Grade Math Teacher Relationship Specialty Start Date End Date Marielos Amaral APRN [address] [address] PCP - General Nurse Practitioner 08/18/23 documented as of this encounter
--- OUTSIDE RECORDS SUMMARY | 2025-05-20 11:52 | XMS_ITS | Encounter Summary ---
Author Organization [employer] ([place], [place], [place], [place]) Address [address] [place] [address] Care Team Providers Care Road Design Draftsperson Name Role Phone MunirMarlyMarielos KAYE Primary Care Provider Encounter Details Date Type Department Care Team (Late st Contact Info) Description 10/14/2019 Transcribed Document [facility] [place] [address] [place] [address] ProviderHaroldo MD [address] [place] [address] Social History Tobacco Use Types Packs/Day Years Used Date Smoking Tobacco: Never Assessed Sex and Gender Information Value Date Recorded Sex Assigned at Not on file Legal Sex Male 3:45 PM CDT Gender Identity Not on file Sexual Orientation Not on file documented as of this encounter Miscellaneous Notes * Cerner Conversion Note - Historical ProviderMD - 10/14/2019 8:26 PM SEAM RUBBER Consult Phone Call Documentation Entered On: 10/15/2019 8:29 EST Performed On: 10/14/2019 20:26 EST by ДМИТРИЙ JACK Phone Call for Consults Consult Phone Call/Page Attempt : First call Physician Requested for Consult : HERI LESLIE APRN Provider Service Notified Name : Cardiology ДМИТРИЙ JACK - 10/15/2019 8:28 EST Electronically signed by Brittany [facility] Conversion Sack Sewer Machine Cerner at 01/24/2023 10:46 AM CDT documented in this encounter Plan of Treatment Not on file documented as of this encounter Visit Diagnoses Not on filedocumented in this encounter Care Teams Road Design Draftsperson Relationship Specialty Start Date End Date Marielos Amaral, DIRECTOR PRINT [address] [place] [address] PCP - General Nurse Practitioner 08/18/23 documented as of this encounter
--- OUTSIDE RECORDS SUMMARY | 2025-05-20 11:52 | XMS_ITS | Encounter Summary ---
Author Organization [employer] ([place], [place], [place], [place]) Address [address] [place] [address] Care Team Providers Care Private Duty Aide Name Role Phone Marielos Amaral KAYE Primary Care Provider Encounter Details Date Type Department Care Team (Late st Contact Info) Description 10/15/2019 Transcribed Document [facility] [place] [address] [place] [address] ProviderHaroldo MD [address] [place] [address] Social History Tobacco Use Types Packs/Day Years Used Date Smoking Tobacco: Never Assessed Sex and Gender Information Value Date Recorded Sex Assigned at Not on file Legal Sex Male 3:45 PM CDT Gender Identity Not on file Sexual Orientation Not on file documented as of this encounter Miscellaneous Notes * Cerner Conversion Note - Historical ProviderMD - 10/15/2019 5:58 AM WOOD FORM BUILDER Height and Weight, Routine Entered On: 10/15/2019 5:58 EST Performed On: 10/15/2019 5:58 EST by Emily Rich [facility] Height and Weight, Routine Routine Weight Source : Bed scale Routine Weight Entry Format : Metric Routine Weight, Kilograms : 87.5 kg(Converted to: 192 lb 14 oz) Routine Weight Calculation : 87.5 kg Height Source : Stated Height Entry Format : [place] Height, Feet : 5 ft Height, Inches [...] on filedocumented in this encounter Care Teams Private Duty Aide Relationship Specialty Start Date End Date Marielos Amaral, SPARE HAND [address] [phone] PCP - General Nurse Practitioner 08/18/23 documented as of this encounter
--- OUTSIDE RECORDS SUMMARY | 2025-05-20 11:52 | XMS_ITS | Encounter Summary ---
Author Organization [employer] ([place], [place], [place], [place]) Address [address] [place] [address] Care Team Providers Care Icer Air Conditioning Name Role Phone Munir Marielos RESTREPO Primary Care Provider Encounter Details Date Type Department Care Team (Late st Contact Info) Description 04/23/2022 Transcribed Document [facility] [place] [address] [place] [address] ProviderHaroldo MD [address] [place] [address] Social History Tobacco Use Types [...] speak a language other than Japanese at [facility]? Yes 10/30/2024 [...] - 04/23/2022 9:[address] ANODE WORKER Charges Entered On: 04/23/2022 9:26 EDT Performed On: 04/23/2022 9:21 EDT by STACIA BROWN, RAMONA Ricks ANODE WORKER Charges Screen For Speech Therapy : 1 STACIA BROWN SLP - 04/23/2022 9:21 EDT documented in this encounter Plan of Treatment Not on file documented as of this encounter Visit Diagnoses Not on filedocumented in this encounter Care Teams Icer Air Conditioning Relationship Specialty Start Date End Date Marielos Amaral, WELL REACTIVATOR OPERATOR [address] [phone] PCP - General Nurse Practitioner 08/18/23 documented as of this encounter
--- OUTSIDE RECORDS SUMMARY | 2025-05-20 11:52 | XMS_ITS | Encounter Summary ---
Author Organization [employer] ([place], [place], [place], [place]) Address [address] [place] [address] Care Team Providers Care Contract Implementation Analyst Name Role Phone Marielos Amaral KAYE Primary Care Provider Encounter Details Date Type Department Care Team (Late st Contact Info) Description 10/15/2019 Transcribed Document [facility] [place] [address] [place] [address] ProviderHaroldo MD [address] [place] [address] Social History Tobacco Use Types Packs/Day Years Used Date Smoking Tobacco: Never Assessed Sex and Gender Information Value Date Recorded Sex Assigned at Not on file Legal Sex Male 3:45 PM CDT Gender Identity Not on file Sexual Orientation Not on file documented as of this encounter Miscellaneous Notes * Cerner Conversion Note - Haroldo ProviderMD - 10/15/2019 5:00 AM DIRECTOR OF PLAYER PERSONNEL Chart Check - Review Order Profile Entered On: 10/15/2019 5:49 EST Performed On: 10/15/2019 5:00 EST by Kristofer Barr Rn Chart Check Powerplans Initiated/Discontinued as Appropriate : Yes All Active Orders Reviewed : Yes Kristofer Barr Rn - 10/15/2019 5:49 EST Electronically signed by Brittany [facility] Conversion [place] Mixer Operator Cerner at 01/24/2023 10:21 AM CDT documented in this encounter Plan of Treatment Not on file documented as of this encounter Visit Diagnoses Not on filedocumented in this encounter Care Teams Contract Implementation Analyst Relationship Specialty Start Date End Date Marielos Amaral, MANAGER POLICY [address] [place] [address] PCP - General Nurse Practitioner 08/18/23 documented as of this encounter
--- OUTSIDE RECORDS SUMMARY | 2025-05-20 11:52 | XMS_ITS | Encounter Summary ---
Author Organization [employer] ([place], [place], [place], [place]) Address [address] [place] [address] Care Team Providers Care Tank Builder Helper Name Role Phone Munir Marielos RESTREPO Primary Care Provider Encounter Details Date Type Department Care Team (Late st Contact Info) Description 04/23/2022 Transcribed Document [facility] [place] [address] [place] [address] ProviderHaroldo MD [address] [place] [address] Social History Tobacco Use Types [...] Do you speak a language other than Puerto Rican at [facility]? Yes 10/30/2024 [...] Yes LAURAPAULO, GUNNAR/[place] - 04/24/2022 15:57 EDT Senior Care Goals, OT Grooming LTG Grid Goal #1 [...] PAULO LAURA OTR/[place] - 04/24/2022 15:57 EDT [place] OT Charges OT Ther Activities Ea 15 Min : 1 PAULO LAURA OTR/[place] - 04/24/2022 15:57 EDT Electronically signed by Brittany [facility] Conversion Electrical Checkout Mechanic Cerner at 01/24/2023 10:39 AM CDT documented in this encounter Plan of Treatment Not on file documented as of this encounter Visit Diagnoses Not on filedocumented in this encounter Care Teams Tank Builder Helper Relationship Specialty Start Date End Date Marielos Amaral, KAYE [address] [place] [address] PCP - General Nurse Practitioner 08/18/23 documented as of this encounter
--- OUTSIDE RECORDS SUMMARY | 2025-05-20 11:53 | XMS_ITS | Referral Summary ---
Author Organization [employer] ([place], [place], [place], [place]) Address [address] [place] [address] Care Team Providers Care Shadow Graph Weight Operator Name Role Phone AmaralMarielos roque KAYE [...] Immunizations Name Administration Dates Next Due INFLUENZA(FLUCELVAX)_0.5 mL(6MOS+)TRI(XKM830) Social History Tobacco Use Types Packs/Day Years [...] Do you speak a language other than Slovenian at [facility]? Yes 10/30/2024 Do you want [...] Nonreactive Nonreactive, Equivocal 09/15/2024 4:51 PM EST [facility] Hep B C IgM Nonreactive Nonreactive 09/15/2024 4:51 PM EST [facility] Hepatitis B surface antigen Nonreactive Nonreactive, Equivocal 09/15/2024 4:51 PM EST [facility] Hepatitis C Ab Nonreactive Nonreactive, Equivocal 09/15/2024 4:51 PM EST [facility] Blood Venipuncture / Unknown 09/15/2024 2:53 PM EST 09/15/2024 3:10 PM EST [facility] - 09/15/2024 4:51 PM EST Hepatitis [...] to biotin interference with lab tests. Wilson oGode MD LAB BLOOD ORDERABLES Final Re sult [facility] [address] [place] [address], [facility] [phone] from Last 3 Months or Most Recently Relevant to Health Maintenance [facility] Advance Directives For more information, please contact: [phone] * Full Code (Latest Code Status on [...] Enriqueta Danilo Spouse Healthcare Decision-Maker Care Teams Shadow Graph Weight Operator Relationship Specialty Start Date End Date Marielos Amaral, VISUAL TRAINING AIDE [address] [place] [id number] PCP - General Nurse Practitioner 08/18/23
--- OUTSIDE RECORDS SUMMARY | 2025-05-20 11:53 | XMS_ITS | Encounter Summary ---
Author Organization [employer] ([place], [place], [place], [place]) Address [address] [place] [address] Care Team Providers Care Professor Of Business Name Role Phone Marielos Amaral KAYE Primary Care Provider Encounter Details Date Type Department Care Team (Late st Contact Info) Description 10/14/2019 Transcribed Document [facility] [place] [address] [place] [address] ProviderHaroldo MD [address] [place] [address] Social History Tobacco Use Types Packs/Day Years Used Date Smoking Tobacco: Never Assessed Sex and Gender Information Value Date Recorded Sex Assigned at Not on file Legal Sex Male 3:45 PM CDT Gender Identity Not on file Sexual Orientation Not on file documented as of this encounter Miscellaneous Notes * Cerner Conversion Note - Haroldo ProviderMD - 10/14/2019 2:14 PM HUMAN RESOURCES TEAM MEMBER Pain Assessment Entered On: 10/14/2019 15:44 EST [...] on filedocumented in this encounter Care Teams Professor Of Business Relationship Specialty Start Date End Date Marielos Amaral, SUPERVISOR SOLDERING [address] [phone] PCP - General Nurse Practitioner 08/18/23 documented as of this encounter
--- OUTSIDE RECORDS SUMMARY | 2025-05-20 11:53 | XMS_ITS | Encounter Summary ---
Author Organization [employer] ([place], [place], [place], [place]) Address [address] [place] [address] Care Team Providers Care Telecommunication Tower Technician Name Role Phone Munir Marielos RESTREPO Primary Care Provider Encounter Details Date Type Department Care Team (Late st Contact Info) Description 04/23/2022 Transcribed Document [facility] [place] [address] [place] [address] ProviderHaroldo MD [address] [place] [address] Social History Tobacco Use Types [...] Do you speak a language other than Liberian at [facility]? Yes 10/30/2024 Do [...] Historical Provider, - 04/23/2022 9:21 AM CDT INJURY PREVENTION COORDINATOR Therapy Screen Entered On: 04/23/2022 9:26 EDT Performed On: 04/23/2022 9:21 EDT by STACIA BROWN SLP Therapy Screen Medical Chart Reviewed, INJURY PREVENTION COORDINATOR : Yes Therapy Screen Completed, INJURY PREVENTION COORDINATOR : Yes Recommendations for Evaluation INJURY PREVENTION COORDINATOR : None Therapy Screen Comment, INJURY PREVENTION COORDINATOR : Neuro is currently not consulted, CVA does not appear to be in differential per hospitalist PA note. No communication deficits noted during bedside yesterday. Will defer communication eval. STACIA BROWN, INJURY PREVENTION COORDINATOR - 04/23/2022 9:21 EDT Electronically signed by Brittany [facility] Conversion Surgical Coder Cerner at 01/24/2023 10:22 AM CDT documented in this encounter Plan of Treatment Not on file documented as of this encounter Visit Diagnoses Not on filedocumented in this encounter Care Teams Telecommunication Tower Technician Relationship Specialty Start Date End Date Marielos Amaral APRN [address] [phone] PCP - General Nurse Practitioner 08/18/23 documented as of this encounter
--- OUTSIDE RECORDS SUMMARY | 2025-05-20 11:53 | XMS_ITS | Encounter Summary ---
Author Organization [employer] ([place], [place], [place], [place]) Address [address] [place] [address] Care Team Providers Care Financial Internship Name Role Phone Marielos Amaral KAYE Primary Care Provider Encounter Details Date Type Department Care Team (Late st Contact Info) Description 10/14/2019 Transcribed Document [facility] [place] [address] [place] [address] ProviderHaroldo MD [address] [place] [address] Social History Tobacco Use Types Packs/Day Years Used Date Smoking Tobacco: Never Assessed Sex and Gender Information Value Date Recorded Sex Assigned at Not on file Legal Sex Male 3:45 PM CDT Gender Identity Not on file Sexual Orientation Not on file documented as of this encounter Miscellaneous Notes * Cerner Conversion Note - Haroldo ProviderMD - 10/14/2019 4:59 PM STEWARDESSES TEACHER Nutrition Assessment Entered On: 10/15/2019 8:33 EST Performed On: 10/15/2019 8:33 EST by Almaz Chaudhari Dietitian Nutrition Assessment Current Nutrition Regimen Comment : 10/15: Rec'd consult for stroke pt. CT of head showed no acute abnormalities. ADMISSIONS CLERK eval; pt passed and on diabetic diet. Intakes establishing. Meds/labs reviewed. No skin breakdown. LBM door captain. RD will rescreen in 2-3 days to monitor po intake and provide ONS prn. Almaz Chaudhari Dietitian - 10/15/2019 10:53 EST Nutrition Assessment Reason : Automatic referral Almaz Chaudhari Dietitian - 10/15/2019 8:32 EST Electronically signed by Brittany [facility] Conversion Core Winding Operator Cerner at 01/24/2023 10:36 AM CDT documented in this encounter Plan of Treatment Not on file documented as of this encounter Visit Diagnoses Not on filedocumented in this encounter Care Teams Financial Internship Relationship Specialty Start Date End Date Marielos Amaral, JET AIRCRAFT SERVICER [address] [place] [address] PCP - General Nurse Practitioner 08/18/23 documented as of this encounter
--- OUTSIDE RECORDS SUMMARY | 2025-05-20 11:53 | XMS_ITS | Encounter Summary ---
Author Organization [employer] ([place], [place], [place], [place]) Address [address] [place] [address] Care Team Providers Care [facility] Name Role Phone Marielos Amaral KAYE Primary Care Provider Encounter Details Date Type Department Care Team (Late st Contact Info) Description 10/14/2019 Transcribed Document [facility] [place] [address] [place] [address] ProviderHaroldo MD [address] [place] [address] Social History Tobacco Use Types Packs/Day Years Used Date Smoking Tobacco: Never Assessed Sex and Gender Information Value Date Recorded Sex Assigned at Not on file Legal Sex Male 3:45 PM CDT Gender Identity Not on file Sexual Orientation Not on file documented as of this encounter Miscellaneous Notes * Cerner Conversion Note - Haroldo ProviderMD - 10/14/2019 8:22 PM STRATEGIC COMMUNICATIONS MANAGER Patient: ZACKARY ANTOINE Age: 68 Years Sex: Male : 1950 Chief Complaint c/o L sided, non-radiating dull chest pressure constant in nature onset approx 2 weeks ago, reproduceable with movement of arm or laying on side. Primary Care Provider KATELYN MCKEON MD-[facility] Vital Signs T: 36.8 ??C TMIN: [...] tablet 5 mg = 1 Tab, Oral, [id number] Eliquis 5 mg oral tablet 5 mg [...] Lymph # 1.49 K/uL 10/14/2019 14:46 EST [place] % 8.9 % 10/14/2019 14:46 EST [place] # 0.69 K/uL 10/14/2019 14:46 EST Eos [...] on filedocumented in this encounter Care Teams [facility] Relationship Specialty Start Date End Date Marielos Amaral, MANAGER OF PLANNING [address] [phone] PCP - General Nurse Practitioner 08/18/23 documented as of this encounter
--- OUTSIDE RECORDS SUMMARY | 2025-05-20 11:53 | XMS_ITS | Encounter Summary ---
Author Organization [employer] ([place], [place], [place], [place]) Address [address] [place] [address] Care Team Providers Care Dsp Engineer Name Role Phone Marielos Amaral KAYE Primary Care Provider [phone] Encounter Details Date Type Department Care Team (Late st Contact Info) Description 10/14/2019 Transcribed Document [facility] [place] Family Medicine [address] [place] [address] ProviderHaroldo MD [address] [place] [address] Social History Tobacco Use Types Packs/Day Years Used Date Smoking Tobacco: Never Assessed Sex and Gender Information Value Date Recorded Sex Assigned at Not on file Legal Sex Male 3:45 PM CDT Gender Identity Not on file Sexual Orientation Not on file documented as of this encounter Miscellaneous Notes * Cerner Conversion Note - Haroldo ProviderMD - 10/14/2019 1:50 PM SULFONATION EQUIPMENT OPERATOR ED Triage Entered On: 10/14/2019 14:07 EST [...] : 2 - Emergent Tracking Group : [facility] ED ASHLEY ZUÑIGA - 10/14/2019 14:04 EST [...] 10/14/2019 14:07:48 EST) Problems(Active) Angina (SNOMED CT :762641114 ) Name of Problem: Angina ; Recorder: RAVEN REILLY RN; Confirmation: Confirmed ; Classification: Patient Stated ; Code: [id number] ; Contributor System: [employer] ; Last Updated: 07/20/2014 9:33 EDT ; Life Cycle Date: 07/20/2014 ; Life Cycle Status: Active ; Vocabulary: SNOMED CT Coronary artery disease (SNOMED CT :0178321487 ) Name of Problem: Coronary artery disease ; Recorder: RAVEN REILLY RN; Confirmation: Confirmed ; Classification: Patient Stated ; Code: 2409598059 ; Contributor System: [employer] ; Last Updated: 07/20/2014 9:33 EDT ; Life Cycle Date: 07/20/2014 ; Life Cycle Status: Active ; Vocabulary: SNOMED CT Diabetes mellitus type II (SNOMED CT :63143324 ) Name of Problem: Diabetes mellitus type II ; Recorder: RAVEN REILLY RN; Confirmation: Confirmed ; Classification: Patient Stated ; Code: 97436774 ; Contributor System: Power[employer] ; Last Updated: 07/20/2014 9:35 EDT ; Life Cycle Date: 07/20/2014 ; Life Cycle Status: Active ; Vocabulary: SNOMED CT Enlarged prostate (SNOMED CT :300054482 ) Name of Problem: Enlarged prostate ; Recorder: RAVEN REILLY RN; Confirmation: Confirmed ; Classification: Patient Stated ; Code: 635190971 ; Contributor System: Power[employer] ; Last Updated: 07/20/2014 9:34 EDT ; Life Cycle Date: 07/20/2014 ; Life Cycle Status: Active ; Vocabulary: SNOMED CT GERD - Gastro-esophageal reflux disease (SNOMED CT :3388012847 ) Name of Problem: GERD - Gastro-esophageal reflux disease ; Recorder: RAVEN REILLY RN; Confirmation: Confirmed ; Classification: Patient Stated ; Code: 3275133059 ; Contributor System: PowerChart ; Last Updated: 07/20/2014 9:34 EDT ; Life Cycle Date: 07/20/2014 ; Life Cycle Status: Active ; Vocabulary: SNOMED CT Heart failure (SNOMED CT :557828149 ) Name of Problem: Heart failure ; Recorder: RAVEN REILLY RN; Confirmation: Confirmed ; Classification: Patient Stated ; Code: 436263913 ; Contributor System: [employer] ; Last Updated: 07/20/2014 9:33 EDT ; Life Cycle Date: 07/20/2014 ; Life Cycle Status: Active ; Vocabulary: SNOMED CT Heart murmur (SNOMED CT :013905338 ) Name of Problem: Heart murmur ; Recorder: RAVEN REILLY RN; Confirmation: Confirmed ; Classification: Patient Stated ; Code: 810434057 ; Contributor System: Power[employer] ; Last Updated: 07/20/2014 9:33 EDT ; Life Cycle Date: 07/20/2014 ; Life Cycle Status: Active ; Vocabulary: SNOMED CT History of obstructive sleep apnea (IMO :06920339 ) Name of Problem: History of obstructive sleep apnea ; Recorder: SYSTEM, SYSTEM; Confirmation: Confirmed ; Classification: Medical ; Code: 98007720 ; Last Updated: 01/20/2019 12:39 EDT ; Life Cycle Date: 01/20/2019 ; Life Cycle Status: Active ; Vocabulary: IMO Hyperlipidemia (SNOMED CT :74031761 ) Name of Problem: Hyperlipidemia ; Recorder: RAVEN REILLY RN; Confirmation: Confirmed ; Classification: Patient Stated ; Code: 53780255 ; Contributor System: [employer] ; Last Updated: 09/03/2017 13:38 EST ; Life Cycle Date: 07/20/2014 ; Life Cycle Status: Active ; Vocabulary: SNOMED CT Hypertension (SNOMED CT :19113656 ) Name of Problem: Hypertension ; Recorder: RAVEN REILLY RN; Confirmation: Confirmed ; Classification: Patient Stated ; Code: 95366760 ; Contributor System: PowerChart ; Last Updated: 07/20/2014 9:33 EDT ; Life Cycle Date: 07/20/2014 ; Life Cycle Status: Active ; Vocabulary: SNOMED CT Impaired vision (SNOMED CT :90373275 ) Name of Problem: Impaired vision ; Recorder: RAVEN REILLY RN; Confirmation: Confirmed ; Classification: Patient Stated ; Code: 03343173 ; Contributor System: PowerChart ; Last Updated: 07/20/2014 9:32 EDT ; Life Cycle Date: 07/20/2014 ; Life Cycle Status: Active ; Vocabulary: SNOMED CT Migraine (SNOMED CT :40778151 ) Name of Problem: Migraine ; Recorder: RAVEN REILLY RN; Confirmation: Confirmed ; Classification: Patient Stated ; Code: 98925551 ; Contributor System: PowerChart ; Last Updated: 07/20/2014 9:35 EDT ; Life Cycle Date: 07/20/2014 ; Life Cycle Status: Active ; Vocabulary: SNOMED CT Stented coronary artery (SNOMED CT :6337100944 ) Name of Problem: Stented coronary artery ; Recorder: RAVEN REILLY RN; Confirmation: Confirmed ; Classification: Patient Stated ; Code: 0628525271 ; Contributor System: [employer] ; Last Updated: 07/20/2014 9:33 EDT ; Life Cycle Date: 07/20/2014 ; Life Cycle Status: Active ; Vocabulary: SNOMED CT Diagnoses(Active) Chest pain Date: 10/14/2019 ; Diagnosis Type: Reason For Visit ; Confirmation: Complaint of ; Clinical Dx: Chest pain ; Classification: Medical ; Clinical Service: Emergency medicine ; Code: PNED ; Probability: 0 ; Diagnosis Code: [id number] ED Height and Weight Height Source : Stated Height Entry Format : [place] Height, Feet : 5 ft(Converted to: 152 cm, 60 Inch) Height, Inches : 9 Inch(Converted to: 0 ft 9 Inch, 22.86 cm) Clinical Height : 175.26 cm Weight Source, ED : Critical estimated dosing weight Weight Entry Format : [place] Weight, Pounds : 190 lb Clinical Dosing Weight : 86.36 kg Body Surface Area (BSA) : 2.02 m2 Body Mass Index : 28.1 kg/m2 (HI) [place] Body Weight (IBW) : 69.73 kg ASHLEY ZUÑIGA - 10/14/2019 14:04 EST documented in this encounter Plan of Treatment Not on file documented as of this encounter Visit Diagnoses Not on filedocumented in this encounter Care Teams Dsp Engineer Relationship Specialty Start Date End Date Marielos Amaral APRN [address] [address] PCP - General Nurse Practitioner 08/18/23 documented as of this encounter
--- OUTSIDE RECORDS SUMMARY | 2025-05-20 11:53 | XMS_ITS | Encounter Summary ---
Author Organization [employer] ([place], [place], [place], [place]) Address [address] [place] [address] Care Team Providers Care Vmware Engineer Name Role Phone Marielos Amaral KAYE Primary Care Provider Encounter Details Date Type Department Care Team (Late st Contact Info) Description 10/15/2019 Transcribed Document [facility] Family Medicine [address] [place] [address] ProviderHaroldo MD [address] [place] [address] Social History Tobacco Use Types Packs/Day Years Used Date Smoking Tobacco: Never Assessed Sex and Gender Information Value Date Recorded Sex Assigned at Not on file Legal Sex Male 3:45 PM CDT Gender Identity Not on file Sexual Orientation Not on file documented as of this encounter Miscellaneous Notes * Cerner Conversion Note - Haroldo ProviderMD - 10/15/2019 4:08 AM CHIEF EXECUTIVE OFFICER Spiritual Care Short Form Entered On: 10/15/2019 7:22 EST Performed On: 10/15/2019 4:08 EST by REJI STERLING Chaplain General Information, Spiritual Care Spiritual Care Referred by : Dry Cell Battery Assembler follow-up Reason for Visit : Follow Up Ministry Provided to : Patient, Family/Significant other Intervention/Comment/Summary Points : Met with Enriqueta (Gisselle) surg. waiting area charging her phone. Enriqueta notes patient spiritual journey as involved various Saqib centered denominations but Nondenominational best describes pt's current belief system. Chap. prov. prayer with Enriqueta focusing on pt. recovery and effectiveness of TPA. Baptist Preference : No gnosticist REJI STERLING Chaplain - 10/15/2019 7:19 EST Electronically signed by Brittany, [facility] Conversion Track Maintainer Cerner at 01/24/2023 10:18 AM CDT documented in this encounter Plan of Treatment Not on file documented as of this encounter Visit Diagnoses Not on filedocumented in this encounter Care Teams Vmware Engineer Relationship Specialty Start Date End Date Marielos Amaral, KAYE [address] [place] [address] PCP - General Nurse Practitioner 08/18/23 documented as of this encounter
--- OUTSIDE RECORDS SUMMARY | 2025-05-20 11:53 | XMS_ITS | Encounter Summary ---
Author Organization [employer] ([place], [place], [place], [place]) Address [address] [place] [address] Care Team Providers Care Gizzard Peeler Name Role Phone Marielos Amaral KAYE Primary Care Provider Encounter Details Date Type Department Care Team (Late st Contact Info) Description 04/23/2022 Transcribed Document [facility] Radiology [address] [place], [place] [id number] Saba Neal MD [address] [place] [address] [address] [place] [address] Social History Tobacco Use Types Packs/Day Years [...] Do you speak a language other than [place] Citizen at [facility]? Yes 10/30/2024 Do [...] Other (See Comment) Eliquis: 2.5 mg, Oral, [id number] Rocephin: 1 Gram, 100 mL/Hr, IV Piggyback, M98JWmy Tylenol: 650 mg, Oral, Q4H, PRN: Pain [...] mg tab 2.5 mg 1 Tab, Oral, C02FSed atorvastatin 40 mg tab 40 mg 1 Tab, Oral, At Bedtime cefTRIAXone 1 Gram, IV Piggyback, M26CQjo insulin glargine 1 unit/0.01 mL inj 5 [...] list: Medical Atrial fibrillation / SNOMED CT 19336309 / Confirmed CAD - Coronary artery disease / SNOMED CT 9337211319 / Confirmed Cardiomyopathy / SNOMED CT 160033238 / Confirmed Acute cerebrovascular accident (CVA) / SNOMED CT 045493693 / Confirmed History of obstructive sleep apnea / IMO 45580144 / Confirmed HLD - Hyperlipidemia / SNOMED CT 271041203 / Confirmed HTN - Hypertension / SNOMED CT 4968483818 / Confirmed Type 2 diabetes mellitus / SNOMED CT 746608994 / Confirmed, Active Problems (20) Acute cerebrovascular [...] 28.0 \ Radiology Results (Last 48 hours) [id number] -- 04/22/2022 12:30 CR Chest 1 Vw [...] PA apixaban (Eliquis) 2.5 mg, Oral, Tab, L14ZKev, Routine, Start 04/22/22 21:00:00 EDT, 04/22/22 21:00:00 EDT ASHLEY GALARZA PA atorvastatin 40 mg, Oral, Tab, At Bedtime, Routine, Start 04/22/22 21:00:00 EDT, 04/22/22 13:48:00 EDT ASHLEY GALARZA PA cefTRIAXone (Rocephin) 1 Gram, IV Piggyback, Inj, T36BYub, infuse over 30 Minute(s), Routine, Start 04/22/22 [...] on filedocumented in this encounter Care Teams Gizzard Peeler Relationship Specialty Start Date End Date Marielos Amaral APRN [address] [address] PCP - General Nurse Practitioner 08/18/23 documented as of this encounter
--- OUTSIDE RECORDS SUMMARY | 2025-05-20 11:53 | XMS_ITS | Encounter Summary ---
Author Organization [employer] ([place], [place], [place], [place]) Address [address] [place] [address] Care Team Providers Care Delivery Analyst Name Role Phone AmaralMarielos KAYE Primary Care Provider Encounter Details Date Type Department Care Team (Late st Contact Info) Description 10/14/2019 Transcribed Document [facility] [place] [address] [place] [address] ProviderHaroldo MD [address] [place] [address] Social History Tobacco Use Types Packs/Day Years Used Date Smoking Tobacco: Never Assessed Sex and Gender Information Value Date Recorded Sex Assigned at Not on file Legal Sex Male 3:45 PM CDT Gender Identity Not on file Sexual Orientation Not on file documented as of this encounter Miscellaneous Notes * Cerner Conversion Note - Haroldo ProviderMD - 10/14/2019 6:48 PM BREASTFEEDING PROGRAM COORDINATOR Event Note Entered On: 10/14/2019 18:49 EST Performed On: 10/14/2019 18:48 EST by LAZARA Hoang Event Note Event Date/Time : 10/14/2019 6:30 EST Event Location : Assigned room Event Details : Nursing assessment additional narrative Description of Event : Patient arrived via stretcher from ED. No acute distress. LAZARA Hoang - 10/14/2019 18:48 EST Electronically signed by Brittany [facility] Conversion Technical Aide [employer] at 01/24/2023 10:44 AM CDT documented in this encounter Plan of Treatment Not on file documented as of this encounter Visit Diagnoses Not on filedocumented in this encounter Care Teams Delivery Analyst Relationship Specialty Start Date End Date Marielos Amaral, LINE ORDERING CLINICIAN [address] [id number] PCP - General Nurse Practitioner 08/18/23 documented as of this encounter
--- OUTSIDE RECORDS SUMMARY | 2025-05-20 11:53 | XMS_ITS | Encounter Summary ---
Author Organization [employer] ([place], [place], [place], [place]) Address [address] [place] [address] Care Team Providers Care Crozer Operator Name Role Phone Marielos Amaral APRN Primary Care Provider Encounter Details Date Type Department Care Team (Late st Contact Info) Description 10/14/2019 Transcribed Document [facility] [place] Family Medicine [address] [place] [address] ProviderHaroldo MD [address] [place] [address] Social History Tobacco Use Types Packs/Day Years Used Date Smoking Tobacco: Never Assessed Sex and Gender Information Value Date Recorded Sex Assigned at Not on file Legal Sex Male 3:45 PM CDT Gender Identity Not on file Sexual Orientation Not on file documented as of this encounter Miscellaneous Notes * Cerner Conversion Note - Historical ProviderMD - 10/14/2019 5:11 PM NATIONAL SALES DIRECTOR CR Chest 1 Vw Portable Ordered: 10/14/2019 Modified Reason for Exam: Chest Pain 10/14/2019 15:41 10/14/2019 17:11 (MARILYN TOM APRN) Reviewed by Provider, No further action required x1 documented in this encounter Plan of Treatment Not on file documented as of this encounter Visit Diagnoses Not on filedocumented in this encounter Care Teams Crozer Operator Relationship Specialty Start Date End Date Marielos Amaral APRN [address] [address] PCP - General Nurse Practitioner 08/18/23 documented as of this encounter
--- OUTSIDE RECORDS SUMMARY | 2025-05-20 11:53 | XMS_ITS | Encounter Summary ---
Author Organization [employer] ([place], [place], [place], [place]) Address [address] [place] [address] Care Team Providers Care Waterproof Bag Sewer Name Role Phone Marielos Amaral KAYE Primary Care Provider Encounter Details Date Type Department Care Team (Late st Contact Info) Description 10/14/2019 Transcribed Document [facility] [place] Family Medicine [address] [place] [address] ProviderHaroldo MD [address] [place] [address] Social History Tobacco Use Types Packs/Day Years Used Date Smoking Tobacco: Never Assessed Sex and Gender Information Value Date Recorded Sex Assigned at Not on file Legal Sex Male 3:45 PM CDT Gender Identity Not on file Sexual Orientation Not on file documented as of this encounter Miscellaneous Notes * Cerner Conversion Note - Haroldo Warren MD - 10/14/2019 5:07 PM GAS LEAK INSPECTOR HELPER DATE OF CONSULTATION: 10/14/2019 NEUROLOGY CONSULTATION REASON [...] left. Otherwise, sensation intact, not ataxic with [id number]. Deep tendon reflexes were not assessed in [...] been spent in evaluation of this patient. /[id number] MD NABEEL Mcdermott/JEAN PAUL / NABEEL / MOHSEN /[id number] Electronically signed by Brittany, [facility] Conversion Tankroom Worker Cerner at 01/24/2023 10:43 AM CDT documented in this encounter Plan of Treatment Not on file documented as of this encounter Visit Diagnoses Not on filedocumented in this encounter Care Teams Waterproof Bag Sewer Relationship Specialty Start Date End Date Marielos Amaral APRN [address] [id number] PCP - General Nurse Practitioner 08/18/23 documented as of this encounter
--- OUTSIDE RECORDS SUMMARY | 2025-05-20 11:53 | XMS_ITS | Encounter Summary ---
Author Organization [employer] ([place], [place], [place], [place]) Address [address] [place] [address] Care Team Providers Care Slot Key Person Name Role Phone Munir Marielos RESTREPO Primary Care Provider [phone] Encounter Details Date Type Department Care Team (Late st Contact Info) Description 04/23/2022 Transcribed Document [facility] [place] Family Medicine [address] [place] [address] ProviderHaroldo MD [address] [place] [address] Social History Tobacco Use Types [...] Do you speak a language other than [facility]ian at [facility]? Yes 10/30/2024 Do you want help [...] On: 04/23/2022 23:32 EDT by TYSHAWN RIGGINS, RN-Hand Bootmaker ED Care Management Progress Note Discharge Arrangements : Patient Post-Acute Information Patient Name: ZACKARY ANTOINE Gender: Male : 52 Age: 71 Years No Post-Acute Placement(s) Listed No Post-Acute Service(s) Listed No [place] Referral(s) Listed TYSHAWN RIGGINS, RN-Hand Bootmaker ED - 04/23/2022 23:32 EDT Narrative Progress Note Narrative Progress Note : Dx: a/c renal failure poa with metabolic acidosis, UTI, hyponatremia HPI: presents to [facility] with d/o weakness, sliding from bed [...] eval, lives home with , 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 CM attempted to meet with pt this evening for CM eval, but pt sleeping soundly. CM will need to f/u with pt for full CM eval and send referrals as appropriate, as pt will likely benefit from HH vs inpt rehab. TYSHAWN RIGGINS, RN-Hand Bootmaker ED - 04/23/2022 23:32 EDT documented in this encounter Plan of Treatment Not on file documented as of this encounter Visit Diagnoses Not on filedocumented in this encounter Care Teams Slot Key Person Relationship Specialty Start Date End Date Marielos Amaral, AMORTIZATION SCHEDULE CLERK [address] [phone] PCP - General Nurse Practitioner 08/18/23 documented as of this encounter
--- OUTSIDE RECORDS SUMMARY | 2025-05-20 11:53 | XMS_ITS | Encounter Summary ---
Author Organization [employer] ([place], [place], [place], [place]) Address [address] [place] [address] Care Team Providers Care Lumber Carrier Name Role Phone Marielos Amaral KAYE Primary Care Provider Encounter Details Date Type Department Care Team (Late st Contact Info) Description 10/14/2019 Transcribed Document [facility] [place] [address] [place] [address] ProviderHaroldo MD [address] [place] [address] Social History Tobacco Use Types Packs/Day Years Used Date Smoking Tobacco: Never Assessed Sex and Gender Information Value Date Recorded Sex Assigned at Not on file Legal Sex Male 3:45 PM CDT Gender Identity Not on file Sexual Orientation Not on file documented as of this encounter Miscellaneous Notes * Cerner Conversion Note - Haroldo ProviderMD - 10/14/2019 4:59 PM HOUSE ADMIN Spiritual Care Assessment Entered On: 10/15/2019 10:42 EST Performed On: 10/15/2019 10:35 EST by JORDYN HART General Information Referred by : Physician Referral Reason Comment : Code Stroke Ministry Provided to : Patient, Family/Significant other Quaker Preference : No worship JORDYN HART - 10/15/2019 10:37 EST Spiritual [...] her previous family members who were in [facility]. She has been here many times with several family members being patients down through many years. Signed By: LUCY SANDERS Chaplain Spiritual Assessment Comment/Summary 10/14/19 20:18:00 responded to code stroke page @ 16:00. supportive presence and conversation with patient's , Enriqueta. 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 Signed By: LUCY SANDERS Chaplain [facility] [place] - 10/15/2019 10:37 EST Electronically signed by Brittany [facility] Conversion Cellular Equipment Repairer Cerner at 01/24/2023 10:37 AM CDT documented in this encounter Plan of Treatment Not on file documented as of this encounter Visit Diagnoses Not on filedocumented in this encounter Care Teams Lumber Carrier Relationship Specialty Start Date End Date aMrielos Amaral APRN [address] [place] [address] PCP - General Nurse Practitioner 08/18/23 documented as of this encounter
--- OUTSIDE RECORDS SUMMARY | 2025-05-20 11:53 | XMS_ITS | Encounter Summary ---
Author Organization [employer] ([place], [place], [place], [place]) Address [address] [place] [address] Care Team Providers Care Parachute Packer Name Role Phone Marielos Amaral KAYE Primary Care Provider Encounter Details Date Type Department Care Team (Late st Contact Info) Description 10/15/2019 Transcribed Document [facility] [place] Family [place] [address] [place] [address] ProviderHaroldo MD [address] [place] [address] Social History Tobacco Use Types Packs/Day Years Used Date Smoking Tobacco: Never Assessed Sex and Gender Information Value Date Recorded Sex Assigned at Not on file Legal Sex Male 3:45 PM CDT Gender Identity Not on file Sexual Orientation Not on file documented as of this encounter Miscellaneous Notes * Cerner Conversion Note - Haroldo ProviderMD - 10/15/2019 3:24 PM TILE DITCHER Initial Discharge Planning Entered On: 10/15/2019 15:26 EST Performed On: 10/15/2019 15:24 EST by HARITHA BARRIOS Rn-Arson Investigator Initial Assessment I Previously Documented Living Environment : No qualifying data available. HARITHA BARRIOS Rn-Arson Investigator - 10/15/2019 15:26 EST Living Situation : [...] Listed? : Yes Medical Durable Power of Student Services Counselor Name : None on file Legal Guardian : No Is Guardianship Needed : No HARITHA BARRIOS Rn-Arson Investigator - 10/15/2019 15:24 EST Initial Assessment II Sensory and Motor Deficits : None Current Home Treatments and Equipment : Bedside commode, Blood glucose monitor, Cane, CPAP, Shower chair, Walker HARITHA BARRIOS Rn-Arson Investigator - 10/15/2019 15:24 EST Discharge Needs I Anticipated Discharge Date : 10/16/2019 EST Anticipated Discharge To, CM : Home with family care Current Home Treatment/Equipment : Current Home Treatment/Equipment No qualifying data available. Post Acute/Home Treatments : Blood glucose monitor, CPAP, Shower chair, Walker Documentation Status Complete : Yes HARITHA BARRIOS Rn-Arson Investigator - 10/15/2019 15:24 EST Discharge Needs II Professional Skilled Services : Professional Skilled Services No qualifying data available. Needs Assistance with Transportation : No Discharge Options Discussed with Patient : Discharge transportation, DME, Home Health HARITHA BARRIOS Rn-Arson Investigator - 10/15/2019 15:24 EST Narrative Note Narrative [...] over the weekend. IM completed. HARITHA BARRIOS Rn-Arson Investigator - 10/15/2019 15:26 EST documented in this encounter Plan of Treatment Not on file documented as of this encounter Visit Diagnoses Not on filedocumented in this encounter Care Teams Parachute Packer Relationship Specialty Start Date End Date Marielos Amaral APRN [address] [address] PCP - General Nurse Practitioner 08/18/23 documented as of this encounter
--- OUTSIDE RECORDS SUMMARY | 2025-05-20 11:53 | XMS_ITS | Encounter Summary ---
Author Organization [employer] ([place], [place], [place], [place]) Address [address] [place] [address] Care Team Providers Care Lace Winder Name Role Phone Marielos Amaral KAYE Primary Care Provider Encounter Details Date Type Department Care Team (Late st Contact Info) Description 10/14/2019 Transcribed Document [facility] [place] Medicine [address] [place] [address] ProviderHaroldo MD [address] [place] [address] Social History Tobacco Use Types Packs/Day Years Used Date Smoking Tobacco: Never Assessed Sex and Gender Information Value Date Recorded Sex Assigned at Not on file Legal Sex Male 3:45 PM CDT Gender Identity Not on file Sexual Orientation Not on file documented as of this encounter Miscellaneous Notes * Cerner Conversion Note - Haroldo ProviderMD - 10/14/2019 8:18 PM CLOTH WORKER Spiritual Care Assessment Entered On: 10/14/2019 20:20 EST Performed On: 10/14/2019 20:18 EST by LUCY SANDERS Chaplain General Information Initial Visit : Yes Referred by : Code Referral Reason Comment : code stroke Ministry Provided to : Family/Significant other Worship Preference : No restoration LUCY SANDERS Chaplain - 10/14/2019 20:18 EST Spiritual Assessment Spiritual Assessment Comment/Summary Points : responded to code stroke page @ 16:00. supportive presence and conversation with patient's , Enriqueta. 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 Spirital Assessment Comment/Summary Report : SPIRITUAL ASSESSMENT COMMENT/SUMMARY No qualifying data available. LUCY SANDERS, - 10/14/2019 20:18 EST Electronically signed by [facility], [facility] Conversion Remedial Reading Teacher Cerner at 01/24/2023 10:40 AM CDT documented in this encounter Plan of Treatment Not on file documented as of this encounter Visit Diagnoses Not on filedocumented in this encounter Care Teams Lace Winder Relationship Specialty Start Date End Date Marielos Amaral, KAYE [address] [phone] PCP - General Nurse Practitioner 08/18/23 documented as of this encounter
--- OUTSIDE RECORDS SUMMARY | 2025-05-20 11:53 | XMS_ITS | Encounter Summary ---
Author Organization [employer] ([place], [place], [place], [place]) Address [address] [place] [address] Care Team Providers Care Ballet Teacher Name Role Phone Munir Marielos RESTREPO Primary Care Provider Encounter Details Date Type Department Care Team (Late st Contact Info) Description 04/23/2022 Transcribed Document [facility] [place] [address] [place] [address] ProviderHaroldo MD [address] [place], [...] a language other than [place] Citizen at [facility]? Yes 10/30/2024 [...] FANY FREEMAN, PT - 04/25/2022 11:53 EDT Bible Teacher Goals Mobility/Bed Mobility LTG PT Grid [...] on filedocumented in this encounter Care Teams Ballet Teacher Relationship Specialty Start Date End Date Marielos Amaral, KAYE [address] [address] PCP - General Nurse Practitioner 08/18/23 documented as of this encounter
--- OUTSIDE RECORDS SUMMARY | 2025-05-20 11:53 | XMS_ITS | Encounter Summary ---
Author Organization [employer] ([place], [place], [place], [place]) Address [address] [place] [address] Care Team Providers Care Theatrical Variety Agent Name Role Phone Marielos Amaral KAYE Primary Care Provider Encounter Details Date Type Department Care Team (Late st Contact Info) Description 10/14/2019 Transcribed Document [facility] [place] Family Medicine [address] [place] [address] ProviderHaroldo MD [address] [place] [address] Social History Tobacco Use Types Packs/Day Years Used Date Smoking Tobacco: Never Assessed Sex and Gender Information Value Date Recorded Sex Assigned at Not on file Legal Sex Male 3:45 PM CDT Gender Identity Not on file Sexual Orientation Not on file documented as of this encounter Miscellaneous Notes * Cerner Conversion Note - Haroldo ProviderMD - 10/14/2019 8:20 PM WEAVER APPRENTICE Spiritual Care Assessment Entered On: 10/14/2019 20:22 EST Performed On: 10/14/2019 20:20 EST by LUCY SANDERS Chaplain General Information Initial Visit : No Referred by : follow-up Ministry Provided to : Family/Significant other Lutheran Preference : No oriental orthodox LUCY SANDERS Chaplain - 10/14/2019 20:20 EST Spiritual Assessment Spiritual Assessment Comment/Summary Points : follow up visit with Enriqueta, providing and enjoying conversation about her previous family members who were in [facility]. She has been here many times with several family members being patients down through many years. Spirital Assessment Comment/Summary Report : SPIRITUAL ASSESSMENT COMMENT/SUMMARY Spiritual Assessment Comment/Summary 10/14/19 20:18:00 responded to code stroke page @ 16:00. supportive presence and conversation with patient's , Enriqueta. 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 Signed By: LUCY SANDERS Chaplain ELGIN, DAVID L, Chaplain - 10/14/2019 20:20 EST documented in this encounter Plan of Treatment Not on file documented as of this encounter Visit Diagnoses Not on filedocumented in this encounter Care Teams Theatrical Variety Agent Relationship Specialty Start Date End Date Marielos Amaral APRN [address] [address] PCP - General Nurse Practitioner 08/18/23 documented as of this encounter
--- OUTSIDE RECORDS SUMMARY | 2025-05-20 11:53 | XMS_ITS | Encounter Summary ---
Author Organization [employer] ([place], [place], [place], [place]) Address [address] [place] [address] Care Team Providers Care Marine Pipefitter Helper Name Role Phone Marielos Amaral KAYE Primary Care Provider Encounter Details Date Type Department Care Team (Late st Contact Info) Description 10/14/2019 Transcribed Document [facility] [place] [facility] [place] [address] ProviderHaroldo MD [address] [place] [address] Social History Tobacco Use Types Packs/Day Years Used Date Smoking Tobacco: Never Assessed Sex and Gender Information Value Date Recorded Sex Assigned at Not on file Legal Sex Male 3:45 PM CDT Gender Identity Not on file Sexual Orientation Not on file documented as of this encounter Miscellaneous Notes * Cerner Conversion Note - Haroldo ProviderMD - 10/14/2019 6:15 PM CIRCULATION CLERK ED Discharge Entered On: 10/14/2019 19:02 EST Performed On: 10/14/2019 18:15 EST by Ivone Damon locksmith apprentice Process Patient Disposition : Admit/Observe Personal Belongings With Patient : Yes Patient Education Completed : Yes Teaching Evaluation : Verbalizes understanding IV Discontinued : No Nursing Documentation Completed : Yes Ivone Damon, RN - 10/14/2019 19:01 EST Admission, ED Nurse Report Accepted By : CORSETIER Nurse Report Acceptance Time : 10/14/2019 18:15 EST `Nurse Report (Hand Off) : Called Accompanied By, Discharge : Spouse, Other: RN; monitor Mode Of Departure : Ivone Back RN - 10/14/2019 19:01 EST Electronically signed by Donato Soto Conversion Station Installation Supervisor Cerner at 01/24/2023 10:23 AM CDT documented in this encounter Plan of Treatment Not on file documented as of this encounter Visit Diagnoses Not on filedocumented in this encounter Care Teams Marine Pipefitter Helper Relationship Specialty Start Date End Date Marielos Amaral, KAYE [address] [place] [address] PCP - General Nurse Practitioner 08/18/23 documented as of this encounter
--- OUTSIDE RECORDS SUMMARY | 2025-05-20 11:53 | XMS_ITS | Encounter Summary ---
Author Organization [employer] ([place], [place], [place], [place]) Address [address] [place] [address] Care Team Providers Care Plycor Operator Name Role Phone Marielos Amaral KAYE Primary Care Provider Encounter Details Date Type Department Care Team (Late st Contact Info) Description 10/14/2019 Transcribed Document [facility] [place] Family Medicine [address] [place] [address] ProviderHaroldo MD [address] [place] [address] Social History Tobacco Use Types Packs/Day Years Used Date Smoking Tobacco: Never Assessed Sex and Gender Information Value Date Recorded Sex Assigned at Not on file Legal Sex Male 3:45 PM CDT Gender Identity Not on file Sexual Orientation Not on file documented as of this encounter Miscellaneous Notes * Cerner Conversion Note - Haroldo ProviderMD - 10/14/2019 4:59 PM INSPECTOR ROUGH CASTINGS Evaluation, Occupational Therapy Entered On: 10/15/2019 15:56 [...] Left UE Active ROM : WFL ARABELLA FOTSER OTR/Melvin - 10/15/2019 15:51 EST Right Upper [...] FOSTER OTR/Melvin - 10/15/2019 15:51 EST Hand Mill Worker Test : Bilateral insurance account assistant strength WFL ARABELLA FOSTER OTR/Melvin 10/15/2019 15:51 [...] ARABELLA FOSTER OTR/Melvin - 10/15/2019 15:51 EST [place] OT Charges OT Eval Moderate Complexity : 1 ARABELLA FOSTER OTR/Melvin - 10/15/2019 15:51 EST Electronically signed by [facility], [facility] Conversion Straight Tooth Gear Generator Operator Cerner at 01/24/2023 10:31 AM CDT documented in this encounter Plan of Treatment Not on file documented as of this encounter Visit Diagnoses Not on filedocumented in this encounter Care Teams Plycor Operator Relationship Specialty Start Date End Date Marielos Amaral, VINYL HANGER [address] [address] PCP - General Nurse Practitioner 08/18/23 documented as of this encounter
--- OUTSIDE RECORDS SUMMARY | 2025-05-20 11:53 | XMS_ITS | Encounter Summary ---
Author Organization [employer] ([place], [place], [place], [place]) Address [address] [place] [address] Care Team Providers Care Director Of Labor Relations Name Role Phone AmaralMarielos roque KAYE Primary Care Provider Encounter Details Date Type Department Care Team (Late st Contact Info) Description 10/14/2019 Transcribed Document [facility] [place] Medicine [address] [place] [address] ProviderHaroldo MD [address] [place] [address] Social History Tobacco Use Types Packs/Day Years Used Date Smoking Tobacco: Never Assessed Sex and Gender Information Value Date Recorded Sex Assigned at Not on file Legal Sex Male 3:45 PM CDT Gender Identity Not on file Sexual Orientation Not on file documented as of this encounter Miscellaneous Notes * Cerner Conversion Note - Haroldo ProviderMD - 10/14/2019 8:26 PM WELDING MACHINE OPERATOR GAS Pain Assessment Entered On: 10/15/2019 13:43 EST Performed On: 10/15/2019 10:44 EST by Deysi Valdes RN Intervention Information: acetaminophen Performed by RISA STRANGE on 10/15/2019 09:44:00 EST acetaminophen,650mg Oral,Pain (Mild 1-3) Pain Assessment Pain Assessment : Follow-up assessment Pain Scale Goal : 2 Pain Improved by Intervention : Yes Deysi Valdes RN - 10/15/2019 13:43 EST Electronically signed by Interface, [facility] Conversion Photoflash Powder Mixer Cerner at 01/24/2023 10:30 AM CDT documented in this encounter Plan of Treatment Not on file documented as of this encounter Visit Diagnoses Not on filedocumented in this encounter Care Teams Director Of Labor Relations Relationship Specialty Start Date End Date Marielos Amaral, KAYE [address] [phone] PCP - General Nurse Practitioner 08/18/23 documented as of this encounter
--- OUTSIDE RECORDS SUMMARY | 2025-05-20 11:53 | XMS_ITS | Encounter Summary ---
Author Organization [employer] ([place], [place], [place], [place]) Address [address] [place] [address] Care Team Providers Care Composition Molder Name Role Phone Marielos Amaral COMMERCIAL LOAN SPECIALIST Primary Care Provider Encounter Details Date Type Department Care Team (Late st Contact Info) Description 10/14/2019 Transcribed Document [facility] [place] [address] [place] [address] ProviderHaroldo MD [address] [place] [address] Social History Tobacco Use Types Packs/Day Years Used Date Smoking Tobacco: Never Assessed Sex and Gender Information Value Date Recorded Sex Assigned at Not on file Legal Sex Male 3:45 PM CDT Gender Identity Not on file Sexual Orientation Not on file documented as of this encounter Miscellaneous Notes * Cerner Conversion Note - Haroldo Warren MD - 10/14/2019 4:59 PM BALANCE TRUING INSPECTOR Swallow Evaluation Entered On: 10/15/2019 9:46 EST Performed On: 10/15/2019 9:41 EST by BIPIN LEE SLP General Information Visit Type, AIR CONDITIONING MANAGER : Initial evaluation Patient Orders : Speech Language Pathology Swallow Evaluation and Treatment -111 Start: 10/14/19 16:59:00 EST, Routine, For Swallow Eval and Treat, stroke - TYSHAWN BRANDT MD-SIN Admission Date : Admission Date/Time: 10/14/19 17:19:00 Medical Chart Reviewed, AIR CONDITIONING MANAGER : Yes Personal Devices : Personal Devices No Devices Recorded Assistive Devices : Assistive Devices No Devices Recorded Active Diagnoses : 10/14/2019 12:00 Cerebral infarction, unspecified 10/14/2019 12:00 Chest pain 10/14/2019 12:00 Chest pain, unspecified 10/14/2019 12:00 Hypertensive emergency 10/14/2019 12:00 Hypertensive urgency 10/14/2019 12:00 Other symptoms and signs involving the musculoskeletal system Therapy Diagnosis, AIR CONDITIONING MANAGER : normal swallow function Previous Speech/Language Evaluations : normal last admission with CVA Previous Swallow Precautions : 02/06/19 regular diet recommended Previous Cognitive Evaluations : normal on last admission with CVA Diet/Intake Prior to Current Admission : regular Diet/Intake During Current Admission : regular Intubation Comment, AIR CONDITIONING MANAGER : landen Vital Signs RTF : Vitals [...] 9:41 EST General Status Patient Received Status, AIR CONDITIONING MANAGER : Long sitting in bed Patient Left Status, AIR CONDITIONING MANAGER : Long sitting in bed RN/PCT Informed Comment, AIR CONDITIONING MANAGER : discussed with BIPIN HURLEY SLP - [...] evidence of dysphagia present Further Evaluation Required, AIR CONDITIONING MANAGER : none indciated at this time Swallowing [...] - 10/15/2019 9:41 EST Therapy Indication Assessment AIR CONDITIONING MANAGER Indicated : No AIR CONDITIONING MANAGER Not Indicated : At prior level of function AIR CONDITIONING MANAGER Interdisciplinary Consultation Needs : No Potential Barriers to AIR CONDITIONING MANAGER : None evident AIR CONDITIONING MANAGER Rehabilitation Potential : At prior level of function BIPIN LEE SLP - 10/15/2019 9:41 EST Swallow Plan/Goals Treatment Frequency, AIR CONDITIONING MANAGER : Other: no follow up needed BIPIN LEE SLP - 10/15/2019 9:41 EST Education Barriers To Learning : None evident Individuals Taught : Patient Readiness to Learn : Cooperative Baseline Knowledge of Topic : None Readiness to Learn : Explanation Learning Style Preferences Patient : None BIPIN LEE SLP - 10/15/2019 9:41 EST AIR CONDITIONING MANAGER Education Assessment Grid 1 Aspiration : Verbalizes understanding Diet Recommendation : Verbalizes understanding Evaluation Results : Verbalizes understanding BIPIN LEE SLP - 10/15/2019 9:[address] [facility] Charges Evaluation Swallowing Function : 1 BIPIN LEE SLP - 10/15/2019 9:41 EST Electronically signed by [facility], [facility] Conversion Assistant Mechanic Cerner at 01/24/2023 10:30 AM CDT documented in this encounter Plan of Treatment Not on file documented as of this encounter Visit Diagnoses Not on filedocumented in this encounter Care Teams Composition Molder Relationship Specialty Start Date End Date Marielos Amaral, KAYE [address] [place] [address] PCP - General Nurse Practitioner 08/18/23 documented as of this encounter
--- OUTSIDE RECORDS SUMMARY | 2025-05-20 11:53 | XMS_ITS | Encounter Summary ---
Author Organization [employer] ([place], [place], [place], [place]) Address [address] [place] [address] Care Team Providers Care Transfer Iron Operator Name Role Phone Marielos Amaral KAYE Primary Care Provider Encounter Details Date Type Department Care Team (Late st Contact Info) Description 10/14/[address] [facility] [place] Family Medicine [address] [place] [address] ProviderHaroldo MD [address] [place] [address] Social History Tobacco Use Types Packs/Day Years Used Date Smoking Tobacco: Never Assessed Sex and Gender Information Value Date Recorded Sex Assigned at Not on file Legal Sex Male 3:45 PM CDT Gender Identity Not on file Sexual Orientation Not on file documented as of this encounter Miscellaneous Notes * Cerner Conversion Note - Haroldo ProviderMD - 10/14/2019 1:50 PM CONSULTING MANAGER ED Assessment Entered On: 10/14/2019 15:40 EST Performed On: 10/14/2019 14:00 EST by Ivone Damon, BILINGUAL MEDICAL RECEPTIONIST Quick Look Assessment Level of Consciousness : Alert, Awake Affect/Behavior : Appropriate, Calm, Cooperative Orientation : Oriented x 4 Skin Temperature : Warm Skin Description : Normal for ethnicity Ivone Damon, RN - 10/14/2019 15:38 EST ED General-Functional Assess Information Obtained From : Patient, Spouse Preferred Communication Mode : Verbal Communication Barrier : None Primary Language : Scottish Any Spiritual/Cultural Needs or Requests : No [...] - 10/14/2019 15:38 EST Electronically signed by [facility], [facility] Conversion Concrete Products Machine Operator Cerner at 01/24/2023 10:31 AM CDT documented in this encounter Plan of Treatment Not on file documented as of this encounter Visit Diagnoses Not on filedocumented in this encounter Care Teams Transfer Iron Operator Relationship Specialty Start Date End Date Marielos Amaral, KAYE [address] [phone] PCP - General Nurse Practitioner 08/18/23 documented as of this encounter
--- OUTSIDE RECORDS SUMMARY | 2025-05-20 11:54 | XMS_ITS | Encounter Summary ---
Author Organization [employer] ([place], [place], [place], [place]) Address [address] [place] [address] Care Team Providers Care Tubing Oiler Name Role Phone Marielos Amaral APRN Primary Care Provider Encounter Details Date Type Department Care Team (Late st Contact Info) Description 04/14/2019 Transcribed Document [facility] [place] [address] [place] [address] ProviderHaroldo MD [address] [place] [address] Social History Tobacco Use Types Packs/Day Years [...] ELINAZACKARY /Sex: 1950 Male Med Rec #: [id number] Physician: PRINCESS DOCKERY MD-GAE Financial #: [id number] Pt. Type: O Room/Bed: Admit/Disch: 04/14/19 14:02:00 [...] filedocumented in this encounter Care Teams Tubing Oiler Relationship Specialty Start Date End Date Marielos Amaral, FACING BASTER [address] [phone] PCP - General Nurse Practitioner 08/18/23 documented as of this encounter
--- OUTSIDE RECORDS SUMMARY | 2025-05-20 11:54 | XMS_ITS | Encounter Summary ---
Author Organization [employer] ([place], [place], [place], [place]) Address [address] [place] [address] Care Team Providers Care Construction Quality Control Manager Name Role Phone Marielos Amaral KAYE Primary Care Provider Encounter Details Date Type Department Care Team (Late st Contact Info) Description 10/14/2019 Transcribed Document [facility] [place] [address] [place] [address] ProviderHaroldo MD [address] [place] [address] Social History Tobacco Use Types Packs/Day Years Used Date Smoking Tobacco: Never Assessed Sex and Gender Information Value Date Recorded Sex Assigned at Not on file Legal Sex Male 3:45 PM CDT Gender Identity Not on file Sexual Orientation Not on file documented as of this encounter Miscellaneous Notes * Cerner Conversion Note - Haroldo ProviderMD - 10/14/2019 6:06 PM RUSSIAN LANGUAGE INSTRUCTOR Rapid Response Team Documentation Entered On: 10/14/2019 [...] : Transfer to critical care Rapid Response Construction Quality Control Manager #1 : MAYLIN TOMLIN RN EGLESTON, JEREMY W, RN - 10/14/2019 18:06 EST Rapid Response Systems Assessment Oxygen Therapy Mode : Room air Angioedema Present : No Mclain Best Motor Response : Obey commands Mclain Best Verbal Response : Oriented Uvaldo Eye Opening Response : Spontaneous Mclain Coma Score : 15 Level of Consciousness [...] EST NIH Clinician Administering Scale : MAYLIN TOMLNI RN NIH Level of Consciousness (1A) : [...] (7) : Absent NIH Sensory (8) : [id number] sensory loss NIH Best Language (9) : [...] on filedocumented in this encounter Care Teams Construction Quality Control Manager Relationship Specialty Start Date End Date Marielos Amaral APRN [address] [address] PCP - General Nurse Practitioner 08/18/23 documented as of this encounter
--- OUTSIDE RECORDS SUMMARY | 2025-05-20 11:54 | XMS_ITS | Encounter Summary ---
Author Organization [facility] ([place], [place], [place], [place]) Address [address] [place] [address] Care Team Providers Care Fig Bar Machine Operator Name Role Phone Marielos Amaral KAYE Primary Care Provider Encounter Details Date Type Department Care Team (Late st Contact Info) Description 10/14/2019 Transcribed Document [facility] [place] [address] [place] [address] ProviderHaroldo MD [address] [place] [address] Social History Tobacco Use Types Packs/Day Years Used Date Smoking Tobacco: Never Assessed Sex and Gender Information Value Date Recorded Sex Assigned at Not on file Legal Sex Male 3:45 PM CDT Gender Identity Not on file Sexual Orientation Not on file documented as of this encounter Miscellaneous Notes * Cerner Conversion Note - Haroldo ProviderMD - 10/14/2019 4:59 PM MEDIA ACCOUNT EXECUTIVE Evaluation, Physical Therapy Entered On: 10/15/2019 11:08 [...] EST Treatment Time : 16 Minute(s) EHSAN OCNTRERAS, PT - 10/15/2019 12:02 EST History and [...] EST Lower Extremity RLE Active ROM : [facility] LLE Active ROM : [facility] EHSAN CONTRERAS, PT 10/15/2019 12:02 EST [...] EHSAN CONTRERAS, PT - 10/15/2019 12:02 EST [place] PT Charges PT Eval Moderate Complexity : 1 EHSAN CONTRREAS, PT - 10/15/2019 12:02 EST documented in this encounter Plan of Treatment Not on file documented as of this encounter Visit Diagnoses Not on filedocumented in this encounter Care Teams Fig Bar Machine Operator Relationship Specialty Start Date End Date Marielos Amaral, KAYE [address] [address] PCP - General Nurse Practitioner 08/18/23 documented as of this encounter
--- OUTSIDE RECORDS SUMMARY | 2025-05-20 11:54 | XMS_ITS | Encounter Summary ---
Author Organization [employer] ([place], [place], [place], [place]) Address [address] [place] [address] Care Team Providers Care Accreditation Coordinator Name Role Phone Marielos Amaral KAYE Primary Care Provider Encounter Details Date Type Department Care Team (Late st Contact Info) Description 04/14/2019 Transcribed Document [facility] [place] [facility] [place] [address] [place] [address] ProviderHaroldo MD [address] [place] [address] Social History Tobacco Use Types Packs/Day Years [...] Source : Stated Height Entry Format : [place] Height, Feet : 5 ft(Converted to: 152 cm, 60 Inch) Height, Inches : 9 Inch(Converted to: 0 ft 9 Inch, 22.86 cm) Clinical Height : 175.26 cm Weight Source : Standing scale Weight Entry Format : [place] Clinical Dosing Weight : 79.66 kg Weight, Pounds : 175 lb Weight, Ounces : 4 oz Body Surface Area (BSA) : 1.95 m2 Body Mass Index : 25.9 kg/m2 (HI) [place] Body Weight : 70 kg MIKO GALLAGHER [...] Daughter Legal Guardian : No Support Person/Patient Washer Hand : Yes Support Person/Pt Rep Name : Enriqueta - Contact Password : peanut Support Person/Pt Rep Contact Information : [phone] Want Family/Rep/Phys Notified of Admit : Yes [...] Obtained From : Patient Primary Language : British Communication Barrier : None Objects to Sharing [...] Scale Risk Level : 0-24 Low Risk Fair Play Fall Interventions : Adequate lighting, Bed in [...] of the form. Electronically signed by Brittany [facility] Conversion Natural Gas Treating Unit Operator Cerner at 01/24/2023 10:19 AM CDT documented in this encounter Plan of Treatment Not on file documented as of this encounter Visit Diagnoses Not on filedocumented in this encounter Care Teams Accreditation Coordinator Relationship Specialty Start Date End Date Marielos Amaral, COMPUTATIONAL MATHEMATICIAN [address] [place] [address] PCP - General Nurse Practitioner 08/18/23 documented as of this encounter
--- OUTSIDE RECORDS SUMMARY | 2025-05-20 11:54 | XMS_ITS | Encounter Summary ---
Author Organization [employer] ([place], [place], [place], [place]) Address [address] [place] [address] Care Team Providers Care Health Unit Supervisor Name Role Phone Munir Marielos RESTREPO Primary Care Provider Encounter Details Date Type Department Care Team (Late st Contact Info) Description 04/22/2022 Transcribed Document [facility] [place] Family Medicine [address] [place] [address] ProviderHaroldo MD [address] [place] [address] Social History Tobacco Use Types [...] Do you speak a language other than Nigerien at [facility]? Yes 10/30/2024 Do you want [...] edema. No cyanosis. Peripheral pulses are palpable. BULB FARMWORKER: No focal deficit noted grossly. Cranial nerves [...] We will follow along with other physicians. /[id number] Sarika Umana MD MA/JEAN PAUL / MA / MODL /[id number] Electronically signed by Brittany, [facility] Conversion Electronic Imaging System Operator Cerner at 01/24/2023 10:41 AM CDT documented in this encounter Plan of Treatment Not on file documented as of this encounter Visit Diagnoses Not on filedocumented in this encounter Care Teams Health Unit Supervisor Relationship Specialty Start Date End Date Marielos Amaral, SHEEP KILLER [address] [address] PCP - General Nurse Practitioner 08/18/23 documented as of this encounter
--- OUTSIDE RECORDS SUMMARY | 2025-05-20 11:54 | XMS_ITS | Encounter Summary ---
Author Organization [employer] ([place], [place], [place], [place]) Address [address] [place] [address] Care Team Providers Care Bottle Machine Operator Name Role Phone Marielos Amaral APRN Primary Care Provider Encounter Details Date Type Department Care Team (Late st Contact Info) Description 04/14/2019 Transcribed Document [facility] [place] [address] [place] [address] ProviderHaroldo MD [address] [place] [address] Social History Tobacco Use Types Packs/Day Years [...] ELINAZACKARY /Sex: 1950 Male Med Rec #: [id number] Physician: PRINCESS DOCKERY MD-GAE Financial #: [id number] Pt. Type: O Room/Bed: Admit/Disch: 04/14/19 14:02:00 - Institution: [facility] PACU Case Times Entry 1 In PACU I 04/14/19 16:45:00 Ready for PACU 04/14/19 17:09:00 Discharge Discharge from PACU 04/14/19 17:10:00 I [facility] PACU Case Times Audit 04/14/19 17:10:08 Records Tech: AZC Modifier: BICKNEA <+> 1 Ready for PACU Discharge <+> 1 Discharge from PACU I Finalized By: Ivone Humphreys, RN Document Signatures Signed By: Ivone Humphreys, LUIS 04/14/19 17:19 documented in this encounter Plan of Treatment Not on file documented as of this encounter Visit Diagnoses Not on filedocumented in this encounter Care Teams Bottle Machine Operator Relationship Specialty Start Date End Date Marielos Amaral, BEARING MAKER [address] [phone] PCP - General Nurse Practitioner 08/18/23 documented as of this encounter
--- OUTSIDE RECORDS SUMMARY | 2025-05-20 11:54 | XMS_ITS | Encounter Summary ---
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 Initially biopsies did show [...] on filedocumented in this encounter Care Teams Commissary Superintendent Relationship Specialty Start Date End Date Marielos Amaral APRN [address] [address] PCP - General Nurse Practitioner 08/18/23 documented as of this encounter
--- OUTSIDE RECORDS SUMMARY | 2025-05-20 11:54 | XMS_ITS | Encounter Summary ---
Author Organization [employer] ([place], [place], [place], [place]) Address [address] [place] [address] Care Team Providers Care Escalator Installer Name Role Phone AmaralMarielos roque KAYE Primary Care Provider Encounter Details Date Type Department Care Team (Late st Contact Info) Description 10/14/2019 Transcribed Document [facility] [place] Family Medicine [address] [place] [address] ProviderHaroldo MD [address] [place] [address] Social History Tobacco Use Types Packs/Day Years Used Date Smoking Tobacco: Never Assessed Sex and Gender Information Value Date Recorded Sex Assigned at Not on file Legal Sex Male 3:45 PM CDT Gender Identity Not on file Sexual Orientation Not on file documented as of this encounter Miscellaneous Notes * Cerner Conversion Note - Haroldo ProviderMD - 10/14/2019 8:22 PM SOUVENIR AND NOVELTY MAKER DATE OF ADMISSION: 10/14/2019 CHIEF COMPLAINT: Chest [...] He was taken off aspirin by his psychiatric attendant at [place]. The remaining medications of preliminary ones include: [...] his chest pain, the patient assessment for [place] with repeat troponin. The patient received aspirin [...] and they are aware of the plan. /[id number] Brennan Lopes MD GG/AQ / GG / MODL CC: Dr. Head Electronically signed by [facility], [facility] Conversion Extern Cerner at 01/24/2023 10:21 AM CDT documented in this encounter Plan of Treatment Not on file documented as of this encounter Visit Diagnoses Not on filedocumented in this encounter Care Teams Escalator Installer Relationship Specialty Start Date End Date Munir KAYE Acreo [address] [address] PCP - General Nurse Practitioner 08/18/23 documented as of this encounter
--- OUTSIDE RECORDS SUMMARY | 2025-05-20 11:54 | XMS_ITS | Encounter Summary ---
Author Organization [employer] ([place], [place], [place], [place]) Address [address] [place] [address] Care Team Providers Care Radio Reporter Name Role Phone Marielos Amaral KAYE Primary Care Provider Encounter Details Date Type Department Care Team (Late st Contact Info) Description 10/14/2019 Transcribed Document [facility] [place] Family Medicine [address] [place] [address] ProviderHaroldo MD [address] [place] [address] Social History Tobacco Use Types Packs/Day Years Used Date Smoking Tobacco: Never Assessed Sex and Gender Information Value Date Recorded Sex Assigned at Not on file Legal Sex Male 3:45 PM CDT Gender Identity Not on file Sexual Orientation Not on file documented as of this encounter Miscellaneous Notes * Cerner Conversion Note - Historical ProviderMD - 10/14/2019 1:50 PM SUPERVISOR TYPESETTING [place] Suicide Severity Rating Scale (C-SSRS) Entered On: 10/14/2019 15:40 EST Performed On: 10/14/2019 14:00 EST by Ivone Damon RN [place] Suicide Severity Rating Scale (C-SSRS) CSSRS Past Month Wish to be : No CSSRS Past Month Suicidal Thoughts : No CSSRS Lifetime Suicide Behavior : No Suicide Severity Rating Score : 0 Suicide Severity Rating : No Additional Care Required at this time Ivone Damon RN - 10/14/2019 15:38 EST Electronically signed by Brittany [facility] Conversion Eyelet Riveter Cerner at 01/24/2023 10:18 AM CDT documented in this encounter Plan of Treatment Not on file documented as of this encounter Visit Diagnoses Not on filedocumented in this encounter Care Teams Radio Reporter Relationship Specialty Start Date End Date Marielos Amaral, TRANSLITERATOR [address] [address] PCP - General Nurse Practitioner 08/18/23 documented as of this encounter
--- OUTSIDE RECORDS SUMMARY | 2025-05-20 11:54 | XMS_ITS | Encounter Summary ---
Author Organization [employer] ([place], [place], [place], [place]) Address [address] [place] [address] Care Team Providers Care School Cook Name Role Phone AmaralMarielos roque KAYE Primary Care Provider Encounter Details Date Type Department Care Team (Late st Contact Info) Description 10/14/2019 Transcribed Document [facility] [place] [address] [place] [address] ProviderHaroldo MD [address] [place] [address] Social History Tobacco Use Types Packs/Day Years Used Date Smoking Tobacco: Never Assessed Sex and Gender Information Value Date Recorded Sex Assigned at Not on file Legal Sex Male 3:45 PM CDT Gender Identity Not on file Sexual Orientation Not on file documented as of this encounter Miscellaneous Notes * Cerner Conversion Note - Haroldo ProviderMD - 10/14/2019 5:17 PM MILEAGE CLERK Admission History, Adult Entered On: 10/14/2019 18:33 [...] Spouse Legal Guardian : No Support Person/Patient Doctor Of Osteopathy : Yes Support Person/Pt Rep Name : Enriqueta - Contact Password : peanut Support Person/Pt Rep Contact Information : [phone] Want Family/Rep/Phys Notified of Admit : No [...] From : Patient, Spouse Primary Language : Argentine Preferred Communication Mode : Verbal Communication Barrier [...] Scale Risk Level : 25-45 Medium Risk Tracy Fall Interventions : Adequate lighting, Assistive devices [...] Source : Stated Height Entry Format : [place] Height, Feet : 5 ft(Converted to: 152 cm, 60 Inch) Height, Inches : 9 Inch(Converted to: 0 ft 9 Inch, 22.86 cm) Clinical Height : 175.26 cm Weight Source : Bed scale Weight Entry Format : [place] Clinical Dosing Weight : 86.36 kg Weight, Pounds : 190 lb Body Surface Area (BSA) : 2.02 m2 Body Mass Index : 28.1 kg/m2 (HI) [place] Body Weight : 70 kg LAZARA Hoang [...] at risk LAZARA Hoang 10/14/2019 18:28 EST [place] Suicide Severity Rating Scale (C-SSRS) CSSRS Past [...] on filedocumented in this encounter Care Teams School Cook Relationship Specialty Start Date End Date Marielos Amaral, KAYE [address] [phone] PCP - General Nurse Practitioner 08/18/23 documented as of this encounter
--- OUTSIDE RECORDS SUMMARY | 2025-05-20 11:54 | XMS_ITS | Encounter Summary ---
Author Organization [employer] ([place], [place], [place], [place]) Address [address] [place] [address] Care Team Providers Care Funeral Greeter Name Role Phone Munir Marielos RESTREPO Primary Care Provider [phone] Encounter Details Date Type Department Care Team (Late st Contact Info) Description 04/22/2022 Transcribed Document [facility] [place] [address] [place] [address] ProviderHaroldo MD [address] [place] [address] Social History Tobacco Use Types [...] Do you speak a language other than Cambodian at [facility]? Yes 10/30/2024 Do you [...] EDT Performed On: 04/23/2022 10:00 EDT by USAH REICH, PT General Information, PT Visit Type, [...] USHA REICH, PT - 04/23/2022 13:50 EDT Rn Ccu Goals Mobility/Bed Mobility LTG PT Grid Goal [...] USHA REICH PT - 04/23/2022 15:19 EDT [place] PT Charges PT Ther Activities Ea 15 Min : 1 PT Eval Low Complexity : 1 USHA REICH PT - 04/23/2022 15:19 EDT documented in this encounter Plan of Treatment Not on file documented as of this encounter Visit Diagnoses Not on filedocumented in this encounter Care Teams Funeral Greeter Relationship Specialty Start Date End Date Marielos Amaral APRN [address] [address] PCP - General Nurse Practitioner 08/18/23 documented as of this encounter
--- OUTSIDE RECORDS SUMMARY | 2025-05-20 11:54 | XMS_ITS | Encounter Summary ---
Author Organization [employer] ([place], [place], [place], [place]) Address [address] [place] [address] Care Team Providers Care Registered Veterinary Technician Name Role Phone Marielos Amaral FLOOR SCRAPER Primary Care Provider Encounter Details Date Type Department Care Team (Late st Contact Info) Description 04/14/2019 Transcribed Document [facility] [place] [address] [place] [address] ProviderHaroldo MD [address] [place] [address] Social History Tobacco Use Types Packs/Day Years Used Date Smoking Tobacco: Never Assessed Sex and Gender Information Value Date Recorded Sex Assigned at Not on file Legal Sex Male 3:45 PM CDT Gender Identity Not on file Sexual Orientation Not on file documented as of this encounter Miscellaneous Notes * Cerner Conversion Note - Haroldo ProviderMD - 04/14/2019 5:07 PM CDT [address] [address] ELINA ZACKARY COOK :1950 Visit [...] DOCKERY MD-GAE When Within As needed Where: [address] [place] [address] Medications What How Much When Instructions Next [...] Assistance with quitting is available by contacting 6-524-RJEGNOW. This is a free resource providing counseling, support, and referral. Or you may contact your personal physician. DJTUNES.COM Suicide Prevention Lifeline: The National Suicide Prevention [...] was given the opportunity to ask questions. Patient/Metal Hardener Name: Patient/Metal Hardener Signature: Relationship to Patient: Clinician/Hospital Metal Hardener Signature: Date: Electronically signed by Brittany, [facility] Conversion Vacuum Applicator Operator [employer] at 01/24/2023 10:19 AM CDT documented in this encounter Plan of Treatment Not on file documented as of this encounter Visit Diagnoses Not on filedocumented in this encounter Care Teams Registered Veterinary Technician Relationship Specialty Start Date End Date Marielos Amaral APRN [address] [address] PCP - General Nurse Practitioner 08/18/23 documented as of this encounter
--- OUTSIDE RECORDS SUMMARY | 2025-05-20 11:54 | XMS_ITS | Encounter Summary ---
Author Organization [employer] ([place], [place], [place], [place]) Address [address] [place] [address] Care Team Providers Care Drop Hammer Set Up Operator Name Role Phone Marielos Amaral APRN Primary Care Provider Encounter Details Date Type Department Care Team (Late st Contact Info) Description 10/14/2019 Transcribed Document [facility] [place] [address] [place] [address] ProviderHaroldo MD [address] [place] [address] Social History Tobacco Use Types Packs/Day Years Used Date Smoking Tobacco: Never Assessed Sex and Gender Information Value Date Recorded Sex Assigned at Not on file Legal Sex Male 3:45 PM CDT Gender Identity Not on file Sexual Orientation Not on file documented as of this encounter Miscellaneous Notes * Cerner Conversion Note - Historical ProviderMD - 10/14/2019 2:15 PM INJECTION MOLDING MACHINE OPERATOR Patient: ZACKARY ANTOINE Age: 68 [...] 5 mg oral tablet: 1 Tab, Oral, [id number], 60 Tab, 0 Refill(s) Toprol-XL 25 mg [...] history: Cardiac catheterization. hernia repair. Tonsillectomy. Cholecystectomy; (09850). Appendectomy. left arm surgery. Coronary stents., Reviewed [...] EST Height Source Stated Height Entry Format [place] Height/Length, UKRAINIAN (ft) 5 ft Height/Length UKRAINIAN 9 Inch CLINICALHEIGHT 175.26 cm [place] Body Weight 69.73 kg Weight Source, ED Critical estimated dosing weight Weight Entry Format [place] Weight French lb 190 lb CLINICALWEIGHT 86.36 kg Body [...] 82, normal sinus rhythm, no ectopy, normal VT & QRS intervals, EP Interp, ns st [...] 19.2 % LOW Lymph # 1.49 K/uL [place] % 8.9 % [place] # 0.69 K/uL Eos % 1.4 % Eos # 0.11 Baso % 0.3 % Baso # 0.02 Slide Review No . Chest X-Ray: Time reported 10/14/2019 17:04:00, no acute disease process, interpretation by Emergency Physician. Radiology results: Radiology Results (Last 48 hours) [id number] -- 10/14/2019 13:50 CR Chest 1 Vw [...] on filedocumented in this encounter Care Teams Drop Hammer Set Up Operator Relationship Specialty Start Date End Date Amaral, Marielos, MACHINE GUNNER [address] [phone] PCP - General Nurse Practitioner 08/18/23 documented as of this encounter
--- OUTSIDE RECORDS SUMMARY | 2025-05-20 11:54 | XMS_ITS | Encounter Summary ---
Author Organization [employer] ([place], [place], [place], [place]) Address [address] [place] [address] Care Team Providers Care Pollution Control Engineer Name Role Phone Marielos Amaral APRN Primary Care Provider Encounter Details Date Type Department Care Team (Late st Contact Info) Description 04/14/2019 Transcribed Document [facility] [place] Family Medicine [address] [place] [address] ProviderHaroldo MD [address] [place] [address] Social History Tobacco Use Types Packs/Day Years [...] ELINADEION /Sex: 1950 Male Med Rec #: [id number] Physician: PRINCESS DOCKERY MD-GAE Financial #: [id number] Pt. Type: O Room/Bed: Admit/Disch: 04/14/19 14:02:00 - Institution: [facility] [place] - Case Attendance Entry 1 Entry 2 Entry 3 Case Attendee PRINCESS DOCKERY Bicknell, Ashley, RN OCTAVIA NORRIS MD MD-GAE Role Performed Surgeon/Proceduralist, Wood Heel Attacher, First Anesthesiologist First Time In 04/14/19 16:31:00 [...] By: Ivone Humphreys RN 04/14/19 16:38:58 [facility] [place] Endo - Case Attendance Audit 04/14/19 16:38:58 Alternative Financing Specialist: BICKNEA Modifier: BICKNEA 1 <+> Time Out 1 <*> Procedure Esophageal Biopsy, EGD w Radiofrequency Ablation 2 <+> Time Out 2 <*> Procedure Esophageal Biopsy, EGD w Radiofrequency Ablation 3 <+> Time Out 3 <*> Procedure Esophageal Biopsy, EGD w Radiofrequency Ablation 4 <+> Time Out 4 <*> Procedure Esophageal Biopsy, EGD w Radiofrequency Ablation 04/14/19 16:36:43 Alternative Financing Specialist: BICKNEA Modifier: BICKNEA 1 <*> Procedure Esophageal Biopsy 2 <*> Procedure Esophageal Biopsy 3 <*> Procedure Esophageal Biopsy 4 <*> Procedure Esophageal Biopsy 04/14/19 16:36:34 Alternative Financing Specialist: BICKNEA Modifier: BICKNEA 1 <*> Procedure Esophagogastroduodenoscopy, Esophageal Biopsy 2 <*> Procedure Esophagogastroduodenoscopy, Esophageal Biopsy 3 <*> Procedure Esophagogastroduodenoscopy, Esophageal Biopsy 4 <*> Procedure Esophagogastroduodenoscopy, Esophageal Biopsy 04/14/19 16:33:43 Alternative Financing Specialist: CHASKNEA Modifier: BICKNEA 1 <*> Procedure Esophagogastroduodenoscopy 2 <*> Procedure Esophagogastroduodenoscopy 3 <*> Procedure Esophagogastroduodenoscopy 4 <*> Procedure Esophagogastroduodenoscopy 04/14/19 16:31:13 Alternative Financing Specialist: BICKNEA Modifier: BICKNEA 1 <*> Time In 04/14/19 16:26:00 1 <*> Procedure Esophagogastroduodenoscopy 04/14/19 16:27:03 Alternative Financing Specialist: BICKNEA Modifier: BICKNEA <+> 1 Procedure 2 [...] Endo - Case Times Audit 04/14/19 16:38:53 Alternative Financing Specialist: BOOGIEEA Modifier: BICKNEA <+> 1 Out Room Time <+> 1 Stop Time <+> 1 Stop Time 04/14/19 16:33:07 Alternative Financing Specialist: CHASKNEA Modifier: BICKNEA <+> 1 Start Time [...] By: Ivone Humphreys RN 04/14/19 16:27:00 [facility] [place] Endo - Fire Risk Assessment Entry 1 [...] 04/14/19 16:27:07 [place] [facility] - General Case Oil Heat Technician 1 Case Information OR Endo 02 [facility] [place] Case Level 1 Room Verified Yes Wound Class II - Clean-Contaminated Specialty SN Gastroenterology Anesthesia Type MAC ASA 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 Last Modified By: Ivone Humphreys RN 04/14/19 16:39:42 [facility] [place] Endo - General Case Data Audit 04/14/19 16:39:42 Alternative Financing Specialist: BICKNEA Modifier: BICKNEA <+> 1 Postop Diagnosis 04/14/19 16:32:15 Alternative Financing Specialist: BOOGIEEA Modifier: BICKNEA 1 <+> Postop Same As Preop 1 <*> Preop Diagnosis K22.719 [facility] [place] Endo - Intraoperative Assessment Entry 1 Valid [...] Endo - Patient Positioning Audit 04/14/19 16:36:45 Alternative Financing Specialist: BICKNEA Modifier: BICKNEA 1 <*> Procedure Esophageal Biopsy 04/14/19 16:36:34 Alternative Financing Specialist: BICKNEA Modifier: BICKNEA 1 <*> Procedure Esophagogastroduodenoscopy, Esophageal Biopsy 04/14/19 16:33:45 Alternative Financing Specialist: BICKNEA Modifier: BICKNEA 1 <*> Procedure Esophagogastroduodenoscopy [...] Endo - Surgical Procedures Audit 04/14/19 16:39:00 Alternative Financing Specialist: BICKNEA Modifier: BICKNEA <+> 1 Stop <+> 2 Stop 04/14/19 16:36:40 Alternative Financing Specialist: CHASKNEA Modifier: BICKNEA 1 <*> Procedure Esophagogastroduodenoscopy 04/14/19 16:33:38 Alternative Financing Specialist: BICKNEA Modifier: BICKNEA <+> 1 Start <+> 2 Procedure <+> 2 Primary Procedure <+> 2 Primary Surgeon <+> 2 Specialty <+> 2 Start <+> 2 Wound Class <+> 2 Anesthesia Type 04/14/19 16:28:17 Alternative Financing Specialist: BOOGIEEA Modifier: BICKNEA 1 <*> Procedure Esophagogastroduodenoscopy 1 <+> Specialty [facility] [place] Endo - Time Out Entry 1 Procedure [...] Endo - Time Out Audit 04/14/19 16:36:45 Alternative Financing Specialist: ZAC Modifier: ZAC 1 <*> Procedure to be Performed Esophageal Biopsy 04/14/19 16:36:35 Alternative Financing Specialist: ZAC Modifier: CHASKNEA 1 <*> Procedure to be Performed Esophagogastroduodenoscopy, Esophageal Biopsy 04/14/19 16:33:46 Alternative Financing Specialist: ZAC Modifier: BICKNEA 1 <*> Procedure to be Performed Esophagogastroduodenoscopy Case Comments <None> Finalized By: Ivone Humphreys RN Document Signatures Signed By: Ivone Humphreys RN 04/14/19 16:39 documented in this encounter Plan of Treatment Not on file documented as of this encounter Visit Diagnoses Not on filedocumented in this encounter Care Teams Pollution Control Engineer Relationship Specialty Start Date End Date Marielos Amaral, SMALL KICK PRESS OPERATOR [address] [address] PCP - General Nurse Practitioner 08/18/23 documented as of this encounter
--- OUTSIDE RECORDS SUMMARY | 2025-05-20 11:54 | XMS_ITS | Encounter Summary ---
Author Organization [employer] ([place], [place], [place], [place]) Address [address] [place] [address] Care Team Providers Care Assistant Sales Manager Name Role Phone AmaralMarielos KAYE Primary Care Provider [phone] Encounter Details Date Type Department Care Team (Late st Contact Info) Description 04/14/2019 Transcribed Document [facility] [place] [address] [place] [address] ProviderHaroldo MD [address] [place] [address] Social History Tobacco Use Types Packs/Day Years [...] Friday-Friday 7:00 am to 3:00 pm at Electronically signed by Renetta Soto Conversion Fighting Vehicle Systems Maintainer Cerner at 01/24/2023 10:29 AM CDT documented in this encounter Plan of Treatment Not on file documented as of this encounter Visit Diagnoses Not on filedocumented in this encounter Care Teams Assistant Sales Manager Relationship Specialty Start Date End Date Marielos Amaral, KAYE [address] [id number] PCP - General Nurse Practitioner 08/18/23 documented as of this encounter
--- OUTSIDE RECORDS SUMMARY | 2025-05-20 11:54 | XMS_ITS | Encounter Summary ---
Author Organization [employer] ([place], [place], [place], [place]) Address [address] [place] [address] Care Team Providers Care Bread Icer Name Role Phone Munir Marielos RESTREPO Primary Care Provider Encounter Details Date Type Department Care Team (Late st Contact Info) Description 04/22/2022 Transcribed Document [facility] [place] Family Medicine [address] [place] [address] ProviderHaroldo MD [address] [place] [address] Social History Tobacco Use Types [...] Do you speak a language other than Maltese at [facility]? Yes 10/30/2024 Do [...] On: 04/22/2022 22:23 EDT by Almas Gómez, Labor And Employment Paralegal Cert Lead Meds to Bed Enrollment Patient Enrollment Decision: : Yes/enroll in meds to bed program Almas Gómez Labor And Employment Paralegal Cert Lead - 04/23/2022 10:39 EDT documented in this encounter Plan of Treatment Not on file documented as of this encounter Visit Diagnoses Not on filedocumented in this encounter Care Teams Bread Icer Relationship Specialty Start Date End Date Marielos Amaral, RESOURCE PARAPROFESSIONAL [address] [id number] PCP - General Nurse Practitioner 08/18/23 documented as of this encounter
--- OUTSIDE RECORDS SUMMARY | 2025-05-20 11:54 | XMS_ITS | Encounter Summary ---
Author Organization [employer] ([place], [place], [place], [place]) Address [address] [place] [address] Care Team Providers Care Strategic Planner Name Role Phone Munir Marielos RESTREPO Primary Care Provider [phone] Encounter Details Date Type Department Care Team (Late st Contact Info) Description 04/22/2022 Transcribed Document [facility] [place] Family Medicine [address] [place] [address] ProviderHaroldo MD [address] [place] [address] Social History Tobacco Use Types [...] Do you speak a language other than Palauan at [facility]? Yes [...] Historical Provider, - 04/22/2022 9:14 AM CDT [place] Suicide Severity Rating Scale (C-SSRS) Entered On: 04/22/2022 10:04 EDT Performed On: 04/22/2022 10:02 EDT by Shala Cole RN [place] Suicide Severity Rating Scale (C-SSRS) CSSRS Past Month Wish to be : No CSSRS Past Month Suicidal Thoughts : No CSSRS Lifetime Suicide Behavior : No Suicide Severity Rating Score : 0 Suicide Severity Rating : No Additional Care Required at this time Shala Cole RN - 04/22/2022 10:02 EDT Electronically signed by Brittany [facility] Conversion Worm Raiser Cerner at 01/24/2023 10:42 AM CDT documented in this encounter Plan of Treatment Not on file documented as of this encounter Visit Diagnoses Not on filedocumented in this encounter Care Teams Strategic Planner Relationship Specialty Start Date End Date Marielos Amaral APRN [address] [address] PCP - General Nurse Practitioner 08/18/23 documented as of this encounter
--- OUTSIDE RECORDS SUMMARY | 2025-05-20 11:54 | XMS_ITS | Encounter Summary ---
Author Organization [employer] ([place], [place], [place], [place]) Address [address] [place] [address] Care Team Providers Care Board Filler Name Role Phone Munir Marielos RESTREPO Primary Care Provider [phone] Encounter Details Date Type Department Care Team (Late st Contact Info) Description 04/22/2022 Transcribed Document [facility] [place] [address] [place] [address] ProviderHaroldo MD [address] [place] [address] Social History Tobacco Use Types [...] you speak a language other than St Helenian at [facility]? Yes 10/30/2024 Do you want [...] Historical Provider, - 04/22/2022 1:51 PM CDT ENGINEERING TEST MECHANIC Attempt to Treat Entered On: 04/22/2022 13:51 EDT Performed On: 04/22/2022 13:51 EDT by TOVA LOPEZ SLP Attempt to Treat Unable to Treat Due To : Patient Unavailable Inability to Treat Comment : Pt leaving for CT. ENGINEERING TEST MECHANIC will check back as schedule allows. Notification : TOVA MACIAS, RAMONA - 04/22/2022 13:51 EDT Electronically signed by Brittany [facility] Conversion Instructor Robotics Cerner at 01/24/2023 10:39 AM CDT documented in this encounter Plan of Treatment Not on file documented as of this encounter Visit Diagnoses Not on filedocumented in this encounter Care Teams Board Filler Relationship Specialty Start Date End Date Marielos Amaral, SYSTEMS INTEGRATION ENGINEER [address] [place] [address] PCP - General Nurse Practitioner 08/18/23 documented as of this encounter
--- OUTSIDE RECORDS SUMMARY | 2025-05-20 11:54 | XMS_ITS | Encounter Summary ---
Author Organization [employer] ([place], [place], [place], [place]) Address [address] [place] [address] Care Team Providers Care Mechanical Systems Designer Name Role Phone Munir Marielos RESTREPO Primary Care Provider [phone] Encounter Details Date Type Department Care Team (Late st Contact Info) Description 04/22/2022 Transcribed Document [facility] [place] [address] [place] [address] ProviderHaroldo MD [address] [place] [address] Social History Tobacco Use Types [...] speak a language other than Japanese at [facility]? Yes 10/30/2024 Do you want help with [...] filedocumented in this encounter Care Teams Mechanical Systems Designer Relationship Specialty Start Date End Date Marielos Amaral, KAYE [address] [place] [address] PCP - General Nurse Practitioner 08/18/23 documented as of this encounter
--- OUTSIDE RECORDS SUMMARY | 2025-05-20 11:54 | XMS_ITS | Encounter Summary ---
Author Organization [employer] ([place], [place], [place], [place]) Address [address] [place] [address] Care Team Providers Care Blood Tester Fowl Name Role Phone Munir Marielos RESTREPO Primary Care Provider Encounter Details Date Type Department Care Team (Late st Contact Info) Description 04/22/[address] [facility] [place] Family Medicine [address] [place] [address] ProviderHaroldo MD [address] [place] [address] Social History Tobacco Use [...] Do you speak a language other than Bhutanese at [facility]? Yes [...] 17:33 EDT by Casi Evans, Emergency Room Radio Installer Automobile ED Event Note ED Event Date/Time : 04/22/2022 17:33 EDT ED Description of Event : food tray ordered Casi Evans, Emergency Room Radio Installer Automobile - 04/22/2022 17:33 EDT Electronically signed by Brittany [facility] Conversion Room Service Supervisor Cerner at 01/24/2023 10:42 AM CDT documented in this encounter Plan of Treatment Not on file documented as of this encounter Visit Diagnoses Not on filedocumented in this encounter Care Teams Blood Tester Fowl Relationship Specialty Start Date End Date Marielos Amaral, KAYE [address] [place] [address] PCP - General Nurse Practitioner 08/18/23 documented as of this encounter
--- OUTSIDE RECORDS SUMMARY | 2025-05-20 11:55 | XMS_ITS | Encounter Summary ---
Author Organization [employer] ([place], [place], [place], [place]) Address [address] [place] [address] Care Team Providers Care Attendant Child Activity Name Role Phone Marielos Amaral KAYE Primary Care Provider Encounter Details Date Type Department Care Team (Late st Contact Info) Description 02/09/2019 Transcribed Document [facility] [place] [address] [place] [address] ProviderHaroldo MD [address] [place] [address] Social History Tobacco Use Types Packs/Day Years [...] on filedocumented in this encounter Care Teams Attendant Child Activity Relationship Specialty Start Date End Date Marielos Amaral, KAYE [address] [place] [address] PCP - General Nurse Practitioner 08/18/23 documented as of this encounter
--- OUTSIDE RECORDS SUMMARY | 2025-05-20 11:55 | XMS_ITS | Encounter Summary ---
Author Organization [employer] ([place], [place], [place], [place]) Address [address] [place] [address] Care Team Providers Care Programmer Or Analyst Name Role Phone Marielos Amaral KAYE Primary Care Provider Encounter Details Date Type Department Care Team (Late st Contact Info) Description 02/09/2019 Transcribed Document [facility] [place] Family Medicine [address] [place] [address] ProviderHaroldo MD [address] [place] [address] Social History Tobacco Use Types Packs/Day Years [...] 02/09/2019 14:15 EDT Electronically signed by Brittany [facility] Conversion Pipeline Maintenance Supervisor Cerner at 01/24/2023 10:39 AM CDT documented in this encounter Plan of Treatment Not on file documented as of this encounter Visit Diagnoses Not on filedocumented in this encounter Care Teams Programmer Or Analyst Relationship Specialty Start Date End Date Marielos Amaral, CINNAMON GRINDER [address] [place] [address] PCP - General Nurse Practitioner 08/18/23 documented as of this encounter
--- OUTSIDE RECORDS SUMMARY | 2025-05-20 11:55 | XMS_ITS | Encounter Summary ---
Author Organization [employer] ([place], [place], [place], [place]) Address [address] [place] [address] Care Team Providers Care Fruit Buying Grader Name Role Phone Munir Marielos RESTREPO Primary Care Provider Encounter Details Date Type Department Care Team (Late st Contact Info) Description 04/22/2022 Transcribed Document [facility] [place] [address] [place] [address] ProviderHaroldo MD [address] [place] [address] Social History Tobacco Use Types [...] Do you speak a language other than Gambian at [facility]? Yes 10/30/2024 Do you want [...] AGGIE LOREDO OTR/Melvin Strong 04/23/2022 13:39 EDT [facility] Goals, OT Grooming LTG Grid Goal #1 [...] AGGIE LOREDO OTR/L - 04/23/2022 13:39 EDT [place] OT Charges OT Ther Activities Ea 15 Min : 1 OT Eval Low Complexity : 1 AGGIE LOREDO OTR/L - 04/23/2022 13:39 EDT documented in this encounter Plan of Treatment Not on file documented as of this encounter Visit Diagnoses Not on filedocumented in this encounter Care Teams Fruit Buying Grader Relationship Specialty Start Date End Date Marielos Amaral, PERFORATOR TYPIST [address] [place] [address] PCP - General Nurse Practitioner 08/18/23 documented as of this encounter
--- OUTSIDE RECORDS SUMMARY | 2025-05-20 11:55 | XMS_ITS | Encounter Summary ---
Author Organization [employer] ([place], [place], [place], [place]) Address [address] [place] [address] Care Team Providers Care Rag Shredder Name Role Phone Munir Marielos RESTREPO Primary Care Provider Encounter Details Date Type Department Care Team (Late st Contact Info) Description 04/22/2022 Transcribed Document [facility] [place] [address] [place] [address] ProviderHaroldo MD [address] [place] [address] Social History Tobacco Use Types [...] Do you speak a language other than Tongan at [facility]? Yes 10/30/2024 Do you want [...] Brittany [facility] Conversion Cloth Printer Cerner at 01/24/2023 10:30 AM CDT documented in this encounter Plan of Treatment Not on file documented as of this encounter Visit Diagnoses Not on filedocumented in this encounter Care Teams Rag Shredder Relationship Specialty Start Date End Date Marielos Amaral, KAYE [address] [place] [address] PCP - General Nurse Practitioner 08/18/23 documented as of this encounter
--- OUTSIDE RECORDS SUMMARY | 2025-05-20 11:55 | XMS_ITS | Encounter Summary ---
Author Organization [employer] ([place], [place], [place], [place]) Address [address] [place] [place] [address] Care Team Providers Care Prosthodontist/Owner Name Role Phone Munir Marielos RESTREPO Primary Care Provider Encounter Details Date Type Department Care Team (Late st Contact Info) Description 04/22/2022 Transcribed Document [facility] [place] [address] [place] [address] ProviderHaroldo MD [address] [place] [address] Social History Tobacco Use Types [...] Do you speak a language other than Comoran at [facility]? Yes 10/30/2024 Do you want help with [...] on filedocumented in this encounter Care Teams Prosthodontist/Owner Relationship Specialty Start Date End Date Marielos Amaral, KAYE [address] [place] [address] PCP - General Nurse Practitioner 08/18/23 documented as of this encounter
--- OUTSIDE RECORDS SUMMARY | 2025-05-20 11:55 | XMS_ITS | Encounter Summary ---
Author Organization [employer] ([place], [place], [place], [place]) Address [address] [place] [address] Care Team Providers Care Data Entry Coordinator Name Role Phone Marielos Amaral GENERAL ACCOUNTANT Primary Care Provider [phone] Encounter Details Date Type Department Care Team (Late st Contact Info) Description 03/23/2019 Transcribed Document [address] [address] Camilo Steven MD [address] [place] [address] Social History Tobacco Use Types Packs/Day Years [...] ] Cardiac monitoring 02/06 Orders: Cardiac Monitoring Accounting Policy Consultant Signature: Nahomy Nieves CCS Phone #: [phone] Date/Time: 03/23/2019 / 13:25 CT This is a permanent part of the Medical Record documented in this encounter Plan of Treatment Not on file documented as of this encounter Visit Diagnoses Not on filedocumented in this encounter Care Teams Data Entry Coordinator Relationship Specialty Start Date End Date Marielos Amaral, GENERAL ACCOUNTANT [address] [place] [address] PCP - General Nurse Practitioner 08/18/23 documented as of this encounter
--- OUTSIDE RECORDS SUMMARY | 2025-05-20 11:55 | XMS_ITS | Encounter Summary ---
Author Organization [employer] ([place], [place], [place], [place]) Address [address] [place] [address] Care Team Providers Care Lead Press Operator Name Role Phone Marielos Amaral KAYE Primary Care Provider [phone] Encounter Details Date Type Department Care Team (Late st Contact Info) Description 02/12/2019 Transcribed Document [facility] [place] Family Medicine [address] [place] [address] ProviderHaroldo MD [address] [place] [address] Social History Tobacco Use Types Packs/Day Years [...] filedocumented in this encounter Care Teams Lead Press Operator Relationship Specialty Start Date End Date Marielos Amaral, UNDERWATER ROBOTICIST [address] [place] [address] PCP - General Nurse Practitioner 08/18/23 documented as of this encounter
--- OUTSIDE RECORDS SUMMARY | 2025-05-20 11:55 | XMS_ITS | Encounter Summary ---
Author Organization [employer] ([place], [place], [place], [place]) Address [address] [place] [address] Care Team Providers Care Materials Development Engineer Name Role Phone Marielos Amaral KAYE Primary Care Provider Encounter Details Date Type Department Care Team (Late st Contact Info) Description 02/09/2019 Transcribed Document [facility] [place] Family Medicine [address] [place] [address] ProviderHaroldo MD [address] [place] [address] Social History Tobacco Use Types Packs/Day Years [...] 02/09/2019 4:00 EDT by Jessica Diez Care [facility] Unit Coord Height and Weight, Routine Routine Weight Source : Bed scale Routine Weight Entry Format : [place] Routine Weight, Pounds : 173 lb Routine Weight, Ounces : 8 oz Routine Weight Calculation : 78.86 kg Height Source : Stated Height Entry Format : [place] Height, Feet : 5 ft Height, Inches : 9 Inch Clinical Height : 175.26 cm Body Surface Area (BSA), Routine : 1.95 m2 Body Mass Index (BMI), Routine : 25.67 kg/m2 Jessica Diez Care [facility] - 02/09/2019 7:21 EDT Electronically signed by Brittany [facility] Conversion Construction Technology Instructor Cerner at 01/24/2023 10:44 AM CDT documented in this encounter Plan of Treatment Not on file documented as of this encounter Visit Diagnoses Not on filedocumented in this encounter Care Teams Materials Development Engineer Relationship Specialty Start Date End Date Marielos Amaral, KAYE [address] [address] PCP - General Nurse Practitioner 08/18/23 documented as of this encounter
--- OUTSIDE RECORDS SUMMARY | 2025-05-20 11:56 | XMS_ITS | Encounter Summary ---
Author Organization [employer] ([place], [place], [place], [place]) Address [address] [place] [address] Care Team Providers Care Meal Cooker Name Role Phone Munir Marielos RESTREPO Primary Care Provider Encounter Details Date Type Department Care Team (Late st Contact Info) Description 04/22/2022 Transcribed Document [facility] [place] [address] [place] [address] ProviderHaroldo MD [address] [place] [address] Social History Tobacco Use Types [...] speak a language other than Cuban at [facility]? Yes 10/30/2024 Do you [...] On: 04/22/2022 21:30 EDT by Cara Butler Cook House Laborer Process Patient Disposition : Admit/Observe Personal Belongings With Patient : Yes IV Discontinued : No Cara Butler Rn - 04/23/2022 0:58 EDT Admission, ED Nurse Report Accepted By : LUIS Owusu `Nurse Report (Hand Off) : Called Fluids/Drips Continued on Admission : Yes Mode Of Departure : Stretcher Cara Butler Rn - 04/23/2022 0:58 EDT Electronically signed by Brittany [facility] Conversion Operations Business Partner Cerner at 01/24/2023 10:24 AM CDT documented in this encounter Plan of Treatment Not on file documented as of this encounter Visit Diagnoses Not on filedocumented in this encounter Care Teams Meal Cooker Relationship Specialty Start Date End Date Marielos Amaral, ROTOR WINDER [address] [address] PCP - General Nurse Practitioner 08/18/23 documented as of this encounter
--- OUTSIDE RECORDS SUMMARY | 2025-05-20 11:56 | XMS_ITS | Encounter Summary ---
Author Organization [employer] ([place], [place], [place], [place]) Address [address] [place] [address] Care Team Providers Care Biller Name Role Phone Munir Marielos RESTREPO Primary Care Provider Encounter Details Date Type Department Care Team (Late st Contact Info) Description 04/22/2022 Transcribed Document [facility] [place] [address] [place] [address] ProviderHaroldo MD [address] [place] [address] Social History Tobacco Use Types [...] speak a language other than Libyan at [facility]? Yes 10/30/2024 Do [...] - 04/22/2022 10:02 EDT Electronically signed by [facility] Conversion Geometrician Cerner at 01/24/2023 10:25 AM CDT documented in this encounter Plan of Treatment Not on file documented as of this encounter Visit Diagnoses Not on filedocumented in this encounter Care Teams Biller Relationship Specialty Start Date End Date Marielos Amaral, SUPERVISOR LAST MODEL DEPARTMENT [address] [place] [address] PCP - General Nurse Practitioner 08/18/23 documented as of this encounter
--- OUTSIDE RECORDS SUMMARY | 2025-05-20 11:56 | XMS_ITS | Encounter Summary ---
Author Organization [employer] ([place], [place], [place], [place]) Address [address] [place] [address] Care Team Providers Care Cutter Hot Knife Name Role Phone Munir Marielos RESTREPO Primary Care Provider Encounter Details Date Type Department Care Team (Late st Contact Info) Description 04/22/2022 Transcribed Document [facility] [place] Family Medicine [address] [place] [address] ProviderHaroldo MD [address] [place] [address] Social History Tobacco Use Types [...] you speak a language other than [place] Korean at [facility]? Yes [...] head, neck, ot back pain. Jose M, supervisor painting shipyard. . History of Present Illness The patient [...] - Coronary artery bypass grafts x 4 ([id number]) on 02/10/2017 at 66 Years. Cardiac catheterization. hernia repair. Tonsillectomy. Cholecystectomy; ([id number]). Appendectomy. left arm surgery. Coronary stents. EGD - Esophagogastroduodenoscopy ([id number]). Comments: 04/12/2020 7:04 Roxana Grover RN with [...] EDT Height Source Stated Height Entry Format [place] Height/Length, [place] (ft) 5 ft Height/Length [place] 9 Inch CLINICALHEIGHT 175.26 cm [place] Body Weight 69.73 kg Weight Source, ED Critical estimated dosing weight Weight Entry Format [place] Weight South Korean lb 187 lb CLINICALWEIGHT 85 kg Body [...] % LOW Lymph # 0.74 x10(3)/uL LOW [place] % 10.0 % HI [place] # 0.76 K/uL Eos % 0.3 % Eos # 0.02 x10(3)/uL Baso % 0.3 % Baso # 0.02 x10(3)/uL Slide Review No IG# 0.07 x10(3)/uL HI IG% 0.90 % HI . Radiology results: Radiology Results (Last 48 hours) [id number] -- 04/22/2022 09:14 CR Chest 1 Vw [...] both correctly = 0. Open and close eyes/deputy sheriff k9 handler release hand: Obeys both correctly = 0. [...] nephrology. - 04/22/2022 12:27:00 , KAYLIN ARANGO MD-[facility], paged Dr. Arango. 1230: Dr Arango is not online media buyer. Call Dr. Umana. - 04/22/2022 12:32:00 , PARAM UMANA MD, phone call, Dong paged.. Plan Condition: Stable. Disposition: Admit Consults: Consult to Physician (Order): Start: 04/22/2022 12:28 EDT, Routine, Consult to: PARAM UMANA MD, For ARF, Vault Manager Notified by Physician, Group/Instructions: Pt being admitted [...] plan.. Notes: I certify that the physician nurse practitioner physicians assistant performed the services as delegated. This note has been prepared with the use of voice recognition software and may contain sound alike errors and omissions.. documented in this encounter Plan of Treatment Not on file documented as of this encounter Visit Diagnoses Not on filedocumented in this encounter Care Teams Cutter Hot Knife Relationship Specialty Start Date End Date Marielos Amaral, CHECK WRITER SALESPERSON [address] [id number] PCP - General Nurse Practitioner 08/18/23 documented as of this encounter
--- OUTSIDE RECORDS SUMMARY | 2025-05-20 11:56 | XMS_ITS | Encounter Summary ---
Author Organization [employer] ([place], [place], [place], [place]) Address [address] [place] [address] Care Team Providers Care Computer Systems Auditor Name Role Phone Munir Marielos RESTREPO Primary Care Provider Encounter Details Date Type Department Care Team (Late st Contact Info) Description 04/22/2022 Transcribed Document [facility] [place] Family Medicine [address] [place] [address] ProviderHaroldo MD [address] [place] [address] Social History Tobacco Use Types [...] speak a language other than Scottish at [facility]? Yes 10/30/2024 Do [...] head, neck, ot back pain. Jose M, contract writer. Primary Care Provider KATELYN MCKEON MD-[facility] History of Present Illness Mr. Antoine is [...] alert, and oriented, CN I-XII intact, equal glass products inspector and arm strength bilaterally without unilateral weakness [...] Diagnostic Results Radiology Results (Last 48 hours) [id number] -- 04/22/2022 12:30 CR Chest 1 Vw [...] # 0.74 x10(3)/uL (Low) 04/22/2022 09:19 EDT [place] % 10.0 % (High) 04/22/2022 09:19 EDT [place] # 0.76 K/uL 04/22/2022 09:19 EDT Eos [...] filedocumented in this encounter Care Teams Computer Systems Auditor Relationship Specialty Start Date End Date Marielos Amaral, ACADEMIC SUCCESS COORDINATOR [address] [address] PCP - General Nurse Practitioner 08/18/23 documented as of this encounter
--- OUTSIDE RECORDS SUMMARY | 2025-05-20 11:56 | XMS_ITS | Encounter Summary ---
Author Organization [employer] ([place], [place], [place], [place]) Address [address] [place] [address] Care Team Providers Care Ethanol Maintenance Mechanic Name Role Phone Marielos Amaral KAYE Primary Care Provider Encounter Details Date Type Department Care Team (Late st Contact Info) Description 02/09/2019 Transcribed Document [facility] [place] Family Medicine [address] [place] [address] ProviderHaroldo MD [address] [place] [address] Social History Tobacco Use Types Packs/Day Years [...] Plan: [employer] GOLD PLUS HMO Policy Number: [id number] Authorization Number: PENDING IP Insurance Primary Name : [employer] Choice Authorization Status-Primary : Notification only Auth/Referral Contact Name-Primary : Wenceslao Curran Authorization Number-Primary : [id number] Authorized Service Begin Date-Primary : 02/05/2019 EDT Observation Authorization Nbr-Primary : [id number] Historical Authorization Comments-Primary : Comment 1: inpt auth is pending per availity trans id# [id number] (DIONE ERY, Flour Worker 02/08/2019 09:43) Comment 2: setup case for IP on availity. faxed clinicals via cerner. (GEGE JUÁREZ RN 02/07/2019 11:56) Comment 3: setup on availity obs approved. (GEGE JUÁREZ RN 02/06/2019 08:52) Mary Haynes Rn-Utilization Review - 02/09/2019 9:06 EDT Electronically signed by Brittany [facility] Conversion Call Taker Cerner at 01/24/2023 10:44 AM CDT documented in this encounter Plan of Treatment Not on file documented as of this encounter Visit Diagnoses Not on filedocumented in this encounter Care Teams Ethanol Maintenance Mechanic Relationship Specialty Start Date End Date Marielos Amaral, PHOTOGRAPHIC EDITOR [address] [phone] PCP - General Nurse Practitioner 08/18/23 documented as of this encounter
--- OUTSIDE RECORDS SUMMARY | 2025-05-20 11:56 | XMS_ITS | Encounter Summary ---
Author Organization [employer] ([place], [place], [place], [place]) Address [address] [place] [address] Care Team Providers Care Supply Service Worker Name Role Phone Munir Marielos RESTREPO Primary Care Provider Encounter Details Date Type Department Care Team (Late st Contact Info) Description 04/22/2022 Transcribed Document [facility] [place] [address] [place] [address] ProviderHaroldo MD [address] [place] [address] Social History Tobacco Use Types [...] speak a language other than Algerian at [facility]? Yes [...] 04/22/2022 17:19 EDT Electronically signed by Brittany [facility] Conversion Plant Ecologist Cerner at 01/24/2023 10:28 AM CDT documented in this encounter Plan of Treatment Not on file documented as of this encounter Visit Diagnoses Not on filedocumented in this encounter Care Teams Supply Service Worker Relationship Specialty Start Date End Date Marielos Amaral, KAYE [address] [phone] PCP - General Nurse Practitioner 08/18/23 documented as of this encounter
--- OUTSIDE RECORDS SUMMARY | 2025-05-20 11:56 | XMS_ITS | Encounter Summary ---
Author Organization [employer] ([place], [place], [place], [place]) Address [address] [place] [address] Care Team Providers Care Safety And Health Consultant Name Role Phone Marielos Amaral AKYE Primary Care Provider Encounter Details Date Type Department Care Team (Late st Contact Info) Description 02/08/2019 Transcribed Document [facility] [place] [address] [place] [address] ProviderHaroldo MD [address] [place] [address] Social History Tobacco Use Types Packs/Day Years [...] EDT Electronically signed by Donato Soto Conversion Supplier Quality Engineering Manager Cerner at 01/24/2023 10:38 AM CDT documented in this encounter Plan of Treatment Not on file documented as of this encounter Visit Diagnoses Not on filedocumented in this encounter Care Teams Safety And Health Consultant Relationship Specialty Start Date End Date Marielos Amaral APRN [address] [address] PCP - General Nurse Practitioner 08/18/23 documented as of this encounter
--- OUTSIDE RECORDS SUMMARY | 2025-05-20 11:56 | XMS_ITS | Encounter Summary ---
Author Organization [employer] ([place], [place], [place], [place]) Address [address] [place] [address] Care Team Providers Care Art Museum Aide Name Role Phone Munir Marielos RESTREPO Primary Care Provider Encounter Details Date Type Department Care Team (Late st Contact Info) Description 04/22/2022 Transcribed Document [facility] [place] [address] [place] [address] ProviderHaroldo MD [address] [place] [address] Social History Tobacco Use Types [...] Do you speak a language other than Somali at [facility]? Yes 10/30/2024 Do [...] On: 04/22/2022 9:15 EDT by ASHLEY DING COMMUNITY BOARD MEMBER Triage Across the Room Chief Complaint : Pt presents via EMS following a syncopal episode. Reprots weakness. Hypotensive upon ED arrival. BP upon arrival was 60 systolic. Received 500mls NS. Hx of CABG and stents. Takes Eliquis. Denies head, neck, ot back pain. 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 Triage Date/Time : 04/22/2022 9:15 EDT ASHLEY DING RN - 04/22/2022 9:15 EDT DCP GENERIC CODE Tracking Acuity : 2 - Emergent Tracking Group : [facility] ED ASHLEY DING RN - 04/22/2022 9:15 EDT Mode of Arrival : Stretcher Transported to ED by : Ambulance/ALS EMS Service : [facility] To Room Via : Stretcher Accompanied [...] Problems(Active) Acute cerebrovascular accident (CVA) (SNOMED CT :029549457 ) Name of Problem: Acute cerebrovascular accident (CVA) ; Recorder: Roxana Brady RN; Confirmation: Confirmed ; Classification: Medical ; Code: [id number] ; Contributor System: [email or web address] ; Last Updated: 04/12/2020 7:03 EDT ; Life Cycle Date: 04/12/2020 ; Life Cycle Status: Active ; Vocabulary: SNOMED CT Angina (SNOMED CT :570755221 ) Name of Problem: Angina ; Recorder: RAVEN REILLY RN; Confirmation: Confirmed ; Classification: Patient Stated ; Code: 546985045 ; Contributor System: PowerChart ; Last Updated: 07/20/2014 9:33 EDT ; Life Cycle Date: 07/20/2014 ; Life Cycle Status: Active ; Vocabulary: SNOMED CT Atrial fibrillation (SNOMED CT :16069011 ) Name of Problem: Atrial fibrillation ; Recorder: MARIO SRIVASTAVA RN; Confirmation: Confirmed ; Classification: Medical ; Code: 35982847 ; Contributor System: PowerChart ; Last Updated: 12/11/2020 13:21 EST ; Life Cycle Status: Active ; Vocabulary: SNOMED CT CAD - Coronary artery disease (SNOMED CT :5815804790 ) Name of Problem: CAD - Coronary artery disease ; Recorder: MARIO SRIVASTAVA RN; Confirmation: Confirmed ; Classification: Medical ; Code: 4784208754 ; Contributor System: PowerChart ; Last Updated: 12/11/2020 13:20 EST ; Life Cycle Status: Active ; Vocabulary: SNOMED CT Cardiomyopathy (SNOMED CT :993244011 ) Name of Problem: Cardiomyopathy ; Recorder: MARIO SRIVASTAVA RN; Confirmation: Confirmed ; Classification: Medical ; Code: 697785886 ; Contributor System: PowerChart ; Last Updated: 12/11/2020 13:20 EST ; Life Cycle Status: Active ; Vocabulary: SNOMED CT Coronary artery disease (SNOMED CT :8831202443 ) Name of Problem: Coronary artery disease ; Recorder: RAVEN REILLY RN; Confirmation: Confirmed ; Classification: Patient Stated ; Code: 4069673839 ; Contributor System: PowerChart ; Last Updated: 07/20/2014 9:33 EDT ; Life Cycle Date: 07/20/2014 ; Life Cycle Status: Active ; Vocabulary: SNOMED CT Diabetes mellitus type II (SNOMED CT :78145253 ) Name of Problem: Diabetes mellitus type II ; Recorder: RAVEN REILLY RN; Confirmation: Confirmed ; Classification: Patient Stated ; Code: 75132843 ; Contributor System: PowerChart ; Last Updated: 07/20/2014 9:35 EDT ; Life Cycle Date: 07/20/2014 ; Life Cycle Status: Active ; Vocabulary: SNOMED CT Enlarged prostate (SNOMED CT :759403121 ) Name of Problem: Enlarged prostate ; Recorder: RAVEN REILLY RN; Confirmation: Confirmed ; Classification: Patient Stated ; Code: 482910130 ; Contributor System: PowerChart ; Last Updated: 07/20/2014 9:34 EDT ; Life Cycle Date: 07/20/2014 ; Life Cycle Status: Active ; Vocabulary: SNOMED CT GERD - Gastro-esophageal reflux disease (SNOMED CT :5819149187 ) Name of Problem: GERD - Gastro-esophageal reflux disease ; Recorder: RAVEN REILLY RN; Confirmation: Confirmed ; Classification: Patient Stated ; Code: 0825587113 ; Contributor System: PowerChart ; Last Updated: 07/20/2014 9:34 EDT ; Life Cycle Date: 07/20/2014 ; Life Cycle Status: Active ; Vocabulary: SNOMED CT Heart failure (SNOMED CT :391909637 ) Name of Problem: Heart failure ; Recorder: RAVEN REILLY RN; Confirmation: Confirmed ; Classification: Patient Stated ; Code: 745244175 ; Contributor System: PowerChart ; Last Updated: 07/20/2014 9:33 EDT ; Life Cycle Date: 07/20/2014 ; Life Cycle Status: Active ; Vocabulary: SNOMED CT Heart murmur (SNOMED CT :957687263 ) Name of Problem: Heart murmur ; Recorder: RAVEN REILLY RN; Confirmation: Confirmed ; Classification: Patient Stated ; Code: 662890866 ; Contributor System: PowerChart ; Last Updated: 07/20/2014 9:33 EDT ; Life Cycle Date: 07/20/2014 ; Life Cycle Status: Active ; Vocabulary: SNOMED CT History of obstructive sleep apnea (IMO :00145890 ) Name of Problem: History of obstructive sleep apnea ; Recorder: SYSTEM, SYSTEM; Confirmation: Confirmed ; Classification: Medical ; Code: 89339495 ; Last Updated: 01/20/2019 12:39 EDT ; Life Cycle Date: 01/20/2019 ; Life Cycle Status: Active ; Vocabulary: IMO HLD - Hyperlipidemia (SNOMED CT :457090063 ) Name of Problem: HLD - Hyperlipidemia ; Recorder: MARIO SRIVASTAVA RN; Confirmation: Confirmed ; Classification: Medical ; Code: 633069440 ; Contributor System: PowerChart ; Last Updated: 12/11/2020 13:20 EST ; Life Cycle Status: Active ; Vocabulary: SNOMED CT HTN - Hypertension (SNOMED CT :1885080236 ) Name of Problem: HTN - Hypertension ; Recorder: MARIO SRIVASTAVA RN; Confirmation: Confirmed ; Classification: Medical ; Code: 4956844926 ; Contributor System: PowerChart ; Last Updated: 12/11/2020 13:20 EST ; Life Cycle Status: Active ; Vocabulary: SNOMED CT Hyperlipidemia (SNOMED CT :89035516 ) Name of Problem: Hyperlipidemia ; Recorder: RAVEN REILLY RN; Confirmation: Confirmed ; Classification: Patient Stated ; Code: 10880230 ; Contributor System: PowerChart ; Last Updated: 09/03/2017 13:38 EST ; Life Cycle Date: 07/20/2014 ; Life Cycle Status: Active ; Vocabulary: SNOMED CT Hypertension (SNOMED CT :91266292 ) Name of Problem: Hypertension ; Recorder: RAVEN REILLY RN; Confirmation: Confirmed ; Classification: Patient Stated ; Code: 85277640 ; Contributor System: PowerChart ; Last Updated: 07/20/2014 9:33 EDT ; Life Cycle Date: 07/20/2014 ; Life Cycle Status: Active ; Vocabulary: SNOMED CT Impaired vision (SNOMED CT :00746684 ) Name of Problem: Impaired vision ; Recorder: RAVEN REILLY RN; Confirmation: Confirmed ; Classification: Patient Stated ; Code: 62042916 ; Contributor System: [email or web address] ; Last Updated: 07/20/2014 9:32 EDT ; Life Cycle Date: 07/20/2014 ; Life Cycle Status: Active ; Vocabulary: SNOMED CT Migraine (SNOMED CT :41964472 ) Name of Problem: Migraine ; Recorder: RAVEN REILLY RN; Confirmation: Confirmed ; Classification: Patient Stated ; Code: 06095791 ; Contributor System: PowerChart ; Last Updated: 07/20/2014 9:35 EDT ; Life Cycle Date: 07/20/2014 ; Life Cycle Status: Active ; Vocabulary: SNOMED CT Stented coronary artery (SNOMED CT :7243807172 ) Name of Problem: Stented coronary artery ; Recorder: RAVEN REILLY RN; Confirmation: Confirmed ; Classification: Patient Stated ; Code: 1302221848 ; Contributor System: [employer] ; Last Updated: 07/20/2014 9:33 EDT ; Life Cycle Date: 07/20/2014 ; Life Cycle Status: Active ; Vocabulary: SNOMED CT Type 2 diabetes mellitus (SNOMED CT :655367408 ) Name of Problem: Type 2 diabetes mellitus ; Recorder: MARIO SRIVASTAVA RN; Confirmation: Confirmed ; Classification: Medical ; Code: 908313308 ; Contributor System: PowerChart ; Last Updated: 12/11/2020 13:20 EST ; Life Cycle Status: Active ; Vocabulary: SNOMED CT Diagnoses(Active) Syncope/Near syncope Date: 04/22/2022 ; Diagnosis Type: Reason For Visit ; Confirmation: Complaint of ; Clinical Dx: Syncope/Near syncope ; Classification: Medical ; Clinical Service: Emergency medicine ; Code: PNED ; Probability: 0 ; Diagnosis Code: [id number] ED Height and Weight Height Source : Stated Height Entry Format : Nolan Height, Feet : 5 ft(Converted to: 152 cm, 60 Inch) Height, Inches : 9 Inch(Converted to: 0 ft 9 Inch, 22.86 cm) Clinical Height : 175.26 cm Weight Source, ED : Critical estimated dosing weight Weight Entry Format : Nolan Weight, Pounds : 187 lb Clinical Dosing Weight : 85 kg Body Surface Area (BSA) : 2.01 m2 Body Mass Index : 27.7 kg/m2 (HI) [place] Body Weight (IBW) : 69.73 kg ASHLEY DING RN - 04/22/2022 9:15 EDT documented in this encounter Plan of Treatment Not on file documented as of this encounter Visit Diagnoses Not on filedocumented in this encounter Care Teams Art Museum Aide Relationship Specialty Start Date End Date Marielos Amaral APRN [address] [address] PCP - General Nurse Practitioner 08/18/23 documented as of this encounter
--- OUTSIDE RECORDS SUMMARY | 2025-05-20 11:56 | XMS_ITS | Encounter Summary ---
Author Organization [employer] ([place], [place], [place], [place]) Address [address] [place] [address] Care Team Providers Care Geospatial Applications Developer Name Role Phone Marielos Amaral APRN Primary Care Provider Encounter Details Date Type Department Care Team (Late st Contact Info) Description 02/09/2019 Transcribed Document [facility] [address] [id number] Fidencio Tolliver MD [address] [place] [address] [address] [place] [address] Social History Tobacco Use Types Packs/Day Years [...] risk factors. CODE STATUS: Full code CONSULTS: [facility] cardiology WORKUP / PROCEDURES: CT [...] approximately 50% stenosis of theproximal basilar artery. intervention teacher show mild stenosis proximally. IMPRESSION: 1. 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 Anterior circulation intact.3. Mild bilateral GHOST WRITER disease. This study was performed using dose [...] with the patient, and nursing staff and home health care case manager today. Health Status Allergies: Allergic Reactions (Selected) Severity Not Documented Amoxicillin- No reactions were documented. Mucinex- No reactions were documented. Current medications: (Selected) Inpatient Medications Ordered Colace: 100 mg, Oral, BID Eliquis: 5 mg, Oral, [id number] Flomax: 0.4 mg, Oral, Daily MiraLax: 17 [...] tablet 5 mg = 1 Tab, Oral, [id number] - new per cardiology and neurology. Flomax [...] on filedocumented in this encounter Care Teams Geospatial Applications Developer Relationship Specialty Start Date End Date Marielos Amaral APRN [address] [address] PCP - General Nurse Practitioner 08/18/23 documented as of this encounter
--- OUTSIDE RECORDS SUMMARY | 2025-05-20 11:56 | XMS_ITS | Encounter Summary ---
Author Organization [employer] ([place], [place], [place], [place]) Address [address] [place] [address] Care Team Providers Care Demonstrator Sewing Techniques Name Role Phone Munir Marielos RESTREPO Primary Care Provider Encounter Details Date Type Department Care Team (Late st Contact Info) Description 04/22/2022 Transcribed Document [facility] [place] Family Medicine [address] [place] [address] ProviderHaroldo MD [address] [place] [address] Social History Tobacco Use Types [...] Do you speak a language other than Sudanese at [facility]? Yes 10/30/2024 Do you [...] Renal ultrasound - No emergent need of CAMP COOK. Will follow. Thank you very much for the consult. Will follow along. [id number] Electronically signed by Brittany [facility] Conversion Glass Grinder Pennyner at 01/24/2023 10:25 AM CDT documented in this encounter Plan of Treatment Not on file documented as of this encounter Visit Diagnoses Not on filedocumented in this encounter Care Teams Demonstrator Sewing Techniques Relationship Specialty Start Date End Date Marielos Amaral, PROCEDURES NURSE [address] [address] PCP - General Nurse Practitioner 08/18/23 documented as of this encounter
--- OUTSIDE RECORDS SUMMARY | 2025-05-20 11:56 | XMS_ITS | Encounter Summary ---
Author Organization [employer] ([place], [place], [place], [place]) Address [address] [place] [address] Care Team Providers Care Practice Professional Name Role Phone Marielos Amaral KAYE Primary Care Provider Encounter Details Date Type Department Care Team (Late st Contact Info) Description 02/09/2019 Transcribed Document [facility] [place] Family Medicine [address] [place] [address] ProviderHaroldo MD [address] [place] [address] Social History Tobacco Use Types Packs/Day Years Used Date Smoking Tobacco: Never Assessed Sex and Gender Information Value Date Recorded Sex Assigned at Not on file Legal Sex Male 3:45 PM CDT Gender Identity Not on file Sexual Orientation Not on file documented as of this encounter Miscellaneous Notes * [employer]ner Conversion Note - Haroldo ProviderMD - 02/09/2019 2:00 AM CDT Architecture Manager Details Entered On: 02/09/2019 3:10 EDT Performed [...] on filedocumented in this encounter Care Teams Practice Professional Relationship Specialty Start Date End Date Marielos Amaral, SQUEAK RATTLE AND LEAK REPAIRER [address] [phone] PCP - General Nurse Practitioner 08/18/23 documented as of this encounter
--- OUTSIDE RECORDS SUMMARY | 2025-05-20 11:56 | XMS_ITS | Encounter Summary ---
Author Organization [employer] ([place], [place], [place], [place]) Address [address] [place] [address] Care Team Providers Care Secondary School Principal Name Role Phone Munir Marielos RESTREPO Primary Care Provider Encounter Details Date Type Department Care Team (Late st Contact Info) Description 04/22/2022 Transcribed Document [facility] [place] [address] [place] [address] ProviderHaroldo MD [address] [place] [address] Social History Tobacco Use Types [...] than Citizen Of [place] at [facility]? Yes 10/30/2024 Do [...] 04/22/2022 11:13 EDT Electronically signed by Brittany [facility] Conversion Printing Grey Cloth Tender Cerner at 01/24/2023 10:31 AM CDT documented in this encounter Plan of Treatment Not on file documented as of this encounter Visit Diagnoses Not on filedocumented in this encounter Care Teams Secondary School Principal Relationship Specialty Start Date End Date Marielos Amaral, ASSEMBLER TRACTOR [address] [address] PCP - General Nurse Practitioner 08/18/23 documented as of this encounter
--- OUTSIDE RECORDS SUMMARY | 2025-05-20 11:56 | XMS_ITS | Encounter Summary ---
Author Organization [employer] ([place], [place], [place], [place]) Address [address] [place] [address] Care Team Providers Care Pastoral Ministries Professor Name Role Phone Munir Marielos RESTREPO Primary Care Provider [phone] Encounter Details Date Type Department Care Team (Late st Contact Info) Description 04/22/2022 Transcribed Document [facility] [place] [address] [place] [address] ProviderHaroldo MD [address] [place] [address] Social History Tobacco Use Types [...] Do you speak a language other than Uzbek at [facility]? Yes 10/30/2024 Do [...] Unaccompanied Legal Guardian : No Support Person/Patient Electrical Lineworker : Yes Support Person/Pt Rep Name : Enriqueta - Contact Password : peanut Support Person/Pt Rep Contact Information : [phone], cell Want Family/Rep/Phys Notified of Admit : [...] head, neck, ot back pain. 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 Information Obtained From : Patient Primary Language : Uzbek Preferred Communication Mode : Verbal Communication Barrier : None Roading Engineer Needed : No Umer John Rn Flex [...] Level : 46 or > High Risk [place] Fall Interventions : Adequate lighting, Assistive devices [...] Source : Stated Height Entry Format : [place] Height, Feet : 5 ft(Converted to: 152 cm, 60 Inch) Height, Inches : 9 Inch(Converted to: 0 ft 9 Inch, 22.86 cm) Clinical Height : 175.26 cm Weight Source : Bed scale Weight Entry Format : [place] Clinical Dosing Weight : 85 kg Weight, Pounds : 187 lb Body Surface Area (BSA) : 2.01 m2 Body Mass Index : 27.7 kg/m2 (HI) [place] Body Weight : 70 kg Umer John [...] John Rn Flex - 04/22/2022 22:36 EDT [facility] Suicide Severity Rating Scale (C-SSRS) CSSRS Past [...] on filedocumented in this encounter Care Teams Pastoral Ministries Professor Relationship Specialty Start Date End Date Marielos Amaral APRN [address] [phone] PCP - General Nurse Practitioner 08/18/23 documented as of this encounter
--- OUTSIDE RECORDS SUMMARY | 2025-05-20 11:56 | XMS_ITS | Encounter Summary ---
Author Organization [employer] ([place], [place], [place], [place]) Address [address] [place] [address] Care Team Providers Care Pumpman Name Role Phone Marielos Amaral KAYE Primary Care Provider Encounter Details Date Type Department Care Team (Late st Contact Info) Description 02/09/2019 Transcribed Document [facility] [place] Family [place] [address] [place] [address] ProviderHaroldo MD [address] [place] [address] Social History Tobacco Use Types Packs/Day Years [...] 02/09/2019 4:50 EDT Electronically signed by Brittany [facility] Conversion Procedure Manager Cerner at 01/24/2023 10:29 AM CDT documented in this encounter Plan of Treatment Not on file documented as of this encounter Visit Diagnoses Not on filedocumented in this encounter Care Teams Pumpman Relationship Specialty Start Date End Date Rosette Amarale, JUNIOR BOOKKEEPER [address] [place] [address] PCP - General Nurse Practitioner 08/18/23 documented as of this encounter
--- OUTSIDE RECORDS SUMMARY | 2025-05-20 11:56 | XMS_ITS | Encounter Summary ---
Author Organization [employer] ([place], [place], [place], [place]) Address [address] [place] [address] Care Team Providers Care Exhibitions Curator Name Role Phone Marielos Amaral KAYE Primary Care Provider Encounter Details Date Type Department Care Team (Late st Contact Info) Description 02/09/2019 Transcribed Document [facility] [place] Family Medicine [address] [place] [address] ProviderHaroldo MD [address] [place] [address] Social History Tobacco Use Types Packs/Day Years [...] On: 02/09/2019 15:14 EDT by Melany Velasquez Labview Programmer Discharge Summary Discharge Summary Provider Notified : Nursing, Physical Therapy Reason for Discharge : Discharge order Discharged to, Therapy : Outpatient rehabilitation Melany Velasquez [employer]view Programmer - 02/09/2019 15:14 EDT Discharge Summary Comment, PT : pt has discharge orders in from hospital to home with outpatient rehab, per last PTx - pt compeletely independent for bed mobility and transfers, pt ambulated 100' x 2 with supervision and no AD, pt ascended/descended 10 stairs with supervision. PT has reviewed and agrees with note. JACQUELYN KIM, PT - 02/09/2019 15:48 EDT Drilling Contractor Goals Mobility/Bed Mobility LTG PT Grid Goal #1 Goal #2 Activity : Supine to sit Sit to stand Assist : Independent, complete Independent, complete Date to Meet : 02/20/2019 EDT 02/20/2019 EDT Goal Status : Goal met Goal met Date Met : 02/07/2019 EDT 02/07/2019 EDT Comment : HOB flat Melany Velasquez [employer]view Programmer - 02/09/2019 15:14 EDT Melany Velasquez [employer]view Programmer - 02/09/2019 15:14 EDT Ambulation LTG Grid Goal #1 Device : Other: no AD vs SPC Distance : 300 ft Assist : Independent, modified Date to Meet : 02/20/2019 EDT Goal Status : Goal met Date Met : 10/06/2018 EST Melany Velasquez [employer]view Programmer - 02/09/2019 15:14 EDT Stairs LTG Grid Goal #1 Device : None Number of Steps : 4 Handrail(s) : One handrail Assist : Independent, modified Date to Meet : 02/21/2019 EDT Goal Status : Not met Melany Velasquez [employer]view Programmer - 02/09/2019 15:14 EDT documented in this encounter Plan of Treatment Not on file documented as of this encounter Visit Diagnoses Not on filedocumented in this encounter Care Teams Exhibitions Curator Relationship Specialty Start Date End Date Marielos Amaral, KAYE [address] [address] PCP - General Nurse Practitioner 08/18/23 documented as of this encounter
--- OUTSIDE RECORDS SUMMARY | 2025-05-20 11:56 | XMS_ITS | Encounter Summary ---
Author Organization [employer] ([place], [place], [place], [place]) Address [address] [place] [address] Care Team Providers Care Pneudraulic Systems Mechanic Name Role Phone Marielos Amaral KAYE Primary Care Provider Encounter Details Date Type Department Care Team (Late st Contact Info) Description 02/09/2019 Transcribed Document [facility] [place] [address] [place] [address] ProviderHaroldo MD [address] [place] [address] Social History Tobacco Use Types Packs/Day Years [...] EDT Electronically signed by Renetta Soto Conversion Power And Recovery Shift Engineer Pennyner at 01/24/2023 10:34 AM CDT documented in this encounter Plan of Treatment Not on file documented as of this encounter Visit Diagnoses Not on filedocumented in this encounter Care Teams Pneudraulic Systems Mechanic Relationship Specialty Start Date End Date Marielos Amaral, PIANO AND ORGAN REFINISHER [address] [place] [address] PCP - General Nurse Practitioner 08/18/23 documented as of this encounter
--- OUTSIDE RECORDS SUMMARY | 2025-05-20 11:56 | XMS_ITS | Encounter Summary ---
Author Organization [employer] ([place], [place], [place], [place]) Address [address] [place] [address] Care Team Providers Care Drawer Upfitter Name Role Phone Marielos Amaral APRN Primary Care Provider Encounter Details Date Type Department Care Team (Late st Contact Info) Description 02/08/2019 Transcribed Document [facility] Radiology [address] [id number] Fidencio Tolliver MD [address] [place] [address] [address] [place] [address] Social History Tobacco Use Types Packs/Day Years [...] risk factors. CODE STATUS: Full code CONSULTS: [facility] cardiology WORKUP / PROCEDURES: CT Head [...] approximately 50% stenosis of theproximal basilar artery. photonics engineer show mild stenosis proximally. IMPRESSION: 1. 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 Anterior circulation intact.3. Mild bilateral HOSPICE CASE MANAGER disease. This study was performed using [...] mg, Oral, BID Eliquis: 5 mg, Oral, [id number] Flomax: 0.4 mg, Oral, Daily MiraLax: 17 [...] Results Review Radiology Results (Last 48 hours) [id number] -- 02/07/2019 11:53 MRI Brain WO (02/06/2019 [...] initiated. DC planning discussed with patient and bilingual patient support caseworker, he shouldn't is looking for possible rehabilitation placement. documented in this encounter Plan of Treatment Not on file documented as of this encounter Visit Diagnoses Not on filedocumented in this encounter Care Teams Drawer Upfitter Relationship Specialty Start Date End Date Marielos Amaral, KAYE [address] [place] [address] PCP - General Nurse Practitioner 08/18/23 documented as of this encounter
--- OUTSIDE RECORDS SUMMARY | 2025-05-20 11:56 | XMS_ITS | Encounter Summary ---
Author Organization [employer] ([place], [place], [place], [place]) Address [address] [place] [address] Care Team Providers Care Bunk House Worker Name Role Phone Marielos Amaral APRN Primary Care Provider Encounter Details Date Type Department Care Team (Late st Contact Info) Description 02/09/2019 Transcribed Document [facility] [place] Family Medicine [address] [place] [address] ProviderHaroldo MD [address] [place] [address] Social History Tobacco Use Types Packs/Day Years Used Date Smoking Tobacco: Never Assessed Sex and Gender Information Value Date Recorded Sex Assigned at Not on file Legal Sex Male 3:45 PM CDT Gender Identity Not on file Sexual Orientation Not on file documented as of this encounter Miscellaneous Notes * Cerner Conversion Note - Haroldo ProviderMD - 02/09/2019 2:17 PM CDT [facility] [address] [place] [place] [id number] DEION ANTOINE :1950 Visit Time:02/07/2019 Your Visit [...] therapy at [facility] phone [phone] Discharge Follow Up Instructions: Follow-Up Appointments Follow Up with YANICK WHEELER When Within 2 to 3 days Where: [address] [place], [place] [id number] [facility] (1) Medications What How Much When Instructions [...] these instructions at home: Medicines ??? Take dujs-adf-knplits and prescription medicines only as told by [...] 09/22/2006 Document Revised: 03/04/2017 Document Reviewed: 12/18/2016 [employer] Patient Education ?? 2017 [employer]. Weakness Weakness is a lack of [...] 09/04/2009 Document Revised: 03/23/2013 Document Reviewed: 07/12/2016 [employer] Patient Education ?? 2017 [employer]. amiodarone (oral) (A mi [place] john sen) [...] may report side effects to FDA at 9-723-QUQ-0574. What other drugs will affect amiodarone? Sometimes [...] can affect amiodarone. This includes prescription and sctc-iwg-sfbonpr medicines, vitamins, and herbal products. Not all [...] to ensure that the information provided by [employer]. ('Multum') is accurate, up-to-date, and complete, but no guarantee is made to that effect. Drug information contained herein may be time sensitive. AmVac information has been compiled for use by healthcare practitioners and consumers in the [place] and therefore AmVac does not warrant that uses outside of the [place] are appropriate, unless specifically indicated otherwise. Erlys drug information does not endorse drugs, diagnose patients or recommend therapy. Erlys drug information is an informational resource designed [...] effective or appropriate for any given patient. [employer] does not assume any responsibility for any aspect of healthcare administered with the aid of information [facility] provides. The information contained herein is not intended to cover all possible uses, directions, precautions, warnings, drug interactions, allergic reactions, or adverse effects. If you have questions about the drugs you are taking, check with your doctor, nurse or pharmacist. Copyright 9631-4165 [employer]. Version: 7.01. Revision Date: 08/11/2018.apixaban (a PIX [...] may report side effects to FDA at 3-683-TTX-4977. What other drugs will affect apixaban? Sometimes it is not safe to use certain medications at the same time. Some drugs can affect your blood levels of other drugs you take, which may increase side effects or make the medications less effective. Many other drugs (including some ltub-eov-blefcat medicines) can increase your risk of bleeding [...] ?? an NSAID (nonsteroidal anti-inflammatory drug) used manager intermediate. This list is not complete and many other drugs may affect apixaban. This includes prescription and hbjb-oia-soljwzk medicines, vitamins, and herbal products. Not all [...] to ensure that the information provided by [employer]. ('Multum') is accurate, up-to-date, and complete, but no guarantee is made to that effect. Drug information contained herein may be time sensitive. AmVac information has been compiled for use by healthcare practitioners and consumers in the [place] and therefore AmVac does not warrant that uses outside of the [place] are appropriate, unless specifically indicated otherwise. AmVac's drug information does not endorse drugs, diagnose patients or recommend therapy. Erlys drug information is an informational resource designed [...] effective or appropriate for any given patient. AmVac does not assume any responsibility for any aspect of healthcare administered with the aid of information Am[employer]ac provides. The information contained herein is not intended to cover all possible uses, directions, precautions, warnings, drug interactions, allergic reactions, or adverse effects. If you have questions about the drugs you are taking, check with your doctor, nurse or pharmacist. Copyright 4202-7630 [employer]. Version: 3.01. Revision Date: 02/11/2018. Emergency Awareness [...] Assistance with quitting is available by contacting 0-204-EGZHNOW. This is a free resource providing counseling, [...] Be sure to sign up for the [facility] patient portal, which gives you 28/04 access to your medical information ??? including these discharge instructions ??? using your computer, smartphone, or tablet. Just go to Babble to get started. Questions? Call . Test [...] ANC #: 5 K/uL Toxic Granulation: 1+ Gordon Percent Man: 8 % -- Normal range [...] range between ( 0.0 and 7.0 ) Gordon #: 0.99 K/uL -- Normal range between ( 0.16 and 1.00 ) Eos #: 0.12 x10(3)/uL -- Normal range between ( 0.00 and 0.80 ) Gordon %: 8.7 % -- Normal range between [...] ) Urine Bilirubin Dipstick: Negative Urine Specific Bohannon: 1.016 -- Normal range between ( 1.005 [...] was given the opportunity to ask questions. Patient/Department Secretary Name: Patient/Department Secretary Signature: Relationship to Patient: Clinician/Hospital Department Secretary Signature: Date: Electronically signed by Brittany, [facility] Conversion Marine Electronics Technician Cerner at 01/24/2023 10:27 AM CDT documented in this encounter Plan of Treatment Not on file documented as of this encounter Visit Diagnoses Not on filedocumented in this encounter Care Teams Bunk House Worker Relationship Specialty Start Date End Date Marielos Amaral, FINANCIAL REPORTING SPECIALIST [address] [phone] PCP - General Nurse Practitioner 08/18/23 documented as of this encounter
--- OUTSIDE RECORDS SUMMARY | 2025-05-20 11:56 | XMS_ITS | Encounter Summary ---
Author Organization [employer] ([place], [place], [place], [place]) Address [address] [place] [address] Care Team Providers Care Money Manager Name Role Phone Marielos Amaral KAYE Primary Care Provider Encounter Details Date Type Department Care Team (Late st Contact Info) Description 02/09/2019 Transcribed Document [facility] [place] Family Medicine [address] [place] [address] ProviderHaroldo MD [address] [place] [address] Social History Tobacco Use Types Packs/Day Years [...] Plan: [employer] GOLD PLUS HMO Policy Number: [id number] Authorization Number: PENDING IP Insurance Primary Name : [employer] Choice Authorization Status-Primary : Notification only Auth/Referral Contact Name-Primary : Wenceslao Curran Authorization Number-Primary : [id number] Authorized Service Begin Date-Primary : 02/05/2019 EDT Observation Authorization Nbr-Primary : [id number] submitted for inpatient Historical Authorization Comments-Primary : Comment 1: inpt auth is pending per [employer]ity trans id# [id number] (DIONE REY, Hand Violin Maker 02/08/2019 09:43) Comment 2: setup case for IP on [employer]ity. faxed clinicals via cerner. (GEGE JUÁREZ RN 02/07/2019 11:56) Comment 3: setup on availity obs approved. (GEGE JUÁREZ RN 02/06/2019 08:52) Mary Haynes Rn-Utilization Review - 02/09/2019 9:09 EDT Electronically signed by Renetta Soto Conversion Director Of Operations For Therapy Cerner at 01/24/2023 10:34 AM CDT documented in this encounter Plan of Treatment Not on file documented as of this encounter Visit Diagnoses Not on filedocumented in this encounter Care Teams Money Manager Relationship Specialty Start Date End Date Marielos Amaral, ASSISTED LIVING ADMINISTRATOR [address] [phone] PCP - General Nurse Practitioner 08/18/23 documented as of this encounter
--- OUTSIDE RECORDS SUMMARY | 2025-05-20 11:56 | XMS_ITS | Encounter Summary ---
Author Organization [employer] ([place], [place], [place], [place]) Address [address] [place] [address] Care Team Providers Care Insurance Claim Auditor Name Role Phone Munir Marielos RESTREPO Primary Care Provider Encounter Details Date Type Department Care Team (Late st Contact Info) Description 04/22/[address] [facility] [place] Family Medicine [address] [place] [address] ProviderHaroldo MD [address] [place] [address] Social History Tobacco Use Types [...] Do you speak a language other than Indonesian at [facility]? Yes 10/30/2024 Do you want help with [...] TOVA LOPEZ, RAMONA General Information Visit Type, MEDIUM CYCLE SALESPERSON : Initial evaluation Patient Orders : Speech Language Pathology Evaluation and Treatment -111 Start: 04/22/22 14:23:00 EDT, Routine, For Speech Language Cognitive Eval and Treat - ASHLEY GALARZA PA Speech Language Pathology Swallow Evaluation and Treatment - Start: 04/22/22 13:17:00 EDT, Routine, For Swallow Eval and Treat -111 ASHLEY GALARZA PA Admission Date : Admission Date/Time: 04/22/22 12:30:00 Medical Chart Reviewed, MEDIUM CYCLE SALESPERSON : Yes Personal Devices : Personal Devices [...] collapse 04/22/2022 12:00 Syncope/Near syncope Therapy Diagnosis, MEDIUM CYCLE SALESPERSON : Pt presents without overt oropharyngeal patterns. [...] During Current Admission : NPO Intubation Comment, MEDIUM CYCLE SALESPERSON : n/a Vital Signs RTF : Vitals [...] 14:25 EDT General Status Patient Received Status, MEDIUM CYCLE SALESPERSON : Supine in bed Treatment Start Time, MEDIUM CYCLE SALESPERSON : 04/22/2022 14:12 EDT Patient Left Status, MEDIUM CYCLE SALESPERSON : Long sitting in bed RN/PCT Informed Comment, MEDIUM CYCLE SALESPERSON : [id number] (5 minutes) Treatment End Time, MEDIUM CYCLE SALESPERSON : 04/22/2022 14:25 EDT Treatment Time, MEDIUM CYCLE SALESPERSON : 13 Minute(s) TOVA LOPEZ SLP - [...] Oral Mechanism for Daily Living : Intact MEDIUM CYCLE SALESPERSON Cough : Strong Facial Appearance: : Symmetrical [...] Afib, DM, GERD, SEFERINO, HLD, and HTN. MEDIUM CYCLE SALESPERSON consulted for bedside dysphagia evaluation. Today, pt [...] this time. Diet orders have been placed. MEDIUM CYCLE SALESPERSON will follow up w/ a definitive neuro [...] - 04/22/2022 14:25 EDT Therapy Indication Assessment MEDIUM CYCLE SALESPERSON Indicated : No MEDIUM CYCLE SALESPERSON Not Indicated : At prior level of function MEDIUM CYCLE SALESPERSON Interdisciplinary Consultation Needs : No MEDIUM CYCLE SALESPERSON Rehabilitation Potential : At prior level of function TOVA LOPEZ SLP - 04/22/2022 14:25 EDT Education Barriers To Learning : None evident Individuals Taught : Patient, Spouse Readiness to Learn : Cooperative Readiness to Learn : Explanation Education Comment : n/a TOVA LOPEZ SLP - 04/22/2022 14:25 EDT MEDIUM CYCLE SALESPERSON Education Assessment Grid 1 Diet Recommendation : Verbalizes understanding Evaluation Results : Verbalizes understanding TOVA LOPEZ SLP - 04/22/2022 14:[address] [facility] MEDIUM CYCLE SALESPERSON Charges Evaluation Swallowing Function : 1 TOVA LOPEZ SLP - 04/22/2022 14:25 EDT Anticipated Discharge Needs, MEDIUM CYCLE SALESPERSON Anticipated Discharge to : Home, independently Recommend Continued Therapy at Discharge : No TOVA LOPEZ SLP - 04/22/2022 14:25 EDT Electronically signed by Brittany [facility] Conversion Rn Birthing Cerner at 01/24/2023 10:34 AM CDT documented in this encounter Plan of Treatment Not on file documented as of this encounter Visit Diagnoses Not on filedocumented in this encounter Care Teams Insurance Claim Auditor Relationship Specialty Start Date End Date Marielos Amaral, KAYE [address] [phone] PCP - General Nurse Practitioner 08/18/23 documented as of this encounter
--- OUTSIDE RECORDS SUMMARY | 2025-05-20 11:57 | XMS_ITS | Encounter Summary ---
Author Organization [employer] ([place], [place], [place], [place]) Address [address] [place] [address] Care Team Providers Care Belt Picker Name Role Phone Munir Marielos RESTREPO Primary Care Provider Encounter Details Date Type Department Care Team (Late st Contact Info) Description 04/22/2022 Transcribed Document [facility] [place] Family Medicine [address] [place] [address] ProviderHaroldo MD [address] [place] [address] Social History Tobacco Use Types [...] speak a language other than Turkish at [facility]? Yes 10/30/2024 [...] filedocumented in this encounter Care Teams Belt Picker Relationship Specialty Start Date End Date Marielos Amaral, HAND LENS POLISHER [address] [place] [address] PCP - General Nurse Practitioner 08/18/23 documented as of this encounter
--- OUTSIDE RECORDS SUMMARY | 2025-05-20 11:57 | XMS_ITS | Encounter Summary ---
Author Organization [employer] ([place], [place], [place], [place]) Address [address] [place] [address] Care Team Providers Care City Carrier Assistant Name Role Phone Marielos Amaral APRN Primary Care Provider [phone] Encounter Details Date Type Department Care Team (Late st Contact Info) Description 12/12/2020 Transcribed Document [facility] Cardiology [address] [place] [address] [place] [address] [place] [address] [address] [place] [address] Social History Tobacco Use Types Packs/Day Years [...] None Author: MARIAM SALGUERO MD-CAR Basic Information Research And Development Technician: Mariam Salguero Chief Complaint Abnormal stress History [...] Refill(s) Problem list: All Problems Angina / [id number] / Confirmed Acute cerebrovascular accident (CVA) / 298171603 / Confirmed Coronary artery disease / 9562075862 / Confirmed Diabetes mellitus type II / 70176423 / Confirmed GERD - Gastro-esophageal reflux disease / 2275525021 / Confirmed Heart failure / 512067236 / Confirmed Heart murmur / 158023936 / Confirmed History of obstructive sleep apnea / 20651040 / Confirmed Hyperlipidemia / 29419187 / Confirmed Hypertension / 39211856 / Confirmed Impaired vision / 76336934 / Confirmed Enlarged prostate / 132476206 / Confirmed Migraine / 09096253 / Confirmed Stented coronary artery / 5752630462 / Confirmed Histories No education data available. [...] 0.5 Past Medical History: Active Atrial fibrillation (69890648) CAD - Coronary artery disease (5947212701) Cardiomyopathy (899554236) HLD - Hyperlipidemia (435454832) HTN - Hypertension (9515266265) Type 2 diabetes mellitus (845758431) Family History: Patient was adopted. No family history items have been selected or recorded. Procedure history: Cardiac catheterization. hernia repair. Tonsillectomy. Cholecystectomy; (63043). Appendectomy. left arm surgery. Coronary stents. EGD - Esophagogastroduodenoscopy ([id number]). Comments: 04/12/2020 7:04 EDT - Roxana Brady, RN with radio frequency ablation CABG x 4 - Coronary artery bypass grafts x 4 ([id number]). Physical Examination VS/Measurements No qualifying data available [...] Normal strength, No deformity. Integumentary: Warm, Dry, [place], No rash. Neurologic: Alert, Oriented, No focal [...] consent will be obtained. Further recommendations pending [facility] results. documented in this encounter Plan of Treatment Not on file documented as of this encounter Visit Diagnoses Not on filedocumented in this encounter Care Teams City Carrier Assistant Relationship Specialty Start Date End Date Marielos Amaral, KAYE [address] [place] [address] PCP - General Nurse Practitioner 08/18/23 documented as of this encounter
--- OUTSIDE RECORDS SUMMARY | 2025-05-20 11:57 | XMS_ITS | Encounter Summary ---
Author Organization [employer] ([place], [place], [place], [place]) Address [address] [place] [address] Care Team Providers Care Asphalt Layer Name Role Phone Marielos Amaral KAYE Primary Care Provider Encounter Details Date Type Department Care Team (Late st Contact Info) Description 02/08/2019 Transcribed Document [facility] [place] [address] [place] [address] ProviderHaroldo MD [address] [place] [address] Social History Tobacco Use Types Packs/Day Years [...] 02/08/2019 5:31 EDT Electronically signed by Brittany [facility] Conversion Sweeping Compound Blender Cerner at 01/24/2023 10:20 AM CDT documented in this encounter Plan of Treatment Not on file documented as of this encounter Visit Diagnoses Not on filedocumented in this encounter Care Teams Asphalt Layer Relationship Specialty Start Date End Date Rosette Amarale, PATIENT REGISTRATION SPECIALIST [address] [place] [address] PCP - General Nurse Practitioner 08/18/23 documented as of this encounter
--- OUTSIDE RECORDS SUMMARY | 2025-05-20 11:57 | XMS_ITS | Encounter Summary ---
Author Organization [employer] ([place], [place], [place], [place]) Address [address] [place] [address] Care Team Providers Care Pre Sales Technical Engineer Name Role Phone Marielos Amaral KAYE Primary Care Provider [phone] Encounter Details Date Type Department Care Team (Late st Contact Info) Description 02/08/2019 Transcribed Document [facility] [place] Family Medicine [address] [place] [address] ProviderHaroldo MD [address] [place] [address] Social History Tobacco Use Types Packs/Day Years [...] On: 02/08/2019 9:43 EDT by DIONE REY, Food Service Hotel Runner Primary Insurance Authorization Authorization and Policy Numbers : Insurance 1 Health Plan: [employer] GOLD PLUS HMO Policy Number: [id number] Authorization Number: PENDING IP Insurance Primary Name : Hum[employer] Choice Authorization Status-Primary : Awaiting callback Authorized Service Begin Date-Primary : 02/05/2019 EDT Authorization Comments-Primary : inpt auth is pending per availity trans id# [id number] Historical Authorization Comments-Primary : Comment 1: setup case for IP on availity. faxed clinicals via cerner. (GEGE JUÁREZ RN 02/07/2019 11:56) Comment 2: setup on availity obs approved. (GEGE JUÁREZ RN 02/06/2019 08:52) DIONE REY, Food Service Hotel Runner - 02/08/2019 9:43 EDT Electronically signed by Brittany [facility] Conversion Networking Administrator Cerner at 01/24/2023 10:31 AM CDT documented in this encounter Plan of Treatment Not on file documented as of this encounter Visit Diagnoses Not on filedocumented in this encounter Care Teams Pre Sales Technical Engineer Relationship Specialty Start Date End Date Marielos Amaral, AUTOMOTIVE CONSULTANT [address] [id number] PCP - General Nurse Practitioner 08/18/23 documented as of this encounter
--- OUTSIDE RECORDS SUMMARY | 2025-05-20 11:57 | XMS_ITS | Encounter Summary ---
Author Organization [employer] ([place], [place], [place], [place]) Address [address] [place] [address] Care Team Providers Care Supervisor Particleboard Name Role Phone Munir Marielos RESTREPO Primary Care Provider Encounter Details Date Type Department Care Team (Late st Contact Info) Description 04/22/2022 Transcribed Document [facility] [place] Family Medicine [address] [place] [address] ProviderHaroldo MD [address] [place] [address] Social History Tobacco Use Types [...] speak a language other than Taiwanese at [facility]? Yes 10/30/2024 Do [...] filedocumented in this encounter Care Teams Supervisor Particleboard Relationship Specialty Start Date End Date Marielos Amaral, DRY SAND MOLDER [address] [address] PCP - General Nurse Practitioner 08/18/23 documented as of this encounter
--- OUTSIDE RECORDS SUMMARY | 2025-05-20 11:57 | XMS_ITS | Encounter Summary ---
Author Organization [employer] ([place], [place], [place], [place]) Address [address] [place] [address] Care Team Providers Care Timber Robber Name Role Phone Marielos Amaral KAYE Primary Care Provider Encounter Details Date Type Department Care Team (Late st Contact Info) Description 12/12/2020 Transcribed Document [facility] [place] [address] [place] [address] ProviderHaroldo MD [address] [place] [address] Social History Tobacco Use Types Packs/Day Years Used Date Smoking Tobacco: Never Assessed Sex and Gender Information Value Date Recorded Sex Assigned at Not on file Legal Sex Male 3:45 PM CDT Gender Identity Not on file Sexual Orientation Not on file documented as of this encounter Miscellaneous Notes * Cerner Conversion Note - Historical ProviderMD - 12/12/2020 9:16 AM POOL MANAGER Pre Procedure Adult Entered On: 12/12/2020 9:22 EST Performed On: 12/12/2020 9:16 EST by Marielle Ward RN Height and Weight, Clinical Dosing Height Source : Stated Height Entry Format : [place] Height, Feet : 5 ft(Converted to: 152 cm, 60 Inch) Height, Inches : 9 Inch(Converted to: 0 ft 9 Inch, 22.86 cm) Clinical Height : 175.26 cm Weight Source : Standing scale Weight Entry Format : [place] Clinical Dosing Weight : 89.55 kg Weight, Pounds : 197 lb Body Surface Area (BSA) : 2.05 m2 Body Mass Index : 29.2 kg/m2 (HI) [place] Body Weight : 70 kg Marielle Ward [...] History. (Last Updated: 02/07/2017 12:26:55 EDT by aJck Aldana RN) Former smoker, quit more than [...] Marielle Ward RN - 12/12/2020 9:16 EST [place] Suicide Severity Rating Scale (C-SSRS) CSSRS Past [...] Clint Legal Guardian : No Support Person/Patient Pulp Drier Firer : Yes Support Person/Pt Rep Name : Enriqueta - Contact Password : melanie Support Person/Pt Rep Contact Information : [phone], cell Want Family/Rep/Phys Notified of Admit : No Emergency Contact #1 : na Emergency Contact #1 Phone Number : nan Emergency Contact #1 Relationship : na Emergency Contact #2 : na Emergency Contact #2 Phone Number : na Emergency Contact #2 Relationship : na Primary Language : Slovak Preferred Communication Mode : Verbal Communication Barrier : None Representative Government Relations Needed : No Marielle Ward RN - [...] Scale Risk Level : 0-24 Low Risk [place] Fall Interventions : Adequate lighting, Assistive devices [...] filedocumented in this encounter Care Teams Timber Robber Relationship Specialty Start Date End Date Marielos Amaral, CUSTOMER CARE MANAGER [address] [place] [address] PCP - General Nurse Practitioner 08/18/23 documented as of this encounter
--- OUTSIDE RECORDS SUMMARY | 2025-05-20 11:57 | XMS_ITS | Encounter Summary ---
Author Organization [employer] ([place], [place], [place], [place]) Address [address] [place] [address] Care Team Providers Care Hot End Operator Name Role Phone Marielos Amaral KAYE Primary Care Provider Encounter Details Date Type Department Care Team (Late st Contact Info) Description 12/12/2020 Transcribed Document [facility] [place] [address] ProviderHaroldo MD [address] [place], [place] [address] Social History Tobacco Use Types Packs/Day Years Used Date Smoking Tobacco: Never Assessed Sex and Gender Information Value Date Recorded Sex Assigned at Not on file Legal Sex Male 3:45 PM CDT Gender Identity Not on file Sexual Orientation Not on file documented as of this encounter Miscellaneous Notes * Cerner Conversion Note - Historical ProviderMD - 12/12/2020 4:42 PM BUILDING ILLUMINATING ENGINEER Nursing Discharge Summary Entered On: 12/12/2020 16:43 [...] - 12/12/2020 16:42 EST Electronically signed by [facility] Conversion Sfdc Consultant Cerner at 01/24/2023 10:20 AM CDT documented in this encounter Plan of Treatment Not on file documented as of this encounter Visit Diagnoses Not on filedocumented in this encounter Care Teams Hot End Operator Relationship Specialty Start Date End Date Marielos Amaral, HEALTH INFORMATION TECHNOLOGIST [address] [place] [address] PCP - General Nurse Practitioner 08/18/23 documented as of this encounter
--- OUTSIDE RECORDS SUMMARY | 2025-05-20 11:57 | XMS_ITS | Encounter Summary ---
Author Organization [employer] ([place], [place], [place], [place]) Address [address] [place] [address] Care Team Providers Care Camp Attendant Name Role Phone Marielos Amaral KAYE Primary Care Provider Encounter Details Date Type Department Care Team (Late st Contact Info) Description 02/08/2019 Transcribed Document [facility] [place] [address] [place] [address] ProviderHaroldo MD [address] [place] [address] Social History Tobacco Use Types Packs/Day Years Used Date Smoking Tobacco: Never Assessed Sex and Gender Information Value Date Recorded Sex Assigned at Not on file Legal Sex Male 3:45 PM CDT Gender Identity Not on file Sexual Orientation Not on file documented as of this encounter Miscellaneous Notes * [employer] Conversion Note - Haroldo ProviderMD - 02/08/2019 2:00 AM CDT Quality Audit Representative Details Entered On: 02/08/2019 3:35 EDT Performed [...] filedocumented in this encounter Care Teams Camp Attendant Relationship Specialty Start Date End Date Marielos Amaral, TRANSPORTER DRIVER [address] [address] PCP - General Nurse Practitioner 08/18/23 documented as of this encounter
--- OUTSIDE RECORDS SUMMARY | 2025-05-20 11:57 | XMS_ITS | Encounter Summary ---
Author Organization [employer] ([place], [place], [place], [place]) Address [address] [place] [address] Care Team Providers Care Typesetting Machine Operator/Tender Name Role Phone Marielos Amaral APRN Primary Care Provider Encounter Details Date Type Department Care Team (Late st Contact Info) Description 11/30/2020 Transcribed Document [facility] Cardiology [address] [place], [place] [id number] [place] [address] [place] [address] [address] [place] [address] Social History Tobacco Use Types Packs/Day Years [...] however, no clear reversibility to suggest ischemia. /[id number] John Salguero MD NMF/AQ / NMF / MODL /[id number] documented in this encounter Plan of Treatment Not on file documented as of this encounter Visit Diagnoses Not on filedocumented in this encounter Care Teams Typesetting Machine Operator/Tender Relationship Specialty Start Date End Date Marielos Amaral APRN [address] [place] [address] PCP - General Nurse Practitioner 08/18/23 documented as of this encounter
--- OUTSIDE RECORDS SUMMARY | 2025-05-20 11:57 | XMS_ITS | Encounter Summary ---
Author Organization [employer] ([place], [place], [place], [place]) Address [address] [place] [address] Care Team Providers Care Mechanical Engineering Professor Name Role Phone Marielos Amaral KAYE Primary Care Provider [phone] Encounter Details Date Type Department Care Team (Late st Contact Info) Description 02/09/2019 Transcribed Document [facility] [place] Family Medicine [facility] [place] [address] ProviderHaroldo MD [address] [place] [address] Social History Tobacco Use Types Packs/Day Years [...] these instructions at home: Medicines ??? Take xllk-gtb-kywtqos and prescription medicines only as told by [...] 09/22/2006 Document Revised: 03/04/2017 Document Reviewed: 12/18/2016 [employer] Interactive Patient Education ? 2017 [employer] Weakness Weakness is a lack of [...] 09/04/2009 Document Revised: 03/23/2013 Document Reviewed: 07/12/2016 [employer] Interactive Patient Education ? 2017 [employer] documented in this encounter Plan of Treatment Not on file documented as of this encounter Visit Diagnoses Not on filedocumented in this encounter Care Teams Mechanical Engineering Professor Relationship Specialty Start Date End Date Marielos Amaral, KAYE [address] [address] PCP - General Nurse Practitioner 08/18/23 documented as of this encounter
--- OUTSIDE RECORDS SUMMARY | 2025-05-20 11:57 | XMS_ITS | Encounter Summary ---
Author Organization [employer] ([place], [place], [place], [place]) Address [address] [place] [address] Care Team Providers Care Shorthand Teacher Name Role Phone Marielos Amaral KAYE Primary Care Provider [phone] Encounter Details Date Type Department Care Team (Late st Contact Info) Description 02/09/2019 Transcribed Document [facility] [place] Family [place] [address] ProviderHaroldo MD [address] [place] [address] Social History Tobacco Use Types Packs/Day Years [...] On: 02/09/2019 13:20 EDT by GERALDINE BROWN, RN-Photolithographic Stripper Final Discharge Planning Discharge Arrangements : Patient Post-Acute Information Patient Name: ZACKARY ANTOINE Gender: Male : [birth year] Age: 68 Years No Post-Acute Placement(s) Listed No Post-Acute Service(s) Listed No [place] Referral(s) Listed GERALDINE BROWN, RN-Photolithographic Stripper - 02/09/2019 13:20 EDT Accts Placement Outside [facility] Account #1 Service : Outpatient physical therapy Organization : [facility] Business Address : [address] [address] Comment (Comment: wanted them to call her to arrange her first appointment [GERALDINE BROWN, RN-Photolithographic Stripper - 02/09/2019 13:20 EDT] ) GERALDINE BROWN, RN-Photolithographic Stripper - 02/09/2019 13:20 EDT Transportation Needs : Car Discharge Transportation Arrangement Cmt : Follow Up Appointment Scheduled : Yes Is Patient High/Moderate Readmission Risk? : No Patient/Family Notified of Plan : Yes Patient/Family Notified : patient and his Discharge To Care Management : Home/Residential/Intermediate or Self Care -01 GERALDINE BROWN, RN-Photolithographic Stripper - 02/09/2019 13:20 EDT Final Narrative Note Final Narrative Note : Pt's requests outpatient physical therapy at [facility] in [place] (phone [phone] / fax [phone]). She wants them to contact her to schedule pt's first appointment. Attented to call [facility] but no answer. Orders faxed. GERALDINE BROWN, RN-Photolithographic Stripper - 02/09/2019 13:20 EDT documented in this encounter Plan of Treatment Not on file documented as of this encounter Visit Diagnoses Not on filedocumented in this encounter Care Teams Shorthand Teacher Relationship Specialty Start Date End Date Marielos Amaral, KAYE [address] [address] PCP - General Nurse Practitioner 08/18/23 documented as of this encounter
--- OUTSIDE RECORDS SUMMARY | 2025-05-20 11:57 | XMS_ITS | Clinical Summary ---
Author Organization [facility] Address [address] [place] [address] Care Team Providers Care Winding Machine Operator Name Role Phone Marielos Amaral KAYE Primary Care Provider [phone] Allergies No known active allergies Medications hydrALAZINE (Apresoline) 50 MG tabletIndications :Essential hypertension Take 1.5 tablets (75 mg total) by mouth 3 (three) times a day. 135 tablet 3 2 Active ergocalciferol (Drisdol) 1.25 MG (10621 UT) capsuleIndication s:Vitamin D deficiency 50,000 units [...] (2 of 2 - PCV) 02/16/2018 02/16/2017 [id number] Vaccine ( season) 2024 08/13/2022, 02/02/2021, 01/02/2021 [...] patient's age to complete this topic Insurance [facility] MEDICARE Care Teams Winding Machine Operator Relationship Specialty Start Date End Date Marielos Amaral, KAYE [address] [place] [address] PCP - General 03/26/22
--- OUTSIDE RECORDS SUMMARY | 2025-05-20 11:57 | XMS_ITS | Clinical Summary ---
Author Organization [employer] ([place], [place], [place], [place]) Address [address] [place] [address] Care Team Providers Care Inspecting And Testing Lead Hand Name Role Phone AmaralMarielos roque KAYE Primary Care Provider [phone] Allergies Active Allergy Reactions Criticality Noted Date [...] Immunizations Name Administration Dates Next Due INFLUENZA(FLUCELVAX)_0.5 mL(6MOS+)TRI(ALE391) Social History Tobacco Use Types Packs/Day Years [...] Do you speak a language other than [place]an at [facility]? Yes 10/30/2024 Do [...] Nonreactive Nonreactive, Equivocal 09/15/2024 4:51 PM EST [facility] Hep B C IgM Nonreactive Nonreactive 09/15/2024 4:51 PM EST [facility] Hepatitis B surface antigen Nonreactive Nonreactive, Equivocal 09/15/2024 4:51 PM EST [facility] Hepatitis C Ab Nonreactive Nonreactive, Equivocal 09/15/2024 4:51 PM EST [facility] Blood Venipuncture / Unknown 09/15/2024 2:53 PM EST 09/15/2024 3:10 PM EST [facility] - 09/15/2024 4:51 PM EST [...] MD LAB BLOOD ORDERABLES Final Re sult [facility] [address] [id number] [phone] from Last 3 Months or Most Recently Relevant to Health Maintenance Insurance [facility] [email or web address] ACCESS O MAP Advance Directives For more information, please contact: [phone] * Full Code (Latest Code Status on [...] Enriqueta Toy Spouse Healthcare Decision-Maker Care Teams Inspecting And Testing Lead Hand Relationship Specialty Start Date End Date AmaralMarielos, TIE MILL OPERATOR [address] [place] [address] PCP - General Nurse Practitioner 08/18/23
--- OUTSIDE RECORDS SUMMARY | 2025-05-20 11:57 | XMS_ITS | Encounter Summary ---
Author Organization [employer] ([place], [place], [place], [place]) Address [address] [place] [address] Care Team Providers Care Pediatric Occupational Therapist Name Role Phone AmaralMarielos roque KAYE Primary Care Provider Encounter Details Date Type Department Care Team (Late st Contact Info) Description 12/12/2020 Transcribed Document [facility] [place] Family Medicine [facility] [address] ProviderHaroldo MD [address] [place], [place] [address] Social History Tobacco Use Types Packs/Day Years Used Date Smoking Tobacco: Never Assessed Sex and Gender Information Value Date Recorded Sex Assigned at Not on file Legal Sex Male 3:45 PM CDT Gender Identity Not on file Sexual Orientation Not on file documented as of this encounter Miscellaneous Notes * Cerner Conversion Note - Haroldo ProviderMD - 12/12/2020 3:20 PM COUNCILPERSON Patient Education Materials Follows: Groin Site Care [...] Document Reviewed: 10/25/2011 ExitCare? Patient Information ?2013 [employer]. Heart-Healthy Eating Plan Heart-healthy meal planning includes: [...] Fats and oils Meat fat, or shortening. [place] butter, hydrogenated oils, palm oil, coconut oil, [...] 03/23/2013 Document Revised: 11/26/2018 Document Reviewed: 10/30/2018 [employer] Patient Education ? 2020 [employer]. Moderate Conscious Sedation, Adult, Care After [...] you are awake and alert. ??? Take dsot-sep-utrsxmd and prescription medicines only as told by [...] 07/13/2014 Document Revised: 09/04/2018 Document Reviewed: 01/11/2017 [employer] Patient Education ? 2020 [employer]. FAQ - Patient COVID-19 testing Why do [...] through the local health department and the [place] Department for Public Health. Those organizations are [...] and need to call 911, notify the gate shear operator that you have, or think you [...] clean your hands with an alcohol-based hand corporate job titles that contains at least 60% alcohol. Clean your hands often. ??? Wash hands: Wash your hands often with soap and water for at least 20 seconds when visibly dirty. This is especially important after blowing your nose, coughing or sneezing, and going to the bathroom, and before eating or preparing food. ??? Hand corporate job titles: Use an alcohol-based hand corporate job titles with at least 60% alcohol, covering all [...] and water or put them in the customer service receptionist. Clean all high-touch surfaces every day. Clean [...] or body fluids on them. ??? Household routing equipment tender and disinfectants: Clean the area or item [...] list of disinfectants can be found here: https://www.epa.gov/pesticide-registration/jomp-r-gsponqqildqlx-nsq-dyltlsq-uz rs-cov-2 Radiology Coronary Angiogram A coronary angiogram [...] including vitamins, herbs, eye drops, creams, and dltn-dvo-vbqtlgm medicines. ??? Any problems you or family [...] 03/28/2004 Document Revised: 09/04/2018 Document Reviewed: 07/04/2017 [employer] Patient Education ? 2020 [employer]. documented in this encounter Plan of Treatment Not on file documented as of this encounter Visit Diagnoses Not on filedocumented in this encounter Care Teams Pediatric Occupational Therapist Relationship Specialty Start Date End Date Marielos Amaral APRN [address] [address] PCP - General Nurse Practitioner 08/18/23 documented as of this encounter
--- OUTSIDE RECORDS SUMMARY | 2025-05-20 11:57 | XMS_ITS | Encounter Summary ---
Author Organization [employer] ([place], [place], [place], [place]) Address [address] [place] [address] Care Team Providers Care Global Product Manager Name Role Phone Marielos Amaral KAYE Primary Care Provider Encounter Details Date Type Department Care Team (Late st Contact Info) Description 12/12/2020 Transcribed Document [facility] [place] Family Medicine [address] [place] [address] ProviderHaroldo MD [address] [place] [address] Social History Tobacco Use Types Packs/Day Years Used Date Smoking Tobacco: Never Assessed Sex and Gender Information Value Date Recorded Sex Assigned at Not on file Legal Sex Male 3:45 PM CDT Gender Identity Not on file Sexual Orientation Not on file documented as of this encounter Miscellaneous Notes * Cerner Conversion Note - Haroldo ProviderMD - 12/12/2020 4:43 PM ACCOUNTING CONSULTANT [facility] [address] [place] [id number] ZACKARY ANTOINE :1950 Visit Time:12/12/2020 Your Visit Summary Your Care Team Admitting Physician - MARIAM CHATMAN MD-CAR Attending Physician - MARIAM CHATMAN MD-CAR Primary Care Physician - KATELYN MCKEON [facility] Referring Physician - FALLUJI, NEZAR M, MD-CAR Your Diagnosis Atherosclerotic heart disease of [place] coronary artery without angina pectoris, Atherosclerotic heart disease of [place] coronary artery without angina pectoris Discharge [...] EDT Comments Appointment has been made Where: [address] [place] [address] [place] [address]- Business (1) Medications What How Much When [...] 10/25/2011 Document Revised: 12/14/2012 Document Reviewed: 10/25/2011 [facility]?? Patient Information ??2014 [employer]. Coronary Angiogram A coronary angiogram is an [...] including vitamins, herbs, eye drops, creams, and rlfw-stc-onfddzf medicines. ??? Any problems you or family [...] Reviewed: 07/04/2017 Elsevier Patient Education ?? 2020 [employer]. Heart-Healthy Eating Plan Heart-healthy meal planning includes: [...] Fats and oils Meat fat, or shortening. [place] butter, hydrogenated oils, palm oil, coconut oil, [...] 03/23/2013 Document Revised: 11/26/2018 Document Reviewed: 10/30/2018 [employer] Patient Education ?? 2020 [employer]. Moderate Conscious Sedation, Adult, Care After These [...] you are awake and alert. ??? Take qrbg-ocj-ythdgvj and prescription medicines only as told by [...] 07/13/2014 Document Revised: 09/04/2018 Document Reviewed: 01/11/2017 [employer] Patient Education ?? 2020 [employer]. FAQ ??? Patient COVID-19 testing Why do [...] through the local health department and the [place] Department for Public Health. Those organizations are [...] and need to call 911, notify the traveling operator that you have, or think you [...] clean your hands with an alcohol-based hand cranberry farm supervisor that contains at least 60% alcohol. Clean your hands often. ??? Wash hands: Wash your hands often with soap and water for at least 20 seconds when visibly dirty. This is especially important after blowing your nose, coughing or sneezing, and going to the bathroom, and before eating or preparing food. ??? Hand cranberry farm supervisor: Use an alcohol-based hand cranberry farm supervisor with at least 60% alcohol, covering all [...] and water or put them in the river and lakes boatman. Clean all high-touch surfaces every day. Clean [...] or body fluids on them. ??? Household fashion consultant sales and disinfectants: Clean the area or item [...] list of disinfectants can be found here: https://www.epa.gov/pesticide-registration/syna-u-pffkagyhpsywk-pcl-qesxbco-dq rs-cov-2 Emergency Awareness and Preventative Care STROKE [...] Assistance with quitting is available by contacting 1-830-AQVY-NOW. This is a free resource providing counseling, [...] was given the opportunity to ask questions. Patient/Price Changer Name: Patient/Price Changer Signature: Relationship to Patient: Clinician/Hospital Price Changer Signature: Date: Electronically signed by Brittany, [facility] Conversion Ferryboat Operator Cable Cerner at 01/24/2023 10:30 AM CDT documented in this encounter Plan of Treatment Not on file documented as of this encounter Visit Diagnoses Not on filedocumented in this encounter Care Teams Global Product Manager Relationship Specialty Start Date End Date Marielos Amaral, PLATING STRIPPER [address] [place] [address] PCP - General Nurse Practitioner 08/18/23 documented as of this encounter
--- OUTSIDE RECORDS SUMMARY | 2025-05-20 11:57 | XMS_ITS | Encounter Summary ---
Author Organization [employer] ([place], [place], [place], [place]) Address [address] [place] [address] Care Team Providers Care Die Cut Operator Name Role Phone Marielos Amaral KAYE Primary Care Provider Encounter Details Date Type Department Care Team (Late st Contact Info) Description 11/01/2020 Transcribed Document [facility] [place] [facility] [place] [address] ProviderHaroldo MD [address] [place] [address] Social History Tobacco Use Types Packs/Day Years Used Date Smoking Tobacco: Never Assessed Sex and Gender Information Value Date Recorded Sex Assigned at Not on file Legal Sex Male 3:45 PM CDT Gender Identity Not on file Sexual Orientation Not on file documented as of this encounter Miscellaneous Notes * Cerner Conversion Note - Haroldo ProviderMD - 11/01/2020 2:07 AM COREROOM FOUNDRY LABORER ED Discharge Entered On: 11/01/2020 2:07 EST [...] - 11/01/2020 2:07 EST Electronically signed by [facility], [facility] Conversion Beverage Specialist Cerner at 01/24/2023 10:25 AM CDT documented in this encounter Plan of Treatment Not on file documented as of this encounter Visit Diagnoses Not on filedocumented in this encounter Care Teams Die Cut Operator Relationship Specialty Start Date End Date Marielos Amaral, PAYROLL ACCOUNTING SPECIALIST [address] [place] [address] PCP - General Nurse Practitioner 08/18/23 documented as of this encounter
--- OUTSIDE RECORDS SUMMARY | 2025-05-20 11:58 | XMS_ITS | Encounter Summary ---
Author Organization [employer] ([place], [place], [place], [place]) Address [address] [place] [address] Care Team Providers Care Hand Bunch Maker Name Role Phone Marielos Amaral KAYE Primary Care Provider [phone] Encounter Details Date Type Department Care Team (Late st Contact Info) Description 10/31/2020 Transcribed Document [facility] [place] [address] [place] [address] ProviderHaroldo MD [address] [place], [place] [address] Social History Tobacco Use Types Packs/Day Years Used Date Smoking Tobacco: Never Assessed Sex and Gender Information Value Date Recorded Sex Assigned at Not on file Legal Sex Male 3:45 PM CDT Gender Identity Not on file Sexual Orientation Not on file documented as of this encounter Miscellaneous Notes * Cerner Conversion Note - Historical ProviderMD - 10/31/2020 11:42 PM QUALITY ASSISTANT Bro[place] Violence Assessment Entered On: 11/01/2020 1:33 EST Performed On: 11/01/2020 1:32 EST by Cara Butler Rn Broset Violence Assessment Broset Violence Checklist of Symptoms : None Broset Violence Symptoms Subtotal : 0 Broset Violence Symptoms Indicator : Low risk (0) Cara Butler Rn - 11/01/2020 1:32 EST Electronically signed by Brittany [facility] Conversion Supervisor Fabrication Department [employer] at 01/24/2023 10:37 AM CDT documented in this encounter Plan of Treatment Not on file documented as of this encounter Visit Diagnoses Not on filedocumented in this encounter Care Teams Hand Bunch Maker Relationship Specialty Start Date End Date Marielos Amaral, KAYE [address] [place] [address] PCP - General Nurse Practitioner 08/18/23 documented as of this encounter
--- OUTSIDE RECORDS SUMMARY | 2025-05-20 11:58 | XMS_ITS | Encounter Summary ---
Author Organization [employer] ([place], [place], [place], [place]) Address [address] [place] [address] Care Team Providers Care Ammonia Print Operator Name Role Phone AmaralMarielos KAYE Primary Care Provider Encounter Details Date Type Department Care Team (Late st Contact Info) Description 11/01/2020 Transcribed Document [facility] [place] Family Medicine [address] [place] [address] ProviderHaroldo MD [address] [place] [address] Social History Tobacco Use Types Packs/Day Years Used Date Smoking Tobacco: Never Assessed Sex and Gender Information Value Date Recorded Sex Assigned at Not on file Legal Sex Male 3:45 PM CDT Gender Identity Not on file Sexual Orientation Not on file documented as of this encounter Miscellaneous Notes * Cerner Conversion Note - Haroldo ProviderMD - 11/01/2020 1:58 AM TECHNICAL ADMINISTRATOR [facility] [address] ZACKARY ANTOINE JOYCE :1950 Visit Time:10/31/2020 [...] Within 2 to 3 days Where: [address] [facility] [address] [place] [address] Business (1) Follow Up with KATELYN MCKEON When Within 2 to 3 days Where: [address] [place] [address] [facility] (1) Allergies Mucinex amoxicillin Immunizations This Visit No Immunizations Found Medications What How Much When Instructions Next Dose bumetanide (bumetanide 1 mg oral tablet) 1 Tablet(s) Oral Every Day Duration: 7 Day(s) [facility] acetaminophen (Tylenol 325 mg oral [...] 1 Capsule(s) Oral Every Day Pharmacy Information [facility] 493: [phone] [phone] The home medications listed are only as [...] range between ( 0.0 and 7.0 ) [place] #: 0.92 K/uL -- Normal range between ( 0.16 and 1.00 ) [place] #: 0.21 x10(3)/uL -- Normal range between ( 0.00 and 0.80 ) [place] %: 9.7 % -- Normal range between [...] these instructions at home: Medicines ??? Take yzyy-kmb-fmlvhle and prescription medicines only as told by your health care provider. ??? Do not stop taking your medicines or change the amount you take. If you are having problems or side effects from your medicines, talk to your health care provider. ??? If you are having difficulty paying for your medicines, contact a social media marketing manager or your clinic. There are many programs [...] Assistance with quitting is available by contacting 1-550-SMSHNOW. This is a free resource providing counseling, support, and referral. Or you may contact your personal physician. [employer] [facility] Suicide Prevention Lifeline: The National Suicide Prevention [...] was given the opportunity to ask questions. Patient/Big Data Software Engineer Name: Patient/Big Data Software Engineer Signature: Relationship to Patient: Clinician/Hospital Big Data Software Engineer Signature: Please Provide a Telephone Number Where You Can Be Reached: Is it Permissible To Leave a Message? Date: documented in this encounter Plan of Treatment Not on file documented as of this encounter Visit Diagnoses Not on filedocumented in this encounter Care Teams Ammonia Print Operator Relationship Specialty Start Date End Date Marielos Amaral APRN [address] [address] PCP - General Nurse Practitioner 08/18/23 documented as of this encounter
--- OUTSIDE RECORDS SUMMARY | 2025-05-20 11:58 | XMS_ITS | Encounter Summary ---
Author Organization [employer] ([place], [place], [place], [place]) Address [address] [place] [address] Care Team Providers Care Bench Assembler Battery Name Role Phone Munir Marielos RESTREPO Primary Care Provider Encounter Details Date Type Department Care Team (Late st Contact Info) Description 04/27/2022 Transcribed Document [facility] [place] [address] [place] [address] ProviderHaroldo MD [address] [place] [address] Social History Tobacco Use Types [...] speak a language other than Citizen Of [place] at [facility]? Yes 10/30/2024 Do you want [...] FANY FREEMAN, PT - 04/27/2022 8:39 EDT Disability Manager Goals Mobility/Bed Mobility LTG PT Grid Goal [...] 04/27/2022 8:39 EDT Electronically signed by Brittany [facility] Conversion Trimmer Meat Cerner at 01/24/2023 10:33 AM CDT documented in this encounter Plan of Treatment Not on file documented as of this encounter Visit Diagnoses Not on filedocumented in this encounter Care Teams Bench Assembler Battery Relationship Specialty Start Date End Date Marielos Amaral, WAREHOUSE ANALYST [address] [place] [id number] PCP - General Nurse Practitioner 08/18/23 documented as of this encounter
--- OUTSIDE RECORDS SUMMARY | 2025-05-20 11:58 | XMS_ITS | Encounter Summary ---
Author Organization [employer] ([place], [place], [place], [place]) Address [address] [place] [address] Care Team Providers Care Lease Picker Name Role Phone Munir Brii RESTREPO Primary Care Provider Encounter Details Date Type Department Care Team (Late st Contact Info) Description 04/26/2022 Transcribed Document [facility] [place] [address] [place] [address] ProviderHaroldo MD [address] [place] [address] Social History Tobacco Use Types [...] Do you speak a language other than Belize[place] at [facility]? Yes 10/30/2024 Do you [...] on filedocumented in this encounter Care Teams Lease Picker Relationship Specialty Start Date End Date Brii Amaral APRN [address] [id number] PCP - General Nurse Practitioner 08/18/23 documented as of this encounter
--- OUTSIDE RECORDS SUMMARY | 2025-05-20 11:58 | XMS_ITS | Encounter Summary ---
Author Organization [employer] ([place], [place], [place], [place]) Address [address] [place] [address] Care Team Providers Care Proposal Engineer Name Role Phone Munir Marielos RESTREPO Primary Care Provider Encounter Details Date Type Department Care Team (Late st Contact Info) Description 05/01/2022 Transcribed Document [facility] [place] [facility] [place] [address] [place] [address] ProviderHaroldo MD [address] [place] [address] Social History Tobacco Use Types [...] Do you speak a language other than Australian at [facility]? Yes 10/30/2024 [...] On: 05/01/2022 8:48 EDT by Kari Chaudhary, Grain Weigher Primary Insurance Authorization Authorization and Policy Numbers : Insurance 1 Health Plan: [employer] MEDICARE REPL Policy Number: [id number] Authorization Number: Insurance Primary Name : [employer] MEDICARE REPL Policy Number: [id number] Authorization Status-Primary : Drg approved Auth/Referral Contact Name-Primary : DC Reference Number-Primary : [id number] Authorization Number-Primary : [id number] Number of Days Authorized-Primary : 3 Day(s) Authorized Service Begin Date-Primary : 04/22/2022 EDT Authorized Service End Date-Primary : 04/25/2022 EDT Authorization Comments-Primary : Authorized per fax 04/30/22 @ 2533. Approved DRG admission 04/22 - 04/25. Historical Authorization Comments-Primary : Comment 1: Remains pending per [employer]aility. (Vanessa Pimentel, SUPV-QUALITY 04/29/2022 14:55) Comment 2: Discharge summary as well as continued stay clinical 04/24 - discharge faxed. (Kari Chaudhary, Grain Weigher 04/29/2022 14:17) Comment 3: Request for inpt auth submitted via [employer] Ref# [id number] received;clinicals attached. (Radha Dillon RN 04/23/2022 18:56) Kari Chaudhary, Grain Weigher - 05/01/2022 8:48 EDT documented in this encounter Plan of Treatment Not on file documented as of this encounter Visit Diagnoses Not on filedocumented in this encounter Care Teams Proposal Engineer Relationship Specialty Start Date End Date Marielos Amaral, PIANO REFINISHER [address] [place] [phone] PCP - General Nurse Practitioner 08/18/23 documented as of this encounter
--- OUTSIDE RECORDS SUMMARY | 2025-05-20 11:58 | XMS_ITS | Encounter Summary ---
Author Organization [employer] ([place], [place], [place], [place]) Address [address] [place] [address] Care Team Providers Care Medical Billing Instructor Name Role Phone Munir Brii RESTREPO Primary Care Provider [phone] Encounter Details Date Type Department Care Team (Late st Contact Info) Description 04/26/2022 Transcribed Document [facility] [place] Family Medicine [address] [place] [address] ProviderHaroldo MD [address] [place] [address] Social History Tobacco Use Types [...] speak a language other than Japanese at [facility]? Yes 10/30/2024 [...] Haroldo Provider, - 04/26/2022 1:19 PM CDT [facility] [place] [id number] DEION ANTOINE :1950 Visit Time:04/22/2022 Your Visit [...] Within 1 week Where: [address] [address]- Business (1) Follow Up with PARAM WEBBER When Within 2 weeks Comments Follow up with LAMBERTO in 2 weeks @ [facility] with renal function panel and UA. Where: [address] [facility] [address] [place] [address]- Business (1) Medications What How Much When Instructions Next Dose Durable Medical Equipment (Glucometer Lancets) 1 Each Miscellaneous See Comment Glucometer Lancets. to check blood sugar TID. disp # 100. no refills. Pickup at [facility] Durable [facility] Equipment (Glucometer Test Strips) 1 Each Miscellaneous See Comment Glucometer Test Strips. to check blood sugar TID. disp # 100. no refills. Pickup at [facility] Equipment (Glucometer) 1 Each Miscellaneous See Comment Glucometer Pickup at [facility] insulin glargine (Basaglar KwikPen 100 units/ mL subcutaneous solution) 15 Unit(s) SubCutaneous Once a day (at bedtime) Pickup at [facility] levothyroxine (levothyroxine 75 mcg (0.075 mg) oral tablet) 1 Tablet(s) Oral Every Day Pickup at [facility] amiodarone (amiodarone 200 mg oral tablet) [...] 1 Capsule(s) Oral Every Day Pharmacy Information [facility] [place]: [id number] [place], [place] [phone] Take your medications faithfully. Do NOT skip [...] these instructions at home: Medicines ??? Take rstx-rer-duirfim and prescription medicines only as told by [...] important. Where to find more information ??? [place] Association of Kidney Patients: www.aakp.org ??? National Kidney Foundation: www.kidney.org ??? [place] Kidney Fund: www.akfinc.org ??? [facility] [...] provider. Document Revised: 08/01/2020 Document Reviewed: 08/01/2020 [employer] Patient Education ?? 2020 [employer] Funding. Emergency Awareness and Preventative Care STROKE is [...] Assistance with quitting is available by contacting 0-111-BSED-NOW. This is a free resource providing counseling, [...] range between ( 0.0 and 7.0 ) [place] #: 0.48 K/uL -- Normal range between ( 0.16 and 1.00 ) [place]os #: 0.11 x10(3)/uL -- Normal range between ( 0.00 and 0.80 ) [place] %: 9.8 % -- Normal range between [...] /LPF Urine Bilirubin Dipstick: Negative Urine Specific [place]: 1.010 -- Normal range between ( 1.005 [...] ( 50 and 1400 ) Sodium Ur [place]: 85 mMole/Liter Protein Ur [place]: 20 mg/dL General Chemistry 04/26/2022 1:12 PM [...] was given the opportunity to ask questions. Patient/Page Makeup System Operator Name: Patient/Page Makeup System Operator Signature: Relationship to Patient: Clinician/Hospital Page Makeup System Operator Signature: Date: documented in this encounter Plan of Treatment Not on file documented as of this encounter Visit Diagnoses Not on filedocumented in this encounter Care Teams Medical Billing Instructor Relationship Specialty Start Date End Date Brii Amaral APRN [address] [place] [address] PCP - General Nurse Practitioner 08/18/23 documented as of this encounter
--- OUTSIDE RECORDS SUMMARY | 2025-05-20 11:58 | XMS_ITS | Encounter Summary ---
Author Organization [employer] ([place], [place], [place], [place]) Address [address] [place] [address] Care Team Providers Care Tandem Mill Sticker Name Role Phone Marielos Amaral KAYE Primary Care Provider Encounter Details Date Type Department Care Team (Late st Contact Info) Description 10/31/2020 Transcribed Document [facility] [place] [address] [place] [address] ProviderHaroldo MD [address] [place], [place] [address] Social History Tobacco Use Types Packs/Day Years Used Date Smoking Tobacco: Never Assessed Sex and Gender Information Value Date Recorded Sex Assigned at Not on file Legal Sex Male 3:45 PM CDT Gender Identity Not on file Sexual Orientation Not on file documented as of this encounter Miscellaneous Notes * Cerner Conversion Note - Historical ProviderMD - 10/31/2020 11:42 PM CORRECTIONS SPECIALIST ED Triage Entered On: 10/31/2020 23:49 EST [...] : 3 - Urgent Tracking Group : [facility] ED Lina John RN - 10/31/2020 23:44 EST Mode of Arrival : Ambulatory Transported to ED by : Private vehicle To Room Via : Ambulate Accompanied By : Unaccompanied ED Vital Signs : Document Height & Weight : Document ED Allergies : Document ED Reason for Visit : Document Tetanus Immunization : Greater than 5 years Technical Support 1 Software Engineer Needed : No Lina John RN - [...] Problems(Active) Acute cerebrovascular accident (CVA) (SNOMED CT :798168967 ) Name of Problem: Acute cerebrovascular accident (CVA) ; Recorder: Roxana Brady RN; Confirmation: Confirmed ; Classification: Medical ; Code: [id number] ; Contributor System: PowerChart ; Last Updated: 04/12/2020 7:03 EDT ; Life Cycle Date: 04/12/2020 ; Life Cycle Status: Active ; Vocabulary: SNOMED CT Angina (SNOMED CT :346360986 ) Name of Problem: Angina ; Recorder: RAVEN REILLY RN; Confirmation: Confirmed ; Classification: Patient Stated ; Code: 211295442 ; Contributor System: PowerChart ; Last Updated: 07/20/2014 9:33 EDT ; Life Cycle Date: 07/20/2014 ; Life Cycle Status: Active ; Vocabulary: SNOMED CT Coronary artery disease (SNOMED CT :0051808436 ) Name of Problem: Coronary artery disease ; Recorder: RAVEN REILLY RN; Confirmation: Confirmed ; Classification: Patient Stated ; Code: 1906387537 ; Contributor System: PowerChart ; Last Updated: 07/20/2014 9:33 EDT ; Life Cycle Date: 07/20/2014 ; Life Cycle Status: Active ; Vocabulary: SNOMED CT Diabetes mellitus type II (SNOMED CT :19927621 ) Name of Problem: Diabetes mellitus type II ; Recorder: RAVEN REILLY RN; Confirmation: Confirmed ; Classification: Patient Stated ; Code: 90841677 ; Contributor System: PowerChart ; Last Updated: 07/20/2014 9:35 EDT ; Life Cycle Date: 07/20/2014 ; Life Cycle Status: Active ; Vocabulary: SNOMED CT Enlarged prostate (SNOMED CT :310936480 ) Name of Problem: Enlarged prostate ; Recorder: RAVEN ERILLY RN; Confirmation: Confirmed ; Classification: Patient Stated ; Code: 559514824 ; Contributor System: PowerChart ; Last Updated: 07/20/2014 9:34 EDT ; Life Cycle Date: 07/20/2014 ; Life Cycle Status: Active ; Vocabulary: SNOMED CT GERD - Gastro-esophageal reflux disease (SNOMED CT :1708754449 ) Name of Problem: GERD - Gastro-esophageal reflux disease ; Recorder: RAVEN REILLY RN; Confirmation: Confirmed ; Classification: Patient Stated ; Code: 1665062971 ; Contributor System: PowerChart ; Last Updated: 07/20/2014 9:34 EDT ; Life Cycle Date: 07/20/2014 ; Life Cycle Status: Active ; Vocabulary: SNOMED CT Heart failure (SNOMED CT :778158180 ) Name of Problem: Heart failure ; Recorder: RAVEN REILLY RN; Confirmation: Confirmed ; Classification: Patient Stated ; Code: 772291798 ; Contributor System: locrChart ; Last Updated: 07/20/2014 9:33 EDT ; Life Cycle Date: 07/20/2014 ; Life Cycle Status: Active ; Vocabulary: SNOMED CT Heart murmur (SNOMED CT :537729457 ) Name of Problem: Heart murmur ; Recorder: RAVEN REILLY RN; Confirmation: Confirmed ; Classification: Patient Stated ; Code: 778221078 ; Contributor System: PowerChart ; Last Updated: 07/20/2014 9:33 EDT ; Life Cycle Date: 07/20/2014 ; Life Cycle Status: Active ; Vocabulary: SNOMED CT History of obstructive sleep apnea (IMO :11002270 ) Name of Problem: History of obstructive sleep apnea ; Recorder: SYSTEM, SYSTEM; Confirmation: Confirmed ; Classification: Medical ; Code: 49740938 ; Last Updated: 01/20/2019 12:39 EDT ; Life Cycle Date: 01/20/2019 ; Life Cycle Status: Active ; Vocabulary: IMO Hyperlipidemia (SNOMED CT :22643260 ) Name of Problem: Hyperlipidemia ; Recorder: RAVEN REILLY RN; Confirmation: Confirmed ; Classification: Patient Stated ; Code: 97320225 ; Contributor System: PowerChart ; Last Updated: 09/03/2017 13:38 EST ; Life Cycle Date: 07/20/2014 ; Life Cycle Status: Active ; Vocabulary: SNOMED CT Hypertension (SNOMED CT :45202183 ) Name of Problem: Hypertension ; Recorder: RAVEN REILLY RN; Confirmation: Confirmed ; Classification: Patient Stated ; Code: 37683224 ; Contributor System: PowerChart ; Last Updated: 07/20/2014 9:33 EDT ; Life Cycle Date: 07/20/2014 ; Life Cycle Status: Active ; Vocabulary: SNOMED CT Impaired vision (SNOMED CT :30646429 ) Name of Problem: Impaired vision ; Recorder: RAVEN REILLY RN; Confirmation: Confirmed ; Classification: Patient Stated ; Code: 75263648 ; Contributor System: PowerChart ; Last Updated: 07/20/2014 9:32 EDT ; Life Cycle Date: 07/20/2014 ; Life Cycle Status: Active ; Vocabulary: SNOMED CT Migraine (SNOMED CT :71738854 ) Name of Problem: Migraine ; Recorder: RAVEN REILLY RN; Confirmation: Confirmed ; Classification: Patient Stated ; Code: 81971428 ; Contributor System: PowerChart ; Last Updated: 07/20/2014 9:35 EDT ; Life Cycle Date: 07/20/2014 ; Life Cycle Status: Active ; Vocabulary: SNOMED CT Stented coronary artery (SNOMED CT :3348788877 ) Name of Problem: Stented coronary artery ; Recorder: RAVEN REILLY RN; Confirmation: Confirmed ; Classification: Patient Stated ; Code: 9979728247 ; Contributor System: locrChart ; Last Updated: 07/20/2014 9:33 EDT ; Life Cycle Date: 07/20/2014 ; Life Cycle Status: Active ; Vocabulary: SNOMED CT Diagnoses(Active) SOA - Shortness of Air Date: 10/31/2020 ; Diagnosis Type: Reason For Visit ; Confirmation: Complaint of ; Clinical Dx: SOA - Shortness of Air ; Classification: Medical ; Clinical Service: Non-Specified ; Code: PNED ; Probability: 0 ; Diagnosis Code: [id number] ED Height and Weight Height Source : Stated Height Entry Format : [place] Height, Feet : 5 ft(Converted to: 152 cm, 60 Inch) Height, Inches : 9 Inch(Converted to: 0 ft 9 Inch, 22.86 cm) Clinical Height : 175.26 cm Weight Source, ED : Critical estimated dosing weight Weight Entry Format : [place] Weight, Pounds : 197 lb Clinical Dosing Weight : 89.55 kg Body Surface Area (BSA) : 2.05 m2 Body Mass Index : 29.2 kg/m2 (HI) [place] Body Weight (IBW) : 69.73 kg Lina [...] on filedocumented in this encounter Care Teams Tandem Mill Sticker Relationship Specialty Start Date End Date Marielos Amaral, ICE CREAM VAN VENDOR [address] [place] [address] PCP - General Nurse Practitioner 08/18/23 documented as of this encounter
--- OUTSIDE RECORDS SUMMARY | 2025-05-20 11:58 | XMS_ITS | Encounter Summary ---
Author Organization [employer] ([place], [place], [place], [place]) Address [address] [place] [address] Care Team Providers Care Non Acoustic Operator Name Role Phone Munir Marielos RESTREPO Primary Care Provider Encounter Details Date Type Department Care Team (Late st Contact Info) Description 04/26/2022 Transcribed Document [facility] [place] [address] [place] [address] ProviderHaroldo MD [address] [place] [address] Social History Tobacco Use Types [...] Do you speak a language other than Malawian at [facility]? Yes 10/30/2024 Do you [...] Other (See Comment) Eliquis: 2.5 mg, Oral, [id number] Flomax: 0.4 mg, Oral, Daily Metoprolol Succinate ER: 50 mg, Oral, Daily Normal Saline 1,000 mL: 100 mL/Hr, IntraVENous Rocephin: 1 Gram, 100 mL/Hr, IV Piggyback, [id number] Tylenol: 650 mg, Oral, Q4H, PRN: Pain [...] mg tab 2.5 mg 1 Tab, Oral, [id number] atorvastatin 40 mg tab 40 mg 1 Tab, Oral, At Bedtime cefTRIAXone 1 Gram, IV Piggyback, [id number] cholecalciferol 1,000 unit tab 1,000 Units 1 [...] list: Medical Atrial fibrillation / SNOMED CT 76947376 / Confirmed CAD - Coronary artery disease / SNOMED CT 0035095791 / Confirmed Cardiomyopathy / SNOMED CT 067893027 / Confirmed Acute cerebrovascular accident (CVA) / SNOMED CT 986890162 / Confirmed History of obstructive sleep apnea / IMO 35772980 / Confirmed HLD - Hyperlipidemia / SNOMED CT 938410757 / Confirmed HTN - Hypertension / SNOMED CT 1185170509 / Confirmed Type 2 diabetes mellitus / SNOMED CT 343871290 / Confirmed, Active Problems (20) Acute cerebrovascular [...] Gastrointestinal: Soft, Non-tender, Non-distended. Integumentary: Warm, Dry, [place]. Neurologic: Alert, Oriented, No focal deficits. Psychiatric: [...] renal diet. - No emergent need of SEISMOGRAPH HELPER. Will follow. Can be discharged today. Follow up with NAL in 2 weeks @ [facility] with renal function panel and UA. Electronically signed by Brittany, [facility] Conversion Account Development Associate Cerner at 01/24/2023 10:39 AM CDT documented in this encounter Plan of Treatment Not on file documented as of this encounter Visit Diagnoses Not on filedocumented in this encounter Care Teams Non Acoustic Operator Relationship Specialty Start Date End Date Amaral Marielos, RUBBERIZING MECHANIC [address] [address] PCP - General Nurse Practitioner 08/18/23 documented as of this encounter
--- OUTSIDE RECORDS SUMMARY | 2025-05-20 11:58 | XMS_ITS | Encounter Summary ---
Author Organization [employer] ([place], [place], [place], [place]) Address [address] [place] [address] Care Team Providers Care Worm Sorter Name Role Phone Marielos Amaral APRN Primary Care Provider Encounter Details Date Type Department Care Team (Late st Contact Info) Description 11/01/2020 Transcribed Document [facility] [place] Family Medicine [address] [place] [address] ProviderHaroldo MD [address] [place], [place] [address] Social History Tobacco Use Types Packs/Day Years Used Date Smoking Tobacco: Never Assessed Sex and Gender Information Value Date Recorded Sex Assigned at Not on file Legal Sex Male 3:45 PM CDT Gender Identity Not on file Sexual Orientation Not on file documented as of this encounter Miscellaneous Notes * Cerjude Conversion Note - Historical ProviderMD - 11/01/2020 1:57 AM GUN PERFORATOR LOADER Electronically signed by [facility] Conversion Cargo Service Agent Cerner at 01/24/2023 10:19 AM CDT documented in this encounter Plan of Treatment Not on file documented as of this encounter Visit Diagnoses Not on filedocumented in this encounter Care Teams Worm Sorter Relationship Specialty Start Date End Date Marielos Amaral APRN [address] [address] PCP - General Nurse Practitioner 08/18/23 documented as of this encounter
--- OUTSIDE RECORDS SUMMARY | 2025-05-20 11:58 | XMS_ITS | Encounter Summary ---
Author Organization [employer] ([place], [place], [place], [place]) Address [address] [place] [address] Care Team Providers Care Calendar Control Clerk Blood Bank Name Role Phone AmaralMarielos KAYE Primary Care Provider Encounter Details Date Type Department Care Team (Late st Contact Info) Description 11/01/2020 Transcribed Document [facility] [place] Medicine [address] [place] [address] ProviderHaroldo MD [address] [place], [place] [address] Social History Tobacco Use Types Packs/Day Years Used Date Smoking Tobacco: Never Assessed Sex and Gender Information Value Date Recorded Sex Assigned at Not on file Legal Sex Male 3:45 PM CDT Gender Identity Not on file Sexual Orientation Not on file documented as of this encounter Miscellaneous Notes * Cerner Conversion Note - Historical ProviderMD - 11/01/2020 8:30 PM AIRCRAFT ARMAMENT MECHANIC CR Chest 1 Vw Portable Ordered: 10/31/2020 Modified Reason for Exam: SOA 11/01/2020 08:09 11/01/2020 20:30 (ANABELA FRENCH PA) Reviewed by Provider, No further action required X1 - Noted/treated 11/01/2020 11:31 (ANISA CRAVEN) Provider Review Required documented in this encounter Plan of Treatment Not on file documented as of this encounter Visit Diagnoses Not on filedocumented in this encounter Care Teams Calendar Control Clerk Blood Bank Relationship Specialty Start Date End Date Marielos Amaral, FIELD AGENT [address] [place] [address] PCP - General Nurse Practitioner 08/18/23 documented as of this encounter
--- OUTSIDE RECORDS SUMMARY | 2025-05-20 11:58 | XMS_ITS | Encounter Summary ---
Author Organization [employer] ([place], [place], [place], [place]) Address [address] [place] [address] Care Team Providers Care Tax Manager Public Name Role Phone Marielos Amaral KAYE Primary Care Provider Encounter Details Date Type Department Care Team (Late st Contact Info) Description 10/31/2020 Transcribed Document [facility] [place] Family Medicine [address] [place] [address] ProviderHaroldo MD [address] [place], [place] [address] Social History Tobacco Use Types Packs/Day Years Used Date Smoking Tobacco: Never Assessed Sex and Gender Information Value Date Recorded Sex Assigned at Not on file Legal Sex Male 3:45 PM CDT Gender Identity Not on file Sexual Orientation Not on file documented as of this encounter Miscellaneous Notes * Cerner Conversion Note - Haroldo ProviderMD - 10/31/2020 11:42 PM TAX EXPERT ED Assessment Entered On: 11/01/2020 1:33 EST Performed On: 11/01/2020 1:32 EST by Cara Butler, customer relations assistant Quick Look Assessment Level of Consciousness : Alert, Awake Affect/Behavior : Appropriate, Calm, Cooperative Orientation : Oriented x 4 Skin Temperature : Warm Skin Description : Normal for ethnicity Cara Butler Rn - 11/01/2020 1:32 EST ED General-Functional Assess Information Obtained From : Patient Preferred Communication Mode : Verbal Communication Barrier : None Primary Language : Armenian Any Spiritual/Cultural Needs or Requests : No [...] No. (Last Updated: 04/14/2019 14:21:58 EDT by MIOK GALLAGHER, LUIS) Substance Abuse: Drug Use Hx: [...] - 11/01/2020 1:32 EST Electronically signed by [facility] Conversion City Controller Cerner at 01/24/2023 10:42 AM CDT documented in this encounter Plan of Treatment Not on file documented as of this encounter Visit Diagnoses Not on filedocumented in this encounter Care Teams Tax Manager Public Relationship Specialty Start Date End Date Marielos Amaral, CUT OFF OPERATOR SCORER [address] [place] [address] PCP - General Nurse Practitioner 08/18/23 documented as of this encounter
--- OUTSIDE RECORDS SUMMARY | 2025-05-20 11:58 | XMS_ITS | Encounter Summary ---
Author Organization [employer] ([place], [place], [place], [place]) Address [address] [place] [address] Care Team Providers Care Landscape Maintenance Internship Name Role Phone Munir Marielos RESTREPO Primary Care Provider Encounter Details Date Type Department Care Team (Late st Contact Info) Description 04/29/2022 Transcribed Document [facility] [place] [address] [place] [address] ProviderHaroldo MD [address] [place] [address] Social History Tobacco Use Types [...] speak a language other than Bahamian at [facility]? Yes 10/30/2024 Do [...] On: 04/29/2022 14:17 EDT by Kari Chaudhary, Drill Setup Operator Primary Insurance Authorization Authorization and Policy Numbers : Insurance 1 Health Plan: AN[employer]M MEDICARE REPL Policy Number: [id number] Authorization Number: Insurance Primary Name : ANTHEM MEDICARE REPL Policy Number: [id number] Authorization Status-Primary : Awaiting callback Auth/Referral Contact Name-Primary : DC Reference Number-Primary : [id number] Authorized Service Begin Date-Primary : 04/22/2022 EDT Authorization Comments-Primary : Discharge summary as well as continued stay clinical 04/24 - discharge faxed. Historical Authorization Comments-Primary : Comment 1: Request for inpt auth submitted via [facility] Ref# [id number] received;clinicals attached. (Radha Dillon RN 04/23/2022 18:56) Kari Chaudhary, Drill Setup Operator - 04/29/2022 14:17 EDT Electronically signed by Brittany [facility] Conversion Compliance And Control Analyst Cerner at 01/24/2023 10:26 AM CDT documented in this encounter Plan of Treatment Not on file documented as of this encounter Visit Diagnoses Not on filedocumented in this encounter Care Teams Landscape Maintenance Internship Relationship Specialty Start Date End Date Marielos Amaral, PROOF PASSER [address] [place] [address] PCP - General Nurse Practitioner 08/18/23 documented as of this encounter
--- OUTSIDE RECORDS SUMMARY | 2025-05-20 11:58 | XMS_ITS | Encounter Summary ---
Author Organization [employer] ([place], [place], [place], [place]) Address [address] [place] [address] Care Team Providers Care Seismograph Chief Name Role Phone AmaralMarielos KAYE Primary Care Provider Encounter Details Date Type Department Care Team (Late st Contact Info) Description 10/31/2020 Transcribed Document [facility] [place] Family Medicine [address] [place] [address] ProviderHaroldo MD [address] [place], [place] [address] Social History Tobacco Use Types Packs/Day Years Used Date Smoking Tobacco: Never Assessed Sex and Gender Information Value Date Recorded Sex Assigned at Not on file Legal Sex Male 3:45 PM CDT Gender Identity Not on file Sexual Orientation Not on file documented as of this encounter Miscellaneous Notes * Cerner Conversion Note - Historical ProviderMD - 10/31/2020 11:42 PM SENIOR PAINTER Mcc[place] Suicide Severity Rating Scale (C-SSRS) Entered On: 11/01/2020 1:33 EST Performed On: 11/01/2020 1:32 EST by Cara Butler Rn Mccormick Suicide Severity Rating Scale (C-SSRS) CSSRS Past Month Wish to be : No CSSRS Past Month Suicidal Thoughts : No CSSRS Lifetime Suicide Behavior : No Suicide Severity Rating Score : 0 Suicide Severity Rating : No Additional Care Required at this time Cara Butler Rn - 11/01/2020 1:32 EST Electronically signed by Brittany, [facility] Conversion Sanitation Lead Cerner at 01/24/2023 10:39 AM CDT documented in this encounter Plan of Treatment Not on file documented as of this encounter Visit Diagnoses Not on filedocumented in this encounter Care Teams Seismograph Chief Relationship Specialty Start Date End Date Marielos Amaral, KAYE [address] [place] [address] PCP - General Nurse Practitioner 08/18/23 documented as of this encounter
--- OUTSIDE RECORDS SUMMARY | 2025-05-20 11:58 | XMS_ITS | Encounter Summary ---
Author Organization [facility] ([place], [place], [place], [place]) Address [address] [place] [address] Care Team Providers Care Globe Mounter Name Role Phone Munir Marielos RESTREPO Primary Care Provider Encounter Details Date Type Department Care Team (Late st Contact Info) Description 04/26/2022 Transcribed Document [facility] [place] [address] [place] [address] ProviderHaroldo MD [address] [place] [address] Social History Tobacco Use Types [...] Do you speak a language other than [place] at [facility]? Yes 10/30/2024 Do you [...] On: 04/26/2022 14:23 EDT by LEXX LOWRY, RN-Zyglo TechnicianPier Hand Helper Progress Note Discharge Arrangements : Patient Post-Acute Information Patient Name: ZACKARY ANTOINE Gender: Male : 52 Age: 71 Years No Post-Acute Placement(s) Listed No Post-Acute Service(s) Listed No Curaspan Referral(s) Listed Discharge Options Discussed with Patient : DME, Home Health Barriers to Discharge Identified : None identified Barriers to Discharge Unresolved : All resolved Patient Discharge Goal : Home [facility] Quality Web Info Shared w Pt/Fam : No Does the Patient have a Floor to SNF Benefit? : No Is the Patient Meeting Medical Necessity : Yes Physician Agreeable to Move Forward with D/C Plan? : No Did you Attend Multidisciplinary Rounds? : Yes LEXX LOWRY RN-Zyglo Technician - 04/26/2022 14:23 EDT Narrative Progress Note Narrative Progress Note : Met with pt and . Do not have home health preference. Per [facility], do not serve area at this time and will assist in establishing a home health for pt in [facility]. Deny need for equipment. States glucometer is old . Order for new one sent to pharmacy per Dr. Gross. assessment coordinator to see prior to dc. 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 CM attempted to meet with pt this evening for CM eval, but pt sleeping soundly. CM will need to f/u with pt for full CM eval and send referrals as appropriate, as pt will likely benefit from HH vs inpt rehab. TYSHAWN RIGGINS, RN-Zyglo Technician ED - 04/23/22 23:38:53 LEXX LOWRY, RN-Zyglo Technician - 04/26/2022 14:23 EDT documented in this encounter Plan of Treatment Not on file documented as of this encounter Visit Diagnoses Not on filedocumented in this encounter Care Teams Globe Mounter Relationship Specialty Start Date End Date Marielos Amaral APRN [address] [address] PCP - General Nurse Practitioner 08/18/23 documented as of this encounter
--- OUTSIDE RECORDS SUMMARY | 2025-05-20 11:58 | XMS_ITS | Encounter Summary ---
Author Organization [employer] ([place], [place], [place], [place]) Address [address] [place] [address] Care Team Providers Care Supply Chain Procurement Manager Name Role Phone Marielos Amaral KEY ACCOUNT DIRECTOR Primary Care Provider Encounter Details Date Type Department Care Team (Late st Contact Info) Description 10/31/2020 Transcribed Document [facility] [place] [address] [place] [address] ProviderHaroldo MD [address] [place], [place] [address] Social History Tobacco Use Types Packs/Day Years Used Date Smoking Tobacco: Never Assessed Sex and Gender Information Value Date Recorded Sex Assigned at Not on file Legal Sex Male 3:45 PM CDT Gender Identity Not on file Sexual Orientation Not on file documented as of this encounter Miscellaneous Notes * Cerner Conversion Note - Historical ProviderMD - 10/31/2020 11:54 PM RESEARCH SOIL SCIENTIST Patient: ZACKARY ANTOINE Age: 69 years Sex: [...] Cardiac catheterization. hernia repair. Tonsillectomy. Cholecystectomy; (CPT4 24044). Appendectomy. left arm surgery. Coronary stents. EGD - Esophagogastroduodenoscopy (SNOMED CT 1463412773). Comments: 04/12/2020 7:04 AIMEET - Roxana Brady RN with radio frequency ablation CABG x 4 - Coronary artery bypass grafts x 4 (SNOMED CT 079401094)., Reviewed as documented in chart. Family history: [...] EST Height Source Stated Height Entry Format Nottingham Height/Length, ANDORRAN (ft) 5 ft Height/Length ANDORRAN 9 Inch CLINICALHEIGHT 175.26 cm [place] Body Weight 69.73 kg Weight Source, ED Critical estimated dosing weight Weight Entry Format Nottingham Weight Macedonian lb 197 lb CLINICALWEIGHT 89.55 kg Body [...] rhythm, No ST changes, no ectopy, normal IA & QRS intervals, EP Interp. Results review: [...] 16.3 % LOW Lymph # 1.55 x10(3)/uL [place] % 9.7 % HI [place] # 0.92 K/uL Eos % 2.2 % [...] 1:58 EST, Discharge to: Home. Prescriptions: Prescription Plumber Gasfitter Pharmacy: bumetanide 1 mg oral tablet (Prescribe): [...] filedocumented in this encounter Care Teams Supply Chain Procurement Manager Relationship Specialty Start Date End Date Marielos Amaral APRN [address] [address] PCP - General Nurse Practitioner 08/18/23 documented as of this encounter
--- OUTSIDE RECORDS SUMMARY | 2025-05-20 11:58 | XMS_ITS | Encounter Summary ---
Author Organization [employer] ([place], [place], [place], [place]) Address [address] [place] [address] Care Team Providers Care Transcribing Operators Supervisor Name Role Phone Munir Brii RESTREPO Primary Care Provider Encounter Details Date Type Department Care Team (Late st Contact Info) Description 04/26/2022 Transcribed Document [facility] [place] [address] [place] [address] ProviderHaroldo MD [address] [place] [address] Social History Tobacco Use Types [...] speak a language other than Cymro at [facility]? [...] on filedocumented in this encounter Care Teams Transcribing Operators Supervisor Relationship Specialty Start Date End Date Brii Amaral APRN [address] [address] PCP - General Nurse Practitioner 08/18/23 documented as of this encounter
--- OUTSIDE RECORDS SUMMARY | 2025-05-20 11:58 | XMS_ITS | Encounter Summary ---
Author Organization [employer] ([place], [place], [place], [place]) Address [address] [place] [address] Care Team Providers Care Tow Boat Captain Name Role Phone Munir Marielos RESTREPO Primary Care Provider Encounter Details Date Type Department Care Team (Late st Contact Info) Description 04/29/2022 Transcribed Document [facility] [place] [address] [place] [address] ProviderHaroldo MD [address] [place] [address] Social History Tobacco Use Types [...] speak a language other than Spanish at [facility]? Yes 10/30/2024 Do [...] Health Plan: ANTHEM MEDICARE REPL Policy Number: [id number] Authorization Number: Insurance Primary Name : ANTHEM MEDICARE REPL Policy Number: [id number] Authorization Status-Primary : Awaiting callback Auth/Referral Contact Name-Primary : DC Reference Number-Primary : [id number] Authorized Service Begin Date-Primary : 04/22/2022 EDT Authorization Comments-Primary : Remains pending per [employer]. Historical Authorization Comments-Primary : Comment 1: Discharge summary as well as continued stay clinical 04/24 - discharge faxed. (Kari Chaudhary, Survey Rodman 04/29/2022 14:17) Comment 2: Request for inpt auth submitted via [employer] Ref# [id number] received;clinicals attached. (Radha Dillon RN 04/23/2022 18:56) Vanessa Pimentel SUPV-QUALITY - 04/29/2022 14:55 EDT documented in this encounter Plan of Treatment Not on file documented as of this encounter Visit Diagnoses Not on filedocumented in this encounter Care Teams Tow Boat Captain Relationship Specialty Start Date End Date Marielos Amaral, MONTESSORI PROGRAM DIRECTOR [address] [address] PCP - General Nurse Practitioner 08/18/23 documented as of this encounter
--- OUTSIDE RECORDS SUMMARY | 2025-05-20 11:59 | XMS_ITS | Encounter Summary ---
Author Organization [employer] ([place], [place], [place], [place]) Address [address] [place] [address] Care Team Providers Care Circulation Clerk Name Role Phone Munir Marielos RESTREPO Primary Care Provider Encounter Details Date Type Department Care Team (Late st Contact Info) Description 04/25/2022 Transcribed Document [facility] [place] Family Medicine [address] [place] [address] ProviderHaroldo MD [address] [place] [address] Social History Tobacco Use Types Packs/Day Years Used Date Smoking Tobacco: Never Assessed Utilities Answer Date Recorded In the past 12 months, has t he electric, gas, oil, or water company threatened to shut off services in your home? No 10/30/2024 Interpersonal Safety Answer Date Record ed How often does anyone, zehra havrey family and friends, physically hurt you? Never [...] a language other than Hong Konger at [facility]? Yes 10/30/2024 Do [...] On: 04/25/2022 16:15 EDT by LEXX LOWRY, RN-QuoterInspector Semiconductor Wafer Progress Note Discharge Arrangements : Patient Post-Acute Information Patient Name: ZACKARY ANTOINE Gender: Male : 52 Age: 71 Years No Post-Acute Placement(s) Listed No Post-Acute Service(s) Listed No Curaspan Referral(s) Listed Barriers to Discharge Identified : Clinical Condition of Patient Barriers to Discharge Unresolved : Clinical Condition of Patient Patient Discharge Goal : Home [facility] Quality Web Info Shared w Pt/Fam : No Does the Patient have a Floor to SNF Benefit? : No Is the Patient Meeting Medical Necessity : Yes Physician Agreeable to Move Forward with D/C Plan? : Yes Did you Attend Multidisciplinary Rounds? : Yes LEXX LOWRY, RN-Quoter - 04/25/2022 16:15 EDT Narrative Progress Note Narrative Progress Note : HD # 3 with ELOS of 3 days RRS moderate risk Acute on chronic kidney failure Historical Progress Note : Dx: a/c renal failure poa with metabolic acidosis, UTI, hyponatremia HPI: presents to 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 CM attempted to meet with pt this evening for CM eval, but pt sleeping soundly. CM will need to f/u with pt for full CM eval and send referrals as appropriate, as pt will likely benefit from HH vs inpt rehab. TYSHAWN RIGGINS, RN-Quoter ED - 04/23/22 23:38:53 LEXX LOWRY, RN-Quoter - 04/25/2022 16:15 EDT documented in this encounter Plan of Treatment Not on file documented as of this encounter Visit Diagnoses Not on filedocumented in this encounter Care Teams Circulation Clerk Relationship Specialty Start Date End Date Marielos Amaral APRN [address] [address] PCP - General Nurse Practitioner 08/18/23 documented as of this encounter
--- OUTSIDE RECORDS SUMMARY | 2025-05-20 11:59 | XMS_ITS | Encounter Summary ---
Author Organization [email or web address] ([place], [place], [place], [place]) Address [address] [place] [address] Care Team Providers Care Kick Press Setter Name Role Phone Marielos Amaral APRN Primary Care Provider Encounter Details Date Type Department Care Team (Late st Contact Info) Description 02/07/2019 Transcribed Document [facility] [place] [address] [place] [address] ProviderHaroldo MD [address] [place] [address] Social History Tobacco Use Types Packs/Day Years [...] Plan: [employer] GOLD PLUS HMO Policy Number: [id number] Authorization Number: PENDING IP Insurance Primary Name : [employer] Choice Authorization Status-Primary : Awaiting callback Authorized Service Begin Date-Primary : 02/05/2019 EDT Authorization Comments-Primary : setup case for IP on [employer]. faxed clinicals via [employer]. Historical Authorization Comments-Primary : Comment 1: setup on [employer] obs approved. (GEGE JUÁREZ RN 02/06/2019 08:52) GEGE JUÁREZ RN - 02/07/2019 11:56 EDT Electronically signed by Brittany [facility] Conversion Nursing Education Consultant Cerner at 01/24/2023 10:27 AM CDT documented in this encounter Plan of Treatment Not on file documented as of this encounter Visit Diagnoses Not on filedocumented in this encounter Care Teams Kick Press Setter Relationship Specialty Start Date End Date Marielos Amaral, BOX TOE CEMENTER [address] [id number] PCP - General Nurse Practitioner 08/18/23 documented as of this encounter
--- OUTSIDE RECORDS SUMMARY | 2025-05-20 11:59 | XMS_ITS | Encounter Summary ---
Author Organization [employer] ([place], [place], [place], [place]) Address [address] [place] [address] Care Team Providers Care Pharmaceutical Assistant Name Role Phone Marielos Amaral KAYE Primary Care Provider Encounter Details Date Type Department Care Team (Late st Contact Info) Description 02/08/2019 Transcribed Document [facility] [place] Family Medicine [address] [place] [address] ProviderHaroldo MD [address] [place] [address] Social History Tobacco Use Types Packs/Day Years [...] on filedocumented in this encounter Care Teams Pharmaceutical Assistant Relationship Specialty Start Date End Date Amaral, Marielos, LIGHT CLEANER [address] [place] [address] PCP - General Nurse Practitioner 08/18/23 documented as of this encounter
--- OUTSIDE RECORDS SUMMARY | 2025-05-20 11:59 | XMS_ITS | Encounter Summary ---
Author Organization [employer] ([place], [place], [place], [place]) Address [address] [place] [address] Care Team Providers Care Retread Technician Name Role Phone Marielos Amaral KAYE Primary Care Provider Encounter Details Date Type Department Care Team (Late st Contact Info) Description 02/08/2019 Transcribed Document [facility] [place] [address] [place] [address] ProviderHaroldo MD [address] [place] [address] Social History Tobacco Use Types Packs/Day Years [...] On: 02/08/2019 11:45 EDT by GERALDINE BROWN, RN-Platform Mill Supervisor Initial Assessment I Previously Documented Living [...] Listed? : Yes Medical Durable Power of Bung Sewer Name : No Legal Guardian : No Is Guardianship Needed : No GERALDINE BROWN RN-Platform Mill Supervisor - 02/08/2019 11:45 EDT Initial Assessment II Sensory and Motor Deficits : None Current Home Treatments and Equipment : Bedside commode, Cane, CPAP, Shower chair, Walker Does the Patient have a Floor to SNF Benefit? : Yes GERALDINE BROWN RN-Platform Mill Supervisor - 02/08/2019 11:45 EDT Discharge Needs I Anticipated Discharge Date : 02/09/2019 EDT Anticipated Discharge To, CM : Other: outpatient physical therapy at [facility] Current Home Treatment/Equipment : Current Home Treatment/Equipment No qualifying data available. Post Acute/Home Treatments : None GERALDINE BROWN RN-Platform Mill Supervisor - 02/08/2019 11:45 EDT Discharge Needs II Professional Skilled Services : Professional Skilled Services No qualifying data available. Services and Community Resources : Physical Therapy Needs Assistance with Transportation : No Discharge Options Discussed with Patient : Outpatient services, Short term rehabilitation GERALDINE BROWN RN-Platform Mill Supervisor - 02/08/2019 11:45 EDT Narrative Note Narrative Note : Met with pt and his . Pt states that he lives with his . He states that he has lots of equipement at home but does not use it currently. He states that he has a CPAP but is not currently wearing it due to a place on his head. He states that the [employer] is trying different masks to find one that will work. Discussed discharge plan with pt and his . Pt and request outpatient PT at [facility] in [place]. Pt's states that is where she currently goes and she would like pt to go as well. She wants to schedule pt's first appointment. Pt and deny any other discharge needs at this time. GERALDINE BROWN RN-Platform Mill Supervisor - 02/08/2019 11:45 EDT Electronically signed by Renetta Soto Conversion Caustic Cresylate Shift Superintendent Pennyner at 01/24/2023 10:20 AM CDT documented in this encounter Plan of Treatment Not on file documented as of this encounter Visit Diagnoses Not on filedocumented in this encounter Care Teams Retread Technician Relationship Specialty Start Date End Date Marielos Amaral APRN [address] [address] PCP - General Nurse Practitioner 08/18/23 documented as of this encounter
--- OUTSIDE RECORDS SUMMARY | 2025-05-20 11:59 | XMS_ITS | Encounter Summary ---
Author Organization [employer] ([place], [place], [place], [place]) Address [address] [place] [address] Care Team Providers Care Sales Hunter Name Role Phone Marielos Amaral KAYE Primary Care Provider [phone] Encounter Details Date Type Department Care Team (Late st Contact Info) Description 02/06/2019 Transcribed Document [facility] [place] Medicine [address] [place] [address] ProviderHaroldo MD [address] [place] [address] Social History Tobacco Use Types Packs/Day Years [...] filedocumented in this encounter Care Teams Sales Hunter Relationship Specialty Start Date End Date Marielos Amaral, FUR GLOSSER [address] [place] [address] PCP - General Nurse Practitioner 08/18/23 documented as of this encounter
--- OUTSIDE RECORDS SUMMARY | 2025-05-20 11:59 | XMS_ITS | Encounter Summary ---
Author Organization [employer] ([place], [place], [place], [place]) Address [address] [place] [address] Care Team Providers Care Home Office Claims Examiner Name Role Phone Munir Brii RESTREPO Primary Care Provider Encounter Details Date Type Department Care Team (Late st Contact Info) Description 04/26/2022 Transcribed Document [facility] [place] [address] [place] [address] ProviderHaroldo MD [address] [place] [address] Social History Tobacco Use Types [...] Do you speak a language other than Czech at [facility]? Yes 10/30/2024 Do you want help [...] Encounter/Past 24 Hours) Creatinine Level 2.50 mg/dL DC 04/26/2022 07:49 eGFR 31 mL/min/1.73m2 LOW 04/26/2022 07:49 Bun/Creatinine 14.8 04/26/2022 07:49 eGFR NonAfrican 26 mL/min/1.73m2 LOW 04/26/2022 07:49 Sodium Level 134 mmol/L LOW 04/26/2022 07:49 Potassium Level 4.9 mmol/L 04/26/2022 07:49 Chloride Level 106 mmol/L 04/26/2022 07:49 Carbon Dioxide Level 22 mmol/L 04/26/2022 07:49 Anion Gap 11 04/26/2022 07:49 Blood Urea Nitrogen 37 mg/dL DC 04/26/2022 07:49 Glucose Level 180 mg/dL DC 04/26/2022 07:49 Calcium Level 8.9 mg/dL 04/26/2022 [...] with right sided weakness who presented to [facility] on 04/22 for evaluation of weakness. [...] on filedocumented in this encounter Care Teams Home Office Claims Examiner Relationship Specialty Start Date End Date Brii Amaral, VETERANS SERVICES SPECIALIST [address] [place] [address] PCP - General Nurse Practitioner 08/18/23 documented as of this encounter
--- OUTSIDE RECORDS SUMMARY | 2025-05-20 11:59 | XMS_ITS | Encounter Summary ---
Author Organization [employer] ([place], [place], [place], [place]) Address [address] [place] [address] Care Team Providers Care Sales Ledger Administrator Name Role Phone Munir Marielos RESTREPO Primary Care Provider [phone] Encounter Details Date Type Department Care Team (Late st Contact Info) Description 04/26/2022 Transcribed Document [facility] [place] [address] [place] [address] ProviderHaroldo MD [address] [place] [address] Social History Tobacco Use Types [...] speak a language other than Ivorian at [facility]? Yes 10/30/2024 [...] On: 04/26/2022 12:07 EDT by Zuly Gandara Rn-Mailroom Messenger Final Discharge Planning Discharge Arrangements : Patient Post-Acute Information Patient Name: ZACKARY ANTOINE Gender: Male : [birth year] Age: 71 Years No Post-Acute Placement(s) Listed No Post-Acute Service(s) Listed No [place] Referral(s) Listed Discharge To Care Management : Home/Residential/Care Home or Self Care - Zuly Gandara Rn-Mailroom Messenger - 05/01/2022 12:07 EDT Final Narrative Note Final Narrative Note : DISPOSITION: Home without home health due to lack of coverage in patient's area. CM utilized [facility] Home Health's resources/assistance in attempting to place patient, and ultimately all possible agencies declined and the patient was not able to receive services. Agencies who declined include : [facility], [place], [facility], [facility], [facility], [facility], [facility] and [facility]. Zuly Gandara Rn-Mailroom Messenger - 05/01/2022 12:07 EDT documented in this encounter Plan of Treatment Not on file documented as of this encounter Visit Diagnoses Not on filedocumented in this encounter Care Teams Sales Ledger Administrator Relationship Specialty Start Date End Date Marielos Amaral APRN [address] [id number] PCP - General Nurse Practitioner 08/18/23 documented as of this encounter
--- OUTSIDE RECORDS SUMMARY | 2025-05-20 11:59 | XMS_ITS | Encounter Summary ---
Author Organization [employer] ([place], [place], [place], [place]) Address [address] [place] [address] Care Team Providers Care Asic Design Engineer Name Role Phone Marielos Amaral APRN Primary Care Provider Encounter Details Date Type Department Care Team (Late st Contact Info) Description 02/07/2019 Transcribed Document [facility] Radiology [address] [phone] Fidencio Tolliver MD [address] [place] [address] [address] [place] [address] Social History Tobacco Use Types Packs/Day Years [...] risk factors. CODE STATUS: Full code CONSULTS: [facility] WORKUP / PROCEDURES: CT Head WO [...] approximately 50% stenosis of theproximal basilar artery. janitorial account manager show mild stenosis proximally. IMPRESSION: 1. 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 Anterior circulation intact.3. Mild bilateral GAS ANALYST disease. This study was performed using [...] mg, Oral, BID Eliquis: 5 mg, Oral, [id number] Flomax: 0.4 mg, Oral, Daily MiraLax: 17 [...] Results Review Radiology Results (Last 48 hours) [id number] -- 02/05/2019 23:59 CT Head WO (02/05/2019 [...] approximately 50% stenosis of theproximal basilar artery. janitorial account manager show mild stenosis proximally. IMPRESSION: 1. 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 Anterior circulation intact.3. Mild bilateral GAS ANALYST disease. This study was performed using [...] looking for possible rehabilitation placement will consult rehabilitation case coordinator. Follow with neurology and cardiology recommendations. documented in this encounter Plan of Treatment Not on file documented as of this encounter Visit Diagnoses Not on filedocumented in this encounter Care Teams Asic Design Engineer Relationship Specialty Start Date End Date Marielos Amaral, COMB FIXER [address] [address] PCP - General Nurse Practitioner 08/18/23 documented as of this encounter
--- OUTSIDE RECORDS SUMMARY | 2025-05-20 11:59 | XMS_ITS | Clinical Summary ---
Author Organization [facility] Address [address] [place] [address] Phone Care Team Providers Care Oracle Hyperion Consultant Name Role Phone Unavailable Unavailable Conditions or Problems No information available. Medications No information available. Medications Administered No information available. Allergies, Adverse Reactions, Alerts No information available. Results No information available. Plan of Care No information available. Procedures No information available. Vital Signs No information available. Immunizations No information available. Advance Directives No information available.
--- OUTSIDE RECORDS SUMMARY | 2025-05-20 11:59 | XMS_ITS | Encounter Summary ---
Author Organization [employer] ([place], [place], [place], [place]) Address [address] [place] [address] Care Team Providers Care Systems Technician Name Role Phone Munir Marielos RESTREPO Primary Care Provider Encounter Details Date Type Department Care Team (Late st Contact Info) Description 04/26/2022 Transcribed Document [facility] [place] Medicine [address] [place] [address] ProviderHaroldo MD [address] [place] [address] Social History Tobacco Use Types [...] Do you speak a language other than Finnish at [facility]? Yes 10/30/2024 Do you want help [...] these instructions at home: Medicines ??? Take kddl-lcr-cgycdaw and prescription medicines only as told by [...] important. Where to find more information ??? [employer] Association of Kidney Patients: www.aakp.org ??? National Kidney Foundation: www.kidney.org ??? [employer] Kidney Fund: www.akfinc.org ??? [facility] [...] provider. Document Revised: 08/01/2020 Document Reviewed: 08/01/2020 [employer] Patient Education ? 2020 Amazing Photo Letters. documented in this encounter Plan of Treatment Not on file documented as of this encounter Visit Diagnoses Not on filedocumented in this encounter Care Teams Systems Technician Relationship Specialty Start Date End Date Marielos Amaral, KAYE [address] [place] [address] PCP - General Nurse Practitioner 08/18/23 documented as of this encounter
--- OUTSIDE RECORDS SUMMARY | 2025-05-20 11:59 | XMS_ITS | Encounter Summary ---
Author Organization [employer] ([place], [place], [place], [place]) Address [address] [place] [address] Care Team Providers Care Director Hydrogen Storage Engineering Name Role Phone Munir Marielos RESTREPO Primary Care Provider Encounter Details Date Type Department Care Team (Late st Contact Info) Description 04/25/2022 Transcribed Document [facility] [place] [address] [place] [address] ProviderHaroldo MD [address] [place] [address] Social History Tobacco Use Types [...] speak a language other than Haitian at [facility]? Yes 10/30/2024 Do you want [...] Other (See Comment) Eliquis: 2.5 mg, Oral, [id number] Flomax: 0.4 mg, Oral, Daily Lokelma: 15 Gram, Oral, 1-Time Metoprolol Succinate ER: 50 mg, Oral, Daily Normal Saline 1,000 mL: 100 mL/Hr, IntraVENous Rocephin: 1 Gram, 100 mL/Hr, IV Piggyback, [id number] Tylenol: 650 mg, Oral, Q4H, PRN: Pain [...] mg tab 2.5 mg 1 Tab, Oral, [id number] atorvastatin 40 mg tab 40 mg 1 Tab, Oral, At Bedtime cefTRIAXone 1 Gram, IV Piggyback, [id number] cholecalciferol 1,000 unit tab 1,000 Units 1 [...] list: Medical Atrial fibrillation / SNOMED CT 95678106 / Confirmed CAD - Coronary artery disease / SNOMED CT 8250748988 / Confirmed Cardiomyopathy / SNOMED CT 680523726 / Confirmed Acute cerebrovascular accident (CVA) / SNOMED CT 953789893 / Confirmed History of obstructive sleep apnea / IMO [id number] / Confirmed HLD - Hyperlipidemia / SNOMED CT 614333812 / Confirmed HTN - Hypertension / SNOMED CT 4004666025 / Confirmed Type 2 diabetes mellitus / SNOMED CT 543455909 / Confirmed, Active Problems (20) Acute cerebrovascular [...] Gastrointestinal: Soft, Non-tender, Non-distended. Integumentary: Warm, Dry, [place]. Neurologic: Alert, Oriented, No focal deficits. Psychiatric: [...] renal diet. - No emergent need of FELLMONGERY WORKER. Will follow. If renal function continues to improve tomorrow with K within normal limits - Can be discharge. Follow up with LAMBERTO in 2 weeks @ [facility] with renal function panel and UA. Electronically signed by Renetta Soto Conversion Supervisor Stitching Department Cerner at 01/24/2023 10:27 AM CDT documented in this encounter Plan of Treatment Not on file documented as of this encounter Visit Diagnoses Not on filedocumented in this encounter Care Teams Director Hydrogen Storage Engineering Relationship Specialty Start Date End Date Marielos Amaral, FERRY TERMINAL AGENT [address] [address] PCP - General Nurse Practitioner 08/18/23 documented as of this encounter
--- OUTSIDE RECORDS SUMMARY | 2025-05-20 11:59 | XMS_ITS | Encounter Summary ---
Author Organization [employer] ([place], [place], [place], [place]) Address [address] [place] [address] Care Team Providers Care Pie Dough Roller Name Role Phone Marielos Amaral KAYE Primary Care Provider Encounter Details Date Type Department Care Team (Late st Contact Info) Description 02/07/2019 Transcribed Document [facility] [place] [address] [place] [address] ProviderHaroldo MD [address] [place] [address] Social History Tobacco Use Types Packs/Day Years [...] on filedocumented in this encounter Care Teams Pie Dough Roller Relationship Specialty Start Date End Date Amaral, Marielos, YARN HAULER [address] [place] [address] PCP - General Nurse Practitioner 08/18/23 documented as of this encounter
--- OUTSIDE RECORDS SUMMARY | 2025-05-20 12:00 | XMS_ITS | Encounter Summary ---
Author Organization [employer] ([place], [place], [place], [place]) Address [address] [place] [address] Care Team Providers Care Concrete Analyst Name Role Phone Marielos Amaral KAYE Primary Care Provider Encounter Details Date Type Department Care Team (Late st Contact Info) Description 02/06/2019 Transcribed Document [facility] [place] [facility] [place] [address] ProviderHaroldo MD [address] [place] [address] Social History Tobacco Use Types Packs/Day Years [...] were negative according to endorsement from physician assistant professor of theater ER. Patient was _seen in _ coordination [...] report available, but per endorsement from physician assistant professor of theater, they were all negative without any obstructive [...] signed by Brittany, [facility] Conversion Driver License Examiner Cerner at 01/24/2023 10:41 AM CDT documented in this encounter Plan of Treatment Not on file documented as of this encounter Visit Diagnoses Not on filedocumented in this encounter Care Teams Concrete Analyst Relationship Specialty Start Date End Date Marielos Amaral, KAYE [address] [id number] PCP - General Nurse Practitioner 08/18/23 documented as of this encounter
--- OUTSIDE RECORDS SUMMARY | 2025-05-20 12:00 | XMS_ITS | Encounter Summary ---
Author Organization [employer] ([place], [place], [place], [place]) Address [address] [place] [address] Care Team Providers Care Body Man Name Role Phone Marielos Amaral KAYE Primary Care Provider Encounter Details Date Type Department Care Team (Late st Contact Info) Description 02/06/2019 Transcribed Document [facility] [place] Family Medicine [address] [place] [address] ProviderHaroldo MD [address] [place] [address] Social History Tobacco Use Types Packs/Day Years [...] 02/06/2019 11:33 EDT Electronically signed by Brittany [facility] Conversion Interstate Bus Driver Cerner at 01/24/2023 10:45 AM CDT documented in this encounter Plan of Treatment Not on file documented as of this encounter Visit Diagnoses Not on filedocumented in this encounter Care Teams Body Man Relationship Specialty Start Date End Date Marielos Amaral, KAYE [address] [id number] PCP - General Nurse Practitioner 08/18/23 documented as of this encounter
--- OUTSIDE RECORDS SUMMARY | 2025-05-20 12:00 | XMS_ITS | Encounter Summary ---
Author Organization [employer] ([place], [place], [place], [place]) Address [address] [place] [address] Care Team Providers Care Community Organization Worker Name Role Phone Marielos Amaral KAYE Primary Care Provider Encounter Details Date Type Department Care Team (Late st Contact Info) Description 02/06/2019 Transcribed Document [facility] [place] [address] [place] [address] ProviderHaroldo MD [address] [place] [address] Social History Tobacco Use Types Packs/Day Years [...] On: 02/06/2019 12:27 EDT by KELLY CROUCH, SKATE MAKER General Information Visit Type, SKATE MAKER : Initial evaluation Patient Orders : Speech [...] Admission Date/Time: 02/05/19 23:59:00 Medical Chart Reviewed, SKATE MAKER : Yes Personal Devices : Personal Devices No Devices Recorded Assistive Devices : Assistive Devices No Devices Recorded Active Diagnoses : 02/05/2019 00:00 Ataxia, unspecified 02/05/2019 00:00 Weakness Therapy Diagnosis, SKATE MAKER : oropharyngeal swallow seemingly within functional limits Previous Speech/Language Evaluations : N/A Previous Swallow Precautions : N/A Previous Cognitive Evaluations : N/A Diet/Intake Prior to Current Admission : Regular/thin Diet/Intake During Current Admission : Regular/thin Intubation Comment, SKATE MAKER : No intubation on this admit Vital [...] 12:27 EDT General Status Patient Received Status, SKATE MAKER : Sitting edge of bed Patient Left Status, SKATE MAKER : Sitting edge of bed KELLY CROUCH [...] Oral Mechanism for Daily Living : Intact SKATE MAKER Cough : Strong Facial Appearance: : Symmetrical [...] with thin. No further dysphagia services warranted, SKATE MAKER will sign off. KELLY CROUCH SKATE MAKER - 02/06/2019 12:27 EDT Swallow Recommendations Recommended Diet Type, SwRec : Regular Recommended Liquid Diet, SwRec : Thin Feeding Presentation Style, SwRec : No restrictions Swallow Position, SwRec : Upright 90 degrees Supervision Level w/Meals, SwRec : Independent, complete Recommended Med Present, SwRec : Whole, With thin liquid KELLY CROUCH SKATE MAKER - 02/06/2019 12:27 EDT Therapy Indication Assessment SKATE MAKER Indicated : No SKATE MAKER Not Indicated : At prior level of function, No skilled services indicated KELLY CROUCH SKATE MAKER - 02/06/2019 12:27 EDT Education Barriers To Learning : None evident Individuals Taught : Patient, Spouse Readiness to Learn : Cooperative Readiness to Learn : Explanation KELLY CROUCH SLP - 02/06/2019 12:27 EDT SKATE MAKER Education Assessment Grid 1 Diet Recommendation : Verbalizes understanding Evaluation Results : Verbalizes understanding KELLY CROUCH, SKATE MAKER - 02/06/2019 12:[address] [facility] Evaluation Swallowing Function : 1 KELLY CROUCH, SKATE MAKER - 02/06/2019 12:27 EDT Electronically signed by [facility] Conversion Assistant Professor Of Business Cerner at 01/24/2023 10:42 AM CDT documented in this encounter Plan of Treatment Not on file documented as of this encounter Visit Diagnoses Not on filedocumented in this encounter Care Teams Community Organization Worker Relationship Specialty Start Date End Date Marielos Amaral, STATOR WINDER [address] [place] [address] PCP - General Nurse Practitioner 08/18/23 documented as of this encounter
--- OUTSIDE RECORDS SUMMARY | 2025-05-20 12:00 | XMS_ITS | Encounter Summary ---
Author Organization [employer] ([place], [place], [place], [place]) Address [address] [place] [address] Care Team Providers Care Inspector Bicycle Name Role Phone Marielos Amaral KAYE Primary Care Provider Encounter Details Date Type Department Care Team (Late st Contact Info) Description 02/06/2019 Transcribed Document [facility] [place] Family Medicine [address] [place] [address] ProviderHaroldo MD [address] [place] [address] Social History Tobacco Use Types Packs/Day Years [...] 02/06/2019 8:02 EDT Electronically signed by Brittany [facility] Conversion Digital Sales Planner [employer] at 01/24/2023 10:45 AM CDT documented in this encounter Plan of Treatment Not on file documented as of this encounter Visit Diagnoses Not on filedocumented in this encounter Care Teams Inspector Bicycle Relationship Specialty Start Date End Date Marielos Amaral, FORGE OPERATOR HELPER [address] [place] [address] PCP - General Nurse Practitioner 08/18/23 documented as of this encounter
--- OUTSIDE RECORDS SUMMARY | 2025-05-20 12:00 | XMS_ITS | Encounter Summary ---
Author Organization [employer] ([place], [place], [place], [place]) Address [address] [place] [address] Care Team Providers Care Demand Planner Name Role Phone AmaralMarielos roque KAYE Primary Care Provider [phone] Encounter Details Date Type Department Care Team (Late st Contact Info) Description 02/06/2019 Transcribed Document [facility] [place] [address] [place] [address] ProviderHaroldo MD [address] [place] [address] Social History Tobacco Use Types Packs/Day Years [...] on filedocumented in this encounter Care Teams Demand Planner Relationship Specialty Start Date End Date Marielos Amaral, BANK GUARD [address] [place] [address] PCP - General Nurse Practitioner 08/18/23 documented as of this encounter
--- OUTSIDE RECORDS SUMMARY | 2025-05-20 12:00 | XMS_ITS | Encounter Summary ---
Author Organization [employer] ([place], [place], [place], [place]) Address [address] [place] [address] Care Team Providers Care Manager Group Name Role Phone Marielos Amaral KAYE Primary Care Provider Encounter Details Date Type Department Care Team (Late st Contact Info) Description 02/06/2019 Transcribed Document [facility] [place] [address] [place] [address] ProviderHaroldo MD [address] [place] [address] Social History Tobacco Use Types Packs/Day Years [...] JEANNETTE BROWER, RAMONA General Information Visit Type, UTILITIES SERVICE INVESTIGATOR : Initial evaluation Patient Orders : Speech Language Pathology Evaluation and Treatment -111 Start: 02/06/19 0:17:00 EDT, Routine, For Speech Language Cognitive Eval and Treat - FIORELLA OWENS MD-INT Admission Date : Admission Date/Time: 02/05/19 23:59:00 Medical Chart Reviewed, UTILITIES SERVICE INVESTIGATOR : Yes Personal Devices : Personal Devices No Devices Recorded Assistive Devices : Assistive Devices No Devices Recorded Active Diagnoses : 02/05/2019 00:00 Ataxia, unspecified 02/05/2019 00:00 Weakness Therapy Diagnosis, UTILITIES SERVICE INVESTIGATOR : Cognition WNL Previous Speech/Language Evaluations : N/A Previous Swallow Precautions : Bedside this admit, recs for reg/thin Previous Cognitive Evaluations : N/A Diet/Intake Prior to Current Admission : Regular/thin Diet/Intake During Current Admission : Regular/thin Intubation Comment, UTILITIES SERVICE INVESTIGATOR : No intubation on this admit Vital [...] 11:51 EDT General Status Patient Received Status, UTILITIES SERVICE INVESTIGATOR : Long sitting in bed Patient Left Status, UTILITIES SERVICE INVESTIGATOR : Long sitting in bed JEANNETTE BROWER [...] 11:51 EDT Evaluation Methods Types of Evaluation, UTILITIES SERVICE INVESTIGATOR : Informal JEANNETTE BROWER SLP - 02/07/2019 11:51 EDT [facility] Impressions Impressions, Speech/Lang/Cog : No evidence of speech/language or cognitive impairment present [facility] Overall Impressions : 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 Informal cognitive linguistic evaluation completed this date. The pt presents with no overt deficits and reports no concerns at this time. No further f/u indicated. JEANNETTE BROWER SLP - 02/07/2019 11:51 EDT Therapy Indication Assessment UTILITIES SERVICE INVESTIGATOR Indicated : No UTILITIES SERVICE INVESTIGATOR Not Indicated : At prior level of function, No skilled services indicated UTILITIES SERVICE INVESTIGATOR Interdisciplinary Consultation Needs : No JEANNETTE BROWER SLP - 02/07/2019 11:51 EDT Education Barriers To Learning : None evident Individuals Taught : Patient Readiness to Learn : Cooperative Learning Style Preferences Patient : None JEANNETTE BROWER SLP - 02/07/2019 11:51 EDT UTILITIES SERVICE INVESTIGATOR Education Assessment Grid 2 Review Results of Evaluations : Verbalizes understanding JEANNETTE BROWER SLP - 02/07/2019 11:[address] [facility] UTILITIES SERVICE INVESTIGATOR Charges Evaluation of Speech Production & Language : 1 JEANNETTE BROWER SLP - 02/07/2019 11:51 EDT documented in this encounter Plan of Treatment Not on file documented as of this encounter Visit Diagnoses Not on filedocumented in this encounter Care Teams Manager Group Relationship Specialty Start Date End Date Marielos Amaral, GAMING FLOOR SUPERVISOR [address] [place] [address] PCP - General Nurse Practitioner 08/18/23 documented as of this encounter
--- OUTSIDE RECORDS SUMMARY | 2025-05-20 12:00 | XMS_ITS | Encounter Summary ---
Author Organization [employer] ([place], [place], [place], [place]) Address [address] [place] [address] Care Team Providers Care Manager Business Management Name Role Phone Marielos Amaral APRN Primary Care Provider Encounter Details Date Type Department Care Team (Late st Contact Info) Description 02/06/2019 Transcribed Document [facility] Radiology [address] [phone] Fidencio Tolliver MD [address] [place] [address] [address] [place] [address] Social History Tobacco Use Types Packs/Day Years [...] risk factors. CODE STATUS: Full code CONSULTS: [facility] WORKUP / PROCEDURES: HOSPITAL FOLLOWUP: 02/06 [...] Results Review Radiology Results (Last 48 hours) [id number] -- 02/05/2019 23:59 CT Head WO (02/05/2019 [...] approximately 50% stenosis of theproximal basilar artery. clinical rn manager show mild stenosis proximally. IMPRESSION: 1. 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 Anterior circulation intact.3. Mild bilateral LAMP DECORATOR disease. This study was performed using dose [...] filedocumented in this encounter Care Teams Manager Business Management Relationship Specialty Start Date End Date Marielos Amaral, KAYE [address] [place] [address] PCP - General Nurse Practitioner 08/18/23 documented as of this encounter
--- OUTSIDE RECORDS SUMMARY | 2025-05-20 12:01 | XMS_ITS | Encounter Summary ---
Author Organization [employer] ([place], [place], [place], [place]) Address [address] [place] [address] Care Team Providers Care Spray Gun Striper Name Role Phone Marielos Amaral TATTOO AND BODY ARTIST Primary Care Provider Encounter Details Date Type Department Care Team (Late st Contact Info) Description 02/06/2019 Transcribed Document [facility] [place] [address] [place] [address] ProviderHaroldo MD [address] [place] [address] Social History Tobacco Use Types Packs/Day Years [...] ANABELA WHEELER RN - 02/06/2019 9:37 EDT documented in this encounter Plan of Treatment Not on file documented as of this encounter Visit Diagnoses Not on filedocumented in this encounter Care Teams Spray Gun Striper Relationship Specialty Start Date End Date Marielos Amaral, KAYE [address] [phone] PCP - General Nurse Practitioner 08/18/23 documented as of this encounter
--- OUTSIDE RECORDS SUMMARY | 2025-05-20 12:01 | XMS_ITS | Encounter Summary ---
Author Organization [employer] ([place], [place], [place], [place]) Address [address] [place] [address] Care Team Providers Care Communications Project Manager Name Role Phone Marielos Amaral KAYE Primary Care Provider Encounter Details Date Type Department Care Team (Late st Contact Info) Description 02/06/2019 Transcribed Document [facility] [place] Family Medicine [address] [place] [address] ProviderHaroldo MD [address] [place] [address] Social History Tobacco Use Types Packs/Day Years [...] Stand Device : None, Belt, gait, Other: MANAGER PRODUCT SUPPORT of 1 Stand to Sit Device : None, Belt, gait, Other: MANAGER PRODUCT SUPPORT of 1 Sit to Supine Devices : [...] Walking Distance : 180 ft with min MANAGER PRODUCT SUPPORT due to min ataxia. pt with 2-3 occasions of LOB and 1 episode of R toe drag during R swing phase. Verbal cues to slow janna to reduce ataxia. and improve dynamic balance. Ambulatory Devices : Gait belt, Other: MANAGER PRODUCT SUPPORT of 1 Gait Deviations : Yes Left [...] ARYAN GOSS, PT - 02/06/2019 15:13 EDT Soil Tester Goals Mobility/Bed Mobility LTG PT Grid Goal [...] ARYAN GOSS, PT - 02/06/2019 15:13 EDT [place] PT Charges PT Eval Low Complexity : 1 ARYAN GOSS PT - 02/06/2019 15:13 EDT Electronically signed by Brittany [facility] Conversion Jammer Operator Cerner at 01/24/2023 10:26 AM CDT documented in this encounter Plan of Treatment Not on file documented as of this encounter Visit Diagnoses Not on filedocumented in this encounter Care Teams Communications Project Manager Relationship Specialty Start Date End Date Marielos Amaral, KAYE [address] [address] PCP - General Nurse Practitioner 08/18/23 documented as of this encounter
--- OUTSIDE RECORDS SUMMARY | 2025-05-20 12:01 | XMS_ITS | Encounter Summary ---
Author Organization [employer] ([place], [place], [place], [place]) Address [address] [place] [address] Care Team Providers Care Rawhide Bone Roller Name Role Phone Marielos Amaral KAYE Primary Care Provider Encounter Details Date Type Department Care Team (Late st Contact Info) Description 02/06/2019 Transcribed Document [facility] [place] [address] [place] [address] ProviderHaroldo MD [address] [place] [address] Social History Tobacco Use Types Packs/Day Years [...] Meds: Colace, Pepcid, Humalog, Metformin GI: LBM WATER SERVICE DISPATCHER Skin: WNLs Ht: 69 Wt: 175# wt [...] on filedocumented in this encounter Care Teams Rawhide Bone Roller Relationship Specialty Start Date End Date Marielos Amaral APRN [address] [address] PCP - General Nurse Practitioner 08/18/23 documented as of this encounter
--- OUTSIDE RECORDS SUMMARY | 2025-05-20 12:01 | XMS_ITS | Encounter Summary ---
Author Organization [employer] ([place], [place], [place], [place]) Address [address] [place] [address] Care Team Providers Care Management Technician Name Role Phone Marielos Amaral APRN Primary Care Provider Encounter Details Date Type Department Care Team (Late st Contact Info) Description 04/12/2020 Transcribed Document [facility] [place] Family Medicine [address] [place] [address] ProviderHaroldo MD [address] [place] [address] Social History Tobacco Use Types Packs/Day Years [...] JOYCE BrittB./Sex: 1950 Male Med Rec #: [id number] Physician: PRINCESS DOCKERY MD-GAE Financial #: [id number] Pt. Type: E [place]Bed[place] [facility] [place]mit/Disch: 04/12/20 06:32:00 - [place] [facility] [place] - Case Attendance Entry 1 Entry 2 Entry 3 Case Attendee PRINCESS DOCKERY BRISCOE, ANTHONY W. Thayer, Dena, RN -GAE Role Performed Surgeon/Proceduralist, Scrub, First Covered Button Maker, First First Time In 04/12/20 07:32:00 04/12/20 [...] Case Attendee TOVA MOELLER STIGERS, DAVID, MD-ANS SWITCHBOX ASSEMBLER-ANS Role Performed SWITCHBOX ASSEMBLER/Nurse Software Installation Engineer Anesthesiologist of Record Time In 04/12/20 07:32:00 04/12/20 07:32:00 Time Out 04/12/20 07:51:00 04/12/20 07:51:00 Procedure Esophagogastroduodenosco Esophagogastroduodenosco py, EGD w py, EGD w Radiofrequency Radiofrequency Ablation, Esophageal Ablation, Esophageal Biopsy Biopsy Other Attendee Superficial Wound Closed By: Last Modified By: Roxana Brady RN Thayer, Dena, RN 04/12/20 07:48:42 04/12/20 07:48:42 [facility] [place] [place] - Case Attendance Audit 04/12/20 07:48:42 Oceanographer Physical: [id number] Modifier: [id number] 1 <+> Time Out 1 <*> Procedure [...] w Radiofrequency Ablation, Esophageal Biopsy 04/12/20 07:40:20 Oceanographer Physical: [id number] Modifier: [id number] 1 <*> Procedure Esophagogastroduodenoscopy, EGD w Radiofrequency Ablation 2 <*> Procedure Esophagogastroduodenoscopy, EGD w Radiofrequency Ablation 3 <*> Procedure Esophagogastroduodenoscopy, EGD w Radiofrequency Ablation 4 <*> Procedure Esophagogastroduodenoscopy, EGD w Radiofrequency Ablation 5 <*> Procedure Esophagogastroduodenoscopy, EGD w Radiofrequency Ablation 04/12/20 07:37:28 Oceanographer Physical: [id number] Modifier: [id number] <+> 1 Procedure <+> 2 Time In <+> 2 Procedure <+> 3 Time In <+> 3 Procedure <+> 4 Time In <+> 4 Procedure <+> 5 Time In <+> 5 Procedure [facility] [place] [place] - Case Times Entry 1 Patient In Room Time 04/12/20 07:32:00 Out Room Time 04/12/20 07:51:00 Anesthesia Start Time 04/12/20 07:32:00 Stop Time 04/12/20 07:48:00 Surgery / Procedure Times Start Time 04/12/20 07:37:00 Stop Time 04/12/20 07:48:00 Last Modified By: Roxana Brady RN 04/12/20 07:48:40 [facility] [place] - Case Times Audit 04/12/20 07:48:40 Oceanographer Physical: [id number] Modifier: [id number] <+> 1 Out Room Time <+> 1 Stop Time <+> 1 Stop Time 04/12/20 07:37:43 Oceanographer Physical: [id number] Modifier: [id number] <+> 1 Start Time [facility] - Cautery Entry 1 ESU Identification Cautery Type Other Cautery Type 90 degree RFA Comments ID Number [id number] ID Type Serial Number Cautery Settings ESU [...] - Fire Risk Assessment Audit 04/12/20 07:35:37 Oceanographer Physical: [id number] Modifier: [id number] <+> 1 Fire Risk Assessment Complete E Endo - General Case Cooler Worker 1 Case Information OR Endo 01 SJE [...] Entry 1 Medication/Irrigant Mucomyst 200mg/1ml 10ml - [id number] Route of Esophageal Wash Administration Dose Dose [...] Endo - Patient Positioning Audit 04/12/20 07:40:20 Oceanographer Physical: [id number] Modifier: [id number] 1 <*> Procedure Esophagogastroduodenoscopy, EGD w Radiofrequency [...] Endo - Sign Out Audit 04/12/20 07:50:57 Oceanographer Physical: [id number] Modifier: [id number] <+> 1 RN Sign Out Signature Date/Time [...] Endo - Surgical Procedures Audit 04/12/20 07:48:56 Oceanographer Physical: [id number] Modifier: [id number] 1 <*> Procedure Esophagogastroduodenoscopy 1 <+> Stop 2 <*> Procedure EGD w Radiofrequency Ablation 2 <+> Stop 3 <*> Procedure Esophageal Biopsy 3 <+> Stop 04/12/20 07:48:27 Oceanographer Physical: [id number] Modifier: [id number] 1 <*> Procedure Esophagogastroduodenoscopy 2 <*> Procedure EGD w Radiofrequency Ablation 3 <*> Procedure Esophageal Biopsy 04/12/20 07:40:16 Oceanographer Physical: [id number] Modifier: [id number] <+> 3 Procedure <+> 3 Primary Procedure <+> 3 Primary Surgeon <+> 3 Specialty <+> 3 Start <+> 3 Wound Class <+> 3 Anesthesia Type 04/12/20 07:38:44 Oceanographer Physical: [id number] Modifier: [id number] 2 <*> Procedure EGD w Radiofrequency Ablation [...] Endo - Time Out Audit 04/12/20 07:40:21 Oceanographer Physical: [id number] Modifier: [id number] 1 <*> Procedure to be Performed Esophagogastroduodenoscopy, EGD w Radiofrequency Ablation 04/12/20 07:39:25 Oceanographer Physical: [id number] Modifier: [id number] 1 <*> Procedure to be Performed Esophagogastroduodenoscopy, EGD w Radiofrequency Ablation Case Comments <None> Finalized By: Roxana Brady RN Document Signatures Signed By: Roxana Brady RN 04/12/20 07:51 documented in this encounter Plan of Treatment Not on file documented as of this encounter Visit Diagnoses Not on filedocumented in this encounter Care Teams Management Technician Relationship Specialty Start Date End Date Marielos Amaral, PACKING ROOM WORKER [address] [address] PCP - General Nurse Practitioner 08/18/23 documented as of this encounter
--- OUTSIDE RECORDS SUMMARY | 2025-05-20 12:01 | XMS_ITS | Encounter Summary ---
Author Organization [employer] ([place], [place], [place], [place]) Address [address] [place] [address] Care Team Providers Care Water Resources Project Manager Name Role Phone Marielos Amaral APRN Primary Care Provider Encounter Details Date Type Department Care Team (Late st Contact Info) Description 04/12/2020 Transcribed Document [facility] [place] Family Medicine [address] [place] [address] ProviderHaroldo MD [address] [place] [address] Social History Tobacco Use Types Packs/Day Years [...] 1950 Associated Diagnoses: None Author: PRINCESS LOPEZ MD-[facility] Procedure: Esophagogastroduodenoscopy with with cold biopsies and radiofrequency ablation Endoscopist: Princess Lopez II, M.D. Referring Physician: Axel Hamlin M.D. Date of Procedure: April 12, 2020 Equipment: Olympus GIF-190 standard gastroscope Method of Sedation: MAC sedation Indication: Mr. Antoine is a 69-year-old gentleman who is here for follow-up surveillance upper endoscopy with possible radiofrequency ablation. 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 Initial biopsies did show intestinal [...] filedocumented in this encounter Care Teams Water Resources Project Manager Relationship Specialty Start Date End Date Marielos Amaral, KAYE [address] [phone] PCP - General Nurse Practitioner 08/18/23 documented as of this encounter
--- OUTSIDE RECORDS SUMMARY | 2025-05-20 12:01 | XMS_ITS | Encounter Summary ---
Author Organization [employer] ([place], [place], [place], [place]) Address [address] [place] [address] Care Team Providers Care Social Research Assistant Name Role Phone Marielos Amaral KAYE Primary Care Provider Encounter Details Date Type Department Care Team (Late st Contact Info) Description 02/06/2019 Transcribed Document [facility] [place] Family Medicine [address] [place] [address] ProviderHaroldo MD [address] [place] [address] Social History Tobacco Use Types Packs/Day Years [...] Assistive Devices No Devices Recorded SANDI SERRANO OTR/Melvni - 02/08/2019 14:52 EDT General Status Patient [...] SANDI SERRANO OTR/Melvin - 02/08/2019 14:53 EDT Call Center Operations Manager Goals, OT Grooming LTG Grid Goal [...] SANDI SERRANO OTR/L - 02/08/2019 14:53 EDT [place] OT Charges OT Ther Activities Ea 15 Min : 1 OT Eval Low Complexity : 1 SANDI SERRANO OTR/L - 02/08/2019 14:53 EDT documented in this encounter Plan of Treatment Not on file documented as of this encounter Visit Diagnoses Not on filedocumented in this encounter Care Teams Social Research Assistant Relationship Specialty Start Date End Date Marielos Amaral, HEAD WAITRESS [address] [address] PCP - General Nurse Practitioner 08/18/23 documented as of this encounter
--- OUTSIDE RECORDS SUMMARY | 2025-05-20 12:01 | XMS_ITS | Encounter Summary ---
Author Organization [employer] ([place], [place], [place], [place]) Address [address] [place] [address] Care Team Providers Care Director Of Informatics Name Role Phone Marielos Amaral KAYE Primary Care Provider [phone] Encounter Details Date Type Department Care Team (Late st Contact Info) Description 04/12/2020 Transcribed Document [facility] [place] [address] [place] [address] ProviderHaroldo MD [address] [place] [address] Social History Tobacco Use Types Packs/Day Years [...] Tomatoes and foods made with tomatoes. ? [place] or spicy foods. ? Chocolate and peppermint. ??? Do not drink alcohol. General instructions ??? Take qqaa-rwh-spbtxix and prescription medicines only as told by [...] 12/12/2004 Document Revised: 01/18/2019 Document Reviewed: 01/18/2019 [employer] Interactive Patient Education ? 2020 [employer] General Anesthesia, Adult, Care After This [...] activities are safe for you. ??? Take kaso-dpa-dhoeeds and prescription medicines only as told by [...] 12/29/2001 Document Revised: 05/08/2018 Document Reviewed: 05/08/2018 [employer] Interactive Patient Education ? 2020 [employer] ESOPHAGOGASTRODUODENOSCOPY Care After Read the instructions outlined [...] in this encounter Care Teams Director Of Informatics Relationship Specialty Start Date End Date Marielos Amaral APRN [address] [address] PCP - General Nurse Practitioner 08/18/23 documented as of this encounter
--- OUTSIDE RECORDS SUMMARY | 2025-05-20 12:01 | XMS_ITS | Encounter Summary ---
Author Organization [employer] ([place], [place], [place], [place]) Address [address] [place] [address] Care Team Providers Care Food Service Representative Name Role Phone AmaralMarielos roque KAYE Primary Care Provider Encounter Details Date Type Department Care Team (Late st Contact Info) Description 02/06/2019 Transcribed Document [facility] [place] [address] [place] [address] ProviderHaroldo MD [address] [place] [address] Social History Tobacco Use Types Packs/Day Years [...] on filedocumented in this encounter Care Teams Food Service Representative Relationship Specialty Start Date End Date Marielos Amaral, OPTICAL EFFECTS LINE UP PERSON [address] [place] [address] PCP - General Nurse Practitioner 08/18/23 documented as of this encounter
--- OUTSIDE RECORDS SUMMARY | 2025-05-20 12:01 | XMS_ITS | Encounter Summary ---
Author Organization [employer] ([place], [place], [place], [place]) Address [address] [place] [address] Care Team Providers Care Windows Server Architect Name Role Phone Marielos Amaral KAYE Primary Care Provider Encounter Details Date Type Department Care Team (Late st Contact Info) Description 02/06/2019 Transcribed Document [facility] [place] Medicine [address] [place] [address] ProviderHaroldo MD [address] [place] [address] Social History Tobacco Use Types Packs/Day Years [...] : 02/05/2019 23:59 Assisted by, PT : geek squad autotech/aide Personal Devices : Personal Devices No Devices [...] FANY FREEMAN, PT - 02/07/2019 9:03 EDT Fdc Goals Stairs LTG Grid Goal #1 Device [...] on filedocumented in this encounter Care Teams Windows Server Architect Relationship Specialty Start Date End Date Marielos Amaral APRN [address] [address] PCP - General Nurse Practitioner 08/18/23 documented as of this encounter
--- OUTSIDE RECORDS SUMMARY | 2025-05-20 12:01 | XMS_ITS | Encounter Summary ---
Author Organization [employer] ([place], [place], [place], [place]) Address [address] [place] [address] Care Team Providers Care Technical Photographer Name Role Phone Marielos Amaral APRN Primary Care Provider [phone] Encounter Details Date Type Department Care Team (Late st Contact Info) Description 02/06/2019 Transcribed Document [facility] [place] [address] [place] [address] ProviderHaroldo MD [address] [place] [address] Social History Tobacco Use Types Packs/Day Years [...] Plan: [employer] GOLD PLUS HMO Policy Number: [id number] Authorization Number: Insurance Primary Name : [employer] [...] on filedocumented in this encounter Care Teams Technical Photographer Relationship Specialty Start Date End Date Marielos Amaral, COSTUME MISTRESS [address] [place] [address] PCP - General Nurse Practitioner 08/18/23 documented as of this encounter
--- OUTSIDE RECORDS SUMMARY | 2025-05-20 12:01 | XMS_ITS | Encounter Summary ---
Author Organization [employer] ([place], [place], [place], [place]) Address [address] [place] [address] Care Team Providers Care Sales And Training Specialist Name Role Phone Marielos Amaral KAYE Primary Care Provider Encounter Details Date Type Department Care Team (Late st Contact Info) Description 02/06/[address] [facility] [place] [address] [place] [address] ProviderHaroldo MD [address] [place] [address] Social History Tobacco Use Types Packs/Day Years [...] Chaudhary Rn-Flex Team - 02/06/2019 17:07 EDT Electronically signed by Renetta Soto Conversion Engineering Production Liaison Cerner at 01/24/2023 10:36 AM CDT documented in this encounter Plan of Treatment Not on file documented as of this encounter Visit Diagnoses Not on filedocumented in this encounter Care Teams Sales And Training Specialist Relationship Specialty Start Date End Date Amaral, Marielos, TABLE ASSEMBLER METAL [address] [place] [address] PCP - General Nurse Practitioner 08/18/23 documented as of this encounter
--- OUTSIDE RECORDS SUMMARY | 2025-05-20 12:01 | XMS_ITS | Encounter Summary ---
Author Organization [employer] ([place], [place], [place], [place]) Address [address] [place] [address] Care Team Providers Care Order Tracer Name Role Phone Marielos Amaral KAEY Primary Care Provider Encounter Details Date Type Department Care Team (Late st Contact Info) Description 02/06/2019 Transcribed Document [facility] [place] [facility] [place] [address] ProviderHaroldo MD [address] [place] [address] Social History Tobacco Use Types Packs/Day Years [...] Ambulatory Legal Guardian : Unaccompanied Support Person/Patient Transplanter Orchid : Yes Support Person/Pt Rep Name : Enriqueta - Contact Password : peanut Support Person/Pt Rep Contact Information : [phone] Want Family/Rep/Phys Notified of Admit : No Emergency Contact #1 : Enriqueta Carrasco Emergency Contact #1 Emergency Contact #1 Relationship : Emergency Contact #2 : January Jet Emergency Contact #2 Emergency Contact #2 Relationship : daughter Chief Complaint : pt here c/o right shoulder pain and weakness to right arm and loss of balance container filler strength equal bilaterally decreased sensation to right arm and right leg no facial droop or slurred speech equal bilateral lower extremities Information Obtained From : Patient Primary Language : Latvian Communication Barrier : None Lina Chaudhary Rn-Flex [...] Scale Risk Level : 25-45 Medium Risk [place] Fall Interventions : Adequate lighting, Assistive devices [...] No. (Last Updated: 01/20/2019 12:43:06 EDT by CORIRNA QUINTANA RN) Nutrition/Health: Regular, Diabetic, Wants to lose weight: No. Sleeping concerns: No. Feels highly stressed: No. (Last Updated: 01/20/2019 12:42:45 EDT by CORRINA QUINTANA RN) Height and Weight, Clinical Dosing Height Source : Stated Height Entry Format : [place] Height, Feet : 5 ft(Converted to: 152 cm, 60 Inch) Height, Inches : 9 Inch(Converted to: 0 ft 9 Inch, 22.86 cm) Clinical Height : 175.26 cm Weight Source : Standing scale Weight Entry Format : [place] Clinical Dosing Weight : 79.55 kg Weight, Pounds : 175 lb Body Surface Area (BSA) : 1.95 m2 Body Mass Index : 25.9 kg/m2 (HI) [place] Body Weight : 70 kg Lina Chaudhary [...] on filedocumented in this encounter Care Teams Order Tracer Relationship Specialty Start Date End Date Marielos Amaral, ELECTROTYPE MOLDER [address] [place] [address] PCP - General Nurse Practitioner 08/18/23 documented as of this encounter
--- OUTSIDE RECORDS SUMMARY | 2025-05-20 12:01 | XMS_ITS | Encounter Summary ---
Author Organization [employer] ([place], [place], [place], [place]) Address [address] [place] [address] Care Team Providers Care Milk Receiver Name Role Phone Marielos Amaral KAYE Primary Care Provider [phone] Encounter Details Date Type Department Care Team (Late st Contact Info) Description 04/12/2020 Transcribed Document [facility] [place] Family Medicine [address] [place] [address] ProviderHaroldo MD [address] [place] [address] Social History Tobacco Use Types Packs/Day Years Used Date Smoking Tobacco: Never Assessed Sex and Gender Information Value Date Recorded Sex Assigned at Not on file Legal Sex Male 3:45 PM CDT Gender Identity Not on file Sexual Orientation Not on file documented as of this encounter Miscellaneous Notes * Cerner Conversion Note - Haroldo ProviderMD - 04/12/2020 7:58 AM CDT [address] [address] ELINA ZACKARY COOK :1950 Visit [...] needed Comments follow up as directed Where: [address] [id number]- Medications What How Much When Instructions Next [...] Tomatoes and foods made with tomatoes. ? Whitecone or spicy foods. ? Chocolate and peppermint. ??? Do not drink alcohol. General instructions ??? Take mfdm-ube-trrmrvh and prescription medicines only as told by [...] 12/12/2004 Document Revised: 01/18/2019 Document Reviewed: 01/18/2019 [employer] Interactive Patient Education ?? 2020 [employer]. General Anesthesia, Adult, Care After This sheet [...] activities are safe for you. ??? Take xqlf-tmx-woqurli and prescription medicines only as told by [...] 12/29/2001 Document Revised: 05/08/2018 Document Reviewed: 05/08/2018 [employer] Interactive Patient Education ?? 2020 Elsevier Inc. [...] Assistance with quitting is available by contacting 9-945-VSFW-NOW. This is a free resource providing counseling, [...] was given the opportunity to ask questions. Patient/Retail Advertising Executive Name: Patient/Retail Advertising Executive Signature: Relationship to Patient: Clinician/Hospital Retail Advertising Executive Signature: Date: Electronically signed by Donato Soto Conversion Interior Assemblies Developer [employer] at 01/24/2023 10:34 AM CDT documented in this encounter Plan of Treatment Not on file documented as of this encounter Visit Diagnoses Not on filedocumented in this encounter Care Teams Milk Receiver Relationship Specialty Start Date End Date Marielos Amaral, WIRE TEMPERER [address] [place] [address] PCP - General Nurse Practitioner 08/18/23 documented as of this encounter
--- OUTSIDE RECORDS SUMMARY | 2025-05-20 12:01 | XMS_ITS | Encounter Summary ---
Author Organization [employer] ([place], [place], [place], [place]) Address [address] [place] [address] Care Team Providers Care Ice Hockey Coach Name Role Phone Marielos Amaral KAYE Primary Care Provider [phone] Encounter Details Date Type Department Care Team (Late st Contact Info) Description 02/06/2019 Transcribed Document [facility] [place] [address] ProviderHaroldo MD [address] [place] [address] Social History Tobacco Use Types Packs/Day Years [...] to right arm and loss of balance human resource intern strength equal bilaterally decreased sensation to [...] Physician Consult to Spiritual Care Consult to Build Engineer CRP C-Reactive Protein Diet, Adult Do Not [...] Lymph # 2.34 x10(3)/uL 02/05/2019 21:52 EDT Delta % 8.7 % 02/05/2019 21:52 EDT Delta # 0.99 K/uL 02/05/2019 21:52 EDT Eos [...] Appearance CLEAR2 02/05/2019 23:59 EDT Urine Specific [place] 1.016 02/05/2019 23:59 EDT Urine pH Dipstick [...] Code, Continuous Order Electronically signed by Brittany [facility] Conversion Command And Control Officer Cerner at 01/24/2023 10:25 AM CDT documented in this encounter Plan of Treatment Not on file documented as of this encounter Visit Diagnoses Not on filedocumented in this encounter Care Teams Ice Hockey Coach Relationship Specialty Start Date End Date Marielos Amaral, WELL SHOOTER [address] [id number] PCP - General Nurse Practitioner 08/18/23 documented as of this encounter
--- OUTSIDE RECORDS SUMMARY | 2025-05-20 12:01 | XMS_ITS | Encounter Summary ---
Author Organization [employer] ([place], [place], [place], [place]) Address [address] [place] [address] Care Team Providers Care Lot Boss Name Role Phone Marielos Amaral KAYE Primary Care Provider Encounter Details Date Type Department Care Team (Late st Contact Info) Description 02/06/2019 Transcribed Document [facility] [place] [facility] [place] [address] ProviderHaroldo MD [address] [place] [address] Social History Tobacco Use Types Packs/Day Years [...] to right arm and loss of balance ophthalmic surgeon strength equal bilaterally decreased sensation to right [...] cerebellar signs. Radiology Results (Last 48 hours) [id number] -- 02/05/2019 23:59 CT Head WO (02/05/2019 [...] approximately 50% stenosis of theproximal basilar artery. reproductive endocrinologist show mild stenosis proximally. IMPRESSION: 1. 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 Anterior circulation intact.3. Mild bilateral HAND PLEATER disease. 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 at [facility] main Recommendations: (i) Cardiology input [...] Lymph # 2.34 x10(3)/uL 02/05/2019 21:52 EDT [place] % 8.7 % 02/05/2019 21:52 EDT [place] # 0.99 K/uL 02/05/2019 21:52 EDT Eos [...] Appearance CLEAR2 02/05/2019 23:59 EDT Urine Specific [place] 1.016 02/05/2019 23:59 EDT Urine pH Dipstick [...] 02/05/2019 21:52 EDT Electronically signed by Brittany [facility] Conversion Prosecuting Attorney Cerner at 01/24/2023 10:30 AM CDT documented in this encounter Plan of Treatment Not on file documented as of this encounter Visit Diagnoses Not on filedocumented in this encounter Care Teams Lot Boss Relationship Specialty Start Date End Date Amaral Marielos, ON AIR DIRECTOR [address] [address] PCP - General Nurse Practitioner 08/18/23 documented as of this encounter
--- OUTSIDE RECORDS SUMMARY | 2025-05-20 12:01 | XMS_ITS | Encounter Summary ---
Author Organization [employer] ([place], [place], [place], [place]) Address [address] [place] [address] Care Team Providers Care Manager Hotel Name Role Phone Marielos Amaral KAYE Primary Care Provider Encounter Details Date Type Department Care Team (Late st Contact Info) Description 02/06/2019 Transcribed Document [facility] [place] [address] [place] [address] ProviderHaroldo MD [address] [place] [address] Social History Tobacco Use Types Packs/Day Years [...] filedocumented in this encounter Care Teams Manager Hotel Relationship Specialty Start Date End Date Marielos Amaral, ORCHESTRATOR [address] [address] PCP - General Nurse Practitioner 08/18/23 documented as of this encounter
--- OUTSIDE RECORDS SUMMARY | 2025-05-20 12:01 | XMS_ITS | Encounter Summary ---
Author Organization [employer] ([place], [place], [place], [place]) Address [address] [place] [address] Care Team Providers Care Billposter Name Role Phone Marielos Amaral APRN Primary Care Provider Encounter Details Date Type Department Care Team (Late st Contact Info) Description 02/06/2019 Transcribed Document [facility] Radiology [address] [place] [id number] Camilo Steven MD [address] [place] [address] Social History Tobacco Use Types Packs/Day Years [...] yrs ago), HTN, HLD that presented to [facility] at almost midnight last nite (02/05/19) due to right shoulder pain and weakness to right arm, with loss of balance, with bilateral bonding machine setter strength reduced and sensation to right arm/leg, but no facial droop or slurred speech. Patient has been on Amiodarone, Metoprolol and Aspirin for PAF but no OAC. Patient is followedby Dr. Sarai Peterson in [place]. Cardiology consulted for further evaluation and medical [...] All Problems Impaired vision / SNOMED CT 14794347 / Confirmed Stented coronary artery / SNOMED CT 5975942372 / Confirmed Angina / SNOMED CT 955975407 / Confirmed Coronary artery disease / SNOMED CT 2590020016 / Confirmed Hyperlipidemia / SNOMED CT 70322200 / Confirmed Hypertension / SNOMED CT 24269258 / Confirmed Heart failure / SNOMED CT 012665367 / Confirmed Heart murmur / SNOMED CT 213490250 / Confirmed Enlarged prostate / SNOMED CT 794359346 / Confirmed GERD - Gastro-esophageal reflux disease / SNOMED CT 3060730353 / Confirmed Diabetes mellitus type II / SNOMED CT 72252086 / Confirmed Migraine / SNOMED CT 90743384 / Confirmed History of obstructive sleep apnea / IMO 93749001 / Confirmed, Active Problems (13) Angina Coronary [...] cardiac catheterization. hernia repair. tonsillectomy. Cholecystectomy; (CPT4 [id number]). appendectomy. left arm surgery. coronary stents. Social [...] 24 Hours) Radiology Results (Last 48 hours) [id number] -- 02/05/2019 23:59 CT Head WO (02/05/2019 [...] approximately 50% stenosis of theproximal basilar artery. tow boat captain show mild stenosis proximally. IMPRESSION: 1. 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 Anterior circulation intact.3. 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 This study was performed using dose [...] on filedocumented in this encounter Care Teams Billposter Relationship Specialty Start Date End Date Marielos Amaral, KAYE [address] [place] [address] PCP - General Nurse Practitioner 08/18/23 documented as of this encounter
--- OUTSIDE RECORDS SUMMARY | 2025-05-20 12:01 | XMS_ITS | Encounter Summary ---
Author Organization [employer] ([place], [place], [place], [place]) Address [address] [place] [address] Care Team Providers Care Hotel General Manager Name Role Phone Marielos Amaral KAYE Primary Care Provider Encounter Details Date Type Department Care Team (Late st Contact Info) Description 02/06/2019 Transcribed Document [facility] [place] [address] [place] [address] ProviderHaroldo MD [address] [place] [address] Social History Tobacco Use Types Packs/Day Years [...] 02/06/2019 8:04 EDT by OFELIA ROY Patient Oyster Culturist Phone Call for Consults Consult Phone Call/Page Attempt : First call Physician Requesting Consult : SAYDA TORRES RES-SYDNI Physician Requested for Consult : PRIYA JIANG MD-NEU Provider Service Notified Name : Neurology Physician Covering for Consult : PRIYA JIANG MD-NEU Date and Time Call Returned : 02/06/2019 8:02 EDT OFELIA ROY, Patient Oyster Culturist - 02/06/2019 8:04 EDT documented in this encounter Plan of Treatment Not on file documented as of this encounter Visit Diagnoses Not on filedocumented in this encounter Care Teams Hotel General Manager Relationship Specialty Start Date End Date Marielos Amaral, TREATING AND PUMPING SUPERVISOR [address] [id number] PCP - General Nurse Practitioner 08/18/23 documented as of this encounter
--- OUTSIDE RECORDS SUMMARY | 2025-05-20 12:02 | XMS_ITS | Encounter Summary ---
Author Organization [employer] ([place], [place], [place], [place]) Address [address] [place] [address] Care Team Providers Care Psychological Aide Name Role Phone Marielos Amaral KAYE Primary Care Provider Encounter Details Date Type Department Care Team (Late st Contact Info) Description 02/05/2019 Transcribed Document [facility] [place] [address] [place] [address] ProviderHaroldo MD [address] [place] [address] Social History Tobacco Use Types Packs/Day Years [...] to right arm and loss of balance tile edger strength equal bilaterally decreased sensation to right arm and right leg no facial droop or slurred speech equal bilateral lower extremities Merritt Guzman RN - 02/05/2019 18:55 EDT DCP GENERIC CODE Tracking Acuity : 2 - Emergent Tracking Group : [facility] ED Merritt Guzman RN - 02/05/2019 [...] 02/05/2019 19:01:21 EDT) Problems(Active) Angina (SNOMED CT :515625391 ) Name of Problem: Angina ; Recorder: RAVEN REILLY RN; Confirmation: Confirmed ; Classification: Patient Stated ; Code: 860619956 ; Contributor System: PowerChart ; Last Updated: 07/20/2014 9:33 EDT ; Life Cycle Date: 07/20/2014 ; Life Cycle Status: Active ; Vocabulary: SNOMED CT Coronary artery disease (SNOMED CT :2893585788 ) Name of Problem: Coronary artery disease ; Recorder: RAVEN REILLY RN; Confirmation: Confirmed ; Classification: Patient Stated ; Code: 7650571886 ; Contributor System: PowerChart ; Last Updated: 07/20/2014 9:33 EDT ; Life Cycle Date: 07/20/2014 ; Life Cycle Status: Active ; Vocabulary: SNOMED CT Diabetes mellitus type II (SNOMED CT :64442944 ) Name of Problem: Diabetes mellitus type II ; Recorder: RAVEN REILLY RN; Confirmation: Confirmed ; Classification: Patient Stated ; Code: 35672766 ; Contributor System: SharesPostChart ; Last Updated: 07/20/2014 9:35 EDT ; Life Cycle Date: 07/20/2014 ; Life Cycle Status: Active ; Vocabulary: SNOMED CT Enlarged prostate (SNOMED CT :928343066 ) Name of Problem: Enlarged prostate ; Recorder: RAVEN REILLY RN; Confirmation: Confirmed ; Classification: Patient Stated ; Code: 101110823 ; Contributor System: PowerChart ; Last Updated: 07/20/2014 9:34 EDT ; Life Cycle Date: 07/20/2014 ; Life Cycle Status: Active ; Vocabulary: SNOMED CT GERD - Gastro-esophageal reflux disease (SNOMED CT :2486919433 ) Name of Problem: GERD - Gastro-esophageal reflux disease ; Recorder: RAVEN REILLY RN; Confirmation: Confirmed ; Classification: Patient Stated ; Code: 6889525846 ; Contributor System: PowerChart ; Last Updated: 07/20/2014 9:34 EDT ; Life Cycle Date: 07/20/2014 ; Life Cycle Status: Active ; Vocabulary: SNOMED CT Heart failure (SNOMED CT :527151523 ) Name of Problem: Heart failure ; Recorder: RAVEN REILLY RN; Confirmation: Confirmed ; Classification: Patient Stated ; Code: 392270593 ; Contributor System: PowerChart ; Last Updated: 07/20/2014 9:33 EDT ; Life Cycle Date: 07/20/2014 ; Life Cycle Status: Active ; Vocabulary: SNOMED CT Heart murmur (SNOMED CT :754399047 ) Name of Problem: Heart murmur ; Recorder: RAVEN REILLY RN; Confirmation: Confirmed ; Classification: Patient Stated ; Code: 025768891 ; Contributor System: PowerChart ; Last Updated: 07/20/2014 9:33 EDT ; Life Cycle Date: 07/20/2014 ; Life Cycle Status: Active ; Vocabulary: SNOMED CT History of obstructive sleep apnea (IMO :23422602 ) Name of Problem: History of obstructive sleep apnea ; Recorder: SYSTEM, SYSTEM; Confirmation: Confirmed ; Classification: Medical ; Code: 81228297 ; Last Updated: 01/20/2019 12:39 EDT ; Life Cycle Date: 01/20/2019 ; Life Cycle Status: Active ; Vocabulary: IMO Hyperlipidemia (SNOMED CT :60193097 ) Name of Problem: Hyperlipidemia ; Recorder: RAVEN REILLY RN; Confirmation: Confirmed ; Classification: Patient Stated ; Code: 33146939 ; Contributor System: PowerChart ; Last Updated: 09/03/2017 13:38 EST ; Life Cycle Date: 07/20/2014 ; Life Cycle Status: Active ; Vocabulary: SNOMED CT Hypertension (SNOMED CT :76560153 ) Name of Problem: Hypertension ; Recorder: RAVEN REILLY RN; Confirmation: Confirmed ; Classification: Patient Stated ; Code: 12631878 ; Contributor System: PowerChart ; Last Updated: 07/20/2014 9:33 EDT ; Life Cycle Date: 07/20/2014 ; Life Cycle Status: Active ; Vocabulary: SNOMED CT Impaired vision (SNOMED CT :53884333 ) Name of Problem: Impaired vision ; Recorder: RAVEN REILLY RN; Confirmation: Confirmed ; Classification: Patient Stated ; Code: 54299825 ; Contributor System: PowerChart ; Last Updated: 07/20/2014 9:32 EDT ; Life Cycle Date: 07/20/2014 ; Life Cycle Status: Active ; Vocabulary: SNOMED CT Migraine (SNOMED CT :50093340 ) Name of Problem: Migraine ; Recorder: RAVEN REILLY RN; Confirmation: Confirmed ; Classification: Patient Stated ; Code: 25335485 ; Contributor System: PowerChart ; Last Updated: 07/20/2014 9:35 EDT ; Life Cycle Date: 07/20/2014 ; Life Cycle Status: Active ; Vocabulary: SNOMED CT Stented coronary artery (SNOMED CT :2409880107 ) Name of Problem: Stented coronary artery ; Recorder: RAVEN REILLY RN; Confirmation: Confirmed ; Classification: Patient Stated ; Code: 1972905368 ; Contributor System: Galazar ; Last Updated: 07/20/2014 9:33 EDT ; Life Cycle Date: 07/20/2014 ; Life Cycle Status: Active ; Vocabulary: SNOMED CT Diagnoses(Active) Weakness Date: 02/05/2019 ; Diagnosis Type: Reason For Visit ; Confirmation: Complaint of ; Clinical Dx: Weakness ; Classification: Medical ; Clinical Service: Emergency medicine ; Code: PNED ; Probability: 0 ; Diagnosis Code: [id number] ED Height and Weight Height Source : Stated Height Entry Format : [place] Height, Feet : 5 ft(Converted to: 152 cm, 60 Inch) Height, Inches : 9 Inch(Converted to: 0 ft 9 Inch, 22.86 cm) Clinical Height : 175.26 cm Weight Source, ED : Critical estimated dosing weight Weight Entry Format : [place] Weight, Pounds : 175 lb Clinical Dosing Weight : 79.55 kg Body Surface Area (BSA) : 1.95 m2 Body Mass Index : 25.9 kg/m2 (HI) [place] Body Weight (IBW) : 69.73 kg Merritt Guzman, LUIS - 02/05/2019 18:55 EDT Electronically signed by Renetta Soto Conversion Certified Meeting Professional Cerner at 01/24/2023 10:42 AM CDT documented in this encounter Plan of Treatment Not on file documented as of this encounter Visit Diagnoses Not on filedocumented in this encounter Care Teams Psychological Aide Relationship Specialty Start Date End Date Marielos Amaral, CAR HOPPER [address] [address] PCP - General Nurse Practitioner 08/18/23 documented as of this encounter
--- OUTSIDE RECORDS SUMMARY | 2025-05-20 12:02 | XMS_ITS | Encounter Summary ---
Author Organization [employer] ([place], [place], [place], [place]) Address [address] [place] [address] Care Team Providers Care Drapery Seamstress Name Role Phone Marielos Amaral KAYE Primary Care Provider Encounter Details Date Type Department Care Team (Late st Contact Info) Description 10/17/2019 Transcribed Document [facility] [place] Medicine [address] [place] [address] ProviderHaroldo MD [address] [place] [address] Social History Tobacco Use Types Packs/Day Years Used Date Smoking Tobacco: Never Assessed Sex and Gender Information Value Date Recorded Sex Assigned at Not on file Legal Sex Male 3:45 PM CDT Gender Identity Not on file Sexual Orientation Not on file documented as of this encounter Miscellaneous Notes * Cerner Conversion Note - Haroldo ProviderMD - 10/17/2019 5:00 AM FAMILY AND CONSUMER EDUCATION TEACHER Chart Check - Review Order Profile Entered On: 10/17/2019 4:54 EST Performed On: 10/17/2019 5:00 EST by Vanessa Blake RN Chart Check Powerplans Initiated/Discontinued as Appropriate : Yes All Active Orders Reviewed : Yes Vanessa Blake RN - 10/17/2019 4:54 EST Electronically signed by Brittany [facility] Conversion Apartment Leasing Agent Cerner at 01/24/2023 10:33 AM CDT documented in this encounter Plan of Treatment Not on file documented as of this encounter Visit Diagnoses Not on filedocumented in this encounter Care Teams Drapery Seamstress Relationship Specialty Start Date End Date Marielos Amaral, MEDICAL INSTRUMENT CABLE FABRICATOR [address] [place] [address] PCP - General Nurse Practitioner 08/18/23 documented as of this encounter
--- OUTSIDE RECORDS SUMMARY | 2025-05-20 12:02 | XMS_ITS | Encounter Summary ---
Author Organization [employer] ([place], [place], [place], [place]) Address [address] [place] [address] Care Team Providers Care Communications Executive Name Role Phone Marielos Amaral KAYE Primary Care Provider Encounter Details Date Type Department Care Team (Late st Contact Info) Description 01/20/2019 Transcribed Document [facility] [place] [address] [place] [address] ProviderHaroldo MD [address] [place] [address] Social History Tobacco Use Types Packs/Day Years [...] Source : Stated Height Entry Format : [place] Height, Feet : 5 ft(Converted to: 152 cm, 60 Inch) Height, Inches : 9 Inch(Converted to: 0 ft 9 Inch, 22.86 cm) Clinical Height : 175.26 cm Weight Source : Standing scale Weight Entry Format : [place] Clinical Dosing Weight : 78.86 kg Weight, Pounds : 173 lb Weight, Ounces : 8 oz Body Surface Area (BSA) : 1.95 m2 Body Mass Index : 25.7 kg/m2 (HI) [place] Body Weight : 70 kg CORRINA QUINTANA [...] Home Current Home Treatments : CPAP CORRINA UQINTANA RN - 01/20/2019 12:33 EDT Psychosocial History [...] Info Preferred Name : Clint Support Person/Patient Surgical Instrument Technician : Yes Support Person/Pt Rep Name : Enriqueta - Contact Password : peanut Support Person/Pt Rep Contact Information : [phone] Want Family/Rep/Phys Notified of Admit : No Emergency Contact #1 : Enriqueta Emergency Contact #1 Emergency Contact #1 Relationship : spouse Emergency Contact #2 : none Emergency Contact #2 Phone Number : none Emergency Contact #2 Relationship : none Chief Complaint : GERD Information Obtained From : Patient Primary Language : Honduran Communication Barrier : None CORRINA QUINTANA RN [...] apparent problem Unruly Score : 23 CORRINA QUINATNA RN - 01/20/2019 12:33 EDT Fall Risk [...] Scale Risk Level : 0-24 Low Risk [place] Fall Interventions : Adequate lighting, Assistive devices [...] filedocumented in this encounter Care Teams Communications Executive Relationship Specialty Start Date End Date Marielos Amaral, KAYE [address] [place] [address] PCP - General Nurse Practitioner 08/18/23 documented as of this encounter
--- OUTSIDE RECORDS SUMMARY | 2025-05-20 12:02 | XMS_ITS | Encounter Summary ---
Author Organization [employer] ([place], [place], [place], [place]) Address [address] [place] [address] Care Team Providers Care Timber Inspector Name Role Phone Marielos Amaral APRN Primary Care Provider Encounter Details Date Type Department Care Team (Late st Contact Info) Description 10/17/2019 Transcribed Document [facility] Radiology [address] [place] [id number] Camilo Steven MD [address] [place] [address] Social History Tobacco Use Types Packs/Day Years [...] Shortness of Breath Eliquis: 5 mg, Oral, [id number] Flomax: 0.4 mg, Oral, Daily Metoprolol Succinate [...] 5 mg oral tablet: 1 Tab, Oral, [id number], 60 Tab, 0 Refill(s) Toprol-XL 25 mg [...] tablet 5 mg = 1 Tab, Oral, F51AWic Eliquis 5 mg oral tablet 5 mg [...] mg tab 5 mg 1 Tab, Oral, O67LMkr atorvastatin 40 mg tab 40 mg 1 [...] list: All Problems Angina / SNOMED CT 910556968 / Confirmed Coronary artery disease / SNOMED CT 4891070101 / Confirmed Diabetes mellitus type II / SNOMED CT 67728226 / Confirmed GERD - Gastro-esophageal reflux disease / SNOMED CT 4210601845 / Confirmed Heart failure / SNOMED CT 927258789 / Confirmed Heart murmur / SNOMED CT 874538744 / Confirmed History of obstructive sleep apnea / IMO 51817886 / Confirmed Hyperlipidemia / SNOMED CT 84202441 / Confirmed Hypertension / SNOMED CT 70226605 / Confirmed Impaired vision / SNOMED CT 76842722 / Confirmed Enlarged prostate / SNOMED CT 870700380 / Confirmed Migraine / SNOMED CT 15439972 / Confirmed Stented coronary artery / SNOMED CT 2547201654 / Confirmed, Active Problems (13) Angina Coronary [...] Normal strength, No deformity. Integumentary: Warm, Dry, [place], No rash. Neurologic: Alert, Oriented, No focal deficits. Psychiatric: Cooperative, Appropriate mood & affect. Results Review No qualifying data available Cardiac Markers (Current Encounter/Past 24 Hours) No Cardiac Marker Results Found (Past 24 Hours) Radiology Results (Last 48 hours) [id number] -- 10/14/2019 17:19 MRI Brain WO (10/15/2019 [...] filedocumented in this encounter Care Teams Timber Inspector Relationship Specialty Start Date End Date Marielos Amaral, SUPERVISOR CELL OPERATION [address] [place] [address] PCP - General Nurse Practitioner 08/18/23 documented as of this encounter
--- OUTSIDE RECORDS SUMMARY | 2025-05-20 12:02 | XMS_ITS | Encounter Summary ---
Author Organization [employer] ([place], [place], [place], [place]) Address [address] [place] [address] Care Team Providers Care Coal Pulverizing Operator Name Role Phone Marielos Amaral KAYE Primary Care Provider Encounter Details Date Type Department Care Team (Late st Contact Info) Description 10/17/2019 Transcribed Document [facility] Family Medicine [address] [place] [address] ProviderHaroldo MD [address] [place] [address] Social History Tobacco Use Types Packs/Day Years Used Date Smoking Tobacco: Never Assessed Sex and Gender Information Value Date Recorded Sex Assigned at Not on file Legal Sex Male 3:45 PM CDT Gender Identity Not on file Sexual Orientation Not on file documented as of this encounter Miscellaneous Notes * Cerner Conversion Note - Haroldo ProviderMD - 10/17/2019 2:11 PM MASSAGE OPERATOR Nursing Discharge Summary Entered On: 10/17/2019 14:13 [...] - 10/17/2019 14:11 EST Electronically signed by [facility] Conversion Revenue Director Cerner at 01/24/2023 10:34 AM CDT documented in this encounter Plan of Treatment Not on file documented as of this encounter Visit Diagnoses Not on filedocumented in this encounter Care Teams Coal Pulverizing Operator Relationship Specialty Start Date End Date Marielos Amaral, LOSS PREVENTION DETECTIVE [address] [place] [address] PCP - General Nurse Practitioner 08/18/23 documented as of this encounter
--- OUTSIDE RECORDS SUMMARY | 2025-05-20 12:02 | XMS_ITS | Encounter Summary ---
Author Organization [employer] ([place], [place], [place], [place]) Address [address] [place] [address] Care Team Providers Care Microbiology Technician Name Role Phone Marielos Amaral APRN Primary Care Provider Encounter Details Date Type Department Care Team (Late st Contact Info) Description 01/20/2019 Transcribed Document [facility] Family Medicine [address] [place] [address] ProviderHaroldo MD [address] [place] [address] Social History Tobacco Use Types Packs/Day Years [...] JOYCE /Sex: 1950 Male Med Rec #: [id number] Physician: PRINCESS DOCKERY MD-GAE Financial #: [id number] Pt. Type: O Room/Bed: N/18 Admit/Disch: 01/20/19 12:15:00 - Institution: [facility] PACU Case Times Entry 1 In PACU I 01/20/19 14:28:00 Ready for PACU 01/20/19 15:04:00 Discharge Discharge from PACU 01/20/19 15:04:00 I [facility] PACU Case Times Audit 01/20/19 15:04:37 Adon: KELVIN Modifier: KELVIN <+> 1 Ready for PACU Discharge <+> 1 Discharge from PACU I Finalized By: EZEKIEL CARMICHAEL, RN Document Signatures Signed By: EZEKIEL CARMICHAEL, RN 01/20/19 15:04 Electronically signed by Brittany [facility] Conversion Lap Runner Cerner at 01/24/2023 10:31 AM CDT documented in this encounter Plan of Treatment Not on file documented as of this encounter Visit Diagnoses Not on filedocumented in this encounter Care Teams Microbiology Technician Relationship Specialty Start Date End Date Marielos Amaral, VISCOSITY TESTER [address] [phone] PCP - General Nurse Practitioner 08/18/23 documented as of this encounter
--- OUTSIDE RECORDS SUMMARY | 2025-05-20 12:02 | XMS_ITS | Encounter Summary ---
Author Organization [employer] ([place], [place], [place], [place]) Address [address] [place] [address] Care Team Providers Care Local Sales Associate Name Role Phone Marielos Amaral KAYE Primary Care Provider [phone] Encounter Details Date Type Department Care Team (Late st Contact Info) Description 01/20/2019 Transcribed Document [facility] [place] [address] [place] [address] ProviderHaroldo MD [address] [place] [address] Social History Tobacco Use Types Packs/Day Years [...] Document Reviewed: 12/01/2012 ExitCare? Patient Information ?2014 [employer]. This information is not intended to [...] including vitamins, herbs, eye drops, creams, and wyhh-rkr-pcvykzd medicines. ? Previous problems you or members [...] Document Reviewed: 08/25/2013 ExitCare? Patient Information ?2014 [employer]. This information is not intended to [...] including vitamins, herbs, eye drops, creams, and yqhv-mhk-mgummxw medicines. ??? Previous problems you or members [...] 07/13/2014 Document Revised: 10/13/2015 Document Reviewed: 07/13/2014 [employer] Interactive Patient Education ? 2017 [employer]. documented in this encounter Plan of Treatment Not on file documented as of this encounter Visit Diagnoses Not on filedocumented in this encounter Care Teams Local Sales Associate Relationship Specialty Start Date End Date Marielos Amaral APRN [address] [address] PCP - General Nurse Practitioner 08/18/23 documented as of this encounter
--- OUTSIDE RECORDS SUMMARY | 2025-05-20 12:02 | XMS_ITS | Encounter Summary ---
Author Organization [employer] ([place], [place], [place], [place]) Address [address] [place] [address] Care Team Providers Care General Adjuster Name Role Phone Marielos Amaral APRN Primary Care Provider Encounter Details Date Type Department Care Team (Late st Contact Info) Description 04/12/2020 Transcribed Document [facility] Family Medicine [address] [place] [address] ProviderHaroldo MD [address] [place] [address] Social History Tobacco Use Types Packs/Day Years [...] JOYCE BrittB./Sex: 1950 Male Med Rec #: [id number] Physician: PRINCESS DOCKERY MD-GAE Financial #: [id number] Pt. Type: E Room/Bed: [facility]/ Admit/Disch: 04/12/20 06:32:00 - Institution: [facility] PreOp Case Times Entry 1 In Preop 04/12/20 06:53:00 Ready for Holding n/a Room Patient Ready for n/a Surgery Patient Out of Preop 04/12/20 07:20:00 Patient Out of n/a Holding Room [facility] PreOp Case Times Audit 04/12/20 07:32:09 Casino Floor Walker: [id number] Modifier: [id number] <+> 1 Patient Out of Preop Finalized By: Roxana Brady, RN Document Signatures Signed By: Roxana Brady, LUIS 04/12/20 07:32 documented in this encounter Plan of Treatment Not on file documented as of this encounter Visit Diagnoses Not on filedocumented in this encounter Care Teams General Adjuster Relationship Specialty Start Date End Date Amaral Marielos, EXTRUSION BENDER [address] [address] PCP - General Nurse Practitioner 08/18/23 documented as of this encounter
--- OUTSIDE RECORDS SUMMARY | 2025-05-20 12:02 | XMS_ITS | Encounter Summary ---
Author Organization [employer] ([place], [place], [place], [place]) Address [address] [place] [address] Care Team Providers Care Linecasting Machine Keyboard Operator Name Role Phone Marielos Amaral KAYE Primary Care Provider Encounter Details Date Type Department Care Team (Late st Contact Info) Description 02/05/2019 Transcribed Document [facility] [place] [address] [place] [address] ProviderHaroldo MD [address] [place] [address] Social History Tobacco Use Types Packs/Day Years [...] Communication Barrier : None Primary Language : [place] Any Spiritual/Cultural Needs or Requests : No [...] Mikayla Roberto Rn - 02/05/2019 23:14 EDT [place] Coma [place] Best Motor Response : Obey commands [place] Best Verbal Response : Oriented [place] Eye Opening Response : Spontaneous [place] Coma Score : 15 Mikayla Roberto Rn - 02/05/2019 23:14 EDT documented in this encounter Plan of Treatment Not on file documented as of this encounter Visit Diagnoses Not on filedocumented in this encounter Care Teams Linecasting Machine Keyboard Operator Relationship Specialty Start Date End Date Marielos Amaral, KAYE [address] [address] PCP - General Nurse Practitioner 08/18/23 documented as of this encounter
--- OUTSIDE RECORDS SUMMARY | 2025-05-20 12:02 | XMS_ITS | Encounter Summary ---
Author Organization [employer] ([place], [place], [place], [place]) Address [address] [place] [address] Care Team Providers Care Photo Machine Operator Name Role Phone Marielos Amaral KAYE Primary Care Provider Encounter Details Date Type Department Care Team (Late st Contact Info) Description 10/17/2019 Transcribed Document [facility] Family Medicine [address] [place] [address] ProviderHaroldo MD [address] [place] [address] Social History Tobacco Use Types Packs/Day Years Used Date Smoking Tobacco: Never Assessed Sex and Gender Information Value Date Recorded Sex Assigned at Not on file Legal Sex Male 3:45 PM CDT Gender Identity Not on file Sexual Orientation Not on file documented as of this encounter Miscellaneous Notes * Cerner Conversion Note - Haroldo ProviderMD - 10/17/2019 2:00 AM ENTERTAINMENT & MEDIA CORRESPONDENT Freelance Displayer Details Entered On: 10/17/2019 4:54 EST Performed [...] by Brittany [facility] Conversion Analytical Laboratory Technician Cerner at 01/24/2023 10:28 AM CDT documented in this encounter Plan of Treatment Not on file documented as of this encounter Visit Diagnoses Not on filedocumented in this encounter Care Teams Photo Machine Operator Relationship Specialty Start Date End Date Marielos Amaral, KAYE [address] [phone] PCP - General Nurse Practitioner 08/18/23 documented as of this encounter
--- OUTSIDE RECORDS SUMMARY | 2025-05-20 12:02 | XMS_ITS | Encounter Summary ---
Author Organization [facility] ([place], [place], [place], [place]) Address [address] [place] [address] Care Team Providers Care Home Service Director Name Role Phone Marielos Amaral KAYE Primary Care Provider Encounter Details Date Type Department Care Team (Late st Contact Info) Description 10/17/2019 Transcribed Document [facility] Family Medicine [address] [place] [address] ProviderHaroldo MD [address] [place] [address] Social History Tobacco Use Types Packs/Day Years Used Date Smoking Tobacco: Never Assessed Sex and Gender Information Value Date Recorded Sex Assigned at Not on file Legal Sex Male 3:45 PM CDT Gender Identity Not on file Sexual Orientation Not on file documented as of this encounter Miscellaneous Notes * [employer]ner Conversion Note - Historical ProviderMD - 10/17/2019 6:15 AM PSYCHOLOGY PROFESSOR Height and Weight, Routine Entered On: 10/17/2019 6:15 EST Performed On: 10/17/2019 6:15 EST by Emily Rich [facility] Height and Weight, Routine Routine Weight Source : Bed scale Routine Weight Entry Format : Metric Routine Weight, Kilograms : 85.1 kg(Converted to: 187 lb 10 oz) Routine Weight Calculation : 85.1 kg Height Source : Stated Height Entry Format : [place] Height, Feet : 5 ft Height, Inches [...] filedocumented in this encounter Care Teams Home Service Director Relationship Specialty Start Date End Date Marielos Amaral, BABY DOCTOR [address] [phone] PCP - General Nurse Practitioner 08/18/23 documented as of this encounter
--- OUTSIDE RECORDS SUMMARY | 2025-05-20 12:02 | XMS_ITS | Encounter Summary ---
Author Organization [employer] ([place], [place], [place], [place]) Address [address] [place] [address] Care Team Providers Care Office Nurse Name Role Phone Marielos Amaral GLUE BONE DRIER Primary Care Provider [phone] Encounter Details Date Type Department Care Team (Late st Contact Info) Description 01/20/2019 Transcribed Document [facility] [place] Family Medicine [address] [place] [address] ProviderHaroldo MD [address] [place] [address] Social History Tobacco Use Types Packs/Day Years Used Date Smoking Tobacco: Never Assessed Sex and Gender Information Value Date Recorded Sex Assigned at Not on file Legal Sex Male 3:45 PM CDT Gender Identity Not on file Sexual Orientation Not on file documented as of this encounter Miscellaneous Notes * Cerner Conversion Note - Haroldo ProviderMD - 01/20/2019 2:38 PM CDT [address] [address] ELINA ZACKARY COOK :1950 Visit [...] up with Dr Lopez as needed Where: [address] [place] [address]- Medications What How Much When Instructions Next [...] Document Reviewed: 12/01/2012 ExitCare?? Patient Information ??2015 [employer]. This information is not intended to replace [...] including vitamins, herbs, eye drops, creams, and qesd-kvs-oyjvbdp medicines. ???Previous problems you or members of [...] Document Reviewed: 08/25/2013 ExitCare?? Patient Information ??2015 [employer]. This information is not intended to replace [...] including vitamins, herbs, eye drops, creams, and sqhs-fqz-uenguqs medicines. ??? Previous problems you or members [...] 07/13/2014 Document Revised: 10/13/2015 Document Reviewed: 07/13/2014 [employer] Interactive Patient Education ?? 2017 [employer]. Emergency Awareness and Preventative Care STROKE is [...] Assistance with quitting is available by contacting 5-021-YNXT-NOW. This is a free resource providing counseling, [...] Be sure to sign up for the [facility] patient portal, which gives you 28/04 access to your medical information ??? including these discharge instructions ??? using your computer, smartphone, or tablet. Just go to [employer] to get started. Questions? Call . Test Results Laboratory or Other Results This Visit (last charted value for your 01/20/2019 visit) General Chemistry 01/20/19 12:42:00 Glucose POC2: 182 mg/dL -- Normal range between ( 70 and 110 ) Patient Name:ZACKARY ANTOINE I have received this information and was given the opportunity to ask questions. Patient/Manager Mac Name: Patient/Manager Mac Signature: Relationship to Patient: Clinician/Hospital Manager Mac Signature: Date: Electronically signed by rBittany, Renetta Conversion Paper Plate Machine Tender [employer] at 01/24/2023 10:28 AM CDT documented in this encounter Plan of Treatment Not on file documented as of this encounter Visit Diagnoses Not on filedocumented in this encounter Care Teams Office Nurse Relationship Specialty Start Date End Date Marielos Amaral, GLUE BONE DRIER [address] [phone] PCP - General Nurse Practitioner 08/18/23 documented as of this encounter
--- OUTSIDE RECORDS SUMMARY | 2025-05-20 12:02 | XMS_ITS | Encounter Summary ---
Author Organization [employer] ([place], [place], [place], [place]) Address [address] [place] [address] Care Team Providers Care Log Chain Feeder Name Role Phone Marielos Amaral APRN Primary Care Provider Encounter Details Date Type Department Care Team (Late st Contact Info) Description 04/12/2020 Transcribed Document [facility] [address] [place] [address] ProviderHaroldo MD [address] [place] [address] Social History Tobacco Use Types Packs/Day Years [...] JOYCE BrittB./Sex: 1950 Male Med Rec #: [id number] Physician: PRINCESS DOCKERY MD-GAE Financial #: [id number] Pt. Type: E Room/Bed: [facility] [place]/ Admit/Disch: 04/12/20 06:32:00 - Institution: [facility] PACU Case Times Entry 1 In PACU I 04/12/20 07:53:00 Ready for PACU 04/12/20 08:26:00 Discharge Discharge from PACU 04/12/20 08:29:00 I [facility] PACU Case Times Audit 04/12/20 08:30:01 White Metal Corrosion Proofer: [id number] Modifier: [id number] <+> 1 Ready for PACU Discharge <+> 1 Discharge from PACU I Finalized By: Roxana Brady, RN Document Signatures Signed By: Roxana Brady, LUIS 04/12/20 08:30 documented in this encounter Plan of Treatment Not on file documented as of this encounter Visit Diagnoses Not on filedocumented in this encounter Care Teams Log Chain Feeder Relationship Specialty Start Date End Date Marielos Amaral, PAPER REELER [address] [phone] PCP - General Nurse Practitioner 08/18/23 documented as of this encounter
--- OUTSIDE RECORDS SUMMARY | 2025-05-20 12:02 | XMS_ITS | Encounter Summary ---
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 Biopsies at that time [...] Axel Hamlin Electronically signed by Brittany [facility] Conversion Reactor Fueling Supervisor Cerner at 01/24/2023 10:38 AM CDT documented in this encounter Plan of Treatment Not on file documented as of this encounter Visit Diagnoses Not on filedocumented in this encounter Care Teams Upholstery Department Supervisor Relationship Specialty Start Date End Date Marielos Amaral APRN [address] [address] PCP - General Nurse Practitioner 08/18/23 documented as of this encounter
--- OUTSIDE RECORDS SUMMARY | 2025-05-20 12:02 | XMS_ITS | Encounter Summary ---
Author Organization [employer] ([place], [place], [place], [place]) Address [address] [place] [address] Care Team Providers Care Flame Annealing Machine Setter Name Role Phone Marielos Amaral KAYE Primary Care Provider [phone] Encounter Details Date Type Department Care Team (Late st Contact Info) Description 02/06/2019 Transcribed Document [facility] [place] Family Medicine [address] [place] [address] ProviderHaroldo MD [address] [place] [address] Social History Tobacco Use Types Packs/Day Years [...] 02/06/2019 8:54 EDT Electronically signed by Brittany [facility] Conversion Ironer Or Presser Cerner at 01/24/2023 10:20 AM CDT documented in this encounter Plan of Treatment Not on file documented as of this encounter Visit Diagnoses Not on filedocumented in this encounter Care Teams Flame Annealing Machine Setter Relationship Specialty Start Date End Date Marielos Amaral, LUNCH TRUCK DRIVER [address] [place] [address] [phone] PCP - General Nurse Practitioner 08/18/23 documented as of this encounter
--- OUTSIDE RECORDS SUMMARY | 2025-05-20 12:02 | XMS_ITS | Encounter Summary ---
Author Organization [employer] ([place], [place], [place], [place]) Address [address] [place] [address] Care Team Providers Care Insurance Assistant Name Role Phone Marielos Amaral APRN Primary Care Provider Encounter Details Date Type Department Care Team (Late st Contact Info) Description 10/17/2019 Transcribed Document [facility] [place] [address] [place] [address] ProviderHaroldo MD [address] [place] [address] Social History Tobacco Use Types Packs/Day Years Used Date Smoking Tobacco: Never Assessed Sex and Gender Information Value Date Recorded Sex Assigned at Not on file Legal Sex Male 3:45 PM CDT Gender Identity Not on file Sexual Orientation Not on file documented as of this encounter Miscellaneous Notes * Cerner Conversion Note - Haroldo ProviderMD - 10/17/2019 1:30 PM BASS GUITAR TEACHER [facility] [address] [place] [id number] DEION ANTOINE :1950 Visit Time:10/14/2019 Your Visit Summary Your Care Team Admitting Physician - PETRA OTRRES MD-INT PHY, UNKNOWN FANY MCCRACKEN MD Attending Physician - PETRA TORRES MD-INT FANY MCCRACKEN MD Primary Care Physician - KATELYN MCKEON MD-[facility] Referring Physician - FANY MCCRACKEN MD Your [...] (carb controlled) Follow-Up Appointments Follow Up with [facility] Cardiology When Within 1 to 2 weeks Comments for stress test Follow Up with Follow up with primary care provider When Within 2 weeks Comments check TSH Follow Up with ALBERTO RIZVI When Within 6 weeks Comments Patient should call for a follow up appointment with [facility] Neurology. Where: [address] [place] [address] [facility] (1) Warfarin Instructions Notify Provider of Signs/Symptoms [...] 12/26/2017 Document Revised: 12/26/2017 Document Reviewed: 12/26/2017 Pet Ready Interactive Patient Education ?? 2019 [employer]. Stroke Prevention Some medical conditions and [...] lot or have excessive sleepiness. ??? Take sszn-dzj-qnqvnmr and prescription medicines only as told by [...] more information For more information, visit: ??? [place] Stroke Association: www.strokeassociation.org ??? National Stroke Association: [...] 10/30/2005 Document Revised: 10/28/2017 Document Reviewed: 10/28/2017 [employer] Interactive Patient Education ?? 2019 Naow. nitroglycerin (oral/sublingual) ([place]ON[place]ET[place] troe GLI ser in [...] may report side effects to FDA at 8-708-XMK-9511. What other drugs will affect nitroglycerin? Tell your doctor about all your current medicines, especially: ?? aspirin, heparin; ?? medicine used to treat blood clots; ?? blood pressure medication; or ?? ergot medicine--dihydroergotamine, ergotamine, ergonovine, methylergonovine. This list is not complete and many other drugs may affect nitroglycerin. This includes prescription and wnvr-hya-pcrfqxg medicines, vitamins, and herbal products. Not all [...] to ensure that the information provided by [employer]. ('Multum') is accurate, up-to-date, and complete, but no guarantee is made to that effect. Drug information contained herein may be time sensitive. [employer] information has been compiled for use by healthcare practitioners and consumers in the [place] and therefore [employer] does not warrant that uses outside of the [place] are appropriate, unless specifically indicated otherwise. Connect[employer]mes drug information does not endorse drugs, diagnose patients or recommend therapy. [employer] drug information is an informational resource designed [...] effective or appropriate for any given patient. [employer] does not assume any responsibility for any aspect of healthcare administered with the aid of information [employer] provides. The information contained herein is not intended to cover all possible uses, directions, precautions, warnings, drug interactions, allergic reactions, or adverse effects. If you have questions about the drugs you are taking, check with your doctor, nurse or pharmacist. Copyright 3439-5185 [employer]. Version: 15.01. Revision Date: 08/12/2019. levothyroxine (oral/injection) [...] may report side effects to FDA at 4-512-OZG-1500. What other drugs will affect levothyroxine? Many [...] can affect levothyroxine. This includes prescription and bvoe-irn-ttjieal medicines, vitamins, and herbal products. Not all [...] to ensure that the information provided by [employer]. ('Multum') is accurate, up-to-date, and complete, but no guarantee is made to that effect. Drug information contained herein may be time sensitive. ThinkV[employer]ya information has been compiled for use by healthcare practitioners and consumers in the [place] and therefore [employer] does not warrant that uses outside of the [place] are appropriate, unless specifically indicated otherwise. [employer] drug information does not endorse drugs, diagnose patients or recommend therapy. [employer] drug information is an informational resource designed [...] effective or appropriate for any given patient. [employer] does not assume any responsibility for any aspect of healthcare administered with the aid of information [employer] provides. The information contained herein is not intended to cover all possible uses, directions, precautions, warnings, drug interactions, allergic reactions, or adverse effects. If you have questions about the drugs you are taking, check with your doctor, nurse or pharmacist. Copyright 3490-9533 [employer]. Version: 13.04. Revision Date: 05/05/2019. Emergency Awareness [...] Assistance with quitting is available by contacting 5-006-FWMW-NOW. This is a free resource providing counseling, [...] range between ( 0.0 and 7.0 ) Genesee #: 0.73 K/uL -- Normal range between ( 0.16 and 1.00 ) Eos #: 0.12 x10(3)/uL -- Normal range between ( 0.00 and 0.80 ) Genesee %: 8.7 % -- Normal range between [...] was given the opportunity to ask questions. Patient/Crate Repairer Name: Patient/Crate Repairer Signature: Relationship to Patient: Clinician/Hospital Crate Repairer Signature: Date: Electronically signed by Brittany, [facility] Conversion Process Improvement Engineer Cerner at 01/24/2023 10:35 AM CDT documented in this encounter Plan of Treatment Not on file documented as of this encounter Visit Diagnoses Not on filedocumented in this encounter Care Teams Insurance Assistant Relationship Specialty Start Date End Date Marielos Amaral, WIRE WORKER [address] [place] [address] PCP - General Nurse Practitioner 08/18/23 documented as of this encounter
--- OUTSIDE RECORDS SUMMARY | 2025-05-20 12:02 | XMS_ITS | Encounter Summary ---
Author Organization [employer] ([place], [place], [place], [place]) Address [address] [place] [address] Care Team Providers Care Mechanical Tech Name Role Phone Marielos Amaral KAYE Primary Care Provider Encounter Details Date Type Department Care Team (Late st Contact Info) Description 10/18/2019 Transcribed Document [facility] [place] Family Medicine [address] [place] [address] ProviderHaroldo MD [address] [place] [address] Social History Tobacco Use Types Packs/Day Years Used Date Smoking Tobacco: Never Assessed Sex and Gender Information Value Date Recorded Sex Assigned at Not on file Legal Sex Male 3:45 PM CDT Gender Identity Not on file Sexual Orientation Not on file documented as of this encounter Miscellaneous Notes * Cerner Conversion Note - Haroldo ProviderMD - 10/18/2019 8:56 AM TORPEDO WORKER Discharge Summary, PT Entered On: 10/18/2019 8:57 EST Performed On: 10/18/2019 8:56 EST by JACQUELYN KIM, PT Discharge Summary Reason for Discharge : Discharged from hospital Discharged to, Therapy : Home, with family care Discharge Summary Comment, PT : As of 10/17/2019: Patient was modified independent tkpqkd-dsa-wzvhp and ambulated 300' no AD with supervision [...] JACQUELYN KIM, PT - 10/18/2019 8:56 EST Jack Frame Tender Goals Ambulation LTG Grid Goal #1 Device : None Distance : 400' Assist : Independent, complete Date to Meet : 10/29/2019 EST Goal Status : Not met JACQUELYN KIM, PT - 10/18/2019 8:56 EST Electronically signed by [facility] Conversion Clerk Of Works Cerner at 01/24/2023 10:41 AM CDT documented in this encounter Plan of Treatment Not on file documented as of this encounter Visit Diagnoses Not on filedocumented in this encounter Care Teams Mechanical Tech Relationship Specialty Start Date End Date Marielos Amaral APRN [address] [address] PCP - General Nurse Practitioner 08/18/23 documented as of this encounter
--- OUTSIDE RECORDS SUMMARY | 2025-05-20 12:02 | XMS_ITS | Encounter Summary ---
Author Organization [employer] ([place], [place], [place], [place]) Address [address] [place] [address] Care Team Providers Care Assistant Import Manager Name Role Phone Marielos Amaral GARMENT LOOPER Primary Care Provider [phone] Encounter Details Date Type Department Care Team (Late st Contact Info) Description 01/20/2019 Transcribed Document [facility] [place] Family Medicine [address] [place] [address] ProviderHaroldo MD [address] [place] [address] Social History Tobacco Use Types Packs/Day Years Used Date Smoking Tobacco: Never Assessed Sex and Gender Information Value Date Recorded Sex Assigned at Not on file Legal Sex Male 3:45 PM CDT Gender Identity Not on file Sexual Orientation Not on file documented as of this encounter Miscellaneous Notes * Cerner Conversion Note - Haroldo ProviderMD - 01/20/2019 2:37 PM CDT [address] [address] ELINA ZACKARY COOK :1950 Visit [...] up with Dr Lopez as needed Where: [address] [place] [address]- Medications What How Much When Instructions Next [...] Document Reviewed: 12/01/2012 ExitCare?? Patient Information ??2015 [employer]Buddy. This information is not intended to replace [...] including vitamins, herbs, eye drops, creams, and vdub-mns-wdxyhvm medicines. ???Previous problems you or members of [...] Document Reviewed: 08/25/2013 ExitCare?? Patient Information ??2015 [employer]Buddy. This information is not intended to replace [...] including vitamins, herbs, eye drops, creams, and zomv-jkd-wqnjwfq medicines. ??? Previous problems you or members [...] 07/13/2014 Document Revised: 10/13/2015 Document Reviewed: 07/13/2014 [employer] Interactive Patient Education ?? 2017 Cou[employer]ez Inc.. Emergency Awareness and Preventative Care STROKE is [...] Assistance with quitting is available by contacting 0-839-TLQF-NOW. This is a free resource providing counseling, [...] computer, smartphone, or tablet. Just go to [employer]™ to get started. Questions? Call . Test Results Laboratory or Other Results This Visit (last charted value for your 01/20/2019 visit) General Chemistry 01/20/19 12:42:00 Glucose POC2: 182 mg/dL -- Normal range between ( 70 and 110 ) Patient Name:ZACKARY ANTOINE I have received this information and was given the opportunity to ask questions. Patient/Auctioneer Art Name: Patient/Auctioneer Art Signature: Relationship to Patient: Clinician/Hospital Auctioneer Art Signature: Date: documented in this encounter Plan of Treatment Not on file documented as of this encounter Visit Diagnoses Not on filedocumented in this encounter Care Teams Assistant Import Manager Relationship Specialty Start Date End Date Marielos Amaral, GARMENT LOOPER [address] [phone] PCP - General Nurse Practitioner 08/18/23 documented as of this encounter
--- OUTSIDE RECORDS SUMMARY | 2025-05-20 12:02 | XMS_ITS | Encounter Summary ---
Author Organization [employer] ([place], [place], [place], [place]) Address [address] [place] [address] Care Team Providers Care Title Assistant Name Role Phone Marielos Amaral APRN Primary Care Provider Encounter Details Date Type Department Care Team (Late st Contact Info) Description 02/05/2019 Transcribed Document [facility] [place] Family Medicine [facility] [place] [address] ProviderHaroldo MD [address] [place] [address] Social History Tobacco Use Types Packs/Day Years [...] to right arm and loss of balance marketing mgr strength equal bilaterally decreased sensation to right [...] history: cardiac catheterization. hernia repair. tonsillectomy. Cholecystectomy; (25389). appendectomy. left arm surgery. coronary stents.. Family [...] EDT Height Source Stated Height Entry Format Montgomery Height/Length, DANISH (ft) 5 ft Height/Length DANISH 9 Inch CLINICALHEIGHT 175.26 cm Empire Body Weight 69.73 kg Weight Source, ED Critical estimated dosing weight Weight Entry Format Montgomery Weight Thai lb 175 lb CLINICALWEIGHT 79.55 [...] have the patient admitted to hospitalist. Neurology fire protection fabricator was contacted who recommended CTA brain perfusion [...] ED Adult Triage: ED Clinical Reconciliation: ED dump grounds checker: Lipase Level: Peripheral IV Insertion: Troponin I Ultra: . Electrocardiogram: Time 02/05/2019 21:53:00, rate 79, normal sinus rhythm, No ST changes, no ectopy, normal OK & QRS intervals, EP Interp, Normal sinus [...] % 20.5 % Lymph # 2.34 x10(3)/uL Bledsoe % 8.7 % Bledsoe # 0.99 K/uL Eos % 1.0 % Eos # 0.12 x10(3)/uL Baso % 0.4 % Baso # 0.05 x10(3)/uL Slide Review No IG# 0.09 x10(3)/uL HI IG% 0.80 % HI Alcohol <3 mg/dL NA %Alcohol <.00 NA . Radiology results: Radiology Results (Last 48 hours) [id number] -- 02/05/2019 23:59 CT Head WO (02/05/2019 [...] instructions. Notes: I certify that the Physician Electrical Assemblies Supervisor performed the services as delegated. I agree with the assessment, treatment plan and disposition of the patient as recorded by the Physician Electrical Assemblies Supervisor, Dr. Kaur. documented in this encounter Plan of Treatment Not on file documented as of this encounter Visit Diagnoses Not on filedocumented in this encounter Care Teams Title Assistant Relationship Specialty Start Date End Date Marielos Amaral, BURLAP BAG SEWER [address] [place] [address] PCP - General Nurse Practitioner 08/18/23 documented as of this encounter
--- OUTSIDE RECORDS SUMMARY | 2025-05-20 12:02 | XMS_ITS | Encounter Summary ---
Author Organization [employer] ([place], [place], [place], [place]) Address [address] [place] [address] Care Team Providers Care Nuclear Design Engineer Name Role Phone Marielos Amaral DANCE COSTUME DESIGNER Primary Care Provider Encounter Details Date Type Department Care Team (Late st Contact Info) Description 10/17/2019 Transcribed Document [facility] [place] Family Medicine [address] [place] [address] ProviderHaroldo MD [address] [place] [address] Social History Tobacco Use Types Packs/Day Years Used Date Smoking Tobacco: Never Assessed Sex and Gender Information Value Date Recorded Sex Assigned at Not on file Legal Sex Male 3:45 PM CDT Gender Identity Not on file Sexual Orientation Not on file documented as of this encounter Miscellaneous Notes * Cerner Conversion Note - Historical ProviderMD - 10/17/2019 11:43 AM MACHINING MANAGER Patient: ZACKARY ANTOINE Age: 68 Years [...] PRN Eliquis, 5 mg= 1 Tab, Oral, [id number] Flomax, 0.4 mg= 1 Cap, Oral, Daily [...] Push, Q4H, PRN Electronically signed by Brittany [facility] Conversion Household Refrigeration Mechanic Kodak at 01/24/2023 10:40 AM CDT documented in this encounter Plan of Treatment Not on file documented as of this encounter Visit Diagnoses Not on filedocumented in this encounter Care Teams Nuclear Design Engineer Relationship Specialty Start Date End Date Marielos Amaral, DANCE COSTUME DESIGNER [address] [phone] PCP - General Nurse Practitioner 08/18/23 documented as of this encounter
--- OUTSIDE RECORDS SUMMARY | 2025-05-20 12:02 | XMS_ITS | Encounter Summary ---
Author Organization [employer] ([place], [place], [place], [place]) Address [address] [place] [address] Care Team Providers Care Motivational Speaker Name Role Phone Marielos Amaral KAYE Primary Care Provider [phone] Encounter Details Date Type Department Care Team (Late st Contact Info) Description 10/18/2019 Transcribed Document [facility] [place] [address] [place] [address] ProviderHaroldo MD [address] [place] [address] Social History Tobacco Use Types Packs/Day Years Used Date Smoking Tobacco: Never Assessed Sex and Gender Information Value Date Recorded Sex Assigned at Not on file Legal Sex Male 3:45 PM CDT Gender Identity Not on file Sexual Orientation Not on file documented as of this encounter Miscellaneous Notes * Cerner Conversion Note - Haroldo ProviderMD - 10/18/2019 8:04 AM LADLE FILLER UM Authorization Entered On: 10/18/2019 8:04 EST Performed On: 10/18/2019 8:04 EST by DIONE REY Crm Administrator Primary Insurance Authorization Authorization and Policy Numbers : Insurance 1 Health Plan: [employer] eMar PLUS HMO Policy Number: [id number] Authorization Number: Insurance Primary Name : [employer] GOLD PLUS HMO Policy Number: [id number] Authorization Status-Primary : Notification only Auth/Referral Contact Name-Primary : Wenceslao R Authorization Number-Primary : [id number] Authorized Service Begin Date-Primary : 10/14/2019 EST Authorization Comments-Primary : inpt approved per email from Wenceslao Schmidt with [employer] auth# [id number] Historical Authorization Comments-Primary : Comment 1: ref# per star notes (Mary Haynes, Rn-Utilization Review 10/15/2019 08:57) Comment 2: clinical faxed per norma for ip auth (Mary Haynes, Rn-Utilization Review 10/15/2019 08:55) DIONE REY, Crm Administrator - 10/18/2019 8:04 EST Electronically signed by Brittany [facility] Conversion Photocopier Technician Cerner at 01/24/2023 10:23 AM CDT documented in this encounter Plan of Treatment Not on file documented as of this encounter Visit Diagnoses Not on filedocumented in this encounter Care Teams Motivational Speaker Relationship Specialty Start Date End Date AmaralRosettee, PASTRY COOK [address] [address] PCP - General Nurse Practitioner 08/18/23 documented as of this encounter
--- OUTSIDE RECORDS SUMMARY | 2025-05-20 12:02 | XMS_ITS | Encounter Summary ---
Author Organization [employer] ([place], [place], [place], [place]) Address [address] [place] [address] Care Team Providers Care Program Checker Name Role Phone Marielos Amaral APRN Primary Care Provider Encounter Details Date Type Department Care Team (Late st Contact Info) Description 10/17/2019 Transcribed Document [facility] [place] Family Medicine [address] [place] [address] ProviderHaroldo MD [address] [place] [address] Social History Tobacco Use Types Packs/Day Years Used Date Smoking Tobacco: Never Assessed Sex and Gender Information Value Date Recorded Sex Assigned at Not on file Legal Sex Male 3:45 PM CDT Gender Identity Not on file Sexual Orientation Not on file documented as of this encounter Miscellaneous Notes * Cerner Conversion Note - Haroldo ProviderMD - 10/17/2019 3:39 PM MOLDER TRIMMER Patient: ZACKARY ANTOINE Age: 68 years Sex: Male : 1950 Associated Diagnoses: None Author: MAGED FORD MD-INT Subjective ADMIT DATE: 10/14/2018 DISCHARGE DATE: 10/17/2018 PCP: dr. Boubacar Ball ADMIT MD: dr. Lopes CONSULT TEAMS: [facility] Cardiology [facility] Neurology REASON FOR ADMIT: 68-year-old male with [...] (OCT 14) Radiology Results (Last 48 hours) [id number] -- 10/14/2019 17:19 CT Head WO (10/15/2019 [...] Daily FOLLOW UP: pcp in 2 weeks [facility] Cardiology in 1-[address] Krish Bose in 6 weeks I spent over 30 min today CC1: dr. Boubacar Ball CC2: [facility] Cardiology CC3: dr. Rutherford Electronically signed by Brittany [facility] Conversion Fruit Picker Machine Operator Kodak at 01/24/2023 10:35 AM CDT documented in this encounter Plan of Treatment Not on file documented as of this encounter Visit Diagnoses Not on filedocumented in this encounter Care Teams Program Checker Relationship Specialty Start Date End Date Marielos Amaral, MINING ANALYST [address] [place] [address] PCP - General Nurse Practitioner 08/18/23 documented as of this encounter
--- OUTSIDE RECORDS SUMMARY | 2025-05-20 12:02 | XMS_ITS | Encounter Summary ---
Author Organization [employer] ([place], [place], [place], [place]) Address [address] [place] [address] Care Team Providers Care Tax Lawyer Name Role Phone Marielos Amaral APRN Primary Care Provider Encounter Details Date Type Department Care Team (Late st Contact Info) Description 01/20/2019 Transcribed Document [facility] [place] Family Medicine [address] [place] [address] ProviderHaroldo MD [address] [place] [address] Social History Tobacco Use Types Packs/Day Years [...] ELINAZACKARY /Sex: 1950 Male Med Rec #: [id number] Physician: PRINCESS DOCKERY MD-GAE Financial #: [id number] Pt. Type: O Room/Bed: N/18 Admit/Disch: 01/20/19 12:15:00 - Institution: [facility] PreOp Case Times Entry 1 In Preop 01/20/19 12:28:00 Ready for Holding n/a Room Patient Ready for 01/20/19 12:48:00 Surgery Patient Out of Preop 01/20/19 12:50:00 Patient Out of n/a Holding Room [facility] PreOp Case Times Audit 01/20/19 12:48:25 Rewinder Operator: MILLERSH Modifier: MILLERSH <+> 1 Patient Out of Preop <+> 1 Patient Ready for Surgery Finalized By: CORRINA QUINTANA, RN Document Signatures Signed By: CORIRNA QUINTANA RN 01/20/19 12:53 documented in this encounter Plan of Treatment Not on file documented as of this encounter Visit Diagnoses Not on filedocumented in this encounter Care Teams Tax Lawyer Relationship Specialty Start Date End Date Marielos Amaral, KAYE [address] [phone] PCP - General Nurse Practitioner 08/18/23 documented as of this encounter
--- OUTSIDE RECORDS SUMMARY | 2025-05-20 12:02 | XMS_ITS | Encounter Summary ---
Author Organization [employer] ([place], [place], [place], [place]) Address [address] [place] [address] Care Team Providers Care Colleter Name Role Phone Marielos Amaral KAYE Primary Care Provider Encounter Details Date Type Department Care Team (Late st Contact Info) Description 02/06/2019 Transcribed Document [facility] [place] [address] [place] [address] ProviderHaroldo MD [address] [place] [address] Social History Tobacco Use Types Packs/Day Years [...] Framework : Not integrated, provides little strength/resource Jainism Preference : No protestant JORDYN HART - 02/06/2019 14:15 EDT Spiritual Assessment Patient's Community/Relationship : Strength in patient's life Supportive/Healthy Relationships : Yes Supportive Jainism Community : No Spiritual Assessment Comment/Summary Points : Provided reflective listening as Mr. Carrasco processed his swtai, family, and this current hospitalization; Swati is not a resource for Mr. Carrasco; Family is providing emotional support; is at bedside; Expressed gratitude for visit; Expressed no needs at this time; Will follow PRN Spirital Assessment Comment/Summary Report : SPIRITUAL ASSESSMENT COMMENT/SUMMARY No qualifying data available. HEAD, JORDYN - 02/06/2019 14:15 EDT Electronically signed by Brittany [facility] Conversion Order Entry Clerk Cerner at 01/24/2023 10:19 AM CDT documented in this encounter Plan of Treatment Not on file documented as of this encounter Visit Diagnoses Not on filedocumented in this encounter Care Teams Colleter Relationship Specialty Start Date End Date Marielos Amaral, KAYE [address] [place] [address] PCP - General Nurse Practitioner 08/18/23 documented as of this encounter
--- OUTSIDE RECORDS SUMMARY | 2025-05-20 12:02 | XMS_ITS | Encounter Summary ---
Author Organization [employer] ([place], [place], [place], [place]) Address [address] [place] [address] Care Team Providers Care Rare/Endangered Species Specialist Name Role Phone Marielos Amaral APRN Primary Care Provider Encounter Details Date Type Department Care Team (Late st Contact Info) Description 10/17/2019 Transcribed Document [facility] [place] Family Medicine [address] [place] [address] ProviderHaroldo MD [address] [place] [address] Social History Tobacco Use Types Packs/Day Years Used Date Smoking Tobacco: Never Assessed Sex and Gender Information Value Date Recorded Sex Assigned at Not on file Legal Sex Male 3:45 PM CDT Gender Identity Not on file Sexual Orientation Not on file documented as of this encounter Miscellaneous Notes * Cerner Conversion Note - Haroldo ProviderMD - 10/17/2019 1:38 PM REIMBURSEMENT AUDITOR [facility] [address] [place] [id number] DEION ANTOINE :1950 Visit Time:10/14/2019 Your Visit [...] (carb controlled) Follow-Up Appointments Follow Up with [facility] Cardiology When Within 1 to 2 weeks Comments for stress test Follow Up with Follow up with primary care provider When Within 2 weeks Comments check TSH Follow Up with [facility] RIZVI When Within 6 weeks Comments Patient should call for a follow up appointment with [facility] Neurology. Where: [address] [place] [address] [facility] (1) Warfarin Instructions Indication for Warfarin Anticoagulation: [...] 12/26/2017 Document Revised: 12/26/2017 Document Reviewed: 12/26/2017 LIA Interactive Patient Education ?? 2019 LIA Inc. Stroke Prevention Some medical conditions and [...] lot or have excessive sleepiness. ??? Take kmdv-gsr-vhbtthb and prescription medicines only as told by [...] more information For more information, visit: ??? [place] Stroke Association: www.strokeassociation.org ??? National Stroke Association: [...] 10/30/2005 Document Revised: 10/28/2017 Document Reviewed: 10/28/2017 LIA Interactive Patient Education ?? 2019 mInfo. nitroglycerin (oral/sublingual) (ANTONIETTA troe GLI ser in [...] may report side effects to FDA at 0-664-UZR-6189. What other drugs will affect nitroglycerin? Tell your doctor about all your current medicines, especially: ?? aspirin, heparin; ?? medicine used to treat blood clots; ?? blood pressure medication; or ?? ergot medicine--dihydroergotamine, ergotamine, ergonovine, methylergonovine. This list is not complete and many other drugs may affect nitroglycerin. This includes prescription and butm-tub-fuldrow medicines, vitamins, and herbal products. Not all [...] to ensure that the information provided by Tribunat. ('Multum') is accurate, up-to-date, and complete, but no guarantee is made to that effect. Drug information contained herein may be time sensitive. AdWired information has been compiled for use by healthcare practitioners and consumers in the [place] and therefore AdWired does not warrant that uses outside of the [place] are appropriate, unless specifically indicated otherwise. Shield Therapeuticss drug information does not endorse drugs, diagnose patients or recommend therapy. Shield Therapeuticss drug information is an informational resource designed [...] effective or appropriate for any given patient. [employer] does not assume any responsibility for any aspect of healthcare administered with the aid of information AdWired provides. The information contained herein is not intended to cover all possible uses, directions, precautions, warnings, drug interactions, allergic reactions, or adverse effects. If you have questions about the drugs you are taking, check with your doctor, nurse or pharmacist. Copyright 0780-9400 Tribunat. Version: 15.01. Revision Date: 08/12/2019. levothyroxine (oral/injection) [...] may report side effects to FDA at 2-139-ECP-8220. What other drugs will affect levothyroxine? Many [...] can affect levothyroxine. This includes prescription and tftv-mpr-nbhenum medicines, vitamins, and herbal products. Not all [...] to ensure that the information provided by Tribunat. ('Multum') is accurate, up-to-date, and complete, but no guarantee is made to that effect. Drug information contained herein may be time sensitive. AdWired information has been compiled for use by healthcare practitioners and consumers in the [place] and therefore AdWired does not warrant that uses outside of the [place] are appropriate, unless specifically indicated otherwise. Shield The[employer]ss drug information does not endorse drugs, diagnose patients or recommend therapy. Shield The[employer]ss drug information is an informational resource designed [...] effective or appropriate for any given patient. [employer] does not assume any responsibility for any aspect of healthcare administered with the aid of information AdWired provides. The information contained herein is not intended to cover all possible uses, directions, precautions, warnings, drug interactions, allergic reactions, or adverse effects. If you have questions about the drugs you are taking, check with your doctor, nurse or pharmacist. Copyright 3311-0495 Tribunat. Version: 13.04. Revision Date: 05/05/2019. Emergency Awareness [...] Assistance with quitting is available by contacting 6-852-VAZM-NOW. This is a free resource providing counseling, support, and referral. Or you may contact your personal physician. [place] Suicide Prevention Lifeline: The National Suicide Prevention [...] range between ( 0.0 and 7.0 ) [place] #: 0.73 K/uL -- Normal range between ( 0.16 and 1.00 ) Eos #: 0.12 x10(3)/uL -- Normal range between ( 0.00 and 0.80 ) [place] %: 8.7 % -- Normal range between [...] was given the opportunity to ask questions. Patient/Team Psychologist Name: Patient/Team Psychologist Signature: Relationship to Patient: Clinician/Hospital Team Psychologist Signature: Date: documented in this encounter Plan of Treatment Not on file documented as of this encounter Visit Diagnoses Not on filedocumented in this encounter Care Teams Rare/Endangered Species Specialist Relationship Specialty Start Date End Date Marielos Amaral APRN [address] [address] PCP - General Nurse Practitioner 08/18/23 documented as of this encounter
--- OUTSIDE RECORDS SUMMARY | 2025-05-20 12:02 | XMS_ITS | Encounter Summary ---
Author Organization [employer] ([place], [place], [place], [place]) Address [address] [place] [address] Care Team Providers Care School Curriculum Developer Name Role Phone Marielos Amaral KAYE Primary Care Provider Encounter Details Date Type Department Care Team (Late st Contact Info) Description 04/12/[address] [facility] [place] [address] [place] [address] ProviderHaroldo MD [address] [place] [address] Social History Tobacco Use Types Packs/Day Years [...] Source : Stated Height Entry Format : Archer Height, Feet : 5 ft(Converted to: 152 cm, 60 Inch) Height, Inches : 10 Inch(Converted to: 0 ft 10 Inch, 25.40 cm) Clinical Height : 177.8 cm Weight Source : Standing scale Weight Entry Format : Archer Clinical Dosing Weight : 88.64 kg Weight, Pounds : 195 lb Body Surface Area (BSA) : 2.07 m2 Body Mass Index : 28 kg/m2 (HI) Hewitt Body Weight : 72 kg Roxana Brady [...] No. (Last Updated: 01/20/2019 12:43:06 EDT by CRORINA QUINTANA RN) Nutrition/Health: Diabetic, Caffeine intake amount: [...] Roxana Brady RN - 04/12/2020 7:05 EDT [place] Suicide Severity Rating Scale (C-SSRS) CSSRS Past [...] Clint Legal Guardian : No Support Person/Patient Transformation Analyst : Yes Support Person/Pt Rep Name : Enriqueta - Contact Password : melanie Support Person/Pt Rep Contact Information : [phone] Want Family/Rep/Phys Notified of Admit : Yes Name/Contact Info Fam/Rep Notified Adm : na Name/Contact Info Physician Notified Adm : Axel Hamlin Emergency Contact #1 : Enriqueta Carrasco Emergency Contact #1 Emergency Contact #1 Relationship : spouse Emergency Contact #2 : na Emergency Contact #2 Phone Number : na Emergency Contact #2 Relationship : na Primary Language : Sao Tomean Preferred Communication Mode : Verbal Communication Barrier : None Iron Miner Blasting Needed : No Roxana Brady RN - [...] Scale Risk Level : 0-24 Low Risk P[place]or Fall Interventions : Call device within reach, [...] filedocumented in this encounter Care Teams School Curriculum Developer Relationship Specialty Start Date End Date Marielos Amaral APRN [address] [address] PCP - General Nurse Practitioner 08/18/23 documented as of this encounter
--- OUTSIDE RECORDS SUMMARY | 2025-05-20 12:03 | XMS_ITS | Encounter Summary ---
Author Organization [employer] ([place], [place], [place], [place]) Address [address] [place] [address] Care Team Providers Care Bi Analyst Name Role Phone Marielos Amaral KAYE Primary Care Provider Encounter Details Date Type Department Care Team (Late st Contact Info) Description 04/24/2022 Transcribed Document [facility] Radiology [address] [place], [place] [id number] Saba Neal MD [address] [place] [address] [address] [place] [address] Social History Tobacco Use Types Packs/Day Years [...] speak a language other than Swedish at [facility]? Yes 10/30/2024 [...] on filedocumented in this encounter Care Teams Bi Analyst Relationship Specialty Start Date End Date Marielos Amaral, RETENTION REPRESENTATIVE [address] [phone] PCP - General Nurse Practitioner 08/18/23 documented as of this encounter
--- OUTSIDE RECORDS SUMMARY | 2025-05-20 12:03 | XMS_ITS | Encounter Summary ---
Author Organization [employer] ([place], [place], [place], [place]) Address [address] [place] [address] Care Team Providers Care Slipman Name Role Phone Marielos Amaral APRN Primary Care Provider Encounter Details Date Type Department Care Team (Late st Contact Info) Description 10/15/2019 Transcribed Document [facility] [place] Family Medicine [address] [place] [address] ProviderHaroldo MD [address] [place] [address] Social History Tobacco Use Types Packs/Day Years Used Date Smoking Tobacco: Never Assessed Sex and Gender Information Value Date Recorded Sex Assigned at Not on file Legal Sex Male 3:45 PM CDT Gender Identity Not on file Sexual Orientation Not on file documented as of this encounter Miscellaneous Notes * Cerner Conversion Note - Haroldo ProviderMD - 10/15/2019 6:50 PM NEGOTIATOR SALES Patient: DEION ANTOINE Age: 68 years Sex: Male : 1950 Associated Diagnoses: None Author: MANUELA MELENDEZ MD-CAR Basic Information PCP: Dr. Axel Hamlin MD Primary Fryline Attendant: Dr. Tahira Peterson MD / Dr. Bhanu [...] tablet 5 mg = 1 Tab, Oral, [id number] Eliquis 5 mg oral tablet 5 mg [...] Shortness of Breath Eliquis: 5 mg, Oral, [id number] Flomax: 0.4 mg, Oral, Daily Metoprolol Succinate [...] 5 mg oral tablet: 1 Tab, Oral, [id number], 60 Tab, 0 Refill(s) Toprol-XL 25 mg [...] mg tab 5 mg 1 Tab, Oral, Q42OCed atorvastatin 40 mg tab 40 mg 1 [...] list: All Problems Angina / SNOMED CT 120430115 / Confirmed Coronary artery disease / SNOMED CT 4588502557 / Confirmed Diabetes mellitus type II / SNOMED CT 60342289 / Confirmed GERD - Gastro-esophageal reflux disease / SNOMED CT 2190543773 / Confirmed Heart failure / SNOMED CT 174737386 / Confirmed Heart murmur / SNOMED CT 004228624 / Confirmed History of obstructive sleep apnea / IMO 51498812 / Confirmed Hyperlipidemia / SNOMED CT 71897956 / Confirmed Hypertension / SNOMED CT 53154826 / Confirmed Impaired vision / SNOMED CT 88076718 / Confirmed Enlarged prostate / SNOMED CT 041378603 / Confirmed Migraine / SNOMED CT 26881427 / Confirmed Stented coronary artery / SNOMED CT 3399796728 / Confirmed, Active Problems (13) Angina Coronary [...] Cardiac catheterization. hernia repair. Tonsillectomy. Cholecystectomy; (CPT4 50275). Appendectomy. left arm surgery. Coronary stents. Social [...] flowsheet : Measurements 10/15/2019 5:58 EST Height/Length, TRINIDADIAN (ft) 5 ft Height/Length TRINIDADIAN 9 Inch Routine Weight, Kilograms 87.5 kg [...] Normal strength, No deformity. Integumentary: Warm, Dry, [place], Intact, No rash. Neurologic: Alert, Oriented, No [...] 24 Hours) Radiology Results (Last 48 hours) [id number] -- 10/14/2019 17:19 CR Chest 1 Vw [...] from cardiac standpoint. Electronically signed by Brittany, [facility] Conversion Help Desk Administrator [employer] at 01/24/2023 10:45 AM CDT documented in this encounter Plan of Treatment Not on file documented as of this encounter Visit Diagnoses Not on filedocumented in this encounter Care Teams Slipman Relationship Specialty Start Date End Date Marielos Amaral, KAYE [address] [phone] PCP - General Nurse Practitioner 08/18/23 documented as of this encounter
--- OUTSIDE RECORDS SUMMARY | 2025-05-20 12:03 | XMS_ITS | Encounter Summary ---
Author Organization [employer] ([place], [place], [place], [place]) Address [address] [place] [address] Care Team Providers Care Light Bulb Tester Name Role Phone Marielos Amaral INVENTORY CONTROL PLANNER Primary Care Provider Encounter Details Date Type Department Care Team (Late st Contact Info) Description 01/20/2019 Transcribed Document [facility] [place] Family Medicine [address] [place] [address] ProviderHaroldo MD [address] [place] [address] Social History Tobacco Use Types Packs/Day Years Used Date Smoking Tobacco: Never Assessed Sex and Gender Information Value Date Recorded Sex Assigned at Not on file Legal Sex Male 3:45 PM CDT Gender Identity Not on file Sexual Orientation Not on file documented as of this encounter Miscellaneous Notes * Cerner Conversion Note - Haroldo ProviderMD - 01/20/2019 2:38 PM CDT [address] [address] ELINA ZACKARY COOK :1950 Visit [...] with Dr Lopez as needed Where: [address] [place] [address]- Medications What How Much When Instructions Next [...] Document Reviewed: 12/01/2012 ExitCare?? Patient Information ??2015 Treato. This information is not intended to replace [...] including vitamins, herbs, eye drops, creams, and jxwg-uee-zbhyrpg medicines. ???Previous problems you or members of [...] Document Reviewed: 08/25/2013 ExitCare?? Patient Information ??2015 Treato. This information is not intended to replace [...] including vitamins, herbs, eye drops, creams, and pjyt-myh-kgbruth medicines. ??? Previous problems you or members [...] 07/13/2014 Document Revised: 10/13/2015 Document Reviewed: 07/13/2014 The Beer X-Change Interactive Patient Education ?? 2017 Modern Armory. Emergency Awareness and Preventative Care STROKE is [...] Assistance with quitting is available by contacting 2-986-ZDJX-NOW. This is a free resource providing counseling, [...] Be sure to sign up for the [facility] patient portal, which gives you 28/04 access to your medical information ??? including these discharge instructions ??? using your computer, smartphone, or tablet. Just go to [employer] to get started. Questions? Call . Test Results Laboratory or Other Results This Visit (last charted value for your 01/20/2019 visit) General Chemistry 01/20/19 12:42:00 Glucose POC2: 182 mg/dL -- Normal range between ( 70 and 110 ) Patient Name:ZACKARY ANTOINE I have received this information and was given the opportunity to ask questions. Patient/Cement Mason Helper Name: Patient/Cement Mason Helper Signature: Relationship to Patient: Clinician/Hospital Cement Mason Helper Signature: Date: Electronically signed by Brittany, Renetta Conversion Aeronautical Research Engineer [employer] at 01/24/2023 10:26 AM CDT documented in this encounter Plan of Treatment Not on file documented as of this encounter Visit Diagnoses Not on filedocumented in this encounter Care Teams Light Bulb Tester Relationship Specialty Start Date End Date Marielos Amaral, INVENTORY CONTROL PLANNER [address] [phone] PCP - General Nurse Practitioner 08/18/23 documented as of this encounter
--- OUTSIDE RECORDS SUMMARY | 2025-05-20 12:03 | XMS_ITS | Encounter Summary ---
Author Organization [employer] ([place], [place], [place], [place]) Address [address] [place] [address] Care Team Providers Care Director Of Restaurant Operations Name Role Phone Marielos Amaral APRN Primary Care Provider Encounter Details Date Type Department Care Team (Late st Contact Info) Description 10/17/2019 Transcribed Document [facility] [place] Family Medicine [address] [place] [address] ProviderHaroldo MD [address] [place] [address] Social History Tobacco Use Types Packs/Day Years Used Date Smoking Tobacco: Never Assessed Sex and Gender Information Value Date Recorded Sex Assigned at Not on file Legal Sex Male 3:45 PM CDT Gender Identity Not on file Sexual Orientation Not on file documented as of this encounter Miscellaneous Notes * Cerner Conversion Note - Haroldo ProviderMD - 10/17/2019 1:46 PM BOWLING BALL WEIGHER AND PACKER [facility] [address] [place] [id number] DEION ANTOINE :1950 Visit Time:10/14/2019 Your Visit Summary Your Care Team Admitting Physician - PETRA TORRES MD-INT PH[facility], UNKNOWN FANY MCCRACKEN MD Attending Physician - PETRA TORRES MD-INT FANY MCCRACKEN MD Primary Care Physician - KATELYN MCKEON MD-[facility] Referring Physician - FANY MCCRACKEN MD Your [...] Follow-Up Appointments Follow Up with [facility] Cardiology When Within 1 to 2 weeks Comments for stress test Follow Up with Follow up with primary care provider When Within 2 weeks Comments check TSH Follow Up with [facility] When Within 6 weeks Comments Patient should call for a follow up appointment with [facility] Neurology. Where: [address] [phone] [facility] (1) Warfarin Instructions Indication for Warfarin Anticoagulation: [...] 12/26/2017 Document Revised: 12/26/2017 Document Reviewed: 12/26/2017 LiquidPractice Interactive Patient Education ?? 2019 LiquidPractice Inc. Stroke Prevention Some medical conditions and [...] lot or have excessive sleepiness. ??? Take kfms-eiv-vvlkjiu and prescription medicines only as told by [...] more information For more information, visit: ??? [place] Stroke Association: www.strokeassociation.org ??? National Stroke Association: [...] 10/30/2005 Document Revised: 10/28/2017 Document Reviewed: 10/28/2017 LiquidPractice Interactive Patient Education ?? 2019 Easycause. nitroglycerin (oral/sublingual) (ANTONIETTA troe GLI ser in [...] may report side effects to FDA at 3-077-QBN-6652. What other drugs will affect nitroglycerin? Tell your doctor about all your current medicines, especially: ?? aspirin, heparin; ?? medicine used to treat blood clots; ?? blood pressure medication; or ?? ergot medicine--dihydroergotamine, ergotamine, ergonovine, methylergonovine. This list is not complete and many other drugs may affect nitroglycerin. This includes prescription and krvp-ayk-glxmmbx medicines, vitamins, and herbal products. Not all [...] to ensure that the information provided by ecoATM. ('Multum') is accurate, up-to-date, and complete, but no guarantee is made to that effect. Drug information contained herein may be time sensitive. Mobile Backstage information has been compiled for use by healthcare practitioners and consumers in the [place] and therefore Mobile Backstage does not warrant that uses outside of the [place] are appropriate, unless specifically indicated otherwise. Mobile Backstage's drug information does not endorse drugs, diagnose patients or recommend therapy. PARCXMART TECHNOLOGIESs drug information is an informational resource designed [...] effective or appropriate for any given patient. Mobile Back[employer] does not assume any responsibility for any aspect of healthcare administered with the aid of information Mobile Backstage provides. The information contained herein is not intended to cover all possible uses, directions, precautions, warnings, drug interactions, allergic reactions, or adverse effects. If you have questions about the drugs you are taking, check with your doctor, nurse or pharmacist. Copyright 5348-9239 ecoATM. Version: 15.01. Revision Date: 08/12/2019. levothyroxine (oral/injection) [...] may report side effects to FDA at 4-932-GDS-4228. What other drugs will affect levothyroxine? Many [...] can affect levothyroxine. This includes prescription and nbbt-vnp-moltaho medicines, vitamins, and herbal products. Not all [...] to ensure that the information provided by ecoATM. ('Clean Platesum') is accurate, up-to-date, and complete, but no guarantee is made to that effect. Drug information contained herein may be time sensitive. Mobile Backstage information has been compiled for use by healthcare practitioners and consumers in the [place] and therefore Mobile Backstage does not warrant that uses outside of the [place] are appropriate, unless specifically indicated otherwise. PARCXM[employer]s drug information does not endorse drugs, diagnose patients or recommend therapy. PAR[employer]s drug information is an informational resource designed [...] effective or appropriate for any given patient. Mobile [employer] does not assume any responsibility for any aspect of healthcare administered with the aid of information Mobile Backstage provides. The information contained herein is not intended to cover all possible uses, directions, precautions, warnings, drug interactions, allergic reactions, or adverse effects. If you have questions about the drugs you are taking, check with your doctor, nurse or pharmacist. Copyright 5645-8952 ecoATM. Version: 13.04. Revision Date: 05/05/2019. Emergency Awareness [...] Assistance with quitting is available by contacting 9-904-DCOSNOW. This is a free resource providing counseling, support, and referral. Or you may contact your personal physician. [place] Suicide Prevention Lifeline: The National Suicide Prevention [...] range between ( 0.0 and 7.0 ) [place] #: 0.73 K/uL -- Normal range between ( 0.16 and 1.00 ) Eos #: 0.12 x10(3)/uL -- Normal range between ( 0.00 and 0.80 ) [place] %: 8.7 % -- Normal range between [...] was given the opportunity to ask questions. Patient/Trackmobile Operator Name: Patient/Trackmobile Operator Signature: Relationship to Patient: Clinician/Hospital Trackmobile Operator Signature: Date: Electronically signed by Brittany [facility] Conversion Finance Specialist [employer] at 01/24/2023 10:19 AM CDT documented in this encounter Plan of Treatment Not on file documented as of this encounter Visit Diagnoses Not on filedocumented in this encounter Care Teams Director Of Restaurant Operations Relationship Specialty Start Date End Date Marielos Amaral APRN [address] [address] PCP - General Nurse Practitioner 08/18/23 documented as of this encounter
--- OUTSIDE RECORDS SUMMARY | 2025-05-20 12:03 | XMS_ITS | Encounter Summary ---
Author Organization [employer] ([place], [place], [place], [place]) Address [address] [place] [address] Care Team Providers Care Ballpoint Pen Cartridge Tester Name Role Phone Marielos Amaral KAYE Primary Care Provider [phone] Encounter Details Date Type Department Care Team (Late st Contact Info) Description 04/25/2022 Transcribed Document [facility] Radiology [address] [place], [place] [id number] Saba Neal MD [address] [place] [address] [address] [place] [address] Social History Tobacco Use Types Packs/Day Years [...] speak a language other than [place] at [facility]? Yes 10/30/2024 Do you [...] Other (See Comment) Eliquis: 2.5 mg, Oral, [id number] Flomax: 0.4 mg, Oral, Daily Lokelma: 15 Gram, Oral, 1-Time Metoprolol Succinate ER: 50 mg, Oral, Daily Normal Saline 1,000 mL: 100 mL/Hr, IntraVENous Rocephin: 1 Gram, 100 mL/Hr, IV Piggyback, [id number] Tylenol: 650 mg, Oral, Q4H, PRN: Pain [...] mg tab 2.5 mg 1 Tab, Oral, [id number] atorvastatin 40 mg tab 40 mg 1 Tab, Oral, At Bedtime cefTRIAXone 1 Gram, IV Piggyback, H57ZSph cholecalciferol 1,000 unit tab 1,000 Units 1 [...] list: Medical Atrial fibrillation / SNOMED CT 46987450 / Confirmed CAD - Coronary artery disease / SNOMED CT 3919745552 / Confirmed Cardiomyopathy / SNOMED CT 857359037 / Confirmed Acute cerebrovascular accident (CVA) / SNOMED CT 158242768 / Confirmed History of obstructive sleep apnea / IMO 10803059 / Confirmed HLD - Hyperlipidemia / SNOMED CT 346143253 / Confirmed HTN - Hypertension / SNOMED CT 1970950209 / Confirmed Type 2 diabetes mellitus / SNOMED CT 445512073 / Confirmed, Active Problems (20) Acute cerebrovascular [...] 27.6 \ Radiology Results (Last 48 hours) [id number] -- 04/22/2022 12:30 US Renal Comp (04/23/2022 [...] Stop 04/25/22 10:00:00 EDT, 04/25/22 9:59:00 EDT PRAAM WEBBER MD tamsulosin (Flomax) 0.4 mg, Oral, [...] on filedocumented in this encounter Care Teams Ballpoint Pen Cartridge Tester Relationship Specialty Start Date End Date Marielos Amaral, MAT ROLLER [address] [place] [address] PCP - General Nurse Practitioner 08/18/23 documented as of this encounter
--- OUTSIDE RECORDS SUMMARY | 2025-05-20 12:03 | XMS_ITS | Encounter Summary ---
Author Organization [employer] ([place], [place], [place], [place]) Address [address] [place] [address] Care Team Providers Care Sulphate Tester Name Role Phone Munir Marielos RESTREPO Primary Care Provider Encounter Details Date Type Department Care Team (Late st Contact Info) Description 04/24/2022 Transcribed Document [facility] [place] [address] [place] [address] ProviderHaroldo MD [address] [place] [address] Social History Tobacco Use Types [...] Do you speak a language other than [place] at [facility]? Yes 10/30/2024 [...] 04/24/2022 13:02 EDT Electronically signed by Brittany [facility] Conversion Hvac Service Tech Cerner at 01/24/2023 10:35 AM CDT documented in this encounter Plan of Treatment Not on file documented as of this encounter Visit Diagnoses Not on filedocumented in this encounter Care Teams Sulphate Tester Relationship Specialty Start Date End Date Marielos Amaral, CAREER CENTER ADVISOR [address] [place] [address] PCP - General Nurse Practitioner 08/18/23 documented as of this encounter
--- OUTSIDE RECORDS SUMMARY | 2025-05-20 12:03 | XMS_ITS | Encounter Summary ---
Author Organization [employer] ([place], [place], [place], [place]) Address [address] [place] [address] Care Team Providers Care Automotive Detailer Name Role Phone Marielos Amaral KAYE Primary Care Provider Encounter Details Date Type Department Care Team (Late st Contact Info) Description 10/17/2019 Transcribed Document [facility] [place] [address] [place] [address] ProviderHaroldo MD [address] [place] [address] Social History Tobacco Use Types Packs/Day Years Used Date Smoking Tobacco: Never Assessed Sex and Gender Information Value Date Recorded Sex Assigned at Not on file Legal Sex Male 3:45 PM CDT Gender Identity Not on file Sexual Orientation Not on file documented as of this encounter Miscellaneous Notes * Cerner Conversion Note - Haroldo ProviderMD - 10/17/2019 12:15 PM SIGNAL OPERATOR TECHNICAL Patient Education Materials Follows: Hospital Discharge After [...] 12/26/2017 Document Revised: 12/26/2017 Document Reviewed: 12/26/2017 [employer] Interactive Patient Education ? 2019 [employer] Stroke Prevention Some medical conditions and [...] lot or have excessive sleepiness. ??? Take cjzh-kju-phshluz and prescription medicines only as told by [...] For more information, visit: ??? Citizen Of [place] Stroke Association: www.strokeassociation.org ??? National Stroke Association: [...] 10/28/2017 [employer] Interactive Patient Education ? 2019 [employer] documented in this encounter Plan of Treatment Not on file documented as of this encounter Visit Diagnoses Not on filedocumented in this encounter Care Teams Automotive Detailer Relationship Specialty Start Date End Date Marielos Amaral APRN [address] [address] PCP - General Nurse Practitioner 08/18/23 documented as of this encounter
--- OUTSIDE RECORDS SUMMARY | 2025-05-20 12:03 | XMS_ITS | Encounter Summary ---
Author Organization [employer] ([place], [place], [place], [place]) Address [address] [place] [address] Care Team Providers Care Leather Splitter Name Role Phone Munir Marielos RESTREPO Primary Care Provider Encounter Details Date Type Department Care Team (Late st Contact Info) Description 04/24/2022 Transcribed Document [facility] [place] Medicine [address] [place] [address] ProviderHaroldo MD [address] [place] [address] Social History Tobacco Use [...] Do you speak a language other than [place] at [facility]? [...] Other (See Comment) Eliquis: 2.5 mg, Oral, [id number] Flomax: 0.4 mg, Oral, Daily Metoprolol Succinate ER: 50 mg, Oral, Daily Normal Saline 1,000 mL: 100 mL/Hr, IntraVENous Rocephin: 1 Gram, 100 mL/Hr, IV Piggyback, S50LRxa Tylenol: 650 mg, Oral, Q4H, PRN: Pain [...] mg tab 2.5 mg 1 Tab, Oral, S40FWdj atorvastatin 40 mg tab 40 mg 1 Tab, Oral, At Bedtime cefTRIAXone 1 Gram, IV Piggyback, L83EIee cholecalciferol 1,000 unit tab 1,000 Units 1 [...] list: Medical Atrial fibrillation / SNOMED CT 96873665 / Confirmed CAD - Coronary artery disease / SNOMED CT 1448297828 / Confirmed Cardiomyopathy / SNOMED CT 727587807 / Confirmed Acute cerebrovascular accident (CVA) / SNOMED CT 529646341 / Confirmed History of obstructive sleep apnea / IMO 71657139 / Confirmed HLD - Hyperlipidemia / SNOMED CT 649571061 / Confirmed HTN - Hypertension / SNOMED CT 2684105973 / Confirmed Type 2 diabetes mellitus / SNOMED CT 931277838 / Confirmed, Active Problems (20) Acute cerebrovascular [...] Gastrointestinal: Soft, Non-tender, Non-distended. Integumentary: Warm, Dry, [place]. Neurologic: Alert, Oriented, No focal deficits. Psychiatric: [...] renal diet. - No emergent need of CLINIC PHYSICIAN. Will follow. documented in this encounter Plan of Treatment Not on file documented as of this encounter Visit Diagnoses Not on filedocumented in this encounter Care Teams Leather Splitter Relationship Specialty Start Date End Date Marielos Amaral, WOOL SAMPLER [address] [address] PCP - General Nurse Practitioner 08/18/23 documented as of this encounter
--- OUTSIDE RECORDS SUMMARY | 2025-05-20 12:03 | XMS_ITS | Encounter Summary ---
Author Organization [employer] ([place], [place], [place], [place]) Address [address] [place] [address] Care Team Providers Care Enterprise Engineer Name Role Phone Marielos Amaral KAYE Primary Care Provider Encounter Details Date Type Department Care Team (Late st Contact Info) Description 10/16/2019 Transcribed Document [facility] [place] Family Medicine [address] [place] [address] ProviderHaroldo MD [address] [place] [address] Social History Tobacco Use Types Packs/Day Years Used Date Smoking Tobacco: Never Assessed Sex and Gender Information Value Date Recorded Sex Assigned at Not on file Legal Sex Male 3:45 PM CDT Gender Identity Not on file Sexual Orientation Not on file documented as of this encounter Miscellaneous Notes * Cerner Conversion Note - Haroldo ProviderMD - 10/16/2019 5:00 AM BANKRUPTCY JUDGE Chart Check - Review Order Profile Entered On: 10/16/2019 5:38 EST Performed On: 10/16/2019 5:00 EST by Vanessa Blake RN Chart Check Powerplans Initiated/Discontinued as Appropriate : Yes All Active Orders Reviewed : Yes Vanessa Blake RN - 10/16/2019 5:38 EST Electronically signed by Brittany [facility] Conversion Chief Order Dispatcher Cerner at 01/24/2023 10:29 AM CDT documented in this encounter Plan of Treatment Not on file documented as of this encounter Visit Diagnoses Not on filedocumented in this encounter Care Teams Enterprise Engineer Relationship Specialty Start Date End Date Marielos Amaral, GRID MOLDER [address] [place] [address] PCP - General Nurse Practitioner 08/18/23 documented as of this encounter
--- OUTSIDE RECORDS SUMMARY | 2025-05-20 12:03 | XMS_ITS | Encounter Summary ---
Author Organization [employer] ([place], [place], [place], [place]) Address [address] [place] [address] Care Team Providers Care Payment Analyst Name Role Phone Marielos Amaral APRN Primary Care Provider Encounter Details Date Type Department Care Team (Late st Contact Info) Description 10/16/2019 Transcribed Document [facility] Radiology [address] [place] [phone] Camilo Steven MD [address] [place] [address] Social History Tobacco Use Types Packs/Day Years [...] flowsheet : Measurements 10/15/2019 5:58 EST Height/Length, SWEDISH (ft) 5 ft Height/Length SWEDISH 9 Inch Routine Weight, Kilograms 87.5 kg [...] Normal strength, No deformity. Integumentary: Warm, Dry, [place], No rash. Neurologic: Alert, Oriented, No focal deficits. Psychiatric: Cooperative, Appropriate mood & affect. Results Review OCT 16 04:19 138 109 15 / H 134 3.8 24 1.30 \ Cardiac Markers (Current Encounter/Past 24 Hours) CK MB 1.20 ng/mL 10/15/2019 16:28 CK 101 Units/Liter 10/15/2019 04:57 Radiology Results (Last 48 hours) [id number] -- 10/14/2019 17:19 CR Chest 1 Vw [...] on filedocumented in this encounter Care Teams Payment Analyst Relationship Specialty Start Date End Date Marielos Amaral, KAYE [address] [place] [address] PCP - General Nurse Practitioner 11/13/23 documented as of this encounter
--- OUTSIDE RECORDS SUMMARY | 2025-05-20 12:03 | XMS_ITS | Encounter Summary ---
Author Organization [employer] ([place], [place], [place], [place]) Address [address] [place] [address] Care Team Providers Care Asphalt Heater Tender Name Role Phone Marielos Amaral KAYE Primary Care Provider Encounter Details Date Type Department Care Team (Late st Contact Info) Description 10/16/2019 Transcribed Document [facility] [place] Medicine [address] [place] [address] ProviderHaroldo MD [address] [place] [address] Social History Tobacco Use Types Packs/Day Years Used Date Smoking Tobacco: Never Assessed Sex and Gender Information Value Date Recorded Sex Assigned at Not on file Legal Sex Male 3:45 PM CDT Gender Identity Not on file Sexual Orientation Not on file documented as of this encounter Miscellaneous Notes * Cerner Conversion Note - Haroldo ProviderMD - 10/16/2019 2:00 AM DRAWER IN HAND Pot Feeder Details Entered On: 10/16/2019 0:45 EST Performed [...] 10/16/2019 0:45 EST Electronically signed by Brittany [facility] Conversion Senior Sourcing Manager Cerner at 01/24/2023 10:21 AM CDT documented in this encounter Plan of Treatment Not on file documented as of this encounter Visit Diagnoses Not on filedocumented in this encounter Care Teams Asphalt Heater Tender Relationship Specialty Start Date End Date Marielos Amaral, KAYE [address] [place] [phone] PCP - General Nurse Practitioner 08/18/23 documented as of this encounter
--- OUTSIDE RECORDS SUMMARY | 2025-05-20 12:03 | XMS_ITS | Encounter Summary ---
Author Organization [employer] ([place], [place], [place], [place]) Address [address] [place] [address] Care Team Providers Care Dairy Consultant Name Role Phone Marielos Amaral KAYE Primary Care Provider Encounter Details Date Type Department Care Team (Late st Contact Info) Description 10/15/2019 Transcribed Document [facility] [place] [address] [place] [address] ProviderHaroldo MD [address] [place] [address] Social History Tobacco Use Types Packs/Day Years Used Date Smoking Tobacco: Never Assessed Sex and Gender Information Value Date Recorded Sex Assigned at Not on file Legal Sex Male 3:45 PM CDT Gender Identity Not on file Sexual Orientation Not on file documented as of this encounter Miscellaneous Notes * Cerner Conversion Note - Haroldo ProviderMD - 10/15/2019 8:55 AM TECHNICAL SUPPORT ASSISTANT UM Authorization Entered On: 10/15/2019 8:56 EST Performed On: 10/15/2019 8:55 EST by Mary Haynes Rn-Utilization Review Primary Insurance Authorization Authorization and Policy Numbers : Insurance 1 Health Plan: [employer] Policy Number: [id number] Authorization Number: Insurance Primary Name : [employer] Policy Number: [id number] Authorization Status-Primary : Awaiting callback Reference Number-Primary : [id number] Authorized Service Begin Date-Primary : 10/14/2019 EST Authorization Comments-Primary : clinical faxed per norma for ip auth Historical Authorization Comments-Primary : No Authorization Comments Found Mary Haynes Rn-Utilization Review - 10/15/2019 8:55 EST Electronically signed by Renetta Stoo Conversion Bandage Wrapping Machine Operator Cerner at 01/24/2023 10:44 AM CDT documented in this encounter Plan of Treatment Not on file documented as of this encounter Visit Diagnoses Not on filedocumented in this encounter Care Teams Dairy Consultant Relationship Specialty Start Date End Date Marielos Amaral, CONTRACTS ATTORNEY [address] [place] [address] PCP - General Nurse Practitioner 08/18/23 documented as of this encounter
--- OUTSIDE RECORDS SUMMARY | 2025-05-20 12:03 | XMS_ITS | Encounter Summary ---
Author Organization [employer] ([place], [place], [place], [place]) Address [address] [place] [address] Care Team Providers Care Asphalt Mixer Name Role Phone Marielos Amaral KAYE Primary Care Provider Encounter Details Date Type Department Care Team (Late st Contact Info) Description 04/24/2022 Transcribed Document [facility] Radiology [address] [place], [place] [phone] Saba Neal MD [address] [place] [address] [address] [place] [address] Social History Tobacco Use Types Packs/Day Years [...] than Citizen Of [place] at [facility]? Yes 10/30/2024 Do you want help [...] Other (See Comment) Eliquis: 2.5 mg, Oral, Z91DVxx Normal Saline 1,000 mL: 100 mL/Hr, IntraVENous Rocephin: 1 Gram, 100 mL/Hr, IV Piggyback, K52FJsz Tylenol: 650 mg, Oral, Q4H, PRN: Pain [...] mg tab 2.5 mg 1 Tab, Oral, J95IPio atorvastatin 40 mg tab 40 mg 1 Tab, Oral, At Bedtime cefTRIAXone 1 Gram, IV Piggyback, T90HIjs cholecalciferol 1,000 unit tab 1,000 Units 1 [...] list: Medical Atrial fibrillation / SNOMED CT 12596131 / Confirmed CAD - Coronary artery disease / SNOMED CT 4841400696 / Confirmed Cardiomyopathy / SNOMED CT 458369528 / Confirmed Acute cerebrovascular accident (CVA) / SNOMED CT 049734724 / Confirmed History of obstructive sleep apnea / IMO 82995149 / Confirmed HLD - Hyperlipidemia / SNOMED CT 600947378 / Confirmed HTN - Hypertension / SNOMED CT 6572399891 / Confirmed Type 2 diabetes mellitus / SNOMED CT 739548465 / Confirmed, Active Problems (20) Acute cerebrovascular [...] data available Radiology Results (Last 48 hours) [id number] -- 04/22/2022 12:30 CT Head WO (04/22/2022 [...] filedocumented in this encounter Care Teams Asphalt Mixer Relationship Specialty Start Date End Date Marielos Amaral, SCANNER OPERATOR [address] [phone] PCP - General Nurse Practitioner 08/18/23 documented as of this encounter
--- OUTSIDE RECORDS SUMMARY | 2025-05-20 12:03 | XMS_ITS | Encounter Summary ---
Author Organization [employer] ([place], [place], [place], [place]) Address [address] [place] [address] Care Team Providers Care Applied Anthropologist Name Role Phone Marielos Amaral KAYE Primary Care Provider Encounter Details Date Type Department Care Team (Late st Contact Info) Description 10/15/2019 Transcribed Document [facility] [place] Family Medicine [address] [place] [address] ProviderHaroldo MD [address] [place] [address] Social History Tobacco Use Types Packs/Day Years Used Date Smoking Tobacco: Never Assessed Sex and Gender Information Value Date Recorded Sex Assigned at Not on file Legal Sex Male 3:45 PM CDT Gender Identity Not on file Sexual Orientation Not on file documented as of this encounter Miscellaneous Notes * Cerner Conversion Note - Haroldo ProviderMD - 10/15/2019 8:58 AM ANALYTICAL RESEARCH CHEMIST POWDER CORE TESTER Attempt to Treat Entered On: 10/15/2019 8:58 EST Performed On: 10/15/2019 8:58 EST by BIPIN LEE SLP Attempt to Treat Unable to Treat Due To : Patient Unavailable Inability to Treat Comment : Patient is off unit for test, will follow up later in day. Notification : BIPIN HURLEY, RAMONA - 10/15/2019 8:58 EST Electronically signed by Brittany [facility] Conversion Edge Banding Machine Offbearer Cerner at 01/24/2023 10:45 AM CDT documented in this encounter Plan of Treatment Not on file documented as of this encounter Visit Diagnoses Not on filedocumented in this encounter Care Teams Applied Anthropologist Relationship Specialty Start Date End Date Marielos Amaral, WASTE HANDLING TECHNICIAN [address] [place] [address] PCP - General Nurse Practitioner 08/18/23 documented as of this encounter
--- OUTSIDE RECORDS SUMMARY | 2025-05-20 12:03 | XMS_ITS | Encounter Summary ---
Author Organization [email or web address] ([place], [place], [place], [place]) Address [address] [place] [address] Care Team Providers Care Motor Coach Chauffeur Name Role Phone AmaralMarielos roque KAYE Primary Care Provider Encounter Details Date Type Department Care Team (Late st Contact Info) Description 10/16/2019 Transcribed Document [facility] [place] Medicine [address] [place] [address] ProviderHaroldo MD [address] [place] [address] Social History Tobacco Use Types Packs/Day Years Used Date Smoking Tobacco: Never Assessed Sex and Gender Information Value Date Recorded Sex Assigned at Not on file Legal Sex Male 3:45 PM CDT Gender Identity Not on file Sexual Orientation Not on file documented as of this encounter Miscellaneous Notes * Cerner Conversion Note - Haroldo Warren MD - 10/16/2019 12:58 PM WOOD HEEL BACK LINER Discharge Instructions Entered On: 10/16/2019 12:59 EST [...] filedocumented in this encounter Care Teams Motor Coach Chauffeur Relationship Specialty Start Date End Date Marielos Aamral APRN [address] [address] PCP - General Nurse Practitioner 08/18/23 documented as of this encounter
--- OUTSIDE RECORDS SUMMARY | 2025-05-20 12:03 | XMS_ITS | Encounter Summary ---
Author Organization [employer] ([place], [place], [place], [place]) Address [address] [place] [address] Care Team Providers Care Telegraphic Typewriter Installer Name Role Phone Marielos Amaral APRN Primary Care Provider Encounter Details Date Type Department Care Team (Late st Contact Info) Description 01/20/2019 Transcribed Document [facility] [place] Family Medicine [address] [place] [address] ProviderHaroldo MD [address] [place] [address] Social History Tobacco Use Types Packs/Day Years [...] ELINADEION /Sex: 1950 Male Med Rec #: [id number] Physician: PRINCESS DOCKERY MD-GAE Financial #: [id number] Pt. Type: O Room/Bed: N/18 Admit/Disch: 01/20/19 12:15:00 - Institution: [facility] [place] Endo - Case Attendance Entry 1 Entry 2 Entry 3 Case Attendee PRINCESS DOCKERY, Ivone Humphreys, BRYANT BRADY, E COMMERCE PROJECT MANAGER KRIS Role Performed Surgeon/Proceduralist, Tool Design Draftsperson, First E COMMERCE PROJECT MANAGER/Nurse Laborer Vineyard First Time In 01/20/19 14:08:00 01/20/19 14:08:00 [...] Ivone Sanders, LUIS 01/20/19 14:24:59 01/20/19 14:24:59 [facility] Endo - Case Attendance Audit 01/20/19 14:24:59 Revenue Inspector: CHASKNEA Modifier: BICKNEA 1 <+> Time Out 1 <*> Procedure EGD w Radiofrequency Ablation 2 <+> Time Out 2 <*> Procedure EGD w Radiofrequency Ablation 3 <+> Time Out 3 <*> Procedure EGD w Radiofrequency Ablation 4 <+> Time Out 4 <*> Procedure EGD w Radiofrequency Ablation 5 <+> Time Out 5 <*> Procedure EGD w Radiofrequency Ablation 01/20/19 14:09:48 Revenue Inspector: BICKNEA Modifier: BICKNEA <+> 1 Procedure 2 [...] Endo - Case Times Audit 01/20/19 14:24:56 Revenue Inspector: BICKNEA Modifier: BICKNEA <+> 1 Out Room Time <+> 1 Stop Time 01/20/19 14:24:49 Revenue Inspector: BICKNEA Modifier: BICKNEA <+> 1 Stop Time 01/20/19 14:13:29 Revenue Inspector: BICKNEA Modifier: BICKNEA <+> 1 Start Time <+> 1 Anesthesia Ready [facility] - Cautery Entry 1 ESU Identification Cautery Type Other Cautery Type halo flex Comments ID Number [id number] ID Type Hospital Number Cautery Settings ESU Grounding Pad Last Modified By: Ivone Humphreys RN 01/20/19 14:27:00 [facility] - Cautery Audit 01/20/19 14:27:00 Revenue Inspector: BICKNEA Modifier: BICKNEA <+> 1 ID Number [...] 01/20/19 14:09:52 E Endo - General Case Survey Research Analyst 1 Case Information [facility] Endo 03 E Case Level 1 Room Verified Yes Wound Class II - Clean-Contaminated Specialty SN Gastroenterology Anesthesia Type MAC ASA Class 3 Diagnosis Preop Diagnosis K22.719 BARRETTS ESOPHAGUS W/DYSPLASIA Postop Diagnosis hiatal hernia and barretts Last Modified By: Ivone Humphreys RN 01/20/19 14:16:45 [facility] Endo - General Case Data Audit 01/20/19 14:16:45 Revenue Inspector: BICLAWANDAEA Modifier: BICKNEA <+> 1 Postop Diagnosis [...] Entry 1 Medication/Irrigant Mucomyst 200mg/1ml 10ml - [id number] Time Administered 01/20/19 14:14:00 Route of Esophageal Wash Administration Dose Dose 10 Unit of Measure ml Volume mixed in 57ml of water Administered By PRINCESS DOCKERY MD-GAE Procedure Irrigation Last Modified By: Ivone Humphreys RN 01/20/19 14:24:46 [facility] - Medication Admin Audit 01/20/19 14:24:46 Revenue Inspector: ZAC Modifier: BICKNEA 1 <*> Medication/Irrigant Mucomyst 200mg/1ml 10ml - [id number] 1 <*> Dose 5 [facility] - [...] Endo - Surgical Procedures Audit 01/20/19 14:25:03 Revenue Inspector: BICKNEA Modifier: BICKNEA <+> 1 Stop 01/20/19 14:13:35 Revenue Inspector: BICKNEA Modifier: BICKNEA <+> 1 Start 01/20/19 14:11:53 Revenue Inspector: BICKNEA Modifier: BICKNEA 1 <*> Procedure EGD w Radiofrequency Ablation 1 <+> Specialty [facility] Endo - Time Out Entry 1 Procedure [...] RN 01/20/19 14:27 Electronically signed by Brittany [facility] Conversion Library Science Instructor Cerner at 01/24/2023 10:26 AM CDT documented in this encounter Plan of Treatment Not on file documented as of this encounter Visit Diagnoses Not on filedocumented in this encounter Care Teams Telegraphic Typewriter Installer Relationship Specialty Start Date End Date Marielos Amaral APRN [address] [address] PCP - General Nurse Practitioner 08/18/23 documented as of this encounter
--- OUTSIDE RECORDS SUMMARY | 2025-05-20 12:03 | XMS_ITS | Encounter Summary ---
Author Organization [employer] ([place], [place], [place], [place]) Address [address] [place] [address] Care Team Providers Care Metal Off Bearer Name Role Phone Munir Marielos RESTREPO Primary Care Provider Encounter Details Date Type Department Care Team (Late st Contact Info) Description 04/25/2022 Transcribed Document [facility] [place] [address] [place] [address] ProviderHaroldo MD [address] [place] [address] Social History Tobacco Use [...] speak a language other than Scottish at [facility]? Yes [...] On: 04/25/2022 16:19 EDT by LEXX LOWRY RN-Engraver Lettering Initial Assessment I Previously Documented Living Environment : No qualifying data available. Living Situation : Home Patient Lives With : Spouse Emergency Contact #1 : Kar Carrasco Emergency Contact #1 Emergency Contact #1 Relationship : Emergency Contact #2 : January Black Emergency Contact #2 Emergency Contact #2 Relationship : daughter Identified Medical Decision Maker : self 2nd Ident. Medical Decision Maker : Kar Carrasco 2nd Ident. Medical Decision Maker Secondary Number of People in Class : 1 2nd Ident. Medical Decision Maker Class : Medical Durable Power of Station Repairer Name : None on file Legal Guardian : No Is Guardianship Needed : No LEXX LOWRY RN-Engraver Lettering - 04/25/2022 16:19 EDT Initial Assessment II Sensory and Motor Deficits : None Current Home Treatments and Equipment : Bedside commode, Blood glucose monitor, Cane, CPAP, Shower chair, Walker Does the Patient have a Floor to SNF Benefit? : No LEXX LOWRY RN-Engraver Lettering - 04/25/2022 16:19 EDT Discharge Needs I Anticipated Discharge Date : 04/27/2022 EDT Anticipated Discharge To, CM : Home with family care Current Home Treatment/Equipment : Current Home Treatment/Equipment No qualifying data available. Post Acute/Home Treatments : None Documentation Status Complete : Yes LEXX LOWRY RN-Engraver Lettering - 04/25/2022 16:19 EDT Discharge Needs II Professional Skilled Services : Professional Skilled Services No qualifying data available. Needs Assistance with Transportation : No Discharge Options Discussed with Patient : DME, Home Health Patient Discharge Goal : Home LEXX LOWRY, RN-Engraver Lettering - 04/25/2022 16:19 EDT documented in this encounter Plan of Treatment Not on file documented as of this encounter Visit Diagnoses Not on filedocumented in this encounter Care Teams Metal Off Bearer Relationship Specialty Start Date End Date Marielos Amaral, COSMETICS COUNTER MANAGER [address] [place] [address] PCP - General Nurse Practitioner 08/18/23 documented as of this encounter
--- OUTSIDE RECORDS SUMMARY | 2025-05-20 12:03 | XMS_ITS | Encounter Summary ---
Author Organization [employer] ([place], [place], [place], [place]) Address [address] [place] [address] Care Team Providers Care Information Technology Architect Name Role Phone Marielos Amaral KAYE Primary Care Provider Encounter Details Date Type Department Care Team (Late st Contact Info) Description 10/15/2019 Transcribed Document [facility] [place] [address] [place] [address] ProviderHaroldo MD [address] [place] [address] Social History Tobacco Use Types Packs/Day Years Used Date Smoking Tobacco: Never Assessed Sex and Gender Information Value Date Recorded Sex Assigned at Not on file Legal Sex Male 3:45 PM CDT Gender Identity Not on file Sexual Orientation Not on file documented as of this encounter Miscellaneous Notes * Cerner Conversion Note - Haroldo ProviderMD - 10/15/2019 8:57 AM HAZARDOUS MATERIALS WASTE TECHNICIAN UM Authorization Entered On: 10/15/2019 8:57 EST Performed On: 10/15/2019 8:57 EST by Mary Haynes Rn-Utilization Review Primary Insurance Authorization Authorization and Policy Numbers : Insurance 1 Health Plan: [employer] Policy Number: [id number] Authorization Number: Insurance Primary Name : [employer] Policy Number: [id number] Authorization Status-Primary : Awaiting callback Reference Number-Primary : [id number] Authorized Service Begin Date-Primary : 10/14/2019 EST Authorization Comments-Primary : ref# per star notes Historical Authorization Comments-Primary : Comment 1: clinical faxed per [facility] for ip auth (Mary Haynes, Rn-Utilization Review 10/15/2019 08:55) Mary Haynes, Rn-Utilization Review - 10/15/2019 8:57 EST Electronically signed by [facility] Conversion Cloth Printing Utility Worker Cerner at 01/24/2023 10:43 AM CDT documented in this encounter Plan of Treatment Not on file documented as of this encounter Visit Diagnoses Not on filedocumented in this encounter Care Teams Information Technology Architect Relationship Specialty Start Date End Date Marielos Amaral, SOFTWARE ASSET MANAGEMENT ANALYST [address] [place] [address] PCP - General Nurse Practitioner 08/18/23 documented as of this encounter
--- OUTSIDE RECORDS SUMMARY | 2025-05-20 12:03 | XMS_ITS | Encounter Summary ---
Author Organization [employer] ([place], [place], [place], [place]) Address [address] [place] [address] Care Team Providers Care Hand Driller Name Role Phone AmaralMarielos roque KAYE Primary Care Provider Encounter Details Date Type Department Care Team (Late st Contact Info) Description 10/17/2019 Transcribed Document [facility] [place] [address] [place] [address] ProviderHaroldo MD [address] [place] [address] Social History Tobacco Use Types Packs/Day Years Used Date Smoking Tobacco: Never Assessed Sex and Gender Information Value Date Recorded Sex Assigned at Not on file Legal Sex Male 3:45 PM CDT Gender Identity Not on file Sexual Orientation Not on file documented as of this encounter Miscellaneous Notes * Cerner Conversion Note - Haroldo ProviderMD - 10/17/2019 12:17 PM QUALITY ENGINEER MEDICAL DEVICE Stroke/Warfarin Instructions Entered On: 10/17/2019 12:18 EST [...] filedocumented in this encounter Care Teams Hand Driller Relationship Specialty Start Date End Date Marielos Amaral APRN [address] [address] PCP - General Nurse Practitioner 08/18/23 documented as of this encounter
--- OUTSIDE RECORDS SUMMARY | 2025-05-20 12:03 | XMS_ITS | Encounter Summary ---
Author Organization [employer] ([place], [place], [place], [place]) Address [address] [place] [address] Care Team Providers Care First Line Production Supervisor Name Role Phone Marielos Amaral DIRECTOR ORACLE Primary Care Provider Encounter Details Date Type Department Care Team (Late st Contact Info) Description 10/16/2019 Transcribed Document [facility] [place] [address] [place] [address] ProviderHaroldo MD [address] [place] [address] Social History Tobacco Use Types Packs/Day Years Used Date Smoking Tobacco: Never Assessed Sex and Gender Information Value Date Recorded Sex Assigned at Not on file Legal Sex Male 3:45 PM CDT Gender Identity Not on file Sexual Orientation Not on file documented as of this encounter Miscellaneous Notes * Cerner Conversion Note - Haroldo ProviderMD - 10/16/2019 3:33 PM MORTGAGE OPERATIONS MANAGER Patient: ZACKARY ANTOINE Age: 68 years Sex: [...] Shortness of Breath Eliquis: 5 mg, Oral, [id number] Flomax: 0.4 mg, Oral, Daily Metoprolol Succinate [...] 5 mg oral tablet: 1 Tab, Oral, [id number], 60 Tab, 0 Refill(s) Toprol-XL 25 mg [...] tablet 5 mg = 1 Tab, Oral, [id number] Eliquis 5 mg oral tablet 5 mg [...] mg tab 5 mg 1 Tab, Oral, [id number] atorvastatin 40 mg tab 40 mg 1 [...] History of obstructive sleep apnea / IMO [id number] / Confirmed, Active Problems (13) Angina Coronary [...] (OCT 14) Radiology Results (Last 48 hours) [id number] -- 10/14/2019 17:19 CT Head WO Code [...] on filedocumented in this encounter Care Teams First Line Production Supervisor Relationship Specialty Start Date End Date Marielos Amaral, DIRECTOR ORACLE [address] [place] [address] PCP - General Nurse Practitioner 08/18/23 documented as of this encounter
--- OUTSIDE RECORDS SUMMARY | 2025-05-20 12:03 | XMS_ITS | Encounter Summary ---
Author Organization [employer] ([place], [place], [place], [place]) Address [address] [place] [address] Care Team Providers Care Commercial Instructor Supervisor Name Role Phone Marielos Amaral KAYE Primary Care Provider Encounter Details Date Type Department Care Team (Late st Contact Info) Description 10/16/2019 Transcribed Document [facility] [place] [address] [place] [address] ProviderHaroldo MD [address] [place] [address] Social History Tobacco Use Types Packs/Day Years Used Date Smoking Tobacco: Never Assessed Sex and Gender Information Value Date Recorded Sex Assigned at Not on file Legal Sex Male 3:45 PM CDT Gender Identity Not on file Sexual Orientation Not on file documented as of this encounter Miscellaneous Notes * Cerjude Conversion Note - Haroldo ProviderMD - 10/16/2019 5:00 PM COAL PASSER Chart Check - Review Order Profile Entered On: 10/16/2019 17:15 EST Performed On: 10/16/2019 17:00 EST by Deysi Valdes RN Chart Check Powerplans Initiated/Discontinued as Appropriate : Yes All Active Orders Reviewed : Yes Deysi Valdes RN - 10/16/2019 17:15 EST Electronically signed by Brittany [facility] Conversion Radio Engineer Cerner at 01/24/2023 10:45 AM CDT documented in this encounter Plan of Treatment Not on file documented as of this encounter Visit Diagnoses Not on filedocumented in this encounter Care Teams Commercial Instructor Supervisor Relationship Specialty Start Date End Date Marielos Amaral, TUBE STATION ATTENDANT [address] [place] [address] PCP - General Nurse Practitioner 08/18/23 documented as of this encounter
--- OUTSIDE RECORDS SUMMARY | 2025-05-20 12:03 | XMS_ITS | Encounter Summary ---
Author Organization [employer] ([place], [place], [place], [place]) Address [address] [place] [address] Care Team Providers Care Tuck Pointer Helper Name Role Phone Marielos Amaral KAYE Primary Care Provider Encounter Details Date Type Department Care Team (Late st Contact Info) Description 10/17/2019 Transcribed Document [facility] [place] [address] [place] [address] ProviderHaroldo MD [address] [place] [address] Social History Tobacco Use Types Packs/Day Years Used Date Smoking Tobacco: Never Assessed Sex and Gender Information Value Date Recorded Sex Assigned at Not on file Legal Sex Male 3:45 PM CDT Gender Identity Not on file Sexual Orientation Not on file documented as of this encounter Miscellaneous Notes * Cerner Conversion Note - Haroldo ProviderMD - 10/17/2019 11:41 AM LOCAL DELIVERY DRIVER Final Discharge Planning Entered On: 10/17/2019 11:42 EST Performed On: 10/17/2019 11:41 EST by HARITHA BARRIOS Rn-Coordinator Of Health Services Final Discharge Planning Discharge Arrangements : Patient Post-Acute Information Patient Name: ZACKARY ANTOINE Gender: Male : [birth year] Age: 68 Years No Post-Acute Placement(s) Listed No Post-Acute Service(s) Listed No [place] Referral(s) Listed Important Medicare Message Reviewed With : Patient Important Medicare Message Reviewed D/T : 10/17/2019 11:40 EST Follow Up Appointment Scheduled : No Discharge To Care Management : Home/Residential/Residential or Self Care - HARITHA BARRIOS Rn-Coordinator Of Health Services - 10/17/2019 11:41 EST Final Narrative Note Final Narrative Note : Transport home with spouse; unable to make f/u appt on weekend; pt verbalized he will contact his PCP to make appt. HARITHA BARRIOS Rn-Coordinator Of Health Services - 10/17/2019 11:41 EST documented in this encounter Plan of Treatment Not on file documented as of this encounter Visit Diagnoses Not on filedocumented in this encounter Care Teams Tuck Pointer Helper Relationship Specialty Start Date End Date Marielos Amaral APRN [address] [address] PCP - General Nurse Practitioner 08/18/23 documented as of this encounter
--- NOTE | 2025-05-20 12:04 | EXP.CARD.PN ---
Subjective Subjective Date: 05/20/25 Time: 12:05 Principal diagnosis: HFrEF, nonsustained V. tach Interval history: 74-year-old white male in bed in no acute distress. Relates no issues overnight. Ready for AICD implantation today. Exam Data for Last 24 hours Vital signs and Labs for Last 24 Hours: Temp Pulse Resp BP Pulse Ox O2 Del Method O2 Flow Rate 98.3 F 76 20 133/71 97 Room Air 2 05/20/25 08:00 05/20/25 08:00 05/20/25 08:00 05/20/25 08:00 05/20/25 08:00 05/20/25 09:55 05/19/25 12:15 Laboratory Results - last 24 hr 05/19/25 12:26: WBC 14.5 H, RBC 4.32 L, Hgb 13.0 L, Hct 38.1 L, MCV 88.2, MCH 30.1, MCHC 34.1, RDW 15.2, Plt Count 286 D, MPV 9.8, Neut % (Auto) 78.4, Lymph % (Auto) 11.0, [place] % (Auto) 9.0, Eos % (Auto) 0.5, Baso % (Auto) 0.4, Neut # (Auto) 11.4 H, Lymph # (Auto) 1.6, [place] # (Auto) 1.3 H, Eos # (Auto) 0.1, Baso # (Auto) 0.1, Sodium 133 L, Potassium 3.6, Chloride 95 L, Carbon Dioxide 29, Anion Gap 12.6, BUN 62 H, Creatinine 3.70 H, Estimated Creat Clear 20, Estimated GFR 16 L*, Est GFR ( Amer) 20 L, Glucose 48 L*, Calcium 8.9, Total Bilirubin 0.6, AST 43, ALT 43, Alkaline Phosphatase 125, Troponin I 0.05 H, Total Protein 7.8, Albumin 4.3, Globulin 3.5 H, Albumin/Globulin Ratio 1.2 05/19/25 15:39: POC Glucose 243 H 05/19/25 15:40: Troponin I 0.05 H 05/19/25 18:32: Troponin I 0.04 H 05/19/25 20:32: POC Glucose 424 H* 05/20/25 05:43: POC Glucose 127 H 05/20/25 05:44: WBC 8.1 D, RBC 4.07 L, Hgb 12.0 L, Hct 35.8 L, MCV 88.0, MCH 29.5, MCHC 33.5, RDW 15.4, Plt Count 208 D, MPV 9.9, Neut % (Auto) 62.9, Lymph % (Auto) 24.0, [place] % (Auto) 10.5 H, Eos % (Auto) 1.7, Baso % (Auto) 0.4, Neut # (Auto) 5.1, Lymph # (Auto) 2.0, [place] # (Auto) 0.9, Eos # (Auto) 0.1, Baso # (Auto) 0.0, Sodium 133 L, Potassium 4.5 D, Chloride 95 L, Carbon Dioxide 32 H, Anion Gap 10.5, BUN 63 H, Creatinine 3.70 H, Estimated Creat Clear 21, Estimated GFR 16 L*, Est GFR ( Amer) 20 L, Glucose 125 H D, Calcium 9.1, Magnesium 2.5 H, Total Bilirubin 0.5, AST 36, ALT 36, Alkaline Phosphatase 108, Total Protein 7.3, Albumin 4.1, Globulin 3.2, Albumin/Globulin Ratio 1.3, Free T4 1.27 05/20/25 08:50: Sodium 131 L, Potassium 3.7, Chloride 96 L, Carbon Dioxide 28, Anion Gap 10.7, BUN 59 H, Creatinine 3.30 H, Estimated Creat Clear 23, Estimated GFR 18 L*, Est GFR ( Amer) 22 L, Glucose 138 H, Calcium 8.9, Total Creatine Kinase 106, TSH 7.94 H 05/20/25 09:50: Ur Random Urea Nitrogn 577, Urine Creatinine 81, Urine Sodium 34.0 05/20/25 09:53: POC Glucose 177 H I & O for Last 24 hours: Intake & Output 05/18/25 05/19/25 05/20/25 05/21/25 11:59 11:59 11:59 11:59 Intake Total 1090 / 1090 Output Total 1974 Balance -885 / -885 Weight 180 lb 3.2 oz Constitutional Constitutional: no acute distress *Routine Respiratory Exam Respiratory: Present CTA bilaterally *Routine Cardiovascular Exam Cardiovascular: Present RRR *Routine Extremities Exam Extremities: Absent edema *Routine Neurological Exam Neurological: Present alert, oriented X3 and CN II-XII intact Progress Note: A&P Assessment and plan (1) Chest pain: Status: Acute (2) Ventricular ectopy: Status: Acute (3) Ischemic cardiomyopathy: Status: Acute (4) HFrEF (heart failure with reduced ejection fraction): Status: Chronic (5) PAF (paroxysmal atrial fibrillation): Status: Acute (6) Uncontrolled type 2 diabetes mellitus: Status: Acute (7) CKD stage 4 due to type 2 diabetes mellitus: Status: Chronic (8) Coronary artery disease: Status: Chronic (9) Hypothyroidism (acquired): Status: Chronic Assessment and Plan Assessment and Plan for All Diagnoses:: 1. Chest pain/stable angina with known coronary artery disease -Chronic mildly elevated troponin -Continue atorvastatin, clopidogrel, metoprolol and isosorbide dinitrate 2. Ventricular ectopy with severe ischemic cardiomyopathy, EF 10-15% -Narrow QRS complex -Increased risk for sudden cardiac -Plan for dual-chamber ICD implantation today 3. HFrEF -Clinically stable on GDMT of metoprolol, Bumex, hydralazine, Isordil. No DEVI/ARB/Arni due to CKD -Chest x-ray this admission unremarkable 4. Paroxysmal atrial fibrillation -Maintaining sinus rhythm on amiodarone therapy -Will hold Xarelto therapy for implantation of ICD tomorrow 5. CKD, stage IV with chronic anemia -Baseline creatinine 2.5-2.7 -Current creatinine 3.3 with GFR 18 -Hemoglobin stable at 13 6. Hypothyroidism -On replacement therapy -TSH 7.94 this admission AICD implantation today. Possible discharge home later today or in a.m. if stable. Resume home medications including Xarelto. Follow-up in our office in 7 to 10 days.
--- OUTSIDE RECORDS SUMMARY | 2025-05-20 12:04 | XMS_ITS | Encounter Summary ---
Author Organization [employer] ([place], [place], [place], [place]) Address [address] [place] [address] Care Team Providers Care Drug Enforcement Administration Agent Name Role Phone Marielos Amaral KAYE Primary Care Provider Encounter Details Date Type Department Care Team (Late st Contact Info) Description 10/15/2019 Transcribed Document [facility] [place] [address] [place] [address] ProviderHaroldo MD [address] [place] [address] Social History Tobacco Use Types Packs/Day Years Used Date Smoking Tobacco: Never Assessed Sex and Gender Information Value Date Recorded Sex Assigned at Not on file Legal Sex Male 3:45 PM CDT Gender Identity Not on file Sexual Orientation Not on file documented as of this encounter Miscellaneous Notes * Cerner Conversion Note - Haroldo ProviderMD - 10/15/2019 9:32 AM ULTRASONIC WELDING MACHINE OPERATOR Patient: ZACKARY ANTOINE Age: 68 [...] on filedocumented in this encounter Care Teams Drug Enforcement Administration Agent Relationship Specialty Start Date End Date Marielos Amaral APRN [address] [address] PCP - General Nurse Practitioner 08/18/23 documented as of this encounter
--- OUTSIDE RECORDS SUMMARY | 2025-05-20 12:04 | XMS_ITS | Encounter Summary ---
Author Organization [employer] ([place], [place], [place], [place]) Address [address] [place] [address] Care Team Providers Care Manager Of Case Management Name Role Phone Marielos Amaral KAYE Primary Care Provider [phone] Encounter Details Date Type Department Care Team (Late st Contact Info) Description 10/15/2019 Transcribed Document [facility] [place] [address] [place] [address] ProviderHaroldo MD [address] [place] [address] Social History Tobacco Use Types Packs/Day Years Used Date Smoking Tobacco: Never Assessed Sex and Gender Information Value Date Recorded Sex Assigned at Not on file Legal Sex Male 3:45 PM CDT Gender Identity Not on file Sexual Orientation Not on file documented as of this encounter Miscellaneous Notes * Cerner Conversion Note - Haroldo ProviderMD - 10/15/2019 3:31 PM IMPLEMENTATION MANAGER Final Discharge Planning Entered On: 10/15/2019 15:31 EST Performed On: 10/15/2019 15:31 EST by HARITHA BARRIOS Rn-Saw Filer Final Discharge Planning Discharge Arrangements : Patient Post-Acute Information Patient Name: ZACKARY ANTOINE Gender: Male : [birth year] Age: 68 Years No Post-Acute Placement(s) Listed No Post-Acute Service(s) Listed No [place] Referral(s) Listed Important Medicare Message Reviewed With : Patient Important Medicare Message Reviewed D/T : 10/15/2019 15:20 EST HARITHA BARRIOS, Rn-Saw Filer - 10/15/2019 15:31 EST Electronically signed by Brittany [facility] Conversion Straightedge Machine Operator Helper Cerner at 01/24/2023 10:37 AM CDT documented in this encounter Plan of Treatment Not on file documented as of this encounter Visit Diagnoses Not on filedocumented in this encounter Care Teams Manager Of Case Management Relationship Specialty Start Date End Date Marielos Amaral, SUPERVISOR FABRICATION AND ASSEMBLY [address] [place] [address] PCP - General Nurse Practitioner 08/18/23 documented as of this encounter
--- OUTSIDE RECORDS SUMMARY | 2025-05-20 12:04 | XMS_ITS | Encounter Summary ---
Author Organization [employer] ([place], [place], [place], [place]) Address [address] [place] [address] Care Team Providers Care Terrazzo Tile Setter Name Role Phone AmaralMarlyMarielosgrace RESTREPO Primary Care Provider Encounter Details Date Type Department Care Team (Late st Contact Info) Description 10/15/2019 Transcribed Document [facility] [place] [address] [place] [address] ProviderHaroldo MD [address] [place] [address] Social History Tobacco Use Types Packs/Day Years Used Date Smoking Tobacco: Never Assessed Sex and Gender Information Value Date Recorded Sex Assigned at Not on file Legal Sex Male 3:45 PM CDT Gender Identity Not on file Sexual Orientation Not on file documented as of this encounter Miscellaneous Notes * Cerner Conversion Note - Historical ProviderMD - 10/15/2019 8:30 AM WEB DEVELOPER Attempt to Treat Entered On: 10/15/2019 8:38 EST Performed On: 10/15/2019 8:30 EST by JORDYN HART Attempt to Treat Unable to Treat Due To : Patient Unavailable Inability to Treat Comment : Getting a bedside ECHO JORDYN HART - 10/15/2019 8:34 EST Electronically signed by Brittany [facility] Conversion Cool Roofing Installer Cerner at 01/24/2023 10:39 AM CDT documented in this encounter Plan of Treatment Not on file documented as of this encounter Visit Diagnoses Not on filedocumented in this encounter Care Teams Terrazzo Tile Setter Relationship Specialty Start Date End Date AmaralMarielos, BRANCH EMPLOYMENT COORDINATOR [address] [place] [address] PCP - General Nurse Practitioner 08/18/23 documented as of this encounter
--- OUTSIDE RECORDS SUMMARY | 2025-05-20 12:04 | XMS_ITS | Encounter Summary ---
Author Organization [employer] ([place], [place], [place], [place]) Address [address] [place] [address] Care Team Providers Care Flooring Machine Operator Name Role Phone Marielos Amaral KAYE Primary Care Provider Encounter Details Date Type Department Care Team (Late st Contact Info) Description 10/15/2019 Transcribed Document [facility] [place] [address] [place] [address] ProviderHaroldo MD [address] [place] [address] Social History Tobacco Use Types Packs/Day Years Used Date Smoking Tobacco: Never Assessed Sex and Gender Information Value Date Recorded Sex Assigned at Not on file Legal Sex Male 3:45 PM CDT Gender Identity Not on file Sexual Orientation Not on file documented as of this encounter Miscellaneous Notes * Cerner Conversion Note - Historical ProviderMD - 10/15/2019 3:40 AM CERTIFIED HAND THERAPIST Attempt to Treat Entered On: 10/15/2019 7:18 EST Performed On: 10/15/2019 3:40 EST by REJI STERLING Chaplain Attempt to Treat Unable to Treat Due To : Other: Indisposed Inability to Treat Comment : Staff working with [facility] plan to Follow up later REJI STERLING Chaplain - 10/15/2019 7:16 EST Electronically signed by Brittany [facility] Conversion Market Garden Worker Cerner at 01/24/2023 10:32 AM CDT documented in this encounter Plan of Treatment Not on file documented as of this encounter Visit Diagnoses Not on filedocumented in this encounter Care Teams Flooring Machine Operator Relationship Specialty Start Date End Date Marielos Amaral, BUYER INTERNSHIP [address] [place] [id number] PCP - General Nurse Practitioner 08/18/23 documented as of this encounter
--- OUTSIDE RECORDS SUMMARY | 2025-05-20 12:04 | XMS_ITS | Encounter Summary ---
Author Organization [employer] ([place], [place], [place], [place]) Address [address] [place] [address] Care Team Providers Care Leather Piece Inspector Name Role Phone Marielos Amaral KAYE Primary Care Provider Encounter Details Date Type Department Care Team (Late st Contact Info) Description 10/15/2019 Transcribed Document [facility] [place] [address] [place] [address] ProviderHaroldo MD [address] [place] [address] Social History Tobacco Use Types Packs/Day Years Used Date Smoking Tobacco: Never Assessed Sex and Gender Information Value Date Recorded Sex Assigned at Not on file Legal Sex Male 3:45 PM CDT Gender Identity Not on file Sexual Orientation Not on file documented as of this encounter Miscellaneous Notes * [employer]ude Conversion Note - Haroldo ProviderMD - 10/15/2019 5:00 PM SENIOR DATA ANALYST Chart Check - Review Order Profile Entered On: 10/15/2019 16:17 EST Performed On: 10/15/2019 17:00 EST by Deysi Valdes RN Chart Check Powerplans Initiated/Discontinued as Appropriate : Yes All Active Orders Reviewed : Yes Deysi Valdes RN - 10/15/2019 16:17 EST Electronically signed by Brittany [facility] Conversion Senior Electronics Engineer Cerner at 01/24/2023 10:39 AM CDT documented in this encounter Plan of Treatment Not on file documented as of this encounter Visit Diagnoses Not on filedocumented in this encounter Care Teams Leather Piece Inspector Relationship Specialty Start Date End Date Marielos Amaral, ICT SYSTEMS TEST ENGINEER [address] [place] [address] PCP - General Nurse Practitioner 08/18/23 documented as of this encounter
[2025-05-20] MEDS: LIDOCAINE 1% W/EPI 1:100,000 20ML VIAL 20 ML SQ (12:11)
[2025-05-20] MEDS: 0.9 % SODIUM CHLORIDE 1000ML 1,000 ML 25 ML IV (12:11)
[2025-05-20] MEDS: CLINDAMYCIN PHOSPHATE 900 MG in 0.9 % SODIUM CHLORIDE 100 ML 100 MG TP (12:12)
[2025-05-20] MEDS: CLINDAMYCIN PHOSPHATE/D5W 900 MG/50 ML PIGGYBACK 100 MG IV (12:13)
--- NOTE | 2025-05-20 13:38 | XR_ITS ---
FINAL REPORT CLINICAL HISTORY: Confirm pacemaker/AID placement COMPARISON: 05/19/2025 FINDINGS: A single frontal view of the chest was obtained. No acute pulmonary opacity is present. There is no evidence of effusion or pneumothorax. Status post CABG. There has been interval placement of a left-sided pacer. Leads are in appropriate position. Heart size is normal. IMPRESSION: Interval placement left-sided pacer with leads in appropriate position. No pneumothorax. Reviewed, Interpreted and Dictated by Devika Johnson MD Transcribed by Veronica Wilder Authenticated and . [facility]
--- NOTE | 2025-05-20 14:04 | PC.NURSE ---
Pulled out some iv white fluid that remained from laborer [facility]. Flushed down the sink.
--- NOTE | 2025-05-20 14:58 | PC.NURSE ---
Left chest dressing 2x2 and tegaderm c/d/i.
[2025-05-20 16:09] LABS: POC Glucose,Bedside 167 (70-110)
[2025-05-20] MEDS: humaLOG 100 UNITS/ML 10ML VIAL (SSI) SUBCUT ×2 (16:10→20:32)
[2025-05-20 20:32] LABS: POC Glucose,Bedside 245 (70-110)
[2025-05-20] MEDS: ATORVASTATIN 40MG TABLET 40 MG PO (20:32)
[2025-05-20] MEDS: PANTOPRAZOLE 40MG TABLET 40 MG PO (20:32)
[2025-05-20] MEDS: INSULIN GLARGINE 100 UNITS/ML 3ML FLEXPEN 35 UNIT SUBCUT (20:32)
[2025-05-20] MEDS: OXYCODONE 5MG W/APAP 325MG TABLET 2 EACH PO (21:07)
--- NOTE | 2025-05-20 21:10 | PC.NURSE ---
patient reports 04/14 incision site pain, site is bruised - tx per mar
[2025-05-21] VITALS: BP 95/49; PULSE 70; RESP 18; TEMP 36.7; O2SAT 97
[2025-05-21 03:53] VITALS: BP 103/51; PULSE 68; RESP 17; TEMP 36.6; O2SAT 97; BMI 26.9
[2025-05-21 04:00] VITALS: PULSE 65
--- NOTE | 2025-05-21 05:45 | PC.NURSE ---
This RN took over care for patient at 0100. Patient has rested well with no complaints. Incision to left upper chest, bruising noted. Cardiac monitoring in going. Room air. Uses urinal. Bed alarm on. Call light in reach.
[2025-05-21] MEDS: LEVOTHYROXINE 100MCG (0.1MG) TAB 100 MCG PO (06:09)
[2025-05-21 06:11] LABS: POC Glucose,Bedside 70 (70-110)
[2025-05-21 08:00] VITALS: BP 115/62; PULSE 74; PULSE 75; RESP 21; TEMP 36.8; O2SAT 97
[2025-05-21] MEDS: DAPAGLIFLOZIN PROPANEDIOL 10 MG TABLET PO (08:56)
[2025-05-21] MEDS: METOPROLOL SUCCINATE XL 25MG TABLET 25 MG PO (08:56)
[2025-05-21] MEDS: HYDRALAZINE 10MG TABLET 20 MG PO (08:56)
[2025-05-21] MEDS: ISOSORBIDE DINITRATE 20 MG TABLET PO (08:56)
[2025-05-21] MEDS: BUMETANIDE 1 MG TABLET 2 MG PO (08:56)
[2025-05-21] MEDS: AMIODARONE 200MG TABLET 200 MG PO (08:57)
[2025-05-21] MEDS: CLOPIDOGREL 75MG TAB 75 MG PO (08:57)
[2025-05-21 09:09] LABS: Hematocrit 35.7 % (42.0-52.0); Hemoglobin 12.1 g/dL (14.1-18.0); Immature Granulocytes % 0.5 %; Mean Corpuscular HGB Conc 33.9 g/dL (31.8-35.4); Mean Corpuscular Hemoglobin 30.1 pg (27.0-31.2); Mean Corpuscular Volume 88.8 fl (80-94); Nucleated Red Blood Cells % 0 %; Platelet Count 209 K/mm3 (142-424); Red Blood Count 4.02 M/mm3 (4.60-6.20); Red Cell Distribution Width-SD 50.4 fL; White Blood Count 10.1 K/mm3 (4.8-10.8)
[2025-05-21 09:15] LABS: Albumin Level 4.0 g/dl (3.5-5.0); Chloride 92 mmol/L (98-107); Potassium 4.0 mmoL/L (3.5-5.1); Sodium 130 mmol/L (136-145)
[2025-05-21 09:18] LABS: Alanine Aminotransferase 33 U/L (12-78); Albumin/Globulin Ratio 1.3 (1.1-1.8); Alkaline Phosphatase 74 U/L (38-126); Anion Gap 11.0 mEq/L (5-15); Aspartate Amino Transferase 31 U/L (17-59); Bilirubin,Total 1.0 mg/dl (0.2-1.3); Blood Urea Nitrogen 60 mg/dl (9-20); Calcium 8.9 mg/dl (8.4-10.2); Carbon Dioxide 31 mmol/L (22.0-30.0); Creatinine Clearance Estimated 22 mL/min (50-200); Creatinine,Serum 3.50 mg/dl (0.66-1.25); Estimated Glomerular Filt Rate 17 ml/min (>60); GFR (African American) 21 ML/MIN (>60); Globulin 3.2 g/dL (1.3-3.2); Glucose 227 mg/dl (74-100); Magnesium 2.4 mg/dl (1.6-2.3); Total Protein,Serum 7.2 g/dl (6.3-8.2)
[2025-05-21] MEDS: OXYCODONE 5MG W/APAP 325MG TABLET 1 EACH PO (10:25)
[2025-05-21] MEDS: humaLOG 100 UNITS/ML 10ML VIAL (SSI) SUBCUT (10:51)
[2025-05-21 11:03] LABS: POC Glucose,Bedside 270 (70-110)
[2025-05-21 12:00] VITALS: BP 114/66; PULSE 72; RESP 20; TEMP 36.9; O2SAT 98
--- NOTE | 2025-05-21 13:34 | P.DS_ITS ---
General Admission date:: 05/19/25 HPI HPI HPI: Mr. Carrasco is a 74-year-old male who presented to the emergency department today with chest pain. He was recently discharged from the hospital on 05/16/2025. He has a known heart failure with reduced ejection fraction, EF 10 to 15%. Recent hospitalization was due to hyperglycemia (700s) and electrolyte abnormalities in the setting of his chronic kidney disease. He has a known [facility] history of insulin-dependent diabetes, hypothyroidism, HFrEF, hypertension, atrial fibrillation, CAD, CABG, and GERD. Workup was done in the emergency department was significant for troponin of 0.05 (patient baseline), ventricular ectopic beats on his EKG, creatinine 3.7, WBC 14.5. The ED physician discussed the case with Dr. Martins and recommendation was made for the patient to be admitted to the hospital due to high risk of arrhythmia decompensating into ventricular tachycardia. Hospital medicine was consulted for admission and management of patient care. Hospital Course Hospital Course Hospital Course: Mr. Carrasco is a 74-year-old male who presented to the emergency department with chest pain. He was recently discharged from the hospital on 05/16/2025. He has a known heart failure with reduced ejection fraction, EF 10 to 15%. Recent hospitalization was due to hyperglycemia (700s) and electrolyte abnormalities in the setting of his chronic kidney disease. He has a known medical history of insulin-dependent diabetes, hypothyroidism, HFrEF, hypertension, atrial fibrillation, CAD, CABG, and GERD. Workup was done in the emergency department was significant for troponin of 0.05 (patient baseline), ventricular ectopic beats on his EKG, creatinine 3.7, WBC 14.5. The ED physician discussed the case with Dr. Martins and recommendation was made for the patient to be admitted to the hospital due to high risk of arrhythmia decompensating into ventricular tachycardia. Hospital medicine was consulted for admission and management of patient care. I agreed to admit the patient, plan of care as follows: #Chest pain #Ventricular ectopy ? Patient denies chest pain, does state that he there is some intermittent chest tightness, he does also state that this is baseline for him. Troponin at patient baseline 0.05 trending to 0.04. ? Continue Plavix 75 mg daily, atorvastatin 40 mg at bedtime, metoprolol 25 mg daily, and isosorbide 20 mg 3 times daily. ? EKG showed ventricular ectopy, narrow QRS complex. ? Cardiology consulted, s/p dual-chamber AICD implantation on 05/22/2025. Patient tolerated procedure well. States he feels much better, less chest heaviness. ? Medically stable for discharge, will follow-up with cardiology within 1 week. #HFrEF ? Patient appears euvolemic. No edema, lungs CTA. Denies shortness of breath, cough. ? Continue Bumex 2 mg twice daily and hydralazine 20 mg 3 times daily. #Paroxysmal A-fib ? Patient on amiodarone 200 mg daily, maintaining NSR. ? Patient on OAC, Xarelto 15 mg daily, holding in anticipation of defibrillator. #CKD, stage IV: Patient creatinine on admission 3.7. Baseline between 2.5-3. Creatinine 3.5 today. Likely cardiorenal, from poor cardiac output. #Diabetes, insulin-dependent ? ACHS glucose checks, SSI ? Continue Lantus 35 units at bedtime #Hypothyroidism: Continue levothyroxine 100 mcg daily. TSH 05/13/2025 -19.10, repeat TSH this admission 7.94. #GERD: Continue omeprazole 40 mg daily Exam Data for Last 24 hours Vital signs and Labs for Last 24 Hours: Temp Pulse Resp BP Pulse Ox O2 Del Method O2 Flow Rate 98.5 F 72 20 114/66 98 Room Air 2 05/21/25 12:00 05/21/25 12:00 05/21/25 12:00 05/21/25 12:00 05/21/25 12:00 05/21/25 12:00 05/19/25 12:15 Laboratory Results - last 24 hr 05/20/25 16:02: POC Glucose 167 H 05/20/25 20:25: POC Glucose 245 H 05/21/25 05:52: POC Glucose 70 05/21/25 09:00: WBC 10.1, RBC 4.02 L, Hgb 12.1 L, Hct 35.7 L, MCV 88.8, MCH 30.1, MCHC 33.9, RDW 15.6, Plt Count 209, MPV 9.3, Neut % (Auto) 72.6, Lymph % (Auto) 13.4, [place] % (Auto) 10.7 H, Eos % (Auto) 2.5, Baso % (Auto) 0.3, Neut # (Auto) 7.3, Lymph # (Auto) 1.4, [place] # (Auto) 1.1 H, Eos # (Auto) 0.3, Baso # (Auto) 0.0, Sodium 130 L, Potassium 4.0, Chloride 92 L, Carbon Dioxide 31 H, Anion Gap 11.0, BUN 60 H, Creatinine 3.50 H, Estimated Creat Clear 22, Estimated GFR 17 L*, Est GFR ( Amer) 21 L, Glucose 227 H, Calcium 8.9, Magnesium 2.4 H, Total Bilirubin 1.0, AST 31, ALT 33, Alkaline Phosphatase 74, Total Protein 7.2, Albumin 4.0, Globulin 3.2, Albumin/Globulin Ratio 1.3 05/21/25 10:47: POC Glucose 270 H I & O for Last 24 hours: Intake & Output 05/18/25 05/19/25 05/20/25 05/21/25 23:59 23:59 23:59 23:59 Intake Total 1090 / 1090 380 / 480 540 / 540 Output Total 1100 / 1100 1525 / 1525 700 / 700 Balance -10 / -10 -1145 / -1045 -160 / -160 Weight 80.739 kg 81.737 kg 82.372 kg Constitutional Constitutional: no acute distress *Routine HEENT Exam Head: Present normocephalic Eye: Present EOMI and PERRL ENT: Present mucous membranes moist *Routine Neck Exam Neck: Present supple; Absent lymphadenopathy *Routine Respiratory Exam Respiratory: Present CTA bilaterally *Routine Cardiovascular Exam Cardiovascular: Present RRR *Routine Abdominal Exam Abdominal: Present soft and normoactive bowel sounds; Absent tenderness *Routine Extremities Exam Extremities: Absent cyanosis, clubbing or edema *Routine Skin Exam Skin: Present warm; Absent rash *Routine Neurological Exam Neurological: Present alert and oriented X3 Results Data Completed and Pending Labs on day of discharge: Labs from last 24 hours 05/21/25 05/21/25 05/21/25 10:47 09:00 05:52 WBC 10.1 RBC 4.02 L Hgb 12.1 L Hct 35.7 L MCV 88.8 MCH 30.1 MCHC 33.9 RDW 15.6 Plt Count 209 MPV 9.3 Neut % (Auto) 72.6 Lymph % (Auto) 13.4 [place] % (Auto) 10.7 H Eos % (Auto) 2.5 Baso % (Auto) 0.3 Neut # (Auto) 7.3 Lymph # (Auto) 1.4 [place] # (Auto) 1.1 H Eos # (Auto) 0.3 Baso # (Auto) 0.0 Sodium 130 L Potassium 4.0 Chloride 92 L Carbon Dioxide 31 H Anion Gap 11.0 BUN 60 H Creatinine 3.50 H Estimated Creat Clear 22 Estimated GFR 17 L* Est GFR ( Amer) 21 L Glucose 227 H POC Glucose 270 H 70 Calcium 8.9 Magnesium 2.4 H Total Bilirubin 1.0 AST 31 ALT 33 Alkaline Phosphatase 74 Total Protein 7.2 Albumin 4.0 Globulin 3.2 Albumin/Globulin Ratio 1.3 05/20/25 05/20/25 20:25 16:02 WBC RBC Hgb Hct MCV MCH MCHC RDW Plt Count MPV Neut % (Auto) Lymph % (Auto) [place] % (Auto) Eos % (Auto) Baso % (Auto) Neut # (Auto) Lymph # (Auto) [place] # (Auto) Eos # (Auto) Baso # (Auto) Sodium Potassium Chloride Carbon Dioxide Anion Gap BUN Creatinine Estimated Creat Clear Estimated GFR Est GFR ( Amer) Glucose POC Glucose 245 H 167 H Calcium Magnesium Total Bilirubin AST ALT Alkaline Phosphatase Total Protein Albumin Globulin Albumin/Globulin Ratio DS: Diagnosis Discharge Diagnosis (1) Chest pain: Status: Acute Code(s): R07.9 - Chest pain, unspecified Qualifiers: Chest pain type: chest pain due to myocardial ischemia Ischemic chest pain type: stable angina pectoris Qualified Code(s): I20.89 - Other forms of angina pectoris (2) Ventricular ectopy: Status: Acute Code(s): I49.3 - Ventricular premature depolarization (3) Ischemic cardiomyopathy: Status: Acute Code(s): I25.5 - Ischemic cardiomyopathy (4) HFrEF (heart failure with reduced ejection fraction): Status: Chronic Code(s): I50.20 - Unspecified systolic (congestive) heart failure (5) PAF (paroxysmal atrial fibrillation): Status: Acute Code(s): I48.0 - Paroxysmal atrial fibrillation (6) Uncontrolled type 2 diabetes mellitus: Status: Acute Qualifiers: Glycemic state: with hyperglycemia Qualified Code(s): E11.65 - Type 2 diabetes mellitus with hyperglycemia (7) CKD stage 4 due to type 2 diabetes mellitus: Status: Chronic Code(s): E11.22 - Type 2 diabetes mellitus with diabetic chronic kidney disease; N18.4 - Chronic kidney disease, stage 4 (severe) (8) Coronary artery disease: Status: Chronic Code(s): I25.10 - Atherosclerotic heart disease of [place] coronary artery without angina pectoris Qualifiers: Associated angina: with other forms of angina Coronary Disease- Associated Artery/Lesion type: bypass graft [place] vs. transplanted heart: [place] heart Qualified Code(s): I25.708 - Atherosclerosis of coronary artery bypass graft(s), unspecified, with other forms of angina pectoris (9) Hypothyroidism (acquired): Status: Chronic Code(s): E03.9 - Hypothyroidism, unspecified Meds Home Medications and Allergies Home Medications ?Medication ?Instructions ?Recorded ?Confirmed ?Type acetaminophen 500 mg tablet 500 mg PO Q6HP PRN Mild Pa in 03/08/25 05/19/25 History (Scale Score 1-4) atorvastatin 40 mg tablet 40 mg PO HS #90 tabs 5 05/19/25 Rx clopidogrel 75 mg tablet 75 mg PO DAILY #90 tabs 06/3005/19/25 Rx omeprazole 40 mg capsule,delayed 40 mg PO DAILY #90 ca ps 03/14/25 05/19/25 Rx release bumetanide 2 mg tablet 2 mg PO BID 30 days #60 tabs 04/05/25 05/19/25 Rx ferrous sulfate 325 mg (65 mg 325 mg PO DAILY #90 tabs 04/05/25 05/19/25 Rx iron) tablet isosorbide dinitrate 20 mg tablet 20 mg PO TID 30 days #90 tabs 04/05/25 05/19/25 Rx dapagliflozin propanediol 10 mg 10 mg PO DAILY #30 tab s 04/06/25 05/19/25 Rx tablet (Farxiga) metoprolol succinate 25 mg 25 mg PO DAILY #30 tabs 11/3005/19/25 Rx tablet,extended release 24 hr hydralazine 10 mg tablet 20 mg (2 x 10 mg) PO TID 30 days 04/22/25 05/19/25 Rx #180 tabs levothyroxine 100 mcg tablet 100 mcg PO DAILY #90 tabs 04/22/25 05/19/25 Rx amiodarone 200 mg tablet 200 mg PO DAILY 30 days #30 tabs 05/12/25 05/19/25 Rx blood-glucose sensor (Dexcom G6 #9 ea 05/14/25 5 Rx Sensor device) blood-glucose transmitter (Dexcom #1 ea 05/14/2505/19 Rx G6 Transmitter device) blood-glucose,home administrator,cont #1 ea 05/14/25 05/19/25 Rx (Dexcom G6 Hospital Unit Coordinator) insulin lispro 100 unit/mL 40 unit SQ TID 05/15/25 History subcutaneous pen (Humalog KwikPen (U-100) Insulin) rivaroxaban 15 mg tablet (Xarelto) 15 mg PO QPMWITHMEA L 05/15/25 05/19/25 History insulin glargine 100 unit/mL 35 unit (0.35 mL) SQ HS 3 0 days #0 05/16/25 Rx subcutaneous solution (Lantus mL U-100 Insulin) New Prescriptions to Start Prescriptions: Allergies Allergy/AdvReac Type Severity Reaction Status Date / Time amoxicillin Allergy Rash Verified 05/13/25 14:58 Penicillins Allergy Rash Verified 05/13/25 14:58 Discharge Plan Disposition Patient Disposition: Home, Self-Care Condition: Fair Discharge Order Discharge Orders: Discharge Order (Routine); Ordered 05/21/25 Ordered By: Joel Corona Follow up Plan Follow up with: Gregory Worthington PA [Physician Piercing Machine Operator, Cardiology] - 1 week Prescriptions/Medication Reconciliation: Continued levothyroxine 100 mcg tablet 100 mcg PO DAILY Qty: 90 2RF metoprolol succinate 25 mg tablet extended release 24 hr 25 mg PO DAILY Qty: 30 2RF dapagliflozin propanediol [Farxiga] 10 mg tablet 10 mg PO DAILY Qty: 30 2RF acetaminophen 500 mg tablet 500 mg PO Q6HP PRN (Reason: Mild Pain (Scale Score 1-4)) atorvastatin 40 mg tablet 40 mg PO HS Qty: 90 3RF clopidogrel 75 mg tablet 75 mg PO DAILY Qty: 90 1RF omeprazole 40 mg capsule,delayed release(DR/EC) 40 mg PO DAILY Qty: 90 1RF (DME) Dexcom G6 Sensor Device See Rx Instructions .Route Qty: 9 3RF Rx Instructions: As directed (DME) Dexcom G6 Hospital Unit Coordinator Misc See Rx Instructions .Route Qty: 1 0RF Rx Instructions: As directed (DME) Dexcom G6 Transmitter Device See Rx Instructions .Route Qty: 1 0RF Rx Instructions: As directed bumetanide 2 mg tablet 2 mg PO BID 30 Days Qty: 60 0RF ferrous sulfate 325 mg (65 mg iron) tablet 325 mg PO DAILY Qty: 90 0RF isosorbide dinitrate 20 mg tablet 20 mg PO TID 30 Days Qty: 90 0RF hydralazine 10 mg tablet 20 mg PO TID 30 Days Qty: 180 0RF Rx Instructions: Hold if SBP < 100. amiodarone 200 mg tablet 200 mg PO DAILY 30 Days Qty: 30 5RF insulin lispro [Humalog KwikPen Insulin] 100 unit/mL insulin pen 40 unit SQ TID Xarelto 15 mg tablet 15 mg PO QPMWITHMEAL Patient Comments: TAKE 1 TABLET BY MOUTH ONCE A DAY with evening meal insulin glargine [Lantus U-100 Insulin] 100 unit/mL solution 35 unit SQ HS 30 Days Qty: 0 0RF Problem Reconciliation Problems Reviewed?: Yes Patient Discharge Instructions Patient Instructions: DI for Heart Failure, DI for Automatic Cardiovert er/Defibrillator Implantation, DI for Moderate Sedation, Stop Light Heart Failure Print Language: Turkish Providers Primary Care Provider: Marielos Amaral Admit Provider: Joel Corona Attending Provider: Joel Corona
--- NOTE | 2025-05-24 11:32 | SW/DCPLANNER ---
Phone patient x2. left message with name and call back number. Claus Trejo
--- NOTE | 2025-05-24 12:08 | SW/DCPLANNER ---
Spoke with patient on the phone. Patient stated that he is aware of his upcoming appointments. Patient stated that he was able to get his medicine picked up. Patient stated that he has no concerns or questions at this time. Claus Trejo
== END 2025-05-21 14:30 | disposition home or self-care (01) | DRG 277 ==
LOC: ER 12:21 → 2ND 14:47
PROVIDERS: Internal Medicine; Admitting Provider Student in an Organized Health Care Education/Training Program; Emergency Provider Student in an Organized Health Care Education/Training Program; PCP Nurse Practitioner Family; Visit Provider Student in an Organized Health Care Education/Training Program
PROC: 0JH608Z Insertion of Defibrillator Generator into Chest Subcutaneous Tissue and Fascia, Open Approach (ICD-10-PCS; CPT 33249; principal; 2025-05-20 13:00)
DX: I49.3 Ventricular premature depolarization (principal); I13.0 Hypertensive heart and chronic kidney disease with heart failure and stage 1 through stage 4 chronic kidney disease, or unspecified chronic kidney disease; I50.22 Chronic systolic (congestive) heart failure; N18.4 Chronic kidney disease, stage 4 (severe); I25.118 Atherosclerotic heart disease of native coronary artery with other forms of angina pectoris; I48.0 Paroxysmal atrial fibrillation; E11.22 Type 2 diabetes mellitus with diabetic chronic kidney disease; E03.9 Hypothyroidism, unspecified; K21.9 Gastro-esophageal reflux disease without esophagitis; I25.5 Ischemic cardiomyopathy; E78.5 Hyperlipidemia, unspecified; Z88.0 Allergy status to penicillin; Z87.891 Personal history of nicotine dependence; Z95.1 Presence of aortocoronary bypass graft; Z79.02 Long term (current) use of antithrombotics/antiplatelets; Z79.899 Other long term (current) drug therapy; Z79.890 Hormone replacement therapy; Z79.4 Long term (current) use of insulin; Z95.5 Presence of coronary angioplasty implant and graft
CPT/HCPCS: 36415; 71045; 80048; 80053; 82550; 82570; 82962; 83735; 84439; 84443; 84484; 84540; 85025; 93005; C1721; C1895; C1898; J0736; J2003; J2004; J2250; J2704; J3010; J7030